=== PATIENT | female | born 1985 | race Caucasian/White ===

== ENCOUNTER → 2016-06-14 | Outpatient (CLI) | payer BC, OTHER ==
[~2016-06-14] MED LIST: ABL/5 PO; ABL10 PO; ACET-1222 PO; ADVIN50/60 INH; ALBU18002 INH; ANT25 PO; ARIP1TAB PO; ARIP1TAB15 PO; ARIP20TA4 PO; ARIP30TA3 PO; BENZ100C7 PO; BENZ100C84 PO; BND25 PO; BUSP5TAB59 PO; CGN1X PO; CHOL200010 PO; CLC/300 PO; CLON0.5T3 PO; CPR500 PO; DFL100 PO; DIPH25CA65 PO; DOCU-105 PO; DOCU100C31 PO; DOXY100C2 PO; DOXYCYLINE PO; ELET20TA PO; ERTA1INJ IV; FERR1TAB13 PO; FERR325T PO; FERR325T51 PO; FLUC100T4 PO; FLUC200T4 PO; GABA1CAP4 PO; GUAI1TAB68 PO; HYDR-3124 PO; HYDR-5688 PO; HYOS1TAB PO; INDO-22 PO; INDO1CAP34 PO; LEVAAER2 INH; LEVO25TA5 PO; LEVO50TA6 PO; LEVOPOW36 PO; LINA1CAP2 PO; LITH1TAB PO; LITH600C PO; LTH300T PO; LTHSR450 PO; MAGN1SOL7 PO; MCRB100 PO; MCRB100HP PO; MCRK20 PO; MCTP EXT; MECL1TAB42 PO; MGNO400 PO; MGRSP NAE; MICO1POW8 TOP; MISCCAP80 PO; MOMLX PO; MRLP17 PO; MTRG45 TOP; MULTTAB58 PO; NITR-5 PO; NORE-38 PO; NORE-39 PO; NORT75CA PO; NRT/25 PO; NYST100010 TOP; NYST80OI TOP; NYSTCRE11; ONDA4TAB10 SL; ONDA4TAB9 PO; POTA10CA28 PO; PROB1TAB16 PO; PRT/40 PO; RISP1TAB3 PO; RISP1TAB68 PO; RIVA1.5T PO; RSP1 PO; SENN8.6T13 PO; SNG10 PO; SYN25 PO; TOBRAMYCIN PO; TOPI1CAP3 PO; TOPI25TA99 PO; TOPI50TA16 PO; TPM25 PO; TRAM-10 PO; TRD10 PO; ULT50 PO; VNTHFA/IN INH; VST25HP PO; VTMB12 PO; WOUN1PAD EXT; XPNINS NEB; XRL10 PO; XRL15 PO; XRL20 PO; ZNT/150 PO; ZNTT/150 PO; [UNRECOGNIZED DRUG - CODE] IART; [UNRECOGNIZED DRUG - CODE] IV; [UNRECOGNIZED DRUG - CODE] IV; [UNRECOGNIZED DRUG - CODE] IV; [UNRECOGNIZED DRUG - CODE] PO
== END | disposition home or self-care (01) ==
LOC: C.FOODA 10:12
PROVIDERS: ATTEND Family Medicine
DX: E66.3 Overweight (principal)

== ENCOUNTER 2016-06-24 13:32 | Inpatient (IN) | payer BC, OTHER ==
[~2016-06-24] VITALS: Ht 119.4 cm; Wt 110.0 kg
[~2016-06-24 13:32] MED LIST changes: -ABL/5 PO; -ABL10 PO; -ADVIN50/60 INH; -ALBU18002 INH; -ARIP1TAB PO; -ARIP20TA4 PO; -ARIP30TA3 PO; -BENZ100C7 PO; -BENZ100C84 PO; -BND25 PO; -BUSP5TAB59 PO; -CGN1X PO; -CHOL200010 PO; -CLC/300 PO; -CLON0.5T3 PO; -CPR500 PO; -DFL100 PO; -DOCU100C31 PO; -DOXY100C2 PO; -DOXYCYLINE PO; -ERTA1INJ IV; -FERR1TAB13 PO; -FERR325T PO; -FLUC100T4 PO; -GABA1CAP4 PO; -GUAI1TAB68 PO; -HYDR-3124 PO; -HYDR-5688 PO; -HYOS1TAB PO; -INDO-22 PO; -INDO1CAP34 PO; -LEVO25TA5 PO; -LEVO50TA6 PO; -LEVOPOW36 PO; -LINA1CAP2 PO; -LITH1TAB PO; -LTH300T PO; -LTHSR450 PO; -MAGN1SOL7 PO; -MCRB100 PO; -MCRB100HP PO; -MCRK20 PO; -MCTP EXT; -MECL1TAB42 PO; -MGNO400 PO; -MGRSP NAE; -MICO1POW8 TOP; -MISCCAP80 PO; -MOMLX PO; -MRLP17 PO; -MTRG45 TOP; -MULTTAB58 PO; -NITR-5 PO; -NORE-38 PO; -NORE-39 PO; -NORT75CA PO; -NRT/25 PO; -NYSTCRE11; -ONDA4TAB10 SL; -POTA10CA28 PO; -PROB1TAB16 PO; -PRT/40 PO; -RISP1TAB3 PO; -RISP1TAB68 PO; -RIVA1.5T PO; -RSP1 PO; -SNG10 PO; -SYN25 PO; -TOBRAMYCIN PO; -TOPI1CAP3 PO; -TOPI25TA99 PO; -TOPI50TA16 PO; -TPM25 PO; -ULT50 PO; -VNTHFA/IN INH; -VTMB12 PO; -WOUN1PAD EXT; -XPNINS NEB; -XRL10 PO; -XRL15 PO; -XRL20 PO; -ZNT/150 PO; -[UNRECOGNIZED DRUG - CODE] IART; -[UNRECOGNIZED DRUG - CODE] IV; -[UNRECOGNIZED DRUG - CODE] IV; -[UNRECOGNIZED DRUG - CODE] IV; -[UNRECOGNIZED DRUG - CODE] PO
--- NOTE | 2016-06-24 14:54 | EMERGENCY ROOM VISIT NOTE ---
History Report prepared by James: Quita Valdez Under the Supervision of: Dr. Devin Martinez M.D. First contact with patient: 13:56 Chief Complaint: MENTAL HEALTH EVALUATION Stated Complaint: SUICIDAL THOUGHTS History of Present Illness The patient is a 31 year old female who presents to the Emergency Room for mental health evaluation. The patient has a history of mental health issues including depression. The patient notes that 6 weeks ago her [place] medication was increased to twice a day due to her depression worsening. She notes that beginning 3 days ago she began to hear voices that were telling her to hurt herself. She did see her Therapist after hearing these voices and was told to call her Psychiatrist but could not get an appointment and was told to come to the ED for inpatient care. The patient notes that she has tried to overdose before but states that she is not in danger now due to her parent's making the house very safe for her. The patient has Spina Bifida and is wheelchair bound. This week she finished a course of antibiotics for a urinary infection. The patient was an inpatient here at [facility] for mental health in July 2015. Source of History: patient Onset: 3 days SHOE SHINER Position: other (global) Quality: other (mental health evaluation) Timing: constant Note: The patient notes hearing voices, depression, and suicidal ideations. Review of Systems See HPI for pertinent positives & negatives. A total of 10 systems reviewed and were otherwise negative. Past Medical & Surgical Medical Problems: (1) Allergic reaction caused by a drug (2) Anxiety (3) Bipolar 1 disorder (4) Depression (5) Gastroparesis (6) GERD (gastroesophageal reflux disease) (7) Hydrocephalus (8) Intractable headache (9) MRSA (methicillin resistant Staphylococcus aureus) (10) Osteomyelitis (11) Shunt placement with revision x8 (12) Spina bifida (13) UTI (urinary tract infection) Surgical Problems: (1) S/P BKA (below knee amputation) bilateral Family History Cancer Diabetes mellitus Lung disease Social History Smoking Status: Never Smoker Alcohol Use: none Drug Use: none Marital Status: single Housing Status: lives with family Occupation Status: unemployed, other Current/Historical Medications Scheduled Aripiprazole (Aripiprazole), 10 MG PO QAM Cholecalciferol (Vitamin D), 2,000 INTER.UNIT PO DAILY Clonazepam (Klonopin), 0.5 MG PO BID Ferrous Sulfate (Iron Supplement), 325 MG PO HS Fluticasone Prop/Salmeterol (Advair Diskus 500/50 60 Dose), 1 PUFF INH BID Gabapentin (Gabapentin), 300 MG PO TID Hydroxyzine Hcl (Atarax), 25 MG PO QD@1200 Hyoscyamine Sulfate (Levsin), 0.125 MG PO QID Linaclotide (Linzess), 290 MCG PO DAILY [place] Carbonate ([place] Carbonate), 600 MG PO TID Multiple Vitamin (Multivitamin), 1 TAB PO DAILY Nortriptyline Hcl (Pamelor), 75 MG PO HS Pantoprazole (Pantoprazole Sodium), 40 MG PO QAM Ranitidine (Zantac), 150 MG PO HS Wound Dressings (Hydrofera Blue Foam Dress), 1 APPLN TOP DAILY Scheduled PRN Acetaminophen (Acetaminophen Extra Stren), 500-1,000 MG PO Q6H PRN for Pain Docusate Sodium (Dulcolax Stool Softener), 100 MG PO DAILY PRN for Constipation Eletriptan Hydrobromide (Relpax), 20 MG PO UD PRN for Migraine Hydroxyzine HCl (Hydroxyzine Pamoate), 25 MG PO Q8 PRN for Anxiety Ketorolac Tromethamine (Ketorolac Tromethamine), 10-20 MG PO UD PRN for Headache Meclizine HCl (Meclizine HCl), 25 MG PO Q8 PRN for Dizziness or Vertigo Nystatin (Topical) (Nystatin), 1 APPLN TOP UD PRN for Yeast Outbreaks Nystatin (Topical) (Nystop), 1 APPLN TOP UD PRN for Skin Irritation Ondansetron (Ondansetron HCl), 4 MG PO DAILY PRN for Nausea Sennosides (Senna Lax), 8.6 MG PO DAILY PRN for Constipation Tramadol (Ultram), 50 MG PO Q4H PRN for Pain Allergies Coded Allergies: Adhesives (Verified Allergy, Intermediate, TAPE- HIVES, 06/24/16) Ceftriaxone (Verified Allergy, Intermediate, rash, 06/24/16) Chlorhexidine (Verified Allergy, Intermediate, RASH, 06/24/16) Ciprofloxacin (Unverified Allergy, Intermediate, hives, 06/24/16) Latex (Verified Allergy, Intermediate, hives, 06/24/16) Levofloxacin (Verified Allergy, Intermediate, rash, 06/24/16) Linezolid (Verified Allergy, Intermediate, rash, 06/24/16) Piperacillin (Verified Allergy, Intermediate, SEVERE RASH, HIVES, 06/24/16) Tazobactam (Verified Allergy, Intermediate, SEVERE RASH, HIVES, 06/24/16) Vancomycin (Verified Allergy, Intermediate, rash, 06/24/16) Tobramycin (Verified Allergy, Mild, MILD RASH ON ARM, RED FACE, 06/24/16) IMPROVED AFTER BENADRYL, TAKING REST OF DOSE Amikacin (Verified Allergy, Unknown, PER DR ROBINS,RXN WAS TO ZOSYN NOT AMKrash;hives, 06/24/16) Sulfamethoxazole w/Trimethoprim (Unverified Allergy, Unknown, Hives, ) Can be pretreated with 10mg Zytrec 45 min prior to admin Physical Exam Vital Signs Date Time Temp Pulse Resp B/P Pulse Ox O2 Delivery O2 Flow Rate FiO2 06/24/16 19:00 90 20 126/84 99 Room Air 06/24/16 16:27 102 18 116/78 98 Room Air 06/24/16 13:38 36.6 107 18 131/84 96 Room Air Physical Exam GENERAL: Patient is in no acute distress. Meade catheter in place with clear urine draining. HEENT: No acute trauma, normocephalic atraumatic, mucous membranes moist, no nasal congestion, no scleral icterus. NECK: No stridor, no adenopathy, no meningismus, trachea is midline. LUNGS: Few scattered wheezing, no rhonchi, breath sounds are equal, no respiratory distress. HEART: Mildly tachycardic but regular, no murmur. ABDOMEN: Soft, nontender, bowel sounds positive, no hernias, no peritonitis. EXTREMITIES: No evidence of trauma to upper extremities, lower extremities consistent with wheelchair bound status. NEUROLOGIC: Awake, alert, oriented x 3. Moving upper extremities equally. Lower extremities consistent with spina bifida and wheelchair bound status. SKIN: No rash, no jaundice, no diaphoresis. PSYCH: Cooperative, voluntary, admits to suicidal thoughts but states that she does not think she could hurt herself because she is so closely watched. Medical Decision & Procedures Laboratory Results 06/24/16 17:10 06/24/16 17:10 Test 06/24/16 15:00 06/24/16 17:10 Urine Color YELLOW Urine Appearance CLEAR (CLEAR) Urine pH 7.5 (4.5-7.5) Urine Specific [place] 1.002 (1.000-1.030) Urine Protein NEG (NEG) Urine Glucose (UA) NEG (NEG) Urine Ketones NEG (NEG) Urine Occult Blood TRACE (NEG) Urine Nitrite NEG (NEG) Urine Bilirubin NEG (NEG) Urine Urobilinogen NEG (NEG) Urine Leukocyte Esterase MODERATE (NEG) Urine WBC (Auto) 10-30 /hpf (0-5) Urine RBC (Auto) 0-4 /hpf (0-4) Urine Hyaline Casts (Auto) 1-5 /lpf (0-5) Urine Epithelial Cells (Auto) 10-20 /lpf (0-5) Urine Bacteria (Auto) 1+ (NEG) Urine Opiates Screen NEG (NEG) Urine Methadone, Qualitative NEG (NEG) Urine Barbiturates NEG (NEG) Urine Phencyclidine (PCP) Level NEG (NEG) Ur Amphetamine/Methamphetamine NEG (NEG) MDMA (Ecstasy) Screen NEG (NEG) Urine Benzodiazepines Screen NEG (NEG) Urine Cocaine Metabolite NEG (NEG) Urine Marijuana (THC) NEG (NEG) Red Blood Count 4.27 M/uL (4.2-5.4) Mean Corpuscular Volume 97.4 fL (80-100) Mean Corpuscular Hemoglobin 31.1 pg (25-34) Mean Corpuscular Hemoglobin Concent 32.0 g/dl (32-36) RDW Standard Deviation 53.5 fL (36.4-46.3) RDW Coefficient of Variation 15.1 % (11.5-14.5) Mean Platelet Volume 10.7 fL (7.4-10.4) Anion Gap 11.0 mmol/L (3-11) Est Creatinine Clear Calc Drug Dose 112.8 ml/min Estimated GFR () 141.2 Estimated GFR (Non- 121.9 BUN/Creatinine Ratio 14.0 (10-20) Calcium Level 8.9 mg/dl (8.5-10.1) Total Bilirubin 0.2 mg/dl (0.2-1) Aspartate Amino Transf (AST/SGOT) 16 U/L (15-37) Alanine Aminotransferase (ALT/SGPT) 22 U/L (12-78) Alkaline Phosphatase 96 U/L (45-117) Total Protein 7.1 gm/dl (6.4-8.2) Albumin 3.2 gm/dl (3.4-5.0) Globulin 3.9 gm/dl (2.5-4.0) Albumin/Globulin Ratio 0.8 (0.9-2) Human Chorionic Gonadotropin, Qual NEG (NEG) Chemistry Specimen Hemolysis Salicylates Level < 1.7 mg/dl (2.8-20) Acetaminophen Level < 2 ug/ml (10-30) [place] Level 1.2 mMOL/L (0.6-1.2) Ethyl Alcohol mg/dL < 3.0 mg/dl (0-3) Laboratory results reviewed by me. Medications Administered Medications (Trade) Dose Ordered Sig/Brenna Route Start Time Stop Time Status Last Admin Dose Admin Gabapentin (Neurontin Cap) 300 mg NOW STAT PO 06/24/16 19:30 06/24/16 19:35 DC 06/24/16 19:48 300 MG Hyoscyamine Sulfate (Levsin Tab) 0.125 mg NOW STAT PO 06/24/16 19:30 06/24/16 19:35 DC 06/24/16 19:48 0.125 MG [place] Carbonate ([place] Carbonate Tab) 600 mg NOW ONCE PO 06/24/16 20:00 06/24/16 20:01 DC 06/24/16 20:00 600 MG ED Course 1358: The patient was evaluated in room A7. A complete history and physical exam was performed. 1821: Bed search is being done for the patient. 1929: Levsin Tab 0.125 mg PO, [place] Carbonate Tab 600 mg PO, Neurontin Cap 300 mg PO. 2104: The patient will go to [facility] as an inpatient. Medical Decision The patient is a 31 year old female who presents to the ED for mental health evaluation. Differential diagnoses considered include suicidal ideation, UTI, lithium toxicity, thyroid disorder, depression, electrolyte imbalance. . There is no leukocytosis or anemia. No significant electrolyte abnormality, kidney failure or hepatitis. Thyroid testing is still pending. testing is negative. Urinalysis shows some contamination, no obvious infection , urine culture is pending. Urine tox was negative. Alcohol level was undetectable. Aspirin and Tylenol levels were undetectable. [place] level was not toxic. The patient presents with suicidal ideation. She would like to stay in the hospital voluntarily. She has been through this type of situation before. The patient received her normal evening medications. All the meds were given orally. She has been cooperative. She was seen by the [facility]. psychiatric services, the patient will be brought in to this hospital's psychiatric facility. I was asked to order a MRSA nasal swab, this was done, the result is pending. I did feel the patient was medically clear for a psychiatric admission. Impression Primary Impression: Suicidal ideation Scribe Attestation The scribe's documentation has been prepared under my direction and personally reviewed by me in its entirety. I confirm that the note above accurately reflects all work, treatment, procedures, and medical decision making performed by me. Departure Information Dispostion Mental Health Acute Care Referrals Darvin Lea D.O.Int.Med. (PCP) Patient Instructions My [facility]
[2016-06-24 15:22] LABS: URINE APPEARANCE CLEAR (CLEAR); URINE BILIRUBIN NEG (NEG); URINE COLOR YELLOW; URINE NITRITE NEG (NEG); URINE PH 7.5 (4.5-7.5); URINE SPECIFIC GRAVITY 1.002 (1.000-1.030); UROBILINOGEN NEG (NEG); ZZURINE CULT IF INDIC CATH YES
[2016-06-24 15:28] LABS: MANUAL MICROSCOPIC REQUIRED? NO; REVIEW REQ? NO
[2016-06-24 15:48] LABS: BENZODIAZEPINE, URINE NEG (NEG); COCAINE,URINE NEG (NEG); PHENCYCLIDINE, URINE NEG (NEG)
[2016-06-24 17:34] LABS: HEMATOCRIT 41.6 % (37-47); MEAN CELL VOLUME 97.4 fL (80-100); MEAN CORPUSCULAR HEMOGLOBIN 31.1 pg (25-34); MEAN PLATELET VOLUME 10.7 fL (7.4-10.4); PLATELET COUNT 203 K/uL (130-400); RED BLOOD COUNT 4.27 M/uL (4.2-5.4); WHITE BLOOD COUNT 9.87 K/uL (4.8-10.8)
[2016-06-24 18:02] LABS: PREG INTERNAL NEGATIVE QC NEG CLEAR BACKGROUND; PREG INTERNAL POSITIVE QC POS CONTROL LINE
[2016-06-24 18:04] LABS: ACETAMINOPHEN < 2 ug/ml (10-30); ALB/GLOB RATIO 0.8 (0.9-2); CALCIUM 8.9 mg/dl (8.5-10.1); CREATININE 0.62 mg/dl (0.60-1.20); LITHIUM 1.2 mMOL/L (0.6-1.2); POTASSIUM 4.1 mmol/L (3.5-5.1)
[2016-06-24] MEDS ORDERED: LITHIUM CARBONATE 300 MG TAB PO STA (19:30)
[2016-06-24] MEDS ORDERED: GABAPENTIN 300 MG CAP PO STA (19:30)
[2016-06-24] MEDS ORDERED: HYOSCYAMINE SULFATE 0.125 MG SL TAB PO STA (19:30)
[2016-06-24] MEDS ORDERED: LITHIUM CARBONATE 300 MG TAB PO ONE (20:00)
[2016-06-24 21:34] VITALS: O2SAT 97
[2016-06-24] MEDS ORDERED: TRAMADOL HCL 50 MG TAB PO PRN (21:45)
[2016-06-24] MEDS ORDERED: NYSTATIN POWDER 15GM BTL EXT PRN (21:45)
[2016-06-24] MEDS ORDERED: ALUMINUM/MAGNESIUM SUSP 30 ML UDC PO PRN (21:45)
[2016-06-24] MEDS ORDERED: BISMUTH SUBSALICYLATE PER ML OMNICELL CHARGE PO PRN (21:45)
[2016-06-24] MEDS ORDERED: ACETAMINOPHEN 500 MG TAB PO PRN (21:45)
[2016-06-24] MEDS ORDERED: hydrOXYzine HCL 25 MG TAB PO PRN ×2 (21:45)
[2016-06-24] MEDS ORDERED: SENNA 8.6 MG TAB PO PRN (21:45)
[2016-06-24] MEDS ORDERED: KETOROLAC TROMETHAMINE 10 MG TAB PO PRN (21:45)
[2016-06-24] MEDS ORDERED: MECLIZINE HCL 25 MG TAB PO PRN (21:45)
[2016-06-24] MEDS ORDERED: DOCUSATE SODIUM 100 MG CAP PO PRN (21:45)
[2016-06-24] MEDS ORDERED: ONDANSETRON 4 MG TAB PO PRN (21:45)
[2016-06-24] MEDS ORDERED: NYSTATIN OINT 15 GM TUBE EXT PRN (21:45)
[2016-06-24] MEDS ORDERED: MAGNESIUM HYDROXIDE SUSP 30 ML UDC PO PRN (21:45)
[2016-06-24] MEDS ORDERED: SODIUM CHLORIDE 0.65% NA SOLN 45 ML (OCEAN) PRN (21:45)
[2016-06-24 22:02] VITALS: BP 136/89; PULSE 92; TEMP 36.5; Ht 119.4 cm; Wt 110.0 kg
[2016-06-24 22:20] LABS: THYROID STIMULATING HORMONE 6.55 uIu/ml (0.300-4.500)
[2016-06-24] MEDS ORDERED: NURSING VERBAL MED ORDER ONE ×2 (22:45→23:00)
[2016-06-24] MEDS ORDERED: NORTRIPTYLINE HCL 25 MG CAP PO SCH (23:00)
[2016-06-24] MEDS ORDERED: CLONAZEPAM 0.5 MG TAB PO ONE (23:00)
[2016-06-24] MEDS: FLUTICASONE/SALMETEROL (ADVAIR) 500/50 INH 14 PUFF INH SCH (23:50)
[2016-06-24] MEDS: NORTRIPTYLINE HCL 25 MG CAP PO SCH (23:56)
[2016-06-24] MEDS: HYOSCYAMINE SULFATE 0.125 MG SL TAB PO SCH (23:57)
[2016-06-25 06:52] VITALS: BP 118/75; PULSE 98; TEMP 36.5
[2016-06-25] MEDS ORDERED: LITHIUM CARBONATE 300 MG TAB PO SCH (09:00)
[2016-06-25] MEDS ORDERED: ARIPIprazole TAB 10 MG TAB PO SCH (09:00)
[2016-06-25] MEDS: LINACLOTIDE 290 MCG CAP PO SCH ×2 (09:00→09:09)
[2016-06-25] MEDS: FERROUS SULFATE 325 MG TAB PO SCH ×2 (09:07→17:15)
[2016-06-25] MEDS: CLONAZEPAM 0.5 MG TAB PO SCH ×2 (09:08→20:59)
[2016-06-25] MEDS: HYOSCYAMINE SULFATE 0.125 MG SL TAB PO SCH ×4 (09:08→20:59)
[2016-06-25] MEDS: LITHIUM CARBONATE 300 MG TAB PO SCH ×2 (09:09→21:00)
[2016-06-25] MEDS: MULTIVITAMIN TAB PO SCH (09:09)
[2016-06-25] MEDS: GABAPENTIN 300 MG CAP PO SCH ×3 (09:09→21:00)
[2016-06-25] MEDS: CHOLECALCIFEROL 1000 INTER.UNIT TAB PO SCH (09:10)
[2016-06-25] MEDS: PANTOprazole SOD 40 MG TAB PO SCH (09:10)
[2016-06-25] MEDS: FLUTICASONE/SALMETEROL (ADVAIR) 500/50 INH 14 PUFF INH SCH (09:26)
[2016-06-25] MEDS: ARIPIprazole TAB 5 MG TAB PO SCH (09:42)
--- NOTE | 2016-06-25 10:01 | Psych Management Progress Note ---
Psychiatry Miscellaneous Date of Service: Jun 25, 2016. Patient seen, MS assessed. Rates mood as 3. Cooperative with care and treatment plan as outlined by NATURAL RESOURCES PROFESSOR. Encouraged participation in therapeutic activities. Patient overwhelmed today, notes stressor of living with mother and dealing with anger. Amenable to family meeting. She is engaging in group activities.
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
[2016-06-25] MEDS: hydrOXYzine HCL 25 MG TAB PO SCH (11:52)
[2016-06-25] MEDS: RANITIDINE HCL 150 MG TAB PO SCH ×2 (20:59→21:02)
[2016-06-25] MEDS: NORTRIPTYLINE HCL 25 MG CAP PO SCH (21:00)
[2016-06-25] MEDS ORDERED: NORTRIPTYLINE HCL 25 MG CAP PO SCH (21:00)
[2016-06-26 07:02] VITALS: BP 125/77; PULSE 103; TEMP 36.6
[2016-06-26 07:19] LABS: CHOLESTEROL/HDL RATIO 3.6; THYROID STIMULATING HORMONE 8.07 uIu/ml (0.300-4.500)
[2016-06-26] MEDS: FLUTICASONE/SALMETEROL (ADVAIR) 500/50 INH 14 PUFF INH SCH (08:24)
[2016-06-26] MEDS: ARIPIprazole TAB 5 MG TAB PO SCH (08:28)
[2016-06-26] MEDS: FERROUS SULFATE 325 MG TAB PO SCH (08:29)
[2016-06-26] MEDS: HYOSCYAMINE SULFATE 0.125 MG SL TAB PO SCH ×2 (08:30→11:58)
[2016-06-26] MEDS: CLONAZEPAM 0.5 MG TAB PO SCH (08:30)
[2016-06-26] MEDS: GABAPENTIN 300 MG CAP PO SCH ×2 (08:31→13:43)
[2016-06-26] MEDS: PANTOprazole SOD 40 MG TAB PO SCH (08:31)
[2016-06-26] MEDS: CHOLECALCIFEROL 1000 INTER.UNIT TAB PO SCH (08:31)
[2016-06-26] MEDS: MULTIVITAMIN TAB PO SCH (08:31)
[2016-06-26] MEDS: LINACLOTIDE 290 MCG CAP PO SCH (08:32)
[2016-06-26] MEDS ORDERED: VNTHFA/IN INH (08:36)
[2016-06-26] MEDS: LITHIUM CARBONATE 300 MG TAB PO SCH (08:39)
--- NOTE | 2016-06-26 09:33 | Psychiatric Progress Notes ---
Progress Note Date of Service Jun 26, 2016. Interval History 31 yo female admitted voluntarily on 06/25/16 with depression and command hallucinations to kill herself. Stressors include ongoing strife with mother who is her primary caregiver, and of dog in May. Chief Complaint "I'm in a bad mood. ". Subjective Patient was seen & assessed interval progress reviewed with nursing. The patient says that she awoke at 0430 today and could not get back to sleep. Her mood is "grumpy". She says that she continues to her noises "like beeps, and a phone ringing" that are as real to her as my voice is, and occur when she is awake and alert. She admits to fleeting SI this AM when she awoke "but I said ' No way, that ain't happening'.". She was assisted to wash her hair yesterday and change the dressing on her catheter. She denies visual experiences. Nursing reports that she has been quite social with peers, laughing, and described her as childlike. Review of Systems Constitutional: + fatigue (with DILIA) ENT: No dental problems, No hearing loss, No nasal symptoms, No problem reported, No sore throat, No tinnitus, No trouble swallowing, No unusual epistaxis Respiratory: No cough, No dyspnea at rest, No dyspnea on exertion, No hemoptysis, No problem reported, No shortness of breath, No sputum, No wheezing Cardiovascular: No PND, No chest pain, No claudication, No edema, No orthopnea , No palpitations, No problem reported Abdomen: No GI bleeding, No constipation, No diarrhea, No nausea, No pain, No problem reported, No vomiting Musculoskeletal: No calf pain, No joint pain, No muscle pain, No problem reported, No swelling Neurologic: No balance problems, No memory loss, No numbness/tingling, No paralysis, No problem reported, No vertigo, No weakness Psychiatric: + depression symptoms (with auditory hallucinations), + insomnia, + problem reported (irritablity) Sleep Information Total Hours of Sleep: 6.00 Meal Information Percent of Breakfast Consumed: 90 Percent of Dinner Consumed: 50 Mental Status Exam During interview pt is: alert and oriented, cooperative Appearance: appropriately dressed, disheveled Eye contact is: good Motor behavior is: no abnormal motor movements Speech: normal in rate, rhythm & volume Affect: blunted Mood is: depressed, irritable Thought process: goal directed Thought content: other (hallucinations of noises like beeps and phones ringing) Suicidal thought are: present Homicidal thoughts are: denied Hallucinations: denies auditory, denies visual Impression Adjusting well to the structure and support of the milieu. Able to be happy and laugh with her peers. Continues to report hallucinations and poor mood with fleeting SI. Abilify increased yesterday. Will arrange family meeting with mother since much of her unhappiness lies in their dysfunctional relationship and her desire to be more independent, issues that they have struggles with for a long time. UA cultured out pseudomonas and there are no PO sensitive ABX that she can take. Will consult [facility] hospitalists to evaluate. If IV ABX needed, will require transfer to the medical floor. Apollo level also elevated 1.3. Will hold AM dose and restart tonight 300 mg. AM and 600 mg. HS, with another level in 5 days. Plan (1) Migraines (2) Schizoaffective disorder, bipolar type 06/26 - Continue Abilify 12.5 mg daily - Apollo level elevated at 1.3 today. Will reduce dose to 300 mg. AM and 600 mg HS, and hold AM dose today. - Repeat lithium level in 5 days on 07/02 - Q 15 min checks for safety - Reality orientation - Arrange family meeting for tomorrow - Encourage participation in group and individual counseling - Obtain OP records from current providers, and coordinate care - (3) Spina bifida 06/26 - Assist the patient with ADL's as needed - Patient has suprapubic catheter. Change dressing and irrigate daily as per OP routine - Patient has FRIED's associated with hydrocephalus. Continue tramadol and tylenol prn (4) UTI (urinary tract infection) 06/26 - Culture growing pseudomonas, but she is resistant or allergic to available PO ABX. May need IV ABX - Consult [facility] hospitalists to evaluate - Pharmacy is suggesting cefapime 1 gm q 12 hrs Discharge / Aftercare Planning Psychiatrist: Name: Dr. Amanda Date of Appointment: Jun 28, 2016 Therapist: Name: Sandra Baker; [facility] Date of Appointment: Jun 28, 2016 Systems Requirements Planner: Name: Theresa Culp Visit Code E&M Code: 67629 Risk Factors Assessment : Yes /single/: Yes Higher / Fall in social status: No Access to guns: No Health problems: Yes Mental Health Diagnoses: Yes Substance use disorders: No Previous attempt: Yes Previous psychiatric stay: Yes Smoker: No Protective Factors Assessment Adventism beliefs: Yes : No Responsible for young children: No Employed: No Stable relationships: Yes Supportive family: Yes Data Vital Signs Last 24 Hrs: Date Time Temp Pulse Resp B/P Pulse Ox O2 Delivery O2 Flow Rate FiO2 06/26/16 07:02 36.6 103 16 125/77 Meds Administered Last 24 Hrs: Meds Administered (Past 24Hrs) Medications (Trade) Dose Ordered Sig/Brenna Route Start Time Stop Time Status Last Admin Dose Admin Gabapentin (Neurontin Cap) 300 mg NOW STAT PO 06/24/16 19:30 06/24/16 19:35 DC 06/24/16 19:48 300 MG Hyoscyamine Sulfate (Levsin Tab) 0.125 mg NOW STAT PO 06/24/16 19:30 06/24/16 19:35 DC 06/24/16 19:48 0.125 MG Apollo Carbonate (Apollo Carbonate Tab) 600 mg NOW ONCE PO 06/24/16 20:00 06/24/16 20:01 DC 06/24/16 20:00 600 MG Hydroxyzine HCl (Vistaril Tab) 25 mg Q4H PRN PO 06/24/16 21:45 07/24/16 21:44 06/25/16 05:05 25 MG Clonazepam (Klonopin Tab) 0.5 mg BID PO 06/25/16 09:00 07/25/16 08:59 06/26/16 08:30 0.5 MG Salmeterol Xinafoate/ Fluticasone (Advair Diskus 500/50 Inh) 1 puff BID INH 06/25/16 09:00 07/25/16 08:59 06/26/16 08:24 1 PUFF Gabapentin (Neurontin Cap) 300 mg TID PO 06/25/16 09:00 07/25/16 08:59 06/26/16 08:31 300 MG Hydroxyzine HCl (Vistaril Tab) 25 mg QD@1200 PO 06/25/16 12:00 07/25/16 11:59 06/25/16 11:52 25 MG Hyoscyamine Sulfate (Levsin Tab) 0.125 mg QID PO 06/25/16 09:00 07/25/16 08:59 06/26/16 08:30 0.125 MG Multivitamins (Multivitamin Tab) 1 tab DAILY PO 06/25/16 09:00 07/25/16 08:59 06/26/16 08:31 1 TAB Pantoprazole Sodium (Protonix Tab) 40 mg QAM PO 06/25/16 09:00 07/25/16 08:59 06/26/16 08:31 40 MG Ranitidine HCl (zANTac TAB) 150 mg HS PO 06/25/16 21:00 07/25/16 20:59 06/25/16 20:59 150 MG Cholecalciferol (Vitamin D Tab) 2,000 inter.unit DAILY PO 06/25/16 09:00 07/25/16 08:59 06/26/16 08:31 2,000 INTER.UNIT Ferrous Sulfate (Feosol Tab) 325 mg BIDM PO 06/25/16 09:00 07/25/16 08:59 06/26/16 08:29 325 MG Apollo Carbonate (Apollo Carbonate Tab) 600 mg BID PO 06/25/16 09:00 07/25/16 08:59 06/25/16 21:00 600 MG Nortriptyline HCl (Pamelor Cap) 100 mg HS PO 06/24/16 23:00 07/24/16 22:59 06/25/16 21:00 100 MG Clonazepam (Klonopin Tab) 0.5 mg ONE ONCE PO 06/24/16 23:00 06/24/16 23:01 DC 06/24/16 23:55 0.5 MG Aripiprazole (Abilify Tab) 12.5 mg QAM PO 06/25/16 09:00 07/25/16 08:59 06/26/16 08:28 12.5 MG Lab Results Last 24 Hrs: Last 24 Hours Test 06/26/16 06:20 Fasting Glucose 95 mg/dl Triglycerides Level 135 mg/dl Cholesterol Level 190 mg/dl HDL Cholesterol 53 mg/dl LDL Cholesterol, Calculated 110 mg/dl VLDL Cholesterol, Calculated 27 mg/dl Cholesterol/HDL Ratio 3.6 Thyroid Stimulating Hormone (TSH) 8.070 uIu/ml Apollo Level 1.3 mMOL/L Problem Qualifiers (1) Spina bifida: Presence of hydrocephalus: with hydrocephalus
[2016-06-26] MEDS: hydrOXYzine HCL 25 MG TAB PO SCH (11:58)
[2016-06-26] MEDS ORDERED: LTH300T PO ×2 (13:57)
[2016-06-26] MEDS ORDERED: ABL/5 PO (13:57)
--- NOTE | 2016-06-26 13:59 | Discharge Instructions ---
Discharge Instructions Admission Reason for Admission: Major Depression With Psychotic Features Discharge Discharge Diagnosis / Problem: Schizoaffective disorder, bipolar type, depressed Discharge Goals Goal(s): Decrease discomfort Activity Recommendations Activity Limitations: resume your previous activity . Instructions / Follow-Up Instructions / Follow-Up . SPECIAL CARE INSTRUCTIONS: 1. Follow through with your scheduled aftercare appointments. If unable to keep an appointment, please call to reschedule. 2. Take your medication only as prescribed. Medication should not be changed or stopped without the approval of your doctor. In the event of worsening symptoms or concerns about side effects, contact your doctor immediately. 3. Utilize new healthy coping skills, anger management skills, and stress management skills learned during your hospitalization. Journal feelings and process them with a support person. Identify stressors or situations that may result in relapse, deterioration or inappropriate behaviors and develop a plan to deal with those issues. 4. If your coping skills are ineffective and you are in crisis, contact your outpatient providers for direction. If unable to reach your providers, please call the CAN HELP LINE AT or go to the closest Emergency Room. 5. Avoid alcohol and un-prescribed drugs. 6. You have been provided with the Mental Health Advance Directives Pamphlet for your review. AFTERCARE APPOINTMENTS: * Please call your insurance company prior to your scheduled appointment to confirm your aftercare providers are covered. Take your insurance information to your appointments. . Diet Recommendations Diet(s): Regular Diet Laboratory Results Hemoglobin A1c Test 05/04/16 09:15 Range/Units Estimated Average Glucose 88 mg/dl Hemoglobin A1c 4.7 4.5-5.6 % Lipid Panel Test 06/26/16 06:20 Range/Units Triglycerides Level 135 0-150 mg/dl Cholesterol Level 190 0-200 mg/dl HDL Cholesterol 53 mg/dl Cholesterol/HDL Ratio 3.6 LDL Cholesterol, Calculated 110 mg/dl Medical Emergencies . Who to Call and When: Medical Emergencies: If at any time you feel your situation is an emergency, please call 911 immediately. . . "Provider Documentation" section prepared by Lisa Granger. VTE Core Measure Inpt VTE Proph given/why not?: Treatment not indicated [place] Drug Monitoring Program Drug Monitoring Findings: Patient has a UTI, and being transferred to the medical floor for IV antibiotics
[2016-06-26 14:47] VITALS: BP 125/77; PULSE 103; TEMP 36.6; O2SAT 97
[2016-06-26] MEDS ORDERED: LITHIUM CARBONATE 300 MG TAB PO SCH (22:00)
[2016-06-27] MEDS ORDERED: LITHIUM CARBONATE 300 MG TAB PO SCH (09:00)
--- NOTE | 2016-06-27 11:45 | Discharge Summary ---
Discharge Summary Dates / Dispostion Admission Date / Time: Jun 24, 2016 at 21:09 Discharge Date: Jun 26, 2016 Discharge Disposition: Acute care facility Principal Diagnosis (1) Schizoaffective disorder, bipolar type Problem List (1) Migraines (2) Hydrocephalus (3) Spina bifida (4) UTI (urinary tract infection) Consultations Dr. Everette Butler to manage UTI with treatment resistance Discharge / Aftercare Planning Psychiatrist: Name: Dr. Amanda Date of Appointment: Jun 28, 2016 Therapist: Name: Sandra Baker; [facility] Date of Appointment: Jun 28, 2016 Geotechnical Field Technician: Name: Theresa Culp Medication Reconciliation New Medications: [place] Carbonate ([place] Carbonate) 300 Mg Tab 300 MG PO QAM, #1 TAB [place] Carbonate ([place] Carbonate) 300 Mg Tab 600 MG PO HS, #1 TAB Changed Medications: Aripiprazole (Abilify) 5 Mg Tab 12.5 MG PO DAILY for 30 Days, #75 TAB 1 Refill (Changed from: Aripiprazole 10 Mg Tab 10 Mg PO QAM) Continued Medications: Acetaminophen (Acetaminophen Extra Stren) 500 Mg Tab 500-1000 MG PO Q6H PRN for Pain Albuterol Hfa (Ventolin Hfa) 200 Puffs/30143 Mcg Aers 2 PUFFS INH Q4 PRN for Shortness of Breath, #1 INHALER 0 Refills Cholecalciferol (Vitamin D) 2,000 Unit Cap 2000 INTER.UNIT PO DAILY Clonazepam (Klonopin) 0.5 Mg Tab 0.5 MG PO BID, TAB Docusate Sodium (Dulcolax Stool Softener) 100 Mg Cap 100 MG PO DAILY PRN for Constipation Eletriptan Hydrobromide (Relpax) 20 Mg Tab 20 MG PO UD PRN for Migraine TAKE 1 TABLET AT ONSET OF MIGRAINE, MAY REPEAT ONCE AFTER 2 HOURS. MAXIMUM 2 DOSES/24 HOURS. Ferrous Sulfate (Iron Supplement) 325 Mg Tab 325 MG PO BIDM Fluticasone Prop/Salmeterol (Advair Diskus 500/50 60 Dose) 1 Ea Aerp 1 PUFF INH BID, INHALER Gabapentin (Gabapentin) 300 Mg Cap 300 MG PO TID Hydroxyzine HCl (Hydroxyzine Pamoate) 25 Mg Tab 25 MG PO Q8 PRN for Anxiety Hydroxyzine Hcl (Atarax) 25 Mg Tab 25 MG PO QD@1200, TAB Hyoscyamine Sulfate (Levsin) 0.125 Mg Tab 0.125 MG PO QID Ketorolac Tromethamine (Ketorolac Tromethamine) 10 Mg Tab 10-20 MG PO UD PRN for Headache TAKE 1 TO 2 TABLETS TWICE A DAY NEEDED FOR HEADACHE/SEVERE PAIN, MAXIMUM 2 DOSES 3 DAYS PER WEEK Linaclotide (Linzess) 290 Mcg Cap 290 MCG PO DAILY Meclizine HCl (Meclizine HCl) 25 Mg Tab 25 MG PO Q8 PRN for Dizziness or Vertigo Multiple Vitamin (Multivitamin) 1 Tab Tab 1 TAB PO DAILY, TAB Nortriptyline Hcl (Pamelor) 75 Mg Cap 100 MG PO HS, CAP TAKE THIS MEDICATION 2 TO 3 HOURS BEFORE BEDTIME Nystatin (Topical) (Nystatin) 100,000 Unit/Gm Oin 1 APPLN TOP UD PRN for Yeast Outbreaks, GM Nystatin (Topical) (Nystop) 100,000 Unit/Gm Pow 1 APPLN TOP UD PRN for Skin Irritation APPLY DIRECTED Ondansetron (Ondansetron HCl) 4 Mg Tab 4 MG PO DAILY PRN for Nausea Pantoprazole (Pantoprazole Sodium) 40 Mg Tab 40 MG PO QAM Ranitidine (Zantac) 150 Mg Tab 150 MG PO HS, TAB Sennosides (Senna Lax) 8.6 Mg Tab 8.6 MG PO DAILY PRN for Constipation Tramadol (Ultram) 50 Mg Tab 50 MG PO Q4H PRN for Pain, TAB Wound Dressings (Hydrofera Blue Foam Dress) 1 Pad Pad 1 APPLN TOP DAILY 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 Discontinued Medications: [place] Carbonate ([place] Carbonate) 600 Mg Cap 600 MG PO BID, CAP Admission HPI Per the Admitting provider: Please see attached H&P Hospital Course (1) Migraines (2) Schizoaffective disorder, bipolar type 06/26 - Continue Abilify 12.5 mg daily - [place] level elevated at 1.3 today. Will reduce dose to 300 mg. AM and 600 mg HS, and hold AM dose today. - Repeat lithium level in 5 days on 07/02 - Q 15 min checks for safety - Reality orientation - Arrange family meeting for tomorrow - Encourage participation in group and individual counseling - Obtain OP records from current providers, and coordinate care - (3) Spina bifida 06/26 - Assist the patient with ADL's as needed - Patient has suprapubic catheter. Change dressing and irrigate daily as per OP routine - Patient has FRIED's associated with hydrocephalus. Continue tramadol and tylenol prn (4) UTI (urinary tract infection) 06/26 - Culture growing pseudomonas, but she is resistant or allergic to available PO ABX. May need IV ABX - Consult [facility] hospitalists to evaluate - Pharmacy is suggesting cefapime 1 gm q 12 hrs Risk Factors Assessment : Yes /single/: Yes Higher / Fall in social status: No Access to guns: No Health problems: Yes Mental Health Diagnoses: Yes Substance use disorders: No Previous attempt: Yes Previous psychiatric stay: Yes Smoker: No Protective Factors Assessment Bahai beliefs: Yes : No Responsible for young children: No Employed: No Stable relationships: Yes Supportive family: Yes Day of Discharge Assessment COURSE OF HOSPITALIZATION: The patient was on our unit for 2 days, having been admitted with depressed mood and auditory hallucinations commanding her to hurt herself. Abilify was adjusted upwardly to 12.5 mg. daily. UA/culture on admission grew out pseudomonas, and all sensitive ABX were unavailable to her due to allergies. Dr. Everette Reza was consulted in view of possible need for ABX. He determined that she would need the IV ABX and so she was discharged from our unit to the medical floor for IV's. DAY OF DISCHARGE ASSESSMENT: Please refer to the daily progress note dated . Total Time Total Time Spent (min): Less than 30 minutes Total Time Included: discharge planning, medication reconciliation, communication with other providers Discharge Instructions Activity Recommendations: resume regular activity Tobacco Cessation at Discharge FDA approved Prescription: non-smoker
[2016-07-08] MEDS ORDERED: DOCU-105 PO (10:17)
[2016-07-08] MEDS ORDERED: LTH300T PO (10:17)
[2016-07-08] MEDS ORDERED: ABL10 PO (10:17)
[2016-07-08] MEDS ORDERED: SENN8.6T13 PO (10:17)
[2016-07-08] MEDS ORDERED: MAGN1SOL7 PO (10:17)
[2016-07-08] MEDS ORDERED: MRLP17 PO (10:17)
[2016-07-08] MEDS ORDERED: MOMLX PO (10:17)
[2016-07-08] MEDS ORDERED: MCTP EXT (10:17)
[2016-07-08] MEDS ORDERED: SYN25 PO (10:17)
[2016-07-08] MEDS ORDERED: LITH1TAB PO (11:02)
[2016-07-08] MEDS ORDERED: ARIP20TA4 PO (11:02)
[2016-07-08] MEDS ORDERED: LEVOPOW36 PO (15:52)
[2016-09-02] MEDS ORDERED: CLC/300 PO (07:49)
[2016-09-23] MEDS ORDERED: TOPI50TA16 PO (10:28)
[2016-09-23] MEDS ORDERED: INDO-22 PO (10:28)
[2016-09-23] MEDS ORDERED: ARIP30TA3 PO (10:28)
[2016-09-26] MEDS ORDERED: ERTA1INJ IV (15:06)
[2016-10-26] MEDS ORDERED: [UNRECOGNIZED DRUG - CODE] IV (15:52)
[2016-10-26] MEDS ORDERED: MCRK20 PO (16:06)
[2016-11-17] MEDS ORDERED: BND25 PO (14:33)
[2016-11-18] MEDS ORDERED: CPR500 PO (10:36)
[2016-11-18] MEDS ORDERED: XRL10 PO (10:36)
[2016-12-28] MEDS ORDERED: DFL100 PO (10:32)
[2017-01-11] MEDS ORDERED: LEVO25TA5 PO (13:23)
[2017-01-11] MEDS ORDERED: BENZ100C84 PO (16:58)
[2017-01-11] MEDS ORDERED: XPNINS NEB (17:08)
[2017-01-14] MEDS ORDERED: [UNRECOGNIZED DRUG - CODE] IART (10:53)
[2017-01-14] MEDS ORDERED: RIVA1.5T PO (12:41)
[2017-02-10] MEDS ORDERED: CHOL200010 PO (13:04)
[2017-02-10] MEDS ORDERED: ADVIN50/60 INH (13:04)
[2017-02-10] MEDS ORDERED: NRT/25 PO (13:23)
[2017-02-10] MEDS ORDERED: MECL1TAB42 PO (13:52)
[2017-02-10] MEDS ORDERED: MGRSP NAE (13:52)
[2017-02-10] MEDS ORDERED: WOUN1PAD EXT (13:52)
[2017-02-10] MEDS ORDERED: VTMB12 PO (15:08)
[2017-02-10] MEDS ORDERED: HYOS1TAB PO (16:40)
[2017-02-10] MEDS ORDERED: GABA1CAP4 PO (16:40)
[2017-02-10] MEDS ORDERED: PRT/40 PO (16:40)
[2017-02-10] MEDS ORDERED: LINA1CAP2 PO (16:40)
[2017-02-10] MEDS ORDERED: RSP1 PO (16:58)
[2017-02-10] MEDS ORDERED: SNG10 PO (16:58)
[2017-02-10] MEDS ORDERED: INDO1CAP34 PO (16:58)
[2017-02-10] MEDS ORDERED: LITH1TAB PO (16:58)
[2017-02-10] MEDS ORDERED: ULT50 PO (17:26)
[2017-02-10] MEDS ORDERED: ONDA4TAB10 SL (17:26)
[2017-02-10] MEDS ORDERED: FERR325T PO (17:26)
[2017-02-10] MEDS ORDERED: CLON0.5T3 PO (17:27)
[2017-02-10] MEDS ORDERED: SENN8.6T13 PO (17:28)
[2017-02-10] MEDS ORDERED: DOCU-105 PO (17:35)
[2017-02-10] MEDS ORDERED: MULTTAB58 PO (18:07)
[2017-02-10] MEDS ORDERED: LEVO50TA6 PO (18:32)
[2017-02-10] MEDS ORDERED: NORT75CA PO (18:38)
[2017-02-10] MEDS ORDERED: VST25HP PO (18:40)
[2017-02-10] MEDS ORDERED: [UNRECOGNIZED DRUG - CODE] PO (19:25)
[2017-02-10] MEDS ORDERED: MISCCAP80 PO (20:28)
[2017-02-10] MEDS ORDERED: TOPI1CAP3 PO (20:28)
[2017-02-10] MEDS ORDERED: NYST100010 TOP (20:28)
[2017-02-10] MEDS ORDERED: LITH600C PO (22:29)
[2017-02-10] MEDS ORDERED: ALBU18002 INH (22:29)
[2017-02-10] MEDS ORDERED: CGN1X PO (22:29)
[2017-02-14] MEDS ORDERED: XRL20 PO (15:35)
[2017-02-14] MEDS ORDERED: MTRG45 TOP (15:35)
[2017-02-14] MEDS ORDERED: PRT/40 PO (15:35)
[2017-02-14] MEDS ORDERED: [UNRECOGNIZED DRUG - CODE] IV (15:35)
[2017-02-14] MEDS ORDERED: POTA10CA28 PO (16:29)
[2017-02-14] MEDS ORDERED: MGNO400 PO (16:29)
== END 2016-06-26 15:55 | disposition admitted as inpatient to this hospital (09) | DRG 885 ==
LOC: ENRESERVTM → ENRESERVDT → C.EDB 13:33 → C.MHU 21:09
PROVIDERS: ADMIT Psychiatry & Neurology Child & Adolescent Psychiatry; ATTEND Psychiatry & Neurology Child & Adolescent Psychiatry
DX: F25.0 Schizoaffective disorder, bipolar type (principal); N39.0 Urinary tract infection, site not specified; R45.851 Suicidal ideations; F41.9 Anxiety disorder, unspecified; F32.9 Major depressive disorder, single episode, unspecified; G43.909 Migraine, unspecified, not intractable, without status migrainosus; N31.9 Neuromuscular dysfunction of bladder, unspecified; Q05.9 Spina bifida, unspecified; B96.5 Pseudomonas (aeruginosa) (mallei) (pseudomallei) as the cause of diseases classified elsewhere; D64.9 Anemia, unspecified; Z89.512 Acquired absence of left leg below knee; Z89.511 Acquired absence of right leg below knee; Z96.0 Presence of urogenital implants; Z98.2 Presence of cerebrospinal fluid drainage device; Z86.14 Personal history of Methicillin resistant Staphylococcus aureus infection; Z79.51 Long term (current) use of inhaled steroids; Z79.891 Long term (current) use of opiate analgesic; Z79.899 Other long term (current) drug therapy

== ENCOUNTER 2016-06-26 15:55 | Inpatient (IN) | payer BC, OTHER ==
[~2016-06-26] VITALS: Ht 119.4 cm; Wt 90.7 kg
[~2016-06-26 15:55] MED LIST changes: +ABL/5 PO; -DIPH25CA65 PO; -FLUC200T4 PO; -LEVAAER2 INH; +LTH300T PO; +VNTHFA/IN INH
[2016-06-26 16:15] VITALS: BP 129/79; PULSE 102; TEMP 36.4; O2SAT 95; O2SAT 98; Ht 119.4 cm; Wt 90.7 kg
[2016-06-26] MEDS ORDERED: ALUMINUM/MAGNESIUM/SIMETH (MAALOX MAX) 30 ML UDC PO PRN (17:30)
[2016-06-26] MEDS ORDERED: ZOLPIDEM TARTRATE 5 MG TAB PO PRN (17:30)
[2016-06-26] MEDS ORDERED: POLYETHYLENE (MIRALAX) 17 GM PACK PO PRN (17:30)
[2016-06-26] MEDS ORDERED: MAGNESIUM HYDROXIDE SUSP 30 ML UDC PO PRN (17:30)
--- NOTE | 2016-06-26 17:45 | History and Physical ---
History & Physical Date & Time of Service: Jun 26, 2016 at 17:25 Chief Complaint: Iv For Uti Infection Primary Care Physician: Darvin Lea D.O.Int.Med. History of Present Illness Source: patient, clinic records Connie Chairez is a pleasant 31-year-old female with a history of spina bifida, hydrocephalus S/P BINDERY CUTTER OPERATOR shunt with multiple revisions,also has psychiatric disorder and recently suicidal ideation. she is admitted to psych unit. complained of suprapubic pain. she said that although she has suprapubic catheter she feels burning sensation and discomfort until the urine comes out from the catheter, urine culture was sent and showed pseudomonas resistant to carbapenem/levofloxacin and cipro. she has a Port-A-Cath inserted for administration of outpatient intravenous antibiotics/meds. she also has a BINDERY CUTTER OPERATOR shunt. which all can be a nidus for seeding of any bacteria if she gets bacteremic. for that she will be transferred to medicine and treated aggressively with IV Abx Past Medical/Surgical History Medical Problems: (1) Anxiety Status: Chronic (2) Bipolar 1 disorder Status: Chronic (3) Depression Status: Chronic (4) Gastroparesis Status: Chronic (5) GERD (gastroesophageal reflux disease) Status: Chronic (6) Hydrocephalus Status: Chronic (7) MRSA (methicillin resistant Staphylococcus aureus) Status: Resolved (8) Osteomyelitis Status: Resolved (9) Spina bifida Permanent Comment: Status: Chronic Family History Cancer Diabetes mellitus Lung disease Dyslipidemia both parents thyroid disease in the mother Social History Smoking Status: Never Smoker Drug Use: none Marital Status: single Housing status: lives with family Occupational Status: unemployed, other 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 Allergies Coded Allergies: Adhesives (Verified Allergy, Intermediate, TAPE- HIVES, 06/24/16) Ceftriaxone (Verified Allergy, Intermediate, rash, 06/24/16) Chlorhexidine (Verified Allergy, Intermediate, RASH, 06/24/16) Ciprofloxacin (Unverified Allergy, Intermediate, hives, 06/24/16) Latex (Verified Allergy, Intermediate, hives, 06/24/16) Levofloxacin (Verified Allergy, Intermediate, rash, 06/24/16) Linezolid (Verified Allergy, Intermediate, rash, 06/24/16) Piperacillin (Verified Allergy, Intermediate, SEVERE RASH, HIVES, 06/24/16) Tazobactam (Verified Allergy, Intermediate, SEVERE RASH, HIVES, 06/24/16) Vancomycin (Verified Allergy, Intermediate, rash, 06/24/16) Tobramycin (Verified Allergy, Mild, MILD RASH ON ARM, RED FACE, 06/24/16) IMPROVED AFTER BENADRYL, TAKING REST OF DOSE Amikacin (Verified Allergy, Unknown, PER DR ROBINS,RXN WAS TO ZOSYN NOT AMKrash;hives, 06/24/16) Sulfamethoxazole w/Trimethoprim (Unverified Allergy, Unknown, Hives, ) Can be pretreated with 10mg Zytrec 45 min prior to admin Home Medications Scheduled Aripiprazole (Abilify), 12.5 MG PO DAILY Cholecalciferol (Vitamin D), 2,000 INTER.UNIT PO DAILY Clonazepam (Klonopin), 0.5 MG PO BID Ferrous Sulfate (Iron Supplement), 325 MG PO BIDM Fluticasone Prop/Salmeterol (Advair Diskus 500/50 60 Dose), 1 PUFF INH BID Gabapentin (Gabapentin), 300 MG PO TID Hydroxyzine Hcl (Atarax), 25 MG PO QD@1200 Hyoscyamine Sulfate (Levsin), 0.125 MG PO QID Linaclotide (Linzess), 290 MCG PO DAILY [place] Carbonate (T[place] Carbonate), 300 MG PO QAM [place] Carbonate ([place] Carbonate), 600 MG PO HS Multiple Vitamin (Multivitamin), 1 TAB PO DAILY Nortriptyline Hcl (Pamelor), 100 MG PO HS Pantoprazole (Pantoprazole Sodium), 40 MG PO QAM Ranitidine (Zantac), 150 MG PO HS Wound Dressings (Hydrofera Blue Foam Dress), 1 APPLN TOP DAILY Scheduled PRN Acetaminophen (Acetaminophen Extra Stren), 500-1,000 MG PO Q6H PRN for Pain Albuterol Hfa (Ventolin Hfa), 2 PUFFS INH Q4 PRN for Shortness of Breath Docusate Sodium (Dulcolax Stool Softener), 100 MG PO DAILY PRN for Constipation Eletriptan Hydrobromide (Relpax), 20 MG PO UD PRN for Migraine Hydroxyzine HCl (Hydroxyzine Pamoate), 25 MG PO Q8 PRN for Anxiety Ketorolac Tromethamine (Ketorolac Tromethamine), 10-20 MG PO UD PRN for Headache Meclizine HCl (Meclizine HCl), 25 MG PO Q8 PRN for Dizziness or Vertigo Nystatin (Topical) (Nystatin), 1 APPLN TOP UD PRN for Yeast Outbreaks Nystatin (Topical) (Nystop), 1 APPLN TOP UD PRN for Skin Irritation Ondansetron (Ondansetron HCl), 4 MG PO DAILY PRN for Nausea Sennosides (Senna Lax), 8.6 MG PO DAILY PRN for Constipation Tramadol (Ultram), 50 MG PO Q4H PRN for Pain Review of Systems Constitutional: No chills, No fatigue, No fever, No problem reported, No sweats , No weakness, No weight loss Eyes: No diplopia, No discharge, No eye pain, No problem reported, No redness, No worsening of vision ENT: No dental problems, No hearing loss, No nasal symptoms, No problem reported, No sore throat, No tinnitus, No trouble swallowing, No unusual epistaxis Respiratory: No cough, No dyspnea at rest, No dyspnea on exertion, No hemoptysis, No problem reported, No shortness of breath, No sputum, No wheezing Cardiovascular: No PND, No chest pain, No claudication, No edema, No orthopnea , No palpitations, No problem reported Abdomen: No GI bleeding, No constipation, No diarrhea, No nausea, No pain, No problem reported, No vomiting Musculoskeletal: No calf pain, No joint pain, No muscle pain, No problem reported, No swelling Genitourinary - Female: + dysuria Neurologic: No balance problems, No memory loss, No numbness/tingling, No paralysis, No problem reported, No vertigo, No weakness Psychiatric: + anxiety, + depression symptoms Hematologic / Lymphatic: No abnormal bleeding/bruising, No clotting problems, No night sweats, No problem reported, No swollen lymph nodes Integumentary: No bleeding, No color change, No itch, No new/changing skin lesions, No problem reported, No rash Allergic / Immunologic: No environmental allergies, No food allergies, No frequent infections, No hives, No pet sensitivities, No poor healing, No problem reported, No prolonged convalescence, No seasonal allergies Physical Exam Vital Signs Date Time Temp Pulse Resp B/P Pulse Ox O2 Delivery O2 Flow Rate FiO2 06/26/16 16:15 36.4 102 16 129/79 98 Room Air General Appearance: no apparent distress, + obese Head: normocephalic, atraumatic Eyes: normal inspection, PERRL, EOMI ENT: normal ENT inspection, hearing grossly normal Neck: supple Respiratory/Chest: chest non-tender, lungs clear, normal breath sounds, no respiratory distress, no accessory muscle use Cardiovascular: regular rate, rhythm, no edema, no gallop, no JVD, no murmur Abdomen/GI: normal bowel sounds, non tender, soft, no pulsatile mass Genitourinary - Female: + pertinent finding (supra pubic tenderness / SP arango catheter) Back: normal inspection Extremities/Musculoskelatal: normal inspection, + pertinent finding (B/L BKA) 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 order cefepime 2G /12hr (with steroids) consult ID order US R/O pyelonephritis / obstructive uropathy although clinical picture is not suggestive of that Spina Bifida / Hydrocephalus / BINDERY CUTTER OPERATOR shunt with multiple revisions and hydrocephalus. At this time, appears stable Bipolar , Anxiety, schizoaffective disorder with suicidal ideation on admission to psych unit consult psych continue her current psych meds Asthma. Continue her on her current medications / inhalers DVT : Enoxaparin 40 mg subcutaneous daily. Full code Advanced Directives Existing Advance Directive: No Existing Living Will: No Existing Power of Field Sales Engineer: No VTE Prophylaxis VTE Risk Assessment Done? Y/N: Yes Risk Level: Low
[2016-06-26] MEDS ORDERED: ALBUTEROL HFA 8 GM INHALER INH PRN (18:00)
[2016-06-26] MEDS ORDERED: NYSTATIN OINT 15 GM TUBE EXT PRN (18:00)
[2016-06-26] MEDS ORDERED: ONDANSETRON 4 MG TAB PO PRN (18:00)
[2016-06-26] MEDS ORDERED: hydrOXYzine HCL 25 MG TAB PO PRN (18:00)
[2016-06-26] MEDS: METHYLPREDNISOLONE IV 20 MG in SYRINGE 0 ML IV SCH (18:05)
[2016-06-26] MEDS: CEFEPIME IV 2,000 MG in DEXTROSE 5% 100ML 100 ML IV SCH (18:05)
[2016-06-26] MEDS: SALMETEROL INH SCH (20:31)
[2016-06-26] MEDS: FLUTICASONE INH SCH (20:31)
[2016-06-26] MEDS: NORTRIPTYLINE HCL 25 MG CAP PO SCH (20:32)
[2016-06-26] MEDS: GABAPENTIN 300 MG CAP PO SCH (20:32)
[2016-06-26] MEDS: RANITIDINE HCL 150 MG TAB PO SCH (20:32)
[2016-06-26] MEDS: HYOSCYAMINE SULFATE 0.125 MG SL TAB PO SCH (20:32)
[2016-06-26] MEDS: LITHIUM CARBONATE 300 MG TAB PO SCH (20:33)
[2016-06-26] MEDS: CLONAZEPAM 0.5 MG TAB PO SCH (20:34)
[2016-06-26] MEDS: ENOXAPARIN 40 MG/0.4 ML SYR SQ SCH (20:40)
[2016-06-26 23:25] VITALS: BP 117/76; PULSE 104; TEMP 36.6; O2SAT 94
[2016-06-26] MEDS: TRAMADOL HCL 50 MG TAB PO PRN (23:38)
[2016-06-27] MEDS: LINACLOTIDE PO SCH (06:00)
[2016-06-27] MEDS: METHYLPREDNISOLONE IV 20 MG in SYRINGE 0 ML IV SCH ×2 (06:01→17:56)
[2016-06-27] MEDS: CEFEPIME IV 2,000 MG in DEXTROSE 5% 100ML 100 ML IV SCH ×2 (06:20→18:02)
[2016-06-27] MEDS: ONDANSETRON INJ 2 MG/ML 2 ML VIAL IV PRN (06:33)
[2016-06-27 06:58] LABS: BASO % 0.2 %; BASO ABS # 0.02 K/uL (0-0.2); COMPLETE YES; EOS % 0.3 %; HEMATOCRIT 39.5 % (37-47); IG% 0.2 %; LYMPH % 20.8 %; LYMPH ABS # 2.16 K/uL (1.2-3.4); MEAN CELL VOLUME 96.8 fL (80-100); MEAN CORPUSCULAR HEMOGLOBIN 31.1 pg (25-34); MEAN CORPUSCULAR HGB CONC 32.2 g/dl (32-36); MEAN PLATELET VOLUME 10.8 fL (7.4-10.4); NEUT % 70.5 %; PLATELET COUNT 204 K/uL (130-400); RED BLOOD COUNT 4.08 M/uL (4.2-5.4); WHITE BLOOD COUNT 10.36 K/uL (4.8-10.8)
--- NOTE | 2016-06-27 07:20 | DIAGNOSTIC IMAGING REPORT ---
RENAL ULTRASOUND HISTORY: Urinary tract infection. Assess for pyelonephritis. COMPARISON: Abdomen and pelvis CT 04/19/2016. FINDINGS: Right kidney: 8.5 cm. No hydronephrosis. Normal corticomedullary differentiation and cortical thickness. Left kidney: 9.7 cm. No hydronephrosis. Normal corticomedullary differentiation and mild cortical thinning/lobulation. Bladder: Not visualized due to the suprapubic bandage and Meade catheter. IMPRESSION: No significant change compared to the prior CT examination. No hydronephrosis. The bladder was not visualized. Electronically signed by: Edward Dixon M.D. 06/27/2016 7:18 AM Dictated Date/Time: 06/27/2016 7:16 AM
[2016-06-27 07:29] LABS: CREATININE 0.79 mg/dl (0.60-1.20); MAGNESIUM 2.3 mg/dl (1.8-2.4); POTASSIUM 3.4 mmol/L (3.5-5.1)
[2016-06-27 07:33] LABS: ALB/GLOB RATIO 0.8 (0.9-2)
[2016-06-27 07:34] VITALS: BP 128/70; PULSE 94; TEMP 36.6; O2SAT 96
[2016-06-27 08:11] LABS: ESTIMATED AVERAGE GLUCOSE 85 mg/dl; HA1C FLAG Normal (Normal)
[2016-06-27] MEDS ORDERED: WOUND DRESSINGS TOP SCH (09:00)
[2016-06-27] MEDS: FLUTICASONE INH SCH ×2 (09:09→20:40)
[2016-06-27] MEDS: SALMETEROL INH SCH ×2 (09:09→20:40)
[2016-06-27] MEDS: GABAPENTIN 300 MG CAP PO SCH ×3 (09:10→20:43)
[2016-06-27] MEDS: CLONAZEPAM 0.5 MG TAB PO SCH ×2 (09:10→20:50)
[2016-06-27] MEDS: FERROUS SULFATE 325 MG TAB PO SCH ×2 (09:11→17:57)
[2016-06-27] MEDS: ARIPIprazole TAB 5 MG TAB PO SCH (09:12)
[2016-06-27] MEDS: MULTIVITAMIN TAB PO SCH (09:12)
[2016-06-27] MEDS: CHOLECALCIFEROL 1000 INTER.UNIT TAB PO SCH (09:13)
[2016-06-27] MEDS: HYOSCYAMINE SULFATE 0.125 MG SL TAB PO SCH ×4 (09:13→20:42)
[2016-06-27] MEDS: LITHIUM CARBONATE 300 MG TAB PO SCH ×2 (09:14→20:41)
[2016-06-27] MEDS: PANTOprazole SOD 40 MG TAB PO SCH (09:14)
--- NOTE | 2016-06-27 09:37 | Psychiatric Consultation ---
Psychiatric Consultation Date of Service: Jun 27, 2016. Patient seen. MS assessed. Full consult dictated. Continue current psych meds. Will need to return to inpatient [facility] when medically able as ongoing SI and command holm.
--- NOTE | 2016-06-27 09:56 | Medical Consult ---
Consultation Date of Consultation: Jun 27, 2016. Attending Physician: Mamta Tracy DO Reason for Consultation: Complicated urinary tract infection History of Present Illness Hospital notes, including recent hospitalization on psychiatry unit, as well as previous infectious disease consultations, reviewed for this consultation. 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 She was found to have positive urine culture for quinolone resistant Pseudomonas aeruginosa, and is complaining of bladder discomfort which has associated in the past with urinary tract infections. She has not had any significant fever, flank pain, or chills. Renal ultrasound, read by me, shows no evidence of hydronephrosis or other abnormalities. She has been started on cefepime despite history of allergy to ceftriaxone, and she is tolerating this without apparent difficulty. Past Medical/Surgical History Medical Problems: (1) Acute pyelonephritis Status: Acute (2) Allergic reaction Status: Acute (3) Allergic reaction Status: Acute (4) Complicated urinary tract infection Status: Acute (5) Gabapentin overdose Status: Acute (6) Intractable headache Status: Acute (7) Low back pain Status: Acute (8) Lower abdominal pain Status: Acute (9) Nausea Status: Acute (10) Right flank pain Status: Acute (11) Right leg pain Status: Acute (12) Self-harming behavior Status: Acute (13) Shunt malfunction Status: Acute (14) Shunt malfunction Status: Acute (15) Suicidal ideation Status: Acute (16) Suicidal ideation Status: Acute (17) Suprapubic pain Status: Acute (18) Urinary tract infection Status: Acute (19) UTI (urinary tract infection) Status: Acute (20) UTI (urinary tract infection) Status: Acute Medical Problems: (1) Allergic reaction caused by a drug (2) Anxiety (3) Bipolar 1 disorder (4) Depression (5) Gastroparesis (6) GERD (gastroesophageal reflux disease) (7) Hydrocephalus (8) Intractable headache (9) Migraines (10) MRSA (methicillin resistant Staphylococcus aureus) (11) Osteomyelitis (12) Shunt placement with revision x8 (13) Spina bifida (14) UTI (urinary tract infection) Surgical Problems: (1) S/P BKA (below knee amputation) bilateral Family History Cancer Diabetes mellitus Lung disease Social History Smoking Status: Never Smoker Drug Use: none Marital Status: single Housing Status: lives with family Occupation Status: unemployed, other Allergies Coded Allergies: Adhesives (Verified Allergy, Intermediate, TAPE- HIVES, 06/24/16) Ceftriaxone (Verified Allergy, Intermediate, rash, 06/24/16) Chlorhexidine (Verified Allergy, Intermediate, RASH, 06/24/16) Ciprofloxacin (Unverified Allergy, Intermediate, hives, 06/24/16) Latex (Verified Allergy, Intermediate, hives, 06/24/16) Levofloxacin (Verified Allergy, Intermediate, rash, 06/24/16) Linezolid (Verified Allergy, Intermediate, rash, 06/24/16) Piperacillin (Verified Allergy, Intermediate, SEVERE RASH, HIVES, 06/24/16) Tazobactam (Verified Allergy, Intermediate, SEVERE RASH, HIVES, 06/24/16) Vancomycin (Verified Allergy, Intermediate, rash, 06/24/16) Tobramycin (Verified Allergy, Mild, MILD RASH ON ARM, RED FACE, 06/24/16) IMPROVED AFTER BENADRYL, TAKING REST OF DOSE Amikacin (Verified Allergy, Unknown, PER DR ROBINS,RXN WAS TO ZOSYN NOT AMKrash;hives, 06/24/16) Sulfamethoxazole w/Trimethoprim (Unverified Allergy, Unknown, Hives, ) Can be pretreated with 10mg Zytrec 45 min prior to admin Current Inpatient Medications Current Inpatient Medications Medications (Trade) Dose Ordered Sig/Brenna Route Start Time Stop Time Status Last Admin Dose Admin Enoxaparin Sodium (Lovenox Inj) 40 mg Q24H SQ 06/26/16 21:00 07/26/16 20:59 Acetaminophen (Tylenol Tab) 650 mg Q4H PRN PO 06/26/16 17:30 07/26/16 17:29 Al Hydrox/Mg Hydrox/Simethicone (Maalox Max Susp) 15 ml Q4H PRN PO 06/26/16 17:30 07/26/16 17:29 Magnesium Hydroxide (Milk Of Magnesia Susp) 30 ml Q6H PRN PO 06/26/16 17:30 07/26/16 17:29 Polyethylene (Miralax Powder Packet) 17 gm DAILY PRN PO 06/26/16 17:30 2/21/17 17:29 Zolpidem Tartrate (Ambien Tab) 5 mg HSZ PRN PO 06/26/16 17:30 07/26/16 17:29 Ondansetron HCl 4 mg 4 mg Q6H PRN IV 06/26/16 17:30 07/26/16 17:29 06/27/16 06:33 4 MG Cefepime HCl 2000 mg/Dextrose 112.5 ml @ 200 mls/hr Q12@0600,1800 IV 06/26/16 18:00 07/06/16 17:59 06/27/16 06:20 200 MLS/HR Methylprednisolone Sodium Succinate/ Syringe (Solu-Medrol IV/ Syringe) 0.32 ml @ 1.5 mls/min Q12@0540,1740 IV 06/26/16 17:40 07/26/16 17:39 06/27/16 06:01 1.5 MLS/MIN Albuterol (Ventolin Hfa Inhaler) 2 puffs Q4 PRN INH 06/26/16 18:00 07/26/16 17:59 Aripiprazole (Abilify Tab) 12.5 mg DAILY PO 06/27/16 09:00 07/27/16 08:59 06/27/16 09:12 12.5 MG Clonazepam (Klonopin Tab) 0.5 mg BID PO 06/26/16 21:00 07/26/16 20:59 06/27/16 09:10 0.5 MG Salmeterol Xinafoate/ Fluticasone (Advair Diskus 500/50 Inh) 1 puff BID INH 06/26/16 21:00 07/26/16 20:59 06/27/16 09:09 1 PUFF Gabapentin (Neurontin Cap) 300 mg TID PO 06/26/16 21:00 07/26/16 20:59 06/27/16 09:10 300 MG Hydroxyzine HCl (Vistaril Tab) 25 mg QD@1200 PO 06/27/16 12:00 07/27/16 11:59 Hyoscyamine Sulfate (Levsin Tab) 0.125 mg QID PO 06/26/16 21:00 07/26/16 20:59 06/27/16 09:13 0.125 MG Riner Carbonate (Riner Carbonate Tab) 300 mg QAM PO 06/27/16 09:00 07/27/16 08:59 06/27/16 09:14 300 MG Riner Carbonate (Riner Carbonate Tab) 600 mg HS PO 06/26/16 21:00 07/26/16 20:59 06/26/16 20:33 600 MG Meclizine HCl (Antivert Tab) 25 mg Q8 PRN PO 06/26/16 18:00 07/26/16 17:59 Multivitamins (Multivitamin Tab) 1 tab DAILY PO 06/27/16 09:00 07/27/16 08:59 06/27/16 09:12 1 TAB Nortriptyline HCl (Pamelor Cap) 100 mg HS PO 06/26/16 21:00 07/26/16 20:59 06/26/16 20:32 100 MG Nystatin (Mycostatin Oint) 1 appln UD PRN EXT 06/26/16 18:00 07/26/16 17:59 Nystatin (Mycostatin Powder) 1 appln UD PRN EXT 06/26/16 18:00 07/26/16 17:59 Ondansetron HCl (Zofran Tab) 4 mg DAILY PRN PO 06/26/16 18:00 07/26/16 17:59 Pantoprazole Sodium (Protonix Tab) 40 mg QAM PO 06/27/16 09:00 07/27/16 08:59 06/27/16 09:14 40 MG Ranitidine HCl (zANTac TAB) 150 mg HS PO 06/26/16 21:00 07/26/16 20:59 06/26/16 20:32 150 MG Senna (Senokot Tab) 8.6 mg DAILY PRN PO 06/26/16 18:00 07/26/16 17:59 Tramadol HCl (Ultram Tab) 50 mg Q4H PRN PO 06/26/16 18:00 07/26/16 17:59 06/26/16 23:38 50 MG Cholecalciferol (Vitamin D Tab) 2,000 inter.unit DAILY PO 06/27/16 09:00 07/27/16 08:59 06/27/16 09:13 2,000 INTER.UNIT Ferrous Sulfate (Feosol Tab) 325 mg BIDM PO 06/27/16 08:30 07/27/16 08:29 06/27/16 09:11 325 MG Hydroxyzine HCl (Vistaril Tab) 25 mg Q8 PRN PO 06/26/16 18:00 07/26/16 17:59 Linaclotide (Linzess) 290 mcg DAILYBB PO 06/27/16 06:00 07/27/16 05:59 06/27/16 06:00 290 MCG Heparin Sodium (Porcine) (Heparin 100 Unit/ml 5ml Flush) 5 ml PRN PRN IV 06/26/16 18:15 07/26/16 18:14 06/27/16 08:38 5 ML Review of Systems All systems were reviewed and are negative except as per HPI Physical Exam Date Time Temp Pulse Resp B/P Pulse Ox O2 Delivery O2 Flow Rate FiO2 06/27/16 07:43 Room Air 06/27/16 07:34 36.6 94 16 128/70 96 Room Air 06/26/16 23:30 Room Air 06/26/16 23:25 36.6 104 16 117/76 94 Room Air 06/26/16 16:15 36.4 102 16 129/79 98 Room Air 06/26/16 16:15 95 Room Air 06/26/16 16:15 Room Air General Appearance: WD/WN, no apparent distress, + obese Head: normocephalic, atraumatic Eyes: normal inspection, EOMI, sclerae normal ENT: normal ENT inspection, hearing grossly normal, pharynx normal Neck: supple, no adenopathy, thyroid normal, trachea midline Respiratory/Chest: chest non-tender, lungs clear, normal breath sounds, no respiratory distress Cardiovascular: regular rate, rhythm, no gallop, no murmur Abdomen/GI: normal bowel sounds, non tender, soft, no organomegaly Back: normal inspection, no CVA tenderness Extremities/Musculoskelatal: no calf tenderness, normal capillary refill Neurologic/Psych: alert, oriented x 3, + pertinent finding (Paraplegic) Skin: normal color, warm/dry, no rash Lymphatic: no adenopathy Laboratory Results RUN DATE: 06/26/16 [facility] LAB PAGE 1 RUN TIME: 914 Specimen Inquiry PATIENT: LUCERO BERRIOS [facility] [place] # : [id number] AGE/SX: 31/F ROOM: S327 REG : 06/24/[address]: Irina Colon M.D. : 1985 BED: 2 DIS : STATUS: ADM IN TLOC: SPEC #: [id number] AUGUSTUS: 06/24/16 STATUS: COMP REQ #: [id number] RECD: 06/24/[address]: Devin Martinez M.D. SOURCE: URINE CATH ENTR: 06/24/16-152 [facility] [address]: Darvin Lea D.OMikeInt.Med. SPDES: ORDERED: CULTURE UR CATH Procedure Result Verified Site URINE CULTURE Final 06/26/16-15 Organism 1 PSEUDOMONAS AERUGINOSA COLONY COUNT >100,000 CFU/ml SENS SENSITIVITY TO FOLLOW 1. PSEUDOMONAS AERUGINOSA Target Route Dose RX AB Cost M.I.C. IQ ------ ----- ------ -- ------ -------- - ------ CEFTAZIDIME S 4 CEFEPIME S 8 IMIPENEM R >8 AZTREONAM I 16 GENTAMICIN S <=4 TOBRAMYCIN S <=4 AMIKACIN S <=16 CIPROFLOXACIN R >2 LEVOFLOXACIN R >4 PIP/TAZO S <=16 S = SENSITIVE I = INTERMEDIATE R = RESISTANT Last 24 Hours Test 06/27/16 06:05 White Blood Count 10.36 K/uL Red Blood Count 4.08 M/uL Hemoglobin 12.7 g/dL Hematocrit 39.5 % Mean Corpuscular Volume 96.8 fL Mean Corpuscular Hemoglobin 31.1 pg Mean Corpuscular Hemoglobin Concent 32.2 g/dl Platelet Count 204 K/uL Mean Platelet Volume 10.8 fL Neutrophils (%) (Auto) 70.5 % Lymphocytes (%) (Auto) 20.8 % Monocytes (%) (Auto) 8.0 % Eosinophils (%) (Auto) 0.3 % Basophils (%) (Auto) 0.2 % Neutrophils # (Auto) 7.30 K/uL Lymphocytes # (Auto) 2.16 K/uL Monocytes # (Auto) 0.83 K/uL Eosinophils # (Auto) 0.03 K/uL Basophils # (Auto) 0.02 K/uL RDW Standard Deviation 52.8 fL RDW Coefficient of Variation 14.8 % Immature Granulocyte % (Auto) 0.2 % Immature Granulocyte # (Auto) 0.02 K/uL Sodium Level 143 mmol/L Potassium Level 3.4 mmol/L Chloride Level 109 mmol/L Carbon Dioxide Level 21 mmol/L Anion Gap 13.0 mmol/L Blood Urea Nitrogen 7 mg/dl Creatinine 0.79 mg/dl Est Creatinine Clear Calc Drug Dose 75.7 ml/min Estimated GFR () 117.2 Estimated GFR (Non- 101.2 BUN/Creatinine Ratio 9.0 Random Glucose 100 mg/dl Estimated Average Glucose 85 mg/dl Hemoglobin A1c 4.6 % Calcium Level 9.0 mg/dl Magnesium Level 2.3 mg/dl Total Bilirubin 0.2 mg/dl Aspartate Amino Transf (AST/SGOT) 10 U/L Alanine Aminotransferase (ALT/SGPT) 21 U/L Alkaline Phosphatase 92 U/L Total Protein 7.0 gm/dl Albumin 3.1 gm/dl Globulin 3.9 gm/dl Albumin/Globulin Ratio 0.8 Patient Name: LUCERO BERRIOS Unit Number: [id number] Dictated: 06/27/16715 Transcribed: 06/27/16715 [facility] Printed Date/Time: [~ rep prt dt]/[~ rep prt tm] [~ rep ct labl] - [~ rep ct ivnm] [facility] [place] [address] Dictated: 06/27/16715 Transcribed: 06/27/16715 [facility] Printed Date/Time: [~ rep prt dt]/[~ rep prt tm] [~ rep ct labl] - [~ rep ct ivnm] Endcc: [~ rep ct add3]] RENAL ULTRASOUND HISTORY: Urinary tract infection. Assess for pyelonephritis. COMPARISON: Abdomen and pelvis CT 04/19/2016. FINDINGS: Right kidney: 8.5 cm. No hydronephrosis. Normal corticomedullary differentiation and cortical thickness. Left kidney: 9.7 cm. No hydronephrosis. Normal corticomedullary differentiation and mild cortical thinning/lobulation. Bladder: Not visualized due to the suprapubic bandage and Meade catheter. IMPRESSION: No significant change compared to the prior CT examination. No hydronephrosis. The bladder was not visualized. Electronically signed by: Edward Dixon M.D. 06/27/2016 7:18 AM Dictated Date/Time: 06/27/2016 7:16 AM The status of this report is Signed. Draft = Not yet reviewed or approved by Radiologist. Signed = Reviewed and approved by Radiologist. <AttendingPhy>Josephine Glover MD</AttendingPhy> <FamilyPhy>Dmitry Goode M.D.</FamilyPhy> <PrimaryPhy>Darvin Lea D.O.Int.Med.</ PrimaryPhy> <UnitNumber>[id number]</UnitNumber> <VisitNumber>[id number]</ VisitNumber> <PatientName>LUCERO BERRIOS</PatientName> <DateOfBirth>1985</ DateOfBirth> <Location>C.MSN</Location> <ServiceDate></ServiceDate> <MNE>ESINDI< /MNE> <OrderingPhy>Josephine Glover MD</OrderingPhy> <OrderingPhyMNE>f rep ord dr multani</OrderingPhyMNE> <DictatingPhyMNE>f rep dict dr multani</ DictatingPhyMNE> <CCListMNE>f rep ct rangel</CCListMNE> <AdmittingPhyMNE>f pt admit dr multani</AdmittingPhyMNE> <AttendingPhyMNE>f pt attend dr multani</ AttendingPhyMNE> <ConsultingPhyMNE>f pt consult dr multani</ConsultingPhyMNE> <FamilyPhyMNE>f pt fam dr multani</FamilyPhyMNE> <OtherPhyMNE>f pt other dr multani</OtherPhyMNE> < PrimaryPhyMNE>f pt prim care dr multani</PrimaryPhyMNE> <ReferringPhyMNE>f pt referring dr multani</ReferringPhyMNE> Assessment & Plan 31-year-old female with spina bifida and paraplegia with history of recurrent urinary tract infections, now with another urinary tract infection with relatively resistant Pseudomonas aeruginosa. Appears to be tolerating cefepime well, and based on KAREEN data this should be appropriate. Recommend 7 days of treatment. We will follow.
--- NOTE | 2016-06-27 10:29 | PSYCHIATRIC CONSULTATION ---
DATE OF CONSULTATION: 06/27/2016 IDENTIFYING DATA: Connie Chairez is a 31-year-old female from [place] who was initially admitted to the behavioral health unit on 06/24/2016 on a 201 voluntary commitment for severe depression, hallucinations with auditory commands to harm herself. CHIEF COMPLAINT: "I still don't feel great." HISTORY OF PRESENT ILLNESS: Connie Chairez has below the knee amputations bilaterally, spinal bifida, normal pressure hydrocephalus, who is well known to our service for diagnosis of schizoaffective disorder, bipolar type with an anxiety. Prior to her current hospitalization, she was last hospitalized in July of 2015, and continues to follow as an outpatient with Dr. Cartagena at [facility]. She was doing well until May when her dog was diagnosed with cancer and had to be euthanized. She has been having increasing conflict with her mother at home. In that context she has been hearing voices that are increasingly destructive. Several days prior to admission voices were telling her to cut herself. She currently states she hears up to 11 different voices, sometimes they are all talking at once. She says this while smiling and continuing to report suicidal ideation. She is able to use cognitive stop techniques. She denies any intent to harm herself in the hospital. Additional labs upon admission included a urine culture which showed pseudomonas requiring IV antibiotics, which cannot be done on the inpatient mental health unit, and she was transferred to the medical floor yesterday afternoon. PAST PSYCHIATRIC HISTORY: Again outpatient psychiatrist is Sandra Armijo at [facility] is her therapist. Her spring encaser is Shashi Culp. She has had previous inpatient stays on the [facility] mental health unit. She has a history of 1 suicide attempt in the past by overdose. Prior medication trials include, but are not limited to, Prozac, Zoloft, Lexapro, Cymbalta, Risperdal, Seroquel and Geodon. She has previously been tried on higher doses of Abilify and experienced some side effects. She has been in general tolerating lithium well. ACCESS TO GUNS: Denied. ALLERGIES: EXTENSIVE, SEE EMR. PAST MEDICAL HISTORY: As above. 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 She has no history of cardiac issues, seizures or head injury. SOCIAL HISTORY: Nonsmoker. FAMILY HISTORY: No formal diagnosis. She does feel her brothers abuse alcohol. SUBSTANCE ABUSE HISTORY: She denies alcohol use in the last year. No marijuana use for at least 3 years. PERSONAL HISTORY: The patient was born in [facility], relocated to [place] 1-2 years ago. Her mother was always stayed home with her and is her primary caregiver. She is a high school graduate. 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 She has never been . Has no children. She is Synagogue. There are no legal concerns. She previously reported a [facility] she was 7 years old. MENTAL STATUS EXAMINATION: Connie remains alert and cooperative. Her eye contact is good. No psychomotor restlessness is noted. Speech is normal in rate and volume. Affect is broad. She describes her mood as depressed. Thought processes are organized and goal directed. She endorses both auditory and visual hallucinations, but did not appear to be responding to internal stimuli. She continues to endorse suicidal thoughts. No plan on the medical floor or intents. She is fully oriented. Memory seems grossly intact. Fund of knowledge is consistent with education. Insight and judgment are limited. REVIEW OF SYSTEMS: The patient continues to have suprapubic pain, as well as back pain which she attributes to her kidneys. Otherwise, she is eating and drinking, sleeping okay. She did wake up around 4:00 a.m. with a panic attack. IMPRESSION: Connie Chairez is a 31-year-old female with schizoaffective disorder, who was transferred from the behavioral health unit for IV antibiotics for pseudomonas urinary tract infection. The patient at significant risk given ventriculoperitoneal shunt. PLAN: The patient's Abilify was just increased prior to her transfer to the medical floor. As far as her psychiatric medications, she should continue Abilify 12.5 mg p.o. daily, lithium 300 mg p.o. q.a.m. and 600 mg p.o. q. h.s., with Vistaril 25 mg daily around noon, as well as q. 8 hours p.r.n. anxiety. The patient will need to continue inpatient psychiatric hospitalization when medically cleared. I do not see immediate need for 1 on 1 on the floor, as she is very cooperative with care and is able to safety plan within the structured setting of the hospital. JAVY
[2016-06-27] MEDS: TRAMADOL HCL 50 MG TAB PO PRN ×3 (10:51→16:51)
[2016-06-27] MEDS: hydrOXYzine HCL 25 MG TAB PO SCH (13:00)
[2016-06-27] MEDS ORDERED: NURSING VERBAL MED ORDER ONE (13:00)
--- NOTE | 2016-06-27 13:15 | Progress Note ---
Subjective Date of Service: Jun 27, 2016. Subjective Pt evaluation today including: conversation w/ patient Pt has not noted much improvement in her pelvic pain/burning. She was able to tolerate a diet earlier with only nausea, no emesis. Pt denies fever, SOB, chest pain, c/d, LE pain or swelling. ROS as noted above, otherwise neg. Nursing called regarding pain medications. Pt is on home dose of tramadol and does not feel this is helping her pelvic pain. Problem List Medical Problems: (1) Acute pyelonephritis Status: Acute (2) Allergic reaction Status: Acute (3) Allergic reaction Status: Acute (4) Complicated urinary tract infection Status: Acute (5) Gabapentin overdose Status: Acute (6) Intractable headache Status: Acute (7) Low back pain Status: Acute (8) Lower abdominal pain Status: Acute (9) Nausea Status: Acute (10) Right flank pain Status: Acute (11) Right leg pain Status: Acute (12) Self-harming behavior Status: Acute (13) Shunt malfunction Status: Acute (14) Shunt malfunction Status: Acute (15) Suicidal ideation Status: Acute (16) Suicidal ideation Status: Acute (17) Suprapubic pain Status: Acute (18) Urinary tract infection Status: Acute (19) UTI (urinary tract infection) Status: Acute (20) UTI (urinary tract infection) Status: Acute Objective Vital Signs Date Time Temp Pulse Resp B/P Pulse Ox O2 Delivery O2 Flow Rate FiO2 06/27/16 07:43 Room Air 06/27/16 07:34 36.6 94 16 128/70 96 Room Air 06/26/16 23:30 Room Air 06/26/16 23:25 36.6 104 16 117/76 94 Room Air 06/26/16 16:15 36.4 102 16 129/79 98 Room Air 06/26/16 16:15 95 Room Air 06/26/16 16:15 Room Air Physical Exam General Appearance: no apparent distress, + obese Respiratory/Chest: normal breath sounds, no respiratory distress Cardiovascular: regular rate, rhythm, no edema Abdomen: non tender, soft Extremities: non-tender, no pedal edema Neurologic/Psychiatric: alert, oriented x 3 Skin: normal color, warm/dry Laboratory Results Last 24 Hours Test 06/27/16 06:05 White Blood Count 10.36 K/uL Red Blood Count 4.08 M/uL Hemoglobin 12.7 g/dL Hematocrit 39.5 % Mean Corpuscular Volume 96.8 fL Mean Corpuscular Hemoglobin 31.1 pg Mean Corpuscular Hemoglobin Concent 32.2 g/dl Platelet Count 204 K/uL Mean Platelet Volume 10.8 fL Neutrophils (%) (Auto) 70.5 % Lymphocytes (%) (Auto) 20.8 % Monocytes (%) (Auto) 8.0 % Eosinophils (%) (Auto) 0.3 % Basophils (%) (Auto) 0.2 % Neutrophils # (Auto) 7.30 K/uL Lymphocytes # (Auto) 2.16 K/uL Monocytes # (Auto) 0.83 K/uL Eosinophils # (Auto) 0.03 K/uL Basophils # (Auto) 0.02 K/uL RDW Standard Deviation 52.8 fL RDW Coefficient of Variation 14.8 % Immature Granulocyte % (Auto) 0.2 % Immature Granulocyte # (Auto) 0.02 K/uL Sodium Level 143 mmol/L Potassium Level 3.4 mmol/L Chloride Level 109 mmol/L Carbon Dioxide Level 21 mmol/L Anion Gap 13.0 mmol/L Blood Urea Nitrogen 7 mg/dl Creatinine 0.79 mg/dl Est Creatinine Clear Calc Drug Dose 75.7 ml/min Estimated GFR () 117.2 Estimated GFR (Non- 101.2 BUN/Creatinine Ratio 9.0 Random Glucose 100 mg/dl Estimated Average Glucose 85 mg/dl Hemoglobin A1c 4.6 % Calcium Level 9.0 mg/dl Magnesium Level 2.3 mg/dl Total Bilirubin 0.2 mg/dl Aspartate Amino Transf (AST/SGOT) 10 U/L Alanine Aminotransferase (ALT/SGPT) 21 U/L Alkaline Phosphatase 92 U/L Total Protein 7.0 gm/dl Albumin 3.1 gm/dl Globulin 3.9 gm/dl Albumin/Globulin Ratio 0.8 Assessment and Plan 31 y/o F with Spina bifida, chronic suprapubic cath transferred from psych unit as she was found to have pseudomonal UTI complicated UTI POA reported that her allergy to cephalosporin is only mild itch and she tolerated cephalosporin in the past when premedicated with steroid prior to admin order cefepime 2G /12hr (with steroids) Renal US WNL ID c/s noted, planning for cefepime x7 days Spina Bifida / Hydrocephalus / 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 At this time, appears stable Bipolar , Anxiety, schizoaffective disorder with suicidal ideation on admission to psych unit Psych c/s noted, planning for care on psych unit once medically stable continue her current psych meds Asthma. Continue her on her current medications / inhalers DVT : Enoxaparin 40 mg subcutaneous daily. Full code
[2016-06-27 15:38] VITALS: BP 137/75; PULSE 110; TEMP 36.4; O2SAT 95
[2016-06-27] MEDS: NORTRIPTYLINE HCL 25 MG CAP PO SCH (20:40)
[2016-06-27] MEDS: RANITIDINE HCL 150 MG TAB PO SCH (20:43)
[2016-06-27] MEDS: ENOXAPARIN 40 MG/0.4 ML SYR SQ SCH (20:47)
[2016-06-27 22:53] VITALS: BP 108/65; PULSE 101; TEMP 36.7; O2SAT 93
[2016-06-28] MEDS: ONDANSETRON INJ 2 MG/ML 2 ML VIAL IV PRN ×2 (03:57→14:27)
[2016-06-28] MEDS: LINACLOTIDE PO SCH (05:47)
[2016-06-28] MEDS: CEFEPIME IV 2,000 MG in DEXTROSE 5% 100ML 100 ML IV SCH ×3 (05:48→18:03)
[2016-06-28] MEDS: METHYLPREDNISOLONE IV 20 MG in SYRINGE 0 ML IV SCH ×2 (05:52→18:19)
[2016-06-28 07:09] VITALS: BP 134/75; PULSE 71; TEMP 36.5; O2SAT 93
[2016-06-28] MEDS: TRAMADOL HCL 50 MG TAB PO PRN ×2 (07:47→16:27)
[2016-06-28] MEDS: MULTIVITAMIN TAB PO SCH (07:56)
[2016-06-28] MEDS: FERROUS SULFATE 325 MG TAB PO SCH ×2 (07:59→18:03)
[2016-06-28 08:00] VITALS: O2SAT 93
[2016-06-28] MEDS: SALMETEROL INH SCH ×2 (08:01→20:51)
[2016-06-28] MEDS: ARIPIprazole TAB 5 MG TAB PO SCH (08:01)
[2016-06-28] MEDS: FLUTICASONE INH SCH ×2 (08:01→20:51)
[2016-06-28] MEDS: CLONAZEPAM 0.5 MG TAB PO SCH ×2 (08:03→20:58)
[2016-06-28] MEDS: HYOSCYAMINE SULFATE 0.125 MG SL TAB PO SCH ×4 (08:04→20:54)
[2016-06-28] MEDS: GABAPENTIN 300 MG CAP PO SCH ×3 (08:05→20:55)
[2016-06-28] MEDS: LITHIUM CARBONATE 300 MG TAB PO SCH ×2 (08:05→20:54)
[2016-06-28] MEDS: PANTOprazole SOD 40 MG TAB PO SCH (08:06)
[2016-06-28] MEDS: CHOLECALCIFEROL 1000 INTER.UNIT TAB PO SCH (08:06)
[2016-06-28 08:38] VITALS: O2SAT 92
[2016-06-28 08:40] VITALS: BP 129/77; PULSE 96; TEMP 36.5; O2SAT 92
--- NOTE | 2016-06-28 10:00 | Infectious Disease Progress Nt ---
Progress Note Date of Service Jun 28, 2016. Subjective Pt evaluation today including: conversation w/ patient, physical exam, chart review, lab review, review of studies, conversation w/ cruise consultant, review of inpatient medication list Patient states she has pain in her kidneys, abdomen, and bladder. Remains afebrile. No problems with antibiotics as of yet. No other new complaints. All Other Systems: Reviewed and Negative Medications Current Inpatient Medications Medications (Trade) Dose Ordered Sig/Brenna Route Start Time Stop Time Status Last Admin Dose Admin Enoxaparin Sodium (Lovenox Inj) 40 mg Q24H SQ 06/26/16 21:00 07/26/16 20:59 Acetaminophen (Tylenol Tab) 650 mg Q4H PRN PO 06/26/16 17:30 07/26/16 17:29 Al Hydrox/Mg Hydrox/Simethicone (Maalox Max Susp) 15 ml Q4H PRN PO 06/26/16 17:30 07/26/16 17:29 Magnesium Hydroxide (Milk Of Magnesia Susp) 30 ml Q6H PRN PO 06/26/16 17:30 07/26/16 17:29 Polyethylene (Miralax Powder Packet) 17 gm DAILY PRN PO 06/26/16 17:30 07/26/16 17:29 Zolpidem Tartrate (Ambien Tab) 5 mg HSZ PRN PO 06/26/16 17:30 07/26/16 17:29 Ondansetron HCl 4 mg 4 mg Q6H PRN IV 06/26/16 17:30 07/26/16 17:29 06/28/16 03:57 4 MG Cefepime HCl 2000 mg/Dextrose 112.5 ml @ 200 mls/hr Q12@0600,1800 IV 06/26/16 18:00 07/06/16 17:59 06/28/16 05:57 200 MLS/HR Methylprednisolone Sodium Succinate/ Syringe (Solu-Medrol IV/ Syringe) 0.32 ml @ 1.5 mls/min Q12@0540,1740 IV 06/26/16 17:40 07/26/16 17:39 06/28/16 05:52 1.5 MLS/MIN Albuterol (Ventolin Hfa Inhaler) 2 puffs Q4 PRN INH 06/26/16 18:00 07/26/16 17:59 Aripiprazole (Abilify Tab) 12.5 mg DAILY PO 06/27/16 09:00 07/27/16 08:59 06/28/16 08:01 12.5 MG Clonazepam (Klonopin Tab) 0.5 mg BID PO 06/26/16 21:00 07/26/16 20:59 06/28/16 08:03 0.5 MG Salmeterol Xinafoate/ Fluticasone (Advair Diskus 500/50 Inh) 1 puff BID INH 06/26/16 21:00 07/26/16 20:59 06/28/16 08:01 1 PUFF Gabapentin (Neurontin Cap) 300 mg TID PO 06/26/16 21:00 07/26/16 20:59 06/28/16 08:05 300 MG Hydroxyzine HCl (Vistaril Tab) 25 mg QD@1200 PO 06/27/16 12:00 07/27/16 11:59 06/27/16 13:00 25 MG Hyoscyamine Sulfate (Levsin Tab) 0.125 mg QID PO 06/26/16 21:00 07/26/16 20:59 06/28/16 08:04 0.125 MG [place] Carbonate (Light Oak Carbonate Tab) 300 mg QAM PO 06/27/16 09:00 07/27/16 08:59 06/28/16 08:05 300 MG [place] Carbonate ([place] Carbonate Tab) 600 mg HS PO 06/26/16 21:00 07/26/16 20:59 06/27/16 20:41 600 MG Meclizine HCl (Antivert Tab) 25 mg Q8 PRN PO 06/26/16 18:00 07/26/16 17:59 Multivitamins (Multivitamin Tab) 1 tab DAILY PO 06/27/16 09:00 07/27/16 08:59 06/28/16 07:56 1 TAB Nortriptyline HCl (Pamelor Cap) 100 mg HS PO 06/26/16 21:00 07/26/16 20:59 06/27/16 20:40 100 MG Nystatin (Mycostatin Oint) 1 appln UD PRN EXT 06/26/16 18:00 07/26/16 17:59 Nystatin (Mycostatin Powder) 1 appln UD PRN EXT 06/26/16 18:00 07/26/16 17:59 Ondansetron HCl (Zofran Tab) 4 mg DAILY PRN PO 06/26/16 18:00 07/26/16 17:59 Pantoprazole Sodium (Protonix Tab) 40 mg QAM PO 06/27/16 09:00 07/27/16 08:59 06/28/16 08:06 40 MG Ranitidine HCl (zANTac TAB) 150 mg HS PO 06/26/16 21:00 07/26/16 20:59 06/27/16 20:43 150 MG Senna (Senokot Tab) 8.6 mg DAILY PRN PO 06/26/16 18:00 07/26/16 17:59 Tramadol HCl (Ultram Tab) 50 mg Q4H PRN PO 06/26/16 18:00 07/26/16 17:59 06/27/16 13:00 50 MG Cholecalciferol (Vitamin D Tab) 2,000 inter.unit DAILY PO 06/27/16 09:00 07/27/16 08:59 06/28/16 08:06 2,000 INTER.UNIT Ferrous Sulfate (Feosol Tab) 325 mg BIDM PO 06/27/16 08:30 07/27/16 08:29 06/28/16 07:59 325 MG Hydroxyzine HCl (Vistaril Tab) 25 mg Q8 PRN PO 06/26/16 18:00 07/26/16 17:59 Linaclotide (Linzess) 290 mcg DAILYBB PO 06/27/16 06:00 07/27/16 05:59 06/28/16 05:47 290 MCG Heparin Sodium (Porcine) (Heparin 100 Unit/ml 5ml Flush) 5 ml PRN PRN IV 06/26/16 18:15 07/26/16 18:14 06/28/16 06:51 5 ML Tramadol HCl (Ultram Tab) 100 mg Q4H PRN PO 06/27/16 13:15 07/27/16 13:14 06/28/16 07:47 100 MG Objective Vital Signs Date Time Temp Pulse Resp B/P Pulse Ox O2 Delivery O2 Flow Rate FiO2 06/28/16 08:40 36.5 96 18 129/77 92 Room Air 06/28/16 08:38 92 Room Air 06/28/16 08:00 93 Room Air 06/28/16 07:09 36.5 71 16 134/75 93 Room Air 06/28/16 00:20 Room Air 06/27/16 22:53 36.7 101 18 108/65 93 Room Air 06/27/16 15:38 36.4 110 18 137/75 95 Room Air Physical Exam General Appearance: WD/WN, no apparent distress, + obese Eyes: normal inspection, EOMI, sclerae normal ENT: normal ENT inspection, hearing grossly normal, pharynx normal Neck: supple, no adenopathy, trachea midline Respiratory/Chest: chest non-tender, lungs clear, normal breath sounds, no respiratory distress Cardiovascular: regular rate, rhythm, no gallop, no murmur Abdomen: normal bowel sounds, soft, no organomegaly, + tenderness Extremities: non-tender, no calf tenderness Neurologic/Psychiatric: alert, oriented x 3 Skin: normal color, warm/dry, no rash Lymphatic: no adenopathy Assessment and Plan 31-year-old female with spina bifida and paraplegia with history of recurrent urinary tract infections, now with another urinary tract infection with relatively resistant Pseudomonas aeruginosa. Recurrent symptoms despite appropriate therapy, repeat urine for urinalysis and culture ordered. I will adjust antibiotics if necessary.
[2016-06-28] MEDS: hydrOXYzine HCL 25 MG TAB PO SCH (12:00)
[2016-06-28 12:16] LABS: URINE APPEARANCE CLEAR (CLEAR); URINE BILIRUBIN NEG (NEG); URINE COLOR YELLOW; URINE EPITHELIAL CELL AUTO >30 /lpf (0-5); URINE NITRITE POS (NEG); URINE PH 7.5 (4.5-7.5); URINE SPECIFIC GRAVITY 1.004 (1.000-1.030); UROBILINOGEN NEG (NEG)
[2016-06-28 12:20] LABS: MANUAL MICROSCOPIC REQUIRED? NO; REVIEW REQ? YES
--- NOTE | 2016-06-28 13:52 | Progress Note ---
Subjective Date of Service: Jun 28, 2016. Subjective Pt evaluation today including: conversation w/ patient Pt is tolerating PO, but having more nausea today. Also with increased pelvic burning and pain is now moving superiorly into her abd. She also notes L>R back pain today. Pt states she sleeps in a hospital bed at home with a similar mattress and does not usually have back pain like this. She states diarrhea x4 days. No fever. Pt denies fever, SOB, chest pain, v/c/d, LE pain or swelling. ROS as noted above, otherwise neg. Problem List Medical Problems: (1) Acute pyelonephritis Status: Acute (2) Allergic reaction Status: Acute (3) Allergic reaction Status: Acute (4) Complicated urinary tract infection Status: Acute (5) Gabapentin overdose Status: Acute (6) Intractable headache Status: Acute (7) Low back pain Status: Acute (8) Lower abdominal pain Status: Acute (9) Nausea Status: Acute (10) Right flank pain Status: Acute (11) Right leg pain Status: Acute (12) Self-harming behavior Status: Acute (13) Shunt malfunction Status: Acute (14) Shunt malfunction Status: Acute (15) Suicidal ideation Status: Acute (16) Suicidal ideation Status: Acute (17) Suprapubic pain Status: Acute (18) Urinary tract infection Status: Acute (19) UTI (urinary tract infection) Status: Acute (20) UTI (urinary tract infection) Status: Acute Objective Vital Signs Date Time Temp Pulse Resp B/P Pulse Ox O2 Delivery O2 Flow Rate FiO2 06/28/16 08:40 36.5 96 18 129/77 92 Room Air 06/28/16 08:38 92 Room Air 06/28/16 08:00 93 Room Air 06/28/16 07:09 36.5 71 16 134/75 93 Room Air 06/28/16 00:20 Room Air 06/27/16 22:53 36.7 101 18 108/65 93 Room Air 06/27/16 15:38 36.4 110 18 137/75 95 Room Air Physical Exam Comments: General Appearance: no apparent distress, + obese Respiratory/Chest: normal breath sounds, no respiratory distress Cardiovascular: regular rate, rhythm, no edema Abdomen: mild and diffuse TTP, soft Extremities: non-tender, no pedal edema, neg for CVA TTP Neurologic/Psychiatric: alert, oriented x 3 Skin: normal color, warm/dry Laboratory Results Last 24 Hours Test 06/28/16 12:00 Urine Color YELLOW Urine Appearance CLEAR Urine pH 7.5 Urine Specific [place] 1.004 Urine Protein NEG Urine Glucose (UA) NEG Urine Ketones NEG Urine Occult Blood NEG Urine Nitrite POS Urine Bilirubin NEG Urine Urobilinogen NEG Urine Leukocyte Esterase MODERATE Urine WBC (Auto) 10-30 /hpf Urine RBC (Auto) 0-4 /hpf Urine Hyaline Casts (Auto) 1-5 /lpf Urine Epithelial Cells (Auto) >30 /lpf Urine Bacteria (Auto) 1+ Urine Renal Epithelial Cells /lpf Assessment and Plan 31 y/o F with Spina bifida, chronic suprapubic cath transferred from psych unit as she was found to have pseudomonal UTI complicated UTI POA reported that her allergy to cephalosporin is only mild itch and she tolerated cephalosporin in the past when premedicated with steroid prior to admin order cefepime 2G /12hr (with steroids) Renal US WNL ID c/s noted, planning for cefepime x7 days--concern that abx is not fully tx given what pt describes as worsening sx although cx from 06/24 listed as sensi to cefepime Repeat UA again + for UTI with cx pending ID will adjust abx if needed Spina Bifida / 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 At this time, appears stable Bipolar , Anxiety, schizoaffective disorder with suicidal ideation on admission to psych unit Psych c/s noted, planning for care on psych unit once medically stable continue her current psych meds Asthma. Continue her on her current medications / inhalers DVT : Enoxaparin 40 mg subcutaneous daily. Full code
[2016-06-28 14:59] VITALS: BP 127/78; PULSE 93; TEMP 36.6; O2SAT 95
[2016-06-28] MEDS: MECLIZINE HCL 25 MG TAB PO PRN (15:48)
[2016-06-28] MEDS: ACETAMINOPHEN 325 MG TAB PO PRN (17:06)
[2016-06-28] MEDS: RANITIDINE HCL 150 MG TAB PO SCH (20:52)
[2016-06-28] MEDS: ENOXAPARIN 40 MG/0.4 ML SYR SQ SCH ×2 (20:53→21:00)
[2016-06-28] MEDS: NORTRIPTYLINE HCL 25 MG CAP PO SCH (20:56)
[2016-06-28 23:11] VITALS: BP 107/72; PULSE 85; TEMP 36.6; O2SAT 91
[2016-06-29] MEDS: NYSTATIN EXT PRN (06:23)
[2016-06-29] MEDS: CEFEPIME IV 2,000 MG in DEXTROSE 5% 100ML 100 ML IV SCH ×2 (06:23→18:04)
[2016-06-29] MEDS: LINACLOTIDE PO SCH (06:24)
[2016-06-29] MEDS: METHYLPREDNISOLONE IV 20 MG in SYRINGE 0 ML IV SCH ×2 (06:24→17:58)
[2016-06-29 06:47] VITALS: BP 117/78; PULSE 85; TEMP 36.5; O2SAT 99
[2016-06-29 07:35] VITALS: O2SAT 99
[2016-06-29] MEDS: FERROUS SULFATE 325 MG TAB PO SCH ×2 (09:10→17:58)
[2016-06-29] MEDS: SALMETEROL INH SCH ×2 (09:11→20:30)
[2016-06-29] MEDS: FLUTICASONE INH SCH ×2 (09:11→20:30)
[2016-06-29] MEDS: ARIPIprazole TAB 5 MG TAB PO SCH (09:12)
[2016-06-29] MEDS: HYOSCYAMINE SULFATE 0.125 MG SL TAB PO SCH ×4 (09:13→20:33)
[2016-06-29] MEDS: LITHIUM CARBONATE 300 MG TAB PO SCH ×2 (09:13→20:33)
[2016-06-29] MEDS: MULTIVITAMIN TAB PO SCH (09:14)
[2016-06-29] MEDS: PANTOprazole SOD 40 MG TAB PO SCH (09:14)
[2016-06-29] MEDS: GABAPENTIN 300 MG CAP PO SCH ×3 (09:14→20:34)
[2016-06-29] MEDS: CHOLECALCIFEROL 1000 INTER.UNIT TAB PO SCH (09:15)
[2016-06-29] MEDS: CLONAZEPAM 0.5 MG TAB PO SCH ×2 (09:18→20:30)
--- NOTE | 2016-06-29 11:31 | Hospitalist Progress Note ---
Hospitalist Progress Note Date of Service Jun 29, 2016. (Nelda Lux ., JOC) Subjective Pt evaluation today including: conversation w/ patient, physical exam, chart review, lab review, review of studies, review of inpatient medication list Pain: 9/10 burning pain PO Intake: Tolerating PO diet Voiding: arango catheter in place (suprapubic catheter in place) Patient complains of a constant, 9/10 burning pain in lower abdomen. She states that if her bladder becomes full then the pain turns into a sharper pain. She states that this is improved compared to yesterday. The pain radiates to her sides and back, R>L. She also complains of intermittent nausea that does not seem to have any aggravating factors, and she denies any vomiting. The patient denies fevers, chills, sweats, chest pain, palpitations, claudication, cough, wheezing, shortness of breath, vomiting, hematuria, urinary retention, paralysis, weakness, numbness and tingling. Additional Comments: See HPI for pertinent positives and negatives. All other systems reviewed and negative. (Nelda Lux ., PA-C) Objective Vital Signs Date Time Temp Pulse Resp B/P Pulse Ox O2 Delivery O2 Flow Rate FiO2 06/29/16 07:35 99 Room Air 06/29/16 06:47 36.5 85 18 117/78 99 Room Air 06/29/16 00:10 Room Air 06/28/16 23:11 36.6 85 16 107/72 91 Room Air 06/28/16 14:59 36.6 93 16 127/78 95 Room Air 06/28/16 14:45 Room Air (Nelda Lux ., DOMINGO-C) Physical Exam General Appearance: WD/WN, no apparent distress, + obese (morbidly obese) Eyes: normal inspection, sclerae normal ENT: normal ENT inspection, hearing grossly normal, pharynx normal Neck: supple, no JVD, trachea midline Respiratory/Chest: lungs clear, normal breath sounds, no respiratory distress Cardiovascular: regular rate, rhythm, no gallop, no murmur Abdomen: normal bowel sounds, soft, + distended (RLQ and LLQ TTP), + pertinent finding (positive CVA tenderness b/l R>L) Extremities: non-tender, normal inspection, + pertinent finding (bilateral BKA) Neurologic/Psychiatric: alert, normal mood/affect, oriented x 3 Skin: normal color, warm/dry, no rash (Nelda Lux PA-C) Laboratory Results Last 24 Hours Test 06/28/16 12:00 Urine Color YELLOW Urine Appearance CLEAR Urine pH 7.5 Urine Specific [place] 1.004 Urine Protein NEG Urine Glucose (UA) NEG Urine Ketones NEG Urine Occult Blood NEG Urine Nitrite POS Urine Bilirubin NEG Urine Urobilinogen NEG Urine Leukocyte Esterase MODERATE Urine WBC (Auto) 10-30 /hpf Urine RBC (Auto) 0-4 /hpf Urine Hyaline Casts (Auto) 1-5 /lpf Urine Epithelial Cells (Auto) >30 /lpf Urine Bacteria (Auto) 1+ Urine Renal Epithelial Cells /lpf (Nelda Lux .WILLIAMS) Assessment and Plan 31 y/o female with a history of spina bifida, 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 Pt has chronic suprapubic cath. Complicated UTI POA -Urine culture from 06/24 positive for pseudomonas resistant to carbapenems, Levaquin and Cipro -Reported that her allergy to cephalosporin is only mild itch and she tolerated cephalosporin in the past when premedicated with steroid prior to admin -Continue cefepime 2 gm IV q12h, pretreat with Solu-Medrol 20 mg IV prior to administration. 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 At this time, appears stable Bipolar, Anxiety, schizoaffective disorder with suicidal ideation on admission to psych unit -Psych c/s noted, planning for care on psych unit once medically stable -continue her current psych meds Asthma -Continue her on her current medications / inhalers DVT prophylaxis -Enoxaparin 40 mg SC q24h -SUZAN muñoz and SCDs Code Status -Level I, FULL RESUSCITATION STATUS (Lux, Nelda ., PA-C) Reviewed: Pt Seen/Exam by Me (Mamta Tracy, ) History Pt still with abd/pelvic/back pain, but less than yesterday. Ongoing nausea w/ o emesis, also less than yesterday. Has been able to tolerate PO. No SOB or chest pain. Agree with HPI/ROS as noted. (Mamta Tracy, ) Comments General Appearance: no apparent distress, + obese Respiratory/Chest: normal breath sounds, no respiratory distress Cardiovascular: regular rate, rhythm, no edema Abdomen: mild and diffuse TTP, soft Extremities: non-tender, no pedal edema, neg for CVA TTP Neurologic/Psychiatric: alert, oriented x 3 Skin: normal color, warm/dry (Mamta Tracy DO) Assessment/Plan 31 y/o F with Spina bifida, chronic suprapubic cath transferred from psych unit as she was found to have pseudomonal UTI complicated UTI POA reported that her allergy to cephalosporin is only mild itch and she tolerated cephalosporin in the past when premedicated with steroid prior to admin order cefepime 2G /12hr (with steroids) Renal US WNL ID c/s noted, planning for cefepime x7 days--concern that abx is not fully tx given what pt describes as worsening sx although cx from 06/24 listed as sensi to cefepime Repeat UA again + for UTI with cx pending ID will adjust abx if needed Spina Bifida / Hydrocephalus / 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 At this time, appears stable Bipolar , Anxiety, schizoaffective disorder with suicidal ideation on admission to psych unit Psych c/s noted, planning for care on psych unit once medically stable continue her current psych meds Asthma. Continue her on her current medications / inhalers DVT : Enoxaparin 40 mg subcutaneous daily. Full code (Mamta Tracy DO)
[2016-06-29 12:10] LABS: BASO % 0.2 %; BASO ABS # 0.02 K/uL (0-0.2); COMPLETE YES; HEMATOCRIT 40.6 % (37-47); IG% 0.2 %; LYMPH % 11.5 %; LYMPH ABS # 1.19 K/uL (1.2-3.4); MEAN CELL VOLUME 99.3 fL (80-100); MEAN CORPUSCULAR HEMOGLOBIN 31.1 pg (25-34); MEAN CORPUSCULAR HGB CONC 31.3 g/dl (32-36); MEAN PLATELET VOLUME 10.3 fL (7.4-10.4); MONO % 5.7 %; NEUT % 82.4 %; PLATELET COUNT 192 K/uL (130-400); RED BLOOD COUNT 4.09 M/uL (4.2-5.4); WHITE BLOOD COUNT 10.33 K/uL (4.8-10.8)
[2016-06-29] MEDS: hydrOXYzine HCL 25 MG TAB PO SCH (12:17)
[2016-06-29 12:28] LABS: BUN/CREATININE RATIO 14.2 (10-20); CREATININE 0.77 mg/dl (0.60-1.20); POTASSIUM 3.5 mmol/L (3.5-5.1)
--- NOTE | 2016-06-29 13:50 | Psychiatric Progress Notes ---
Progress Note Date of Service Jun 29, 2016. Interval History 31 yo female with schizoaffective disorder, bipolar type, initially admitted to mental health for command hallucinations to hurt herself. Developed a pseudomonal UTI in the context of permanent suprapubic catheter and was transferred to medical for IV antibiotics. Chief Complaint "Not good. ". Subjective Patient was seen & assessed interval progress reviewed with Treatment Team. Connie reports that she continues to have auditory hallucinations telling her to hurt herself. They trouble her during the day and at night, last night not being able to sleep until 0400 or so. She does not allow herself to act on the commands, and has no plans either. Her mood is "all over the place" since she is experiencing the hallucinations and is still having bladder pain with her UTI. She denies SI however. She is trying to distract herself with books, TV/ movies, and journaling as well. Appetite is good. Review of Systems Constitutional: + fatigue ENT: No dental problems, No hearing loss, No nasal symptoms, No problem reported, No sore throat, No tinnitus, No trouble swallowing, No unusual epistaxis Respiratory: No cough, No dyspnea at rest, No dyspnea on exertion, No hemoptysis, No problem reported, No shortness of breath, No sputum, No wheezing Cardiovascular: No PND, No chest pain, No claudication, No edema, No orthopnea , No palpitations, No problem reported Abdomen: + problem reported (bladder pain with UTI) Musculoskeletal: No calf pain, No joint pain, No muscle pain, No problem reported, No swelling Neurologic: No balance problems, No memory loss, No numbness/tingling, No paralysis, No problem reported, No vertigo, No weakness Psychiatric: + anxiety, + depression symptoms, + problem reported (auditory hallucinations) Integumentary: No bleeding, No color change, No itch, No new/changing skin lesions, No problem reported, No rash Mental Status Exam During interview pt is: alert and oriented, cooperative Appearance: appropriately dressed, disheveled Eye contact is: good Motor behavior is: no abnormal motor movements Speech: normal in rate, rhythm & volume Affect: blunted Mood is: depressed Thought process: goal directed, clear, coherent Thought content: other (aud hallucinations) Suicidal thought are: denied Homicidal thoughts are: denied Hallucinations: auditory (commanding her to hurt herself. ) Cognition: memory grossly intact, attention grossly intact Intelligence estimated to be: average Insight: fair Judgement: impaired Impression Patient continues with aud hallucinations. We had increased her Abilify by 2.5 mg prior to transfer, but with little improvement. Will further titrate to 15 mg. daily to target hallucinations and mood. We will continue to follow along in the event she needs continued inpatient mental health treatment when medically cleared. Plan (1) Schizoaffective disorder, bipolar type 06/29 - Increase Abilify to 15 mg. HS - Continue other psych meds Discharge / Aftercare Planning Psychiatrist: Name: Dr. Goode Therapist: Name: Sandra at [facility] [employer] Job Titles: Name: Theresa Culp Visit Code E&M Code: 61303 Risk Factors Assessment : Yes /single/: Yes Higher / Fall in social status: No Access to guns: No Health problems: Yes Mental Health Diagnoses: Yes Substance use disorders: No Previous attempt: Yes Previous psychiatric stay: Yes Smoker: No Protective Factors Assessment Druze beliefs: No : No Responsible for young children: No Employed: No Stable relationships: Yes Supportive family: Yes Good rapport with provider: Yes Data Vital Signs Last 24 Hrs: Date Time Temp Pulse Resp B/P Pulse Ox O2 Delivery O2 Flow Rate FiO2 06/29/16 07:35 99 Room Air 06/29/16 06:47 36.5 85 18 117/78 99 Room Air 06/29/16 00:10 Room Air 06/28/16 23:11 36.6 85 16 107/72 91 Room Air 06/28/16 14:59 36.6 93 16 127/78 95 Room Air 06/28/16 14:45 Room Air Meds Administered Last 24 Hrs: Current Inpatient Medications Medications (Trade) Dose Ordered Sig/Brenna Route Start Time Stop Time Status Last Admin Dose Admin Enoxaparin Sodium (Lovenox Inj) 40 mg Q24H SQ 06/26/16 21:00 07/26/16 20:59 Acetaminophen (Tylenol Tab) 650 mg Q4H PRN PO 06/26/16 17:30 07/26/16 17:29 06/28/16 17:06 650 MG Al Hydrox/Mg Hydrox/Simethicone (Maalox Max Susp) 15 ml Q4H PRN PO 06/26/16 17:30 07/26/16 17:29 Magnesium Hydroxide (Milk Of Magnesia Susp) 30 ml Q6H PRN PO 06/26/16 17:30 07/26/16 17:29 Polyethylene (Miralax Powder Packet) 17 gm DAILY PRN PO 06/26/16 17:30 07/26/16 17:29 Zolpidem Tartrate (Ambien Tab) 5 mg HSZ PRN PO 06/26/16 17:30 07/26/16 17:29 Ondansetron HCl 4 mg 4 mg Q6H PRN IV 06/26/16 17:30 07/26/16 17:29 06/28/16 14:27 4 MG Cefepime HCl 2000 mg/Dextrose 112.5 ml @ 200 mls/hr Q12@0600,1800 IV 06/26/16 18:00 07/06/16 17:59 06/29/16 06:23 200 MLS/HR Methylprednisolone Sodium Succinate/ Syringe (Solu-Medrol IV/ Syringe) 0.32 ml @ 1.5 mls/min Q12@0540,1740 IV 06/26/16 17:40 07/26/16 17:39 06/29/16 06:24 1.5 MLS/MIN Albuterol (Ventolin Hfa Inhaler) 2 puffs Q4 PRN INH 06/26/16 18:00 07/26/16 17:59 Aripiprazole (Abilify Tab) 12.5 mg DAILY PO 06/27/16 09:00 07/27/16 08:59 06/29/16 09:12 12.5 MG Clonazepam (Klonopin Tab) 0.5 mg BID PO 06/26/16 21:00 07/26/16 20:59 06/29/16 09:18 0.5 MG Salmeterol Xinafoate/ Fluticasone (Advair Diskus 500/50 Inh) 1 puff BID INH 06/26/16 21:00 07/26/16 20:59 06/29/16 09:11 1 PUFF Gabapentin (Neurontin Cap) 300 mg TID PO 06/26/16 21:00 07/26/16 20:59 06/29/16 09:14 300 MG Hydroxyzine HCl (Vistaril Tab) 25 mg QD@1200 PO 06/27/16 12:00 07/27/16 11:59 06/29/16 12:17 25 MG Hyoscyamine Sulfate (Levsin Tab) 0.125 mg QID PO 06/26/16 21:00 07/26/16 20:59 06/29/16 12:17 0.125 MG [place] Carbonate ([place] Carbonate Tab) 300 mg QAM PO 06/27/16 09:00 07/27/16 08:59 06/29/16 09:13 300 MG [place] Carbonate ([place] Carbonate Tab) 600 mg HS PO 06/26/16 21:00 07/26/16 20:59 06/28/16 20:54 600 MG Meclizine HCl (Antivert Tab) 25 mg Q8 PRN PO 06/26/16 18:00 07/26/16 17:59 06/28/16 15:48 25 MG Multivitamins (Multivitamin Tab) 1 tab DAILY PO 06/27/16 09:00 07/27/16 08:59 06/29/16 09:14 1 TAB Nortriptyline HCl (Pamelor Cap) 100 mg HS PO 06/26/16 21:00 07/26/16 20:59 06/28/16 20:56 100 MG Nystatin (Mycostatin Oint) 1 appln UD PRN EXT 06/26/16 18:00 07/26/16 17:59 Nystatin (Mycostatin Powder) 1 appln UD PRN EXT 06/26/16 18:00 07/26/16 17:59 06/29/16 06:23 1 APPLN Ondansetron HCl (Zofran Tab) 4 mg DAILY PRN PO 06/26/16 18:00 07/26/16 17:59 Pantoprazole Sodium (Protonix Tab) 40 mg QAM PO 06/27/16 09:00 07/27/16 08:59 06/29/16 09:14 40 MG Ranitidine HCl (zANTac TAB) 150 mg HS PO 06/26/16 21:00 07/26/16 20:59 06/28/16 20:52 150 MG Senna (Senokot Tab) 8.6 mg DAILY PRN PO 06/26/16 18:00 07/26/16 17:59 Tramadol HCl (Ultram Tab) 50 mg Q4H PRN PO 06/26/16 18:00 07/26/16 17:59 06/27/16 13:00 50 MG Cholecalciferol (Vitamin D Tab) 2,000 inter.unit DAILY PO 06/27/16 09:00 07/27/16 08:59 06/29/16 09:15 2,000 INTER.UNIT Ferrous Sulfate (Feosol Tab) 325 mg BIDM PO 06/27/16 08:30 07/27/16 08:29 06/29/16 09:10 325 MG Hydroxyzine HCl (Vistaril Tab) 25 mg Q8 PRN PO 06/26/16 18:00 07/26/16 17:59 Linaclotide (Linzess) 290 mcg DAILYBB PO 06/27/16 06:00 07/27/16 05:59 06/29/16 06:24 290 MCG Heparin Sodium (Porcine) (Heparin 100 Unit/ml 5ml Flush) 5 ml PRN PRN IV 06/26/16 18:15 07/26/16 18:14 06/29/16 12:00 5 ML Tramadol HCl (Ultram Tab) 100 mg Q4H PRN PO 06/27/16 13:15 07/27/16 13:14 06/28/16 16:27 100 MG Lab Results Last 24 Hrs: Last 24 Hours Test 06/29/16 11:58 White Blood Count 10.33 K/uL Red Blood Count 4.09 M/uL Hemoglobin 12.7 g/dL Hematocrit 40.6 % Mean Corpuscular Volume 99.3 fL Mean Corpuscular Hemoglobin 31.1 pg Mean Corpuscular Hemoglobin Concent 31.3 g/dl Platelet Count 192 K/uL Mean Platelet Volume 10.3 fL Neutrophils (%) (Auto) 82.4 % Lymphocytes (%) (Auto) 11.5 % Monocytes (%) (Auto) 5.7 % Eosinophils (%) (Auto) 0.0 % Basophils (%) (Auto) 0.2 % Neutrophils # (Auto) 8.51 K/uL Lymphocytes # (Auto) 1.19 K/uL Monocytes # (Auto) 0.59 K/uL Eosinophils # (Auto) 0.00 K/uL Basophils # (Auto) 0.02 K/uL RDW Standard Deviation 54.3 fL RDW Coefficient of Variation 14.8 % Immature Granulocyte % (Auto) 0.2 % Immature Granulocyte # (Auto) 0.02 K/uL Sodium Level 142 mmol/L Potassium Level 3.5 mmol/L Chloride Level 108 mmol/L Carbon Dioxide Level 25 mmol/L Anion Gap 9.0 mmol/L Blood Urea Nitrogen 11 mg/dl Creatinine 0.77 mg/dl Est Creatinine Clear Calc Drug Dose 77.7 ml/min Estimated GFR () 120.9 Estimated GFR (Non- 104.3 BUN/Creatinine Ratio 14.2 Random Glucose 133 mg/dl Calcium Level 9.0 mg/dl
[2016-06-29 15:25] VITALS: BP 123/81; PULSE 100; TEMP 36.7; O2SAT 97
[2016-06-29] MEDS: TRAMADOL HCL 50 MG TAB PO PRN (16:46)
--- NOTE | 2016-06-29 18:44 | Infectious Disease Progress Nt ---
Progress Note Date of Service Jun 29, 2016. Subjective Pt evaluation today including: conversation w/ patient, physical exam, chart review, lab review, review of studies, conversation w/ medical consultant, review of inpatient medication list Still having hallucinations. Continues to complain of discomfort in her bladder intact. No fever. Urine cultures growing gram-negative bacilli. All Other Systems: Reviewed and Negative Medications Current Inpatient Medications Medications (Trade) Dose Ordered Sig/Brenna Route Start Time Stop Time Status Last Admin Dose Admin Enoxaparin Sodium (Lovenox Inj) 40 mg Q24H SQ 06/26/16 21:00 07/26/16 20:59 Acetaminophen (Tylenol Tab) 650 mg Q4H PRN PO 06/26/16 17:30 07/26/16 17:29 06/28/16 17:06 650 MG Al Hydrox/Mg Hydrox/Simethicone (Maalox Max Susp) 15 ml Q4H PRN PO 06/26/16 17:30 07/26/16 17:29 Magnesium Hydroxide (Milk Of Magnesia Susp) 30 ml Q6H PRN PO 06/26/16 17:30 07/26/16 17:29 Polyethylene (Miralax Powder Packet) 17 gm DAILY PRN PO 06/26/16 17:30 07/26/16 17:29 Zolpidem Tartrate (Ambien Tab) 5 mg HSZ PRN PO 06/26/16 17:30 07/26/16 17:29 Ondansetron HCl 4 mg 4 mg Q6H PRN IV 06/26/16 17:30 07/26/16 17:29 06/28/16 14:27 4 MG Cefepime HCl 2000 mg/Dextrose 112.5 ml @ 200 mls/hr Q12@0600,1800 IV 06/26/16 18:00 07/06/16 17:59 06/29/16 18:04 200 MLS/HR Methylprednisolone Sodium Succinate/ Syringe (Solu-Medrol IV/ Syringe) 0.32 ml @ 1.5 mls/min Q12@0540,1740 IV 06/26/16 17:40 07/26/16 17:39 06/29/16 17:58 1.5 MLS/MIN Albuterol (Ventolin Hfa Inhaler) 2 puffs Q4 PRN INH 06/26/16 18:00 07/26/16 17:59 Clonazepam (Klonopin Tab) 0.5 mg BID PO 06/26/16 21:00 07/26/16 20:59 06/29/16 09:18 0.5 MG Salmeterol Xinafoate/ Fluticasone (Advair Diskus 500/50 Inh) 1 puff BID INH 06/26/16 21:00 07/26/16 20:59 06/29/16 09:11 1 PUFF Gabapentin (Neurontin Cap) 300 mg TID PO 06/26/16 21:00 07/26/16 20:59 06/29/16 14:08 300 MG Hydroxyzine HCl (Vistaril Tab) 25 mg QD@1200 PO 06/27/16 12:00 07/27/16 11:59 06/29/16 12:17 25 MG Hyoscyamine Sulfate (Levsin Tab) 0.125 mg QID PO 06/26/16 21:00 07/26/16 20:59 06/29/16 16:44 0.125 MG [place] Carbonate ([place] Carbonate Tab) 300 mg QAM PO 06/27/16 09:00 07/27/16 08:59 06/29/16 09:13 300 MG [place] Carbonate ([place] Carbonate Tab) 600 mg HS PO 06/26/16 21:00 07/26/16 20:59 06/28/16 20:54 600 MG Meclizine HCl (Antivert Tab) 25 mg Q8 PRN PO 06/26/16 18:00 07/26/16 17:59 06/28/16 15:48 25 MG Multivitamins (Multivitamin Tab) 1 tab DAILY PO 06/27/16 09:00 07/27/16 08:59 06/29/16 09:14 1 TAB Nortriptyline HCl (Pamelor Cap) 100 mg HS PO 06/26/16 21:00 07/26/16 20:59 06/28/16 20:56 100 MG Nystatin (Mycostatin Oint) 1 appln UD PRN EXT 06/26/16 18:00 07/26/16 17:59 Nystatin (Mycostatin Powder) 1 appln UD PRN EXT 06/26/16 18:00 07/26/16 17:59 06/29/16 06:23 1 APPLN Ondansetron HCl (Zofran Tab) 4 mg DAILY PRN PO 06/26/16 18:00 07/26/16 17:59 Pantoprazole Sodium (Protonix Tab) 40 mg QAM PO 06/27/16 09:00 07/27/16 08:59 06/29/16 09:14 40 MG Ranitidine HCl (zANTac TAB) 150 mg HS PO 06/26/16 21:00 07/26/16 20:59 06/28/16 20:52 150 MG Senna (Senokot Tab) 8.6 mg DAILY PRN PO 06/26/16 18:00 07/26/16 17:59 Tramadol HCl (Ultram Tab) 50 mg Q4H PRN PO 06/26/16 18:00 07/26/16 17:59 06/27/16 13:00 50 MG Cholecalciferol (Vitamin D Tab) 2,000 inter.unit DAILY PO 06/27/16 09:00 07/27/16 08:59 06/29/16 09:15 2,000 INTER.UNIT Ferrous Sulfate (Feosol Tab) 325 mg BIDM PO 06/27/16 08:30 07/27/16 08:29 06/29/16 17:58 325 MG Hydroxyzine HCl (Vistaril Tab) 25 mg Q8 PRN PO 06/26/16 18:00 07/26/16 17:59 Linaclotide (Linzess) 290 mcg DAILYBB PO 06/27/16 06:00 07/27/16 05:59 06/29/16 06:24 290 MCG Heparin Sodium (Porcine) (Heparin 100 Unit/ml 5ml Flush) 5 ml PRN PRN IV 06/26/16 18:15 07/26/16 18:14 06/29/16 17:59 5 ML Tramadol HCl (Ultram Tab) 100 mg Q4H PRN PO 06/27/16 13:15 07/27/16 13:14 06/29/16 16:46 100 MG Aripiprazole (Abilify Tab) 15 mg QAM PO 06/30/16 09:00 07/30/16 08:59 Objective Vital Signs Date Time Temp Pulse Resp B/P Pulse Ox O2 Delivery O2 Flow Rate FiO2 06/29/16 17:06 Room Air 06/29/16 15:25 36.7 100 16 123/81 97 06/29/16 07:35 99 Room Air 06/29/16 06:47 36.5 85 18 117/78 99 Room Air 06/29/16 00:10 Room Air 06/28/16 23:11 36.6 85 16 107/72 91 Room Air Physical Exam General Appearance: WD/WN, no apparent distress, + obese Eyes: normal inspection, EOMI, sclerae normal ENT: normal ENT inspection, hearing grossly normal, pharynx normal Neck: supple, no adenopathy, trachea midline Respiratory/Chest: chest non-tender, lungs clear, normal breath sounds, no respiratory distress Cardiovascular: regular rate, rhythm, no gallop, no murmur Abdomen: normal bowel sounds, soft, no organomegaly, + tenderness Extremities: non-tender, no calf tenderness Neurologic/Psychiatric: alert, oriented x 3 Skin: normal color, no rash Lymphatic: no adenopathy Laboratory Results Last 24 Hours Test 06/29/16 11:58 White Blood Count 10.33 K/uL Red Blood Count 4.09 M/uL Hemoglobin 12.7 g/dL Hematocrit 40.6 % Mean Corpuscular Volume 99.3 fL Mean Corpuscular Hemoglobin 31.1 pg Mean Corpuscular Hemoglobin Concent 31.3 g/dl Platelet Count 192 K/uL Mean Platelet Volume 10.3 fL Neutrophils (%) (Auto) 82.4 % Lymphocytes (%) (Auto) 11.5 % Monocytes (%) (Auto) 5.7 % Eosinophils (%) (Auto) 0.0 % Basophils (%) (Auto) 0.2 % Neutrophils # (Auto) 8.51 K/uL Lymphocytes # (Auto) 1.19 K/uL Monocytes # (Auto) 0.59 K/uL Eosinophils # (Auto) 0.00 K/uL Basophils # (Auto) 0.02 K/uL RDW Standard Deviation 54.3 fL RDW Coefficient of Variation 14.8 % Immature Granulocyte % (Auto) 0.2 % Immature Granulocyte # (Auto) 0.02 K/uL Sodium Level 142 mmol/L Potassium Level 3.5 mmol/L Chloride Level 108 mmol/L Carbon Dioxide Level 25 mmol/L Anion Gap 9.0 mmol/L Blood Urea Nitrogen 11 mg/dl Creatinine 0.77 mg/dl Est Creatinine Clear Calc Drug Dose 77.7 ml/min Estimated GFR () 120.9 Estimated GFR (Non- 104.3 BUN/Creatinine Ratio 14.2 Random Glucose 133 mg/dl Calcium Level 9.0 mg/dl Assessment and Plan 31-year-old female with spina bifida and paraplegia with history of recurrent urinary tract infections, now with another urinary tract infection with relatively resistant Pseudomonas aeruginosa. Recurrent symptoms despite appropriate therapy, repeat urine growing GNBs. Will adjust Abx if necessary once final ID/sensitivities available.
[2016-06-29] MEDS: ENOXAPARIN 40 MG/0.4 ML SYR SQ SCH (20:34)
[2016-06-29] MEDS: NORTRIPTYLINE HCL 25 MG CAP PO SCH (20:34)
[2016-06-29] MEDS: RANITIDINE HCL 150 MG TAB PO SCH (20:34)
[2016-06-29 23:57] VITALS: BP 116/71; PULSE 105; TEMP 36.6; O2SAT 93
[2016-06-30] MEDS: MECLIZINE HCL 25 MG TAB PO PRN ×2 (03:20→18:29)
[2016-06-30 03:26] VITALS: BP 121/78; PULSE 90
[2016-06-30] MEDS: METHYLPREDNISOLONE IV 20 MG in SYRINGE 0 ML IV SCH ×2 (05:37→16:56)
[2016-06-30] MEDS: LINACLOTIDE PO SCH (05:55)
[2016-06-30 06:03] LABS: HEMATOCRIT 39.3 % (37-47); MEAN CELL VOLUME 98.7 fL (80-100); MEAN CORPUSCULAR HEMOGLOBIN 31.2 pg (25-34); MEAN CORPUSCULAR HGB CONC 31.6 g/dl (32-36); MEAN PLATELET VOLUME 10.8 fL (7.4-10.4); PLATELET COUNT 197 K/uL (130-400); RED BLOOD COUNT 3.98 M/uL (4.2-5.4)
[2016-06-30] MEDS: CEFEPIME IV 2,000 MG in DEXTROSE 5% 100ML 100 ML IV SCH ×2 (06:07→16:56)
[2016-06-30 06:30] LABS: CREATININE 0.63 mg/dl (0.60-1.20)
[2016-06-30 07:34] VITALS: BP 123/80; PULSE 79; TEMP 36.4; O2SAT 94
[2016-06-30] MEDS: CLONAZEPAM 0.5 MG TAB PO SCH ×2 (09:03→20:32)
[2016-06-30] MEDS: GABAPENTIN 300 MG CAP PO SCH ×3 (09:04→20:33)
[2016-06-30] MEDS: FERROUS SULFATE 325 MG TAB PO SCH ×2 (09:04→16:57)
[2016-06-30] MEDS: SALMETEROL INH SCH ×2 (09:04→20:32)
[2016-06-30] MEDS: FLUTICASONE INH SCH ×2 (09:04→20:32)
[2016-06-30] MEDS: LITHIUM CARBONATE 300 MG TAB PO SCH ×2 (09:04→20:33)
[2016-06-30] MEDS: PANTOprazole SOD 40 MG TAB PO SCH (09:05)
[2016-06-30] MEDS: MULTIVITAMIN TAB PO SCH (09:05)
[2016-06-30] MEDS: HYOSCYAMINE SULFATE 0.125 MG SL TAB PO SCH ×4 (09:05→20:32)
[2016-06-30] MEDS: CHOLECALCIFEROL 1000 INTER.UNIT TAB PO SCH (09:05)
[2016-06-30] MEDS: ARIPIprazole TAB 15 MG TAB PO SCH (09:06)
[2016-06-30] MEDS: hydrOXYzine HCL 25 MG TAB PO SCH (11:43)
--- NOTE | 2016-06-30 12:13 | Progress Note ---
Subjective Date of Service: Jun 30, 2016. Subjective Pt evaluation today including: conversation w/ patient Pt with continued improvement. Still with abd pain, but better. Still with R sided back pain, but better. L sided back pain is resolved. Ongoing nausea but improved. Able to tolerate PO, no emesis. Pt denies fever, SOB, chest pain , c/d, LE pain or swelling. ROS as noted above, otherwise neg. Problem List Medical Problems: (1) Acute pyelonephritis Status: Acute (2) Allergic reaction Status: Acute (3) Allergic reaction Status: Acute (4) Complicated urinary tract infection Status: Acute (5) Gabapentin overdose Status: Acute (6) Intractable headache Status: Acute (7) Low back pain Status: Acute (8) Lower abdominal pain Status: Acute (9) Nausea Status: Acute (10) Right flank pain Status: Acute (11) Right leg pain Status: Acute (12) Schizoaffective disorder, bipolar type Status: Acute (13) Self-harming behavior Status: Acute (14) Shunt malfunction Status: Acute (15) Shunt malfunction Status: Acute (16) Suicidal ideation Status: Acute (17) Suicidal ideation Status: Acute (18) Suprapubic pain Status: Acute (19) Urinary tract infection Status: Acute (20) UTI (urinary tract infection) Status: Acute (21) UTI (urinary tract infection) Status: Acute Objective Vital Signs Date Time Temp Pulse Resp B/P Pulse Ox O2 Delivery O2 Flow Rate FiO2 06/30/16 07:48 Room Air 06/30/16 07:34 36.4 79 18 123/80 94 Room Air 06/30/16 03:26 90 121/78 06/30/16 00:00 Room Air 06/29/16 23:57 36.6 105 15 116/71 93 Room Air 06/29/16 17:06 Room Air 06/29/16 15:25 36.7 100 16 123/81 97 Physical Exam Comments: General Appearance: no apparent distress, + obese Respiratory/Chest: normal breath sounds, no respiratory distress Cardiovascular: regular rate, rhythm, no edema Abdomen: nonTTP, soft Extremities: non-tender, no pedal edema Neurologic/Psychiatric: alert, oriented x 3 Skin: normal color, warm/dry Laboratory Results Last 24 Hours Test 06/30/16 05:16 White Blood Count 11.90 K/uL Red Blood Count 3.98 M/uL Hemoglobin 12.4 g/dL Hematocrit 39.3 % Mean Corpuscular Volume 98.7 fL Mean Corpuscular Hemoglobin 31.2 pg Mean Corpuscular Hemoglobin Concent 31.6 g/dl RDW Standard Deviation 53.6 fL RDW Coefficient of Variation 14.9 % Platelet Count 197 K/uL Mean Platelet Volume 10.8 fL Creatinine 0.63 mg/dl Est Creatinine Clear Calc Drug Dose 95.0 ml/min Estimated GFR () 140.5 Estimated GFR (Non- 121.2 Assessment and Plan 31 y/o F with Spina bifida, chronic suprapubic cath transferred from psych unit as she was found to have pseudomonal UTI complicated UTI POA, seems likely just delayed onset of abx effects reported that her allergy to cephalosporin is only mild itch and she tolerated cephalosporin in the past when premedicated with steroid prior to admin order cefepime 2G /12hr (with steroids) Renal US WNL ID c/s noted, planning for cefepime x7 days--concern that abx is not fully tx given what pt describes as worsening sx although cx from 06/24 listed as sensi to cefepime Repeat UA again + for UTI with cx + for pseudomonas, which is same as 06/24 cx ID will adjust abx if needed Spina Bifida / Hydrocephalus / [employer] shunt with multiple revisions and hydrocephalus. At this time, appears stable Bipolar , Anxiety, schizoaffective disorder with suicidal ideation on admission to psych unit Psych c/s noted, planning for care on psych unit once medically stable continue her current psych meds Asthma. Continue her on her current medications / inhalers DVT : Enoxaparin 40 mg subcutaneous daily. Full code
--- NOTE | 2016-06-30 13:36 | Infectious Disease Progress Nt ---
Progress Note Date of Service Jun 30, 2016. Subjective Pt evaluation today including: conversation w/ patient, physical exam, chart review, lab review, review of studies, conversation w/ law firm consultant, review of inpatient medication list Better today with less "bladder pain". No fever. Tolerating Abx. Urine still positive for Pseudomonas. Sensitivities pending. All Other Systems: Reviewed and Negative Medications Current Inpatient Medications Medications (Trade) Dose Ordered Sig/Brenna Route Start Time Stop Time Status Last Admin Dose Admin Enoxaparin Sodium (Lovenox Inj) 40 mg Q24H SQ 06/26/16 21:00 07/26/16 20:59 Acetaminophen (Tylenol Tab) 650 mg Q4H PRN PO 06/26/16 17:30 07/26/16 17:29 06/28/16 17:06 650 MG Al Hydrox/Mg Hydrox/Simethicone (Maalox Max Susp) 15 ml Q4H PRN PO 06/26/16 17:30 07/26/16 17:29 Magnesium Hydroxide (Milk Of Magnesia Susp) 30 ml Q6H PRN PO 06/26/16 17:30 07/26/16 17:29 Polyethylene (Miralax Powder Packet) 17 gm DAILY PRN PO 06/26/16 17:30 07/26/16 17:29 Zolpidem Tartrate (Ambien Tab) 5 mg HSZ PRN PO 06/26/16 17:30 07/26/16 17:29 Ondansetron HCl 4 mg 4 mg Q6H PRN IV 06/26/16 17:30 07/26/16 17:29 06/28/16 14:27 4 MG Cefepime HCl 2000 mg/Dextrose 112.5 ml @ 200 mls/hr Q12@0600,1800 IV 06/26/16 18:00 07/06/16 17:59 06/30/16 06:07 200 MLS/HR Methylprednisolone Sodium Succinate/ Syringe (Solu-Medrol IV/ Syringe) 0.32 ml @ 1.5 mls/min Q12@0540,1740 IV 06/26/16 17:40 07/26/16 17:39 06/30/16 05:37 1.5 MLS/MIN Albuterol (Ventolin Hfa Inhaler) 2 puffs Q4 PRN INH 06/26/16 18:00 07/26/16 17:59 Clonazepam (Klonopin Tab) 0.5 mg BID PO 06/26/16 21:00 07/26/16 20:59 06/30/16 09:03 0.5 MG Salmeterol Xinafoate/ Fluticasone (Advair Diskus 500/50 Inh) 1 puff BID INH 06/26/16 21:00 07/26/16 20:59 06/30/16 09:04 1 PUFF Gabapentin (Neurontin Cap) 300 mg TID PO 06/26/16 21:00 07/26/16 20:59 06/30/16 13:27 300 MG Hydroxyzine HCl (Vistaril Tab) 25 mg QD@1200 PO 06/27/16 12:00 07/27/16 11:59 06/30/16 11:43 25 MG Hyoscyamine Sulfate (Levsin Tab) 0.125 mg QID PO 06/26/16 21:00 07/26/16 20:59 06/30/16 13:27 0.125 MG [place] Carbonate ([place] Carbonate Tab) 300 mg QAM PO 06/27/16 09:00 07/27/16 08:59 06/30/16 09:04 300 MG [place] Carbonate ([place] Carbonate Tab) 600 mg HS PO 06/26/16 21:00 07/26/16 20:59 06/29/16 20:33 600 MG Meclizine HCl (Antivert Tab) 25 mg Q8 PRN PO 06/26/16 18:00 07/26/16 17:59 06/30/16 03:20 25 MG Multivitamins (Multivitamin Tab) 1 tab DAILY PO 06/27/16 09:00 07/27/16 08:59 06/30/16 09:05 1 TAB Nortriptyline HCl (Pamelor Cap) 100 mg HS PO 06/26/16 21:00 07/26/16 20:59 06/29/16 20:34 100 MG Nystatin (Mycostatin Oint) 1 appln UD PRN EXT 06/26/16 18:00 07/26/16 17:59 Nystatin (Mycostatin Powder) 1 appln UD PRN EXT 06/26/16 18:00 07/26/16 17:59 06/29/16 06:23 1 APPLN Ondansetron HCl (Zofran Tab) 4 mg DAILY PRN PO 06/26/16 18:00 07/26/16 17:59 Pantoprazole Sodium (Protonix Tab) 40 mg QAM PO 06/27/16 09:00 07/27/16 08:59 06/30/16 09:05 40 MG Ranitidine HCl (zANTac TAB) 150 mg HS PO 06/26/16 21:00 07/26/16 20:59 06/29/16 20:34 150 MG Senna (Senokot Tab) 8.6 mg DAILY PRN PO 06/26/16 18:00 07/26/16 17:59 Tramadol HCl (Ultram Tab) 50 mg Q4H PRN PO 06/26/16 18:00 07/26/16 17:59 06/27/16 13:00 50 MG Cholecalciferol (Vitamin D Tab) 2,000 inter.unit DAILY PO 06/27/16 09:00 07/27/16 08:59 06/30/16 09:05 2,000 INTER.UNIT Ferrous Sulfate (Feosol Tab) 325 mg BIDM PO 06/27/16 08:30 07/27/16 08:29 06/30/16 09:04 325 MG Hydroxyzine HCl (Vistaril Tab) 25 mg Q8 PRN PO 06/26/16 18:00 07/26/16 17:59 Linaclotide (Linzess) 290 mcg DAILYBB PO 06/27/16 06:00 07/27/16 05:59 06/29/16 06:24 290 MCG Heparin Sodium (Porcine) (Heparin 100 Unit/ml 5ml Flush) 5 ml PRN PRN IV 06/26/16 18:15 07/26/16 18:14 06/30/16 05:46 5 ML Tramadol HCl (Ultram Tab) 100 mg Q4H PRN PO 06/27/16 13:15 07/27/16 13:14 06/29/16 16:46 100 MG Aripiprazole (Abilify Tab) 15 mg QAM PO 06/30/16 09:00 07/30/16 08:59 06/30/16 09:06 15 MG Objective Vital Signs Date Time Temp Pulse Resp B/P Pulse Ox O2 Delivery O2 Flow Rate FiO2 06/30/16 07:48 Room Air 06/30/16 07:34 36.4 79 18 123/80 94 Room Air 06/30/16 03:26 90 121/78 06/30/16 00:00 Room Air 06/29/16 23:57 36.6 105 15 116/71 93 Room Air 06/29/16 17:06 Room Air 06/29/16 15:25 36.7 100 16 123/81 97 Physical Exam General Appearance: WD/WN, no apparent distress, + obese Eyes: normal inspection, sclerae normal ENT: normal ENT inspection, hearing grossly normal, pharynx normal Neck: supple, no adenopathy, thyroid normal, trachea midline Respiratory/Chest: chest non-tender, lungs clear, normal breath sounds, no respiratory distress Cardiovascular: regular rate, rhythm, no gallop, no murmur Abdomen: normal bowel sounds, soft, no organomegaly, + tenderness Extremities: non-tender, no calf tenderness Neurologic/Psychiatric: alert, oriented x 3 Skin: normal color, no rash Lymphatic: no adenopathy Laboratory Results RUN DATE: 06/30/16 [facility] LAB PAGE 1 RUN TIME: 0820 Specimen Inquiry PATIENT[id number] LOC: SERA U # : [id number] AGE/SX: 31/F ROOM: N3 REG : 06/26/[address]: Mamta Tracy, : 1985 BED: 2 DIS : STATUS: ADM IN TLOC: SPEC #: [id number] AUGUSTUS: 06/28/16-1200 STATUS: RES REQ #: [id number] RECD: 06/28/161202 [facility] DR: Sourav Sauceda MD SOURCE: URINE SUP ENTR: 06/28/16-[address]: Darvin Lea, D.O.Int.Med. [facility]: Josephine Glover MD Pell, Melissa C., Mamta Galarza , DO ORDERED: CULTURE UR CATH COMMENTS: Has Specimen Been Obtained/Collected? Y Procedure Result Verified Site URINE CULTURE Preliminary 06/30/16 Organism 1 PROBABLE PSEUDOMONAS SPECIES COLONY COUNT >100,000 CFU/ml SENS SENSITIVITY TO FOLLOW Organism 2 PROBABLE PSEUDOMONAS SPECIES#2 COLONY COUNT >100,000 CFU/ml SENS SENSITIVITY TO FOLLOW Last 24 Hours Test 06/30/16 05:16 White Blood Count 11.90 K/uL Red Blood Count 3.98 M/uL Hemoglobin 12.4 g/dL Hematocrit 39.3 % Mean Corpuscular Volume 98.7 fL Mean Corpuscular Hemoglobin 31.2 pg Mean Corpuscular Hemoglobin Concent 31.6 g/dl RDW Standard Deviation 53.6 fL RDW Coefficient of Variation 14.9 % Platelet Count 197 K/uL Mean Platelet Volume 10.8 fL Creatinine 0.63 mg/dl Est Creatinine Clear Calc Drug Dose 95.0 ml/min Estimated GFR () 140.5 Estimated GFR (Non- 121.2 Assessment and Plan 31-year-old female with spina bifida and paraplegia with history of recurrent urinary tract infections, now with another urinary tract infection with relatively resistant Pseudomonas aeruginosa. Recurrent symptoms despite appropriate therapy, repeat urine growing Pseudomonas, worried about resistant strain. Await sensitivities.
[2016-06-30 15:40] VITALS: BP 112/73; PULSE 105; TEMP 36.4; O2SAT 93
[2016-06-30] MEDS: ACETAMINOPHEN 325 MG TAB PO PRN (20:16)
[2016-06-30] MEDS: NORTRIPTYLINE HCL 25 MG CAP PO SCH (20:33)
[2016-06-30] MEDS: RANITIDINE HCL 150 MG TAB PO SCH (20:33)
[2016-06-30] MEDS: ENOXAPARIN 40 MG/0.4 ML SYR SQ SCH (20:34)
[2016-06-30 23:07] VITALS: BP 118/74; PULSE 84; TEMP 36.6; O2SAT 94
[2016-07-01] MEDS: METHYLPREDNISOLONE IV 20 MG in SYRINGE 0 ML IV SCH ×3 (05:46→19:57)
[2016-07-01] MEDS: LINACLOTIDE PO SCH (05:47)
[2016-07-01] MEDS: CEFEPIME IV 2,000 MG in DEXTROSE 5% 100ML 100 ML IV SCH (05:47)
[2016-07-01 07:26] VITALS: BP 126/73; PULSE 79; TEMP 36.5; O2SAT 94
[2016-07-01 08:39] LABS: HEMATOCRIT 42.6 % (37-47); MEAN CELL VOLUME 97.3 fL (80-100); MEAN CORPUSCULAR HEMOGLOBIN 30.6 pg (25-34); MEAN CORPUSCULAR HGB CONC 31.5 g/dl (32-36); MEAN PLATELET VOLUME 10.3 fL (7.4-10.4); PLATELET COUNT 209 K/uL (130-400); RED BLOOD COUNT 4.38 M/uL (4.2-5.4); WHITE BLOOD COUNT 11.87 K/uL (4.8-10.8)
[2016-07-01] MEDS: CLONAZEPAM 0.5 MG TAB PO SCH ×2 (08:52→21:03)
[2016-07-01] MEDS: HYOSCYAMINE SULFATE 0.125 MG SL TAB PO SCH ×4 (08:52→21:04)
[2016-07-01] MEDS: FLUTICASONE INH SCH ×2 (08:52→21:02)
[2016-07-01] MEDS: SALMETEROL INH SCH ×2 (08:52→21:02)
[2016-07-01] MEDS: PANTOprazole SOD 40 MG TAB PO SCH (08:53)
[2016-07-01] MEDS: FERROUS SULFATE 325 MG TAB PO SCH ×2 (08:53→16:52)
[2016-07-01] MEDS: CHOLECALCIFEROL 1000 INTER.UNIT TAB PO SCH (08:53)
[2016-07-01] MEDS: MULTIVITAMIN TAB PO SCH (08:54)
[2016-07-01] MEDS: LITHIUM CARBONATE 300 MG TAB PO SCH ×2 (08:54→21:04)
[2016-07-01] MEDS: ARIPIprazole TAB 15 MG TAB PO SCH (08:55)
[2016-07-01] MEDS: GABAPENTIN 300 MG CAP PO SCH ×3 (08:55→21:04)
[2016-07-01 09:04] LABS: BUN/CREATININE RATIO 26.4 (10-20); CALCIUM 8.7 mg/dl (8.5-10.1); CREATININE 0.61 mg/dl (0.60-1.20); POTASSIUM 3.9 mmol/L (3.5-5.1)
--- NOTE | 2016-07-01 10:40 | Psychiatric Progress Notes ---
Psychiatric Progress Note Date of Service Jul 01, 2016. Notes ID: Patient reviewed with liaison nurse. Interim progress reviewed. OMAR Winn increased Abilify on 06/29/16. CC: "I have a lot to keep me busy but still depressed" HPI: seen last night by liaison as still reporting 2 separate voices urging her to self injure. She denies intent or plan and continues to use stop techniques. She feels that mood tends to be more depressed since lithium increased, last level while still on unit 1.3. No subjective/objective signs/ symptoms of lithium toxicity but has been using Ultram regularly for pain which can impact levels. ROS: less suprapubic pain, denies GI side effects, no significant tremor MSE: alert, cooperative, speech clear, thoughts concrete but reality based, denies SI/HI/holm. Imp: schizoaffective disorder--ongoing depression and intermittent aud command holm Plan: continue q15 min checks lithium level in am consider Trilafon augmentation normal t3 and t4 but given reports of depression and TSH >5 could consider synthroid, may be safer alternative to augment for depression than SSRI.
--- NOTE | 2016-07-01 10:41 | Hospitalist Progress Note ---
Hospitalist Progress Note Date of Service Jul 01, 2016. (Nelda Lux ., WILLIAMS) 07/01/16 agree with PA note (Sean Carroll MD) Subjective Pt evaluation today including: conversation w/ patient, physical exam, chart review, lab review, review of inpatient medication list Pain: 4/10 aching pain in lower abdomen PO Intake: Tolerating PO diet Voiding: arango catheter in place The patient reports feeling well. She denies any burning pain but states that she still has a 4/10 aching pain in her lower abdomen. She states that she does not think it is from her bladder as it feels different than her previous pain. The patient does still complain of intermittent nausea, but she states that this is a chronic issue even when she is not sick. The patient denies fevers, chills, sweats, chest pain, palpitations, claudication, cough, wheezing , shortness of breath, vomiting, dysuria, hematuria, urinary retention, paralysis, weakness, numbness and tingling. Additional Comments: See HPI for pertinent positives and negatives. All other systems reviewed and negative. (Nelda Lux, WILLIAMS) Pt evaluation today including: conversation w/ patient, physical exam, chart review, review of studies Constitutional: No fever ENT: No hearing loss Cardiovascular: No chest pain Abdomen: No pain Psychiatric: No depression symptoms Endo: No fatigue (Sean Carroll MD) Objective Vital Signs Date Time Temp Pulse Resp B/P Pulse Ox O2 Delivery O2 Flow Rate FiO2 07/01/16 07:50 Room Air 07/01/16 07:26 36.5 79 16 126/73 94 Room Air 06/30/16 23:07 36.6 84 17 118/74 94 Room Air 06/30/16 20:10 Room Air 06/30/16 16:00 Room Air 06/30/16 15:40 36.4 105 16 112/73 93 Room Air (Nelda Lux PA-C) Physical Exam General Appearance: WD/WN, no apparent distress, + obese (morbidly obese) Eyes: normal inspection, PERRL, sclerae normal ENT: normal ENT inspection, hearing grossly normal, pharynx normal Neck: supple, no JVD, trachea midline Respiratory/Chest: lungs clear, normal breath sounds, no respiratory distress Cardiovascular: regular rate, rhythm, no gallop, no murmur Abdomen: normal bowel sounds, soft, + tenderness (suprapubic area TTP) Extremities: non-tender, normal inspection, + pertinent finding (b/l BKA) Neurologic/Psychiatric: alert, normal mood/affect, oriented x 3 Skin: normal color, warm/dry, no rash (Nelda Lux ., PA-C) General Appearance: WD/WN, no apparent distress Eyes: normal inspection, EOMI ENT: hearing grossly normal, pharynx normal Neck: supple, no JVD Respiratory/Chest: chest non-tender, normal breath sounds Cardiovascular: regular rate, rhythm, no JVD Abdomen: normal bowel sounds, soft Neurologic/Psychiatric: no motor/sensory deficits, oriented x 3 Skin: normal color, no rash (Sean Carroll MD) Laboratory Results Last 24 Hours Test 07/01/16 08:20 White Blood Count 11.87 K/uL Red Blood Count 4.38 M/uL Hemoglobin 13.4 g/dL Hematocrit 42.6 % Mean Corpuscular Volume 97.3 fL Mean Corpuscular Hemoglobin 30.6 pg Mean Corpuscular Hemoglobin Concent 31.5 g/dl RDW Standard Deviation 53.1 fL RDW Coefficient of Variation 15.0 % Platelet Count 209 K/uL Mean Platelet Volume 10.3 fL Sodium Level 141 mmol/L Potassium Level 3.9 mmol/L Chloride Level 106 mmol/L Carbon Dioxide Level 25 mmol/L Anion Gap 10.0 mmol/L Blood Urea Nitrogen 16 mg/dl Creatinine 0.61 mg/dl Est Creatinine Clear Calc Drug Dose 98.1 ml/min Estimated GFR () 142.0 Estimated GFR (Non- 122.5 BUN/Creatinine Ratio 26.4 Random Glucose 101 mg/dl Calcium Level 8.7 mg/dl (Nelda Lux ., PA-C) Assessment and Plan 31 y/o female with a history of spina bifida, hydrocephalus S/P [employer] shunt with multiple revisions, psychiatric disorder and recently suicidal ideation presented from psych unit with pseudomonal UTI. Pt has chronic suprapubic cath. Complicated UTI POA -Urine culture from 06/24 positive for pseudomonas resistant to carbapenems, Levaquin and Cipro, sensitive to cefepime -Repeat urine culture positive for pseudomonas again, sensitivities show intermediate sensitivity to cefepime. -ID consulted, appreciate recs: start Zerbaxa 1.5 g q8h x 7 days. Zosyn allergy was due to piperacillin, but will continue to pretreat with steroids -D/C cefepime 07/01 -Reported that her allergy to cephalosporin is only mild itch and she tolerated cephalosporin in the past when premedicated with steroid prior to admin -Continue to pretreat abx with Solu-Medrol 20 mg IV prior to administration q8h -Renal US WNL Spina Bifida / Hydrocephalus / [employer] shunt with multiple revisions and hydrocephalus. At this time, appears stable Bipolar, Anxiety, schizoaffective disorder with suicidal ideation on admission to psych unit -Psych c/s noted, planning for care on psych unit once medically stable -Continue Abilify 15 mg PO qd, Klonopin 0.5 mg PO BID, hydroxyzine 25 mg PO qd and q8h prn anxiety, lithium 300 mg PO qam and 600 mg PO qhs Asthma -Continue Advair 1 puff inh BID and Ventolin 2 puffs inh q4h prn SOB/wheezing DVT prophylaxis -Enoxaparin 40 mg SC q24h -SUZAN muñoz and SERGIOs Code Status -Level I, FULL RESUSCITATION STATUS (Nelda Lux ., PA-C) 31 y/o female with a history of spina bifida, hydrocephalus S/P [employer] shunt with multiple revisions, psychiatric disorder and recently suicidal ideation presented from psych unit with pseudomonal UTI. Pt has chronic suprapubic cath. Complicated UTI POA Urine culture from 06/24 positive for pseudomonas resistant to carbapenems, Levaquin and Cipro, sensitive to cefepime Repeat urine culture positive for pseudomonas again, sensitivities show intermediate sensitivity to cefepime. ID consulted and recommended Zerbaxa 1.5 grams q8h stopped cefepime today Continue to pretreat abx with Solu-Medrol 20 mg IV prior to administration q8h Renal US WNL Spina Bifida / Hydrocephalus / [employer] shunt with multiple revisions and hydrocephalus. At this time, appears stable Bipolar, Anxiety, schizoaffective disorder with suicidal ideation on admission to psych unit Psych recs noted, planning for care on psych unit once medically stable Continue Abilify 15 mg PO qd, Klonopin 0.5 mg PO BID, hydroxyzine 25 mg PO qd and q8h prn anxiety, lithium 300 mg PO qam and 600 mg PO qhs Asthma Continue Advair 1 puff inh BID and Ventolin 2 puffs inh q4h prn SOB/wheezing DVT prophylaxis Enoxaparin 40 mg SC q24h SUZAN muñoz and SCDs Code Status Level I, FULL RESUSCITATION STATUS (Sean Carroll MD)
[2016-07-01] MEDS: DEXTROSE 5% IV SCH ×2 (11:28→19:57)
[2016-07-01] MEDS: TAZOBACTAM IV SCH ×2 (11:28→19:57)
[2016-07-01] MEDS: CEFTOLOZANE IV SCH ×2 (11:28→19:57)
[2016-07-01] MEDS: hydrOXYzine HCL 25 MG TAB PO SCH (11:32)
[2016-07-01] MEDS ORDERED: METHYLPREDNISOLONE IV 20 MG in SYRINGE 0 ML IV SCH (11:40)
[2016-07-01 15:15] VITALS: O2SAT 92
[2016-07-01 15:25] VITALS: BP 114/76; PULSE 100; TEMP 36.6; O2SAT 92
[2016-07-01] MEDS: TRAMADOL HCL 50 MG TAB PO PRN (15:40)
--- NOTE | 2016-07-01 17:31 | Infectious Disease Progress Nt ---
Progress Note Date of Service Jul 01, 2016. Subjective Pt evaluation today including: conversation w/ patient, physical exam, chart review, lab review, review of studies, conversation w/ retail consultant, review of inpatient medication list Patient feels somewhat better today. Remains afebrile. Having more abdominal pain, no flank pain. Cultures now growing more resistant Pseudomonas. All Other Systems: Reviewed and Negative Medications Current Inpatient Medications Medications (Trade) Dose Ordered Sig/Brenna Route Start Time Stop Time Status Last Admin Dose Admin Enoxaparin Sodium (Lovenox Inj) 40 mg Q24H SQ 06/26/16 21:00 07/26/16 20:59 Acetaminophen (Tylenol Tab) 650 mg Q4H PRN PO 06/26/16 17:30 07/26/16 17:29 06/30/16 20:16 650 MG Al Hydrox/Mg Hydrox/Simethicone (Maalox Max Susp) 15 ml Q4H PRN PO 06/26/16 17:30 07/26/16 17:29 Magnesium Hydroxide (Milk Of Magnesia Susp) 30 ml Q6H PRN PO 06/26/16 17:30 07/26/16 17:29 Polyethylene (Miralax Powder Packet) 17 gm DAILY PRN PO 06/26/16 17:30 07/26/16 17:29 Zolpidem Tartrate (Ambien Tab) 5 mg HSZ PRN PO 06/26/16 17:30 07/26/16 17:29 Ondansetron HCl (Zofran Inj) 4 mg Q6H PRN IV 06/26/16 17:30 07/26/16 17:29 06/28/16 14:27 4 MG Albuterol (Ventolin Hfa Inhaler) 2 puffs Q4 PRN INH 06/26/16 18:00 07/26/16 17:59 Clonazepam (Klonopin Tab) 0.5 mg BID PO 06/26/16 21:00 07/26/16 20:59 07/01/16 08:52 0.5 MG Salmeterol Xinafoate/ Fluticasone (Advair Diskus 500/50 Inh) 1 puff BID INH 06/26/16 21:00 07/26/16 20:59 07/01/16 08:52 1 PUFF Gabapentin (Neurontin Cap) 300 mg TID PO 06/26/16 21:00 2/21/17 20:59 07/01/16 13:25 300 MG Hydroxyzine HCl (Vistaril Tab) 25 mg QD@1200 PO 06/27/16 12:00 07/27/16 11:59 07/01/16 11:32 25 MG Hyoscyamine Sulfate (Levsin Tab) 0.125 mg QID PO 06/26/16 21:00 07/26/16 20:59 07/01/16 16:52 0.125 MG [place] Carbonate ([place] Carbonate Tab) 300 mg QAM PO 06/27/16 09:00 07/27/16 08:59 07/01/16 08:54 300 MG [place] Carbonate ([place] Carbonate Tab) 600 mg HS PO 06/26/16 21:00 07/26/16 20:59 06/30/16 20:33 600 MG Meclizine HCl (Antivert Tab) 25 mg Q8 PRN PO 06/26/16 18:00 07/26/16 17:59 06/30/16 18:29 25 MG Multivitamins (Multivitamin Tab) 1 tab DAILY PO 06/27/16 09:00 07/27/16 08:59 07/01/16 08:54 1 TAB Nortriptyline HCl (Pamelor Cap) 100 mg HS PO 06/26/16 21:00 07/26/16 20:59 06/30/16 20:33 100 MG Nystatin (Mycostatin Oint) 1 appln UD PRN EXT 06/26/16 18:00 07/26/16 17:59 Nystatin (Mycostatin Powder) 1 appln UD PRN EXT 06/26/16 18:00 07/26/16 17:59 06/29/16 06:23 1 APPLN Ondansetron HCl (Zofran Tab) 4 mg DAILY PRN PO 06/26/16 18:00 07/26/16 17:59 Pantoprazole Sodium (Protonix Tab) 40 mg QAM PO 06/27/16 09:00 07/27/16 08:59 07/01/16 08:53 40 MG Ranitidine HCl (zANTac TAB) 150 mg HS PO 06/26/16 21:00 07/26/16 20:59 06/30/16 20:33 150 MG Senna (Senokot Tab) 8.6 mg DAILY PRN PO 06/26/16 18:00 07/26/16 17:59 Tramadol HCl (Ultram Tab) 50 mg Q4H PRN PO 06/26/16 18:00 07/26/16 17:59 06/27/16 13:00 50 MG Cholecalciferol (Vitamin D Tab) 2,000 inter.unit DAILY PO 06/27/16 09:00 07/27/16 08:59 07/01/16 08:53 2,000 INTER.UNIT Ferrous Sulfate (Feosol Tab) 325 mg BIDM PO 06/27/16 08:30 07/27/16 08:29 07/01/16 16:52 325 MG Hydroxyzine HCl (Vistaril Tab) 25 mg Q8 PRN PO 06/26/16 18:00 07/26/16 17:59 Linaclotide (Linzess) 290 mcg DAILYBB PO 06/27/16 06:00 07/27/16 05:59 07/01/16 05:47 290 MCG Heparin Sodium (Porcine) (Heparin 100 Unit/ml 5ml Flush) 5 ml PRN PRN IV 06/26/16 18:15 07/26/16 18:14 07/01/16 06:29 5 ML Tramadol HCl (Ultram Tab) 100 mg Q4H PRN PO 06/27/16 13:15 07/27/16 13:14 07/01/16 15:40 100 MG Aripiprazole 15 mg 15 mg QAM PO 06/30/16 09:00 07/30/16 08:59 07/01/16 08:55 15 MG Ceftolozane/ Tazobactam 1.5 gm/ Dextrose 111.4 ml @ 111.4 mls/ hr Q8@0400,1200,2000 IV 07/01/16 12:00 07/11/16 11:59 07/01/16 11:28 111.4 MLS/HR Methylprednisolone Sodium Succinate/ Syringe (Solu-Medrol IV/ Syringe) 0.32 ml @ 1.5 mls/min Q8@0340,1140,1940 IV 07/01/16 11:40 07/31/16 11:39 07/01/16 11:27 1.5 MLS/MIN Levothyroxine Sodium (Synthroid Tab) 25 mcg DAILYBB PO 07/02/16 06:00 08/01/16 05:59 Objective Vital Signs Date Time Temp Pulse Resp B/P Pulse Ox O2 Delivery O2 Flow Rate FiO2 07/01/16 15:25 36.6 100 18 114/76 92 Room Air 07/01/16 15:15 92 Room Air 07/01/16 07:50 Room Air 07/01/16 07:26 36.5 79 16 126/73 94 Room Air 06/30/16 23:07 36.6 84 17 118/74 94 Room Air 06/30/16 20:10 Room Air Physical Exam General Appearance: WD/WN, no apparent distress, + obese Eyes: normal inspection, EOMI, sclerae normal ENT: normal ENT inspection, pharynx normal Neck: supple, no adenopathy, trachea midline Respiratory/Chest: lungs clear, normal breath sounds, no respiratory distress Cardiovascular: regular rate, rhythm, no gallop, no murmur Abdomen: normal bowel sounds, soft, no organomegaly, + tenderness ( Minimal) Extremities: non-tender, no calf tenderness Neurologic/Psychiatric: alert, oriented x 3 Skin: normal color, no rash Lymphatic: no adenopathy Laboratory Results RUN DATE: 07/01/16 [facility] LAB PAGE 1 RUN TIME: 1117 Specimen Inquiry PATIENT: LUCERO BERRIOS LOC: SERA U # : [id number] AGE/SX: 31/F ROOM: [facility] REG : 06/26/[address]: Sean Carroll MD : 1985 BED: 2 DIS : STATUS: ADM IN TLOC: SPEC #: [id number] AUGUSTUS: 06/28/16 STATUS: COMP REQ #: [id number] RECD: 06/28/[address] [facility] [address]: Sourav Sauceda MD SOURCE: URINE SUP ENTR: 06/28/16-[address] [facility] [address]: Darvin Lea, D.O.Int.Med. SPDES: Josephine Glover, Daysi Prieto, Mamta Galarza , DO ORDERED: CULTURE UR CATH COMMENTS: Has Specimen Been Obtained/Collected? Y Procedure Result Verified Site URINE CULTURE Final 07/01/161117 Organism 1 PSEUDOMONAS AERUGINOSA COLONY COUNT >100,000 CFU/ml SENS SENSITIVITY TO FOLLOW Organism 2 PSEUDOMONAS AERUGINOSA#2 COLONY COUNT >100,000 CFU/ml SENS SENSITIVITY TO FOLLOW PSEUD AERG PSEUD AERG#2 M.I.C. RX M.I.C. RX --------- ------ --------- ------ CEFTAZIDIME 8 S 4 S CEFEPIME 16 I 8 S IMIPENEM >8 R >8 R AZTREONAM >16 R 16 I GENTAMICIN 8 I <=4 S TOBRAMYCIN <=4 S <=4 S AMIKACIN 32 I <=16 S CIPROFLOXACIN >2 R >2 R LEVOFLOXACIN >4 R >4 R PIP/TAZO <=16 S <=16 S 1. PSEUDOMONAS AERUGINOSA Target Route Dose RX AB Cost M.I.C. IQ ------ ----- ------ -- ------ -------- - ------ CEFTAZIDIME S 8 CEFEPIME I 16 IMIPENEM R >8 AZTREONAM R >16 GENTAMICIN I 8 TOBRAMYCIN S <=4 AMIKACIN I 32 CIPROFLOXACIN R >2 LEVOFLOXACIN R >4 PIP/TAZO S <=16 CONTINUED ON NEXT PAGE RUN DATE: 07/01/16 [facility] LAB PAGE 2 RUN TIME: 1117 Specimen Inquiry SPEC: [id number] PATIENT: LUCERO BERRIOS [id number] ( Continued) Procedure Result Verified Site URINE CULTURE Final (continued) 07/01/16-1117 2. PSEUDOMONAS AERUGINOSA#2 Target Route Dose RX AB Cost M.I.C. IQ ------ ----- ------ -- ------ -------- - ------ CEFTAZIDIME S 4 CEFEPIME S 8 IMIPENEM R >8 AZTREONAM I 16 GENTAMICIN S <=4 TOBRAMYCIN S <=4 AMIKACIN S <=16 CIPROFLOXACIN R >2 LEVOFLOXACIN R >4 PIP/TAZO S <=16 S = SENSITIVE I = INTERMEDIATE R = RESISTANT Last 24 Hours Test 07/01/16 08:20 White Blood Count 11.87 K/uL Red Blood Count 4.38 M/uL Hemoglobin 13.4 g/dL Hematocrit 42.6 % Mean Corpuscular Volume 97.3 fL Mean Corpuscular Hemoglobin 30.6 pg Mean Corpuscular Hemoglobin Concent 31.5 g/dl RDW Standard Deviation 53.1 fL RDW Coefficient of Variation 15.0 % Platelet Count 209 K/uL Mean Platelet Volume 10.3 fL Sodium Level 141 mmol/L Potassium Level 3.9 mmol/L Chloride Level 106 mmol/L Carbon Dioxide Level 25 mmol/L Anion Gap 10.0 mmol/L Blood Urea Nitrogen 16 mg/dl Creatinine 0.61 mg/dl Est Creatinine Clear Calc Drug Dose 98.1 ml/min Estimated GFR () 142.0 Estimated GFR (Non- 122.5 BUN/Creatinine Ratio 26.4 Random Glucose 101 mg/dl Calcium Level 8.7 mg/dl Assessment and Plan 31-year-old female with spina bifida and paraplegia with history of recurrent urinary tract infections, now with another urinary tract infection with relatively resistant Pseudomonas aeruginosa. Recurrent symptoms despite appropriate therapy, repeat urine growing more resistant Pseudomonas, and as discussed, patient will be changed to IV Zerbaxa for 7 days with concomitant steroids. Will follow.
[2016-07-01] MEDS ORDERED: NURSING VERBAL MED ORDER ONE (18:00)
[2016-07-01] MEDS ORDERED: PHENAZOPYRIDINE HCL 200 MG TAB PO PRN (18:15)
[2016-07-01] MEDS: ACETAMINOPHEN 325 MG TAB PO PRN (19:53)
[2016-07-01] MEDS: ENOXAPARIN 40 MG/0.4 ML SYR SQ SCH (21:00)
[2016-07-01] MEDS: RANITIDINE HCL 150 MG TAB PO SCH (21:03)
[2016-07-01] MEDS: NORTRIPTYLINE HCL 25 MG CAP PO SCH (21:04)
[2016-07-01] MEDS: SENNA 8.6 MG TAB PO PRN (22:31)
[2016-07-01 22:52] VITALS: BP 133/72; PULSE 84; TEMP 36.8; O2SAT 90
[2016-07-02] MEDS: DEXTROSE 5% IV SCH ×3 (04:29→19:55)
[2016-07-02] MEDS: METHYLPREDNISOLONE IV 20 MG in SYRINGE 0 ML IV SCH ×3 (04:29→19:55)
[2016-07-02] MEDS: CEFTOLOZANE IV SCH ×3 (04:29→19:55)
[2016-07-02] MEDS: TAZOBACTAM IV SCH ×3 (04:29→19:55)
[2016-07-02] MEDS: LEVOTHYROXINE 25 MCG TAB PO SCH (05:42)
[2016-07-02] MEDS: LINACLOTIDE PO SCH (05:43)
[2016-07-02 05:55] LABS: HEMATOCRIT 40.5 % (37-47); MEAN CELL VOLUME 97.1 fL (80-100); MEAN CORPUSCULAR HEMOGLOBIN 30.7 pg (25-34); MEAN CORPUSCULAR HGB CONC 31.6 g/dl (32-36); MEAN PLATELET VOLUME 10.1 fL (7.4-10.4); PLATELET COUNT 218 K/uL (130-400); RED BLOOD COUNT 4.17 M/uL (4.2-5.4); WHITE BLOOD COUNT 14.53 K/uL (4.8-10.8)
[2016-07-02 06:27] LABS: BUN/CREATININE RATIO 22.8 (10-20); CALCIUM 8.8 mg/dl (8.5-10.1); CREATININE 0.63 mg/dl (0.60-1.20); POTASSIUM 3.5 mmol/L (3.5-5.1)
[2016-07-02 07:35] VITALS: BP 111/69; PULSE 72; TEMP 36.6; O2SAT 92
[2016-07-02] MEDS: FLUTICASONE INH SCH ×2 (08:57→21:17)
[2016-07-02] MEDS: SALMETEROL INH SCH ×2 (08:57→21:17)
[2016-07-02] MEDS: HYOSCYAMINE SULFATE 0.125 MG SL TAB PO SCH ×4 (08:58→21:17)
[2016-07-02] MEDS: MULTIVITAMIN TAB PO SCH (08:59)
[2016-07-02] MEDS: LITHIUM CARBONATE 300 MG TAB PO SCH ×2 (08:59→21:18)
[2016-07-02] MEDS: ARIPIprazole TAB 15 MG TAB PO SCH (09:00)
[2016-07-02] MEDS: CHOLECALCIFEROL 1000 INTER.UNIT TAB PO SCH (09:00)
[2016-07-02] MEDS: PANTOprazole SOD 40 MG TAB PO SCH (09:01)
[2016-07-02] MEDS: GABAPENTIN 300 MG CAP PO SCH ×3 (09:02→21:20)
[2016-07-02] MEDS: CLONAZEPAM 0.5 MG TAB PO SCH ×2 (09:02→21:16)
[2016-07-02] MEDS: FERROUS SULFATE 325 MG TAB PO SCH ×2 (09:02→17:53)
[2016-07-02] MEDS: SENNA 8.6 MG TAB PO PRN (09:03)
--- NOTE | 2016-07-02 10:05 | Psychiatric Progress Notes ---
Psychiatric Progress Note Date of Service Jul 02, 2016. Notes ID: Patient reviewed with liaison nurse. Interim progress reviewed. OMAR Winn increased Abilify on 06/29/16. CC: a little dizzy yesterday, doesn't attribute to Abilify HPI: requested a visit from liaison last pm to process flashbacks, denies urge to self injure, reports voices are about the same ROS: less suprapubic pain, denies GI side effects, no significant tremor MSE: alert, cooperative, speech clear, thoughts concrete but reality based, denies SI/HI/holm currently lithium level 0.7 Imp: schizoaffective disorder--ongoing depression and intermittent aud command holm Plan: continue q15 min checks may increase am lithium to 450 mg as level lower reviewed synthroid as augmentation strategy for depression given TSH elevations consider Trilafon augmentation if unable to titrate Abilify further, currently declines split dosing of Abilify.
[2016-07-02] MEDS ORDERED: NURSING DECISION MEDICATION ORDER SCH (10:30)
[2016-07-02] MEDS ORDERED: FLUCONAZOLE 100 MG TAB PO ONE (10:45)
[2016-07-02] MEDS: MICONAZOLE NITRATE POWDER 43 GM EXT PRN (10:58)
--- NOTE | 2016-07-02 12:01 | Progress Note ---
Subjective Subjective Date of Service: Jul 02, 2016. Pt evaluation today including: conversation w/ patient, physical exam, chart review, review of studies, review of inpatient medication list Problem List Medical Problems: (1) Acute pyelonephritis Status: Acute (2) Allergic reaction Status: Acute (3) Allergic reaction Status: Acute (4) Complicated urinary tract infection Status: Acute (5) Gabapentin overdose Status: Acute (6) Intractable headache Status: Acute (7) Low back pain Status: Acute (8) Lower abdominal pain Status: Acute (9) Nausea Status: Acute (10) Right flank pain Status: Acute (11) Right leg pain Status: Acute (12) Schizoaffective disorder, bipolar type Status: Acute (13) Self-harming behavior Status: Acute (14) Shunt malfunction Status: Acute (15) Shunt malfunction Status: Acute (16) Suicidal ideation Status: Acute (17) Suicidal ideation Status: Acute (18) Suprapubic pain Status: Acute (19) Urinary tract infection Status: Acute (20) UTI (urinary tract infection) Status: Acute (21) UTI (urinary tract infection) Status: Acute Review of Systems Constitutional: No fever ENT: No hearing loss Respiratory: No cough Abdomen: No pain Female : + dysuria, + problem reported (burning on urination, redness in genital area) Neurologic: No memory loss Psychiatric: No depression symptoms Endo: No fatigue Physical Exam Vital Signs Vital Signs Past 24 Hours: Date Time Temp Pulse Resp B/P Pulse Ox O2 Delivery O2 Flow Rate FiO2 07/02/16 07:35 Room Air 07/02/16 07:35 36.6 72 18 111/69 92 Room Air 07/01/16 22:52 36.8 84 16 133/72 90 Room Air 07/01/16 22:30 Room Air 07/01/16 15:25 36.6 100 18 114/76 92 Room Air 07/01/16 15:15 92 Room Air Physical Exam: General Appearance: WD/WN, no apparent distress Eyes: bilateral eyes normal inspection ENT: hearing grossly normal, pharynx normal Neck: supple, no JVD Respiratory/Chest: chest non-tender, no respiratory distress Cardiovascular: regular rate, rhythm, no JVD Abdomen: normal bowel sounds, no organomegaly Extremities: no pedal edema Neurologic/Psychiatric: normal mood/affect Skin: no rash Medications Medications: Current Inpatient Medications Medications (Trade) Dose Ordered Sig/[place] Route Start Time Stop Time Status Last Admin Dose Admin Enoxaparin Sodium (Lovenox Inj) 40 mg Q24H SQ 06/26/16 21:00 07/26/16 20:59 Acetaminophen (Tylenol Tab) 650 mg Q4H PRN PO 06/26/16 17:30 07/26/16 17:29 07/01/16 19:53 650 MG Al Hydrox/Mg Hydrox/Simethicone (Maalox Max Susp) 15 ml Q4H PRN PO 06/26/16 17:30 07/26/16 17:29 Magnesium Hydroxide (Milk Of Magnesia Susp) 30 ml Q6H PRN PO 06/26/16 17:30 07/26/16 17:29 Polyethylene (Miralax Powder Packet) 17 gm DAILY PRN PO 06/26/16 17:30 07/26/16 17:29 Zolpidem Tartrate (Ambien Tab) 5 mg HSZ PRN PO 06/26/16 17:30 07/26/16 17:29 Ondansetron HCl (Zofran Inj) 4 mg Q6H PRN IV 06/26/16 17:30 07/26/16 17:29 06/28/16 14:27 4 MG Albuterol (Ventolin Hfa Inhaler) 2 puffs Q4 PRN INH 06/26/16 18:00 07/26/16 17:59 Clonazepam (Klonopin Tab) 0.5 mg BID PO 06/26/16 21:00 07/26/16 20:59 07/02/16 09:02 0.5 MG Salmeterol Xinafoate/ Fluticasone (Advair Diskus 500/50 Inh) 1 puff BID INH 06/26/16 21:00 07/26/16 20:59 07/02/16 08:57 1 PUFF Gabapentin (Neurontin Cap) 300 mg TID PO 06/26/16 21:00 07/26/16 20:59 07/02/16 09:02 300 MG Hydroxyzine HCl (Vistaril Tab) 25 mg QD@1200 PO 06/27/16 12:00 07/27/16 11:59 07/01/16 11:32 25 MG Hyoscyamine Sulfate (Levsin Tab) 0.125 mg QID PO 06/26/16 21:00 07/26/16 20:59 07/02/16 08:58 0.125 MG [place] Carbonate ([place] Carbonate Tab) 600 mg HS PO 06/26/16 21:00 07/26/16 20:59 07/01/16 21:04 600 MG Meclizine HCl (Antivert Tab) 25 mg Q8 PRN PO 06/26/16 18:00 07/26/16 17:59 06/30/16 18:29 25 MG Multivitamins (Multivitamin Tab) 1 tab DAILY PO 06/27/16 09:00 07/27/16 08:59 07/02/16 08:59 1 TAB Nortriptyline HCl (Pamelor Cap) 100 mg HS PO 06/26/16 21:00 07/26/16 20:59 07/01/16 21:04 100 MG Nystatin (Mycostatin Oint) 1 appln UD PRN EXT 06/26/16 18:00 07/26/16 17:59 Nystatin (Mycostatin Powder) 1 appln UD PRN EXT 06/26/16 18:00 07/26/16 17:59 06/29/16 06:23 1 APPLN Ondansetron HCl (Zofran Tab) 4 mg DAILY PRN PO 06/26/16 18:00 07/26/16 17:59 Pantoprazole Sodium (Protonix Tab) 40 mg QAM PO 06/27/16 09:00 07/27/16 08:59 07/02/16 09:01 40 MG Ranitidine HCl (zANTac TAB) 150 mg HS PO 06/26/16 21:00 07/26/16 20:59 07/01/16 21:03 150 MG Senna (Senokot Tab) 8.6 mg DAILY PRN PO 06/26/16 18:00 07/26/16 17:59 07/02/16 09:03 8.6 MG Tramadol HCl (Ultram Tab) 50 mg Q4H PRN PO 06/26/16 18:00 07/26/16 17:59 06/27/16 13:00 50 MG Cholecalciferol (Vitamin D Tab) 2,000 inter.unit DAILY PO 06/27/16 09:00 07/27/16 08:59 07/02/16 09:00 2,000 INTER.UNIT Ferrous Sulfate (Feosol Tab) 325 mg BIDM PO 06/27/16 08:30 07/27/16 08:29 07/02/16 09:02 325 MG Hydroxyzine HCl (Vistaril Tab) 25 mg Q8 PRN PO 06/26/16 18:00 07/26/16 17:59 Linaclotide (Linzess) 290 mcg DAILYBB PO 06/27/16 06:00 07/27/16 05:59 07/02/16 05:43 290 MCG Heparin Sodium (Porcine) (Heparin 100 Unit/ml 5ml Flush) 5 ml PRN PRN IV 06/26/16 18:15 07/26/16 18:14 07/02/16 06:03 5 ML Tramadol HCl (Ultram Tab) 100 mg Q4H PRN PO 06/27/16 13:15 07/27/16 13:14 07/01/16 15:40 100 MG Aripiprazole 15 mg 15 mg QAM PO 06/30/16 09:00 07/30/16 08:59 07/02/16 09:00 15 MG Ceftolozane/ Tazobactam 1.5 gm/ Dextrose 111.4 ml @ 111.4 mls/ hr Q8@0400,1200,2000 IV 07/01/16 12:00 07/11/16 11:59 07/02/16 04:29 111.4 MLS/HR Methylprednisolone Sodium Succinate/ Syringe (Solu-Medrol IV/ Syringe) 0.32 ml @ 1.5 mls/min Q8@0340,1140,1940 IV 07/01/16 11:40 07/31/16 11:39 07/02/16 04:29 1.5 MLS/MIN Levothyroxine Sodium (Synthroid Tab) 25 mcg DAILYBB PO 07/02/16 06:00 08/01/16 05:59 07/02/16 05:42 25 MCG Phenazopyridine HCl (Pyridium Tab) 200 mg Q8H PRN PO 07/01/16 18:15 07/31/16 18:14 07/01/16 18:57 200 MG Nystatin (Mycostatin Crm) 1 appln TID EXT 07/02/16 14:00 08/01/16 13:59 Miconazole Nitrate (Desenex Powder) 1 appln UD PRN EXT 07/02/16 10:45 08/01/16 10:44 07/02/16 10:58 1 APPLN [place] Carbonate ([place] Carbonate Tab) 450 mg QAM PO 07/03/16 09:00 08/02/16 08:59 Laboratory Data Labs: Last 24 Hours Test 07/02/16 05:40 White Blood Count 14.53 K/uL Red Blood Count 4.17 M/uL Hemoglobin 12.8 g/dL Hematocrit 40.5 % Mean Corpuscular Volume 97.1 fL Mean Corpuscular Hemoglobin 30.7 pg Mean Corpuscular Hemoglobin Concent 31.6 g/dl RDW Standard Deviation 52.9 fL RDW Coefficient of Variation 14.9 % Platelet Count 218 K/uL Mean Platelet Volume 10.1 fL Sodium Level 140 mmol/L Potassium Level 3.5 mmol/L Chloride Level 104 mmol/L Carbon Dioxide Level 29 mmol/L Anion Gap 7.0 mmol/L Blood Urea Nitrogen 14 mg/dl Creatinine 0.63 mg/dl Est Creatinine Clear Calc Drug Dose 95.0 ml/min Estimated GFR () 140.5 Estimated GFR (Non- 121.2 BUN/Creatinine Ratio 22.8 Random Glucose 156 mg/dl Calcium Level 8.8 mg/dl [place] Level 0.7 mMOL/L Assessment and Plan 31 y/o female with a history of spina bifida, hydrocephalus 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 Pt has chronic suprapubic cath. Complicated UTI POA Urine culture from 06/24 positive for pseudomonas resistant to carbapenems, Levaquin and Cipro, sensitive to cefepime Repeat urine culture positive for pseudomonas again, sensitivities show intermediate sensitivity to cefepime. ID consulted and recommended Zerbaxa 1.5 grams q8h stopped cefepime today Continue to pretreat abx with Solu-Medrol 20 mg IV prior to administration q8h Renal US WNL Burning on urination, Pyridium did not help, patient likely vaginal/perineal candidiasis based on symptoms, added nystatin cream and a dose of oral diflucan 200 mg Spina Bifida / Hydrocephalus / RETAIL ZONE SPECIALIST shunt with multiple revisions and hydrocephalus. At this time, appears stable Bipolar, Anxiety, schizoaffective disorder with suicidal ideation on admission to psych unit Psych recs noted, planning for care on psych unit once medically stable Continue Abilify 15 mg PO qd, Klonopin 0.5 mg PO BID, hydroxyzine 25 mg PO qd and q8h prn anxiety, lithium 300 mg PO qam and 600 mg PO qhs Asthma Continue Advair 1 puff inh BID and Ventolin 2 puffs inh q4h prn SOB/wheezing DVT prophylaxis Enoxaparin 40 mg SC q24h SUZAN muñoz and Rosalie Code Status Level I, FULL RESUSCITATION STATUS dispo: hopefully d/c to psych next 1-2 days
[2016-07-02] MEDS: hydrOXYzine HCL 25 MG TAB PO SCH (12:18)
[2016-07-02] MEDS: NYSTATIN CR 15 GM TUBE EXT SCH ×2 (13:34→21:00)
[2016-07-02 15:00] VITALS: BP 126/85; PULSE 84; TEMP 36.6; O2SAT 93
[2016-07-02] MEDS: ENOXAPARIN 40 MG/0.4 ML SYR SQ SCH (21:00)
[2016-07-02] MEDS: NORTRIPTYLINE HCL 25 MG CAP PO SCH (21:19)
[2016-07-02] MEDS: RANITIDINE HCL 150 MG TAB PO SCH (21:20)
[2016-07-02 22:48] VITALS: BP 125/77; PULSE 87; TEMP 36.4; O2SAT 94
[2016-07-02] MEDS: ACETAMINOPHEN 325 MG TAB PO PRN (22:53)
[2016-07-03] MEDS: METHYLPREDNISOLONE IV 20 MG in SYRINGE 0 ML IV SCH ×3 (03:58→19:41)
[2016-07-03] MEDS: DEXTROSE 5% IV SCH ×3 (03:58→19:43)
[2016-07-03] MEDS: CEFTOLOZANE IV SCH ×3 (03:58→19:43)
[2016-07-03] MEDS: TAZOBACTAM IV SCH ×3 (03:58→19:43)
[2016-07-03] MEDS: LINACLOTIDE PO SCH (05:41)
[2016-07-03] MEDS: LEVOTHYROXINE 25 MCG TAB PO SCH (05:41)
[2016-07-03 05:45] LABS: HEMATOCRIT 43.3 % (37-47); MEAN CORPUSCULAR HEMOGLOBIN 30.3 pg (25-34); MEAN CORPUSCULAR HGB CONC 30.9 g/dl (32-36); MEAN PLATELET VOLUME 10.1 fL (7.4-10.4); PLATELET COUNT 224 K/uL (130-400); RED BLOOD COUNT 4.42 M/uL (4.2-5.4); WHITE BLOOD COUNT 16.58 K/uL (4.8-10.8)
[2016-07-03 06:15] LABS: BUN/CREATININE RATIO 20.2 (10-20); CREATININE 0.71 mg/dl (0.60-1.20); POTASSIUM 3.4 mmol/L (3.5-5.1)
[2016-07-03 07:23] VITALS: BP 130/82; PULSE 75; TEMP 36.5; O2SAT 94
[2016-07-03] MEDS: FERROUS SULFATE 325 MG TAB PO SCH ×2 (08:44→17:34)
[2016-07-03] MEDS: SENNA 8.6 MG TAB PO PRN (08:44)
[2016-07-03] MEDS: GABAPENTIN 300 MG CAP PO SCH ×3 (08:44→21:12)
[2016-07-03] MEDS: CLONAZEPAM 0.5 MG TAB PO SCH ×2 (08:46→21:09)
[2016-07-03] MEDS: HYOSCYAMINE SULFATE 0.125 MG SL TAB PO SCH ×4 (08:46→21:09)
[2016-07-03] MEDS: LITHIUM CARBONATE 300 MG TAB PO SCH ×2 (08:46→21:12)
[2016-07-03] MEDS: ARIPIprazole TAB 15 MG TAB PO SCH (08:47)
[2016-07-03] MEDS: CHOLECALCIFEROL 1000 INTER.UNIT TAB PO SCH (08:47)
[2016-07-03] MEDS: MULTIVITAMIN TAB PO SCH (08:47)
[2016-07-03] MEDS: PANTOprazole SOD 40 MG TAB PO SCH (08:48)
[2016-07-03] MEDS: NYSTATIN CR 15 GM TUBE EXT SCH ×3 (08:49→21:00)
[2016-07-03] MEDS: FLUTICASONE/SALMETEROL (ADVAIR) 500/50 INH 14 PUFF INH SCH ×2 (10:39→21:08)
[2016-07-03] MEDS: hydrOXYzine HCL 25 MG TAB PO SCH (11:43)
--- NOTE | 2016-07-03 13:11 | Progress Note ---
Subjective Subjective Date of Service: Jul 03, 2016. Pt evaluation today including: conversation w/ patient, physical exam, chart review, review of studies, review of inpatient medication list Notes: burning urinary sensation improved Problem List Medical Problems: (1) Acute pyelonephritis Status: Acute (2) Allergic reaction Status: Acute (3) Allergic reaction Status: Acute (4) Complicated urinary tract infection Status: Acute (5) Gabapentin overdose Status: Acute (6) Intractable headache Status: Acute (7) Low back pain Status: Acute (8) Lower abdominal pain Status: Acute (9) Nausea Status: Acute (10) Right flank pain Status: Acute (11) Right leg pain Status: Acute (12) Schizoaffective disorder, bipolar type Status: Acute (13) Self-harming behavior Status: Acute (14) Shunt malfunction Status: Acute (15) Shunt malfunction Status: Acute (16) Suicidal ideation Status: Acute (17) Suicidal ideation Status: Acute (18) Suprapubic pain Status: Acute (19) Urinary tract infection Status: Acute (20) UTI (urinary tract infection) Status: Acute (21) UTI (urinary tract infection) Status: Acute Review of Systems Constitutional: No fever ENT: No hearing loss Respiratory: No cough Cardiac: No chest pain Abdomen: No pain Female : No dysuria Neurologic: No memory loss Psychiatric: No depression symptoms Endo: No fatigue Skin: No rash Physical Exam Vital Signs Vital Signs Past 24 Hours: Date Time Temp Pulse Resp B/P Pulse Ox O2 Delivery O2 Flow Rate FiO2 07/03/16 08:00 Room Air 07/03/16 07:23 36.5 75 18 130/82 94 Room Air 07/03/16 00:10 Room Air 07/02/16 22:48 36.4 87 16 125/77 94 Room Air 07/02/16 16:15 Room Air 07/02/16 15:00 36.6 84 20 126/85 93 Room Air Physical Exam: General Appearance: WD/WN, no apparent distress Eyes: bilateral eyes normal inspection ENT: hearing grossly normal Neck: supple Respiratory/Chest: chest non-tender Cardiovascular: regular rate, rhythm Abdomen: normal bowel sounds Extremities: no calf tenderness Neurologic/Psychiatric: normal mood/affect Skin: normal color Medications Medications: Current Inpatient Medications Medications (Trade) Dose Ordered Sig/[facility] Route Start Time Stop Time Status Last Admin Dose Admin Enoxaparin Sodium (Lovenox Inj) 40 mg Q24H SQ 06/26/16 21:00 07/26/16 20:59 Acetaminophen (Tylenol Tab) 650 mg Q4H PRN PO 06/26/16 17:30 07/26/16 17:29 07/02/16 22:53 650 MG Al Hydrox/Mg Hydrox/Simethicone (Maalox Max Susp) 15 ml Q4H PRN PO 06/26/16 17:30 07/26/16 17:29 Magnesium Hydroxide (Milk Of Magnesia Susp) 30 ml Q6H PRN PO 06/26/16 17:30 07/26/16 17:29 Polyethylene (Miralax Powder Packet) 17 gm DAILY PRN PO 06/26/16 17:30 07/26/16 17:29 Zolpidem Tartrate (Ambien Tab) 5 mg HSZ PRN PO 06/26/16 17:30 07/26/16 17:29 Ondansetron HCl (Zofran Inj) 4 mg Q6H PRN IV 06/26/16 17:30 07/26/16 17:29 06/28/16 14:27 4 MG Albuterol (Ventolin Hfa Inhaler) 2 puffs Q4 PRN INH 06/26/16 18:00 07/26/16 17:59 Clonazepam (Klonopin Tab) 0.5 mg BID PO 06/26/16 21:00 07/26/16 20:59 07/03/16 08:46 0.5 MG Gabapentin (Neurontin Cap) 300 mg TID PO 06/26/16 21:00 07/26/16 20:59 07/03/16 08:44 300 MG Hydroxyzine HCl (Vistaril Tab) 25 mg QD@1200 PO 06/27/16 12:00 07/27/16 11:59 07/03/16 11:43 25 MG Hyoscyamine Sulfate (Levsin Tab) 0.125 mg QID PO 06/26/16 21:00 07/26/16 20:59 07/03/16 08:46 0.125 MG [place] Carbonate ([place] Carbonate Tab) 600 mg HS PO 06/26/16 21:00 07/26/16 20:59 07/02/16 21:18 600 MG Meclizine HCl (Antivert Tab) 25 mg Q8 PRN PO 06/26/16 18:00 07/26/16 17:59 06/30/16 18:29 25 MG Multivitamins (Multivitamin Tab) 1 tab DAILY PO 06/27/16 09:00 07/27/16 08:59 07/03/16 08:47 1 TAB Nortriptyline HCl (Pamelor Cap) 100 mg HS PO 06/26/16 21:00 07/26/16 20:59 07/02/16 21:19 100 MG Nystatin (Mycostatin Oint) 1 appln UD PRN EXT 06/26/16 18:00 07/26/16 17:59 Nystatin (Mycostatin Powder) 1 appln UD PRN EXT 06/26/16 18:00 07/26/16 17:59 06/29/16 06:23 1 APPLN Ondansetron HCl (Zofran Tab) 4 mg DAILY PRN PO 06/26/16 18:00 07/26/16 17:59 Pantoprazole Sodium (Protonix Tab) 40 mg QAM PO 06/27/16 09:00 07/27/16 08:59 07/03/16 08:48 40 MG Ranitidine HCl (zANTac TAB) 150 mg HS PO 06/26/16 21:00 07/26/16 20:59 07/02/16 21:20 150 MG Senna (Senokot Tab) 8.6 mg DAILY PRN PO 06/26/16 18:00 07/26/16 17:59 07/03/16 08:44 8.6 MG Tramadol HCl (Ultram Tab) 50 mg Q4H PRN PO 06/26/16 18:00 07/26/16 17:59 06/27/16 13:00 50 MG Cholecalciferol (Vitamin D Tab) 2,000 inter.unit DAILY PO 06/27/16 09:00 07/27/16 08:59 07/03/16 08:47 2,000 INTER.UNIT Ferrous Sulfate (Feosol Tab) 325 mg BIDM PO 06/27/16 08:30 07/27/16 08:29 07/03/16 08:44 325 MG Hydroxyzine HCl (Vistaril Tab) 25 mg Q8 PRN PO 06/26/16 18:00 07/26/16 17:59 Linaclotide (Linzess) 290 mcg DAILYBB PO 06/27/16 06:00 07/27/16 05:59 07/03/16 05:41 290 MCG Heparin Sodium (Porcine) (Heparin 100 Unit/ml 5ml Flush) 5 ml PRN PRN IV 06/26/16 18:15 07/26/16 18:14 07/03/16 05:41 5 ML Tramadol HCl (Ultram Tab) 100 mg Q4H PRN PO 06/27/16 13:15 07/27/16 13:14 07/01/16 15:40 100 MG Aripiprazole 15 mg 15 mg QAM PO 06/30/16 09:00 07/30/16 08:59 07/03/16 08:47 15 MG Ceftolozane/ Tazobactam 1.5 gm/ Dextrose 111.4 ml @ 111.4 mls/ hr Q8@0400,1200,2000 IV 07/01/16 12:00 07/11/16 11:59 07/03/16 11:43 111.4 MLS/HR Methylprednisolone Sodium Succinate/ Syringe (Solu-Medrol IV/ Syringe) 0.32 ml @ 1.5 mls/min Q8@0340,1140,1940 IV 07/01/16 11:40 07/31/16 11:39 07/03/16 11:43 1.5 MLS/MIN Levothyroxine Sodium (Synthroid Tab) 25 mcg DAILYBB PO 07/02/16 06:00 08/01/16 05:59 07/03/16 05:41 25 MCG Phenazopyridine HCl (Pyridium Tab) 200 mg Q8H PRN PO 07/01/16 18:15 07/31/16 18:14 07/01/16 18:57 200 MG Nystatin (Mycostatin Crm) 1 appln TID EXT 07/02/16 14:00 08/01/16 13:59 Miconazole Nitrate (Desenex Powder) 1 appln UD PRN EXT 07/02/16 10:45 08/01/16 10:44 07/02/16 10:58 1 APPLN [place] Carbonate ([place] Carbonate Tab) 450 mg QAM PO 07/03/16 09:00 08/02/16 08:59 07/03/16 08:46 450 MG Salmeterol Xinafoate/ Fluticasone (Advair Diskus 500/50 Inh) 1 puff BID INH 07/03/16 21:00 08/02/16 20:59 07/03/16 10:39 1 PUFF Laboratory Data Labs: Last 24 Hours Test 07/03/16 05:15 White Blood Count 16.58 K/uL Red Blood Count 4.42 M/uL Hemoglobin 13.4 g/dL Hematocrit 43.3 % Mean Corpuscular Volume 98.0 fL Mean Corpuscular Hemoglobin 30.3 pg Mean Corpuscular Hemoglobin Concent 30.9 g/dl RDW Standard Deviation 52.2 fL RDW Coefficient of Variation 14.6 % Platelet Count 224 K/uL Mean Platelet Volume 10.1 fL Sodium Level 140 mmol/L Potassium Level 3.4 mmol/L Chloride Level 105 mmol/L Carbon Dioxide Level 25 mmol/L Anion Gap 10.0 mmol/L Blood Urea Nitrogen 14 mg/dl Creatinine 0.71 mg/dl Est Creatinine Clear Calc Drug Dose 84.3 ml/min Estimated GFR () 133.4 Estimated GFR (Non- 115.1 BUN/Creatinine Ratio 20.2 Random Glucose 158 mg/dl Calcium Level 9.0 mg/dl Assessment and Plan 31 y/o female with a history of spina bifida, hydrocephalus 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 Pt has chronic suprapubic cath. Complicated UTI POA Urine culture from 06/24 positive for pseudomonas resistant to carbapenems, Levaquin and Cipro, sensitive to cefepime Repeat urine culture positive for pseudomonas again, sensitivities show intermediate sensitivity to cefepime. ID consulted and recommended Zerbaxa 1.5 grams q8h Continue to pretreat abx with Solu-Medrol 20 mg IV prior to administration q8h Renal US WNL Burning on urination, Pyridium did not help, patient likely vaginal/perineal candidiasis based on symptoms, continue nystatin cream and given a dose of oral diflucan 200 mg Spina Bifida / Hydrocephalus / CUTTING DEPARTMENT SUPERVISOR shunt with multiple revisions and hydrocephalus. At this time, appears stable Bipolar, Anxiety, schizoaffective disorder with suicidal ideation on admission to psych unit Psych recs noted, planning for care on psych unit once medically stable Continue Abilify 15 mg PO qd, Klonopin 0.5 mg PO BID, hydroxyzine 25 mg PO qd and q8h prn anxiety, lithium 300 mg PO qam and 600 mg PO qhs Asthma Continue Advair 1 puff inh BID and Ventolin 2 puffs inh q4h prn SOB/wheezing DVT prophylaxis Enoxaparin 40 mg SC q24h SUZAN muñoz and Rosalie Code Status Level I, FULL RESUSCITATION STATUS dispo: hopefully d/c to psych next 1-2 days
[2016-07-03 15:40] VITALS: O2SAT 98
[2016-07-03 15:50] VITALS: BP 124/78; PULSE 87; TEMP 36.7; O2SAT 98
[2016-07-03] MEDS: TRAMADOL HCL 50 MG TAB PO PRN (19:43)
[2016-07-03] MEDS: ENOXAPARIN 40 MG/0.4 ML SYR SQ SCH (21:00)
[2016-07-03] MEDS: NORTRIPTYLINE HCL 25 MG CAP PO SCH (21:12)
[2016-07-03] MEDS: RANITIDINE HCL 150 MG TAB PO SCH (21:12)
[2016-07-03 22:58] VITALS: BP 120/75; PULSE 83; TEMP 36.6; O2SAT 94
[2016-07-04] MEDS: METHYLPREDNISOLONE IV 20 MG in SYRINGE 0 ML IV SCH ×3 (03:43→19:00)
[2016-07-04] MEDS: TAZOBACTAM IV SCH ×3 (04:05→19:59)
[2016-07-04] MEDS: CEFTOLOZANE IV SCH ×3 (04:05→19:59)
[2016-07-04] MEDS: DEXTROSE 5% IV SCH ×3 (04:05→19:59)
[2016-07-04] MEDS: LEVOTHYROXINE 25 MCG TAB PO SCH (05:34)
[2016-07-04] MEDS: LINACLOTIDE PO SCH (05:34)
[2016-07-04 06:21] LABS: HEMATOCRIT 44.4 % (37-47); MEAN CELL VOLUME 97.8 fL (80-100); MEAN CORPUSCULAR HEMOGLOBIN 30.8 pg (25-34); MEAN CORPUSCULAR HGB CONC 31.5 g/dl (32-36); MEAN PLATELET VOLUME 10.4 fL (7.4-10.4); PLATELET COUNT 211 K/uL (130-400); RED BLOOD COUNT 4.54 M/uL (4.2-5.4); WHITE BLOOD COUNT 16.54 K/uL (4.8-10.8)
[2016-07-04 06:58] LABS: CALCIUM 8.9 mg/dl (8.5-10.1); CREATININE 0.83 mg/dl (0.60-1.20); POTASSIUM 3.2 mmol/L (3.5-5.1)
[2016-07-04 07:39] VITALS: BP 119/76; PULSE 76; TEMP 36.4; O2SAT 93
[2016-07-04] MEDS: CLONAZEPAM 0.5 MG TAB PO SCH ×2 (08:43→20:07)
[2016-07-04] MEDS: GABAPENTIN 300 MG CAP PO SCH ×3 (08:44→20:00)
[2016-07-04] MEDS: FERROUS SULFATE 325 MG TAB PO SCH ×2 (08:45→18:01)
[2016-07-04] MEDS: SENNA 8.6 MG TAB PO PRN (08:45)
[2016-07-04] MEDS: HYOSCYAMINE SULFATE 0.125 MG SL TAB PO SCH ×4 (08:45→20:04)
[2016-07-04] MEDS: FLUTICASONE/SALMETEROL (ADVAIR) 500/50 INH 14 PUFF INH SCH ×2 (08:45→19:59)
[2016-07-04] MEDS: ARIPIprazole TAB 15 MG TAB PO SCH (08:47)
[2016-07-04] MEDS: MULTIVITAMIN TAB PO SCH (08:47)
[2016-07-04] MEDS: CHOLECALCIFEROL 1000 INTER.UNIT TAB PO SCH (08:47)
[2016-07-04] MEDS: PANTOprazole SOD 40 MG TAB PO SCH (08:47)
[2016-07-04] MEDS: LITHIUM CARBONATE 300 MG TAB PO SCH ×2 (08:47→20:02)
[2016-07-04] MEDS: NYSTATIN CR 15 GM TUBE EXT SCH ×3 (08:48→20:03)
[2016-07-04] MEDS: MICONAZOLE NITRATE POWDER 43 GM EXT PRN (08:51)
--- NOTE | 2016-07-04 09:00 | Psychiatric Progress Notes ---
Psychiatric Progress Note Date of Service Jul 04, 2016. Notes ID: Patient reviewed with liaison nurse. Interim progress reviewed. OMAR Winn increased Abilify on 06/29/16. CC: "more down today" HPI: fair visit with parents last pm, able to verbalize to mother when she was getting irritated. States she has a little more pain today and feels more depressed but no SI. No SIB. ROS: suprapubic pain, denies GI side effects, no significant tremor, no further dizziness MSE: alert, cooperative, speech clear, thoughts concrete but reality based, denies SI/HI, still endorsing aud command holm. lithium level 0.7 07/02/16, 150 mg of [place] reintroduced with am dose Imp: schizoaffective disorder--ongoing depression and intermittent aud command holm Plan: continue q15 min checks tolerating syndthroid agreeable to increase in Abilify to 20 mg.
[2016-07-04] MEDS: hydrOXYzine HCL 25 MG TAB PO SCH (11:45)
[2016-07-04 15:30] VITALS: BP 134/83; PULSE 88; TEMP 36.5; O2SAT 95
[2016-07-04 16:30] VITALS: O2SAT 95
[2016-07-04] MEDS ORDERED: POTASSIUM CHLORIDE 10 MEQ TABCR PO STA (17:10)
--- NOTE | 2016-07-04 17:21 | Hospitalist Progress Note ---
Hospitalist Progress Note Date of Service Jul 04, 2016. Subjective Pt evaluation today including: conversation w/ patient, conversation w/ family (Mom), physical exam, chart review, lab review, review of studies, review of inpatient medication list PO Intake: clifford po Voiding: arango catheter in place Feels like her headache is imroving, was constant (and this is how she knows she has a bladder infection) and now is coming and going; also with continued suprapubic pain but improved from previous. Urine is clear today and mom reports it looks much better. Afebrile. No BM in many days. Constitutional: No fever Respiratory: No shortness of breath Cardiovascular: No chest pain Abdomen: + constipation, + pain Psychiatric: + anxiety (but feels depression is improved) Skin: No rash All Other Systems: Reviewed and Negative Objective Vital Signs Date Time Temp Pulse Resp B/P Pulse Ox O2 Delivery O2 Flow Rate FiO2 07/04/16 15:30 36.5 88 18 134/83 95 Room Air 07/04/16 07:55 Room Air 07/04/16 07:39 36.4 76 16 119/76 93 07/03/16 23:25 Room Air 07/03/16 22:58 36.6 83 18 120/75 94 Room Air Physical Exam General Appearance: no apparent distress, + obese Eyes: normal inspection, sclerae normal ENT: hearing grossly normal Neck: trachea midline Respiratory/Chest: lungs clear, normal breath sounds, no respiratory distress, no accessory muscle use Cardiovascular: regular rate, rhythm, no edema, no gallop, no murmur Abdomen: normal bowel sounds, soft, no organomegaly, + pertinent finding (+TTP around suprapubic catheter but skin is without erythema, no drainage) Extremities: normal capillary refill (and 2+ radial pulses), + pertinent finding (bilateral BKAs) Neurologic/Psychiatric: alert, normal mood/affect, oriented x 3 Skin: no rash, + pertinent finding (white cream and powder in groin folds) Laboratory Results Last 24 Hours Test 07/04/16 05:15 White Blood Count 16.54 K/uL Red Blood Count 4.54 M/uL Hemoglobin 14.0 g/dL Hematocrit 44.4 % Mean Corpuscular Volume 97.8 fL Mean Corpuscular Hemoglobin 30.8 pg Mean Corpuscular Hemoglobin Concent 31.5 g/dl RDW Standard Deviation 52.5 fL RDW Coefficient of Variation 14.8 % Platelet Count 211 K/uL Mean Platelet Volume 10.4 fL Sodium Level 139 mmol/L Potassium Level 3.2 mmol/L Chloride Level 103 mmol/L Carbon Dioxide Level 22 mmol/L Anion Gap 14.0 mmol/L Blood Urea Nitrogen 17 mg/dl Creatinine 0.83 mg/dl Est Creatinine Clear Calc Drug Dose 72.1 ml/min Estimated GFR () 110.4 Estimated GFR (Non- 95.3 BUN/Creatinine Ratio 20.0 Random Glucose 179 mg/dl Calcium Level 8.9 mg/dl Assessment and Plan 31 y/o female with a history of spina bifida, hydrocephalus 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 Pt has chronic suprapubic cath. Complicated UTI POA Urine culture from 06/24 positive for pseudomonas resistant to carbapenems, Levaquin and Cipro, sensitive to cefepime Repeat urine culture positive for two different pseudomonas species, sensitivities show intermediate sensitivity to cefepime. ID consulted and recommended Zerbaxa 1.5 grams q8h x 7 more days (started ) Continue to pretreat abx with Solu-Medrol 20 mg IV prior to administration q8h Renal US WNL Change out suprapubic catheter q2 weeks-DUE for changeout this 07/06 and Mom is present and does it routinely at home, patient only wants her mom to do it as she is very skilled at it for many years. Burning sensation suprapubic region--> Pyridium did not help, patient treated for vaginal/perineal candidiasis based on symptoms, continue nystatin cream and received one dose of oral diflucan 200 mg Spina Bifida / Hydrocephalus / DOCUMENT CONTROL ASSOCIATE shunt with multiple revisions and hydrocephalus. At this time, appears stable Bipolar, Anxiety, schizoaffective disorder with suicidal ideation on admission to psych unit Psych recs noted, planning for care on psych unit once medically stable Continue Abilify 20 mg PO qd, Klonopin 0.5 mg PO BID, hydroxyzine 25 mg PO qd and q8h prn anxiety, lithium 450 mg PO qam and 600 mg PO qhs Asthma Continue Advair 1 puff inh BID and Ventolin 2 puffs inh q4h prn SOB/wheezing Constipation-start Miralax DVT prophylaxis Enoxaparin 40 mg SC q24h SUZAN muñoz and SCDs Code Status Level I, FULL RESUSCITATION STATUS dispo: hopefully d/c to psych on 07/07 in the evening or Fri AM after total 7 days IV abx
[2016-07-04] MEDS: POLYETHYLENE (MIRALAX) 17 GM PACK PO SCH (18:59)
[2016-07-04] MEDS: NORTRIPTYLINE HCL 25 MG CAP PO SCH (20:01)
[2016-07-04] MEDS: RANITIDINE HCL 150 MG TAB PO SCH (20:02)
[2016-07-04] MEDS: ENOXAPARIN 40 MG/0.4 ML SYR SQ SCH (20:03)
--- NOTE | 2016-07-04 20:53 | Infectious Disease Progress Nt ---
Progress Note Date of Service Jul 04, 2016. Subjective Pt evaluation today including: conversation w/ patient, physical exam, chart review, lab review, review of studies, conversation w/ groundwater consultant, review of inpatient medication list Slightly better today. Tolerating Zerbaxa. No fever. All Other Systems: Reviewed and Negative Medications Current Inpatient Medications Medications (Trade) Dose Ordered Sig/Brenna Route Start Time Stop Time Status Last Admin Dose Admin Enoxaparin Sodium (Lovenox Inj) 40 mg Q24H SQ 06/26/16 21:00 07/26/16 20:59 Acetaminophen (Tylenol Tab) 650 mg Q4H PRN PO 06/26/16 17:30 07/26/16 17:29 07/02/16 22:53 650 MG Al Hydrox/Mg Hydrox/Simethicone (Maalox Max Susp) 15 ml Q4H PRN PO 06/26/16 17:30 07/26/16 17:29 Magnesium Hydroxide (Milk Of Magnesia Susp) 30 ml Q6H PRN PO 06/26/16 17:30 07/26/16 17:29 Polyethylene (Miralax Powder Packet) 17 gm DAILY PRN PO 06/26/16 17:30 07/26/16 17:29 Zolpidem Tartrate (Ambien Tab) 5 mg HSZ PRN PO 06/26/16 17:30 07/26/16 17:29 Ondansetron HCl (Zofran Inj) 4 mg Q6H PRN IV 06/26/16 17:30 07/26/16 17:29 06/28/16 14:27 4 MG Albuterol (Ventolin Hfa Inhaler) 2 puffs Q4 PRN INH 06/26/16 18:00 07/26/16 17:59 Clonazepam (Klonopin Tab) 0.5 mg BID PO 06/26/16 21:00 07/26/16 20:59 07/04/16 20:07 0.5 MG Gabapentin (Neurontin Cap) 300 mg TID PO 06/26/16 21:00 07/26/16 20:59 07/04/16 20:00 300 MG Hydroxyzine HCl (Vistaril Tab) 25 mg QD@1200 PO 06/27/16 12:00 07/27/16 11:59 07/04/16 11:45 25 MG Hyoscyamine Sulfate (Levsin Tab) 0.125 mg QID PO 06/26/16 21:00 07/26/16 20:59 07/04/16 20:04 0.125 MG [place] Carbonate ([place] Carbonate Tab) 600 mg HS PO 06/26/16 21:00 07/26/16 20:59 07/04/16 20:02 600 MG Meclizine HCl (Antivert Tab) 25 mg Q8 PRN PO 06/26/16 18:00 07/26/16 17:59 06/30/16 18:29 25 MG Multivitamins (Multivitamin Tab) 1 tab DAILY PO 06/27/16 09:00 07/27/16 08:59 07/04/16 08:47 1 TAB Nortriptyline HCl (Pamelor Cap) 100 mg HS PO 06/26/16 21:00 07/26/16 20:59 07/04/16 20:01 100 MG Nystatin (Mycostatin Oint) 1 appln UD PRN EXT 06/26/16 18:00 07/26/16 17:59 Nystatin (Mycostatin Powder) 1 appln UD PRN EXT 06/26/16 18:00 07/26/16 17:59 06/29/16 06:23 1 APPLN Ondansetron HCl (Zofran Tab) 4 mg DAILY PRN PO 06/26/16 18:00 07/26/16 17:59 Pantoprazole Sodium (Protonix Tab) 40 mg QAM PO 06/27/16 09:00 07/27/16 08:59 07/04/16 08:47 40 MG Ranitidine HCl (zANTac TAB) 150 mg HS PO 06/26/16 21:00 07/26/16 20:59 07/04/16 20:02 150 MG Senna (Senokot Tab) 8.6 mg DAILY PRN PO 06/26/16 18:00 07/26/16 17:59 07/04/16 08:45 8.6 MG Tramadol HCl (Ultram Tab) 50 mg Q4H PRN PO 06/26/16 18:00 07/26/16 17:59 06/27/16 13:00 50 MG Cholecalciferol (Vitamin D Tab) 2,000 inter.unit DAILY PO 06/27/16 09:00 07/27/16 08:59 07/04/16 08:47 2,000 INTER.UNIT Ferrous Sulfate (Feosol Tab) 325 mg BIDM PO 06/27/16 08:30 07/27/16 08:29 07/04/16 18:01 325 MG Hydroxyzine HCl (Vistaril Tab) 25 mg Q8 PRN PO 06/26/16 18:00 07/26/16 17:59 Linaclotide (Linzess) 290 mcg DAILYBB PO 06/27/16 06:00 07/27/16 05:59 07/04/16 05:34 290 MCG Heparin Sodium (Porcine) (Heparin 100 Unit/ml 5ml Flush) 5 ml PRN PRN IV 06/26/16 18:15 07/26/16 18:14 07/04/16 13:11 5 ML Tramadol HCl 100 mg 100 mg Q4H PRN PO 06/27/16 13:15 07/27/16 13:14 07/03/16 19:43 100 MG Ceftolozane/ Tazobactam 1.5 gm/ Dextrose 111.4 ml @ 111.4 mls/ hr Q8@0400,1200,2000 IV 07/01/16 12:00 07/11/16 11:59 07/04/16 19:59 111.4 MLS/HR Methylprednisolone Sodium Succinate/ Syringe (Solu-Medrol IV/ Syringe) 0.32 ml @ 1.5 mls/min Q8@0340,1140,1940 IV 07/01/16 11:40 07/31/16 11:39 07/04/16 19:00 1.5 MLS/MIN Levothyroxine Sodium (Synthroid Tab) 25 mcg DAILYBB PO 07/02/16 06:00 08/01/16 05:59 07/04/16 05:34 25 MCG Phenazopyridine HCl (Pyridium Tab) 200 mg Q8H PRN PO 07/01/16 18:15 07/31/16 18:14 07/01/16 18:57 200 MG Nystatin (Mycostatin Crm) 1 appln TID EXT 07/02/16 14:00 08/01/16 13:59 07/04/16 20:03 1 APPLN Miconazole Nitrate (Desenex Powder) 1 appln UD PRN EXT 07/02/16 10:45 2/27/17 10:44 07/04/16 08:51 1 APPLN [place] Carbonate ([place] Carbonate Tab) 450 mg QAM PO 07/03/16 09:00 08/02/16 08:59 07/04/16 08:47 450 MG Salmeterol Xinafoate/ Fluticasone (Advair Diskus 500/50 Inh) 1 puff BID INH 07/03/16 21:00 08/02/16 20:59 07/04/16 19:59 1 PUFF Aripiprazole (Abilify Tab) 20 mg QAM PO 07/05/16 09:00 08/04/16 08:59 Polyethylene (Miralax Powder Packet) 17 gm BID PO 07/04/16 21:00 08/03/16 20:59 07/04/16 18:59 17 GM Objective Vital Signs Date Time Temp Pulse Resp B/P Pulse Ox O2 Delivery O2 Flow Rate FiO2 07/04/16 16:30 95 Room Air 07/04/16 15:30 36.5 88 18 134/83 95 Room Air 07/04/16 07:55 Room Air 07/04/16 07:39 36.4 76 16 119/76 93 07/03/16 23:25 Room Air 07/03/16 22:58 36.6 83 18 120/75 94 Room Air Physical Exam General Appearance: WD/WN, no apparent distress Eyes: normal inspection, sclerae normal ENT: normal ENT inspection, pharynx normal Neck: supple, no adenopathy, trachea midline Respiratory/Chest: lungs clear, normal breath sounds, no respiratory distress Cardiovascular: regular rate, rhythm, no gallop, no murmur Abdomen: normal bowel sounds, soft, no organomegaly, + tenderness (mild) Extremities: non-tender, no calf tenderness Neurologic/Psychiatric: alert, oriented x 3 Skin: normal color, no rash Lymphatic: no adenopathy Laboratory Results Last 24 Hours Test 07/04/16 05:15 White Blood Count 16.54 K/uL Red Blood Count 4.54 M/uL Hemoglobin 14.0 g/dL Hematocrit 44.4 % Mean Corpuscular Volume 97.8 fL Mean Corpuscular Hemoglobin 30.8 pg Mean Corpuscular Hemoglobin Concent 31.5 g/dl RDW Standard Deviation 52.5 fL RDW Coefficient of Variation 14.8 % Platelet Count 211 K/uL Mean Platelet Volume 10.4 fL Sodium Level 139 mmol/L Potassium Level 3.2 mmol/L Chloride Level 103 mmol/L Carbon Dioxide Level 22 mmol/L Anion Gap 14.0 mmol/L Blood Urea Nitrogen 17 mg/dl Creatinine 0.83 mg/dl Est Creatinine Clear Calc Drug Dose 72.1 ml/min Estimated GFR () 110.4 Estimated GFR (Non- 95.3 BUN/Creatinine Ratio 20.0 Random Glucose 179 mg/dl Calcium Level 8.9 mg/dl Assessment and Plan 31-year-old female with spina bifida and paraplegia with history of recurrent urinary tract infections, now with another urinary tract infection with relatively resistant Pseudomonas aeruginosa. Recurrent symptoms despite appropriate therapy, repeat urine growing more resistant Pseudomonas, and as discussed, patient will be continued on IV Zerbaxa for 7 days with concomitant steroids. Will follow.
[2016-07-04 23:13] VITALS: BP 106/62; PULSE 96; TEMP 36.6; O2SAT 95
[2016-07-05] MEDS: METHYLPREDNISOLONE IV 20 MG in SYRINGE 0 ML IV SCH ×3 (04:00→18:48)
[2016-07-05] MEDS: TAZOBACTAM IV SCH ×3 (04:27→20:33)
[2016-07-05] MEDS: CEFTOLOZANE IV SCH ×3 (04:27→20:33)
[2016-07-05] MEDS: DEXTROSE 5% IV SCH ×3 (04:27→20:33)
[2016-07-05] MEDS: LEVOTHYROXINE 25 MCG TAB PO SCH (05:51)
[2016-07-05] MEDS: LINACLOTIDE PO SCH (05:52)
[2016-07-05 06:11] LABS: HEMATOCRIT 42.2 % (37-47); MEAN CELL VOLUME 98.8 fL (80-100); MEAN CORPUSCULAR HEMOGLOBIN 31.4 pg (25-34); MEAN CORPUSCULAR HGB CONC 31.8 g/dl (32-36); MEAN PLATELET VOLUME 10.3 fL (7.4-10.4); PLATELET COUNT 183 K/uL (130-400); RED BLOOD COUNT 4.27 M/uL (4.2-5.4); WHITE BLOOD COUNT 14.27 K/uL (4.8-10.8)
[2016-07-05 06:37] LABS: BUN/CREATININE RATIO 25.9 (10-20); CALCIUM 8.4 mg/dl (8.5-10.1); CREATININE 0.64 mg/dl (0.60-1.20)
[2016-07-05 07:06] VITALS: BP 122/62; PULSE 84; TEMP 36.4; O2SAT 95
[2016-07-05] MEDS: NYSTATIN CR 15 GM TUBE EXT SCH ×3 (09:00→20:34)
[2016-07-05] MEDS: FLUTICASONE/SALMETEROL (ADVAIR) 500/50 INH 14 PUFF INH SCH ×2 (09:35→20:46)
[2016-07-05] MEDS: GABAPENTIN 300 MG CAP PO SCH ×3 (09:36→20:36)
[2016-07-05] MEDS: ARIPIprazole TAB 10 MG TAB PO SCH (09:36)
[2016-07-05] MEDS: POLYETHYLENE (MIRALAX) 17 GM PACK PO SCH ×2 (09:36→20:37)
[2016-07-05] MEDS: LITHIUM CARBONATE 300 MG TAB PO SCH ×2 (09:37→20:46)
[2016-07-05] MEDS: MULTIVITAMIN TAB PO SCH (09:37)
[2016-07-05] MEDS: CHOLECALCIFEROL 1000 INTER.UNIT TAB PO SCH (09:37)
[2016-07-05] MEDS: SENNA 8.6 MG TAB PO PRN (09:38)
[2016-07-05] MEDS: CLONAZEPAM 0.5 MG TAB PO SCH ×2 (09:39→20:45)
[2016-07-05] MEDS: NYSTATIN EXT PRN ×2 (09:39→14:12)
[2016-07-05] MEDS: HYOSCYAMINE SULFATE 0.125 MG SL TAB PO SCH ×4 (09:40→20:45)
[2016-07-05] MEDS: PANTOprazole SOD 40 MG TAB PO SCH (09:40)
[2016-07-05] MEDS: FERROUS SULFATE 325 MG TAB PO SCH ×2 (09:40→18:48)
[2016-07-05] MEDS: TRAMADOL HCL 50 MG TAB PO PRN (11:05)
[2016-07-05] MEDS ORDERED: MAGNESIUM CITRATE 296 ML/BTL PO ONE (14:00)
--- NOTE | 2016-07-05 14:06 | Hospitalist Progress Note ---
Hospitalist Progress Note Date of Service Jul 05, 2016. Subjective Pt evaluation today including: conversation w/ patient, conversation w/ family , physical exam, chart review, lab review, conversation w/ customer service sales consultant (ID), review of inpatient medication list PO Intake: clifford po Voiding: arango catheter in place Still with some suprapubic pain but also says she is very constipated and thinks brett of her pain is from that, feels very bloated. Also with racing thoughts but thinks mood overall is "safe." Afebrile All Other Systems: Reviewed and Negative Objective Vital Signs Date Time Temp Pulse Resp B/P Pulse Ox O2 Delivery O2 Flow Rate FiO2 07/05/16 09:00 Room Air 07/05/16 07:06 36.4 84 12 122/62 95 Room Air 07/04/16 23:55 Room Air 07/04/16 23:13 36.6 96 20 106/62 95 Room Air 07/04/16 16:30 95 Room Air 07/04/16 15:30 36.5 88 18 134/83 95 Room Air Physical Exam General Appearance: WD/WN, no apparent distress, + obese Eyes: normal inspection, sclerae normal ENT: hearing grossly normal Neck: trachea midline Respiratory/Chest: lungs clear, normal breath sounds, no respiratory distress, no accessory muscle use Cardiovascular: regular rate, rhythm, no edema, no gallop, no murmur Abdomen: normal bowel sounds, soft, + tenderness (minimal in lower abd without guarding or rebound) Extremities: non-tender, + pertinent finding (bilat BKA) Neurologic/Psychiatric: alert, normal mood/affect, oriented x 3 Skin: normal color, warm/dry, no rash (and right sided anterior chest port without surrounding erythema) Laboratory Results Last 24 Hours Test 07/05/16 05:30 White Blood Count 14.27 K/uL Red Blood Count 4.27 M/uL Hemoglobin 13.4 g/dL Hematocrit 42.2 % Mean Corpuscular Volume 98.8 fL Mean Corpuscular Hemoglobin 31.4 pg Mean Corpuscular Hemoglobin Concent 31.8 g/dl RDW Standard Deviation 54.2 fL RDW Coefficient of Variation 15.1 % Platelet Count 183 K/uL Mean Platelet Volume 10.3 fL Sodium Level 141 mmol/L Potassium Level 4.0 mmol/L Chloride Level 106 mmol/L Carbon Dioxide Level 27 mmol/L Anion Gap 8.0 mmol/L Blood Urea Nitrogen 17 mg/dl Creatinine 0.64 mg/dl Est Creatinine Clear Calc Drug Dose 93.5 ml/min Estimated GFR () 139.8 Estimated GFR (Non- 120.6 BUN/Creatinine Ratio 25.9 Random Glucose 113 mg/dl Calcium Level 8.4 mg/dl Assessment and Plan 31 y/o female with a history of spina bifida, hydrocephalus 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 Pt has chronic suprapubic cath. Complicated UTI POA Urine culture from 06/24 positive for pseudomonas resistant to carbapenems, Levaquin and Cipro, sensitive to cefepime Repeat urine culture positive for two different pseudomonas species, sensitivities show intermediate sensitivity to cefepime. ID consulted and recommended Zerbaxa 1.5 grams q8h x 7 more days (started ) Continue to pretreat abx with Solu-Medrol 20 mg IV prior to administration q8h Renal US WNL Change out suprapubic catheter q2 weeks-DUE for changeout this Wed 07/06 and Mom is present and does it routinely at home, patient only wants her mom to do it as she is very skilled at it for many years. Burning sensation suprapubic region, most likely secondary to infection--> Pyridium did not help, patient treated for vaginal/perineal candidiasis based on symptoms, continue nystatin cream and received one dose of oral diflucan 200 mg Spina Bifida / Hydrocephalus / OPHTHALMIC TECHNOLOGIST shunt with multiple revisions and hydrocephalus. At this time, appears stable. Bipolar, Anxiety, schizoaffective disorder with suicidal ideation on admission to psych unit Psych recs noted, planning for care on psych unit once medically stable Continue Abilify 20 mg PO qd, Klonopin 0.5 mg PO BID, hydroxyzine 25 mg PO qd and q8h prn anxiety, lithium 450 mg PO qam and 600 mg PO qhs Asthma Continue Advair 1 puff inh BID and Ventolin 2 puffs inh q4h prn SOB/wheezing Constipation-started Miralax -add Mag citrate today DVT prophylaxis Enoxaparin 40 mg SC q24h SUZAN muñoz and SERGIOs Code Status Level I, FULL RESUSCITATION STATUS dispo: hopefully d/c to psych on 07/07 in the evening or Mon AM after total 7 days IV abx
[2016-07-05] MEDS: hydrOXYzine HCL 25 MG TAB PO SCH (14:12)
[2016-07-05 15:40] VITALS: BP 133/79; PULSE 98; TEMP 36.5; O2SAT 93
--- NOTE | 2016-07-05 18:12 | Infectious Disease Progress Nt ---
Progress Note Date of Service Jul 05, 2016. Subjective Pt evaluation today including: conversation w/ patient, physical exam, chart review, lab review, review of studies, conversation w/ systems management consultant, review of inpatient medication list Abdominal pain somewhat better today. Remains afebrile. Continues to tolerate antibiotic without apparent difficulty. No new urinary complaints. All Other Systems: Reviewed and Negative Medications Current Inpatient Medications Medications (Trade) Dose Ordered Sig/Brenna Route Start Time Stop Time Status Last Admin Dose Admin Enoxaparin Sodium (Lovenox Inj) 40 mg Q24H SQ 06/26/16 21:00 07/26/16 20:59 Acetaminophen (Tylenol Tab) 650 mg Q4H PRN PO 06/26/16 17:30 07/26/16 17:29 07/02/16 22:53 650 MG Al Hydrox/Mg Hydrox/Simethicone (Maalox Max Susp) 15 ml Q4H PRN PO 06/26/16 17:30 07/26/16 17:29 Magnesium Hydroxide (Milk Of Magnesia Susp) 30 ml Q6H PRN PO 06/26/16 17:30 07/26/16 17:29 Polyethylene (Miralax Powder Packet) 17 gm DAILY PRN PO 06/26/16 17:30 07/26/16 17:29 Zolpidem Tartrate (Ambien Tab) 5 mg HSZ PRN PO 06/26/16 17:30 07/26/16 17:29 Ondansetron HCl (Zofran Inj) 4 mg Q6H PRN IV 06/26/16 17:30 07/26/16 17:29 06/28/16 14:27 4 MG Albuterol (Ventolin Hfa Inhaler) 2 puffs Q4 PRN INH 06/26/16 18:00 07/26/16 17:59 Clonazepam (Klonopin Tab) 0.5 mg BID PO 06/26/16 21:00 07/26/16 20:59 07/05/16 09:39 0.5 MG Gabapentin (Neurontin Cap) 300 mg TID PO 06/26/16 21:00 07/26/16 20:59 07/05/16 14:12 300 MG Hydroxyzine HCl (Vistaril Tab) 25 mg QD@1200 PO 06/27/16 12:00 07/27/16 11:59 07/05/16 14:12 25 MG Hyoscyamine Sulfate (Levsin Tab) 0.125 mg QID PO 06/26/16 21:00 07/26/16 20:59 07/05/16 17:33 0.125 MG [place] Carbonate ([place] Carbonate Tab) 600 mg HS PO 06/26/16 21:00 07/26/16 20:59 07/04/16 20:02 600 MG Meclizine HCl (Antivert Tab) 25 mg Q8 PRN PO 06/26/16 18:00 07/26/16 17:59 06/30/16 18:29 25 MG Multivitamins (Multivitamin Tab) 1 tab DAILY PO 06/27/16 09:00 07/27/16 08:59 07/05/16 09:37 1 TAB Nortriptyline HCl (Pamelor Cap) 100 mg HS PO 06/26/16 21:00 07/26/16 20:59 07/04/16 20:01 100 MG Nystatin (Mycostatin Oint) 1 appln UD PRN EXT 06/26/16 18:00 07/26/16 17:59 Nystatin (Mycostatin Powder) 1 appln UD PRN EXT 06/26/16 18:00 07/26/16 17:59 07/05/16 14:12 1 APPLN Ondansetron HCl (Zofran Tab) 4 mg DAILY PRN PO 06/26/16 18:00 07/26/16 17:59 Pantoprazole Sodium (Protonix Tab) 40 mg QAM PO 06/27/16 09:00 07/27/16 08:59 07/05/16 09:40 40 MG Ranitidine HCl (zANTac TAB) 150 mg HS PO 06/26/16 21:00 07/26/16 20:59 07/04/16 20:02 150 MG Senna (Senokot Tab) 8.6 mg DAILY PRN PO 06/26/16 18:00 07/26/16 17:59 07/05/16 09:38 8.6 MG Tramadol HCl (Ultram Tab) 50 mg Q4H PRN PO 06/26/16 18:00 07/26/16 17:59 06/27/16 13:00 50 MG Cholecalciferol (Vitamin D Tab) 2,000 inter.unit DAILY PO 06/27/16 09:00 07/27/16 08:59 07/05/16 09:37 2,000 INTER.UNIT Ferrous Sulfate (Feosol Tab) 325 mg BIDM PO 06/27/16 08:30 07/27/16 08:29 07/05/16 09:40 325 MG Hydroxyzine HCl (Vistaril Tab) 25 mg Q8 PRN PO 06/26/16 18:00 07/26/16 17:59 Linaclotide (Linzess) 290 mcg DAILYBB PO 06/27/16 06:00 07/27/16 05:59 07/05/16 05:52 290 MCG Heparin Sodium (Porcine) (Heparin 100 Unit/ml 5ml Flush) 5 ml PRN PRN IV 06/26/16 18:15 07/26/16 18:14 07/05/16 05:52 5 ML Tramadol HCl 100 mg 100 mg Q4H PRN PO 06/27/16 13:15 07/27/16 13:14 07/05/16 11:05 100 MG Ceftolozane/ Tazobactam 1.5 gm/ Dextrose 111.4 ml @ 111.4 mls/ hr Q8@0400,1200,2000 IV 07/01/16 12:00 07/11/16 11:59 07/05/16 14:14 111.4 MLS/HR Methylprednisolone Sodium Succinate/ Syringe (Solu-Medrol IV/ Syringe) 0.32 ml @ 1.5 mls/min Q8@0340,1140,1940 IV 07/01/16 11:40 07/31/16 11:39 07/05/16 14:10 1.5 MLS/MIN Levothyroxine Sodium (Synthroid Tab) 25 mcg DAILYBB PO 07/02/16 06:00 08/01/16 05:59 07/05/16 05:51 25 MCG Phenazopyridine HCl (Pyridium Tab) 200 mg Q8H PRN PO 07/01/16 18:15 07/31/16 18:14 07/01/16 18:57 200 MG Nystatin (Mycostatin Crm) 1 appln TID EXT 07/02/16 14:00 08/01/16 13:59 07/04/16 20:03 1 APPLN Miconazole Nitrate (Desenex Powder) 1 appln UD PRN EXT 07/02/16 10:45 08/01/16 10:44 07/04/16 08:51 1 APPLN [place] Carbonate ([place] Carbonate Tab) 450 mg QAM PO 07/03/16 09:00 08/02/16 08:59 07/05/16 09:37 450 MG Salmeterol Xinafoate/ Fluticasone (Advair Diskus 500/50 Inh) 1 puff BID INH 07/03/16 21:00 08/02/16 20:59 07/05/16 09:35 1 PUFF Aripiprazole (Abilify Tab) 20 mg QAM PO 07/05/16 09:00 08/04/16 08:59 07/05/16 09:36 20 MG Polyethylene (Miralax Powder Packet) 17 gm BID PO 07/04/16 21:00 08/03/16 20:59 07/05/16 09:36 17 GM Objective Vital Signs Date Time Temp Pulse Resp B/P Pulse Ox O2 Delivery O2 Flow Rate FiO2 07/05/16 15:40 36.5 98 18 133/79 93 Room Air 07/05/16 09:00 Room Air 07/05/16 07:06 36.4 84 12 122/62 95 Room Air 07/04/16 23:55 Room Air 07/04/16 23:13 36.6 96 20 106/62 95 Room Air Physical Exam General Appearance: WD/WN, no apparent distress Eyes: normal inspection, EOMI, sclerae normal ENT: normal ENT inspection, hearing grossly normal, pharynx normal Neck: supple, no adenopathy, trachea midline Respiratory/Chest: lungs clear, normal breath sounds, no respiratory distress Cardiovascular: regular rate, rhythm, no gallop, no murmur Abdomen: normal bowel sounds, non tender, soft, no organomegaly Extremities: non-tender, no calf tenderness Neurologic/Psychiatric: alert, oriented x 3 Skin: normal color, no rash Lymphatic: no adenopathy Laboratory Results Last 24 Hours Test 07/05/16 05:30 White Blood Count 14.27 K/uL Red Blood Count 4.27 M/uL Hemoglobin 13.4 g/dL Hematocrit 42.2 % Mean Corpuscular Volume 98.8 fL Mean Corpuscular Hemoglobin 31.4 pg Mean Corpuscular Hemoglobin Concent 31.8 g/dl RDW Standard Deviation 54.2 fL RDW Coefficient of Variation 15.1 % Platelet Count 183 K/uL Mean Platelet Volume 10.3 fL Sodium Level 141 mmol/L Potassium Level 4.0 mmol/L Chloride Level 106 mmol/L Carbon Dioxide Level 27 mmol/L Anion Gap 8.0 mmol/L Blood Urea Nitrogen 17 mg/dl Creatinine 0.64 mg/dl Est Creatinine Clear Calc Drug Dose 93.5 ml/min Estimated GFR () 139.8 Estimated GFR (Non- 120.6 BUN/Creatinine Ratio 25.9 Random Glucose 113 mg/dl Calcium Level 8.4 mg/dl Assessment and Plan 31-year-old female with spina bifida and paraplegia with history of recurrent urinary tract infections, now with another urinary tract infection with relatively resistant Pseudomonas aeruginosa. Recurrent symptoms despite appropriate therapy, repeat urine growing more resistant Pseudomonas, and as discussed, patient will be continued on IV Zerbaxa for 7 days with concomitant steroids. Will follow.
[2016-07-05] MEDS: RANITIDINE HCL 150 MG TAB PO SCH (20:36)
[2016-07-05] MEDS: NORTRIPTYLINE HCL 25 MG CAP PO SCH (20:36)
[2016-07-05] MEDS: ENOXAPARIN 40 MG/0.4 ML SYR SQ SCH (20:37)
[2016-07-05 23:19] VITALS: BP 138/71; PULSE 94; TEMP 36.5; O2SAT 95
[2016-07-06] MEDS: TAZOBACTAM IV SCH ×3 (04:21→20:26)
[2016-07-06] MEDS: CEFTOLOZANE IV SCH ×3 (04:21→20:26)
[2016-07-06] MEDS: DEXTROSE 5% IV SCH ×3 (04:21→20:26)
[2016-07-06] MEDS: METHYLPREDNISOLONE IV 20 MG in SYRINGE 0 ML IV SCH ×3 (04:28→18:33)
[2016-07-06] MEDS: LEVOTHYROXINE 25 MCG TAB PO SCH (05:38)
[2016-07-06] MEDS: LINACLOTIDE PO SCH (05:38)
[2016-07-06 06:33] LABS: HEMATOCRIT 42.4 % (37-47); MEAN CELL VOLUME 98.6 fL (80-100); MEAN CORPUSCULAR HEMOGLOBIN 30.9 pg (25-34); MEAN CORPUSCULAR HGB CONC 31.4 g/dl (32-36); MEAN PLATELET VOLUME 10.2 fL (7.4-10.4); PLATELET COUNT 165 K/uL (130-400); WHITE BLOOD COUNT 14.26 K/uL (4.8-10.8)
[2016-07-06 07:02] LABS: BUN/CREATININE RATIO 19.4 (10-20); CALCIUM 8.7 mg/dl (8.5-10.1); CREATININE 0.78 mg/dl (0.60-1.20); POTASSIUM 3.3 mmol/L (3.5-5.1)
[2016-07-06 07:49] VITALS: BP 127/82; PULSE 66; TEMP 36.4; O2SAT 92
[2016-07-06 08:15] VITALS: O2SAT 92
[2016-07-06] MEDS: FERROUS SULFATE 325 MG TAB PO SCH ×2 (08:55→18:32)
[2016-07-06] MEDS: ARIPIprazole TAB 10 MG TAB PO SCH (08:58)
[2016-07-06] MEDS: HYOSCYAMINE SULFATE 0.125 MG SL TAB PO SCH ×4 (08:59→20:27)
[2016-07-06] MEDS: NYSTATIN CR 15 GM TUBE EXT SCH ×3 (09:00→20:32)
[2016-07-06] MEDS: MULTIVITAMIN TAB PO SCH (09:03)
[2016-07-06] MEDS: POLYETHYLENE (MIRALAX) 17 GM PACK PO SCH ×2 (09:03→18:32)
[2016-07-06] MEDS: GABAPENTIN 300 MG CAP PO SCH ×3 (09:04→20:29)
[2016-07-06] MEDS: PANTOprazole SOD 40 MG TAB PO SCH (09:05)
[2016-07-06] MEDS: CHOLECALCIFEROL 1000 INTER.UNIT TAB PO SCH (09:08)
[2016-07-06] MEDS: NYSTATIN EXT PRN (09:09)
[2016-07-06] MEDS: CLONAZEPAM 0.5 MG TAB PO SCH ×2 (09:36→20:36)
[2016-07-06] MEDS: LITHIUM CARBONATE 300 MG TAB PO SCH ×2 (09:39→20:29)
[2016-07-06] MEDS: FLUTICASONE/SALMETEROL (ADVAIR) 500/50 INH 14 PUFF INH SCH ×2 (09:41→20:31)
[2016-07-06] MEDS ORDERED: POTASSIUM CHLORIDE 20 MEQ TABCR PO STA (11:18)
[2016-07-06] MEDS: hydrOXYzine HCL 25 MG TAB PO SCH (11:54)
[2016-07-06] MEDS: POTASSIUM CHLR 10 MEQ / WTR 10 MEQ in PREMIXED WATER 100 ML IV SCH ×2 (13:46→14:36)
[2016-07-06 15:10] VITALS: BP 125/80; PULSE 82; TEMP 36.5; O2SAT 93
[2016-07-06 16:30] VITALS: O2SAT 95
--- NOTE | 2016-07-06 20:12 | Hospitalist Progress Note ---
Hospitalist Progress Note Date of Service Jul 06, 2016. Subjective Pt evaluation today including: conversation w/ patient, physical exam, chart review, lab review, review of studies, review of inpatient medication list PO Intake: clifford po Voiding: arango catheter in place Still no BM but abd pain is resolved now. Constitutional: No fever Respiratory: No shortness of breath Cardiovascular: No chest pain Abdomen: + constipation, No pain All Other Systems: Reviewed and Negative Objective Vital Signs Date Time Temp Pulse Resp B/P Pulse Ox O2 Delivery O2 Flow Rate FiO2 07/06/16 16:30 95 Room Air 07/06/16 15:10 36.5 82 20 125/80 93 Room Air 07/06/16 08:15 92 Room Air 07/06/16 07:49 36.4 66 16 127/82 92 Room Air 07/05/16 23:45 Room Air 07/05/16 23:19 36.5 94 18 138/71 95 Room Air Physical Exam General Appearance: WD/WN, no apparent distress, + obese Eyes: normal inspection, sclerae normal Neck: trachea midline Respiratory/Chest: lungs clear, normal breath sounds, no respiratory distress, no accessory muscle use Cardiovascular: regular rate, rhythm, no gallop, no murmur Abdomen: normal bowel sounds, non tender, soft, + pertinent finding ( suprapubic catheter in place without surrounding erythema, no drainage around tube) Extremities: + pertinent finding (bilat BKAs) Neurologic/Psychiatric: alert, oriented x 3 Skin: normal color, warm/dry, no rash Laboratory Results Last 24 Hours Test 07/06/16 05:50 White Blood Count 14.26 K/uL Red Blood Count 4.30 M/uL Hemoglobin 13.3 g/dL Hematocrit 42.4 % Mean Corpuscular Volume 98.6 fL Mean Corpuscular Hemoglobin 30.9 pg Mean Corpuscular Hemoglobin Concent 31.4 g/dl RDW Standard Deviation 54.6 fL RDW Coefficient of Variation 15.1 % Platelet Count 165 K/uL Mean Platelet Volume 10.2 fL Sodium Level 141 mmol/L Potassium Level 3.3 mmol/L Chloride Level 106 mmol/L Carbon Dioxide Level 25 mmol/L Anion Gap 10.0 mmol/L Blood Urea Nitrogen 15 mg/dl Creatinine 0.78 mg/dl Est Creatinine Clear Calc Drug Dose 76.7 ml/min Estimated GFR () 119.1 Estimated GFR (Non- 102.7 BUN/Creatinine Ratio 19.4 Random Glucose 130 mg/dl Calcium Level 8.7 mg/dl Assessment and Plan 31 y/o female with a history of spina bifida, 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 Pt has chronic suprapubic cath. Complicated UTI POA Urine culture from 06/24 positive for pseudomonas resistant to carbapenems, Levaquin and Cipro, sensitive to cefepime Repeat urine culture positive for two different pseudomonas species, sensitivities show intermediate sensitivity to cefepime. ID consulted and recommended Zerbaxa 1.5 grams q8h x 7 more days (started ) Continue to pretreat abx with Solu-Medrol 20 mg IV prior to administration q8h Renal US WNL Change out suprapubic catheter q2 weeks-DUE for changeout this 07/06 and Mom is present and does it routinely at home, patient only wants her mom to do it as she is very skilled at it for many years. Burning sensation suprapubic region, most likely secondary to infection--> Pyridium did not help, patient treated for vaginal/perineal candidiasis based on symptoms, continue nystatin cream and received one dose of oral diflucan 200 mg. Pain gone now Spina Bifida / Hydrocephalus / FILM DEVELOPER shunt with multiple revisions and hydrocephalus. At this time, appears stable. Bipolar, Anxiety, schizoaffective disorder with suicidal ideation on admission to psych unit Psych recs noted, planning for care on psych unit once medically stable Continue Abilify 20 mg PO qd, Klonopin 0.5 mg PO BID, hydroxyzine 25 mg PO qd and q8h prn anxiety, lithium 450 mg PO qam and 600 mg PO qhs Asthma Continue Advair 1 puff inh BID and Ventolin 2 puffs inh q4h prn SOB/wheezing Constipation-started Miralax -add Mag citrate today DVT prophylaxis Enoxaparin 40 mg SC q24h SUZAN muñoz and Rosalie Code Status Level I, FULL RESUSCITATION STATUS dispo: hopefully d/c to psych on 07/07 in the evening or Fri AM after total 7 days IV abx
[2016-07-06] MEDS: NORTRIPTYLINE HCL 25 MG CAP PO SCH (20:30)
[2016-07-06] MEDS: RANITIDINE HCL 150 MG TAB PO SCH (20:31)
[2016-07-06] MEDS: ENOXAPARIN 40 MG/0.4 ML SYR SQ SCH (20:31)
--- NOTE | 2016-07-06 22:01 | Infectious Disease Progress Nt ---
Progress Note Date of Service Jul 06, 2016. Subjective Pt evaluation today including: conversation w/ patient, physical exam, chart review, lab review, review of studies, conversation w/ transportation consultant, review of inpatient medication list Abdominal pain better today. No new urinary complaints. Remains afebrile. All Other Systems: Reviewed and Negative Medications Current Inpatient Medications Medications (Trade) Dose Ordered Sig/Brenna Route Start Time Stop Time Status Last Admin Dose Admin Enoxaparin Sodium (Lovenox Inj) 40 mg Q24H SQ 06/26/16 21:00 07/26/16 20:59 Acetaminophen (Tylenol Tab) 650 mg Q4H PRN PO 06/26/16 17:30 07/26/16 17:29 07/02/16 22:53 650 MG Al Hydrox/Mg Hydrox/Simethicone (Maalox Max Susp) 15 ml Q4H PRN PO 06/26/16 17:30 07/26/16 17:29 Magnesium Hydroxide (Milk Of Magnesia Susp) 30 ml Q6H PRN PO 06/26/16 17:30 07/26/16 17:29 Polyethylene (Miralax Powder Packet) 17 gm DAILY PRN PO 06/26/16 17:30 07/26/16 17:29 Zolpidem Tartrate (Ambien Tab) 5 mg HSZ PRN PO 06/26/16 17:30 07/26/16 17:29 Ondansetron HCl (Zofran Inj) 4 mg Q6H PRN IV 06/26/16 17:30 07/26/16 17:29 06/28/16 14:27 4 MG Albuterol (Ventolin Hfa Inhaler) 2 puffs Q4 PRN INH 06/26/16 18:00 07/26/16 17:59 Clonazepam (Klonopin Tab) 0.5 mg BID PO 06/26/16 21:00 07/26/16 20:59 07/06/16 20:36 0.5 MG Gabapentin (Neurontin Cap) 300 mg TID PO 06/26/16 21:00 07/26/16 20:59 07/06/16 20:29 300 MG Hydroxyzine HCl (Vistaril Tab) 25 mg QD@1200 PO 06/27/16 12:00 07/27/16 11:59 07/06/16 11:54 25 MG Hyoscyamine Sulfate (Levsin Tab) 0.125 mg QID PO 06/26/16 21:00 07/26/16 20:59 07/06/16 20:27 0.125 MG [place] Carbonate ([place] Carbonate Tab) 600 mg HS PO 06/26/16 21:00 07/26/16 20:59 07/06/16 20:29 600 MG Meclizine HCl (Antivert Tab) 25 mg Q8 PRN PO 06/26/16 18:00 07/26/16 17:59 06/30/16 18:29 25 MG Multivitamins (Multivitamin Tab) 1 tab DAILY PO 06/27/16 09:00 07/27/16 08:59 07/06/16 09:03 1 TAB Nortriptyline HCl (Pamelor Cap) 100 mg HS PO 06/26/16 21:00 07/26/16 20:59 07/06/16 20:30 100 MG Nystatin (Mycostatin Oint) 1 appln UD PRN EXT 06/26/16 18:00 07/26/16 17:59 Nystatin (Mycostatin Powder) 1 appln UD PRN EXT 06/26/16 18:00 07/26/16 17:59 07/06/16 09:09 1 APPLN Ondansetron HCl (Zofran Tab) 4 mg DAILY PRN PO 06/26/16 18:00 07/26/16 17:59 Pantoprazole Sodium (Protonix Tab) 40 mg QAM PO 06/27/16 09:00 07/27/16 08:59 07/06/16 09:05 40 MG Ranitidine HCl (zANTac TAB) 150 mg HS PO 06/26/16 21:00 07/26/16 20:59 07/06/16 20:31 150 MG Senna (Senokot Tab) 8.6 mg DAILY PRN PO 06/26/16 18:00 07/26/16 17:59 07/05/16 09:38 8.6 MG Tramadol HCl (Ultram Tab) 50 mg Q4H PRN PO 06/26/16 18:00 07/26/16 17:59 06/27/16 13:00 50 MG Cholecalciferol (Vitamin D Tab) 2,000 inter.unit DAILY PO 06/27/16 09:00 07/27/16 08:59 07/06/16 09:08 2,000 INTER.UNIT Ferrous Sulfate (Feosol Tab) 325 mg BIDM PO 06/27/16 08:30 07/27/16 08:29 07/06/16 18:32 325 MG Hydroxyzine HCl (Vistaril Tab) 25 mg Q8 PRN PO 06/26/16 18:00 07/26/16 17:59 Linaclotide (Linzess) 290 mcg DAILYBB PO 06/27/16 06:00 07/27/16 05:59 07/06/16 05:38 290 MCG Heparin Sodium (Porcine) (Heparin 100 Unit/ml 5ml Flush) 5 ml PRN PRN IV 06/26/16 18:15 07/26/16 18:14 07/06/16 06:38 5 ML Tramadol HCl 100 mg 100 mg Q4H PRN PO 06/27/16 13:15 07/27/16 13:14 07/05/16 11:05 100 MG Ceftolozane/ Tazobactam 1.5 gm/ Dextrose 111.4 ml @ 111.4 mls/ hr Q8@0400,1200,2000 IV 07/01/16 12:00 07/11/16 11:59 07/06/16 20:26 111.4 MLS/HR Methylprednisolone Sodium Succinate/ Syringe (Solu-Medrol IV/ Syringe) 0.32 ml @ 1.5 mls/min Q8@0340,1140,1940 IV 07/01/16 11:40 07/31/16 11:39 07/06/16 18:33 1.5 MLS/MIN Levothyroxine Sodium (Synthroid Tab) 25 mcg DAILYBB PO 07/02/16 06:00 08/01/16 05:59 07/06/16 05:38 25 MCG Phenazopyridine HCl (Pyridium Tab) 200 mg Q8H PRN PO 07/01/16 18:15 07/31/16 18:14 07/01/16 18:57 200 MG Nystatin (Mycostatin Crm) 1 appln TID EXT 07/02/16 14:00 08/01/16 13:59 07/06/16 20:32 1 APPLN Miconazole Nitrate (Desenex Powder) 1 appln UD PRN EXT 07/02/16 10:45 08/01/16 10:44 07/04/16 08:51 1 APPLN [place] Carbonate ([place] Carbonate Tab) 450 mg QAM PO 07/03/16 09:00 08/02/16 08:59 07/06/16 09:39 450 MG Salmeterol Xinafoate/ Fluticasone (Advair Diskus 500/50 Inh) 1 puff BID INH 07/03/16 21:00 08/02/16 20:59 07/06/16 20:31 1 PUFF Aripiprazole (Abilify Tab) 20 mg QAM PO 07/05/16 09:00 08/04/16 08:59 07/06/16 08:58 20 MG Polyethylene (Miralax Powder Packet) 17 gm BID PO 07/04/16 21:00 08/03/16 20:59 07/06/16 18:32 17 GM Objective Vital Signs Date Time Temp Pulse Resp B/P Pulse Ox O2 Delivery O2 Flow Rate FiO2 07/06/16 16:30 95 Room Air 07/06/16 15:10 36.5 82 20 125/80 93 Room Air 07/06/16 08:15 92 Room Air 07/06/16 07:49 36.4 66 16 127/82 92 Room Air 07/05/16 23:45 Room Air 07/05/16 23:19 36.5 94 18 138/71 95 Room Air Physical Exam General Appearance: WD/WN, no apparent distress Eyes: normal inspection, sclerae normal ENT: normal ENT inspection, pharynx normal Neck: supple, no adenopathy, trachea midline Respiratory/Chest: chest non-tender, lungs clear, normal breath sounds, no respiratory distress Cardiovascular: regular rate, rhythm, no gallop, no murmur Abdomen: normal bowel sounds, soft, no organomegaly, + tenderness Extremities: non-tender, no calf tenderness Neurologic/Psychiatric: alert, oriented x 3 Skin: normal color, no rash Lymphatic: no adenopathy Laboratory Results Last 24 Hours Test 07/06/16 05:50 White Blood Count 14.26 K/uL Red Blood Count 4.30 M/uL Hemoglobin 13.3 g/dL Hematocrit 42.4 % Mean Corpuscular Volume 98.6 fL Mean Corpuscular Hemoglobin 30.9 pg Mean Corpuscular Hemoglobin Concent 31.4 g/dl RDW Standard Deviation 54.6 fL RDW Coefficient of Variation 15.1 % Platelet Count 165 K/uL Mean Platelet Volume 10.2 fL Sodium Level 141 mmol/L Potassium Level 3.3 mmol/L Chloride Level 106 mmol/L Carbon Dioxide Level 25 mmol/L Anion Gap 10.0 mmol/L Blood Urea Nitrogen 15 mg/dl Creatinine 0.78 mg/dl Est Creatinine Clear Calc Drug Dose 76.7 ml/min Estimated GFR () 119.1 Estimated GFR (Non- 102.7 BUN/Creatinine Ratio 19.4 Random Glucose 130 mg/dl Calcium Level 8.7 mg/dl Assessment and Plan 31-year-old female with spina bifida and paraplegia with history of recurrent urinary tract infections, now with another urinary tract infection with relatively resistant Pseudomonas aeruginosa. Recurrent symptoms despite appropriate therapy, repeat urine growing more resistant Pseudomonas, and as discussed, patient will be continued on IV Zerbaxa for 7 days with concomitant steroids. Will follow.
[2016-07-06 23:07] VITALS: BP 119/70; PULSE 106; TEMP 36.6; O2SAT 96
[2016-07-07] MEDS: LEVOTHYROXINE 25 MCG TAB PO SCH (06:00)
[2016-07-07] MEDS: LINACLOTIDE PO SCH (06:01)
[2016-07-07 06:34] LABS: MEAN CORPUSCULAR HEMOGLOBIN 31.2 pg (25-34); MEAN CORPUSCULAR HGB CONC 31.8 g/dl (32-36); MEAN PLATELET VOLUME 10.2 fL (7.4-10.4); PLATELET COUNT 165 K/uL (130-400); RED BLOOD COUNT 4.49 M/uL (4.2-5.4); WHITE BLOOD COUNT 16.83 K/uL (4.8-10.8)
[2016-07-07 07:06] LABS: BUN/CREATININE RATIO 30.7 (10-20); CALCIUM 8.7 mg/dl (8.5-10.1); CREATININE 0.56 mg/dl (0.60-1.20); MAGNESIUM 2.6 mg/dl (1.8-2.4)
[2016-07-07 07:26] VITALS: BP 131/77; PULSE 87; TEMP 36.7; O2SAT 99
[2016-07-07] MEDS: FERROUS SULFATE 325 MG TAB PO SCH ×2 (08:58→17:23)
[2016-07-07] MEDS: MULTIVITAMIN TAB PO SCH (08:59)
[2016-07-07] MEDS: ARIPIprazole TAB 10 MG TAB PO SCH (08:59)
[2016-07-07] MEDS: CHOLECALCIFEROL 1000 INTER.UNIT TAB PO SCH (09:00)
[2016-07-07] MEDS: NYSTATIN CR 15 GM TUBE EXT SCH ×3 (09:00→21:00)
[2016-07-07] MEDS: HYOSCYAMINE SULFATE 0.125 MG SL TAB PO SCH ×4 (09:00→21:02)
[2016-07-07] MEDS: PANTOprazole SOD 40 MG TAB PO SCH (09:00)
[2016-07-07] MEDS: LITHIUM CARBONATE 300 MG TAB PO SCH ×2 (09:03→21:01)
[2016-07-07] MEDS: POLYETHYLENE (MIRALAX) 17 GM PACK PO SCH ×2 (09:03→21:04)
[2016-07-07] MEDS: FLUTICASONE/SALMETEROL (ADVAIR) 500/50 INH 14 PUFF INH SCH ×2 (09:04→21:00)
[2016-07-07] MEDS: NYSTATIN EXT PRN ×2 (09:05→21:10)
[2016-07-07] MEDS: CLONAZEPAM 0.5 MG TAB PO SCH ×2 (09:10→21:09)
[2016-07-07] MEDS: GABAPENTIN 300 MG CAP PO SCH ×3 (10:46→21:05)
[2016-07-07] MEDS: METHYLPREDNISOLONE IV 20 MG in SYRINGE 0 ML IV SCH ×2 (10:50→17:23)
[2016-07-07] MEDS: TAZOBACTAM IV SCH ×2 (11:23→18:02)
[2016-07-07] MEDS: CEFTOLOZANE IV SCH ×2 (11:23→18:02)
[2016-07-07] MEDS: DEXTROSE 5% IV SCH ×2 (11:23→18:02)
[2016-07-07] MEDS: hydrOXYzine HCL 25 MG TAB PO SCH (11:25)
--- NOTE | 2016-07-07 15:27 | Hospitalist Progress Note ---
Hospitalist Progress Note Date of Service Jul 07, 2016. Subjective Pt evaluation today including: conversation w/ patient, conversation w/ family , physical exam, chart review, lab review, review of inpatient medication list Voiding: arango catheter in place Had a couple small pieces of stool come out now and mom tried to perform manual disimpaction. Pt wants to try suppository but has trouble holding it in. Afebrile. Pharmacy did run out of her abx this AM and so AM dose was delayed by 7 hrs. Spoke to methods time analysthospital nurse liaison about plan for d/c to inpt unit tomorrow. Constitutional: No fever Respiratory: No shortness of breath Cardiovascular: No chest pain Abdomen: No pain All Other Systems: Reviewed and Negative Objective Vital Signs Date Time Temp Pulse Resp B/P Pulse Ox O2 Delivery O2 Flow Rate FiO2 07/07/16 12:27 Room Air 07/07/16 07:26 36.7 87 12 131/77 99 Room Air 07/07/16 07:15 Room Air 07/07/16 00:40 Room Air 07/06/16 23:07 36.6 106 16 119/70 96 Room Air 07/06/16 16:30 95 Room Air Physical Exam General Appearance: WD/WN, no apparent distress, + obese Eyes: normal inspection, sclerae normal Respiratory/Chest: lungs clear, normal breath sounds, no respiratory distress, no accessory muscle use Cardiovascular: regular rate, rhythm, no gallop, no murmur Abdomen: normal bowel sounds, non tender, soft Neurologic/Psychiatric: alert, normal mood/affect, oriented x 3 Skin: normal color, warm/dry, no rash Laboratory Results Last 24 Hours Test 07/07/16 05:55 White Blood Count 16.83 K/uL Red Blood Count 4.49 M/uL Hemoglobin 14.0 g/dL Hematocrit 44.0 % Mean Corpuscular Volume 98.0 fL Mean Corpuscular Hemoglobin 31.2 pg Mean Corpuscular Hemoglobin Concent 31.8 g/dl RDW Standard Deviation 54.4 fL RDW Coefficient of Variation 15.2 % Platelet Count 165 K/uL Mean Platelet Volume 10.2 fL Sodium Level 140 mmol/L Potassium Level 4.0 mmol/L Chloride Level 101 mmol/L Carbon Dioxide Level 32 mmol/L Anion Gap 7.0 mmol/L Blood Urea Nitrogen 17 mg/dl Creatinine 0.56 mg/dl Est Creatinine Clear Calc Drug Dose 106.8 ml/min Estimated GFR () 146.0 Estimated GFR (Non- 126.0 BUN/Creatinine Ratio 30.7 Random Glucose 97 mg/dl Calcium Level 8.7 mg/dl Magnesium Level 2.6 mg/dl Assessment and Plan 31 y/o female with a history of spina bifida, hydrocephalus 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 Pt has chronic suprapubic cath. Complicated UTI POA Urine culture from 06/24 positive for pseudomonas resistant to carbapenems, Levaquin and Cipro, sensitive to cefepime Repeat urine culture positive for two different pseudomonas species, sensitivities show intermediate sensitivity to cefepime on one of them. ID consulted and recommended Zerbaxa 1.5 grams q8h x 7 more days (started ), last dose 10 AM on 07/08/16 Continue to pretreat abx with Solu-Medrol 20 mg IV prior to administration q8h Renal US WNL Change out suprapubic catheter q2 weeks-last changeout was 07/06 and Mom is present and does it routinely at home, patient only wants her mom to do it as she is very skilled at it for many years. 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 At this time, appears stable. Bipolar, Anxiety, schizoaffective disorder with suicidal ideation on admission to psych unit Psych recs noted, planning for care on psych unit once medically stable--> tomorrow if private room available given MRSA status Continue Abilify 20 mg PO qd, Klonopin 0.5 mg PO BID, hydroxyzine 25 mg PO qd and q8h prn anxiety, lithium 450 mg PO qam and 600 mg PO qhs Asthma Continue Advair 1 puff inh BID and Ventolin 2 puffs inh q4h prn SOB/wheezing Constipation-started Miralax bid -took Mag citrate bottle on 07/06 -try bisacodyl suppos today DVT prophylaxis Enoxaparin 40 mg SC q24h SUZAN muñoz and SCDs Code Status Level I, FULL RESUSCITATION STATUS dispo: d/c to psych on 07/08
[2016-07-07] MEDS ORDERED: BISACODYL 10 MG SUPP PR ONE (15:30)
[2016-07-07 16:28] VITALS: BP 123/77; PULSE 94; PULSE 99; TEMP 36.7; O2SAT 96
--- NOTE | 2016-07-07 19:47 | Infectious Disease Progress Nt ---
Progress Note Date of Service Jul 07, 2016. Subjective Pt evaluation today including: conversation w/ patient, physical exam, chart review, lab review, review of studies, conversation w/ franchise business consultant, review of inpatient medication list no new urinary complaints today. Remains afebrile cornel slight delay in administration of antibiotics due to availability. All Other Systems: Reviewed and Negative Medications Current Inpatient Medications Medications (Trade) Dose Ordered Sig/Brenna Route Start Time Stop Time Status Last Admin Dose Admin Enoxaparin Sodium (Lovenox Inj) 40 mg Q24H SQ 06/26/16 21:00 07/26/16 20:59 Acetaminophen (Tylenol Tab) 650 mg Q4H PRN PO 06/26/16 17:30 07/26/16 17:29 07/02/16 22:53 650 MG Al Hydrox/Mg Hydrox/Simethicone (Maalox Max Susp) 15 ml Q4H PRN PO 06/26/16 17:30 07/26/16 17:29 Magnesium Hydroxide (Milk Of Magnesia Susp) 30 ml Q6H PRN PO 06/26/16 17:30 07/26/16 17:29 Polyethylene (Miralax Powder Packet) 17 gm DAILY PRN PO 06/26/16 17:30 07/26/16 17:29 Zolpidem Tartrate (Ambien Tab) 5 mg HSZ PRN PO 06/26/16 17:30 07/26/16 17:29 Ondansetron HCl (Zofran Inj) 4 mg Q6H PRN IV 06/26/16 17:30 07/26/16 17:29 06/28/16 14:27 4 MG Albuterol (Ventolin Hfa Inhaler) 2 puffs Q4 PRN INH 06/26/16 18:00 07/26/16 17:59 Clonazepam (Klonopin Tab) 0.5 mg BID PO 06/26/16 21:00 07/26/16 20:59 07/07/16 09:10 0.5 MG Gabapentin (Neurontin Cap) 300 mg TID PO 06/26/16 21:00 07/26/16 20:59 07/07/16 12:41 300 MG Hydroxyzine HCl (Vistaril Tab) 25 mg QD@1200 PO 06/27/16 12:00 07/27/16 11:59 07/07/16 11:25 25 MG Hyoscyamine Sulfate (Levsin Tab) 0.125 mg QID PO 06/26/16 21:00 07/26/16 20:59 07/07/16 17:24 0.125 MG [place] Carbonate ([place] Carbonate Tab) 600 mg HS PO 06/26/16 21:00 07/26/16 20:59 07/06/16 20:29 600 MG Meclizine HCl (Antivert Tab) 25 mg Q8 PRN PO 06/26/16 18:00 07/26/16 17:59 06/30/16 18:29 25 MG Multivitamins (Multivitamin Tab) 1 tab DAILY PO 06/27/16 09:00 07/27/16 08:59 07/07/16 08:59 1 TAB Nortriptyline HCl (Pamelor Cap) 100 mg HS PO 06/26/16 21:00 07/26/16 20:59 07/06/16 20:30 100 MG Nystatin (Mycostatin Oint) 1 appln UD PRN EXT 06/26/16 18:00 07/26/16 17:59 Nystatin (Mycostatin Powder) 1 appln UD PRN EXT 06/26/16 18:00 07/26/16 17:59 07/07/16 09:05 1 APPLN Ondansetron HCl (Zofran Tab) 4 mg DAILY PRN PO 06/26/16 18:00 07/26/16 17:59 Pantoprazole Sodium (Protonix Tab) 40 mg QAM PO 06/27/16 09:00 07/27/16 08:59 07/07/16 09:00 40 MG Ranitidine HCl (zANTac TAB) 150 mg HS PO 06/26/16 21:00 07/26/16 20:59 07/06/16 20:31 150 MG Senna (Senokot Tab) 8.6 mg DAILY PRN PO 06/26/16 18:00 07/26/16 17:59 07/05/16 09:38 8.6 MG Tramadol HCl (Ultram Tab) 50 mg Q4H PRN PO 06/26/16 18:00 07/26/16 17:59 06/27/16 13:00 50 MG Cholecalciferol (Vitamin D Tab) 2,000 inter.unit DAILY PO 06/27/16 09:00 07/27/16 08:59 07/07/16 09:00 2,000 INTER.UNIT Ferrous Sulfate (Feosol Tab) 325 mg BIDM PO 06/27/16 08:30 07/27/16 08:29 07/07/16 17:23 325 MG Hydroxyzine HCl (Vistaril Tab) 25 mg Q8 PRN PO 06/26/16 18:00 07/26/16 17:59 Linaclotide (Linzess) 290 mcg DAILYBB PO 06/27/16 06:00 07/27/16 05:59 07/07/16 06:01 290 MCG Heparin Sodium (Porcine) (Heparin 100 Unit/ml 5ml Flush) 5 ml PRN PRN IV 06/26/16 18:15 07/26/16 18:14 07/07/16 12:43 5 ML Tramadol HCl (Ultram Tab) 100 mg Q4H PRN PO 06/27/16 13:15 07/27/16 13:14 07/05/16 11:05 100 MG Levothyroxine Sodium (Synthroid Tab) 25 mcg DAILYBB PO 07/02/16 06:00 08/01/16 05:59 07/07/16 06:00 25 MCG Phenazopyridine HCl (Pyridium Tab) 200 mg Q8H PRN PO 07/01/16 18:15 07/31/16 18:14 07/01/16 18:57 200 MG Nystatin (Mycostatin Crm) 1 appln TID EXT 07/02/16 14:00 08/01/16 13:59 07/06/16 20:32 1 APPLN Miconazole Nitrate (Desenex Powder) 1 appln UD PRN EXT 07/02/16 10:45 08/01/16 10:44 07/04/16 08:51 1 APPLN [place] Carbonate ([place] Carbonate Tab) 450 mg QAM PO 07/03/16 09:00 08/02/16 08:59 07/07/16 09:03 450 MG Salmeterol Xinafoate/ Fluticasone (Advair Diskus 500/50 Inh) 1 puff BID INH 07/03/16 21:00 08/02/16 20:59 07/07/16 09:04 1 PUFF Aripiprazole (Abilify Tab) 20 mg QAM PO 07/05/16 09:00 08/04/16 08:59 07/07/16 08:59 20 MG Polyethylene 17 gm 17 gm BID PO 07/04/16 21:00 08/03/16 20:59 07/07/16 09:03 17 GM Ceftolozane/ Tazobactam 1.5 gm/ Dextrose 111.4 ml @ 111.4 mls/ hr Q8@0200,1000,1800 IV 07/07/16 10:43 07/11/16 10:42 07/07/16 18:02 111.4 MLS/HR Methylprednisolone Sodium Succinate/ Syringe (Solu-Medrol IV/ Syringe) 0.32 ml @ 1.5 mls/min Q8@0140,0940,1740 IV 07/07/16 10:45 07/11/16 10:44 07/07/16 17:23 1.5 MLS/MIN Objective Vital Signs Date Time Temp Pulse Resp B/P Pulse Ox O2 Delivery O2 Flow Rate FiO2 07/07/16 16:28 36.7 94 16 123/77 96 Room Air 07/07/16 12:27 Room Air 07/07/16 07:26 36.7 87 12 131/77 99 Room Air 07/07/16 07:15 Room Air 07/07/16 00:40 Room Air 07/06/16 23:07 36.6 106 16 119/70 96 Room Air Physical Exam General Appearance: WD/WN, no apparent distress, + obese ( a.m. the way) Eyes: normal inspection, EOMI, sclerae normal ( he has) ENT: normal ENT inspection, pharynx normal Neck: supple, no adenopathy, trachea midline Respiratory/Chest: lungs clear, normal breath sounds, no respiratory distress Cardiovascular: regular rate, rhythm, no gallop, no murmur Abdomen: normal bowel sounds, non tender, soft, no organomegaly Extremities: non-tender, no calf tenderness Neurologic/Psychiatric: alert, oriented x 3 Skin: normal color, no rash Lymphatic: no adenopathy Laboratory Results Last 24 Hours Test 07/07/16 05:55 White Blood Count 16.83 K/uL Red Blood Count 4.49 M/uL Hemoglobin 14.0 g/dL Hematocrit 44.0 % Mean Corpuscular Volume 98.0 fL Mean Corpuscular Hemoglobin 31.2 pg Mean Corpuscular Hemoglobin Concent 31.8 g/dl RDW Standard Deviation 54.4 fL RDW Coefficient of Variation 15.2 % Platelet Count 165 K/uL Mean Platelet Volume 10.2 fL Sodium Level 140 mmol/L Potassium Level 4.0 mmol/L Chloride Level 101 mmol/L Carbon Dioxide Level 32 mmol/L Anion Gap 7.0 mmol/L Blood Urea Nitrogen 17 mg/dl Creatinine 0.56 mg/dl Est Creatinine Clear Calc Drug Dose 106.8 ml/min Estimated GFR () 146.0 Estimated GFR (Non- 126.0 BUN/Creatinine Ratio 30.7 Random Glucose 97 mg/dl Calcium Level 8.7 mg/dl Magnesium Level 2.6 mg/dl Assessment and Plan 31-year-old female with spina bifida and paraplegia with history of recurrent urinary tract infections, now with another urinary tract infection with relatively resistant Pseudomonas aeruginosa. Recurrent symptoms despite appropriate therapy, repeat urine growing more resistant Pseudomonas, and as discussed, patient will be continued on IV Zerbaxa for 7 days with concomitant steroids. Will follow.
[2016-07-07] MEDS: ENOXAPARIN 40 MG/0.4 ML SYR SQ SCH (21:00)
[2016-07-07] MEDS: NORTRIPTYLINE HCL 25 MG CAP PO SCH (21:02)
[2016-07-07] MEDS: RANITIDINE HCL 150 MG TAB PO SCH (21:05)
[2016-07-07] MEDS: SENNA 8.6 MG TAB PO PRN (21:11)
[2016-07-07 22:59] VITALS: BP 121/80; PULSE 106; TEMP 36.7; O2SAT 94
[2016-07-08] MEDS: METHYLPREDNISOLONE IV 20 MG in SYRINGE 0 ML IV SCH ×2 (02:28→09:57)
[2016-07-08] MEDS: CEFTOLOZANE IV SCH ×2 (02:29→10:47)
[2016-07-08] MEDS: TAZOBACTAM IV SCH ×2 (02:29→10:47)
[2016-07-08] MEDS: DEXTROSE 5% IV SCH ×2 (02:29→10:47)
[2016-07-08] MEDS: LINACLOTIDE PO SCH (05:37)
[2016-07-08] MEDS: LEVOTHYROXINE 25 MCG TAB PO SCH (05:37)
[2016-07-08 06:31] LABS: HEMATOCRIT 45.4 % (37-47); MEAN CELL VOLUME 97.8 fL (80-100); MEAN CORPUSCULAR HGB CONC 31.7 g/dl (32-36); MEAN PLATELET VOLUME 9.9 fL (7.4-10.4); PLATELET COUNT 176 K/uL (130-400); RED BLOOD COUNT 4.64 M/uL (4.2-5.4); WHITE BLOOD COUNT 17.52 K/uL (4.8-10.8)
[2016-07-08 07:00] VITALS: BP 126/82; PULSE 70; TEMP 36.5; O2SAT 92
[2016-07-08 07:07] LABS: BUN/CREATININE RATIO 26.5 (10-20); CALCIUM 8.9 mg/dl (8.5-10.1); CREATININE 0.74 mg/dl (0.60-1.20); POTASSIUM 3.7 mmol/L (3.5-5.1)
[2016-07-08] MEDS: POLYETHYLENE (MIRALAX) 17 GM PACK PO SCH (09:21)
[2016-07-08] MEDS: CLONAZEPAM 0.5 MG TAB PO SCH (09:23)
[2016-07-08] MEDS: GABAPENTIN 300 MG CAP PO SCH ×2 (09:24→13:11)
[2016-07-08] MEDS: FERROUS SULFATE 325 MG TAB PO SCH (09:24)
[2016-07-08] MEDS: LITHIUM CARBONATE 300 MG TAB PO SCH (09:26)
[2016-07-08] MEDS: ARIPIprazole TAB 10 MG TAB PO SCH (09:27)
[2016-07-08] MEDS: MULTIVITAMIN TAB PO SCH (09:28)
[2016-07-08] MEDS: HYOSCYAMINE SULFATE 0.125 MG SL TAB PO SCH ×2 (09:28→13:11)
[2016-07-08] MEDS: PANTOprazole SOD 40 MG TAB PO SCH (09:28)
[2016-07-08] MEDS: CHOLECALCIFEROL 1000 INTER.UNIT TAB PO SCH (09:29)
[2016-07-08] MEDS: FLUTICASONE/SALMETEROL (ADVAIR) 500/50 INH 14 PUFF INH SCH (09:30)
[2016-07-08] MEDS ORDERED: ABL10 PO (10:17)
[2016-07-08] MEDS ORDERED: MCTP EXT (10:17)
[2016-07-08] MEDS ORDERED: MOMLX PO (10:17)
[2016-07-08] MEDS ORDERED: LTH300T PO (10:17)
[2016-07-08] MEDS ORDERED: MAGN1SOL7 PO (10:17)
[2016-07-08] MEDS ORDERED: DOCU-105 PO (10:17)
[2016-07-08] MEDS ORDERED: SYN25 PO (10:17)
[2016-07-08] MEDS ORDERED: MRLP17 PO (10:17)
[2016-07-08] MEDS ORDERED: SENN8.6T13 PO (10:17)
--- NOTE | 2016-07-08 10:20 | Discharge Instructions ---
Discharge Instructions Admission Reason for Admission: UTI Discharge Discharge Diagnosis / Problem: Complicated UTI Discharge Goals Goal(s): Improve disease control, Therapeutic intervention Activity Recommendations Activity Limitations: resume your previous activity . Instructions / Follow-Up Instructions / Follow-Up You were admitted with a resistant UTI due to your indwelling suprapubic [place] catheter. You were treated with IV antibiotics for 7 days. You no longer need antibiotics. Your Meade catheter should continue to be changed out every 2 weeks with the next change out due on Mon07/21/16. You are being discharged to home as you have been improving from a Mental Health perspective as well. Please follow up with Dr. Lea, your PCP, within 1 week after discharge. Please follow up with your Mental Health Providers as scheduled as well. Current Hospital Diet Patient's current hospital diet: Regular Diet Discharge Diet Recommended Diet: Regular Diet Procedures Procedures Performed: Renal Ultrasound Pending Studies Studies pending at discharge: no Laboratory Results Hemoglobin A1c Test 06/27/16 06:05 Range/Units Estimated Average Glucose 85 mg/dl Hemoglobin A1c 4.6 4.5-5.6 % Lipid Panel Test 06/26/16 06:20 Range/Units Triglycerides Level 135 0-150 mg/dl Cholesterol Level 190 0-200 mg/dl HDL Cholesterol 53 mg/dl Cholesterol/HDL Ratio 3.6 LDL Cholesterol, Calculated 110 mg/dl Medical Emergencies . Who to Call and When: Medical Emergencies: If at any time you feel your situation is an emergency, please call 911 immediately. . Non-Emergent Contact Non-Emergency issues call your: Primary Care Provider Call Non-Emergent contact if: you have a fever, your pain is not controlled, your pain is worsening, your pain is unusual for you, your pain is concerning you, you have any medication questions . . "Provider Documentation" section prepared by Cheryle Masterson. VTE Core Measure Inpt VTE Proph given/why not?: Enoxaparin (Lovenox)SQ
[2016-07-08] MEDS ORDERED: ARIP20TA4 PO (11:02)
[2016-07-08] MEDS ORDERED: LITH1TAB PO (11:02)
--- NOTE | 2016-07-08 12:02 | Psychiatric Progress Notes ---
Psychiatric Progress Note Date of Service Jul 08, 2016. Notes ID: Patient reviewed with liaison nurse. Interim progress reviewed. CC: "I'm ready to go home" HPI: denies urges to self injure, feels her mood has dramatically improved over past 24-48 hours, she credits synthroid for helping her energy and reports that her aud holm are at baseline meaning intermittent mumbling but no command holm and they are not distressing to her. She has multiple plans on how to cope with them. She states yesterday was a good day and she did not experience SI. ROS: constipation MSE: alert, cooperative, speech clear, thoughts concrete but reality based, denies SI/HI, denies holm and did not appear to be responding to internal stimuli lithium level 0.7 07/02/16, 150 mg of [place] added back to am dose Imp: schizoaffective disorder--stable for discharge to outpatient level of care Plan: case reviewed with Dr. Masterson, liaison to confirm f/u appts continue Abilify 20 mg daily and lithium 450 mg am and 600 mg hs (only gave rx for am dose of lithium as pm dose unchanged), 2 new psych meds sent electronically synthroid script appears to have been printed by Dr. Masterson
[2016-07-08] MEDS: hydrOXYzine HCL 25 MG TAB PO SCH (13:12)
[2016-07-08 14:47] VITALS: BP 126/82; PULSE 70; TEMP 36.5; O2SAT 92
[2016-07-08] MEDS ORDERED: LEVOPOW36 PO (15:52)
--- NOTE | 2016-07-08 15:59 | Infectious Disease Progress Nt ---
Progress Note Date of Service Jul 08, 2016. Subjective Pt evaluation today including: conversation w/ patient, physical exam, chart review, lab review, review of studies, conversation w/ organizational research consultant, review of inpatient medication list Patient has completed a planned course of IV therapy for her Pseudomonas urinary tract infection. No new urinary complaints. Anticipating discharge. Remains afebrile. All Other Systems: Reviewed and Negative Medications Current Inpatient Medications Medications (Trade) Dose Ordered Sig/Brenna Route Start Time Stop Time Status Last Admin Dose Admin Enoxaparin Sodium (Lovenox Inj) 40 mg Q24H SQ 06/26/16 21:00 07/26/16 20:59 Acetaminophen (Tylenol Tab) 650 mg Q4H PRN PO 06/26/16 17:30 07/26/16 17:29 07/02/16 22:53 650 MG Al Hydrox/Mg Hydrox/Simethicone (Maalox Max Susp) 15 ml Q4H PRN PO 06/26/16 17:30 07/26/16 17:29 Magnesium Hydroxide (Milk Of Magnesia Susp) 30 ml Q6H PRN PO 06/26/16 17:30 07/26/16 17:29 Polyethylene (Miralax Powder Packet) 17 gm DAILY PRN PO 06/26/16 17:30 07/26/16 17:29 Zolpidem Tartrate (Ambien Tab) 5 mg HSZ PRN PO 06/26/16 17:30 07/26/16 17:29 Ondansetron HCl (Zofran Inj) 4 mg Q6H PRN IV 06/26/16 17:30 07/26/16 17:29 06/28/16 14:27 4 MG Albuterol (Ventolin Hfa Inhaler) 2 puffs Q4 PRN INH 06/26/16 18:00 07/26/16 17:59 Clonazepam (Klonopin Tab) 0.5 mg BID PO 06/26/16 21:00 07/26/16 20:59 07/08/16 09:23 0.5 MG Gabapentin (Neurontin Cap) 300 mg TID PO 06/26/16 21:00 07/26/16 20:59 07/08/16 13:11 300 MG Hydroxyzine HCl (Vistaril Tab) 25 mg QD@1200 PO 06/27/16 12:00 07/27/16 11:59 2/3/17 13:12 25 MG Hyoscyamine Sulfate (Levsin Tab) 0.125 mg QID PO 06/26/16 21:00 07/26/16 20:59 07/08/16 13:11 0.125 MG [place] Carbonate ([place] Carbonate Tab) 600 mg HS PO 06/26/16 21:00 07/26/16 20:59 07/07/16 21:01 600 MG Meclizine HCl (Antivert Tab) 25 mg Q8 PRN PO 06/26/16 18:00 07/26/16 17:59 06/30/16 18:29 25 MG Multivitamins (Multivitamin Tab) 1 tab DAILY PO 06/27/16 09:00 07/27/16 08:59 07/08/16 09:28 1 TAB Nortriptyline HCl (Pamelor Cap) 100 mg HS PO 06/26/16 21:00 07/26/16 20:59 07/07/16 21:02 100 MG Nystatin (Mycostatin Oint) 1 appln UD PRN EXT 06/26/16 18:00 07/26/16 17:59 Nystatin (Mycostatin Powder) 1 appln UD PRN EXT 06/26/16 18:00 07/26/16 17:59 07/07/16 21:10 1 APPLN Ondansetron HCl (Zofran Tab) 4 mg DAILY PRN PO 06/26/16 18:00 07/26/16 17:59 Pantoprazole Sodium (Protonix Tab) 40 mg QAM PO 06/27/16 09:00 07/27/16 08:59 07/08/16 09:28 40 MG Ranitidine HCl (zANTac TAB) 150 mg HS PO 06/26/16 21:00 07/26/16 20:59 07/07/16 21:05 150 MG Senna (Senokot Tab) 8.6 mg DAILY PRN PO 06/26/16 18:00 07/26/16 17:59 07/07/16 21:11 8.6 MG Tramadol HCl (Ultram Tab) 50 mg Q4H PRN PO 06/26/16 18:00 07/26/16 17:59 06/27/16 13:00 50 MG Cholecalciferol (Vitamin D Tab) 2,000 inter.unit DAILY PO 06/27/16 09:00 07/27/16 08:59 07/08/16 09:29 2,000 INTER.UNIT Ferrous Sulfate (Feosol Tab) 325 mg BIDM PO 06/27/16 08:30 07/27/16 08:29 07/08/16 09:24 325 MG Hydroxyzine HCl (Vistaril Tab) 25 mg Q8 PRN PO 06/26/16 18:00 07/26/16 17:59 Linaclotide (Linzess) 290 mcg DAILYBB PO 06/27/16 06:00 07/27/16 05:59 07/08/16 05:37 290 MCG Heparin Sodium (Porcine) (Heparin 100 Unit/ml 5ml Flush) 5 ml PRN PRN IV 06/26/16 18:15 07/26/16 18:14 07/08/16 05:54 5 ML Tramadol HCl (Ultram Tab) 100 mg Q4H PRN PO 06/27/16 13:15 07/27/16 13:14 07/05/16 11:05 100 MG Levothyroxine Sodium (Synthroid Tab) 25 mcg DAILYBB PO 07/02/16 06:00 08/01/16 05:59 07/08/16 05:37 25 MCG Phenazopyridine HCl (Pyridium Tab) 200 mg Q8H PRN PO 07/01/16 18:15 07/31/16 18:14 07/01/16 18:57 200 MG Nystatin (Mycostatin Crm) 1 appln TID EXT 07/02/16 14:00 08/01/16 13:59 07/06/16 20:32 1 APPLN Miconazole Nitrate (Desenex Powder) 1 appln UD PRN EXT 07/02/16 10:45 08/01/16 10:44 07/04/16 08:51 1 APPLN [place] Carbonate ([place] Carbonate Tab) 450 mg QAM PO 07/03/16 09:00 08/02/16 08:59 07/08/16 09:26 450 MG Salmeterol Xinafoate/ Fluticasone (Advair Diskus 500/50 Inh) 1 puff BID INH 07/03/16 21:00 08/02/16 20:59 07/08/16 09:30 1 PUFF Aripiprazole (Abilify Tab) 20 mg QAM PO 07/05/16 09:00 08/04/16 08:59 07/08/16 09:27 20 MG Polyethylene 17 gm 17 gm BID PO 07/04/16 21:00 08/03/16 20:59 07/08/16 09:21 17 GM Ceftolozane/ Tazobactam 1.5 gm/ Dextrose 111.4 ml @ 111.4 mls/ hr Q8@0200,1000,1800 IV 07/07/16 10:43 07/11/16 10:42 07/08/16 10:47 111.4 MLS/HR Methylprednisolone Sodium Succinate/ Syringe (Solu-Medrol IV/ Syringe) 0.32 ml @ 1.5 mls/min Q8@0140,0940,1740 IV 07/07/16 10:45 07/11/16 10:44 07/08/16 09:57 1.5 MLS/MIN Objective Vital Signs Date Time Temp Pulse Resp B/P Pulse Ox O2 Delivery O2 Flow Rate FiO2 07/08/16 14:47 36.5 70 16 92 Room Air 07/08/16 09:30 Room Air 07/08/16 07:00 36.5 70 16 126/82 92 Room Air 07/08/16 00:30 Room Air 07/07/16 22:59 36.7 106 16 121/80 94 Room Air 07/07/16 20:00 Room Air 07/07/16 16:28 36.7 94 16 123/77 96 Room Air Physical Exam General Appearance: WD/WN, no apparent distress Eyes: normal inspection, sclerae normal ENT: normal ENT inspection, pharynx normal Neck: supple, no adenopathy, trachea midline Respiratory/Chest: lungs clear, normal breath sounds, no respiratory distress Cardiovascular: regular rate, rhythm, no gallop, no murmur Abdomen: normal bowel sounds, non tender, soft, no organomegaly Extremities: non-tender, no calf tenderness Neurologic/Psychiatric: alert, oriented x 3 Skin: normal color, no rash Laboratory Results Last 24 Hours Test 07/08/16 05:50 White Blood Count 17.52 K/uL Red Blood Count 4.64 M/uL Hemoglobin 14.4 g/dL Hematocrit 45.4 % Mean Corpuscular Volume 97.8 fL Mean Corpuscular Hemoglobin 31.0 pg Mean Corpuscular Hemoglobin Concent 31.7 g/dl RDW Standard Deviation 54.2 fL RDW Coefficient of Variation 15.3 % Platelet Count 176 K/uL Mean Platelet Volume 9.9 fL Sodium Level 141 mmol/L Potassium Level 3.7 mmol/L Chloride Level 104 mmol/L Carbon Dioxide Level 28 mmol/L Anion Gap 9.0 mmol/L Blood Urea Nitrogen 20 mg/dl Creatinine 0.74 mg/dl Est Creatinine Clear Calc Drug Dose 80.8 ml/min Estimated GFR () 126.9 Estimated GFR (Non- 109.5 BUN/Creatinine Ratio 26.5 Random Glucose 141 mg/dl Calcium Level 8.9 mg/dl Assessment and Plan 31-year-old female with spina bifida and paraplegia with history of recurrent urinary tract infections, now with another urinary tract infection with relatively resistant Pseudomonas aeruginosa. Has completed planned 7 day course of therapy with Zerbaxa with clinical resolution. Patient to be followed off antibiotics.
--- NOTE | 2016-07-08 19:38 | Discharge Summary ---
Discharge Summary Admission Date: Jun 26, 2016 at 15:55 Discharge Date: Jul 08, 2016 Discharge Disposition: Home Principal Diagnosis: Complicated UTI Problems/Secondary Diagnoses: Spina bifida H/o hydrocephalus s/p IN CLASS [employer] shunt with multiple revisions Chronic indwelling suprapubic catheter Bipolar disorder Anxiety disorder Schizoaffective disorder with suicidal ideation on admission to psych unit Constipation Asthma Procedures: RENAL ULTRASOUND HISTORY: Urinary tract infection. Assess for pyelonephritis. COMPARISON: Abdomen and pelvis CT 04/19/2016. FINDINGS: Right kidney: 8.5 cm. No hydronephrosis. Normal corticomedullary differentiation and cortical thickness. Left kidney: 9.7 cm. No hydronephrosis. Normal corticomedullary differentiation and mild cortical thinning/lobulation. Bladder: Not visualized due to the suprapubic bandage and [place] catheter. IMPRESSION: No significant change compared to the prior CT examination. No hydronephrosis. The bladder was not visualized. Consultations: Infectious Disease Psychiatry Medication Reconciliation New Medications: Levothyroxine Sodium (Bulk) (Levothyroxine Sodium) 1 Pow Pow 25 MCG PO QAM for 30 Days, #30 TAB Magnesium Citrate (Magnesium Citrate) 1.745 Gm/30 Ml Imani 296 ML PO DAILY PRN for Constipation, #296 ML Aripiprazole (Abilify) 20 Mg Tab 20 MG PO DAILY for 30 Days, #30 TAB [place] Carbonate Ext Rel (Lithobid Ext Rel) 450 Mg Tabcr 450 MG PO QAM for 30 Days, #30 TAB Magnesium Hydroxide (Milk of Magnesia) 30 Ml Susp 30 ML PO Q6H PRN for Constipation for 30 Days Miconazole Nitrate (Desenex Shake Powder) 43 Appln/43 Gm Powd 1 APPLN EXT UD PRN for Affected Skin Folds for 30 Days Polyethylene (Miralax) 17 Gm Pow 17 GM PO BID for 30 Days Changed Medications: Docusate Sodium (Dulcolax Stool Softener) 100 Mg Cap 100 MG PO BID for 30 Days (Changed from: DAILY; Removed Reason) Continued Medications: Acetaminophen (Acetaminophen Extra Stren) 500 Mg Tab 500-1000 MG PO Q6H PRN for Pain Albuterol Hfa (Ventolin Hfa) 200 Puffs/25104 Mcg Aers 2 PUFFS INH Q4 PRN for Shortness of Breath, #1 INHALER 0 Refills Cholecalciferol (Vitamin D) 2,000 Unit Cap 2000 INTER.UNIT PO DAILY Clonazepam (Klonopin) 0.5 Mg Tab 0.5 MG PO BID, TAB Eletriptan Hydrobromide (Relpax) 20 Mg Tab 20 MG PO UD PRN for Migraine TAKE 1 TABLET AT ONSET OF MIGRAINE, MAY REPEAT ONCE AFTER 2 HOURS. MAXIMUM 2 DOSES/24 HOURS. Ferrous Sulfate (Iron Supplement) 325 Mg Tab 325 MG PO BIDM Fluticasone Prop/Salmeterol (Advair Diskus 500/50 60 Dose) 1 Ea Aerp 1 PUFF INH BID, INHALER Gabapentin (Gabapentin) 300 Mg Cap 300 MG PO TID Hydroxyzine HCl (Hydroxyzine Pamoate) 25 Mg Tab 25 MG PO Q8 PRN for Anxiety Hydroxyzine Hcl (Atarax) 25 Mg Tab 25 MG PO QD@1200, TAB Hyoscyamine Sulfate (Levsin) 0.125 Mg Tab 0.125 MG PO QID Ketorolac Tromethamine (Ketorolac Tromethamine) 10 Mg Tab 10-20 MG PO UD PRN for Headache TAKE 1 TO 2 TABLETS TWICE A DAY NEEDED FOR HEADACHE/SEVERE PAIN, MAXIMUM 2 DOSES 3 DAYS PER WEEK Linaclotide (Linzess) 290 Mcg Cap 290 MCG PO DAILY [place] Carbonate ([place] Carbonate) 300 Mg Tab 600 MG PO HS, #1 TAB Meclizine HCl (Meclizine HCl) 25 Mg Tab 25 MG PO Q8 PRN for Dizziness or Vertigo Multiple Vitamin (Multivitamin) 1 Tab Tab 1 TAB PO DAILY, TAB Nortriptyline Hcl (Pamelor) 75 Mg Cap 100 MG PO HS, CAP TAKE THIS MEDICATION 2 TO 3 HOURS BEFORE BEDTIME Nystatin (Topical) (Nystatin) 100,000 Unit/Gm Oin 1 APPLN TOP UD PRN for Yeast Outbreaks, GM Nystatin (Topical) (Nystop) 100,000 Unit/Gm Pow 1 APPLN TOP UD PRN for Skin Irritation APPLY DIRECTED Ondansetron (Ondansetron HCl) 4 Mg Tab 4 MG PO DAILY PRN for Nausea Pantoprazole (Pantoprazole Sodium) 40 Mg Tab 40 MG PO QAM Ranitidine (Zantac) 150 Mg Tab 150 MG PO HS, TAB Sennosides (Senna Lax) 8.6 Mg Tab 8.6 MG PO DAILY for 30 Days (This prescription has been renewed) Tramadol (Ultram) 50 Mg Tab 50 MG PO Q4H PRN for Pain, TAB Wound Dressings (Hydrofera Blue Foam Dress) 1 Pad Pad 1 APPLN TOP DAILY 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 Discontinued Medications: Aripiprazole (Abilify) 5 Mg Tab 12.5 MG PO DAILY for 30 Days, #75 TAB 1 Refill [place] Carbonate ([place] Carbonate) 300 Mg Tab 300 MG PO QAM, #1 TAB Referrals At Discharge Follow up Referrals: Physician Referral - Within 1 Week with Darvin Lea D.O.Int.Med. Discharge Exam Pt doing well on day of discharge. No BM though in 10 days but no abdominal pain , afebrile. Now cleared from Psych perspective for discharge to home rather than plan to go back to inpatient Psych. Review of Systems: Constitutional: No chills, No fever Eyes: No problem reported ENT: No problem reported Respiratory: No shortness of breath Cardiovascular: No chest pain Abdomen: + constipation, No nausea, No pain, No vomiting Musculoskeletal: No problem reported Genitourinary - Female: No problem reported Neurologic: + numbness/tingling, + paralysis Psychiatric: No problem reported Endocrine: No problem reported Hematologic / Lymphatic: No problem reported Integumentary: No problem reported Physical Exam: General Appearance: no apparent distress, + obese Eyes: sclerae normal, + pertinent finding (esotropia OS) ENT: hearing grossly normal Neck: trachea midline Respiratory/Chest: lungs clear, normal breath sounds, no respiratory distress, no accessory muscle use Cardiovascular: regular rate, rhythm, no edema, no gallop, no murmur Abdomen / GI: normal bowel sounds, non tender, soft (and obese, suprapubic catheter in place w/o surrounding erythema) Extremities: + pertinent finding (bilateral BKAs) Neurologic/Psychiatric: alert, normal mood/affect, oriented x 3 Skin: normal color, warm/dry, no rash Hospital Course 31 y/o female with a history of spina bifida, hydrocephalus S/P IN CLASS [employer] shunt with multiple revisions, psychiatric disorder and recently suicidal ideation presented from psych unit with pseudomonal UTI. Pt has chronic suprapubic cath. Complicated UTI POA Urine culture from 06/24 positive for pseudomonas resistant to carbapenems, Levaquin and Cipro, sensitive to cefepime Repeat urine culture positive for two different pseudomonas species, sensitivities show intermediate sensitivity to cefepime on one of them. ID consulted and recommended Zerbaxa 1.5 grams q8h x 7 more days (started ), last dose 10 AM on 07/08/16 Continue to pretreat abx with Solu-Medrol 20 mg IV prior to administration q8h Renal US WNL Change out suprapubic catheter q2 weeks-last change out was 07/06 and Mom is present and does it routinely at home, patient only wants her mom to do it as she is very skilled at it for many years. -no need to repeat UA or Ur cx unless has recurrence of symptoms such as suprapubic burning or fevers Spina Bifida / Hydrocephalus / IN CLASS [employer]ER shunt with multiple revisions and hydrocephalus. At this time, appears stable. Bipolar, Anxiety, schizoaffective disorder with suicidal ideation on admission to psych unit Psych recs noted, planning for discharge to home now as pt has improved and is safe for discharge with close outpatient Psych f/u. Continue Abilify 20 mg PO qd, Klonopin 0.5 mg PO BID, hydroxyzine 25 mg PO qd and q8h prn anxiety, lithium 450 mg PO qam and 600 mg PO qhs. Also added levothyroxine 25mcg daily Asthma Continue Advair 1 puff inh BID and Ventolin 2 puffs inh q4h prn SOB/wheezing Constipation- -continue Miralax bid -took Mag citrate bottle on 07/06 and 07/08 -bisacodyl suppos given 07/07 -continue senna daily DVT prophylaxis Enoxaparin 40 mg SC q24h SUZAN muñoz and SCDs Code Status Level I, FULL RESUSCITATION STATUS Dispo to home Total Time Spent: Greater than 30 minutes This includes examination of the patient, discharge planning, medication reconciliation, and communication with other providers. Discharge Instructions Please refer to the electronic Patient Visit Report (Discharge Instructions) for additional information. Follow-Up With PCP within 1 week With Psychiatry and Therapist as scheduled within 1 week Additional Copies To Darvin Lea D.O.Int.Med.
[2016-09-02] MEDS ORDERED: CLC/300 PO (07:49)
[2016-09-23] MEDS ORDERED: INDO-22 PO (10:28)
[2016-09-23] MEDS ORDERED: ARIP30TA3 PO (10:28)
[2016-09-23] MEDS ORDERED: TOPI50TA16 PO (10:28)
[2016-09-26] MEDS ORDERED: ERTA1INJ IV (15:06)
[2016-11-17] MEDS ORDERED: BND25 PO (14:33)
[2016-11-18] MEDS ORDERED: XRL10 PO (10:36)
[2016-11-18] MEDS ORDERED: CPR500 PO (10:36)
[2016-12-28] MEDS ORDERED: DFL100 PO (10:32)
[2017-01-11] MEDS ORDERED: LEVO25TA5 PO (13:23)
[2017-01-11] MEDS ORDERED: BENZ100C84 PO (16:58)
[2017-01-11] MEDS ORDERED: XPNINS NEB (17:08)
[2017-01-14] MEDS ORDERED: [UNRECOGNIZED DRUG - CODE] IART (10:53)
[2017-01-14] MEDS ORDERED: RIVA1.5T PO (12:41)
[2017-02-10] MEDS ORDERED: CHOL200010 PO (13:04)
[2017-02-10] MEDS ORDERED: ADVIN50/60 INH (13:04)
[2017-02-10] MEDS ORDERED: NRT/25 PO (13:23)
[2017-02-10] MEDS ORDERED: WOUN1PAD EXT (13:52)
[2017-02-10] MEDS ORDERED: MECL1TAB42 PO (13:52)
[2017-02-10] MEDS ORDERED: MGRSP NAE (13:52)
[2017-02-10] MEDS ORDERED: VTMB12 PO (15:08)
[2017-02-10] MEDS ORDERED: PRT/40 PO (16:40)
[2017-02-10] MEDS ORDERED: HYOS1TAB PO (16:40)
[2017-02-10] MEDS ORDERED: LINA1CAP2 PO (16:40)
[2017-02-10] MEDS ORDERED: GABA1CAP4 PO (16:40)
[2017-02-10] MEDS ORDERED: SNG10 PO (16:58)
[2017-02-10] MEDS ORDERED: LITH1TAB PO (16:58)
[2017-02-10] MEDS ORDERED: INDO1CAP34 PO (16:58)
[2017-02-10] MEDS ORDERED: RSP1 PO (16:58)
[2017-02-10] MEDS ORDERED: FERR325T PO (17:26)
[2017-02-10] MEDS ORDERED: ULT50 PO (17:26)
[2017-02-10] MEDS ORDERED: ONDA4TAB10 SL (17:26)
[2017-02-10] MEDS ORDERED: CLON0.5T3 PO (17:27)
[2017-02-10] MEDS ORDERED: SENN8.6T13 PO (17:28)
[2017-02-10] MEDS ORDERED: DOCU-105 PO (17:35)
[2017-02-10] MEDS ORDERED: MULTTAB58 PO (18:07)
[2017-02-10] MEDS ORDERED: LEVO50TA6 PO (18:32)
[2017-02-10] MEDS ORDERED: NORT75CA PO (18:38)
[2017-02-10] MEDS ORDERED: VST25HP PO (18:40)
[2017-02-10] MEDS ORDERED: [UNRECOGNIZED DRUG - CODE] PO (19:25)
[2017-02-10] MEDS ORDERED: NYST100010 TOP (20:28)
[2017-02-10] MEDS ORDERED: MISCCAP80 PO (20:28)
[2017-02-10] MEDS ORDERED: TOPI1CAP3 PO (20:28)
[2017-02-10] MEDS ORDERED: LITH600C PO (22:29)
[2017-02-10] MEDS ORDERED: ALBU18002 INH (22:29)
[2017-02-10] MEDS ORDERED: CGN1X PO (22:29)
[2017-02-14] MEDS ORDERED: PRT/40 PO (15:35)
[2017-02-14] MEDS ORDERED: XRL20 PO (15:35)
[2017-02-14] MEDS ORDERED: MTRG45 TOP (15:35)
[2017-02-14] MEDS ORDERED: [UNRECOGNIZED DRUG - CODE] IV (15:35)
[2017-02-14] MEDS ORDERED: MGNO400 PO (16:29)
[2017-02-14] MEDS ORDERED: POTA10CA28 PO (16:29)
== END 2016-07-08 15:30 | disposition home or self-care (01) | DRG 690 ==
LOC: C.MSN 15:55
PROVIDERS: ADMIT Internal Medicine; ATTEND Family Medicine
DX: N39.0 Urinary tract infection, site not specified (principal); G82.20 Paraplegia, unspecified; Z68.44 Body mass index [BMI] 60.0-69.9, adult; Q05.4 Unspecified spina bifida with hydrocephalus; K21.9 Gastro-esophageal reflux disease without esophagitis; F41.9 Anxiety disorder, unspecified; B96.5 Pseudomonas (aeruginosa) (mallei) (pseudomallei) as the cause of diseases classified elsewhere; F25.0 Schizoaffective disorder, bipolar type; J45.909 Unspecified asthma, uncomplicated; K59.00 Constipation, unspecified; E66.01 Morbid (severe) obesity due to excess calories; G43.909 Migraine, unspecified, not intractable, without status migrainosus; R30.0 Dysuria; Z79.899 Other long term (current) drug therapy; Z86.14 Personal history of Methicillin resistant Staphylococcus aureus infection; Z91.048 Other nonmedicinal substance allergy status; Z88.8 Allergy status to other drugs, medicaments and biological substances; Z88.2 Allergy status to sulfonamides; Z91.040 Latex allergy status; Z80.9 Family history of malignant neoplasm, unspecified; Z83.3 Family history of diabetes mellitus; Z83.6 Family history of other diseases of the respiratory system; Z84.89 Family history of other specified conditions; Z98.2 Presence of cerebrospinal fluid drainage device; Z89.512 Acquired absence of left leg below knee; Z89.511 Acquired absence of right leg below knee; Z88.3 Allergy status to other anti-infective agents

== ENCOUNTER → 2016-07-14 | Outpatient (CLI) | payer BC, OTHER ==
[~2016-07-14] MED LIST changes: -ABL/5 PO; +ABL10 PO; +ADVIN50/60 INH; +ALBU18002 INH; +ARIP1TAB PO; -ARIP1TAB15 PO; +ARIP20TA4 PO; +ARIP30TA3 PO; +BENZ100C7 PO; +BENZ100C84 PO; +BND25 PO; +BUSP5TAB59 PO; +CGN1X PO; +CHOL200010 PO; +CLC/300 PO; +CLON0.5T3 PO; +CPR500 PO; +DFL100 PO; +DOCU100C31 PO; +DOXY100C2 PO; +ERTA1INJ IV; +FERR1TAB13 PO; +FERR325T PO; +FLUC100T4 PO; +GABA1CAP4 PO; +GUAI1TAB68 PO; +HYDR-3124 PO; +HYDR-5688 PO; +HYOS1TAB PO; +INDO-22 PO; +INDO1CAP34 PO; +LEVO25TA5 PO; +LEVO50TA6 PO; +LEVOPOW36 PO; +LINA1CAP2 PO; +LITH1TAB PO; +LTHSR450 PO; +MAGN1SOL7 PO; +MCRB100 PO; +MCRB100HP PO; +MCRK20 PO; +MCTP EXT; +MECL1TAB42 PO; +MGNO400 PO; +MGRSP NAE; +MICO1POW8 TOP; +MISCCAP80 PO; +MOMLX PO; +MRLP17 PO; +MTRG45 TOP; +MULTTAB58 PO; +NITR-5 PO; +NORE-38 PO; +NORE-39 PO; +NORT75CA PO; +NRT/25 PO; +NYSTCRE11; +ONDA4TAB10 SL; +POTA10CA28 PO; +PROB1TAB16 PO; +PRT/40 PO; +RISP1TAB3 PO; +RISP1TAB68 PO; +RIVA1.5T PO; +RSP1 PO; +SNG10 PO; +TOPI1CAP3 PO; +TOPI25TA99 PO; +TOPI50TA16 PO; +TPM25 PO; +ULT50 PO; +VTMB12 PO; +WOUN1PAD EXT; +XPNINS NEB; +XRL10 PO; +XRL15 PO; +XRL20 PO; +ZNT/150 PO; +[UNRECOGNIZED DRUG - CODE] IART; +[UNRECOGNIZED DRUG - CODE] IV; +[UNRECOGNIZED DRUG - CODE] IV; +[UNRECOGNIZED DRUG - CODE] IV; +[UNRECOGNIZED DRUG - CODE] PO
[2016-07-14 18:27] LABS: URINE APPEARANCE CLEAR (CLEAR); URINE BILIRUBIN NEG (NEG); URINE COLOR YELLOW; URINE EPITHELIAL CELL AUTO >30 /lpf (0-5); URINE NITRITE NEG (NEG); URINE PH 6.5 (4.5-7.5); URINE SPECIFIC GRAVITY 1.006 (1.000-1.030); UROBILINOGEN NEG (NEG)
[2016-07-14 18:32] LABS: BASO % 0.3 %; BASO ABS # 0.03 K/uL (0-0.2); COMPLETE YES; EOS % 2.7 %; HEMATOCRIT 42.7 % (37-47); IG% 0.6 %; LYMPH % 21.6 %; LYMPH ABS # 2.21 K/uL (1.2-3.4); MEAN CELL VOLUME 99.5 fL (80-100); MEAN CORPUSCULAR HEMOGLOBIN 31.5 pg (25-34); MEAN CORPUSCULAR HGB CONC 31.6 g/dl (32-36); MEAN PLATELET VOLUME 11.3 fL (7.4-10.4); MONO % 5.9 %; NEUT % 68.9 %; PLATELET COUNT 120 K/uL (130-400); RED BLOOD COUNT 4.29 M/uL (4.2-5.4); WHITE BLOOD COUNT 10.24 K/uL (4.8-10.8)
[2016-07-14 18:33] LABS: MANUAL MICROSCOPIC REQUIRED? NO; REVIEW REQ? NO
[2016-07-14 19:28] LABS: ALT/SGPT 33 U/L (12-78); AST/SGOT 11 U/L (15-37); BLOOD UREA NITROGEN 10 mg/dl (7-18); BUN/CREATININE RATIO 16.3 (10-20); CALCIUM 8.2 mg/dl (8.5-10.1); CARBON DIOXIDE 26 mmol/L (21-32); CHLORIDE 108 mmol/L (98-107); CREATININE 0.62 mg/dl (0.60-1.20); GLUCOSE 100 mg/dl (70-99); POTASSIUM 3.5 mmol/L (3.5-5.1); SODIUM 143 mmol/L (136-145)
[2016-07-14 19:30] LABS: ALB/GLOB RATIO 0.8 (0.9-2); ALKALINE PHOSPHATASE 94 U/L (45-117)
== END | disposition home or self-care (01) ==
LOC: C.LABBC 13:50
PROVIDERS: ATTEND Family Medicine
DX: N39.0 Urinary tract infection, site not specified (principal)

== ENCOUNTER 2016-07-15 13:55 | Emergency (ER) | payer BC, OTHER ==
[~2016-07-15 13:55] MED LIST changes: -ABL10 PO; -ADVIN50/60 INH; -ALBU18002 INH; -ARIP1TAB PO; -ARIP30TA3 PO; -BENZ100C7 PO; -BENZ100C84 PO; -BND25 PO; -BUSP5TAB59 PO; -CGN1X PO; -CHOL200010 PO; -CLC/300 PO; -CLON0.5T3 PO; -CPR500 PO; -DFL100 PO; -DOCU100C31 PO; -DOXY100C2 PO; -ERTA1INJ IV; -FERR1TAB13 PO; -FERR325T PO; -FLUC100T4 PO; -GABA1CAP4 PO; -GUAI1TAB68 PO; -HYDR-3124 PO; -HYDR-5688 PO; -HYOS1TAB PO; -INDO-22 PO; -INDO1CAP34 PO; -LEVO25TA5 PO; -LEVO50TA6 PO; -LINA1CAP2 PO; -LITH600C PO; -LTHSR450 PO; -MCRB100 PO; -MCRB100HP PO; -MCRK20 PO; -MECL1TAB42 PO; -MGNO400 PO; -MGRSP NAE; -MICO1POW8 TOP; -MISCCAP80 PO; -MTRG45 TOP; -MULTTAB58 PO; -NITR-5 PO; -NORE-38 PO; -NORE-39 PO; -NORT75CA PO; -NRT/25 PO; -NYSTCRE11; -ONDA4TAB10 SL; -POTA10CA28 PO; -PROB1TAB16 PO; -PRT/40 PO; -RISP1TAB3 PO; -RISP1TAB68 PO; -RIVA1.5T PO; -RSP1 PO; -SNG10 PO; -TOPI1CAP3 PO; -TOPI25TA99 PO; -TOPI50TA16 PO; -TPM25 PO; -ULT50 PO; -VTMB12 PO; -WOUN1PAD EXT; -XPNINS NEB; -XRL10 PO; -XRL15 PO; -XRL20 PO; -ZNT/150 PO; -[UNRECOGNIZED DRUG - CODE] IART; -[UNRECOGNIZED DRUG - CODE] IV; -[UNRECOGNIZED DRUG - CODE] IV; -[UNRECOGNIZED DRUG - CODE] IV; -[UNRECOGNIZED DRUG - CODE] PO
[2016-07-15 14:00] VITALS: TEMP 36.9
--- NOTE | 2016-07-15 14:22 | EMERGENCY ROOM VISIT NOTE ---
History Report prepared by James: Diana Albert Under the Supervision of: Dr. Andrew Neumann M.D. First contact with patient: 14:11 Chief Complaint: URINARY SYMPTOMS Stated Complaint: BLADDER INFECTION Nursing Triage Summary: pt here with uti sx, burning and pain at urostomy site. pt just here last week for urosepsis chronic indwelling arango History of Present Illness The patient is a 31 year old female who presents to the Emergency Room with complaints of persistent urinary symptoms that began several days ago. She currently rates her discomfort as a 10/10 in severity. The patient states that she had a urinalysis done yesterday at her PCP's office. She states that she has so many allergies to antibiotics that she always is admitted to the hospital for IV antibiotics. The patient states that she was just evaluated in the hospital for urosepsis and was discharged last Monday. She notes burning with urination and pain. The patient's mother states that the patient has been experiencing hypokalemia. The patient notes that she follows with Dr. Robins , Infectious Disease for her urinary symptoms and problems. Source of History: patient, parent (mother) Onset: several days ago Position: other (global) Symptom Intensity: 10/10 Quality: other (urinary symptoms) Timing: other (persistent) Associated Symptoms: + urinary symptoms (burning with urination) Review of Systems All systems have been listed, reviewed, and are negative other than those previously mentioned. Please see Additional Medical History Sheet. Past Medical & Surgical Medical Problems: (1) Allergic reaction caused by a drug (2) Anxiety (3) Bipolar 1 disorder (4) Depression (5) Gastroparesis (6) GERD (gastroesophageal reflux disease) (7) Hydrocephalus (8) Intractable headache (9) Migraines (10) MRSA (methicillin resistant Staphylococcus aureus) (11) Osteomyelitis (12) Shunt placement with revision x8 (13) Spina bifida (14) UTI (urinary tract infection) Surgical Problems: (1) S/P BKA (below knee amputation) bilateral Family History Cancer Diabetes mellitus Lung disease Social History Smoking Status: Never Smoker Alcohol Use: none Drug Use: none Marital Status: single Housing Status: lives with family Occupation Status: unemployed, other Current/Historical Medications Scheduled Aripiprazole (Abilify), 20 MG PO DAILY Cholecalciferol (Vitamin D), 2,000 INTER.UNIT PO DAILY Clonazepam (Klonopin), 0.5 MG PO BID Cyanocobalamin (Vitamin B-12), 1 TAB PO DAILY Docusate Sodium (Dulcolax Stool Softener), 100 MG PO BID Ferrous Sulfate (Kp Ferrous Sulfate), 1 TAB PO BIDM Fluticasone Prop/Salmeterol (Advair Diskus 500/50 60 Dose), 1 PUFF INH BID Gabapentin (Gabapentin), 300 MG PO TID Hydroxyzine Hcl (Atarax), 25 MG PO QD@1200 Hyoscyamine Sulfate (Levsin), 0.125 MG PO QID Levothyroxine Sodium (Bulk) (Levothyroxine Sodium), 25 MCG PO QAM Linaclotide (Linzess), 290 MCG PO DAILY [place] Carbonate ([place] Carbonate), 600 MG PO HS [place] Carbonate Ext Rel (Lithobid Ext Rel), 450 MG PO QAM Multiple Vitamin (Multivitamin), 1 TAB PO DAILY Nortriptyline Hcl (Pamelor), 100 MG PO HS Pantoprazole (Pantoprazole Sodium), 40 MG PO QAM Polyethylene (Miralax), 17 GM PO BID Ranitidine (Zantac), 150 MG PO HS Sennosides (Senna Lax), 8.6 MG PO DAILY Wound Dressings (Hydrofera Blue Foam Dress), 1 APPLN TOP DAILY Scheduled PRN Acetaminophen (Acetaminophen Extra Stren), 500-1,000 MG PO Q6H PRN for Pain Albuterol Hfa (Ventolin Hfa), 2 PUFFS INH Q4 PRN for Shortness of Breath Eletriptan Hydrobromide (Relpax), 20 MG PO UD PRN for Migraine Hydroxyzine HCl (Hydroxyzine Pamoate), 25 MG PO Q8 PRN for Anxiety Ketorolac Tromethamine (Ketorolac Tromethamine), 10-20 MG PO UD PRN for Headache Magnesium Citrate (Magnesium Citrate), 296 ML PO DAILY PRN for Constipation Magnesium Hydroxide (Milk of Magnesia), 30 ML PO Q6H PRN for Constipation Meclizine HCl (Meclizine HCl), 25 MG PO Q8 PRN for Dizziness or Vertigo Miconazole Nitrate (Desenex Shake Powder), 1 APPLN EXT UD PRN for Affected Skin Folds Nystatin (Topical) (Nystatin), 1 APPLN TOP UD PRN for Yeast Outbreaks Nystatin (Topical) (Nystop), 1 APPLN TOP UD PRN for Skin Irritation Ondansetron (Ondansetron HCl), 4 MG PO DAILY PRN for Nausea Tramadol (Ultram), 50 MG PO Q4H PRN for Pain Allergies Coded Allergies: Adhesives (Verified Allergy, Intermediate, TAPE- HIVES, 07/15/16) Ceftriaxone (Verified Allergy, Intermediate, rash, 07/15/16) Chlorhexidine (Verified Allergy, Intermediate, RASH, 07/15/16) Ciprofloxacin (Unverified Allergy, Intermediate, hives, 07/15/16) Latex (Verified Allergy, Intermediate, hives, 07/15/16) Levofloxacin (Verified Allergy, Intermediate, rash, 07/15/16) Linezolid (Verified Allergy, Intermediate, rash, 07/15/16) Piperacillin (Verified Allergy, Intermediate, SEVERE RASH, HIVES, 07/15/16) Tazobactam (Verified Allergy, Intermediate, SEVERE RASH, HIVES, 07/15/16) Vancomycin (Verified Allergy, Intermediate, rash, 07/15/16) Tobramycin (Verified Allergy, Mild, MILD RASH ON ARM, RED FACE, 07/15/16) IMPROVED AFTER BENADRYL, TAKING REST OF DOSE Amikacin (Verified Allergy, Unknown, PER DR ROBINS,RXN WAS TO ZOSYN NOT AMKrash;hives, 07/15/16) Sulfamethoxazole w/Trimethoprim (Unverified Allergy, Unknown, Hives, ) Can be pretreated with 10mg Zytrec 45 min prior to admin Physical Exam Vital Signs Date Time Temp Pulse Resp B/P Pulse Ox O2 Delivery O2 Flow Rate FiO2 07/15/16 17:14 100 18 120/75 98 Room Air 07/15/16 16:34 101 16 117/78 99 Room Air 07/15/16 15:22 104 18 139/89 100 Room Air 07/15/16 14:00 36.9 106 18 149/98 99 Room Air Physical Exam GENERAL: Patient awake, alert, oriented x 3. Patient follows commands. Patient does not appear toxic. Patient is adequately hydrated and well- nourished. SKIN: No erythema, pallor, cyanosis or rash HEENT: Normal head, pupils equal, reactive to light and accommodation. Ears normal. Oral cavity and posterior pharynx appear normal. Neck: Without adenopathy, no neck vein distention. LUNGS: Clear to auscultation. No wheezes, no rales, no rhonchi. HEART: No murmurs. No gallops. No rubs ABDOMEN: Obese, soft, vague suprapubic tenderness. No masses, no rebound, no hepatomegaly or splenomegaly. EXTREMITIES: Patient is paralyzed form waist down. No signs of trauma. No pedal or pretibial edema. No calf or thigh tenderness. NEUROLOGIC: Cranial nerves II-XII within normal limits. No gross motor sensory function deficits. Medical Decision & Procedures Laboratory Results 07/15/16 14:45 Red Blood Count 3.84, Mean Corpuscular Volume 98.2, Mean Corpuscular Hemoglobin 31.0, Mean Corpuscular Hemoglobin Concent 31.6, Mean Platelet Volume 10.3, Neutrophils (%) (Auto) 66.8, Lymphocytes (%) (Auto) 22.4, Monocytes (%) (Auto) 7.0, Eosinophils (%) (Auto) 3.3, Basophils (%) (Auto) 0.2, Neutrophils # (Auto) 6.65, Lymphocytes # (Auto) 2.23, Monocytes # (Auto) 0.70, Eosinophils # (Auto) 0.33, Basophils # (Auto) 0.02 07/15/16 14:45 Test 07/15/16 14:45 07/15/16 16:00 White Blood Count 9.96 K/uL (4.8-10.8) Red Blood Count 3.84 M/uL (4.2-5.4) Hemoglobin 11.9 g/dL (12.0-16.0) Hematocrit 37.7 % (37-47) Mean Corpuscular Volume 98.2 fL (80-100) Mean Corpuscular Hemoglobin 31.0 pg (25-34) Mean Corpuscular Hemoglobin Concent 31.6 g/dl (32-36) Platelet Count 119 K/uL (130-400) Mean Platelet Volume 10.3 fL (7.4-10.4) Neutrophils (%) (Auto) 66.8 % Lymphocytes (%) (Auto) 22.4 % Monocytes (%) (Auto) 7.0 % Eosinophils (%) (Auto) 3.3 % Basophils (%) (Auto) 0.2 % Neutrophils # (Auto) 6.65 K/uL (1.4-6.5) Lymphocytes # (Auto) 2.23 K/uL (1.2-3.4) Monocytes # (Auto) 0.70 K/uL (0.11-0.59) Eosinophils # (Auto) 0.33 K/uL (0-0.5) Basophils # (Auto) 0.02 K/uL (0-0.2) RDW Standard Deviation 56.3 fL (36.4-46.3) RDW Coefficient of Variation 15.6 % (11.5-14.5) Immature Granulocyte % (Auto) 0.3 % Immature Granulocyte # (Auto) 0.03 K/uL (0.00-0.02) Anion Gap 8.0 mmol/L (3-11) Estimated GFR () 147.8 Estimated GFR (Non- 127.5 BUN/Creatinine Ratio 21.1 (10-20) Lactic Acid Level 0.8 mmol/L (0.4-2.0) Calcium Level 8.4 mg/dl (8.5-10.1) Urine Color YELLOW Urine Appearance CLEAR (CLEAR) Urine pH 6.5 (4.5-7.5) Urine Specific [place] 1.018 (1.000-1.030) Urine Protein NEG (NEG) Urine Glucose (UA) NEG (NEG) Urine Ketones NEG (NEG) Urine Occult Blood NEG (NEG) Urine Nitrite NEG (NEG) Urine Bilirubin NEG (NEG) Urine Urobilinogen NEG (NEG) Urine Leukocyte Esterase TRACE (NEG) Urine WBC (Auto) 1-5 /hpf (0-5) Urine RBC (Auto) 0-4 /hpf (0-4) Urine Hyaline Casts (Auto) 5-10 /lpf (0-5) Urine Epithelial Cells (Auto) >30 /lpf (0-5) Urine Bacteria (Auto) 1+ (NEG) Laboratory results as stated above per my review. Medications Administered Medications (Trade) Dose Ordered Sig/Brenna Route Start Time Stop Time Status Last Admin Dose Admin Heparin Sodium (Porcine) (Heparin 100 Unit/ml 5ml Flush) 5 ml STK-MED ONCE .ROUTE 07/15/16 14:53 07/15/16 14:55 DC 2/10/17 14:53 5 ML Diphenhydramine HCl 25 mg 25 mg NOW STAT IV 07/15/16 15:05 07/15/16 15:06 DC 07/15/16 15:20 25 MG Tobramycin Sulfate 400 mg/ Dextrose 110 ml @ 100 mls/hr TODAY@1545 ONCE IV 07/15/16 15:45 07/15/16 16:50 DC 07/15/16 15:58 100 MLS/HR Ertapenem/Sodium Chloride (Invanz Iv/Nss Ad-Van 50ml) 50 ml @ 100 mls/hr TODAY@1545 ONCE IV 07/15/16 15:45 07/15/16 16:14 DC 07/15/16 15:58 100 MLS/HR Acetaminophen/ Hydrocodone Bitart ([place] 5/325 Tab) 1 tab ONE ONCE PO 07/15/16 16:15 07/15/16 16:16 DC 07/15/16 16:11 1 TAB Albuterol (Ventolin Hfa Inhaler) 60 puffs STK-MED ONCE INH 07/15/16 16:16 07/15/16 16:18 DC 07/15/16 16:19 2 PUFFS Heparin Sodium (Porcine) (Heparin 100 Unit/ml 5ml Flush) 5 ml STK-MED ONCE .ROUTE 07/15/16 16:59 07/15/16 17:01 DC 07/15/16 17:11 5 ML ED Course 1411: Past medical records reviewed. The patient was evaluated in room C9. A complete history and physical examination was performed. 1453: Ordered Heparin Sodium (Porcine) 5 ml .route. 1505: Ordered Benadryl Inj 25 mg IV. 1545: Ordered Ertapenem 1 gm/Sodium Chloride 50 ml @ 100 mls/hr IV, Tobramycin Sulfate 400 mg/Dextrose 110 ml @ 100 mls/hr IV. Medical Decision Nurses notes reviewed. Medical history sheet reviewed. Differential diagnosis includes but is not limited to: UTI, sepsis, pyelonephritis. The patient was sent here with a positive urine culture from 1 day ago. The patient has multiple allergies to many medications. Along with the ED pharmacist and Dr. Robins from infectious disease we elected to place the patient on Invanz and tobramycin. The patient will also receive IV medication at home. The patient's port was accessed and the port will remain accessed for home use. The patient also received a Ventolin inhaler while here and 1 [place]. Impression Primary Impression: Urinary tract infection Scribe Attestation The scribe's documentation has been prepared under my direction and personally reviewed by me in its entirety. I confirm that the note above accurately reflects all work, treatment, procedures, and medical decision making performed by me. Departure Information Dispostion Home / Self-Care Referrals Darvin Lea, D.O.Int.Med. (PCP) Patient Instructions My [facility] Additional Instructions Continue antibiotics at home as prescribed. Follow-up with Dr. Lea.
[2016-07-15 14:59] LABS: BASO % 0.2 %; BASO ABS # 0.02 K/uL (0-0.2); COMPLETE YES; EOS % 3.3 %; HEMATOCRIT 37.7 % (37-47); IG% 0.3 %; LYMPH % 22.4 %; LYMPH ABS # 2.23 K/uL (1.2-3.4); MEAN CELL VOLUME 98.2 fL (80-100); MEAN CORPUSCULAR HGB CONC 31.6 g/dl (32-36); MEAN PLATELET VOLUME 10.3 fL (7.4-10.4); NEUT % 66.8 %; PLATELET COUNT 119 K/uL (130-400); RED BLOOD COUNT 3.84 M/uL (4.2-5.4); WHITE BLOOD COUNT 9.96 K/uL (4.8-10.8)
[2016-07-15] MEDS ORDERED: DiphenhydrAMINE HCL 50 MG/ML VIAL IV STA (15:05)
[2016-07-15] MEDS ORDERED: FERR1TAB13 PO (15:08)
[2016-07-15] MEDS ORDERED: ERTAPENEM IV 1 GM in SODIUM CHLOR 0.9% AD-VAN 50ML IV ONE (15:45)
[2016-07-15] MEDS ORDERED: DEXTROSE 5% IV ONE (15:45)
[2016-07-15] MEDS ORDERED: TOBRAMYCIN SULF IV ONE (15:45)
[2016-07-15 15:49] LABS: BLOOD UREA NITROGEN 11 mg/dl (7-18); BUN/CREATININE RATIO 21.1 (10-20); CALCIUM 8.4 mg/dl (8.5-10.1); CARBON DIOXIDE 24 mmol/L (21-32); CHLORIDE 109 mmol/L (98-107); CREATININE 0.54 mg/dl (0.60-1.20); GLUCOSE 99 mg/dl (70-99); POTASSIUM 3.8 mmol/L (3.5-5.1); SODIUM 141 mmol/L (136-145)
[2016-07-15] MEDS ORDERED: HYDROCODONE/ACETAMOPHEN 5/325MG TAB PO ONE (16:15)
[2016-07-15] MEDS ORDERED: ALBUTEROL HFA 8 GM INHALER INH ONE (16:16)
--- NOTE | 2016-07-15 16:24 | Pharmacy Progress Note ---
ED Pharmacist Progress Note Date of Service: Jul 15, 2016. ED and Outpatient Antibiotic Assessment/Plan ED course * Patient with complicated infectious history followed by Dr. Charlton, ID physician. Now with GNR and Strep species growing from urine culture. * Previous cultures with multi-drug resistant Pseudomonas and very sensitive E. coli, Proteus, and Enterobacter. * Patient with multiple confirmed drug allergies. * I called Dr. Charlton and discussed a plan with her - will give both tobramycin x1 and ertapenem x1 in the ED (and pre-medicate with Benadryl 2nd previous reaction to tobramycin). Dr. Charlton was more concerned with GNR than the Strep species. Management post-ED visit * Dr. Charlton agreed that ongoing therapy (including prescription for further antibiotics and culture monitoring) will be managed by her office. * Plan is for [facility] home infusion to provide antibiotic(s) and any additional needed supplies and for patient to have her mom administer at home - ID outpatient office to manage correspondence/coordination with [facility]. * Dr. Charlton plans to continue ertapenem only for now, and re-evaluate need for Pseudomonas coverage based on culture results. * Patient completed a 7 day course of Zerbaxa for Pseudomonas UTI on 07/08/16. Patient/family communication Spoke with patient and her mom who are both aware of and agree to the plan as outlined above. They are aware that ertapenem will not cover Pseudomonas and plan to call tomorrow to see if Pseudomonas has been identified in the urine culture from 07/14/16. Repeat urine culture on 07/15/16 pending.
[2016-07-15 16:50] LABS: MANUAL MICROSCOPIC REQUIRED? NO; REVIEW REQ? NO; URINE APPEARANCE CLEAR (CLEAR); URINE BILIRUBIN NEG (NEG); URINE COLOR YELLOW; URINE EPITHELIAL CELL AUTO >30 /lpf (0-5); URINE NITRITE NEG (NEG); URINE PH 6.5 (4.5-7.5); URINE SPECIFIC GRAVITY 1.018 (1.000-1.030); UROBILINOGEN NEG (NEG); ZZURINE CULT IF INDIC CATH YES
[2016-07-15 17:14] VITALS: BP 120/75; PULSE 100; O2SAT 98
[2016-09-02] MEDS ORDERED: CLC/300 PO (07:49)
[2016-09-23] MEDS ORDERED: TOPI50TA16 PO (10:28)
[2016-09-23] MEDS ORDERED: INDO-22 PO (10:28)
[2016-09-23] MEDS ORDERED: ARIP30TA3 PO (10:28)
[2016-09-26] MEDS ORDERED: ERTA1INJ IV (15:06)
[2016-10-26] MEDS ORDERED: [UNRECOGNIZED DRUG - CODE] IV (15:52)
[2016-10-26] MEDS ORDERED: MCRK20 PO (16:06)
[2016-11-17] MEDS ORDERED: BND25 PO (14:33)
[2016-11-18] MEDS ORDERED: CPR500 PO (10:36)
[2016-11-18] MEDS ORDERED: XRL10 PO (10:36)
[2016-12-28] MEDS ORDERED: DFL100 PO (10:32)
[2017-01-11] MEDS ORDERED: LEVO25TA5 PO (13:23)
[2017-01-11] MEDS ORDERED: BENZ100C84 PO (16:58)
[2017-01-11] MEDS ORDERED: XPNINS NEB (17:08)
[2017-01-14] MEDS ORDERED: [UNRECOGNIZED DRUG - CODE] IART (10:53)
[2017-01-14] MEDS ORDERED: RIVA1.5T PO (12:41)
[2017-02-10] MEDS ORDERED: ADVIN50/60 INH (13:04)
[2017-02-10] MEDS ORDERED: CHOL200010 PO (13:04)
[2017-02-10] MEDS ORDERED: NRT/25 PO (13:23)
[2017-02-10] MEDS ORDERED: WOUN1PAD EXT (13:52)
[2017-02-10] MEDS ORDERED: MECL1TAB42 PO (13:52)
[2017-02-10] MEDS ORDERED: MGRSP NAE (13:52)
[2017-02-10] MEDS ORDERED: VTMB12 PO (15:08)
[2017-02-10] MEDS ORDERED: GABA1CAP4 PO (16:40)
[2017-02-10] MEDS ORDERED: LINA1CAP2 PO (16:40)
[2017-02-10] MEDS ORDERED: HYOS1TAB PO (16:40)
[2017-02-10] MEDS ORDERED: PRT/40 PO (16:40)
[2017-02-10] MEDS ORDERED: RSP1 PO (16:58)
[2017-02-10] MEDS ORDERED: LITH1TAB PO (16:58)
[2017-02-10] MEDS ORDERED: SNG10 PO (16:58)
[2017-02-10] MEDS ORDERED: INDO1CAP34 PO (16:58)
[2017-02-10] MEDS ORDERED: ONDA4TAB10 SL (17:26)
[2017-02-10] MEDS ORDERED: FERR325T PO (17:26)
[2017-02-10] MEDS ORDERED: ULT50 PO (17:26)
[2017-02-10] MEDS ORDERED: CLON0.5T3 PO (17:27)
[2017-02-10] MEDS ORDERED: SENN8.6T13 PO (17:28)
[2017-02-10] MEDS ORDERED: DOCU-105 PO (17:35)
[2017-02-10] MEDS ORDERED: MULTTAB58 PO (18:07)
[2017-02-10] MEDS ORDERED: LEVO50TA6 PO (18:32)
[2017-02-10] MEDS ORDERED: NORT75CA PO (18:38)
[2017-02-10] MEDS ORDERED: VST25HP PO (18:40)
[2017-02-10] MEDS ORDERED: [UNRECOGNIZED DRUG - CODE] PO (19:25)
[2017-02-10] MEDS ORDERED: NYST100010 TOP (20:28)
[2017-02-10] MEDS ORDERED: TOPI1CAP3 PO (20:28)
[2017-02-10] MEDS ORDERED: MISCCAP80 PO (20:28)
[2017-02-10] MEDS ORDERED: CGN1X PO (22:29)
[2017-02-10] MEDS ORDERED: LITH600C PO (22:29)
[2017-02-10] MEDS ORDERED: ALBU18002 INH (22:29)
[2017-02-14] MEDS ORDERED: [UNRECOGNIZED DRUG - CODE] IV (15:35)
[2017-02-14] MEDS ORDERED: PRT/40 PO (15:35)
[2017-02-14] MEDS ORDERED: XRL20 PO (15:35)
[2017-02-14] MEDS ORDERED: MTRG45 TOP (15:35)
[2017-02-14] MEDS ORDERED: POTA10CA28 PO (16:29)
[2017-02-14] MEDS ORDERED: MGNO400 PO (16:29)
== END 2016-07-15 17:19 | disposition home or self-care (01) ==
LOC: C.EDB 13:57 → C.EDC 17:19
DX: N39.0 Urinary tract infection, site not specified (principal); F41.9 Anxiety disorder, unspecified; F31.9 Bipolar disorder, unspecified; K21.9 Gastro-esophageal reflux disease without esophagitis

== ENCOUNTER 2016-07-17 13:10 | Emergency (ER) | payer BC, OTHER ==
[~2016-07-17] VITALS: Ht 119.4 cm; Wt 90.5 kg
[~2016-07-17 13:10] MED LIST changes: +FERR1TAB13 PO; -FERR325T51 PO
[2016-07-17 13:17] VITALS: TEMP 36.7; Ht 119.4 cm; Wt 90.5 kg
[2016-07-17] MEDS ORDERED: ERTA1INJ IV (14:18)
[2016-07-17 14:23] LABS: URINE APPEARANCE CLEAR (CLEAR); URINE BILIRUBIN NEG (NEG); URINE COLOR YELLOW; URINE NITRITE NEG (NEG); URINE PH 7.5 (4.5-7.5); UROBILINOGEN NEG (NEG)
[2016-07-17] MEDS ORDERED: HYDROCODONE/ACETAMOPHEN 5/325MG TAB PO PRN (14:24)
[2016-07-17 14:27] LABS: MANUAL MICROSCOPIC REQUIRED? NO; SULFASALICYLIC ACID NEG (NEG); ZZURINE CULT IF INDIC CATH NO
--- NOTE | 2016-07-17 14:29 | EMERGENCY ROOM VISIT NOTE ---
History Report prepared by James: Aixa Nielsen Under the Supervision of: Dr. Andrew Neumann M.D. First contact with patient: 14:21 Chief Complaint: URINARY SYMPTOMS Stated Complaint: BLADDER,KIDNEYS Nursing Triage Summary: pt reports recently being tx for UTI , now started with R side flank pain and kidney pain , + nausea pt has supra pubic cath in place mother also reports healing wound on R stump, no redness, drainage or swelling noted History of Present Illness The patient is a 31 year old female who presents to the Emergency Room with complaints of worsening urinary symptoms for the past 2 days. She is accompanied by her Mother. The patient was diagnosed with a bladder infection 2 days ago. She was prescribed Invanz, to be administered through her A-port and finished the 3rd dose around 1030 this morning. Today, she started experiencing worsening right sided flank pain and nausea. She has a suprapubic catheter and complains of "burning" pain in her bladder, rating the pain as a 10/10. She denies any fevers, vomiting or diarrhea. She also complains of a headache. Her Mother notes she has an ulcer at the base of her right amputation, that she is concerned about. The patient denies any pain and states she cannot feel anything below her knees. 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 Please see Additional Medical History Sheet. Past Medical & Surgical Medical Problems: (1) Allergic reaction caused by a drug (2) Anxiety (3) Bipolar 1 disorder (4) Depression (5) Gastroparesis (6) GERD (gastroesophageal reflux disease) (7) Hydrocephalus (8) Intractable headache (9) Migraines (10) MRSA (methicillin resistant Staphylococcus aureus) (11) Osteomyelitis (12) Shunt placement with revision x8 (13) Spina bifida (14) UTI (urinary tract infection) Surgical Problems: (1) S/P BKA (below knee amputation) bilateral Family History Cancer Diabetes mellitus Lung disease Social History Smoking Status: Never Smoker Alcohol Use: none Drug Use: none Marital Status: single Housing Status: lives with family Occupation Status: unemployed, other Current/Historical Medications Scheduled Aripiprazole (Abilify), 20 MG PO DAILY Cholecalciferol (Vitamin D), 2,000 INTER.UNIT PO DAILY Clonazepam (Klonopin), 0.5 MG PO BID Cyanocobalamin (Vitamin B-12), 1 TAB PO DAILY Docusate Sodium (Dulcolax Stool Softener), 100 MG PO BID Ferrous Sulfate (Kp Ferrous Sulfate), 1 TAB PO BIDM Fluticasone Prop/Salmeterol (Advair Diskus 500/50 60 Dose), 1 PUFF INH BID Gabapentin (Gabapentin), 300 MG PO TID Hydroxyzine Hcl (Atarax), 25 MG PO QD@1200 Hyoscyamine Sulfate (Levsin), 0.125 MG PO QID Levothyroxine Sodium (Bulk) (Levothyroxine Sodium), 25 MCG PO QAM Linaclotide (Linzess), 290 MCG PO DAILY Greeley Carbonate (Greeley Carbonate), 600 MG PO HS [place]ley Carbonate Ext Rel (Lithobid Ext Rel), 450 MG PO QAM Multiple Vitamin (Multivitamin), 1 TAB PO DAILY Nortriptyline Hcl (Pamelor), 100 MG PO HS Pantoprazole (Pantoprazole Sodium), 40 MG PO QAM Polyethylene (Miralax), 17 GM PO BID Ranitidine (Zantac), 150 MG PO HS Sennosides (Senna Lax), 8.6 MG PO DAILY Wound Dressings (Hydrofera Blue Foam Dress), 1 APPLN TOP DAILY Scheduled PRN Acetaminophen (Acetaminophen Extra Stren), 500-1,000 MG PO Q6H PRN for Pain Albuterol Hfa (Ventolin Hfa), 2 PUFFS INH Q4 PRN for Shortness of Breath Eletriptan Hydrobromide (Relpax), 20 MG PO UD PRN for Migraine Hydrocodone/Acetaminophen 5MG/325MG (N[place] 5MG/325MG), 1 TABLET PO Q4 PRN for Pain Hydroxyzine HCl (Hydroxyzine Pamoate), 25 MG PO Q8 PRN for Anxiety Ketorolac Tromethamine (Ketorolac Tromethamine), 10-20 MG PO UD PRN for Headache Magnesium Citrate (Magnesium Citrate), 296 ML PO DAILY PRN for Constipation Magnesium Hydroxide (Milk of Magnesia), 30 ML PO Q6H PRN for Constipation Meclizine HCl (Meclizine HCl), 25 MG PO Q8 PRN for Dizziness or Vertigo Miconazole Nitrate (Desenex Shake Powder), 1 APPLN EXT UD PRN for Affected Skin Folds Nystatin (Topical) (Nystatin), 1 APPLN TOP UD PRN for Yeast Outbreaks Nystatin (Topical) (Nystop), 1 APPLN TOP UD PRN for Skin Irritation Ondansetron (Ondansetron HCl), 4 MG PO DAILY PRN for Nausea Tramadol (Ultram), 50 MG PO Q4H PRN for Pain Miscellaneous Medications Ertapenem Sodium (Invanz), 1 GM IV Allergies Coded Allergies: Adhesives (Verified Allergy, Intermediate, TAPE- HIVES, 07/17/16) Ceftriaxone (Verified Allergy, Intermediate, rash, 07/17/16) Chlorhexidine (Verified Allergy, Intermediate, RASH, 07/17/16) Ciprofloxacin (Unverified Allergy, Intermediate, hives, 07/17/16) Latex (Verified Allergy, Intermediate, hives, 07/17/16) Levofloxacin (Verified Allergy, Intermediate, rash, 07/17/16) Linezolid (Verified Allergy, Intermediate, rash, 07/17/16) Piperacillin (Verified Allergy, Intermediate, SEVERE RASH, HIVES, 07/17/16) Tazobactam (Verified Allergy, Intermediate, SEVERE RASH, HIVES, 07/17/16) Vancomycin (Verified Allergy, Intermediate, rash, 07/17/16) Tobramycin (Verified Allergy, Mild, MILD RASH ON ARM, RED FACE, 07/17/16) IMPROVED AFTER BENADRYL, TAKING REST OF DOSE Amikacin (Verified Allergy, Unknown, PER DR ROBINS,RXN WAS TO ZOSYN NOT AMKrash;hives, 07/17/16) Sulfamethoxazole w/Trimethoprim (Unverified Allergy, Unknown, Hives, ) Can be pretreated with 10mg Zytrec 45 min prior to admin Physical Exam Vital Signs Date Time Temp Pulse Resp B/P Pulse Ox O2 Delivery O2 Flow Rate FiO2 07/17/16 17:17 101 18 113/62 97 07/17/16 16:13 100 18 112/89 98 Room Air 07/17/16 15:07 100 20 117/71 98 Room Air 07/17/16 13:17 36.7 110 20 126/70 97 Room Air Physical Exam GENERAL: Patient awake, alert, oriented x 3. She appears well. Patient follows commands. Patient does not appear toxic. Patient is adequately hydrated and well-nourished. SKIN: No erythema, pallor, cyanosis or rash HEENT: Normal head, pupils equal, reactive to light and accommodation. Ears normal. Oral cavity and posterior pharynx appear normal. Neck: Without adenopathy, no neck vein distention. LUNGS: Clear to auscultation. No wheezes, no rales, no rhonchi. HEART: No murmurs. No gallops. No rubs ABDOMEN: Abdomen is obese. Vague, suprapubic tenderness. No masses, no rebound , no hepatomegaly or splenomegaly. EXTREMITIES: Small healing wound at base of right amputation. No signs of trauma. No pedal or pretibial edema. No calf or thigh tenderness. NEUROLOGIC: Cranial nerves II-XII within normal limits. No gross motor sensory function deficits. Medical Decision & Procedures Laboratory Results 07/17/16 14:45 Red Blood Count 4.12, Mean Corpuscular Volume 96.6, Mean Corpuscular Hemoglobin 30.6, Mean Corpuscular Hemoglobin Concent 31.7, Mean Platelet Volume 10.3, Neutrophils (%) (Auto) 69.8, Lymphocytes (%) (Auto) 20.7, Monocytes (%) (Auto) 5.7, Eosinophils (%) (Auto) 3.2, Basophils (%) (Auto) 0.4, Neutrophils # (Auto) 5.63, Lymphocytes # (Auto) 1.67, Monocytes # (Auto) 0.46, Eosinophils # (Auto) 0.26, Basophils # (Auto) 0.03 07/17/16 14:45 Test 07/17/16 13:48 07/17/16 14:45 Urine Color YELLOW Urine Appearance CLEAR (CLEAR) Urine pH 7.5 (4.5-7.5) Urine Specific [place] 1.010 (1.000-1.030) Urine Protein NEG (NEG) Urine Glucose (UA) NEG (NEG) Urine Ketones NEG (NEG) Urine Occult Blood NEG (NEG) Urine Nitrite NEG (NEG) Urine Bilirubin NEG (NEG) Urine Urobilinogen NEG (NEG) Urine Leukocyte Esterase TRACE (NEG) Urine WBC (Auto) 5-10 /hpf (0-5) Urine RBC (Auto) 0-4 /hpf (0-4) Urine Hyaline Casts (Auto) 1-5 /lpf (0-5) Urine Epithelial Cells (Auto) >30 /lpf (0-5) Urine Bacteria (Auto) NEG (NEG) White Blood Count 8.07 K/uL (4.8-10.8) Red Blood Count 4.12 M/uL (4.2-5.4) Hemoglobin 12.6 g/dL (12.0-16.0) Hematocrit 39.8 % (37-47) Mean Corpuscular Volume 96.6 fL (80-100) Mean Corpuscular Hemoglobin 30.6 pg (25-34) Mean Corpuscular Hemoglobin Concent 31.7 g/dl (32-36) Platelet Count 138 K/uL (130-400) Mean Platelet Volume 10.3 fL (7.4-10.4) Neutrophils (%) (Auto) 69.8 % Lymphocytes (%) (Auto) 20.7 % Monocytes (%) (Auto) 5.7 % Eosinophils (%) (Auto) 3.2 % Basophils (%) (Auto) 0.4 % Neutrophils # (Auto) 5.63 K/uL (1.4-6.5) Lymphocytes # (Auto) 1.67 K/uL (1.2-3.4) Monocytes # (Auto) 0.46 K/uL (0.11-0.59) Eosinophils # (Auto) 0.26 K/uL (0-0.5) Basophils # (Auto) 0.03 K/uL (0-0.2) RDW Standard Deviation 54.3 fL (36.4-46.3) RDW Coefficient of Variation 15.4 % (11.5-14.5) Immature Granulocyte % (Auto) 0.2 % Immature Granulocyte # (Auto) 0.02 K/uL (0.00-0.02) Anion Gap 8.0 mmol/L (3-11) Est Creatinine Clear Calc Drug Dose 79.6 ml/min Estimated GFR () 124.8 Estimated GFR (Non- 107.7 BUN/Creatinine Ratio 10.0 (10-20) Calcium Level 8.5 mg/dl (8.5-10.1) Laboratory results as stated above per my review. Medications Administered Medications (Trade) Dose Ordered Sig/Brenna Route Start Time Stop Time Status Last Admin Dose Admin Acetaminophen/ Hydrocodone Bitart ([place] 5/325 Tab) 1 tab 1424 PRN PO 07/17/16 14:24 2 14:23 07/17/16 14:36 1 TAB Albuterol (Ventolin Hfa Inhaler) 60 puffs STK-MED ONCE INH 07/17/16 15:53 07/17/16 15:55 DC 07/17/16 15:53 2 PUFFS Heparin Sodium (Porcine) (Heparin 100 Unit/ml 5ml Flush) 5 ml STK-MED ONCE .ROUTE 07/17/16 17:14 07/17/16 17:15 DC 07/17/16 17:14 5 ML ED Course 1422: Past medical records reviewed. The patient was evaluated in room B2. A complete history and physical examination was performed. 1424: [place] 5/325 mg 1 tab PO. 1550: Nursing informed me the patient is experiencing some wheezing. I will put in orders. 1554: Albuterol 2 puffs INH. 1651: I reevaluated the patient. She is resting comfortably. I discussed her results and discharge instructions and she and her mother verbalized complete understanding and agreement. Medical Decision The differential diagnoses considered include: UTI and leg ulcer. The patient is here with pain which she believes is related to her bladder. The patient is afebrile with a normal white count. Urinalysis reveals only a few white cells and no bacteria. The patient was given one [place] for her pain and 2 puffs of Ventolin for her wheezing. I discussed options with the patient and her mother. We've agreed to continue Invanz at home. The patient is to call Dr. Robins tomorrow for further advice regarding any antibiotic changes. The patient was given 10 [place] as needed for pain [place] Drug Monitoring Program Search Results: no issues identified Impression Primary Impression: Pelvic pain Scribe Attestation The scribe's documentation has been prepared under my direction and personally reviewed by me in its entirety. I confirm that the note above accurately reflects all work, treatment, procedures, and medical decision making performed by me. Departure Information Dispostion Home / Self-Care Prescriptions Hydrocodone/Acetaminophen 5MG/325MG (N[place] 5MG/325MG) Tab 1 TABLET PO Q4 Y for Pain, #10 TAB Prov: Andrew Neumann M.D. 07/17/16 Referrals Darvin Lea D.O.Int.Med. (PCP) Patient Instructions My [facility] Additional Instructions Continue all of your current medications as prescribed. One [place] every 4-6 hours as needed for moderate to severe pain. Call Dr. Robins's office tomorrow for further advice.
[2016-07-17 14:55] LABS: BASO % 0.4 %; BASO ABS # 0.03 K/uL (0-0.2); COMPLETE YES; EOS % 3.2 %; HEMATOCRIT 39.8 % (37-47); IG% 0.2 %; LYMPH % 20.7 %; LYMPH ABS # 1.67 K/uL (1.2-3.4); MEAN CELL VOLUME 96.6 fL (80-100); MEAN CORPUSCULAR HEMOGLOBIN 30.6 pg (25-34); MEAN CORPUSCULAR HGB CONC 31.7 g/dl (32-36); MEAN PLATELET VOLUME 10.3 fL (7.4-10.4); MONO % 5.7 %; NEUT % 69.8 %; PLATELET COUNT 138 K/uL (130-400); RED BLOOD COUNT 4.12 M/uL (4.2-5.4); WHITE BLOOD COUNT 8.07 K/uL (4.8-10.8)
[2016-07-17 15:12] LABS: CALCIUM 8.5 mg/dl (8.5-10.1); CREATININE 0.75 mg/dl (0.60-1.20); POTASSIUM 3.3 mmol/L (3.5-5.1)
[2016-07-17] MEDS ORDERED: ALBUTEROL HFA 8 GM INHALER INH ONE (15:53)
[2016-07-17] MEDS ORDERED: ALBUTEROL HFA 8 GM INHALER INH STA (15:54)
[2016-07-17 16:09] LABS: REVIEW REQ? YES; URINE EPITHELIAL CELL AUTO >30 /lpf (0-5)
[2016-07-17] MEDS ORDERED: HYDR-5688 PO (17:01)
[2016-07-17 17:17] VITALS: BP 113/62; PULSE 101; O2SAT 97
--- NOTE | 2016-07-22 15:54 | Pharmacy Progress Note ---
ED Pharmacist Progress Note Date of Service: Jul 22, 2016. Received phone call from patient stating she received a message from Agnes Caicedo asking that she call her back. She was not sure what the call was regarding. The patient's last visit note was reviewed. It appears that she was dx with UTI and leg ulcer and arrangements were made for home Invanz and f/ u with Dr Charlton. The patient stated she is seeing Dr Charlton, she is no longer on the Invanz because Dr Charlton has adjusted her ABX regimen. I could not find documentation to clarify the reason for today's phone call.
[2016-09-02] MEDS ORDERED: CLC/300 PO (07:49)
[2016-09-23] MEDS ORDERED: TOPI50TA16 PO (10:28)
[2016-09-23] MEDS ORDERED: INDO-22 PO (10:28)
[2016-09-23] MEDS ORDERED: ARIP30TA3 PO (10:28)
[2016-09-26] MEDS ORDERED: ERTA1INJ IV (15:06)
[2016-10-26] MEDS ORDERED: [UNRECOGNIZED DRUG - CODE] IV (15:52)
[2016-10-26] MEDS ORDERED: MCRK20 PO (16:06)
[2016-11-17] MEDS ORDERED: BND25 PO (14:33)
[2016-11-18] MEDS ORDERED: XRL10 PO (10:36)
[2016-11-18] MEDS ORDERED: CPR500 PO (10:36)
[2016-12-28] MEDS ORDERED: DFL100 PO (10:32)
[2017-01-11] MEDS ORDERED: LEVO25TA5 PO (13:23)
[2017-01-11] MEDS ORDERED: BENZ100C84 PO (16:58)
[2017-01-11] MEDS ORDERED: XPNINS NEB (17:08)
[2017-01-14] MEDS ORDERED: [UNRECOGNIZED DRUG - CODE] IART (10:53)
[2017-01-14] MEDS ORDERED: RIVA1.5T PO (12:41)
[2017-02-10] MEDS ORDERED: CHOL200010 PO (13:04)
[2017-02-10] MEDS ORDERED: ADVIN50/60 INH (13:04)
[2017-02-10] MEDS ORDERED: NRT/25 PO (13:23)
[2017-02-10] MEDS ORDERED: MGRSP NAE (13:52)
[2017-02-10] MEDS ORDERED: MECL1TAB42 PO (13:52)
[2017-02-10] MEDS ORDERED: WOUN1PAD EXT (13:52)
[2017-02-10] MEDS ORDERED: VTMB12 PO (15:08)
[2017-02-10] MEDS ORDERED: PRT/40 PO (16:40)
[2017-02-10] MEDS ORDERED: GABA1CAP4 PO (16:40)
[2017-02-10] MEDS ORDERED: HYOS1TAB PO (16:40)
[2017-02-10] MEDS ORDERED: LINA1CAP2 PO (16:40)
[2017-02-10] MEDS ORDERED: LITH1TAB PO (16:58)
[2017-02-10] MEDS ORDERED: SNG10 PO (16:58)
[2017-02-10] MEDS ORDERED: INDO1CAP34 PO (16:58)
[2017-02-10] MEDS ORDERED: RSP1 PO (16:58)
[2017-02-10] MEDS ORDERED: ULT50 PO (17:26)
[2017-02-10] MEDS ORDERED: ONDA4TAB10 SL (17:26)
[2017-02-10] MEDS ORDERED: FERR325T PO (17:26)
[2017-02-10] MEDS ORDERED: CLON0.5T3 PO (17:27)
[2017-02-10] MEDS ORDERED: SENN8.6T13 PO (17:28)
[2017-02-10] MEDS ORDERED: DOCU-105 PO (17:35)
[2017-02-10] MEDS ORDERED: MULTTAB58 PO (18:07)
[2017-02-10] MEDS ORDERED: LEVO50TA6 PO (18:32)
[2017-02-10] MEDS ORDERED: NORT75CA PO (18:38)
[2017-02-10] MEDS ORDERED: VST25HP PO (18:40)
[2017-02-10] MEDS ORDERED: [UNRECOGNIZED DRUG - CODE] PO (19:25)
[2017-02-10] MEDS ORDERED: NYST100010 TOP (20:28)
[2017-02-10] MEDS ORDERED: MISCCAP80 PO (20:28)
[2017-02-10] MEDS ORDERED: TOPI1CAP3 PO (20:28)
[2017-02-10] MEDS ORDERED: LITH600C PO (22:29)
[2017-02-10] MEDS ORDERED: ALBU18002 INH (22:29)
[2017-02-10] MEDS ORDERED: CGN1X PO (22:29)
[2017-02-14] MEDS ORDERED: [UNRECOGNIZED DRUG - CODE] IV (15:35)
[2017-02-14] MEDS ORDERED: XRL20 PO (15:35)
[2017-02-14] MEDS ORDERED: MTRG45 TOP (15:35)
[2017-02-14] MEDS ORDERED: PRT/40 PO (15:35)
[2017-02-14] MEDS ORDERED: MGNO400 PO (16:29)
[2017-02-14] MEDS ORDERED: POTA10CA28 PO (16:29)
== END 2016-07-17 17:36 | disposition home or self-care (01) ==
LOC: C.EDB 13:12
DX: R10.2 Pelvic and perineal pain (principal); L97.919 Non-pressure chronic ulcer of unspecified part of right lower leg with unspecified severity; Q05.9 Spina bifida, unspecified; Z89.511 Acquired absence of right leg below knee; Z89.512 Acquired absence of left leg below knee; K21.9 Gastro-esophageal reflux disease without esophagitis; G43.909 Migraine, unspecified, not intractable, without status migrainosus; K31.84 Gastroparesis; F31.9 Bipolar disorder, unspecified; M86.9 Osteomyelitis, unspecified; F41.9 Anxiety disorder, unspecified; Z86.14 Personal history of Methicillin resistant Staphylococcus aureus infection; Z80.9 Family history of malignant neoplasm, unspecified; Z83.3 Family history of diabetes mellitus; Z83.6 Family history of other diseases of the respiratory system; Z79.2 Long term (current) use of antibiotics; Z79.899 Other long term (current) drug therapy

== ENCOUNTER 2016-07-24 11:04 | Emergency (ER) | payer BC, OTHER ==
[~2016-07-24] VITALS: Ht 116.8 cm; Wt 90.0 kg
[~2016-07-24 11:04] MED LIST changes: +ERTA1INJ IV; +HYDR-5688 PO
[2016-07-24 11:12] VITALS: Ht 116.8 cm; Wt 90.0 kg
[2016-07-24] MEDS ORDERED: MCRB100HP PO (11:56)
[2016-07-24] MEDS ORDERED: DOXY100C2 PO (11:56)
[2016-07-24] MEDS ORDERED: HYDROCODONE/ACETAMOPHEN 5/325MG TAB PO STA (12:19)
[2016-07-24] MEDS ORDERED: SODIUM CHLORIDE 0.9% 1000ML 1,000 ML IV STA (12:19)
--- NOTE | 2016-07-24 12:22 | EMERGENCY ROOM VISIT NOTE ---
History Report prepared by James: Benedict Maldonado Under the Supervision of: Dr. Nikolas Mejia M.D. First contact with patient: 12:10 Chief Complaint: URINARY SYMPTOMS Stated Complaint: UTI History of Present Illness The patient is a 31 year old female who presents to the Emergency Room with complaints of persistent urinary symptoms that started a month ago. She has been here 3 or 4 times for the same problem. The patient says she has a "nasty bug" in her bladder and she has excruciating pain in her lower abdomen from it. The patient states that the pain has not changed even after being on 2 antibiotics (Doxycycline and Macrobid). She takes Tramadol at home. When she was here a few days ago, she was prescribed pain medications, but it was late on a Monday night, so the pharmacy was not open, and she never got the pills. The patient says the pain today is much worse. She denies any diarrhea. The patient has been compliant with all her other medications. The patient has a port on her right side. Source of History: patient Onset: A month ago Position: other (bladder - pain) Symptom Intensity: excruciating Timing: other (persistent) Associated Symptoms: + abdominal pain, No diarrhea Note: No other associated symptoms noted. Review of Systems See HPI for pertinent positives & negatives. A total of 10 systems reviewed and were otherwise negative. Past Medical & Surgical Medical Problems: (1) Allergic reaction caused by a drug (2) Anxiety (3) Bipolar 1 disorder (4) Depression (5) Gastroparesis (6) GERD (gastroesophageal reflux disease) (7) Hydrocephalus (8) Intractable headache (9) Migraines (10) MRSA (methicillin resistant Staphylococcus aureus) (11) Osteomyelitis (12) Shunt placement with revision x8 (13) Spina bifida (14) UTI (urinary tract infection) Surgical Problems: (1) S/P BKA (below knee amputation) bilateral Family History Cancer Diabetes mellitus Lung disease Social History Smoking Status: Never Smoker Alcohol Use: none Drug Use: none Marital Status: single Housing Status: lives with family Occupation Status: unemployed, other Current/Historical Medications Scheduled Aripiprazole (Abilify), 20 MG PO DAILY Cholecalciferol (Vitamin D), 2,000 INTER.UNIT PO LUNCH Clonazepam (Klonopin), 0.5 MG PO BID Cyanocobalamin (Vitamin B-12), 1 TAB PO LUNCH Docusate Sodium (Dulcolax Stool Softener), 100 MG PO BID Doxycycline Hyclate (Vibramycin), 100 MG PO BID Ferrous Sulfate (Kp Ferrous Sulfate), 1 TAB PO BIDM Fluticasone Prop/Salmeterol (Advair Diskus 500/50 60 Dose), 1 PUFF INH BID Gabapentin (Gabapentin), 300 MG PO TID Hydroxyzine Hcl (Atarax), 25 MG PO QD@1200 Hyoscyamine Sulfate (Levsin), 0.125 MG PO QID Levothyroxine Sodium (Bulk) (Levothyroxine Sodium), 25 MCG PO QAM Linaclotide (Linzess), 290 MCG PO QAM Hailey Carbonate (Hailey Carbonate), 600 MG PO HS Hailey Carbonate Ext Rel (Lithobid Ext Rel), 450 MG PO QAM Multiple Vitamin (Multivitamin), 1 TAB PO DAILY Nitrofurantoin (Nitrofurantoin Monohydrat), 1 CAP PO BID Nortriptyline Hcl (Pamelor), 100 MG PO HS Pantoprazole (Pantoprazole Sodium), 40 MG PO QAM Polyethylene (Miralax), 17 GM PO BID Ranitidine (Zantac), 150 MG PO HS Sennosides (Senna Lax), 8.6 MG PO DAILY Wound Dressings (Hydrofera Blue Foam Dress), 1 APPLN TOP DAILY Scheduled PRN Acetaminophen (Acetaminophen Extra Stren), 500-1,000 MG PO Q6H PRN for Pain Albuterol Hfa (Ventolin Hfa), 2 PUFFS INH Q4 PRN for Shortness of Breath Eletriptan Hydrobromide (Relpax), 20 MG PO UD PRN for Migraine Hydrocodone/Acetaminophen 5MG/325MG (Sw[place] 5MG/325MG), 1 TABLET PO Q4 PRN for Pain Hydroxyzine HCl (Hydroxyzine Pamoate), 25 MG PO Q8 PRN for Anxiety Ketorolac Tromethamine (Ketorolac Tromethamine), 10-20 MG PO UD PRN for Headache Magnesium Citrate (Magnesium Citrate), 296 ML PO DAILY PRN for Constipation Magnesium Hydroxide (Milk of Magnesia), 30 ML PO Q6H PRN for Constipation Meclizine HCl (Meclizine HCl), 25 MG PO Q8 PRN for Dizziness or Vertigo Miconazole Nitrate (Desenex Shake Powder), 1 APPLN EXT UD PRN for Affected Skin Folds Nystatin (Topical) (Nystatin), 1 APPLN TOP UD PRN for Yeast Outbreaks Nystatin (Topical) (Nystop), 1 APPLN TOP UD PRN for Skin Irritation Ondansetron (Ondansetron HCl), 4 MG PO DAILY PRN for Nausea Tramadol (Ultram), 50 MG PO Q4H PRN for Pain Miscellaneous Medications Ertapenem Sodium (Invanz), 1 GM IV Allergies Coded Allergies: Adhesives (Verified Allergy, Intermediate, TAPE- HIVES, 07/24/16) Ceftriaxone (Verified Allergy, Intermediate, rash, 07/24/16) Chlorhexidine (Verified Allergy, Intermediate, RASH, 07/24/16) Ciprofloxacin (Unverified Allergy, Intermediate, hives, 07/24/16) Latex (Verified Allergy, Intermediate, hives, 07/24/16) Levofloxacin (Verified Allergy, Intermediate, rash, 07/24/16) Linezolid (Verified Allergy, Intermediate, rash, 07/24/16) Piperacillin (Verified Allergy, Intermediate, SEVERE RASH, HIVES, 07/24/16) Tazobactam (Verified Allergy, Intermediate, SEVERE RASH, HIVES, 07/24/16) Vancomycin (Verified Allergy, Intermediate, rash, 07/24/16) Tobramycin (Verified Allergy, Mild, MILD RASH ON ARM, RED FACE, 07/24/16) IMPROVED AFTER BENADRYL, TAKING REST OF DOSE Amikacin (Verified Allergy, Unknown, PER DR ROBINS,RXN WAS TO ZOSYN NOT AMKrash;hives, 07/24/16) Sulfamethoxazole w/Trimethoprim (Unverified Allergy, Unknown, Hives, ) Can be pretreated with 10mg Zytrec 45 min prior to admin Physical Exam Vital Signs Date Time Temp Pulse Resp B/P Pulse Ox O2 Delivery O2 Flow Rate FiO2 07/24/16 14:48 101 20 130/91 99 Room Air 07/24/16 12:59 97 18 103/75 98 Room Air 07/24/16 11:12 104 20 131/79 98 Room Air Physical Exam GENERAL: Patient is uncomfortable appearing and in mild distress. HEENT: No acute trauma, normocephalic atraumatic, mucous membranes moist, no nasal congestion, no scleral icterus. NECK: No stridor, no adenopathy, no meningismus, trachea is midline. LUNGS: No dyspnea. Clear to auscultation and equal bilaterally. No wheeze, no rhonchi. HEART: Regular rate and rhythm. No murmurs, rubs, gallops appreciated. ABDOMEN: Soft, nontender, bowel sounds positive, no masses appreciated, no peritonitis. Suprapubic catheter. BACK: No midline tenderness, no CVA tenderness EXTREMITIES: Bilateral lower leg amputations, moderate erythema bilaterally. Upper extremities normal. NEUROLOGIC: Alert and oriented, no acute motor or sensory deficits, no focal weakness, cranial nerves grossly intact. SKIN: No rash, no jaundice, no diaphoresis. Medical Decision & Procedures Laboratory Results 07/24/16 13:20 Red Blood Count 4.08, Mean Corpuscular Volume 97.5, Mean Corpuscular Hemoglobin 31.1, Mean Corpuscular Hemoglobin Concent 31.9, Mean Platelet Volume 10.6, Neutrophils (%) (Auto) 70.1, Lymphocytes (%) (Auto) 18.4, Monocytes (%) (Auto) 6.6, Eosinophils (%) (Auto) 4.4, Basophils (%) (Auto) 0.2, Neutrophils # (Auto) 6.38, Lymphocytes # (Auto) 1.67, Monocytes # (Auto) 0.60, Eosinophils # (Auto) 0.40, Basophils # (Auto) 0.02 07/24/16 13:20 Test 07/24/16 12:50 07/24/16 13:20 Urine Color DK YELLOW Urine Appearance CLEAR (CLEAR) Urine pH 7.5 (4.5-7.5) Urine Specific [place] 1.017 (1.000-1.030) Urine Protein NEG (NEG) Urine Glucose (UA) NEG (NEG) Urine Ketones NEG (NEG) Urine Occult Blood 1+ (NEG) Urine Nitrite NEG (NEG) Urine Bilirubin NEG (NEG) Urine Urobilinogen NEG (NEG) Urine Leukocyte Esterase MODERATE (NEG) Urine WBC (Auto) 10-30 /hpf (0-5) Urine RBC (Auto) 10-30 /hpf (0-4) Urine Hyaline Casts (Auto) 1-5 /lpf (0-5) Urine Epithelial Cells (Auto) >30 /lpf (0-5) Urine Bacteria (Auto) NEG (NEG) Urine Test NEG (NEG) White Blood Count 9.10 K/uL (4.8-10.8) Red Blood Count 4.08 M/uL (4.2-5.4) Hemoglobin 12.7 g/dL (12.0-16.0) Hematocrit 39.8 % (37-47) Mean Corpuscular Volume 97.5 fL (80-100) Mean Corpuscular Hemoglobin 31.1 pg (25-34) Mean Corpuscular Hemoglobin Concent 31.9 g/dl (32-36) Platelet Count 189 K/uL (130-400) Mean Platelet Volume 10.6 fL (7.4-10.4) Neutrophils (%) (Auto) 70.1 % Lymphocytes (%) (Auto) 18.4 % Monocytes (%) (Auto) 6.6 % Eosinophils (%) (Auto) 4.4 % Basophils (%) (Auto) 0.2 % Neutrophils # (Auto) 6.38 K/uL (1.4-6.5) Lymphocytes # (Auto) 1.67 K/uL (1.2-3.4) Monocytes # (Auto) 0.60 K/uL (0.11-0.59) Eosinophils # (Auto) 0.40 K/uL (0-0.5) Basophils # (Auto) 0.02 K/uL (0-0.2) RDW Standard Deviation 53.3 fL (36.4-46.3) RDW Coefficient of Variation 15.0 % (11.5-14.5) Immature Granulocyte % (Auto) 0.3 % Immature Granulocyte # (Auto) 0.03 K/uL (0.00-0.02) Anion Gap 11.0 mmol/L (3-11) Est Creatinine Clear Calc Drug Dose 86.0 ml/min Estimated GFR () 137.7 Estimated GFR (Non- 118.8 BUN/Creatinine Ratio 12.5 (10-20) Calcium Level 8.5 mg/dl (8.5-10.1) Magnesium Level 2.2 mg/dl (1.8-2.4) Total Bilirubin 0.3 mg/dl (0.2-1) Direct Bilirubin < 0.1 mg/dl (0-0.2) Aspartate Amino Transf (AST/SGOT) 16 U/L (15-37) Alanine Aminotransferase (ALT/SGPT) 29 U/L (12-78) Alkaline Phosphatase 92 U/L (45-117) Total Protein 6.5 gm/dl (6.4-8.2) Albumin 2.9 gm/dl (3.4-5.0) Lipase 73 U/L (73-393) Hailey Level 0.8 mMOL/L (0.6-1.2) Laboratory results as reviewed by me. Medications Administered Medications (Trade) Dose Ordered Sig/Brenna Route Start Time Stop Time Status Last Admin Dose Admin Sodium Chloride (Nss 1000ml) 1,000 ml @ 999 mls/hr Q1H1M STAT IV 07/24/16 12:19 07/24/16 13:19 DC 07/24/16 12:19 999 MLS/HR Acetaminophen/ Hydrocodone Bitart ([place] 5/325 Tab) 1 tab NOW STAT PO 07/24/16 12:19 07/24/16 12:21 DC 07/24/16 12:58 1 TAB Acetaminophen/ Hydrocodone Bitart ([place] 5/325mg Home Pack) 1 homepack UD ONCE PO 07/24/16 14:45 07/24/16 14:46 DC 07/24/16 14:48 1 HOMEPACK ED Course 1212: The patient was evaluated in room C2B. A complete history and physical exam was performed. 1219: Ordered Sw[place] 5/325 Tab 1 tab PO, NSS 1000 ml @ 999 mls/hr IV. 1439: I reevaluated the patient and he would like to go home. He will follow up with his primary care physician. The patient verbally expressed understanding and agreement of the treatment plan. The patient will be discharged. 1445: Ordered [place] 5/325mg Home Pack 1 homepack PO. Medical Decision Differential: UTI, Urethritis, Pyelonephritis, Yeast, Sepsis, amongst other pathologies entertained. 31 yr old female with several weeks pelvic discomfort being treated for UTI. Previous CT a few months ago for similar. Known MDR UTI on several abx over last few weeks. No fevers, WBC normal, not vomiting and not septic appearing. No Bacteria in Urine but is a bit dirty. Will send culture though hold on changing abx given her many allergies. She is tolerating PO and in really minimal distress. Will follow up with PCP. Discussed symptoms requiring RTED. Stable at discharge. Impression Primary Impression: Lower abdominal pain Scribe Attestation The scribe's documentation has been prepared under my direction and personally reviewed by me in its entirety. I confirm that the note above accurately reflects all work, treatment, procedures, and medical decision making performed by me. Departure Information Dispostion Home / Self-Care Referrals Darvin Lea D.O.Int.Med. (PCP) Patient Instructions Abdominal Pain - [facility], My [facility] Additional Instructions You have received a narcotic pain medication. These medications may cause drowsiness and should not be used with other sedative medications. Do not drive , drink alcohol, perform dangerous activities, nor make important decisions after taking these medications. truck terminal manager use or inappropriate use may lead to addiction.
[2016-07-24 13:04] LABS: URINE APPEARANCE CLEAR (CLEAR); URINE BILIRUBIN NEG (NEG); URINE COLOR DK YELLOW; URINE EPITHELIAL CELL AUTO >30 /lpf (0-5); URINE NITRITE NEG (NEG); URINE PH 7.5 (4.5-7.5); URINE SPECIFIC GRAVITY 1.017 (1.000-1.030); UROBILINOGEN NEG (NEG); ZZUR CULT IF INDIC CLEAN CATCH YES
[2016-07-24 13:07] LABS: MANUAL MICROSCOPIC REQUIRED? NO; REVIEW REQ? NO
[2016-07-24 13:30] LABS: BASO % 0.2 %; BASO ABS # 0.02 K/uL (0-0.2); COMPLETE YES; EOS % 4.4 %; HEMATOCRIT 39.8 % (37-47); IG% 0.3 %; LYMPH % 18.4 %; LYMPH ABS # 1.67 K/uL (1.2-3.4); MEAN CELL VOLUME 97.5 fL (80-100); MEAN CORPUSCULAR HEMOGLOBIN 31.1 pg (25-34); MEAN CORPUSCULAR HGB CONC 31.9 g/dl (32-36); MEAN PLATELET VOLUME 10.6 fL (7.4-10.4); MONO % 6.6 %; NEUT % 70.1 %; PLATELET COUNT 189 K/uL (130-400); RED BLOOD COUNT 4.08 M/uL (4.2-5.4)
[2016-07-24 13:52] LABS: ALT/SGPT 29 U/L (12-78); AST/SGOT 16 U/L (15-37); BLOOD UREA NITROGEN 8 mg/dl (7-18); BUN/CREATININE RATIO 12.5 (10-20); CALCIUM 8.5 mg/dl (8.5-10.1); CARBON DIOXIDE 26 mmol/L (21-32); CHLORIDE 110 mmol/L (98-107); CREATININE 0.67 mg/dl (0.60-1.20); GLUCOSE 116 mg/dl (70-99); MAGNESIUM 2.2 mg/dl (1.8-2.4); POTASSIUM 3.1 mmol/L (3.5-5.1); SODIUM 147 mmol/L (136-145)
[2016-07-24 13:55] LABS: ALKALINE PHOSPHATASE 92 U/L (45-117)
[2016-07-24] MEDS ORDERED: NORCO 5/325MG HOME PACK PO ONE (14:45)
[2016-07-24 14:48] VITALS: BP 130/91; PULSE 101; O2SAT 99
[2016-09-02] MEDS ORDERED: CLC/300 PO (07:49)
[2016-09-23] MEDS ORDERED: TOPI50TA16 PO (10:28)
[2016-09-23] MEDS ORDERED: ARIP30TA3 PO (10:28)
[2016-09-23] MEDS ORDERED: INDO-22 PO (10:28)
[2016-09-26] MEDS ORDERED: ERTA1INJ IV (15:06)
[2016-10-26] MEDS ORDERED: [UNRECOGNIZED DRUG - CODE] IV (15:52)
[2016-10-26] MEDS ORDERED: MCRK20 PO (16:06)
[2016-11-17] MEDS ORDERED: BND25 PO (14:33)
[2016-11-18] MEDS ORDERED: CPR500 PO (10:36)
[2016-11-18] MEDS ORDERED: XRL10 PO (10:36)
[2016-12-28] MEDS ORDERED: DFL100 PO (10:32)
[2017-01-11] MEDS ORDERED: LEVO25TA5 PO (13:23)
[2017-01-11] MEDS ORDERED: BENZ100C84 PO (16:58)
[2017-01-11] MEDS ORDERED: XPNINS NEB (17:08)
[2017-01-14] MEDS ORDERED: [UNRECOGNIZED DRUG - CODE] IART (10:53)
[2017-01-14] MEDS ORDERED: RIVA1.5T PO (12:41)
[2017-02-10] MEDS ORDERED: ADVIN50/60 INH (13:04)
[2017-02-10] MEDS ORDERED: CHOL200010 PO (13:04)
[2017-02-10] MEDS ORDERED: NRT/25 PO (13:23)
[2017-02-10] MEDS ORDERED: WOUN1PAD EXT (13:52)
[2017-02-10] MEDS ORDERED: MECL1TAB42 PO (13:52)
[2017-02-10] MEDS ORDERED: MGRSP NAE (13:52)
[2017-02-10] MEDS ORDERED: VTMB12 PO (15:08)
[2017-02-10] MEDS ORDERED: HYOS1TAB PO (16:40)
[2017-02-10] MEDS ORDERED: GABA1CAP4 PO (16:40)
[2017-02-10] MEDS ORDERED: PRT/40 PO (16:40)
[2017-02-10] MEDS ORDERED: LINA1CAP2 PO (16:40)
[2017-02-10] MEDS ORDERED: INDO1CAP34 PO (16:58)
[2017-02-10] MEDS ORDERED: SNG10 PO (16:58)
[2017-02-10] MEDS ORDERED: RSP1 PO (16:58)
[2017-02-10] MEDS ORDERED: LITH1TAB PO (16:58)
[2017-02-10] MEDS ORDERED: FERR325T PO (17:26)
[2017-02-10] MEDS ORDERED: ULT50 PO (17:26)
[2017-02-10] MEDS ORDERED: ONDA4TAB10 SL (17:26)
[2017-02-10] MEDS ORDERED: CLON0.5T3 PO (17:27)
[2017-02-10] MEDS ORDERED: SENN8.6T13 PO (17:28)
[2017-02-10] MEDS ORDERED: DOCU-105 PO (17:35)
[2017-02-10] MEDS ORDERED: MULTTAB58 PO (18:07)
[2017-02-10] MEDS ORDERED: LEVO50TA6 PO (18:32)
[2017-02-10] MEDS ORDERED: NORT75CA PO (18:38)
[2017-02-10] MEDS ORDERED: VST25HP PO (18:40)
[2017-02-10] MEDS ORDERED: [UNRECOGNIZED DRUG - CODE] PO (19:25)
[2017-02-10] MEDS ORDERED: MISCCAP80 PO (20:28)
[2017-02-10] MEDS ORDERED: NYST100010 TOP (20:28)
[2017-02-10] MEDS ORDERED: TOPI1CAP3 PO (20:28)
[2017-02-10] MEDS ORDERED: CGN1X PO (22:29)
[2017-02-10] MEDS ORDERED: LITH600C PO (22:29)
[2017-02-10] MEDS ORDERED: ALBU18002 INH (22:29)
[2017-02-14] MEDS ORDERED: XRL20 PO (15:35)
[2017-02-14] MEDS ORDERED: PRT/40 PO (15:35)
[2017-02-14] MEDS ORDERED: [UNRECOGNIZED DRUG - CODE] IV (15:35)
[2017-02-14] MEDS ORDERED: MTRG45 TOP (15:35)
[2017-02-14] MEDS ORDERED: MGNO400 PO (16:29)
[2017-02-14] MEDS ORDERED: POTA10CA28 PO (16:29)
== END 2016-07-24 14:50 | disposition home or self-care (01) ==
LOC: C.EDB 11:06 → C.EDC 14:50
DX: R10.30 Lower abdominal pain, unspecified (principal); F31.9 Bipolar disorder, unspecified; F41.9 Anxiety disorder, unspecified; K21.9 Gastro-esophageal reflux disease without esophagitis; Z79.899 Other long term (current) drug therapy; Z88.1 Allergy status to other antibiotic agents; Z88.2 Allergy status to sulfonamides; Z88.8 Allergy status to other drugs, medicaments and biological substances; Z91.040 Latex allergy status; Z86.14 Personal history of Methicillin resistant Staphylococcus aureus infection; Z87.19 Personal history of other diseases of the digestive system; Z87.440 Personal history of urinary (tract) infections; Z89.511 Acquired absence of right leg below knee; Z89.512 Acquired absence of left leg below knee; Z83.3 Family history of diabetes mellitus; Z83.6 Family history of other diseases of the respiratory system

== ENCOUNTER → 2016-07-30 | Outpatient (CLI) | payer BC, OTHER ==
[~2016-07-30] MED LIST changes: +ABL10 PO; +ADVIN50/60 INH; +ALBU18002 INH; +ARIP1TAB PO; +ARIP30TA3 PO; +BENZ100C7 PO; +BENZ100C84 PO; +BND25 PO; +BUSP5TAB59 PO; +CGN1X PO; +CHOL200010 PO; +CLC/300 PO; +CLON0.5T3 PO; +CPR500 PO; +DFL100 PO; +DOCU100C31 PO; +DOXY100C2 PO; +FERR325T PO; +FLUC100T4 PO; +GABA1CAP4 PO; +GUAI1TAB68 PO; +HYDR-3124 PO; +HYOS1TAB PO; +INDO-22 PO; +INDO1CAP34 PO; +LEVO25TA5 PO; +LEVO50TA6 PO; +LINA1CAP2 PO; +LITH600C PO; +LTHSR450 PO; +MCRB100 PO; +MCRB100HP PO; +MCRK20 PO; +MECL1TAB42 PO; +MGNO400 PO; +MGRSP NAE; +MICO1POW8 TOP; +MISCCAP80 PO; +MTRG45 TOP; +MULTTAB58 PO; +NITR-5 PO; +NORE-38 PO; +NORE-39 PO; +NORT75CA PO; +NRT/25 PO; +NYSTCRE11; +ONDA4TAB10 SL; +POTA10CA28 PO; +PROB1TAB16 PO; +PRT/40 PO; +RISP1TAB3 PO; +RISP1TAB68 PO; +RIVA1.5T PO; +RSP1 PO; +SNG10 PO; +TOPI1CAP3 PO; +TOPI25TA99 PO; +TOPI50TA16 PO; +TPM25 PO; +ULT50 PO; +VTMB12 PO; +WOUN1PAD EXT; +XPNINS NEB; +XRL10 PO; +XRL15 PO; +XRL20 PO; +ZNT/150 PO; +[UNRECOGNIZED DRUG - CODE] IART; +[UNRECOGNIZED DRUG - CODE] IV; +[UNRECOGNIZED DRUG - CODE] IV; +[UNRECOGNIZED DRUG - CODE] IV; +[UNRECOGNIZED DRUG - CODE] PO
[2016-07-30 13:32] LABS: URINE APPEARANCE CLEAR (CLEAR); URINE BILIRUBIN NEG (NEG); URINE COLOR YELLOW; URINE NITRITE NEG (NEG); URINE PH 8.5 (4.5-7.5); URINE SPECIFIC GRAVITY 1.008 (1.000-1.030); UROBILINOGEN NEG (NEG)
[2016-07-30 13:42] LABS: BLOOD UREA NITROGEN 16 mg/dl (7-18); BUN/CREATININE RATIO 20.3 (10-20); CALCIUM 9.4 mg/dl (8.5-10.1); CARBON DIOXIDE 33 mmol/L (21-32); CHLORIDE 102 mmol/L (98-107); CREATININE 0.81 mg/dl (0.60-1.20); GLUCOSE 98 mg/dl (70-99); POTASSIUM 4.1 mmol/L (3.5-5.1); SODIUM 141 mmol/L (136-145)
[2016-07-30 13:45] LABS: MANUAL MICROSCOPIC REQUIRED? NO; REVIEW REQ? YES
== END | disposition home or self-care (01) ==
LOC: C.LABBC 10:13
PROVIDERS: ATTEND Internal Medicine Geriatric Medicine
DX: N39.0 Urinary tract infection, site not specified (principal); E87.6 Hypokalemia

== ENCOUNTER 2016-08-05 15:51 | Inpatient (IN) | payer BC, OTHER ==
[~2016-08-05] VITALS: Ht 119.4 cm; Wt 87.0 kg
[~2016-08-05 15:51] MED LIST changes: -ABL10 PO; -ADVIN50/60 INH; -ALBU18002 INH; -ARIP1TAB PO; -ARIP30TA3 PO; -BENZ100C7 PO; -BENZ100C84 PO; -BND25 PO; -BUSP5TAB59 PO; -CGN1X PO; -CHOL200010 PO; -CLC/300 PO; -CLON0.5T3 PO; -CPR500 PO; -DFL100 PO; -DOCU100C31 PO; -DOXY100C2 PO; -ERTA1INJ IV; -FERR325T PO; -FLUC100T4 PO; -GABA1CAP4 PO; -GUAI1TAB68 PO; -HYDR-3124 PO; -HYOS1TAB PO; -INDO-22 PO; -INDO1CAP34 PO; -LEVO25TA5 PO; -LEVO50TA6 PO; -LINA1CAP2 PO; -LITH600C PO; -LTHSR450 PO; -MCRB100 PO; -MCRK20 PO; -MECL1TAB42 PO; -MGNO400 PO; -MGRSP NAE; -MICO1POW8 TOP; -MISCCAP80 PO; -MTRG45 TOP; -MULTTAB58 PO; -NITR-5 PO; -NORE-38 PO; -NORE-39 PO; -NORT75CA PO; -NRT/25 PO; -NYST100010 TOP; -NYSTCRE11; -ONDA4TAB10 SL; -POTA10CA28 PO; -PROB1TAB16 PO; -PRT/40 PO; -RISP1TAB3 PO; -RISP1TAB68 PO; -RIVA1.5T PO; -RSP1 PO; -SNG10 PO; -TOPI1CAP3 PO; -TOPI25TA99 PO; -TOPI50TA16 PO; -TPM25 PO; -ULT50 PO; -VTMB12 PO; -WOUN1PAD EXT; -XPNINS NEB; -XRL10 PO; -XRL15 PO; -XRL20 PO; -ZNT/150 PO; -[UNRECOGNIZED DRUG - CODE] IART; -[UNRECOGNIZED DRUG - CODE] IV; -[UNRECOGNIZED DRUG - CODE] IV; -[UNRECOGNIZED DRUG - CODE] IV; -[UNRECOGNIZED DRUG - CODE] PO
[2016-08-05] MEDS ORDERED: SODIUM CHLORIDE 0.9% 500ML 500 ML IV STA (16:21)
[2016-08-05] MEDS ORDERED: MoRPHine SULFATE 4 MG/ML 1 ML CARP\\VIAL IV STA ×2 (16:26→18:19)
[2016-08-05] MEDS ORDERED: ONDANSETRON INJ 2 MG/ML 2 ML VIAL IV STA (16:26)
--- NOTE | 2016-08-05 16:30 | EMERGENCY ROOM VISIT NOTE ---
History Report prepared by James: Dariana Albert Under the Supervision of: Dr. Caity Moreno D.O. First contact with patient: 16:16 Chief Complaint: HEADACHE Stated Complaint: SHUNT HEADACHE History of Present Illness The patient is a 31 year old female who presents to the Emergency Room with complaints of a persistent, worsening headache that began today. She currently rates her discomfort as a 10/10 in severity. The patient states that she started with what seemed to be a Migraine-headache today and states that she took Tramadol around 1330 which helped her pain. She states that her headache has worsened and states that it now feels that something feels abnormal with her shunt. The patient states that her last shunt revision was done in March at [place], and states that she has had over 5 revisions. She additionally associates nausea with her symptoms today. The patient's mother states that the patient has had several UTIs recently and states that the patient is on Diflucan daily. Source of History: patient Onset: today Position: head Symptom Intensity: 10/10 Timing: worsening, other (persistent) Associated Symptoms: + nausea Review of Systems See HPI for pertinent positives & negatives. A total of 10 systems reviewed and were otherwise negative. Past Medical & Surgical Medical Problems: (1) Allergic reaction caused by a drug (2) Anxiety (3) Bipolar 1 disorder (4) Depression (5) Gastroparesis (6) GERD (gastroesophageal reflux disease) (7) Hydrocephalus (8) Intractable headache (9) Migraines (10) MRSA (methicillin resistant Staphylococcus aureus) (11) Osteomyelitis (12) Shunt placement with revision x8 (13) Spina bifida (14) UTI (urinary tract infection) Surgical Problems: (1) S/P BKA (below knee amputation) bilateral Family History Cancer Diabetes mellitus Lung disease Social History Smoking Status: Never Smoker Alcohol Use: none Drug Use: none Marital Status: single Housing Status: lives with family Occupation Status: disabled Current/Historical Medications Scheduled Aripiprazole (Abilify), 20 MG PO DAILY Cholecalciferol (Vitamin D), 2,000 INTER.UNIT PO LUNCH Clonazepam (Klonopin), 0.5 MG PO BID Cyanocobalamin (Vitamin B-12), 1 TAB PO LUNCH Docusate Sodium (Dulcolax Stool Softener), 100 MG PO BID Ferrous Sulfate (Kp Ferrous Sulfate), 1 TAB PO BIDM Fluconazole (Diflucan), 100 MG PO DAILY Fluticasone Prop/Salmeterol (Advair Diskus 500/50 60 Dose), 1 PUFF INH BID Gabapentin (Gabapentin), 300 MG PO TID Hydroxyzine Hcl (Atarax), 25 MG PO QD@1200 Hyoscyamine Sulfate (Levsin), 0.125 MG PO QID Levothyroxine Sodium (Bulk) (Levothyroxine Sodium), 25 MCG PO QAM Linaclotide (Linzess), 290 MCG PO QAM Mendes Carbonate (Mendes Carbonate), 600 MG PO HS Mendes Carbonate Ext Rel (Lithobid Ext Rel), 450 MG PO QAM Multiple Vitamin (Multivitamin), 1 TAB PO DAILY Nortriptyline Hcl (Pamelor), 100 MG PO HS Pantoprazole (Pantoprazole Sodium), 40 MG PO QAM Polyethylene (Miralax), 17 GM PO BID Ranitidine (Zantac), 150 MG PO HS Sennosides (Senna Lax), 8.6 MG PO DAILY Wound Dressings (Hydrofera Blue Foam Dress), 1 APPLN TOP DAILY Scheduled PRN Acetaminophen (Acetaminophen Extra Stren), 500-1,000 MG PO Q6H PRN for Pain Albuterol Hfa (Ventolin Hfa), 2 PUFFS INH Q4 PRN for Shortness of Breath Eletriptan Hydrobromide (Relpax), 20 MG PO UD PRN for Migraine Hydrocodone/Acetaminophen 5MG/325MG (Brooker 5MG/325MG), 1 TABLET PO Q4 PRN for Pain Hydroxyzine HCl (Hydroxyzine Pamoate), 25 MG PO Q8 PRN for Anxiety Ketorolac Tromethamine (Ketorolac Tromethamine), 10-20 MG PO UD PRN for Headache Magnesium Citrate (Magnesium Citrate), 296 ML PO DAILY PRN for Constipation Magnesium Hydroxide (Milk of Magnesia), 30 ML PO Q6H PRN for Constipation Meclizine HCl (Meclizine HCl), 25 MG PO Q8 PRN for Dizziness or Vertigo Miconazole Nitrate (Desenex Shake Powder), 1 APPLN EXT UD PRN for Affected Skin Folds Nystatin (Topical) (Nystatin), 1 APPLN TOP UD PRN for Yeast Outbreaks Ondansetron (Ondansetron HCl), 4 MG PO DAILY PRN for Nausea Tramadol (Ultram), 50 MG PO Q4H PRN for Pain Allergies Coded Allergies: Adhesives (Verified Allergy, Intermediate, TAPE- HIVES, 08/05/16) Ceftriaxone (Verified Allergy, Intermediate, rash, 08/05/16) Chlorhexidine (Verified Allergy, Intermediate, RASH, 08/05/16) Ciprofloxacin (Unverified Allergy, Intermediate, hives, 08/05/16) Latex (Verified Allergy, Intermediate, hives, 08/05/16) Levofloxacin (Verified Allergy, Intermediate, rash, 08/05/16) Linezolid (Verified Allergy, Intermediate, rash, 08/05/16) Piperacillin (Verified Allergy, Intermediate, SEVERE RASH, HIVES, 08/05/16) Tazobactam (Verified Allergy, Intermediate, SEVERE RASH, HIVES, 08/05/16) Vancomycin (Verified Allergy, Intermediate, rash, 08/05/16) Tobramycin (Verified Allergy, Mild, MILD RASH ON ARM, RED FACE, 08/05/16) IMPROVED AFTER BENADRYL, TAKING REST OF DOSE Amikacin (Verified Allergy, Unknown, PER DR ROBINS,RXN WAS TO ZOSYN NOT AMKrash;hives, 08/05/16) Sulfamethoxazole w/Trimethoprim (Unverified Allergy, Unknown, Hives, ) Can be pretreated with 10mg Zytrec 45 min prior to admin Physical Exam Vital Signs Date Time Temp Pulse Resp B/P Pulse Ox O2 Delivery O2 Flow Rate FiO2 08/05/16 22:10 101 22 113/89 96 Room Air 08/05/16 20:40 104 22 107/75 100 Room Air 08/05/16 19:43 85 20 120/70 95 08/05/16 19:05 95 20 121/70 95 08/05/16 15:55 36.4 115 20 116/72 96 Room Air Physical Exam General: Patient appears pale. HEENT: Head - normocephalic and atraumatic. Pupils are equal, round, and reactive to light. Extraocular eye muscles are intact and sclera are anicteric. Ears - bilaterally patent canals with noninjected tympanic membranes and no evidence of hemotympanum. Nose - moist nasal mucosa without discharge. Mouth - moist buccal mucosa. Oropharynx is nonerythematous and there is no tonsillar exudate or edema noted. Neck: Supple; no JVD, nuchal rigidity, cervical lymphadenopathy. Heart: Tachycardic rate and regular rhythm. There is a normal S1 and S2 with no murmurs, clicks, or gallops appreciated. Lungs: Clear to auscultation bilaterally with no wheezes, rales, or rhonchi. Abdomen: Soft, completely nontender, nondistended, with good bowel sounds. There are no palpable pulsatile masses or hepatosplenomegaly. There is no guarding, rigidity, or rebound noted. Extremities: Bilateral BKA. No evidence of cyanosis, clubbing, or edema. There are easily palpable peripheral pulses. Neuro:The patient is awake and alert, oriented to day, time, and place. Muscle strength is 5/5 in upper extremities. 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 Patient flexes at both hips. There are no cerebellar signs. Medical Decision & Procedures ER Provider Diagnostic Interpretation: CT results as stated below per my review and radiologist interpretation: HEAD CT NONCONTRAST CT DOSE: 1473.09 mGy.cm HISTORY: Mental status change eval for shunt failure TECHNIQUE: Multiaxial CT images of the head were performed without the use of intravenous contrast. Comparison: 05/09/2016 Findings: The paranasal sinuses and mastoid air cells are clear. Shunt placement remains unaltered. No evidence for hydrocephalus. Congenital anomalies should been previous described are stable. Shunt catheter appears to be intact. No evidence for parenchymal hemorrhage or midline shift. Impression: Acceptable shunt catheter position with no evidence for hydrocephalus. No change from the prior study. Electronically signed by: Werner Mcmahon M.D. 08/05/2016 5:49 PM Dictated Date/Time: 08/05/2016 5:47 PM Laboratory Results 08/05/16 18:15 Red Blood Count 4.25, Mean Corpuscular Volume 95.5, Mean Corpuscular Hemoglobin 30.6, Mean Corpuscular Hemoglobin Concent 32.0, Mean Platelet Volume 10.4, Neutrophils (%) (Auto) 73.5, Lymphocytes (%) (Auto) 18.0, Monocytes (%) (Auto) 5.6, Eosinophils (%) (Auto) 2.4, Basophils (%) (Auto) 0.2, Neutrophils # (Auto) 10.42, Lymphocytes # (Auto) 2.55, Monocytes # (Auto) 0.80, Eosinophils # (Auto) 0.34, Basophils # (Auto) 0.03 08/05/16 18:15 Test 08/05/16 18:15 White Blood Count 14.18 K/uL (4.8-10.8) Red Blood Count 4.25 M/uL (4.2-5.4) Hemoglobin 13.0 g/dL (12.0-16.0) Hematocrit 40.6 % (37-47) Mean Corpuscular Volume 95.5 fL (80-100) Mean Corpuscular Hemoglobin 30.6 pg (25-34) Mean Corpuscular Hemoglobin Concent 32.0 g/dl (32-36) Platelet Count 220 K/uL (130-400) Mean Platelet Volume 10.4 fL (7.4-10.4) Neutrophils (%) (Auto) 73.5 % Lymphocytes (%) (Auto) 18.0 % Monocytes (%) (Auto) 5.6 % Eosinophils (%) (Auto) 2.4 % Basophils (%) (Auto) 0.2 % Neutrophils # (Auto) 10.42 K/uL (1.4-6.5) Lymphocytes # (Auto) 2.55 K/uL (1.2-3.4) Monocytes # (Auto) 0.80 K/uL (0.11-0.59) Eosinophils # (Auto) 0.34 K/uL (0-0.5) Basophils # (Auto) 0.03 K/uL (0-0.2) RDW Standard Deviation 54.0 fL (36.4-46.3) RDW Coefficient of Variation 15.5 % (11.5-14.5) Immature Granulocyte % (Auto) 0.3 % Immature Granulocyte # (Auto) 0.04 K/uL (0.00-0.02) Anion Gap 6.0 mmol/L (3-11) Est Creatinine Clear Calc Drug Dose 69.7 ml/min Estimated GFR () 110.4 Estimated GFR (Non- 95.3 BUN/Creatinine Ratio 12.1 (10-20) Calcium Level 8.3 mg/dl (8.5-10.1) Laboratory results per my review. Medications Administered Medications (Trade) Dose Ordered Sig/Brenna Route Start Time Stop Time Status Last Admin Dose Admin Sodium Chloride (Nss 500ml) 500 ml @ 999 mls/hr Q31M STAT IV 08/05/16 16:21 08/05/16 16:51 DC 08/05/16 17:07 999 MLS/HR Ondansetron HCl (Zofran Inj) 4 mg NOW STAT IV 08/05/16 16:26 08/05/16 16:27 DC 08/05/16 17:07 4 MG Morphine Sulfate (MoRPHine SULFATE INJ) 4 mg NOW STAT IV 08/05/16 16:26 08/05/16 16:27 DC 08/05/16 17:08 4 MG Morphine Sulfate (MoRPHine SULFATE INJ) 4 mg NOW STAT IV 08/05/16 18:19 08/05/16 18:20 DC 08/05/16 18:38 4 MG Diphenhydramine HCl (Benadryl Inj) 25 mg NOW STAT IV 08/05/16 19:10 08/05/16 19:11 DC 08/05/16 19:21 25 MG Ketorolac Tromethamine (Toradol Inj) 30 mg NOW STAT IV 08/05/16 19:10 08/05/16 19:11 DC 08/05/16 19:22 30 MG Hydromorphone HCl 2 mg 2 mg NOW STAT IV 08/05/16 19:39 08/05/16 19:41 DC 08/05/16 19:54 2 MG Methylprednisolone Sodium Succinate/ Dextrose (Solu-Medrol IV/ D5 250ml) 258 ml @ 258 mls/hr TODAY@2100 IV 08/05/16 21:00 08/05/16 23:59 08/05/16 21:14 258 MLS/HR Procedure The patient was treated with Sodium Chloride 500 ml @ 999 mls/hr IV, Morphine Sulfate 4 mg IV, Zofran Inj 4 mg IV, Morphine Sulfate 4 mg IV, Toradol Inj 30 mg IV, Benadryl Inj 25 mg IV, Dilaudid Inj 2 mg IV, Methylprednisolone Sodium Succinate 500 mg/Dextrose 258 ml @ 258 mls/hr IV. ED Course 1619: Past medical records reviewed. The patient was evaluated in room B11B. A complete history and physical exam was performed. Her port was accessed. Laboratory studies were drawn as above. 1621: Ordered Sodium Chloride 500 ml @ 999 mls/hr IV. 1626: Ordered Morphine Sulfate 4 mg IV, Zofran Inj 4 mg IV. The patient went for CT scan of the brain to evaluate her shunt. 1818: I reevaluated the patient and her nausea is better, but her head pain continues. She just had her labs drawn. Ordered Morphine Sulfate 4 mg IV. 1852: The patient is not feeling better. She is going to get more medications. 0: Ordered Toradol Inj 30 mg IV, Benadryl Inj 25 mg IV. 1937: I reevaluated the patient and she still had no relief. She states that sometimes I have to stay due to her persistent headaches, but sometimes she goes home with her headache. 1938: Ordered Dilaudid Inj 2 mg IV. 2016: I reevaluated the patient and she feels no better. The patient wishes to stay for further treatment and evaluation, but the patients mother wants to take her home. We are going to consult her neurologist. 2044: I discussed the patients case with Dr. Chirinos, Neurology. She states that the patient should try 500 mg of IV site Medrol and if that does not help, the patient should be evaluated for intractable pain. If the patient were to be admitted, she recommended Depakote-500 mg IV twice a day; Solu Medrol-500 mg IV twice a day; Phenergan-25 mg 3 times a day 2048: I reevaluated the patient and she states that she is willing to try the steroids. 2099: Ordered Methylprednisolone Sodium Succinate 500 mg/Dextrose 258 ml @ 258 mls/hr IV. 2149: I reevaluated the patient and she is no better. I discussed the treatment plan with her. She will be evaluated for further treatment. []: I discussed the patient's case with Dr. Brewer, [facility] [place] He is going to evaluate the patient for further treatment. Medical Decision The patient is a 31 year old female who presents to the ED with a headache. Differential diagnosis includes shunt failure, migraine, tension headache, sepsis. Lab interpretation: white count 14.1, stable H&H, normal renal function and glucose. This is a 31-year-old female patient with a history of hydrocephalus he has a RESIDENTIAL PLUMBER shunt in place. The shunt appears to be functioning normally on CT scan as there is no evidence of hydrocephalus. The patient has had multiple doses of IV analgesia without any relief of her symptoms. She is still rating her pain as a 10/10 although she was eating a family and drinking without any difficulty. She had no vomiting while here in the ER. I did discuss the case with her neurologist. She recommended IV Solu-Medrol. There is no improvement with this measure, she recommended admission to the hospital on a regimen of medications as described above. I reviewed this plan with the patient and her mother. The patient got no relief from the IV Solu Medrol and will be evaluated by the [facility] Hospitalist. Consults Time Called: 2018 Consulting Physician: Dr. Chirinos, Neurology Returned Call: [phone] I discussed the patients case with Dr. Chirinos, Neurology. She states that the patient should try some IV steroids and if that does not help, the patient should be evaluated for intractable pain. Additional Consults: Time Called: 2150 Consulted Physician: RADHA Cervantes Returned Call: [phone] Additional Comments: I discussed the patient's case with RADHA Cervantes. He is going to evaluate the patient for further treatment. Impression Primary Impression: Intractable pain Additional Impression: Headache Scribe Attestation The scribe's documentation has been prepared under my direction and personally reviewed by me in its entirety. I confirm that the note above accurately reflects all work, treatment, procedures, and medical decision making performed by me. Departure Information Dispostion Being Evaluated By Hospitalist Referrals Darvin Lea D.O.Int.Med. (PCP) Problem Qualifiers
--- NOTE | 2016-08-05 17:51 | DIAGNOSTIC IMAGING REPORT ---
HEAD CT NONCONTRAST CT DOSE: 1473.09 mGy.cm HISTORY: Mental status change eval for shunt failure TECHNIQUE: Multiaxial CT images of the head were performed without the use of intravenous contrast. Comparison: 05/09/2016 Findings: The paranasal sinuses and mastoid air cells are clear. Shunt placement remains unaltered. No evidence for hydrocephalus. Congenital anomalies should been previous described are stable. Shunt catheter appears to be intact. No evidence for parenchymal hemorrhage or midline shift. Impression: Acceptable shunt catheter position with no evidence for hydrocephalus. No change from the prior study. Electronically signed by: Werner Mcmahon M.D. 08/05/2016 5:49 PM Dictated Date/Time: 08/05/2016 5:47 PM
[2016-08-05 18:23] LABS: BASO % 0.2 %; BASO ABS # 0.03 K/uL (0-0.2); COMPLETE YES; EOS % 2.4 %; HEMATOCRIT 40.6 % (37-47); IG% 0.3 %; LYMPH ABS # 2.55 K/uL (1.2-3.4); MEAN CELL VOLUME 95.5 fL (80-100); MEAN CORPUSCULAR HEMOGLOBIN 30.6 pg (25-34); MEAN PLATELET VOLUME 10.4 fL (7.4-10.4); MONO % 5.6 %; NEUT % 73.5 %; PLATELET COUNT 220 K/uL (130-400); RED BLOOD COUNT 4.25 M/uL (4.2-5.4); WHITE BLOOD COUNT 14.18 K/uL (4.8-10.8)
[2016-08-05 18:41] LABS: BUN/CREATININE RATIO 12.1 (10-20); CALCIUM 8.3 mg/dl (8.5-10.1); CREATININE 0.83 mg/dl (0.60-1.20); POTASSIUM 3.9 mmol/L (3.5-5.1)
[2016-08-05] MEDS ORDERED: FLUC100T4 PO (18:56)
[2016-08-05] MEDS ORDERED: DiphenhydrAMINE HCL 50 MG/ML VIAL IV STA (19:10)
[2016-08-05] MEDS ORDERED: KETOROLAC TROMETHAMINE 30 MG/ML VIAL IV STA (19:10)
[2016-08-05] MEDS ORDERED: HYDROmorphone INJ 2 MG/ML SYR/VIAL IV STA (19:39)
[2016-08-05] MEDS ORDERED: METHYLPREDNISOLONE 1000 MG/16 ML IV STA (20:50)
[2016-08-05] MEDS ORDERED: METHYLPREDNISOLONE IV 500 MG in DEXTROSE 5% 250ML 250 ML IV SCH (21:00)
[2016-08-05] MEDS ORDERED: hydrOXYzine HCL 25 MG TAB PO PRN (22:30)
[2016-08-05] MEDS ORDERED: HYDROmorphone INJ 0.5 MG/0.5 ML SYR IV PRN (22:30)
[2016-08-05] MEDS ORDERED: MECLIZINE HCL 25 MG TAB PO PRN (22:30)
[2016-08-05] MEDS ORDERED: ONDANSETRON INJ 2 MG/ML 2 ML VIAL IV PRN (22:45)
[2016-08-05] MEDS ORDERED: POLYETHYLENE (MIRALAX) 17 GM PACK PO PRN (22:45)
[2016-08-05] MEDS ORDERED: MAGNESIUM HYDROXIDE SUSP 30 ML UDC PO PRN (22:45)
[2016-08-05] MEDS ORDERED: ACETAMINOPHEN 325 MG TAB PO PRN (22:45)
[2016-08-05] MEDS ORDERED: ALUMINUM/MAGNESIUM/SIMETH (MAALOX MAX) 30 ML UDC PO PRN (22:45)
--- NOTE | 2016-08-05 23:18 | History and Physical ---
History & Physical Date & Time of Service: Aug 05, 2016 at 22:55 Chief Complaint: Shunt Headache Primary Care Physician: Darvin Lea D.O.Int.Med. 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 Pt presented with a severe generalized intractable FRIED which did not respond to her home medications. She was treated with multiple modalities in the ER and had only marginal relief. The neurology service was contacted and advised treatment with Keppra and IV steroids. She is admitted therefore with intractable migraine. A CT of the brain was was obtained which did not show any acute change in her shunt. She has not had fevers, visual disturbances, nausea or vomiting. Pt has a history of depression and bipolar disorder - she was recently admitted to psychiatry for suicidal ideation. Past Medical/Surgical History Medical Problems: (1) Anxiety Status: Chronic (2) Bipolar 1 disorder Status: Chronic (3) Depression Status: Chronic (4) Gastroparesis Status: Chronic (5) GERD (gastroesophageal reflux disease) Status: Chronic (6) Hydrocephalus Status: Chronic (7) MRSA (methicillin resistant Staphylococcus aureus) Status: Resolved (8) Osteomyelitis Status: Resolved (9) Spina bifida Permanent Comment: Status: Chronic 10) Suprapubic catheter - recurrent UTIs 11) Chronic interstitial cystitis Family History Cancer Diabetes mellitus Lung disease Social History Smoking Status: Never Smoker Drug Use: none Marital Status: single Housing status: lives with family Occupational Status: disabled 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 Allergies Coded Allergies: Adhesives (Verified Allergy, Intermediate, TAPE- HIVES, 08/05/16) Ceftriaxone (Verified Allergy, Intermediate, rash, 08/05/16) Chlorhexidine (Verified Allergy, Intermediate, RASH, 08/05/16) Ciprofloxacin (Unverified Allergy, Intermediate, hives, 08/05/16) Latex (Verified Allergy, Intermediate, hives, 08/05/16) Levofloxacin (Verified Allergy, Intermediate, rash, 08/05/16) Linezolid (Verified Allergy, Intermediate, rash, 08/05/16) Piperacillin (Verified Allergy, Intermediate, SEVERE RASH, HIVES, 08/05/16) Tazobactam (Verified Allergy, Intermediate, SEVERE RASH, HIVES, 08/05/16) Vancomycin (Verified Allergy, Intermediate, rash, 08/05/16) Tobramycin (Verified Allergy, Mild, MILD RASH ON ARM, RED FACE, 08/05/16) IMPROVED AFTER BENADRYL, TAKING REST OF DOSE Amikacin (Verified Allergy, Unknown, PER DR ROBINS,RXN WAS TO ZOSYN NOT AMKrash;hives, 08/05/16) Sulfamethoxazole w/Trimethoprim (Unverified Allergy, Unknown, Hives, ) Can be pretreated with 10mg Zytrec 45 min prior to admin Home Medications Scheduled Aripiprazole (Abilify), 20 MG PO DAILY Cholecalciferol (Vitamin D), 2,000 INTER.UNIT PO LUNCH Clonazepam (Klonopin), 0.5 MG PO BID Cyanocobalamin (Vitamin B-12), 1 TAB PO LUNCH Docusate Sodium (Dulcolax Stool Softener), 100 MG PO BID Ferrous Sulfate (Kp Ferrous Sulfate), 1 TAB PO BIDM Fluconazole (Diflucan), 100 MG PO DAILY Fluticasone Prop/Salmeterol (Advair Diskus 500/50 60 Dose), 1 PUFF INH BID Gabapentin (Gabapentin), 300 MG PO TID Hydroxyzine Hcl (Atarax), 25 MG PO QD@1200 Hyoscyamine Sulfate (Levsin), 0.125 MG PO QID Levothyroxine Sodium (Bulk) (Levothyroxine Sodium), 25 MCG PO QAM Linaclotide (Linzess), 290 MCG PO QAM Orinda Carbonate (Orinda Carbonate), 600 MG PO HS Orinda Carbonate Ext Rel (Lithobid Ext Rel), 450 MG PO QAM Multiple Vitamin (Multivitamin), 1 TAB PO DAILY Nortriptyline Hcl (Pamelor), 100 MG PO HS Pantoprazole (Pantoprazole Sodium), 40 MG PO QAM Polyethylene (Miralax), 17 GM PO BID Ranitidine (Zantac), 150 MG PO HS Sennosides (Senna Lax), 8.6 MG PO DAILY Wound Dressings (Hydrofera Blue Foam Dress), 1 APPLN TOP DAILY Scheduled PRN Acetaminophen (Acetaminophen Extra Stren), 500-1,000 MG PO Q6H PRN for Pain Albuterol Hfa (Ventolin Hfa), 2 PUFFS INH Q4 PRN for Shortness of Breath Eletriptan Hydrobromide (Relpax), 20 MG PO UD PRN for Migraine Hydrocodone/Acetaminophen 5MG/325MG (Calpine 5MG/325MG), 1 TABLET PO Q4 PRN for Pain Hydroxyzine HCl (Hydroxyzine Pamoate), 25 MG PO Q8 PRN for Anxiety Ketorolac Tromethamine (Ketorolac Tromethamine), 10-20 MG PO UD PRN for Headache Magnesium Citrate (Magnesium Citrate), 296 ML PO DAILY PRN for Constipation Magnesium Hydroxide (Milk of Magnesia), 30 ML PO Q6H PRN for Constipation Meclizine HCl (Meclizine HCl), 25 MG PO Q8 PRN for Dizziness or Vertigo Miconazole Nitrate (Desenex Shake Powder), 1 APPLN EXT UD PRN for Affected Skin Folds Nystatin (Topical) (Nystatin), 1 APPLN TOP UD PRN for Yeast Outbreaks Ondansetron (Ondansetron HCl), 4 MG PO DAILY PRN for Nausea Tramadol (Ultram), 50 MG PO Q4H PRN for Pain Review of Systems Constitutional: No chills, No fever, No sweats Eyes: No eye pain, No worsening of vision ENT: No hearing loss, No nasal symptoms, No unusual epistaxis Respiratory: No cough, No sputum, No wheezing Cardiovascular: No PND, No chest pain, No orthopnea Abdomen: No nausea, No pain, No vomiting Musculoskeletal: No joint pain, No muscle pain Genitourinary - Female: + problem reported (chronic cystitis - bladder pain) Neurologic: No memory loss, No paralysis, No weakness Psychiatric: No depression symptoms Endocrine: No fatigue Hematologic / Lymphatic: No abnormal bleeding/bruising Integumentary: No rash Allergic / Immunologic: No environmental allergies Physical Exam Vital Signs Date Time Temp Pulse Resp B/P Pulse Ox O2 Delivery O2 Flow Rate FiO2 08/05/16 22:10 101 22 113/89 96 Room Air 08/05/16 20:40 104 22 107/75 100 Room Air 08/05/16 19:43 85 20 120/70 95 08/05/16 19:05 95 20 121/70 95 08/05/16 15:55 36.4 115 20 116/72 96 Room Air General Appearance: WD/WN, no apparent distress, + pertinent finding (Pleasant overweight young female) Head: normocephalic, atraumatic Eyes: normal inspection, PERRL, EOMI ENT: normal ENT inspection, hearing grossly normal, TMs normal, pharynx normal Neck: supple, no adenopathy, thyroid normal, no JVD Respiratory/Chest: chest non-tender, lungs clear, normal breath sounds, no respiratory distress, no accessory muscle use Cardiovascular: regular rate, rhythm, no edema, no gallop, no JVD, no murmur, normal peripheral pulses Abdomen/GI: normal bowel sounds, non tender, soft Back: normal inspection, no CVA tenderness Extremities/Musculoskelatal: + pertinent finding (Small ulcer at post surface of RLE - appears to be healing) Neurologic/Psych: 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, no motor/sensory deficits, alert, normal mood/affect, oriented x 3 Skin: normal color, warm/dry, no rash Diagnostics Laboratory Results Results Past 24 Hours Test 08/05/16 18:15 08/05/16 22:46 Range/Units White Blood Count 14.18 4.8-10.8 K/uL Red Blood Count 4.25 4.2-5.4 M/uL Hemoglobin 13.0 12.0-16.0 g/dL Hematocrit 40.6 37-47 % Mean Corpuscular Volume 95.5 80-100 fL Mean Corpuscular Hemoglobin 30.6 25-34 pg Mean Corpuscular Hemoglobin Concent 32.0 32-36 g/dl Platelet Count 220 130-400 K/uL Mean Platelet Volume 10.4 7.4-10.4 fL Neutrophils (%) (Auto) 73.5 % Lymphocytes (%) (Auto) 18.0 % Monocytes (%) (Auto) 5.6 % Eosinophils (%) (Auto) 2.4 % Basophils (%) (Auto) 0.2 % Neutrophils # (Auto) 10.42 1.4-6.5 K/uL Lymphocytes # (Auto) 2.55 1.2-3.4 K/uL Monocytes # (Auto) 0.80 0.11-0.59 K/uL Eosinophils # (Auto) 0.34 0-0.5 K/uL Basophils # (Auto) 0.03 0-0.2 K/uL RDW Standard Deviation 54.0 36.4-46.3 fL RDW Coefficient of Variation 15.5 11.5-14.5 % Immature Granulocyte % (Auto) 0.3 % Immature Granulocyte # (Auto) 0.04 0.00-0.02 K/uL Sodium Level 142 136-145 mmol/L Potassium Level 3.9 3.5-5.1 mmol/L Chloride Level 107 98-107 mmol/L Carbon Dioxide Level 29 21-32 mmol/L Anion Gap 6.0 3-11 mmol/L Blood Urea Nitrogen 10 7-18 mg/dl Creatinine 0.83 0.60-1.20 mg/dl Est Creatinine Clear Calc Drug Dose 69.7 ml/min Estimated GFR () 110.4 Estimated GFR (Non- 95.3 BUN/Creatinine Ratio 12.1 10-20 Random Glucose 84 70-99 mg/dl Calcium Level 8.3 8.5-10.1 mg/dl Diagnostic Radiology Acceptable shunt catheter position with no evidence for hydrocephalus. No change from the prior study. Impression Assessment and Plan 31 y/o F w/Hx Spina bifida, [employer] shunt at - 12 revisions, osteomyelitis leading to B/L LE BKA, recent bacterial and candidal UTI, chronic migraines. Pt presented with a severe intractable FRIED which did not respond to her home medications. She was treated with multiple modalities in the ER and had only marginal relief. The neurology service was contacted and advised treatment with Keppra and IV steroids. She is admitted therefore with intractable migraine. A CT of the brain was was obtained which did not show any acute change in her shunt. She has not had fevers, visual disturbances, nausea or vomiting. 1) Intractable migraine - Pt will be treated with Analgesics as needed - Keppra and Methylprednisolone per neurology recommendation - IVF - neurology consult requested. 2) Melida UTI - cont Diflucan 3) Ulcer on LE - healing with current treatment per pts mother 4) Bipolar - recent admit with suicidal ideation - cont home meds - Clonazepam, Abilify Heparin prophylaxis - Full code Total time for this admit including review of extensive records, labs, meds, imaging - discussion with ER attending and pt/family - 41 min Level of Care Med/Surg Resuscitation Status FULL RESUSCITATION VTE Prophylaxis VTE Risk Assessment Done? Y/N: Yes Risk Level: Moderate Given or contraindicated: Unfractionated heparin SQ
[2016-08-05 23:58] LABS: INR 1.2 (0.9-1.1); PARTIAL THROMBOPLASTIN RATIO 1.1; PROTHROMBIN TIME (PATIENT) 12.5 SECONDS (9.0-12.0)
[2016-08-06] VITALS (8 sets, daily range): BP systolic 118–134; BP diastolic 64–86; PULSE 90–118; TEMP 36.3–36.8; O2SAT 92–95; Ht 119.4 cm; Wt 87.0 kg
[2016-08-06] MEDS ORDERED: D5NSS + 20MEQ KCL 1,000 ML IV SCH (00:30)
[2016-08-06] MEDS ORDERED: METHYLPREDNISOLONE IV 500 MG in DEXTROSE 5% 250ML 250 ML IV ONE (01:00)
[2016-08-06] MEDS: RANITIDINE HCL 150 MG TAB PO SCH ×2 (01:18→21:00)
[2016-08-06] MEDS: NORTRIPTYLINE HCL 25 MG CAP PO SCH ×2 (01:18→21:00)
[2016-08-06] MEDS: LITHIUM CARBONATE 300 MG TAB PO SCH ×2 (01:18→20:59)
[2016-08-06] MEDS: GABAPENTIN 300 MG CAP PO SCH ×4 (01:19→21:00)
[2016-08-06] MEDS: DOCUSATE SODIUM 100 MG CAP PO SCH ×3 (01:19→20:58)
[2016-08-06] MEDS: CLONAZEPAM 0.5 MG TAB PO SCH ×3 (01:42→20:58)
[2016-08-06] MEDS ORDERED: CLONAZEPAM 0.5 MG TAB PO ONE (01:45)
[2016-08-06] MEDS: ALBUTEROL HFA 8 GM INHALER INH PRN ×3 (03:58→19:03)
[2016-08-06] MEDS: LEVOTHYROXINE 25 MCG TAB PO SCH (05:37)
[2016-08-06] MEDS: LINACLOTIDE 290 MCG CAP PO SCH (05:38)
[2016-08-06] MEDS: HEPARIN SOD 5000 UNIT/0.5 ML CARP SQ SCH ×3 (05:38→21:55)
[2016-08-06] MEDS: FLUTICASONE/SALMETEROL (ADVAIR) 500/50 INH 14 PUFF INH SCH ×2 (08:45→20:58)
[2016-08-06] MEDS: ARIPIprazole TAB 10 MG TAB PO SCH (08:46)
[2016-08-06] MEDS: HYOSCYAMINE SULFATE 0.125 MG SL TAB PO SCH ×4 (08:46→20:59)
[2016-08-06] MEDS: SENNA 8.6 MG TAB PO SCH (08:46)
[2016-08-06] MEDS: PANTOprazole SOD 40 MG TAB PO SCH (08:47)
[2016-08-06] MEDS: LITHIUM CARBONATE 450 MG TABCR PO SCH (08:47)
[2016-08-06] MEDS: FLUCONAZOLE 100 MG TAB PO SCH (08:47)
[2016-08-06] MEDS: CYANOCOBALAMIN 500 MCG TAB (VIT B-12) PO SCH (08:47)
[2016-08-06] MEDS ORDERED: LINACLOTIDE 290 MCG CAP PO SCH (09:00)
[2016-08-06] MEDS ORDERED: LEVETIRACETAM 250 MG TAB PO SCH (09:00)
--- NOTE | 2016-08-06 09:50 | Progress Note ---
Subjective Date of Service: Aug 06, 2016. Subjective she reports double vision with her headaches, not uncommon for her during acute migraine flares. diffuse, severe headache, no photophobia. no vertigo but does report lightheadedness. Problem List Medical Problems: (1) Acute pyelonephritis Status: Acute (2) Allergic reaction Status: Acute (3) Allergic reaction Status: Acute (4) Complicated urinary tract infection Status: Acute (5) Gabapentin overdose Status: Acute (6) Headache Status: Acute (7) Intractable headache Status: Acute (8) Intractable pain Status: Acute (9) Low back pain Status: Acute (10) Lower abdominal pain Status: Acute (11) Lower abdominal pain Status: Acute (12) Nausea Status: Acute (13) Pelvic pain Status: Acute (14) Right flank pain Status: Acute (15) Right leg pain Status: Acute (16) Self-harming behavior Status: Acute (17) Shunt malfunction Status: Acute (18) Shunt malfunction Status: Acute (19) Suicidal ideation Status: Acute (20) Suicidal ideation Status: Acute (21) Suprapubic pain Status: Acute (22) Urinary tract infection Status: Acute (23) Urinary tract infection Status: Acute (24) UTI (urinary tract infection) Status: Acute (25) UTI (urinary tract infection) Status: Acute Review of Systems All Other Systems: Reviewed and Negative Objective Vital Signs Date Time Temp Pulse Resp B/P Pulse Ox O2 Delivery O2 Flow Rate FiO2 08/06/16 07:27 36.7 96 19 126/80 94 Room Air 08/06/16 00:18 36.3 97 18 125/86 92 Room Air 08/06/16 00:00 36.3 97 18 125/86 92 Room Air 08/06/16 00:00 Room Air 08/05/16 23:44 92 20 116/84 98 08/05/16 22:10 101 22 113/89 96 Room Air 08/05/16 20:40 104 22 107/75 100 Room Air 08/05/16 19:43 85 20 120/70 95 08/05/16 19:05 95 20 121/70 95 08/05/16 15:55 36.4 115 20 116/72 96 Room Air Physical Exam Comments: nad, aox3 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 did not adduct when tested for convergence, otherwise other EOMI, no nystagmus noted BLE BKA s1 s2 rrr, no murmurs appreciated but distant heart sounds d/t body habitus ctab no wheezing appreciated but difficult with body habitus as well abd soft, nt nd +BS Laboratory Results Last 24 Hours Test 08/05/16 18:15 White Blood Count 14.18 K/uL Red Blood Count 4.25 M/uL Hemoglobin 13.0 g/dL Hematocrit 40.6 % Mean Corpuscular Volume 95.5 fL Mean Corpuscular Hemoglobin 30.6 pg Mean Corpuscular Hemoglobin Concent 32.0 g/dl Platelet Count 220 K/uL Mean Platelet Volume 10.4 fL Neutrophils (%) (Auto) 73.5 % Lymphocytes (%) (Auto) 18.0 % Monocytes (%) (Auto) 5.6 % Eosinophils (%) (Auto) 2.4 % Basophils (%) (Auto) 0.2 % Neutrophils # (Auto) 10.42 K/uL Lymphocytes # (Auto) 2.55 K/uL Monocytes # (Auto) 0.80 K/uL Eosinophils # (Auto) 0.34 K/uL Basophils # (Auto) 0.03 K/uL RDW Standard Deviation 54.0 fL RDW Coefficient of Variation 15.5 % Immature Granulocyte % (Auto) 0.3 % Immature Granulocyte # (Auto) 0.04 K/uL Prothrombin Time 12.5 SECONDS Prothromb Time International Ratio 1.2 Activated Partial Thromboplast Time 28.0 SECONDS Partial Thromboplastin Ratio 1.1 Sodium Level 142 mmol/L Potassium Level 3.9 mmol/L Chloride Level 107 mmol/L Carbon Dioxide Level 29 mmol/L Anion Gap 6.0 mmol/L Blood Urea Nitrogen 10 mg/dl Creatinine 0.83 mg/dl Est Creatinine Clear Calc Drug Dose 69.7 ml/min Estimated GFR () 110.4 Estimated GFR (Non- 95.3 BUN/Creatinine Ratio 12.1 Random Glucose 84 mg/dl Calcium Level 8.3 mg/dl Assessment and Plan 1. Acute migraine - neurology consulted - on solu-medrol/phenergan/depakote - pain meds prn - CT head without acute pathology 2. Yeast in the urine, ?UTI - was started on macrobid outpatient and was to continue until Monday - on prophylactic fluconazole? daily 3. Constipation - will institute aggressive bowel regimen 4. Bipolar - recent admit with suicidal ideation - cont home meds - Clonazepam, Abilify dvt ppx
[2016-08-06] MEDS: PROMETHAZINE HCL INJ 25 MG in SODIUM CHLORIDE 0.9% 50ML 50 ML IV SCH ×2 (10:16→17:39)
[2016-08-06] MEDS: METHYLPREDNISOLONE IV 500 MG in DEXTROSE 5% 250ML 250 ML IV SCH ×2 (10:16→20:53)
--- NOTE | 2016-08-06 11:04 | Neurology Consultation ---
Neurology Consultation Date of Consultation: Aug 06, 2016. Attending Physician: Tej Brewer MD Primary Care Physician: Darvin Lea, D.O.Int.Med. Reason for Consultation: Consultation for headaches History of Present Illness Source: patient, clinic records, hospital records This is a 31-year-old female who is known to myself and followed in my neurology clinic. She has a significant history for chronic mixed migraine type headaches with a DIRECTOR OF [employer]CHIT[employer] shunt. Patient presented yesterday for sudden worsening of headaches. She reports that for the last couple week she's been having daily mild headaches for which she has not needed to take any medication for. She reports that yesterday she had sudden worsening of headaches. [place] that it was wakes failure of previous DIRECTOR OF ARCHIT[employer] shunt. Reports that if she lays down or has her head down for too long it makes the headache much worse. Reports the headache is all over and feels like her head is going to explode. She reports blurry and double vision since yesterday. She has to keep her self an upright position to feel more comfortable. She denies any sick symptoms or fevers. Morphine and ketorolac was tried in the emergency room without any relief. Patient's last shunt evaluation by neurosurgery at [facility] was May 2016 and was functioning properly at that time. At that time she was admitted for intractable headache and was given a course of IV DHE and what sounds like a cocktail of Depakote, steroids, and Phenergan without relief. CT of the head reported images were reviewed and unremarkable. That being said, the patient often has no major changes on imaging with past shunt failures. Patient has had episodes of both under shunting and over shunting contributing to headaches in the past. Headache history: History of frequent headaches with shunt failure. Patient does have a DIRECTOR OF ARCHIT[employer] shunt for hydrocephalus and congenital malformations with spina bifida. Patient has had 9-10 or more shunt revisions in the past. She describes them as an all over pain often times made worse with position changes. She describes quality as tight, throbbing, pressure, like her head is a good explode. She has light sensitivity. No sound sensitivity. She is very nauseous with her headaches. She does have Zofran prescription but has not been taking it because she was concerned about taking too much. She reports brief blurry vision when she sits up. She denies any neck pain in the past. She does have some back pain around her scar with no radiating pain. Activity makes her headaches worse. There is no caffeine overuse. Past therapeutic trials: Injections have worked in the past for occipital neuralgia [place] physical therapy which has helped. Patient continues to do exercises at home steroids including Medrol dosepak and IV Solu-Medrol Depakote Excedrin and NSAIDs, Percocet, Imitrex, Maxalt, Relpax, naratriptan, ketorolac, Fioricet, Migranal nasal spray without good result. Compazine helps with nausea but not headaches gabapentin with significant side effects of weight gain tramadol seems to help the best nortriptyline Patient reports being on Topamax for 1 week when she was a teenager. She doesn' t remember any side effects and is uncertain why it was discontinued. Recent IV DHE and IV Depakote/Solu-Medrol/Phenergan was not effective Past Medical/Surgical History Medical Problems: (1) Acute pyelonephritis Status: Acute (2) Allergic reaction Status: Acute (3) Allergic reaction Status: Acute (4) Complicated urinary tract infection Status: Acute (5) Gabapentin overdose Status: Acute (6) Headache Status: Acute (7) Intractable headache Status: Acute (8) Intractable pain Status: Acute (9) Low back pain Status: Acute (10) Lower abdominal pain Status: Acute (11) Lower abdominal pain Status: Acute (12) Nausea Status: Acute (13) Pelvic pain Status: Acute (14) Right flank pain Status: Acute (15) Right leg pain Status: Acute (16) Self-harming behavior Status: Acute (17) Shunt malfunction Status: Acute (18) Shunt malfunction Status: Acute (19) Suicidal ideation Status: Acute (20) Suicidal ideation Status: Acute (21) Suprapubic pain Status: Acute (22) Urinary tract infection Status: Acute (23) Urinary tract infection Status: Acute (24) UTI (urinary tract infection) Status: Acute (25) UTI (urinary tract infection) Status: Acute Hydrocephalus status post [employer]OR OF [employer] shunt any revisions Spina bifida 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 Normally independent in activities of daily living. She is in a wheelchair secondary to bilateral lower extremity amputation No smoking or alcohol use. No illegal drug use. Drug Use: none Marital Status: single Housing Status: lives with family Occupation Status: disabled Allergies Coded Allergies: Adhesives (Verified Allergy, Intermediate, TAPE- HIVES, 08/05/16) Ceftriaxone (Verified Allergy, Intermediate, rash, 08/05/16) Chlorhexidine (Verified Allergy, Intermediate, RASH, 08/05/16) Ciprofloxacin (Unverified Allergy, Intermediate, hives, 08/05/16) Latex (Verified Allergy, Intermediate, hives, 08/05/16) Levofloxacin (Verified Allergy, Intermediate, rash, 08/05/16) Linezolid (Verified Allergy, Intermediate, rash, 08/05/16) Piperacillin (Verified Allergy, Intermediate, SEVERE RASH, HIVES, 08/05/16) Tazobactam (Verified Allergy, Intermediate, SEVERE RASH, HIVES, 08/05/16) Vancomycin (Verified Allergy, Intermediate, rash, 08/05/16) Tobramycin (Verified Allergy, Mild, MILD RASH ON ARM, RED FACE, 08/05/16) IMPROVED AFTER BENADRYL, TAKING REST OF DOSE Amikacin (Verified Allergy, Unknown, PER DR ROBINS,RXN WAS TO ZOSYN NOT AMKrash;hives, 08/05/16) Sulfamethoxazole w/Trimethoprim (Unverified Allergy, Unknown, Hives, ) Can be pretreated with 10mg Zytrec 45 min prior to admin Current Inpatient Medications Current Inpatient Medications Medications (Trade) Dose Ordered Sig/[place] Route Start Time Stop Time Status Last Admin Dose Admin Albuterol (Ventolin Hfa Inhaler) 2 puffs Q4 PRN INH 08/05/16 22:30 09/04/16 22:29 08/06/16 03:58 2 PUFFS Aripiprazole (Abilify Tab) 20 mg DAILY PO 08/06/16 09:00 09/05/16 08:59 08/06/16 08:46 20 MG Clonazepam (Klonopin Tab) 0.5 mg BID PO 08/06/16 09:00 09/05/16 08:59 08/06/16 01:42 0.5 MG Cyanocobalamin (Vitamin B-12 Tab) 500 mcg DAILY PO 08/06/16 09:00 09/05/16 08:59 08/06/16 08:47 500 MCG Docusate Sodium (coLACE CAP) 100 mg BID PO 08/06/16 09:00 09/05/16 08:59 08/06/16 01:19 100 MG Fluconazole (Diflucan Tab) 100 mg DAILY PO 08/06/16 09:00 08/09/16 23:59 08/06/16 08:47 100 MG Salmeterol Xinafoate/ Fluticasone (Advair Diskus 500/50 Inh) 1 puff BID INH 08/06/16 09:00 09/05/16 08:59 08/06/16 08:45 1 PUFF Gabapentin (Neurontin Cap) 300 mg TID PO 08/06/16 09:00 09/05/16 08:59 08/06/16 08:46 300 MG Hydroxyzine HCl (Vistaril Tab) 25 mg QD@1200 PO 08/06/16 12:00 09/05/16 11:59 Hyoscyamine Sulfate (Levsin Tab) 0.125 mg QID PO 08/06/16 09:00 09/05/16 08:59 08/06/16 08:46 0.125 MG [place] Carbonate ([place] Carbonate Tab) 600 mg HS PO 08/06/16 21:00 09/05/16 20:59 08/06/16 01:18 600 MG [place] Carbonate (Eskalith Cr Tab) 450 mg QAM PO 08/06/16 09:00 09/05/16 08:59 08/06/16 08:47 450 MG Meclizine HCl (Antivert Tab) 25 mg Q8 PRN PO 08/05/16 22:30 09/04/16 22:29 Nortriptyline HCl (Pamelor Cap) 100 mg HS PO 08/06/16 21:00 09/05/16 20:59 08/06/16 01:18 100 MG Pantoprazole Sodium (Protonix Tab) 40 mg QAM PO 08/06/16 09:00 09/05/16 08:59 08/06/16 08:47 40 MG Ranitidine HCl (zANTac TAB) 150 mg HS PO 08/06/16 21:00 09/05/16 20:59 08/06/16 01:18 150 MG Senna (Senokot Tab) 8.6 mg DAILY PO 08/06/16 09:00 09/05/16 08:59 08/06/16 08:46 8.6 MG Hydroxyzine HCl (Vistaril Tab) 25 mg Q8 PRN PO 08/05/16 22:30 09/04/16 22:29 Levothyroxine Sodium (Synthroid Tab) 25 mcg DAILYBB PO 08/06/16 06:00 09/05/16 06:59 08/06/16 05:37 25 MCG Hydromorphone HCl (Dilaudid Inj) 0.5 mg Q3H PRN IV 08/05/16 22:30 08/19/16 22:29 Heparin Sodium (Porcine) (Heparin Sq 5000 Unit/0.5ml) 5,000 unit Q8H SQ 08/06/16 06:00 09/05/16 05:59 Acetaminophen (Tylenol Tab) 650 mg Q4H PRN PO 08/05/16 22:45 09/04/16 22:44 Al Hydrox/Mg Hydrox/Simethicone (Maalox Max Susp) 15 ml Q4H PRN PO 08/05/16 22:45 09/04/16 22:44 Magnesium Hydroxide (Milk Of Magnesia Susp) 30 ml Q6H PRN PO 08/05/16 22:45 09/04/16 22:44 Polyethylene (Miralax Powder Packet) 17 gm DAILY PRN PO 08/05/16 22:45 09/04/16 22:44 Ondansetron HCl (Zofran Inj) 4 mg Q6H PRN IV 08/05/16 22:45 09/04/16 22:44 Linaclotide 290 mcg 290 mcg DAILYBB PO 08/06/16 06:00 09/05/16 05:59 08/06/16 05:38 290 MCG Valproate Sodium 500 mg/Dextrose 55 ml @ 55 mls/hr Q12 IV 08/06/16 09:30 09/05/16 09:29 Methylprednisolone Sodium Succinate 500 mg/Dextrose 258 ml @ 250 mls/hr Q12 IV 08/06/16 09:30 08/09/16 04:44 Promethazine HCl/ Sodium Chloride (Phenergan Inj/ Nss 50ml) 51 ml @ 204 mls/hr Q8@0200,1000,1800 IV 08/06/16 09:30 09/05/16 09:29 Review of Systems Complete review of systems otherwise negative except for the above noted in history of present illness Physical Exam Vital Signs (Past 24 Hrs): Date Time Temp Pulse Resp B/P Pulse Ox O2 Delivery O2 Flow Rate FiO2 08/06/16 07:27 36.7 96 19 126/80 94 Room Air 08/06/16 00:18 36.3 97 18 125/86 92 Room Air 08/06/16 00:00 36.3 97 18 125/86 92 Room Air 08/06/16 00:00 Room Air 08/05/16 23:44 92 20 116/84 98 08/05/16 22:10 101 22 113/89 96 Room Air 08/05/16 20:40 104 22 107/75 100 Room Air 08/05/16 19:43 85 20 120/70 95 08/05/16 19:05 95 20 121/70 95 08/05/16 15:55 36.4 115 20 116/72 96 Room Air Gen.: Patient is alert and oriented line in bed in no acute distress HEENT: Normocephalic atraumatic no scleral icterus Heart: Regular rate and rhythm Extremities: No rashes noted. Bilateral amputation of lower extremities Neurological examination: Mental status: Patient is alert and oriented to person place and time. Able to give her own history in detail. Attention and concentration are normal for the situation Speech is fluent without any dysarthria or aphasia noted Cranial nerves: Funduscopic examination unremarkable. No papilledema. Pupils equally round and reactive to light. Extraocular muscles intact without nystagmus. No facial asymmetry noted. Facial sensation intact with the exception of altered sensation along the right jaw line. Hearing grossly intact to voice. Shoulder shrug bilaterally. Tongue is midline. Good palatal elevation. Strength: 5/5 both proximal and distally in upper extremities. Lower extremity hip flexion is 3/5. Sensation: Grossly intact to light touch in all extremities Coordination: Patient has good finger to nose without dysmetria Deep tendon reflexes: +1 in bilateral biceps and brachioradialis Station sitting up in bed appeared normal and stable. Laboratory Results Past 24 Hours: 08/05/16 18:15 Red Blood Count 4.25, Mean Corpuscular Volume 95.5, Mean Corpuscular Hemoglobin 30.6, Mean Corpuscular Hemoglobin Concent 32.0, Mean Platelet Volume 10.4, Neutrophils (%) (Auto) 73.5, Lymphocytes (%) (Auto) 18.0, Monocytes (%) (Auto) 5.6, Eosinophils (%) (Auto) 2.4, Basophils (%) (Auto) 0.2, Neutrophils # (Auto) 10.42, Lymphocytes # (Auto) 2.55, Monocytes # (Auto) 0.80, Eosinophils # (Auto) 0.34, Basophils # (Auto) 0.03 08/05/16 18:15 Test 08/05/16 18:15 White Blood Count 14.18 K/uL (4.8-10.8) Red Blood Count 4.25 M/uL (4.2-5.4) Hemoglobin 13.0 g/dL (12.0-16.0) Hematocrit 40.6 % (37-47) Mean Corpuscular Volume 95.5 fL (80-100) Mean Corpuscular Hemoglobin 30.6 pg (25-34) Mean Corpuscular Hemoglobin Concent 32.0 g/dl (32-36) Platelet Count 220 K/uL (130-400) Mean Platelet Volume 10.4 fL (7.4-10.4) Neutrophils (%) (Auto) 73.5 % Lymphocytes (%) (Auto) 18.0 % Monocytes (%) (Auto) 5.6 % Eosinophils (%) (Auto) 2.4 % Basophils (%) (Auto) 0.2 % Neutrophils # (Auto) 10.42 K/uL (1.4-6.5) Lymphocytes # (Auto) 2.55 K/uL (1.2-3.4) Monocytes # (Auto) 0.80 K/uL (0.11-0.59) Eosinophils # (Auto) 0.34 K/uL (0-0.5) Basophils # (Auto) 0.03 K/uL (0-0.2) RDW Standard Deviation 54.0 fL (36.4-46.3) RDW Coefficient of Variation 15.5 % (11.5-14.5) Immature Granulocyte % (Auto) 0.3 % Immature Granulocyte # (Auto) 0.04 K/uL (0.00-0.02) Prothrombin Time 12.5 SECONDS (9.0-12.0) Prothromb Time International Ratio 1.2 (0.9-1.1) Activated Partial Thromboplast Time 28.0 SECONDS (21.0-31.0) Partial Thromboplastin Ratio 1.1 Anion Gap 6.0 mmol/L (3-11) Est Creatinine Clear Calc Drug Dose 69.7 ml/min Estimated GFR () 110.4 Estimated GFR (Non- 95.3 BUN/Creatinine Ratio 12.1 (10-20) Calcium Level 8.3 mg/dl (8.5-10.1) Imaging As noted above in history of present illness Impression This is a 31-year-old female with chronic mixed migrainous type headaches with a history of worsening headaches sometimes associated with DIRECTOR OF ARCHITECT[employer] shunt failure, over or under shunting. Patient presents with sudden worsening of headaches yesterday compared to her baseline. Does have a strong component of increased intracranial pressure with symptoms of sudden worsening of headache when laying down or having her head in a down position, which may suggest under shunting of her DIRECTOR OF [employer]CHIT[employer] shunt. Plan There is no indication for Keppra for treatment of headaches, and was not what I had recommended over the phone last night to the emergency room, so I have discontinued this. Trial of IV Depakote/Solu-Medrol/Phenergan migraine cocktail (I have ordered this). If ineffective by Monday afternoon/Monday morning, would recommend evaluation with neurosurgery at [facility] to evaluate her DIRECTOR OF [employer] shunt. Continue IV ketorolac, Maxalt, tramadol, diclofenac, and Zofran as needed. Continue home prophylactic agents of gabapentin and nortriptyline. Patient was previously referred to pain management for Botox therapy for chronic migraine, and should follow up with pain management as an outpatient If no improvement by tomorrow, could consider starting Topamax 25 mg daily at bedtime for additional headache prophylaxis (although this will take time to take effect and would be titrated up as an outpatient.) Follow-up in neurology clinic as previously scheduled August 17. Thank you for allowing me to participate in this patient's care. If there is any questions or concerns, feel free to call/page me.
[2016-08-06] MEDS: hydrOXYzine HCL 25 MG TAB PO SCH (13:24)
[2016-08-06] MEDS: VALPROATE SOD IV 500 MG in DEXTROSE 5% 50ML 50 ML IV SCH ×2 (14:27→21:56)
--- NOTE | 2016-08-06 14:28 | DIAGNOSTIC IMAGING REPORT ---
TWO VIEW CHEST CLINICAL HISTORY: Dyspnea. FINDINGS: AP and lateral chest radiographs are compared to study dated 04/16/2016. The examination is severely degraded by large body habitus, as well as apical lordotic positioning and patient rotation on the AP view. A left subclavian central venous infusion port has been removed. A right subclavian central venous infusion port is new from previous. A ventriculostomy catheter traverses the right chest. The cardiomediastinal silhouette is stable. There is no radiographic evidence of congestive failure. There are low lung volumes and bibasilar atelectasis. No airspace consolidation is seen typical for pneumonia and there is no large pleural effusion. There is no pneumothorax. The bony thorax is grossly intact. Cholecystectomy clips are seen in the right upper quadrant. IMPRESSION: 1. Low lung volumes and bibasilar atelectasis with no acute cardiopulmonary abnormality. 2. A right subclavian central venous infusion port is new from previous. The left subclavian central venous infusion port identified on 04/16/2016 has been removed. Electronically signed by: Devin Dacosta M.D. 08/06/2016 2:27 PM Dictated Date/Time: 08/06/2016 2:24 PM
[2016-08-06] MEDS: NITROFURANTOIN MONOHYDRATE 100 MG CAP PO SCH (15:30)
[2016-08-06] MEDS: ALBUT/IPRATROP 3MG/0.5MG NEB 3 ML VIAL INH PRN (16:13)
[2016-08-07] MEDS: PROMETHAZINE HCL INJ 25 MG in SODIUM CHLORIDE 0.9% 50ML 50 ML IV SCH ×3 (02:02→17:34)
[2016-08-07 05:48] LABS: BASO % 0.1 %; BASO ABS # 0.01 K/uL (0-0.2); COMPLETE YES; HEMATOCRIT 36.4 % (37-47); IG% 0.5 %; LYMPH % 10.3 %; LYMPH ABS # 1.57 K/uL (1.2-3.4); MEAN CELL VOLUME 96.3 fL (80-100); MEAN CORPUSCULAR HGB CONC 32.1 g/dl (32-36); MEAN PLATELET VOLUME 10.9 fL (7.4-10.4); MONO % 2.2 %; NEUT % 86.9 %; PLATELET COUNT 195 K/uL (130-400); RED BLOOD COUNT 3.78 M/uL (4.2-5.4)
[2016-08-07] MEDS: LINACLOTIDE 290 MCG CAP PO SCH (06:00)
[2016-08-07] MEDS: HEPARIN SOD 5000 UNIT/0.5 ML CARP SQ SCH ×3 (06:00→22:26)
[2016-08-07] MEDS: LEVOTHYROXINE 25 MCG TAB PO SCH (06:00)
[2016-08-07 07:10] VITALS: BP 119/73; PULSE 96; TEMP 36.4; O2SAT 97
[2016-08-07] MEDS: FLUTICASONE/SALMETEROL (ADVAIR) 500/50 INH 14 PUFF INH SCH ×2 (07:17→20:35)
[2016-08-07] MEDS: ALBUTEROL HFA 8 GM INHALER INH PRN (07:17)
[2016-08-07] MEDS: LITHIUM CARBONATE 450 MG TABCR PO SCH (08:51)
[2016-08-07] MEDS: CLONAZEPAM 0.5 MG TAB PO SCH ×2 (08:51→20:36)
[2016-08-07] MEDS: DOCUSATE SODIUM 100 MG CAP PO SCH ×2 (08:51→20:37)
[2016-08-07] MEDS: METHYLPREDNISOLONE IV 500 MG in DEXTROSE 5% 250ML 250 ML IV SCH ×2 (08:51→21:35)
[2016-08-07] MEDS: HYOSCYAMINE SULFATE 0.125 MG SL TAB PO SCH ×4 (08:51→20:37)
[2016-08-07] MEDS: ARIPIprazole TAB 10 MG TAB PO SCH (08:52)
[2016-08-07] MEDS: CYANOCOBALAMIN 500 MCG TAB (VIT B-12) PO SCH (08:52)
[2016-08-07] MEDS: FLUCONAZOLE 100 MG TAB PO SCH (08:52)
[2016-08-07] MEDS: GABAPENTIN 300 MG CAP PO SCH ×3 (08:52→20:37)
[2016-08-07] MEDS: SENNA 8.6 MG TAB PO SCH (08:53)
[2016-08-07] MEDS: NITROFURANTOIN MONOHYDRATE 100 MG CAP PO SCH ×2 (08:53→20:37)
[2016-08-07] MEDS: PANTOprazole SOD 40 MG TAB PO SCH (08:53)
[2016-08-07] MEDS: VALPROATE SOD IV 500 MG in DEXTROSE 5% 50ML 50 ML IV SCH ×2 (08:53→20:13)
--- NOTE | 2016-08-07 09:06 | Progress Note ---
Subjective Date of Service: Aug 07, 2016. Subjective Pt evaluation today including: conversation w/ patient, physical exam, lab review, review of inpatient medication list Patient still c/o 9/10 headache. No fevers. No nausea/vomiting Apparently, she slept well but kept waking up bec of the headache. Breathing is improving slightly with nebs. OTherwise, good appetite. Problem List Medical Problems: (1) Acute pyelonephritis Status: Acute (2) Allergic reaction Status: Acute (3) Allergic reaction Status: Acute (4) Complicated urinary tract infection Status: Acute (5) Gabapentin overdose Status: Acute (6) Headache Status: Acute (7) Intractable headache Status: Acute (8) Intractable pain Status: Acute (9) Low back pain Status: Acute (10) Lower abdominal pain Status: Acute (11) Lower abdominal pain Status: Acute (12) Nausea Status: Acute (13) Pelvic pain Status: Acute (14) Right flank pain Status: Acute (15) Right leg pain Status: Acute (16) Self-harming behavior Status: Acute (17) Shunt malfunction Status: Acute (18) Shunt malfunction Status: Acute (19) Suicidal ideation Status: Acute (20) Suicidal ideation Status: Acute (21) Suprapubic pain Status: Acute (22) Urinary tract infection Status: Acute (23) Urinary tract infection Status: Acute (24) UTI (urinary tract infection) Status: Acute (25) UTI (urinary tract infection) Status: Acute Review of Systems All Other Systems: Reviewed and Negative Medications Acetaminophen (Tylenol Tab) 650 mg Q4H PRN PO Last administered on 08/06/16 18 :26; Admin Dose 650 MG; Start 08/05/16 at 22:45; Stop 09/04/16 at 22:44 Al Hydrox/Mg Hydrox/Simethicone (Maalox Max Susp) 15 ml Q4H PRN PO; Start at 22:45; Stop 09/04/16 at 22:44 Albuterol (Ventolin Hfa Inhaler) 2 puffs Q4 PRN INH Last administered on 07:17; Admin Dose 2 PUFFS; Start 08/05/16 at 22:30; Stop 09/04/16 at 22:29 Albuterol/ Ipratropium (Duoneb) 3 ml Q4H PRN INH Last administered on 08/06/16 16:13; Admin Dose 3 ML; Start 08/06/16 at 12:00; Stop 09/05/16 at 11:59 Aripiprazole (Abilify Tab) 20 mg DAILY PO Last administered on 08/07/16 08:52; Admin Dose 20 MG; Start 08/06/16 at 09:00; Stop 09/05/16 at 08:59 Clonazepam (Klonopin Tab) 0.5 mg BID PO Last administered on 08/07/16 08:51; Admin Dose 0.5 MG; Start 08/06/16 at 09:00; Stop 09/05/16 at 08:59 Cyanocobalamin (Vitamin B-12 Tab) 500 mcg DAILY PO Last administered on 08:52; Admin Dose 500 MCG; Start 08/06/16 at 09:00; Stop 09/05/16 at 08:59 Docusate Sodium (coLACE CAP) 100 mg BID PO Last administered on 08/07/16 08:51; Admin Dose 100 MG; Start 08/06/16 at 09:00; Stop 09/05/16 at 08:59 Fluconazole (Diflucan Tab) 100 mg DAILY PO Last administered on 08/07/16 08:52; Admin Dose 100 MG; Start 08/06/16 at 09:00; Stop 08/09/16 at 23:59 Gabapentin (Neurontin Cap) 300 mg TID PO Last administered on 08/07/16 08:52; Admin Dose 300 MG; Start 08/06/16 at 09:00; Stop 09/05/16 at 08:59 Heparin Sodium (Porcine) (Heparin 100 Unit/ml 5ml Flush) 5 ml PRN PRN IV Last administered on 08/07/16 05:43; Admin Dose 5 ML; Start 08/06/16 at 14:00; Stop at 13:59 Heparin Sodium (Porcine) (Heparin Sq 5000 Unit/0.5ml) 5,000 unit Q8H SQ Last administered on 08/06/16 21:55; Admin Dose 5,000 UNIT; Start 08/06/16 at 06:00; Stop 09/05/16 at 05:59 Hydromorphone HCl (Dilaudid Inj) 0.5 mg Q3H PRN IV; Start 08/05/16 at 22:30; Stop 08/19/16 at 22:29 Hydroxyzine HCl (Vistaril Tab) 25 mg Q8 PRN PO Last administered on 08/06/16 19 :09; Admin Dose 25 MG; Start 08/05/16 at 22:30; Stop 09/04/16 at 22:29 Hydroxyzine HCl (Vistaril Tab) 25 mg QD@1200 PO Last administered on 08/06/16 13 :24; Admin Dose 25 MG; Start 08/06/16 at 12:00; Stop 09/05/16 at 11:59 Hyoscyamine Sulfate (Levsin Tab) 0.125 mg QID PO Last administered on 08/07/16 08:51; Admin Dose 0.125 MG; Start 08/06/16 at 09:00; Stop 09/05/16 at 08:59 Levothyroxine Sodium (Synthroid Tab) 25 mcg DAILYBB PO Last administered on 06:00; Admin Dose 25 MCG; Start 08/06/16 at 06:00; Stop 09/05/16 at 06:59 Linaclotide 290 mcg 290 mcg DAILYBB PO Last administered on 08/07/16 06:00; Admin Dose 290 MCG; Start 08/06/16 at 06:00; Stop 09/05/16 at 05:59 [place] Carbonate (Eskal[place] Cr Tab) 450 mg QAM PO Last administered on 08/07/16 08:51; Admin Dose 450 MG; Start 08/06/16 at 09:00; Stop 09/05/16 at 08:59 [place] Carbonate ([place] Carbonate Tab) 600 mg HS PO Last administered on 20:59; Admin Dose 600 MG; Start 08/06/16 at 21:00; Stop 09/05/16 at 20:59 Magnesium Hydroxide (Milk Of Magnesia Susp) 30 ml Q6H PRN PO Last administered on 08/06/16 22:17; Admin Dose 30 ML; Start 08/05/16 at 22:45; Stop 09/04/16 at 22: 44 Meclizine HCl (Antivert Tab) 25 mg Q8 PRN PO; Start 08/05/16 at 22:30; Stop 09/04 at 22:29 Methylprednisolone Sodium Succinate 500 mg/Dextrose 258 ml @ 250 mls/hr Q12 IV Last administered on 08/07/16 08:51; Admin Dose 250 MLS/HR; Start 08/06/16 at 09: 30; Stop 08/09/16 at 04:44 Nitrofurantoin Macrocrystals (Macrobid Cap) 100 mg BID PO Last administered on 08:53; Admin Dose 100 MG; Start 08/06/16 at 16:00; Stop 08/11/16 at 15:59 Nortriptyline HCl (Pamelor Cap) 100 mg HS PO Last administered on 08/06/16 21:00 ; Admin Dose 100 MG; Start 08/06/16 at 21:00; Stop 09/05/16 at 20:59 Ondansetron HCl (Zofran Inj) 4 mg Q6H PRN IV; Start 08/05/16 at 22:45; Stop 09/04 at 22:44 Pantoprazole Sodium (Protonix Tab) 40 mg QAM PO Last administered on 08/07/16 08 :53; Admin Dose 40 MG; Start 08/06/16 at 09:00; Stop 09/05/16 at 08:59 Polyethylene (Miralax Powder Packet) 17 gm DAILY PRN PO; Start 08/05/16 at 22:45 ; Stop 09/04/16 at 22:44 Promethazine HCl/ Sodium Chloride (Phenergan Inj/ Nss 50ml) 51 ml @ 204 mls/hr Q8@0200,1000,1800 IV Last administered on 08/07/16 02:02; Admin Dose 204 MLS/HR ; Start 08/06/16 at 09:30; Stop 09/05/16 at 09:29 Ranitidine HCl (zANTac TAB) 150 mg HS PO Last administered on 08/06/16 21:00; Admin Dose 150 MG; Start 08/06/16 at 21:00; Stop 09/05/16 at 20:59 Salmeterol Xinafoate/ Fluticasone (Advair Diskus 500/50 Inh) 1 puff BID INH Last administered on 08/07/16 07:17; Admin Dose 1 PUFF; Start 08/06/16 at 09:00; Stop 09/05/16 at 08:59 Senna (Senokot Tab) 8.6 mg DAILY PO Last administered on 08/07/16 08:53; Admin Dose 8.6 MG; Start 08/06/16 at 09:00; Stop 09/05/16 at 08:59 Valproate Sodium 500 mg/Dextrose 55 ml @ 55 mls/hr Q12 IV Last administered on 08:53; Admin Dose 55 MLS/HR; Start 08/06/16 at 09:30; Stop 09/05/16 at 09: 29 Objective Vital Signs Date Time Temp Pulse Resp B/P Pulse Ox O2 Delivery O2 Flow Rate FiO2 08/07/16 07:10 36.4 96 20 119/73 97 Room Air 08/07/16 07:10 97 Room Air 08/06/16 23:47 Nasal Cannula 2.0 08/06/16 22:52 36.8 107 20 134/78 94 Room Air 08/06/16 21:34 104 08/06/16 18:53 36.8 116 22 118/64 95 Nasal Cannula 2.0 118 08/06/16 16:15 95 18 95 Room Air 08/06/16 15:15 Nasal Cannula 2.0 08/06/16 15:02 36.8 114 20 118/66 95 Nasal Cannula 2.0 90 Physical Exam Comments: nad, aox3 unchanged neuro exam s1 s2 rrr, no murmurs appreciated ctab no w/r/r but limited due to body habitus abd obese, soft, nt/nd +BS ble bka Laboratory Results Last 24 Hours Test 08/07/16 05:28 White Blood Count 15.30 K/uL Red Blood Count 3.78 M/uL Hemoglobin 11.7 g/dL Hematocrit 36.4 % Mean Corpuscular Volume 96.3 fL Mean Corpuscular Hemoglobin 31.0 pg Mean Corpuscular Hemoglobin Concent 32.1 g/dl Platelet Count 195 K/uL Mean Platelet Volume 10.9 fL Neutrophils (%) (Auto) 86.9 % Lymphocytes (%) (Auto) 10.3 % Monocytes (%) (Auto) 2.2 % Eosinophils (%) (Auto) 0.0 % Basophils (%) (Auto) 0.1 % Neutrophils # (Auto) 13.30 K/uL Lymphocytes # (Auto) 1.57 K/uL Monocytes # (Auto) 0.34 K/uL Eosinophils # (Auto) 0.00 K/uL Basophils # (Auto) 0.01 K/uL RDW Standard Deviation 53.9 fL RDW Coefficient of Variation 15.3 % Immature Granulocyte % (Auto) 0.5 % Immature Granulocyte # (Auto) 0.08 K/uL Assessment and Plan 1. Acute migraine - neurology consulted, appreciate input - if pain does not improve today, would need to be transferred to [place] for further mgt of her headache and evaluation of her shunt - on solu-medrol/phenergan/depakote - pain meds prn - CT head without acute pathology 2. Yeast in the urine, ?UTI - was started on macrobid outpatient and was to continue until Monday - on prophylactic fluconazole? daily - f/u UA 3. Constipation - will institute aggressive bowel regimen and prn meds 4. Bipolar - recent admit with suicidal ideation - cont home meds - Clonazepam, Abilify 5. SOB - CXR with no e/o pneumonia - IS for atelectasis - prn nebs dvt ppx
--- NOTE | 2016-08-07 11:18 | Neurology Progress Notes ---
Neurology Progress Note Date of Service Aug 07, 2016. Subjective Patient denies any improvement of headaches. No worsening as well. Patient reports that she still is unable to lay flat due to worsening of headaches when laying flat. is sleeping sitting up. Reports that her speech seems a little bit more slurred today than normal. No other new neurological symptoms otherwise. Still has blurred and double vision. No medication side effects reported except for maybe some swelling in her hands from steroids which she has had in the past. Objective Date Time Temp Pulse Resp B/P Pulse Ox O2 Delivery O2 Flow Rate FiO2 08/07/16 07:10 36.4 96 20 119/73 97 Room Air 08/07/16 07:10 97 Room Air 08/06/16 23:47 Nasal Cannula 2.0 08/06/16 22:52 36.8 107 20 134/78 94 Room Air 08/06/16 21:34 104 08/06/16 18:53 36.8 116 22 118/64 95 Nasal Cannula 2.0 118 08/06/16 16:15 95 18 95 Room Air 08/06/16 15:15 Nasal Cannula 2.0 08/06/16 15:02 36.8 114 20 118/66 95 Nasal Cannula 2.0 90 Last 24 Hours Test 08/07/16 05:28 White Blood Count 15.30 K/uL Red Blood Count 3.78 M/uL Hemoglobin 11.7 g/dL Hematocrit 36.4 % Mean Corpuscular Volume 96.3 fL Mean Corpuscular Hemoglobin 31.0 pg Mean Corpuscular Hemoglobin Concent 32.1 g/dl Platelet Count 195 K/uL Mean Platelet Volume 10.9 fL Neutrophils (%) (Auto) 86.9 % Lymphocytes (%) (Auto) 10.3 % Monocytes (%) (Auto) 2.2 % Eosinophils (%) (Auto) 0.0 % Basophils (%) (Auto) 0.1 % Neutrophils # (Auto) 13.30 K/uL Lymphocytes # (Auto) 1.57 K/uL Monocytes # (Auto) 0.34 K/uL Eosinophils # (Auto) 0.00 K/uL Basophils # (Auto) 0.01 K/uL RDW Standard Deviation 53.9 fL RDW Coefficient of Variation 15.3 % Immature Granulocyte % (Auto) 0.5 % Immature Granulocyte # (Auto) 0.08 K/uL Exam: Gen.: Patient is alert and oriented lying in bed in no acute distress. Does appear uncomfortable HEENT: Normocephalic atraumatic no scleral icterus Heart: Regular rate and rhythm Extremities: No rashes noted. Bilateral amputation of lower extremities Neurological examination: Mental status: Patient is alert and oriented to person place and time. Able to give her own history in detail. Attention and concentration are normal for the situation Speech speech is fluent but does sound more slurred than baseline. Cranial nerves: No facial asymmetry noted. Hearing grossly intact to voice. Strength: 5/5 both proximal and distally in upper extremities. Lower extremity hip flexion is 3/5. Station sitting up in bed appeared normal and stable. Current Inpatient Medications Medications (Trade) Dose Ordered Sig/Brenna Route Start Time Stop Time Status Last Admin Dose Admin Albuterol (Ventolin Hfa Inhaler) 2 puffs Q4 PRN INH 08/05/16 22:30 09/04/16 22:29 08/07/16 07:17 2 PUFFS Aripiprazole (Abilify Tab) 20 mg DAILY PO 08/06/16 09:00 09/05/16 08:59 08/07/16 08:52 20 MG Clonazepam (Klonopin Tab) 0.5 mg BID PO 08/06/16 09:00 09/05/16 08:59 08/07/16 08:51 0.5 MG Cyanocobalamin (Vitamin B-12 Tab) 500 mcg DAILY PO 08/06/16 09:00 09/05/16 08:59 08/07/16 08:52 500 MCG Docusate Sodium (coLACE CAP) 100 mg BID PO 08/06/16 09:00 09/05/16 08:59 08/07/16 08:51 100 MG Fluconazole (Diflucan Tab) 100 mg DAILY PO 08/06/16 09:00 08/09/16 23:59 08/07/16 08:52 100 MG Salmeterol Xinafoate/ Fluticasone (Advair Diskus 500/50 Inh) 1 puff BID INH 08/06/16 09:00 09/05/16 08:59 08/07/16 07:17 1 PUFF Gabapentin (Neurontin Cap) 300 mg TID PO 08/06/16 09:00 09/05/16 08:59 08/07/16 08:52 300 MG Hydroxyzine HCl (Vistaril Tab) 25 mg QD@1200 PO 08/06/16 12:00 09/05/16 11:59 08/06/16 13:24 25 MG Hyoscyamine Sulfate (Levsin Tab) 0.125 mg QID PO 08/06/16 09:00 09/05/16 08:59 08/07/16 08:51 0.125 MG [place] Carbonate ([place] Carbonate Tab) 600 mg HS PO 08/06/16 21:00 09/05/16 20:59 08/06/16 20:59 600 MG [place] Carbonate (Eskalith Cr Tab) 450 mg QAM PO 08/06/16 09:00 09/05/16 08:59 08/07/16 08:51 450 MG Meclizine HCl (Antivert Tab) 25 mg Q8 PRN PO 08/05/16 22:30 09/04/16 22:29 Nortriptyline HCl (Pamelor Cap) 100 mg HS PO 08/06/16 21:00 09/05/16 20:59 08/06/16 21:00 100 MG Pantoprazole Sodium (Protonix Tab) 40 mg QAM PO 08/06/16 09:00 09/05/16 08:59 08/07/16 08:53 40 MG Ranitidine HCl (zANTac TAB) 150 mg HS PO 08/06/16 21:00 09/05/16 20:59 08/06/16 21:00 150 MG Senna (Senokot Tab) 8.6 mg DAILY PO 08/06/16 09:00 09/05/16 08:59 08/07/16 08:53 8.6 MG Hydroxyzine HCl (Vistaril Tab) 25 mg Q8 PRN PO 08/05/16 22:30 09/04/16 22:29 08/06/16 19:09 25 MG Levothyroxine Sodium (Synthroid Tab) 25 mcg DAILYBB PO 08/06/16 06:00 09/05/16 06:59 08/07/16 06:00 25 MCG Hydromorphone HCl (Dilaudid Inj) 0.5 mg Q3H PRN IV 08/05/16 22:30 08/19/16 22:29 Heparin Sodium (Porcine) (Heparin Sq 5000 Unit/0.5ml) 5,000 unit Q8H SQ 08/06/16 06:00 09/05/16 05:59 08/06/16 21:55 5,000 UNIT Acetaminophen (Tylenol Tab) 650 mg Q4H PRN PO 08/05/16 22:45 09/04/16 22:44 08/06/16 18:26 650 MG Al Hydrox/Mg Hydrox/Simethicone (Maalox Max Susp) 15 ml Q4H PRN PO 08/05/16 22:45 09/04/16 22:44 Magnesium Hydroxide (Milk Of Magnesia Susp) 30 ml Q6H PRN PO 08/05/16 22:45 09/04/16 22:44 08/06/16 22:17 30 ML Polyethylene (Miralax Powder Packet) 17 gm DAILY PRN PO 08/05/16 22:45 09/04/16 22:44 Ondansetron HCl (Zofran Inj) 4 mg Q6H PRN IV 08/05/16 22:45 09/04/16 22:44 Linaclotide 290 mcg 290 mcg DAILYBB PO 08/06/16 06:00 09/05/16 05:59 08/07/16 06:00 290 MCG Valproate Sodium 500 mg/Dextrose 55 ml @ 55 mls/hr Q12 IV 08/06/16 09:30 09/05/16 09:29 08/07/16 08:53 55 MLS/HR Methylprednisolone Sodium Succinate 500 mg/Dextrose 258 ml @ 250 mls/hr Q12 IV 08/06/16 09:30 08/09/16 04:44 08/07/16 08:51 250 MLS/HR Promethazine HCl/ Sodium Chloride (Phenergan Inj/ Nss 50ml) 51 ml @ 204 mls/hr Q8@0200,1000,1800 IV 08/06/16 09:30 09/05/16 09:29 08/07/16 09:58 204 MLS/HR Albuterol/ Ipratropium (Duoneb) 3 ml Q4H PRN INH 08/06/16 12:00 09/05/16 11:59 08/06/16 16:13 3 ML Heparin Sodium (Porcine) (Heparin 100 Unit/ml 5ml Flush) 5 ml PRN PRN IV 08/06/16 14:00 09/05/16 13:59 08/07/16 10:35 5 ML Nitrofurantoin Macrocrystals (Macrobid Cap) 100 mg BID PO 08/06/16 16:00 08/11/16 15:59 08/07/16 08:53 100 MG Impression This is a 31-year-old female with chronic mixed migrainous type headaches with a history of worsening headaches sometimes associated with 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 Patient presents with sudden worsening of headaches Monday compared to her baseline. I'm concerned that her sudden worsening of headaches could be secondary to under shunting of her GRAPPLE SKIDDER OPERATOR shunt with symptoms of increased intracranial pressure since she is unable to lay flat due to worsening headaches. No improvement with IV Depakote, Solu-Medrol, and Phenergan. Only medication side effect reported is some swelling of hands due to steroids. Plan May continue IV Depakote/Solu-Medrol/Phenergan migraine cocktail for 1 more day. If no improvement would discontinue Monday with an oral Medrol Dosepak taper. If no improvement of headaches by Monday afternoon/Monday morning, would recommend evaluation with neurosurgery at [facility] to evaluate her GRAPPLE SKIDDER OPERATOR shunt, since I'm concerned that there is a component of increased intracranial pressure to her current headaches. Continue IV ketorolac, Maxalt, tramadol, diclofenac, and Zofran as needed. Continue home prophylactic agents of gabapentin and nortriptyline. Patient was previously referred to pain management for Botox therapy for chronic migraine, and should follow up with pain management as an outpatient I will order Topamax 25 mg daily at bedtime for additional headache prophylaxis starting (although this will take time to take effect and would be titrated up as an outpatient.) Common side effects of Topamax is numbness and tingling of extremities, and cognitive side effects (mental slowing and word finding). Rarely Topamax can cause kidney stones. Follow-up in neurology clinic as previously scheduled August 17. Thank you for allowing me to participate in this patient's care. If there is any questions or concerns, feel free to call/page me. Strongly recommend GRAPPLE SKIDDER OPERATOR shunt evaluation by neurosurgery Monday if no improvement.
[2016-08-07] MEDS: hydrOXYzine HCL 25 MG TAB PO SCH (12:59)
[2016-08-07 15:10] VITALS: BP_SYST 121; BP_SYST 128; BP_DIAS 72; BP_DIAS 82; PULSE 108; PULSE 81; TEMP 36.7; TEMP 37.3; O2SAT 96; O2SAT 97
[2016-08-07 17:00] VITALS: PULSE 100
[2016-08-07 17:12] LABS: URINE APPEARANCE CLOUDY (CLEAR); URINE BILIRUBIN NEG (NEG); URINE COLOR YELLOW; URINE NITRITE POS (NEG); UROBILINOGEN NEG (NEG)
[2016-08-07 17:14] LABS: MANUAL MICROSCOPIC REQUIRED? NO; REVIEW REQ? NO
[2016-08-07 19:12] VITALS: PULSE 111; O2SAT 100
[2016-08-07] MEDS: ALBUT/IPRATROP 3MG/0.5MG NEB 3 ML VIAL INH PRN (19:12)
[2016-08-07] MEDS: LITHIUM CARBONATE 300 MG TAB PO SCH (20:36)
[2016-08-07] MEDS: NORTRIPTYLINE HCL 25 MG CAP PO SCH (20:36)
[2016-08-07] MEDS: RANITIDINE HCL 150 MG TAB PO SCH (20:37)
[2016-08-07] MEDS ORDERED: TOPIRAMATE 25 MG TAB PO SCH (21:00)
[2016-08-07 22:50] VITALS: BP 113/65; PULSE 101; TEMP 36.5; O2SAT 98
[2016-08-08] MEDS: PROMETHAZINE HCL INJ 25 MG in SODIUM CHLORIDE 0.9% 50ML 50 ML IV SCH ×2 (02:04→11:01)
[2016-08-08] MEDS: LINACLOTIDE 290 MCG CAP PO SCH (05:54)
[2016-08-08] MEDS: LEVOTHYROXINE 25 MCG TAB PO SCH (05:54)
[2016-08-08] MEDS: HEPARIN SOD 5000 UNIT/0.5 ML CARP SQ SCH (05:58)
[2016-08-08 06:17] LABS: BASO % 0.1 %; BASO ABS # 0.01 K/uL (0-0.2); COMPLETE YES; EOS % 0.1 %; IG% 0.5 %; LYMPH % 10.6 %; MEAN CELL VOLUME 97.6 fL (80-100); MEAN CORPUSCULAR HEMOGLOBIN 30.6 pg (25-34); MEAN CORPUSCULAR HGB CONC 31.4 g/dl (32-36); MEAN PLATELET VOLUME 11.1 fL (7.4-10.4); MONO % 2.1 %; NEUT % 86.6 %; PLATELET COUNT 209 K/uL (130-400); RED BLOOD COUNT 3.79 M/uL (4.2-5.4); WHITE BLOOD COUNT 14.19 K/uL (4.8-10.8)
[2016-08-08 07:56] VITALS: BP 112/70; PULSE 88; TEMP 36.4; O2SAT 94
--- NOTE | 2016-08-08 07:57 | Neurology Progress Notes ---
Neurology Progress Note Date of Service Aug 08, 2016. Subjective Patient continues to have a generalized headache rated 9 out of 10. It is worse on the right than the left side. It is a squeezing pulsating pain worse when she is up and a little better when she is lying down. She has some blurry and double vision at times. Objective Date Time Temp Pulse Resp B/P Pulse Ox O2 Delivery O2 Flow Rate FiO2 08/08/16 00:30 Room Air 08/08/16 00:30 18 Room Air 08/07/16 22:50 36.5 101 22 113/65 98 Nasal Cannula 2.0 08/07/16 19:12 111 16 100 Nasal Cannula 2.0 08/07/16 17:00 100 08/07/16 15:15 Nasal Cannula 2.0 08/07/16 15:10 36.7 108 18 121/72 96 Nasal Cannula 4.0 Last 24 Hours Test 08/08/16 05:55 White Blood Count 14.19 K/uL Red Blood Count 3.79 M/uL Hemoglobin 11.6 g/dL Hematocrit 37.0 % Mean Corpuscular Volume 97.6 fL Mean Corpuscular Hemoglobin 30.6 pg Mean Corpuscular Hemoglobin Concent 31.4 g/dl Platelet Count 209 K/uL Mean Platelet Volume 11.1 fL Neutrophils (%) (Auto) 86.6 % Lymphocytes (%) (Auto) 10.6 % Monocytes (%) (Auto) 2.1 % Eosinophils (%) (Auto) 0.1 % Basophils (%) (Auto) 0.1 % Neutrophils # (Auto) 12.30 K/uL Lymphocytes # (Auto) 1.50 K/uL Monocytes # (Auto) 0.30 K/uL Eosinophils # (Auto) 0.01 K/uL Basophils # (Auto) 0.01 K/uL RDW Standard Deviation 56.3 fL RDW Coefficient of Variation 15.9 % Immature Granulocyte % (Auto) 0.5 % Immature Granulocyte # (Auto) 0.07 K/uL Exam: She is awake and alert. Speech is normal without aphasia. There is some hesitancy to her speech but no obvious dysarthria. Extraocular eye muscles are intact without nystagmus. Pupils are 5 mm bilaterally and reactive to light. Tongue is midline. There is no facial droop. Neck is supple. Arm movement is normal and symmetrical. Current Inpatient Medications Medications (Trade) Dose Ordered Sig/Brenna Route Start Time Stop Time Status Last Admin Dose Admin Albuterol (Ventolin Hfa Inhaler) 2 puffs Q4 PRN INH 08/05/16 22:30 09/04/16 22:29 08/07/16 07:17 2 PUFFS Aripiprazole (Abilify Tab) 20 mg DAILY PO 08/06/16 09:00 09/05/16 08:59 08/07/16 08:52 20 MG Clonazepam (Klonopin Tab) 0.5 mg BID PO 08/06/16 09:00 09/05/16 08:59 08/07/16 20:36 0.5 MG Cyanocobalamin (Vitamin B-12 Tab) 500 mcg DAILY PO 08/06/16 09:00 09/05/16 08:59 08/07/16 08:52 500 MCG Docusate Sodium (coLACE CAP) 100 mg BID PO 08/06/16 09:00 09/05/16 08:59 08/07/16 20:37 100 MG Fluconazole (Diflucan Tab) 100 mg DAILY PO 08/06/16 09:00 08/09/16 23:59 08/07/16 08:52 100 MG Salmeterol Xinafoate/ Fluticasone (Advair Diskus 500/50 Inh) 1 puff BID INH 08/06/16 09:00 09/05/16 08:59 08/07/16 20:35 1 PUFF Gabapentin (Neurontin Cap) 300 mg TID PO 08/06/16 09:00 09/05/16 08:59 08/07/16 20:37 300 MG Hydroxyzine HCl (Vistaril Tab) 25 mg QD@1200 PO 08/06/16 12:00 09/05/16 11:59 08/07/16 12:59 25 MG Hyoscyamine Sulfate (Levsin Tab) 0.125 mg QID PO 08/06/16 09:00 09/05/16 08:59 08/07/16 20:37 0.125 MG [place] Carbonate ([place] Carbonate Tab) 600 mg HS PO 08/06/16 21:00 09/05/16 20:59 08/07/16 20:36 600 MG [place] Carbonate (Eskalith Cr Tab) 450 mg QAM PO 08/06/16 09:00 09/05/16 08:59 08/07/16 08:51 450 MG Meclizine HCl (Antivert Tab) 25 mg Q8 PRN PO 08/05/16 22:30 09/04/16 22:29 Nortriptyline HCl (Pamelor Cap) 100 mg HS PO 08/06/16 21:00 09/05/16 20:59 08/07/16 20:36 100 MG Pantoprazole Sodium (Protonix Tab) 40 mg QAM PO 08/06/16 09:00 09/05/16 08:59 08/07/16 08:53 40 MG Ranitidine HCl (zANTac TAB) 150 mg HS PO 08/06/16 21:00 09/05/16 20:59 08/07/16 20:37 150 MG Senna (Senokot Tab) 8.6 mg DAILY PO 08/06/16 09:00 09/05/16 08:59 08/07/16 08:53 8.6 MG Hydroxyzine HCl (Vistaril Tab) 25 mg Q8 PRN PO 08/05/16 22:30 09/04/16 22:29 08/06/16 19:09 25 MG Levothyroxine Sodium (Synthroid Tab) 25 mcg DAILYBB PO 08/06/16 06:00 09/05/16 06:59 08/08/16 05:54 25 MCG Hydromorphone HCl (Dilaudid Inj) 0.5 mg Q3H PRN IV 08/05/16 22:30 08/19/16 22:29 Heparin Sodium (Porcine) (Heparin Sq 5000 Unit/0.5ml) 5,000 unit Q8H SQ 08/06/16 06:00 09/05/16 05:59 08/08/16 05:58 5,000 UNIT Acetaminophen (Tylenol Tab) 650 mg Q4H PRN PO 08/05/16 22:45 09/04/16 22:44 08/06/16 18:26 650 MG Al Hydrox/Mg Hydrox/Simethicone (Maalox Max Susp) 15 ml Q4H PRN PO 08/05/16 22:45 09/04/16 22:44 Magnesium Hydroxide (Milk Of Magnesia Susp) 30 ml Q6H PRN PO 08/05/16 22:45 09/04/16 22:44 08/06/16 22:17 30 ML Polyethylene (Miralax Powder Packet) 17 gm DAILY PRN PO 08/05/16 22:45 09/04/16 22:44 Ondansetron HCl (Zofran Inj) 4 mg Q6H PRN IV 08/05/16 22:45 09/04/16 22:44 Linaclotide 290 mcg 290 mcg DAILYBB PO 08/06/16 06:00 09/05/16 05:59 08/08/16 05:54 290 MCG Valproate Sodium 500 mg/Dextrose 55 ml @ 55 mls/hr Q12 IV 08/06/16 09:30 09/05/16 09:29 08/07/16 20:13 55 MLS/HR Methylprednisolone Sodium Succinate 500 mg/Dextrose 258 ml @ 250 mls/hr Q12 IV 08/06/16 09:30 08/09/16 04:44 08/07/16 21:35 250 MLS/HR Promethazine HCl/ Sodium Chloride (Phenergan Inj/ Nss 50ml) 51 ml @ 204 mls/hr Q8@0200,1000,1800 IV 08/06/16 09:30 09/05/16 09:29 08/08/16 02:04 204 MLS/HR Albuterol/ Ipratropium (Duoneb) 3 ml Q4H PRN INH 08/06/16 12:00 09/05/16 11:59 08/07/16 19:12 3 ML Heparin Sodium (Porcine) (Heparin 100 Unit/ml 5ml Flush) 5 ml PRN PRN IV 08/06/16 14:00 09/05/16 13:59 08/08/16 02:47 5 ML Nitrofurantoin Macrocrystals (Macrobid Cap) 100 mg BID PO 08/06/16 16:00 08/11/16 15:59 08/07/16 20:37 100 MG Topiramate (Topamax Tab) 25 mg QPM PO 08/07/16 21:00 09/06/16 20:59 08/07/16 20:36 25 MG Impression 1. Hydrocephalus and spina bifida with shunted placement with recent shunt revision in the fall of 2015. 2. Long-standing history of intermittent mixed and migrainous headaches failing multiple treatments. The patient is refractory to medication treatment and the plan was to send her to the neurosurgeons at [facility] if she did not make any improvements. Plan 1. I no further neurologic treatment recommendations to make at this time. 2. Refer to [facility] neurosurgery for evaluation. Please contact me if I can be of further assistance. I spoke with Dr. Lynch regarding this case.
[2016-08-08] MEDS: VALPROATE SOD IV 500 MG in DEXTROSE 5% 50ML 50 ML IV SCH (08:49)
[2016-08-08] MEDS: LITHIUM CARBONATE 450 MG TABCR PO SCH (08:52)
[2016-08-08] MEDS: CYANOCOBALAMIN 500 MCG TAB (VIT B-12) PO SCH (08:52)
[2016-08-08] MEDS: NITROFURANTOIN MONOHYDRATE 100 MG CAP PO SCH (08:52)
[2016-08-08] MEDS: DOCUSATE SODIUM 100 MG CAP PO SCH (08:52)
[2016-08-08] MEDS: HYOSCYAMINE SULFATE 0.125 MG SL TAB PO SCH (08:52)
[2016-08-08] MEDS: CLONAZEPAM 0.5 MG TAB PO SCH (08:52)
[2016-08-08] MEDS: PANTOprazole SOD 40 MG TAB PO SCH (08:53)
[2016-08-08] MEDS: SENNA 8.6 MG TAB PO SCH (08:53)
[2016-08-08] MEDS: GABAPENTIN 300 MG CAP PO SCH (08:53)
[2016-08-08] MEDS: FLUCONAZOLE 100 MG TAB PO SCH (08:53)
[2016-08-08] MEDS: ARIPIprazole TAB 10 MG TAB PO SCH (08:53)
[2016-08-08] MEDS: FLUTICASONE/SALMETEROL (ADVAIR) 500/50 INH 14 PUFF INH SCH (08:54)
[2016-08-08 08:57] VITALS: O2SAT 94
[2016-08-08] MEDS ORDERED: MCRB100 PO (09:09)
[2016-08-08] MEDS ORDERED: ABL10 PO (09:09)
[2016-08-08] MEDS ORDERED: LTHSR450 PO (09:09)
[2016-08-08] MEDS ORDERED: TPM25 PO (09:09)
[2016-08-08 09:28] VITALS: BP 112/70; PULSE 88; TEMP 36.4; O2SAT 94
--- NOTE | 2016-08-08 09:28 | Discharge Instructions ---
Discharge Instructions Admission Reason for Admission: Migraine Discharge Discharge Diagnosis / Problem: Intractable headache Discharge Goals Goal(s): Decrease discomfort, Improve function, Increase independence, Improve disease control, Learn about illness, Diagnostic testing, Prevent Disease Progression Activity Recommendations Activity Limitations: resume your previous activity Per [place] recommendations . 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 for pain management Patient is aware of this plan Current Hospital Diet Patient's current hospital diet: Regular Diet Discharge Diet Recommended Diet: Regular Diet Pending Studies Studies pending at discharge: no Laboratory Results Hemoglobin A1c Test 06/27/16 06:05 Range/Units Estimated Average Glucose 85 mg/dl Hemoglobin A1c 4.6 4.5-5.6 % Lipid Panel Test 06/26/16 06:20 Range/Units Triglycerides Level 135 0-150 mg/dl Cholesterol Level 190 0-200 mg/dl HDL Cholesterol 53 mg/dl Cholesterol/HDL Ratio 3.6 LDL Cholesterol, Calculated 110 mg/dl Medical Emergencies . Who to Call and When: Medical Emergencies: If at any time you feel your situation is an emergency, please call 911 immediately. . Non-Emergent Contact Non-Emergency issues call your: Primary Care Provider Call Non-Emergent contact if: you have a fever, your pain is worsening . . "Provider Documentation" section prepared by Riki Lynch. VTE Core Measure Inpt VTE Proph given/why not?: Unfractionated heparin SQ
[2016-08-08] MEDS: METHYLPREDNISOLONE IV 500 MG in DEXTROSE 5% 250ML 250 ML IV SCH (09:57)
--- NOTE | 2016-08-08 12:01 | Discharge Summary ---
Discharge Summary Date of Service Aug 08, 2016. 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 Consultations: Neurology Medication Reconciliation New Medications: Aripiprazole (Abilify) 10 Mg Tab 20 MG PO DAILY for 30 Days, #30 TAB [place] Carbonate ([place] Carbonate ER) 450 Mg Tabcr 450 MG PO QAM for 30 Days, #30 Nitrofurantoin Monohyd Macrocr (Nitrofurantoin Monohydrat) 100 Mg Cap 100 MG PO BID for 7 Days, #14 CAP Topiramate (Topiramate) 25 Mg Tab 25 MG PO QPM for 30 Days, #30 TAB Continued Medications: Acetaminophen (Acetaminophen Extra Stren) 500 Mg Tab 500-1000 MG PO Q6H PRN for Pain Albuterol Hfa (Ventolin Hfa) 200 Puffs/67145 Mcg Aers 2 PUFFS INH Q4 PRN for Shortness of Breath, #1 INHALER 0 Refills Cholecalciferol (Vitamin D) 2,000 Unit Cap 2000 INTER.UNIT PO LUNCH Clonazepam (Klonopin) 0.5 Mg Tab 0.5 MG PO BID, TAB Cyanocobalamin (Vitamin B-12) 500 Mcg Tab 1 TAB PO LUNCH Docusate Sodium (Dulcolax Stool Softener) 100 Mg Cap 100 MG PO BID for 30 Days Eletriptan Hydrobromide (Relpax) 20 Mg Tab 20 MG PO UD PRN for Migraine TAKE 1 TABLET AT ONSET OF MIGRAINE, MAY REPEAT ONCE AFTER 2 HOURS. MAXIMUM 2 DOSES/24 HOURS. Ferrous Sulfate (Kp Ferrous Sulfate) 325 Mg Tab 1 TAB PO BIDM for 30 Days, #60 TAB 3 Refills Fluconazole (Diflucan) 100 Mg Tab 100 MG PO DAILY, TAB Fluticasone Prop/Salmeterol (Advair Diskus 500/50 60 Dose) 1 Ea Aerp 1 PUFF INH BID, INHALER Gabapentin (Gabapentin) 300 Mg Cap 300 MG PO TID Hydrocodone/Acetaminophen 5MG/325MG (Coggon 5MG/325MG) Tab 1 TABLET PO Q4 PRN for Pain, #10 TAB Hydroxyzine HCl (Hydroxyzine Pamoate) 25 Mg Tab 25 MG PO Q8 PRN for Anxiety Hydroxyzine Hcl (Atarax) 25 Mg Tab 25 MG PO QD@1200, TAB Hyoscyamine Sulfate (Levsin) 0.125 Mg Tab 0.125 MG PO QID Ketorolac Tromethamine (Ketorolac Tromethamine) 10 Mg Tab 10-20 MG PO UD PRN for Headache TAKE 1 TO 2 TABLETS TWICE A DAY NEEDED FOR HEADACHE/SEVERE PAIN, MAXIMUM 2 DOSES 3 DAYS PER WEEK Levothyroxine Sodium (Bulk) (Levothyroxine Sodium) 1 Pow Pow 25 MCG PO QAM for 30 Days, #30 TAB Linaclotide (Linzess) 290 Mcg Cap 290 MCG PO QAM 30 MINUTES BEFORE BREAKFAST [place] Carbonate ([place] Carbonate) 300 Mg Tab 600 MG PO HS, #1 TAB Magnesium Citrate (Magnesium Citrate) 1.745 Gm/30 Ml Imani 296 ML PO DAILY PRN for Constipation, #296 ML Magnesium Hydroxide (Milk of Magnesia) 30 Ml Susp 30 ML PO Q6H PRN for Constipation for 30 Days Meclizine HCl (Meclizine HCl) 25 Mg Tab 25 MG PO Q8 PRN for Dizziness or Vertigo Miconazole Nitrate (Desenex Shake Powder) 43 Appln/43 Gm Powd 1 APPLN EXT UD PRN for Affected Skin Folds for 30 Days Multiple Vitamin (Multivitamin) 1 Tab Tab 1 TAB PO DAILY, TAB Nortriptyline Hcl (Pamelor) 75 Mg Cap 100 MG PO HS, CAP TAKE THIS MEDICATION 2 TO 3 HOURS BEFORE BEDTIME Nystatin (Topical) (Nystatin) 100,000 Unit/Gm Oin 1 APPLN TOP UD PRN for Yeast Outbreaks, GM Ondansetron (Ondansetron HCl) 4 Mg Tab 4 MG PO DAILY PRN for Nausea Pantoprazole (Pantoprazole Sodium) 40 Mg Tab 40 MG PO QAM Polyethylene (Miralax) 17 Gm Pow 17 GM PO BID for 30 Days Ranitidine (Zantac) 150 Mg Tab 150 MG PO HS, TAB Sennosides (Senna Lax) 8.6 Mg Tab 8.6 MG PO DAILY for 30 Days Tramadol (Ultram) 50 Mg Tab 50 MG PO Q4H PRN for Pain, TAB Wound Dressings (Hydrofera Blue Foam Dress) 1 Pad Pad 1 APPLN TOP DAILY 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 Discharge Exam Review of Systems: Constitutional: + fatigue, No chills, No fever Eyes: No eye pain, No worsening of vision Respiratory: No cough, No dyspnea at rest, No dyspnea on exertion, No sputum Cardiovascular: No chest pain, No orthopnea Abdomen: No nausea, No pain, No vomiting Musculoskeletal: No joint pain, No muscle pain, No swelling Genitourinary - Female: No dysuria, No urinary frequency, No urinary urgency Neurologic: No paralysis, No weakness Psychiatric: No anhedonism, No depression symptoms Physical Exam: General Appearance: WD/WN, + mild distress Eyes: PERRL, EOMI Neck: supple, no adenopathy Respiratory/Chest: chest non-tender, lungs clear Cardiovascular: no edema, no gallop Abdomen / GI: non tender, soft Neurologic/Psychiatric: alert, oriented x 3 Hospital Course 1. Acute intractable headache - initial CT head w/o contrast neg for acute etiology - neurology consulted, appreciate input started on solu-medrol/phenergan/ depakote - No improvement in pain, would need to be transferred to [facility] for further mgt of her headache and evaluation of her shunt - If r/o shunt pathology will send back to [facility] for pain management 2. Yeast in the urine, ?UTI - was started on macrobid outpatient and was to continue until Monday - on prophylactic fluconazole? daily - f/u UA 3. Constipation - will institute aggressive bowel regimen and prn meds 4. Bipolar - recent admit with suicidal ideation - cont home meds - Clonazepam, Abilify 5. SOB - CXR with no e/o pneumonia - IS for atelectasis - prn nebs dvt ppx Total Time Spent: Greater than 30 minutes This includes examination of the patient, discharge planning, medication reconciliation, and communication with other providers. Discharge Instructions Please refer to the electronic Patient Visit Report (Discharge Instructions) for additional information. Additional Copies To Darvin Lea D.O.Int.Med.
[2016-09-02] MEDS ORDERED: CLC/300 PO (07:49)
[2016-09-23] MEDS ORDERED: ARIP30TA3 PO (10:28)
[2016-09-23] MEDS ORDERED: INDO-22 PO (10:28)
[2016-09-23] MEDS ORDERED: TOPI50TA16 PO (10:28)
[2016-09-26] MEDS ORDERED: ERTA1INJ IV (15:06)
[2016-10-26] MEDS ORDERED: [UNRECOGNIZED DRUG - CODE] IV (15:52)
[2016-10-26] MEDS ORDERED: MCRK20 PO (16:06)
[2016-11-17] MEDS ORDERED: BND25 PO (14:33)
[2016-11-18] MEDS ORDERED: CPR500 PO (10:36)
[2016-11-18] MEDS ORDERED: XRL10 PO (10:36)
[2016-12-28] MEDS ORDERED: DFL100 PO (10:32)
[2017-01-11] MEDS ORDERED: LEVO25TA5 PO (13:23)
[2017-01-11] MEDS ORDERED: BENZ100C84 PO (16:58)
[2017-01-11] MEDS ORDERED: XPNINS NEB (17:08)
[2017-01-14] MEDS ORDERED: [UNRECOGNIZED DRUG - CODE] IART (10:53)
[2017-01-14] MEDS ORDERED: RIVA1.5T PO (12:41)
[2017-02-10] MEDS ORDERED: ADVIN50/60 INH (13:04)
[2017-02-10] MEDS ORDERED: CHOL200010 PO (13:04)
[2017-02-10] MEDS ORDERED: NRT/25 PO (13:23)
[2017-02-10] MEDS ORDERED: WOUN1PAD EXT (13:52)
[2017-02-10] MEDS ORDERED: MGRSP NAE (13:52)
[2017-02-10] MEDS ORDERED: MECL1TAB42 PO (13:52)
[2017-02-10] MEDS ORDERED: VTMB12 PO (15:08)
[2017-02-10] MEDS ORDERED: PRT/40 PO (16:40)
[2017-02-10] MEDS ORDERED: LINA1CAP2 PO (16:40)
[2017-02-10] MEDS ORDERED: HYOS1TAB PO (16:40)
[2017-02-10] MEDS ORDERED: GABA1CAP4 PO (16:40)
[2017-02-10] MEDS ORDERED: INDO1CAP34 PO (16:58)
[2017-02-10] MEDS ORDERED: SNG10 PO (16:58)
[2017-02-10] MEDS ORDERED: RSP1 PO (16:58)
[2017-02-10] MEDS ORDERED: LITH1TAB PO (16:58)
[2017-02-10] MEDS ORDERED: FERR325T PO (17:26)
[2017-02-10] MEDS ORDERED: ONDA4TAB10 SL (17:26)
[2017-02-10] MEDS ORDERED: ULT50 PO (17:26)
[2017-02-10] MEDS ORDERED: CLON0.5T3 PO (17:27)
[2017-02-10] MEDS ORDERED: SENN8.6T13 PO (17:28)
[2017-02-10] MEDS ORDERED: DOCU-105 PO (17:35)
[2017-02-10] MEDS ORDERED: MULTTAB58 PO (18:07)
[2017-02-10] MEDS ORDERED: LEVO50TA6 PO (18:32)
[2017-02-10] MEDS ORDERED: NORT75CA PO (18:38)
[2017-02-10] MEDS ORDERED: VST25HP PO (18:40)
[2017-02-10] MEDS ORDERED: [UNRECOGNIZED DRUG - CODE] PO (19:25)
[2017-02-10] MEDS ORDERED: MISCCAP80 PO (20:28)
[2017-02-10] MEDS ORDERED: NYST100010 TOP (20:28)
[2017-02-10] MEDS ORDERED: TOPI1CAP3 PO (20:28)
[2017-02-10] MEDS ORDERED: LITH600C PO (22:29)
[2017-02-10] MEDS ORDERED: CGN1X PO (22:29)
[2017-02-10] MEDS ORDERED: ALBU18002 INH (22:29)
[2017-02-14] MEDS ORDERED: MTRG45 TOP (15:35)
[2017-02-14] MEDS ORDERED: XRL20 PO (15:35)
[2017-02-14] MEDS ORDERED: [UNRECOGNIZED DRUG - CODE] IV (15:35)
[2017-02-14] MEDS ORDERED: PRT/40 PO (15:35)
[2017-02-14] MEDS ORDERED: POTA10CA28 PO (16:29)
[2017-02-14] MEDS ORDERED: MGNO400 PO (16:29)
[2017-03-09] MEDS ORDERED: TOBRAMYCIN PO (12:59)
[2017-03-09] MEDS ORDERED: DOXYCYLINE PO (12:59)
== END 2016-08-08 12:00 | disposition short-term general hospital (02) | DRG 103 ==
LOC: ENRESERVDT → ENRESERVTM → C.EDB 15:52 → C.MSN 22:37
PROVIDERS: ADMIT Internal Medicine; ATTEND Internal Medicine
DX: G43.919 Migraine, unspecified, intractable, without status migrainosus (principal); B37.41 Candidal cystitis and urethritis; L97.919 Non-pressure chronic ulcer of unspecified part of right lower leg with unspecified severity; Q05.4 Unspecified spina bifida with hydrocephalus; Z98.2 Presence of cerebrospinal fluid drainage device; H53.2 Diplopia; K59.00 Constipation, unspecified; F31.9 Bipolar disorder, unspecified; Z96.0 Presence of urogenital implants; Z89.511 Acquired absence of right leg below knee; Z89.512 Acquired absence of left leg below knee; Z86.14 Personal history of Methicillin resistant Staphylococcus aureus infection; Z79.51 Long term (current) use of inhaled steroids; Z79.891 Long term (current) use of opiate analgesic; Z79.899 Other long term (current) drug therapy

== ENCOUNTER 2016-08-27 12:24 | Emergency (ER) | payer BC, OTHER ==
[~2016-08-27 12:24] MED LIST changes: +ABL10 PO; -ARIP20TA4 PO; +FLUC100T4 PO; -LITH1TAB PO; +LTHSR450 PO; +MCRB100 PO; -MCRB100HP PO; +TPM25 PO
[2016-08-27 12:27] VITALS: TEMP 36.6; Ht 119.4 cm
[2016-08-27] MEDS ORDERED: SODIUM CHLORIDE 0.9% 1000ML 1,000 ML IV STA (12:44)
[2016-08-27] MEDS ORDERED: KETOROLAC TROMETHAMINE 30 MG/ML VIAL IV STA ×2 (12:44→17:37)
[2016-08-27] MEDS ORDERED: DiphenhydrAMINE HCL 50 MG/ML VIAL IV STA (12:44)
[2016-08-27] MEDS ORDERED: PROCHLORPERAZINE 5 MG/ML 2 ML VIAL IV STA (12:44)
[2016-08-27] MEDS ORDERED: DEXAMETHASONE SOD INJ 10 MG/ML VIAL IV ONE (12:45)
--- NOTE | 2016-08-27 13:12 | EMERGENCY ROOM VISIT NOTE ---
History Report prepared by James: Lena Bansal Under the Supervision of: Dr. Himanshu Chery M.D. 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 The patient currently rates the pain at a 9/10 in severity. The patient states that she has a shunt in place and states she had it evaluated by her [place] neurologist and had the pressures check without problem a few weeks ago. The patient states her headache feels similar to headaches she has had in the past. She states nothing makes the headache worse or better and that movement does not worsen the headache. The patient states the pain radiates all over her head. The patient states she took a tramadol for the pain but it did not improve. The patient denies any nausea or vomiting. 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 A total of 10 systems reviewed and were otherwise negative. Past Medical & Surgical Medical Problems: (1) Allergic reaction caused by a drug (2) Anxiety (3) Bipolar 1 disorder (4) Depression (5) Gastroparesis (6) GERD (gastroesophageal reflux disease) (7) Hydrocephalus (8) Intractable headache (9) Migraines (10) MRSA (methicillin resistant Staphylococcus aureus) (11) Osteomyelitis (12) Shunt placement with revision x8 (13) Spina bifida (14) UTI (urinary tract infection) Surgical Problems: (1) S/P BKA (below knee amputation) bilateral Family History Cancer Diabetes mellitus Lung disease Social History Smoking Status: Never Smoker Alcohol Use: none Drug Use: none Marital Status: single Housing Status: lives with family Occupation Status: disabled Current/Historical Medications Scheduled Aripiprazole (Abilify), 20 MG PO DAILY Cholecalciferol (Vitamin D), 2,000 INTER.UNIT PO LUNCH Clonazepam (Klonopin), 0.5 MG PO BID Cyanocobalamin (Vitamin B-12), 1 TAB PO LUNCH Docusate Sodium (Dulcolax Stool Softener), 100 MG PO BID Ferrous Sulfate (Kp Ferrous Sulfate), 1 TAB PO BIDM Fluticasone Prop/Salmeterol (Advair Diskus 500/50 60 Dose), 1 PUFF INH BID Gabapentin (Gabapentin), 300 MG PO TID Hydroxyzine Hcl (Atarax), 25 MG PO QD@1200 Hyoscyamine Sulfate (Levsin), 0.125 MG PO QID Levothyroxine Sodium (Levothyroxine Sodium), 25 MG PO DAILY Linaclotide (Linzess), 290 MCG PO QAM [place] Carbonate ([place] Carbonate), 600 MG PO HS [place] Carbonate ([place] Carbonate ER), 450 MG PO QAM Multiple Vitamin (Multivitamin), 1 TAB PO DAILY Nortriptyline Hcl (Pamelor), 75 MG PO HS Nortriptyline Hcl (Pamelor), 25 MG PO HS Pantoprazole (Pantoprazole Sodium), 40 MG PO QAM Polyethylene (Miralax), 17 GM PO BID Ranitidine (Zantac), 150 MG PO HS Sennosides (Senna Lax), 8.6 MG PO DAILY Topiramate (Topiramate), 25 MG PO QPM Wound Dressings (Hydrofera Blue Foam Dress), 1 APPLN TOP DAILY Scheduled PRN Acetaminophen (Acetaminophen Extra Stren), 500-1,000 MG PO Q6H PRN for Pain Albuterol Hfa (Ventolin Hfa), 2 PUFFS INH Q4 PRN for Shortness of Breath Eletriptan Hydrobromide (Relpax), 20 MG PO UD PRN for Migraine Hydrocodone/Acetaminophen 5MG/325MG (Pax 5MG/325MG), 1 TABLET PO Q4 PRN for Pain Hydroxyzine HCl (Hydroxyzine Pamoate), 25 MG PO Q8 PRN for Anxiety Ketorolac Tromethamine (Ketorolac Tromethamine), 10-20 MG PO UD PRN for Headache Magnesium Citrate (Magnesium Citrate), 296 ML PO DAILY PRN for Constipation Magnesium Hydroxide (Milk of Magnesia), 30 ML PO Q6H PRN for Constipation Meclizine HCl (Meclizine HCl), 25 MG PO Q8 PRN for Dizziness or Vertigo Ondansetron (Ondansetron HCl), 4 MG PO DAILY PRN for Nausea Tramadol (Ultram), 50 MG PO Q4H PRN for Pain Allergies Coded Allergies: Adhesives (Verified Allergy, Intermediate, TAPE- HIVES, 08/05/16) Ceftriaxone (Verified Allergy, Intermediate, rash, 08/05/16) Chlorhexidine (Verified Allergy, Intermediate, RASH, 08/05/16) Ciprofloxacin (Verified Allergy, Intermediate, hives, 08/27/16) Latex (Verified Allergy, Intermediate, hives, 08/05/16) Levofloxacin (Verified Allergy, Intermediate, rash, 08/05/16) Linezolid (Verified Allergy, Intermediate, rash, 08/05/16) Piperacillin (Verified Allergy, Intermediate, SEVERE RASH, HIVES, 08/05/16) Tazobactam (Verified Allergy, Intermediate, SEVERE RASH, HIVES, 08/05/16) Vancomycin (Verified Allergy, Intermediate, rash, 08/05/16) Tobramycin (Verified Allergy, Mild, MILD RASH ON ARM, RED FACE, 08/05/16) IMPROVED AFTER BENADRYL, TAKING REST OF DOSE Amikacin (Verified Allergy, Unknown, PER DR ROBINS,RXN WAS TO ZOSYN NOT AMKrash;hives, 08/05/16) Sulfamethoxazole w/Trimethoprim (Verified Allergy, Unknown, Hives, 08/27/16 ) Can be pretreated with 10mg Zytrec 45 min prior to admin Physical Exam Vital Signs Date Time Temp Pulse Resp B/P Pulse Ox O2 Delivery O2 Flow Rate FiO2 08/27/16 19:23 79 18 113/73 96 08/27/16 17:58 84 16 109/77 92 Room Air 08/27/16 16:47 89 18 124/98 93 Room Air 08/27/16 15:08 66 144/79 99 Room Air 08/27/16 12:27 36.6 85 18 141/76 93 Room Air Physical Exam GENERAL: Patient is a healthy-appearing well-nourished HEAD: Normocephalic atraumatic EYES: Ocular movements intact pupils equal and react to light OROPHARYNX mucous membranes are moist no exudates present no erythema or edema present NECK: Supple no nuchal rigidity, no evidence of meningitis or encephalitis. CHEST: Good equal expansion LUNGS: Clear and equal to auscultation CARDIAC: Normal S1 and S2 ABDOMEN: Soft nontender no guarding BACK: No CVA tenderness EXTREMITIES: No pain upon palpation normal muscle strength in all groups no clubbing cyanosis or edema. Below the knee amputation bilaterally. NEURO: Patient is following commands is answering questions appropriately. Alert and oriented x3 Cranial Nerves 2-12 grossly intact Medical Decision & Procedures Laboratory Results 08/27/16 13:40 Red Blood Count 4.02, Mean Corpuscular Volume 95.5, Mean Corpuscular Hemoglobin 31.3, Mean Corpuscular Hemoglobin Concent 32.8, Mean Platelet Volume 10.2, Neutrophils (%) (Auto) 71.7, Lymphocytes (%) (Auto) 17.9, Monocytes (%) (Auto) 6.9, Eosinophils (%) (Auto) 2.9, Basophils (%) (Auto) 0.3, Neutrophils # (Auto) 9.53, Lymphocytes # (Auto) 2.38, Monocytes # (Auto) 0.92, Eosinophils # (Auto) 0.38, Basophils # (Auto) 0.04 08/27/16 13:40 Test 08/27/16 00:00 08/27/16 13:40 Urine Color YELLOW Urine Appearance CLOUDY (CLEAR) Urine pH 6.5 (4.5-7.5) Urine Specific [place] 1.007 (1.000-1.030) Urine Protein NEG (NEG) Urine Glucose (UA) NEG (NEG) Urine Ketones NEG (NEG) Urine Occult Blood 1+ (NEG) Urine Nitrite NEG (NEG) Urine Bilirubin NEG (NEG) Urine Urobilinogen NEG (NEG) Urine Leukocyte Esterase LARGE (NEG) Urine WBC (Auto) >30 /hpf (0-5) Urine RBC (Auto) 0-4 /hpf (0-4) Urine Hyaline Casts (Auto) 1-5 /lpf (0-5) Urine Epithelial Cells (Auto) >30 /lpf (0-5) Urine Bacteria (Auto) 4+ (NEG) White Blood Count 13.29 K/uL (4.8-10.8) Red Blood Count 4.02 M/uL (4.2-5.4) Hemoglobin 12.6 g/dL (12.0-16.0) Hematocrit 38.4 % (37-47) Mean Corpuscular Volume 95.5 fL (80-100) Mean Corpuscular Hemoglobin 31.3 pg (25-34) Mean Corpuscular Hemoglobin Concent 32.8 g/dl (32-36) Platelet Count 242 K/uL (130-400) Mean Platelet Volume 10.2 fL (7.4-10.4) Neutrophils (%) (Auto) 71.7 % Lymphocytes (%) (Auto) 17.9 % Monocytes (%) (Auto) 6.9 % Eosinophils (%) (Auto) 2.9 % Basophils (%) (Auto) 0.3 % Neutrophils # (Auto) 9.53 K/uL (1.4-6.5) Lymphocytes # (Auto) 2.38 K/uL (1.2-3.4) Monocytes # (Auto) 0.92 K/uL (0.11-0.59) Eosinophils # (Auto) 0.38 K/uL (0-0.5) Basophils # (Auto) 0.04 K/uL (0-0.2) RDW Standard Deviation 54.2 fL (36.4-46.3) RDW Coefficient of Variation 15.5 % (11.5-14.5) Immature Granulocyte % (Auto) 0.3 % Immature Granulocyte # (Auto) 0.04 K/uL (0.00-0.02) Anion Gap 6.0 mmol/L (3-11) Estimated GFR () 147.8 Estimated GFR (Non- 127.5 BUN/Creatinine Ratio 26.9 (10-20) Calcium Level 8.7 mg/dl (8.5-10.1) Total Bilirubin 0.4 mg/dl (0.2-1) Direct Bilirubin 0.1 mg/dl (0-0.2) Aspartate Amino Transf (AST/SGOT) 8 U/L (15-37) Alanine Aminotransferase (ALT/SGPT) 22 U/L (12-78) Alkaline Phosphatase 89 U/L (45-117) Total Protein 6.9 gm/dl (6.4-8.2) Albumin 3.1 gm/dl (3.4-5.0) Lipase 88 U/L (73-393) [place] Level 1.1 mMOL/L (0.6-1.2) Labs reviewed by ED physician. Medications Administered Medications (Trade) Dose Ordered Sig/Brenna Route Start Time Stop Time Status Last Admin Dose Admin Sodium Chloride (Nss 1000ml) 1,000 ml @ 999 mls/hr Q1H1M STAT IV 08/27/16 12:44 08/27/16 13:44 DC 08/27/16 12:44 999 MLS/HR Ketorolac Tromethamine (Toradol Inj) 30 mg NOW STAT IV 08/27/16 12:44 08/27/16 12:49 DC 08/27/16 13:42 30 MG Diphenhydramine HCl (Benadryl Inj) 50 mg NOW STAT IV 08/27/16 12:44 08/27/16 12:49 DC 08/27/16 13:41 50 MG Prochlorperazine Edisylate (Compazine Inj) 10 mg NOW STAT IV 08/27/16 12:44 08/27/16 12:49 DC 08/27/16 13:42 10 MG Dexamethasone Sodium Phosphate (Decadron Inj) 10 mg NOW ONCE IV 08/27/16 12:45 08/27/16 12:49 DC 08/27/16 13:41 10 MG Hydromorphone HCl (Dilaudid Inj) 1 mg NOW STAT IV 08/27/16 14:15 08/27/16 14:16 DC 08/27/16 14:42 1 MG Magnesium Sulfate 1 gm 1 gm NOW STAT IV 08/27/16 14:15 08/27/16 14:16 DC 08/27/16 14:34 1 GM Promethazine HCl/ Sodium Chloride (Phenergan Inj/ Nss 50ml) 51 ml @ 204 mls/hr NOW STAT IV 08/27/16 14:19 08/27/16 14:33 DC 08/27/16 14:33 204 MLS/HR Hydromorphone HCl (Dilaudid Inj) 1 mg NOW STAT IV 08/27/16 14:52 08/27/16 14:54 DC 08/27/16 15:21 1 MG Ondansetron HCl (Zofran Inj) 4 mg NOW STAT IV 08/27/16 14:52 08/27/16 14:54 DC 08/27/16 15:21 4 MG Haloperidol Lactate (Haldol Inj) 5 mg NOW STAT IV 08/27/16 16:16 08/27/16 16:18 DC 08/27/16 16:46 5 MG Benztropine Mesylate (Cogentin Inj) 1 mg NOW STAT IV 08/27/16 16:16 08/27/16 16:18 DC 08/27/16 16:46 1 MG Acetaminophen (Tylenol Tab) 1,000 mg NOW STAT PO 08/27/16 17:37 08/27/16 17:39 DC 08/27/16 18:01 1,000 MG Ketorolac Tromethamine (Toradol Inj) 30 mg NOW STAT IV 08/27/16 17:37 08/27/16 17:39 DC 08/27/16 18:02 30 MG Magnesium Sulfate (Magnesium Sulfate) 1 gm NOW STAT IV 08/27/16 17:39 08/27/16 17:40 DC 08/27/16 18:02 1 GM Heparin Sodium (Porcine) (Heparin 100 Unit/ml 5ml Flush) 5 ml STK-MED ONCE .ROUTE 08/27/16 19:06 08/27/16 19:10 DC 08/27/16 19:06 5 ML ED Course 1241: Past medical records reviewed. The patient was evaluated in room C10. A complete history and physical examination was performed. 1244: Ordered Compazine Inj 10 mg IV, Benadryl Inj 50 mg IV, Toradol Inj, Sodium Chloride 1,000 ml @ 999 mls/hr IV. 1245: Ordered Decadron Inj 10 mg IV. 1415: Ordered Magnesium Sulfate 1 gm IV, Dilaudid Inj 1 mg IV. 1419: Ordered Promethazine HCl 25 mg/Sodium Chloride 51 mg @ 204 mls/hr IV. 1450: I reevaluated the patient and she was hemodynamically stable but states she still has a headache. 1452: Ordered Zofran Inj 4 mg IV, Dilaudid Inj 1 mg IV. 1610: I reevaluated the patient and she states that her pain is still the same and has not yet been resolved. 1616: Ordered Cogentin Inj 1 mg IV, Haldol Inj 5 mg IV. 1735; I reevaluated the patient and she was sleeping soundly. Once i was able to wake her she stated that she was still in the same amount of pain. 1737: Ordered Toradol Inj 30 mg IV, Tylenol Tab 1,000 mg PO. 1739: Ordered Magnesium Sulfate 1 gm IV. 1842: Upon reexamination the patient is hemodynamically stable. I discussed results and treatment plan with the patient. She verbalizes agreement and understanding. The patient is ready for discharge. Medical Decision Prior records/ancillary studies reviewed. Additional history obtained from father. Triage Nursing notes reviewed. The patient's history was concerning for headache. Differential diagnosis: Etiologies such as migraine headache, meningitis, sinusitis, CO exposure, ICH, SAH, infection, tumor, headache, sinus thrombosis, arterial dissection, as well as others were entertained. Physical examination findings: As above. Non-focal. This is a 31-year-old female who presents emergency department complaining of a headache. The patient reports she has had a headache in the past and feels that this is not related to her shunt. The patient has followed up with her [facility] neurosurgeon for headaches like this in the past and does not believe that this is being caused by her shunt. She does have a slight elevation in her white blood count however has no evidence of meningitis encephalitis on examination. The patient's ports was accessed and the patient was given IV Toradol, Compazine, Benadryl, Decadron. In addition the patient was also given Dilaudid 2, Haldol, Cogentin. The patient was observed for a large period of time in the emergency department as she reports no improvement in her headache symptoms however she is asleep on multiple reexaminations. The patient was then given an additional dose of Toradol as well as Tylenol and given magnesium. After sometime the patient wished to go home. I do believe the patient does not have any evidence of meningitis encephalitis I stressed the need for follow-up with pain management with [place]. Patient and mother were in agreement with the treatment plan. Impression Primary Impression: Headache Scribe Attestation The scribe's documentation has been prepared under my direction and personally reviewed by me in its entirety. I confirm that the note above accurately reflects all work, treatment, procedures, and medical decision making performed by me. Departure Information Dispostion Home / Self-Care Referrals Darvin Lea D.O.Int.Med. (PCP) Forms HOME CARE DOCUMENTATION FORM, IMPORTANT VISIT INFORMATION Patient Instructions My [facility] Additional Instructions You have been examined and treated today on an emergency basis only. This is not a substitute for, or an effort to provide, complete comprehensive medical care. It is impossible to recognize and treat all injuries or illnesses in a single emergency department visit. It is therefore important that you follow up closely with Dr Lea. Call as soon as possible for an appointment. Thank you for your time and consideration. I look forward to speaking with you again soon. Please don't hesitate to call us if you have any questions. Problem Qualifiers Primary Impression: Headache Headache type: tension-type Headache chronicity pattern: acute headache Intractability: intractable Qualified Codes: G44.201 - Tension-type headache , unspecified, intractable
[2016-08-27 13:52] LABS: BASO % 0.3 %; BASO ABS # 0.04 K/uL (0-0.2); COMPLETE YES; EOS % 2.9 %; HEMATOCRIT 38.4 % (37-47); IG% 0.3 %; LYMPH % 17.9 %; LYMPH ABS # 2.38 K/uL (1.2-3.4); MEAN CELL VOLUME 95.5 fL (80-100); MEAN CORPUSCULAR HEMOGLOBIN 31.3 pg (25-34); MEAN CORPUSCULAR HGB CONC 32.8 g/dl (32-36); MEAN PLATELET VOLUME 10.2 fL (7.4-10.4); MONO % 6.9 %; NEUT % 71.7 %; PLATELET COUNT 242 K/uL (130-400); RED BLOOD COUNT 4.02 M/uL (4.2-5.4); WHITE BLOOD COUNT 13.29 K/uL (4.8-10.8)
[2016-08-27 14:12] LABS: ALT/SGPT 22 U/L (12-78); AST/SGOT 8 U/L (15-37); BLOOD UREA NITROGEN 15 mg/dl (7-18); BUN/CREATININE RATIO 26.9 (10-20); CALCIUM 8.7 mg/dl (8.5-10.1); CARBON DIOXIDE 27 mmol/L (21-32); CHLORIDE 109 mmol/L (98-107); CREATININE 0.54 mg/dl (0.60-1.20); GLUCOSE 86 mg/dl (70-99); POTASSIUM 3.7 mmol/L (3.5-5.1); SODIUM 142 mmol/L (136-145)
[2016-08-27 14:14] LABS: ALKALINE PHOSPHATASE 89 U/L (45-117)
[2016-08-27] MEDS ORDERED: HYDROmorphone INJ 1 MG/ML SYR IV STA ×2 (14:15→14:52)
[2016-08-27] MEDS ORDERED: MAGNESIUM SULFATE 1GM / D5W 1 GM BAG IV STA ×2 (14:15→17:39)
[2016-08-27] MEDS ORDERED: PROMETHAZINE HCL INJ 25 MG in SODIUM CHLORIDE 0.9% 50ML 50 ML IV STA (14:19)
[2016-08-27] MEDS ORDERED: ONDANSETRON INJ 2 MG/ML 2 ML VIAL IV STA (14:52)
[2016-08-27] MEDS ORDERED: BENZTROPINE MESYLATE 1 MG/ML 2 ML AMP IV STA (16:16)
[2016-08-27] MEDS ORDERED: HALOPERIDOL LACTATE 5 MG/ML 1 ML VIAL IV STA (16:16)
[2016-08-27 17:09] LABS: URINE APPEARANCE CLOUDY (CLEAR); URINE BILIRUBIN NEG (NEG); URINE COLOR YELLOW; URINE EPITHELIAL CELL AUTO >30 /lpf (0-5); URINE NITRITE NEG (NEG); URINE PH 6.5 (4.5-7.5); URINE SPECIFIC GRAVITY 1.007 (1.000-1.030); UROBILINOGEN NEG (NEG)
[2016-08-27 17:13] LABS: MANUAL MICROSCOPIC REQUIRED? NO; REVIEW REQ? NO
[2016-08-27] MEDS ORDERED: ACETAMINOPHEN 500 MG TAB PO STA (17:37)
[2016-08-27 19:23] VITALS: BP 113/73; PULSE 79; O2SAT 96
[2016-09-02] MEDS ORDERED: CLC/300 PO (07:49)
[2016-09-23] MEDS ORDERED: INDO-22 PO (10:28)
[2016-09-23] MEDS ORDERED: TOPI50TA16 PO (10:28)
[2016-09-23] MEDS ORDERED: ARIP30TA3 PO (10:28)
[2016-09-26] MEDS ORDERED: ERTA1INJ IV (15:06)
[2016-10-26] MEDS ORDERED: [UNRECOGNIZED DRUG - CODE] IV (15:52)
[2016-10-26] MEDS ORDERED: MCRK20 PO (16:06)
[2016-11-17] MEDS ORDERED: BND25 PO (14:33)
[2016-11-18] MEDS ORDERED: XRL10 PO (10:36)
[2016-11-18] MEDS ORDERED: CPR500 PO (10:36)
[2016-12-28] MEDS ORDERED: DFL100 PO (10:32)
[2017-01-11] MEDS ORDERED: LEVO25TA5 PO (13:23)
[2017-01-11] MEDS ORDERED: BENZ100C84 PO (16:58)
[2017-01-11] MEDS ORDERED: XPNINS NEB (17:08)
[2017-01-14] MEDS ORDERED: [UNRECOGNIZED DRUG - CODE] IART (10:53)
[2017-01-14] MEDS ORDERED: RIVA1.5T PO (12:41)
[2017-02-10] MEDS ORDERED: CHOL200010 PO (13:04)
[2017-02-10] MEDS ORDERED: ADVIN50/60 INH (13:04)
[2017-02-10] MEDS ORDERED: NRT/25 PO (13:23)
[2017-02-10] MEDS ORDERED: MGRSP NAE (13:52)
[2017-02-10] MEDS ORDERED: WOUN1PAD EXT (13:52)
[2017-02-10] MEDS ORDERED: MECL1TAB42 PO (13:52)
[2017-02-10] MEDS ORDERED: VTMB12 PO (15:08)
[2017-02-10] MEDS ORDERED: LINA1CAP2 PO (16:40)
[2017-02-10] MEDS ORDERED: HYOS1TAB PO (16:40)
[2017-02-10] MEDS ORDERED: PRT/40 PO (16:40)
[2017-02-10] MEDS ORDERED: GABA1CAP4 PO (16:40)
[2017-02-10] MEDS ORDERED: SNG10 PO (16:58)
[2017-02-10] MEDS ORDERED: LITH1TAB PO (16:58)
[2017-02-10] MEDS ORDERED: INDO1CAP34 PO (16:58)
[2017-02-10] MEDS ORDERED: RSP1 PO (16:58)
[2017-02-10] MEDS ORDERED: ONDA4TAB10 SL (17:26)
[2017-02-10] MEDS ORDERED: FERR325T PO (17:26)
[2017-02-10] MEDS ORDERED: ULT50 PO (17:26)
[2017-02-10] MEDS ORDERED: CLON0.5T3 PO (17:27)
[2017-02-10] MEDS ORDERED: SENN8.6T13 PO (17:28)
[2017-02-10] MEDS ORDERED: DOCU-105 PO (17:35)
[2017-02-10] MEDS ORDERED: MULTTAB58 PO (18:07)
[2017-02-10] MEDS ORDERED: LEVO50TA6 PO (18:32)
[2017-02-10] MEDS ORDERED: NORT75CA PO (18:38)
[2017-02-10] MEDS ORDERED: VST25HP PO (18:40)
[2017-02-10] MEDS ORDERED: [UNRECOGNIZED DRUG - CODE] PO (19:25)
[2017-02-10] MEDS ORDERED: TOPI1CAP3 PO (20:28)
[2017-02-10] MEDS ORDERED: MISCCAP80 PO (20:28)
[2017-02-10] MEDS ORDERED: NYST100010 TOP (20:28)
[2017-02-10] MEDS ORDERED: ALBU18002 INH (22:29)
[2017-02-10] MEDS ORDERED: CGN1X PO (22:29)
[2017-02-10] MEDS ORDERED: LITH600C PO (22:29)
[2017-02-14] MEDS ORDERED: [UNRECOGNIZED DRUG - CODE] IV (15:35)
[2017-02-14] MEDS ORDERED: XRL20 PO (15:35)
[2017-02-14] MEDS ORDERED: PRT/40 PO (15:35)
[2017-02-14] MEDS ORDERED: MTRG45 TOP (15:35)
[2017-02-14] MEDS ORDERED: MGNO400 PO (16:29)
[2017-02-14] MEDS ORDERED: POTA10CA28 PO (16:29)
== END 2016-08-27 19:24 | disposition home or self-care (01) ==
LOC: C.EDB 12:25 → C.EDC 19:24
DX: G44.201 Tension-type headache, unspecified, intractable (principal); F31.9 Bipolar disorder, unspecified; F41.9 Anxiety disorder, unspecified; K21.9 Gastro-esophageal reflux disease without esophagitis; Z87.440 Personal history of urinary (tract) infections; Z86.14 Personal history of Methicillin resistant Staphylococcus aureus infection; Z89.512 Acquired absence of left leg below knee; Z89.511 Acquired absence of right leg below knee; Z98.890 Other specified postprocedural states; Z79.899 Other long term (current) drug therapy

== ENCOUNTER → 2016-09-05 | Outpatient (CLI) | payer BC, OTHER ==
[~2016-09-05] MED LIST changes: +ADVIN50/60 INH; +ALBU18002 INH; +ARIP1TAB PO; +ARIP30TA3 PO; +ATR25 PO; +BENZ-88 PO; +BENZ100C7 PO; +BENZ100C84 PO; +BUSP5TAB59 PO; +CEFE2INJ2; +CHOL200010 PO; +CLC/300 PO; +CLON0.5T3 PO; +CPR500 PO; +DAPT500I IV; +DFL100 PO; +DIPH25CA5 PO; +DOCU100C31 PO; +DOXYCYLINE PO; +ERTA1INJ IV; +FERR1TAB62 PO; +GABA1CAP4 PO; +GENTAMYCIN PO; +GUAI1TAB68 PO; +HYDR-3124 PO; +HYOS1TAB PO; +INDO-22 PO; +INDO1CAP34 PO; +LEVO25TA5 PO; +LEVO50TA6 PO; +LEVO75TA PO; -LEVOPOW36 PO; +LINA1CAP2 PO; +LITH1TAB PO; +LITH600C PO; -MCRB100 PO; +MCRK20 PO; -MCTP EXT; +MECL1TAB42 PO; +METR-162 PO; +METR0.7527 TOP; +MGNO400 PO; +MGRSP NAE; +MICO1POW8 TOP; +MISCCAP80 PO; +MTRCR45 TP; +MTRG45 TOP; +MULTTAB58 PO; +NITR-5 PO; +NORE-38 PO; +NORE-39 PO; +NORT75CA PO; +NRT/25 PO; +NYST100010 TOP; -NYST80OI TOP; +NYSTCRE11; +ONDA4TAB10 SL; +OXYC-57 PO; +PANT40TA PO; +PANT40TA2 PO; +POTA10CA28 PO; +PROB1TAB16 PO; +RISP1TAB3 PO; +RISP1TAB68 PO; +RIVA1.5T PO; +RIVA1TAB4 PO; +RSP1 PO; +RXC5 PO; +SENN1TAB80 PO; -SENN8.6T13 PO; +SNG10 PO; +TOBRAMYCIN PO; +TOPI1CAP12 PO; +TOPI1CAP3 PO; +TOPI25TA99 PO; +TOPI50TA16 PO; +ULT50 PO; +VENL37.593 PO; +VTMB12 PO; +WOUN1PAD EXT; +XPNINS NEB; +XRL10 PO; +XRL15 PO; +XRL20 PO; +ZNT/150 PO; +ZOLM1TAB3 PO; +[UNRECOGNIZED DRUG - CODE] IART; +[UNRECOGNIZED DRUG - CODE] IV; +[UNRECOGNIZED DRUG - CODE] IV; +[UNRECOGNIZED DRUG - CODE] IV; +[UNRECOGNIZED DRUG - CODE] IV; +[UNRECOGNIZED DRUG - CODE] PO
== END | disposition home or self-care (01) ==
LOC: C.PAPS 07:49
PROVIDERS: ATTEND Obstetrics & Gynecology
DX: Z12.4 Encounter for screening for malignant neoplasm of cervix (principal)

== ENCOUNTER → 2016-10-03 | Outpatient (CLI) | payer BC, OTHER ==
[~2016-10-03] MED LIST changes: -ABL10 PO; -ANT25 PO; -CLC/300 PO; +MRLP17X PO; +ZFRI4 IV
--- NOTE | 2016-10-04 06:00 | PAP/PSG TECHNICIAN REPORT ---
[facility] Melt Supervisor Polysomnogram Report Study name: None Report date: 10/04/2016 Study date: 10/03/2016 Referring Physician: Thierno jennings M.D. Name: LUCERO CHAIREZ Interpreting Physician: Amish Castaneda D.O. Date of : 1985 Melt Supervisor: Fallon Phillips [facility]. Sex: Female Age: 31 StudyType: PSG Weight: 235 lbs Height: 31 years, Height 3' 11" Neck Circum:17.5inches BMI: 74.79 Medications: Acetaminophen EX 500-1000mg, Advair, Aripiprazole Abilify 20mg, Cholecalcifferrol Vit D 2000iu, Clonazepam .5mg, Diclofenac 50mg, Dihydroergotamine Mesviate nasal spray, ducolax, Ferrous Sulfate 325mg, Gabapentin 300mg, Hydrofera Dressing, Hydroxyzine 25mg, Hyscomine Sulf 0.125mg, Ketorolac, Levothyroxine 25mg, Linzess 290mcg, [place] Walk 600mg and 450mg, Meclizine 25mg, Nortriptyline 25mg, Nystatin Ointment, Zofran 4mg, Protonix 40mg, ProAir HFA, Probiotic, Ranitidine 150mgRizatriptan 10mg, Senna Laxative, Tramadol 50mg Patient History Study started on room air with ETCO2 monitoring in room #8. 31 yr old female here tonight for a diagnostic psg. She has a history of spina bifida, shunted hydrocephalus, schizoaffective disorder, bipolar disorder, anxiety, neurogenic bladder and asthma. She snores and has headaches. She has had both feet amputated. She is in a wheelchair and sleeps slightly elevated in a hospital bed at home. Her ESS=7/21([address]). Neck circ=17.5inches. Parameters Monitored NPSG: E1-M2, E2-M1, Fp1-M2, Fp2-M1, F3-M2, F4-M2, F4-M1, C3-M2, C4-M2, C4-M1, O1-M2, O2-M2, O2-M1, T3-M2, T4-M1, P3-M2, P4-M1, CHIN1, CHIN2, HR, EKG, Legs, PFLOW, SNOR, FLOW, CFLOW, Tidal Volume, THOR, ABDO, SpO2, PLTH, CPRESS, ETCO2 Wave, ETCO2, pH Sleep Architecture Sleep Stages Time at Lights Off 9:06:07 PM STAGES Time (min.) TST (%) Time at Lights On 5:18:37 AM Wake 61.5 -- Total Recording Time (TRT) 492.50 min. N1 18.0 4 Total Sleep Period (TSP) 441.5 min. N2 292.0 68 Total Sleep Time (TST) 431.0min. N3 108.0 25 Awake Time 61.5 min. REM 13.0 3 Wake after Sleep Onset 30.0 min. Sleep Efficiency (SE) 88 % Sleep Onset Latency (IAN) 31.5 min. Number of Stage 1 Shifts None Awakenings 7 Stage Changes 30 Number of REM periods 2 REM 13.0 3 REM Latency 412.0 min. NREM 418.0 97 Body Position Analysis Supine Right Left Side Prone Vertical Total Sleep Time (min.) 150.1 0.0 323.0 323.00 0.0 0.0 Total Sleep Time (%) 25% 0% 75% 75 0% N/A% Total Sleep Time REM (min.) 13.0 0.0 0.0 None 0.0 0.0 Total Sleep Time NREM (min.) 95.0 0.0 323.0 None 0.0 0.0 Intermittent Wake (min.) 42.1 0.0 19.4 None 0.0 0.0 Total Sleep Period (%) 26% None None None None None Arousals Myoclonus (PLM) * Events Count Index Events Count Index Spontaneous 14 2 Events Awake (PLMW) 34 33.2 Respiratory 0 0.0 Events Asleep w/ Arousal (PLMA) 0 0.0 PLM 0 0 Events Asleep w/o Arousal (PLMS) 8 1.1 Snoring 1 0 Total Asleep 8 1.1 Total 15 2 Total 42 5 Respiratory Analysis * CA OA MA CH H RERA Total Count 1 1 0 0 1 0 3 Index 0.1 0.1 0.0 0 0.1 0 0.4 Mean Duration 10.7 10.0 0.0 0.00 12.9 0.0 11.2 Longest Duration 10.7 10.0 0.0 0.00 0.0 0.0 12.9 Respiratory Event Summary Total Supine ~Supine Right Left Prone REM NREM Apneas Count 2 1 1 N/A 1 N/A 0 2 Index 0.3 1 0 N/A 0.2 N/A 0 0 Hypopneas (4% Desat) Count 1 1 0 N/A 0 N/A 0 1 Index 0.1 0.6 0 N/A 0.0 N/A 0.0 0.1 Apneas & All Hypopneas Count 3 2 1 N/A 1 N/A 0 3 Index 0.4 1 0 N/A 0 N/A 0.0 0.4 Respiratory Events ([employer]+All Hyp+RERA) Count 3 2 1 N/A 1 N/A 0 3 Index 0.4 1 0 N/A 0.2 N/A 0.0 0.4 Respiratory Related Arousal Count 0 2 0 N/A 0 N/A 0 0 Index 0.0 0 0 N/A 0 N/A 0 0 Snoring Analysis Supine Right Left Prone REM NREM Total Snore duration 2.3 min Snores count 8 N/A 113 N/A 1 120 121 Snore mean duration 1.1 Sec Snores index 4 N/A 21 N/A 4.6 17.2 16.8 TST with snoring (%) 0.5% SpO2 Analysis Total REM NREM Awake <50% 0.0 min. 0.0 min. 0.0 min. 0.0 min. 51 - 60% 0.0 min. 0.0 min. 0.0 min. 0.0 min. 61 - 70% 0.0 min. 0.0 min. 0.0 min. 0.0 min. 71 - 80% 0.0 min. 0.0 min. 0.0 min. 0.0 min. 81 - 90% 0.2 min. 0.0 min. 0.0 min. 0.1 min. 91 - 100% 491.1 min. 13.0 min. 417.9 min. 60.2 min. Average 93 94 92 94 Minimum SpO2 89 92 90 89 Desaturation Event Index 1.1 0.0 1.0 2.0 # Desat. Events below 89% N/A N/A N/A N/A Time(%) with Saturation below 89% 0.0 0.0 0.0 0.0 Time(min.) with Saturation below 89% 0.0 0.0 0.0 0.0 Heart Rate Analysis End Tidal CO2 Analysis Min (bpm) Max (bpm) Average (bpm) TSP (mins) % of TSP Awake 91 112 103 Above 55 mmHg 0.0 0.0 NREM 91 109 103 50-55 mmHg 0.0 0.0 REM 91 100 95 45-50 mmHg 0.0 0.0 Overall 91 109 102 40-45 mmHg 0.0 0.0 35-40 mmHg 0.0 0.0 30-35 mmHg 303.9 70.5 Average ETCO2 0.0 Supplemental O2 Values Minimum O2 level: None Value Start Time End Time Melt Supervisor Comments Ms. Chairez slept in the left and supine positions with the head of her bed slightly elevated. Some tachycardia noted. No PLM's noted. No bruxism noted. Snoring was noted and scored as a 1 on a scale of 1 through 5. (0=no snoring, 5=snoring loud enough to be heard through a closed door or down the [address] way) She did not use the restroom during the night. She stated that she slept about the same as when at home. The final report will be interpreted and signed by a sleep physician. The completed physician report will then be placed in the patient medical record. Therapy (cm H2O) 0 TIB (min.) 492.5 TST (min.) 431.0 Sleep Onset (min.) 31.5 REM Onset From Sleep (min.) 412.0 Sleep Efficiency % 88 Wakefulness (%) 12 Wakefulness (min.) 61.5 NREM 1 (%) 4 NREM 1 (min.) 18.0 NREM 2 (%) 68 NREM 2 (min.) 292.0 NREM 3 (%) 25 NREM 3 (min.) 108.0 REM (%) 3 REM (min.) 13.0 # Arousals 15 Arousal Index 2 # Snore 121 Snore Index 16.8 AHI 0.4 AHI Supine 1 AHI Non-Supine 0 NREM AHI 0.4 REM AHI 0.0 RDI 0.4 # Obstructive Apnea 1 # Central Apnea 1 # Mixed Apnea 0 # Hypopneas 1 RERAs 0 Total Respiratory Events 3 Time Below SpO2 89% (min.) 0.0 Mean NREM SpO2 (%) 92 Mean REM SpO2 (%) 94 Mean Sleep SpO2 (%) 93 Min NREM SpO2 (%) 90 Min REM SpO2 (%) 92 Position Supine (min.) 150.1 Position Non-supine (min.) 323.0 LM Index Sleep 1.1 LM Index NREM 1.0 LM Index REM 4.6 Mean Heart Rate (bpm) 102 Min Heart Rate (bpm) 91
--- NOTE | 2016-10-05 08:51 | POLYSOMNOGRAPH REPORT ---
CLINICAL DATA: The patient is a 31-year-old female who has a history of snoring and severe headaches. She has spina bifida. She has a history of shunted hydrocephalus. She had a recent hospital stay at [facility] for severe headaches. Sleep apnea is to be excluded. Her BMI is severely elevated at 74.79. It should be noted she is a bilateral amputate. Her [place] score is 7 out of a possible 24. SLEEP ARCHITECTURE: The total sleep period was 441.5 minutes. The total sleep time was 431.0 minutes. The sleep efficiency was 88%. The sleep onset latency was 31.5 minutes. Wake after sleep onset was 30.0 minutes. The REM latency was severely prolonged to 412 minutes. Sleep consisted of stage N1 4%, stage N2 68%, stage N3 25%, and stage REM 3%. AROUSAL DATA: The patient had a total of 15 arousals including 14 spontaneous and one snoring arousal. The arousal index was 2. PERIODIC LIMB MOVEMENTS DATA: The patient had a total of 8 periodic limb movements for an index of 1.1. RESPIRATORY DATA: The patient had a total of 3 respiratory events including 1 central apnea, 1 obstructive apnea, and 1 hypopnea. The apnea-hypopnea index was normal at 0.4 events per hour. This would indicate no significant sleep apnea. The longest apnea was 10.7 seconds. OXIMETRY DATA: The average saturation throughout the night was 93%. The minimum saturation was 89%. EKG: The patient's rhythm was normal sinus to borderline sinus tachycardia. The cardiac rates ranged from 91-109. There was no cardiac arrhythmia seen. RV REPAIRER'S RV REPAIRER COMMENTS: The patient slept in the left and supine positions with the head of her bed slightly elevated. No bruxism noted. Snoring was noted and scored as a 1 on a scale of 1 through 5. The patient indicated that she slept about the same as when at home. IMPRESSION: 1. Primary snoring -- mild. 2. History of headaches. 3. No evidence of obstructive sleep apnea. COMMENTS: The patient had a near normal sleep efficiency. Sleep architecture showed a decrease in REM sleep. This may be related to certain medicines that she is taking. Nortriptyline may significantly decrease and suppress REM sleep. Her oxygenation was essentially normal. She had no significant sleep apnea. RECOMMENDATIONS: Follow up is deferred to her primary doctor and her neurosurgeons. MARICARMEND
== END | disposition home or self-care (01) ==
LOC: C.NEUR 20:00
PROVIDERS: ATTEND Student in an Organized Health Care Education/Training Program
DX: R06.83 Snoring (principal); Q05.9 Spina bifida, unspecified; Z98.2 Presence of cerebrospinal fluid drainage device; F25.0 Schizoaffective disorder, bipolar type; N31.9 Neuromuscular dysfunction of bladder, unspecified

== ENCOUNTER 2016-10-08 12:35 | Emergency (ER) | payer BC, OTHER ==
[~2016-10-08] VITALS: Ht 119.4 cm; Wt 60.0 kg
[~2016-10-08 12:35] MED LIST changes: -ADVIN50/60 INH; -ALBU18002 INH; -ARIP1TAB PO; -ATR25 PO; -BENZ-88 PO; -BENZ100C7 PO; -BENZ100C84 PO; -BUSP5TAB59 PO; -CEFE2INJ2; -CHOL200010 PO; -CLON0.5T3 PO; -CPR500 PO; -DAPT500I IV; -DFL100 PO; -DIPH25CA5 PO; -DOCU100C31 PO; -DOXYCYLINE PO; -FERR1TAB62 PO; -FLUC100T4 PO; -GABA1CAP4 PO; -GENTAMYCIN PO; -GUAI1TAB68 PO; -HYDR-3124 PO; -HYOS1TAB PO; -INDO1CAP34 PO; -LEVO25TA5 PO; -LEVO50TA6 PO; -LEVO75TA PO; -LINA1CAP2 PO; -LITH1TAB PO; -LITH600C PO; -MCRK20 PO; -MECL1TAB42 PO; -METR-162 PO; -METR0.7527 TOP; -MGNO400 PO; -MGRSP NAE; -MICO1POW8 TOP; -MISCCAP80 PO; -MRLP17X PO; -MTRCR45 TP; -MTRG45 TOP; -MULTTAB58 PO; -NITR-5 PO; -NORE-38 PO; -NORE-39 PO; -NORT75CA PO; -NRT/25 PO; -NYST100010 TOP; -NYSTCRE11; -ONDA4TAB10 SL; -OXYC-57 PO; -PANT40TA PO; -PANT40TA2 PO; -POTA10CA28 PO; -PROB1TAB16 PO; -RISP1TAB3 PO; -RISP1TAB68 PO; -RIVA1.5T PO; -RIVA1TAB4 PO; -RSP1 PO; -RXC5 PO; -SNG10 PO; -TOBRAMYCIN PO; -TOPI1CAP12 PO; -TOPI1CAP3 PO; -TOPI25TA99 PO; -TPM25 PO; -ULT50 PO; -VENL37.593 PO; -VTMB12 PO; -WOUN1PAD EXT; -XPNINS NEB; -XRL10 PO; -XRL15 PO; -XRL20 PO; -ZFRI4 IV; -ZNT/150 PO; -ZOLM1TAB3 PO; -[UNRECOGNIZED DRUG - CODE] IART; -[UNRECOGNIZED DRUG - CODE] IV; -[UNRECOGNIZED DRUG - CODE] IV; -[UNRECOGNIZED DRUG - CODE] IV; -[UNRECOGNIZED DRUG - CODE] IV; -[UNRECOGNIZED DRUG - CODE] PO
[2016-10-08 12:40] VITALS: TEMP 36.6; Ht 119.4 cm; Wt 60.0 kg
[2016-10-08] MEDS ORDERED: PROB1TAB16 PO (13:52)
[2016-10-08] MEDS ORDERED: NORE-38 PO (13:52)
[2016-10-08] MEDS ORDERED: TOPI25TA99 PO (13:52)
[2016-10-08] MEDS ORDERED: NYSTCRE11 (13:52)
[2016-10-08] MEDS ORDERED: BUSP5TAB59 PO (13:52)
[2016-10-08] MEDS ORDERED: NYST100010 TOP (13:52)
[2016-10-08] MEDS ORDERED: DOCU100C31 PO (13:52)
--- NOTE | 2016-10-08 13:59 | EMERGENCY ROOM VISIT NOTE ---
"History Report prepared by James: Jessica Funes Under the Supervision of: Dr. Himanshu Chery M.D. First contact with patient: 13:40 Chief Complaint: MENTAL HEALTH EVALUATION Stated Complaint: HEARING VOICES History of Present Illness The patient is a 31 year old female who presents to the Emergency Room with complaints of persistent auditory hallucinations starting a couple days ago. She has been hearing voices. Her mom states she has been hearing arguments that are not happening. She has recent had medication changes. Her Abilify and topiramate were increased 3 weeks ago and topiramate was added 2 weeks ago. She also has been feeling physically unwell. She is receiving daily doses of IV ertapenem for a UTI. She has two wounds on her feet which are healing well. Source of History: patient, parent Onset: couple days ago Position: other (mental health) Quality: other (auditory hallucinations) Timing: other (persistent) Review of Systems See HPI for pertinent positives & negatives. A total of 10 systems reviewed and were otherwise negative. Past Medical & Surgical Medical Problems: (1) Allergic reaction caused by a drug (2) Anxiety (3) Bipolar 1 disorder (4) Depression (5) Gastroparesis (6) GERD (gastroesophageal reflux disease) (7) Hydrocephalus (8) Intractable headache (9) Migraines (10) MRSA (methicillin resistant Staphylococcus aureus) (11) Osteomyelitis (12) Shunt placement with revision x8 (13) Spina bifida (14) UTI (urinary tract infection) Surgical Problems: (1) S/P BKA (below knee amputation) bilateral Family History Cancer Diabetes mellitus Lung disease Social History Smoking Status: Never Smoker Alcohol Use: none Drug Use: none Marital Status: single Housing Status: lives with family Occupation Status: disabled Current/Historical Medications Scheduled Aripiprazole (Abilify), 1 TAB PO DAILY Buspirone Hcl (Buspirone Hcl), 1 TAB PO BID Cholecalciferol (Vitamin D), 2,000 INTER.UNIT PO DAILY Clonazepam (Klonopin), 0.5 MG PO BID Cyanocobalamin (Vitamin B-12), 500 MG PO BID Docusate Sodium (Dulcolax Stool Softener), 100 MG PO BID Docusate Sodium (Docusate Sodium), 1 CAP PO BID Ertapenem Sodium (Invanz), 1 GM IV DAILY Ethinyl Estradiol/Norethindr (Loestrin 1.5/30-21 1.5-30 mg-Mcg), 1 TAB PO DAILY Ferrous Sulfate (Kp Ferrous Sulfate), 1 TAB PO BIDM Fluticasone Prop/Salmeterol (Advair Diskus 500/50 60 Dose), 1 PUFF INH BID Gabapentin (Gabapentin), 300 MG PO TID Hydroxyzine Hcl (Atarax), 25 MG PO QD@1200 Hyoscyamine Sulfate (Levsin), 0.125 MG PO QID Levothyroxine Sodium (Levothyroxine Sodium), 25 MG PO DAILY Linaclotide (Linzess), 290 MCG PO QAM Floral Carbonate (Floral Carbonate), 600 MG PO HS Floral Carbonate (Floral Carbonate ER), 450 MG PO QAM Meclizine Hcl (Meclizine Hcl), 1 TAB PO TID Multiple Vitamin (Multivitamin), 1 TAB PO DAILY Nortriptyline Hcl (Pamelor), 75 MG PO HS Nortriptyline Hcl (Pamelor), 25 MG PO HS Pantoprazole (Pantoprazole Sodium), 40 MG PO QAM Probiotic Product (Probiotic), 1 TAB PO BID Ranitidine (Zantac), 150 MG PO HS Sennosides (Senna Lax), 8.6 MG PO DAILY Topiramate (Topamax ), 75 MG PO BID Wound Dressings (Hydrofera Blue Foam Dress), 1 APPLN TOP DAILY Scheduled PRN Acetaminophen (Acetaminophen Extra Stren), 500-1,000 MG PO Q6H PRN for Pain Albuterol Hfa (Ventolin Hfa), 2 PUFFS INH Q4 PRN for Shortness of Breath Dihydroergotamine Mesylate (Migranal), 4 MG NA UD PRN for Migraine Hydroxyzine HCl (Hydroxyzine Pamoate), 25 MG PO Q8 PRN for Anxiety Indomethacin (Indocin), 25 MG PO TID PRN for Headache Ketorolac Tromethamine (Ketorolac Tromethamine), 10-20 MG PO UD PRN for Headache Nystatin (Topical) (Nystop), 1 APPL TOP UD PRN for SKIN IMPAIRMENT Ondansetron (Ondansetron HCl), 4 MG PO DAILY PRN for Nausea Tramadol (Ultram), 50 MG PO Q4H PRN for Pain Miscellaneous Medications Nystatin/Triamcinolone (Mycolog ||) Allergies Coded Allergies: Adhesives (Verified Allergy, Intermediate, TAPE- HIVES, 10/08/16) Ceftriaxone (Verified Allergy, Intermediate, rash, 10/08/16) Chlorhexidine (Verified Allergy, Intermediate, RASH, 10/08/16) Ciprofloxacin (Verified Allergy, Intermediate, hives, 10/08/16) Latex (Verified Allergy, Intermediate, hives, 09/29/16) Levofloxacin (Verified Allergy, Intermediate, rash, 10/08/16) Linezolid (Verified Allergy, Intermediate, rash, 10/08/16) Piperacillin (Verified Allergy, Intermediate, SEVERE RASH, HIVES, 09/29/16) Tazobactam (Verified Allergy, Intermediate, SEVERE RASH, HIVES, 10/08/16) Vancomycin (Verified Allergy, Intermediate, rash, 10/08/16) Tobramycin (Verified Allergy, Mild, MILD RASH ON ARM, RED FACE, 10/08/16) IMPROVED AFTER BENADRYL, TAKING REST OF DOSE Amikacin (Verified Allergy, Unknown, PER DR ROBINS,RXN WAS TO ZOSYN NOT AMKrash;hives, 10/08/16) Sulfamethoxazole w/Trimethoprim (Verified Allergy, Unknown, Hives, 10/08/16) Can be pretreated with 10mg Zytrec 45 min prior to admin Physical Exam Vital Signs Date Time Temp Pulse Resp B/P Pulse Ox O2 Delivery O2 Flow Rate FiO2 10/08/16 15:04 102 14 103/66 94 10/08/16 12:40 36.6 103 20 137/94 100 Room Air Physical Exam GENERAL: Patient is a healthy-appearing well-nourished HEAD: Normocephalic atraumatic EYES: Ocular movements intact pupils equal and react to light OROPHARYNX mucous membranes are moist no exudates present no erythema or edema present NECK: Supple no nuchal rigidity CHEST: Good equal expansion, port in place. LUNGS: Clear and equal to auscultation CARDIAC: Normal S1 and S2 ABDOMEN: Soft nontender no guarding BACK: No CVA tenderness EXTREMITIES: No pain upon palpation normal muscle strength in all groups no clubbing cyanosis or edema, bilateral AKA. NEURO: Patient is following commands is answering questions appropriately. Alert and oriented x3 Cranial Nerves 2-12 grossly intact Medical Decision & Procedures Laboratory Results 10/08/16 14:00 Red Blood Count 4.44, Mean Corpuscular Volume 96.2, Mean Corpuscular Hemoglobin 29.5, Mean Corpuscular Hemoglobin Concent 30.7, Mean Platelet Volume 9.8, Neutrophils (%) (Auto) 73.6, Lymphocytes (%) (Auto) 19.1, Monocytes (%) (Auto) 4.6, Eosinophils (%) (Auto) 1.8, Basophils (%) (Auto) 0.5, Neutrophils # (Auto) 7.73, Lymphocytes # (Auto) 2.01, Monocytes # (Auto) 0.48, Eosinophils # (Auto) 0.19, Basophils # (Auto) 0.05 10/08/16 14:00 Test 10/08/16 14:00 10/08/16 14:10 White Blood Count 10.50 K/uL (4.8-10.8) Red Blood Count 4.44 M/uL (4.2-5.4) Hemoglobin 13.1 g/dL (12.0-16.0) Hematocrit 42.7 % (37-47) Mean Corpuscular Volume 96.2 fL (80-100) Mean Corpuscular Hemoglobin 29.5 pg (25-34) Mean Corpuscular Hemoglobin Concent 30.7 g/dl (32-36) Platelet Count 250 K/uL (130-400) Mean Platelet Volume 9.8 fL (7.4-10.4) Neutrophils (%) (Auto) 73.6 % Lymphocytes (%) (Auto) 19.1 % Monocytes (%) (Auto) 4.6 % Eosinophils (%) (Auto) 1.8 % Basophils (%) (Auto) 0.5 % Neutrophils # (Auto) 7.73 K/uL (1.4-6.5) Lymphocytes # (Auto) 2.01 K/uL (1.2-3.4) Monocytes # (Auto) 0.48 K/uL (0.11-0.59) Eosinophils # (Auto) 0.19 K/uL (0-0.5) Basophils # (Auto) 0.05 K/uL (0-0.2) RDW Standard Deviation 49.1 fL (36.4-46.3) RDW Coefficient of Variation 13.9 % (11.5-14.5) Immature Granulocyte % (Auto) 0.4 % Immature Granulocyte # (Auto) 0.04 K/uL (0.00-0.02) Anion Gap 12.0 mmol/L (3-11) Est Creatinine Clear Calc Drug Dose 78.1 ml/min Estimated GFR () 146.0 Estimated GFR (Non- 126.0 BUN/Creatinine Ratio 33.5 (10-20) Calcium Level 8.7 mg/dl (8.5-10.1) Total Bilirubin 0.2 mg/dl (0.2-1) Direct Bilirubin < 0.1 mg/dl (0-0.2) Aspartate Amino Transf (AST/SGOT) 11 U/L (15-37) Alanine Aminotransferase (ALT/SGPT) 18 U/L (12-78) Alkaline Phosphatase 68 U/L (45-117) Total Protein 7.5 gm/dl (6.4-8.2) Albumin 3.0 gm/dl (3.4-5.0) Thyroid Stimulating Hormone (TSH) 2.300 uIu/ml (0.300-4.500) Floral Level 0.9 mMOL/L (0.6-1.2) Ethyl Alcohol mg/dL < 3.0 mg/dl (0-3) Urine Color YELLOW Urine Appearance CLEAR (CLEAR) Urine pH 8.5 (4.5-7.5) Urine Specific Varney 1.012 (1.000-1.030) Urine Protein NEG (NEG) Urine Glucose (UA) NEG (NEG) Urine Ketones NEG (NEG) Urine Occult Blood 1+ (NEG) Urine Nitrite NEG (NEG) Urine Bilirubin NEG (NEG) Urine Urobilinogen NEG (NEG) Urine Leukocyte Esterase TRACE (NEG) Urine WBC (Auto) 1-5 /hpf (0-5) Urine RBC (Auto) 5-10 /hpf (0-4) Urine Hyaline Casts (Auto) 1-5 /lpf (0-5) Urine Epithelial Cells (Auto) >30 /lpf (0-5) Urine Bacteria (Auto) NEG (NEG) Labs reviewed by ED physician. Medications Administered Medications (Trade) Dose Ordered Sig/Brenna Route Start Time Stop Time Status Last Admin Dose Admin Heparin Sodium (Porcine) (Heparin 10 Unit/ ml 5 ml Flush) 5 ml STK-MED ONCE .ROUTE 10/08/16 15:09 10/08/16 15:10 DC 10/08/16 15:14 5 ML ED Course 1345: Past medical records reviewed. The patient was evaluated in room B7. A complete history and physical examination was performed. 1458: Upon reexamination the patient is resting comfortably. I discussed results and treatment plan with the patient and her mother. They verbalize agreement and understanding. The patient is ready for discharge. 1509: Heparin Sodium (Porcine) 5 ml IV. Medical Decision Prior records/ancillary studies reviewed. Triage Nursing notes reviewed. Additional history obtained from family. The patient's history was concerning for possible psychiatric disturbance. Differential diagnosis: Etiologies such as mood disorder, infection, hypoglycemia, electrolyte abnormalities, cardiac sources, intracerebral event, toxicologic, neurologic, as well as others were entertained. This is a 31-year-old female who presents emergency department complaining of hearing voices. The patient denies being suicidal or homicidal. This patient is well-known to me and has been assessed multiple times in the emergency department. She is on IV antibiotics for chronic UTIs as well as sees wound clinic. Per her mother the patient's wounds are healing very well. She recently had changes in her psychiatric medications. I recommended that the patient stop taking BuSpar as that is when her hallucinations began. Patient and mother were in agreement with the treatment plan and do not feel that they need inpatient treatment. They will follow up with her outpatient psychiatrist or will return if symptoms worsen. Impression Primary Impression: Mood disorder Scribe Attestation The scribe's documentation has been prepared under my direction and personally reviewed by me in its entirety. I confirm that the note above accurately reflects all work, treatment, procedures, and medical decision making performed by me. Departure Information Dispostion Home / Self-Care Referrals Darvin Lea D.O.Int.Med. (PCP) Forms HOME CARE DOCUMENTATION FORM, IMPORTANT VISIT INFORMATION Patient Instructions My [facility] Additional Instructions STOP taking Buspar Continue other medications You have been examined and treated today on an emergency basis only. This is not a substitute for, or an effort to provide, complete comprehensive medical care. It is impossible to recognize and treat all injuries or illnesses in a single emergency department visit. It is therefore important that you follow up closely with Dr Lea. Call as soon as possible for an appointment. Thank you for your time and consideration. I look forward to speaking with you again soon. Please don't hesitate to call us if you have any questions."
[2016-10-08 14:17] LABS: HEMATOCRIT 42.7 % (37-47); MEAN CELL VOLUME 96.2 fL (80-100); MEAN CORPUSCULAR HEMOGLOBIN 29.5 pg (25-34); MEAN CORPUSCULAR HGB CONC 30.7 g/dl (32-36); MEAN PLATELET VOLUME 9.8 fL (7.4-10.4); PLATELET COUNT 250 K/uL (130-400); RED BLOOD COUNT 4.44 M/uL (4.2-5.4)
[2016-10-08 14:36] LABS: ALT/SGPT 18 U/L (12-78); AST/SGOT 11 U/L (15-37); BLOOD UREA NITROGEN 19 mg/dl (7-18); BUN/CREATININE RATIO 33.5 (10-20); CALCIUM 8.7 mg/dl (8.5-10.1); CARBON DIOXIDE 21 mmol/L (21-32); CREATININE 0.56 mg/dl (0.60-1.20); GLUCOSE 97 mg/dl (70-99)
[2016-10-08 14:42] LABS: BASO % 0.5 %; BASO ABS # 0.05 K/uL (0-0.2); COMPLETE YES; EOS % 1.8 %; IG% 0.4 %; LYMPH % 19.1 %; LYMPH ABS # 2.01 K/uL (1.2-3.4); MONO % 4.6 %; NEUT % 73.6 %
[2016-10-08 14:47] LABS: ALKALINE PHOSPHATASE 68 U/L (45-117); CHLORIDE 111 mmol/L (98-107); POTASSIUM 3.9 mmol/L (3.5-5.1); SODIUM 144 mmol/L (136-145)
[2016-10-08 14:57] LABS: URINE APPEARANCE CLEAR (CLEAR); URINE BILIRUBIN NEG (NEG); URINE COLOR YELLOW; URINE EPITHELIAL CELL AUTO >30 /lpf (0-5); URINE NITRITE NEG (NEG); URINE PH 8.5 (4.5-7.5); URINE SPECIFIC GRAVITY 1.012 (1.000-1.030); UROBILINOGEN NEG (NEG); ZZURINE CULT IF INDIC CATH NO
[2016-10-08 15:00] LABS: MANUAL MICROSCOPIC REQUIRED? NO; REVIEW REQ? NO
[2016-10-08 15:04] VITALS: BP 103/66; PULSE 102; O2SAT 94
[2016-10-26] MEDS ORDERED: [UNRECOGNIZED DRUG - CODE] IV (15:52)
[2016-10-26] MEDS ORDERED: MCRK20 PO (16:06)
[2016-11-18] MEDS ORDERED: CPR500 PO (10:36)
[2016-11-18] MEDS ORDERED: XRL10 PO (10:36)
[2016-12-28] MEDS ORDERED: DFL100 PO (10:32)
[2017-01-11] MEDS ORDERED: LEVO25TA5 PO (13:23)
[2017-01-11] MEDS ORDERED: BENZ100C84 PO (16:58)
[2017-01-11] MEDS ORDERED: XPNINS NEB (17:08)
[2017-01-14] MEDS ORDERED: [UNRECOGNIZED DRUG - CODE] IART (10:53)
[2017-01-14] MEDS ORDERED: RIVA1.5T PO (12:41)
[2017-02-10] MEDS ORDERED: PANT40TA2 PO (16:40)
[2017-02-14] MEDS ORDERED: [UNRECOGNIZED DRUG - CODE] IV (15:35)
[2017-02-14] MEDS ORDERED: XRL20 PO (15:35)
[2017-02-14] MEDS ORDERED: PANT40TA2 PO (15:35)
[2017-02-14] MEDS ORDERED: MTRG45 TOP (15:35)
[2017-02-14] MEDS ORDERED: MGNO400 PO (16:29)
[2017-02-14] MEDS ORDERED: POTA10CA28 PO (16:29)
[2017-03-09] MEDS ORDERED: TOBRAMYCIN PO (12:59)
[2017-03-09] MEDS ORDERED: DOXYCYLINE PO (12:59)
[2017-03-15] MEDS ORDERED: CHOL200010 PO (13:04)
[2017-03-15] MEDS ORDERED: ADVIN50/60 INH (13:04)
[2017-03-15] MEDS ORDERED: NRT/25 PO (13:23)
[2017-03-15] MEDS ORDERED: MGRSP NAE (13:52)
[2017-03-15] MEDS ORDERED: MECL1TAB42 PO (13:52)
[2017-03-15] MEDS ORDERED: WOUN1PAD EXT (13:52)
[2017-03-15] MEDS ORDERED: VTMB12 PO (15:08)
[2017-03-15] MEDS ORDERED: GABA1CAP4 PO (16:40)
[2017-03-15] MEDS ORDERED: LINA1CAP2 PO (16:40)
[2017-03-15] MEDS ORDERED: HYOS1TAB PO (16:40)
[2017-03-15] MEDS ORDERED: FERR1TAB62 PO (17:26)
[2017-03-15] MEDS ORDERED: SENN1TAB80 PO (17:28)
[2017-03-15] MEDS ORDERED: [UNRECOGNIZED DRUG - CODE] PO (19:25)
[2017-03-15] MEDS ORDERED: BENZ-88 PO (22:29)
[2017-04-05] MEDS ORDERED: TOPI1CAP12 PO (13:18)
[2017-04-10] MEDS ORDERED: GENTAMYCIN PO (12:44)
[2017-04-12] MEDS ORDERED: DAPT500I IV (14:52)
[2017-04-12] MEDS ORDERED: OXYC-57 PO (14:52)
[2017-04-20] MEDS ORDERED: METR-162 PO (14:31)
[2017-04-24] MEDS ORDERED: ATR25 PO (14:58)
[2017-04-24] MEDS ORDERED: VENL37.593 PO (14:58)
[2017-04-24] MEDS ORDERED: ZOLM1TAB3 PO (14:58)
[2017-04-24] MEDS ORDERED: CEFE2INJ2 (14:58)
[2017-04-24] MEDS ORDERED: RISP1TAB68 PO (14:58)
[2017-04-24] MEDS ORDERED: LEVO75TA PO (14:58)
[2017-05-11] MEDS ORDERED: SENN1TAB80 PO (13:46)
[2017-05-11] MEDS ORDERED: DAPT500I IV (13:46)
[2017-05-11] MEDS ORDERED: MRLP17X PO (13:46)
[2017-05-11] MEDS ORDERED: [UNRECOGNIZED DRUG - CODE] IV (13:46)
[2017-05-11] MEDS ORDERED: ZFRI4 IV (14:18)
[2017-05-11] MEDS ORDERED: RXC5 PO (14:18)
[2017-05-11] MEDS ORDERED: RISP1TAB68 PO (14:18)
== END 2016-10-08 15:15 | disposition home or self-care (01) ==
LOC: C.EDB 12:36 → C.EDA 15:15
DX: F39 Unspecified mood [affective] disorder (principal); Z83.3 Family history of diabetes mellitus

== ENCOUNTER 2016-10-10 15:42 | Emergency (ER) | payer BC, OTHER ==
[~2016-10-10 15:42] MED LIST changes: +BUSP5TAB59 PO; +DOCU100C31 PO; -ELET20TA PO; -HYDR-5688 PO; -MAGN1SOL7 PO; -MOMLX PO; -MRLP17 PO; +NORE-38 PO; +NYST100010 TOP; +NYSTCRE11; +PROB1TAB16 PO; +TOPI25TA99 PO; -TOPI50TA16 PO
[2016-10-10 15:47] VITALS: TEMP 36.3; Ht 119.4 cm
--- NOTE | 2016-10-10 17:29 | EMERGENCY ROOM VISIT NOTE ---
"History Report prepared by James: Flako Pereira Under the Supervision of: Dr. Imelda Ortega M.D. First contact with patient: 17:15 Chief Complaint: OTHER COMPLAINT Stated Complaint: SHUNT FAILURE History of Present Illness The patient is a 31 year old female who presents to the Emergency Room with complaints of a persistent possible shunt malfunction beginning two days prior to arrival. She currently rates her discomfort as a 9/10 in severity. The patient also complains of a headache, persistently leaning to her right, and difficulty speaking with today's symptoms. She states she does not notice that she is leaning, but her mother will tell her to stop leaning over. The patient notes she called her doctor's office in [place], and they referred the patient to the ED for a CT. She states she is currently being treated for a UTI through her port. The patient notes she went through a 10 days course, and was placed on another 7 days. 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 Review of Systems See HPI for pertinent positives & negatives. A total of 10 systems reviewed and were otherwise negative. Past Medical & Surgical Medical Problems: (1) Allergic reaction caused by a drug (2) Anxiety (3) Bipolar 1 disorder (4) Depression (5) Gastroparesis (6) GERD (gastroesophageal reflux disease) (7) Hydrocephalus (8) Intractable headache (9) Migraines (10) MRSA (methicillin resistant Staphylococcus aureus) (11) Osteomyelitis (12) Shunt placement with revision x8 (13) Spina bifida (14) UTI (urinary tract infection) Surgical Problems: (1) S/P BKA (below knee amputation) bilateral Family History Cancer Diabetes mellitus Lung disease Social History Smoking Status: Never Smoker Alcohol Use: none Drug Use: none Marital Status: single Housing Status: lives with family Occupation Status: disabled Current/Historical Medications Scheduled Aripiprazole (Abilify), 1 TAB PO DAILY Cholecalciferol (Vitamin D), 2,000 INTER.UNIT PO DAILY Clonazepam (Klonopin), 0.5 MG PO BID Cyanocobalamin (Vitamin B-12), 500 MG PO BID Docusate Sodium (Dulcolax Stool Softener), 100 MG PO BID Docusate Sodium (Docusate Sodium), 1 CAP PO BID Ertapenem Sodium (Invanz), 1 GM IV DAILY Ethinyl Estradiol/Norethindr (Loestrin 1.5/30-21 1.5-30 mg-Mcg), 1 TAB PO DAILY Ferrous Sulfate (Kp Ferrous Sulfate), 1 TAB PO BIDM Fluticasone Prop/Salmeterol (Advair Diskus 500/50 60 Dose), 1 PUFF INH BID Gabapentin (Gabapentin), 300 MG PO TID Hydroxyzine Hcl (Atarax), 25 MG PO QD@1200 Hyoscyamine Sulfate (Levsin), 0.125 MG PO QID Levothyroxine Sodium (Levothyroxine Sodium), 25 MG PO DAILY Linaclotide (Linzess), 290 MCG PO QAM Ecorse Carbonate (Ecorse Carbonate), 600 MG PO HS Ecorse Carbonate (Ecorse Carbonate ER), 450 MG PO QAM Meclizine Hcl (Meclizine Hcl), 1 TAB PO TID Multiple Vitamin (Multivitamin), 1 TAB PO DAILY Nortriptyline Hcl (Pamelor), 75 MG PO HS Nortriptyline Hcl (Pamelor), 25 MG PO HS Pantoprazole (Pantoprazole Sodium), 40 MG PO QAM Probiotic Product (Probiotic), 1 TAB PO BID Ranitidine (Zantac), 150 MG PO HS Sennosides (Senna Lax), 8.6 MG PO DAILY Topiramate (Topamax ), 75 MG PO BID Wound Dressings (Hydrofera Blue Foam Dress), 1 APPLN TOP DAILY Scheduled PRN Acetaminophen (Acetaminophen Extra Stren), 500-1,000 MG PO Q6H PRN for Pain Albuterol Hfa (Ventolin Hfa), 2 PUFFS INH Q4 PRN for Shortness of Breath Dihydroergotamine Mesylate (Migranal), 4 MG NA UD PRN for Migraine Hydroxyzine HCl (Hydroxyzine Pamoate), 25 MG PO Q8 PRN for Anxiety Indomethacin (Indocin), 25 MG PO TID PRN for Headache Ketorolac Tromethamine (Ketorolac Tromethamine), 10-20 MG PO UD PRN for Headache Nystatin (Topical) (Nystop), 1 APPL TOP UD PRN for SKIN IMPAIRMENT Ondansetron (Ondansetron HCl), 4 MG PO DAILY PRN for Nausea Tramadol (Ultram), 50 MG PO Q4H PRN for Pain Miscellaneous Medications Nystatin/Triamcinolone (Mycolog ||) Allergies Coded Allergies: Adhesives (Verified Allergy, Intermediate, TAPE- HIVES, 10/08/16) Ceftriaxone (Verified Allergy, Intermediate, rash, 10/08/16) Chlorhexidine (Verified Allergy, Intermediate, RASH, 10/08/16) Ciprofloxacin (Verified Allergy, Intermediate, hives, 10/08/16) Latex (Verified Allergy, Intermediate, hives, 09/29/16) Levofloxacin (Verified Allergy, Intermediate, rash, 10/08/16) Linezolid (Verified Allergy, Intermediate, rash, 10/08/16) Piperacillin (Verified Allergy, Intermediate, SEVERE RASH, HIVES, 09/29/16) Tazobactam (Verified Allergy, Intermediate, SEVERE RASH, HIVES, 10/08/16) Vancomycin (Verified Allergy, Intermediate, rash, 10/08/16) Tobramycin (Verified Allergy, Mild, MILD RASH ON ARM, RED FACE, 10/08/16) IMPROVED AFTER BENADRYL, TAKING REST OF DOSE Amikacin (Verified Allergy, Unknown, PER DR ROBINS,RXN WAS TO ZOSYN NOT AMKrash;hives, 10/08/16) Sulfamethoxazole w/Trimethoprim (Verified Allergy, Unknown, Hives, 10/08/16) Can be pretreated with 10mg Zytrec 45 min prior to admin Physical Exam Vital Signs Date Time Temp Pulse Resp B/P Pulse Ox O2 Delivery O2 Flow Rate FiO2 10/10/16 18:41 90 16 116/70 98 10/10/16 17:56 90 16 118/74 95 10/10/16 15:47 36.3 106 22 109/65 98 Room Air Physical Exam Vital signs reviewed. General: Chronically ill-appearing female, in no significant distress. HEENT: No scleral icterus, PERRLA, neck supple. Atraumatic. Cardiovascular: Regular rate and rhythm, no extra sounds. Pulmonary: Clear to auscultation bilaterally, normal work of breathing. Abdomen: Soft, nontender, nondistended, positive bowel sounds. Musculoskeletal: Chronic atrophy to the bilateral lower extremities. Neurologic: Some slurred speech. Cranial nerves 2 through 12 grossly intact. 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 Alert and oriented. Skin: Warm, dry, no rash Medical Decision & Procedures ER Provider Diagnostic Interpretation: CT results as stated below per my review and radiologist interpretation: HEAD CT NONCONTRAST CT DOSE: 601.98 mGy.cm HISTORY: Headache. Mental status change. shunt eval, FRIED TECHNIQUE: Multiaxial CT images of the head were performed without the use of intravenous contrast. Comparison: 08/05/2016 Findings: The paranasal sinuses and mastoid air cells are clear. Shunt is unchanged in position. Ventricular system is unchanged in configuration. No significant hydrocephalus. No new or interval process. No acute intracranial hemorrhage. Impression: Chronic and stable postoperative change. No acute process. No evidence for hemorrhage or hydrocephalus Electronically signed by: Werner Mcmahon M.D. 10/10/2016 5:51 PM ED Course 1721: Past medical records reviewed. The patient was evaluated in room C9. A complete history and physical examination was performed. 1821: Upon reevaluation, the patient appeared to have improvement of her symptoms. I discussed findings with her. She verbalized agreement of the treatment plan. The patient was discharged home. Medical Decision Differential Diagnoses: Intracranial hemorrhage, intracranial mass, migraine headache, tension headache , sinusitis, meningitis, hydrocephalus, shunt failure. This patient was evaluated and appeared to be in no significant distress. Physical examination is consistent with her chronic illness. There is no focal neurologic deficit. The patient is actively being treated with IV antibiotics for UTI. Head CT was performed and is negative for acute intracranial abnormality. There is no evidence of hydrocephalus at this time. I have low suspicion for a shunt malfunction. The patient and laboratory work done 2 days ago. I suspect she is stable for discharge and will be discharged in care of her family. She will continue treatments as previously prescribed and will return to the ER for worsening of symptoms or any medical concerns. Impression Primary Impression: Weakness Scribe Attestation The scribe's documentation has been prepared under my direction and personally reviewed by me in its entirety. I confirm that the note above accurately reflects all work, treatment, procedures, and medical decision making performed by me. Departure Information Dispostion Home / Self-Care Referrals Darvin Lea D.O.Int.Med. (PCP) Forms HOME CARE DOCUMENTATION FORM, IMPORTANT VISIT INFORMATION, WORK / SCHOOL INSTRUCTIONS Patient Instructions My [facility] Additional Instructions Diagnosis: Weakness Continue your IV antibiotics as prescribed. Follow-up with your primary care physician this week for reevaluation. Follow-up with your neurosurgeon if symptoms continue. Return to the ER for worsening of symptoms or any medical concerns."
--- NOTE | 2016-10-10 17:53 | DIAGNOSTIC IMAGING REPORT ---
HEAD CT NONCONTRAST CT DOSE: 601.98 mGy.cm HISTORY: Headache. Mental status change. shunt eval, FRIED TECHNIQUE: Multiaxial CT images of the head were performed without the use of intravenous contrast. Comparison: 08/05/2016 Findings: The paranasal sinuses and mastoid air cells are clear. Shunt is unchanged in position. Ventricular system is unchanged in configuration. No significant hydrocephalus. No new or interval process. No acute intracranial hemorrhage. Impression: Chronic and stable postoperative change. No acute process. No evidence for hemorrhage or hydrocephalus Electronically signed by: Werner Mcmahon M.D. 10/10/2016 5:51 PM Dictated Date/Time: 10/10/2016 5:50 PM
[2016-10-10 18:41] VITALS: BP 116/70; PULSE 90; O2SAT 98
[2016-10-26] MEDS ORDERED: [UNRECOGNIZED DRUG - CODE] IV (15:52)
[2016-10-26] MEDS ORDERED: MCRK20 PO (16:06)
[2016-11-18] MEDS ORDERED: XRL10 PO (10:36)
[2016-11-18] MEDS ORDERED: CPR500 PO (10:36)
[2016-12-28] MEDS ORDERED: DFL100 PO (10:32)
[2017-01-11] MEDS ORDERED: LEVO25TA5 PO (13:23)
[2017-01-11] MEDS ORDERED: BENZ100C84 PO (16:58)
[2017-01-11] MEDS ORDERED: XPNINS NEB (17:08)
[2017-01-14] MEDS ORDERED: [UNRECOGNIZED DRUG - CODE] IART (10:53)
[2017-01-14] MEDS ORDERED: RIVA1.5T PO (12:41)
[2017-02-10] MEDS ORDERED: PANT40TA2 PO (16:40)
[2017-02-14] MEDS ORDERED: MTRG45 TOP (15:35)
[2017-02-14] MEDS ORDERED: PANT40TA2 PO (15:35)
[2017-02-14] MEDS ORDERED: XRL20 PO (15:35)
[2017-02-14] MEDS ORDERED: [UNRECOGNIZED DRUG - CODE] IV (15:35)
[2017-02-14] MEDS ORDERED: POTA10CA28 PO (16:29)
[2017-02-14] MEDS ORDERED: MGNO400 PO (16:29)
[2017-03-09] MEDS ORDERED: TOBRAMYCIN PO (12:59)
[2017-03-09] MEDS ORDERED: DOXYCYLINE PO (12:59)
[2017-03-15] MEDS ORDERED: CHOL200010 PO (13:04)
[2017-03-15] MEDS ORDERED: ADVIN50/60 INH (13:04)
[2017-03-15] MEDS ORDERED: NRT/25 PO (13:23)
[2017-03-15] MEDS ORDERED: MGRSP NAE (13:52)
[2017-03-15] MEDS ORDERED: WOUN1PAD EXT (13:52)
[2017-03-15] MEDS ORDERED: MECL1TAB42 PO (13:52)
[2017-03-15] MEDS ORDERED: VTMB12 PO (15:08)
[2017-03-15] MEDS ORDERED: GABA1CAP4 PO (16:40)
[2017-03-15] MEDS ORDERED: HYOS1TAB PO (16:40)
[2017-03-15] MEDS ORDERED: LINA1CAP2 PO (16:40)
[2017-03-15] MEDS ORDERED: FERR1TAB62 PO (17:26)
[2017-03-15] MEDS ORDERED: SENN1TAB80 PO (17:28)
[2017-03-15] MEDS ORDERED: [UNRECOGNIZED DRUG - CODE] PO (19:25)
[2017-03-15] MEDS ORDERED: BENZ-88 PO (22:29)
[2017-04-05] MEDS ORDERED: TOPI1CAP12 PO (13:18)
[2017-04-10] MEDS ORDERED: GENTAMYCIN PO (12:44)
[2017-04-12] MEDS ORDERED: DAPT500I IV (14:52)
[2017-04-12] MEDS ORDERED: OXYC-57 PO (14:52)
[2017-04-20] MEDS ORDERED: METR-162 PO (14:31)
[2017-04-24] MEDS ORDERED: VENL37.593 PO (14:58)
[2017-04-24] MEDS ORDERED: LEVO75TA PO (14:58)
[2017-04-24] MEDS ORDERED: RISP1TAB68 PO (14:58)
[2017-04-24] MEDS ORDERED: ATR25 PO (14:58)
[2017-04-24] MEDS ORDERED: ZOLM1TAB3 PO (14:58)
[2017-04-24] MEDS ORDERED: CEFE2INJ2 (14:58)
[2017-05-11] MEDS ORDERED: MRLP17X PO (13:46)
[2017-05-11] MEDS ORDERED: SENN1TAB80 PO (13:46)
[2017-05-11] MEDS ORDERED: [UNRECOGNIZED DRUG - CODE] IV (13:46)
[2017-05-11] MEDS ORDERED: DAPT500I IV (13:46)
[2017-05-11] MEDS ORDERED: RXC5 PO (14:18)
[2017-05-11] MEDS ORDERED: ZFRI4 IV (14:18)
[2017-05-11] MEDS ORDERED: RISP1TAB68 PO (14:18)
== END 2016-10-10 18:42 | disposition home or self-care (01) ==
LOC: C.EDB 15:43 → C.EDC 18:42
DX: R53.1 Weakness (principal); F41.9 Anxiety disorder, unspecified; F31.9 Bipolar disorder, unspecified; F32.9 Major depressive disorder, single episode, unspecified; K31.84 Gastroparesis; K21.9 Gastro-esophageal reflux disease without esophagitis; M86.9 Osteomyelitis, unspecified; Q05.4 Unspecified spina bifida with hydrocephalus; Z86.14 Personal history of Methicillin resistant Staphylococcus aureus infection; Z89.511 Acquired absence of right leg below knee; Z89.512 Acquired absence of left leg below knee; Z80.9 Family history of malignant neoplasm, unspecified; Z83.3 Family history of diabetes mellitus; Z83.6 Family history of other diseases of the respiratory system; Z79.899 Other long term (current) drug therapy

== ENCOUNTER → 2016-10-11 | Outpatient (CLI) | payer BC, OTHER ==
[~2016-10-11] MED LIST changes: +ADVIN50/60 INH; +ALBU18002 INH; +ARIP1TAB PO; +BENZ100C7 PO; +BENZ100C84 PO; +BND25 PO; -BUSP5TAB59 PO; +CGN1X PO; +CHOL200010 PO; +CLON0.5T3 PO; +CPR500 PO; +DFL100 PO; +DOXYCYLINE PO; +FERR325T PO; +FLUC100T4 PO; +GABA1CAP4 PO; +GUAI1TAB68 PO; +HYDR-3124 PO; +HYOS1TAB PO; +INDO1CAP34 PO; +LEVO25TA5 PO; +LEVO50TA6 PO; +LINA1CAP2 PO; +LITH1TAB PO; +LITH600C PO; +MCRK20 PO; +MECL1TAB42 PO; +METR0.7527 TOP; +MGNO400 PO; +MGRSP NAE; +MICO1POW8 TOP; +MISCCAP80 PO; +MTRCR45 TP; +MTRG45 TOP; +MULTTAB58 PO; +NITR-5 PO; +NORE-39 PO; +NORT75CA PO; +NRT/25 PO; +ONDA4TAB10 SL; +PANT40TA PO; +POTA10CA28 PO; +PRT/40 PO; +RISP1TAB3 PO; +RISP1TAB68 PO; +RIVA1.5T PO; +RIVA1TAB4 PO; +RSP1 PO; -SENN1TAB80 PO; +SENN8.6T13 PO; +SNG10 PO; +TOBRAMYCIN PO; +TOPI1CAP3 PO; +TPM25 PO; +ULT50 PO; +VTMB12 PO; +WOUN1PAD EXT; +XPNINS NEB; +XRL10 PO; +XRL15 PO; +XRL20 PO; +ZNT/150 PO; +[UNRECOGNIZED DRUG - CODE] IART; +[UNRECOGNIZED DRUG - CODE] IV; +[UNRECOGNIZED DRUG - CODE] IV; +[UNRECOGNIZED DRUG - CODE] IV; +[UNRECOGNIZED DRUG - CODE] PO
[2016-10-11 17:41] LABS: BASO % 0.3 %; BASO ABS # 0.03 K/uL (0-0.2); COMPLETE YES; HEMATOCRIT 43.9 % (37-47); IG% 0.2 %; LYMPH % 17.8 %; LYMPH ABS # 1.77 K/uL (1.2-3.4); MEAN CELL VOLUME 96.5 fL (80-100); MEAN CORPUSCULAR HGB CONC 32.1 g/dl (32-36); MEAN PLATELET VOLUME 10.5 fL (7.4-10.4); MONO % 6.5 %; NEUT % 73.2 %; PLATELET COUNT 236 K/uL (130-400); RED BLOOD COUNT 4.55 M/uL (4.2-5.4); WHITE BLOOD COUNT 9.96 K/uL (4.8-10.8)
[2016-10-11 18:48] LABS: ALT/SGPT 19 U/L (12-78); BLOOD UREA NITROGEN 14 mg/dl (7-18); CALCIUM 8.7 mg/dl (8.5-10.1); CARBON DIOXIDE 21 mmol/L (21-32); CHLORIDE 114 mmol/L (98-107); CREATININE 0.77 mg/dl (0.60-1.20); GLUCOSE 97 mg/dl (70-99); POTASSIUM 3.8 mmol/L (3.5-5.1); SODIUM 146 mmol/L (136-145)
[2016-10-11 18:57] LABS: ALB/GLOB RATIO 0.7 (0.9-2); ALKALINE PHOSPHATASE 70 U/L (45-117); AST/SGOT 6 U/L (15-37)
--- NOTE | 2016-12-02 07:41 | CODING QUERY NO DIAGNOSIS ---
TREATMENT RENDERED WITHOUT A DIAGNOSIS To promote full compliance with coding requirements relating to patient care, physician participation is requested in all cases of scheduling agent uncertainty. Please assist us with providing a diagnosis/symptom for the test(s) below: A diagnosis/symptom was not documented on your Order. A valid diagnosis/symptom is required to bill all insurances. Please remember that we are unable to code a diagnosis of rule out, probable, possible, questionable, or suspected. Tests that require a diagnosis: * CBC W/ AUTO DIFF DIAGNOSIS: * CMP DIAGNOSIS: Provider Signature: Date: Thank you Mamta Willoughby [employer] Information Management Once completed, please kindly fax back to [phone] For questions please call [phone]
== END | disposition home or self-care (01) ==
LOC: C.LABSPEC 16:20
PROVIDERS: ATTEND Family Medicine
DX: Z01.89 Encounter for other specified special examinations (principal)

== ENCOUNTER 2016-10-17 16:16 | Emergency (ER) | payer BC, OTHER ==
[~2016-10-17] VITALS: Ht 119.4 cm; Wt 105.5 kg
[~2016-10-17 16:16] MED LIST changes: -ADVIN50/60 INH; -ALBU18002 INH; -ARIP1TAB PO; -BENZ100C7 PO; -BENZ100C84 PO; -BND25 PO; -CGN1X PO; -CHOL200010 PO; -CLON0.5T3 PO; -CPR500 PO; -DFL100 PO; -DOXYCYLINE PO; -FERR325T PO; -FLUC100T4 PO; -GABA1CAP4 PO; -GUAI1TAB68 PO; -HYDR-3124 PO; -HYOS1TAB PO; -INDO1CAP34 PO; -LEVO25TA5 PO; -LEVO50TA6 PO; -LINA1CAP2 PO; -LITH1TAB PO; -LITH600C PO; -MCRK20 PO; -MECL1TAB42 PO; -METR0.7527 TOP; -MGNO400 PO; -MGRSP NAE; -MICO1POW8 TOP; -MISCCAP80 PO; -MTRCR45 TP; -MTRG45 TOP; -MULTTAB58 PO; -NITR-5 PO; -NORE-39 PO; -NORT75CA PO; -NRT/25 PO; -ONDA4TAB10 SL; -PANT40TA PO; -POTA10CA28 PO; -PRT/40 PO; -RISP1TAB3 PO; -RISP1TAB68 PO; -RIVA1.5T PO; -RIVA1TAB4 PO; -RSP1 PO; +SENN1TAB80 PO; -SENN8.6T13 PO; -SNG10 PO; -TOBRAMYCIN PO; -TOPI1CAP3 PO; -TPM25 PO; -ULT50 PO; -VTMB12 PO; -WOUN1PAD EXT; -XPNINS NEB; -XRL10 PO; -XRL15 PO; -XRL20 PO; -ZNT/150 PO; -[UNRECOGNIZED DRUG - CODE] IART; -[UNRECOGNIZED DRUG - CODE] IV; -[UNRECOGNIZED DRUG - CODE] IV; -[UNRECOGNIZED DRUG - CODE] IV; -[UNRECOGNIZED DRUG - CODE] PO
[2016-10-17 16:21] VITALS: TEMP 37; Ht 119.4 cm; Wt 105.5 kg
--- NOTE | 2016-10-17 16:56 | EMERGENCY ROOM VISIT NOTE ---
"History Report prepared by James: Dariana Albert Under the Supervision of: Dr. Himanshu Chery M.D. First contact with patient: 16:26 Chief Complaint: MENTAL HEALTH EVALUATION Stated Complaint: SUICIDAL History of Present Illness The patient is a 31 year old female who presents to the Emergency Room with complaints of persistent auditory hallucinations over the 10 days. The patient' s mother notes that the patient was evaluated in the emergency department 10 days ago for similar symptoms. At that time, she states that the patient was told to decrease her dose of her new medication. The patient states that she has been feeling very paranoid. She states that the hallucinations have worsened. The patient's mother states that the patient is no longer on IV antibiotics. She states that 7 days ago the patient saw her therapist and 5 days ago she was seen in [place]. The patient's mother states that the patient called 911 today due to her hallucinations and went to see her psychiatrist Dr. Loza. The patient states that she was instructed to come to the emergency department by Dr. Loza to have her lithium level checked and to be evaluated further for her mental health. The patient states that she sees her therapist twice per week. The patient's mother notes that the patient additionally called 911 two nights ago due to her hallucinations. Source of History: patient, parent (mother) Onset: 10 days ago Position: other (global) Quality: other (auditory hallucinations) Timing: worsening, other (persistent) Review of Systems See HPI for pertinent positives & negatives. A total of 10 systems reviewed and were otherwise negative. Past Medical & Surgical Medical Problems: (1) Allergic reaction caused by a drug (2) Anxiety (3) Bipolar 1 disorder (4) Depression (5) Gastroparesis (6) GERD (gastroesophageal reflux disease) (7) Hydrocephalus (8) Intractable headache (9) Migraines (10) MRSA (methicillin resistant Staphylococcus aureus) (11) Osteomyelitis (12) Shunt placement with revision x8 (13) Spina bifida (14) UTI (urinary tract infection) Surgical Problems: (1) S/P BKA (below knee amputation) bilateral Family History Cancer Diabetes mellitus Lung disease Social History Smoking Status: Never Smoker Alcohol Use: none Drug Use: none Marital Status: single Housing Status: lives with family Occupation Status: disabled Current/Historical Medications Scheduled Aripiprazole (Abilify), 1 TAB PO DAILY Cholecalciferol (Vitamin D), 2,000 INTER.UNIT PO DAILY Clonazepam (Klonopin), 0.5 MG PO BID Cyanocobalamin (Vitamin B-12), 500 MG PO BID Docusate Sodium (Dulcolax Stool Softener), 100 MG PO BID Docusate Sodium (Docusate Sodium), 1 CAP PO BID Ethinyl Estradiol/Norethindr (Loestrin 1.5/30-21 1.5-30 mg-Mcg), 1 TAB PO DAILY Ferrous Sulfate (Kp Ferrous Sulfate), 1 TAB PO BIDM Fluticasone Prop/Salmeterol (Advair Diskus 500/50 60 Dose), 1 PUFF INH BID Gabapentin (Gabapentin), 300 MG PO TID Hydroxyzine Hcl (Atarax), 25 MG PO QD@1200 Hyoscyamine Sulfate (Levsin), 0.125 MG PO QID Levothyroxine Sodium (Levothyroxine Sodium), 25 MG PO DAILY Linaclotide (Linzess), 290 MCG PO QAM [place] Carbonate ([place] Carbonate), 600 MG PO HS [place] Carbonate ([place] Carbonate ER), 450 MG PO QAM Meclizine Hcl (Meclizine Hcl), 1 TAB PO TID Multiple Vitamin (Multivitamin), 1 TAB PO DAILY Nortriptyline Hcl (Pamelor), 75 MG PO HS Nortriptyline Hcl (Pamelor), 25 MG PO HS Pantoprazole (Pantoprazole Sodium), 40 MG PO QAM Probiotic Product (Probiotic), 1 TAB PO BID Ranitidine (Zantac), 150 MG PO HS Sennosides (Senna Lax), 8.6 MG PO DAILY Topiramate (Topamax ), 75 MG PO BID Wound Dressings (Hydrofera Blue Foam Dress), 1 APPLN TOP DAILY Scheduled PRN Acetaminophen (Acetaminophen Extra Stren), 500-1,000 MG PO Q6H PRN for Pain Albuterol Hfa (Ventolin Hfa), 2 PUFFS INH Q4 PRN for Shortness of Breath Dihydroergotamine Mesylate (Migranal), 4 MG NA UD PRN for Migraine Hydroxyzine HCl (Hydroxyzine Pamoate), 25 MG PO Q8 PRN for Anxiety Indomethacin (Indocin), 25 MG PO TID PRN for Headache Ketorolac Tromethamine (Ketorolac Tromethamine), 10-20 MG PO UD PRN for Headache Nystatin (Topical) (Nystop), 1 APPL TOP UD PRN for SKIN IMPAIRMENT Ondansetron (Ondansetron HCl), 4 MG PO DAILY PRN for Nausea Tramadol (Ultram), 50 MG PO Q4H PRN for Pain Miscellaneous Medications Nystatin/Triamcinolone (Mycolog ||) Allergies Coded Allergies: Adhesives (Verified Allergy, Intermediate, TAPE- HIVES, 10/08/16) Ceftriaxone (Verified Allergy, Intermediate, rash, 10/08/16) Chlorhexidine (Verified Allergy, Intermediate, RASH, 10/08/16) Ciprofloxacin (Verified Allergy, Intermediate, hives, 10/08/16) Latex (Verified Allergy, Intermediate, hives, 09/29/16) Levofloxacin (Verified Allergy, Intermediate, rash, 10/08/16) Linezolid (Verified Allergy, Intermediate, rash, 10/08/16) Piperacillin (Verified Allergy, Intermediate, SEVERE RASH, HIVES, 09/29/16) Tazobactam (Verified Allergy, Intermediate, SEVERE RASH, HIVES, 10/08/16) Vancomycin (Verified Allergy, Intermediate, rash, 10/08/16) Tobramycin (Verified Allergy, Mild, MILD RASH ON ARM, RED FACE, 10/08/16) IMPROVED AFTER BENADRYL, TAKING REST OF DOSE Amikacin (Verified Allergy, Unknown, PER DR ROBINS,RXN WAS TO ZOSYN NOT AMKrash;hives, 10/08/16) Sulfamethoxazole w/Trimethoprim (Verified Allergy, Unknown, Hives, 10/08/16) Can be pretreated with 10mg Zytrec 45 min prior to admin Physical Exam Vital Signs Date Time Temp Pulse Resp B/P Pulse Ox O2 Delivery O2 Flow Rate FiO2 10/17/16 19:16 99 20 131/84 100 10/17/16 16:21 37.0 118 20 126/81 99 Physical Exam GENERAL: Patient is a healthy-appearing well-nourished HEAD: Normocephalic atraumatic EYES: Ocular movements intact pupils equal and react to light OROPHARYNX mucous membranes are moist no exudates present no erythema or edema present NECK: Supple no nuchal rigidity CHEST: Good equal expansion, port in place. LUNGS: Clear and equal to auscultation CARDIAC: Normal S1 and S2 ABDOMEN: Soft nontender no guarding BACK: No CVA tenderness EXTREMITIES: No pain upon palpation normal muscle strength in all groups no clubbing cyanosis or edema, bilateral AKA. NEURO: Patient is following commands is answering questions appropriately. Alert and oriented x3 Cranial Nerves 2-12 grossly intact Medical Decision & Procedures Laboratory Results 10/17/16 17:58 Red Blood Count 4.88, Mean Corpuscular Volume 95.5, Mean Corpuscular Hemoglobin 30.9, Mean Corpuscular Hemoglobin Concent 32.4, Mean Platelet Volume 10.3, Neutrophils (%) (Auto) 77.7, Lymphocytes (%) (Auto) 13.9, Monocytes (%) (Auto) 5.5, Eosinophils (%) (Auto) 2.5, Basophils (%) (Auto) 0.2, Neutrophils # (Auto) 11.07, Lymphocytes # (Auto) 1.98, Monocytes # (Auto) 0.78, Eosinophils # (Auto) 0.36, Basophils # (Auto) 0.03 10/17/16 17:58 Test 10/17/16 17:20 10/17/16 17:42 10/17/16 17:58 Urine Color YELLOW Urine Appearance CLEAR (CLEAR) Urine pH 7.5 (4.5-7.5) Urine Specific [place] 1.011 (1.000-1.030) Urine Protein NEG (NEG) Urine Glucose (UA) NEG (NEG) Urine Ketones NEG (NEG) Urine Occult Blood 1+ (NEG) Urine Nitrite NEG (NEG) Urine Bilirubin NEG (NEG) Urine Urobilinogen NEG (NEG) Urine Leukocyte Esterase TRACE (NEG) Urine WBC (Auto) 1-5 /hpf (0-5) Urine RBC (Auto) 5-10 /hpf (0-4) Urine Hyaline Casts (Auto) 1-5 /lpf (0-5) Urine Epithelial Cells (Auto) >30 /lpf (0-5) Urine Bacteria (Auto) NEG (NEG) Urine Opiates Screen NEG (NEG) Urine Methadone, Qualitative NEG (NEG) Urine Barbiturates NEG (NEG) Urine Phencyclidine (PCP) Level NEG (NEG) Ur Amphetamine/Methamphetamine NEG (NEG) MDMA (Ecstasy) Screen NEG (NEG) Urine Benzodiazepines Screen NEG (NEG) Urine Cocaine Metabolite NEG (NEG) Urine Marijuana (THC) NEG (NEG) Bedside Glucose 112 mg/dl (70-90) White Blood Count 14.25 K/uL (4.8-10.8) Red Blood Count 4.88 M/uL (4.2-5.4) Hemoglobin 15.1 g/dL (12.0-16.0) Hematocrit 46.6 % (37-47) Mean Corpuscular Volume 95.5 fL (80-100) Mean Corpuscular Hemoglobin 30.9 pg (25-34) Mean Corpuscular Hemoglobin Concent 32.4 g/dl (32-36) Platelet Count 200 K/uL (130-400) Mean Platelet Volume 10.3 fL (7.4-10.4) Neutrophils (%) (Auto) 77.7 % Lymphocytes (%) (Auto) 13.9 % Monocytes (%) (Auto) 5.5 % Eosinophils (%) (Auto) 2.5 % Basophils (%) (Auto) 0.2 % Neutrophils # (Auto) 11.07 K/uL (1.4-6.5) Lymphocytes # (Auto) 1.98 K/uL (1.2-3.4) Monocytes # (Auto) 0.78 K/uL (0.11-0.59) Eosinophils # (Auto) 0.36 K/uL (0-0.5) Basophils # (Auto) 0.03 K/uL (0-0.2) RDW Standard Deviation 48.3 fL (36.4-46.3) RDW Coefficient of Variation 13.8 % (11.5-14.5) Immature Granulocyte % (Auto) 0.2 % Immature Granulocyte # (Auto) 0.03 K/uL (0.00-0.02) Anion Gap 7.0 mmol/L (3-11) Est Creatinine Clear Calc Drug Dose 86.6 ml/min Estimated GFR () 119.1 Estimated GFR (Non- 102.7 BUN/Creatinine Ratio 14.3 (10-20) Calcium Level 8.9 mg/dl (8.5-10.1) Total Bilirubin 0.2 mg/dl (0.2-1) Direct Bilirubin < 0.1 mg/dl (0-0.2) Aspartate Amino Transf (AST/SGOT) 9 U/L (15-37) Alanine Aminotransferase (ALT/SGPT) 21 U/L (12-78) Alkaline Phosphatase 80 U/L (45-117) Total Protein 8.1 gm/dl (6.4-8.2) Albumin 3.2 gm/dl (3.4-5.0) Thyroid Stimulating Hormone (TSH) 2.520 uIu/ml (0.300-4.500) [place] Level 0.8 mMOL/L (0.6-1.2) Ethyl Alcohol mg/dL < 3.0 mg/dl (0-3) Labs reviewed by ED physician. ED Course 1646: Past medical records reviewed. The patient was evaluated in room A6. A complete history and physical examination was performed. 1899: I reevaluated the patient and she is resting comfortably. I discussed the exam findings and I discussed the treatment plan. She verbalized complete understanding and agreement. She is ready to go home. Medical Decision Differential diagnosis: Etiologies such as mood disorder, infection, hypoglycemia, electrolyte abnormalities, cardiac sources, intracerebral event, toxicologic, neurologic, as well as others were entertained. This is a 31-year-old female who presents emergency Department with complaints of hearing voices. The patient has had an ongoing issue with this. Her medication was recently adjusted. Her urinary tract infection has cleared up and the patient is no longer receiving IV antibiotics. In addition the patient' s leg wounds are healing well. I do believe she is medically clear. She does have a slight elevation in her white blood count however this is been elevated in the past. I did discuss the case with case management who interviewed the patient. They felt that the patient was well enough to be discharged home patient was in agreement with treatment plan. Impression Primary Impression: Mood disorder Scribe Attestation The scribe's documentation has been prepared under my direction and personally reviewed by me in its entirety. I confirm that the note above accurately reflects all work, treatment, procedures, and medical decision making performed by me. Departure Information Dispostion Home / Self-Care Referrals Darvin Lea D.O.[facility]. (PCP) Forms HOME CARE DOCUMENTATION FORM, IMPORTANT VISIT INFORMATION, School Instructions, Work Instructions Patient Instructions My [facility] Additional Instructions You have been examined and treated today on an emergency basis only. This is not a substitute for, or an effort to provide, complete comprehensive medical care. It is impossible to recognize and treat all injuries or illnesses in a single emergency department visit. It is therefore important that you follow up closely with Dr Lea. Call as soon as possible for an appointment. Thank you for your time and consideration. I look forward to speaking with you again soon. Please don't hesitate to call us if you have any questions."
[2016-10-17 17:43] LABS: MANUAL MICROSCOPIC REQUIRED? NO; REVIEW REQ? NO; URINE APPEARANCE CLEAR (CLEAR); URINE BILIRUBIN NEG (NEG); URINE COLOR YELLOW; URINE EPITHELIAL CELL AUTO >30 /lpf (0-5); URINE NITRITE NEG (NEG); URINE PH 7.5 (4.5-7.5); URINE SPECIFIC GRAVITY 1.011 (1.000-1.030); UROBILINOGEN NEG (NEG)
[2016-10-17 18:08] LABS: BASO % 0.2 %; BASO ABS # 0.03 K/uL (0-0.2); COMPLETE YES; EOS % 2.5 %; HEMATOCRIT 46.6 % (37-47); IG% 0.2 %; LYMPH % 13.9 %; LYMPH ABS # 1.98 K/uL (1.2-3.4); MEAN CELL VOLUME 95.5 fL (80-100); MEAN CORPUSCULAR HEMOGLOBIN 30.9 pg (25-34); MEAN CORPUSCULAR HGB CONC 32.4 g/dl (32-36); MEAN PLATELET VOLUME 10.3 fL (7.4-10.4); MONO % 5.5 %; NEUT % 77.7 %; PLATELET COUNT 200 K/uL (130-400); RED BLOOD COUNT 4.88 M/uL (4.2-5.4); WHITE BLOOD COUNT 14.25 K/uL (4.8-10.8)
[2016-10-17 18:22] LABS: BENZODIAZEPINE, URINE NEG (NEG); COCAINE,URINE NEG (NEG); PHENCYCLIDINE, URINE NEG (NEG)
[2016-10-17 18:33] LABS: ALT/SGPT 21 U/L (12-78); AST/SGOT 9 U/L (15-37); BLOOD UREA NITROGEN 11 mg/dl (7-18); BUN/CREATININE RATIO 14.3 (10-20); CALCIUM 8.9 mg/dl (8.5-10.1); CARBON DIOXIDE 23 mmol/L (21-32); CHLORIDE 110 mmol/L (98-107); CREATININE 0.78 mg/dl (0.60-1.20); GLUCOSE 95 mg/dl (70-99); POTASSIUM 3.2 mmol/L (3.5-5.1); SODIUM 140 mmol/L (136-145)
[2016-10-17 18:44] LABS: ALKALINE PHOSPHATASE 80 U/L (45-117)
[2016-10-17 19:16] VITALS: BP 131/84; PULSE 99; O2SAT 100
[2016-10-26] MEDS ORDERED: [UNRECOGNIZED DRUG - CODE] IV (15:52)
[2016-10-26] MEDS ORDERED: MCRK20 PO (16:06)
[2016-11-18] MEDS ORDERED: XRL10 PO (10:36)
[2016-11-18] MEDS ORDERED: CPR500 PO (10:36)
[2016-12-28] MEDS ORDERED: DFL100 PO (10:32)
[2017-01-11] MEDS ORDERED: LEVO25TA5 PO (13:23)
[2017-01-11] MEDS ORDERED: BENZ100C84 PO (16:58)
[2017-01-11] MEDS ORDERED: XPNINS NEB (17:08)
[2017-01-14] MEDS ORDERED: [UNRECOGNIZED DRUG - CODE] IART (10:53)
[2017-01-14] MEDS ORDERED: RIVA1.5T PO (12:41)
[2017-02-10] MEDS ORDERED: PANT40TA2 PO (16:40)
[2017-02-14] MEDS ORDERED: XRL20 PO (15:35)
[2017-02-14] MEDS ORDERED: MTRG45 TOP (15:35)
[2017-02-14] MEDS ORDERED: [UNRECOGNIZED DRUG - CODE] IV (15:35)
[2017-02-14] MEDS ORDERED: PANT40TA2 PO (15:35)
[2017-02-14] MEDS ORDERED: POTA10CA28 PO (16:29)
[2017-02-14] MEDS ORDERED: MGNO400 PO (16:29)
[2017-03-09] MEDS ORDERED: TOBRAMYCIN PO (12:59)
[2017-03-09] MEDS ORDERED: DOXYCYLINE PO (12:59)
[2017-03-15] MEDS ORDERED: ADVIN50/60 INH (13:04)
[2017-03-15] MEDS ORDERED: CHOL200010 PO (13:04)
[2017-03-15] MEDS ORDERED: NRT/25 PO (13:23)
[2017-03-15] MEDS ORDERED: MECL1TAB42 PO (13:52)
[2017-03-15] MEDS ORDERED: WOUN1PAD EXT (13:52)
[2017-03-15] MEDS ORDERED: MGRSP NAE (13:52)
[2017-03-15] MEDS ORDERED: VTMB12 PO (15:08)
[2017-03-15] MEDS ORDERED: HYOS1TAB PO (16:40)
[2017-03-15] MEDS ORDERED: GABA1CAP4 PO (16:40)
[2017-03-15] MEDS ORDERED: LINA1CAP2 PO (16:40)
[2017-03-15] MEDS ORDERED: FERR1TAB62 PO (17:26)
[2017-03-15] MEDS ORDERED: SENN1TAB80 PO (17:28)
[2017-03-15] MEDS ORDERED: [UNRECOGNIZED DRUG - CODE] PO (19:25)
[2017-03-15] MEDS ORDERED: BENZ-88 PO (22:29)
[2017-04-05] MEDS ORDERED: TOPI1CAP12 PO (13:18)
[2017-04-10] MEDS ORDERED: GENTAMYCIN PO (12:44)
[2017-04-12] MEDS ORDERED: OXYC-57 PO (14:52)
[2017-04-12] MEDS ORDERED: DAPT500I IV (14:52)
[2017-04-20] MEDS ORDERED: METR-162 PO (14:31)
[2017-04-24] MEDS ORDERED: LEVO75TA PO (14:58)
[2017-04-24] MEDS ORDERED: CEFE2INJ2 (14:58)
[2017-04-24] MEDS ORDERED: VENL37.593 PO (14:58)
[2017-04-24] MEDS ORDERED: ATR25 PO (14:58)
[2017-04-24] MEDS ORDERED: RISP1TAB68 PO (14:58)
[2017-04-24] MEDS ORDERED: ZOLM1TAB3 PO (14:58)
[2017-05-11] MEDS ORDERED: SENN1TAB80 PO (13:46)
[2017-05-11] MEDS ORDERED: DAPT500I IV (13:46)
[2017-05-11] MEDS ORDERED: [UNRECOGNIZED DRUG - CODE] IV (13:46)
[2017-05-11] MEDS ORDERED: MRLP17X PO (13:46)
[2017-05-11] MEDS ORDERED: ZFRI4 IV (14:18)
[2017-05-11] MEDS ORDERED: RISP1TAB68 PO (14:18)
[2017-05-11] MEDS ORDERED: RXC5 PO (14:18)
== END 2016-10-17 19:17 | disposition home or self-care (01) ==
LOC: C.EDB 16:18 → C.EDA 19:17
DX: F39 Unspecified mood [affective] disorder (principal); R44.0 Auditory hallucinations; F41.9 Anxiety disorder, unspecified; F31.9 Bipolar disorder, unspecified; K31.84 Gastroparesis; K21.9 Gastro-esophageal reflux disease without esophagitis; G91.9 Hydrocephalus, unspecified; M86.9 Osteomyelitis, unspecified; Q05.9 Spina bifida, unspecified; Z86.14 Personal history of Methicillin resistant Staphylococcus aureus infection; Z98.2 Presence of cerebrospinal fluid drainage device; Z89.511 Acquired absence of right leg below knee; Z89.512 Acquired absence of left leg below knee; Z83.3 Family history of diabetes mellitus

== ENCOUNTER 2016-10-20 14:59 | Inpatient (IN) | payer BC, OTHER ==
[~2016-10-20] VITALS: Ht 119.4 cm; Wt 110.6 kg
[~2016-10-20 14:59] MED LIST changes: -ERTA1INJ IV
[2016-10-20 16:00] LABS: MEAN CELL VOLUME 93.8 fL (80-100); MEAN CORPUSCULAR HEMOGLOBIN 29.7 pg (25-34); MEAN CORPUSCULAR HGB CONC 31.7 g/dl (32-36); MEAN PLATELET VOLUME 10.1 fL (7.4-10.4); PLATELET COUNT 190 K/uL (130-400); RED BLOOD COUNT 4.48 M/uL (4.2-5.4); WHITE BLOOD COUNT 10.63 K/uL (4.8-10.8)
[2016-10-20 16:19] LABS: ALT/SGPT 24 U/L (12-78); AST/SGOT 12 U/L (15-37); BLOOD UREA NITROGEN 11 mg/dl (7-18); BUN/CREATININE RATIO 13.8 (10-20); CALCIUM 8.4 mg/dl (8.5-10.1); CARBON DIOXIDE 20 mmol/L (21-32); CHLORIDE 115 mmol/L (98-107); GLUCOSE 117 mg/dl (70-99); POTASSIUM 2.9 mmol/L (3.5-5.1); SODIUM 144 mmol/L (136-145)
--- NOTE | 2016-10-20 16:22 | EMERGENCY ROOM VISIT NOTE ---
"History Report prepared by James: Dariana Albert Under the Supervision of: Dr. Paul Suárez D.O. First contact with patient: 15:10 Chief Complaint: MENTAL HEALTH EVALUATION Stated Complaint: BAD HALLUCINATIONS History of Present Illness The patient is a 31 year old female who presents to the Emergency Room with complaints of persistent hallucinations over the past several weeks. Per the psych insurance case manager, the patient was at her therapist today and noted increased hallucinations. The psych insurance case manager states that she spoke to the patient's therapist and the plan was to set the patient up with an outpatient insurance case manager to obtain more services. She notes that it was decided to not have the patient sent to the emergency department today. The patient's mother states that the patient saw her therapist today, but spoke to her psychiatrist, who encouraged the patient to come to the emergency department for further treatment. The patient states that her hallucinations feel more real and states that she sees people hurting her family and people yelling a lot. She denies any homicidal or suicidal ideation. The patient's mother states that she does not believe the patient can be left alone because she calls 911 every time that she is. She states that the patient has a hard time the real from the unreal. The patient's mother reports that the patient was recently taken off a medication and has two foot wounds that are healing. The patient notes that her urine has been becoming more cloudy and has noticed more tenderness around her catheter site. Pt denies headache, change in vision, fevers, chest pain, shortness of breath, nausea, vomiting, diarrhea, and melena. Source of History: patient Onset: past several weeks Position: other (global) Quality: other (hallucinations) Timing: other (persistent) Associated Symptoms: + urinary symptoms (cloudy urine) Note: Associated Symptoms: Visual hallucinations. Review of Systems See HPI for pertinent positives & negatives. A total of 10 systems reviewed and were otherwise negative. Past Medical & Surgical Medical Problems: (1) Allergic reaction caused by a drug (2) Anxiety (3) Bipolar 1 disorder (4) Depression (5) Gastroparesis (6) GERD (gastroesophageal reflux disease) (7) Hydrocephalus (8) Intractable headache (9) Migraines (10) MRSA (methicillin resistant Staphylococcus aureus) (11) Osteomyelitis (12) Shunt placement with revision x8 (13) Spina bifida (14) UTI (urinary tract infection) Surgical Problems: (1) S/P BKA (below knee amputation) bilateral Family History Cancer Diabetes mellitus Lung disease Social History Smoking Status: Never Smoker Alcohol Use: none Drug Use: none Marital Status: single Housing Status: lives with family Occupation Status: disabled Current/Historical Medications Scheduled Aripiprazole (Abilify), 1 TAB PO DAILY Cholecalciferol (Vitamin D), 2,000 INTER.UNIT PO DAILY Clonazepam (Klonopin), 0.5 MG PO BID Cyanocobalamin (Vitamin B-12), 500 MG PO BID Docusate Sodium (Dulcolax Stool Softener), 100 MG PO BID Docusate Sodium (Docusate Sodium), 1 CAP PO BID Ethinyl Estradiol/Norethindr (Loestrin 1.5/30-21 1.5-30 mg-Mcg), 1 TAB PO DAILY Ferrous Sulfate (Kp Ferrous Sulfate), 1 TAB PO BIDM Fluticasone Prop/Salmeterol (Advair Diskus 500/50 60 Dose), 1 PUFF INH BID Gabapentin (Gabapentin), 300 MG PO TID Hydroxyzine Hcl (Atarax), 25 MG PO QD@1200 Hyoscyamine Sulfate (Levsin), 0.125 MG PO QID Levothyroxine Sodium (Levothyroxine Sodium), 25 MG PO DAILY Linaclotide (Linzess), 290 MCG PO QAM Mckay Carbonate (Mckay Carbonate), 600 MG PO HS Mckay Carbonate (Mckay Carbonate ER), 450 MG PO QAM Meclizine Hcl (Meclizine Hcl), 1 TAB PO TID Multiple Vitamin (Multivitamin), 1 TAB PO DAILY Nortriptyline Hcl (Pamelor), 75 MG PO HS Nortriptyline Hcl (Pamelor), 25 MG PO HS Pantoprazole (Pantoprazole Sodium), 40 MG PO QAM Probiotic Product (Probiotic), 1 TAB PO BID Ranitidine (Zantac), 150 MG PO HS Sennosides (Senna Lax), 8.6 MG PO DAILY Topiramate (Topamax ), 75 MG PO BID Wound Dressings (Hydrofera Blue Foam Dress), 1 APPLN TOP DAILY Scheduled PRN Acetaminophen (Acetaminophen Extra Stren), 500-1,000 MG PO Q6H PRN for Pain Albuterol Hfa (Ventolin Hfa), 2 PUFFS INH Q4 PRN for Shortness of Breath Dihydroergotamine Mesylate (Migranal), 4 MG NA UD PRN for Migraine Hydroxyzine HCl (Hydroxyzine Pamoate), 25 MG PO Q8 PRN for Anxiety Indomethacin (Indocin), 25 MG PO TID PRN for Headache Ketorolac Tromethamine (Ketorolac Tromethamine), 10-20 MG PO UD PRN for Headache Nystatin (Topical) (Nystop), 1 APPL TOP UD PRN for SKIN IMPAIRMENT Ondansetron (Ondansetron HCl), 4 MG PO DAILY PRN for Nausea Tramadol (Ultram), 50 MG PO Q4H PRN for Pain Miscellaneous Medications Nystatin/Triamcinolone (Mycolog ||) Allergies Coded Allergies: Adhesives (Verified Allergy, Intermediate, TAPE- HIVES, 10/20/16) Ceftriaxone (Verified Allergy, Intermediate, rash, 10/20/16) Chlorhexidine (Verified Allergy, Intermediate, RASH, 10/20/16) Ciprofloxacin (Verified Allergy, Intermediate, hives, 10/20/16) Latex (Verified Allergy, Intermediate, hives, 09/29/16) Levofloxacin (Verified Allergy, Intermediate, rash, 10/20/16) Linezolid (Verified Allergy, Intermediate, rash, 10/20/16) Piperacillin (Verified Allergy, Intermediate, SEVERE RASH, HIVES, 09/29/16) Tazobactam (Verified Allergy, Intermediate, SEVERE RASH, HIVES, 10/20/16) Vancomycin (Verified Allergy, Intermediate, rash, 10/20/16) Tobramycin (Verified Allergy, Mild, MILD RASH ON ARM, RED FACE, 10/20/16) IMPROVED AFTER BENADRYL, TAKING REST OF DOSE Amikacin (Verified Allergy, Unknown, PER DR ROBINS,RXN WAS TO ZOSYN NOT AMKrash;hives, 10/20/16) Sulfamethoxazole w/Trimethoprim (Verified Allergy, Unknown, Hives, 10/20/16 ) Can be pretreated with 10mg Zytrec 45 min prior to admin Physical Exam Vital Signs Date Time Temp Pulse Resp B/P Pulse Ox O2 Delivery O2 Flow Rate FiO2 10/20/16 18:55 103 22 150/104 97 Room Air 10/20/16 16:56 105 24 149/101 100 Room Air 10/20/16 15:02 36.8 102 20 126/76 96 Room Air Physical Exam GENERAL: Sitting up in wheelchair, disheveled, alert, well appearing, well nourished, no distress, non-toxic EYE EXAM: normal conjunctiva. OROPHARYNX: no exudate, no erythema, lips, buccal mucosa, and tongue normal and mucous membranes are moist NECK: supple, no nuchal rigidity, no adenopathy, non-tender LUNGS: Clear to auscultation. Normal chest wall mechanics HEART: no murmurs, S1 normal and S2 normal ABDOMEN: Suprapubic catheter in place, abdomen soft, non-tender, normo-active bowel sounds, no masses, no rebound or guarding. BACK: Back is symmetrical on inspection and there is no deformity, no midline tenderness, no CVA tenderness. SKIN: no rashes and no bruising UPPER EXTREMITIES: upper extremities are grossly normal. LOWER EXTREMITIES: Bilateral BKA with 2 small bandages placed on the base of amputations. NEURO EXAM: Awake, alert, oriented to person, place, and time, cranial nerves II -XII grossly intact, normal speech, no gross weakness of arms, able to slightly flex hips, at baseline per patient. PSYCH: Denies suicidal ideation or homicidal ideation, admits to visual hallucinations. Medical Decision & Procedures Laboratory Results 10/20/16 15:44 Red Blood Count 4.48, Mean Corpuscular Volume 93.8, Mean Corpuscular Hemoglobin 29.7, Mean Corpuscular Hemoglobin Concent 31.7, Mean Platelet Volume 10.1, Neutrophils (%) (Auto) 70.2, Lymphocytes (%) (Auto) 20.0, Monocytes (%) (Auto) 6.7, Eosinophils (%) (Auto) 2.4, Basophils (%) (Auto) 0.4, Neutrophils # (Auto) 7.46, Lymphocytes # (Auto) 2.13, Monocytes # (Auto) 0.71, Eosinophils # (Auto) 0.26, Basophils # (Auto) 0.04 10/20/16 15:44 Test 10/20/16 15:32 10/20/16 15:44 10/20/16 16:10 10/20/16 16:35 Bedside Glucose 128 mg/dl (70-90) White Blood Count 10.63 K/uL (4.8-10.8) Red Blood Count 4.48 M/uL (4.2-5.4) Hemoglobin 13.3 g/dL (12.0-16.0) Hematocrit 42.0 % (37-47) Mean Corpuscular Volume 93.8 fL (80-100) Mean Corpuscular Hemoglobin 29.7 pg (25-34) Mean Corpuscular Hemoglobin Concent 31.7 g/dl (32-36) Platelet Count 190 K/uL (130-400) Mean Platelet Volume 10.1 fL (7.4-10.4) Neutrophils (%) (Auto) 70.2 % Lymphocytes (%) (Auto) 20.0 % Monocytes (%) (Auto) 6.7 % Eosinophils (%) (Auto) 2.4 % Basophils (%) (Auto) 0.4 % Neutrophils # (Auto) 7.46 K/uL (1.4-6.5) Lymphocytes # (Auto) 2.13 K/uL (1.2-3.4) Monocytes # (Auto) 0.71 K/uL (0.11-0.59) Eosinophils # (Auto) 0.26 K/uL (0-0.5) Basophils # (Auto) 0.04 K/uL (0-0.2) RDW Standard Deviation 47.4 fL (36.4-46.3) RDW Coefficient of Variation 13.8 % (11.5-14.5) Immature Granulocyte % (Auto) 0.3 % Immature Granulocyte # (Auto) 0.03 K/uL (0.00-0.02) Red Blood Cell Morphology Unremarkable Anion Gap 9.0 mmol/L (3-11) Estimated GFR () 115.5 Estimated GFR (Non- 99.6 BUN/Creatinine Ratio 13.8 (10-20) Calcium Level 8.4 mg/dl (8.5-10.1) Total Bilirubin 0.2 mg/dl (0.2-1) Direct Bilirubin < 0.1 mg/dl (0-0.2) Aspartate Amino Transf (AST/SGOT) 12 U/L (15-37) Alanine Aminotransferase (ALT/SGPT) 24 U/L (12-78) Alkaline Phosphatase 78 U/L (45-117) Total Protein 7.3 gm/dl (6.4-8.2) Albumin 2.9 gm/dl (3.4-5.0) Thyroid Stimulating Hormone (TSH) 2.940 uIu/ml (0.300-4.500) Mckay Level 1.1 mMOL/L (0.6-1.2) Ethyl Alcohol mg/dL < 3.0 mg/dl (0-3) Urine Color YELLOW Urine Appearance CLOUDY (CLEAR) Urine pH 7.5 (4.5-7.5) Urine Specific [place] 1.012 (1.000-1.030) Urine Protein NEG (NEG) Urine Glucose (UA) NEG (NEG) Urine Ketones NEG (NEG) Urine Occult Blood 3+ (NEG) Urine Nitrite POS (NEG) Urine Bilirubin NEG (NEG) Urine Urobilinogen NEG (NEG) Urine Leukocyte Esterase MODERATE (NEG) Urine WBC (Auto) 10-30 /hpf (0-5) Urine RBC (Auto) >30 /hpf (0-4) Urine Hyaline Casts (Auto) 5-10 /lpf (0-5) Urine Epithelial Cells (Auto) >30 /lpf (0-5) Urine Bacteria (Auto) 4+ (NEG) Urine Opiates Screen NEG (NEG) Urine Methadone, Qualitative NEG (NEG) Urine Barbiturates NEG (NEG) Urine Phencyclidine (PCP) Level NEG (NEG) Ur Amphetamine/Methamphetamine NEG (NEG) MDMA (Ecstasy) Screen NEG (NEG) Urine Benzodiazepines Screen NEG (NEG) Urine Cocaine Metabolite NEG (NEG) Urine Marijuana (THC) NEG (NEG) Laboratory results per my review. Medications Administered Medications (Trade) Dose Ordered Sig/Brenna Route Start Time Stop Time Status Last Admin Dose Admin Potassium Chloride (Klor-Con M10) 40 meq NOW STAT PO 10/20/16 16:35 10/20/16 16:37 DC 10/20/16 16:46 40 MEQ Ertapenem (Invanz Iv) 1 gm ONE STAT IV 10/20/16 18:22 10/20/16 18:28 DC 10/20/16 19:17 1 GM ED Course ED COURSE: Vital signs were reviewed and showed tachycardic The patients medical record was reviewed The above diagnostic studies were performed and reviewed. ED treatments and interventions as stated above. 1513: The patient was evaluated in room A6. A complete history and physical examination was performed. 1635: Ordered Potassium Chloride 40 meq PO. 1819: Upon reevaluation, the patient is resting comfortably.I discussed my findings with the patient and she understands and agrees with the treatment plan. Based on the patients age, coexisting illnesses, exam and lab findings the decision to treat as an inpatient was made. The patient remained stable while under my care. The patient will be evaluated for further management. 1821: Ordered Ertapenem 1 gm IV. 1826: I discussed the patients case with RADHA Cervantes. He is going to evaluate the patient for further treatment. Medical Decision Differential diagnosis: Etiologies such as mood disorder, infection, hypoglycemia, electrolyte abnormalities, cardiac sources, intracerebral event, toxicologic, neurologic, as well as others were entertained. Patient is a 31-year-old female who presents to the ER referred in by her psychiatrist again for delusions and paranoia. This is her fourth visit this month. She denies any suicidal or homicidal ideations. She does complain of pain around her catheter associated with a cloudy urine. Vitals show a mild tachycardia. No fever. CBC is unremarkable. Potassium is low at 2.9. LFTs bilirubin and TSH were normal. UA has positive nitrates, leuks, white cells along with +4 bacteria. There was greater than 30 epithelial cells. This was taken off of the suprapubic catheter. Tox was negative. Alcohol was negative. Patient was evaluated by our psychiatric critical care physician assistant. With her UA and previous review of her cultures it showed Escherichia coli and Klebsiella that were ESBL along with a pseudomonas that was fairly resistant on previous cultures. Upon review of her allergies there is no medications that can be given orally. I did give her dose of ertapenem which will cover her Escherichia coli and Klebsiella. She has not grown out pseudomonas since June. We will await cultures. Discussed with internal medicine and they will evaluated for admission/possible observation for her UTI. Potassium was repleted orally. Consults Time Called: 1823 Consulting Physician: RADHA Cervantes Returned Call: [phone] I discussed the patients case with RADHA Cervantes. He is going to evaluate the patient for further treatment. Impression Primary Impression: UTI (urinary tract infection) Additional Impressions: Hypokalemia Paranoia Delusions Scribe Attestation The scribe's documentation has been prepared under my direction and personally reviewed by me in its entirety. I confirm that the note above accurately reflects all work, treatment, procedures, and medical decision making performed by me. Departure Information Dispostion Being Evaluated By Hospitalist Referrals Darvin Lea D.O.Int.Med. (PCP) Problem Qualifiers Primary Impression: UTI (urinary tract infection) Urinary tract infection type: catheter-associated UTI Indwelling urinary catheter type: unspecified Encounter type: initial encounter Qualified Codes : T83.511A - Infection and inflammatory reaction due to indwelling urethral catheter, initial encounter; N39.0 - Urinary tract infection, site not specified"
[2016-10-20 16:30] LABS: ALKALINE PHOSPHATASE 78 U/L (45-117)
[2016-10-20] MEDS ORDERED: POTASSIUM CHLORIDE 10 MEQ TABCR PO STA (16:35)
[2016-10-20 16:47] LABS: URINE APPEARANCE CLOUDY (CLEAR); URINE BILIRUBIN NEG (NEG); URINE COLOR YELLOW; URINE EPITHELIAL CELL AUTO >30 /lpf (0-5); URINE NITRITE POS (NEG); URINE PH 7.5 (4.5-7.5); URINE SPECIFIC GRAVITY 1.012 (1.000-1.030); UROBILINOGEN NEG (NEG)
[2016-10-20 16:50] LABS: MANUAL MICROSCOPIC REQUIRED? NO; REVIEW REQ? NO
[2016-10-20 16:55] LABS: BASO % 0.4 %; BASO ABS # 0.04 K/uL (0-0.2); COMPLETE YES; EOS % 2.4 %; IG% 0.3 %; LYMPH ABS # 2.13 K/uL (1.2-3.4); MONO % 6.7 %; NEUT % 70.2 %
[2016-10-20 17:04] LABS: BENZODIAZEPINE, URINE NEG (NEG); COCAINE,URINE NEG (NEG); PHENCYCLIDINE, URINE NEG (NEG)
[2016-10-20] MEDS ORDERED: ERTAPENEM 1 GM ADDVIAL IV STA (18:22)
--- NOTE | 2016-10-20 20:34 | History and Physical ---
"History & Physical Date & Time of Service: October 20, 2016 at 20:09 Chief Complaint: Bad Hallucinations Primary Care Physician: Darvin Lea D.O.Int.Med. History of Present Illness Source: patient 31 y/o F w/Hx Spina bifida, HEAVY THREADER shunt at - 12 revisions, osteomyelitis leading to B/L LE BKA, chronic migraines, depression and bipolar disorder with psychotic features. She has a history of suprapubic catheter placement with recurrent UTIs and recent resistant infections. She was treated with an 18 day course of Ertapenem as an outpatient due to an E coli and Klebsiella UTI in conjunction with her multiple medication allergies. The pt presented today at the behest of her psychiatrist due to persistent hallucinations. When evaluated in the ER however she complained of burning around her suprapubic catheter and a UA proved +. She has not had fevers, rigors or acute back pain. She does have a headache which is more or less chronic and has had persistent wheezing recently as well due to her asthma and seasonal sensitivities. She was initially slated for the mental health unit however due to her recent history of resistant UTIs she will be treated with with IV antibiotics on the medical floor pending culture results. Past Medical/Surgical History Medical Problems: (1) Anxiety Status: Chronic (2) Bipolar 1 disorder Status: Chronic (3) Depression Status: Chronic (4) Gastroparesis Status: Chronic (5) GERD (gastroesophageal reflux disease) Status: Chronic (6) Hydrocephalus Status: Chronic (7) MRSA (methicillin resistant Staphylococcus aureus) Status: Resolved (8) Osteomyelitis Status: Resolved (9) Spina bifida Permanent Comment: Status: Chronic Family History Cancer Diabetes mellitus Lung disease Social History Smoking Status: Never Smoker Drug Use: none Marital Status: single Housing status: lives with family Occupational Status: disabled 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 Allergies Coded Allergies: Adhesives (Verified Allergy, Intermediate, TAPE- HIVES, 10/20/16) Ceftriaxone (Verified Allergy, Intermediate, rash, 10/20/16) Chlorhexidine (Verified Allergy, Intermediate, RASH, 10/20/16) Ciprofloxacin (Verified Allergy, Intermediate, hives, 10/20/16) Latex (Verified Allergy, Intermediate, hives, 09/29/16) Levofloxacin (Verified Allergy, Intermediate, rash, 10/20/16) Linezolid (Verified Allergy, Intermediate, rash, 10/20/16) Piperacillin (Verified Allergy, Intermediate, SEVERE RASH, HIVES, 09/29/16) Tazobactam (Verified Allergy, Intermediate, SEVERE RASH, HIVES, 10/20/16) Vancomycin (Verified Allergy, Intermediate, rash, 10/20/16) Tobramycin (Verified Allergy, Mild, MILD RASH ON ARM, RED FACE, 10/20/16) IMPROVED AFTER BENADRYL, TAKING REST OF DOSE Amikacin (Verified Allergy, Unknown, PER DR ROBINS,RXN WAS TO ZOSYN NOT AMKrash;hives, 10/20/16) Sulfamethoxazole w/Trimethoprim (Verified Allergy, Unknown, Hives, 10/20/16 ) Can be pretreated with 10mg Zytrec 45 min prior to admin Home Medications Scheduled Aripiprazole (Abilify), 1 TAB PO DAILY Cholecalciferol (Vitamin D), 2,000 INTER.UNIT PO DAILY Clonazepam (Klonopin), 0.5 MG PO BID Cyanocobalamin (Vitamin B-12), 500 MG PO BID Docusate Sodium (Dulcolax Stool Softener), 100 MG PO BID Docusate Sodium (Docusate Sodium), 1 CAP PO BID Ethinyl Estradiol/Norethindr (Loestrin 1.5/30-21 1.5-30 mg-Mcg), 1 TAB PO DAILY Ferrous Sulfate (Kp Ferrous Sulfate), 1 TAB PO BIDM Fluticasone Prop/Salmeterol (Advair Diskus 500/50 60 Dose), 1 PUFF INH BID Gabapentin (Gabapentin), 300 MG PO TID Hydroxyzine Hcl (Atarax), 25 MG PO QD@1200 Hyoscyamine Sulfate (Levsin), 0.125 MG PO QID Levothyroxine Sodium (Levothyroxine Sodium), 25 MG PO DAILY Linaclotide (Linzess), 290 MCG PO QAM Revloc Carbonate (Revloc Carbonate), 600 MG PO HS Revloc Carbonate (Revloc Carbonate ER), 450 MG PO QAM Meclizine Hcl (Meclizine Hcl), 1 TAB PO TID Multiple Vitamin (Multivitamin), 1 TAB PO DAILY Nortriptyline Hcl (Pamelor), 75 MG PO HS Nortriptyline Hcl (Pamelor), 25 MG PO HS Pantoprazole (Pantoprazole Sodium), 40 MG PO QAM Probiotic Product (Probiotic), 1 TAB PO BID Ranitidine (Zantac), 150 MG PO HS Sennosides (Senna Lax), 8.6 MG PO DAILY Topiramate (Topamax ), 75 MG PO BID Wound Dressings (Hydrofera Blue Foam Dress), 1 APPLN TOP DAILY Scheduled PRN Acetaminophen (Acetaminophen Extra Stren), 500-1,000 MG PO Q6H PRN for Pain Albuterol Hfa (Ventolin Hfa), 2 PUFFS INH Q4 PRN for Shortness of Breath Dihydroergotamine Mesylate (Migranal), 4 MG NA UD PRN for Migraine Hydroxyzine HCl (Hydroxyzine Pamoate), 25 MG PO Q8 PRN for Anxiety Indomethacin (Indocin), 25 MG PO TID PRN for Headache Ketorolac Tromethamine (Ketorolac Tromethamine), 10-20 MG PO UD PRN for Headache Nystatin (Topical) (Nystop), 1 APPL TOP UD PRN for SKIN IMPAIRMENT Ondansetron (Ondansetron HCl), 4 MG PO DAILY PRN for Nausea Tramadol (Ultram), 50 MG PO Q4H PRN for Pain Miscellaneous Medications Nystatin/Triamcinolone (Mycolog ||) Review of Systems Constitutional: No chills, No fever, No sweats Eyes: No eye pain, No worsening of vision ENT: No hearing loss, No nasal symptoms, No unusual epistaxis Respiratory: + wheezing, No cough, No sputum Cardiovascular: No PND, No chest pain, No orthopnea Abdomen: No nausea, No pain, No vomiting Musculoskeletal: No joint pain, No muscle pain Genitourinary - Female: + dysuria, No urinary frequency, No urinary incontinence, No urinary retention, No urinary urgency Neurologic: No memory loss, No paralysis, No weakness Psychiatric: No depression symptoms Endocrine: No fatigue Hematologic / Lymphatic: No abnormal bleeding/bruising Integumentary: No rash Allergic / Immunologic: + environmental allergies, + seasonal allergies Physical Exam Vital Signs Date Time Temp Pulse Resp B/P Pulse Ox O2 Delivery O2 Flow Rate FiO2 10/20/16 18:55 103 22 150/104 97 Room Air 10/20/16 16:56 105 24 149/101 100 Room Air 10/20/16 15:02 36.8 102 20 126/76 96 Room Air General Appearance: + pertinent finding (Obese young female - pleasant and in no distress) Head: normocephalic, atraumatic Eyes: normal inspection, PERRL, EOMI ENT: normal ENT inspection, hearing grossly normal, pharynx normal Neck: supple, no JVD Respiratory/Chest: chest non-tender, no respiratory distress, no accessory muscle use, + wheezing, + pertinent finding (Port is present) Cardiovascular: regular rate, rhythm, no edema, no gallop, no JVD, no murmur, normal peripheral pulses Abdomen/GI: normal bowel sounds, non tender, soft, + pertinent finding (No infalmmation noted around suprapubic cath site) Back: normal inspection, no CVA tenderness Extremities/Musculoskelatal: + pertinent finding 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, alert, oriented x 3 Skin: normal color, warm/dry, + pertinent finding (Chronic LE skin changes - no acute cellulitis) Diagnostics Laboratory Results Results Past 24 Hours Test 10/20/16 15:32 10/20/16 15:44 10/20/16 16:10 10/20/16 16:35 Range/Units Bedside Glucose 128 70-90 mg/dl White Blood Count 10.63 4.8-10.8 K/uL Red Blood Count 4.48 4.2-5.4 M/uL Hemoglobin 13.3 12.0-16.0 g/dL Hematocrit 42.0 37-47 % Mean Corpuscular Volume 93.8 80-100 fL Mean Corpuscular Hemoglobin 29.7 25-34 pg Mean Corpuscular Hemoglobin Concent 31.7 32-36 g/dl Platelet Count 190 130-400 K/uL Mean Platelet Volume 10.1 7.4-10.4 fL Neutrophils (%) (Auto) 70.2 % Lymphocytes (%) (Auto) 20.0 % Monocytes (%) (Auto) 6.7 % Eosinophils (%) (Auto) 2.4 % Basophils (%) (Auto) 0.4 % Neutrophils # (Auto) 7.46 1.4-6.5 K/uL Lymphocytes # (Auto) 2.13 1.2-3.4 K/uL Monocytes # (Auto) 0.71 0.11-0.59 K/uL Eosinophils # (Auto) 0.26 0-0.5 K/uL Basophils # (Auto) 0.04 0-0.2 K/uL RDW Standard Deviation 47.4 36.4-46.3 fL RDW Coefficient of Variation 13.8 11.5-14.5 % Immature Granulocyte % (Auto) 0.3 % Immature Granulocyte # (Auto) 0.03 0.00-0.02 K/uL Red Blood Cell Morphology Unremarkable Sodium Level 144 136-145 mmol/L Potassium Level 2.9 3.5-5.1 mmol/L Chloride Level 115 98-107 mmol/L Carbon Dioxide Level 20 21-32 mmol/L Anion Gap 9.0 3-11 mmol/L Blood Urea Nitrogen 11 7-18 mg/dl Creatinine 0.80 0.60-1.20 mg/dl Estimated GFR () 115.5 Estimated GFR (Non- 99.6 BUN/Creatinine Ratio 13.8 10-20 Random Glucose 117 70-99 mg/dl Calcium Level 8.4 8.5-10.1 mg/dl Total Bilirubin 0.2 0.2-1 mg/dl Direct Bilirubin < 0.1 0-0.2 mg/dl Aspartate Amino Transf (AST/SGOT) 12 15-37 U/L Alanine Aminotransferase (ALT/SGPT) 24 12-78 U/L Alkaline Phosphatase 78 45-117 U/L Total Protein 7.3 6.4-8.2 gm/dl Albumin 2.9 3.4-5.0 gm/dl Thyroid Stimulating Hormone (TSH) 2.940 0.300-4.500 uIu/ml Revloc Level 1.1 0.6-1.2 mMOL/L Ethyl Alcohol mg/dL < 3.0 0-3 mg/dl Urine Color YELLOW Urine Appearance CLOUDY CLEAR Urine pH 7.5 4.5-7.5 Urine Specific [place] 1.012 1.000-1.030 Urine Protein NEG NEG Urine Glucose (UA) NEG NEG Urine Ketones NEG NEG Urine Occult Blood 3+ NEG Urine Nitrite POS NEG Urine Bilirubin NEG NEG Urine Urobilinogen NEG NEG Urine Leukocyte Esterase MODERATE NEG Urine WBC (Auto) 10-30 0-5 /hpf Urine RBC (Auto) >30 0-4 /hpf Urine Hyaline Casts (Auto) 5-10 0-5 /lpf Urine Epithelial Cells (Auto) >30 0-5 /lpf Urine Bacteria (Auto) 4+ NEG Urine Opiates Screen NEG NEG Urine Methadone, Qualitative NEG NEG Urine Barbiturates NEG NEG Urine Phencyclidine (PCP) Level NEG NEG Ur Amphetamine/Methamphetamine NEG NEG MDMA (Ecstasy) Screen NEG NEG Urine Benzodiazepines Screen NEG NEG Urine Cocaine Metabolite NEG NEG Urine Marijuana (THC) NEG NEG Impression Assessment and Plan 31 y/o F w/Hx Spina bifida, HEAVY THREADER shunt at - 12 revisions, osteomyelitis leading to B/L LE BKA, chronic migraines, depression and bipolar disorder with psychotic features. She has a history of suprapubic catheter placement with recurrent UTIs and recent resistant infections. She was treated with an 18 day course of Ertapenem as an outpatient due to an E coli and Klebsiella UTI in conjunction with her multiple medication allergies. The pt presented today at the behest of her psychiatrist due to persistent hallucinations. When evaluated in the ER however she complained of burning around her suprapubic catheter and a UA proved +. She has not had fevers, rigors or acute back pain. She does have a headache which is more or less chronic and has had persistent wheezing recently as well due to her asthma and seasonal sensitivities. She was initially slated for the mental health unit however due to her recent history of resistant UTIs she will be treated with with IV antibiotics on the medical floor pending culture results. 1) Hallucinations - will continue her current psychoactive meds pending reevaluation by her psychiatrist for possible adjustment - consider transfer to mental health if urine culture negative or easily treated - cont Abilify, check Revloc levels, 2) UTI - started back on Ertapenem pending culture results due to extensive allergies - she recently was OKd to use PCN-based antibiotics in conjunction with Zyrtec per her MD at [facility] although we would want to verify this 3) Asthma / wheezing - Albuterol provided - can start on a course of steroids if needed but may exacerbate her psychosis 4) Migraines - chronic - cont Topamax - responds to NSAIDS - does not prefer narcotics Full code - Heparin prophylaxis Total time for this admit including review of extensive records, labs, meds - discussion with ER attending and pt / mother - 45 min Level of Care Med/Surg Resuscitation Status FULL RESUSCITATION VTE Prophylaxis Given or contraindicated: Unfractionated heparin SQ"
[2016-10-20] MEDS ORDERED: ALBUTEROL 0.083% NEBU SOLN 3 ML VIAL INH ONE (20:41)
[2016-10-20] MEDS ORDERED: ALBUTEROL 0.083% NEBU SOLN 3 ML VIAL INH PRN (20:45)
[2016-10-20] MEDS ORDERED: INDOMETHACIN 25 MG CAP PO PRN (20:45)
[2016-10-20] MEDS: FLUTICASONE/SALMETEROL (ADVAIR) 500/50 INH 14 PUFF INH SCH (21:40)
[2016-10-20] MEDS: DOCUSATE SODIUM 100 MG CAP PO SCH (21:40)
[2016-10-20] MEDS: GABAPENTIN 300 MG CAP PO SCH (21:41)
[2016-10-20] MEDS: LACTOBACILLUS ACIDOPHILUS (FLORANEX) TAB PO SCH (21:41)
[2016-10-20] MEDS: CLONAZEPAM 0.5 MG TAB PO SCH (21:41)
[2016-10-20] MEDS: RANITIDINE HCL 150 MG TAB PO SCH (21:41)
[2016-10-20] MEDS ORDERED: NURSING VERBAL MED ORDER ONE (22:00)
[2016-10-20 22:20] VITALS: BP 139/84; PULSE 101; TEMP 36.5; O2SAT 98; Ht 119.4 cm; Wt 110.6 kg
[2016-10-20] MEDS ORDERED: TOPIRAMATE 25 MG TAB PO ONE (22:30)
[2016-10-20] MEDS ORDERED: HYOSCYAMINE SULFATE 0.125 MG SL TAB PO ONE (22:30)
[2016-10-20] MEDS ORDERED: NORTRIPTYLINE HCL 25 MG CAP PO ONE (22:30)
[2016-10-20] MEDS: LITHIUM CARBONATE 300 MG TAB PO SCH (23:21)
[2016-10-20] MEDS: LINZESS~ORDER AWAITING ACTION SCH (23:32)
[2016-10-21] MEDS: LEVOTHYROXINE 25 MCG TAB PO SCH (05:46)
[2016-10-21 07:42] VITALS: BP 83/52; PULSE 98; TEMP 36.5; O2SAT 96
[2016-10-21] MEDS ORDERED: LITHIUM CARBONATE 450 MG TABCR PO SCH (08:00)
[2016-10-21] MEDS ORDERED: MAGNESIUM SULFATE 1GM / D5W 1 GM in PREMIXED IN D5W 100 ML IV ONE (08:30)
[2016-10-21] MEDS: FLUTICASONE/SALMETEROL (ADVAIR) 500/50 INH 14 PUFF INH SCH ×2 (08:45→21:09)
[2016-10-21] MEDS: MECLIZINE HCL 12.5 MG TAB PO SCH ×3 (09:01→21:14)
[2016-10-21] MEDS: ARIPIprazole TAB 15 MG TAB PO SCH (09:01)
[2016-10-21] MEDS: FERROUS SULFATE 325 MG TAB PO SCH ×2 (09:02→17:02)
[2016-10-21] MEDS: TOPIRAMATE 25 MG TAB PO SCH ×2 (09:02→21:12)
[2016-10-21] MEDS: CHOLECALCIFEROL 1000 INTER.UNIT TAB PO SCH (09:03)
[2016-10-21] MEDS: PANTOprazole SOD 40 MG TAB PO SCH (09:03)
[2016-10-21] MEDS: DOCUSATE SODIUM 100 MG CAP PO SCH ×2 (09:03→21:13)
[2016-10-21] MEDS: HYOSCYAMINE SULFATE 0.125 MG SL TAB PO SCH ×4 (09:03→21:11)
[2016-10-21] MEDS: SENNA 8.6 MG TAB PO SCH (09:04)
[2016-10-21] MEDS: GABAPENTIN 300 MG CAP PO SCH ×3 (09:04→21:13)
[2016-10-21] MEDS: LACTOBACILLUS ACIDOPHILUS (FLORANEX) TAB PO SCH ×2 (09:04→21:14)
[2016-10-21] MEDS: LINZESS~ORDER AWAITING ACTION SCH ×2 (09:05→15:38)
[2016-10-21] MEDS: CYANOCOBALAMIN 500 MCG TAB (VIT B-12) PO SCH ×2 (09:06→21:15)
[2016-10-21] MEDS: CLONAZEPAM 0.5 MG TAB PO SCH ×2 (09:19→21:22)
[2016-10-21] MEDS: POTASSIUM CHLR 10 MEQ / WTR 10 MEQ in PREMIXED WATER 100 ML IV SCH ×3 (09:20→12:10)
[2016-10-21 10:06] VITALS: BP 122/78; PULSE 98
[2016-10-21] MEDS: hydrOXYzine HCL 25 MG TAB PO SCH (12:11)
[2016-10-21 12:16] LABS: BUN/CREATININE RATIO 16.9 (10-20); CALCIUM 8.7 mg/dl (8.5-10.1); CREATININE 0.63 mg/dl (0.60-1.20)
[2016-10-21] MEDS: ACETAMINOPHEN 500 MG TAB PO PRN (12:30)
[2016-10-21] MEDS ORDERED: KETOROLAC TROMETHAMINE 30 MG/ML VIAL IV STA (12:47)
[2016-10-21] MEDS ORDERED: MoRPHine SULFATE 2 MG/ML CARP IV PRN (13:00)
[2016-10-21] MEDS ORDERED: MoRPHine SULFATE 4 MG/ML 1 ML CARP\\VIAL IV PRN (13:00)
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
[2016-10-21 15:00] VITALS: BP 116/73; PULSE 107; TEMP 36.4; O2SAT 97
--- NOTE | 2016-10-21 15:36 | Progress Note ---
Subjective Date of Service: October 21, 2016. Subjective pt states she was having visual hallucinations last evening but no longer, complaints of dull ache pain in her suprapubic area worse with movement and palpation, 6/10 Problem List Medical Problems: (1) Acute pyelonephritis Status: Acute (2) Allergic reaction Status: Acute (3) Allergic reaction Status: Acute (4) Complicated urinary tract infection Status: Acute (5) Delusions Status: Acute (6) Gabapentin overdose Status: Acute (7) Hypokalemia Status: Acute (8) Intractable headache Status: Acute (9) Low back pain Status: Acute (10) Lower abdominal pain Status: Acute (11) Lower abdominal pain Status: Acute (12) Mood disorder Status: Acute (13) Mood disorder Status: Acute (14) Nausea Status: Acute (15) Paranoia Status: Acute (16) Pelvic pain Status: Acute (17) Right flank pain Status: Acute (18) Right leg pain Status: Acute (19) Self-harming behavior Status: Acute (20) Shunt malfunction Status: Acute (21) Shunt malfunction Status: Acute (22) Suicidal ideation Status: Acute (23) Suicidal ideation Status: Acute (24) Suprapubic pain Status: Acute (25) Urinary tract infection Status: Acute (26) Urinary tract infection Status: Acute (27) UTI (urinary tract infection) Status: Acute (28) UTI (urinary tract infection) Status: Acute (29) Weakness Status: Acute Review of Systems Constitutional: + weakness, No chills, No fever Eyes: No eye pain, No worsening of vision ENT: No hearing loss, No unusual epistaxis Respiratory: No cough, No dyspnea on exertion, No shortness of breath Cardiac: No chest pain, No edema Abdomen: + pain, No constipation, No diarrhea, No nausea, No vomiting Neurologic: + weakness, No memory loss, No paralysis Psychiatric: + anxiety, + depression symptoms, + problem reported ( hallucinations) Objective Vital Signs Date Time Temp Pulse Resp B/P Pulse Ox O2 Delivery O2 Flow Rate FiO2 10/21/16 07:42 36.5 98 22 83/52 96 Room Air 10/20/16 22:20 36.5 101 20 139/84 98 Room Air 10/20/16 22:09 106 20 97 10/20/16 20:57 106 22 134/100 97 Room Air 10/20/16 18:55 103 22 150/104 97 Room Air 10/20/16 16:56 105 24 149/101 100 Room Air 10/20/16 15:02 36.8 102 20 126/76 96 Room Air Physical Exam General Appearance: + moderate distress, + obese Eyes: PERRL, EOMI Neck: supple, no JVD Respiratory/Chest: chest non-tender, lungs clear, normal breath sounds Cardiovascular: regular rate, rhythm, no JVD, no murmur Abdomen: normal bowel sounds, soft, + abnormal bowel sounds, + guarding, + tenderness Neurologic/Psychiatric: alert, oriented x 3 Skin: normal color, warm/dry, no rash Laboratory Results Last 24 Hours Test 10/20/16 15:32 10/20/16 15:44 10/20/16 16:10 10/20/16 16:35 Bedside Glucose 128 mg/dl White Blood Count 10.63 K/uL Red Blood Count 4.48 M/uL Hemoglobin 13.3 g/dL Hematocrit 42.0 % Mean Corpuscular Volume 93.8 fL Mean Corpuscular Hemoglobin 29.7 pg Mean Corpuscular Hemoglobin Concent 31.7 g/dl Platelet Count 190 K/uL Mean Platelet Volume 10.1 fL Neutrophils (%) (Auto) 70.2 % Lymphocytes (%) (Auto) 20.0 % Monocytes (%) (Auto) 6.7 % Eosinophils (%) (Auto) 2.4 % Basophils (%) (Auto) 0.4 % Neutrophils # (Auto) 7.46 K/uL Lymphocytes # (Auto) 2.13 K/uL Monocytes # (Auto) 0.71 K/uL Eosinophils # (Auto) 0.26 K/uL Basophils # (Auto) 0.04 K/uL RDW Standard Deviation 47.4 fL RDW Coefficient of Variation 13.8 % Immature Granulocyte % (Auto) 0.3 % Immature Granulocyte # (Auto) 0.03 K/uL Red Blood Cell Morphology Unremarkable Sodium Level 144 mmol/L Potassium Level 2.9 mmol/L Chloride Level 115 mmol/L Carbon Dioxide Level 20 mmol/L Anion Gap 9.0 mmol/L Blood Urea Nitrogen 11 mg/dl Creatinine 0.80 mg/dl Estimated GFR () 115.5 Estimated GFR (Non- 99.6 BUN/Creatinine Ratio 13.8 Random Glucose 117 mg/dl Calcium Level 8.4 mg/dl Total Bilirubin 0.2 mg/dl Direct Bilirubin < 0.1 mg/dl Aspartate Amino Transf (AST/SGOT) 12 U/L Alanine Aminotransferase (ALT/SGPT) 24 U/L Alkaline Phosphatase 78 U/L Total Protein 7.3 gm/dl Albumin 2.9 gm/dl Thyroid Stimulating Hormone (TSH) 2.940 uIu/ml [place] Level 1.1 mMOL/L Ethyl Alcohol mg/dL < 3.0 mg/dl Urine Color YELLOW Urine Appearance CLOUDY Urine pH 7.5 Urine Specific [place] 1.012 Urine Protein NEG Urine Glucose (UA) NEG Urine Ketones NEG Urine Occult Blood 3+ Urine Nitrite POS Urine Bilirubin NEG Urine Urobilinogen NEG Urine Leukocyte Esterase MODERATE Urine WBC (Auto) 10-30 /hpf Urine RBC (Auto) >30 /hpf Urine Hyaline Casts (Auto) 5-10 /lpf Urine Epithelial Cells (Auto) >30 /lpf Urine Bacteria (Auto) 4+ Urine Opiates Screen NEG Urine Methadone, Qualitative NEG Urine Barbiturates NEG Urine Phencyclidine (PCP) Level NEG Ur Amphetamine/Methamphetamine NEG MDMA (Ecstasy) Screen NEG Urine Benzodiazepines Screen NEG Urine Cocaine Metabolite NEG Urine Marijuana (THC) NEG Assessment and Plan 31 y/o F w/Hx Spina bifida, [employer] shunt at - encephalopathy with psychotic features, found to have uti associated with suprapubic catheter poa Encephalopathy, Hallucinations - will continue her current psychoactive meds - consider transfer to mental health if urine culture negative or easily treated - cont Abilify, [place] levels, UTI - started on Ertapenem supropubic pain maybe from this Asthma no clinical wheezing- Albuterol Migraines - chronic mild and persistent- cont Topamax Full code - Heparin prophylaxis
[2016-10-21] MEDS ORDERED: NURSING VERBAL MED ORDER ONE (19:00)
[2016-10-21] MEDS: ONDANSETRON INJ 2 MG/ML 2 ML VIAL IV PRN (19:49)
[2016-10-21] MEDS ORDERED: ERTAPENEM IV 1 GM in SODIUM CHLOR 0.9% AD-VAN 50ML 50 ML IV SCH (20:00)
[2016-10-21] MEDS: NORTRIPTYLINE HCL 25 MG CAP PO SCH (21:10)
[2016-10-21] MEDS: RANITIDINE HCL 150 MG TAB PO SCH (21:10)
[2016-10-21] MEDS: LITHIUM CARBONATE 300 MG TAB PO SCH (21:11)
[2016-10-22 00:16] VITALS: BP 119/75; PULSE 87; TEMP 36.4; O2SAT 96
[2016-10-22] MEDS: LEVOTHYROXINE 25 MCG TAB PO SCH (06:15)
[2016-10-22 07:12] LABS: BUN/CREATININE RATIO 13.4 (10-20); CREATININE 0.62 mg/dl (0.60-1.20); POTASSIUM 4.2 mmol/L (3.5-5.1)
[2016-10-22 07:16] VITALS: BP 107/71; PULSE 90; TEMP 36.5; O2SAT 98
[2016-10-22] MEDS: FLUTICASONE/SALMETEROL (ADVAIR) 500/50 INH 14 PUFF INH SCH ×2 (07:54→21:00)
[2016-10-22] MEDS: HYOSCYAMINE SULFATE 0.125 MG SL TAB PO SCH ×4 (07:55→21:03)
[2016-10-22] MEDS: CYANOCOBALAMIN 500 MCG TAB (VIT B-12) PO SCH ×2 (07:55→21:04)
[2016-10-22] MEDS: FERROUS SULFATE 325 MG TAB PO SCH ×2 (07:56→17:06)
[2016-10-22] MEDS: PANTOprazole SOD 40 MG TAB PO SCH (07:56)
[2016-10-22] MEDS: TOPIRAMATE 25 MG TAB PO SCH ×2 (07:56→21:04)
[2016-10-22] MEDS: GABAPENTIN 300 MG CAP PO SCH ×3 (07:56→21:04)
[2016-10-22] MEDS: SENNA 8.6 MG TAB PO SCH (07:57)
[2016-10-22] MEDS: MECLIZINE HCL 12.5 MG TAB PO SCH ×3 (07:57→21:03)
[2016-10-22] MEDS: CHOLECALCIFEROL 1000 INTER.UNIT TAB PO SCH (07:57)
[2016-10-22] MEDS: LACTOBACILLUS ACIDOPHILUS (FLORANEX) TAB PO SCH ×2 (07:58→21:03)
[2016-10-22] MEDS: ARIPIprazole TAB 15 MG TAB PO SCH (07:58)
[2016-10-22] MEDS: DOCUSATE SODIUM 100 MG CAP PO SCH ×2 (08:00→21:03)
[2016-10-22] MEDS ORDERED: LINACLOTIDE 290 MCG PO SCH (08:00)
[2016-10-22] MEDS: CLONAZEPAM 0.5 MG TAB PO SCH ×2 (08:04→21:11)
[2016-10-22] MEDS ORDERED: NURSING DECISION MEDICATION ORDER SCH (11:45)
[2016-10-22] MEDS: hydrOXYzine HCL 25 MG TAB PO SCH (12:20)
[2016-10-22 15:02] VITALS: BP 112/71; PULSE 93; TEMP 36.5; O2SAT 100
--- NOTE | 2016-10-22 16:10 | Progress Note ---
Subjective Date of Service: October 22, 2016. Subjective this pt is still having visual hallucinations at night of bugs crawling on [place] and a waterfall in place of the TV, during the day she is without these issues, still with some lower abdominal pain, dull 2/10 worse with movement or with exam, otherwise doing well with exception of minor constipation and feeling of bloating Problem List Medical Problems: (1) Acute pyelonephritis Status: Acute (2) Allergic reaction Status: Acute (3) Allergic reaction Status: Acute (4) Complicated urinary tract infection Status: Acute (5) Delusions Status: Acute (6) Gabapentin overdose Status: Acute (7) Hypokalemia Status: Acute (8) Intractable headache Status: Acute (9) Low back pain Status: Acute (10) Lower abdominal pain Status: Acute (11) Lower abdominal pain Status: Acute (12) Mood disorder Status: Acute (13) Mood disorder Status: Acute (14) Nausea Status: Acute (15) Paranoia Status: Acute (16) Pelvic pain Status: Acute (17) Right flank pain Status: Acute (18) Right leg pain Status: Acute (19) Self-harming behavior Status: Acute (20) Shunt malfunction Status: Acute (21) Shunt malfunction Status: Acute (22) Suicidal ideation Status: Acute (23) Suicidal ideation Status: Acute (24) Suprapubic pain Status: Acute (25) Urinary tract infection Status: Acute (26) Urinary tract infection Status: Acute (27) UTI (urinary tract infection) Status: Acute (28) UTI (urinary tract infection) Status: Acute (29) Weakness Status: Acute Review of Systems Constitutional: No chills, No fever Respiratory: No cough, No shortness of breath Cardiac: No chest pain, No edema Abdomen: + constipation, + pain, No diarrhea, No nausea, No vomiting Female : No dysuria, No hematuria Psychiatric: + anxiety, + depression symptoms Objective Vital Signs Date Time Temp Pulse Resp B/P Pulse Ox O2 Delivery O2 Flow Rate FiO2 10/22/16 07:16 36.5 90 20 107/71 98 Room Air 10/22/16 00:16 36.4 87 20 119/75 96 Room Air 10/22/16 00:00 Room Air 10/21/16 20:00 Room Air 10/21/16 16:00 Room Air 10/21/16 15:00 36.4 107 20 116/73 97 Room Air 10/21/16 10:06 98 122/78 10/21/16 09:00 Room Air 10/21/16 07:42 36.5 98 22 83/52 96 Room Air Physical Exam General Appearance: + mild distress, + obese Eyes: PERRL, EOMI Neck: supple, thyroid normal Respiratory/Chest: chest non-tender, lungs clear, normal breath sounds Cardiovascular: regular rate, rhythm, no JVD Abdomen: normal bowel sounds, soft, + guarding, + tenderness Neurologic/Psychiatric: alert, oriented x 3 Laboratory Results Last 24 Hours Test 10/21/16 09:28 10/22/16 06:00 Sodium Level 144 mmol/L 143 mmol/L Potassium Level 4.0 mmol/L 4.2 mmol/L Chloride Level 114 mmol/L 114 mmol/L Carbon Dioxide Level 24 mmol/L 22 mmol/L Anion Gap 6.0 mmol/L 7.0 mmol/L Blood Urea Nitrogen 11 mg/dl 8 mg/dl Creatinine 0.63 mg/dl 0.62 mg/dl Est Creatinine Clear Calc Drug Dose 111.5 ml/min 113.3 ml/min Estimated GFR () 140.5 141.2 Estimated GFR (Non- 121.2 121.9 BUN/Creatinine Ratio 16.9 13.4 Random Glucose 97 mg/dl 84 mg/dl Calcium Level 8.7 mg/dl 8.0 mg/dl [place] Level 1.1 mMOL/L Chemistry Specimen Hemolysis Assessment and Plan 31 y/o F w/Hx Spina bifida, [employer] shunt at - encephalopathy with psychotic features, found to have uti associated with suprapubic catheter poa Encephalopathy, Hallucinations - will continue her current psychoactive meds increase night time- consider transfer to mental health if urine culture negative or easily treated - cont Abilify, [place] levels, UTI - started on Ertapenem suprapubic pain maybe from this, initially pseudomonas in past resistnet to imipenem, was sensitive to ceftazidime will change until cultures back, in the past used Zerbaxa 1.5 gms iv q 8, will await sensitivities before having ID consult Asthma no sob- Albuterol Migraines - resolved 10/22- cont Topamax Full code - Heparin prophylaxis
[2016-10-22] MEDS: TRAMADOL HCL 50 MG TAB PO PRN (17:06)
[2016-10-22] MEDS: CEFTAZIDIME IV 1 GM in DEXTROSE 5% ADD-VANTAGE 50ML 50 ML IV SCH ×2 (17:08→23:28)
[2016-10-22] MEDS: LITHIUM CARBONATE 300 MG TAB PO SCH (21:04)
[2016-10-22] MEDS: NORTRIPTYLINE HCL 25 MG CAP PO SCH (21:05)
[2016-10-22] MEDS: RANITIDINE HCL 150 MG TAB PO SCH (21:05)
[2016-10-22 23:35] VITALS: BP 99/67; PULSE 100; TEMP 36.4; O2SAT 97
[2016-10-23] MEDS: LEVOTHYROXINE 25 MCG TAB PO SCH (06:12)
[2016-10-23 07:16] VITALS: BP 113/75; PULSE 87; TEMP 36.5; O2SAT 100
[2016-10-23] MEDS: LINACLOTIDE 290 MCG PO SCH (07:33)
[2016-10-23] MEDS: LACTOBACILLUS ACIDOPHILUS (FLORANEX) TAB PO SCH ×2 (07:35→19:07)
[2016-10-23] MEDS: FLUTICASONE/SALMETEROL (ADVAIR) 500/50 INH 14 PUFF INH SCH ×2 (07:35→20:00)
[2016-10-23] MEDS: CEFTAZIDIME IV 1 GM in DEXTROSE 5% ADD-VANTAGE 50ML 50 ML IV SCH (07:35)
[2016-10-23] MEDS: GABAPENTIN 300 MG CAP PO SCH ×3 (07:35→19:08)
[2016-10-23] MEDS: PANTOprazole SOD 40 MG TAB PO SCH (07:36)
[2016-10-23] MEDS: TOPIRAMATE 25 MG TAB PO SCH ×2 (07:36→19:09)
[2016-10-23] MEDS: MECLIZINE HCL 12.5 MG TAB PO SCH ×3 (07:36→19:05)
[2016-10-23] MEDS: HYOSCYAMINE SULFATE 0.125 MG SL TAB PO SCH ×4 (07:37→19:07)
[2016-10-23] MEDS: FERROUS SULFATE 325 MG TAB PO SCH ×2 (07:37→17:16)
[2016-10-23] MEDS: CYANOCOBALAMIN 500 MCG TAB (VIT B-12) PO SCH ×2 (07:37→19:09)
[2016-10-23] MEDS: SENNA 8.6 MG TAB PO SCH (07:37)
[2016-10-23] MEDS: ARIPIprazole TAB 15 MG TAB PO SCH (07:38)
[2016-10-23] MEDS: CHOLECALCIFEROL 1000 INTER.UNIT TAB PO SCH (07:38)
[2016-10-23] MEDS: NORETHINDRONE PO SCH (07:39)
[2016-10-23] MEDS: ETHINYL ESTRAD PO SCH (07:39)
[2016-10-23] MEDS: DOCUSATE SODIUM 100 MG CAP PO SCH ×2 (07:39→19:06)
[2016-10-23] MEDS: CLONAZEPAM 0.5 MG TAB PO SCH ×2 (07:41→19:11)
--- NOTE | 2016-10-23 08:55 | Progress Note ---
Subjective Date of Service: October 23, 2016. Subjective this pt continues to have hallucinations at night, she sees bugs crawling on wall, she has multidrug resistant pseudomonas, she is feeling otherwise without much distress, she seems to be coping with her hallucinations Problem List Medical Problems: (1) Acute pyelonephritis Status: Acute (2) Allergic reaction Status: Acute (3) Allergic reaction Status: Acute (4) Complicated urinary tract infection Status: Acute (5) Delusions Status: Acute (6) Gabapentin overdose Status: Acute (7) Hypokalemia Status: Acute (8) Intractable headache Status: Acute (9) Low back pain Status: Acute (10) Lower abdominal pain Status: Acute (11) Lower abdominal pain Status: Acute (12) Mood disorder Status: Acute (13) Mood disorder Status: Acute (14) Nausea Status: Acute (15) Paranoia Status: Acute (16) Pelvic pain Status: Acute (17) Right flank pain Status: Acute (18) Right leg pain Status: Acute (19) Self-harming behavior Status: Acute (20) Shunt malfunction Status: Acute (21) Shunt malfunction Status: Acute (22) Suicidal ideation Status: Acute (23) Suicidal ideation Status: Acute (24) Suprapubic pain Status: Acute (25) Urinary tract infection Status: Acute (26) Urinary tract infection Status: Acute (27) UTI (urinary tract infection) Status: Acute (28) UTI (urinary tract infection) Status: Acute (29) Weakness Status: Acute Review of Systems Constitutional: No chills, No fever Eyes: No eye pain, No worsening of vision Respiratory: No cough, No shortness of breath Cardiac: No chest pain, No edema Abdomen: No constipation, No diarrhea, No nausea, No pain, No vomiting Musculoskeletal: No joint pain, No muscle pain, No swelling Objective Vital Signs Date Time Temp Pulse Resp B/P Pulse Ox O2 Delivery O2 Flow Rate FiO2 10/23/16 08:00 Room Air 10/23/16 07:16 36.5 87 18 113/75 100 10/23/16 00:00 Room Air 10/22/16 23:35 36.4 100 20 99/67 97 Room Air 10/22/16 15:55 Room Air 10/22/16 15:02 36.5 93 18 112/71 100 Room Air Physical Exam General Appearance: + mild distress, + obese Neck: supple, no JVD Respiratory/Chest: chest non-tender, lungs clear, normal breath sounds Cardiovascular: regular rate, rhythm, no murmur Abdomen: normal bowel sounds, non tender, soft Extremities: no pedal edema, no calf tenderness Neurologic/Psychiatric: alert, oriented x 3 Assessment and Plan 31 y/o F w/Hx Spina bifida, [employer] shunt at - encephalopathy with psychotic features, found to have uti associated with suprapubic catheter poa Encephalopathy, Hallucinations - will continue her current psychoactive meds increase night time- consider transfer to mental health if urine culture negative or easily treated - cont Abilify, [place] levels, UTI - started on Ertapenem suprapubic pain maybe from this, MDR pseudomonas, in the past used Zerbaxa 1.5 gms iv q 8, will start pending ID consult Asthma quiescent Albuterol Migraines - minor - cont Topamax Full code - Heparin prophylaxis
[2016-10-23] MEDS ORDERED: [UNRECOGNIZED DRUG - OTHER] PRN (09:45)
[2016-10-23] MEDS: TAZOBACTAM IV SCH ×2 (10:24→18:37)
[2016-10-23] MEDS: CEFTOLOZANE IV SCH ×2 (10:24→18:37)
[2016-10-23] MEDS: DEXTROSE 5% IV SCH ×2 (10:24→18:37)
[2016-10-23] MEDS: ONDANSETRON INJ 2 MG/ML 2 ML VIAL IV PRN (11:30)
[2016-10-23] MEDS: hydrOXYzine HCL 25 MG TAB PO SCH (11:34)
[2016-10-23 14:52] VITALS: BP 103/70; PULSE 101; TEMP 36.5; O2SAT 96
[2016-10-23] MEDS: ACETAMINOPHEN 500 MG TAB PO PRN (15:15)
[2016-10-23] MEDS: hydrOXYzine HCL 25 MG TAB PO PRN (19:10)
[2016-10-23] MEDS: LITHIUM CARBONATE 300 MG TAB PO SCH (19:58)
[2016-10-23] MEDS: RANITIDINE HCL 150 MG TAB PO SCH (19:59)
[2016-10-23] MEDS: NORTRIPTYLINE HCL 25 MG CAP PO SCH (19:59)
--- NOTE | 2016-10-23 21:43 | Medical Consult ---
Consultation Date of Consultation: October 23, 2016. Attending Physician: George Powell M.D. Reason for Consultation: Resistant Pseudomonas History of Present Illness 31-year-old female well known to the Infectious Disease service, with history of spina bifida, indwelling Meade catheter with recurrent urinary tract infections with multi-drug resistant organisms, status post recent treatment with ertapenem for another urinary tract infection, was referred for admission by Psychiatry because of hallucinations. Upon further workup, she was found to have evidence of recurrent urinary tract infection, and urine culture now growing highly resistant Pseudomonas aeruginosa. She has been started on IV Zerbaxa which she has been tolerating thus far. No report of significant fever chills or urinary complaints. Past Medical/Surgical History Medical Problems: (1) Acute pyelonephritis Status: Acute (2) Allergic reaction Status: Acute (3) Allergic reaction Status: Acute (4) Complicated urinary tract infection Status: Acute (5) Delusions Status: Acute (6) Gabapentin overdose Status: Acute (7) Hypokalemia Status: Acute (8) Intractable headache Status: Acute (9) Low back pain Status: Acute (10) Lower abdominal pain Status: Acute (11) Lower abdominal pain Status: Acute (12) Mood disorder Status: Acute (13) Mood disorder Status: Acute (14) Nausea Status: Acute (15) Paranoia Status: Acute (16) Pelvic pain Status: Acute (17) Right flank pain Status: Acute (18) Right leg pain Status: Acute (19) Self-harming behavior Status: Acute (20) Shunt malfunction Status: Acute (21) Shunt malfunction Status: Acute (22) Suicidal ideation Status: Acute (23) Suicidal ideation Status: Acute (24) Suprapubic pain Status: Acute (25) Urinary tract infection Status: Acute (26) Urinary tract infection Status: Acute (27) UTI (urinary tract infection) Status: Acute (28) UTI (urinary tract infection) Status: Acute (29) Weakness Status: Acute Medical Problems: (1) Allergic reaction caused by a drug (2) Anxiety (3) Bipolar 1 disorder (4) Depression (5) Gastroparesis (6) GERD (gastroesophageal reflux disease) (7) Hydrocephalus (8) Intractable headache (9) Migraines (10) MRSA (methicillin resistant Staphylococcus aureus) (11) Osteomyelitis (12) Shunt placement with revision x8 (13) Spina bifida (14) UTI (urinary tract infection) Surgical Problems: (1) S/P BKA (below knee amputation) bilateral Family History Cancer Diabetes mellitus Lung disease Social History Smoking Status: Never Smoker Drug Use: none Marital Status: single Housing Status: lives with family Occupation Status: disabled Allergies Coded Allergies: Adhesives (Verified Allergy, Intermediate, TAPE- HIVES, 10/20/16) Ceftriaxone (Verified Allergy, Intermediate, rash, 10/20/16) Chlorhexidine (Verified Allergy, Intermediate, RASH, 10/20/16) Ciprofloxacin (Verified Allergy, Intermediate, hives, 10/20/16) Latex (Verified Allergy, Intermediate, hives, 09/29/16) Levofloxacin (Verified Allergy, Intermediate, rash, 10/20/16) Linezolid (Verified Allergy, Intermediate, rash, 10/20/16) Piperacillin (Verified Allergy, Intermediate, SEVERE RASH, HIVES, 09/29/16) Tazobactam (Verified Allergy, Intermediate, SEVERE RASH, HIVES, 10/20/16) Vancomycin (Verified Allergy, Intermediate, rash, 10/20/16) Tobramycin (Verified Allergy, Mild, MILD RASH ON ARM, RED FACE, 10/20/16) IMPROVED AFTER BENADRYL, TAKING REST OF DOSE Amikacin (Verified Allergy, Unknown, PER DR ROBINS,RXN WAS TO ZOSYN NOT AMKrash;hives, 10/20/16) Sulfamethoxazole w/Trimethoprim (Verified Allergy, Unknown, Hives, 10/20/16 ) Can be pretreated with 10mg Zytrec 45 min prior to admin Current Inpatient Medications Current Inpatient Medications Medications (Trade) Dose Ordered Sig/Brenna Route Start Time Stop Time Status Last Admin Dose Admin Aripiprazole (Abilify Tab) 30 mg DAILY PO 10/21/16 08:00 11/20/16 08:59 10/23/16 07:38 30 MG Clonazepam (Klonopin Tab) 0.5 mg BID PO 10/20/16 21:00 11/19/16 20:59 10/23/16 19:11 0.5 MG Cyanocobalamin (Vitamin B-12 Tab) 250 mcg BID PO 10/20/16 21:00 11/19/16 20:59 10/23/16 19:09 250 MCG Docusate Sodium (coLACE CAP) 100 mg BID PO 10/20/16 21:00 11/19/16 20:59 10/23/16 19:06 100 MG Salmeterol Xinafoate/ Fluticasone (Advair Diskus 500/50 Inh) 1 puff BID INH 10/20/16 21:00 11/19/16 20:59 10/23/16 07:35 1 PUFF Gabapentin (Neurontin Cap) 300 mg TID PO 10/20/16 21:00 11/19/16 20:59 10/23/16 19:08 300 MG Hydroxyzine HCl (Vistaril Tab) 25 mg QD@1200 PO 10/21/16 12:00 11/20/16 11:59 10/23/16 11:34 25 MG Hyoscyamine Sulfate (Levsin Tab) 0.125 mg QID PO 10/21/16 08:00 11/20/16 08:59 10/23/16 19:07 0.125 MG Indomethacin (Indocin Cap) 25 mg TID PRN PO 10/20/16 20:45 11/19/16 20:44 10/23/16 19:59 25 MG Levothyroxine Sodium (Synthroid Tab) 25 mcg DAILYBB PO 10/21/16 06:30 11/20/16 06:59 10/23/16 06:12 25 MCG [place] Carbonate (Dugger Carbonate Tab) 600 mg HS PO 10/20/16 21:00 11/19/16 20:59 10/23/16 19:58 600 MG [place] Carbonate (Eskalith Cr Tab) 450 mg QAM PO 10/21/16 08:00 11/20/16 08:59 Future Hold Meclizine HCl (Antivert Tab) 25 mg TID PO 10/20/16 21:00 11/19/16 20:59 10/23/16 19:05 25 MG Pantoprazole Sodium (Protonix Tab) 40 mg QAM PO 10/21/16 08:00 11/20/16 08:59 10/23/16 07:36 40 MG Ranitidine HCl (zANTac TAB) 150 mg HS PO 10/20/16 21:00 11/19/16 20:59 10/23/16 19:59 150 MG Senna (Senokot Tab) 8.6 mg DAILY PO 10/21/16 08:00 11/20/16 08:59 10/23/16 07:37 8.6 MG Topiramate (Topamax Tab) 75 mg BID PO 10/21/16 08:00 11/20/16 07:59 10/23/16 19:09 75 MG Tramadol HCl (Ultram Tab) 50 mg Q4H PRN PO 10/20/16 20:45 11/19/16 20:44 10/22/16 17:06 50 MG Cholecalciferol (Vitamin D Tab) 2,000 inter.unit DAILY PO 10/21/16 08:00 11/20/16 08:59 10/23/16 07:38 2,000 INTER.UNIT Ferrous Sulfate (Feosol Tab) 325 mg BIDM PO 10/21/16 08:00 11/20/16 07:59 10/23/16 17:16 325 MG Hydroxyzine HCl (Vistaril Tab) 25 mg Q8 PRN PO 10/20/16 20:45 11/19/16 20:44 10/23/16 19:10 25 MG Lactobacillus Acidophilus (Floranex Tab) 4 tab BID PO 10/20/16 21:00 11/19/16 20:59 10/23/16 19:07 4 TAB Albuterol Sulfate (Ventolin 0.083% 2.5MG/3ML Neb) 2.5 mg Q4H PRN INH 10/20/16 20:45 11/19/16 20:44 Nortriptyline HCl (Pamelor Cap) 100 mg HS PO 10/21/16 21:00 11/20/16 20:59 10/23/16 19:59 100 MG Heparin Sodium (Porcine) (Heparin 100 Unit/ml 5ml Flush) 5 ml PRN PRN IV 10/21/16 02:30 11/20/16 02:29 10/23/16 00:18 5 ML Acetaminophen (Tylenol Tab) 1,000 mg Q6H PRN PO 10/21/16 11:45 11/20/16 11:44 10/23/16 15:15 1,000 MG Morphine Sulfate (MoRPHine SULFATE INJ) 4 mg Q4H PRN IV 10/21/16 13:00 11/04/16 12:59 Morphine Sulfate (MoRPHine SULFATE INJ) 2 mg Q4H PRN IV 10/21/16 13:00 6/2/17 12:59 10/21/16 15:45 2 MG Ondansetron HCl (Zofran Inj) 4 mg Q6H PRN IV 10/21/16 19:15 11/20/16 19:14 10/23/16 11:30 4 MG Linaclotide (Linzess) 290 mcg DAILY@0730 PO 10/23/16 07:30 11/22/16 07:29 10/23/16 07:33 290 MCG Ethinyl Estradiol/ Norethindrone (Junel 1.11/01 (21 Day)) 1 tab DAILY PO 10/23/16 08:00 11/22/16 07:59 10/23/16 07:39 1 TAB Miscellaneous Information 1 ea 1 ea UD PRN N/A 10/23/16 09:45 11/22/16 09:44 Ceftolozane/ Tazobactam/ Dextrose (Zerbaxa Iv/D5 100ml) 111.4 ml @ 111.4 mls/ hr Q8H IV 10/23/16 10:00 11/02/16 09:59 10/23/16 18:37 111.4 MLS/HR Review of Systems Constitutional: No chills, No fever Eyes: No problem reported ENT: No problem reported Respiratory: No problem reported Cardiovascular: No problem reported Abdomen: No problem reported Musculoskeletal: No problem reported Genitourinary - Female: + problem reported ( See HPI) Neurologic: No problem reported Psychiatric: + problem reported ( hallucinations) Endocrine: No problem reported Hematologic / Lymphatic: No problem reported Integumentary: No problem reported Physical Exam Date Time Temp Pulse Resp B/P Pulse Ox O2 Delivery O2 Flow Rate FiO2 10/23/16 20:00 Room Air 10/23/16 15:15 Room Air 10/23/16 14:52 36.5 101 18 103/70 96 Room Air 10/23/16 08:00 Room Air 10/23/16 07:16 36.5 87 18 113/75 100 10/23/16 00:00 Room Air 10/22/16 23:35 36.4 100 20 99/67 97 Room Air General Appearance: WD/WN, no apparent distress, + obese Head: normocephalic, atraumatic Eyes: normal inspection, EOMI, sclerae normal ENT: normal ENT inspection, pharynx normal Neck: supple, no adenopathy, thyroid normal, trachea midline Respiratory/Chest: chest non-tender, lungs clear, normal breath sounds, no respiratory distress Cardiovascular: regular rate, rhythm, no gallop, no murmur Abdomen/GI: normal bowel sounds, non tender, soft, no organomegaly Back: normal inspection, no CVA tenderness Extremities/Musculoskelatal: non-tender, + pertinent finding ( bilateral AKAs) Neurologic/Psych: alert, oriented x 3 Skin: normal color, warm/dry, no rash Lymphatic: no adenopathy Laboratory Results RUN DATE: 10/23/16 [facility] LAB PAGE 1 RUN TIME: 832 Specimen Inquiry PATIENT: LUCERO BERRIOS LOC: Ang # : [id number] AGE/SX: 31/F ROOM: [facility] REG : 10/20/[address]: George Powell M : 1985 BED: 1 DIS : STATUS: ADM IN TLOC: SPEC #: [id number] AUGUSTUS: 10/21/16 STATUS: COMP REQ #: [id number] RECD: 10/21/[address] [facility] [address]: Goerge Powell M.D. SOURCE: URINE SUP ENTR: 10/21/16-[address] [facility] [address]: Irina Colon [facility]D. [facility] Darvin Lea D.O.Int.Med. Tej Brewer MD ORDERED: CULTURE UR CATH COMMENTS: Has Specimen Been Obtained/Collected? Y Procedure Result Verified Site URINE CULTURE Final 10/23/16 Organism 1 PSEUDOMONAS AERUGINOSA COLONY COUNT >100,000 CFU/ml SENS SENSITIVITY TO FOLLOW 1. PSEUDOMONAS AERUGINOSA Target Route Dose RX AB Cost M.I.C. IQ ------ ----- ------ -- ------ -------- - ------ CEFTAZIDIME R >16 CEFEPIME I 16 IMIPENEM R >8 AZTREONAM R >16 GENTAMICIN I 8 TOBRAMYCIN S <=4 AMIKACIN I 32 CIPROFLOXACIN R >2 LEVOFLOXACIN R >4 PIP/TAZO R >64 S = SENSITIVE I = INTERMEDIATE R = RESISTANT Assessment & Plan 31-year-old female with history of spina bifida, chronic indwelling Meade catheter, with recurrent urinary tract infections, now with apparent 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 Agree with use of Zerbaxa and likely will require in the range of 7 days of therapy. We will continue to follow during hospitalization.
[2016-10-23 23:39] VITALS: BP 109/74; PULSE 97; TEMP 36.4; O2SAT 95
[2016-10-24] MEDS: TAZOBACTAM IV SCH ×3 (01:48→18:30)
[2016-10-24] MEDS: DEXTROSE 5% IV SCH ×3 (01:48→18:30)
[2016-10-24] MEDS: CEFTOLOZANE IV SCH ×3 (01:48→18:30)
[2016-10-24] MEDS: LEVOTHYROXINE 25 MCG TAB PO SCH (05:55)
[2016-10-24] MEDS: LINACLOTIDE 290 MCG PO SCH (05:56)
[2016-10-24 06:50] LABS: BUN/CREATININE RATIO 18.7 (10-20); CREATININE 0.61 mg/dl (0.60-1.20); POTASSIUM 3.7 mmol/L (3.5-5.1)
[2016-10-24 07:36] VITALS: BP 105/67; PULSE 87; TEMP 36.5; O2SAT 99
[2016-10-24] MEDS: FERROUS SULFATE 325 MG TAB PO SCH ×2 (09:10→16:50)
[2016-10-24] MEDS: CLONAZEPAM 0.5 MG TAB PO SCH ×2 (09:10→19:51)
[2016-10-24] MEDS: FLUTICASONE/SALMETEROL (ADVAIR) 500/50 INH 14 PUFF INH SCH ×2 (09:10→19:51)
[2016-10-24] MEDS: ARIPIprazole TAB 15 MG TAB PO SCH (09:11)
[2016-10-24] MEDS: TOPIRAMATE 25 MG TAB PO SCH ×2 (09:11→19:55)
[2016-10-24] MEDS: DOCUSATE SODIUM 100 MG CAP PO SCH ×2 (09:12→19:52)
[2016-10-24] MEDS: CYANOCOBALAMIN 500 MCG TAB (VIT B-12) PO SCH ×2 (09:12→19:56)
[2016-10-24] MEDS: HYOSCYAMINE SULFATE 0.125 MG SL TAB PO SCH ×4 (09:13→19:54)
[2016-10-24] MEDS: GABAPENTIN 300 MG CAP PO SCH ×3 (09:13→19:54)
[2016-10-24] MEDS: LACTOBACILLUS ACIDOPHILUS (FLORANEX) TAB PO SCH ×2 (09:14→19:53)
[2016-10-24] MEDS: PANTOprazole SOD 40 MG TAB PO SCH (09:14)
[2016-10-24] MEDS: MECLIZINE HCL 12.5 MG TAB PO SCH ×3 (09:15→19:53)
[2016-10-24] MEDS: CHOLECALCIFEROL 1000 INTER.UNIT TAB PO SCH (09:15)
[2016-10-24] MEDS: SENNA 8.6 MG TAB PO SCH (09:16)
[2016-10-24] MEDS: NORETHINDRONE PO SCH (09:17)
[2016-10-24] MEDS: ETHINYL ESTRAD PO SCH (09:17)
--- NOTE | 2016-10-24 10:14 | Infectious Disease Progress Nt ---
Progress Note Date of Service October 24, 2016. Subjective Pt evaluation today including: conversation w/ patient, physical exam, chart review, lab review, review of studies, conversation w/ hr shared services consultant, review of inpatient medication list Still with some abdominal pain. No fever. Tolerating Zerbaxa without apparent difficulty. Still having hallucinations. All Other Systems: Reviewed and Negative Medications Current Inpatient Medications Medications (Trade) Dose Ordered Sig/Brenna Route Start Time Stop Time Status Last Admin Dose Admin Aripiprazole (Abilify Tab) 30 mg DAILY PO 10/21/16 08:00 11/20/16 08:59 10/24/16 09:11 30 MG Clonazepam (Klonopin Tab) 0.5 mg BID PO 10/20/16 21:00 11/19/16 20:59 10/24/16 09:10 0.5 MG Cyanocobalamin (Vitamin B-12 Tab) 250 mcg BID PO 10/20/16 21:00 11/19/16 20:59 10/24/16 09:12 250 MCG Docusate Sodium (coLACE CAP) 100 mg BID PO 10/20/16 21:00 11/19/16 20:59 10/24/16 09:12 100 MG Salmeterol Xinafoate/ Fluticasone (Advair Diskus 500/50 Inh) 1 puff BID INH 10/20/16 21:00 11/19/16 20:59 10/24/16 09:10 1 PUFF Gabapentin (Neurontin Cap) 300 mg TID PO 10/20/16 21:00 11/19/16 20:59 10/24/16 09:13 300 MG Hydroxyzine HCl (Vistaril Tab) 25 mg QD@1200 PO 10/21/16 12:00 11/20/16 11:59 10/23/16 11:34 25 MG Hyoscyamine Sulfate (Levsin Tab) 0.125 mg QID PO 10/21/16 08:00 11/20/16 08:59 10/24/16 09:13 0.125 MG Indomethacin (Indocin Cap) 25 mg TID PRN PO 10/20/16 20:45 11/19/16 20:44 10/23/16 19:59 25 MG Levothyroxine Sodium (Synthroid Tab) 25 mcg DAILYBB PO 10/21/16 06:30 11/20/16 06:59 10/24/16 05:55 25 MCG [place] Carbonate ([place] Carbonate Tab) 600 mg HS PO 10/20/16 21:00 11/19/16 20:59 10/23/16 19:58 600 MG [place] Carbonate (Eskalith Cr Tab) 450 mg QAM PO 10/21/16 08:00 11/20/16 08:59 Future Hold Meclizine HCl (Antivert Tab) 25 mg TID PO 10/20/16 21:00 11/19/16 20:59 10/24/16 09:15 25 MG Pantoprazole Sodium (Protonix Tab) 40 mg QAM PO 10/21/16 08:00 11/20/16 08:59 10/24/16 09:14 40 MG Ranitidine HCl (zANTac TAB) 150 mg HS PO 10/20/16 21:00 11/19/16 20:59 10/23/16 19:59 150 MG Senna (Senokot Tab) 8.6 mg DAILY PO 10/21/16 08:00 11/20/16 08:59 10/24/16 09:16 8.6 MG Topiramate (Topamax Tab) 75 mg BID PO 10/21/16 08:00 11/20/16 07:59 10/24/16 09:11 75 MG Tramadol HCl (Ultram Tab) 50 mg Q4H PRN PO 10/20/16 20:45 11/19/16 20:44 10/22/16 17:06 50 MG Cholecalciferol (Vitamin D Tab) 2,000 inter.unit DAILY PO 10/21/16 08:00 11/20/16 08:59 10/24/16 09:15 2,000 INTER.UNIT Ferrous Sulfate (Feosol Tab) 325 mg BIDM PO 10/21/16 08:00 11/20/16 07:59 10/24/16 09:10 325 MG Hydroxyzine HCl (Vistaril Tab) 25 mg Q8 PRN PO 10/20/16 20:45 11/19/16 20:44 10/23/16 19:10 25 MG Lactobacillus Acidophilus (Floranex Tab) 4 tab BID PO 10/20/16 21:00 11/19/16 20:59 10/24/16 09:14 4 TAB Albuterol Sulfate (Ventolin 0.083% 2.5MG/3ML Neb) 2.5 mg Q4H PRN INH 10/20/16 20:45 11/19/16 20:44 Nortriptyline HCl (Pamelor Cap) 100 mg HS PO 10/21/16 21:00 11/20/16 20:59 10/23/16 19:59 100 MG Heparin Sodium (Porcine) (Heparin 100 Unit/ml 5ml Flush) 5 ml PRN PRN IV 10/21/16 02:30 11/20/16 02:29 10/24/16 05:38 5 ML Acetaminophen (Tylenol Tab) 1,000 mg Q6H PRN PO 10/21/16 11:45 11/20/16 11:44 10/23/16 15:15 1,000 MG Morphine Sulfate (MoRPHine SULFATE INJ) 4 mg Q4H PRN IV 10/21/16 13:00 11/04/16 12:59 Morphine Sulfate (MoRPHine SULFATE INJ) 2 mg Q4H PRN IV 10/21/16 13:00 11/04/16 12:59 10/21/16 15:45 2 MG Ondansetron HCl (Zofran Inj) 4 mg Q6H PRN IV 10/21/16 19:15 11/20/16 19:14 10/23/16 11:30 4 MG Linaclotide (Linzess) 290 mcg DAILY@0730 PO 10/23/16 07:30 11/22/16 07:29 10/24/16 05:56 290 MCG Ethinyl Estradiol/ Norethindrone (Junel (21 Day)) 1 tab DAILY PO 10/23/16 08:00 11/22/16 07:59 10/24/16 09:17 1 TAB Miscellaneous Information 1 ea 1 ea UD PRN N/A 10/23/16 09:45 11/22/16 09:44 Ceftolozane/ Tazobactam/ Dextrose (Zerbaxa Iv/D5 100ml) 111.4 ml @ 111.4 mls/ hr Q8H IV 10/23/16 10:00 11/02/16 09:59 10/24/16 01:48 111.4 MLS/HR Objective Vital Signs Date Time Temp Pulse Resp B/P Pulse Ox O2 Delivery O2 Flow Rate FiO2 5/22/17 07:36 36.5 87 19 105/67 99 Room Air 10/24/16 00:00 Room Air 10/23/16 23:39 36.4 97 19 109/74 95 Room Air 10/23/16 20:00 Room Air 10/23/16 15:15 Room Air 10/23/16 14:52 36.5 101 18 103/70 96 Room Air Physical Exam General Appearance: WD/WN, no apparent distress, + obese Eyes: normal inspection, EOMI, sclerae normal ENT: normal ENT inspection, pharynx normal Neck: supple, no adenopathy, thyroid normal, trachea midline Respiratory/Chest: chest non-tender, lungs clear, normal breath sounds, no respiratory distress Cardiovascular: regular rate, rhythm, no gallop, no murmur Abdomen: normal bowel sounds, non tender, soft, no organomegaly Extremities: non-tender, + pertinent finding (bilateral AKAs) Neurologic/Psychiatric: alert, oriented x 3 Lymphatic: no adenopathy Laboratory Results Last 24 Hours Test 10/24/16 05:40 Sodium Level 146 mmol/L Potassium Level 3.7 mmol/L Chloride Level 115 mmol/L Carbon Dioxide Level 24 mmol/L Anion Gap 7.0 mmol/L Blood Urea Nitrogen 11 mg/dl Creatinine 0.61 mg/dl Est Creatinine Clear Calc Drug Dose 115.1 ml/min Estimated GFR () 142.0 Estimated GFR (Non- 122.5 BUN/Creatinine Ratio 18.7 Random Glucose 88 mg/dl Calcium Level 8.0 mg/dl Assessment and Plan 31-year-old female with history of spina bifida, chronic indwelling Meade catheter, with recurrent urinary tract infections, now with apparent 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 Should continue Zerbaxa and likely will require in the range of 7 days of therapy. We will continue to follow during hospitalization.
[2016-10-24] MEDS: hydrOXYzine HCL 25 MG TAB PO SCH (11:52)
[2016-10-24] MEDS: ONDANSETRON INJ 2 MG/ML 2 ML VIAL IV PRN ×2 (12:36→19:11)
[2016-10-24] MEDS: ACETAMINOPHEN 500 MG TAB PO PRN (16:07)
[2016-10-24 16:09] VITALS: BP 114/78; PULSE 97; TEMP 36.6; O2SAT 97
--- NOTE | 2016-10-24 20:36 | Hospitalist Progress Note ---
Hospitalist Progress Note Date of Service October 24, 2016. Subjective Pt evaluation today including: conversation w/ patient, conversation w/ family Voiding: arango catheter in place Feeling ok, mom reports pt still not back to her baseline, still a bit confused at times. Pt reports auditory and visual hallucinations continue. Constitutional: No fever Respiratory: No shortness of breath Cardiovascular: No chest pain Abdomen: + pain (chronic) All Other Systems: Reviewed and Negative Objective Vital Signs Date Time Temp Pulse Resp B/P Pulse Ox O2 Delivery O2 Flow Rate FiO2 10/24/16 16:09 36.6 97 18 114/78 97 10/24/16 16:00 Room Air 10/24/16 09:15 Room Air 10/24/16 07:36 36.5 87 19 105/67 99 Room Air 10/24/16 00:00 Room Air 10/23/16 23:39 36.4 97 19 109/74 95 Room Air Physical Exam General Appearance: WD/WN, no apparent distress, + obese Eyes: normal inspection, sclerae normal ENT: hearing grossly normal Neck: trachea midline Respiratory/Chest: lungs clear, normal breath sounds, no respiratory distress, no accessory muscle use Cardiovascular: regular rate, rhythm, no edema, no gallop, no murmur Abdomen: normal bowel sounds, soft, + pertinent finding (suprapubic catheter in place) Extremities: non-tender, no pedal edema, no calf tenderness, + pertinent finding (bilateral AKAs) Neurologic/Psychiatric: alert, normal mood/affect, + pertinent finding ( cheerful, full affect, answers all questions appropriately) Skin: normal color, warm/dry, no rash Laboratory Results Last 24 Hours Test 10/24/16 05:40 Sodium Level 146 mmol/L Potassium Level 3.7 mmol/L Chloride Level 115 mmol/L Carbon Dioxide Level 24 mmol/L Anion Gap 7.0 mmol/L Blood Urea Nitrogen 11 mg/dl Creatinine 0.61 mg/dl Est Creatinine Clear Calc Drug Dose 115.1 ml/min Estimated GFR () 142.0 Estimated GFR (Non- 122.5 BUN/Creatinine Ratio 18.7 Random Glucose 88 mg/dl Calcium Level 8.0 mg/dl Assessment and Plan 31 y/o F w/Hx Spina bifida, E[employer] shunt at - encephalopathy with psychotic features, found to have uti associated with suprapubic catheter poa Encephalopathy, Hallucinations, UTI - likely worsened recently by UTI above her baseline psychosis; not improved yet but just started on Zerbaxa yesterday as has MDR Pseudomonas -continue treatment of UTI with total 7 days Zerbaxa (today day #2) -continue home Psych meds and appreciate Psychiatry following. -appreciate ID consult -changed out suprapubic catheter on 10/23/16 (mom performs this) Schizoaffective bipolar disorder- as above Asthma quiescent -continue Albuterol Migraines - minor - cont Topamax Full code - Heparin prophylaxis
[2016-10-24] MEDS: NORTRIPTYLINE HCL 25 MG CAP PO SCH (21:00)
[2016-10-24] MEDS: RANITIDINE HCL 150 MG TAB PO SCH (21:00)
[2016-10-24] MEDS: LITHIUM CARBONATE 300 MG TAB PO SCH (21:01)
[2016-10-24] MEDS: hydrOXYzine HCL 25 MG TAB PO PRN (22:11)
--- NOTE | 2016-10-24 22:13 | DIAGNOSTIC IMAGING REPORT ---
RENAL ULTRASOUND HISTORY: Infection recurrent UTIs,suprapubic catheter, please include bladder COMPARISON: 06/26/2016 FINDINGS: Right kidney: Maximum dimension 7.7 cm. No evidence for hydronephrosis. Mild cortical thinning Normal corticomedullary differentiation and cortical thickness. Left kidney: Maximum dimension left 8.4 cm. 4 visibility due to patient body habitus. Moderate cortical thinning Bladder: Poorly seen due to body habitus considerations. Catheter is in position within the bladder. IMPRESSION: Suboptimal exam due to body habitus and patient ability to cooperate. 2. No evidence hydronephrosis. 3. Mild atrophic change of the kidneys bilaterally with no evidence for hydronephrosis. 4. Poor visibility of the bladder Electronically signed by: Werner Mcmahon M.D. 10/24/2016 10:12 PM Dictated Date/Time: 10/24/2016 10:08 PM
[2016-10-25 00:29] VITALS: BP 124/80; PULSE 112; TEMP 36.6; O2SAT 98
[2016-10-25] MEDS: DEXTROSE 5% IV SCH ×3 (02:14→17:41)
[2016-10-25] MEDS: CEFTOLOZANE IV SCH ×3 (02:14→17:41)
[2016-10-25] MEDS: TAZOBACTAM IV SCH ×3 (02:14→17:41)
[2016-10-25] MEDS: LEVOTHYROXINE 25 MCG TAB PO SCH (06:25)
[2016-10-25 07:21] VITALS: BP 113/74; PULSE 97; TEMP 36.7; O2SAT 100
[2016-10-25] MEDS: LACTOBACILLUS ACIDOPHILUS (FLORANEX) TAB PO SCH ×2 (07:53→19:44)
[2016-10-25] MEDS: CHOLECALCIFEROL 1000 INTER.UNIT TAB PO SCH (07:53)
[2016-10-25] MEDS: DOCUSATE SODIUM 100 MG CAP PO SCH ×2 (07:54→19:44)
[2016-10-25] MEDS: CYANOCOBALAMIN 500 MCG TAB (VIT B-12) PO SCH ×2 (07:54→19:44)
[2016-10-25] MEDS: MECLIZINE HCL 12.5 MG TAB PO SCH ×3 (07:54→19:44)
[2016-10-25] MEDS: LINACLOTIDE 290 MCG PO SCH (07:54)
[2016-10-25] MEDS: PANTOprazole SOD 40 MG TAB PO SCH (07:55)
[2016-10-25] MEDS: SENNA 8.6 MG TAB PO SCH (07:55)
[2016-10-25] MEDS: ARIPIprazole TAB 15 MG TAB PO SCH (07:55)
[2016-10-25] MEDS: HYOSCYAMINE SULFATE 0.125 MG SL TAB PO SCH ×4 (07:55→19:44)
[2016-10-25] MEDS: GABAPENTIN 300 MG CAP PO SCH ×3 (07:55→19:44)
[2016-10-25] MEDS: TOPIRAMATE 25 MG TAB PO SCH ×2 (07:56→19:43)
[2016-10-25] MEDS: ETHINYL ESTRAD PO SCH (07:57)
[2016-10-25] MEDS: FERROUS SULFATE 325 MG TAB PO SCH ×2 (07:57→17:38)
[2016-10-25] MEDS: NORETHINDRONE PO SCH (07:57)
[2016-10-25] MEDS: CLONAZEPAM 0.5 MG TAB PO SCH ×2 (07:57→19:47)
[2016-10-25] MEDS: FLUTICASONE/SALMETEROL (ADVAIR) 500/50 INH 14 PUFF INH SCH ×2 (07:57→19:39)
[2016-10-25 09:24] LABS: HEMATOCRIT 39.2 % (37-47); MEAN CELL VOLUME 95.8 fL (80-100); MEAN CORPUSCULAR HEMOGLOBIN 30.3 pg (25-34); MEAN CORPUSCULAR HGB CONC 31.6 g/dl (32-36); MEAN PLATELET VOLUME 9.5 fL (7.4-10.4); PLATELET COUNT 193 K/uL (130-400); RED BLOOD COUNT 4.09 M/uL (4.2-5.4); WHITE BLOOD COUNT 9.31 K/uL (4.8-10.8)
[2016-10-25 09:43] LABS: BASO % 0.3 %; BASO ABS # 0.03 K/uL (0-0.2); COMPLETE YES; EOS % 3.1 %; IG% 0.2 %; LYMPH % 20.2 %; LYMPH ABS # 1.88 K/uL (1.2-3.4); MONO % 6.6 %; NEUT % 69.6 %
[2016-10-25 09:59] LABS: BUN/CREATININE RATIO 13.6 (10-20); CREATININE 0.76 mg/dl (0.60-1.20); MAGNESIUM 2.4 mg/dl (1.8-2.4); POTASSIUM 3.4 mmol/L (3.5-5.1)
[2016-10-25 10:01] LABS: CALCIUM 8.6 mg/dl (8.5-10.1)
[2016-10-25] MEDS ORDERED: POTASSIUM CHLORIDE 10 MEQ TABCR PO STA (11:13)
--- NOTE | 2016-10-25 11:25 | Hospitalist Progress Note ---
Hospitalist Progress Note Date of Service October 25, 2016. Subjective Pt evaluation today including: conversation w/ patient says her hallucinations are worse, abd pain is less and moved her bowels, afebrile. Also reports 2 decub ulcers opened up on buttocks All Other Systems: Reviewed and Negative Objective Vital Signs Date Time Temp Pulse Resp B/P Pulse Ox O2 Delivery O2 Flow Rate FiO2 10/25/16 07:50 Room Air 10/25/16 07:21 36.7 97 18 113/74 100 Room Air 10/25/16 00:29 36.6 112 18 124/80 98 10/25/16 00:00 Room Air 10/24/16 16:09 36.6 97 18 114/78 97 10/24/16 16:00 Room Air Physical Exam General Appearance: WD/WN, no apparent distress, + obese Eyes: normal inspection, sclerae normal ENT: hearing grossly normal Neck: trachea midline Respiratory/Chest: no respiratory distress, no accessory muscle use Cardiovascular: regular rate, rhythm, no edema, no gallop, no murmur Abdomen: normal bowel sounds, non tender, soft Extremities: non-tender, + pertinent finding (bilat AKAs) Neurologic/Psychiatric: alert, normal mood/affect, oriented x 3 Skin: normal color, warm/dry, + pertinent finding (superior buttocks bilaterally with small open wounds without surrounding erythema, no drainage, stage 2 decubitus ulcers) Laboratory Results Last 24 Hours Test 10/25/16 09:14 White Blood Count 9.31 K/uL Red Blood Count 4.09 M/uL Hemoglobin 12.4 g/dL Hematocrit 39.2 % Mean Corpuscular Volume 95.8 fL Mean Corpuscular Hemoglobin 30.3 pg Mean Corpuscular Hemoglobin Concent 31.6 g/dl Platelet Count 193 K/uL Mean Platelet Volume 9.5 fL Neutrophils (%) (Auto) 69.6 % Lymphocytes (%) (Auto) 20.2 % Monocytes (%) (Auto) 6.6 % Eosinophils (%) (Auto) 3.1 % Basophils (%) (Auto) 0.3 % Neutrophils # (Auto) 6.48 K/uL Lymphocytes # (Auto) 1.88 K/uL Monocytes # (Auto) 0.61 K/uL Eosinophils # (Auto) 0.29 K/uL Basophils # (Auto) 0.03 K/uL RDW Standard Deviation 50.9 fL RDW Coefficient of Variation 14.5 % Immature Granulocyte % (Auto) 0.2 % Immature Granulocyte # (Auto) 0.02 K/uL Sodium Level 144 mmol/L Potassium Level 3.4 mmol/L Chloride Level 114 mmol/L Carbon Dioxide Level 20 mmol/L Anion Gap 10.0 mmol/L Blood Urea Nitrogen 10 mg/dl Creatinine 0.76 mg/dl Est Creatinine Clear Calc Drug Dose 92.4 ml/min Estimated GFR () 122.9 Estimated GFR (Non- 106.0 BUN/Creatinine Ratio 13.6 Random Glucose 111 mg/dl Calcium Level 8.6 mg/dl Magnesium Level 2.4 mg/dl Assessment and Plan 31 y/o F w/Hx Spina bifida, 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 -if hallucinations not improving with tx of UTI, suspect from Psych issues -appreciate ID consult -changed out suprapubic catheter on 10/23/16 (mom performs this) Schizoaffective bipolar disorder- as above Asthma quiescent -continue Albuterol Migraines - minor - cont Topamax Decubitus ulcers buttocks bilaterally stage 2, not POA -special effects designer consult, covered with Optifoam for now Full code - Heparin prophylaxis
[2016-10-25] MEDS ORDERED: POTASSIUM CHLR 20 MEQ / WTR 20 MEQ in PREMIXED WATER 100 ML IV ONE (12:00)
[2016-10-25] MEDS: hydrOXYzine HCL 25 MG TAB PO SCH (12:10)
--- NOTE | 2016-10-25 14:46 | Infectious Disease Progress Nt ---
Progress Note Date of Service October 25, 2016. Subjective Pt evaluation today including: conversation w/ patient, physical exam, chart review, lab review, review of studies, conversation w/ decorator consultant, review of inpatient medication list Patient continues with hallucinations, may be slightly worse. Remains afebrile. No worsening abdominal pain. No dysuria. All Other Systems: Reviewed and Negative Medications Current Inpatient Medications Medications (Trade) Dose Ordered Sig/Brenna Route Start Time Stop Time Status Last Admin Dose Admin Aripiprazole (Abilify Tab) 30 mg DAILY PO 10/21/16 08:00 11/20/16 08:59 10/25/16 07:55 30 MG Clonazepam (Klonopin Tab) 0.5 mg BID PO 10/20/16 21:00 11/19/16 20:59 10/25/16 07:57 0.5 MG Cyanocobalamin (Vitamin B-12 Tab) 250 mcg BID PO 10/20/16 21:00 11/19/16 20:59 10/25/16 07:54 250 MCG Docusate Sodium (coLACE CAP) 100 mg BID PO 10/20/16 21:00 11/19/16 20:59 10/25/16 07:54 100 MG Salmeterol Xinafoate/ Fluticasone (Advair Diskus 500/50 Inh) 1 puff BID INH 10/20/16 21:00 11/19/16 20:59 10/25/16 07:57 1 PUFF Gabapentin (Neurontin Cap) 300 mg TID PO 10/20/16 21:00 11/19/16 20:59 10/25/16 14:16 300 MG Hydroxyzine HCl (Vistaril Tab) 25 mg QD@1200 PO 10/21/16 12:00 11/20/16 11:59 10/25/16 12:10 25 MG Hyoscyamine Sulfate (Levsin Tab) 0.125 mg QID PO 10/21/16 08:00 11/20/16 08:59 10/25/16 12:11 0.125 MG Indomethacin (Indocin Cap) 25 mg TID PRN PO 10/20/16 20:45 11/19/16 20:44 10/23/16 19:59 25 MG Levothyroxine Sodium (Synthroid Tab) 25 mcg DAILYBB PO 10/21/16 06:30 11/20/16 06:59 10/25/16 06:25 25 MCG Dulac Carbonate (Dulac Carbonate Tab) 600 mg HS PO 10/20/16 21:00 11/19/16 20:59 10/24/16 21:01 600 MG Dulac Carbonate (Eskalith Cr Tab) 450 mg QAM PO 10/21/16 08:00 11/20/16 08:59 Future Hold Meclizine HCl (Antivert Tab) 25 mg TID PO 10/20/16 21:00 11/19/16 20:59 10/25/16 14:17 25 MG Pantoprazole Sodium (Protonix Tab) 40 mg QAM PO 10/21/16 08:00 11/20/16 08:59 10/25/16 07:55 40 MG Ranitidine HCl (zANTac TAB) 150 mg HS PO 10/20/16 21:00 11/19/16 20:59 10/24/16 21:00 150 MG Senna (Senokot Tab) 8.6 mg DAILY PO 10/21/16 08:00 11/20/16 08:59 10/24/16 09:16 8.6 MG Topiramate (Topamax Tab) 75 mg BID PO 10/21/16 08:00 11/20/16 07:59 10/25/16 07:56 75 MG Tramadol HCl (Ultram Tab) 50 mg Q4H PRN PO 10/20/16 20:45 11/19/16 20:44 10/22/16 17:06 50 MG Cholecalciferol (Vitamin D Tab) 2,000 inter.unit DAILY PO 10/21/16 08:00 11/20/16 08:59 10/25/16 07:53 2,000 INTER.UNIT Ferrous Sulfate (Feosol Tab) 325 mg BIDM PO 10/21/16 08:00 11/20/16 07:59 10/25/16 07:57 325 MG Hydroxyzine HCl (Vistaril Tab) 25 mg Q8 PRN PO 10/20/16 20:45 11/19/16 20:44 10/24/16 22:11 25 MG Lactobacillus Acidophilus (Floranex Tab) 4 tab BID PO 10/20/16 21:00 11/19/16 20:59 10/25/16 07:53 4 TAB Albuterol Sulfate (Ventolin 0.083% 2.5MG/3ML Neb) 2.5 mg Q4H PRN INH 10/20/16 20:45 11/19/16 20:44 Nortriptyline HCl (Pamelor Cap) 100 mg HS PO 10/21/16 21:00 11/20/16 20:59 10/24/16 21:00 100 MG Heparin Sodium (Porcine) (Heparin 100 Unit/ml 5ml Flush) 5 ml PRN PRN IV 10/21/16 02:30 11/20/16 02:29 10/25/16 14:15 5 ML Acetaminophen (Tylenol Tab) 1,000 mg Q6H PRN PO 10/21/16 11:45 11/20/16 11:44 10/24/16 16:07 1,000 MG Morphine Sulfate (MoRPHine SULFATE INJ) 4 mg Q4H PRN IV 10/21/16 13:00 11/04/16 12:59 10/24/16 17:20 4 MG Morphine Sulfate (MoRPHine SULFATE INJ) 2 mg Q4H PRN IV 10/21/16 13:00 11/04/16 12:59 10/21/16 15:45 2 MG Ondansetron HCl (Zofran Inj) 4 mg Q6H PRN IV 10/21/16 19:15 11/20/16 19:14 10/24/16 19:11 4 MG Linaclotide (Linzess) 290 mcg DAILY@0730 PO 10/23/16 07:30 11/22/16 07:29 10/25/16 07:54 290 MCG Ethinyl Estradiol/ Norethindrone (Junel (21 Day)) 1 tab DAILY PO 10/23/16 08:00 11/22/16 07:59 10/25/16 07:57 1 TAB Miscellaneous Information 1 ea 1 ea UD PRN N/A 10/23/16 09:45 11/22/16 09:44 Ceftolozane/ Tazobactam/ Dextrose (Zerbaxa Iv/D5 100ml) 111.4 ml @ 111.4 mls/ hr Q8H IV 10/23/16 10:00 11/02/16 09:59 10/25/16 10:52 111.4 MLS/HR Objective Vital Signs Date Time Temp Pulse Resp B/P Pulse Ox O2 Delivery O2 Flow Rate FiO2 10/25/16 07:50 Room Air 10/25/16 07:21 36.7 97 18 113/74 100 Room Air 10/25/16 00:29 36.6 112 18 124/80 98 10/25/16 00:00 Room Air 10/24/16 16:09 36.6 97 18 114/78 97 10/24/16 16:00 Room Air Physical Exam General Appearance: WD/WN, no apparent distress, + obese Eyes: normal inspection, sclerae normal ENT: normal ENT inspection, pharynx normal Neck: supple, no adenopathy, trachea midline Respiratory/Chest: chest non-tender, lungs clear, normal breath sounds, no respiratory distress Cardiovascular: regular rate, rhythm, no gallop, no murmur Abdomen: normal bowel sounds, soft, no organomegaly, + tenderness (Mild) Extremities: non-tender, + pertinent finding (Bilateral AKAs) Neurologic/Psychiatric: alert, oriented x 3 Skin: normal color, warm/dry, no rash, + pertinent finding (Small stage II buttock ulcers) Lymphatic: no adenopathy Laboratory Results Last 24 Hours Test 10/25/16 09:14 White Blood Count 9.31 K/uL Red Blood Count 4.09 M/uL Hemoglobin 12.4 g/dL Hematocrit 39.2 % Mean Corpuscular Volume 95.8 fL Mean Corpuscular Hemoglobin 30.3 pg Mean Corpuscular Hemoglobin Concent 31.6 g/dl Platelet Count 193 K/uL Mean Platelet Volume 9.5 fL Neutrophils (%) (Auto) 69.6 % Lymphocytes (%) (Auto) 20.2 % Monocytes (%) (Auto) 6.6 % Eosinophils (%) (Auto) 3.1 % Basophils (%) (Auto) 0.3 % Neutrophils # (Auto) 6.48 K/uL Lymphocytes # (Auto) 1.88 K/uL Monocytes # (Auto) 0.61 K/uL Eosinophils # (Auto) 0.29 K/uL Basophils # (Auto) 0.03 K/uL RDW Standard Deviation 50.9 fL RDW Coefficient of Variation 14.5 % Immature Granulocyte % (Auto) 0.2 % Immature Granulocyte # (Auto) 0.02 K/uL Sodium Level 144 mmol/L Potassium Level 3.4 mmol/L Chloride Level 114 mmol/L Carbon Dioxide Level 20 mmol/L Anion Gap 10.0 mmol/L Blood Urea Nitrogen 10 mg/dl Creatinine 0.76 mg/dl Est Creatinine Clear Calc Drug Dose 92.4 ml/min Estimated GFR () 122.9 Estimated GFR (Non- 106.0 BUN/Creatinine Ratio 13.6 Random Glucose 111 mg/dl Calcium Level 8.6 mg/dl Magnesium Level 2.4 mg/dl Assessment and Plan 31-year-old female with history of spina bifida, chronic indwelling Meade catheter, with recurrent urinary tract infections, now with apparent 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 Should continue Zerbaxa andwill give 7 days of therapy. We will continue to follow during hospitalization.
[2016-10-25 16:19] VITALS: BP 98/67; PULSE 98; TEMP 36.6; O2SAT 100
[2016-10-25] MEDS: TRAMADOL HCL 50 MG TAB PO PRN (18:29)
[2016-10-25] MEDS: ONDANSETRON INJ 2 MG/ML 2 ML VIAL IV PRN (18:29)
[2016-10-25] MEDS: LITHIUM CARBONATE 300 MG TAB PO SCH (19:43)
[2016-10-25] MEDS: NORTRIPTYLINE HCL 25 MG CAP PO SCH (19:44)
[2016-10-25] MEDS: RANITIDINE HCL 150 MG TAB PO SCH (19:45)
[2016-10-25 23:43] VITALS: BP 109/67; PULSE 97; TEMP 36.8; O2SAT 94
[2016-10-26] MEDS: DEXTROSE 5% IV SCH ×2 (01:38→11:16)
[2016-10-26] MEDS: TAZOBACTAM IV SCH ×2 (01:38→11:16)
[2016-10-26] MEDS: CEFTOLOZANE IV SCH ×2 (01:38→11:16)
[2016-10-26] MEDS: ACETAMINOPHEN 500 MG TAB PO PRN (05:17)
[2016-10-26] MEDS: LEVOTHYROXINE 25 MCG TAB PO SCH (05:17)
[2016-10-26 06:33] LABS: BUN/CREATININE RATIO 15.4 (10-20); CREATININE 0.68 mg/dl (0.60-1.20); POTASSIUM 3.7 mmol/L (3.5-5.1)
[2016-10-26 07:37] VITALS: BP 124/73; PULSE 85; TEMP 36.6; O2SAT 100
[2016-10-26] MEDS: ARIPIprazole TAB 15 MG TAB PO SCH (07:40)
[2016-10-26] MEDS: CLONAZEPAM 0.5 MG TAB PO SCH (07:40)
[2016-10-26] MEDS: CHOLECALCIFEROL 1000 INTER.UNIT TAB PO SCH (07:41)
[2016-10-26] MEDS: PANTOprazole SOD 40 MG TAB PO SCH (07:41)
[2016-10-26] MEDS: HYOSCYAMINE SULFATE 0.125 MG SL TAB PO SCH ×2 (07:42→12:22)
[2016-10-26] MEDS: TOPIRAMATE 25 MG TAB PO SCH (07:42)
[2016-10-26] MEDS: FERROUS SULFATE 325 MG TAB PO SCH (07:42)
[2016-10-26] MEDS: GABAPENTIN 300 MG CAP PO SCH ×2 (07:43→13:00)
[2016-10-26] MEDS: FLUTICASONE/SALMETEROL (ADVAIR) 500/50 INH 14 PUFF INH SCH (07:43)
[2016-10-26] MEDS: LINACLOTIDE 290 MCG PO SCH (07:43)
[2016-10-26] MEDS: SENNA 8.6 MG TAB PO SCH (07:43)
[2016-10-26] MEDS: CYANOCOBALAMIN 500 MCG TAB (VIT B-12) PO SCH (07:44)
[2016-10-26] MEDS: LACTOBACILLUS ACIDOPHILUS (FLORANEX) TAB PO SCH (07:45)
[2016-10-26] MEDS: ETHINYL ESTRAD PO SCH (07:47)
[2016-10-26] MEDS: MECLIZINE HCL 12.5 MG TAB PO SCH ×2 (07:47→12:59)
[2016-10-26] MEDS: DOCUSATE SODIUM 100 MG CAP PO SCH (07:47)
[2016-10-26] MEDS: NORETHINDRONE PO SCH (07:47)
[2016-10-26] MEDS ORDERED: POTASSIUM CHLR 20 MEQ / WTR 20 MEQ in PREMIXED WATER 100 ML IV ONE (08:30)
--- NOTE | 2016-10-26 09:42 | Psychiatric Progress Notes ---
Psychiatric Progress Note Date of Service October 26, 2016. Notes 10/26/16 31 yo female with schizoaffective disorder, admitted to the medical floor for UTI. Consult for hallucinations. S: The patient says that she has been having some hallucinations that are "annoying", but not problematic. She is able to understand that they aren't real and reality tests them by asking others if they hear or see them. Her mood has been "up and down, but mostly up". She denies SI. She does not think that she needs a mental health hospitalization, and is forward thinking, talking about training her dog and doing things with her mother. Is denying pain or symptoms of UTI. O: Casually and appropriately dressed and groomed. Eye contact is good. Affect is smiling and mood congruent. Speech is of normal rate, volume and tone. Thoughts are organized, goal directed. She does not appear to be responding to internal stimuli. Recent/remote memory intact per conversation. Intelligence estimated to be average. Insight and judgment are fair. A: We understand from her primary team, that they may consider discharge to home for remainder of ABX. Her hallucinations are approaching baseline, without SI and from a psychiatric standpoint, can be discharged home with follow up with Dr. Goode her OP psychiatrist. She has an appt in November, but says that she has an agreement with him that if she needs to be seen sooner, she can walk in. we changed no meds during her stay and so will require no new rx. P: OK for discharge home from psych stand point.
[2016-10-26] MEDS: hydrOXYzine HCL 25 MG TAB PO SCH (12:22)
--- NOTE | 2016-10-26 13:57 | Infectious Disease Progress Nt ---
Progress Note Date of Service October 26, 2016. Subjective Pt evaluation today including: conversation w/ patient, physical exam, chart review, lab review, review of studies, conversation w/ regulatory services consultant, review of inpatient medication list Still with hallucination. Otherwise no new complaints. Abdominal pain tolerable. No fever. All Other Systems: Reviewed and Negative Medications Current Inpatient Medications Medications (Trade) Dose Ordered Sig/Brenna Route Start Time Stop Time Status Last Admin Dose Admin Aripiprazole (Abilify Tab) 30 mg DAILY PO 10/21/16 08:00 11/20/16 08:59 10/26/16 07:40 30 MG Clonazepam (Klonopin Tab) 0.5 mg BID PO 10/20/16 21:00 11/19/16 20:59 10/26/16 07:40 0.5 MG Cyanocobalamin (Vitamin B-12 Tab) 250 mcg BID PO 10/20/16 21:00 11/19/16 20:59 10/26/16 07:44 250 MCG Docusate Sodium (coLACE CAP) 100 mg BID PO 10/20/16 21:00 11/19/16 20:59 10/26/16 07:47 100 MG Salmeterol Xinafoate/ Fluticasone (Advair Diskus 500/50 Inh) 1 puff BID INH 10/20/16 21:00 11/19/16 20:59 10/26/16 07:43 1 PUFF Gabapentin (Neurontin Cap) 300 mg TID PO 10/20/16 21:00 11/19/16 20:59 10/26/16 13:00 300 MG Hydroxyzine HCl (Vistaril Tab) 25 mg QD@1200 PO 10/21/16 12:00 11/20/16 11:59 10/26/16 12:22 25 MG Hyoscyamine Sulfate (Levsin Tab) 0.125 mg QID PO 10/21/16 08:00 11/20/16 08:59 10/26/16 12:22 0.125 MG Indomethacin (Indocin Cap) 25 mg TID PRN PO 10/20/16 20:45 11/19/16 20:44 10/23/16 19:59 25 MG Levothyroxine Sodium (Synthroid Tab) 25 mcg DAILYBB PO 10/21/16 06:30 11/20/16 06:59 10/26/16 05:17 25 MCG Lykens Carbonate (Lykens Carbonate Tab) 600 mg HS PO 10/20/16 21:00 11/19/16 20:59 10/25/16 19:43 600 MG Lykens Carbonate (Eskalith Cr Tab) 450 mg QAM PO 10/21/16 08:00 11/20/16 08:59 Future Hold Meclizine HCl (Antivert Tab) 25 mg TID PO 10/20/16 21:00 11/19/16 20:59 10/26/16 12:59 25 MG Pantoprazole Sodium (Protonix Tab) 40 mg QAM PO 10/21/16 08:00 11/20/16 08:59 10/26/16 07:41 40 MG Ranitidine HCl (zANTac TAB) 150 mg HS PO 10/20/16 21:00 11/19/16 20:59 10/25/16 19:45 150 MG Senna (Senokot Tab) 8.6 mg DAILY PO 10/21/16 08:00 11/20/16 08:59 10/26/16 07:43 8.6 MG Topiramate (Topamax Tab) 75 mg BID PO 10/21/16 08:00 11/20/16 07:59 10/26/16 07:42 75 MG Tramadol HCl (Ultram Tab) 50 mg Q4H PRN PO 10/20/16 20:45 11/19/16 20:44 10/25/16 18:29 50 MG Cholecalciferol (Vitamin D Tab) 2,000 inter.unit DAILY PO 10/21/16 08:00 11/20/16 08:59 10/26/16 07:41 2,000 INTER.UNIT Ferrous Sulfate (Feosol Tab) 325 mg BIDM PO 10/21/16 08:00 11/20/16 07:59 10/26/16 07:42 325 MG Hydroxyzine HCl (Vistaril Tab) 25 mg Q8 PRN PO 10/20/16 20:45 11/19/16 20:44 10/24/16 22:11 25 MG Lactobacillus Acidophilus (Floranex Tab) 4 tab BID PO 10/20/16 21:00 11/19/16 20:59 10/26/16 07:45 4 TAB Albuterol Sulfate (Ventolin 0.083% 2.5MG/3ML Neb) 2.5 mg Q4H PRN INH 10/20/16 20:45 11/19/16 20:44 Nortriptyline HCl (Pamelor Cap) 100 mg HS PO 10/21/16 21:00 11/20/16 20:59 10/25/16 19:44 100 MG Heparin Sodium (Porcine) (Heparin 100 Unit/ml 5ml Flush) 5 ml PRN PRN IV 10/21/16 02:30 11/20/16 02:29 10/26/16 12:59 5 ML Acetaminophen (Tylenol Tab) 1,000 mg Q6H PRN PO 10/21/16 11:45 11/20/16 11:44 10/26/16 05:17 1,000 MG Morphine Sulfate (MoRPHine SULFATE INJ) 4 mg Q4H PRN IV 10/21/16 13:00 11/04/16 12:59 10/24/16 17:20 4 MG Morphine Sulfate (MoRPHine SULFATE INJ) 2 mg Q4H PRN IV 10/21/16 13:00 11/04/16 12:59 10/21/16 15:45 2 MG Ondansetron HCl (Zofran Inj) 4 mg Q6H PRN IV 10/21/16 19:15 11/20/16 19:14 10/25/16 18:29 4 MG Linaclotide (Linzess) 290 mcg DAILY@0730 PO 10/23/16 07:30 11/22/16 07:29 10/26/16 07:43 290 MCG Ethinyl Estradiol/ Norethindrone (Junel (21 Day)) 1 tab DAILY PO 10/23/16 08:00 11/22/16 07:59 10/26/16 07:47 1 TAB Miscellaneous Information 1 ea 1 ea UD PRN N/A 10/23/16 09:45 11/22/16 09:44 Ceftolozane/ Tazobactam/ Dextrose (Zerbaxa Iv/D5 100ml) 111.4 ml @ 111.4 mls/ hr Q8H IV 10/23/16 10:00 11/02/16 09:59 10/26/16 11:16 111.4 MLS/HR Objective Vital Signs Date Time Temp Pulse Resp B/P Pulse Ox O2 Delivery O2 Flow Rate FiO2 10/26/16 07:40 Room Air 10/26/16 07:37 36.6 85 16 124/73 100 Room Air 10/26/16 00:00 Room Air 10/25/16 23:43 36.8 97 16 109/67 94 Nasal Cannula 10/25/16 20:00 Room Air 10/25/16 16:19 36.6 98 18 98/67 100 Room Air 10/25/16 15:02 Room Air Physical Exam General Appearance: WD/WN, no apparent distress Eyes: normal inspection, sclerae normal ENT: normal ENT inspection, pharynx normal Neck: supple, no adenopathy, trachea midline Respiratory/Chest: chest non-tender, lungs clear, normal breath sounds, no respiratory distress Cardiovascular: regular rate, rhythm, no gallop, no murmur Abdomen: normal bowel sounds, non tender, soft, no organomegaly Extremities: non-tender, + pertinent finding (bilateral AKAs) Neurologic/Psychiatric: alert, oriented x 3 Skin: normal color, warm/dry, no rash Lymphatic: no adenopathy Laboratory Results Last 24 Hours Test 10/26/16 05:20 Sodium Level 146 mmol/L Potassium Level 3.7 mmol/L Chloride Level 116 mmol/L Carbon Dioxide Level 23 mmol/L Anion Gap 7.0 mmol/L Blood Urea Nitrogen 10 mg/dl Creatinine 0.68 mg/dl Est Creatinine Clear Calc Drug Dose 103.3 ml/min Estimated GFR () 137.0 Estimated GFR (Non- 118.2 BUN/Creatinine Ratio 15.4 Random Glucose 78 mg/dl Calcium Level 8.0 mg/dl Assessment and Plan 31-year-old female with history of spina bifida, chronic indwelling Meade catheter, with recurrent urinary tract infections, now with 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 Should continue Zerbaxa for 7 days of therapy. See no obvious contraindication to outpatient therapy if can be arranged.We will continue to follow during hospitalization.
[2016-10-26 14:58] VITALS: BP 129/78; PULSE 99; TEMP 36.4; O2SAT 100
[2016-10-26] MEDS ORDERED: [UNRECOGNIZED DRUG - CODE] IV (15:52)
[2016-10-26] MEDS ORDERED: MCRK20 PO (16:06)
--- NOTE | 2016-10-26 16:14 | Discharge Instructions ---
Discharge Instructions Date of Service October 26, 2016. Admission Reason for Admission: UTI Discharge Discharge Diagnosis / Problem: UTI Discharge Goals Goal(s): Improve disease control, Therapeutic intervention Activity Recommendations Activity Limitations: resume your previous activity . Instructions / Follow-Up Instructions / Follow-Up You were admitted for IV antibiotics for a highly resistant bacterial infection in your bladder. You were also having an increase in your hallucinations which improved with treatment of your UTI. You will finish out a 7 day course of antibiotics at home with IV Zerbaxa. Please follow up with Dr. Lea within 1 week. Of note, you did have low potassium upon admission that required almost daily replacement. There is a chance this might be related to a recent increase in your topiramate. Please take an oral potassium supplement daily and speak to your Neurologist about possibly decreasing the dose of your topiramate if desired. Current Hospital Diet Patient's current hospital diet: Regular Diet Discharge Diet Recommended Diet: Regular Diet Pending Studies Studies pending at discharge: no Medical Emergencies . Who to Call and When: Medical Emergencies: If at any time you feel your situation is an emergency, please call 911 immediately. . Non-Emergent Contact Non-Emergency issues call your: Primary Care Provider Call Non-Emergent contact if: you have a fever, your pain is not controlled, your pain is worsening, you have any medication questions . . "Provider Documentation" section prepared by Cheryle Masterson. . VTE Core Measure Inpt VTE Proph given/why not?: Unfractionated heparin SQ
[2016-10-26 16:22] VITALS: BP 129/78; PULSE 99; TEMP 36.4; O2SAT 100
--- NOTE | 2016-10-26 22:04 | Discharge Summary ---
"Discharge Summary Date of Service October 26, 2016. Discharge Summary Admission Date: October 20, 2016 at 21:30 Discharge Date: October 26, 2016 Discharge Disposition: Home with services Principal Diagnosis: UTI Problems/Secondary Diagnoses: Acute metabolic encephalopathy Psychosis Spina bifida History of BACKEND PYTHON DEVELOPER shunt Neurogenic bladder Chronic indwelling suprapubic catheter Schizoaffective bipolar disorder Asthma Obesity Hypokalemia Migraines Decubitus ulcers buttocks bilaterally stage 2, not POA Chronic constipation Procedures: RENAL ULTRASOUND HISTORY: Infection recurrent UTIs,suprapubic catheter, please include bladder COMPARISON: 06/26/2016 FINDINGS: Right kidney: Maximum dimension 7.7 cm. No evidence for hydronephrosis. Mild cortical thinning Normal corticomedullary differentiation and cortical thickness. Left kidney: Maximum dimension left 8.4 cm. 4 visibility due to patient body habitus. Moderate cortical thinning Bladder: Poorly seen due to body habitus considerations. Catheter is in position within the bladder. IMPRESSION: Suboptimal exam due to body habitus and patient ability to cooperate. 2. No evidence hydronephrosis. 3. Mild atrophic change of the kidneys bilaterally with no evidence for hydronephrosis. 4. Poor visibility of the bladder Consultations: Infectious disease Psychiatry Medication Reconciliation New Medications: Ceftolozane Sulfate-Tazobactam (Zerbaxa 1-0.5 gm) 1 Inj Inj 1.5 GM IV Q8H for 4 Days, #12 VIAL Potassium Chloride (Klor-Con M20) 20 Meq Tabcr 20 MEQ PO DAILY for 30 Days, #30 TAB Continued Medications: Acetaminophen (Acetaminophen Extra Stren) 500 Mg Tab 500-1000 MG PO Q6H PRN for Pain Albuterol Hfa (Ventolin Hfa) 200 Puffs/89253 Mcg Aers 2 PUFFS INH Q4 PRN for Shortness of Breath, #1 INHALER 0 Refills Aripiprazole (Abilify) 30 Mg Tab 1 TAB PO DAILY for 30 Days, #30 TAB 2 Refills Cholecalciferol (Vitamin D) 2,000 Unit Cap 2000 INTER.UNIT PO DAILY Clonazepam (Klonopin) 0.5 Mg Tab 0.5 MG PO BID, TAB Cyanocobalamin (Vitamin B-12) 500 Mcg Tab 500 MG PO BID Dihydroergotamine Mesylate (Migranal) 4 Mg/Ml Kathryn 4 MG NA UD PRN for Migraine Docusate Sodium (Dulcolax Stool Softener) 100 Mg Cap 100 MG PO BID for 30 Days Docusate Sodium (Docusate Sodium) 100 Mg Cap 1 CAP PO BID for 7 Days, #14 CAP Ethinyl Estradiol/Norethindr (Loestrin 1.5/30-21 1.5-30 mg-Mcg) 1 Ea Tab 1 TAB PO DAILY for 28 Days, #28 TAB 11 Refills Ferrous Sulfate (Kp Ferrous Sulfate) 325 Mg Tab 1 TAB PO BIDM for 30 Days, #60 TAB 3 Refills Fluticasone Prop/Salmeterol (Advair Diskus 500/50 60 Dose) 1 Ea Aerp 1 PUFF INH BID, INHALER Gabapentin (Gabapentin) 300 Mg Cap 300 MG PO TID Hydroxyzine HCl (Hydroxyzine Pamoate) 25 Mg Tab 25 MG PO Q8 PRN for Anxiety Hydroxyzine Hcl (Atarax) 25 Mg Tab 25 MG PO QD@1200, TAB Hyoscyamine Sulfate (Levsin) 0.125 Mg Tab 0.125 MG PO QID Indomethacin (Indocin) 25 Mg Cap 25 MG PO TID PRN for Headache, CAP Ketorolac Tromethamine (Ketorolac Tromethamine) 10 Mg Tab 10-20 MG PO UD PRN for Headache TAKE 1 TO 2 TABLETS TWICE A DAY NEEDED FOR HEADACHE/SEVERE PAIN, MAXIMUM 2 DOSES 3 DAYS PER WEEK Levothyroxine Sodium (Levothyroxine Sodium) 25 Mcg Tab 25 MG PO DAILY, #30 Linaclotide (Linzess) 290 Mcg Cap 290 MCG PO QAM 30 MINUTES BEFORE BREAKFAST [place] Carbonate ([place] Carbonate) 300 Mg Tab 600 MG PO HS, #1 TAB [place] Carbonate ([place] Carbonate ER) 450 Mg Tabcr 450 MG PO QAM for 30 Days, #30 Meclizine Hcl (Meclizine Hcl) 25 Mg Tab 1 TAB PO TID for 10 Days, #30 TAB Multiple Vitamin (Multivitamin) 1 Tab Tab 1 TAB PO DAILY, TAB Nortriptyline Hcl (Pamelor) 75 Mg Cap 75 MG PO HS, CAP Nortriptyline Hcl (Pamelor) 25 Mg Cap 25 MG PO HS, #30 Nystatin (Topical) (Nystop) 100,000 Unit/Gm Pow 1 APPL TOP UD PRN for SKIN IMPAIRMENT Nystatin/Triamcinolone (Mycolog ||) Cr Ondansetron (Ondansetron HCl) 4 Mg Tab 4 MG PO DAILY PRN for Nausea Pantoprazole (Pantoprazole Sodium) 40 Mg Tab 40 MG PO QAM Probiotic Product (Probiotic) 1 Tab Tab 1 TAB PO BID Ranitidine (Zantac) 150 Mg Tab 150 MG PO HS, TAB Sennosides (Senna Lax) 8.6 Mg Tab 8.6 MG PO DAILY for 30 Days Topiramate (Topamax ) 25 Mg Tab 75 MG PO BID, TAB Tramadol (Ultram) 50 Mg Tab 50 MG PO Q4H PRN for Pain, TAB Wound Dressings (Hydrofera Blue Foam Dress) 1 Pad Pad 1 APPLN TOP DAILY 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 Referrals At Discharge Follow up Referrals: Physician Referral - Within 1-2 Weeks with Darvin Lea D.O.Int.Med. Discharge Exam Feeling much better on the day of discharge. Reports that her hallucinations are much improved Physical Exam General Appearance: WD/WN, no apparent distress, + obese Eyes: normal inspection, sclerae normal ENT: hearing grossly normal Neck: trachea midline Respiratory/Chest: no respiratory distress, no accessory muscle use Cardiovascular: regular rate, rhythm, no edema, no gallop, no murmur Abdomen: normal bowel sounds, non tender, soft Extremities: non-tender, + pertinent finding (bilat AKAs) Neurologic/Psychiatric: alert, normal mood/affect, oriented x 3 Skin: normal color, warm/dry, + pertinent finding (superior buttocks bilaterally with small open wounds without surrounding erythema, no drainage, stage 2 decubitus ulcers) Review of Systems: Constitutional: No fever Eyes: No problem reported ENT: No problem reported Respiratory: No shortness of breath Cardiovascular: No problem reported Abdomen: No problem reported Musculoskeletal: No problem reported Genitourinary - Female: No problem reported Neurologic: No problem reported Psychiatric: + anxiety, + problem reported (hallucinations) Endocrine: No problem reported Hematologic / Lymphatic: No problem reported Integumentary: No problem reported Hospital Course 31 y/o F w/Hx Spina bifida, BACKEND PYTHON DEVELOPER shunt at - encephalopathy with psychotic features, found to have uti associated with suprapubic catheter poa Acute metabolic Encephalopathy, Hallucinations, UTI - likely worsened recently by UTI above her baseline psychosis; not improved yet but only on Zerbaxa for 2 days as has MDR Pseudomonas -continue treatment of UTI with total 7 days Zerbaxa (today day #4)-will return home and receive remaining antibiotics with home health -continue home Psych meds and appreciate Psychiatry following-she does not require inpatient stay from a psychiatric standpoint -appreciate ID consult -changed out suprapubic catheter on 10/23/16 (mom performs this) Schizoaffective bipolar disorder- as above Asthma quiescent -continue Albuterol Hypokalemia-potassium 2.9 on admission and replaced almost daily. Potassium was 3.7 on the day of discharge. Review of labs shows potassium worsened when Topamax dose was increased. -Continue potassium chloride 20 mEq by mouth once daily after discharge Migraines -much improved since increasing her Topamax dose. Follows with neurology cont Topamax but consider decreasing dose as may be causing her hypokalemia Decubitus ulcers buttocks bilaterally stage 2, not POA -labor custodian consult, covered with Optifoam for now Full code - Heparin prophylaxis Total Time Spent: Greater than 30 minutes This includes examination of the patient, discharge planning, medication reconciliation, and communication with other providers. Discharge Instructions Please refer to the electronic Patient Visit Report (Discharge Instructions) for additional information. Follow-Up With PCP within one week Additional Copies To Darvin Lea D.O.Int.Med."
[2016-11-18] MEDS ORDERED: XRL10 PO (10:36)
[2016-11-18] MEDS ORDERED: CPR500 PO (10:36)
[2016-12-28] MEDS ORDERED: DFL100 PO (10:32)
[2017-01-11] MEDS ORDERED: LEVO25TA5 PO (13:23)
[2017-01-11] MEDS ORDERED: BENZ100C84 PO (16:58)
[2017-01-11] MEDS ORDERED: XPNINS NEB (17:08)
[2017-01-14] MEDS ORDERED: [UNRECOGNIZED DRUG - CODE] IART (10:53)
[2017-01-14] MEDS ORDERED: RIVA1.5T PO (12:41)
[2017-02-10] MEDS ORDERED: PANT40TA2 PO (16:40)
[2017-02-14] MEDS ORDERED: MTRG45 TOP (15:35)
[2017-02-14] MEDS ORDERED: [UNRECOGNIZED DRUG - CODE] IV (15:35)
[2017-02-14] MEDS ORDERED: PANT40TA2 PO (15:35)
[2017-02-14] MEDS ORDERED: XRL20 PO (15:35)
[2017-02-14] MEDS ORDERED: POTA10CA28 PO (16:29)
[2017-02-14] MEDS ORDERED: MGNO400 PO (16:29)
[2017-03-09] MEDS ORDERED: DOXYCYLINE PO (12:59)
[2017-03-09] MEDS ORDERED: TOBRAMYCIN PO (12:59)
[2017-03-15] MEDS ORDERED: CHOL200010 PO (13:04)
[2017-03-15] MEDS ORDERED: ADVIN50/60 INH (13:04)
[2017-03-15] MEDS ORDERED: NRT/25 PO (13:23)
[2017-03-15] MEDS ORDERED: MGRSP NAE (13:52)
[2017-03-15] MEDS ORDERED: MECL1TAB42 PO (13:52)
[2017-03-15] MEDS ORDERED: WOUN1PAD EXT (13:52)
[2017-03-15] MEDS ORDERED: VTMB12 PO (15:08)
[2017-03-15] MEDS ORDERED: LINA1CAP2 PO (16:40)
[2017-03-15] MEDS ORDERED: GABA1CAP4 PO (16:40)
[2017-03-15] MEDS ORDERED: HYOS1TAB PO (16:40)
[2017-03-15] MEDS ORDERED: FERR1TAB62 PO (17:26)
[2017-03-15] MEDS ORDERED: SENN1TAB80 PO (17:28)
[2017-03-15] MEDS ORDERED: [UNRECOGNIZED DRUG - CODE] PO (19:25)
[2017-03-15] MEDS ORDERED: BENZ-88 PO (22:29)
[2017-04-05] MEDS ORDERED: TOPI1CAP12 PO (13:18)
[2017-04-10] MEDS ORDERED: GENTAMYCIN PO (12:44)
[2017-04-12] MEDS ORDERED: DAPT500I IV (14:52)
[2017-04-12] MEDS ORDERED: OXYC-57 PO (14:52)
[2017-04-20] MEDS ORDERED: METR-162 PO (14:31)
[2017-04-24] MEDS ORDERED: CEFE2INJ2 (14:58)
[2017-04-24] MEDS ORDERED: VENL37.593 PO (14:58)
[2017-04-24] MEDS ORDERED: ZOLM1TAB3 PO (14:58)
[2017-04-24] MEDS ORDERED: LEVO75TA PO (14:58)
[2017-04-24] MEDS ORDERED: ATR25 PO (14:58)
[2017-04-24] MEDS ORDERED: RISP1TAB68 PO (14:58)
[2017-05-11] MEDS ORDERED: SENN1TAB80 PO (13:46)
[2017-05-11] MEDS ORDERED: DAPT500I IV (13:46)
[2017-05-11] MEDS ORDERED: MRLP17X PO (13:46)
[2017-05-11] MEDS ORDERED: [UNRECOGNIZED DRUG - CODE] IV (13:46)
[2017-05-11] MEDS ORDERED: RISP1TAB68 PO (14:18)
[2017-05-11] MEDS ORDERED: RXC5 PO (14:18)
[2017-05-11] MEDS ORDERED: ZFRI4 IV (14:18)
== END 2016-10-26 17:07 | disposition home health service (06) | DRG 689 ==
LOC: ENRESERVDT → ENRESERVTM → C.EDB 15:00 → C.4E 21:30 → EDBEDREQ 21:34
PROVIDERS: ADMIT Internal Medicine; ATTEND Family Medicine
DX: N10 Acute pyelonephritis (principal); G93.41 Metabolic encephalopathy; G91.9 Hydrocephalus, unspecified; Q05.4 Unspecified spina bifida with hydrocephalus; F41.9 Anxiety disorder, unspecified; K31.84 Gastroparesis; Z98.2 Presence of cerebrospinal fluid drainage device; K21.9 Gastro-esophageal reflux disease without esophagitis; E87.6 Hypokalemia; F22 Delusional disorders; G43.909 Migraine, unspecified, not intractable, without status migrainosus; Z88.2 Allergy status to sulfonamides; J45.909 Unspecified asthma, uncomplicated; F29 Unspecified psychosis not due to a substance or known physiological condition; K59.00 Constipation, unspecified; L89.322 Pressure ulcer of left buttock, stage 2; L89.312 Pressure ulcer of right buttock, stage 2; Z87.440 Personal history of urinary (tract) infections; B96.5 Pseudomonas (aeruginosa) (mallei) (pseudomallei) as the cause of diseases classified elsewhere; Z16.35 Resistance to multiple antimicrobial drugs; Z89.511 Acquired absence of right leg below knee; Z89.512 Acquired absence of left leg below knee

== ENCOUNTER → 2016-10-27 | Outpatient (CLI) | payer BC, OTHER ==
[~2016-10-27] MED LIST changes: +ADVIN50/60 INH; +ALBU18002 INH; +ARIP1TAB PO; +ATR25 PO; +BENZ-88 PO; +BENZ100C7 PO; +BENZ100C84 PO; +CEFE2INJ2; +CHOL200010 PO; +CLON0.5T3 PO; +CPR500 PO; +DAPT500I IV; +DFL100 PO; +DIPH25CA5 PO; +DOXYCYLINE PO; +FERR1TAB62 PO; +FLUC100T4 PO; +GABA1CAP4 PO; +GENTAMYCIN PO; +GUAI1TAB68 PO; +HYDR-3124 PO; +HYOS1TAB PO; +INDO1CAP34 PO; +LEVO25TA5 PO; +LEVO50TA6 PO; +LEVO75TA PO; +LINA1CAP2 PO; +LITH1TAB PO; +LITH600C PO; +MCRK20 PO; +MECL1TAB42 PO; +METR-162 PO; +METR0.7527 TOP; +MGNO400 PO; +MGRSP NAE; +MICO1POW8 TOP; +MISCCAP80 PO; +MRLP17X PO; +MTRCR45 TP; +MTRG45 TOP; +MULTTAB58 PO; +NITR-5 PO; +NORE-39 PO; +NORT75CA PO; +NRT/25 PO; +ONDA4TAB10 SL; +OXYC-57 PO; +PANT40TA PO; +PANT40TA2 PO; +POTA10CA28 PO; +RISP1TAB3 PO; +RISP1TAB68 PO; +RIVA1.5T PO; +RIVA1TAB4 PO; +RSP1 PO; +RXC5 PO; +SNG10 PO; +TOBRAMYCIN PO; +TOPI1CAP12 PO; +TOPI1CAP3 PO; +TPM25 PO; +ULT50 PO; +VENL37.593 PO; +VTMB12 PO; +WOUN1PAD EXT; +XPNINS NEB; +XRL10 PO; +XRL15 PO; +XRL20 PO; +ZFRI4 IV; +ZNT/150 PO; +ZOLM1TAB3 PO; +[UNRECOGNIZED DRUG - CODE] IART; +[UNRECOGNIZED DRUG - CODE] IV; +[UNRECOGNIZED DRUG - CODE] IV; +[UNRECOGNIZED DRUG - CODE] IV; +[UNRECOGNIZED DRUG - CODE] IV; +[UNRECOGNIZED DRUG - CODE] PO
[2016-10-27 12:19] LABS: HEMATOCRIT 38.5 % (37-47); MEAN CELL VOLUME 94.4 fL (80-100); MEAN CORPUSCULAR HEMOGLOBIN 29.7 pg (25-34); MEAN CORPUSCULAR HGB CONC 31.4 g/dl (32-36); MEAN PLATELET VOLUME 10.2 fL (7.4-10.4); PLATELET COUNT 190 K/uL (130-400); RED BLOOD COUNT 4.08 M/uL (4.2-5.4); WHITE BLOOD COUNT 10.72 K/uL (4.8-10.8)
[2016-10-27 12:52] LABS: ALT/SGPT 18 U/L (12-78); BLOOD UREA NITROGEN 12 mg/dl (7-18); BUN/CREATININE RATIO 19.7 (10-20); CARBON DIOXIDE 21 mmol/L (21-32); CHLORIDE 114 mmol/L (98-107); CREATININE 0.62 mg/dl (0.60-1.20); GLUCOSE 91 mg/dl (70-99); POTASSIUM 3.7 mmol/L (3.5-5.1); SODIUM 142 mmol/L (136-145)
[2016-10-27 12:55] LABS: ALB/GLOB RATIO 0.6 (0.9-2); ALKALINE PHOSPHATASE 70 U/L (45-117); AST/SGOT 10 U/L (15-37)
[2016-10-27 12:58] LABS: CALCIUM 8.6 mg/dl (8.5-10.1)
== END | disposition home or self-care (01) ==
LOC: C.LABSPEC 11:41
PROVIDERS: ATTEND Internal Medicine Infectious Disease
DX: N39.0 Urinary tract infection, site not specified (principal)

== ENCOUNTER 2016-10-30 15:16 | Emergency (ER) | payer BC, OTHER ==
[~2016-10-30] VITALS: Ht 119.4 cm; Wt 106.0 kg
[~2016-10-30 15:16] MED LIST changes: -ADVIN50/60 INH; -ALBU18002 INH; -ARIP1TAB PO; -ATR25 PO; -BENZ-88 PO; -BENZ100C7 PO; -BENZ100C84 PO; -CEFE2INJ2; -CHOL200010 PO; -CLON0.5T3 PO; -CPR500 PO; -DAPT500I IV; -DFL100 PO; -DIPH25CA5 PO; -DOXYCYLINE PO; -FERR1TAB62 PO; -FLUC100T4 PO; -GABA1CAP4 PO; -GENTAMYCIN PO; -GUAI1TAB68 PO; -HYDR-3124 PO; -HYOS1TAB PO; -INDO1CAP34 PO; -LEVO25TA5 PO; -LEVO50TA6 PO; -LEVO75TA PO; -LINA1CAP2 PO; -LITH1TAB PO; -LITH600C PO; -MECL1TAB42 PO; -METR-162 PO; -METR0.7527 TOP; -MGNO400 PO; -MGRSP NAE; -MICO1POW8 TOP; -MISCCAP80 PO; -MRLP17X PO; -MTRCR45 TP; -MTRG45 TOP; -MULTTAB58 PO; -NITR-5 PO; -NORE-39 PO; -NORT75CA PO; -NRT/25 PO; -ONDA4TAB10 SL; -OXYC-57 PO; -PANT40TA PO; -PANT40TA2 PO; -POTA10CA28 PO; -RISP1TAB3 PO; -RISP1TAB68 PO; -RIVA1.5T PO; -RIVA1TAB4 PO; -RSP1 PO; -RXC5 PO; -SNG10 PO; -TOBRAMYCIN PO; -TOPI1CAP12 PO; -TOPI1CAP3 PO; -TPM25 PO; -ULT50 PO; -VENL37.593 PO; -VTMB12 PO; -WOUN1PAD EXT; -XPNINS NEB; -XRL10 PO; -XRL15 PO; -XRL20 PO; -ZFRI4 IV; -ZNT/150 PO; -ZOLM1TAB3 PO; -[UNRECOGNIZED DRUG - CODE] IART; -[UNRECOGNIZED DRUG - CODE] IV; -[UNRECOGNIZED DRUG - CODE] IV; -[UNRECOGNIZED DRUG - CODE] IV; -[UNRECOGNIZED DRUG - CODE] PO
[2016-10-30 15:17] VITALS: TEMP 36.4; Ht 119.4 cm; Wt 106.0 kg
[2016-10-30] MEDS ORDERED: METHYLPREDNISOLONE 125 MG VIAL IV STA (15:43)
[2016-10-30] MEDS ORDERED: SODIUM CHLORIDE 0.9% 1000ML 1,000 ML IV STA (15:43)
[2016-10-30] MEDS ORDERED: ALBUT/IPRATROP 3MG/0.5MG NEB 3 ML VIAL INH STA (15:43)
[2016-10-30] MEDS ORDERED: LORAZEPAM 2 MG/ML 1 ML VIAL IV STA (15:43)
--- NOTE | 2016-10-30 15:50 | EMERGENCY ROOM VISIT NOTE ---
"History Report prepared by James: Conner Hensley Under the Supervision of: Dr. Eloy Haile D.O. First contact with patient: 15:30 Chief Complaint: SHORTNESS OF BREATH Stated Complaint: ASTHMA, SOB Nursing Triage Summary: pt with hx of asthma increased sob today rescue inhalers and neb tx no help ,pt currently has implanted port accessed DT recieving abx at home History of Present Illness The patient is a 31 year old female who presents to the Emergency Room with complaints of worsening shortness of breath that began shortly prior to arrival. The patient states that she was feeling fine this morning, but began to get significantly short of breath after eating lunch today. She used her inhaler twice and had one nebulizer treatment since her symptoms onset. The patient has a history of asthma, as well as spina bifida. 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 A total of 10 systems reviewed and were otherwise negative. Past Medical & Surgical Medical Problems: (1) Allergic reaction caused by a drug (2) Anxiety (3) Bipolar 1 disorder (4) Depression (5) Gastroparesis (6) GERD (gastroesophageal reflux disease) (7) Hydrocephalus (8) Intractable headache (9) Migraines (10) MRSA (methicillin resistant Staphylococcus aureus) (11) Osteomyelitis (12) Shunt placement with revision x8 (13) Spina bifida (14) UTI (urinary tract infection) Surgical Problems: (1) S/P BKA (below knee amputation) bilateral Family History Cancer Diabetes mellitus Lung disease Social History Smoking Status: Never Smoker Alcohol Use: none Drug Use: none Marital Status: single Housing Status: lives with family Occupation Status: disabled Current/Historical Medications Scheduled Aripiprazole (Abilify), 1 TAB PO DAILY Ceftolozane Sulfate-Tazobactam (Zerbaxa 1-0.5 gm), 1.5 GM IV Q8H Cholecalciferol (Vitamin D), 2,000 INTER.UNIT PO DAILY Clonazepam (Klonopin), 0.5 MG PO BID Cyanocobalamin (Vitamin B-12), 500 MG PO BID Docusate Sodium (Dulcolax Stool Softener), 100 MG PO BID Docusate Sodium (Docusate Sodium), 1 CAP PO BID Ethinyl Estradiol/Norethindr (Loestrin 1.5/30-21 1.5-30 mg-Mcg), 1 TAB PO DAILY Ferrous Sulfate (Kp Ferrous Sulfate), 1 TAB PO BIDM Fluticasone Prop/Salmeterol (Advair Diskus 500/50 60 Dose), 1 PUFF INH BID Gabapentin (Gabapentin), 300 MG PO TID Hydroxyzine Hcl (Atarax), 25 MG PO QD@1200 Hyoscyamine Sulfate (Levsin), 0.125 MG PO QID Levothyroxine Sodium (Levothyroxine Sodium), 25 MG PO DAILY Linaclotide (Linzess), 290 MCG PO QAM [place] Carbonate ([place] Carbonate), 600 MG PO HS [place] Carbonate ([place] Carbonate ER), 450 MG PO QAM Multiple Vitamin (Multivitamin), 1 TAB PO DAILY Nortriptyline Hcl (Pamelor), 75 MG PO HS Nortriptyline Hcl (Pamelor), 25 MG PO HS Pantoprazole (Pantoprazole Sodium), 40 MG PO QAM Potassium Chloride (Klor-Con M20), 20 MEQ PO DAILY Probiotic Product (Probiotic), 1 TAB PO BID Ranitidine (Zantac), 150 MG PO HS Sennosides (Senna Lax), 8.6 MG PO DAILY Topiramate (Topamax ), 75 MG PO BID Wound Dressings (Hydrofera Blue Foam Dress), 1 APPLN TOP DAILY Scheduled PRN Acetaminophen (Acetaminophen Extra Stren), 500-1,000 MG PO Q6H PRN for Pain Albuterol Hfa (Ventolin Hfa), 2 PUFFS INH Q4 PRN for Shortness of Breath Dihydroergotamine Mesylate (Migranal), 4 MG NA UD PRN for Migraine Hydroxyzine HCl (Hydroxyzine Pamoate), 25 MG PO Q8 PRN for Anxiety Indomethacin (Indocin), 25 MG PO TID PRN for Headache Ketorolac Tromethamine (Ketorolac Tromethamine), 10-20 MG PO UD PRN for Headache Meclizine Hcl (Meclizine Hcl), 1 TAB PO TID PRN for Dizziness or Vertigo Nystatin (Topical) (Nystop), 1 APPL TOP UD PRN for SKIN IMPAIRMENT Ondansetron (Ondansetron HCl), 4 MG PO DAILY PRN for Nausea Tramadol (Ultram), 50 MG PO Q4H PRN for Pain Miscellaneous Medications Nystatin/Triamcinolone (Mycolog ||) Allergies Coded Allergies: Adhesives (Verified Allergy, Intermediate, TAPE- HIVES, 10/20/16) Ceftriaxone (Verified Allergy, Intermediate, rash, 10/20/16) Chlorhexidine (Verified Allergy, Intermediate, RASH, 10/20/16) Ciprofloxacin (Verified Allergy, Intermediate, hives, 10/20/16) Latex (Verified Allergy, Intermediate, hives, 09/29/16) Levofloxacin (Verified Allergy, Intermediate, rash, 10/20/16) Linezolid (Verified Allergy, Intermediate, rash, 10/20/16) Piperacillin (Verified Allergy, Intermediate, SEVERE RASH, HIVES, 09/29/16) Tazobactam (Verified Allergy, Intermediate, SEVERE RASH, HIVES, 10/20/16) Vancomycin (Verified Allergy, Intermediate, rash, 10/20/16) Tobramycin (Verified Allergy, Mild, MILD RASH ON ARM, RED FACE, 10/20/16) IMPROVED AFTER BENADRYL, TAKING REST OF DOSE Amikacin (Verified Allergy, Unknown, PER DR ROBINS,RXN WAS TO ZOSYN NOT AMKrash;hives, 10/20/16) Sulfamethoxazole w/Trimethoprim (Verified Allergy, Unknown, Hives, 10/20/16 ) Can be pretreated with 10mg Zytrec 45 min prior to admin Physical Exam Vital Signs Date Time Temp Pulse Resp B/P Pulse Ox O2 Delivery O2 Flow Rate FiO2 10/30/16 20:29 110 18 122/78 97 10/30/16 17:13 112 20 124/88 98 Room Air 10/30/16 15:39 115 10/30/16 15:17 36.4 130 30 125/74 95 Room Air Physical Exam GENERAL: Patient is awake, alert, and mildly anxious appearing, but comfortable. EYES: The conjunctivae are clear. The pupils are round and reactive. EARS, NOSE, MOUTH AND THROAT: The nose is without any evidence of any deformity. Mucous membranes are dry tongue is midline NECK: The neck is nontender and supple. RESPIRATORY: Breath sounds are diminished throughout, expiratory wheezing noted , mild tachypnea noted, no conversational dyspnea. CARDIOVASCULAR: Tachycardiac rate and rhythm noted there no murmurs rubs or gallops to auscultation normal S1 normal S2 GASTROINTESTINAL: The abdomen is soft. Bowel sounds are present in all quadrants. Abdomen is nontender MUSCULOSKELETAL/EXTREMITIES: Bilateral lower extremity amputations noted. SKIN: There is no obvious evidence of any rash. There are no petechiae, pallor or cyanosis noted. NEUROLOGIC: Patient is awake alert and oriented x3. Medical Decision & Procedures ER Provider Diagnostic Interpretation: Radiology results as stated below per my review and radiologist interpretation: CHEST ONE VIEW PORTABLE HISTORY: EVALUATE RESPIRATORY DISTRESS.DYSPNEA COMPARISON: Chest 08/06/2016. FINDINGS: Low lung volumes. No pneumothorax. There is a right-sided shunt catheter, unchanged. Right jugular central venous catheter terminates in the right atrium. This is also unchanged. Bibasilar linear densities suggest subsegmental atelectasis. No new focal lung consolidations. No evidence for pulmonary edema. The heart remains borderline enlarged. IMPRESSION: No change compared to the prior study. Low lung volumes and bibasilar subsegmental atelectasis persist. Electronically signed by: Edward Dixon M.D. 10/30/2016 4:43 PM Dictated Date/Time: 10/30/2016 4:41 PM Laboratory Results 10/30/16 16:07 Red Blood Count 4.46, Mean Corpuscular Volume 94.6, Mean Corpuscular Hemoglobin 28.3, Mean Corpuscular Hemoglobin Concent 29.9, Mean Platelet Volume 9.8, Neutrophils (%) (Auto) 70.1, Lymphocytes (%) (Auto) 18.7, Monocytes (%) (Auto) 6.7, Eosinophils (%) (Auto) 4.0, Basophils (%) (Auto) 0.3, Neutrophils # (Auto) 6.97, Lymphocytes # (Auto) 1.86, Monocytes # (Auto) 0.67, Eosinophils # (Auto) 0.40, Basophils # (Auto) 0.03 10/30/16 16:07 Test 10/30/16 16:07 10/30/16 17:00 White Blood Count 9.95 K/uL (4.8-10.8) Red Blood Count 4.46 M/uL (4.2-5.4) Hemoglobin 12.6 g/dL (12.0-16.0) Hematocrit 42.2 % (37-47) Mean Corpuscular Volume 94.6 fL (80-100) Mean Corpuscular Hemoglobin 28.3 pg (25-34) Mean Corpuscular Hemoglobin Concent 29.9 g/dl (32-36) Platelet Count 178 K/uL (130-400) Mean Platelet Volume 9.8 fL (7.4-10.4) Neutrophils (%) (Auto) 70.1 % Lymphocytes (%) (Auto) 18.7 % Monocytes (%) (Auto) 6.7 % Eosinophils (%) (Auto) 4.0 % Basophils (%) (Auto) 0.3 % Neutrophils # (Auto) 6.97 K/uL (1.4-6.5) Lymphocytes # (Auto) 1.86 K/uL (1.2-3.4) Monocytes # (Auto) 0.67 K/uL (0.11-0.59) Eosinophils # (Auto) 0.40 K/uL (0-0.5) Basophils # (Auto) 0.03 K/uL (0-0.2) RDW Standard Deviation 50.2 fL (36.4-46.3) RDW Coefficient of Variation 14.5 % (11.5-14.5) Immature Granulocyte % (Auto) 0.2 % Immature Granulocyte # (Auto) 0.02 K/uL (0.00-0.02) Prothrombin Time 12.1 SECONDS (9.0-12.0) Prothromb Time International Ratio 1.1 (0.9-1.1) Activated Partial Thromboplast Time 27.8 SECONDS (21.0-31.0) Partial Thromboplastin Ratio 1.1 Venous Blood pH 7.35 (7.36-7.41) Venous Blood Partial Pressure CO2 31 mmHg (38.0-50.0) Venous Blood Partial Pressure O2 44 mmHg Venous Blood HCO3 17 mmol/L Venous Blood Oxygen Saturation 76.1 % Venous Blood Base Excess -7.8 mmol/L Anion Gap 10.0 mmol/L (3-11) Est Creatinine Clear Calc Drug Dose 87.0 ml/min Estimated GFR () 119.1 Estimated GFR (Non- 102.7 BUN/Creatinine Ratio 8.8 (10-20) Calcium Level 8.2 mg/dl (8.5-10.1) Total Bilirubin 0.1 mg/dl (0.2-1) Aspartate Amino Transf (AST/SGOT) 9 U/L (15-37) Alanine Aminotransferase (ALT/SGPT) 21 U/L (12-78) Alkaline Phosphatase 82 U/L (45-117) Troponin I < 0.015 ng/ml (0-0.045) Total Protein 7.1 gm/dl (6.4-8.2) Albumin 2.8 gm/dl (3.4-5.0) Globulin 4.3 gm/dl (2.5-4.0) Albumin/Globulin Ratio 0.7 (0.9-2) Urine Color YELLOW Urine Appearance CLOUDY (CLEAR) Urine pH 6.0 (4.5-7.5) Urine Specific [place] 1.007 (1.000-1.030) Urine Protein NEG (NEG) Urine Glucose (UA) NEG (NEG) Urine Ketones NEG (NEG) Urine Occult Blood 1+ (NEG) Urine Nitrite NEG (NEG) Urine Bilirubin NEG (NEG) Urine Urobilinogen NEG (NEG) Urine Leukocyte Esterase MODERATE (NEG) Urine WBC (Auto) 10-30 /hpf (0-5) Urine RBC (Auto) 0-4 /hpf (0-4) Urine Hyaline Casts (Auto) 5-10 /lpf (0-5) Urine Epithelial Cells (Auto) >30 /lpf (0-5) Urine Bacteria (Auto) NEG (NEG) Urine Yeast (Auto) BUD W/ HYPHAE (NONE PRSENT) Laboratory results per my review. Medications Administered Medications (Trade) Dose Ordered Sig/Brenna Route Start Time Stop Time Status Last Admin Dose Admin Sodium Chloride (Nss 1000ml) 1,000 ml @ 999 mls/hr Q1H1M STAT IV 10/30/16 15:43 10/30/16 16:43 DC 10/30/16 16:09 999 MLS/HR Methylprednisolone Sodium Succinate (Solu-Medrol IV) 125 mg NOW STAT IV 10/30/16 15:43 10/30/16 15:45 DC 10/30/16 16:07 125 MG Lorazepam (Ativan Inj) 1 mg NOW STAT IV 10/30/16 15:43 10/30/16 15:45 DC 10/30/16 16:07 1 MG Albuterol/ Ipratropium (Duoneb) 3 ml NOW STAT INH 10/30/16 15:43 10/30/16 15:45 DC 10/30/16 16:07 3 ML ECG Indication: SOB/dyspnea Rate (beats per minute): 113 Rhythm: sinus tachycardia Findings: no acute ischemic change, no ectopy Comparison ECG Date: 06/12/2015 Change: no significant change ED Course 1530: The patient was evaluated in room A12. A complete history and physical examination were performed. 1542: Ordered Duoneb 3 mL INH, Ativan 1 mg IV, Solu-Medrol 125 mg IV, Sodium Chloride 1000 mL @ 999 mL/hr IV. 1943: I reevaluated the patient at this time. She was improved. 2020: Upon reevaluation, the patient is resting in bed. I discussed the results and treatment plan with her. She verbalized agreement of the treatment plan. The patient was discharged home. Medical Decision Blood pressure screening: Patient was found to have an elevated blood pressure and was referred to their primary doctor for recheck and further treatment. Medication Reconciliation: I attest that I have personally reviewed the patient' s current medications list. Differential diagnosis: Etiologies such as infections, reactive airway disease, pneumonia, pneumothorax , COPD, CHF, cardiac ischemia, pulmonary embolism, musculoskeletal, gastrointestinal, as well as others were entertained. The patient is a 31-year-old female who presented to the emergency department for an evaluation of asthma exacerbation. The patient also has significant anxiety. The patient was treated with bronchodilators IV steroids as well as IV fluids. She was also given medications for anxiety. She was reevaluated multiple times. On subsequent reevaluation she was feeling much better. She also received her home dose of antibiotics for persistent urinary tract infection. She was also encouraged to continue to follow-up with her primary care physician. A urine specimen was sent for culture today. She was encouraged to follow-up with her family doctor soon as possible but return to the emergency department immediately if symptoms change worsen or the need arises. Impression Primary Impression: Asthma with exacerbation Additional Impression: Chronic UTI (urinary tract infection) Scribe Attestation The scribe's documentation has been prepared under my direction and personally reviewed by me in its entirety. I confirm that the note above accurately reflects all work, treatment, procedures, and medical decision making performed by me. Departure Information Dispostion Home / Self-Care Referrals Lea, Darvin T., D.O.Int.Med. (PCP) Forms HOME CARE DOCUMENTATION FORM, IMPORTANT VISIT INFORMATION Patient Instructions My [employer] Additional Instructions Rest and avoid any strenuous activity. Follow-up with your family doctor soon as possible. Continue all medications as prescribed. Problem Qualifiers Primary Impression: Asthma with exacerbation Asthma severity: unspecified severity Qualified Codes: J45.901 - Unspecified asthma with (acute) exacerbation"
[2016-10-30 16:13] LABS: HEMATOCRIT 42.2 % (37-47); MEAN CELL VOLUME 94.6 fL (80-100); MEAN CORPUSCULAR HEMOGLOBIN 28.3 pg (25-34); MEAN CORPUSCULAR HGB CONC 29.9 g/dl (32-36); MEAN PLATELET VOLUME 9.8 fL (7.4-10.4); PLATELET COUNT 178 K/uL (130-400); RED BLOOD COUNT 4.46 M/uL (4.2-5.4); VEN BLD GAS O2 SATURATION 76.1 %; VEN BLOOD GAS BASE EXCESS -7.8 mmol/L; WHITE BLOOD COUNT 9.95 K/uL (4.8-10.8)
[2016-10-30 16:23] LABS: INR 1.1 (0.9-1.1); PARTIAL THROMBOPLASTIN RATIO 1.1; PROTHROMBIN TIME (PATIENT) 12.1 SECONDS (9.0-12.0)
[2016-10-30 16:31] LABS: ALT/SGPT 21 U/L (12-78); AST/SGOT 9 U/L (15-37); BLOOD UREA NITROGEN 7 mg/dl (7-18); BUN/CREATININE RATIO 8.8 (10-20); CALCIUM 8.2 mg/dl (8.5-10.1); CARBON DIOXIDE 19 mmol/L (21-32); CHLORIDE 116 mmol/L (98-107); CREATININE 0.78 mg/dl (0.60-1.20); GLUCOSE 133 mg/dl (70-99); SODIUM 145 mmol/L (136-145)
[2016-10-30 16:32] LABS: BASO % 0.3 %; BASO ABS # 0.03 K/uL (0-0.2); COMPLETE YES; IG% 0.2 %; LYMPH % 18.7 %; LYMPH ABS # 1.86 K/uL (1.2-3.4); MONO % 6.7 %; NEUT % 70.1 %
[2016-10-30 16:35] LABS: ALB/GLOB RATIO 0.7 (0.9-2); ALKALINE PHOSPHATASE 82 U/L (45-117)
--- NOTE | 2016-10-30 16:44 | DIAGNOSTIC IMAGING REPORT ---
CHEST ONE VIEW PORTABLE HISTORY: EVALUATE RESPIRATORY DISTRESS.DYSPNEA COMPARISON: Chest 08/06/2016. FINDINGS: Low lung volumes. No pneumothorax. There is a right-sided shunt catheter, unchanged. Right jugular central venous catheter terminates in the right atrium. This is also unchanged. Bibasilar linear densities suggest subsegmental atelectasis. No new focal lung consolidations. No evidence for pulmonary edema. The heart remains borderline enlarged. IMPRESSION: No change compared to the prior study. Low lung volumes and bibasilar subsegmental atelectasis persist. Electronically signed by: Edward Dixon M.D. 10/30/2016 4:43 PM Dictated Date/Time: 10/30/2016 4:41 PM
[2016-10-30 17:30] LABS: MANUAL MICROSCOPIC REQUIRED? NO; REVIEW REQ? YES; URINE APPEARANCE CLOUDY (CLEAR); URINE BILIRUBIN NEG (NEG); URINE COLOR YELLOW; URINE EPITHELIAL CELL AUTO >30 /lpf (0-5); URINE NITRITE NEG (NEG); URINE SPECIFIC GRAVITY 1.007 (1.000-1.030); UROBILINOGEN NEG (NEG)
[2016-10-30 20:29] VITALS: BP 122/78; PULSE 110; O2SAT 97
[2016-11-18] MEDS ORDERED: CPR500 PO (10:36)
[2016-11-18] MEDS ORDERED: XRL10 PO (10:36)
[2016-12-28] MEDS ORDERED: DFL100 PO (10:32)
[2017-01-11] MEDS ORDERED: LEVO25TA5 PO (13:23)
[2017-01-11] MEDS ORDERED: BENZ100C84 PO (16:58)
[2017-01-11] MEDS ORDERED: XPNINS NEB (17:08)
[2017-01-14] MEDS ORDERED: [UNRECOGNIZED DRUG - CODE] IART (10:53)
[2017-01-14] MEDS ORDERED: RIVA1.5T PO (12:41)
[2017-02-10] MEDS ORDERED: PANT40TA2 PO (16:40)
[2017-02-14] MEDS ORDERED: PANT40TA2 PO (15:35)
[2017-02-14] MEDS ORDERED: MTRG45 TOP (15:35)
[2017-02-14] MEDS ORDERED: XRL20 PO (15:35)
[2017-02-14] MEDS ORDERED: [UNRECOGNIZED DRUG - CODE] IV (15:35)
[2017-02-14] MEDS ORDERED: MGNO400 PO (16:29)
[2017-02-14] MEDS ORDERED: POTA10CA28 PO (16:29)
[2017-03-09] MEDS ORDERED: TOBRAMYCIN PO (12:59)
[2017-03-09] MEDS ORDERED: DOXYCYLINE PO (12:59)
[2017-03-15] MEDS ORDERED: CHOL200010 PO (13:04)
[2017-03-15] MEDS ORDERED: ADVIN50/60 INH (13:04)
[2017-03-15] MEDS ORDERED: NRT/25 PO (13:23)
[2017-03-15] MEDS ORDERED: MECL1TAB42 PO (13:52)
[2017-03-15] MEDS ORDERED: MGRSP NAE (13:52)
[2017-03-15] MEDS ORDERED: WOUN1PAD EXT (13:52)
[2017-03-15] MEDS ORDERED: VTMB12 PO (15:08)
[2017-03-15] MEDS ORDERED: HYOS1TAB PO (16:40)
[2017-03-15] MEDS ORDERED: LINA1CAP2 PO (16:40)
[2017-03-15] MEDS ORDERED: GABA1CAP4 PO (16:40)
[2017-03-15] MEDS ORDERED: FERR1TAB62 PO (17:26)
[2017-03-15] MEDS ORDERED: SENN1TAB80 PO (17:28)
[2017-03-15] MEDS ORDERED: [UNRECOGNIZED DRUG - CODE] PO (19:25)
[2017-03-15] MEDS ORDERED: BENZ-88 PO (22:29)
[2017-04-05] MEDS ORDERED: TOPI1CAP12 PO (13:18)
[2017-04-10] MEDS ORDERED: GENTAMYCIN PO (12:44)
[2017-04-12] MEDS ORDERED: DAPT500I IV (14:52)
[2017-04-12] MEDS ORDERED: OXYC-57 PO (14:52)
[2017-04-20] MEDS ORDERED: METR-162 PO (14:31)
[2017-04-24] MEDS ORDERED: LEVO75TA PO (14:58)
[2017-04-24] MEDS ORDERED: ATR25 PO (14:58)
[2017-04-24] MEDS ORDERED: VENL37.593 PO (14:58)
[2017-04-24] MEDS ORDERED: ZOLM1TAB3 PO (14:58)
[2017-04-24] MEDS ORDERED: RISP1TAB68 PO (14:58)
[2017-04-24] MEDS ORDERED: CEFE2INJ2 (14:58)
[2017-05-11] MEDS ORDERED: SENN1TAB80 PO (13:46)
[2017-05-11] MEDS ORDERED: MRLP17X PO (13:46)
[2017-05-11] MEDS ORDERED: DAPT500I IV (13:46)
[2017-05-11] MEDS ORDERED: [UNRECOGNIZED DRUG - CODE] IV (13:46)
[2017-05-11] MEDS ORDERED: RISP1TAB68 PO (14:18)
[2017-05-11] MEDS ORDERED: ZFRI4 IV (14:18)
[2017-05-11] MEDS ORDERED: RXC5 PO (14:18)
== END 2016-10-30 20:34 | disposition home or self-care (01) ==
LOC: C.EDB 15:18 → C.EDA 20:34
DX: J45.901 Unspecified asthma with (acute) exacerbation (principal); N39.0 Urinary tract infection, site not specified; F41.9 Anxiety disorder, unspecified; F31.9 Bipolar disorder, unspecified; F32.9 Major depressive disorder, single episode, unspecified; K21.9 Gastro-esophageal reflux disease without esophagitis; Q05.9 Spina bifida, unspecified; K31.84 Gastroparesis; M86.9 Osteomyelitis, unspecified; Z89.511 Acquired absence of right leg below knee; Z89.512 Acquired absence of left leg below knee; Z80.9 Family history of malignant neoplasm, unspecified; Z83.3 Family history of diabetes mellitus; Z83.6 Family history of other diseases of the respiratory system; Z79.899 Other long term (current) drug therapy

== ENCOUNTER → 2016-11-01 | Outpatient (CLI) | payer BC, OTHER ==
[~2016-11-01] MED LIST changes: +ADVIN50/60 INH; +ALBU18002 INH; +ARIP1TAB PO; +ATR25 PO; +BENZ-88 PO; +BENZ100C7 PO; +BENZ100C84 PO; +CEFE2INJ2; +CHOL200010 PO; +CLON0.5T3 PO; +CPR500 PO; +DAPT500I IV; +DFL100 PO; +DIPH25CA5 PO; +DOXYCYLINE PO; +FERR1TAB62 PO; +FLUC100T4 PO; +GABA1CAP4 PO; +GENTAMYCIN PO; +GUAI1TAB68 PO; +HYDR-3124 PO; +HYOS1TAB PO; +INDO1CAP34 PO; +LEVO25TA5 PO; +LEVO50TA6 PO; +LEVO75TA PO; +LINA1CAP2 PO; +LITH1TAB PO; +LITH600C PO; +MECL1TAB42 PO; +METR-162 PO; +METR0.7527 TOP; +MGNO400 PO; +MGRSP NAE; +MICO1POW8 TOP; +MISCCAP80 PO; +MRLP17X PO; +MTRCR45 TP; +MTRG45 TOP; +MULTTAB58 PO; +NITR-5 PO; +NORE-39 PO; +NORT75CA PO; +NRT/25 PO; +ONDA4TAB10 SL; +OXYC-57 PO; +PANT40TA PO; +PANT40TA2 PO; +POTA10CA28 PO; +RISP1TAB3 PO; +RISP1TAB68 PO; +RIVA1.5T PO; +RIVA1TAB4 PO; +RSP1 PO; +RXC5 PO; +SNG10 PO; +TOBRAMYCIN PO; +TOPI1CAP12 PO; +TOPI1CAP3 PO; +TPM25 PO; +ULT50 PO; +VENL37.593 PO; +VTMB12 PO; +WOUN1PAD EXT; +XPNINS NEB; +XRL10 PO; +XRL15 PO; +XRL20 PO; +ZFRI4 IV; +ZNT/150 PO; +ZOLM1TAB3 PO; +[UNRECOGNIZED DRUG - CODE] IART; +[UNRECOGNIZED DRUG - CODE] IV; +[UNRECOGNIZED DRUG - CODE] IV; +[UNRECOGNIZED DRUG - CODE] IV; +[UNRECOGNIZED DRUG - CODE] PO
[2016-11-01 17:10] LABS: URINE APPEARANCE CLEAR (CLEAR); URINE BILIRUBIN NEG (NEG); URINE COLOR YELLOW; URINE NITRITE NEG (NEG); URINE SPECIFIC GRAVITY 1.008 (1.000-1.030); UROBILINOGEN NEG (NEG); ZZURINE CULT IF INDIC CATH YES
[2016-11-01 17:12] LABS: MANUAL MICROSCOPIC REQUIRED? NO; REVIEW REQ? YES
== END | disposition home or self-care (01) ==
LOC: C.LABBC 13:47
PROVIDERS: ATTEND Internal Medicine Infectious Disease
DX: N31.9 Neuromuscular dysfunction of bladder, unspecified (principal); N39.0 Urinary tract infection, site not specified

== ENCOUNTER 2016-11-13 19:28 | Inpatient (IN) | payer BC, OTHER ==
[~2016-11-13] VITALS: Ht 157.5 cm; Wt 105.0 kg
[~2016-11-13 19:28] MED LIST changes: -ADVIN50/60 INH; -ALBU18002 INH; -ARIP1TAB PO; -ATR25 PO; -BENZ-88 PO; -BENZ100C7 PO; -BENZ100C84 PO; -CEFE2INJ2; -CHOL200010 PO; -CLON0.5T3 PO; -CPR500 PO; -DAPT500I IV; -DFL100 PO; -DIPH25CA5 PO; -DOXYCYLINE PO; -FERR1TAB62 PO; -FLUC100T4 PO; -GABA1CAP4 PO; -GENTAMYCIN PO; -GUAI1TAB68 PO; -HYDR-3124 PO; -HYOS1TAB PO; -INDO1CAP34 PO; -LEVO25TA5 PO; -LEVO50TA6 PO; -LEVO75TA PO; -LINA1CAP2 PO; -LITH1TAB PO; -LITH600C PO; -MECL1TAB42 PO; -METR-162 PO; -METR0.7527 TOP; -MGNO400 PO; -MGRSP NAE; -MICO1POW8 TOP; -MISCCAP80 PO; -MRLP17X PO; -MTRCR45 TP; -MTRG45 TOP; -MULTTAB58 PO; -NITR-5 PO; -NORE-39 PO; -NORT75CA PO; -NRT/25 PO; -ONDA4TAB10 SL; -OXYC-57 PO; -PANT40TA PO; -PANT40TA2 PO; -POTA10CA28 PO; -RISP1TAB3 PO; -RISP1TAB68 PO; -RIVA1.5T PO; -RIVA1TAB4 PO; -RSP1 PO; -RXC5 PO; -SNG10 PO; -TOBRAMYCIN PO; -TOPI1CAP12 PO; -TOPI1CAP3 PO; -TPM25 PO; -ULT50 PO; -VENL37.593 PO; -VTMB12 PO; -WOUN1PAD EXT; -XPNINS NEB; -XRL10 PO; -XRL15 PO; -XRL20 PO; -ZFRI4 IV; -ZNT/150 PO; -ZOLM1TAB3 PO; -[UNRECOGNIZED DRUG - CODE] IART; -[UNRECOGNIZED DRUG - CODE] IV; -[UNRECOGNIZED DRUG - CODE] IV; -[UNRECOGNIZED DRUG - CODE] IV; -[UNRECOGNIZED DRUG - CODE] IV; -[UNRECOGNIZED DRUG - CODE] PO
[2016-11-13] MEDS ORDERED: ALBUTEROL 0.083% NEBU SOLN 3 ML VIAL INH STA (19:56)
[2016-11-13] MEDS ORDERED: METHYLPREDNISOLONE 125 MG VIAL IV STA (19:56)
[2016-11-13 21:06] LABS: HEMATOCRIT 41.4 % (37-47); MEAN CELL VOLUME 92.8 fL (80-100); MEAN CORPUSCULAR HEMOGLOBIN 28.9 pg (25-34); MEAN CORPUSCULAR HGB CONC 31.2 g/dl (32-36); MEAN PLATELET VOLUME 10.1 fL (7.4-10.4); PLATELET COUNT 214 K/uL (130-400); RED BLOOD COUNT 4.46 M/uL (4.2-5.4); WHITE BLOOD COUNT 19.13 K/uL (4.8-10.8)
[2016-11-13 21:19] LABS: BUN/CREATININE RATIO 10.6 (10-20); CALCIUM 8.2 mg/dl (8.5-10.1); CREATININE 0.79 mg/dl (0.60-1.20); POTASSIUM 3.3 mmol/L (3.5-5.1)
[2016-11-13 21:33] LABS: BASO % 0.2 %; BASO ABS # 0.04 K/uL (0-0.2); COMPLETE YES; EOS % 1.5 %; IG% 0.4 %; LYMPH % 15.7 %; LYMPH ABS # 3.01 K/uL (1.2-3.4); MONO % 5.9 %; NEUT % 76.3 %
--- NOTE | 2016-11-13 21:46 | DIAGNOSTIC IMAGING REPORT ---
CHEST 2 VIEWS ROUTINE CLINICAL HISTORY: cough and sob COMPARISON STUDY: 10/22/2016 FINDINGS: There are very low lung volumes. The heart is mildly enlarged. There is a right internal jugular central venous catheter. A ventriculoperitoneal shunt catheter is visualized. There is no focal pulmonary consolidation.[ There is basilar atelectasis. IMPRESSION: Low lung volumes with hypoventilatory changes at the lung bases. Electronically signed by: Yair Morrison M.D. 11/13/2016 9:45 PM Dictated Date/Time: 11/13/2016 9:43 PM
[2016-11-13] MEDS ORDERED: AZITHROMYCIN 250 MG TAB PO STA (21:58)
[2016-11-13] MEDS ORDERED: ALBUT/IPRATROP 3MG/0.5MG NEB 3 ML VIAL INH STA ×2 (21:58)
[2016-11-13] MEDS ORDERED: NORE-39 PO (22:29)
[2016-11-13 22:32] LABS: VEN BLD GAS O2 SATURATION 73.9 %; VEN BLOOD GAS BASE EXCESS -7.3 mmol/L
[2016-11-13] MEDS ORDERED: BENZONATATE 100MG CAP PO ONE (23:15)
[2016-11-14] VITALS (11 sets, daily range): BP systolic 100–119; BP diastolic 63–79; PULSE 83–111; TEMP 36.5–36.8; O2SAT 96–100; Ht 157.5 cm; Wt 105.0 kg
[2016-11-14] MEDS ORDERED: NYSTATIN POWDER 15GM BTL EXT PRN (00:15)
[2016-11-14] MEDS ORDERED: INDOMETHACIN 25 MG CAP PO PRN (00:15)
[2016-11-14] MEDS ORDERED: TRAMADOL HCL 50 MG TAB PO PRN (00:15)
[2016-11-14] MEDS ORDERED: MECLIZINE HCL 25 MG TAB PO PRN (00:15)
[2016-11-14] MEDS ORDERED: POLYETHYLENE (MIRALAX) 17 GM PACK PO PRN (00:15)
[2016-11-14] MEDS ORDERED: ACETAMINOPHEN 325 MG TAB PO PRN (00:15)
[2016-11-14] MEDS ORDERED: ALUMINUM/MAGNESIUM/SIMETH (MAALOX MAX) 30 ML UDC PO PRN (00:15)
[2016-11-14] MEDS ORDERED: MAGNESIUM HYDROXIDE SUSP 30 ML UDC PO PRN (00:15)
--- NOTE | 2016-11-14 00:41 | History and Physical ---
History & Physical Date & Time of Service: Nov 14, 2016 at 00:20 Chief Complaint: Asthma Cant Breathe After Neb Treatment Primary Care Physician: Darvin Lea D.O.Int.Med. History of Present Illness Source: patient 31 y/o F w/Hx Spina bifida, MILLER HEAD shunt at - 12 revisions, 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 Pt presents with progressive SOB a persistent dry cough and wheezing which is not responding well to her home inhalers. She had multiple respiratory treatments in the ER to minimal effect and continues to exhibit poor air movement. Initial labs are notable for Leukocytosis. She is afebrile and her CXR is not consistent with acute PNM. Past Medical/Surgical History Medical Problems: (1) Anxiety Status: Chronic (2) Bipolar 1 disorder Status: Chronic (3) Depression Status: Chronic (4) Gastroparesis Status: Chronic (5) GERD (gastroesophageal reflux disease) Status: Chronic (6) Hydrocephalus Status: Chronic (7) MRSA (methicillin resistant Staphylococcus aureus) Status: Resolved (8) Osteomyelitis Status: Resolved (9) Spina bifida Permanent Comment: Status: Chronic Family History Cancer Diabetes mellitus Lung disease Social History Smoking Status: Never Smoker Drug Use: none Marital Status: single Housing status: lives with family Occupational Status: disabled 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 Allergies Coded Allergies: Adhesives (Verified Allergy, Intermediate, TAPE- HIVES, 10/20/16) Ceftriaxone (Verified Allergy, Intermediate, rash, 10/20/16) Chlorhexidine (Verified Allergy, Intermediate, RASH, 10/20/16) Ciprofloxacin (Verified Allergy, Intermediate, hives, 10/20/16) Latex (Verified Allergy, Intermediate, hives, 09/29/16) Levofloxacin (Verified Allergy, Intermediate, rash, 10/20/16) Linezolid (Verified Allergy, Intermediate, rash, 10/20/16) Piperacillin (Verified Allergy, Intermediate, SEVERE RASH, HIVES, 09/29/16) Tazobactam (Verified Allergy, Intermediate, SEVERE RASH, HIVES, 10/20/16) Vancomycin (Verified Allergy, Intermediate, rash, 10/20/16) Tobramycin (Verified Allergy, Mild, MILD RASH ON ARM, RED FACE, 5/18/17) IMPROVED AFTER BENADRYL, TAKING REST OF DOSE Amikacin (Verified Allergy, Unknown, PER DR ROBINS,RXN WAS TO ZOSYN NOT AMKrash;hives, 10/20/16) Sulfamethoxazole w/Trimethoprim (Verified Allergy, Unknown, Hives, 10/20/16 ) Can be pretreated with 10mg Zytrec 45 min prior to admin Home Medications Scheduled Albuterol Sulfate (Proair Respiclick), 2 PUFFS INH TID Aripiprazole (Abilify), 1 TAB PO DAILY Benztropine Mesylate (Benztropine Mesylate), 1 MG PO BID Cholecalciferol (Vitamin D), 2,000 INTER.UNIT PO DAILY Clonazepam (Klonopin), 0.5 MG PO BID Cyanocobalamin (Vitamin B-12), 500 MG PO BID Docusate Sodium (Dulcolax Stool Softener), 100 MG PO BID Ethinyl Estradiol/Norethindr (Loestrin Fe 1.5/30), 1 TAB PO DAILY Ferrous Sulfate (Kp Ferrous Sulfate), 1 TAB PO BIDM Fluticasone Prop/Salmeterol (Advair Diskus 500/50 60 Dose), 1 PUFF INH BID Gabapentin (Gabapentin), 300 MG PO TID Hydroxyzine Hcl (Atarax), 25 MG PO QD@1200 Hyoscyamine Sulfate (Levsin), 0.125 MG PO QID Levothyroxine Sodium (Levothyroxine Sodium), 25 MG PO DAILY Linaclotide (Linzess), 290 MCG PO QAM Salvisa Carbonate (Salvisa Carbonate ER), 450 MG PO QAM Salvisa Carbonate (Salvisa Carbonate), 600 MG PO QPM Multiple Vitamin (Multivitamin), 1 TAB PO DAILY Nortriptyline Hcl (Pamelor), 75 MG PO HS Nortriptyline Hcl (Pamelor), 25 MG PO HS Pantoprazole (Pantoprazole Sodium), 40 MG PO QAM Probiotic Product (Probiotic), 1 TAB PO BID Ranitidine (Zantac), 150 MG PO HS Sennosides (Senna Lax), 8.6 MG PO DAILY Topiramate (Topamax ), 75 MG PO BID Wound Dressings (Hydrofera Blue Foam Dress), 1 APPLN TOP DAILY Scheduled PRN Acetaminophen (Acetaminophen Extra Stren), 500-1,000 MG PO Q6H PRN for Pain Dihydroergotamine Mesylate (Migranal), 4 MG NA UD PRN for Migraine Indomethacin (Indocin), 25 MG PO TID PRN for Headache Ketorolac Tromethamine (Ketorolac Tromethamine), 10-20 MG PO UD PRN for Headache Meclizine Hcl (Meclizine Hcl), 1 TAB PO TID PRN for Dizziness or Vertigo Nystatin (Topical) (Nystop), 1 APPL TOP UD PRN for SKIN IMPAIRMENT Ondansetron (Ondansetron HCl), 4 MG PO DAILY PRN for Nausea Tramadol (Ultram), 50 MG PO Q4H PRN for Pain Review of Systems Constitutional: No fever, No chills, No sweats Eyes: No worsening of vision, No eye pain ENT: No hearing loss, No unusual epistaxis, No nasal symptoms Respiratory: + cough, + wheezing, + shortness of breath, + dyspnea on exertion , + dyspnea at rest Cardiovascular: No chest pain, No orthopnea, No PND Abdomen: No pain, No nausea, No vomiting Musculoskeletal: No joint pain, No muscle pain Genitourinary - Female: No dysuria Neurologic: No memory loss, No paralysis Psychiatric: No depression symptoms Endocrine: No fatigue Hematologic / Lymphatic: No abnormal bleeding/bruising Integumentary: No rash Physical Exam Vital Signs Date Time Temp Pulse Resp B/P (MAP) Pulse Ox O2 Delivery O2 Flow Rate FiO2 11/13/16 23:57 112 20 98 Room Air 11/13/16 22:40 110 20 99 Room Air 11/13/16 21:21 110 24 136/89 100 Room Air 11/13/16 19:32 37.0 120 22 127/79 97 Room Air General Appearance: WD/WN, no apparent distress Head: normocephalic, atraumatic Eyes: normal inspection, EOMI ENT: normal ENT inspection, pharynx normal Neck: supple, no JVD Respiratory/Chest: chest non-tender, normal breath sounds, no respiratory distress, + decreased breath sounds, + pertinent finding (coughing several times during exam) Cardiovascular: regular rate, rhythm, no edema, no gallop, no JVD, no murmur, normal peripheral pulses Abdomen/GI: normal bowel sounds, non tender, soft Back: normal inspection, no CVA tenderness, no muscle spasm, normal range of motion Extremities/Musculoskelatal: + pertinent finding (B/L BKA ) 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, no motor/sensory deficits, alert, normal mood/affect, oriented x 3 Skin: normal color, warm/dry, no rash Diagnostics Laboratory Results Results Past 24 Hours Test 11/13/16 20:50 11/13/16 22:17 Range/Units White Blood Count 19.13 4.8-10.8 K/uL Red Blood Count 4.46 4.2-5.4 M/uL Hemoglobin 12.9 12.0-16.0 g/dL Hematocrit 41.4 37-47 % Mean Corpuscular Volume 92.8 80-100 fL Mean Corpuscular Hemoglobin 28.9 25-34 pg Mean Corpuscular Hemoglobin Concent 31.2 32-36 g/dl Platelet Count 214 130-400 K/uL Mean Platelet Volume 10.1 7.4-10.4 fL Neutrophils (%) (Auto) 76.3 % Lymphocytes (%) (Auto) 15.7 % Monocytes (%) (Auto) 5.9 % Eosinophils (%) (Auto) 1.5 % Basophils (%) (Auto) 0.2 % Neutrophils # (Auto) 14.59 1.4-6.5 K/uL Lymphocytes # (Auto) 3.01 1.2-3.4 K/uL Monocytes # (Auto) 1.13 0.11-0.59 K/uL Eosinophils # (Auto) 0.29 0-0.5 K/uL Basophils # (Auto) 0.04 0-0.2 K/uL RDW Standard Deviation 49.9 36.4-46.3 fL RDW Coefficient of Variation 14.6 11.5-14.5 % Immature Granulocyte % (Auto) 0.4 % Immature Granulocyte # (Auto) 0.07 0.00-0.02 K/uL Sodium Level 140 136-145 mmol/L Potassium Level 3.3 3.5-5.1 mmol/L Chloride Level 110 98-107 mmol/L Carbon Dioxide Level 18 21-32 mmol/L Anion Gap 12.0 3-11 mmol/L Blood Urea Nitrogen 8 7-18 mg/dl Creatinine 0.79 0.60-1.20 mg/dl Est Creatinine Clear Calc Drug Dose 85.2 ml/min Estimated GFR () 117.2 Estimated GFR (Non- 101.2 BUN/Creatinine Ratio 10.6 10-20 Random Glucose 159 70-99 mg/dl Calcium Level 8.2 8.5-10.1 mg/dl Salvisa Level 0.8 0.6-1.2 mMOL/L Venous Blood pH 7.34 7.36-7.41 Venous Blood Partial Pressure CO2 34 38.0-50.0 mmHg Venous Blood Partial Pressure O2 39 mmHg Venous Blood HCO3 18 mmol/L Venous Blood Oxygen Saturation 73.9 % Venous Blood Base Excess -7.3 mmol/L Diagnostic Radiology CXR: Low lung volumes with hypoventilatory changes at the lung bases. Impression Assessment and Plan 31 y/o F w/Hx Spina bifida, MILLER HEAD shunt at - 12 revisions, 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 Pt presents with progressive SOB a persistent dry cough and wheezing which is not responding well to her home inhalers. She had multiple respiratory treatments in the ER to minimal effect and continues to exhibit poor air movement. Initial labs are notable for Leukocytosis. She is afebrile and her CXR is not consistent with acute PNM. 1) Status asthmaticus - Pt placed on scheduled albuterol, IV Solumedrol and Zithromax due to her Leukocytosis. 2) Leukocytosis - She has a history of suprapubic catheter placement with recurrent UTIs and recent resistant E. coli and Klebsiella infections. She recently completed a course of Diflucan for yeast in her urine. She may have a URI although there is no evidence of pneumonia and she has not received recent steroids. She is afebrile. We will check a UA and would consult ID and consider restarting Ertapenem if positive. We will trend her CBC. 3) Bipolar disease with psychosis - recent admission with hallucinations - stable - cont current, extensive psychoactive regimen. Full code - Heparin prophylaxis Total time for this admit including review of extensive records, meds, imaging - discussion with pt and ER attending - 45 min Level of Care Med/Surg Resuscitation Status FULL RESUSCITATION VTE Prophylaxis VTE Risk Assessment Done? Y/N: Yes Risk Level: Moderate Given or contraindicated: Unfractionated heparin SQ
--- NOTE | 2016-11-14 01:39 | EMERGENCY ROOM VISIT NOTE ---
History Report prepared by James: Jessica Funes Under the Supervision of: Dr. Paul Suárez D.O. 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 The patient has been coughing for the past 2 days. Her cough is productive of a yellow sputum. She also has a sore throat. She saw her PCP 2 days ago and she was negative for strep. Since then her cough has worsened. Her cough has caused her to become SOB. She has some chest pain with coughing. She denies any ear pain, rhinorrhea, nausea, vomiting, or diarrhea. She has had asthma since she was 20. Her symptoms feel consistent with her asthma. She has inhalers and nebulizers at home which have not helped her. She denies any history of blood clots and is not on any blood thinners. 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 Review of Systems See HPI for pertinent positives & negatives. A total of 10 systems reviewed and were otherwise negative. Past Medical & Surgical Medical Problems: (1) Allergic reaction caused by a drug (2) Anxiety (3) Asthma exacerbation (4) Bipolar 1 disorder (5) Depression (6) Gastroparesis (7) GERD (gastroesophageal reflux disease) (8) Hydrocephalus (9) Intractable headache (10) Migraines (11) MRSA (methicillin resistant Staphylococcus aureus) (12) Osteomyelitis (13) Shunt placement with revision x8 (14) Spina bifida (15) UTI (urinary tract infection) Surgical Problems: (1) S/P BKA (below knee amputation) bilateral Family History Cancer Diabetes mellitus Lung disease Social History Smoking Status: Never Smoker Alcohol Use: none Drug Use: none Marital Status: single Housing Status: lives with family Occupation Status: disabled Current/Historical Medications Scheduled Albuterol Sulfate (Proair Respiclick), 2 PUFFS INH TID Aripiprazole (Abilify), 1 TAB PO DAILY Benztropine Mesylate (Benztropine Mesylate), 1 MG PO BID Cholecalciferol (Vitamin D), 2,000 INTER.UNIT PO DAILY Clonazepam (Klonopin), 0.5 MG PO BID Cyanocobalamin (Vitamin B-12), 500 MG PO BID Docusate Sodium (Dulcolax Stool Softener), 100 MG PO BID Ethinyl Estradiol/Norethindr (Loestrin Fe 1.5/30), 1 TAB PO DAILY Ferrous Sulfate (Kp Ferrous Sulfate), 1 TAB PO BIDM Fluticasone Prop/Salmeterol (Advair Diskus 500/50 60 Dose), 1 PUFF INH BID Gabapentin (Gabapentin), 300 MG PO TID Hydroxyzine Hcl (Atarax), 25 MG PO QD@1200 Hyoscyamine Sulfate (Levsin), 0.125 MG PO QID Levothyroxine Sodium (Levothyroxine Sodium), 25 MG PO DAILY Linaclotide (Linzess), 290 MCG PO QAM Marlette Carbonate (Marlette Carbonate ER), 450 MG PO QAM Marlette Carbonate (Marlette Carbonate), 600 MG PO QPM Multiple Vitamin (Multivitamin), 1 TAB PO DAILY Nortriptyline Hcl (Pamelor), 75 MG PO HS Nortriptyline Hcl (Pamelor), 25 MG PO HS Pantoprazole (Pantoprazole Sodium), 40 MG PO QAM Probiotic Product (Probiotic), 1 TAB PO BID Ranitidine (Zantac), 150 MG PO HS Sennosides (Senna Lax), 8.6 MG PO DAILY Topiramate (Topamax ), 75 MG PO BID Wound Dressings (Hydrofera Blue Foam Dress), 1 APPLN TOP DAILY Scheduled PRN Acetaminophen (Acetaminophen Extra Stren), 500-1,000 MG PO Q6H PRN for Pain Dihydroergotamine Mesylate (Migranal), 4 MG NA UD PRN for Migraine Indomethacin (Indocin), 25 MG PO TID PRN for Headache Ketorolac Tromethamine (Ketorolac Tromethamine), 10-20 MG PO UD PRN for Headache Meclizine Hcl (Meclizine Hcl), 1 TAB PO TID PRN for Dizziness or Vertigo Nystatin (Topical) (Nystop), 1 APPL TOP UD PRN for SKIN IMPAIRMENT Ondansetron (Ondansetron HCl), 4 MG PO DAILY PRN for Nausea Tramadol (Ultram), 50 MG PO Q4H PRN for Pain Allergies Coded Allergies: Adhesives (Verified Allergy, Intermediate, TAPE- HIVES, 10/20/16) Ceftriaxone (Verified Allergy, Intermediate, rash, 10/20/16) Chlorhexidine (Verified Allergy, Intermediate, RASH, 10/20/16) Ciprofloxacin (Verified Allergy, Intermediate, hives, 10/20/16) Latex (Verified Allergy, Intermediate, hives, 09/29/16) Levofloxacin (Verified Allergy, Intermediate, rash, 10/20/16) Linezolid (Verified Allergy, Intermediate, rash, 10/20/16) Piperacillin (Verified Allergy, Intermediate, SEVERE RASH, HIVES, 09/29/16) Tazobactam (Verified Allergy, Intermediate, SEVERE RASH, HIVES, 10/20/16) Vancomycin (Verified Allergy, Intermediate, rash, 10/20/16) Tobramycin (Verified Allergy, Mild, MILD RASH ON ARM, RED FACE, 10/20/16) IMPROVED AFTER BENADRYL, TAKING REST OF DOSE Amikacin (Verified Allergy, Unknown, PER DR ROBINS,RXN WAS TO ZOSYN NOT AMKrash;hives, 10/20/16) Sulfamethoxazole w/Trimethoprim (Verified Allergy, Unknown, Hives, 10/20/16 ) Can be pretreated with 10mg Zytrec 45 min prior to admin Physical Exam Vital Signs Date Time Temp Pulse Resp B/P (MAP) Pulse Ox O2 Delivery O2 Flow Rate FiO2 11/13/16 23:57 112 20 98 Room Air 11/13/16 22:40 110 20 99 Room Air 11/13/16 21:21 110 24 136/89 100 Room Air 11/13/16 19:32 37.0 120 22 127/79 97 Room Air Physical Exam GENERAL: sitting up in bed, disheveled, chronically ill appearing, dyspneic on conversation EYE EXAM: normal conjunctiva OROPHARYNX: no exudate, no erythema, lips, buccal mucosa, and tongue normal and mucous membranes are moist NECK: supple, no nuchal rigidity, no adenopathy, non-tender, no JVD LUNGS: Diffuse wheezes bilaterally. Normal chest wall mechanics HEART: tachycardic, no murmurs, S1 normal and S2 normal ABDOMEN: abdomen soft, non-tender, normo-active bowel sounds, no masses, no rebound or guarding. BACK: Back is symmetrical on inspection and there is no deformity, no midline tenderness, no CVA tenderness. SKIN: no rashes and no bruising UPPER EXTREMITIES: upper extremities are grossly normal. LOWER EXTREMITIES: faint pitting edema bilaterally, chronic Meade in place, b/l bka NEURO EXAM: Normal sensorium, cranial nerves II-XII grossly intact, normal speech, no gross weakness of arms. Medical Decision & Procedures ER Provider Diagnostic Interpretation: Xray results as stated below per my and the radiologist's interpretation: CHEST 2 VIEWS ROUTINE CLINICAL HISTORY: cough and sob COMPARISON STUDY: 10/22/2016 FINDINGS: There are very low lung volumes. The heart is mildly enlarged. There is a right internal jugular central venous catheter. A ventriculoperitoneal shunt catheter is visualized. There is no focal pulmonary consolidation.[ There is basilar atelectasis. IMPRESSION: Low lung volumes with hypoventilatory changes at the lung bases. Electronically signed by: Yair Morrison M.D. 11/13/2016 9:45 PM Dictated Date/Time: 11/13/2016 9:43 PM Laboratory Results 11/13/16 20:50 Red Blood Count 4.46, Mean Corpuscular Volume 92.8, Mean Corpuscular Hemoglobin 28.9, Mean Corpuscular Hemoglobin Concent 31.2, Mean Platelet Volume 10.1, Neutrophils (%) (Auto) 76.3, Lymphocytes (%) (Auto) 15.7, Monocytes (%) (Auto) 5.9, Eosinophils (%) (Auto) 1.5, Basophils (%) (Auto) 0.2, Neutrophils # (Auto) 14.59, Lymphocytes # (Auto) 3.01, Monocytes # (Auto) 1.13, Eosinophils # (Auto) 0.29, Basophils # (Auto) 0.04 11/13/16 20:50 Test 11/13/16 20:50 11/13/16 22:17 White Blood Count 19.13 K/uL (4.8-10.8) Red Blood Count 4.46 M/uL (4.2-5.4) Hemoglobin 12.9 g/dL (12.0-16.0) Hematocrit 41.4 % (37-47) Mean Corpuscular Volume 92.8 fL (80-100) Mean Corpuscular Hemoglobin 28.9 pg (25-34) Mean Corpuscular Hemoglobin Concent 31.2 g/dl (32-36) Platelet Count 214 K/uL (130-400) Mean Platelet Volume 10.1 fL (7.4-10.4) Neutrophils (%) (Auto) 76.3 % Lymphocytes (%) (Auto) 15.7 % Monocytes (%) (Auto) 5.9 % Eosinophils (%) (Auto) 1.5 % Basophils (%) (Auto) 0.2 % Neutrophils # (Auto) 14.59 K/uL (1.4-6.5) Lymphocytes # (Auto) 3.01 K/uL (1.2-3.4) Monocytes # (Auto) 1.13 K/uL (0.11-0.59) Eosinophils # (Auto) 0.29 K/uL (0-0.5) Basophils # (Auto) 0.04 K/uL (0-0.2) RDW Standard Deviation 49.9 fL (36.4-46.3) RDW Coefficient of Variation 14.6 % (11.5-14.5) Immature Granulocyte % (Auto) 0.4 % Immature Granulocyte # (Auto) 0.07 K/uL (0.00-0.02) Anion Gap 12.0 mmol/L (3-11) Est Creatinine Clear Calc Drug Dose 85.2 ml/min Estimated GFR () 117.2 Estimated GFR (Non- 101.2 BUN/Creatinine Ratio 10.6 (10-20) Calcium Level 8.2 mg/dl (8.5-10.1) Marlette Level 0.8 mMOL/L (0.6-1.2) Venous Blood pH 7.34 (7.36-7.41) Venous Blood Partial Pressure CO2 34 mmHg (38.0-50.0) Venous Blood Partial Pressure O2 39 mmHg Venous Blood HCO3 18 mmol/L Venous Blood Oxygen Saturation 73.9 % Venous Blood Base Excess -7.3 mmol/L Laboratory results per my review. Medications Administered Medications (Trade) Dose Ordered Sig/Brenna Route Start Time Stop Time Status Last Admin Dose Admin Albuterol Sulfate (Ventolin 0.083% 2.5MG/3ML Neb) 5 mg NOW STAT INH 11/13/16 19:56 11/13/16 19:58 DC 6/11/17 20:08 5 MG Methylprednisolone Sodium Succinate (Solu-Medrol IV) 125 mg NOW STAT IV 11/13/16 19:56 11/13/16 19:58 DC 11/13/16 20:49 125 MG Azithromycin (Zithromax Tab) 500 mg NOW STAT PO 11/13/16 21:58 11/13/16 22:01 DC 11/13/16 22:38 500 MG Albuterol/ Ipratropium (Duoneb) 3 ml NOW STAT INH 11/13/16 21:58 11/13/16 22:01 DC 11/13/16 22:38 3 ML Albuterol/ Ipratropium (Duoneb) 3 ml NOW STAT INH 11/13/16 21:58 11/13/16 22:01 DC 11/13/16 21:58 3 ML Benzonatate (Tessalon Perles Cap) 100 mg NOW ONCE PO 11/13/16 23:15 11/13/16 23:16 DC 11/13/16 23:35 100 MG ECG Indication: SOB/dyspnea Rate (beats per minute): 114 Rhythm: sinus tachycardia Findings: other (normal axis, low voltage, poor baseline) ED Course ED COURSE: Vital signs were reviewed and showed tachycardia, tachypnea. The patients medical record was reviewed The above diagnostic studies were performed and reviewed. ED treatments and interventions as stated above. 1952: The patient was evaluated in room B3B. A complete history and physical examination was performed. 1955: Solu-Medrol IV 125 mg IV, Albuterol Sulfate 5 mg INH. 2154: I reevaluated the patient. She is still SOB. 2157: Duoneb 3 ml INH, Duoneb 3 ml INH, Azithromycin 500 mg PO. 2307: Upon reevaluation, the patient is still SOB.I discussed my findings with the patient and her mother and they understand and agree with the treatment plan. Based on the patients age, coexisting illnesses, exam and lab findings the decision to treat as an inpatient was made. The patient remained stable while under my care. The patient will be evaluated for further management. 2309: I reviewed the patient's case with Dr. Brewer, [facility] [place]. He will evaluate the patient for further management. 5: Benzonatate 100 mg PO. Medical Decision Differential diagnoses includes but is not limited to pneumonia, bronchitis, COPD/Asthma exacerbation, pneumothorax, pulmonary embolism, congestive heart failure, acute coronary syndrome Medication Reconciliation: I attest that I have personally reviewed the patient' s current medication list. Blood pressure screening: Patient was found to have normal blood pressure on screening and does not require follow-up. Patient is a 31-year-old female who presents the ER with a cough and shortness of breath. She does have a history of asthma since she was 21. She notes that she has become more and more short of breath that improvement of her inhalers. Labs were obtained and show a leukocytosis of 19,000, CO2 of 18 and a pH of 7.34. Patient was given one albuterol and 2 DuoNeb's with minimal improvement. She did have wheezing bilaterally. She was given steroids and azithromycin. She was admitted to internal medicine with an asthma exacerbation. Consults Time Called: [phone] Consulting Physician: Dr. Brewer [facility] [place] service Returned Call: [phone] I reviewed the patient's case with him. He will evaluate the patient for further management. Impression Primary Impression: Asthma exacerbation Scribe Attestation The scribe's documentation has been prepared under my direction and personally reviewed by me in its entirety. I confirm that the note above accurately reflects all work, treatment, procedures, and medical decision making performed by me. Departure Information Dispostion Being Evaluated By Hospitalist Referrals Darvin Lea D.O.Int.Med. (PCP) Patient Instructions Asthma - [facility], COPD - [facility], Croup - [facility], My [facility]
[2016-11-14] MEDS ORDERED: NSS + 20MEQ KCL 1000ML 1,000 ML IV SCH (02:15)
[2016-11-14] MEDS: LINZESS~ORDER AWAITING ACTION SCH ×3 (02:30→16:00)
[2016-11-14] MEDS: METHYLPREDNISOLONE IV 60 MG in SYRINGE 0 ML IV SCH ×4 (02:33→20:47)
[2016-11-14 02:54] LABS: INR 1.1 (0.9-1.1); PROTHROMBIN TIME (PATIENT) 12.2 SECONDS (9.0-12.0)
[2016-11-14 03:02] LABS: URINE APPEARANCE CLEAR (CLEAR); URINE BILIRUBIN NEG (NEG); URINE COLOR YELLOW; URINE EPITHELIAL CELL AUTO >30 /lpf (0-5); URINE NITRITE NEG (NEG); URINE PH 7.5 (4.5-7.5); URINE SPECIFIC GRAVITY 1.006 (1.000-1.030); UROBILINOGEN NEG (NEG)
[2016-11-14 03:15] LABS: MANUAL MICROSCOPIC REQUIRED? NO; REVIEW REQ? NO
[2016-11-14] MEDS: ALBUTEROL 0.083% NEBU SOLN 3 ML VIAL INH SCH ×6 (04:08→23:31)
[2016-11-14] MEDS: HEPARIN SOD 5000 UNIT/0.5 ML CARP SQ SCH ×3 (05:56→21:40)
[2016-11-14] MEDS: LEVOTHYROXINE 25 MCG TAB PO SCH (05:56)
[2016-11-14 06:12] LABS: HEMATOCRIT 38.4 % (37-47); MEAN CELL VOLUME 92.8 fL (80-100); MEAN CORPUSCULAR HEMOGLOBIN 29.5 pg (25-34); MEAN CORPUSCULAR HGB CONC 31.8 g/dl (32-36); MEAN PLATELET VOLUME 10.1 fL (7.4-10.4); PLATELET COUNT 181 K/uL (130-400); RED BLOOD COUNT 4.14 M/uL (4.2-5.4); WHITE BLOOD COUNT 16.99 K/uL (4.8-10.8)
[2016-11-14 06:48] LABS: CALCIUM 8.2 mg/dl (8.5-10.1); CREATININE 0.64 mg/dl (0.60-1.20); MAGNESIUM 2.4 mg/dl (1.8-2.4)
[2016-11-14] MEDS: FLUTICASONE/SALMETEROL (ADVAIR) 500/50 INH 14 PUFF INH SCH ×2 (07:38→20:41)
--- NOTE | 2016-11-14 08:32 | Hospitalist Progress Note ---
Hospitalist Progress Note Date of Service Nov 14, 2016. (Cris Vasquez PA-C) Subjective Pt evaluation today including: conversation w/ patient, physical exam, chart review, lab review, review of studies Pain: None PO Intake: Good Voiding: arango catheter in place The patient was seen and examined this morning. Pt reports feeling a little better this morning, she still has a heaviness/pressure sensation over her chest. She has coughing fits and is occasionally bringing up white/clear mucous. She had tried not wearing supplemental O2 this morning, but felt like she was working to breath so put it back on. At baseline, she doesn't require O2. She denies any fever, chills or sweats. Constitutional: No fever, No chills, No sweats Eyes: No discharge, No diplopia ENT: No nasal symptoms, No sore throat Respiratory: + cough, + sputum, No wheezing, No shortness of breath Cardiovascular: No chest pain, No palpitations Abdomen: No pain, No nausea, No vomiting, No diarrhea, No constipation Musculoskeletal: No joint pain, No muscle pain, No swelling Skin: No rash, No itch (Cris Vasquez PA-C) Objective Vital Signs Date Time Temp Pulse Resp B/P (MAP) Pulse Ox O2 Delivery O2 Flow Rate FiO2 11/14/16 07:03 85 18 98 Nasal Cannula 2.0 11/14/16 06:45 36.6 85 21 108/70 (83) 98 Nasal Cannula 2.0 11/14/16 04:08 83 18 96 Nasal Cannula 2.0 11/14/16 01:40 Nasal Cannula 2.0 11/14/16 01:40 36.8 105 18 119/73 96 Nasal Cannula 2.0 11/14/16 01:19 111 20 114/75 96 Room Air 11/13/16 23:57 112 20 98 Room Air 11/13/16 22:40 110 20 99 Room Air 11/13/16 21:21 110 24 136/89 100 Room Air 11/13/16 19:32 37.0 120 22 127/79 97 Room Air (Cris Vasquez PA-C) Physical Exam General Appearance: WD/WN, + mild distress, + obese Eyes: PERRL, EOMI ENT: hearing grossly normal, pharynx normal Neck: supple, no JVD Respiratory/Chest: chest non-tender, no respiratory distress, no accessory muscle use, + pertinent finding (On 2 L via NC, Breath sounds are decreased on the L compared to the right, + cough, no wheezing, rales or rhonchi) Cardiovascular: regular rate, rhythm, no murmur Abdomen: normal bowel sounds, non tender, soft, + pertinent finding (Arango cath in place draining clear yellow urine. ) Extremities: non-tender, + pertinent finding (Bilateral BKA, stumps intact with waffle boots underneath. ) Neurologic/Psychiatric: alert, normal mood/affect, oriented x 3 Skin: normal color, warm/dry (Cris Vasquez, WILLIAMS) Laboratory Results Last 24 Hours Test 11/13/16 20:50 11/13/16 20:52 11/13/16 22:17 11/14/16 02:40 White Blood Count 19.13 K/uL Red Blood Count 4.46 M/uL Hemoglobin 12.9 g/dL Hematocrit 41.4 % Mean Corpuscular Volume 92.8 fL Mean Corpuscular Hemoglobin 28.9 pg Mean Corpuscular Hemoglobin Concent 31.2 g/dl Platelet Count 214 K/uL Mean Platelet Volume 10.1 fL Neutrophils (%) (Auto) 76.3 % Lymphocytes (%) (Auto) 15.7 % Monocytes (%) (Auto) 5.9 % Eosinophils (%) (Auto) 1.5 % Basophils (%) (Auto) 0.2 % Neutrophils # (Auto) 14.59 K/uL Lymphocytes # (Auto) 3.01 K/uL Monocytes # (Auto) 1.13 K/uL Eosinophils # (Auto) 0.29 K/uL Basophils # (Auto) 0.04 K/uL RDW Standard Deviation 49.9 fL RDW Coefficient of Variation 14.6 % Immature Granulocyte % (Auto) 0.4 % Immature Granulocyte # (Auto) 0.07 K/uL Sodium Level 140 mmol/L Potassium Level 3.3 mmol/L Chloride Level 110 mmol/L Carbon Dioxide Level 18 mmol/L Anion Gap 12.0 mmol/L Blood Urea Nitrogen 8 mg/dl Creatinine 0.79 mg/dl Est Creatinine Clear Calc Drug Dose 85.2 ml/min Estimated GFR () 117.2 Estimated GFR (Non- 101.2 BUN/Creatinine Ratio 10.6 Random Glucose 159 mg/dl Calcium Level 8.2 mg/dl [place] Level 0.8 mMOL/L Prothrombin Time 12.2 SECONDS Prothromb Time International Ratio 1.1 Venous Blood pH 7.34 Venous Blood Partial Pressure CO2 34 mmHg Venous Blood Partial Pressure O2 39 mmHg Venous Blood HCO3 18 mmol/L Venous Blood Oxygen Saturation 73.9 % Venous Blood Base Excess -7.3 mmol/L Urine Color YELLOW Urine Appearance CLEAR Urine pH 7.5 Urine Specific Miles 1.006 Urine Protein NEG Urine Glucose (UA) TRACE Urine Ketones NEG Urine Occult Blood TRACE Urine Nitrite NEG Urine Bilirubin NEG Urine Urobilinogen NEG Urine Leukocyte Esterase SMALL Urine WBC (Auto) 1-5 /hpf Urine RBC (Auto) 0-4 /hpf Urine Hyaline Casts (Auto) 1-5 /lpf Urine Epithelial Cells (Auto) >30 /lpf Urine Bacteria (Auto) 3+ Test 11/14/16 05:53 White Blood Count 16.99 K/uL Red Blood Count 4.14 M/uL Hemoglobin 12.2 g/dL Hematocrit 38.4 % Mean Corpuscular Volume 92.8 fL Mean Corpuscular Hemoglobin 29.5 pg Mean Corpuscular Hemoglobin Concent 31.8 g/dl RDW Standard Deviation 49.5 fL RDW Coefficient of Variation 14.5 % Platelet Count 181 K/uL Mean Platelet Volume 10.1 fL Sodium Level 143 mmol/L Potassium Level 4.0 mmol/L Chloride Level 114 mmol/L Carbon Dioxide Level 18 mmol/L Anion Gap 11.0 mmol/L Blood Urea Nitrogen 8 mg/dl Creatinine 0.64 mg/dl Est Creatinine Clear Calc Drug Dose 105.2 ml/min Estimated GFR () 139.8 Estimated GFR (Non- 120.6 BUN/Creatinine Ratio 12.0 Random Glucose 198 mg/dl Calcium Level 8.2 mg/dl Magnesium Level 2.4 mg/dl (Cris Vasquez PA-C) Assessment and Plan 31 y/o F w PMHx Spina bifida, 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 Pt presents with progressive SOB a persistent dry cough and wheezing which is not responding well to her home inhalers. She had multiple respiratory treatments in the ER to minimal effect and continues to exhibit poor air movement. Status asthmaticus - Pt placed on scheduled albuterol, IV Solumedrol 60 mg Q12H and Zithromax due to her Leukocytosis of 19K -->17K, will follow with am labs - afebrile and her CXR is not consistent with acute PNM. - Still requiring supplemental O2 @ 2L, wean as able Leukocytosis - - She has a history of suprapubic catheter placement with recurrent UTIs and recent resistant E. coli and Klebsiella infections. Pt recently completed a course of Diflucan for yeast in her urine. She may have a URI although there is no evidence of pneumonia. She is afebrile. - UA completed with 3+ bacteria and trace esterase, will send for culture. - Consider ID and restarting Ertapenem if she does not respond with zithromax for URI. - Follow am CBC. Bipolar disease with psychosis - recent admission with hallucinations - stable - cont current, extensive psychoactive regimen with lithium 450 mg QAM and 600 mg QPM, aripiprazole 30 mg daily, topirimate 75 mg BID DVT ppx: heparin q8h sq CODE STATUS: FULL CODE Disposition: From home, discharge when medically stable, in 1-2 days (Cris Vasquez, WILLIAMS) PA Physician Supervision Note: I interviewed and examined the patient. Discussed with Maria A Vasquez PAC and agree with findings and plan as documented in the note. Any exceptions or clarifications are listed here: None Pt here with asthma exacerbation, still with some shortness of breath. vitals stable not hypoxic lungs exp wheezing R>L asthma exacerbation, steroids, nebs and anxiolytic meds Documented By: George Powell (George Powell M.D.)
[2016-11-14] MEDS: SENNA 8.6 MG TAB PO SCH (09:00)
[2016-11-14] MEDS ORDERED: CYANOCOBALAMIN 500 MCG TAB (VIT B-12) PO SCH (09:00)
[2016-11-14] MEDS ORDERED: ARIPIprazole TAB 15 MG TAB PO SCH (09:00)
[2016-11-14] MEDS ORDERED: NON-FORMULARY MEDICATION (Probiotic Product (Probiotic) 1 TAB) PO SCH (09:00)
[2016-11-14] MEDS ORDERED: BENZTROPINE MESYLATE 1 MG TAB PO SCH (09:00)
[2016-11-14] MEDS ORDERED: WOUND DRESSINGS TOP SCH (09:00)
[2016-11-14] MEDS: FERROUS SULFATE 325 MG TAB PO SCH ×2 (09:10→18:44)
[2016-11-14] MEDS: CLONAZEPAM 0.5 MG TAB PO SCH ×2 (09:10→20:46)
[2016-11-14] MEDS: DOCUSATE SODIUM 100 MG CAP PO SCH ×2 (09:11→20:43)
[2016-11-14] MEDS: GABAPENTIN 300 MG CAP PO SCH ×3 (09:13→20:48)
[2016-11-14] MEDS: HYOSCYAMINE SULFATE 0.125 MG SL TAB PO SCH ×4 (09:13→20:43)
[2016-11-14] MEDS: TOPIRAMATE 25 MG TAB PO SCH ×2 (09:13→20:47)
[2016-11-14] MEDS: LITHIUM CARBONATE 450 MG TABCR PO SCH (09:14)
[2016-11-14] MEDS: PANTOprazole SOD 40 MG TAB PO SCH (09:14)
[2016-11-14] MEDS: CHOLECALCIFEROL 1000 INTER.UNIT TAB PO SCH (09:14)
[2016-11-14] MEDS: ARIPIprazole TAB 5 MG TAB PO SCH (10:59)
[2016-11-14] MEDS: BENZTROPINE MESYLATE 1 MG TAB PO SCH (11:03)
[2016-11-14] MEDS: hydrOXYzine HCL 25 MG TAB PO SCH (13:13)
[2016-11-14] MEDS ORDERED: ALBUTEROL 0.083% NEBU SOLN 3 ML VIAL INH PRN (14:00)
[2016-11-14] MEDS: MICONAZOLE NITRATE POWDER 43 GM EXT PRN (17:04)
[2016-11-14] MEDS: CYANOCOBALAMIN 500 MCG TAB (VIT B-12) PO SCH (20:45)
[2016-11-14] MEDS: LITHIUM CARBONATE 300 MG TAB PO SCH (20:46)
[2016-11-14] MEDS: RANITIDINE HCL 150 MG TAB PO SCH (20:49)
[2016-11-14] MEDS: NORTRIPTYLINE HCL 25 MG CAP PO SCH (20:49)
[2016-11-14] MEDS ORDERED: NORTRIPTYLINE HCL 25 MG CAP PO SCH (21:00)
[2016-11-14] MEDS: AZITHROMYCIN IV 500 MG in DEXTROSE 5% 250ML 250 ML IV SCH (21:44)
[2016-11-15] VITALS (8 sets, daily range): BP systolic 100–116; BP diastolic 64–75; PULSE 72–107; TEMP 36.7; O2SAT 92–99
[2016-11-15] MEDS: METHYLPREDNISOLONE IV 60 MG in SYRINGE 0 ML IV SCH ×4 (02:06→21:10)
[2016-11-15] MEDS: ALBUTEROL 0.083% NEBU SOLN 3 ML VIAL INH SCH ×4 (03:34→14:22)
[2016-11-15] MEDS: HEPARIN SOD 5000 UNIT/0.5 ML CARP SQ SCH ×2 (05:43→13:17)
[2016-11-15] MEDS: LEVOTHYROXINE 25 MCG TAB PO SCH (05:50)
[2016-11-15] MEDS: LITHIUM CARBONATE 450 MG TABCR PO SCH (08:03)
[2016-11-15] MEDS: BENZTROPINE MESYLATE 1 MG TAB PO SCH ×2 (08:03→21:13)
[2016-11-15] MEDS: HYOSCYAMINE SULFATE 0.125 MG SL TAB PO SCH ×4 (08:03→21:10)
[2016-11-15] MEDS: CLONAZEPAM 0.5 MG TAB PO SCH ×2 (08:03→21:24)
[2016-11-15] MEDS: FLUTICASONE/SALMETEROL (ADVAIR) 500/50 INH 14 PUFF INH SCH ×2 (08:05→21:09)
[2016-11-15] MEDS: FERROUS SULFATE 325 MG TAB PO SCH ×2 (08:54→17:54)
[2016-11-15] MEDS: GABAPENTIN 300 MG CAP PO SCH ×3 (08:54→21:11)
[2016-11-15] MEDS: PANTOprazole SOD 40 MG TAB PO SCH (08:55)
[2016-11-15] MEDS: TOPIRAMATE 25 MG TAB PO SCH ×2 (08:55→21:14)
[2016-11-15] MEDS: CHOLECALCIFEROL 1000 INTER.UNIT TAB PO SCH (08:55)
[2016-11-15] MEDS: CYANOCOBALAMIN 500 MCG TAB (VIT B-12) PO SCH ×2 (08:55→21:11)
[2016-11-15] MEDS: SENNA 8.6 MG TAB PO SCH (08:56)
[2016-11-15] MEDS: LINZESS~ORDER AWAITING ACTION SCH ×4 (08:56→23:43)
[2016-11-15] MEDS: DOCUSATE SODIUM 100 MG CAP PO SCH ×2 (08:56→21:00)
[2016-11-15] MEDS: ARIPIprazole TAB 5 MG TAB PO SCH (08:56)
--- NOTE | 2016-11-15 10:00 | Hospitalist Progress Note ---
Hospitalist Progress Note Date of Service Nov 15, 2016. (Cris Vasquez PA-C) Subjective Pt evaluation today including: conversation w/ patient, physical exam, chart review, lab review, review of studies Pain: None PO Intake: Good Voiding: arango catheter in place The patient was seen and examined this morning. Pt reports she had a panic attack this morning due to respiratory therapist telling her she didn't need O2 and took it off. She was sleeping with it overnight at 2L and her sats were adequate. She reports increased cough, with white and clear mucous. She felt febrile overnight with some chills, but did not have a temperature when her vitals were checked. She also reports having a headache yesterday. Additional Comments: ROS: 6 point ROS reviewed and otherwise negative. (Cris Vasquez PA-C) Objective Vital Signs Date Time Temp Pulse Resp B/P (MAP) Pulse Ox O2 Delivery O2 Flow Rate FiO2 11/15/16 07:50 36.7 96 26 113/73 (86) 96 Nasal Cannula 2.0 11/15/16 07:21 72 16 95 Room Air 11/15/16 03:34 93 16 98 Nasal Cannula 3.0 11/14/16 23:50 Nasal Cannula 3.0 11/14/16 23:32 111 16 98 Room Air 11/14/16 22:54 36.5 97 20 117/79 (92) 98 Nasal Cannula 3.0 11/14/16 19:04 99 16 97 Nasal Cannula 2.0 11/14/16 16:26 Nasal Cannula 3.0 11/14/16 15:59 36.5 105 20 100/63 (75) 100 Nasal Cannula 3.0 11/14/16 14:11 103 16 96 Nasal Cannula 3.0 11/14/16 13:59 107 20 116/71 (86) 99 Nasal Cannula 3.0 11/14/16 11:08 98 16 98 Nasal Cannula 2.0 (Cris Vasquez PA-C) Physical Exam Notes: General Appearance: WD/WN, + mild distress, + obese Eyes: PERRL, EOMI ENT: hearing grossly normal, pharynx normal Neck: supple, no JVD Respiratory/Chest: chest non-tender, no respiratory distress, no accessory muscle use, + pertinent finding (On 2 L via NC, Breath sounds are decreased on the L compared to the right but improved today compared to yesterday, + cough, no wheezing, rales or rhonchi) Cardiovascular: regular rate, rhythm, no murmur Abdomen: normal bowel sounds, non tender, soft, + pertinent finding (Arango cath in place draining clear yellow urine. ) Extremities: non-tender, + pertinent finding (Bilateral BKA, stumps intact with waffle boots underneath. 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 Pt presents with progressive SOB a persistent dry cough and wheezing which is not responding well to her home inhalers. She had multiple respiratory treatments in the ER to minimal effect and continues to exhibit poor air movement. Status asthmaticus - Pt placed on scheduled albuterol, IV Solumedrol 60 mg Q12H and Zithromax due to her Leukocytosis of 19K -->17K, will follow with am labs - afebrile and her CXR is not consistent with acute PNM. - Still requiring supplemental O2 @ 2L, wean as able, pt with improved breath sounds today - Encourage incentive spirometry, will order on Mucinex and tesalon pearls Leukocytosis - She has a history of suprapubic catheter placement with recurrent UTIs and recent resistant E. coli and Klebsiella infections. Pt recently completed a course of Diflucan for yeast in her urine. She may have a URI although there is no evidence of pneumonia. She is afebrile. - UA completed with 3+ bacteria and trace esterase, will send for culture. - Consider ID and restarting Ertapenem if she does not respond with zithromax for URI. - Follow am CBC Bipolar disease with psychosis - recent admission with hallucinations - stable - cont current, extensive psychoactive regimen with lithium 450 mg QAM and 600 mg QPM, aripiprazole 30 mg daily, topirimate 75 mg BID DVT ppx: heparin q8h sq CODE STATUS: FULL CODE Disposition: From home, discharge when medically stable, in 1-2 days (Cris Vasquez, WILLIAMS) PA Physician Supervision Note: I interviewed and examined the patient. Discussed with Maria A Vasquez PAC and agree with findings and plan as documented in the note. Any exceptions or clarifications are listed here: None Pt here with asthma exacerbation, still with some shortness of breath, more right sided decrease breath sounds vitals stable not hypoxic lungs exp wheezing persists R>L asthma exacerbation, pulmonary consult requests CTA, continue steroids, nebs and anxiolytic meds Documented By: George Powell (George Powell M.D.)
[2016-11-15] MEDS ORDERED: FORMOTEROL FUMA NEBULIZER SOLN 20 MCG/2 ML VIAL INH SCH ×2 (12:00→20:00)
[2016-11-15] MEDS: GUAIFENESIN 200 MG TAB PO SCH ×4 (13:16→23:42)
[2016-11-15] MEDS: BENZONATATE 100MG CAP PO SCH ×2 (13:16→21:14)
[2016-11-15] MEDS: hydrOXYzine HCL 25 MG TAB PO SCH (13:16)
[2016-11-15] MEDS: MICONAZOLE NITRATE POWDER 43 GM EXT PRN (13:49)
[2016-11-15] MEDS ORDERED: LEVALBUTEROL 0.63MG/3 ML NEB INH PRN (17:00)
--- NOTE | 2016-11-15 18:28 | PULMONARY CONSULTATION ---
DATE OF CONSULTATION: 11/15/2016 TIME: 04:30 p.m. HISTORY OF PRESENT ILLNESS: The patient was seen in room 388, bed 2. She is a 31-year-old female who states she has a history of asthma since age 20. She states usually she would only have asthma symptoms during the winter months. This past winter, however, she did not have any problems. She started with shortness of breath about 2 days prior to this admission, which would mean it started on November 11. Since then, she has been wheezing and tight in the chest. She does not describe any chest pain. She has a cough. It has been productive of yellow sputum. There has been no hemoptysis. She has a husky voice, which she states began with this exacerbation. She has had no chest pains, chills, fevers, or sweats. She admits that her dad has been sick for about 2 months with a respiratory tract infection, but she is not that much exposed to him. The patient states she has never had allergy testing. She does not think her asthma is worse with external allergies. The patient has never smoked and she does not drink alcohol. She has no history of blood clots and she is not on any blood thinners. PAST SURGICAL HISTORY: 1. PHARMACIST INTERN shunt with 8 or more revisions of the shunt. 2. Status post bilateral below knee amputations, which she states were done because of a MRSA infection and osteomyelitis. PAST MEDICAL HISTORY: 1. Asthma. 2. Anxiety. 3. Bipolar disease. 4. Gastroparesis. 5. Gastroesophageal reflux. 6. Hydrocephalus. 7. Chronic migraines. 8. Spina bifida. 9. Urinary tract infections with the most recent being a hospital stay in October of this year. 10. Osteomyelitis. FAMILY HISTORY: Mother living, high cholesterol and thyroid problems. Father living, age 62, prediabetic and high cholesterol. Maternal grandfather has lung cancer. Paternal grandfather has diabetes. ALLERGIES: THERE ARE LISTED ALLERGIES TO NUMEROUS MEDICINES INCLUDING CEFTRIAXONE, CHLORHEXIDINE, CIPROFLOXACIN, LATEX, LEVOFLOXACIN, LINEZOLID, PIPERACILLIN, TAZOBACTAM, VANCOMYCIN, TOBRAMYCIN, AMIKACIN, AND SULFA. MEDICATIONS: At home, 1. ProAir 2 puffs usually taken b.i.d. 2. Advair 500/50 one puff b.i.d. 3. Nebulizer treatments, which she usually takes about 2 times per day and she thinks it has levalbuterol. 4. Abilify 1 tab daily. 5. Benztropine 1 mg b.i.d. 6. Vitamin D 2000 units daily. 7. Clonazepam 0.5 b.i.d. 8. Vitamin B12 at 500 mg b.i.d. 9. Docusate 100 mg b.i.d. 10. Loestrin Fe 1.5/30 one tab daily. 11. Ferrous sulfate b.i.d. 12. Gabapentin 300 mg t.i.d. 13. Hydroxyzine 25 mg daily. 14. Hyoscyamine 0.125 mg q.i.d. 15. Levothyroxine 25 mcg daily. 16. Linzess 290 mcg daily. 17. [place] 450 mg in the morning and 600 mg in the evening. 18. Nortriptyline 75 mg and 25 mg at bedtime. 19. Pantoprazole 40 mg daily. 20. Probiotic b.i.d. 21. Zantac 150 mg at bedtime. 22. Senna daily. 23. Topamax 75 mg b.i.d. 24. Dihydroergotamine mesylate 4 mg p.r.n. 25. Indomethacin p.r.n. 26. Ketorolac 10-20 mg p.r.n. headache. 27. Nystatin p.r.n. skin irritation. 28. Ondansetron 4 mg daily p.r.n. nausea. 29. Tramadol 50 mg q. 4 hours p.r.n. pain. REVIEW OF SYSTEMS: Negative, except as noted in the history of present illness. Ten systems reviewed. PHYSICAL EXAMINATION: GENERAL: The patient is a pleasant 31-year-old female who was cooperative, alert and oriented. She did not appear in distress. Weight was 105 kilograms. HEENT: Pupils were reactive to light and equal in size. Nares were clear. Mouth exam showed a Mallampati grade 2 pharynx. NECK: She has a very large neck. No lymphadenopathy was palpable. CHEST: Shows somewhat diminished excursions. VITAL SIGNS: Heart rate was 110 per minute. The rhythm was regular. Blood pressure was 100/64. Saturation was 99% on 2 liters. LUNGS: Lung [place] were clear bilaterally. She seemed to have no wheezing, but she did have a respiratory rate of 24 breaths per minute. There was no use of accessory muscles. ABDOMEN: Obese. She has a large scar from prior surgery. A suprapubic catheter is in place. She has some skin changes within the skin folds. EXTREMITIES: Revealed bilateral below knee amputations. There was no cyanosis or clubbing. LABORATORY DATA: Today's white count 16.99. Admission white count was 19.13. Hemoglobin today is 12.2. Platelets are 181,000. INR is 1.1. Urinalysis showed 3+ urine bacteria. There was only 1-5 WBC. Venous blood gas done 2 days ago showed a pH of 7.34 with a pCO2 of 34 and a pO2 of 39. Electrolytes done yesterday show sodium 143, potassium 4.0, chloride 114, and bicarbonate 18. This could suggest some degree of metabolic acidosis. The BUN was 8 with a creatinine of 0.64. Random sugar was 198. Chest x-ray showed significant hypoventilatory changes at the lung bases and this reflects worsening compared with the prior study done on 10/22/2016. There is a right internal jugular central venous catheter. Ventriculoperitoneal shunt catheter is visualized. The hypoventilatory changes likely reflect atelectasis. EKG done on the showed a sinus tachycardia with a rate of 114. There were nonspecific ST and T-wave changes. Fish Protector reported cannot exclude anterior infarct. There was reported no significant change compared with the prior study done on 10/30/2016. IMPRESSIONS: 1. Asthma with exacerbation. 2. Bibasilar atelectasis and hypoventilatory changes. 3. Obesity. 4. Leukocytosis. 5. Spina bifida. COMMENTS AND RECOMMENDATIONS: The patient sounded better on examination than what I expected. I did not hear any wheezing, although she just had a breathing treatment prior to my exam. Her heart rate was elevated, but it had been an elevated at the time of admission as well. She has an abnormal EKG. I would have some concerns about the possibility of thromboembolic disease. Her medication list does suggest that she is on hormone therapy. I believe she should have a D-dimer done. If this is significantly abnormal, she should then have a CT angio of the chest. From a breathing perspective, her medications include formoterol q. 12 hours by nebulizer, Tessalon Perles, guaifenesin, azithromycin, neb treatments p.r.n. with albuterol, Advair 500/50 one puff b.i.d., pantoprazole 40 mg for reflux, subQ heparin every 8 hours, neb treatments with albuterol every 4 hours, methylprednisolone 60 mg q. 6 hours, as well as her other usual medicines. Her heart rate is elevated. This could be because of her underlying disease, but could be exacerbated by her medications. I think it might make more sense to change the neb treatments to levalbuterol plus ipratropium every 6 hours and p.r.n. Would try to taper the methylprednisolone soon in light of the elevated blood sugars. She will need a followup x-ray regarding the hypoventilatory changes. JAVY
[2016-11-15] MEDS: IPRATROPIUM BROMIDE NEB SOLN 0.02% 2.5 ML VIAL INH SCH (19:53)
[2016-11-15] MEDS: LEVALBUTEROL 1.25MG/0.5ML NEB INH SCH (19:53)
[2016-11-15] MEDS ORDERED: OPTIRAY 320 IV PRN (20:00)
--- NOTE | 2016-11-15 20:14 | DIAGNOSTIC IMAGING REPORT ---
CT ANGIOGRAM OF THE CHEST CLINICAL HISTORY: Atypical chest pain COMPARISON STUDY: 02/14/2015 TECHNIQUE: Following the IV administration of 87 mL of Optiray-320, CT angiogram of the thorax was performed from the thoracic inlet to the lung bases utilizing the pulmonary embolus protocol. Images are reviewed in the axial, sagittal, and coronal planes. IV contrast was administered without complication. MIP imaging was performed. CT DOSE: 701.55 mGy.cm FINDINGS: No pathologically enlarged axillary mediastinal or hilar lymph nodes were visualized. There was no evidence of thoracic aortic dilatation. There are right lower lobe pulmonary artery filling defects consistent with pulmonary embolism. These are age-indeterminate. There is a ventriculostomy catheter which terminates in the right pleural space. There is trace right pleural fluid. There are bibasilar opacities, likely atelectatic. IMPRESSION: 1. Right lower lobe pulmonary filling defects consistent with pulmonary embolism. These are age-indeterminate 2. Ventricular pleural shunt catheter. 3. Low lung volumes with bibasilar opacities likely atelectatic 4. Trace right pleural effusion Electronically signed by: Yair Morrison M.D. 11/15/2016 8:12 PM Dictated Date/Time: 11/15/2016 8:08 PM
[2016-11-15] MEDS ORDERED: NURSING VERBAL MED ORDER ONE (20:30)
[2016-11-15] MEDS ORDERED: LEVALBUTEROL/IPRATROPIUM NEB INH SCH (21:00)
[2016-11-15] MEDS: RANITIDINE HCL 150 MG TAB PO SCH (21:12)
[2016-11-15] MEDS: NORTRIPTYLINE HCL 25 MG CAP PO SCH (21:12)
[2016-11-15] MEDS: LITHIUM CARBONATE 300 MG TAB PO SCH (21:15)
[2016-11-15] MEDS: ENOXAPARIN 100 MG/1ML SYR SQ SCH (21:16)
[2016-11-15] MEDS: AZITHROMYCIN IV 500 MG in DEXTROSE 5% 250ML 250 ML IV SCH (21:25)
[2016-11-15] MEDS: ONDANSETRON INJ 2 MG/ML 2 ML VIAL IV PRN (21:25)
[2016-11-16 01:36] VITALS: PULSE 84; O2SAT 96
[2016-11-16] MEDS: LEVALBUTEROL 1.25MG/0.5ML NEB INH SCH ×4 (01:36→19:03)
[2016-11-16] MEDS: IPRATROPIUM BROMIDE NEB SOLN 0.02% 2.5 ML VIAL INH SCH ×4 (01:36→19:03)
[2016-11-16] MEDS: METHYLPREDNISOLONE IV 60 MG in SYRINGE 0 ML IV SCH ×3 (02:02→18:25)
[2016-11-16] MEDS: GUAIFENESIN 200 MG TAB PO SCH ×6 (04:01→23:51)
[2016-11-16] MEDS: LEVOTHYROXINE 25 MCG TAB PO SCH (05:25)
[2016-11-16 07:10] VITALS: BP 112/66; PULSE 82; PULSE 90; TEMP 36.6; O2SAT 98
--- NOTE | 2016-11-16 07:44 | Hospitalist Progress Note ---
Hospitalist Progress Note Date of Service Nov 16, 2016. (Cris Vasquez PA-C) Subjective Pt evaluation today including: conversation w/ patient, conversation w/ family , physical exam, chart review, lab review Pain: None PO Intake: Good Voiding: arango catheter in place The patient was seen and examined this morning. Pt reports feeling about the same as yesterday. Her mother Nata, is present at bedside. Pt reports her coughing comes in fits and that she is bringing up clear mucous moreso now, likely with the addition of guiafenisin. She is not wearing supplemental O2 this morning because respiratory therapy told her she didn't need it again today. She reports feeling like she needs it, but her sats are in the high 90s. Discussion was held regarding the CTA and finding of a right sided PE. Pt is on lo-estrin for excessive bleeding with menstrual periods, where she was having heavy periods for almost 3 weeks. She previously had a Mirena IUD x 5 years, and then needed it replaced. Attempt to replace this was done 3x by Dr. Grover whom the pt follows in clinic, however was unsuccessful, therefore she was started on oral contraceptive for this. She actually has an appointment with her next week on Monday for routine follow up. Discussion was held regarding anticoagulation with PE, and they are agreeable to Xarelto. Constitutional: No fever, No chills, No sweats, No fatigue Eyes: No redness, No diplopia ENT: No nasal symptoms, No sore throat, No trouble swallowing Respiratory: + cough, + sputum, + dyspnea on exertion (moving from chair to bed), No shortness of breath, No dyspnea at rest Cardiovascular: No chest pain, No palpitations Abdomen: No pain, No vomiting, No diarrhea, No constipation Musculoskeletal: No muscle pain, No swelling Neurologic: No weakness, No numbness/tingling (Cris Vasquez, WILLIAMS ) Objective Vital Signs Date Time Temp Pulse Resp B/P (MAP) Pulse Ox O2 Delivery O2 Flow Rate FiO2 11/16/16 07:10 82 16 98 Nasal Cannula 2.0 11/16/16 07:10 36.6 90 21 112/66 (81) 98 Nasal Cannula 2.0 11/16/16 01:36 84 16 96 Nasal Cannula 2.0 11/15/16 23:45 Nasal Cannula 2.0 11/15/16 22:55 36.7 84 20 116/75 (89) 96 Nasal Cannula 2.0 11/15/16 16:24 36.7 102 20 100/64 (76) 92 11/15/16 16:15 Nasal Cannula 1.0 11/15/16 14:22 107 16 99 Nasal Cannula 2.0 11/15/16 11:36 72 16 95 Room Air 11/15/16 10:39 96 Room Air 11/15/16 07:50 36.7 96 26 113/73 (86) 96 Nasal Cannula 2.0 11/15/16 07:45 Room Air (Cris Vasquez PA-C) Physical Exam Notes: Notes: General Appearance: WD/WN, NAD, + obese Eyes: PERRL, EOMI ENT: hearing grossly normal, pharynx normal Neck: supple, no JVD Respiratory/Chest: chest non-tender, no respiratory distress, no accessory muscle use, + pertinent finding (On room air, Breath sounds are clear throughout , + cough with clear mucous production, no wheezing, rales or rhonchi, + accessed mediport in R chest wall) Cardiovascular: regular rate, rhythm, no murmur Abdomen: normal bowel sounds, non tender, soft, + pertinent finding (Arango cath in place draining clear yellow urine. ) Extremities: non-tender, + pertinent finding (Bilateral BKA, stumps intact with waffle boots underneath. 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 Pt presents with progressive SOB a persistent dry cough and wheezing which is not responding well to her home inhalers. She had multiple respiratory treatments in the ER to minimal effect and continues to exhibit poor air movement. R Pulmonary embolus, age indeterminate - CTA completed last evening for elevated d-dimer with pt's hx of being on Lo- estrin control as as outpatient. Pt is on lo-estrin for excessive bleeding with menstrual periods, where she was having heavy periods for almost 3 weeks. She previously had a Mirena IUD x 5 years, and then needed it replaced. Attempt to replace this was done 3x by Dr. Valladares whom the pt follows in clinic, however was unsuccessful, therefore she was started on oral contraceptive for this. She has an outpt appointment scheduled on December 13. - Stop lo-estrin : discussed with Dr. Valladares, will plan to decide on other forms of control at f/u appt. - D/c lovenox 1mg/kg, will plan starting xarelto today after discussion with pt and her mother. Risks and possible adverse effects were discussed with both of them at bedside. Status asthmaticus - Pt placed on scheduled ipatroprium albuterol, IV Solumedrol 60 mg decreased to Q8H, likely can transition to a short prednisone taper - Zithromax stopped since uCx positive, afebrile and her CXR is not consistent with acute PNM. - Weaned off supplemental O2, clear breath sounds today - Encourage incentive spirometry, cont Mucinex and tessalon pearls Klebsiella pneumonia UTI - UCx with + klebsiella pneumonia - will start cipro 500 mg BID x 7 more days, and d/c azithromycin - She has a history of suprapubic catheter placement with recurrent UTIs and recent resistant E. coli and Klebsiella infections. Pt recently completed a course of Diflucan for yeast in her urine. - Leukocytosis is 14 K today, also likely partially reactive with PE as noted above. Bipolar disease with psychosis - recent admission with hallucinations - stable - cont current, extensive psychoactive regimen with lithium 450 mg QAM and 600 mg QPM, topirimate 75 mg BID. - Abilify has been titrated down and now stopped per pt. Her psychiatrist has started her on Risperdol 1 mg BID so will order this for inpatient. DVT ppx: heparin q8h sq CODE STATUS: FULL CODE Disposition: From home, discharge when medically stable, likely within 1 day (Cris Vasquez, WILLIAMS) [place] Physician Supervision Note: I interviewed and examined the patient. Discussed with Maria A Vasquez PAC and agree with findings and plan as documented in the note. Any exceptions or clarifications are listed here: None Pt initially thought to have asthma exacerbation, CT scan confirms right sided PE, associated with estrogen therapy vitals stable not hypoxic lungs exp wheezing persists R>L, did improve somewhat with heparin use, pt agrees to xarelto after discharge asthma exacerbation, pulmonary orders CTA, steroids, nebs and anxiolytic meds (George Powell M.D.)
[2016-11-16] MEDS: SENNA 8.6 MG TAB PO SCH (09:00)
[2016-11-16] MEDS: ARIPIprazole TAB 5 MG TAB PO SCH (09:00)
[2016-11-16] MEDS: FLUTICASONE/SALMETEROL (ADVAIR) 500/50 INH 14 PUFF INH SCH ×2 (09:07→20:52)
[2016-11-16] MEDS: GABAPENTIN 300 MG CAP PO SCH ×3 (09:07→20:53)
[2016-11-16] MEDS: CLONAZEPAM 0.5 MG TAB PO SCH ×2 (09:07→21:33)
[2016-11-16] MEDS: BENZTROPINE MESYLATE 1 MG TAB PO SCH ×2 (09:07→20:51)
[2016-11-16] MEDS: ENOXAPARIN 100 MG/1ML SYR SQ SCH (09:08)
[2016-11-16] MEDS: LITHIUM CARBONATE 450 MG TABCR PO SCH (09:08)
[2016-11-16] MEDS: PANTOprazole SOD 40 MG TAB PO SCH (09:09)
[2016-11-16] MEDS: CHOLECALCIFEROL 1000 INTER.UNIT TAB PO SCH (09:09)
[2016-11-16] MEDS: BENZONATATE 100MG CAP PO SCH ×3 (09:09→20:51)
[2016-11-16] MEDS: TOPIRAMATE 25 MG TAB PO SCH ×2 (09:10→20:50)
[2016-11-16] MEDS: FERROUS SULFATE 325 MG TAB PO SCH ×2 (09:10→18:25)
[2016-11-16] MEDS: HYOSCYAMINE SULFATE 0.125 MG SL TAB PO SCH ×4 (09:10→20:47)
[2016-11-16] MEDS: LINZESS~ORDER AWAITING ACTION SCH ×3 (09:11→23:46)
[2016-11-16] MEDS: CYANOCOBALAMIN 500 MCG TAB (VIT B-12) PO SCH ×2 (09:11→20:54)
[2016-11-16] MEDS: DOCUSATE SODIUM 100 MG CAP PO SCH ×2 (09:11→20:53)
--- NOTE | 2016-11-16 09:25 | Pulmonology Progress Note ---
Pulmonary Progress Note Date of Service Nov 16, 2016. Attending Dr. Castaneda Subjective Slept well overnight. Appetite is improving. States reflux is well controlled. Denies pain. Continued cough productive of clear/yellow sputum. No hemoptysis. Objective 31-yo female admitted through [facility] ER 11/13/16 with h/o cough, chest pain and dyspnea. Prior records were reviewed. PMHx includes: spina bifida, BP shunt - s/p multiple revisions, recurrent UTI, bilateral BKA s/p bilateral osteomyelitis, migraine headache, gastric ulcer, anemia, wound- MRSA, BiPolar 1, GERD, and asthma. In the ER labs notable for leukocytosis. She was treated with bronchodilators, Solu-medrol, and azithromycin. D-dimer elevated and subsequent CTA (as below) consistent with pulmonary emboli. Enoxaparin initiated. CT Angiogram 11/15/16: RLL pulmonary filling defects consistent with pulmonary embolism. Ventricular pleural shunt catheter. Low lung volumes with bibasilar opacities - likely atelectatic. Trace right pleural effusion. Vital Signs: - Afebrile. HD stable. 96-98% - 2LPM -weaned to RA today - Urine Culture: GN bacilli Physical Exam: Constitutional: Obese female lying in bed. Alert. No acute distress HEENT: + facial symmetry. EOMi, PERRLA. Moist mucous membranes Respiratory: non-labored respirations. No wheeze, rales or rhonchi CV: Rapid rate, regular rhythm. No MRG appreciated. Abdomen: Soft active bowel sounds GI: Me[place] draining translucent yellow urine MSK/Extremities: Bilateral BKA, no edema. UE moving symmetrically. Assessment & Plan 31-yo female admitted with pulmonary embolism and cough: risk for PE include hormone replacement (for h/o menorrhagia), stasis, and neural tube defect 1. Echocardiogram 2. Protein C, Protein S, Factor V, II, CRP, antithrombin III, homocysteine, B12 , B6, Folate, antiphospholipid AB/aPL 3. Recommend discontinuation of hormone replacement if able with coordination with gynecology with h/o menorrhagia 4. Transition to Xarelto post echocardiogram Data Medications: Current Inpatient Medications Medications (Trade) Dose Ordered Sig/Brenna Route Start Time Stop Time Status Last Admin Dose Admin Acetaminophen (Tylenol Tab) 650 mg Q4H PRN PO 11/14/16 00:15 12/14/16 00:14 Al Hydrox/Mg Hydrox/Simethicone (Maalox Max Susp) 15 ml Q4H PRN PO 11/14/16 00:15 12/14/16 00:14 Magnesium Hydroxide (Milk Of Magnesia Susp) 30 ml Q6H PRN PO 11/14/16 00:15 12/14/16 00:14 Polyethylene (Miralax Powder Packet) 17 gm DAILY PRN PO 11/14/16 00:15 12/14/16 00:14 Ondansetron HCl (Zofran Inj) 4 mg Q6H PRN IV 11/14/16 00:15 12/14/16 00:14 11/15/16 21:25 4 MG Clonazepam (Klonopin Tab) 0.5 mg BID PO 11/14/16 09:00 12/14/16 08:59 11/16/16 09:07 0.5 MG Docusate Sodium (coLACE CAP) 100 mg BID PO 11/14/16 09:00 12/14/16 08:59 11/16/16 09:11 100 MG Salmeterol Xinafoate/ Fluticasone (Advair Diskus 500/50 Inh) 1 puff BID INH 11/14/16 09:00 12/14/16 08:59 11/16/16 09:07 1 PUFF Gabapentin (Neurontin Cap) 300 mg TID PO 11/14/16 09:00 12/14/16 08:59 11/16/16 09:07 300 MG Hydroxyzine HCl (Vistaril Tab) 25 mg QD@1200 PO 11/14/16 12:00 12/14/16 11:59 11/15/16 13:16 25 MG Hyoscyamine Sulfate (Levsin Tab) 0.125 mg QID PO 11/14/16 09:00 12/14/16 08:59 11/16/16 09:10 0.125 MG Indomethacin (Indocin Cap) 25 mg TID PRN PO 11/14/16 00:15 12/14/16 00:14 Levothyroxine Sodium (Synthroid Tab) 25 mcg DAILYBB PO 11/14/16 06:00 12/14/16 05:59 11/16/16 05:25 25 MCG [place] Carbonate (Eskalith Cr Tab) 450 mg QAM PO 11/14/16 09:00 12/14/16 08:59 11/16/16 09:08 450 MG Meclizine HCl (Antivert Tab) 25 mg TID PRN PO 11/14/16 00:15 12/14/16 00:14 Nortriptyline HCl (Pamelor Cap) 100 mg HS PO 11/14/16 21:00 12/14/16 20:59 11/15/16 21:12 100 MG Nystatin (Mycostatin Powder) 1 appln UD PRN EXT 11/14/16 00:15 12/14/16 00:14 Pantoprazole Sodium (Protonix Tab) 40 mg QAM PO 11/14/16 09:00 12/14/16 08:59 11/16/16 09:09 40 MG Ranitidine HCl (zANTac TAB) 150 mg HS PO 11/14/16 21:00 12/14/16 20:59 11/15/16 21:12 150 MG Senna (Senokot Tab) 8.6 mg DAILY PO 11/14/16 09:00 12/14/16 08:59 Topiramate (Topamax Tab) 75 mg BID PO 11/14/16 09:00 12/14/16 08:59 11/16/16 09:10 75 MG Tramadol HCl (Ultram Tab) 50 mg Q4H PRN PO 11/14/16 00:15 12/14/16 00:14 Cholecalciferol (Vitamin D Tab) 2,000 inter.unit DAILY PO 11/14/16 09:00 12/14/16 08:59 11/16/16 09:09 2,000 INTER.UNIT Miscellaneous Information (Order Awaiting Action) 1 ea QS N/A 11/14/16 02:30 12/14/16 02:29 Ferrous Sulfate (Feosol Tab) 325 mg BIDM PO 11/14/16 08:30 12/14/16 08:29 11/16/16 09:10 325 MG Miscellaneous Information (Order Awaiting Action) 1 ea QS N/A 11/14/16 02:30 12/14/16 02:29 [place] Carbonate ([place] Carbonate Tab) 600 mg QPM PO 11/14/16 21:00 12/14/16 20:59 11/15/16 21:15 600 MG Azithromycin 500 mg/Dextrose 255 ml @ 125 mls/hr Q24H IV 11/14/16 22:00 11/21/16 21:59 11/15/16 21:25 125 MLS/HR Aripiprazole (Abilify Tab) 5 mg DAILY PO 11/14/16 10:00 12/14/16 09:59 11/14/16 10:59 5 MG Cyanocobalamin (Vitamin B-12 Tab) 500 mcg BID PO 11/14/16 21:00 12/14/16 08:59 11/16/16 09:11 500 MCG Benztropine Mesylate (Cogentin Tab) 1 mg BID PO 11/14/16 21:00 12/14/16 10:44 11/16/16 09:07 1 MG Heparin Sodium (Porcine) (Heparin 10 Unit/ ml 5 ml Flush) 5 ml PRN PRN FLUSH 11/14/16 13:00 12/14/16 12:59 11/15/16 23:51 5 ML Miconazole Nitrate (Desenex Powder) 1 appln BID PRN EXT 11/14/16 15:15 12/14/16 15:14 11/15/16 13:49 1 APPLN Guaifenesin (Organidin Nr Tab) 200 mg Q4H PO 11/15/16 12:00 12/15/16 11:59 11/16/16 09:10 200 MG Benzonatate (Tessalon Perles Cap) 100 mg TID PO 11/15/16 14:00 12/15/16 13:59 11/16/16 09:09 100 MG Levalbuterol (Xopenex 0.63 Mg/ 3 Ml Neb) 0.63 mg Q4 PRN INH 11/15/16 17:00 12/15/16 16:59 Ipratropium Eldred (Atrovent 0.02% 0.5MG/2.5ML Neb) 0.5 mg Q6R INH 11/15/16 21:00 12/15/16 20:59 11/16/16 01:36 0.5 MG Levalbuterol (Xopenex 1.25MG/ 0.5ML Neb) 1.25 mg Q6R INH 11/15/16 21:00 12/15/16 20:59 11/16/16 01:36 1.25 MG Ioversol (Optiray 320) 111 ml UD PRN IV 11/15/16 20:00 11/19/16 19:59 Enoxaparin Sodium (Lovenox Inj) 100 mg Q12 SQ 11/15/16 21:00 12/15/16 20:59 11/16/16 09:08 100 MG Methylprednisolone Sodium Succinate 60 mg/Syringe 0.96 ml @ 1.5 mls/min Q8H IV 11/16/16 10:00 12/14/16 01:59 Vital Signs: Date Time Temp Pulse Resp B/P (MAP) Pulse Ox O2 Delivery O2 Flow Rate FiO2 11/16/16 07:10 82 16 98 Nasal Cannula 2.0 11/16/16 07:10 36.6 90 21 112/66 (81) 98 Nasal Cannula 2.0 11/16/16 01:36 84 16 96 Nasal Cannula 2.0 11/15/16 23:45 Nasal Cannula 2.0 11/15/16 22:55 36.7 84 20 116/75 (89) 96 Nasal Cannula 2.0 11/15/16 16:24 36.7 102 20 100/64 (76) 92 11/15/16 16:15 Nasal Cannula 1.0 11/15/16 14:22 107 16 99 Nasal Cannula 2.0 11/15/16 11:36 72 16 95 Room Air 11/15/16 10:39 96 Room Air Laboratory Results: Last 24 Hours Test 11/15/16 17:28 D-Dimer 1790 ug/L U
[2016-11-16 11:51] LABS: MEAN CELL VOLUME 95.2 fL (80-100); MEAN CORPUSCULAR HEMOGLOBIN 29.8 pg (25-34); MEAN CORPUSCULAR HGB CONC 31.3 g/dl (32-36); MEAN PLATELET VOLUME 10.3 fL (7.4-10.4); PLATELET COUNT 205 K/uL (130-400); RED BLOOD COUNT 3.99 M/uL (4.2-5.4); WHITE BLOOD COUNT 14.27 K/uL (4.8-10.8)
[2016-11-16 12:15] LABS: BUN/CREATININE RATIO 14.8 (10-20); CALCIUM 8.5 mg/dl (8.5-10.1); CREATININE 0.76 mg/dl (0.60-1.20); POTASSIUM 3.4 mmol/L (3.5-5.1)
[2016-11-16] MEDS: hydrOXYzine HCL 25 MG TAB PO SCH (12:22)
--- NOTE | 2016-11-16 13:01 | Clinical Documentation Query ---
SHLOMO Barillas : CLINICAL DOCUMENTATION QUERY Patient is a 31 year old female presenting with progressive SOB and persistent dry cough and wheezing, unresponsive to inhalers. Minimal improvement noted with multiple respiratory treatments. Pulmonary systems consultant raised concern for thromboembolic disease. Elevated d-dimer value prompted a CT scan of the chest which demonstrated RLL pulmonary emboli that are age indeterminate. Please explicitly specify your clinical opinion regarding the POA status of this important clinical diagnosis In your clinical opinion is this patient being managed for: (xx ) Right pulmonary embolism, (likely) POA ( ) Other explanation of clinical findings (Please Explain) ( ) Unable to determine (Please Define) ( ) Need to Discuss ( ) Not Agree The medical record reflects the following clinical findings, treatment, and risk factors. Clinical Indicators: As above Treatment: Lovenox with transition to Xarelto, hypercoagulation workup Risk Factors:Obesity, physical inactivity, hormone replacement Please clarify and document your clinical opinion in the progress notes and discharge summary. Terms such as "probable", "suspected", "likely", "questionable", "possible", or "still to be ruled out" are acceptable. IF IN AGREEMENT, YOU MUST DOCUMENT ABOVE DIAGNOSTIC STATEMENT IN DAILY PROGRESS NOTES AND DISCHARGE SUMMARY. This document is not part of the patient's record. Thank You, Jad Arias, XAVIER [phone]
--- NOTE | 2016-11-16 13:02 | Clinical Documentation Query ---
Ms. BROWNHILARY : CLINICAL DOCUMENTATION QUERY Patient is a 31 year old female presenting with progressive SOB and persistent dry cough and wheezing, unresponsive to inhalers. Minimal improvement noted with multiple respiratory treatments. Pulmonary protection consultant raised concern for thromboembolic disease. Elevated d-dimer value prompted a CT scan of the chest which demonstrated RLL pulmonary emboli that are age indeterminate. Please explicitly specify your clinical opinion regarding the POA status of this important clinical diagnosis In your clinical opinion is this patient being managed for: ( ) Right pulmonary embolism, (likely) POA ( ) Other explanation of clinical findings (Please Explain) ( ) Unable to determine (Please Define) ( ) Need to Discuss ( ) Not Agree The medical record reflects the following clinical findings, treatment, and risk factors. Clinical Indicators: As above Treatment: Lovenox with transition to Xarelto, hypercoagulation workup Risk Factors:Obesity, physical inactivity, hormone replacement Please clarify and document your clinical opinion in the progress notes and discharge summary. Terms such as "probable", "suspected", "likely", "questionable", "possible", or "still to be ruled out" are acceptable. IF IN AGREEMENT, YOU MUST DOCUMENT ABOVE DIAGNOSTIC STATEMENT IN DAILY PROGRESS NOTES AND DISCHARGE SUMMARY. This document is not part of the patient's record. Thank You, Jad Arias RN [phone]
[2016-11-16] MEDS: RISPERIDONE 1 MG TAB PO SCH ×2 (13:15→20:51)
[2016-11-16 14:07] VITALS: PULSE 101; O2SAT 97
[2016-11-16] MEDS: CIPROFLOXACIN 500 MG TAB PO SCH ×2 (14:47→20:52)
[2016-11-16 15:00] VITALS: BP 100/65; PULSE 79; TEMP 36.6; O2SAT 93
[2016-11-16 15:04] LABS: PARTIAL THROMBOPLASTIN RATIO 1.1
[2016-11-16] MEDS: ONDANSETRON INJ 2 MG/ML 2 ML VIAL IV PRN (18:26)
[2016-11-16 19:05] VITALS: PULSE 110; O2SAT 96
[2016-11-16] MEDS: LITHIUM CARBONATE 300 MG TAB PO SCH (20:47)
[2016-11-16] MEDS: RIVAROXABAN TAB 15 MG TAB PO SCH (20:48)
[2016-11-16] MEDS: NORTRIPTYLINE HCL 25 MG CAP PO SCH (20:49)
[2016-11-16] MEDS: RANITIDINE HCL 150 MG TAB PO SCH (20:54)
[2016-11-16] MEDS: MICONAZOLE NITRATE POWDER 43 GM EXT PRN (21:34)
[2016-11-16 23:05] VITALS: BP 106/67; PULSE 96; TEMP 36.8; O2SAT 92
[2016-11-17] VITALS (8 sets, daily range): BP systolic 103–118; BP diastolic 65–77; PULSE 79–105; TEMP 36.5–36.7; O2SAT 92–94
[2016-11-17] MEDS: IPRATROPIUM BROMIDE NEB SOLN 0.02% 2.5 ML VIAL INH SCH ×3 (01:47→14:33)
[2016-11-17] MEDS: LEVALBUTEROL 1.25MG/0.5ML NEB INH SCH ×3 (01:47→14:33)
[2016-11-17] MEDS: METHYLPREDNISOLONE IV 60 MG in SYRINGE 0 ML IV SCH ×2 (01:53→10:00)
[2016-11-17] MEDS: GUAIFENESIN 200 MG TAB PO SCH ×5 (03:56→20:37)
[2016-11-17] MEDS: LEVOTHYROXINE 25 MCG TAB PO SCH (05:30)
[2016-11-17 05:51] LABS: HEMATOCRIT 38.1 % (37-47); MEAN CELL VOLUME 95.3 fL (80-100); MEAN CORPUSCULAR HEMOGLOBIN 29.5 pg (25-34); MEAN PLATELET VOLUME 10.2 fL (7.4-10.4); PLATELET COUNT 203 K/uL (130-400); WHITE BLOOD COUNT 10.73 K/uL (4.8-10.8)
[2016-11-17] MEDS: RIVAROXABAN TAB 15 MG TAB PO SCH ×2 (08:29→20:41)
[2016-11-17] MEDS: LITHIUM CARBONATE 450 MG TABCR PO SCH (08:29)
[2016-11-17] MEDS: FLUTICASONE/SALMETEROL (ADVAIR) 500/50 INH 14 PUFF INH SCH ×2 (08:29→20:38)
[2016-11-17] MEDS: BENZONATATE 100MG CAP PO SCH ×3 (08:30→20:44)
[2016-11-17] MEDS: BENZTROPINE MESYLATE 1 MG TAB PO SCH ×2 (08:30→20:40)
[2016-11-17] MEDS: HYOSCYAMINE SULFATE 0.125 MG SL TAB PO SCH ×4 (08:30→20:46)
[2016-11-17] MEDS: RISPERIDONE 1 MG TAB PO SCH ×2 (08:30→20:42)
[2016-11-17] MEDS: FERROUS SULFATE 325 MG TAB PO SCH ×2 (08:31→18:17)
[2016-11-17] MEDS: CHOLECALCIFEROL 1000 INTER.UNIT TAB PO SCH (08:31)
[2016-11-17] MEDS: CYANOCOBALAMIN 500 MCG TAB (VIT B-12) PO SCH ×2 (08:31→20:47)
[2016-11-17] MEDS: DOCUSATE SODIUM 100 MG CAP PO SCH ×2 (08:31→20:46)
[2016-11-17] MEDS: TOPIRAMATE 25 MG TAB PO SCH ×2 (08:31→20:44)
[2016-11-17] MEDS: PANTOprazole SOD 40 MG TAB PO SCH (08:31)
[2016-11-17] MEDS: SENNA 8.6 MG TAB PO SCH (08:32)
[2016-11-17] MEDS: CIPROFLOXACIN 500 MG TAB PO SCH ×2 (08:32→21:39)
[2016-11-17] MEDS: ARIPIprazole TAB 5 MG TAB PO SCH (08:32)
[2016-11-17] MEDS: CLONAZEPAM 0.5 MG TAB PO SCH ×2 (08:32→21:38)
[2016-11-17] MEDS: LINZESS~ORDER AWAITING ACTION SCH ×3 (08:33→23:10)
[2016-11-17] MEDS: GABAPENTIN 300 MG CAP PO SCH ×3 (08:33→20:42)
[2016-11-17] MEDS ORDERED: PERFLUTREN LIPID MICROSPHERE (DEFINITY) IV ONE (09:55)
--- NOTE | 2016-11-17 10:43 | Pulmonology Progress Note ---
Pulmonary Progress Note Date of Service Nov 17, 2016. Attending Dr. Castaneda Subjective Reports continued episodic cough and intermittent wheeze. Single episode of productive blood streaked sputum yesterday. Episode of epistaxis last night - resolved quickly. Reports continued sensation of dyspnea. No chest pain. Appetite in-tact. Slept well over the night. Objective 31-yo female admitted through [facility] ER 11/13/16 with h/o cough, chest pain and dyspnea. Prior records were reviewed. PMHx includes: spina bifida, BP shunt - s/p multiple revisions, recurrent UTI, bilateral BKA s/p bilateral osteomyelitis, migraine headache, gastric ulcer, anemia, wound- MRSA, BiPolar 1, GERD, and asthma. In the ER labs notable for leukocytosis. She was treated with bronchodilators, methylprednisolone, and initially azithromycin. D-dimer elevated and subsequent CTA (as below) consistent with pulmonary emboli. Enoxaparin initiated then transitioned to Xarelto 15mg BID. Urine + klebsiella and antimicrobial therapy transitioned to Ciprofloxacin. CT Angiogram 11/15/16: RLL pulmonary filling defects consistent with pulmonary embolism. Ventricular pleural shunt catheter. Low lung volumes with bibasilar opacities - likely atelectatic. Trace right pleural effusion. Vital Signs: - Afebrile. HD stable. 96-98%: RA - Urine Culture: quinolone sensitive klebsiella pneumoniae - WBC: 10.73 (resolved) - Hgb/Hct/Plts: 11.8/38.1/203 Physical Exam: Constitutional: Obese female lying in bed. Alert. No acute distress HEENT: + facial symmetry. EOMi, PERRLA. Moist mucous membranes. Scant dark sputum adherent to the soft palate. Respiratory: non-labored respirations. Diminished movement at bases. No wheeze CV: Rapid rate, regular rhythm. No MRG appreciated. Abdomen: Soft active bowel sounds GI: [place] draining translucent yellow urine MSK/Extremities: Bilateral BKA, no edema. UE moving symmetrically. Assessment & Plan 31-yo female admitted with pulmonary embolism, asthma exacerbation, and klebsiella UTI: risk for PE include hormone replacement (for h/o menorrhagia), stasis, and neural tube defect 1. Pulmonary embolism: - off hormone replacement - anticoagulation x 3-months minimum and follow pending labs 2. Exacerbation of asthma: - No significant bronchospasm on exam - Wean methylprednisolone to 50mg BID, continue scheduled nebulizer and Advair Discussed with Dr. Castaneda Data Medications: Current Inpatient Medications Medications (Trade) Dose Ordered Sig/Brenna Route Start Time Stop Time Status Last Admin Dose Admin Acetaminophen (Tylenol Tab) 650 mg Q4H PRN PO 11/14/16 00:15 12/14/16 00:14 Al Hydrox/Mg Hydrox/Simethicone (Maalox Max Susp) 15 ml Q4H PRN PO 11/14/16 00:15 12/14/16 00:14 Magnesium Hydroxide (Milk Of Magnesia Susp) 30 ml Q6H PRN PO 11/14/16 00:15 12/14/16 00:14 Polyethylene (Miralax Powder Packet) 17 gm DAILY PRN PO 11/14/16 00:15 12/14/16 00:14 Ondansetron HCl (Zofran Inj) 4 mg Q6H PRN IV 11/14/16 00:15 12/14/16 00:14 11/16/16 18:26 4 MG Clonazepam (Klonopin Tab) 0.5 mg BID PO 11/14/16 09:00 12/14/16 08:59 11/17/16 08:32 0.5 MG Docusate Sodium (coLACE CAP) 100 mg BID PO 11/14/16 09:00 12/14/16 08:59 11/17/16 08:31 100 MG Salmeterol Xinafoate/ Fluticasone (Advair Diskus 500/50 Inh) 1 puff BID INH 11/14/16 09:00 12/14/16 08:59 11/17/16 08:29 1 PUFF Gabapentin (Neurontin Cap) 300 mg TID PO 11/14/16 09:00 12/14/16 08:59 11/17/16 08:33 300 MG Hydroxyzine HCl (Vistaril Tab) 25 mg QD@1200 PO 11/14/16 12:00 12/14/16 11:59 11/16/16 12:22 25 MG Hyoscyamine Sulfate (Levsin Tab) 0.125 mg QID PO 11/14/16 09:00 12/14/16 08:59 11/17/16 08:30 0.125 MG Indomethacin (Indocin Cap) 25 mg TID PRN PO 11/14/16 00:15 12/14/16 00:14 Levothyroxine Sodium (Synthroid Tab) 25 mcg DAILYBB PO 11/14/16 06:00 12/14/16 05:59 11/17/16 05:30 25 MCG [place] Carbonate (Eskalith Cr Tab) 450 mg QAM PO 11/14/16 09:00 12/14/16 08:59 11/17/16 08:29 450 MG Meclizine HCl (Antivert Tab) 25 mg TID PRN PO 11/14/16 00:15 12/14/16 00:14 Nortriptyline HCl (Pamelor Cap) 100 mg HS PO 11/14/16 21:00 12/14/16 20:59 11/16/16 20:49 100 MG Nystatin (Mycostatin Powder) 1 appln UD PRN EXT 11/14/16 00:15 12/14/16 00:14 Pantoprazole Sodium (Protonix Tab) 40 mg QAM PO 11/14/16 09:00 12/14/16 08:59 11/17/16 08:31 40 MG Ranitidine HCl (zANTac TAB) 150 mg HS PO 11/14/16 21:00 12/14/16 20:59 11/16/16 20:54 150 MG Senna (Senokot Tab) 8.6 mg DAILY PO 11/14/16 09:00 12/14/16 08:59 11/17/16 08:32 8.6 MG Topiramate (Topamax Tab) 75 mg BID PO 11/14/16 09:00 12/14/16 08:59 11/17/16 08:31 75 MG Tramadol HCl (Ultram Tab) 50 mg Q4H PRN PO 11/14/16 00:15 12/14/16 00:14 Cholecalciferol (Vitamin D Tab) 2,000 inter.unit DAILY PO 11/14/16 09:00 12/14/16 08:59 11/17/16 08:31 2,000 INTER.UNIT Miscellaneous Information (Order Awaiting Action) 1 ea QS N/A 11/14/16 02:30 12/14/16 02:29 Ferrous Sulfate (Feosol Tab) 325 mg BIDM PO 11/14/16 08:30 12/14/16 08:29 11/17/16 08:31 325 MG Miscellaneous Information (Order Awaiting Action) 1 ea QS N/A 11/14/16 02:30 12/14/16 02:29 [place] Carbonate ([place] Carbonate Tab) 600 mg QPM PO 11/14/16 21:00 12/14/16 20:59 11/16/16 20:47 600 MG Aripiprazole (Abilify Tab) 5 mg DAILY PO 11/14/16 10:00 12/14/16 09:59 11/14/16 10:59 5 MG Cyanocobalamin (Vitamin B-12 Tab) 500 mcg BID PO 11/14/16 21:00 12/14/16 08:59 11/17/16 08:31 500 MCG Benztropine Mesylate (Cogentin Tab) 1 mg BID PO 11/14/16 21:00 12/14/16 10:44 11/17/16 08:30 1 MG Miconazole Nitrate (Desenex Powder) 1 appln BID PRN EXT 11/14/16 15:15 12/14/16 15:14 11/16/16 21:34 1 APPLN Guaifenesin (Organidin Nr Tab) 200 mg Q4H PO 11/15/16 12:00 12/15/16 11:59 11/17/16 08:32 200 MG Benzonatate (Tessalon Perles Cap) 100 mg TID PO 11/15/16 14:00 12/15/16 13:59 11/17/16 08:30 100 MG Levalbuterol (Xopenex 0.63 Mg/ 3 Ml Neb) 0.63 mg Q4 PRN INH 11/15/16 17:00 12/15/16 16:59 Ipratropium [place] (Atrovent 0.02% 0.5MG/2.5ML Neb) 0.5 mg Q6R INH 11/15/16 21:00 12/15/16 20:59 11/17/16 07:09 0.5 MG Levalbuterol (Xopenex 1.25MG/ 0.5ML Neb) 1.25 mg Q6R INH 11/15/16 21:00 12/15/16 20:59 11/17/16 07:09 1.25 MG Ioversol (Optiray 320) 111 ml UD PRN IV 11/15/16 20:00 11/19/16 19:59 Methylprednisolone Sodium Succinate 60 mg/Syringe 0.96 ml @ 1.5 mls/min Q8H IV 11/16/16 10:00 12/14/16 01:59 11/17/16 10:00 1.5 MLS/MIN Ciprofloxacin (Cipro Tab) 500 mg BID PO 11/16/16 12:15 11/21/16 12:14 11/17/16 08:32 500 MG Rivaroxaban (Xarelto Tab) 15 mg BID PO 11/16/16 21:00 12/07/16 09:01 11/17/16 08:29 15 MG Miscellaneous Information (Pending Order) 1 ea QS N/A 12/08/16 00:00 01/07/17 00:00 Risperidone (Risperdal Tab) 1 mg BID PO 11/16/16 13:15 12/16/16 13:14 11/17/16 08:30 1 MG Diphenhydramine HCl (Benadryl Cap) 25 mg BID@0830,2030 PO 11/16/16 12:15 11/21/16 12:14 11/17/16 08:33 25 MG Heparin Sodium (Porcine) (Heparin 100 Unit/ml 5ml Flush) 5 ml PRN PRN IV 11/17/16 02:00 12/17/16 01:59 11/17/16 10:01 5 ML Vital Signs: Date Time Temp Pulse Resp B/P (MAP) Pulse Ox O2 Delivery O2 Flow Rate FiO2 11/17/16 08:45 94 Room Air 11/17/16 07:55 36.5 93 20 117/75 (89) 94 Room Air 11/17/16 07:10 79 16 92 Room Air 11/17/16 01:47 96 16 92 Room Air 11/17/16 00:15 Room Air 11/16/16 23:05 36.8 96 16 106/67 (80) 92 Room Air 11/16/16 19:05 110 16 96 Room Air 11/16/16 17:04 Room Air 11/16/16 15:00 36.6 79 18 100/65 (77) 93 Room Air 11/16/16 14:07 101 16 97 Room Air Laboratory Results: Last 24 Hours Test 11/16/16 11:33 11/16/16 14:06 11/17/16 05:30 White Blood Count 14.27 K/uL 10.73 K/uL Red Blood Count 3.99 M/uL 4.00 M/uL Hemoglobin 11.9 g/dL 11.8 g/dL Hematocrit 38.0 % 38.1 % Mean Corpuscular Volume 95.2 fL 95.3 fL Mean Corpuscular Hemoglobin 29.8 pg 29.5 pg Mean Corpuscular Hemoglobin Concent 31.3 g/dl 31.0 g/dl RDW Standard Deviation 51.7 fL 51.8 fL RDW Coefficient of Variation 14.9 % 14.9 % Platelet Count 205 K/uL 203 K/uL Mean Platelet Volume 10.3 fL 10.2 fL Sodium Level 147 mmol/L Potassium Level 3.4 mmol/L Chloride Level 116 mmol/L Carbon Dioxide Level 21 mmol/L Anion Gap 10.0 mmol/L Blood Urea Nitrogen 11 mg/dl Creatinine 0.76 mg/dl Est Creatinine Clear Calc Drug Dose 124.2 ml/min Estimated GFR () 122.9 Estimated GFR (Non- 106.0 BUN/Creatinine Ratio 14.8 Random Glucose 169 mg/dl Calcium Level 8.5 mg/dl Activated Partial Thromboplast Time 29.5 SECONDS Partial Thromboplastin Ratio 1.1 Vitamin B12 Level > 2000 pg/mL Folate 9.69 ng/mL
[2016-11-17] MEDS: hydrOXYzine HCL 25 MG TAB PO SCH (11:37)
--- NOTE | 2016-11-17 13:26 | ECHOCARDIOGRAM REPORT ---
*NOTICE TO RECEIVING LIBERTARIAN AGENCY This information is strictly Confidential and protected under [place] law. [place] law prohibits you from making any further disclosure of this information unless further disclosure is expressly permitted by the written consent of the person to whom it pertains or is authorized by law. A general authorization for the release of medical or other information is not sufficient for this purpose. Hospital accepts no responsibility if the information is made available to any other person, INCLUDING THE PATIENT. Interpretation Summary * Name: LUCERO BERRIOS Study Date: 11/17/2016 09:34 AM BP: 112/66 mmHg * Patient Location: C.MSN\S\N388\S\2 HR: 101 * : 1985 (M/d/yyyy) Gender: Female Height: 62 in * Age: 31 yrs Ethnicity: CA Weight: 231 lb * Ordering Physician: Mamta Villavicencio * Referring Physician: No Doctor, Assigned * Performed By: Stephanie Dickerson RDCS * * Reason For Study: Pulmonary embolism * BSA: 2.0 m2 * -- Conclusions -- * 1. Normal left ventricular size and hyperdynamic systolic function. EF > 70%. No regional wall motion abnormalities. No left ventricular hypertrophy. * 2. No significant valvular abnormalities visualized (valve not well seen). * 3. Mildly elevated right ventricular systolic pressure; 41mmHg. * 4. Technically difficult study, enhanced with IV Definity. * 5. No prior study available for comparison. Procedure Details * A complete two-dimensional transthoracic echocardiogram was performed (2D, M-mode, Doppler and color flow Doppler). * A contrast injection of Definity was performed to improve assessment of LV function. * Contrast was injected into an intravenous site in the central line. * One vial of Definity ultrasound contrast was diluted in normal saline to a total volume of 10 ml. A total of '3' ml of solution was administered during imaging. * Lot # [id number] of Definity utilized for procedure. * Expiration date NOV 20. * The attending nurse who injected the contrast agent was Yessica Christianson RN. Left Ventricle * Normal left ventricular size and hyperdynamic systolic function. EF > 70%. No regional wall motion abnormalities. No left ventricular hypertrophy. Right Ventricle * The right ventricle is not well visualized. * The right ventricle is grossly normal size. Atria * The left atrial size is normal. * Right atrium not well visualized. * Interatrial septum is not well visualized. Mitral Valve * The mitral valve is not well visualized. * There is no mitral valve stenosis. * There is trace mitral regurgitation. Tricuspid Valve * The tricuspid valve is not well visualized. * There is no tricuspid stenosis. * Significant tricuspid regurgitation is absent. Aortic Valve * The aortic valve is not well visualized. * No hemodynamically significant valvular aortic stenosis. * There is no significant aortic regurgitation. Pulmonic Valve * The pulmonary valve is inadequately visualized, but the Doppler data is adequate for interpretation. * There is no pulmonic valvular stenosis. * There is no significant pulmonary regurgitation. Great Vessels * The aortic root is normal size. * Ascending aorta of normal dimension Pericardium/Pleural * There is no pericardial effusion. Great Vessels * Top normal IVC size with reduced inspiratory collapse. MMode 2D Measurements and Calculations IVSd 1.1 cm LVIDd 4.4 cm LVIDs 2.9 cm LVPWd 0.85 cm IVS/LVPW 1.3 FS 35.7 % EDV(Teich) 89.4 ml ESV(Teich) 31.0 ml EF(Teich) 65.4 % EDV(cubed) 87.4 ml ESV(cubed) 23.3 ml EF(cubed) 73.4 % LV mass(C)d 146.2 grams LV mass(C)dI 72.0 grams/m\S\2 SV(Teich) 58.5 ml SI(Teich) 28.8 ml/m\S\2 SV(cubed) 64.1 ml SI(cubed) 31.5 ml/m\S\2 Ao root diam 3.0 cm Ao root area 7.1 cm\S\2 ACS 2.1 cm asc Aorta Diam 2.5 cm LVAd ap4 29.7 cm\S\2 LVLd ap4 7.8 cm EDV(MOD-sp4) 94.3 ml EDV(sp4-el) 96.4 ml LVAs ap4 14.1 cm\S\2 LVLs ap4 6.0 cm ESV(MOD-sp4) 27.3 ml ESV(sp4-el) 27.9 ml EF(MOD-sp4) 71.1 % EF(sp4-el) 71.0 % LVAd ap2 19.3 cm\S\2 LVLd ap2 7.0 cm EDV(MOD-sp2) 43.4 ml EDV(sp2-el) 45.3 ml LVAs ap2 9.2 cm\S\2 LVLs ap2 5.9 cm ESV(MOD-sp2) 11.8 ml ESV(sp2-el) 12.2 ml EF(MOD-sp2) 72.9 % EF(sp2-el) 73.1 % LVLd %diff -11.14 % EDV(MOD-bp) 66.3 ml LVLs %diff -3.09 % ESV(MOD-bp) 18.1 ml EF(MOD-bp) 72.7 % SV(MOD-sp4) 67.0 ml SI(MOD-sp4) 33.0 ml/m\S\2 SV(MOD-sp2) 31.6 ml SI(MOD-sp2) 15.6 ml/m\S\2 SV(MOD-bp) 48.2 ml SI(MOD-bp) 23.7 ml/m\S\2 SV(sp4-el) 68.5 ml SI(sp4-el) 33.7 ml/m\S\2 SV(sp2-el) 33.1 ml SI(sp2-el) 16.3 ml/m\S\2 Doppler Measurements and Calculations MV E max gerardo 122.4 cm/sec MV A max gerardo 85.9 cm/sec MV E/A 1.4 MV dec time 0.22 sec Ao V2 max 145.2 cm/sec Ao max PG 8.4 mmHg Ao max PG (full) 4.6 mmHg LV V1 max PG 3.8 mmHg LV V1 max 97.7 cm/sec PA V2 max 160.2 cm/sec PA max PG 10.3 mmHg TR max gerardo 285.0 cm/sec RVSP(TR) 40.5 mmHg RAP systole 8.0 mmHg
--- NOTE | 2016-11-17 14:26 | Hospitalist Progress Note ---
Hospitalist Progress Note Date of Service Nov 17, 2016. (Cris Vasquez PA-C) Subjective Pt evaluation today including: conversation w/ patient, physical exam, chart review, lab review, review of studies Pain: None PO Intake: Good Voiding: arango catheter in place The patient was seen and examined this morning. Pt reports she is still coughing , and feels slightly short of breath. He reports bringing up some mucus overnight and have a blood tinge spot in one of her sputum samples. She has not required supplemental O2 overnight. She is taking Tessalon Perles and guaifenesin which seemed to be working for her. Patient had an echocardiogram completed this morning. Denies any other acute complaints Additional Comments: Constitutional: No fever, sweats or chills Eyes: No diplopia, no worsening or blurred vision ENT: normal hearing, no trouble swallowing Respiratory: See HPI. Cardiovascular: No chest pain, tightness or palpitations Abdomen: No pain, nausea, vomiting, diarrhea or constipation, + bowel are slower today but moved last evening. Musculoskeletal: No joint pain, no peripheral edema. Neurologic: No weakness, numbness/tingling, or balance problems Psychiatric: No anxiety or depression Skin: No rash or itch (Cris Vasquez PA-C) Objective Vital Signs Date Time Temp Pulse Resp B/P (MAP) Pulse Ox O2 Delivery O2 Flow Rate FiO2 11/17/16 08:45 94 Room Air 11/17/16 08:00 Room Air 11/17/16 07:55 36.5 93 20 117/75 (89) 94 Room Air 11/17/16 07:10 79 16 92 Room Air 11/17/16 01:47 96 16 92 Room Air 11/17/16 00:15 Room Air 11/16/16 23:05 36.8 96 16 106/67 (80) 92 Room Air 11/16/16 19:05 110 16 96 Room Air 11/16/16 17:04 Room Air 11/16/16 15:00 36.6 79 18 100/65 (77) 93 Room Air (Cris Vasquez PA-C) Physical Exam Notes: General Appearance: WD/WN, NAD, + obese Eyes: PERRL, EOMI ENT: hearing grossly normal, pharynx normal Neck: supple, no JVD Respiratory/Chest: chest non-tender, no respiratory distress, no accessory muscle use, + pertinent finding (On room air, Breath sounds are clear throughout , + cough, no wheezing, rales or rhonchi, + accessed mediport in R chest wall) Cardiovascular: regular rhythm,slightly tachycardic with SE=231, no murmur, Abdomen: normal bowel sounds, non tender, soft, + pertinent finding (Arango cath in place draining clear yellow urine. ) Extremities: non-tender, + pertinent finding (Bilateral BKA, stumps intact with waffle boots underneath. R stump with small scabbed over, healing wound, ~ 0.5 cm in diameter ) Neurologic/Psychiatric: alert, normal mood/affect, oriented x 3 Skin: normal color, warm/dry (Cris Vasquez, WILLIAMS) Laboratory Results Last 24 Hours Test 11/17/16 05:30 White Blood Count 10.73 K/uL Red Blood Count 4.00 M/uL Hemoglobin 11.8 g/dL Hematocrit 38.1 % Mean Corpuscular Volume 95.3 fL Mean Corpuscular Hemoglobin 29.5 pg Mean Corpuscular Hemoglobin Concent 31.0 g/dl RDW Standard Deviation 51.8 fL RDW Coefficient of Variation 14.9 % Platelet Count 203 K/uL Mean Platelet Volume 10.2 fL Vitamin B12 Level > 2000 pg/mL Folate 9.69 ng/mL (Cris Vasquez, JOC) Assessment and Plan 31 y/o F w PMHx Spina bifida, PATHOLOGY TRANSCRIPTIONIST shunt at - 12 revisions, 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 Pt presents with progressive SOB a persistent dry cough and wheezing which is not responding well to her home inhalers. She had multiple respiratory treatments in the ER to minimal effect and continues to exhibit poor air movement. R Pulmonary embolus, age indeterminate - CTA completed d/t elevated d-dimer with pt's hx of being on Lo-estrin control and poor mobility status. Pt is on lo-estrin for excessive bleeding with menstrual periods, where she was having heavy periods for almost 3 weeks. She previously had a Mirena IUD x 5 years, and then needed it replaced. Attempt to replace this was done 3x by Dr. Valladares whom the pt follows in clinic, however was unsuccessful, therefore she was started on oral contraceptive for this. She has an outpt appointment scheduled on December 13. - Stop lo-estrin : discussed with Dr. Valladares, will plan to decide on other forms of control at f/u appt. in the meantime no other form of control or menorrhagia control needed. - Continue xarelto Status asthmaticus - Pt placed on scheduled ipatroprium albuterol, IV Solumedrol 60 mg decreased to Q8H, likely can transition to a short prednisone taper - Zithromax stopped since uCx positive, afebrile and her CXR is not consistent with acute PNM. - Weaned off supplemental O2, clear breath sounds today - Encourage incentive spirometry, cont Mucinex and tessalon pearls Klebsiella pneumonia UTI - UCx with + klebsiella pneumonia - will start cipro 500 mg BID x 6 more days, and d/c azithromycin - She has a history of suprapubic catheter placement with recurrent UTIs and recent resistant E. coli and Klebsiella infections. Pt recently completed a course of Diflucan for yeast in her urine. - Leukocytosis is 14 K today, also likely partially reactive with PE as noted above. Bipolar disease with psychosis - recent admission with hallucinations - stable - cont current, extensive psychoactive regimen with lithium 450 mg QAM and 600 mg QPM, topirimate 75 mg BID. - Abilify has been titrated down and now stopped per pt. Her psychiatrist has started her on Risperdol 1 mg BID so will order this for inpatient. DVT ppx: Xarelto CODE STATUS: FULL CODE Disposition: From home, discharge when medically stable, likely within 24 hrs (Cris Vasquez PA-C) [place] Physician Supervision Note: I interviewed and examined the patient. Discussed with Maria A Vasquez PAC and agree with findings and plan as documented in the note. Any exceptions or clarifications are listed here: None Pt initially thought to have asthma exacerbation, CT scan confirms right sided PE, associated with estrogen therapy vitals stable not hypoxic, pt states she just doesnt feel good, increased coughing lungs wheezing did resolve, some rhonchi, planning on xarelto after discharge asthma exacerbation, pulmonary discovered PE on CTA, reduced steroids to try to help with anxiety, limit nebs to prn to also help (George Powell M.D.)
[2016-11-17] MEDS ORDERED: DIPH25CA5 PO (14:33)
[2016-11-17] MEDS ORDERED: CPR500 PO (14:33)
[2016-11-17] MEDS ORDERED: BENZ100C7 PO (14:33)
[2016-11-17] MEDS ORDERED: XRL15 PO (14:33)
[2016-11-17] MEDS ORDERED: GUAI1TAB68 PO (14:33)
[2016-11-17] MEDS ORDERED: RISP1TAB3 PO (14:35)
--- NOTE | 2016-11-17 14:37 | Discharge Instructions ---
Discharge Instructions Date of Service Nov 17, 2016. Admission Reason for Admission: Asthma Exacerbation Discharge Discharge Diagnosis / Problem: RLL pulmonary embolism and asthma exacerbation Discharge Goals Goal(s): Decrease discomfort, Improve function, Increase independence, Improve disease control Activity Recommendations Activity Limitations: resume your previous activity Lifting Limitations: no more than 25 pounds Exercise/Sports Limitations: rest today, gradually increase as tolerated Shower/Bathe: no limitations Driving or Machine Use: DO NOT DRIVE . Instructions / Follow-Up Instructions / Follow-Up You were admitted to [facility] with acute asthma exacerbation and diagnosed with acute asthma exacerbation and a Right lower lobe pulmonary embolism (blood clot) . - During your stay here you were treated with intravenous steroids, breathing treatments, antibiotics and then started on a blood thinner, xarelto for the blood clot. . Imaging studies which were completed include: Echocardiogram which was negative for any acute findings and a normally functioning heart. A chest x ray was done at time of admission and repeated which showed improvement. Continue taking all medications as prescribed Follow up: Follow up with your PCP within 1-2 weeks - please discuss xarelto and the need for dosage adjustment in 3 weeks, and to determine the length of time your on a blood thinner. Follow up with [facility] on as already scheduled. Current Hospital Diet Patient's current hospital diet: Regular Diet Discharge Diet Recommended Diet: Regular Diet Procedures Procedures Performed: Echocardiogram: Normal findings on 11/17/16 Pending Studies Studies pending at discharge: no Medical Emergencies . Who to Call and When: Medical Emergencies: If at any time you feel your situation is an emergency, please call 911 immediately. . Non-Emergent Contact Non-Emergency issues call your: Primary Care Provider Call Non-Emergent contact if: you have a fever, temperature is above 100.5, your pain is not controlled, you have any medication questions feel more short of breath, develope worsening cough, chest pain, palpitations, or if you have other concerns with your health. . Past History Medical & Surgical History: (1) Pulmonary embolism (2) Asthma exacerbation (3) Spina bifida (4) GERD (gastroesophageal reflux disease) (5) Anxiety (6) Depression (7) Bipolar 1 disorder . "Provider Documentation" section prepared by Maria A Vasquez. . VTE Core Measure Inpt VTE Proph given/why not?: Other Anticoagulation
--- NOTE | 2016-11-17 14:38 | DIAGNOSTIC IMAGING REPORT ---
CHEST ONE VIEW PORTABLE CLINICAL HISTORY: Assess RLL dyspnea COMPARISON STUDY: 11/13/2016 FINDINGS: Improved pulmonary aeration. Small residual parenchymal infiltrate medial left as well as right base. Diaphragms smooth. Costophrenic angles are sharp. IMPRESSION: Improved aeration both lung bases with minimal residual atelectatic and/or infiltrative change. Electronically signed by: Werner Mcmahon M.D. 11/17/2016 2:37 PM Dictated Date/Time: 11/17/2016 2:34 PM
[2016-11-17] MEDS: LITHIUM CARBONATE 300 MG TAB PO SCH (20:39)
[2016-11-17] MEDS: NORTRIPTYLINE HCL 25 MG CAP PO SCH (20:42)
[2016-11-17] MEDS: RANITIDINE HCL 150 MG TAB PO SCH (20:43)
[2016-11-17] MEDS ORDERED: IPRATROPIUM BROMIDE NEB SOLN 0.02% 2.5 ML VIAL INH PRN (21:00)
[2016-11-17] MEDS: METHYLPREDNISOLONE IV 40 MG in SYRINGE 0 ML IV SCH (21:39)
[2016-11-18] MEDS: GUAIFENESIN 200 MG TAB PO SCH ×4 (00:07→12:17)
[2016-11-18 00:15] VITALS: O2SAT 94
[2016-11-18] MEDS: LEVOTHYROXINE 25 MCG TAB PO SCH (05:31)
[2016-11-18 05:36] LABS: HEMATOCRIT 41.2 % (37-47); MEAN CELL VOLUME 95.4 fL (80-100); MEAN CORPUSCULAR HEMOGLOBIN 29.2 pg (25-34); MEAN CORPUSCULAR HGB CONC 30.6 g/dl (32-36); MEAN PLATELET VOLUME 10.1 fL (7.4-10.4); PLATELET COUNT 231 K/uL (130-400); RED BLOOD COUNT 4.32 M/uL (4.2-5.4); WHITE BLOOD COUNT 16.22 K/uL (4.8-10.8)
[2016-11-18 06:08] LABS: CREATININE 0.75 mg/dl (0.60-1.20)
[2016-11-18 07:36] VITALS: BP 108/71; PULSE 80; TEMP 36.6; O2SAT 96
[2016-11-18] MEDS: LINZESS~ORDER AWAITING ACTION SCH (07:54)
[2016-11-18] MEDS: FLUTICASONE/SALMETEROL (ADVAIR) 500/50 INH 14 PUFF INH SCH (07:56)
[2016-11-18] MEDS: ARIPIprazole TAB 5 MG TAB PO SCH (09:00)
[2016-11-18] MEDS: CIPROFLOXACIN 500 MG TAB PO SCH (09:03)
[2016-11-18] MEDS: LITHIUM CARBONATE 450 MG TABCR PO SCH (09:03)
[2016-11-18] MEDS: PANTOprazole SOD 40 MG TAB PO SCH (09:03)
[2016-11-18] MEDS: CLONAZEPAM 0.5 MG TAB PO SCH (09:03)
[2016-11-18] MEDS: HYOSCYAMINE SULFATE 0.125 MG SL TAB PO SCH ×2 (09:04→12:49)
[2016-11-18] MEDS: RISPERIDONE 1 MG TAB PO SCH (09:04)
[2016-11-18] MEDS: BENZTROPINE MESYLATE 1 MG TAB PO SCH (09:04)
[2016-11-18] MEDS: CHOLECALCIFEROL 1000 INTER.UNIT TAB PO SCH (09:04)
[2016-11-18] MEDS: RIVAROXABAN TAB 15 MG TAB PO SCH (09:04)
[2016-11-18] MEDS: CYANOCOBALAMIN 500 MCG TAB (VIT B-12) PO SCH (09:05)
[2016-11-18] MEDS: DOCUSATE SODIUM 100 MG CAP PO SCH (09:05)
[2016-11-18] MEDS: TOPIRAMATE 25 MG TAB PO SCH (09:05)
[2016-11-18] MEDS: FERROUS SULFATE 325 MG TAB PO SCH (09:05)
[2016-11-18] MEDS: GABAPENTIN 300 MG CAP PO SCH (09:05)
[2016-11-18] MEDS: SENNA 8.6 MG TAB PO SCH (09:05)
[2016-11-18] MEDS: BENZONATATE 100MG CAP PO SCH (09:05)
[2016-11-18] MEDS: METHYLPREDNISOLONE IV 40 MG in SYRINGE 0 ML IV SCH (09:06)
[2016-11-18] MEDS: MICONAZOLE NITRATE POWDER 43 GM EXT PRN (09:06)
[2016-11-18] MEDS ORDERED: XRL10 PO (10:36)
[2016-11-18] MEDS ORDERED: CPR500 PO (10:36)
[2016-11-18 11:55] VITALS: BP 108/71; PULSE 80; TEMP 36.6; O2SAT 96
[2016-11-18] MEDS: hydrOXYzine HCL 25 MG TAB PO SCH (12:49)
--- NOTE | 2016-11-18 16:32 | Discharge Summary ---
Discharge Summary Date of Service Nov 18, 2016. Discharge Summary Admission Date: Nov 14, 2016 at 00:07 Discharge Date: Nov 18, 2016 Discharge Disposition: Home Principal Diagnosis: pulmonary embolism while on hormone (estrogen) therapy Procedures: did have drug resistant Klebsiella uti Medication Reconciliation New Medications: Ciprofloxacin (Ciprofloxacin HCl) 500 Mg Tab 500 MG PO BID, #8 Rivaroxaban (Xarelto) 10 Mg Tab 2 TAB PO DAILY for 30 Days, #60 TAB begin after the 15 mg bid 3 week dosing may substitute 20 mg pill if available Benzonatate (Benzonatate) 100 Mg Cap 100 MG PO TID for 15 Days, #45 CAP Diphenhydramine Hcl (Benadryl) 25 Mg Cap 25 MG PO BID@0830,2030 for 6 Days, #12 CAP Take 30 minutes prior to Cipro Guaifenesin (Organ-I Nr) 200 Mg Tab 200 MG PO Q4H for 15 Days, #60 TAB Rivaroxaban (Xarelto) 15 Mg Tab 15 MG PO BID for 20 Days, #40 TAB Continued Medications: Acetaminophen (Acetaminophen Extra Stren) 500 Mg Tab 500-1000 MG PO Q6H PRN for Pain Albuterol Sulfate (Proair Respiclick) 108 Mcg/Act Aer 2 PUFFS INH TID Benztropine Mesylate (Benztropine Mesylate) 1 Mg Tab 1 MG PO BID Cholecalciferol (Vitamin D) 2,000 Unit Cap 2000 INTER.UNIT PO DAILY Clonazepam (Klonopin) 0.5 Mg Tab 0.5 MG PO BID, TAB Cyanocobalamin (Vitamin B-12) 500 Mcg Tab 500 MG PO BID Dihydroergotamine Mesylate (Migranal) 4 Mg/Ml Lasara 4 MG NA UD PRN for Migraine Docusate Sodium (Dulcolax Stool Softener) 100 Mg Cap 100 MG PO BID for 30 Days Ferrous Sulfate (Kp Ferrous Sulfate) 325 Mg Tab 1 TAB PO BIDM for 30 Days, #60 TAB 3 Refills Fluticasone Prop/Salmeterol (Advair Diskus 500/50 60 Dose) 1 Ea Aerp 1 PUFF INH BID, INHALER Gabapentin (Gabapentin) 300 Mg Cap 300 MG PO TID Hydroxyzine Hcl (Atarax) 25 Mg Tab 25 MG PO QD@1200, TAB Hyoscyamine Sulfate (Levsin) 0.125 Mg Tab 0.125 MG PO QID Indomethacin (Indocin) 25 Mg Cap 25 MG PO TID PRN for Headache, CAP Ketorolac Tromethamine (Ketorolac Tromethamine) 10 Mg Tab 10-20 MG PO UD PRN for Headache TAKE 1 TO 2 TABLETS TWICE A DAY NEEDED FOR HEADACHE/SEVERE PAIN, MAXIMUM 2 DOSES 3 DAYS PER WEEK Levothyroxine Sodium (Levothyroxine Sodium) 25 Mcg Tab 25 MG PO DAILY, #30 Linaclotide (Linzess) 290 Mcg Cap 290 MCG PO QAM 30 MINUTES BEFORE BREAKFAST [place] Carbonate ([place] Carbonate ER) 450 Mg Tabcr 450 MG PO QAM for 30 Days, #30 [place] Carbonate ([place] Carbonate) 600 Mg Cap 600 MG PO QPM, CAP Meclizine Hcl (Meclizine Hcl) 25 Mg Tab 1 TAB PO TID PRN for Dizziness or Vertigo for 10 Days, #30 TAB Multiple Vitamin (Multivitamin) 1 Tab Tab 1 TAB PO DAILY, TAB Nortriptyline Hcl (Pamelor) 75 Mg Cap 75 MG PO HS, CAP Nortriptyline Hcl (Pamelor) 25 Mg Cap 25 MG PO HS, #30 Nystatin (Topical) (Nystop) 100,000 Unit/Gm Pow 1 APPL TOP UD PRN for SKIN IMPAIRMENT Ondansetron (Ondansetron HCl) 4 Mg Tab 4 MG PO DAILY PRN for Nausea Pantoprazole (Pantoprazole Sodium) 40 Mg Tab 40 MG PO QAM Probiotic Product (Probiotic) 1 Tab Tab 1 TAB PO BID Ranitidine (Zantac) 150 Mg Tab 150 MG PO HS, TAB Risperidone (Risperdal) 1 Mg Tab 1 TAB PO BID for 30 Days, #30 TAB Sennosides (Senna Lax) 8.6 Mg Tab 8.6 MG PO DAILY for 30 Days Topiramate (Topamax ) 25 Mg Tab 75 MG PO BID, TAB Tramadol (Ultram) 50 Mg Tab 50 MG PO Q4H PRN for Pain, TAB Wound Dressings (Hydrofera Blue Foam Dress) 1 Pad Pad 1 APPLN TOP DAILY 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 Discontinued Medications: Aripiprazole (Abilify) 30 Mg Tab 1 TAB PO DAILY CURRENTLY TAPERING DOWN DOSE 11/13/16 Ethinyl Estradiol/Norethindr (Loestrin Fe 1.11/01) 1 Tab Tab 1 TAB PO DAILY for 28 Days, #28 TAB 11 Refills Discharge Exam Review of Systems: Constitutional: No fever, No chills, No sweats Respiratory: + cough, + dyspnea on exertion, No sputum, No wheezing, No shortness of breath, No dyspnea at rest Cardiovascular: No chest pain, No orthopnea Physical Exam: General Appearance: WD/WN, no apparent distress Neck: supple, no JVD Respiratory/Chest: lungs clear, + decreased breath sounds, + accessory muscle use Cardiovascular: regular rate, rhythm, no murmur Abdomen / GI: normal bowel sounds, non tender, soft Hospital Course 31 y/o F w PMHx Spina bifida, 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 Pt presents with progressive SOB a persistent dry cough and wheezing initially felt to be asthma, but found to be PE R Pulmonary embolus, age indeterminate - CTA completed d/t elevated d-dimer with pt's hx of being on Lo-estrin control and poor mobility status. Lo-estrin was stopped and She has an outpt appointment with gyne scheduled on December 13. - Continue xarelto Status asthmaticus likely not the issue once PE was discovered - Weaned off supplemental O2, clear breath sounds Klebsiella pneumonia UTI - UCx with + klebsiella pneumonia - cipro 500 mg BID given sensitivities and allergies, will need to take with benadryl Bipolar disease with psychosis - recent admission with hallucinations lithium 450 mg QAM and 600 mg QPM, topirimate 75 mg BID. - Abilify has been titrated down and now stopped per pt. Her psychiatrist has started her on Risperdol 1 mg BID DVT ppx: Xarelto CODE STATUS: FULL CODE Total Time Spent: Greater than 30 minutes This includes examination of the patient, discharge planning, medication reconciliation, and communication with other providers. Discharge Instructions Please refer to the electronic Patient Visit Report (Discharge Instructions) for additional information.
[2016-11-23 13:02] LABS: PROTEIN C ACTIVITY** TC 1777X >200 % (70-180); PROTEIN S ACT(FUNCT)**1779X 83 % (60-140)
[2016-12-28] MEDS ORDERED: DFL100 PO (10:32)
[2017-01-11] MEDS ORDERED: LEVO25TA5 PO (13:23)
[2017-01-11] MEDS ORDERED: BENZ100C84 PO (16:58)
[2017-01-11] MEDS ORDERED: XPNINS NEB (17:08)
[2017-01-14] MEDS ORDERED: [UNRECOGNIZED DRUG - CODE] IART (10:53)
[2017-01-14] MEDS ORDERED: RIVA1.5T PO (12:41)
[2017-02-10] MEDS ORDERED: PANT40TA2 PO (16:40)
[2017-02-14] MEDS ORDERED: MTRG45 TOP (15:35)
[2017-02-14] MEDS ORDERED: XRL20 PO (15:35)
[2017-02-14] MEDS ORDERED: PANT40TA2 PO (15:35)
[2017-02-14] MEDS ORDERED: [UNRECOGNIZED DRUG - CODE] IV (15:35)
[2017-02-14] MEDS ORDERED: POTA10CA28 PO (16:29)
[2017-02-14] MEDS ORDERED: MGNO400 PO (16:29)
[2017-03-09] MEDS ORDERED: DOXYCYLINE PO (12:59)
[2017-03-09] MEDS ORDERED: TOBRAMYCIN PO (12:59)
[2017-03-15] MEDS ORDERED: ADVIN50/60 INH (13:04)
[2017-03-15] MEDS ORDERED: CHOL200010 PO (13:04)
[2017-03-15] MEDS ORDERED: NRT/25 PO (13:23)
[2017-03-15] MEDS ORDERED: MGRSP NAE (13:52)
[2017-03-15] MEDS ORDERED: MECL1TAB42 PO (13:52)
[2017-03-15] MEDS ORDERED: WOUN1PAD EXT (13:52)
[2017-03-15] MEDS ORDERED: VTMB12 PO (15:08)
[2017-03-15] MEDS ORDERED: HYOS1TAB PO (16:40)
[2017-03-15] MEDS ORDERED: LINA1CAP2 PO (16:40)
[2017-03-15] MEDS ORDERED: GABA1CAP4 PO (16:40)
[2017-03-15] MEDS ORDERED: FERR1TAB62 PO (17:26)
[2017-03-15] MEDS ORDERED: SENN1TAB80 PO (17:28)
[2017-03-15] MEDS ORDERED: [UNRECOGNIZED DRUG - CODE] PO (19:25)
[2017-03-15] MEDS ORDERED: BENZ-88 PO (22:29)
[2017-04-05] MEDS ORDERED: TOPI1CAP12 PO (13:18)
[2017-04-10] MEDS ORDERED: GENTAMYCIN PO (12:44)
[2017-04-12] MEDS ORDERED: DAPT500I IV (14:52)
[2017-04-12] MEDS ORDERED: OXYC-57 PO (14:52)
[2017-04-20] MEDS ORDERED: METR-162 PO (14:31)
[2017-04-24] MEDS ORDERED: CEFE2INJ2 (14:58)
[2017-04-24] MEDS ORDERED: ATR25 PO (14:58)
[2017-04-24] MEDS ORDERED: VENL37.593 PO (14:58)
[2017-04-24] MEDS ORDERED: ZOLM1TAB3 PO (14:58)
[2017-04-24] MEDS ORDERED: LEVO75TA PO (14:58)
[2017-04-24] MEDS ORDERED: RISP1TAB68 PO (14:58)
== END 2016-11-18 13:59 | disposition home or self-care (01) | DRG 176 ==
LOC: C.EDB 19:29 → C.MSN 11-14 00:07 → ENRESERV 11-14 01:05
PROVIDERS: ADMIT Internal Medicine; ATTEND Internal Medicine
DX: I26.99 Other pulmonary embolism without acute cor pulmonale (principal); F41.9 Anxiety disorder, unspecified; J98.11 Atelectasis; N39.0 Urinary tract infection, site not specified; F31.9 Bipolar disorder, unspecified; K21.9 Gastro-esophageal reflux disease without esophagitis; K31.84 Gastroparesis; Z86.14 Personal history of Methicillin resistant Staphylococcus aureus infection; Z98.2 Presence of cerebrospinal fluid drainage device; Z89.511 Acquired absence of right leg below knee; Z89.512 Acquired absence of left leg below knee; Q05.9 Spina bifida, unspecified; G43.909 Migraine, unspecified, not intractable, without status migrainosus; B96.1 Klebsiella pneumoniae [K. pneumoniae] as the cause of diseases classified elsewhere; Z79.818 Long term (current) use of other agents affecting estrogen receptors and estrogen levels

== ENCOUNTER → 2016-11-28 | Outpatient (CLI) | payer BC, OTHER ==
[~2016-11-28] MED LIST changes: +ADVIN50/60 INH; +ALBU18002 INH; +ARIP1TAB PO; -ARIP30TA3 PO; +ATR25 PO; +BENZ-88 PO; +BENZ100C7 PO; +BENZ100C84 PO; +CEFE2INJ2; +CHOL200010 PO; +CLON0.5T3 PO; +DAPT500I IV; +DFL100 PO; +DIPH25CA5 PO; -DOCU100C31 PO; +DOXYCYLINE PO; +FERR1TAB62 PO; +FLUC100T4 PO; +GABA1CAP4 PO; +GENTAMYCIN PO; +GUAI1TAB68 PO; +HYDR-3124 PO; +HYOS1TAB PO; +INDO1CAP34 PO; +LEVO25TA5 PO; +LEVO50TA6 PO; +LEVO75TA PO; +LINA1CAP2 PO; +LITH1TAB PO; +LITH600C PO; -LTH300T PO; -MCRK20 PO; +MECL1TAB42 PO; +METR-162 PO; +METR0.7527 TOP; +MGNO400 PO; +MGRSP NAE; +MICO1POW8 TOP; +MISCCAP80 PO; +MRLP17X PO; +MTRCR45 TP; +MTRG45 TOP; +MULTTAB58 PO; +NITR-5 PO; -NORE-38 PO; +NORT75CA PO; +NRT/25 PO; -NYSTCRE11; +ONDA4TAB10 SL; +OXYC-57 PO; +PANT40TA PO; +PANT40TA2 PO; +POTA10CA28 PO; +RISP1TAB3 PO; +RISP1TAB68 PO; +RIVA1.5T PO; +RIVA1TAB4 PO; +RSP1 PO; +RXC5 PO; +SNG10 PO; +TOBRAMYCIN PO; +TOPI1CAP12 PO; +TOPI1CAP3 PO; +TPM25 PO; +ULT50 PO; +VENL37.593 PO; -VNTHFA/IN INH; +VTMB12 PO; +WOUN1PAD EXT; +XPNINS NEB; +XRL10 PO; +XRL15 PO; +XRL20 PO; +ZFRI4 IV; +ZNT/150 PO; +ZOLM1TAB3 PO; +[UNRECOGNIZED DRUG - CODE] IART; +[UNRECOGNIZED DRUG - CODE] IV; +[UNRECOGNIZED DRUG - CODE] IV; +[UNRECOGNIZED DRUG - CODE] IV; +[UNRECOGNIZED DRUG - CODE] PO
[2016-11-28 15:28] LABS: BLOOD UREA NITROGEN 9 mg/dl (7-18); BUN/CREATININE RATIO 11.1 (10-20); CALCIUM 9.2 mg/dl (8.5-10.1); CARBON DIOXIDE 23 mmol/L (21-32); CHLORIDE 111 mmol/L (98-107); CREATININE 0.83 mg/dl (0.60-1.20); GLUCOSE 114 mg/dl (70-99); MAGNESIUM 2.8 mg/dl (1.8-2.4); SODIUM 142 mmol/L (136-145)
== END | disposition home or self-care (01) ==
LOC: C.LABBC 10:47
PROVIDERS: ATTEND Physician Assistant Medical
DX: E87.6 Hypokalemia (principal)

== ENCOUNTER 2016-12-08 15:49 | Emergency (ER) | payer BC, OTHER ==
[~2016-12-08 15:49] MED LIST changes: -ADVIN50/60 INH; -ALBU18002 INH; -ARIP1TAB PO; -ATR25 PO; -BENZ-88 PO; -BENZ100C84 PO; +BND25 PO; -CEFE2INJ2; -CHOL200010 PO; -CLON0.5T3 PO; -DAPT500I IV; -DFL100 PO; -DIPH25CA5 PO; -DOXYCYLINE PO; -FERR1TAB62 PO; -FLUC100T4 PO; -GABA1CAP4 PO; -GENTAMYCIN PO; -HYDR-3124 PO; -HYOS1TAB PO; -INDO1CAP34 PO; -LEVO25TA5 PO; -LEVO50TA6 PO; -LEVO75TA PO; -LINA1CAP2 PO; -LITH1TAB PO; -LITH600C PO; -MECL1TAB42 PO; -METR-162 PO; -METR0.7527 TOP; -MGNO400 PO; -MGRSP NAE; -MICO1POW8 TOP; -MISCCAP80 PO; -MRLP17X PO; -MTRCR45 TP; -MTRG45 TOP; -MULTTAB58 PO; -NITR-5 PO; -NORT75CA PO; -NRT/25 PO; -ONDA4TAB10 SL; -OXYC-57 PO; -PANT40TA PO; -PANT40TA2 PO; -POTA10CA28 PO; -RISP1TAB68 PO; -RIVA1.5T PO; -RIVA1TAB4 PO; -RSP1 PO; -RXC5 PO; -SENN1TAB80 PO; +SENN8.6T13 PO; -SNG10 PO; -TOBRAMYCIN PO; -TOPI1CAP12 PO; -TOPI1CAP3 PO; -TPM25 PO; -ULT50 PO; -VENL37.593 PO; -VST25HP PO; -VTMB12 PO; -WOUN1PAD EXT; -XPNINS NEB; -XRL20 PO; -ZFRI4 IV; -ZNT/150 PO; -ZOLM1TAB3 PO; -[UNRECOGNIZED DRUG - CODE] IART; -[UNRECOGNIZED DRUG - CODE] IV; -[UNRECOGNIZED DRUG - CODE] IV; -[UNRECOGNIZED DRUG - CODE] IV; -[UNRECOGNIZED DRUG - CODE] PO
[2016-12-08 15:55] VITALS: TEMP 36.7; Ht 119.4 cm
[2016-12-08] MEDS ORDERED: LIDOCAINE/EPINEPHRINE 1% 20 ML VIAL ONE (16:01)
--- NOTE | 2016-12-08 16:40 | EMERGENCY ROOM VISIT NOTE ---
ED Visit Note First contact with patient: 15:56 Chief Complaint: "Laceration-patient is on blood thinners". History of Present Illness: This patient is a 31-year-old female who presents to the Emergency Department via private vehicle for evaluation of their left leg laceration. Patient sustained the laceration while in her wheelchair at [facility] 20 minutes prior to arrival, when she accidentally struck a post with the left lower leg. They report a moderate amount of bleeding initially. The patient is unable to feel the affected region secondary to her underlying comorbidities. Patient is currently on Xarelto for pulmonary embolism. There is no discomfort. Patient's Tetanus status is currently up-to-date. Medications: As noted below Allergies: As noted below PMH: As noted below SHx: Patient lives locally with family ROS: All pertinent positive and negative review of systems are appropriately documented in the History of Present Illness. Physical Exam: VITAL SIGNS - Vital signs and nursing notes were reviewed. Stable. GENERAL -31 year old female appearing her stated age who is in no acute distress. Communicates well with provider and answers questions appropriately. SKIN - There is a 9 cm long L-shaped laceration noted at the distal region of the left leg at the location of the previous amputation. The edges gape apart with traction. No foreign bodies appreciated. Upon further examination there are no deep structures including vessel, tendon, or bony structures appreciated. There is no active bleeding noted. MUSCULOSKELETAL -there is minimal range of motion of this region secondary to underlying chronic, rigidity NEUROLOGIC - there is no sensation in this region. VASCULAR - Capillary refill was brisk. ED Course: Patient was seen and evaluated by myself. Risks and benefits of performing primary wound closure versus no repair were discussed with the patient who verbalizes understanding. Verbal consent was obtained prior to performing the procedure. 5 cc of 1% buffered lidocaine was used to anesthetize the 9 cm laceration. The wound was cleansed and prepped in the typical sterile fashion utilizing normal saline and Betadine. The wound was sterilely draped. Once proper anesthetization was established, the wound was further examined and demonstrated a superficial laceration that would require repair without bony involvement. The wound was copiously irrigated with normal saline and Betadine. The wound was closed using 17 simple, 4-0 nylon sutures with the wound edges being well approximated. Patient tolerated the procedure well. No complications were met. The wound was cleansed and dressed with a Bacitracin dressing with Telfa an abdominal pad to collect minimal drainage. Patient educated on worrisome symptoms for return visit to the Emergency Department. Patient discharged to home in good condition. In the evaluation and treatment of this patient following differential diagnoses were entertained: Left lower extremity laceration, uncontrolled bleeding, among others. Problem List Medical Problems: (1) Anxiety Status: Chronic (2) Bipolar 1 disorder Status: Chronic (3) Depression Status: Chronic (4) Gastroparesis Status: Chronic (5) GERD (gastroesophageal reflux disease) Status: Chronic (6) Hydrocephalus Status: Chronic (7) MRSA (methicillin resistant Staphylococcus aureus) Status: Resolved (8) Osteomyelitis Status: Resolved (9) Spina bifida Permanent Comment: Status: Chronic Current/Historical Medications Scheduled Aripiprazole (Aripiprazole), 30 MG PO DAILY Benztropine Mesylate (Benztropine Mesylate), 1 MG PO BID Cholecalciferol (Vitamin D), 2,000 INTER.UNIT PO DAILY Clonazepam (Klonopin), 0.5 MG PO BID Cyanocobalamin (Vitamin B-12), 500 MCG PO DAILY Ferrous Sulfate (Ferrous Sulfate), 325 MG PO BID Fluticasone Prop/Salmeterol (Advair Diskus 500/50 60 Dose), 1 PUFF INH BID Gabapentin (Gabapentin), 300 MG PO TID Hydroxyzine Hcl (Atarax), 25 MG PO QD@1200 Hyoscyamine Sulfate (Levsin), 0.125 MG PO QID Levothyroxine Sodium (Levothyroxine Sodium), 25 MCG PO DAILY Linaclotide (Linzess), 290 MCG PO QAM Hallett Carbonate (Hallett Carbonate), 600 MG PO QPM Hallett Carbonate Er (Lithobid Ext Rel), 450 MG PO QAM Montelukast Sod (Montelukast Sodium), 10 MG PO HS Multiple Vitamin (Multivitamin), 1 TAB PO DAILY Nortriptyline Hcl (Pamelor), 75 MG PO HS Nortriptyline Hcl (Pamelor), 25 MG PO HS Pantoprazole (Pantoprazole Sodium), 40 MG PO QAM Ranitidine Hcl (Zantac), 150 MG PO HS Risperidone (Risperidone), 1 MG PO QAM Risperidone (Risperdal), 2 MG PO QPM Rivaroxaban (Xarelto), 20 MG PO UD Rivaroxaban (Xarelto), 15 MG PO BID Sennosides (Senna Lax), 8.6 MG PO DAILY Wound Dressings (Hydrofera Blue Foam Dress), 1 EA EXT UD Scheduled PRN Albuterol Sulfate (Proair Respiclick), 2 PUFFS INH Q4-6HRS PRN for SOB/Wheezing Benzonatate (Tessalon Perles), 100 MG PO TID PRN for Cough Dihydroergotamine Mesylate (Migranal), 1 SPRAY EDIE UD PRN for Migraine Docusate Sodium (Dulcolax Stool Softener), 100 MG PO BID PRN for Constipation Hydroxyzine HCl (Hydroxyzine Pamoate), 25 MG PO Q8 PRN for Anxiety Indomethacin (Indomethacin), 25 MG PO TID PRN for Headache Levalbuterol (Levalbuterol HCl), 3 ML NEB Q6-8HRS PRN for Shortness of Breath Meclizine Hcl (Meclizine Hcl), 25 MG PO TID PRN for Dizziness or Vertigo Miconazole Nitrate (Topical) (Miconazole Nitrate), 1 APPLN TOP TID PRN for Rash Ondasetron Odt (Zofran Odt), 4 MG SL Q8 PRN for Nausea Topiramate (Topiramate), 75 MG PO BID PRN for Headache Tramadol HCl (Tramadol HCl), 50 MG PO TID PRN for Pain Allergies Coded Allergies: Adhesives (Verified Allergy, Intermediate, TAPE- HIVES, 10/20/16) Ceftriaxone (Verified Allergy, Intermediate, rash, 10/20/16) Chlorhexidine (Verified Allergy, Intermediate, RASH, 10/20/16) Ciprofloxacin (Verified Allergy, Intermediate, hives, 10/20/16) Latex (Verified Allergy, Intermediate, hives, 09/29/16) Levofloxacin (Verified Allergy, Intermediate, rash, 10/20/16) Linezolid (Verified Allergy, Intermediate, rash, 10/20/16) Piperacillin (Verified Allergy, Intermediate, SEVERE RASH, HIVES, 09/29/16) Tazobactam (Verified Allergy, Intermediate, SEVERE RASH, HIVES, 10/20/16) Vancomycin (Verified Allergy, Intermediate, rash, 10/20/16) Tobramycin (Verified Allergy, Mild, MILD RASH ON ARM, RED FACE, 10/20/16) IMPROVED AFTER BENADRYL, TAKING REST OF DOSE Amikacin (Verified Allergy, Unknown, PER DR ROBINS,RXN WAS TO ZOSYN NOT AMKrash;hives, 10/20/16) Sulfamethoxazole w/Trimethoprim (Verified Allergy, Unknown, Hives, 10/20/16 ) Can be pretreated with 10mg Zytrec 45 min prior to admin Vital Signs Date Time Temp Pulse Resp B/P (MAP) Pulse Ox O2 Delivery O2 Flow Rate FiO2 12/08/16 16:52 100 18 118/80 97 12/08/16 15:55 36.7 112 18 122/78 96 Departure Information Impression Primary Impression: Laceration Dispostion Home / Self-Care Condition GOOD Referrals No Doctor, Assigned (PCP) Patient Instructions [facility] Additional Instructions Discharge Instructions: You have received 17 sutures on your left leg. These sutures are NOT dissolvable and WILL need to be removed by a health care provider in 12-14 days. You can return to the Emergency Department or contact your Primary Care Provider to have the sutures removed. Proper wound care is essential for adequate wound healing and infection prevention. You can shower and clean the wound with soap and water. Do not scour over the wound, pat dry with a towel. Do not submerse the wound (i.e. bathe or dish wash) until the sutures have been removed. You can use an antibiotic ointment with a dressing over the wound for the next 3-4 days. After this time you may leave the wound dry and open to the air. If crust develops over the wound you can use a Q-tip to apply a 1:1 peroxide:water solution to clean the wound. Look for signs of infection of the wound including: increased pain, swelling, foul discharge, streaking, or increased temperature. If any of these are noticed you should return to the Emergency Department for further assessment and treatment. As with any laceration you may have received nerve damage to the surrounding tissues. This damage may or may not be permanent. You should keep the area covered with sunscreen for the first 6 months to 1 year when at risk for exposure to help minimize scarring. Please follow-up with the wound care center on your scheduled appointment. If bleeding persists please return immediately. Please change the bandage once daily. Please do not leave the bacitracin on there for more than just a few days. If the bacitracin or any creams on the area for 2 long it will breakdown in the skin. You may then use a dry dressing on the region until the stitches are removed. Return to the emergency department if your symptoms worsen despite treatment course outlined above.
[2016-12-08 16:52] VITALS: BP 118/80; PULSE 100; O2SAT 97
[2016-12-08] MEDS ORDERED: VST25HP PO (16:58)
[2016-12-08] MEDS ORDERED: RISP1TAB68 PO (16:58)
[2016-12-08] MEDS ORDERED: TPM25 PO (17:08)
[2016-12-08] MEDS ORDERED: ARIP1TAB PO (17:08)
[2016-12-08] MEDS ORDERED: XRL20 PO (17:26)
[2016-12-08] MEDS ORDERED: RIVA1.5T PO (17:32)
[2016-12-08] MEDS ORDERED: MICO1POW8 TOP (17:35)
[2016-12-08] MEDS ORDERED: HYDR-3124 PO (18:36)
[2016-12-28] MEDS ORDERED: DFL100 PO (10:32)
[2017-01-11] MEDS ORDERED: LEVO25TA5 PO (13:23)
[2017-01-11] MEDS ORDERED: BENZ100C84 PO (16:58)
[2017-01-11] MEDS ORDERED: XPNINS NEB (17:08)
[2017-01-14] MEDS ORDERED: [UNRECOGNIZED DRUG - CODE] IART (10:53)
[2017-01-14] MEDS ORDERED: RIVA1.5T PO (12:41)
[2017-02-10] MEDS ORDERED: PRT/40 PO (16:40)
[2017-02-14] MEDS ORDERED: MTRG45 TOP (15:35)
[2017-02-14] MEDS ORDERED: PRT/40 PO (15:35)
[2017-02-14] MEDS ORDERED: XRL20 PO (15:35)
[2017-02-14] MEDS ORDERED: [UNRECOGNIZED DRUG - CODE] IV (15:35)
[2017-02-14] MEDS ORDERED: POTA10CA28 PO (16:29)
[2017-02-14] MEDS ORDERED: MGNO400 PO (16:29)
[2017-03-09] MEDS ORDERED: TOBRAMYCIN PO (12:59)
[2017-03-09] MEDS ORDERED: DOXYCYLINE PO (12:59)
[2017-03-15] MEDS ORDERED: CHOL200010 PO (13:04)
[2017-03-15] MEDS ORDERED: ADVIN50/60 INH (13:04)
[2017-03-15] MEDS ORDERED: NRT/25 PO (13:23)
[2017-03-15] MEDS ORDERED: MECL1TAB42 PO (13:52)
[2017-03-15] MEDS ORDERED: WOUN1PAD EXT (13:52)
[2017-03-15] MEDS ORDERED: MGRSP NAE (13:52)
[2017-03-15] MEDS ORDERED: VTMB12 PO (15:08)
[2017-03-15] MEDS ORDERED: GABA1CAP4 PO (16:40)
[2017-03-15] MEDS ORDERED: HYOS1TAB PO (16:40)
[2017-03-15] MEDS ORDERED: LINA1CAP2 PO (16:40)
== END 2016-12-08 16:54 | disposition home or self-care (01) ==
LOC: C.EDB 15:50 → C.EDD 16:54
DX: S81.812A Laceration without foreign body, left lower leg, initial encounter (principal); W22.8XXA Striking against or struck by other objects, initial encounter; K21.9 Gastro-esophageal reflux disease without esophagitis; F31.9 Bipolar disorder, unspecified; F41.9 Anxiety disorder, unspecified; Q05.9 Spina bifida, unspecified; Z86.711 Personal history of pulmonary embolism; Z86.14 Personal history of Methicillin resistant Staphylococcus aureus infection; Z79.01 Long term (current) use of anticoagulants; Z79.899 Other long term (current) drug therapy

== ENCOUNTER → 2016-12-09 | Outpatient (CLI) | payer BC, OTHER ==
[~2016-12-09] MED LIST changes: -ACET-1222 PO; +ADVIN50/60 INH; +ALBU18002 INH; +ARIP1TAB PO; -BENZ100C7 PO; +BENZ100C84 PO; -BND25 PO; +CGN1X PO; +CHOL200010 PO; +CLON0.5T3 PO; +DFL100 PO; +DOXYCYLINE PO; -FERR1TAB13 PO; +FERR325T PO; +FLUC100T4 PO; +GABA1CAP4 PO; -GUAI1TAB68 PO; +HYDR-3124 PO; +HYOS1TAB PO; -INDO-22 PO; +INDO1CAP34 PO; +LEVO25TA5 PO; +LEVO50TA6 PO; +LINA1CAP2 PO; +LITH1TAB PO; +LITH600C PO; -LTHSR450 PO; +MECL1TAB42 PO; +METR0.7527 TOP; +MGNO400 PO; +MGRSP NAE; +MICO1POW8 TOP; +MISCCAP80 PO; +MTRCR45 TP; +MTRG45 TOP; +MULTTAB58 PO; +NITR-5 PO; +NORT75CA PO; +NRT/25 PO; +ONDA4TAB10 SL; -ONDA4TAB9 PO; +PANT40TA PO; +POTA10CA28 PO; -PROB1TAB16 PO; +PRT/40 PO; -RISP1TAB3 PO; +RISP1TAB68 PO; +RIVA1.5T PO; +RIVA1TAB4 PO; +RSP1 PO; +SNG10 PO; +TOBRAMYCIN PO; +TOPI1CAP3 PO; -TOPI25TA99 PO; +TPM25 PO; -TRAM-10 PO; -TRD10 PO; +ULT50 PO; +VST25HP PO; +VTMB12 PO; +WOUN1PAD EXT; +XPNINS NEB; -XRL10 PO; -XRL15 PO; +XRL20 PO; +ZNT/150 PO; -ZNTT/150 PO; +[UNRECOGNIZED DRUG - CODE] IART; +[UNRECOGNIZED DRUG - CODE] IV; +[UNRECOGNIZED DRUG - CODE] IV; +[UNRECOGNIZED DRUG - CODE] PO
[2016-12-09 13:51] LABS: URINE APPEARANCE CLEAR (CLEAR); URINE BILIRUBIN NEG (NEG); URINE COLOR YELLOW; URINE NITRITE POS (NEG); URINE PH 8.5 (4.5-7.5); URINE SPECIFIC GRAVITY 1.013 (1.000-1.030); UROBILINOGEN NEG (NEG)
[2016-12-09 13:59] LABS: MANUAL MICROSCOPIC REQUIRED? NO; REVIEW REQ? NO
== END | disposition home or self-care (01) ==
LOC: C.LABBC 12:07
PROVIDERS: ATTEND Physician Assistant Medical
DX: N31.9 Neuromuscular dysfunction of bladder, unspecified (principal)

== ENCOUNTER 2016-12-14 10:49 | Inpatient (IN) | payer BC, OTHER ==
[~2016-12-14] VITALS: Ht 119.4 cm; Wt 105.0 kg
[~2016-12-14 10:49] MED LIST changes: -DFL100 PO; -DOXYCYLINE PO; -FLUC100T4 PO; -LEVO50TA6 PO; -METR0.7527 TOP; -MGNO400 PO; -MISCCAP80 PO; -MTRCR45 TP; -MTRG45 TOP; -NITR-5 PO; -NYST100010 TOP; -PANT40TA PO; -POTA10CA28 PO; -RIVA1TAB4 PO; -TOBRAMYCIN PO; -TOPI1CAP3 PO; -[UNRECOGNIZED DRUG - CODE] IART; -[UNRECOGNIZED DRUG - CODE] IV; -[UNRECOGNIZED DRUG - CODE] IV; -[UNRECOGNIZED DRUG - CODE] PO
[2016-12-14] MEDS ORDERED: SODIUM CHLORIDE 0.9% 1000ML 1,000 ML IV STA (11:13)
[2016-12-14] MEDS ORDERED: DAPTOmycin IV 625 MG in SODIUM CHLORIDE 0.9% 50ML 50 ML IV STA (11:46)
[2016-12-14] MEDS ORDERED: DEXTROSE 5% IV STA (11:56)
[2016-12-14] MEDS ORDERED: TAZOBACTAM IV STA (11:56)
[2016-12-14] MEDS ORDERED: CEFTOLOZANE IV STA (11:56)
--- NOTE | 2016-12-14 11:57 | EMERGENCY ROOM VISIT NOTE ---
History First contact with patient: 10:58 Chief Complaint: WOUND INFECTION Stated Complaint: STITCHES POSSIBLY INFECTED Nursing Triage Summary: Patient c/o possible infection to left stump. History of Present Illness The patient is a 31 year old female who presents to the Emergency Room with complaints of possible infected laceration to left leg. The patient was seen here 6 days ago and had sutures placed to her left stump at the site of her left below the knee amputation. The patient and her mother states that there has been increasing redness surrounding the sutures. The patient rates her discomfort an 8/10. She has not had any fevers or vomiting. The patient's mother states that she has been more lethargic over the last week. The patient' s mother states that she has also been leaning to the right more but has been evaluated by her neurologist for this. She has also recently had her psychiatric medications changed. The patient has a history of spina bifida, MEDICAL TECH shunt with 12 revisions. She is currently on Xarelto for pulmonary embolus. 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 The patient has also been recently diagnosed with a urinary tract infection. She has been in consult with infectious disease but an antibiotic has not yet been started. She does have an indwelling Meade catheter. The patient has not had any fevers or vomiting. She has not had any chest pain or trouble breathing. She has not had any significant pain in her legs but states that she does not have sensation in the areas of the stumps. Review of Systems A 10 system review of systems was completed with positives and pertinent negatives listed in the HPI. Past Medical/Surgical History Medical Problems: (1) Allergic reaction caused by a drug (2) Anxiety (3) Asthma exacerbation (4) Bipolar 1 disorder (5) Cellulitis (6) Depression (7) Gastroparesis (8) GERD (gastroesophageal reflux disease) (9) Hydrocephalus (10) Intractable headache (11) Migraines (12) MRSA (methicillin resistant Staphylococcus aureus) (13) Osteomyelitis (14) Pulmonary embolism (15) Shunt placement with revision x8 (16) Spina bifida (17) UTI (urinary tract infection) Surgical Problems: (1) S/P BKA (below knee amputation) bilateral Family History Cancer Diabetes mellitus Lung disease Social History Smoking Status: Never Smoker Alcohol Use: none Drug Use: none Marital Status: single Housing Status: lives with family Occupation Status: disabled Current/Historical Medications Scheduled Benztropine Mesylate (Benztropine Mesylate), 1 MG PO BID Cholecalciferol (Vitamin D), 2,000 INTER.UNIT PO DAILY Clonazepam (Klonopin), 0.5 MG PO BID Cyanocobalamin (Vitamin B-12), 500 MCG PO DAILY Ferrous Sulfate (Ferrous Sulfate), 325 MG PO BID Fluticasone Prop/Salmeterol (Advair Diskus 500/50 60 Dose), 1 PUFF INH BID Gabapentin (Gabapentin), 300 MG PO TID Hydroxyzine Hcl (Atarax), 25 MG PO QD@1200 Hyoscyamine Sulfate (Levsin), 0.125 MG PO QID Levothyroxine Sodium (Levothyroxine Sodium), 25 MCG PO DAILY Linaclotide (Linzess), 290 MCG PO QAM [place] Carbonate ([place] Carbonate), 600 MG PO QPM [place] Carbonate Er (Lithobid Ext Rel), 450 MG PO QAM Montelukast Sod (Montelukast Sodium), 10 MG PO HS Multiple Vitamin (Multivitamin), 1 TAB PO DAILY Nortriptyline Hcl (Pamelor), 75 MG PO HS Nortriptyline Hcl (Pamelor), 25 MG PO HS Pantoprazole (Pantoprazole Sodium), 40 MG PO QAM Ranitidine Hcl (Zantac), 150 MG PO HS Risperidone (Risperidone), 1 MG PO QAM Risperidone (Risperdal), 2 MG PO QPM Rivaroxaban (Xarelto), 20 MG PO UD Sennosides (Senna Lax), 8.6 MG PO DAILY Wound Dressings (Hydrofera Blue Foam Dress), 1 EA EXT UD Scheduled PRN Albuterol Sulfate (Proair Respiclick), 2 PUFFS INH Q4-6HRS PRN for SOB/Wheezing Benzonatate (Tessalon Perles), 100 MG PO TID PRN for Cough Dihydroergotamine Mesylate (Migranal), 1 SPRAY EDIE UD PRN for Migraine Docusate Sodium (Dulcolax Stool Softener), 100 MG PO BID PRN for Constipation Hydroxyzine HCl (Hydroxyzine Pamoate), 25 MG PO Q8 PRN for Anxiety Indomethacin (Indomethacin), 25 MG PO TID PRN for Headache Levalbuterol (Levalbuterol HCl), 3 ML NEB Q6-8HRS PRN for Shortness of Breath Meclizine Hcl (Meclizine Hcl), 25 MG PO TID PRN for Dizziness or Vertigo Miconazole Nitrate (Topical) (Miconazole Nitrate), 1 APPLN TOP TID PRN for Rash Ondasetron Odt (Zofran Odt), 4 MG SL Q8 PRN for Nausea Topiramate (Topiramate), 75 MG PO BID PRN for Headache Tramadol HCl (Tramadol HCl), 50 MG PO TID PRN for Pain Allergies Coded Allergies: Adhesives (Verified Allergy, Intermediate, TAPE- HIVES, 12/14/16) Ceftriaxone (Verified Allergy, Intermediate, rash, 12/14/16) Chlorhexidine (Verified Allergy, Intermediate, RASH, 12/14/16) Ciprofloxacin (Verified Allergy, Intermediate, hives, 12/14/16) Latex (Verified Allergy, Intermediate, hives, 12/14/16) Levofloxacin (Verified Allergy, Intermediate, rash, 12/14/16) Linezolid (Verified Allergy, Intermediate, rash, 12/14/16) Piperacillin (Verified Allergy, Intermediate, SEVERE RASH, HIVES, 12/14/16) Tazobactam (Verified Allergy, Intermediate, SEVERE RASH, HIVES, 12/14/16) Vancomycin (Verified Allergy, Intermediate, rash, 12/14/16) Tobramycin (Verified Allergy, Mild, MILD RASH ON ARM, RED FACE, 12/14/16) IMPROVED AFTER BENADRYL, TAKING REST OF DOSE Amikacin (Verified Allergy, Unknown, PER DR ROBINS,RXN WAS TO ZOSYN NOT AMKrash;hives, 12/14/16) Sulfamethoxazole w/Trimethoprim (Verified Allergy, Unknown, Hives, 12/14/16 ) Can be pretreated with 10mg Zytrec 45 min prior to admin Physical Exam Vital Signs Date Time Temp Pulse Resp B/P (MAP) Pulse Ox O2 Delivery O2 Flow Rate FiO2 12/14/16 14:22 99 18 104/67 97 Room Air 12/14/16 12:33 93 18 116/71 97 Room Air 12/14/16 10:52 36.6 103 18 111/76 94 Room Air Physical Exam VITALS: Vitals are noted on the nurse's note and reviewed by myself. Vital signs stable. The patient is afebrile. GENERAL: This is a 31-year-old female, in no acute distress, nondiaphoretic, well-developed well-nourished. SKIN: The patient has bilateral [id number]-[id number]-[id number] amputations. There is a sutured wound on the left stump. There is moderate surrounding erythema. There is no purulent drainage. There is no lymphangitic streaking. There is minimal warmth. The patient has a port present in the right anterior chest. There is no tenting of the skin. Capillary reflex less than 2 seconds. HEAD: Normocephalic atraumatic. EARS: External auditory canals clear, tympanic membranes pearly benson without erythema or effusion bilaterally. EYES: Pupils equal round and reactive to light and accommodation. Conjunctivae without injection, sclerae without icterus. Extraocular movements intact. NOSE: Patent, turbinates without inflammation or discharge. MOUTH: Mucous membranes moist. Tonsils are not enlarged. Pharynx without erythema or exudate. Uvula midline. Airway patent. Tongue does not deviate. NECK: Supple without nuchal rigidity. No JVD. HEART: Regular rate and rhythm without murmurs gallops or rubs. LUNGS: Clear to auscultation bilaterally without wheezes, rales or rhonchi. No retractions or accessory muscle use. MUSCULOSKELETAL: The patient has several areas of ecchymosis over the upper extremities. She has bilateral [id number]-rav-[id number] amputations. The left leg is as above with mild cellulitis surrounding the sutured wound. The patient has full range of motion to the bilateral upper extremities. NEURO: Patient was alert and oriented to person place and time. The patient does close her eyes and seems sleepy but is able to stay awake and answer questions when conversing with her. Medical Decision & Procedures ER Provider Diagnostic Interpretation: CT SCAN OF THE BRAIN WITHOUT IV CONTRAST CLINICAL HISTORY: Fatigue. COMPARISON STUDY: Prior CT scans of the brain, most recently dated 10/10/2016 TECHNIQUE: Unenhanced axial CT scan of the brain is performed from the vertex to the skull base. 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 There is cortical atrophy of the occipital lobes out of proportion to the remainder of the brain parenchyma. There is no hemorrhage, mass effect, or evidence of acute territorial ischemia by CT criteria. Benson-white matter is preserved. No extra-axial fluid collection is seen. Scattered parenchymal calcifications are noted. There is mild encephalomalacia in the right occipital lobe at the site of the previous catheter. Ventricles, sulci, cisterns: The ventricles are slitlike, and a right frontal approach ventricular catheter is unchanged in position, terminating in the frontal horn of the right ventricle. Ventricular caliber is unchanged from previous. There is prominence of the occipital cortical sulci, likely related to parenchymal atrophy. Intracranial vascular: The visualized intracranial vasculature at the skull base is normal in appearance. Calvarium: There are right frontal and right occipital dianne holes. Dolichocephaly is noted. Sinuses and mastoids: The visualized paranasal sinuses are clear. The mastoid air cells are well pneumatized. Orbits: The bony orbits are grossly intact. IMPRESSION: 1. 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 There is no acute intracranial abnormality. 2. A right frontal approach ventricular shunt catheter is unchanged in position. There has been no significant change in ventricular caliber from 10/10/2016. LEFT KNEE 1 OR 2 VIEWS ROUTINE HISTORY:31 yearsFemalepossibly infected stitches prior left below the knee amputation. COMPARISON: None available TECHNIQUE: Portable AP and crosstable lateral views of the left lower leg FINDINGS: Prior left below the knee amputation. The bones are moderately demineralized with partial bony fusion of the distal most tibia and fibula. Small bone fragments are seen adjacent to the osseous amputation site, likely heterotopic ossifications. No erosive changes are seen to suggest osteomyelitis. There is mild stranding and prominence of the soft tissues without subcutaneous emphysema or other radiopaque foreign body. IMPRESSION: 1. Prior left lower extremity below the knee amputation without evidence of osteomyelitis or fracture. 2. Mild prominence of the amputation stump soft tissues. Laboratory Results 12/14/16 12:06 Red Blood Count 3.73, Mean Corpuscular Volume 95.4, Mean Corpuscular Hemoglobin 29.8, Mean Corpuscular Hemoglobin Concent 31.2, Mean Platelet Volume 9.6, Neutrophils (%) (Auto) 68.7, Lymphocytes (%) (Auto) 19.4, Monocytes (%) (Auto) 8.7, Eosinophils (%) (Auto) 2.7, Basophils (%) (Auto) 0.2, Neutrophils # (Auto) 6.01, Lymphocytes # (Auto) 1.70, Monocytes # (Auto) 0.76, Eosinophils # (Auto) 0.24, Basophils # (Auto) 0.02 12/14/16 12:06 Test 12/14/16 12:06 12/14/16 12:14 12/14/16 12:15 White Blood Count 8.76 K/uL (4.8-10.8) Red Blood Count 3.73 M/uL (4.2-5.4) Hemoglobin 11.1 g/dL (12.0-16.0) Hematocrit 35.6 % (37-47) Mean Corpuscular Volume 95.4 fL (80-100) Mean Corpuscular Hemoglobin 29.8 pg (25-34) Mean Corpuscular Hemoglobin Concent 31.2 g/dl (32-36) Platelet Count 236 K/uL (130-400) Mean Platelet Volume 9.6 fL (7.4-10.4) Neutrophils (%) (Auto) 68.7 % Lymphocytes (%) (Auto) 19.4 % Monocytes (%) (Auto) 8.7 % Eosinophils (%) (Auto) 2.7 % Basophils (%) (Auto) 0.2 % Neutrophils # (Auto) 6.01 K/uL (1.4-6.5) Lymphocytes # (Auto) 1.70 K/uL (1.2-3.4) Monocytes # (Auto) 0.76 K/uL (0.11-0.59) Eosinophils # (Auto) 0.24 K/uL (0-0.5) Basophils # (Auto) 0.02 K/uL (0-0.2) RDW Standard Deviation 58.1 fL (36.4-46.3) RDW Coefficient of Variation 16.7 % (11.5-14.5) Immature Granulocyte % (Auto) 0.3 % Immature Granulocyte # (Auto) 0.03 K/uL (0.00-0.02) Prothrombin Time 13.6 SECONDS (9.0-12.0) Prothromb Time International Ratio 1.3 (0.9-1.1) Activated Partial Thromboplast Time 22.2 SECONDS (21.0-31.0) Partial Thromboplastin Ratio 0.9 Anion Gap 7.0 mmol/L (3-11) Est Creatinine Clear Calc Drug Dose 96.2 ml/min Estimated GFR () 135.7 Estimated GFR (Non- 117.1 BUN/Creatinine Ratio 10.2 (10-20) Calcium Level 8.6 mg/dl (8.5-10.1) Total Bilirubin 0.3 mg/dl (0.2-1) Aspartate Amino Transf (AST/SGOT) 10 U/L (15-37) Alanine Aminotransferase (ALT/SGPT) 25 U/L (12-78) Alkaline Phosphatase 98 U/L (45-117) Total Protein 6.2 gm/dl (6.4-8.2) Albumin 2.7 gm/dl (3.4-5.0) Globulin 3.5 gm/dl (2.5-4.0) Albumin/Globulin Ratio 0.8 (0.9-2) Bedside Lactic Acid Venous 1.16 mmol/L (0.90-1.70) Urine Color YELLOW Urine Appearance CLEAR (CLEAR) Urine pH 8.0 (4.5-7.5) Urine Specific [place] 1.012 (1.000-1.030) Urine Protein NEG (NEG) Urine Glucose (UA) NEG (NEG) Urine Ketones NEG (NEG) Urine Occult Blood NEG (NEG) Urine Nitrite POS (NEG) Urine Bilirubin NEG (NEG) Urine Urobilinogen NEG (NEG) Urine Leukocyte Esterase SMALL (NEG) Urine WBC (Auto) 1-5 /hpf (0-5) Urine RBC (Auto) 0-4 /hpf (0-4) Urine Hyaline Casts (Auto) 0 /lpf (0-5) Urine Epithelial Cells (Auto) 10-20 /lpf (0-5) Urine Bacteria (Auto) 1+ (NEG) Medications Administered Medications (Trade) Dose Ordered Sig/Brenna Route Start Time Stop Time Status Last Admin Dose Admin Sodium Chloride 1,000 ml @ 250 mls/hr Q4H STAT IV 12/14/16 11:13 12/14/16 15:19 DC 12/14/16 12:28 250 MLS/HR Daptomycin 625 mg/ Sodium Chloride 62.5 ml @ 100 mls/hr ONE STAT IV 12/14/16 11:46 12/14/16 12:23 DC 12/14/16 12:28 100 MLS/HR Ceftolozane/ Tazobactam 1.5 gm/ Dextrose 111.4 ml @ 111.4 mls/ hr NOW STAT IV 12/14/16 11:56 12/14/16 12:55 DC 12/14/16 13:20 111.4 MLS/HR Sodium Chloride 1,000 ml @ 100 mls/hr Q10H IV 12/14/16 14:30 01/13/17 14:29 12/14/16 17:16 100 MLS/HR ED Course The patient was seen and examined. Previous visits were reviewed. The patient does not have a fever or leukocytosis. She has a mild anemia. She is a mild hypokalemia. She does not have any significant electrolyte abnormalities otherwise. Lactic acid is not elevated. INR is 1.3. Urinalysis suggests possible contamination versus urinary tract infection. The patient was hydrated with normal saline She was given IV daptomycin She was given IV Zerbaxa The patient presents to the ER with cellulitis to the left lower extremity at the site of the aohvt-wnv-btty amputation. She had sutures placed 6 days ago. There is no purulent drainage, fluctuance or lymphangitic streaking. She is afebrile and does not have a leukocytosis. Additionally, the patient has been diagnosed with a multidrug resistant urinary tract infection. Infectious disease has been contacted by the family but they have not decided on antibiotic at this time. The patient has also had some change in mental status. The patient's mother states that she is falling asleep more easily and seems to be leaning to the right more. She is not certain if this could be attributed to change in her psychiatric medications but certainly an infectious process would be considered as well. A CT scan of the brain was negative for significant change in the MEDICAL TECH shunt. I discussed the case with infectious disease, Dr. Sauceda as above. The patient will require further evaluation and management in the hospital. The case was discussed with the [facility] physician group hospitalist service and they will evaluate the patient. The case was also discussed with Dr. Cheng who agrees with the assessment and treatment plan. Medical Decision The differential diagnosis includes sepsis, cellulitis, urinary tract infection , MEDICAL TECH shunt malfunction, among others Consults Time Called: 1130 Consulting Physician: dr. sauceda The patient currently has a multidrug resistant Pseudomonas urinary tract infection. She has an indwelling Meade. She also appears to have cellulitis to the left lower stump. The patient has multiple drug allergies. Dr. Sauceda states that she has done well with Zerbaxa in the past and recommends this for the urinary tract infection and recommends daptomycin for the skin infection. Impression Primary Impression: Multiple drug resistant organism (MDRO) culture positive Additional Impressions: Urinary tract infection Cellulitis Departure Information Dispostion Admitted as an inpatient Referrals Laura GonzalezPMikeA. (PCP) Patient Instructions My [facility] Problem Qualifiers
[2016-12-14 12:35] LABS: HEMATOCRIT 35.6 % (37-47); MEAN CELL VOLUME 95.4 fL (80-100); MEAN CORPUSCULAR HEMOGLOBIN 29.8 pg (25-34); MEAN CORPUSCULAR HGB CONC 31.2 g/dl (32-36); MEAN PLATELET VOLUME 9.6 fL (7.4-10.4); PLATELET COUNT 236 K/uL (130-400); RED BLOOD COUNT 3.73 M/uL (4.2-5.4); WHITE BLOOD COUNT 8.76 K/uL (4.8-10.8)
[2016-12-14 12:45] LABS: INR 1.3 (0.9-1.1); PARTIAL THROMBOPLASTIN RATIO 0.9; PROTHROMBIN TIME (PATIENT) 13.6 SECONDS (9.0-12.0)
[2016-12-14 12:55] LABS: BUN/CREATININE RATIO 10.2 (10-20); CALCIUM 8.6 mg/dl (8.5-10.1); CREATININE 0.7 mg/dl (0.60-1.20); POTASSIUM 3.1 mmol/L (3.5-5.1)
[2016-12-14 12:58] LABS: ALB/GLOB RATIO 0.8 (0.9-2)
[2016-12-14 13:01] LABS: BASO % 0.2 %; BASO ABS # 0.02 K/uL (0-0.2); COMPLETE YES; EOS % 2.7 %; IG% 0.3 %; LYMPH % 19.4 %; MONO % 8.7 %; NEUT % 68.7 %
--- NOTE | 2016-12-14 13:05 | DIAGNOSTIC IMAGING REPORT ---
CT SCAN OF THE BRAIN WITHOUT IV CONTRAST CLINICAL HISTORY: Fatigue. COMPARISON STUDY: Prior CT scans of the brain, most recently dated 10/10/2016 TECHNIQUE: Unenhanced axial CT scan of the brain is performed from the vertex to the skull base. 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 There is cortical atrophy of the occipital lobes out of proportion to the remainder of the brain parenchyma. There is no hemorrhage, mass effect, or evidence of acute territorial ischemia by CT criteria. Benson-white matter is preserved. No extra-axial fluid collection is seen. Scattered parenchymal calcifications are noted. There is mild encephalomalacia in the right occipital lobe at the site of the previous catheter. Ventricles, sulci, cisterns: The ventricles are slitlike, and a right frontal approach ventricular catheter is unchanged in position, terminating in the frontal horn of the right ventricle. Ventricular caliber is unchanged from previous. There is prominence of the occipital cortical sulci, likely related to parenchymal atrophy. Intracranial vascular: The visualized intracranial vasculature at the skull base is normal in appearance. Calvarium: There are right frontal and right occipital dianne holes. Dolichocephaly is noted. Sinuses and mastoids: The visualized paranasal sinuses are clear. The mastoid air cells are well pneumatized. Orbits: The bony orbits are grossly intact. IMPRESSION: 1. 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 There is no acute intracranial abnormality. 2. A right frontal approach ventricular shunt catheter is unchanged in position. There has been no significant change in ventricular caliber from 10/10/2016. Electronically signed by: Devin Dacosta M.D. 12/14/2016 1:04 PM Dictated Date/Time: 12/14/2016 1:01 PM
[2016-12-14 13:34] LABS: URINE APPEARANCE CLEAR (CLEAR); URINE BILIRUBIN NEG (NEG); URINE COLOR YELLOW; URINE NITRITE POS (NEG); URINE SPECIFIC GRAVITY 1.012 (1.000-1.030); UROBILINOGEN NEG (NEG); ZZURINE CULT IF INDIC CATH YES
[2016-12-14 13:37] LABS: MANUAL MICROSCOPIC REQUIRED? NO; REVIEW REQ? NO
--- NOTE | 2016-12-14 14:10 | DIAGNOSTIC IMAGING REPORT ---
LEFT KNEE 1 OR 2 VIEWS ROUTINE HISTORY:31 yearsFemalepossibly infected stitches prior left below the knee amputation. COMPARISON: None available TECHNIQUE: Portable AP and crosstable lateral views of the left lower leg FINDINGS: Prior left below the knee amputation. The bones are moderately demineralized with partial bony fusion of the distal most tibia and fibula. Small bone fragments are seen adjacent to the osseous amputation site, likely heterotopic ossifications. No erosive changes are seen to suggest osteomyelitis. There is mild stranding and prominence of the soft tissues without subcutaneous emphysema or other radiopaque foreign body. IMPRESSION: 1. Prior left lower extremity below the knee amputation without evidence of osteomyelitis or fracture. 2. Mild prominence of the amputation stump soft tissues. The above report was generated using voice recognition software. It may contain grammatical, syntax or spelling errors. Electronically signed by: Bob Martino M.D. 12/14/2016 2:09 PM Dictated Date/Time: 12/14/2016 2:05 PM
[2016-12-14] MEDS ORDERED: TOPIRAMATE 25 MG TAB PO PRN (14:30)
[2016-12-14] MEDS ORDERED: MECLIZINE HCL 12.5 MG TAB PO PRN (14:30)
[2016-12-14] MEDS ORDERED: BENZONATATE 100MG CAP PO PRN (14:30)
[2016-12-14] MEDS ORDERED: MAGNESIUM HYDROXIDE SUSP 30 ML UDC PO PRN (14:30)
[2016-12-14] MEDS ORDERED: ALUMINUM/MAGNESIUM/SIMETH (MAALOX MAX) 30 ML UDC PO PRN (14:30)
[2016-12-14] MEDS ORDERED: ACETAMINOPHEN 325 MG TAB PO PRN (14:30)
[2016-12-14] MEDS ORDERED: POLYETHYLENE (MIRALAX) 17 GM PACK PO PRN (14:30)
--- NOTE | 2016-12-14 15:12 | History and Physical ---
History & Physical Date & Time of Service: Dec 14, 2016 at 14:40 Chief Complaint: Stitches Possibly Infected Primary Care Physician: Laura Gonzalez P.A. History of Present Illness Source: patient, family Ms. 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 Patient was in the ED on December 08 for a laceration of the L stump and had stitches placed. She bumped her leg at [place] while in her wheelchair. Since placement of the stitches she reports the erythema, edema, and purulent drainage increased. She denies pain directly at the site but reports L upper leg pain that has been ongoing since this laceration. Over the past few days she reports increasing fatigue and R sided leaning. This right sided leaning is concerning for the patient and mother who have seen neurology about this and no definitive answers. This complaint is not a new finding. She also reports recent changes in psychiatric medications by Dr. Goode including stopping Abilify, adding Benztropine, changing Atarax to the AM instead of noon, and changing Risperidone to 1 mg in AM and 2 mg in PM. Patient reports that she has had ongoing issues with hallucinations that are still present. She has had an ongoing issues with MDR Pseudomonas UTI with chronic suprapubic catheter. Last catheter change was December 11 and it gets changed every other week. She also utilizes nightly saline flushes. Mother notes she has had multiple bouts of diarrhea and patient reporting suprapubic pain and back pain. She was recently admitted for PE and reports chronic SOB that has not worsened. She also has a history of asthma and states she hasn't had to use her inhalers. She utilizes Tessalon perles for her cough that gives relief. She denies fevers (states she does not register fevers ) but reports intermittent chills. She denies CP, N/V, constipation, melena/ hematochezia. Past Medical/Surgical History Medical Problems: (1) Anxiety Status: Chronic (2) Bipolar 1 disorder Status: Chronic (3) Depression Status: Chronic (4) Gastroparesis Status: Chronic (5) GERD (gastroesophageal reflux disease) Status: Chronic (6) Hydrocephalus Status: Chronic (7) MRSA (methicillin resistant Staphylococcus aureus) Status: Resolved (8) Osteomyelitis Status: Resolved (9) Spina bifida Permanent Comment: Status: Chronic Family History Cancer Diabetes mellitus Lung disease Social History Smoking Status: Never Smoker Smokeless Tobacco Use: No Alcohol Use: none Drug Use: none Marital Status: single Housing status: lives with family Occupational Status: disabled 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 Allergies Coded Allergies: Adhesives (Verified Allergy, Intermediate, TAPE- HIVES, 12/14/16) Ceftriaxone (Verified Allergy, Intermediate, rash, 12/14/16) Chlorhexidine (Verified Allergy, Intermediate, RASH, 12/14/16) Ciprofloxacin (Verified Allergy, Intermediate, hives, 12/14/16) Latex (Verified Allergy, Intermediate, hives, 12/14/16) Levofloxacin (Verified Allergy, Intermediate, rash, 12/14/16) Linezolid (Verified Allergy, Intermediate, rash, 12/14/16) Piperacillin (Verified Allergy, Intermediate, SEVERE RASH, HIVES, 12/14/16) Tazobactam (Verified Allergy, Intermediate, SEVERE RASH, HIVES, 12/14/16) Vancomycin (Verified Allergy, Intermediate, rash, 12/14/16) Tobramycin (Verified Allergy, Mild, MILD RASH ON ARM, RED FACE, 12/14/16) IMPROVED AFTER BENADRYL, TAKING REST OF DOSE Amikacin (Verified Allergy, Unknown, PER DR ROBINS,RXN WAS TO ZOSYN NOT AMKrash;hives, 12/14/16) Sulfamethoxazole w/Trimethoprim (Verified Allergy, Unknown, Hives, 12/14/16 ) Can be pretreated with 10mg Zytrec 45 min prior to admin Home Medications Scheduled Benztropine Mesylate (Benztropine Mesylate), 1 MG PO BID Cholecalciferol (Vitamin D), 2,000 INTER.UNIT PO DAILY Clonazepam (Klonopin), 0.5 MG PO BID Cyanocobalamin (Vitamin B-12), 500 MCG PO DAILY Ferrous Sulfate (Ferrous Sulfate), 325 MG PO BID Fluticasone Prop/Salmeterol (Advair Diskus 500/50 60 Dose), 1 PUFF INH BID Gabapentin (Gabapentin), 300 MG PO TID Hydroxyzine Hcl (Atarax), 25 MG PO QD@1200 Hyoscyamine Sulfate (Levsin), 0.125 MG PO QID Levothyroxine Sodium (Levothyroxine Sodium), 25 MCG PO DAILY Linaclotide (Linzess), 290 MCG PO QAM [place] Carbonate ([place] Carbonate), 600 MG PO QPM [place] Carbonate Er (Lithobid Ext Rel), 450 MG PO QAM Montelukast Sod (Montelukast Sodium), 10 MG PO HS Multiple Vitamin (Multivitamin), 1 TAB PO DAILY Nortriptyline Hcl (Pamelor), 75 MG PO HS Nortriptyline Hcl (Pamelor), 25 MG PO HS Pantoprazole (Pantoprazole Sodium), 40 MG PO QAM Ranitidine Hcl (Zantac), 150 MG PO HS Risperidone (Risperidone), 1 MG PO QAM Risperidone (Risperdal), 2 MG PO QPM Rivaroxaban (Xarelto), 20 MG PO UD Sennosides (Senna Lax), 8.6 MG PO DAILY Wound Dressings (Hydrofera Blue Foam Dress), 1 EA EXT UD Scheduled PRN Albuterol Sulfate (Proair Respiclick), 2 PUFFS INH Q4-6HRS PRN for SOB/Wheezing Benzonatate (Tessalon Perles), 100 MG PO TID PRN for Cough Dihydroergotamine Mesylate (Migranal), 1 SPRAY EDIE UD PRN for Migraine Docusate Sodium (Dulcolax Stool Softener), 100 MG PO BID PRN for Constipation Hydroxyzine HCl (Hydroxyzine Pamoate), 25 MG PO Q8 PRN for Anxiety Indomethacin (Indomethacin), 25 MG PO TID PRN for Headache Levalbuterol (Levalbuterol HCl), 3 ML NEB Q6-8HRS PRN for Shortness of Breath Meclizine Hcl (Meclizine Hcl), 25 MG PO TID PRN for Dizziness or Vertigo Miconazole Nitrate (Topical) (Miconazole Nitrate), 1 APPLN TOP TID PRN for Rash Ondasetron Odt (Zofran Odt), 4 MG SL Q8 PRN for Nausea Topiramate (Topiramate), 75 MG PO BID PRN for Headache Tramadol HCl (Tramadol HCl), 50 MG PO TID PRN for Pain Review of Systems Constitutional: + chills, + weakness (generalizes), + fatigue, No fever Eyes: No worsening of vision ENT: No nasal symptoms, No sore throat, No trouble swallowing Respiratory: + cough, + shortness of breath (chronic), No sputum, No wheezing Cardiovascular: No chest pain, No palpitations Abdomen: + diarrhea, No pain, No nausea, No vomiting, No constipation Musculoskeletal: + swelling (L stump), + problem reported (dull/ache in L upper thigh; no sensation at amputation site; back pain and lower abdominal pain ) Neurologic: + problem reported (chronic R sided leaning) Hematologic / Lymphatic: + problem reported (easy bruisnig) Integumentary: + new/changing skin lesions (erythema and edema of LLE at site of trauma at amputation stump), No rash Physical Exam Vital Signs Date Time Temp Pulse Resp B/P (MAP) Pulse Ox O2 Delivery O2 Flow Rate FiO2 12/14/16 12:33 93 18 116/71 97 Room Air 12/14/16 10:52 36.6 103 18 111/76 94 Room Air General Appearance: WD/WN, no apparent distress Head: normocephalic, atraumatic Eyes: sclerae normal ENT: hearing grossly normal Neck: supple, no JVD, trachea midline Respiratory/Chest: lungs clear, normal breath sounds, no respiratory distress, no accessory muscle use Cardiovascular: regular rate, rhythm, no gallop, no murmur Abdomen/GI: normal bowel sounds, non tender, soft Genitourinary - Female: + pertinent finding (suprapubic catheter) Extremities/Musculoskelatal: + pertinent finding (bilateral amputations at level of knee with well-healed incisions; new traumatic C-shaped laceration of the L amputation site with intact sutures; No drainage noted with blacked skin around sutures; with diffuse erythema and edema) Neurologic/Psych: alert, oriented x 3 Skin: normal color, warm/dry Diagnostics Laboratory Results Results Past 24 Hours Test 12/14/16 12:06 12/14/16 12:14 12/14/16 12:15 Range/Units White Blood Count 8.76 4.8-10.8 K/uL Red Blood Count 3.73 4.2-5.4 M/uL Hemoglobin 11.1 12.0-16.0 g/dL Hematocrit 35.6 37-47 % Mean Corpuscular Volume 95.4 80-100 fL Mean Corpuscular Hemoglobin 29.8 25-34 pg Mean Corpuscular Hemoglobin Concent 31.2 32-36 g/dl Platelet Count 236 130-400 K/uL Mean Platelet Volume 9.6 7.4-10.4 fL Neutrophils (%) (Auto) 68.7 % Lymphocytes (%) (Auto) 19.4 % Monocytes (%) (Auto) 8.7 % Eosinophils (%) (Auto) 2.7 % Basophils (%) (Auto) 0.2 % Neutrophils # (Auto) 6.01 1.4-6.5 K/uL Lymphocytes # (Auto) 1.70 1.2-3.4 K/uL Monocytes # (Auto) 0.76 0.11-0.59 K/uL Eosinophils # (Auto) 0.24 0-0.5 K/uL Basophils # (Auto) 0.02 0-0.2 K/uL RDW Standard Deviation 58.1 36.4-46.3 fL RDW Coefficient of Variation 16.7 11.5-14.5 % Immature Granulocyte % (Auto) 0.3 % Immature Granulocyte # (Auto) 0.03 0.00-0.02 K/uL Prothrombin Time 13.6 9.0-12.0 SECONDS Prothromb Time International Ratio 1.3 0.9-1.1 Activated Partial Thromboplast Time 22.2 21.0-31.0 SECONDS Partial Thromboplastin Ratio 0.9 Sodium Level 146 136-145 mmol/L Potassium Level 3.1 3.5-5.1 mmol/L Chloride Level 114 98-107 mmol/L Carbon Dioxide Level 25 21-32 mmol/L Anion Gap 7.0 3-11 mmol/L Blood Urea Nitrogen 7 7-18 mg/dl Creatinine 0.70 0.60-1.20 mg/dl Est Creatinine Clear Calc Drug Dose 96.2 ml/min Estimated GFR () 135.7 Estimated GFR (Non- 117.1 BUN/Creatinine Ratio 10.2 10-20 Random Glucose 108 70-99 mg/dl Calcium Level 8.6 8.5-10.1 mg/dl Total Bilirubin 0.3 0.2-1 mg/dl Aspartate Amino Transf (AST/SGOT) 10 15-37 U/L Alanine Aminotransferase (ALT/SGPT) 25 12-78 U/L Alkaline Phosphatase 98 45-117 U/L Total Protein 6.2 6.4-8.2 gm/dl Albumin 2.7 3.4-5.0 gm/dl Globulin 3.5 2.5-4.0 gm/dl Albumin/Globulin Ratio 0.8 0.9-2 Bedside Lactic Acid Venous 1.16 0.90-1.70 mmol/L Urine Color YELLOW Urine Appearance CLEAR CLEAR Urine pH 8.0 4.5-7.5 Urine Specific [place] 1.012 1.000-1.030 Urine Protein NEG NEG Urine Glucose (UA) NEG NEG Urine Ketones NEG NEG Urine Occult Blood NEG NEG Urine Nitrite POS NEG Urine Bilirubin NEG NEG Urine Urobilinogen NEG NEG Urine Leukocyte Esterase SMALL NEG Urine WBC (Auto) 1-5 0-5 /hpf Urine RBC (Auto) 0-4 0-4 /hpf Urine Hyaline Casts (Auto) 0 0-5 /lpf Urine Epithelial Cells (Auto) 10-20 0-5 /lpf Urine Bacteria (Auto) 1+ NEG Microbiology Results 12/14/16 Blood Culture, Received Pending 12/14/16 Blood Culture, Received Pending 12/14/16 Urine Culture, Received Pending Diagnostic Radiology LEFT KNEE 1 OR 2 VIEWS ROUTINE FINDINGS: Prior left below the knee amputation. The bones are moderately demineralized with partial bony fusion of the distal most tibia and fibula. Small bone fragments are seen adjacent to the osseous amputation site, likely heterotopic ossifications. No erosive changes are seen to suggest osteomyelitis. There is mild stranding and prominence of the soft tissues without subcutaneous emphysema or other radiopaque foreign body. IMPRESSION: 1. Prior left lower extremity below the knee amputation without evidence of osteomyelitis or fracture. 2. Mild prominence of the amputation stump soft tissues. CT SCAN OF THE BRAIN WITHOUT IV CONTRAST FINDINGS: Brain parenchyma: Congenital abnormalities of the brain parenchyma are similar to previous. 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 There is cortical atrophy of the occipital lobes out of proportion to the remainder of the brain parenchyma. There is no hemorrhage, mass effect, or evidence of acute territorial ischemia by CT criteria. Benson-white matter is preserved. No extra-axial fluid collection is seen. Scattered parenchymal calcifications are noted. There is mild encephalomalacia in the right occipital lobe at the site of the previous catheter. Ventricles, sulci, cisterns: The ventricles are slitlike, and a right frontal approach ventricular catheter is unchanged in position, terminating in the frontal horn of the right ventricle. Ventricular caliber is unchanged from previous. There is prominence of the occipital cortical sulci, likely related to parenchymal atrophy. Intracranial vascular: The visualized intracranial vasculature at the skull base is normal in appearance. Calvarium: There are right frontal and right occipital dianne holes. Dolichocephaly is noted. Sinuses and mastoids: The visualized paranasal sinuses are clear. The mastoid air cells are well pneumatized. Orbits: The bony orbits are grossly intact. IMPRESSION: 1. 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 There is no acute intracranial abnormality. 2. A right frontal approach ventricular shunt catheter is unchanged in position. There has been no significant change in ventricular caliber from 10/10/2016. Impression Assessment and Plan Ms. 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 Stitches placed for a traumatic laceration on December 08 L Amputation Stump Cellulitis S/P Laceration (December 08): - XR without evidence of bony involvement - Daptomycin at 6 mg/kg daily until BCx resulted then can change to 4 mg/kg or per discretion of ID - Consult ID - recommendations for dosing and duration for leg and MDR UTI - Consult wound MDR Pseudomonas UTI with Suprapubic Catheter: - Zerbaxa 1.5 g IV Q8H Diarrhea: - Will check for C. diff if episode occurs and start probiotics Pulmonary Embolism: STABLE - Tessalon perles PRN and Xarelto 20 mg HS Asthma without Exacerbation: STABLE - Inhalers and Nebs PRN - Singulair 10 mg daily Spina Bifida/Neurogenic Bowel and Bladder S/P Suprapubic Catheter: - Levsin 0.125 mg QID - Mother does nightly saline flushes and plans to bring in supplies and dressings for suprapubic catheter Hydrocephalus S/P PROGRAM ASSOCIATE Shunt: - CT without evidence of acute changes Bipolar Disorder with Psychotic Features: STABLE - Reports continued intermittent hallucinations - follows with Dr. Goode with recent med changes - Cogentin 1 mg BID, [place] 250 mg AM and 600 PM, Pamelor 100 mg HS, Risperidone 1 mg AM and 2 mg PM - Mother reports Hydroxyzine 25 mg in AM and 2 tabs PM instead of at noon then PRN - left medication as in our record as I did discuss this with the mother but would like to verify this is correct before implementing Hypothyroidism: Synthroid 25 mcg daily DVT Prophylaxis: Xarelto Code Status: FULL RESUSCITATION Disposition: Lives at home with mother; ambulates with wheelchair; Has [facility] Resident Physician Supervision Note: Pt seen/examined independently. I discussed the PA and agree with the findings and plan as documented in the note. Any exceptions or clarifications are listed here: 31 y/o F with complex med Hx - spina bifida, L BKA, chronic cellulitis and recurrent resistant UTIs, recent PE presenting with cellulitis and a UTI - admitted at request of ID as she requires broad spectrum IV antbiotics. She also c/o a tendency to lean R over the last few months - has not been able to obtain a diagnosis. OE AAO x 3 S1,2 R CTAB NT, ND inflammation over LLE distally P: Started on Zerbaxa per ID Cont Xarelto for PEs Cont additional home meds as prescribed Above discussed with pot and daughter B Documented By: Tej Brewer Level of Care Med/Surg Resuscitation Status FULL RESUSCITATION VTE Prophylaxis VTE Risk Assessment Done? Y/N: Yes Risk Level: Moderate Given or contraindicated: Other Anticoagulation (Xarelto)
[2016-12-14] MEDS ORDERED: LEVALBUTEROL/IPRATROPIUM NEB INH PRN (15:15)
[2016-12-14] MEDS ORDERED: ALBUTEROL HFA 8 GM INHALER INH PRN (15:15)
[2016-12-14] MEDS ORDERED: hydrOXYzine HCL 25 MG TAB PO PRN (15:15)
[2016-12-14] MEDS ORDERED: MICONAZOLE NITRATE POWDER 43 GM EXT PRN (15:15)
[2016-12-14] MEDS ORDERED: POTASSIUM CHLORIDE 10 MEQ TABCR PO STA (15:34)
[2016-12-14] MEDS ORDERED: LEVALBUTEROL 1.25MG/0.5ML NEB INH PRN (15:45)
[2016-12-14] MEDS ORDERED: IPRATROPIUM BROMIDE NEB SOLN 0.02% 2.5 ML VIAL INH PRN (15:45)
[2016-12-14 15:51] VITALS: Ht 119.4 cm; Wt 105.0 kg
--- NOTE | 2016-12-14 16:01 | Medical Consult ---
Consultation Date of Consultation: Dec 14, 2016. Attending Physician: Reason for Consultation: MDR UTI and LLE cellulitis. Duration of Abx. History of Present Illness 31-year-old female well known to the Infectious Disease service with history of spina bifida,bilateral BKAs, indwelling suprapubic catheter with recurrent urinary tract infections, who suffered laceration of her left stump approximately 6 days ago, which was sutured in the emergency department. Now with 1-2 day history of progressively worsening swelling and erythema around the area of laceration. Also has had some clouding of her urine and recent urine culture growing multi-drug resistant Pseudomonas aeruginosa. Has had low- grade fever and weakness. As discussed with emergency department physician, patient has been started on combination of daptomycin and Zerbaxa. cultures are pending. Past Medical/Surgical History Medical Problems: (1) Acute pyelonephritis Status: Acute (2) Allergic reaction Status: Acute (3) Allergic reaction Status: Acute (4) Asthma with exacerbation Status: Acute (5) Chronic UTI (urinary tract infection) Status: Acute (6) Complicated urinary tract infection Status: Acute (7) Delusions Status: Acute (8) Gabapentin overdose Status: Acute (9) Hypokalemia Status: Acute (10) Intractable headache Status: Acute (11) Laceration Status: Acute (12) Low back pain Status: Acute (13) Lower abdominal pain Status: Acute (14) Lower abdominal pain Status: Acute (15) Mood disorder Status: Acute (16) Mood disorder Status: Acute (17) Nausea Status: Acute (18) Paranoia Status: Acute (19) Pelvic pain Status: Acute (20) Right flank pain Status: Acute (21) Right leg pain Status: Acute (22) Self-harming behavior Status: Acute (23) Shunt malfunction Status: Acute (24) Shunt malfunction Status: Acute (25) Suicidal ideation Status: Acute (26) Suicidal ideation Status: Acute (27) Suprapubic pain Status: Acute (28) Urinary tract infection Status: Acute (29) Urinary tract infection Status: Acute (30) UTI (urinary tract infection) Status: Acute (31) UTI (urinary tract infection) Status: Acute (32) Weakness Status: Acute Medical Problems: (1) Allergic reaction caused by a drug (2) Anxiety (3) Asthma exacerbation (4) Bipolar 1 disorder (5) Cellulitis (6) Depression (7) Gastroparesis (8) GERD (gastroesophageal reflux disease) (9) Hydrocephalus (10) Intractable headache (11) Migraines (12) MRSA (methicillin resistant Staphylococcus aureus) (13) Osteomyelitis (14) Pulmonary embolism (15) Shunt placement with revision x8 (16) Spina bifida (17) UTI (urinary tract infection) Surgical Problems: (1) S/P BKA (below knee amputation) bilateral Family History Cancer Diabetes mellitus Lung disease Social History Smoking Status: Never Smoker Smokeless Tobacco Use: No Alcohol Use: none Drug Use: none Marital Status: single Housing Status: lives with family Occupation Status: disabled Allergies Coded Allergies: Adhesives (Verified Allergy, Intermediate, TAPE- HIVES, 12/14/16) Ceftriaxone (Verified Allergy, Intermediate, rash, 12/14/16) Chlorhexidine (Verified Allergy, Intermediate, RASH, 12/14/16) Ciprofloxacin (Verified Allergy, Intermediate, hives, 12/14/16) Latex (Verified Allergy, Intermediate, hives, 12/14/16) Levofloxacin (Verified Allergy, Intermediate, rash, 12/14/16) Linezolid (Verified Allergy, Intermediate, rash, 12/14/16) Piperacillin (Verified Allergy, Intermediate, SEVERE RASH, HIVES, 12/14/16) Tazobactam (Verified Allergy, Intermediate, SEVERE RASH, HIVES, 12/14/16) Vancomycin (Verified Allergy, Intermediate, rash, 12/14/16) Tobramycin (Verified Allergy, Mild, MILD RASH ON ARM, RED FACE, 12/14/16) IMPROVED AFTER BENADRYL, TAKING REST OF DOSE Amikacin (Verified Allergy, Unknown, PER DR ROBINS,RXN WAS TO ZOSYN NOT AMKrash;hives, 12/14/16) Sulfamethoxazole w/Trimethoprim (Verified Allergy, Unknown, Hives, 12/14/16 ) Can be pretreated with 10mg Zytrec 45 min prior to admin Current Inpatient Medications Current Inpatient Medications Medications (Trade) Dose Ordered Sig/Brenna Route Start Time Stop Time Status Last Admin Dose Admin Acetaminophen (Tylenol Tab) 650 mg Q4H PRN PO 12/14/16 14:30 01/13/17 14:29 Al Hydrox/Mg Hydrox/Simethicone (Maalox Max Susp) 15 ml Q4H PRN PO 12/14/16 14:30 01/13/17 14:29 Magnesium Hydroxide (Milk Of Magnesia Susp) 30 ml Q6H PRN PO 12/14/16 14:30 01/13/17 14:29 Polyethylene (Miralax Powder Packet) 17 gm DAILY PRN PO 12/14/16 14:30 01/13/17 14:29 Ondansetron HCl (Zofran Inj) 4 mg Q6H PRN IV 12/14/16 14:30 01/13/17 14:29 Benzonatate (Tessalon Perles Cap) 100 mg TID PRN PO 12/14/16 14:30 01/13/17 14:29 Clonazepam (Klonopin Tab) 0.5 mg BID PO 12/14/16 21:00 01/13/17 20:59 Cyanocobalamin (Vitamin B-12 Tab) 500 mcg DAILY PO 12/15/16 09:00 01/14/17 08:59 Salmeterol Xinafoate/ Fluticasone (Advair Diskus 500/50 Inh) 1 puff BID INH 12/14/16 21:00 01/13/17 20:59 Gabapentin (Neurontin Cap) 300 mg TID PO 12/14/16 21:00 01/13/17 20:59 Hydroxyzine HCl (Vistaril Tab) 25 mg QD@1200 PO 12/15/16 12:00 01/14/17 11:59 Hyoscyamine Sulfate (Levsin Tab) 0.125 mg QID PO 12/14/16 17:00 01/13/17 16:59 Levothyroxine Sodium (Synthroid Tab) 25 mcg DAILYBB PO 12/15/16 07:00 01/14/17 06:59 [place] Carbonate (Eskalith Cr Tab) 450 mg QAM PO 12/15/16 09:00 01/14/17 08:59 Meclizine HCl (Antivert Tab) 25 mg TID PRN PO 12/14/16 14:30 01/13/17 14:29 Montelukast Sodium (Singulair Tab) 10 mg HS PO 12/14/16 21:00 01/13/17 20:59 Nortriptyline HCl (Pamelor Cap) 100 mg HS PO 12/14/16 21:00 01/13/17 20:59 Ranitidine HCl (zANTac TAB) 150 mg HS PO 12/14/16 21:00 01/13/17 20:59 Risperidone (Risperdal Tab) 1 mg QAM PO 12/15/16 09:00 01/14/17 08:59 Risperidone (Risperdal Tab) 2 mg QPM PO 12/14/16 21:00 01/13/17 20:59 Rivaroxaban (Xarelto Tab) 20 mg HS PO 12/14/16 21:00 01/13/17 20:59 Topiramate (Topamax Tab) 75 mg BID PRN PO 12/14/16 14:30 01/13/17 14:29 Tramadol HCl (Ultram Tab) 50 mg TID PRN PO 12/14/16 14:30 01/13/17 14:29 Albuterol (Ventolin Hfa Inhaler) 2 puffs Q4H PRN INH 12/14/16 15:15 01/13/17 15:14 Cholecalciferol (Vitamin D Tab) 2,000 inter.unit DAILY PO 12/15/16 09:00 01/14/17 08:59 Miscellaneous Information (Order Awaiting Action) 1 ea QS N/A 12/14/16 16:00 01/13/17 15:59 Ferrous Sulfate (Feosol Tab) 325 mg BIDM PO 12/14/16 18:00 01/13/17 17:59 Hydroxyzine HCl (Vistaril Tab) 25 mg Q8H PRN PO 12/14/16 15:15 01/13/17 15:14 [place] Carbonate ([place] Carbonate Tab) 600 mg QDD PO 12/14/16 18:00 01/13/17 17:59 Miconazole Nitrate (Desenex Powder) 1 appln TID PRN EXT 12/14/16 15:15 01/13/17 15:14 Sodium Chloride 1,000 ml @ 100 mls/hr Q10H IV 12/14/16 14:30 01/13/17 14:29 UNV Daptomycin 630 mg/ Sodium Chloride 62.6 ml @ 100 mls/hr DAILY IV 12/15/16 09:00 12/25/16 08:59 UNV Lactobacillus Acidophilus (Floranex Tab) 4 tab TIDM PO 12/14/16 18:00 01/13/17 17:59 Ceftolozane/ Tazobactam 1.5 gm/ Dextrose 111.4 ml @ 111.4 mls/ hr Q8H IV 12/14/16 22:00 12/24/16 13:59 Benztropine Mesylate (Cogentin Tab) 1 mg BID PO 12/14/16 21:00 01/13/17 20:59 Ipratropium [place] (Atrovent 0.02% 0.5MG/2.5ML Neb) 0.5 mg Q2H PRN INH 12/14/16 15:45 01/13/17 15:44 Levalbuterol (Xopenex 1.25MG/ 0.5ML Neb) 1.25 mg Q2H PRN INH 12/14/16 15:45 01/13/17 15:44 Review of Systems Constitutional: + weakness, + fatigue, No fever Eyes: No problem reported Respiratory: + shortness of breath Cardiovascular: No problem reported Abdomen: + diarrhea Musculoskeletal: + muscle pain, + swelling Genitourinary - Female: + problem reported (see HPI) Neurologic: + weakness, + balance problems Psychiatric: No problem reported Hematologic / Lymphatic: + abnormal bleeding/bruising Integumentary: + new/changing skin lesions Physical Exam Date Time Temp Pulse Resp B/P (MAP) Pulse Ox O2 Delivery O2 Flow Rate FiO2 12/14/16 15:37 100 18 94/64 98 12/14/16 14:22 99 18 104/67 97 Room Air 12/14/16 12:33 93 18 116/71 97 Room Air 12/14/16 10:52 36.6 103 18 111/76 94 Room Air General Appearance: WD/WN, no apparent distress Head: normocephalic, atraumatic Eyes: normal inspection, EOMI, sclerae normal ENT: normal ENT inspection, pharynx normal Neck: supple, no adenopathy, trachea midline Respiratory/Chest: chest non-tender, lungs clear, normal breath sounds, no respiratory distress Cardiovascular: regular rate, rhythm, no gallop, no murmur Abdomen/GI: normal bowel sounds, non tender, soft, no organomegaly Genitourinary - Female: + pertinent finding ([place] in place) Extremities/Musculoskelatal: no calf tenderness, + pertinent finding (bilat BKAs, LL stump with erythema and induration) Neurologic/Psych: alert, oriented x 3 Skin: normal color, no rash, + pertinent finding (erythema and swelling around left stump laceration) Lymphatic: no adenopathy Laboratory Results Date/Time Source Procedure Growth Status 12/14/16 12:06 Blood Blood Culture Pending Received 12/14/16 11:24 Blood Blood Culture Pending Received 12/14/16 12:15 Urine,Catheterized Urine Culture Pending Received Last 24 Hours Test 12/14/16 12:06 12/14/16 12:14 12/14/16 12:15 White Blood Count 8.76 K/uL Red Blood Count 3.73 M/uL Hemoglobin 11.1 g/dL Hematocrit 35.6 % Mean Corpuscular Volume 95.4 fL Mean Corpuscular Hemoglobin 29.8 pg Mean Corpuscular Hemoglobin Concent 31.2 g/dl Platelet Count 236 K/uL Mean Platelet Volume 9.6 fL Neutrophils (%) (Auto) 68.7 % Lymphocytes (%) (Auto) 19.4 % Monocytes (%) (Auto) 8.7 % Eosinophils (%) (Auto) 2.7 % Basophils (%) (Auto) 0.2 % Neutrophils # (Auto) 6.01 K/uL Lymphocytes # (Auto) 1.70 K/uL Monocytes # (Auto) 0.76 K/uL Eosinophils # (Auto) 0.24 K/uL Basophils # (Auto) 0.02 K/uL RDW Standard Deviation 58.1 fL RDW Coefficient of Variation 16.7 % Immature Granulocyte % (Auto) 0.3 % Immature Granulocyte # (Auto) 0.03 K/uL Prothrombin Time 13.6 SECONDS Prothromb Time International Ratio 1.3 Activated Partial Thromboplast Time 22.2 SECONDS Partial Thromboplastin Ratio 0.9 Sodium Level 146 mmol/L Potassium Level 3.1 mmol/L Chloride Level 114 mmol/L Carbon Dioxide Level 25 mmol/L Anion Gap 7.0 mmol/L Blood Urea Nitrogen 7 mg/dl Creatinine 0.70 mg/dl Est Creatinine Clear Calc Drug Dose 96.2 ml/min Estimated GFR () 135.7 Estimated GFR (Non- 117.1 BUN/Creatinine Ratio 10.2 Random Glucose 108 mg/dl Calcium Level 8.6 mg/dl Total Bilirubin 0.3 mg/dl Aspartate Amino Transf (AST/SGOT) 10 U/L Alanine Aminotransferase (ALT/SGPT) 25 U/L Alkaline Phosphatase 98 U/L Total Protein 6.2 gm/dl Albumin 2.7 gm/dl Globulin 3.5 gm/dl Albumin/Globulin Ratio 0.8 Bedside Lactic Acid Venous 1.16 mmol/L Urine Color YELLOW Urine Appearance CLEAR Urine pH 8.0 Urine Specific [place] 1.012 Urine Protein NEG Urine Glucose (UA) NEG Urine Ketones NEG Urine Occult Blood NEG Urine Nitrite POS Urine Bilirubin NEG Urine Urobilinogen NEG Urine Leukocyte Esterase SMALL Urine WBC (Auto) 1-5 /hpf Urine RBC (Auto) 0-4 /hpf Urine Hyaline Casts (Auto) 0 /lpf Urine Epithelial Cells (Auto) 10-20 /lpf Urine Bacteria (Auto) 1+ LEFT KNEE 1 OR 2 VIEWS ROUTINE HISTORY:31 yearsFemalepossibly infected stitches prior left below the knee amputation. COMPARISON: None available TECHNIQUE: Portable AP and crosstable lateral views of the left lower leg FINDINGS: Prior left below the knee amputation. The bones are moderately demineralized with partial bony fusion of the distal most tibia and fibula. Small bone fragments are seen adjacent to the osseous amputation site, likely heterotopic ossifications. No erosive changes are seen to suggest osteomyelitis. There is mild stranding and prominence of the soft tissues without subcutaneous emphysema or other radiopaque foreign body. IMPRESSION: 1. Prior left lower extremity below the knee amputation without evidence of osteomyelitis or fracture. 2. Mild prominence of the amputation stump soft tissues. The above report was generated using voice recognition software. It may contain grammatical, syntax or spelling errors. Assessment & Plan Infection at LLE laceration site as well as UTI with MDR Pseudomonas. As discussed with ER, patient to be treated with daptomycin and ceftolozone- tazobactam, likely in range of 7 days. Await blood and urine culture. Will follow.
[2016-12-14 16:17] VITALS: BP 115/72; PULSE 92; TEMP 36.7; O2SAT 95
[2016-12-14] MEDS: SODIUM CHLORIDE 0.9% 1000ML 1,000 ML IV SCH (17:16)
[2016-12-14] MEDS: LITHIUM CARBONATE 300 MG TAB PO SCH (17:18)
[2016-12-14] MEDS: FERROUS SULFATE 325 MG TAB PO SCH (17:19)
[2016-12-14] MEDS: HYOSCYAMINE SULFATE 0.125 MG SL TAB PO SCH ×2 (17:21→21:06)
[2016-12-14] MEDS: LACTOBACILLUS ACIDOPHILUS (FLORANEX) TAB PO SCH (17:22)
[2016-12-14] MEDS ORDERED: BENZTROPINE MESYLATE 1 MG TAB PO SCH (21:00)
[2016-12-14] MEDS ORDERED: NORTRIPTYLINE HCL 25 MG CAP PO SCH (21:00)
[2016-12-14] MEDS: FLUTICASONE/SALMETEROL (ADVAIR) 500/50 INH 14 PUFF INH SCH (21:02)
[2016-12-14] MEDS: CLONAZEPAM 0.5 MG TAB PO SCH (21:02)
[2016-12-14] MEDS: NORTRIPTYLINE HCL 25 MG CAP PO SCH (21:03)
[2016-12-14] MEDS: RIVAROXABAN 20 MG TAB PO SCH (21:04)
[2016-12-14] MEDS: RANITIDINE HCL 150 MG TAB PO SCH (21:04)
[2016-12-14] MEDS: RISPERIDONE 1 MG TAB PO SCH (21:05)
[2016-12-14] MEDS: MONTELUKAST SOD 10 MG TAB PO SCH (21:06)
[2016-12-14] MEDS: BENZTROPINE MESYLATE 1 MG TAB PO SCH (21:07)
[2016-12-14] MEDS: GABAPENTIN 300 MG CAP PO SCH (21:07)
[2016-12-14] MEDS: CEFTOLOZANE IV SCH (21:23)
[2016-12-14] MEDS: TAZOBACTAM IV SCH (21:23)
[2016-12-14] MEDS: DEXTROSE 5% IV SCH (21:23)
[2016-12-15] MEDS: SODIUM CHLORIDE 0.9% 1000ML 1,000 ML IV SCH ×3 (00:04→20:49)
[2016-12-15 00:27] VITALS: BP 93/63; PULSE 94; TEMP 36.8; O2SAT 92
[2016-12-15] MEDS: DEXTROSE 5% IV SCH ×3 (06:05→21:39)
[2016-12-15] MEDS: TAZOBACTAM IV SCH ×3 (06:05→21:39)
[2016-12-15] MEDS: CEFTOLOZANE IV SCH ×3 (06:05→21:39)
[2016-12-15] MEDS: LEVOTHYROXINE 25 MCG TAB PO SCH (06:06)
[2016-12-15 07:06] VITALS: BP 120/81; PULSE 87; TEMP 36.9; O2SAT 96
[2016-12-15] MEDS: CHOLECALCIFEROL 1000 INTER.UNIT TAB PO SCH (07:40)
[2016-12-15] MEDS: GABAPENTIN 300 MG CAP PO SCH ×3 (07:40→20:51)
[2016-12-15] MEDS: CYANOCOBALAMIN 500 MCG TAB (VIT B-12) PO SCH (07:40)
[2016-12-15] MEDS: FLUTICASONE/SALMETEROL (ADVAIR) 500/50 INH 14 PUFF INH SCH ×2 (07:40→20:50)
[2016-12-15] MEDS: RISPERIDONE 1 MG TAB PO SCH ×2 (07:40→20:52)
--- NOTE | 2016-12-15 07:40 | Clinical Documentation Query ---
CLINICAL DOCUMENTATION QUERY 31 year old female who presents with cellulitis to laceration involving her left BKA stump. In your clinical opinion is this patient being managed for: ( x ) Stump complication presenting as cellulitis requiring treatment with IV Vancomycin and excisional debridement ( ) Other explanation of clinical findings (Please Explain) ( ) Unable to determine (Please Define) ( ) Need to Discuss ( ) Not Agree The medical record reflects the following clinical findings, treatment, and risk factors. Clinical Indicators: ED history and assessment states, "The patient was seen here 6 days ago and had sutures placed to her left stump at the site of her left below the knee amputation. The patient and her mother states that there has been increasing redness surrounding the sutures. The patient rates her discomfort an 8/10. There is a sutured wound on the left stump. There is moderate surrounding erythema. There is no purulent drainage. There is no lymphangitic streaking. There is minimal warmth." Treatment: ID consult, IV Daptomycin, IV Zerbaxa, WOCN consult Risk Factors: Cellulitis to stump 2/2 Laceration. Please clarify and document your clinical opinion in the progress notes and discharge summary. Terms such as "probable", "suspected", "likely", "questionable", "possible", or "still to be ruled out" are acceptable. IF IN AGREEMENT, YOU MUST DOCUMENT ABOVE DIAGNOSTIC STATEMENT IN DAILY PROGRESS NOTES AND DISCHARGE SUMMARY. This document is not part of the patient's record. Thank You, Christiano Carlisle RN [phone]
[2016-12-15] MEDS: CLONAZEPAM 0.5 MG TAB PO SCH ×2 (07:41→20:50)
[2016-12-15] MEDS: HYOSCYAMINE SULFATE 0.125 MG SL TAB PO SCH ×4 (07:41→20:55)
[2016-12-15] MEDS: LITHIUM CARBONATE 450 MG TABCR PO SCH (07:41)
[2016-12-15] MEDS: BENZTROPINE MESYLATE 1 MG TAB PO SCH ×2 (07:41→20:59)
[2016-12-15] MEDS: LACTOBACILLUS ACIDOPHILUS (FLORANEX) TAB PO SCH ×3 (07:41→17:08)
[2016-12-15] MEDS: FERROUS SULFATE 325 MG TAB PO SCH ×2 (07:42→17:08)
[2016-12-15 09:20] LABS: HEMATOCRIT 34.1 % (37-47); MEAN CELL VOLUME 95.5 fL (80-100); MEAN CORPUSCULAR HEMOGLOBIN 29.4 pg (25-34); MEAN CORPUSCULAR HGB CONC 30.8 g/dl (32-36); MEAN PLATELET VOLUME 9.3 fL (7.4-10.4); PLATELET COUNT 237 K/uL (130-400); RED BLOOD COUNT 3.57 M/uL (4.2-5.4); WHITE BLOOD COUNT 8.92 K/uL (4.8-10.8)
[2016-12-15 09:47] LABS: BUN/CREATININE RATIO 9.6 (10-20); CALCIUM 8.4 mg/dl (8.5-10.1); CREATININE 0.64 mg/dl (0.60-1.20); MAGNESIUM 2.1 mg/dl (1.8-2.4); POTASSIUM 3.7 mmol/L (3.5-5.1)
[2016-12-15] MEDS: hydrOXYzine HCL 25 MG TAB PO SCH (11:56)
[2016-12-15] MEDS: SODIUM CHLORIDE 0.9% IV SCH (11:56)
[2016-12-15] MEDS: DAPTOMYCIN IV SCH (11:56)
--- NOTE | 2016-12-15 12:46 | Hospitalist Progress Note ---
Hospitalist Progress Note Date of Service Dec 15, 2016. Subjective Pt evaluation today including: conversation w/ patient, physical exam, chart review, lab review, review of studies, review of inpatient medication list Patient states she is feeling well. +fever/chills overnight. +decreased appetite: ate a little of breakfast this AM. Patient denies any sweats, lightheadedness, dizziness, vision changes, CP, palpitations, edema, SOB, wheezing, cough, abdominal pain, nausea, vomiting, diarrhea, urinary symptoms, melena, numbness/tingling, weakness, muscle/joint pain, anxiety/depression, active bleeding. Medications Current Inpatient Medications Medications (Trade) Dose Ordered Sig/Brenna Route Start Time Stop Time Status Last Admin Dose Admin Acetaminophen (Tylenol Tab) 650 mg Q4H PRN PO 12/14/16 14:30 01/13/17 14:29 Al Hydrox/Mg Hydrox/Simethicone (Maalox Max Susp) 15 ml Q4H PRN PO 12/14/16 14:30 01/13/17 14:29 Magnesium Hydroxide (Milk Of Magnesia Susp) 30 ml Q6H PRN PO 12/14/16 14:30 01/13/17 14:29 Polyethylene (Miralax Powder Packet) 17 gm DAILY PRN PO 12/14/16 14:30 01/13/17 14:29 Ondansetron HCl (Zofran Inj) 4 mg Q6H PRN IV 12/14/16 14:30 01/13/17 14:29 Benzonatate (Tessalon Perles Cap) 100 mg TID PRN PO 12/14/16 14:30 01/13/17 14:29 Clonazepam (Klonopin Tab) 0.5 mg BID PO 12/14/16 21:00 01/13/17 20:59 12/15/16 07:41 0.5 MG Cyanocobalamin (Vitamin B-12 Tab) 500 mcg DAILY PO 12/15/16 09:00 01/14/17 08:59 12/15/16 07:40 500 MCG Salmeterol Xinafoate/ Fluticasone (Advair Diskus 500/50 Inh) 1 puff BID INH 12/14/16 21:00 01/13/17 20:59 12/15/16 07:40 1 PUFF Gabapentin (Neurontin Cap) 300 mg TID PO 12/14/16 21:00 01/13/17 20:59 12/15/16 07:40 300 MG Hydroxyzine HCl (Vistaril Tab) 25 mg QD@1200 PO 12/15/16 12:00 01/14/17 11:59 12/15/16 11:56 25 MG Hyoscyamine Sulfate (Levsin Tab) 0.125 mg QID PO 12/14/16 17:00 01/13/17 16:59 12/15/16 11:56 0.125 MG Levothyroxine Sodium (Synthroid Tab) 25 mcg DAILYBB PO 12/15/16 06:30 01/14/17 06:59 12/15/16 06:06 25 MCG [place] Carbonate (Eskalith Cr Tab) 450 mg QAM PO 12/15/16 09:00 01/14/17 08:59 12/15/16 07:41 450 MG Meclizine HCl (Antivert Tab) 25 mg TID PRN PO 12/14/16 14:30 01/13/17 14:29 Montelukast Sodium (Singulair Tab) 10 mg HS PO 12/14/16 21:00 01/13/17 20:59 12/14/16 21:06 10 MG Nortriptyline HCl (Pamelor Cap) 100 mg HS PO 12/14/16 21:00 01/13/17 20:59 12/14/16 21:03 100 MG Ranitidine HCl (zANTac TAB) 150 mg HS PO 12/14/16 21:00 01/13/17 20:59 12/14/16 21:04 150 MG Risperidone (Risperdal Tab) 1 mg QAM PO 12/15/16 09:00 01/14/17 08:59 12/15/16 07:40 1 MG Risperidone (Risperdal Tab) 2 mg QPM PO 12/14/16 21:00 01/13/17 20:59 12/14/16 21:05 2 MG Rivaroxaban (Xarelto Tab) 20 mg HS PO 12/14/16 21:00 01/13/17 20:59 12/14/16 21:04 20 MG Topiramate (Topamax Tab) 75 mg BID PRN PO 12/14/16 14:30 01/13/17 14:29 Tramadol HCl (Ultram Tab) 50 mg TID PRN PO 12/14/16 14:30 01/13/17 14:29 Albuterol (Ventolin Hfa Inhaler) 2 puffs Q4H PRN INH 12/14/16 15:15 01/13/17 15:14 Cholecalciferol (Vitamin D Tab) 2,000 inter.unit DAILY PO 12/15/16 09:00 01/14/17 08:59 12/15/16 07:40 2,000 INTER.UNIT Miscellaneous Information (Order Awaiting Action) 1 ea QS N/A 12/14/16 16:00 01/13/17 15:59 Ferrous Sulfate (Feosol Tab) 325 mg BIDM PO 12/14/16 17:00 01/13/17 17:59 12/15/16 07:42 325 MG Hydroxyzine HCl (Vistaril Tab) 25 mg Q8H PRN PO 12/14/16 15:15 01/13/17 15:14 [place] Carbonate ([place] Carbonate Tab) 600 mg QDD PO 12/14/16 17:00 01/13/17 17:59 12/14/16 17:18 600 MG Miconazole Nitrate (Desenex Powder) 1 appln TID PRN EXT 12/14/16 15:15 01/13/17 15:14 12/14/16 21:02 1 APPLN Sodium Chloride 1,000 ml @ 100 mls/hr Q10H IV 12/14/16 14:30 01/13/17 14:29 12/15/16 10:47 100 MLS/HR Daptomycin 630 mg/ Sodium Chloride 62.6 ml @ 100 mls/hr Q24H IV 12/15/16 12:00 12/25/16 11:59 12/15/16 11:56 100 MLS/HR Lactobacillus Acidophilus (Floranex Tab) 4 tab TIDM PO 12/14/16 17:00 01/13/17 17:59 12/15/16 11:57 4 TAB Ceftolozane/ Tazobactam 1.5 gm/ Dextrose 111.4 ml @ 111.4 mls/ hr Q8H IV 12/14/16 22:00 12/24/16 13:59 12/15/16 06:05 111.4 MLS/HR Benztropine Mesylate (Cogentin Tab) 1 mg BID PO 12/14/16 21:00 01/13/17 20:59 12/15/16 07:41 1 MG Ipratropium [place] (Atrovent 0.02% 0.5MG/2.5ML Neb) 0.5 mg Q2H PRN INH 12/14/16 15:45 01/13/17 15:44 Levalbuterol (Xopenex 1.25MG/ 0.5ML Neb) 1.25 mg Q2H PRN INH 12/14/16 15:45 01/13/17 15:44 Objective Vital Signs Date Time Temp Pulse Resp B/P (MAP) Pulse Ox O2 Delivery O2 Flow Rate FiO2 12/15/16 08:00 Room Air 12/15/16 07:06 36.9 87 18 120/81 (94) 96 Room Air 12/15/16 00:30 Room Air 12/15/16 00:27 36.8 94 18 93/63 (73) 92 Room Air 12/14/16 19:24 Room Air 12/14/16 16:17 36.7 92 20 115/72 (86) 95 Room Air 12/14/16 15:37 100 18 94/64 98 12/14/16 14:22 99 18 104/67 97 Room Air 12/14/16 12:33 93 18 116/71 97 Room Air Physical Exam General Appearance: no apparent distress, + obese Eyes: normal inspection, PERRL ENT: hearing grossly normal Neck: supple Respiratory/Chest: lungs clear, no respiratory distress, no accessory muscle use Cardiovascular: regular rate, rhythm Abdomen: normal bowel sounds, non tender, soft Extremities: + pertinent finding (bilateral BKA; right stump wound dressed in clean dressing; left stump wound w/ sutures intact, noted bruising and erythema around wound site) Neurologic/Psychiatric: alert, normal mood/affect, oriented x 3 Skin: normal color, warm/dry, no rash Laboratory Results Last 24 Hours Test 12/15/16 08:48 White Blood Count 8.92 K/uL Red Blood Count 3.57 M/uL Hemoglobin 10.5 g/dL Hematocrit 34.1 % Mean Corpuscular Volume 95.5 fL Mean Corpuscular Hemoglobin 29.4 pg Mean Corpuscular Hemoglobin Concent 30.8 g/dl RDW Standard Deviation 59.1 fL RDW Coefficient of Variation 17.0 % Platelet Count 237 K/uL Mean Platelet Volume 9.3 fL Sodium Level 145 mmol/L Potassium Level 3.7 mmol/L Chloride Level 118 mmol/L Carbon Dioxide Level 23 mmol/L Anion Gap 4.0 mmol/L Blood Urea Nitrogen 6 mg/dl Creatinine 0.64 mg/dl Est Creatinine Clear Calc Drug Dose 105.2 ml/min Estimated GFR () 139.8 Estimated GFR (Non- 120.6 BUN/Creatinine Ratio 9.6 Random Glucose 116 mg/dl Calcium Level 8.4 mg/dl Magnesium Level 2.1 mg/dl Assessment and Plan Ms. 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 Stitches placed for a traumatic laceration on December 08 L Amputation Stump Cellulitis S/P Laceration (December 08): - XR without evidence of bony involvement - Daptomycin at 6 mg/kg daily (started on 12/14) - BCx pending - Consult ID - recommendations for dosing and duration for leg and MDR UTI - Consult wound, appreciate recommendations -- Xeroform and dry dressing changes daily -- f/u w/ Dr. Pak next week MDR Pseudomonas UTI with Suprapubic Catheter: - UCx- probable pseudomonas species- pending final cultures and sensitives - Zerbaxa 1.5 g IV Q8H (started on 12/14) per ID recommendations Hypokalemia- RESOLVED: Replaced w/ 40 mEq KCL x1 Pulmonary Embolism- STABLE: Tessalon perles PRN and Xarelto 20 mg HS Asthma without Exacerbation- STABLE: Inhalers and Nebs PRN, Singulair 10 mg daily Spina Bifida/Neurogenic Bowel and Bladder S/P Suprapubic Catheter: - Levsin 0.125 mg QID - Per patient does, does daily saline flushes w/ 500 cc- nursing staff made aware and order placed Hydrocephalus S/P PHYSICIAN LIAISON Shunt: CT without evidence of acute changes Bipolar Disorder with Psychotic Features: STABLE - Reports continued intermittent hallucinations - follows with Dr. Goode with recent med changes - Cogentin 1 mg BID, [place] 250 mg AM and 600 PM, Pamelor 100 mg HS, Risperidone 1 mg AM and 2 mg PM, Hydroxyzine 25 mg @1200 and q8 hrs PRN Hypothyroidism: Synthroid 25 mcg daily GI Prophylaxis: Protonix 40 mg daily DVT Prophylaxis: Xarelto Code Status: LEVEL I, FULL Dispo: From home, lives w/ mother- social studies teacher consulted
[2016-12-15] MEDS: TRAMADOL HCL 50 MG TAB PO PRN ×2 (13:07→20:51)
[2016-12-15 15:17] VITALS: BP 115/77; PULSE 100; TEMP 36.4; O2SAT 97
[2016-12-15 16:20] VITALS: PULSE 92; O2SAT 98
[2016-12-15] MEDS: LITHIUM CARBONATE 300 MG TAB PO SCH (17:09)
[2016-12-15 19:00] VITALS: O2SAT 98
--- NOTE | 2016-12-15 20:36 | Infectious Disease Progress Nt ---
Progress Note Date of Service Dec 15, 2016. Subjective Pt evaluation today including: conversation w/ patient, physical exam, chart review, lab review, review of studies, conversation w/ weight loss sales consultant, review of inpatient medication list Had fever overnight, temp down this morning. Feeling somewhat better. Able to eat small amount of breakfast. No new specific complaints. All Other Systems: Reviewed and Negative Medications ----- RUN DATE: 12/15/16 [facility] PAGE 1 RUN TIME: 0837 Specimen Inquiry PATIENT: LUCERO BERRIOS LOC: C.MS2W U # : [id number] AGE/SX: 31/F ROOM: [facility] REG : 12/14/[address]: Rudy Vazquez D.OMike : 1985 BED: 2 DIS : STATUS: ADM IN TLOC: SPEC #: [id number] AUGUSTUS: 12/14/16-1214 STATUS: RES REQ #: [id number] RECD: 12/14/[address]: Dariana Swift PA-C SOURCE: URINE CATH ENTR: 12/14/16-1336 [facility] DR: George Cheng M.D. SPDESC: Tej Brewer M.D. Mattern, Laura Daley, P.A. ORDERED: CULTURE UR CATH Procedure Result Verified Site URINE CULTURE Preliminary 12/15/16-37 Organism 1 PROBABLE PSEUDOMONAS SPECIES COLONY COUNT >100,000 CFU/ml SENS SENSITIVITY TO FOLLOW Current Inpatient Medications Medications (Trade) Dose Ordered Sig/Brenna Route Start Time Stop Time Status Last Admin Dose Admin Acetaminophen (Tylenol Tab) 650 mg Q4H PRN PO 12/14/16 14:30 01/13/17 14:29 Al Hydrox/Mg Hydrox/Simethicone (Maalox Max Susp) 15 ml Q4H PRN PO 12/14/16 14:30 01/13/17 14:29 Magnesium Hydroxide (Milk Of Magnesia Susp) 30 ml Q6H PRN PO 12/14/16 14:30 01/13/17 14:29 Polyethylene (Miralax Powder Packet) 17 gm DAILY PRN PO 12/14/16 14:30 01/13/17 14:29 Ondansetron HCl (Zofran Inj) 4 mg Q6H PRN IV 12/14/16 14:30 01/13/17 14:29 Benzonatate (Tessalon Perles Cap) 100 mg TID PRN PO 12/14/16 14:30 01/13/17 14:29 Clonazepam (Klonopin Tab) 0.5 mg BID PO 12/14/16 21:00 01/13/17 20:59 12/15/16 07:41 0.5 MG Cyanocobalamin (Vitamin B-12 Tab) 500 mcg DAILY PO 12/15/16 09:00 01/14/17 08:59 12/15/16 07:40 500 MCG Salmeterol Xinafoate/ Fluticasone (Advair Diskus 500/50 Inh) 1 puff BID INH 12/14/16 21:00 01/13/17 20:59 12/15/16 07:40 1 PUFF Gabapentin (Neurontin Cap) 300 mg TID PO 12/14/16 21:00 01/13/17 20:59 12/15/16 13:08 300 MG Hydroxyzine HCl (Vistaril Tab) 25 mg QD@1200 PO 12/15/16 12:00 01/14/17 11:59 12/15/16 11:56 25 MG Hyoscyamine Sulfate (Levsin Tab) 0.125 mg QID PO 12/14/16 17:00 01/13/17 16:59 12/15/16 17:09 0.125 MG Levothyroxine Sodium (Synthroid Tab) 25 mcg DAILYBB PO 12/15/16 06:30 01/14/17 06:59 12/15/16 06:06 25 MCG [place]man Carbonate (Eskalith Cr Tab) 450 mg QAM PO 12/15/16 09:00 01/14/17 08:59 12/15/16 07:41 450 MG Meclizine HCl (Antivert Tab) 25 mg TID PRN PO 12/14/16 14:30 01/13/17 14:29 Montelukast Sodium (Singulair Tab) 10 mg HS PO 12/14/16 21:00 01/13/17 20:59 12/14/16 21:06 10 MG Nortriptyline HCl (Pamelor Cap) 100 mg HS PO 12/14/16 21:00 01/13/17 20:59 12/14/16 21:03 100 MG Ranitidine HCl (zANTac TAB) 150 mg HS PO 12/14/16 21:00 01/13/17 20:59 12/14/16 21:04 150 MG Risperidone (Risperdal Tab) 1 mg QAM PO 12/15/16 09:00 01/14/17 08:59 12/15/16 07:40 1 MG Risperidone (Risperdal Tab) 2 mg QPM PO 12/14/16 21:00 01/13/17 20:59 12/14/16 21:05 2 MG Rivaroxaban (Xarelto Tab) 20 mg HS PO 12/14/16 21:00 01/13/17 20:59 12/14/16 21:04 20 MG Topiramate (Topamax Tab) 75 mg BID PRN PO 12/14/16 14:30 01/13/17 14:29 Tramadol HCl (Ultram Tab) 50 mg TID PRN PO 12/14/16 14:30 01/13/17 14:29 12/15/16 13:07 50 MG Albuterol (Ventolin Hfa Inhaler) 2 puffs Q4H PRN INH 12/14/16 15:15 01/13/17 15:14 Cholecalciferol (Vitamin D Tab) 2,000 inter.unit DAILY PO 12/15/16 09:00 01/14/17 08:59 12/15/16 07:40 2,000 INTER.UNIT Miscellaneous Information (Order Awaiting Action) 1 ea QS N/A 12/14/16 16:00 01/13/17 15:59 Ferrous Sulfate (Feosol Tab) 325 mg BIDM PO 12/14/16 17:00 01/13/17 17:59 12/15/16 17:08 325 MG Hydroxyzine HCl (Vistaril Tab) 25 mg Q8H PRN PO 12/14/16 15:15 01/13/17 15:14 Buckman Carbonate (Buckman Carbonate Tab) 600 mg QDD PO 12/14/16 17:00 01/13/17 17:59 12/15/16 17:09 600 MG Miconazole Nitrate (Desenex Powder) 1 appln TID PRN EXT 12/14/16 15:15 01/13/17 15:14 12/14/16 21:02 1 APPLN Sodium Chloride 1,000 ml @ 100 mls/hr Q10H IV 12/14/16 14:30 01/13/17 14:29 12/15/16 10:47 100 MLS/HR Daptomycin 630 mg/ Sodium Chloride 62.6 ml @ 100 mls/hr Q24H IV 12/15/16 12:00 12/25/16 11:59 12/15/16 11:56 100 MLS/HR Lactobacillus Acidophilus (Floranex Tab) 4 tab TIDM PO 12/14/16 17:00 01/13/17 17:59 12/15/16 17:08 4 TAB Ceftolozane/ Tazobactam 1.5 gm/ Dextrose 111.4 ml @ 111.4 mls/ hr Q8H IV 12/14/16 22:00 12/24/16 13:59 12/15/16 14:05 111.4 MLS/HR Benztropine Mesylate (Cogentin Tab) 1 mg BID PO 12/14/16 21:00 01/13/17 20:59 12/15/16 07:41 1 MG Ipratropium [place] (Atrovent 0.02% 0.5MG/2.5ML Neb) 0.5 mg Q2H PRN INH 12/14/16 15:45 01/13/17 15:44 12/15/16 16:43 0.5 MG Levalbuterol (Xopenex 1.25MG/ 0.5ML Neb) 1.25 mg Q2H PRN INH 12/14/16 15:45 01/13/17 15:44 12/15/16 16:43 1.25 MG Pantoprazole Sodium (Protonix Tab) 40 mg QAM PO 12/16/16 09:00 01/15/17 08:59 Objective Vital Signs Date Time Temp Pulse Resp B/P (MAP) Pulse Ox O2 Delivery O2 Flow Rate FiO2 12/15/16 19:00 98 Room Air 12/15/16 16:20 92 16 98 Room Air 12/15/16 16:00 Room Air 12/15/16 15:17 36.4 100 20 115/77 (90) 97 Room Air 12/15/16 08:00 Room Air 12/15/16 07:06 36.9 87 18 120/81 (94) 96 Room Air 12/15/16 00:30 Room Air 12/15/16 00:27 36.8 94 18 93/63 (69) 92 Room Air Physical Exam General Appearance: WD/WN, no apparent distress, + obese Eyes: normal inspection, sclerae normal ENT: normal ENT inspection, pharynx normal Neck: supple, no adenopathy, trachea midline Respiratory/Chest: lungs clear, normal breath sounds, no respiratory distress Cardiovascular: regular rate, rhythm, no gallop, no murmur Abdomen: normal bowel sounds, non tender, soft, no organomegaly Extremities: non-tender, no calf tenderness Neurologic/Psychiatric: alert, oriented x 3 Skin: normal color, no rash, + pertinent finding (Erythema around the laceration left stump) Lymphatic: no adenopathy Laboratory Results --------- RUN DATE: 12/16/16 [facility] LAB PAGE 1 RUN TIME: 658 Specimen Inquiry PATIENT: LUCERO BERRIOS LOC: EdiMS2W U # : [id number] AGE/SX: 31/F ROOM: [facility] REG : 12/14/[address]: Rduy Vazquez D.O. : 1985 BED: 2 DIS : STATUS: ADM IN TLOC: SPEC #: [id number] AUGUSTUS: 12/14/16-1215 STATUS: RES REQ #: [id number] RECD: 12/14/16-[address]: Dariana Swift PA-C SOURCE: URINE CATH ENTR: 12/14/16-[address]: George Cheng M.D. [facility]: Tej Brewer M.D. Mattern, Joy C., P.AMike ORDERED: CULTURE UR CATH Procedure Result Verified Site URINE CULTURE Preliminary 12/16/16-0659 Organism 1 PSEUDOMONAS AERUGINOSA COLONY COUNT >100,000 CFU/ml SENS SENSITIVITY TO FOLLOW 1. PSEUDOMONAS AERUGINOSA Target Route Dose RX AB Cost M.I.C. IQ ------ ----- ------ -- ------ -------- - ------ CEFTAZIDIME S 8 CEFEPIME S 8 IMIPENEM R >8 AZTREONAM R >16 GENTAMICIN I 8 TOBRAMYCIN S <=4 AMIKACIN S <=16 CIPROFLOXACIN R >2 LEVOFLOXACIN R >4 PIP/TAZO S <=16 S = SENSITIVE I = INTERMEDIATE R = RESISTANT END OF REPORT Last 24 Hours Test 12/15/16 08:48 White Blood Count 8.92 K/uL Red Blood Count 3.57 M/uL Hemoglobin 10.5 g/dL Hematocrit 34.1 % Mean Corpuscular Volume 95.5 fL Mean Corpuscular Hemoglobin 29.4 pg Mean Corpuscular Hemoglobin Concent 30.8 g/dl RDW Standard Deviation 59.1 fL RDW Coefficient of Variation 17.0 % Platelet Count 237 K/uL Mean Platelet Volume 9.3 fL Sodium Level 145 mmol/L Potassium Level 3.7 mmol/L Chloride Level 118 mmol/L Carbon Dioxide Level 23 mmol/L Anion Gap 4.0 mmol/L Blood Urea Nitrogen 6 mg/dl Creatinine 0.64 mg/dl Est Creatinine Clear Calc Drug Dose 105.2 ml/min Estimated GFR () 139.8 Estimated GFR (Non- 120.6 BUN/Creatinine Ratio 9.6 Random Glucose 116 mg/dl Calcium Level 8.4 mg/dl Magnesium Level 2.1 mg/dl Assessment and Plan Infection at LLE laceration site as well as UTI with MDR Pseudomonas. As discussed, patient to be treated with daptomycin and ceftolozone-tazobactam, likely in range of 7 days. Await final blood culture. Will follow.
[2016-12-15] MEDS: RIVAROXABAN 20 MG TAB PO SCH (20:53)
[2016-12-15] MEDS: NORTRIPTYLINE HCL 25 MG CAP PO SCH (20:56)
[2016-12-15] MEDS: RANITIDINE HCL 150 MG TAB PO SCH (20:56)
[2016-12-15] MEDS: MONTELUKAST SOD 10 MG TAB PO SCH (20:56)
[2016-12-15 23:07] VITALS: BP 103/69; PULSE 99; TEMP 36.8; O2SAT 98
[2016-12-16] MEDS: LEVOTHYROXINE 25 MCG TAB PO SCH (06:36)
[2016-12-16] MEDS: DEXTROSE 5% IV SCH ×3 (06:36→22:34)
[2016-12-16] MEDS: TAZOBACTAM IV SCH ×3 (06:36→22:34)
[2016-12-16] MEDS: CEFTOLOZANE IV SCH ×3 (06:36→22:34)
[2016-12-16] MEDS: SODIUM CHLORIDE 0.9% 1000ML 1,000 ML IV SCH (06:36)
[2016-12-16 07:13] VITALS: BP 96/54; PULSE 88; TEMP 36.8; O2SAT 97
[2016-12-16] MEDS: LITHIUM CARBONATE 450 MG TABCR PO SCH (07:47)
[2016-12-16] MEDS: FERROUS SULFATE 325 MG TAB PO SCH ×2 (07:47→17:38)
[2016-12-16] MEDS: GABAPENTIN 300 MG CAP PO SCH ×3 (07:48→20:58)
[2016-12-16] MEDS: CHOLECALCIFEROL 1000 INTER.UNIT TAB PO SCH (07:48)
[2016-12-16] MEDS: RISPERIDONE 1 MG TAB PO SCH ×2 (07:49→20:56)
[2016-12-16] MEDS: BENZTROPINE MESYLATE 1 MG TAB PO SCH ×2 (07:49→20:55)
[2016-12-16] MEDS: CYANOCOBALAMIN 500 MCG TAB (VIT B-12) PO SCH (07:49)
[2016-12-16] MEDS: HYOSCYAMINE SULFATE 0.125 MG SL TAB PO SCH ×4 (07:50→21:00)
[2016-12-16] MEDS: PANTOprazole SOD 40 MG TAB PO SCH (07:50)
[2016-12-16] MEDS: FLUTICASONE/SALMETEROL (ADVAIR) 500/50 INH 14 PUFF INH SCH ×2 (07:51→20:54)
[2016-12-16] MEDS: LACTOBACILLUS ACIDOPHILUS (FLORANEX) TAB PO SCH ×3 (07:51→17:40)
[2016-12-16] MEDS: CLONAZEPAM 0.5 MG TAB PO SCH ×2 (07:56→20:54)
[2016-12-16 08:20] LABS: HEMATOCRIT 35.7 % (37-47); MEAN CELL VOLUME 95.7 fL (80-100); MEAN CORPUSCULAR HEMOGLOBIN 29.8 pg (25-34); MEAN CORPUSCULAR HGB CONC 31.1 g/dl (32-36); MEAN PLATELET VOLUME 9.5 fL (7.4-10.4); PLATELET COUNT 258 K/uL (130-400); RED BLOOD COUNT 3.73 M/uL (4.2-5.4); WHITE BLOOD COUNT 8.87 K/uL (4.8-10.8)
[2016-12-16 08:50] LABS: BUN/CREATININE RATIO 6.5 (10-20); CALCIUM 8.6 mg/dl (8.5-10.1); CREATININE 0.68 mg/dl (0.60-1.20); MAGNESIUM 2.3 mg/dl (1.8-2.4); POTASSIUM 3.8 mmol/L (3.5-5.1)
[2016-12-16] MEDS ORDERED: MoRPHine SULFATE 4 MG/ML 1 ML CARP IV PRN (11:00)
[2016-12-16] MEDS ORDERED: MoRPHine SULFATE 2 MG/ML CARP IV PRN (11:00)
--- NOTE | 2016-12-16 12:59 | Wound Consultation: Inpatient ---
Wound Consultation Date of Consultation: Dec 15, 2016. Attending Physician: Rudy Vazquez D.O. Reason for Consultation: Cellulitis left lower extremity amputation site Past Medical/Surgical History Patient states she lacerated the amputation site on her left lower extremity approximately 6 days ago. Patient states that she's had increased swelling and redness and pain in the area over the past 48 hours. She currently denies any fever chills or night sweats patient denies any chest pain shortness of breath abdominal discomfort nausea or vomiting. Patient is a patient of the wound center for a stage II pressure ulcer to the right amputation site region. Denies any problems with this area. Family History Cancer Diabetes mellitus Lung disease Social History Smoking Status: Never Smoker Smokeless Tobacco Use: No Alcohol Use: none Drug Use: none Marital Status: single Housing Status: lives with family Occupation Status: disabled Allergies Coded Allergies: Adhesives (Verified Allergy, Intermediate, TAPE- HIVES, 12/14/16) Ceftriaxone (Verified Allergy, Intermediate, rash, 12/14/16) Chlorhexidine (Verified Allergy, Intermediate, RASH, 12/14/16) Ciprofloxacin (Verified Allergy, Intermediate, hives, 12/14/16) Latex (Verified Allergy, Intermediate, hives, 12/14/16) Levofloxacin (Verified Allergy, Intermediate, rash, 12/14/16) Linezolid (Verified Allergy, Intermediate, rash, 12/14/16) Piperacillin (Verified Allergy, Intermediate, SEVERE RASH, HIVES, 12/14/16) Tazobactam (Verified Allergy, Intermediate, SEVERE RASH, HIVES, 12/14/16) Vancomycin (Verified Allergy, Intermediate, rash, 12/14/16) Tobramycin (Verified Allergy, Mild, MILD RASH ON ARM, RED FACE, 12/14/16) IMPROVED AFTER BENADRYL, TAKING REST OF DOSE Amikacin (Verified Allergy, Unknown, PER DR ROBINS,RXN WAS TO ZOSYN NOT AMKrash;hives, 12/14/16) Sulfamethoxazole w/Trimethoprim (Verified Allergy, Unknown, Hives, 12/14/16 ) Can be pretreated with 10mg Zytrec 45 min prior to admin Home Medications Scheduled Benztropine Mesylate (Benztropine Mesylate), 1 MG PO BID Cholecalciferol (Vitamin D), 2,000 INTER.UNIT PO DAILY Clonazepam (Klonopin), 0.5 MG PO BID Cyanocobalamin (Vitamin B-12), 500 MCG PO DAILY Ferrous Sulfate (Ferrous Sulfate), 325 MG PO BID Fluticasone Prop/Salmeterol (Advair Diskus 500/50 60 Dose), 1 PUFF INH BID Gabapentin (Gabapentin), 300 MG PO TID Hydroxyzine Hcl (Atarax), 25 MG PO QD@1200 Hyoscyamine Sulfate (Levsin), 0.125 MG PO QID Levothyroxine Sodium (Levothyroxine Sodium), 25 MCG PO DAILY Linaclotide (Linzess), 290 MCG PO QAM Diamond Carbonate (Diamond Carbonate), 600 MG PO QPM Diamond Carbonate Er (Lithobid Ext Rel), 450 MG PO QAM Montelukast Sod (Montelukast Sodium), 10 MG PO HS Multiple Vitamin (Multivitamin), 1 TAB PO DAILY Nortriptyline Hcl (Pamelor), 75 MG PO HS Nortriptyline Hcl (Pamelor), 25 MG PO HS Pantoprazole (Pantoprazole Sodium), 40 MG PO QAM Ranitidine Hcl (Zantac), 150 MG PO HS Risperidone (Risperidone), 1 MG PO QAM Risperidone (Risperdal), 2 MG PO QPM Rivaroxaban (Xarelto), 20 MG PO UD Sennosides (Senna Lax), 8.6 MG PO DAILY Wound Dressings (Hydrofera Blue Foam Dress), 1 EA EXT UD Scheduled PRN Albuterol Sulfate (Proair Respiclick), 2 PUFFS INH Q4-6HRS PRN for SOB/Wheezing Benzonatate (Tessalon Perles), 100 MG PO TID PRN for Cough Dihydroergotamine Mesylate (Migranal), 1 SPRAY EDIE UD PRN for Migraine Docusate Sodium (Dulcolax Stool Softener), 100 MG PO BID PRN for Constipation Hydroxyzine HCl (Hydroxyzine Pamoate), 25 MG PO Q8 PRN for Anxiety Indomethacin (Indomethacin), 25 MG PO TID PRN for Headache Levalbuterol (Levalbuterol HCl), 3 ML NEB Q6-8HRS PRN for Shortness of Breath Meclizine Hcl (Meclizine Hcl), 25 MG PO TID PRN for Dizziness or Vertigo Miconazole Nitrate (Topical) (Miconazole Nitrate), 1 APPLN TOP TID PRN for Rash Ondasetron Odt (Zofran Odt), 4 MG SL Q8 PRN for Nausea Topiramate (Topiramate), 75 MG PO BID PRN for Headache Tramadol HCl (Tramadol HCl), 50 MG PO TID PRN for Pain Inpatient Medications Current Inpatient Medications Medications (Trade) Dose Ordered Sig/Brenna Route Start Time Stop Time Status Last Admin Dose Admin Acetaminophen (Tylenol Tab) 650 mg Q4H PRN PO 12/14/16 14:30 01/13/17 14:29 Al Hydrox/Mg Hydrox/Simethicone (Maalox Max Susp) 15 ml Q4H PRN PO 12/14/16 14:30 01/13/17 14:29 Magnesium Hydroxide (Milk Of Magnesia Susp) 30 ml Q6H PRN PO 12/14/16 14:30 01/13/17 14:29 Polyethylene (Miralax Powder Packet) 17 gm DAILY PRN PO 12/14/16 14:30 01/13/17 14:29 Ondansetron HCl (Zofran Inj) 4 mg Q6H PRN IV 12/14/16 14:30 01/13/17 14:29 Benzonatate (Tessalon Perles Cap) 100 mg TID PRN PO 12/14/16 14:30 01/13/17 14:29 Clonazepam (Klonopin Tab) 0.5 mg BID PO 12/14/16 21:00 01/13/17 20:59 12/16/16 07:56 0.5 MG Cyanocobalamin (Vitamin B-12 Tab) 500 mcg DAILY PO 12/15/16 09:00 01/14/17 08:59 12/16/16 07:49 500 MCG Salmeterol Xinafoate/ Fluticasone (Advair Diskus 500/50 Inh) 1 puff BID INH 12/14/16 21:00 01/13/17 20:59 12/16/16 07:51 1 PUFF Gabapentin (Neurontin Cap) 300 mg TID PO 12/14/16 21:00 01/13/17 20:59 12/16/16 07:48 300 MG Hydroxyzine HCl (Vistaril Tab) 25 mg QD@1200 PO 12/15/16 12:00 01/14/17 11:59 12/15/16 11:56 25 MG Hyoscyamine Sulfate (Levsin Tab) 0.125 mg QID PO 12/14/16 17:00 01/13/17 16:59 12/16/16 07:50 0.125 MG Levothyroxine Sodium (Synthroid Tab) 25 mcg DAILYBB PO 12/15/16 06:30 01/14/17 06:59 12/16/16 06:36 25 MCG Diamond Carbonate (Eskalith Cr Tab) 450 mg QAM PO 12/15/16 09:00 01/14/17 08:59 12/16/16 07:47 450 MG Meclizine HCl (Antivert Tab) 25 mg TID PRN PO 12/14/16 14:30 01/13/17 14:29 Montelukast Sodium (Singulair Tab) 10 mg HS PO 12/14/16 21:00 01/13/17 20:59 12/15/16 20:56 10 MG Nortriptyline HCl (Pamelor Cap) 100 mg HS PO 12/14/16 21:00 01/13/17 20:59 12/15/16 20:56 100 MG Ranitidine HCl (zANTac TAB) 150 mg HS PO 12/14/16 21:00 01/13/17 20:59 12/15/16 20:56 150 MG Risperidone (Risperdal Tab) 1 mg QAM PO 12/15/16 09:00 01/14/17 08:59 12/16/16 07:49 1 MG Risperidone (Risperdal Tab) 2 mg QPM PO 12/14/16 21:00 01/13/17 20:59 12/15/16 20:52 2 MG Rivaroxaban (Xarelto Tab) 20 mg HS PO 12/14/16 21:00 01/13/17 20:59 12/15/16 20:53 20 MG Topiramate (Topamax Tab) 75 mg BID PRN PO 12/14/16 14:30 01/13/17 14:29 12/15/16 22:42 75 MG Tramadol HCl (Ultram Tab) 50 mg TID PRN PO 12/14/16 14:30 01/13/17 14:29 12/15/16 20:51 50 MG Albuterol (Ventolin Hfa Inhaler) 2 puffs Q4H PRN INH 12/14/16 15:15 01/13/17 15:14 Cholecalciferol (Vitamin D Tab) 2,000 inter.unit DAILY PO 12/15/16 09:00 01/14/17 08:59 12/16/16 07:48 2,000 INTER.UNIT Miscellaneous Information (Order Awaiting Action) 1 ea QS N/A 12/14/16 16:00 01/13/17 15:59 Ferrous Sulfate (Feosol Tab) 325 mg BIDM PO 12/14/16 17:00 01/13/17 17:59 12/16/16 07:47 325 MG Hydroxyzine HCl (Vistaril Tab) 25 mg Q8H PRN PO 12/14/16 15:15 01/13/17 15:14 12/15/16 23:28 25 MG Diamond Carbonate (Diamond Carbonate Tab) 600 mg QDD PO 12/14/16 17:00 01/13/17 17:59 12/15/16 17:09 600 MG Miconazole Nitrate (Desenex Powder) 1 appln TID PRN EXT 12/14/16 15:15 01/13/17 15:14 12/14/16 21:02 1 APPLN Daptomycin 630 mg/ Sodium Chloride 62.6 ml @ 100 mls/hr Q24H IV 12/15/16 12:00 12/25/16 11:59 12/15/16 11:56 100 MLS/HR Lactobacillus Acidophilus (Floranex Tab) 4 tab TIDM PO 12/14/16 17:00 01/13/17 17:59 12/16/16 07:51 4 TAB Ceftolozane/ Tazobactam 1.5 gm/ Dextrose 111.4 ml @ 111.4 mls/ hr Q8H IV 12/14/16 22:00 12/24/16 13:59 12/16/16 06:36 111.4 MLS/HR Benztropine Mesylate (Cogentin Tab) 1 mg BID PO 12/14/16 21:00 01/13/17 20:59 12/16/16 07:49 1 MG Ipratropium [place] (Atrovent 0.02% 0.5MG/2.5ML Neb) 0.5 mg Q2H PRN INH 12/14/16 15:45 01/13/17 15:44 12/15/16 16:43 0.5 MG Levalbuterol (Xopenex 1.25MG/ 0.5ML Neb) 1.25 mg Q2H PRN INH 12/14/16 15:45 01/13/17 15:44 12/15/16 16:43 1.25 MG Pantoprazole Sodium (Protonix Tab) 40 mg QAM PO 12/16/16 09:00 01/15/17 08:59 12/16/16 07:50 40 MG Morphine Sulfate (MoRPHine SULFATE INJ) 2 mg Q4 PRN IV 12/16/16 11:00 12/30/16 10:59 Morphine Sulfate (MoRPHine SULFATE INJ) 4 mg Q4 PRN IV 12/16/16 11:00 12/30/16 10:59 Review of Systems General: The patient is sitting in a hospital bed in no distress. Alert, cooperative and appropriate to all questions. HEENT: Pupils equal and reactive to light. Sclera clear, EOM intact. Neck: Supple, No JVD noted Chest: CTA in all [place]. No deformity Heart: RRR without murmurs, S3, S4, thrills, rubs or heaves Extremities: The sutured laceration site on the left lower extremity amputation site region shows the presence of some central black and necrotic area. There is also surrounding erythema present no active drainage or odor noted no palpable fluctuance. Minimal tenderness noted in the periphery. Neurological: Alert and oriented x3. No focal deficits. Skin: No rashes, papules, vesicles, excoriations Physical Exam Date Time Temp Pulse Resp B/P (MAP) Pulse Ox O2 Delivery O2 Flow Rate FiO2 12/16/16 08:00 Room Air 12/16/16 07:13 36.8 88 18 96/54 (68) 97 Room Air 12/16/16 00:00 Room Air 12/15/16 23:07 36.8 99 20 103/69 (80) 98 Room Air 12/15/16 19:00 98 Room Air 12/15/16 16:20 92 16 98 Room Air 12/15/16 16:00 Room Air 12/15/16 15:17 36.4 100 20 115/77 (90) 97 Room Air Laboratory Results Last 24 Hours Test 12/16/16 08:02 White Blood Count 8.87 K/uL Red Blood Count 3.73 M/uL Hemoglobin 11.1 g/dL Hematocrit 35.7 % Mean Corpuscular Volume 95.7 fL Mean Corpuscular Hemoglobin 29.8 pg Mean Corpuscular Hemoglobin Concent 31.1 g/dl RDW Standard Deviation 59.4 fL RDW Coefficient of Variation 17.2 % Platelet Count 258 K/uL Mean Platelet Volume 9.5 fL Sodium Level 145 mmol/L Potassium Level 3.8 mmol/L Chloride Level 114 mmol/L Carbon Dioxide Level 23 mmol/L Anion Gap 8.0 mmol/L Blood Urea Nitrogen 4 mg/dl Creatinine 0.68 mg/dl Est Creatinine Clear Calc Drug Dose 99.0 ml/min Estimated GFR () 137.0 Estimated GFR (Non- 118.2 BUN/Creatinine Ratio 6.5 Random Glucose 93 mg/dl Calcium Level 8.6 mg/dl Magnesium Level 2.3 mg/dl Assessment & Plan Assessment: Cellulitis with associated laceration of the left lower extremity amputation site Plan: At this time no debridement is indicated. The site will be dressed with Xeroform and gauze change daily . Patient will continue to be monitored during hospitalization and followed up in the outpatient environment.
[2016-12-16] MEDS: SODIUM CHLORIDE 0.9% IV SCH (13:13)
[2016-12-16] MEDS: DAPTOMYCIN IV SCH (13:13)
[2016-12-16] MEDS: hydrOXYzine HCL 25 MG TAB PO SCH (13:13)
[2016-12-16 14:26] VITALS: BP 98/62; PULSE 106; TEMP 36.5; O2SAT 92
--- NOTE | 2016-12-16 14:59 | Progress Note ---
Subjective Date of Service: Dec 16, 2016. Subjective Pt evaluation today including: conversation w/ patient, physical exam, lab review, conversation w/ commercial sales consultant, review of inpatient medication list Pain: left stump pain, controlled PO Intake: appetite improving Voiding: arango catheter in place patient notes that pain in left stump still there has some swelling in left hand that concerns her had a headache earlier but resolved discussed plan to continue antibiotics and follow up blood culture appreciate recommendations from Dr. Pak and Dr. Sauceda Problem List Medical Problems: (1) Acute pyelonephritis Status: Acute (2) Allergic reaction Status: Acute (3) Allergic reaction Status: Acute (4) Asthma with exacerbation Status: Acute (5) Chronic UTI (urinary tract infection) Status: Acute (6) Complicated urinary tract infection Status: Acute (7) Delusions Status: Acute (8) Gabapentin overdose Status: Acute (9) Hypokalemia Status: Acute (10) Intractable headache Status: Acute (11) Laceration Status: Acute (12) Low back pain Status: Acute (13) Lower abdominal pain Status: Acute (14) Lower abdominal pain Status: Acute (15) Mood disorder Status: Acute (16) Mood disorder Status: Acute (17) Multiple drug resistant organism (MDRO) culture positive Status: Acute (18) Nausea Status: Acute (19) Paranoia Status: Acute (20) Pelvic pain Status: Acute (21) Right flank pain Status: Acute (22) Right leg pain Status: Acute (23) Self-harming behavior Status: Acute (24) Shunt malfunction Status: Acute (25) Shunt malfunction Status: Acute (26) Suicidal ideation Status: Acute (27) Suicidal ideation Status: Acute (28) Suprapubic pain Status: Acute (29) Urinary tract infection Status: Acute (30) Urinary tract infection Status: Acute (31) Urinary tract infection Status: Acute (32) UTI (urinary tract infection) Status: Acute (33) UTI (urinary tract infection) Status: Acute (34) Weakness Status: Acute Review of Systems Constitutional: + weakness, + fatigue Cardiac: + edema (left hand) Musculoskeletal: + joint pain (left stump) All Other Systems: Reviewed and Negative Medications Current Inpatient Medications Medications (Trade) Dose Ordered Sig/Brenna Route Start Time Stop Time Status Last Admin Dose Admin Acetaminophen (Tylenol Tab) 650 mg Q4H PRN PO 12/14/16 14:30 01/13/17 14:29 Al Hydrox/Mg Hydrox/Simethicone (Maalox Max Susp) 15 ml Q4H PRN PO 12/14/16 14:30 01/13/17 14:29 Magnesium Hydroxide (Milk Of Magnesia Susp) 30 ml Q6H PRN PO 12/14/16 14:30 01/13/17 14:29 Polyethylene (Miralax Powder Packet) 17 gm DAILY PRN PO 12/14/16 14:30 01/13/17 14:29 Ondansetron HCl (Zofran Inj) 4 mg Q6H PRN IV 12/14/16 14:30 01/13/17 14:29 Benzonatate (Tessalon Perles Cap) 100 mg TID PRN PO 12/14/16 14:30 01/13/17 14:29 Clonazepam (Klonopin Tab) 0.5 mg BID PO 12/14/16 21:00 01/13/17 20:59 12/16/16 07:56 0.5 MG Cyanocobalamin (Vitamin B-12 Tab) 500 mcg DAILY PO 12/15/16 09:00 01/14/17 08:59 12/16/16 07:49 500 MCG Salmeterol Xinafoate/ Fluticasone (Advair Diskus 500/50 Inh) 1 puff BID INH 12/14/16 21:00 01/13/17 20:59 12/16/16 07:51 1 PUFF Gabapentin (Neurontin Cap) 300 mg TID PO 12/14/16 21:00 01/13/17 20:59 12/16/16 13:19 300 MG Hydroxyzine HCl (Vistaril Tab) 25 mg QD@1200 PO 12/15/16 12:00 01/14/17 11:59 12/16/16 13:13 25 MG Hyoscyamine Sulfate (Levsin Tab) 0.125 mg QID PO 12/14/16 17:00 01/13/17 16:59 12/16/16 13:13 0.125 MG Levothyroxine Sodium (Synthroid Tab) 25 mcg DAILYBB PO 12/15/16 06:30 01/14/17 06:59 12/16/16 06:36 25 MCG [place] Carbonate (Eskalith Cr Tab) 450 mg QAM PO 12/15/16 09:00 01/14/17 08:59 12/16/16 07:47 450 MG Meclizine HCl (Antivert Tab) 25 mg TID PRN PO 12/14/16 14:30 01/13/17 14:29 Montelukast Sodium (Singulair Tab) 10 mg HS PO 12/14/16 21:00 01/13/17 20:59 12/15/16 20:56 10 MG Nortriptyline HCl (Pamelor Cap) 100 mg HS PO 12/14/16 21:00 01/13/17 20:59 12/15/16 20:56 100 MG Ranitidine HCl (zANTac TAB) 150 mg HS PO 12/14/16 21:00 01/13/17 20:59 12/15/16 20:56 150 MG Risperidone (Risperdal Tab) 1 mg QAM PO 12/15/16 09:00 01/14/17 08:59 12/16/16 07:49 1 MG Risperidone (Risperdal Tab) 2 mg QPM PO 12/14/16 21:00 01/13/17 20:59 12/15/16 20:52 2 MG Rivaroxaban (Xarelto Tab) 20 mg HS PO 12/14/16 21:00 01/13/17 20:59 12/15/16 20:53 20 MG Topiramate (Topamax Tab) 75 mg BID PRN PO 12/14/16 14:30 01/13/17 14:29 12/15/16 22:42 75 MG Tramadol HCl (Ultram Tab) 50 mg TID PRN PO 12/14/16 14:30 01/13/17 14:29 12/15/16 20:51 50 MG Albuterol (Ventolin Hfa Inhaler) 2 puffs Q4H PRN INH 12/14/16 15:15 01/13/17 15:14 Cholecalciferol (Vitamin D Tab) 2,000 inter.unit DAILY PO 12/15/16 09:00 01/14/17 08:59 12/16/16 07:48 2,000 INTER.UNIT Miscellaneous Information (Order Awaiting Action) 1 ea QS N/A 12/14/16 16:00 01/13/17 15:59 Ferrous Sulfate (Feosol Tab) 325 mg BIDM PO 12/14/16 17:00 01/13/17 17:59 12/16/16 07:47 325 MG Hydroxyzine HCl (Vistaril Tab) 25 mg Q8H PRN PO 12/14/16 15:15 01/13/17 15:14 12/15/16 23:28 25 MG [place] Carbonate ([place] Carbonate Tab) 600 mg QDD PO 12/14/16 17:00 01/13/17 17:59 12/15/16 17:09 600 MG Miconazole Nitrate (Desenex Powder) 1 appln TID PRN EXT 12/14/16 15:15 01/13/17 15:14 12/14/16 21:02 1 APPLN Daptomycin 630 mg/ Sodium Chloride 62.6 ml @ 100 mls/hr Q24H IV 12/15/16 12:00 12/25/16 11:59 12/16/16 13:13 100 MLS/HR Lactobacillus Acidophilus (Floranex Tab) 4 tab TIDM PO 12/14/16 17:00 01/13/17 17:59 12/16/16 13:13 4 TAB Ceftolozane/ Tazobactam 1.5 gm/ Dextrose 111.4 ml @ 111.4 mls/ hr Q8H IV 12/14/16 22:00 12/24/16 13:59 12/16/16 13:19 111.4 MLS/HR Benztropine Mesylate (Cogentin Tab) 1 mg BID PO 12/14/16 21:00 01/13/17 20:59 12/16/16 07:49 1 MG Ipratropium [place] (Atrovent 0.02% 0.5MG/2.5ML Neb) 0.5 mg Q2H PRN INH 12/14/16 15:45 01/13/17 15:44 12/15/16 16:43 0.5 MG Levalbuterol (Xopenex 1.25MG/ 0.5ML Neb) 1.25 mg Q2H PRN INH 12/14/16 15:45 01/13/17 15:44 12/15/16 16:43 1.25 MG Pantoprazole Sodium (Protonix Tab) 40 mg QAM PO 12/16/16 09:00 01/15/17 08:59 12/16/16 07:50 40 MG Morphine Sulfate (MoRPHine SULFATE INJ) 2 mg Q4 PRN IV 12/16/16 11:00 12/30/16 10:59 Morphine Sulfate (MoRPHine SULFATE INJ) 4 mg Q4 PRN IV 12/16/16 11:00 12/30/16 10:59 Objective Vital Signs Date Time Temp Pulse Resp B/P (MAP) Pulse Ox O2 Delivery O2 Flow Rate FiO2 12/16/16 14:26 36.5 106 20 98/62 (74) 92 12/16/16 08:00 Room Air 12/16/16 07:13 36.8 88 18 96/54 (68) 97 Room Air 12/16/16 00:00 Room Air 12/15/16 23:07 36.8 99 20 103/69 (80) 98 Room Air 12/15/16 19:00 98 Room Air 12/15/16 16:20 92 16 98 Room Air 12/15/16 16:00 Room Air 12/15/16 15:17 36.4 100 20 115/77 (90) 97 Room Air Physical Exam General Appearance: no apparent distress, + obese Eyes: normal inspection, EOMI, sclerae normal ENT: normal ENT inspection, hearing grossly normal, pharynx normal Neck: supple, no adenopathy, no JVD, trachea midline Respiratory/Chest: chest non-tender, lungs clear, normal breath sounds, no respiratory distress, no accessory muscle use Cardiovascular: regular rate, rhythm, no gallop, no JVD, no murmur Abdomen: normal bowel sounds, non tender, soft, no organomegaly Extremities: non-tender, no pedal edema, no calf tenderness, pelvis stable, + pertinent finding (bilateral LE amputations, left hand and arm swelling, mild) Neurologic/Psychiatric: teacher citizenship II-XII nml as tested, alert, normal mood/affect, oriented x 3 Skin: normal color, warm/dry, no rash, + pertinent finding (left leg stump wrapped, dressing clean) Laboratory Results Last 24 Hours Test 12/16/16 08:02 White Blood Count 8.87 K/uL Red Blood Count 3.73 M/uL Hemoglobin 11.1 g/dL Hematocrit 35.7 % Mean Corpuscular Volume 95.7 fL Mean Corpuscular Hemoglobin 29.8 pg Mean Corpuscular Hemoglobin Concent 31.1 g/dl RDW Standard Deviation 59.4 fL RDW Coefficient of Variation 17.2 % Platelet Count 258 K/uL Mean Platelet Volume 9.5 fL Sodium Level 145 mmol/L Potassium Level 3.8 mmol/L Chloride Level 114 mmol/L Carbon Dioxide Level 23 mmol/L Anion Gap 8.0 mmol/L Blood Urea Nitrogen 4 mg/dl Creatinine 0.68 mg/dl Est Creatinine Clear Calc Drug Dose 99.0 ml/min Estimated GFR () 137.0 Estimated GFR (Non- 118.2 BUN/Creatinine Ratio 6.5 Random Glucose 93 mg/dl Calcium Level 8.6 mg/dl Magnesium Level 2.3 mg/dl Assessment and Plan Ms. 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 Stitches placed for a traumatic laceration on December 08 L Amputation Stump Cellulitis S/P Laceration (December 08): - XR without evidence of bony involvement - Daptomycin at 6 mg/kg daily (started on 12/14) - BCx still pending, follow up final results - Consult ID - recommendations for dosing and duration for leg and MDR UTI - Consult wound, appreciate recommendations -- Xeroform and dry dressing changes daily, no need for debridement at this point -- f/u w/ Dr. Pak next week in clinic MDR Pseudomonas UTI with Suprapubic Catheter: - UCx- Pseudomonas, resistant to quinolones, aztreonam and imipenem - Zerbaxa 1.5 g IV Q8H (started on 12/14) per ID recommendations Hypokalemia- resolved after replacement Left hand swelling: will stop IV fluids and monitor, cannot have diuretics with her shunt Pulmonary Embolism- continue Xarelto Asthma without Exacerbation- STABLE: Inhalers and Nebs PRN, Singulair 10 mg daily Spina Bifida/Neurogenic Bowel and Bladder S/P Suprapubic Catheter: - Levsin 0.125 mg QID - Per patient does, does daily saline flushes w/ 500 cc- nursing staff made aware and order placed Hydrocephalus S/P INFORMATION STRATEGIST Shunt: CT without evidence of acute changes Bipolar Disorder with Psychotic Features: STABLE - Reports continued intermittent hallucinations - follows with Dr. Goode with recent med changes - Cogentin 1 mg BID, [place] 250 mg AM and 600 PM, Pamelor 100 mg HS, Risperidone 1 mg AM and 2 mg PM, Hydroxyzine 25 mg @1200 and q8 hrs PRN Hypothyroidism: Synthroid 25 mcg daily GI Prophylaxis: Protonix 40 mg daily DVT Prophylaxis: Xarelto Code Status: LEVEL I, FULL Dispo: From home, lives w/ mother- oncology social worker consulted
--- NOTE | 2016-12-16 15:22 | Infectious Disease Progress Nt ---
Progress Note Date of Service Dec 16, 2016. Subjective Pt evaluation today including: conversation w/ patient, physical exam, chart review, lab review, review of studies, conversation w/ fundraising consultant, review of inpatient medication list C/O pain left stump and left hand swelling. Remains afebrile. Tolerating antibiotics. All Other Systems: Reviewed and Negative Medications Current Inpatient Medications Medications (Trade) Dose Ordered Sig/Brenna Route Start Time Stop Time Status Last Admin Dose Admin Acetaminophen (Tylenol Tab) 650 mg Q4H PRN PO 12/14/16 14:30 01/13/17 14:29 Al Hydrox/Mg Hydrox/Simethicone (Maalox Max Susp) 15 ml Q4H PRN PO 12/14/16 14:30 01/13/17 14:29 Magnesium Hydroxide (Milk Of Magnesia Susp) 30 ml Q6H PRN PO 12/14/16 14:30 01/13/17 14:29 Polyethylene (Miralax Powder Packet) 17 gm DAILY PRN PO 12/14/16 14:30 01/13/17 14:29 Ondansetron HCl (Zofran Inj) 4 mg Q6H PRN IV 12/14/16 14:30 01/13/17 14:29 Benzonatate (Tessalon Perles Cap) 100 mg TID PRN PO 12/14/16 14:30 01/13/17 14:29 Clonazepam (Klonopin Tab) 0.5 mg BID PO 12/14/16 21:00 01/13/17 20:59 12/16/16 07:56 0.5 MG Cyanocobalamin (Vitamin B-12 Tab) 500 mcg DAILY PO 12/15/16 09:00 01/14/17 08:59 12/16/16 07:49 500 MCG Salmeterol Xinafoate/ Fluticasone (Advair Diskus 500/50 Inh) 1 puff BID INH 12/14/16 21:00 01/13/17 20:59 12/16/16 07:51 1 PUFF Gabapentin (Neurontin Cap) 300 mg TID PO 12/14/16 21:00 01/13/17 20:59 12/16/16 13:19 300 MG Hydroxyzine HCl (Vistaril Tab) 25 mg QD@1200 PO 12/15/16 12:00 01/14/17 11:59 12/16/16 13:13 25 MG Hyoscyamine Sulfate (Levsin Tab) 0.125 mg QID PO 12/14/16 17:00 01/13/17 16:59 12/16/16 13:13 0.125 MG Levothyroxine Sodium (Synthroid Tab) 25 mcg DAILYBB PO 12/15/16 06:30 01/14/17 06:59 12/16/16 06:36 25 MCG [place] Carbonate (Eskalith Cr Tab) 450 mg QAM PO 12/15/16 09:00 01/14/17 08:59 12/16/16 07:47 450 MG Meclizine HCl (Antivert Tab) 25 mg TID PRN PO 12/14/16 14:30 01/13/17 14:29 Montelukast Sodium (Singulair Tab) 10 mg HS PO 12/14/16 21:00 01/13/17 20:59 12/15/16 20:56 10 MG Nortriptyline HCl (Pamelor Cap) 100 mg HS PO 12/14/16 21:00 01/13/17 20:59 12/15/16 20:56 100 MG Ranitidine HCl (zANTac TAB) 150 mg HS PO 12/14/16 21:00 01/13/17 20:59 12/15/16 20:56 150 MG Risperidone (Risperdal Tab) 1 mg QAM PO 12/15/16 09:00 01/14/17 08:59 12/16/16 07:49 1 MG Risperidone (Risperdal Tab) 2 mg QPM PO 12/14/16 21:00 01/13/17 20:59 12/15/16 20:52 2 MG Rivaroxaban (Xarelto Tab) 20 mg HS PO 12/14/16 21:00 01/13/17 20:59 12/15/16 20:53 20 MG Topiramate (Topamax Tab) 75 mg BID PRN PO 12/14/16 14:30 01/13/17 14:29 12/15/16 22:42 75 MG Tramadol HCl (Ultram Tab) 50 mg TID PRN PO 12/14/16 14:30 01/13/17 14:29 12/15/16 20:51 50 MG Albuterol (Ventolin Hfa Inhaler) 2 puffs Q4H PRN INH 12/14/16 15:15 01/13/17 15:14 Cholecalciferol (Vitamin D Tab) 2,000 inter.unit DAILY PO 12/15/16 09:00 01/14/17 08:59 12/16/16 07:48 2,000 INTER.UNIT Miscellaneous Information (Order Awaiting Action) 1 ea QS N/A 12/14/16 16:00 01/13/17 15:59 Ferrous Sulfate (Feosol Tab) 325 mg BIDM PO 12/14/16 17:00 01/13/17 17:59 12/16/16 07:47 325 MG Hydroxyzine HCl (Vistaril Tab) 25 mg Q8H PRN PO 12/14/16 15:15 01/13/17 15:14 12/15/16 23:28 25 MG [place] Carbonate ([place] Carbonate Tab) 600 mg QDD PO 12/14/16 17:00 01/13/17 17:59 12/15/16 17:09 600 MG Miconazole Nitrate (Desenex Powder) 1 appln TID PRN EXT 12/14/16 15:15 01/13/17 15:14 12/14/16 21:02 1 APPLN Daptomycin 630 mg/ Sodium Chloride 62.6 ml @ 100 mls/hr Q24H IV 12/15/16 12:00 12/25/16 11:59 12/16/16 13:13 100 MLS/HR Lactobacillus Acidophilus (Floranex Tab) 4 tab TIDM PO 12/14/16 17:00 01/13/17 17:59 12/16/16 13:13 4 TAB Ceftolozane/ Tazobactam 1.5 gm/ Dextrose 111.4 ml @ 111.4 mls/ hr Q8H IV 12/14/16 22:00 12/24/16 13:59 12/16/16 13:19 111.4 MLS/HR Benztropine Mesylate (Cogentin Tab) 1 mg BID PO 12/14/16 21:00 01/13/17 20:59 12/16/16 07:49 1 MG Ipratropium [place] (Atrovent 0.02% 0.5MG/2.5ML Neb) 0.5 mg Q2H PRN INH 12/14/16 15:45 01/13/17 15:44 12/15/16 16:43 0.5 MG Levalbuterol (Xopenex 1.25MG/ 0.5ML Neb) 1.25 mg Q2H PRN INH 12/14/16 15:45 01/13/17 15:44 12/15/16 16:43 1.25 MG Pantoprazole Sodium (Protonix Tab) 40 mg QAM PO 12/16/16 09:00 01/15/17 08:59 12/16/16 07:50 40 MG Morphine Sulfate (MoRPHine SULFATE INJ) 2 mg Q4 PRN IV 12/16/16 11:00 12/30/16 10:59 Morphine Sulfate (MoRPHine SULFATE INJ) 4 mg Q4 PRN IV 12/16/16 11:00 12/30/16 10:59 Objective Vital Signs Date Time Temp Pulse Resp B/P (MAP) Pulse Ox O2 Delivery O2 Flow Rate FiO2 12/16/16 14:26 36.5 106 20 98/62 (74) 92 12/16/16 08:00 Room Air 12/16/16 07:13 36.8 88 18 96/54 (68) 97 Room Air 12/16/16 00:00 Room Air 12/15/16 23:07 36.8 99 20 103/69 (80) 98 Room Air 12/15/16 19:00 98 Room Air 12/15/16 16:20 92 16 98 Room Air 12/15/16 16:00 Room Air Physical Exam General Appearance: WD/WN, no apparent distress, + obese Eyes: normal inspection, sclerae normal ENT: normal ENT inspection, pharynx normal Neck: supple, no adenopathy, trachea midline Respiratory/Chest: lungs clear, normal breath sounds, no respiratory distress Cardiovascular: regular rate, rhythm, no gallop, no murmur Abdomen: normal bowel sounds, non tender, soft, no organomegaly Extremities: non-tender, no calf tenderness, + pertinent finding (mild left hand swelling) Neurologic/Psychiatric: alert, oriented x 3 Skin: normal color, no rash, + pertinent finding (left LE dressing intact) Lymphatic: no adenopathy Laboratory Results Last 24 Hours Test 12/16/16 08:02 White Blood Count 8.87 K/uL Red Blood Count 3.73 M/uL Hemoglobin 11.1 g/dL Hematocrit 35.7 % Mean Corpuscular Volume 95.7 fL Mean Corpuscular Hemoglobin 29.8 pg Mean Corpuscular Hemoglobin Concent 31.1 g/dl RDW Standard Deviation 59.4 fL RDW Coefficient of Variation 17.2 % Platelet Count 258 K/uL Mean Platelet Volume 9.5 fL Sodium Level 145 mmol/L Potassium Level 3.8 mmol/L Chloride Level 114 mmol/L Carbon Dioxide Level 23 mmol/L Anion Gap 8.0 mmol/L Blood Urea Nitrogen 4 mg/dl Creatinine 0.68 mg/dl Est Creatinine Clear Calc Drug Dose 99.0 ml/min Estimated GFR () 137.0 Estimated GFR (Non- 118.2 BUN/Creatinine Ratio 6.5 Random Glucose 93 mg/dl Calcium Level 8.6 mg/dl Magnesium Level 2.3 mg/dl Assessment and Plan Infection at LLE laceration site as well as UTI with MDR Pseudomonas. As discussed, patient to be treated with daptomycin and ceftolozone-tazobactam, likely in range of 7 days. Blood cultures remain negative. Will follow.
[2016-12-16] MEDS: LITHIUM CARBONATE 300 MG TAB PO SCH (17:40)
[2016-12-16] MEDS: RANITIDINE HCL 150 MG TAB PO SCH (20:56)
[2016-12-16] MEDS: RIVAROXABAN 20 MG TAB PO SCH (20:57)
[2016-12-16] MEDS: MONTELUKAST SOD 10 MG TAB PO SCH (20:59)
[2016-12-16] MEDS: NORTRIPTYLINE HCL 25 MG CAP PO SCH (20:59)
[2016-12-16] MEDS: ONDANSETRON INJ 2 MG/ML 2 ML VIAL IV PRN (23:07)
[2016-12-16 23:13] VITALS: BP 122/76; PULSE 108; TEMP 37; O2SAT 96
[2016-12-17] MEDS: DEXTROSE 5% IV SCH ×3 (05:25→21:38)
[2016-12-17] MEDS: CEFTOLOZANE IV SCH ×3 (05:25→21:38)
[2016-12-17] MEDS: TAZOBACTAM IV SCH ×3 (05:25→21:38)
[2016-12-17 06:10] LABS: HEMATOCRIT 35.3 % (37-47); MEAN CORPUSCULAR HEMOGLOBIN 30.2 pg (25-34); MEAN CORPUSCULAR HGB CONC 31.2 g/dl (32-36); MEAN PLATELET VOLUME 9.6 fL (7.4-10.4); PLATELET COUNT 243 K/uL (130-400); RED BLOOD COUNT 3.64 M/uL (4.2-5.4); WHITE BLOOD COUNT 8.37 K/uL (4.8-10.8)
[2016-12-17] MEDS: LEVOTHYROXINE 25 MCG TAB PO SCH (06:29)
[2016-12-17 06:45] LABS: BUN/CREATININE RATIO 9.7 (10-20); CALCIUM 8.5 mg/dl (8.5-10.1); CREATININE 0.63 mg/dl (0.60-1.20); MAGNESIUM 2.3 mg/dl (1.8-2.4); POTASSIUM 3.7 mmol/L (3.5-5.1)
[2016-12-17 07:19] VITALS: BP 94/71; PULSE 95; TEMP 36.4; O2SAT 96
[2016-12-17] MEDS: CYANOCOBALAMIN 500 MCG TAB (VIT B-12) PO SCH (08:14)
[2016-12-17] MEDS: LITHIUM CARBONATE 450 MG TABCR PO SCH (08:14)
[2016-12-17] MEDS: HYOSCYAMINE SULFATE 0.125 MG SL TAB PO SCH ×4 (08:14→21:12)
[2016-12-17] MEDS: GABAPENTIN 300 MG CAP PO SCH ×3 (08:14→21:14)
[2016-12-17] MEDS: PANTOprazole SOD 40 MG TAB PO SCH (08:14)
[2016-12-17] MEDS: LACTOBACILLUS ACIDOPHILUS (FLORANEX) TAB PO SCH ×3 (08:15→16:56)
[2016-12-17] MEDS: FERROUS SULFATE 325 MG TAB PO SCH ×2 (08:15→16:55)
[2016-12-17] MEDS: CHOLECALCIFEROL 1000 INTER.UNIT TAB PO SCH (08:15)
[2016-12-17] MEDS: FLUTICASONE/SALMETEROL (ADVAIR) 500/50 INH 14 PUFF INH SCH ×2 (08:16→21:11)
[2016-12-17] MEDS: RISPERIDONE 1 MG TAB PO SCH ×2 (08:16→21:16)
[2016-12-17] MEDS: BENZTROPINE MESYLATE 1 MG TAB PO SCH ×2 (08:16→21:15)
[2016-12-17] MEDS: CLONAZEPAM 0.5 MG TAB PO SCH ×2 (08:17→21:12)
[2016-12-17] MEDS ORDERED: RIZATRIPTAN BENZOATE 10 MG TAB PO ONE (11:00)
[2016-12-17] MEDS: SODIUM CHLORIDE 0.9% IV SCH (11:32)
[2016-12-17] MEDS: DAPTOMYCIN IV SCH (11:32)
[2016-12-17] MEDS: hydrOXYzine HCL 25 MG TAB PO SCH (11:33)
--- NOTE | 2016-12-17 13:44 | Progress Note ---
Subjective Date of Service: Dec 17, 2016. Subjective Pt evaluation today including: conversation w/ patient, physical exam, review of inpatient medication list Pain: headache today PO Intake: adequate Voiding: arango catheter in place patient with worsening headache today, requesting something stronger discussed using Maxalt and then Morphine less swelling today cultures still negative Problem List Medical Problems: (1) Acute pyelonephritis Status: Acute (2) Allergic reaction Status: Acute (3) Allergic reaction Status: Acute (4) Asthma with exacerbation Status: Acute (5) Chronic UTI (urinary tract infection) Status: Acute (6) Complicated urinary tract infection Status: Acute (7) Delusions Status: Acute (8) Gabapentin overdose Status: Acute (9) Hypokalemia Status: Acute (10) Intractable headache Status: Acute (11) Laceration Status: Acute (12) Low back pain Status: Acute (13) Lower abdominal pain Status: Acute (14) Lower abdominal pain Status: Acute (15) Mood disorder Status: Acute (16) Mood disorder Status: Acute (17) Multiple drug resistant organism (MDRO) culture positive Status: Acute (18) Nausea Status: Acute (19) Paranoia Status: Acute (20) Pelvic pain Status: Acute (21) Right flank pain Status: Acute (22) Right leg pain Status: Acute (23) Self-harming behavior Status: Acute (24) Shunt malfunction Status: Acute (25) Shunt malfunction Status: Acute (26) Suicidal ideation Status: Acute (27) Suicidal ideation Status: Acute (28) Suprapubic pain Status: Acute (29) Urinary tract infection Status: Acute (30) Urinary tract infection Status: Acute (31) Urinary tract infection Status: Acute (32) UTI (urinary tract infection) Status: Acute (33) UTI (urinary tract infection) Status: Acute (34) Weakness Status: Acute Review of Systems Constitutional: + weakness, + fatigue Cardiac: + edema (arms, less than yesterday) Neurologic: + problem reported (headache, migraine) All Other Systems: Reviewed and Negative Medications Current Inpatient Medications Medications (Trade) Dose Ordered Sig/Brenna Route Start Time Stop Time Status Last Admin Dose Admin Acetaminophen (Tylenol Tab) 650 mg Q4H PRN PO 12/14/16 14:30 01/13/17 14:29 Al Hydrox/Mg Hydrox/Simethicone (Maalox Max Susp) 15 ml Q4H PRN PO 12/14/16 14:30 01/13/17 14:29 Magnesium Hydroxide (Milk Of Magnesia Susp) 30 ml Q6H PRN PO 12/14/16 14:30 01/13/17 14:29 Polyethylene (Miralax Powder Packet) 17 gm DAILY PRN PO 12/14/16 14:30 01/13/17 14:29 Ondansetron HCl (Zofran Inj) 4 mg Q6H PRN IV 12/14/16 14:30 01/13/17 14:29 12/16/16 23:07 4 MG Benzonatate (Tessalon Perles Cap) 100 mg TID PRN PO 12/14/16 14:30 01/13/17 14:29 Clonazepam (Klonopin Tab) 0.5 mg BID PO 12/14/16 21:00 01/13/17 20:59 12/17/16 08:17 0.5 MG Cyanocobalamin (Vitamin B-12 Tab) 500 mcg DAILY PO 12/15/16 09:00 01/14/17 08:59 12/17/16 08:14 500 MCG Salmeterol Xinafoate/ Fluticasone (Advair Diskus 500/50 Inh) 1 puff BID INH 12/14/16 21:00 01/13/17 20:59 12/17/16 08:16 1 PUFF Gabapentin (Neurontin Cap) 300 mg TID PO 12/14/16 21:00 01/13/17 20:59 12/17/16 08:14 300 MG Hydroxyzine HCl (Vistaril Tab) 25 mg QD@1200 PO 12/15/16 12:00 01/14/17 11:59 12/17/16 11:33 25 MG Hyoscyamine Sulfate (Levsin Tab) 0.125 mg QID PO 12/14/16 17:00 01/13/17 16:59 12/17/16 12:57 0.125 MG Levothyroxine Sodium (Synthroid Tab) 25 mcg DAILYBB PO 12/15/16 06:30 01/14/17 06:59 12/17/16 06:29 25 MCG [place] Carbonate (Eskalith Cr Tab) 450 mg QAM PO 12/15/16 09:00 01/14/17 08:59 12/17/16 08:14 450 MG Meclizine HCl (Antivert Tab) 25 mg TID PRN PO 12/14/16 14:30 01/13/17 14:29 Montelukast Sodium (Singulair Tab) 10 mg HS PO 12/14/16 21:00 01/13/17 20:59 12/16/16 20:59 10 MG Nortriptyline HCl (Pamelor Cap) 100 mg HS PO 12/14/16 21:00 01/13/17 20:59 12/16/16 20:59 100 MG Ranitidine HCl (zANTac TAB) 150 mg HS PO 12/14/16 21:00 01/13/17 20:59 12/16/16 20:56 150 MG Risperidone (Risperdal Tab) 1 mg QAM PO 12/15/16 09:00 01/14/17 08:59 12/17/16 08:16 1 MG Risperidone (Risperdal Tab) 2 mg QPM PO 12/14/16 21:00 01/13/17 20:59 12/16/16 20:56 2 MG Rivaroxaban (Xarelto Tab) 20 mg HS PO 12/14/16 21:00 01/13/17 20:59 12/16/16 20:57 20 MG Topiramate (Topamax Tab) 75 mg BID PRN PO 12/14/16 14:30 01/13/17 14:29 12/15/16 22:42 75 MG Tramadol HCl (Ultram Tab) 50 mg TID PRN PO 12/14/16 14:30 01/13/17 14:29 12/15/16 20:51 50 MG Albuterol (Ventolin Hfa Inhaler) 2 puffs Q4H PRN INH 12/14/16 15:15 01/13/17 15:14 Cholecalciferol (Vitamin D Tab) 2,000 inter.unit DAILY PO 12/15/16 09:00 01/14/17 08:59 12/17/16 08:15 2,000 INTER.UNIT Miscellaneous Information (Order Awaiting Action) 1 ea QS N/A 12/14/16 16:00 01/13/17 15:59 Ferrous Sulfate (Feosol Tab) 325 mg BIDM PO 12/14/16 17:00 01/13/17 17:59 12/17/16 08:15 325 MG Hydroxyzine HCl (Vistaril Tab) 25 mg Q8H PRN PO 12/14/16 15:15 01/13/17 15:14 12/15/16 23:28 25 MG [place] Carbonate ([place] Carbonate Tab) 600 mg QDD PO 12/14/16 17:00 01/13/17 17:59 12/16/16 17:40 600 MG Miconazole Nitrate (Desenex Powder) 1 appln TID PRN EXT 12/14/16 15:15 01/13/17 15:14 12/14/16 21:02 1 APPLN Daptomycin 630 mg/ Sodium Chloride 62.6 ml @ 100 mls/hr Q24H IV 12/15/16 12:00 12/25/16 11:59 12/17/16 11:32 100 MLS/HR Lactobacillus Acidophilus (Floranex Tab) 4 tab TIDM PO 12/14/16 17:00 01/13/17 17:59 12/17/16 11:33 4 TAB Ceftolozane/ Tazobactam 1.5 gm/ Dextrose 111.4 ml @ 111.4 mls/ hr Q8H IV 12/14/16 22:00 12/24/16 13:59 12/17/16 05:25 111.4 MLS/HR Benztropine Mesylate (Cogentin Tab) 1 mg BID PO 12/14/16 21:00 01/13/17 20:59 12/17/16 08:16 1 MG Ipratropium [place] (Atrovent 0.02% 0.5MG/2.5ML Neb) 0.5 mg Q2H PRN INH 12/14/16 15:45 01/13/17 15:44 12/15/16 16:43 0.5 MG Levalbuterol (Xopenex 1.25MG/ 0.5ML Neb) 1.25 mg Q2H PRN INH 12/14/16 15:45 01/13/17 15:44 12/15/16 16:43 1.25 MG Pantoprazole Sodium (Protonix Tab) 40 mg QAM PO 12/16/16 09:00 01/15/17 08:59 12/17/16 08:14 40 MG Morphine Sulfate (MoRPHine SULFATE INJ) 2 mg Q4 PRN IV 12/16/16 11:00 12/30/16 10:59 Morphine Sulfate (MoRPHine SULFATE INJ) 4 mg Q4 PRN IV 12/16/16 11:00 12/30/16 10:59 12/16/16 23:01 4 MG Heparin Sodium (Porcine) (Heparin 100 Unit/ml 5ml Flush) 5 ml PRN PRN IV 12/16/16 23:45 01/15/17 23:44 12/17/16 05:21 5 ML Objective Vital Signs Date Time Temp Pulse Resp B/P (MAP) Pulse Ox O2 Delivery O2 Flow Rate FiO2 12/17/16 08:00 Room Air 12/17/16 07:19 36.4 95 20 94/71 (79) 96 12/17/16 00:00 Room Air 12/16/16 23:13 37.0 108 18 122/76 (91) 96 Room Air 12/16/16 20:00 Room Air 12/16/16 16:00 Room Air 12/16/16 14:26 36.5 106 20 98/62 (74) 92 Physical Exam General Appearance: no apparent distress, + obese Eyes: normal inspection, EOMI, sclerae normal Neck: supple, no adenopathy, no JVD, trachea midline Respiratory/Chest: chest non-tender, lungs clear, normal breath sounds, no respiratory distress, no accessory muscle use Cardiovascular: regular rate, rhythm, no gallop, no JVD, no murmur Abdomen: normal bowel sounds, non tender, soft, no organomegaly Extremities: normal range of motion, non-tender, no calf tenderness, pelvis stable, + pedal edema (arms and hands bilaterally, less than yesterday), + pertinent finding (bilateral BKA) Neurologic/Psychiatric: capacity planning engineer II-XII nml as tested, no motor/sensory deficits, alert, normal mood/affect, oriented x 3 Skin: normal color, warm/dry, no rash Laboratory Results Last 24 Hours Test 12/17/16 05:25 White Blood Count 8.37 K/uL Red Blood Count 3.64 M/uL Hemoglobin 11.0 g/dL Hematocrit 35.3 % Mean Corpuscular Volume 97.0 fL Mean Corpuscular Hemoglobin 30.2 pg Mean Corpuscular Hemoglobin Concent 31.2 g/dl RDW Standard Deviation 60.4 fL RDW Coefficient of Variation 17.1 % Platelet Count 243 K/uL Mean Platelet Volume 9.6 fL Sodium Level 145 mmol/L Potassium Level 3.7 mmol/L Chloride Level 113 mmol/L Carbon Dioxide Level 26 mmol/L Anion Gap 6.0 mmol/L Blood Urea Nitrogen 6 mg/dl Creatinine 0.63 mg/dl Est Creatinine Clear Calc Drug Dose 106.8 ml/min Estimated GFR () 140.5 Estimated GFR (Non- 121.2 BUN/Creatinine Ratio 9.7 Random Glucose 84 mg/dl Calcium Level 8.5 mg/dl Magnesium Level 2.3 mg/dl Assessment and Plan Ms. 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 Stitches placed for a traumatic laceration on December 08 L Amputation Stump Cellulitis S/P Laceration (December 08): - XR without evidence of bony involvement - Daptomycin at 6 mg/kg daily (started on 12/14) - BCx no growth to date - Consult ID - recommendations for dosing and duration for leg and MDR UTI - Consult wound, appreciate recommendations -- Xeroform and dry dressing changes daily, no need for debridement at this point -- f/u w/ Dr. Pak next week in clinic MDR Pseudomonas UTI with Suprapubic Catheter: - UCx- Pseudomonas, resistant to quinolones, aztreonam and imipenem - Zerbaxa 1.5 g IV Q8H (started on 12/14) per ID recommendations Hypokalemia- resolved after replacement Left hand swelling: less swelling today with stopping IV fluids Migraine headache: use Maxalt, Morphine if needed Pulmonary Embolism- continue Xarelto Asthma without Exacerbation- STABLE: Inhalers and Nebs PRN, Singulair 10 mg daily Spina Bifida/Neurogenic Bowel and Bladder S/P Suprapubic Catheter: - Levsin 0.125 mg QID - Per patient does, does daily saline flushes w/ 500 cc- nursing staff made aware and order placed Hydrocephalus S/P TIPPLE REPAIRER Shunt: CT without evidence of acute changes Bipolar Disorder with Psychotic Features: STABLE - Reports continued intermittent hallucinations - follows with Dr. Goode with recent med changes - Cogentin 1 mg BID, [place] 250 mg AM and 600 PM, Pamelor 100 mg HS, Risperidone 1 mg AM and 2 mg PM, Hydroxyzine 25 mg @1200 and q8 hrs PRN Hypothyroidism: Synthroid 25 mcg daily GI Prophylaxis: Protonix 40 mg daily DVT Prophylaxis: Xarelto Code Status: LEVEL I, FULL Dispo: From home, lives w/ mother- social director consulted
[2016-12-17 15:30] VITALS: BP 122/81; PULSE 91; TEMP 36.6; O2SAT 99
[2016-12-17] MEDS: LITHIUM CARBONATE 300 MG TAB PO SCH (16:55)
[2016-12-17] MEDS: ONDANSETRON INJ 2 MG/ML 2 ML VIAL IV PRN (18:42)
[2016-12-17] MEDS: MONTELUKAST SOD 10 MG TAB PO SCH (21:13)
[2016-12-17] MEDS: RANITIDINE HCL 150 MG TAB PO SCH (21:14)
[2016-12-17] MEDS: NORTRIPTYLINE HCL 25 MG CAP PO SCH (21:14)
[2016-12-17] MEDS: RIVAROXABAN 20 MG TAB PO SCH (21:15)
[2016-12-17 22:42] VITALS: BP 111/74; PULSE 100; TEMP 37; O2SAT 97
[2016-12-18] MEDS: TAZOBACTAM IV SCH ×3 (05:33→22:22)
[2016-12-18] MEDS: CEFTOLOZANE IV SCH ×3 (05:33→22:22)
[2016-12-18] MEDS: DEXTROSE 5% IV SCH ×3 (05:33→22:22)
[2016-12-18] MEDS: LEVOTHYROXINE 25 MCG TAB PO SCH (06:24)
[2016-12-18 07:27] VITALS: BP 98/68; PULSE 91; TEMP 36.5; O2SAT 95
[2016-12-18] MEDS: GABAPENTIN 300 MG CAP PO SCH ×3 (08:26→20:50)
[2016-12-18] MEDS: CLONAZEPAM 0.5 MG TAB PO SCH ×2 (08:26→20:47)
[2016-12-18] MEDS: LACTOBACILLUS ACIDOPHILUS (FLORANEX) TAB PO SCH ×3 (08:27→17:18)
[2016-12-18] MEDS: BENZTROPINE MESYLATE 1 MG TAB PO SCH ×2 (08:27→20:49)
[2016-12-18] MEDS: FERROUS SULFATE 325 MG TAB PO SCH ×2 (08:27→17:17)
[2016-12-18] MEDS: PANTOprazole SOD 40 MG TAB PO SCH (08:28)
[2016-12-18] MEDS: HYOSCYAMINE SULFATE 0.125 MG SL TAB PO SCH ×4 (08:28→20:48)
[2016-12-18] MEDS: CYANOCOBALAMIN 500 MCG TAB (VIT B-12) PO SCH (08:28)
[2016-12-18] MEDS: CHOLECALCIFEROL 1000 INTER.UNIT TAB PO SCH (08:28)
[2016-12-18] MEDS: FLUTICASONE/SALMETEROL (ADVAIR) 500/50 INH 14 PUFF INH SCH ×2 (08:29→20:47)
[2016-12-18] MEDS: RISPERIDONE 1 MG TAB PO SCH ×2 (08:29→20:48)
[2016-12-18] MEDS: LITHIUM CARBONATE 450 MG TABCR PO SCH (08:29)
[2016-12-18] MEDS: DAPTOMYCIN IV SCH (11:54)
[2016-12-18] MEDS: SODIUM CHLORIDE 0.9% IV SCH (11:54)
[2016-12-18] MEDS: hydrOXYzine HCL 25 MG TAB PO SCH (11:55)
--- NOTE | 2016-12-18 12:26 | Progress Note ---
Subjective Date of Service: Dec 18, 2016. Subjective Pt evaluation today including: conversation w/ patient, physical exam, lab review, review of inpatient medication list Pain: headache, moderate to severe PO Intake: adequate Voiding: arango catheter in place still with headache, Maxalt only provided mild relief, not interested in narcotics discussed using Solu Medrol, Phenergan and an additional dose of Maxalt, she agreed discussed plans for discharge, apparently due to some construction issues at her home, cannot go until Monday should be fine, would probably not need any more antibiotics on discharge Problem List Medical Problems: (1) Acute pyelonephritis Status: Acute (2) Allergic reaction Status: Acute (3) Allergic reaction Status: Acute (4) Asthma with exacerbation Status: Acute (5) Chronic UTI (urinary tract infection) Status: Acute (6) Complicated urinary tract infection Status: Acute (7) Delusions Status: Acute (8) Gabapentin overdose Status: Acute (9) Hypokalemia Status: Acute (10) Intractable headache Status: Acute (11) Laceration Status: Acute (12) Low back pain Status: Acute (13) Lower abdominal pain Status: Acute (14) Lower abdominal pain Status: Acute (15) Mood disorder Status: Acute (16) Mood disorder Status: Acute (17) Multiple drug resistant organism (MDRO) culture positive Status: Acute (18) Nausea Status: Acute (19) Paranoia Status: Acute (20) Pelvic pain Status: Acute (21) Right flank pain Status: Acute (22) Right leg pain Status: Acute (23) Self-harming behavior Status: Acute (24) Shunt malfunction Status: Acute (25) Shunt malfunction Status: Acute (26) Suicidal ideation Status: Acute (27) Suicidal ideation Status: Acute (28) Suprapubic pain Status: Acute (29) Urinary tract infection Status: Acute (30) Urinary tract infection Status: Acute (31) Urinary tract infection Status: Acute (32) UTI (urinary tract infection) Status: Acute (33) UTI (urinary tract infection) Status: Acute (34) Weakness Status: Acute Review of Systems Constitutional: + fatigue, + problem reported (headache) Cardiac: + edema All Other Systems: Reviewed and Negative Medications Current Inpatient Medications Medications (Trade) Dose Ordered Sig/Brenna Route Start Time Stop Time Status Last Admin Dose Admin Acetaminophen (Tylenol Tab) 650 mg Q4H PRN PO 12/14/16 14:30 01/13/17 14:29 Al Hydrox/Mg Hydrox/Simethicone (Maalox Max Susp) 15 ml Q4H PRN PO 12/14/16 14:30 01/13/17 14:29 Magnesium Hydroxide (Milk Of Magnesia Susp) 30 ml Q6H PRN PO 12/14/16 14:30 01/13/17 14:29 Polyethylene (Miralax Powder Packet) 17 gm DAILY PRN PO 12/14/16 14:30 01/13/17 14:29 Ondansetron HCl (Zofran Inj) 4 mg Q6H PRN IV 12/14/16 14:30 01/13/17 14:29 12/17/16 18:42 4 MG Benzonatate (Tessalon Perles Cap) 100 mg TID PRN PO 12/14/16 14:30 01/13/17 14:29 Clonazepam (Klonopin Tab) 0.5 mg BID PO 12/14/16 21:00 01/13/17 20:59 12/18/16 08:26 0.5 MG Cyanocobalamin (Vitamin B-12 Tab) 500 mcg DAILY PO 12/15/16 09:00 01/14/17 08:59 12/18/16 08:28 500 MCG Salmeterol Xinafoate/ Fluticasone (Advair Diskus 500/50 Inh) 1 puff BID INH 12/14/16 21:00 01/13/17 20:59 12/18/16 08:29 1 PUFF Gabapentin (Neurontin Cap) 300 mg TID PO 12/14/16 21:00 01/13/17 20:59 12/18/16 08:26 300 MG Hydroxyzine HCl (Vistaril Tab) 25 mg QD@1200 PO 12/15/16 12:00 01/14/17 11:59 12/18/16 11:55 25 MG Hyoscyamine Sulfate (Levsin Tab) 0.125 mg QID PO 12/14/16 17:00 01/13/17 16:59 12/18/16 11:55 0.125 MG Levothyroxine Sodium (Synthroid Tab) 25 mcg DAILYBB PO 12/15/16 06:30 01/14/17 06:59 12/18/16 06:24 25 MCG [place] Carbonate (Eskalith Cr Tab) 450 mg QAM PO 12/15/16 09:00 01/14/17 08:59 12/18/16 08:29 450 MG Meclizine HCl (Antivert Tab) 25 mg TID PRN PO 12/14/16 14:30 01/13/17 14:29 Montelukast Sodium (Singulair Tab) 10 mg HS PO 12/14/16 21:00 01/13/17 20:59 12/17/16 21:13 10 MG Nortriptyline HCl (Pamelor Cap) 100 mg HS PO 12/14/16 21:00 01/13/17 20:59 12/17/16 21:14 100 MG Ranitidine HCl (zANTac TAB) 150 mg HS PO 12/14/16 21:00 01/13/17 20:59 12/17/16 21:14 150 MG Risperidone (Risperdal Tab) 1 mg QAM PO 12/15/16 09:00 01/14/17 08:59 12/18/16 08:29 1 MG Risperidone (Risperdal Tab) 2 mg QPM PO 12/14/16 21:00 01/13/17 20:59 12/17/16 21:16 2 MG Rivaroxaban (Xarelto Tab) 20 mg HS PO 12/14/16 21:00 01/13/17 20:59 12/17/16 21:15 20 MG Topiramate (Topamax Tab) 75 mg BID PRN PO 12/14/16 14:30 01/13/17 14:29 12/15/16 22:42 75 MG Tramadol HCl (Ultram Tab) 50 mg TID PRN PO 12/14/16 14:30 01/13/17 14:29 12/15/16 20:51 50 MG Albuterol (Ventolin Hfa Inhaler) 2 puffs Q4H PRN INH 12/14/16 15:15 01/13/17 15:14 Cholecalciferol (Vitamin D Tab) 2,000 inter.unit DAILY PO 12/15/16 09:00 01/14/17 08:59 12/18/16 08:28 2,000 INTER.UNIT Miscellaneous Information (Order Awaiting Action) 1 ea QS N/A 12/14/16 16:00 01/13/17 15:59 Ferrous Sulfate (Feosol Tab) 325 mg BIDM PO 12/14/16 17:00 01/13/17 17:59 12/18/16 08:27 325 MG Hydroxyzine HCl (Vistaril Tab) 25 mg Q8H PRN PO 12/14/16 15:15 01/13/17 15:14 12/15/16 23:28 25 MG [place] Carbonate ([place] Carbonate Tab) 600 mg QDD PO 12/14/16 17:00 01/13/17 17:59 12/17/16 16:55 600 MG Miconazole Nitrate (Desenex Powder) 1 appln TID PRN EXT 12/14/16 15:15 01/13/17 15:14 12/14/16 21:02 1 APPLN Daptomycin 630 mg/ Sodium Chloride 62.6 ml @ 100 mls/hr Q24H IV 12/15/16 12:00 12/25/16 11:59 12/18/16 11:54 100 MLS/HR Lactobacillus Acidophilus (Floranex Tab) 4 tab TIDM PO 12/14/16 17:00 01/13/17 17:59 12/18/16 11:55 4 TAB Ceftolozane/ Tazobactam 1.5 gm/ Dextrose 111.4 ml @ 111.4 mls/ hr Q8H IV 12/14/16 22:00 12/24/16 13:59 12/18/16 05:33 111.4 MLS/HR Benztropine Mesylate (Cogentin Tab) 1 mg BID PO 12/14/16 21:00 01/13/17 20:59 12/18/16 08:27 1 MG Ipratropium [place] (Atrovent 0.02% 0.5MG/2.5ML Neb) 0.5 mg Q2H PRN INH 12/14/16 15:45 01/13/17 15:44 12/15/16 16:43 0.5 MG Levalbuterol (Xopenex 1.25MG/ 0.5ML Neb) 1.25 mg Q2H PRN INH 12/14/16 15:45 01/13/17 15:44 12/15/16 16:43 1.25 MG Pantoprazole Sodium (Protonix Tab) 40 mg QAM PO 12/16/16 09:00 01/15/17 08:59 12/18/16 08:28 40 MG Morphine Sulfate (MoRPHine SULFATE INJ) 2 mg Q4 PRN IV 12/16/16 11:00 12/30/16 10:59 Morphine Sulfate (MoRPHine SULFATE INJ) 4 mg Q4 PRN IV 12/16/16 11:00 12/30/16 10:59 12/16/16 23:01 4 MG Heparin Sodium (Porcine) (Heparin 100 Unit/ml 5ml Flush) 5 ml PRN PRN IV 12/16/16 23:45 01/15/17 23:44 12/18/16 07:12 5 ML Objective Vital Signs Date Time Temp Pulse Resp B/P (MAP) Pulse Ox O2 Delivery O2 Flow Rate FiO2 12/18/16 08:00 Room Air 12/18/16 07:27 36.5 91 18 98/68 (78) 95 12/18/16 00:00 Room Air 12/17/16 22:42 37.0 100 18 111/74 (86) 97 Room Air 12/17/16 20:00 Room Air 12/17/16 16:00 Room Air 12/17/16 15:30 36.6 91 16 122/81 (95) 99 Physical Exam General Appearance: no apparent distress, + obese Eyes: normal inspection, EOMI, sclerae normal ENT: normal ENT inspection, hearing grossly normal, pharynx normal Neck: supple, no adenopathy, no JVD Respiratory/Chest: chest non-tender, lungs clear, normal breath sounds, no respiratory distress, no accessory muscle use Cardiovascular: regular rate, rhythm, no gallop, no JVD, no murmur Abdomen: normal bowel sounds, non tender, soft, no organomegaly Extremities: normal range of motion, non-tender, no calf tenderness, pelvis stable, + pedal edema (mild edema in hands), + pertinent finding (bilateral lower leg amputation) Neurologic/Psychiatric: clinical operations consultant II-XII nml as tested, alert, normal mood/affect, oriented x 3 Skin: normal color, warm/dry, no rash Assessment and Plan Ms. 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 Stitches placed for a traumatic laceration on December 08 L Amputation Stump Cellulitis S/P Laceration (December 08): - XR without evidence of bony involvement - Daptomycin at 6 mg/kg daily (started on 12/14) - BCx no growth to date - Consult ID - recommendations for dosing and duration for leg and MDR UTI - Consult wound, appreciate recommendations -- Xeroform and dry dressing changes daily, no need for debridement at this point -- f/u w/ Dr. Pak next week in clinic MDR Pseudomonas UTI with Suprapubic Catheter: - UCx- Pseudomonas, resistant to quinolones, aztreonam and imipenem - Zerbaxa 1.5 g IV Q8H (started on 12/14) per ID recommendations Hypokalemia- resolved after replacement Left hand swelling: going down daily Migraine headache: did not respond to Maxalt alone will try Solu Medrol, phenergan, Maxalt today patient refuses narcotics Pulmonary Embolism- continue Xarelto Asthma without Exacerbation- STABLE: Inhalers and Nebs PRN, Singulair 10 mg daily Spina Bifida/Neurogenic Bowel and Bladder S/P Suprapubic Catheter: - Levsin 0.125 mg QID - Per patient does, does daily saline flushes w/ 500 cc- nursing staff made aware and order placed 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 Goode with recent med changes - Cogentin 1 mg BID, [place] 250 mg AM and 600 PM, Pamelor 100 mg HS, Risperidone 1 mg AM and 2 mg PM, Hydroxyzine 25 mg @1200 and q8 hrs PRN check lithium level tomorrow Hypothyroidism: Synthroid 25 mcg daily GI Prophylaxis: Protonix 40 mg daily DVT Prophylaxis: Xarelto Code Status: LEVEL I, FULL Dispo: From home, lives w/ mother- social worker consulted per patient's mom, cannot go home until Monday due to construction issues
[2016-12-18] MEDS ORDERED: PROMETHAZINE HCL INJ 25 MG in SODIUM CHLORIDE 0.9% 50ML 50 ML IV ONE (12:45)
[2016-12-18] MEDS ORDERED: RIZATRIPTAN BENZOATE 10 MG TAB PO ONE (12:45)
[2016-12-18] MEDS ORDERED: METHYLPREDNISOLONE IV 40 MG in SYRINGE 0 ML IV ONE (12:45)
[2016-12-18 15:32] VITALS: BP 116/74; PULSE 105; TEMP 37.2
[2016-12-18] MEDS: LITHIUM CARBONATE 300 MG TAB PO SCH (17:19)
[2016-12-18] MEDS: RIVAROXABAN 20 MG TAB PO SCH (20:49)
[2016-12-18] MEDS: RANITIDINE HCL 150 MG TAB PO SCH (20:50)
[2016-12-18] MEDS: NORTRIPTYLINE HCL 25 MG CAP PO SCH (20:51)
[2016-12-18] MEDS: MONTELUKAST SOD 10 MG TAB PO SCH (20:51)
[2016-12-18 23:15] VITALS: BP 96/62; PULSE 109; TEMP 37; O2SAT 87
[2016-12-19] MEDS: DEXTROSE 5% IV SCH ×4 (00:14→23:30)
[2016-12-19] MEDS: TAZOBACTAM IV SCH ×4 (00:14→23:30)
[2016-12-19] MEDS: CEFTOLOZANE IV SCH ×4 (00:14→23:30)
[2016-12-19] MEDS: LEVOTHYROXINE 25 MCG TAB PO SCH (06:26)
[2016-12-19 07:32] VITALS: BP 105/72; PULSE 81; TEMP 36.4; O2SAT 92
--- NOTE | 2016-12-19 08:46 | Hospitalist Progress Note ---
Hospitalist Progress Note Date of Service Dec 19, 2016. Subjective Pt evaluation today including: conversation w/ patient, conversation w/ family , physical exam, chart review, lab review, review of studies, conversation w/ industrial methods consultant (Dr. Charlton - [facility]), review of inpatient medication list Patient seen and evaluated with mother at bedside. Patient is feeling well and migraine resolved. Reports she did have worsening of her psych complaints likely from Phenergan. Other than this she states she feels great but hasn't had great sleep. Eager to return home. No longer having leg pain. They are working on the sidewalk to their home and therefore cannot safely get her inside. Constitutional: No fever, No chills Eyes: No worsening of vision ENT: No unusual epistaxis, No nasal symptoms, No trouble swallowing Respiratory: No cough, No shortness of breath Cardiovascular: No chest pain, No palpitations Abdomen: No pain, No nausea, No vomiting Musculoskeletal: No joint pain, No muscle pain Medications Current Inpatient Medications Medications (Trade) Dose Ordered Sig/Brenna Route Start Time Stop Time Status Last Admin Dose Admin Acetaminophen (Tylenol Tab) 650 mg Q4H PRN PO 12/14/16 14:30 01/13/17 14:29 Al Hydrox/Mg Hydrox/Simethicone (Maalox Max Susp) 15 ml Q4H PRN PO 12/14/16 14:30 01/13/17 14:29 Magnesium Hydroxide (Milk Of Magnesia Susp) 30 ml Q6H PRN PO 12/14/16 14:30 01/13/17 14:29 Polyethylene (Miralax Powder Packet) 17 gm DAILY PRN PO 12/14/16 14:30 01/13/17 14:29 Ondansetron HCl (Zofran Inj) 4 mg Q6H PRN IV 12/14/16 14:30 01/13/17 14:29 12/17/16 18:42 4 MG Benzonatate (Tessalon Perles Cap) 100 mg TID PRN PO 12/14/16 14:30 01/13/17 14:29 Clonazepam (Klonopin Tab) 0.5 mg BID PO 12/14/16 21:00 01/13/17 20:59 12/18/16 20:47 0.5 MG Cyanocobalamin (Vitamin B-12 Tab) 500 mcg DAILY PO 12/15/16 09:00 01/14/17 08:59 12/18/16 08:28 500 MCG Salmeterol Xinafoate/ Fluticasone (Advair Diskus 500/50 Inh) 1 puff BID INH 12/14/16 21:00 01/13/17 20:59 12/18/16 20:47 1 PUFF Gabapentin (Neurontin Cap) 300 mg TID PO 12/14/16 21:00 01/13/17 20:59 12/18/16 20:50 300 MG Hydroxyzine HCl (Vistaril Tab) 25 mg QD@1200 PO 12/15/16 12:00 01/14/17 11:59 12/18/16 11:55 25 MG Hyoscyamine Sulfate (Levsin Tab) 0.125 mg QID PO 12/14/16 17:00 01/13/17 16:59 12/18/16 20:48 0.125 MG Levothyroxine Sodium (Synthroid Tab) 25 mcg DAILYBB PO 12/15/16 06:30 01/14/17 06:59 12/19/16 06:26 25 MCG [place] Carbonate (Eskalith Cr Tab) 450 mg QAM PO 12/15/16 09:00 01/14/17 08:59 12/18/16 08:29 450 MG Meclizine HCl (Antivert Tab) 25 mg TID PRN PO 12/14/16 14:30 01/13/17 14:29 Montelukast Sodium (Singulair Tab) 10 mg HS PO 12/14/16 21:00 01/13/17 20:59 12/18/16 20:51 10 MG Nortriptyline HCl (Pamelor Cap) 100 mg HS PO 12/14/16 21:00 01/13/17 20:59 12/18/16 20:51 100 MG Ranitidine HCl (zANTac TAB) 150 mg HS PO 12/14/16 21:00 01/13/17 20:59 12/18/16 20:50 150 MG Risperidone (Risperdal Tab) 1 mg QAM PO 12/15/16 09:00 01/14/17 08:59 12/18/16 08:29 1 MG Risperidone (Risperdal Tab) 2 mg QPM PO 12/14/16 21:00 01/13/17 20:59 12/18/16 20:48 2 MG Rivaroxaban (Xarelto Tab) 20 mg HS PO 12/14/16 21:00 01/13/17 20:59 12/18/16 20:49 20 MG Topiramate (Topamax Tab) 75 mg BID PRN PO 12/14/16 14:30 01/13/17 14:29 12/15/16 22:42 75 MG Tramadol HCl (Ultram Tab) 50 mg TID PRN PO 12/14/16 14:30 01/13/17 14:29 12/15/16 20:51 50 MG Albuterol (Ventolin Hfa Inhaler) 2 puffs Q4H PRN INH 12/14/16 15:15 01/13/17 15:14 Cholecalciferol (Vitamin D Tab) 2,000 inter.unit DAILY PO 12/15/16 09:00 01/14/17 08:59 12/18/16 08:28 2,000 INTER.UNIT Miscellaneous Information (Order Awaiting Action) 1 ea QS N/A 12/14/16 16:00 01/13/17 15:59 Ferrous Sulfate (Feosol Tab) 325 mg BIDM PO 12/14/16 17:00 01/13/17 17:59 12/18/16 17:17 325 MG Hydroxyzine HCl (Vistaril Tab) 25 mg Q8H PRN PO 12/14/16 15:15 01/13/17 15:14 12/15/16 23:28 25 MG [place] Carbonate ([place] Carbonate Tab) 600 mg QDD PO 12/14/16 17:00 01/13/17 17:59 12/18/16 17:19 600 MG Miconazole Nitrate (Desenex Powder) 1 appln TID PRN EXT 12/14/16 15:15 01/13/17 15:14 12/14/16 21:02 1 APPLN Daptomycin 630 mg/ Sodium Chloride 62.6 ml @ 100 mls/hr Q24H IV 12/15/16 12:00 12/25/16 11:59 12/18/16 11:54 100 MLS/HR Lactobacillus Acidophilus (Floranex Tab) 4 tab TIDM PO 12/14/16 17:00 8/11/17 17:59 12/18/16 17:18 4 TAB Benztropine Mesylate (Cogentin Tab) 1 mg BID PO 12/14/16 21:00 01/13/17 20:59 12/18/16 20:49 1 MG Ipratropium [place] (Atrovent 0.02% 0.5MG/2.5ML Neb) 0.5 mg Q2H PRN INH 12/14/16 15:45 01/13/17 15:44 12/15/16 16:43 0.5 MG Levalbuterol (Xopenex 1.25MG/ 0.5ML Neb) 1.25 mg Q2H PRN INH 12/14/16 15:45 01/13/17 15:44 12/15/16 16:43 1.25 MG Pantoprazole Sodium (Protonix Tab) 40 mg QAM PO 12/16/16 09:00 01/15/17 08:59 12/18/16 08:28 40 MG Morphine Sulfate (MoRPHine SULFATE INJ) 2 mg Q4 PRN IV 12/16/16 11:00 12/30/16 10:59 Morphine Sulfate (MoRPHine SULFATE INJ) 4 mg Q4 PRN IV 12/16/16 11:00 12/30/16 10:59 12/16/16 23:01 4 MG Heparin Sodium (Porcine) (Heparin 100 Unit/ml 5ml Flush) 5 ml PRN PRN IV 12/16/16 23:45 01/15/17 23:44 12/19/16 05:40 5 ML Ceftolozane/ Tazobactam 1.5 gm/ Dextrose 111.4 ml @ 111.4 mls/ hr Q8H IV 12/19/16 00:00 12/24/16 13:59 12/19/16 00:14 111.4 MLS/HR Objective Vital Signs Date Time Temp Pulse Resp B/P (MAP) Pulse Ox O2 Delivery O2 Flow Rate FiO2 12/19/16 07:32 36.4 81 16 105/72 (83) 92 12/19/16 00:00 Room Air 12/18/16 23:15 37.0 109 20 96/62 (73) 87 Room Air 12/18/16 20:00 Room Air 12/18/16 16:00 Room Air 12/18/16 15:32 37.2 105 16 116/74 (88) Physical Exam General Appearance: WD/WN, no apparent distress Eyes: sclerae normal ENT: hearing grossly normal Neck: supple, no JVD, trachea midline Respiratory/Chest: lungs clear, normal breath sounds, no respiratory distress, no accessory muscle use Cardiovascular: regular rate, rhythm, no gallop, no murmur Abdomen: normal bowel sounds, non tender, soft Extremities: + pertinent finding (L laceration intact with some bruised/ blackened area around sutures; no erythema of surrounding skin) Neurologic/Psychiatric: alert, oriented x 3 Skin: normal color, warm/dry Laboratory Results Last 24 Hours Test 12/19/16 05:38 [place] Level 0.9 mMOL/L Assessment and Plan Ms. 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 Stitches placed for a traumatic laceration on December 08 L Amputation Stump Cellulitis S/P Laceration (December 08): - XR without evidence of bony involvement - Daptomycin at 6 mg/kg daily - DAY #11/09 - ID Following - plan for likely 7 day course - Wound following -- Xeroform and dry dressing changes daily, no need for debridement at this point -- F/U w/ Dr. Pak next week in clinic MDR Pseudomonas UTI with Suprapubic Catheter: - UCx- Pseudomonas, resistant to quinolones, aztreonam and imipenem - Zerbaxa 1.5 g IV Q8H (started on 12/14) per ID recommendations - DAY #67 Migraine Headache: - Did not respond to Maxalt alone - attempted Solu-Medrol, Phenergan, and Maxalt - she does not want narcotics L Hand Swelling: IMPROVING - continue to monitor Hypokalemia: RESOLVED Pulmonary Embolism - Xarelto 20 mg daily Asthma without Exacerbation: STABLE - Inhalers and Nebs PRN, Singulair 10 mg daily Spina Bifida/Neurogenic Bowel and Bladder S/P Suprapubic Catheter: - Levsin 0.125 mg QID - Daily saline flushes w/ 500 cc- nursing staff made aware and order placed Hydrocephalus S/P MICROGRAPHICS SERVICES SUPERVISOR Shunt: CT without evidence of acute changes Bipolar Disorder with Psychotic Features: STABLE - Reports continued intermittent hallucinations - follows with Dr. Goode with recent med changes - Cogentin 1 mg BID, [place] 250 mg AM and 600 PM, Pamelor 100 mg HS, Risperidone 1 mg AM and 2 mg PM, Hydroxyzine 25 mg @1200 and q8 hrs PRN - [place] level - 0.9 Hypothyroidism: Synthroid 25 mcg daily GI Prophylaxis: Protonix 40 mg daily DVT Prophylaxis: Xarelto Code Status: LEVEL I, FULL Dispo: From home, lives w/ mother - Cannot return home until Monday due to construction - will likely finish antibiotics tomorrow with no need for home infusions - Will plan for Zerbaxa at 0800 and Dapto at 0900 to infuse until approx. 10 - plan to D/C first thing in AM so patient can attend outpatient mental health appointment -- No further antibiotics will be necessary - discussed with ID Continued [facility] stay due to: multiple IV medications needed Discharge planning: home with home health
[2016-12-19] MEDS: FERROUS SULFATE 325 MG TAB PO SCH ×2 (08:53→17:45)
[2016-12-19] MEDS: BENZTROPINE MESYLATE 1 MG TAB PO SCH ×2 (08:54→21:28)
[2016-12-19] MEDS: LACTOBACILLUS ACIDOPHILUS (FLORANEX) TAB PO SCH ×3 (08:54→17:46)
[2016-12-19] MEDS: FLUTICASONE/SALMETEROL (ADVAIR) 500/50 INH 14 PUFF INH SCH ×2 (08:54→21:31)
[2016-12-19] MEDS: CLONAZEPAM 0.5 MG TAB PO SCH ×2 (08:55→21:27)
[2016-12-19] MEDS: PANTOprazole SOD 40 MG TAB PO SCH (08:55)
[2016-12-19] MEDS: RISPERIDONE 1 MG TAB PO SCH ×2 (08:55→21:28)
[2016-12-19] MEDS: HYOSCYAMINE SULFATE 0.125 MG SL TAB PO SCH ×4 (08:55→21:27)
[2016-12-19] MEDS: CHOLECALCIFEROL 1000 INTER.UNIT TAB PO SCH (08:55)
[2016-12-19] MEDS: GABAPENTIN 300 MG CAP PO SCH ×3 (08:55→21:29)
[2016-12-19] MEDS: CYANOCOBALAMIN 500 MCG TAB (VIT B-12) PO SCH (08:55)
[2016-12-19] MEDS: LITHIUM CARBONATE 450 MG TABCR PO SCH (08:57)
[2016-12-19] MEDS: DAPTOMYCIN IV SCH (12:33)
[2016-12-19] MEDS: SODIUM CHLORIDE 0.9% IV SCH (12:33)
[2016-12-19] MEDS: hydrOXYzine HCL 25 MG TAB PO SCH (12:33)
[2016-12-19] MEDS ORDERED: DiphenhydrAMINE HCL 50 MG/ML VIAL ONE (13:24)
[2016-12-19] MEDS ORDERED: NURSING VERBAL MED ORDER ONE ×2 (13:30→19:00)
[2016-12-19 15:04] VITALS: BP 81/48; PULSE 106; TEMP 36.4; O2SAT 99
--- NOTE | 2016-12-19 15:21 | Discharge Instructions ---
Discharge Instructions Date of Service Dec 19, 2016. Admission Reason for Admission: Cellulitis Discharge Discharge Diagnosis / Problem: Cellulitis Discharge Goals Goal(s): Decrease discomfort, Improve function, Increase independence Activity Recommendations Activity Limitations: resume your previous activity . Instructions / Follow-Up Instructions / Follow-Up L Amputation Stump Cellulitis with Laceration (December 08): - XRay did not show involvement of underlying bone infection - You have finished a 7 day course of antibiotics and will need to follow-up with wound care as an outpatient this week - Recommend removal of stitches in 14 days from time of placement or per instructions from wound care. MDR Pseudomonas UTI with Suprapubic Catheter: - You have received a 7 day course of antibiotics for this as well and will not need to go home with any - Continue to flush and change catheter as you previously did Home Medications: - Continue your home medications as previously prescribed Disposition: - Keep all outpatient appointments and recommend seeing your family doctor in 7- 10 days Current Hospital Diet Patient's current hospital diet: Regular Diet Discharge Diet Recommended Diet: Regular Diet Pending Studies Studies pending at discharge: no Medical Emergencies . Who to Call and When: Medical Emergencies: If at any time you feel your situation is an emergency, please call 911 immediately. . Non-Emergent Contact Non-Emergency issues call your: Primary Care Provider Call Non-Emergent contact if: you have a fever, your pain is concerning you, you have any medication questions . . "Provider Documentation" section prepared by Nelly Carlisle. . VTE Core Measure Inpt VTE Proph given/why not?: Other Anticoagulation (Xarelto)
[2016-12-19 16:10] VITALS: O2SAT 99
[2016-12-19] MEDS: LITHIUM CARBONATE 300 MG TAB PO SCH (17:47)
[2016-12-19 18:37] VITALS: BP 90/62; PULSE 101
[2016-12-19] MEDS ORDERED: DiphenhydrAMINE HCL 50 MG/ML VIAL IV ONE (19:00)
[2016-12-19] MEDS: RIVAROXABAN 20 MG TAB PO SCH (21:27)
[2016-12-19 21:30] VITALS: BP 115/70
[2016-12-19] MEDS: MONTELUKAST SOD 10 MG TAB PO SCH (21:30)
[2016-12-19] MEDS: RANITIDINE HCL 150 MG TAB PO SCH (21:30)
[2016-12-19] MEDS: NORTRIPTYLINE HCL 25 MG CAP PO SCH (21:31)
[2016-12-20 00:06] VITALS: BP 102/66; PULSE 98; TEMP 36.6; O2SAT 91
[2016-12-20] MEDS: LEVOTHYROXINE 25 MCG TAB PO SCH (06:13)
[2016-12-20 07:19] VITALS: BP 115/70; PULSE 94; TEMP 36.7; O2SAT 92
[2016-12-20] MEDS: DEXTROSE 5% IV SCH (07:38)
[2016-12-20] MEDS: CEFTOLOZANE IV SCH (07:38)
[2016-12-20] MEDS: TAZOBACTAM IV SCH (07:38)
[2016-12-20] MEDS: LACTOBACILLUS ACIDOPHILUS (FLORANEX) TAB PO SCH (07:43)
[2016-12-20] MEDS: FLUTICASONE/SALMETEROL (ADVAIR) 500/50 INH 14 PUFF INH SCH (07:43)
[2016-12-20] MEDS: FERROUS SULFATE 325 MG TAB PO SCH (07:43)
[2016-12-20] MEDS: CLONAZEPAM 0.5 MG TAB PO SCH (07:44)
[2016-12-20] MEDS: RISPERIDONE 1 MG TAB PO SCH (07:44)
[2016-12-20] MEDS: HYOSCYAMINE SULFATE 0.125 MG SL TAB PO SCH (07:44)
[2016-12-20] MEDS: GABAPENTIN 300 MG CAP PO SCH (07:44)
[2016-12-20] MEDS: LITHIUM CARBONATE 450 MG TABCR PO SCH (07:44)
[2016-12-20] MEDS: BENZTROPINE MESYLATE 1 MG TAB PO SCH (07:44)
[2016-12-20] MEDS: PANTOprazole SOD 40 MG TAB PO SCH (07:44)
[2016-12-20] MEDS: CHOLECALCIFEROL 1000 INTER.UNIT TAB PO SCH (07:45)
[2016-12-20] MEDS ORDERED: NURSING VERBAL MED ORDER ONE (09:30)
[2016-12-20] MEDS ORDERED: DiphenhydrAMINE HCL 50 MG/ML VIAL ONE (09:31)
[2016-12-20] MEDS: CYANOCOBALAMIN 500 MCG TAB (VIT B-12) PO SCH (09:35)
[2016-12-20] MEDS: SODIUM CHLORIDE 0.9% IV SCH (09:35)
[2016-12-20] MEDS: DAPTOMYCIN IV SCH (09:35)
[2016-12-20] MEDS ORDERED: DiphenhydrAMINE HCL 50 MG/ML VIAL IV ONE (09:45)
[2016-12-20 10:05] VITALS: BP 115/70; PULSE 94; TEMP 36.7; O2SAT 92
--- NOTE | 2016-12-20 14:18 | Discharge Summary ---
Discharge Summary Date of Service Dec 20, 2016. Discharge Summary Admission Date: Dec 14, 2016 at 14:33 Discharge Date: Dec 20, 2016 Discharge Disposition: Home with services Principal Diagnosis: LLE Cellulitis and MDR Pseudomonas UTI Problems/Secondary Diagnoses: 1. Myelominingocele/Spina Bifida 2. Neurogenic Bowel/Bladder S/P Suprapubic Catheter 3. Hydrocephalus S/P CROSSBAR SWITCH ADJUSTER Shunt 4. Asthma 5. Pulmonary Embolism 6. Bipolar Disorder with Psychotic Features 7. BANDAR 8. 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 There is cortical atrophy of the occipital lobes out of proportion to the remainder of the brain parenchyma. There is no hemorrhage, mass effect, or evidence of acute territorial ischemia by CT criteria. Benson-white matter is preserved. No extra-axial fluid collection is seen. Scattered parenchymal calcifications are noted. There is mild encephalomalacia in the right occipital lobe at the site of the previous catheter. Ventricles, sulci, cisterns: The ventricles are slitlike, and a right frontal approach ventricular catheter is unchanged in position, terminating in the frontal horn of the right ventricle. Ventricular caliber is unchanged from previous. There is prominence of the occipital cortical sulci, likely related to parenchymal atrophy. Intracranial vascular: The visualized intracranial vasculature at the skull base is normal in appearance. Calvarium: There are right frontal and right occipital dianne holes. Dolichocephaly is noted. Sinuses and mastoids: The visualized paranasal sinuses are clear. The mastoid air cells are well pneumatized. Orbits: The bony orbits are grossly intact. IMPRESSION: 1. 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 There is no acute intracranial abnormality. 2. A right frontal approach ventricular shunt catheter is unchanged in position. There has been no significant change in ventricular caliber from 10/10/2016. LEFT KNEE 1 OR 2 VIEWS ROUTINE FINDINGS: Prior left below the knee amputation. The bones are moderately demineralized with partial bony fusion of the distal most tibia and fibula. Small bone fragments are seen adjacent to the osseous amputation site, likely heterotopic ossifications. No erosive changes are seen to suggest osteomyelitis. There is mild stranding and prominence of the soft tissues without subcutaneous emphysema or other radiopaque foreign body. IMPRESSION: 1. Prior left lower extremity below the knee amputation without evidence of osteomyelitis or fracture. 2. Mild prominence of the amputation stump soft tissues. Consultations: 1. Infectious Disease 2. Wound Care Medication Reconciliation Continued Medications: Albuterol Sulfate (Proair Respiclick) 108 Mcg/Act Aer 2 PUFFS INH Q4-6HRS PRN for SOB/Wheezing Benzonatate (Tessalon Perles) 100 Mg Cap 100 MG PO TID PRN for Cough, CAP Benztropine Mesylate (Benztropine Mesylate) 1 Mg Tab 1 MG PO BID Cholecalciferol (Vitamin D) 2,000 Unit Cap 2000 INTER.UNIT PO DAILY Clonazepam (Klonopin) 0.5 Mg Tab 0.5 MG PO BID, TAB Cyanocobalamin (Vitamin B-12) 500 Mcg Tab 500 MCG PO DAILY Dihydroergotamine Mesylate (Migranal) 4 Mg/Ml [place] 1 SPRAY EDIE UD PRN for Migraine ONE SPRAY IN EACH NOSTRIL, REPEAT DOSE AFTER 15 MINUTES IF NEEDED. MAXIMUM 2 DOSES IN 24 HOURS AND 4 DOSES PER 7 DAYS. Docusate Sodium (Dulcolax Stool Softener) 100 Mg Cap 100 MG PO BID PRN for Constipation Ferrous Sulfate (Ferrous Sulfate) 325 Mg Tab 325 MG PO BID Fluticasone Prop/Salmeterol (Advair Diskus 500/50 60 Dose) 1 Ea Aerp 1 PUFF INH BID, INHALER Gabapentin (Gabapentin) 300 Mg Cap 300 MG PO TID Hydroxyzine Hcl (Atarax) 25 Mg Tab 25 MG PO QD@1200, TAB Hydroxyzine HCl (Hydroxyzine Pamoate) 25 Mg Tab 25 MG PO Q8 PRN for Anxiety Hyoscyamine Sulfate (Levsin) 0.125 Mg Tab 0.125 MG PO QID Indomethacin (Indomethacin) 25 Mg Cap 25 MG PO TID PRN for Headache TAKE THIS MEDICATION WITH FOOD Levalbuterol (Levalbuterol HCl) 0.63 Mg/3 Ml Nebu 3 ML NEB Q6-8HRS PRN for Shortness of Breath Levothyroxine Sodium (Levothyroxine Sodium) 25 Mcg Tab 25 MCG PO DAILY Linaclotide (Linzess) 290 Mcg Cap 290 MCG PO QAM [place] Carbonate ([place] Carbonate) 600 Mg Cap 600 MG PO QPM, CAP TAKE THIS MEDICATION WITH EVENING MEAL [place] Carbonate Er (Lithobid Ext Rel) 450 Mg Tab 450 MG PO QAM Meclizine Hcl (Meclizine Hcl) 25 Mg Tab 25 MG PO TID PRN for Dizziness or Vertigo, TAB Miconazole Nitrate (Topical) (Miconazole Nitrate) 1 Pow Pow 1 APPLN TOP TID PRN for Rash Montelukast Sod (Montelukast Sodium) 10 Mg Tab 10 MG PO HS Multiple Vitamin (Multivitamin) 1 Tab Tab 1 TAB PO DAILY, TAB Nortriptyline Hcl (Pamelor) 75 Mg Cap 75 MG PO HS, CAP TAKE ONE 75 MG CAPSULE ALONG WITH ONE 25 MG CAPSULE TO EQUAL BEDTIME DOSE OF 100 MG Nortriptyline Hcl (Pamelor) 25 Mg Cap 25 MG PO HS TAKE ONE 25 MG CAPSULE ALONG WITH ONE 75 MG CAPSULE TO EQUAL BEDTIME DOSE OF 100 MG Ondasetron Odt (Zofran Odt) 4 Mg Tab 4 MG SL Q8 PRN for Nausea, TAB Pantoprazole (Pantoprazole Sodium) 40 Mg Tab 40 MG PO QAM TAKE THIS MEDICATION ONCE DAILY 30 MINUTES BEFORE BREAKFAST Ranitidine Hcl (Zantac) 150 Mg Tab 150 MG PO HS, TAB Risperidone (Risperidone) 1 Mg Tab 1 MG PO QAM Risperidone (Risperdal) 1 Mg Tab 2 MG PO QPM, TAB Rivaroxaban (Xarelto) 20 Mg Tab 20 MG PO UD Sennosides (Senna Lax) 8.6 Mg Tab 8.6 MG PO DAILY Topiramate (Topiramate) 25 Mg Tab 75 MG PO BID PRN for Headache Tramadol HCl (Tramadol HCl) 50 Mg Tab 50 MG PO TID PRN for Pain Wound Dressings (Hydrofera Blue Foam Dress) 1 Pad Pad 1 EA EXT UD 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 Discharge Exam Review of Systems: Constitutional: No fever, No chills Eyes: No worsening of vision ENT: No nasal symptoms, No sore throat, No trouble swallowing Respiratory: No cough, No shortness of breath Cardiovascular: No chest pain, No palpitations Abdomen: No pain, No nausea, No vomiting Genitourinary - Female: No dysuria Hematologic / Lymphatic: No abnormal bleeding/bruising Integumentary: + problem reported (intermittent rash improved with Benadryl) , No rash, No itch Physical Exam: General Appearance: WD/WN, no apparent distress Eyes: sclerae normal ENT: hearing grossly normal Neck: supple, no JVD, trachea midline Respiratory/Chest: lungs clear, normal breath sounds, no respiratory distress, no accessory muscle use Cardiovascular: regular rate, rhythm, no gallop, no murmur Abdomen / GI: normal bowel sounds, non tender, soft Extremities: + pertinent finding (laceration that is well-approximated to L stump without overlying erythema of skin) Neurologic/Psychiatric: alert, oriented x 3 Skin: normal color, warm/dry Hospital Course ADMISSION: Ms. 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 Patient was in the ED on December 08 for a laceration of the L stump and had stitches placed. She bumped her leg at [place] while in her wheelchair. Since placement of the stitches she reports the erythema, edema, and purulent drainage increased. She denies pain directly at the site but reports L upper leg pain that has been ongoing since this laceration. Over the past few days she reports increasing fatigue and R sided leaning. This right sided leaning is concerning for the patient and mother who have seen neurology about this and no definitive answers. This complaint is not a new finding. She also reports recent changes in psychiatric medications by Dr. Goode including stopping Abilify, adding Benztropine, changing Atarax to the AM instead of noon, and changing Risperidone to 1 mg in AM and 2 mg in PM. Patient reports that she has had ongoing issues with hallucinations that are still present. She has had an ongoing issues with MDR Pseudomonas UTI with chronic suprapubic catheter. Last catheter change was December 11 and it gets changed every other week. She also utilizes nightly saline flushes. Mother notes she has had multiple bouts of diarrhea and patient reporting suprapubic pain and back pain. She was recently admitted for PE and reports chronic SOB that has not worsened. She also has a history of asthma and states she hasn't had to use her inhalers. She utilizes Tessalon perles for her cough that gives relief. She denies fevers (states she does not register fevers ) but reports intermittent chills. She denies CP, N/V, constipation, melena/ hematochezia. HOSPITAL COURSE: Ms. Chairez was admitted for L amputation stump cellulitis due to a laceration on December 08 and MDR Pseudomonas UTI. She was placed on Daptomycin for skin and Zerbaxa for UTI due to resistance and allergies. Patient noted to get minimal hives from Zerbaxa but tolerated with Benadryl administration. She completed a 7 day course while admitted and does not need continued upon discharge. Plan for F/U with wound and ID in the next few days. A few sutures were removed with plans to remove the remaining sutures in the next couple days as well. Cellulitis improved and denies urinary symptoms. She will continue with suprapubic catheter changes and daily flushes. Patient is hemodynamically stable and suitable for discharge home with [facility]. Total Time Spent: Greater than 30 minutes This includes examination of the patient, discharge planning, medication reconciliation, and communication with other providers. Discharge Instructions Please refer to the electronic Patient Visit Report (Discharge Instructions) for additional information. Additional Copies To Laura Gonzalez PAC
== END 2016-12-20 11:40 | disposition home health service (06) | DRG 565 ==
LOC: C.EDB 10:49 → C.MS2W 14:33 → ENRESERV 14:54
PROVIDERS: ADMIT Internal Medicine; ATTEND Hospitalist
DX: T87.44 Infection of amputation stump, left lower extremity (principal); N39.0 Urinary tract infection, site not specified; K59.2 Neurogenic bowel, not elsewhere classified; Z68.45 Body mass index [BMI] 70 or greater, adult; B96.5 Pseudomonas (aeruginosa) (mallei) (pseudomallei) as the cause of diseases classified elsewhere; R19.7 Diarrhea, unspecified; K31.84 Gastroparesis; E03.9 Hypothyroidism, unspecified; N31.9 Neuromuscular dysfunction of bladder, unspecified; F31.9 Bipolar disorder, unspecified; E87.6 Hypokalemia; G43.909 Migraine, unspecified, not intractable, without status migrainosus; Z89.512 Acquired absence of left leg below knee; Z89.511 Acquired absence of right leg below knee; J45.909 Unspecified asthma, uncomplicated; F41.9 Anxiety disorder, unspecified; Z79.01 Long term (current) use of anticoagulants; Z79.899 Other long term (current) drug therapy; E66.9 Obesity, unspecified; Z98.2 Presence of cerebrospinal fluid drainage device; Z86.711 Personal history of pulmonary embolism; Z86.14 Personal history of Methicillin resistant Staphylococcus aureus infection; K21.9 Gastro-esophageal reflux disease without esophagitis; Z91.040 Latex allergy status; Z88.3 Allergy status to other anti-infective agents; Z88.2 Allergy status to sulfonamides; Z88.8 Allergy status to other drugs, medicaments and biological substances; Z80.9 Family history of malignant neoplasm, unspecified; Z83.3 Family history of diabetes mellitus; Z83.6 Family history of other diseases of the respiratory system

== ENCOUNTER 2017-01-11 18:53 | Emergency (ER) | payer BC, OTHER ==
[~2017-01-11 18:53] MED LIST changes: -ADVIN50/60 INH; -ALBU18002 INH; -ARIP1TAB PO; -CGN1X PO; -CHOL200010 PO; -CLON0.5T3 PO; +DFL100 PO; -DOCU-105 PO; -FERR325T PO; -GABA1CAP4 PO; -HYOS1TAB PO; -INDO1CAP34 PO; -LINA1CAP2 PO; -LITH1TAB PO; -LITH600C PO; -MECL1TAB42 PO; -MGRSP NAE; -MULTTAB58 PO; -NORT75CA PO; -NRT/25 PO; -ONDA4TAB10 SL; -PRT/40 PO; -RIVA1.5T PO; -RSP1 PO; -SENN8.6T13 PO; -SNG10 PO; -ULT50 PO; -VTMB12 PO; -WOUN1PAD EXT; -ZNT/150 PO
[2017-01-11 18:56] VITALS: Ht 119.4 cm
[2017-01-11] MEDS ORDERED: FLUC100T4 PO (19:25)
[2017-01-11] MEDS ORDERED: MoRPHine SULFATE 4 MG/ML 1 ML CARP\\VIAL IV STA (19:29)
[2017-01-11] MEDS ORDERED: ONDANSETRON INJ 2 MG/ML 2 ML VIAL IV STA (19:29)
[2017-01-11] MEDS ORDERED: SODIUM CHLORIDE 0.9% 1000ML 1,000 ML IV SCH (19:30)
--- NOTE | 2017-01-11 20:27 | DIAGNOSTIC IMAGING REPORT ---
CT HEAD WITHOUT CONTRAST (CT) CLINICAL HISTORY: Headache. Ventricular shunt. COMPARISON STUDY: 12/14/2016 TECHNIQUE: Axial CT of the brain is performed from the vertex to the skull base. IV contrast was not administered for this examination. A dose lowering technique was utilized adhering to the principles of ALARA. CT DOSE: 537.48 mGy.cm FINDINGS: No intra or extra-axial mass lesions are visualized. There is a right frontal shallow catheter which terminates in the region of the septum pellucidum. This remains unchanged. There is no hydrocephalus. The ventricles are diminutive. There is stable fullness at the level the foramen magnum. A Chiari malformation cannot be excluded. There is parasagittal posterior parietal occipital lobe atrophy. There is no acute hemorrhage. 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 No change in the position of the right frontal ventricular shunt catheter. No change in ventricular size. No evidence of hydrocephalus. Electronically signed by: Yair Morrison M.D. 01/11/2017 8:25 PM Dictated Date/Time: 01/11/2017 8:20 PM
[2017-01-11] MEDS ORDERED: RIVA1.5T PO (20:28)
--- NOTE | 2017-01-11 20:34 | EMERGENCY ROOM VISIT NOTE ---
History First contact with patient: 19:15 Chief Complaint: HEADACHE Stated Complaint: SHUNT ISSUES History of Present Illness The patient is a 31 year old female who presents to the Emergency Room with complaints of severe headache for approximately 1 week. It is an all over throbbing sensation. She also reports nausea without vomiting. She denies any changes in vision. She denies any neck pain. No fever or chills. No recent illnesses. The patient has a history of chronic migraines. She also has a history of congenital defects including spina bifida. She has had several CAR PORTER shunts placed. The last one was placed in March 2016. The patient says that when she has problems with her shunt, she has similar symptoms and she is experiencing today. The patient has tried her perception medications including Ultram with minimal relief. The patient was seen by neurology 2 weeks ago. She had a CT of the head. It was reportedly normal. The patient follows with Dr. Garrett from [place] Review of Systems 10 system review performed and negative unless noted in HPI or below Past Medical/Surgical History Medical Problems: (1) Allergic reaction caused by a drug (2) Anxiety (3) Asthma exacerbation (4) Bipolar 1 disorder (5) Cellulitis (6) Depression (7) Gastroparesis (8) GERD (gastroesophageal reflux disease) (9) Hydrocephalus (10) Intractable headache (11) Migraines (12) MRSA (methicillin resistant Staphylococcus aureus) (13) Osteomyelitis (14) Pulmonary embolism (15) Shunt placement with revision x8 (16) Spina bifida (17) UTI (urinary tract infection) Surgical Problems: (1) S/P BKA (below knee amputation) bilateral Family History Cancer Diabetes mellitus Lung disease Social History Smoking Status: Never Smoker Alcohol Use: none Drug Use: none Marital Status: single Housing Status: lives with family Occupation Status: disabled Current/Historical Medications Scheduled Benztropine Mesylate (Benztropine Mesylate), 1 MG PO BID Cholecalciferol (Vitamin D), 2,000 INTER.UNIT PO DAILY Clonazepam (Klonopin), 0.5 MG PO BID Cyanocobalamin (Vitamin B-12), 500 MCG PO DAILY Ergotamine Tartrate (Ergomar), 2 MG PO UD Ferrous Sulfate (Ferrous Sulfate), 325 MG PO BID Fluticasone Prop/Salmeterol (Advair Diskus 500/50 60 Dose), 1 PUFF INH BID Gabapentin (Gabapentin), 300 MG PO TID Hydroxyzine Hcl (Atarax), 50 MG PO HS Hyoscyamine Sulfate (Levsin), 0.125 MG PO TID Levothyroxine Sodium (Levothyroxine Sodium), 25 MCG PO DAILY Linaclotide (Linzess), 290 MCG PO QAM [place] Carbonate ([place]ridge Carbonate), 600 MG PO QPM [place] Carbonate Er (Lithobid Ext Rel), 450 MG PO QAM Montelukast Sod (Montelukast Sodium), 10 MG PO HS Multiple Vitamin (Multivitamin), 1 TAB PO DAILY Nitrofurantoin Monohyd Macrocr (Macrobid), 100 MG PO BID Nortriptyline Hcl (Pamelor), 75 MG PO HS Nortriptyline Hcl (Pamelor), 25 MG PO HS Nystatin (Topical) (Nystop), 1 APPLN TOP PRN Pantoprazole (Pantoprazole Sodium), 40 MG PO QAM Probiotic Product (Probiotic), 1 CAP PO DAILY Ranitidine Hcl (Zantac), 150 MG PO HS Risperidone (Risperidone), 1 MG PO BID Rivaroxaban (Xarelto), 15 MG PO BID Sennosides (Senna Lax), 8.6 MG PO DAILY Topiramate (Trokendi Xr), 100 MG PO BID Wound Dressings (Hydrofera Blue Foam Dress), 1 EA EXT UD Scheduled PRN Albuterol Sulfate (Proair Respiclick), 2 PUFFS INH Q4-6HRS PRN for SOB/Wheezing Benzonatate (Tessalon Perles), 100 MG PO TID PRN for Cough Dihydroergotamine Mesylate (Migranal), 1 SPRAY EDIE UD PRN for Migraine Docusate Sodium (Dulcolax Stool Softener), 100 MG PO BID PRN for Constipation Indomethacin (Indomethacin), 25 MG PO 2XWK PRN for Headache Levalbuterol (Levalbuterol HCl), 3 ML NEB Q6-8HRS PRN for Shortness of Breath Meclizine Hcl (Meclizine Hcl), 25 MG PO TID PRN for Dizziness or Vertigo Ondasetron Odt (Zofran Odt), 4 MG SL Q8 PRN for Nausea Tramadol HCl (Tramadol HCl), 50 MG PO Q4 PRN for Pain Physical Exam Vital Signs Date Time Temp Pulse Resp B/P (MAP) Pulse Ox O2 Delivery O2 Flow Rate FiO2 01/12/17 00:18 75 20 126/78 99 Room Air 01/11/17 21:33 92 01/11/17 21:06 91 20 113/60 97 Room Air 01/11/17 18:56 36.4 97 20 119/80 98 Room Air Physical Exam VITALS: Vitals are noted on the nurse's note and reviewed by myself. Vital signs stable. GENERAL: 31-year-old female, obese in a wheelchair, SKIN: The skin was warm and dry HEAD: Normocephalic atraumatic. EARS: External auditory canals clear, tympanic membranes pearly olivo without erythema or effusion bilaterally. EYES: Pupils are dilated, equal round and reactive to light and accommodation. Conjunctivae without injection, sclerae without icterus. MOUTH: Mucous membranes somewhat dry. NECK: Supple without nuchal rigidity.. Cervical spine is nontender. No JVD. HEART: Regular rate and rhythm without murmurs gallops or rubs. LUNGS: Clear to auscultation bilaterally without wheezes, rales or rhonchi. No accessory muscle use. ABDOMEN: Positive bowel sounds x 4.Soft, nontender, without organomegaly. No guarding or rebound tenderness. MUSCULOSKELETAL: No muscle atrophy, erythema, or edema noted. Dressings to the bilateral stumps. NEURO: Patient was alert and oriented to person place and time. . Speech is slurred. Slow to answer some questions, however answering appropriately. Cranial nerves grossly appear intact. Slight right sided weakness of the right upper and right lower extremity at 4/5 noted when compared to the left upper and left lower extremity. (Reportedly chronic). Cerebellar function intact. Medical Decision & Procedures ER Provider Diagnostic Interpretation: CT HEAD WITHOUT CONTRAST (CT) CLINICAL HISTORY: Headache. Ventricular shunt. COMPARISON STUDY: 12/14/2016 TECHNIQUE: Axial CT of the brain is performed from the vertex to the skull base. IV contrast was not administered for this examination. A dose lowering technique was utilized adhering to the principles of ALARA. CT DOSE: 537.48 mGy.cm FINDINGS: No intra or extra-axial mass lesions are visualized. There is a right frontal shallow catheter which terminates in the region of the septum pellucidum. This remains unchanged. There is no hydrocephalus. The ventricles are diminutive. There is stable fullness at the level the foramen magnum. A Chiari malformation cannot be excluded. There is parasagittal posterior parietal occipital lobe atrophy. There is no acute hemorrhage. 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 No change in the position of the right frontal ventricular shunt catheter. No change in ventricular size. No evidence of hydrocephalus. Electronically signed by: Yair Morrison M.D. 01/11/2017 8:25 PM Dictated Date/Time: 01/11/2017 8:20 PM The status of this report is Signed. Draft = Not yet reviewed or approved by Radiologist. Signed = Reviewed and approved by Radiologist. Laboratory Results 01/11/17 21:41 Red Blood Count 4.03, Mean Corpuscular Volume 96.0, Mean Corpuscular Hemoglobin 30.0, Mean Corpuscular Hemoglobin Concent 31.3, Mean Platelet Volume 9.7, Neutrophils (%) (Auto) 67.1, Lymphocytes (%) (Auto) 21.2, Monocytes (%) (Auto) 6.7, Eosinophils (%) (Auto) 4.2, Basophils (%) (Auto) 0.5, Neutrophils # (Auto) 6.65, Lymphocytes # (Auto) 2.10, Monocytes # (Auto) 0.66, Eosinophils # (Auto) 0.42, Basophils # (Auto) 0.05 01/11/17 21:41 Test 01/11/17 20:08 01/11/17 21:41 Urine Color YELLOW Urine Appearance CLOUDY (CLEAR) Urine pH 6.0 (4.5-7.5) Urine Specific [place] 1.013 (1.000-1.030) Urine Protein TRACE (NEG) Urine Glucose (UA) NEG (NEG) Urine Ketones NEG (NEG) Urine Occult Blood 2+ (NEG) Urine Nitrite POS (NEG) Urine Bilirubin NEG (NEG) Urine Urobilinogen NEG (NEG) Urine Leukocyte Esterase LARGE (NEG) Urine WBC (Auto) >30 /hpf (0-5) Urine RBC (Auto) 10-30 /hpf (0-4) Urine Hyaline Casts (Auto) 1-5 /lpf (0-5) Urine Epithelial Cells (Auto) >30 /lpf (0-5) Urine Bacteria (Auto) 4+ (NEG) Urine Test NEG (NEG) White Blood Count 9.91 K/uL (4.8-10.8) Red Blood Count 4.03 M/uL (4.2-5.4) Hemoglobin 12.1 g/dL (12.0-16.0) Hematocrit 38.7 % (37-47) Mean Corpuscular Volume 96.0 fL (80-100) Mean Corpuscular Hemoglobin 30.0 pg (25-34) Mean Corpuscular Hemoglobin Concent 31.3 g/dl (32-36) Platelet Count 302 K/uL (130-400) Mean Platelet Volume 9.7 fL (7.4-10.4) Neutrophils (%) (Auto) 67.1 % Lymphocytes (%) (Auto) 21.2 % Monocytes (%) (Auto) 6.7 % Eosinophils (%) (Auto) 4.2 % Basophils (%) (Auto) 0.5 % Neutrophils # (Auto) 6.65 K/uL (1.4-6.5) Lymphocytes # (Auto) 2.10 K/uL (1.2-3.4) Monocytes # (Auto) 0.66 K/uL (0.11-0.59) Eosinophils # (Auto) 0.42 K/uL (0-0.5) Basophils # (Auto) 0.05 K/uL (0-0.2) RDW Standard Deviation 53.8 fL (36.4-46.3) RDW Coefficient of Variation 15.3 % (11.5-14.5) Immature Granulocyte % (Auto) 0.3 % Immature Granulocyte # (Auto) 0.03 K/uL (0.00-0.02) Red Blood Cell Morphology Unremarkable Anion Gap 7.0 mmol/L (3-11) Estimated GFR () 141.2 Estimated GFR (Non- 121.9 BUN/Creatinine Ratio 11.9 (10-20) Calcium Level 8.8 mg/dl (8.5-10.1) Magnesium Level 2.2 mg/dl (1.8-2.4) Total Bilirubin 0.3 mg/dl (0.2-1) Aspartate Amino Transf (AST/SGOT) 12 U/L (15-37) Alanine Aminotransferase (ALT/SGPT) 24 U/L (12-78) Alkaline Phosphatase 108 U/L (45-117) Ammonia 12.0 umol/L (11-32) Total Protein 6.9 gm/dl (6.4-8.2) Albumin 2.8 gm/dl (3.4-5.0) Globulin 4.1 gm/dl (2.5-4.0) Albumin/Globulin Ratio 0.7 (0.9-2) Medications Administered Medications (Trade) Dose Ordered Sig/Brenna Route Start Time Stop Time Status Last Admin Dose Admin Morphine Sulfate (MoRPHine SULFATE INJ) 4 mg ONE STAT IV 01/11/17 19:29 01/11/17 19:33 DC 01/11/17 21:47 4 MG Ondansetron HCl (Zofran Inj) 4 mg NOW STAT IV 01/11/17 19:29 01/11/17 19:33 DC 01/11/17 21:47 4 MG Sodium Chloride 1,000 ml @ 200 mls/hr Q5H IV 01/11/17 19:30 02/10/17 19:29 01/11/17 21:52 200 MLS/HR Potassium Chloride (Kcl 10 Meq / Wtr) 10 meq NOW STAT IV 01/11/17 22:45 01/11/17 23:03 DC 01/11/17 23:23 10 MEQ Nitrofurantoin Macrocrystals (Macrobid Cap) 100 mg NOW STAT PO 01/12/17 00:04 01/12/17 00:05 DC 01/12/17 00:20 100 MG Morphine Sulfate (MoRPHine SULFATE INJ) 4 mg ONE STAT IV 01/12/17 00:05 01/12/17 00:06 DC 01/12/17 00:21 4 MG ED Course Patient was seen and examined Vital signs including blood pressure were reviewed medications list was verified with patient Labs were obtained, and a saline lock was established The patient was given morphine 4 mg IV and Zofran 4 mg IV. She was hydrated with 1 L of normal saline. Imaging was performed and reviewed The patient was reassessed. She was still complaining of some pain. She was given an additional dose of morphine 4 mg IV. The case was discussed with the neurosurgery team at [facility]. They did not recommend any further imaging. She will follow-up with her neurosurgeon in the next 1-2 weeks. The case was discussed with the [facility] hospitalist team personally evaluated the patient. They do not feel that the patient meets criteria for admission. They recommended possibly starting the patient on Macrobid, sending a urine culture and discharging her home. The patient is in agreement with this plan. Medical Decision Differential includes: Hydrocephalus, Acute intracranial bleed, trauma, meningitis, encephalitis, increased intracranial pressure, mass or mass effect, facial or dental infection, temporal arteritis, CVA, TIA, acute hypertensive emergency, sinusitis, carbon monoxide exposure, UTI, sepsis, This patient is a 31-year-old female suffers from congenital abnormalities including hydrocephalus, spina bifida and has a CAR PORTER shunt. She is complaining of a headache but does not feel like her typical migraine. She says that this is a typical headache that she gets when she has problems with her shunt. A CT scan was done and compared to the previous CT done a few weeks ago. No acute abnormalities were noted. There is no change in the size of the ventricles. The CAR PORTER shunt is in good position. Her urinalysis does appear to be positive for a UTI. The case was also discussed with hospitalist. Given the fact that she is afebrile and does not have a white count, they do not feel that she needs to be admitted. They recommended treating her with possibly Macrobid, sending a urine culture, and discharge her home. The patient did have slurred speech on exam. I would however likely treat this to polypharmacy. The patient was discharged with a prescription for Macrobid. She was instructed to continue her pain medications as prescribed. She was given a home pack of Teller for additional pain relief overnight. She will follow-up with her primary care physician in addition to her neurosurgeon. She was urged to return to the emergency department with any new or worsening symptoms. Medication Reconcilliation Current Medication List: was personally reviewed by me Blood Pressure Screening Patient's blood pressure: Normal blood pressure Impression Primary Impression: Headache Additional Impressions: Hypokalemia UTI (urinary tract infection) Departure Information Dispostion Home / Self-Care Condition FAIR Prescriptions Nitrofurantoin Monohyd Macrocr (Macrobid) 100 Mg Cap 100 MG PO BID, #20 TAB Prov: Hailee Vásquez PA-C 01/12/17 Referrals Laura Gonzalez,P.A. (PCP) Patient Instructions Headache Pain, My [facility] Additional Instructions You had been evaluated in the emergency department for a headache and associated symptoms such as slurred speech and nausea. A CT scan of your head was performed. No abnormalities were noted with your CAR PORTER shunt. Your potassium was slightly low. This was replaced in the emergency department. It was also noted that you appear to have a UTI. You had been given a prescription for Macrobid. This is to be taken twice daily. A urine culture was also sent. This should be back within the next 48 hours. If there is any need to change your medications, you will be notified by phone. Please continue your other medications as prescribed. You have been provided a home pack of hydrocodone. You may take 1-2 pills every 4 hours tonight as needed for headache. Please follow-up with your primary care physician within the next 3-5 days. Please also follow up with your neurosurgeon within the next 1-2 weeks. Please return to the emergency department with any new or worsening symptoms. Problem Qualifiers
[2017-01-11 20:55] LABS: URINE APPEARANCE CLOUDY (CLEAR); URINE BILIRUBIN NEG (NEG); URINE COLOR YELLOW; URINE EPITHELIAL CELL AUTO >30 /lpf (0-5); URINE NITRITE POS (NEG); URINE SPECIFIC GRAVITY 1.013 (1.000-1.030); UROBILINOGEN NEG (NEG)
[2017-01-11 20:56] LABS: MANUAL MICROSCOPIC REQUIRED? NO; REVIEW REQ? NO
[2017-01-11 21:05] LABS: PREG INTERNAL NEGATIVE QC NEG CLEAR BACKGROUND; PREG INTERNAL POSITIVE QC POS CONTROL LINE
[2017-01-11 21:58] LABS: HEMATOCRIT 38.7 % (37-47); MEAN CORPUSCULAR HGB CONC 31.3 g/dl (32-36); MEAN PLATELET VOLUME 9.7 fL (7.4-10.4); PLATELET COUNT 302 K/uL (130-400); RED BLOOD COUNT 4.03 M/uL (4.2-5.4); WHITE BLOOD COUNT 9.91 K/uL (4.8-10.8)
[2017-01-11 22:08] LABS: ALT/SGPT 24 U/L (12-78); BLOOD UREA NITROGEN 7 mg/dl (7-18); BUN/CREATININE RATIO 11.9 (10-20); CALCIUM 8.8 mg/dl (8.5-10.1); CARBON DIOXIDE 25 mmol/L (21-32); CHLORIDE 109 mmol/L (98-107); CREATININE 0.62 mg/dl (0.60-1.20); GLUCOSE 110 mg/dl (70-99); MAGNESIUM 2.2 mg/dl (1.8-2.4); POTASSIUM 3.1 mmol/L (3.5-5.1); SODIUM 141 mmol/L (136-145)
[2017-01-11 22:11] LABS: ALB/GLOB RATIO 0.7 (0.9-2); ALKALINE PHOSPHATASE 108 U/L (45-117); AST/SGOT 12 U/L (15-37)
[2017-01-11] MEDS ORDERED: NSS + 20MEQ KCL 1000ML 1,000 ML IV SCH (22:45)
[2017-01-11] MEDS ORDERED: POTASSIUM CHLORIDE 10 MEQ / 100ML WTR IV STA (22:45)
[2017-01-11 23:08] LABS: BASO % 0.5 %; BASO ABS # 0.05 K/uL (0-0.2); COMPLETE YES; EOS % 4.2 %; IG% 0.3 %; LYMPH % 21.2 %; MONO % 6.7 %; NEUT % 67.1 %
[2017-01-12] MEDS ORDERED: NITROFURANTOIN MONOHYDRATE 100 MG CAP PO STA (00:04)
[2017-01-12] MEDS ORDERED: MoRPHine SULFATE 4 MG/ML 1 ML CARP\\VIAL IV STA (00:05)
[2017-01-12] MEDS ORDERED: NITR-5 PO (00:14)
[2017-01-12] MEDS ORDERED: MOTRIN HOME PACK 600 MG (4)BTL PO ONE (00:15)
[2017-01-12 01:10] VITALS: BP 126/78; PULSE 74; TEMP 36.4; O2SAT 99
--- NOTE | 2017-01-12 02:26 | Medical Consult ---
Consultation Date of Consultation: Jan 12, 2017. Attending Physician: Reason for Consultation: Questions regarding headache and interpretation of a urinalysis History of Present Illness Ms. 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 Patient was convinced that this was due to her [employer] shunt. Her neurosurgery team from [place] was called by the ED team and they did not feel she required further workup beyond her CT head. They will be following up with her in 2 weeks. The patient reports that this is happening in the past, her last checkup with him was a month ago and she denied any changes. We discussed that we were consulted to admit her to the hospital for UTI. She was recently treated for UTI with a 5th-generation cephalosporin due to her urine cultures demonstrating resistance to multiple medications, and the patient 's multiple drug allergies. She denied any hematuria, dysuria, but did report urinary frequency. She does have an indwelling suprapubic catheter. She reports that the sample obtained with a likely dirty because it was taken from different port than usual, and there was some difficulty obtaining it. She reports she normally takes Macrobid at home for UTI only when it is proven by culture. She is able to tolerate PO food and liquids. She denies any CVA tenderness. Past Medical/Surgical History Medical Problems: (1) Acute pyelonephritis Status: Acute (2) Allergic reaction Status: Acute (3) Allergic reaction Status: Acute (4) Asthma with exacerbation Status: Acute (5) Chronic UTI (urinary tract infection) Status: Acute (6) Complicated urinary tract infection Status: Acute (7) Delusions Status: Acute (8) Gabapentin overdose Status: Acute (9) Headache Status: Acute (10) Hypokalemia Status: Acute (11) Hypokalemia Status: Acute (12) Intractable headache Status: Acute (13) Laceration Status: Acute (14) Low back pain Status: Acute (15) Lower abdominal pain Status: Acute (16) Lower abdominal pain Status: Acute (17) Mood disorder Status: Acute (18) Mood disorder Status: Acute (19) Multiple drug resistant organism (MDRO) culture positive Status: Acute (20) Nausea Status: Acute (21) Paranoia Status: Acute (22) Pelvic pain Status: Acute (23) Right flank pain Status: Acute (24) Right leg pain Status: Acute (25) Self-harming behavior Status: Acute (26) Shunt malfunction Status: Acute (27) Shunt malfunction Status: Acute (28) Suicidal ideation Status: Acute (29) Suicidal ideation Status: Acute (30) Suprapubic pain Status: Acute (31) Urinary tract infection Status: Acute (32) Urinary tract infection Status: Acute (33) Urinary tract infection Status: Acute (34) UTI (urinary tract infection) Status: Acute (35) UTI (urinary tract infection) Status: Acute (36) Weakness Status: Acute Family History Cancer Diabetes mellitus Lung disease Social History Smoking Status: Never Smoker Smokeless Tobacco Use: No Alcohol Use: none Drug Use: none Marital Status: single Housing Status: lives with family Occupation Status: disabled Allergies Coded Allergies: Adhesives (Verified Allergy, Intermediate, TAPE- HIVES, 12/14/16) Ceftriaxone (Verified Allergy, Intermediate, rash, 12/14/16) Chlorhexidine (Verified Allergy, Intermediate, RASH, 12/14/16) Ciprofloxacin (Verified Allergy, Intermediate, hives, 12/14/16) Latex (Verified Allergy, Intermediate, hives, 12/14/16) Levofloxacin (Verified Allergy, Intermediate, rash, 12/14/16) Linezolid (Verified Allergy, Intermediate, rash, 12/14/16) Piperacillin (Verified Allergy, Intermediate, SEVERE RASH, HIVES, 12/14/16) Tazobactam (Verified Allergy, Intermediate, SEVERE RASH, HIVES, 12/14/16) Vancomycin (Verified Allergy, Intermediate, rash, 12/14/16) Tobramycin (Verified Allergy, Mild, MILD RASH ON ARM, RED FACE, 12/14/16) IMPROVED AFTER BENADRYL, TAKING REST OF DOSE Amikacin (Verified Allergy, Unknown, PER DR ROBINS,RXN WAS TO ZOSYN NOT AMKrash;hives, 12/14/16) Sulfamethoxazole w/Trimethoprim (Verified Allergy, Unknown, Hives, 12/14/16 ) Can be pretreated with 10mg Zytrec 45 min prior to admin Home Medications Reported Home Medications Medications Dose Route/Sig Max Daily Dose Days Date Category Dose Instructions Macrobid (Nitrofurantoin Macrocrystals) 100 Mg Cap 100 Mg PO BID 01/12/17 Rx Trokendi Xr (Topiramate) 100 Mg Cap 100 Mg PO BID 01/11/17 Reported Xarelto (Rivaroxaban) 15 Mg Tab 15 Mg PO BID 01/11/17 Reported Probiotic (Probiotic Product) 1 Cap Cap 1 Cap PO DAILY 01/11/17 Reported Nystop (Nystatin (Topical)) 100,000 Unit/Gm Pow 1 Appln TOP PRN 01/11/17 Reported Ergomar (Ergotamine Tartrate) 2 Mg Sub 2 Mg PO UD 01/11/17 Reported Dulcolax Stool Softener (Docusate Sodium) 100 Mg Cap 100 Mg PO BID PRN 12/08/16 Reported Senna Lax (Sennosides) 8.6 Mg Tab 8.6 Mg PO DAILY 12/08/16 Reported Zantac (Ranitidine Hcl) 150 Mg Tab 150 Mg PO HS 12/08/16 Reported Tramadol HCl 50 Mg Tab 50 Mg PO Q4 PRN 12/08/16 Reported Ferrous Sulfate 325 Mg Tab 325 Mg PO BID 12/08/16 Reported Zofran Odt (Ondansetron HCl) 4 Mg Tab 4 Mg SL Q8 PRN 12/08/16 Reported Levalbuterol HCl (Levalbuterol) 0.63 Mg/3 Ml Nebu 3 Ml NEB Q6-8HRS PRN 12/08/16 Reported Lithobid Ext Rel ([place] Carbonate) 450 Mg Tab 450 Mg PO QAM 12/08/16 Reported Indomethacin 25 Mg Cap 25 Mg PO 2XWK PRN 12/08/16 Reported TAKE THIS MEDICATION WITH FOOD Risperidone 1 Mg Tab 1 Mg PO BID 12/08/16 Reported Montelukast Sodium (Montelukast Sod) 10 Mg Tab 10 Mg PO HS 12/08/16 Reported Tessalon Perles (Benzonatate) 100 Mg Cap 100 Mg PO TID PRN 12/08/16 Reported Proair Respiclick (Albuterol Sulfate) 108 Mcg/Act Aer 2 Puffs INH Q4-6HRS PRN 11/13/16 Reported [place] Carbonate 600 Mg Cap 600 Mg PO QPM 11/13/16 Reported TAKE THIS MEDICATION WITH EVENING MEAL Benztropine Mesylate 1 Mg Tab 1 Mg PO BID 11/13/16 Reported Meclizine Hcl 25 Mg Tab 25 Mg PO TID PRN 10/08/16 Reported Migranal (Dihydroergotamine Mesylate) 4 Mg/Ml Rogers 1 [place] EDIE UD PRN 10/08/16 Reported ONE SPRAY IN EACH NOSTRIL, REPEAT DOSE AFTER 15 MINUTES IF NEEDED. MAXIMUM 2 DOSES IN 24 HOURS AND 4 DOSES PER 7 DAYS. Pamelor (Nortriptyline Hcl) 25 Mg Cap 25 Mg PO HS 08/27/16 Reported TAKE ONE 25 MG CAPSULE ALONG WITH ONE 75 MG CAPSULE TO EQUAL BEDTIME DOSE OF 100 MG Levothyroxine Sodium 25 Mcg Tab 25 Mcg PO DAILY 08/27/16 Reported Vitamin B-12 (Cyanocobalamin) 500 Mcg Tab 500 Mcg PO DAILY 07/15/16 Reported Pamelor (Nortriptyline Hcl) 75 Mg Cap 75 Mg PO HS 03/25/16 Reported TAKE ONE 75 MG CAPSULE ALONG WITH ONE 25 MG CAPSULE TO EQUAL BEDTIME DOSE OF 100 MG Atarax (Hydroxyzine Hcl) 25 Mg Tab 50 Mg PO HS 03/25/16 Reported Multivitamin (Multiple Vitamin) 1 Tab Tab 1 Tab PO DAILY 03/25/16 Reported Levsin (Hyoscyamine Sulfate) 0.125 Mg Tab 0.125 Mg PO TID 02/09/16 Reported Pantoprazole Sodium (Pantoprazole) 40 Mg Tab 40 Mg PO QAM 02/09/16 Reported TAKE THIS MEDICATION ONCE DAILY 30 MINUTES BEFORE BREAKFAST Linzess (Linaclotide) 290 Mcg Cap 290 Mcg PO QAM 02/09/16 Reported Gabapentin 300 Mg Cap 300 Mg PO TID 02/09/16 Reported Klonopin (Clonazepam) 0.5 Mg Tab 0.5 Mg PO BID 11/08/15 Reported Hydrofera Blue Foam Dress (Wound Dressings) 1 Pad Pad 1 Ea EXT UD 05/10/15 Reported 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 Advair Diskus 500/50 60 Dose (Fluticasone Prop/Salmeterol) 1 Ea Aerp 1 Puff INH BID 11/19/14 Reported Vitamin D (Cholecalciferol) 2,000 Unit Cap 2,000 Inter.unit PO DAILY 11/19/14 Reported Current Inpatient Medications As noted in medical record. Review of Systems See HPI for pertinent positives & negatives. A total of 10 systems reviewed and were otherwise negative. Physical Exam Date Time Temp Pulse Resp B/P (MAP) Pulse Ox O2 Delivery O2 Flow Rate FiO2 01/12/17 01:10 36.4 74 20 126/78 99 01/12/17 00:46 74 01/12/17 00:18 75 20 126/78 99 Room Air 01/11/17 21:33 92 01/11/17 21:06 91 20 113/60 97 Room Air 01/11/17 18:56 36.4 97 20 119/80 98 Room Air General Appearance: WD/WN, no apparent distress (Was using her phone w/out difficulty) Head: normocephalic, atraumatic Eyes: normal inspection ENT: normal ENT inspection, hearing grossly normal Neck: supple, no JVD Respiratory/Chest: lungs clear, normal breath sounds, no respiratory distress Cardiovascular: regular rate, rhythm, no murmur, normal peripheral pulses Abdomen/GI: non tender, soft, + pertinent finding (no suprapubic tenderness, indwelling catheter present) Back: normal inspection, no muscle spasm Extremities/Musculoskelatal: + pertinent finding (bilateral BKA) Neurologic/Psych: alert, normal mood/affect, oriented x 3 Skin: no rash Laboratory Results Last 24 Hours Test 01/11/17 20:08 01/11/17 21:41 Urine Color YELLOW Urine Appearance CLOUDY Urine pH 6.0 Urine Specific [place] 1.013 Urine Protein TRACE Urine Glucose (UA) NEG Urine Ketones NEG Urine Occult Blood 2+ Urine Nitrite POS Urine Bilirubin NEG Urine Urobilinogen NEG Urine Leukocyte Esterase LARGE Urine WBC (Auto) >30 /hpf Urine RBC (Auto) 10-30 /hpf Urine Hyaline Casts (Auto) 1-5 /lpf Urine Epithelial Cells (Auto) >30 /lpf Urine Bacteria (Auto) 4+ Urine Test NEG White Blood Count 9.91 K/uL Red Blood Count 4.03 M/uL Hemoglobin 12.1 g/dL Hematocrit 38.7 % Mean Corpuscular Volume 96.0 fL Mean Corpuscular Hemoglobin 30.0 pg Mean Corpuscular Hemoglobin Concent 31.3 g/dl Platelet Count 302 K/uL Mean Platelet Volume 9.7 fL Neutrophils (%) (Auto) 67.1 % Lymphocytes (%) (Auto) 21.2 % Monocytes (%) (Auto) 6.7 % Eosinophils (%) (Auto) 4.2 % Basophils (%) (Auto) 0.5 % Neutrophils # (Auto) 6.65 K/uL Lymphocytes # (Auto) 2.10 K/uL Monocytes # (Auto) 0.66 K/uL Eosinophils # (Auto) 0.42 K/uL Basophils # (Auto) 0.05 K/uL RDW Standard Deviation 53.8 fL RDW Coefficient of Variation 15.3 % Immature Granulocyte % (Auto) 0.3 % Immature Granulocyte # (Auto) 0.03 K/uL Red Blood Cell Morphology Unremarkable Sodium Level 141 mmol/L Potassium Level 3.1 mmol/L Chloride Level 109 mmol/L Carbon Dioxide Level 25 mmol/L Anion Gap 7.0 mmol/L Blood Urea Nitrogen 7 mg/dl Creatinine 0.62 mg/dl Estimated GFR () 141.2 Estimated GFR (Non- 121.9 BUN/Creatinine Ratio 11.9 Random Glucose 110 mg/dl Calcium Level 8.8 mg/dl Magnesium Level 2.2 mg/dl Total Bilirubin 0.3 mg/dl Aspartate Amino Transf (AST/SGOT) 12 U/L Alanine Aminotransferase (ALT/SGPT) 24 U/L Alkaline Phosphatase 108 U/L Ammonia 12.0 umol/L Total Protein 6.9 gm/dl Albumin 2.8 gm/dl Globulin 4.1 gm/dl Albumin/Globulin Ratio 0.7 Assessment & Plan 31 yo F with multiple co-morbidities and drug resistant UTIs, who initially presented with a headache. Her urinalysis had greater than 30 epithelial cells , so I do not believe it is a clean catheter specimen. She is also afebrile, and does not have a elevated white count, or suprapubic tenderness. She does not demonstrate any signs of pyelonephritis. I do not believe she meets criteria for inpatient admission. Our recommendation is that the patient be discharged home with close outpatient follow-up. If her culture does grow out an organism, she can be treated for that at that time. Management of her headache as per the ED team, who was reassured that her she neurosurgery that she could be followed up as an outpatient. Thank you for this consultation. Attending Addendum: I have physically seen and examined this patient, have supervised the medical residents activities, and agree with the H&P as noted above with the following exceptions: NONE The patient is awake, alert and oriented 3, lying in bed and in no acute distress. HEENT--PERRL, EOMI, mucous membranes and oropharynx dry. Neck--supple, no JVD or bruits, thyroid normal, trachea midline, no adenopathy. Heart--normal S1 and S2, no extra beats, no murmurs, rubs or gallops. Lungs--clear bilaterally with good air movement, no respiratory distress, no accessory muscle use. Abdomen--normal bowel sounds and soft, nontender and nondistended, no hernias or masses, no organomegaly. Extremities--bilateral BKA Dermatologic--normal skin turgor, normal color, warm and dry, no abnormal lymph nodes, no rash. Neurologic--cranial nerves II through XII grossly intact, motor and sensory examination normal. Rheumatologic--normal range of motion, nontender, muscles and joints. Psychiatric--normal affect. Assessment and Plan: 1. The patient initially reported a headache, which she usually does when she presents emergency department. There was then a question regarding possible UTI based on the urinalysis that was contaminated. We have seen this patient several times before, and she appears better baseline. I would not treat a contaminated urine for concerns regarding potentiating resistance to a probable colonized specimen. Her neurosurgeon at [facility] was comfortable with a normal CT scan of the head in reference to her shunt properly functioning. Agree the patient should be discharged to home. Additional Copies To Laura Gonzalez P.A. Resident Tracking Resident Involvement: Resident Care Provided Care Provided: Adult [facility]
[2017-01-14] MEDS ORDERED: [UNRECOGNIZED DRUG - CODE] IART (10:53)
[2017-01-14] MEDS ORDERED: RIVA1.5T PO (12:41)
[2017-02-10] MEDS ORDERED: PRT/40 PO (16:40)
[2017-02-14] MEDS ORDERED: XRL20 PO (15:35)
[2017-02-14] MEDS ORDERED: MTRG45 TOP (15:35)
[2017-02-14] MEDS ORDERED: PRT/40 PO (15:35)
[2017-02-14] MEDS ORDERED: [UNRECOGNIZED DRUG - CODE] IV (15:35)
[2017-02-14] MEDS ORDERED: POTA10CA28 PO (16:29)
[2017-02-14] MEDS ORDERED: MGNO400 PO (16:29)
[2017-03-09] MEDS ORDERED: TOBRAMYCIN PO (12:59)
[2017-03-09] MEDS ORDERED: DOXYCYLINE PO (12:59)
[2017-03-15] MEDS ORDERED: ADVIN50/60 INH (13:04)
[2017-03-15] MEDS ORDERED: CHOL200010 PO (13:04)
[2017-03-15] MEDS ORDERED: NRT/25 PO (13:23)
[2017-03-15] MEDS ORDERED: MGRSP NAE (13:52)
[2017-03-15] MEDS ORDERED: WOUN1PAD EXT (13:52)
[2017-03-15] MEDS ORDERED: MECL1TAB42 PO (13:52)
[2017-03-15] MEDS ORDERED: VTMB12 PO (15:08)
[2017-03-15] MEDS ORDERED: LINA1CAP2 PO (16:40)
[2017-03-15] MEDS ORDERED: HYOS1TAB PO (16:40)
[2017-03-15] MEDS ORDERED: GABA1CAP4 PO (16:40)
== END 2017-01-12 01:10 | disposition home or self-care (01) ==
LOC: C.EDB 18:54 → C.EDC 01-12 01:10
DX: R51 Headache (principal); Q05.9 Spina bifida, unspecified; N39.0 Urinary tract infection, site not specified; E87.6 Hypokalemia; Z98.2 Presence of cerebrospinal fluid drainage device; N31.9 Neuromuscular dysfunction of bladder, unspecified; F31.9 Bipolar disorder, unspecified; Z89.512 Acquired absence of left leg below knee; Z89.511 Acquired absence of right leg below knee; Z79.899 Other long term (current) drug therapy; Z86.14 Personal history of Methicillin resistant Staphylococcus aureus infection; Z88.3 Allergy status to other anti-infective agents; L89.893 Pressure ulcer of other site, stage 3; S81.802A Unspecified open wound, left lower leg, initial encounter; X58.XXXA Exposure to other specified factors, initial encounter; J45.909 Unspecified asthma, uncomplicated; K31.84 Gastroparesis; K21.9 Gastro-esophageal reflux disease without esophagitis; Z90.49 Acquired absence of other specified parts of digestive tract; E03.9 Hypothyroidism, unspecified; F20.9 Schizophrenia, unspecified; Z91.5 Personal history of self-harm; Z83.6 Family history of other diseases of the respiratory system; Z83.3 Family history of diabetes mellitus

== ENCOUNTER 2017-01-13 16:38 | Observation (INO) | payer BC, OTHER ==
[~2017-01-13] VITALS: Ht 119.4 cm; Wt 110.0 kg
[~2017-01-13 16:38] MED LIST changes: -DFL100 PO; -MICO1POW8 TOP; +NITR-5 PO; -RISP1TAB68 PO; +RIVA1.5T PO; -TPM25 PO; -VST25HP PO; -XRL20 PO
[2017-01-13] MEDS ORDERED: SODIUM CHLORIDE 0.9% 500ML 500 ML IV STA (18:33)
[2017-01-13] MEDS ORDERED: PIPERACILLIN/TAZOBACTAM 4.5 GM/100ML D5W IV STA (18:33)
[2017-01-13] MEDS ORDERED: DiphenhydrAMINE HCL 50 MG/ML VIAL IV STA (18:33)
[2017-01-13] MEDS ORDERED: SODIUM CHLORIDE 0.9% 1000ML 1,000 ML IV STA (18:33)
--- NOTE | 2017-01-13 18:45 | EMERGENCY ROOM VISIT NOTE ---
History Report prepared by James: Dariana Albert Under the Supervision of: Dr. Devin Martinez M.D. First contact with patient: 18:30 Chief Complaint: URINARY SYMPTOMS Stated Complaint: UTI Nursing Triage Summary: Patient presents to triage via her own wheelchair. Mother states "We were here on Monday night and she was diagnosed with a UTI. She was put on Macrobid and sent home. Her urine cultures grew pseudamonas and we are back to see if we can somehow get home health set up for home IV antibiotics. She has an implanted port to the right chest wall." Patient was diagnosed with a PE in November and is on zarelto for the clot. Patient's mother reports that she is lethargic, sleeping all of the time, confused. History of Present Illness The patient is a 31 year old female who presents to the Emergency Room with complaints of persistent urinary symptoms that began 5 days ago. She currently rates her discomfort as an 8/10 in severity. The patient's mother reports that the patient was evaluated in the emergency department on Monday for a headache, pain in her bladder, loss of energy, and loss of appetite. She states that the patient had a workup done that revealed a urinary tract infection. The patient's mother states that the patient was placed on Macrobid and sent home. She states that the patient's urine cultures came back today and revealed pseudomonas. The patient's mother states that the patient was instructed today to come to the emergency department for IV antibiotics. She states that the patient has had a decrease in strength, and has been increasingly fatigued. The patient states that she has a suprapubic catheter. She states that she has been feeling dehydrated. The patient states that she has had a decrease in fluid intake and appetite. She denies any fever or vomiting. Source of History: patient, parent (mother) Onset: 5 days ago Position: other (global) Symptom Intensity: 8/10 Quality: other (urinary symptoms) Timing: other (persistent) Associated Symptoms: + headache, + fatigue Note: Associated Symptoms: pain in bladder, loss of energy, loss of appetite, dehydrated, decrease in fluid intake Review of Systems See HPI for pertinent positives & negatives. A total of 10 systems reviewed and were otherwise negative. Past Medical & Surgical Medical Problems: (1) Allergic reaction caused by a drug (2) Anxiety (3) Asthma exacerbation (4) Bipolar 1 disorder (5) Cellulitis (6) Depression (7) Gastroparesis (8) GERD (gastroesophageal reflux disease) (9) Hydrocephalus (10) Intractable headache (11) Migraines (12) MRSA (methicillin resistant Staphylococcus aureus) (13) Osteomyelitis (14) Pulmonary embolism (15) Shunt placement with revision x8 (16) Spina bifida (17) UTI (urinary tract infection) Surgical Problems: (1) S/P BKA (below knee amputation) bilateral Family History Cancer Diabetes mellitus Lung disease Social History Smoking Status: Never Smoker Alcohol Use: none Drug Use: none Marital Status: single Housing Status: lives with family Occupation Status: disabled Current/Historical Medications Scheduled Benztropine Mesylate (Benztropine Mesylate), 1 MG PO BID Cholecalciferol (Vitamin D), 2,000 INTER.UNIT PO DAILY Clonazepam (Klonopin), 0.5 MG PO BID Cyanocobalamin (Vitamin B-12), 500 MCG PO DAILY Ergotamine Tartrate (Ergomar), 2 MG PO UD Ferrous Sulfate (Ferrous Sulfate), 325 MG PO BID Fluticasone Prop/Salmeterol (Advair Diskus 500/50 60 Dose), 1 PUFF INH BID Gabapentin (Gabapentin), 300 MG PO TID Hydroxyzine Hcl (Atarax), 50 MG PO HS Hyoscyamine Sulfate (Levsin), 0.125 MG PO TID Levothyroxine Sodium (Levothyroxine Sodium), 25 MCG PO DAILY Linaclotide (Linzess), 290 MCG PO QAM [place] Carbonate ([place] Carbonate), 600 MG PO QPM [place] Carbonate Er (Lithobid Ext Rel), 450 MG PO QAM Montelukast Sod (Montelukast Sodium), 10 MG PO HS Multiple Vitamin (Multivitamin), 1 TAB PO DAILY Nitrofurantoin Monohyd Macrocr (Macrobid), 100 MG PO BID Nortriptyline Hcl (Pamelor), 75 MG PO HS Nortriptyline Hcl (Pamelor), 25 MG PO HS Nystatin (Topical) (Nystop), 1 APPLN TOP PRN Pantoprazole (Pantoprazole Sodium), 40 MG PO QAM Probiotic Product (Probiotic), 1 CAP PO DAILY Ranitidine Hcl (Zantac), 150 MG PO HS Risperidone (Risperidone), 1 MG PO BID Rivaroxaban (Xarelto), 15 MG PO BID Sennosides (Senna Lax), 8.6 MG PO DAILY Topiramate (Trokendi Xr), 100 MG PO BID Wound Dressings (Hydrofera Blue Foam Dress), 1 EA EXT UD Scheduled PRN Albuterol Sulfate (Proair Respiclick), 2 PUFFS INH Q4-6HRS PRN for SOB/Wheezing Benzonatate ([place] Perles), 100 MG PO TID PRN for Cough Dihydroergotamine Mesylate (Migranal), 1 SPRAY EDIE UD PRN for Migraine Docusate Sodium (Dulcolax Stool Softener), 100 MG PO BID PRN for Constipation Indomethacin (Indomethacin), 25 MG PO 2XWK PRN for Headache Levalbuterol (Levalbuterol HCl), 3 ML NEB Q6-8HRS PRN for Shortness of Breath Meclizine Hcl (Meclizine Hcl), 25 MG PO TID PRN for Dizziness or Vertigo Ondasetron Odt (Zofran Odt), 4 MG SL Q8 PRN for Nausea Tramadol HCl (Tramadol HCl), 50 MG PO Q4 PRN for Pain Allergies Coded Allergies: Adhesives (Verified Allergy, Intermediate, TAPE- HIVES, 01/13/17) Ceftriaxone (Verified Allergy, Intermediate, rash, 01/13/17) Chlorhexidine (Verified Allergy, Intermediate, RASH, 01/13/17) Ciprofloxacin (Verified Allergy, Intermediate, hives, 01/13/17) Latex (Verified Allergy, Intermediate, hives, 01/13/17) Levofloxacin (Verified Allergy, Intermediate, rash, 01/13/17) Linezolid (Verified Allergy, Intermediate, rash, 01/13/17) Piperacillin (Verified Allergy, Intermediate, SEVERE RASH, HIVES, 01/13/17) Tazobactam (Verified Allergy, Intermediate, SEVERE RASH, HIVES, 01/13/17) Vancomycin (Verified Allergy, Intermediate, rash, 01/13/17) Tobramycin (Verified Allergy, Mild, MILD RASH ON ARM, RED FACE, 01/13/17) IMPROVED AFTER BENADRYL, TAKING REST OF DOSE Amikacin (Verified Allergy, Unknown, PER DR ROBINS,RXN WAS TO ZOSYN NOT AMKrash;hives, 01/13/17) Sulfamethoxazole w/Trimethoprim (Verified Allergy, Unknown, Hives, 01/13/17 ) Can be pretreated with 10mg Zytrec 45 min prior to admin Physical Exam Vital Signs Date Time Temp Pulse Resp B/P (MAP) Pulse Ox O2 Delivery O2 Flow Rate FiO2 01/13/17 18:32 91 19 137/93 99 Room Air 01/13/17 16:51 36.4 95 20 118/82 96 Room Air Physical Exam GENERAL: Patient is in no acute distress. HEENT: No acute trauma, normocephalic atraumatic, mucous membranes dry, no nasal congestion, no scleral icterus. NECK: No stridor, no adenopathy, no meningismus, trachea is midline. LUNGS: Clear to auscultation bilaterally, no wheeze, no rhonchi, breath sounds equal. HEART: Without murmurs gallops or rubs, regular rate and rhythm. ABDOMEN: Soft, nontender, bowel sounds positive, no hernias, no peritonitis. EXTREMITIES: Distal leg amputations bilaterally, no signs of cellulitis, no significant edema. NEUROLOGIC: Speech slur noted which is baseline. Oriented x 3, no acute motor or sensory deficits, no focal weakness. SKIN: No rash, no jaundice, no diaphoresis. Medical Decision & Procedures Laboratory Results Laboratory results reviewed by me. Medications Administered Medications (Trade) Dose Ordered Sig/Brenna Route Start Time Stop Time Status Last Admin Dose Admin Sodium Chloride 500 ml @ 999 mls/hr Q31M STAT IV 01/13/17 18:33 01/13/17 19:03 DC 01/13/17 20:05 999 MLS/HR Sodium Chloride 1,000 ml @ 125 mls/hr Q8H STAT IV 01/13/17 18:33 01/13/17 21:52 DC 01/13/17 20:05 125 MLS/HR ED Course 1830: The patient was evaluated in room A10. A complete history and physical exam was performed. 1832: Ordered Zosyn IV 4.5 gm IV, Sodium Chloride 1000 ml @ 125 mls/hr IV, Sodium Chloride 500 ml @ 999 mls/hr IV, Benadryl Inj 25 mg IV. 1920: I discussed the patients case with Dr. Gan, [facility] Resident. He is going to evaluate the patient for further treatment. 1928: I reevaluated the patient and she is resting comfortably. I discussed the exam findings with her and her mother and I discussed the treatment plan. They verbalized complete understanding and agreement. The patient is going to be evaluated for further treatment. Medical Decision The patient is a 31 year old female who presents to the ED with complaints of urinary symptoms. Differential diagnoses considered include failed outpatient treatment, sepsis, bacteremia, dehydration, electrolyte imbalance, UTI, renal failure. There is no leukocytosis or concerning anemia. Renal panel testing shows the potassium to be slightly low, no kidney failure. No hepatitis. Lactic acid level is not elevated making severe sepsis less likely. Blood cultures are pending. Urine culture from a few days ago shows pseudomonas which is resistant except to IV medications. Amikacin, Tobramycin and Zosyn were the only meds that showed sensitivity. The patient received IV saline, I had ordered for IV Benadryl with IV Zosyn- despite her allergy, she has done well with Zosyn in the past when Benadryl was used as a premedication. The patient though never received the Zosyn as the on- call hospitalist decided to use a different antibiotic. I talked to the patient and case management. I talked to the patient's mother. Hospitalization is required for IV antibiotic therapy. Consults Time Called: 1914 Consulting Physician: [facility] Valerio Returned Call: 1920 I discussed the patients case with Dr. Gan, [facility] Resident. He is going to evaluate the patient for further treatment. Impression Primary Impression: Failure of outpatient treatment Additional Impressions: Dehydration UTI (urinary tract infection) Scribe Attestation The scribe's documentation has been prepared under my direction and personally reviewed by me in its entirety. I confirm that the note above accurately reflects all work, treatment, procedures, and medical decision making performed by me. Departure Information Dispostion Being Evaluated By Hospitalist Referrals Laura Gonzalez P.A. (PCP) Problem Qualifiers
--- NOTE | 2017-01-13 19:34 | History and Physical ---
History & Physical Date & Time of Service: Jan 13, 2017 at 19:30 Chief Complaint: UTI Primary Care Physician: Laura Gonzalez P.A. History of Present Illness Source: patient, parent This is a 31 year old female with a complex medical history. She complains of severe pain and headaches. She complains of pain in the lower abdomen. She has a sensation of urgency, despite having a suprapubic catheter. Urine has been more cloudy and has had a foul smell. She denies any flank pain. She has had a poor appetite. She is nauseous but is not vomiting. She denies fevers but has had chills and nightsweats. She denies any chest pain, shortness of breath. She has asthma but is not wheezing at this time. She seen in the ED 2 days ago for malaise and headache. A CT at that time was negative. She did have urine culture done and pending results, she was started on Macrobid. Today, cultures were positive for Pseudomonas with resistance or oral agents so she was informed to come to the ED for IV antibiotics. Connie does have a patient port which she can use for vascular access. She is noted to have multiple allergies. Mother notes she has been tested and does have a penicillin allergy that can apparently be averted with Pre- treatment with Benadryl. Past Medical/Surgical History Medical Problems: History of DVT PE, on Xarelto (1) Anxiety Status: Chronic (2) Bipolar 1 disorder / Schizoaffective Disorder Status: Chronic (3) Depression Status: Chronic (4) Gastroparesis Status: Chronic (5) GERD (gastroesophageal reflux disease) Status: Chronic (6) Hydrocephalus Status: Chronic (7) MRSA (methicillin resistant Staphylococcus aureus) Status: Resolved (8) Osteomyelitis Status: Resolved (9) Spina bifida Permanent Comment: Status: Chronic Family History Cancer Diabetes mellitus Lung disease Social History Smoking Status: Never Smoker Smokeless Tobacco Use: No Alcohol Use: none Drug Use: none Marital Status: single Housing status: lives with family Occupational Status: disabled Immunizations History of Influenza Vaccine: Unknown History of Tetanus Vaccine?: Unknown History of Pneumococcal: Unknown History of Hepatitis B Vaccine: Unknown 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 Type of MDRO: MRSA Allergies Coded Allergies: Adhesives (Verified Allergy, Intermediate, TAPE- HIVES, 01/13/17) Ceftriaxone (Verified Allergy, Intermediate, rash, 01/13/17) Chlorhexidine (Verified Allergy, Intermediate, RASH, 01/13/17) Ciprofloxacin (Verified Allergy, Intermediate, hives, 01/13/17) Latex (Verified Allergy, Intermediate, hives, 01/13/17) Levofloxacin (Verified Allergy, Intermediate, rash, 01/13/17) Linezolid (Verified Allergy, Intermediate, rash, 01/13/17) Piperacillin (Verified Allergy, Intermediate, SEVERE RASH, HIVES, 01/13/17) Tazobactam (Verified Allergy, Intermediate, SEVERE RASH, HIVES, 01/13/17) Vancomycin (Verified Allergy, Intermediate, rash, 01/13/17) Tobramycin (Verified Allergy, Mild, MILD RASH ON ARM, RED FACE, 01/13/17) IMPROVED AFTER BENADRYL, TAKING REST OF DOSE Amikacin (Verified Allergy, Unknown, PER DR ROBINS,RXN WAS TO ZOSYN NOT AMKrash;hives, 01/13/17) Sulfamethoxazole w/Trimethoprim (Verified Allergy, Unknown, Hives, 01/13/17 ) Can be pretreated with 10mg Zytrec 45 min prior to admin Home Medications Scheduled Benztropine Mesylate (Benztropine Mesylate), 1 MG PO BID Cholecalciferol (Vitamin D), 2,000 INTER.UNIT PO DAILY Clonazepam (Klonopin), 0.5 MG PO BID Cyanocobalamin (Vitamin B-12), 500 MCG PO DAILY Ergotamine Tartrate (Ergomar), 2 MG PO UD Ferrous Sulfate (Ferrous Sulfate), 325 MG PO BID Fluticasone Prop/Salmeterol (Advair Diskus 500/50 60 Dose), 1 PUFF INH BID Gabapentin (Gabapentin), 300 MG PO TID Hydroxyzine Hcl (Atarax), 50 MG PO HS Hyoscyamine Sulfate (Levsin), 0.125 MG PO TID Levothyroxine Sodium (Levothyroxine Sodium), 25 MCG PO DAILY Linaclotide (Linzess), 290 MCG PO QAM [place] Carbonate ([place] Carbonate), 600 MG PO QPM [place] Carbonate Er (Lithobid Ext Rel), 450 MG PO QAM Montelukast Sod (Montelukast Sodium), 10 MG PO HS Multiple Vitamin (Multivitamin), 1 TAB PO DAILY Nitrofurantoin Monohyd Macrocr (Macrobid), 100 MG PO BID Nortriptyline Hcl (Pamelor), 75 MG PO HS Nortriptyline Hcl (Pamelor), 25 MG PO HS Nystatin (Topical) (Nystop), 1 APPLN TOP PRN Pantoprazole (Pantoprazole Sodium), 40 MG PO QAM Probiotic Product (Probiotic), 1 CAP PO DAILY Ranitidine Hcl (Zantac), 150 MG PO HS Risperidone (Risperidone), 1 MG PO BID Rivaroxaban (Xarelto), 15 MG PO BID Sennosides (Senna Lax), 8.6 MG PO DAILY Topiramate (Trokendi Xr), 100 MG PO BID Wound Dressings (Hydrofera Blue Foam Dress), 1 EA EXT UD Scheduled PRN Albuterol Sulfate (Proair Respiclick), 2 PUFFS INH Q4-6HRS PRN for SOB/Wheezing Benzonatate (Tessalon Perles), 100 MG PO TID PRN for Cough Dihydroergotamine Mesylate (Migranal), 1 SPRAY EDIE UD PRN for Migraine Docusate Sodium (Dulcolax Stool Softener), 100 MG PO BID PRN for Constipation Indomethacin (Indomethacin), 25 MG PO 2XWK PRN for Headache Levalbuterol (Levalbuterol HCl), 3 ML NEB Q6-8HRS PRN for Shortness of Breath Meclizine Hcl (Meclizine Hcl), 25 MG PO TID PRN for Dizziness or Vertigo Ondasetron Odt (Zofran Odt), 4 MG SL Q8 PRN for Nausea Tramadol HCl (Tramadol HCl), 50 MG PO Q4 PRN for Pain Review of Systems A 10 point review of systems was negative unless stated above. Physical Exam Vital Signs Date Time Temp Pulse Resp B/P (MAP) Pulse Ox O2 Delivery O2 Flow Rate FiO2 01/13/17 18:32 91 19 137/93 99 Room Air 01/13/17 16:51 36.4 95 20 118/82 96 Room Air General Appearance: WD/WN, + mild distress, + obese, + pertinent finding ( mildly diaphorectic) Head: normocephalic, atraumatic Eyes: normal inspection, EOMI ENT: hearing grossly normal, pharynx normal Neck: supple, no adenopathy, no JVD Respiratory/Chest: lungs clear, no respiratory distress, + pertinent finding ( right sided port under skin; overlying skin dry and intact) Cardiovascular: regular rate, rhythm, no gallop, no murmur Abdomen/GI: normal bowel sounds, non tender, soft Genitourinary - Female: + pertinent finding (suprapubic catheter draining clear yellow urine) Back: no CVA tenderness, no muscle spasm Extremities/Musculoskelatal: + pertinent finding (lower extremity AKA bilaterally) Neurologic/Psych: alert, normal mood/affect, oriented x 3 Skin: normal color, warm/dry, no rash Lymphatic: no adenopathy Diagnostics Laboratory Results Last 24 Hours Test 01/13/17 20:01 White Blood Count 9.05 K/uL Red Blood Count 3.96 M/uL Hemoglobin 11.8 g/dL Hematocrit 38.1 % Mean Corpuscular Volume 96.2 fL Mean Corpuscular Hemoglobin 29.8 pg Mean Corpuscular Hemoglobin Concent 31.0 g/dl Platelet Count 319 K/uL Mean Platelet Volume 9.7 fL RDW Standard Deviation 54.1 fL RDW Coefficient of Variation 15.4 % Results Past 24 Hours Test 01/13/17 18:33 Range/Units Microbiology Results 01/13/17 Blood Culture, Ordered Pending 01/13/17 Blood Culture, Ordered Pending Impression Assessment and Plan 31 year old female with complex medical history who presents with Pseudomonas on urine culture. She is in and out of hospital and medical facilities so it is unclear as to whether this Pseudomonas is colonization vs. active infection but given symptoms we will treat as such. She is noted to have multiple allergies to PO and IV antibiotics. She has been treated previous with Zerbaxa. Our plan for her is as follows: Presumed Pseudomonas UTI - Zerbaxa 1.5 g q8 hours for 7 days ID consulted as this medication is not for routine use - The patient has right-sided port which can be accessed so 7 day course can be done as outpatient if needed - Will hydrate gently overnight with NSS + 20KCl at 100 ml/hr and encourage PO hydration - Monitor clinically for response. History of PE/DVT - Continue Xarelto - SCD to Thigh Schzoaffective Disorder - Continue [place] - Continue Risperidone Anxiety - Continue Clonazepam Asthma - Continue Xopenex PRN - Continue Advair Hypothyroid - Continue Levothyroxine Chronic Neuropathic Pain, otherwise unspecified - Continue Nortriptyline - Continue Gabapentin GERD - Continue Protonix - Continue Ranitidine DVT Prophylaxis - Xarelto - SCD Code Status - Level I Disposition - Med/Surg - PT evaluation while in patient per mother's request - Anticipate arrangements for home IV antibiotics Attending Addendum: I have physically seen and examined this patient, have supervised the medical residents activities, and agree with the H&P as noted above with the following exceptions as noted. The patient denies chest pain, palpitations, shortness of breath, cough, vision change, hearing change, sore throat, fevers, chills, sweats, fatigue, nausea, vomiting, abdominal pain, blood in urine or stool, dysuria, urinary frequency or urgency, lightheadedness, dizziness, headache, memory loss, rash, abnormal bruising or bleeding, focal or generalized weakness, numbness or tingling in arms, generalized arthralgias or myalgias, back or neck pain, or allergy symptoms. The review of systems is otherwise negative other than for that already noted above, and at least 10 systems have been reviewed. The patient is awake, well-developed and adequately nourished, alert and oriented 3, normocephalic and atraumatic, looks mildly diaphoretic, lying in bed and in no acute distress. HEENT--PERRL, EOMI, mucous membranes and oropharynx dry. Neck--supple, no JVD or bruits, thyroid normal, trachea midline, no adenopathy. Heart--normal S1 and S2, no extra beats, no murmurs, rubs or gallops. Lungs--clear bilaterally with decreased breath sounds throughout, no respiratory distress, no accessory muscle use. Abdomen--normal bowel sounds and soft, generalized mild tenderness. Nondistended. Suprapubic catheter in place. No organomegaly, and obese. Extremities--no cyanosis or clubbing. Status post bilateral AKA Dermatologic--skin mildly clammy and diaphoretic, no rash. Neurologic--cranial nerves II through XII grossly intact. Rheumatologic--limited exam. Psychiatric--normal affect. Assessment and Plan: 1. Pseudomonas urine culture--the patient had had urine culture performed when she was at the ED tonight's ago, which today returned positive. Patient has multiple allergies and sensitivities antibiotics. She had Pseudomonas UTI in October, and was treated in the hospital at that time including with Dr. Sauceda from infectious disease. She was Zerbaxa. She'll be placed on Zerbaxa 1.5 g IV every 8 hours for 7 days. Gently hydrate with IV fluids. Follow serial CBC with differential, chemistry profile and magnesium level. Consult infectious disease Dr. Sauceda. We'll consult manager social work. 2. PE/DVT--continue Xarelto. 3. Schizoaffective disorder/anxiety--continue lithium, risperidone and clonazepam. 4. GERD--continue Protonix and ranitidine. 5. Chronic Neuropathy Pain--continue gabapentin and nortriptyline. Level of Care Med/Surg Advanced Directives Existing Advance Directive: No Existing Living Will: No Existing Power of Botany Teacher: No Resuscitation Status FULL RESUSCITATION VTE Prophylaxis Risk Level: Moderate Given or contraindicated: Other Anticoagulation (Xarelto)
[2017-01-13] MEDS ORDERED: DOCUSATE SODIUM 100 MG CAP PO PRN (19:45)
[2017-01-13] MEDS ORDERED: TRAMADOL HCL 50 MG TAB PO PRN (19:45)
[2017-01-13] MEDS ORDERED: DIHYDROERGOTAMINE MESYLATE NAE PRN (19:45)
[2017-01-13] MEDS ORDERED: NYSTATIN POWDER 15GM BTL EXT PRN (19:45)
[2017-01-13] MEDS ORDERED: ALUMINUM/MAGNESIUM/SIMETH (MAALOX MAX) 30 ML UDC PO PRN (19:45)
[2017-01-13] MEDS ORDERED: ACETAMINOPHEN 325 MG TAB PO PRN (19:45)
[2017-01-13] MEDS ORDERED: BENZONATATE 100MG CAP PO PRN (19:45)
[2017-01-13] MEDS ORDERED: LEVALBUTEROL 0.63MG/3 ML NEB INH PRN (19:45)
[2017-01-13] MEDS ORDERED: ONDANSETRON INJ 2 MG/ML 2 ML VIAL IV PRN (19:45)
[2017-01-13] MEDS ORDERED: POLYETHYLENE (MIRALAX) 17 GM PACK PO PRN (19:45)
[2017-01-13] MEDS ORDERED: ALBUTEROL HFA 8 GM INHALER INH PRN (19:45)
[2017-01-13] MEDS ORDERED: WOUND DRESSINGS EXT SCH (19:45)
[2017-01-13] MEDS ORDERED: MAGNESIUM HYDROXIDE SUSP 30 ML UDC PO PRN (19:45)
[2017-01-13] MEDS ORDERED: MECLIZINE HCL 25 MG TAB PO PRN (19:45)
[2017-01-13] MEDS ORDERED: ONDANSETRON 4MG OD TAB SL PRN (19:45)
[2017-01-13] MEDS ORDERED: IV FLUIDS COMPLETED PRN ×2 (20:00→20:45)
[2017-01-13 20:24] LABS: HEMATOCRIT 38.1 % (37-47); MEAN CELL VOLUME 96.2 fL (80-100); MEAN CORPUSCULAR HEMOGLOBIN 29.8 pg (25-34); MEAN PLATELET VOLUME 9.7 fL (7.4-10.4); PLATELET COUNT 319 K/uL (130-400); RED BLOOD COUNT 3.96 M/uL (4.2-5.4); WHITE BLOOD COUNT 9.05 K/uL (4.8-10.8)
[2017-01-13] MEDS ORDERED: TAZOBACTAM IV ONE (20:30)
[2017-01-13] MEDS ORDERED: [UNRECOGNIZED DRUG - OTHER] PRN (20:30)
[2017-01-13] MEDS ORDERED: CEFTOLOZANE IV ONE (20:30)
[2017-01-13] MEDS ORDERED: DEXTROSE 5% IV ONE (20:30)
[2017-01-13 20:41] LABS: BUN/CREATININE RATIO 7.8 (10-20); CALCIUM 8.4 mg/dl (8.5-10.1); CREATININE 0.61 mg/dl (0.60-1.20); POTASSIUM 2.9 mmol/L (3.5-5.1)
[2017-01-13 20:44] LABS: ALB/GLOB RATIO 0.7 (0.9-2)
[2017-01-13 20:51] LABS: BASO % 0.4 %; BASO ABS # 0.04 K/uL (0-0.2); COMPLETE YES; EOS % 3.5 %; IG% 0.3 %; LYMPH ABS # 2.26 K/uL (1.2-3.4); MONO % 9.2 %; NEUT % 61.6 %
[2017-01-13] MEDS ORDERED: RANITIDINE HCL 150 MG TAB PO SCH (21:00)
[2017-01-13] MEDS ORDERED: hydrOXYzine HCL 25 MG TAB PO SCH (21:00)
[2017-01-13] MEDS ORDERED: NORTRIPTYLINE HCL 25 MG CAP PO SCH ×2 (21:00)
[2017-01-13] MEDS ORDERED: MONTELUKAST SOD 10 MG TAB PO SCH (21:00)
[2017-01-13] MEDS ORDERED: NON-FORMULARY MEDICATION (Lithium Carbonate 600 MG) PO SCH (21:00)
[2017-01-13 22:05] VITALS: BP 125/79; PULSE 90; TEMP 36.4; Ht 119.4 cm; Wt 110.0 kg
[2017-01-13] MEDS: NSS + 20MEQ KCL 1000ML 1,000 ML IV SCH (22:27)
[2017-01-13] MEDS: CLONAZEPAM 0.5 MG TAB PO SCH (22:39)
[2017-01-13] MEDS: FLUTICASONE/SALMETEROL (ADVAIR) 500/50 INH 14 PUFF INH SCH (22:40)
[2017-01-13] MEDS: RISPERIDONE 1 MG TAB PO SCH (22:41)
[2017-01-13] MEDS: FERROUS SULFATE 325 MG TAB PO SCH (22:41)
[2017-01-13] MEDS: HYOSCYAMINE SULFATE 0.125 MG SL TAB PO SCH (22:42)
[2017-01-13] MEDS: BENZTROPINE MESYLATE 1 MG TAB PO SCH (22:43)
[2017-01-13] MEDS: RIVAROXABAN TAB 15 MG TAB PO SCH (22:44)
[2017-01-13] MEDS: GABAPENTIN 300 MG CAP PO SCH (22:45)
[2017-01-13 23:53] VITALS: BP 126/74; PULSE 90; TEMP 36.9; O2SAT 97
[2017-01-14] MEDS: DEXTROSE 5% IV SCH ×2 (04:09→11:32)
[2017-01-14] MEDS: TAZOBACTAM IV SCH ×2 (04:09→11:32)
[2017-01-14] MEDS: CEFTOLOZANE IV SCH ×2 (04:09→11:32)
[2017-01-14] MEDS: NSS + 20MEQ KCL 1000ML 1,000 ML IV SCH (06:11)
[2017-01-14] MEDS ORDERED: LEVOTHYROXINE 25 MCG TAB PO SCH (06:30)
[2017-01-14] MEDS: LINZESS~ORDER AWAITING ACTION SCH ×2 (06:58)
[2017-01-14 07:28] VITALS: BP 110/73; PULSE 86; TEMP 36.8; O2SAT 95
[2017-01-14 08:00] VITALS: O2SAT 95
[2017-01-14] MEDS ORDERED: LACTOBACILLUS ACIDOPHILUS (FLORANEX) TAB PO SCH (08:00)
[2017-01-14] MEDS ORDERED: LITHIUM CARBONATE 450 MG TABCR PO SCH (08:00)
[2017-01-14] MEDS ORDERED: MULTIVITAMIN TAB PO SCH (08:00)
[2017-01-14] MEDS ORDERED: CYANOCOBALAMIN 500 MCG TAB (VIT B-12) PO SCH (08:00)
[2017-01-14] MEDS ORDERED: PANTOprazole SOD 40 MG TAB PO SCH (08:00)
[2017-01-14] MEDS ORDERED: SENNA 8.6 MG TAB PO SCH (08:00)
[2017-01-14] MEDS ORDERED: CHOLECALCIFEROL 1000 INTER.UNIT TAB PO SCH (08:00)
[2017-01-14] MEDS: CLONAZEPAM 0.5 MG TAB PO SCH (08:55)
[2017-01-14] MEDS: FLUTICASONE/SALMETEROL (ADVAIR) 500/50 INH 14 PUFF INH SCH (08:55)
[2017-01-14] MEDS: GABAPENTIN 300 MG CAP PO SCH ×2 (08:56→13:07)
[2017-01-14] MEDS: FERROUS SULFATE 325 MG TAB PO SCH (08:56)
[2017-01-14] MEDS: RIVAROXABAN TAB 15 MG TAB PO SCH (08:56)
[2017-01-14] MEDS: RISPERIDONE 1 MG TAB PO SCH (08:57)
[2017-01-14] MEDS: HYOSCYAMINE SULFATE 0.125 MG SL TAB PO SCH ×2 (08:57→13:07)
[2017-01-14] MEDS: BENZTROPINE MESYLATE 1 MG TAB PO SCH (08:57)
[2017-01-14 08:58] LABS: BASO % 0.3 %; BASO ABS # 0.02 K/uL (0-0.2); COMPLETE YES; EOS % 4.6 %; HEMATOCRIT 36.1 % (37-47); IG% 0.3 %; LYMPH % 24.3 %; LYMPH ABS # 1.69 K/uL (1.2-3.4); MEAN CELL VOLUME 96.8 fL (80-100); MEAN PLATELET VOLUME 9.6 fL (7.4-10.4); MONO % 7.9 %; NEUT % 62.6 %; PLATELET COUNT 281 K/uL (130-400); RED BLOOD COUNT 3.73 M/uL (4.2-5.4); WHITE BLOOD COUNT 6.96 K/uL (4.8-10.8)
[2017-01-14 09:22] LABS: BUN/CREATININE RATIO 7.7 (10-20); CALCIUM 8.4 mg/dl (8.5-10.1); CREATININE 0.56 mg/dl (0.60-1.20); POTASSIUM 3.3 mmol/L (3.5-5.1)
[2017-01-14 10:37] VITALS: BP 110/73; PULSE 86; TEMP 36.8; O2SAT 95
[2017-01-14] MEDS ORDERED: [UNRECOGNIZED DRUG - CODE] IART ×2 (10:53)
--- NOTE | 2017-01-14 10:55 | Discharge Instructions ---
Discharge Instructions Date of Service Jan 14, 2017. Admission Reason for Admission: UTI Discharge Discharge Diagnosis / Problem: Complicated UTI Discharge Goals Goal(s): Decrease discomfort, Increase independence, Improve disease control Activity Recommendations Activity Limitations: resume your previous activity . Instructions / Follow-Up Instructions / Follow-Up You are admitted to the hospital because of UT. Urine culture showed bacteria in your urine (pseudomanias). You are been treated with IV antibiotics for the UTI. Blood culture didn't grow any organism to date You have to take the antibiotics for total 7 days. Please follow up with your primary doctor in 1-2 weeks. Current Hospital Diet Patient's current hospital diet: Regular Diet Discharge Diet Recommended Diet: Regular Diet Pending Studies Studies pending at discharge: no List of pending studies: blood culture, no growth no date Medical Emergencies . Who to Call and When: Medical Emergencies: If at any time you feel your situation is an emergency, please call 911 immediately. . Non-Emergent Contact Non-Emergency issues call your: Primary Care Provider . . "Provider Documentation" section prepared by Dick Antonio. . VTE Core Measure Inpt VTE Proph given/why not?: Other Anticoagulation (Xarelto)
--- NOTE | 2017-01-14 11:49 | Discharge Summary ---
Discharge Summary Date of Service Jan 14, 2017. (Dick Antonio MD) Discharge Summary Admission Date: Jan 13, 2017 at 19:38 Discharge Date: Jan 14, 2017 Discharge Disposition: Home Principal Diagnosis: UTI Immunizations: Have You Had Influenza Vaccine: Unknown History of Tetanus Vaccine?: Unknown History of Pneumococcal: Unknown History of Hepatitis B Vaccine: Unknown (Dick Antonio MD) Medication Reconciliation New Medications: Ceftolozane Sulfate-Tazobactam (Zerbaxa 1-0.5 gm) 1 Inj Inj 1.5 GM IART Q8H for 6 Days, BTL Changed Medications: Rivaroxaban (Xarelto) 15 Mg Tab 20 MG PO DAILY for 30 Days, TAB (Changed from: 15 MG; BID) Continued Medications: Albuterol Sulfate (Proair Respiclick) 108 Mcg/Act Aer 2 PUFFS INH Q4-6HRS PRN for SOB/Wheezing Benzonatate (Tessalon Perles) 100 Mg Cap 100 MG PO TID PRN for Cough, CAP Benztropine Mesylate (Benztropine Mesylate) 1 Mg Tab 1 MG PO BID Cholecalciferol (Vitamin D) 2,000 Unit Cap 2000 INTER.UNIT PO DAILY Clonazepam (Klonopin) 0.5 Mg Tab 0.5 MG PO BID, TAB Cyanocobalamin (Vitamin B-12) 500 Mcg Tab 500 MCG PO DAILY Dihydroergotamine Mesylate (Migranal) 4 Mg/Ml [place] 1 SPRAY EDIE UD PRN for Migraine ONE SPRAY IN EACH NOSTRIL, REPEAT DOSE AFTER 15 MINUTES IF NEEDED. MAXIMUM 2 DOSES IN 24 HOURS AND 4 DOSES PER 7 DAYS. Docusate Sodium (Dulcolax Stool Softener) 100 Mg Cap 100 MG PO BID PRN for Constipation Ergotamine Tartrate (Ergomar) 2 Mg Sub 2 MG PO UD, #8 Ferrous Sulfate (Ferrous Sulfate) 325 Mg Tab 325 MG PO BID Fluticasone Prop/Salmeterol (Advair Diskus 500/50 60 Dose) 1 Ea Aerp 1 PUFF INH BID, INHALER Gabapentin (Gabapentin) 300 Mg Cap 300 MG PO TID Hydroxyzine Hcl (Atarax) 25 Mg Tab 50 MG PO HS, TAB Hyoscyamine Sulfate (Levsin) 0.125 Mg Tab 0.125 MG PO TID Indomethacin (Indomethacin) 25 Mg Cap 25 MG PO 2XWK PRN for Headache TAKE THIS MEDICATION WITH FOOD Levalbuterol (Levalbuterol HCl) 0.63 Mg/3 Ml Nebu 3 ML NEB Q6-8HRS PRN for Shortness of Breath Levothyroxine Sodium (Levothyroxine Sodium) 25 Mcg Tab 25 MCG PO DAILY Linaclotide (Linzess) 290 Mcg Cap 290 MCG PO QAM [place] Carbonate ([place] Carbonate) 600 Mg Cap 600 MG PO QPM, CAP TAKE THIS MEDICATION WITH EVENING MEAL [place] Carbonate Er (Lithobid Ext Rel) 450 Mg Tab 450 MG PO QAM Meclizine Hcl (Meclizine Hcl) 25 Mg Tab 25 MG PO TID PRN for Dizziness or Vertigo, TAB Montelukast Sod (Montelukast Sodium) 10 Mg Tab 10 MG PO HS Multiple Vitamin (Multivitamin) 1 Tab Tab 1 TAB PO DAILY, TAB Nortriptyline Hcl (Pamelor) 75 Mg Cap 75 MG PO HS, CAP TAKE ONE 75 MG CAPSULE ALONG WITH ONE 25 MG CAPSULE TO EQUAL BEDTIME DOSE OF 100 MG Nortriptyline Hcl (Pamelor) 25 Mg Cap 25 MG PO HS TAKE ONE 25 MG CAPSULE ALONG WITH ONE 75 MG CAPSULE TO EQUAL BEDTIME DOSE OF 100 MG Nystatin (Topical) (Nystop) 100,000 Unit/Gm Pow 1 APPLN TOP PRN Ondasetron Odt (Zofran Odt) 4 Mg Tab 4 MG SL Q8 PRN for Nausea, TAB Pantoprazole (Pantoprazole Sodium) 40 Mg Tab 40 MG PO QAM TAKE THIS MEDICATION ONCE DAILY 30 MINUTES BEFORE BREAKFAST Probiotic Product (Probiotic) 1 Cap Cap 1 CAP PO DAILY Ranitidine Hcl (Zantac) 150 Mg Tab 150 MG PO HS, TAB Risperidone (Risperidone) 1 Mg Tab 1 MG PO BID Sennosides (Senna Lax) 8.6 Mg Tab 8.6 MG PO DAILY Topiramate (Trokendi Xr) 100 Mg Cap 100 MG PO BID, #60 Tramadol HCl (Tramadol HCl) 50 Mg Tab 50 MG PO Q4 PRN for Pain Wound Dressings (Hydrofera Blue Foam Dress) 1 Pad Pad 1 EA EXT UD 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 Discontinued Medications: Nitrofurantoin Monohyd Macrocr (Macrobid) 100 Mg Cap 100 MG PO BID, #20 TAB Discharge Exam Patient was seen at the bedside. She was comfortably lying down on her bed. She complains lower abdominal pain, which is going for past 5 days. She states that it is better than before. Also complains of urinary urgency and burning sensation. Denies nausea, vomiting or fever. Review of Systems: Constitutional: No fever Respiratory: No cough, No wheezing, No shortness of breath Abdomen: + pain (lower abdominal pain, improving), No nausea, No vomiting Genitourinary - Female: + urinary urgency Integumentary: No rash Physical Exam: General Appearance: WD/WN, no apparent distress, + obese Neck: supple, trachea midline Respiratory/Chest: chest non-tender, lungs clear, normal breath sounds, no respiratory distress, no accessory muscle use Cardiovascular: regular rate, rhythm Abdomen / GI: normal bowel sounds, non tender, soft Extremities: + pertinent finding (b/l below knee amputation) Neurologic/Psychiatric: alert, normal mood/affect Skin: normal color, warm/dry, no rash (Dick Antonio MD) Review of Systems: Constitutional: No fever Respiratory: No shortness of breath Cardiovascular: No chest pain Abdomen: No pain Genitourinary - Female: + dysuria Endocrine: No fatigue Physical Exam: General Appearance: no apparent distress Respiratory/Chest: lungs clear, no respiratory distress Cardiovascular: regular rate, rhythm Abdomen / GI: normal bowel sounds, non tender, soft Neurologic/Psychiatric: alert, oriented x 3 Skin: warm/dry (Tanya Kennedy M.D.) Hospital Course This is a 31 y/o female with PMHx of spina bifida, hydrocephalus, 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 Her urine was taken 2 days ago when she presented to the ED for headache. ID was consulted and patient was admitted to the floor for further management. UTI - Urine culture showed MDR pseudomonas. She is also allergic to multiple antibiotics. ID was consulted. Patient has suprapubic catheter. In October she was admitted to the hospital for UTI and was treatment with Zerbaxa and patient symptoms improved. Patient was started on IV Zerbaxa 1.5gm IV q8h X7days. Case management was on board. She spoke with [facility] and they said patient can be discharge home after her afternoon dose. [facility] will have 2000dose available at home. Patient stated that she has had antibiotics in the past and her mother and her feel comfortable with administration. maintenance electrician was deferred to [facility]. Patient was stable to be discharge home on Zerbaxa 1.5gm for total 7 days course. Xarelto dose needs to be clarified with the primary doctor. It was report on the chart that she take 15mg BID; however pharmacist informed me that she supposed to take it 20mg daily. Total Time Spent: Greater than 30 minutes This includes examination of the patient, discharge planning, medication reconciliation, and communication with other providers. (Dick Antonio MD) Resident Physician Supervision Note: I was present with Dr. Antonio in bedside. I verified the canales history and physical , reviewed labs and image studies, discussed the case with the resident and agree with the findings and care plan. Total Time Spent: Greater than 30 minutes (35) (Tanya Kennedy M.D.) Discharge Instructions Please refer to the electronic Patient Visit Report (Discharge Instructions) for additional information. (Dick Antonio MD) Additional Copies To Laura Gonzalez P.A.
[2017-01-14] MEDS ORDERED: RIVA1.5T PO ×2 (12:41)
[2017-01-14] MEDS ORDERED: LITHIUM CARBONATE 300 MG TAB PO SCH (17:00)
--- NOTE | 2017-01-20 10:31 | Medical Consult ---
Consultation Note Date of Service Jan 20, 2017. Consultation Note This patient was admitted and discharged the following morning, before Infectious Disease could see patient, therefore no Infectious Disease consultation was performed.
[2017-02-10] MEDS ORDERED: PRT/40 PO ×2 (16:40)
[2017-02-10] MEDS ORDERED: ZNT/150 PO ×2 (17:28)
[2017-02-14] MEDS ORDERED: PRT/40 PO (15:35)
[2017-02-14] MEDS ORDERED: [UNRECOGNIZED DRUG - CODE] IV (15:35)
[2017-02-14] MEDS ORDERED: MTRG45 TOP (15:35)
[2017-02-14] MEDS ORDERED: XRL20 PO (15:35)
[2017-02-14] MEDS ORDERED: POTA10CA28 PO (16:29)
[2017-02-14] MEDS ORDERED: MGNO400 PO (16:29)
[2017-03-09] MEDS ORDERED: DOXYCYLINE PO (12:59)
[2017-03-09] MEDS ORDERED: TOBRAMYCIN PO (12:59)
[2017-03-15] MEDS ORDERED: CHOL200010 PO ×2 (13:04)
[2017-03-15] MEDS ORDERED: ADVIN50/60 INH ×2 (13:04)
[2017-03-15] MEDS ORDERED: NRT/25 PO ×2 (13:23)
[2017-03-15] MEDS ORDERED: MGRSP NAE ×2 (13:52)
[2017-03-15] MEDS ORDERED: WOUN1PAD EXT ×2 (13:52)
[2017-03-15] MEDS ORDERED: MECL1TAB42 PO ×2 (13:52)
[2017-03-15] MEDS ORDERED: VTMB12 PO ×2 (15:08)
[2017-03-15] MEDS ORDERED: GABA1CAP4 PO ×2 (16:40)
[2017-03-15] MEDS ORDERED: LINA1CAP2 PO ×2 (16:40)
[2017-03-15] MEDS ORDERED: HYOS1TAB PO ×2 (16:40)
[2017-03-15] MEDS ORDERED: INDO1CAP34 PO ×2 (16:58)
[2017-03-15] MEDS ORDERED: LITH1TAB PO ×2 (16:58)
[2017-03-15] MEDS ORDERED: RSP1 PO ×2 (16:58)
[2017-03-15] MEDS ORDERED: SNG10 PO ×2 (16:58)
[2017-03-15] MEDS ORDERED: FERR325T PO ×2 (17:26)
[2017-03-15] MEDS ORDERED: ONDA4TAB10 SL ×2 (17:26)
[2017-03-15] MEDS ORDERED: ULT50 PO ×2 (17:26)
[2017-03-15] MEDS ORDERED: CLON0.5T3 PO ×2 (17:27)
[2017-03-15] MEDS ORDERED: SENN8.6T13 PO ×2 (17:28)
[2017-03-15] MEDS ORDERED: DOCU-105 PO ×2 (17:35)
[2017-03-15] MEDS ORDERED: MULTTAB58 PO ×2 (18:07)
[2017-03-15] MEDS ORDERED: NORT75CA PO ×2 (18:38)
[2017-03-15] MEDS ORDERED: [UNRECOGNIZED DRUG - CODE] PO ×2 (19:25)
[2017-03-15] MEDS ORDERED: NYST100010 TOP ×2 (20:28)
[2017-03-15] MEDS ORDERED: MISCCAP80 PO ×2 (20:28)
[2017-03-15] MEDS ORDERED: TOPI1CAP3 PO ×2 (20:28)
[2017-03-15] MEDS ORDERED: CGN1X PO ×2 (22:29)
[2017-03-15] MEDS ORDERED: LITH600C PO ×2 (22:29)
[2017-03-15] MEDS ORDERED: ALBU18002 INH ×2 (22:29)
== END 2017-01-14 13:43 | disposition home health service (06) ==
LOC: C.EDB 16:39 → UNDOADMOB 19:38 → C.4E 19:38 → EDBEDREQ 20:08 → ENRESERV 20:12
PROVIDERS: ADMIT Student in an Organized Health Care Education/Training Program; ATTEND Family Medicine
DX: N39.0 Urinary tract infection, site not specified (principal); E86.0 Dehydration; F31.9 Bipolar disorder, unspecified; F25.9 Schizoaffective disorder, unspecified; K31.84 Gastroparesis; K21.9 Gastro-esophageal reflux disease without esophagitis; J45.909 Unspecified asthma, uncomplicated; Z79.01 Long term (current) use of anticoagulants; Z86.718 Personal history of other venous thrombosis and embolism; Z86.711 Personal history of pulmonary embolism; Z89.512 Acquired absence of left leg below knee; Z89.511 Acquired absence of right leg below knee; Z83.3 Family history of diabetes mellitus

== ENCOUNTER → 2017-01-18 | Outpatient (CLI) | payer BC, OTHER ==
[~2017-01-18] MED LIST changes: +ADVIN50/60 INH; +ALBU18002 INH; +CGN1X PO; +CHOL200010 PO; +CLON0.5T3 PO; +DOCU-105 PO; +DOXYCYLINE PO; +FERR325T PO; +GABA1CAP4 PO; +HYOS1TAB PO; +INDO1CAP34 PO; +LEVO50TA6 PO; +LINA1CAP2 PO; +LITH1TAB PO; +LITH600C PO; +MECL1TAB42 PO; +METR0.7527 TOP; +MGNO400 PO; +MGRSP NAE; +MISCCAP80 PO; +MTRCR45 TP; +MTRG45 TOP; +MULTTAB58 PO; +NORT75CA PO; +NRT/25 PO; +NYST100010 TOP; +ONDA4TAB10 SL; +PANT40TA PO; +POTA10CA28 PO; +PRT/40 PO; +RIVA1TAB4 PO; +RSP1 PO; +SENN8.6T13 PO; +SNG10 PO; +TOBRAMYCIN PO; +TOPI1CAP3 PO; +ULT50 PO; +VST25HP PO; +VTMB12 PO; +WOUN1PAD EXT; +XRL20 PO; +ZNT/150 PO; +[UNRECOGNIZED DRUG - CODE] IART; +[UNRECOGNIZED DRUG - CODE] IV; +[UNRECOGNIZED DRUG - CODE] IV; +[UNRECOGNIZED DRUG - CODE] PO
[2017-01-18 13:57] LABS: URINE APPEARANCE CLEAR (CLEAR); URINE BILIRUBIN NEG (NEG); URINE COLOR COLORLESS; URINE NITRITE NEG (NEG); URINE SPECIFIC GRAVITY <= 1.005 (1.000-1.030); UROBILINOGEN NEG (NEG)
[2017-01-18 14:07] LABS: MANUAL MICROSCOPIC REQUIRED? YES; REVIEW REQ? NO
[2017-01-18 14:20] LABS: URINE EPITHELIAL CELL AUTO 0-5 /lpf (0-5)
[2017-01-18 19:45] LABS: URINE BACTERIA NEG (NEG); URINE RBC 0-4 /hpf (0-4); URINE WBC 0 /hpf (0-5)
== END | disposition home or self-care (01) ==
LOC: C.LABBC 11:58
PROVIDERS: ATTEND Physician Assistant Medical
DX: N39.0 Urinary tract infection, site not specified (principal); E03.9 Hypothyroidism, unspecified; L89.893 Pressure ulcer of other site, stage 3; S81.802A Unspecified open wound, left lower leg, initial encounter; X58.XXXA Exposure to other specified factors, initial encounter; J45.909 Unspecified asthma, uncomplicated; K31.84 Gastroparesis; K21.9 Gastro-esophageal reflux disease without esophagitis; Z90.49 Acquired absence of other specified parts of digestive tract; F31.9 Bipolar disorder, unspecified; F20.9 Schizophrenia, unspecified; Q05.9 Spina bifida, unspecified; Z91.5 Personal history of self-harm; Z89.511 Acquired absence of right leg below knee; Z86.14 Personal history of Methicillin resistant Staphylococcus aureus infection; Z83.6 Family history of other diseases of the respiratory system; Z83.3 Family history of diabetes mellitus

== ENCOUNTER → 2017-01-20 | Outpatient (CLI) | payer BC, OTHER ==
[~2017-01-20] MED LIST changes: -NITR-5 PO
[2017-01-20 13:56] LABS: PHOSPHORUS 2.9 mg/dl (2.5-4.9); THYROID STIMULATING HORMONE 6.31 uIu/ml (0.300-4.500)
== END | disposition home or self-care (01) ==
LOC: C.LABBC 10:56
PROVIDERS: ATTEND Psychiatry & Neurology Neurology
DX: R41.82 Altered mental status, unspecified (principal)

== ENCOUNTER 2017-01-23 12:00 | Emergency (ER) | payer BC, OTHER ==
[~2017-01-23] VITALS: Ht 119.4 cm; Wt 118.5 kg
[~2017-01-23 12:00] MED LIST changes: -ADVIN50/60 INH; -ALBU18002 INH; -CGN1X PO; -CHOL200010 PO; -CLON0.5T3 PO; -DOCU-105 PO; -DOXYCYLINE PO; -FERR325T PO; -GABA1CAP4 PO; -HYOS1TAB PO; -INDO1CAP34 PO; -LEVO50TA6 PO; -LINA1CAP2 PO; -LITH1TAB PO; -LITH600C PO; -MECL1TAB42 PO; -METR0.7527 TOP; -MGNO400 PO; -MGRSP NAE; -MISCCAP80 PO; -MTRCR45 TP; -MTRG45 TOP; -MULTTAB58 PO; -NORT75CA PO; -NRT/25 PO; -NYST100010 TOP; -ONDA4TAB10 SL; -PANT40TA PO; -POTA10CA28 PO; -PRT/40 PO; -RIVA1TAB4 PO; -RSP1 PO; -SENN8.6T13 PO; -SNG10 PO; -TOBRAMYCIN PO; -TOPI1CAP3 PO; -ULT50 PO; -VST25HP PO; -VTMB12 PO; -WOUN1PAD EXT; -XRL20 PO; -ZNT/150 PO; -[UNRECOGNIZED DRUG - CODE] IV; -[UNRECOGNIZED DRUG - CODE] IV; -[UNRECOGNIZED DRUG - CODE] PO
[2017-01-23 12:08] VITALS: TEMP 36.4
[2017-01-23] MEDS ORDERED: MoRPHine SULFATE 4 MG/ML 1 ML CARP\\VIAL IV STA (13:44)
[2017-01-23 13:52] VITALS: Ht 119.4 cm; Wt 118.5 kg
--- NOTE | 2017-01-23 15:30 | DIAGNOSTIC IMAGING REPORT ---
VENOUS DOPPLER LWR EXT BILA CLINICAL HISTORY: 31 years-old Female presenting with b/l stump pain, hx clots. TECHNIQUE: Real-time grayscale and color and spectral Doppler ultrasound imaging of the veins of the bilateral lower extremities was performed. Compression and augmentation were also utilized. COMPARISON: 05/09/2016. FINDINGS: Right: Common femoral vein: Patent. Femoral vein: Patent. Greater saphenous vein: Patent. Popliteal vein: Patent. Left: Common femoral vein: Patent. Femoral vein: Patent. Greater saphenous vein: Patent. Popliteal vein: Patent. Other: Bilateral below the knee after indications reported. IMPRESSION: No evidence of deep venous thrombosis. Electronically signed by: Chris Blanco M.D. 01/23/2017 3:28 PM Dictated Date/Time: 01/23/2017 3:28 PM
[2017-01-23 15:59] LABS: BASO % 0.4 %; BASO ABS # 0.03 K/uL (0-0.2); COMPLETE YES; EOS % 4.5 %; HEMATOCRIT 38.2 % (37-47); IG% 0.4 %; LYMPH % 25.5 %; LYMPH ABS # 2.15 K/uL (1.2-3.4); MEAN CELL VOLUME 96.2 fL (80-100); MEAN CORPUSCULAR HEMOGLOBIN 30.2 pg (25-34); MEAN CORPUSCULAR HGB CONC 31.4 g/dl (32-36); MEAN PLATELET VOLUME 9.5 fL (7.4-10.4); MONO % 6.4 %; NEUT % 62.8 %; PLATELET COUNT 230 K/uL (130-400); RED BLOOD COUNT 3.97 M/uL (4.2-5.4); WHITE BLOOD COUNT 8.42 K/uL (4.8-10.8)
[2017-01-23 16:09] LABS: INR 1.2 (0.9-1.1)
[2017-01-23 16:31] LABS: BUN/CREATININE RATIO 14.1 (10-20); CALCIUM 8.9 mg/dl (8.5-10.1); CREATININE 0.56 mg/dl (0.60-1.20); POTASSIUM 3.6 mmol/L (3.5-5.1)
--- NOTE | 2017-01-23 17:16 | EMERGENCY ROOM VISIT NOTE ---
History First contact with patient: 13:22 Chief Complaint: LEG PAIN,LEG INJURY Stated Complaint: PAIN IN LEGS History of Present Illness The patient is a 31 year old female who presents to the Emergency Room with complaints of bilateral leg pain. The patient states that over the past 3-4 days, she has had severe pain in both of her legs. The patient has bilateral below-knee amputations secondary to osteomyelitis. She states there is a wound on the left stump which she has been following with the wound clinic for. Mother reports that the wound has been gradually improving. She's been taking tramadol and Tylenol at home for the pain without relief. She has a history of pulmonary embolism and currently takes her alto. She states the pain is from her knees up and does not seem to be phantom pain. She rates her overall discomfort a 9/10. She denies any fevers/chills, numbness or weakness. Review of Systems A complete 10 point review of systems was reviewed with the patient with pertinent positives and negatives as per history of present illness. All else were negative. Past Medical/Surgical History Medical Problems: (1) Allergic reaction caused by a drug (2) Anxiety (3) Asthma (4) Asthma exacerbation (5) Bipolar 1 disorder (6) Cellulitis (7) Depression (8) Gastroparesis (9) GERD (gastroesophageal reflux disease) (10) Hydrocephalus (11) Intractable headache (12) Migraines (13) MRSA (methicillin resistant Staphylococcus aureus) (14) Osteomyelitis (15) Pulmonary embolism (16) Shunt placement with revision x8 (17) Spina bifida (18) UTI (urinary tract infection) Surgical Problems: (1) S/P BKA (below knee amputation) bilateral Family History Cancer Diabetes mellitus Lung disease Social History Smoking Status: Never Smoker Alcohol Use: none Drug Use: none Marital Status: single Housing Status: lives with family Occupation Status: disabled Current/Historical Medications Scheduled Benztropine Mesylate (Benztropine Mesylate), 1 MG PO BID Ceftolozane Sulfate-Tazobactam (Zerbaxa 1-0.5 gm), 1.5 GM IART Q8H Cholecalciferol (Vitamin D), 2,000 INTER.UNIT PO DAILY Clonazepam (Klonopin), 0.5 MG PO BID Cyanocobalamin (Vitamin B-12), 500 MCG PO DAILY Ergotamine Tartrate (Ergomar), 2 MG PO UD Ferrous Sulfate (Ferrous Sulfate), 325 MG PO BID Fluticasone Prop/Salmeterol (Advair Diskus 500/50 60 Dose), 1 PUFF INH BID Gabapentin (Gabapentin), 300 MG PO TID Hydroxyzine Hcl (Atarax), 50 MG PO HS Hyoscyamine Sulfate (Levsin), 0.125 MG PO TID Levothyroxine Sodium (Levothyroxine Sodium), 50 MCG PO DAILY Linaclotide (Linzess), 290 MCG PO QAM Eolia Carbonate (Eolia Carbonate), 600 MG PO QPM Eolia Carbonate Er (Lithobid Ext Rel), 450 MG PO QAM Montelukast Sod (Montelukast Sodium), 10 MG PO HS Multiple Vitamin (Multivitamin), 1 TAB PO DAILY Nortriptyline Hcl (Pamelor), 75 MG PO HS Nortriptyline Hcl (Pamelor), 25 MG PO HS Nystatin (Topical) (Nystop), 1 APPLN TOP PRN Pantoprazole (Pantoprazole Sodium), 40 MG PO QAM Probiotic Product (Probiotic), 1 CAP PO DAILY Ranitidine Hcl (Zantac), 150 MG PO HS Risperidone (Risperidone), 1 MG PO BID Rivaroxaban (Xarelto), 20 MG PO DAILY Sennosides (Senna Lax), 8.6 MG PO DAILY Topiramate (Trokendi Xr), 100 MG PO BID Wound Dressings (Hydrofera Blue Foam Dress), 1 EA EXT UD Scheduled PRN Albuterol Sulfate (Proair Respiclick), 2 PUFFS INH Q4-6HRS PRN for SOB/Wheezing Benzonatate (Tessalon Perles), 100 MG PO TID PRN for Cough Dihydroergotamine Mesylate (Migranal), 1 SPRAY EDIE UD PRN for Migraine Docusate Sodium (Dulcolax Stool Softener), 100 MG PO BID PRN for Constipation Indomethacin (Indomethacin), 25 MG PO 2XWK PRN for Headache Levalbuterol (Levalbuterol HCl), 3 ML NEB Q6-8HRS PRN for Shortness of Breath Meclizine Hcl (Meclizine Hcl), 25 MG PO TID PRN for Dizziness or Vertigo Ondasetron Odt (Zofran Odt), 4 MG SL Q8 PRN for Nausea Tramadol HCl (Tramadol HCl), 50 MG PO Q4 PRN for Pain Physical Exam Vital Signs Date Time Temp Pulse Resp B/P (MAP) Pulse Ox O2 Delivery O2 Flow Rate FiO2 01/23/17 17:52 90 17 93/68 97 01/23/17 15:35 82 18 112/59 93 Room Air 01/23/17 13:57 84 18 128/83 95 Room Air 01/23/17 12:08 36.4 91 22 157/83 98 Room Air Physical Exam VITALS: Vitals are noted on the nurse's note and reviewed by myself. Vital signs stable. GENERAL: This is a 31-year-old female, in no acute distress, nondiaphoretic, well-developed well-nourished. SKIN: There is a pressure ulcer to the left stump with a small amount of serous drainage. No surrounding erythema or induration. EYES: Pupils equal round and reactive to light and accommodation. MOUTH: Mucous membranes moist. NECK: Supple without nuchal rigidity. HEART: Regular rate and rhythm without murmurs gallops or rubs. LUNGS: Clear to auscultation bilaterally without wheezes, rales or rhonchi. MUSCULOSKELETAL: No tenderness to palpation of the legs. NEURO: Speech is slightly slurred, patient slow to answer questions but does answer appropriately. Medical Decision & Procedures ER Provider Diagnostic Interpretation: VENOUS DOPPLER LWR EXT BILA CLINICAL HISTORY: 31 years-old Female presenting with b/l stump pain, hx clots. TECHNIQUE: Real-time grayscale and color and spectral Doppler ultrasound imaging of the veins of the bilateral lower extremities was performed. Compression and augmentation were also utilized. COMPARISON: 05/09/2016. FINDINGS: Right: Common femoral vein: Patent. Femoral vein: Patent. Greater saphenous vein: Patent. Popliteal vein: Patent. Left: Common femoral vein: Patent. Femoral vein: Patent. Greater saphenous vein: Patent. Popliteal vein: Patent. Other: Bilateral below the knee after indications reported. IMPRESSION: No evidence of deep venous thrombosis. Laboratory Results 01/23/17 15:50 Red Blood Count 3.97, Mean Corpuscular Volume 96.2, Mean Corpuscular Hemoglobin 30.2, Mean Corpuscular Hemoglobin Concent 31.4, Mean Platelet Volume 9.5, Neutrophils (%) (Auto) 62.8, Lymphocytes (%) (Auto) 25.5, Monocytes (%) (Auto) 6.4, Eosinophils (%) (Auto) 4.5, Basophils (%) (Auto) 0.4, Neutrophils # (Auto) 5.29, Lymphocytes # (Auto) 2.15, Monocytes # (Auto) 0.54, Eosinophils # (Auto) 0.38, Basophils # (Auto) 0.03 01/23/17 15:50 Test 01/23/17 15:50 White Blood Count 8.42 K/uL (4.8-10.8) Red Blood Count 3.97 M/uL (4.2-5.4) Hemoglobin 12.0 g/dL (12.0-16.0) Hematocrit 38.2 % (37-47) Mean Corpuscular Volume 96.2 fL (80-100) Mean Corpuscular Hemoglobin 30.2 pg (25-34) Mean Corpuscular Hemoglobin Concent 31.4 g/dl (32-36) Platelet Count 230 K/uL (130-400) Mean Platelet Volume 9.5 fL (7.4-10.4) Neutrophils (%) (Auto) 62.8 % Lymphocytes (%) (Auto) 25.5 % Monocytes (%) (Auto) 6.4 % Eosinophils (%) (Auto) 4.5 % Basophils (%) (Auto) 0.4 % Neutrophils # (Auto) 5.29 K/uL (1.4-6.5) Lymphocytes # (Auto) 2.15 K/uL (1.2-3.4) Monocytes # (Auto) 0.54 K/uL (0.11-0.59) Eosinophils # (Auto) 0.38 K/uL (0-0.5) Basophils # (Auto) 0.03 K/uL (0-0.2) RDW Standard Deviation 54.3 fL (36.4-46.3) RDW Coefficient of Variation 15.4 % (11.5-14.5) Immature Granulocyte % (Auto) 0.4 % Immature Granulocyte # (Auto) 0.03 K/uL (0.00-0.02) Prothrombin Time 13.0 SECONDS (9.0-12.0) Prothromb Time International Ratio 1.2 (0.9-1.1) Activated Partial Thromboplast Time 27.1 SECONDS (21.0-31.0) Partial Thromboplastin Ratio 1.0 Anion Gap 6.0 mmol/L (3-11) Est Creatinine Clear Calc Drug Dose 132.8 ml/min Estimated GFR () 146.0 Estimated GFR (Non- 126.0 BUN/Creatinine Ratio 14.1 (10-20) Calcium Level 8.9 mg/dl (8.5-10.1) Medications Administered Medications (Trade) Dose Ordered Sig/Brenna Route Start Time Stop Time Status Last Admin Dose Admin Morphine Sulfate (MoRPHine SULFATE INJ) 4 mg NOW STAT IV 01/23/17 13:44 01/23/17 13:46 DC 01/23/17 14:27 4 MG ED Course The patient was evaluated as above. Labs were drawn and IV access was obtained. Patient was medicated with 4 mg morphine IV. Venous US was performed and read by radiology as above. Patient was reevaluated and findings were discussed with the patient and her mother. Discharge instructions were reviewed with the patient. The patient verbalized understanding of my assessment and treatment plan and was discharged home in good condition. Medical Decision Differential diagnosis includes DVT, superficial thrombosis, infection, electrolyte abnormality, muscular pain, phantom limb pain, among others. The patient is a 31-year-old female who presents today complaining of bilateral leg pain. Patient has bilateral amputations. There is no evidence of osteomyelitis or worsening infection from the pressure ulcer of her left stump at this time. Labs revealed no leukocytosis. Ultrasound of bilateral legs was performed and showed no evidence of DVT. I am unsure of the cause of the patient's pain. She has had pain intermittently for a few weeks and states she has mentioned it to her primary care provider. She was provided with 1 dose of morphine here and encouraged to continue the pain medication at home and follow- up with her primary care provider for further evaluation. She asked about changing the dose of tramadol and I recommended that she bring this up with her PCP. Based on the patient's presentation and work up, I feel the patient is stable for outpatient treatment. The patient was educated to return to the emergency department for any worsening of their current condition or new/concerning symptoms. She will follow up with her PCP. The patient's case was reviewed with Dr. Nevarez, ED attending physician, who agreed with my assessment and treatment plan. Medication Reconcilliation Current Medication List: was personally reviewed by me Blood Pressure Screening Patient's blood pressure: Normal blood pressure Impression Primary Impression: Bilateral leg pain Departure Information Dispostion Home / Self-Care Condition GOOD Referrals Laura GonzalezPMikeA. (PCP) Patient Instructions My [facility] Additional Instructions Continue the tramadol and Tylenol at home as needed for pain. Follow-up with the primary care provider and neurologist for further evaluation and treatment.
[2017-01-23 17:52] VITALS: BP 93/68; PULSE 90; O2SAT 97
[2017-02-10] MEDS ORDERED: PRT/40 PO (16:40)
[2017-02-14] MEDS ORDERED: [UNRECOGNIZED DRUG - CODE] IV (15:35)
[2017-02-14] MEDS ORDERED: MTRG45 TOP (15:35)
[2017-02-14] MEDS ORDERED: PRT/40 PO (15:35)
[2017-02-14] MEDS ORDERED: XRL20 PO (15:35)
[2017-02-14] MEDS ORDERED: MGNO400 PO (16:29)
[2017-02-14] MEDS ORDERED: POTA10CA28 PO (16:29)
[2017-03-09] MEDS ORDERED: DOXYCYLINE PO (12:59)
[2017-03-09] MEDS ORDERED: TOBRAMYCIN PO (12:59)
[2017-03-15] MEDS ORDERED: ADVIN50/60 INH (13:04)
[2017-03-15] MEDS ORDERED: CHOL200010 PO (13:04)
[2017-03-15] MEDS ORDERED: NRT/25 PO (13:23)
[2017-03-15] MEDS ORDERED: WOUN1PAD EXT (13:52)
[2017-03-15] MEDS ORDERED: MECL1TAB42 PO (13:52)
[2017-03-15] MEDS ORDERED: MGRSP NAE (13:52)
[2017-03-15] MEDS ORDERED: VTMB12 PO (15:08)
[2017-03-15] MEDS ORDERED: LINA1CAP2 PO (16:40)
[2017-03-15] MEDS ORDERED: HYOS1TAB PO (16:40)
[2017-03-15] MEDS ORDERED: GABA1CAP4 PO (16:40)
== END 2017-01-23 18:00 | disposition home or self-care (01) ==
LOC: C.EDB 12:01 → C.EDC 18:00
DX: M79.604 Pain in right leg (principal); M79.605 Pain in left leg; S88.012A Complete traumatic amputation at knee level, left lower leg, initial encounter; S88.011A Complete traumatic amputation at knee level, right lower leg, initial encounter; F41.9 Anxiety disorder, unspecified; J45.909 Unspecified asthma, uncomplicated; F31.9 Bipolar disorder, unspecified; F32.9 Major depressive disorder, single episode, unspecified; K21.9 Gastro-esophageal reflux disease without esophagitis; M86.9 Osteomyelitis, unspecified; Z83.3 Family history of diabetes mellitus

== ENCOUNTER → 2017-01-25 | Outpatient (CLI) | payer BC, OTHER ==
[~2017-01-25] MED LIST changes: +ADVIN50/60 INH; +ALBU18002 INH; +CGN1X PO; +CHOL200010 PO; +CLON0.5T3 PO; +DOCU-105 PO; +DOXYCYLINE PO; +FERR325T PO; +GABA1CAP4 PO; +HYOS1TAB PO; +INDO1CAP34 PO; +LEVO50TA6 PO; +LINA1CAP2 PO; +LITH1TAB PO; +LITH600C PO; +MECL1TAB42 PO; +METR0.7527 TOP; +MGNO400 PO; +MGRSP NAE; +MISCCAP80 PO; +MTRCR45 TP; +MTRG45 TOP; +MULTTAB58 PO; +NORT75CA PO; +NRT/25 PO; +NYST100010 TOP; +ONDA4TAB10 SL; +PANT40TA PO; +POTA10CA28 PO; +PRT/40 PO; +RIVA1TAB4 PO; +RSP1 PO; +SENN8.6T13 PO; +SNG10 PO; +TOBRAMYCIN PO; +TOPI1CAP3 PO; +ULT50 PO; +VST25HP PO; +VTMB12 PO; +WOUN1PAD EXT; +XRL20 PO; +ZNT/150 PO; +[UNRECOGNIZED DRUG - CODE] IV; +[UNRECOGNIZED DRUG - CODE] IV; +[UNRECOGNIZED DRUG - CODE] PO
[2017-01-25 17:49] LABS: BENZODIAZEPINE, URINE NEG (NEG); COCAINE,URINE NEG (NEG); PHENCYCLIDINE, URINE NEG (NEG)
== END | disposition home or self-care (01) ==
LOC: C.LABBC 12:54
PROVIDERS: ATTEND Internal Medicine Infectious Disease
DX: N39.0 Urinary tract infection, site not specified (principal); L89.893 Pressure ulcer of other site, stage 3; S81.802A Unspecified open wound, left lower leg, initial encounter; X58.XXXA Exposure to other specified factors, initial encounter; J45.909 Unspecified asthma, uncomplicated; K31.84 Gastroparesis; K21.9 Gastro-esophageal reflux disease without esophagitis; Z90.49 Acquired absence of other specified parts of digestive tract; E03.9 Hypothyroidism, unspecified; F31.9 Bipolar disorder, unspecified; F20.9 Schizophrenia, unspecified; Q05.9 Spina bifida, unspecified; Z91.5 Personal history of self-harm; Z89.511 Acquired absence of right leg below knee; Z86.14 Personal history of Methicillin resistant Staphylococcus aureus infection; Z83.6 Family history of other diseases of the respiratory system; Z83.3 Family history of diabetes mellitus

== ENCOUNTER → 2017-01-27 | Outpatient (CLI) | payer BC, OTHER ==
[~2017-01-27] MED LIST changes: +OPTIRAY 320 IV PRN
--- NOTE | 2017-01-27 13:20 | DIAGNOSTIC IMAGING REPORT ---
LEFT LOWER LEG CT CT DOSE: 349.48 mGy.cm HISTORY: Left LEG PAIN SWELLING TECHNIQUE: Multiaxial CT images of the left lower leg were performed and reformatted in the sagittal and coronal plane without the use of contrast. A dose lowering technique was utilized adhering to the principles of ALARA. COMPARISON: Left knee 12/14/2016. FINDINGS: Patient is status post below the knee amputation. This is at the mid tibial/fibular shafts. There is no cortical destruction or erosions to suggest osteomyelitis at this time. The bones are osteopenic. No acute fracture or dislocation. Subcutaneous edema throughout the residual lower leg. There is also mild skin thickening at the stump. Irregular and linear areas of soft tissue extending from the resected distal ends of the tibia/fibula to the skin surface at the stump. There is also associated soft tissue edema at this location. No definite loculated fluid collections to suggest an abscess at this time. Diffuse and complete muscle fatty atrophy. The arteries are hypoplastic. Small bone infarct within the proximal tibia. There is also groundglass opacity within the posterior aspect of the medial femoral condyle. This also represents a bone infarct/avascular necrosis. IMPRESSION: 1. Bone infarct within the proximal tibia. 2. Heterogeneous groundglass area within the posterior aspect of the medial femoral condyle. This is consistent with a bone infarct/avascular necrosis. 3. Trace knee effusion. 4. Status post below the knee amputation. No areas of cortical destruction or erosion within the visualized osseous structures to suggest osteomyelitis at this time. 3. Irregular soft tissue extending from the resected distal tibia/fibula to the skin surface of the stump. This favors scarring. There is also soft tissue edema at this location. However, no loculated fluid collections to suggest an abscess. 6. Diffuse skin thickening and subcutaneous edema within the lower leg. This may represent a cellulitis. Electronically signed by: Edward Dixon M.D. 01/27/2017 1:18 PM Dictated Date/Time: 01/27/2017 1:10 PM
== END | disposition home or self-care (01) ==
LOC: C.CTS 12:08
PROVIDERS: ATTEND Physician Assistant
DX: M79.605 Pain in left leg (principal); M79.89 Other specified soft tissue disorders; Z89.512 Acquired absence of left leg below knee; M25.462 Effusion, left knee

== ENCOUNTER 2017-02-03 13:46 | Emergency (ER) | payer BC, OTHER ==
[~2017-02-03] VITALS: Ht 119.4 cm; Wt 113.5 kg
[~2017-02-03 13:46] MED LIST changes: -ADVIN50/60 INH; -ALBU18002 INH; -CGN1X PO; -CHOL200010 PO; -CLON0.5T3 PO; -DOCU-105 PO; -DOXYCYLINE PO; -FERR325T PO; -GABA1CAP4 PO; -HYOS1TAB PO; -INDO1CAP34 PO; -LEVO50TA6 PO; -LINA1CAP2 PO; -LITH1TAB PO; -LITH600C PO; -MECL1TAB42 PO; -METR0.7527 TOP; -MGNO400 PO; -MGRSP NAE; -MISCCAP80 PO; -MTRCR45 TP; -MTRG45 TOP; -MULTTAB58 PO; -NORT75CA PO; -NRT/25 PO; -NYST100010 TOP; -ONDA4TAB10 SL; -OPTIRAY 320 IV PRN; -PANT40TA PO; -POTA10CA28 PO; -PRT/40 PO; -RIVA1TAB4 PO; -RSP1 PO; -SENN8.6T13 PO; -SNG10 PO; -TOBRAMYCIN PO; -TOPI1CAP3 PO; -ULT50 PO; -VST25HP PO; -VTMB12 PO; -WOUN1PAD EXT; -XRL20 PO; -ZNT/150 PO; -[UNRECOGNIZED DRUG - CODE] IV; -[UNRECOGNIZED DRUG - CODE] IV; -[UNRECOGNIZED DRUG - CODE] PO
[2017-02-03 13:49] VITALS: TEMP 36.6; Ht 119.4 cm; Wt 113.5 kg
[2017-02-03] MEDS ORDERED: SODIUM CHLORIDE 0.9% 1000ML 1,000 ML IV STA (14:37)
[2017-02-03] MEDS ORDERED: ONDANSETRON 8 MG/54 ML D5W IV STA (14:37)
[2017-02-03] MEDS ORDERED: KETOROLAC TROMETHAMINE 30 MG/ML VIAL IV STA (14:37)
[2017-02-03] MEDS ORDERED: [UNRECOGNIZED DRUG - CODE] IV (14:51)
[2017-02-03 15:09] LABS: BASO % 0.7 %; BASO ABS # 0.05 K/uL (0-0.2); COMPLETE YES; EOS % 5.6 %; HEMATOCRIT 40.1 % (37-47); IG% 0.1 %; LYMPH % 25.4 %; LYMPH ABS # 1.85 K/uL (1.2-3.4); MEAN CELL VOLUME 95.9 fL (80-100); MEAN CORPUSCULAR HEMOGLOBIN 29.9 pg (25-34); MEAN CORPUSCULAR HGB CONC 31.2 g/dl (32-36); MEAN PLATELET VOLUME 9.8 fL (7.4-10.4); NEUT % 61.2 %; PLATELET COUNT 273 K/uL (130-400); RED BLOOD COUNT 4.18 M/uL (4.2-5.4); WHITE BLOOD COUNT 7.27 K/uL (4.8-10.8)
[2017-02-03 15:17] LABS: INR 1.2 (0.9-1.1); PARTIAL THROMBOPLASTIN RATIO 1.2; PROTHROMBIN TIME (PATIENT) 13.3 SECONDS (9.0-12.0)
[2017-02-03 15:21] LABS: ALT/SGPT 22 U/L (12-78); BLOOD UREA NITROGEN 6 mg/dl (7-18); CALCIUM 8.8 mg/dl (8.5-10.1); CARBON DIOXIDE 25 mmol/L (21-32); CHLORIDE 110 mmol/L (98-107); CREATININE 0.58 mg/dl (0.60-1.20); GLUCOSE 95 mg/dl (70-99); MAGNESIUM 2.4 mg/dl (1.8-2.4); POTASSIUM 3.5 mmol/L (3.5-5.1); SODIUM 142 mmol/L (136-145)
--- NOTE | 2017-02-03 15:25 | DIAGNOSTIC IMAGING REPORT ---
CHEST ONE VIEW PORTABLE HISTORY: 31 years-old Female EVALUATE ALTERED MENTAL STATUS/WEAKNESS COMPARISON: Portable chest radiograph 11/17/2016 TECHNIQUE: Portable upright AP view of the chest FINDINGS: Ventriculoperitoneal shunt catheter is again seen. Right subclavian [id number]-u-[id number] catheter is present with distal tip likely within the region of the right atrium. Cardiac silhouette is mildly enlarged. Lungs are hypoinflated with mild left hemidiaphragmatic elevation. No pneumothorax or large pleural effusion. Linear subsegmental bibasilar opacities suggest atelectasis. Patient obesity noted. Bones are grossly intact. IMPRESSION: 1. Linear subsegmental bibasilar opacities suggest atelectasis with persistent left hemidiaphragmatic elevation. 2. Hypoinflation. The above report was generated using voice recognition software. It may contain grammatical, syntax or spelling errors. Electronically signed by: Bob Martino M.D. 02/03/2017 3:23 PM Dictated Date/Time: 02/03/2017 3:22 PM
[2017-02-03 15:30] LABS: ALKALINE PHOSPHATASE 114 U/L (45-117); AST/SGOT 11 U/L (15-37)
--- NOTE | 2017-02-03 15:53 | DIAGNOSTIC IMAGING REPORT ---
HEAD WITHOUT CONTRAST (CT) CLINICAL HISTORY: 31 years-old Female presenting with EVALUATE ALTERED MENTAL STATUS/WEAKNESS. TECHNIQUE: Multidetector CT imaging of the head was performed without the use of intravenous contrast. IV contrast: None. A dose lowering technique was used consistent with the principles of ALARA (as low as reasonably achievable). COMPARISON: 01/11/2017. CT DOSE (mGy.cm): The estimated cumulative dose is 614.27 mGy.cm. FINDINGS: Ball Racker topogram: Unremarkable. The patient is dolichocephalic. A dianne hole is also noted in the right a subtle region. Right transverse frontal ventricular shunt catheter terminates in the region of the right foramen of Monro, unchanged. Ventricular system decompressed. Persistent fullness at the foramen magnum. 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 Chronic encephalomalacia/atrophy of the paramedian occipital lobes, right greater than left, with associated ex vacuo dilatation of the subcortical horn of the right lateral ventricle. No mass effect or midline shift. No hemorrhage or acute territorial infarct. No extra-axial fluid collection. Paranasal sinuses and mastoid air cells clear. Calvarium intact. IMPRESSION: 1. Ventricular shunt catheter in place with appropriate ventricular decompression. No acute intracranial pathology. 2. Congenital anomalies as above. Electronically signed by: Chris Blanco M.D. 02/03/2017 3:52 PM Dictated Date/Time: 02/03/2017 3:46 PM
[2017-02-03 16:34] LABS: URINE APPEARANCE CLEAR (CLEAR); URINE BILIRUBIN NEG (NEG); URINE COLOR YELLOW; URINE NITRITE POS (NEG); URINE PH 6.5 (4.5-7.5); URINE SPECIFIC GRAVITY 1.019 (1.000-1.030); UROBILINOGEN NEG (NEG); ZZURINE CULT IF INDIC CATH YES
[2017-02-03 16:35] LABS: MANUAL MICROSCOPIC REQUIRED? NO; REVIEW REQ? NO
--- NOTE | 2017-02-03 17:11 | EMERGENCY ROOM VISIT NOTE ---
History Report prepared by James: Sagar Avitia Under the Supervision of: Dr. Himanshu Lyman D.O. First contact with patient: 14:07 Chief Complaint: HEADACHE Stated Complaint: HEADACHE History of Present Illness The patient is a 31 year old female who presents to the Emergency Room with complaints of a constant headache for the past few days. The patient states that she feels like her shunt is not working properly. The patient states that she has been having slurred speech, difficulty with word retrieval, and she is having difficulty with her vision. The patient has been taking extra strength Tylenol and tramadol, and she has not had very much appetite recently, and she has been tired. The patient takes Xarelto for blood clots in her lungs, and antibiotics for a UTI. She states that she has had her shunt fixed nine or ten times, and the last time it was fixed was May. Source of History: patient Onset: few days ago Position: head Quality: ache Timing: constant Note: Associated symptoms: Slurred speech, difficulty with word retrieval, and vision problems Review of Systems See HPI for pertinent positives & negatives. A total of 10 systems reviewed and were otherwise negative. Past Medical & Surgical Medical Problems: (1) Allergic reaction caused by a drug (2) Anxiety (3) Asthma (4) Asthma exacerbation (5) Bipolar 1 disorder (6) Cellulitis (7) Depression (8) Gastroparesis (9) GERD (gastroesophageal reflux disease) (10) Hydrocephalus (11) Intractable headache (12) Migraines (13) MRSA (methicillin resistant Staphylococcus aureus) (14) Osteomyelitis (15) Pulmonary embolism (16) Shunt placement with revision x8 (17) Spina bifida (18) UTI (urinary tract infection) Surgical Problems: (1) S/P BKA (below knee amputation) bilateral Family History Cancer Diabetes mellitus Lung disease Social History Smoking Status: Never Smoker Alcohol Use: none Drug Use: none Marital Status: single Housing Status: lives with family Occupation Status: disabled Current/Historical Medications Scheduled Benztropine Mesylate (Benztropine Mesylate), 1 MG PO BID Cholecalciferol (Vitamin D), 2,000 INTER.UNIT PO DAILY Clonazepam (Klonopin), 0.5 MG PO BID Cyanocobalamin (Vitamin B-12), 500 MCG PO DAILY Ergotamine Tartrate (Ergomar), 2 MG PO UD Ferrous Sulfate (Ferrous Sulfate), 325 MG PO BID Fluticasone Prop/Salmeterol (Advair Diskus 500/50 60 Dose), 1 PUFF INH BID Gabapentin (Gabapentin), 300 MG PO TID Hydroxyzine Hcl (Atarax), 50 MG PO HS Hyoscyamine Sulfate (Levsin), 0.125 MG PO TID Levothyroxine Sodium (Levothyroxine Sodium), 50 MCG PO DAILY Linaclotide (Linzess), 290 MCG PO QAM [place] Carbonate ([place] Carbonate), 600 MG PO QPM [place] Carbonate Er (Lithobid Ext Rel), 450 MG PO QAM Montelukast Sod (Montelukast Sodium), 10 MG PO HS Multiple Vitamin (Multivitamin), 1 TAB PO DAILY Nortriptyline Hcl (Pamelor), 75 MG PO HS Nortriptyline Hcl (Pamelor), 25 MG PO HS Nystatin (Topical) (Nystop), 1 APPLN TOP PRN Pantoprazole (Pantoprazole Sodium), 40 MG PO QAM Probiotic Product (Probiotic), 1 CAP PO DAILY Ranitidine Hcl (Zantac), 150 MG PO HS Risperidone (Risperidone), 1 MG PO BID Rivaroxaban (Xarelto), 20 MG PO DAILY Sennosides (Senna Lax), 8.6 MG PO DAILY Tobramycin Sulf (Tobramycin Sulfate), Unknown Dose IV DAILY Topiramate (Trokendi Xr), 100 MG PO BID Wound Dressings (Hydrofera Blue Foam Dress), 1 EA EXT UD Scheduled PRN Albuterol Sulfate (Proair Respiclick), 2 PUFFS INH Q4-6HRS PRN for SOB/Wheezing Dihydroergotamine Mesylate (Migranal), 1 SPRAY EDIE UD PRN for Migraine Docusate Sodium (Dulcolax Stool Softener), 100 MG PO BID PRN for Constipation Indomethacin (Indomethacin), 25 MG PO 2XWK PRN for Headache Meclizine Hcl (Meclizine Hcl), 25 MG PO TID PRN for Dizziness or Vertigo Ondasetron Odt (Zofran Odt), 4 MG SL Q8 PRN for Nausea Tramadol HCl (Tramadol HCl), 50 MG PO Q4 PRN for Pain Allergies Coded Allergies: Adhesives (Verified Allergy, Intermediate, TAPE- HIVES, 01/13/17) Ceftriaxone (Verified Allergy, Intermediate, rash, 01/13/17) Chlorhexidine (Verified Allergy, Intermediate, RASH, 01/13/17) Ciprofloxacin (Verified Allergy, Intermediate, hives, 01/13/17) Latex (Verified Allergy, Intermediate, hives, 01/13/17) Levofloxacin (Verified Allergy, Intermediate, rash, 01/13/17) Linezolid (Verified Allergy, Intermediate, rash, 01/13/17) Piperacillin (Verified Allergy, Intermediate, SEVERE RASH, HIVES, 01/13/17) Tazobactam (Verified Allergy, Intermediate, SEVERE RASH, HIVES, 01/13/17) Vancomycin (Verified Allergy, Intermediate, rash, 01/13/17) Tobramycin (Verified Allergy, Mild, MILD RASH ON ARM, RED FACE, 01/13/17) IMPROVED AFTER BENADRYL, TAKING REST OF DOSE Amikacin (Verified Allergy, Unknown, PER DR ROBINS,RXN WAS TO ZOSYN NOT AMKrash;hives, 01/13/17) Sulfamethoxazole w/Trimethoprim (Verified Allergy, Unknown, Hives, 01/13/17 ) Can be pretreated with 10mg Zytrec 45 min prior to admin Physical Exam Vital Signs Date Time Temp Pulse Resp B/P (MAP) Pulse Ox O2 Delivery O2 Flow Rate FiO2 02/03/17 16:09 79 02/03/17 15:49 81 105/63 97 02/03/17 13:49 36.6 99 20 156/90 100 Room Air Physical Exam CONSTITUTIONAL/VITAL SIGNS: Reviewed / noted above. GENERAL: Drowsy, non-toxic in appearance. INTEGUMENTARY: Warm, dry, and [place]. HEAD: Normocephalic. EYES: without scleral icterus or trauma. ENT/OROPHARYNX: clear and moist. LYMPHADENOPATHY/NECK: Is supple without lymphadenopathy or meningismus. RESPIRATORY: Lungs clear and equal. CARDIOVASCULAR: Regular rate and rhythm. GI/ABDOMEN: Soft and nontender. No organomegaly or pulsatile mass. No rebound or guarding. Normal bowel sounds. EXTREMITIES: Bilateral BKA. Small wound on the left leg that is unchanged in appearance from baseline per mother. Warm and well perfused. BACK: No CVA tenderness. NEUROLOGICAL: Intact without focal deficits. PSYCHIATRIC: normal affect. MUSCULOSKELETAL: Normally developed with good muscle tone. Medical Decision & Procedures ER Provider Diagnostic Interpretation: Radiology results as stated below per my review and radiologist interpretation: HEAD WITHOUT CONTRAST (CT) CLINICAL HISTORY: 31 years-old Female presenting with EVALUATE ALTERED MENTAL STATUS/WEAKNESS. TECHNIQUE: Multidetector CT imaging of the head was performed without the use of intravenous contrast. IV contrast: None. A dose lowering technique was used consistent with the principles of ALARA (as low as reasonably achievable). COMPARISON: 01/11/2017. CT DOSE (mGy.cm): The estimated cumulative dose is 614.27 mGy.cm. FINDINGS: Title Curative Specialist topogram: Unremarkable. The patient is dolichocephalic. A dianne hole is also noted in the right a subtle region. Right transverse frontal ventricular shunt catheter terminates in the region of the right foramen of [place], unchanged. Ventricular system decompressed. Persistent fullness at the foramen magnum. 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 Chronic encephalomalacia/atrophy of the paramedian occipital lobes, right greater than left, with associated ex vacuo dilatation of the subcortical horn of the right lateral ventricle. No mass effect or midline shift. No hemorrhage or acute territorial infarct. No extra-axial fluid collection. Paranasal sinuses and mastoid air cells clear. Calvarium intact. IMPRESSION: 1. Ventricular shunt catheter in place with appropriate ventricular decompression. No acute intracranial pathology. 2. Congenital anomalies as above. Electronically signed by: Chris Blanco M.D. 02/03/2017 3:52 PM Dictated Date/Time: 02/03/2017 3:46 PM CHEST ONE VIEW PORTABLE HISTORY: 31 years-old Female EVALUATE ALTERED MENTAL STATUS/WEAKNESS COMPARISON: Portable chest radiograph 11/17/2016 TECHNIQUE: Portable upright AP view of the chest FINDINGS: Ventriculoperitoneal shunt catheter is again seen. Right subclavian [id number] catheter is present with distal tip likely within the region of the right atrium. Cardiac silhouette is mildly enlarged. Lungs are hypoinflated with mild left hemidiaphragmatic elevation. No pneumothorax or large pleural effusion. Linear subsegmental bibasilar opacities suggest atelectasis. Patient obesity noted. Bones are grossly intact. IMPRESSION: 1. Linear subsegmental bibasilar opacities suggest atelectasis with persistent left hemidiaphragmatic elevation. 2. Hypoinflation. The above report was generated using voice recognition software. It may contain grammatical, syntax or spelling errors. Electronically signed by: Bob Martino M.D. 02/03/2017 3:23 PM Dictated Date/Time: 02/03/2017 3:22 PM Laboratory Results 02/03/17 15:00 Red Blood Count 4.18, Mean Corpuscular Volume 95.9, Mean Corpuscular Hemoglobin 29.9, Mean Corpuscular Hemoglobin Concent 31.2, Mean Platelet Volume 9.8, Neutrophils (%) (Auto) 61.2, Lymphocytes (%) (Auto) 25.4, Monocytes (%) (Auto) 7.0, Eosinophils (%) (Auto) 5.6, Basophils (%) (Auto) 0.7, Neutrophils # (Auto) 4.44, Lymphocytes # (Auto) 1.85, Monocytes # (Auto) 0.51, Eosinophils # (Auto) 0.41, Basophils # (Auto) 0.05 02/03/17 15:00 Test 02/03/17 15:00 02/03/17 16:20 White Blood Count 7.27 K/uL (4.8-10.8) Red Blood Count 4.18 M/uL (4.2-5.4) Hemoglobin 12.5 g/dL (12.0-16.0) Hematocrit 40.1 % (37-47) Mean Corpuscular Volume 95.9 fL (80-100) Mean Corpuscular Hemoglobin 29.9 pg (25-34) Mean Corpuscular Hemoglobin Concent 31.2 g/dl (32-36) Platelet Count 273 K/uL (130-400) Mean Platelet Volume 9.8 fL (7.4-10.4) Neutrophils (%) (Auto) 61.2 % Lymphocytes (%) (Auto) 25.4 % Monocytes (%) (Auto) 7.0 % Eosinophils (%) (Auto) 5.6 % Basophils (%) (Auto) 0.7 % Neutrophils # (Auto) 4.44 K/uL (1.4-6.5) Lymphocytes # (Auto) 1.85 K/uL (1.2-3.4) Monocytes # (Auto) 0.51 K/uL (0.11-0.59) Eosinophils # (Auto) 0.41 K/uL (0-0.5) Basophils # (Auto) 0.05 K/uL (0-0.2) RDW Standard Deviation 53.5 fL (36.4-46.3) RDW Coefficient of Variation 15.3 % (11.5-14.5) Immature Granulocyte % (Auto) 0.1 % Immature Granulocyte # (Auto) 0.01 K/uL (0.00-0.02) Prothrombin Time 13.3 SECONDS (9.0-12.0) Prothromb Time International Ratio 1.2 (0.9-1.1) Activated Partial Thromboplast Time 31.4 SECONDS (21.0-31.0) Partial Thromboplastin Ratio 1.2 Anion Gap 7.0 mmol/L (3-11) Est Creatinine Clear Calc Drug Dose 123.7 ml/min Estimated GFR () 144.4 Estimated GFR (Non- 124.6 BUN/Creatinine Ratio 11.0 (10-20) Calcium Level 8.8 mg/dl (8.5-10.1) Magnesium Level 2.4 mg/dl (1.8-2.4) Total Bilirubin 0.2 mg/dl (0.2-1) Direct Bilirubin < 0.1 mg/dl (0-0.2) Aspartate Amino Transf (AST/SGOT) 11 U/L (15-37) Alanine Aminotransferase (ALT/SGPT) 22 U/L (12-78) Alkaline Phosphatase 114 U/L (45-117) Total Creatine Kinase 15 U/L (26-192) Creatine Kinase MB < 0.5 ng/ml (0.5-3.6) Creatine Kinase MB Ratio (0-3.0) Troponin I < 0.015 ng/ml (0-0.045) Total Protein 6.9 gm/dl (6.4-8.2) Albumin 2.9 gm/dl (3.4-5.0) Lipase 82 U/L (73-393) Thyroid Stimulating Hormone (TSH) 6.760 uIu/ml (0.300-4.500) Urine Color YELLOW Urine Appearance CLEAR (CLEAR) Urine pH 6.5 (4.5-7.5) Urine Specific [place] 1.019 (1.000-1.030) Urine Protein NEG (NEG) Urine Glucose (UA) NEG (NEG) Urine Ketones NEG (NEG) Urine Occult Blood 2+ (NEG) Urine Nitrite POS (NEG) Urine Bilirubin NEG (NEG) Urine Urobilinogen NEG (NEG) Urine Leukocyte Esterase MODERATE (NEG) Urine WBC (Auto) 10-30 /hpf (0-5) Urine RBC (Auto) >30 /hpf (0-4) Urine Hyaline Casts (Auto) 1-5 /lpf (0-5) Urine Epithelial Cells (Auto) 10-20 /lpf (0-5) Urine Bacteria (Auto) NEG (NEG) Laboratory results as stated above per my review. Medications Administered Medications (Trade) Dose Ordered Sig/Brenna Route Start Time Stop Time Status Last Admin Dose Admin Sodium Chloride 1,000 ml @ 999 mls/hr Q1H1M STAT IV 02/03/17 14:37 02/03/17 15:37 DC 02/03/17 15:03 999 MLS/HR Ondansetron HCl (Zofran 8mg Iv) 8 mg NOW STAT IV 02/03/17 14:37 02/03/17 14:47 DC 02/03/17 15:03 8 MG Ketorolac Tromethamine (Toradol Inj) 30 mg NOW STAT IV 02/03/17 14:37 02/03/17 14:48 DC 02/03/17 15:04 30 MG ECG Indication: other (headache) Rate (beats per minute): 83 Rhythm: normal sinus Findings: no ectopy, other (no injury ) ED Course 1407: Previous medical records were reviewed. The patient was evaluated in room C4. A complete history and physical examination was performed. 1437: Toradol Inj 30mg IV, Zofran 8mg IV, Sodium Chloride 1000 ml @ 999 mls/hr IV. 1715: On reevaluation, the patient is feeling well. I discussed the results and findings with the patient. She verbalized agreement of the treatment plan. She was discharged home. Medical Decision Differential includes acute coronary syndrome, myocardial infarction, CVA, TIA, anemia, infection, pneumonia, UTI, pyelonephritis, poor nutrition, dehydration, electrolyte disturbance, hypoglycemia, shunt malfunction. This is a 31-year-old female who presents to the ED with a chief complaint of a headache. The patient has history of cerebral palsy. She has a HEALTH CARE SPECIALIST shunt and she states that her symptoms feel similar to that which she experiences when she has a HEALTH CARE SPECIALIST shunt malfunction. She is experiencing a headache for which she has tried tramadol and Tylenol. She also states that she is more sleepy and tired than usual, has nausea and her speech is a little slurred. The patient is currently on tobramycin for a UTI. Her physical exam reveals no acute distress. She appears to be somewhat drowsy. She has bilateral lower extremity BKA's and there is a small chronic wound in the left distal extremity. This is unchanged from baseline, per mom. Exam is otherwise unremarkable. A chest x-ray did not show acute disease. A CT scan of the brain did not show any evidence of acute disease, intracranial bleed or shunt malfunction. CBC is normal, complete metabolic panel was unremarkable, troponin is negative, urine reveals positive nitrite and negative bacteria. The patient is currently on tobramycin for UTI. The patient was treated IV Toradol, IV fluids and IV Zofran. She is felt to be stable for discharge and outpatient follow-up. Medication Reconcilliation Current Medication List: was personally reviewed by me Blood Pressure Screening Patient's blood pressure: Normal blood pressure Impression Primary Impression: Headache Additional Impressions: Drowsiness Nausea Scribe Attestation The scribe's documentation has been prepared under my direction and personally reviewed by me in its entirety. I confirm that the note above accurately reflects all work, treatment, procedures, and medical decision making performed by me. Departure Information Dispostion Home / Self-Care Referrals Laura Gonzalez P.A. (PCP) Forms HOME CARE DOCUMENTATION FORM, IMPORTANT VISIT INFORMATION Patient Instructions My [facility] Additional Instructions Your test results did not show any evidence of shunt malfunction. Follow-up with your doctor for further care and evaluation in 3-5 days if symptoms persist. Return to the emergency department for worsening or new symptoms or any concerns. You have been examined and treated today on an emergency basis only. This is not a substitute for, or an effort to provide, complete comprehensive medical care. It is impossible to recognize and treat all injuries or illnesses in a single emergency department visit. It is therefore important that you follow up closely with your doctor. Call as soon as possible for an appointment. Problem Qualifiers
[2017-02-03 17:38] VITALS: BP 105/75; PULSE 78; O2SAT 98
[2017-02-10] MEDS ORDERED: PRT/40 PO (16:40)
[2017-02-14] MEDS ORDERED: PRT/40 PO (15:35)
[2017-02-14] MEDS ORDERED: [UNRECOGNIZED DRUG - CODE] IV (15:35)
[2017-02-14] MEDS ORDERED: MTRG45 TOP (15:35)
[2017-02-14] MEDS ORDERED: XRL20 PO (15:35)
[2017-02-14] MEDS ORDERED: MGNO400 PO (16:29)
[2017-02-14] MEDS ORDERED: POTA10CA28 PO (16:29)
[2017-03-09] MEDS ORDERED: TOBRAMYCIN PO (12:59)
[2017-03-09] MEDS ORDERED: DOXYCYLINE PO (12:59)
[2017-03-15] MEDS ORDERED: CHOL200010 PO (13:04)
[2017-03-15] MEDS ORDERED: ADVIN50/60 INH (13:04)
[2017-03-15] MEDS ORDERED: NRT/25 PO (13:23)
[2017-03-15] MEDS ORDERED: WOUN1PAD EXT (13:52)
[2017-03-15] MEDS ORDERED: MGRSP NAE (13:52)
[2017-03-15] MEDS ORDERED: MECL1TAB42 PO (13:52)
[2017-03-15] MEDS ORDERED: VTMB12 PO (15:08)
[2017-03-15] MEDS ORDERED: LINA1CAP2 PO (16:40)
[2017-03-15] MEDS ORDERED: GABA1CAP4 PO (16:40)
[2017-03-15] MEDS ORDERED: HYOS1TAB PO (16:40)
== END 2017-02-03 18:05 | disposition home or self-care (01) ==
LOC: C.EDB 13:47 → C.EDC 18:05
DX: R51 Headache (principal); R40.0 Somnolence; R11.0 Nausea; G80.9 Cerebral palsy, unspecified; Z98.2 Presence of cerebrospinal fluid drainage device; G91.9 Hydrocephalus, unspecified; Z86.711 Personal history of pulmonary embolism; M86.9 Osteomyelitis, unspecified; F32.9 Major depressive disorder, single episode, unspecified; F41.9 Anxiety disorder, unspecified; J45.909 Unspecified asthma, uncomplicated; K21.9 Gastro-esophageal reflux disease without esophagitis; Z87.440 Personal history of urinary (tract) infections; K31.84 Gastroparesis; Z80.9 Family history of malignant neoplasm, unspecified; Z83.3 Family history of diabetes mellitus; Z83.6 Family history of other diseases of the respiratory system; Z79.01 Long term (current) use of anticoagulants; Z79.2 Long term (current) use of antibiotics; Z79.899 Other long term (current) drug therapy

== ENCOUNTER → 2017-02-07 | Outpatient (CLI) | payer BC, OTHER ==
[~2017-02-07] MED LIST changes: +ADVIN50/60 INH; +ALBU18002 INH; -BENZ100C84 PO; +CGN1X PO; +CHOL200010 PO; +CLON0.5T3 PO; +DOCU-105 PO; +DOXYCYLINE PO; +FERR325T PO; +GABA1CAP4 PO; +HYOS1TAB PO; +INDO1CAP34 PO; +LEVO50TA6 PO; +LINA1CAP2 PO; +LITH1TAB PO; +LITH600C PO; +MECL1TAB42 PO; +METR0.7527 TOP; +MGNO400 PO; +MGRSP NAE; +MISCCAP80 PO; +MTRCR45 TP; +MTRG45 TOP; +MULTTAB58 PO; +NORT75CA PO; +NRT/25 PO; +NYST100010 TOP; +ONDA4TAB10 SL; +PANT40TA PO; +POTA10CA28 PO; +PRT/40 PO; +RIVA1TAB4 PO; +RSP1 PO; +SENN8.6T13 PO; +SNG10 PO; +TOBRAMYCIN PO; +TOPI1CAP3 PO; +ULT50 PO; +VST25HP PO; +VTMB12 PO; +WOUN1PAD EXT; -XPNINS NEB; +XRL20 PO; +ZNT/150 PO; -[UNRECOGNIZED DRUG - CODE] IART; +[UNRECOGNIZED DRUG - CODE] IV; +[UNRECOGNIZED DRUG - CODE] IV; +[UNRECOGNIZED DRUG - CODE] PO
[2017-02-07 17:09] LABS: URINE APPEARANCE CLEAR (CLEAR); URINE BILIRUBIN NEG (NEG); URINE COLOR YELLOW; URINE EPITHELIAL CELL AUTO >30 /lpf (0-5); URINE NITRITE NEG (NEG); URINE SPECIFIC GRAVITY 1.013 (1.000-1.030); UROBILINOGEN NEG (NEG)
[2017-02-07 17:10] LABS: MANUAL MICROSCOPIC REQUIRED? NO; REVIEW REQ? YES
== END | disposition home or self-care (01) ==
LOC: C.LABBC 13:40
PROVIDERS: ATTEND Internal Medicine Infectious Disease
DX: N39.0 Urinary tract infection, site not specified (principal)

== ENCOUNTER 2017-02-10 17:02 | Inpatient (IN) | payer BC, OTHER ==
[~2017-02-10] VITALS: Ht 119.4 cm; Wt 118.6 kg
[~2017-02-10 17:02] MED LIST changes: -ADVIN50/60 INH; -ALBU18002 INH; -CGN1X PO; -CHOL200010 PO; -CLON0.5T3 PO; -DOCU-105 PO; -DOXYCYLINE PO; -FERR325T PO; -GABA1CAP4 PO; -HYOS1TAB PO; -INDO1CAP34 PO; -LEVO50TA6 PO; -LINA1CAP2 PO; -LITH1TAB PO; -LITH600C PO; -MECL1TAB42 PO; -METR0.7527 TOP; -MGNO400 PO; -MGRSP NAE; -MISCCAP80 PO; -MTRCR45 TP; -MTRG45 TOP; -MULTTAB58 PO; -NORT75CA PO; -NRT/25 PO; -NYST100010 TOP; -ONDA4TAB10 SL; -PANT40TA PO; -POTA10CA28 PO; -RIVA1TAB4 PO; -RSP1 PO; -SENN8.6T13 PO; -SNG10 PO; -TOBRAMYCIN PO; -TOPI1CAP3 PO; -ULT50 PO; -VST25HP PO; -VTMB12 PO; -WOUN1PAD EXT; -XRL20 PO; -ZNT/150 PO; -[UNRECOGNIZED DRUG - CODE] IV; -[UNRECOGNIZED DRUG - CODE] PO
[2017-02-10] MEDS ORDERED: ZNT/150 PO (17:28)
[2017-02-10 18:27] LABS: URINE APPEARANCE CLOUDY (CLEAR); URINE BILIRUBIN NEG (NEG); URINE COLOR YELLOW; URINE EPITHELIAL CELL AUTO >30 /lpf (0-5); URINE NITRITE POS (NEG); URINE SPECIFIC GRAVITY 1.006 (1.000-1.030); UROBILINOGEN NEG (NEG); ZZUR CULT IF INDIC CLEAN CATCH NO
[2017-02-10 18:28] LABS: MANUAL MICROSCOPIC REQUIRED? NO; REVIEW REQ? YES
[2017-02-10] MEDS ORDERED: XRL20 PO (18:34)
[2017-02-10] MEDS ORDERED: MECLIZINE HCL 25 MG TAB PO PRN (20:15)
[2017-02-10] MEDS ORDERED: DOCUSATE SODIUM 100 MG CAP PO PRN (20:15)
[2017-02-10 20:46] LABS: HEMATOCRIT 39.7 % (37-47); MEAN CELL VOLUME 95.7 fL (80-100); MEAN CORPUSCULAR HEMOGLOBIN 29.9 pg (25-34); MEAN CORPUSCULAR HGB CONC 31.2 g/dl (32-36); MEAN PLATELET VOLUME 9.7 fL (7.4-10.4); PLATELET COUNT 264 K/uL (130-400); RED BLOOD COUNT 4.15 M/uL (4.2-5.4); WHITE BLOOD COUNT 9.99 K/uL (4.8-10.8)
[2017-02-10 21:07] LABS: ALT/SGPT 25 U/L (12-78); AST/SGOT 12 U/L (15-37); BLOOD UREA NITROGEN 5 mg/dl (7-18); BUN/CREATININE RATIO 7.5 (10-20); CALCIUM 8.8 mg/dl (8.5-10.1); CARBON DIOXIDE 24 mmol/L (21-32); CHLORIDE 110 mmol/L (98-107); CREATININE 0.67 mg/dl (0.60-1.20); GLUCOSE 111 mg/dl (70-99); POTASSIUM 3.3 mmol/L (3.5-5.1); SODIUM 141 mmol/L (136-145)
[2017-02-10 21:09] LABS: ALKALINE PHOSPHATASE 124 U/L (45-117)
[2017-02-10] MEDS ORDERED: IMIPENEM/CILASTATIN CONSULT ACTIVE PRN (21:15)
--- NOTE | 2017-02-10 21:17 | History and Physical ---
History & Physical Date & Time of Service: Feb 10, 2017 at 20:29 Chief Complaint: Uti,Needs Iv Antibiotics Primary Care Physician: Laura GonzalezPMikeAMike History of Present Illness Source: patient, family, parent This is 31 yo F w/ hx of Spina Bifida w/ [employer] Shunt, hx Osteomyelitis brooklynn LE s/p Bilateral below the knee amputations, Neurogenic bladder with chronic suprapubic catheter complicated by recurrent UTI . She is currently being followed by Dr. Sauceda in ID. For the last month patient has experienced intermittent bladder pain and was was being treated for UTI most recently with Tobramycin x 5 days preceded by 7 day course of an abx patient does not recall. Patient was seen in ED 02/03 and was and UA was consistent with UTI. No change was made to anc and her last dose of Tobramycin was on 02/04. Urine culture came back today showing STENOTROPHOMONAS MALTOPHILIA . Patient was advised by ID to come into ED for IV abx treatment . Currently patient reports ongoing bladder pain and reports hematuria with clots a few days ago from catheter that has since resolved. SHe denies fever, chills. She reports longstanding nausea without vomiting. She denies abdominal pain, flank pain. Patient is afebrile, VSS, Initial CBC on arrival was without leukocytosis. Patient has LLE wound followed by wound care. Past Medical/Surgical History Medical Problems: (1) Anxiety Status: Chronic (2) Asthma Status: Chronic (3) Bipolar 1 disorder Status: Chronic (4) Depression Status: Chronic (5) Gastroparesis Status: Chronic (6) GERD (gastroesophageal reflux disease) Status: Chronic (7) Hydrocephalus Status: Chronic (8) MRSA (methicillin resistant Staphylococcus aureus) Status: Resolved (9) Osteomyelitis Status: Resolved (10) Spina bifida Permanent Comment: Status: Chronic Family History Cancer Diabetes mellitus Lung disease Social History Smoking Status: Never Smoker Smokeless Tobacco Use: No Drug Use: none Marital Status: single Housing status: lives with family Occupational Status: disabled Immunizations History of Influenza Vaccine: Unknown History of Tetanus Vaccine?: Unknown History of Pneumococcal: Unknown History of Hepatitis B Vaccine: Unknown 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 Type of MDRO: MRSA Allergies Coded Allergies: Adhesives (Verified Allergy, Intermediate, TAPE- HIVES, 01/13/17) Ceftriaxone (Verified Allergy, Intermediate, rash, 01/13/17) Chlorhexidine (Verified Allergy, Intermediate, RASH, 01/13/17) Ciprofloxacin (Verified Allergy, Intermediate, hives, 01/13/17) Imipenem (Verified Allergy, Intermediate, PT REPORTS ITCHING, 02/11/17) Latex (Verified Allergy, Intermediate, hives, 01/13/17) Levofloxacin (Verified Allergy, Intermediate, rash, 01/13/17) Linezolid (Verified Allergy, Intermediate, rash, 01/13/17) Piperacillin (Verified Allergy, Intermediate, SEVERE RASH, HIVES, 01/13/17) Tazobactam (Verified Allergy, Intermediate, SEVERE RASH, HIVES, 01/13/17) Vancomycin (Verified Allergy, Intermediate, rash, 01/13/17) Tobramycin (Verified Allergy, Mild, MILD RASH ON ARM, RED FACE, 01/13/17) IMPROVED AFTER BENADRYL, TAKING REST OF DOSE Amikacin (Verified Allergy, Unknown, PER DR ROBINS,RXN WAS TO ZOSYN NOT AMKrash;hives, 01/13/17) Sulfamethoxazole w/Trimethoprim (Verified Allergy, Unknown, Hives, 01/13/17 ) Can be pretreated with 10mg Zytrec 45 min prior to admin Home Medications Scheduled Benztropine Mesylate (Benztropine Mesylate), 1 MG PO BID Cholecalciferol (Vitamin D), 2,000 INTER.UNIT PO DAILY Clonazepam (Klonopin), 0.5 MG PO BID Cyanocobalamin (Vitamin B-12), 500 MCG PO DAILY Ergotamine Tartrate (Ergomar), 2 MG PO 2XWK Ferrous Sulfate (Ferrous Sulfate), 325 MG PO BID Fluticasone Prop/Salmeterol (Advair Diskus 500/50 60 Dose), 1 PUFF INH BID Gabapentin (Gabapentin), 300 MG PO TID Hydroxyzine HCl (Hydroxyzine Pamoate), 50 MG PO HS Hyoscyamine Sulfate (Levsin), 0.125 MG PO TID Levothyroxine Sodium (Levothyroxine Sodium), 50 MCG PO DAILY Linaclotide (Linzess), 290 MCG PO QAM [place] Carbonate ([place] Carbonate), 600 MG PO QPM [place] Carbonate Er (Lithobid Ext Rel), 450 MG PO QAM Montelukast Sod (Montelukast Sodium), 10 MG PO HS Multiple Vitamin (Multivitamin), 1 TAB PO DAILY Nortriptyline Hcl (Pamelor), 75 MG PO HS Nortriptyline Hcl (Pamelor), 25 MG PO HS Nystatin (Topical) (Nystop), 1 APPLN TOP UD Pantoprazole (Pantoprazole Sodium), 40 MG PO QAM Probiotic Product (Probiotic), 1 CAP PO DAILY Ranitidine Hcl (Zantac), 150 MG PO HS Risperidone (Risperidone), 1 MG PO BID Rivaroxaban (Xarelto), 20 MG PO DAILY Sennosides (Senna Lax), 8.6 MG PO DAILY Topiramate (Trokendi Xr), 100 MG PO BID Wound Dressings (Hydrofera Blue Foam Dress), 1 EA EXT UD Scheduled PRN Albuterol Sulfate (Proair Respiclick), 2 PUFFS INH Q4-6HRS PRN for SOB/Wheezing Dihydroergotamine Mesylate (Migranal), 1 SPRAY EDIE UD PRN for Migraine Docusate Sodium (Dulcolax Stool Softener), 100 MG PO BID PRN for Constipation Indomethacin (Indomethacin), 25 MG PO 2XWK PRN for Headache Meclizine Hcl (Meclizine Hcl), 25 MG PO TID PRN for Dizziness or Vertigo Ondasetron Odt (Zofran Odt), 4 MG SL Q8 PRN for Nausea Tramadol HCl (Tramadol HCl), 50 MG PO Q4H PRN for Pain Review of Systems Constitutional: No fever, No chills Respiratory: No cough, No shortness of breath Cardiovascular: No chest pain, No edema, No palpitations Abdomen: + nausea, No pain, No vomiting, No diarrhea Genitourinary - Female: + dysuria, + hematuria (resolved), + problem reported ( suprapubic catheter(chronic)) Neurologic: + problem reported (Headache) Hematologic / Lymphatic: + clotting problems (Hx of PE,on xarelto) Integumentary: No rash, No itch Physical Exam Vital Signs Date Time Temp Pulse Resp B/P (MAP) Pulse Ox O2 Delivery O2 Flow Rate FiO2 02/10/17 19:04 98 18 128/94 97 Room Air 02/10/17 17:04 36.5 89 22 98 Room Air General Appearance: WD/WN, no apparent distress, + obese Head: normocephalic, atraumatic, + pertinent finding ([employer] shunt in place) Eyes: normal inspection, PERRL Neck: supple, no adenopathy, no carotid bruits Respiratory/Chest: chest non-tender, lungs clear, normal breath sounds Cardiovascular: regular rate, rhythm, no edema, no murmur Abdomen/GI: normal bowel sounds, non tender, soft Back: normal inspection, no CVA tenderness Extremities/Musculoskelatal: normal inspection (s/p Brooklynn btk amputation, LLE wound) Neurologic/Psych: alert, normal mood/affect, oriented x 3 Skin: normal color, warm/dry Diagnostics Laboratory Results Results Past 24 Hours Test 02/10/17 18:14 02/10/17 19:25 Range/Units Urine Color YELLOW Urine Appearance CLOUDY CLEAR Urine pH 7.0 4.5-7.5 Urine Specific [place] 1.006 1.000-1.030 Urine Protein NEG NEG Urine Glucose (UA) NEG NEG Urine Ketones NEG NEG Urine Occult Blood NEG NEG Urine Nitrite POS NEG Urine Bilirubin NEG NEG Urine Urobilinogen NEG NEG Urine Leukocyte Esterase MODERATE NEG Urine WBC (Auto) 5-10 0-5 /hpf Urine RBC (Auto) 0-4 0-4 /hpf Urine Hyaline Casts (Auto) 1-5 0-5 /lpf Urine Epithelial Cells (Auto) >30 0-5 /lpf Urine Bacteria (Auto) NEG NEG Urine Renal Epithelial Cells 10-20 0-5 /lpf Urine Test NEG NEG Diagnostic Radiology 31 yo F w/ hx of Spina Bifida w/ [employer] Shunt, hx Osteomyelitis brooklynn LE s/p Bilateral below the knee amputations, Neurogenic bladder with chronic suprapubic catheter complicated by recurrent UTI presenting with Urine cx positive for STENOTROPHOMONAS MALTOPHILIA Recurrent UTI - chronic suprapubic catheter likely contributor - Urine cx positive for STENOTROPHOMONAS MALTOPHILIA - Case discussed with Dr. Sauceda. - Starting Tigecycline 100 mg IV loading dose, 50 mg IV q12 Hx PE,/DVT Prophylaxis - Continue Xarelto Asthma -cont Singulair Hypothyroidism -cont Synthroid Nausea -prn zofran -continue Antivert FRIED -PRN Tylenol Full code Impression Assessment and Plan Attending Addendum: I have physically seen and examined this patient, have directed the resident's medical activities, and agree with the H&P as noted above with the following exceptions as noted. The patient is awake, and alert, lying in bed and in no acute distress. HEENT--PERRL, EOMI, mucous membranes and oropharynx dry. Neck--supple, no JVD or bruits, thyroid normal, trachea midline, no adenopathy. Heart--normal S1 and S2, no extra beats, no murmurs, rubs or gallops. Lungs--clear bilaterally with good air movement, no respiratory distress, no accessory muscle use. Abdomen--normal bowel sounds and soft, nontender and nondistended, no hernias or masses, no organomegaly. Extremities--no cyanosis, clubbing or edema. There are good distal pulses b/l. Dermatologic--normal skin turgor, normal color, warm and dry, no abnormal lymph nodes, no rash. Neurologic--cranial nerves II through XII grossly intact, motor and sensory examination normal. Rheumatologic--bilateral BKA. Psychiatric--normal affect. Assessment and Plan: Neurogenic bladder/Recurrent UTI history/chronic suprapubic catheter/ Stenotrophomonas maltophilia/referred by infectious disease Dr. Sauceda for IV antibiotics-- Tigecycline 100 mg IV now, then 50 mg IV every [address] Sauceda. Spina bifida with [employer] shunt/bipolar disorder-- Continue usual medications of: Benztropine, clonazepam, gabapentin, hydroxyzine, Levsin, Linzess, lithium, nortriptyline, risperidone, topiramate, Xarelto. GERD--continue pantoprazole and ranitidine. Hypothyroidism--continue levothyroxine sodium. Asthma--continue Advair discus, montelukast sodium. Level of Care Med/Surg Advanced Directives Existing Advance Directive: No Existing Living Will: No Existing Power of Abrasive Grinder: No Resuscitation Status FULL RESUSCITATION VTE Prophylaxis VTE Risk Assessment Done? Y/N: Yes Risk Level: High Given or contraindicated: Other Anticoagulation (already on Xarelto) Note Total Time: Critical Care 30 - 74 minutes
[2017-02-10 21:28] LABS: BASO % 0.3 %; BASO ABS # 0.03 K/uL (0-0.2); COMPLETE YES; IG% 0.3 %; LYMPH % 22.1 %; LYMPH ABS # 2.21 K/uL (1.2-3.4); MONO % 7.3 %
[2017-02-10] MEDS ORDERED: IMIPENEM/CILASTATIN IV 500 MG in D5W 100ML IV SCH (22:00)
[2017-02-10 22:16] VITALS: BP 118/78; PULSE 93; TEMP 36.8; Ht 119.4 cm; Wt 118.6 kg
[2017-02-10 22:18] VITALS: O2SAT 97
[2017-02-10] MEDS: CLONAZEPAM 0.5 MG TAB PO SCH (22:33)
[2017-02-10] MEDS: FLUTICASONE/SALMETEROL (ADVAIR) 500/50 INH 14 PUFF INH SCH (22:33)
[2017-02-10] MEDS: BENZTROPINE MESYLATE 1 MG TAB PO SCH (22:34)
[2017-02-10] MEDS: RANITIDINE HCL 150 MG TAB PO SCH (22:34)
[2017-02-10] MEDS: HYOSCYAMINE SULFATE 0.125 MG SL TAB PO SCH (22:35)
[2017-02-10] MEDS: GABAPENTIN 300 MG CAP PO SCH (22:35)
[2017-02-10] MEDS: MONTELUKAST SOD 10 MG TAB PO SCH (22:35)
[2017-02-10] MEDS: NORTRIPTYLINE HCL 25 MG CAP PO SCH ×2 (22:35→22:36)
[2017-02-10] MEDS: RISPERIDONE 1 MG TAB PO SCH (22:37)
--- NOTE | 2017-02-10 23:09 | EMERGENCY ROOM VISIT NOTE ---
History First contact with patient: 17:54 Chief Complaint: URINARY SYMPTOMS Stated Complaint: UTI History of Present Illness The patient is a 31 year old female, history of spina bifida, neurogenic bladder and suprapubic catheter with history of recurrent UTIs, who presents to the Emergency Room with complaints of "bladder pain". The patient is currently under the care of Dr. Sauceda for her infections. The patient was recently treated with IV tobramycin. She was seen in the emergency department one week ago with similar symptoms. No additional treatment was provided given her concurrent tobramycin treatment. She had cultures on that visit, showing stenotrophomonas maltophilia. She had a repeat culture performed on 02/07 showing the same organism. Her sensitivity studies showed resistance to ceftazidime, and susceptibility to levofloxacin and trimethoprim/ sulfamethoxazole. The patient reports that she spoke with Dr. Sauceda today and was referred to the emergency department for admission and IV antibiotic treatment. The patient reports that she has an allergy to multiple antibiotics. She reports that she developed hives, blisters, rash another significant allergic condition with Levaquin. The patient reports that she has a lesser reaction to Bactrim, but has also had problems with Bactrim as well. The patient has not had any fevers or chills. She has not noticed any bloody drainage from her catheter. She rates her discomfort a 10 out of 10. Review of Systems 10 system review was performed and was negative except for pertinent positives and negatives as indicated in history of present illness Past Medical/Surgical History Medical Problems: (1) Allergic reaction caused by a drug (2) Anxiety (3) Asthma (4) Asthma exacerbation (5) Bipolar 1 disorder (6) Cellulitis (7) Depression (8) Gastroparesis (9) GERD (gastroesophageal reflux disease) (10) Hydrocephalus (11) Intractable headache (12) Migraines (13) MRSA (methicillin resistant Staphylococcus aureus) (14) Osteomyelitis (15) Pulmonary embolism (16) Shunt placement with revision x8 (17) Spina bifida (18) UTI (urinary tract infection) Surgical Problems: (1) S/P BKA (below knee amputation) bilateral Family History Cancer Diabetes mellitus Lung disease Social History Smoking Status: Never Smoker Smokeless Tobacco Use: No Alcohol Use: none Drug Use: none Marital Status: single Housing Status: lives with family Occupation Status: disabled Current/Historical Medications Scheduled Benztropine Mesylate (Benztropine Mesylate), 1 MG PO BID Cholecalciferol (Vitamin D), 2,000 INTER.UNIT PO DAILY Clonazepam (Klonopin), 0.5 MG PO BID Cyanocobalamin (Vitamin B-12), 500 MCG PO DAILY Ergotamine Tartrate (Ergomar), 2 MG PO 2XWK Ferrous Sulfate (Ferrous Sulfate), 325 MG PO BID Fluticasone Prop/Salmeterol (Advair Diskus 500/50 60 Dose), 1 PUFF INH BID Gabapentin (Gabapentin), 300 MG PO TID Hydroxyzine HCl (Hydroxyzine Pamoate), 50 MG PO HS Hyoscyamine Sulfate (Levsin), 0.125 MG PO TID Levothyroxine Sodium (Levothyroxine Sodium), 50 MCG PO DAILY Linaclotide (Linzess), 290 MCG PO QAM [place] Carbonate ([place] Carbonate), 600 MG PO QPM [place] Carbonate Er (Lithobid Ext Rel), 450 MG PO QAM Montelukast Sod (Montelukast Sodium), 10 MG PO HS Multiple Vitamin (Multivitamin), 1 TAB PO DAILY Nortriptyline Hcl (Pamelor), 75 MG PO HS Nortriptyline Hcl (Pamelor), 25 MG PO HS Nystatin (Topical) (Nystop), 1 APPLN TOP UD Pantoprazole (Pantoprazole Sodium), 40 MG PO QAM Probiotic Product (Probiotic), 1 CAP PO DAILY Ranitidine Hcl (Zantac), 150 MG PO HS Risperidone (Risperidone), 1 MG PO BID Rivaroxaban (Xarelto), 20 MG PO DAILY Sennosides (Senna Lax), 8.6 MG PO DAILY Topiramate (Trokendi Xr), 100 MG PO BID Wound Dressings (Hydrofera Blue Foam Dress), 1 EA EXT UD Scheduled PRN Albuterol Sulfate (Proair Respiclick), 2 PUFFS INH Q4-6HRS PRN for SOB/Wheezing Dihydroergotamine Mesylate (Migranal), 1 SPRAY EDIE UD PRN for Migraine Docusate Sodium (Dulcolax Stool Softener), 100 MG PO BID PRN for Constipation Indomethacin (Indomethacin), 25 MG PO 2XWK PRN for Headache Meclizine Hcl (Meclizine Hcl), 25 MG PO TID PRN for Dizziness or Vertigo Ondasetron Odt (Zofran Odt), 4 MG SL Q8 PRN for Nausea Tramadol HCl (Tramadol HCl), 50 MG PO Q4H PRN for Pain Physical Exam Vital Signs Date Time Temp Pulse Resp B/P (MAP) Pulse Ox O2 Delivery O2 Flow Rate FiO2 02/10/17 19:04 98 18 128/94 97 Room Air 02/10/17 17:04 36.5 89 22 98 Room Air Pain Rating (0-10): 9.0 Physical Exam CONSTITUTIONAL: Healthy and well nourished. Alert and oriented X 3 with positive affect. Patient does not appear acutely ill or toxic, nor does she appear in any acute distress or discomfort. HEENT: Normocephalic, atraumatic. Pupils equal, round and reactive. No scleral icterus or conjunctival injection. NECK: Full active range of motion without discomfort. RESPIRATORY: Clear to auscultation bilaterally with no wheezing, crackles, rhonchi or stridor. CARDIOVASCULAR: Regular rate and rhythm with no murmurs, rubs or gallops. GASTROINTESTINAL: Bowel sounds present in all quadrants. Soft and nontender to palpation without any obvious erythema or drainage around the suprapubic catheter site. MUSCULOSKELETAL: Examination shows bilateral lower extremity amputations. INTEGUMENTARY: No rash or other significant dermatologic conditions noted. NEUROLOGIC: No focal neurologic deficits noted. Medical Decision & Procedures Laboratory Results Test 02/10/17 18:14 Urine Color YELLOW Urine Appearance CLOUDY (CLEAR) Urine pH 7.0 (4.5-7.5) Urine Specific [place] 1.006 (1.000-1.030) Urine Protein NEG (NEG) Urine Glucose (UA) NEG (NEG) Urine Ketones NEG (NEG) Urine Occult Blood NEG (NEG) Urine Nitrite POS (NEG) Urine Bilirubin NEG (NEG) Urine Urobilinogen NEG (NEG) Urine Leukocyte Esterase MODERATE (NEG) Urine WBC (Auto) 5-10 /hpf (0-5) Urine RBC (Auto) 0-4 /hpf (0-4) Urine Hyaline Casts (Auto) 1-5 /lpf (0-5) Urine Epithelial Cells (Auto) >30 /lpf (0-5) Urine Bacteria (Auto) NEG (NEG) Urine Renal Epithelial Cells 10-20 /lpf (0-5) Urine Test NEG (NEG) Urinalysis results were reviewed, suggestive of infection. Cultures are pending. ED Course Patient history and physical exam were performed. Nurse's notes were reviewed. Vital signs were reviewed and were normal. The patient indicates that she was sent here by Dr. Sauceda for admission for IV antibiotics. I did review the patient's culture results and sensitivities. I asked the patient if she has taken oral Bactrim DS in the past. The patient reports that she reports for her to have IV treatment instead. Because she was sent here for admission for IV antibiotics, I then further discussed the case with Dr. Martinez, ED attending physician, and Dr. Galvan, [facility] hospitalist. I paged Dr. Sauceda to discuss his preference for IV antibiotic preference. Dr. Galvan actually spoke with him to discuss appropriate antibiotic treatment. Please see his dictation for further discussion of the selected antibiotic treatment. Labs were ordered and reviewed, with urinalysis results suggesting infection. Urine cultures are pending. The patient is afebrile and has no leukocytosis. Medical Decision Patient presents for treatment of recurrent UTI with history of multiple various culture results and resistances. Her case is also complicated with a history of multiple antibiotic allergies. The patient does not appear septic, is afebrile and has no leukocytosis. Her clinical exam is not suggestive of a surgical abdomen. Medication Reconcilliation Current Medication List: was personally reviewed by pr Blood Pressure Screening Patient's blood pressure: Normal blood pressure Impression Primary Impression: UTI (urinary tract infection) Departure Information Dispostion Admitted as an inpatient Condition GOOD Referrals Laura Gonzalez,P.A. (PCP) Forms HOME CARE DOCUMENTATION FORM, IMPORTANT VISIT INFORMATION Patient Instructions My [facility] Problem Qualifiers Primary Impression: UTI (urinary tract infection) Urinary tract infection type: catheter-associated UTI Indwelling urinary catheter type: cystostomy catheter Encounter type: initial encounter Qualified Codes: T83.510A - Infection and inflammatory reaction due to cystostomy catheter, initial encounter; N39.0 - Urinary tract infection, site not specified
[2017-02-11] VITALS: O2SAT 97
[2017-02-11] MEDS ORDERED: NURSING VERBAL MED ORDER ONE (00:30)
[2017-02-11] MEDS ORDERED: TIGEcycline INJ 100 MG in DEXTROSE 5% 100ML 100 ML IV STA (00:42)
[2017-02-11] MEDS ORDERED: NURSING VERBAL MED ORDER STA (04:26)
[2017-02-11] MEDS ORDERED: KETOROLAC TROMETHAMINE 30 MG/ML VIAL IV. STA (04:50)
[2017-02-11] MEDS: LEVOTHYROXINE 50 MCG TAB PO SCH (05:01)
[2017-02-11 07:56] VITALS: BP 108/71; PULSE 92; TEMP 36.9; O2SAT 94
[2017-02-11 08:00] VITALS: O2SAT 94
[2017-02-11] MEDS: CYANOCOBALAMIN 500 MCG TAB (VIT B-12) PO SCH (08:06)
[2017-02-11] MEDS: BENZTROPINE MESYLATE 1 MG TAB PO SCH ×2 (08:06→20:39)
[2017-02-11] MEDS: PANTOprazole SOD 40 MG TAB PO SCH (08:06)
[2017-02-11] MEDS: FLUTICASONE/SALMETEROL (ADVAIR) 500/50 INH 14 PUFF INH SCH ×2 (08:06→20:40)
[2017-02-11] MEDS: GABAPENTIN 300 MG CAP PO SCH ×3 (08:07→20:38)
[2017-02-11] MEDS: HYOSCYAMINE SULFATE 0.125 MG SL TAB PO SCH ×3 (08:07→20:38)
[2017-02-11] MEDS: RIVAROXABAN 20 MG TAB PO SCH (08:07)
[2017-02-11] MEDS: SENNA 8.6 MG TAB PO SCH (08:08)
[2017-02-11] MEDS: RISPERIDONE 1 MG TAB PO SCH ×2 (08:08→20:38)
[2017-02-11] MEDS: LITHIUM CARBONATE 450 MG TABCR PO SCH (08:08)
[2017-02-11] MEDS: CLONAZEPAM 0.5 MG TAB PO SCH ×2 (08:10→20:38)
[2017-02-11] MEDS: TIGEcycline INJ 50 MG in DEXTROSE 5% 100ML 100 ML IV SCH (12:25)
--- NOTE | 2017-02-11 14:43 | Progress Note ---
Subjective Date of Service: Feb 11, 2017. Subjective Pt evaluation today including: conversation w/ patient, physical exam, lab review, review of inpatient medication list Pain: mild pain PO Intake: adequate Voiding: arango catheter in place patient was tried on Primaxin last night, bad reaction d/w pharmacy, go with Tigecyline today patient feels like her shunt needs replaced/fixed by neurosurgery her neurosurgeon wants to wait one week until done with Xarelto currently she is feeling slow, speech slurred Problem List Medical Problems: (1) Acute pyelonephritis Status: Acute (2) Allergic reaction Status: Acute (3) Allergic reaction Status: Acute (4) Asthma with exacerbation Status: Acute (5) Chronic UTI (urinary tract infection) Status: Acute (6) Complicated urinary tract infection Status: Acute (7) Dehydration Status: Acute (8) Delusions Status: Acute (9) Drowsiness Status: Acute (10) Failure of outpatient treatment Status: Acute (11) Gabapentin overdose Status: Acute (12) Hypokalemia Status: Acute (13) Hypokalemia Status: Acute (14) Intractable headache Status: Acute (15) Laceration Status: Acute (16) Low back pain Status: Acute (17) Lower abdominal pain Status: Acute (18) Lower abdominal pain Status: Acute (19) Mood disorder Status: Acute (20) Mood disorder Status: Acute (21) Multiple drug resistant organism (MDRO) culture positive Status: Acute (22) Nausea Status: Acute (23) Nausea Status: Acute (24) Paranoia Status: Acute (25) Pelvic pain Status: Acute (26) Right flank pain Status: Acute (27) Right leg pain Status: Acute (28) Self-harming behavior Status: Acute (29) Shunt malfunction Status: Acute (30) Shunt malfunction Status: Acute (31) Suicidal ideation Status: Acute (32) Suicidal ideation Status: Acute (33) Suprapubic pain Status: Acute (34) Urinary tract infection Status: Acute (35) Urinary tract infection Status: Acute (36) Urinary tract infection Status: Acute (37) UTI (urinary tract infection) Status: Acute (38) UTI (urinary tract infection) Status: Acute (39) Weakness Status: Acute Review of Systems Constitutional: + weakness, + fatigue Musculoskeletal: + joint pain Neurologic: + weakness All Other Systems: Reviewed and Negative Medications Current Inpatient Medications Medications (Trade) Dose Ordered Sig/Brenna Route Start Time Stop Time Status Last Admin Dose Admin Ondansetron HCl (Zofran Inj) 4 mg Q6H PRN IV 02/10/17 20:15 03/12/17 20:14 Benztropine Mesylate (Cogentin Tab) 1 mg BID PO 02/10/17 21:00 03/12/17 20:59 02/11/17 08:06 1 MG Clonazepam (Klonopin Tab) 0.5 mg BID PO 02/10/17 21:00 03/12/17 20:59 02/11/17 08:10 0.5 MG Cyanocobalamin (Vitamin B-12 Tab) 500 mcg DAILY PO 02/11/17 09:00 03/13/17 08:59 02/11/17 08:06 500 MCG Docusate Sodium (coLACE CAP) 100 mg BID PRN PO 02/10/17 20:15 03/12/17 20:14 Salmeterol Xinafoate/ Fluticasone (Advair Diskus 500/50 Inh) 1 puff BID INH 02/10/17 21:00 03/12/17 20:59 02/11/17 08:06 1 PUFF Gabapentin (Neurontin Cap) 300 mg TID PO 02/10/17 21:00 03/12/17 20:59 02/11/17 12:36 300 MG Hyoscyamine Sulfate (Levsin Tab) 0.125 mg TID PO 02/10/17 21:00 03/12/17 20:59 02/11/17 12:36 0.125 MG Levothyroxine Sodium (Synthroid Tab) 50 mcg DAILYBB PO 02/11/17 06:30 03/13/17 06:59 02/11/17 05:01 50 MCG [employer] Carbonate (Eskalith Cr Tab) 450 mg QAM PO 02/11/17 09:00 03/13/17 08:59 02/11/17 08:08 450 MG Meclizine HCl (Antivert Tab) 25 mg TID PRN PO 02/10/17 20:15 03/12/17 20:14 Montelukast Sodium (Singulair Tab) 10 mg HS PO 02/10/17 21:00 03/12/17 20:59 02/10/17 22:35 10 MG Nortriptyline HCl (Pamelor Cap) 25 mg HS PO 02/10/17 21:00 03/12/17 20:59 02/10/17 22:35 25 MG Nortriptyline HCl (Pamelor Cap) 75 mg HS PO 02/10/17 21:00 03/12/17 20:59 02/10/17 22:36 75 MG Pantoprazole Sodium (Protonix Tab) 40 mg QAM PO 02/11/17 09:00 03/13/17 08:59 02/11/17 08:06 40 MG Ranitidine HCl (zANTac TAB) 150 mg HS PO 02/10/17 21:00 03/12/17 20:59 02/10/17 22:34 150 MG Risperidone (Risperdal Tab) 1 mg BID PO 02/10/17 21:00 03/12/17 20:59 02/11/17 08:08 1 MG Rivaroxaban (Xarelto Tab) 20 mg DAILY PO 02/11/17 09:00 03/13/17 08:59 02/11/17 08:07 20 MG Senna (Senokot Tab) 8.6 mg DAILY PO 02/11/17 09:00 03/13/17 08:59 Heparin Sodium (Porcine) (Heparin 100 Unit/ml 5ml Flush) 5 ml PRN PRN IV 02/10/17 22:45 03/12/17 22:44 02/11/17 12:36 5 ML Tigecycline 50 mg/ Dextrose 105 ml @ 200 mls/hr Q12H IV 02/11/17 12:00 02/21/17 11:59 02/11/17 12:25 200 MLS/HR Objective Vital Signs Date Time Temp Pulse Resp B/P (MAP) Pulse Ox O2 Delivery O2 Flow Rate FiO2 02/11/17 08:00 94 Room Air 02/11/17 07:56 36.9 92 18 108/71 (83) 94 Room Air 02/11/17 00:00 97 Room Air 02/10/17 22:18 97 Room Air 02/10/17 22:16 36.8 93 16 118/78 02/10/17 21:15 90 18 127/84 98 02/10/17 21:05 90 18 127/84 98 Room Air 02/10/17 19:04 98 18 128/94 97 Room Air 02/10/17 17:04 36.5 89 22 98 Room Air Physical Exam General Appearance: no apparent distress, + obese Eyes: normal inspection, EOMI, sclerae normal ENT: normal ENT inspection, hearing grossly normal, pharynx normal Neck: supple, no adenopathy, no JVD, trachea midline Respiratory/Chest: chest non-tender, lungs clear, normal breath sounds, no respiratory distress, no accessory muscle use Cardiovascular: regular rate, rhythm, no edema, no gallop, no JVD, no murmur Abdomen: normal bowel sounds, non tender, soft, no organomegaly Neurologic/Psychiatric: 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 shortage 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-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 nml as tested, alert, oriented x 3, + motor weakness, + depressed affect Skin: normal color, warm/dry, no rash Laboratory Results Last 24 Hours Test 02/10/17 18:14 02/10/17 20:30 Urine Color YELLOW Urine Appearance CLOUDY Urine pH 7.0 Urine Specific [place] 1.006 Urine Protein NEG Urine Glucose (UA) NEG Urine Ketones NEG Urine Occult Blood NEG Urine Nitrite POS Urine Bilirubin NEG Urine Urobilinogen NEG Urine Leukocyte Esterase MODERATE Urine WBC (Auto) 5-10 /hpf Urine RBC (Auto) 0-4 /hpf Urine Hyaline Casts (Auto) 1-5 /lpf Urine Epithelial Cells (Auto) >30 /lpf Urine Bacteria (Auto) NEG Urine Renal Epithelial Cells 10-20 /lpf Urine Test NEG White Blood Count 9.99 K/uL Red Blood Count 4.15 M/uL Hemoglobin 12.4 g/dL Hematocrit 39.7 % Mean Corpuscular Volume 95.7 fL Mean Corpuscular Hemoglobin 29.9 pg Mean Corpuscular Hemoglobin Concent 31.2 g/dl Platelet Count 264 K/uL Mean Platelet Volume 9.7 fL Neutrophils (%) (Auto) 66.0 % Lymphocytes (%) (Auto) 22.1 % Monocytes (%) (Auto) 7.3 % Eosinophils (%) (Auto) 4.0 % Basophils (%) (Auto) 0.3 % Neutrophils # (Auto) 6.59 K/uL Lymphocytes # (Auto) 2.21 K/uL Monocytes # (Auto) 0.73 K/uL Eosinophils # (Auto) 0.40 K/uL Basophils # (Auto) 0.03 K/uL RDW Standard Deviation 52.9 fL RDW Coefficient of Variation 15.1 % Immature Granulocyte % (Auto) 0.3 % Immature Granulocyte # (Auto) 0.03 K/uL Sodium Level 141 mmol/L Potassium Level 3.3 mmol/L Chloride Level 110 mmol/L Carbon Dioxide Level 24 mmol/L Anion Gap 7.0 mmol/L Blood Urea Nitrogen 5 mg/dl Creatinine 0.67 mg/dl Estimated GFR () 137.7 Estimated GFR (Non- 118.8 BUN/Creatinine Ratio 7.5 Random Glucose 111 mg/dl Calcium Level 8.8 mg/dl Total Bilirubin 0.2 mg/dl Direct Bilirubin < 0.1 mg/dl Aspartate Amino Transf (AST/SGOT) 12 U/L Alanine Aminotransferase (ALT/SGPT) 25 U/L Alkaline Phosphatase 124 U/L Total Protein 6.8 gm/dl Albumin 2.8 gm/dl Lipase 81 U/L Assessment and Plan 31 yo F w/ hx of Spina Bifida w/ DINING SERVICES DIRECTOR Shunt, hx Osteomyelitis brooklynn LE s/p Bilateral below the knee amputations, Neurogenic bladder with chronic suprapubic catheter complicated by recurrent UTI presenting with Urine cx positive for STENOTROPHOMONAS MALTOPHILIA Recurrent UTI secondary to chronic suprapubic catheter - Urine cx positive for STENOTROPHOMONAS MALTOPHILIA - Tigecycline 100 mg IV loading dose, 50 mg IV q12 - Dr. Sauceda following, will give final recommendations Hx PE,/DVT Prophylaxis - Continue Xarelto, done with treatment on Monday Spina bifida: patient feels DINING SERVICES DIRECTOR shunt needs corrected, replaced - follows with neurosurgeon at [place] - they will see her one week after Xarelto stopped Asthma -cont Singulair Hypothyroidism -cont Synthroid Nausea -prn zofran -continue Antivert FRIED -PRN Tylenol Full code
[2017-02-11] MEDS: MoRPHine SULFATE 2 MG/ML CARP IV PRN ×2 (15:54→21:45)
[2017-02-11 16:03] VITALS: BP 138/76; PULSE 96; TEMP 36.8; O2SAT 95
[2017-02-11] MEDS ORDERED: LITHIUM CARBONATE 300 MG TAB PO ONE (17:00)
[2017-02-11] MEDS: ONDANSETRON INJ 2 MG/ML 2 ML VIAL IV PRN (19:06)
[2017-02-11] MEDS: MONTELUKAST SOD 10 MG TAB PO SCH (20:39)
[2017-02-11] MEDS: RANITIDINE HCL 150 MG TAB PO SCH (20:39)
[2017-02-11] MEDS: NORTRIPTYLINE HCL 25 MG CAP PO SCH ×2 (20:40)
[2017-02-11 23:33] VITALS: BP 113/71; PULSE 90; TEMP 36.4; O2SAT 94
[2017-02-12] MEDS: TIGEcycline INJ 50 MG in DEXTROSE 5% 100ML 100 ML IV SCH ×3 (00:18→23:41)
[2017-02-12] MEDS: LEVOTHYROXINE 50 MCG TAB PO SCH (05:16)
[2017-02-12] MEDS: ONDANSETRON INJ 2 MG/ML 2 ML VIAL IV PRN ×2 (05:24→18:05)
[2017-02-12] MEDS: MoRPHine SULFATE 2 MG/ML CARP IV PRN ×4 (05:25→20:00)
[2017-02-12 07:38] VITALS: BP 100/66; PULSE 77; TEMP 36.5; O2SAT 95
[2017-02-12 08:00] VITALS: O2SAT 94
[2017-02-12] MEDS: FLUTICASONE/SALMETEROL (ADVAIR) 500/50 INH 14 PUFF INH SCH ×2 (08:51→19:59)
[2017-02-12] MEDS: PANTOprazole SOD 40 MG TAB PO SCH (08:52)
[2017-02-12] MEDS: RIVAROXABAN 20 MG TAB PO SCH (08:52)
[2017-02-12] MEDS: GABAPENTIN 300 MG CAP PO SCH ×3 (08:52→19:59)
[2017-02-12] MEDS: CYANOCOBALAMIN 500 MCG TAB (VIT B-12) PO SCH (08:52)
[2017-02-12] MEDS: RISPERIDONE 1 MG TAB PO SCH ×2 (08:52→20:01)
[2017-02-12] MEDS: BENZTROPINE MESYLATE 1 MG TAB PO SCH ×2 (08:52→20:00)
[2017-02-12] MEDS: LITHIUM CARBONATE 450 MG TABCR PO SCH (08:52)
[2017-02-12] MEDS: HYOSCYAMINE SULFATE 0.125 MG SL TAB PO SCH ×3 (08:53→20:01)
[2017-02-12] MEDS: SENNA 8.6 MG TAB PO SCH (08:53)
[2017-02-12] MEDS: CLONAZEPAM 0.5 MG TAB PO SCH ×2 (08:56→19:59)
--- NOTE | 2017-02-12 14:14 | Progress Note ---
Subjective Date of Service: Feb 12, 2017. Subjective Pt evaluation today including: conversation w/ patient, physical exam, review of inpatient medication list Pain: mild headache PO Intake: adequate Voiding: arango catheter in place no issues overnight headache relieved with Morphine IV stable on antibiotics discussed Xarelto, will stop after tomorrow AM Problem List Medical Problems: (1) Acute pyelonephritis Status: Acute (2) Allergic reaction Status: Acute (3) Allergic reaction Status: Acute (4) Asthma with exacerbation Status: Acute (5) Chronic UTI (urinary tract infection) Status: Acute (6) Complicated urinary tract infection Status: Acute (7) Dehydration Status: Acute (8) Delusions Status: Acute (9) Drowsiness Status: Acute (10) Failure of outpatient treatment Status: Acute (11) Gabapentin overdose Status: Acute (12) Hypokalemia Status: Acute (13) Hypokalemia Status: Acute (14) Intractable headache Status: Acute (15) Laceration Status: Acute (16) Low back pain Status: Acute (17) Lower abdominal pain Status: Acute (18) Lower abdominal pain Status: Acute (19) Mood disorder Status: Acute (20) Mood disorder Status: Acute (21) Multiple drug resistant organism (MDRO) culture positive Status: Acute (22) Nausea Status: Acute (23) Nausea Status: Acute (24) Paranoia Status: Acute (25) Pelvic pain Status: Acute (26) Right flank pain Status: Acute (27) Right leg pain Status: Acute (28) Self-harming behavior Status: Acute (29) Shunt malfunction Status: Acute (30) Shunt malfunction Status: Acute (31) Suicidal ideation Status: Acute (32) Suicidal ideation Status: Acute (33) Suprapubic pain Status: Acute (34) Urinary tract infection Status: Acute (35) Urinary tract infection Status: Acute (36) Urinary tract infection Status: Acute (37) UTI (urinary tract infection) Status: Acute (38) UTI (urinary tract infection) Status: Acute (39) Weakness Status: Acute Review of Systems Constitutional: + weakness, + problem reported (headache) All Other Systems: Reviewed and Negative Medications Current Inpatient Medications Medications (Trade) Dose Ordered Sig/Brenna Route Start Time Stop Time Status Last Admin Dose Admin Ondansetron HCl (Zofran Inj) 4 mg Q6H PRN IV 02/10/17 20:15 03/12/17 20:14 02/12/17 05:24 4 MG Benztropine Mesylate (Cogentin Tab) 1 mg BID PO 02/10/17 21:00 03/12/17 20:59 02/12/17 08:52 1 MG Clonazepam (Klonopin Tab) 0.5 mg BID PO 02/10/17 21:00 03/12/17 20:59 02/12/17 08:56 0.5 MG Cyanocobalamin (Vitamin B-12 Tab) 500 mcg DAILY PO 02/11/17 09:00 03/13/17 08:59 02/12/17 08:52 500 MCG Docusate Sodium (coLACE CAP) 100 mg BID PRN PO 02/10/17 20:15 03/12/17 20:14 Salmeterol Xinafoate/ Fluticasone (Advair Diskus 500/50 Inh) 1 puff BID INH 02/10/17 21:00 03/12/17 20:59 02/12/17 08:51 1 PUFF Gabapentin (Neurontin Cap) 300 mg TID PO 02/10/17 21:00 03/12/17 20:59 02/12/17 12:49 300 MG Hyoscyamine Sulfate (Levsin Tab) 0.125 mg TID PO 02/10/17 21:00 03/12/17 20:59 02/12/17 12:49 0.125 MG Levothyroxine Sodium (Synthroid Tab) 50 mcg DAILYBB PO 02/11/17 06:30 03/13/17 06:59 02/12/17 05:16 50 MCG Adrian Carbonate (Eskalith Cr Tab) 450 mg QAM PO 02/11/17 09:00 03/13/17 08:59 02/12/17 08:52 450 MG Meclizine HCl (Antivert Tab) 25 mg TID PRN PO 02/10/17 20:15 03/12/17 20:14 Montelukast Sodium (Singulair Tab) 10 mg HS PO 02/10/17 21:00 03/12/17 20:59 02/11/17 20:39 10 MG Nortriptyline HCl (Pamelor Cap) 25 mg HS PO 02/10/17 21:00 03/12/17 20:59 02/11/17 20:40 25 MG Nortriptyline HCl (Pamelor Cap) 75 mg HS PO 02/10/17 21:00 03/12/17 20:59 02/11/17 20:40 75 MG Pantoprazole Sodium (Protonix Tab) 40 mg QAM PO 02/11/17 09:00 03/13/17 08:59 02/12/17 08:52 40 MG Ranitidine HCl (zANTac TAB) 150 mg HS PO 02/10/17 21:00 03/12/17 20:59 02/11/17 20:39 150 MG Risperidone (Risperdal Tab) 1 mg BID PO 02/10/17 21:00 03/12/17 20:59 02/12/17 08:52 1 MG Rivaroxaban (Xarelto Tab) 20 mg DAILY PO 02/11/17 09:00 02/13/17 10:00 02/12/17 08:52 20 MG Senna (Senokot Tab) 8.6 mg DAILY PO 02/11/17 09:00 03/13/17 08:59 Heparin Sodium (Porcine) (Heparin 100 Unit/ml 5ml Flush) 5 ml PRN PRN IV 02/10/17 22:45 03/12/17 22:44 02/12/17 12:48 5 ML Tigecycline 50 mg/ Dextrose 105 ml @ 200 mls/hr Q12H IV 02/11/17 12:00 02/21/17 11:59 02/12/17 11:53 200 MLS/HR Adrian Carbonate (Adrian Carbonate Tab) 600 mg DAILY@1700 PO 02/12/17 17:00 03/14/17 16:59 Morphine Sulfate (MoRPHine SULFATE INJ) 2 mg Q4 PRN IV 02/12/17 12:00 02/25/17 14:44 02/12/17 11:59 2 MG Objective Vital Signs Date Time Temp Pulse Resp B/P (MAP) Pulse Ox O2 Delivery O2 Flow Rate FiO2 02/12/17 08:00 94 Room Air 02/12/17 07:38 36.5 77 18 100/66 (77) 95 Room Air 02/12/17 00:00 Room Air 02/11/17 23:33 36.4 90 20 113/71 (85) 94 Room Air 02/11/17 16:03 36.8 96 18 138/76 (96) 95 Room Air 02/11/17 16:00 Room Air Physical Exam General Appearance: no apparent distress, + obese Eyes: normal inspection, EOMI, sclerae normal Neck: supple, no adenopathy, no JVD, trachea midline Respiratory/Chest: chest non-tender, lungs clear, normal breath sounds, no respiratory distress, no accessory muscle use Cardiovascular: regular rate, rhythm, no edema, no gallop, no JVD, no murmur Abdomen: normal bowel sounds, non tender, soft, no organomegaly Extremities: no pedal edema, no calf tenderness, pelvis stable Neurologic/Psychiatric: event sales manager II-XII nml as tested, no motor/sensory deficits, alert, normal mood/affect, oriented x 3 Skin: normal color, warm/dry, no rash Assessment and Plan 31 yo F w/ hx of Spina Bifida w/ TOOL CHECKER Shunt, hx Osteomyelitis brooklynn LE s/p Bilateral below the knee amputations, Neurogenic bladder with chronic suprapubic catheter complicated by recurrent UTI presenting with Urine cx positive for STENOTROPHOMONAS MALTOPHILIA Recurrent UTI secondary to chronic suprapubic catheter - Urine cx positive for STENOTROPHOMONAS MALTOPHILIA - Tigecycline 50 mg IV q12 - consult Dr. Sauceda for final recommendations Hx PE,/DVT Prophylaxis - Continue Xarelto, done with treatment on Monday, stop order placed for tomorrow Spina bifida: patient feels TOOL CHECKER shunt needs corrected, replaced - follows with neurosurgeon at [place] - they will see her one week after Xarelto stopped Asthma -cont Singulair Hypothyroidism -cont Synthroid Nausea -prn zofran -continue Antivert FRIED -PRN Tylenol Full code
[2017-02-12 15:59] VITALS: BP 123/81; PULSE 101; TEMP 36.5; O2SAT 98
[2017-02-12] MEDS: LITHIUM CARBONATE 300 MG TAB PO SCH (17:13)
[2017-02-12 18:42] VITALS: BP 120/82; PULSE 107; TEMP 36.8; O2SAT 99
[2017-02-12] MEDS: NORTRIPTYLINE HCL 25 MG CAP PO SCH ×2 (20:00→20:01)
[2017-02-12] MEDS: MONTELUKAST SOD 10 MG TAB PO SCH (20:00)
[2017-02-12] MEDS: RANITIDINE HCL 150 MG TAB PO SCH (20:01)
[2017-02-13] MEDS: MoRPHine SULFATE 2 MG/ML CARP IV PRN ×2 (00:34→04:59)
[2017-02-13 00:45] VITALS: BP 158/61; PULSE 69; TEMP 36.3; O2SAT 98
[2017-02-13 00:47] VITALS: BP 116/74; PULSE 97; TEMP 36.6; O2SAT 97
[2017-02-13 05:16] LABS: BUN/CREATININE RATIO 23.1 (10-20); CALCIUM 8.1 mg/dl (8.5-10.1); CREATININE 0.66 mg/dl (0.60-1.20); POTASSIUM 3.5 mmol/L (3.5-5.1)
[2017-02-13] MEDS: LEVOTHYROXINE 50 MCG TAB PO SCH (05:50)
[2017-02-13 07:50] VITALS: BP 107/70; PULSE 93; TEMP 36.7; O2SAT 98
[2017-02-13 08:00] VITALS: O2SAT 98
[2017-02-13] MEDS: BENZTROPINE MESYLATE 1 MG TAB PO SCH ×2 (08:15→21:14)
[2017-02-13] MEDS: CYANOCOBALAMIN 500 MCG TAB (VIT B-12) PO SCH (08:15)
[2017-02-13] MEDS: CLONAZEPAM 0.5 MG TAB PO SCH ×2 (08:15→21:09)
[2017-02-13] MEDS: PANTOprazole SOD 40 MG TAB PO SCH (08:16)
[2017-02-13] MEDS: HYOSCYAMINE SULFATE 0.125 MG SL TAB PO SCH ×3 (08:16→21:10)
[2017-02-13] MEDS: FLUTICASONE/SALMETEROL (ADVAIR) 500/50 INH 14 PUFF INH SCH ×2 (08:17→21:09)
[2017-02-13] MEDS: RISPERIDONE 1 MG TAB PO SCH ×2 (08:17→21:13)
[2017-02-13] MEDS: SENNA 8.6 MG TAB PO SCH ×2 (08:18→21:10)
[2017-02-13] MEDS: GABAPENTIN 300 MG CAP PO SCH ×3 (08:18→21:13)
[2017-02-13] MEDS: ONDANSETRON INJ 2 MG/ML 2 ML VIAL IV PRN ×2 (08:31→17:19)
--- NOTE | 2017-02-13 10:45 | Progress Note ---
Progress Note Date of Service Feb 13, 2017. Progress Note ID Consult Dictated #[id number] A/P: 1. UTI - stenotrophomonas 2. Multiple abx allergies -Agree with course of tigecycline due to multiple allergies, would give 7 days total -Ok for d/c when otherwise stable, could complete course as outpt -thank you
[2017-02-13] MEDS ORDERED: DIHYDROERGOTAMINE MESYLATE 1 MG/ML VIAL SQ ONE (12:30)
--- NOTE | 2017-02-13 12:42 | INFECT. DISEASE CONSULTATION ---
DATE OF CONSULTATION: 02/13/2017 REQUESTING PHYSICIAN: Dr. Vazquez. HISTORY OF PRESENT ILLNESS: This is a 31-year-old female with multiple admissions for urinary tract infection. She recently had an outpatient urine culture which grew Stenotrophomonas; however, she is allergic to both Levaquin and Bactrim and she was subsequently admitted to the hospital to undergo therapy with IV tetracycline. She was started on this upon admission and is tolerating this well. She has been afebrile since admission to the hospital. Her urinalysis had only 5-10 WBCs and no bacteria. Her white blood cell count has been within normal limits. She appears to be tolerating medications well. On my examination, she is resting comfortably; however, when I entered the room, she begins to cry out that she is in pain and is requesting additional pain medication. She does have a chronic indwelling Meade catheter that she states that her urine has been clear. She does have questions regarding her anticoagulation therapy. Otherwise, she offers no complaints. All remaining review of systems is reviewed and is unremarkable. PAST MEDICAL HISTORY: Significant for anxiety, asthma, bipolar disorder, depression, gastroparesis, GERD, hydrocephalus, osteomyelitis and spina bifida. PAST SURGICAL HISTORY: Significant for suprapubic catheter and bilateral foot amputations. FAMILY HISTORY: Noncontributory. SOCIAL HISTORY: Negative for tobacco use, alcohol use or drug use. ALLERGIES: SHE HAS MULTIPLE ALLERGIES INCLUDING CEFTRIAXONE, CHLORHEXIDINE, CIPRO, IMIPENEM, LATEX, LEVAQUIN, LINEZOLID, ZOSYN, TAZOBACTAM, VANCOMYCIN, TOBRAMYCIN, AMIKACIN AND BACTRIM. CURRENT MEDICATIONS: Include lithium, morphine, tetracycline, vitamin B12, Protonix, Senokot, Synthroid, subQ heparin, Cogentin, Klonopin, Advair, Neurontin, Levsin, Singulair, nortriptyline, Zantac, risperidone, Zofran, Colace, Antivert. PHYSICAL EXAMINATION: VITAL SIGNS: She is afebrile, pulse 93, respiratory rate is 20, blood pressure is 107/70, and oxygen saturation is 98% on room air. GENERAL: She is awake, alert and oriented x3. She is in no acute distress. HEENT: Mucous membranes are moist. Extraocular muscles are intact. HEART: Regular. LUNGS: Clear bilaterally. ABDOMEN: Soft, nontender, nondistended. There is a suprapubic catheter in place with yellow urine that is clear. There is no edema. SKIN: Without rash. LABORATORY STUDIES: CBC reveals a white blood cell count of 9.9, hemoglobin 12.5 and platelets are 264. Chemistry panel reveals sodium of 140, potassium 3.5, chloride 109, bicarbonate 26, BUN 15, creatinine 0.6, glucose 93. LFTs are within normal limits. Urinalysis on the 8th had 5-10 WBCs and no bacteria. There is no micro to review from this admission. There is no imaging to review from this admission. ASSESSMENT AND PLAN: Urinary tract infection with Stenotrophomonas and multiple allergies. She will be continued on tigecycline. This can be completed after a 7-day course. She does have a port in place and certainly her antibiotics could be transitioned to home if she is otherwise medically stable for discharge. Thank you for this consultation.
[2017-02-13] MEDS: LITHIUM CARBONATE 450 MG TABCR PO SCH (13:25)
[2017-02-13] MEDS: RIVAROXABAN 20 MG TAB PO SCH (13:25)
[2017-02-13] MEDS: TIGEcycline INJ 50 MG in DEXTROSE 5% 100ML 100 ML IV SCH (13:28)
[2017-02-13 16:55] VITALS: BP 132/82; PULSE 102; TEMP 36.4; O2SAT 100
[2017-02-13] MEDS: LITHIUM CARBONATE 300 MG TAB PO SCH (17:23)
[2017-02-13] MEDS ORDERED: ENOXAPARIN 40 MG/0.4 ML SYR SQ ONE (18:45)
--- NOTE | 2017-02-13 18:48 | Progress Note ---
Subjective Date of Service: Feb 13, 2017. Subjective Pt evaluation today including: conversation w/ patient, physical exam, chart review, lab review Pain: headache and buttock pain PO Intake: fair at best Voiding: arango catheter in place main complaint is that of headache which she thinks is due to her GLAZIER HELPER shunt takes ergotamine at home prn she has been receiving IV morphine here due to her headache and buttock pain, however she overall feels "ok" but very tired Problem List Medical Problems: (1) Acute pyelonephritis Status: Acute (2) Allergic reaction Status: Acute (3) Allergic reaction Status: Acute (4) Asthma with exacerbation Status: Acute (5) Chronic UTI (urinary tract infection) Status: Acute (6) Complicated urinary tract infection Status: Acute (7) Dehydration Status: Acute (8) Delusions Status: Acute (9) Drowsiness Status: Acute (10) Failure of outpatient treatment Status: Acute (11) Gabapentin overdose Status: Acute (12) Hypokalemia Status: Acute (13) Hypokalemia Status: Acute (14) Intractable headache Status: Acute (15) Laceration Status: Acute (16) Low back pain Status: Acute (17) Lower abdominal pain Status: Acute (18) Lower abdominal pain Status: Acute (19) Mood disorder Status: Acute (20) Mood disorder Status: Acute (21) Multiple drug resistant organism (MDRO) culture positive Status: Acute (22) Nausea Status: Acute (23) Nausea Status: Acute (24) Paranoia Status: Acute (25) Pelvic pain Status: Acute (26) Right flank pain Status: Acute (27) Right leg pain Status: Acute (28) Self-harming behavior Status: Acute (29) Shunt malfunction Status: Acute (30) Shunt malfunction Status: Acute (31) Suicidal ideation Status: Acute (32) Suicidal ideation Status: Acute (33) Suprapubic pain Status: Acute (34) Urinary tract infection Status: Acute (35) Urinary tract infection Status: Acute (36) Urinary tract infection Status: Acute (37) UTI (urinary tract infection) Status: Acute (38) UTI (urinary tract infection) Status: Acute (39) Weakness Status: Acute Review of Systems Constitutional: No fever, No chills Respiratory: No shortness of breath Cardiac: No chest pain Abdomen: No pain Neurologic: + weakness (legs) Objective Vital Signs Date Time Temp Pulse Resp B/P (MAP) Pulse Ox O2 Delivery O2 Flow Rate FiO2 02/13/17 16:55 36.4 102 18 132/82 (99) 100 Room Air 02/13/17 08:00 98 Room Air 02/13/17 07:50 36.7 93 20 107/70 (82) 98 Room Air 02/13/17 00:47 36.6 97 16 116/74 (88) 97 Room Air 02/13/17 00:45 36.3 69 18 158/61 (93) 98 Room Air 02/12/17 23:45 Room Air 02/12/17 18:42 36.8 107 19 120/82 (95) 99 Room Air Physical Exam General Appearance: no apparent distress, + obese, + pertinent finding (sleepy but able to carry on a conversation ) ENT: pharynx normal Neck: no JVD Respiratory/Chest: lungs clear, no respiratory distress, no accessory muscle use Cardiovascular: regular rate, rhythm, no gallop, no murmur Abdomen: normal bowel sounds, non tender, soft, no organomegaly Extremities: + pertinent finding (b/l BKA) Skin: + pertinent finding (ulceration of left BKA stump, clean - no significant drainage ) Comments: a-port, right upper chest - clean, intact, nontender Laboratory Results Last 24 Hours Test 02/13/17 04:27 D-Dimer 760 ug/L FEU Sodium Level 140 mmol/L Potassium Level 3.5 mmol/L Chloride Level 109 mmol/L Carbon Dioxide Level 26 mmol/L Anion Gap 5.0 mmol/L Blood Urea Nitrogen 15 mg/dl Creatinine 0.66 mg/dl Est Creatinine Clear Calc Drug Dose 112.8 ml/min Estimated GFR () 138.4 Estimated GFR (Non- 119.4 BUN/Creatinine Ratio 23.1 Random Glucose 93 mg/dl Calcium Level 8.1 mg/dl Assessment and Plan 31yo female with: 1. complicated UTI 2nd to stenotrophomonas maltophilia - has chronic suprapubic catheter due to neurogenic bladder. Has had frequent UTIs with MDR pathogens. Numerous antibiotic allergies. Day #3 of tigecycline. Plan 7-day course of such. Appreciate ID consult. 2. headache - migraine - DHE SQ x 1 now. 3. spina bifida with GLAZIER HELPER shunt and paraplegic status - noted. 4. lethargy - due to morphine? other? stop IV morphine tramadol prn pain follow mental status 5. at risk of LIZBETH due to obesity and snoring - overnight oximetry study. 6. b/l BKA due to previous osteomyelitis - noted. 7. h/o DVT/PE - previously on xarelto; this was held starting today due to ? of GLAZIER HELPER shunt revision next week in [place]. Lovenox 40mg daily while off xarelto. 8. asthma - no exacerbation at this time. 9. hypothyroidism - cont synthroid spoke with SW - IV antibiotics to be secured for home usage anticipate d/c home tomorrow Continued [facility] stay due to: multiple IV medications needed, other (migraine headache) Discharge planning: home with home health
[2017-02-13] MEDS: MONTELUKAST SOD 10 MG TAB PO SCH (21:11)
[2017-02-13] MEDS: RANITIDINE HCL 150 MG TAB PO SCH (21:11)
[2017-02-13] MEDS: NORTRIPTYLINE HCL 25 MG CAP PO SCH ×2 (21:14→21:15)
[2017-02-13] MEDS: TRAMADOL/ACETAMINOPHEN 37.5/325MG TAB PO PRN (23:56)
[2017-02-14] VITALS: BP 111/69; PULSE 94; TEMP 36.8; O2SAT 95
[2017-02-14] MEDS: ONDANSETRON INJ 2 MG/ML 2 ML VIAL IV PRN
[2017-02-14] MEDS: TIGEcycline INJ 50 MG in DEXTROSE 5% 100ML 100 ML IV SCH ×2 (00:02→11:24)
[2017-02-14 05:49] VITALS: O2SAT 95
[2017-02-14] MEDS: LEVOTHYROXINE 50 MCG TAB PO SCH (05:53)
[2017-02-14 07:46] VITALS: BP 133/80; PULSE 83; TEMP 36.8; O2SAT 95
[2017-02-14 08:00] VITALS: O2SAT 95
[2017-02-14] MEDS: TRAMADOL/ACETAMINOPHEN 37.5/325MG TAB PO PRN (08:03)
[2017-02-14] MEDS: CLONAZEPAM 0.5 MG TAB PO SCH (08:03)
[2017-02-14] MEDS: RISPERIDONE 1 MG TAB PO SCH (08:04)
[2017-02-14] MEDS: GABAPENTIN 300 MG CAP PO SCH ×2 (08:04→14:19)
[2017-02-14] MEDS: CYANOCOBALAMIN 500 MCG TAB (VIT B-12) PO SCH (08:04)
[2017-02-14] MEDS: BENZTROPINE MESYLATE 1 MG TAB PO SCH (08:04)
[2017-02-14] MEDS: LITHIUM CARBONATE 450 MG TABCR PO SCH (08:04)
[2017-02-14] MEDS: PANTOprazole SOD 40 MG TAB PO SCH (08:04)
[2017-02-14] MEDS: SENNA 8.6 MG TAB PO SCH (08:05)
[2017-02-14] MEDS: HYOSCYAMINE SULFATE 0.125 MG SL TAB PO SCH ×2 (08:05→14:19)
[2017-02-14] MEDS: FLUTICASONE/SALMETEROL (ADVAIR) 500/50 INH 14 PUFF INH SCH (08:06)
--- NOTE | 2017-02-14 09:50 | DIAGNOSTIC IMAGING REPORT ---
KUB CLINICAL HISTORY: Nausea, constipation. COMPARISON STUDY: 03/25/2016 FINDINGS: There are surgical clips in the right upper quadrant consistent with a prior cholecystectomy. There is bilateral hip dysplasia with superior lateral subluxation of both femoral heads. There are no transition zones indicate bowel obstruction. There is evidence for a ventriculoperitoneal shunt. There is moderate stool within the colon. There is evidence for spinal dysraphism. IMPRESSION: 1. Mild fecal retention 2. No evidence of bowel obstruction. 3. Evidence for spinal dysraphism, and congenital hip dysplasia. Electronically signed by: Yair Morrison M.D. 02/14/2017 9:49 AM Dictated Date/Time: 02/14/2017 9:43 AM
[2017-02-14] MEDS ORDERED: METRONIDAZOLE 0.75% TOPICAL GEL 45 GM TUBE TOP SCH (13:45)
[2017-02-14 14:08] LABS: BASO % 0.6 %; BASO ABS # 0.05 K/uL (0-0.2); COMPLETE YES; HEMATOCRIT 39.4 % (37-47); IG% 0.2 %; LYMPH % 26.5 %; LYMPH ABS # 2.28 K/uL (1.2-3.4); MEAN CELL VOLUME 96.3 fL (80-100); MEAN CORPUSCULAR HEMOGLOBIN 29.8 pg (25-34); MEAN PLATELET VOLUME 9.7 fL (7.4-10.4); MONO % 7.9 %; NEUT % 61.8 %; PLATELET COUNT 287 K/uL (130-400); RED BLOOD COUNT 4.09 M/uL (4.2-5.4); WHITE BLOOD COUNT 8.61 K/uL (4.8-10.8)
[2017-02-14] MEDS ORDERED: [UNRECOGNIZED DRUG - CODE] IV (15:35)
[2017-02-14] MEDS ORDERED: MTRG45 TOP (15:35)
[2017-02-14] MEDS ORDERED: PRT/40 PO (15:35)
[2017-02-14] MEDS ORDERED: XRL20 PO (15:35)
--- NOTE | 2017-02-14 15:40 | Discharge Instructions ---
Discharge Instructions Date of Service Feb 14, 2017. Admission Reason for Admission: UTI Discharge Discharge Diagnosis / Problem: Urinary Tract Infection, Migraine Headache Discharge Goals Goal(s): Learn about illness, Diagnostic testing, Therapeutic intervention Activity Recommendations Activity Limitations: resume your previous activity (as tolerated) . Instructions / Follow-Up Instructions / Follow-Up From Dr. Farmer - 1. you will complete 7 more days of your IV antibiotic tigecycline through your port. Start this TONIGHT. 2. I would recommend resuming your xarelto once daily as you are at high risk of blood clots while off of it. Only stop it once the surgeons at [place] tell you to go off of it for certain. 3. increase your pantoprazole (protonix) to 40mg twice daily for your heartburn. I would recommend stopping the night-time zantac (ranitidine) since you are increasing the protonix. 4. for possible rosacea on your face/chin you can use metronidazole gel up to twice daily in thin amounts to the red spots. 5. see your family doctor within 1 week. 6. see the surgeons at [place] within 1-2 weeks as scheduled. 7. return to [facility] if - * you have fever over 100.4 degrees * worsening headaches, worsening abdominal pain * inability to eat or drink * any other concerns 8. constipation - I would increase your senna to 2 tablets daily to help your constipation and keep your bowels more regular. Current Hospital Diet Patient's current hospital diet: Regular Diet Discharge Diet Recommended Diet: Regular Diet Procedures Procedures Performed: x-ray of abdomen showing moderate constipation Pending Studies Studies pending at discharge: no Medical Emergencies . Who to Call and When: Medical Emergencies: If at any time you feel your situation is an emergency, please call 911 immediately. . Non-Emergent Contact Non-Emergency issues call your: Primary Care Provider Call Non-Emergent contact if: temperature is above 100.5, your pain is not controlled, your pain is worsening, your pain is unusual for you, your pain is concerning you, you have any medication questions . . "Provider Documentation" section prepared by Nasir Farmer. . VTE Core Measure Inpt VTE Proph given/why not?: Other Anticoagulation (already on Xarelto)
[2017-02-14 16:04] VITALS: BP 133/80; PULSE 83; TEMP 36.8; O2SAT 95
[2017-02-14] MEDS ORDERED: POTA10CA28 PO (16:29)
[2017-02-14] MEDS ORDERED: MGNO400 PO (16:29)
[2017-02-14 17:19] VITALS: BP 109/69; PULSE 94; TEMP 36.8; O2SAT 91
[2017-02-14] MEDS: LITHIUM CARBONATE 300 MG TAB PO SCH (17:50)
--- NOTE | 2017-02-21 11:43 | Discharge Summary ---
Discharge Summary Date of Service Feb 21, 2017. Discharge Summary Admission Date: Feb 10, 2017 at 20:23 Discharge Date: Feb 14, 2017 Discharge Disposition: Home with services Principal Diagnosis: complicated UTI Problems/Secondary Diagnoses: 1. migraine headache 2. 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 history of osteomyelitis bilateral legs s/p bilateral below the knee amputations 5. neurogenic bladder with chronic suprapubic catheter complicated by recurrent UTIs 6. anxiety 7. asthma 8. bipolar type 1 9. depression 10. GERD 11. h/o gastroparesis 12. constipation 13. hypokalemia 14. hypothyroidism 15. h/o PEs Immunizations: Have You Had Influenza Vaccine: Unknown History of Tetanus Vaccine?: Unknown History of Pneumococcal: Unknown History of Hepatitis B Vaccine: Unknown Procedures: 1. KUB x-ray with moderate constipation 2. overnight oximetry study showing no need for night-time O2 Consultations: infectious disease - Connie Charlton, DO Medication Reconciliation New Medications: Magnesium Oxide (Magnesium-Oxide) 400 Mg Tab 400 MG PO DAILY, #30 TABS 2 Refills Potassium Chloride (Micro-K Ext Rel) 10 Meq Capcr 10 MEQ PO DAILY, #30 CAP 2 Refills Tigecycline (Tygacil) 50 Mg Inj 50 MG IV Q12H for 7 Days, VIAL 0 Refills Metronidazole HCl (Metronidazole) 135 Appln/45 Gm Gel 1 APPLN TOP BID, #45 GM 1 Refill apply in thin amounts to red areas on face twice a day Changed Medications: Pantoprazole (Pantoprazole Sodium) 40 Mg Tab 40 MG PO BID, #60 TABS 1 Refill (Changed from: QAM; Refills: ; TAKE THIS MEDICATION ONCE DAILY 30 MINUTES BEFORE BREAKFAST) TAKE THIS MEDICATION 30 MINUTES BEFORE BREAKFAST and at bedtime. Continued Medications: Albuterol Sulfate (Proair Respiclick) 108 Mcg/Act Aer 2 PUFFS INH Q4-6HRS PRN for SOB/Wheezing Benztropine Mesylate (Benztropine Mesylate) 1 Mg Tab 1 MG PO BID Cholecalciferol (Vitamin D) 2,000 Unit Cap 2000 INTER.UNIT PO DAILY Clonazepam (Klonopin) 0.5 Mg Tab 0.5 MG PO BID, TAB Cyanocobalamin (Vitamin B-12) 500 Mcg Tab 500 MCG PO DAILY Dihydroergotamine Mesylate (Migranal) 4 Mg/Ml [place] 1 SPRAY EDIE UD PRN for Migraine ONE SPRAY IN EACH NOSTRIL, REPEAT DOSE AFTER 15 MINUTES IF NEEDED. MAXIMUM 2 DOSES IN 24 HOURS AND 4 DOSES PER 7 DAYS. Docusate Sodium (Dulcolax Stool Softener) 100 Mg Cap 100 MG PO BID PRN for Constipation Ergotamine Tartrate (Ergomar) 2 Mg Sub 2 MG PO 2XWK Ferrous Sulfate (Ferrous Sulfate) 325 Mg Tab 325 MG PO BID Fluticasone Prop/Salmeterol (Advair Diskus 500/50 60 Dose) 1 Ea Aerp 1 PUFF INH BID, INHALER Gabapentin (Gabapentin) 300 Mg Cap 300 MG PO TID Hydroxyzine HCl (Hydroxyzine Pamoate) 25 Mg Tab 50 MG PO HS Hyoscyamine Sulfate (Levsin) 0.125 Mg Tab 0.125 MG PO TID Indomethacin (Indomethacin) 25 Mg Cap 25 MG PO 2XWK PRN for Headache TAKE THIS MEDICATION WITH FOOD Levothyroxine Sodium (Levothyroxine Sodium) 50 Mcg Tab 50 MCG PO DAILY Linaclotide (Linzess) 290 Mcg Cap 290 MCG PO QAM [place] Carbonate ([place] Carbonate) 600 Mg Cap 600 MG PO QPM, CAP TAKE THIS MEDICATION WITH EVENING MEAL [place] Carbonate Er (Lithobid Ext Rel) 450 Mg Tab 450 MG PO QAM Meclizine Hcl (Meclizine Hcl) 25 Mg Tab 25 MG PO TID PRN for Dizziness or Vertigo, TAB Montelukast Sod (Montelukast Sodium) 10 Mg Tab 10 MG PO HS Multiple Vitamin (Multivitamin) 1 Tab Tab 1 TAB PO DAILY, TAB Nortriptyline Hcl (Pamelor) 75 Mg Cap 75 MG PO HS, CAP TAKE ONE 75 MG CAPSULE ALONG WITH ONE 25 MG CAPSULE TO EQUAL BEDTIME DOSE OF 100 MG Nortriptyline Hcl (Pamelor) 25 Mg Cap 25 MG PO HS TAKE ONE 25 MG CAPSULE ALONG WITH ONE 75 MG CAPSULE TO EQUAL BEDTIME DOSE OF 100 MG Nystatin (Topical) (Nystop) 100,000 Unit/Gm Pow 1 APPLN TOP UD Ondasetron Odt (Zofran Odt) 4 Mg Tab 4 MG SL Q8 PRN for Nausea, TAB Probiotic Product (Probiotic) 1 Cap Cap 1 CAP PO DAILY Risperidone (Risperidone) 1 Mg Tab 1 MG PO BID Rivaroxaban (Xarelto) 20 Mg Tab 20 MG PO DAILY, #30 TABS 3 Refills (This prescription has been renewed) Sennosides (Senna Lax) 8.6 Mg Tab 8.6 MG PO DAILY Topiramate (Trokendi Xr) 100 Mg Cap 100 MG PO BID Tramadol HCl (Tramadol HCl) 50 Mg Tab 50 MG PO Q4H PRN for Pain Wound Dressings (Hydrofera Blue Foam Dress) 1 Pad Pad 1 EA EXT UD 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 Discontinued Medications: Ranitidine Hcl (Zantac) 150 Mg Tab 150 MG PO HS, TAB Discharge Exam Physical Exam: General Appearance: no apparent distress, + pertinent finding (speech is slow but fluent and patient is oriented x 3) ENT: pharynx normal, + pertinent finding (singh facies) Neck: no JVD Respiratory/Chest: lungs clear, no respiratory distress, no accessory muscle use Cardiovascular: regular rate, rhythm, no gallop, no murmur, normal peripheral pulses Abdomen / GI: normal bowel sounds, non tender, soft, no organomegaly Extremities: + pertinent finding (b/l BKAs) Neurologic/Psychiatric: oriented x 3 Skin: + pertinent finding (rosacea type findings on face, forehead) Hospital Course HISTORY OF PRESENT ILLNESS: This is 31yo female with history of Spina Bifida, 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 She is currently being followed by Dr. Sauceda in [place]. For the last month patient has experienced intermittent bladder pain and was was being treated for UTI most recently with Tobramycin x 5 days preceded by 7 day course of an antibiotics patient does not recall. Patient was seen in the [facility] ED on and UA was consistent with UTI. No change was made to her antibiotics at that time. Last dose of tobramycin was on Urine culture came back today (day of admission) showing STENOTROPHOMONAS MALTOPHILIA . Patient was advised by Dr Sauceda to come into ED for IV antibiotc treatment . Currently patient reports ongoing bladder pain and reports hematuria with clots a few days ago from catheter that has since resolved. She denies fever, chills. She reports longstanding nausea without vomiting. She denies abdominal pain, flank pain. Patient has LLE wound followed by wound care. HOSPITAL COURSE: The patient's complicated UTI 2nd to stenotrophomonas maltophilia was treated with IV tigecycline while hospitalized. She remained hemodynamically stable during her hospitalization. Her stay was complicated by migraine headache requiring parenteral ergotamine treatment and IV narcotics. She will complete several more days of IV tigecycline at home via her a-port. Her xarelto was continued for her PEs which were diagnosed in November of 2016. All other medical problems remained stable while hospitalized. She has scheduled follow-up with [facility] to discuss revision of her WELLNESS PROGRAM ADMINISTRATOR shunt. Total Time Spent: Greater than 30 minutes This includes examination of the patient, discharge planning, medication reconciliation, and communication with other providers. Discharge Instructions Please refer to the electronic Patient Visit Report (Discharge Instructions) for additional information. Follow-Up see Dr. Boone within 1 week of discharge see [facility] - neurosurgery - as scheduled within 1-2 weeks Additional Copies To Gela Boone M.D.; Alisha Crane, DO
[2017-03-09] MEDS ORDERED: TOBRAMYCIN PO (12:59)
[2017-03-09] MEDS ORDERED: DOXYCYLINE PO (12:59)
[2017-03-15] MEDS ORDERED: ADVIN50/60 INH (13:04)
[2017-03-15] MEDS ORDERED: CHOL200010 PO (13:04)
[2017-03-15] MEDS ORDERED: NRT/25 PO (13:23)
[2017-03-15] MEDS ORDERED: MECL1TAB42 PO (13:52)
[2017-03-15] MEDS ORDERED: MGRSP NAE (13:52)
[2017-03-15] MEDS ORDERED: WOUN1PAD EXT (13:52)
[2017-03-15] MEDS ORDERED: VTMB12 PO (15:08)
[2017-03-15] MEDS ORDERED: LINA1CAP2 PO (16:40)
[2017-03-15] MEDS ORDERED: GABA1CAP4 PO (16:40)
[2017-03-15] MEDS ORDERED: HYOS1TAB PO (16:40)
== END 2017-02-14 17:30 | disposition home health service (06) | DRG 699 ==
LOC: C.EDB 17:03 → C.MS2W 20:23 → ENRESERV 20:43
PROVIDERS: ADMIT Hospitalist; ATTEND Internal Medicine
DX: T83.510A Infection and inflammatory reaction due to cystostomy catheter, initial encounter (principal); N10 Acute pyelonephritis; Q05.4 Unspecified spina bifida with hydrocephalus; T85.09XA Other mechanical complication of ventricular intracranial (communicating) shunt, initial encounter; J45.909 Unspecified asthma, uncomplicated; Z89.512 Acquired absence of left leg below knee; N31.9 Neuromuscular dysfunction of bladder, unspecified; Z93.59 Other cystostomy status; F31.9 Bipolar disorder, unspecified; K31.84 Gastroparesis; K21.9 Gastro-esophageal reflux disease without esophagitis; R11.0 Nausea; B96.89 Other specified bacterial agents as the cause of diseases classified elsewhere; Z89.511 Acquired absence of right leg below knee; Y92.019 Unspecified place in single-family (private) house as the place of occurrence of the external cause; Y83.1 Surgical operation with implant of artificial internal device as the cause of abnormal reaction of the patient, or of later complication, without mention of misadventure at the time of the procedure; E86.0 Dehydration; Z86.14 Personal history of Methicillin resistant Staphylococcus aureus infection; Z98.2 Presence of cerebrospinal fluid drainage device; Y75.2 Prosthetic and other implants, materials and neurological devices associated with adverse incidents; E03.9 Hypothyroidism, unspecified

== ENCOUNTER → 2017-03-09 | Outpatient (CLI) | payer BC, OTHER ==
[~2017-03-09] MED LIST changes: +ADVIN50/60 INH; +ALBU18002 INH; +CGN1X PO; +CHOL200010 PO; +CLON0.5T3 PO; +DOCU-105 PO; +DOXYCYLINE PO; +FERR325T PO; +GABA1CAP4 PO; -HYDR-3124 PO; +HYOS1TAB PO; +INDO1CAP34 PO; -LEVO25TA5 PO; +LEVO50TA6 PO; +LINA1CAP2 PO; +LITH1TAB PO; +LITH600C PO; +MECL1TAB42 PO; +METR0.7527 TOP; +MGNO400 PO; +MGRSP NAE; +MISCCAP80 PO; +MTRCR45 TP; +MTRG45 TOP; +MULTTAB58 PO; +NORT75CA PO; +NRT/25 PO; +NYST100010 TOP; +ONDA4TAB10 SL; +PANT40TA PO; +POTA10CA28 PO; -RIVA1.5T PO; +RIVA1TAB4 PO; +RSP1 PO; +SENN8.6T13 PO; +SNG10 PO; +TOBRAMYCIN PO; +TOPI1CAP3 PO; +ULT50 PO; +VST25HP PO; +VTMB12 PO; +WOUN1PAD EXT; +XRL20 PO; +[UNRECOGNIZED DRUG - CODE] IV; -[UNRECOGNIZED DRUG - CODE] IV; +[UNRECOGNIZED DRUG - CODE] PO
[2017-03-09 11:39] LABS: HEMATOCRIT 39.1 % (37-47); MEAN CELL VOLUME 95.4 fL (80-100); MEAN CORPUSCULAR HEMOGLOBIN 29.3 pg (25-34); MEAN CORPUSCULAR HGB CONC 30.7 g/dl (32-36); MEAN PLATELET VOLUME 10.6 fL (7.4-10.4); PLATELET COUNT 292 K/uL (130-400); WHITE BLOOD COUNT 9.79 K/uL (4.8-10.8)
[2017-03-09 11:47] LABS: ALT/SGPT 28 U/L (12-78); AST/SGOT 11 U/L (15-37); BLOOD UREA NITROGEN 11 mg/dl (7-18); BUN/CREATININE RATIO 18.3 (10-20); CALCIUM 9.4 mg/dl (8.5-10.1); CARBON DIOXIDE 22 mmol/L (21-32); CHLORIDE 110 mmol/L (98-107); CREATININE 0.58 mg/dl (0.60-1.20); GLUCOSE 104 mg/dl (70-99); POTASSIUM 3.5 mmol/L (3.5-5.1); SODIUM 141 mmol/L (136-145)
[2017-03-09 11:50] LABS: ALB/GLOB RATIO 0.7 (0.9-2); ALKALINE PHOSPHATASE 101 U/L (45-117)
--- NOTE | 2017-03-13 15:41 | CODING QUERY NO DIAGNOSIS ---
TREATMENT RENDERED WITHOUT A DIAGNOSIS To promote full compliance with coding requirements relating to patient care, physician participation is requested in all cases of reporter anchor uncertainty. Please assist us with providing a diagnosis/symptom for the test(s) below: A diagnosis/symptom was not documented on your Order. A valid diagnosis/symptom is required to bill all insurances. Please remember that we are unable to code a diagnosis of rule out, probable, possible, questionable, or suspected. Tests that require a diagnosis: * CMP DIAGNOSIS: * CBC W/O DIFF DIAGNOSIS: Provider Signature: Date: Thank you Mamta Willoughby [place] Information Management Once completed, please kindly fax back to [phone] For questions please call [phone]
== END | disposition home or self-care (01) ==
LOC: C.LABSPEC 11:29
PROVIDERS: ATTEND Neurological Surgery
DX: Q05.9 Spina bifida, unspecified (principal)

== ENCOUNTER 2017-03-15 16:43 | Emergency (ER) | payer BC, OTHER ==
[~2017-03-15] VITALS: Ht 119.4 cm; Wt 118.0 kg
[~2017-03-15 16:43] MED LIST changes: -ALBU18002 INH; -CGN1X PO; -CLON0.5T3 PO; -DOCU-105 PO; -FERR325T PO; -INDO1CAP34 PO; -LEVO50TA6 PO; -LITH1TAB PO; -LITH600C PO; -METR0.7527 TOP; -MISCCAP80 PO; -MTRCR45 TP; -MULTTAB58 PO; -NORT75CA PO; -NYST100010 TOP; -ONDA4TAB10 SL; -PANT40TA PO; -RIVA1TAB4 PO; -RSP1 PO; -SENN8.6T13 PO; -SNG10 PO; -TOPI1CAP3 PO; -ULT50 PO; -VST25HP PO; -[UNRECOGNIZED DRUG - CODE] PO
[2017-03-15 16:45] VITALS: TEMP 36.9; Ht 119.4 cm; Wt 118.0 kg
[2017-03-15] MEDS ORDERED: SNG10 PO (16:58)
[2017-03-15] MEDS ORDERED: INDO1CAP34 PO (16:58)
[2017-03-15] MEDS ORDERED: LITH1TAB PO (16:58)
[2017-03-15] MEDS ORDERED: RSP1 PO (16:58)
[2017-03-15] MEDS ORDERED: ULT50 PO (17:26)
[2017-03-15] MEDS ORDERED: ONDA4TAB10 SL (17:26)
[2017-03-15] MEDS ORDERED: FERR325T PO (17:26)
[2017-03-15] MEDS ORDERED: CLON0.5T3 PO (17:27)
[2017-03-15] MEDS ORDERED: SENN8.6T13 PO (17:28)
[2017-03-15] MEDS ORDERED: DiphenhydrAMINE HCL 50 MG/ML VIAL IV STA (17:29)
[2017-03-15] MEDS ORDERED: PROCHLORPERAZINE 5 MG/ML 2 ML VIAL IV STA (17:29)
[2017-03-15] MEDS ORDERED: ACETAMINOPHEN 500 MG TAB PO STA (17:29)
[2017-03-15] MEDS ORDERED: DEXAMETHASONE SOD INJ 10 MG/ML VIAL IV ONE (17:30)
[2017-03-15] MEDS ORDERED: DOCU-105 PO (17:35)
[2017-03-15] MEDS ORDERED: RIVA1TAB4 PO (17:42)
[2017-03-15] MEDS ORDERED: PANT40TA PO (17:42)
[2017-03-15] MEDS ORDERED: MTRCR45 TP (17:42)
[2017-03-15] MEDS ORDERED: METR0.7527 TOP (17:45)
[2017-03-15 18:00] LABS: HEMATOCRIT 35.4 % (37-47); MEAN CELL VOLUME 92.2 fL (80-100); MEAN CORPUSCULAR HEMOGLOBIN 29.2 pg (25-34); MEAN CORPUSCULAR HGB CONC 31.6 g/dl (32-36); MEAN PLATELET VOLUME 9.9 fL (7.4-10.4); PLATELET COUNT 385 K/uL (130-400); RED BLOOD COUNT 3.84 M/uL (4.2-5.4); WHITE BLOOD COUNT 10.48 K/uL (4.8-10.8)
[2017-03-15] MEDS ORDERED: MULTTAB58 PO (18:07)
[2017-03-15 18:19] LABS: BASO % 0.4 %; BASO ABS # 0.04 K/uL (0-0.2); COMPLETE YES; EOS % 6.3 %; IG% 0.3 %; LYMPH % 21.7 %; LYMPH ABS # 2.27 K/uL (1.2-3.4); MONO % 6.8 %; NEUT % 64.5 %
[2017-03-15 18:22] LABS: INR 1.2 (0.9-1.1); PARTIAL THROMBOPLASTIN RATIO 3.2; PROTHROMBIN TIME (PATIENT) 12.9 SECONDS (9.0-12.0)
[2017-03-15 18:26] LABS: BUN/CREATININE RATIO 18.3 (10-20); CALCIUM 9.1 mg/dl (8.5-10.1); CREATININE 0.71 mg/dl (0.60-1.20); POTASSIUM 3.4 mmol/L (3.5-5.1)
[2017-03-15] MEDS ORDERED: LEVO50TA6 PO (18:32)
[2017-03-15] MEDS ORDERED: NORT75CA PO (18:38)
[2017-03-15] MEDS ORDERED: VST25HP PO (18:40)
--- NOTE | 2017-03-15 18:52 | DIAGNOSTIC IMAGING REPORT ---
CT HEAD WITHOUT CONTRAST (CT) CLINICAL HISTORY: Severe headache COMPARISON STUDY: 02/03/2017 TECHNIQUE: Axial CT of the brain is performed from the vertex to the skull base. IV contrast was not administered for this examination. A dose lowering technique was utilized adhering to the principles of ALARA. CT DOSE: 614.27 mGy.cm FINDINGS: No intra or extra-axial mass lesions are visualized. 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 There is a right frontal ventriculostomy catheter which appears to terminate in the region of the anterior horn the right lateral ventricle. The ventricular system remains decompressed. There are prominent interhemispheric occipital sulci. There is no acute hemorrhage. There is persistent fullness the level the foramen magnum. A Chiari malformation cannot be excluded. There is a right occipital calvarial defect, likely secondary to a prior dianne hole from a shunt. There is no evidence of acute sinusitis IMPRESSION: 1. 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 Right frontal ventriculostomy catheter unchanged in position. The ventricles remain decompressed. 3. No evidence of acute hemorrhage. No acute findings. Electronically signed by: Yair Morrison M.D. 03/15/2017 6:51 PM Dictated Date/Time: 03/15/2017 6:44 PM
[2017-03-15 18:59] LABS: LYME DISEASE AB IGM NEG (NEG)
[2017-03-15 19:09] LABS: LYME DISEASE AB IGG POS (NEG)
[2017-03-15] MEDS ORDERED: [UNRECOGNIZED DRUG - CODE] PO (19:25)
--- NOTE | 2017-03-15 19:30 | DIAGNOSTIC IMAGING REPORT ---
SKULL <4 VIEWS CLINICAL HISTORY: shunt series COMPARISON STUDY: 03/25/2016 FINDINGS: There is a right frontal ventriculostomy catheter. No shunt tubing discontinuity is visualized. The previous occipital shunt catheter has been removed. IMPRESSION: Interval removal of the occipital shunt catheter and placement of a frontal shunt catheter. No evidence of shunt tubing discontinuity. Electronically signed by: Yair Morrison M.D. 03/15/2017 7:28 PM Dictated Date/Time: 03/15/2017 7:27 PM
--- NOTE | 2017-03-15 19:31 | DIAGNOSTIC IMAGING REPORT ---
SOFT TISSUE NECK CLINICAL HISTORY: shunt series COMPARISON STUDY: 03/25/2016 FINDINGS: The study is limited from a technical standpoint due to the patient's large body habitus. There is no shunt tubing discontinuity identified. The prevertebral soft tissues appear normal as visualized. The epiglottis appears normal. IMPRESSION: No evidence of shunt tubing discontinuity. Electronically signed by: Yair Morrison M.D. 03/15/2017 7:30 PM Dictated Date/Time: 03/15/2017 7:29 PM
--- NOTE | 2017-03-15 19:33 | DIAGNOSTIC IMAGING REPORT ---
CHEST 2 VIEWS ROUTINE CLINICAL HISTORY: Shunt series. COMPARISON STUDY: Chest radiograph February 03, [address] November 15, 2016. FINDINGS: A right subclavian [id number] is in place. A ventriculopleural shunt catheter is noted. This is located within the right anterolateral chest wall and terminates within the right pleural space. Visualized portions of the catheter are intact. Lung volumes are diminished. This is unchanged. There is no evidence of pulmonary edema. No consolidation is identified. Cardiomediastinal silhouette is stable. An old MECHANICAL EQUIPMENT TEST ENGINEER shunt catheter is noted. IMPRESSION: 1. Visualized portions of the right ventriculopleural shunt catheter intact. 2. No acute cardiopulmonary findings. Electronically signed by: Ryan Boone M.D. 03/15/2017 7:31 PM Dictated Date/Time: 03/15/2017 7:28 PM
--- NOTE | 2017-03-15 19:33 | DIAGNOSTIC IMAGING REPORT ---
ABDOMEN 2 VIEWS CLINICAL HISTORY: shunt series COMPARISON STUDY: No previous studies for comparison. FINDINGS: The examination is limited from a technical standpoint. 2 right abdominal shunt catheters are visualized. There are surgical clips within the right upper quadrant consistent with a prior cholecystectomy. There is evidence for spinal dysraphism. There is evidence for hip subluxation. There is fecal retention. IMPRESSION: 1. 2 right-sided shunt catheters are visualized 2. Spinal dysraphism 3. Fecal retention Electronically signed by: Yair Morrison M.D. 03/15/2017 7:32 PM Dictated Date/Time: 03/15/2017 7:30 PM
[2017-03-15 19:48] LABS: URINE APPEARANCE CLOUDY (CLEAR); URINE BILIRUBIN NEG (NEG); URINE COLOR YELLOW; URINE EPITHELIAL CELL AUTO >30 /lpf (0-5); URINE NITRITE NEG (NEG); URINE SPECIFIC GRAVITY 1.018 (1.000-1.030); UROBILINOGEN NEG (NEG); ZZURINE CULT IF INDIC CATH YES
[2017-03-15 19:52] LABS: MANUAL MICROSCOPIC REQUIRED? NO; REVIEW REQ? YES
[2017-03-15] MEDS ORDERED: TOPI1CAP3 PO (20:28)
[2017-03-15] MEDS ORDERED: NYST100010 TOP (20:28)
[2017-03-15] MEDS ORDERED: MISCCAP80 PO (20:28)
[2017-03-15] MEDS ORDERED: MoRPHine SULFATE 4 MG/ML 1 ML CARP\\VIAL IV STA (20:35)
--- NOTE | 2017-03-15 20:37 | EMERGENCY ROOM VISIT NOTE ---
History Report prepared by James: Edu Villarreal Under the Supervision of: Dr. Earl Rawls M.D. First contact with patient: 17:01 Chief Complaint: HEADACHE Stated Complaint: SEVERE HEADACHE History of Present Illness The patient is a 32 year old white female with a past medical history of spina bifida and osteomyelitis who presents to the ED with a cc of persistent headache beginning six weeks ago. Has [employer] shunt in place. Seen in [place] for her symptoms a few weeks ago. Has taken Oxycodone for her pain, but nothing has improved her symptoms. Recently started on Xarelto for PE. Positive foul smelling urine. Recently on antibiotics for a UTI. Recently developed cellulitis of the left breast. She finished her treatment of Tobramycin five days ago. Source of History: patient Onset: Six weeks ago Position: head Timing: other (persistent) Modifying Factors (Relieving): other (none) Associated Symptoms: + urinary symptoms (foul smelling urine) Review of Systems See HPI for pertinent positives and negatives. A total of ten systems were reviewed and were otherwise negative. Past Medical & Surgical Medical Problems: (1) Allergic reaction caused by a drug (2) Anxiety (3) Asthma (4) Asthma exacerbation (5) Bipolar 1 disorder (6) Cellulitis (7) Depression (8) Gastroparesis (9) GERD (gastroesophageal reflux disease) (10) Hydrocephalus (11) Intractable headache (12) Migraines (13) MRSA (methicillin resistant Staphylococcus aureus) (14) Osteomyelitis (15) Pulmonary embolism (16) Shunt placement with revision x8 (17) Spina bifida (18) UTI (urinary tract infection) Surgical Problems: (1) S/P BKA (below knee amputation) bilateral Family History Cancer Diabetes mellitus Lung disease Social History Smoking Status: Never Smoker Alcohol Use: none Drug Use: none Marital Status: single Housing Status: lives with family Occupation Status: disabled Current/Historical Medications Scheduled Benztropine Mesylate (Benztropine Mesylate), 1 MG PO BID Cholecalciferol (Vitamin D), 2,000 INTER.UNIT PO DAILY Clonazepam (Klonopin), 0.5 MG PO BID Cyanocobalamin (Vitamin B-12), 500 MCG PO DAILY Ergotamine Tartrate (Ergomar), 2 MG PO 2XWK Ferrous Sulfate (Ferrous Sulfate), 325 MG PO BID Fluticasone Prop/Salmeterol (Advair Diskus 500/50 60 Dose), 1 PUFF INH BID Gabapentin (Gabapentin), 300 MG PO TID Hydroxyzine HCl (Hydroxyzine Pamoate), 50 MG PO HS Hyoscyamine Sulfate (Levsin), 0.125 MG PO TID Levothyroxine Sodium (Levothyroxine Sodium), 50 MCG PO DAILY Linaclotide (Linzess), 290 MCG PO QAM [place] Carbonate ([place] Carbonate), 600 MG PO QPM [place] Carbonate Er (Lithobid Ext Rel), 450 MG PO QAM Metronidazole (Topical) (Metrogel), 1 APPLN TOP BID Montelukast Sod (Montelukast Sodium), 10 MG PO HS Multiple Vitamin (Multivitamin), 1 TAB PO DAILY Nortriptyline Hcl (Pamelor), 75 MG PO HS Nortriptyline Hcl (Pamelor), 25 MG PO HS Nystatin (Topical) (Nystop), 1 APPLN TOP UD Pantoprazole (Protonix), 40 MG PO DAILY Probiotic Product (Probiotic), 1 CAP PO DAILY Risperidone (Risperidone), 1 MG PO BID Rivaroxaban (Xarelto), 20 MG PO DAILY Sennosides (Senna Lax), 8.6 MG PO DAILY Topiramate (Trokendi Xr), 100 MG PO BID Wound Dressings (Hydrofera Blue Foam Dress), 1 EA EXT UD Scheduled PRN Albuterol Sulfate (Proair Respiclick), 2 PUFFS INH Q4-6HRS PRN for SOB/Wheezing Dihydroergotamine Mesylate (Migranal), 1 SPRAY EDIE UD PRN for Migraine Docusate Sodium (Dulcolax Stool Softener), 100 MG PO BID PRN for Constipation Indomethacin (Indomethacin), 25 MG PO 2XWK PRN for Headache Meclizine Hcl (Meclizine Hcl), 25 MG PO TID PRN for Dizziness or Vertigo Ondasetron Odt (Zofran Odt), 4 MG SL Q8 PRN for Nausea Tramadol HCl (Tramadol HCl), 50 MG PO Q4H PRN for Pain Allergies Coded Allergies: Adhesives (Verified Allergy, Intermediate, TAPE- HIVES, 02/17/17) Ceftriaxone (Verified Allergy, Intermediate, rash, 02/17/17) Chlorhexidine (Verified Allergy, Intermediate, RASH, 02/17/17) Ciprofloxacin (Verified Allergy, Intermediate, hives, 02/17/17) Imipenem (Verified Allergy, Intermediate, PT REPORTS ITCHING, 02/17/17) Latex (Verified Allergy, Intermediate, hives, 02/17/17) Levofloxacin (Verified Allergy, Intermediate, rash, 02/17/17) Linezolid (Verified Allergy, Intermediate, rash, 02/17/17) Piperacillin (Verified Allergy, Intermediate, SEVERE RASH, HIVES, 02/17/17) Tazobactam (Verified Allergy, Intermediate, SEVERE RASH, HIVES, 02/17/17) Vancomycin (Verified Allergy, Intermediate, rash, 02/17/17) Tobramycin (Verified Allergy, Mild, MILD RASH ON ARM, RED FACE, 02/17/17) IMPROVED AFTER BENADRYL, TAKING REST OF DOSE Amikacin (Verified Allergy, Unknown, PER DR ROBINS,RXN WAS TO ZOSYN NOT AMKrash;hives, 02/17/17) Sulfamethoxazole w/Trimethoprim (Verified Allergy, Unknown, Hives, 02/17/17 ) Can be pretreated with 10mg Zytrec 45 min prior to admin Physical Exam Vital Signs Date Time Temp Pulse Resp B/P (MAP) Pulse Ox O2 Delivery O2 Flow Rate FiO2 03/15/17 20:53 95 18 108/65 98 Room Air 03/15/17 19:37 85 18 101/64 98 Room Air 03/15/17 18:06 83 20 148/88 98 Room Air 03/15/17 16:45 36.9 96 18 124/75 94 Room Air Physical Exam GENERAL: Awake, alert, well-appearing, NAD HENT: Normocephalic, atraumatic. Prior incisional surgical scars over the right frontotemporal area with shunt in place. EYES: Normal conjunctiva. Sclera non-icteric. NECK: Supple. No nuchal rigidity. FROM. RESPIRATORY: CTAB, no rhonchi, wheezing, crackles CARDIAC: RRR, no MRG ABDOMEN: Soft, NTND, BS+. Suprapubic catheter in place without erythema or calor. MSK: No chest wall TTP. Bilateral BKA. NEURO: GCS 15, CN 2-12 intact, moves all 4s on command. Good finger to nose. No dysmetria. No drift. 5/5 UE and LE strength bilaterally. No sensory deficit. SKIN: No rash or jaundice noted. Medical Decision & Procedures ER Provider Diagnostic Interpretation: Radiology results as stated below per my review and radiologist interpretation: SOFT TISSUE NECK FINDINGS: The study is limited from a technical standpoint due to the patient's large body habitus. There is no shunt tubing discontinuity identified. The prevertebral soft tissues appear normal as visualized. The epiglottis appears normal. IMPRESSION: No evidence of shunt tubing discontinuity. Electronically signed by: Yair Morrison M.D. 03/15/2017 7:30 PM SKULL <4 VIEWS FINDINGS: There is a right frontal ventriculostomy catheter. No shunt tubing discontinuity is visualized. The previous occipital shunt catheter has been removed. IMPRESSION: Interval removal of the occipital shunt catheter and placement of a frontal shunt catheter. No evidence of shunt tubing discontinuity. Electronically signed by: Yair Morrison M.D. 03/15/2017 7:28 PM ABDOMEN 2 VIEWS FINDINGS: The examination is limited from a technical standpoint. 2 right abdominal shunt catheters are visualized. There are surgical clips within the right upper quadrant consistent with a prior cholecystectomy. There is evidence for spinal dysraphism. There is evidence for hip subluxation. There is fecal retention. IMPRESSION: 1. 2 right-sided shunt catheters are visualized 2. Spinal dysraphism 3. Fecal retention Electronically signed by: Yair Morrison M.D. 03/15/2017 7:32 PM CHEST 2 VIEWS ROUTINE FINDINGS: A right subclavian Oqfana-x-Dfud is in place. A ventriculopleural shunt catheter is noted. This is located within the right anterolateral chest wall and terminates within the right pleural space. Visualized portions of the catheter are intact. Lung volumes are diminished. This is unchanged. There is no evidence of pulmonary edema. No consolidation is identified. Cardiomediastinal silhouette is stable. An old [employer] shunt catheter is noted. IMPRESSION: 1. Visualized portions of the right ventriculopleural shunt catheter intact. 2. No acute cardiopulmonary findings. Electronically signed by: Ryan Boone M.D. 03/15/2017 7:[address] HEAD WITHOUT CONTRAST (CT) FINDINGS: No intra or extra-axial mass lesions are visualized. 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 There is a right frontal ventriculostomy catheter which appears to terminate in the region of the anterior horn the right lateral ventricle. The ventricular system remains decompressed. There are prominent interhemispheric occipital sulci. There is no acute hemorrhage. There is persistent fullness the level the foramen magnum. A Chiari malformation cannot be excluded. There is a right occipital calvarial defect, likely secondary to a prior dianne hole from a shunt. There is no evidence of acute sinusitis IMPRESSION: 1. 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 Right frontal ventriculostomy catheter unchanged in position. The ventricles remain decompressed. 3. No evidence of acute hemorrhage. No acute findings. Electronically signed by: Yair Morrison M.D. 03/15/2017 6:51 PM Laboratory Results 03/15/17 17:50 Red Blood Count 3.84, Mean Corpuscular Volume 92.2, Mean Corpuscular Hemoglobin 29.2, Mean Corpuscular Hemoglobin Concent 31.6, Mean Platelet Volume 9.9, Neutrophils (%) (Auto) 64.5, Lymphocytes (%) (Auto) 21.7, Monocytes (%) (Auto) 6.8, Eosinophils (%) (Auto) 6.3, Basophils (%) (Auto) 0.4, Neutrophils # (Auto) 6.77, Lymphocytes # (Auto) 2.27, Monocytes # (Auto) 0.71, Eosinophils # (Auto) 0.66, Basophils # (Auto) 0.04 03/15/17 17:50 Test 03/15/17 17:50 03/15/17 18:45 White Blood Count 10.48 K/uL (4.8-10.8) Red Blood Count 3.84 M/uL (4.2-5.4) Hemoglobin 11.2 g/dL (12.0-16.0) Hematocrit 35.4 % (37-47) Mean Corpuscular Volume 92.2 fL (80-100) Mean Corpuscular Hemoglobin 29.2 pg (25-34) Mean Corpuscular Hemoglobin Concent 31.6 g/dl (32-36) Platelet Count 385 K/uL (130-400) Mean Platelet Volume 9.9 fL (7.4-10.4) Neutrophils (%) (Auto) 64.5 % Lymphocytes (%) (Auto) 21.7 % Monocytes (%) (Auto) 6.8 % Eosinophils (%) (Auto) 6.3 % Basophils (%) (Auto) 0.4 % Neutrophils # (Auto) 6.77 K/uL (1.4-6.5) Lymphocytes # (Auto) 2.27 K/uL (1.2-3.4) Monocytes # (Auto) 0.71 K/uL (0.11-0.59) Eosinophils # (Auto) 0.66 K/uL (0-0.5) Basophils # (Auto) 0.04 K/uL (0-0.2) RDW Standard Deviation 50.4 fL (36.4-46.3) RDW Coefficient of Variation 14.9 % (11.5-14.5) Immature Granulocyte % (Auto) 0.3 % Immature Granulocyte # (Auto) 0.03 K/uL (0.00-0.02) Prothrombin Time 12.9 SECONDS (9.0-12.0) Prothromb Time International Ratio 1.2 (0.9-1.1) Activated Partial Thromboplast Time 82.6 SECONDS (21.0-31.0) Partial Thromboplastin Ratio 3.2 Anion Gap 8.0 mmol/L (3-11) Est Creatinine Clear Calc Drug Dose 103.5 ml/min Estimated GFR () 132.5 Estimated GFR (Non- 114.3 BUN/Creatinine Ratio 18.3 (10-20) Calcium Level 9.1 mg/dl (8.5-10.1) Lyme Disease IgG Antibody POS (NEG) Urine Color YELLOW Urine Appearance CLOUDY (CLEAR) Urine pH 6.0 (4.5-7.5) Urine Specific [place] 1.018 (1.000-1.030) Urine Protein TRACE (NEG) Urine Glucose (UA) NEG (NEG) Urine Ketones NEG (NEG) Urine Occult Blood 2+ (NEG) Urine Nitrite NEG (NEG) Urine Bilirubin NEG (NEG) Urine Urobilinogen NEG (NEG) Urine Leukocyte Esterase MODERATE (NEG) Urine WBC (Auto) >30 /hpf (0-5) Urine RBC (Auto) 10-30 /hpf (0-4) Urine Hyaline Casts (Auto) 10-30 /lpf (0-5) Urine Epithelial Cells (Auto) >30 /lpf (0-5) Urine Bacteria (Auto) NEG (NEG) Urine Renal Epithelial Cells 0-5 /lpf (0-5) Urine Test NEG (NEG) Laboratory results reviewed by me Medications Administered Medications (Trade) Dose Ordered Sig/Brenna Route Start Time Stop Time Status Last Admin Dose Admin Dexamethasone Sodium Phosphate (Decadron Inj) 10 mg NOW ONCE IV 03/15/17 17:30 03/15/17 17:34 DC 03/15/17 17:57 10 MG Diphenhydramine HCl (Benadryl Inj) 25 mg NOW STAT IV 03/15/17 17:29 03/15/17 17:34 DC 03/15/17 17:56 25 MG Prochlorperazine Edisylate (Compazine Inj) 10 mg NOW STAT IV 03/15/17 17:29 03/15/17 17:34 DC 03/15/17 17:56 10 MG Acetaminophen (Tylenol Tab) 1,000 mg NOW STAT PO 03/15/17 17:29 03/15/17 17:34 DC 03/15/17 17:58 1,000 MG Morphine Sulfate (MoRPHine SULFATE INJ) 4 mg NOW STAT IV 03/15/17 20:35 03/15/17 20:36 DC 03/15/17 20:47 4 MG Heparin Sodium (Porcine) (Heparin 100 Unit/ml 5ml Flush) 5 ml STK-MED ONCE .ROUTE 03/15/17 20:50 03/15/17 20:51 DC 03/15/17 20:50 5 ML ECG Indication: other (headache) Rate (beats per minute): 86 Rhythm: normal sinus Findings: other (Normal intervals. Normal axis. T-wave flattening in V2 and V3. no other STS changes or TWI. ) ED Course 1719: The patient was evaluated in room B12B. A complete history and physical exam was performed. 1729: Ordered Tylenol [id number] mg PO, Compazine Inj 10 mg IV, Benadryl Inj 25 mg IV. 1730 :Ordered Decadron Inj 10 mg IV. 2030: I reevaluated the patient. Discussed results and discharge instructions: she verbalized understanding and agreement. The patient is ready for discharge. Medical Decision The patient is a 32 year old white female with a past medical history of spina bifida and osteomyelitis who presents to the ED with a cc of persistent headache beginning six weeks ago. Differential diagnosis includes etiologies such as migraine headache, meningitis, sinusitis, CO exposure, ICH, SAH, infection, tumor, headache, sinus thrombosis, arterial dissection, as well as others were entertained. MRI MRV completed February 20 and was negative. Evaluated at bedside. Patient w/ complaint of migraine prior to MRI/MRV and prior to stay at [facility] under care of multiple specialists. Patient w/o acute neuro deficits. FRIED not helped w/ at home meds but has not tried tramadol, motrin , tylenol; only oxy tonight. Patient had blood work, UA, CT, and shunt series completed. Blood work farily unremarkable. Patient did have + IgG for lymes which was pending confirmatory testing. No recent outdoor activity. UA unlikely infected at this time. CT neg. Shunt intact. I did page and speak w/ Dr. Gato HAWKINS at [facility] who agreed w/ POC. Patient was offered a number of additional FRIED medications for home but declined. Patient comfortable w/ going home at this time. Do not believe she needs additional imaging or procedures to test for SAH or things like idiopathic intracranial HTN given patient's FRIED is similar although ?worse last couple of days but given recent stay and significant workup at [facility] w/ neg MRI/MRV, patient and mother agreed w/ plan. Patient informed of findings, given f/u, d/c and return precautions. Agreed w/ POC and was d/c'ed to home. Medication Reconcilliation Current Medication List: was personally reviewed by me Blood Pressure Screening Patient's blood pressure: Elevated blood pressure Blood pressure disposition: Elevated BP felt to be situational Consults Time Called: 1955 Consulting Physician: Dr. Hoskins -Neurosurgery Returned Call: 2023 Discussed the patient's case. Dr. Hoskins agrees with the treatment plan and recommends outpatient follow-up. Impression Primary Impression: Chronic headache Scribe Attestation The scribe's documentation has been prepared under my direction and personally reviewed by me in its entirety. I confirm that the note above accurately reflects all work, treatment, procedures, and medical decision making performed by me. Departure Information Dispostion Home / Self-Care Referrals No Doctor, Assigned (PCP) Patient Instructions Headache Pain, My [facility] Additional Instructions Please return to the emergency department if you have worsening or recurrent symptoms not amenable to at-home treatment. Please call for a follow-up appointment with her primary care physician. Please take your medications as prescribed. If you have other concerns and/or complaints please feel free to also call your primary care physician's office or return the ED for further evaluation, management, and treatment. You received narcotic or benzodiazepene medication while in the emergency room today. This is an addictive medication that may cause drowziness as well as constipation. Do not drive, operate heavy machinery, or drink alcohol under the influence of this medication. You may take 600 mg Ibuprofen every 6 hours as needed for pain with food for no more than 2 consecutive days. You may take tylenol 1000mg every 6 hours as needed for pain. You may take motrin and tylenol separately or at the same time. Take tramadol for breakthrough pain. You have been examined and treated today on an emergency basis only. This is not a substitute for, or an effort to provide, complete comprehensive medical care. It is impossible to recognize and treat all injuries or illnesses in a single emergency department visit. It is therefore important that you follow up closely with [facility]. Call as soon as possible for an appointment. Thank you for your time and consideration. I look forward to speaking with you again soon. Please don't hesitate to call us if you have any questions. Problem Qualifiers Primary Impression: Chronic headache Headache type: unspecified Intractability: intractable Qualified Codes: R51 - Headache
[2017-03-15 20:53] VITALS: BP 108/65; PULSE 95; O2SAT 98
[2017-03-15] MEDS ORDERED: LITH600C PO (22:29)
[2017-03-15] MEDS ORDERED: CGN1X PO (22:29)
[2017-03-15] MEDS ORDERED: ALBU18002 INH (22:29)
== END 2017-03-15 21:02 | disposition home or self-care (01) ==
LOC: C.EDB 16:44
DX: R51 Headache (principal); G89.29 Other chronic pain; Q05.9 Spina bifida, unspecified; M86.9 Osteomyelitis, unspecified; F41.9 Anxiety disorder, unspecified; J45.909 Unspecified asthma, uncomplicated; F31.9 Bipolar disorder, unspecified; F32.9 Major depressive disorder, single episode, unspecified; K21.9 Gastro-esophageal reflux disease without esophagitis; Z79.01 Long term (current) use of anticoagulants; Z86.711 Personal history of pulmonary embolism; Z98.2 Presence of cerebrospinal fluid drainage device; Z87.440 Personal history of urinary (tract) infections; Z89.511 Acquired absence of right leg below knee; Z89.512 Acquired absence of left leg below knee; Z83.3 Family history of diabetes mellitus

== ENCOUNTER → 2017-03-15 | Outpatient (CLI) | payer BC, OTHER ==
[2017-03-15 11:13] LABS: URINE APPEARANCE CLEAR (CLEAR); URINE BILIRUBIN NEG (NEG); URINE COLOR YELLOW; URINE EPITHELIAL CELL AUTO >30 /lpf (0-5); URINE NITRITE NEG (NEG); URINE PH 8.5 (4.5-7.5); UROBILINOGEN NEG (NEG)
[2017-03-15 11:14] LABS: MANUAL MICROSCOPIC REQUIRED? NO; REVIEW REQ? YES
[2017-03-15 11:28] LABS: URINE PATH CASTS 0-3 GRANULAR CASTS /lpf (0)
== END | disposition home or self-care (01) ==
LOC: C.LABBC 08:50
PROVIDERS: ATTEND Internal Medicine Infectious Disease
DX: N39.0 Urinary tract infection, site not specified (principal)

== ENCOUNTER → 2017-03-17 | Outpatient (CLI) | payer BC, OTHER ==
[~2017-03-17] MED LIST changes: +ALBU18002 INH; +CGN1X PO; +CLON0.5T3 PO; +DOCU-105 PO; +FERR325T PO; +INDO1CAP34 PO; +LEVO50TA6 PO; +LITH1TAB PO; +LITH600C PO; +METR0.7527 TOP; +MISCCAP80 PO; +MTRCR45 TP; +MULTTAB58 PO; +NORT75CA PO; +NYST100010 TOP; +ONDA4TAB10 SL; +PANT40TA PO; +RIVA1TAB4 PO; +RSP1 PO; +SENN8.6T13 PO; +SNG10 PO; +TOPI1CAP3 PO; +ULT50 PO; +VST25HP PO; +[UNRECOGNIZED DRUG - CODE] PO
[2017-03-17 14:10] LABS: ALB/GLOB RATIO 0.7 (0.9-2); ALKALINE PHOSPHATASE 91 U/L (45-117); ALT/SGPT 22 U/L (12-78); AST/SGOT 8 U/L (15-37); BLOOD UREA NITROGEN 13 mg/dl (7-18); BUN/CREATININE RATIO 18.2 (10-20); CALCIUM 8.9 mg/dl (8.5-10.1); CARBON DIOXIDE 21 mmol/L (21-32); CHLORIDE 113 mmol/L (98-107); CREATININE 0.71 mg/dl (0.60-1.20); GLUCOSE 83 mg/dl (70-99); HDL CHOLESTEROL 51 mg/dl; POTASSIUM 3.7 mmol/L (3.5-5.1); SODIUM 143 mmol/L (136-145)
[2017-03-17 14:11] LABS: ESTIMATED AVERAGE GLUCOSE 100 mg/dl; HA1C FLAG Normal (Normal)
[2017-03-17 14:23] LABS: CHOLESTEROL 207 mg/dl (0-200); CHOLESTEROL/HDL RATIO 4.1; LDL CHOLESTEROL CALCULATED 124 mg/dl; TRIGLYCERIDES 161 mg/dl (0-150); VERY LOW DENSITY LIPOPROT CALC 32 mg/dl
== END | disposition home or self-care (01) ==
LOC: C.LABBC 10:35
PROVIDERS: ATTEND Physician Assistant Medical
DX: I26.99 Other pulmonary embolism without acute cor pulmonale (principal); E55.9 Vitamin D deficiency, unspecified; D50.9 Iron deficiency anemia, unspecified; E66.01 Morbid (severe) obesity due to excess calories; E03.9 Hypothyroidism, unspecified; E87.6 Hypokalemia

== ENCOUNTER → 2017-03-27 | Outpatient (CLI) | payer BC, OTHER ==
[~2017-03-27] MED LIST changes: +BENZ-88 PO; -CGN1X PO; +DAPT500I; -DOXYCYLINE PO; +FERR1TAB62 PO; -FERR325T PO; +GENTAMYCIN PO; -MGNO400 PO; -MTRCR45 TP; -MTRG45 TOP; +OXYC-57 PO; -POTA10CA28 PO; -PRT/40 PO; +SENN1TAB80 PO; -SENN8.6T13 PO; -TOBRAMYCIN PO; +TOPI1CAP12 PO; -XRL20 PO; -[UNRECOGNIZED DRUG - CODE] IV; +[UNRECOGNIZED DRUG - CODE] PO; -[UNRECOGNIZED DRUG - CODE] PO
--- NOTE | 2017-03-27 16:43 | DIAGNOSTIC IMAGING REPORT ---
AP CHEST WITH ABDOMINAL SERIES CLINICAL HISTORY: Generalized abdominal pain. Constipation. FINDINGS: An AP chest radiograph is compared to study dated 03/15/2017. The examination is severely compromised by large body habitus. A right subclavian central venous infusion port is unchanged in position. A ventriculostomy catheter traverses the right hemithorax. This is coiled projecting over the right lower chest. Heart is normal for projection. The pulmonary vascular structures noncongested. There are low lung volumes with bibasilar atelectasis. The lungs and pleural spaces are otherwise grossly clear. No pneumothorax is seen. The skeletal structures appear osteopenic. The bony thorax is grossly intact. Supine and decubitus abdominal radiographs are compared to study dated 02/14/2017. Correlation is able abdominal CT dated 04/19/2016. The examination is severely compromised by large body habitus. A catheter projects over the right upper quadrant. Additional tubing projects over the mid abdomen. Cholecystectomy clips are noted. There is a nonobstructed abdominal bowel gas pattern. There is moderate to severe constipation. No evidence of intraperitoneal free air is seen. There are no abnormal abdominal calcifications. The lumbosacral spine and bony pelvis appear intact. IMPRESSION: 1. The examination is degraded by large body habitus. 2. Low lung volumes and bibasilar atelectasis. The lungs are otherwise clear as imaged. 3. Nonobstructed abdominal bowel gas pattern noting moderate to severe constipation. 4. A ventriculostomy catheter is noted. The catheter and its course are not well evaluated. Electronically signed by: Devin Dacosta M.D. 03/27/2017 4:42 PM Dictated Date/Time: 03/27/2017 4:36 PM
== END | disposition home or self-care (01) ==
LOC: C.RAD 15:25
PROVIDERS: ATTEND Physician Assistant
DX: K59.00 Constipation, unspecified (principal); J98.11 Atelectasis; Z98.890 Other specified postprocedural states

== ENCOUNTER → 2017-04-03 | Outpatient (CLI) | payer BC, OTHER ==
[2017-04-03 16:22] LABS: MANUAL MICROSCOPIC REQUIRED? NO; REVIEW REQ? NO; URINE APPEARANCE TURBID (CLEAR); URINE BILIRUBIN NEG (NEG); URINE COLOR YELLOW; URINE EPITHELIAL CELL AUTO >30 /lpf (0-5); URINE NITRITE POS (NEG); URINE PH 5.5 (4.5-7.5); URINE SPECIFIC GRAVITY 1.015 (1.000-1.030); UROBILINOGEN NEG (NEG)
== END | disposition home or self-care (01) ==
LOC: C.LAB 15:13
PROVIDERS: ATTEND Internal Medicine Infectious Disease
DX: N39.0 Urinary tract infection, site not specified (principal)

== ENCOUNTER → 2017-04-24 | Outpatient (CLI) | payer BC, OTHER ==
[~2017-04-24] MED LIST changes: +ATR25 PO; +CEFE2INJ2; -DAPT500I; +DAPT500I IV; +FLUC200T4 PO; +LEVO75TA PO; +METR-162 PO; +MRLP17X PO; -NORT75CA PO; -NRT/25 PO; +RISP1TAB68 PO; +RXC5 PO; -TOPI1CAP3 PO; +VENL37.593 PO; +ZFRI4 IV; +ZOLM1TAB3 PO; +[UNRECOGNIZED DRUG - CODE] IV
[2017-04-24 13:57] LABS: BASO % 0.4 %; BASO ABS # 0.04 K/uL (0-0.2); COMPLETE YES; EOS % 5.9 %; HEMATOCRIT 38.5 % (37-47); IG% 0.3 %; LYMPH % 15.1 %; LYMPH ABS # 1.54 K/uL (1.2-3.4); MEAN CELL VOLUME 94.4 fL (80-100); MEAN CORPUSCULAR HEMOGLOBIN 29.4 pg (25-34); MEAN CORPUSCULAR HGB CONC 31.2 g/dl (32-36); MEAN PLATELET VOLUME 10.3 fL (7.4-10.4); MONO % 6.9 %; NEUT % 71.4 %; PLATELET COUNT 305 K/uL (130-400); RED BLOOD COUNT 4.08 M/uL (4.2-5.4); WHITE BLOOD COUNT 10.18 K/uL (4.8-10.8)
[2017-04-24 14:29] LABS: ALT/SGPT 22 U/L (12-78); BLOOD UREA NITROGEN 14 mg/dl (7-18); BUN/CREATININE RATIO 13.5 (10-20); CALCIUM 8.9 mg/dl (8.5-10.1); CARBON DIOXIDE 21 mmol/L (21-32); CHLORIDE 109 mmol/L (98-107); CREATININE 1.01 mg/dl (0.60-1.20); GLUCOSE 137 mg/dl (70-99); SODIUM 140 mmol/L (136-145)
[2017-04-24 14:36] LABS: ALB/GLOB RATIO 0.7 (0.9-2); ALKALINE PHOSPHATASE 94 U/L (45-117); AST/SGOT 11 U/L (15-37)
== END | disposition home or self-care (01) ==
LOC: C.LABSPEC 13:27
PROVIDERS: ATTEND Internal Medicine Infectious Disease
DX: N39.0 Urinary tract infection, site not specified (principal)

== ENCOUNTER 2017-04-26 14:12 | Inpatient (IN) | payer BC, OTHER ==
[~2017-04-26] VITALS: Ht 119.4 cm; Wt 110.0 kg
[~2017-04-26 14:12] MED LIST changes: -FLUC200T4 PO; -GENTAMYCIN PO; -LEVO50TA6 PO; -METR0.7527 TOP; -MRLP17X PO; -OXYC-57 PO; -RXC5 PO; -ZFRI4 IV; -[UNRECOGNIZED DRUG - CODE] IV
[2017-04-26 15:00] VITALS: BP 124/85; PULSE 76; TEMP 36.5; O2SAT 98
[2017-04-26 16:00] VITALS: BP 109/48; PULSE 85; TEMP 36.5; O2SAT 99; Ht 119.4 cm; Wt 110.0 kg
--- NOTE | 2017-04-26 16:44 | History and Physical ---
History & Physical Date & Time of Service: Apr 26, 2017 at 16:44 Chief Complaint: Infected Thigh Wound Primary Care Physician: Gela Boone M.D. History of Present Illness Source: patient, family 32 y/o F who was sent here as a direct [facility] by Dr. Singh for nonhealing pressure ulcer. Pt apparently fell in March and has been working with [facility] and [place] for an ulceration that occurred during this fall. Pt was started on dapto/cefepime last Monday for a 2 week course to be re -evaluated next to determine if ongoing abx would be needed. She was seen in the [facility] today and it was felt that this ulceration is not healing well, and in fact getting worse with necrotic tissue noted. Dr. Singh is concerned that this may need a surgical debridement. Pt states she has a lot of pain and swelling to the R thigh that has been worsening. Mother states that dressing was changed at the [facility], but that it had been quite bloody prior. Pt states she has started to have auditory hallucinations since starting the abx. She is aware that this may be related to the abx and does not want her psych meds changed as she can be redirected with this. She gets a lot of itching with the abx as well, so she has been taking zyrtec once daily pre-administration and this helps. Pt states she has no other new issues. She has been nauseated, but this is her usual and zofran helps. She has had a good appetite and tolerating PO. Pt denies fever, SOB, chest pain, abd pain, v/c/d. Pt was seen in the ED recently and dx with cellulitis of her R breast. Her port was d/c'd and this is resolving quite well per both pt and her mother. She now has a mid-line. Pt's mother reports that IV abx were delivered to their home this AM. She would like to use these if possible as they have a short shelf life. Pt has a suprapubic catheter in place and no issues with this. Past Medical/Surgical History Medical Problems: (1) Anxiety Status: Chronic (2) Asthma Status: Chronic (3) Bipolar 1 disorder Status: Chronic (4) Depression Status: Chronic (5) Gastroparesis Status: Chronic (6) GERD (gastroesophageal reflux disease) Status: Chronic (7) Hydrocephalus Status: Chronic (8) MRSA (methicillin resistant Staphylococcus aureus) Status: Resolved (9) Osteomyelitis Status: Resolved (10) Spina bifida Permanent Comment: Status: Chronic Family History Family history was reviewed; no changes noted. Social History Smoking Status: Never Smoker Alcohol Use: none Drug Use: none Marital Status: single Housing status: lives with family Occupational Status: disabled Immunizations History of Influenza Vaccine: Unknown History of Tetanus Vaccine?: Unknown History of Pneumococcal: Unknown History of Hepatitis B Vaccine: Unknown 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 Type of MDRO: MRSA Allergies Coded Allergies: Adhesives (Verified Allergy, Intermediate, TAPE- HIVES, 04/24/17) Ceftriaxone (Verified Allergy, Intermediate, rash, 04/24/17) Chlorhexidine (Verified Allergy, Intermediate, RASH, 04/24/17) Ciprofloxacin (Verified Allergy, Intermediate, hives, 04/24/17) Imipenem (Verified Allergy, Intermediate, PT REPORTS ITCHING, 04/24/17) Latex (Verified Allergy, Intermediate, hives, 04/24/17) Levofloxacin (Verified Allergy, Intermediate, rash, 04/24/17) Linezolid (Verified Allergy, Intermediate, rash, 04/24/17) Piperacillin (Verified Allergy, Intermediate, SEVERE RASH, HIVES, 04/24/17 ) Tazobactam (Verified Allergy, Intermediate, SEVERE RASH, HIVES, 04/24/17) Vancomycin (Verified Allergy, Intermediate, rash, 04/24/17) Tobramycin (Verified Allergy, Mild, MILD RASH ON ARM, RED FACE, 04/24/17) IMPROVED AFTER BENADRYL, TAKING REST OF DOSE Amikacin (Verified Allergy, Unknown, PER DR ROBINS,RXN WAS TO ZOSYN NOT AMKrash;hives, 04/24/17) Sulfamethoxazole w/Trimethoprim (Verified Allergy, Unknown, Hives, ) Can be pretreated with 10mg Zytrec 45 min prior to admin Home Medications Scheduled Benztropine Mesylate (Benztropine Mesylate), 1 MG PO BID Cholecalciferol (Vitamin D), 2,000 INTER.UNIT PO BID Clonazepam (Klonopin), 0.5 MG PO HS Cyanocobalamin (Vitamin B-12), 500 MCG PO DAILY Ergotamine Tartrate (Ergomar), 2 MG PO 2XWK Ferrous Sulfate (Ferrous Sulfate), 325 MG PO BID Fluticasone Prop/Salmeterol (Advair Diskus 500/50 60 Dose), 1 PUFF INH BID Gabapentin (Gabapentin), 300 MG PO TID Hydroxyzine HCl (Hydroxyzine Pamoate), 50 MG PO HS Hydroxyzine HCl (Hydroxyzine HCl), 25 MG PO QAM Hyoscyamine Sulfate (Levsin), 0.125 MG PO TID Levothyroxine Sodium (Synthroid), 75 MCG PO DAILY Linaclotide (Linzess), 290 MCG PO QAM [place] Carbonate ([place] Carbonate), 600 MG PO QPM [place] Carbonate Er (Lithobid Ext Rel), 450 MG PO QAM Metronidazole (Flagyl), 500 MG PO TID Montelukast Sod (Montelukast Sodium), 10 MG PO HS Multiple Vitamin (Multivitamin), 1 TAB PO DAILY Nystatin (Topical) (Nystop), 1 APPLN TOP UD Pantoprazole (Protonix), 40 MG PO AMHS Probiotic Product (Probiotic), 1 CAP PO TID Risperidone (Risperidone), 1 MG PO QAM Risperidone (Risperdal), 2 MG PO HS Rivaroxaban (Xarelto), 20 MG PO DAILY Topiramate (Qudexy Xr), 100 MG PO BID Venlafaxine Hcl (Venlafaxine Extended Rel), 37.5 MG PO DAILY Wound Dressings (Hydrofera Blue Foam Dress), 1 EA EXT UD Scheduled PRN Albuterol Sulfate (Proair Respiclick), 2 PUFFS INH Q4-6HRS PRN for SOB/Wheezing Dihydroergotamine Mesylate (Migranal), 1 SPRAY EDIE UD PRN for Migraine Docusate Sodium (Dulcolax Stool Softener), 100 MG PO BID PRN for Constipation Indomethacin (Indomethacin), 25 MG PO 2XWK PRN for Headache Meclizine Hcl (Meclizine Hcl), 25 MG PO TID PRN for Dizziness or Vertigo Ondasetron Odt (Zofran Odt), 4 MG SL Q8 PRN for Nausea Sennosides (Senna Lax), 8.6 MG PO DAILY PRN for Constipation Tramadol HCl (Tramadol HCl), 50 MG PO Q4H PRN for Pain Zolmitriptan (Zomig), 5 MG PO PRN PRN for PRN Miscellaneous Medications Cefepime Hcl (Cefepime) Daptomycin (Daptomycin), 700 MG IV Review of Systems Pertinent positives and negatives reviewed in HPI--all others negative Physical Exam Vital Signs Date Time Temp Pulse Resp B/P (MAP) Pulse Ox O2 Delivery O2 Flow Rate FiO2 04/26/17 15:00 36.5 76 18 124/85 (98) 98 Room Air General Appearance: no apparent distress, + obese Head: normocephalic, atraumatic Eyes: normal inspection, EOMI Respiratory/Chest: normal breath sounds, no respiratory distress Cardiovascular: regular rate, rhythm, no murmur Abdomen/GI: non tender, soft Extremities/Musculoskelatal: + swelling (of R thigh, TTP) Neurologic/Psych: alert, oriented x 3 Skin: warm/dry, + pertinent finding (R posterior thigh with peeling and red skin that is a normal temp to the touch, dressing in place that is clean and dry ) Diagnostics Laboratory Results Results Past 24 Hours Test 04/26/17 16:31 Range/Units Impression Assessment and Plan 32 y/o F who was a direct admission from [facility] for nonhealing and necrotic R posterior thigh wound. Thigh wound: has been working with [facility] and [place] as outpt Continue dapto/cefepime/flagyl for now with ID c/s pending WC c/s pending Gen surg c/s pending CBC, PRP pending LE US pending given redness, swelling, and baseline immobility status Asthma: stable, continue inhalers as at home Anxiety/depression/bipolar: continue home meds Pt reports auditory hallucinations since starting abx She is aware that this is temporary and does not wish to have her baseline psych meds changed as she is on a combination that works well for her generally GERD: continue home meds Other: Reg diet Holding rx DVT proph given likely OR status Level of Care Med/Surg VTE Prophylaxis VTE Risk Assessment Done? Y/N: Yes Risk Level: Low
[2017-04-26] MEDS ORDERED: SENNA 8.6 MG TAB PO PRN (16:45)
[2017-04-26] MEDS ORDERED: INDOMETHACIN 25 MG CAP PO PRN (16:45)
[2017-04-26] MEDS ORDERED: NON-FORMULARY MEDICATION SCH (16:45)
[2017-04-26] MEDS ORDERED: DOCUSATE SODIUM 100 MG CAP PO PRN (16:45)
[2017-04-26] MEDS ORDERED: MECLIZINE HCL 25 MG TAB PO PRN (16:45)
[2017-04-26] MEDS ORDERED: ALBUTEROL HFA 8 GM INHALER INH PRN (16:45)
[2017-04-26] MEDS ORDERED: WOUND DRESSINGS EXT SCH (16:45)
[2017-04-26] MEDS ORDERED: ACETAMINOPHEN 325 MG TAB PO PRN (16:45)
[2017-04-26] MEDS ORDERED: ONDANSETRON INJ 2 MG/ML 2 ML VIAL IV PRN (16:45)
[2017-04-26] MEDS ORDERED: ONDANSETRON 4MG OD TAB SL PRN (16:45)
[2017-04-26] MEDS ORDERED: MAGNESIUM HYDROXIDE SUSP 30 ML UDC PO PRN (16:45)
[2017-04-26 17:06] LABS: HEMATOCRIT 37.5 % (37-47); MEAN CELL VOLUME 92.4 fL (80-100); MEAN CORPUSCULAR HGB CONC 32.5 g/dl (32-36); PLATELET COUNT 266 K/uL (130-400); RED BLOOD COUNT 4.06 M/uL (4.2-5.4); WHITE BLOOD COUNT 10.45 K/uL (4.8-10.8)
[2017-04-26 17:45] LABS: CALCIUM 8.7 mg/dl (8.5-10.1); CREATININE 0.72 mg/dl (0.60-1.20); POTASSIUM 3.2 mmol/L (3.5-5.1)
--- NOTE | 2017-04-26 18:11 | DIAGNOSTIC IMAGING REPORT ---
ULTRASOUND RIGHT LOWER EXTREMITY VENOUS CLINICAL HISTORY: Right thigh pain. COMPARISON STUDY: Right lower extremity venous ultrasound dated 05/09/2016 TECHNIQUE: Real-time, grayscale, and color Doppler sonography of the deep veins of the right lower extremity was performed from the inguinal crease to the calf. Compression and augmentation were utilized. FINDINGS: There is no sonographic evidence of deep venous thrombosis identified in the right lower extremity. The common femoral, superficial femoral, and popliteal veins are patent and normally compressible. The greater saphenous vein and the profunda femoris vein at the junction with the common femoral vein are clear. The visualized infrapopliteal veins are patent noting below-knee amputation. Prominent regular lymph nodes are likely reactive basis and measure up to 9 mm in short axis. IMPRESSION: There is no sonographic evidence of deep venous thrombosis identified in the right lower extremity. Electronically signed by: Devin Dacosta M.D. 04/26/2017 6:09 PM Dictated Date/Time: 04/26/2017 6:08 PM
[2017-04-26] MEDS: HYDROCODONE/ACETAMOPHEN 5/325MG TAB PO PRN (18:32)
[2017-04-26 19:39] VITALS: BP 122/81; PULSE 81; TEMP 36.6; O2SAT 92
[2017-04-26] MEDS ORDERED: NURSING VERBAL MED ORDER ONE (20:15)
[2017-04-26] MEDS: TRAMADOL HCL 50 MG TAB PO PRN (20:20)
[2017-04-26] MEDS: FLUTICASONE/SALMETEROL (ADVAIR) 500/50 INH 14 PUFF INH SCH (20:22)
[2017-04-26] MEDS: ALBUTEROL HFA 8 GM INHALER INH SCH (20:22)
[2017-04-26] MEDS: CHOLECALCIFEROL 1000 INTER.UNIT TAB PO SCH (20:23)
[2017-04-26] MEDS: hydrOXYzine HCL 25 MG TAB PO SCH (20:24)
[2017-04-26] MEDS: FERROUS SULFATE 325 MG TAB PO SCH (20:29)
[2017-04-26] MEDS: LACTOBACILLUS ACIDOPHILUS (FLORANEX) TAB PO SCH (20:29)
[2017-04-26] MEDS: HYOSCYAMINE SULFATE 0.125 MG SL TAB PO SCH (20:29)
[2017-04-26] MEDS: BENZTROPINE MESYLATE 1 MG TAB PO SCH (20:29)
[2017-04-26] MEDS: PANTOprazole SOD 40 MG TAB PO SCH (20:30)
[2017-04-26] MEDS: LITHIUM CARBONATE 300 MG TAB PO SCH (20:30)
[2017-04-26] MEDS: MONTELUKAST SOD 10 MG TAB PO SCH (20:30)
[2017-04-26] MEDS: METRONIDAZOLE 500 MG TAB PO SCH (20:30)
[2017-04-26] MEDS: GABAPENTIN 300 MG CAP PO SCH (20:30)
[2017-04-26] MEDS: RISPERIDONE 1 MG TAB PO SCH (20:30)
[2017-04-26] MEDS: CLONAZEPAM 0.5 MG TAB PO SCH (20:34)
[2017-04-26] MEDS: CEFEPIME IV 2000 MG in DEXTROSE 5% 100ML IV SCH (20:46)
[2017-04-26] MEDS ORDERED: CEFEPIME IV 2,000 MG in SYRINGE 7.5 ML IV SCH (21:00)
[2017-04-26] MEDS ORDERED: CEFEPIME 2 GM VIAL IV SCH (21:00)
[2017-04-26] MEDS ORDERED: FLUTICASONE/SALMETEROL (ADVAIR) 500/50 INH 14 PUFF INH SCH (21:00)
[2017-04-26] MEDS: NYSTATIN POWDER 15GM BTL EXT PRN (21:38)
[2017-04-26 22:58] VITALS: BP 115/70; PULSE 106; TEMP 36.6; O2SAT 94
[2017-04-27] MEDS: LEVOTHYROXINE 75 MCG TAB PO SCH (05:47)
--- NOTE | 2017-04-27 07:22 | Pre-Operative Consultation ---
History General Date of Service: Apr 27, 2017. HPI HPI: The patient is a 32 year old female being seen for a right thigh decubitus ulcer. She is treated in wound clinic for this nonhealing pressure ulcer. The wound occurred in March and has been debrideed and treated with a wound vac, She was started on with a course of dapto/cefepime for a presumed infection. mine if ongoing abx would be needed. She was seen in the wound clinic and necrotic tissue noted. She has a lot of pain associated with the ulcer although she has lost most sensation due to spina bifida and is s/p bilateral BKAs. Historian: patient Procedure Urgency: Acute Risk Assessment Daily beta yolanda use?: No Problem List Medical Problems: (1) Acute mastitis of right breast Status: Acute (2) Acute pyelonephritis Status: Acute (3) Allergic reaction Status: Acute (4) Allergic reaction Status: Acute (5) Asthma with exacerbation Status: Acute (6) Cellulitis of right buttock Status: Acute (7) Chronic headache Status: Acute (8) Chronic UTI (urinary tract infection) Status: Acute (9) Complicated urinary tract infection Status: Acute (10) Dehydration Status: Acute (11) Delusions Status: Acute (12) Drowsiness Status: Acute (13) Failure of outpatient treatment Status: Acute (14) Gabapentin overdose Status: Acute (15) Hypokalemia Status: Acute (16) Hypokalemia Status: Acute (17) Intractable headache Status: Acute (18) Laceration Status: Acute (19) Low back pain Status: Acute (20) Lower abdominal pain Status: Acute (21) Lower abdominal pain Status: Acute (22) Mood disorder Status: Acute (23) Mood disorder Status: Acute (24) Multiple drug resistant organism (MDRO) culture positive Status: Acute (25) Nausea Status: Acute (26) Nausea Status: Acute (27) Paranoia Status: Acute (28) Pelvic pain Status: Acute (29) Right flank pain Status: Acute (30) Right leg pain Status: Acute (31) Self-harming behavior Status: Acute (32) Shunt malfunction Status: Acute (33) Shunt malfunction Status: Acute (34) Suicidal ideation Status: Acute (35) Suicidal ideation Status: Acute (36) Suprapubic pain Status: Acute (37) Urinary tract infection Status: Acute (38) Urinary tract infection Status: Acute (39) Urinary tract infection Status: Acute (40) UTI (urinary tract infection) Status: Acute (41) UTI (urinary tract infection) Status: Acute (42) Weakness Status: Acute Medical & Surgical History Past Medical History: anxiety, asthma, bipolar disorder, depression, GERD, other (spina bifida) Past Surgical History: other (B BKA due to chronic wounds and subsequent osteomyelitis) Family History Family History: no pertinent family hx Social History Hx Tobacco Use In Past Year?: No Smoking Status: Never Smoker Alcohol: none Drug Use: none Marital status: single Housing status: lives with family Occupation status: disabled Immunizations Have You Had Influenza Vaccine: Unknown Have You Had Tetanus Vaccine: Unknown History of Pneumococcal: Unknown History Hepatitis B Vaccine: Unknown History of MDRO History of MDRO?: MRSA Allergies Allergies: Coded Allergies: Adhesives (Verified Allergy, Intermediate, TAPE- HIVES, 04/24/17) Ceftriaxone (Verified Allergy, Intermediate, rash, 04/24/17) Chlorhexidine (Verified Allergy, Intermediate, RASH, 04/24/17) Ciprofloxacin (Verified Allergy, Intermediate, hives, 04/24/17) Imipenem (Verified Allergy, Intermediate, PT REPORTS ITCHING, 04/24/17) Latex (Verified Allergy, Intermediate, hives, 04/24/17) Levofloxacin (Verified Allergy, Intermediate, rash, 04/24/17) Linezolid (Verified Allergy, Intermediate, rash, 04/24/17) Piperacillin (Verified Allergy, Intermediate, SEVERE RASH, HIVES, 04/24/17 ) Tazobactam (Verified Allergy, Intermediate, SEVERE RASH, HIVES, 04/24/17) Vancomycin (Verified Allergy, Intermediate, rash, 04/24/17) Tobramycin (Verified Allergy, Mild, MILD RASH ON ARM, RED FACE, 04/24/17) IMPROVED AFTER BENADRYL, TAKING REST OF DOSE Amikacin (Verified Allergy, Unknown, PER DR ROBINS,RXN WAS TO ZOSYN NOT AMKrash;hives, 04/24/17) Sulfamethoxazole w/Trimethoprim (Verified Allergy, Unknown, Hives, ) Can be pretreated with 10mg Zytrec 45 min prior to admin Medications Current Inpatient Medications Current Inpatient Medications Medications (Trade) Dose Ordered Sig/Brenna Route Start Time Stop Time Status Last Admin Dose Admin Acetaminophen (Tylenol Tab) 650 mg Q4H PRN PO 04/26/17 16:45 05/26/17 16:44 Magnesium Hydroxide (Milk Of Magnesia Susp) 30 ml Q6H PRN PO 04/26/17 16:45 05/26/17 16:44 Ondansetron HCl (Zofran Inj) 4 mg Q6H PRN IV 04/26/17 16:45 05/26/17 16:44 Benztropine Mesylate (Cogentin Tab) 1 mg BID PO 04/26/17 21:00 05/26/17 20:59 04/26/17 20:29 1 MG Clonazepam (Klonopin Tab) 0.5 mg HS PO 04/26/17 21:00 05/26/17 20:59 04/26/17 20:34 0.5 MG Cyanocobalamin (Vitamin B-12 Tab) 500 mcg DAILY PO 04/27/17 09:00 05/27/17 08:59 Docusate Sodium (coLACE CAP) 100 mg BID PRN PO 04/26/17 16:45 05/26/17 16:44 Salmeterol Xinafoate/ Fluticasone (Advair Diskus 500/50 Inh) 1 puff BID INH 04/26/17 21:00 05/26/17 20:59 04/26/17 20:22 1 PUFF Gabapentin (Neurontin Cap) 300 mg TID PO 04/26/17 21:00 05/26/17 20:59 04/26/17 20:30 300 MG Hydroxyzine HCl (Vistaril Tab) 25 mg QAM PO 04/27/17 09:00 05/27/17 08:59 Hyoscyamine Sulfate (Levsin Tab) 0.125 mg TID PO 04/26/17 21:00 05/26/17 20:59 04/26/17 20:29 0.125 MG Indomethacin (Indocin Cap) 25 mg DAILY PRN PO 04/26/17 16:45 05/26/17 16:44 Levothyroxine Sodium (Synthroid Tab) 75 mcg DAILYBB PO 04/27/17 06:00 05/27/17 05:59 04/27/17 05:47 75 MCG [place] Carbonate (Eskalith Cr Tab) 450 mg QAM PO 04/27/17 09:00 05/27/17 08:59 Meclizine HCl (Antivert Tab) 25 mg TID PRN PO 04/26/17 16:45 05/26/17 16:44 Metronidazole (Flagyl Tab) 500 mg TID PO 04/26/17 21:00 05/06/17 20:59 04/26/17 20:30 500 MG Montelukast Sodium (Singulair Tab) 10 mg HS PO 04/26/17 21:00 05/26/17 20:59 04/26/17 20:30 10 MG Multivitamins (Multivitamin Tab) 1 tab DAILY PO 04/27/17 09:00 05/27/17 08:59 Nystatin (Mycostatin Powder) 1 appln UD PRN EXT 04/26/17 16:45 05/26/17 16:44 04/26/17 21:38 1 APPLN Ondansetron HCl (Zofran Odt) 4 mg Q8 PRN SL 04/26/17 16:45 05/26/17 16:44 Pantoprazole Sodium (Protonix Tab) 40 mg AMHS PO 04/26/17 21:00 05/26/17 20:59 04/26/17 20:30 40 MG Risperidone (Risperdal Tab) 1 mg QAM PO 04/27/17 09:00 05/27/17 08:59 Risperidone (Risperdal Tab) 2 mg HS PO 04/26/17 21:00 05/26/17 20:59 04/26/17 20:30 2 MG Rivaroxaban (Xarelto Tab) 20 mg DAILY PO 04/27/17 09:00 05/27/17 08:59 Senna (Senokot Tab) 8.6 mg DAILY PRN PO 04/26/17 16:45 05/26/17 16:44 Tramadol HCl (Ultram Tab) 50 mg Q4H PRN PO 04/26/17 16:45 05/26/17 16:44 04/26/17 20:20 50 MG Venlafaxine HCl (effeXOR EXTENDED REL CAP) 37.5 mg DAILY PO 04/27/17 09:00 05/27/17 08:59 Albuterol (Ventolin Hfa Inhaler) 2 puffs Q4H PRN INH 04/26/17 16:45 05/26/17 16:44 Cholecalciferol (Vitamin D Tab) 2,000 inter.unit BID PO 04/26/17 21:00 05/26/17 20:59 04/26/17 20:23 2,000 INTER.UNIT Miscellaneous Information (Order Awaiting Action) 1 ea QS N/A 04/26/17 16:45 05/26/17 16:44 Miscellaneous Information (Order Awaiting Action) 1 ea QS N/A 04/26/17 16:45 05/26/17 16:44 Ferrous Sulfate (Feosol Tab) 325 mg BID PO 04/26/17 21:00 05/26/17 20:59 04/26/17 20:29 325 MG Hydroxyzine HCl (Vistaril Tab) 50 mg HS PO 04/26/17 21:00 05/26/17 20:59 04/26/17 20:24 50 MG Miscellaneous Information (Order Awaiting Action) 1 ea QS N/A 04/26/17 17:00 05/26/17 16:59 [place] Carbonate ([place] Carbonate Tab) 600 mg QPM PO 04/26/17 21:00 05/26/17 20:59 04/26/17 20:30 600 MG Lactobacillus Acidophilus (Floranex Tab) 1 tab TID PO 04/26/17 21:00 05/26/17 20:59 04/26/17 20:29 1 TAB Miscellaneous Information (Order Awaiting Action) 1 ea QS PO 04/26/17 17:00 05/26/17 16:59 Miscellaneous Information (Order Awaiting Action) 1 ea QS N/A 04/27/17 00:00 05/27/17 00:00 Cetirizine HCl (zyrTEC TAB) 10 mg QAM PO 04/27/17 09:00 05/27/17 08:59 Acetaminophen/ Hydrocodone Bitart (Retsof 5/325 Tab) 1 tab Q6H PRN PO 04/26/17 16:45 05/10/17 16:44 04/26/17 18:32 1 TAB Albuterol (Ventolin Hfa Inhaler) 2 puffs BID INH 04/26/17 21:00 05/26/17 20:59 04/26/17 20:22 2 PUFFS Heparin Sodium (Porcine) (Heparin 10 Unit/ ml 5 ml Flush) 5 ml PRN PRN FLUSH 04/26/17 19:30 05/26/17 19:29 04/26/17 21:54 5 ML Diphenhydramine HCl (Benadryl Cap) 50 mg HS PRN PO 04/26/17 20:15 05/26/17 20:14 04/26/17 20:20 50 MG Daptomycin 700 mg/ Sodium Chloride 64 ml @ 50 mls/hr DAILY@0900 IV 04/27/17 09:00 05/07/17 08:59 Cefepime HCl 2000 mg/Dextrose 112.5 ml @ 100 mls/hr BID IV 04/26/17 21:00 05/06/17 20:59 04/26/17 20:46 100 MLS/HR Miscellaneous Information (Pending Order) 1 ea DAILY@10 N/A 04/27/17 10:00 05/27/17 09:59 Review of Systems Review of Systems Constitutional: denies chills, denies diaphoresis, denies fever, weakness Eyes: reports: no symptoms ENT: reports: no symptoms reported Cardiovascular: denies: chest pain, chest tightness, chest pressure, palpitations Respiratory: denies: cough, short of breath, stridor, cyanosis Gastrointestinal: denies abdominal pain, denies constipation, denies diarrhea, nausea, denies vomiting Genitourinary - Female: reports: no symptoms Musculoskeletal: denies joint pain, denies joint swelling, muscle stiffness Integumentary: other (right thigh chronic ulcer) Neurologic: reports: pre-existing deficit, general weakness Psychiatric: reports: anxiety, depression, auditory hallucinations, denies: alcohol abuse Endocrine: no symptoms Hematologic / Lymphatic: no symptoms Allergic / Immunologic: no symptoms Physical Exam Physical Exam General Appearance: + WD/WN, No distress, No ill appearance Ears, Nose, Throat: + normal ENT inspection Neck: No abnormal inspection, No tracheal deviation, No lymphadenophy, No stiffness, No tenderness Respiratory: No chest tenderness, No accessory muscle use, No decreased breath sounds, No rhonchi, No respiratory distress, No stridor, No wheezing Cardiovascular: No tachycardia, No gallop/S3, No diastolic murmur, No gallop/S4 , No bradycardia, No systolic murmur Abdomen: No rebound, No tenderness, No distension, No hernia, No organomegaly, No guarding Extremities: + deformity (B BKA), + swelling, + other (12 cm right thigh decubitus ulcer with necrotic central portion) Neurologic/Psychiatric: + motor deficit/weakness, + sensory deficit, No decreased LOC, No disorientation Skin Characteristics: No abnormal color, No diaphoresis, No pallor, No jaundice , No rash Diagnostics Labs Labs Results Past 24 Hours Test 04/26/17 16:53 Range/Units White Blood Count 10.45 4.8-10.8 K/uL Red Blood Count 4.06 4.2-5.4 M/uL Hemoglobin 12.2 12.0-16.0 g/dL Hematocrit 37.5 37-47 % Mean Corpuscular Volume 92.4 80-100 fL Mean Corpuscular Hemoglobin 30.0 25-34 pg Mean Corpuscular Hemoglobin Concent 32.5 32-36 g/dl RDW Standard Deviation 57.1 36.4-46.3 fL RDW Coefficient of Variation 16.9 11.5-14.5 % Platelet Count 266 130-400 K/uL Mean Platelet Volume 10.0 7.4-10.4 fL Sodium Level 140 136-145 mmol/L Potassium Level 3.2 3.5-5.1 mmol/L Chloride Level 110 98-107 mmol/L Carbon Dioxide Level 23 21-32 mmol/L Anion Gap 7.0 3-11 mmol/L Blood Urea Nitrogen 17 7-18 mg/dl Creatinine 0.72 0.60-1.20 mg/dl Est Creatinine Clear Calc Drug Dose 96.3 ml/min Estimated GFR () 130.2 Estimated GFR (Non- 112.4 BUN/Creatinine Ratio 23.0 10-20 Random Glucose 114 70-99 mg/dl Calcium Level 8.7 8.5-10.1 mg/dl Impression Assessment and Plan Assessment and Plan Right thigh decubitus ulcer -no active infection obvous -central portion with necrotic tissue that will need to be debrided -con't dressings and off-loading
[2017-04-27] MEDS: HYDROCODONE/ACETAMOPHEN 5/325MG TAB PO PRN ×2 (07:27→14:12)
[2017-04-27] MEDS ORDERED: DAPTOmycin IV 700 MG in SYRINGE 0 ML IV SCH (09:00)
[2017-04-27] MEDS ORDERED: DAPTOmycin 500 MG VIAL IV SCH (09:00)
[2017-04-27] MEDS: FLUTICASONE/SALMETEROL (ADVAIR) 500/50 INH 14 PUFF INH SCH ×2 (09:20→20:25)
[2017-04-27] MEDS: LACTOBACILLUS ACIDOPHILUS (FLORANEX) TAB PO SCH ×3 (09:21→20:29)
[2017-04-27] MEDS: CYANOCOBALAMIN 500 MCG TAB (VIT B-12) PO SCH (09:21)
[2017-04-27] MEDS: HYOSCYAMINE SULFATE 0.125 MG SL TAB PO SCH ×3 (09:22→20:27)
[2017-04-27] MEDS: FERROUS SULFATE 325 MG TAB PO SCH ×2 (09:22→20:26)
[2017-04-27] MEDS: CETIRIZINE HCL 10 MG TAB PO SCH (09:22)
[2017-04-27] MEDS: METRONIDAZOLE 500 MG TAB PO SCH ×2 (09:23→14:13)
[2017-04-27] MEDS: RIVAROXABAN 10 MG TAB PO SCH (09:23)
[2017-04-27] MEDS: BENZTROPINE MESYLATE 1 MG TAB PO SCH ×2 (09:23→20:30)
[2017-04-27] MEDS: RISPERIDONE 1 MG TAB PO SCH ×2 (09:24→20:30)
[2017-04-27] MEDS: LITHIUM CARBONATE 450 MG TABCR PO SCH (09:24)
[2017-04-27] MEDS: GABAPENTIN 300 MG CAP PO SCH ×3 (09:25→20:26)
[2017-04-27] MEDS: PANTOprazole SOD 40 MG TAB PO SCH ×2 (09:25→20:31)
[2017-04-27] MEDS: MULTIVITAMIN TAB PO SCH (09:25)
[2017-04-27] MEDS: CHOLECALCIFEROL 1000 INTER.UNIT TAB PO SCH ×2 (09:26→20:26)
[2017-04-27] MEDS: hydrOXYzine HCL 25 MG TAB PO SCH ×2 (09:26→20:26)
[2017-04-27] MEDS: VENLAFAXINE HCL XR 37.5 MG CAPXR PO SCH (09:27)
[2017-04-27] MEDS: ALBUTEROL HFA 8 GM INHALER INH SCH ×2 (09:27→20:25)
[2017-04-27] MEDS: DAPTOMYCIN IV 500 MG in NSS 50ML IV SCH (09:28)
[2017-04-27] MEDS: CEFEPIME IV 2000 MG in DEXTROSE 5% 100ML IV SCH (09:28)
[2017-04-27] MEDS: TRAMADOL HCL 50 MG TAB PO PRN ×2 (12:02→16:46)
[2017-04-27 15:19] VITALS: BP 125/71; PULSE 95; TEMP 36.6; O2SAT 96
--- NOTE | 2017-04-27 17:53 | Medical Consult ---
Consultation Date of Consultation: Apr 27, 2017. Attending Physician: Mamta Tracy DO Reason for Consultation: Nonhealing left leg wound History of Present Illness 32-year-old female well known to the Infectious Disease service with history of spina bifida, history of recurrent urinary tract infections in the setting of neurogenic bladder and indwelling Meade, severe leg infections leading to bilateral BKA s, who has been [facility] recently for large nonhealing open wound of her right upper leg.Most recent culture was positive for enterococcus faecalis. Patient was started last week on daptomycin and cefepime, apparently has been having hallucinations and itching with medications. She was seen yesterday at the [facility] and was referred for admission for worsening of her leg wound. She has had low-grade fever, no shortness of breath. Currently on daptomycin. Past Medical/Surgical History Medical Problems: (1) Acute mastitis of right breast Status: Acute (2) Acute pyelonephritis Status: Acute (3) Allergic reaction Status: Acute (4) Allergic reaction Status: Acute (5) Asthma with exacerbation Status: Acute (6) Cellulitis of right buttock Status: Acute (7) Chronic headache Status: Acute (8) Chronic UTI (urinary tract infection) Status: Acute (9) Complicated urinary tract infection Status: Acute (10) Dehydration Status: Acute (11) Delusions Status: Acute (12) Drowsiness Status: Acute (13) Failure of outpatient treatment Status: Acute (14) Gabapentin overdose Status: Acute (15) Hypokalemia Status: Acute (16) Hypokalemia Status: Acute (17) Intractable headache Status: Acute (18) Laceration Status: Acute (19) Low back pain Status: Acute (20) Lower abdominal pain Status: Acute (21) Lower abdominal pain Status: Acute (22) Mood disorder Status: Acute (23) Mood disorder Status: Acute (24) Multiple drug resistant organism (MDRO) culture positive Status: Acute (25) Nausea Status: Acute (26) Nausea Status: Acute (27) Paranoia Status: Acute (28) Pelvic pain Status: Acute (29) Right flank pain Status: Acute (30) Right leg pain Status: Acute (31) Self-harming behavior Status: Acute (32) Shunt malfunction Status: Acute (33) Shunt malfunction Status: Acute (34) Suicidal ideation Status: Acute (35) Suicidal ideation Status: Acute (36) Suprapubic pain Status: Acute (37) Urinary tract infection Status: Acute (38) Urinary tract infection Status: Acute (39) Urinary tract infection Status: Acute (40) UTI (urinary tract infection) Status: Acute (41) UTI (urinary tract infection) Status: Acute (42) Weakness Status: Acute Medical Problems: (1) Allergic reaction caused by a drug (2) Anxiety (3) Asthma (4) Asthma exacerbation (5) Bipolar 1 disorder (6) Cellulitis (7) Depression (8) Gastroparesis (9) GERD (gastroesophageal reflux disease) (10) Hydrocephalus (11) Intractable headache (12) Migraines (13) MRSA (methicillin resistant Staphylococcus aureus) (14) Nonhealing nonsurgical wound with necrosis of muscle (15) Osteomyelitis (16) Pulmonary embolism (17) Shunt placement with revision x8 (18) Spina bifida (19) UTI (urinary tract infection) Surgical Problems: (1) S/P BKA (below knee amputation) bilateral Family History Cancer Diabetes mellitus Lung disease Social History Smoking Status: Never Smoker Alcohol Use: none Drug Use: none Marital Status: single Housing Status: lives with family Occupation Status: disabled Allergies Coded Allergies: Adhesives (Verified Allergy, Intermediate, TAPE- HIVES, 04/24/17) Ceftriaxone (Verified Allergy, Intermediate, rash, 04/24/17) Chlorhexidine (Verified Allergy, Intermediate, RASH, 04/24/17) Ciprofloxacin (Verified Allergy, Intermediate, hives, 04/24/17) Imipenem (Verified Allergy, Intermediate, PT REPORTS ITCHING, 04/24/17) Latex (Verified Allergy, Intermediate, hives, 04/24/17) Levofloxacin (Verified Allergy, Intermediate, rash, 04/24/17) Linezolid (Verified Allergy, Intermediate, rash, 04/24/17) Piperacillin (Verified Allergy, Intermediate, SEVERE RASH, HIVES, 04/24/17 ) Tazobactam (Verified Allergy, Intermediate, SEVERE RASH, HIVES, 04/24/17) Vancomycin (Verified Allergy, Intermediate, rash, 04/24/17) Tobramycin (Verified Allergy, Mild, MILD RASH ON ARM, RED FACE, 04/24/17) IMPROVED AFTER BENADRYL, TAKING REST OF DOSE Amikacin (Verified Allergy, Unknown, PER DR ROBINS,RXN WAS TO ZOSYN NOT AMKrash;hives, 04/24/17) Sulfamethoxazole w/Trimethoprim (Verified Allergy, Unknown, Hives, ) Can be pretreated with 10mg Zytrec 45 min prior to admin Current Inpatient Medications Current Inpatient Medications Medications (Trade) Dose Ordered Sig/Brenna Route Start Time Stop Time Status Last Admin Dose Admin Acetaminophen (Tylenol Tab) 650 mg Q4H PRN PO 04/26/17 16:45 05/26/17 16:44 Magnesium Hydroxide (Milk Of Magnesia Susp) 30 ml Q6H PRN PO 04/26/17 16:45 05/26/17 16:44 Ondansetron HCl (Zofran Inj) 4 mg Q6H PRN IV 04/26/17 16:45 05/26/17 16:44 Benztropine Mesylate (Cogentin Tab) 1 mg BID PO 04/26/17 21:00 05/26/17 20:59 04/27/17 09:23 1 MG Clonazepam (Klonopin Tab) 0.5 mg HS PO 04/26/17 21:00 05/26/17 20:59 04/26/17 20:34 0.5 MG Cyanocobalamin (Vitamin B-12 Tab) 500 mcg DAILY PO 04/27/17 09:00 05/27/17 08:59 04/27/17 09:21 500 MCG Docusate Sodium (coLACE CAP) 100 mg BID PRN PO 04/26/17 16:45 05/26/17 16:44 Salmeterol Xinafoate/ Fluticasone (Advair Diskus 500/50 Inh) 1 puff BID INH 04/26/17 21:00 05/26/17 20:59 04/27/17 09:20 1 PUFF Gabapentin (Neurontin Cap) 300 mg TID PO 04/26/17 21:00 05/26/17 20:59 04/27/17 14:09 300 MG Hydroxyzine HCl (Vistaril Tab) 25 mg QAM PO 04/27/17 09:00 05/27/17 08:59 04/27/17 09:26 25 MG Hyoscyamine Sulfate (Levsin Tab) 0.125 mg TID PO 04/26/17 21:00 05/26/17 20:59 04/27/17 14:09 0.125 MG Indomethacin (Indocin Cap) 25 mg DAILY PRN PO 04/26/17 16:45 05/26/17 16:44 Levothyroxine Sodium (Synthroid Tab) 75 mcg DAILYBB PO 04/27/17 06:00 05/27/17 05:59 04/27/17 05:47 75 MCG [place] Carbonate (Eskalith Cr Tab) 450 mg QAM PO 04/27/17 09:00 05/27/17 08:59 04/27/17 09:24 450 MG Meclizine HCl (Antivert Tab) 25 mg TID PRN PO 04/26/17 16:45 05/26/17 16:44 Metronidazole (Flagyl Tab) 500 mg TID PO 04/26/17 21:00 05/06/17 20:59 04/27/17 14:13 500 MG Montelukast Sodium (Singulair Tab) 10 mg HS PO 04/26/17 21:00 05/26/17 20:59 04/26/17 20:30 10 MG Multivitamins (Multivitamin Tab) 1 tab DAILY PO 04/27/17 09:00 05/27/17 08:59 04/27/17 09:25 1 TAB Nystatin (Mycostatin Powder) 1 appln UD PRN EXT 04/26/17 16:45 05/26/17 16:44 04/26/17 21:38 1 APPLN Ondansetron HCl (Zofran Odt) 4 mg Q8 PRN SL 04/26/17 16:45 05/26/17 16:44 04/27/17 09:46 4 MG Pantoprazole Sodium (Protonix Tab) 40 mg AMHS PO 04/26/17 21:00 05/26/17 20:59 04/27/17 09:25 40 MG Risperidone (Risperdal Tab) 1 mg QAM PO 04/27/17 09:00 05/27/17 08:59 04/27/17 09:24 1 MG Risperidone (Risperdal Tab) 2 mg HS PO 04/26/17 21:00 05/26/17 20:59 04/26/17 20:30 2 MG Rivaroxaban (Xarelto Tab) 20 mg DAILY PO 04/27/17 09:00 05/27/17 08:59 04/27/17 09:23 20 MG Senna (Senokot Tab) 8.6 mg DAILY PRN PO 04/26/17 16:45 05/26/17 16:44 04/27/17 09:25 8.6 MG Tramadol HCl (Ultram Tab) 50 mg Q4H PRN PO 04/26/17 16:45 05/26/17 16:44 04/27/17 16:46 50 MG Venlafaxine HCl (effeXOR EXTENDED REL CAP) 37.5 mg DAILY PO 04/27/17 09:00 05/27/17 08:59 04/27/17 09:27 37.5 MG Albuterol (Ventolin Hfa Inhaler) 2 puffs Q4H PRN INH 04/26/17 16:45 05/26/17 16:44 Cholecalciferol (Vitamin D Tab) 2,000 inter.unit BID PO 04/26/17 21:00 05/26/17 20:59 04/27/17 09:26 2,000 INTER.UNIT Miscellaneous Information (Order Awaiting Action) 1 ea QS N/A 04/26/17 16:45 05/26/17 16:44 Miscellaneous Information (Order Awaiting Action) 1 ea QS N/A 04/26/17 16:45 05/26/17 16:44 Ferrous Sulfate (Feosol Tab) 325 mg BID PO 04/26/17 21:00 05/26/17 20:59 04/27/17 09:22 325 MG Hydroxyzine HCl (Vistaril Tab) 50 mg HS PO 04/26/17 21:00 05/26/17 20:59 04/26/17 20:24 50 MG [place] Carbonate ([place] Carbonate Tab) 600 mg QPM PO 04/26/17 21:00 05/26/17 20:59 04/26/17 20:30 600 MG Lactobacillus Acidophilus (Floranex Tab) 1 tab TID PO 04/26/17 21:00 05/26/17 20:59 04/27/17 14:08 1 TAB Miscellaneous Information (Order Awaiting Action) 1 ea QS N/A 04/27/17 00:00 05/27/17 00:00 Cetirizine HCl (zyrTEC TAB) 10 mg QAM PO 04/27/17 09:00 12/23/17 08:59 04/27/17 09:22 10 MG Acetaminophen/ Hydrocodone Bitart (Pratt 5/325 Tab) 1 tab Q6H PRN PO 04/26/17 16:45 05/10/17 16:44 04/27/17 14:12 1 TAB Albuterol (Ventolin Hfa Inhaler) 2 puffs BID INH 04/26/17 21:00 05/26/17 20:59 04/27/17 09:27 2 PUFFS Heparin Sodium (Porcine) (Heparin 10 Unit/ ml 5 ml Flush) 5 ml PRN PRN FLUSH 04/26/17 19:30 05/26/17 19:29 04/27/17 11:28 5 ML Diphenhydramine HCl (Benadryl Cap) 50 mg HS PRN PO 04/26/17 20:15 05/26/17 20:14 04/27/17 09:21 50 MG Daptomycin 700 mg/ Sodium Chloride 64 ml @ 50 mls/hr DAILY@0900 IV 04/27/17 09:00 05/07/17 08:59 04/27/17 09:28 50 MLS/HR Cefepime HCl 2000 mg/Dextrose 112.5 ml @ 100 mls/hr BID IV 04/26/17 21:00 05/06/17 20:59 04/27/17 09:28 100 MLS/HR Miscellaneous Information (Pending Order) 1 ea DAILY@10 N/A 04/27/17 10:00 05/27/17 09:59 04/27/17 09:30 1 EA Non-Formulary Medication (Non-Formulary Patient'S Own Med) 1 ea BID PO 04/27/17 21:00 05/27/17 20:59 Linaclotide (Linzess) 290 mcg DAILYBB PO 04/28/17 06:00 05/28/17 05:59 Review of Systems All systems were reviewed and are negative except as per HPI Physical Exam Date Time Temp Pulse Resp B/P (MAP) Pulse Ox O2 Delivery O2 Flow Rate FiO2 04/27/17 15:19 36.6 95 18 125/71 (89) 96 Room Air 04/27/17 15:10 Room Air 04/27/17 07:35 Room Air 04/26/17 23:30 Room Air 04/26/17 22:58 36.6 106 17 115/70 (85) 94 Room Air 04/26/17 19:39 36.6 81 16 122/81 (95) 92 Room Air General Appearance: WD/WN, no apparent distress Head: normocephalic, atraumatic Eyes: normal inspection, EOMI, sclerae normal ENT: normal ENT inspection, pharynx normal Neck: supple, no adenopathy, thyroid normal, trachea midline Respiratory/Chest: chest non-tender, lungs clear, normal breath sounds, no respiratory distress Cardiovascular: regular rate, rhythm, no gallop, no murmur Abdomen/GI: normal bowel sounds, non tender, soft, no organomegaly Genitourinary - Female: + pertinent finding (Meade catheter) Back: normal inspection, no CVA tenderness Extremities/Musculoskelatal: + inflammation (Right leg), + swelling (Right leg) Neurologic/Psych: alert, oriented x 3 Skin: normal color, no rash, + pertinent finding (Large open wound right posterior thigh with necrotic fat and surrounding erythema) Lymphatic: no adenopathy Laboratory Results White count 10,450 Creat 0.72 Assessment & Plan Worsening right leg infection with large nonhealing ulcer in patient with multiple antibiotic allergies. Given potential reaction to cefepime, patient will be treated with combination of daptomycin, aztreonam, metronidazole, pending further culture results. Surgery following for need for further debridement. Will follow.
--- NOTE | 2017-04-27 18:35 | Progress Note ---
Subjective Date of Service: Apr 27, 2017. Subjective Pt evaluation today including: conversation w/ patient, conversation w/ family , physical exam, chart review, lab review, review of inpatient medication list pain reasonable no f/c/s for OR tomorrow notes anxiety - requests meds institution director to OR seems reasonable Problem List Medical Problems: (1) Acute mastitis of right breast Status: Acute (2) Acute pyelonephritis Status: Acute (3) Allergic reaction Status: Acute (4) Allergic reaction Status: Acute (5) Asthma with exacerbation Status: Acute (6) Cellulitis of right buttock Status: Acute (7) Chronic headache Status: Acute (8) Chronic UTI (urinary tract infection) Status: Acute (9) Complicated urinary tract infection Status: Acute (10) Dehydration Status: Acute (11) Delusions Status: Acute (12) Drowsiness Status: Acute (13) Failure of outpatient treatment Status: Acute (14) Gabapentin overdose Status: Acute (15) Hypokalemia Status: Acute (16) Hypokalemia Status: Acute (17) Intractable headache Status: Acute (18) Laceration Status: Acute (19) Low back pain Status: Acute (20) Lower abdominal pain Status: Acute (21) Lower abdominal pain Status: Acute (22) Mood disorder Status: Acute (23) Mood disorder Status: Acute (24) Multiple drug resistant organism (MDRO) culture positive Status: Acute (25) Nausea Status: Acute (26) Nausea Status: Acute (27) Paranoia Status: Acute (28) Pelvic pain Status: Acute (29) Right flank pain Status: Acute (30) Right leg pain Status: Acute (31) Self-harming behavior Status: Acute (32) Shunt malfunction Status: Acute (33) Shunt malfunction Status: Acute (34) Suicidal ideation Status: Acute (35) Suicidal ideation Status: Acute (36) Suprapubic pain Status: Acute (37) Urinary tract infection Status: Acute (38) Urinary tract infection Status: Acute (39) Urinary tract infection Status: Acute (40) UTI (urinary tract infection) Status: Acute (41) UTI (urinary tract infection) Status: Acute (42) Weakness Status: Acute Review of Systems all other ROS otherwise negative except for as above Objective Vital Signs Date Time Temp Pulse Resp B/P (MAP) Pulse Ox O2 Delivery O2 Flow Rate FiO2 04/27/17 15:19 36.6 95 18 125/71 (89) 96 Room Air 04/27/17 15:10 Room Air 04/27/17 07:35 Room Air 04/26/17 23:30 Room Air 04/26/17 22:58 36.6 106 17 115/70 (85) 94 Room Air 04/26/17 19:39 36.6 81 16 122/81 (95) 92 Room Air Physical Exam General Appearance: no apparent distress Eyes: EOMI ENT: hearing grossly normal Neck: trachea midline Respiratory/Chest: no respiratory distress, no accessory muscle use Extremities: + pertinent finding (absent BKA b/l, no erythema) Neurologic/Psychiatric: 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
[2017-04-27] MEDS: HYDROmorphone INJ 0.5 MG/0.5 ML SYR IV PRN (18:41)
[2017-04-27] MEDS: AZTREONAM IV 2,000 MG in DEXTROSE 5% 100ML 100 ML IV SCH (20:23)
[2017-04-27] MEDS: CLONAZEPAM 0.5 MG TAB PO SCH (20:26)
[2017-04-27] MEDS: MONTELUKAST SOD 10 MG TAB PO SCH (20:27)
[2017-04-27] MEDS: LITHIUM CARBONATE 300 MG TAB PO SCH (20:30)
[2017-04-27] MEDS: TOPIRAMATE 100 MG PO SCH (20:31)
[2017-04-27] MEDS: NYSTATIN POWDER 15GM BTL EXT PRN (21:01)
[2017-04-27] MEDS: METRONIDAZOLE / NSS 500 MG in PREMIXED NSS 100 ML IV SCH (21:58)
[2017-04-27 23:00] VITALS: BP 111/72; PULSE 100; TEMP 36.6; O2SAT 94
[2017-04-28] MEDS: AZTREONAM IV 2,000 MG in DEXTROSE 5% 100ML 100 ML IV SCH ×2 (04:06→11:46)
[2017-04-28] MEDS: METRONIDAZOLE / NSS 500 MG in PREMIXED NSS 100 ML IV SCH (05:42)
[2017-04-28] MEDS: LINACLOTIDE 290 MCG CAP PO SCH ×2 (05:43→05:46)
[2017-04-28] MEDS: LEVOTHYROXINE 75 MCG TAB PO SCH ×2 (05:43→05:46)
[2017-04-28] MEDS ORDERED: LINACLOTIDE 290 MCG CAP PO SCH (06:00)
[2017-04-28] MEDS: ALBUTEROL HFA 8 GM INHALER INH SCH (07:28)
[2017-04-28] MEDS: FLUTICASONE/SALMETEROL (ADVAIR) 500/50 INH 14 PUFF INH SCH (07:28)
[2017-04-28 07:33] VITALS: BP 111/66; PULSE 94; TEMP 36.9; O2SAT 97
[2017-04-28] MEDS: HYDROmorphone INJ 0.5 MG/0.5 ML SYR IV PRN (08:52)
[2017-04-28] MEDS ORDERED: LIDOCAINE HCL 1% 20 ML VIAL ONE (09:00)
[2017-04-28] MEDS ORDERED: LORAZEPAM INJ 0.5 MG in SYRINGE 0.25 ML IV SCH (09:00)
[2017-04-28] MEDS: DAPTOMYCIN IV 500 MG in NSS 50ML IV SCH (09:35)
[2017-04-28] MEDS: VENLAFAXINE HCL XR 37.5 MG CAPXR PO SCH (09:36)
[2017-04-28] MEDS: CYANOCOBALAMIN 500 MCG TAB (VIT B-12) PO SCH (09:37)
[2017-04-28] MEDS: HYOSCYAMINE SULFATE 0.125 MG SL TAB PO SCH (09:37)
[2017-04-28] MEDS: CHOLECALCIFEROL 1000 INTER.UNIT TAB PO SCH (09:37)
--- NOTE | 2017-04-28 09:37 | Surgery Progress Note ---
Surgery Progress Note Date of Service Apr 28, 2017. Subjective pt was admitted to hospital for debridement right thigh ulcer, pt is stable, no C/O. pt denies fever, Objective Vital Signs: Date Time Temp Pulse Resp B/P (MAP) Pulse Ox O2 Delivery O2 Flow Rate FiO2 04/28/17 07:40 Room Air 04/28/17 07:33 36.9 94 18 111/66 (81) 97 Room Air 04/27/17 23:30 Room Air 04/27/17 23:00 36.6 100 17 111/72 (85) 94 Room Air 04/27/17 19:30 Room Air 04/27/17 15:19 36.6 95 18 125/71 (89) 96 Room Air 04/27/17 15:10 Room Air General Appearance: WD/WN, no apparent distress Head: normocephalic Neck: supple, no JVD Respiratory/Chest: chest non-tender, lungs clear Cardiovascular: regular rate, rhythm, no edema Abdomen: normal bowel sounds, non tender, non distended Extremities: non-tender (bilt BKA, [id number] chronic ulcer on right thigh, some necrotic tissue on [place], ) Assessment & Plan Assessment: pt is a 32 years old female who was admitted to hospital for debridement right thigh ulcer, base on H/P, I recommend to do debridement right thigh ulcer at bedside, to avoid general anesthesia risks, D/W benefits, risks and alternatives of the procedure with pt and her parents, the risks- infection , bleeding, they understood, they agree with the plan, under local anesthesia, the debridement right thigh ulcer done, pt tolerated the procedure well, the instruction of post-op care was given, wet to dry change dressing once a day, F/U wound care on Monday for wound vac, they understood, I answered all questions, pt can be D/C home today, please call me any questions,
[2017-04-28] MEDS: PANTOprazole SOD 40 MG TAB PO SCH (09:38)
[2017-04-28] MEDS: CETIRIZINE HCL 10 MG TAB PO SCH (09:38)
[2017-04-28] MEDS: BENZTROPINE MESYLATE 1 MG TAB PO SCH (09:38)
[2017-04-28] MEDS: MULTIVITAMIN TAB PO SCH (09:38)
[2017-04-28] MEDS: RISPERIDONE 1 MG TAB PO SCH (09:39)
[2017-04-28] MEDS: RIVAROXABAN 10 MG TAB PO SCH (09:39)
[2017-04-28] MEDS: FERROUS SULFATE 325 MG TAB PO SCH (09:40)
[2017-04-28] MEDS: GABAPENTIN 300 MG CAP PO SCH (09:40)
[2017-04-28] MEDS: hydrOXYzine HCL 25 MG TAB PO SCH (09:40)
[2017-04-28] MEDS: LITHIUM CARBONATE 450 MG TABCR PO SCH (09:40)
[2017-04-28] MEDS: LACTOBACILLUS ACIDOPHILUS (FLORANEX) TAB PO SCH (09:41)
[2017-04-28] MEDS: TOPIRAMATE 100 MG PO SCH (09:41)
[2017-04-28] MEDS ORDERED: NURSING VERBAL MED ORDER ONE (10:00)
--- NOTE | 2017-04-28 10:28 | OPERATIVE REPORT ---
DATE OF OPERATION: 04/28/2017 PREOPERATIVE DIAGNOSIS: Right thigh chronic ulcer. POSTOPERATIVE DIAGNOSIS: Same. PROCEDURE: Debridement right thigh chronic ulcer at the bedside. SURGEON: Dr. Selene Pacheco. ANESTHESIA: Local. ESTIMATED BLOOD LOSS: About 0.5 mL. FINDINGS: Chronic ulcer. COMPLICATIONS: None. INDICATIONS FOR THE PROCEDURE: This is a 32-year-old female who was admitted to hospital for debridement of right thigh chronic ulcer. The patient developed an ulcer last month and patient required to do the debridement based on the chronic tissue on the center of the ulcer. I did talk to the patient and the patient's parents about the benefit and risk, alternate procedure. I indicated the risks may include but not limited such as bleeding and infection. They understand. The patient's parents signed informed consent and I answered all questions. DETAILS OF PROCEDURE: We did the procedure at the bedside, the patient's area on the right thigh was prepped and draped in routine sterile fashion. After a timeout mean we reexamined the wound showing the wound is 12 x 10 cm size and deep to the muscle layer. There was some necrosis tissues on the center so we used 1% lidocaine infiltrate around the thigh tissue and then I used sharp scissors remove the necrosis type tissue. Hemostasis obtained. Also we send the wound culture and then we put the dressing on. The patient tolerated the procedure well. After the procedure, I gave patient and patient's parents about the postop care, they understand. I attest to the content of the Intraoperative Record and any orders documented therein. Any exception s are noted below.
[2017-04-28] MEDS ORDERED: [UNRECOGNIZED DRUG - CODE] IV (11:22)
[2017-04-28] MEDS ORDERED: RXC5 PO (11:22)
--- NOTE | 2017-04-28 11:27 | Discharge Instructions ---
Discharge Instructions Date of Service Apr 28, 2017. Admission Reason for Admission: Infected Thigh Wound Discharge Discharge Diagnosis / Problem: infected thigh wound, improving Discharge Goals Goal(s): Diagnostic testing, Therapeutic intervention Activity Recommendations Activity Limitations: resume your previous activity . Instructions / Follow-Up Instructions / Follow-Up there is only one major change to your antibiotics: we're stopping the cefepime , and adding instead aztreonam 2 grams IV every eight hours - presumably for two weeks (total duration to be determined by Dr Sauceda in follow up). we'll have you continue the daptomycin and flagyl as you were taking before there is also one change to pain medications - we'll give a trial of oxycodone instead of tramadol or hydrocodone. you can take a dose up to every 6 hours -- one pill for moderate pain, two for severe. obviously don't take it along with the tramadol or hydrocodone you previously had -- the risks of oversedation would be fairly large. Current Hospital Diet Patient's current hospital diet: Regular Diet Discharge Diet Recommended Diet: Regular Diet Pending Studies Studies pending at discharge: no Laboratory Results Hemoglobin A1c Test 03/17/17 10:40 Range/Units Estimated Average Glucose 100 mg/dl Hemoglobin A1c 5.1 4.5-5.6 % Lipid Panel Test 03/17/17 10:40 Range/Units Triglycerides Level 161 H 0-150 mg/dl Cholesterol Level 207 H 0-200 mg/dl HDL Cholesterol 51 mg/dl Cholesterol/HDL Ratio 4.1 LDL Cholesterol, Calculated 124 mg/dl Medical Emergencies . Who to Call and When: Medical Emergencies: If at any time you feel your situation is an emergency, please call 911 immediately. . Non-Emergent Contact Non-Emergency issues call your: Primary Care Provider . . "Provider Documentation" section prepared by Paul Cabrales. . VTE Core Measure Inpt VTE Proph given/why not?: Other Anticoagulation [place] Drug Monitoring Program Search Results: patient reviewed within database, no issues identified
[2017-04-28 12:33] VITALS: BP 111/66; PULSE 94; TEMP 36.9; O2SAT 97
--- NOTE | 2017-04-28 17:48 | Discharge Summary ---
Discharge Summary Date of Service Apr 28, 2017. Discharge Summary Admission Date: Apr 26, 2017 at 16:17 Discharge Date: Apr 28, 2017 Discharge Disposition: Home with services Principal Diagnosis: infected thigh wound Immunizations: Have You Had Influenza Vaccine: Unknown History of Tetanus Vaccine?: Unknown History of Pneumococcal: Unknown History of Hepatitis B Vaccine: Unknown Procedures: DICTATED BY: Selene Pacheco MD DATE OF OPERATION: 04/28/2017 PREOPERATIVE DIAGNOSIS: Right thigh chronic ulcer. POSTOPERATIVE DIAGNOSIS: Same. PROCEDURE: Debridement right thigh chronic ulcer at the bedside. SURGEON: Dr. Selene Pacheco. ANESTHESIA: Local. ESTIMATED BLOOD LOSS: About 0.5 mL. FINDINGS: Chronic ulcer. COMPLICATIONS: None. INDICATIONS FOR THE PROCEDURE: This is a 32-year-old female who was admitted to hospital for debridement of right thigh chronic ulcer. The patient developed an ulcer last month and patient required to do the debridement based on the chronic tissue on the center of the ulcer. I did talk to the patient and the patient's parents about the benefit and risk, alternate procedure. I indicated the risks may include but not limited such as bleeding and infection. They understand. The patient's parents signed informed consent and I answered all questions. DETAILS OF PROCEDURE: We did the procedure at the bedside, the patient's area on the right thigh was prepped and draped in routine sterile fashion. After a timeout mean we reexamined the wound showing the wound is 12 x 10 cm size and deep to the muscle layer. There was some necrosis tissues on the center so we used 1% lidocaine infiltrate around the thigh tissue and then I used sharp scissors remove the necrosis type tissue. Hemostasis obtained. Also we send the wound culture and then we put the dressing on. The patient tolerated the procedure well. After the procedure, I gave patient and patient's parents about the postop care, they understand. I attest to the content of the Intraoperative Record and any orders documented therein. Any exceptions are noted below. Dictated: 04/28/17 0943 Transcribed: 04/28/17 1027 <Electronically signed by Selene Pacheco MD> Signed: 04/28/17 1029 ES Selene Pacheco MD Consultations: general surgery ID Medication Reconciliation New Medications: Aztreonam (Aztreonam) 2 Gm Inj 2 GM IV Q8 for 14 Days Oxycodone HCl (Oxycodone HCl) 5 Mg Tab 1 TAB PO QID PRN for Pain, #30 TAB take 1 pill for moderate pain, 2 for severe pain do not take with tramadol or hydrocodone Continued Medications: Albuterol Sulfate (Proair Respiclick) 108 Mcg/Act Aer 2 PUFFS INH Q4-6HRS PRN for SOB/Wheezing Benztropine Mesylate (Benztropine Mesylate) 1 Mg Tab 1 MG PO BID Cholecalciferol (Vitamin D) 2,000 Unit Cap 2000 INTER.UNIT PO BID Clonazepam (Klonopin) 0.5 Mg Tab 0.5 MG PO HS Cyanocobalamin (Vitamin B-12) 500 Mcg Tab 500 MCG PO DAILY Daptomycin (Daptomycin) 500 Mg Inj 700 MG IV Dihydroergotamine Mesylate (Migranal) 4 Mg/Ml Drewsey 1 SPRAY EDIE UD PRN for Migraine ONE SPRAY IN EACH NOSTRIL, REPEAT DOSE AFTER 15 MINUTES IF NEEDED. MAXIMUM 2 DOSES IN 24 HOURS AND 4 DOSES PER 7 DAYS. Docusate Sodium (Dulcolax Stool Softener) 100 Mg Cap 100 MG PO BID PRN for Constipation Ergotamine Tartrate (Ergomar) 2 Mg Sub 2 MG PO 2XWK Ferrous Sulfate (Ferrous Sulfate) 325 Mg Tab 325 MG PO BID Fluticasone Prop/Salmeterol (Advair Diskus 500/50 60 Dose) 1 Ea Aerp 1 PUFF INH BID, INHALER Gabapentin (Gabapentin) 300 Mg Cap 300 MG PO TID Hydroxyzine HCl (Hydroxyzine Pamoate) 25 Mg Tab 50 MG PO HS Hydroxyzine HCl (Hydroxyzine HCl) 25 Mg Tab 25 MG PO QAM Hyoscyamine Sulfate (Levsin) 0.125 Mg Tab 0.125 MG PO TID Indomethacin (Indomethacin) 25 Mg Cap 25 MG PO 2XWK PRN for Headache TAKE THIS MEDICATION WITH FOOD Levothyroxine Sodium (Synthroid) 75 Mcg Tab 75 MCG PO DAILY 1/2 HOUR BEFORE BREAKFAST Linaclotide (Linzess) 290 Mcg Cap 290 MCG PO QAM Hiddenite Carbonate (Hiddenite Carbonate) 600 Mg Cap 600 MG PO QPM, CAP TAKE THIS MEDICATION WITH EVENING MEAL Hidden[place] Carbonate Er (Lithobid Ext Rel) 450 Mg Tab 450 MG PO QAM Meclizine Hcl (Meclizine Hcl) 25 Mg Tab 25 MG PO TID PRN for Dizziness or Vertigo, TAB Metronidazole (Flagyl) 500 Mg Tab 500 MG PO TID for 30 Days, #90 TAB 2 Refills Montelukast Sod (Montelukast Sodium) 10 Mg Tab 10 MG PO HS Multiple Vitamin (Multivitamin) 1 Tab Tab 1 TAB PO DAILY, TAB Nystatin (Topical) (Nystop) 100,000 Unit/Gm Pow 1 APPLN TOP UD Ondasetron Odt (Zofran Odt) 4 Mg Tab 4 MG SL Q8 PRN for Nausea, TAB Pantoprazole (Protonix) 40 Mg Tab 40 MG PO AMHS TAKE THIS MEDICATION ONCE DAILY 30 MINUTES BEFORE BREALFAST Probiotic Product (Probiotic) 1 Cap Cap 1 CAP PO TID Risperidone (Risperidone) 1 Mg Tab 1 MG PO QAM Risperidone (Risperdal) 1 Mg Tab 2 MG PO HS TWO 1 MG TABLETS Rivaroxaban (Xarelto) 20 Mg Tab 20 MG PO DAILY, TAB Sennosides (Senna Lax) 8.6 Mg Tab 8.6 MG PO DAILY PRN for Constipation Topiramate (Qudexy Xr) 100 Mg Cap 100 MG PO BID Venlafaxine Hcl (Venlafaxine Extended Rel) 37.5 Mg Cap 37.5 MG PO DAILY STARTED 04/12/17 Wound Dressings (Hydrofera Blue Foam Dress) 1 Pad Pad 1 EA EXT UD 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 Zolmitriptan (Zomig) 5 Mg Tab 5 MG PO PRN PRN for PRN Discontinued Medications: Cefepime Hcl (Cefepime) 2 Gm Inj Tramadol HCl (Tramadol HCl) 50 Mg Tab 50 MG PO Q4H PRN for Pain Discharge Exam Physical Exam: General Appearance: no apparent distress Eyes: EOMI ENT: hearing grossly normal Neck: trachea midline Respiratory/Chest: no respiratory distress, no accessory muscle use 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 Discharge Instructions Please refer to the electronic Patient Visit Report (Discharge Instructions) for additional information. Additional Copies To Sourav Sauceda MD
== END 2017-04-28 14:11 | disposition home health service (06) | DRG 580 ==
LOC: C.MSW 16:17
PROVIDERS: ADMIT Family Medicine; ATTEND Family Medicine
PROC: 0KBQ0ZZ Excision of Right Upper Leg Muscle, Open Approach (ICD-10-PCS; principal; 2017-04-28)
DX: L89.899 Pressure ulcer of other site, unspecified stage (principal); R44.3 Hallucinations, unspecified; F31.9 Bipolar disorder, unspecified; K21.9 Gastro-esophageal reflux disease without esophagitis; J45.909 Unspecified asthma, uncomplicated; Q05.9 Spina bifida, unspecified; N31.9 Neuromuscular dysfunction of bladder, unspecified; L29.9 Pruritus, unspecified; T36.95XA Adverse effect of unspecified systemic antibiotic, initial encounter; Z79.01 Long term (current) use of anticoagulants; Z79.2 Long term (current) use of antibiotics; Z79.899 Other long term (current) drug therapy; Z88.1 Allergy status to other antibiotic agents; Z88.2 Allergy status to sulfonamides; Z89.511 Acquired absence of right leg below knee; Z89.512 Acquired absence of left leg below knee; Z91.040 Latex allergy status

== ENCOUNTER → 2017-05-01 | Outpatient (CLI) | payer BC, OTHER ==
[~2017-05-01] MED LIST changes: +AMOX500C3 PO; +AMOX875T PO; +CEFE1INJ3 IV; -CEFE2INJ2; +CEFE2INJ2 IV; +CEFT600I IV; +CETI10TA84 PO; -CLON0.5T3 PO; +CRFL PO; +DIHY1INJ2 INJ; +DIPH25CA5 PO; +DOCU-94 PO; +DOXY-300 PO; +EFF/375 PO; +EFFSR150 PO; +EFFSR75 PO; +FAMO40TA6 PO; +FLUC100T4 PO; +FLUC200T4 PO; +FNTTP50 TD; +GABA-1219 PO; -GABA1CAP4 PO; +KLN/5 PO; +LEVO75TA5 PO; +LEVO88TA3 PO; +MCRK/20 PO; +MENTOIN TOP; +MENTPOW4 TOP; +METO-157 PO; +MGRIN; +MRLP17X PO; +MTR500 PO; +MXT150 PO; +NALT1TAB14 PO; +OXYC-609 PO; +PANT40TA2 PO; +POLY335019 PO; +POTA-639 PO; +POTA-65 PO; +PRENTAB26 PO; +RISP2TAB22 PO; +RISP3TAB12 PO; +RSP2 PO; +RXC5 PO; +SENN-61 PO; +TOBRAMYCIN; +TRAZ50TA35 PO; -ULT50 PO; +VENL150C2 PO; -WOUN1PAD EXT; +XPNINS NEB; +XRL20 PO; +ZFRI4 IV; +ZYR10 PO; +[UNRECOGNIZED DRUG - CODE]; +[UNRECOGNIZED DRUG - CODE] EXT; +[UNRECOGNIZED DRUG - CODE] IV; +[UNRECOGNIZED DRUG - CODE] IV; +[UNRECOGNIZED DRUG - CODE] IV; +[UNRECOGNIZED DRUG - CODE] PO; +[UNRECOGNIZED DRUG - CODE] TOP
[2017-05-01 14:23] LABS: HEMATOCRIT 37.8 % (37-47); HEMOGLOBIN 11.8 g/dL (12.0-16.0); MEAN CELL VOLUME 95.5 fL (80-100); MEAN CORPUSCULAR HEMOGLOBIN 29.8 pg (25-34); MEAN CORPUSCULAR HGB CONC 31.2 g/dl (32-36); MEAN PLATELET VOLUME 10.3 fL (7.4-10.4); PLATELET COUNT 278 K/uL (130-400); RED CELL DISTRIBUTION WIDTH CV 17.5 % (11.5-14.5); RED CELL DISTRIBUTION WIDTH SD 60.6 fL (36.4-46.3); WHITE BLOOD COUNT 8.65 K/uL (4.8-10.8)
[2017-05-01 14:33] LABS: ALBUMIN 2.7 gm/dl (3.4-5.0); ALT/SGPT 22 U/L (12-78); BLOOD UREA NITROGEN 13 mg/dl (7-18); CALCIUM 8.6 mg/dl (8.5-10.1); CARBON DIOXIDE 23 mmol/L (21-32); GLUCOSE 107 mg/dl (70-99); SODIUM 142 mmol/L (136-145)
[2017-05-01 14:36] LABS: ALKALINE PHOSPHATASE 86 U/L (45-117); AST/SGOT 16 U/L (15-37); TOTAL PROTEIN 6.8 gm/dl (6.4-8.2)
[2017-05-01 14:49] LABS: BASO % 0.8 %; BASO ABS # 0.07 K/uL (0-0.2); EOS % 5.9 %; EOS ABS # 0.51 K/uL (0-0.5); IG# 0.02 K/uL (0.00-0.02); LYMPH % 26.6 %; MONO % 6.6 %; MONO ABS # 0.57 K/uL (0.11-0.59); NEUT % 59.9 %; NEUT ABS # 5.18 K/uL (1.4-6.5)
== END | disposition home or self-care (01) ==
LOC: C.LABSPEC 13:59
PROVIDERS: ATTEND Internal Medicine Infectious Disease
DX: N39.0 Urinary tract infection, site not specified (principal)

== ENCOUNTER 2017-05-04 15:23 | Inpatient (IN) | payer BC, OTHER ==
[~2017-05-04] VITALS: Ht 119.4 cm; Wt 110.0 kg
[~2017-05-04 15:23] MED LIST changes: -ADVIN50/60 INH; -ALBU18002 INH; -AMOX500C3 PO; -AMOX875T PO; -ATR25 PO; -BENZ-88 PO; -CEFE1INJ3 IV; -CEFE2INJ2 IV; -CEFT600I IV; -CETI10TA84 PO; -CHOL200010 PO; -CRFL PO; -DIHY1INJ2 INJ; -DIPH25CA5 PO; -DOCU-105 PO; -DOCU-94 PO; -DOXY-300 PO; -EFF/375 PO; -EFFSR150 PO; -EFFSR75 PO; -FAMO40TA6 PO; -FERR1TAB62 PO; -FLUC100T4 PO; -FLUC200T4 PO; -FNTTP50 TD; -GABA-1219 PO; -HYOS1TAB PO; -INDO1CAP34 PO; -KLN/5 PO; -LEVO75TA5 PO; -LEVO88TA3 PO; -LINA1CAP2 PO; -LITH1TAB PO; -LITH600C PO; -MCRK/20 PO; -MECL1TAB42 PO; -MENTOIN TOP; -MENTPOW4 TOP; -METO-157 PO; -MGRIN; -MGRSP NAE; -MISCCAP80 PO; -MRLP17X PO; -MTR500 PO; -MULTTAB58 PO; -MXT150 PO; -NALT1TAB14 PO; -NYST100010 TOP; -ONDA4TAB10 SL; -OXYC-609 PO; -PANT40TA2 PO; -POLY335019 PO; -POTA-639 PO; -POTA-65 PO; -PRENTAB26 PO; -RISP2TAB22 PO; -RISP3TAB12 PO; -RSP1 PO; -RSP2 PO; -SENN-61 PO; -SNG10 PO; -TOBRAMYCIN; -TOPI1CAP12 PO; -TRAZ50TA35 PO; -VENL150C2 PO; -VST25HP PO; -VTMB12 PO; -XPNINS NEB; -XRL20 PO; -ZFRI4 IV; -ZOLM1TAB3 PO; -ZYR10 PO; -[UNRECOGNIZED DRUG - CODE]; -[UNRECOGNIZED DRUG - CODE] EXT; -[UNRECOGNIZED DRUG - CODE] IV; -[UNRECOGNIZED DRUG - CODE] IV; -[UNRECOGNIZED DRUG - CODE] PO; -[UNRECOGNIZED DRUG - CODE] PO; -[UNRECOGNIZED DRUG - CODE] TOP
[2017-05-04 16:00] VITALS: BP 132/82; PULSE 93; TEMP 36.5; O2SAT 99; Ht 119.4 cm; Wt 110.0 kg
[2017-05-04] MEDS ORDERED: MECLIZINE HCL 25 MG TAB PO PRN (16:45)
[2017-05-04] MEDS ORDERED: DOCUSATE SODIUM 100 MG CAP PO PRN (16:45)
[2017-05-04] MEDS ORDERED: INDOMETHACIN 25 MG CAP PO PRN (16:45)
[2017-05-04] MEDS ORDERED: SENNA 8.6 MG TAB PO PRN (16:45)
--- NOTE | 2017-05-04 16:57 | History and Physical ---
History & Physical Date & Time of Service: May 04, 2017 at 16:34 Chief Complaint: Left Thigh Wound Primary Care Physician: Gela Boone M.D. 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 Multiple recent admission - most recently due to nonhealing ulcer on her R hip with associated cellulitis. She had undergone debridement and is currently followed at the wound care clinic. The pt was evaluated at the clinic today and sent into the ER due to worsening of her wound and associated cellulitis. She has not complained of fevers or rigors. She does have excessive pain at the site. She is on an extensive antibiotic regimen including Daptomycin, Flagyl, Aztreonam. A recent wound culture 05/02 is growing Corynebacterium - sensitivities are not yet available. Prior wound cultures had grown Enterococcus Faecalis which was pansensitive, however, she has multiple antibiotic allergies. 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 PHOTOGRAPHER shunt - multiple revisions Family History Cancer Diabetes mellitus Lung disease Social History Smoking Status: Never Smoker Drug Use: none Marital Status: single Housing status: lives with family Occupational Status: disabled Immunizations History of Influenza Vaccine: Unknown History of Tetanus Vaccine?: Unknown History of Pneumococcal: Unknown History of Hepatitis B Vaccine: Unknown 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 Type of MDRO: MRSA, other Allergies Coded Allergies: Adhesives (Verified Allergy, Intermediate, TAPE- HIVES, 04/24/17) Ceftriaxone (Verified Allergy, Intermediate, rash, 04/24/17) Chlorhexidine (Verified Allergy, Intermediate, RASH, 04/24/17) Ciprofloxacin (Verified Allergy, Intermediate, hives, 04/24/17) Imipenem (Verified Allergy, Intermediate, PT REPORTS ITCHING, 04/24/17) Latex (Verified Allergy, Intermediate, hives, 04/24/17) Levofloxacin (Verified Allergy, Intermediate, rash, 04/24/17) Linezolid (Verified Allergy, Intermediate, rash, 04/24/17) Piperacillin (Verified Allergy, Intermediate, SEVERE RASH, HIVES, 04/24/17 ) Tazobactam (Verified Allergy, Intermediate, SEVERE RASH, HIVES, 04/24/17) Vancomycin (Verified Allergy, Intermediate, rash, 04/24/17) Tobramycin (Verified Allergy, Mild, MILD RASH ON ARM, RED FACE, 04/24/17) IMPROVED AFTER BENADRYL, TAKING REST OF DOSE Amikacin (Verified Allergy, Unknown, PER DR ROBINS,RXN WAS TO ZOSYN NOT AMKrash;hives, 04/24/17) Sulfamethoxazole w/Trimethoprim (Verified Allergy, Unknown, Hives, ) Can be pretreated with 10mg Zytrec 45 min prior to admin Home Medications Scheduled Aztreonam (Aztreonam), 2 GM IV Q8 Benztropine Mesylate (Benztropine Mesylate), 1 MG PO BID Cholecalciferol (Vitamin D), 2,000 INTER.UNIT PO BID Clonazepam (Klonopin), 0.5 MG PO HS Cyanocobalamin (Vitamin B-12), 500 MCG PO DAILY Ergotamine Tartrate (Ergomar), 2 MG PO 2XWK Ferrous Sulfate (Ferrous Sulfate), 325 MG PO BID Fluticasone Prop/Salmeterol (Advair Diskus 500/50 60 Dose), 1 PUFF INH BID Gabapentin (Gabapentin), 300 MG PO TID Hydroxyzine HCl (Hydroxyzine Pamoate), 50 MG PO HS Hydroxyzine HCl (Hydroxyzine HCl), 25 MG PO QAM Hyoscyamine Sulfate (Levsin), 0.125 MG PO TID Levothyroxine Sodium (Synthroid), 75 MCG PO DAILY Linaclotide (Linzess), 290 MCG PO QAM [place] Carbonate ([place] Carbonate), 600 MG PO QPM [place] Carbonate Er (Lithobid Ext Rel), 450 MG PO QAM Metronidazole (Flagyl), 500 MG PO TID Montelukast Sod (Montelukast Sodium), 10 MG PO HS Multiple Vitamin (Multivitamin), 1 TAB PO DAILY Nystatin (Topical) (Nystop), 1 APPLN TOP UD Pantoprazole (Protonix), 40 MG PO AMHS Probiotic Product (Probiotic), 1 CAP PO TID Risperidone (Risperidone), 1 MG PO QAM Risperidone (Risperdal), 2 MG PO HS Rivaroxaban (Xarelto), 20 MG PO DAILY Topiramate (Qudexy Xr), 100 MG PO BID Venlafaxine Hcl (Venlafaxine Extended Rel), 37.5 MG PO DAILY Wound Dressings (Hydrofera Blue Foam Dress), 1 EA EXT UD Scheduled PRN Albuterol Sulfate (Proair Respiclick), 2 PUFFS INH Q4-6HRS PRN for SOB/Wheezing Dihydroergotamine Mesylate (Migranal), 1 SPRAY EDIE UD PRN for Migraine Docusate Sodium (Dulcolax Stool Softener), 100 MG PO BID PRN for Constipation Indomethacin (Indomethacin), 25 MG PO 2XWK PRN for Headache Meclizine Hcl (Meclizine Hcl), 25 MG PO TID PRN for Dizziness or Vertigo Ondasetron Odt (Zofran Odt), 4 MG SL Q8 PRN for Nausea Oxycodone HCl (Oxycodone HCl), 1 TAB PO QID PRN for Pain Sennosides (Senna Lax), 8.6 MG PO DAILY PRN for Constipation Zolmitriptan (Zomig), 5 MG PO PRN PRN for PRN Miscellaneous Medications Daptomycin (Daptomycin), 700 MG IV Review of Systems Constitutional: No fever, No chills, No sweats Eyes: No worsening of vision ENT: No hearing loss, No nasal symptoms Respiratory: No cough, No sputum, No wheezing Cardiovascular: No chest pain, No orthopnea, No PND Abdomen: No pain, No vomiting Musculoskeletal: + problem reported (R hip ulcer reported), No joint pain Genitourinary - Female: No dysuria, No urinary frequency Neurologic: + weakness, No memory loss, No paralysis Endocrine: No fatigue Hematologic / Lymphatic: No abnormal bleeding/bruising Integumentary: + problem reported (R hip ulcer reported) Allergic / Immunologic: No environmental allergies Physical Exam Vital Signs Date Time Temp Pulse Resp B/P (MAP) Pulse Ox O2 Delivery O2 Flow Rate FiO2 11/30/17 16:00 36.5 93 20 132/82 (99) 99 Room Air General Appearance: + pertinent finding (Overweight, young F - no distress - AAO x 3) Head: normocephalic Eyes: normal inspection ENT: normal ENT inspection, pharynx normal Neck: supple, no JVD Respiratory/Chest: chest non-tender, lungs clear, normal breath sounds Cardiovascular: regular rate, rhythm, no edema Abdomen/GI: normal bowel sounds, non tender, soft Back: normal inspection, no CVA tenderness Extremities/Musculoskelatal: + pertinent finding (B/L BKA - no skin breakdown at stumps) Neurologic/Psych: 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 Multiple recent admission - most recently due to a large nonhealing ulcer on her R hip with associated cellulitis. She had undergone debridement and is currently followed at the wound care clinic. The pt was evaluated at the clinic today and sent into the ER due to worsening of her wound and associated cellulitis. She has not complained of fevers or rigors. She does have excessive pain at the site. She is on an extensive antibiotic regimen including Daptomycin, Flagyl, Aztreonam. A recent wound culture 05/02 is growing Corynebacterium - sensitivities are not yet available. Prior wound cultures had grown Enterococcus Faecalis which was pansensitive, however, she has multiple antibiotic allergies. 1) Large, nonhealing ulcer, cellulitis and necrosis - Pt will remain on her current antibiotics. ID is consulted - surgery to evaluate for further debridement - may need vac or ultimately grafting. 2) DVT/PE - Xarelto is held - restart when possible after discussion with surgery 3) Chronic migraines - PRN meds available - may want to avoid vasoconstrictors at present - She is not c/o FRIED on admission 4) Asthma - no evidence of exacerbation - cont prescribed inhalers 5) Bipolar disease - cont [place]oree Full code - Xarelto prophylaxis (held) Total time for this admit including review of labs, meds, imaging - discussion with pt and ER attending - 38 min Level of Care Med/Surg Resuscitation Status FULL RESUSCITATION VTE Prophylaxis Given or contraindicated: Other Anticoagulation
[2017-05-04] MEDS ORDERED: POLYETHYLENE (MIRALAX) 17 GM PACK PO PRN (17:00)
[2017-05-04] MEDS ORDERED: MAGNESIUM HYDROXIDE SUSP 30 ML UDC PO PRN (17:00)
[2017-05-04] MEDS ORDERED: ALUMINUM/MAGNESIUM/SIMETH (MAALOX MAX) 30 ML UDC PO PRN (17:00)
[2017-05-04] MEDS ORDERED: NURSING VERBAL MED ORDER ONE ×2 (18:00→21:15)
[2017-05-04] MEDS: LACTOBACILLUS ACIDOPHILUS (FLORANEX) TAB PO SCH (18:35)
[2017-05-04] MEDS: FERROUS SULFATE 325 MG TAB PO SCH (18:35)
[2017-05-04] MEDS: OXYCODONE HCL IR 5 MG TAB (IMMEDIATE RELEASE) PO PRN (19:54)
[2017-05-04] MEDS: CLONAZEPAM 0.5 MG TAB PO SCH (20:55)
[2017-05-04] MEDS: FLUTICASONE/SALMETEROL (ADVAIR) 500/50 INH 14 PUFF INH SCH (20:56)
[2017-05-04] MEDS: QUDEXY PO SCH (20:57)
[2017-05-04] MEDS: RISPERIDONE 1 MG TAB PO SCH (20:58)
[2017-05-04] MEDS: GABAPENTIN 300 MG CAP PO SCH (20:58)
[2017-05-04] MEDS: LITHIUM CARBONATE 300 MG TAB PO SCH (20:59)
[2017-05-04] MEDS: HYOSCYAMINE SULFATE 0.125 MG SL TAB PO SCH (21:00)
[2017-05-04] MEDS: METRONIDAZOLE 500 MG TAB PO SCH (21:00)
[2017-05-04] MEDS: PANTOprazole SOD 40 MG TAB PO SCH (21:00)
[2017-05-04] MEDS ORDERED: LITHIUM CARBONATE 300 MG TAB PO SCH (21:00)
[2017-05-04] MEDS: hydrOXYzine HCL 25 MG TAB PO SCH (21:01)
[2017-05-04] MEDS: MONTELUKAST SOD 10 MG TAB PO SCH (21:02)
[2017-05-04] MEDS: BENZTROPINE MESYLATE 1 MG TAB PO SCH (21:02)
[2017-05-04] MEDS: MoRPHine SULFATE 2 MG/ML CARP IV PRN ×2 (21:36→22:07)
[2017-05-04] MEDS: AZTREONAM 2000 MG in DEXTROSE 5% 100 ML IV SCH (21:36)
[2017-05-04] MEDS ORDERED: AZTREONAM IV SCH (22:00)
[2017-05-04] MEDS: ONDANSETRON INJ 2 MG/ML 2 ML VIAL IV PRN (23:06)
[2017-05-04 23:09] VITALS: BP 116/71; PULSE 93; TEMP 36.9; O2SAT 99
[2017-05-05] MEDS ORDERED: LINZESS~ORDER AWAITING ACTION SCH
[2017-05-05] MEDS: LEVOTHYROXINE 75 MCG TAB PO SCH (05:32)
[2017-05-05] MEDS: AZTREONAM 2000 MG in DEXTROSE 5% 100 ML IV SCH ×3 (05:32→22:15)
[2017-05-05] MEDS: LINACLOTIDE 290 MCG CAP PO SCH (05:32)
[2017-05-05] MEDS: MoRPHine SULFATE 2 MG/ML CARP IV PRN ×2 (06:09→12:08)
[2017-05-05] MEDS: OXYCODONE HCL IR 5 MG TAB (IMMEDIATE RELEASE) PO PRN ×2 (07:42→13:35)
[2017-05-05] MEDS: FLUTICASONE/SALMETEROL (ADVAIR) 500/50 INH 14 PUFF INH SCH ×2 (08:37→22:10)
[2017-05-05] MEDS: QUDEXY PO SCH ×2 (08:37→22:14)
[2017-05-05] MEDS: BENZTROPINE MESYLATE 1 MG TAB PO SCH ×2 (08:39→22:12)
[2017-05-05] MEDS: LACTOBACILLUS ACIDOPHILUS (FLORANEX) TAB PO SCH ×3 (08:39→18:16)
[2017-05-05] MEDS: CYANOCOBALAMIN 500 MCG TAB (VIT B-12) PO SCH (08:39)
[2017-05-05] MEDS: FERROUS SULFATE 325 MG TAB PO SCH ×2 (08:39→18:16)
[2017-05-05] MEDS: MULTIVITAMIN TAB PO SCH (08:39)
[2017-05-05] MEDS: PANTOprazole SOD 40 MG TAB PO SCH ×2 (08:40→22:11)
[2017-05-05] MEDS: VENLAFAXINE HCL XR 37.5 MG CAPXR PO SCH (08:40)
[2017-05-05] MEDS: HYOSCYAMINE SULFATE 0.125 MG SL TAB PO SCH ×3 (08:40→22:10)
[2017-05-05] MEDS: LITHIUM CARBONATE 450 MG TABCR PO SCH (08:40)
[2017-05-05] MEDS: METRONIDAZOLE 500 MG TAB PO SCH ×3 (08:40→22:11)
[2017-05-05] MEDS: RISPERIDONE 1 MG TAB PO SCH ×2 (08:40→22:11)
[2017-05-05] MEDS: hydrOXYzine HCL 25 MG TAB PO SCH ×2 (08:41→22:11)
[2017-05-05] MEDS: GABAPENTIN 300 MG CAP PO SCH ×3 (08:41→22:11)
[2017-05-05 08:57] LABS: HEMATOCRIT 38.7 % (37-47); HEMOGLOBIN 12.1 g/dL (12.0-16.0); MEAN CELL VOLUME 96.5 fL (80-100); MEAN CORPUSCULAR HEMOGLOBIN 30.2 pg (25-34); MEAN CORPUSCULAR HGB CONC 31.3 g/dl (32-36); MEAN PLATELET VOLUME 9.9 fL (7.4-10.4); PLATELET COUNT 263 K/uL (130-400); RED CELL DISTRIBUTION WIDTH CV 17.3 % (11.5-14.5); RED CELL DISTRIBUTION WIDTH SD 61.8 fL (36.4-46.3); WHITE BLOOD COUNT 9.77 K/uL (4.8-10.8)
[2017-05-05] MEDS ORDERED: DAPTOmycin 500 MG VIAL IV SCH (09:00)
[2017-05-05 09:03] LABS: INR 1.3 (0.9-1.1)
[2017-05-05 09:04] VITALS: O2SAT 100
[2017-05-05 09:06] VITALS: BP 129/67; PULSE 98; TEMP 36.9; O2SAT 100
[2017-05-05 09:24] LABS: CREATININE 0.68 mg/dl (0.60-1.20); POTASSIUM 3.1 mmol/L (3.5-5.1)
[2017-05-05] MEDS ORDERED: POTASSIUM CHLORIDE 20 MEQ TABCR PO ONE ×2 (10:00→13:00)
[2017-05-05] MEDS ORDERED: NURSING VERBAL MED ORDER ONE ×2 (12:30→12:45)
[2017-05-05] MEDS ORDERED: WATER, STERILE FOR INJ 10 ML VIAL IV ONE (12:45)
[2017-05-05] MEDS ORDERED: ALTEPLASE, RECOMBINANT 1 MG/ML 2 ML VIAL IV ONE ×2 (12:45→15:30)
[2017-05-05 13:35] VITALS: BP 129/73; PULSE 93; TEMP 36.7; O2SAT 96
--- NOTE | 2017-05-05 14:55 | Medical Consult ---
Consultation Date of Consultation: May 05, 2017. Attending Physician: Nasir Farmer MD Reason for Consultation: Resistance cellulitis History of Present Illness 32-year-old female well known to the Infectious Disease service with history of spina bifida, paraplegia, status post bilateral lower extremity BKAs, DVT/PE on Xarelto, who [facility] worsening right posterior thigh with large amount of necrotic fat being treated with IV antibiotics with aztreonam, vancomycin, and oral metronidazole along with wound VAC, was seen yesterday with evidence of worsening infection with cornel wound cellulitis. She has been admitted to the hospital and now irrigating wound VAC has been placed. She appears more comfortable although complaints of pain, 8/ 10 in intensity. No report of fever. Past Medical/Surgical History Medical Problems: (1) Acute mastitis of right breast Status: Acute (2) Acute pyelonephritis Status: Acute (3) Allergic reaction Status: Acute (4) Allergic reaction Status: Acute (5) Asthma with exacerbation Status: Acute (6) Cellulitis of right buttock Status: Acute (7) Chronic headache Status: Acute (8) Chronic UTI (urinary tract infection) Status: Acute (9) Complicated urinary tract infection Status: Acute (10) Dehydration Status: Acute (11) Delusions Status: Acute (12) Drowsiness Status: Acute (13) Failure of outpatient treatment Status: Acute (14) Gabapentin overdose Status: Acute (15) Hypokalemia Status: Acute (16) Hypokalemia Status: Acute (17) Intractable headache Status: Acute (18) Laceration Status: Acute (19) Low back pain Status: Acute (20) Lower abdominal pain Status: Acute (21) Lower abdominal pain Status: Acute (22) Mood disorder Status: Acute (23) Mood disorder Status: Acute (24) Multiple drug resistant organism (MDRO) culture positive Status: Acute (25) Nausea Status: Acute (26) Nausea Status: Acute (27) Paranoia Status: Acute (28) Pelvic pain Status: Acute (29) Right flank pain Status: Acute (30) Right leg pain Status: Acute (31) Self-harming behavior Status: Acute (32) Shunt malfunction Status: Acute (33) Shunt malfunction Status: Acute (34) Suicidal ideation Status: Acute (35) Suicidal ideation Status: Acute (36) Suprapubic pain Status: Acute (37) Urinary tract infection Status: Acute (38) Urinary tract infection Status: Acute (39) Urinary tract infection Status: Acute (40) UTI (urinary tract infection) Status: Acute (41) UTI (urinary tract infection) Status: Acute (42) Weakness Status: Acute Medical Problems: (1) Allergic reaction caused by a drug (2) Anxiety (3) Asthma (4) Asthma exacerbation (5) Bipolar 1 disorder (6) Cellulitis (7) Cellulitis of hip, right (8) Depression (9) Gastroparesis (10) GERD (gastroesophageal reflux disease) (11) Hydrocephalus (12) Intractable headache (13) Migraines (14) MRSA (methicillin resistant Staphylococcus aureus) (15) Nonhealing nonsurgical wound with necrosis of muscle (16) Osteomyelitis (17) Pulmonary embolism (18) Shunt placement with revision x8 (19) Spina bifida (20) UTI (urinary tract infection) Surgical Problems: (1) S/P BKA (below knee amputation) bilateral Family History Cancer Diabetes mellitus Lung disease Social History Smoking Status: Never Smoker Drug Use: none Marital Status: single Housing Status: lives with family Occupation Status: disabled Allergies Coded Allergies: Adhesives (Verified Allergy, Intermediate, TAPE- HIVES, 04/24/17) Ceftriaxone (Verified Allergy, Intermediate, rash, 04/24/17) Chlorhexidine (Verified Allergy, Intermediate, RASH, 04/24/17) Ciprofloxacin (Verified Allergy, Intermediate, hives, 04/24/17) Imipenem (Verified Allergy, Intermediate, PT REPORTS ITCHING, 04/24/17) Latex (Verified Allergy, Intermediate, hives, 04/24/17) Levofloxacin (Verified Allergy, Intermediate, rash, 04/24/17) Linezolid (Verified Allergy, Intermediate, rash, 04/24/17) Piperacillin (Verified Allergy, Intermediate, SEVERE RASH, HIVES, 04/24/17 ) Tazobactam (Verified Allergy, Intermediate, SEVERE RASH, HIVES, 04/24/17) Vancomycin (Verified Allergy, Intermediate, rash, 04/24/17) Tobramycin (Verified Allergy, Mild, MILD RASH ON ARM, RED FACE, 04/24/17) IMPROVED AFTER BENADRYL, TAKING REST OF DOSE Amikacin (Verified Allergy, Unknown, PER DR ROBINS,RXN WAS TO ZOSYN NOT AMKrash;hives, 04/24/17) Sulfamethoxazole w/Trimethoprim (Verified Allergy, Unknown, Hives, ) Can be pretreated with 10mg Zytrec 45 min prior to admin Current Inpatient Medications Current Inpatient Medications Medications (Trade) Dose Ordered Sig/Brenna Route Start Time Stop Time Status Last Admin Dose Admin Benztropine Mesylate (Cogentin Tab) 1 mg BID PO 05/04/17 21:00 06/03/17 20:59 05/05/17 08:39 1 MG Clonazepam (Klonopin Tab) 0.5 mg HS PO 05/04/17 21:00 06/03/17 20:59 05/04/17 20:55 0.5 MG Cyanocobalamin (Vitamin B-12 Tab) 500 mcg DAILY PO 05/05/17 09:00 06/04/17 08:59 05/05/17 08:39 500 MCG Docusate Sodium (coLACE CAP) 100 mg BID PRN PO 05/04/17 16:45 06/03/17 16:44 Salmeterol Xinafoate/ Fluticasone (Advair Diskus 500/50 Inh) 1 puff BID INH 05/04/17 21:00 06/03/17 20:59 05/05/17 08:37 1 PUFF Gabapentin (Neurontin Cap) 300 mg TID PO 05/04/17 21:00 06/03/17 20:59 05/05/17 13:35 300 MG Hydroxyzine HCl (Vistaril Tab) 25 mg QAM PO 05/05/17 09:00 06/04/17 08:59 05/05/17 08:41 25 MG Hyoscyamine Sulfate (Levsin Tab) 0.125 mg TID PO 05/04/17 21:00 06/03/17 20:59 05/05/17 13:36 0.125 MG Indomethacin (Indocin Cap) 25 mg Q12H PRN PO 05/04/17 16:45 06/03/17 16:44 Levothyroxine Sodium (Synthroid Tab) 75 mcg DAILYBB PO 05/05/17 06:00 06/04/17 05:59 05/05/17 05:32 75 MCG Loris Carbonate (Eskalith Cr Tab) 450 mg QAM PO 05/05/17 09:00 06/04/17 08:59 12/1/17 08:40 450 MG Meclizine HCl (Antivert Tab) 25 mg TID PRN PO 05/04/17 16:45 06/03/17 16:44 Metronidazole (Flagyl Tab) 500 mg TID PO 05/04/17 21:00 05/14/17 20:59 05/05/17 13:35 500 MG Montelukast Sodium (Singulair Tab) 10 mg HS PO 05/04/17 21:00 06/03/17 20:59 05/04/17 21:02 10 MG Multivitamins (Multivitamin Tab) 1 tab DAILY PO 05/05/17 09:00 06/04/17 08:59 05/05/17 08:39 1 TAB Ondansetron HCl (Zofran Odt) 4 mg Q8 PRN SL 05/04/17 16:45 06/03/17 16:44 Oxycodone HCl (Roxicodone Immediate Rel Tab) 5 mg QID PRN PO 05/04/17 16:45 05/18/17 16:44 05/05/17 13:35 5 MG Pantoprazole Sodium (Protonix Tab) 40 mg AMHS PO 05/04/17 21:00 06/03/17 20:59 05/05/17 08:40 40 MG Risperidone (Risperdal Tab) 1 mg QAM PO 05/05/17 09:00 06/04/17 08:59 05/05/17 08:40 1 MG Risperidone (Risperdal Tab) 2 mg HS PO 05/04/17 21:00 06/03/17 20:59 05/04/17 20:58 2 MG Senna (Senokot Tab) 8.6 mg DAILY PRN PO 05/04/17 16:45 06/03/17 16:44 Venlafaxine HCl (effeXOR EXTENDED REL CAP) 37.5 mg DAILY PO 05/05/17 09:00 06/04/17 08:59 05/05/17 08:40 37.5 MG Albuterol (Ventolin Hfa Inhaler) 2 puffs Q4H PRN INH 05/04/17 17:15 06/03/17 17:14 Miscellaneous Information (Order Awaiting Action) 1 ea QS N/A 05/05/17 00:00 06/04/17 00:00 Ferrous Sulfate (Feosol Tab) 325 mg BIDM PO 05/04/17 17:45 06/03/17 17:44 05/05/17 08:39 325 MG Hydroxyzine HCl (Vistaril Tab) 50 mg HS PO 05/04/17 21:00 06/03/17 20:59 05/04/17 21:01 50 MG Lactobacillus Acidophilus (Floranex Tab) 4 tab TIDM PO 05/04/17 17:45 06/03/17 17:44 05/05/17 12:15 4 TAB Acetaminophen (Tylenol Tab) 650 mg Q4H PRN PO 05/04/17 17:00 06/03/17 16:59 Al Hydrox/Mg Hydrox/Simethicone (Maalox Max Susp) 15 ml Q4H PRN PO 05/04/17 17:00 06/03/17 16:59 Magnesium Hydroxide (Milk Of Magnesia Susp) 30 ml Q6H PRN PO 05/04/17 17:00 06/03/17 16:59 Polyethylene (Miralax Powder Packet) 17 gm DAILY PRN PO 05/04/17 17:00 06/03/17 16:59 Ondansetron HCl (Zofran Inj) 4 mg Q6H PRN IV 05/04/17 17:00 06/03/17 16:59 05/04/17 23:06 4 MG Non-Formulary Medication (Non-Formulary Patient'S Own Med) 1 ea BID PO 05/04/17 21:00 06/03/17 20:59 05/05/17 08:37 1 EA Linaclotide (Linzess) 290 mcg DAILYBB PO 05/05/17 06:00 06/04/17 05:59 05/05/17 05:32 290 MCG Aztreonam 2000 mg/ Dextrose 110 ml @ 110 mls/hr Q8H IV 05/04/17 22:00 05/11/17 23:59 05/05/17 13:55 110 MLS/HR Daptomycin 700 mg/ Sodium Chloride 64 ml @ 120 mls/hr Q24H IV 05/05/17 16:00 05/15/17 15:59 Loris Carbonate (Loris Carbonate Tab) 600 mg HS PO 05/04/17 21:00 06/03/17 20:59 05/04/17 20:59 600 MG Heparin Sodium (Porcine) (Heparin 10 Unit/ ml 5 ml Flush) 5 ml PRN PRN FLUSH 05/04/17 20:00 06/03/17 19:59 05/05/17 12:13 5 ML Morphine Sulfate (MoRPHine SULFATE INJ) 4 mg Q4H PRN IV 05/04/17 21:15 05/18/17 21:14 Morphine Sulfate (MoRPHine SULFATE INJ) 2 mg Q4H PRN IV 05/04/17 21:15 05/18/17 21:14 05/05/17 12:08 2 MG Enteral Nutritional Formula (Boost Breeze Nutritional Drink) 1 box DAILY PO 05/06/17 09:00 06/05/17 08:59 Review of Systems All systems were reviewed and are negative except as per HPI Physical Exam Date Time Temp Pulse Resp B/P (MAP) Pulse Ox O2 Delivery O2 Flow Rate FiO2 05/05/17 13:35 36.7 93 19 129/73 (91) 96 Room Air 05/05/17 09:06 36.9 98 19 129/67 (87) 100 Room Air 05/05/17 09:04 100 Room Air 05/05/17 07:50 Room Air 05/05/17 00:05 Room Air 05/04/17 23:09 36.9 93 18 116/71 (86) 99 Room Air 05/04/17 16:00 36.5 93 20 132/82 (99) 99 Room Air 05/04/17 16:00 Room Air General Appearance: WD/WN, + mild distress, + obese Head: normocephalic, atraumatic Eyes: normal inspection, EOMI, sclerae normal ENT: normal ENT inspection, hearing grossly normal, pharynx normal Neck: supple, no adenopathy, thyroid normal, trachea midline Respiratory/Chest: chest non-tender, lungs clear, normal breath sounds, no respiratory distress Cardiovascular: regular rate, rhythm, no gallop, no murmur Abdomen/GI: normal bowel sounds, non tender, soft, no organomegaly Back: normal inspection, no CVA tenderness Extremities/Musculoskelatal: normal capillary refill, + pertinent finding ( Bilateral BK amputations) Neurologic/Psych: alert, oriented x 3 Skin: normal color, no rash, + pertinent finding (Wound VAC in place right posterior thigh, some cornel VAC erythema) Lymphatic: no adenopathy Laboratory Results Last 24 Hours Test 05/05/17 08:44 White Blood Count 9.77 K/uL Red Blood Count 4.01 M/uL Hemoglobin 12.1 g/dL Hematocrit 38.7 % Mean Corpuscular Volume 96.5 fL Mean Corpuscular Hemoglobin 30.2 pg Mean Corpuscular Hemoglobin Concent 31.3 g/dl RDW Standard Deviation 61.8 fL RDW Coefficient of Variation 17.3 % Platelet Count 263 K/uL Mean Platelet Volume 9.9 fL Prothrombin Time 14.0 SECONDS Prothromb Time International Ratio 1.3 Sodium Level 139 mmol/L Potassium Level 3.1 mmol/L Chloride Level 105 mmol/L Carbon Dioxide Level 23 mmol/L Anion Gap 11.0 mmol/L Blood Urea Nitrogen 11 mg/dl Creatinine 0.68 mg/dl Est Creatinine Clear Calc Drug Dose 101.9 ml/min Estimated GFR () 136.0 Estimated GFR (Non- 117.4 BUN/Creatinine Ratio 15.8 Random Glucose 137 mg/dl Calcium Level 9.0 mg/dl Magnesium Level 2.3 mg/dl Assessment & Plan Infected right thigh wound with previous cultures growing corynebacterium, repeat cultures are pending. Patient be continued on broad-spectrum antibiotics with daptomycin, aztreonam, and metronidazole given her multiple allergies. Continue with irrigating wound VAC. Will follow.
[2017-05-05 15:01] VITALS: BP 116/77; PULSE 101; TEMP 36.8; O2SAT 94
[2017-05-05] MEDS ORDERED: FAMOTIDINE IV INJ 20 MG in DEXTROSE 5% 100ML 100 ML IV SCH (15:30)
[2017-05-05] MEDS: SENNA 8.6 MG TAB PO SCH (16:30)
[2017-05-05] MEDS: MoRPHine SULFATE 4 MG/ML 1 ML CARP\\VIAL IV PRN (16:52)
[2017-05-05] MEDS: FAMOTIDINE IV INJ 20 MG in SYRINGE 3 ML IV SCH (17:09)
[2017-05-05] MEDS: DAPTOmycin IV 700 MG in SODIUM CHLORIDE 0.9% 50ML 50 ML IV SCH (17:09)
[2017-05-05] MEDS: ONDANSETRON 4MG OD TAB SL PRN (18:24)
[2017-05-05] MEDS: CLONAZEPAM 0.5 MG TAB PO SCH (22:10)
[2017-05-05] MEDS: CHOLECALCIFEROL 1000 INTER.UNIT TAB PO SCH (22:10)
[2017-05-05] MEDS: MONTELUKAST SOD 10 MG TAB PO SCH (22:11)
[2017-05-05] MEDS: DOCUSATE SODIUM 100 MG CAP PO SCH (22:12)
[2017-05-05] MEDS: LITHIUM CARBONATE 300 MG TAB PO SCH (22:14)
[2017-05-05 22:48] VITALS: BP 153/72; PULSE 104; TEMP 37; O2SAT 94
--- NOTE | 2017-05-05 23:49 | Progress Note ---
Subjective Date of Service: May 05, 2017. Subjective Pt evaluation today including: conversation w/ patient, conversation w/ family (mother at bedside), physical exam, chart review, lab review, review of inpatient medication list Pain: right leg - worst area is around the wound vac itself PO Intake: normal Voiding: arango catheter in place patient recounts details of hospitalization at [facility] earlier this fall to r/o [employer] shunt malfunction. Intra-cranial pressure monitor was placed and it was found the [employer] shunt was indeed working. her stay was complicated by what sounds like UTI and ?cellulitis of right breast vs mastitis vs central a-port infiltration. she reports ongoing issues with GERD, ongoing issues with right leg pain, desire for bowel regimen. mother requests arango catheter is flushed at least daily. Problem List Medical Problems: (1) Acute mastitis of right breast Status: Acute (2) Acute pyelonephritis Status: Acute (3) Allergic reaction Status: Acute (4) Allergic reaction Status: Acute (5) Asthma with exacerbation Status: Acute (6) Cellulitis of right buttock Status: Acute (7) Chronic headache Status: Acute (8) Chronic UTI (urinary tract infection) Status: Acute (9) Complicated urinary tract infection Status: Acute (10) Dehydration Status: Acute (11) Delusions Status: Acute (12) Drowsiness Status: Acute (13) Failure of outpatient treatment Status: Acute (14) Gabapentin overdose Status: Acute (15) Hypokalemia Status: Acute (16) Hypokalemia Status: Acute (17) Intractable headache Status: Acute (18) Laceration Status: Acute (19) Low back pain Status: Acute (20) Lower abdominal pain Status: Acute (21) Lower abdominal pain Status: Acute (22) Mood disorder Status: Acute (23) Mood disorder Status: Acute (24) Multiple drug resistant organism (MDRO) culture positive Status: Acute (25) Nausea Status: Acute (26) Nausea Status: Acute (27) Paranoia Status: Acute (28) Pelvic pain Status: Acute (29) Right flank pain Status: Acute (30) Right leg pain Status: Acute (31) Self-harming behavior Status: Acute (32) Shunt malfunction Status: Acute (33) Shunt malfunction Status: Acute (34) Suicidal ideation Status: Acute (35) Suicidal ideation Status: Acute (36) Suprapubic pain Status: Acute (37) Urinary tract infection Status: Acute (38) Urinary tract infection Status: Acute (39) Urinary tract infection Status: Acute (40) UTI (urinary tract infection) Status: Acute (41) UTI (urinary tract infection) Status: Acute (42) Weakness Status: Acute Review of Systems Constitutional: No fever, No chills Respiratory: No shortness of breath Cardiac: No chest pain Abdomen: No pain Objective Vital Signs Date Time Temp Pulse Resp B/P (MAP) Pulse Ox O2 Delivery O2 Flow Rate FiO2 05/05/17 16:52 Room Air 05/05/17 15:01 36.8 101 16 116/77 (90) 94 Room Air 05/05/17 13:35 36.7 93 19 129/73 (91) 96 Room Air 05/05/17 09:06 36.9 98 19 129/67 (87) 100 Room Air 05/05/17 09:04 100 Room Air 05/05/17 07:50 Room Air 05/05/17 00:05 Room Air 05/04/17 23:09 36.9 93 18 116/71 (86) 99 Room Air Physical Exam General Appearance: no apparent distress, + obese ENT: pharynx normal Neck: no JVD Respiratory/Chest: lungs clear, no respiratory distress, no accessory muscle use Cardiovascular: regular rate, rhythm, no gallop, no murmur Abdomen: normal bowel sounds, non tender, soft, no organomegaly Extremities: + pertinent finding (b/l BKAs) Neurologic/Psychiatric: alert Skin: + pertinent finding (posterior right leg, distal -- wound vac in place; significant tenderness to the skin/tissue immediately adjacent to the wound vac but no obvious cellulitis; there is an area of irritated, dry, erythematous skin laterally on the distal right leg ) Comments: right arm PICC clean; no erythema, no drainage Laboratory Results Last 24 Hours Test 05/05/17 08:44 White Blood Count 9.77 K/uL Red Blood Count 4.01 M/uL Hemoglobin 12.1 g/dL Hematocrit 38.7 % Mean Corpuscular Volume 96.5 fL Mean Corpuscular Hemoglobin 30.2 pg Mean Corpuscular Hemoglobin Concent 31.3 g/dl RDW Standard Deviation 61.8 fL RDW Coefficient of Variation 17.3 % Platelet Count 263 K/uL Mean Platelet Volume 9.9 fL Prothrombin Time 14.0 SECONDS Prothromb Time International Ratio 1.3 Sodium Level 139 mmol/L Potassium Level 3.1 mmol/L Chloride Level 105 mmol/L Carbon Dioxide Level 23 mmol/L Anion Gap 11.0 mmol/L Blood Urea Nitrogen 11 mg/dl Creatinine 0.68 mg/dl Est Creatinine Clear Calc Drug Dose 101.9 ml/min Estimated GFR () 136.0 Estimated GFR (Non- 117.4 BUN/Creatinine Ratio 15.8 Random Glucose 137 mg/dl Calcium Level 9.0 mg/dl Magnesium Level 2.3 mg/dl Assessment and Plan 32yo female - 1. traumatic wound to the right leg with resulting ulceration, s/p multiple debridements, now with application of wound vac today by enterostomy. ID has seen, has recommended ongoing use of IV daptomycin, aztreonam, and flagyl. Recent culture from the wound care center on 05/02 and 05/04 are both growing corynebacterium. Pain control is a problem - will adjust meds - see below. 2. pain, right leg - increase oxycodone to 10mg prn, add toradol prn, and make IV meds available as well. 3. constipation - continue senna, colace, and linzess. 4. spina bifida - noted. 5. morbid obesity w/ BMI 77 6. b/l BKA status - noted. 7. h/o VTE - continue xarelto. 8. GERD - cont PPI, add H2 yolanda IV. 9. chronic urinary retention 2nd to spina bifida - arango exchange [id number]. Flush arango daily. 10. bipolar d/o - continue home meds as previous. 11. DVT proph - xarelto. 12. hypothyroidism - cont synthroid, most recent TSH compensated. 13. asthma - stable at this time with no significant symptoms. 14. hypokalemia - replace, repeat level in am. mother updated Continued [facility] stay due to: inadequate oral pain control, ambulation difficulties, multiple IV medications needed Discharge planning: home with home health, home with IV medication
[2017-05-06] MEDS: MoRPHine SULFATE 4 MG/ML 1 ML CARP\\VIAL IV PRN ×3 (00:03→15:44)
[2017-05-06] MEDS: FAMOTIDINE IV INJ 20 MG in SYRINGE 3 ML IV SCH ×2 (05:33→18:53)
[2017-05-06] MEDS: AZTREONAM 2000 MG in DEXTROSE 5% 100 ML IV SCH ×3 (05:43→21:18)
[2017-05-06] MEDS: LINACLOTIDE 290 MCG CAP PO SCH (05:45)
[2017-05-06] MEDS: LEVOTHYROXINE 75 MCG TAB PO SCH (05:45)
[2017-05-06 07:13] VITALS: BP 97/56; PULSE 94; TEMP 37; O2SAT 97
[2017-05-06] MEDS: LACTOBACILLUS ACIDOPHILUS (FLORANEX) TAB PO SCH ×3 (08:36→18:55)
[2017-05-06] MEDS: MULTIVITAMIN TAB PO SCH (08:37)
[2017-05-06] MEDS: FERROUS SULFATE 325 MG TAB PO SCH ×2 (08:37→18:54)
[2017-05-06] MEDS: PANTOprazole SOD 40 MG TAB PO SCH ×2 (08:37→21:15)
[2017-05-06] MEDS: METRONIDAZOLE 500 MG TAB PO SCH ×3 (08:37→21:15)
[2017-05-06] MEDS: DOCUSATE SODIUM 100 MG CAP PO SCH ×2 (08:37→21:16)
[2017-05-06] MEDS: CYANOCOBALAMIN 500 MCG TAB (VIT B-12) PO SCH (08:38)
[2017-05-06] MEDS: CHOLECALCIFEROL 1000 INTER.UNIT TAB PO SCH ×2 (08:38→21:16)
[2017-05-06] MEDS: LITHIUM CARBONATE 450 MG TABCR PO SCH (08:38)
[2017-05-06] MEDS: GABAPENTIN 300 MG CAP PO SCH ×3 (08:39→21:16)
[2017-05-06] MEDS: BENZTROPINE MESYLATE 1 MG TAB PO SCH ×2 (08:39→21:15)
[2017-05-06] MEDS: hydrOXYzine HCL 25 MG TAB PO SCH ×2 (08:40→21:15)
[2017-05-06] MEDS: HYOSCYAMINE SULFATE 0.125 MG SL TAB PO SCH ×3 (08:40→21:16)
[2017-05-06] MEDS: SENNA 8.6 MG TAB PO SCH (08:40)
[2017-05-06] MEDS: VENLAFAXINE HCL XR 37.5 MG CAPXR PO SCH (08:41)
[2017-05-06] MEDS: FLUTICASONE/SALMETEROL (ADVAIR) 500/50 INH 14 PUFF INH SCH ×2 (08:41→21:15)
[2017-05-06] MEDS: RISPERIDONE 1 MG TAB PO SCH ×2 (08:42→21:15)
[2017-05-06] MEDS: QUDEXY PO SCH ×2 (08:42→21:16)
[2017-05-06] MEDS: BOOST BREEZE NUTRITION DRINK 1 BOX PO SCH (08:43)
[2017-05-06] MEDS ORDERED: POTASSIUM CHLORIDE 10 MEQ TABCR PO STA (09:12)
[2017-05-06] MEDS: OXYCODONE HCL IR 5 MG TAB (IMMEDIATE RELEASE) PO PRN (10:13)
[2017-05-06] MEDS ORDERED: OPTIRAY 320 IV PRN (13:00)
[2017-05-06] MEDS ORDERED: POTASSIUM CHLORIDE 20 MEQ TABCR PO SCH (14:00)
[2017-05-06 15:21] VITALS: BP 117/80; PULSE 96; TEMP 36.8; O2SAT 92
[2017-05-06] MEDS: DAPTOmycin IV 700 MG in SODIUM CHLORIDE 0.9% 50ML 50 ML IV SCH (15:37)
[2017-05-06] MEDS ORDERED: CLONAZEPAM 1 MG TAB PO ONE (15:45)
--- NOTE | 2017-05-06 17:39 | DIAGNOSTIC IMAGING REPORT ---
R LOWER EXTREMITY WITH HISTORY: 32 years-old Female large ulcer posterior right thigh acute right thigh ulcer COMPARISON: CT abdomen and pelvis 04/19/2016 TECHNIQUE: Multiple axial CT images of the right lower extremity were obtained following the intravenous administration of 92 mL Optiray 320. A dose lowering technique was used consistent with the principals of ÁNGEL. FINDINGS: No acute intrapelvic abnormality identified. There is moderate volume of formed colonic suggesting constipation. A suprapubic catheter is present within the urinary bladder lumen. Uterus and adnexa are unremarkable. There is severe atrophy of the iliacus and thigh musculature bilaterally. Mildly prominent right inguinal lymph nodes are seen measuring up to 1.8 x 1.1 cm. There is a large ulcer of the posterior aspect of the proximal right thigh measuring approximately 9.2 x 9.8 x 6.9 cm with moderate amount of associated subcutaneous edema and skin thickening suggesting associated cellulitis. Mild stranding extends towards the mid shaft right femur. No abscess or drainable fluid collection. The bones are moderately demineralized and demonstrate no acute fracture or dislocation. No erosive changes to suggest osteomyelitis. There is superior subluxation of the bilateral femora relation to the acetabular fossa with associated remodeling changes. Incomplete posterior bony fusion of the sacrum is noted compatible with spinal dysraphism. IMPRESSION: 1. Large soft tissue ulcer of the proximal posterior right thigh measuring up to 9.2 cm with associated cellulitis changes. No abscess or drainable fluid collection. 2. Moderately demineralized appearance of the bones without acute bony abnormality or erosive changes to suggest osteomyelitis. 3. Mild right inguinal adenopathy, likely reactive. 4. Suggested constipation. 5. Severe muscular atrophy and remodeling changes of the hips compatible with non-ambulatory state. The above report was generated using voice recognition software. It may contain grammatical, syntax or spelling errors. Electronically signed by: Bob Martino M.D. 05/06/2017 5:38 PM Dictated Date/Time: 05/06/2017 5:26 PM
--- NOTE | 2017-05-06 17:59 | Progress Note ---
Subjective Date of Service: May 06, 2017. Subjective Pt evaluation today including: conversation w/ patient, physical exam, chart review, lab review, review of studies (CT right leg), review of inpatient medication list Pain: right leg, severe - WORSE than at admission PO Intake: improved, more comfortable today Voiding: arango catheter in place patient w/ complaints of right leg pain her GERD is better with IV H2 yolanda no fever Problem List Medical Problems: (1) Acute mastitis of right breast Status: Acute (2) Acute pyelonephritis Status: Acute (3) Allergic reaction Status: Acute (4) Allergic reaction Status: Acute (5) Asthma with exacerbation Status: Acute (6) Cellulitis of right buttock Status: Acute (7) Chronic headache Status: Acute (8) Chronic UTI (urinary tract infection) Status: Acute (9) Complicated urinary tract infection Status: Acute (10) Dehydration Status: Acute (11) Delusions Status: Acute (12) Drowsiness Status: Acute (13) Failure of outpatient treatment Status: Acute (14) Gabapentin overdose Status: Acute (15) Hypokalemia Status: Acute (16) Hypokalemia Status: Acute (17) Intractable headache Status: Acute (18) Laceration Status: Acute (19) Low back pain Status: Acute (20) Lower abdominal pain Status: Acute (21) Lower abdominal pain Status: Acute (22) Mood disorder Status: Acute (23) Mood disorder Status: Acute (24) Multiple drug resistant organism (MDRO) culture positive Status: Acute (25) Nausea Status: Acute (26) Nausea Status: Acute (27) Paranoia Status: Acute (28) Pelvic pain Status: Acute (29) Right flank pain Status: Acute (30) Right leg pain Status: Acute (31) Self-harming behavior Status: Acute (32) Shunt malfunction Status: Acute (33) Shunt malfunction Status: Acute (34) Suicidal ideation Status: Acute (35) Suicidal ideation Status: Acute (36) Suprapubic pain Status: Acute (37) Urinary tract infection Status: Acute (38) Urinary tract infection Status: Acute (39) Urinary tract infection Status: Acute (40) UTI (urinary tract infection) Status: Acute (41) UTI (urinary tract infection) Status: Acute (42) Weakness Status: Acute Review of Systems Constitutional: No fever, No chills Respiratory: No shortness of breath, No dyspnea at rest Cardiac: No chest pain Abdomen: No pain Objective Vital Signs Date Time Temp Pulse Resp B/P (MAP) Pulse Ox O2 Delivery O2 Flow Rate FiO2 05/06/17 15:21 36.8 96 17 117/80 (92) 92 Room Air 05/06/17 15:15 Room Air 05/06/17 07:50 Room Air 05/06/17 07:13 37.0 94 19 97/56 (70) 97 Room Air 05/06/17 00:00 Room Air 05/05/17 22:48 37.0 104 18 153/72 (99) 94 Room Air Physical Exam General Appearance: no apparent distress, + obese ENT: pharynx normal Neck: no JVD Respiratory/Chest: lungs clear, no respiratory distress, no accessory muscle use, + decreased breath sounds (bases) Cardiovascular: regular rate, rhythm, no gallop, no murmur Abdomen: normal bowel sounds, non tender, soft, no organomegaly Extremities: + pertinent finding (b/l BKA's) Neurologic/Psychiatric: alert, oriented x 3 Skin: + pertinent finding (right posterior thigh -- large ulcer covered w/ wound vac; mild amount of surrounding erythema - no change from yesterday's exam ; area of erythematous skin - contact dermatitis - on right lateral thigh; she is tender when palpation the skin just adjacent to the wound vac; no crepitus ) Laboratory Results Last 24 Hours Test 05/06/17 06:47 Potassium Level 3.3 mmol/L Assessment and Plan 32yo female - 1. traumatic wound to the right leg with resulting ulceration, s/p multiple debridements, now with application of wound vac by enterostomy. ID has seen, has recommended ongoing use of IV daptomycin, aztreonam, and flagyl. Recent culture from the wound care center on 05/02 and 05/04 both grew corynebacterium with no additional pathogens. Pain is worse than at admission; CT leg w/ contrast obtained today to r/o nec fasc, abscess, etc -- negative for such. Cont pain control, IV abx, wound vac. 2. pain, right leg - cont oxycodone 10mg prn, toradol prn, IV morphine prn. 3. constipation - continue senna, colace, and linzess. 4. spina bifida - chronic. 5. morbid obesity w/ BMI 77 6. b/l BKA status 7. h/o VTE - continue xarelto. 8. GERD - cont PPI, add H2 yolanda IV. Improved. Change to PO H2 yolanda tomorrow. 9. chronic urinary retention 2nd to spina bifida - arango exchange [id number]. Flush arango daily. 10. bipolar d/o - continue home meds as previous. 11. DVT proph - xarelto. 12. hypothyroidism - cont synthroid, most recent TSH compensated. 13. asthma - stable at this time and w/o exacerbation. 14. hypokalemia - replaced but still low; replace again, repeat K in am. PT, OT evals Continued [facility] stay due to: inadequate oral pain control, ambulation difficulties, multiple IV medications needed Discharge planning: home with home health, home with IV medication
[2017-05-06] MEDS: CLONAZEPAM 0.5 MG TAB PO SCH (21:15)
[2017-05-06] MEDS: MONTELUKAST SOD 10 MG TAB PO SCH (21:15)
[2017-05-06] MEDS: LITHIUM CARBONATE 300 MG TAB PO SCH (21:16)
[2017-05-06 22:45] VITALS: BP 122/71; PULSE 94; TEMP 36.7; O2SAT 94
[2017-05-07] MEDS: MoRPHine SULFATE 4 MG/ML 1 ML CARP\\VIAL IV PRN ×2 (00:07→11:28)
[2017-05-07] MEDS: LINACLOTIDE 290 MCG CAP PO SCH (05:38)
[2017-05-07] MEDS: LEVOTHYROXINE 75 MCG TAB PO SCH (05:38)
[2017-05-07] MEDS: AZTREONAM 2000 MG in DEXTROSE 5% 100 ML IV SCH ×3 (05:39→21:52)
[2017-05-07] MEDS: FAMOTIDINE IV INJ 20 MG in SYRINGE 3 ML IV SCH ×2 (05:39→17:35)
[2017-05-07 07:19] VITALS: BP 98/64; PULSE 95; TEMP 36.9; O2SAT 95
[2017-05-07] MEDS: SENNA 8.6 MG TAB PO SCH (08:24)
[2017-05-07] MEDS: CYANOCOBALAMIN 500 MCG TAB (VIT B-12) PO SCH (08:25)
[2017-05-07] MEDS: VENLAFAXINE HCL XR 37.5 MG CAPXR PO SCH (08:25)
[2017-05-07] MEDS: METRONIDAZOLE 500 MG TAB PO SCH ×3 (08:25→20:49)
[2017-05-07] MEDS: CHOLECALCIFEROL 1000 INTER.UNIT TAB PO SCH ×2 (08:25→20:49)
[2017-05-07] MEDS: BENZTROPINE MESYLATE 1 MG TAB PO SCH ×2 (08:26→20:49)
[2017-05-07] MEDS: LITHIUM CARBONATE 450 MG TABCR PO SCH (08:26)
[2017-05-07] MEDS: MULTIVITAMIN TAB PO SCH (08:26)
[2017-05-07] MEDS: DOCUSATE SODIUM 100 MG CAP PO SCH ×2 (08:26→20:49)
[2017-05-07] MEDS: GABAPENTIN 300 MG CAP PO SCH ×3 (08:27→20:48)
[2017-05-07] MEDS: LACTOBACILLUS ACIDOPHILUS (FLORANEX) TAB PO SCH ×3 (08:27→17:35)
[2017-05-07] MEDS: HYOSCYAMINE SULFATE 0.125 MG SL TAB PO SCH ×3 (08:28→20:48)
[2017-05-07] MEDS: hydrOXYzine HCL 25 MG TAB PO SCH ×2 (08:28→20:48)
[2017-05-07] MEDS: FLUTICASONE/SALMETEROL (ADVAIR) 500/50 INH 14 PUFF INH SCH ×2 (08:29→20:47)
[2017-05-07] MEDS: QUDEXY PO SCH ×2 (08:29→20:50)
[2017-05-07] MEDS: RISPERIDONE 1 MG TAB PO SCH ×2 (08:29→20:50)
[2017-05-07] MEDS: BOOST BREEZE NUTRITION DRINK 1 BOX PO SCH (08:29)
[2017-05-07] MEDS: FERROUS SULFATE 325 MG TAB PO SCH ×2 (08:30→17:35)
[2017-05-07] MEDS: PANTOprazole SOD 40 MG TAB PO SCH ×2 (08:31→20:48)
[2017-05-07 10:47] LABS: CALCIUM 9.1 mg/dl (8.5-10.1); CREATININE 0.68 mg/dl (0.60-1.20); POTASSIUM 2.9 mmol/L (3.5-5.1)
[2017-05-07] MEDS: POTASSIUM CHLORIDE 20 MEQ TABCR PO SCH ×3 (13:56→20:48)
[2017-05-07 14:51] VITALS: BP 116/72; PULSE 112; TEMP 36.4; O2SAT 98
[2017-05-07] MEDS: ONDANSETRON INJ 2 MG/ML 2 ML VIAL IV PRN (15:50)
[2017-05-07] MEDS: DAPTOmycin IV 700 MG in SODIUM CHLORIDE 0.9% 50ML 50 ML IV SCH (15:52)
[2017-05-07 16:00] VITALS: O2SAT 98
[2017-05-07] MEDS: CLONAZEPAM 0.5 MG TAB PO SCH (20:48)
[2017-05-07] MEDS: MONTELUKAST SOD 10 MG TAB PO SCH (20:48)
[2017-05-07] MEDS: LITHIUM CARBONATE 300 MG TAB PO SCH (20:49)
[2017-05-07 22:56] VITALS: BP 106/69; PULSE 113; TEMP 36.9; O2SAT 93
[2017-05-08] MEDS: LINACLOTIDE 290 MCG CAP PO SCH (05:36)
[2017-05-08] MEDS: LEVOTHYROXINE 75 MCG TAB PO SCH (05:37)
[2017-05-08] MEDS: AZTREONAM 2000 MG in DEXTROSE 5% 100 ML IV SCH ×3 (05:37→21:36)
[2017-05-08] MEDS: FAMOTIDINE IV INJ 20 MG in SYRINGE 3 ML IV SCH (05:38)
--- NOTE | 2017-05-08 05:47 | Progress Note ---
Subjective Date of Service: late entry for visit May 07, 2017. Subjective Pt evaluation today including: conversation w/ patient, physical exam, chart review, lab review, review of studies (CT leg) Pain: right leg but manageable today PO Intake: fair Voiding: arango catheter in place patient having copious liquid stool per staff - has had at least 10 episodes of liquid bowel movement she also reports having visual and auditory hallucinations when I asked her what day it was she said Monday Problem List Medical Problems: (1) Acute mastitis of right breast Status: Acute (2) Acute pyelonephritis Status: Acute (3) Allergic reaction Status: Acute (4) Allergic reaction Status: Acute (5) Asthma with exacerbation Status: Acute (6) Cellulitis of right buttock Status: Acute (7) Chronic headache Status: Acute (8) Chronic UTI (urinary tract infection) Status: Acute (9) Complicated urinary tract infection Status: Acute (10) Dehydration Status: Acute (11) Delusions Status: Acute (12) Drowsiness Status: Acute (13) Failure of outpatient treatment Status: Acute (14) Gabapentin overdose Status: Acute (15) Hypokalemia Status: Acute (16) Hypokalemia Status: Acute (17) Intractable headache Status: Acute (18) Laceration Status: Acute (19) Low back pain Status: Acute (20) Lower abdominal pain Status: Acute (21) Lower abdominal pain Status: Acute (22) Mood disorder Status: Acute (23) Mood disorder Status: Acute (24) Multiple drug resistant organism (MDRO) culture positive Status: Acute (25) Nausea Status: Acute (26) Nausea Status: Acute (27) Paranoia Status: Acute (28) Pelvic pain Status: Acute (29) Right flank pain Status: Acute (30) Right leg pain Status: Acute (31) Self-harming behavior Status: Acute (32) Shunt malfunction Status: Acute (33) Shunt malfunction Status: Acute (34) Suicidal ideation Status: Acute (35) Suicidal ideation Status: Acute (36) Suprapubic pain Status: Acute (37) Urinary tract infection Status: Acute (38) Urinary tract infection Status: Acute (39) Urinary tract infection Status: Acute (40) UTI (urinary tract infection) Status: Acute (41) UTI (urinary tract infection) Status: Acute (42) Weakness Status: Acute Review of Systems Constitutional: No fever Respiratory: No wheezing, No shortness of breath Cardiac: No chest pain Abdomen: + diarrhea, No pain Objective Vital Signs Date Time Temp Pulse Resp B/P (MAP) Pulse Ox O2 Delivery O2 Flow Rate FiO2 05/08/17 00:05 Room Air 05/07/17 22:56 36.9 113 20 106/69 (81) 93 Room Air 05/07/17 16:00 98 Room Air 05/07/17 14:51 36.4 112 16 116/72 (87) 98 Room Air 05/07/17 08:10 Room Air 05/07/17 07:19 36.9 95 18 98/64 (75) 95 Room Air Physical Exam General Appearance: no apparent distress, + obese ENT: pharynx normal Neck: no JVD Respiratory/Chest: lungs clear, no respiratory distress, no accessory muscle use Cardiovascular: no gallop, no murmur, + tachycardia Abdomen: normal bowel sounds, non tender, no organomegaly, + distended Extremities: no pedal edema, + pertinent finding (b/l BKA) Neurologic/Psychiatric: alert, + disoriented Skin: + pertinent finding (right posterior thigh ulcer - aquacel in place; wound bed pink with some exudate; no odor; edges with granulation) Laboratory Results Last 24 Hours Test 05/07/17 09:59 Sodium Level 141 mmol/L Potassium Level 2.9 mmol/L Chloride Level 107 mmol/L Carbon Dioxide Level 25 mmol/L Anion Gap 9.0 mmol/L Blood Urea Nitrogen 11 mg/dl Creatinine 0.68 mg/dl Est Creatinine Clear Calc Drug Dose 101.9 ml/min Estimated GFR () 136.0 Estimated GFR (Non- 117.4 BUN/Creatinine Ratio 15.6 Random Glucose 144 mg/dl Calcium Level 9.1 mg/dl Assessment and Plan 32yo female - 1. traumatic wound to the right leg with resulting ulceration, s/p multiple debridements, now with application of wound vac by enterostomy. ID has seen, has recommended ongoing use of IV daptomycin, aztreonam, and flagyl. Recent culture from the wound care center on 05/02 and 05/04 both grew corynebacterium with no additional pathogens. CT leg w/ contrast w/o nec fasc, abscess, etc Cont pain control, IV abx, wound vac. 2. pain, right leg - cont oxycodone 10mg prn, toradol prn, IV morphine prn. 3. constipation - resolved, now with severe diarrhea necessitating use of rectal tube; c. diff toxin sent and was negative. Cont lactinex TID. 4. spina bifida - chronic. 5. morbid obesity w/ BMI 77 6. b/l BKA status 7. h/o VTE - continue xarelto. 8. GERD - cont PPI, added H2 yolanda IV. Improved. Change to PO H2 yolanda tomorrow. 9. chronic urinary retention 2nd to spina bifida - arango exchange [id number]. Flush arango daily. 10. bipolar d/o - continue home meds as previous. Psych consult due to hallucinations. I cannot be sure the hallucinations are from her bipolar or due to hospital psychosis or from encephalopathy from infection vs other. 11. DVT proph - xarelto. 12. hypothyroidism - cont synthroid, most recent TSH compensated. 13. asthma - stable at this time and w/o exacerbation. 14. hypokalemia - still low, likely from diarrhea. replace K recheck K and mag in AM PT, OT evals Continued [facility] stay due to: inadequate oral pain control, ambulation difficulties, multiple IV medications needed Discharge planning: home with home health, home with IV medication
[2017-05-08 06:53] LABS: CALCIUM 8.1 mg/dl (8.5-10.1); CREATININE 0.65 mg/dl (0.60-1.20); POTASSIUM 4.1 mmol/L (3.5-5.1)
[2017-05-08] MEDS: CYANOCOBALAMIN 500 MCG TAB (VIT B-12) PO SCH (08:04)
[2017-05-08] MEDS: QUDEXY PO SCH ×2 (08:06→22:00)
[2017-05-08] MEDS: BENZTROPINE MESYLATE 1 MG TAB PO SCH ×2 (08:08→21:59)
[2017-05-08] MEDS: FLUTICASONE/SALMETEROL (ADVAIR) 500/50 INH 14 PUFF INH SCH ×2 (08:08→21:56)
[2017-05-08] MEDS: METRONIDAZOLE 500 MG TAB PO SCH ×3 (08:10→21:56)
[2017-05-08] MEDS: LACTOBACILLUS ACIDOPHILUS (FLORANEX) TAB PO SCH ×3 (08:11→17:49)
[2017-05-08] MEDS: PANTOprazole SOD 40 MG TAB PO SCH ×2 (08:12→21:58)
[2017-05-08] MEDS: VENLAFAXINE HCL XR 37.5 MG CAPXR PO SCH (08:12)
[2017-05-08] MEDS: hydrOXYzine HCL 25 MG TAB PO SCH ×2 (08:12→21:59)
[2017-05-08] MEDS: FERROUS SULFATE 325 MG TAB PO SCH ×2 (08:12→17:49)
[2017-05-08] MEDS: SENNA 8.6 MG TAB PO SCH (08:12)
[2017-05-08] MEDS: GABAPENTIN 300 MG CAP PO SCH ×3 (08:13→21:58)
[2017-05-08] MEDS: HYOSCYAMINE SULFATE 0.125 MG SL TAB PO SCH ×3 (08:14→21:58)
[2017-05-08] MEDS: CHOLECALCIFEROL 1000 INTER.UNIT TAB PO SCH ×2 (08:14→22:00)
[2017-05-08] MEDS: MULTIVITAMIN TAB PO SCH (08:15)
[2017-05-08] MEDS: LITHIUM CARBONATE 450 MG TABCR PO SCH (08:15)
[2017-05-08] MEDS: RISPERIDONE 1 MG TAB PO SCH ×2 (08:16→21:57)
[2017-05-08] MEDS: POTASSIUM CHLORIDE 20 MEQ TABCR PO SCH (08:17)
[2017-05-08] MEDS: DOCUSATE SODIUM 100 MG CAP PO SCH ×2 (08:20→21:00)
[2017-05-08] MEDS: BOOST BREEZE NUTRITION DRINK 1 BOX PO SCH (08:21)
[2017-05-08 08:29] VITALS: BP 142/77; PULSE 83; TEMP 36.7; O2SAT 96
[2017-05-08 08:38] VITALS: O2SAT 96
[2017-05-08] MEDS: MoRPHine SULFATE 2 MG/ML CARP IV PRN (09:22)
--- NOTE | 2017-05-08 11:53 | Clinical Documentation Query ---
CLINICAL DOCUMENTATION QUERY The patient has 42 "acute" problems. Coders currently ignore this problem lists because it is assumed "irrelevant" and not substantiated in the record. However several diagnoses on problem list appear to be treated that are not addressed in "Assessment and Plan" section of progress note. On the flip side, several "acute" conditions mentioned in problem list appear not to be of clinical significance and not substantiated in "Assessment and Plan." Please update problem list to more accurately define patient's acute, chronic, and resolved conditions. Please clarify and document your clinical opinion in the progress notes and discharge summary. Terms such as "probable", "suspected", "likely", "questionable", "possible", or "still to be ruled out" are acceptable. IF IN AGREEMENT, YOU MUST DOCUMENT ABOVE DIAGNOSTIC STATEMENT IN DAILY PROGRESS NOTES AND DISCHARGE SUMMARY. This document is not part of the patient's record. Thank You, Christiano Carlisle, RN [phone]
[2017-05-08 13:37] VITALS: BP 132/72; PULSE 92; TEMP 36.8; O2SAT 95
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
[2017-05-08 15:02] VITALS: BP 105/71; PULSE 87; TEMP 36.9; O2SAT 97
[2017-05-08] MEDS: DAPTOmycin IV 700 MG in SODIUM CHLORIDE 0.9% 50ML 50 ML IV SCH (17:49)
--- NOTE | 2017-05-08 20:43 | Infectious Disease Progress Nt ---
Progress Note Date of Service May 08, 2017. Subjective Pt evaluation today including: conversation w/ patient, physical exam, chart review, lab review, review of studies, conversation w/ [employer] hyperion consultant, review of inpatient medication list Patient having hallucinations. Complaining of severe pain right leg. Remains afebrile. All Other Systems: Reviewed and Negative Medications RUN DATE: 05/07/17 [facility] LAB PAGE 1 RUN TIME: 1190 Specimen Inquiry PATIENT: LUCERO BERRIOS LOC: [facility] U # : [id number] AGE/SX: 32/F ROOM: [facility] REG : 05/04/[address]: Nasir Farmer MD : [id number] BED: 2 DIS : STATUS: ADM IN TLOC: SPEC #: [id number] AUGUSTUS: 05/07/17-1220 STATUS: COMP REQ #: [id number] RECD: 05/07/[address]: Nasir Farmer MD SOURCE: STOOL ENTR: 05/07/17-1253 [facility] DR: Gela Boone M.D. SPDESC: Sourav Sauceda MD, Roy ., M.D. ORDERED: CDIFF TOXIN B COMMENTS: Has Specimen Been Obtained/Collected? Y Procedure Result Verified Site CDIFF TOXIN B GENE*(2 YR OR >) Final 05/07/17-1439 No C. difficile toxin B gene detected Current Inpatient Medications Medications (Trade) Dose Ordered Sig/Brenna Route Start Time Stop Time Status Last Admin Dose Admin Benztropine Mesylate (Cogentin Tab) 1 mg BID PO 05/04/17 21:00 06/03/17 20:59 05/08/17 08:08 1 MG Clonazepam (Klonopin Tab) 0.5 mg HS PO 05/04/17 21:00 06/03/17 20:59 05/07/17 20:48 0.5 MG Cyanocobalamin (Vitamin B-12 Tab) 500 mcg DAILY PO 05/05/17 09:00 06/04/17 08:59 05/08/17 08:04 500 MCG Docusate Sodium (coLACE CAP) 100 mg BID PRN PO 05/04/17 16:45 06/03/17 16:44 Salmeterol Xinafoate/ Fluticasone (Advair Diskus 500/50 Inh) 1 puff BID INH 05/04/17 21:00 06/03/17 20:59 05/08/17 08:08 1 PUFF Gabapentin (Neurontin Cap) 300 mg TID PO 05/04/17 21:00 06/03/17 20:59 05/08/17 13:45 300 MG Hydroxyzine HCl (Vistaril Tab) 25 mg QAM PO 05/05/17 09:00 06/04/17 08:59 05/08/17 08:12 25 MG Hyoscyamine Sulfate (Levsin Tab) 0.125 mg TID PO 05/04/17 21:00 06/03/17 20:59 05/08/17 13:45 0.125 MG Indomethacin (Indocin Cap) 25 mg Q12H PRN PO 05/04/17 16:45 06/03/17 16:44 Levothyroxine Sodium (Synthroid Tab) 75 mcg DAILYBB PO 05/05/17 06:00 06/04/17 05:59 05/08/17 05:37 75 MCG Metuchen Carbonate (Eskalith Cr Tab) 450 mg QAM PO 05/05/17 09:00 06/04/17 08:59 05/08/17 08:15 450 MG Meclizine HCl (Antivert Tab) 25 mg TID PRN PO 05/04/17 16:45 06/03/17 16:44 Metronidazole (Flagyl Tab) 500 mg TID PO 05/04/17 21:00 05/14/17 20:59 05/08/17 13:45 500 MG Montelukast Sodium (Singulair Tab) 10 mg HS PO 05/04/17 21:00 06/03/17 20:59 05/07/17 20:48 10 MG Multivitamins (Multivitamin Tab) 1 tab DAILY PO 05/05/17 09:00 06/04/17 08:59 05/08/17 08:15 1 TAB Ondansetron HCl (Zofran Odt) 4 mg Q8 PRN SL 05/04/17 16:45 06/03/17 16:44 05/05/17 18:24 4 MG Pantoprazole Sodium (Protonix Tab) 40 mg AMHS PO 05/04/17 21:00 06/03/17 20:59 05/08/17 08:12 40 MG Risperidone (Risperdal Tab) 1 mg QAM PO 05/05/17 09:00 06/04/17 08:59 05/08/17 08:16 1 MG Senna (Senokot Tab) 8.6 mg DAILY PRN PO 05/04/17 16:45 06/03/17 16:44 Venlafaxine HCl (effeXOR EXTENDED REL CAP) 37.5 mg DAILY PO 05/05/17 09:00 06/04/17 08:59 05/08/17 08:12 37.5 MG Albuterol (Ventolin Hfa Inhaler) 2 puffs Q4H PRN INH 05/04/17 17:15 06/03/17 17:14 Miscellaneous Information (Order Awaiting Action) 1 ea QS N/A 05/05/17 00:00 06/04/17 00:00 Ferrous Sulfate (Feosol Tab) 325 mg BIDM PO 05/04/17 17:45 06/03/17 17:44 05/08/17 17:49 325 MG Hydroxyzine HCl (Vistaril Tab) 50 mg HS PO 05/04/17 21:00 06/03/17 20:59 05/07/17 20:48 50 MG Lactobacillus Acidophilus (Floranex Tab) 4 tab TIDM PO 05/04/17 17:45 06/03/17 17:44 05/08/17 17:49 4 TAB Acetaminophen (Tylenol Tab) 650 mg Q4H PRN PO 05/04/17 17:00 06/03/17 16:59 Al Hydrox/Mg Hydrox/Simethicone (Maalox Max Susp) 15 ml Q4H PRN PO 05/04/17 17:00 06/03/17 16:59 Magnesium Hydroxide (Milk Of Magnesia Susp) 30 ml Q6H PRN PO 05/04/17 17:00 06/03/17 16:59 Polyethylene (Miralax Powder Packet) 17 gm DAILY PRN PO 05/04/17 17:00 06/03/17 16:59 Ondansetron HCl (Zofran Inj) 4 mg Q6H PRN IV 05/04/17 17:00 06/03/17 16:59 05/07/17 15:50 4 MG Non-Formulary Medication (Non-Formulary Patient'S Own Med) 1 ea BID PO 05/04/17 21:00 06/03/17 20:59 05/08/17 08:06 1 EA Linaclotide (Linzess) 290 mcg DAILYBB PO 05/05/17 06:00 06/04/17 05:59 05/07/17 05:38 290 MCG Aztreonam 2000 mg/ Dextrose 110 ml @ 110 mls/hr Q8H IV 05/04/17 22:00 05/11/17 23:59 05/08/17 14:00 110 MLS/HR Daptomycin 700 mg/ Sodium Chloride 64 ml @ 120 mls/hr Q24H IV 05/05/17 16:00 05/15/17 15:59 05/08/17 17:49 120 MLS/HR Metuchen Carbonate (Metuchen Carbonate Tab) 600 mg HS PO 05/04/17 21:00 06/03/17 20:59 05/07/17 20:49 600 MG Heparin Sodium (Porcine) (Heparin 10 Unit/ ml 5 ml Flush) 5 ml PRN PRN FLUSH 05/04/17 20:00 06/03/17 19:59 05/08/17 19:48 5 ML Morphine Sulfate (MoRPHine SULFATE INJ) 4 mg Q4H PRN IV 05/04/17 21:15 05/18/17 21:14 05/07/17 11:28 4 MG Morphine Sulfate (MoRPHine SULFATE INJ) 2 mg Q4H PRN IV 05/04/17 21:15 05/18/17 21:14 05/08/17 09:22 2 MG Enteral Nutritional Formula (Boost Breeze Nutritional Drink) 1 box DAILY PO 05/06/17 09:00 06/05/17 08:59 Oxycodone HCl (Roxicodone Immediate Rel Tab) 10 mg Q6H PRN PO 05/05/17 15:30 05/18/17 16:44 05/06/17 10:13 10 MG Ketorolac Tromethamine (Toradol Inj) 30 mg Q6H PRN IV 05/05/17 15:30 05/10/17 15:29 Docusate Sodium (coLACE CAP) 100 mg BID PO 05/05/17 21:00 06/04/17 20:59 05/07/17 20:49 100 MG Senna (Senokot Tab) 17.2 mg QAM PO 05/05/17 16:30 06/04/17 16:29 05/07/17 08:24 17.2 MG Cholecalciferol (Vitamin D Tab) 2,000 inter.unit BID PO 05/05/17 21:00 06/04/17 20:59 05/08/17 08:14 2,000 INTER.UNIT Ioversol (Optiray 320) 100 ml UD PRN IV 05/06/17 13:00 05/10/17 12:59 Potassium Chloride (Klor-Con Tab) 40 meq QAM PO 05/09/17 09:00 06/06/17 11:59 Famotidine (Pepcid Tab) 20 mg BID PO 05/08/17 21:00 06/07/17 20:59 Risperidone (Risperdal Tab) 2.5 mg HS PO 05/08/17 21:00 06/07/17 20:59 Objective Vital Signs Date Time Temp Pulse Resp B/P (MAP) Pulse Ox O2 Delivery O2 Flow Rate FiO2 05/08/17 16:25 Room Air 05/08/17 15:02 36.9 87 20 105/71 (82) 97 Room Air 05/08/17 13:37 36.8 92 22 132/72 (92) 95 Room Air 05/08/17 08:38 96 Room Air 05/08/17 08:29 36.7 83 22 142/77 (98) 96 Room Air 05/08/17 08:00 Room Air 05/08/17 00:05 Room Air 05/07/17 22:56 36.9 113 20 106/69 (81) 93 Room Air Physical Exam General Appearance: WD/WN, + mild distress Eyes: normal inspection, sclerae normal ENT: normal ENT inspection, pharynx normal Neck: supple, no adenopathy, trachea midline Respiratory/Chest: chest non-tender, lungs clear, normal breath sounds, no respiratory distress Cardiovascular: regular rate, rhythm, no gallop, no murmur Abdomen: normal bowel sounds, non tender, soft, no organomegaly Extremities: normal capillary refill, + pertinent finding (Wound VAC in place right thigh) Neurologic/Psychiatric: alert, oriented x 3 Skin: normal color, no rash, + pertinent finding (No worsening cellulitis right leg) Lymphatic: no adenopathy Laboratory Results Last 24 Hours Test 05/08/17 06:20 Sodium Level 141 mmol/L Potassium Level 4.1 mmol/L Chloride Level 113 mmol/L Carbon Dioxide Level 20 mmol/L Anion Gap 8.0 mmol/L Blood Urea Nitrogen 7 mg/dl Creatinine 0.65 mg/dl Est Creatinine Clear Calc Drug Dose 106.6 ml/min Estimated GFR () 138.1 Estimated GFR (Non- 119.1 BUN/Creatinine Ratio 10.6 Random Glucose 144 mg/dl Calcium Level 8.1 mg/dl Magnesium Level 2.0 mg/dl Assessment and Plan Infected right thigh wound with previous cultures growing corynebacterium, repeat cultures are pending. Patient be continued on broad-spectrum antibiotics with daptomycin, aztreonam, and metronidazole given her multiple allergies. Continue with irrigating wound VAC. Will follow.
[2017-05-08] MEDS: MONTELUKAST SOD 10 MG TAB PO SCH (21:56)
[2017-05-08] MEDS: CLONAZEPAM 0.5 MG TAB PO SCH (21:56)
[2017-05-08] MEDS: LITHIUM CARBONATE 300 MG TAB PO SCH (21:59)
[2017-05-08] MEDS: FAMOTIDINE 20 MG TAB PO SCH (22:00)
--- NOTE | 2017-05-08 22:07 | Progress Note ---
Subjective Date of Service: May 08, 2017. Subjective Pt evaluation today including: conversation w/ patient, conversation w/ family (mother by phone), physical exam, chart review, lab review, review of inpatient medication list Pain: thigh but no worse than previous PO Intake: normal Voiding: arango catheter in place no issues overnight GERD symptoms resolved stool output via the rectal tube much improved no abdominal pain still hearing voices and seeing things in the room Problem List Medical Problems: (1) Acute mastitis of right breast Status: Acute (2) Acute pyelonephritis Status: Acute (3) Allergic reaction Status: Acute (4) Allergic reaction Status: Acute (5) Asthma with exacerbation Status: Acute (6) Cellulitis of right buttock Status: Acute (7) Chronic headache Status: Acute (8) Chronic UTI (urinary tract infection) Status: Acute (9) Complicated urinary tract infection Status: Acute (10) Dehydration Status: Acute (11) Delusions Status: Acute (12) Drowsiness Status: Acute (13) Failure of outpatient treatment Status: Acute (14) Gabapentin overdose Status: Acute (15) Hypokalemia Status: Acute (16) Hypokalemia Status: Acute (17) Intractable headache Status: Acute (18) Laceration Status: Acute (19) Low back pain Status: Acute (20) Lower abdominal pain Status: Acute (21) Lower abdominal pain Status: Acute (22) Mood disorder Status: Acute (23) Mood disorder Status: Acute (24) Multiple drug resistant organism (MDRO) culture positive Status: Acute (25) Nausea Status: Acute (26) Nausea Status: Acute (27) Paranoia Status: Acute (28) Pelvic pain Status: Acute (29) Right flank pain Status: Acute (30) Right leg pain Status: Acute (31) Self-harming behavior Status: Acute (32) Shunt malfunction Status: Acute (33) Shunt malfunction Status: Acute (34) Suicidal ideation Status: Acute (35) Suicidal ideation Status: Acute (36) Suprapubic pain Status: Acute (37) Urinary tract infection Status: Acute (38) Urinary tract infection Status: Acute (39) Urinary tract infection Status: Acute (40) UTI (urinary tract infection) Status: Acute (41) UTI (urinary tract infection) Status: Acute (42) Weakness Status: Acute Review of Systems Constitutional: No fever Respiratory: No shortness of breath Cardiac: No chest pain Abdomen: No pain Objective Vital Signs Date Time Temp Pulse Resp B/P (MAP) Pulse Ox O2 Delivery O2 Flow Rate FiO2 05/08/17 16:25 Room Air 05/08/17 15:02 36.9 87 20 105/71 (82) 97 Room Air 05/08/17 13:37 36.8 92 22 132/72 (92) 95 Room Air 05/08/17 08:38 96 Room Air 05/08/17 08:29 36.7 83 22 142/77 (98) 96 Room Air 05/08/17 08:00 Room Air 05/08/17 00:05 Room Air 05/07/17 22:56 36.9 113 20 106/69 (81) 93 Room Air Physical Exam General Appearance: no apparent distress, + obese ENT: pharynx normal Neck: no JVD Respiratory/Chest: lungs clear, no respiratory distress, no accessory muscle use Cardiovascular: regular rate, rhythm, no gallop, no murmur Abdomen: normal bowel sounds, non tender, soft, no organomegaly Extremities: + pertinent finding (b/l BKA) Neurologic/Psychiatric: alert, + disoriented (thinks it is Monday but knows she is in the hospital ) Skin: + pertinent finding (woundvac in place, right posterior thigh; mild dry skin on lateral aspect of right thigh ) Laboratory Results Last 24 Hours Test 05/08/17 06:20 Sodium Level 141 mmol/L Potassium Level 4.1 mmol/L Chloride Level 113 mmol/L Carbon Dioxide Level 20 mmol/L Anion Gap 8.0 mmol/L Blood Urea Nitrogen 7 mg/dl Creatinine 0.65 mg/dl Est Creatinine Clear Calc Drug Dose 106.6 ml/min Estimated GFR () 138.1 Estimated GFR (Non- 119.1 BUN/Creatinine Ratio 10.6 Random Glucose 144 mg/dl Calcium Level 8.1 mg/dl Magnesium Level 2.0 mg/dl Assessment and Plan 32yo female - 1. traumatic wound to the right leg with resulting ulceration, s/p multiple debridements, now with application of wound vac by enterostomy. ID has seen, has recommended ongoing use of IV daptomycin, aztreonam, and flagyl. Recent cultures from the wound care center on 05/02 and 05/04 both grew corynebacterium with no additional pathogens. CT leg w/ contrast w/o nec fasc, abscess, etc Cont pain control, IV abx, wound vac. Dr. Pak to reevaluate the wound on Monday of this week. 2. pain, right leg - cont oxycodone 10mg prn, toradol prn, IV morphine prn. 3. constipation - resolved, now with severe diarrhea necessitating use of rectal tube; c. diff toxin sent and was negative. Cont lactinex TID. Leave rectal tube until output has slowed considerably. High chance of spillage of stool into her wound if diarrhea persists. 4. spina bifida - chronic. 5. morbid obesity w/ BMI 77 6. b/l BKA status 7. 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 Resume xarelto 20mg daily. 8. GERD - improved. cont PPI and H2 yolanda. 9. chronic urinary retention 2nd to spina bifida - arango exchange [id number]. Flush arango daily. 10. bipolar d/o - continue home meds as previous. Psych consult for hallucinations appreciated. I cannot be sure the hallucinations are from her bipolar or due to hospital psychosis or from encephalopathy from infection vs other. At any rate psych has increased her risperdal at HS. 11. DVT proph - resume xarelto. 12. hypothyroidism - cont synthroid, most recent TSH compensated. 13. asthma - stable at this time and w/o exacerbation. 14. hypokalemia - resolved. cut back potassium dose to once daily. recheck BMP am PT, OT jolynn mother updated 05/08/17 Continued [facility] stay due to: multiple IV medications needed, other (wound care, righ thigh ) Discharge planning: home with home health, home with IV medication
[2017-05-08] MEDS ORDERED: RIVAROXABAN 20 MG TAB PO ONE (23:00)
[2017-05-09 00:44] VITALS: BP 103/64; PULSE 87; TEMP 36.8; O2SAT 97
[2017-05-09] MEDS: OXYCODONE HCL IR 5 MG TAB (IMMEDIATE RELEASE) PO PRN ×2 (00:46→16:34)
[2017-05-09] MEDS: LINACLOTIDE 290 MCG CAP PO SCH (06:00)
[2017-05-09] MEDS: LEVOTHYROXINE 75 MCG TAB PO SCH (06:00)
[2017-05-09] MEDS: AZTREONAM 2000 MG in DEXTROSE 5% 100 ML IV SCH ×3 (06:01→21:46)
[2017-05-09 07:00] VITALS: BP 108/66; PULSE 90; TEMP 36.8; O2SAT 91
[2017-05-09] MEDS: GABAPENTIN 300 MG CAP PO SCH ×3 (08:42→21:45)
[2017-05-09] MEDS: ACETAMINOPHEN 325 MG TAB PO PRN (08:42)
[2017-05-09] MEDS: LACTOBACILLUS ACIDOPHILUS (FLORANEX) TAB PO SCH ×3 (08:43→17:30)
[2017-05-09] MEDS: CYANOCOBALAMIN 500 MCG TAB (VIT B-12) PO SCH (08:44)
[2017-05-09] MEDS: CHOLECALCIFEROL 1000 INTER.UNIT TAB PO SCH (08:44)
[2017-05-09] MEDS: HYOSCYAMINE SULFATE 0.125 MG SL TAB PO SCH ×3 (08:44→21:43)
[2017-05-09] MEDS: BENZTROPINE MESYLATE 1 MG TAB PO SCH ×2 (08:44→21:44)
[2017-05-09] MEDS: FAMOTIDINE 20 MG TAB PO SCH ×2 (08:44→21:44)
[2017-05-09] MEDS: METRONIDAZOLE 500 MG TAB PO SCH ×3 (08:45→21:43)
[2017-05-09] MEDS: FLUTICASONE/SALMETEROL (ADVAIR) 500/50 INH 14 PUFF INH SCH ×2 (08:45→21:45)
[2017-05-09] MEDS: TRIAMCINOLONE ACET 0.1% CR 80 GM TUBE EXT SCH ×3 (08:45→21:46)
[2017-05-09] MEDS: ALBUTEROL HFA 8 GM INHALER INH PRN (08:45)
[2017-05-09] MEDS: MULTIVITAMIN TAB PO SCH (08:46)
[2017-05-09] MEDS: FERROUS SULFATE 325 MG TAB PO SCH ×2 (08:46→17:30)
[2017-05-09] MEDS: DOCUSATE SODIUM 100 MG CAP PO SCH ×2 (08:46→21:00)
[2017-05-09] MEDS: BOOST BREEZE NUTRITION DRINK 1 BOX PO SCH (08:46)
[2017-05-09] MEDS: RISPERIDONE 1 MG TAB PO SCH ×2 (08:47→21:45)
[2017-05-09] MEDS: LITHIUM CARBONATE 450 MG TABCR PO SCH (08:47)
[2017-05-09] MEDS: POTASSIUM CHLORIDE 20 MEQ TABCR PO SCH (08:48)
[2017-05-09] MEDS: hydrOXYzine HCL 25 MG TAB PO SCH ×2 (08:48→21:43)
[2017-05-09] MEDS: SENNA 8.6 MG TAB PO SCH (08:49)
[2017-05-09] MEDS: VENLAFAXINE HCL XR 37.5 MG CAPXR PO SCH (08:49)
[2017-05-09] MEDS: PANTOprazole SOD 40 MG TAB PO SCH ×2 (08:50→21:42)
[2017-05-09] MEDS: QUDEXY PO SCH ×2 (08:55→21:46)
[2017-05-09 09:20] LABS: HEMATOCRIT 35.9 % (37-47); HEMOGLOBIN 10.9 g/dL (12.0-16.0); MEAN CELL VOLUME 97.3 fL (80-100); MEAN CORPUSCULAR HEMOGLOBIN 29.5 pg (25-34); MEAN CORPUSCULAR HGB CONC 30.4 g/dl (32-36); MEAN PLATELET VOLUME 9.8 fL (7.4-10.4); PLATELET COUNT 263 K/uL (130-400); RED CELL DISTRIBUTION WIDTH CV 17.5 % (11.5-14.5); RED CELL DISTRIBUTION WIDTH SD 62.4 fL (36.4-46.3); WHITE BLOOD COUNT 7.54 K/uL (4.8-10.8)
[2017-05-09 09:52] LABS: CALCIUM 8.8 mg/dl (8.5-10.1); CREATININE 0.56 mg/dl (0.60-1.20); POTASSIUM 3.4 mmol/L (3.5-5.1)
[2017-05-09] MEDS ORDERED: RISPERIDONE 0.5 MG TAB PO PRN (10:45)
[2017-05-09] MEDS: ONDANSETRON 4MG OD TAB SL PRN (11:47)
[2017-05-09] MEDS ORDERED: ONDANSETRON 4MG OD TAB SL PRN (13:00)
[2017-05-09] MEDS: NYSTATIN POWDER 15GM BTL EXT SCH ×2 (14:08→21:46)
[2017-05-09] MEDS: DAPTOmycin IV 700 MG in SODIUM CHLORIDE 0.9% 50ML 50 ML IV SCH (15:48)
[2017-05-09 15:54] VITALS: BP 108/62; PULSE 64; TEMP 36.5; O2SAT 95
[2017-05-09] MEDS: RIVAROXABAN 20 MG TAB PO SCH (17:30)
[2017-05-09] MEDS: KETOROLAC TROMETHAMINE 30 MG/ML VIAL IV PRN (17:39)
--- NOTE | 2017-05-09 17:41 | Progress Note ---
Subjective Date of Service: May 09, 2017. Subjective pt is lethargic but did have a night without much sleep, hallucinations are improved today, mom and dad are at bedside and updated Problem List Medical Problems: (1) Acute mastitis of right breast Status: Acute (2) Acute pyelonephritis Status: Acute (3) Allergic reaction Status: Acute (4) Allergic reaction Status: Acute (5) Asthma with exacerbation Status: Acute (6) Cellulitis of right buttock Status: Acute (7) Chronic headache Status: Acute (8) Chronic UTI (urinary tract infection) Status: Acute (9) Complicated urinary tract infection Status: Acute (10) Dehydration Status: Acute (11) Delusions Status: Acute (12) Drowsiness Status: Acute (13) Failure of outpatient treatment Status: Acute (14) Gabapentin overdose Status: Acute (15) Hypokalemia Status: Acute (16) Hypokalemia Status: Acute (17) Intractable headache Status: Acute (18) Laceration Status: Acute (19) Low back pain Status: Acute (20) Lower abdominal pain Status: Acute (21) Lower abdominal pain Status: Acute (22) Mood disorder Status: Acute (23) Mood disorder Status: Acute (24) Multiple drug resistant organism (MDRO) culture positive Status: Acute (25) Nausea Status: Acute (26) Nausea Status: Acute (27) Paranoia Status: Acute (28) Pelvic pain Status: Acute (29) Right flank pain Status: Acute (30) Right leg pain Status: Acute (31) Self-harming behavior Status: Acute (32) Shunt malfunction Status: Acute (33) Shunt malfunction Status: Acute (34) Suicidal ideation Status: Acute (35) Suicidal ideation Status: Acute (36) Suprapubic pain Status: Acute (37) Urinary tract infection Status: Acute (38) Urinary tract infection Status: Acute (39) Urinary tract infection Status: Acute (40) UTI (urinary tract infection) Status: Acute (41) UTI (urinary tract infection) Status: Acute (42) Weakness Status: Acute Review of Systems Constitutional: No fever, No chills Respiratory: No cough, No sputum Cardiac: No chest pain, No orthopnea Abdomen: No pain, No nausea, No vomiting, No diarrhea Musculoskeletal: No joint pain, No muscle pain, No swelling Neurologic: + weakness Objective Vital Signs Date Time Temp Pulse Resp B/P (MAP) Pulse Ox O2 Delivery O2 Flow Rate FiO2 05/09/17 15:54 36.5 64 18 108/62 (77) 95 Room Air 05/09/17 08:30 Room Air 05/09/17 07:00 36.8 90 20 108/66 (80) 91 Room Air 05/09/17 00:44 36.8 87 20 103/64 (77) 97 Room Air 05/09/17 00:40 Room Air Physical Exam General Appearance: + mild distress (lethargic), + obese Eyes: PERRL, EOMI Respiratory/Chest: + decreased breath sounds, + accessory muscle use Cardiovascular: regular rate, rhythm, no murmur Abdomen: normal bowel sounds, non tender, soft Extremities: + pertinent finding (b/l amputee, wound with vac in place right posterior thigh, surrounding redness) Neurologic/Psychiatric: alert, oriented x 3 Laboratory Results Last 24 Hours Test 05/09/17 08:56 White Blood Count 7.54 K/uL Red Blood Count 3.69 M/uL Hemoglobin 10.9 g/dL Hematocrit 35.9 % Mean Corpuscular Volume 97.3 fL Mean Corpuscular Hemoglobin 29.5 pg Mean Corpuscular Hemoglobin Concent 30.4 g/dl RDW Standard Deviation 62.4 fL RDW Coefficient of Variation 17.5 % Platelet Count 263 K/uL Mean Platelet Volume 9.8 fL Sodium Level 140 mmol/L Potassium Level 3.4 mmol/L Chloride Level 110 mmol/L Carbon Dioxide Level 22 mmol/L Anion Gap 8.0 mmol/L Blood Urea Nitrogen 8 mg/dl Creatinine 0.56 mg/dl Est Creatinine Clear Calc Drug Dose 123.7 ml/min Estimated GFR () 145.0 Estimated GFR (Non- 125.1 BUN/Creatinine Ratio 13.3 Random Glucose 136 mg/dl Calcium Level 8.8 mg/dl Assessment and Plan 32yo female -traumatic posterior right thigh wound with history of multiple drug resistant infections in the past Traumatic wound to the right leg with resulting ulceration, s/p debridement, application of wound vac by wound care team ID has seen, has recommended ongoing use of IV daptomycin, aztreonam, and flagyl. Recent cultures from the wound care center on 05/02 and 05/04 both grew corynebacterium with no additional pathogens. CT leg w/ contrast w/o nec fasc, abscess, etc Dr. Pak to reevaluate the wound on 05/10 pain, right leg - oxycodone 10mg prn, toradol prn, IV morphine prn has good control constipation - resolved, now with severe diarrhea necessitating use of rectal tube; negative C Diff spina bifida - chronic. morbid obesity w/ BMI 77, affects wound care and pressure, complicated by b/l BKA status h/o VTE - Resume xarelto 20mg daily, this serves as prophylaxis also GERD -no symptoms, cont PPI and H2 yolanda. chronic urinary retention 2nd to spina bifida - arango exchange [id number]. Flush arango daily. this has been her typical portal of infection, now urine is clear bipolar d/o - continue home meds as previous. Psych consult is following for hallucinations and has increased her risperdal at HS, continuing am and prn doses, is somewhat more tired 05/09 hypothyroidism - cont synthroid, most recent TSH compensated. asthma - stable at this time and w/o exacerbation. PT, OT evals Continued [facility] stay due to: multiple IV medications needed, other (wound care, righ thigh ) Discharge planning: home with home health, home with IV medication
[2017-05-09] MEDS: MoRPHine SULFATE 2 MG/ML CARP IV PRN (18:47)
[2017-05-09] MEDS: MONTELUKAST SOD 10 MG TAB PO SCH (21:42)
[2017-05-09] MEDS: LITHIUM CARBONATE 300 MG TAB PO SCH (21:44)
[2017-05-09] MEDS: CLONAZEPAM 0.5 MG TAB PO SCH (21:45)
[2017-05-09 23:27] VITALS: BP 92/56; PULSE 85; TEMP 36.6; O2SAT 95
[2017-05-10] MEDS: LEVOTHYROXINE 75 MCG TAB PO SCH (05:43)
[2017-05-10] MEDS: LINACLOTIDE 290 MCG CAP PO SCH (05:45)
[2017-05-10] MEDS: AZTREONAM 2000 MG in DEXTROSE 5% 100 ML IV SCH ×3 (05:46→21:08)
[2017-05-10 08:25] VITALS: BP 129/72; PULSE 85; TEMP 36.8; O2SAT 95
[2017-05-10 08:47] VITALS: O2SAT 95
[2017-05-10] MEDS: PANTOprazole SOD 40 MG TAB PO SCH ×2 (10:09→21:00)
[2017-05-10] MEDS: SENNA 8.6 MG TAB PO SCH (10:10)
[2017-05-10] MEDS: MULTIVITAMIN TAB PO SCH (10:11)
[2017-05-10] MEDS: POTASSIUM CHLORIDE 20 MEQ TABCR PO SCH (10:11)
[2017-05-10] MEDS: QUDEXY PO SCH ×2 (10:13→20:59)
[2017-05-10] MEDS: CHOLECALCIFEROL 1000 INTER.UNIT TAB PO SCH (10:14)
[2017-05-10] MEDS: LACTOBACILLUS ACIDOPHILUS (FLORANEX) TAB PO SCH ×3 (10:14→17:41)
[2017-05-10] MEDS: DOCUSATE SODIUM 100 MG CAP PO SCH ×2 (10:15→21:00)
[2017-05-10] MEDS: NYSTATIN POWDER 15GM BTL EXT SCH ×3 (10:15→21:10)
[2017-05-10] MEDS: hydrOXYzine HCL 25 MG TAB PO SCH ×2 (10:17→20:59)
[2017-05-10] MEDS: RISPERIDONE 1 MG TAB PO SCH ×2 (10:18→21:04)
[2017-05-10] MEDS: LITHIUM CARBONATE 450 MG TABCR PO SCH (10:19)
[2017-05-10] MEDS: FERROUS SULFATE 325 MG TAB PO SCH ×2 (10:20→17:41)
[2017-05-10] MEDS: CYANOCOBALAMIN 500 MCG TAB (VIT B-12) PO SCH (10:20)
[2017-05-10] MEDS: GABAPENTIN 300 MG CAP PO SCH ×3 (10:20→21:00)
[2017-05-10] MEDS: VENLAFAXINE HCL XR 37.5 MG CAPXR PO SCH (10:20)
[2017-05-10] MEDS: BENZTROPINE MESYLATE 1 MG TAB PO SCH ×2 (10:20→20:59)
[2017-05-10] MEDS: METRONIDAZOLE 500 MG TAB PO SCH ×3 (10:21→20:59)
[2017-05-10] MEDS: HYOSCYAMINE SULFATE 0.125 MG SL TAB PO SCH ×3 (10:21→21:00)
[2017-05-10] MEDS: FAMOTIDINE 20 MG TAB PO SCH ×2 (10:21→21:00)
[2017-05-10] MEDS: TRIAMCINOLONE ACET 0.1% CR 80 GM TUBE EXT SCH ×3 (10:22→21:09)
[2017-05-10] MEDS: FLUTICASONE/SALMETEROL (ADVAIR) 500/50 INH 14 PUFF INH SCH ×2 (10:22→20:53)
[2017-05-10] MEDS: BOOST BREEZE NUTRITION DRINK 1 BOX PO SCH (10:24)
[2017-05-10 11:28] VITALS: BP 114/67; PULSE 88; TEMP 36.5; O2SAT 95
[2017-05-10] MEDS: KETOROLAC TROMETHAMINE 30 MG/ML VIAL IV PRN (11:34)
[2017-05-10] MEDS: OXYCODONE HCL IR 5 MG TAB (IMMEDIATE RELEASE) PO PRN ×2 (13:52→19:56)
[2017-05-10] MEDS: MoRPHine SULFATE 2 MG/ML CARP IV PRN ×2 (14:35→21:09)
[2017-05-10 15:21] VITALS: BP 97/61; PULSE 103; TEMP 36.6; O2SAT 95
[2017-05-10] MEDS ORDERED: LORAZEPAM INJ 1 MG in SYRINGE 0.5 ML IV PRN (16:15)
[2017-05-10] MEDS ORDERED: LORAZEPAM 2 MG/ML 1 ML VIAL IV PRN (16:15)
--- NOTE | 2017-05-10 16:21 | Progress Note ---
Subjective Date of Service: May 10, 2017. Subjective this pt is feeling much better today, but is anxious about removing rectal tube , she has no other issues at this time. for a wound vac removal and revision today Problem List Medical Problems: (1) Acute mastitis of right breast Status: Acute (2) Acute pyelonephritis Status: Acute (3) Allergic reaction Status: Acute (4) Allergic reaction Status: Acute (5) Asthma with exacerbation Status: Acute (6) Cellulitis of right buttock Status: Acute (7) Chronic headache Status: Acute (8) Chronic UTI (urinary tract infection) Status: Acute (9) Complicated urinary tract infection Status: Acute (10) Dehydration Status: Acute (11) Delusions Status: Acute (12) Drowsiness Status: Acute (13) Failure of outpatient treatment Status: Acute (14) Gabapentin overdose Status: Acute (15) Hypokalemia Status: Acute (16) Hypokalemia Status: Acute (17) Intractable headache Status: Acute (18) Laceration Status: Acute (19) Low back pain Status: Acute (20) Lower abdominal pain Status: Acute (21) Lower abdominal pain Status: Acute (22) Mood disorder Status: Acute (23) Mood disorder Status: Acute (24) Multiple drug resistant organism (MDRO) culture positive Status: Acute (25) Nausea Status: Acute (26) Nausea Status: Acute (27) Paranoia Status: Acute (28) Pelvic pain Status: Acute (29) Right flank pain Status: Acute (30) Right leg pain Status: Acute (31) Self-harming behavior Status: Acute (32) Shunt malfunction Status: Acute (33) Shunt malfunction Status: Acute (34) Suicidal ideation Status: Acute (35) Suicidal ideation Status: Acute (36) Suprapubic pain Status: Acute (37) Urinary tract infection Status: Acute (38) Urinary tract infection Status: Acute (39) Urinary tract infection Status: Acute (40) UTI (urinary tract infection) Status: Acute (41) UTI (urinary tract infection) Status: Acute (42) Weakness Status: Acute Review of Systems Constitutional: No fever, No chills Respiratory: No cough, No shortness of breath Cardiac: No chest pain, No edema Abdomen: No pain, No nausea, No vomiting Neurologic: + memory loss, + weakness Objective Vital Signs Date Time Temp Pulse Resp B/P (MAP) Pulse Ox O2 Delivery O2 Flow Rate FiO2 12/6/17 15:21 36.6 103 18 97/61 (73) 95 Room Air 05/10/17 11:28 36.5 88 28 114/67 (83) 95 Room Air 05/10/17 08:47 95 Room Air 05/10/17 08:25 36.8 85 26 129/72 (91) 95 Room Air 05/10/17 00:30 Room Air 05/09/17 23:27 36.6 85 16 92/56 (68) 95 Room Air Physical Exam General Appearance: + mild distress, + obese Eyes: PERRL, EOMI Respiratory/Chest: chest non-tender, lungs clear, normal breath sounds Cardiovascular: regular rate, rhythm, no murmur Abdomen: normal bowel sounds, non tender, soft Neurologic/Psychiatric: alert, oriented x 3 Laboratory Results Last 24 Hours Test 05/10/17 08:33 [place] Level 0.9 mMOL/L Assessment and Plan 32yo female -traumatic posterior right thigh wound with history of multiple drug resistant infections in the past, wound vac in place, wound care physician revision 05/10 Traumatic wound to the right leg with resulting ulceration, s/p debridement, application of wound vac by wound care team ID has seen, has recommended ongoing use of IV daptomycin, aztreonam, and flagyl. Recent cultures from the wound care center on 05/02 and 05/04 both grew corynebacterium with no additional pathogens. CT leg w/ contrast w/o nec fasc, abscess, etc Dr. Pak to reevaluate the wound on 05/10 pain, right leg - oxycodone 10mg prn, toradol prn, IV morphine prn has good control constipation - resolved, previously with severe diarrhea necessitating use of rectal tube; negative C Diff, will remove rectal tube spina bifida - chronic. morbid obesity w/ BMI 77, affects wound care and pressure, complicated by b/l BKA status h/o VTE - Resume xarelto 20mg daily, this serves as prophylaxis also GERD -no symptoms, cont PPI and H2 yolanda. chronic urinary retention 2nd to spina bifida - arango exchange [id number]. Flush arango daily. this has been her typical portal of infection, now urine is clear bipolar d/o - continue home meds as previous. Psych consult is following for hallucinations and has increased her risperdal at HS, continuing am and prn doses, is somewhat more tired 05/09 hypothyroidism - cont Synthroid, most recent TSH compensated. asthma - stable at this time and w/o exacerbation. PT, OT Continued [facility] stay due to: multiple IV medications needed, other (wound care, righ thigh ) Discharge planning: home with home health, home with IV medication
[2017-05-10] MEDS: DAPTOmycin IV 700 MG in SODIUM CHLORIDE 0.9% 50ML 50 ML IV SCH (16:38)
[2017-05-10] MEDS: RIVAROXABAN 20 MG TAB PO SCH (17:40)
[2017-05-10] MEDS: MONTELUKAST SOD 10 MG TAB PO SCH (21:00)
[2017-05-10] MEDS: LITHIUM CARBONATE 300 MG TAB PO SCH (21:00)
[2017-05-10] MEDS: CLONAZEPAM 0.5 MG TAB PO SCH (21:06)
[2017-05-10] MEDS: ACETAMINOPHEN 325 MG TAB PO PRN (21:47)
[2017-05-10 23:40] VITALS: BP 115/72; PULSE 107; TEMP 36.7; O2SAT 92
[2017-05-11] MEDS: AZTREONAM 2000 MG in DEXTROSE 5% 100 ML IV SCH ×2 (05:39→13:53)
[2017-05-11] MEDS: LINACLOTIDE 290 MCG CAP PO SCH (05:39)
[2017-05-11] MEDS: LEVOTHYROXINE 75 MCG TAB PO SCH (05:43)
[2017-05-11 06:33] LABS: CALCIUM 8.6 mg/dl (8.5-10.1); CREATININE 0.59 mg/dl (0.60-1.20); POTASSIUM 3.9 mmol/L (3.5-5.1)
[2017-05-11 07:32] VITALS: BP 126/70; PULSE 101; TEMP 36.7; O2SAT 93
[2017-05-11] MEDS: NYSTATIN POWDER 15GM BTL EXT SCH ×2 (07:54→14:00)
[2017-05-11] MEDS: TRIAMCINOLONE ACET 0.1% CR 80 GM TUBE EXT SCH ×2 (07:54→13:54)
[2017-05-11] MEDS: FERROUS SULFATE 325 MG TAB PO SCH (07:56)
[2017-05-11] MEDS: LACTOBACILLUS ACIDOPHILUS (FLORANEX) TAB PO SCH ×2 (07:56→12:04)
[2017-05-11] MEDS: BOOST BREEZE NUTRITION DRINK 1 BOX PO SCH (07:57)
[2017-05-11] MEDS: OXYCODONE HCL IR 5 MG TAB (IMMEDIATE RELEASE) PO PRN (08:51)
[2017-05-11] MEDS: VENLAFAXINE HCL XR 37.5 MG CAPXR PO SCH (08:52)
[2017-05-11] MEDS: MULTIVITAMIN TAB PO SCH (08:52)
[2017-05-11] MEDS: FLUTICASONE/SALMETEROL (ADVAIR) 500/50 INH 14 PUFF INH SCH (08:52)
[2017-05-11] MEDS: SENNA 8.6 MG TAB PO SCH (08:52)
[2017-05-11] MEDS: PANTOprazole SOD 40 MG TAB PO SCH (08:52)
[2017-05-11] MEDS: CHOLECALCIFEROL 1000 INTER.UNIT TAB PO SCH (08:52)
[2017-05-11] MEDS: DOCUSATE SODIUM 100 MG CAP PO SCH (08:52)
[2017-05-11] MEDS: LITHIUM CARBONATE 450 MG TABCR PO SCH (08:53)
[2017-05-11] MEDS: BENZTROPINE MESYLATE 1 MG TAB PO SCH (08:53)
[2017-05-11] MEDS: CYANOCOBALAMIN 500 MCG TAB (VIT B-12) PO SCH (08:53)
[2017-05-11] MEDS: hydrOXYzine HCL 25 MG TAB PO SCH (08:53)
[2017-05-11] MEDS: POTASSIUM CHLORIDE 20 MEQ TABCR PO SCH (08:53)
[2017-05-11] MEDS: GABAPENTIN 300 MG CAP PO SCH ×2 (08:55→13:59)
[2017-05-11] MEDS: HYOSCYAMINE SULFATE 0.125 MG SL TAB PO SCH ×2 (08:55→13:59)
[2017-05-11] MEDS: QUDEXY PO SCH (08:55)
[2017-05-11] MEDS: METRONIDAZOLE 500 MG TAB PO SCH ×2 (08:56→13:59)
[2017-05-11] MEDS: FAMOTIDINE 20 MG TAB PO SCH (08:57)
[2017-05-11] MEDS: RISPERIDONE 1 MG TAB PO SCH (08:57)
[2017-05-11] MEDS: ALBUTEROL HFA 8 GM INHALER INH PRN (09:05)
[2017-05-11] MEDS: MoRPHine SULFATE 2 MG/ML CARP IV PRN (09:47)
--- NOTE | 2017-05-11 13:30 | Wound Progress Note: Inpatient ---
Wound Progress Note Date of Service May 11, 2017. Subjective Pt evaluation today including: conversation w/ patient, conversation w/ family , physical exam, review of studies Patient is seen today for follow-up evaluation after admission for an extensive traumatic ulceration to the right lower extremity which has been managed in the outpatient environment prior. Patient denies any significant increased pain swelling or redness. Patient denies any fever chills or night sweats. Patient denies any chest pain shortness of breath. Patient has been tolerating the irrigating VAC without difficulty. Objective Vital Signs Date Time Temp Pulse Resp B/P (MAP) Pulse Ox O2 Delivery O2 Flow Rate FiO2 05/11/17 07:45 Room Air 05/11/17 07:32 36.7 101 18 126/70 (88) 93 Room Air 05/10/17 23:55 Room Air 05/10/17 23:40 36.7 107 16 115/72 (86) 92 Room Air 05/10/17 16:40 Room Air 05/10/17 15:21 36.6 103 18 97/61 (73) 95 Room Air Physical Exam Notes: Patient is currently lying in a hospital bed in no acute distress. Patients vital signs were reviewed and found to be unremarkable. Patient is afebrile the ulcerative site in the right posterior thigh region measures 8 x 10.5 x 2 cm. There is no significant central slough noted there is some scattered granulation tissue is evolving in the periphery. Underlying fat tissue is exposed. No periwound erythema or active drainage or odor present at this time. No pain to palpation or fluctuance noted. Laboratory Results Last 24 Hours Test 05/11/17 05:26 Sodium Level 140 mmol/L Potassium Level 3.9 mmol/L Chloride Level 112 mmol/L Carbon Dioxide Level 23 mmol/L Anion Gap 5.0 mmol/L Blood Urea Nitrogen 10 mg/dl Creatinine 0.59 mg/dl Est Creatinine Clear Calc Drug Dose 117.4 ml/min Estimated GFR () 142.5 Estimated GFR (Non- 123.0 BUN/Creatinine Ratio 17.7 Random Glucose 105 mg/dl Calcium Level 8.6 mg/dl Assessment and Plan Assessment: Traumatic wound with resolving cellulitis right lower extremity Plan: At this time no debridement is indicated. He regained VAC will be discontinued and a conventional wound VAC will be applied black foam 125 mm of negative pressure wound VAC change 3 times weekly. At this time the patient could be discharged from the hospital regarding the wound care management and followed up in the outpatient clinic next week. Further infectious disease management will be continued by ID.
[2017-05-11] MEDS ORDERED: [UNRECOGNIZED DRUG - CODE] IV (13:46)
[2017-05-11] MEDS ORDERED: DAPT500I IV (13:46)
[2017-05-11] MEDS ORDERED: SENN1TAB80 PO (13:46)
[2017-05-11] MEDS ORDERED: MRLP17X PO (13:46)
[2017-05-11] MEDS: ONDANSETRON INJ 2 MG/ML 2 ML VIAL IV PRN (13:53)
--- NOTE | 2017-05-11 13:57 | Discharge Instructions ---
Discharge Instructions Date of Service May 11, 2017. Admission Reason for Admission: Right Thigh Wound, Cellulitis Of Right Hip Discharge Discharge Diagnosis / Problem: right posterior thigh wound with surgical debridement Discharge Goals Goal(s): Diagnostic testing, Therapeutic intervention Activity Recommendations Activity Limitations: resume your previous activity . Instructions / Follow-Up Instructions / Follow-Up The big things in flux at discharge: In the hospital you had your Risperdal increased at night from 2 mg to 2.5. we did change RX at discharge hoping a return to your home may help, if hallucinations return consider increasing the dose by 0.5 mg and when you follow up with your prescribing doctor in a week or so, have the RX changed if needed. Your wound will need continued care at the wound care center, there infectious disease can also follow your antibiotics. Your stool regimen has been adjusted, however sometimes returning to home routine and diet will also affect stool patterns, please call if advice is needed to make stool more or less frequent. Consider substituting a vitamin with iron for you multiple vitamin and minerals, I would continue to recommend taking vitamin D in addition to the vitamin with regard to your low levels Current Hospital Diet Patient's current hospital diet: Regular Diet Discharge Diet Recommended Diet: Regular Diet Pending Studies Studies pending at discharge: no Laboratory Results Hemoglobin A1c Test 03/17/17 10:40 Range/Units Estimated Average Glucose 100 mg/dl Hemoglobin A1c 5.1 4.5-5.6 % Lipid Panel Test 03/17/17 10:40 Range/Units Triglycerides Level 161 H 0-150 mg/dl Cholesterol Level 207 H 0-200 mg/dl HDL Cholesterol 51 mg/dl Cholesterol/HDL Ratio 4.1 LDL Cholesterol, Calculated 124 mg/dl Medical Emergencies . Who to Call and When: Medical Emergencies: If at any time you feel your situation is an emergency, please call 911 immediately. . Non-Emergent Contact Non-Emergency issues call your: Primary Care Provider, Specialist (wound care center) Call Non-Emergent contact if: temperature is above 101, your pain is unusual for you . . "Provider Documentation" section prepared by George Powell. . VTE Core Measure Inpt VTE Proph given/why not?: Other Anticoagulation
[2017-05-11] MEDS ORDERED: RXC5 PO (14:18)
[2017-05-11] MEDS ORDERED: RISP1TAB68 PO (14:18)
[2017-05-11] MEDS ORDERED: ZFRI4 IV (14:18)
[2017-05-11 14:39] VITALS: BP 126/70; PULSE 101; TEMP 36.7; O2SAT 93
--- NOTE | 2017-05-11 14:49 | Discharge Summary ---
Discharge Summary Date of Service May 11, 2017. Discharge Summary Admission Date: May 04, 2017 at 16:14 Discharge Date: May 11, 2017 Discharge Disposition: Home with services Principal Diagnosis: right posterior thigh decubitus poa, psychosis Immunizations: Have You Had Influenza Vaccine: Unknown History of Tetanus Vaccine?: Unknown History of Pneumococcal: Unknown History of Hepatitis B Vaccine: Unknown Procedures: surgical debridement of thigh wound Consultations: DR Valderrama from Psychiatry did see and increased risperdal Medication Reconciliation New Medications: Oxycodone HCl (Oxycodone HCl) 5 Mg Tab 10-15 MG PO Q6H, #60 TAB Ondansetron (Ondansetron Hcl) 2 Mg/Ml Inj 4 MG IV Q6H PRN for Nausea, #30 DOSE Polyethylene (Miralax) 17 Gm Pow 17 GM PO DAILY, #60 DOSE Changed Medications: Daptomycin (Daptomycin) 500 Mg Inj 700 MG IV Q24H, #11 DOSE (Medication details modified) Risperidone (Risperdal) 1 Mg Tab 2.5 MG PO HS, #90 DOSE (Changed from: 2 MG; TWO 1 MG TABLETS) TWO and one half 1 MG TABLETS Sennosides (Senna Lax) 8.6 Mg Tab 17.2 MG PO DAILY, #90 DOSE (Changed from: 8.6 MG; Removed Reason) Continued Medications: Albuterol Sulfate (Proair Respiclick) 108 Mcg/Act Aer 2 PUFFS INH Q4-6HRS PRN for SOB/Wheezing Aztreonam (Aztreonam) 2 Gm Inj 2 GM IV Q8 for 14 Days, #33 DOSE (This prescription has been renewed) Benztropine Mesylate (Benztropine Mesylate) 1 Mg Tab 1 MG PO BID Cholecalciferol (Vitamin D) 2,000 Unit Cap 2000 INTER.UNIT PO BID Clonazepam (Klonopin) 0.5 Mg Tab 0.5 MG PO HS Cyanocobalamin (Vitamin B-12) 500 Mcg Tab 500 MCG PO DAILY Dihydroergotamine Mesylate (Migranal) 4 Mg/Ml [place] 1 SPRAY EDIE UD PRN for Migraine ONE SPRAY IN EACH NOSTRIL, REPEAT DOSE AFTER 15 MINUTES IF NEEDED. MAXIMUM 2 DOSES IN 24 HOURS AND 4 DOSES PER 7 DAYS. Docusate Sodium (Dulcolax Stool Softener) 100 Mg Cap 100 MG PO BID PRN for Constipation Ergotamine Tartrate (Ergomar) 2 Mg Sub 2 MG PO 2XWK Ferrous Sulfate (Ferrous Sulfate) 325 Mg Tab 325 MG PO BID Fluticasone Prop/Salmeterol (Advair Diskus 500/50 60 Dose) 1 Ea Aerp 1 PUFF INH BID, INHALER Gabapentin (Gabapentin) 300 Mg Cap 300 MG PO TID Hydroxyzine HCl (Hydroxyzine Pamoate) 25 Mg Tab 50 MG PO HS Hydroxyzine HCl (Hydroxyzine HCl) 25 Mg Tab 25 MG PO QAM Hyoscyamine Sulfate (Levsin) 0.125 Mg Tab 0.125 MG PO TID Indomethacin (Indomethacin) 25 Mg Cap 25 MG PO 2XWK PRN for Headache TAKE THIS MEDICATION WITH FOOD Levothyroxine Sodium (Synthroid) 75 Mcg Tab 75 MCG PO DAILY 1/2 HOUR BEFORE BREAKFAST Linaclotide (Linzess) 290 Mcg Cap 290 MCG PO QAM [place] Carbonate ([place] Carbonate) 600 Mg Cap 600 MG PO QPM, CAP TAKE THIS MEDICATION WITH EVENING MEAL [place] Carbonate Er (Lithobid Ext Rel) 450 Mg Tab 450 MG PO QAM Meclizine Hcl (Meclizine Hcl) 25 Mg Tab 25 MG PO TID PRN for Dizziness or Vertigo, TAB Metronidazole (Flagyl) 500 Mg Tab 500 MG PO TID for 30 Days, #90 TAB 2 Refills Montelukast Sod (Montelukast Sodium) 10 Mg Tab 10 MG PO HS Multiple Vitamin (Multivitamin) 1 Tab Tab 1 TAB PO DAILY, TAB Nystatin (Topical) (Nystop) 100,000 Unit/Gm Pow 1 APPLN TOP UD Ondasetron Odt (Zofran Odt) 4 Mg Tab 4 MG SL Q8 PRN for Nausea, TAB Oxycodone HCl (Oxycodone HCl) 5 Mg Tab 1 TAB PO QID PRN for Pain, #30 TAB take 1 pill for moderate pain, 2 for severe pain do not take with tramadol or hydrocodone Pantoprazole (Protonix) 40 Mg Tab 40 MG PO AMHS TAKE THIS MEDICATION ONCE DAILY 30 MINUTES BEFORE BREALFAST Probiotic Product (Probiotic) 1 Cap Cap 1 CAP PO TID Risperidone (Risperidone) 1 Mg Tab 1 MG PO QAM Rivaroxaban (Xarelto) 20 Mg Tab 20 MG PO DAILY, TAB Topiramate (Qudexy Xr) 100 Mg Cap 100 MG PO BID Venlafaxine Hcl (Venlafaxine Extended Rel) 37.5 Mg Cap 37.5 MG PO DAILY STARTED 04/12/17 Wound Dressings (Hydrofera Blue Foam Dress) 1 Pad Pad 1 EA EXT UD 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 Zolmitriptan (Zomig) 5 Mg Tab 5 MG PO PRN PRN for PRN Discharge Exam Review of Systems: Constitutional: No fever, No chills Respiratory: No cough, No sputum Cardiovascular: No chest pain, No orthopnea Abdomen: No pain, No nausea, No vomiting Integumentary: + new/changing skin lesions, + problem reported Physical Exam: General Appearance: WD/WN, + obese Respiratory/Chest: chest non-tender, lungs clear Cardiovascular: regular rate, rhythm, no murmur Abdomen / GI: normal bowel sounds, non tender, soft Extremities: + pertinent finding (large posterior full thickness) Hospital Course 32yo female -traumatic posterior right thigh wound with 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 Recent cultures from the wound care center on 05/02 and 05/04 both grew corynebacterium with no additional pathogens. CT leg w/ contrast w/o nec fasc, abscess, etc Dr. Pak to reevaluate the wound on 05/11, changed to non irrigating wound vac, will follow in clinic pain, right leg - oxycodone 15mg prn with RX, will consider pain management after discussion with PCP as outpt constipation - resolved, previously with severe diarrhea necessitating use of rectal tube; negative C Diff, rectal exam without impacted stool 05/11 spina bifida - chronic, has supportive care and assitant devices at home. morbid obesity w/ BMI 77, affects wound care and pressure, complicated by b/l BKA status h/o VTE - Resume xarelto 20mg daily, this serves as prophylaxis also GERD -no symptoms, cont PPI and H2 yolanda. chronic urinary retention 2nd to spina bifida - arango exchange [id number]. Flush arango daily. this has been her typical portal of infection, now urine is clear bipolar d/o - continue home meds as previous. Psych consult is following for hallucinations and has increased her risperdal at HS, continuing am and prn doses, hypothyroidism - cont Synthroid, most recent TSH compensated. asthma - stable at this time and w/o exacerbation. Total Time Spent: Greater than 30 minutes This includes examination of the patient, discharge planning, medication reconciliation, and communication with other providers. Discharge Instructions Please refer to the electronic Patient Visit Report (Discharge Instructions) for additional information.
[2017-05-11] MEDS: DAPTOmycin IV 700 MG in SODIUM CHLORIDE 0.9% 50ML 50 ML IV SCH (15:18)
--- NOTE | 2017-05-15 13:06 | EDITING REQUIRED CODING QUERY ---
CODING QUERY To promote full compliance with coding requirements relating to patient care, provider participation is requested in all cases of customer operations intern uncertainty. Please assist us with the question(s) below: Coding Question(s): Spina Bifida patient admitted with cellulitis of right thigh . Regarding the right thigh wound, progress mention that this is a result of trauma. Discharge Summary mentions posterior thigh decubitus ulcer. Please check below the diagnosis that describes what you were treating. Thanks for your help! NOEL Whitehead [facility] Physician's Response(s): posterior thigh decubitus ulcer chronic nonpressure ulcer complicated posttraumatic wound Other/ please document: Principal Diagnosis: "_that condition established after study, to be chiefly responsible for occasioning the admission of the patient to the hospital for care." Co-Existing Principal Diagnosis: "_when two or more diagnoses equally meet the criteria for principal diagnosis as determined by the circumstances of admission, diagnostic work up, and/or therapy provided, and the Alphabetic Index, Tabular List, or another coding guideline does not provide sequencing direction, any one of the diagnoses may be sequenced first." "When the physician has documented what appears to be a current diagnosis in the body of the record, but has not included the diagnosis in the final diagnostic statement, the physician should be asked whether the diagnosis should be added." (Source [facility] 2 QTR90. p3-4)
--- NOTE | 2017-05-15 13:28 | EDITING REQUIRED CODING QUERY ---
CODING QUERY To promote full compliance with coding requirements relating to patient care, provider participation is requested in all cases of manager oracle database uncertainty. Please assist us with the question(s) below: Coding Question(s): Patient with Spina Bifida , bilateral BKA's admitted with celluliis and wound, right upper thigh. Discharge Summary documents Thigh decubitus ulcer ; progress notes mention traumatic posterior thigh wound. Please check below the diagnosis you were treating. Thanks for your help! NOEL Whitehead [facility] Physician's Response(s): Posterior Thigh Decubitus Ulcer xx then was open area after debridement____ Posterior Thigh Traumatic Wound Chronic Non-pressure Ulcer Other/ Please document: Principal Diagnosis: "_that condition established after study, to be chiefly responsible for occasioning the admission of the patient to the hospital for care." Co-Existing Principal Diagnosis: "_when two or more diagnoses equally meet the criteria for principal diagnosis as determined by the circumstances of admission, diagnostic work up, and/or therapy provided, and the Alphabetic Index, Tabular List, or another coding guideline does not provide sequencing direction, any one of the diagnoses may be sequenced first." "When the physician has documented what appears to be a current diagnosis in the body of the record, but has not included the diagnosis in the final diagnostic statement, the physician should be asked whether the diagnosis should be added." (Source [facility]oding [facility] 2 QTR90. p3-4)
[2017-05-19] MEDS ORDERED: FLUC200T4 PO (10:55)
[2017-05-25] MEDS ORDERED: CHOL200010 PO (13:04)
[2017-05-25] MEDS ORDERED: ADVIN50/60 INH (13:04)
[2017-05-25] MEDS ORDERED: TOPI1CAP12 PO (13:18)
[2017-05-25] MEDS ORDERED: MECL1TAB42 PO (13:52)
[2017-05-25] MEDS ORDERED: WOUN1PAD EXT (13:52)
[2017-05-25] MEDS ORDERED: MGRSP NAE (13:52)
[2017-05-25] MEDS ORDERED: ZOLM1TAB3 PO (14:58)
[2017-05-25] MEDS ORDERED: ATR25 PO (14:58)
[2017-05-25] MEDS ORDERED: VTMB12 PO (15:08)
[2017-05-25] MEDS ORDERED: GABA1CAP4 PO (16:40)
[2017-05-25] MEDS ORDERED: HYOS1TAB PO (16:40)
[2017-05-25] MEDS ORDERED: LINA1CAP2 PO (16:40)
[2017-05-25] MEDS ORDERED: RSP1 PO (16:58)
[2017-05-25] MEDS ORDERED: INDO1CAP34 PO (16:58)
[2017-05-25] MEDS ORDERED: LITH1TAB PO (16:58)
[2017-05-25] MEDS ORDERED: SNG10 PO (16:58)
[2017-05-25] MEDS ORDERED: ONDA4TAB10 SL (17:26)
[2017-05-25] MEDS ORDERED: FERR1TAB62 PO (17:26)
[2017-05-25] MEDS ORDERED: CLON0.5T3 PO (17:27)
[2017-05-25] MEDS ORDERED: DOCU-105 PO (17:35)
[2017-06-15] MEDS ORDERED: RISP2TAB22 PO (14:48)
[2017-06-30] MEDS ORDERED: RISP3TAB12 PO (13:26)
== END 2017-05-11 17:15 | disposition home health service (06) | DRG 592 ==
LOC: C.MSW 16:14
PROVIDERS: ADMIT Internal Medicine; ATTEND Internal Medicine
DX: L97.112 Non-pressure chronic ulcer of right thigh with fat layer exposed (principal); G93.40 Encephalopathy, unspecified; L03.115 Cellulitis of right lower limb; S71.101A Unspecified open wound, right thigh, initial encounter; T81.89XA Other complications of procedures, not elsewhere classified, initial encounter; Q05.4 Unspecified spina bifida with hydrocephalus; I96 Gangrene, not elsewhere classified; G82.20 Paraplegia, unspecified; Z68.45 Body mass index [BMI] 70 or greater, adult; Z89.511 Acquired absence of right leg below knee; Z89.512 Acquired absence of left leg below knee; G43.909 Migraine, unspecified, not intractable, without status migrainosus; F31.9 Bipolar disorder, unspecified; J45.909 Unspecified asthma, uncomplicated; K21.9 Gastro-esophageal reflux disease without esophagitis; K31.84 Gastroparesis; Z86.718 Personal history of other venous thrombosis and embolism; Z83.3 Family history of diabetes mellitus; Z86.14 Personal history of Methicillin resistant Staphylococcus aureus infection; Z88.2 Allergy status to sulfonamides; F25.0 Schizoaffective disorder, bipolar type; K59.00 Constipation, unspecified; R33.9 Retention of urine, unspecified; E03.9 Hypothyroidism, unspecified; Z87.440 Personal history of urinary (tract) infections; E87.6 Hypokalemia; E66.01 Morbid (severe) obesity due to excess calories; X58.XXXA Exposure to other specified factors, initial encounter

== ENCOUNTER → 2017-05-15 | Outpatient (CLI) | payer BC, OTHER ==
[~2017-05-15] MED LIST changes: +ADVIN50/60 INH; +ALBU18002 INH; +ATR25 PO; +BENZ-88 PO; +CHOL200010 PO; +CLON0.5T3 PO; +CRFL PO; +DOCU-105 PO; +DOCU-94 PO; +EFF/375 PO; +EFFSR75 PO; +FAMO40TA6 PO; +FERR1TAB62 PO; +FLUC200T4 PO; +FNTTP50 TD; +GABA-1219 PO; +HYOS1TAB PO; +INDO1CAP34 PO; +LEVO75TA5 PO; +LINA1CAP2 PO; +LITH1TAB PO; +LITH600C PO; +MECL1TAB42 PO; +MENTOIN TOP; +MGRSP NAE; +MISCCAP80 PO; +MRLP17X PO; +MTR500 PO; +MULTTAB58 PO; +NYST100010 TOP; +ONDA4TAB10 SL; +OXYC-609 PO; +PANT40TA2 PO; +POLY335019 PO; +POTA-65 PO; +RISP2TAB22 PO; +RISP3TAB12 PO; +RSP1 PO; +RSP2 PO; +SENN-61 PO; +SNG10 PO; +TOPI1CAP12 PO; +VST25HP PO; +VTMB12 PO; +WOUN1PAD EXT; +XPNINS NEB; +XRL20 PO; +ZFRI4 IV; +ZOLM1TAB3 PO; +[UNRECOGNIZED DRUG - CODE] PO
[2017-05-15 19:31] LABS: HEMATOCRIT 35.5 % (37-47); MEAN CELL VOLUME 97.8 fL (80-100); MEAN CORPUSCULAR HEMOGLOBIN 30.3 pg (25-34); MEAN PLATELET VOLUME 9.6 fL (7.4-10.4); PLATELET COUNT 312 K/uL (130-400); RED CELL DISTRIBUTION WIDTH CV 17.3 % (11.5-14.5); RED CELL DISTRIBUTION WIDTH SD 61.8 fL (36.4-46.3); WHITE BLOOD COUNT 9.61 K/uL (4.8-10.8)
[2017-05-15 19:53] LABS: ALBUMIN 2.4 gm/dl (3.4-5.0); ALT/SGPT 19 U/L (12-78); AST/SGOT 14 U/L (15-37); BLOOD UREA NITROGEN 9 mg/dl (7-18); CALCIUM 8.5 mg/dl (8.5-10.1); CARBON DIOXIDE 27 mmol/L (21-32); CREATININE 0.56 mg/dl (0.60-1.20); GLUCOSE 101 mg/dl (70-99); POTASSIUM 3.2 mmol/L (3.5-5.1); SODIUM 141 mmol/L (136-145)
[2017-05-15 19:56] LABS: ALKALINE PHOSPHATASE 95 U/L (45-117); TOTAL PROTEIN 6.4 gm/dl (6.4-8.2)
[2017-05-15 20:12] LABS: BASO % 0.2 %; BASO ABS # 0.02 K/uL (0-0.2); EOS % 5.3 %; EOS ABS # 0.51 K/uL (0-0.5); IG# 0.02 K/uL (0.00-0.02); LYMPH % 17.5 %; LYMPH ABS # 1.68 K/uL (1.2-3.4); MONO % 6.8 %; MONO ABS # 0.65 K/uL (0.11-0.59); NEUT ABS # 6.73 K/uL (1.4-6.5)
== END | disposition home or self-care (01) ==
LOC: C.LABSPEC 18:50
PROVIDERS: ATTEND Internal Medicine
DX: N39.0 Urinary tract infection, site not specified (principal)

== ENCOUNTER → 2017-05-22 | Outpatient (CLI) | payer BC, OTHER ==
[~2017-05-22] MED LIST changes: -GABA-1219 PO; +GABA1CAP4 PO; -RISP3TAB12 PO
[2017-05-22 11:13] LABS: BASO ABS # 0.07 K/uL (0-0.2); EOS % 5.1 %; EOS ABS # 0.36 K/uL (0-0.5); HEMATOCRIT 38.2 % (37-47); HEMOGLOBIN 11.9 g/dL (12.0-16.0); IG# 0.01 K/uL (0.00-0.02); LYMPH % 16.6 %; LYMPH ABS # 1.18 K/uL (1.2-3.4); MEAN CELL VOLUME 98.2 fL (80-100); MEAN CORPUSCULAR HEMOGLOBIN 30.6 pg (25-34); MEAN CORPUSCULAR HGB CONC 31.2 g/dl (32-36); MEAN PLATELET VOLUME 10.1 fL (7.4-10.4); MONO % 7.9 %; MONO ABS # 0.56 K/uL (0.11-0.59); NEUT % 69.3 %; NEUT ABS # 4.92 K/uL (1.4-6.5); PLATELET COUNT 345 K/uL (130-400); RED CELL DISTRIBUTION WIDTH CV 17.1 % (11.5-14.5); RED CELL DISTRIBUTION WIDTH SD 61.3 fL (36.4-46.3)
[2017-05-22 11:24] LABS: ALBUMIN 2.5 gm/dl (3.4-5.0); ALT/SGPT 16 U/L (12-78); BLOOD UREA NITROGEN 9 mg/dl (7-18); CALCIUM 8.8 mg/dl (8.5-10.1); CARBON DIOXIDE 24 mmol/L (21-32); CREATININE 0.59 mg/dl (0.60-1.20); GLUCOSE 108 mg/dl (70-99); POTASSIUM 3.5 mmol/L (3.5-5.1); SODIUM 142 mmol/L (136-145)
[2017-05-22 11:27] LABS: ALKALINE PHOSPHATASE 92 U/L (45-117); AST/SGOT 13 U/L (15-37); TOTAL PROTEIN 6.5 gm/dl (6.4-8.2)
--- NOTE | 2017-06-17 09:27 | CODING QUERY NO DIAGNOSIS ---
TREATMENT RENDERED WITHOUT A DIAGNOSIS : 87 To promote full compliance with coding requirements relating to patient care, physician participation is requested in all cases of medical coder uncertainty. Please assist us with providing a diagnosis/symptom for the test(s) below: A diagnosis/symptom was not documented on your Order. A valid diagnosis/symptom is required to bill all insurances. Please remember that we are unable to code a diagnosis of rule out, probable, possible, questionable, or suspected. Tests that require a diagnosis: DOS: 05/22/17 * COMPREHENSIVE METABO DIAGNOSIS: * CREATINE PHOSPHOKINASE DIAGNOSIS: * CBC WITH AUTO DIFFER DIAGNOSIS: * ERYTHROCYTE SEDIMENT DIAGNOSIS: Provider Signature: Date: Thank you Emily Reyes Health Information Management Once completed, please kindly fax back to [phone] For questions please call [phone]
== END | disposition home or self-care (01) ==
LOC: C.LABSPEC 10:36
PROVIDERS: ATTEND Internal Medicine Infectious Disease
DX: L02.415 Cutaneous abscess of right lower limb (principal)

== ENCOUNTER 2017-05-25 17:50 | Emergency (ER) | payer BC, OTHER ==
[~2017-05-25] VITALS: Ht 119.4 cm; Wt 110.0 kg
[~2017-05-25 17:50] MED LIST changes: -ALBU18002 INH; -BENZ-88 PO; -CRFL PO; -DOCU-94 PO; -EFF/375 PO; -EFFSR75 PO; -FAMO40TA6 PO; -FNTTP50 TD; -LEVO75TA5 PO; -LITH600C PO; -MENTOIN TOP; -MISCCAP80 PO; -MTR500 PO; -MULTTAB58 PO; -NYST100010 TOP; -OXYC-609 PO; -PANT40TA2 PO; -POLY335019 PO; -POTA-65 PO; -RSP2 PO; -SENN-61 PO; -VST25HP PO; -XPNINS NEB; -XRL20 PO; -[UNRECOGNIZED DRUG - CODE] PO
[2017-05-25 17:53] VITALS: Ht 119.4 cm; Wt 110.0 kg
[2017-05-25] MEDS ORDERED: MULTTAB58 PO (18:07)
[2017-05-25] MEDS ORDERED: ONDANSETRON INJ 2 MG/ML 2 ML VIAL IV STA (18:15)
[2017-05-25] MEDS ORDERED: HYDROmorphone INJ 1 MG/ML SYR IV STA ×3 (18:15→21:25)
[2017-05-25] MEDS ORDERED: KETOROLAC TROMETHAMINE 30 MG/ML VIAL IV STA (18:15)
--- NOTE | 2017-05-25 18:22 | EMERGENCY ROOM VISIT NOTE ---
History Report prepared by James: Seng Welsh Under the Supervision of: Dr. Himanshu Chery M.D. First contact with patient: 17:56 Chief Complaint: URINARY SYMPTOMS Stated Complaint: BLADDER PAIN AND RT LEG PAIN Nursing Triage Summary: pt took a UA and stool sample in to clinic today and has not heard from dr art office with results so they came here History of Present Illness The patient is a 32 year old female who presents to the Emergency Room with complaints of constant right lower extremity pain that began 7 weeks ago. She rates her pain as a 10/10 in severity. The patient states that about 7 weeks ago she fell over an electrical outlet while building a house. She reports that she fell out of her chair and hit her leg, which resulted in a black aleena on her right leg. The patient states that the aleena turned into a blister, which eventually popped. She states that she went to wound care where she had a wound vac. The patient states that she was released form the hospital on May 07 and has been using the wound vac. The patient states that she last changed her wound vac yesterday. She states that she has been using Daptomycin, Flagyl, and Aztreonam, which was prescribed by Dr. Sauceda. The patient reports that she has also been experiencing abdominal pain and is concerned that she has another bladder infection. She states that she dropped off a urine and stool sample at the clinic today, but denies any results, which is why she came to the ED. The patient reports that she takes a blood thinner. Source of History: patient Onset: 7 weeks ago Position: leg (right) Symptom Intensity: 10/10 Timing: constant Associated Symptoms: + abdominal pain Review of Systems See HPI for pertinent positives & negatives. A total of 10 systems reviewed and were otherwise negative. 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 (16) Osteomyelitis (17) Pulmonary embolism (18) Shunt placement with revision x8 (19) Spina bifida (20) UTI (urinary tract infection) Surgical Problems: (1) S/P BKA (below knee amputation) bilateral Family History Cancer Diabetes mellitus Lung disease Social History Smoking Status: Never Smoker Alcohol Use: none Drug Use: none Marital Status: single Housing Status: lives with family Occupation Status: disabled Current/Historical Medications Scheduled Aztreonam (Aztreonam), 2 GM IV Q8 Benztropine Mesylate (Benztropine Mesylate), 1 MG PO BID Cholecalciferol (Vitamin D), 2,000 INTER.UNIT PO BID Clonazepam (Klonopin), 0.5 MG PO HS Cyanocobalamin (Vitamin B-12), 500 MCG PO DAILY Daptomycin (Daptomycin), 700 MG IV Q24H Ergotamine Tartrate (Ergomar), 2 MG PO 2XWK Famotidine (Pepcid), 40 MG PO DAILY Fentanyl (Duragesic), 50 MCG TD CQ72HR Ferrous Sulfate (Ferrous Sulfate), 325 MG PO BID Fluconazole (Diflucan), 200 MG PO DAILY Fluticasone Prop/Salmeterol (Advair Diskus 500/50 60 Dose), 1 PUFF INH BID Gabapentin (Gabapentin), 300 MG PO TID Hydroxyzine HCl (Hydroxyzine Pamoate), 50 MG PO HS Hydroxyzine HCl (Hydroxyzine HCl), 25 MG PO QAM Hyoscyamine Sulfate (Levsin), 0.125 MG PO TID Levothyroxine Sodium (Levothyroxine Sodium), 75 MCG PO QAM Linaclotide (Linzess), 290 MCG PO QAM [place] Carbonate ([place] Carbonate), 600 MG PO QPM [place] Carbonate Er (Lithobid Ext Rel), 450 MG PO QAM Metronidazole (Metronidazole), 500 MG PO TID Montelukast Sod (Montelukast Sodium), 10 MG PO HS Multiple Vitamin (Multivitamin), 1 TAB PO DAILY Nystatin (Topical) (Nystop), 1 APPLN TOP UD Pantoprazole (Pantoprazole Sodium), 40 MG PO QAM Polyethylene (Miralax), 17 GM PO DAILY Potassium Chloride (Potassium Chloride ER), 20 MEQ PO BID Probiotic Product (Probiotic), 1 CAP PO TID Risperidone (Risperidone), 1 MG PO QAM Risperidone (Risperdal), 2.5 MG PO HS Rivaroxaban (Xarelto), 20 MG PO DAILY Sennosides (Senna Lax), 17.2 MG PO DAILY Sucralfate (Carafate), 10 ML PO QID Topiramate (Qudexy Xr), 100 MG PO BID Venlafaxine Hcl (Effexor), 37.5 MG PO DAILY Wound Dressings (Hydrofera Blue Foam Dress), 1 EA EXT UD Scheduled PRN Albuterol Sulfate (Proair Respiclick), 2 PUFFS INH Q4-6HRS PRN for SOB/Wheezing Dihydroergotamine Mesylate (Migranal), 1 SPRAY EDIE UD PRN for Migraine Docusate Sodium (Dulcolax Stool Softener), 100 MG PO BID PRN for Constipation Indomethacin (Indomethacin), 25 MG PO 2XWK PRN for Headache Meclizine Hcl (Meclizine Hcl), 25 MG PO TID PRN for Dizziness or Vertigo Ondansetron (Ondansetron Hcl), 4 MG IV Q6H PRN for Nausea Ondasetron Odt (Zofran Odt), 4 MG SL Q8 PRN for Nausea Oxycodone HCl (Oxycodone HCl), 5-10 MG PO Q8 PRN for Pain Zolmitriptan (Zomig), 5 MG PO UD PRN for PRN Allergies Coded Allergies: Adhesives (Verified Allergy, Intermediate, TAPE- HIVES, 04/24/17) Ceftriaxone (Verified Allergy, Intermediate, rash, 04/24/17) Chlorhexidine (Verified Allergy, Intermediate, RASH, 04/24/17) Ciprofloxacin (Verified Allergy, Intermediate, hives, 04/24/17) Imipenem (Verified Allergy, Intermediate, PT REPORTS ITCHING, 04/24/17) Latex (Verified Allergy, Intermediate, hives, 04/24/17) Levofloxacin (Verified Allergy, Intermediate, rash, 04/24/17) Linezolid (Verified Allergy, Intermediate, rash, 04/24/17) Piperacillin (Verified Allergy, Intermediate, SEVERE RASH, HIVES, 04/24/17 ) Tazobactam (Verified Allergy, Intermediate, SEVERE RASH, HIVES, 04/24/17) Vancomycin (Verified Allergy, Intermediate, rash, 04/24/17) Tobramycin (Verified Allergy, Mild, MILD RASH ON ARM, RED FACE, 04/24/17) IMPROVED AFTER BENADRYL, TAKING REST OF DOSE Amikacin (Verified Allergy, Unknown, PER DR ROBINS,RXN WAS TO ZOSYN NOT AMKrash;hives, 04/24/17) Sulfamethoxazole w/Trimethoprim (Verified Allergy, Unknown, Hives, ) Can be pretreated with 10mg Zytrec 45 min prior to admin Physical Exam Vital Signs Date Time Temp Pulse Resp B/P (MAP) Pulse Ox O2 Delivery O2 Flow Rate FiO2 05/25/17 22:45 91 18 103/80 94 Room Air 05/25/17 21:04 36.7 84 18 107/66 98 Room Air 05/25/17 18:48 98 05/25/17 17:53 36.7 104 20 114/77 98 Room Air Physical Exam GENERAL: Patient is a healthy-appearing well-nourished 32 year old female HEAD: Normocephalic atraumatic EYES: Ocular movements intact pupils equal and react to light OROPHARYNX mucous membranes are moist no exudates present no erythema or edema present NECK: Supple no nuchal rigidity CHEST: Good equal expansion LUNGS: Clear and equal to auscultation CARDIAC: Normal S1 and S2 ABDOMEN: Soft nontender no guarding BACK: No CVA tenderness EXTREMITIES: No pain upon palpation normal muscle strength in all groups no clubbing cyanosis or edema. Bilateral BKAs. PICC Line in place in right upper extremity. Wound vac in place in right lower extremity. Cellulitis surrounding wound vac. NEURO: Patient is following commands and answering questions appropriately. Alert and oriented x3 Cranial Nerves 2-12 grossly intact Medical Decision & Procedures ER Provider Diagnostic Interpretation: Radiology results as stated below per my review and radiologist interpretation:' RIGHT LOWER EXTREMITY VENOUS DOPPLER HISTORY: Right leg pain. COMPARISON STUDY: Venous Doppler 04/26/2017. FINDINGS: The patient is status post below the knee and dilatation. The common femoral vein and proximal to mid superficial femoral vein are patent. The distal superficial femoral vein and popliteal veins are not well visualized but also likely patent. IMPRESSION: No DVT within the right lower extremity. Electronically signed by: Edward Dixon M.D. 05/25/2017 8:32 PM Dictated Date/Time: 05/25/2017 8:31 PM Laboratory Results 05/25/17 18:28 Red Blood Count 4.08, Mean Corpuscular Volume 98.0, Mean Corpuscular Hemoglobin 30.6, Mean Corpuscular Hemoglobin Concent 31.3, Mean Platelet Volume 10.1, Neutrophils (%) (Auto) 59.9, Lymphocytes (%) (Auto) 26.5, Monocytes (%) (Auto) 7.6, Eosinophils (%) (Auto) 5.2, Basophils (%) (Auto) 0.6, Neutrophils # (Auto) 5.05, Lymphocytes # (Auto) 2.23, Monocytes # (Auto) 0.64, Eosinophils # (Auto) 0.44, Basophils # (Auto) 0.05 05/25/17 18:28 Test 05/25/17 18:28 05/25/17 20:00 White Blood Count 8.43 K/uL (4.8-10.8) Red Blood Count 4.08 M/uL (4.2-5.4) Hemoglobin 12.5 g/dL (12.0-16.0) Hematocrit 40.0 % (37-47) Mean Corpuscular Volume 98.0 fL (80-100) Mean Corpuscular Hemoglobin 30.6 pg (25-34) Mean Corpuscular Hemoglobin Concent 31.3 g/dl (32-36) Platelet Count 337 K/uL (130-400) Mean Platelet Volume 10.1 fL (7.4-10.4) Neutrophils (%) (Auto) 59.9 % Lymphocytes (%) (Auto) 26.5 % Monocytes (%) (Auto) 7.6 % Eosinophils (%) (Auto) 5.2 % Basophils (%) (Auto) 0.6 % Neutrophils # (Auto) 5.05 K/uL (1.4-6.5) Lymphocytes # (Auto) 2.23 K/uL (1.2-3.4) Monocytes # (Auto) 0.64 K/uL (0.11-0.59) Eosinophils # (Auto) 0.44 K/uL (0-0.5) Basophils # (Auto) 0.05 K/uL (0-0.2) RDW Standard Deviation 60.7 fL (36.4-46.3) RDW Coefficient of Variation 16.9 % (11.5-14.5) Immature Granulocyte % (Auto) 0.2 % Immature Granulocyte # (Auto) 0.02 K/uL (0.00-0.02) Erythrocyte Sedimentation Rate 43 mm/hr (0-21) Prothrombin Time 14.0 SECONDS (9.0-12.0) Prothromb Time International Ratio 1.3 (0.9-1.1) Anion Gap 6.0 mmol/L (3-11) Est Creatinine Clear Calc Drug Dose 115.5 ml/min Estimated GFR () 141.8 Estimated GFR (Non- 122.3 BUN/Creatinine Ratio 12.9 (10-20) Calcium Level 8.4 mg/dl (8.5-10.1) Total Bilirubin 0.1 mg/dl (0.2-1) Direct Bilirubin < 0.1 mg/dl (0-0.2) Aspartate Amino Transf (AST/SGOT) 14 U/L (15-37) Alanine Aminotransferase (ALT/SGPT) 19 U/L (12-78) Alkaline Phosphatase 103 U/L (45-117) C-Reactive Protein 2.16 mg/dl (0-0.29) Total Protein 6.9 gm/dl (6.4-8.2) Albumin 2.7 gm/dl (3.4-5.0) Lipase 125 U/L (73-393) Urine Color YELLOW Urine Appearance CLOUDY (CLEAR) Urine pH 6.5 (4.5-7.5) Urine Specific [place] 1.015 (1.000-1.030) Urine Protein NEG (NEG) Urine Glucose (UA) NEG (NEG) Urine Ketones NEG (NEG) Urine Occult Blood 2+ (NEG) Urine Nitrite NEG (NEG) Urine Bilirubin NEG (NEG) Urine Urobilinogen NEG (NEG) Urine Leukocyte Esterase LARGE (NEG) Urine WBC (Auto) >30 /hpf (0-5) Urine RBC (Auto) >30 /hpf (0-4) Urine Hyaline Casts (Auto) 1-5 /lpf (0-5) Urine Epithelial Cells (Auto) 10-20 /lpf (0-5) Urine Bacteria (Auto) NEG (NEG) Labs reviewed by ED physician. Medications Administered Medications (Trade) Dose Ordered Sig/Brenna Route Start Time Stop Time Status Last Admin Dose Admin Ketorolac Tromethamine (Toradol Inj) 30 mg NOW STAT IV 05/25/17 18:15 05/25/17 18:17 DC 05/25/17 18:39 30 MG Hydromorphone HCl (Dilaudid Inj) 1 mg NOW STAT IV 05/25/17 18:15 05/25/17 18:17 DC 05/25/17 18:40 1 MG Ondansetron HCl (Zofran Inj) 4 mg NOW STAT IV 05/25/17 18:15 05/25/17 18:18 DC 05/25/17 18:38 4 MG Potassium Chloride (Joi [place]iel Elix) 40 meq NOW STAT PO 05/25/17 19:17 05/25/17 19:18 DC 05/25/17 19:48 40 MEQ Potassium Chloride (Joi C[place] Elix) 40 meq NOW STAT PO 05/25/17 20:16 05/25/17 20:17 DC 05/25/17 20:39 40 MEQ Hydromorphone HCl (Dilaudid Inj) 1 mg NOW STAT IV 05/25/17 21:25 05/25/17 21:26 DC 05/25/17 21:36 1 MG Ondansetron HCl (Zofran Inj) 4 mg STK-MED ONCE .ROUTE 05/25/17 21:50 05/25/17 21:51 DC 05/25/17 21:54 4 MG Fentanyl (Duragesic Patch) 50 mcg NOW STAT TD 05/25/17 22:03 05/25/17 22:05 DC 05/25/17 22:34 50 MCG Heparin Sodium (Porcine) (Heparin 10 Unit/ ml 5 ml Flush) 5 ml STK-MED ONCE .ROUTE 05/25/17 22:38 05/25/17 22:39 DC 05/25/17 22:41 5 ML ED Course 1800: Past medical records reviewed. The patient was evaluated in room B12B. A complete history and physical examination was performed. 1814: Ordered Zofran Injection 4 mg IV, Dilaudid Injection 1 mg IV, Toradol Injection 30 mg IV. 1916: Ordered Potassium Chloride 40 meq PO. 2015: Ordered Potassium Chloride 40 meq PO. 2124: Ordered Dilaudid Injection 1 mg IV. 2129: I discussed the patients case with Dr. Guevara, [facility] Hospitalist. She understands the patients condition and agrees to accept the patient. The patient will be further evaluated. 2149: Ordered Zofran Injection 4 mg IV. 2158: I discussed the patient's case with Dr. Brewer [facility] Hospitalist. He refuses to further evaluate the patient. 2202: Ordered Fentanyl 50 mcg TD. 2212: Upon reexamination the patient is resting comfortably. I discussed results and treatment plan with the patient. She verbalizes agreement and understanding. The patient is ready for discharge. Medical Decision Differential diagnosis: Etiologies such as cellulitis, abscess, MRSA infection, DVT, necrotizing fasciitis, dermatitis, drug eruption, as well as others were entertained. This is a 32-year-old female who presents emergency department complaining of right leg pain. The patient has a wound VAC in place and the wound to me appears to be healing well. The patient is early on daptomycin as well as aztreonam and Flagyl. She was sent for an ultrasound leg which did not show any evidence of DVT. The patient was given multiple rounds of Dilaudid in the emergency department as well as Toradol. Repeat examination revealed improvement patient's symptoms. I did discuss the case with the hospitalist service who did not wish to admit the patient I therefore stressed to both patient and mother that they need follow-up with wound care as well as pain management. I will trial the patient on a fentanyl patch for her pain until she can follow-up with pain management. Patient and mother were in agreement with the treatment plan. Medication Reconcilliation Current Medication List: was personally reviewed by me Blood Pressure Screening Patient's blood pressure: Normal blood pressure Consults Time Called: 2129 Consulting Physician: Dr. Guevara [facility] Hospitalist Returned Call: 2129 I discussed the patients case with Dr. Guevara [facility] Hospitalist. She understands the patients condition and agrees to accept the patient. The patient will be further evaluated. Additional Consults: Time Called: 2158 Consulted Physician: Dr. Brewer [facility] Hospitalist Returned Call: 2158 Additional Comments: I discussed the patient's case with Dr. Brewer [facility] Hospitalist. He refuses to further evaluate the patient. Impression Primary Impression: Intractable pain Scribe Attestation The scribe's documentation has been prepared under my direction and personally reviewed by me in its entirety. I confirm that the note above accurately reflects all work, treatment, procedures, and medical decision making performed by me. Departure Information Dispostion Home / Self-Care Prescriptions Fentanyl (DURAGESIC) 50 Mcg Tdsy 50 MCG TD CQ72HR, #2 PATCH Prov: Himanshu Chery MD 05/25/17 Referrals Gela Boone M.D. (PCP) Forms HOME CARE DOCUMENTATION FORM, IMPORTANT VISIT INFORMATION Patient Instructions My [facility], fentanyl skin patch Additional Instructions NEED follow up with pain management Need follow up with wound care Take 1000 mg Tylenol every 6 hours Take oxy as needed for breakthrough pain You received narcotic or benzodiazepene medication while in the emergency room today. This is an addictive medication that may cause drowziness as well as constipation. Do not drive, operate heavy machinery, or drink alcohol under the influence of this medication. You have been examined and treated today on an emergency basis only. This is not a substitute for, or an effort to provide, complete comprehensive medical care. It is impossible to recognize and treat all injuries or illnesses in a single emergency department visit. It is therefore important that you follow up closely with Dr Boone. Call as soon as possible for an appointment. Thank you for your time and consideration. I look forward to speaking with you again soon. Please don't hesitate to call us if you have any question
[2017-05-25] MEDS ORDERED: OXYC-609 PO (18:25)
[2017-05-25] MEDS ORDERED: EFF/375 PO (18:25)
[2017-05-25] MEDS ORDERED: CRFL PO (18:25)
[2017-05-25] MEDS ORDERED: LEVO75TA5 PO (18:25)
[2017-05-25] MEDS ORDERED: FAMO40TA6 PO (18:25)
[2017-05-25] MEDS ORDERED: MTR500 PO (18:25)
[2017-05-25] MEDS ORDERED: POTA-65 PO (18:25)
[2017-05-25] MEDS ORDERED: FLUC200T4 PO (18:25)
[2017-05-25] MEDS ORDERED: SENN1TAB80 PO (18:30)
[2017-05-25] MEDS ORDERED: PANT40TA2 PO (18:30)
[2017-05-25] MEDS ORDERED: XRL20 PO (18:35)
[2017-05-25] MEDS ORDERED: VST25HP PO (18:40)
[2017-05-25 18:54] LABS: BASO % 0.6 %; BASO ABS # 0.05 K/uL (0-0.2); COMPLETE YES; EOS % 5.2 %; IG% 0.2 %; LYMPH % 26.5 %; LYMPH ABS # 2.23 K/uL (1.2-3.4); MEAN CORPUSCULAR HEMOGLOBIN 30.6 pg (25-34); MEAN CORPUSCULAR HGB CONC 31.3 g/dl (32-36); MEAN PLATELET VOLUME 10.1 fL (7.4-10.4); MONO % 7.6 %; NEUT % 59.9 %; PLATELET COUNT 337 K/uL (130-400); RED BLOOD COUNT 4.08 M/uL (4.2-5.4); WHITE BLOOD COUNT 8.43 K/uL (4.8-10.8)
[2017-05-25 19:04] LABS: INR 1.3 (0.9-1.1)
[2017-05-25 19:16] LABS: ALT/SGPT 19 U/L (12-78); BLOOD UREA NITROGEN 8 mg/dl (7-18); BUN/CREATININE RATIO 12.9 (10-20); C-REACTIVE PROTEIN 2.16 mg/dl (0-0.29); CALCIUM 8.4 mg/dl (8.5-10.1); CARBON DIOXIDE 23 mmol/L (21-32); CHLORIDE 113 mmol/L (98-107); GLUCOSE 118 mg/dl (70-99); POTASSIUM 3.1 mmol/L (3.5-5.1); SODIUM 142 mmol/L (136-145)
[2017-05-25] MEDS ORDERED: POTASSIUM CHLORIDE 20 MEQ/15 ML UDC PO STA ×2 (19:17→20:16)
[2017-05-25 19:19] LABS: ALKALINE PHOSPHATASE 103 U/L (45-117); AST/SGOT 14 U/L (15-37)
[2017-05-25] MEDS ORDERED: [UNRECOGNIZED DRUG - CODE] PO (19:25)
[2017-05-25 20:11] LABS: URINE APPEARANCE CLOUDY (CLEAR); URINE BILIRUBIN NEG (NEG); URINE COLOR YELLOW; URINE NITRITE NEG (NEG); URINE PH 6.5 (4.5-7.5); URINE SPECIFIC GRAVITY 1.015 (1.000-1.030); UROBILINOGEN NEG (NEG)
[2017-05-25 20:13] LABS: MANUAL MICROSCOPIC REQUIRED? NO; REVIEW REQ? NO
[2017-05-25] MEDS ORDERED: MISCCAP80 PO (20:28)
[2017-05-25] MEDS ORDERED: NYST100010 TOP (20:28)
--- NOTE | 2017-05-25 20:34 | DIAGNOSTIC IMAGING REPORT ---
RIGHT LOWER EXTREMITY VENOUS DOPPLER HISTORY: Right leg pain. COMPARISON STUDY: Venous Doppler 04/26/2017. FINDINGS: The patient is status post below the knee and dilatation. The common femoral vein and proximal to mid superficial femoral vein are patent. The distal superficial femoral vein and popliteal veins are not well visualized but also likely patent. IMPRESSION: No DVT within the right lower extremity. Electronically signed by: Edward Dixon M.D. 05/25/2017 8:32 PM Dictated Date/Time: 05/25/2017 8:31 PM
[2017-05-25 21:04] VITALS: TEMP 36.7
[2017-05-25] MEDS ORDERED: ONDANSETRON INJ 2 MG/ML 2 ML VIAL ONE (21:50)
[2017-05-25] MEDS ORDERED: FENTANYL 50 MCG/HR TDSY TD STA (22:03)
[2017-05-25] MEDS ORDERED: FNTTP50 TD (22:07)
[2017-05-25] MEDS ORDERED: LITH600C PO (22:29)
[2017-05-25] MEDS ORDERED: ALBU18002 INH (22:29)
[2017-05-25] MEDS ORDERED: BENZ-88 PO (22:29)
[2017-05-25 22:45] VITALS: BP 103/80; PULSE 91; O2SAT 94
== END 2017-05-25 23:01 | disposition home or self-care (01) ==
LOC: C.EDB 17:51
DX: S81.801D Unspecified open wound, right lower leg, subsequent encounter (principal); R10.9 Unspecified abdominal pain; W01.0XXD Fall on same level from slipping, tripping and stumbling without subsequent striking against object, subsequent encounter; F41.9 Anxiety disorder, unspecified; J45.909 Unspecified asthma, uncomplicated; F31.9 Bipolar disorder, unspecified; K31.84 Gastroparesis; K21.9 Gastro-esophageal reflux disease without esophagitis; Q05.9 Spina bifida, unspecified; G43.909 Migraine, unspecified, not intractable, without status migrainosus; Z98.2 Presence of cerebrospinal fluid drainage device; Z79.51 Long term (current) use of inhaled steroids; Z79.01 Long term (current) use of anticoagulants; Z86.711 Personal history of pulmonary embolism; Z89.511 Acquired absence of right leg below knee; Z89.512 Acquired absence of left leg below knee; Z80.9 Family history of malignant neoplasm, unspecified; Z83.3 Family history of diabetes mellitus

== ENCOUNTER → 2017-05-25 | Outpatient (CLI) | payer BC, OTHER ==
[~2017-05-25] MED LIST changes: -RISP2TAB22 PO
[2017-05-25 17:00] LABS: URINE APPEARANCE CLEAR (CLEAR); URINE BILIRUBIN NEG (NEG); URINE COLOR YELLOW; URINE NITRITE NEG (NEG); URINE SPECIFIC GRAVITY 1.011 (1.000-1.030); UROBILINOGEN NEG (NEG)
[2017-05-25 17:03] LABS: MANUAL MICROSCOPIC REQUIRED? YES; REVIEW REQ? NO
[2017-05-25 17:13] LABS: URINE BACTERIA NEG (NEG); URINE RBC 0-4 /hpf (0-4)
== END | disposition home or self-care (01) ==
LOC: C.LABBC 13:27
PROVIDERS: ATTEND Internal Medicine Infectious Disease
DX: R19.7 Diarrhea, unspecified (principal); N39.0 Urinary tract infection, site not specified

== ENCOUNTER 2017-05-29 14:38 | Emergency (ER) | payer BC, OTHER ==
[~2017-05-29] VITALS: Ht 119.4 cm; Wt 108.0 kg
[~2017-05-29 14:38] MED LIST changes: +ALBU18002 INH; +BENZ-88 PO; +CRFL PO; +EFF/375 PO; +FAMO40TA6 PO; +FNTTP50 TD; +LEVO75TA5 PO; +LITH600C PO; +MISCCAP80 PO; +MTR500 PO; +MULTTAB58 PO; +NYST100010 TOP; +OXYC-609 PO; +PANT40TA2 PO; +POTA-65 PO; +VST25HP PO; +XRL20 PO; +[UNRECOGNIZED DRUG - CODE] PO
[2017-05-29 14:42] VITALS: Ht 119.4 cm; Wt 108.0 kg
--- NOTE | 2017-05-29 15:01 | EMERGENCY ROOM VISIT NOTE ---
History Report prepared by James: Jim Alejandre Under the Supervision of: Dr. Imelda Ortega M.D. First contact with patient: 14:52 Chief Complaint: LEG PAIN,LEG INJURY Stated Complaint: PAIN RIGHT THIGH History of Present Illness The patient is a 32 year old female who presents to the Emergency Room with complaints of a worsening, severe, wound to the back of the right upper leg beginning a few weeks ago after a fall. The patient's mother states the patient has been bed ridden for the past two weeks because of her wound. She reports the patient has a home health nurse that has been taking care of her wound. The mother notes the patient has been using Wound V.A.C. until this morning when her doctor told her to stop using it. She states the Wound V.A.C. is not sticking and loses pressure when the patient moves. The mother reports the patient is being evaluated by a wound clinic, but they are away for the next two weeks. She notes the nurse at home has tried wet to dry treatment, antifungal powder, and draping over the wound. The mother states nothing is sticking to the wound or helping it. Source of History: patient, parent (mother) Onset: few weeks ago Position: leg (back of right upper leg) Symptom Intensity: severe Quality: other (wound) Timing: worsening Review of Systems See HPI for pertinent positives & negatives. A total of 10 systems reviewed and were otherwise negative. 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 (16) Osteomyelitis (17) Pulmonary embolism (18) Shunt placement with revision x8 (19) Spina bifida (20) UTI (urinary tract infection) Surgical Problems: (1) S/P BKA (below knee amputation) bilateral Family History Cancer Diabetes mellitus Lung disease Social History Smoking Status: Never Smoker Alcohol Use: none Drug Use: none Marital Status: single Housing Status: lives with family Occupation Status: disabled Current/Historical Medications Scheduled Aztreonam (Aztreonam), 2 GM IV Q8 Benztropine Mesylate (Benztropine Mesylate), 1 MG PO BID Cholecalciferol (Vitamin D), 2,000 INTER.UNIT PO BID Clonazepam (Klonopin), 0.5 MG PO HS Cyanocobalamin (Vitamin B-12), 500 MCG PO DAILY Daptomycin (Daptomycin), 700 MG IV Q24H Ergotamine Tartrate (Ergomar), 2 MG PO 2XWK Famotidine (Pepcid), 40 MG PO DAILY Fentanyl (Duragesic), 50 MCG TD [id number] Ferrous Sulfate (Ferrous Sulfate), 325 MG PO BID Fluconazole (Diflucan), 200 MG PO DAILY Fluticasone Prop/Salmeterol (Advair Diskus 500/50 60 Dose), 1 PUFF INH BID Gabapentin (Gabapentin), 300 MG PO TID Hydroxyzine HCl (Hydroxyzine Pamoate), 50 MG PO HS Hydroxyzine HCl (Hydroxyzine HCl), 25 MG PO QAM Hyoscyamine Sulfate (Levsin), 0.125 MG PO TID Levothyroxine Sodium (Levothyroxine Sodium), 75 MCG PO QAM Linaclotide (Linzess), 290 MCG PO QAM Deville Carbonate (Deville Carbonate), 600 MG PO QPM Deville Carbonate Er (Lithobid Ext Rel), 450 MG PO QAM Metronidazole (Metronidazole), 500 MG PO TID Montelukast Sod (Montelukast Sodium), 10 MG PO HS Multiple Vitamin (Multivitamin), 1 TAB PO DAILY Nystatin (Topical) (Nystop), 1 APPLN TOP UD Pantoprazole (Pantoprazole Sodium), 40 MG PO QAM Polyethylene (Miralax), 17 GM PO DAILY Potassium Chloride (Potassium Chloride ER), 20 MEQ PO BID Probiotic Product (Probiotic), 1 CAP PO TID Risperidone (Risperidone), 1 MG PO QAM Risperidone (Risperdal), 2.5 MG PO HS Rivaroxaban (Xarelto), 20 MG PO DAILY Sennosides (Senna Lax), 17.2 MG PO DAILY Sucralfate (Carafate), 10 ML PO QID Topiramate (Qudexy Xr), 100 MG PO BID Venlafaxine Hcl (Effexor), 37.5 MG PO DAILY Wound Dressings (Hydrofera Blue Foam Dress), 1 EA EXT UD Scheduled PRN Albuterol Sulfate (Proair Respiclick), 2 PUFFS INH Q4-6HRS PRN for SOB/Wheezing Dihydroergotamine Mesylate (Migranal), 1 SPRAY EDIE UD PRN for Migraine Docusate Sodium (Dulcolax Stool Softener), 100 MG PO BID PRN for Constipation Indomethacin (Indomethacin), 25 MG PO 2XWK PRN for Headache Meclizine Hcl (Meclizine Hcl), 25 MG PO TID PRN for Dizziness or Vertigo Ondansetron (Ondansetron Hcl), 4 MG IV Q6H PRN for Nausea Ondasetron Odt (Zofran Odt), 4 MG SL Q8 PRN for Nausea Oxycodone HCl (Oxycodone HCl), 5-10 MG PO Q8 PRN for Pain Zolmitriptan (Zomig), 5 MG PO UD PRN for PRN Allergies Coded Allergies: Adhesives (Verified Allergy, Intermediate, TAPE- HIVES, 04/24/17) Ceftriaxone (Verified Allergy, Intermediate, rash, 04/24/17) Chlorhexidine (Verified Allergy, Intermediate, RASH, 04/24/17) Ciprofloxacin (Verified Allergy, Intermediate, hives, 04/24/17) Imipenem (Verified Allergy, Intermediate, PT REPORTS ITCHING, 04/24/17) Latex (Verified Allergy, Intermediate, hives, 04/24/17) Levofloxacin (Verified Allergy, Intermediate, rash, 04/24/17) Linezolid (Verified Allergy, Intermediate, rash, 04/24/17) Piperacillin (Verified Allergy, Intermediate, SEVERE RASH, HIVES, 04/24/17 ) Tazobactam (Verified Allergy, Intermediate, SEVERE RASH, HIVES, 04/24/17) Vancomycin (Verified Allergy, Intermediate, rash, 04/24/17) Tobramycin (Verified Allergy, Mild, MILD RASH ON ARM, RED FACE, 04/24/17) IMPROVED AFTER BENADRYL, TAKING REST OF DOSE Amikacin (Verified Allergy, Unknown, PER DR ROBINS,RXN WAS TO ZOSYN NOT AMKrash;hives, 04/24/17) Sulfamethoxazole w/Trimethoprim (Verified Allergy, Unknown, Hives, ) Can be pretreated with 10mg Zytrec 45 min prior to admin Physical Exam Vital Signs Date Time Temp Pulse Resp B/P (MAP) Pulse Ox O2 Delivery O2 Flow Rate FiO2 05/29/17 17:48 37.0 88 16 100/51 97 05/29/17 17:47 88 16 100/51 97 Room Air 05/29/17 15:22 93 16 105/56 97 Room Air 05/29/17 14:42 37.0 105 18 131/83 98 Room Air Physical Exam Vital signs reviewed. General: Chronically ill-appearing, morbidly obese, 32 year old female in no significant distress. HEENT: No scleral icterus, PERRLA, neck supple. Atraumatic. Cardiovascular: Regular rate and rhythm, no extra sounds. Pulmonary: Clear to auscultation bilaterally, normal work of breathing. Abdomen: Soft, nontender, nondistended, positive bowel sounds. Musculoskeletal: Atrophy of the bilateral lower extremities. 4cm wound to the posterior right thigh that is circular with a large area of surrounding dermatitis. No purulence or foul odor. No lymphatic streaking or drainage. Neurologic: Patient awake alert and oriented x 3 Skin: Warm, dry, skin changes as described above. Medical Decision & Procedures Medications Administered Medications (Trade) Dose Ordered Sig/Brenna Route Start Time Stop Time Status Last Admin Dose Admin Nystatin (Mycostatin Crm) 1 appln NOW STAT EXT 05/29/17 15:35 05/29/17 15:37 DC 05/29/17 16:08 1 APPLN Oxycodone HCl (Roxicodone Immediate Rel Tab) 10 mg NOW STAT PO 05/29/17 15:35 05/29/17 15:37 DC 05/29/17 16:09 10 MG ED Course 1524: Past medical records reviewed. The patient was evaluated in room B09. A complete history and physical examination was performed. 1535: Ordered Oxycodone HCl 10mg PO, Nystatin 1appln EXT 1715: Upon reevaluation, the patient appeared to have improvement of her symptoms. I discussed findings with her and her mother. They verbalized agreement of the treatment plan. The patient was discharged home. Medical Decision Differential diagnosis: Etiologies such as cellulitis, abscess, MRSA infection, DVT, necrotizing fasciitis, dermatitis, contact dermatitis, chronic decubitus ulcer, drug eruption, as well as others were entertained. This patient was evaluated and appeared to be in some discomfort. She was given 2 OxyIR tablets and the wound was packed with wet-to-dry gauze and secured with nonadhesive dressing. The surrounding skin to the decubitus ulcer appears to have a very large area of dermatitis. This is probably a combination of yeast and contact dermatitis. Nystatin cream was applied to the surrounding area. Mother was instructed to use oxycodone sparingly as needed for pain and to continue wet-to-dry dressings and nystatin cream until they're able to see the wound clinic this week. The patient does not appear to be septic nor does it appear to be an acute cellulitis. They're comfortable with this plan of treatment and will return to the ER for worsening of symptoms or any medical concerns. Impression Primary Impression: Decubitus ulcer of right leg, stage 4 Additional Impression: Yeast dermatitis Scribe Attestation The scribe's documentation has been prepared under my direction and personally reviewed by me in its entirety. I confirm that the note above accurately reflects all work, treatment, procedures, and medical decision making performed by me. Departure Information Dispostion Home / Self-Care Referrals Gela Boone M.D. (PCP) Forms HOME CARE DOCUMENTATION FORM, IMPORTANT VISIT INFORMATION Patient Instructions My [facility] Additional Instructions Diagnosis: Pressure ulceration, dermatitis Continue wet-to-dry packing and nystatin cream to the skin surrounding the wound. Apply a dry dressing and use a nonadhesive Curlex or Shaq wrap to attach the dressing. Follow-up with the wound care clinic as soon as possible. Return to the emergency department for worsening of symptoms or any medical concerns. Problem Qualifiers
[2017-05-29] MEDS ORDERED: OXYCODONE HCL IR 5 MG TAB (IMMEDIATE RELEASE) PO STA (15:35)
[2017-05-29] MEDS ORDERED: NYSTATIN CR 15 GM TUBE EXT STA (15:35)
[2017-05-29 17:48] VITALS: BP 100/51; PULSE 88; TEMP 37; O2SAT 97
== END 2017-05-29 17:49 | disposition home or self-care (01) ==
LOC: C.EDB 14:39
DX: L89.894 Pressure ulcer of other site, stage 4 (principal); B37.9 Candidiasis, unspecified; L30.9 Dermatitis, unspecified; K31.84 Gastroparesis; K21.9 Gastro-esophageal reflux disease without esophagitis; F31.9 Bipolar disorder, unspecified; F41.9 Anxiety disorder, unspecified; J45.909 Unspecified asthma, uncomplicated; M86.9 Osteomyelitis, unspecified; Z86.711 Personal history of pulmonary embolism; Z87.440 Personal history of urinary (tract) infections; Z86.14 Personal history of Methicillin resistant Staphylococcus aureus infection; Z86.19 Personal history of other infectious and parasitic diseases; Z89.512 Acquired absence of left leg below knee; Z89.511 Acquired absence of right leg below knee; Z79.899 Other long term (current) drug therapy; Z88.2 Allergy status to sulfonamides; Z88.8 Allergy status to other drugs, medicaments and biological substances; Z80.9 Family history of malignant neoplasm, unspecified; Z83.3 Family history of diabetes mellitus

== ENCOUNTER → 2017-05-31 | Outpatient (CLI) | payer BC, OTHER ==
[~2017-05-31] MED LIST changes: +AMOX500C3 PO; +AMOX875T PO; +CEFE1INJ3 IV; +CEFE2INJ2 IV; +CEFT600I IV; +CETI10TA84 PO; -CLON0.5T3 PO; +DIHY1INJ2 INJ; +DIPH25CA5 PO; +DOCU-94 PO; +DOXY-300 PO; +EFFSR150 PO; +EFFSR75 PO; +FLUC100T4 PO; +GABA-1219 PO; -GABA1CAP4 PO; +KLN/5 PO; -LEVO75TA PO; +LEVO88TA3 PO; +MCRK/20 PO; +MENTOIN TOP; +MENTPOW4 TOP; +METO-157 PO; -METR-162 PO; +MGRIN; +MXT150 PO; +NALT1TAB14 PO; +POLY335019 PO; +POTA-639 PO; +PRENTAB26 PO; +RISP2TAB22 PO; +RISP3TAB12 PO; -RIVA1TAB4 PO; +RSP2 PO; -RXC5 PO; +SENN-61 PO; +TOBRAMYCIN; +TRAZ50TA35 PO; +VENL150C2 PO; -VENL37.593 PO; -WOUN1PAD EXT; +XPNINS NEB; +ZYR10 PO; +[UNRECOGNIZED DRUG - CODE]; +[UNRECOGNIZED DRUG - CODE] EXT; +[UNRECOGNIZED DRUG - CODE] IV; +[UNRECOGNIZED DRUG - CODE] IV; +[UNRECOGNIZED DRUG - CODE] PO; +[UNRECOGNIZED DRUG - CODE] TOP
[2017-05-31 14:08] LABS: BASO % 0.5 %; BASO ABS # 0.04 K/uL (0-0.2); EOS ABS # 0.61 K/uL (0-0.5); HEMOGLOBIN 11.6 g/dL (12.0-16.0); IG# 0.02 K/uL (0.00-0.02); LYMPH % 22.5 %; LYMPH ABS # 1.72 K/uL (1.2-3.4); MEAN CELL VOLUME 98.2 fL (80-100); MEAN CORPUSCULAR HGB CONC 30.5 g/dl (32-36); MEAN PLATELET VOLUME 10.3 fL (7.4-10.4); MONO % 9.8 %; MONO ABS # 0.75 K/uL (0.11-0.59); NEUT % 58.9 %; NEUT ABS # 4.49 K/uL (1.4-6.5); PLATELET COUNT 279 K/uL (130-400); RED CELL DISTRIBUTION WIDTH CV 16.2 % (11.5-14.5); RED CELL DISTRIBUTION WIDTH SD 58.4 fL (36.4-46.3); WHITE BLOOD COUNT 7.63 K/uL (4.8-10.8)
[2017-05-31 14:18] LABS: ALBUMIN 2.2 gm/dl (3.4-5.0); ALT/SGPT 21 U/L (12-78); AST/SGOT 18 U/L (15-37); BLOOD UREA NITROGEN 8 mg/dl (7-18); CALCIUM 8.6 mg/dl (8.5-10.1); CARBON DIOXIDE 25 mmol/L (21-32); CREATININE 0.56 mg/dl (0.60-1.20); GLUCOSE 94 mg/dl (70-99); POTASSIUM 3.6 mmol/L (3.5-5.1); SODIUM 142 mmol/L (136-145)
[2017-05-31 14:20] LABS: ALKALINE PHOSPHATASE 139 U/L (45-117); TOTAL PROTEIN 6.2 gm/dl (6.4-8.2)
== END | disposition home or self-care (01) ==
LOC: C.LABSPEC 13:51
PROVIDERS: ATTEND Internal Medicine Infectious Disease
DX: M81.0 Age-related osteoporosis without current pathological fracture (principal)

== ENCOUNTER 2017-06-06 16:52 | Inpatient (IN) | payer BC, OTHER ==
[~2017-06-06] VITALS: Ht 119.4 cm; Wt 108.0 kg
[~2017-06-06 16:52] MED LIST changes: -AMOX500C3 PO; -AMOX875T PO; -CEFE1INJ3 IV; -CEFE2INJ2 IV; -CEFT600I IV; -CETI10TA84 PO; +CLON0.5T3 PO; -DIHY1INJ2 INJ; -DIPH25CA5 PO; -DOCU-94 PO; -DOXY-300 PO; -EFFSR150 PO; -EFFSR75 PO; -FLUC100T4 PO; -GABA-1219 PO; +GABA1CAP4 PO; -KLN/5 PO; -LEVO75TA PO; -LEVO88TA3 PO; -MCRK/20 PO; -MENTOIN TOP; -MENTPOW4 TOP; -METO-157 PO; -METR-162 PO; -MGRIN; -MXT150 PO; -NALT1TAB14 PO; -PANT40TA PO; -POLY335019 PO; -POTA-639 PO; -PRENTAB26 PO; -RISP2TAB22 PO; -RISP3TAB12 PO; -RIVA1TAB4 PO; -RSP2 PO; -RXC5 PO; -SENN-61 PO; -TOBRAMYCIN; -TRAZ50TA35 PO; -VENL150C2 PO; -VENL37.593 PO; +WOUN1PAD EXT; -XPNINS NEB; -ZYR10 PO; -[UNRECOGNIZED DRUG - CODE]; -[UNRECOGNIZED DRUG - CODE] EXT; -[UNRECOGNIZED DRUG - CODE] IV; -[UNRECOGNIZED DRUG - CODE] IV; -[UNRECOGNIZED DRUG - CODE] PO; -[UNRECOGNIZED DRUG - CODE] TOP
--- NOTE | 2017-06-06 18:00 | EMERGENCY ROOM VISIT NOTE ---
History Report prepared by James: Radha Huang Under the Supervision of: Dr. Eloy Haile D.O. First contact with patient: 17:41 Chief Complaint: MENTAL HEALTH EVALUATION Stated Complaint: SUICIDAL THOUGHTS History of Present Illness The patient is a 32 year old female who presents to the Emergency Room for a mental health evaluation. The patient states "my voices have been very active and been telling me not to eat". The patient has been on bed rest for 4 weeks. She states being on bedrest has made "go crazy" and feel depressed. The patient has a history of a eating disorders. Presently, the patient is having suicidal thoughts with a plan to cut herself. The patient does not currently have a woundvac. She is following up with wound care. Per mother, the patient's wound is looking better. She denies any fevers or vomiting, Source of History: patient Position: other (generalized) Quality: other (mental health evaluation) Modifying Factors (Relieving): other (none) Associated Symptoms: No fevers, No vomiting Review of Systems See HPI for pertinent positives & negatives. A total of 10 systems reviewed and were otherwise negative. 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 (14) Osteomyelitis (15) Pulmonary embolism (16) Shunt placement with revision x8 (17) Spina bifida (18) UTI (urinary tract infection) Surgical Problems: (1) S/P BKA (below knee amputation) bilateral Family History Cancer Diabetes mellitus Lung disease Social History Smoking Status: Never Smoker Alcohol Use: none Drug Use: none Marital Status: single Housing Status: lives with family Occupation Status: disabled Current/Historical Medications Scheduled Benztropine Mesylate (Benztropine Mesylate), 1 MG PO BID Cholecalciferol (Vitamin D), 2,000 INTER.UNIT PO BID Clonazepam (Klonopin), 0.5 MG PO HS Cyanocobalamin (Vitamin B-12), 500 MCG PO DAILY Docusate Sodium (Colace), 1 CAP PO BID Famotidine (Pepcid), 40 MG PO DAILY Ferrous Sulfate (Ferrous Sulfate), 325 MG PO BID Fluticasone Prop/Salmeterol (Advair Diskus 500/50 60 Dose), 1 PUFF INH BID Gabapentin (Gabapentin), 300 MG PO BID Hydroxyzine HCl (Hydroxyzine Pamoate), 50 MG PO HS Hydroxyzine HCl (Hydroxyzine HCl), 25 MG PO QAM Hyoscyamine Sulfate (Levsin), 0.125 MG PO TID Levothyroxine Sodium (Levothyroxine Sodium), 75 MCG PO QAM Linaclotide (Linzess), 290 MCG PO QAM Caribou Carbonate (Caribou Carbonate), 600 MG PO QPM Caribou Carbonate Er (Lithobid Ext Rel), 450 MG PO QAM Metronidazole (Metronidazole), 500 MG PO TID Montelukast Sod (Montelukast Sodium), 10 MG PO HS Multiple Vitamin (Multivitamin), 1 TAB PO DAILY Nystatin (Topical) (Nystop), 1 APPLN TOP UD Pantoprazole (Protonix), 40 MG PO DAILY Potassium Chloride (Potassium Chloride ER), 20 MEQ PO BID Probiotic Product (Probiotic), 1 CAP PO TID Risperidone (Risperidone), 1 MG PO QAM Risperidone (Risperdal), 2.5 MG PO HS Rivaroxaban (Xarelto), 20 MG PO DAILY Senna (Senokot), 1 TAB PO BID Sennosides (Senna Lax), 17.2 MG PO DAILY Sucralfate (Carafate), 10 ML PO QID Topiramate (Qudexy Xr), 1 TAB PO BID Venlafaxine Hcl (Effexor Extended Rel), 75 MG PO DAILY Wound Dressings (Hydrofera Blue Foam Dress), 1 EA EXT UD Scheduled PRN Albuterol Sulfate (Proair Respiclick), 2 PUFFS INH TID PRN for SOB/Wheezing Levalbuterol (Levalbuterol HCl), 3 ML NEB Q4 PRN for Shortness of Breath Meclizine Hcl (Meclizine Hcl), 25 MG PO TID PRN for Dizziness or Vertigo Menthol-Zinc Oxide (Calmoseptine), 1 DOSE TOP DAILY PRN for PRN Ondansetron (Ondansetron Hcl), 4 MG IV Q6H PRN for Nausea Ondasetron Odt (Zofran Odt), 4 MG SL Q8 PRN for Nausea Oxycodone HCl (Oxycodone HCl), 5-10 MG PO Q8 PRN for Pain Polyethylene Glycol 3350 (Miralax), 17 GM PO DAILY PRN for Constipation Allergies Coded Allergies: Adhesives (Verified Allergy, Intermediate, TAPE- HIVES, 06/06/17) Ceftriaxone (Verified Allergy, Intermediate, rash, 06/06/17) Chlorhexidine (Verified Allergy, Intermediate, RASH, 06/06/17) Ciprofloxacin (Verified Allergy, Intermediate, hives, 06/06/17) Imipenem (Verified Allergy, Intermediate, PT REPORTS ITCHING, 06/06/17) Latex (Verified Allergy, Intermediate, hives, 06/06/17) Levofloxacin (Verified Allergy, Intermediate, rash, 06/06/17) Linezolid (Verified Allergy, Intermediate, rash, 06/06/17) Piperacillin (Verified Allergy, Intermediate, SEVERE RASH, HIVES, 06/06/17) Tazobactam (Verified Allergy, Intermediate, SEVERE RASH, HIVES, 06/06/17) Vancomycin (Verified Allergy, Intermediate, rash, 06/06/17) Tobramycin (Verified Allergy, Mild, MILD RASH ON ARM, RED FACE, 06/06/17) IMPROVED AFTER BENADRYL, TAKING REST OF DOSE Amikacin (Verified Allergy, Unknown, PER DR ROBINS,RXN WAS TO ZOSYN NOT AMKrash;hives, 06/06/17) Sulfamethoxazole w/Trimethoprim (Verified Allergy, Unknown, Hives, 06/06/17) Can be pretreated with 10mg Zytrec 45 min prior to admin Physical Exam Vital Signs Date Time Temp Pulse Resp B/P (MAP) Pulse Ox O2 Delivery O2 Flow Rate FiO2 06/07/17 11:56 60 18 123/74 93 06/07/17 07:29 80 16 123/73 99 Room Air 06/06/17 21:44 98 18 122/77 97 Room Air 06/06/17 19:13 64 20 104/54 95 Room Air 06/06/17 17:13 36.6 82 20 132/82 100 Room Air Physical Exam GENERAL: Patient is awake, alert, and in no acute distress. Patient is resting comfortably and showing no signs of anxiety EYES: The conjunctivae are clear. The pupils are round and reactive. EARS, NOSE, MOUTH AND THROAT: The nose is without any evidence of any deformity. Mucous membranes are moist tongue is midline NECK: The neck is nontender and supple. RESPIRATORY: Normal respiratory effort is noted there is no evidence of wheezing rhonchi or rales CARDIOVASCULAR: Regular rate and rhythm noted there no murmurs rubs or gallops normal S1 normal S2 GASTROINTESTINAL: The abdomen is soft. Bowel sounds are present in all quadrants. Abdomen is nontender MUSCULOSKELETAL/EXTREMITIES: Bilateral lower extremity amputation note. SKIN: Skin pressure ulcer in posterior right thigh, granulation tissue noted, wound dressing in place. NEUROLOGIC: Patient is awake alert and oriented x3 PSYCH: Admits to suicidal ideation with plan to cut herself. The patient also notes auditory hallucination Medical Decision & Procedures Laboratory Results 06/06/17 19:21 Red Blood Count 3.78, Mean Corpuscular Volume 97.9, Mean Corpuscular Hemoglobin 30.4, Mean Corpuscular Hemoglobin Concent 31.1, Mean Platelet Volume 10.1, Neutrophils (%) (Auto) 59.4, Lymphocytes (%) (Auto) 25.6, Monocytes (%) (Auto) 7.1, Eosinophils (%) (Auto) 7.0, Basophils (%) (Auto) 0.4, Neutrophils # (Auto) 4.82, Lymphocytes # (Auto) 2.08, Monocytes # (Auto) 0.58, Eosinophils # (Auto) 0.57, Basophils # (Auto) 0.03 06/06/17 19:21 Test 06/06/17 17:51 06/06/17 19:21 Urine Color YELLOW Urine Appearance CLEAR (CLEAR) Urine pH 6.0 (4.5-7.5) Urine Specific Amigo 1.010 (1.000-1.030) Urine Protein NEG (NEG) Urine Glucose (UA) NEG (NEG) Urine Ketones NEG (NEG) Urine Occult Blood NEG (NEG) Urine Nitrite POS (NEG) Urine Bilirubin NEG (NEG) Urine Urobilinogen NEG (NEG) Urine Leukocyte Esterase SMALL (NEG) Urine WBC (Auto) 5-10 /hpf (0-5) Urine RBC (Auto) 0-4 /hpf (0-4) Urine Hyaline Casts (Auto) 1-5 /lpf (0-5) Urine Epithelial Cells (Auto) >30 /lpf (0-5) Urine Bacteria (Auto) NEG (NEG) Urine Test NEG (NEG) Urine Opiates Screen NEG (NEG) Urine Methadone, Qualitative NEG (NEG) Urine Barbiturates NEG (NEG) Urine Phencyclidine (PCP) Level NEG (NEG) Ur Amphetamine/Methamphetamine NEG (NEG) MDMA (Ecstasy) Screen NEG (NEG) Urine Benzodiazepines Screen NEG (NEG) Urine Cocaine Metabolite NEG (NEG) Urine Marijuana (THC) NEG (NEG) White Blood Count 8.12 K/uL (4.8-10.8) Red Blood Count 3.78 M/uL (4.2-5.4) Hemoglobin 11.5 g/dL (12.0-16.0) Hematocrit 37.0 % (37-47) Mean Corpuscular Volume 97.9 fL (80-100) Mean Corpuscular Hemoglobin 30.4 pg (25-34) Mean Corpuscular Hemoglobin Concent 31.1 g/dl (32-36) Platelet Count 270 K/uL (130-400) Mean Platelet Volume 10.1 fL (7.4-10.4) Neutrophils (%) (Auto) 59.4 % Lymphocytes (%) (Auto) 25.6 % Monocytes (%) (Auto) 7.1 % Eosinophils (%) (Auto) 7.0 % Basophils (%) (Auto) 0.4 % Neutrophils # (Auto) 4.82 K/uL (1.4-6.5) Lymphocytes # (Auto) 2.08 K/uL (1.2-3.4) Monocytes # (Auto) 0.58 K/uL (0.11-0.59) Eosinophils # (Auto) 0.57 K/uL (0-0.5) Basophils # (Auto) 0.03 K/uL (0-0.2) RDW Standard Deviation 58.4 fL (36.4-46.3) RDW Coefficient of Variation 16.3 % (11.5-14.5) Immature Granulocyte % (Auto) 0.5 % Immature Granulocyte # (Auto) 0.04 K/uL (0.00-0.02) Anion Gap 6.0 mmol/L (3-11) Est Creatinine Clear Calc Drug Dose 142.2 ml/min Estimated GFR () > 150.0 Estimated GFR (Non- 131.6 BUN/Creatinine Ratio 20.7 (10-20) Calcium Level 8.8 mg/dl (8.5-10.1) Total Bilirubin 0.2 mg/dl (0.2-1) Direct Bilirubin < 0.1 mg/dl (0-0.2) Aspartate Amino Transf (AST/SGOT) 14 U/L (15-37) Alanine Aminotransferase (ALT/SGPT) 16 U/L (12-78) Alkaline Phosphatase 123 U/L (45-117) Total Protein 6.4 gm/dl (6.4-8.2) Albumin 2.4 gm/dl (3.4-5.0) Thyroid Stimulating Hormone (TSH) 2.790 uIu/ml (0.300-4.500) Salicylates Level < 1.7 mg/dl (2.8-20) Acetaminophen Level 4 ug/ml (10-30) Laboratory results per my review. Medications Administered Medications (Trade) Dose Ordered Sig/Brenna Route Start Time Stop Time Status Last Admin Dose Admin Heparin Sodium (Porcine) (Heparin 10 Unit/ ml 5 ml Flush) 5 ml STK-MED ONCE .ROUTE 06/06/17 18:08 06/06/17 18:09 DC 06/06/17 18:14 5 ML Oxycodone HCl (Roxicodone Immediate Rel Tab) 5 mg NOW STAT PO 06/06/17 19:58 06/06/17 19:59 DC 06/06/17 20:04 5 MG Oxycodone HCl (Roxicodone Immediate Rel Tab) 5 mg NOW STAT PO 06/06/17 21:20 06/06/17 21:21 DC 06/06/17 21:44 5 MG Lorazepam (Ativan Tab) 1 mg NOW STAT PO 06/06/17 22:33 06/06/17 22:34 DC 06/06/17 22:44 1 MG Benztropine Mesylate (Cogentin Tab) 1 mg NOW STAT PO 06/06/17 23:14 06/06/17 23:17 DC 06/07/17 01:16 1 MG Clonazepam (Klonopin Tab) 0.5 mg NOW STAT PO 06/06/17 23:14 06/06/17 23:17 DC 06/07/17 01:16 0.5 MG Gabapentin (Neurontin Tab) 300 mg NOW STAT PO 06/06/17 23:14 06/06/17 23:17 DC 06/07/17 01:17 300 MG Hydroxyzine HCl (Vistaril Tab) 50 mg NOW STAT PO 06/06/17 23:14 06/06/17 23:17 DC 06/07/17 01:18 50 MG Risperidone (Risperdal Tab) 2.5 mg NOW ONCE PO 06/06/17 23:15 06/06/17 23:17 DC 06/07/17 01:18 2.5 MG Metronidazole (Flagyl Tab) 500 mg NOW STAT PO 06/07/17 00:31 06/07/17 00:33 DC 06/07/17 01:18 500 MG Caribou Carbonate (Caribou Carbonate Tab) 600 mg ONE STAT PO 06/07/17 00:31 06/07/17 00:33 DC 06/07/17 01:19 600 MG Rivaroxaban (Xarelto Tab) 20 mg ONE STAT PO 06/07/17 00:59 06/07/17 01:00 DC 06/07/17 01:19 20 MG Gabapentin (Neurontin Cap) 300 mg ONE ONCE PO 06/07/17 11:45 06/07/17 11:46 DC 06/07/17 15:13 300 MG Hydroxyzine HCl (Vistaril Tab) 25 mg ONE ONCE PO 06/07/17 11:30 06/07/17 11:31 DC 06/07/17 15:11 25 MG Levothyroxine Sodium (Synthroid Tab) 75 mcg ONE ONCE PO 06/07/17 11:45 06/07/17 11:46 DC 06/07/17 15:13 75 MCG Caribou Carbonate (Eskalith Cr Tab) 450 mg ONE ONCE PO 06/07/17 11:45 06/07/17 11:46 DC 06/07/17 15:12 450 MG Multivitamins (Multivitamin Tab) 1 tab ONE ONCE PO 06/07/17 11:45 06/07/17 11:46 DC 06/07/17 15:12 1 TAB Pantoprazole Sodium (Protonix Tab) 40 mg ONE ONCE PO 06/07/17 11:30 06/07/17 11:31 DC 06/07/17 15:36 40 MG Potassium Chloride (Klor-Con Tab) 20 meq ONE ONCE PO 06/07/17 11:45 06/07/17 11:46 DC 06/07/17 15:12 20 MEQ Senna (Senokot Tab) 17.2 mg ONE ONCE PO 06/07/17 11:45 06/07/17 11:46 DC 06/07/17 15:13 17.2 MG Venlafaxine HCl (effeXOR TAB) 75 mg ONE ONCE PO 06/07/17 12:00 06/07/17 12:01 DC 06/07/17 15:13 75 MG Risperidone (Risperdal Tab) 1 mg ONE ONCE PO 06/07/17 11:30 06/07/17 11:31 DC 06/07/17 15:37 1 MG Benztropine Mesylate (Cogentin Tab) 1 mg TODAY@1130 PO 06/07/17 11:30 06/07/17 16:00 DC 06/07/17 15:36 1 MG ED Course 1750: The patient was evaluated in room A8. A complete history and physical examination were performed. 1807: Ordered heparin Sodium 5 ml .ROUTE. 1957: Ordered Oxycodone HCl 5 mg PO. 2101: The patient will be brought upstairs to [facility]. 2119: Ordered Oxycodone HCl 5 mg PO. 3: Ordered Lorazepam 1 mg PO. 2314: Ordered Vistaril Tab 50 mg PO, Gabapentin 300 mg PO, Clonazepam 0.5 mg Po , Cogentin Tab 1 mg PO. 2315: Ordered Risperidone 2.5 mg PO. 2326: [facility] evaluated the patient with the emergency department mental health rifle case repairer. They do not feel she is a good candidate for their inpatient unit because the patient currently is receiving IV antibiotics. Will try to safety plan the patient and her mother. This was unsuccessful so a bed search is currently underway. 0030: The patient was signed out to Dr. Freeman at the change of shifts. Pending bed search. Medical Decision Differential diagnosis: Etiologies such as mood disorder, infection, hypoglycemia, electrolyte abnormalities, cardiac sources, intracerebral event, toxicologic, neurologic, as well as others were entertained. Additional history was obtained from the patient's mother. The patient is a 32-year-old female who has multiple problems including a wound in her right side which she is currently receiving antibiotic for as well as chronic urinary tract infections and pain. The patient started having problems with her mental health today. She was sent to the emergency department by her primary therapist for an evaluation of possible admission. The patient was medically cleared in the emergency department. She was not felt to be a good candidate for inpatient management our facility because of her medical needs. A bed search was underway. The patient was treated with her usual medications. The patient was signed out to the nightclub manager physician pending bed search. Please see his note for continuation of care and final plan. Medication Reconcilliation Current Medication List: was personally reviewed by me Blood Pressure Screening Patient's blood pressure: Normal blood pressure Impression Primary Impression: Depression Additional Impressions: Suicidal ideation chronic right thigh pressure sore Scribe Attestation The scribe's documentation has been prepared under my direction and personally reviewed by me in its entirety. I confirm that the note above accurately reflects all work, treatment, procedures, and medical decision making performed by me. Departure Information Referrals Gela Boone M.D. (PCP) Patient Instructions My [facility] Problem Qualifiers Primary Impression: Depression Depression Type: unspecified Qualified Codes: F32.9 - Major depressive disorder, single episode, unspecified
[2017-06-06] MEDS ORDERED: MENTOIN TOP (18:13)
[2017-06-06] MEDS ORDERED: XPNINS NEB (18:14)
[2017-06-06 19:36] LABS: BASO % 0.4 %; BASO ABS # 0.03 K/uL (0-0.2); EOS ABS # 0.57 K/uL (0-0.5); HEMOGLOBIN 11.5 g/dL (12.0-16.0); IG# 0.04 K/uL (0.00-0.02); LYMPH % 25.6 %; LYMPH ABS # 2.08 K/uL (1.2-3.4); MEAN CELL VOLUME 97.9 fL (80-100); MEAN CORPUSCULAR HEMOGLOBIN 30.4 pg (25-34); MEAN CORPUSCULAR HGB CONC 31.1 g/dl (32-36); MEAN PLATELET VOLUME 10.1 fL (7.4-10.4); MONO % 7.1 %; MONO ABS # 0.58 K/uL (0.11-0.59); NEUT % 59.4 %; NEUT ABS # 4.82 K/uL (1.4-6.5); PLATELET COUNT 270 K/uL (130-400); RED CELL DISTRIBUTION WIDTH CV 16.3 % (11.5-14.5); RED CELL DISTRIBUTION WIDTH SD 58.4 fL (36.4-46.3); WHITE BLOOD COUNT 8.12 K/uL (4.8-10.8)
[2017-06-06 19:58] LABS: ALBUMIN 2.4 gm/dl (3.4-5.0); ALT/SGPT 16 U/L (12-78); AST/SGOT 14 U/L (15-37); BLOOD UREA NITROGEN 10 mg/dl (7-18); CALCIUM 8.8 mg/dl (8.5-10.1); CARBON DIOXIDE 24 mmol/L (21-32); CREATININE 0.48 mg/dl (0.60-1.20); GLUCOSE 93 mg/dl (70-99); POTASSIUM 3.8 mmol/L (3.5-5.1); SODIUM 140 mmol/L (136-145)
[2017-06-06] MEDS ORDERED: OXYCODONE HCL IR 5 MG TAB (IMMEDIATE RELEASE) PO STA ×2 (19:58→21:20)
[2017-06-06 20:05] LABS: ALKALINE PHOSPHATASE 123 U/L (45-117); TOTAL PROTEIN 6.4 gm/dl (6.4-8.2)
[2017-06-06] MEDS ORDERED: LORAZEPAM 1 MG TAB PO STA (22:33)
[2017-06-06] MEDS ORDERED: GABAPENTIN 600 MG TAB PO STA (23:14)
[2017-06-06] MEDS ORDERED: CLONAZEPAM 0.5 MG TAB PO STA (23:14)
[2017-06-06] MEDS ORDERED: hydrOXYzine HCL 25 MG TAB PO STA (23:14)
[2017-06-06] MEDS ORDERED: BENZTROPINE MESYLATE 1 MG TAB PO STA (23:14)
[2017-06-06] MEDS ORDERED: RISPERIDONE 1 MG TAB PO ONE (23:15)
[2017-06-07] MEDS ORDERED: LITHIUM CARBONATE 300 MG TAB PO STA (00:31)
[2017-06-07] MEDS ORDERED: RIVAROXABAN TAB 15 MG TAB PO STA (00:31)
[2017-06-07] MEDS ORDERED: METRONIDAZOLE 250 MG TAB PO STA (00:31)
[2017-06-07] MEDS ORDERED: RIVAROXABAN 10 MG TAB PO STA (00:59)
--- NOTE | 2017-06-07 06:59 | EMERGENCY ROOM VISIT NOTE ---
ED Visit Note First contact with patient: 01:29 32 yr old female signed out to me by Dr Haile awaiting bed placement on [facility] basis due to hearing increased voices telling her to cut herself and stop eating. Prolonged attempt overnight to place but due to chronic leg wound on IV abx difficulty finding place in night. Search postponed until am and patient signed out to Dr Lyman awaiting placement.
[2017-06-07] MEDS ORDERED: NURSING VERBAL MED ORDER ONE ×2 (11:00→16:30)
[2017-06-07] MEDS ORDERED: ONDANSETRON INJ 2 MG/ML 2 ML VIAL IV PRN (11:30)
[2017-06-07] MEDS ORDERED: hydrOXYzine HCL 25 MG TAB PO ONE (11:30)
[2017-06-07] MEDS ORDERED: BENZTROPINE MESYLATE 1 MG TAB PO SCH (11:30)
[2017-06-07] MEDS ORDERED: ONDANSETRON 4MG OD TAB SL PRN (11:30)
[2017-06-07] MEDS ORDERED: WOUND DRESSINGS EXT SCH (11:30)
[2017-06-07] MEDS ORDERED: MECLIZINE HCL 12.5 MG TAB PO PRN (11:30)
[2017-06-07] MEDS ORDERED: ALBUTEROL HFA 8 GM INHALER INH PRN (11:30)
[2017-06-07] MEDS ORDERED: ALUMINUM/MAGNESIUM SUSP 30 ML UDC PO PRN (11:30)
[2017-06-07] MEDS ORDERED: MAGNESIUM HYDROXIDE SUSP 30 ML UDC PO PRN (11:30)
[2017-06-07] MEDS ORDERED: SODIUM CHLORIDE 0.65% NA SOLN 45 ML (OCEAN) PRN (11:30)
[2017-06-07] MEDS ORDERED: BENZTROPINE MESYLATE 1 MG TAB PO ONE (11:30)
[2017-06-07] MEDS ORDERED: hydrOXYzine HCL 25 MG TAB PO PRN ×2 (11:30)
[2017-06-07] MEDS ORDERED: LEVALBUTEROL 0.63MG/3 ML NEB INH PRN (11:30)
[2017-06-07] MEDS ORDERED: DOCUSATE SODIUM 100 MG CAP PO PRN (11:30)
[2017-06-07] MEDS ORDERED: MENTHOL-ZINC OXIDE 360 APPLN/120 GM TUBE EXT PRN (11:30)
[2017-06-07] MEDS ORDERED: RISPERIDONE 1 MG TAB PO ONE (11:30)
[2017-06-07] MEDS ORDERED: BISMUTH SUBSALICYLATE PER ML OMNICELL CHARGE PO PRN (11:30)
[2017-06-07] MEDS ORDERED: PANTOprazole SOD 40 MG TAB PO ONE (11:30)
[2017-06-07] MEDS ORDERED: HYOSCYAMINE SULFATE 0.125 MG SL TAB PO ONE (11:45)
[2017-06-07] MEDS ORDERED: MULTIVITAMIN TAB PO ONE (11:45)
[2017-06-07] MEDS ORDERED: GABAPENTIN 300 MG CAP PO ONE (11:45)
[2017-06-07] MEDS ORDERED: SENNA 8.6 MG TAB PO ONE (11:45)
[2017-06-07] MEDS ORDERED: LEVOTHYROXINE 75 MCG TAB PO ONE (11:45)
[2017-06-07] MEDS ORDERED: POTASSIUM CHLORIDE 20 MEQ TABCR PO ONE (11:45)
[2017-06-07] MEDS ORDERED: LITHIUM CARBONATE 450 MG TABCR PO ONE (11:45)
--- NOTE | 2017-06-07 11:53 | EMERGENCY ROOM VISIT NOTE ---
ED Visit Note First contact with patient: 07:08 Patient was signed out to me awaiting placement. Daily medicines been ordered. Patient was accepted at [address] Sauceda, discontinue PICC line and IV antibiotics.
[2017-06-07 11:56] VITALS: O2SAT 93
[2017-06-07] MEDS ORDERED: VENLAFAXINE HCL 37.5 MG TAB PO ONE (12:00)
[2017-06-07] MEDS ORDERED: FERROUS SULFATE 325 MG TAB PO ONE (12:30)
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
[2017-06-07] MEDS ORDERED: EFFSR75 PO (13:36)
[2017-06-07] MEDS ORDERED: PANT40TA PO (13:43)
[2017-06-07 13:47] VITALS: BMI 75.8
[2017-06-07] MEDS ORDERED: NON-FORMULARY MEDICATION (Probiotic Product (Probiotic) 1 CAP) PO SCH (14:00)
[2017-06-07] MEDS ORDERED: LINZESS~ORDER AWAITING ACTION SCH (14:00)
[2017-06-07] MEDS ORDERED: DOCU-94 PO (14:09)
[2017-06-07] MEDS ORDERED: SENN-61 PO (14:09)
[2017-06-07] MEDS ORDERED: POLY335019 PO (14:10)
[2017-06-07] MEDS ORDERED: TOPI1CAP12 PO (14:13)
[2017-06-07 14:23] VITALS: BP 123/74; TEMP 36.6; Ht 119.4 cm; Wt 108.0 kg
[2017-06-07] MEDS: HYOSCYAMINE SULFATE 0.125 MG SL TAB PO SCH ×2 (15:13→21:54)
[2017-06-07] MEDS: OXYCODONE HCL IR 5 MG TAB (IMMEDIATE RELEASE) PO PRN (15:14)
[2017-06-07] MEDS: LITHIUM CARBONATE 300 MG TAB PO SCH (17:36)
[2017-06-07] MEDS: SUCRALFATE 1 GM/10 ML UDC PO SCH ×2 (17:36→21:54)
[2017-06-07] MEDS: FERROUS SULFATE 325 MG TAB PO SCH (17:37)
[2017-06-07] MEDS: POTASSIUM CHLORIDE 20 MEQ TABCR PO SCH (17:38)
[2017-06-07] MEDS ORDERED: PANTOprazole SOD 40 MG TAB PO SCH (21:00)
[2017-06-07] MEDS: BENZTROPINE MESYLATE 1 MG TAB PO SCH (21:54)
[2017-06-07] MEDS: DOCUSATE SODIUM 100 MG CAP PO SCH (21:54)
[2017-06-07] MEDS: GABAPENTIN 300 MG CAP PO SCH (21:54)
[2017-06-07] MEDS: FLUTICASONE/SALMETEROL (ADVAIR) 500/50 INH 14 PUFF INH SCH (21:54)
[2017-06-07] MEDS: QUDEXY PO SCH (21:55)
[2017-06-07] MEDS: RISPERIDONE 1 MG TAB PO SCH (21:56)
[2017-06-07] MEDS: CHOLECALCIFEROL 1000 INTER.UNIT TAB PO SCH (21:57)
[2017-06-07] MEDS: MONTELUKAST SOD 10 MG TAB PO SCH (21:57)
[2017-06-07] MEDS: SENNA 8.6 MG TAB PO SCH (21:57)
[2017-06-07] MEDS: hydrOXYzine HCL 25 MG TAB PO SCH (21:57)
[2017-06-08 06:47] VITALS: BP 96/61; PULSE 72; TEMP 36.3
[2017-06-08] MEDS: SUCRALFATE 1 GM/10 ML UDC PO SCH ×5 (08:00→20:57)
[2017-06-08] MEDS ORDERED: LINACLOTIDE 290 MCG CAP PO SCH (08:00)
[2017-06-08] MEDS: PANTOprazole SOD 40 MG TAB PO SCH (09:00)
[2017-06-08] MEDS: POLYETHYLENE (MIRALAX) 17 GM PACK PO SCH (09:00)
[2017-06-08] MEDS ORDERED: SENNA 8.6 MG TAB PO SCH (09:00)
[2017-06-08] MEDS: FERROUS SULFATE 325 MG TAB PO SCH ×2 (11:20→17:25)
[2017-06-08] MEDS: FLUTICASONE/SALMETEROL (ADVAIR) 500/50 INH 14 PUFF INH SCH ×2 (11:20→20:56)
[2017-06-08] MEDS: BENZTROPINE MESYLATE 1 MG TAB PO SCH ×2 (11:20→20:57)
[2017-06-08] MEDS: HYOSCYAMINE SULFATE 0.125 MG SL TAB PO SCH ×3 (11:20→20:59)
[2017-06-08] MEDS: LINACLOTIDE 290 MCG CAP PO SCH (11:20)
[2017-06-08] MEDS: POTASSIUM CHLORIDE 20 MEQ TABCR PO SCH ×2 (11:20→17:26)
[2017-06-08] MEDS: DOCUSATE SODIUM 100 MG CAP PO SCH ×2 (11:20→20:58)
[2017-06-08] MEDS: LEVOTHYROXINE 75 MCG TAB PO SCH (11:20)
[2017-06-08] MEDS: LITHIUM CARBONATE 450 MG TABCR PO SCH (11:20)
[2017-06-08] MEDS: VENLAFAXINE HCL XR 75 MG CAPXR PO SCH (11:20)
[2017-06-08] MEDS: CHOLECALCIFEROL 1000 INTER.UNIT TAB PO SCH ×2 (11:21→21:00)
[2017-06-08] MEDS: hydrOXYzine HCL 25 MG TAB PO SCH ×2 (11:21→21:01)
[2017-06-08] MEDS: QUDEXY PO SCH ×2 (11:21→20:59)
[2017-06-08] MEDS: RIVAROXABAN 20 MG TAB PO SCH (11:21)
[2017-06-08] MEDS: MULTIVITAMIN TAB PO SCH (11:21)
[2017-06-08] MEDS: GABAPENTIN 300 MG CAP PO SCH ×2 (11:21→20:59)
[2017-06-08] MEDS: FAMOTIDINE 20 MG TAB PO SCH (11:21)
[2017-06-08] MEDS: SENNA 8.6 MG TAB PO SCH (11:21)
[2017-06-08] MEDS: CYANOCOBALAMIN 500 MCG TAB (VIT B-12) PO SCH (11:21)
[2017-06-08] MEDS: RISPERIDONE 1 MG TAB PO SCH ×2 (11:21→21:00)
--- NOTE | 2017-06-08 11:24 | Psychiatric Progress Notes ---
Progress Note Date of Service Jun 08, 2017. Interval History Connie Chairez is a 32-year-old female admitted on 06/07/17 who currently lives in [place] with her mother, has a history of schizoaffective disorder, bipolar type and multiple medical problems, and presented to the emergency room with suicidal ideation and a plan to cut her wrist. She was was admitted on a 201 voluntary commitment. Chief Complaint "Eh...I want to ". Subjective Patient was seen & assessed interval progress reviewed with Nursing. - wound care consult ordered - stressors of moving to new house, difficulty being on bed rest Pt was seen today to asses progress since admission. Pt reports mood as "eh". She indicates early in interview that she has "given up", stating "I want to ". Pt states initially that she has been "starving myself because I know that will work, but it's not quick". Pt clarifies that due to dietary changes deemed necessary for wound healing, she has had to change eating habits. She states food now makes her nauseous and prevents her from eating. Pt continues to endorse SI with plan to either continue to starve or cut herself. Pt states urges to cut continue while on the unit. Pt reports she misses her emotional support dog and has been informed by her parents that the dog misses her, causing her to feel "guilty". Pt states she feels less sedated since yesterday and can think more clearly. She states she continues to be frustrated that she is on bed rest, stating she is ordered to not be in her wheelchair for prolonged periods as they feel that contributed to her leg wound's inability to heal. Pt continues to endorse auditory hallucinations saying she hears 11 voices in her head. Pt states Why is the most beneficial medication she has been on for mood stabilization and she is happy that she is beginning to receive it again after her recent hospitalization on the medical floor. No reported concerns for medication side effects. Review of Systems Psych: denies symptoms other than stated above Constitutional: denied Cardiovascular: denied GI: denied Musculoskeletal: periodic pain due to leg wound Neurologic: denied Remainder of 10 body systems also reviewed and denied other than noted above. Sleep Information Total Hours of Sleep: 7.25 Meal Information Percent of Lunch Consumed: 50 Percent of Dinner Consumed: 25 Mental Status Exam During interview pt is: alert and oriented, cooperative Appearance: appropriately dressed, disheveled, other (obese, laying in bed dressed in nightgown.) Eye contact is: good Motor behavior is: no abnormal motor movements Speech: normal in rate, rhythm & volume Affect: depressed Mood is: depressed Thought process: goal directed, clear, coherent Thought content: reality based without delusions Suicidal thought are: present, Plan: present (cutting wrist deeply or starving herself), Intent: denied (Cannot contract for safety outside the hospital) Homicidal thoughts are: denied Hallucinations: auditory Cognition: attention grossly intact, language grossly intact Intelligence estimated to be: average Insight: impaired Judgement: impaired Impression 32-year-old single white female who lives with her parents in [place], has a history of multiple medical problems, is wheelchair bound, schizoaffective disorder bipolar type (and remote history of dissociative identity disorder and bulimia), who is admitted voluntarily with command auditory hallucinations to commit suicide and not to eat, and a plan to cut her wrists. She requires inpatient treatment due to the severity of her symptoms and risk for suicide if discharged. In review of her past history here, she demonstrates multiple borderline personality traits, and suspect there is a significant Boone II component to her presentation as well. Plan (1) Suicidal ideation Every 15 minute checks for safety. Encourage group attendance and participation , work on healthy coping skills and discharge safety plan. Review safety plan with parents, specifically ensuring no access to guns and plan to restrict her access to large amounts of pills given her history of multiple overdoses. She states her mother has already removed also chart objects from the home due to her ongoing urges to cut and suicidal thoughts to slit her wrists. 06/08/17 - SI ongoing with urges to cut wrist. Pt states she refuses to eat, questionable starvation versus tolerability issues as she reports frequent nausea with eating. (2) Schizoaffective disorder, bipolar type -Coordinate care with outpatient psychiatric PA, Ольга Quinones, at [facility]. -Continue home dose of risperidone 1 mg every morning and 2.5 mg daily at bedtime, benztropine 1 mg twice a day, lithium 450 mg every morning and 600 mg every afternoon, and venlafaxine XR 75 mg daily. Hold clonazepam for now, as the patient is sedated and slurring her speech after getting clonazepam and oxycodone in the emergency room, and indicates that she has been sedated at home as well and the clonazepam was being tapered off. -We will need to check a lithium trough, but the patient did not receive her medication in the ER, so we will wait until she has been placed back on the correct dose before ordering it. -Fasting lipid profile from 03/17/2017 was notable for elevated cholesterol 207 and elevated triglycerides 161. Hemoglobin A1c was 5.1, with an estimated average glucose of 100. /09/20 - Continue medications as above. Will assess patient's response to restarting lithium along with the discontinuation of clonazepam to assess level of anxiety and mood symptoms with prescribed medications. Pt given first dose of Why 600mg last PM and first AM dose of Eskalith 450mg this morning. Will need to check Why trough levels when appropriate. Pt appears much less sedated with discontinuation of clonazepam. 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 Continue oxycodone 5 mg twice a day when necessary while in the hospital, but monitor for oversedation as she is on numerous sedating medications. Medically necessary private room due to need for specialized mattress, wound VAC , and extent of medical care needed. (4) GERD (gastroesophageal reflux disease) Continue home dose of Pepcid. (5) Hypothyroidism Continue home dose of levothyroxine. (6) Asthma Continue home dose of Advair, Singulair, and albuterol. Discharge / Aftercare Planning Primary Care Physician: Name: Gela Boone MD Therapist: Name: Sandra Baker [facility]" Date of Appointment: Jun 13, 2017 Time of Appointment: 2:00 pm Appointment Notes: [id number] [facility] [place] [address] Qc Chemist: Name: Rosanne Visit Code E&M Code: 34386 Inventory Assets Strengths: Seeking help, supportive family, has housing, has outpatient providers Needs: Improved coping skills, increased support Risk Factors Assessment : Yes /single/: Yes Higher / Fall in social status: No Health problems: Yes Mental Health Diagnoses: Yes Substance use disorders: No Previous attempt: Yes Previous psychiatric stay: Yes Hopelessness: Yes Smoker: No Protective Factors Assessment Denominational beliefs: Yes : No Responsible for young children: No Employed: No Stable relationships: No Supportive family: Yes Good rapport with provider: Yes Data Vital Signs Last 24 Hrs: Date Time Temp Pulse Resp B/P (MAP) Pulse Ox O2 Delivery O2 Flow Rate FiO2 06/08/17 06:47 36.3 72 16 96/61 06/07/17 14:23 36.6 18 123/74 06/07/17 11:56 60 18 123/74 93 Meds Administered Last 24 Hrs: Meds Administered (Past 24Hrs) Medications (Trade) Dose Ordered Sig/Brenna Route Start Time Stop Time Status Last Admin Dose Admin Heparin Sodium (Porcine) (Heparin 10 Unit/ ml 5 ml Flush) 5 ml STK-MED ONCE .ROUTE 06/06/17 18:08 06/06/17 18:09 DC 06/06/17 18:14 5 ML Oxycodone HCl (Roxicodone Immediate Rel Tab) 5 mg NOW STAT PO 06/06/17 19:58 06/06/17 19:59 DC 06/06/17 20:04 5 MG Oxycodone HCl (Roxicodone Immediate Rel Tab) 5 mg NOW STAT PO 06/06/17 21:20 06/06/17 21:21 DC 06/06/17 21:44 5 MG Lorazepam (Ativan Tab) 1 mg NOW STAT PO 06/06/17 22:33 06/06/17 22:34 DC 06/06/17 22:44 1 MG Benztropine Mesylate (Cogentin Tab) 1 mg NOW STAT PO 06/06/17 23:14 06/06/17 23:17 DC 06/07/17 01:16 1 MG Clonazepam (Klonopin Tab) 0.5 mg NOW STAT PO 06/06/17 23:14 06/06/17 23:17 DC 06/07/17 01:16 0.5 MG Gabapentin (Neurontin Tab) 300 mg NOW STAT PO 06/06/17 23:14 06/06/17 23:17 DC 06/07/17 01:17 300 MG Hydroxyzine HCl (Vistaril Tab) 50 mg NOW STAT PO 06/06/17 23:14 06/06/17 23:17 DC 06/07/17 01:18 50 MG Risperidone (Risperdal Tab) 2.5 mg NOW ONCE PO 06/06/17 23:15 06/06/17 23:17 DC 06/07/17 01:18 2.5 MG Metronidazole (Flagyl Tab) 500 mg NOW STAT PO 06/07/17 00:31 06/07/17 00:33 DC 06/07/17 01:18 500 MG Why Carbonate (Why Carbonate Tab) 600 mg ONE STAT PO 06/07/17 00:31 06/07/17 00:33 DC 06/07/17 01:19 600 MG Rivaroxaban (Xarelto Tab) 20 mg ONE STAT PO 06/07/17 00:59 06/07/17 01:00 DC 06/07/17 01:19 20 MG Ferrous Sulfate (Feosol Tab) 325 mg ONE ONCE PO 06/07/17 12:30 06/07/17 12:31 DC 06/07/17 15:13 325 MG Gabapentin (Neurontin Cap) 300 mg ONE ONCE PO 06/07/17 11:45 06/07/17 11:46 DC 06/07/17 15:13 300 MG Hydroxyzine HCl (Vistaril Tab) 25 mg ONE ONCE PO 06/07/17 11:30 06/07/17 11:31 DC 06/07/17 15:11 25 MG Levothyroxine Sodium (Synthroid Tab) 75 mcg ONE ONCE PO 06/07/17 11:45 06/07/17 11:46 DC 06/07/17 15:13 75 MCG Why Carbonate (Eskalith Cr Tab) 450 mg ONE ONCE PO 06/07/17 11:45 06/07/17 11:46 DC 06/07/17 15:12 450 MG Multivitamins (Multivitamin Tab) 1 tab ONE ONCE PO 06/07/17 11:45 06/07/17 11:46 DC 06/07/17 15:12 1 TAB Pantoprazole Sodium (Protonix Tab) 40 mg ONE ONCE PO 06/07/17 11:30 06/07/17 11:31 DC 06/07/17 15:36 40 MG Potassium Chloride (Klor-Con Tab) 20 meq ONE ONCE PO 06/07/17 11:45 06/07/17 11:46 DC 06/07/17 15:12 20 MEQ Senna (Senokot Tab) 17.2 mg ONE ONCE PO 06/07/17 11:45 06/07/17 11:46 DC 06/07/17 15:13 17.2 MG Venlafaxine HCl (effeXOR TAB) 75 mg ONE ONCE PO 06/07/17 12:00 06/07/17 12:01 DC 06/07/17 15:13 75 MG Risperidone (Risperdal Tab) 1 mg ONE ONCE PO 06/07/17 11:30 06/07/17 11:31 DC 06/07/17 15:37 1 MG Benztropine Mesylate (Cogentin Tab) 1 mg BID PO 06/07/17 21:00 07/07/17 20:59 06/07/17 21:54 1 MG Salmeterol Xinafoate/ Fluticasone (Advair Diskus 500/50 Inh) 1 puff BID INH 06/07/17 21:00 07/07/17 20:59 06/07/17 21:54 1 PUFF Gabapentin (Neurontin Cap) 300 mg BID PO 06/07/17 21:00 07/07/17 20:59 06/07/17 21:54 300 MG Hyoscyamine Sulfate (Levsin Tab) 0.125 mg TID PO 06/07/17 14:00 07/07/17 13:59 06/07/17 21:54 0.125 MG Montelukast Sodium (Singulair Tab) 10 mg HS PO 06/07/17 21:00 07/07/17 20:59 06/07/17 21:57 10 MG Risperidone (Risperdal Tab) 2.5 mg HS PO 06/07/17 21:00 07/07/17 20:59 06/07/17 21:56 2.5 MG Sucralfate (Carafate Susp) 1 gm ACHS PO 06/07/17 17:15 07/07/17 17:14 06/07/17 21:54 1 GM Cholecalciferol (Vitamin D Tab) 2,000 inter.unit BID PO 06/07/17 21:00 07/07/17 20:59 06/07/17 21:57 2,000 INTER.UNIT Ferrous Sulfate (Feosol Tab) 325 mg BIDM PO 06/07/17 17:45 07/07/17 17:44 06/07/17 17:37 325 MG Hydroxyzine HCl (Vistaril Tab) 50 mg HS PO 06/07/17 21:00 07/07/17 20:59 06/07/17 21:57 50 MG Why Carbonate (Why Carbonate Tab) 600 mg PM PO 06/07/17 17:00 07/07/17 16:59 06/07/17 17:36 600 MG Potassium Chloride (Klor-Con Tab) 20 meq BIDM PO 06/07/17 17:45 07/07/17 17:44 06/07/17 17:38 20 MEQ Oxycodone HCl (Roxicodone Immediate Rel Tab) 5 mg BID PRN PO 06/07/17 13:00 06/21/17 12:59 06/07/17 15:14 5 MG Docusate Sodium (coLACE CAP) 100 mg BID PO 06/07/17 22:00 07/07/17 21:59 06/07/17 21:54 100 MG Senna (Senokot Tab) 8.6 mg BID PO 06/07/17 22:00 07/07/17 21:59 06/07/17 21:57 8.6 MG Benztropine Mesylate (Cogentin Tab) 1 mg TODAY@1130 PO 06/07/17 11:30 06/07/17 16:00 DC 06/07/17 15:36 1 MG Non-Formulary Medication (Non-Formulary Patient'S Own Med) 1 ea BID PO 06/07/17 22:00 07/07/17 21:59 06/07/17 21:55 1 EA
--- NOTE | 2017-06-08 14:39 | Wound Progress Note: Inpatient ---
Wound Progress Note Date of Service Jun 08, 2017. Subjective Pt evaluation today including: conversation w/ patient, physical exam, chart review Patient was recently admitted to [facility] for further psychiatric evaluation and treatment. Patient has been long-standing patient at the wound center. There is no new or specific complaints related to the wound on the right leg at this time. Objective Vital Signs Date Time Temp Pulse Resp B/P (MAP) Pulse Ox O2 Delivery O2 Flow Rate FiO2 06/08/17 06:47 36.3 72 16 96/61 Physical Exam Notes: Patients vital signs were reviewed and found to be unremarkable patient is afebrile. Patient appears to be in no pain and is interactive today. The wound site on the posterior aspect of the right leg measures 6 x 9.7 x 2.5 cm with some undermining between 2 and 3:00 1.5 cm. Granulation tissue is evolving at the base. There is no significant central slough active drainage or odor present there is no periwound erythema or excoriation noted. Assessment and Plan Assessment: Traumatic wound right leg Plan: At this time no debridement is indicated. The site will be dressed today with Aquacel Ag and gauze tomorrow the dressings will be changed to a wound VAC black foam 125 mm of negative pressure wound VAC change Monday. Patient will continue to be monitored during her hospital course and reevaluated as needed. Patient will also be followed in the outpatient clinic upon discharge.
[2017-06-08] MEDS: LITHIUM CARBONATE 300 MG TAB PO SCH (17:09)
[2017-06-08] MEDS: MONTELUKAST SOD 10 MG TAB PO SCH (21:00)
[2017-06-09 06:39] VITALS: BP 92/53; PULSE 68; TEMP 36.5
[2017-06-09] MEDS: LINACLOTIDE 290 MCG CAP PO SCH (08:00)
[2017-06-09] MEDS ORDERED: SENNA 8.6 MG TAB PO SCH (09:00)
[2017-06-09] MEDS ORDERED: DOCUSATE SODIUM 100 MG CAP PO SCH (09:00)
[2017-06-09] MEDS: POLYETHYLENE (MIRALAX) 17 GM PACK PO SCH (09:00)
[2017-06-09] MEDS: VENLAFAXINE HCL XR 75 MG CAPXR PO SCH (09:08)
[2017-06-09] MEDS: FLUTICASONE/SALMETEROL (ADVAIR) 500/50 INH 14 PUFF INH SCH ×2 (09:08→20:37)
[2017-06-09] MEDS: SUCRALFATE 1 GM/10 ML UDC PO SCH ×4 (09:08→20:38)
[2017-06-09] MEDS: BENZTROPINE MESYLATE 1 MG TAB PO SCH ×2 (09:08→20:38)
[2017-06-09] MEDS: LEVOTHYROXINE 75 MCG TAB PO SCH (09:08)
[2017-06-09] MEDS: MULTIVITAMIN TAB PO SCH (09:09)
[2017-06-09] MEDS: LITHIUM CARBONATE 450 MG TABCR PO SCH (09:09)
[2017-06-09] MEDS: PANTOprazole SOD 40 MG TAB PO SCH (09:09)
[2017-06-09] MEDS: HYOSCYAMINE SULFATE 0.125 MG SL TAB PO SCH ×3 (09:09→20:40)
[2017-06-09] MEDS: FERROUS SULFATE 325 MG TAB PO SCH ×2 (09:09→17:21)
[2017-06-09] MEDS: GABAPENTIN 300 MG CAP PO SCH ×2 (09:09→20:41)
[2017-06-09] MEDS: POTASSIUM CHLORIDE 20 MEQ TABCR PO SCH ×2 (09:09→17:21)
[2017-06-09] MEDS: CYANOCOBALAMIN 500 MCG TAB (VIT B-12) PO SCH (09:10)
[2017-06-09] MEDS: CHOLECALCIFEROL 1000 INTER.UNIT TAB PO SCH ×2 (09:10→20:41)
[2017-06-09] MEDS: RISPERIDONE 1 MG TAB PO SCH ×2 (09:10→20:38)
[2017-06-09] MEDS: FAMOTIDINE 20 MG TAB PO SCH (09:11)
[2017-06-09] MEDS: RIVAROXABAN 20 MG TAB PO SCH (09:11)
[2017-06-09] MEDS: hydrOXYzine HCL 25 MG TAB PO SCH ×2 (09:13→20:40)
[2017-06-09] MEDS: QUDEXY PO SCH (09:13)
--- NOTE | 2017-06-09 11:20 | Psychiatric Progress Notes ---
Progress Note Date of Service Jun 09, 2017. Interval History Connie Chairez is a 32-year-old female admitted on 06/07/17 who currently lives in [place] with her mother, has a history of schizoaffective disorder, bipolar type and multiple medical problems, and presented to the emergency room with suicidal ideation and a plan to cut her wrist. She was was admitted on a 201 voluntary commitment. Chief Complaint "Cruddy.". Subjective Patient was seen & assessed interval progress reviewed with Treatment Team. The patient is feeling physically and mentally unwell today. She is now having incontinent liquid stools, and nursing reports more skin breakdown. She has not been out of bed to participate in programming since yesterday AM. She reports depressed mood related to voices that she says are nonstop. She continues to say that she hears 11 distinct voices, usually 1-2 at a time, telling her to kill herself. She says she goes to bed with them and wakes with them and feels that if she killed herself "then the voices would go away". they are also telling her not to eat, drink or do anything. She knows that the voices aren't real but still finds it hard to resist their instructions. Physically, she reports pain in her head, stomach and leg. She feels both pain and nausea as well as GI unrest. She says that she is able to keep herself safe in the hospital and is not at risk of attempting. 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) Psychiatric: + depression symptoms (with hallucinations) Sleep Information Total Hours of Sleep: 6.75 Meal Information Percent of Breakfast Consumed: 10 Percent of Lunch Consumed: 0 Percent of Dinner Consumed: 10 Mental Status Exam During interview pt is: alert and oriented, cooperative Appearance: appropriately dressed (in gowns), disheveled Eye contact is: fair Motor behavior is: no abnormal motor movements Speech: normal in rate, rhythm & volume Affect: depressed Mood is: depressed Thought process: goal directed, clear, coherent Thought content: reality based without delusions Suicidal thought are: present, Plan: denied Homicidal thoughts are: denied Hallucinations: auditory, denies visual Cognition: attention grossly intact, language grossly intact Intelligence estimated to be: average Insight: impaired Judgement: impaired Impression Not able to participate in programming due to diarrhea, wound vac. C-diff sent , results pending. Have talked with [facility] hospitalists who agree to move to medical floor if C-diff positive, otherwise will continue to manage here if condition allows. Will increase Risperdal to 2 mg AM and 2.5 mg. HS Plan (1) Suicidal ideation Every 15 minute checks for safety. Encourage group attendance and participation , work on healthy coping skills and discharge safety plan. Review safety plan with parents, specifically ensuring no access to guns and plan to restrict her access to large amounts of pills given her history of multiple overdoses. She states her mother has already removed also chart objects from the home due to her ongoing urges to cut and suicidal thoughts to slit her wrists. 06/08/17 - SI ongoing with urges to cut wrist. Pt states she refuses to eat, questionable starvation versus tolerability issues as she reports frequent nausea with eating. (2) Schizoaffective disorder, bipolar type -Coordinate care with outpatient psychiatric PA, Ольга Quinones, at [place]. -Continue home dose of risperidone 1 mg every morning and 2.5 mg daily at bedtime, benztropine 1 mg twice a day, lithium 450 mg every morning and 600 mg every afternoon, and venlafaxine XR 75 mg daily. Hold clonazepam for now, as the patient is sedated and slurring her speech after getting clonazepam and oxycodone in the emergency room, and indicates that she has been sedated at home as well and the clonazepam was being tapered off. -We will need to check a lithium trough, but the patient did not receive her medication in the ER, so we will wait until she has been placed back on the correct dose before ordering it. -Fasting lipid profile from 03/17/2017 was notable for elevated cholesterol 207 and elevated triglycerides 161. Hemoglobin A1c was 5.1, with an estimated average glucose of 100. /09/20 - Continue medications as above. Will assess patient's response to restarting lithium along with the discontinuation of clonazepam to assess level of anxiety and mood symptoms with prescribed medications. Pt given first dose of [place] 600mg last PM and first AM dose of [place] 450mg this morning. Will need to check [place] trough levels when appropriate. Pt appears much less sedated with discontinuation of clonazepam. 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 Continue oxycodone 5 mg twice a day when necessary while in the hospital, but monitor for oversedation as she is on numerous sedating medications. Medically necessary private room due to need for specialized mattress, wound VAC , and extent of medical care needed. (4) GERD (gastroesophageal reflux disease) Continue home dose of Pepcid. (5) Hypothyroidism Continue home dose of levothyroxine. (6) Asthma Continue home dose of Advair, Singulair, and albuterol. (7) Diarrhea /5 - C-dff sent - Protect from skin breakdown Discharge / Aftercare Planning Primary Care Physician: Name: Gela Boone MD Psychiatrist: Name: Abelardo Power Date of Appointment: Jun 19, 2017 Time of Appointment: 9:00 am Appointment Notes: [id number] [place] [id number] Therapist: Name: Sandra Baker "[facility]" Date of Appointment: Jun 13, 2017 Time of Appointment: 2:00 pm Appointment Notes: [address] [place] [address] Group Sales Coordinator: Name: Rosanne Visit Code E&M Code: 78484 Inventory Assets Strengths: Seeking help, supportive family, has housing, has outpatient providers Needs: Improved coping skills, increased support Risk Factors Assessment : Yes /single/: Yes Higher / Fall in social status: No Health problems: Yes Mental Health Diagnoses: Yes Substance use disorders: No Previous attempt: Yes Previous psychiatric stay: Yes Hopelessness: Yes Smoker: No Protective Factors Assessment Sabianist beliefs: Yes : No Responsible for young children: No Employed: No Stable relationships: No Supportive family: Yes Good rapport with provider: Yes Data Vital Signs Last 24 Hrs: Date Time Temp Pulse Resp B/P (MAP) Pulse Ox O2 Delivery O2 Flow Rate FiO2 06/09/17 06:39 36.5 68 18 92/53 Meds Administered Last 24 Hrs: Meds Administered (Past 24Hrs) Medications (Trade) Dose Ordered Sig/Brenna Route Start Time Stop Time Status Last Admin Dose Admin Ferrous Sulfate (Feosol Tab) 325 mg ONE ONCE PO 06/07/17 12:30 06/07/17 12:31 DC 06/07/17 15:13 325 MG Gabapentin (Neurontin Cap) 300 mg ONE ONCE PO 06/07/17 11:45 06/07/17 11:46 DC 06/07/17 15:13 300 MG Hydroxyzine HCl (Vistaril Tab) 25 mg ONE ONCE PO 06/07/17 11:30 06/07/17 11:31 DC 06/07/17 15:11 25 MG Levothyroxine Sodium (Synthroid Tab) 75 mcg ONE ONCE PO 06/07/17 11:45 06/07/17 11:46 DC 06/07/17 15:[address] [place] Carbonate (Eskalith Cr Tab) 450 mg ONE ONCE PO 06/07/17 11:45 06/07/17 11:46 DC 06/07/17 15:12 450 MG Multivitamins (Multivitamin Tab) 1 tab ONE ONCE PO 06/07/17 11:45 06/07/17 11:46 DC 06/07/17 15:12 1 TAB Pantoprazole Sodium (Protonix Tab) 40 mg ONE ONCE PO 06/07/17 11:30 06/07/17 11:31 DC 06/07/17 15:36 40 MG Potassium Chloride (Klor-Con Tab) 20 meq ONE ONCE PO 06/07/17 11:45 06/07/17 11:46 DC 06/07/17 15:12 20 MEQ Senna (Senokot Tab) 17.2 mg ONE ONCE PO 06/07/17 11:45 06/07/17 11:46 DC 06/07/17 15:13 17.2 MG Venlafaxine HCl (effeXOR TAB) 75 mg ONE ONCE PO 06/07/17 12:00 06/07/17 12:01 DC 06/07/17 15:13 75 MG Risperidone (Risperdal Tab) 1 mg ONE ONCE PO 06/07/17 11:30 06/07/17 11:31 DC 06/07/17 15:37 1 MG Benztropine Mesylate (Cogentin Tab) 1 mg BID PO 06/07/17 21:00 07/07/17 20:59 06/09/17 09:08 1 MG Cyanocobalamin (Vitamin B-12 Tab) 500 mcg DAILY PO 06/08/17 09:00 07/08/17 08:59 06/09/17 09:10 500 MCG Famotidine (Pepcid Tab) 40 mg DAILY PO 06/08/17 09:00 07/08/17 08:59 06/09/17 09:11 40 MG Salmeterol Xinafoate/ Fluticasone (Advair Diskus 500/50 Inh) 1 puff BID INH 06/07/17 21:00 07/07/17 20:59 06/09/17 09:08 1 PUFF Gabapentin (Neurontin Cap) 300 mg BID PO 06/07/17 21:00 07/07/17 20:59 06/09/17 09:09 300 MG Hydroxyzine HCl (Vistaril Tab) 25 mg QAM PO 06/08/17 09:00 07/08/17 08:59 06/09/17 09:13 25 MG Hyoscyamine Sulfate (Levsin Tab) 0.125 mg TID PO 06/07/17 14:00 07/07/17 13:59 06/09/17 09:09 0.125 MG Levothyroxine Sodium (Synthroid Tab) 75 mcg DAILYBB PO 06/08/17 08:00 07/08/17 07:59 06/09/17 09:[address] [place] Carbonate (Eskalith Cr Tab) 450 mg QAM PO 06/08/17 09:00 07/08/17 08:59 06/09/17 09:09 450 MG Montelukast Sodium (Singulair Tab) 10 mg HS PO 06/07/17 21:00 07/07/17 20:59 06/08/17 21:00 10 MG Multivitamins (Multivitamin Tab) 1 tab DAILY PO 06/08/17 09:00 07/08/17 08:59 06/09/17 09:09 1 TAB Risperidone (Risperdal Tab) 1 mg QAM PO 06/08/17 09:00 07/08/17 08:59 06/09/17 09:10 1 MG Risperidone (Risperdal Tab) 2.5 mg HS PO 06/07/17 21:00 07/07/17 20:59 06/08/17 21:00 2.5 MG Rivaroxaban (Xarelto Tab) 20 mg DAILY PO 06/08/17 09:00 07/08/17 08:59 06/09/17 09:11 20 MG Sucralfate (Carafate Susp) 1 gm ACHS PO 06/07/17 17:15 07/07/17 17:14 06/09/17 09:08 1 GM Venlafaxine HCl (effeXOR EXTENDED REL CAP) 75 mg DAILY PO 06/08/17 09:00 07/08/17 08:59 06/09/17 09:08 75 MG Cholecalciferol (Vitamin D Tab) 2,000 inter.unit BID PO 06/07/17 21:00 07/07/17 20:59 06/09/17 09:10 2,000 INTER.UNIT Ferrous Sulfate (Feosol Tab) 325 mg BIDM PO 06/07/17 17:45 07/07/17 17:44 06/09/17 09:09 325 MG Hydroxyzine HCl (Vistaril Tab) 50 mg HS PO 06/07/17 21:00 07/07/17 20:59 06/08/17 21:[address] [place] Carbonate ([place] Carbonate Tab) 600 mg PM PO 06/07/17 17:00 07/07/17 16:59 06/08/17 17:09 600 MG Potassium Chloride (Klor-Con Tab) 20 meq BIDM PO 06/07/17 17:45 07/07/17 17:44 06/09/17 09:09 20 MEQ Oxycodone HCl (Roxicodone Immediate Rel Tab) 5 mg BID PRN PO 06/07/17 13:00 06/21/17 12:59 06/07/17 15:14 5 MG Docusate Sodium (coLACE CAP) 100 mg BID PO 06/07/17 22:00 06/09/17 08:27 DC 06/08/17 11:20 100 MG Pantoprazole Sodium (Protonix Tab) 40 mg DAILY PO 06/08/17 09:00 07/08/17 08:59 06/09/17 09:09 40 MG Senna (Senokot Tab) 8.6 mg BID PO 06/07/17 22:00 06/08/17 13:51 DC 06/08/17 11:21 8.6 MG Benztropine Mesylate (Cogentin Tab) 1 mg TODAY@1130 PO 06/07/17 11:30 06/07/17 16:00 DC 06/07/17 15:36 1 MG Linaclotide (Linzess) 290 mcg DAILYBB PO 06/08/17 08:00 07/08/17 07:59 06/08/17 11:20 290 MCG Non-Formulary Medication (Non-Formulary Patient'S Own Med) 1 ea BID PO 06/07/17 22:00 07/07/17 21:59 06/09/17 09:13 1 EA Lab Results Last 24 Hrs: 06/06/17 19:21 Red Blood Count 3.78, Mean Corpuscular Volume 97.9, Mean Corpuscular Hemoglobin 30.4, Mean Corpuscular Hemoglobin Concent 31.1, Mean Platelet Volume 10.1, Neutrophils (%) (Auto) 59.4, Lymphocytes (%) (Auto) 25.6, Monocytes (%) (Auto) 7.1, Eosinophils (%) (Auto) 7.0, Basophils (%) (Auto) 0.4, Neutrophils # (Auto) 4.82, Lymphocytes # (Auto) 2.08, Monocytes # (Auto) 0.58, Eosinophils # (Auto) 0.57, Basophils # (Auto) 0.03 06/06/17 19:21 Test 06/06/17 17:51 06/06/17 19:21 Urine Color YELLOW Urine Appearance CLEAR (CLEAR) Urine pH 6.0 (4.5-7.5) Urine Specific [place] 1.010 (1.000-1.030) Urine Protein NEG (NEG) Urine Glucose (UA) NEG (NEG) Urine Ketones NEG (NEG) Urine Occult Blood NEG (NEG) Urine Nitrite POS (NEG) Urine Bilirubin NEG (NEG) Urine Urobilinogen NEG (NEG) Urine Leukocyte Esterase SMALL (NEG) Urine WBC (Auto) 5-10 /hpf (0-5) Urine RBC (Auto) 0-4 /hpf (0-4) Urine Hyaline Casts (Auto) 1-5 /lpf (0-5) Urine Epithelial Cells (Auto) >30 /lpf (0-5) Urine Bacteria (Auto) NEG (NEG) Urine Test NEG (NEG) Urine Opiates Screen NEG (NEG) Urine Methadone, Qualitative NEG (NEG) Urine Barbiturates NEG (NEG) Urine Phencyclidine (PCP) Level NEG (NEG) Ur Amphetamine/Methamphetamine NEG (NEG) MDMA (Ecstasy) Screen NEG (NEG) Urine Benzodiazepines Screen NEG (NEG) Urine Cocaine Metabolite NEG (NEG) Urine Marijuana (THC) NEG (NEG) White Blood Count 8.12 K/uL (4.8-10.8) Red Blood Count 3.78 M/uL (4.2-5.4) Hemoglobin 11.5 g/dL (12.0-16.0) Hematocrit 37.0 % (37-47) Mean Corpuscular Volume 97.9 fL (80-100) Mean Corpuscular Hemoglobin 30.4 pg (25-34) Mean Corpuscular Hemoglobin Concent 31.1 g/dl (32-36) Platelet Count 270 K/uL (130-400) Mean Platelet Volume 10.1 fL (7.4-10.4) Neutrophils (%) (Auto) 59.4 % Lymphocytes (%) (Auto) 25.6 % Monocytes (%) (Auto) 7.1 % Eosinophils (%) (Auto) 7.0 % Basophils (%) (Auto) 0.4 % Neutrophils # (Auto) 4.82 K/uL (1.4-6.5) Lymphocytes # (Auto) 2.08 K/uL (1.2-3.4) Monocytes # (Auto) 0.58 K/uL (0.11-0.59) Eosinophils # (Auto) 0.57 K/uL (0-0.5) Basophils # (Auto) 0.03 K/uL (0-0.2) RDW Standard Deviation 58.4 fL (36.4-46.3) RDW Coefficient of Variation 16.3 % (11.5-14.5) Immature Granulocyte % (Auto) 0.5 % Immature Granulocyte # (Auto) 0.04 K/uL (0.00-0.02) Anion Gap 6.0 mmol/L (3-11) Est Creatinine Clear Calc Drug Dose 142.2 ml/min Estimated GFR () > 150.0 Estimated GFR (Non- 131.6 BUN/Creatinine Ratio 20.7 (10-20) Calcium Level 8.8 mg/dl (8.5-10.1) Total Bilirubin 0.2 mg/dl (0.2-1) Direct Bilirubin < 0.1 mg/dl (0-0.2) Aspartate Amino Transf (AST/SGOT) 14 U/L (15-37) Alanine Aminotransferase (ALT/SGPT) 16 U/L (12-78) Alkaline Phosphatase 123 U/L (45-117) Total Protein 6.4 gm/dl (6.4-8.2) Albumin 2.4 gm/dl (3.4-5.0) Thyroid Stimulating Hormone (TSH) 2.790 uIu/ml (0.300-4.500) Salicylates Level < 1.7 mg/dl (2.8-20) Acetaminophen Level 4 ug/ml (10-30) Date/Time Source Procedure Growth Status 06/09/17 08:55 Stool C.difficile Toxin B Gene (PCR) Pending Received 06/06/17 17:51 Urine,Catheterized Urine Culture - Preliminary Stenotrophomonas Maltophilia Resulted
[2017-06-09] MEDS: ACETAMINOPHEN 325 MG TAB PO PRN ×2 (12:19→21:52)
--- NOTE | 2017-06-09 15:21 | Medical Consult ---
Consultation Date of Consultation: Jun 09, 2017. Attending Physician: Daysi Valderrama MD Reason for Consultation: Urinary tract infection History of Present Illness 32-year-old female well known to the Infectious Disease service with history of spina bifida, severe lower extremity infections requiring bilateral BK amputations, recurrent urinary tract infections, being treated for large open wound of right leg being treated with IV antibiotics and wound care and wound VAC. Was planned to be seen yesterday at the [facility] for possible discontinuation of antibiotics, but developed significant hallucinations and suicidal ideation and so has been admitted to the psychiatry unit for further management. She has had positive urine cultures for stenotrophomonas, but currently denying any significant symptoms consistent with prior urinary tract infections, and urinalysis has shown only 5-10 white blood cells per high-power field. She has not had any reported fever. Urine has not become more cloudy, no flank pain. Has some chronic abdominal pain and nausea, also with diarrhea. She has been seen by wound care and replacement of wound VAC planned. Has had some diarrhea but C difficile PCR negative. Past Medical/Surgical History Medical Problems: (1) Acute mastitis of right breast Status: Acute (2) Acute pyelonephritis Status: Acute (3) Allergic reaction Status: Acute (4) Allergic reaction Status: Acute (5) Asthma with exacerbation Status: Acute (6) Cellulitis of right buttock Status: Acute (7) Chronic headache Status: Acute (8) Chronic UTI (urinary tract infection) Status: Acute (9) Complicated urinary tract infection Status: Acute (10) Decubitus ulcer of right leg, stage 4 Status: Acute (11) Dehydration Status: Acute (12) Delusions Status: Acute (13) Diarrhea Status: Acute (14) Drowsiness Status: Acute (15) Failure of outpatient treatment Status: Acute (16) Gabapentin overdose Status: Acute (17) Hypokalemia Status: Acute (18) Hypokalemia Status: Acute (19) Intractable headache Status: Acute (20) Laceration Status: Acute (21) Leg pain, right Status: Acute (22) Low back pain Status: Acute (23) Lower abdominal pain Status: Acute (24) Lower abdominal pain Status: Acute (25) Mood disorder Status: Acute (26) Mood disorder Status: Acute (27) Multiple drug resistant organism (MDRO) culture positive Status: Acute (28) Nausea Status: Acute (29) Nausea Status: Acute (30) Paranoia Status: Acute (31) Pelvic pain Status: Acute (32) Right flank pain Status: Acute (33) Right leg pain Status: Acute (34) Self-harming behavior Status: Acute (35) Shunt malfunction Status: Acute (36) Shunt malfunction Status: Acute (37) Suicidal ideation Status: Acute (38) Suicidal ideation Status: Acute (39) Suicidal ideation Status: Acute (40) Suprapubic pain Status: Acute (41) Urinary tract infection Status: Acute (42) Urinary tract infection Status: Acute (43) Urinary tract infection Status: Acute (44) UTI (urinary tract infection) Status: Acute (45) UTI (urinary tract infection) Status: Acute (46) Weakness Status: Acute (47) Yeast dermatitis Status: Acute Medical Problems: (1) Allergic reaction caused by a drug (2) Anxiety (3) Asthma (4) Asthma exacerbation (5) Cellulitis (6) Cellulitis of hip, right (7) Gastroparesis (8) GERD (gastroesophageal reflux disease) (9) Hydrocephalus (10) Hypothyroidism (11) Migraines (12) MRSA (methicillin resistant Staphylococcus aureus) (13) Nonhealing nonsurgical wound with necrosis of muscle (14) Osteomyelitis (15) Pulmonary embolism (16) Shunt placement with revision x8 (17) Spina bifida (18) UTI (urinary tract infection) Surgical Problems: (1) S/P BKA (below knee amputation) bilateral Family History Cancer Diabetes mellitus Lung disease Social History Smoking Status: Never Smoker Drug Use: none Marital Status: single Housing Status: lives with family Occupation Status: disabled Allergies Coded Allergies: Adhesives (Verified Allergy, Intermediate, TAPE- HIVES, 06/06/17) Ceftriaxone (Verified Allergy, Intermediate, rash, 06/06/17) Chlorhexidine (Verified Allergy, Intermediate, RASH, 06/06/17) Ciprofloxacin (Verified Allergy, Intermediate, hives, 06/06/17) Imipenem (Verified Allergy, Intermediate, PT REPORTS ITCHING, 06/06/17) Latex (Verified Allergy, Intermediate, hives, 06/06/17) Levofloxacin (Verified Allergy, Intermediate, rash, 06/06/17) Linezolid (Verified Allergy, Intermediate, rash, 06/06/17) Piperacillin (Verified Allergy, Intermediate, SEVERE RASH, HIVES, 06/06/17) Tazobactam (Verified Allergy, Intermediate, SEVERE RASH, HIVES, 06/06/17) Vancomycin (Verified Allergy, Intermediate, rash, 06/06/17) Tobramycin (Verified Allergy, Mild, MILD RASH ON ARM, RED FACE, 06/06/17) IMPROVED AFTER BENADRYL, TAKING REST OF DOSE Amikacin (Verified Allergy, Unknown, PER DR ROBINS,RXN WAS TO ZOSYN NOT AMKrash;hives, 06/06/17) Sulfamethoxazole w/Trimethoprim (Verified Allergy, Unknown, Hives, 06/06/17) Can be pretreated with 10mg Zytrec 45 min prior to admin Current Inpatient Medications Current Inpatient Medications Medications (Trade) Dose Ordered Sig/Brenna Route Start Time Stop Time Status Last Admin Dose Admin Benztropine Mesylate (Cogentin Tab) 1 mg BID PO 06/07/17 21:00 07/07/17 20:59 06/09/17 09:08 1 MG Cyanocobalamin (Vitamin B-12 Tab) 500 mcg DAILY PO 06/08/17 09:00 07/08/17 08:59 06/09/17 09:10 500 MCG Docusate Sodium (coLACE CAP) 100 mg BID PRN PO 06/07/17 11:30 07/07/17 11:29 Famotidine (Pepcid Tab) 40 mg DAILY PO 06/08/17 09:00 07/08/17 08:59 06/09/17 09:11 40 MG Salmeterol Xinafoate/ Fluticasone (Advair Diskus 500/50 Inh) 1 puff BID INH 06/07/17 21:00 07/07/17 20:59 06/09/17 09:08 1 PUFF Gabapentin (Neurontin Cap) 300 mg BID PO 06/07/17 21:00 07/07/17 20:59 06/09/17 09:09 300 MG Hydroxyzine HCl (Vistaril Tab) 25 mg QAM PO 06/08/17 09:00 07/08/17 08:59 06/09/17 09:13 25 MG Hyoscyamine Sulfate (Levsin Tab) 0.125 mg TID PO 06/07/17 14:00 07/07/17 13:59 06/09/17 14:01 0.125 MG Levalbuterol (Xopenex 0.63 Mg/ 3 Ml Neb) 0.63 mg Q4 PRN INH 06/07/17 11:30 07/07/17 11:29 Levothyroxine Sodium (Synthroid Tab) 75 mcg DAILYBB PO 06/08/17 08:00 07/08/17 07:59 06/09/17 09:08 75 MCG [place] Carbonate (Eskalith Cr Tab) 450 mg QAM PO 06/08/17 09:00 07/08/17 08:59 06/09/17 09:09 450 MG Meclizine HCl (Antivert Tab) 25 mg TID PRN PO 06/07/17 11:30 07/07/17 11:29 Menthol/Zinc Oxide (Calmoseptine Oint) 1 appln DAILY PRN EXT 06/07/17 11:30 07/07/17 11:29 Montelukast Sodium (Singulair Tab) 10 mg HS PO 06/07/17 21:00 07/07/17 20:59 06/08/17 21:00 10 MG Multivitamins (Multivitamin Tab) 1 tab DAILY PO 06/08/17 09:00 07/08/17 08:59 06/09/17 09:09 1 TAB Miscellaneous Information (Order Awaiting Action) 1 ea QS N/A 06/07/17 13:45 07/07/17 13:44 Ondansetron HCl (Zofran Inj) 4 mg Q6H PRN IV 06/07/17 11:30 07/07/17 11:29 Ondansetron HCl (Zofran Odt) 4 mg Q8 PRN SL 06/07/17 11:30 07/07/17 11:29 Polyethylene (Miralax Powder Packet) 17 gm DAILY PO 06/08/17 09:00 07/08/17 08:59 Risperidone (Risperdal Tab) 2.5 mg HS PO 06/07/17 21:00 07/07/17 20:59 06/08/17 21:00 2.5 MG Rivaroxaban (Xarelto Tab) 20 mg DAILY PO 06/08/17 09:00 07/08/17 08:59 06/09/17 09:11 20 MG Sucralfate (Carafate Susp) 1 gm ACHS PO 06/07/17 17:15 07/07/17 17:14 06/09/17 12:19 1 GM Venlafaxine HCl (effeXOR EXTENDED REL CAP) 75 mg DAILY PO 06/08/17 09:00 07/08/17 08:59 06/09/17 09:08 75 MG Albuterol (Ventolin Hfa Inhaler) 2 puffs TID PRN INH 06/07/17 11:30 07/07/17 11:29 Cholecalciferol (Vitamin D Tab) 2,000 inter.unit BID PO 06/07/17 21:00 07/07/17 20:59 06/09/17 09:10 2,000 INTER.UNIT Miscellaneous Information (Order Awaiting Action) 1 ea QS N/A 06/07/17 14:00 07/07/17 13:59 Ferrous Sulfate (Feosol Tab) 325 mg BIDM PO 06/07/17 17:45 07/07/17 17:44 06/09/17 09:09 325 MG Hydroxyzine HCl (Vistaril Tab) 50 mg HS PO 06/07/17 21:00 07/07/17 20:59 06/08/17 21:01 50 MG Bluewell Carbonate (Bluewell Carbonate Tab) 600 mg PM PO 06/07/17 17:00 07/07/17 16:59 06/08/17 17:09 600 MG Potassium Chloride (Klor-Con Tab) 20 meq BIDM PO 06/07/17 17:45 07/07/17 17:44 06/09/17 09:09 20 MEQ Miscellaneous Information (Order Awaiting Action) 1 ea QS N/A 06/07/17 14:00 07/07/17 13:59 Acetaminophen (Tylenol Tab) 650 mg Q4H PRN PO 06/07/17 11:30 07/07/17 11:29 06/09/17 12:19 650 MG Bismuth Subsalicylate (Kaopectate Liqd) 15 ml PRN PRN PO 06/07/17 11:30 07/07/17 11:29 Al Hydroxide/Mg Hydroxide (Maalox Susp) 30 ml Q4H PRN PO 06/07/17 11:30 07/07/17 11:29 Magnesium Hydroxide (Milk Of Magnesia Susp) 30 ml DAILY PRN PO 06/07/17 11:30 2/2/18 11:29 Sodium Chloride ([place] Nasal [place]) PRN PRN NA 06/07/17 11:30 07/07/17 11:29 Hydroxyzine HCl (Vistaril Tab) 50 mg HSZ PRN PO 06/07/17 11:30 07/07/17 11:29 Hydroxyzine HCl (Vistaril Tab) 25 mg Q4H PRN PO 06/07/17 11:30 07/07/17 11:29 Oxycodone HCl (Roxicodone Immediate Rel Tab) 5 mg BID PRN PO 06/07/17 13:00 06/21/17 12:59 06/07/17 15:14 5 MG Pantoprazole Sodium (Protonix Tab) 40 mg DAILY PO 06/08/17 09:00 07/08/17 08:59 06/09/17 09:09 40 MG Risperidone (Risperdal Tab) 2 mg QAM PO 06/10/17 09:00 07/10/17 08:59 Topiramate (Qudexy Xr) 100 mg BID PO 06/09/17 22:00 07/07/17 21:59 Review of Systems Constitutional: + weakness, + fatigue, No fever Eyes: No problem reported ENT: No problem reported Respiratory: No problem reported Cardiovascular: No problem reported Abdomen: + pain, + nausea, + diarrhea Musculoskeletal: + muscle pain Genitourinary - Female: + problem reported (Indwelling Meade catheter) Neurologic: + weakness Psychiatric: + problem reported (Hallucinations) Endocrine: No problem reported Hematologic / Lymphatic: No problem reported Allergic / Immunologic: No problem reported Physical Exam Date Time Temp Pulse Resp B/P (MAP) Pulse Ox O2 Delivery O2 Flow Rate FiO2 06/09/17 06:39 36.5 68 18 92/53 General Appearance: WD/WN, no apparent distress Head: normocephalic, atraumatic Eyes: normal inspection, EOMI, sclerae normal ENT: normal ENT inspection, hearing grossly normal, pharynx normal Neck: supple, no adenopathy, thyroid normal, trachea midline Respiratory/Chest: chest non-tender, lungs clear, normal breath sounds, no respiratory distress Cardiovascular: regular rate, rhythm, no gallop, no murmur Abdomen/GI: normal bowel sounds, non tender, soft, no organomegaly Genitourinary - Female: + pertinent finding (Meade catheter draining clear urine) Back: normal inspection, no CVA tenderness Extremities/Musculoskelatal: normal capillary refill, + pertinent finding ( Dressing in place right thigh) Neurologic/Psych: alert, oriented x 3 Skin: normal color, no rash Lymphatic: no adenopathy Laboratory Results RUN DATE: 06/09/17 [facility] LAB PAGE 1 RUN TIME: 1149 Specimen Inquiry PATIENT: LUCERO BERRIOS [facility] # : [id number] AGE/SX: 32/F ROOM: [facility] REG : 06/07/[address]: Daysi Valderrama MD : [id number] BED: 2 DIS : STATUS: ADM IN TLOC: SPEC #: [id number] AUGUSTUS: 06/06/17 STATUS: COMP REQ #: [id number] RECD: 06/06/[address]: Eloy Haile DO SOURCE: URINE CATH ENTR: 06/06/[address] [facility] [address]: [facility]one [facility]: CULTURE UR CATH COMMENTS: Has Specimen Been Obtained/Collected? Y Procedure Result Verified Site URINE CULTURE Final 06/09/17-1149 Organism 1 STENOTROPHOMONAS MALTOPHILIA COLONY COUNT >100,000 CFU/ml SENS SENSITIVITY TO FOLLOW 1. STENOTROPHOMONAS MALTOPHILIA Target Route Dose RX AB Cost M.I.C. IQ ------ ----- ------ -- ------ -------- - ------ TRIMET/SULFA S <=2/38 CEFTAZIDIME R >16 LEVOFLOXACIN S <=2 S = SENSITIVE I = INTERMEDIATE R = RESISTANT END OF REPORT Assessment & Plan Patient with positive urine culture for stenotrophomonas in the setting of indwelling Meade catheter, but no obvious evidence of urinary tract infection and urinalysis not consistent with this diagnosis. For now, I would recommend changing her Meade catheter and holding further antibiotics and follow clinical response. Will discuss further wound management with Dr. Pak.
[2017-06-09] MEDS: LITHIUM CARBONATE 300 MG TAB PO SCH (17:21)
[2017-06-09] MEDS: MONTELUKAST SOD 10 MG TAB PO SCH (20:40)
[2017-06-09] MEDS: TOPIRAMATE 100 MG PO SCH (20:42)
[2017-06-09] MEDS: OXYCODONE HCL IR 5 MG TAB (IMMEDIATE RELEASE) PO PRN (22:58)
[2017-06-10 06:40] VITALS: BP 107/67; PULSE 57; TEMP 36.4
--- NOTE | 2017-06-10 07:35 | Medical Consult ---
History General Date of Service: Jun 10, 2017. Stated Complaint: Schizoeffective Disorder HPI The patient is a 32 year old female who presents to [facility] with complaints of Schizoeffective Disorder. The patient's primary care provider is Gela Boone M.D.. Pt has been in behavior health as treatment for hallucinations and She has suffered from spina bifida and due to recurrent infections of her lower extremity due to mobility issues has suffered B/L BKA, she most recently has been treated acutely for a large posterior thigh wound that required surgical debridement, this transiently improved but has worsened while on behavioral health with a wound consult and wound vac placement. She also has stenotrophomonas uti that ID feels is a contaminant and not an active infection requiring treatment. 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, will have CT head to compare to previous head CT Review of Systems Constitutional: denies: chills, diaphoresis Eyes: reports: other (headache), denies: eye pain, visual changes, blurred vision Cardiovascular: denies: chest pain, chest pressure Respiratory: denies: cough, orthopnea Gastrointestinal: denies: abdominal pain, constipation Genitourinary - Female: denies: dysuria, hematuria Musculoskeletal: denies: back pain, joint pain Integumentary: denies: rash, redness Neurologic: denies: headache, dizziness Psychiatric: reports: anxiety, depression, visual hallucinations (less) Past Medical History Past Medical History: anxiety, asthma, bipolar disorder, other Past Surgical History: cholecystectomy, other Family History Cancer Diabetes mellitus Lung disease Social History Hx Tobacco Use In Past Year?: No Smoking Status: Never Smoker Alcohol: occasional Drug Use: none Marital status: single Housing status: lives with family Occupational Status: disabled Immunizations History of Influenza Vaccine: Unknown History of Tetanus Vaccine?: Unknown History of Pneumococcal: Unknown History of Hepatitis B Vaccine: Unknown History of MDRO History of MDRO: Yes Type of MDRO: MRSA, other Allergies Coded Allergies: Adhesives (Verified Allergy, Intermediate, TAPE- HIVES, 06/06/17) Ceftriaxone (Verified Allergy, Intermediate, rash, 06/06/17) Chlorhexidine (Verified Allergy, Intermediate, RASH, 06/06/17) Ciprofloxacin (Verified Allergy, Intermediate, hives, 06/06/17) Imipenem (Verified Allergy, Intermediate, PT REPORTS ITCHING, 06/06/17) Latex (Verified Allergy, Intermediate, hives, 06/06/17) Levofloxacin (Verified Allergy, Intermediate, rash, 06/06/17) Linezolid (Verified Allergy, Intermediate, rash, 06/06/17) Piperacillin (Verified Allergy, Intermediate, SEVERE RASH, HIVES, 06/06/17) Tazobactam (Verified Allergy, Intermediate, SEVERE RASH, HIVES, 06/06/17) Vancomycin (Verified Allergy, Intermediate, rash, 06/06/17) Tobramycin (Verified Allergy, Mild, MILD RASH ON ARM, RED FACE, 06/06/17) IMPROVED AFTER BENADRYL, TAKING REST OF DOSE Amikacin (Verified Allergy, Unknown, PER DR ROBINS,RXN WAS TO ZOSYN NOT AMKrash;hives, 06/06/17) Sulfamethoxazole w/Trimethoprim (Verified Allergy, Unknown, Hives, 06/06/17) Can be pretreated with 10mg Zytrec 45 min prior to admin Current Medications Reported Home Medications Medications Dose Route/Sig Max Daily Dose Days Date Category Dose Instructions Qudexy Xr (Topiramate) 100 Mg Cap 1 Tab PO BID 06/07/17 Reported Miralax (Polyethylene Glycol 3350) 1 Pow Pow 17 Gm PO DAILY PRN 06/07/17 Reported Senokot (Senna) 8.6 Mg Tab 1 Tab PO BID 06/07/17 Reported Colace (Docusate Sodium) 100 Mg Cap 1 Cap PO BID 06/07/17 Reported Protonix (Pantoprazole Sodium) 40 Mg Tab 40 Mg PO DAILY 06/07/17 Reported Effexor Extended Rel (Venlafaxine Hcl) 75 Mg Capcr 75 Mg PO DAILY 06/07/17 Reported Levalbuterol HCl (Levalbuterol) 0.63 Mg/3 Ml Nebu 3 Ml NEB Q4 PRN 06/06/17 Reported Calmoseptine (Menthol-Zinc Oxide) 1 Oin Oin 1 Dose TOP DAILY PRN 06/06/17 Reported Xarelto (Rivaroxaban) 20 Mg Tab 20 Mg PO DAILY 05/25/17 Reported Senna Lax (Sennosides) 8.6 Mg Tab 17.2 Mg PO DAILY 05/25/17 Reported Levothyroxine Sodium 75 Mcg Tab 75 Mcg PO QAM 05/25/17 Reported TAKE THIS MEDICATION ONCE DAILY 30 MINUTES BEFORE BREAKFAST OR ANY OTHER MEDICATION Potassium Chloride ER (Potassium Chloride) 20 Meq Tab 20 Meq PO BID 05/25/17 Reported Oxycodone HCl 5 Mg Tab 5-10 Mg PO Q8 PRN 05/25/17 Reported Carafate (Sucralfate) 1 Gm/10 Ml Gloria 10 Ml PO QID 05/25/17 Reported Pepcid (Famotidine) 40 Mg Tab 40 Mg PO DAILY 05/25/17 Reported Metronidazole 500 Mg Tab 500 Mg PO TID 05/25/17 Reported Ondansetron Hcl (Ondansetron HCl) 2 Mg/Ml Inj 4 Mg IV Q6H PRN 05/11/17 Rx Risperdal (Risperidone) 1 Mg Tab 2.5 Mg PO HS 05/11/17 Rx TWO and one half 1 MG TABLETS Hydroxyzine HCl 25 Mg Tab 25 Mg PO QAM 04/24/17 Reported Hydroxyzine Pamoate (Hydroxyzine HCl) 25 Mg Tab 50 Mg PO HS 02/10/17 Reported Probiotic (Probiotic Product) 1 Cap Cap 1 Cap PO TID 01/11/17 Reported Nystop (Nystatin (Topical)) 100,000 Unit/Gm Pow 1 Appln TOP UD 01/11/17 Reported Ferrous Sulfate 325 Mg Tab 325 Mg PO BID 12/08/16 Reported Zofran Odt (Ondansetron HCl) 4 Mg Tab 4 Mg SL Q8 PRN 12/08/16 Reported Lithobid Ext Rel (Knierim Carbonate) 450 Mg Tab 450 Mg PO QAM 12/08/16 Reported Risperidone 1 Mg Tab 1 Mg PO QAM 12/08/16 Reported Montelukast Sodium (Montelukast Sod) 10 Mg Tab 10 Mg PO HS 12/08/16 Reported Proair Respiclick (Albuterol Sulfate) 108 Mcg/Act Aer 2 Puffs INH TID PRN 11/13/16 Reported USE PRN ALSO Knierim Carbonate 600 Mg Cap 600 Mg PO QPM 11/13/16 Reported TAKE THIS MEDICATION WITH EVENING MEAL Benztropine Mesylate 1 Mg Tab 1 Mg PO BID 11/13/16 Reported Meclizine Hcl 25 Mg Tab 25 Mg PO TID PRN 10/08/16 Reported Vitamin B-12 (Cyanocobalamin) 500 Mcg Tab 500 Mcg PO DAILY 07/15/16 Reported Multivitamin (Multiple Vitamin) 1 Tab Tab 1 Tab PO DAILY 03/25/16 Reported Levsin (Hyoscyamine Sulfate) 0.125 Mg Tab 0.125 Mg PO TID 02/09/16 Reported Linzess (Linaclotide) 290 Mcg Cap 290 Mcg PO QAM 02/09/16 Reported Gabapentin 300 Mg Cap 300 Mg PO BID 02/09/16 Reported Klonopin (Clonazepam) 0.5 Mg Tab 0.5 Mg PO HS 11/08/15 Reported Hydrofera Blue Foam Dress (Wound Dressings) 1 Pad Pad 1 Ea EXT UD 05/10/15 Reported 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 Advair Diskus 500/50 60 Dose (Fluticasone Prop/Salmeterol) 1 Ea Aerp 1 Puff INH BID 11/19/14 Reported Vitamin D (Cholecalciferol) 2,000 Unit Cap 2,000 Inter.unit PO BID 11/19/14 Reported Physical Physical Exam Vital Signs: Date Time Temp Pulse Resp B/P (MAP) Pulse Ox O2 Delivery O2 Flow Rate FiO2 06/10/17 06:40 36.4 57 16 107/67 General Appearance: WD/WN, uncomfortable, mild distress Head: NORMOCEPHALIC, ATRAUMATIC, other ([employer] shunt is not tender and overly firm) Eyes: PERRLA, EOMI Neck: TRACHEA MIDLINE, SUPPLE Respiratory: BREATH SOUNDS NORMAL, CLEAR TO AUSCULTATION, CLEAR TO PERCUSSION Cardiovasular: NORMAL S1S2, NO MURMUR Abdomen: NON TENDER, NORMAL BOWEL SOUNDS, NO REBOUND Upper Extremities: NO EDEMA, NORMAL ROM Lower Extremities: NO EDEMA, other (wound with wound vac) Neuro: ALERT, ORIENTED x 3 Psychiatric: NORMAL AFFECT, NO SUICIDAL IDEATION Diagnostics Labs Microbiology Results 06/09/17 C.difficile Toxin B Gene (PCR) - Final, Complete No C. difficile toxin B gene detected Impression Assessment and Plan 32 F with bipolar disorder with hallucinations, she has pre existing posterior thigh wound and had recent diarrhea, there was concern for C Diff but negative. Thigh wound, wound care has placed wound vacc, will continue to evaluate Diarrhea, negative C diff, will evaluate if persists and consider anti diarrheals Stenotrophomonas cultured in urine, ID feels a contaminant, and wound not recommend treatment unless fevers or other clinical signs, recommend changing arango C/o headache, will check CT for hypodrocephalus Asthma, will continue xopenex, advair and levabuterol bipolar disorder will continue treatment by primary team History of VTE, will have continued xarelto
[2017-06-10] MEDS: LEVOTHYROXINE 75 MCG TAB PO SCH (07:37)
[2017-06-10] MEDS: SUCRALFATE 1 GM/10 ML UDC PO SCH ×4 (07:37→21:17)
[2017-06-10] MEDS: BENZTROPINE MESYLATE 1 MG TAB PO SCH ×2 (08:33→21:17)
[2017-06-10] MEDS: FLUTICASONE/SALMETEROL (ADVAIR) 500/50 INH 14 PUFF INH SCH ×2 (08:33→21:17)
[2017-06-10] MEDS: POLYETHYLENE (MIRALAX) 17 GM PACK PO SCH (08:34)
[2017-06-10] MEDS: VENLAFAXINE HCL XR 75 MG CAPXR PO SCH (08:34)
[2017-06-10] MEDS: POTASSIUM CHLORIDE 20 MEQ TABCR PO SCH ×2 (08:34→17:28)
[2017-06-10] MEDS: FERROUS SULFATE 325 MG TAB PO SCH ×2 (08:34→17:26)
[2017-06-10] MEDS: HYOSCYAMINE SULFATE 0.125 MG SL TAB PO SCH ×3 (08:34→21:18)
[2017-06-10] MEDS: LITHIUM CARBONATE 450 MG TABCR PO SCH (08:34)
[2017-06-10] MEDS: RISPERIDONE 2 MG TAB PO SCH (08:35)
[2017-06-10] MEDS: MULTIVITAMIN TAB PO SCH (08:35)
[2017-06-10] MEDS: GABAPENTIN 300 MG CAP PO SCH ×2 (08:35→21:18)
[2017-06-10] MEDS: FAMOTIDINE 20 MG TAB PO SCH (08:35)
[2017-06-10] MEDS: PANTOprazole SOD 40 MG TAB PO SCH (08:35)
[2017-06-10] MEDS: TOPIRAMATE 100 MG PO SCH ×2 (08:35→21:18)
[2017-06-10] MEDS: CHOLECALCIFEROL 1000 INTER.UNIT TAB PO SCH ×2 (08:37→21:20)
[2017-06-10] MEDS: RIVAROXABAN 20 MG TAB PO SCH (08:37)
[2017-06-10] MEDS: hydrOXYzine HCL 25 MG TAB PO SCH ×2 (08:37→21:20)
[2017-06-10] MEDS: CYANOCOBALAMIN 500 MCG TAB (VIT B-12) PO SCH (08:37)
--- NOTE | 2017-06-10 12:13 | Psychiatric Progress Notes ---
Progress Note Date of Service Jun 10, 2017. (Cheryle Brody, WILLIAMS) Interval History Connie Chairez is a 32-year-old female admitted on 06/07/17 who currently lives in [place] with her mother, has a history of schizoaffective disorder, bipolar type and multiple medical problems, and presented to the emergency room with suicidal ideation and a plan to cut her wrist. She was was admitted on a 201 voluntary commitment. (Cheryle Brody, WILLIAMS) Chief Complaint "I'm feeling conflicted". (Cheryle Brody, WILLIAMS) Subjective Patient was seen & assessed interval progress reviewed with Nursing. - positive family meeting yesterday, both parents and Heaven feel she is improving and working toward discharge - suprapubic catheter changed per ID recommendations Pt was seen today along with weekend rounding psychiatrist, Dr. Oseguera. Pt states she is "feeling conflicted" as her stomach hurts, but she is hungry. Pt desires to eat food, but is unsure of her ability to tolerate it at this time. She states "I want to go home". Pt reports a positive meeting with her parents last evening and she feels she has made considerable progress. Pt reports the "voices are quieter" since increasing Risperdal. She feels that the voices are more easy to resist and feels she is better able to "tell them to shut up". Pt states she feels she will be able to continue to resist the voices at this level once she returns home. Pt is optimistic for discharge soon, but is understandable to the process and need for sustained improvement. She denies SI /HI, and visual hallucinations. (Cheryle Brody, JOC) Review of Systems Psych: denies symptoms other than stated above Constitutional: denied Cardiovascular: denied GI: nausea Neurologic: denied Remainder of 10 body systems also reviewed and denied other than noted above. (Cheryle Brody, JOC) Sleep Information Total Hours of Sleep: 5.50 (Cheryle Brody, JOC) Meal Information Percent of Breakfast Consumed: 0 Percent of Lunch Consumed: 10 Percent of Dinner Consumed: 50 (Cheryle Brody, DOMINGO-C) Mental Status Exam During interview pt is: alert and oriented, cooperative, other (lying in bed) Appearance: appropriately dressed (covered by multiple blankets), disheveled Eye contact is: fair Motor behavior is: no abnormal motor movements Speech: normal in rate, rhythm & volume Affect: euthymic Mood is: other ("cheery") Thought process: goal directed, clear, coherent Thought content: reality based without delusions Suicidal thought are: present, Plan: denied Homicidal thoughts are: denied Hallucinations: auditory (reduced in volume, "manageable"), denies visual Cognition: attention grossly intact, language grossly intact Intelligence estimated to be: average Insight: impaired Judgement: impaired (Cheryle Brody, WILLIAMS) Impression Pt continues to be unable to ambulate and therefore participate in programming while on the unit. Has had multiple medical consults yesterday due to diarrhea. Pt was seen by ID who recommended no need for ABX and replacement of suprapubic catheter which was done. C-diff returned negative and digni-shield is still in place as ongoing monitoring for resolution of diarrhea. Pt reports improvement in volume of the voices since increased dose of Risperdal. She is feeling optimistic for discharge and reports state parents are comfortable with her progress as well. Pt seems to have turned around after family meeting with her parents yesterday afternoon. Will need to ensure appropriate medical aftercare considering placement of wound vac and digni-shield while on the unit. Will consider discharge once medical aftercare has been confirmed and patient is able to show sustained improvement. (Cheryle Brody, WILLIAMS) Plan (1) Suicidal ideation Every 15 minute checks for safety. Encourage group attendance and participation , work on healthy coping skills and discharge safety plan. Review safety plan with parents, specifically ensuring no access to guns and plan to restrict her access to large amounts of pills given her history of multiple overdoses. She states her mother has already removed also chart objects from the home due to her ongoing urges to cut and suicidal thoughts to slit her wrists. 06/08/17 - SI ongoing with urges to cut wrist. Pt states she refuses to eat, questionable starvation versus tolerability issues as she reports frequent nausea with eating. 06/10 - Pt denies SI today and states she feels she is better able to control the voices now that they are at a lower volume. Pt appears much more cheerful and optimistic. She voices desire to consider discharge and appears to have resolved things with her parents during a family meeting yesterday. (2) Schizoaffective disorder, bipolar type -Coordinate care with outpatient psychiatric PA, Ольга Quinones, at [place]. -Continue home dose of risperidone 1 mg every morning and 2.5 mg daily at bedtime, benztropine 1 mg twice a day, lithium 450 mg every morning and 600 mg every afternoon, and venlafaxine XR 75 mg daily. Hold clonazepam for now, as the patient is sedated and slurring her speech after getting clonazepam and oxycodone in the emergency room, and indicates that she has been sedated at home as well and the clonazepam was being tapered off. -We will need to check a lithium trough, but the patient did not receive her medication in the ER, so we will wait until she has been placed back on the correct dose before ordering it. -Fasting lipid profile from 03/17/2017 was notable for elevated cholesterol 207 and elevated triglycerides 161. Hemoglobin A1c was 5.1, with an estimated average glucose of 100. 06/08/17 - Continue medications as above. Will assess patient's response to restarting lithium along with the discontinuation of clonazepam to assess level of anxiety and mood symptoms with prescribed medications. Pt given first dose of Amberley 600mg last PM and first AM dose of Eskalith 450mg this morning. Will need to check Amberley trough levels when appropriate. Pt appears much less sedated with discontinuation of clonazepam. 06/09 - Increase risperdal to 2 mg AM and 2.5 mg HS 06/10 - Continue medications as above. Pt reports decreased volume of voices since increased dose of Risperdal. She feels she is more able to resist them. Pt is optimistic for discharge, but is understanding that medical aftercare needs to be confirmed due to the placement of the wound vac and digni-shield while on the unit. Pt appears to have resolved issues with parents who are agreeable to discharge soon. Will review medical aftercare and assess for sustained improvement as we assess discharge in the near future. (3) Nonhealing nonsurgical wound with necrosis of muscle Wound care consult requested, OMERO reyna ordered. Continue oxycodone 5 mg twice a day when necessary while in the hospital, but monitor for oversedation as she is on numerous sedating medications. Medically necessary private room due to need for specialized mattress, wound VAC , and extent of medical care needed. 06/10 - will need to assess medical aftercare to ensure there is a plan in place to monitor wound vac once discharged. (4) GERD (gastroesophageal reflux disease) Continue home dose of Pepcid. (5) Hypothyroidism Continue home dose of levothyroxine. (6) Asthma Continue home dose of Advair, Singulair, and albuterol. (7) Diarrhea 06/09 - C-dff sent - Protect from skin breakdown 06/10 - C-diff negative - Digni-shield in place, ongoing monitoring for resolution of diarrhea (Cheryle Brody PA-C) Pt was seen for face to face examination with Cheryle Brody PA-C and I am in agreement with her assessment and plan as above. Pt demonstrating a quick flight to health and denying SI today. Tolerating increased risperdal well. Discharge planning in process but requires evidence of sustained resolution of SI. (Julio Oseguera MD) Discharge / Aftercare Planning Primary Care Physician: Name: Gela Boone MD Psychiatrist: Name: Abelardo Power Date of Appointment: Jun 19, 2017 Time of Appointment: 9:00 am Appointment Notes: [id number] [facility] [id number] Therapist: Name: Sandra Baker "[facility]" Date of Appointment: Jun 13, 2017 Time of Appointment: 2:00 pm Appointment Notes: [address] [facility] [id number] [place] Administrator: Name: Cheryle Lang PA-C) Visit Code E&M Code: 34082 (Cheryle Brody PA-C) Inventory Assets Strengths: Seeking help, supportive family, has housing, has outpatient providers Needs: Improved coping skills, increased support (Cheryle Brody PA-C) Risk Factors Assessment : Yes /single/: Yes Higher / Fall in social status: No Health problems: Yes Mental Health Diagnoses: Yes Substance use disorders: No Previous attempt: Yes Previous psychiatric stay: Yes Hopelessness: Yes Smoker: No (Cheryle Brody PA-C) Protective Factors Assessment Congregational beliefs: Yes : No Responsible for young children: No Employed: No Stable relationships: No Supportive family: Yes Good rapport with provider: Yes (Cheryle Brody PA-C) Data Vital Signs Last 24 Hrs: Date Time Temp Pulse Resp B/P (MAP) Pulse Ox O2 Delivery O2 Flow Rate FiO2 06/10/17 06:40 36.4 57 16 107/67 Meds Administered Last 24 Hrs: Meds Administered (Past 24Hrs) Medications (Trade) Dose Ordered Sig/Brenna Route Start Time Stop Time Status Last Admin Dose Admin Risperidone (Risperdal Tab) 2 mg QAM PO 06/10/17 09:00 07/10/17 08:59 06/10/17 08:35 2 MG Topiramate (Qudexy Xr) 100 mg BID PO 06/09/17 22:00 07/07/17 21:59 06/10/17 08:35 100 MG (Cheryle Brody PA-C)
--- NOTE | 2017-06-10 14:44 | DIAGNOSTIC IMAGING REPORT ---
CT HEAD WITHOUT CONTRAST (CT) CLINICAL HISTORY: Headache. Possible shunt malfunction. COMPARISON STUDY: 03/15/2017 TECHNIQUE: Axial CT of the brain is performed from the vertex to the skull base. IV contrast was not administered for this examination. A dose lowering technique was utilized adhering to the principles of ALARA. CT DOSE: 614.27 mGy.cm FINDINGS: No intra or extra-axial mass lesions are visualized. 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 There is a right frontal ventriculostomy catheter which appears to terminate in the region of the anterior horn the right lateral ventricle. The ventricular system remains decompressed. Prominent interhemispheric occipital sulci remain stable. There is no acute hemorrhage. There is persistent fullness the level the foramen magnum. A Chiari malformation cannot be excluded. A right occipital calvarial defect, is likely secondary to a prior shunt dianne hole. There is no evidence of acute sinusitis. IMPRESSION: 1. 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 Right frontal ventriculostomy catheter, unchanged in position. The ventricles remain decompressed. 3. No evidence of acute hemorrhage. No acute findings. Electronically signed by: Yair Morrison M.D. 06/10/2017 2:43 PM Dictated Date/Time: 06/10/2017 2:40 PM
[2017-06-10] MEDS: ACETAMINOPHEN 325 MG TAB PO PRN (16:27)
[2017-06-10] MEDS: LITHIUM CARBONATE 300 MG TAB PO SCH (17:26)
[2017-06-10] MEDS: RISPERIDONE 1 MG TAB PO SCH (21:19)
[2017-06-10] MEDS: MONTELUKAST SOD 10 MG TAB PO SCH (21:19)
[2017-06-11 06:57] VITALS: BP 119/76; PULSE 75; TEMP 36.8
[2017-06-11] MEDS: SUCRALFATE 1 GM/10 ML UDC PO SCH ×2 (07:49→11:51)
[2017-06-11] MEDS: LEVOTHYROXINE 75 MCG TAB PO SCH (07:49)
[2017-06-11] MEDS: BENZTROPINE MESYLATE 1 MG TAB PO SCH (08:47)
[2017-06-11] MEDS: VENLAFAXINE HCL XR 75 MG CAPXR PO SCH (08:47)
[2017-06-11] MEDS: FLUTICASONE/SALMETEROL (ADVAIR) 500/50 INH 14 PUFF INH SCH (08:47)
[2017-06-11] MEDS: LITHIUM CARBONATE 450 MG TABCR PO SCH (08:48)
[2017-06-11] MEDS: HYOSCYAMINE SULFATE 0.125 MG SL TAB PO SCH (08:49)
[2017-06-11] MEDS: FERROUS SULFATE 325 MG TAB PO SCH (08:49)
[2017-06-11] MEDS: POTASSIUM CHLORIDE 20 MEQ TABCR PO SCH (08:49)
[2017-06-11] MEDS: MULTIVITAMIN TAB PO SCH (08:49)
[2017-06-11] MEDS: PANTOprazole SOD 40 MG TAB PO SCH (08:50)
[2017-06-11] MEDS: FAMOTIDINE 20 MG TAB PO SCH (08:50)
[2017-06-11] MEDS: GABAPENTIN 300 MG CAP PO SCH (08:50)
[2017-06-11] MEDS: CYANOCOBALAMIN 500 MCG TAB (VIT B-12) PO SCH (08:51)
[2017-06-11] MEDS: RISPERIDONE 2 MG TAB PO SCH (08:51)
[2017-06-11] MEDS: TOPIRAMATE 100 MG PO SCH (08:51)
[2017-06-11] MEDS: hydrOXYzine HCL 25 MG TAB PO SCH (08:51)
[2017-06-11] MEDS: RIVAROXABAN 20 MG TAB PO SCH (08:52)
[2017-06-11] MEDS: CHOLECALCIFEROL 1000 INTER.UNIT TAB PO SCH (08:52)
[2017-06-11] MEDS: ACETAMINOPHEN 325 MG TAB PO PRN (10:43)
[2017-06-11] MEDS ORDERED: RSP2 PO (12:44)
--- NOTE | 2017-06-11 12:53 | Discharge Instructions ---
Discharge Information Report Includes Report will include the: Discharge Instructions & Summary Admission Admission Date / Time: Jun 07, 2017 at 12:15 Reason for Admission: Schizoeffective Disorder Discharge Discharge Diagnosis / Problem: hallucinations and SI Condition at Discharge: improved Discharge Goals Goal(s): Decrease discomfort, Specific goals Activity Recommendations Activity Limitations: resume your previous activity . Instructions / Follow-Up Instructions / Follow-Up . SPECIAL CARE INSTRUCTIONS: 1. Follow through with your scheduled aftercare appointments. If unable to keep an appointment, please call to reschedule. 2. Take your medication only as prescribed. Medication should not be changed or stopped without the approval of your doctor. In the event of worsening symptoms or concerns about side effects, contact your doctor immediately. 3. Utilize new healthy coping skills, anger management skills, and stress management skills learned during your hospitalization. Journal feelings and process them with a support person. Identify stressors or situations that may result in relapse, deterioration or inappropriate behaviors and develop a plan to deal with those issues. 4. If your coping skills are ineffective and you are in crisis, contact your outpatient providers for direction. If unable to reach your providers, please call the CAN HELP LINE AT or go to the closest Emergency Room. 5. Avoid alcohol and un-prescribed drugs. 6. You have been provided with the Mental Health Advance Directives Pamphlet for your review. AFTERCARE APPOINTMENTS: * Please call your insurance company prior to your scheduled appointment to confirm your aftercare providers are covered. Take your insurance information to your appointments. . Discharge / Aftercare Planning Primary Care Physician: Name: Gela Boone MD Psychiatrist: Name: Abelardo Power Date of Appointment: Jun 19, 2017 Time of Appointment: 9:00 am Appointment Notes: [address] [facility] [place] [address] Therapist: Name Of Therapist: Sandra Baker "[facility]" Date of Appointment: Jun 13, 2017 Time of Appointment: 2:00 pm Appointment Comments: [id number] [place] [id number] Capacity Planning Engineer: Name: Rosanne Specialist: Name: [facility] Date of Appointment: Jun 14, 2017 Time of Appointment: 1200 Other: Name of Appointment #1: [facility] . Please call to schedule follow-up at the wound clinic as we discussed Follow-Up Care Plan for Follow-Up Care: As above Current Hospital Diet Patient's current hospital diet: Regular Diet Discharge Diet Recommended Diet: Regular Diet Procedures Procedures Performed: Yes List Procedure(s) Performed: Head CT on 06/10/2017 showed no acute process Pending Studies Pending Studies at Discharge: No Medical Emergencies . Who to Call and When: Medical Emergencies: For questions or emergencies related to your hospital stay, please contact the Inpatient Behavioral Health Unit at [phone]. A accounts administrator is on-call 26/12 for the Behavioral Health Unit for emergencies At any time you feel your situation is an emergency, you may also call 911 immediately. . Non-Emergent Contact Non-Emergency issues call your: Primary Care Provider, Psychiatrist Advance Directives Do You Have an Existing Mental: No Existing Living Will: No Existing Power of Aircraft Pneudraulics Repairer: No Advance Directives Info Given: To Pt/S.O. Advance Directives Reason: Declines as Mental Health Visit. Discharge Summary Admission HPI Per the Admitting provider: The patient is known to us from multiple previous admissions to our unit and consultations when admitted medically. She was last on our unit in June 2016 for 2 days for depression and command auditory hallucinations. Her aripiprazole was increased to 12.5 mg daily, and she was discharged to the medical floor as she had a UTI requiring IV antibiotics. She was following with Dr. Goode and Sandra Baker for therapy. In the past year, she has had 9 medical admissions and has been seen by the psychiatry consultation service. She presented to the emergency room last evening reporting suicidal ideation with a plan to cut herself and command auditory hallucinations telling her not to eat. She has also been struggling with a nonhealing wound, is supposed to have a wound VAC placed and was on IV antibiotics, so initially could not be admitted to our behavioral health unit. ER staff were not able to secure placement to another psychiatric facility, and the emergency room psychiatric case managers met with her multiple times to try to devise a safety plan and discharge to the community, but she continued to report suicidal ideation and inability to contract for safety outside of the hospital. She said mood had worsened in the context of being "on bedrest" for 6 weeks, and being "isolated from the world." She stated that if she went home, she would "find the pulse in my wrist and cut deep enough so that I bleed out and ." Today she was assessed by Dr. Sauceda, who determined that she no longer needed IV antibiotics, so they were discontinued and her PICC line was pulled. She was also seen by the wound care nurse, who assessed her right thigh wound, and stated that it was stable and the periwound breakdown has resolved. The wound was cleaned and dressing changed this morning, and she recommended pressure redistribution mattress, every 2 turns and wound VAC replacement after debridement of right posterior leg ulcer. This physician spoke with the emergency room physician, and agreed that we could accept her on now that she is no longer requiring IV antibiotics. On my assessment today, she was seen with DOMINGO Black. She states she's been stressed by the family's recent move, the of her dog last February, thinking that her parents are fighting when they say they aren't and she is hallucinating it, and problems with her brother. She reports worsening AH of voices telling her to kill herself by finding the pulse in her wrist, and cutting as deep as she can. She says her therapist also thinks she is hallucinating in session, as she "thinks things happened, but then they didn't. " She says she thought her therapist told her her new dog could come with her to appointments, but she never actually said that. She has thought she heard her father tell her she has to find a new place to live, but her mother tells her that is not true. She also thinks that other people, even ones she doesn't know, are talking about her. She reports 11 voices, both male and female, which she has had for years, and although they decrease at times, they never go away completely. She notes once they went away for a whole day and "it freaked me out , there's nothing in my head, it scared me." She reports worsening mood and AH for several weeks, with suicidal thoughts and plans to cut her wrists or throat. She denies that she acted on these thoughts, but says it is only because she has been on bed rest for 3 weeks so hasn't had access to anything she could use to cut her wrists. She says Dr. Sauceda told her she can be out of bed for 3-5 hours a day. She reports mood was high during the summer, but around the time of her birthday in Feb. she became more depressed. She states the voices also tell her not to eat, and that if she is skinny, then she will be loved. She is eating less, and thinks she has lost weight, as she has gone down 2 sizes in 2 weeks, but doesn't know how much weight she's lost as she doesn't weigh herself. Sleep is variable, good at times, and decreased at times to 4 hours/night. She endorses anxiety with racing thoughts and shortness of breath, feels out of control, which occurs "all the time, I've been panicking every other second, like right now." She reports "panic attacks" where "I talk too much and I can't catch my breath." Breathing techniques and meditation are helpful. She doesn't know if her medications have been adjusted recently, saying her mother manages her meds. She saw her psychiatric PA and therapist yesterday and says they referred her here. She initially didn't want to come, as she didn't want to be away from her dog, but ultimately agreed as she didn't want to be involuntarily committed. She admits to ongoing urges cut, but hasn't acted on it as her parents removed all sharp objects. She restricts her oral intake in part as a way to harm herself, and because "it's the only thing in this world I can control." Her admission med rec includes oxycodone and clonazepam, but drug screen was negative for both of these substances. Review of the PDMP shows that she last filled a clonazepam prescription on 04/19/2017 for #30 0.5 mg tablets prescribed by Ольга Quinones. She states she has been taking it twice a day, and hasn't filled it in a while because she has been in the hospital. She says her mother gives her all of her meds, "I'm not allowed." She has filled several 3- 10 day supply prescriptions for hydrocodone and oxycodone, the last one on 05/19 for a 10 day supply (5 mg of oxycodone #60) from Dr. Gela Boone. She states she takes "oxy" at home, and tries to limit herself to one a day at bedtime, but sometimes takes more. She admits they make her sedated. She no longer has a case managers, as "I don't like, it's like adult daycare...my mom just does all that." When she is feeling well, she spends her time training her dog, doing an anxiety workbook, goes to the library or to lunch with her mother , drawing, and watching TV with her parents. She notes she recently switched from Dr. Goode to Ольга Quinones at the recommendation of her therapist, as she was sedated on her meds. She states she is being weaned off "anxiety meds," which she doesn't necessarily like, but says she understands why. Consultations Medical consultation performed by Dr. Moreno, infectious disease consultation by Dr. Sauceda, [facility] consultation Hospital Course (1) Suicidal ideation Every 15 minute checks for safety. Encourage group attendance and participation , work on healthy coping skills and discharge safety plan. Review safety plan with parents, specifically ensuring no access to guns and plan to restrict her access to large amounts of pills given her history of multiple overdoses. She states her mother has already removed also chart objects from the home due to her ongoing urges to cut and suicidal thoughts to slit her wrists. 06/08/17 - SI ongoing with urges to cut wrist. Pt states she refuses to eat, questionable starvation versus tolerability issues as she reports frequent nausea with eating. 06/10 - Pt denies SI today and states she feels she is better able to control the voices now that they are at a lower volume. Pt appears much more cheerful and optimistic. She voices desire to consider discharge and appears to have resolved things with her parents during a family meeting yesterday. 06/11 - Suicidal ideation remains resolved today. Able to convincingly contract for safety. Patient interviewed with mother at bedside who expresses comfortability with discharge today (2) Schizoaffective disorder, bipolar type -Coordinate care with outpatient psychiatric PA, Ольга Quinones, at [facility]. -Continue home dose of risperidone 1 mg every morning and 2.5 mg daily at bedtime, benztropine 1 mg twice a day, lithium 450 mg every morning and 600 mg every afternoon, and venlafaxine XR 75 mg daily. Hold clonazepam for now, as the patient is sedated and slurring her speech after getting clonazepam and oxycodone in the emergency room, and indicates that she has been sedated at home as well and the clonazepam was being tapered off. -We will need to check a lithium trough, but the patient did not receive her medication in the ER, so we will wait until she has been placed back on the correct dose before ordering it. -Fasting lipid profile from 03/17/2017 was notable for elevated cholesterol 207 and elevated triglycerides 161. Hemoglobin A1c was 5.1, with an estimated average glucose of 100. 06/08/17 - Continue medications as above. Will assess patient's response to restarting lithium along with the discontinuation of clonazepam to assess level of anxiety and mood symptoms with prescribed medications. Pt given first dose of [place] 600mg last PM and first AM dose of [place] 450mg this morning. Will need to check [place] trough levels when appropriate. Pt appears much less sedated with discontinuation of clonazepam. 06/09 - Increase risperdal to 2 mg AM and 2.5 mg HS 06/10 - Continue medications as above. Pt reports decreased volume of voices since increased dose of Risperdal. She feels she is more able to resist them. Pt is optimistic for discharge, but is understanding that medical aftercare needs to be confirmed due to the placement of the wound vac and digni-shield while on the unit. Pt appears to have resolved issues with parents who are agreeable to discharge soon. Will review medical aftercare and assess for sustained improvement as we assess discharge in the near future. 06/11 - Auditory hallucinations dramatically reduced today. Denies any concern for side effects and increased Risperdal. Expresses desire for discharge. 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 Continue oxycodone 5 mg twice a day when necessary while in the hospital, but monitor for oversedation as she is on numerous sedating medications. Medically necessary private room due to need for specialized mattress, wound VAC , and extent of medical care needed. 06/10 - will need to assess medical aftercare to ensure there is a plan in place to monitor wound vac once discharged. 06/11 - We were unable to make an appointment at the wound clinic as it is Monday but patient's mother expressed familiarity with the clinic and I am informed that the patient is an active patient there and mother will call tomorrow to schedule follow-up for the wound VAC. (4) GERD (gastroesophageal reflux disease) Continue home dose of Pepcid. (5) Hypothyroidism Continue home dose of levothyroxine. (6) Asthma Continue home dose of Advair, Singulair, and albuterol. (7) Diarrhea 06/09 - C-dff sent - Protect from skin breakdown 06/10 - C-diff negative - Digni-shield in place, ongoing monitoring for resolution of diarrhea 06/11 - Dignishield will be removed prior to discharge Risk Factors Assessment : Yes /single/: Yes Higher / Fall in social status: No Health problems: Yes Mental Health Diagnoses: Yes Substance use disorders: No Previous attempt: Yes Previous psychiatric stay: Yes Hopelessness: Yes Smoker: No Protective Factors Assessment Synagogue beliefs: Yes : No Responsible for young children: No Employed: No Stable relationships: No Supportive family: Yes Good rapport with provider: Yes Day of Discharge Assessment At time of discharge patient is denying any residual suicidal ideation. She endorses no thoughts of harm to herself or any other persons. She is tolerating dose escalation of Risperdal and discontinuation of clonazepam without difficulty and expresses desire to discharge to home. Mother interviewed at bedside who is in agreement with this plan as above. She is in NAD with a logical thought process and not demonstrating evidence of ongoing hallucinations. She describes mood as "great" and affect is cheerful but childlike. Laboratory Refer to printed laboratory reports Test 06/06/17 17:51 06/06/17 19:21 06/11/17 06:14 Urine Color YELLOW Urine Appearance CLEAR Urine pH 6.0 Urine Specific [place] 1.010 Urine Protein NEG Urine Glucose (UA) NEG Urine Ketones NEG Urine Occult Blood NEG Urine Nitrite POS Urine Bilirubin NEG Urine Urobilinogen NEG Urine Leukocyte Esterase SMALL Urine WBC (Auto) 5-10 Urine RBC (Auto) 0-4 Urine Hyaline Casts (Auto) 1-5 Urine Epithelial Cells (Auto) >30 Urine Bacteria (Auto) NEG Urine Test NEG Urine Opiates Screen NEG Urine Methadone, Qualitative NEG Urine Barbiturates NEG Urine Phencyclidine (PCP) Level NEG Ur Amphetamine/Methamphetamine NEG MDMA (Ecstasy) Screen NEG Urine Benzodiazepines Screen NEG Urine Cocaine Metabolite NEG Urine Marijuana (THC) NEG White Blood Count 8.12 Red Blood Count 3.78 Hemoglobin 11.5 Hematocrit 37.0 Mean Corpuscular Volume 97.9 Mean Corpuscular Hemoglobin 30.4 Mean Corpuscular Hemoglobin Concent 31.1 Platelet Count 270 Mean Platelet Volume 10.1 Neutrophils (%) (Auto) 59.4 Lymphocytes (%) (Auto) 25.6 Monocytes (%) (Auto) 7.1 Eosinophils (%) (Auto) 7.0 Basophils (%) (Auto) 0.4 Neutrophils # (Auto) 4.82 Lymphocytes # (Auto) 2.08 Monocytes # (Auto) 0.58 Eosinophils # (Auto) 0.57 Basophils # (Auto) 0.03 RDW Standard Deviation 58.4 RDW Coefficient of Variation 16.3 Immature Granulocyte % (Auto) 0.5 Immature Granulocyte # (Auto) 0.04 Sodium Level 140 Potassium Level 3.8 Chloride Level 110 Carbon Dioxide Level 24 Anion Gap 6.0 Blood Urea Nitrogen 10 Creatinine 0.48 Est Creatinine Clear Calc Drug Dose 142.2 Estimated GFR () > 150.0 Estimated GFR (Non- 131.6 BUN/Creatinine Ratio 20.7 Random Glucose 93 Calcium Level 8.8 Total Bilirubin 0.2 Direct Bilirubin < 0.1 Aspartate Amino Transferase (AST) 14 Alanine Aminotransferase (ALT) 16 Alkaline Phosphatase 123 Total Protein 6.4 Albumin 2.4 Thyroid Stimulating Hormone (TSH) 2.790 Salicylates Level < 1.7 Acetaminophen Level 4 [place] Level 0.9 Total Time Total Time Spent (min): Greater than 30 minutes Total Time Included: examination of the patient, discharge planning, medication reconciliation Tobacco Cessation at Discharge Smoking Status: Never Smoker FDA approved Prescription: non-smoker
== END 2017-06-11 14:00 | disposition home or self-care (01) | DRG 885 ==
LOC: C.EDB 16:53 → C.MHU 06-07 12:15
PROVIDERS: ADMIT Psychiatry & Neurology Psychiatry; ATTEND Psychiatry & Neurology Psychiatry
DX: F25.0 Schizoaffective disorder, bipolar type (principal); R45.851 Suicidal ideations; S71.101D Unspecified open wound, right thigh, subsequent encounter; J45.909 Unspecified asthma, uncomplicated; K21.9 Gastro-esophageal reflux disease without esophagitis; E03.9 Hypothyroidism, unspecified; R19.7 Diarrhea, unspecified; Q05.9 Spina bifida, unspecified; Z79.01 Long term (current) use of anticoagulants; Z79.899 Other long term (current) drug therapy; Z88.2 Allergy status to sulfonamides; Z91.040 Latex allergy status; Z88.1 Allergy status to other antibiotic agents; Z91.5 Personal history of self-harm; Z89.511 Acquired absence of right leg below knee; Z89.512 Acquired absence of left leg below knee; Z81.8 Family history of other mental and behavioral disorders; Z99.3 Dependence on wheelchair; X58.XXXD Exposure to other specified factors, subsequent encounter

== ENCOUNTER → 2017-06-06 | Outpatient (CLI) | payer BC, OTHER ==
[~2017-06-06] MED LIST changes: +LEVO75TA PO; +METR-162 PO; +RIVA1TAB4 PO; +RXC5 PO; +VENL37.593 PO
[2017-06-06 10:45] LABS: HEMATOCRIT 36.6 % (37-47); HEMOGLOBIN 11.2 g/dL (12.0-16.0); MEAN CELL VOLUME 99.2 fL (80-100); MEAN CORPUSCULAR HEMOGLOBIN 30.4 pg (25-34); MEAN CORPUSCULAR HGB CONC 30.6 g/dl (32-36); MEAN PLATELET VOLUME 10.3 fL (7.4-10.4); PLATELET COUNT 264 K/uL (130-400); RED CELL DISTRIBUTION WIDTH CV 16.1 % (11.5-14.5); RED CELL DISTRIBUTION WIDTH SD 58.4 fL (36.4-46.3); WHITE BLOOD COUNT 7.95 K/uL (4.8-10.8)
[2017-06-06 10:54] LABS: ALBUMIN 2.2 gm/dl (3.4-5.0); ALT/SGPT 17 U/L (12-78); AST/SGOT 18 U/L (15-37); BLOOD UREA NITROGEN 11 mg/dl (7-18); CALCIUM 8.5 mg/dl (8.5-10.1); CARBON DIOXIDE 24 mmol/L (21-32); CREATININE 0.58 mg/dl (0.60-1.20); GLUCOSE 126 mg/dl (70-99); POTASSIUM 3.7 mmol/L (3.5-5.1); SODIUM 140 mmol/L (136-145)
[2017-06-06 10:57] LABS: ALKALINE PHOSPHATASE 121 U/L (45-117); TOTAL PROTEIN 6.3 gm/dl (6.4-8.2)
[2017-06-06 11:09] LABS: BASO % 0.3 %; BASO ABS # 0.02 K/uL (0-0.2); EOS % 6.2 %; EOS ABS # 0.49 K/uL (0-0.5); IG# 0.01 K/uL (0.00-0.02); LYMPH % 16.6 %; LYMPH ABS # 1.32 K/uL (1.2-3.4); MONO % 4.8 %; MONO ABS # 0.38 K/uL (0.11-0.59); NEUT ABS # 5.73 K/uL (1.4-6.5)
== END | disposition home or self-care (01) ==
LOC: C.LABSPEC 10:26
PROVIDERS: ATTEND Internal Medicine Infectious Disease
DX: N39.0 Urinary tract infection, site not specified (principal)

== ENCOUNTER → 2017-06-26 | Outpatient (CLI) | payer BC, OTHER ==
[~2017-06-26] MED LIST changes: -CLON0.5T3 PO; -DAPT500I IV; -DOCU-105 PO; +DOCU-94 PO; -EFF/375 PO; +EFFSR75 PO; -FLUC200T4 PO; -FNTTP50 TD; -INDO1CAP34 PO; +MENTOIN TOP; -MGRSP NAE; -MRLP17X PO; +PANT40TA PO; -PANT40TA2 PO; +POLY335019 PO; +RISP2TAB22 PO; -RSP1 PO; +SENN-61 PO; +XPNINS NEB; -ZOLM1TAB3 PO; -[UNRECOGNIZED DRUG - CODE] IV; -[UNRECOGNIZED DRUG - CODE] PO
== END | disposition home or self-care (01) ==
LOC: C.LABSPEC 16:50
PROVIDERS: ATTEND Internal Medicine Infectious Disease
DX: N39.0 Urinary tract infection, site not specified (principal)

== ENCOUNTER → 2017-06-30 | Day surgery (SDC) | payer BC, OTHER ==
[~2017-06-30] VITALS: Ht 119.4 cm; Wt 107.7 kg
[~2017-06-30] MED LIST changes: +RISP3TAB12 PO; +TOBRAMYCIN SULF INJ 420 MG in DEXTROSE 5% 100ML 100 ML IV SCH
[2017-06-30 13:21] VITALS: BP 118/72; PULSE 90; TEMP 36.8; O2SAT 97; Ht 119.4 cm; Wt 107.7 kg
--- NOTE | 2017-07-07 07:59 | EDITING REQUIRED CODING QUERY ---
TREATMENT RENDERED WITHOUT A DIAGNOSIS To promote full compliance with coding requirements relating to patient care, physician participation is requested in all cases of clinical coder uncertainty. Please assist us with the question(s) below: Coding Question: The patient is receiving IV TOBRAMYCIN SULF., as noted in the ORDER HISTORY of the record. Please document the diagnosis that is being addressed by the medication/treatment. Provider Response: Urinary tract infection Thank you Jahaira Rossi
== END | disposition home or self-care (01) ==
LOC: C.MTU 12:50
PROVIDERS: ATTEND Internal Medicine Infectious Disease
DX: N39.0 Urinary tract infection, site not specified (principal)

== ENCOUNTER → 2017-07-01 | Outpatient (CLI) | payer BC, OTHER ==
[~2017-07-01] MED LIST changes: -RISP1TAB68 PO; -TOBRAMYCIN SULF INJ 420 MG in DEXTROSE 5% 100ML 100 ML IV SCH
[2017-07-01 16:32] LABS: BLOOD UREA NITROGEN 13 mg/dl (7-18); CALCIUM 8.9 mg/dl (8.5-10.1); CARBON DIOXIDE 25 mmol/L (21-32); CREATININE 0.73 mg/dl (0.60-1.20); GLUCOSE 120 mg/dl (70-99); POTASSIUM 3.2 mmol/L (3.5-5.1); SODIUM 139 mmol/L (136-145)
== END | disposition home or self-care (01) ==
LOC: C.LABSPEC 13:20
PROVIDERS: ATTEND Internal Medicine Infectious Disease
DX: N39.0 Urinary tract infection, site not specified (principal); Z88.0 Allergy status to penicillin; Z88.1 Allergy status to other antibiotic agents; Z88.8 Allergy status to other drugs, medicaments and biological substances; Z88.2 Allergy status to sulfonamides

== ENCOUNTER 2017-07-07 17:36 | Emergency (ER) | payer BC, OTHER ==
[2017-07-07 17:44] VITALS: TEMP 36.7
[2017-07-07 18:45] LABS: BASO % 0.4 %; BASO ABS # 0.03 K/uL (0-0.2); EOS % 6.4 %; HEMATOCRIT 36.5 % (37-47); HEMOGLOBIN 11.6 g/dL (12.0-16.0); IG# 0.01 K/uL (0.00-0.02); LYMPH ABS # 2.51 K/uL (1.2-3.4); MEAN CELL VOLUME 97.9 fL (80-100); MEAN CORPUSCULAR HEMOGLOBIN 31.1 pg (25-34); MEAN CORPUSCULAR HGB CONC 31.8 g/dl (32-36); MEAN PLATELET VOLUME 9.8 fL (7.4-10.4); MONO ABS # 0.55 K/uL (0.11-0.59); NEUT % 54.1 %; NEUT ABS # 4.25 K/uL (1.4-6.5); PLATELET COUNT 260 K/uL (130-400); RED CELL DISTRIBUTION WIDTH CV 14.3 % (11.5-14.5); RED CELL DISTRIBUTION WIDTH SD 51.7 fL (36.4-46.3); WHITE BLOOD COUNT 7.85 K/uL (4.8-10.8)
[2017-07-07] MEDS ORDERED: ONDANSETRON INJ 2 MG/ML 2 ML VIAL IV STA (18:48)
[2017-07-07] MEDS ORDERED: SODIUM CHLORIDE 0.9% 500ML 500 ML IV STA (18:48)
[2017-07-07 18:53] LABS: ALBUMIN 2.8 gm/dl (3.4-5.0); ALT/SGPT 22 U/L (12-78); BLOOD UREA NITROGEN 10 mg/dl (7-18); CALCIUM 8.7 mg/dl (8.5-10.1); CARBON DIOXIDE 23 mmol/L (21-32); GLUCOSE 98 mg/dl (70-99); POTASSIUM 3.3 mmol/L (3.5-5.1); SODIUM 139 mmol/L (136-145)
[2017-07-07 18:56] LABS: ALKALINE PHOSPHATASE 97 U/L (45-117); AST/SGOT 10 U/L (15-37); TOTAL PROTEIN 6.6 gm/dl (6.4-8.2)
--- NOTE | 2017-07-07 18:57 | EMERGENCY ROOM VISIT NOTE ---
History First contact with patient: 18:04 Chief Complaint: ABDOMINAL PAIN Stated Complaint: BLADDER PAIN,ABD PAIN,HEADACHE Nursing Triage Summary: pt state she had uti for week and on abx. c/o continued pain. pt gave urine culture on . states increased pain and sent to ER. History of Present Illness The patient is a 32 year old female who presents to the Emergency Room with complaints of severe lower abdominal pain radiating to her right flank. The patient has had a UTI for 2 weeks. She is being treated with tobramycin. The tobramycin was stopped 3 days ago. Her symptoms returned 2 days ago. She describes as a sharp, stabbing sensation that is constant. The patient has a history of a chronic indwelling suprapubic catheter. She is also had nausea with no vomiting. She has felt feverish. She took her temperature at home. It was normal. The patient has been taking oxycodone and Zofran for her symptoms with minimal relief. She is followed by infectious disease. She reportedly had a repeat urinalysis 2 days ago. 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 (14) Osteomyelitis (15) Pulmonary embolism (16) Shunt placement with revision x8 (17) Spina bifida (18) UTI (urinary tract infection) Surgical Problems: (1) S/P BKA (below knee amputation) bilateral Family History Cancer Diabetes mellitus Lung disease Social History Smoking Status: Never Smoker Alcohol Use: none Drug Use: none Marital Status: single Housing Status: lives with family Occupation Status: disabled Current/Historical Medications Scheduled Benztropine Mesylate (Benztropine Mesylate), 1 MG PO BID Cholecalciferol (Vitamin D), 2,000 INTER.UNIT PO BID Cyanocobalamin (Vitamin B-12), 500 MCG PO DAILY Docusate Sodium (Colace), 1 CAP PO BID Famotidine (Pepcid), 40 MG PO DAILY Ferrous Sulfate (Ferrous Sulfate), 325 MG PO BID Fluticasone Prop/Salmeterol (Advair Diskus 500/50 60 Dose), 1 PUFF INH BID Gabapentin (Gabapentin), 300 MG PO BID Hydroxyzine HCl (Hydroxyzine Pamoate), 50 MG PO HS Hydroxyzine HCl (Hydroxyzine HCl), 25 MG PO QAM Hyoscyamine Sulfate (Levsin), 0.125 MG PO TID Levothyroxine Sodium (Levothyroxine Sodium), 75 MCG PO QAM Linaclotide (Linzess), 290 MCG PO QAM Rex Carbonate (Rex Carbonate), 600 MG PO QPM Rex Carbonate Er (Lithobid Ext Rel), 450 MG PO QAM Metronidazole (Metronidazole), 500 MG PO TID Montelukast Sod (Montelukast Sodium), 10 MG PO HS Multiple Vitamin (Multivitamin), 1 TAB PO DAILY Nystatin (Topical) (Nystop), 1 APPLN TOP UD Pantoprazole (Protonix), 40 MG PO DAILY Potassium Chloride (Potassium Chloride ER), 20 MEQ PO BID Probiotic Product (Probiotic), 1 CAP PO TID Risperidone (Risperdal), 2 MG PO in the morning Risperidone (Risperdal), 3 MG PO HS Rivaroxaban (Xarelto), 20 MG PO DAILY Senna (Senokot), 1 TAB PO BID Sennosides (Senna Lax), 17.2 MG PO DAILY Sucralfate (Carafate), 10 ML PO QID Topiramate (Qudexy Xr), 1 TAB PO BID Venlafaxine Hcl (Effexor Extended Rel), 75 MG PO DAILY Wound Dressings (Hydrofera Blue Foam Dress), 1 EA EXT UD Scheduled PRN Albuterol Sulfate (Proair Respiclick), 2 PUFFS INH TID PRN for SOB/Wheezing Levalbuterol (Levalbuterol HCl), 3 ML NEB Q4 PRN for Shortness of Breath Meclizine Hcl (Meclizine Hcl), 25 MG PO TID PRN for Dizziness or Vertigo Menthol-Zinc Oxide (Calmoseptine), 1 DOSE TOP DAILY PRN for PRN Ondansetron (Ondansetron Hcl), 4 MG IV Q6H PRN for Nausea Ondasetron Odt (Zofran Odt), 4 MG SL Q8 PRN for Nausea Oxycodone HCl (Oxycodone HCl), 5-10 MG PO Q8 PRN for Pain Polyethylene Glycol 3350 (Miralax), 17 GM PO DAILY PRN for Constipation Physical Exam Vital Signs Date Time Temp Pulse Resp B/P (MAP) Pulse Ox O2 Delivery O2 Flow Rate FiO2 07/07/17 20:57 85 20 110/52 99 Room Air 07/07/17 19:04 81 20 94/44 97 Room Air 07/07/17 17:44 36.7 90 20 133/86 98 Room Air Physical Exam GENERAL: 32-year-old female, obese, in no acute distress, in no acute distress, nondiaphoretic, well-developed well-nourished. SKIN: The skin was without rashes, erythema, edema, or bruising. There is no tenting of the skin. Capillary reflex less than 2 seconds. HEAD: Normocephalic atraumatic. MOUTH: Mucous membranes slightly dry NECK: Supple without nuchal rigidity. No lymphadenopathy. Cervical spine is nontender. No JVD. HEART: Regular rate and rhythm without murmurs gallops or rubs. LUNGS: Clear to auscultation bilaterally without wheezes, rales or rhonchi. No accessory muscle use. ABDOMEN: Positive bowel sounds x 4.Soft, mild tenderness in the suprapubic region., without organomegaly. No guarding or rebound tenderness. Right-sided CVA tenderness noted. MUSCULOSKELETAL: Bilateral BKA noted. Wound VAC in place in the posterior right thigh. NEURO: Patient was alert and oriented to person place and time. Medical Decision & Procedures ER Provider Diagnostic Interpretation: Retroperitoneal ultrasound IMPRESSION: 1. Limited examination. Grossly normal though minimally atrophic right kidney by size. No hydronephrosis. Electronically signed by: Chris Blacno M.D. 07/07/2017 9:48 PM Dictated Date/Time: 07/07/2017 9:45 PM The status of this report is Signed. Draft = Not yet reviewed or approved by Radiologist. Signed = Reviewed and approved by Radiologist. <AttendingPhy></AttendingPhy> <FamilyPhy>Gela Boone M.D.</FamilyPhy > <PrimaryPhy>Paolo, Gela D., M.D.</PrimaryPhy> <UnitNumber>[id number]</ UnitNumber> <VisitNumber>[id number]</VisitNumber> Laboratory Results 07/07/17 18:28 Red Blood Count 3.73, Mean Corpuscular Volume 97.9, Mean Corpuscular Hemoglobin 31.1, Mean Corpuscular Hemoglobin Concent 31.8, Mean Platelet Volume 9.8, Neutrophils (%) (Auto) 54.1, Lymphocytes (%) (Auto) 32.0, Monocytes (%) (Auto) 7.0, Eosinophils (%) (Auto) 6.4, Basophils (%) (Auto) 0.4, Neutrophils # (Auto) 4.25, Lymphocytes # (Auto) 2.51, Monocytes # (Auto) 0.55, Eosinophils # (Auto) 0.50, Basophils # (Auto) 0.03 07/07/17 18:28 Test 07/07/17 18:00 07/07/17 18:28 Urine Color YELLOW Urine Appearance CLEAR (CLEAR) Urine pH 7.0 (4.5-7.5) Urine Specific [place] 1.008 (1.000-1.030) Urine Protein NEG (NEG) Urine Glucose (UA) NEG (NEG) Urine Ketones NEG (NEG) Urine Occult Blood 2+ (NEG) Urine Nitrite NEG (NEG) Urine Bilirubin NEG (NEG) Urine Urobilinogen NEG (NEG) Urine Leukocyte Esterase MODERATE (NEG) Urine WBC (Auto) 10-30 /hpf (0-5) Urine RBC (Auto) 5-10 /hpf (0-4) Urine Hyaline Casts (Auto) 1-5 /lpf (0-5) Urine Epithelial Cells (Auto) >30 /lpf (0-5) Urine Bacteria (Auto) NEG (NEG) Urine Test NEG (NEG) White Blood Count 7.85 K/uL (4.8-10.8) Red Blood Count 3.73 M/uL (4.2-5.4) Hemoglobin 11.6 g/dL (12.0-16.0) Hematocrit 36.5 % (37-47) Mean Corpuscular Volume 97.9 fL (80-100) Mean Corpuscular Hemoglobin 31.1 pg (25-34) Mean Corpuscular Hemoglobin Concent 31.8 g/dl (32-36) Platelet Count 260 K/uL (130-400) Mean Platelet Volume 9.8 fL (7.4-10.4) Neutrophils (%) (Auto) 54.1 % Lymphocytes (%) (Auto) 32.0 % Monocytes (%) (Auto) 7.0 % Eosinophils (%) (Auto) 6.4 % Basophils (%) (Auto) 0.4 % Neutrophils # (Auto) 4.25 K/uL (1.4-6.5) Lymphocytes # (Auto) 2.51 K/uL (1.2-3.4) Monocytes # (Auto) 0.55 K/uL (0.11-0.59) Eosinophils # (Auto) 0.50 K/uL (0-0.5) Basophils # (Auto) 0.03 K/uL (0-0.2) RDW Standard Deviation 51.7 fL (36.4-46.3) RDW Coefficient of Variation 14.3 % (11.5-14.5) Immature Granulocyte % (Auto) 0.1 % Immature Granulocyte # (Auto) 0.01 K/uL (0.00-0.02) Anion Gap 7.0 mmol/L (3-11) Estimated GFR () 141.8 Estimated GFR (Non- 122.3 BUN/Creatinine Ratio 17.0 (10-20) Calcium Level 8.7 mg/dl (8.5-10.1) Total Bilirubin 0.2 mg/dl (0.2-1) Aspartate Amino Transf (AST/SGOT) 10 U/L (15-37) Alanine Aminotransferase (ALT/SGPT) 22 U/L (12-78) Alkaline Phosphatase 97 U/L (45-117) Total Protein 6.6 gm/dl (6.4-8.2) Albumin 2.8 gm/dl (3.4-5.0) Globulin 3.8 gm/dl (2.5-4.0) Albumin/Globulin Ratio 0.7 (0.9-2) Medications Administered Medications (Trade) Dose Ordered Sig/Brenna Route Start Time Stop Time Status Last Admin Dose Admin Hydromorphone HCl (Dilaudid Inj) 1 mg ONE ONCE IV 07/07/17 19:00 07/07/17 19:01 DC 07/07/17 18:54 1 MG Ondansetron HCl (Zofran Inj) 4 mg NOW STAT IV 07/07/17 18:48 07/07/17 18:49 DC 07/07/17 18:54 4 MG Sodium Chloride 500 ml @ 999 mls/hr Q31M STAT IV 07/07/17 18:48 07/07/17 19:18 DC 07/07/17 18:48 999 MLS/HR Ketorolac Tromethamine (Toradol Inj) 30 mg NOW STAT IV 07/07/17 19:51 07/07/17 19:52 DC 07/07/17 19:56 30 MG Hydromorphone HCl (Dilaudid Inj) 1 mg ONE ONCE IV 07/07/17 22:00 07/07/17 22:01 DC 07/07/17 22:09 1 MG Phenazopyridine HCl (Pyridium Tab) 200 mg NOW STAT PO 07/07/17 22:01 07/07/17 22:02 DC 07/07/17 22:12 200 MG ED Course Patient was seen and examined Vital signs including blood pressure were reviewed medications list was verified with patient Labs were obtained, her PICC was accessed The patient was given Dilaudid and Zofran for her symptoms. She was hydrated with 500 mL normal saline. The patient required an additional dose of Dilaudid and Toradol for her symptoms. She was also ordered Pyridium 200 mg I thoroughly discussed the results of the workup with the patient and the patient's mother. They voiced understanding. She is complaining of a migraine headache. She was given 1 dose of Benadryl 12.5 g IV and Compazine 5 mg IV. She was also given a home pack of oxycodone. I reviewed discharge instructions the patient. They voiced understanding and had no further questions. Medical Decision Differential diagnosis: UTI, pyelonephritis, sepsis, chronic pain This patient is a 32-year-old female with a history of disability and chronic suprapubic catheter that presents with suprapubic pain and right flank pain. On exam, she was uncomfortable in appearance. Her workup reveals no leukocytosis. She is afebrile. Renal function is intact. Her urinalysis shows 10-30 white blood cells. Given her chronic suprapubic catheter, this could be colonization. A urine culture was sent. A retroperitoneal ultrasound was performed. No signs of pyelonephritis were found. I believe she is stable to be discharged home. It should be noted that I have a very high suspicion of drug seeking behavior. The patient was encouraged to follow-up with her primary care physician for further pain control in addition to her infectious disease specialist. The patient and the patient's mother were comfortable with this plan. She will return with any worsening symptoms. This chart was completed in part utilizing [employer] Speech Voice Recognition software. Attempts were made to minimize the grammatical errors, random word insertions, pronoun errors and incomplete sentences. Any formal questions or concerns about the content, text or information contained within the body of this dictation should be directly addressed to the provider for clarification. Medication Reconcilliation Current Medication List: was personally reviewed by me Blood Pressure Screening Patient's blood pressure: Normal blood pressure Impression Primary Impression: Abdominal pain Departure Information Dispostion Home / Self-Care Condition GOOD Referrals Gela Boone M.D. (PCP) Jennifer. Charlton D.O. Patient Instructions My [facility] Additional Instructions You have been evaluated in the emergency department for lower abdominal pain and flank pain. There are no convincing signs of an infection. A urine culture was sent and should be back within 48-72 hours. Oxycodone Immediate Release (OxyIR) 5mg: Take 1-2 pills every four hours for pain. Avoid alcohol, operating machinery or dangerous equipment, working on ladders or roofs, DRIVING, or situations where being under the influence may be dangerous. It is recommended to use an [id number] stool softener such as Colace, 100mg twice daily while taking this medication to avoid constipation. Continue other medications as prescribed It was a pleasure participating in your care You have been examined and treated today on an emergency basis only. This is not a substitute for, or an effort to provide, complete comprehensive medical care. It is impossible to recognize and treat all injuries or illnesses in a single emergency department visit. It is therefore important that you follow up closely with [facility], your PCP, and/or your specialist(s). Call as soon as possible for an appointment. Do not hesitate to return for worsening symptoms such as fever
[2017-07-07] MEDS ORDERED: HYDROmorphone INJ 1 MG/ML SYR IV ONE ×2 (19:00→22:00)
[2017-07-07] MEDS ORDERED: KETOROLAC TROMETHAMINE 30 MG/ML VIAL IV STA (19:51)
--- NOTE | 2017-07-07 21:49 | DIAGNOSTIC IMAGING REPORT ---
(RENAL)RETROPERITON COMP CLINICAL HISTORY: 32 years-old Female presenting with R flank pain ? pyleo. TECHNIQUE: Real-time grayscale and limited color Doppler ultrasound imaging of the kidneys and bladder was performed. COMPARISON: 10/24/[address] from 04/19/2016. FINDINGS: Right kidney: Normal echogenicity. Right kidney measures 8.7 cm. No hydronephrosis. No convincing evidence of calculus or mass. Normal perfusion. Left kidney: Extremely limited sonographic window. Nonvisualization of the left kidney. Bladder: Suprapubic catheter is in place. Other: None. IMPRESSION: 1. Limited examination. Grossly normal though minimally atrophic right kidney by size. No hydronephrosis. Electronically signed by: Chris Blanco M.D. 07/07/2017 9:48 PM Dictated Date/Time: 07/07/2017 9:45 PM
[2017-07-07] MEDS ORDERED: PHENAZOPYRIDINE HCL 200 MG TAB PO STA (22:01)
[2017-07-07] MEDS ORDERED: PROCHLORPERAZINE 5 MG/ML 2 ML VIAL IV STA (22:19)
[2017-07-07] MEDS ORDERED: DiphenhydrAMINE HCL 50 MG/ML VIAL IV STA (22:19)
[2017-07-07] MEDS ORDERED: OXYCODONE IR HOME PACK PO ONE (22:30)
[2017-07-07 22:50] VITALS: BP 118/70; PULSE 88; O2SAT 98
== END 2017-07-07 22:52 | disposition home or self-care (01) ==
LOC: C.EDB 17:37 → C.EDC 22:52
DX: R10.30 Lower abdominal pain, unspecified (principal); F41.9 Anxiety disorder, unspecified; J45.909 Unspecified asthma, uncomplicated; K21.9 Gastro-esophageal reflux disease without esophagitis; K31.84 Gastroparesis; E03.9 Hypothyroidism, unspecified; G43.909 Migraine, unspecified, not intractable, without status migrainosus; Z86.14 Personal history of Methicillin resistant Staphylococcus aureus infection; Z86.711 Personal history of pulmonary embolism; Q05.9 Spina bifida, unspecified; Z87.440 Personal history of urinary (tract) infections; Z89.512 Acquired absence of left leg below knee; Z89.511 Acquired absence of right leg below knee; Z80.9 Family history of malignant neoplasm, unspecified; Z83.3 Family history of diabetes mellitus; Z83.6 Family history of other diseases of the respiratory system; Z79.01 Long term (current) use of anticoagulants; Z79.899 Other long term (current) drug therapy

== ENCOUNTER → 2017-07-14 | Outpatient (CLI) | payer BC, OTHER ==
[~2017-07-14] MED LIST changes: +CLON0.5T3 PO; +DAPT500I IV; +DOCU-105 PO; +EFF/375 PO; +FLUC200T4 PO; +FNTTP50 TD; +GABA-1219 PO; -GABA1CAP4 PO; +INDO1CAP34 PO; +LEVO75TA PO; +METR-162 PO; +MGRSP NAE; +MRLP17X PO; +PANT40TA2 PO; +RISP1TAB68 PO; +RIVA1TAB4 PO; +RSP1 PO; +RSP2 PO; +RXC5 PO; +VENL37.593 PO; +ZOLM1TAB3 PO; +[UNRECOGNIZED DRUG - CODE] IV; +[UNRECOGNIZED DRUG - CODE] PO
== END | disposition home or self-care (01) ==
LOC: C.LABSPEC 12:06
PROVIDERS: ATTEND Internal Medicine Infectious Disease
DX: N39.0 Urinary tract infection, site not specified (principal)

== ENCOUNTER 2017-07-18 14:13 | Inpatient (IN) | payer BC, OTHER ==
[~2017-07-18] VITALS: Ht 119.4 cm; Wt 107.0 kg
[~2017-07-18 14:13] MED LIST changes: -ALBU18002 INH; -ATR25 PO; -BENZ-88 PO; -CLON0.5T3 PO; -CRFL PO; -DAPT500I IV; -DOCU-105 PO; -EFF/375 PO; -FAMO40TA6 PO; -FERR1TAB62 PO; -FLUC200T4 PO; -FNTTP50 TD; -GABA-1219 PO; -HYOS1TAB PO; -INDO1CAP34 PO; -LEVO75TA PO; -LEVO75TA5 PO; -LINA1CAP2 PO; -LITH1TAB PO; -LITH600C PO; -MENTOIN TOP; -METR-162 PO; -MGRSP NAE; -MISCCAP80 PO; -MRLP17X PO; -MTR500 PO; -MULTTAB58 PO; -NYST100010 TOP; -ONDA4TAB10 SL; -OXYC-609 PO; -PANT40TA2 PO; -POTA-65 PO; -RISP1TAB68 PO; -RISP2TAB22 PO; -RIVA1TAB4 PO; -RSP1 PO; -RSP2 PO; -RXC5 PO; -SENN1TAB80 PO; -SNG10 PO; -VENL37.593 PO; -VST25HP PO; -VTMB12 PO; -XPNINS NEB; -XRL20 PO; -ZOLM1TAB3 PO; -[UNRECOGNIZED DRUG - CODE] IV; -[UNRECOGNIZED DRUG - CODE] PO
[2017-07-18] MEDS ORDERED: RISP2TAB22 PO ×2 (14:48)
[2017-07-18] MEDS ORDERED: ATR25 PO ×2 (14:58)
[2017-07-18] MEDS ORDERED: VTMB12 PO ×2 (15:08)
--- NOTE | 2017-07-18 15:12 | DIAGNOSTIC IMAGING REPORT ---
CHEST ONE VIEW PORTABLE HISTORY: 32 years-old Female eval for pna acute cough COMPARISON: Chest radiograph 04/24/2017 TECHNIQUE: Portable AP view of the chest FINDINGS: Cardiac silhouette is upper limits of normal in size. Right subclavian Diaxij-p-Whev catheter is unchanged with distal tip in the region of the right atrium. Coiled catheter device projecting over the right neck and right chest is again seen suggesting a ventricular shunt which is also unchanged. There is no pneumothorax or pleural effusion. Linear subsegmental right greater than left bibasilar opacities are noted with mild hypoinflation. The bones appear grossly intact. IMPRESSION: Mild subsegmental bibasilar atelectasis without acute process. The above report was generated using voice recognition software. It may contain grammatical, syntax or spelling errors. Electronically signed by: Bob Martino M.D. 07/18/2017 3:10 PM Dictated Date/Time: 07/18/2017 3:06 PM
[2017-07-18] MEDS ORDERED: RSP2 PO ×2 (15:48)
[2017-07-18] MEDS ORDERED: PANT40TA2 PO ×2 (15:48)
[2017-07-18] MEDS ORDERED: ZFRI4 IV (15:58)
[2017-07-18] MEDS ORDERED: GABA-1219 PO ×2 (16:40)
[2017-07-18] MEDS ORDERED: HYOS1TAB PO ×2 (16:40)
[2017-07-18] MEDS ORDERED: LINA1CAP2 PO ×2 (16:40)
[2017-07-18] MEDS ORDERED: SNG10 PO ×2 (16:58)
[2017-07-18] MEDS ORDERED: LITH1TAB PO ×2 (16:58)
[2017-07-18 17:23] LABS: HEMATOCRIT 38.7 % (37-47); HEMOGLOBIN 12.4 g/dL (12.0-16.0); MEAN CELL VOLUME 95.3 fL (80-100); MEAN CORPUSCULAR HEMOGLOBIN 30.5 pg (25-34); MEAN PLATELET VOLUME 9.8 fL (7.4-10.4); PLATELET COUNT 311 K/uL (130-400); RED CELL DISTRIBUTION WIDTH SD 48.5 fL (36.4-46.3); WHITE BLOOD COUNT 8.87 K/uL (4.8-10.8)
[2017-07-18] MEDS ORDERED: ONDA4TAB10 SL ×2 (17:26)
[2017-07-18] MEDS ORDERED: FERR1TAB62 PO ×2 (17:26)
[2017-07-18 17:32] LABS: INR 1.2 (0.9-1.1); PTT PATIENT 24.9 SECONDS (21.0-31.0)
[2017-07-18 17:44] LABS: ALBUMIN 3.1 gm/dl (3.4-5.0); ALT/SGPT 19 U/L (12-78); BLOOD UREA NITROGEN 12 mg/dl (7-18); CALCIUM 8.8 mg/dl (8.5-10.1); CARBON DIOXIDE 19 mmol/L (21-32); CREATININE 0.61 mg/dl (0.60-1.20); GLUCOSE 110 mg/dl (70-99); POTASSIUM 3.1 mmol/L (3.5-5.1); SODIUM 139 mmol/L (136-145)
[2017-07-18 17:47] LABS: ALKALINE PHOSPHATASE 100 U/L (45-117); AST/SGOT 7 U/L (15-37)
[2017-07-18 17:58] LABS: BASO % 0.6 %; BASO ABS # 0.05 K/uL (0-0.2); EOS % 3.2 %; EOS ABS # 0.28 K/uL (0-0.5); IG# 0.02 K/uL (0.00-0.02); LYMPH ABS # 2.04 K/uL (1.2-3.4); MONO % 7.4 %; MONO ABS # 0.66 K/uL (0.11-0.59); NEUT % 65.6 %; NEUT ABS # 5.82 K/uL (1.4-6.5)
[2017-07-18] MEDS ORDERED: MULTTAB58 PO ×2 (18:07)
[2017-07-18] MEDS ORDERED: MENTOIN TOP ×2 (18:13)
[2017-07-18] MEDS ORDERED: XPNINS NEB ×2 (18:14)
--- NOTE | 2017-07-18 18:21 | EMERGENCY ROOM VISIT NOTE ---
History Report prepared by James: Edu Villarreal Under the Supervision of: Dr. George Cheng M.D. First contact with patient: 14:30 Chief Complaint: WOUND INFECTION Stated Complaint: WOUND INFECTION, BLADDER PAIN WITH BLEEDING Nursing Triage Summary: Right thigh wound "very smelly and hurts like crazy". Possible UTI as well. History of Present Illness The patient is a 32 year old female who presents to the Emergency Room with complaints of a worsening wound infection beginning five months ago (March 2017). The patient localizes the wound to her posterior right thigh. She states that her pain increased a few weeks ago. She has noticed a "strong smell" as well. The patient spoke with her infectious disease Dr. about her symptoms and was told to present to the ED for admission to the hospital for IV antibiotics. She notes that she has had urinary symptoms as well and had a urinalysis with her DrMike recently, but has not heard her results. The patient was on Daptomycin two weeks ago for a UTI. She is not currently on any antibiotics. She also complains of nausea. The patient had a PICC line removed last week. She denies fevers, vomiting, or cough. She states "I never get fevers when I get sick anymore". She states that when she feels ill she gets nausea and a loss of appetite. Source of History: patient Onset: Five months ago Position: leg (right posterior thigh) Quality: other (wound infection) Timing: worsening Associated Symptoms: + nausea, + urinary symptoms, No fevers, No cough, No vomiting Review of Systems See HPI for pertinent positives & negatives. A total of 10 systems reviewed and were otherwise negative. 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 (14) Osteomyelitis (15) Pulmonary embolism (16) Shunt placement with revision x8 (17) Spina bifida (18) UTI (urinary tract infection) Surgical Problems: (1) S/P BKA (below knee amputation) bilateral Family History Cancer Diabetes mellitus Lung disease Social History Smoking Status: Never Smoker Alcohol Use: none Drug Use: none Marital Status: single Housing Status: lives with family Occupation Status: disabled Current/Historical Medications Scheduled Benztropine Mesylate (Benztropine Mesylate), 1 MG PO BID Cholecalciferol (Vitamin D), 2,000 INTER.UNIT PO BID Cyanocobalamin (Vitamin B-12), 500 MCG PO DAILY Docusate Sodium (Colace), 100 MG PO BID Famotidine (Pepcid), 40 MG PO DAILY Ferrous Sulfate (Ferrous Sulfate), 325 MG PO BID Fluticasone Prop/Salmeterol (Advair Diskus 500/50 60 Dose), 1 PUFF INH BID Gabapentin (Gabapentin), 300 MG PO BID Hydroxyzine HCl (Hydroxyzine Pamoate), 50 MG PO HS Hydroxyzine HCl (Hydroxyzine HCl), 25 MG PO QAM Hyoscyamine Sulfate (Levsin), 0.125 MG PO TID Levothyroxine Sodium (Levothyroxine Sodium), 75 MCG PO QAM Linaclotide (Linzess), 290 MCG PO QAM [place] Carbonate ([place] Carbonate), 600 MG PO QPM [place] Carbonate Er (Lithobid Ext Rel), 450 MG PO QAM Montelukast Sod (Montelukast Sodium), 10 MG PO HS Multiple Vitamin (Multivitamin), 1 TAB PO DAILY Nystatin (Topical) (Nystop), 1 APPLN TOP UD Pantoprazole (Pantoprazole Sodium), 40 MG PO DAILY Potassium Chloride (Potassium Chloride ER), 20 MEQ PO BID Probiotic Product (Probiotic), 1 CAP PO TID Risperidone (Risperdal), 2 MG PO QAM Risperidone (Risperidone), 3 MG PO HS Rivaroxaban (Xarelto), 20 MG PO DAILY Senna (Senokot), 8.6 MG PO BID Sennosides (Senna Lax), 17.2 MG PO DAILY Sucralfate (Carafate), 10 ML PO QID Topiramate (Qudexy Xr), 100 MG PO BID Venlafaxine Hcl (Effexor Extended Rel), 75 MG PO DAILY Wound Dressings (Hydrofera Blue Foam Dress), 1 EA EXT UD Scheduled PRN Albuterol Sulfate (Proair Respiclick), 2 PUFFS INH TID PRN for SOB/Wheezing Levalbuterol (Levalbuterol HCl), 3 ML NEB Q4H PRN for Shortness of Breath Meclizine Hcl (Meclizine Hcl), 25 MG PO TID PRN for Dizziness or Vertigo Menthol-Zinc Oxide (Calmoseptine), 1 APPLN TOP DAILY PRN for Skin Irritation Ondansetron (Ondansetron Hcl), 4 MG IV Q6H PRN for Nausea Ondasetron Odt (Zofran Odt), 4 MG SL Q8 PRN for Nausea Oxycodone HCl (Oxycodone HCl), 5-10 MG PO Q8 PRN for Pain Polyethylene Glycol 3350 (Miralax), 17 GM PO DAILY PRN for Constipation Allergies Coded Allergies: Adhesives (Verified Allergy, Intermediate, TAPE- HIVES, 06/30/17) Ceftriaxone (Verified Allergy, Intermediate, rash, 06/30/17) Chlorhexidine (Verified Allergy, Intermediate, RASH, 06/30/17) Ciprofloxacin (Verified Allergy, Intermediate, hives, 06/30/17) Imipenem (Verified Allergy, Intermediate, PT REPORTS ITCHING, 06/30/17) Latex (Verified Allergy, Intermediate, hives, 06/30/17) Levofloxacin (Verified Allergy, Intermediate, rash, 06/30/17) Linezolid (Verified Allergy, Intermediate, rash, 06/30/17) Piperacillin (Verified Allergy, Intermediate, SEVERE RASH, HIVES, 06/30/17) Tazobactam (Verified Allergy, Intermediate, SEVERE RASH, HIVES, 06/30/17) Vancomycin (Verified Allergy, Intermediate, rash, 06/30/17) Tobramycin (Verified Allergy, Mild, MILD RASH ON ARM, RED FACE, 06/30/17) IMPROVED AFTER BENADRYL, TAKING REST OF DOSE Amikacin (Verified Allergy, Unknown, PER DR ROBINS,RXN WAS TO ZOSYN NOT AMKrash;hives, 06/30/17) Sulfamethoxazole w/Trimethoprim (Verified Allergy, Unknown, Hives, 06/30/17 ) Can be pretreated with 10mg Zytrec 45 min prior to admin Physical Exam Vital Signs Date Time Temp Pulse Resp B/P (MAP) Pulse Ox O2 Delivery O2 Flow Rate FiO2 07/18/17 16:55 73 18 122/70 100 Room Air 07/18/17 15:26 80 07/18/17 15:00 88 15 124/77 98 Room Air 07/18/17 14:25 36.8 97 20 132/73 99 Room Air Physical Exam Constitutional: Vital signs reviewed. Eyes: Pupils are equal round reactive to light. Conjunctiva are noninjected. ENT: Pharynx is clear without erythema or exudate. Mucous membranes are moist. Neck supple without meningeal signs. Respiratory: Clear to auscultation bilaterally. Breath sounds are equal bilaterally. Cardiovascular: Regular rate and rhythm. No rubs or gallops. GI: Soft, nondistended and nontender. Bowel sounds are present. Musculoskeletal: Bilateral lower extremity amputations. There is a wound VAC in the right thigh with surrounding erythema and tenderness. Integumentary: No cyanosis. Neurological: The patient is awake and alert. Wheelchair-bound. Psychiatric: Normal affect. Medical Decision & Procedures ER Provider Diagnostic Interpretation: Radiology results as stated below per my review and the radiologist's interpretation: CHEST ONE VIEW PORTABLE FINDINGS: Cardiac silhouette is upper limits of normal in size. Right subclavian Kkhsmz-[id number]-Ufto catheter is unchanged with distal tip in the region of the right atrium. Coiled catheter device projecting over the right neck and right chest is again seen suggesting a ventricular shunt which is also unchanged. There is no pneumothorax or pleural effusion. Linear subsegmental right greater than left bibasilar opacities are noted with mild hypoinflation. The bones appear grossly intact. IMPRESSION: Mild subsegmental bibasilar atelectasis without acute process. The above report was generated using voice recognition software. It may contain grammatical, syntax or spelling errors. Electronically signed by: Bob Martino M.D. 07/18/2017 3:10 PM Laboratory Results 07/18/17 16:55 Red Blood Count 4.06, Mean Corpuscular Volume 95.3, Mean Corpuscular Hemoglobin 30.5, Mean Corpuscular Hemoglobin Concent 32.0, Mean Platelet Volume 9.8, Neutrophils (%) (Auto) 65.6, Lymphocytes (%) (Auto) 23.0, Monocytes (%) (Auto) 7.4, Eosinophils (%) (Auto) 3.2, Basophils (%) (Auto) 0.6, Neutrophils # (Auto) 5.82, Lymphocytes # (Auto) 2.04, Monocytes # (Auto) 0.66, Eosinophils # (Auto) 0.28, Basophils # (Auto) 0.05 07/18/17 16:55 Test 07/18/17 16:25 07/18/17 16:55 Urine Color YELLOW Urine Appearance CLOUDY (CLEAR) Urine pH 7.5 (4.5-7.5) Urine Specific [place] 1.006 (1.000-1.030) Urine Protein NEG (NEG) Urine Glucose (UA) NEG (NEG) Urine Ketones NEG (NEG) Urine Occult Blood TRACE (NEG) Urine Nitrite NEG (NEG) Urine Bilirubin NEG (NEG) Urine Urobilinogen NEG (NEG) Urine Leukocyte Esterase LARGE (NEG) Urine WBC (Auto) >30 /hpf (0-5) Urine RBC (Auto) 0-4 /hpf (0-4) Urine Hyaline Casts (Auto) 5-10 /lpf (0-5) Urine Epithelial Cells (Auto) >30 /lpf (0-5) Urine Bacteria (Auto) 2+ (NEG) White Blood Count 8.87 K/uL (4.8-10.8) Red Blood Count 4.06 M/uL (4.2-5.4) Hemoglobin 12.4 g/dL (12.0-16.0) Hematocrit 38.7 % (37-47) Mean Corpuscular Volume 95.3 fL (80-100) Mean Corpuscular Hemoglobin 30.5 pg (25-34) Mean Corpuscular Hemoglobin Concent 32.0 g/dl (32-36) Platelet Count 311 K/uL (130-400) Mean Platelet Volume 9.8 fL (7.4-10.4) Neutrophils (%) (Auto) 65.6 % Lymphocytes (%) (Auto) 23.0 % Monocytes (%) (Auto) 7.4 % Eosinophils (%) (Auto) 3.2 % Basophils (%) (Auto) 0.6 % Neutrophils # (Auto) 5.82 K/uL (1.4-6.5) Lymphocytes # (Auto) 2.04 K/uL (1.2-3.4) Monocytes # (Auto) 0.66 K/uL (0.11-0.59) Eosinophils # (Auto) 0.28 K/uL (0-0.5) Basophils # (Auto) 0.05 K/uL (0-0.2) RDW Standard Deviation 48.5 fL (36.4-46.3) RDW Coefficient of Variation 14.0 % (11.5-14.5) Immature Granulocyte % (Auto) 0.2 % Immature Granulocyte # (Auto) 0.02 K/uL (0.00-0.02) Prothrombin Time 12.4 SECONDS (9.0-12.0) Prothromb Time International Ratio 1.2 (0.9-1.1) Activated Partial Thromboplast Time 24.9 SECONDS (21.0-31.0) Partial Thromboplastin Ratio 1.0 Anion Gap 9.0 mmol/L (3-11) Est Creatinine Clear Calc Drug Dose 111.1 ml/min Estimated GFR () 141.0 Estimated GFR (Non- 121.7 BUN/Creatinine Ratio 19.6 (10-20) Calcium Level 8.8 mg/dl (8.5-10.1) Total Bilirubin 0.2 mg/dl (0.2-1) Direct Bilirubin < 0.1 mg/dl (0-0.2) Aspartate Amino Transf (AST/SGOT) 7 U/L (15-37) Alanine Aminotransferase (ALT/SGPT) 19 U/L (12-78) Alkaline Phosphatase 100 U/L (45-117) Total Protein 7.0 gm/dl (6.4-8.2) Albumin 3.1 gm/dl (3.4-5.0) Laboratory results as reviewed by me. ED Course 1434: The patient was evaluated in room B6. A complete history and physical exam was performed. 1520: The patient and family are refusing an IV. The patient states that she would like a PICC line placed instead. 1552: Upon reevaluation, the patient is resting comfortably. I discussed jewellight 's findings with her and her family. They verbalized agreement of the treatment plan. The patient will be evaluated for further management. Medical Decision This is a 32-year-old female with a history of osteomyelitis presenting for admission for IV antibiotics. She called her infectious disease doctor and was told to come here for hospitalization. I did perform a limited focused review of portions of the patient's old chart on the electronic medical record. The patient was here for abdominal pain on July 07. She had an retroperitoneal ultrasound which was unremarkable. She was diagnosed with abdominal pain. Clinician was concerned with drug seeking behavior. Note by Dr. Sauceda from July 07 said patient is on IV Tobramycin for UTI. Urine culture from July 14 shows multi-resistant pseudomonas. I did evaluate the patient as noted above. IV access was established. I did order and personally review the patient's urinalysis as described above. I did order and review the patient's blood work as noted in the electronic medical record. She does have hypokalemia. I did discuss case with Dr. Sauceda who stated that he wanted her admitted to the hospital so that she can receive IV antibiotics for her multidrug-resistant Pseudomonas. This was based on a urine culture drawn yesterday. I did discuss this with the patient and her mother. I did discuss this with the hospitalist and business case analyst. Medication Reconcilliation Current Medication List: was personally reviewed by me Blood Pressure Screening Patient's blood pressure: Elevated blood pressure Blood pressure disposition: Referred to PCP Consults Time Called: 1545 Consulting Physician: Dr. Fritz - [facility] Hospitalist Returned Call: [address] Fritz of [facility]. We discussed the patient and her results. The patient will be further evaluated by [facility]. Additional Consults: Time Called: 1538 Consulted Physician: Dr. Sourav Sauceda - Infectious Disease Returned Call: 1542 Additional Comments: I spoke with Dr. Sauceda of Infectious Disease. He would like the patient to be admitted to the hospital for Zobuxa treatment due to resistant pseudomonas in her urine. Impression Primary Impression: UTI (urinary tract infection) Additional Impressions: Infection due to highly antibiotic-resistant Pseudomonas Hypokalemia Scribe Attestation The scribe's documentation has been prepared under my direct and personally reviewed by me in its entirety. I confirm that the note above accurately reflects all work, treatment, procedures, and medical decision making performed by me. Departure Information Dispostion Being Evaluated By Hospitalist Referrals Gela Boone M.D. (PCP) Patient Instructions My [facility] Problem Qualifiers Primary Impression: UTI (urinary tract infection) Urinary tract infection type: catheter-associated UTI Indwelling urinary catheter type: unspecified Encounter type: subsequent encounter Qualified Codes: T83.511D - Infection and inflammatory reaction due to indwelling urethral catheter, subsequent encounter; N39.0 - Urinary tract infection, site not specified
[2017-07-18] MEDS ORDERED: LEVO75TA5 PO ×2 (18:25)
[2017-07-18] MEDS ORDERED: OXYC-609 PO ×2 (18:25)
[2017-07-18] MEDS ORDERED: CRFL PO ×2 (18:25)
[2017-07-18] MEDS ORDERED: MTR500 PO (18:25)
[2017-07-18] MEDS ORDERED: POTA-65 PO (18:25)
[2017-07-18] MEDS ORDERED: FAMO40TA6 PO ×2 (18:25)
[2017-07-18] MEDS ORDERED: ALUMINUM/MAGNESIUM/SIMETH (MAALOX MAX) 30 ML UDC PO PRN (18:30)
[2017-07-18] MEDS ORDERED: SENN1TAB80 PO ×2 (18:30)
[2017-07-18] MEDS ORDERED: NON-FORMULARY MEDICATION SCH (18:30)
[2017-07-18] MEDS ORDERED: ONDANSETRON INJ 2 MG/ML 2 ML VIAL IV PRN (18:30)
[2017-07-18] MEDS ORDERED: ACETAMINOPHEN 325 MG TAB PO PRN (18:30)
[2017-07-18] MEDS ORDERED: MAGNESIUM HYDROXIDE SUSP 30 ML UDC PO PRN (18:30)
[2017-07-18] MEDS ORDERED: POLYETHYLENE (MIRALAX) 17 GM PACK PO PRN ×2 (18:30→19:15)
[2017-07-18] MEDS ORDERED: ZOLPIDEM TARTRATE 5 MG TAB PO PRN ×2 (18:30)
[2017-07-18] MEDS ORDERED: XRL20 PO ×2 (18:35)
[2017-07-18] MEDS ORDERED: VST25HP PO ×2 (18:40)
--- NOTE | 2017-07-18 19:02 | History and Physical ---
History & Physical Date & Time of Service: Jul 18, 2017 at 18:34 Chief Complaint: Wound Infection, Bladder Pain With Bleeding Primary Care Physician: Gela Boone M.D. History of Present Illness Source: patient, family, hospital records 32 year old female with spina bifida currently wheelchair-bound, morbid obesity , suprapubic catheter with recurrent UTI, history of DVT on Xarelto, bipolar d/ o and hypothyroidism. she has been having recurrent resistant infections and recently had a traumatic wound to right leg s/p debridement. Patient said that recently she has been having some occasional blood clots in urine coming through the suprapubic catheter. Also she noticed her urine to have very bad smell and change in color. She also reported that she had very bad smell and her right thigh wound that was noticed while they were changing on her wound VAC. Urine culture was ordered as an outpatient grew multidrug resistant Pseudomonas UTI she was sent from Dr. Hawk office for IV abx, Also her right thigh wound is possibly infected. Denies any fever or chills, denies any change in mental status. But she stated that usually when she gets UTIs she does not get any other symptoms rather than what she has now. Past Medical/Surgical History Medical Problems: (1) Anxiety Status: Chronic (2) Asthma Status: Chronic (3) Gastroparesis Status: Chronic (4) GERD (gastroesophageal reflux disease) Status: Chronic (5) Hydrocephalus Status: Chronic (6) MRSA (methicillin resistant Staphylococcus aureus) Status: Resolved (7) Osteomyelitis Status: Resolved (8) Spina bifida Permanent Comment: Status: Chronic Family History Cancer Diabetes mellitus Lung disease Social History Smoking Status: Never Smoker Drug Use: none Marital Status: single Housing status: lives with family Occupational Status: disabled Immunizations History of Influenza Vaccine: Unknown History of Tetanus Vaccine?: Unknown History of Pneumococcal: Unknown History of Hepatitis B Vaccine: Unknown 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 Type of MDRO: MRSA, other Allergies Coded Allergies: Adhesives (Verified Allergy, Intermediate, TAPE- HIVES, 06/30/17) Ceftriaxone (Verified Allergy, Intermediate, rash, 07/18/17) Has tolerated cefepime and Zerbaxa Chlorhexidine (Verified Allergy, Intermediate, RASH, 06/30/17) Ciprofloxacin (Verified Allergy, Intermediate, hives, 06/30/17) Imipenem (Verified Allergy, Intermediate, PT REPORTS ITCHING, 06/30/17) Latex (Verified Allergy, Intermediate, hives, 06/30/17) Levofloxacin (Verified Allergy, Intermediate, rash, 06/30/17) Linezolid (Verified Allergy, Intermediate, rash, 06/30/17) Piperacillin (Verified Allergy, Intermediate, SEVERE RASH, HIVES, 06/30/17) Tazobactam (Verified Allergy, Intermediate, SEVERE RASH, HIVES, 06/30/17) Vancomycin (Verified Allergy, Intermediate, rash, 06/30/17) Tobramycin (Verified Allergy, Mild, MILD RASH ON ARM, RED FACE, 06/30/17) IMPROVED AFTER BENADRYL, TAKING REST OF DOSE Amikacin (Verified Allergy, Unknown, PER DR ROBINS,RXN WAS TO ZOSYN NOT AMKrash;hives, 06/30/17) Sulfamethoxazole w/Trimethoprim (Verified Allergy, Unknown, Hives, 06/30/17 ) Can be pretreated with 10mg Zytrec 45 min prior to admin Home Medications Scheduled Benztropine Mesylate (Benztropine Mesylate), 1 MG PO BID Cholecalciferol (Vitamin D), 2,000 INTER.UNIT PO BID Cyanocobalamin (Vitamin B-12), 500 MCG PO DAILY Docusate Sodium (Colace), 100 MG PO BID Famotidine (Pepcid), 40 MG PO DAILY Ferrous Sulfate (Ferrous Sulfate), 325 MG PO BID Fluticasone Prop/Salmeterol (Advair Diskus 500/50 60 Dose), 1 PUFF INH BID Gabapentin (Gabapentin), 300 MG PO BID Hydroxyzine HCl (Hydroxyzine Pamoate), 50 MG PO HS Hydroxyzine HCl (Hydroxyzine HCl), 25 MG PO QAM Hyoscyamine Sulfate (Levsin), 0.125 MG PO TID Levothyroxine Sodium (Levothyroxine Sodium), 75 MCG PO QAM Linaclotide (Linzess), 290 MCG PO QAM Nixon Carbonate (Nixon Carbonate), 600 MG PO QPM Nixon Carbonate Er (Lithobid Ext Rel), 450 MG PO QAM Montelukast Sod (Montelukast Sodium), 10 MG PO HS Multiple Vitamin (Multivitamin), 1 TAB PO DAILY Nystatin (Topical) (Nystop), 1 APPLN TOP UD Pantoprazole (Pantoprazole Sodium), 40 MG PO DAILY Potassium Chloride (Potassium Chloride ER), 20 MEQ PO BID Probiotic Product (Probiotic), 1 CAP PO TID Risperidone (Risperdal), 2 MG PO QAM Risperidone (Risperidone), 3 MG PO HS Rivaroxaban (Xarelto), 20 MG PO DAILY Senna (Senokot), 8.6 MG PO BID Sennosides (Senna Lax), 17.2 MG PO DAILY Sucralfate (Carafate), 10 ML PO QID Topiramate (Qudexy Xr), 100 MG PO BID Venlafaxine Hcl (Effexor Extended Rel), 75 MG PO DAILY Wound Dressings (Hydrofera Blue Foam Dress), 1 EA EXT UD Scheduled PRN Albuterol Sulfate (Proair Respiclick), 2 PUFFS INH TID PRN for SOB/Wheezing Levalbuterol (Levalbuterol HCl), 3 ML NEB Q4H PRN for Shortness of Breath Meclizine Hcl (Meclizine Hcl), 25 MG PO TID PRN for Dizziness or Vertigo Menthol-Zinc Oxide (Calmoseptine), 1 APPLN TOP DAILY PRN for Skin Irritation Ondansetron (Ondansetron Hcl), 4 MG IV Q6H PRN for Nausea Ondasetron Odt (Zofran Odt), 4 MG SL Q8 PRN for Nausea Oxycodone HCl (Oxycodone HCl), 5-10 MG PO Q8 PRN for Pain Polyethylene Glycol 3350 (Miralax), 17 GM PO DAILY PRN for Constipation Review of Systems Constitutional: No fever, No chills, No sweats, No weight loss, No weakness, No fatigue, No problem reported Eyes: No worsening of vision, No eye pain, No redness, No discharge, No diplopia, No problem reported ENT: No hearing loss, No unusual epistaxis, No nasal symptoms, No sore throat, No tinnitus, No dental problems, No trouble swallowing, No problem reported Respiratory: No cough, No sputum, No wheezing, No shortness of breath, No dyspnea on exertion, No dyspnea at rest, No hemoptysis, No problem reported Cardiovascular: No chest pain, No orthopnea, No PND, No edema, No claudication , No palpitations, No problem reported Abdomen: No pain, No nausea, No vomiting, No diarrhea, No constipation, No GI bleeding, No problem reported Musculoskeletal: No joint pain, No muscle pain, No swelling, No calf pain, No problem reported Genitourinary - Female: + problem reported (urine has bad smell) Neurologic: No memory loss, No paralysis, No weakness, No numbness/tingling, No vertigo, No balance problems, No problem reported Psychiatric: No depression symptoms, No anhedonism, No anxiety, No insomnia, No substance abuse, No problem reported Endocrine: No fatigue, No excessive thirst, No excessive urination, No problem reported Hematologic / Lymphatic: No abnormal bleeding/bruising, No clotting problems, No swollen lymph nodes, No night sweats, No problem reported Integumentary: No rash, No itch, No new/changing skin lesions, No color change , No bleeding, No problem reported Allergic / Immunologic: No environmental allergies, No seasonal allergies, No pet sensitivities, No food allergies, No hives, No frequent infections, No poor healing, No prolonged convalescence, No problem reported Physical Exam Vital Signs Date Time Temp Pulse Resp B/P (MAP) Pulse Ox O2 Delivery O2 Flow Rate FiO2 07/18/17 18:17 80 18 107/89 99 Room Air 07/18/17 16:55 73 18 122/70 100 Room Air 07/18/17 15:26 80 07/18/17 15:00 88 15 124/77 98 Room Air 07/18/17 14:25 36.8 97 20 132/73 99 Room Air General Appearance: WD/WN, + obese Head: normocephalic, atraumatic Eyes: normal inspection, EOMI ENT: normal ENT inspection, hearing grossly normal Neck: supple Respiratory/Chest: chest non-tender, lungs clear, normal breath sounds, no respiratory distress, no accessory muscle use Cardiovascular: regular rate, rhythm, no edema, no gallop, no JVD, no murmur Abdomen/GI: normal bowel sounds, non tender, soft, no organomegaly, no pulsatile mass Genitourinary - Female: + pertinent finding (suprapubic cath has some erythema around it, Candidal intertrigo is noticed) Back: normal inspection, no CVA tenderness, no muscle spasm Extremities/Musculoskelatal: normal inspection, no calf tenderness, + pertinent finding (right thigh has a wound vac, erythema around the wound vac is noticed) Neurologic/Psych: micro paleontologist II-XII nml as tested, no motor/sensory deficits, alert, normal mood/affect, oriented x 3, + pertinent finding (lower ext weakness) Skin: normal color, warm/dry, no rash Diagnostics Laboratory Results Results Past 24 Hours Test 07/18/17 16:25 07/18/17 16:55 Range/Units Urine Color YELLOW Urine Appearance CLOUDY CLEAR Urine pH 7.5 4.5-7.5 Urine Specific [place] 1.006 1.000-1.030 Urine Protein NEG NEG Urine Glucose (UA) NEG NEG Urine Ketones NEG NEG Urine Occult Blood TRACE NEG Urine Nitrite NEG NEG Urine Bilirubin NEG NEG Urine Urobilinogen NEG NEG Urine Leukocyte Esterase LARGE NEG Urine WBC (Auto) >30 0-5 /hpf Urine RBC (Auto) 0-4 0-4 /hpf Urine Hyaline Casts (Auto) 5-10 0-5 /lpf Urine Epithelial Cells (Auto) >30 0-5 /lpf Urine Bacteria (Auto) 2+ NEG White Blood Count 8.87 4.8-10.8 K/uL Red Blood Count 4.06 4.2-5.4 M/uL Hemoglobin 12.4 12.0-16.0 g/dL Hematocrit 38.7 37-47 % Mean Corpuscular Volume 95.3 80-100 fL Mean Corpuscular Hemoglobin 30.5 25-34 pg Mean Corpuscular Hemoglobin Concent 32.0 32-36 g/dl Platelet Count 311 130-400 K/uL Mean Platelet Volume 9.8 7.4-10.4 fL Neutrophils (%) (Auto) 65.6 % Lymphocytes (%) (Auto) 23.0 % Monocytes (%) (Auto) 7.4 % Eosinophils (%) (Auto) 3.2 % Basophils (%) (Auto) 0.6 % Neutrophils # (Auto) 5.82 1.4-6.5 K/uL Lymphocytes # (Auto) 2.04 1.2-3.4 K/uL Monocytes # (Auto) 0.66 0.11-0.59 K/uL Eosinophils # (Auto) 0.28 0-0.5 K/uL Basophils # (Auto) 0.05 0-0.2 K/uL RDW Standard Deviation 48.5 36.4-46.3 fL RDW Coefficient of Variation 14.0 11.5-14.5 % Immature Granulocyte % (Auto) 0.2 % Immature Granulocyte # (Auto) 0.02 0.00-0.02 K/uL Prothrombin Time 12.4 9.0-12.0 SECONDS Prothromb Time International Ratio 1.2 0.9-1.1 Activated Partial Thromboplast Time 24.9 21.0-31.0 SECONDS Partial Thromboplastin Ratio 1.0 Sodium Level 139 136-145 mmol/L Potassium Level 3.1 3.5-5.1 mmol/L Chloride Level 111 98-107 mmol/L Carbon Dioxide Level 19 21-32 mmol/L Anion Gap 9.0 3-11 mmol/L Blood Urea Nitrogen 12 7-18 mg/dl Creatinine 0.61 0.60-1.20 mg/dl Est Creatinine Clear Calc Drug Dose 111.1 ml/min Estimated GFR () 141.0 Estimated GFR (Non- 121.7 BUN/Creatinine Ratio 19.6 10-20 Random Glucose 110 70-99 mg/dl Calcium Level 8.8 8.5-10.1 mg/dl Total Bilirubin 0.2 0.2-1 mg/dl Direct Bilirubin < 0.1 0-0.2 mg/dl Aspartate Amino Transf (AST/SGOT) 7 15-37 U/L Alanine Aminotransferase (ALT/SGPT) 19 12-78 U/L Alkaline Phosphatase 100 45-117 U/L Total Protein 7.0 6.4-8.2 gm/dl Albumin 3.1 3.4-5.0 gm/dl Microbiology Results 07/18/17 Blood Culture, Received Pending 07/18/17 Blood Culture, Received Pending Impression Assessment and Plan 32 year old female with spina bifida currently wheelchair-bound, morbid obesity , suprapubic catheter with recurrent UTI, history of DVT on Xarelto, bipolar d/ o and hypothyroidism. she has been having recurrent resistant infections and recently had a traumatic wound to right leg s/p debridement. she was sent from Dr. Hawk office for IV abx, outpatient urine cultures grew multidrug resistant Pseudomonas UTI Also her right thigh wound is possibly infected. Assessment Complicated UTI likely related to suprapubic catheter, present on admission Infected Traumatic wound in her right thigh status post previous debridement, currently has a wound VAC, questionable recurrent infection Spina bifida wheelchair-bound Candidal intertrigo is noticed under her abdominal Morbid obesity Chronic urinary retention secondary to spina bifida status post suprapubic catheter Hypothyroidism Bipolar disorder GERD Asthma / stable Plan Patient was sent from Dr. hawk office to receive Zerbaxa IV for complicated pseudomonal UTI as per outpatient cultures Consult Dr. Sauceda Obtain blood cultures. Urine culture Start patient on lactobacillus Patient also complained of foul smell in her right thigh wound that didn't exist before, she noticed that while they're changing her wound VAC, order wound care consult with wound cultures with next VAC change, will leave the decision to cover potential MRSA and her right thigh wound with broad-spectrum antibiotics up to Dr. Sauceda Continue all her home medications, including pain meds, mood stabilizers, PPI and Xarelto No DVT prophylaxis required as patient will be on Xarelto Nystatin powder on her skin creases Resuscitation Status FULL RESUSCITATION VTE Prophylaxis VTE Risk Assessment Done? Y/N: Yes Risk Level: Moderate Given or contraindicated: Other Anticoagulation
[2017-07-18] MEDS ORDERED: WOUND DRESSINGS EXT SCH (19:15)
[2017-07-18] MEDS ORDERED: MENTHOL-ZINC OXIDE 360 APPLN/120 GM TUBE EXT PRN (19:15)
[2017-07-18] MEDS ORDERED: ALBUTEROL HFA 8 GM INHALER INH PRN (19:15)
[2017-07-18] MEDS ORDERED: LEVALBUTEROL 0.63MG/3 ML NEB INH PRN (19:15)
[2017-07-18] MEDS ORDERED: MISCCAP80 PO ×2 (20:28)
[2017-07-18] MEDS ORDERED: NYST100010 TOP ×2 (20:28)
[2017-07-18 21:30] VITALS: BP 99/66; PULSE 88; TEMP 36.4; BMI 75.1
[2017-07-18] MEDS: OXYCODONE HCL IR 5 MG TAB (IMMEDIATE RELEASE) PO PRN (21:56)
[2017-07-18] MEDS: SUCRALFATE 1 GM/10 ML UDC PO SCH (21:57)
[2017-07-18] MEDS: NYSTATIN POWDER 15GM BTL EXT SCH (21:57)
[2017-07-18] MEDS: FLUTICASONE/SALMETEROL (ADVAIR) 500/50 INH 14 PUFF INH SCH (21:57)
[2017-07-18] MEDS: BENZTROPINE MESYLATE 1 MG TAB PO SCH (21:58)
[2017-07-18] MEDS: VENLAFAXINE HCL XR 75 MG CAPXR PO SCH (21:59)
[2017-07-18] MEDS: FERROUS GLUCONATE 324 MG TAB PO SCH (22:00)
[2017-07-18] MEDS: HYOSCYAMINE SULFATE 0.125 MG SL TAB PO SCH (22:02)
[2017-07-18] MEDS: GABAPENTIN 300 MG CAP PO SCH (22:03)
[2017-07-18] MEDS: TOPIRAMATE 100 MG PO SCH (22:04)
[2017-07-18] MEDS: RISPERIDONE 1 MG TAB PO SCH (22:04)
[2017-07-18] MEDS: DOCUSATE SODIUM 100 MG CAP PO SCH (22:05)
[2017-07-18] MEDS: SENNA 8.6 MG TAB PO SCH (22:05)
[2017-07-18] MEDS: MONTELUKAST SOD 10 MG TAB PO SCH (22:06)
[2017-07-18] MEDS: CHOLECALCIFEROL 1000 INTER.UNIT TAB PO SCH (22:07)
[2017-07-18] MEDS: hydrOXYzine HCL 25 MG TAB PO SCH (22:08)
[2017-07-18] MEDS: TAZOBACTAM IV SCH (22:21)
[2017-07-18] MEDS: CEFTOLOZANE IV SCH (22:21)
[2017-07-18] MEDS: DEXTROSE 5% IV SCH (22:21)
[2017-07-18] MEDS: POTASSIUM CHLORIDE 20 MEQ TABCR PO SCH (22:26)
[2017-07-18] MEDS: LITHIUM CARBONATE 300 MG TAB PO SCH (22:26)
[2017-07-18] MEDS: LACTOBACILLUS ACIDOPHILUS (FLORANEX) TAB PO SCH (22:27)
[2017-07-18] MEDS ORDERED: BENZ-88 PO ×2 (22:29)
[2017-07-18] MEDS ORDERED: LITH600C PO ×2 (22:29)
[2017-07-18] MEDS ORDERED: ALBU18002 INH ×2 (22:29)
[2017-07-18] MEDS ORDERED: DiphenhydrAMINE HCL 50 MG/ML VIAL IV ONE (23:45)
[2017-07-19] MEDS ORDERED: HYDROmorphone INJ 0.5 MG/0.5 ML SYR IV STA (00:06)
[2017-07-19 00:57] VITALS: BP 109/67; PULSE 87; TEMP 36.8; O2SAT 94
[2017-07-19] MEDS: CETIRIZINE HCL 10 MG TAB PO SCH (05:39)
[2017-07-19] MEDS: LEVOTHYROXINE 75 MCG TAB PO SCH (05:39)
[2017-07-19 07:32] VITALS: BP 113/75; PULSE 92; TEMP 36.8; O2SAT 96
[2017-07-19] MEDS: CEFTOLOZANE IV SCH ×2 (08:37→16:31)
[2017-07-19] MEDS: DEXTROSE 5% IV SCH ×2 (08:37→16:31)
[2017-07-19] MEDS: TAZOBACTAM IV SCH ×2 (08:37→16:31)
[2017-07-19] MEDS: FLUTICASONE/SALMETEROL (ADVAIR) 500/50 INH 14 PUFF INH SCH ×2 (08:38→21:03)
[2017-07-19] MEDS: SUCRALFATE 1 GM/10 ML UDC PO SCH ×4 (08:38→21:03)
[2017-07-19] MEDS: POTASSIUM CHLORIDE 20 MEQ TABCR PO SCH ×3 (08:39→21:05)
[2017-07-19] MEDS: NYSTATIN POWDER 15GM BTL EXT SCH ×2 (08:40→21:15)
[2017-07-19] MEDS: LACTOBACILLUS ACIDOPHILUS (FLORANEX) TAB PO SCH ×3 (08:40→21:10)
[2017-07-19] MEDS: hydrOXYzine HCL 25 MG TAB PO SCH ×2 (08:41→21:12)
[2017-07-19] MEDS: CYANOCOBALAMIN 500 MCG TAB (VIT B-12) PO SCH (08:42)
[2017-07-19] MEDS: RISPERIDONE 2 MG TAB PO SCH (08:43)
[2017-07-19] MEDS: SENNA 8.6 MG TAB PO SCH ×2 (08:43→21:06)
[2017-07-19] MEDS: GABAPENTIN 300 MG CAP PO SCH ×2 (08:44→21:13)
[2017-07-19] MEDS: CHOLECALCIFEROL 1000 INTER.UNIT TAB PO SCH ×2 (08:44→21:12)
[2017-07-19] MEDS: LITHIUM CARBONATE 450 MG TABCR PO SCH (08:44)
[2017-07-19] MEDS: FERROUS GLUCONATE 324 MG TAB PO SCH ×2 (08:45→21:09)
[2017-07-19] MEDS: HYOSCYAMINE SULFATE 0.125 MG SL TAB PO SCH ×3 (08:45→21:04)
[2017-07-19] MEDS: VENLAFAXINE HCL XR 75 MG CAPXR PO SCH ×2 (08:45→21:11)
[2017-07-19] MEDS: FAMOTIDINE 20 MG TAB PO SCH (08:46)
[2017-07-19] MEDS: DOCUSATE SODIUM 100 MG CAP PO SCH ×2 (08:46→21:09)
[2017-07-19] MEDS: BENZTROPINE MESYLATE 1 MG TAB PO SCH ×2 (08:46→21:04)
[2017-07-19] MEDS: TOPIRAMATE 100 MG PO SCH ×2 (08:49→21:13)
[2017-07-19] MEDS: OXYCODONE HCL IR 5 MG TAB (IMMEDIATE RELEASE) PO PRN ×2 (08:59→13:38)
[2017-07-19] MEDS ORDERED: LINACLOTIDE 290 MCG CAP PO SCH (09:00)
[2017-07-19] MEDS ORDERED: SENNA 8.6 MG TAB PO SCH (09:00)
[2017-07-19] MEDS ORDERED: MULTIVITAMIN TAB PO SCH (09:00)
[2017-07-19 09:32] LABS: HEMATOCRIT 39.9 % (37-47); HEMOGLOBIN 12.7 g/dL (12.0-16.0); MEAN CELL VOLUME 95.2 fL (80-100); MEAN CORPUSCULAR HEMOGLOBIN 30.3 pg (25-34); MEAN CORPUSCULAR HGB CONC 31.8 g/dl (32-36); MEAN PLATELET VOLUME 9.9 fL (7.4-10.4); PLATELET COUNT 311 K/uL (130-400); RED CELL DISTRIBUTION WIDTH CV 14.3 % (11.5-14.5); RED CELL DISTRIBUTION WIDTH SD 50.1 fL (36.4-46.3); WHITE BLOOD COUNT 7.37 K/uL (4.8-10.8)
[2017-07-19 09:37] LABS: CALCIUM 9.3 mg/dl (8.5-10.1); CREATININE 0.84 mg/dl (0.60-1.20); TOTAL PROTEIN 7.3 gm/dl (6.4-8.2)
[2017-07-19 09:57] LABS: BASO % 0.5 %; BASO ABS # 0.04 K/uL (0-0.2); EOS % 4.2 %; EOS ABS # 0.31 K/uL (0-0.5); IG# 0.01 K/uL (0.00-0.02); LYMPH % 28.5 %; MONO % 7.5 %; MONO ABS # 0.55 K/uL (0.11-0.59); NEUT % 59.2 %; NEUT ABS # 4.36 K/uL (1.4-6.5)
--- NOTE | 2017-07-19 11:14 | INFECT. DISEASE CONSULTATION ---
DATE OF CONSULTATION: 07/19/2017 HISTORY OF PRESENT ILLNESS: This is a 32-year-old female who was sent in by the infectious diseases office after recent urine culture on an outpatient basis grew a sandoval resistant pseudomonas and Stenotrophomonas sensitive to Levaquin and Bactrim. She is allergic to both of these antibiotics. She was placed on Zerbaxa and admitted to the hospital. Her UA in the Emergency Room had greater than 30 WBCs and 2+ bacteria. Repeat urine culture and blood culture are pending. She does not have a leukocytosis. She has been afebrile since admission. On my examination this morning, she is being evaluated by the wound care team as well for a VAC change. She denies any abdominal pain, fevers or chills. Currently, she has no chest pain or shortness of breath. She does admit to generalized fatigue. Her remaining review of systems is unremarkable. PAST MEDICAL HISTORY: Significant for anxiety, asthma, gastroparesis, GERD, hydrocephalus, osteomyelitis, spina bifida, morbid obesity, suprapubic catheter, history of DVT, bipolar disorder, hypothyroidism, chronic suprapubic catheter wound on her right lower extremity with a VAC in place. PAST SURGICAL HISTORY: Also includes bilateral lower extremity amputations. FAMILY HISTORY: Noncontributory. SOCIAL HISTORY: Negative for tobacco use, alcohol use or drug use. ALLERGIES: SHE HAS MULTIPLE ALLERGIES INCLUDING ADHESIVE TAPE, ROCEPHIN, CHLORHEXIDINE, CIPROFLOXACIN, IMIPENEM, LATEX, LINEZOLID, ZOSYN, VANCOMYCIN, TOBRAMYCIN, AMIKACIN AND BACTRIM. CURRENT MEDICATIONS: Include Xarelto, vitamin B12, Pepcid, Vistaril, lithium, multivitamins, risperidone, Linzess, Synthroid, Zyrtec, Zerbaxa, Cogentin, Effexor, nystatin, Colace, Advair, Neurontin, ergotamine, Singulair, Senna, Carafate, vitamin D, iron, Vistaril, potassium, Floranex, Qudexy, Xopenex, meclizine, albuterol, MiraLax, Roxicodone, Tylenol, Maalox, milk of magnesia, MiraLax and Ambien. PHYSICAL EXAMINATION: VITAL SIGNS: She is afebrile, pulse is 92, respiratory rate 18, blood pressure 113/75, oxygen saturation is 96% on room air. GENERAL: She is awake, alert and oriented x3. She is in no acute distress. HEENT: Mucous membranes are moist. Extraocular muscles are intact. HEART: Regular. LUNGS: Clear. ABDOMEN: Soft. Bilateral lower extremity stumps are clean, dry and intact. VAC is in place on the right hip. There is no surrounding induration, fluctuance or erythema. Suprapubic catheter is in place. LABORATORY STUDIES: CBC today reveals a white blood cell count of 7.3, hemoglobin 12.7 and platelets are 311. Chemistry panel reveals a sodium of 140, potassium 3, chloride 111, bicarbonate 18, BUN 11, creatinine 0.8, glucose is 125. LFTs are normal. Urinalysis is as above. Micro is as above. Chest x-ray was unremarkable in the ER. ASSESSMENT AND PLAN: Urinary tract infection. She will continue on Zerbaxa. Tetracycline will be added for the Stenotrophomonas. She will likely need 7 days total of antibiotics. Thank you for this consultation.
--- NOTE | 2017-07-19 11:22 | Progress Note ---
Progress Note Date of Service Jul 19, 2017. Progress Note ID Consult Dictated #[id number] A/P: 1. UTI -Continue zerbaxa, add tigecycline -7days total -Continue wound care -Thank you
[2017-07-19] MEDS ORDERED: TIGEcycline INJ 100 MG in DEXTROSE 5% 100ML 100 ML IV ONE (12:45)
[2017-07-19] MEDS ORDERED: CLONAZEPAM 0.5 MG TAB PO PRN (13:00)
[2017-07-19] MEDS ORDERED: PRENATAL VITAMIN TAB PO ONE (13:15)
[2017-07-19] MEDS ORDERED: NURSING VERBAL MED ORDER ONE (14:00)
[2017-07-19] MEDS ORDERED: DiphenhydrAMINE HCL 50 MG/ML VIAL IV ONE (14:15)
[2017-07-19 15:07] VITALS: BP 136/82; PULSE 108; TEMP 36.3; O2SAT 95
[2017-07-19] MEDS: RIVAROXABAN 20 MG TAB PO SCH (16:34)
--- NOTE | 2017-07-19 20:37 | Progress Note ---
Subjective Date of Service: Jul 19, 2017. Subjective Pt evaluation today including: conversation w/ patient, conversation w/ family (mother at bedside), physical exam, chart review, lab review, review of studies (cultures ), review of inpatient medication list Pain: none reported during my visit PO Intake: normal Voiding: arango catheter in place (suprapubic cath) patient c/o severe insomnia despite all of her normal psych meds (only slept 2 hrs last pm) otherwise feeling ok mother reports that wound on right thigh has had foul odor for about 1 week with that said the wound has been getting smaller with use of wound vac mother asks about "pretreating" w/ antihistamines prior to use of IV abx no fevers Problem List Medical Problems: (1) Abdominal pain Status: Acute (2) Acute mastitis of right breast Status: Acute (3) Acute pyelonephritis Status: Acute (4) Allergic reaction Status: Acute (5) Allergic reaction Status: Acute (6) Asthma with exacerbation Status: Acute (7) Cellulitis of right buttock Status: Acute (8) Chronic headache Status: Acute (9) Chronic UTI (urinary tract infection) Status: Acute (10) Complicated urinary tract infection Status: Acute (11) Decubitus ulcer of right leg, stage 4 Status: Acute (12) Dehydration Status: Acute (13) Delusions Status: Acute (14) Diarrhea Status: Acute (15) Drowsiness Status: Acute (16) Failure of outpatient treatment Status: Acute (17) Gabapentin overdose Status: Acute (18) Hypokalemia Status: Acute (19) Hypokalemia Status: Acute (20) Hypokalemia Status: Acute (21) Infection due to highly antibiotic-resistant Pseudomonas Status: Acute (22) Intractable headache Status: Acute (23) Laceration Status: Acute (24) Leg pain, right Status: Acute (25) Low back pain Status: Acute (26) Lower abdominal pain Status: Acute (27) Lower abdominal pain Status: Acute (28) Mood disorder Status: Acute (29) Mood disorder Status: Acute (30) Multiple drug resistant organism (MDRO) culture positive Status: Acute (31) Nausea Status: Acute (32) Nausea Status: Acute (33) Paranoia Status: Acute (34) Pelvic pain Status: Acute (35) Right flank pain Status: Acute (36) Right leg pain Status: Acute (37) Self-harming behavior Status: Acute (38) Shunt malfunction Status: Acute (39) Shunt malfunction Status: Acute (40) Suicidal ideation Status: Acute (41) Suicidal ideation Status: Acute (42) Suicidal ideation Status: Acute (43) Suprapubic pain Status: Acute (44) Urinary tract infection Status: Acute (45) Urinary tract infection Status: Acute (46) Urinary tract infection Status: Acute (47) UTI (urinary tract infection) Status: Acute (48) UTI (urinary tract infection) Status: Acute (49) Weakness Status: Acute (50) Yeast dermatitis Status: Acute Review of Systems Constitutional: No fever, No chills Respiratory: No shortness of breath Cardiac: No chest pain Abdomen: No pain Objective Vital Signs Date Time Temp Pulse Resp B/P (MAP) Pulse Ox O2 Delivery O2 Flow Rate FiO2 07/19/17 16:00 Room Air 07/19/17 15:07 36.3 108 18 136/82 (100) 95 Room Air 07/19/17 08:00 Room Air 07/19/17 07:32 36.8 92 18 113/75 (88) 96 Room Air 07/19/17 00:57 36.8 87 20 109/67 (81) 94 Room Air 07/19/17 00:30 Room Air 07/18/17 21:30 36.4 88 20 99/66 Room Air Physical Exam General Appearance: no apparent distress, + obese ENT: pharynx normal Neck: no JVD Respiratory/Chest: lungs clear, no respiratory distress, no accessory muscle use, + decreased breath sounds (bases) Cardiovascular: regular rate, rhythm, no gallop, no murmur Abdomen: normal bowel sounds, non tender, soft, no organomegaly Extremities: + pertinent finding (b/l BKA) Neurologic/Psychiatric: alert, oriented x 3 Skin: no rash, + pertinent finding (wound vac in place, right thigh) Laboratory Results Last 24 Hours Test 07/19/17 07:50 07/19/17 08:36 07/19/17 10:00 07/19/17 11:23 Bedside Glucose 119 mg/dl 84 mg/dl White Blood Count 7.37 K/uL Red Blood Count 4.19 M/uL Hemoglobin 12.7 g/dL Hematocrit 39.9 % Mean Corpuscular Volume 95.2 fL Mean Corpuscular Hemoglobin 30.3 pg Mean Corpuscular Hemoglobin Concent 31.8 g/dl Platelet Count 311 K/uL Mean Platelet Volume 9.9 fL Neutrophils (%) (Auto) 59.2 % Lymphocytes (%) (Auto) 28.5 % Monocytes (%) (Auto) 7.5 % Eosinophils (%) (Auto) 4.2 % Basophils (%) (Auto) 0.5 % Neutrophils # (Auto) 4.36 K/uL Lymphocytes # (Auto) 2.10 K/uL Monocytes # (Auto) 0.55 K/uL Eosinophils # (Auto) 0.31 K/uL Basophils # (Auto) 0.04 K/uL RDW Standard Deviation 50.1 fL RDW Coefficient of Variation 14.3 % Immature Granulocyte % (Auto) 0.1 % Immature Granulocyte # (Auto) 0.01 K/uL Sodium Level 140 mmol/L Potassium Level mmol/L 3.0 mmol/L Chloride Level 111 mmol/L Carbon Dioxide Level 18 mmol/L Anion Gap 11.0 mmol/L Blood Urea Nitrogen 11 mg/dl Creatinine 0.84 mg/dl Est Creatinine Clear Calc Drug Dose 80.7 ml/min Estimated GFR () 108.1 Estimated GFR (Non- 93.3 BUN/Creatinine Ratio 12.7 Random Glucose 125 mg/dl Calcium Level 9.3 mg/dl Magnesium Level mg/dl 2.4 mg/dl Total Bilirubin 0.5 mg/dl Aspartate Amino Transf (AST/SGOT) U/L 5 U/L Alanine Aminotransferase (ALT/SGPT) 22 U/L Alkaline Phosphatase 99 U/L Total Protein 7.3 gm/dl Albumin 3.0 gm/dl Globulin 4.3 gm/dl Albumin/Globulin Ratio 0.7 Assessment and Plan 32yo female - 1. possible complicated UTI 2nd to sandoval-resistant pseudomonas & stenotrophamonas - zerbaxa & tigecycline. I question if the pseudomonas is truly pathogenic or colonizer as this organism has grown on numerous old urine cultures. Appreciate ID consultation. 2. possible superimposed infection of chronic right thigh wound - culture pending. Apparently has had foul odor x 1 week. Await culture. Appreciate wound care team and replacement of wound vac today. 3. neurogenic bladder 2nd to spina bifida with suprapubic catheter in place - due to be exchanged on Monday; mother performs this procedure. 4. morbid obesity - BMI 75 5. spina bifida with paraplegic status 6. asthma - not in exacerbation 7. hypokalemia - increase K supplementation; BMP in am. Mag was normal. 8. DVT proph - xarelto. 9. h/o V-P shunt with multiple revisions - noted; mental status is at baseline today. 10. RLE pain - oxycodone 5-10mg prn 11. anxiety - clonazepam 0.25mg q12h prn cautiously 12. bipolar type 1 d/o - psych consult to assist with severe insomnia ( multiple medications for her bipolar - defer management to psych) 13. h/o PEs - xarelto 14. hypothyroidism - TSH compensated as of 06/2017; cont synthroid Continued [facility] stay due to: multiple IV medications needed
[2017-07-19] MEDS: LITHIUM CARBONATE 300 MG TAB PO SCH (21:05)
[2017-07-19] MEDS: RISPERIDONE 1 MG TAB PO SCH (21:08)
[2017-07-19] MEDS: MONTELUKAST SOD 10 MG TAB PO SCH (21:11)
[2017-07-19 23:25] VITALS: BP_SYST 184; BP_SYST 99; BP_DIAS 62; PULSE 63; PULSE 94; TEMP 36.6; TEMP 36.8; O2SAT 94; O2SAT 96
[2017-07-20] MEDS: DiphenhydrAMINE HCL 50 MG/ML VIAL IV PRN ×4 (00:19→23:50)
[2017-07-20] MEDS: TIGEcycline INJ 50 MG in DEXTROSE 5% 100ML 100 ML IV SCH ×3 (00:23→23:53)
[2017-07-20] MEDS: CEFTOLOZANE IV SCH ×3 (00:59→16:54)
[2017-07-20] MEDS: TAZOBACTAM IV SCH ×3 (00:59→16:54)
[2017-07-20] MEDS: DEXTROSE 5% IV SCH ×3 (00:59→16:54)
[2017-07-20] MEDS: LEVOTHYROXINE 75 MCG TAB PO SCH (06:45)
[2017-07-20] MEDS: LINACLOTIDE 290 MCG CAP PO SCH (06:45)
[2017-07-20 07:16] VITALS: BP 116/70; PULSE 75; TEMP 36.5; O2SAT 93
[2017-07-20] MEDS: FLUTICASONE/SALMETEROL (ADVAIR) 500/50 INH 14 PUFF INH SCH ×2 (07:51→20:44)
[2017-07-20] MEDS: SUCRALFATE 1 GM/10 ML UDC PO SCH ×4 (07:51→20:45)
[2017-07-20] MEDS: PRENATAL VITAMIN TAB PO SCH (07:52)
[2017-07-20] MEDS: FAMOTIDINE 20 MG TAB PO SCH (07:52)
[2017-07-20] MEDS: FERROUS GLUCONATE 324 MG TAB PO SCH ×2 (07:52→20:47)
[2017-07-20] MEDS: LACTOBACILLUS ACIDOPHILUS (FLORANEX) TAB PO SCH ×3 (07:53→20:47)
[2017-07-20] MEDS: RISPERIDONE 2 MG TAB PO SCH (07:53)
[2017-07-20] MEDS: HYOSCYAMINE SULFATE 0.125 MG SL TAB PO SCH ×3 (07:53→20:46)
[2017-07-20] MEDS: BENZTROPINE MESYLATE 1 MG TAB PO SCH ×2 (07:53→20:52)
[2017-07-20] MEDS: SENNA 8.6 MG TAB PO SCH ×2 (07:54→20:48)
[2017-07-20] MEDS: LITHIUM CARBONATE 450 MG TABCR PO SCH (07:54)
[2017-07-20] MEDS: GABAPENTIN 300 MG CAP PO SCH ×2 (07:55→20:47)
[2017-07-20] MEDS: DOCUSATE SODIUM 100 MG CAP PO SCH ×2 (07:55→20:46)
[2017-07-20] MEDS: CHOLECALCIFEROL 1000 INTER.UNIT TAB PO SCH ×2 (07:55→20:46)
[2017-07-20] MEDS: POTASSIUM CHLORIDE 20 MEQ TABCR PO SCH ×4 (07:55→22:26)
[2017-07-20] MEDS: CYANOCOBALAMIN 500 MCG TAB (VIT B-12) PO SCH (07:55)
[2017-07-20] MEDS: VENLAFAXINE HCL XR 75 MG CAPXR PO SCH (07:55)
[2017-07-20] MEDS: hydrOXYzine HCL 25 MG TAB PO SCH ×2 (07:56→20:50)
[2017-07-20] MEDS: TOPIRAMATE 100 MG PO SCH ×2 (07:57→20:53)
[2017-07-20] MEDS: NYSTATIN POWDER 15GM BTL EXT SCH ×2 (07:58→20:44)
[2017-07-20] MEDS: CETIRIZINE HCL 10 MG TAB PO SCH (07:58)
--- NOTE | 2017-07-20 08:50 | Progress Note ---
Subjective Date of Service: Jul 20, 2017. Subjective tolerating abx. no overnight events. urine culture with gnr, previous cultures with pseudomonas and stenotrophomonas. afebrile overnight. s/p change wound vac yesterday, wound culture obtained Problem List Medical Problems: (1) Abdominal pain Status: Acute (2) Acute mastitis of right breast Status: Acute (3) Acute pyelonephritis Status: Acute (4) Allergic reaction Status: Acute (5) Allergic reaction Status: Acute (6) Asthma with exacerbation Status: Acute (7) Cellulitis of right buttock Status: Acute (8) Chronic headache Status: Acute (9) Chronic UTI (urinary tract infection) Status: Acute (10) Complicated urinary tract infection Status: Acute (11) Decubitus ulcer of right leg, stage 4 Status: Acute (12) Dehydration Status: Acute (13) Delusions Status: Acute (14) Diarrhea Status: Acute (15) Drowsiness Status: Acute (16) Failure of outpatient treatment Status: Acute (17) Gabapentin overdose Status: Acute (18) Hypokalemia Status: Acute (19) Hypokalemia Status: Acute (20) Hypokalemia Status: Acute (21) Infection due to highly antibiotic-resistant Pseudomonas Status: Acute (22) Intractable headache Status: Acute (23) Laceration Status: Acute (24) Leg pain, right Status: Acute (25) Low back pain Status: Acute (26) Lower abdominal pain Status: Acute (27) Lower abdominal pain Status: Acute (28) Mood disorder Status: Acute (29) Mood disorder Status: Acute (30) Multiple drug resistant organism (MDRO) culture positive Status: Acute (31) Nausea Status: Acute (32) Nausea Status: Acute (33) Paranoia Status: Acute (34) Pelvic pain Status: Acute (35) Right flank pain Status: Acute (36) Right leg pain Status: Acute (37) Self-harming behavior Status: Acute (38) Shunt malfunction Status: Acute (39) Shunt malfunction Status: Acute (40) Suicidal ideation Status: Acute (41) Suicidal ideation Status: Acute (42) Suicidal ideation Status: Acute (43) Suprapubic pain Status: Acute (44) Urinary tract infection Status: Acute (45) Urinary tract infection Status: Acute (46) Urinary tract infection Status: Acute (47) UTI (urinary tract infection) Status: Acute (48) UTI (urinary tract infection) Status: Acute (49) Weakness Status: Acute (50) Yeast dermatitis Status: Acute Objective Vital Signs Date Time Temp Pulse Resp B/P (MAP) Pulse Ox O2 Delivery O2 Flow Rate FiO2 07/20/17 07:16 36.5 75 20 116/70 (85) 93 Room Air 07/20/17 00:40 Room Air 07/19/17 23:25 36.6 94 20 99/62 (74) 96 Nasal Cannula 07/19/17 16:00 Room Air 07/19/17 15:07 36.3 108 18 136/82 (100) 95 Room Air Laboratory Results Item Value Date Time Urine Culture - Preliminary Resulted 12/13/15 0000 Urine,Catheterized Gram Negative Bacilli Urine Culture - Final Complete 12/04/15 1410 Urine,Catheterized Pseudomonas Aeruginosa Urine Culture - Preliminary Resulted 12/13/15 0000 Urine,Catheterized Pseudomonas Aeruginosa Urine Culture - Final Complete 04/19/162009 Urine,Catheterized NO GROWTH - LESS THAN 1,000 COLONIES/ML Blood Culture - Preliminary Resulted 07/18/17 1655 Blood NO GROWTH TO DATE. Urine Culture - Preliminary Resulted 07/19/17 0000 Urine,Catheterized Gram Negative Bacilli Last 24 Hours Test 07/19/17 10:00 07/19/17 11:23 07/20/17 07:46 Potassium Level 3.0 mmol/L Magnesium Level 2.4 mg/dl Aspartate Amino Transf (AST/SGOT) 5 U/L Bedside Glucose 84 mg/dl Assessment and Plan (1) UTI (urinary tract infection) Assessment & Plan: continue abx, follow culture Continued [facility] stay due to: multiple IV medications needed Problem Qualifiers (1) UTI (urinary tract infection): Urinary tract infection type: catheter-associated UTI Indwelling urinary catheter type: unspecified Encounter type: subsequent encounter Qualified Codes: T83.511D - Infection and inflammatory reaction due to indwelling urethral catheter, subsequent encounter; N39.0 - Urinary tract infection, site not specified
[2017-07-20 09:53] LABS: CALCIUM 9.1 mg/dl (8.5-10.1); CREATININE 0.76 mg/dl (0.60-1.20); POTASSIUM 3.9 mmol/L (3.5-5.1)
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
[2017-07-20] MEDS: OXYCODONE HCL IR 5 MG TAB (IMMEDIATE RELEASE) PO PRN (16:09)
[2017-07-20] MEDS: RIVAROXABAN 20 MG TAB PO SCH (16:10)
[2017-07-20 16:13] VITALS: BP 113/70; PULSE 98; TEMP 36.7; O2SAT 96
[2017-07-20] MEDS: ONDANSETRON 4MG OD TAB SL PRN (17:30)
[2017-07-20] MEDS ORDERED: NURSING VERBAL MED ORDER ONE ×2 (18:00)
[2017-07-20] MEDS: MONTELUKAST SOD 10 MG TAB PO SCH (20:48)
[2017-07-20] MEDS: LITHIUM CARBONATE 300 MG TAB PO SCH (20:49)
[2017-07-20] MEDS: RISPERIDONE 1 MG TAB PO SCH (20:51)
--- NOTE | 2017-07-20 21:03 | Progress Note ---
Subjective Date of Service: Jul 20, 2017. Subjective Pt evaluation today including: conversation w/ patient, conversation w/ family (mother at bedside), physical exam, chart review, lab review, review of inpatient medication list Pain: bladder spasms but declines antispasmodic (like ditropan) PO Intake: she reports poor appetite, but staff state she is eating everything Voiding: arango catheter in place (suprapubic) only complaint is that of bladder spasm declines Rx for such slept better last pm suprapubic catheter is due to exchange tomorrow - mother to perform such no fevers or chills Problem List Medical Problems: (1) Abdominal pain Status: Acute (2) Acute mastitis of right breast Status: Acute (3) Acute pyelonephritis Status: Acute (4) Allergic reaction Status: Acute (5) Allergic reaction Status: Acute (6) Asthma with exacerbation Status: Acute (7) Cellulitis of right buttock Status: Acute (8) Chronic headache Status: Acute (9) Chronic UTI (urinary tract infection) Status: Acute (10) Complicated urinary tract infection Status: Acute (11) Decubitus ulcer of right leg, stage 4 Status: Acute (12) Dehydration Status: Acute (13) Delusions Status: Acute (14) Diarrhea Status: Acute (15) Drowsiness Status: Acute (16) Failure of outpatient treatment Status: Acute (17) Gabapentin overdose Status: Acute (18) Hypokalemia Status: Acute (19) Hypokalemia Status: Acute (20) Hypokalemia Status: Acute (21) Infection due to highly antibiotic-resistant Pseudomonas Status: Acute (22) Intractable headache Status: Acute (23) Laceration Status: Acute (24) Leg pain, right Status: Acute (25) Low back pain Status: Acute (26) Lower abdominal pain Status: Acute (27) Lower abdominal pain Status: Acute (28) Mood disorder Status: Acute (29) Mood disorder Status: Acute (30) Multiple drug resistant organism (MDRO) culture positive Status: Acute (31) Nausea Status: Acute (32) Nausea Status: Acute (33) Paranoia Status: Acute (34) Pelvic pain Status: Acute (35) Right flank pain Status: Acute (36) Right leg pain Status: Acute (37) Self-harming behavior Status: Acute (38) Shunt malfunction Status: Acute (39) Shunt malfunction Status: Acute (40) Suicidal ideation Status: Acute (41) Suicidal ideation Status: Acute (42) Suicidal ideation Status: Acute (43) Suprapubic pain Status: Acute (44) Urinary tract infection Status: Acute (45) Urinary tract infection Status: Acute (46) Urinary tract infection Status: Acute (47) UTI (urinary tract infection) Status: Acute (48) UTI (urinary tract infection) Status: Acute (49) Weakness Status: Acute (50) Yeast dermatitis Status: Acute Review of Systems Constitutional: No fever, No chills Respiratory: No cough, No shortness of breath Cardiac: No chest pain Abdomen: + nausea (occasional ), No vomiting, No constipation Objective Vital Signs Date Time Temp Pulse Resp B/P (MAP) Pulse Ox O2 Delivery O2 Flow Rate FiO2 07/20/17 16:13 36.7 98 18 113/70 (84) 96 Room Air 07/20/17 16:00 Room Air 07/20/17 08:00 Room Air 07/20/17 07:16 36.5 75 20 116/70 (85) 93 Room Air 07/20/17 00:40 Room Air 07/19/17 23:25 36.6 94 20 99/62 (74) 96 Nasal Cannula Physical Exam General Appearance: no apparent distress, + obese ENT: pharynx normal Neck: no JVD Respiratory/Chest: lungs clear, no respiratory distress, no accessory muscle use Cardiovascular: regular rate, rhythm, no gallop, no murmur Abdomen: normal bowel sounds, non tender, soft, no organomegaly Extremities: + pertinent finding (b/l BKA) Neurologic/Psychiatric: alert, oriented x 3 Laboratory Results Last 24 Hours Test 07/20/17 08:46 Sodium Level 138 mmol/L Potassium Level 3.9 mmol/L Chloride Level 110 mmol/L Carbon Dioxide Level 21 mmol/L Anion Gap 7.0 mmol/L Blood Urea Nitrogen 16 mg/dl Creatinine 0.76 mg/dl Est Creatinine Clear Calc Drug Dose 89.1 ml/min Estimated GFR () 122.0 Estimated GFR (Non- 105.3 BUN/Creatinine Ratio 21.1 Random Glucose 120 mg/dl Calcium Level 9.1 mg/dl Assessment and Plan 32yo female - 1. possible complicated UTI 2nd to sandoval-resistant pseudomonas & stenotrophamonas - zerbaxa & tigecycline. I question if the pseudomonas is truly pathogenic or colonizer as this organism has grown on numerous old urine cultures. Appreciate ID consultation. A repeat urine cx is thus far growing a GNR - suspect it will be the pseudomonas. Vitals & CBC remain normal. 2. possible superimposed infection of chronic right thigh wound - culture pending. Apparently has had foul odor x 1 week. Await culture. Appreciate wound care team and replacement of wound vac. 3. neurogenic bladder 2nd to spina bifida with suprapubic catheter in place - due to be exchanged on Monday; mother performs this procedure. Staff aware. 4. morbid obesity - BMI 75 5. spina bifida with paraplegic status 6. asthma - not in exacerbation 7. hypokalemia - resolved. Cut dose of supplement back to 40meq BID. Repeat BMP am. 8. DVT proph - xarelto. 9. h/o V-P shunt with multiple revisions - noted; mental status is at baseline once again today. 10. RLE pain - oxycodone 5-10mg prn 11. anxiety - psych recommending d/c of clonazepam. 12. bipolar type 1 d/o - psych consult appreciated. They have changed her effexor to 150mg qam. 13. h/o PEs - xarelto 14. hypothyroidism - TSH compensated as of 06/2017; cont synthroid mother updated at bedside Continued [facility] stay due to: multiple IV medications needed Discharge planning: home with home health
[2017-07-21] MEDS: TAZOBACTAM IV SCH ×3 (00:30→15:52)
[2017-07-21] MEDS: DEXTROSE 5% IV SCH ×3 (00:30→15:52)
[2017-07-21] MEDS: CEFTOLOZANE IV SCH ×3 (00:30→15:52)
[2017-07-21 00:39] VITALS: BP 117/75; PULSE 89; TEMP 36.5; O2SAT 95
[2017-07-21] MEDS: LINACLOTIDE 290 MCG CAP PO SCH (06:07)
[2017-07-21] MEDS: LEVOTHYROXINE 75 MCG TAB PO SCH (06:07)
[2017-07-21 07:23] LABS: CREATININE 0.78 mg/dl (0.60-1.20)
[2017-07-21 07:24] LABS: CALCIUM 8.9 mg/dl (8.5-10.1); POTASSIUM 4.5 mmol/L (3.5-5.1)
[2017-07-21 08:36] VITALS: BP 125/75; PULSE 75; TEMP 37.1; O2SAT 95
[2017-07-21] MEDS: DiphenhydrAMINE HCL 50 MG/ML VIAL IV PRN ×3 (08:55→22:44)
[2017-07-21] MEDS: TOPIRAMATE 100 MG PO SCH ×2 (08:56→20:55)
[2017-07-21] MEDS: FAMOTIDINE 20 MG TAB PO SCH (08:57)
[2017-07-21] MEDS: POTASSIUM CHLORIDE 20 MEQ TABCR PO SCH ×2 (08:57→15:56)
[2017-07-21] MEDS: CETIRIZINE HCL 10 MG TAB PO SCH (08:57)
[2017-07-21] MEDS: VENLAFAXINE HCL XR 150 MG CAPXR PO SCH (08:58)
[2017-07-21] MEDS: CYANOCOBALAMIN 500 MCG TAB (VIT B-12) PO SCH (08:58)
[2017-07-21] MEDS: hydrOXYzine HCL 25 MG TAB PO SCH ×2 (08:58→20:51)
[2017-07-21] MEDS: RISPERIDONE 2 MG TAB PO SCH (08:59)
[2017-07-21] MEDS: BENZTROPINE MESYLATE 1 MG TAB PO SCH ×2 (08:59→20:50)
[2017-07-21] MEDS: LITHIUM CARBONATE 450 MG TABCR PO SCH (08:59)
[2017-07-21] MEDS: SUCRALFATE 1 GM/10 ML UDC PO SCH ×5 (08:59→20:56)
[2017-07-21] MEDS: SENNA 8.6 MG TAB PO SCH ×3 (09:00→21:00)
[2017-07-21] MEDS: FLUTICASONE/SALMETEROL (ADVAIR) 500/50 INH 14 PUFF INH SCH ×2 (09:00→20:47)
[2017-07-21] MEDS: CHOLECALCIFEROL 1000 INTER.UNIT TAB PO SCH ×2 (09:01→20:54)
[2017-07-21] MEDS: GABAPENTIN 300 MG CAP PO SCH ×2 (09:01→20:49)
[2017-07-21] MEDS: PRENATAL VITAMIN TAB PO SCH (09:01)
[2017-07-21] MEDS: FERROUS GLUCONATE 324 MG TAB PO SCH ×2 (09:01→20:48)
[2017-07-21] MEDS: LACTOBACILLUS ACIDOPHILUS (FLORANEX) TAB PO SCH ×3 (09:01→20:49)
[2017-07-21] MEDS: HYOSCYAMINE SULFATE 0.125 MG SL TAB PO SCH ×3 (09:02→20:51)
[2017-07-21] MEDS: NYSTATIN POWDER 15GM BTL EXT SCH ×2 (09:02→20:47)
[2017-07-21] MEDS: DOCUSATE SODIUM 100 MG CAP PO SCH ×3 (09:02→21:00)
--- NOTE | 2017-07-21 10:42 | Progress Note ---
Subjective Date of Service: Jul 21, 2017. Subjective tolerating abx, afebrile. urine with pseudomonas again, sandoval R and 2nd gnr. blood cultures negative. wound culture with skin luis. wbc nml. Problem List Medical Problems: (1) Abdominal pain Status: Acute (2) Acute mastitis of right breast Status: Acute (3) Acute pyelonephritis Status: Acute (4) Allergic reaction Status: Acute (5) Allergic reaction Status: Acute (6) Asthma with exacerbation Status: Acute (7) Cellulitis of right buttock Status: Acute (8) Chronic headache Status: Acute (9) Chronic UTI (urinary tract infection) Status: Acute (10) Complicated urinary tract infection Status: Acute (11) Decubitus ulcer of right leg, stage 4 Status: Acute (12) Dehydration Status: Acute (13) Delusions Status: Acute (14) Diarrhea Status: Acute (15) Drowsiness Status: Acute (16) Failure of outpatient treatment Status: Acute (17) Gabapentin overdose Status: Acute (18) Hypokalemia Status: Acute (19) Hypokalemia Status: Acute (20) Hypokalemia Status: Acute (21) Infection due to highly antibiotic-resistant Pseudomonas Status: Acute (22) Intractable headache Status: Acute (23) Laceration Status: Acute (24) Leg pain, right Status: Acute (25) Low back pain Status: Acute (26) Lower abdominal pain Status: Acute (27) Lower abdominal pain Status: Acute (28) Mood disorder Status: Acute (29) Mood disorder Status: Acute (30) Multiple drug resistant organism (MDRO) culture positive Status: Acute (31) Nausea Status: Acute (32) Nausea Status: Acute (33) Paranoia Status: Acute (34) Pelvic pain Status: Acute (35) Right flank pain Status: Acute (36) Right leg pain Status: Acute (37) Self-harming behavior Status: Acute (38) Shunt malfunction Status: Acute (39) Shunt malfunction Status: Acute (40) Suicidal ideation Status: Acute (41) Suicidal ideation Status: Acute (42) Suicidal ideation Status: Acute (43) Suprapubic pain Status: Acute (44) Urinary tract infection Status: Acute (45) Urinary tract infection Status: Acute (46) Urinary tract infection Status: Acute (47) UTI (urinary tract infection) Status: Acute (48) UTI (urinary tract infection) Status: Acute (49) Weakness Status: Acute (50) Yeast dermatitis Status: Acute Objective Vital Signs Date Time Temp Pulse Resp B/P (MAP) Pulse Ox O2 Delivery O2 Flow Rate FiO2 07/21/17 08:36 37.1 75 18 125/75 (92) 95 Room Air 07/21/17 00:39 36.5 89 18 117/75 (89) 95 Room Air 07/21/17 00:30 Room Air 07/20/17 20:20 Room Air 07/20/17 16:13 36.7 98 18 113/70 (84) 96 Room Air 07/20/17 16:00 Room Air Laboratory Results Item Value Date Time Urine Culture - Preliminary Resulted 07/19/17 0000 Urine,Catheterized Pseudomonas Aeruginosa Blood Culture - Preliminary Resulted 07/18/17 1703 Blood NO GROWTH TO DATE. Blood Culture - Preliminary Resulted 07/18/17 1655 Blood NO GROWTH TO DATE. Last 24 Hours Test 07/21/17 06:24 Sodium Level 139 mmol/L Potassium Level 4.5 mmol/L Chloride Level 110 mmol/L Carbon Dioxide Level 23 mmol/L Anion Gap 6.0 mmol/L Blood Urea Nitrogen 17 mg/dl Creatinine 0.78 mg/dl Est Creatinine Clear Calc Drug Dose 86.9 ml/min Estimated GFR () 118.2 Estimated GFR (Non- 102.0 BUN/Creatinine Ratio 22.2 Random Glucose 91 mg/dl Calcium Level 8.9 mg/dl Assessment and Plan (1) UTI (urinary tract infection) Permanent Comment: with suprapubic catheter Last Edited By: Lisa Granger on Jun 26, 2016 09:31 Assessment & Plan: continue abx, follow culture. wound culture likely skin colonization, no change to abx at this time. Continued [facility] stay due to: multiple IV medications needed Discharge planning: home with home health Problem Qualifiers (1) UTI (urinary tract infection): Urinary tract infection type: catheter-associated UTI Indwelling urinary catheter type: unspecified Encounter type: subsequent encounter Qualified Codes: T83.511D - Infection and inflammatory reaction due to indwelling urethral catheter, subsequent encounter; N39.0 - Urinary tract infection, site not specified
[2017-07-21] MEDS: TIGEcycline INJ 50 MG in DEXTROSE 5% 100ML 100 ML IV SCH ×2 (12:32→23:39)
[2017-07-21 15:03] VITALS: BP 128/74; PULSE 98; TEMP 36.4; O2SAT 98
[2017-07-21] MEDS: RIVAROXABAN 20 MG TAB PO SCH (15:56)
[2017-07-21] MEDS: OXYCODONE HCL IR 5 MG TAB (IMMEDIATE RELEASE) PO PRN (18:19)
[2017-07-21] MEDS: ONDANSETRON INJ 2 MG/ML 2 ML VIAL IV PRN (20:05)
[2017-07-21] MEDS: ONDANSETRON 4MG OD TAB SL PRN (20:09)
[2017-07-21] MEDS: LITHIUM CARBONATE 300 MG TAB PO SCH (20:50)
[2017-07-21] MEDS: RISPERIDONE 1 MG TAB PO SCH (20:52)
[2017-07-21] MEDS: MONTELUKAST SOD 10 MG TAB PO SCH (20:53)
--- NOTE | 2017-07-21 22:38 | Hospitalist Progress Note ---
Hospitalist Progress Note Date of Service Jul 21, 2017. Subjective Pt evaluation today including: conversation w/ patient, conversation w/ family , conversation w/ travel sales consultant (Infectious disease) Voiding: arango catheter in place Patient's mother changed out her suprapubic catheter today and that went well. She denies any abdominal pain. No confusion or hallucinations like she has had in the past with infections. She denies any other concerns. Her wound VAC was changed today and the wound apparently looks much improved as per the mother and the patient All Other Systems: Reviewed and Negative Objective Vital Signs Date Time Temp Pulse Resp B/P (MAP) Pulse Ox O2 Delivery O2 Flow Rate FiO2 07/21/17 16:00 Room Air 07/21/17 15:03 36.4 98 20 128/74 (92) 98 Room Air 07/21/17 08:45 Room Air 07/21/17 08:36 37.1 75 18 125/75 (92) 95 Room Air 07/21/17 00:39 36.5 89 18 117/75 (89) 95 Room Air 07/21/17 00:30 Room Air Physical Exam General Appearance: WD/WN, no apparent distress, + obese Eyes: normal inspection, sclerae normal ENT: hearing grossly normal Neck: trachea midline Respiratory/Chest: lungs clear, normal breath sounds, no respiratory distress, no accessory muscle use Cardiovascular: regular rate, rhythm, no edema, no gallop, no murmur Abdomen: normal bowel sounds, non tender, soft (And morbidly obese) Extremities: + pertinent finding (Bilateral BKA's, right posterior thigh with wound VAC in place without surrounding erythema) Neurologic/Psychiatric: alert, normal mood/affect, oriented x 3 Skin: warm/dry, no rash Laboratory Results Last 24 Hours Test 07/21/17 06:24 Sodium Level 139 mmol/L Potassium Level 4.5 mmol/L Chloride Level 110 mmol/L Carbon Dioxide Level 23 mmol/L Anion Gap 6.0 mmol/L Blood Urea Nitrogen 17 mg/dl Creatinine 0.78 mg/dl Est Creatinine Clear Calc Drug Dose 86.9 ml/min Estimated GFR () 118.2 Estimated GFR (Non- 102.0 BUN/Creatinine Ratio 22.2 Random Glucose 91 mg/dl Calcium Level 8.9 mg/dl Assessment and Plan This patient is a 32yo female with a history of spina bifida, neurogenic bladder with chronic suprapubic catheter, recurrent resistant UTIs, morbid obesity, anxiety disorder, schizoaffective disorder-bipolar type, with psychotic features, asthma, history of PE on Xarelto, here with recurrent resistant UTI- 1. Complicated UTI 2nd to sandoval-resistant pseudomonas & stenotrophamonas from outpatient urine culture zerbaxa & tigecycline. I question if the pseudomonas is truly pathogenic or colonizer as this organism has grown on numerous old urine cultures. However, patient does report she had significant abdominal pain generalized malaise when the infection began Appreciate ID consultation. -Plan for PICC line placement tomorrow and could discharge to home with a total of 7 days of antibiotics A repeat urine cx is thus far growing Pseudomonas and a GNR -awaiting final culture results Vitals & CBC remain normal. 2. possible superimposed infection of chronic right thigh wound - culture pending. Apparently has had foul odor x 1 week prior to admission. Pictures of wounds look great today Wound culture with growth of corynebacterium species-skin species and will not be treated as per ID Appreciate wound care team and replacement of wound vac and continue follow-up once weekly in the wound care clinic 3. neurogenic bladder 2nd to spina bifida with suprapubic catheter in place - exchanged on 07/21 4. morbid obesity - BMI 75 5. spina bifida with paraplegic status 6. asthma - not in exacerbation 7. hypokalemia - resolved. Cut dose of supplement back to 40meq BID. Repeat BMP am shows normal potassium level 8. DVT proph - xarelto but has completed 7-8 months of therapy-patient reports she is likely going to stop it in the future, but is awaiting further evaluation 9. h/o V-P shunt with multiple revisions - noted; mental status is at baseline once again today. 10. RLE pain - oxycodone 5-10mg prn 11. anxiety - psych recommending d/c of clonazepam. 12. bipolar type 1 d/o - psych consult appreciated. They have changed her effexor to 150mg qam. Also recommended stopping clonazepam which has been completed 13. h/o PEs -provoked by combined estrogen/progesterone OCPs, on Xarelto as above 14. hypothyroidism - TSH compensated as of 06/2017; cont synthroid Disposition-likely to home tomorrow if IV antibiotics approved and after PICC line placed
[2017-07-21] MEDS: MECLIZINE HCL 25 MG TAB PO PRN (22:43)
[2017-07-22 00:12] VITALS: BP 105/62; PULSE 89; TEMP 37; O2SAT 94
[2017-07-22] MEDS: TAZOBACTAM IV SCH ×3 (00:17→17:33)
[2017-07-22] MEDS: DEXTROSE 5% IV SCH ×3 (00:17→17:33)
[2017-07-22] MEDS: CEFTOLOZANE IV SCH ×3 (00:17→17:33)
[2017-07-22] MEDS: LEVOTHYROXINE 75 MCG TAB PO SCH (06:42)
[2017-07-22] MEDS: LINACLOTIDE 290 MCG CAP PO SCH (06:42)
[2017-07-22 07:20] VITALS: BP 110/71; PULSE 79; TEMP 36.5; O2SAT 96
[2017-07-22] MEDS: DiphenhydrAMINE HCL 50 MG/ML VIAL IV PRN ×3 (07:30→23:56)
[2017-07-22 08:30] VITALS: O2SAT 96
[2017-07-22] MEDS: POTASSIUM CHLORIDE 20 MEQ TABCR PO SCH ×2 (08:31→17:34)
[2017-07-22] MEDS: FLUTICASONE/SALMETEROL (ADVAIR) 500/50 INH 14 PUFF INH SCH ×2 (08:31→20:35)
[2017-07-22] MEDS: SENNA 8.6 MG TAB PO SCH ×2 (08:31→20:40)
[2017-07-22] MEDS: SUCRALFATE 1 GM/10 ML UDC PO SCH ×4 (08:31→20:35)
[2017-07-22] MEDS: NYSTATIN POWDER 15GM BTL EXT SCH ×2 (08:31→20:35)
[2017-07-22] MEDS: DOCUSATE SODIUM 100 MG CAP PO SCH ×2 (08:31→20:39)
[2017-07-22] MEDS: LACTOBACILLUS ACIDOPHILUS (FLORANEX) TAB PO SCH ×3 (08:32→20:42)
[2017-07-22] MEDS: CHOLECALCIFEROL 1000 INTER.UNIT TAB PO SCH ×2 (08:32→20:41)
[2017-07-22] MEDS: CETIRIZINE HCL 10 MG TAB PO SCH (08:32)
[2017-07-22] MEDS: PRENATAL VITAMIN TAB PO SCH (08:32)
[2017-07-22] MEDS: LITHIUM CARBONATE 450 MG TABCR PO SCH (08:32)
[2017-07-22] MEDS: VENLAFAXINE HCL XR 150 MG CAPXR PO SCH (08:33)
[2017-07-22] MEDS: HYOSCYAMINE SULFATE 0.125 MG SL TAB PO SCH ×3 (08:33→20:36)
[2017-07-22] MEDS: GABAPENTIN 300 MG CAP PO SCH ×2 (08:33→20:42)
[2017-07-22] MEDS: hydrOXYzine HCL 25 MG TAB PO SCH ×2 (08:33→20:37)
[2017-07-22] MEDS: FERROUS GLUCONATE 324 MG TAB PO SCH ×2 (08:33→20:41)
[2017-07-22] MEDS: BENZTROPINE MESYLATE 1 MG TAB PO SCH ×2 (08:33→20:38)
[2017-07-22] MEDS: FAMOTIDINE 20 MG TAB PO SCH (08:34)
[2017-07-22] MEDS: RISPERIDONE 2 MG TAB PO SCH (08:35)
[2017-07-22] MEDS: TOPIRAMATE 100 MG PO SCH ×2 (08:36→20:44)
[2017-07-22] MEDS: CYANOCOBALAMIN 500 MCG TAB (VIT B-12) PO SCH (08:41)
[2017-07-22] MEDS ORDERED: ZYR10 PO ×2 (10:37)
[2017-07-22] MEDS ORDERED: [UNRECOGNIZED DRUG - CODE] IV ×2 (10:37)
[2017-07-22] MEDS ORDERED: EFFSR150 PO ×2 (10:37)
[2017-07-22] MEDS ORDERED: [UNRECOGNIZED DRUG - CODE] IV ×2 (10:37)
[2017-07-22] MEDS ORDERED: POTA-65 PO ×2 (10:37)
[2017-07-22 11:04] VITALS: Ht 119.4 cm; Wt 107.0 kg
[2017-07-22] MEDS: TIGEcycline INJ 50 MG in DEXTROSE 5% 100ML 100 ML IV SCH ×2 (12:46→23:56)
[2017-07-22] MEDS: OXYCODONE HCL IR 5 MG TAB (IMMEDIATE RELEASE) PO PRN (15:33)
[2017-07-22 15:41] VITALS: BP 125/73; PULSE 84; TEMP 36.9; O2SAT 100
[2017-07-22] MEDS: RIVAROXABAN 20 MG TAB PO SCH (17:35)
[2017-07-22] MEDS: RISPERIDONE 1 MG TAB PO SCH (20:37)
[2017-07-22] MEDS: LITHIUM CARBONATE 300 MG TAB PO SCH (20:39)
[2017-07-22] MEDS: MONTELUKAST SOD 10 MG TAB PO SCH (20:42)
--- NOTE | 2017-07-22 23:43 | Hospitalist Progress Note ---
Hospitalist Progress Note Date of Service Jul 22, 2017. Subjective Pt evaluation today including: conversation w/ patient, conversation w/ application security consultant (Infectious disease) Patient feeling great, no abdominal pain. PICC line was placed today. She was to be discharged, but her insurance is not open on the weekends to see about getting her IV antibiotics for at home approved All Other Systems: Reviewed and Negative Objective Vital Signs Date Time Temp Pulse Resp B/P (MAP) Pulse Ox O2 Delivery O2 Flow Rate FiO2 07/22/17 16:00 Room Air 07/22/17 15:41 36.9 84 18 125/73 (90) 100 Room Air 07/22/17 08:30 96 Room Air 07/22/17 07:20 36.5 79 18 110/71 (84) 96 Room Air 07/22/17 00:12 37.0 89 20 105/62 (76) 94 Room Air Physical Exam General Appearance: no apparent distress, + obese Eyes: normal inspection, sclerae normal ENT: hearing grossly normal Neck: trachea midline Respiratory/Chest: lungs clear, normal breath sounds, no respiratory distress, no accessory muscle use Cardiovascular: regular rate, rhythm, no edema, no murmur Abdomen: normal bowel sounds, non tender, soft, + pertinent finding ( Suprapubic catheter in place) Extremities: + pertinent finding (Bilateral BKA's) Neurologic/Psychiatric: alert Skin: normal color, warm/dry Assessment and Plan This patient is a 32yo female with a history of spina bifida, neurogenic bladder with chronic suprapubic catheter, recurrent resistant UTIs, morbid obesity, anxiety disorder, schizoaffective disorder-bipolar type, with psychotic features, asthma, history of PE on Xarelto, here with recurrent resistant UTI- 1. Complicated UTI 2nd to sandoval-resistant pseudomonas & stenotrophamonas from outpatient urine culture zerbaxa & tigecycline. I question if the pseudomonas is truly pathogenic or colonizer as this organism has grown on numerous old urine cultures. However, patient does report she had significant abdominal pain generalized malaise when the infection began Appreciate ID consultation. - PICC line placement today and awaiting approval of home IV antibiotics prior to discharge to home with a total of 7 days of antibiotics-today's day #4/7 A repeat urine cx is thus far growing Pseudomonas and a GNR -awaiting final culture results should be back tomorrow Remains afebrile 2. possible superimposed infection of chronic right thigh wound - culture with corynebacterium, Peptostreptococcus, and Bacteroides-all skin luis. Apparently has had foul odor x 1 week prior to admission. Pictures of wounds look great here-skin species and will not be treated as per ID Appreciate wound care team and replacement of wound vac and continue follow-up once weekly in the wound care clinic 3. neurogenic bladder 2nd to spina bifida with suprapubic catheter in place - exchanged on 07/21 4. morbid obesity - BMI 75 but not likely accurate as her height is likely estimated due to bilateral BKA's 5. spina bifida with paraplegic status 6. asthma - not in exacerbation 7. hypokalemia - resolved. Cut dose of supplement back to 40meq in the morning and 20 mEq in the afternoon. Repeat BMP am shows normal potassium level 8. DVT proph - xarelto but has completed 7-8 months of therapy-patient reports she is likely going to stop it in the future, but is awaiting further evaluation 9. h/o V-P shunt with multiple revisions - noted; mental status is at baseline once again today. 10. RLE pain - oxycodone 5-10mg prn 11. anxiety - psych recommending d/c of clonazepam. 12. bipolar type 1 d/o - psych consult appreciated. They have changed her effexor to 150mg qam. Also recommended stopping clonazepam which has been completed 13. h/o PEs -provoked by combined estrogen/progesterone OCPs, on Xarelto as above 14. hypothyroidism - TSH compensated as of 06/2017; cont synthroid Disposition-likely to home on Monday if IV antibiotics approved
[2017-07-23] MEDS: CEFTOLOZANE IV SCH ×3 (00:38→16:19)
[2017-07-23] MEDS: DEXTROSE 5% IV SCH ×3 (00:38→16:19)
[2017-07-23] MEDS: TAZOBACTAM IV SCH ×3 (00:38→16:19)
[2017-07-23 00:55] VITALS: BP 131/77; PULSE 97; TEMP 36.9; O2SAT 97
[2017-07-23 05:35] LABS: HEMATOCRIT 37.6 % (37-47); MEAN CELL VOLUME 94.9 fL (80-100); MEAN CORPUSCULAR HEMOGLOBIN 30.3 pg (25-34); MEAN CORPUSCULAR HGB CONC 31.9 g/dl (32-36); MEAN PLATELET VOLUME 9.7 fL (7.4-10.4); PLATELET COUNT 230 K/uL (130-400); RED CELL DISTRIBUTION WIDTH CV 14.6 % (11.5-14.5); WHITE BLOOD COUNT 8.52 K/uL (4.8-10.8)
[2017-07-23 06:05] LABS: ALBUMIN 2.6 gm/dl (3.4-5.0); ALKALINE PHOSPHATASE 124 U/L (45-117); ALT/SGPT 20 U/L (12-78); AST/SGOT 11 U/L (15-37); BLOOD UREA NITROGEN 17 mg/dl (7-18); CALCIUM 8.4 mg/dl (8.5-10.1); CARBON DIOXIDE 23 mmol/L (21-32); CREATININE 0.66 mg/dl (0.60-1.20); GLUCOSE 100 mg/dl (70-99); POTASSIUM 3.7 mmol/L (3.5-5.1); SODIUM 138 mmol/L (136-145); TOTAL PROTEIN 6.3 gm/dl (6.4-8.2)
[2017-07-23 06:34] LABS: BASO % 0.6 %; BASO ABS # 0.05 K/uL (0-0.2); EOS % 4.7 %; IG# 0.01 K/uL (0.00-0.02); LYMPH % 14.9 %; LYMPH ABS # 1.27 K/uL (1.2-3.4); MONO % 9.3 %; MONO ABS # 0.79 K/uL (0.11-0.59); NEUT % 70.4 %
[2017-07-23] MEDS: LEVOTHYROXINE 75 MCG TAB PO SCH (06:45)
[2017-07-23] MEDS: LINACLOTIDE 290 MCG CAP PO SCH (06:45)
[2017-07-23 07:03] VITALS: BP 144/76; PULSE 88; TEMP 36.8; O2SAT 94
[2017-07-23] MEDS: DiphenhydrAMINE HCL 50 MG/ML VIAL IV PRN ×2 (07:27→15:33)
[2017-07-23 08:15] VITALS: O2SAT 96
[2017-07-23] MEDS: SUCRALFATE 1 GM/10 ML UDC PO SCH ×3 (08:50→17:00)
[2017-07-23] MEDS: NYSTATIN POWDER 15GM BTL EXT SCH (08:51)
[2017-07-23] MEDS: FLUTICASONE/SALMETEROL (ADVAIR) 500/50 INH 14 PUFF INH SCH (08:51)
[2017-07-23] MEDS: TOPIRAMATE 100 MG PO SCH (08:52)
[2017-07-23] MEDS: BENZTROPINE MESYLATE 1 MG TAB PO SCH (08:53)
[2017-07-23] MEDS: HYOSCYAMINE SULFATE 0.125 MG SL TAB PO SCH ×2 (08:53→14:31)
[2017-07-23] MEDS: FAMOTIDINE 20 MG TAB PO SCH (08:53)
[2017-07-23] MEDS: CYANOCOBALAMIN 500 MCG TAB (VIT B-12) PO SCH (08:53)
[2017-07-23] MEDS: PRENATAL VITAMIN TAB PO SCH (08:53)
[2017-07-23] MEDS: hydrOXYzine HCL 25 MG TAB PO SCH (08:53)
[2017-07-23] MEDS: RISPERIDONE 2 MG TAB PO SCH (08:53)
[2017-07-23] MEDS: LACTOBACILLUS ACIDOPHILUS (FLORANEX) TAB PO SCH ×2 (08:54→14:31)
[2017-07-23] MEDS: GABAPENTIN 300 MG CAP PO SCH (08:54)
[2017-07-23] MEDS: DOCUSATE SODIUM 100 MG CAP PO SCH (08:55)
[2017-07-23] MEDS: VENLAFAXINE HCL XR 150 MG CAPXR PO SCH (08:55)
[2017-07-23] MEDS: SENNA 8.6 MG TAB PO SCH (08:55)
[2017-07-23] MEDS: FERROUS GLUCONATE 324 MG TAB PO SCH (08:55)
[2017-07-23] MEDS: CETIRIZINE HCL 10 MG TAB PO SCH (08:55)
[2017-07-23] MEDS: CHOLECALCIFEROL 1000 INTER.UNIT TAB PO SCH (08:55)
[2017-07-23] MEDS: LITHIUM CARBONATE 450 MG TABCR PO SCH (08:56)
[2017-07-23] MEDS ORDERED: POTASSIUM CHLORIDE 20 MEQ TABCR PO SCH (09:00)
[2017-07-23] MEDS: OXYCODONE HCL IR 5 MG TAB (IMMEDIATE RELEASE) PO PRN (11:22)
[2017-07-23] MEDS: ONDANSETRON INJ 2 MG/ML 2 ML VIAL IV PRN (12:05)
[2017-07-23] MEDS: TIGEcycline INJ 50 MG in DEXTROSE 5% 100ML 100 ML IV SCH (12:05)
[2017-07-23] MEDS: MECLIZINE HCL 25 MG TAB PO PRN (12:05)
[2017-07-23 14:51] VITALS: BP 113/61; PULSE 115; TEMP 37.2; O2SAT 91
--- NOTE | 2017-07-23 14:51 | Discharge Instructions ---
Discharge Instructions Date of Service Jul 23, 2017. Admission Reason for Admission: Complicated Uti Discharge Discharge Diagnosis / Problem: Complicated UTI Discharge Goals Goal(s): Improve disease control, Diagnostic testing, Therapeutic intervention Activity Recommendations Activity Limitations: resume your previous activity . Instructions / Follow-Up Instructions / Follow-Up Please continue the IV antibiotics for 3-4 more days for UTI. Please continue to follow up in the wound care clinic for your thigh wound. You can also follow -up with infectious disease there. Please follow-up with your PCP within 1-2 weeks. Current Hospital Diet Patient's current hospital diet: Regular Diet Discharge Diet Recommended Diet: Regular Diet Pending Studies Studies pending at discharge: no Laboratory Results Last 24 Hours Test 07/23/17 05:09 White Blood Count 8.52 K/uL Red Blood Count 3.96 M/uL Hemoglobin 12.0 g/dL Hematocrit 37.6 % Mean Corpuscular Volume 94.9 fL Mean Corpuscular Hemoglobin 30.3 pg Mean Corpuscular Hemoglobin Concent 31.9 g/dl Platelet Count 230 K/uL Mean Platelet Volume 9.7 fL Neutrophils (%) (Auto) 70.4 % Lymphocytes (%) (Auto) 14.9 % Monocytes (%) (Auto) 9.3 % Eosinophils (%) (Auto) 4.7 % Basophils (%) (Auto) 0.6 % Neutrophils # (Auto) 6.00 K/uL Lymphocytes # (Auto) 1.27 K/uL Monocytes # (Auto) 0.79 K/uL Eosinophils # (Auto) 0.40 K/uL Basophils # (Auto) 0.05 K/uL RDW Standard Deviation 51.0 fL RDW Coefficient of Variation 14.6 % Immature Granulocyte % (Auto) 0.1 % Immature Granulocyte # (Auto) 0.01 K/uL Sodium Level 138 mmol/L Potassium Level 3.7 mmol/L Chloride Level 107 mmol/L Carbon Dioxide Level 23 mmol/L Anion Gap 8.0 mmol/L Blood Urea Nitrogen 17 mg/dl Creatinine 0.66 mg/dl Est Creatinine Clear Calc Drug Dose 102.6 ml/min Estimated GFR () 137.4 Estimated GFR (Non- 118.5 BUN/Creatinine Ratio 25.6 Random Glucose 100 mg/dl Calcium Level 8.4 mg/dl Magnesium Level 2.4 mg/dl Total Bilirubin 0.4 mg/dl Direct Bilirubin < 0.1 mg/dl Aspartate Amino Transf (AST/SGOT) 11 U/L Alanine Aminotransferase (ALT/SGPT) 20 U/L Alkaline Phosphatase 124 U/L Total Protein 6.3 gm/dl Albumin 2.6 gm/dl Medical Emergencies . Who to Call and When: Medical Emergencies: If at any time you feel your situation is an emergency, please call 911 immediately. . Non-Emergent Contact Non-Emergency issues call your: Primary Care Provider, Specialist (Infectious disease) Call Non-Emergent contact if: temperature is above 101, your pain is not controlled, your pain is worsening, your pain is unusual for you, your pain is concerning you, wound has increased drainage, wound has increased redness, wound has increased pain, you have any medication questions . . "Provider Documentation" section prepared by Cheryle Masterson. . VTE Core Measure Inpt VTE Proph given/why not?: Other Anticoagulation
--- NOTE | 2017-07-23 15:13 | Discharge Summary ---
Discharge Summary Date of Service Jul 23, 2017. Discharge Summary Admission Date: Jul 18, 2017 at 18:29 Discharge Date: Jul 23, 2017 Discharge Disposition: Home with services Principal Diagnosis: Complicated UTI Problems/Secondary Diagnoses: Spina bifida w/ paraplegic status Neurogenic bladder with chronic suprapubic catheter Recurrent resistant UTIs morbid obesity anxiety disorder schizoaffective disorder-bipolar type, with psychotic features asthma history of PE on Xarelto chronic right thigh wound hypokalemia h/o V-P shunt with multiple revisions Hypothyroidism Immunizations: Have You Had Influenza Vaccine: Unknown History of Tetanus Vaccine?: Unknown History of Pneumococcal: Unknown History of Hepatitis B Vaccine: Unknown Procedures: PICC line placement CXR Consultations: Infectious Disease Medication Reconciliation New Medications: Ceftolozane Sulfate-Tazobactam (Zerbaxa 1-0.5 gm) 1 Inj Inj 1.5 GM IV Q8 for 4 Days Tigecycline (Tygacil) 50 Mg Inj 50 MG IV Q12 for 4 Days Cetirizine HCl (All Day Allergy) 10 Mg Tab 10 MG PO DAILY for 30 Days, #30 TAB Venlafaxine Hcl (Effexor Extended Rel) 150 Mg Capcr 150 MG PO QAM for 30 Days, #30 CAP Changed Medications: Potassium Chloride (Potassium Chloride ER) 20 Meq Tab 40 MEQ PO QAM for 30 Days, #60 TAB (Changed from: 20 MEQ; BID) AND 20mg qPM Continued Medications: Albuterol Sulfate (Proair Respiclick) 108 Mcg/Act Aer 2 PUFFS INH TID PRN for SOB/Wheezing Benztropine Mesylate (Benztropine Mesylate) 1 Mg Tab 1 MG PO BID Cholecalciferol (Vitamin D) 2,000 Unit Cap 2000 INTER.UNIT PO BID Cyanocobalamin (Vitamin B-12) 500 Mcg Tab 500 MCG PO DAILY Docusate Sodium (Colace) 100 Mg Cap 100 MG PO BID Famotidine (Pepcid) 40 Mg Tab 40 MG PO DAILY Ferrous Sulfate (Ferrous Sulfate) 325 Mg Tab 325 MG PO BID Fluticasone Prop/Salmeterol (Advair Diskus 500/50 60 Dose) 1 Ea Aerp 1 PUFF INH BID, INHALER Gabapentin (Gabapentin) 300 Mg Cap 300 MG PO BID Hydroxyzine HCl (Hydroxyzine Pamoate) 25 Mg Tab 50 MG PO HS Hydroxyzine HCl (Hydroxyzine HCl) 25 Mg Tab 25 MG PO QAM Hyoscyamine Sulfate (Levsin) 0.125 Mg Tab 0.125 MG PO TID Levalbuterol (Levalbuterol HCl) 0.63 Mg/3 Ml Nebu 3 ML NEB Q4H PRN for Shortness of Breath Levothyroxine Sodium (Levothyroxine Sodium) 75 Mcg Tab 75 MCG PO QAM TAKE THIS MEDICATION ONCE DAILY 30 MINUTES BEFORE BREAKFAST OR ANY OTHER MEDICATION Linaclotide (Linzess) 290 Mcg Cap 290 MCG PO QAM [place] Carbonate ([place] Carbonate) 600 Mg Cap 600 MG PO QPM, CAP TAKE THIS MEDICATION WITH EVENING MEAL [place] Carbonate Er (Lithobid Ext Rel) 450 Mg Tab 450 MG PO QAM Meclizine Hcl (Meclizine Hcl) 25 Mg Tab 25 MG PO TID PRN for Dizziness or Vertigo, TAB Menthol-Zinc Oxide (Calmoseptine) 1 Oin Oin 1 APPLN TOP DAILY PRN for Skin Irritation Montelukast Sod (Montelukast Sodium) 10 Mg Tab 10 MG PO HS Multiple Vitamin (Multivitamin) 1 Tab Tab 1 TAB PO DAILY, TAB Nystatin (Topical) (Nystop) 100,000 Unit/Gm Pow 1 APPLN TOP UD Ondasetron Odt (Zofran Odt) 4 Mg Tab 4 MG SL Q8 PRN for Nausea, TAB Oxycodone HCl (Oxycodone HCl) 5 Mg Tab 5-10 MG PO Q8 PRN for Pain Pantoprazole (Pantoprazole Sodium) 40 Mg Tab 40 MG PO DAILY Polyethylene Glycol 3350 (Miralax) 1 Pow Pow 17 GM PO DAILY PRN for Constipation Probiotic Product (Probiotic) 1 Cap Cap 1 CAP PO TID Risperidone (Risperdal) 2 Mg Tab 2 MG PO QAM, TAB Risperidone (Risperidone) 2 Mg Tab 3 MG PO HS Rivaroxaban (Xarelto) 20 Mg Tab 20 MG PO DAILY Senna (Senokot) 8.6 Mg Tab 8.6 MG PO BID Sennosides (Senna Lax) 8.6 Mg Tab 17.2 MG PO DAILY Sucralfate (Carafate) 1 Gm/10 Ml Gloria 10 ML PO QID Topiramate (Qudexy Xr) 100 Mg Cap 100 MG PO BID Wound Dressings (Hydrofera Blue Foam Dress) 1 Pad Pad 1 EA EXT UD 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 Discontinued Medications: Ondansetron (Ondansetron Hcl) 2 Mg/Ml Inj 4 MG IV Q6H PRN for Nausea, EA Venlafaxine Hcl (Effexor Extended Rel) 75 Mg Capcr 75 MG PO DAILY Discharge Exam Pt feeling well. Has developed a little bit of a nonproductive cough but afebrile, no abd pain. Physical Exam Vitals reviewed General Appearance: no apparent distress, + obese Eyes: normal inspection, sclerae normal ENT: hearing grossly normal Neck: trachea midline Respiratory/Chest: lungs clear, normal breath sounds, no respiratory distress, no accessory muscle use Cardiovascular: regular rate, rhythm, no edema, no murmur Abdomen: normal bowel sounds, non tender, soft, + pertinent finding ( Suprapubic catheter in place) Extremities: + pertinent finding (Bilateral BKA's), wound vac in place posterior rt thigh, RUE with PICC line in place without surrounding erythema Neurologic/Psychiatric: alert Skin: normal color, warm/dry Review of Systems: Constitutional: No fever Eyes: No problem reported ENT: No problem reported Respiratory: + cough, No sputum, No wheezing Cardiovascular: No problem reported Abdomen: No problem reported Musculoskeletal: No problem reported Genitourinary - Female: No problem reported Neurologic: No problem reported Psychiatric: No problem reported Endocrine: No problem reported Hematologic / Lymphatic: No problem reported Integumentary: No problem reported Hospital Course This patient is a 32yo female with a history of spina bifida, neurogenic bladder with chronic suprapubic catheter, recurrent resistant UTIs, morbid obesity, anxiety disorder, schizoaffective disorder-bipolar type, with psychotic features, asthma, history of PE on Xarelto, here with recurrent resistant UTI- 1. Complicated UTI 2nd to sandoval-resistant pseudomonas & stenotrophamonas from outpatient urine culture zerbaxa & tigecycline. I question if the pseudomonas is truly pathogenic or colonizer as this organism has grown on numerous old urine cultures. However, patient does report she had significant abdominal pain generalized malaise when the infection began Appreciate ID consultation. - PICC line placed and will go home with IV antibiotics for a total of 7 days of antibiotics-today's day #5/7 A repeat urine cx is again growing Pseudomonas and Stenotrophomonas Remains afebrile f/u with ID this week May want to leave PICC line in until has port-a-cath removed/replaced for improved access-discussed risks vs benefits and advised she discuss further with ID at her f/u visit 2. Suspected but ruled out superimposed infection of chronic right thigh wound - culture with corynebacterium, Peptostreptococcus, and Bacteroides-all skin luis. Apparently has had foul odor x 1 week prior to admission. Pictures of wounds look great here-skin species and will not be treated as per ID Appreciate wound care team and replacement of wound vac and continue follow-up once weekly in the wound care clinic 3. neurogenic bladder 2nd to spina bifida with suprapubic catheter in place - exchanged on 07/21 4. morbid obesity - BMI 75 but not likely accurate as her height is likely estimated due to bilateral BKA's 5. spina bifida with paraplegic status 6. asthma - not in exacerbation 7. hypokalemia - resolved. Cut dose of supplement back to 40meq in the morning and 20 mEq in the afternoon. Repeat BMP am shows normal potassium level 8. DVT proph - xarelto but has completed 7-8 months of therapy-patient reports she is likely going to stop it in the future, but is awaiting further evaluation 9. h/o V-P shunt with multiple revisions - noted; mental status is at baseline once again today. 10. RLE pain - oxycodone 5-10mg prn 11. anxiety - psych recommending d/c of clonazepam. 12. bipolar type 1 d/o - psych consult appreciated. They have changed her effexor to 150mg qam. Also recommended stopping clonazepam which has been completed 13. h/o PEs -provoked by combined estrogen/progesterone OCPs, on Xarelto as above 14. hypothyroidism - TSH compensated as of 06/2017; cont synthroid Disposition-stable for dc to home today Total Time Spent: Greater than 30 minutes This includes examination of the patient, discharge planning, medication reconciliation, and communication with other providers. Discharge Instructions Please refer to the electronic Patient Visit Report (Discharge Instructions) for additional information. Follow-Up PCP within 1-2 weeks ID in 3-4 days Additional Copies To Gela Boone M.D.; Sourav Sauceda MD
[2017-07-23] MEDS: RIVAROXABAN 20 MG TAB PO SCH (17:02)
[2017-07-23 17:14] VITALS: BP 113/61; PULSE 115; TEMP 37.2; O2SAT 91
== END 2017-07-23 18:20 | disposition home or self-care (01) | DRG 699 ==
LOC: C.EDB 14:14 → C.MS2W 18:29 → UNDOADMIN 18:29 → ENRESERV 19:02
PROVIDERS: ADMIT Internal Medicine; ATTEND Family Medicine
DX: T83.511A Infection and inflammatory reaction due to indwelling urethral catheter, initial encounter (principal); Z68.45 Body mass index [BMI] 70 or greater, adult; B37.2 Candidiasis of skin and nail; Q05.9 Spina bifida, unspecified; N39.0 Urinary tract infection, site not specified; J45.909 Unspecified asthma, uncomplicated; K21.9 Gastro-esophageal reflux disease without esophagitis; E03.9 Hypothyroidism, unspecified; F41.9 Anxiety disorder, unspecified; Z91.040 Latex allergy status; E87.6 Hypokalemia; Z99.3 Dependence on wheelchair; E66.01 Morbid (severe) obesity due to excess calories; F31.9 Bipolar disorder, unspecified; S71.101D Unspecified open wound, right thigh, subsequent encounter; N31.9 Neuromuscular dysfunction of bladder, unspecified; F25.0 Schizoaffective disorder, bipolar type; Z86.711 Personal history of pulmonary embolism; Z86.14 Personal history of Methicillin resistant Staphylococcus aureus infection; Z87.440 Personal history of urinary (tract) infections; Z89.512 Acquired absence of left leg below knee; Z88.2 Allergy status to sulfonamides; Z89.511 Acquired absence of right leg below knee; Z80.9 Family history of malignant neoplasm, unspecified; Z88.8 Allergy status to other drugs, medicaments and biological substances; Z83.3 Family history of diabetes mellitus; Z83.6 Family history of other diseases of the respiratory system

== ENCOUNTER → 2017-07-26 | Outpatient (CLI) | payer BC, OTHER ==
[~2017-07-26] MED LIST changes: +ALBU18002 INH; +ATR25 PO; +BENZ-88 PO; +CRFL PO; +EFFSR150 PO; +FAMO40TA6 PO; +FERR1TAB62 PO; +GABA-1219 PO; +HYOS1TAB PO; +LEVO75TA5 PO; +LINA1CAP2 PO; +LITH1TAB PO; +LITH600C PO; +MENTOIN TOP; +MISCCAP80 PO; +MTR500 PO; +MULTTAB58 PO; +NYST100010 TOP; +ONDA4TAB10 SL; +OXYC-609 PO; +PANT40TA2 PO; +POTA-65 PO; +RISP2TAB22 PO; +RSP2 PO; +SENN1TAB80 PO; +SNG10 PO; +VST25HP PO; +VTMB12 PO; +XPNINS NEB; +XRL20 PO; +ZYR10 PO; +[UNRECOGNIZED DRUG - CODE] IV; +[UNRECOGNIZED DRUG - CODE] IV
[2017-07-26 12:04] LABS: HEMATOCRIT 38.5 % (37-47); MEAN CELL VOLUME 95.3 fL (80-100); MEAN CORPUSCULAR HEMOGLOBIN 29.7 pg (25-34); MEAN CORPUSCULAR HGB CONC 31.2 g/dl (32-36); PLATELET COUNT 215 K/uL (130-400); RED CELL DISTRIBUTION WIDTH CV 14.7 % (11.5-14.5); RED CELL DISTRIBUTION WIDTH SD 51.8 fL (36.4-46.3); WHITE BLOOD COUNT 4.57 K/uL (4.8-10.8)
[2017-07-26 12:19] LABS: ALBUMIN 2.5 gm/dl (3.4-5.0); BLOOD UREA NITROGEN 17 mg/dl (7-18); CALCIUM 8.3 mg/dl (8.5-10.1); CARBON DIOXIDE 22 mmol/L (21-32); CREATININE 0.73 mg/dl (0.60-1.20); GLUCOSE 94 mg/dl (70-99); POTASSIUM 3.4 mmol/L (3.5-5.1); SODIUM 142 mmol/L (136-145)
[2017-07-26 12:22] LABS: ALKALINE PHOSPHATASE 149 U/L (45-117); ALT/SGPT 27 U/L (12-78); AST/SGOT 18 U/L (15-37); TOTAL PROTEIN 6.3 gm/dl (6.4-8.2)
== END | disposition home or self-care (01) ==
LOC: C.LABSPEC 11:34
PROVIDERS: ATTEND Internal Medicine Infectious Disease
DX: T83.511D Infection and inflammatory reaction due to indwelling urethral catheter, subsequent encounter (principal); N39.0 Urinary tract infection, site not specified; Q05.9 Spina bifida, unspecified

== ENCOUNTER → 2017-08-01 | Outpatient (CLI) | payer BC, OTHER ==
[~2017-08-01] MED LIST changes: -EFFSR75 PO; +MCRK/20 PO; -MTR500 PO; -PANT40TA PO; -RISP3TAB12 PO; +VENL150C PO; -ZFRI4 IV; -[UNRECOGNIZED DRUG - CODE] IV; -[UNRECOGNIZED DRUG - CODE] IV
[2017-08-01 17:50] LABS: BASO % 0.7 %; BASO ABS # 0.04 K/uL (0-0.2); EOS % 6.7 %; EOS ABS # 0.37 K/uL (0-0.5); HEMATOCRIT 42.1 % (37-47); HEMOGLOBIN 13.1 g/dL (12.0-16.0); IG# 0.01 K/uL (0.00-0.02); LYMPH % 34.2 %; LYMPH ABS # 1.88 K/uL (1.2-3.4); MEAN CELL VOLUME 97.2 fL (80-100); MEAN CORPUSCULAR HEMOGLOBIN 30.3 pg (25-34); MEAN CORPUSCULAR HGB CONC 31.1 g/dl (32-36); MEAN PLATELET VOLUME 10.8 fL (7.4-10.4); MONO % 7.6 %; MONO ABS # 0.42 K/uL (0.11-0.59); NEUT % 50.6 %; NEUT ABS # 2.78 K/uL (1.4-6.5); PLATELET COUNT 227 K/uL (130-400); RED CELL DISTRIBUTION WIDTH CV 14.9 % (11.5-14.5); RED CELL DISTRIBUTION WIDTH SD 53.6 fL (36.4-46.3)
[2017-08-01 18:24] LABS: ALBUMIN 2.8 gm/dl (3.4-5.0); ALKALINE PHOSPHATASE 131 U/L (45-117); ALT/SGPT 26 U/L (12-78); AST/SGOT 17 U/L (15-37); BLOOD UREA NITROGEN 12 mg/dl (7-18); CARBON DIOXIDE 24 mmol/L (21-32); CREATININE 0.86 mg/dl (0.60-1.20); GLUCOSE 114 mg/dl (70-99); POTASSIUM 3.5 mmol/L (3.5-5.1); SODIUM 139 mmol/L (136-145); TOTAL PROTEIN 7.5 gm/dl (6.4-8.2)
== END | disposition home or self-care (01) ==
LOC: C.LABBFT 14:03
PROVIDERS: ATTEND Internal Medicine
DX: E03.9 Hypothyroidism, unspecified (principal); E87.6 Hypokalemia; E83.42 Hypomagnesemia; N39.0 Urinary tract infection, site not specified

== ENCOUNTER 2017-08-07 15:59 | Emergency (ER) | payer BC, OTHER ==
[~2017-08-07] VITALS: Ht 119.4 cm; Wt 107.0 kg
[~2017-08-07 15:59] MED LIST changes: -MCRK/20 PO; -VENL150C PO
[2017-08-07 16:18] VITALS: TEMP 36.8; Ht 119.4 cm; Wt 107.0 kg
[2017-08-07] MEDS ORDERED: SODIUM CHLORIDE 0.9% 1000ML 1,000 ML IV STA (17:41)
--- NOTE | 2017-08-07 17:41 | EMERGENCY ROOM VISIT NOTE ---
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 The headache has been constant and progressively getting worse, involving her whole head, throbbing and stabbing, 03/14. States this feels like a "shunt headache." Follows with [facility] neurosurgery and spina bifida clinic. She states that she had Botox injections on 07/28 for chronic headache management, she is concerned that they may have caused a problem with the shunt. She states she has been taking Tylenol with no relief, no other meds attempted for pain. Has associated blurred vision that is a little worse from baseline, but not unusual for her. Denies nausea or vomiting. Has recently had URI symptoms with a cough, but no fever or chills, and her mother is sick with similar symptoms. She denies any neck pain, chest pain, shortness of breath, dizziness or syncope, abdominal pain, diarrhea, urinary symptoms, or rash. She states that she was recently treated for UTI, and just completed treatment for a wound infection of her leg. REVIEW OF SYSTEMS: A complete 10 point review of systems was reviewed with the patient with pertinent positives and negatives as per history of present illness. All else were negative. PAST MEDICAL HISTORY: Reviewed in the chart. SOCIAL HISTORY: Lives at home with family. She is not a smoker. ALLERGIES: Reviewed in the chart. PHYSICAL EXAM: CONSTITUTIONAL: Pleasant and cooperative. No acute distress. Obese, bilateral amputee and wheelchair-bound. Mildly dehydrated, but otherwise well appearing and well nourished. HEENT: Normocephalic, atraumatic. Pupils equal, round and reactive to light, EOMI. TMs normal. Pharynx normal. Tacky mucous membranes. NECK: Supple, full active range of motion without discomfort. RESPIRATORY: Clear to auscultation bilaterally with no wheezing, crackles, rhonchi or stridor. Equal expansion bilaterally. CARDIOVASCULAR: Regular rate and rhythm with no murmurs, rubs or gallops. Normal peripheral perfusion. No edema. GASTROINTESTINAL: Soft, nontender, nondistended. No palpable masses or HSM. Bowel sounds present in all quadrants. MUSCULOSKELETAL: Full range of motion of all joints without discomfort. INTEGUMENTARY: No rash or other significant dermatologic conditions noted. NEUROLOGIC: Alert and oriented X 4 with normal affect. Cranial nerves II-XII grossly intact, no facial droop. Negative pronator drift. No focal neurologic deficits noted. Normal strength and sensation in extremities. Normal speech. ED COURSE AND MEDICAL DECISION MAKING: CC: Patient presenting with complaint of headache DIFFERENTIAL DIAGNOSIS: Includes, but not limited to MARKETING WRITER shunt malformation, hydrocephalus, acute intracranial bleed, meningitis, encephalitis, mass or mass effect, sinusitis, infection, tumor, headache, migraine, among others. INTERPRETATION OF LABS: No leukocytosis, no anemia, no significant electrolyte abnormalities, normal renal function, normal liver enzymes. UA appears to be contaminated, will send for culture for confirmation. Negative urine . IMAGING: HEAD WITHOUT CONTRAST (CT) CT DOSE: 1305.31 mGy.cm HISTORY: eval MARKETING WRITER shunt TECHNIQUE: Multiaxial CT images of the head were performed without the use of intravenous contrast. A dose lowering technique was utilized adhering to the principles of ALARA. Comparison: 06/10/2017 Findings: Moderate mucosal thickening and fluid within the maxillary and ethmoid sinuses. Shunt catheter remains within the right lateral ventricular system. No evidence for hydrocephalus. Parenchymal density characteristics show no acute process. Impression: 1. No acute intracranial abnormality. 2. The shunt catheter appears to be in good position and is unchanged. 3. Interval development of sinusitis involving the maxillary and ethmoid regions. ----- Patient x-ray series was performed with images of the skull, soft tissue neck, chest and abdomen. These were reviewed by myself and radiologist, there is no evidence of kinking or malfunction of the shunt, and it appears to be in a good position by my interpretation. MEDICATION RECONCILIATION: I attest that I have personally reviewed the patient 's current medication list. INITIAL VITAL SIGNS REVIEW: I reviewed the patient's initial vital signs and interpret them as follows: T: Afebrile; BP: Normotensive; HR: Within normal limits; RR: Within normal limits; Pulse Ox: Within normal limits on room air. Blood pressure screening: The patient was found to have normal blood pressure on screening and does not require follow-up for repeat blood pressure check. SUMMARY: Patient was evaluated at bedside, history and physical exam performed. Patient is alert and oriented, in no acute distress, resting calmly in her wheelchair. Neurologic exam is intact with no focal deficits. Patient is her baseline cognitive function per mother. I did review the patient's chart, as well as documentation provided by her mother. She most recently had her MARKETING WRITER shunt adjusted in May 2017. Orders were placed at bedside for labs, urinalysis, IV fluids for hydration, Zofran and oxycodone for headache, shunt series and head CT to evaluate for MARKETING WRITER shunt malformation. Patient discussed with Dr. Lyman, who agrees with my assessment and plan. Labs and imaging reviewed as above, the patient appears to be normal with no sign of hydrocephalus or shunt dysfunction. Note is made of minimal infiltrative/atelectatic change left base on chest x-ray , patient states she has had a cough but no fevers or chills, SOB or chest pain. Note is also made of sinusitis on head CT. Patient denies any nasal congestion or drainage, or tenderness of the sinuses. Will hold off on treating the sinusitis for now and she was encouraged to follow closely with her primary care provider regarding this. Patient reassessed multiple times throughout ED stay, she reports her nausea is gone and she has some improvement after the oxycodone. She is requesting something more for her headache. The patient was given IV Dilaudid, which brought her headache down to a 6/10 and she appears much more comfortable. She is requesting something to eat, she was provided with a box lunch, which she is tolerating well. Patient was updated on all results and plan for discharge, she was encouraged to follow-up with her headache specialist regarding ongoing management. Patient was also given strict return precautions should her symptoms worsen, she verbalized understanding. Patient was discharged home in stable condition and ambulatory. Problem List Medical Problems: (1) Anxiety Status: Chronic (2) Asthma Status: Chronic (3) Gastroparesis Status: Chronic (4) GERD (gastroesophageal reflux disease) Status: Chronic (5) Hydrocephalus Status: Chronic (6) MRSA (methicillin resistant Staphylococcus aureus) Status: Resolved (7) Osteomyelitis Status: Resolved (8) Schizoaffective disorder, bipolar type Status: Chronic (9) Spina bifida Permanent Comment: Status: Chronic Current/Historical Medications Scheduled Benztropine Mesylate (Benztropine Mesylate), 1 MG PO BID Cholecalciferol (Vitamin D), 2,000 INTER.UNIT PO BID Cyanocobalamin (Vitamin B-12), 500 MCG PO DAILY Docusate Sodium (Colace), 100 MG PO BID Famotidine (Pepcid), 40 MG PO DAILY Ferrous Sulfate (Ferrous Sulfate), 325 MG PO BID Fluticasone Prop/Salmeterol (Advair Diskus 500/50 60 Dose), 1 PUFF INH BID Gabapentin (Gabapentin), 300 MG PO BID Hydroxyzine HCl (Hydroxyzine Pamoate), 50 MG PO HS Hydroxyzine HCl (Hydroxyzine HCl), 25 MG PO QAM Hyoscyamine Sulfate (Levsin), 0.125 MG PO TID Levothyroxine Sodium (Levothyroxine Sodium), 75 MCG PO QAM Linaclotide (Linzess), 290 MCG PO QAM Goodman Carbonate (Goodman Carbonate), 600 MG PO QPM Goodman Carbonate Er (Lithobid Ext Rel), 450 MG PO QAM Montelukast Sod (Montelukast Sodium), 10 MG PO HS Multiple Vitamin (Multivitamin), 1 TAB PO DAILY Nystatin (Topical) (Nystop), 1 APPLN TOP UD Pantoprazole (Pantoprazole Sodium), 40 MG PO DAILY Potassium Chloride (Potassium Chloride ER), 40 MEQ PO AMPM Probiotic Product (Probiotic), 1 CAP PO TID Risperidone (Risperdal), 2 MG PO QAM Risperidone (Risperidone), 3 MG PO HS Senna (Senokot), 8.6 MG PO BID Sucralfate (Carafate), 10 ML PO QID Topiramate (Qudexy Xr), 100 MG PO BID Venlafaxine Hcl (Effexor Xr), 150 MG PO QAM Scheduled PRN Albuterol Sulfate (Proair Respiclick), 2 PUFFS INH TID PRN for SOB/Wheezing Levalbuterol (Levalbuterol HCl), 3 ML NEB Q4H PRN for Shortness of Breath Meclizine Hcl (Meclizine Hcl), 25 MG PO TID PRN for Dizziness or Vertigo Menthol-Zinc Oxide (Calmoseptine), 1 APPLN TOP DAILY PRN for Skin Irritation Ondasetron Odt (Zofran Odt), 4 MG SL Q8 PRN for Nausea Oxycodone HCl (Oxycodone HCl), 5-10 MG PO Q8 PRN for Pain Polyethylene Glycol 3350 (Miralax), 17 GM PO DAILY PRN for Constipation Allergies Coded Allergies: Adhesives (Verified Allergy, Intermediate, TAPE- HIVES, 06/30/17) Ceftriaxone (Verified Allergy, Intermediate, rash, 07/18/17) Has tolerated cefepime and Zerbaxa Chlorhexidine (Verified Allergy, Intermediate, RASH, 06/30/17) Ciprofloxacin (Verified Allergy, Intermediate, hives, 06/30/17) Imipenem (Verified Allergy, Intermediate, PT REPORTS ITCHING, 06/30/17) Latex (Verified Allergy, Intermediate, hives, 06/30/17) Levofloxacin (Verified Allergy, Intermediate, rash, 06/30/17) Linezolid (Verified Allergy, Intermediate, rash, 06/30/17) Piperacillin (Verified Allergy, Intermediate, SEVERE RASH, HIVES, 06/30/17) Tazobactam (Verified Allergy, Intermediate, SEVERE RASH, HIVES, 06/30/17) Vancomycin (Verified Allergy, Intermediate, rash, 06/30/17) Tobramycin (Verified Allergy, Mild, MILD RASH ON ARM, RED FACE, 06/30/17) IMPROVED AFTER BENADRYL, TAKING REST OF DOSE Amikacin (Verified Allergy, Unknown, PER DR ROBINS,RXN WAS TO ZOSYN NOT AMKrash;hives, 06/30/17) Sulfamethoxazole w/Trimethoprim (Verified Allergy, Unknown, Hives, 06/30/17 ) Can be pretreated with 10mg Zytrec 45 min prior to admin Vital Signs Date Time Temp Pulse Resp B/P (MAP) Pulse Ox O2 Delivery O2 Flow Rate FiO2 08/07/17 22:51 96 18 111/59 93 08/07/17 21:54 99 18 130/70 95 Room Air 08/07/17 20:00 81 18 110/71 98 Room Air 08/07/17 18:15 89 18 122/75 96 Room Air 08/07/17 16:18 36.8 87 16 122/70 97 Room Air Laboratory Results 08/07/17 18:45 Red Blood Count 4.55, Mean Corpuscular Volume 95.8, Mean Corpuscular Hemoglobin 30.5, Mean Corpuscular Hemoglobin Concent 31.9, Mean Platelet Volume 10.0, Neutrophils (%) (Auto) 68.7, Lymphocytes (%) (Auto) 20.6, Monocytes (%) (Auto) 6.4, Eosinophils (%) (Auto) 3.6, Basophils (%) (Auto) 0.4, Neutrophils # (Auto) 6.96, Lymphocytes # (Auto) 2.09, Monocytes # (Auto) 0.65, Eosinophils # (Auto) 0.36, Basophils # (Auto) 0.04 08/07/17 18:45 08/07/17 19:56 Test 08/07/17 18:45 08/07/17 19:56 White Blood Count 10.13 K/uL (4.8-10.8) Red Blood Count 4.55 M/uL (4.2-5.4) Hemoglobin 13.9 g/dL (12.0-16.0) Hematocrit 43.6 % (37-47) Mean Corpuscular Volume 95.8 fL (80-100) Mean Corpuscular Hemoglobin 30.5 pg (25-34) Mean Corpuscular Hemoglobin Concent 31.9 g/dl (32-36) Platelet Count 294 K/uL (130-400) Mean Platelet Volume 10.0 fL (7.4-10.4) Neutrophils (%) (Auto) 68.7 % Lymphocytes (%) (Auto) 20.6 % Monocytes (%) (Auto) 6.4 % Eosinophils (%) (Auto) 3.6 % Basophils (%) (Auto) 0.4 % Neutrophils # (Auto) 6.96 K/uL (1.4-6.5) Lymphocytes # (Auto) 2.09 K/uL (1.2-3.4) Monocytes # (Auto) 0.65 K/uL (0.11-0.59) Eosinophils # (Auto) 0.36 K/uL (0-0.5) Basophils # (Auto) 0.04 K/uL (0-0.2) RDW Standard Deviation 52.2 fL (36.4-46.3) RDW Coefficient of Variation 14.9 % (11.5-14.5) Immature Granulocyte % (Auto) 0.3 % Immature Granulocyte # (Auto) 0.03 K/uL (0.00-0.02) Urine Color YELLOW Urine Appearance CLOUDY (CLEAR) Urine pH 5.0 (4.5-7.5) Urine Specific Hilbert 1.019 (1.000-1.030) Urine Protein NEG (NEG) Urine Glucose (UA) NEG (NEG) Urine Ketones NEG (NEG) Urine Occult Blood 1+ (NEG) Urine Nitrite NEG (NEG) Urine Bilirubin NEG (NEG) Urine Urobilinogen NEG (NEG) Urine Leukocyte Esterase MODERATE (NEG) Urine WBC (Auto) >30 /hpf (0-5) Urine RBC (Auto) 10-30 /hpf (0-4) Urine Hyaline Casts (Auto) 10-30 /lpf (0-5) Urine Epithelial Cells (Auto) >30 /lpf (0-5) Urine Bacteria (Auto) NEG (NEG) Urine Yeast (Auto) PRESENT (NONE PRSENT) Urine Test NEG (NEG) Anion Gap 6.0 mmol/L (3-11) Est Creatinine Clear Calc Drug Dose 91.6 ml/min Estimated GFR () 126.0 Estimated GFR (Non- 108.7 BUN/Creatinine Ratio 15.6 (10-20) Calcium Level 9.0 mg/dl (8.5-10.1) Total Bilirubin 0.4 mg/dl (0.2-1) Alanine Aminotransferase (ALT/SGPT) 41 U/L (12-78) Alkaline Phosphatase 118 U/L (45-117) Total Protein 8.6 gm/dl (6.4-8.2) Albumin 3.2 gm/dl (3.4-5.0) Globulin 5.4 gm/dl (2.5-4.0) Albumin/Globulin Ratio 0.6 (0.9-2) Aspartate Amino Transf (AST/SGOT) 15 U/L (15-37) Medications Administered Medications (Trade) Dose Ordered Sig/Brenna Route Start Time Stop Time Status Last Admin Dose Admin Sodium Chloride 1,000 ml @ 999 mls/hr Q1H1M STAT IV 08/07/17 17:41 08/07/17 18:41 DC 08/07/17 18:57 999 MLS/HR Ondansetron HCl (Zofran Odt) 4 mg ONE ONCE PO 08/07/17 20:30 08/07/17 20:31 DC 08/07/17 20:43 4 MG Oxycodone HCl (Roxicodone Immediate Rel Tab) 5 mg NOW STAT PO 08/07/17 20:23 08/07/17 20:25 DC 08/07/17 20:43 5 MG Hydromorphone HCl (Dilaudid Inj) 1 mg NOW STAT IV 08/07/17 21:30 08/07/17 21:32 DC 08/07/17 21:52 1 MG Departure Information Impression Primary Impression: Headache Dispostion Home / Self-Care Condition GOOD Referrals No Doctor, Assigned (PCP) Patient Instructions ED Headache Migraine, My [facility] Additional Instructions You were evaluated and treated in the emergency department today for your headache. CT and x-ray imaging showed that your MARKETING WRITER shunt appears to be working properly. DO NOT drive, drink alcohol, operate machinery, or perform dangerous activities today. You were given medications in the ER that can affect your ability to safely function or operate a vehicle. Rest today in a quiet, peaceful, dark environment and get a full 8-10 hrs of sleep tonight. Avoid loud noises, smoke/smoking, alcohol, bright lights, stress, or physical exertion today to minimize the chance the headache may return. Continue your current medications as prescribed. Acetaminophen(Tylenol) may be used for headaches. Use 1000mg every 8 hours as needed. Avoid using more than 3000 mg in a 24 hour period. Return to the ER for passing out, worsening headache, vision problems, neck stiffness/pain, fevers, vomiting, worsening of your condition, or as needed. Follow up with your primary care provider in 2-3 days for a recheck of your current condition. Call your doctors in [place] and at [place] to follow up regarding your headaches. Problem Qualifiers Primary Impression: Headache Headache type: unspecified Headache chronicity pattern: unspecified pattern Intractability: not intractable Qualified Codes: R51 - Headache
[2017-08-07] MEDS ORDERED: MCRK/20 PO (18:21)
[2017-08-07] MEDS ORDERED: VENL150C PO (18:25)
[2017-08-07 19:02] LABS: BASO % 0.4 %; BASO ABS # 0.04 K/uL (0-0.2); EOS % 3.6 %; EOS ABS # 0.36 K/uL (0-0.5); HEMATOCRIT 43.6 % (37-47); HEMOGLOBIN 13.9 g/dL (12.0-16.0); IG# 0.03 K/uL (0.00-0.02); LYMPH % 20.6 %; LYMPH ABS # 2.09 K/uL (1.2-3.4); MEAN CELL VOLUME 95.8 fL (80-100); MEAN CORPUSCULAR HEMOGLOBIN 30.5 pg (25-34); MEAN CORPUSCULAR HGB CONC 31.9 g/dl (32-36); MONO % 6.4 %; MONO ABS # 0.65 K/uL (0.11-0.59); NEUT % 68.7 %; NEUT ABS # 6.96 K/uL (1.4-6.5); PLATELET COUNT 294 K/uL (130-400); RED CELL DISTRIBUTION WIDTH CV 14.9 % (11.5-14.5); RED CELL DISTRIBUTION WIDTH SD 52.2 fL (36.4-46.3); WHITE BLOOD COUNT 10.13 K/uL (4.8-10.8)
[2017-08-07 19:32] LABS: ALBUMIN 3.2 gm/dl (3.4-5.0); CREATININE 0.74 mg/dl (0.60-1.20); TOTAL PROTEIN 8.6 gm/dl (6.4-8.2)
--- NOTE | 2017-08-07 19:34 | DIAGNOSTIC IMAGING REPORT ---
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 A dose lowering technique was utilized adhering to the principles of ALARA. Comparison: 06/10/2017 Findings: Moderate mucosal thickening and fluid within the maxillary and ethmoid sinuses. Shunt catheter remains within the right lateral ventricular system. No evidence for hydrocephalus. Parenchymal density characteristics show no acute process. Impression: 1. No acute intracranial abnormality. 2. The shunt catheter appears to be in good position and is unchanged. 3. Interval development of sinusitis involving the maxillary and ethmoid regions. The above report was generated using voice recognition software. It may contain grammatical, syntax or spelling errors. Electronically signed by: Werner Mcmahon M.D. 08/07/2017 7:33 PM Dictated Date/Time: 08/07/2017 7:31 PM
--- NOTE | 2017-08-07 20:01 | DIAGNOSTIC IMAGING REPORT ---
SKULL <4 VIEWS CLINICAL HISTORY: eval shunt tube position COMPARISON STUDY: 03/15/2017 FINDINGS: right frontal shunt catheter appears to be unchanged in location. It appears continuous. Between the port and proximal aspect of the drainage catheter is a lucency of several centimeters. Review of patient's prior CT study as well as current exam and prior shunt series shows this to be pre-existing and most likely relates to the connection itself. IMPRESSION: No evidence for change in catheter location. Shunt catheter is felt to be continuous. The above report was generated using voice recognition software. It may contain grammatical, syntax or spelling errors. Electronically signed by: Werner Mcmahon M.D. 08/07/2017 8:00 PM Dictated Date/Time: 08/07/2017 7:55 PM
--- NOTE | 2017-08-07 20:02 | DIAGNOSTIC IMAGING REPORT ---
CHEST 2 VIEWS ROUTINE CLINICAL HISTORY: shunt eval mental status change COMPARISON STUDY: 07/18/2017 FINDINGS: The bones soft tissues and hemidiaphragms are normal. The cardiomediastinal silhouette is normal. Slight infiltrative change left lung base. The patient's shunt catheter appears to be intact. The pulmonary vasculature is normal. IMPRESSION: Minimal infiltrative/atelectatic change left base. The shunt catheter appears to be intact. The above report was generated using voice recognition software. It may contain grammatical, syntax or spelling errors. Electronically signed by: Werner Mcmahon M.D. 08/07/2017 8:01 PM Dictated Date/Time: 08/07/2017 8:00 PM
--- NOTE | 2017-08-07 20:03 | DIAGNOSTIC IMAGING REPORT ---
SOFT TISSUE NECK TECHNIQUE: AP and lateral soft tissue neck FINDINGS: Unremarkable shunt evaluation of the soft tissue neck. The patient's shunt catheter appears to be intact. The radiopaque marker show no evidence for discontinuous change. IMPRESSION: Normal since series of the soft tissue neck. The above report was generated using voice recognition software. It may contain grammatical, syntax or spelling errors. Electronically signed by: Werner Mcmahon M.D. 08/07/2017 8:02 PM Dictated Date/Time: 08/07/2017 8:02 PM
--- NOTE | 2017-08-07 20:10 | DIAGNOSTIC IMAGING REPORT ---
ABDOMEN 2 VIEWS CLINICAL HISTORY: eval shunt tube position COMPARISON STUDY: 03/27/2017 FINDINGS: The distal aspect of the patient's shunt catheter now appears to be localized within the subcutaneous fat of the right lateral abdomen. This appears to be to be old back as compared to its prior position. IMPRESSION: Distal aspect of the catheter now appears to terminate within the subcutaneous fat extrinsic to the lateral upper right abdominal wall. This appears to have been pulled back from its previous position. The above report was generated using voice recognition software. It may contain grammatical, syntax or spelling errors. Electronically signed by: Werner Mcmahon M.D. 08/07/2017 8:09 PM Dictated Date/Time: 08/07/2017 8:06 PM
[2017-08-07 20:17] LABS: POTASSIUM 3.4 mmol/L (3.5-5.1)
[2017-08-07] MEDS ORDERED: OXYCODONE HCL IR 5 MG TAB (IMMEDIATE RELEASE) PO STA (20:23)
[2017-08-07] MEDS ORDERED: ONDANSETRON 4MG OD TAB PO ONE (20:30)
[2017-08-07] MEDS ORDERED: HYDROmorphone INJ 0.5 MG/0.5 ML SYR IV STA (21:30)
[2017-08-07 22:51] VITALS: BP 111/59; PULSE 96; O2SAT 93
== END 2017-08-07 22:52 | disposition home or self-care (01) ==
LOC: C.EDB 16:00
DX: R51 Headache (principal); F41.9 Anxiety disorder, unspecified; J45.909 Unspecified asthma, uncomplicated; K21.9 Gastro-esophageal reflux disease without esophagitis; F25.0 Schizoaffective disorder, bipolar type; Z88.8 Allergy status to other drugs, medicaments and biological substances

== ENCOUNTER → 2017-08-21 | Outpatient (CLI) | payer BC, OTHER ==
[~2017-08-21] MED LIST changes: +AMOX875T PO; +CETI10TA84 PO; +DOXY-300 PO; -EFFSR150 PO; +MCRK/20 PO; -POTA-65 PO; -SENN1TAB80 PO; +TRAZ50TA35 PO; +VENL150C PO; -WOUN1PAD EXT; -XRL20 PO; -ZYR10 PO
--- NOTE | 2017-08-21 15:02 | DIAGNOSTIC IMAGING REPORT ---
ABDOMEN 2VIEW W/PA CHEST RTN CLINICAL HISTORY: 32 years-old Female presenting with R10.9 Left sided abdominal pain. TECHNIQUE: PA view of the chest and supine and upright views of the abdomen were obtained. COMPARISON: Chest x-ray from 08/07/2017 and abdominal radiograph from 08/07/2017. FINDINGS: Evaluation degraded by patient body habitus. Ventriculopleural shunt is looped in the right pleural space. Cardiomediastinal silhouette top normal in size. Mildly low lung volumes unchanged. Elevation of the left hemidiaphragm unchanged. No new focal opacity. No large effusion or pneumothorax. Right internal jugular Mediport terminates in the right atrium. Cholecystectomy clips noted. Moderate stool burden in the left colon to the level of the rectum. Gaseous distention of transverse colon. No convincing evidence of bowel obstruction. No gross pneumoperitoneum. A pleuroperitoneal shunt may also be present but is poorly assessed. Osseous structures normal. IMPRESSION: 1. Limited assessment secondary to patient body habitus. 2. Mildly low lung volumes with hypoventilatory changes. 3. Findings consistent with constipation in the left colon to the rectum. 4. No bowel obstruction or free air. 5. Ventriculopleural and pleuroperitoneal shunts likely in place, evaluation limited due to body habitus. Electronically signed by: Chris Blanco M.D. 08/21/2017 3:00 PM Dictated Date/Time: 08/21/2017 2:56 PM
== END | disposition home or self-care (01) ==
LOC: C.RAD 14:03
PROVIDERS: ATTEND Physician Assistant
DX: R10.9 Unspecified abdominal pain (principal)

== ENCOUNTER 2017-08-27 19:21 | Emergency (ER) | payer BC, OTHER ==
[~2017-08-27] VITALS: Ht 119.4 cm; Wt 107.0 kg
[~2017-08-27 19:21] MED LIST changes: -AMOX875T PO; -CETI10TA84 PO
[2017-08-27 19:26] VITALS: Ht 119.4 cm; Wt 107.0 kg
[2017-08-27] MEDS ORDERED: DEXAMETHASONE INJ 10 MG in SYRINGE 0 ML IV STA (19:44)
[2017-08-27] MEDS ORDERED: PROCHLORPERAZINE 5 MG/ML 2 ML VIAL IV STA (19:44)
[2017-08-27] MEDS ORDERED: DiphenhydrAMINE HCL 50 MG/ML VIAL IV STA (19:44)
[2017-08-27] MEDS ORDERED: CETI10TA84 PO (19:58)
[2017-08-27] MEDS ORDERED: DEXAMETHASONE **PF** INJ 10 MG/ML VIAL ONE (20:02)
[2017-08-27 20:17] LABS: BASO % 0.4 %; BASO ABS # 0.03 K/uL (0-0.2); EOS ABS # 0.34 K/uL (0-0.5); HEMATOCRIT 43.6 % (37-47); HEMOGLOBIN 13.4 g/dL (12.0-16.0); IG# 0.01 K/uL (0.00-0.02); LYMPH % 28.3 %; LYMPH ABS # 2.39 K/uL (1.2-3.4); MEAN CELL VOLUME 96.7 fL (80-100); MEAN CORPUSCULAR HEMOGLOBIN 29.7 pg (25-34); MEAN CORPUSCULAR HGB CONC 30.7 g/dl (32-36); MONO % 7.5 %; MONO ABS # 0.63 K/uL (0.11-0.59); NEUT % 59.7 %; NEUT ABS # 5.04 K/uL (1.4-6.5); PLATELET COUNT 245 K/uL (130-400); RED CELL DISTRIBUTION WIDTH CV 15.1 % (11.5-14.5); RED CELL DISTRIBUTION WIDTH SD 53.5 fL (36.4-46.3); WHITE BLOOD COUNT 8.44 K/uL (4.8-10.8)
[2017-08-27 20:51] LABS: CALCIUM 8.7 mg/dl (8.5-10.1); CREATININE 0.78 mg/dl (0.60-1.20)
--- NOTE | 2017-08-27 21:01 | DIAGNOSTIC IMAGING REPORT ---
HEAD WITHOUT CONTRAST (CT) CLINICAL HISTORY: 32 years-old Female presenting with eval for hydrocephalus, worsening headache. TECHNIQUE: Multidetector CT imaging of the head was performed without the use of intravenous contrast. IV contrast: None. A dose lowering technique was used consistent with the principles of ALARA (as low as reasonably achievable). COMPARISON: 08/07/2017. CT DOSE (mGy.cm): The estimated cumulative dose is 712.55 mGy.cm. FINDINGS: Adult And Pediatric Neurologist topogram: Unremarkable. Right transfrontal ventriculostomy shunt catheter terminates near the foramen of Monro. Congenitally absent corpus callosum suggested. Chronic ventricular decompression. Cystic encephalomalacia in the paramedian right is simple lobe, unchanged. Brain parenchyma normal in appearance with preserved olivo-white differentiation. No mass effect or midline shift. No hemorrhage or acute territorial infarct. No extra-axial fluid collection. Layering fluid in the left maxillary sinus with aerated secretions. Calvarium intact apart from postsurgical change in the right frontal and right parietal regions. IMPRESSION: 1. Chronic ventricular decompression. No hydrocephalus. 2. Findings suggest acute sinusitis in the left maxillary sinus. Electronically signed by: Chris Blanco M.D. 08/27/2017 8:59 PM Dictated Date/Time: 08/27/2017 8:55 PM
--- NOTE | 2017-08-27 21:04 | DIAGNOSTIC IMAGING REPORT ---
CHEST 2 VIEWS ROUTINE CLINICAL HISTORY: 32 years-old Female presenting with eval shunt. TECHNIQUE: AP and crosstable lateral views of the chest were obtained. COMPARISON: 08/21/2017. FINDINGS: Evaluation degraded by patient body habitus. Ventriculopleural catheter loosely looped in the right pleural space. Right internal jugular Mediport terminates in the right atrium. Additional catheter projects over the right hemithorax. No evidence of kink or discontinuity . Cardiomediastinal silhouette normal. Lungs and pleural spaces clear. Osseous structures normal. Cholecystectomy clips noted. IMPRESSION: 1. No gross evidence of discontinuity or kink of the shunt catheters. 2. No acute cardiopulmonary disease. Electronically signed by: Chris Balnco M.D. 08/27/2017 9:03 PM Dictated Date/Time: 08/27/2017 8:59 PM
--- NOTE | 2017-08-27 21:10 | DIAGNOSTIC IMAGING REPORT ---
ABDOMEN 2 VIEWS CLINICAL HISTORY: 32 years-old Female presenting with eval shunt. TECHNIQUE: Single supine view of the abdomen was obtained. COMPARISON: 08/21/2017. FINDINGS: Evaluation degraded by patient body habitus. The second, abandoned shunt catheter descends to the right lower quadrant. On prior CT of abdomen pelvis from 04/19/[address] from 11/15/2016, this shunt is demonstrated to be contained within the subcutaneous fat and not draining into the peritoneal space and not connected to a ventriculostomy shunt catheter superiorly. Cholecystectomy clips noted. Nonobstructive bowel gas pattern. No gross pneumoperitoneum. Osseous structures normal. IMPRESSION: Abandoned ventriculoperitoneal shunt catheter. On prior CT of abdomen pelvis from 04/19/[address] from 11/15/2016, this shunt is demonstrated to be contained within the subcutaneous fat and not draining into the peritoneal space and not connected to a ventriculostomy shunt catheter superiorly. The functional catheter is a ventriculopleural catheter. Electronically signed by: Chris Blanco M.D. 08/27/2017 9:09 PM Dictated Date/Time: 08/27/2017 9:06 PM
[2017-08-27] MEDS ORDERED: MoRPHine SULFATE 10 MG/ML CARP/VIAL IV STA (21:12)
--- NOTE | 2017-08-27 21:12 | DIAGNOSTIC IMAGING REPORT ---
CERVICAL SPINE 2 OR 3 VIEWS CLINICAL HISTORY: 32 years-old Female presenting with eval shunt. TECHNIQUE: Frontal and crosstable lateral views of the cervical spine were obtained. COMPARISON: 08/07/2017. FINDINGS: Evaluation degraded by patient body habitus. Partially visualized right internal jugular Mediport. A ventriculopleural shunt catheter descends along the right posterior lateral neck and is intact along the visualized course. Additional abandoned ventriculoperitoneal catheter terminates in the subcutaneous tissue of the right chest wall as demonstrated on prior chest CT from 11/15/2016. Cervical spine grossly normal in appearance allowing for limited image quality. IMPRESSION: Grossly intact ventriculopleural shunt catheter. Electronically signed by: Chris Blanco M.D. 08/27/2017 9:11 PM Dictated Date/Time: 08/27/2017 9:09 PM
[2017-08-27] MEDS ORDERED: AMOXICILLIN/CLAVULANATE TAB 875 MG TAB PO ONE (21:30)
[2017-08-27] MEDS ORDERED: SODIUM CHLORIDE 0.9% 500ML 500 ML IV STA (21:32)
[2017-08-27] MEDS ORDERED: AMOX875T PO (22:14)
[2017-08-27 22:31] VITALS: BP 136/77; PULSE 78; TEMP 36.9; O2SAT 96
--- NOTE | 2017-08-27 23:23 | EMERGENCY ROOM VISIT NOTE ---
History Report prepared by James: Conner Hensley Under the Supervision of: Dr. George Cheng M.D. First contact with patient: 19:35 Chief Complaint: HEADACHE Stated Complaint: SEVERE FRIED History of Present Illness The patient is a 32 year old female who presents to the Emergency Room with complaints of a gradually worsening headache that began this morning, several hours ago. The patient describes her pain as a "pressure," which is "severe." She denies any numbness or weakness in her arms. She has not had any fevers or vomiting episodes, but she was nauseous earlier this morning and felt like she could vomit. The patient has a history of headaches and follows with the [facility] in [place]. She has received a Botox injection for her headache at the clinic, and will continue to receive them in the future. She follows with Dr. Wise for migraines and is commonly treated with a cocktail of Compazine, Benadryl, and a steroid. She does have a shunt in place which was last revised a year ago. The family member at bedside noted that she may have a UTI and is currently being treated with Doxycycline for MRSA. She states that the headache feels like something between a migraine and a shunt malfunction. Source of History: patient, family Onset: Several hours ago, this morning Position: head Symptom Intensity: severe Quality: pressure Timing: worsening (gradually) Associated Symptoms: + nausea, No fevers, No vomiting, No weakness, No numbness Review of Systems See HPI for pertinent positives & negatives. A total of 10 systems reviewed and were otherwise negative. Past Medical & Surgical Medical Problems: (1) Allergic reaction caused by a drug (2) Anxiety (3) Asthma (4) Asthma exacerbation (5) Cellulitis (6) Cellulitis of hip, right (7) Complicated UTI (urinary tract infection) (8) Gastroparesis (9) GERD (gastroesophageal reflux disease) (10) Hydrocephalus (11) Hypothyroidism (12) Migraines (13) MRSA (methicillin resistant Staphylococcus aureus) (14) Nonhealing nonsurgical wound with necrosis of muscle (15) Osteomyelitis (16) Pulmonary embolism (17) Schizoaffective disorder, bipolar type (18) Shunt placement with revision x8 (19) Spina bifida (20) UTI (urinary tract infection) Surgical Problems: (1) S/P BKA (below knee amputation) bilateral Family History Cancer Diabetes mellitus Lung disease Social History Smoking Status: Never Smoker Alcohol Use: none Drug Use: none Marital Status: single Housing Status: lives with family Occupation Status: disabled Current/Historical Medications Scheduled Amoxicillin & Pot Clavulanate (Augmentin 875-125 mg), 875 MG PO BID Benztropine Mesylate (Benztropine Mesylate), 1 MG PO BID Cetirizine (Zyrtec), 10 MG PO DAILY Cholecalciferol (Vitamin D), 2,000 INTER.UNIT PO BID Cyanocobalamin (Vitamin B-12), 500 MCG PO DAILY Docusate Sodium (Colace), 100 MG PO BID Doxycycline (Monohydrate) (Doxycycline), 100 MG PO BID Famotidine (Pepcid), 40 MG PO DAILY Ferrous Sulfate (Ferrous Sulfate), 325 MG PO BID Fluticasone Prop/Salmeterol (Advair Diskus 500/50 60 Dose), 1 PUFF INH BID Gabapentin (Gabapentin), 300 MG PO BID Hydroxyzine HCl (Hydroxyzine Pamoate), 50 MG PO HS Hydroxyzine HCl (Hydroxyzine HCl), 25 MG PO QAM Hyoscyamine Sulfate (Levsin), 0.125 MG PO TID Levothyroxine Sodium (Levothyroxine Sodium), 75 MCG PO QAM Linaclotide (Linzess), 290 MCG PO QAM Trinity Carbonate (Trinity Carbonate), 600 MG PO QPM Trinity Carbonate Er (Lithobid Ext Rel), 450 MG PO QAM Montelukast Sod (Montelukast Sodium), 10 MG PO HS Multiple Vitamin (Multivitamin), 1 TAB PO DAILY Nystatin (Topical) (Nystop), 1 APPLN TOP UD Pantoprazole (Pantoprazole Sodium), 40 MG PO DAILY Potassium Chloride (Potassium Chloride ER), 40 MEQ PO AMPM Probiotic Product (Probiotic), 1 CAP PO TID Senna (Senokot), 8.6 MG PO BID Sucralfate (Carafate), 10 ML PO QID Topiramate (Qudexy Xr), 100 MG PO BID Trazodone Hcl (Trazodone), 50 MG PO HS Venlafaxine Hcl (Effexor Xr), 150 MG PO QAM Scheduled PRN Albuterol Sulfate (Proair Respiclick), 2 PUFFS INH TID PRN for SOB/Wheezing Levalbuterol (Levalbuterol HCl), 3 ML NEB Q4H PRN for Shortness of Breath Meclizine Hcl (Meclizine Hcl), 25 MG PO TID PRN for Dizziness or Vertigo Menthol-Zinc Oxide (Calmoseptine), 1 APPLN TOP DAILY PRN for Skin Irritation Ondasetron Odt (Zofran Odt), 4 MG SL Q8 PRN for Nausea Oxycodone HCl (Oxycodone HCl), 5-10 MG PO Q8 PRN for Pain Polyethylene Glycol 3350 (Miralax), 17 GM PO DAILY PRN for Constipation Allergies Coded Allergies: Adhesives (Verified Allergy, Intermediate, TAPE- HIVES, 08/27/17) Ceftriaxone (Verified Allergy, Intermediate, rash, 08/27/17) Has tolerated cefepime and Zerbaxa Chlorhexidine (Verified Allergy, Intermediate, RASH, 08/27/17) Ciprofloxacin (Verified Allergy, Intermediate, hives, 08/27/17) Imipenem (Verified Allergy, Intermediate, PT REPORTS ITCHING, 08/27/17) Latex (Verified Allergy, Intermediate, hives, 08/27/17) Levofloxacin (Verified Allergy, Intermediate, rash, 06/30/17) Linezolid (Verified Allergy, Intermediate, rash, 06/30/17) Piperacillin (Verified Allergy, Intermediate, SEVERE RASH, HIVES, 06/30/17) Tazobactam (Verified Allergy, Intermediate, SEVERE RASH, HIVES, 06/30/17) Vancomycin (Verified Allergy, Intermediate, rash, 06/30/17) Tobramycin (Verified Allergy, Mild, MILD RASH ON ARM, RED FACE, 06/30/17) IMPROVED AFTER BENADRYL, TAKING REST OF DOSE Amikacin (Verified Allergy, Unknown, PER DR ROBINS,RXN WAS TO ZOSYN NOT AMKrash;hives, 06/30/17) Sulfamethoxazole w/Trimethoprim (Verified Allergy, Unknown, Hives, 06/30/17 ) Can be pretreated with 10mg Zytrec 45 min prior to admin Physical Exam Vital Signs Date Time Temp Pulse Resp B/P (MAP) Pulse Ox O2 Delivery O2 Flow Rate FiO2 08/27/17 22:31 36.9 78 24 136/77 96 3/25/18 21:51 136/77 08/27/17 21:13 78 24 99/77 96 Room Air 08/27/17 19:26 36.9 97 18 139/95 98 Room Air Physical Exam Constitutional: Vital signs reviewed. Eyes: Pupils are equal round reactive to light. Conjunctiva are noninjected. ENT: Pharynx is clear without erythema or exudate. Mucous membranes are moist. Neck supple without meningeal signs.There is a shunt to the right side of the skull. Respiratory: Clear to auscultation bilaterally. Breath sounds are equal bilaterally. Cardiovascular: Regular rate and rhythm. No rubs or gallops. GI: Soft, nondistended and nontender. Bowel sounds are present. Musculoskeletal: Bilateral lower extremity amputations. Integumentary: No cyanosis. Neurological: The patient is awake and alert. Patient is a paraplegic. She has normal strength in upper extremities. Cranial nerves intact except for diminished sensation to the right side of her face. Diminished sensation in the RUE, which is chronic per patient. Psychiatric: Normal affect. Medical Decision & Procedures ER Provider Diagnostic Interpretation: Radiology results as stated below per my review and the radiologist's interpretation: ABDOMEN 2 VIEWS CLINICAL HISTORY: 32 years-old Female presenting with eval shunt. TECHNIQUE: Single supine view of the abdomen was obtained. COMPARISON: 08/21/2017. FINDINGS: Evaluation degraded by patient body habitus. The second, abandoned shunt catheter descends to the right lower quadrant. On prior CT of abdomen pelvis from 04/19/[address] from 11/15/2016, this shunt is demonstrated to be contained within the subcutaneous fat and not draining into the peritoneal space and not connected to a ventriculostomy shunt catheter superiorly. Cholecystectomy clips noted. Nonobstructive bowel gas pattern. No gross pneumoperitoneum. Osseous structures normal. IMPRESSION: Abandoned ventriculoperitoneal shunt catheter. On prior CT of abdomen pelvis from 04/19/[address] from 11/15/2016, this shunt is demonstrated to be contained within the subcutaneous fat and not draining into the peritoneal space and not connected to a ventriculostomy shunt catheter superiorly. The functional catheter is a ventriculopleural catheter. Electronically signed by: Chris Blanco M.D. 08/27/2017 9:09 PM Dictated Date/Time: 08/27/2017 9:06 PM CERVICAL SPINE 2 OR 3 VIEWS CLINICAL HISTORY: 32 years-old Female presenting with eval shunt. TECHNIQUE: Frontal and crosstable lateral views of the cervical spine were obtained. COMPARISON: 08/07/2017. FINDINGS: Evaluation degraded by patient body habitus. Partially visualized right internal jugular Mediport. A ventriculopleural shunt catheter descends along the right posterior lateral neck and is intact along the visualized course. Additional abandoned ventriculoperitoneal catheter terminates in the subcutaneous tissue of the right chest wall as demonstrated on prior chest CT from 11/15/2016. Cervical spine grossly normal in appearance allowing for limited image quality. IMPRESSION: Grossly intact ventriculopleural shunt catheter. Electronically signed by: Chris Blanco M.D. 08/27/2017 9:11 PM Dictated Date/Time: 08/27/2017 9:09 PM CHEST 2 VIEWS ROUTINE CLINICAL HISTORY: 32 years-old Female presenting with eval shunt. TECHNIQUE: AP and crosstable lateral views of the chest were obtained. COMPARISON: 08/21/2017. FINDINGS: Evaluation degraded by patient body habitus. Ventriculopleural catheter loosely looped in the right pleural space. Right internal jugular Mediport terminates in the right atrium. Additional catheter projects over the right hemithorax. No evidence of kink or discontinuity . Cardiomediastinal silhouette normal. Lungs and pleural spaces clear. Osseous structures normal. Cholecystectomy clips noted. IMPRESSION: 1. No gross evidence of discontinuity or kink of the shunt catheters. 2. No acute cardiopulmonary disease. Electronically signed by: Chris Blanco M.D. 08/27/2017 9:03 PM Dictated Date/Time: 08/27/2017 8:59 PM HEAD WITHOUT CONTRAST (CT) CLINICAL HISTORY: 32 years-old Female presenting with eval for hydrocephalus, worsening headache. TECHNIQUE: Multidetector CT imaging of the head was performed without the use of intravenous contrast. IV contrast: None. A dose lowering technique was used consistent with the principles of ALARA (as low as reasonably achievable). COMPARISON: 08/07/2017. CT DOSE (mGy.cm): The estimated cumulative dose is 712.55 mGy.cm. FINDINGS: Training Executive topogram: Unremarkable. Right transfrontal ventriculostomy shunt catheter terminates near the foramen of Monro. Congenitally absent corpus callosum suggested. Chronic ventricular decompression. Cystic encephalomalacia in the paramedian right is simple lobe, unchanged. Brain parenchyma normal in appearance with preserved olivo-white differentiation. No mass effect or midline shift. No hemorrhage or acute territorial infarct. No extra-axial fluid collection. Layering fluid in the left maxillary sinus with aerated secretions. Calvarium intact apart from postsurgical change in the right frontal and right parietal regions. IMPRESSION: 1. Chronic ventricular decompression. No hydrocephalus. 2. Findings suggest acute sinusitis in the left maxillary sinus. Electronically signed by: Chris Blanco M.D. 08/27/2017 8:59 PM Dictated Date/Time: 08/27/2017 8:55 PM Laboratory Results 08/27/17 20:05 Red Blood Count 4.51, Mean Corpuscular Volume 96.7, Mean Corpuscular Hemoglobin 29.7, Mean Corpuscular Hemoglobin Concent 30.7, Mean Platelet Volume 10.0, Neutrophils (%) (Auto) 59.7, Lymphocytes (%) (Auto) 28.3, Monocytes (%) (Auto) 7.5, Eosinophils (%) (Auto) 4.0, Basophils (%) (Auto) 0.4, Neutrophils # (Auto) 5.04, Lymphocytes # (Auto) 2.39, Monocytes # (Auto) 0.63, Eosinophils # (Auto) 0.34, Basophils # (Auto) 0.03 08/27/17 20:05 Test 08/27/17 20:05 08/27/17 20:59 White Blood Count 8.44 K/uL (4.8-10.8) Red Blood Count 4.51 M/uL (4.2-5.4) Hemoglobin 13.4 g/dL (12.0-16.0) Hematocrit 43.6 % (37-47) Mean Corpuscular Volume 96.7 fL (80-100) Mean Corpuscular Hemoglobin 29.7 pg (25-34) Mean Corpuscular Hemoglobin Concent 30.7 g/dl (32-36) Platelet Count 245 K/uL (130-400) Mean Platelet Volume 10.0 fL (7.4-10.4) Neutrophils (%) (Auto) 59.7 % Lymphocytes (%) (Auto) 28.3 % Monocytes (%) (Auto) 7.5 % Eosinophils (%) (Auto) 4.0 % Basophils (%) (Auto) 0.4 % Neutrophils # (Auto) 5.04 K/uL (1.4-6.5) Lymphocytes # (Auto) 2.39 K/uL (1.2-3.4) Monocytes # (Auto) 0.63 K/uL (0.11-0.59) Eosinophils # (Auto) 0.34 K/uL (0-0.5) Basophils # (Auto) 0.03 K/uL (0-0.2) RDW Standard Deviation 53.5 fL (36.4-46.3) RDW Coefficient of Variation 15.1 % (11.5-14.5) Immature Granulocyte % (Auto) 0.1 % Immature Granulocyte # (Auto) 0.01 K/uL (0.00-0.02) Anion Gap 5.0 mmol/L (3-11) Est Creatinine Clear Calc Drug Dose 86.9 ml/min Estimated GFR () 118.2 Estimated GFR (Non- 102.0 BUN/Creatinine Ratio 17.7 (10-20) Calcium Level 8.7 mg/dl (8.5-10.1) Trinity Level 1.1 mMOL/L (0.6-1.2) Urine Color YELLOW Urine Appearance CLEAR (CLEAR) Urine pH 6.5 (4.5-7.5) Urine Specific [place] 1.008 (1.000-1.030) Urine Protein NEG (NEG) Urine Glucose (UA) NEG (NEG) Urine Ketones NEG (NEG) Urine Occult Blood TRACE (NEG) Urine Nitrite NEG (NEG) Urine Bilirubin NEG (NEG) Urine Urobilinogen NEG (NEG) Urine Leukocyte Esterase MODERATE (NEG) Urine WBC (Auto) 5-10 /hpf (0-5) Urine RBC (Auto) 0-4 /hpf (0-4) Urine Hyaline Casts (Auto) 1-5 /lpf (0-5) Urine Epithelial Cells (Auto) >30 /lpf (0-5) Urine Bacteria (Auto) 1+ (NEG) Laboratory results as reviewed by me. Medications Administered Medications (Trade) Dose Ordered Sig/Brenna Route Start Time Stop Time Status Last Admin Dose Admin Prochlorperazine Edisylate (Compazine Inj) 10 mg NOW STAT IV 08/27/17 19:44 08/27/17 19:49 DC 08/27/17 19:44 10 MG Diphenhydramine HCl (Benadryl Inj) 50 mg NOW STAT IV 08/27/17 19:44 08/27/17 19:49 DC 08/27/17 19:44 50 MG Dexamethasone Sodium Phosphate 10 mg/Syringe 2.5 ml @ 1 mls/min NOW STAT IV 08/27/17 19:44 08/27/17 19:49 DC 08/27/17 19:44 1 MLS/MIN Morphine Sulfate (MoRPHine SULFATE INJ) 6 mg NOW STAT IV 08/27/17 21:12 08/27/17 21:17 DC 08/27/17 21:12 6 MG Amoxicillin/ Clavulanate Potassium (Augmentin Tab) 875 mg ONE ONCE PO 08/27/17 21:30 08/27/17 21:31 DC 08/27/17 21:29 875 MG Sodium Chloride 500 ml @ 999 mls/hr Q31M STAT IV 08/27/17 21:32 08/27/17 22:02 DC 08/27/17 21:32 999 MLS/HR ED Course 1936: The patient was evaluated in room C2B. A complete history and physical exam was performed. 1943: Ordered Dexamethasone Sodium Phosphate 10 mg/Syringe 2.5 mL @ 1 mL/min IV , Benadryl 50 mg IV, Compazine 10 mg IV. 2110: I checked on the patient at this time. She states that her headache is unchanged. Her blood work for her potassium is hemolyzed, but she refuses a re- stick. I suggested that we re-draw as she commonly has low potassium. 2111: Ordered Morphine Sulfate 6 mg IV. 2116: I spoke with the patient again. She states that she has taken Augmentin before, even though that she is allergic to Zosyn. 2129: Ordered Augmentin 875 mg PO. 2131: Ordered Sodium Chloride 500 mL @ 999 mL/hr IV. 2210: I checked with the patient at this time. Her headache is now gone, and she wants to go home. The patient will be discharged. Medical Decision This is a 32-year-old female who presents with headache. Differential diagnosis includes migraine headache, tension headache, shunt malfunction, hydrocephalus, intracranial hemorrhage. I did perform a limited focused review of portions of the patient's old chart on the electronic medical record. The [facility] the of this month for a right thigh wound. I did evaluate the patient as noted above. Patient is presenting with a headache. She does have a history of migraines but she also has a history of TUBE TESTER shunt. Her mom was also concerned about a potential UTI. IV access was established. I did treat the patient with IV Compazine, Benadryl and Decadron. I did order and personally review the patient's urinalysis as described above. A urine culture was sent. I did order and review the patient's blood work as noted in the electronic medical record. Her white blood cell count is not elevated. The patient's potassium was hemolyzed. I did recommend recheck but the patient did not wish to have another blood draw. I did order a CT of the head. I did review the images myself as well as the radiology report as described above. There is no evidence of hydrocephalus. She does have left maxillary sinusitis. Her shunt series was obtained which showed the shunt was intact. I did reassess patient. She states that she has no improvement of her headache. She was given morphine 6 mg IV. Blood pressure did drop somewhat and she was given some normal saline and her blood pressure did rebound. On reassessment she states that her headache is completely gone. I did discuss the test results with the patient and her mother. She was discharged in good condition with a prescription for Augmentin. The patient states he is not allergic to Augmentin despite her allergy to Zosyn. She states she has had it in the past. Medication Reconcilliation Current Medication List: was personally reviewed by me Blood Pressure Screening Patient's blood pressure: Normal blood pressure Impression Primary Impression: Headache Additional Impressions: UTI (urinary tract infection) Acute sinusitis Scribe Attestation The scribe's documentation has been prepared under my direct and personally reviewed by me in its entirety. I confirm that the note above accurately reflects all work, treatment, procedures, and medical decision making performed by me. Departure Information Dispostion Home / Self-Care Prescriptions Amoxicillin & Pot Clavulanate (Augmentin 875-125 mg) 1 Tab Tab 875 MG PO BID for 10 Days, #20 TAB Prov: George Cheng M.D. 08/27/17 Referrals Gela Boone M.D. (PCP) Forms HOME CARE DOCUMENTATION FORM, IMPORTANT VISIT INFORMATION Patient Instructions My [facility] Additional Instructions You have been examined and treated today on an emergency basis only. This is not a substitute for, or an effort to provide, complete comprehensive medical care. It is impossible to recognize and treat all injuries or illnesses in a single emergency department visit. It is therefore important that you follow up closely with your physician. Call as soon as possible for an appointment. Return for worsening symptoms or if you develop fever, numbness or weakness on one side of your body, difficulties with your speech or walking, or any other concerning symptoms. Problem Qualifiers Primary Impression: Headache Headache type: unspecified Headache chronicity pattern: acute headache Intractability: not intractable Qualified Codes: R51 - Headache Additional Impressions: UTI (urinary tract infection) Urinary tract infection type: catheter-associated UTI Indwelling urinary catheter type: indwelling urethral catheter Encounter type: initial encounter Qualified Codes: T83.511A - Infection and inflammatory reaction due to indwelling urethral catheter, initial encounter; N39.0 - Urinary tract infection, site not specified Acute sinusitis Sinusitis location: maxillary Recurrence: non-recurrent Qualified Codes: J01.00 - Acute maxillary sinusitis, unspecified
--- NOTE | 2017-08-30 15:44 | Pharmacy Progress Note ---
ED Pharmacist Culture FollowUp Date of Service: Aug 30, 2017. Patient with history of UTI and suprapubic catheter growing pseudomonas and serratia in the blood. Patient presented to the ED 3 days ago afebrile, with worsening headache. I attempted to contact multiple outpatient providers as susceptibilities are limited, the patient's allergy list is extensive, and most of the agents available are intravenous. I first attempted to contact the patient's PCP, Dr. Glea Boone. However, she was unavailable and I was transferred to a PA from the office. The PA did not feel like she could significantly help as she had never seen the patient. She did provide me with the name of the patient's urologist, Dr. Jayson Sahu with whom the patient recently visited. I called Dr. Sahu office and he felt the patient should be treated. He first suggested oral fosfomycin. I explained that we have had issues in the past finding an outpatient pharmacy that carried the medication. He then advised me to contact infectious disease for further recommendations on agents and product availability. I saw in past notes that the patient is known to Dr. Sauceda and thus called his office. I spoke with a liaison for Dr. Sauceda, Stephania, who after consulting with Dr. Sauceda stated that he recommended cefepime 2g q8h X 7 days. I confirmed with Stephania that she and Dr. Sauceda's office would assume responsibility for coordinating outpatient IV antibiotic treatment with the patient. I also discussed this entire plan with Dr. Mendoza.
== END 2017-08-27 22:32 | disposition home or self-care (01) ==
LOC: C.EDB 19:21 → C.EDC 22:32
DX: R51 Headache (principal); N39.0 Urinary tract infection, site not specified; J01.00 Acute maxillary sinusitis, unspecified; B95.62 Methicillin resistant Staphylococcus aureus infection as the cause of diseases classified elsewhere; J45.909 Unspecified asthma, uncomplicated; F41.9 Anxiety disorder, unspecified; E03.9 Hypothyroidism, unspecified; K21.9 Gastro-esophageal reflux disease without esophagitis; K31.84 Gastroparesis; F25.0 Schizoaffective disorder, bipolar type; Z98.2 Presence of cerebrospinal fluid drainage device; Z91.048 Other nonmedicinal substance allergy status; Z88.8 Allergy status to other drugs, medicaments and biological substances; Z88.1 Allergy status to other antibiotic agents; Z88.0 Allergy status to penicillin; Z88.2 Allergy status to sulfonamides; Z91.040 Latex allergy status; Z83.3 Family history of diabetes mellitus; Z83.6 Family history of other diseases of the respiratory system

== ENCOUNTER 2017-09-01 13:07 | Emergency (ER) | payer BC, OTHER ==
[~2017-09-01] VITALS: Ht 119.4 cm; Wt 115.9 kg
[~2017-09-01 13:07] MED LIST changes: +AMOX875T PO; +CETI10TA84 PO; -RISP2TAB22 PO; -RSP2 PO
[2017-09-01 13:11] VITALS: Ht 119.4 cm; Wt 115.9 kg
--- NOTE | 2017-09-01 13:54 | EMERGENCY ROOM VISIT NOTE ---
History First contact with patient: 13:18 Chief Complaint: NEED IV START Stated Complaint: COULDN'T GET PIC LINE IN History of Present Illness The patient is a 32 year old female who presents to the Emergency Room with complaints of needing a PICC line for UTI. The patient was [facility] IV team tried to place a PICC numerous times and were unsuccessful. He then tried to place a peripheral IV. Again, they were unsuccessful. The patient was sent to the emergency department for further treatment. She currently denies any symptoms such as fever, vomiting or abdominal pain Review of Systems 6 system review negative. Please see pertinent positives in the history of present illness section. 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 (15) Osteomyelitis (16) Pulmonary embolism (17) Schizoaffective disorder, bipolar type (18) Shunt placement with revision x8 (19) Spina bifida (20) UTI (urinary tract infection) Surgical Problems: (1) S/P BKA (below knee amputation) bilateral Family History Cancer Diabetes mellitus Lung disease Social History Smoking Status: Never Smoker Alcohol Use: none Drug Use: none Marital Status: single Housing Status: lives with family Occupation Status: disabled Current/Historical Medications Scheduled Amoxicillin & Pot Clavulanate (Augmentin 875-125 mg), 875 MG PO BID Benztropine Mesylate (Benztropine Mesylate), 1 MG PO BID Cetirizine (Zyrtec), 10 MG PO DAILY Cholecalciferol (Vitamin D), 2,000 INTER.UNIT PO BID Cyanocobalamin (Vitamin B-12), 500 MCG PO DAILY Docusate Sodium (Colace), 100 MG PO BID Doxycycline (Monohydrate) (Doxycycline), 100 MG PO BID Famotidine (Pepcid), 40 MG PO DAILY Ferrous Sulfate (Ferrous Sulfate), 325 MG PO BID Fluticasone Prop/Salmeterol (Advair Diskus 500/50 60 Dose), 1 PUFF INH BID Gabapentin (Gabapentin), 300 MG PO BID Hydroxyzine HCl (Hydroxyzine Pamoate), 50 MG PO HS Hydroxyzine HCl (Hydroxyzine HCl), 25 MG PO QAM Hyoscyamine Sulfate (Levsin), 0.125 MG PO TID Levothyroxine Sodium (Levothyroxine Sodium), 75 MCG PO QAM Linaclotide (Linzess), 290 MCG PO QAM [place] Carbonate ([place] Carbonate), 600 MG PO QPM [place] Carbonate Er (Lithobid Ext Rel), 450 MG PO QAM Montelukast Sod (Montelukast Sodium), 10 MG PO HS Multiple Vitamin (Multivitamin), 1 TAB PO DAILY Nystatin (Topical) (Nystop), 1 APPLN TOP UD Pantoprazole (Pantoprazole Sodium), 40 MG PO DAILY Potassium Chloride (Potassium Chloride ER), 40 MEQ PO AMPM Probiotic Product (Probiotic), 1 CAP PO TID Senna (Senokot), 8.6 MG PO BID Sucralfate (Carafate), 10 ML PO QID Topiramate (Qudexy Xr), 100 MG PO BID Trazodone Hcl (Trazodone), 150 MG PO HS Venlafaxine Hcl (Effexor Xr), 150 MG PO QAM Scheduled PRN Albuterol Sulfate (Proair Respiclick), 2 PUFFS INH TID PRN for SOB/Wheezing Levalbuterol (Levalbuterol HCl), 3 ML NEB Q4H PRN for Shortness of Breath Meclizine Hcl (Meclizine Hcl), 25 MG PO TID PRN for Dizziness or Vertigo Menthol-Zinc Oxide (Calmoseptine), 1 APPLN TOP DAILY PRN for Skin Irritation Ondasetron Odt (Zofran Odt), 4 MG SL Q8 PRN for Nausea Oxycodone HCl (Oxycodone HCl), 5-10 MG PO Q8 PRN for Pain Polyethylene Glycol 3350 (Miralax), 17 GM PO DAILY PRN for Constipation Physical Exam Vital Signs Date Time Temp Pulse Resp B/P (MAP) Pulse Ox O2 Delivery O2 Flow Rate FiO2 09/01/17 16:29 36.9 81 20 111/71 100 09/01/17 16:02 81 20 111/71 100 Room Air 3/30/18 15:04 81 20 116/74 100 Room Air 09/01/17 14:01 86 20 111/77 100 Room Air 09/01/17 13:11 36.9 85 20 116/74 100 Room Air Physical Exam VITALS: Vitals are noted on the nurse's note and reviewed by myself. Vital signs stable. GENERAL: 32-year-old female, in no acute distress SKIN: The skin was warm and dry HEAD: Normocephalic atraumatic. HEART: Regular rate and rhythm without murmurs gallops or rubs. LUNGS: Clear to auscultation bilaterally without wheezes, rales or rhonchi. No accessory muscle use. ABDOMEN: Positive bowel sounds x 4.Soft, MUSCULOSKELETAL: Bilateral BKA noted NEURO: Patient was alert and oriented to person place and time. Medical Decision & Procedures Medications Administered Medications (Trade) Dose Ordered Sig/Brenna Route Start Time Stop Time Status Last Admin Dose Admin Cefepime HCl 2000 mg/Dextrose 112.5 ml @ 200 mls/hr ONE STAT IV 09/01/17 15:18 09/01/17 15:51 DC 09/01/17 15:27 200 MLS/HR ED Course The patient was seen and examined The RN was able to get an 18-gauge in the upper right arm. There was good blood return. It flushed well. The patient was given her dose of cefepime 2 g IV I discussed the case with my supervising physician and Dr. Sauceda from infectious disease Discharge instructions were reviewed, and she was discharged in good condition Medical Decision Differential diagnosis: Poor venous access, UTI, sepsis This patient is a 32-year-old female that was sent to the emergency department [facility] because the patient has a UTI and needs to be treated with antibiotics. A PICC line was ordered. They were unable to place the PICC or a peripheral IV in the [facility] unit. She was sent here for venous access. On exam, the patient was nontoxic in appearance. I discussed the case with Dr. Sauceda from infectious disease. He informed us that she will need to be treated with cefepime for 7 days. Fortunately, the RN was able to get an 18-gauge in her right upper extremity. This was also discussed with pharmacy. The patient will be discharged home with the peripheral IV receiving cefepime twice daily. She was also informed that this may be given intramuscularly if need be. Patient and the patient's mother voiced understanding, and she was discharged in good condition This chart was completed in part utilizing [employer] Speech Voice Recognition software. Attempts were made to minimize the grammatical errors, random word insertions, pronoun errors and incomplete sentences. Any formal questions or concerns about the content, text or information contained within the body of this dictation should be directly addressed to the provider for clarification. Consults Consulting Physician: Dr. Sauceda Impression Primary Impression: UTI (urinary tract infection) Departure Information Dispostion Home / Self-Care Condition GOOD Referrals Gela Boone M.D. (PCP) Sourav Sauceda MD Patient Instructions My [facility] Additional Instructions You have been seen in the emergency department for difficulty obtaining IV access. There is an 18-gauge saline flush in your right upper arm. This needs to be changed in 3 days. If IV access is lost, Cefepime may be given as intramuscular injection. Please follow-up with infectious disease in addition to your primary care physician Do not hesitate to return to the ER with new or concerning symptom
[2017-09-01] MEDS ORDERED: CEFEPIME IV 2,000 MG in DEXTROSE 5% 100ML 100 ML IV STA (15:18)
[2017-09-01] MEDS ORDERED: CEFE2INJ2 IV (15:46)
[2017-09-01 16:29] VITALS: BP 111/71; PULSE 81; TEMP 36.9; O2SAT 100
[2017-09-07] MEDS ORDERED: FLUC100T4 PO (15:09)
== END 2017-09-01 16:29 | disposition home or self-care (01) ==
LOC: EDSEX 13:07 → EDBD 13:07 → C.EDC 13:08
DX: N39.0 Urinary tract infection, site not specified (principal); J45.909 Unspecified asthma, uncomplicated; Q05.4 Unspecified spina bifida with hydrocephalus; K31.84 Gastroparesis; K21.9 Gastro-esophageal reflux disease without esophagitis; E03.9 Hypothyroidism, unspecified; F25.0 Schizoaffective disorder, bipolar type; F41.9 Anxiety disorder, unspecified; G43.909 Migraine, unspecified, not intractable, without status migrainosus; Z89.511 Acquired absence of right leg below knee; Z89.512 Acquired absence of left leg below knee; Z86.14 Personal history of Methicillin resistant Staphylococcus aureus infection; Z86.711 Personal history of pulmonary embolism

== ENCOUNTER 2017-09-03 15:25 | Observation (INO) | payer BC, OTHER ==
[~2017-09-03] VITALS: Ht 119.4 cm; Wt 115.0 kg
[~2017-09-03 15:25] MED LIST changes: +CEFE2INJ2 IV
--- NOTE | 2017-09-03 15:44 | EMERGENCY ROOM VISIT NOTE ---
History Report prepared by James: Seng Welsh Under the Supervision of: Dr. Dex Reyes M.D. First contact with patient: 15:37 Chief Complaint: NEED IV START Stated Complaint: IV ACCESS DOESNT WORK History of Present Illness The patient is a 32 year old female who presents to the Emergency Room with a constant need for an IV replacement beginning at 0600 this morning. The patient states that she has been placed on IV antibiotics for cellulitis a couple of days ago by Dr. Sauceda. She reports that she came to the ED for a PICC Line, but reports that she was not able to. The patient states that 0600 this morning her IV for her antibiotics "blew". She reports she called home health care who put another IV in for the 1400 dose. The patient reports that the area for the IV has been hurting and red and the IV is not working. She reports that even a saline flush has been causing pain. Source of History: patient Onset: 0600 Position: other (global) Timing: constant Note: Associated symptoms: left arm pain and erythema. Review of Systems See HPI for pertinent positives and negatives. A total of ten systems were reviewed and were otherwise negative. 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 (16) Osteomyelitis (17) Pulmonary embolism (18) Schizoaffective disorder, bipolar type (19) Shunt placement with revision x8 (20) Spina bifida (21) UTI (urinary tract infection) Surgical Problems: (1) S/P BKA (below knee amputation) bilateral Family History Cancer Diabetes mellitus Lung disease Social History Smoking Status: Never Smoker Alcohol Use: none Drug Use: none Marital Status: single Housing Status: lives with family Occupation Status: disabled Current/Historical Medications Scheduled Amoxicillin & Pot Clavulanate (Augmentin 875-125 mg), 875 MG PO BID Benztropine Mesylate (Benztropine Mesylate), 1 MG PO BID Cefepime Hcl (Cefepime), 2 GM IV TID Cetirizine (Zyrtec), 10 MG PO DAILY Cholecalciferol (Vitamin D), 2,000 INTER.UNIT PO BID Cyanocobalamin (Vitamin B-12), 500 MCG PO DAILY Docusate Sodium (Colace), 100 MG PO BID Doxycycline (Monohydrate) (Doxycycline), 100 MG PO BID Famotidine (Pepcid), 40 MG PO DAILY Ferrous Sulfate (Ferrous Sulfate), 325 MG PO BID Fluticasone Prop/Salmeterol (Advair Diskus 500/50 60 Dose), 1 PUFF INH BID Gabapentin (Gabapentin), 300 MG PO BID Hydroxyzine HCl (Hydroxyzine Pamoate), 50 MG PO HS Hydroxyzine HCl (Hydroxyzine HCl), 25 MG PO QAM Hyoscyamine Sulfate (Levsin), 0.125 MG PO TID Levothyroxine Sodium (Levothyroxine Sodium), 75 MCG PO QAM Linaclotide (Linzess), 290 MCG PO QAM [place] Carbonate ([place] Carbonate), 600 MG PO QPM [place] Carbonate Er (Lithobid Ext Rel), 450 MG PO QAM Montelukast Sod (Montelukast Sodium), 10 MG PO HS Multiple Vitamin (Multivitamin), 1 TAB PO DAILY Nystatin (Topical) (Nystop), 1 APPLN TOP UD Pantoprazole (Pantoprazole Sodium), 40 MG PO DAILY Potassium Chloride (Potassium Chloride ER), 40 MEQ PO AMPM Probiotic Product (Probiotic), 1 CAP PO TID Senna (Senokot), 8.6 MG PO BID Sucralfate (Carafate), 10 ML PO QID Topiramate (Qudexy Xr), 100 MG PO BID Trazodone Hcl (Trazodone), 150 MG PO HS Venlafaxine Hcl (Effexor Xr), 150 MG PO QAM Scheduled PRN Albuterol Sulfate (Proair Respiclick), 2 PUFFS INH TID PRN for SOB/Wheezing Levalbuterol (Levalbuterol HCl), 3 ML NEB Q4H PRN for Shortness of Breath Meclizine Hcl (Meclizine Hcl), 25 MG PO TID PRN for Dizziness or Vertigo Menthol-Zinc Oxide (Calmoseptine), 1 APPLN TOP DAILY PRN for Skin Irritation Ondasetron Odt (Zofran Odt), 4 MG SL Q8 PRN for Nausea Oxycodone HCl (Oxycodone HCl), 5-10 MG PO Q8 PRN for Pain Polyethylene Glycol 3350 (Miralax), 17 GM PO DAILY PRN for Constipation Allergies Coded Allergies: Adhesives (Verified Allergy, Intermediate, TAPE- HIVES, 09/03/17) Ceftriaxone (Verified Allergy, Intermediate, rash, 09/03/17) Has tolerated cefepime and Zerbaxa Chlorhexidine (Verified Allergy, Intermediate, RASH, 09/03/17) Ciprofloxacin (Verified Allergy, Intermediate, hives, 09/03/17) Imipenem (Verified Allergy, Intermediate, PT REPORTS ITCHING, 09/03/17) Latex (Verified Allergy, Intermediate, hives, 09/03/17) Levofloxacin (Verified Allergy, Intermediate, rash, 09/03/17) Linezolid (Verified Allergy, Intermediate, rash, 09/03/17) Piperacillin (Verified Allergy, Intermediate, SEVERE RASH, HIVES, 09/03/17) Tazobactam (Verified Allergy, Intermediate, SEVERE RASH, HIVES, 09/03/17) Vancomycin (Verified Allergy, Intermediate, rash, 09/03/17) Tobramycin (Verified Allergy, Mild, MILD RASH ON ARM, RED FACE, 09/03/17) IMPROVED AFTER BENADRYL, TAKING REST OF DOSE Amikacin (Verified Allergy, Unknown, PER DR ROBINS,RXN WAS TO ZOSYN NOT AMKrash;hives, 09/03/17) Sulfamethoxazole w/Trimethoprim (Verified Allergy, Unknown, Hives, 09/03/17) Can be pretreated with 10mg Zytrec 45 min prior to admin Buspirone (Verified Adverse Reaction, Severe, HALLUCINATIONS, 09/03/17) Physical Exam Vital Signs Date Time Temp Pulse Resp B/P (MAP) Pulse Ox O2 Delivery O2 Flow Rate FiO2 09/03/17 17:18 94 18 119/81 98 Room Air 09/03/17 15:31 36.8 100 22 115/73 96 Room Air Physical Exam Physical Exam GENERAL: She is oriented to person, place, and time. She appears well- developed and well-nourished. She does not appear distressed. ____ HENT: Exam performed. Head: Normocephalic and atraumatic. Right Ear: External ear normal. No mastoid tenderness. Left Ear: External ear normal. No mastoid tenderness. Mouth/Throat: The oropharynx is clear and moist. No trismus in the jaw. No dental abscesses or uvula swelling. No oropharyngeal exudate or tonsillar abscesses. ____ EYES: Conjunctivae and EOM are normal. Pupils are equal, round, and reactive to light. Right eye exhibits no discharge. Left eye exhibits no discharge. No scleral icterus. ____ NECK: Normal range of motion. Neck supple. No JVD present. No spinous process tenderness present. No carotid bruit present. No rigidity. No tracheal deviation and normal range of motion present. No Brudzinski's sign and no Kernig 's sign noted. ____ CV: Normal rate, regular rhythm, normal heart sounds and intact distal pulses. There is no peripheral edema. Palpable radial pulses bue. ____ PULM/CHEST: Effort normal and breath sounds normal. No respiratory distress. No stridor. She has no wheezes. She has no rales. Chest Wall: She exhibits no tenderness. ____ ABD: The abdomen is soft. Bowel sounds are normal. She has no distension. No mass is present. There is no tenderness. There is no rebound, no guarding, no Stewart's sign and no tenderness at McBurney's point. Rovsig negative NEURO: She is alert and oriented to person, place, and time. She has normal strength. No cranial nerve deficit or sensory deficit. Coordination and gait normal. GCS eye subscore is 4. GCS verbal subscore is 5. GCS motor subscore is 6. Cerebellar tests wnl. ____ PSYCH: She has a normal mood and affect. Her behavior is normal. Judgment and thought content normal. ____ Medical Decision & Procedures Laboratory Results 09/03/17 16:28 Red Blood Count 4.38, Mean Corpuscular Volume 95.7, Mean Corpuscular Hemoglobin 31.3, Mean Corpuscular Hemoglobin Concent 32.7, Mean Platelet Volume 10.1, Neutrophils (%) (Auto) 66.9, Lymphocytes (%) (Auto) 21.7, Monocytes (%) (Auto) 6.8, Eosinophils (%) (Auto) 4.1, Basophils (%) (Auto) 0.3, Neutrophils # (Auto) 5.94, Lymphocytes # (Auto) 1.93, Monocytes # (Auto) 0.60, Eosinophils # (Auto) 0.36, Basophils # (Auto) 0.03 09/03/17 16:28 Test 09/03/17 16:28 09/03/17 16:34 White Blood Count 8.88 K/uL (4.8-10.8) Red Blood Count 4.38 M/uL (4.2-5.4) Hemoglobin 13.7 g/dL (12.0-16.0) Hematocrit 41.9 % (37-47) Mean Corpuscular Volume 95.7 fL (80-100) Mean Corpuscular Hemoglobin 31.3 pg (25-34) Mean Corpuscular Hemoglobin Concent 32.7 g/dl (32-36) Platelet Count 233 K/uL (130-400) Mean Platelet Volume 10.1 fL (7.4-10.4) Neutrophils (%) (Auto) 66.9 % Lymphocytes (%) (Auto) 21.7 % Monocytes (%) (Auto) 6.8 % Eosinophils (%) (Auto) 4.1 % Basophils (%) (Auto) 0.3 % Neutrophils # (Auto) 5.94 K/uL (1.4-6.5) Lymphocytes # (Auto) 1.93 K/uL (1.2-3.4) Monocytes # (Auto) 0.60 K/uL (0.11-0.59) Eosinophils # (Auto) 0.36 K/uL (0-0.5) Basophils # (Auto) 0.03 K/uL (0-0.2) RDW Standard Deviation 53.2 fL (36.4-46.3) RDW Coefficient of Variation 15.0 % (11.5-14.5) Immature Granulocyte % (Auto) 0.2 % Immature Granulocyte # (Auto) 0.02 K/uL (0.00-0.02) Anion Gap 10.0 mmol/L (3-11) Est Creatinine Clear Calc Drug Dose 94.6 ml/min Estimated GFR () 122.0 Estimated GFR (Non- 105.3 BUN/Creatinine Ratio 18.7 (10-20) Calcium Level 8.9 mg/dl (8.5-10.1) Bedside Lactic Acid Venous 1.86 mmol/L (0.90-1.70) Laboratory results reviewed by me Medications Administered Medications (Trade) Dose Ordered Sig/Brenna Route Start Time Stop Time Status Last Admin Dose Admin Cefepime HCl 2000 mg/Dextrose 122 ml @ 200 mls/hr NOW STAT IV 09/03/17 16:37 09/03/17 17:13 DC 09/03/17 17:09 200 MLS/HR ED Course 1552: The patient was evaluated in room C06. A complete history and physical exam was performed. 1559: I discussed the patients case with Dr. Sauceda, [facility] Infectious Disease. She cannot get Cefepime IM and has to get it intravenously. 1605: I discussed the patients case with the IV Team. They report they were unsuccessful with PICC line two days ago and are not comfortable trying today. 1637: Peripheral IV placed by nursing. Ordered Cefepime HCl 2000 mg/Dextrose 122 ml @ 200 mls/hr IV. 1708: Vital signs stable. Labs within normal limits. I discussed with a long time with the patient and family member at bedside, explained to them that it would be best if the patient had a PICC line, however I explained to them that we were unable to place one here in the IV team did not feel that he would be able to place one. I discussed the possibility of a port with the patient, they state that the patient does have a port however they state that they are unable to use the port because she gets recurrent cellulitis in her breast when infusions are given through the port. I discussed with the patient and family member at bedside that I do not feel comfortable discharging them with a peripheral IV in place and would be best if she was placed in the hospital for her to obtain proper venous access whether be via port or PICC line. I discussed the patients case with Dr. Alaniz, [facility] Hospitalist. She understands the patients condition and agrees to accept the patient. The patient will be further evaluated. Medical Decision Vital signs stable. Labs within normal limits. I discussed with a long time with the patient and family member at bedside, explained to them that it would be best if the patient had a PICC line, however I explained to them that we were unable to place one here in the IV team did not feel that he would be able to place one. I discussed the possibility of a port with the patient, they state that the patient does have a port however they state that they are unable to use the port because she gets recurrent cellulitis in her breast when infusions are given through the port. I discussed with the patient and family member at bedside that I do not feel comfortable discharging them with a peripheral IV in place and would be best if she was placed in the hospital for her to obtain proper venous access whether be via port or PICC line. I discussed the patients case with Dr. Alaniz [facility] Hospitalist. She understands the patients condition and agrees to accept the patient. The patient will be further evaluated. Medication Reconcilliation Current Medication List: was personally reviewed by me Blood Pressure Screening Patient's blood pressure: Normal blood pressure Consults Time Called: 1556 Consulting Physician: Dr. Sauceda [facility] Infectious Disease Returned Call: 1559 I discussed the patients case with Dr. Sauceda [facility] Infectious Disease. She cannot get Cephapene IM and has to get it intravenously. Additional Consults: Time Called: 1708 Consulted Physician: Dr. Alaniz [facility] Hospitalist Returned Call: 1708 Additional Comments: I discussed the patients case with Dr. Alaniz [facility] Hospitalist. She understands the patients condition and agrees to accept the patient. The patient will be further evaluated. Impression Primary Impression: UTI (urinary tract infection) Additional Impression: Failure of outpatient treatment Scribe Attestation The scribe's documentation has been prepared under my direction and personally reviewed by me in its entirety. I confirm that the note above accurately reflects all work, treatment, procedures, and medical decision making performed by me. The chart was completed utilizing [employer] Speech voice recognition software. Grammatical errors, random word insertions, pronoun errors, and incomplete sentences are an occasional consequence of this system due to software limitations, ambient noise, and hardware issues. Any formal questions or concerns about the content, text, or information contained within the body of this dictation should be directly addressed to the physician for clarification. Departure Information Dispostion Being Evaluated By Hospitalist Referrals Gela Boone M.D. (PCP) Patient Instructions My [facility] Problem Qualifiers Primary Impression: UTI (urinary tract infection) Urinary tract infection type: site unspecified Hematuria presence: without hematuria Qualified Codes: N39.0 - Urinary tract infection, site not specified
[2017-09-03] MEDS ORDERED: CEFEPIME IV 2,000 MG in DEXTROSE 5% 100ML 100 ML IV STA (16:37)
[2017-09-03 16:38] LABS: BASO % 0.3 %; BASO ABS # 0.03 K/uL (0-0.2); EOS % 4.1 %; EOS ABS # 0.36 K/uL (0-0.5); HEMATOCRIT 41.9 % (37-47); HEMOGLOBIN 13.7 g/dL (12.0-16.0); IG# 0.02 K/uL (0.00-0.02); LYMPH % 21.7 %; LYMPH ABS # 1.93 K/uL (1.2-3.4); MEAN CELL VOLUME 95.7 fL (80-100); MEAN CORPUSCULAR HEMOGLOBIN 31.3 pg (25-34); MEAN CORPUSCULAR HGB CONC 32.7 g/dl (32-36); MEAN PLATELET VOLUME 10.1 fL (7.4-10.4); MONO % 6.8 %; NEUT % 66.9 %; NEUT ABS # 5.94 K/uL (1.4-6.5); PLATELET COUNT 233 K/uL (130-400); RED CELL DISTRIBUTION WIDTH SD 53.2 fL (36.4-46.3); WHITE BLOOD COUNT 8.88 K/uL (4.8-10.8)
[2017-09-03 17:05] LABS: CALCIUM 8.9 mg/dl (8.5-10.1); CREATININE 0.76 mg/dl (0.60-1.20); POTASSIUM 3.7 mmol/L (3.5-5.1)
[2017-09-03] MEDS ORDERED: ONDANSETRON 4MG OD TAB SL PRN (17:45)
[2017-09-03] MEDS ORDERED: POLYETHYLENE (MIRALAX) 17 GM PACK PO PRN (17:45)
[2017-09-03] MEDS ORDERED: CEFEPIME IV 2,000 MG in DEXTROSE 5% 100ML 100 ML IV SCH (17:45)
[2017-09-03] MEDS ORDERED: ONDANSETRON INJ 2 MG/ML 2 ML VIAL IV PRN (17:45)
[2017-09-03] MEDS ORDERED: ACETAMINOPHEN 325 MG TAB PO PRN (17:45)
[2017-09-03] MEDS ORDERED: MAGNESIUM HYDROXIDE SUSP 30 ML UDC PO PRN (17:45)
[2017-09-03] MEDS ORDERED: MECLIZINE HCL 25 MG TAB PO PRN (17:45)
[2017-09-03] MEDS ORDERED: ALBUTEROL HFA INHALER 8.5 GM INH PRN (17:45)
[2017-09-03] MEDS ORDERED: MENTHOL-ZINC OXIDE 360 APPLN/120 GM TUBE EXT PRN (17:45)
[2017-09-03] MEDS ORDERED: LEVALBUTEROL 0.63MG/3 ML NEB INH PRN (17:45)
--- NOTE | 2017-09-03 18:04 | History and Physical ---
History & Physical Date & Time of Service: Sep 03, 2017 at 17:51 Chief Complaint: Iv Access Doesnt Work Primary Care Physician: Gela Boone M.D. History of Present Illness Source: patient, family 32 y/o F c/o loss of IV access. Pt was seen by Dr. Sauceda last week and it was determined that she had a UTI via UA and + cx. She has hx of recurrent UTI due to catheter status and he recommended a course of cefepime 2g Q8h x7 days for this. A PICC was attempted on Monday as an outpt, however they were unable to place this. She was sent home with a peripheral, which she was able to use until they attempted her AM dosing today. Home Health was contacted and came to their home. They were able to place a new peripheral line and pt received her AM dose. Prior to getting her 2pm dose, her new peripheral was lost. was again called, however they told her they would not be able to get to pt's home until 5p and she should come to the ED. In the ED, further attempts were made and pt does have a peripheral near the wrist, however it's durability is questionably. She was able to get her afternoon dose of cefepime around 5p today. Pt does have a port in place, however due to recent R breast cellulitis and its proximity to that area, it cannot be used. Surgery is waiting for thigh cellulitis to clear prior to placing a new port. Pt otherwise feels at her usual. She has a R posterior thigh cellulitis that has been present since March and she and her mother feel it is much improved. Her wound vac was recently d/c'd and she follows with [facility] closely. She has daily dressing changes. She was also recently started on augmentin for a sinus infection after c/o migraine. She tolerates PO, although her mother reports that her appetite has been down with less fluid intake than usual. Pt has chronic nausea and this is at her baseline. Pt denies fever, SOB, chest pain, abd pain, v/c/d, LE pain or swelling. Past Medical/Surgical History Medical Problems: (1) Abdominal pain (2) Acute mastitis of right breast (3) Acute pyelonephritis (4) Acute sinusitis (5) Allergic reaction (6) Allergic reaction (7) Allergic reaction caused by a drug (8) Anxiety (9) Asthma (10) Asthma exacerbation (11) Asthma with exacerbation (12) Bilateral leg pain (13) Cellulitis (14) Cellulitis of hip, right (15) Cellulitis of right buttock (16) Chronic headache (17) Chronic UTI (urinary tract infection) (18) Complicated urinary tract infection (19) Complicated UTI (urinary tract infection) (20) Decubitus ulcer of right leg, stage 4 (21) Dehydration (22) Delusions (23) Diarrhea (24) Diplopia (25) Drowsiness (26) Encounter for care related to vascular access port (27) Failure of outpatient treatment (28) Gabapentin overdose (29) Gastroparesis (30) GERD (gastroesophageal reflux disease) (31) Headache (32) Headache (33) Hydrocephalus (34) Hypokalemia (35) Hypokalemia (36) Hypokalemia (37) Hypothyroidism (38) Infection due to highly antibiotic-resistant Pseudomonas (39) Intractable headache (40) Intractable pain (41) Laceration (42) Leg pain, right (43) Low back pain (44) Lower abdominal pain (45) Lower abdominal pain (46) Migraines (47) Mood disorder (48) Mood disorder (49) MRSA (methicillin resistant Staphylococcus aureus) (50) Multiple drug resistant organism (MDRO) culture positive (51) Nausea (52) Nausea (53) Need for intravenous access (54) Nonhealing nonsurgical wound with necrosis of muscle (55) Occipital neuralgia of right side (56) Osteomyelitis (57) Paranoia (58) Pelvic pain (59) Pulmonary embolism (60) Right flank pain (61) Right leg pain (62) Right upper quadrant abdominal pain (63) Right-sided chest wall pain (64) Schizoaffective disorder, bipolar type (65) Self-harming behavior (66) Shunt malfunction (67) Shunt malfunction (68) Shunt placement with revision x8 (69) Spina bifida (70) Suicidal ideation (71) Suicidal ideation (72) Suicidal ideation (73) Suprapubic catheter (74) Suprapubic pain (75) Urinary tract infection (76) Urinary tract infection (77) Urinary tract infection (78) UTI (urinary tract infection) (79) UTI (urinary tract infection) (80) UTI (urinary tract infection) (81) Weakness (82) Yeast dermatitis Surgical Problems: (1) S/P BKA (below knee amputation) bilateral Family History Cancer Diabetes mellitus Lung disease Social History Smoking Status: Never Smoker Alcohol Use: none Drug Use: none Marital Status: single Housing status: lives with family Occupational Status: disabled Immunizations History of Influenza Vaccine: Unknown History of Tetanus Vaccine?: Unknown History of Pneumococcal: Unknown History of Hepatitis B Vaccine: Unknown Allergies Coded Allergies: Adhesives (Verified Allergy, Intermediate, TAPE- HIVES, 09/03/17) Ceftriaxone (Verified Allergy, Intermediate, rash, 09/03/17) Has tolerated cefepime and Zerbaxa Chlorhexidine (Verified Allergy, Intermediate, RASH, 09/03/17) Ciprofloxacin (Verified Allergy, Intermediate, hives, 09/03/17) Imipenem (Verified Allergy, Intermediate, PT REPORTS ITCHING, 09/03/17) Latex (Verified Allergy, Intermediate, hives, 09/03/17) Levofloxacin (Verified Allergy, Intermediate, rash, 09/03/17) Linezolid (Verified Allergy, Intermediate, rash, 09/03/17) Piperacillin (Verified Allergy, Intermediate, SEVERE RASH, HIVES, 09/03/17) Tazobactam (Verified Allergy, Intermediate, SEVERE RASH, HIVES, 09/03/17) Vancomycin (Verified Allergy, Intermediate, rash, 09/03/17) Tobramycin (Verified Allergy, Mild, MILD RASH ON ARM, RED FACE, 09/03/17) IMPROVED AFTER BENADRYL, TAKING REST OF DOSE Amikacin (Verified Allergy, Unknown, PER DR ROBINS,RXN WAS TO ZOSYN NOT AMKrash;hives, 09/03/17) Sulfamethoxazole w/Trimethoprim (Verified Allergy, Unknown, Hives, 09/03/17) Can be pretreated with 10mg Zytrec 45 min prior to admin Buspirone (Verified Adverse Reaction, Severe, HALLUCINATIONS, 09/03/17) Home Medications Scheduled Amoxicillin & Pot Clavulanate (Augmentin 875-125 mg), 875 MG PO BID Benztropine Mesylate (Benztropine Mesylate), 1 MG PO BID Cefepime Hcl (Cefepime), 2 GM IV TID Cetirizine (Zyrtec), 10 MG PO DAILY Cholecalciferol (Vitamin D), 2,000 INTER.UNIT PO BID Cyanocobalamin (Vitamin B-12), 500 MCG PO DAILY Docusate Sodium (Colace), 100 MG PO BID Doxycycline (Monohydrate) (Doxycycline), 100 MG PO BID Famotidine (Pepcid), 40 MG PO DAILY Ferrous Sulfate (Ferrous Sulfate), 325 MG PO BID Fluticasone Prop/Salmeterol (Advair Diskus 500/50 60 Dose), 1 PUFF INH BID Gabapentin (Gabapentin), 300 MG PO BID Hydroxyzine HCl (Hydroxyzine Pamoate), 50 MG PO HS Hydroxyzine HCl (Hydroxyzine HCl), 25 MG PO QAM Hyoscyamine Sulfate (Levsin), 0.125 MG PO TID Levothyroxine Sodium (Levothyroxine Sodium), 75 MCG PO QAM Linaclotide (Linzess), 290 MCG PO QAM Starrucca Carbonate (Starrucca Carbonate), 600 MG PO QPM Starrucca Carbonate Er (Lithobid Ext Rel), 450 MG PO QAM Montelukast Sod (Montelukast Sodium), 10 MG PO HS Multiple Vitamin (Multivitamin), 1 TAB PO DAILY Nystatin (Topical) (Nystop), 1 APPLN TOP UD Pantoprazole (Pantoprazole Sodium), 40 MG PO DAILY Potassium Chloride (Potassium Chloride ER), 40 MEQ PO AMPM Probiotic Product (Probiotic), 1 CAP PO TID Senna (Senokot), 8.6 MG PO BID Sucralfate (Carafate), 10 ML PO QID Topiramate (Qudexy Xr), 100 MG PO BID Trazodone Hcl (Trazodone), 150 MG PO HS Venlafaxine Hcl (Effexor Xr), 150 MG PO QAM Scheduled PRN Albuterol Sulfate (Proair Respiclick), 2 PUFFS INH TID PRN for SOB/Wheezing Levalbuterol (Levalbuterol HCl), 3 ML NEB Q4H PRN for Shortness of Breath Meclizine Hcl (Meclizine Hcl), 25 MG PO TID PRN for Dizziness or Vertigo Menthol-Zinc Oxide (Calmoseptine), 1 APPLN TOP DAILY PRN for Skin Irritation Ondasetron Odt (Zofran Odt), 4 MG SL Q8 PRN for Nausea Oxycodone HCl (Oxycodone HCl), 5-10 MG PO Q8 PRN for Pain Polyethylene Glycol 3350 (Miralax), 17 GM PO DAILY PRN for Constipation Review of Systems Pertinent positives and negatives reviewed in HPI--all others negative Physical Exam Vital Signs Date Time Temp Pulse Resp B/P (MAP) Pulse Ox O2 Delivery O2 Flow Rate FiO2 09/03/17 17:18 94 18 119/81 98 Room Air 09/03/17 15:31 36.8 100 22 115/73 96 Room Air General Appearance: no apparent distress, + obese Head: normocephalic, atraumatic Eyes: normal inspection, sclerae normal Respiratory/Chest: normal breath sounds, no respiratory distress Cardiovascular: regular rate, rhythm, no edema Abdomen/GI: non tender, soft Extremities/Musculoskelatal: no pedal edema, + pertinent finding (neg LE TTP) Neurologic/Psych: alert, oriented x 3 Skin: normal color, warm/dry Diagnostics Laboratory Results Results Past 24 Hours Test 09/03/17 16:28 09/03/17 16:34 Range/Units White Blood Count 8.88 4.8-10.8 K/uL Red Blood Count 4.38 4.2-5.4 M/uL Hemoglobin 13.7 12.0-16.0 g/dL Hematocrit 41.9 37-47 % Mean Corpuscular Volume 95.7 80-100 fL Mean Corpuscular Hemoglobin 31.3 25-34 pg Mean Corpuscular Hemoglobin Concent 32.7 32-36 g/dl Platelet Count 233 130-400 K/uL Mean Platelet Volume 10.1 7.4-10.4 fL Neutrophils (%) (Auto) 66.9 % Lymphocytes (%) (Auto) 21.7 % Monocytes (%) (Auto) 6.8 % Eosinophils (%) (Auto) 4.1 % Basophils (%) (Auto) 0.3 % Neutrophils # (Auto) 5.94 1.4-6.5 K/uL Lymphocytes # (Auto) 1.93 1.2-3.4 K/uL Monocytes # (Auto) 0.60 0.11-0.59 K/uL Eosinophils # (Auto) 0.36 0-0.5 K/uL Basophils # (Auto) 0.03 0-0.2 K/uL RDW Standard Deviation 53.2 36.4-46.3 fL RDW Coefficient of Variation 15.0 11.5-14.5 % Immature Granulocyte % (Auto) 0.2 % Immature Granulocyte # (Auto) 0.02 0.00-0.02 K/uL Sodium Level 139 136-145 mmol/L Potassium Level 3.7 3.5-5.1 mmol/L Chloride Level 108 98-107 mmol/L Carbon Dioxide Level 21 21-32 mmol/L Anion Gap 10.0 3-11 mmol/L Blood Urea Nitrogen 14 7-18 mg/dl Creatinine 0.76 0.60-1.20 mg/dl Est Creatinine Clear Calc Drug Dose 94.6 ml/min Estimated GFR () 122.0 Estimated GFR (Non- 105.3 BUN/Creatinine Ratio 18.7 10-20 Random Glucose 120 70-99 mg/dl Calcium Level 8.9 8.5-10.1 mg/dl Bedside Lactic Acid Venous 1.86 0.90-1.70 mmol/L Impression Assessment and Plan 32 y/o F who was admitted for observation for failed outpt IV access. Failed IV access: as noted in HPI PICC consent on chart UTI: hx of complicated UTIs due to indwelling arango Able to get 2nd dose around 5p, which is about 3 hours after it was due Family has dosing at home and would prefer to use this as they have already paid for it To bring in later tonight Asthma: stable, continue home meds R posterior thigh wound: continue dressing changes QD as at home follows with [facility] if needed Sinus infection: continue augmentin Paraplegia: stable Other: Full code Pt is at her baseline mobility status, which is bedridden. Will not order rx DVT proph to avoid bleeding issues give no change from her usual ambulation status and likely DC in AM s/p PICC placement Reg diet Resuscitation Status VTE Prophylaxis Will order VTE Prophylaxis: No Reason for no VTE drug order: Treatment not indicated Reason no Mechanical VTE Order: Treatment not tolerated
[2017-09-03 18:54] VITALS: O2SAT 99
[2017-09-03] MEDS ORDERED: NON-FORMULARY MEDICATION (Probiotic Product (Probiotic) 1 CAP) PO SCH (20:00)
[2017-09-03 20:02] VITALS: BP 117/78; PULSE 89; TEMP 36.4; O2SAT 100
[2017-09-03] MEDS ORDERED: MoRPHine SULFATE 4 MG/ML 1 ML CARP\\VIAL IV PRN (20:15)
[2017-09-03] MEDS ORDERED: PROCHLORPERAZINE INJ 5 MG in SYRINGE 4 ML IV PRN (20:15)
[2017-09-03] MEDS ORDERED: PROCHLORPERAZINE INJ 5 MG in SYRINGE 4 ML IV ONE (20:15)
[2017-09-03] MEDS ORDERED: LITHIUM CARBONATE 300 MG TAB PO SCH (21:00)
[2017-09-03] MEDS: SODIUM CHLORIDE 0.9% 1000ML 1,000 ML IV SCH (21:37)
[2017-09-03] MEDS: DOXYCYCLINE HYCLATE 100 MG CAP PO SCH (21:38)
[2017-09-03] MEDS: DOCUSATE SODIUM 100 MG CAP PO SCH (21:39)
[2017-09-03] MEDS: GABAPENTIN 300 MG CAP PO SCH (21:40)
[2017-09-03] MEDS: SUCRALFATE 1 GM/10 ML UDC PO SCH (21:40)
[2017-09-03] MEDS: SENNA 8.6 MG TAB PO SCH (21:41)
[2017-09-03] MEDS: POTASSIUM CHLORIDE 20 MEQ TABCR PO SCH (21:41)
[2017-09-03] MEDS: FERROUS SULFATE 325 MG TAB PO SCH (21:42)
[2017-09-03] MEDS: AMOXICILLIN/CLAVULANATE TAB 875 MG TAB PO SCH (21:43)
[2017-09-03] MEDS: BENZTROPINE MESYLATE 1 MG TAB PO SCH (21:43)
[2017-09-03] MEDS: HYOSCYAMINE SULFATE 0.125 MG SL TAB PO SCH (21:44)
[2017-09-03] MEDS: FLUTICASONE/SALMETEROL (ADVAIR) 500/50 INH 14 PUFF INH SCH (21:45)
[2017-09-03] MEDS: CHOLECALCIFEROL 1000 INTER.UNIT TAB PO SCH (21:45)
[2017-09-03] MEDS ORDERED: hydrOXYzine HCL 25 MG TAB PO SCH (22:00)
[2017-09-03] MEDS ORDERED: MONTELUKAST SOD 10 MG TAB PO SCH (22:00)
[2017-09-03] MEDS ORDERED: TRAZODONE HCL 50 MG TAB PO SCH (22:00)
[2017-09-03] MEDS ORDERED: NURSING VERBAL MED ORDER ONE (22:15)
[2017-09-03 23:14] VITALS: BP 93/55; PULSE 101; TEMP 36.8; O2SAT 94
[2017-09-03] MEDS ORDERED: IV FLUIDS COMPLETED PRN (23:15)
[2017-09-03 23:51] VITALS: BP 95/55; PULSE 101; TEMP 36.8; Ht 119.4 cm; Wt 115.0 kg
[2017-09-04] MEDS ORDERED: MoRPHine SULFATE 2 MG/ML CARP IV STA (00:18)
[2017-09-04] MEDS ORDERED: ONDANSETRON 4MG OD TAB PO PRN (00:30)
[2017-09-04] MEDS: CEFEPIME 2 GM VIAL IV SCH ×3 (01:17→14:51)
[2017-09-04] MEDS ORDERED: LEVOTHYROXINE 75 MCG TAB PO SCH (06:30)
[2017-09-04] MEDS: MoRPHine SULFATE 2 MG/ML CARP IV PRN ×2 (06:47→09:58)
[2017-09-04 07:22] VITALS: BP 112/69; PULSE 89; TEMP 36.7; O2SAT 95
[2017-09-04] MEDS ORDERED: PANTOprazole SOD 40 MG TAB PO SCH (08:00)
[2017-09-04] MEDS ORDERED: LITHIUM CARBONATE 450 MG TABCR PO SCH (08:00)
[2017-09-04] MEDS ORDERED: FAMOTIDINE 20 MG TAB PO SCH (08:00)
[2017-09-04] MEDS ORDERED: MULTIVITAMIN TAB PO SCH (08:00)
[2017-09-04] MEDS ORDERED: CYANOCOBALAMIN 500 MCG TAB (VIT B-12) PO SCH (08:00)
[2017-09-04] MEDS ORDERED: CETIRIZINE HCL 10 MG TAB PO SCH (08:00)
[2017-09-04] MEDS ORDERED: hydrOXYzine HCL 25 MG TAB PO SCH (08:00)
[2017-09-04] MEDS ORDERED: NYSTATIN POWDER 15GM BTL EXT SCH (08:00)
[2017-09-04] MEDS ORDERED: VENLAFAXINE HCL XR 150 MG CAPXR PO SCH (08:00)
[2017-09-04] MEDS: FLUTICASONE/SALMETEROL (ADVAIR) 500/50 INH 14 PUFF INH SCH (09:06)
[2017-09-04] MEDS: AMOXICILLIN/CLAVULANATE TAB 875 MG TAB PO SCH (09:06)
[2017-09-04] MEDS: FERROUS SULFATE 325 MG TAB PO SCH (09:06)
[2017-09-04] MEDS: HYOSCYAMINE SULFATE 0.125 MG SL TAB PO SCH ×2 (09:07→13:41)
[2017-09-04] MEDS: CHOLECALCIFEROL 1000 INTER.UNIT TAB PO SCH (09:07)
[2017-09-04] MEDS: DOCUSATE SODIUM 100 MG CAP PO SCH (09:08)
[2017-09-04] MEDS: DOXYCYCLINE HYCLATE 100 MG CAP PO SCH (09:08)
[2017-09-04] MEDS: GABAPENTIN 300 MG CAP PO SCH (09:08)
[2017-09-04] MEDS: SUCRALFATE 1 GM/10 ML UDC PO SCH ×2 (09:09→13:41)
[2017-09-04] MEDS: BENZTROPINE MESYLATE 1 MG TAB PO SCH (09:09)
[2017-09-04] MEDS: SENNA 8.6 MG TAB PO SCH (09:10)
[2017-09-04] MEDS: POTASSIUM CHLORIDE 20 MEQ TABCR PO SCH (09:11)
--- NOTE | 2017-09-04 14:50 | Discharge Instructions ---
Discharge Instructions Date of Service Sep 04, 2017. Admission Reason for Admission: Need For Intravenous Access Discharge Discharge Diagnosis / Problem: Lost IV access Discharge Goals Goal(s): Decrease discomfort, Improve function, Increase independence Activity Recommendations Activity Limitations: resume your previous activity . Instructions / Follow-Up Instructions / Follow-Up Dr. Sauceda as scheduled prior Current Hospital Diet Patient's current hospital diet: Regular Diet Discharge Diet Recommended Diet: Regular Diet Pending Studies Studies pending at discharge: no Medical Emergencies . Who to Call and When: Medical Emergencies: If at any time you feel your situation is an emergency, please call 911 immediately. . Non-Emergent Contact Non-Emergency issues call your: Primary Care Provider . . "Provider Documentation" section prepared by Mamta Tracy. .
--- NOTE | 2017-09-04 14:51 | Discharge Summary ---
Discharge Summary Date of Service Sep 04, 2017. Discharge Summary Admission Date: Sep 03, 2017 at 17:44 Discharge Date: Sep 04, 2017 Discharge Disposition: Home with services Principal Diagnosis: Lost IV access Immunizations: Have You Had Influenza Vaccine: Unknown History of Tetanus Vaccine?: Unknown History of Pneumococcal: Unknown History of Hepatitis B Vaccine: Unknown Hospital Course 32 y/o F who was admitted for observation for failed outpt IV access. Failed IV access: as noted in [facility] PICC consent on chart UTI: hx of complicated UTIs due to indwelling arango Able to get 2nd dose around 5p, which is about 3 hours after it was due Family has dosing at home and would prefer to use this as they have already paid for it To bring in later tonight Asthma: stable, continue home meds R posterior thigh wound: continue dressing changes QD as at home follows with [facility] if needed Sinus infection: continue augmentin Paraplegia: stable Other: Full code Pt is at her baseline mobility status, which is bedridden. Will not order rx DVT proph to avoid bleeding issues give no change from her usual ambulation status and likely DC in AM s/p PICC placement Reg diet Total Time Spent: Greater than 30 minutes This includes examination of the patient, discharge planning, medication reconciliation, and communication with other providers. Discharge Instructions Please refer to the electronic Patient Visit Report (Discharge Instructions) for additional information. Follow-Up Dr. Sauceda as scheduled prior Additional Copies To Gela Boone M.D. Reviewed: Pt Seen/Exam by Me History Pt is doing well today. PICC was inserted and used without issue. She would like to go home. She has her baseline nausea but has tolerated PO without issue. Pt denies fever, SOB, chest pain, abd pain, v/c/d, LE pain or swelling. General Appearance: no apparent distress, obese Eye Exam: bilateral eye normal inspection, bilateral eye other (nml sclera) Respiratory: normal breath sounds, no respiratory distress Cardiovascular: normal peripheral pulses, regular rate, rhythm Gastrointestinal: non tender, soft Extremities: non-tender, no pedal edema Neurologic/Psychiatric: alert, oriented x 3 Skin Characteristics: normal color, warm/dry Assessment/Plan 32 y/o F who was admitted for observation for failed outpt IV access. Failed IV access: as noted in [facility] PICC placed today and utilized without issue UTI: hx of complicated UTIs due to indwelling arango Continue abx as prior Asthma: stable, continue home meds R posterior thigh wound: continue dressing changes QD as at home follows with [facility] if needed Sinus infection: continue augmentin Paraplegia: stable
[2017-09-04 16:08] VITALS: BP 112/69; PULSE 89; TEMP 36.7; O2SAT 95
[2017-09-04] MEDS: SODIUM CHLORIDE 0.9% 1000ML 1,000 ML IV SCH (16:30)
[2017-09-07] MEDS ORDERED: FLUC100T4 PO (15:09)
== END 2017-09-04 16:55 | disposition home health service (06) ==
LOC: C.EDB 15:26 → UNDOADMOB 17:44 → C.MS4W 17:44 → ENRESERV 18:33
PROVIDERS: ADMIT Family Medicine; ATTEND Family Medicine
DX: T83.511A Infection and inflammatory reaction due to indwelling urethral catheter, initial encounter (principal); N39.0 Urinary tract infection, site not specified; Y84.6 Urinary catheterization as the cause of abnormal reaction of the patient, or of later complication, without mention of misadventure at the time of the procedure; J45.909 Unspecified asthma, uncomplicated; E03.9 Hypothyroidism, unspecified; K21.9 Gastro-esophageal reflux disease without esophagitis; F25.0 Schizoaffective disorder, bipolar type; Z86.14 Personal history of Methicillin resistant Staphylococcus aureus infection; Z87.440 Personal history of urinary (tract) infections; Z86.711 Personal history of pulmonary embolism; Z89.511 Acquired absence of right leg below knee; Z89.512 Acquired absence of left leg below knee; Z91.040 Latex allergy status; Z88.2 Allergy status to sulfonamides; Z88.1 Allergy status to other antibiotic agents; Z83.3 Family history of diabetes mellitus; Z82.5 Family history of asthma and other chronic lower respiratory diseases

== ENCOUNTER → 2017-09-11 | Outpatient (CLI) | payer BC, OTHER ==
[~2017-09-11] MED LIST changes: -AMOX875T PO; -CEFE2INJ2 IV; +FLUC100T4 PO; +LEVO88TA3 PO; +PRENTAB26 PO; +RISP2TAB22 PO
--- NOTE | 2017-09-20 09:22 | CODING QUERY NO DIAGNOSIS ---
Valid Physician Order Needed A valid physician order must be submitted in order to properly bill for the service(s) provided, including date of service(s), valid diagnosis, and physician signature. If these tests are done on a recurring basis the original physician order must be submitted in order to code and bill for the service(s) provided. Please fax us the original, signed physician order so that we may expedite billing to [phone] DOS 09/11/2017 * URINE CULTURE * URINE M.I.C. SENSITIVITY * ID, URINE CULTURE ISOLATE * URINALYSIS WITH MICROSCOPY Thank you [facility] Information Management
== END | disposition home or self-care (01) ==
LOC: C.LABSPEC 11:46
PROVIDERS: ATTEND Internal Medicine Infectious Disease
DX: Z01.89 Encounter for other specified special examinations (principal)

== ENCOUNTER 2017-09-16 07:15 | Emergency (ER) | payer BC, OTHER ==
[~2017-09-16 07:15] MED LIST changes: -LEVO88TA3 PO; -PRENTAB26 PO; -RISP2TAB22 PO
[2017-09-16 07:18] VITALS: TEMP 36.7; Ht 119.4 cm
[2017-09-16] MEDS ORDERED: PROCHLORPERAZINE 5 MG/ML 2 ML VIAL IV STA (07:34)
[2017-09-16] MEDS ORDERED: DiphenhydrAMINE HCL 50 MG/ML VIAL IV STA (07:34)
[2017-09-16] MEDS ORDERED: SODIUM CHLORIDE 0.9% 1000ML 1,000 ML IV STA (07:34)
[2017-09-16] MEDS ORDERED: DEXAMETHASONE SOD INJ 4 MG/ML VIAL IV STA (07:34)
[2017-09-16] MEDS ORDERED: MoRPHine SULFATE 10 MG/ML CARP/VIAL IV STA (07:34)
--- NOTE | 2017-09-16 08:04 | EMERGENCY ROOM VISIT NOTE ---
ED Visit Note First contact with patient: 07:22 CHIEF COMPLAINT: Headache, concern for shunt malfunction HISTORY OF PRESENTING ILLNESS: This is a 32-year-old female with past medical history of spina bifida, wheelchair-bound, with a BINDER AND BOX BUILDER shunt for hydrocephalus, chronic migraines, suprapubic catheter with frequent UTIs, who presents to the emergency department with complaint of severe headache for the past 1-1/2 weeks got significantly worse last night, is constant, worse with lying flat, better with sitting up, 10/10. She has been taking her prescribed oxycodone without improvement. She has associated nausea and photophobia, denies any fevers/chills , vomiting, vision changes, neck pain/stiffness, chest pain, SOB, abdominal pain , back pain, foul smelling urine, or unusual rash. She is concerned that her shunt is malfunctioning, states this headache feels different from her migraines. She has a programmable shunt, it was last replaced two years ago by Dr. Hoskins at [facility], and has been functioning well. She was recently treated for a multi-drug resistant UTI with IV antibiotics, still has a PICC line in place, and is currently on Doxycycline to treat skin wounds on her right leg that are followed by the wound clinic. REVIEW OF SYSTEMS: A complete 10 point review of systems was reviewed with the patient with pertinent positives and negatives as per history of present illness. All else were negative. PAST MEDICAL HISTORY: Reviewed in chart. SOCIAL HISTORY: Lives at home with family. Denies tobacco, alcohol, recreational drug use. ALLERGIES: Reviewed in chart. PHYSICAL EXAM: CONSTITUTIONAL: Pleasant and cooperative. No acute distress. Moderately dehydrated. Obese. HEENT: Normocephalic, atraumatic. Pupils equal, round and reactive to light, EOMI. TMs normal. Pharynx normal. Dry mucus membranes. NECK: Supple, full active range of motion without discomfort. No cervical adenopathy. RESPIRATORY: Clear to auscultation bilaterally with no wheezing, crackles, rhonchi or stridor. Equal expansion bilaterally. CARDIOVASCULAR: Regular rate and rhythm with no murmurs, rubs or gallops. Normal peripheral perfusion. No edema. GASTROINTESTINAL: Soft, nontender, nondistended, obese. No rebound tenderness or guarding. No palpable masses or HSM. Bowel sounds present in all quadrants. MUSCULOSKELETAL: Full range of motion of all joints without discomfort. Bilateral below knee amputations. INTEGUMENTARY: No rash or other significant dermatologic conditions noted. NEUROLOGIC: Alert and oriented X 4 with normal affect. Cranial nerves II-XII grossly intact, no facial droop. No pronator drift. No focal neurologic deficits noted. Strength and sensation intact in all four extremities. Normal speech. ED COURSE AND MEDICAL DECISION MAKING: CC: Patient presenting with complaint of headache DIFFERENTIAL DIAGNOSIS: Includes, but not limited to BINDER AND BOX BUILDER shunt malfunction, acute intracranial bleed, migraine, tension headache, sinus infection, meningitis, encephalitis, mass or mass effect, dehydration, infection, among others. INTERPRETATION OF LABS: No leukocytosis, no anemia, no significant electrolyte abnormalities, normal renal function, normal liver enzymes. Elevated TSH. Supratherapeutic lithium level. UA appears dirty, culture pending for confirmation. EKG INTERPRETATION: Shows normal sinus rhythm with a rate of 80 bpm, no acute ischemic changes noted, no ectopy, no significant changes noted when compared to previous EKG from 03/15/2017 by my interpretation. IMAGING: CT HEAD WITHOUT CONTRAST (CT) CLINICAL HISTORY: Severe headache, nausea, dizziness, double vision, possible shunt dysfunction COMPARISON STUDY: 08/27/2017 TECHNIQUE: Axial CT of the brain is performed from the vertex to the skull base. IV contrast was not administered for this examination. A dose lowering technique was utilized adhering to the principles of ALARA. CT DOSE: 537.48 mGy.cm FINDINGS: No intra or extra-axial mass lesions are visualized. There is no CT evidence of acute cortical infarction. There is no evidence of midline shift. There is no acute hemorrhage. No calvarial fractures are visualized. There is a right frontal shunt catheter present. There is no ventricular dilatation. The frontal horns remain slit like. There is an old right occipital dianne hole. Prominent interhemispheric occipital and posterior parietal sulci remain stable. There is fullness at the level of the foramen magnum. A Chiari malformation cannot be excluded. There is persistent mucosal fluid/thickening within the left maxillary sinus. There are opacified left ethmoid air cells. There is trace fluid within a hypoplastic left frontal sinus. There is stable calvarial thickening IMPRESSION: 1. Inflammatory changes in the left paranasal sinuses 2. No change in the position of the right frontal shunt catheter. No hydrocephalus. The frontal horns remain slitlike. 3. 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 MEDICATION RECONCILIATION: I attest that I have personally reviewed the patient 's current medication list. INITIAL VITAL SIGNS REVIEW: I reviewed the patient's initial vital signs and interpret them as follows: T: Afebrile; BP: Normotensive; HR: Within normal limits; RR: Mildly tachypneic; Pulse Ox: Within normal limits on room air. Blood pressure screening: The patient was found to have normal blood pressure on screening and does not require follow-up for repeat blood pressure check. SUMMARY: Patient was evaluated at bedside, history and physical exam performed. Patient is alert and oriented, in no acute distress, sitting calmly in her wheelchair in the exam room. She is accompanied by her mother. Neurologic exam is intact with no focal deficits appreciated. Patient is complaining of 10/10 headache which she states has not been improved with her oxycodone. Patient is in no acute distress, and is in good spirits, laughing and talkative. She appears moderately dehydrated, and is noted to be afebrile and not tachycardic. Orders were placed at bedside for labs, UA and urine culture, IV fluids and migraine cocktail of Compazine, Benadryl, Decadron, and morphine, and CT head to evaluate for BINDER AND BOX BUILDER shunt malfunction. Patient discussed with Dr. Lyman, who agrees with my assessment and plan. Labs and imaging reviewed as above, noting mildly supratherapeutic lithium level and elevated TSH, I recommended the patient hold her lithium dose today and discuss adjustment of her medications with her PCP. UA appears dirty, I suspect patient is colonized due to her suprapubic catheter. Urine culture pending for confirmation. No other objective findings concerning for infection. CT of the head is unremarkable, specifically no evidence of BINDER [employer] BOX BUILDER shunt malfunction. Patient reassessed multiple times throughout ED stay, she appears more comfortable, and states her headache is a little bit better after treatment. Patient was updated on all results and plan for discharge, she was encouraged to follow-up with her PCP, neurosurgeon, and headache specialist for ongoing management of her headaches. Patient and her mother were also given strict return precautions should her symptoms worsen, they verbalized understanding. Patient was discharged home in stable condition and ambulatory. Problem List Medical Problems: (1) Anxiety Status: Chronic (2) Asthma Status: Chronic (3) Gastroparesis Status: Chronic (4) GERD (gastroesophageal reflux disease) Status: Chronic (5) Hydrocephalus Status: Chronic (6) MRSA (methicillin resistant Staphylococcus aureus) Status: Resolved (7) Osteomyelitis Status: Resolved (8) Schizoaffective disorder, bipolar type Status: Chronic (9) Spina bifida Permanent Comment: Status: Chronic Current/Historical Medications Scheduled Benztropine Mesylate (Benztropine Mesylate), 1 MG PO BID Cetirizine (Zyrtec), 10 MG PO DAILY Cholecalciferol (Vitamin D), 2,000 INTER.UNIT PO BID Cyanocobalamin (Vitamin B-12), 500 MCG PO DAILY Docusate Sodium (Colace), 100 MG PO BID Doxycycline (Monohydrate) (Doxycycline), 100 MG PO BID Famotidine (Pepcid), 40 MG PO DAILY Ferrous Sulfate (Ferrous Sulfate), 325 MG PO BID Fluconazole (Diflucan), 100 MG PO DAILY Fluticasone Prop/Salmeterol (Advair Diskus 500/50 60 Dose), 1 PUFF INH BID Gabapentin (Gabapentin), 300 MG PO BID Hydroxyzine HCl (Hydroxyzine Pamoate), 50 MG PO HS Hydroxyzine HCl (Hydroxyzine HCl), 25 MG PO QAM Hyoscyamine Sulfate (Levsin), 0.125 MG PO TID Levothyroxine Sodium (Levothyroxine Sodium), 75 MCG PO QAM Linaclotide (Linzess), 290 MCG PO QAM [place] Carbonate ([place] Carbonate), 600 MG PO QPM [place] Carbonate Er (Lithobid Ext Rel), 450 MG PO QAM Montelukast Sod (Montelukast Sodium), 10 MG PO HS Multiple Vitamin (Multivitamin), 1 TAB PO DAILY Nystatin (Topical) (Nystop), 1 APPLN TOP UD Pantoprazole (Pantoprazole Sodium), 40 MG PO DAILY Potassium Chloride (Potassium Chloride ER), 40 MEQ PO AMPM Probiotic Product (Probiotic), 1 CAP PO TID Senna (Senokot), 8.6 MG PO BID Sucralfate (Carafate), 10 ML PO QID Topiramate (Qudexy Xr), 100 MG PO BID Trazodone Hcl (Trazodone), 150 MG PO HS Venlafaxine Hcl (Effexor Xr), 150 MG PO QAM Scheduled PRN Albuterol Sulfate (Proair Respiclick), 2 PUFFS INH TID PRN for SOB/Wheezing Levalbuterol (Levalbuterol HCl), 3 ML NEB Q4H PRN for Shortness of Breath Meclizine Hcl (Meclizine Hcl), 25 MG PO TID PRN for Dizziness or Vertigo Menthol-Zinc Oxide (Calmoseptine), 1 APPLN TOP DAILY PRN for Skin Irritation Ondasetron Odt (Zofran Odt), 4 MG SL Q8 PRN for Nausea Oxycodone HCl (Oxycodone HCl), 5-10 MG PO Q8 PRN for Pain Polyethylene Glycol 3350 (Miralax), 17 GM PO DAILY PRN for Constipation Allergies Coded Allergies: Adhesives (Verified Allergy, Intermediate, TAPE- HIVES, 09/16/17) Ceftriaxone (Verified Allergy, Intermediate, rash, 09/16/17) Has tolerated cefepime and Zerbaxa Chlorhexidine (Verified Allergy, Intermediate, RASH, 09/16/17) Ciprofloxacin (Verified Allergy, Intermediate, hives, 09/16/17) Imipenem (Verified Allergy, Intermediate, PT REPORTS ITCHING, 09/16/17) Latex (Verified Allergy, Intermediate, hives, 09/16/17) Levofloxacin (Verified Allergy, Intermediate, rash, 09/16/17) Linezolid (Verified Allergy, Intermediate, rash, 09/16/17) Piperacillin (Verified Allergy, Intermediate, SEVERE RASH, HIVES, 09/16/17) Tazobactam (Verified Allergy, Intermediate, SEVERE RASH, HIVES, 09/16/17) Vancomycin (Verified Allergy, Intermediate, rash, 09/16/17) Tobramycin (Verified Allergy, Mild, MILD RASH ON ARM, RED FACE, 09/16/17) IMPROVED AFTER BENADRYL, TAKING REST OF DOSE Amikacin (Verified Allergy, Unknown, PER DR ROBINS,RXN WAS TO ZOSYN NOT AMKrash;hives, 09/16/17) Sulfamethoxazole w/Trimethoprim (Verified Allergy, Unknown, Hives, 09/16/17 ) Can be pretreated with 10mg Zytrec 45 min prior to admin Buspirone (Verified Adverse Reaction, Severe, HALLUCINATIONS, 09/16/17) Vital Signs Date Time Temp Pulse Resp B/P (MAP) Pulse Ox O2 Delivery O2 Flow Rate FiO2 09/16/17 12:42 78 18 96 09/16/17 11:24 74 18 135/85 94 Room Air 09/16/17 10:07 79 18 106/71 93 Room Air 09/16/17 08:35 80 20 125/68 97 Room Air 09/16/17 07:18 36.7 87 22 100 Room Air Laboratory Results 09/16/17 07:55 Red Blood Count 4.20, Mean Corpuscular Volume 95.7, Mean Corpuscular Hemoglobin 30.0, Mean Corpuscular Hemoglobin Concent 31.3, Mean Platelet Volume 10.2, Neutrophils (%) (Auto) 61.9, Lymphocytes (%) (Auto) 22.5, Monocytes (%) (Auto) 8.9, Eosinophils (%) (Auto) 5.8, Basophils (%) (Auto) 0.6, Neutrophils # (Auto) 4.41, Lymphocytes # (Auto) 1.60, Monocytes # (Auto) 0.63, Eosinophils # (Auto) 0.41, Basophils # (Auto) 0.04 09/16/17 07:55 Test 09/16/17 07:55 09/16/17 08:45 White Blood Count 7.11 K/uL (4.8-10.8) Red Blood Count 4.20 M/uL (4.2-5.4) Hemoglobin 12.6 g/dL (12.0-16.0) Hematocrit 40.2 % (37-47) Mean Corpuscular Volume 95.7 fL (80-100) Mean Corpuscular Hemoglobin 30.0 pg (25-34) Mean Corpuscular Hemoglobin Concent 31.3 g/dl (32-36) Platelet Count 207 K/uL (130-400) Mean Platelet Volume 10.2 fL (7.4-10.4) Neutrophils (%) (Auto) 61.9 % Lymphocytes (%) (Auto) 22.5 % Monocytes (%) (Auto) 8.9 % Eosinophils (%) (Auto) 5.8 % Basophils (%) (Auto) 0.6 % Neutrophils # (Auto) 4.41 K/uL (1.4-6.5) Lymphocytes # (Auto) 1.60 K/uL (1.2-3.4) Monocytes # (Auto) 0.63 K/uL (0.11-0.59) Eosinophils # (Auto) 0.41 K/uL (0-0.5) Basophils # (Auto) 0.04 K/uL (0-0.2) RDW Standard Deviation 54.7 fL (36.4-46.3) RDW Coefficient of Variation 15.5 % (11.5-14.5) Immature Granulocyte % (Auto) 0.3 % Immature Granulocyte # (Auto) 0.02 K/uL (0.00-0.02) Anion Gap 5.0 mmol/L (3-11) Estimated GFR () 132.5 Estimated GFR (Non- 114.3 BUN/Creatinine Ratio 18.8 (10-20) Calcium Level 8.8 mg/dl (8.5-10.1) Total Bilirubin 0.4 mg/dl (0.2-1) Aspartate Amino Transf (AST/SGOT) 13 U/L (15-37) Alanine Aminotransferase (ALT/SGPT) 20 U/L (12-78) Alkaline Phosphatase 91 U/L (45-117) Total Protein 7.3 gm/dl (6.4-8.2) Albumin 3.1 gm/dl (3.4-5.0) Globulin 4.2 gm/dl (2.5-4.0) Albumin/Globulin Ratio 0.7 (0.9-2) Thyroid Stimulating Hormone (TSH) 7.160 uIu/ml (0.300-4.500) [place] Level 1.4 mMOL/L (0.6-1.2) Urine Color YELLOW Urine Appearance CLOUDY (CLEAR) Urine pH 6.5 (4.5-7.5) Urine Specific [place] 1.016 (1.000-1.030) Urine Protein NEG (NEG) Urine Glucose (UA) NEG (NEG) Urine Ketones NEG (NEG) Urine Occult Blood 1+ (NEG) Urine Nitrite POS (NEG) Urine Bilirubin NEG (NEG) Urine Urobilinogen NEG (NEG) Urine Leukocyte Esterase LARGE (NEG) Urine WBC (Auto) >30 /hpf (0-5) Urine RBC (Auto) 5-10 /hpf (0-4) Urine Hyaline Casts (Auto) 5-10 /lpf (0-5) Urine Epithelial Cells (Auto) >30 /lpf (0-5) Urine Bacteria (Auto) 2+ (NEG) Urine Test NEG (NEG) Medications Administered Medications (Trade) Dose Ordered Sig/Brenna Route Start Time Stop Time Status Last Admin Dose Admin Prochlorperazine Edisylate (Compazine Inj) 10 mg NOW STAT IV 09/16/17 07:34 09/16/17 07:43 DC 09/16/17 08:24 10 MG Sodium Chloride 1,000 ml @ 999 mls/hr Q1H1M STAT IV 09/16/17 07:34 09/16/17 08:34 DC 09/16/17 08:26 999 MLS/HR Morphine Sulfate (MoRPHine SULFATE INJ) 4 mg NOW STAT IV 09/16/17 07:34 09/16/17 07:43 DC 09/16/17 07:34 4 MG Diphenhydramine HCl (Benadryl Inj) 25 mg NOW STAT IV 09/16/17 07:34 09/16/17 07:43 DC 09/16/17 08:25 25 MG Dexamethasone Sodium Phosphate (Decadron Inj) 10 mg NOW STAT IV 09/16/17 07:34 09/16/17 07:44 DC 09/16/17 08:26 10 MG Ondansetron HCl (Zofran Inj) 4 mg NOW STAT IV 09/16/17 11:53 09/16/17 11:54 DC 09/16/17 12:12 4 MG Departure Information Impression Primary Impression: Elevated lithium level Additional Impression: Headache Dispostion Home / Self-Care Condition GOOD Referrals Gela Boone M.D. (PCP) Patient Instructions ED Headache Migraine, My [facility] Additional Instructions You have been evaluated and treated in the emergency department for your headache. La CT imaging study has ruled out any evidence of a BINDER AND BOX BUILDER shunt failure. On lab work today, your lithium level is mildly elevated and your TSH (thyroid level) was also elevated. Do not take your lithium today, and call your primary care provider for possible adjustment of medications. Rest today in a quiet, peaceful, dark environment and get a full 8-10 hrs of sleep tonight. Avoid loud noises, smoke/smoking, alcohol, bright lights, stress, or physical exertion today to minimize the chance the headache may return. Continue your current medications as prescribed. Return to the ER for passing out, worsening headache, vision problems, neck stiffness/pain, fevers, vomiting, worsening of your condition, or as needed. Follow up with your primary care provider in 2-3 days for a recheck of your current condition. You should also touch base with your neurosurgeon and headache specialist regarding your ongoing headache issues. Problem Qualifiers Additional Impression: Headache Headache type: unspecified Headache chronicity pattern: unspecified pattern Intractability: not intractable Qualified Codes: R51 - Headache
[2017-09-16 08:05] LABS: BASO % 0.6 %; BASO ABS # 0.04 K/uL (0-0.2); EOS % 5.8 %; EOS ABS # 0.41 K/uL (0-0.5); HEMATOCRIT 40.2 % (37-47); HEMOGLOBIN 12.6 g/dL (12.0-16.0); IG# 0.02 K/uL (0.00-0.02); LYMPH % 22.5 %; MEAN CELL VOLUME 95.7 fL (80-100); MEAN CORPUSCULAR HGB CONC 31.3 g/dl (32-36); MEAN PLATELET VOLUME 10.2 fL (7.4-10.4); MONO % 8.9 %; MONO ABS # 0.63 K/uL (0.11-0.59); NEUT % 61.9 %; NEUT ABS # 4.41 K/uL (1.4-6.5); PLATELET COUNT 207 K/uL (130-400); RED CELL DISTRIBUTION WIDTH CV 15.5 % (11.5-14.5); RED CELL DISTRIBUTION WIDTH SD 54.7 fL (36.4-46.3); WHITE BLOOD COUNT 7.11 K/uL (4.8-10.8)
[2017-09-16] MEDS ORDERED: MoRPHine SULFATE 4 MG/ML 1 ML CARP\\VIAL ONE (08:06)
[2017-09-16 08:29] LABS: ALBUMIN 3.1 gm/dl (3.4-5.0); ALT/SGPT 20 U/L (12-78); AST/SGOT 13 U/L (15-37); BLOOD UREA NITROGEN 13 mg/dl (7-18); CALCIUM 8.8 mg/dl (8.5-10.1); CARBON DIOXIDE 26 mmol/L (21-32); CREATININE 0.71 mg/dl (0.60-1.20); GLUCOSE 95 mg/dl (70-99); POTASSIUM 3.7 mmol/L (3.5-5.1); SODIUM 139 mmol/L (136-145)
[2017-09-16 08:40] LABS: ALKALINE PHOSPHATASE 91 U/L (45-117); TOTAL PROTEIN 7.3 gm/dl (6.4-8.2)
--- NOTE | 2017-09-16 08:57 | DIAGNOSTIC IMAGING REPORT ---
CT HEAD WITHOUT CONTRAST (CT) CLINICAL HISTORY: Severe headache, nausea, dizziness, double vision, possible shunt dysfunction COMPARISON STUDY: 08/27/2017 TECHNIQUE: Axial CT of the brain is performed from the vertex to the skull base. IV contrast was not administered for this examination. A dose lowering technique was utilized adhering to the principles of ALARA. CT DOSE: 537.48 mGy.cm FINDINGS: No intra or extra-axial mass lesions are visualized. There is no CT evidence of acute cortical infarction. There is no evidence of midline shift. There is no acute hemorrhage. No calvarial fractures are visualized. There is a right frontal shunt catheter present. There is no ventricular dilatation. The frontal horns remain slit like. There is an old right occipital dianne hole. Prominent interhemispheric occipital and posterior parietal sulci remain stable. There is fullness at the level of the foramen magnum. A Chiari malformation cannot be excluded. There is persistent mucosal fluid/thickening within the left maxillary sinus. There are opacified left ethmoid air cells. There is trace fluid within a hypoplastic left frontal sinus. There is stable calvarial thickening IMPRESSION: 1. Inflammatory changes in the left paranasal sinuses 2. No change in the position of the right frontal shunt catheter. No hydrocephalus. The frontal horns remain slitlike. 3. 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 Electronically signed by: Yair Morrison M.D. 09/16/2017 8:56 AM Dictated Date/Time: 09/16/2017 8:50 AM
[2017-09-16 11:24] VITALS: BP 135/85
[2017-09-16] MEDS ORDERED: ONDANSETRON INJ 2 MG/ML 2 ML VIAL IV STA (11:53)
[2017-09-16 12:42] VITALS: PULSE 78; O2SAT 96
--- NOTE | 2017-09-18 15:18 | Pharmacy Progress Note ---
ED Pharmacist Culture FollowUp Date of Service: Sep 18, 2017. Patient with complicated medical history and frequent UTI followed by ID. 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 Spoke w Dr. Sauceda - he is familiar with the patient case and is attempting to minimize exposure to antimicrobials for this patient as isolation of pathogens does not always warrant treatment and she has a significant complicated medical history. He recommended the following: * No antibiotics required at this time * Changing out Meade more frequently (minimum of once per week) * Return to ED with any questions/concerns I called the patient and spoke with her r/e the above plan. Of note, she stated they usually change her Meade every other week. She acknowledged understanding of the above 3 bullet points and expressed comfort with the plan.
== END 2017-09-16 12:43 | disposition home or self-care (01) ==
LOC: C.EDB 07:17
DX: R78.89 Finding of other specified substances, not normally found in blood (principal); R51 Headache; Q05.9 Spina bifida, unspecified; J45.909 Unspecified asthma, uncomplicated; F41.8 Other specified anxiety disorders; F25.0 Schizoaffective disorder, bipolar type; K31.84 Gastroparesis; K21.9 Gastro-esophageal reflux disease without esophagitis; Z98.2 Presence of cerebrospinal fluid drainage device; Z79.891 Long term (current) use of opiate analgesic; Z95.9 Presence of cardiac and vascular implant and graft, unspecified; Z79.899 Other long term (current) drug therapy; Z91.048 Other nonmedicinal substance allergy status; Z88.8 Allergy status to other drugs, medicaments and biological substances; Z88.1 Allergy status to other antibiotic agents; Z88.2 Allergy status to sulfonamides

== ENCOUNTER → 2017-09-19 | Outpatient (CLI) | payer BC, OTHER ==
[~2017-09-19] MED LIST changes: +LEVO88TA3 PO; +RISP2TAB22 PO
--- NOTE | 2017-09-19 15:23 | DIAGNOSTIC IMAGING REPORT ---
CHEST 2 VIEWS ROUTINE HISTORY: 32 years-old Female R05 Cough acute cough COMPARISON: Chest radiograph 08/27/2017 TECHNIQUE: AP and lateral views of the chest FINDINGS: Study is limited secondary to hypoinflation and patient body habitus. Cardiac silhouette appears mildly enlarged. Bronchovascular crowding with subsegmental bibasilar opacities. No pneumothorax, large pleural effusion or overt pulmonary edema. Right subclavian [id number]-[id number]-Vndc catheter is unchanged. Right-sided PICC is noted with distal tip terminating in the expected region of the mid SVC. Ventriculoperitoneal shunt catheter also noted. Bones of the chest appear grossly intact. IMPRESSION: Hypoinflation with bronchovascular crowding and subsegmental bibasilar opacities suggesting atelectasis. Superimposed pneumonia would be difficult to exclude however is felt to be less likely. The above report was generated using voice recognition software. It may contain grammatical, syntax or spelling errors. Electronically signed by: Bob Martino M.D. 09/19/2017 3:21 PM Dictated Date/Time: 09/19/2017 3:16 PM
== END | disposition home or self-care (01) ==
LOC: C.RAD 14:41
PROVIDERS: ATTEND Physician Assistant Medical
DX: R05 Cough (principal)

== ENCOUNTER 2017-09-21 20:46 | Emergency (ER) | payer BC, OTHER ==
[~2017-09-21 20:46] MED LIST changes: -LEVO88TA3 PO; -RISP2TAB22 PO
[2017-09-21 20:52] VITALS: TEMP 36.6
[2017-09-21] MEDS ORDERED: PROCHLORPERAZINE 5 MG/ML 2 ML VIAL IV STA (21:53)
[2017-09-21] MEDS ORDERED: DiphenhydrAMINE HCL 50 MG/ML VIAL IV STA (21:53)
[2017-09-21] MEDS ORDERED: SODIUM CHLORIDE 0.9% 1000ML 1,000 ML IV ONE (22:00)
[2017-09-21] MEDS ORDERED: DEXAMETHASONE **PF** INJ 10 MG/ML VIAL IV ONE (22:00)
[2017-09-21] MEDS ORDERED: ACETAMINOPHEN IV 1,000 MG in EMPTY BAG 0 ML IV ONE (22:00)
[2017-09-21] MEDS ORDERED: ACETAMINOPHEN 1000 MG/100 ML IV IV ONE (22:15)
--- NOTE | 2017-09-21 22:54 | DIAGNOSTIC IMAGING REPORT ---
HEAD WITHOUT CONTRAST (CT) CLINICAL HISTORY: 32 years-old Female with Headache. Has CUT IN WORKER shunt.. Acute headache with ventriculoperitoneal shunt catheter TECHNIQUE: Multiple axial CT images of the head were obtained without contrast. A dose lowering technique was utilized adhering to the principles of ALARA. CT DOSE: 614.27 mGy.cm COMPARISON: CT head 09/16/2017. FINDINGS: Right frontal ventriculoperitoneal shunt catheter appears unchanged in positioning. The frontal horns of the lateral ventricles, third and fourth ventricle again remain decompressed. Mild asymmetric prominence of the atria and posterior horn right lateral ventricle is unchanged. There is no evidence of hydrocephalus, acute intracranial hemorrhage, midline shift, abnormal extra-axial collections, or territorial ischemia. A normal-appearing corpus callosum is not identified and there is noted be prominence of the anterior hemispheric sulci compatible with congenital anomaly. Cerebellar tonsillar ectopia redemonstrated. Remote dianne hole of the right occipital bone. Near complete opacification of the left maxillary sinus with severe ethmoid and mild to moderate right maxillary and moderate sphenoid sinus disease. Hypoplasia of the frontal sinuses. Mastoid air cells are clear. 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 IMPRESSION: 1. No acute intracranial abnormality identified. 2. Unchanged positioning of the right frontal ventriculoperitoneal shunt catheter with continued decompression of the ventricles. No evidence of hydrocephalus. 3. Chronic changes as above. The above report was generated using voice recognition software. It may contain grammatical, syntax or spelling errors. Electronically signed by: Bob Martino M.D. 09/21/2017 10:53 PM Dictated Date/Time: 09/21/2017 10:45 PM
[2017-09-21] MEDS ORDERED: DOXY-300 PO (23:06)
[2017-09-21] MEDS ORDERED: LEVO88TA3 PO (23:09)
[2017-09-21] MEDS ORDERED: RISP2TAB22 PO (23:18)
[2017-09-22 01:04] VITALS: BP 125/72; PULSE 84; O2SAT 94
--- NOTE | 2017-09-22 04:18 | EMERGENCY ROOM VISIT NOTE ---
History First contact with patient: 21:36 Chief Complaint: OTHER COMPLAINT Stated Complaint: SHUNT FAILURE POSSIBLY History of Present Illness The patient is a 32 year old female who presents to the Emergency Room with complaints of headache that has been ongoing for the past 3 or 4 weeks. The patient states the pain is worse today despite taking oxycodone at home. The patient has a history of hydrocephalus and UX RESEARCHER shunt placement. The patient is concerned that her shunt is failing, as this has occurred in the past, and feels similar. The patient has not had fever or chills. No altered mental status according to the mother who is the primary caregiver. The patient has been eating, drinking, and using the bathroom is normal for her. The patient is not photophobic. She has been nauseated without vomiting. She rates her current discomfort a 7/10. They do follow with [facility], Dr Hoskins , and evidently have an appointment in 4 days with them. The patient does not identify aggravating or alleviating factors. Review of Systems More than 10 systems were reviewed and otherwise negative with the exception of history of present illness. 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 (16) Osteomyelitis (17) Pulmonary embolism (18) Schizoaffective disorder, bipolar type (19) Shunt placement with revision x8 (20) Spina bifida (21) UTI (urinary tract infection) Surgical Problems: (1) S/P BKA (below knee amputation) bilateral Family History Cancer Diabetes mellitus Lung disease Social History Smoking Status: Never Smoker Alcohol Use: none Drug Use: none Marital Status: single Housing Status: lives with family Occupation Status: disabled Current/Historical Medications Scheduled Benztropine Mesylate (Benztropine Mesylate), 1 MG PO BID Cetirizine (Zyrtec), 10 MG PO DAILY Cholecalciferol (Vitamin D), 2,000 INTER.UNIT PO BID Cyanocobalamin (Vitamin B-12), 500 MCG PO DAILY Docusate Sodium (Colace), 100 MG PO BID Doxycycline (Monohydrate) (Doxycycline), 100 MG PO BID Famotidine (Pepcid), 40 MG PO DAILY Ferrous Sulfate (Ferrous Sulfate), 325 MG PO BID Fluconazole (Diflucan), 100 MG PO DAILY Fluticasone Prop/Salmeterol (Advair Diskus 500/50 60 Dose), 1 PUFF INH BID Gabapentin (Gabapentin), 300 MG PO BID Hydroxyzine HCl (Hydroxyzine Pamoate), 50 MG PO HS Hydroxyzine HCl (Hydroxyzine HCl), 25 MG PO QAM Hyoscyamine Sulfate (Levsin), 0.125 MG PO TID Levothyroxine Sodium (Levothyroxine Sodium), 88 MCG PO DAILY Linaclotide (Linzess), 290 MCG PO QAM [place] Carbonate ([place] Carbonate), 600 MG PO QPM [place] Carbonate Er (Lithobid Ext Rel), 450 MG PO QAM Montelukast Sod (Montelukast Sodium), 10 MG PO HS Multiple Vitamin (Multivitamin), 1 TAB PO DAILY Nystatin (Topical) (Nystop), 1 APPLN TOP UD Pantoprazole (Pantoprazole Sodium), 40 MG PO DAILY Potassium Chloride (Potassium Chloride ER), 40 MEQ PO AMPM Probiotic Product (Probiotic), 1 CAP PO TID Risperidone (Risperdal), 2 MG PO DIRECTED Senna (Senokot), 8.6 MG PO BID Sucralfate (Carafate), 10 ML PO QID Topiramate (Qudexy Xr), 100 MG PO BID Trazodone Hcl (Trazodone), 150 MG PO HS Venlafaxine Hcl (Effexor Xr), 150 MG PO QAM Scheduled PRN Albuterol Sulfate (Proair Respiclick), 2 PUFFS INH TID PRN for SOB/Wheezing Levalbuterol (Levalbuterol HCl), 3 ML NEB Q4H PRN for Shortness of Breath Meclizine Hcl (Meclizine Hcl), 25 MG PO TID PRN for Dizziness or Vertigo Menthol-Zinc Oxide (Calmoseptine), 1 APPLN TOP DAILY PRN for Skin Irritation Ondasetron Odt (Zofran Odt), 4 MG SL Q8 PRN for Nausea Oxycodone HCl (Oxycodone HCl), 5-10 MG PO Q8 PRN for Pain Polyethylene Glycol 3350 (Miralax), 17 GM PO DAILY PRN for Constipation Physical Exam Vital Signs Date Time Temp Pulse Resp B/P (MAP) Pulse Ox O2 Delivery O2 Flow Rate FiO2 09/22/17 01:04 84 22 125/72 94 Room Air 09/21/17 23:24 82 20 107/74 93 Room Air 09/21/17 21:30 90 20 118/77 96 Room Air 09/21/17 20:52 36.6 108 20 118/72 95 Room Air Physical Exam VITALS: Vitals are noted on the nurse's note and reviewed by myself. Vital signs stable. GENERAL: Obese female who is at her baseline health. She is cooperative with the examination. NECK: Supple without nuchal rigidity. No lymphadenopathy. No thyromegaly. Cervical spine is nontender. No meningismus. HEART: Regular rate and rhythm without murmurs gallops or rubs. LUNGS: Clear to auscultation bilaterally without wheezes, rales or rhonchi. No retractions or accessory muscle use. MUSCULOSKELETAL: No muscle atrophy, erythema, or edema noted. NEURO: Patient was alert and oriented to person place and time. CN II through XII grossly intact. No focal neurological deficits. Deep tendon reflexes 2+ throughout. SKIN: The skin was without rashes, erythema, edema, or bruising. Medical Decision & Procedures ER Provider Diagnostic Interpretation: HEAD WITHOUT CONTRAST (CT) CLINICAL HISTORY: 32 years-old Female with Headache. Has UX RESEARCHER shunt.. Acute headache with ventriculoperitoneal shunt catheter TECHNIQUE: Multiple axial CT images of the head were obtained without contrast. A dose lowering technique was utilized adhering to the principles of ALARA. CT DOSE: 614.27 mGy.cm COMPARISON: CT head 09/16/2017. FINDINGS: Right frontal ventriculoperitoneal shunt catheter appears unchanged in positioning. The frontal horns of the lateral ventricles, third and fourth ventricle again remain decompressed. Mild asymmetric prominence of the atria and posterior horn right lateral ventricle is unchanged. There is no evidence of hydrocephalus, acute intracranial hemorrhage, midline shift, abnormal extra-axial collections, or territorial ischemia. A normal-appearing corpus callosum is not identified and there is noted be prominence of the anterior hemispheric sulci compatible with congenital anomaly. Cerebellar tonsillar ectopia redemonstrated. Remote dianne hole of the right occipital bone. Near complete opacification of the left maxillary sinus with severe ethmoid and mild to moderate right maxillary and moderate sphenoid sinus disease. Hypoplasia of the frontal sinuses. Mastoid air cells are clear. 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 IMPRESSION: 1. No acute intracranial abnormality identified. 2. Unchanged positioning of the right frontal ventriculoperitoneal shunt catheter with continued decompression of the ventricles. No evidence of hydrocephalus. 3. Chronic changes as above. Laboratory Results Test 09/21/17 22:10 09/21/17 22:11 [place] Level < 0.2 mMOL/L (0.6-1.2) Urine Color YELLOW Urine Appearance CLOUDY (CLEAR) Urine pH 6.0 (4.5-7.5) Urine Specific [place] 1.017 (1.000-1.030) Urine Protein NEG (NEG) Urine Glucose (UA) NEG (NEG) Urine Ketones NEG (NEG) Urine Occult Blood NEG (NEG) Urine Nitrite POS (NEG) Urine Bilirubin NEG (NEG) Urine Urobilinogen NEG (NEG) Urine Leukocyte Esterase MODERATE (NEG) Urine WBC (Auto) 10-30 /hpf (0-5) Urine RBC (Auto) 0-4 /hpf (0-4) Urine Hyaline Casts (Auto) 1-5 /lpf (0-5) Urine Epithelial Cells (Auto) >30 /lpf (0-5) Urine Bacteria (Auto) NEG (NEG) Urine Opiates Screen POS (NEG) Urine Methadone, Qualitative NEG (NEG) Urine Barbiturates NEG (NEG) Urine Phencyclidine (PCP) Level NEG (NEG) Ur Amphetamine/Methamphetamine NEG (NEG) MDMA (Ecstasy) Screen NEG (NEG) Urine Benzodiazepines Screen NEG (NEG) Urine Cocaine Metabolite NEG (NEG) Urine Marijuana (THC) NEG (NEG) Medications Administered Medications (Trade) Dose Ordered Sig/Brenna Route Start Time Stop Time Status Last Admin Dose Admin Diphenhydramine HCl (Benadryl Inj) 50 mg NOW STAT IV 09/21/17 21:53 09/21/17 21:57 DC 09/21/17 22:20 50 MG Prochlorperazine Edisylate (Compazine Inj) 10 mg NOW STAT IV 09/21/17 21:53 09/21/17 21:57 DC 09/21/17 22:20 10 MG Dexamethasone Sodium Phosphate (Dexamethasone Inj Pf) 10 mg NOW ONCE IV 09/21/17 22:00 09/21/17 22:01 DC 09/21/17 22:20 10 MG Sodium Chloride 1,000 ml @ 999 mls/hr Q1H1M ONCE IV 09/21/17 22:00 09/21/17 23:00 DC 09/21/17 22:21 999 MLS/HR Acetaminophen (Ofirmev Iv) 1,000 mg STK-MED ONCE IV 09/21/17 22:15 09/21/17 22:16 DC 09/21/17 22:20 1,000 MG Heparin Sodium (Porcine) (Heparin 10 Unit/ ml 5 ml Flush) 5 ml STK-MED ONCE .ROUTE 09/22/17 00:48 09/22/17 00:49 DC 09/22/17 01:04 5 ML ED Course Physical exam and history were performed. Nursing notes, EMR, and Medication List were personally reviewed. Patient appears to have headache symptoms not relieved with oxycodone at home. The patient does have a shunt, and is concerned that it may be malfunctioning. The patient has been seen several times over the past few weeks with similar complaints. We did access her port and she was hydrated and medicated as above. CT scan of the head was performed as well as a UX RESEARCHER shunt series of plain films. Urine was collected. The patient's CT scan is as above and does not show hydrocephalus or disruption of her shunt. The x-ray series was extensively reviewed by myself and my attending physician, Dr. Martinez, and appears similar to previous series. Of note the official radiology read is pending at the time of this dictation. The patient's urine is without obvious infection. On reevaluation the patient was sleeping quite comfortably in her ER bed. The patient's mother is concerned due to the frequency of these headaches, and inability at home to keep the patient comfortable. Because of the frequency of visits and complicated nature of the patient's past, I did contact neurosurgery at [facility], and did speak directly with Dr Hoskins, the patient's specialist. Dr. Gato stated that he will have the office contact the patient directly in about 7 hours when the office opens, and have her seen later today. She does not need emergent transfer at this time, but should have close follow-up. The family and patient were very pleased with this plan, and are comfortable with discharge home as the patient feels much better. The family was thoroughly invited back to the ER with any new, worsening, or concerning symptoms. The chart was completed utilizing [employer] Speech Voice Recognition Software. Grammatical errors, random word insertions, pronoun errors, and incomplete sentences are an occasional consequence of this system due to software limitations, ambient noise, and hardware issues. Any formal questions or concerns about the content, text, or information contained within the body of this dictation should be directly addressed to the provider for clarification. . Medical Decision The differential diagnosis includes, but is not limited to: shunt malfunction, acute intracranial bleed, meningitis, encephalitis, mass or mass effect, sinusitis, infection, tumor, headache, temporal arteritis and carbon monoxide exposure, and migraine. Impression Primary Impression: Headache Additional Impression: UX RESEARCHER (ventriculoperitoneal) shunt status Departure Information Dispostion Home / Self-Care Condition GOOD Forms HOME CARE DOCUMENTATION FORM, IMPORTANT VISIT INFORMATION Patient Instructions My [facility] Additional Instructions You were seen and evaluated today on an emergency basis only. This is not a substitute for, or an effort to provide, complete comprehensive medical care. It is not possible to recognize and treat all injuries or illnesses in a single emergency department visit. For this reason it is recommended that you followup with your neurosurgeon later today for recheck. They are aware of your visit to the ER today and should be contacting you first thing in the morning to arrange your appointment. Continue your at-home medications. You are welcome to return to the emergency department anytime with new, worsening, or concerning symptoms. Problem Qualifiers
--- NOTE | 2017-09-22 07:18 | DIAGNOSTIC IMAGING REPORT ---
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 TECHNIQUE: Crosstable lateral and frontal views of the cervical spine were obtained. COMPARISON: 08/27/2017. FINDINGS: Markedly degraded examination due to patient body habitus. The inferior half of the cervical spine is not visualized. Grossly normal cervical spine. A ventriculoperitoneal shunt descends along the right posterior aspect of the neck and is intact along the visualized course. Multiple additional catheters are partially visualized in the right upper chest and right hemithorax. IMPRESSION: 1. Allowing for degraded image quality, grossly intact ventriculoperitoneal shunt along the visualized course. 2. Multiple additional catheters in the right upper chest/right hemithorax. Electronically signed by: Chris Blanco M.D. 09/22/2017 7:16 AM Dictated Date/Time: 09/22/2017 7:15 AM
--- NOTE | 2017-09-22 07:21 | DIAGNOSTIC IMAGING REPORT ---
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 TECHNIQUE: Supine and crosstable lateral views of the abdomen were obtained. COMPARISON: 08/27/2017 FINDINGS: Markedly degraded examination secondary to patient body habitus. This limits diagnostic sensitivity the exam. A catheter is noted descending along the right anterior abdomen, with the radiopaque portion terminating in the subcutaneous tissue of the right anterior abdominal wall. The catheter is intact along the visualized course. An additional catheter descends along the right lateral chest wall and projects over the right upper quadrant, somewhat tightly looped. No evidence of breakage though a kink is difficult to exclude. Marked stool burden throughout the colon. No gross pneumoperitoneum allowing for supine technique and degraded image quality. Cholecystectomy clips noted. Limited evaluation of the osseous structures due to patient body habitus. IMPRESSION: 1. Degraded examination secondary to patient body habitus. This limits diagnostic sensitivity. 2. Allowing for this, tightly looped catheter projecting over the right upper quadrant. A kink in the coiled portion is difficult to exclude. Cross-sectional imaging could be obtained if clinically indicated. 3. Marked stool burden consistent with constipation. Electronically signed by: Chris Blanco M.D. 09/22/2017 7:20 AM Dictated Date/Time: 09/22/2017 7:16 AM
--- NOTE | 2017-09-22 07:27 | DIAGNOSTIC IMAGING REPORT ---
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 TECHNIQUE: AP and crosstable lateral views of the chest were obtained. COMPARISON: 09/19/2017. FINDINGS: Ventricular shunt catheter descends along the right neck and right lateral chest wall, projecting over the right upper quadrant and right posterior costophrenic angle. The catheter is somewhat tightly looped. A kink in this region is difficult to exclude. An additional right upper extremity PICC terminates at the superior cavoatrial junction. A right internal jugular Mediport terminates in the right atrium. Another catheter projects over the right hemithorax. This does not appear to connect to anything along the superior portion similar to the lack of a radiopaque connection more distally seen on abdominal radiographs. This may represent an abandoned shunt. Mildly low lung volumes. Resulting prominence of the cardiac mediastinal silhouette. No focal opacity. No large effusion or pneumothorax. Osseous structures normal. Cholecystectomy clips noted. Marked stool burden. IMPRESSION: 1. Ventricular shunt catheter is tightly looped and may terminate in the right posterior costophrenic sulcus (ventriculopleural catheter). A kink within the looped portion is difficult to exclude. 2. Mildly low lung volumes without convincing evidence of acute cardiopulmonary disease. 3. Marked stool burden consistent with constipation. Electronically signed by: Chris Blanco M.D. 09/22/2017 7:26 AM Dictated Date/Time: 09/22/2017 7:20 AM
== END 2017-09-22 01:01 | disposition home or self-care (01) ==
LOC: C.EDB 20:48
DX: R51 Headache (principal); Z98.2 Presence of cerebrospinal fluid drainage device; G91.9 Hydrocephalus, unspecified; F41.9 Anxiety disorder, unspecified; J45.909 Unspecified asthma, uncomplicated; K21.9 Gastro-esophageal reflux disease without esophagitis; E03.9 Hypothyroidism, unspecified; Z86.711 Personal history of pulmonary embolism; Z79.899 Other long term (current) drug therapy

== ENCOUNTER → 2017-10-02 | Outpatient (CLI) | payer BC, OTHER ==
[~2017-10-02] MED LIST changes: -LEVO75TA5 PO; +LEVO88TA3 PO; +PRENTAB26 PO; +RISP2TAB22 PO
[2017-10-02 13:51] LABS: BASO % 0.4 %; BASO ABS # 0.03 K/uL (0-0.2); EOS % 3.1 %; EOS ABS # 0.22 K/uL (0-0.5); HEMATOCRIT 37.8 % (37-47); HEMOGLOBIN 11.8 g/dL (12.0-16.0); IG# 0.01 K/uL (0.00-0.02); LYMPH % 25.7 %; LYMPH ABS # 1.84 K/uL (1.2-3.4); MEAN CELL VOLUME 94.3 fL (80-100); MEAN CORPUSCULAR HEMOGLOBIN 29.4 pg (25-34); MEAN CORPUSCULAR HGB CONC 31.2 g/dl (32-36); MEAN PLATELET VOLUME 10.4 fL (7.4-10.4); MONO % 8.8 %; MONO ABS # 0.63 K/uL (0.11-0.59); NEUT % 61.9 %; NEUT ABS # 4.42 K/uL (1.4-6.5); PLATELET COUNT 202 K/uL (130-400); RED CELL DISTRIBUTION WIDTH CV 15.3 % (11.5-14.5); RED CELL DISTRIBUTION WIDTH SD 53.3 fL (36.4-46.3); WHITE BLOOD COUNT 7.15 K/uL (4.8-10.8)
[2017-10-02 15:53] LABS: ALBUMIN 2.9 gm/dl (3.4-5.0); ALT/SGPT 23 U/L (12-78); AST/SGOT 13 U/L (15-37); BLOOD UREA NITROGEN 16 mg/dl (7-18); CALCIUM 8.6 mg/dl (8.5-10.1); CARBON DIOXIDE 26 mmol/L (21-32); CREATININE 0.53 mg/dl (0.60-1.20); GLUCOSE 92 mg/dl (70-99); POTASSIUM 3.9 mmol/L (3.5-5.1); SODIUM 140 mmol/L (136-145)
[2017-10-02 15:56] LABS: ALKALINE PHOSPHATASE 92 U/L (45-117)
--- NOTE | 2017-10-18 06:21 | CODING QUERY NO DIAGNOSIS ---
Valid Physician Order Needed A valid physician order must be submitted in order to properly bill for the service(s) provided, including date of service(s), valid diagnosis, and physician signature. If these tests are done on a recurring basis the original physician order must be submitted in order to code and bill for the service(s) provided. Please fax us the original, signed physician order so that we may expedite billing to [phone] DOS 10/02/17 * CBC W/AUTO DIFF * SED RATE AUTOMATED * CMP Thank you Ram[facility] Information Management
== END | disposition home or self-care (01) ==
LOC: C.LABSPEC 13:11
PROVIDERS: ATTEND Internal Medicine Infectious Disease
DX: N39.0 Urinary tract infection, site not specified (principal); Z88.0 Allergy status to penicillin; Z88.1 Allergy status to other antibiotic agents; Z91.040 Latex allergy status; Z91.09 Other allergy status, other than to drugs and biological substances

== ENCOUNTER → 2017-10-04 | Outpatient (CLI) | payer BC, OTHER ==
[~2017-10-04] MED LIST changes: -PRENTAB26 PO
--- NOTE | 2017-10-04 13:51 | DIAGNOSTIC IMAGING REPORT ---
RENAL ULTRASOUND CLINICAL HISTORY: NEUROGENIC BLADDER COMPARISON STUDY: Renal ultrasound July 07, 2017. FINDINGS: This exam is significantly compromised due to suboptimal penetration related to body habitus. The left kidney was not visualized due to suboptimal penetration. There is no right hydronephrosis. There is mild right renal cortical thinning. The bladder is decompressed. IMPRESSION: 1. No right hydronephrosis. 2. Exam significantly compromised by suboptimal penetration related to body habitus. Nonvisualization of the left kidney. Electronically signed by: Ryan Boone M.D. 10/04/2017 1:50 PM Dictated Date/Time: 10/04/2017 1:46 PM
== END | disposition home or self-care (01) ==
LOC: C.ULTR 12:58
PROVIDERS: ATTEND Nurse Practitioner
DX: N31.9 Neuromuscular dysfunction of bladder, unspecified (principal)

== ENCOUNTER 2017-10-12 12:47 | Emergency (ER) | payer BC, OTHER ==
[2017-10-12 13:06] VITALS: TEMP 36.3; Ht 119.4 cm
[2017-10-12] MEDS ORDERED: KETOROLAC TROMETHAMINE 30 MG/ML VIAL IV STA (13:33)
[2017-10-12] MEDS ORDERED: DiphenhydrAMINE HCL 50 MG/ML VIAL IV STA (13:33)
[2017-10-12] MEDS ORDERED: SODIUM CHLORIDE 0.9% 500ML 500 ML IV STA (13:33)
[2017-10-12] MEDS ORDERED: RISP2TAB22 PO ×2 (13:49)
[2017-10-12] MEDS ORDERED: PRENTAB26 PO (13:49)
[2017-10-12 14:11] LABS: BASO % 0.5 %; BASO ABS # 0.04 K/uL (0-0.2); EOS % 2.5 %; EOS ABS # 0.22 K/uL (0-0.5); HEMATOCRIT 40.9 % (37-47); HEMOGLOBIN 13.2 g/dL (12.0-16.0); IG# 0.02 K/uL (0.00-0.02); LYMPH % 25.6 %; LYMPH ABS # 2.26 K/uL (1.2-3.4); MEAN CORPUSCULAR HEMOGLOBIN 30.3 pg (25-34); MEAN CORPUSCULAR HGB CONC 32.3 g/dl (32-36); MEAN PLATELET VOLUME 10.7 fL (7.4-10.4); MONO % 7.4 %; MONO ABS # 0.65 K/uL (0.11-0.59); NEUT % 63.8 %; NEUT ABS # 5.64 K/uL (1.4-6.5); PLATELET COUNT 200 K/uL (130-400); RED CELL DISTRIBUTION WIDTH CV 14.7 % (11.5-14.5); RED CELL DISTRIBUTION WIDTH SD 50.3 fL (36.4-46.3); WHITE BLOOD COUNT 8.83 K/uL (4.8-10.8)
--- NOTE | 2017-10-12 14:40 | DIAGNOSTIC IMAGING REPORT ---
HEAD CT NONCONTRAST CT DOSE: 638.56 mGycm HISTORY: Headache. TECHNIQUE: Multiaxial CT images of the head were performed without the use of intravenous contrast. Automated exposure control was utilized for this study. A dose lowering technique was utilized adhering to the principles of ALARA. Comparison: Head CT 09/21/2017. Findings: Mild mucosal thickening within the left maxillary sinus. The mastoid air cells are clear. No fractures within the calvarium. The right frontal approach ventriculostomy catheter the tip terminating near the midline of the lateral ventricles. This remains unchanged. There is an old dianne hole within the left frontal bone and right occipital bone. There is no hematoma, midline shift, mass, acute infarct. The lateral and third ventricles remain unchanged and are almost completely decompressed. The fourth ventricle is stable in size. 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 There appears to be fenestration of the posterior falx with interdigitating of the gyri. 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 Impression: 1. No significant change compared to the prior study. No acute intracranial abnormality. 2. Right frontal ventriculostomy catheter remains unchanged position. There is near complete decompression of the lateral and third ventricles which is also stable. 3. Congenital abnormalities as described above. Electronically signed by: Edward Dixon M.D. 10/12/2017 2:39 PM Dictated Date/Time: 10/12/2017 2:27 PM
--- NOTE | 2017-10-12 14:51 | DIAGNOSTIC IMAGING REPORT ---
CHEST 1 VW FRONT-NOT PORTABLE CLINICAL HISTORY: SEVER PAIN ALL OVER COMPARISON STUDY: 09/21/2017 FINDINGS: There is a right-sided A-Port catheter present. A right-sided ventriculopleural shunt is visualized. The heart is mildly enlarged. There is no failure. There is no focal pulmonary consolidation. There are no pleural effusions.[ IMPRESSION: No active disease in the chest. Electronically signed by: Yair Morrison M.D. 10/12/2017 2:50 PM Dictated Date/Time: 10/12/2017 2:48 PM
--- NOTE | 2017-10-12 14:52 | DIAGNOSTIC IMAGING REPORT ---
SOFT TISSUE NECK TECHNIQUE: AP and lateral soft tissue neck FINDINGS: Normal prevertebral soft tissues. No distention of the hypopharynx. The epiglottis is normal. IMPRESSION: Normal study. The above report was generated using voice recognition software. It may contain grammatical, syntax or spelling errors. Electronically signed by: Werner Mcmahon M.D. 10/12/2017 2:51 PM Dictated Date/Time: 10/12/2017 2:50 PM
--- NOTE | 2017-10-12 14:54 | DIAGNOSTIC IMAGING REPORT ---
R TIBIA/FIBULA 2 VIEWS ROUTINE CLINICAL HISTORY: RLE WOUND ?OSTEO infection COMPARISON: None. DISCUSSION: Evidence for below knee amputation. There is fusion of the distal aspects of the residual tibia and fibula. The mid fibular shaft shows a somewhat coarsened/irregular trabecular pattern with potential abnormal depressed reaction at its margin. Possibility of osteomyelitis is considered. Mild soft tissue edema is present. There is no evidence for soft tissue swelling. IMPRESSION: 1. Cortical irregularity mid fibular shaft medially superior to the amputation site. 2. Associated soft tissue edema. 3. Possibility of developing osteomyelitis is considered. The above report was generated using voice recognition software. It may contain grammatical, syntax or spelling errors. Electronically signed by: Werner Mcmahon M.D. 10/12/2017 2:53 PM Dictated Date/Time: 10/12/2017 2:51 PM
[2017-10-12 15:01] LABS: ALBUMIN 2.9 gm/dl (3.4-5.0); ALT/SGPT 23 U/L (12-78); AST/SGOT 11 U/L (15-37); BLOOD UREA NITROGEN 18 mg/dl (7-18); CALCIUM 8.3 mg/dl (8.5-10.1); CARBON DIOXIDE 22 mmol/L (21-32); CREATININE 0.86 mg/dl (0.60-1.20); GLUCOSE 158 mg/dl (70-99); LIPASE 119 U/L (73-393); POTASSIUM 3.2 mmol/L (3.5-5.1); SODIUM 142 mmol/L (136-145)
[2017-10-12 15:04] LABS: ALKALINE PHOSPHATASE 110 U/L (45-117); TOTAL PROTEIN 7.5 gm/dl (6.4-8.2)
[2017-10-12 17:08] VITALS: BP 122/74; PULSE 94; O2SAT 98
--- NOTE | 2017-10-12 17:37 | EMERGENCY ROOM VISIT NOTE ---
History Report prepared by Sherylibveronica: Edu Villarreal Under the Supervision of: Dr. Paul Suárez D.O. First contact with patient: 13:11 Chief Complaint: PAIN (GENERALIZED) Stated Complaint: SEVERE PAIN ALL OVER BODY History of Present Illness The patient is a 32 year old female who presents to the Emergency Room with complaints of constant generalized body pain beginning today. She states "everything hurts, my entire body". The patient states that her head hurts the worst. She notes that she has a history of migraines, but states that her current headache feels worse (but in the same location - generalized), though not the worst she has had in her life. She states "I feel like I have an infection somewhere that I can't find". The patient was placed on Macrobid prophylactically last week, and developed a rash following this. She took two days of the Macrobid, and her rash has improved since stopping. She is currently on Doxycycline by wound care. The patient has a suprapubic catheter in place. She states that her aid noticed some pus around the entry site of the catheter today which was new. She has known open wounds on her right thigh (x1 month, appears same as normal) which are followed up wound-care. Pt denies change in vision, fevers, shortness of breath, new nausea, vomiting, diarrhea, and melena. She notes that she is constipated. Her last normal bowel movement was a few days ago. Source of History: patient Onset: Today Position: other (generalized) Timing: constant Associated Symptoms: + headache, No nausea, No vomiting, No melena, No diarrhea Note: Positive: constipation. Review of Systems See HPI for pertinent positives & negatives. A total of 10 systems reviewed and were otherwise negative. 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 (16) Osteomyelitis (17) Pulmonary embolism (18) Schizoaffective disorder, bipolar type (19) Shunt placement with revision x8 (20) Spina bifida (21) UTI (urinary tract infection) Surgical Problems: (1) S/P BKA (below knee amputation) bilateral Family History Cancer Diabetes mellitus Lung disease Social History Smoking Status: Never Smoker Alcohol Use: none Drug Use: none Marital Status: single Housing Status: lives with family Occupation Status: disabled Current/Historical Medications Scheduled Benztropine Mesylate (Benztropine Mesylate), 1 MG PO BID Cetirizine (Zyrtec), 10 MG PO DAILY Cholecalciferol (Vitamin D), 2,000 INTER.UNIT PO BID Cyanocobalamin (Vitamin B-12), 500 MCG PO DAILY Docusate Sodium (Colace), 100 MG PO BID Doxycycline (Monohydrate) (Doxycycline), 100 MG PO BID Famotidine (Pepcid), 40 MG PO DAILY Ferrous Sulfate (Ferrous Sulfate), 325 MG PO BID Fluticasone Prop/Salmeterol (Advair Diskus 500/50 60 Dose), 1 PUFF INH BID Gabapentin (Gabapentin), 300 MG PO BID Hydroxyzine HCl (Hydroxyzine Pamoate), 50 MG PO HS Hydroxyzine HCl (Hydroxyzine HCl), 25 MG PO QAM Hyoscyamine Sulfate (Levsin), 0.125 MG PO TID Levothyroxine Sodium (Levothyroxine Sodium), 88 MCG PO DAILY Montelukast Sod (Montelukast Sodium), 10 MG PO HS Multivit/Min/Iron/Fol Ac/Pren ( Vitamin), 1 TAB PO DAILY Nystatin (Topical) (Nystop), 1 APPLN TOP UD Pantoprazole (Pantoprazole Sodium), 40 MG PO DAILY Probiotic Product (Probiotic), 1 CAP PO TID Risperidone (Risperdal), 2 MG PO QAM Risperidone (Risperdal), 4 MG PO HS Senna (Senokot), 8.6 MG PO BID Sucralfate (Carafate), 10 ML PO QID Topiramate (Qudexy Xr), 100 MG PO BID Trazodone Hcl (Trazodone), 150 MG PO HS Venlafaxine Hcl (Effexor Xr), 150 MG PO QAM Scheduled PRN Albuterol Sulfate (Proair Respiclick), 2 PUFFS INH TID PRN for SOB/Wheezing Levalbuterol (Levalbuterol HCl), 3 ML NEB Q4H PRN for Shortness of Breath Meclizine Hcl (Meclizine Hcl), 25 MG PO TID PRN for Dizziness or Vertigo Menthol-Zinc Oxide (Calmoseptine), 1 APPLN TOP DAILY PRN for Skin Irritation Ondasetron Odt (Zofran Odt), 4 MG SL Q8 PRN for Nausea Oxycodone HCl (Oxycodone HCl), 10-20 MG PO Q8 PRN for Pain Polyethylene Glycol 3350 (Miralax), 17 GM PO DAILY PRN for Constipation Allergies Coded Allergies: Adhesives (Verified Allergy, Intermediate, TAPE- HIVES, 10/12/17) Ceftriaxone (Verified Allergy, Intermediate, rash, 10/12/17) Has tolerated cefepime and Zerbaxa Chlorhexidine (Verified Allergy, Intermediate, RASH, 10/12/17) Ciprofloxacin (Verified Allergy, Intermediate, hives, 10/12/17) Imipenem (Verified Allergy, Intermediate, PT REPORTS ITCHING, 10/12/17) Latex (Verified Allergy, Intermediate, hives, 10/12/17) Levofloxacin (Verified Allergy, Intermediate, rash, 10/12/17) Linezolid (Verified Allergy, Intermediate, rash, 10/12/17) Nitrofurantoin (Verified Allergy, Intermediate, rash and hives, 10/12/17) Piperacillin (Verified Allergy, Intermediate, SEVERE RASH, HIVES, 10/12/17) Tazobactam (Verified Allergy, Intermediate, SEVERE RASH, HIVES, 10/12/17) Vancomycin (Verified Allergy, Intermediate, rash, 10/12/17) Tobramycin (Verified Allergy, Mild, MILD RASH ON ARM, RED FACE, 10/12/17) IMPROVED AFTER BENADRYL, TAKING REST OF DOSE Amikacin (Verified Allergy, Unknown, PER DR ROBINS,RXN WAS TO ZOSYN NOT AMKrash;hives, 10/12/17) Sulfamethoxazole w/Trimethoprim (Verified Allergy, Unknown, Hives, 10/12/17 ) Can be pretreated with 10mg Zytrec 45 min prior to admin Buspirone (Verified Adverse Reaction, Severe, HALLUCINATIONS, 10/12/17) Physical Exam Vital Signs Date Time Temp Pulse Resp B/P (MAP) Pulse Ox O2 Delivery O2 Flow Rate FiO2 10/12/17 17:08 94 18 122/74 98 10/12/17 13:06 36.3 96 20 138/82 100 Room Air Physical Exam GENERAL: Sitting up in bed, disheveled, no distress, non-toxic EYE EXAM: normal conjunctiva. PERRL and EOM's intact. OROPHARYNX: no exudate, no erythema, lips, buccal mucosa, and tongue normal and mucous membranes are moist NECK: supple, no nuchal rigidity, no adenopathy, non-tender LUNGS: Clear to auscultation. Normal chest wall mechanics HEART: no murmurs, S1 normal and S2 normal ABDOMEN: abdomen soft, non-tender, normo-active bowel sounds, no masses, no rebound or guarding. Suprapubic catheter in place with 1 cm of surrounding erythema. BACK: Back is symmetrical on inspection and there is no deformity, no midline tenderness, no CVA tenderness. SKIN: no rashes and no bruising UPPER EXTREMITIES: upper extremities are grossly normal. LOWER EXTREMITIES: Amputations just distal to the knees. Right proximal tibia on lateral aspect with a 3 by 3 cm hole with faint erythema tracking down to muscle. No drainage. Granulation tissue present. No drainage. No bone involvement. NEURO EXAM: Normal sensorium, cranial nerves II-XII intact, normal speech, no weakness of arms. No drift. Finger to nose intact. Gross sensation intact. Medical Decision & Procedures ER Provider Diagnostic Interpretation: Radiology results as stated below per my review and the radiologist's interpretation: CHEST 1 VW FRONT-NOT PORTABLE FINDINGS: There is a right-sided A-Port catheter present. A right-sided ventriculopleural shunt is visualized. The heart is mildly enlarged. There is no failure. There is no focal pulmonary consolidation. There are no pleural effusions.[ IMPRESSION: No active disease in the chest. Electronically signed by: Yair Morrison M.D. 10/12/2017 2:50 PM R TIBIA/FIBULA 2 VIEWS ROUTINE DISCUSSION: Evidence for below knee amputation. There is fusion of the distal aspects of the residual tibia and fibula. The mid fibular shaft shows a somewhat coarsened/irregular trabecular pattern with potential abnormal depressed reaction at its margin. Possibility of osteomyelitis is considered. Mild soft tissue edema is present. There is no evidence for soft tissue swelling. IMPRESSION: 1. Cortical irregularity mid fibular shaft medially superior to the amputation site. 2. Associated soft tissue edema. 3. Possibility of developing osteomyelitis is considered. The above report was generated using voice recognition software. It may contain grammatical, syntax or spelling errors. Electronically signed by: Werner Mcmahon M.D. 10/12/2017 2:53 PM SOFT TISSUE NECK FINDINGS: Normal prevertebral soft tissues. No distention of the hypopharynx. The epiglottis is normal. IMPRESSION: Normal study. The above report was generated using voice recognition software. It may contain grammatical, syntax or spelling errors. Electronically signed by: Werner Mcmahon M.D. 10/12/2017 2:[address] NONCONTRAST Findings: Mild mucosal thickening within the left maxillary sinus. The mastoid air cells are clear. No fractures within the calvarium. The right frontal approach ventriculostomy catheter the tip terminating near the midline of the lateral ventricles. This remains unchanged. There is an old dianne hole within the left frontal bone and right occipital bone. There is no hematoma, midline shift, mass, acute infarct. The lateral and third ventricles remain unchanged and are almost completely decompressed. The fourth ventricle is stable in size. 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 There appears to be fenestration of the posterior falx with interdigitating of the gyri. 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 Impression: 1. No significant change compared to the prior study. No acute intracranial abnormality. 2. Right frontal ventriculostomy catheter remains unchanged position. There is near complete decompression of the lateral and third ventricles which is also stable. 3. Congenital abnormalities as described above. Electronically signed by: Edward Dixon M.D. 10/12/2017 2:39 PM Laboratory Results 10/12/17 14:00 Red Blood Count 4.35, Mean Corpuscular Volume 94.0, Mean Corpuscular Hemoglobin 30.3, Mean Corpuscular Hemoglobin Concent 32.3, Mean Platelet Volume 10.7, Neutrophils (%) (Auto) 63.8, Lymphocytes (%) (Auto) 25.6, Monocytes (%) (Auto) 7.4, Eosinophils (%) (Auto) 2.5, Basophils (%) (Auto) 0.5, Neutrophils # (Auto) 5.64, Lymphocytes # (Auto) 2.26, Monocytes # (Auto) 0.65, Eosinophils # (Auto) 0.22, Basophils # (Auto) 0.04 10/12/17 14:00 Test 10/12/17 14:00 10/12/17 15:13 White Blood Count 8.83 K/uL (4.8-10.8) Red Blood Count 4.35 M/uL (4.2-5.4) Hemoglobin 13.2 g/dL (12.0-16.0) Hematocrit 40.9 % (37-47) Mean Corpuscular Volume 94.0 fL (80-100) Mean Corpuscular Hemoglobin 30.3 pg (25-34) Mean Corpuscular Hemoglobin Concent 32.3 g/dl (32-36) Platelet Count 200 K/uL (130-400) Mean Platelet Volume 10.7 fL (7.4-10.4) Neutrophils (%) (Auto) 63.8 % Lymphocytes (%) (Auto) 25.6 % Monocytes (%) (Auto) 7.4 % Eosinophils (%) (Auto) 2.5 % Basophils (%) (Auto) 0.5 % Neutrophils # (Auto) 5.64 K/uL (1.4-6.5) Lymphocytes # (Auto) 2.26 K/uL (1.2-3.4) Monocytes # (Auto) 0.65 K/uL (0.11-0.59) Eosinophils # (Auto) 0.22 K/uL (0-0.5) Basophils # (Auto) 0.04 K/uL (0-0.2) RDW Standard Deviation 50.3 fL (36.4-46.3) RDW Coefficient of Variation 14.7 % (11.5-14.5) Immature Granulocyte % (Auto) 0.2 % Immature Granulocyte # (Auto) 0.02 K/uL (0.00-0.02) Anion Gap 10.0 mmol/L (3-11) Estimated GFR () 105.1 Estimated GFR (Non- 90.7 BUN/Creatinine Ratio 20.8 (10-20) Calcium Level 8.3 mg/dl (8.5-10.1) Total Bilirubin 0.2 mg/dl (0.2-1) Direct Bilirubin < 0.1 mg/dl (0-0.2) Aspartate Amino Transf (AST/SGOT) 11 U/L (15-37) Alanine Aminotransferase (ALT/SGPT) 23 U/L (12-78) Alkaline Phosphatase 110 U/L (45-117) Total Protein 7.5 gm/dl (6.4-8.2) Albumin 2.9 gm/dl (3.4-5.0) Lipase 119 U/L (73-393) Urine Color YELLOW Urine Appearance CLOUDY (CLEAR) Urine pH 5.5 (4.5-7.5) Urine Specific [place] 1.013 (1.000-1.030) Urine Protein NEG (NEG) Urine Glucose (UA) NEG (NEG) Urine Ketones NEG (NEG) Urine Occult Blood NEG (NEG) Urine Nitrite POS (NEG) Urine Bilirubin NEG (NEG) Urine Urobilinogen NEG (NEG) Urine Leukocyte Esterase TRACE (NEG) Urine WBC (Auto) 1-5 /hpf (0-5) Urine RBC (Auto) 0-4 /hpf (0-4) Urine Hyaline Casts (Auto) 1-5 /lpf (0-5) Urine Epithelial Cells (Auto) >30 /lpf (0-5) Urine Bacteria (Auto) NEG (NEG) Urine Test NEG (NEG) Laboratory results per my review. Medications Administered Medications (Trade) Dose Ordered Sig/Brenna Route Start Time Stop Time Status Last Admin Dose Admin Sodium Chloride 500 ml @ 999 mls/hr Q31M STAT IV 10/12/17 13:33 10/12/17 14:03 DC 10/12/17 14:47 999 MLS/HR Ketorolac Tromethamine (Toradol Inj) 30 mg NOW STAT IV 10/12/17 13:33 10/12/17 13:36 DC 10/12/17 14:10 30 MG Diphenhydramine HCl (Benadryl Inj) 50 mg NOW STAT IV 10/12/17 13:33 10/12/17 13:36 DC 10/12/17 14:10 50 MG Heparin Sodium (Porcine) (Heparin 100 Unit/ml 5ml Flush) 5 ml STK-MED ONCE .ROUTE 10/12/17 16:43 10/12/17 16:44 DC 10/12/17 17:07 5 ML ED Course ED COURSE: Vital signs were reviewed and showed normal vitals. The patients medical record was reviewed The above diagnostic studies were performed and reviewed. ED treatments and interventions as stated above. 1322: The patient was evaluated in room B9. A complete history and physical examination was performed. 1333: Ordered Benadryl Inj 50 mg IV, Toradol Inj 30 mg IV, Sodium Chloride 500 ml @ 999 mls/hr IV. 1635: Upon reevaluation, the patient is resting comfortably. I discussed my findings with the patient and she understands and agrees with the treatment plan. Based on the patients age, coexisting illnesses, exam and lab findings the decision to treat as an outpatient was made. The patient remained stable while under my care. The patient appeared well at the time of discharge. Medical Decision Differential Diagnosis includes but is not limited to dehydration, stroke, anemia, hypoglycemia, hyponatremia, hypernatremia, urinary tract infection, pneumonia, bronchitis, sepsis, gastroenteritis, additional abdominal pathology, metabolic abnormalities and infections. Patient is a 32-year-old female that presents the ER with a past medical history of spina bifida and neurogenic bladder for diffuse myalgias and arthralgias. No recorded fevers. She also admits to a headache as well. This is consistent with her previous migraines and unchanged in any way. She is neurologically intact. CBC unremarkable. BMP shows a mild hypokalemia. LFTs, bilirubin lipase is normal. UA with nitrates trace leuks and greater than 30 epithelial cells. Discussed with infectious disease and urology at [facility]. Both were in agreement with culturing. X-ray of the right stump with questionable osteo-. Did discuss with Dr. Sauceda of infectious disease. He favors that the bone deformity is likely from the recent amputation which is reasonable as the wound does not go down to the bone and is improving per mom and appears to be consistent with recent pictures taken at wound care. Unable to contact the wound care clinic. We will continue doxycycline prophylaxis. Patient was given fluids. Patient was also given Toradol and Benadryl. Updated at bedside. Discharge follow-up PCP as an outpatient. Discussed with Pt concerning signs and symptoms to watch out for. Pt was instructed to follow up with their PCP and discussed with the patient their option to return to the ED at anytime for persistent or worsening symptoms. The appropriate anticipatory guidance and out-patient management, including indications for return to the emergency department, were explained at length to the patient and understood. Medication Reconcilliation Current Medication List: was personally reviewed by me Blood Pressure Screening Patient's blood pressure: Elevated blood pressure Blood pressure disposition: Elevated BP felt to be situational Consults Time Called: [id number] Consulting Physician: Dr. Sauceda - Infectious Disease Returned Call: [phone] I reviewed the patient's case with Dr. Sauceda. He recommends urine culture and holding on new antibiotics. Additional Consults: Time Called: 1622 Consulted Physician: [facility] Returned Call: [phone] Additional Comments: I reviewed the patient's case with [facility]. They agree with urine culture, and will follow up with the patient this week. Impression Primary Impression: Myalgia Additional Impressions: Ulcer Hypokalemia Scribe Attestation The scribe's documentation has been prepared under my direction and personally reviewed by me in its entirety. I confirm that the note above accurately reflects all work, treatment, procedures, and medical decision making performed by me. Departure Information Dispostion Home / Self-Care Referrals Gela Boone M.D. (PCP) Forms HOME CARE DOCUMENTATION FORM, IMPORTANT VISIT INFORMATION, WORK / SCHOOL INSTRUCTIONS Patient Instructions ED Muscle Aching, [facility] Additional Instructions Please follow up with your primary care doctor with in the next 24 hours. Any worsening of your symptoms, please return to the ED immediately. This includes any fevers greater than 100.4, worsening pain, chest pain, shortness breath, persistent nausea, vomiting, unable to eat or drink, or any other concerning signs or symptoms from your standpoint. Please make sure that you follow-up with wound care clinic within 24-48 hours. Please continue your doxycycline. Problem Qualifiers
== END 2017-10-12 16:48 | disposition home or self-care (01) ==
LOC: C.EDB 12:48
DX: M79.1 Myalgia (principal); L97.319 Non-pressure chronic ulcer of right ankle with unspecified severity; E87.6 Hypokalemia; Z89.511 Acquired absence of right leg below knee; F41.9 Anxiety disorder, unspecified; Z89.512 Acquired absence of left leg below knee; Q05.9 Spina bifida, unspecified; J45.909 Unspecified asthma, uncomplicated; K31.84 Gastroparesis; K21.9 Gastro-esophageal reflux disease without esophagitis; E03.9 Hypothyroidism, unspecified; Z86.711 Personal history of pulmonary embolism; F25.9 Schizoaffective disorder, unspecified; Z79.899 Other long term (current) drug therapy; Z91.048 Other nonmedicinal substance allergy status; Z88.1 Allergy status to other antibiotic agents; Z88.8 Allergy status to other drugs, medicaments and biological substances; Z88.2 Allergy status to sulfonamides

== ENCOUNTER 2017-12-26 14:49 | Emergency (ER) | payer BC, OTHER ==
[~2017-12-26 14:49] MED LIST changes: +DAPT500I IV; -DOXY-300 PO; -FLUC100T4 PO; -LINA1CAP2 PO; -LITH1TAB PO; -LITH600C PO; -MCRK/20 PO; -MENTOIN TOP; +MENTPOW4 TOP; -MULTTAB58 PO; +NALT1TAB14 PO; +POTA-639 PO; +PRENTAB26 PO; -VENL150C PO; +VENL150C71 PO; +[UNRECOGNIZED DRUG - CODE] TOP
[2017-12-26 14:52] VITALS: TEMP 36.4; Ht 119.4 cm
[2017-12-26] MEDS ORDERED: CETIRIZINE HCL 10 MG TAB PO STA (15:50)
[2017-12-26] MEDS ORDERED: CEFTAROLINE FOSAMIL INJ 600 MG in SODIUM CHLORIDE 0.9% 250ML 250 ML IV STA (15:54)
--- NOTE | 2017-12-26 16:01 | EMERGENCY ROOM VISIT NOTE ---
ED Visit Note First contact with patient: 14:57 CHIEF COMPLAINT: Hallucinations from IV antibiotics HISTORY OF PRESENT ILLNESS: This 32-year-old female patient, significant past medical history of spina bifida, currently being treated with IV daptomycin for MRSA of the right lower extremity and Pseudomonas in the urine, presents to the emergency department via wheelchair with her mother, complaining of hallucinations since starting on the IV daptomycin. The patient has been treated for 8 days with this medication and has been having intermittent hallucinations since that time. Over the past 2 days, the hallucinations have become worse, and the patient has been concerned for her mother leaving her not returning as well as seeing people out in the yard who were not there. The patient is having difficulty sleeping due to the hallucinations. She states she contacted Dr. Sauceda's office today, and spoke with a nurse, Mignon, who recommended she come to the emergency department for evaluation. The patient states she is to be treated with the daptomycin for 14 days, followed by 3-5 days without the medication and have a repeat culture at that point. She states she has not had any repeat testing done. Her mother reports feeling that the urine continues to have sediment in it and she may continue to be experiencing an infection related to the catheter. This is not the primary complaint, however they state the patient has generally improved much faster while on antibiotics then she has this episode. The patient did have an endoscopy this morning, so has been a little more fatigued than normal. Patient denies any fevers. She does have a wound VAC on the right lower extremity. She has been seeing the wound center regularly, denies any worsening redness, swelling, or pain of that extremity. REVIEW OF SYSTEMS: A 10 system review of systems was performed with positives and pertinent negatives listed in the history of present illness. All other systems were reviewed and are negative. PMH: Spina bifida, MRSA skin infection, Pseudomonas UTI, chronic pain, asthma, migraines, GERD, hypothyroidism, SOCIAL HISTORY: The patient lives locally with family. She denies drug, alcohol , tobacco use. PHYSICAL EXAM: VITALS: Vitals are noted on the nurse's note and reviewed by myself. Vital signs stable. GENERAL: This is a 32-year-old white female, wheelchair bound, bilateral lower extremity amputee, in no acute distress, nondiaphoretic, well-developed well- nourished. SKIN: Wound VAC in place in the right lower extremity. The skin was otherwise without rashes, erythema, edema, or bruising. There is no tenting of the skin. Capillary reflex less than 2 seconds. HEAD: Normocephalic atraumatic. EARS: External auditory canals clear, tympanic membranes pearly olivo without erythema or effusion bilaterally. EYES: Pupils equal round and reactive to light and accommodation. Conjunctivae without injection, sclerae without icterus. Extraocular movements intact. NOSE: Patent, turbinates without inflammation or discharge. No sinus tenderness. MOUTH: Mucous membranes moist. Tonsils are not enlarged. Pharynx without erythema or exudate. Uvula midline. Airway patent. Tongue does not deviate. NECK: Supple without nuchal rigidity. No lymphadenopathy. No thyromegaly. Cervical spine is nontender. No JVD. HEART: Regular rate and rhythm without murmurs gallops or rubs. LUNGS: Clear to auscultation bilaterally without wheezes, rales or rhonchi. No dullness to percussion. No retractions or accessory muscle use. ABDOMEN: Suprapubic catheter in place. Positive bowel sounds x 4. Normal tympanic percussion. Soft, nontender, without masses or organomegaly. Stewart sign negative. No guarding or rebound tenderness. MUSCULOSKELETAL: No muscle atrophy, erythema, or edema noted. Full range of motion without joint tenderness in all extremities. No tenderness to palpation. Normal gait. Strength 5/5 throughout. NEURO: Patient was alert and oriented to person place and time. Normal sensation to light and sharp touch. Deep tendon reflexes 2+ throughout. No focal neurological deficits. EMERGENCY DEPARTMENT COURSE: The patient was seen and evaluated as above. Previous medical records reviewed. Urinalysis and culture obtained from the patient's catheter and sent to lab for testing. I consulted with Dr. Sauceda, who recommended switching the patient from the daptomycin to ceftaroline IV at this time. The patient did request received the first dose here in the emergency department. The patient was given her first dose of ceftaroline here in the ED after being treated with 10 mg Zyrtec. The patient complained of bilateral arm pain and possible rash about fdc through the IV infusion. The IV antibiotic was discontinued and the patient was given 50 mg Benadryl. She began feeling better, so the IV infusion was completed. There were no hives or rash noted, and the patient's arm pain I suspect was unrelated to the IV port infusion. I did recommend that she pretreat with Benadryl in the future for possible allergic reaction. She was encouraged to follow-up closely with Dr. Sauceda. All questions answered to the patient and her mother's satisfaction. She was given strict return precautions. Discharge instructions reviewed. The patient was discharged home in good condition. I attest that I have personally reviewed the patient's current medication list. Patient was found to have normal blood pressure on screening and does not require follow-up. Differential diagnosis includes allergic reaction, hallucinations, psychological condition, appropriate response to antibiotics, malignancy, and others. DIAGNOSIS: Adverse reaction to antibiotics The chart was completed utilizing lettrs voice recognition software. Grammatical errors, random word insertions, pronoun errors, and incomplete sentences are an occasional consequence of this system due to software limitations, ambient noise, and hardware issues. Any formal questions or concerns about the content, text, or information contained within the body of this dictation should be directly addressed to the provider for clarification. Problem List Medical Problems: (1) Anxiety Status: Chronic (2) Asthma Status: Chronic (3) Gastroparesis Status: Chronic (4) GERD (gastroesophageal reflux disease) Status: Chronic (5) Hydrocephalus Status: Chronic (6) MRSA (methicillin resistant Staphylococcus aureus) Status: Resolved (7) Osteomyelitis Status: Resolved (8) Schizoaffective disorder, bipolar type Status: Chronic (9) Spina bifida Permanent Comment: Status: Chronic Current/Historical Medications Scheduled Benztropine Mesylate (Benztropine Mesylate), 1 MG PO BID Ceftaroline Fosamil (Teflaro), 600 MG IV Q12 Cholecalciferol (Vitamin D), 2,000 INTER.UNIT PO BID Cyanocobalamin (Vitamin B-12), 500 MCG PO QAM Daptomycin (Daptomycin), 500 MG IV QPM Docusate Sodium (Colace), 100 MG PO BID Famotidine (Pepcid), 40 MG PO HS Ferrous Sulfate (Ferrous Sulfate), 325 MG PO BID Fluticasone Prop/Salmeterol (Advair Diskus 500/50 60 Dose), 1 PUFF INH BID Gabapentin (Gabapentin), 300 MG PO BID Hydroxyzine HCl (Hydroxyzine Pamoate), 50 MG PO HS Hydroxyzine HCl (Hydroxyzine HCl), 25 MG PO QAM Hyoscyamine Sulfate (Levsin), 0.125 MG PO TID Levothyroxine Sodium (Levothyroxine Sodium), 88 MCG PO QAM Montelukast Sod (Montelukast Sodium), 10 MG PO HS Multivit/Min/Iron/Fol Ac/Pren ( Vitamin), 1 TAB PO NOON Naltrexone HCl-Bupropion HCl (Contrave 8-90 mg), 2 TAB PO BID Nystatin (Topical) (Nystop), 1 APPLN TOP UD Pantoprazole (Pantoprazole Sodium), 40 MG PO QAM Probiotic Product (Probiotic), 1 CAP PO TID Risperidone (Risperdal), 2 MG PO QAM Risperidone (Risperdal), 4 MG PO HS Senna (Senokot), 8.6 MG PO BID Topiramate (Qudexy Xr), 100 MG PO BID Trazodone Hcl (Trazodone), 150 MG PO HS Venlafaxine Hcl (Effexor Xr), 150 MG PO QAM Wound Dressings (Hydrofera Blue Foam Dress), 1 PATCH TOP BID Scheduled PRN Albuterol Sulfate (Proair Respiclick), 2 PUFFS INH TID PRN for SOB/Wheezing Cetirizine (Zyrtec), 10 MG PO DAILY PRN for Antibiotics Levalbuterol (Levalbuterol HCl), 3 ML NEB Q4H PRN for Shortness of Breath Meclizine Hcl (Meclizine Hcl), 25 MG PO TID PRN for Dizziness or Vertigo Menthol-Zinc Oxide (Gold Nayak), 1 APPLN TOP DAILY PRN for Affected Skin Folds Ondasetron Odt (Zofran Odt), 4 MG SL Q8 PRN for Nausea Oxycodone HCl (Oxycodone HCl), 10-20 MG PO Q8 PRN for Pain Polyethylene Glycol 3350 (Miralax), 17 GM PO DAILY PRN for Constipation Potassium Ext Rel (Klor-Con), 20 MEQ PO DAILY PRN for POTASSIUM LEVELS Sucralfate (Carafate), 10 ML PO QID PRN for PRN Allergies Coded Allergies: Adhesives (Verified Allergy, Intermediate, TAPE- HIVES, 12/25/17) Ceftriaxone (Verified Allergy, Intermediate, rash, Has tolerated cefepime and Zerbaxa, 12/25/17) Chlorhexidine (Verified Allergy, Intermediate, RASH, 12/25/17) Ciprofloxacin (Verified Allergy, Intermediate, hives, 12/25/17) Imipenem (Verified Allergy, Intermediate, PT REPORTS ITCHING, 12/25/17) Latex (Verified Allergy, Intermediate, hives, 12/25/17) Levofloxacin (Verified Allergy, Intermediate, rash,HEARD VOICES, 12/25/17) Linezolid (Verified Allergy, Intermediate, rash, 12/25/17) Nitrofurantoin (Verified Allergy, Intermediate, rash and hives, 12/25/17) Piperacillin (Verified Allergy, Intermediate, SEVERE RASH, HIVES, 12/25/17) Tazobactam (Verified Allergy, Intermediate, SEVERE RASH, HIVES, 12/25/17) Vancomycin (Verified Allergy, Intermediate, rash, 12/25/17) Tobramycin (Verified Allergy, Mild, MILD RASH ON ARM, RED FACE, 12/25/17) IMPROVED AFTER BENADRYL, TAKING REST OF DOSE Amikacin (Verified Allergy, Unknown, PER DR ROBINS,RXN WAS TO ZOSYN NOT AMKrash;hives, 12/25/17) Sulfamethoxazole w/Trimethoprim (Verified Allergy, Unknown, Hives, 12/25/17 ) Can be pretreated with 10mg Zytrec 45 min prior to admin Buspirone (Verified Adverse Reaction, Severe, HALLUCINATIONS, 12/25/17) Vital Signs Date Time Temp Pulse Resp B/P (MAP) Pulse Ox O2 Delivery O2 Flow Rate FiO2 12/26/17 16:36 93 20 160/89 97 Room Air 12/26/17 14:52 36.4 93 18 119/89 97 Room Air Laboratory Results Test 12/26/17 16:35 Urine Color YELLOW Urine Appearance TURBID (CLEAR) Urine pH 7.5 (4.5-7.5) Urine Specific Robert 1.014 (1.000-1.030) Urine Protein NEG (NEG) Urine Glucose (UA) NEG (NEG) Urine Ketones NEG (NEG) Urine Occult Blood NEG (NEG) Urine Nitrite POS (NEG) Urine Bilirubin NEG (NEG) Urine Urobilinogen NEG (NEG) Urine Leukocyte Esterase LARGE (NEG) Urine WBC (Auto) >30 /hpf (0-5) Urine RBC (Auto) 0-4 /hpf (0-4) Urine Hyaline Casts (Auto) 1-5 /lpf (0-5) Urine Epithelial Cells (Auto) 10-20 /lpf (0-5) Urine Bacteria (Auto) 4+ (NEG) Medications Administered Medications (Trade) Dose Ordered Sig/Brenna Route Start Time Stop Time Status Last Admin Dose Admin Cetirizine HCl (zyrTEC TAB) 10 mg NOW STAT PO 12/26/17 15:50 12/26/17 15:52 DC 12/26/17 16:30 10 MG Ceftaroline Fosamil 600 mg/ Sodium Chloride 270 ml @ 250 mls/hr NOW STAT IV 12/26/17 15:54 12/26/17 16:58 DC 12/26/17 16:54 250 MLS/HR Diphenhydramine HCl (Benadryl Inj) 50 mg NOW STAT IV 12/26/17 17:46 12/26/17 17:47 DC 12/26/17 17:59 50 MG Heparin Sodium (Porcine) (Heparin 100 Unit/ml 5ml Flush) 5 ml STK-MED ONCE .ROUTE 12/26/17 18:38 12/26/17 18:39 DC 12/26/17 18:38 5 ML Departure Information Impression Primary Impression: Adverse reaction to antibiotic Additional Impressions: MRSA infection Pseudomonas infection Dispostion Home / Self-Care Condition GOOD Prescriptions Ceftaroline Fosamil (TEFLARO) 600 Mg Inj 600 MG IV Q12 for 7 Days, #14 DOSE Prov: Nelda Dang, WILLIAMS 12/26/17 Referrals Gela Boone M.D. (PCP) Sourav Sauceda MD Patient Instructions ED Drug React Adverse Other, [facility] Additional Instructions You were seen in the emergency department today for an adverse reaction to you you should discontinue the IV daptomycin and start IV ceftaroline every 12 hours for the next 7 days. Urine culture was sent to the lab for testing. Dr. Sauceda will follow up with this. You may wish to pretreat with Zyrtec as you normally do due to previous reaction to ceftriaxone. Please continue to follow-up with Dr. Sauceda, your infectious disease specialist. Please continue to follow-up with the wound clinic regarding the wound on your right lower extremity. Return to the emergency department for any significantly worsening adverse reactions, pain, fevers, swelling, or other concerning symptoms. Problem Qualifiers
[2017-12-26] MEDS ORDERED: CEFT600I IV (17:02)
[2017-12-26] MEDS ORDERED: DiphenhydrAMINE HCL 50 MG/ML VIAL IV STA (17:46)
[2017-12-26 18:40] VITALS: BP 102/80; PULSE 100; O2SAT 96
--- NOTE | 2017-12-28 15:03 | Pharmacy Progress Note ---
ED Pharmacist Culture FollowUp Date of Service: Dec 28, 2017. Patient growing a mostly sandoval-sensitive klebsiella and proteus in the urine. The patient was recently switched to teflaro IV for skin infection, which should cover these organisms as well. This was discussed with Dr. Sauceda, who follows the patient, and it was agreed that no further intervention was needed.
== END 2017-12-26 18:40 | disposition home or self-care (01) ==
LOC: C.EDB 14:51
DX: R44.2 Other hallucinations (principal); T36.8X5A Adverse effect of other systemic antibiotics, initial encounter; B95.62 Methicillin resistant Staphylococcus aureus infection as the cause of diseases classified elsewhere; A49.8 Other bacterial infections of unspecified site; Q05.9 Spina bifida, unspecified; J45.909 Unspecified asthma, uncomplicated; M86.9 Osteomyelitis, unspecified; K21.9 Gastro-esophageal reflux disease without esophagitis; F41.9 Anxiety disorder, unspecified; F25.0 Schizoaffective disorder, bipolar type; Z79.899 Other long term (current) drug therapy; Z88.1 Allergy status to other antibiotic agents; Z88.8 Allergy status to other drugs, medicaments and biological substances

== ENCOUNTER → 2018-01-01 | Outpatient (CLI) | payer BC, OTHER ==
[~2018-01-01] MED LIST changes: +CEFT600I IV; +DIHY1INJ2 INJ; +DIPH25CA5 PO; +METO-157 PO; +MGRIN; +MXT150 PO; +VENL150C2 PO; -VENL150C71 PO; +ZOLM1TAB3 PO; +[UNRECOGNIZED DRUG - CODE]; +[UNRECOGNIZED DRUG - CODE] IV; +[UNRECOGNIZED DRUG - CODE] PO
[2018-01-01 14:35] LABS: HEMATOCRIT 39.2 % (37-47); HEMOGLOBIN 12.1 g/dL (12.0-16.0); MEAN CELL VOLUME 94.5 fL (80-100); MEAN CORPUSCULAR HEMOGLOBIN 29.2 pg (25-34); MEAN CORPUSCULAR HGB CONC 30.9 g/dl (32-36); MEAN PLATELET VOLUME 11.3 fL (7.4-10.4); PLATELET COUNT 218 K/uL (130-400); RED CELL DISTRIBUTION WIDTH CV 16.4 % (11.5-14.5); RED CELL DISTRIBUTION WIDTH SD 56.7 fL (36.4-46.3); WHITE BLOOD COUNT 6.77 K/uL (4.8-10.8)
[2018-01-01 14:50] LABS: ALBUMIN 2.9 gm/dl (3.4-5.0); ALKALINE PHOSPHATASE 95 U/L (45-117); ALT/SGPT 24 U/L (12-78); AST/SGOT 11 U/L (15-37); BLOOD UREA NITROGEN 12 mg/dl (7-18); CALCIUM 8.8 mg/dl (8.5-10.1); CARBON DIOXIDE 26 mmol/L (21-32); CREATININE 0.58 mg/dl (0.60-1.20); GLUCOSE 96 mg/dl (70-99); POTASSIUM 3.6 mmol/L (3.5-5.1); SODIUM 140 mmol/L (136-145); TOTAL PROTEIN 7.5 gm/dl (6.4-8.2)
== END | disposition home or self-care (01) ==
LOC: C.LABSPEC 14:13
PROVIDERS: ATTEND Internal Medicine Infectious Disease
DX: L03.90 Cellulitis, unspecified (principal)

== ENCOUNTER 2018-01-07 10:37 | Emergency (ER) | payer BC, OTHER ==
[~2018-01-07] VITALS: Ht 119.4 cm; Wt 120.0 kg
[~2018-01-07 10:37] MED LIST changes: -DAPT500I IV; -DIHY1INJ2 INJ; -DIPH25CA5 PO; -METO-157 PO; -MGRIN; -MXT150 PO; -VENL150C2 PO; +VENL150C71 PO; -ZOLM1TAB3 PO; -[UNRECOGNIZED DRUG - CODE]; -[UNRECOGNIZED DRUG - CODE] IV; -[UNRECOGNIZED DRUG - CODE] PO
[2018-01-07 10:43] VITALS: TEMP 36.6; Ht 119.4 cm; Wt 120.0 kg
[2018-01-07] MEDS ORDERED: DiphenhydrAMINE HCL 50 MG/ML VIAL IV STA (11:15)
[2018-01-07] MEDS ORDERED: KETOROLAC TROMETHAMINE 30 MG/ML VIAL IV STA (11:15)
[2018-01-07] MEDS ORDERED: ONDANSETRON INJ 2 MG/ML 2 ML VIAL IV STA (11:15)
[2018-01-07] MEDS ORDERED: DEXAMETHASONE **PF** INJ 10 MG/ML VIAL IV ONE (11:15)
[2018-01-07] MEDS ORDERED: SODIUM CHLORIDE 0.9% 1000ML 1,000 ML IV STA (11:15)
[2018-01-07 11:41] LABS: BASO % 0.5 %; BASO ABS # 0.03 K/uL (0-0.2); EOS ABS # 0.25 K/uL (0-0.5); HEMATOCRIT 39.2 % (37-47); HEMOGLOBIN 12.3 g/dL (12.0-16.0); IG# 0.01 K/uL (0.00-0.02); LYMPH % 19.7 %; LYMPH ABS # 1.24 K/uL (1.2-3.4); MEAN CELL VOLUME 93.3 fL (80-100); MEAN CORPUSCULAR HEMOGLOBIN 29.3 pg (25-34); MEAN CORPUSCULAR HGB CONC 31.4 g/dl (32-36); MEAN PLATELET VOLUME 10.4 fL (7.4-10.4); MONO ABS # 0.57 K/uL (0.11-0.59); NEUT % 66.6 %; PLATELET COUNT 201 K/uL (130-400); RED CELL DISTRIBUTION WIDTH CV 16.3 % (11.5-14.5); RED CELL DISTRIBUTION WIDTH SD 55.5 fL (36.4-46.3)
[2018-01-07 11:59] LABS: CALCIUM 8.8 mg/dl (8.5-10.1); CREATININE 0.66 mg/dl (0.60-1.20); POTASSIUM 3.9 mmol/L (3.5-5.1)
--- NOTE | 2018-01-07 12:10 | DIAGNOSTIC IMAGING REPORT ---
HEAD WITHOUT CONTRAST (CT) CT DOSE: 1855.44 mGycm HISTORY: Mental status change pabon/ pt with shunt TECHNIQUE: Multiaxial CT images of the head were performed without the use of intravenous contrast. A dose lowering technique was utilized adhering to the principles of ALARA. Comparison: 10/12/2017 Findings: The paranasal sinuses and mastoid air cells are clear. The Calvarium and Skull Base Are Intact. The Ventricles and Sulci Are within Normal Limits. There Is No Mass, Hematoma, Midline Shift, or Acute Infarct.S, the patient's ventriculoperitoneal shunt catheter appears to be aligned appropriately. No evidence for ventricular distention. 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 There is no evidence for acute intracranial hemorrhage. There is no evidence for hydrocephalus. Impression: 1. 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 2. No acute intracranial abnormality within limitations of patient motion. 3. Shunt catheter in stable position. The above report was generated using voice recognition software. It may contain grammatical, syntax or spelling errors. Electronically signed by: Werner Mcmahon M.D. 01/07/2018 12:09 PM Dictated Date/Time: 01/07/2018 12:07 PM
[2018-01-07] MEDS ORDERED: MoRPHine SULFATE 10 MG/ML CARP/VIAL IV STA (12:35)
[2018-01-07 12:41] VITALS: BP 93/52; PULSE 64; O2SAT 97
--- NOTE | 2018-01-07 12:51 | EMERGENCY ROOM VISIT NOTE ---
History First contact with patient: 11:07 Chief Complaint: OTHER COMPLAINT Stated Complaint: SHUNT PROBLEMS POSSIBLY History of Present Illness The patient is a 32 year old female who is well-known to the emergency room presents today with her mother with possible shunt problems. The patient states that she has had a headache over the past 2 days. She has been taking Tylenol in addition to her OxyContin which is 20 mg with minimal relief of her headache. She states it feels like "a knife is through her head". She states the pain is all over. She states the pain is constant. She states that she gets blurred vision and feels dizzy and is a little nauseous over the past 2 days as well. The patient is currently being seen by the wound clinic and is on IV antibiotics for chronic wound care. She is followed closely by Dr. Sauceda. Review of Systems 10 system review was performed and was negative unless stated otherwise history of present illness. 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 (16) Osteomyelitis (17) Pulmonary embolism (18) Schizoaffective disorder, bipolar type (19) Shunt placement with revision x8 (20) Spina bifida (21) UTI (urinary tract infection) Surgical Problems: (1) S/P BKA (below knee amputation) bilateral Family History Cancer Diabetes mellitus Lung disease Social History Smoking Status: Never Smoker Alcohol Use: none Drug Use: none Marital Status: single Housing Status: lives with family Occupation Status: disabled Current/Historical Medications Scheduled Benztropine Mesylate (Benztropine Mesylate), 1 MG PO BID Ceftaroline Fosamil (Teflaro), 600 MG IV Q12 Cholecalciferol (Vitamin D), 2,000 INTER.UNIT PO BID Cyanocobalamin (Vitamin B-12), 500 MCG PO QAM Docusate Sodium (Colace), 100 MG PO BID Famotidine (Pepcid), 40 MG PO HS Ferrous Sulfate (Ferrous Sulfate), 325 MG PO BID Gabapentin (Gabapentin), 300 MG PO BID Hydroxyzine HCl (Hydroxyzine Pamoate), 50 MG PO HS Hydroxyzine HCl (Hydroxyzine HCl), 25 MG PO QAM Hyoscyamine Sulfate (Levsin), 0.125 MG PO TID Levothyroxine Sodium (Levothyroxine Sodium), 88 MCG PO QAM Montelukast Sod (Montelukast Sodium), 10 MG PO HS Multivit/Min/Iron/Fol Ac/Pren ( Vitamin), 1 TAB PO NOON Naltrexone HCl-Bupropion HCl (Contrave 8-90 mg), 2 TAB PO BID Nystatin (Topical) (Nystop), 1 APPLN TOP UD Pantoprazole (Pantoprazole Sodium), 40 MG PO QAM Probiotic Product (Probiotic), 1 CAP PO TID Risperidone (Risperdal), 2 MG PO QAM Risperidone (Risperdal), 4 MG PO HS Senna (Senokot), 8.6 MG PO BID Topiramate (Qudexy Xr), 100 MG PO BID Trazodone Hcl (Trazodone), 150 MG PO HS Venlafaxine Hcl (Effexor Xr), 150 MG PO QAM Wound Dressings (Hydrofera Blue Foam Dress), 1 PATCH TOP BID Scheduled PRN Albuterol Sulfate (Proair Respiclick), 2 PUFFS INH TID PRN for SOB/Wheezing Cetirizine (Zyrtec), 10 MG PO DAILY PRN for Antibiotics Levalbuterol (Levalbuterol HCl), 3 ML NEB Q4H PRN for Shortness of Breath Meclizine Hcl (Meclizine Hcl), 25 MG PO TID PRN for Dizziness or Vertigo Menthol-Zinc Oxide (Gold Nayak), 1 APPLN TOP DAILY PRN for Affected Skin Folds Ondasetron Odt (Zofran Odt), 4 MG SL Q8 PRN for Nausea Oxycodone HCl (Oxycodone HCl), 10-20 MG PO Q8 PRN for Pain Polyethylene Glycol 3350 (Miralax), 17 GM PO DAILY PRN for Constipation Potassium Ext Rel (Klor-Con), 20 MEQ PO DAILY PRN for POTASSIUM LEVELS Sucralfate (Carafate), 10 ML PO QID PRN for PRN Physical Exam Vital Signs Date Time Temp Pulse Resp B/P (MAP) Pulse Ox O2 Delivery O2 Flow Rate FiO2 01/07/18 12:41 64 20 93/52 97 Room Air 01/07/18 10:43 36.6 77 20 117/72 95 Room Air Physical Exam GENERAL: 32-year-old white female appears in no acute distress she is sitting in her handicap chair. MENTAL Status: Alert and oriented 3. HEAD: Atraumatic, nontender to palpation. EYES: PERRLA. EOMs intact. EARS: Canals clear. TMs without fluid level noted. NECK: Supple, no lymphadenopathy noted. No carotid bruits noted. LUNGS: Clear auscultation without wheezes rales or rhonchi. CARDIAC: Regular rate and rhythm without murmur. Pulses is full and equal throughout. NEURO:Cranial nerves two through 12 intact. Cerebellar function intact with [id number]. Fine motor intact with alternating finger motions. Medical Decision & Procedures ER Provider Diagnostic Interpretation: HEAD WITHOUT CONTRAST (CT) CT DOSE: 1855.44 mGycm HISTORY: Mental status change pbaon/ pt with shunt TECHNIQUE: Multiaxial CT images of the head were performed without the use of intravenous contrast. A dose lowering technique was utilized adhering to the principles of ALARA. Comparison: 10/12/2017 Findings: The paranasal sinuses and mastoid air cells are clear. The Calvarium and Skull Base Are Intact. The Ventricles and Sulci Are within Normal Limits. There Is No Mass, Hematoma, Midline Shift, or Acute Infarct.S, the patient's ventriculoperitoneal shunt catheter appears to be aligned appropriately. No evidence for ventricular distention. 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 There is no evidence for acute intracranial hemorrhage. There is no evidence for hydrocephalus. Impression: 1. 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 2. No acute intracranial abnormality within limitations of patient motion. 3. Shunt catheter in stable position. The above report was generated using voice recognition software. It may contain grammatical, syntax or spelling errors. Electronically signed by: Werner Mcmahon M.D. 01/07/2018 12:09 PM Laboratory Results 01/07/18 11:30 Red Blood Count 4.20, Mean Corpuscular Volume 93.3, Mean Corpuscular Hemoglobin 29.3, Mean Corpuscular Hemoglobin Concent 31.4, Mean Platelet Volume 10.4, Neutrophils (%) (Auto) 66.6, Lymphocytes (%) (Auto) 19.7, Monocytes (%) (Auto) 9.0, Eosinophils (%) (Auto) 4.0, Basophils (%) (Auto) 0.5, Neutrophils # (Auto) 4.20, Lymphocytes # (Auto) 1.24, Monocytes # (Auto) 0.57, Eosinophils # (Auto) 0.25, Basophils # (Auto) 0.03 01/07/18 11:30 Test 01/07/18 11:30 White Blood Count 6.30 K/uL (4.8-10.8) Red Blood Count 4.20 M/uL (4.2-5.4) Hemoglobin 12.3 g/dL (12.0-16.0) Hematocrit 39.2 % (37-47) Mean Corpuscular Volume 93.3 fL (80-100) Mean Corpuscular Hemoglobin 29.3 pg (25-34) Mean Corpuscular Hemoglobin Concent 31.4 g/dl (32-36) Platelet Count 201 K/uL (130-400) Mean Platelet Volume 10.4 fL (7.4-10.4) Neutrophils (%) (Auto) 66.6 % Lymphocytes (%) (Auto) 19.7 % Monocytes (%) (Auto) 9.0 % Eosinophils (%) (Auto) 4.0 % Basophils (%) (Auto) 0.5 % Neutrophils # (Auto) 4.20 K/uL (1.4-6.5) Lymphocytes # (Auto) 1.24 K/uL (1.2-3.4) Monocytes # (Auto) 0.57 K/uL (0.11-0.59) Eosinophils # (Auto) 0.25 K/uL (0-0.5) Basophils # (Auto) 0.03 K/uL (0-0.2) RDW Standard Deviation 55.5 fL (36.4-46.3) RDW Coefficient of Variation 16.3 % (11.5-14.5) Immature Granulocyte % (Auto) 0.2 % Immature Granulocyte # (Auto) 0.01 K/uL (0.00-0.02) Anion Gap 6.0 mmol/L (3-11) Est Creatinine Clear Calc Drug Dose 112.9 ml/min Estimated GFR () 137.4 Estimated GFR (Non- 118.5 BUN/Creatinine Ratio 22.4 (10-20) Calcium Level 8.8 mg/dl (8.5-10.1) Medications Administered Medications (Trade) Dose Ordered Sig/Brenna Route Start Time Stop Time Status Last Admin Dose Admin Sodium Chloride 1,000 ml @ 999 mls/hr Q1H1M STAT IV 01/07/18 11:15 01/07/18 12:15 DC 01/07/18 11:36 999 MLS/HR Diphenhydramine HCl (Benadryl Inj) 50 mg NOW STAT IV 01/07/18 11:15 01/07/18 11:19 DC 01/07/18 11:36 50 MG Dexamethasone Sodium Phosphate (Dexamethasone Inj Pf) 10 mg NOW ONCE IV 01/07/18 11:15 01/07/18 11:19 DC 01/07/18 11:36 10 MG Ketorolac Tromethamine (Toradol Inj) 30 mg NOW STAT IV 01/07/18 11:15 01/07/18 11:19 DC 01/07/18 11:36 30 MG Ondansetron HCl (Zofran Inj) 4 mg NOW STAT IV 01/07/18 11:15 01/07/18 11:19 DC 01/07/18 11:36 4 MG ED Course The patient was evaluated. Patient's EMR medication list were reviewed. IV access was obtained. The patient was given 1 L of normal saline wide open. She was given Benadryl 50 mg IV, Decadron 10 mg IV, Toradol 30 mg IV and Zofran 4 mg IV push for her headache and nausea. A CT of the head was ordered and interpreted by the radiologist as above. CBC differential and renal profile was also ordered. Labs are reviewed around her workable. The patient was reevaluated and stated that she still had a headache her blood pressure was too low to give her additional narcotics. The patient verbalized understanding was discharged home with her father driving. Medical Decision Differential diagnosis include hydrocephalus, subarachnoid hemorrhage, intracranial bleed, tension headache [place] Drug Monitoring Program Search Results: patient reviewed within database Medication Reconcilliation Current Medication List: was personally reviewed by me Blood Pressure Screening Patient's blood pressure: Normal blood pressure Impression Primary Impression: Headache Departure Information Dispostion Home / Self-Care Condition GOOD Referrals No Doctor, Assigned (PCP) Forms HOME CARE DOCUMENTATION FORM, IMPORTANT VISIT INFORMATION, WORK / SCHOOL INSTRUCTIONS Patient Instructions My [email or web address] Additional Instructions Do not take any additional oxycodone for an additional 4 hours. Tylenol as needed for headache. If symptoms persist, follow-up with your family doctor for reevaluation. Problem Qualifiers Primary Impression: Headache Headache type: unspecified Headache chronicity pattern: acute headache Intractability: not intractable Qualified Codes: R51 - Headache
== END 2018-01-07 12:57 | disposition home or self-care (01) ==
LOC: C.EDB 10:38 → C.EDC 12:57
DX: R51 Headache (principal); F41.9 Anxiety disorder, unspecified; J45.909 Unspecified asthma, uncomplicated; Z87.440 Personal history of urinary (tract) infections; K31.84 Gastroparesis; K21.9 Gastro-esophageal reflux disease without esophagitis; E03.9 Hypothyroidism, unspecified; Z86.14 Personal history of Methicillin resistant Staphylococcus aureus infection; Z86.711 Personal history of pulmonary embolism; F25.0 Schizoaffective disorder, bipolar type; Q05.9 Spina bifida, unspecified; Z89.511 Acquired absence of right leg below knee; Z89.512 Acquired absence of left leg below knee; Z80.9 Family history of malignant neoplasm, unspecified; Z83.3 Family history of diabetes mellitus; Z83.6 Family history of other diseases of the respiratory system; Z79.899 Other long term (current) drug therapy

== ENCOUNTER → 2018-01-08 | Outpatient (CLI) | payer BC, OTHER ==
[~2018-01-08] MED LIST changes: -ADVIN50/60 INH; +DIPH25CA5 PO; +VENL150C2 PO; -VENL150C71 PO
[2018-01-08 14:45] LABS: HEMATOCRIT 39.5 % (37-47); HEMOGLOBIN 11.9 g/dL (12.0-16.0); MEAN CELL VOLUME 95.6 fL (80-100); MEAN CORPUSCULAR HEMOGLOBIN 28.8 pg (25-34); MEAN CORPUSCULAR HGB CONC 30.1 g/dl (32-36); MEAN PLATELET VOLUME 11.2 fL (7.4-10.4); PLATELET COUNT 221 K/uL (130-400); RED CELL DISTRIBUTION WIDTH CV 16.6 % (11.5-14.5); RED CELL DISTRIBUTION WIDTH SD 57.8 fL (36.4-46.3); WHITE BLOOD COUNT 6.93 K/uL (4.8-10.8)
[2018-01-08 14:58] LABS: ALBUMIN 2.9 gm/dl (3.4-5.0); ALKALINE PHOSPHATASE 98 U/L (45-117); ALT/SGPT 21 U/L (12-78); AST/SGOT 7 U/L (15-37); BLOOD UREA NITROGEN 14 mg/dl (7-18); CALCIUM 8.3 mg/dl (8.5-10.1); CARBON DIOXIDE 22 mmol/L (21-32); CREATININE 0.66 mg/dl (0.60-1.20); GLUCOSE 119 mg/dl (70-99); POTASSIUM 3.4 mmol/L (3.5-5.1); SODIUM 141 mmol/L (136-145); TOTAL PROTEIN 7.5 gm/dl (6.4-8.2)
== END | disposition home or self-care (01) ==
LOC: C.LABSPEC 13:54
PROVIDERS: ATTEND Internal Medicine Infectious Disease
DX: L03.90 Cellulitis, unspecified (principal)

== ENCOUNTER 2018-01-11 16:29 | Emergency (ER) | payer BC, OTHER ==
[~2018-01-11 16:29] MED LIST changes: -DIPH25CA5 PO
[2018-01-11 16:47] VITALS: TEMP 36.5; Ht 119.4 cm
[2018-01-11] MEDS ORDERED: DEXAMETHASONE SOD INJ 4 MG/ML VIAL IV STA (17:20)
[2018-01-11] MEDS ORDERED: DiphenhydrAMINE HCL 50 MG/ML VIAL IV STA (17:20)
[2018-01-11] MEDS ORDERED: FAMOTIDINE 20MG/5ML IV PUSH IV STA (17:20)
[2018-01-11] MEDS ORDERED: DIPH25CA5 PO (17:34)
[2018-01-11] MEDS ORDERED: [UNRECOGNIZED DRUG - CODE] TOP (17:50)
[2018-01-11 17:54] VITALS: O2SAT 98
[2018-01-11 18:40] VITALS: BP 120/86; PULSE 73; O2SAT 98
--- NOTE | 2018-01-11 23:12 | EMERGENCY ROOM VISIT NOTE ---
History Report prepared by James: Huong Ac Under the Supervision of: Dr. Kaleb Bethea M.D. First contact with patient: 17:11 Chief Complaint: ALLERGIC REACTION Stated Complaint: ALLERGIC REACTION History of Present Illness The patient is a 32 year old female who presents to the Emergency Room with complaints of a worsening allergic reaction that onset today at 1400. Per mother , the patient was at a GI appointment when she first noticed the redness. She notes that the patient recently started taking a new medication and thinks that this might be an allergic reaction. The patient notes that her upper back, hands , and face are red. The patient notes that the areas started out as itchy and are now painful and burning. The patient complains of swelling in her cheeks, lips, and hands. She also complains of redness in her face, hands, upper back, and arms, as well as trouble breathing. The patient states that she has asthma. The patient denies taking any medications to reduce the redness or swelling. Source of History: patient Onset: Today at 1400 Position: lip, hand (bilateral) Quality: burning Timing: worsening Associated Symptoms: + SOB Note: The patient complains of swelling in her cheeks, lips, and hands. She also complains of redness in her face, hands, upper back, and arms. Review of Systems See HPI for pertinent positives and negatives. A total of ten systems were reviewed and were otherwise negative. 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 (16) Osteomyelitis (17) Pulmonary embolism (18) Schizoaffective disorder, bipolar type (19) Shunt placement with revision x8 (20) Spina bifida (21) UTI (urinary tract infection) Surgical Problems: (1) S/P BKA (below knee amputation) bilateral Family History Cancer Diabetes mellitus Lung disease Social History Smoking Status: Never Smoker Alcohol Use: none Drug Use: none Marital Status: single Housing Status: lives with family Occupation Status: disabled Current/Historical Medications Scheduled Benztropine Mesylate (Benztropine Mesylate), 1 MG PO BID Ceftaroline Fosamil (Teflaro), 600 MG IV Q12 Cholecalciferol (Vitamin D), 2,000 INTER.UNIT PO BID Cyanocobalamin (Vitamin B-12), 500 MCG PO QAM Docusate Sodium (Colace), 100 MG PO BID Famotidine (Pepcid), 40 MG PO HS Ferrous Sulfate (Ferrous Sulfate), 325 MG PO DAILY Gabapentin (Gabapentin), 300 MG PO BID Hydroxyzine HCl (Hydroxyzine Pamoate), 50 MG PO HS Hydroxyzine HCl (Hydroxyzine HCl), 25 MG PO QAM Hyoscyamine Sulfate (Levsin), 0.125 MG PO BID Levothyroxine Sodium (Levothyroxine Sodium), 88 MCG PO QAM Montelukast Sod (Montelukast Sodium), 10 MG PO HS Multivit/Min/Iron/Fol Ac/Pren ( Vitamin), 1 TAB PO NOON Naltrexone HCl-Bupropion HCl (Contrave 8-90 mg), 1 TAB PO BID Nystatin (Topical) (Nystop), 1 APPLN TOP UD Pantoprazole (Pantoprazole Sodium), 40 MG PO BID Probiotic Product (Probiotic), 1 CAP PO TID Risperidone (Risperdal), 2 MG PO QAM Risperidone (Risperdal), 4 MG PO HS Senna (Senokot), 8.6 MG PO BID Topiramate (Qudexy Xr), 100 MG PO BID Trazodone Hcl (Trazodone), 150 MG PO HS Venlafaxine Hcl (Effexor Xr), 150 MG PO QAM Wound Dressings (Hydrofera Blue Foam Dress), 1 PATCH TOP BID Scheduled PRN Albuterol Sulfate (Proair Respiclick), 2 PUFFS INH TID PRN for SOB/Wheezing Cetirizine (Zyrtec), 10 MG PO DAILY PRN for Antibiotics Diphenhydramine Hcl (Benadryl), 50 MG PO DAILY PRN for Allergic Reaction Levalbuterol (Levalbuterol HCl), 3 ML NEB Q4H PRN for Shortness of Breath Meclizine Hcl (Meclizine Hcl), 25 MG PO TID PRN for Dizziness or Vertigo Ondasetron Odt (Zofran Odt), 4 MG SL Q8 PRN for Nausea Oxycodone HCl (Oxycodone HCl), 10-20 MG PO Q8 PRN for Pain Polyethylene Glycol 3350 (Miralax), 17 GM PO q6-q8 PRN for Constipation Sucralfate (Carafate), 10 ML PO QID PRN for PRN Allergies Coded Allergies: Adhesives (Verified Allergy, Intermediate, TAPE- HIVES, 01/11/18) Ceftriaxone (Verified Allergy, Intermediate, rash, Has tolerated cefepime and Zerbaxa, 01/11/18) Chlorhexidine (Verified Allergy, Intermediate, RASH, 01/11/18) Ciprofloxacin (Verified Allergy, Intermediate, hives, 01/11/18) Imipenem (Verified Allergy, Intermediate, PT REPORTS ITCHING, 01/11/18) Latex (Verified Allergy, Intermediate, hives, 01/11/18) Levofloxacin (Verified Allergy, Intermediate, rash,HEARD VOICES, 01/11/18) Linezolid (Verified Allergy, Intermediate, rash, 01/11/18) Nitrofurantoin (Verified Allergy, Intermediate, rash and hives, 01/11/18) Piperacillin (Verified Allergy, Intermediate, SEVERE RASH, HIVES, 01/11/18) Tazobactam (Verified Allergy, Intermediate, SEVERE RASH, HIVES, 01/11/18) Vancomycin (Verified Allergy, Intermediate, rash, 01/11/18) Tobramycin (Verified Allergy, Mild, MILD RASH ON ARM, RED FACE, 01/11/18) IMPROVED AFTER BENADRYL, TAKING REST OF DOSE Amikacin (Verified Allergy, Unknown, PER DR ROBINS,RXN WAS TO ZOSYN NOT AMKrash;hives, 01/11/18) Sulfamethoxazole w/Trimethoprim (Verified Allergy, Unknown, Hives, 01/11/18) Can be pretreated with 10mg Zytrec 45 min prior to admin Buspirone (Verified Adverse Reaction, Severe, HALLUCINATIONS, 01/11/18) Physical Exam Vital Signs Date Time Temp Pulse Resp B/P (MAP) Pulse Ox O2 Delivery O2 Flow Rate FiO2 01/11/18 18:40 73 16 120/86 98 Room Air 01/11/18 17:54 98 Room Air 01/11/18 17:39 84 01/11/18 16:47 36.5 86 22 123/79 94 Room Air Physical Exam GENERAL: Awake, alert, well-appearing, in no distress HENT: Normocephalic, atraumatic. Oropharynx unremarkable. EYES: Normal conjunctiva. Sclera non-icteric. NECK: Supple. No nuchal rigidity. RESPIRATORY: Clear to auscultation. No wheezes. Normal respiratory effort. CARDIAC: Normal rate. Normal rhythm. Extremities warm and well perfused. GI: Soft, non-distended. No tenderness to palpation. No rebound or guarding. No masses. RECTAL: Deferred. MUSCULOSKELETAL: Atraumatic. Chest examination reveals no tenderness. There is no CVA tenderness to palpation. Right upper chest wall port. UPPER EXTREMITIES: Slight palm erythema. LOWER EXTREMITIES: Wound vac on right AKA. Intact left AKA. NEURO: Normal sensorium. No sensory or motor deficits noted. No facial droop. SKIN: Warm and dry. Macular, papular rash on chest, upper back, and shoulders. Medical Decision & Procedures Medications Administered Medications (Trade) Dose Ordered Sig/Brenna Route Start Time Stop Time Status Last Admin Dose Admin Diphenhydramine HCl (Benadryl Inj) 25 mg NOW STAT IV 01/11/18 17:20 01/11/18 17:22 DC 01/11/18 17:44 25 MG Dexamethasone Sodium Phosphate (Decadron Inj) 10 mg NOW STAT IV 01/11/18 17:20 01/11/18 17:22 DC 01/11/18 17:44 10 MG Famotidine (Pepcid 20mg Iv Push) 20 mg ONE STAT IV 01/11/18 17:20 01/11/18 17:22 DC 01/11/18 17:44 20 MG Heparin Sodium (Porcine) (Heparin 10 Unit/ ml 5 ml Flush) 5 ml STK-MED ONCE .ROUTE 01/11/18 18:02 01/11/18 18:03 DC 01/11/18 18:02 5 ML ED Course 1715: The patient was evaluated in room C12B. A complete history and physical exam was performed. 1720: Ordered Famotidine 20 mg IV, Decadron Inj 10 mg IV, Benadryl Ink 25 mg IV. 1756: I paged Infectious disease and did not hear back within an hour. 1801: Ordered Heparin Sodium (Porcine) 5 ml .route. 1853: I reevaluated the patient. Her rash is improving. Discussed results and discharge instructions: she verbalized understanding and agreement. The patient is ready for discharge. Medical Decision Differential diagnosis: Etiologies such as allergic reaction, anaphylaxis, urticaria, Tracy-Hugo syndrome, toxic epidermal necrolysis, erythema multiforme, cellulitis, as well as others were entertained. Patient presents several hours with onset of rash across her chest and upper shoulders and back with pruritic changes. Also states her hands feel more swollen and red in her face is more red. Denies significant changes shortness of breath. Denies throat closing sensation. No abdominal discomfort. Patient has history of multiple allergies and currently on long-term antibiotics secondary to wound infection of her amputated leg. Recently started 3 days ago on doxycycline. Did not take any medicine prior to arrival. Given steroids, Benadryl and Pepcid. Does not appear acutely septic or anaphylactic. Patient with multiple allergies and followed closely by infectious disease. Did place a call into infectious disease group to discuss options regarding antibiotic selection as this appears likely the doxycycline having a delayed reaction. After 1 hour we were unable to contact them. Symptoms improving for here on re- eval. Feel that as the patient is not grossly ill recommending that she follow- up with her regular infectious disease doctor for further antibiotic choice in the next several days and stop the doxycycline. Discussed return criteria feel she is stable for discharge. Recommend continued Benadryl for symptoms next 2- 3 days. Medication Reconcilliation Current Medication List: was personally reviewed by me Blood Pressure Screening Patient's blood pressure: Normal blood pressure Impression Primary Impression: Allergic reaction Scribe Attestation The scribe's documentation has been prepared under my direction and personally reviewed by me in its entirety. I confirm that the note above accurately reflects all work, treatment, procedures, and medical decision making performed by me. Departure Information Dispostion Home / Self-Care Forms HOME CARE DOCUMENTATION FORM, IMPORTANT VISIT INFORMATION Patient Instructions My [facility] Additional Instructions Please stop using her doxycycline at this time. Please call and follow closely with your infectious disease group over the next 1-2 days. Utilize Benadryl to assist with any pruritus and rash symptoms. Pleas avoid itching your rash as able. If you experience significant worsening of your shortness of breath difficulty breathing or throat closing symptoms please feel free to return here at any time. Problem Qualifiers Primary Impression: Allergic reaction Encounter type: initial encounter Qualified Codes: T78.40XA - Allergy, unspecified, initial encounter
== END 2018-01-11 19:08 | disposition home or self-care (01) ==
LOC: C.EDB 16:30 → C.EDC 19:08
DX: T78.40XA Allergy, unspecified, initial encounter (principal); J45.909 Unspecified asthma, uncomplicated; F41.9 Anxiety disorder, unspecified; E03.9 Hypothyroidism, unspecified; F25.0 Schizoaffective disorder, bipolar type; Q05.4 Unspecified spina bifida with hydrocephalus; Z98.2 Presence of cerebrospinal fluid drainage device; Z86.711 Personal history of pulmonary embolism; Z89.511 Acquired absence of right leg below knee; Z89.512 Acquired absence of left leg below knee; Z79.899 Other long term (current) drug therapy; Z91.048 Other nonmedicinal substance allergy status; Z88.1 Allergy status to other antibiotic agents; Z91.040 Latex allergy status; Z88.2 Allergy status to sulfonamides; Z88.8 Allergy status to other drugs, medicaments and biological substances

== ENCOUNTER 2018-01-29 13:24 | Emergency (ER) | payer BC, OTHER ==
[~2018-01-29 13:24] MED LIST changes: -ATR25 PO; -CEFT600I IV; +DIPH25CA5 PO; -DOCU-94 PO; -MENTPOW4 TOP; +METO-157 PO; +MGRIN; -OXYC-609 PO; -POTA-639 PO; -SENN-61 PO; -VST25HP PO; +ZOLM1TAB3 PO; +[UNRECOGNIZED DRUG - CODE]; +[UNRECOGNIZED DRUG - CODE] PO; -[UNRECOGNIZED DRUG - CODE] TOP
[2018-01-29 13:27] VITALS: TEMP 37
[2018-01-29] MEDS ORDERED: MXT150 PO (13:59)
[2018-01-29] MEDS ORDERED: NALT1TAB14 PO (13:59)
[2018-01-29] MEDS ORDERED: DIHY1INJ2 INJ (13:59)
[2018-01-29] MEDS ORDERED: [UNRECOGNIZED DRUG - CODE] IV (13:59)
[2018-01-29] MEDS ORDERED: DAPTOmycin IV 600 MG in SYRINGE 0 ML IV ONE (14:15)
--- NOTE | 2018-01-29 14:49 | EMERGENCY ROOM VISIT NOTE ---
History Report prepared by James: Miah Boswell Under the Supervision of: Dr. Himanshu Lyman D.O. First contact with patient: 13:39 Chief Complaint: WOUND INFECTION Stated Complaint: SWOLLEN, INFECTED RIGHT FOOT History of Present Illness The patient is a 32 year old female who presents to the Emergency Room with complaints of a constant wound infection beginning a few days ago. The patient states that her right leg is amputated below the knee. She notes that she has a wound on the end of her limp that is becoming deeper very quickly. She reports that the redness on her leg is becoming redder, which she attributes to her tape sensitivity. The patient states that her wound is draining, but she notes that she has a wound vac attached to the wound site. She also complains of a worsening rash on her chest. She reports that she had MRSA two weeks ago and she states that she is currently on Zerbaxa for a UTI. She notes that she is on day eight of fourteen of her antibiotics. Source of History: patient Onset: a few days ago Position: leg (right) Quality: other (infection) Timing: constant Associated Symptoms: + rash Note: The patient states that the wound on her leg is getting deeper. She notes that her leg is becoming more red and she reports that her wound is draining. Review of Systems See HPI for pertinent positives & negatives. A total of 10 systems reviewed and were otherwise negative. 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 (16) Osteomyelitis (17) Pulmonary embolism (18) Schizoaffective disorder, bipolar type (19) Shunt placement with revision x8 (20) Spina bifida (21) UTI (urinary tract infection) Surgical Problems: (1) S/P BKA (below knee amputation) bilateral Family History Cancer Diabetes mellitus Lung disease Social History Smoking Status: Never Smoker Alcohol Use: none Drug Use: none Marital Status: single Housing Status: lives with family Occupation Status: disabled Current/Historical Medications Scheduled Benztropine Mesylate (Benztropine Mesylate), 1 MG PO BID Ceftolozane Sulfate-Tazobactam (Zerbaxa 1-0.5 gm), 1.5 GM IV Q8 Cholecalciferol (Vitamin D), 2,000 INTER.UNIT PO BID Cyanocobalamin (Vitamin B-12), 500 MCG PO QAM Dihydroergotamine Mesylate (Migranal), 4 MG NA 2XWK Dihydroergotamine Mesylate (Dihydroergotamine Mesylat), 1 MG INJ BID Famotidine (Pepcid), 40 MG PO HS Ferrous Sulfate (Ferrous Sulfate), 325 MG PO DAILY Gabapentin (Gabapentin), 300 MG PO BID Hyoscyamine Sulfate (Levsin), 0.125 MG PO BID Ketamine HCl-Sodium Chloride (Ketamine HCl 100-0.9 mg/10Ml-%), 1 NA max 20 per day Levothyroxine Sodium (Levothyroxine Sodium), 88 MCG PO QAM Mexiletine Hcl (Mexiletine Hcl), 150 MG PO TID Montelukast Sod (Montelukast Sodium), 10 MG PO HS Multivit/Min/Iron/Fol Ac/Pren ( Vitamin), 1 TAB PO NOON Naltrexone HCl-Bupropion HCl (Contrave 8-90 mg), 2 TAB PO QAM Naltrexone HCl-Bupropion HCl (Contrave 8-90 mg), 1 TAB PO HS Nystatin (Topical) (Nystop), 1 APPLN TOP UD Pantoprazole (Pantoprazole Sodium), 40 MG PO BID Polyethylene Glycol 3350 (Miralax), 17 GM PO TID Probiotic Product (Probiotic), 1 CAP PO TID Risperidone (Risperdal), 2 MG PO BID Topiramate (Qudexy Xr), 100 MG PO BID Trazodone Hcl (Trazodone), 150 MG PO HS Venlafaxine Hcl (Effexor Xr), 150 MG PO QAM Scheduled PRN Albuterol Sulfate (Proair Respiclick), 2 PUFFS INH TID PRN for SOB/Wheezing Cetirizine (Zyrtec), 10 MG PO DAILY PRN for Antibiotics Diphenhydramine Hcl (Benadryl), 50 MG PO DAILY PRN for Allergic Reaction Levalbuterol (Levalbuterol HCl), 3 ML NEB Q4H PRN for Shortness of Breath Meclizine Hcl (Meclizine Hcl), 25 MG PO TID PRN for Dizziness or Vertigo Metoclopramide (Reglan), 10 MG PO BID PRN for Migraine Ondasetron Odt (Zofran Odt), 4 MG SL Q8 PRN for Nausea Sucralfate (Carafate), 10 ML PO QID PRN for PRN Zolmitriptan (Zomig), 5 MG PO 3XWK PRN for Migraine Allergies Coded Allergies: Adhesives (Verified Allergy, Intermediate, TAPE- HIVES, 01/29/18) Ceftriaxone (Verified Allergy, Intermediate, rash, Has tolerated cefepime and Zerbaxa, 01/29/18) Chlorhexidine (Verified Allergy, Intermediate, RASH, 01/29/18) Ciprofloxacin (Verified Allergy, Intermediate, hives, 01/29/18) Imipenem (Verified Allergy, Intermediate, PT REPORTS ITCHING, 01/29/18) Latex (Verified Allergy, Intermediate, hives, 01/29/18) Levofloxacin (Verified Allergy, Intermediate, rash,HEARD VOICES, 01/29/18) Linezolid (Verified Allergy, Intermediate, rash, 01/29/18) Nitrofurantoin (Verified Allergy, Intermediate, rash and hives, 01/29/18) Piperacillin (Verified Allergy, Intermediate, SEVERE RASH, HIVES, 01/29/18) Tazobactam (Verified Allergy, Intermediate, SEVERE RASH, HIVES, 01/29/18) Vancomycin (Verified Allergy, Intermediate, rash, 01/29/18) Tobramycin (Verified Allergy, Mild, MILD RASH ON ARM, RED FACE, 01/29/18) IMPROVED AFTER BENADRYL, TAKING REST OF DOSE Amikacin (Verified Allergy, Unknown, PER DR ROBINS,RXN WAS TO ZOSYN NOT AMKrash;hives, 01/29/18) Sulfamethoxazole w/Trimethoprim (Verified Allergy, Unknown, Hives, 01/29/18 ) Can be pretreated with 10mg Zytrec 45 min prior to admin Buspirone (Verified Adverse Reaction, Severe, HALLUCINATIONS, 01/29/18) Physical Exam Vital Signs Date Time Temp Pulse Resp B/P (MAP) Pulse Ox O2 Delivery O2 Flow Rate FiO2 01/29/18 13:27 37.0 93 18 120/81 96 Room Air Physical Exam CONSTITUTIONAL/VITAL SIGNS: Reviewed / noted above. GENERAL: Non-toxic in appearance. INTEGUMENTARY: Warm, dry, and [place]. HEAD: Normocephalic. EYES: without scleral icterus or trauma. ENT/OROPHARYNX: clear and moist. LYMPHADENOPATHY/NECK: Is supple without lymphadenopathy or meningismus. RESPIRATORY: Lungs clear and equal. CARDIOVASCULAR: Regular rate and rhythm. GI/ABDOMEN: Soft and nontender. No organomegaly or pulsatile mass. No rebound or guarding. Normal bowel sounds. EXTREMITIES: Well perfused. Erythema noted to distal right stump surrounding the wound vac, warmth to area, small amount of discharge noted under dressing. BACK: No CVA tenderness. NEUROLOGICAL: Intact without focal deficits. PSYCHIATRIC: normal affect. MUSCULOSKELETAL: Normally developed with good muscle tone. Medical Decision & Procedures Medications Administered Medications (Trade) Dose Ordered Sig/Brenna Route Start Time Stop Time Status Last Admin Dose Admin Daptomycin 600 mg/ Syringe 12 ml @ 6 mls/min NOW ONCE IV 01/29/18 14:15 01/29/18 14:16 DC 01/29/18 14:26 6 MLS/MIN Heparin Sodium (Porcine) (Heparin 100 Unit/ml 5ml Flush) 5 ml STK-MED ONCE .ROUTE 01/29/18 14:10 01/29/18 14:11 DC 01/29/18 14:10 5 ML ED Course 1340: Previous medical records were reviewed. The patient was evaluated in room B5. A complete history and physical examination was performed. 1410: Heparin Sodium (Porcine) 5ml IV 1355: I discussed the patient's case with Dr. Sauceda - Infectious Diseases, [facility] [place] 1415: Daptomycin 600 mg/Syringe 12 ml @ 6 mls/min Protocol IV 1440: On reevaluation, the patient is stable. I discussed the results and findings with the patient. She verbalized agreement of the treatment plan. The patient was discharged home. Medical Decision Differential diagnosis: Etiologies such as cellulitis, abscess, MRSA infection, DVT, necrotizing fasciitis, dermatitis, drug eruption, as well as others were entertained. This is a 32-year-old female who presents to the ED with a chief complaint of concerns for recurrent infection of the right leg stump. The patient has a wound VAC in place at this time. It has been change this morning. According to the mother, the depth of the wound was 5 mm deeper than previously measured. The mother also reports that the patient has developed redness in and around the wound that was not present earlier today. There is also some discharge from the wound which is continuing to be present from previous. The patient's exam reveals erythema to the right lateral stump surrounding the wound VAC. This is approximately the size of an adult hand. There is some increased warmth in the area. After evaluating the patient and talking with Dr. Sauceda, he recommended the patient be started on daptomycin. She does have follow-up in 2 days with wound care clinic. She was given a dose of IV daptomycin here and arrangements were made for the patient to receive IV daptomycin at home. She was felt to be stable for discharge. Medication Reconcilliation Current Medication List: was personally reviewed by me Blood Pressure Screening Patient's blood pressure: Normal blood pressure Blood pressure disposition: Did not require urgent referral Consults Time Called: 1351 Consulting Physician: Dr. Sauceda - Infectious Diseases, [facility] [place] Returned Call: [phone] I discussed the patient's case with Dr. Sauceda. Impression Primary Impression: Cellulitis of leg without foot, right Scribe Attestation The scribe's documentation has been prepared under my direction and personally reviewed by me in its entirety. I confirm that the note above accurately reflects all work, treatment, procedures, and medical decision making performed by me. Departure Information Dispostion Home / Self-Care Referrals No Doctor, Assigned (PCP) Forms HOME CARE DOCUMENTATION FORM, IMPORTANT VISIT INFORMATION, WORK / SCHOOL INSTRUCTIONS Patient Instructions My [facility] Additional Instructions Daptomycin should be delivered to your home tomorrow. Follow-up with wound care clinic on Monday as scheduled. Contact Dr. Sauceda for any additional advice or concerns.
[2018-01-29 14:59] VITALS: BP 140/90; PULSE 91; O2SAT 97
[2018-01-31] MEDS ORDERED: DAPT500I IV (13:59)
== END 2018-01-29 15:00 | disposition home or self-care (01) ==
LOC: C.EDB 13:26
DX: T87.43 Infection of amputation stump, right lower extremity (principal); Y83.5 Amputation of limb(s) as the cause of abnormal reaction of the patient, or of later complication, without mention of misadventure at the time of the procedure; Z89.511 Acquired absence of right leg below knee; Z86.14 Personal history of Methicillin resistant Staphylococcus aureus infection; N39.0 Urinary tract infection, site not specified; F41.9 Anxiety disorder, unspecified; J45.909 Unspecified asthma, uncomplicated; K31.84 Gastroparesis; K21.9 Gastro-esophageal reflux disease without esophagitis; E03.9 Hypothyroidism, unspecified; Z86.711 Personal history of pulmonary embolism; F25.0 Schizoaffective disorder, bipolar type; Q05.9 Spina bifida, unspecified; Z98.2 Presence of cerebrospinal fluid drainage device; Z89.512 Acquired absence of left leg below knee; Z88.1 Allergy status to other antibiotic agents; Z88.2 Allergy status to sulfonamides; Z88.3 Allergy status to other anti-infective agents; Z88.8 Allergy status to other drugs, medicaments and biological substances; Z91.048 Other nonmedicinal substance allergy status; Z79.899 Other long term (current) drug therapy; Z91.040 Latex allergy status; Z88.0 Allergy status to penicillin; Z80.9 Family history of malignant neoplasm, unspecified; Z83.3 Family history of diabetes mellitus; Z83.6 Family history of other diseases of the respiratory system

== ENCOUNTER 2018-10-13 16:51 | Observation (INO) ==
[2018-10-13] MEDS ORDERED: SODIUM CHLORIDE 0.9% 1000ML 1,000 ML IV SCH (17:15)
[2018-10-13] MEDS ORDERED: DAPTOmycin 375 MG in SYRINGE 0 ML IV ONE (17:30)
[2018-10-13 17:53] LABS: Basophils # (auto) 0.04 K/uL (0-0.2); Basophils % (auto) 0.7 %; Eosinophils # (auto) 0.17 K/uL (0-0.5); Eosinophils % (auto) 2.8 %; Hematocrit (blood only) 43.4 % (37-47); Hemoglobin 14.2 g/dL (12.0-16.0); Immature Granulocytes # (auto) 0.01 K/uL (0.00-0.02); Immature Granulocytes % (auto) 0.2 %; Lymphocytes # (auto) 1.93 K/uL (1.2-3.4); Lymphocytes % (auto) 32.3 %; Mean Corpuscular Hgb Conc 32.7 g/dL (32-36); Mean Corpuscular Volume 97.1 fL (80-100); Mean Platelet Volume 10.6 fL (7.4-10.4); Monocytes # (auto) 0.63 K/uL (0.11-0.59); Monocytes % (auto) 10.6 %; Neutrophils # (auto) 3.19 K/uL (1.4-6.5); Neutrophils % (auto) 53.4 %; Platelet Count 245 K/uL (130-400); RDW Coefficient of Variation 15.7 % (11.5-14.5); RDW Standard Deviation 55.6 fL (36.4-46.3); Red Blood Count 4.47 M/uL (4.2-5.4); White Blood Count 5.97 K/uL (4.8-10.8)
[2018-10-13 18:13] LABS: Alanine Aminotransferase 73 U/L (12-78); Albumin Level 3.2 gm/dl (3.4-5.0); Aspartate Aminotransferase 42 U/L (15-37); BUN Creatinine Ratio 13.1 (10-20); Blood Urea Nitrogen 9 mg/dl (7-18); Carbon Dioxide 24 mmol/L (21-32); Chloride 108 mmol/L (98-107); Est GFR (African American) 135.1; Est GFR (Non-African American) 116.6; Glucose 95 mg/dl (70-99); Potassium 3.5 mmol/L (3.5-5.1); Sodium 140 mmol/L (136-145)
[2018-10-13 18:16] LABS: Albumin Globulin Ratio 0.8 (0.9-2); Alkaline Phosphatase 94 U/L (45-117); Bilirubin,Total 0.3 mg/dl (0.2-1); Globulin 4.1 gm/dl (2.5-4.0); Total Protein 7.3 gm/dl (6.4-8.2)
--- NOTE | 2018-10-13 18:53 | History & Physical Report ---
Date of Service October 13, 2018 Assessment & Plan (1) UTI (urinary tract infection) due to urinary indwelling catheter: The patient will receive intravenous daptomycin today and tomorrow and then be set up for outpatient antibiotic therapy starting on Monday Present on Admission?: Yes (2) Volume depletion: IV fluids. Monitor intake and output Present on Admission?: Yes (3) MRSA infection: Daptomycin therapy Present on Admission?: Yes (4) Spina bifida: Provide supportive care Present on Admission?: Yes (5) Morbid obesity: BMI greater than 40 Present on Admission?: Yes History of Present Illness Chief Complaint: MRSA UTI secondary to chronic suprapubic catheter. Patient allergic to multiple p.o. antibiotics. Primary Care Provider: Gela Boone MD 33-year-old female with a history of spina bifida and neurogenic bladder with a chronic suprapubic catheter in place. She has chronic UTIs. Most recent culture grew MRSA. She is allergic to multiple antibiotics and needs IV antibiotic therapy. She will be placed on observation over the weekend for daily dosing of daptomycin which then can be administered as an outpatient starting on Monday. The patient feels as if she is mildly volume depleted due to poor oral intake over the past several days. She is hemodynamically stable and alert. She is not septic Allergies Allergy/AdvReac Type Severity Reaction Status Date / Time chlorhexidine Allergy Severe Rash Verified 10/13/18 18:14 adhesive Allergy Intermediate TAPE- HIVES Verified 10/13/18 18:14 ceftriaxone Allergy Intermediate rash, Has Verified 10/13/18 18:14 tolerated cefepime and Zerbaxa Cipro Allergy Intermediate hives Verified 01/11/18 17:31 ciprofloxacin Allergy Intermediate hives Verified 10/13/18 18:14 imipenem Allergy Intermediate PT REPORTS Verified 10/13/18 18:14 ITCHING latex Allergy Intermediate hives Verified 10/13/18 18:14 levofloxacin Allergy Intermediate rash,HEARD Verified 10/13/18 18:14 VOICES linezolid Allergy Intermediate rash Verified 10/13/18 18:14 morphine Allergy Intermediate Rash Verified 10/13/18 18:14 nitrofurantoin Allergy Intermediate rash and Verified 10/13/18 18:14 hives piperacillin Allergy Intermediate SEVERE Verified 10/13/18 18:14 RASH, HIVES tazobactam Allergy Intermediate SEVERE Verified 10/13/18 18:14 RASH, HIVES trimethoprim Allergy Intermediate Hives Verified 10/13/18 18:14 vancomycin Allergy Intermediate rash Verified 10/13/18 18:14 amikacin Allergy Unknown PER Verified 10/13/18 18:14 ROBINS,RXN WAS TO ZOSYN NOT AMKrash;hives Bactrim Allergy Unknown Hives Verified 01/11/18 17:31 sulfamethoxazole Allergy Unknown Hives Verified 10/13/18 18:14 dextrose 5 % in water Allergy Hives Verified 10/13/18 18:14 [From Zyvox] buspirone AdvReac Severe HALLUCINATI Verified 10/13/18 18:14 ONS Home Medications Home Medications Medication Instructions Recorded Confirmed Type Multi 1 tab PO DAILY 02/17/18 10/11/18 History Probiotic 1 cap PO TID 02/17/18 10/11/18 History albuterol sulfate [ProAir HFA] 2 puff INHALATION DAILY PRN 02/17/18 10/13/18 History cyanocobalamin (vitamin B-12) 500 mcg PO QAM 02/17/18 10/13/18 History dihydroergotamine [D.H.E.45] 1 mg IM UD PRN 02/17/18 10/13/18 History famotidine 40 mg PO HS 02/17/18 10/13/18 History furosemide 20 tab PO BID PRN 02/17/18 10/13/18 History hyoscyamine sulfate [Levsin] 0.125 mg PO TIDM 02/17/18 10/13/18 History ketamine 1 - 2 spray INTRANASAL DIRECTED 02/17/18 10/13/18 History PRN MDD 20 levothyroxine 88 mcg PO DAILYBB 02/17/18 10/13/18 History metoclopramide HCl [Reglan] 10 mg PO BID 02/17/18 10/11/18 History mexiletine 300 mg PO TID 02/17/18 10/11/18 History montelukast 10 mg PO DAILY 02/17/18 10/11/18 History ondansetron 4 mg PO Q6 PRN 02/17/18 10/11/18 History pantoprazole 40 mg PO BID 02/17/18 10/11/18 History polyethylene glycol 3350 17 g PO TID 02/17/18 10/11/18 History trazodone 150 mg PO HS 02/17/18 10/11/18 History venlafaxine 150 mg PO QAM 02/17/18 10/11/18 History Botox 1 dose IM Q90D 04/20/18 10/13/18 History haloperidol 2 mg PO Q12 PRN 07/11/18 10/13/18 History topiramate [Qudexy XR] 200 mg PO DIRECTED 07/11/18 10/11/18 History metformin 500 mg PO QPM 08/24/18 10/13/18 History cetirizine [Zyrtec] 10 mg PO DAILY PRN 08/28/18 10/13/18 History nystatin 1 appln TOP BID #15 gm 09/26/18 10/11/18 Rx chromium picolinate 200 mcg tablet 200 mcg PO TID tab 10/05/18 10/13/18 History potassium chloride ER 20 mEq 20 meq PO UD PRN 10/05/18 10/11/18 History tablet,extended release(part/cryst) benztropine 1 mg IM BID 10/11/18 10/13/18 History brexpiprazole [Rexulti] 2 mg PO QAM 10/11/18 10/13/18 History bupropion HCl 100 mg PO QAM 10/11/18 10/13/18 History fluconazole 100 mg PO PM 10/11/18 10/13/18 History fluticasone propion-salmeterol 1 inh INHALATION BID 10/11/18 10/13/18 History [Advair Diskus] levalbuterol HCl [Xopenex] 0.63 mg INHALATION TID PRN 10/11/18 10/13/18 History lubiprostone [Amitiza] 24 mcg PO BID 10/11/18 10/13/18 History Past Med/Surg History Social History Preferred Language: Yi Communication Ability: Effective Visual Impairment: No Limitations Hearing Ability: Normal Beliefs That Will Affect Care: Yarsani Yarsani Beliefs: Alevism marital status: Single Current Living Situation: Family current occupational status: disabled Feels Safe at Home: Yes Smoking Status: Never smoker Second Hand Exposure: No Hx Alcohol Use: No Hx Substance Use: No Review of Systems 2 Review of Systems: All systems reviewed & are unremarkable except as noted in HPI & below Physical Exam Constitutional: + morbidly obese; not ill appearing and no altered mental status Eyes: PERRL, conjunctivae normal, anicteric sclerae ENMT: external ear and nose normal, oropharynx normal Neck: trachea midline, no thyromegaly Respiratory: normal respiratory effort, lungs clear to auscultation Cardiovascular: RRR, no murmur, no edema Gastrointestinal (Abdomen): normal bowel sounds, soft, nontender, no hepatosplenomegaly Musculoskeletal: Status post bilateral BKA Skin: no rashes, warm and dry Neurologic: CN's II-XI intact bilaterally and moves all extremities; no focal motor deficits Results & Data Vital Signs (Past 12 Hours) Vital Signs Temp Pulse Resp BP Pulse Ox 10/13/18 16:53 36.8 C 111 H 18 145/101 H 94 Laboratory Results 10/13/18 17:40 10/13/18 17:40
[2018-10-13] MEDS ORDERED: HALOPERIDOL 1 MG TAB PO PRN (19:54)
[2018-10-13] MEDS ORDERED: ACETAMINOPHEN 325 MG TAB PO PRN (19:54)
[2018-10-13] MEDS ORDERED: LEVALBUTEROL HCL 0.63 MG/3 ML NEB INH PRN (19:54)
[2018-10-13] MEDS ORDERED: POLYETHYLENE (MIRALAX) 17 GM PACK PO PRN (19:54)
[2018-10-13] MEDS ORDERED: FUROSEMIDE 20 MG TAB PO PRN (19:54)
[2018-10-13] MEDS ORDERED: CETIRIZINE HCL 10 MG TABLET PO PRN (19:54)
[2018-10-13] MEDS: SODIUM CHLORIDE 0.9% 1000ML 1,000 ML IV SCH (20:00)
[2018-10-13] MEDS ORDERED: NON-FORMULARY MEDICATION (Chromium Picolinate 200 MCG) PO SCH (21:00)
[2018-10-13] MEDS ORDERED: METOCLOPRAMIDE HCL 10 MG TABLET PO PRN (21:00)
[2018-10-13 21:17] LABS: INR 1.2 (0.9-1.1); Partial Thromboplastin Time 27.6 Seconds (21.0-31.0); Prothrombin Time 11.9 Seconds (9.0-12.0)
[2018-10-13] MEDS ORDERED: ALBUTEROL HFA 8 GM INHALER INH PRN (21:45)
[2018-10-13] MEDS: ONDANSETRON INJ 2 MG/ML 2 ML VIAL IV PRN (21:47)
[2018-10-13] MEDS: OXYCODONE HCL IR 5 MG TAB (IMMEDIATE RELEASE) PO PRN (21:47)
[2018-10-13] MEDS: FLUTICASONE/SALMETEROL (ADVAIR) 500/50 INH 14 PUFF INH SCH (21:51)
[2018-10-13] MEDS: PANTOprazole 40 MG TAB PO SCH (21:52)
[2018-10-13] MEDS: TRAZODONE HCL 50 MG TAB PO SCH (21:52)
[2018-10-13] MEDS: LUBIPROSTONE 8 MCG CAP PO SCH (21:53)
[2018-10-13] MEDS: FAMOTIDINE 20 MG TAB PO SCH (21:53)
[2018-10-13] MEDS: ENOXAPARIN INJ 40 MG/0.4 ML SYR SQ SCH (22:06)
[2018-10-14] MEDS: OXYCODONE HCL IR 5 MG TAB (IMMEDIATE RELEASE) PO PRN ×2 (02:22→21:40)
[2018-10-14] MEDS: ONDANSETRON INJ 2 MG/ML 2 ML VIAL IV PRN ×2 (03:30→09:33)
[2018-10-14] MEDS: SODIUM CHLORIDE 0.9% 1000ML 1,000 ML IV SCH ×2 (04:29→16:52)
[2018-10-14 06:37] LABS: Basophils # (auto) 0.03 K/uL (0-0.2); Basophils % (auto) 0.6 %; Eosinophils # (auto) 0.23 K/uL (0-0.5); Eosinophils % (auto) 4.3 %; Hematocrit (blood only) 39.5 % (37-47); Hemoglobin 12.6 g/dL (12.0-16.0); Immature Granulocytes # (auto) 0.02 K/uL (0.00-0.02); Immature Granulocytes % (auto) 0.4 %; Lymphocytes # (auto) 1.89 K/uL (1.2-3.4); Mean Corpuscular Hgb Conc 31.9 g/dL (32-36); Mean Corpuscular Volume 98.5 fL (80-100); Mean Platelet Volume 11.1 fL (7.4-10.4); Monocytes # (auto) 0.66 K/uL (0.11-0.59); Monocytes % (auto) 12.2 %; Neutrophils # (auto) 2.57 K/uL (1.4-6.5); Neutrophils % (auto) 47.5 %; Platelet Count 222 K/uL (130-400); RDW Coefficient of Variation 15.9 % (11.5-14.5); RDW Standard Deviation 57.7 fL (36.4-46.3); Red Blood Count 4.01 M/uL (4.2-5.4)
[2018-10-14 07:10] LABS: BUN Creatinine Ratio 14.6 (10-20); Calcium 8.5 mg/dl (8.5-10.1); Est GFR (African American) 135.1; Est GFR (Non-African American) 116.6; Potassium 3.1 mmol/L (3.5-5.1)
[2018-10-14] MEDS: LEVOTHYROXINE SODIUM 88 MCG TABLET PO SCH (07:16)
[2018-10-14] MEDS: buPROPion HCl 100 MG TABLET PO SCH (07:57)
[2018-10-14] MEDS: PRENATAL VITAMIN 1 TAB PO SCH (07:58)
[2018-10-14] MEDS: LACTOBACILLUS ACIDOPHILUS (FLORANEX) TAB PO SCH ×3 (07:58→20:34)
[2018-10-14] MEDS: VENLAFAXINE HCL XR 150 MG CAPXR PO SCH (08:04)
[2018-10-14] MEDS: FLUTICASONE/SALMETEROL (ADVAIR) 500/50 INH 14 PUFF INH SCH ×2 (08:04→20:39)
[2018-10-14] MEDS: FLUCONAZOLE 100 MG TAB PO SCH (08:04)
[2018-10-14] MEDS: PANTOprazole 40 MG TAB PO SCH ×2 (08:04→20:35)
[2018-10-14] MEDS: CYANOCOBALAMIN 500 MCG TABLET (VITAMIN B-12) PO SCH (08:05)
[2018-10-14] MEDS: QUDEXY PO SCH (08:08)
[2018-10-14] MEDS: MEXILETINE HCL PO SCH ×3 (08:08→16:56)
[2018-10-14] MEDS: LUBIPROSTONE 8 MCG CAP PO SCH ×2 (08:09→20:32)
[2018-10-14] MEDS ORDERED: REXULTI PO SCH (09:00)
[2018-10-14] MEDS: POTASSIUM CHLORIDE 20 MEQ TABCR PO SCH ×3 (11:53→20:43)
[2018-10-14] MEDS ORDERED: MICONAZOLE NITRATE POWDER 43 GM ONE (13:48)
[2018-10-14] MEDS ORDERED: NURSING DECISION MEDICATION ONE (14:01)
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
[2018-10-14] MEDS ORDERED: MICONAZOLE NITRATE POWDER 43 GM EXT PRN (14:10)
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
[2018-10-14] MEDS ORDERED: MONTELUKAST SODIUM 10 MG TABLET PO SCH (16:30)
[2018-10-14] MEDS ORDERED: METFORMIN HCL 500 MG TAB PO SCH (16:30)
[2018-10-14] MEDS ORDERED: DAPTOmycin 375 MG in SYRINGE 0 ML IV SCH (17:00)
[2018-10-14] MEDS: HEPARIN 100 UNIT/ML 5ML FLUSH FLUSH PRN (17:57)
--- NOTE | 2018-10-14 19:32 | Hospitalist Progress Note ---
Date of Service October 14, 2018 Assessment & Plan (1) UTI (urinary tract infection) due to urinary indwelling catheter: Complicated/catheter associated. 2nd to MRSA. day #2 of IV daptomycin. consult social work on Monday to arrange home IV dapto to complete her course. plan 7 days in total. Present on Admission?: Yes (2) Abdominal pain, chronic, right upper quadrant: 5 CTs since May 2019 each only showing constipation upper GI series (normal) abdominal u/s (normal) numerous x-rays (constipation) EGD - 2016 - gastritis only prior gastric emptying study - mildly abnormal, already has dx of gastroparesis recommend outpatient MRCP - this would have to be arranged for [facility] follows with Dr Aceves continue constipation regimen Present on Admission?: Yes (3) Constipation: cont bowel regimen Present on Admission?: Yes (4) Chronic suprapubic catheter: mother flushes this at home need to check with mother to see when catheter was last changed Present on Admission?: Yes (5) S/P bilateral BKA (below knee amputation): (6) Spina bifida: with resulting acquired paraplegic status and numerous skin complications from such Present on Admission?: Yes (7) Morbid obesity: BMI 78 Present on Admission?: Yes (8) Asthma: no issues no flare at this time cont advair BID Present on Admission?: No (9) GERD (gastroesophageal reflux disease): cont PPI Present on Admission?: Yes (10) 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 PC 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: no issues Present on Admission?: No (11) Hypothyroid: TSH 04/2018 wnl cont synthroid Present on Admission?: Yes (12) Schizoaffective disorder, bipolar type: seen by psych as pt was telling staff she was feeling unsafe this am placed briefly on 1:1 she denied any suicidal or homicidal ideation psych confirms she was recently weaned off her antipsychotics since she is not reporting any psychotic symptoms she will remain off those meds all other meds to be continued Present on Admission?: Yes (13) Vaginitis: reports white, pruritic d/c for several weeks currently on daily fluconazole she asks for vaginal insert miconazole applicator daily ordered either she has fluconazole-resistant jose vaginitis or BV if she fails to improve she would need nuclear plant instrument technician consult for exam and swabs for confirmation (14) DVT prophylaxis: lovenox 40mg daily spoke with mom/dad reviewed plan of care re: RUQ abd pain in light of significant testing over last few months without a cause (see HPI) I recommended an MRCP (she is s/p lap bull) she would need to have this done at [facility] as her PC NETWORK TECHNICIAN Shunt needs to be reprogrammed after the MRI hopefully home tomorrow once IV daptomycin is set up (would need 4 or 5 more daily doses) Subjective I saw Cnonie in the afternoon. This was following her psych consult. Immediately upon entering her room she stated "I feel safe now." She denied any suicidal ideation. Denied any hallucinations. Main complaint was that of RUQ abdominal pain. Present for 1-2 months. Worsened by eating. Happens within 20 minutes of eating. Associated with nausea. Has had 5 CTs, upper GI series, abd u/s, and multiple xrays since 2018 roughly. Review of Systems Constitutional: no fever, no chills and no anorexia Respiratory: no dyspnea Cardiovascular: no chest pain Gastrointestinal: as per Subjective / HPI, + abdominal pain, + nausea and + constipation; no vomiting and no diarrhea/loose stools Physical Exam Constitutional: + morbidly obese; no acute distress and no altered mental status ENMT: external ear and nose normal, oropharynx normal Respiratory: normal respiratory effort, lungs clear to auscultation Auscultation: + diminished lung sounds (bases) Cardiovascular: Rate/Rhythm: regular rhythm and + tachycardic Heart Sounds: normal S1 and normal S2; no murmur Vessels: no JVD Gastrointestinal (Abdomen): Inspection/Auscultation: normal bowel sounds Percussion/Palpation: + abdomen tender (RUQ (mild)) and abdomen soft; no hepatosplenomegaly Musculoskeletal: amputations b/l legs (short stumps only) Psychiatric: Orientation: alert and oriented x 3 Mood: no depressed mood and no anxious mood Results & Data Vital Signs (Past 12 Hours) Vital Signs Temp Pulse Resp BP Pulse Ox 10/14/18 15:14 36.5 C 112 H 20 114/74 95 10/14/18 12:12 36.4 C L 106 H 20 123/80 95 Laboratory Results Laboratory Results - last 24 hr 10/14/18 10/14/18 05:50 05:50 WBC 5.40 RBC 4.01 L Hgb 12.6 Hct 39.5 MCV 98.5 MCH 31.4 MCHC 31.9 L RDW Std Deviation 57.7 H RDW Coeff of Neda 15.9 H Plt Count 222 MPV 11.1 H Immature Gran % (Auto) 0.4 Neut % (Auto) 47.5 Lymph % (Auto) 35.0 Izard % (Auto) 12.2 Eos % (Auto) 4.3 Baso % (Auto) 0.6 Immature Gran # (Auto) 0.02 Neut # (Auto) 2.57 Lymph # (Auto) 1.89 Izard # (Auto) 0.66 H Eos # (Auto) 0.23 Baso # (Auto) 0.03 Sodium 144 Potassium 3.1 L Chloride 111 H Carbon Dioxide 25 Anion Gap 8.0 BUN 10 Creatinine 0.68 Est Cr Clr Drug Dosing 102.0 Est GFR ( Amer) 135.1 Est GFR (Non-Af Amer) 116.6 BUN/Creatinine Ratio 14.6 Glucose 122 H Calcium 8.5 Diagnostic Findings 10/10/18 urine cx with MRSA (final resulted on 10/13/18) (1) UTI (urinary tract infection) due to urinary indwelling catheter Indwelling urinary catheter type: cystostomy catheter Encounter type: subsequent encounter Qualified Code(s): T83.510D - Infection and inflammatory reaction due to cystostomy catheter, subsequent encounter; N39.0 - Urinary tract infection, site not specified (2) Constipation Constipation type: unspecified constipation type Qualified Code(s): K59.00 - Constipation, unspecified (3) Spina bifida Spinal region: unspecified Presence of hydrocephalus: unspecified hydrocephalus presence Qualified Code(s): Q05.9 - Spina bifida, unspecified (4) Asthma Asthma severity: unspecified severity Asthma persistence: unspecified Asthma complication type: uncomplicated Qualified Code(s): J45.909 - Unspecified asthma, uncomplicated (5) GERD (gastroesophageal reflux disease) Esophagitis presence: esophagitis presence not specified Qualified Code(s): K21.9 - Gastro-esophageal reflux disease without esophagitis (6) Hypothyroid Hypothyroidism type: acquired Qualified Code(s): E03.9 - Hypothyroidism, unspecified (7) Vaginitis Chronicity: acute Qualified Code(s): N76.0 - Acute vaginitis
[2018-10-14] MEDS: ECONAZOLE NITRATE 1% CRM 15 GM TUBE EXT SCH (20:31)
[2018-10-14] MEDS: TRAZODONE HCL 50 MG TAB PO SCH (20:33)
[2018-10-14] MEDS: FAMOTIDINE 20 MG TAB PO SCH (20:38)
[2018-10-14] MEDS: ENOXAPARIN INJ 40 MG/0.4 ML SYR SQ SCH (20:39)
[2018-10-14] MEDS ORDERED: QUDEXY PO SCH (21:00)
[2018-10-14] MEDS ORDERED: MICONAZOLE NITRATE 2% VAG CR 45 GM TUBE PV SCH (21:00)
[2018-10-15] MEDS: HEPARIN 100 UNIT/ML 5ML FLUSH FLUSH PRN ×2 (05:41→14:37)
[2018-10-15] MEDS: LEVOTHYROXINE SODIUM 88 MCG TABLET PO SCH (06:25)
[2018-10-15 06:38] LABS: Basophils # (auto) 0.03 K/uL (0-0.2); Basophils % (auto) 0.5 %; Eosinophils # (auto) 0.23 K/uL (0-0.5); Hemoglobin 12.2 g/dL (12.0-16.0); Immature Granulocytes # (auto) 0.02 K/uL (0.00-0.02); Immature Granulocytes % (auto) 0.3 %; Lymphocytes # (auto) 2.32 K/uL (1.2-3.4); Lymphocytes % (auto) 40.1 %; Mean Corpuscular Hgb Conc 32.1 g/dL (32-36); Mean Corpuscular Volume 98.4 fL (80-100); Mean Platelet Volume 10.4 fL (7.4-10.4); Monocytes # (auto) 0.67 K/uL (0.11-0.59); Monocytes % (auto) 11.6 %; Neutrophils # (auto) 2.51 K/uL (1.4-6.5); Neutrophils % (auto) 43.5 %; Platelet Count 209 K/uL (130-400); RDW Coefficient of Variation 16.2 % (11.5-14.5); RDW Standard Deviation 57.9 fL (36.4-46.3); Red Blood Count 3.86 M/uL (4.2-5.4); White Blood Count 5.78 K/uL (4.8-10.8)
[2018-10-15 07:20] LABS: BUN Creatinine Ratio 14.5 (10-20); Calcium 8.5 mg/dl (8.5-10.1); Creatinine Clr Calc Pharmacy 126.2 ml/min; Est GFR (African American) 144.9; Potassium 3.7 mmol/L (3.5-5.1)
[2018-10-15] MEDS: LACTOBACILLUS ACIDOPHILUS (FLORANEX) TAB PO SCH ×2 (08:21→14:33)
[2018-10-15] MEDS: LUBIPROSTONE 8 MCG CAP PO SCH (08:21)
[2018-10-15] MEDS: PRENATAL VITAMIN 1 TAB PO SCH (08:21)
[2018-10-15] MEDS: POTASSIUM CHLORIDE 20 MEQ TABCR PO SCH ×2 (08:21→14:33)
[2018-10-15] MEDS: CYANOCOBALAMIN 500 MCG TABLET (VITAMIN B-12) PO SCH (08:21)
[2018-10-15] MEDS: buPROPion HCl 100 MG TABLET PO SCH (08:21)
[2018-10-15] MEDS: PANTOprazole 40 MG TAB PO SCH (08:21)
[2018-10-15] MEDS: VENLAFAXINE HCL XR 150 MG CAPXR PO SCH (08:21)
[2018-10-15] MEDS: FLUTICASONE/SALMETEROL (ADVAIR) 500/50 INH 14 PUFF INH SCH (08:22)
[2018-10-15] MEDS: QUDEXY PO SCH (08:23)
[2018-10-15] MEDS: MEXILETINE HCL PO SCH ×2 (08:23→11:28)
[2018-10-15] MEDS: ECONAZOLE NITRATE 1% CRM 15 GM TUBE EXT SCH (08:24)
[2018-10-15] MEDS: FLUCONAZOLE 100 MG TAB PO SCH (08:24)
--- NOTE | 2018-10-15 13:19 | Discharge Summary ---
Date of Service October 15, 2018 Admission HPI Per Admitting Provider Connie is a 33-year-old female with a history of spina bifida and neurogenic bladder with a chronic suprapubic catheter in place. She has chronic UTIs with most recent culture grew MRSA. She is allergic to multiple antibiotics and needs IV antibiotic therapy leading to this medical admission for starting daily dosing of daptomycin which then can be converted to outpt care through her port. admitted 10/13/18 Connie is well known to the psychiatric service, and psychiatrically has been fairly stable for the past year months. She shared with creative services writer that her outpt psychiatric provider has recently wean her off Rexulti over concerns of it adding to her wt gain trend and that perhaps pt might not need this medication at this time. Pt denied AH and endorsed intrusive thoughts when emotionally distressed (baseline concern). These included self harming without SI and pt did use her cutlery from her meal to superficially scratch her self this morning to help numb her emotional tensions. She felt her mind was racing as she felt emotional distressed and felt sad and lonely and frustrated over mother not being present at that time. Psychiatric nurse liaison further assessed her again just after this superficial SIB and creative services writer assessed her shortly after that. Pt indicated she would feel safer with her belongings being secure by the hospital which was done. Pt reports longstanding issues with sleep with her viewing trazodone as limited in its effectiveness and that she obtains 5 or so hours of sleep a night by having her service dog with her while at home. Pt denied any SI and reports feeling safe to be discharged home when medically cleared. Pt tends to seek contact from mother and/or staff while at the hospital. denied manic symptoms, endorsed tendency to feel sad or angry and how finds those feelings are told not occur and she feels its difficult to contain the feelings and thus prefers to try to numb them. takes Contrave (low dose wellbutrin/naltrexone) effexor, trazodone, also on topamax and gabapentin weaned rexulti dose and then been off it for past 2 weeks per pt. pt indicated that dx is in process of being changed from schizoaffective b/p type to MDD per pt report Admission Exam Per Admitting Provider Physical Exam Constitutional: + morbidly obese; not ill appearing and no altered mental status Eyes: PERRL, conjunctivae normal, anicteric sclerae ENMT: external ear and nose normal, oropharynx normal Neck: trachea midline, no thyromegaly Respiratory: normal respiratory effort, lungs clear to auscultation Cardiovascular: RRR, no murmur, no edema Gastrointestinal (Abdomen): normal bowel sounds, soft, nontender, no hepatosplenomegaly Musculoskeletal: Status post bilateral BKA Skin: no rashes, warm and dry Neurologic: CN's II-XI intact bilaterally and moves all extremities; no focal motor deficits Principal Diagnosis MRSA UTI Discharge Exam Constitutional WD/WN, vitals as above + obese Eyes PERRL, conjunctivae normal, anicteric sclerae ENMT external ear and nose normal, oropharynx normal Neck trachea midline, no thyromegaly Respiratory normal respiratory effort, lungs clear to auscultation Cardiovascular RRR, no murmur, no edema Gastrointestinal (Abdomen) normal bowel sounds, soft, nontender, no hepatosplenomegaly Musculoskeletal Head/Neck/Chest: normocephalic and head atraumatic Spine: + limited thoraco-lumbar ROM Extremities: + limited ROM of extremities, + abnormal strength (weak in legs) and + muscle atrophy (legs) Skin no rashes, warm and dry Neurologic patellar DTR's 2+ bilat, sensation intact and PERRL, EOMI, accommodation nl, no face palsy, no dysarthria Psychiatric A+Ox3, euthymic affect Lymphatic no cervical or axillary lymphadenopathy Discharge Data Allergies Allergy/AdvReac Type Severity Reaction Status Date / Time chlorhexidine Allergy Severe Rash Verified 10/13/18 18:14 adhesive Allergy Intermediate TAPE- HIVES Verified 10/13/18 18:14 ceftriaxone Allergy Intermediate rash, Has Verified 10/13/18 18:14 tolerated cefepime and Zerbaxa Cipro Allergy Intermediate hives Verified 01/11/18 17:31 ciprofloxacin Allergy Intermediate hives Verified 10/13/18 18:14 imipenem Allergy Intermediate PT REPORTS Verified 10/13/18 18:14 ITCHING latex Allergy Intermediate hives Verified 10/13/18 18:14 levofloxacin Allergy Intermediate rash,HEARD Verified 10/13/18 18:14 VOICES linezolid Allergy Intermediate rash Verified 10/13/18 18:14 morphine Allergy Intermediate Rash Verified 10/13/18 18:14 nitrofurantoin Allergy Intermediate rash and Verified 10/13/18 18:14 hives piperacillin Allergy Intermediate SEVERE Verified 10/13/18 18:14 RASH, HIVES tazobactam Allergy Intermediate SEVERE Verified 10/13/18 18:14 RASH, HIVES trimethoprim Allergy Intermediate Hives Verified 10/13/18 18:14 vancomycin Allergy Intermediate rash Verified 10/13/18 18:14 amikacin Allergy Unknown PER DR Verified 10/13/18 18:14 ROBINS,RXN WAS TO ZOSYN NOT AMKrash;hives Bactrim Allergy Unknown Hives Verified 01/11/18 17:31 sulfamethoxazole Allergy Unknown Hives Verified 10/13/18 18:14 dextrose 5 % in water Allergy Hives Verified 10/13/18 18:14 [From Zyvox] buspirone AdvReac Severe HALLUCINATI Verified 10/13/18 18:14 ONS Consultations 10/13/18 20:52 Consult Psychiatry Routine Hospital Course (1) UTI (urinary tract infection) due to urinary indwelling catheter: Complicated/catheter associated. 2nd to MRSA. day #3 of IV daptomycin. no fever, normal WBC, vitals stable arrange for 4 more days of Daptomycin at home has a port (2) Abdominal pain, chronic, right upper quadrant: 5 CTs since May 2019 each only showing constipation upper GI series (normal) abdominal u/s (normal) numerous x-rays (constipation) EGD - 2016 - gastritis only prior gastric emptying study - mildly abnormal, already has dx of gastroparesis recommend outpatient MRCP - this would have to be arranged for [facility] provided with script for MRCP, sent to [place], she requires conscious sedation and needs her shunt turned off temporarily (3) Constipation: cont bowel regimen (4) Chronic suprapubic catheter: mother flushes this at home need to check with mother to see when catheter was last changed (5) S/P bilateral BKA (below knee amputation): (6) Spina bifida: with resulting acquired paraplegic status and numerous skin complications from such (7) Morbid obesity: BMI 78 (8) Asthma: no issues no flare at this time cont advair BID (9) GERD (gastroesophageal reflux disease): cont PPI (10) S/P CARDIOTHORACIC PHYSIOTHERAPIST shunt: no issues (11) Hypothyroid: TSH 04/2018 wnl cont synthroid (12) Schizoaffective disorder, bipolar type: seen by psych as pt was telling staff she was feeling unsafe this am placed briefly on 1:1 she denied any suicidal or homicidal ideation psych confirms she was recently weaned off her antipsychotics since she is not reporting any psychotic symptoms she will remain off those meds all other meds to be continued (13) Vaginitis: reports white, pruritic d/c for several weeks currently on daily fluconazole miconazole applicator daily ordered either she has fluconazole-resistant jose vaginitis or BV referred to see Gynecology on 10/[address] Hawk (14) DVT prophylaxis: lovenox 40mg daily spoke with mom/dad reviewed plan of care re: RUQ abd pain in light of significant testing over last few months without a cause (see HPI) I recommended an MRCP (she is s/p lap bull) she would need to have this done at [facility] [place] as her CARDIOTHORACIC PHYSIOTHERAPIST Shunt needs to be reprogrammed after the MRI hopefully home tomorrow once IV daptomycin is set up (would need 4 or 5 more daily doses) Total Time Total Time Spent Total Time Spent (In Minutes): 32 minutes Total Time Includes: Examination of the Patient, Discharge Planning, Medication Reconciliation and Communication With Other Providers Discharge Plan Discharge Items Patient Disposition: Home - Home Health Services Reason For Visit: MRSA UTI Discharge Diagnosis: MRSA UTI Condition: Good Discharge Goals: Diagnostic testing and Improve disease control Activity: Resume your previous activity Non-emergency contact: Primary Care Provider Call non-emergency contact if: you have any medication questions, your symptoms worsen and you have a fever Follow-up/Referrals: Mamta Hawk MD [Physician] - 10/18/18 3:45 pm (Please, follow up at [facility] Gynecology Office with Dr. Mamta Hawk on October 18 at 3:45 pm. *The office is located in [address] of [facility]. This is the big building located next to this [facility]. If you need to change this appointment, call the office at [phone].) Gela Boone MD [Primary Care Provider] - 10/24/18 3:00 pm (Please, follow up at Dr. Boone's office with her catering administrative assistant, Sharon Johnson PA-C, on MondayOctober 24 at 3:00 pm. *If you need to change this appointment, call the office at [phone].) Diet: Regular Addtl Provider Instructions: Medications: - DAPTOMYCIN: 375mg IV every 24 hours for 4 more days MRSA UTI: sensitive to Daptomycin, complete IV treatment at home Vaginal discharge: since there is no response to Fluconazole, will set up outpatient appt with gynecology will see Dr. Hawk on 10/17 for exam and testing Chronic abdominal pain several CAT scans since June, no obvious pathology consider MRCP at [place] as outpatient would likely need to be approved by insurance prior to testing will provide with script for MRCP and defer to PCP this is not an urgent test Prescriptions: New hydroxyzine HCl 25 mg Tablet 25 mg PO TID PRN (Reason: anxiety) 14 Days Qty: 45 RF: 0 Continued chromium picolinate 200 mcg tablet 200 mcg PO TID RF: 0 polyethylene glycol 3350 17 gram powder in packet 17 g PO TID RF: 0 famotidine 40 mg tablet 40 mg PO HS RF: 0 venlafaxine 150 mg capsule,extended release 24hr 150 mg PO QAM RF: 0 dihydroergotamine [D.H.E.45] 1 mg/mL solution 1 mg IM UD PRN (Reason: Migraine Headache) RF: 0 levothyroxine 88 mcg tablet 88 mcg PO DAILYBB RF: 0 cyanocobalamin (vitamin B-12) 500 mcg Tablet 500 mcg PO QAM RF: 0 mexiletine 150 mg capsule 300 mg PO TID RF: 0 pantoprazole 40 mg tablet,delayed release (DR/EC) 40 mg PO BID RF: 0 hyoscyamine sulfate [Levsin] 0.125 mg tablet 0.125 mg PO TIDM RF: 0 trazodone 150 mg tablet 150 mg PO HS RF: 0 montelukast 10 mg tablet 10 mg PO DAILY RF: 0 furosemide 20 mg tablet 20 tab PO BID PRN (Reason: Edema) RF: 0 albuterol sulfate [ProAir HFA] 90 mcg/actuation Hfa Aerosol Inhaler 2 puff INHALATION DAILY PRN (Reason: Shortness Of Breath Or Wheezing) RF: 0 ondansetron 4 mg tablet,disintegrating 4 mg PO Q6 PRN (Reason: Nausea And Vomiting) RF: 0 metoclopramide HCl [Reglan] 10 mg tablet 10 mg PO BID RF: 0 ketamine 100 mg/mL Solution 1 - 2 spray Intranasal DIRECTED MDD 20 PRN (Reason: Migraine Headache) RF: 0 Probiotic 3 billion cell Capsule 1 cap PO TID RF: 0 Multi 27-800 mg-mcg Tablet 1 tab PO DAILY RF: 0 potassium chloride 20 mEq tablet,ER particles/crystals 20 meq PO UD PRN (Reason: prn) RF: 0 Botox 100 unit Recon Soln 1 dose IM Q90D RF: 0 nystatin 100,000 unit/gram ointment 1 appln TOP BID PRN (Reason: Skin Irritation) RF: 0 Ajovy 1 dose INJ MONTHLY RF: 0 gabapentin 100 mg Capsule 100 mg PO TID RF: 0 haloperidol 2 mg tablet 2 mg PO Q12 PRN (Reason: PRN) RF: 0 topiramate [Qudexy XR] 100 mg capsule,sprinkle,ER 24hr 200 mg PO DIRECTED RF: 0 metformin 500 mg Tablet 500 mg PO QPM RF: 0 cetirizine [Zyrtec] 10 mg Tablet 10 mg PO DAILY PRN (Reason: while on antibiotic) RF: 0 fluticasone propion-salmeterol [Advair Diskus] 500-50 mcg/dose Blister With Device 1 inh INHALATION BID RF: 0 Amitiza 24 mcg Capsule 24 mcg PO BID RF: 0 benztropine 2 mg/2 mL Solution 1 mg IM BID RF: 0 Rexulti 2 mg Tablet 2 mg PO QAM RF: 0 levalbuterol HCl [Xopenex] 0.63 mg/3 mL Solution For Nebulization 0.63 mg INHALATION TID PRN (Reason: sob) RF: 0 bupropion HCl 100 mg Tablet 100 mg PO QAM RF: 0 fluconazole 100 mg Tablet 100 mg PO PM RF: 0 Stand-Alone Forms: [facility] Discharge Orders: Discharge Order (Routine); Ordered 10/15/18 Ordered By: Rudy Vazquez Admission Data Admit Date/Time: 10/13/18 18:49 Attending Provider: Rudy Vazquez Admit Provider: Rocael Cullen Primary Care Provider: Gela Boone Other Providers: Daysi Valderrama Service: Medical Other Interventions: Discharge Summary Assessment (RN) Last Done: 10/15/18 15:30 DC Date/Time DO NOT enter until pt leaves facility: 10/15/18 16:47
[2018-10-15] MEDS ORDERED: DAPTOmycin 375 MG in SYRINGE 0 ML IV SCH (15:00)
== END 2018-10-15 16:47 | disposition home health service (06) ==
LOC: 4E 16:51 → ED 16:51 → SUATTDRO 18:49 → 4E 19:32

== ENCOUNTER 2018-10-31 19:28 | Observation (INO) ==
[2018-10-31] MEDS ORDERED: SODIUM CHLORIDE 0.9% 1000ML 1,000 ML IV ONE (20:42)
--- NOTE | 2018-10-31 21:12 | XRay Report ---
XR chest 1V portable HISTORY: Sepsis COMPARISON: Chest 09/08/2018. FINDINGS: There are low lung volumes. No pneumothorax. No pleural effusions. The cardiac silhouette i s normal in size. Bibasilar linear densities persist. The upper lung zones remain clear. No evidence for pulmonary edema. Right subclavian Port-A-Cath terminates at the distal SVC. A right-sided shunt c atheter appears unchanged. IMPRESSION: No significant change compared to the prior study. No acute process. Low lung volumes with bibasilar linear densities suggesting subsegmental atelectasis. Electronically signed by: Edward Dixon M.D. 10/31/2018 9:10 PM
[2018-10-31 21:32] LABS: Basophils # (auto) 0.02 K/uL (0-0.2); Basophils % (auto) 0.2 %; Eosinophils # (auto) 0.07 K/uL (0-0.5); Eosinophils % (auto) 0.7 %; Hematocrit (blood only) 41.1 % (37-47); Hemoglobin 13.5 g/dL (12.0-16.0); Immature Granulocytes # (auto) 0.06 K/uL (0.00-0.02); Immature Granulocytes % (auto) 0.6 %; Lymphocytes # (auto) 0.56 K/uL (1.2-3.4); Lymphocytes % (auto) 5.2 %; Mean Corpuscular Hgb Conc 32.8 g/dL (32-36); Mean Corpuscular Volume 96.3 fL (80-100); Mean Platelet Volume 10.6 fL (7.4-10.4); Monocytes # (auto) 0.53 K/uL (0.11-0.59); Monocytes % (auto) 4.9 %; Neutrophils # (auto) 9.49 K/uL (1.4-6.5); Neutrophils % (auto) 88.4 %; Platelet Count 213 K/uL (130-400); RDW Coefficient of Variation 15.5 % (11.5-14.5); RDW Standard Deviation 54.2 fL (36.4-46.3); Red Blood Count 4.27 M/uL (4.2-5.4); White Blood Count 10.73 K/uL (4.8-10.8)
[2018-10-31 21:42] LABS: INR 1.2 (0.9-1.1); Partial Thromboplastin Ratio 0.9; Partial Thromboplastin Time 24.4 Seconds (21.0-31.0); Prothrombin Time 12.1 Seconds (9.0-12.0)
[2018-10-31 21:56] LABS: BUN Creatinine Ratio 9.5 (10-20); Calcium 9.1 mg/dl (8.5-10.1); Creatinine Clr Calc Pharmacy 88.8 ml/min; Est GFR (African American) 104.3; Potassium 2.9 mmol/L (3.5-5.1)
[2018-10-31 21:59] LABS: Albumin Globulin Ratio 0.7 (0.9-2); Bilirubin,Total 0.4 mg/dl (0.2-1); Globulin 4.4 gm/dl (2.5-4.0); Total Protein 7.4 gm/dl (6.4-8.2)
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
[2018-11-01] MEDS ORDERED: ALBUTEROL HFA 8 GM INHALER INH PRN (01:39)
[2018-11-01] MEDS ORDERED: GLUCAGON FOR INJ 1 MG VIAL SQ PRN (01:39)
[2018-11-01] MEDS ORDERED: DEXTROSE 50% 50 ML SYRINGE IV PRN (01:39)
[2018-11-01] MEDS ORDERED: CARBOHYDRATES FOR HYPOGLYCEMIA PO PRN (01:39)
[2018-11-01] MEDS ORDERED: ONDANSETRON 4 MG OD TAB PO PRN (01:39)
[2018-11-01] MEDS ORDERED: GLUCOSE 10 TABS/TUBE PO PRN (01:39)
[2018-11-01] MEDS ORDERED: NYSTATIN OINT 15 GM TUBE PRN (01:39)
[2018-11-01] MEDS ORDERED: MAGNESIUM HYDROXIDE SUSP 30 ML UDC PO PRN (01:39)
[2018-11-01] MEDS ORDERED: GLUCOSE 40% GEL 15 GM TUBE PO PRN (01:39)
[2018-11-01] MEDS ORDERED: HALOPERIDOL 1 MG TAB PO PRN (01:39)
[2018-11-01] MEDS ORDERED: ALUMINUM/MAGNESIUM SUSP 30 ML UDC PO PRN (01:39)
[2018-11-01] MEDS ORDERED: CETIRIZINE HCL 10 MG TABLET PO PRN (01:39)
[2018-11-01] MEDS ORDERED: LEVALBUTEROL HCL 0.63 MG/3 ML NEB INH PRN (01:39)
[2018-11-01] MEDS ORDERED: DIHYDROERGOTAMINE MESYLATE 1 MG/ML VIAL IM PRN (01:39)
[2018-11-01] MEDS: METOCLOPRAMIDE HCL 10 MG TABLET PO SCH ×3 (03:48→21:18)
[2018-11-01] MEDS: BENZTROPINE MESYLATE 1 MG/ML 2 ML AMP IM SCH ×3 (03:49→21:19)
[2018-11-01] MEDS: PANTOprazole 40 MG TAB PO SCH ×3 (03:49→21:21)
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
[2018-11-01] MEDS: CEFTOLOZANE IV SCH ×3 (06:24→22:10)
[2018-11-01] MEDS: LEVOTHYROXINE SODIUM 88 MCG TABLET PO SCH (06:24)
[2018-11-01] MEDS: TAZOBACTAM IV SCH ×3 (06:24→22:10)
[2018-11-01 06:28] LABS: Estimated Average Glucose 120 mg/dl
[2018-11-01] MEDS ORDERED: NON-FORMULARY MEDICATION (Chromium Picolinate 200 MCG) PO SCH (09:00)
[2018-11-01] MEDS: MONTELUKAST SODIUM 10 MG TABLET PO SCH (09:06)
[2018-11-01] MEDS: VENLAFAXINE HCL XR 150 MG CAPXR PO SCH (09:06)
[2018-11-01] MEDS: CYANOCOBALAMIN 500 MCG TABLET (VITAMIN B-12) PO SCH (09:08)
[2018-11-01] MEDS: FLUTICASONE/SALMETEROL (ADVAIR) 500/50 INH 14 PUFF INH SCH ×2 (09:08→21:25)
[2018-11-01] MEDS: buPROPion HCl 100 MG TABLET PO SCH (09:08)
[2018-11-01] MEDS: HYOSCYAMINE SULFATE 0.125 MG TAB PO SCH ×3 (09:09→17:30)
[2018-11-01] MEDS: HEPARIN SOD 5,000 UNIT/0.5 ML VIAL SQ SCH ×3 (09:10→21:35)
[2018-11-01] MEDS: PRENATAL VITAMIN 1 TAB PO SCH (09:11)
[2018-11-01] MEDS: POLYETHYLENE (MIRALAX) 17 GM PACK PO SCH ×3 (09:11→21:28)
[2018-11-01] MEDS: FLUCONAZOLE 50 MG TAB PO SCH (09:12)
[2018-11-01] MEDS: QUDEXY PO SCH ×2 (09:14→21:24)
[2018-11-01] MEDS: AMITIZA PO SCH ×2 (09:15→21:22)
[2018-11-01] MEDS: REXULTI PO SCH (09:16)
[2018-11-01] MEDS: MEXILETINE HCL PO SCH ×3 (09:16→21:22)
[2018-11-01] MEDS: INSULIN ASPART 100 UNITS/ML 3 ML PEN SC SCH ×4 (09:21→21:21)
[2018-11-01] MEDS: ONDANSETRON INJ 2 MG/ML 2 ML VIAL IV PRN (10:23)
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
[2018-11-01] MEDS: ACETAMINOPHEN 325 MG TAB PO PRN (16:40)
--- NOTE | 2018-11-01 17:06 | Hospitalist Progress Note ---
Date of Service November 01, 2018 Assessment & Plan (1) UTI (urinary tract infection): She was started on Zerbexa by Dr. Sauceda from infectious disease as outpatient on 10/30, which has been continued. - Continue Zerbexa - Follow urine culture and sensitivity. - Consult Dr. Sauceda - Appreciate recs (2) Sepsis: With borderline hypotension, tachycarida, and fever at home. Resolved by 11/01. - As above. (3) Vaginitis: Patient has been recently diagnosed with yeast vaginitis, but her mother reports he had not been able to get the pharmacy to get the Diflucan started. - Continue Diflucan 150 mg p.o. daily. (4) Schizoaffective disorder: Appears to be at baseline mental status. - Continue usual medications. (5) Spina bifida: - Continue usual medications and supports. (6) Morbid obesity: Noted. (7) Chronic suprapubic catheter: Serves as a source of her recurrent urinary tract infections. (8) Hypothyroid: TSH was 2.4 in 2018. No signs/symptoms of hypo-/hyperthyroidism. - Continue levothyroxine sodium 80 mcg PO (9) DVT prophylaxis: Heparin 5000 units Q12h Subjective Headache and some nausea. Also with some mild suprapubic pain. Review of Systems Review of Systems: All systems reviewed & are unremarkable except as noted in HPI & below Physical Exam Constitutional: WD/WN, vitals as above + morbidly obese; no acute distress Eyes: PERRL, conjunctivae normal, anicteric sclerae ENMT: external ear and nose normal, oropharynx normal Neck: trachea midline, no thyromegaly Respiratory: normal respiratory effort, lungs clear to auscultation no respiratory distress Cardiovascular: RRR, no murmur, no edema Heart Sounds: no gallop and no cardiac rub Gastrointestinal (Abdomen): Inspection/Auscultation: abdomen normal to inspection and normal bowel sounds Percussion/Palpation: + abdomen tender (Lower quadrant); no hepatosplenomegaly and no abdominal mass Musculoskeletal: Head/Neck/Chest: normocephalic and neck supple Skin: no rashes, warm and dry Neurologic: moves all extremities; no focal motor deficits Psychiatric: A+Ox3, euthymic affect Results & Data Vital Signs (Past 12 Hours) Vital Signs Temp Pulse Resp BP Pulse Ox 11/01/18 15:40 37.3 C 105 H 20 104/73 97 11/01/18 07:44 36.7 C 104 H 22 120/72 93 (1) UTI (urinary tract infection) Encounter type: subsequent encounter Indwelling urinary catheter type: unspecified Urinary tract infection type: catheter-associated UTI Qualified Code(s): T83.511D - Infection and inflammatory reaction due to indwelling urethral catheter, subsequent encounter; N39.0 - Urinary tract infection, site not specified (2) Sepsis Sepsis type: sepsis due to unspecified organism Qualified Code(s): A41.9 - Sepsis, unspecified organism (3) Vaginitis Chronicity: acute Qualified Code(s): N76.0 - Acute vaginitis (4) Spina bifida Spinal region: unspecified Presence of hydrocephalus: unspecified hydrocephalus presence Qualified Code(s): Q05.9 - Spina bifida, unspecified (5) Hypothyroid Hypothyroidism type: acquired Qualified Code(s): E03.9 - Hypothyroidism, unspecified
[2018-11-01] MEDS: FAMOTIDINE 20 MG TAB PO SCH (21:17)
[2018-11-01] MEDS: TRAZODONE HCL 50 MG TAB PO SCH (21:21)
[2018-11-01] MEDS: GABAPENTIN 300 MG CAP PO SCH (21:31)
[2018-11-01] MEDS: HEPARIN 100 UNIT/ML 5ML FLUSH FLUSH PRN (23:19)
[2018-11-02] MEDS: ONDANSETRON INJ 2 MG/ML 2 ML VIAL IV PRN (02:58)
[2018-11-02] MEDS: HEPARIN 100 UNIT/ML 5ML FLUSH FLUSH PRN ×5 (03:01→23:19)
[2018-11-02] MEDS: CEFTOLOZANE IV SCH ×3 (06:08→22:11)
[2018-11-02] MEDS: TAZOBACTAM IV SCH ×3 (06:08→22:11)
[2018-11-02] MEDS: LEVOTHYROXINE SODIUM 88 MCG TABLET PO SCH (06:08)
[2018-11-02 08:14] LABS: Hematocrit (blood only) 35.7 % (37-47); Hemoglobin 11.4 g/dL (12.0-16.0); Mean Corpuscular Hgb Conc 31.9 g/dL (32-36); Mean Corpuscular Volume 96.5 fL (80-100); Mean Platelet Volume 10.4 fL (7.4-10.4); Platelet Count 217 K/uL (130-400); RDW Coefficient of Variation 15.7 % (11.5-14.5); RDW Standard Deviation 55.1 fL (36.4-46.3); White Blood Count 5.43 K/uL (4.8-10.8)
[2018-11-02] MEDS: INSULIN ASPART 100 UNITS/ML 3 ML PEN SC SCH ×4 (08:43→21:17)
[2018-11-02 08:46] LABS: BUN Creatinine Ratio 14.5 (10-20); Calcium 8.5 mg/dl (8.5-10.1); Creatinine Clr Calc Pharmacy 127.7 ml/min; Est GFR (Non-African American) 120.8; Magnesium 1.9 mg/dl (1.8-2.4); Potassium 2.8 mmol/L (3.5-5.1)
[2018-11-02] MEDS: POLYETHYLENE (MIRALAX) 17 GM PACK PO SCH ×3 (08:46→21:16)
[2018-11-02] MEDS: PRENATAL VITAMIN 1 TAB PO SCH (08:48)
[2018-11-02] MEDS: CYANOCOBALAMIN 500 MCG TABLET (VITAMIN B-12) PO SCH (08:48)
[2018-11-02] MEDS: PANTOprazole 40 MG TAB PO SCH ×2 (08:48→21:13)
[2018-11-02] MEDS: VENLAFAXINE HCL XR 150 MG CAPXR PO SCH (08:48)
[2018-11-02] MEDS: HYOSCYAMINE SULFATE 0.125 MG TAB PO SCH ×3 (08:48→17:42)
[2018-11-02] MEDS: MONTELUKAST SODIUM 10 MG TABLET PO SCH (08:48)
[2018-11-02] MEDS: FLUCONAZOLE 50 MG TAB PO SCH (08:49)
[2018-11-02] MEDS: METOCLOPRAMIDE HCL 10 MG TABLET PO SCH ×2 (08:49→21:13)
[2018-11-02] MEDS: GABAPENTIN 300 MG CAP PO SCH ×3 (08:50→21:13)
[2018-11-02] MEDS: FLUTICASONE/SALMETEROL (ADVAIR) 500/50 INH 14 PUFF INH SCH ×2 (08:51→21:14)
[2018-11-02] MEDS: HEPARIN SOD 5,000 UNIT/0.5 ML VIAL SQ SCH ×2 (08:51→21:26)
[2018-11-02] MEDS: QUDEXY PO SCH ×2 (08:51→21:22)
[2018-11-02] MEDS: BENZTROPINE MESYLATE 1 MG/ML 2 ML AMP IM SCH ×2 (08:51→21:15)
[2018-11-02] MEDS: MEXILETINE HCL PO SCH ×3 (08:51→21:19)
[2018-11-02] MEDS: REXULTI PO SCH (08:52)
[2018-11-02] MEDS: AMITIZA PO SCH ×2 (08:52→21:18)
[2018-11-02] MEDS: buPROPion HCl 100 MG TABLET PO SCH (08:53)
[2018-11-02] MEDS ORDERED: HALOPERIDOL 1 MG TAB PO PRN (10:39)
[2018-11-02] MEDS ORDERED: POTASSIUM CHLORIDE PWD 20 MEQ PACK PO SCH (13:00)
[2018-11-02] MEDS: FUROSEMIDE 20 MG TAB PO SCH ×2 (13:20→17:42)
[2018-11-02] MEDS ORDERED: Nursing to Pharmacy Communication ONE (13:41)
[2018-11-02] MEDS: POTASSIUM CHLORIDE 20 MEQ TABCR PO SCH (14:02)
--- NOTE | 2018-11-02 14:03 | Hospitalist Progress Note ---
Date of Service November 02, 2018 Assessment & Plan (1) UTI (urinary tract infection): She was started on Zerbexa by Dr. Sauceda from infectious disease as outpatient on 10/30, which has been continued. - Continue Zerbexa - Follow blood cultures - Consulted Dr. Sauceda - Appreciate recs - 10-days Zerbaxa and 1 week of fluconazole (2) Sepsis: With borderline hypotension, tachycarida, and fever at home. Resolved by 11/01. - As above. (3) Vaginitis: Patient has been recently diagnosed with yeast vaginitis, but her mother reports she had not been able to get the pharmacy to get the Diflucan started. - Continue Diflucan 150 mg p.o. daily. - Discussed with Dr. Sauceda - 1 week total course. (4) Schizoaffective disorder: Appears to be at baseline mental status. - Continue usual medications. (5) Spina bifida: - Continue usual medications and supports. (6) Morbid obesity: Noted. (7) Chronic suprapubic catheter: Serves as a source of her recurrent urinary tract infections. (8) Hypothyroid: TSH was 2.4 in 2018. No signs/symptoms of hypo-/hyperthyroidism. - Continue levothyroxine sodium 80 mcg PO (9) DVT prophylaxis: Heparin 5000 units Q12h Subjective Reports feeling the same as yesterday. Sitll with headache and some dysuria. Review of Systems Review of Systems: All systems reviewed & are unremarkable except as noted in HPI & below Physical Exam Constitutional: WD/WN, vitals as above + morbidly obese; no acute distress Eyes: PERRL, conjunctivae normal, anicteric sclerae ENMT: external ear and nose normal, oropharynx normal Neck: trachea midline, no thyromegaly Respiratory: normal respiratory effort, lungs clear to auscultation no respiratory distress Cardiovascular: RRR, no murmur, no edema Heart Sounds: no gallop and no cardiac rub Gastrointestinal (Abdomen): Inspection/Auscultation: abdomen normal to inspection and normal bowel sounds Percussion/Palpation: + abdomen tender (Lower quadrant); no hepatosplenomegaly and no abdominal mass Musculoskeletal: Head/Neck/Chest: normocephalic and neck supple Skin: no rashes, warm and dry Neurologic: moves all extremities; no focal motor deficits Psychiatric: A+Ox3, euthymic affect Results & Data Vital Signs (Past 12 Hours) Vital Signs Temp Pulse Resp BP Pulse Ox 11/02/18 07:26 36.6 C 95 H 20 129/78 95 (1) UTI (urinary tract infection) Encounter type: subsequent encounter Indwelling urinary catheter type: unspecified Urinary tract infection type: catheter-associated UTI Qualified Code(s): T83.511D - Infection and inflammatory reaction due to indwelling urethral catheter, subsequent encounter; N39.0 - Urinary tract infection, site not specified (2) Sepsis Sepsis type: sepsis due to unspecified organism Qualified Code(s): A41.9 - Sepsis, unspecified organism (3) Vaginitis Chronicity: acute Qualified Code(s): N76.0 - Acute vaginitis (4) Spina bifida Spinal region: unspecified Presence of hydrocephalus: unspecified hydrocephalus presence Qualified Code(s): Q05.9 - Spina bifida, unspecified (5) Hypothyroid Hypothyroidism type: acquired Qualified Code(s): E03.9 - Hypothyroidism, unspecified
[2018-11-02] MEDS: PHENAZOPYRIDINE HCL 100 MG TAB PO SCH ×2 (14:04→21:13)
--- NOTE | 2018-11-02 16:23 | Infectious Disease Progress Nt ---
Date of Service November 02, 2018 Assessment & Plan (1) UTI (urinary tract infection): Patient with urinary tract infection associated with indwelling suprapubic catheter with highly resistant pseudomonas aeruginosa. Patient to be treated with IV Zerbaxa for 10-day course. Would recommend fluconazole orally for Melida vaginitis. Will follow. (2) Pseudomonas aeruginosa infection: (3) Melida vaginitis: Subjective Patient seen in follow-up for Pseudomonas urinary tract infection. Continues to complain of mild lower quadrant abdominal pain. Remains afebrile. No other new complaints. Review of Systems Review of Systems: All systems reviewed & are unremarkable except as noted in HPI & below Physical Exam Constitutional: WD/WN, vitals as above + morbidly obese; no acute distress Eyes: PERRL, conjunctivae normal, anicteric sclerae ENMT: external ear and nose normal, oropharynx normal Neck: trachea midline, no thyromegaly Respiratory: normal respiratory effort, lungs clear to auscultation no respiratory distress Cardiovascular: RRR, no murmur, no edema Heart Sounds: no gallop and no cardiac rub Gastrointestinal (Abdomen): Inspection/Auscultation: abdomen normal to inspection and normal bowel sounds Percussion/Palpation: + abdomen tender (Lower quadrant); no hepatosplenomegaly and no abdominal mass Musculoskeletal: Head/Neck/Chest: normocephalic and neck supple Skin: no rashes, warm and dry Neurologic: moves all extremities; no focal motor deficits Psychiatric: A+Ox3, euthymic affect Results & Data Vital Signs (Past 12 Hours) Vital Signs Temp Pulse Resp BP Pulse Ox 11/02/18 15:37 36.6 C 103 H 22 138/80 96 11/02/18 07:26 36.6 C 95 H 20 129/78 95 Laboratory Results Short CBC 11/02/18 Range/Units 07:51 WBC 5.43 (4.8-10.8) K/uL Hgb 11.4 L (12.0-16.0) g/dL Hct 35.7 L (37-47) % Plt Count 217 (130-400) K/uL BMP 11/02/18 07:51 Sodium 143 Potassium 2.8 L Chloride 109 H Carbon Dioxide 26 BUN 9 Creatinine 0.61 Glucose 139 H Calcium 8.5 Diagnostic Findings Microbiology 10/31/18 20:59 Blood Aerobic Blood Culture - Preliminary No growth in Aerobic bottle after 24 hours. 10/31/18 20:59 Blood Anaerobic Blood Culture - Final 10/31/18 21:18 Blood Aerobic Blood Culture - Preliminary No growth in Aerobic bottle after 24 hours. 10/31/18 21:18 Blood Anaerobic Blood Culture - Preliminary No growth in Anaerobic bottle after 24 hours. (1) UTI (urinary tract infection) Encounter type: subsequent encounter Indwelling urinary catheter type: unspecified Urinary tract infection type: catheter-associated UTI Qualified Code(s): T83.511D - Infection and inflammatory reaction due to indwelling urethral catheter, subsequent encounter; N39.0 - Urinary tract infection, site not specified
[2018-11-02] MEDS: ACETAMINOPHEN 325 MG TAB PO PRN (21:12)
[2018-11-02] MEDS: TRAZODONE HCL 50 MG TAB PO SCH (21:13)
[2018-11-02] MEDS: FAMOTIDINE 20 MG TAB PO SCH (21:16)
[2018-11-03] MEDS: ONDANSETRON INJ 2 MG/ML 2 ML VIAL IV PRN (05:38)
[2018-11-03] MEDS: CEFTOLOZANE IV SCH (06:09)
[2018-11-03] MEDS: TAZOBACTAM IV SCH (06:09)
[2018-11-03] MEDS: LEVOTHYROXINE SODIUM 88 MCG TABLET PO SCH (06:10)
[2018-11-03 07:11] LABS: Calcium 8.4 mg/dl (8.5-10.1); Creatinine Clr Calc Pharmacy 123.6 ml/min; Est GFR (African American) 138.5; Est GFR (Non-African American) 119.5; Potassium 3.3 mmol/L (3.5-5.1)
[2018-11-03] MEDS: HEPARIN 100 UNIT/ML 5ML FLUSH FLUSH PRN (07:16)
[2018-11-03] MEDS: ACETAMINOPHEN 325 MG TAB PO PRN (07:16)
[2018-11-03] MEDS: FLUTICASONE/SALMETEROL (ADVAIR) 500/50 INH 14 PUFF INH SCH (07:27)
[2018-11-03] MEDS: HYOSCYAMINE SULFATE 0.125 MG TAB PO SCH (07:27)
[2018-11-03] MEDS: GABAPENTIN 300 MG CAP PO SCH (07:28)
[2018-11-03] MEDS: buPROPion HCl 100 MG TABLET PO SCH (07:28)
[2018-11-03] MEDS: FUROSEMIDE 20 MG TAB PO SCH (07:28)
[2018-11-03] MEDS: MONTELUKAST SODIUM 10 MG TABLET PO SCH (07:29)
[2018-11-03] MEDS: VENLAFAXINE HCL XR 150 MG CAPXR PO SCH (07:29)
[2018-11-03] MEDS: CYANOCOBALAMIN 500 MCG TABLET (VITAMIN B-12) PO SCH (07:29)
[2018-11-03] MEDS: POTASSIUM CHLORIDE 20 MEQ TABCR PO SCH (07:29)
[2018-11-03] MEDS: METOCLOPRAMIDE HCL 10 MG TABLET PO SCH (07:29)
[2018-11-03] MEDS: PRENATAL VITAMIN 1 TAB PO SCH (07:29)
[2018-11-03] MEDS: PANTOprazole 40 MG TAB PO SCH (07:29)
[2018-11-03] MEDS: PHENAZOPYRIDINE HCL 100 MG TAB PO SCH (07:30)
[2018-11-03] MEDS: BENZTROPINE MESYLATE 1 MG/ML 2 ML AMP IM SCH (07:31)
[2018-11-03] MEDS: HEPARIN SOD 5,000 UNIT/0.5 ML VIAL SQ SCH (07:31)
[2018-11-03 07:32] VITALS: BP 108/74; PULSE 89; TEMP 97.5; O2SAT 96
[2018-11-03] MEDS: QUDEXY PO SCH (07:33)
[2018-11-03] MEDS: REXULTI PO SCH (07:33)
[2018-11-03] MEDS: AMITIZA PO SCH (07:33)
[2018-11-03] MEDS: MEXILETINE HCL PO SCH (07:34)
[2018-11-03] MEDS: POLYETHYLENE (MIRALAX) 17 GM PACK PO SCH (07:34)
[2018-11-03] MEDS: INSULIN ASPART 100 UNITS/ML 3 ML PEN SC SCH (08:39)
[2018-11-03] MEDS ORDERED: MICONAZOLE NITRATE POWDER 43 GM ONE (08:43)
[2018-11-03] MEDS ORDERED: MICONAZOLE NITRATE POWDER 43 GM EXT PRN (08:59)
[2018-11-03] MEDS ORDERED: FLUCONAZOLE 50 MG TAB PO SCH (09:00)
--- NOTE | 2018-11-03 13:12 | Discharge Summary ---
Date of Service November 03, 2018 Admission HPI Per Admitting Provider The patient is a 33-year-old female with a past medical history including spina bifida, morbid obesity, schizoaffective disorder, chronic suprapubic catheter and frequent UTIs, who presents to the emergency department after being instructed to do so by Dr. Sauceda from infectious disease. Principal Diagnosis Urinary tract infection Discharge Exam Constitutional WD/WN, vitals as above + morbidly obese; no acute distress Eyes PERRL, conjunctivae normal, anicteric sclerae ENMT external ear and nose normal, oropharynx normal Neck trachea midline, no thyromegaly Respiratory normal respiratory effort, lungs clear to auscultation no respiratory distress Cardiovascular RRR, no murmur, no edema Heart Sounds: no gallop and no cardiac rub Gastrointestinal (Abdomen) Inspection/Auscultation: abdomen normal to inspection and normal bowel sounds Percussion/Palpation: + abdomen tender (Lower quadrant); no hepatosplenomegaly and no abdominal mass Musculoskeletal Head/Neck/Chest: normocephalic and neck supple Skin no rashes, warm and dry Neurologic moves all extremities; no focal motor deficits Psychiatric A+Ox3, euthymic affect Discharge Data Allergies Allergy/AdvReac Type Severity Reaction Status Date / Time chlorhexidine Allergy Severe Rash Verified 10/31/18 23:39 adhesive Allergy Intermediate TAPE- HIVES Verified 10/31/18 23:39 ceftriaxone Allergy Intermediate rash, Has Verified 10/31/18 23:39 tolerated cefepime and Zerbaxa Cipro Allergy Intermediate hives Verified 01/11/18 17:31 ciprofloxacin Allergy Intermediate hives Verified 10/31/18 23:39 imipenem Allergy Intermediate PT REPORTS Verified 10/31/18 23:39 ITCHING latex Allergy Intermediate hives Verified 10/31/18 23:39 levofloxacin Allergy Intermediate rash,HEARD Verified 10/31/18 23:39 VOICES linezolid Allergy Intermediate rash Verified 10/31/18 23:39 morphine Allergy Intermediate Rash Verified 10/31/18 23:39 nitrofurantoin Allergy Intermediate rash and Verified 10/27/18 14:27 hives piperacillin Allergy Intermediate SEVERE Verified 10/27/18 14:27 RASH, HIVES tazobactam Allergy Intermediate SEVERE Verified 10/27/18 14:27 RASH, HIVES trimethoprim Allergy Intermediate Hives Verified 10/27/18 14:27 vancomycin Allergy Intermediate rash Verified 10/27/18 14:27 amikacin Allergy Unknown PER DR Verified 10/27/18 14:27 ROBINS,RXN WAS TO ZOSYN NOT AMKrash;hives Bactrim Allergy Unknown Hives Verified 01/11/18 17:31 sulfamethoxazole Allergy Unknown Hives Verified 10/27/18 14:27 dextrose 5 % in water Allergy Hives Verified 10/27/18 14:27 [From Zyvox] buspirone AdvReac Severe HALLUCINATI Verified 10/27/18 14:27 ONS Consultations 10/31/18 22:26 ED Decision to Admit Stat 11/01/18 01:39 Consult Infectious Diseases Routine Hospital Course (1) UTI (urinary tract infection): She was started on Zerbexa by Dr. Sauceda from infectious disease as outpatient on 10/30, which has been continued. - Continued Zerbexa - Blood cultures from 10/31 were negative. - While admitted, she had no fevers, no leukocytosis. - Consulted Dr. Sauceda - Appreciate recs - 10-days Zerbaxa and 1 week of fluconazole - Discharged to continue the Zerbaxa at home. Follow up with Dr. Sauceda outpatient. (2) Vaginitis: Patient has been recently diagnosed with yeast vaginitis, but her mother reports she had not been able to get the pharmacy to get the Diflucan started. - Started Diflucan while inpatient - Discussed with Dr. Sauceda - 1 week total course. - Given script for 4 more days to finish course. Will follow with Dr. Sauceda. (3) Schizoaffective disorder: Appears to be at baseline mental status. - Continue usual medications. (4) Spina bifida: - Continue usual medications and supports. (5) Morbid obesity: Noted. (6) Chronic suprapubic catheter: Serves as a source of her recurrent urinary tract infections. (7) Hypothyroid: TSH was 2.4 in 2018. No signs/symptoms of hypo-/hyperthyroidism. - Continue levothyroxine sodium 80 mcg PO (8) DVT prophylaxis: Heparin 5000 units Q12h Total Time Total Time Spent Total Time Spent (In Minutes): 35 Total Time Includes: Examination of the Patient and Communication With Other Providers Discharge Plan Discharge Items Patient Disposition: Home - Self-Care Reason For Visit: UTI,SEPSIS Discharge Diagnosis: Urinary tract infection Discharge Goals: Decrease discomfort and Improve disease control Activity: Resume your previous activity Non-emergency contact: Primary Care Provider and Specialist Call non-emergency contact if: your temperature is above 100.5 Follow-up/Referrals: Sourav Sauceda MD [Family Provider] - (Please see Dr. Sauceda at the end of your antibiotic course.) Gela Boone MD [Primary Care Provider] - Diet: Regular Addtl Provider Instructions: Ms. Chairez, You were admitted for a urinary tract infection. You were treated with the home antibiotics you were on. Please keep taking these until they are gone. Please see Dr. Sauceda. Please take the fluconazole for 4 more days. This will be a total of a week course. This is what Dr. Sauceda recommended. Please call him with any further issues. Prescriptions: New phenazopyridine [Pyridium] 100 mg tablet 100 mg PO TID Qty: 6 RF: 0 fluconazole 100 mg tablet 100 mg PO DAILY Qty: 4 RF: 0 Continued chromium picolinate 200 mcg tablet 200 mcg PO TID RF: 0 polyethylene glycol 3350 17 gram powder in packet 17 g PO TID RF: 0 famotidine 40 mg tablet 40 mg PO HS RF: 0 venlafaxine 150 mg capsule,extended release 24hr 150 mg PO QAM RF: 0 dihydroergotamine [D.H.E.45] 1 mg/mL solution 1 mg IM UD PRN (Reason: Migraine Headache) RF: 0 levothyroxine 88 mcg tablet 88 mcg PO DAILYBB RF: 0 cyanocobalamin (vitamin B-12) 500 mcg Tablet 500 mcg PO QAM RF: 0 mexiletine 150 mg capsule 300 mg PO TID RF: 0 pantoprazole 40 mg tablet,delayed release (DR/EC) 40 mg PO BID RF: 0 hyoscyamine sulfate [Levsin] 0.125 mg tablet 0.125 mg PO TIDM RF: 0 trazodone 150 mg tablet 150 mg PO HS RF: 0 montelukast 10 mg tablet 10 mg PO DAILY RF: 0 furosemide 20 mg tablet 20 tab PO BID PRN (Reason: Edema) RF: 0 albuterol sulfate [ProAir HFA] 90 mcg/actuation Hfa Aerosol Inhaler 2 puff INHALATION DAILY PRN (Reason: Shortness Of Breath Or Wheezing) RF: 0 ondansetron 4 mg tablet,disintegrating 4 mg PO Q6 PRN (Reason: Nausea And Vomiting) RF: 0 metoclopramide HCl [Reglan] 10 mg tablet 10 mg PO BID RF: 0 ketamine 100 mg/mL Solution 1 - 2 spray Intranasal DIRECTED MDD 20 PRN (Reason: Migraine Headache) RF: 0 Probiotic 3 billion cell Capsule 1 cap PO TID RF: 0 Multi 27-800 mg-mcg Tablet 1 tab PO DAILY RF: 0 potassium chloride 20 mEq tablet,ER particles/crystals 20 meq PO BID PRN (Reason: prn) RF: 0 Botox 100 unit Recon Soln 1 dose IM Q90D RF: 0 nystatin 100,000 unit/gram ointment 1 appln TOP BID PRN (Reason: Skin Irritation) RF: 0 Ajovy 1 dose INJ MONTHLY RF: 0 gabapentin 100 mg Capsule 300 mg PO TID RF: 0 haloperidol 2 mg tablet 2 mg PO Q12 PRN (Reason: PRN) RF: 0 topiramate [Qudexy XR] 100 mg capsule,sprinkle,ER 24hr 200 mg PO DIRECTED RF: 0 metformin 500 mg Tablet 500 mg PO QPM RF: 0 cetirizine [Zyrtec] 10 mg Tablet 10 mg PO DAILY PRN (Reason: while on antibiotic) RF: 0 fluticasone propion-salmeterol [Advair Diskus] 500-50 mcg/dose Blister With Device 1 inh INHALATION BID RF: 0 Amitiza 24 mcg Capsule 24 mcg PO BID RF: 0 benztropine 2 mg/2 mL Solution 1 mg IM BID RF: 0 Rexulti 2 mg Tablet 2 mg PO QAM RF: 0 levalbuterol HCl [Xopenex] 0.63 mg/3 mL Solution For Nebulization 0.63 mg INHALATION TID PRN (Reason: sob) RF: 0 bupropion HCl 100 mg Tablet 100 mg PO QAM RF: 0 ceftolozane-tazobactam 1.5 gram Recon Soln 1.5 g IV DIRECTED RF: 0 hydroxyzine HCl 25 mg tablet 25 mg PO QID RF: 0 Stand-Alone Forms: [facility] Discharge Orders: Discharge Order (Routine); Ordered 11/03/18 Ordered By: Missael Washington Admission Data Admit Date/Time: 11/01/18 00:56 Attending Provider: Missael Washington Admit Provider: Nav Galvan Primary Care Provider: Gela Boone Other Providers: Sourav Sauceda ; Missael Washington Service: Medical Other Interventions: Discharge Summary Assessment (RN) Last Done: 11/03/18 10:58 DC Date/Time DO NOT enter until pt leaves facility: 11/03/18 11:39
== END 2018-11-03 11:39 | disposition home health service (06) ==
LOC: ED 19:28 → 4E 19:28 → SUATTDRO 11-01 00:56 → 4E 11-01 01:19

== ENCOUNTER 2018-11-09 08:36 | Observation (INO) ==
[2018-11-09] MEDS ORDERED: MoRPHine SULFATE 4 MG/ML 1 ML CARP\\VIAL IV STA ×2 (09:04→10:39)
[2018-11-09] MEDS ORDERED: ONDANSETRON INJ 2 MG/ML 2 ML VIAL IV STA (09:04)
[2018-11-09] MEDS ORDERED: SODIUM CHLORIDE 0.9% 1000ML 500 ML IV ONE (09:04)
--- NOTE | 2018-11-09 09:25 | XRay Report ---
XR chest 1V portable CLINICAL HISTORY: epigastric pain that radiates to head COMPARISON STUDY: Chest radiograph October 31, 2018. FINDINGS: A right ventriculopleural shunt catheter is partially imaged. An old shunt catheter is note d. This is unchanged. Lung volumes are mildly diminished. This is also unchanged. No pneumothorax or pleural effusion is noted. Cardiomediastinal silhouette is stable. Appearance of the chest is unchang ed. IMPRESSION: No acute cardiopulmonary findings. No change in appearance of the chest. Electronically signed by: Ryan Boone M.D. 11/09/2018 9:23 AM
[2018-11-09 10:10] LABS: Basophils # (auto) 0.02 K/uL (0-0.2); Basophils % (auto) 0.3 %; Eosinophils # (auto) 0.24 K/uL (0-0.5); Eosinophils % (auto) 3.9 %; Hematocrit (blood only) 38.5 % (37-47); Hemoglobin 12.1 g/dL (12.0-16.0); Immature Granulocytes # (auto) 0.01 K/uL (0.00-0.02); Immature Granulocytes % (auto) 0.2 %; Lymphocytes # (auto) 1.84 K/uL (1.2-3.4); Lymphocytes % (auto) 30.2 %; Mean Corpuscular Hgb Conc 31.4 g/dL (32-36); Mean Corpuscular Volume 98.7 fL (80-100); Mean Platelet Volume 10.1 fL (7.4-10.4); Monocytes % (auto) 9.9 %; Neutrophils # (auto) 3.38 K/uL (1.4-6.5); Neutrophils % (auto) 55.5 %; Platelet Count 266 K/uL (130-400); RDW Standard Deviation 57.4 fL (36.4-46.3); White Blood Count 6.09 K/uL (4.8-10.8)
[2018-11-09 10:27] LABS: Alanine Aminotransferase 53 U/L (12-78); Albumin Level 2.9 gm/dl (3.4-5.0); Aspartate Aminotransferase 32 U/L (15-37); BUN Creatinine Ratio 15.2 (10-20); Blood Urea Nitrogen 10 mg/dl (7-18); Calcium 8.7 mg/dl (8.5-10.1); Carbon Dioxide 27 mmol/L (21-32); Chloride 108 mmol/L (98-107); Est GFR (African American) 137.1; Est GFR (Non-African American) 118.3; Glucose 137 mg/dl (70-99); Magnesium 1.9 mg/dl (1.8-2.4); Potassium 3.7 mmol/L (3.5-5.1); Sodium 140 mmol/L (136-145)
[2018-11-09 10:32] LABS: Albumin Globulin Ratio 0.7 (0.9-2); Alkaline Phosphatase 96 U/L (45-117); Bilirubin,Total 0.3 mg/dl (0.2-1); Globulin 4.2 gm/dl (2.5-4.0); Total Protein 7.1 gm/dl (6.4-8.2); Troponin I < 0.015 ng/ml (0-0.045)
[2018-11-09 10:42] LABS: Appearance Urine Clear (Clear); Bacteria Urine Automated Negative (Negative); Bilirubin Urine Negative (Negative); Blood Urine Negative (Negative); Color Urine Yellow; Epithelial Cell Urine Auto >30 /lpf (0-5); Glucose Urine UA Negative (Negative); Ketones Urine Negative (Negative); Leukocyte Esterase Urine 2+ (Negative); Nitrite Urine Negative (Negative); Protein Urine Negative (Negative); RBC Urine Automated 0-4 /hpf (0-4); Specific Gravity Urine 1.015 (1.000-1.030); Urobilinogen Urine Negative (Negative)
[2018-11-09] MEDS ORDERED: OPTIRAY 320 125ml IV PRN (13:02)
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
--- NOTE | 2018-11-09 13:14 | CT Scan Report ---
CT angio chest PE protocol CLINICAL HISTORY: 33 years-old Female presenting with atypical chest pain, epigastric discomfort, his tory of pulmonary embolus. TECHNIQUE: Multidetector CT angiography of the chest was performed after administration of intravenou s contrast. 3-D volumetric and/or maximum intensity projection (MIP) images were subsequently reconst ructed for review. IV contrast: 93 mL of Optiray 320. One or more dose lowering techniques were used consistent with the principles of ALARA (as low as reasonably achievable), including automatic exposu re control, mA or kV adjustment to individual patient size, and/or use of iterative reconstruction. COMPARISON: 05/07/2018. CT DOSE (mGy.cm): The estimated cumulative dose is 894.20 mGy.cm. 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 Cholecystectomy clips noted. Pulmonary vasculature: The study is suboptimal for the assessment of the pulmonary vascular tree secondary to timing of the contrast bolus and respiratory motion artifact. Acute pulmonary embolus in the lobar artery to the li ngula and subsegmental lingular pulmonary arteries. Allowing for image quality, no additional embolus is evident. Main pulmonary artery is not enlarged. No flattening of the interventricular septum. No intracardiac filling defect. Reflux of contrast into the IVC and hepatic veins. This likely indicates elevated right heart pressure. Remaining chest: Soft tissues: Normal thyroid. A ventriculopleural catheter descends along the right chest wall and te rminates in the posterior right costophrenic sulcus. Right internal jugular Mediport terminates at th e superior cavoatrial junction. No axillary, supraclavicular, mediastinal, or hilar lymphadenopathy. Normal aorta. Normal heart size. Small right pleural effusion related to the ventriculopleural cathet er. Hyperdensity within the gastric fundus likely medication administration (series 4 image 26). Lungs and airways: No pneumothorax. Central airways patent. Pulmonary arteries are not significantly enlarged relative to adjacent bronchi. No interlobular septal thickening. Bandlike and dependent cornel bronchovascular consolidation and mild volume loss in the right lower lobe as well as in the left low er lobe to a lesser extent. No other focal nodule or infiltrate. Musculoskeletal: Normal osseous structures. IMPRESSION: 1. Acute pulmonary embolus in the lobar and subsegmental pulmonary arteries to the lingula. No CT ev idence of right heart strain. 2. However, there is evidence of elevated right heart pressure evidenced by reflux of contrast into the IVC and hepatic veins. 3. Small right pleural effusion and extensive right basilar atelectasis likely related to the ventri culopleural catheter. The report will be called/faxed according to standard departmental protocol for a critical finding. Electronically signed by: Chris Blanco M.D. 11/09/2018 1:12 PM
[2018-11-09 13:45] LABS: INR 1.1 (0.9-1.1); Partial Thromboplastin Time 27.9 Seconds (21.0-31.0); Prothrombin Time 11.4 Seconds (9.0-12.0)
--- NOTE | 2018-11-09 14:24 | History & Physical Report ---
Date of Service November 09, 2018 Assessment & Plan (1) Pulmonary embolism: Patient with a pulmonary embolism with a previous history of the same initially at that time felt to be from control pills at that time treated with Xarelto. No signs of right heart strain we will institute Eliquis therapy as the patient states she cannot remember why but she did not like Xarelto at the time she is not hypoxic (2) Pseudomonas aeruginosa infection: Multiple recurrent urinary tract infections associate with chronic indwelling urinary catheter she is completing cephalization-tazobactam, this was ordered by infectious disease she reportedly has 3 additional doses left (3) Schizoaffective disorder: Patient is maintained on benztropine bupropion gabapentin, Haldol hydroxyzine ketamine nasal spray for headaches facility topiramate trazodone venlafaxine, Connie is slightly sedated but she seems like her mood is stable (4) HTN (hypertension): His hypertension is unusual in my recollection for this patient will continue to follow and not institute therapy unless she is endorgan complaints (5) Neurogenic bladder: Patient is a chronic indwelling catheter due to neurogenic bladder from spina bifida she currently is on antibiotic therapy. Likely wondering about therapy is complete which will be 3days her catheter will be changed. History of Present Illness Primary Care Provider: Gela Boone MD he patient is a 33-year-old female with a past medical history including spina bifida, morbid obesity, schizoaffective disorder, chronic suprapubic catheter and frequent UTIs including pseudomonas MRSA and Citrobacter species, currently on home treatment of iv antibiotics via port for multidrug resistent uti who presentes with lethargy and fatigue after discharge on 11/03/18. she is found to have acute pulmonary embolus in the lobar and subsegmental pulmonary arteries in the lingula no evidence of right heart strain elevated right heart pressures small right pleural effusion and extensive basilar atelectasis. Patient is tolerated Xarelto in the past however wishes to be on a different agent which is Eliquis therapy to initiate treatment. The patient does have a family engagement and wishes to hopefully have this be a short hospital stay if things are stable Allergies Allergy/AdvReac Type Severity Reaction Status Date / Time chlorhexidine Allergy Severe Rash Verified 11/09/18 09:13 adhesive Allergy Intermediate TAPE- HIVES Verified 11/09/18 09:13 ceftriaxone Allergy Intermediate rash, Has Verified 11/09/18 09:13 tolerated cefepime and Zerbaxa Cipro Allergy Intermediate hives Verified 01/11/18 17:31 ciprofloxacin Allergy Intermediate hives Verified 11/09/18 09:13 imipenem Allergy Intermediate PT REPORTS Verified 11/09/18 09:13 ITCHING latex Allergy Intermediate hives Verified 11/09/18 09:13 levofloxacin Allergy Intermediate rash,HEARD Verified 11/09/18 09:13 VOICES linezolid Allergy Intermediate rash Verified 11/09/18 09:13 morphine Allergy Intermediate Rash Verified 11/09/18 09:13 nitrofurantoin Allergy Intermediate rash and Verified 11/09/18 09:13 hives piperacillin Allergy Intermediate SEVERE Verified 11/09/18 09:13 RASH, HIVES tazobactam Allergy Intermediate SEVERE Verified 11/09/18 09:13 RASH, HIVES trimethoprim Allergy Intermediate Hives Verified 11/09/18 09:13 vancomycin Allergy Intermediate rash Verified 11/09/18 09:13 amikacin Allergy Unknown PER DR Verified 11/09/18 09:13 JULIENNE,RXN WAS TO ZOSYN NOT AMKrash;hives Bactrim Allergy Unknown Hives Verified 01/11/18 17:31 sulfamethoxazole Allergy Unknown Hives Verified 11/09/18 09:13 dextrose 5 % in water Allergy Hives Verified 11/09/18 09:13 [From Zyvox] buspirone AdvReac Severe HALLUCINATI Verified 11/09/18 09:13 ONS Home Medications Home Medications Medication Instructions Recorded Confirmed Type Multi 1 tab PO DAILY 02/17/18 11/09/18 History Probiotic 1 cap PO TID 02/17/18 11/09/18 History albuterol sulfate [ProAir HFA] 2 puff INHALATION DAILY PRN 02/17/18 11/09/18 History cyanocobalamin (vitamin B-12) 500 mcg PO QAM 02/17/18 11/09/18 History dihydroergotamine [D.H.E.45] 1 mg IM UD PRN 02/17/18 11/09/18 History famotidine 40 mg PO HS 02/17/18 11/09/18 History furosemide 20 tab PO BID PRN 02/17/18 11/09/18 History hyoscyamine sulfate [Levsin] 0.125 mg PO TIDM 02/17/18 11/09/18 History ketamine 1 - 2 spray INTRANASAL DIRECTED 02/17/18 11/09/18 History PRN MDD 20 levothyroxine 88 mcg PO DAILYBB 02/17/18 11/09/18 History metoclopramide HCl [Reglan] 10 mg PO BID 02/17/18 11/09/18 History mexiletine 300 mg PO TID 02/17/18 11/09/18 History montelukast 10 mg PO DAILY 02/17/18 11/09/18 History ondansetron 4 mg PO Q6 PRN 02/17/18 11/09/18 History pantoprazole 40 mg PO BID 02/17/18 11/09/18 History polyethylene glycol 3350 17 g PO TID 02/17/18 11/09/18 History trazodone 150 mg PO HS 02/17/18 11/09/18 History venlafaxine 150 mg PO QAM 02/17/18 11/09/18 History Botox 1 dose IM Q90D 04/20/18 11/09/18 History haloperidol 2 mg PO Q12 PRN 07/11/18 11/09/18 History topiramate [Qudexy XR] 200 mg PO DIRECTED 07/11/18 11/09/18 History metformin 500 mg PO QPM 08/24/18 11/09/18 History cetirizine [Zyrtec] 10 mg PO DAILY PRN 08/28/18 11/09/18 History chromium picolinate 200 mcg tablet 200 mcg PO TID tab 10/05/18 11/09/18 History potassium chloride ER 20 mEq 20 meq PO BID PRN 10/05/18 11/09/18 History tablet,extended release(part/cryst) Amitiza 24 mcg PO BID 10/11/18 11/09/18 History Rexulti 2 mg PO QAM 10/11/18 11/09/18 History benztropine 1 mg IM BID 10/11/18 11/09/18 History bupropion HCl 100 mg PO QAM 10/11/18 11/09/18 History fluticasone propion-salmeterol 1 inh INHALATION BID 10/11/18 11/09/18 History [Advair Diskus] levalbuterol HCl [Xopenex] 0.63 mg INHALATION TID PRN 10/11/18 11/09/18 History Ajovy 1 dose INJ MONTHLY 10/13/18 11/09/18 History gabapentin 300 mg PO TID 10/13/18 11/09/18 History nystatin 1 appln TOP BID PRN 10/13/18 11/09/18 History ceftolozane-tazobactam 1.5 g IV DIRECTED 10/31/18 11/09/18 History hydroxyzine HCl 25 mg PO QID 11/01/18 11/09/18 History Past Med/Surg History Social History Preferred Language: Lithuanian Communication Ability: Effective Visual Impairment: No Limitations Hearing Ability: Normal Beliefs That Will Affect Care: None marital status: Single Current Living Situation: Family current occupational status: disabled Feels Safe at Home: Yes Smoking Status: Never smoker Second Hand Exposure: No Hx Alcohol Use: No Hx Substance Use: No Review of Systems Review of Systems: ROS: well nourished well developed. No double vision blurry vision No problems with speech or swallowing No palpitations, chest pain or pressure Feels short of breath but he cannot take a deep breath No abdominal pain nausea vomiting diarrhea changes in appetite or weight No burning urine urine frequency or changes in color has a chronic indwelling catheter No focal joint pain or muscle pain bilateral below-knee amputations No skin rashes or oral lesions No unusual bruising or bleeding No focused back pain or numbness or loss of strength No changes in memory or confusion, due to her polypharmacy she is always slightly sedate Physical Exam Physical Exam: The patient appeared chronically ill but in her usual state Vital signs as documented. Blood pressure is elevated on intake we will continue to follow Head exam is unremarkable. normocephalic, atraumatic Neck is without jugular venous distension, trachea is midline she has no lymphademopathy Lungs are clear but decreased excursion due to body habitus no rubs are heard Cardiac exam reveals Rhythm is regular. First and second heart sounds normal. Abdominal exam reveals normal bowel sounds, no masses, she is dull not tympanitic Extremities are bilateral BKA's they are well-healed with no signs of skin irritation Neurologic exam is A&Ox3, no focal deficits Psychologically seems medicated Skin is warm / Dry Results & Data Vital Signs (Past 12 Hours) Vital Signs Temp Pulse Pulse Resp BP BP Pulse Ox 11/09/18 13:35 93 H 20 143/91 H 94 11/09/18 11:56 90 22 140/85 95 11/09/18 11:03 94 H 24 133/84 94 11/09/18 09:58 94 H 20 103/79 97 11/09/18 08:41 36.6 C 97 H 16 132/84 95 CTA 1. Acute pulmonary embolus in the lobar and subsegmental pulmonary arteries to the lingula. No CT evidence of right heart strain. 2. However, there is evidence of elevated right heart pressure evidenced by reflux of contrast into the IVC and hepatic veins. 3. Small right pleural effusion and extensive right basilar atelectasis likely related to the ventriculopleural catheter.
[2018-11-09] MEDS: APIXABAN 5 MG TABLET PO SCH ×3 (15:53→22:46)
[2018-11-09] MEDS ORDERED: APIXABAN 2.5 MG TAB PO ONE (15:54)
[2018-11-09] MEDS ORDERED: FUROSEMIDE 40 MG TAB PO PRN (17:22)
[2018-11-09] MEDS ORDERED: NON-FORMULARY MEDICATION (Chromium Picolinate 200 MCG) PO SCH (17:22)
[2018-11-09] MEDS ORDERED: CETIRIZINE HCL 10 MG TABLET PO PRN (17:22)
[2018-11-09] MEDS ORDERED: LEVALBUTEROL HCL 0.63 MG/3 ML NEB INH PRN (17:22)
[2018-11-09] MEDS ORDERED: HYDROmorphone INJ 0.5 MG/0.5 ML SYR IV PRN (17:22)
[2018-11-09] MEDS ORDERED: DIHYDROERGOTAMINE MESYLATE 1 MG/ML VIAL IM PRN (17:22)
[2018-11-09] MEDS ORDERED: ONDANSETRON 4 MG OD TAB PO PRN (17:22)
[2018-11-09] MEDS ORDERED: HydrALAZINE HCL 20 MG/ML VIAL IV PRN (17:22)
[2018-11-09] MEDS ORDERED: NYSTATIN OINT 15 GM TUBE EXT PRN (17:22)
[2018-11-09] MEDS ORDERED: ACETAMINOPHEN 325 MG TAB PO PRN (17:22)
[2018-11-09] MEDS ORDERED: BOTULINUM TOXIN TYPE A 100 UNIT VIAL IM SCH (17:22)
[2018-11-09] MEDS ORDERED: HALOPERIDOL 1 MG TAB PO PRN (17:22)
[2018-11-09] MEDS ORDERED: ALBUTEROL HFA 8 GM INHALER INH PRN (17:22)
[2018-11-09] MEDS ORDERED: [UNRECOGNIZED DRUG - OTHER] PRN (19:36)
[2018-11-09] MEDS ORDERED: METFORMIN HCL 500 MG TAB PO SCH (21:00)
[2018-11-09] MEDS: ONDANSETRON INJ 2 MG/ML 2 ML VIAL IV PRN (22:28)
[2018-11-09] MEDS ORDERED: CEFTOLOZANE IV SCH (22:30)
[2018-11-09] MEDS ORDERED: TAZOBACTAM IV SCH (22:30)
[2018-11-09] MEDS: TAZOBACTAM IV SCH (22:39)
[2018-11-09] MEDS: CEFTOLOZANE IV SCH (22:39)
[2018-11-09] MEDS: AMITIZA PO SCH (22:47)
[2018-11-09] MEDS: PANTOprazole 40 MG TAB PO SCH (22:48)
[2018-11-09] MEDS: METOCLOPRAMIDE HCL 10 MG TABLET PO SCH (22:48)
[2018-11-09] MEDS: FAMOTIDINE 20 MG TAB PO SCH (22:48)
[2018-11-09] MEDS: GABAPENTIN 300 MG CAP PO SCH (22:49)
[2018-11-09] MEDS: INSULIN ASPART 100 UNITS/ML 3 ML PEN SC SCH (22:49)
[2018-11-09] MEDS: TRAZODONE HCL 50 MG TAB PO SCH (22:50)
[2018-11-09] MEDS: POLYETHYLENE (MIRALAX) 17 GM PACK PO SCH (22:50)
[2018-11-09] MEDS: MEXILETINE HCL PO SCH (22:50)
[2018-11-09] MEDS: BENZTROPINE MESYLATE 1 MG/ML 2 ML AMP IM SCH (22:52)
[2018-11-09] MEDS: FLUTICASONE/SALMETEROL (ADVAIR) 500/50 INH 14 PUFF INH SCH (22:52)
[2018-11-09] MEDS: HYOSCYAMINE SULFATE 0.125 MG TAB PO SCH (22:53)
[2018-11-09] MEDS: LACTOBACILLUS ACIDOPHILUS (FLORANEX) TAB PO SCH ×2 (22:53→23:48)
[2018-11-09] MEDS: [UNRECOGNIZED DRUG - REMARK] SCH (23:49)
[2018-11-10] MEDS: LEVOTHYROXINE SODIUM 88 MCG TABLET PO SCH (06:18)
[2018-11-10] MEDS: TAZOBACTAM IV SCH (06:34)
[2018-11-10] MEDS: CEFTOLOZANE IV SCH (06:34)
[2018-11-10] MEDS: [UNRECOGNIZED DRUG - REMARK] SCH (07:27)
[2018-11-10] MEDS: AMITIZA PO SCH ×2 (07:27→21:10)
[2018-11-10] MEDS: TOPIRAMATE 100 MG PO SCH (07:27)
[2018-11-10 07:39] LABS: Hematocrit (blood only) 36.5 % (37-47); Hemoglobin 11.2 g/dL (12.0-16.0); Mean Corpuscular Hgb Conc 30.7 g/dL (32-36); Mean Corpuscular Volume 98.9 fL (80-100); Platelet Count 233 K/uL (130-400); RDW Coefficient of Variation 16.1 % (11.5-14.5); Red Blood Count 3.69 M/uL (4.2-5.4); White Blood Count 5.78 K/uL (4.8-10.8)
[2018-11-10] MEDS: ONDANSETRON INJ 2 MG/ML 2 ML VIAL IV PRN (08:08)
[2018-11-10 08:09] LABS: BUN Creatinine Ratio 14.8 (10-20); Creatinine Clr Calc Pharmacy 113.6 ml/min; Est GFR (African American) 137.8; Est GFR (Non-African American) 118.9; Potassium 3.2 mmol/L (3.5-5.1)
[2018-11-10] MEDS: FLUTICASONE/SALMETEROL (ADVAIR) 500/50 INH 14 PUFF INH SCH ×2 (08:09→21:14)
[2018-11-10] MEDS: MONTELUKAST SODIUM 10 MG TABLET PO SCH (08:10)
[2018-11-10] MEDS: VENLAFAXINE HCL XR 150 MG CAPXR PO SCH (08:10)
[2018-11-10] MEDS: PRENATAL VITAMIN 1 TAB PO SCH (08:10)
[2018-11-10] MEDS: LACTOBACILLUS ACIDOPHILUS (FLORANEX) TAB PO SCH ×3 (08:11→21:06)
[2018-11-10] MEDS: POLYETHYLENE (MIRALAX) 17 GM PACK PO SCH ×3 (08:11→18:46)
[2018-11-10] MEDS: HYOSCYAMINE SULFATE 0.125 MG TAB PO SCH ×3 (08:12→16:51)
[2018-11-10] MEDS: APIXABAN 5 MG TABLET PO SCH ×2 (08:13→21:05)
[2018-11-10] MEDS: BENZTROPINE MESYLATE 1 MG/ML 2 ML AMP IM SCH ×2 (08:14→21:16)
[2018-11-10] MEDS: CYANOCOBALAMIN 500 MCG TABLET (VITAMIN B-12) PO SCH (08:15)
[2018-11-10] MEDS: GABAPENTIN 300 MG CAP PO SCH ×3 (08:15→21:08)
[2018-11-10] MEDS: BuPROPion SR 100 MG TABCR PO SCH (08:15)
[2018-11-10] MEDS: MEXILETINE HCL PO SCH ×3 (08:16→21:10)
[2018-11-10] MEDS: PANTOprazole 40 MG TAB PO SCH ×2 (08:16→21:06)
[2018-11-10] MEDS: METOCLOPRAMIDE HCL 10 MG TABLET PO SCH ×2 (08:17→21:13)
[2018-11-10] MEDS: INSULIN ASPART 100 UNITS/ML 3 ML PEN SC SCH ×4 (08:19→21:20)
[2018-11-10] MEDS ORDERED: Nursing to Pharmacy Communication ONE (09:17)
[2018-11-10] MEDS ORDERED: PHENAZOPYRIDINE HCL 200 MG TAB PO PRN (09:19)
[2018-11-10] MEDS: HYDROCODONE/ACETAMOPHEN 5/325MG TAB PO PRN ×3 (09:36→23:40)
[2018-11-10] MEDS: POTASSIUM CHLORIDE 20 MEQ TABCR PO SCH ×3 (09:37→22:06)
[2018-11-10] MEDS: REXULTI 2 MG PO SCH (14:25)
[2018-11-10] MEDS ORDERED: PERFLUTREN LIPID MICROSPHERE (DEFINITY) IV ONE (14:58)
--- NOTE | 2018-11-10 16:26 | Ultrasound Report ---
US venous doppler LE CLINICAL HISTORY: 33 years-old Female presenting with PEs, history of bilateral below the knee amputa tions. TECHNIQUE: Real-time grayscale and color and spectral Doppler ultrasound imaging of the veins of the bilateral lower extremities was performed. Compression and augmentation were also utilized. COMPARISON: None. FINDINGS: Patient related factors limited evaluation. RIGHT: Common femoral vein: Patent. Greater saphenous vein (superficial): Patent. Deep femoral vein: Patent. Femoral vein: Patent. Popliteal vein: Poorly evaluated though grossly patent. Calf veins: Proximal portions grossly patent. LEFT: Common femoral vein: Patent. Greater saphenous vein (superficial): Patent. Deep femoral vein: Patent. Femoral vein: Patent. Popliteal vein: Grossly patent. Calf veins: Proximal portions grossly patent. Other: None. IMPRESSION: Allowing for patient related factors and suboptimal image quality, no evidence of deep venous thrombo sis. Electronically signed by: Chris Blanco M.D. 11/10/2018 4:24 PM
--- NOTE | 2018-11-10 16:40 | CT Scan Report ---
CT abd pelvis wo con CLINICAL HISTORY: 33 years-old Female presenting with recurrent UTIs, h/o stones; eval for stones, et c. TECHNIQUE: Multidetector CT of the abdomen and pelvis was performed without the use of intravenous co ntrast. IV contrast: None. One or more dose lowering techniques were used consistent with the princip les of ALA (as low as reasonably achievable), including automatic exposure control, mA or kV adjust ment to individual patient size, and/or use of iterative reconstruction. COMPARISON: 09/04/2018. CT DOSE (mGy.cm): The estimated cumulative dose is 3567.61 mGy.cm. FINDINGS: Second Chef topogram: Cholecystectomy clips. Lung bases: Tip of a central venous catheter noted in the right atrium. Ventricular pleural drain pos itioned in the right posterior costophrenic sulcus. Trace right pleural fluid. Dependent bandlike opa cities at the lung bases likely atelectasis. Liver: Normal morphology. Normal density. Biliary: No intrahepatic or extrahepatic biliary ductal dilatation. Gallbladder surgically absent. Pancreas: Normal noncontrast appearance. Spleen: Normal. Adrenal glands: Normal. Kidneys and ureters: Punctate nonobstructing left renal calculus. Cortical atrophy associated with pa renchymal calcification in the posterior aspect of the interpolar region of the left kidney. Overall diffuse left renal atrophy is also noted. No hydronephrosis. Mild left urothelial thickening with a m inimally flaccid left renal collecting system. Ureters nondistended. Bladder: Decompressed with a suprapubic catheter. Pelvic organs: Normal noncontrast appearance. Bowel: Moderate stool burden throughout mildly distended colon involving the ascending through the de scending colon. The appendix is normal. No bowel obstruction. Peritoneal cavity: No free fluid or intraperitoneal gas. Lymph nodes: No gross lymphadenopathy allowing for noncontrast technique. Vasculature: Normal noncontrast appearance. Abdominal wall: Subcutaneous course of the ventricular pleural catheter intact. Additional catheter c ourses along the anterior subcutaneous tissue of the chest and upper abdominal wall. This terminates in the subcutaneous tissue. This may represent an abandoned catheter. Musculoskeletal: Diffuse muscle atrophy. Suggest neurologic disease. Chronic dislocation of the hips. Congenital spina bifida in the lower lumbar spine with herniation of the thecal sac as on prior exam . IMPRESSION: 1. Moderate stool burden throughout the right and through the left colon suggests constipation. No b owel obstruction or other evidence of acute intra-abdominal pathology. 2. Chronic left urothelial thickening. No convincing evidence on the current exam for cystitis or up per tract infection allowing for noncontrast technique. 3. Punctate nonobstructing left renal calculus. 4. Left renal atrophy. Electronically signed by: Chris Blanco M.D. 11/10/2018 4:37 PM
--- NOTE | 2018-11-10 18:51 | Hospitalist Progress Note ---
Date of Service November 10, 2018 Assessment & Plan (1) Pulmonary embolism: 2017 had PEs - treated 6-9 months w/ xarelto w/o difficulty. Now with recurrent PEs. Echo pending to assess right heart pressures. Risk factors - prior VTE event. Bed-bound status. Recurrent hospital stays. Admitting MD placed her on eliquis 10mg BID. Do this for 1 week then 5mg BID thereafter. Lifelong anticoagulation in light of bed-bound status and recurrent VTE? Dopplers of legs obtained today - negative for any DVT. Present on Admission?: Yes (2) Pseudomonas aeruginosa infection: Complicated/catheter-associated. Multiple recurrent urinary tract infections associated with chronic indwelling urinary catheter. Finished 10-day course of zerbaxa. I ordered CT abd/pelvis to r/o stones, etc. She has left-sided stone in the renal pelvis. No other obstructing lesions. (3) Schizoaffective disorder: Cont all home meds (4) HTN (hypertension): BPs controlled at this time (5) Neurogenic bladder: Chronic indwelling catheter due to neurogenic bladder from spina bifida. Has suprapubic catheter. 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 Suspect some element of constipation contributing. Bowel regimen. MRCP coming up at [facility] [place] to r/o biliary tract disease as cause of pain. Has had extensive w/u for this by GI otherwise. Asked case management to do pharmacy check on cost of eliquis hopefully home tomorrow Subjective patient reports poor appetite, fatigue, fever (1 week ago) also w/ abdominal pain - present for months, worsened by eating no chest symptoms really no dyspnea mother continues to swap suprapubic catheter at least once weekly scheduled for MRCP later this summer in [place] due to ongoing abd pain remains on zerbaxa for pseudomonas UTI Review of Systems Constitutional: + fatigue and + anorexia; no fever and no chills Respiratory: no cough, no dyspnea and no pain on inspiration Cardiovascular: no chest pain and no orthopnea Gastrointestinal: + abdominal pain, + nausea and + constipation; no vomiting and no diarrhea/loose stools Physical Exam Constitutional: + morbidly obese; no acute distress and no altered mental status ENMT: external ear and nose normal, oropharynx normal Respiratory: normal respiratory effort, lungs clear to auscultation Cardiovascular: Rate/Rhythm: regular rate and regular rhythm Heart Sounds: normal S1 and normal S2; no murmur Vessels: posterior tibial pulses present and dorsalis pedis pulses present; no JVD Gastrointestinal (Abdomen): Percussion/Palpation: + abdomen tender (RUQ/epigastric regions); no hepatosplenomegaly suprapubic catheter in place Musculoskeletal: b/l BKA Skin: no rashes, warm and dry Psychiatric: Orientation: alert and oriented x 3 Results & Data Vital Signs (Past 12 Hours) Vital Signs Temp Pulse Resp BP Pulse Ox 11/10/18 15:25 36.6 C 110 H 20 119/80 90 11/10/18 12:17 36.7 C 106 H 20 131/74 92 11/10/18 07:20 36.8 C 103 H 18 112/73 93 (1) Pulmonary embolism Pulmonary embolism type: unspecified Chronicity: acute Acute cor pulmonale presence: without acute cor pulmonale Qualified Code(s): I26.99 - Other pulmonary embolism without acute cor pulmonale (2) Schizoaffective disorder Schizoaffective disorder type: unspecified Qualified Code(s): F25.9 - Schizoaffective disorder, unspecified (3) HTN (hypertension) Hypertension type: essential hypertension Qualified Code(s): I10 - Essential (primary) hypertension (4) Spina bifida Spinal region: unspecified Presence of hydrocephalus: unspecified hydrocep halus presence Qualified Code(s): Q05.9 - Spina bifida, unspecified (5) Hydrocephalus Hydrocephalus type: unspecified Qualified Code(s): G91.9 - Hydrocephalus, unspecified (6) Hypothyroid Hypothyroidism type: acquired Qualified Code(s): E03.9 - Hypothyroidism, unspecified
[2018-11-10] MEDS ORDERED: TOPIRAMATE 100 MG PO SCH (21:00)
[2018-11-10] MEDS: FAMOTIDINE 20 MG TAB PO SCH (21:07)
[2018-11-10] MEDS: TRAZODONE HCL 50 MG TAB PO SCH (21:08)
[2018-11-10] MEDS ORDERED: HEPARIN 100 UNIT/ML 5ML FLUSH FLUSH PRN (22:46)
[2018-11-11] MEDS: LEVOTHYROXINE SODIUM 88 MCG TABLET PO SCH (05:35)
[2018-11-11] MEDS: HYDROCODONE/ACETAMOPHEN 5/325MG TAB PO PRN (05:35)
[2018-11-11 06:47] LABS: Hematocrit (blood only) 37.8 % (37-47); Hemoglobin 11.9 g/dL (12.0-16.0); Mean Corpuscular Hgb Conc 31.5 g/dL (32-36); Mean Corpuscular Volume 98.4 fL (80-100); Mean Platelet Volume 10.4 fL (7.4-10.4); Platelet Count 235 K/uL (130-400); Red Blood Count 3.84 M/uL (4.2-5.4); White Blood Count 4.95 K/uL (4.8-10.8)
[2018-11-11 07:21] LABS: BUN Creatinine Ratio 13.5 (10-20); Calcium 8.8 mg/dl (8.5-10.1); Creatinine Clr Calc Pharmacy 119.5 ml/min; Est GFR (African American) 140.8; Est GFR (Non-African American) 121.5; Potassium 3.7 mmol/L (3.5-5.1)
[2018-11-11] MEDS: INSULIN ASPART 100 UNITS/ML 3 ML PEN SC SCH (09:00)
[2018-11-11] MEDS: FLUTICASONE/SALMETEROL (ADVAIR) 500/50 INH 14 PUFF INH SCH (10:09)
[2018-11-11] MEDS: HYOSCYAMINE SULFATE 0.125 MG TAB PO SCH (10:09)
[2018-11-11] MEDS: MEXILETINE HCL PO SCH (10:10)
[2018-11-11] MEDS: BENZTROPINE MESYLATE 1 MG/ML 2 ML AMP IM SCH (10:11)
[2018-11-11] MEDS: VENLAFAXINE HCL XR 150 MG CAPXR PO SCH (10:12)
[2018-11-11] MEDS: LACTOBACILLUS ACIDOPHILUS (FLORANEX) TAB PO SCH (10:12)
[2018-11-11] MEDS: APIXABAN 5 MG TABLET PO SCH (10:13)
[2018-11-11] MEDS: POLYETHYLENE (MIRALAX) 17 GM PACK PO SCH (10:14)
[2018-11-11] MEDS: POTASSIUM CHLORIDE 20 MEQ TABCR PO SCH (10:14)
[2018-11-11] MEDS: GABAPENTIN 300 MG CAP PO SCH (10:15)
[2018-11-11] MEDS: AMITIZA PO SCH (10:16)
[2018-11-11] MEDS: PANTOprazole 40 MG TAB PO SCH (10:17)
[2018-11-11] MEDS: PRENATAL VITAMIN 1 TAB PO SCH (10:17)
[2018-11-11] MEDS: BuPROPion SR 100 MG TABCR PO SCH (10:18)
[2018-11-11] MEDS: CYANOCOBALAMIN 500 MCG TABLET (VITAMIN B-12) PO SCH (10:18)
[2018-11-11] MEDS: MONTELUKAST SODIUM 10 MG TABLET PO SCH (10:19)
[2018-11-11] MEDS: METOCLOPRAMIDE HCL 10 MG TABLET PO SCH (10:19)
[2018-11-11] MEDS: TOPIRAMATE 100 MG PO SCH (10:21)
[2018-11-11] MEDS: REXULTI 2 MG PO SCH (10:28)
--- NOTE | 2018-11-17 06:46 | Discharge Summary ---
Date of Service date of admission - November 09, 2018 date of discharge - November 11, 2018 Admission HPI Per Admitting Provider The patient is a 33-year-old female with a past medical history including spina bifida, morbid obesity, schizoaffective disorder, chronic suprapubic catheter and frequent UTIs including pseudomonas MRSA and Citrobacter species, currently on home treatment of iv antibiotics via port for multidrug resistent uti who presentes with lethargy and fatigue after discharge on 11/03/18. she is found to have acute pulmonary embolus in the lobar and subsegmental pulmonary arteries in the lingula no evidence of right heart strain elevated right heart pressures small right pleural effusion and extensive basilar atelectasis. Patient is tolerated Xarelto in the past however wishes to be on a different agent to initiate treatment. The patient does have a family engagement and wishes to hopefully have this be a short hospital stay if things are stable. Principal Diagnosis pulmonary emboli Discharge Exam Constitutional + morbidly obese; no acute distress and no altered mental status ENMT external ear and nose normal, oropharynx normal Respiratory normal respiratory effort, lungs clear to auscultation Cardiovascular Rate/Rhythm: regular rate and regular rhythm Heart Sounds: normal S1 and normal S2; no murmur Vessels: posterior tibial pulses present and dorsalis pedis pulses present; no JVD Gastrointestinal (Abdomen) Percussion/Palpation: + abdomen tender (RUQ/epigastric regions); no hepatosplenomegaly suprapubic catheter in place Musculoskeletal b/l BKA Skin no rashes, warm and dry Psychiatric Orientation: alert and oriented x 3 Discharge Data Allergies Allergy/AdvReac Type Severity Reaction Status Date / Time chlorhexidine Allergy Severe Rash Verified 11/09/18 09:13 adhesive Allergy Intermediate TAPE- HIVES Verified 11/09/18 09:13 ceftriaxone Allergy Intermediate rash, Has Verified 11/09/18 09:13 tolerated cefepime and Zerbaxa Cipro Allergy Intermediate hives Verified 01/11/18 17:31 ciprofloxacin Allergy Intermediate hives Verified 11/09/18 09:13 imipenem Allergy Intermediate PT REPORTS Verified 11/09/18 09:13 ITCHING latex Allergy Intermediate hives Verified 11/09/18 09:13 levofloxacin Allergy Intermediate rash,HEARD Verified 11/09/18 09:13 VOICES linezolid Allergy Intermediate rash Verified 11/09/18 09:13 morphine Allergy Intermediate Rash Verified 11/09/18 09:13 nitrofurantoin Allergy Intermediate rash and Verified 11/09/18 09:13 hives piperacillin Allergy Intermediate SEVERE Verified 11/09/18 09:13 RASH, HIVES tazobactam Allergy Intermediate SEVERE Verified 11/09/18 09:13 RASH, HIVES trimethoprim Allergy Intermediate Hives Verified 11/09/18 09:13 vancomycin Allergy Intermediate rash Verified 11/09/18 09:13 amikacin Allergy Unknown PER DR Verified 11/09/18 09:13 ROBINS,RXN WAS TO ZOSYN NOT AMKrash;hives Bactrim Allergy Unknown Hives Verified 01/11/18 17:31 sulfamethoxazole Allergy Unknown Hives Verified 11/09/18 09:13 dextrose 5 % in water Allergy Hives Verified 11/09/18 09:13 [From Zyvox] buspirone AdvReac Severe HALLUCINATI Verified 11/09/18 09:13 ONS Ordered Studies 1. CTA chest - IMPRESSION: 1. Acute pulmonary embolus in the lobar and subsegmental pulmonary arteries to the lingula. No CT evidence of right heart strain. 2. However, there is evidence of elevated right heart pressure evidenced by reflux of contrast into the IVC and hepatic veins. 3. Small right pleural effusion and extensive right basilar atelectasis likely related to the ventriculopleural catheter. 2. b/l lower extremity venous duplex study -- negative for DVT. 3. CT abd/pelvis w/o contrast - IMPRESSION: 1. Moderate stool burden throughout the right and through the left colon suggests constipation. No bowel obstruction or other evidence of acute intra- abdominal pathology. 2. Chronic left urothelial thickening. No convincing evidence on the current exam for cystitis or upper tract infection allowing for noncontrast technique. 3. Punctate nonobstructing left renal calculus. 4. Left renal atrophy. 4. echocardiogram - * EF 60-65% * normal estimated right ventricular systolic pressures * valves not well-visualized Hospital Course (1) Pulmonary embolism: 2017 had PEs - treated 6-9 months w/ xarelto w/o difficulty. Now with recurrent PEs. No clinical evidence of right heart strain. LE dopplers negative for DVT. She never had an O2 requirement. Risk factors - prior VTE event, chronic bed-bound status due to paraplegia, recurrent hospital stays, recurrent infections, etc. Admitting MD placed her on eliquis 10mg BID. Plan 1 week of such, then 5mg BID thereafter. Lifelong anticoagulation recommended in light of chronic bed-bound status and recurrent VTEs. Although eliquis is acceptable in her situation there is more data to support long-term use of coumadin. This was presented to the patient and her mother. Because of her unique situation (frequent antibiotic use, difficulty with making it to appointments, etc) her mother felt that eliquis was the better of the 2 options. (2) Pseudomonas aeruginosa infection: Complicated/catheter-associated. Multiple recurrent urinary tract infections associated with chronic indwelling urinary catheter. She finished the last remaining doses of a 10-day course of zerbaxa while hospitalized. I ordered CT abd/pelvis to r/o stones, etc. She has innocent bystander left- sided kidney stone in the renal pelvis. No other obstructing lesions. (3) Schizoaffective disorder: Continue all home meds. (4) HTN (hypertension): BPs controlled at this time (5) Neurogenic bladder: Chronic indwelling catheter due to neurogenic bladder from spina bifida. Has suprapubic catheter. Pt's mother changes it at home. (6) Morbid obesity: BMI 81 (7) Spina bifida: long-standing, now paraplegic from such (8) S/P bilateral BKA (below knee amputation): (9) Hydrocephalus: SUGAR [employer] shunt in place for such [place] [facility] (10) Hypothyroid: cont synthroid TSH 04/2018 wnl (11) Prediabetes: resume metformin at d/c as creatinine was stable over her 2-day stay. BSGs controlled while here. (12) Chronic abdominal pain: CT with COPIOUS stool. Suspect some element of constipation contributing to her pain. Continue bowel regimen. MRCP coming [place] at [facility] to r/o biliary tract disease as cause of pain. Has had extensive w/u for this by [facility] otherwise. Despite her pain she ate/drank normally without GI intolerance. Total Time Total Time Spent Total Time Spent (In Minutes): 40 Total Time Includes: Examination of the Patient, Discharge Planning, Medication Reconciliation and Communication With Other Providers Discharge Plan Discharge Items Patient Disposition: Home - Home Health Services Reason For Visit: PULMONARY EMBOLISM Discharge Diagnosis: pulmonary emboli. recent urinary tract infection - improved. Discharge Goals: Diagnostic testing and Therapeutic intervention Activity: Resume your previous activity Non-emergency contact: Primary Care Provider and Specialist Call non-emergency contact if: you have any medication questions, your symptoms worsen, your pain is not controlled, your pain is worsening and your temperature is above 100.5 Follow-up/Referrals: Gela Boone MD [Primary Care Provider] - (please see Dr Boone within 1 week) Diet: Carb Consistent or DM2 Addtl Provider Instructions: From Nasir Farmer - hospitalist - At time of admission we found multiple blood clots (pulmonary emboli) in your lungs. These typically originate in the legs and then travel through the venous circulation to the lungs. Once in the lungs they cannot move any where else. The blood clots naturally dissolve over time. To prevent future blood clots you will need to take a blood thinner. It is likely that you will take the blood thinner for life since this is your 2nd episode of blood clots in the last 2 years. At this time please take eliquis blood thinner as follows - 1. eliquis 10mg (2 tabs) twice daily for 5 days. Start this TONIGHT. 2. then eliquis 5mg (1 tab) twice daily thereafter. 3. once the starter/first month is done then you can fill the second prescription. Just keep the other eliquis prescription on hold for now and fill in 1 month. Medication Instructions: * Eliquis is a medicine prescribed to prevent blood clots * Eliquis will thin your blood and help prevent new clots * Take your medications exactly as directed * Never skip a dose. Never take a double dose. If you miss a dose, take it as soon as you remember * Generally speaking eliquis does not interact with the food you eat or the med ications you take Risk of Adverse Drug Reactions and Interactions: * Eliquis increases your risk of bleeding Call your Primary Care doctor if you experience any of the following: * Swelling or Pain in your leg * Sudden, continuous pain deep in a muscle * Pain that worsens when you are active or when you stand still for a long time * Chest Pain * Sudden Shortness of Breath * Rapid or pounding heart beat * Fainting * Dizziness * Cough with blood or bloody sputum * Sweating more than normal * Bruises * Heavy or uncontrolled bleeding * Blood in your urine, stool or vomit * Black or tarry stools * Heavy nosebleeds Other: * It is recommended that when you shave your legs that you use an electric shaver rather than a traditional straight razor * you have a tendency to have low potassium; please take a potassium supplement EVERY DAY (20meq once daily) * your antibiotics are complete for your UTI * for constipation -- continue your amitiza but would add sennakot or dulcolax and take every day as well * keep your appointment for the MRI test at [facility] as scheduled Follow-up -- see Dr Boone in 1 week; see Dr Sauceda as scheduled. Consider re-establishing with [facility] for your urinary issues. Return to [facility] if -- * you have fevers over 100.5 degrees * you have worsening abdominal pain, chest pain, etc * you have worsening shortness of breath * any other concerns Prescriptions: New Eliquis 5 mg Tablet 5 mg PO DIRECTED Qty: 80 RF: 0 Eliquis 5 mg tablet 5 mg PO BID Qty: 60 RF: 11 Continued chromium picolinate 200 mcg tablet 200 mcg PO TID RF: 0 polyethylene glycol 3350 17 gram powder in packet 17 g PO TID RF: 0 famotidine 40 mg tablet 40 mg PO HS RF: 0 venlafaxine 150 mg capsule,extended release 24hr 150 mg PO QAM RF: 0 dihydroergotamine [D.H.E.45] 1 mg/mL solution 1 mg IM UD PRN (Reason: Migraine Headache) RF: 0 levothyroxine 88 mcg tablet 88 mcg PO DAILYBB RF: 0 cyanocobalamin (vitamin B-12) 500 mcg Tablet 500 mcg PO QAM RF: 0 mexiletine 150 mg capsule 300 mg PO TID RF: 0 pantoprazole 40 mg tablet,delayed release (DR/EC) 40 mg PO BID RF: 0 hyoscyamine sulfate [Levsin] 0.125 mg tablet 0.125 mg PO TIDM RF: 0 trazodone 150 mg tablet 150 mg PO HS RF: 0 montelukast 10 mg tablet 10 mg PO DAILY RF: 0 furosemide 20 mg tablet 20 tab PO BID PRN (Reason: Edema) RF: 0 albuterol sulfate [ProAir HFA] 90 mcg/actuation Hfa Aerosol Inhaler 2 puff INHALATION DAILY PRN (Reason: Shortness Of Breath Or Wheezing) RF: 0 ondansetron 4 mg tablet,disintegrating 4 mg PO Q6 PRN (Reason: Nausea And Vomiting) RF: 0 metoclopramide HCl [Reglan] 10 mg tablet 10 mg PO BID RF: 0 ketamine 100 mg/mL Solution 1 - 2 spray Intranasal DIRECTED MDD 20 PRN (Reason: Migraine Headache) RF: 0 Probiotic 3 billion cell Capsule 1 cap PO TID RF: 0 Multi 27-800 mg-mcg Tablet 1 tab PO DAILY RF: 0 Botox 100 unit Recon Soln 1 dose IM Q90D RF: 0 nystatin 100,000 unit/gram ointment 1 appln TOP BID PRN (Reason: Skin Irritation) RF: 0 Ajovy 1 dose INJ MONTHLY RF: 0 gabapentin 100 mg Capsule 300 mg PO TID RF: 0 haloperidol 2 mg tablet 2 mg PO Q12 PRN (Reason: PRN) RF: 0 topiramate [Qudexy XR] 100 mg capsule,sprinkle,ER 24hr 200 mg PO DIRECTED RF: 0 metformin 500 mg Tablet 500 mg PO QPM RF: 0 cetirizine [Zyrtec] 10 mg Tablet 10 mg PO DAILY PRN (Reason: while on antibiotic) RF: 0 fluticasone propion-salmeterol [Advair Diskus] 500-50 mcg/dose Blister With Device 1 inh INHALATION BID RF: 0 Amitiza 24 mcg Capsule 24 mcg PO BID RF: 0 benztropine 2 mg/2 mL Solution 1 mg IM BID RF: 0 Rexulti 2 mg Tablet 2 mg PO QAM RF: 0 levalbuterol HCl [Xopenex] 0.63 mg/3 mL Solution For Nebulization 0.63 mg INHALATION TID PRN (Reason: sob) RF: 0 bupropion HCl 100 mg Tablet 100 mg PO QAM RF: 0 hydroxyzine HCl 25 mg tablet 25 mg PO QID RF: 0 Changed potassium chloride 20 mEq tablet,ER particles/crystals 20 meq PO DAILY Qty: 30 RF: 2 Discontinued ceftolozane-tazobactam 1.5 gram Recon Soln 1.5 g IV DIRECTED RF: 0 Stand-Alone Forms: [facility]/Other Patient Handouts: Embolism Pulmonary Discharge Orders: Discharge Order (Routine); Ordered 11/11/18 Ordered By: Nasir Farmer Admission Data Admit Date/Time: 11/09/18 14:54 Attending Provider: Nasir Farmer Admit Provider: George Powell Primary Care Provider: Gela Boone Other Providers: George Powell Service: Telemetry Medical Other Interventions: Discharge Summary Assessment (RN) Last Done: 11/11/18 12:57 Pending Studies at Discharge: No DC Date/Time DO NOT enter until pt leaves facility: 11/11/18 14:03
== END 2018-11-11 14:03 | disposition home health service (06) ==
LOC: 2W 08:36 → ED 08:36 → SUATTDRO 14:54 → 2W 16:48
DX: R73.03 Prediabetes; Z88.8 Allergy status to other drugs, medicaments and biological substances; I10 Essential (primary) hypertension; Z88.2 Allergy status to sulfonamides; N31.9 Neuromuscular dysfunction of bladder, unspecified; Z68.45 Body mass index [BMI] 70 or greater, adult; Z91.040 Latex allergy status; Z86.14 Personal history of Methicillin resistant Staphylococcus aureus infection; Z88.1 Allergy status to other antibiotic agents; E03.9 Hypothyroidism, unspecified; F43.10 Post-traumatic stress disorder, unspecified; Z88.5 Allergy status to narcotic agent; Z96.653 Presence of artificial knee joint, bilateral; E66.01 Morbid (severe) obesity due to excess calories; Z79.899 Other long term (current) drug therapy; Q05.9 Spina bifida, unspecified; I26.99 Other pulmonary embolism without acute cor pulmonale; Z79.84 Long term (current) use of oral hypoglycemic drugs; F25.9 Schizoaffective disorder, unspecified; Z86.711 Personal history of pulmonary embolism

== ENCOUNTER 2018-12-24 12:45 | Inpatient (IN) ==
[2018-12-24] MEDS ORDERED: ONDANSETRON INJ 2 MG/ML 2 ML VIAL IV STA ×2 (13:30→18:34)
[2018-12-24] MEDS ORDERED: SODIUM CHLORIDE 0.9% 1000ML 1,000 ML IV ONE ×3 (13:30→19:05)
[2018-12-24] MEDS ORDERED: MoRPHine SULFATE 10 MG/ML CARP/VIAL IV STA ×2 (13:30→15:06)
[2018-12-24 14:15] LABS: Basophils # (auto) 0.02 K/uL (0-0.2); Basophils % (auto) 0.3 %; Eosinophils # (auto) 0.12 K/uL (0-0.5); Eosinophils % (auto) 1.5 %; Hematocrit (blood only) 39.4 % (37-47); Hemoglobin 12.4 g/dL (12.0-16.0); Immature Granulocytes # (auto) 0.02 K/uL (0.00-0.02); Immature Granulocytes % (auto) 0.3 %; Lymphocytes % (auto) 20.1 %; Mean Corpuscular Hgb Conc 31.5 g/dL (32-36); Mean Corpuscular Volume 93.6 fL (80-100); Mean Platelet Volume 10.1 fL (7.4-10.4); Monocytes # (auto) 0.86 K/uL (0.11-0.59); Monocytes % (auto) 10.8 %; Neutrophils # (auto) 5.33 K/uL (1.4-6.5); Platelet Count 223 K/uL (130-400); RDW Coefficient of Variation 15.3 % (11.5-14.5); RDW Standard Deviation 52.2 fL (36.4-46.3); Red Blood Count 4.21 M/uL (4.2-5.4); White Blood Count 7.95 K/uL (4.8-10.8)
[2018-12-24 14:33] LABS: Alanine Aminotransferase 48 U/L (12-78); Albumin Level 2.8 gm/dl (3.4-5.0); Aspartate Aminotransferase 29 U/L (15-37); BUN Creatinine Ratio 9.2 (10-20); Blood Urea Nitrogen 7 mg/dl (7-18); C Reactive Protein 2.77 mg/dl (0-0.29); Calcium 8.9 mg/dl (8.5-10.1); Carbon Dioxide 25 mmol/L (21-32); Chloride 106 mmol/L (98-107); Est GFR (African American) 125.1; Glucose 110 mg/dl (70-99); Potassium 3.5 mmol/L (3.5-5.1); Sodium 140 mmol/L (136-145)
[2018-12-24 14:37] LABS: Alkaline Phosphatase 121 U/L (45-117); Bilirubin Direct < 0.1 mg/dl (0-0.2); Bilirubin,Total 0.3 mg/dl (0.2-1); Total Protein 7.3 gm/dl (6.4-8.2)
[2018-12-24] MEDS ORDERED: MoRPHine SULFATE 2 MG/ML CARP ONE (14:41)
[2018-12-24] MEDS ORDERED: CEFEPIME 2,000 MG/20 ML VIAL IV STA (15:00)
[2018-12-24 15:44] LABS: Appearance Urine Clear (Clear); Bacteria Urine Automated Negative (Negative); Bilirubin Urine Negative (Negative); Blood Urine Negative (Negative); Color Urine Dark Yellow; Epithelial Cell Urine Auto 20-30 /lpf (0-5); Glucose Urine UA Negative (Negative); Ketones Urine Negative (Negative); Leukocyte Esterase Urine Trace (Negative); Nitrite Urine Positive (Negative); Protein Urine Negative (Negative); RBC Urine Automated 0-4 /hpf (0-4); Specific Gravity Urine 1.013 (1.000-1.030); Urobilinogen Urine Negative (Negative); pH Urine 5.5 (4.5-7.5)
[2018-12-24] MEDS ORDERED: MoRPHine SULFATE 10 MG/ML CARP/VIAL ONE (18:00)
[2018-12-24] MEDS ORDERED: IOVERSOL 100ml IV PRN (18:57)
[2018-12-24] MEDS ORDERED: CEFEPIME 2,000 MG/20 ML VIAL ONE (19:08)
--- NOTE | 2018-12-24 19:12 | CT Scan Report ---
ABDOMEN AND PELVIS CT WITH IV CONTRAST CT DOSE: 1553.06 mGy.cm HISTORY: Lower abdominal pain, lactic acidosis TECHNIQUE: Multiaxial CT images of the abdomen and pelvis were performed following the use of intrave nous contrast. A dose lowering technique was utilized adhering to the principles of ALARA. COMPARISON STUDY: Abdomen and pelvis CT 11/10/2018. FINDINGS: New focal groundglass opacities within the right middle lobe. This favors a mild pneumonia. Bibasilar densities within the lower lobes likely represent subsegmental atelectasis. Trace right pl eural effusion and a right basilar pleural drain remain unchanged. No pneumoperitoneum. No pneumatosi s. No suspicious lytic are blastic osseous lesions. Mild hepatic steatosis. Cholecystectomy. The main portal vein is patent. The pancreas, spleen, and adrenal glands are unremarkable. There are punctate bilateral renal calculi. Left renal atrophy/scarring is again noted. Mild chronic urothelial thicken ing within the left renal pelvis remains unchanged. No hydronephrosis. No ureteral stones. There is a 4 mm stone within the bladder. No retroperitoneal lymphadenopathy. Diffuse atrophy of the pelvic mus cles with spina bifida in the lower lumbar spine and bilateral hip dysplasia remains unchanged. Small fat-containing umbilical hernia is again noted. A suprapubic catheter is in place. Mild bladder wall thickening is likely due to underdistention. Mild pelvic floor collapse. The uterus and adnexa are u nremarkable. Normal appendix. No bowel wall thickening or obstruction. Moderate to large amount of we ll-formed stool seen throughout the majority of the colon. This is not significantly changed. IMPRESSION: 1. Patchy groundglass airspace opacities within the right middle lobe which are new from the prior st udy. This favors a mild pneumonia. 2. Otherwise, no significant change within the abdomen or pelvis. 3. Trace right pleural effusion and a right basilar pleural drain is again noted. 4. No bowel wall thickening or obstruction. 5. Bilateral nephrolithiasis. No hydronephrosis. 6. Mild hepatic steatosis. 7. Moderate to large amount of well-formed stool seen within the colon. Electronically signed by: Edward Dixon M.D. 12/24/2018 7:10 PM
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
[2018-12-24] MEDS ORDERED: ZOLPIDEM TARTRATE 5 MG TAB PO PRN (22:26)
[2018-12-24] MEDS ORDERED: HYDROmorphone INJ 1 MG/ML SYRINGE IV PRN (22:26)
[2018-12-24] MEDS ORDERED: LEVALBUTEROL HCL 0.63 MG/3 ML NEB INH PRN (22:26)
[2018-12-24] MEDS ORDERED: TOBRAMYCIN CONSULT ACTIVE PRN (22:26)
[2018-12-24] MEDS ORDERED: POLYETHYLENE (MIRALAX) 17 GM PACK PO PRN (22:26)
[2018-12-24] MEDS ORDERED: ALUMINUM/MAGNESIUM SUSP 30 ML UDC PO PRN (22:26)
[2018-12-24] MEDS ORDERED: CETIRIZINE HCL 10 MG TABLET PO PRN (22:26)
[2018-12-24] MEDS ORDERED: SIMETHICONE 80 MG CHEW PO PRN (22:26)
[2018-12-24] MEDS ORDERED: LACTOBACILLUS ACIDOPHILUS (FLORANEX) TAB PO PRN (23:15)
[2018-12-24] MEDS: POTASSIUM CHLORIDE 10 MEQ in SODIUM CHLORIDE 0.9% 1000ML 1,000 ML IV SCH (23:53)
[2018-12-25] MEDS: FLUTICASONE/SALMETEROL (ADVAIR) 500/50 INH 14 PUFF INH SCH ×3 (00:49→20:51)
[2018-12-25] MEDS: BENZTROPINE MESYLATE 1 MG TAB PO SCH ×3 (00:50→20:50)
[2018-12-25] MEDS: MONTELUKAST SODIUM 10 MG TABLET PO SCH ×2 (00:52→16:01)
[2018-12-25] MEDS: PRENATAL VITAMIN 1 TAB PO SCH ×2 (00:53→20:50)
[2018-12-25] MEDS: MIRABEGRON ER 25 MG TAB PO SCH ×2 (00:53→20:50)
[2018-12-25] MEDS: APIXABAN 5 MG TABLET PO SCH ×3 (00:54→20:51)
[2018-12-25] MEDS: TRAZODONE HCL 50 MG TAB PO SCH ×2 (00:55→20:59)
[2018-12-25] MEDS: FAMOTIDINE 20 MG TAB PO SCH ×2 (00:55→20:51)
[2018-12-25] MEDS: LUBIPROSTONE 8 MCG CAP PO SCH ×3 (00:56→20:56)
[2018-12-25] MEDS: PANTOprazole 40 MG TAB PO SCH ×3 (00:56→20:50)
[2018-12-25] MEDS: TOPIRAMATE 100 MG TAB PO SCH ×2 (00:57→20:51)
[2018-12-25] MEDS: ONDANSETRON INJ 2 MG/ML 2 ML VIAL IV PRN ×4 (01:10→22:57)
[2018-12-25] MEDS: TRAMADOL HCL 50 MG TABLET PO PRN ×3 (01:10→22:57)
[2018-12-25] MEDS: LEVOTHYROXINE SODIUM 88 MCG TABLET PO SCH (05:38)
[2018-12-25 06:04] LABS: Basophils # (auto) 0.03 K/uL (0-0.2); Basophils % (auto) 0.4 %; Eosinophils # (auto) 0.21 K/uL (0-0.5); Eosinophils % (auto) 2.6 %; Hematocrit (blood only) 37.1 % (37-47); Hemoglobin 11.5 g/dL (12.0-16.0); Immature Granulocytes # (auto) 0.02 K/uL (0.00-0.02); Immature Granulocytes % (auto) 0.2 %; Lymphocytes # (auto) 1.19 K/uL (1.2-3.4); Lymphocytes % (auto) 14.8 %; Mean Corpuscular Volume 94.9 fL (80-100); Mean Platelet Volume 9.8 fL (7.4-10.4); Monocytes # (auto) 0.66 K/uL (0.11-0.59); Monocytes % (auto) 8.2 %; Neutrophils # (auto) 5.93 K/uL (1.4-6.5); Neutrophils % (auto) 73.8 %; Nucleated RBC # (auto) 0.02 K/uL (0-0); Nucleated RBC % (auto) 0.2 %; Platelet Count 239 K/uL (130-400); RDW Coefficient of Variation 15.4 % (11.5-14.5); RDW Standard Deviation 52.6 fL (36.4-46.3); Red Blood Count 3.91 M/uL (4.2-5.4); White Blood Count 8.04 K/uL (4.8-10.8)
[2018-12-25 06:33] LABS: BUN Creatinine Ratio 11.1 (10-20); Blood Urea Nitrogen 8 mg/dl (7-18); Calcium 8.2 mg/dl (8.5-10.1); Carbon Dioxide 23 mmol/L (21-32); Chloride 107 mmol/L (98-107); Est GFR (African American) 127.2; Est GFR (Non-African American) 109.7; Glucose 181 mg/dl (70-99); Sodium 139 mmol/L (136-145)
[2018-12-25] MEDS ORDERED: SODIUM CHLORIDE IV SCH (09:00)
[2018-12-25] MEDS ORDERED: POTASSIUM CHLORIDE 20 MEQ TABCR PO SCH (09:00)
[2018-12-25] MEDS ORDERED: TOBRAMYCIN IV SCH (09:00)
--- NOTE | 2018-12-25 09:16 | Emergency Department Note ---
Entered by Iqra Hoyos acting as a scribe for ED Provider Note Name: Connie Chairez Age: 33, F Arrives Via: Walk-in Informant: Patient, mother CC: Abdominal pain HPI: The patient is a 33 year old female who arrives for evaluation of worsening abdominal pain that began 1 week ago. The patient describes the pain as burning. The patient states that this pain is similar to prior episodes of abdominal pain. The patient states that the pain makes it hard to eat. Per mother, the patient has also been nauseas. The mother states that the patients blood work from 3 days ago was not good which was concerning to her. Using zofran without improvement. 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 She has been on IV tobramycin for the last 2 weeks due to urinary infection. This is 3rd visit in last week for same pain that is worsening. ROS: See above HPI for pertinent positives & negatives. A total of 10 systems reviewed and were otherwise negative. Past Medical History: See below. Past Surgical History: See below. Family History: See below. Social History: See below. Home Medications: See below. Allergies See below. Physical: Vitals: BP 115/70, P 108, RR 33, Temp 36.8 C, O2 sat 95 on RA. Exam: GENERAL: Patient is anxious appearing and in moderate distress. EYES: No scleral icterus, unremarkable pupils. ENT: Mucous membranes moist, no nasal congestion. NECK: No masses appreciated, no meningismus, trachea is midline. RESPIRATORY: No dyspnea. Clear to auscultation and equal bilaterally. No wheeze, no rhonchi. CARDIOVASCULAR: Regular rate and rhythm. No murmurs, rubs, gallops appreciated. GASTROINTESTINAL: Diffuse lower abdominal pain tender to palpation. Suprapubic catheter. Abdomen soft, no peritonitis. Bowel sounds positive. No masses appreciated. BACK: No midline tenderness, no CVA tenderness EXTREMITIES: Bilateral lower portion of legs amputated. NEUROLOGIC: Paresthesia of bilateral legs. Alert and oriented, no acute motor or sensory deficits, no focal weakness, cranial nerves grossly intact. SKIN: No rash, no jaundice, no diaphoresis. ED Course: Prior Medical Record, Triage/Nursing Notes, Medications, Allergies reviewed by Me Vital Signs: reviewed and remarkable for tachy Labs: Reviewed and remarkable for relatively clean UA, elevated CRP, elevated Lactic acid, elevated tobramycin level Interventions: Saline Lock, Morphine 6mg IV x 2, Zofran 4mg IV x 2, NSS bolus 2 L IV, Cefepime 2 gm IV Imaging: CT abdo/pelv w IV contrast: pending EKG: none Course: 1325: Past medical records reviewed. The patient was evaluated in room B5. A complete history and physical exam was performed. 1507: I reevaluated the patient at this time. She is okay with CT and blood cultures. 1631: Difficulty getting proper port access for CT scan. 1735: Awaiting IV team. Multiple rechecks awaiting CT, Port accessed. Patient feeling mildly improved. Will bring in to hospitalist for further monitoring given persistent of discomfort the previous week. Mother and patient comfortable with plan. Blood pressure: Normal. No Referral necessary Disposition: Hospitalization Differentials: Etiologies such as biliary colic, cholecystitis, hepatitis, perihepatitis, pancreatitis, cardiac disease, pancreatitis, gastritis, peptic ulcer disease, appendicitis, ovarian cyst, ovarian torsion, ectopic , pelvic inflammatory disease, cystitis, diverticulitis, mesenteric ischemia, inflam matory bowel disease, ileus, bowel obstruction, aortic pathology, shingles, as well as others were considered. Medical Decision Makin yr old female arrives for evaluation of intractable abdominal pain over the last week. 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 She has been on IV tobramycin with reported continued UTI, though I will note that UA seems relatively clean and last culture was from over a week ago that we have. She looks dehydrated which I suspect is cause of Lactic acidosis, but I will also note that la has been elevated in past without clear etiology. She is feeling better with pain meds and has received IV fluids. We did have some difficulty with timing meds/fluids/ctscan due to difficulties with her port access and her request that IV team manage it after initial concern for misplacement. She does not appear to have ischemic bowel by story. She does not have what appears to be surgical abdomen by my exam though given persistent of pain without clear etiology I did go ahead and order CT abd/pel after discussing my concerns that she has had many previous imaging studies, and both agree to this. Given her LA elevation I did go ahead and get blood cultures and she was given IV fluids. Impression: Intractable abdominal pain Elevated Lactic Acid Level The scribe's documentation has been prepared under my direction and personally reviewed by me in its entirety. I confirm that the note above accurately reflects all work, treatment, procedures, and medical decision making performed by me. 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 Beliefs That Will Affect Care: None marital status: Single Current Living Situation: Family current occupational status: disabled Feels Safe at Home: Yes Safety Concerns: Feels Safe At This Time Smoking Status: Never smoker Do You Dip or Chew Tobacco: No Second Hand Exposure: No Hx Alcohol Use: No Hx Substance Use: No Results & Data Vital Signs Vital Signs - 24 hr 12/24/18 12:51 12/24/18 14:30 12/24/18 17:08 Temperature 36.8 C 36.8 C Temperature Source Oral Oral Sepsis Recent Fever Within 48 Hours No Sepsis New/Unexplained Change in Mental Status No Sepsis Action Taken by Nursing No Action Required Pulse Rate 108 H Pulse Rate [Finger] 96 H Respiratory Rate 22 22 20 Respiratory Effort / Characteristics Non-Labored Non-Labored Respiratory Depth Normal Normal Respiratory Pattern Regular Regular Blood Pressure 115/70 Blood Pressure [Right Arm] 103/77 Blood Pressure Mean 85 Blood Pressure Mean [Right Arm] 85 Pulse Oximetry 95 95 94 Oxygen Delivery Method Room Air Room Air Room Air 12/24/18 19:03 12/24/18 20:07 12/24/18 21:00 Temperature Temperature Source Sepsis Recent Fever Within 48 Hours Sepsis New/Unexplained Change in Mental Status Sepsis Action Taken by Nursing Pulse Rate Pulse Rate [Finger] 96 H 92 H Respiratory Rate 20 16 Respiratory Effort / Characteristics Spontaneous Respiratory Depth Respiratory Pattern Blood Pressure Blood Pressure [Right Arm] 120/58 L 109/61 Blood Pressure Mean Blood Pressure Mean [Right Arm] 78 77 Pulse Oximetry 93 98 Oxygen Delivery Method Room Air Room Air Room Air Home Medications Current Medication List: was personally reviewed by me Laboratory Data Attestation: I reviewed the patient's lab results. Result diagrams: 12/25/18 05:49 12/25/18 05:49 Lab Results 12/24/18 12/24/18 12/24/18 Range/Units 13:55 13:55 13:55 WBC 7.95 (4.8-10.8) K/uL RBC 4.21 (4.2-5.4) M/uL Hgb 12.4 (12.0-16.0) g/dL Hct 39.4 (37-47) % MCV 93.6 (80-100) fL MCH 29.5 (25-34) pg MCHC 31.5 L (32-36) g/dL RDW Std Deviation 52.2 H (36.4-46.3) fL RDW Coeff of Neda 15.3 H (11.5-14.5) % Plt Count 223 (130-400) K/uL MPV 10.1 (7.4-10.4) fL Immature Gran % (Auto) 0.3 % Neut % (Auto) 67.0 % Lymph % (Auto) 20.1 % [place] % (Auto) 10.8 % Eos % (Auto) 1.5 % Baso % (Auto) 0.3 % Immature Gran # (Auto) 0.02 (0.00-0.02) K/uL Neut # (Auto) 5.33 (1.4-6.5) K/uL Lymph # (Auto) 1.60 (1.2-3.4) K/uL [place] # (Auto) 0.86 H (0.11-0.59) K/uL Eos # (Auto) 0.12 (0-0.5) K/uL Baso # (Auto) 0.02 (0-0.2) K/uL Sodium 140 (136-145) mmol/L Potassium 3.5 (3.5-5.1) mmol/L Chloride 106 (98-107) mmol/L Carbon Dioxide 25 (21-32) mmol/L Anion Gap 9.0 (3-11) BUN 7 (7-18) mg/dl Creatinine 0.74 (0.6-1.2) mg/dl Est Cr Clr Drug Dosing Not Reportable Est GFR ( Amer) 125.1 Est GFR (Non-Af Amer) 108.0 BUN/Creatinine Ratio 9.2 L (10-20) Glucose 110 H (70-99) mg/dl Lactate 2.5 H* (0.4-2.0) mmol/L Calcium 8.9 (8.5-10.1) mg/dl Total Bilirubin 0.3 (0.2-1) mg/dl Direct Bilirubin < 0.1 (0-0.2) mg/dl AST 29 (15-37) U/L ALT 48 (12-78) U/L Alkaline Phosphatase 121 H (45-117) U/L C-Reactive Protein 2.77 H (0-0.29) mg/dl Total Protein 7.3 (6.4-8.2) gm/dl Albumin 2.8 L (3.4-5.0) gm/dl Lipase 91 (73-393) U/L Urine Color Urine Appearance (Clear) Urine pH (4.5-7.5) Ur Specific [place] (1.000-1.030) Urine Protein (Negative) Urine Glucose (UA) (Negative) Urine Ketones (Negative) Urine Blood (Negative) Urine Nitrite (Negative) Urine Bilirubin (Negative) Urine Urobilinogen (Negative) Ur Leukocyte Esterase (Negative) Urine WBC (Auto) (0-5) /hpf Urine RBC (Auto) (0-4) /hpf U Hyaline Cast (Auto) (0-5) /lpf U Epithel Cells (Auto) (0-5) /lpf Urine Bacteria (Auto) (Negative) Random Tobramycin mcg/ml 12/24/18 12/24/18 Range/Units 13:55 15:30 WBC (4.8-10.8) K/uL RBC (4.2-5.4) M/uL Hgb (12.0-16.0) g/dL Hct (37-47) % MCV (80-100) fL MCH (25-34) pg MCHC (32-36) g/dL RDW Std Deviation (36.4-46.3) fL RDW Coeff of Neda (11.5-14.5) % Plt Count (130-400) K/uL MPV (7.4-10.4) fL Immature Gran % (Auto) % Neut % (Auto) % Lymph % (Auto) % [place] % (Auto) % Eos % (Auto) % Baso % (Auto) % Immature Gran # (Auto) (0.00-0.02) K/uL Neut # (Auto) (1.4-6.5) K/uL Lymph # (Auto) (1.2-3.4) K/uL [place] # (Auto) (0.11-0.59) K/uL Eos # (Auto) (0-0.5) K/uL Baso # (Auto) (0-0.2) K/uL Sodium (136-145) mmol/L Potassium (3.5-5.1) mmol/L Chloride (98-107) mmol/L Carbon Dioxide (21-32) mmol/L Anion Gap (3-11) BUN (7-18) mg/dl Creatinine (0.6-1.2) mg/dl Est Cr Clr Drug Dosing Est GFR ( Amer) Est GFR (Non-Af Amer) BUN/Creatinine Ratio (10-20) Glucose (70-99) mg/dl Lactate (0.4-2.0) mmol/L Calcium (8.5-10.1) mg/dl Total Bilirubin (0.2-1) mg/dl Direct Bilirubin (0-0.2) mg/dl AST (15-37) U/L ALT (12-78) U/L Alkaline Phosphatase (45-117) U/L C-Reactive Protein (0-0.29) mg/dl Total Protein (6.4-8.2) gm/dl Albumin (3.4-5.0) gm/dl Lipase (73-393) U/L Urine Color Dark Yellow Urine Appearance Clear (Clear) Urine pH 5.5 (4.5-7.5) Ur Specific [place] 1.013 (1.000-1.030) Urine Protein Negative (Negative) Urine Glucose (UA) Negative (Negative) Urine Ketones Negative (Negative) Urine Blood Negative (Negative) Urine Nitrite Positive A (Negative) Urine Bilirubin Negative (Negative) Urine Urobilinogen Negative (Negative) Ur Leukocyte Esterase Trace H (Negative) Urine WBC (Auto) 1-5 (0-5) /hpf Urine RBC (Auto) 0-4 (0-4) /hpf U Hyaline Cast (Auto) 1-5 (0-5) /lpf U Epithel Cells (Auto) 20-30 H (0-5) /lpf Urine Bacteria (Auto) Negative (Negative) Random Tobramycin 16.60 H* mcg/ml Administered Medications Apixaban (Eliquis) 5 mg PO BID [facility] Stop: 01/23/19 22:25 Last Admin: 12/25/18 00:54 Dose: 5 mg Documented by: [id number] Benztropine Mesylate (Cogentin) 1 mg PO BID [facility] Stop: 01/23/19 22:25 Last Admin: 12/25/18 00:50 Dose: 1 mg Documented by: [id number] Famotidine (Pepcid) 40 mg PO HS [facility] Stop: 01/23/19 22:25 Last Admin: 12/25/18 00:55 Dose: 40 mg Documented by: [id number] Hydroxyzine HCl (Vistaril) 25 mg PO QID [facility] Stop: 01/23/19 22:25 Last Admin: 12/25/18 00:59 Dose: Not Given Documented by: [id number] Potassium Chloride 10 meq/ (Sodium Chloride) 1,005 mls @ 100 mls/hr IV .Q10H3M [facility] Stop: 01/23/19 22:25 Last Admin: 12/24/18 23:53 Dose: 100 mls/hr Documented by: [id number] Levothyroxine Sodium (Synthroid) 88 mcg PO DAILYBB [facility] Stop: 01/24/19 06:29 Last Admin: 12/25/18 05:38 Dose: 88 mcg Documented by: [id number] Lubiprostone (Amitiza) 24 mcg PO BID [facility] Stop: 01/23/19 23:14 Last Admin: 12/25/18 00:56 Dose: 24 mcg Documented by: [id number] Mirabegron (Myrbetriq Er) 25 mg PO PM [facility] Stop: 01/23/19 22:25 Last Admin: 12/25/18 00:53 Dose: 25 mg Documented by: [id number] Montelukast Sodium (Singulair) 10 mg PO QDD [facility] Stop: 01/23/19 22:25 Last Admin: 12/25/18 00:52 Dose: 10 mg Documented by: [id number] Ondansetron HCl (Zofran) 4 mg IV Q4H PRN PRN Reason: Nausea Stop: 01/23/19 22:25 Last Admin: 12/25/18 01:10 Dose: 4 mg Documented by: [id number] Pantoprazole Sodium (Protonix) 40 mg PO BID [facility] Stop: 01/23/19 22:25 Last Admin: 12/25/18 00:56 Dose: 40 mg Documented by: [id number] Prenat Multivit/[place]/Iron/Folic Ac ( Vitamin) 1 tab PO PM [facility] Stop: 01/23/19 22:25 Last Admin: 12/25/18 00:53 Dose: 1 tab Documented by: [id number] Fluticasone/Salmeterol (Advair Diskus 500/50) 1 puffs INH BID [facility] Stop: 01/23/19 22:25 Last Admin: 12/25/18 00:49 Dose: 1 puffs Documented by: [id number] Topiramate (Topamax) 100 mg PO HS [facility] Stop: 01/23/19 22:59 Last Admin: 12/25/18 00:57 Dose: 100 mg Documented by: [id number] Tramadol HCl (Ultram) 50 mg PO TID PRN PRN Reason: headache Stop: 01/23/19 22:25 Last Admin: 12/25/18 01:10 Dose: 50 mg Documented by: [id number] Trazodone HCl (Desyrel) 150 mg PO HS [facility] Stop: 01/23/19 22:25 Last Admin: 12/25/18 00:55 Dose: 150 mg Documented by: [id number] Zolpidem Tartrate (Ambien) 5 mg PO HS PRN PRN Reason: Sleep Stop: 01/23/19 22:25 Last Admin: 12/25/18 02:05 Dose: 5 mg Documented by: [id number] Discontinued Medications Cefepime HCl (Maxipime) Confirm Administered Dose 2,000 mg .ROUTE .STK-MED ONE Stop: 12/24/18 19:09 Last Admin: 12/24/18 19:11 Dose: Not Given Documented by: [id number] Hydroxyzine HCl (Vistaril) Confirm Administered Dose 25 mg .ROUTE .STK-MED ONE Stop: 12/24/18 21:26 Last Admin: 12/24/18 21:26 Dose: 25 mg Documented by: [id number] Sodium Chloride (Nss 1000ml) 1,000 mls @ 999 mls/hr IV .Q1H1M ONE Stop: 12/24/18 14:30 Last Infusion: 12/24/18 18:50 Dose: 0 mls/hr Documented by: [id number] Admin: 12/24/18 14:48 Dose: 999 mls/hr Documented by: [id number] Sodium Chloride (Nss 1000ml) 1,000 mls @ 999 mls/hr IV .Q1H1M ONE Stop: 12/24/18 15:58 Last Infusion: 12/24/18 20:10 Dose: 0 mls/hr Documented by: [id number] Admin: 12/24/18 19:09 Dose: 999 mls/hr Documented by: [id number] Cefepime HCl (Maxipime) 2,000 mg in 20 mls @ 5 mls/min IV NOW STA; Protocol Stop: 12/24/18 15:03 Last Admin: 12/24/18 19:09 Dose: 5 mls/min Documented by: [id number] Sodium Chloride (Nss 1000ml) 1,000 mls @ 999 mls/hr IV .Q1H1M ONE Stop: 12/24/18 20:05 Last Infusion: 12/24/18 22:23 Dose: 0 mls/hr Documented by: [id number] Admin: 12/24/18 22:23 Dose: 999 mls/hr Documented by: [id number] Ioversol (Optiray 320 100ml) 91 ml IV ONCE PRN PRN Reason: Interaction Checking Stop: 12/28/18 18:56 Last Admin: 12/24/18 18:57 Dose: 91 ml Documented by: [id number] Morphine Sulfate (Morphine Sulfate) 6 mg IV NOW STA Stop: 12/24/18 13:31 Last Admin: 12/24/18 14:48 Dose: 6 mg Documented by: [id number] Morphine Sulfate (Morphine Sulfate) Confirm Administered Dose 6 mg .ROUTE .STK- MED ONE Stop: 12/24/18 14:42 Last Admin: 12/24/18 14:48 Dose: Not Given Documented by: [id number] Morphine Sulfate (Morphine Sulfate) 6 mg IV NOW STA Stop: 12/24/18 15:07 Last Admin: 12/24/18 18:03 Dose: 6 mg Documented by: [id number] Morphine Sulfate (Morphine Sulfate) Confirm Administered Dose 10 mg .ROUTE .STK- MED ONE Stop: 12/24/18 18:01 Last Admin: 12/24/18 18:56 Dose: Not Given Documented by: [id number] Ondansetron HCl (Zofran) 4 mg IV NOW STA Stop: 12/24/18 13:31 Last Admin: 12/24/18 14:48 Dose: 4 mg Documented by: [id number] Ondansetron HCl (Zofran) 4 mg IV NOW STA Stop: 12/24/18 18:35 Last Admin: 12/24/18 19:11 Dose: 4 mg Documented by: [id number] Blood Pressure Blood Pressure Findings: Normal blood pressure Blood Pressure Disposition: did not require urgent referral Discharge Plan Visit Data *Final* Discharge Date/Time: 12/24/18 22:21 Chief Complaint: Abdominal Pain Stated Complaint: PAIN BLADDER,STOMACH ED Provider: Nikolas Mejia Discharge Problem: Intractable abdominal pain, Elevated lactic acid level Patient Disposition: Admitted As Inpatient Discharge Instructions Interventions: ED Discharge Assessment Last Done: 12/24/18 22:21 The scribe's documentation has been prepared under my direction and personally reviewed by me in its entirety. I confirm that the note above accurately reflects all work, treatment, procedures, and medical decision making performed by me.
[2018-12-25] MEDS: PATIENT'S HEIGHT AND/OR WEIGHT NEEDED SCH ×2 (09:18→09:25)
[2018-12-25] MEDS: POLYETHYLENE (MIRALAX) 17 GM PACK PO SCH ×2 (09:21→13:04)
[2018-12-25] MEDS: VENLAFAXINE HCL XR 150 MG CAPXR PO SCH (09:22)
[2018-12-25] MEDS: CYANOCOBALAMIN 500 MCG TABLET (VITAMIN B-12) PO SCH (09:24)
[2018-12-25] MEDS: HYOSCYAMINE SULFATE 0.125 MG TAB PO SCH ×3 (09:25→16:01)
[2018-12-25] MEDS: BuPROPion SR 100 MG TABCR PO SCH (09:25)
[2018-12-25] MEDS: POTASSIUM CHLORIDE 10 MEQ in SODIUM CHLORIDE 0.9% 1000ML 1,000 ML IV SCH ×2 (09:26→20:41)
[2018-12-25] MEDS: BREXPIPRAZOLE PO SCH (09:27)
[2018-12-25] MEDS: MEXILETINE HCL PO SCH ×3 (09:29→20:52)
[2018-12-25] MEDS: DOCUSATE SODIUM/SENNA 50/8.6MG TAB PO SCH (09:30)
[2018-12-25] MEDS ORDERED: VANCOMYCIN CONSULT ACTIVE PRN (09:31)
[2018-12-25] MEDS: TOPIRAMATE PO SCH (09:31)
[2018-12-25] MEDS: CEFEPIME 2,000 MG in SYRINGE 7.5 ML IV SCH ×2 (10:47→18:05)
[2018-12-25] MEDS ORDERED: TOBRAMYCIN SULFATE IV ONE (11:00)
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
--- NOTE | 2018-12-25 12:08 | Pharmacy Report ---
Pharmacy Abx Initial Consult - Date of Service December 25, 2018 - Pharmacy Dosing Scope Date of Consult: 12/25/18 Consultation requested by: Dr. Joseph Pharmacy is consulted to initiate Tobramycin IV dosing therapy, order appropriate labs and adjust drug dose/frequency. - Subjective The patient is a 33 year old F admitted on 12/24/18 21:50. - Objective Height: 3 ft 11 in Weight: 116.1 kg Vital Signs (Past 12hrs): Vital Signs Temp Pulse Resp BP Pulse Ox 12/25/18 07:27 36.7 C 111 H 22 123/77 91 Lab Results (24hrs): Laboratory Tests (24 Hours) 12/25/18 12/25/18 12/25/18 05:49 05:49 05:49 WBC 8.04 Neut # (Auto) 5.93 Creatinine 0.73 Est Cr Clr Drug Dosing Not Reportable C-Reactive Protein Random Tobramycin 1.50 12/24/18 12/24/18 12/24/18 13:55 13:55 13:55 WBC 7.95 Neut # (Auto) 5.33 Creatinine 0.74 Est Cr Clr Drug Dosing Not Reportable C-Reactive Protein 2.77 H Random Tobramycin 16.60 H* Micro Results: Microbiology 12/24/18 15:36 Blood Aerobic Blood Culture - Preliminary 12/24/18 15:36 Blood Anaerobic Blood Culture - Preliminary Gram negative bacilli Gram negative bacilli Gram positive cocci in chains - Risk Factors for Resistance * History of infection with a multidrug-resistant organism: P. aeruginosa in urine culture multiple times (most recent resistant to FQs and Gent); MRSA in urine culture; Citrobacter in urine culture * Antimicrobial use within the last 90 days: Tobramycin prior to admission - Assessment & Plan Assessment 33 year old F admitted for sepsis secondary to Gram-negative and Gram-positive bacteria in blood cultures Patient started on IV Cefepime in addition to her current home dose of IV Tobramycin Currently on Tobramycin 585 mg (5 mg/kg of Actual Body Weight) IV every 24 hours outpatient per ID physician (Day # 12/09) Patient does have a PMHx significant for multiple, recurrent UTIs (most recently, Pseudomonas aeruginosa which is being treated outpatient with Tobramycin) Patient has many antibiotic allergies Random Tobramycin level this morning was 1.50 mcg/mL (compared to 16.60 mcg/mL upon admission yesterday) Plan IV Tobramycin for treatment of UTI/Gram-negative bacteremia Tobramycin * Patient will be dosed as she was on outpatient basis per ID physician * Dose: 585 mg (5 mg/kg) IV every 24 hours * Dosage based on actual body weight per ID physician * No levels will be ordered at this time as patient is on Day #7/7 of tobramycin therapy IV Cefepime to be continued per ID Pharmacy will continue to follow and will adjust dose/frequency as necessary. Thank you.
[2018-12-25] MEDS ORDERED: FLUCONAZOLE 50 MG TAB PO ONE (16:32)
[2018-12-25] MEDS ORDERED: POLYETHYLENE (MIRALAX) 17 GM PACK PO ONE (16:38)
[2018-12-25] MEDS: POTASSIUM CHLORIDE 20 MEQ TABCR PO SCH ×2 (17:55→20:51)
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
[2018-12-25] MEDS: ALBUTEROL HFA 8 GM INHALER INH PRN (20:49)
[2018-12-25] MEDS: BISACODYL 5 MG TABEC PO SCH (21:04)
[2018-12-26] MEDS: CEFEPIME 2,000 MG in SYRINGE 7.5 ML IV SCH ×3 (01:38→18:20)
[2018-12-26] MEDS: POTASSIUM CHLORIDE 10 MEQ in SODIUM CHLORIDE 0.9% 1000ML 1,000 ML IV SCH (05:12)
[2018-12-26] MEDS: LEVOTHYROXINE SODIUM 88 MCG TABLET PO SCH (06:59)
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
[2018-12-26] MEDS: HYOSCYAMINE SULFATE 0.125 MG TAB PO SCH ×3 (07:57→18:15)
[2018-12-26 08:12] LABS: Basophils # (auto) 0.02 K/uL (0-0.2); Basophils % (auto) 0.4 %; Eosinophils # (auto) 0.22 K/uL (0-0.5); Eosinophils % (auto) 4.2 %; Hematocrit (blood only) 35.1 % (37-47); Hemoglobin 10.8 g/dL (12.0-16.0); Immature Granulocytes # (auto) 0.02 K/uL (0.00-0.02); Immature Granulocytes % (auto) 0.4 %; Lymphocytes # (auto) 1.29 K/uL (1.2-3.4); Lymphocytes % (auto) 24.9 %; Mean Corpuscular Hgb Conc 30.8 g/dL (32-36); Mean Corpuscular Volume 94.6 fL (80-100); Mean Platelet Volume 9.9 fL (7.4-10.4); Monocytes # (auto) 0.55 K/uL (0.11-0.59); Monocytes % (auto) 10.6 %; Neutrophils # (auto) 3.08 K/uL (1.4-6.5); Neutrophils % (auto) 59.5 %; Platelet Count 207 K/uL (130-400); RDW Coefficient of Variation 15.6 % (11.5-14.5); RDW Standard Deviation 53.9 fL (36.4-46.3); Red Blood Count 3.71 M/uL (4.2-5.4); White Blood Count 5.18 K/uL (4.8-10.8)
[2018-12-26 08:59] LABS: BUN Creatinine Ratio 9.6 (10-20); Calcium 8.3 mg/dl (8.5-10.1); Creatinine Clr Calc Pharmacy 112.2 ml/min; Est GFR (African American) 137.8; Est GFR (Non-African American) 118.9; Potassium 3.6 mmol/L (3.5-5.1)
[2018-12-26] MEDS ORDERED: POLYETHYLENE (MIRALAX) 17 GM PACK PO SCH (09:00)
[2018-12-26] MEDS: CYANOCOBALAMIN 500 MCG TABLET (VITAMIN B-12) PO SCH (10:18)
[2018-12-26] MEDS: BuPROPion SR 100 MG TABCR PO SCH (10:18)
[2018-12-26] MEDS: FLUTICASONE/SALMETEROL (ADVAIR) 500/50 INH 14 PUFF INH SCH ×2 (10:19→20:33)
[2018-12-26] MEDS: DOCUSATE SODIUM/SENNA 50/8.6MG TAB PO SCH (10:19)
[2018-12-26] MEDS: PANTOprazole 40 MG TAB PO SCH ×2 (10:19→20:35)
[2018-12-26] MEDS: BENZTROPINE MESYLATE 1 MG TAB PO SCH ×2 (10:19→20:36)
[2018-12-26] MEDS: POTASSIUM CHLORIDE 20 MEQ TABCR PO SCH ×4 (10:19→20:35)
[2018-12-26] MEDS: VENLAFAXINE HCL XR 150 MG CAPXR PO SCH (10:19)
[2018-12-26] MEDS: LUBIPROSTONE 8 MCG CAP PO SCH ×2 (10:19→20:38)
[2018-12-26] MEDS: BREXPIPRAZOLE PO SCH (10:20)
[2018-12-26] MEDS: APIXABAN 5 MG TABLET PO SCH ×2 (10:20→20:34)
[2018-12-26] MEDS: MEXILETINE HCL PO SCH ×3 (10:21→20:33)
[2018-12-26] MEDS: TOPIRAMATE PO SCH (10:22)
[2018-12-26] MEDS: POLYETHYLENE (MIRALAX) 17 GM PACK PO SCH ×2 (12:55→20:36)
[2018-12-26] MEDS: MONTELUKAST SODIUM 10 MG TABLET PO SCH (15:51)
[2018-12-26] MEDS: HEPARIN 100 UNIT/ML 5ML FLUSH FLUSH PRN (18:20)
[2018-12-26] MEDS: ALBUTEROL HFA 8 GM INHALER INH PRN (20:32)
[2018-12-26] MEDS: TOPIRAMATE 100 MG TAB PO SCH (20:34)
[2018-12-26] MEDS: MIRABEGRON ER 25 MG TAB PO SCH (20:34)
[2018-12-26] MEDS: BISACODYL 5 MG TABEC PO SCH (20:35)
[2018-12-26] MEDS: PRENATAL VITAMIN 1 TAB PO SCH (20:36)
[2018-12-26] MEDS: FAMOTIDINE 20 MG TAB PO SCH (20:37)
[2018-12-26] MEDS: TRAZODONE HCL 50 MG TAB PO SCH (20:38)
[2018-12-26] MEDS: NYSTATIN CR 15 GM TUBE EXT PRN (22:11)
--- NOTE | 2018-12-26 23:20 | Infectious Disease Progress Nt ---
Date of Service December 26, 2018 Assessment & Plan (1) Gram negative sepsis: 33-year-old female with recurrent urinary tract infections in the setting of suprapubic catheter, recently treated with tobramycin for pseudomonal infection, now presents with sepsis with gram-negative bacteria and blood cultures. Second set with gram-positive cocci, likely latter is not a significant pathogen. Patient to receive additional dose of tobramycin today and continue on cefepime pending final identification and sensitivities. Will follow. (2) Urinary tract infection: Subjective patient is resting comfortably in bed. states that despite several BMs passed last night, her abdominal pain is unchanged. She continues to endorse nausea, but is eating solid food. She continues to have burning with urination. Review of Systems Review of Systems: All systems reviewed & are unremarkable except as noted in HPI & below Physical Exam Constitutional: WD/WN, vitals as above + obese; no acute distress Eyes: PERRL, conjunctivae normal, anicteric sclerae ENMT: external ear and nose normal, oropharynx normal Neck: trachea midline, no thyromegaly Respiratory: normal respiratory effort, lungs clear to auscultation Cardiovascular: RRR, no murmur, no edema Heart Sounds: no gallop and no cardiac rub Gastrointestinal (Abdomen): normal bowel sounds, soft, nontender, no hepatosplenomegaly Musculoskeletal: Head/Neck/Chest: normocephalic and head atraumatic Skin: no rashes, warm and dry Neurologic: awake; no meningeal signs Psychiatric: A+Ox3, euthymic affect Lymphatic: no cervical or axillary lymphadenopathy no inguinal lymphadenopathy Results & Data Vital Signs (Past 12 Hours) Vital Signs Temp Pulse Pulse Resp BP Pulse Ox 12/26/18 23:13 36.6 C 111 H 16 114/74 95 12/26/18 15:00 36.7 C 107 H 20 108/67 97 Laboratory Results Short CBC 12/26/18 Range/Units 07:56 WBC 5.18 (4.8-10.8) K/uL Hgb 10.8 L (12.0-16.0) g/dL Hct 35.1 L (37-47) % Plt Count 207 (130-400) K/uL BMP 12/26/18 07:56 Sodium 143 Potassium 3.6 D Chloride 112 H Carbon Dioxide 23 BUN 6 L Creatinine 0.64 Glucose 125 H Calcium 8.3 L Diagnostic Findings Microbiology 12/24/18 15:20 Blood Aerobic Blood Culture - Preliminary No growth in Aerobic bottle after 48 hours. 12/24/18 15:20 Blood Anaerobic Blood Culture - Preliminary No growth in Anaerobic bottle after 48 hours. 12/24/18 15:36 Blood Aerobic Blood Culture - Preliminary Gram negative bacilli 12/24/18 15:36 Blood Anaerobic Blood Culture - Preliminary Gram negative bacilli Gram positive cocci in chains (1) Urinary tract infection Hematuria presence: without hematuria Urinary tract infection type: site unspecified Qualified Code(s): N39.0 - Urinary tract infection, site not specified
[2018-12-27] MEDS: CEFEPIME 2,000 MG in SYRINGE 7.5 ML IV SCH ×3 (01:38→16:37)
[2018-12-27] MEDS: HEPARIN 100 UNIT/ML 5ML FLUSH FLUSH PRN ×3 (01:38→16:56)
[2018-12-27] MEDS: LEVOTHYROXINE SODIUM 88 MCG TABLET PO SCH (05:33)
[2018-12-27] MEDS: CYANOCOBALAMIN 500 MCG TABLET (VITAMIN B-12) PO SCH (09:51)
[2018-12-27] MEDS: BuPROPion SR 100 MG TABCR PO SCH (09:51)
[2018-12-27] MEDS: LUBIPROSTONE 8 MCG CAP PO SCH ×2 (09:52→22:53)
[2018-12-27] MEDS: BENZTROPINE MESYLATE 1 MG TAB PO SCH ×2 (09:52→22:01)
[2018-12-27] MEDS: HYOSCYAMINE SULFATE 0.125 MG TAB PO SCH ×3 (09:52→16:34)
[2018-12-27] MEDS: APIXABAN 5 MG TABLET PO SCH ×2 (09:52→22:03)
[2018-12-27] MEDS: FLUTICASONE/SALMETEROL (ADVAIR) 500/50 INH 14 PUFF INH SCH ×2 (09:52→21:58)
[2018-12-27] MEDS: PANTOprazole 40 MG TAB PO SCH ×2 (09:52→22:04)
[2018-12-27] MEDS: VENLAFAXINE HCL XR 150 MG CAPXR PO SCH (09:52)
[2018-12-27] MEDS: BREXPIPRAZOLE PO SCH (09:53)
[2018-12-27] MEDS: MEXILETINE HCL PO SCH ×3 (09:53→22:03)
[2018-12-27] MEDS: DOCUSATE SODIUM/SENNA 50/8.6MG TAB PO SCH (09:53)
[2018-12-27] MEDS: POLYETHYLENE (MIRALAX) 17 GM PACK PO SCH ×3 (09:54→22:03)
[2018-12-27] MEDS: TOPIRAMATE PO SCH (09:54)
[2018-12-27] MEDS: MONTELUKAST SODIUM 10 MG TABLET PO SCH (16:35)
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
[2018-12-27] MEDS: ONDANSETRON INJ 2 MG/ML 2 ML VIAL IV PRN (17:16)
[2018-12-27] MEDS: NYSTATIN CR 15 GM TUBE EXT PRN (21:59)
[2018-12-27] MEDS: TRAZODONE HCL 50 MG TAB PO SCH (22:02)
[2018-12-27] MEDS: BISACODYL 5 MG TABEC PO SCH (22:02)
[2018-12-27] MEDS: MIRABEGRON ER 25 MG TAB PO SCH (22:03)
[2018-12-27] MEDS: PRENATAL VITAMIN 1 TAB PO SCH (22:04)
[2018-12-27] MEDS: FAMOTIDINE 20 MG TAB PO SCH (22:04)
[2018-12-27] MEDS: TOPIRAMATE 100 MG TAB PO SCH (22:05)
[2018-12-28] MEDS: CEFEPIME 2,000 MG in SYRINGE 7.5 ML IV SCH ×2 (01:58→10:29)
[2018-12-28] MEDS: HEPARIN 100 UNIT/ML 5ML FLUSH FLUSH PRN ×3 (05:29→14:30)
[2018-12-28] MEDS: LEVOTHYROXINE SODIUM 88 MCG TABLET PO SCH (06:08)
[2018-12-28 06:37] LABS: Basophils # (auto) 0.04 K/uL (0-0.2); Basophils % (auto) 0.7 %; Eosinophils # (auto) 0.21 K/uL (0-0.5); Eosinophils % (auto) 3.6 %; Hematocrit (blood only) 36.4 % (37-47); Hemoglobin 11.4 g/dL (12.0-16.0); Immature Granulocytes # (auto) 0.04 K/uL (0.00-0.02); Immature Granulocytes % (auto) 0.7 %; Lymphocytes # (auto) 1.79 K/uL (1.2-3.4); Lymphocytes % (auto) 30.7 %; Mean Corpuscular Hgb Conc 31.3 g/dL (32-36); Mean Corpuscular Volume 94.3 fL (80-100); Mean Platelet Volume 9.9 fL (7.4-10.4); Monocytes # (auto) 0.68 K/uL (0.11-0.59); Monocytes % (auto) 11.7 %; Neutrophils # (auto) 3.07 K/uL (1.4-6.5); Neutrophils % (auto) 52.6 %; Platelet Count 269 K/uL (130-400); RDW Coefficient of Variation 15.9 % (11.5-14.5); RDW Standard Deviation 53.7 fL (36.4-46.3); Red Blood Count 3.86 M/uL (4.2-5.4); White Blood Count 5.83 K/uL (4.8-10.8)
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
[2018-12-28] MEDS: HYOSCYAMINE SULFATE 0.125 MG TAB PO SCH ×2 (07:36→12:14)
[2018-12-28] MEDS: FLUTICASONE/SALMETEROL (ADVAIR) 500/50 INH 14 PUFF INH SCH (09:06)
[2018-12-28] MEDS: LUBIPROSTONE 8 MCG CAP PO SCH (09:07)
[2018-12-28] MEDS: BREXPIPRAZOLE PO SCH (09:08)
[2018-12-28] MEDS: VENLAFAXINE HCL XR 150 MG CAPXR PO SCH (09:09)
[2018-12-28] MEDS: BENZTROPINE MESYLATE 1 MG TAB PO SCH (09:09)
[2018-12-28] MEDS: MEXILETINE HCL PO SCH ×2 (09:10→13:39)
[2018-12-28] MEDS: APIXABAN 5 MG TABLET PO SCH (09:10)
[2018-12-28] MEDS: DOCUSATE SODIUM/SENNA 50/8.6MG TAB PO SCH (09:11)
[2018-12-28] MEDS: PANTOprazole 40 MG TAB PO SCH (09:11)
[2018-12-28] MEDS: TOPIRAMATE PO SCH (09:13)
[2018-12-28] MEDS: POLYETHYLENE (MIRALAX) 17 GM PACK PO SCH ×2 (09:14→14:30)
[2018-12-28] MEDS: CYANOCOBALAMIN 500 MCG TABLET (VITAMIN B-12) PO SCH (09:15)
[2018-12-28] MEDS: BuPROPion SR 100 MG TABCR PO SCH (09:15)
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
[2018-12-28] MEDS ORDERED: cefTRIAXone SODIUM 2,000 MG in DEXTROSE 5% 50 ML IV ONE (12:15)
--- NOTE | 2019-01-07 07:22 | Coding Query ---
SEPSIS To promote full compliance with coding requirements relating to patient care, physician participation is requested in all cases of remote medical coder uncertainty. Please assist us with the question(s) below: In responding to this query, please exercise your independent professional judgement. The fact that a question is asked does not imply that any particular answer is desired or expected. We appreciate your clarification on this issue. Throughout the medical record, you have clearly documented a localized infection and your patient has clinical evidence of a generalized sepsis or severe sepsis. The term urosepsis is a nonspecific entity and is coded as an UTI. If the patient has sepsis, severe sepsis, from an urinary source or some other source, please clarify in your response below. The medical record reflects the following clinical findings: Patient admitted with mdr uti d/t suprapubic catheter. Infectious disease and Urology progress notes document sepsis. Family Medicine notes document gram negative sepsis. Please check below the diagnosis that was treated during this inpatient stay. Thank you ! Shashi White [facility] ____ ( )Bacteremia (Nonspecific laboratory finding of bacteria in the blood) Specify Organism ( x) Present on Admission ( ) Not present on admission ( ) Unable to clinically determine () Septicemia (Systemic disease associated with the presence of pathogenic microorganisms in the blood): Specify Organism ( ) Present on Admission ( x) Not present on admission ( ) Unable to clinically determine ( ) Sepsis Specify Organism Specify Associated Condition/Diagnosis ( ) Present on Admission ( x) Not present on admission ( ) Unable to clinically determine ( ) Severe Sepsis (Sepsis associated with acute organ dysfunction) Specify Organism Specify Associated Condition/Diagnosis ( ) Present on Admission ( x) Not present on admission ( ) Unable to clinically determine ( ) Septic Shock (Severe sepsis with acute circulatory failure, unexplained by other causes) ( ) Present on Admission (x ) Not present on admission ( ) Unable to clinically determine ( ) Other, patient has: MTDD
== END 2018-12-28 14:50 | disposition home health service (06) | DRG 699 ==
LOC: 3W 12:45 → ED 12:45 → 3W 22:21 → SUATTDRO 12-26 09:48

== ENCOUNTER 2019-02-05 16:55 | Inpatient (IN) ==
[2019-02-05] MEDS ORDERED: DIHYDROERGOTAMINE MESYLATE 1 MG/ML VIAL IM PRN (17:47)
[2019-02-05] MEDS ORDERED: POLYETHYLENE (MIRALAX) 17 GM PACK PO PRN (17:47)
[2019-02-05] MEDS ORDERED: METOCLOPRAMIDE HCL 10 MG TABLET PO PRN (17:47)
[2019-02-05] MEDS ORDERED: ACETAMINOPHEN 325 MG TAB PO PRN (17:47)
[2019-02-05] MEDS ORDERED: BOTULINUM TOXIN TYPE A 100 UNIT VIAL IM SCH (17:47)
[2019-02-05] MEDS ORDERED: METHYLENE BLUE TOP SCH (17:47)
[2019-02-05] MEDS ORDERED: FREMANEZUMAB VFRM 225 MG SQ SCH (17:47)
[2019-02-05] MEDS ORDERED: HALOPERIDOL 1 MG TAB PO PRN (17:47)
[2019-02-05] MEDS ORDERED: LEVALBUTEROL HCL 0.63 MG/3 ML NEB INH PRN (17:47)
[2019-02-05] MEDS ORDERED: ONDANSETRON 8MG OD TAB PO PRN (17:47)
[2019-02-05] MEDS ORDERED: PROMETHAZINE HCL 25 MG TAB PO PRN (17:47)
[2019-02-05] MEDS ORDERED: KETAMINE INTNAS PRN (17:47)
[2019-02-05] MEDS ORDERED: GENTIAN VIOLET TOP SCH (17:47)
[2019-02-05] MEDS ORDERED: TRAMADOL HCL 50 MG TABLET PO PRN (17:47)
[2019-02-05] MEDS ORDERED: POLYVINYL ALCOHOL TOP SCH (17:47)
[2019-02-05] MEDS ORDERED: ALUMINUM/MAGNESIUM SUSP 30 ML UDC PO PRN (17:47)
[2019-02-05] MEDS ORDERED: ALBUTEROL HFA 8 GM INHALER INH PRN (19:00)
[2019-02-05] MEDS: HEPARIN 100 UNIT/ML 5ML FLUSH FLUSH PRN (19:55)
[2019-02-05] MEDS ORDERED: AMPHOTERICIN B 50 MG in WATER, STERILE 1,000 ML IR SCH (20:00)
[2019-02-05] MEDS: OXYCODONE HCL IR 5 MG TAB (IMMEDIATE RELEASE) PO PRN (20:12)
[2019-02-05] MEDS ORDERED: EUCERIN CR 120 GM JAR EXT PRN (20:14)
[2019-02-05] MEDS ORDERED: TOPIRAMATE 100 MG PO SCH (21:00)
[2019-02-05] MEDS: PENTOSAN POLYSULFATE SODIUM 100 MG CAP PO SCH (21:34)
[2019-02-05] MEDS: FLUTICASONE/SALMETEROL (ADVAIR) 500/50 INH 14 PUFF INH SCH (21:34)
[2019-02-05] MEDS: PRENATAL VITAMIN 1 TAB PO SCH (21:35)
[2019-02-05] MEDS: TRAZODONE HCL 50 MG TAB PO SCH (21:35)
[2019-02-05] MEDS: BENZTROPINE MESYLATE 1 MG TAB PO SCH (21:35)
[2019-02-05] MEDS: PANTOprazole 40 MG TAB PO SCH (21:36)
[2019-02-05] MEDS: MIRABEGRON ER 25 MG TAB PO SCH (21:37)
[2019-02-05] MEDS: TRIAMCINOLONE ACET 0.1% CR 80 GM TUBE TOP SCH (21:37)
[2019-02-05] MEDS: APIXABAN 5 MG TABLET PO SCH (21:37)
[2019-02-05] MEDS: CETIRIZINE HCL 10 MG TABLET PO SCH (21:38)
[2019-02-05] MEDS: POLYETHYLENE (MIRALAX) 17 GM PACK PO SCH (21:39)
[2019-02-05] MEDS: POTASSIUM CHLORIDE 20 MEQ TABCR PO SCH (21:39)
[2019-02-05] MEDS: LACTOBACILLUS ACIDOPHILUS (FLORANEX) TAB PO SCH (21:40)
[2019-02-05] MEDS: SILVER SULFADIAZINE 1% CR 50 GM JAR TOP SCH (21:40)
[2019-02-05] MEDS: WATER IR SCH (22:00)
[2019-02-05] MEDS: STERILE IR SCH (22:00)
[2019-02-05] MEDS: AMPHOTERICIN B IR SCH (22:00)
[2019-02-05] MEDS: MEXILETINE HCL PO SCH (22:01)
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
[2019-02-05 23:36] LABS: Basophils # (auto) 0.04 K/uL (0-0.2); Basophils % (auto) 0.7 %; Eosinophils # (auto) 0.31 K/uL (0-0.5); Eosinophils % (auto) 5.2 %; Hematocrit (blood only) 34.8 % (37-47); Hemoglobin 10.8 g/dL (12.0-16.0); Immature Granulocytes # (auto) 0.01 K/uL (0.00-0.02); Immature Granulocytes % (auto) 0.2 %; Lymphocytes % (auto) 42.1 %; Mean Platelet Volume 9.8 fL (7.4-10.4); Monocytes # (auto) 0.74 K/uL (0.11-0.59); Monocytes % (auto) 12.5 %; Neutrophils # (auto) 2.34 K/uL (1.4-6.5); Neutrophils % (auto) 39.3 %; Platelet Count 213 K/uL (130-400); RDW Coefficient of Variation 15.6 % (11.5-14.5); RDW Standard Deviation 53.1 fL (36.4-46.3); Red Blood Count 3.74 M/uL (4.2-5.4); White Blood Count 5.94 K/uL (4.8-10.8)
[2019-02-05 23:56] LABS: Albumin Level 2.7 gm/dl (3.4-5.0); Calcium 8.3 mg/dl (8.5-10.1); Creatinine Clr Calc Pharmacy 115.3 ml/min; Est GFR (African American) 108.9; Potassium 3.4 mmol/L (3.5-5.1)
[2019-02-06] LABS: Albumin Globulin Ratio 0.7 (0.9-2); Bilirubin,Total 0.2 mg/dl (0.2-1); Globulin 3.9 gm/dl (2.5-4.0); Total Protein 6.6 gm/dl (6.4-8.2)
[2019-02-06] MEDS ORDERED: SODIUM CHLORIDE 0.9% 1000ML 250 ML IV ONE (00:46)
[2019-02-06 01:27] LABS: Appearance Urine Cloudy (Clear); Bacteria Urine Automated 1+ (Negative); Bilirubin Urine Negative (Negative); Blood Urine 2+ (Negative); Color Urine Yellow; Epithelial Cell Urine Auto >30 /lpf (0-5); Glucose Urine UA Negative (Negative); Ketones Urine Negative (Negative); Leukocyte Esterase Urine 3+ (Negative); Nitrite Urine Positive (Negative); Protein Urine Negative (Negative); RBC Urine Automated 0-4 /hpf (0-4); Specific Gravity Urine 1.012 (1.000-1.030); Urobilinogen Urine Negative (Negative); WBC Urine Automated >30 /hpf (0-5); pH Urine 5.5 (4.5-7.5)
[2019-02-06] MEDS: AMPHOTERICIN B IR SCH ×6 (02:01→21:56)
[2019-02-06] MEDS: STERILE IR SCH ×6 (02:01→21:56)
[2019-02-06] MEDS: WATER IR SCH ×6 (02:01→21:56)
[2019-02-06] MEDS: HEPARIN 100 UNIT/ML 5ML FLUSH FLUSH PRN ×2 (02:59→05:45)
[2019-02-06 06:07] LABS: Basophils # (auto) 0.03 K/uL (0-0.2); Basophils % (auto) 0.6 %; Eosinophils # (auto) 0.38 K/uL (0-0.5); Hematocrit (blood only) 33.8 % (37-47); Hemoglobin 10.5 g/dL (12.0-16.0); Immature Granulocytes # (auto) 0.01 K/uL (0.00-0.02); Immature Granulocytes % (auto) 0.2 %; Lymphocytes # (auto) 2.35 K/uL (1.2-3.4); Lymphocytes % (auto) 49.6 %; Mean Corpuscular Hgb Conc 31.1 g/dL (32-36); Mean Corpuscular Volume 93.6 fL (80-100); Mean Platelet Volume 10.2 fL (7.4-10.4); Monocytes # (auto) 0.52 K/uL (0.11-0.59); Neutrophils # (auto) 1.45 K/uL (1.4-6.5); Neutrophils % (auto) 30.6 %; Platelet Count 201 K/uL (130-400); RDW Coefficient of Variation 15.5 % (11.5-14.5); RDW Standard Deviation 53.3 fL (36.4-46.3); Red Blood Count 3.61 M/uL (4.2-5.4); White Blood Count 4.74 K/uL (4.8-10.8)
[2019-02-06] MEDS: SILVER SULFADIAZINE 1% CR 50 GM JAR TOP SCH ×4 (06:15→21:40)
[2019-02-06] MEDS: LEVOTHYROXINE SODIUM 88 MCG TABLET PO SCH (06:17)
[2019-02-06 06:50] LABS: Albumin Level 2.6 gm/dl (3.4-5.0); BUN Creatinine Ratio 11.4 (10-20); Calcium 8.7 mg/dl (8.5-10.1); Creatinine Clr Calc Pharmacy 125.2 ml/min; Est GFR (African American) 117.4; Est GFR (Non-African American) 101.3; Potassium 3.4 mmol/L (3.5-5.1)
[2019-02-06 06:52] LABS: Albumin Globulin Ratio 0.7 (0.9-2); Bilirubin,Total 0.2 mg/dl (0.2-1); Globulin 3.8 gm/dl (2.5-4.0); Total Protein 6.4 gm/dl (6.4-8.2)
[2019-02-06] MEDS ORDERED: POTASSIUM CHLORIDE 20 MEQ TABCR PO STA (08:03)
[2019-02-06] MEDS: HYOSCYAMINE SULFATE 0.125 MG TAB PO SCH ×3 (08:27→17:37)
[2019-02-06] MEDS: CETIRIZINE HCL 10 MG TABLET PO SCH ×2 (08:27→21:56)
[2019-02-06] MEDS: TAMSULOSIN HCL 0.4 MG CAP PO SCH (08:27)
[2019-02-06] MEDS: PENTOSAN POLYSULFATE SODIUM 100 MG CAP PO SCH ×3 (08:27→21:37)
[2019-02-06] MEDS: CYANOCOBALAMIN 500 MCG TABLET (VITAMIN B-12) PO SCH (08:27)
[2019-02-06] MEDS: VENLAFAXINE HCL XR 150 MG CAPXR PO SCH (08:27)
[2019-02-06] MEDS: BuPROPion SR 100 MG TABCR PO SCH (08:27)
[2019-02-06] MEDS: FLUTICASONE/SALMETEROL (ADVAIR) 500/50 INH 14 PUFF INH SCH ×2 (08:28→21:44)
[2019-02-06] MEDS: MAGNESIUM OXIDE 400 MG TAB PO SCH (08:28)
[2019-02-06] MEDS: POTASSIUM CHLORIDE 20 MEQ TABCR PO SCH ×2 (08:28→21:37)
[2019-02-06] MEDS: REXULTI 3 MG PO SCH (08:29)
[2019-02-06] MEDS: MEXILETINE HCL PO SCH ×3 (08:30→21:37)
[2019-02-06] MEDS: BENZTROPINE MESYLATE 1 MG TAB PO SCH ×2 (08:30→21:36)
[2019-02-06] MEDS: TRIAMCINOLONE ACET 0.1% CR 80 GM TUBE TOP SCH ×3 (08:30→21:45)
[2019-02-06] MEDS: POLYETHYLENE (MIRALAX) 17 GM PACK PO SCH ×3 (08:32→21:38)
[2019-02-06] MEDS: PANTOprazole 40 MG TAB PO SCH ×2 (08:32→21:36)
[2019-02-06] MEDS ORDERED: KETOCONAZOLE 2% CR 15 GM TUBE EXT SCH (09:00)
[2019-02-06] MEDS ORDERED: REXULTI 3 MG PO SCH (09:00)
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
[2019-02-06] MEDS: APIXABAN 5 MG TABLET PO SCH ×2 (11:36→21:36)
[2019-02-06] MEDS: KETOCONAZOLE 2% CR 15 GM TUBE EXT PRN ×3 (14:19→23:02)
[2019-02-06] MEDS: NYSTATIN POWDER 15GM BTL EXT PRN (14:22)
[2019-02-06] MEDS: OXYCODONE HCL IR 5 MG TAB (IMMEDIATE RELEASE) PO PRN (16:29)
--- NOTE | 2019-02-06 19:28 | Hospitalist Progress Note ---
Date of Service February 06, 2019 Assessment & Plan (1) Candidal urinary tract infection: Suprapubic catheter candidal UTI present on admission Antifungal/antibiotics per infectious disease and urology. Fortunately does not appear to be septic. (2) Open wound of perineum: Wound care (3) Sleep apnea: CPAP at bedtime (4) Hypothyroidism: Continue Synthroid (5) Anxiety: Offered reassurance, empathy and compassion. Patient was laughing and smiling with me when I was in the room. In regards to insomnia, a low dose of Seroquel at bedtime in the hospital does appear to be reasonable, especially given that she is been on it in the past and it has helped. Later I am informed that she is expressing suicidality. Will investigate further, but given the complexity of her psychiatric history, and her expressed suicidality, will need to formally consult psychiatry because of the circumstances (6) Spina bifida: Paraplegia due to spina bifida (7) Morbid obesity: (8) DVT prophylaxis: anticoagulated Subjective Feeling okay whenever I saw her. No acute complaints. Awaiting input from urology and infectious disease. She notes she had a rough time sleeping last night and was very anxious. She notes before Seroquel at bedtime has helped. She notes that having her mom present helps with her anxiety a lot. Review of Systems Review of Systems: All systems reviewed & are unremarkable except as noted in HPI & below Physical Exam Physical Exam: In general she is awake and alert pleasant no distress. HEENT normocephalic atraumatic mucous members moist. Breathing unlabored no accessory muscle use good effort. Skin shows no rashes no pallor or icterus. Neuro shows no focal deficits. Results & Data Vital Signs (Past 12 Hours) Vital Signs Temp Pulse Pulse Resp BP Pulse Ox 02/06/19 15:34 98.2 F 108 H 24 128/93 89 L 02/06/19 13:27 97.5 F L 107 H 107 H 17 141/85 H 97 02/06/19 11:18 97.9 F 106 H 17 115/75 93 PG Care Time/CCT Total # of Minutes Spent Total Time Spent with Patient: Total time spent is greater than 50% in coordination of care (as documented) at patient's floor/unit and/or counseling patient: (1) Spina bifida Spinal region: unspecified Presence of hydrocephalus: with hydrocephalus Qualified Code(s): Q05.4 - Unspecified spina bifida with hydrocephalus
[2019-02-06] MEDS ORDERED: QUETIAPINE FUMARATE 25 MG TABLET PO SCH (21:00)
[2019-02-06] MEDS ORDERED: TOPIRAMATE 100 MG PO SCH (21:00)
[2019-02-06] MEDS: LACTOBACILLUS ACIDOPHILUS (FLORANEX) TAB PO SCH (21:35)
[2019-02-06] MEDS: PRENATAL VITAMIN 1 TAB PO SCH (21:36)
[2019-02-06] MEDS: MIRABEGRON ER 25 MG TAB PO SCH (21:36)
[2019-02-06] MEDS: TRAZODONE HCL 50 MG TAB PO SCH (21:36)
[2019-02-06] MEDS: TOPIRAMATE 100 MG PO SCH (21:40)
[2019-02-07] MEDS: LEVOTHYROXINE SODIUM 88 MCG TABLET PO SCH (06:20)
[2019-02-07] MEDS: SILVER SULFADIAZINE 1% CR 50 GM JAR TOP SCH ×2 (06:20→13:18)
--- NOTE | 2019-02-07 08:41 | Hospitalist Progress Note ---
Date of Service February 07, 2019 Assessment & Plan (1) Candidal urinary tract infection: Suprapubic catheter candidal UTI present on admission Antifungal/antibiotics per infectious disease and urology. Fortunately does not appear (2) Open wound of perineum: Wound care (3) Sleep apnea: CPAP at bedtime (4) Hypothyroidism: Continue Synthroid (5) Anxiety: Offered reassurance, empathy and compassion. Patient was laughing and smiling with me when I was in the room. In regards to insomnia, a low dose of Seroquel at bedtime in the hospital does appear to be reasonable, especially given that she is been on it in the past and it has helped. Later I am informed that she is expressing suicidality. Will investigate f marcither, but given the complexity of her psychiatric history, and her expressed suicidality, will need to formally consult psychiatry because of the circumstances (6) Spina bifida: Paraplegia due to spina bifida (7) Morbid obesity: (8) DVT prophylaxis: anticoagulated (9) Discharge planning issues: Results & Data Vital Signs (Past 12 Hours) Vital Signs Temp Pulse Resp BP Pulse Ox 02/07/19 07:43 98.4 F 94 H 20 128/80 96 02/06/19 23:13 97.9 F 104 H 20 112/74 92 PG Care Time/CCT Total # of Minutes Spent Total Time Spent with Patient: Total time spent is greater than 50% in coordination of care (as documented) at patient's floor/unit and/or counseling patient: (1) Spina bifida Spinal region: unspecified Presence of hydrocephalus: with hydrocephalus Qualified Code(s): Q05.4 - Unspecified spina bifida with hydrocephalus
[2019-02-07] MEDS ORDERED: QUDEXY PO SCH ×2 (09:00)
[2019-02-07] MEDS: BENZTROPINE MESYLATE 1 MG TAB PO SCH ×2 (09:08→20:30)
[2019-02-07] MEDS: POTASSIUM CHLORIDE 20 MEQ TABCR PO SCH ×2 (09:08→20:32)
[2019-02-07] MEDS: APIXABAN 5 MG TABLET PO SCH ×2 (09:08→20:31)
[2019-02-07] MEDS: CETIRIZINE HCL 10 MG TABLET PO SCH ×2 (09:08→20:37)
[2019-02-07] MEDS: PANTOprazole 40 MG TAB PO SCH ×2 (09:08→20:36)
[2019-02-07] MEDS: BuPROPion SR 100 MG TABCR PO SCH (09:09)
[2019-02-07] MEDS: CYANOCOBALAMIN 500 MCG TABLET (VITAMIN B-12) PO SCH (09:09)
[2019-02-07] MEDS: FLUTICASONE/SALMETEROL (ADVAIR) 500/50 INH 14 PUFF INH SCH ×2 (09:09→20:28)
[2019-02-07] MEDS: TAMSULOSIN HCL 0.4 MG CAP PO SCH (09:09)
[2019-02-07] MEDS: HYOSCYAMINE SULFATE 0.125 MG TAB PO SCH ×3 (09:10→17:20)
[2019-02-07] MEDS: REXULTI 3 MG PO SCH (09:11)
[2019-02-07] MEDS: MEXILETINE HCL PO SCH ×3 (09:11→20:33)
[2019-02-07] MEDS: QUDEXY PO SCH (09:12)
[2019-02-07] MEDS: POLYETHYLENE (MIRALAX) 17 GM PACK PO SCH ×3 (09:12→20:34)
[2019-02-07] MEDS: PENTOSAN POLYSULFATE SODIUM 100 MG CAP PO SCH (09:13)
[2019-02-07] MEDS: TRIAMCINOLONE ACET 0.1% CR 80 GM TUBE TOP SCH ×3 (09:14→20:29)
[2019-02-07] MEDS: VENLAFAXINE HCL XR 150 MG CAPXR PO SCH (10:56)
[2019-02-07] MEDS: STERILE IR SCH ×4 (10:57→22:15)
[2019-02-07] MEDS: WATER IR SCH ×4 (10:57→22:15)
[2019-02-07] MEDS: AMPHOTERICIN B IR SCH ×4 (10:57→22:15)
[2019-02-07] MEDS: MAGNESIUM OXIDE 400 MG TAB PO SCH (10:59)
[2019-02-07] MEDS ORDERED: Nursing to Pharmacy Communication ONE (11:39)
[2019-02-07] MEDS ORDERED: AJOVY SC ONE (12:15)
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
[2019-02-07] MEDS: CEFEPIME 2,000 MG in SYRINGE 7.5 ML IV SCH (17:18)
[2019-02-07] MEDS: HEPARIN 100 UNIT/ML 5ML FLUSH FLUSH PRN (17:22)
--- NOTE | 2019-02-07 19:16 | Hospitalist Progress Note ---
Date of Service February 07, 2019 Assessment & Plan (1) Candidal urinary tract infection: Suprapubic catheter candidal UTI present on admission Antifungal/antibiotics per infectious disease and urology. No appearance of sepsis. Continue supportive care. (2) Open wound of perineum: Wound care ongoing (3) Sleep apnea: CPAP at bedtime (4) Hypothyroidism: Continue Synthroid (5) Anxiety: With suicidality, asked for assistance from psych, given the complexity of her psychiatric history. I do suspect it is more of a situational anxiety resulting in suicidal ideation, as she seems to immediately come down whenever her mother is present. That said obviously we need to keep her safe, and certainly should continue close observation, and keep awareness of where she is at with her suicidal thoughts. (6) Spina bifida: Paraplegia due to spina bifida (7) Morbid obesity: (8) DVT prophylaxis: anticoagulated (9) Discharge planning issues: Subjective Feeling okay now does not seem to be actively suicidal. Mom notes that meds may not be correctwe discussed. Discussed case with nursing. No other new issues. Tile Mechanic input appreciated. Review of Systems Review of Systems: All systems reviewed & are unremarkable except as noted in HPI & below Physical Exam Physical Exam: General she is awake and alert pleasant no distress. HEENTnormocephalic atraumatic mucous membranes moist. Breathing unlabored no accessory muscle use good effort. Skin shows no rashes no pallor or icterus. Neuro shows no new focal deficits. Results & Data Vital Signs (Past 12 Hours) Vital Signs Temp Pulse Resp BP Pulse Ox 02/07/19 07:43 98.4 F 94 H 20 128/80 96 02/06/19 23:13 97.9 F 104 H 20 112/74 92 PG Care Time/CCT Total # of Minutes Spent Total Time Spent with Patient: Total time spent is greater than 50% in community education coordinator rdination of care (as documented) at patient's floor/unit and/or counseling patient: (1) Spina bifida Spinal region: unspecified Presence of hydrocephalus: with hydrocephalus Qualified Code(s): Q05.4 - Unspecified spina bifida with hydrocephalus
[2019-02-07] MEDS: LACTOBACILLUS ACIDOPHILUS (FLORANEX) TAB PO SCH (20:31)
[2019-02-07] MEDS: MIRABEGRON ER 25 MG TAB PO SCH (20:34)
[2019-02-07] MEDS: TOPIRAMATE 100 MG PO SCH (20:35)
[2019-02-07] MEDS: PRENATAL VITAMIN 1 TAB PO SCH (20:36)
[2019-02-07] MEDS: TRAZODONE HCL 50 MG TAB PO SCH (21:57)
[2019-02-07] MEDS: QUETIAPINE FUMARATE 25 MG TABLET PO PRN (21:58)
[2019-02-08] MEDS: SILVER SULFADIAZINE 1% CR 50 GM JAR TOP SCH ×4 (00:29→21:39)
[2019-02-08] MEDS: TRAZODONE HCL 50 MG TAB PO SCH ×2 (00:54→20:35)
[2019-02-08] MEDS: HEPARIN 100 UNIT/ML 5ML FLUSH FLUSH PRN ×3 (04:02→15:18)
[2019-02-08] MEDS: CEFEPIME 2,000 MG in SYRINGE 7.5 ML IV SCH ×2 (04:02→15:18)
[2019-02-08] MEDS: LEVOTHYROXINE SODIUM 88 MCG TABLET PO SCH (06:01)
[2019-02-08] MEDS: HYOSCYAMINE SULFATE 0.125 MG TAB PO SCH ×3 (08:39→17:04)
[2019-02-08] MEDS: FLUTICASONE/SALMETEROL (ADVAIR) 500/50 INH 14 PUFF INH SCH ×2 (08:55→20:33)
[2019-02-08] MEDS: TRIAMCINOLONE ACET 0.1% CR 80 GM TUBE TOP SCH ×3 (08:56→20:49)
[2019-02-08] MEDS: BENZTROPINE MESYLATE 1 MG TAB PO SCH ×2 (08:56→20:38)
[2019-02-08] MEDS: APIXABAN 5 MG TABLET PO SCH ×2 (08:58→20:36)
[2019-02-08] MEDS: VENLAFAXINE HCL XR 150 MG CAPXR PO SCH (08:58)
[2019-02-08] MEDS: VENLAFAXINE HCL XR 37.5 MG CAPXR PO SCH (08:58)
[2019-02-08] MEDS: TAMSULOSIN HCL 0.4 MG CAP PO SCH (08:59)
[2019-02-08] MEDS: POTASSIUM CHLORIDE 20 MEQ TABCR PO SCH ×2 (08:59→20:41)
[2019-02-08] MEDS: MAGNESIUM OXIDE 400 MG TAB PO SCH (09:00)
[2019-02-08] MEDS: MEXILETINE HCL PO SCH ×3 (09:01→20:45)
[2019-02-08] MEDS: POLYETHYLENE (MIRALAX) 17 GM PACK PO SCH ×3 (09:02→20:45)
[2019-02-08] MEDS: QUDEXY PO SCH (09:03)
[2019-02-08] MEDS: REXULTI 3 MG PO SCH (09:06)
[2019-02-08] MEDS: PANTOprazole 40 MG TAB PO SCH ×2 (09:07→20:42)
[2019-02-08] MEDS: CYANOCOBALAMIN 500 MCG TABLET (VITAMIN B-12) PO SCH (09:07)
[2019-02-08] MEDS: CETIRIZINE HCL 10 MG TABLET PO SCH ×2 (09:08→20:39)
[2019-02-08] MEDS: BuPROPion SR 100 MG TABCR PO SCH (09:08)
[2019-02-08] MEDS: WATER IR SCH ×4 (09:29→20:45)
[2019-02-08] MEDS: STERILE IR SCH ×4 (09:29→20:45)
[2019-02-08] MEDS: AMPHOTERICIN B IR SCH ×4 (09:29→20:45)
[2019-02-08] MEDS: NYSTATIN POWDER 15GM BTL EXT PRN (10:29)
--- NOTE | 2019-02-08 13:20 | Infectious Disease Progress Nt ---
Date of Service February 08, 2019 Assessment & Plan (1) Candidal urinary tract infection: continue bladder irrigation x 5 days. will continue cefepime x 5 days as well Subjective continues with bladder irrigation and IV cefepime, tolerating well. afebrile. urine culture growing pseudomonas, sensitive to cefepime and c. glabrate. urology following. Results & Data Vital Signs (Past 12 Hours) Vital Signs Temp Pulse Resp BP Pulse Ox 02/08/19 07:00 36.7 C 93 H 18 113/74 91 Laboratory Results Microbiology 02/06/19 01:00 Urine,Straight Cath Urine Culture - Final Pseudomonas aeruginosa PG Care Time/CCT Total # of Minutes Spent Total Time Spent with Patient: Total time spent is greater than 50% in coordination of care (as documented) at patient's floor/unit and/or counseling patient:
--- NOTE | 2019-02-08 19:31 | Hospitalist Progress Note ---
Date of Service February 08, 2019 Assessment & Plan (1) Candidal urinary tract infection: Suprapubic catheter candidal UTI present on admission Antifungal/antibiotics per infectious disease and urology (anticipate 5 days of treatment). No appearance of sepsis. Continue supportive care. (2) Open wound of perineum: Wound care ongoing, appreciate wound care input (3) Sleep apnea: CPAP at bedtime (4) Hypothyroidism: Continue Synthroid (5) Anxiety: Somewhat erratic and labile mood, currently not suicidal, contracted for safety, continue meds as per psychiatry. Continue close observation. (6) Spina bifida: Paraplegia due to spina bifida (7) Morbid obesity: (8) DVT prophylaxis: anticoagulated (9) Discharge planning issues: Subjective Feeling better, mood is up and down, but no active suicidality. She notes that she would be open and honest if she was feeling that way. She notes that obviously her mood is much better whenever her mother is present, and she is much more stressed otherwise. She notes she actually slept fairly well last night. The bladder irrigation is uncomfortable but she is tolerating it. Review of Systems Review of Systems: All systems reviewed & are unremarkable except as noted in HPI & below Physical Exam Physical Exam: General she is awake and alert pleasant no distress. She is happy, bubbly, and laughing. HEENT normal cephalic atraumatic mucous members moist. Breathing unlabored no accessory muscle use good effort. Skin shows no rashes no pallor or icterus. Neuro shows no new focal deficits. Results & Data Vital Signs (Past 12 Hours) Vital Signs Temp Pulse Resp BP Pulse Ox 02/08/19 15:15 97.7 F 106 H 19 131/77 94 PG Care Time/CCT Total # of Minutes Spent Total Time Spent with Patient: Total time spent is greater than 50% in coordination of care (as documented) at patient's floor/unit and/or counseling patient: (1) Spina bifida Spinal region: unspecified Presence of hydrocephalus: with hydrocephalus Qualified Code(s): Q05.4 - Unspecified spina bifida with hydrocephalus
[2019-02-08] MEDS: LACTOBACILLUS ACIDOPHILUS (FLORANEX) TAB PO SCH (20:37)
[2019-02-08] MEDS: MIRABEGRON ER 25 MG TAB PO SCH (20:39)
[2019-02-08] MEDS: PRENATAL VITAMIN 1 TAB PO SCH (20:40)
[2019-02-08] MEDS: TOPIRAMATE 100 MG PO SCH (20:44)
[2019-02-08] MEDS: QUETIAPINE FUMARATE 25 MG TABLET PO PRN (21:39)
[2019-02-09] MEDS: CEFEPIME 2,000 MG in SYRINGE 7.5 ML IV SCH ×2 (04:48→17:02)
[2019-02-09] MEDS: SILVER SULFADIAZINE 1% CR 50 GM JAR TOP SCH ×3 (05:38→21:08)
[2019-02-09] MEDS: LEVOTHYROXINE SODIUM 88 MCG TABLET PO SCH (05:38)
[2019-02-09] MEDS: BuPROPion SR 100 MG TABCR PO SCH (08:38)
[2019-02-09] MEDS: CYANOCOBALAMIN 500 MCG TABLET (VITAMIN B-12) PO SCH (08:38)
[2019-02-09] MEDS: VENLAFAXINE HCL XR 150 MG CAPXR PO SCH (08:38)
[2019-02-09] MEDS: PANTOprazole 40 MG TAB PO SCH ×2 (08:38→21:06)
[2019-02-09] MEDS: FLUTICASONE/SALMETEROL (ADVAIR) 500/50 INH 14 PUFF INH SCH ×2 (08:39→20:57)
[2019-02-09] MEDS: CETIRIZINE HCL 10 MG TABLET PO SCH ×2 (08:39→21:07)
[2019-02-09] MEDS: POTASSIUM CHLORIDE 20 MEQ TABCR PO SCH ×2 (08:39→21:04)
[2019-02-09] MEDS: HYOSCYAMINE SULFATE 0.125 MG TAB PO SCH ×3 (08:40→17:03)
[2019-02-09] MEDS: TAMSULOSIN HCL 0.4 MG CAP PO SCH (08:40)
[2019-02-09] MEDS: APIXABAN 5 MG TABLET PO SCH ×2 (08:40→21:01)
[2019-02-09] MEDS: MAGNESIUM OXIDE 400 MG TAB PO SCH (08:40)
[2019-02-09] MEDS: BENZTROPINE MESYLATE 1 MG TAB PO SCH ×2 (08:40→20:59)
[2019-02-09] MEDS: MEXILETINE HCL PO SCH ×3 (08:41→21:04)
[2019-02-09] MEDS: VENLAFAXINE HCL XR 37.5 MG CAPXR PO SCH (08:41)
[2019-02-09] MEDS: REXULTI 3 MG PO SCH (08:42)
[2019-02-09] MEDS: TRIAMCINOLONE ACET 0.1% CR 80 GM TUBE TOP SCH ×3 (08:43→20:58)
[2019-02-09] MEDS: QUDEXY PO SCH (08:43)
[2019-02-09] MEDS: POLYETHYLENE (MIRALAX) 17 GM PACK PO SCH ×3 (08:44→21:05)
[2019-02-09] MEDS: STERILE IR SCH ×4 (09:29→21:02)
[2019-02-09] MEDS: WATER IR SCH ×4 (09:29→21:02)
[2019-02-09] MEDS: AMPHOTERICIN B IR SCH ×4 (09:29→21:02)
[2019-02-09] MEDS: ONDANSETRON HCL 8 MG in DEXTROSE 5% 50 ML IV PRN (13:27)
[2019-02-09] MEDS: HEPARIN 100 UNIT/ML 5ML FLUSH FLUSH PRN ×2 (14:27→17:20)
--- NOTE | 2019-02-09 15:46 | Family Medicine Progress Note ---
Date of Service February 09, 2019 Assessment & Plan (1) Candidal urinary tract infection: 33-year-old female was admitted on 05 February 2019 with concerns for diaper rash around her perineal area. Candidal urinary tract infection in the setting of Chronic indwelling suprapubic catheter due to paraplegia from spina bifida, neurogenic bladder. See related ID and urology recommendations. 04Sep UCx grew MDR Pseudomonas. Prior 29Aug UCx positive for Melida glabrata as well. 05Sep started cefepime IV. 04Sep also on amphotericin B as bladder irrigation. Planned 5-day course for both. On Flomax. Open wound on perineum: Wound care ongoing. Silver Silvadene and triamcinolone TID. Anxiety, suicidal ideation: See related psychiatry note. Increased dose of venlafaxine XR. Today (07Sep) patient noted increased auditory hallucinations reported as the voices of her parents arguing in the room (although they were physically at home). She already has a pending outpatient appointment with her own psychiatrist for Monday afternoon. - Will see if patient psych liaison can revisit with patient acutely. Ongoing medical issues: - Sleep apnea: Continue home CPAP. - Hypothyroidism: Continue home Synthroid. - Chronic anemia: Admit hemoglobin 12.5, down to 10.5. Monitoring. - Spina bifida, paraplegia, morbid obesity. - Asthma: Continue home Advair and as needed albuterol. - Insomnia: Continue home Vistaril - GERD: Continue home Protonix. - History of pulmonary embolism: On Eliquis at home. Code status: Full code. Diet: Regular. DVT prophy: Eliquis. PT/OT: Deferred. Disbo: Admit to [facility] with telemetry. Case management on board, although patient's mother is quite versed in outpatient care. Highly unlikely that her outpatient medications can be arranged over the weekend. Hopefully will be able to complete 5-day antibiotic course and discharge on Monday. (2) Neurogenic bladder: (3) Open wound of perineum: (4) Anxiety: (5) Suicidal ideation: (6) Sleep apnea: (7) Hypothyroidism: (8) Chronic anemia: (9) Spina bifida: (10) Paraplegia: (11) Morbid obesity: (12) Asthma: (13) Insomnia: (14) GERD (gastroesophageal reflux disease): (15) History of pulmonary embolus (PE): Supervising Physician Co-Signing Physician Notes Resident Physician Supervision Note: I independently interviewed and examined the patient and verified the canales history and physical, reviewed labs and image studies, discussed the case with the resident Dr. Ortega and agree with the findings and care plan. Subjective Found patient resting very comfortably earlier this morning. Overall she said that she felt quite well and denied any acute concerns. Her only request was that her Zofran be transitioned from p.o. to IV as she states that it seems more efficacious this way. Spoke with patient and her mother at bedside later in the morning. Her mother relates that she is quite versed in the patient's outpatient care. We discussed that it would be very difficult for her to get access to her current IV antibiotics over the weekend. Overall, the goal is to complete her IV antibiotics while an inpatient and discharge early on Monday morning. Mother notes that the patient has a pending psychiatry appointment for Monday afternoon as well as multiple other subspecialty appointments later in the week. Review of Systems Review of Systems: ROS per HPI. Physical Exam Physical Exam: General Appearance: Awake, alert & oriented, comfortable in general, NAD. Seems rather upbeat. CV: +S1S2 RRR, no murmur. Right upper chest Mediport accessed. Pulm: Clear to auscultation throughout. Abdomen: +BS, soft, non-tender, non-distended. BMI 77. Extremities: Bilateral leg paraplegic. Neuro: No gross neuro deficits. Psych: Seems rather upbeat, perhaps a bit excessively so. She reports episodes of auditory hallucinations of her parents arguing as if they were in the room. The patient acutely addressed this by calling her mother on the phone and talki ng things through with her. Results & Data Vital Signs (Past 12 Hours) Vital Signs Temp Pulse Resp BP Pulse Ox 02/09/19 15:12 36.5 C 108 H 18 114/58 L 99 02/09/19 08:00 36.7 C 101 H 16 116/74 94 Medications Administered Current Inpatient Medications Acetaminophen (Tylenol) 650 mg PO Q4H PRN PRN Reason: Pain or Fever Stop: 03/07/19 17:46 Al Hydrox/Mg Hydrox/Simethicone (Maalox) 15 ml PO Q4H PRN PRN Reason: Dyspepsia Stop: 03/07/19 17:46 Albuterol (Ventolin Hfa) 2 puffs INH Q4H PRN PRN Reason: SOB/WHEEZING Stop: 03/07/19 18:59 Apixaban (Eliquis) 5 mg PO BID [facility] Stop: 03/07/19 20:59 Last Admin: 02/09/19 08:40 Dose: 5 mg Documented by: Benztropine Mesylate (Cogentin) 1 mg PO BID [facility] Stop: 03/07/19 20:59 Last Admin: 02/09/19 08:40 Dose: 1 mg Documented by: Bupropion HCl (Wellbutrin-Sr) 100 mg PO DAILY [facility] Stop: 03/08/19 08:59 Last Admin: 02/09/19 08:38 Dose: 100 mg Documented by: Cetirizine HCl (Zyrtec) 10 mg PO BID [facility] Stop: 03/07/19 20:59 Last Admin: 02/09/19 08:39 Dose: 10 mg Documented by: Cyanocobalamin (Vitamin B-12) 500 mcg PO QAM [facility] Stop: 03/08/19 08:59 Last Admin: 02/09/19 08:38 Dose: 500 mcg Documented by: Haloperidol (Haldol) 2 mg PO Q12 PRN PRN Reason: PRN Stop: 03/07/19 17:46 Heparin Sodium (Porcine) (Heparin Sod 100 Unit/Ml Flush) 5 ml FLUSH PRN PRN PRN Reason: Flush Stop: 03/07/19 19:44 Last Admin: 02/09/19 14:27 Dose: 5 ml Documented by: Hydroxyzine HCl (Vistaril) 25 mg PO QID [facility] Stop: 03/07/19 20:59 Last Admin: 02/09/19 12:55 Dose: 25 mg Documented by: Hyoscyamine (Levsin) 0.125 mg PO TIDM [facility] Stop: 03/08/19 07:59 Last Admin: 02/09/19 12:55 Dose: 0.125 mg Documented by: Amphotericin B 50 mg/ Sterile (Water) 1,000 mls @ 41.667 mls/hr IR Q24H [facility] Stop: 02/15/19 19:59 Last Admin: 02/07/19 13:15 Dose: Not Given Documented by: Amphotericin B 12.5 mg/ (Sterile Water) 250 mls @ 0 mls/hr IR QID [facility] Stop: 02/15/19 20:59 Last Admin: 02/09/19 12:54 Dose: 1 mls/hr Documented by: Cefepime HCl 2,000 mg/ Syringe 20 mls @ 5 mls/min IV Q12H [facility]; Protocol Stop: 02/17/19 15:59 Last Admin: 02/09/19 04:48 Dose: 5 mls/min Documented by: Ondansetron HCl 8 mg/ Dextrose 54 mls @ 200 mls/hr IV Q8H PRN PRN Reason: Nausea And Vomiting Stop: 03/11/19 09:53 Last Infusion: 02/09/19 14:36 Dose: Infused Documented by: Ketoconazole (Nizoral 2%) 1 appln EXT DAILY PRN PRN Reason: Affected Skin Folds Stop: 02/15/19 20:23 Last Admin: 02/06/19 23:02 Dose: 1 appln Documented by: Lactobacillus Acidophilus (Floranex) 4 tab PO HS [facility] Stop: 03/07/19 20:59 Last Admin: 02/08/19 20:37 Dose: 4 tab Documented by: Levalbuterol HCl (Xopenex 0.63 Mg/3 Ml Neb) 0.63 mg INH TID PRN PRN Reason: sob Stop: 03/07/19 17:46 Levothyroxine Sodium (Synthroid) 88 mcg PO DAILYBB [facility] Stop: 03/08/19 06:29 Last Admin: 02/09/19 05:38 Dose: 88 mcg Documented by: Magnesium Oxide (Mag-Ox) 400 mg PO DAILY [facility] Stop: 03/08/19 08:59 Last Admin: 02/09/19 08:40 Dose: 400 mg Documented by: Metoclopramide HCl (Reglan) 10 mg PO BID PRN PRN Reason: acute headaches Stop: 03/07/19 17:46 Mexiletine HCl (Mexiletine Hcl) 2 ea PO TID [facility] Stop: 03/07/19 20:59 Last Admin: 02/09/19 12:57 Dose: 2 ea Documented by: Mirabegron (Myrbetriq Er) 25 mg PO PM [facility] Stop: 03/07/19 20:59 Last Admin: 02/08/19 20:39 Dose: 25 mg Documented by: Miscellaneous (Non-Formulary Medication) 1 ea PO QPM [facility] Stop: 03/08/19 20:59 Last Admin: 02/08/19 20:44 Dose: 1 ea Documented by: Miscellaneous (Non-Formulary Medication) 2 ea PO QAM [facility] Stop: 03/09/19 08:59 Last Admin: 02/09/19 08:43 Dose: 2 ea Documented by: Multi-Ingredient Cream (Hydrocerin) 1 appln EXT DAILY PRN PRN Reason: DRY SKIN Stop: 03/07/19 20:13 Last Admin: 02/08/19 09:28 Dose: 1 appln Documented by: Carlos Eduardo 3 Mg: Non- Formulary Patient's Own Med 1 ea PO DAILY [facility] Stop: 03/08/19 08:59 Last Admin: 02/09/19 08:42 Dose: 2 tab Documented by: Nystatin (Mycostatin) 1 appln EXT DAILY PRN PRN Reason: Affected Skin Folds Stop: 03/07/19 20:23 Last Admin: 02/08/19 10:29 Dose: 1 appln Documented by: Oxycodone HCl (Roxicodone Immediate Rel) 5 mg PO Q6H PRN PRN Reason: Pain Stop: 02/19/19 18:46 Last Admin: 02/06/19 16:29 Dose: 5 mg Documented by: Pantoprazole Sodium (Protonix) 40 mg PO BID [facility] Stop: 03/07/19 20:59 Last Admin: 02/09/19 08:38 Dose: 40 mg Documented by: Polyethylene Glycol (Miralax Powder Packet) 17 gm PO TID [facility] Stop: 03/07/19 20:59 Last Admin: 02/09/19 12:56 Dose: Not Given Documented by: Polyethylene Glycol (Miralax Powder Packet) 17 gm PO DAILY PRN PRN Reason: Constipation Stop: 03/07/19 17:46 Potassium Chloride (Klor-Con M20) 20 meq PO BID [facility] Stop: 03/07/19 20:59 Last Admin: 02/09/19 08:39 Dose: 20 meq Documented by: Prenat Multivit/Bystrom/Iron/Folic Ac ( Vitamin) 1 tab PO QPM [facility] Stop: 03/07/19 20:59 Last Admin: 02/08/19 20:40 Dose: 1 tab Documented by: Promethazine HCl (Phenergan) 12.5 mg PO Q6H PRN PRN Reason: allergy symptoms Stop: 03/07/19 17:46 Quetiapine Fumarate (Seroquel) 25 mg PO HS PRN PRN Reason: sleep Stop: 03/08/19 20:59 Last Admin: 02/08/19 21:39 Dose: 25 mg Documented by: Fluticasone/Salmeterol (Advair Diskus 500/50) 1 puffs INH BID [facility] Stop: 03/07/19 20:59 Last Admin: 02/09/19 08:39 Dose: 1 puffs Documented by: Silver Sulfadiazine (Silvadene 1% 50gm) 1 appln TOP Q8 [facility] Stop: 03/07/19 21:59 Last Admin: 02/09/19 12:57 Dose: Not Given Documented by: Tamsulosin HCl (Flomax) 0.4 mg PO DAILY [facility] Stop: 03/08/19 08:59 Last Admin: 02/09/19 08:40 Dose: 0.4 mg Documented by: Tramadol HCl (Ultram) 50 mg PO TID PRN PRN Reason: headache Stop: 03/07/19 17:46 Last Admin: 02/05/19 21:33 Dose: 50 mg Documented by: Trazodone HCl (Desyrel) 150 mg PO HS [facility] Stop: 03/07/19 20:59 Last Admin: 02/08/19 20:35 Dose: 150 mg Documented by: Triamcinolone Acetonide (Aristocort 0.1%) 1 appln TOP TID [facility] Stop: 03/07/19 20:59 Last Admin: 02/09/19 12:58 Dose: 1 appln Documented by: Venlafaxine HCl (Effexor Extended Release) 150 mg PO QAM [facility] Stop: 03/10/19 08:59 Last Admin: 02/09/19 08:38 Dose: 150 mg Documented by: Venlafaxine HCl (Effexor Extended Release) 37.5 mg PO QAM [facility] Stop: 03/10/19 08:59 Last Admin: 02/09/19 08:41 Dose: 37.5 mg Documented by: PG Care Time/CCT Total # of Minutes Spent Total Time Spent with Patient: Total time spent is greater than 50% in coordination of care (as documented) at patient's floor/unit and/or counseling patient: Resident Activity Tracking Resident Involvement: Resident Care Provided Care Provided: Adult Hospital Medicine (1) Spina bifida Presence of hydrocephalus: with hydrocephalus Spinal region: unspecified Qualified Code(s): Q05.4 - Unspecified spina bifida with hydrocephalus
[2019-02-09] MEDS: TRAZODONE HCL 50 MG TAB PO SCH (21:01)
[2019-02-09] MEDS: LACTOBACILLUS ACIDOPHILUS (FLORANEX) TAB PO SCH (21:02)
[2019-02-09] MEDS: TOPIRAMATE 100 MG PO SCH (21:05)
[2019-02-09] MEDS: MIRABEGRON ER 25 MG TAB PO SCH (21:05)
[2019-02-09] MEDS: PRENATAL VITAMIN 1 TAB PO SCH (21:06)
[2019-02-10] MEDS: CEFEPIME 2,000 MG in SYRINGE 7.5 ML IV SCH ×2 (04:37→16:04)
[2019-02-10] MEDS: SILVER SULFADIAZINE 1% CR 50 GM JAR TOP SCH ×3 (05:08→21:23)
[2019-02-10] MEDS: ONDANSETRON HCL 8 MG in DEXTROSE 5% 50 ML IV PRN (05:14)
[2019-02-10] MEDS: LEVOTHYROXINE SODIUM 88 MCG TABLET PO SCH (05:36)
[2019-02-10] MEDS: HEPARIN 100 UNIT/ML 5ML FLUSH FLUSH PRN ×3 (05:36→21:23)
[2019-02-10 06:09] LABS: Basophils # (auto) 0.03 K/uL (0-0.2); Basophils % (auto) 0.5 %; Eosinophils # (auto) 0.46 K/uL (0-0.5); Eosinophils % (auto) 8.3 %; Hematocrit (blood only) 33.9 % (37-47); Hemoglobin 10.5 g/dL (12.0-16.0); Immature Granulocytes # (auto) 0.01 K/uL (0.00-0.02); Immature Granulocytes % (auto) 0.2 %; Lymphocytes # (auto) 2.05 K/uL (1.2-3.4); Mean Corpuscular Volume 93.6 fL (80-100); Mean Platelet Volume 9.8 fL (7.4-10.4); Monocytes # (auto) 0.59 K/uL (0.11-0.59); Monocytes % (auto) 10.6 %; Neutrophils % (auto) 43.4 %; Platelet Count 218 K/uL (130-400); RDW Coefficient of Variation 16.1 % (11.5-14.5); Red Blood Count 3.62 M/uL (4.2-5.4); White Blood Count 5.54 K/uL (4.8-10.8)
[2019-02-10 06:44] LABS: Calcium 8.7 mg/dl (8.5-10.1); Creatinine Clr Calc Pharmacy 86.1 ml/min; Est GFR (African American) 107.3; Est GFR (Non-African American) 92.6; Potassium 3.6 mmol/L (3.5-5.1)
[2019-02-10] MEDS: TAMSULOSIN HCL 0.4 MG CAP PO SCH (08:15)
[2019-02-10] MEDS: CYANOCOBALAMIN 500 MCG TABLET (VITAMIN B-12) PO SCH (08:15)
[2019-02-10] MEDS: BuPROPion SR 100 MG TABCR PO SCH (08:15)
[2019-02-10] MEDS: PANTOprazole 40 MG TAB PO SCH ×2 (08:15→21:20)
[2019-02-10] MEDS: FLUTICASONE/SALMETEROL (ADVAIR) 500/50 INH 14 PUFF INH SCH ×2 (08:15→21:15)
[2019-02-10] MEDS: POTASSIUM CHLORIDE 20 MEQ TABCR PO SCH ×2 (08:16→21:19)
[2019-02-10] MEDS: CETIRIZINE HCL 10 MG TABLET PO SCH ×2 (08:16→21:21)
[2019-02-10] MEDS: VENLAFAXINE HCL XR 150 MG CAPXR PO SCH (08:16)
[2019-02-10] MEDS: VENLAFAXINE HCL XR 37.5 MG CAPXR PO SCH (08:16)
[2019-02-10] MEDS: MAGNESIUM OXIDE 400 MG TAB PO SCH (08:16)
[2019-02-10] MEDS: HYOSCYAMINE SULFATE 0.125 MG TAB PO SCH ×3 (08:16→17:10)
[2019-02-10] MEDS: TRIAMCINOLONE ACET 0.1% CR 80 GM TUBE TOP SCH ×3 (08:17→21:15)
[2019-02-10] MEDS: BENZTROPINE MESYLATE 1 MG TAB PO SCH ×2 (08:17→21:16)
[2019-02-10] MEDS: APIXABAN 5 MG TABLET PO SCH ×2 (08:17→21:24)
[2019-02-10] MEDS: QUDEXY PO SCH (08:18)
[2019-02-10] MEDS: MEXILETINE HCL PO SCH ×3 (08:18→21:19)
[2019-02-10] MEDS: POLYETHYLENE (MIRALAX) 17 GM PACK PO SCH ×3 (08:18→21:23)
[2019-02-10] MEDS: REXULTI 3 MG PO SCH (08:19)
[2019-02-10] MEDS: WATER IR SCH ×4 (09:44→21:18)
[2019-02-10] MEDS: STERILE IR SCH ×4 (09:44→21:18)
[2019-02-10] MEDS: AMPHOTERICIN B IR SCH ×4 (09:44→21:18)
--- NOTE | 2019-02-10 11:39 | Family Medicine Progress Note ---
Date of Service February 10, 2019 Assessment & Plan (1) Candidal urinary tract infection: 33-year-old female was admitted on 05 February 2019 with concerns for diaper rash around her perineal area. Candidal urinary tract infection, neurogenic bladder: Has an indwelling suprapubic catheter due to paraplegia from spina bifida. See related ID and urology recommendations. 04Sep UCx grew MDR Pseudomonas. Prior 29Aug UCx positive for Melida glabrata as well. 05Sep started cefepime IV. 04Sep also on amphotericin B as bladder irrigation. Planned 5-day course for both. On Flomax. Open wound on perineum: Wound care ongoing. Silver Silvadene and triamcinolone TID. Anxiety, suicidal ideation: See related psychiatry note. Increased dose of venlafaxine XR. Some episodes of auditory hallucinations as inpatient. She is pending an outpatient appointment with her own psychiatrist for Monday (Se) afternoon. Ongoing medical issues: - Sleep apnea: Continue home CPAP. - Hypothyroidism: Continue home Synthroid. - Chronic anemia: Admit hemoglobin 12.5, now stable around 10s. Monitoring. - Spina bifida, paraplegia, morbid obesity. - Asthma: Continue home Advair and as needed albuterol. - Insomnia: Continue home Vistaril - GERD: Continue home Protonix. - History of pulmonary embolism: On Eliquis at home. Code status: Full code. Diet: Regular. DVT prophy: Eliquis. PT/OT: Deferred. Disbo: Admit to [facility] with telemetry. Case management on board, although patient's mother is quite versed in outpatient care. Highly unlikely that her outpatient medications can be arranged over the weekend. Hopefully will be able to complete 5-day antibiotic course and discharge on Monday. (2) Neurogenic bladder: (3) Open wound of perineum: (4) Anxiety: (5) Suicidal ideation: (6) Sleep apnea: (7) Hypothyroidism: (8) Chronic anemia: (9) Spina bifida: (10) Paraplegia: (11) Morbid obesity: (12) Asthma: (13) Insomnia: (14) GERD (gastroesophageal reflux disease): (15) History of pulmonary embolus (PE): Supervising Physician Co-Signing Physician Notes Resident Physician Supervision Note: I independently interviewed and examined the patient and verified the canales history and physical, reviewed labs and image studies, discussed the case with the resident Dr. Ortega and agree with the findings and care plan. Subjective Found patient resting comfortably once again this morning. She said that her night was very bad because she had multiple panic attacks. She says that she was told by her nurse that psychiatry recommends that she see her own psychiatry physician as scheduled for tomorrow for ongoing management of the symptoms. At present, she says that she feels okay and relatively upbeat about the current plan for antibiotics and hopefully discharge home next day or so. Patient denies any physical complaints or other acute concerns. Review of Systems Review of Systems: ROS per HPI. Physical Exam Physical Exam: General Appearance: Awake, alert & oriented, comfortable in general, NAD. CV: +S1S2 RRR, no murmur. Right upper chest Mediport accessed. Pulm: Clear to auscultation throughout. Abdomen: +BS, soft, non-tender, non-distended. BMI 77. Suprapubic catheter in place. Extremities: Bilateral leg paraplegic. Neuro: No gross neuro deficits. Psych: A bit emotionally labile, at times but excessively upbeat but then at other times within a second or 2 discussion will seem more sad on recalling her overnight self-described panic attacks. At present denies any auditory hallucinations. Results & Data Vital Signs (Past 12 Hours) Vital Signs Temp Pulse Resp BP Pulse Ox 02/10/19 08:11 36.6 C 94 H 16 108/69 95 02/09/19 23:44 36.6 C 97 H 15 109/71 96 Laboratory Results 02/10/19 02/10/19 Range/Units 05:50 05:50 WBC 5.54 (4.8-10.8) K/uL RBC 3.62 L (4.2-5.4) M/uL Hgb 10.5 L (12.0-16.0) g/dL Hct 33.9 L (37-47) % MCV 93.6 (80-100) fL MCH 29.0 (25-34) pg MCHC 31.0 L (32-36) g/dL RDW Std Deviation 55.0 H (36.4-46.3) fL RDW Coeff of Neda 16.1 H (11.5-14.5) % Plt Count 218 (130-400) K/uL MPV 9.8 (7.4-10.4) fL Immature Gran % (Auto) 0.2 % Neut % (Auto) 43.4 % Lymph % (Auto) 37.0 % [place]ois % (Auto) 10.6 % Eos % (Auto) 8.3 % Baso % (Auto) 0.5 % Immature Gran # (Auto) 0.01 (0.00-0.02) K/uL Neut # (Auto) 2.40 (1.4-6.5) K/uL Lymph # (Auto) 2.05 (1.2-3.4) K/uL [place] # (Auto) 0.59 (0.11-0.59) K/uL Eos # (Auto) 0.46 (0-0.5) K/uL Baso # (Auto) 0.03 (0-0.2) K/uL Sodium 141 (136-145) mmol/L Potassium 3.6 (3.5-5.1) mmol/L Chloride 110 H (98-107) mmol/L Carbon Dioxide 24 (21-32) mmol/L Anion Gap 7.0 (3-11) BUN 9 (7-18) mg/dl Creatinine 0.84 (0.6-1.2) mg/dl Est Cr Clr Drug Dosing 86.1 ml/min Est GFR ( Amer) 107.3 Est GFR (Non-Af Amer) 92.6 BUN/Creatinine Ratio 11.0 (10-20) Glucose 169 H (70-99) mg/dl Calcium 8.7 (8.5-10.1) mg/dl Medications Administered Current Inpatient Medications Acetaminophen (Tylenol) 650 mg PO Q4H PRN PRN Reason: Pain or Fever Stop: 03/07/19 17:46 Al Hydrox/Mg Hydrox/Simethicone (Maalox) 15 ml PO Q4H PRN PRN Reason: Dyspepsia Stop: 03/07/19 17:46 Albuterol (Ventolin Hfa) 2 puffs INH Q4H PRN PRN Reason: SOB/WHEEZING Stop: 03/07/19 18:59 Apixaban (Eliquis) 5 mg PO BID [facility]INO Stop: 03/07/19 20:59 Last Admin: 02/10/19 08:17 Dose: 5 mg Documented by: Benztropine Mesylate (Cogentin) 1 mg PO BID CATALINO Stop: 03/07/19 20:59 Last Admin: 02/10/19 08:17 Dose: 1 mg Documented by: Bupropion HCl (Wellbutrin-Sr) 100 mg PO DAILY CAT[place]INO Stop: 03/08/19 08:59 Last Admin: 02/10/19 08:15 Dose: 100 mg Documented by: Cetirizine HCl (Zyrtec) 10 mg PO BID [place] Stop: 03/07/19 20:59 Last Admin: 02/10/19 08:16 Dose: 10 mg Documented by: Cyanocobalamin (Vitamin B-12) 500 mcg PO QAM [facility] Stop: 03/08/19 08:59 Last Admin: 02/10/19 08:15 Dose: 500 mcg Documented by: Haloperidol (Haldol) 2 mg PO Q12 PRN PRN Reason: PRN Stop: 03/07/19 17:46 Last Admin: 02/10/19 09:48 Dose: 2 mg Documented by: Heparin Sodium (Porcine) (Heparin Sod 100 Unit/Ml Flush) 5 ml FLUSH PRN PRN PRN Reason: Flush Stop: 03/07/19 19:44 Last Admin: 02/10/19 05:36 Dose: 5 ml Documented by: Hydroxyzine HCl (Vistaril) 25 mg PO QID [place] Stop: 03/07/19 20:59 Last Admin: 02/10/19 08:15 Dose: 25 mg Documented by: Hyoscyamine (Levsin) 0.125 mg PO TIDM [facility] Stop: 03/08/19 07:59 Last Admin: 02/10/19 08:16 Dose: 0.125 mg Documented by: Amphotericin B 50 mg/ Sterile (Water) 1,000 mls @ 41.667 mls/hr IR Q24H [facility] Stop: 02/15/19 19:59 Last Admin: 02/07/19 13:15 Dose: Not Given Documented by: Amphotericin B 12.5 mg/ (Sterile Water) 250 mls @ 0 mls/hr IR QID [facility] Stop: 02/15/19 20:59 Last Admin: 02/10/19 09:44 Dose: 1 mls/hr Documented by: Cefepime HCl 2,000 mg/ Syringe 20 mls @ 5 mls/min IV Q12H CATALINO; Protocol Stop: 02/17/19 15:59 Last Admin: 02/10/19 04:37 Dose: 5 mls/min Documented by: Ondansetron HCl 8 mg/ Dextrose 54 mls @ 200 mls/hr IV Q8H PRN PRN Reason: Nausea And Vomiting Stop: 03/11/19 09:53 Last Infusion: 02/10/19 05:31 Dose: Infused Documented by: Ketoconazole (Nizoral 2%) 1 appln EXT DAILY PRN PRN Reason: Affected Skin Folds Stop: 02/15/19 20:23 Last Admin: 02/06/19 23:02 Dose: 1 appln Documented by: Lactobacillus Acidophilus (Floranex) 4 tab PO HS [facility] Stop: 03/07/19 20:59 Last Admin: 02/09/19 21:02 Dose: 4 tab Documented by: Levalbuterol HCl (Xopenex 0.63 Mg/3 Ml Neb) 0.63 mg INH TID PRN PRN Reason: sob Stop: 03/07/19 17:46 Levothyroxine Sodium (Synthroid) 88 mcg PO DAILYBB [facility] Stop: 03/08/19 06:29 Last Admin: 02/10/19 05:36 Dose: 88 mcg Documented by: Magnesium Oxide (Mag-Ox) 400 mg PO DAILY [facility] Stop: 03/08/19 08:59 Last Admin: 02/10/19 08:16 Dose: 400 mg Documented by: Metoclopramide HCl (Reglan) 10 mg PO BID PRN PRN Reason: acute headaches Stop: 03/07/19 17:46 Mexiletine HCl (Mexiletine Hcl) 2 ea PO TID [facility] Stop: 03/07/19 20:59 Last Admin: 02/10/19 08:18 Dose: 2 ea Documented by: Mirabegron (Myrbetriq Er) 25 mg PO PM [facility] Stop: 03/07/19 20:59 Last Admin: 02/09/19 21:05 Dose: 25 mg Documented by: Miscellaneous (Non-Formulary Medication) 1 ea PO QPM [facility] Stop: 03/08/19 20:59 Last Admin: 02/09/19 21:05 Dose: 1 ea Documented by: Miscellaneous (Non-Formulary Medication) 2 ea PO QAM [facility] Stop: 03/09/19 08:59 Last Admin: 02/10/19 08:18 Dose: 2 ea Documented by: Multi-Ingredient Cream (Hydrocerin) 1 appln EXT DAILY PRN PRN Reason: DRY SKIN Stop: 03/07/19 20:13 Last Admin: 02/08/19 09:28 Dose: 1 appln Documented by: Carlos Eduardo 3 Mg: Non- Formulary Patient's Own Med 1 ea PO DAILY [facility] Stop: 03/08/19 08:59 Last Admin: 02/10/19 08:19 Dose: 2 tab Documented by: Nystatin (Mycostatin) 1 appln EXT DAILY PRN PRN Reason: Affected Skin Folds Stop: 03/07/19 20:23 Last Admin: 02/08/19 10:29 Dose: 1 appln Documented by: Oxycodone HCl (Roxicodone Immediate Rel) 5 mg PO Q6H PRN PRN Reason: Pain Stop: 02/19/19 18:46 Last Admin: 02/06/19 16:29 Dose: 5 mg Documented by: Pantoprazole Sodium (Protonix) 40 mg PO BID [facility] Stop: 03/07/19 20:59 Last Admin: 02/10/19 08:15 Dose: 40 mg Documented by: Polyethylene Glycol (Miralax Powder Packet) 17 gm PO TID [facility] Stop: 03/07/19 20:59 Last Admin: 02/10/19 08:18 Dose: Not Given Documented by: Polyethylene Glycol (Miralax Powder Packet) 17 gm PO DAILY PRN PRN Reason: Constipation Stop: 03/07/19 17:46 Potassium Chloride (Klor-Con M20) 20 meq PO BID [facility] Stop: 03/07/19 20:59 Last Admin: 02/10/19 08:16 Dose: 20 meq Documented by: Prenat Multivit/[place]/Iron/Folic Ac ( Vitamin) 1 tab PO QPM [facility] Stop: 03/07/19 20:59 Last Admin: 02/09/19 21:06 Dose: 1 tab Documented by: Promethazine HCl (Phenergan) 12.5 mg PO Q6H PRN PRN Reason: allergy symptoms Stop: 03/07/19 17:46 Quetiapine Fumarate (Seroquel) 25 mg PO HS PRN PRN Reason: sleep Stop: 03/08/19 20:59 Last Admin: 02/08/19 21:39 Dose: 25 mg Documented by: Fluticasone/Salmeterol (Advair Diskus 500/50) 1 puffs INH BID [place] Stop: 03/07/19 20:59 Last Admin: 02/10/19 08:15 Dose: 1 puffs Documented by: Silver Sulfadiazine (Silvadene 1% 50gm) 1 appln TOP Q8 [facility] Stop: 03/07/19 21:59 Last Admin: 02/10/19 05:08 Dose: Not Given Documented by: Tamsulosin HCl (Flomax) 0.4 mg PO DAILY [facility] Stop: 03/08/19 08:59 Last Admin: 02/10/19 08:15 Dose: 0.4 mg Documented by: Tramadol HCl (Ultram) 50 mg PO TID PRN PRN Reason: headache Stop: 03/07/19 17:46 Last Admin: 02/05/19 21:33 Dose: 50 mg Documented by: Trazodone HCl (Desyrel) 150 mg PO HS [facility] Stop: 03/07/19 20:59 Last Admin: 02/09/19 21:01 Dose: 150 mg Documented by: Triamcinolone Acetonide (Aristocort 0.1%) 1 appln TOP TID [facility] Stop: 03/07/19 20:59 Last Admin: 02/10/19 08:17 Dose: 1 appln Documented by: Venlafaxine HCl (Effexor Extended Release) 150 mg PO QAM [facility] Stop: 03/10/19 08:59 Last Admin: 02/10/19 08:16 Dose: 150 mg Documented by: Venlafaxine HCl (Effexor Extended Release) 37.5 mg PO QAM [facility] Stop: 03/10/19 08:59 Last Admin: 02/10/19 08:16 Dose: 37.5 mg Documented by: PG Care Time/CCT Total # of Minutes Spent Total Time Spent with Patient: Total time spent is greater than 50% in coordination of care (as documented) at patient's floor/unit and/or counseling patient: Resident Activity Tracking Resident Involvement: Resident Care Provided Care Provided: Adult Hospital Medicine (1) Spina bifida Presence of hydrocephalus: with hydrocephalus Spinal region: unspecified Qualified Code(s): Q05.4 - Unspecified spina bifida with hydrocephalus
[2019-02-10] MEDS ORDERED: DiphenhydrAMINE HCL 50 MG/ML VIAL IV PRN (16:51)
[2019-02-10] MEDS ORDERED: DiphenhydrAMINE HCL 50 MG/ML VIAL IV ONE (20:14)
[2019-02-10] MEDS: TRAZODONE HCL 50 MG TAB PO SCH (21:16)
[2019-02-10] MEDS: LACTOBACILLUS ACIDOPHILUS (FLORANEX) TAB PO SCH (21:17)
[2019-02-10] MEDS: TOPIRAMATE 100 MG PO SCH (21:19)
[2019-02-10] MEDS: PRENATAL VITAMIN 1 TAB PO SCH (21:20)
[2019-02-10] MEDS: MIRABEGRON ER 25 MG TAB PO SCH (21:20)
[2019-02-10] MEDS: QUETIAPINE FUMARATE 25 MG TABLET PO PRN (21:24)
[2019-02-11] MEDS ORDERED: EUCERIN CR 120 GM JAR EXT PRN (00:11)
[2019-02-11] MEDS: SILVER SULFADIAZINE 1% CR 50 GM JAR TOP SCH ×2 (05:29→14:14)
[2019-02-11] MEDS: CEFEPIME 2,000 MG in SYRINGE 7.5 ML IV SCH (05:29)
[2019-02-11] MEDS: HEPARIN 100 UNIT/ML 5ML FLUSH FLUSH PRN ×2 (05:29→12:11)
[2019-02-11] MEDS: LEVOTHYROXINE SODIUM 88 MCG TABLET PO SCH (05:31)
[2019-02-11] MEDS: PANTOprazole 40 MG TAB PO SCH (08:23)
[2019-02-11] MEDS: APIXABAN 5 MG TABLET PO SCH (08:24)
[2019-02-11] MEDS: MAGNESIUM OXIDE 400 MG TAB PO SCH (08:24)
[2019-02-11] MEDS: HYOSCYAMINE SULFATE 0.125 MG TAB PO SCH ×2 (08:24→12:09)
[2019-02-11] MEDS: VENLAFAXINE HCL XR 150 MG CAPXR PO SCH (08:24)
[2019-02-11] MEDS: CETIRIZINE HCL 10 MG TABLET PO SCH (08:24)
[2019-02-11] MEDS: TAMSULOSIN HCL 0.4 MG CAP PO SCH (08:25)
[2019-02-11] MEDS: BuPROPion SR 100 MG TABCR PO SCH (08:25)
[2019-02-11] MEDS: CYANOCOBALAMIN 500 MCG TABLET (VITAMIN B-12) PO SCH (08:25)
[2019-02-11] MEDS: VENLAFAXINE HCL XR 37.5 MG CAPXR PO SCH (08:25)
[2019-02-11] MEDS: TRIAMCINOLONE ACET 0.1% CR 80 GM TUBE TOP SCH ×2 (08:26→14:13)
[2019-02-11] MEDS: FLUTICASONE/SALMETEROL (ADVAIR) 500/50 INH 14 PUFF INH SCH (08:26)
[2019-02-11] MEDS: BENZTROPINE MESYLATE 1 MG TAB PO SCH (08:26)
[2019-02-11] MEDS: POTASSIUM CHLORIDE 20 MEQ TABCR PO SCH (08:27)
[2019-02-11] MEDS: POLYETHYLENE (MIRALAX) 17 GM PACK PO SCH ×2 (08:27→14:14)
[2019-02-11] MEDS: MEXILETINE HCL PO SCH ×2 (08:27→14:13)
[2019-02-11] MEDS: QUDEXY PO SCH (08:27)
[2019-02-11] MEDS: REXULTI 3 MG PO SCH (08:28)
--- NOTE | 2019-02-11 09:56 | Discharge Summary ---
Date of Service February 11, 2019 Admission HPI Per Admitting Provider Patient is a 33-year-old single female with a past medical history of hydrocephalus, spina bifida, neurogenic bladder, chronic suprapubic catheter, GERD, hypothyroidism, sleep apnea, S/P [employer] shunt, bilateral BKA, history of pulmonary embolism on apixaban, and a psychiatric history of anxiety, PTSD, and anxiety who was sent in from Dr. Sauceda's office for treatment of urinary tract infection with amphotericin irrigation. Psychiatry was consulted after she made suicidal statements. She is known to me from previous inpatient psychiatric hospitalizations. She was seen with her mother in the room with her permission. She states that she became distressed yesterday because her mother left for the evening, she was feeling lonely, and frustrated at being in the hospital. She notes that the evenings are the hardest time for her, and that she typically has passive suicidal thoughts every night. At home, it helps to have her emotional support dog with her, and the dog sleeps with her as well. She denies that she ever had any plan or intent to harm herself, and states that today the suicidal thoughts have resolved, mood is good and at baseline. She is looking forward to a visit from her dog today, and is hopeful she will be able to go home after a few more days of treatment. She notes she had poor sleep 2 nights ago, and thinks that contributed to her state of mind last night. Last night, her sleep was much better, and she would like to have quetiapine available as needed for sleep while she is here in the hospital. She reports that anxiety has been higher recently, is a daily issue, with excessive worry and racing thoughts. She follows with OMAR Peña, at [facility], and her mother has a list of her home medications, some of which were recently adjusted. They deny any further psychiatric needs, and denies acute safety concerns. She is willing to go to staff if she feels unsafe at any time. Principal Diagnosis Candidial UTI Discharge Exam Constitutional cooperative and comfortable; no acute distress ENMT external ear and nose normal, oropharynx normal Neck normal visual inspection Respiratory normal respiratory effort, lungs clear to auscultation Cardiovascular Rate/Rhythm: regular rate and regular rhythm Gastrointestinal (Abdomen) Percussion/Palpation: abdomen nontender Neurologic awake Psychiatric Orientation: alert and oriented x 3 Discharge Data Allergies Allergy/AdvReac Type Severity Reaction Status Date / Time chlorhexidine Allergy Severe Rash Verified 02/05/19 15:57 adhesive Allergy Intermediate TAPE- HIVES Verified 02/05/19 15:57 ceftriaxone Allergy Intermediate rash, Has Verified 02/05/19 15:57 tolerated cefepime and Zerbaxa Cipro Allergy Intermediate hives Verified 01/11/18 17:31 ciprofloxacin Allergy Intermediate hives Verified 02/05/19 15:57 imipenem Allergy Intermediate PT REPORTS Verified 02/05/19 15:57 ITCHING levofloxacin Allergy Intermediate rash,HEARD Verified 02/05/19 15:57 VOICES linezolid Allergy Intermediate rash Verified 02/05/19 15:57 nitrofurantoin Allergy Intermediate rash and Verified 02/05/19 15:57 hives piperacillin Allergy Intermediate SEVERE Verified 02/05/19 15:57 RASH, HIVES tazobactam Allergy Intermediate SEVERE Verified 02/05/19 15:57 RASH, HIVES trimethoprim Allergy Intermediate Hives Verified 02/05/19 15:57 vancomycin Allergy Intermediate rash Verified 02/05/19 15:57 amikacin Allergy Unknown PER DR Verified 02/05/19 15:57 ROBINS,RXN WAS TO ZOSYN NOT AMKrash;hives Bactrim Allergy Unknown Hives Verified 01/11/18 17:31 sulfamethoxazole Allergy Unknown Hives Verified 02/05/19 15:57 buspirone AdvReac Severe HALLUCINATI Verified 02/05/19 15:57 ONS latex AdvReac Unknown Verified 02/05/19 15:57 Consultations 02/05/19 19:46 Consult Urology Routine 02/06/19 14:01 Consult Infectious Diseases Routine 02/06/19 18:57 Consult Behavioral Health Liaison Stat 02/06/19 19:19 Consult Psychiatry Routine Hospital Course (1) Candidal urinary tract infection: 33-year-old female was admitted on 05 February 2019 with concerns for diaper rash around her perineal area. Candidal urinary tract infection, neurogenic bladder: Has an indwelling suprapubic catheter due to paraplegia from spina bifida. See related ID and urology recommendations. 04Sep UCx grew MDR Pseudomonas. Prior 29Aug UCx positive for Melida glabrata as well. 05Sep started cefepime IV. 04Sep also on amphotericin B as bladder irrigation. Planned 5-day course for both. On Flomax. At time of dischage, she requries one more dose of Cefepime to complete 5 day course. She will return to [facility] for last dose of Cefepime tomorrow AM and is agreeable to this plan. Open wound on perineum: Wound care ongoing. Silver Silvadene and triamcinolone TID. Anxiety, suicidal ideation: See related psychiatry note. Increased dose of venlafaxine XR. Some episodes of auditory hallucinations as inpatient. She is pending an outpatient appointment with her own psychiatrist for Monday (09Sep) afternoon. Ongoing medical issues: - Sleep apnea: Continue home CPAP. - Hypothyroidism: Continue home Synthroid. - Chronic anemia: Admit hemoglobin 12.5, now stable around 10s. Monitoring. - Spina bifida, paraplegia, morbid obesity. - Asthma: Continue home Advair and as needed albuterol. - Insomnia: Continue home Vistaril - GERD: Continue home Protonix. - History of pulmonary embolism: On Eliquis at home. Code status: Full code. Diet: Regular. DVT prophy: Eliquis. PT/OT: Deferred. [facility]. Case management on board, although patient's mother is quite versed in outpatient care. Was able to get discharged today so she could make psych appt. (2) Neurogenic bladder: (3) Open wound of perineum: (4) Anxiety: (5) Suicidal ideation: (6) Sleep apnea: (7) Hypothyroidism: (8) Chronic anemia: (9) Spina bifida: (10) Paraplegia: (11) Morbid obesity: (12) Asthma: (13) Insomnia: (14) GERD (gastroesophageal reflux disease): (15) History of pulmonary embolus (PE): Total Time Total Time Spent Total Time Spent (In Minutes): 45 Total Time Includes: Examination of the Patient, Discharge Planning, Medication Reconciliation and Communication With Other Providers Discharge Plan Discharge Items Patient Disposition: Home - Home Health Services Reason For Visit: UTI, BLADDER IRRIGATION Discharge Diagnosis: Candidal urinary tract infection, neurogenic bladder Discharge Goals: Therapeutic intervention Activity: Resume your previous activity Non-emergency contact: Primary Care Provider Call non-emergency contact if: you have any medication questions and your symptoms worsen Follow-up/Referrals: Glea Boone MD [Primary Care Provider] - 02/19/19 2:00 pm (Please, follow up with Dr. Boone on MondayFebruary 19 at 2:00 pm. *If you need to change this appointment, call the office at [phone].) Diet: Regular Addtl Provider Instructions: You were treated for Candidal urinary tract infection with a neurogenic bladder. You were treated with Amphotericin B bladder irrigation which is an anti- fungal. You were also treated with Cefepime, a 5 day course. You will need two more doses of Cefepime at home to complete the 5 day course. Please follow up with your psychiatrist to discuss concerns with mood. Please follow up with your primary care physician for hospital follow up for next available appointment. Prescriptions: Continued silver sulfadiazine [Silvadene] 1 % cream 1 appln TOP Q8H Qty: 25 RF: 2 potassium chloride 20 mEq tablet,ER particles/crystals 20 meq PO BID RF: 0 lubiprostone [Amitiza] 24 mcg capsule See Rx Instructions .ROUTE .COMPLEX Qty: 60 RF: 3 oxycodone 5 mg capsule 5 mg PO Q6H PRN (Reason: pain) Qty: 28 RF: 0 famotidine 40 mg tablet See Rx Instructions .ROUTE .COMPLEX Qty: 30 RF: 11 bupropion HCl 100 mg tablet sustained-release 12 hr 100 mg PO DAILY Qty: 30 RF: 0 cetirizine [Zyrtec] 10 mg tablet 10 mg PO BID Qty: 60 RF: 0 magnesium oxide 400 mg magnesium capsule 400 mg PO DAILY Qty: 30 RF: 0 ketoconazole 2 % shampoo See Patient Comments appln TOP Q2D RF: 0 Eucerin Calming Itch-Relief 0.1 % lotion 0.1 % TOP UD RF: 0 acetaminophen 500 mg tablet 1,000 mg PO Q6H PRN (Reason: fever or pain) RF: 0 Hydrofera Blue 4 X 4 " bandage 1 ea TOP UD RF: 0 triamcinolone acetonide 0.1 % cream 1 appln topical TID RF: 0 nystatin-triamcinolone 100,000-0.1 unit/gram-% ointment 1 appln topical TID PRN (Reason: AFFECTED SKIN) Qty: 1 RF: 0 dihydroergotamine 0.5 mg/pump act. (4 mg/mL) spray,non-aerosol See Patient Comments intranasal .COMPLEX RF: 0 Eliquis 5 mg tablet 5 mg PO BID Qty: 90 RF: 1 tramadol 50 mg tablet 50 mg PO TID PRN (Reason: headache) Qty: 30 RF: 0 miscellaneous medical supply misc .ROUTE .MEDSUPPLY Qty: 1 RF: 0 venlafaxine 150 mg capsule,extended release 24hr 150 mg PO QAM RF: 0 cyanocobalamin (vitamin B-12) 500 mcg Tablet 500 mcg PO QAM RF: 0 mexiletine 150 mg capsule 300 mg PO TID RF: 0 pantoprazole 40 mg tablet,delayed release (DR/EC) 40 mg PO BID RF: 0 hyoscyamine sulfate [Levsin] 0.125 mg tablet 0.125 mg PO TIDM RF: 0 trazodone 150 mg tablet 150 mg PO HS RF: 0 metoclopramide HCl [Reglan] 10 mg tablet 10 mg PO BID PRN (Reason: acute headaches) RF: 0 ketamine 100 mg/mL Solution 1 - 2 spray Intranasal DIRECTED MDD 20 PRN (Reason: Migraine Headache) RF: 0 Multi 27-800 mg-mcg Tablet 1 tab PO PM RF: 0 dihydroergotamine [D.H.E.45] 1 mg/mL solution 1 mg IM .COMPLEX PRN (Reason: Migraine Headache) RF: 0 albuterol sulfate [ProAir HFA] 90 mcg/actuation HFA aerosol inhaler 2 puff INHALATION Q4H PRN (Reason: Shortness Of Breath Or Wheezing) RF: 0 Probiotic 3 billion cell capsule 3,000 mmu cells PO PM PRN (Reason: W ANTIBIOTIC) RF: 0 Botox 100 unit Recon Soln 1 dose IM Q90D RF: 0 benztropine 1 mg tablet 1 mg PO BID RF: 0 topiramate 100 mg Capsule,Sprinkle,Er 24hr 100 mg PO HS RF: 0 levothyroxine 88 mcg tablet 88 mcg PO QAM RF: 0 tamsulosin [Flomax] 0.4 mg Capsule 0.4 mg PO DAILY RF: 0 haloperidol 2 mg tablet 2 mg PO Q12 PRN (Reason: PRN) RF: 0 topiramate [Qudexy XR] 100 mg capsule,sprinkle,ER 24hr 200 mg PO QAM RF: 0 fluticasone propion-salmeterol [Advair Diskus] 500-50 mcg/dose Blister With Device 1 inh INHALATION BID RF: 0 levalbuterol HCl [Xopenex] 0.63 mg/3 mL Solution For Nebulization 0.63 mg INHALATION TID PRN (Reason: sob) RF: 0 Rexulti 2 mg tablet 6 mg PO QAM RF: 0 hydroxyzine HCl 25 mg tablet 25 mg PO QID RF: 0 Ajovy 225 mg/1.5 mL syringe 225 mg subcut MONTHLY RF: 0 mirabegron 25 mg Tablet Extended Release 24 Hr 25 mg PO PM RF: 0 ondansetron 8 mg tablet,disintegrating 8 mg PO TID PRN (Reason: Nausea) RF: 0 polyethylene glycol 3350 [Miralax] 17 gram Powder In Packet 17 g PO TID 60 Days Qty: 60 RF: 0 Elmiron 100 mg capsule 100 mg PO TID Qty: 30 RF: 0 promethazine 12.5 mg tablet 12.5 mg PO Q6H PRN (Reason: allergy symptoms) Qty: 20 RF: 0 hydrocortisone 1 % cream 1 appln TOP BID PRN (Reason: rash) Qty: 14.2 RF: 0 Stand-Alone Forms: [facility] Discharge Orders: Discharge Order (Routine); Ordered 02/11/19 Ordered By: Ramon Nieves Admission Data Admit Date/Time: 02/05/19 17:28 Attending Provider: Vinicius Pelayo Admit Provider: Keiry Reddy Primary Care Provider: Gela Boone Other Providers: Keiry Reddy ; Mariano Washington I. ; Sourav Sauceda ; Irina Colon ; Paul Cabrales Service: Medical Other Interventions: Discharge Summary Assessment (RN) Last Done: 02/11/19 13:31 DC Date/Time DO NOT enter until pt leaves facility: 02/11/19 14:45 Supervising Physician Co-Signing Physician Notes Attending attestation Pt seen and examined in concert with Dr. Nieves. In agreement with the documented findings as noted in the resident documentation with any exceptions or additions as noted here. UTI, candidal, in the setting of neurogenic bladder w/ indwelling cath - ID and Urology consultation - Complete course of IV Cefepime at [facility] tomorrow. Completed course of amphotericin B per ID recommendations. Continue tamsulosin. Perineal open wound - continue wound care as outpatient w/ HH as noted Anxiety - tolerating increased venlafaxine dose well. Continue remaining regimen. F/U with psychiatry at 1600 today. Else see resident documentation as noted. Resident Activity Tracking Resident Involvement: Resident Care Provided Care Provided: Adult Hospital Medicine
[2019-02-11] MEDS: AMPHOTERICIN B IR SCH ×2 (10:00→13:52)
[2019-02-11] MEDS: STERILE IR SCH ×2 (10:00→13:52)
[2019-02-11] MEDS: WATER IR SCH ×2 (10:00→13:52)
[2019-02-11] MEDS ORDERED: CEFEPIME 2,000 MG in SYRINGE 7.5 ML IV ONE (12:00)
== END 2019-02-11 14:45 | disposition home health service (06) | DRG 699 ==
LOC: 2W 17:28 → SUATTDRO 17:28 → 3W 02-06 13:07

== ENCOUNTER 2019-02-18 14:49 | Inpatient (IN) ==
[2019-02-18] MEDS ORDERED: IBUPROFEN 600 MG TAB PO STA (16:30)
[2019-02-18] MEDS ORDERED: SODIUM CHLORIDE 0.9% 1000ML 1,000 ML IV ONE ×3 (17:13→18:45)
[2019-02-18] MEDS ORDERED: DiphenhydrAMINE HCL 50 MG/ML VIAL IV STA (17:27)
[2019-02-18] MEDS ORDERED: PIPERACILLIN/TAZOBACTAM 4.5 GM/120 ML BAG IV ONE (17:28)
[2019-02-18] MEDS ORDERED: PIPERACILL/TAZOBAC CONSULT ACTIVE PRN (17:28)
--- NOTE | 2019-02-18 17:38 | XRay Report ---
XR chest 1V portable CLINICAL HISTORY: Sepsis COMPARISON STUDY: Chest CT November 09, 2018. Chest radiograph January 17, 2019. FINDINGS: Lung volumes are diminished. This is unchanged. A right ventriculopleural shunt catheter is noted. A right internal jugular [id number] is in place. There is no evidence for pulmonary edema. Mild bibasilar opacities favor atelectasis. Cardiomegaly is unchanged. There is no evidence for pulm onary edema. IMPRESSION: No change in appearance of the chest. Low lung volumes with bibasilar opacities suggesti ve of atelectasis. Electronically signed by: Ryan Boone M.D. 02/18/2019 5:37 PM
[2019-02-18 17:58] LABS: Basophils # (auto) 0.01 K/uL (0-0.2); Basophils % (auto) 0.1 %; Eosinophils # (auto) 0.03 K/uL (0-0.5); Eosinophils % (auto) 0.2 %; Hemoglobin 11.2 g/dL (12.0-16.0); Immature Granulocytes # (auto) 0.02 K/uL (0.00-0.02); Immature Granulocytes % (auto) 0.2 %; Lymphocytes # (auto) 1.07 K/uL (1.2-3.4); Lymphocytes % (auto) 8.8 %; Mean Corpuscular Hemoglobin 28.9 pg (25-34); Mean Corpuscular Hgb Conc 31.1 g/dL (32-36); Mean Platelet Volume 10.2 fL (7.4-10.4); Monocytes # (auto) 0.63 K/uL (0.11-0.59); Monocytes % (auto) 5.2 %; Neutrophils # (auto) 10.36 K/uL (1.4-6.5); Neutrophils % (auto) 85.5 %; Platelet Count 210 K/uL (130-400); RDW Coefficient of Variation 16.3 % (11.5-14.5); RDW Standard Deviation 55.4 fL (36.4-46.3); Red Blood Count 3.87 M/uL (4.2-5.4); White Blood Count 12.12 K/uL (4.8-10.8)
[2019-02-18 18:12] LABS: INR 1.3 (0.9-1.1); Partial Thromboplastin Ratio 1.5; Partial Thromboplastin Time 39.8 Seconds (21.0-31.0); Prothrombin Time 13.2 Seconds (9.0-12.0)
[2019-02-18 18:17] LABS: Albumin Level 2.7 gm/dl (3.4-5.0); BUN Creatinine Ratio 12.6 (10-20); Calcium 8.7 mg/dl (8.5-10.1); Creatinine Clr Calc Pharmacy 92.5 ml/min; Est GFR (African American) 117.4; Est GFR (Non-African American) 101.3; Potassium 3.3 mmol/L (3.5-5.1)
[2019-02-18 18:20] LABS: Albumin Globulin Ratio 0.6 (0.9-2); Bilirubin,Total 0.3 mg/dl (0.2-1); Globulin 4.7 gm/dl (2.5-4.0); Total Protein 7.4 gm/dl (6.4-8.2)
[2019-02-18 18:28] LABS: Appearance Urine Cloudy (Clear); Bilirubin Urine Negative (Negative); Blood Urine Negative (Negative); Color Urine Dark Yellow; Glucose Urine UA Negative (Negative); Ketones Urine Negative (Negative); Leukocyte Esterase Urine Trace (Negative); Nitrite Urine Positive (Negative); Protein Urine Negative (Negative); Urobilinogen Urine Negative (Negative)
[2019-02-18 18:58] LABS: Bacteria Urine Automated 2+ (Negative); Cast Urine Automated 0 /lpf (0-5); Epithelial Cell Urine Auto >30 /lpf (0-5); RBC Urine Automated 0-4 /hpf (0-4)
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
[2019-02-18] MEDS ORDERED: PROMETHAZINE HCL 25 MG TAB PO PRN (22:45)
[2019-02-18] MEDS ORDERED: LEVALBUTEROL HCL 0.63 MG/3 ML NEB INH PRN (22:45)
[2019-02-18] MEDS ORDERED: METOCLOPRAMIDE HCL 10 MG TABLET PO PRN (22:45)
[2019-02-18] MEDS ORDERED: DIHYDROERGOTAMINE MESYLATE 1 MG/ML VIAL IM PRN (22:45)
[2019-02-18] MEDS ORDERED: ACETAMINOPHEN 500 MG TAB PO PRN (22:45)
[2019-02-18] MEDS ORDERED: ONDANSETRON 8MG OD TAB PO PRN (22:45)
[2019-02-18] MEDS ORDERED: NYSTATIN/TRIAMCIN OINT 15 GM TUBE EXT PRN (22:45)
[2019-02-18] MEDS ORDERED: ALBUTEROL HFA 8 GM INHALER INH PRN (22:45)
[2019-02-18] MEDS ORDERED: HYDROCORTISONE 1% CRM 30 GM TUBE EXT PRN (22:45)
[2019-02-19] MEDS: NSS + 20MEQ KCL 20 MEQ/1,000 ML BAG IV SCH ×3 (00:11→15:36)
[2019-02-19] MEDS: PIPERACILLIN/TAZOBACTAM 3.375 GM in DEXTROSE 5% 100 ML IV SCH ×4 (01:15→23:30)
[2019-02-19] MEDS: LEVOTHYROXINE SODIUM 88 MCG TABLET PO SCH (05:45)
[2019-02-19] MEDS: TOPIRAMATE PO SCH (07:24)
[2019-02-19] MEDS: REXULTI PO SCH (07:25)
[2019-02-19] MEDS: MEXILETINE HCL 150 MG PO SCH ×3 (07:26→21:41)
[2019-02-19] MEDS: POTASSIUM CHLORIDE 20 MEQ TABCR PO SCH ×2 (07:27→16:37)
[2019-02-19] MEDS: LUBIPROSTONE PO SCH ×2 (07:27→16:38)
[2019-02-19] MEDS: VENLAFAXINE HCL XR 37.5 MG CAPXR PO SCH (07:28)
[2019-02-19] MEDS: POLYETHYLENE (MIRALAX) 17 GM PACK PO SCH ×3 (07:28→21:42)
[2019-02-19] MEDS: PANTOprazole 40 MG TAB PO SCH ×2 (07:28→21:42)
[2019-02-19] MEDS: APIXABAN 5 MG TABLET PO SCH ×2 (07:28→21:40)
[2019-02-19] MEDS: FUROSEMIDE 20 MG TAB PO SCH ×2 (07:29→16:37)
[2019-02-19] MEDS: BuPROPion SR 100 MG TABCR PO SCH (07:29)
[2019-02-19] MEDS: MIRABEGRON ER 25 MG TAB PO SCH (07:29)
[2019-02-19] MEDS: VENLAFAXINE HCL XR 150 MG CAPXR PO SCH (07:29)
[2019-02-19] MEDS: FLUTICASONE/SALMETEROL (ADVAIR) 500/50 INH 14 PUFF INH SCH ×2 (07:30→21:39)
--- NOTE | 2019-02-19 08:43 | Urology Progress Note ---
Date of Service February 19, 2019 Assessment & Plan (1) Sepsis due to urinary tract infection: 33 YO female with indwelling SP tube and recurrent UTI. Infectious disease consult pending. Patient reports that she is due for her weekly SP tube change today, to be completed by her mother. Her tube appears to be draining appropriately and her amount of sediment looks improved, has actually decreased from her baseline. Patient inquires about URO intervention ie. cysto while in house - I explained that this cannot be completed while she is acutely infected. Has outpatient follow up pending with Dr. Washington. Continue hand irrigation with sterile water. Please contact our service if we can be of further assistance during hospitalization. (2) Chronic suprapubic catheter: Subjective 33 YO female, known to our service with indwelling SP tube and recurrent UTI. Patient reports worsening abdominal pain, fever bringing her to the hospital yesterday. She was admitted for sepsis. Infectious disease consult pending as patient was recently treated for C Glabrata. Reports feeling okay this morning, resting comfortably. SP remains patent draining yellow urine. Intermittently febrile. No nausea. Review of Systems Review of Systems: Per HPI. Physical Exam Physical Exam: NAD. Resp effort normal. No JVD. Abd soft, nontender. : SP patent draining yellow urine. A&Ox3, appropriate affect. Results & Data Vital Signs (Past 12 Hours) Vital Signs Temp Pulse Pulse Resp BP Pulse Ox 02/19/19 07:43 37.8 C H 102 H 18 114/67 94 02/19/19 03:31 36.6 C 94 H 24 100/70 97 02/18/19 22:47 96 H 02/18/19 22:45 36.8 C 96 H 19 105/58 L 96 02/18/19 21:54 89 18 124/64 94 02/18/19 20:57 90 18 95/62 L 98
[2019-02-19] MEDS ORDERED: MEXILETINE HCL 150 MG CAPSULE PO SCH (09:00)
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
--- NOTE | 2019-02-19 10:22 | Family Medicine Progress Note ---
Date of Service February 19, 2019 Assessment & Plan (1) Pseudomonas aeruginosa infection: - long hx of complicated UTIs from fungi and bacteria - suprapubic catheter in place - Urine culture 02/16 grew P. Aeruginosa - awaiting sensitivities - covering with Pip/Tazo per ID recommendations - Urology on board; appreciate recommendations regarding prevention of recurrent infections (2) Hypokalemia: - taking home dose K pills - 20 mEq K riders with fluids (3) History of pulmonary embolus (PE): - continuing home eliquis Supervising Physician Co-Signing Physician Notes I personally examined the patient and verified all canales points of history and exam, discussed case, and agree with decision making with Dr Simon. Still feeling somewhat feverish although her temperature is normalized. Extensive discussions on possible methods to cut down on her recurrent urinary tract infections. She requests Seroquel at bedtime for sleep while in the hospital. She also notes that infectious disease had actually already gotten Zosyn set up for home but it was not able to arrive until today. Vitals noted, in general she is awake and alert pleasant no distress. HEENT normocephalic atraumatic mucous membranes moist. Breathing unlabored no accessory muscle use good effort. Skin shows no rashes no pallor or icterus. Recurrent urinary tract infection associated with chronic suprapubic catheterthe concern is that she has now had multiple infections leading to hospitalizations almost continuously since December. Treating the infection seems to be fairly easy to get her better, but then she has very fast recurrences. Appreciate urology thoughts on the catheterization, whether or not something such as a silver impregnated catheter may reduce infection (although thus far the best I can find in the literature is that its main benefit would be in short-term catheterization only), possibly a skin decontamination planned such as what is sometimes utilized with MRSA colonized patients (in this case discussed something along the lines of a Betadine wash of her pelvic region possibly weekly to reduce colonization of bacteria), and discussed strict elimination of her sugary/carb laden drinks (as she had a soda and Gatorade on her nightstand as we were having a conversation) given that glucosuria can correlate with infections. We discussed that obviously no solution is going to be perfect, but we need to improve "her law of averages" Stable for [facility] Subjective 33 yo F with extensive PMH of UTI and cystitis, BL BKA, here for fever at home and abdominal pain. Urine culture from 02/16 grew pseudomonas aeurginosa. Pt attests to nausea on a daily basis, no vomiting/diarrhea/constipation. Has a suprapubic catheter that she drains twice a day. Daily SOB but none greater than normal. Denies CP. Review of Systems Constitutional: + fever, + chills and + sweats; no fatigue and no increased appetite Respiratory: no cough, no dyspnea and no pain on inspiration Cardiovascular: no chest pain and no palpitations Gastrointestinal: + abdominal pain and + nausea; no vomiting and no change in bowel habits Genitourinary: + vaginal itching; no dysuria Physical Exam Constitutional: + morbidly obese, cooperative and comfortable Respiratory: normal respiratory effort; no respiratory distress Auscultation: lungs clear to auscultation bilaterally and + wheezes; no cr ackles, no rales and no rhonchi Cardiovascular: Rate/Rhythm: regular rate and regular rhythm Heart Sounds: no click, no gallop and no murmur Results & Data Vital Signs (Past 12 Hours) Vital Signs Temp Pulse Pulse Resp BP Pulse Ox 02/19/19 08:00 102 H 02/19/19 07:43 37.8 C H 102 H 18 114/67 94 02/19/19 03:31 36.6 C 94 H 24 100/70 97 02/18/19 22:47 96 H 02/18/19 22:45 36.8 C 96 H 19 105/58 L 96 Laboratory Results WBC 12.12 K/uL (4.8-10.8) H 02/18/19 17:42 RBC 3.87 M/uL (4.2-5.4) L 02/18/19 17:42 Hgb 11.2 g/dL (12.0-16.0) L 02/18/19 17:42 Hct 36.0 % (37-47) L 02/18/19 17:42 MCV 93.0 fL (80-100) 02/18/19 17:42 MCH 28.9 pg (25-34) 02/18/19 17:42 MCHC 31.1 g/dL (32-36) L 02/18/19 17:42 RDW Std Deviation 55.4 fL (36.4-46.3) H 02/18/19 17:42 RDW Coeff of Neda 16.3 % (11.5-14.5) H 02/18/19 17:42 Plt Count 210 K/uL (130-400) 02/18/19 17:42 MPV 10.2 fL (7.4-10.4) 02/18/19 17:42 Immature Gran % (Auto) 0.2 % 02/18/19 17:42 Neut % (Auto) 85.5 % 02/18/19 17:42 Lymph % (Auto) 8.8 % 02/18/19 17:42 [facility] % (Auto) 5.2 % 02/18/19 17:42 Eos % (Auto) 0.2 % 02/18/19 17:42 Baso % (Auto) 0.1 % 02/18/19 17:42 Immature Gran # (Auto) 0.02 K/uL (0.00-0.02) 02/18/19 17:42 Neut # (Auto) 10.36 K/uL (1.4-6.5) H 02/18/19 17:42 Lymph # (Auto) 1.07 K/uL (1.2-3.4) L 02/18/19 17:42 [facility] # (Auto) 0.63 K/uL (0.11-0.59) H 02/18/19 17:42 Eos # (Auto) 0.03 K/uL (0-0.5) 02/18/19 17:42 Baso # (Auto) 0.01 K/uL (0-0.2) 02/18/19 17:42 PT 13.2 Seconds (9.0-12.0) H 02/18/19 17:42 INR 1.3 (0.9-1.1) H 02/18/19 17:42 APTT 39.8 Seconds (21.0-31.0) H 02/18/19 17:42 PTT Ratio 1.5 02/18/19 17:42 Sodium 138 mmol/L (136-145) 02/18/19 17:42 Potassium 3.3 mmol/L (3.5-5.1) L 02/18/19 17:42 Chloride 105 mmol/L (98-107) 02/18/19 17:42 Carbon Dioxide 22 mmol/L (21-32) 02/18/19 17:42 Anion Gap 11.0 (3-11) 02/18/19 17:42 BUN 10 mg/dl (7-18) 02/18/19 17:42 Creatinine 0.78 mg/dl (0.6-1.2) 02/18/19 17:42 Est Cr Clr Drug Dosing 92.5 ml/min 02/18/19 17:42 Est GFR ( Amer) 117.4 02/18/19 17:42 Est GFR (Non-Af Amer) 101.3 02/18/19 17:42 BUN/Creatinine Ratio 12.6 (10-20) 02/18/19 17:42 Glucose 144 mg/dl (70-99) H 02/18/19 17:42 Lactate 2.5 mmol/L (0.4-2.0) H* 02/18/19 17:42 Calcium 8.7 mg/dl (8.5-10.1) 02/18/19 17:42 Total Bilirubin 0.3 mg/dl (0.2-1) 02/18/19 17:42 AST 14 U/L (15-37) L 02/18/19 17:42 ALT 41 U/L (12-78) 02/18/19 17:42 Alkaline Phosphatase 103 U/L (45-117) 02/18/19 17:42 Total Protein 7.4 gm/dl (6.4-8.2) 02/18/19 17:42 Albumin 2.7 gm/dl (3.4-5.0) L 02/18/19 17:42 Globulin 4.7 gm/dl (2.5-4.0) H 02/18/19 17:42 Albumin/Globulin Ratio 0.6 (0.9-2) L 02/18/19 17:42 Urine Color Dark Yellow 02/18/19 17:44 Urine Appearance Cloudy (Clear) A 02/18/19 17:44 Urine pH 6.0 (4.5-7.5) 02/18/19 17:44 Ur Specific [place] 1.010 (1.000-1.030) 02/18/19 17:44 Urine Protein Negative (Negative) 02/18/19 17:44 Urine Glucose (UA) Negative (Negative) 02/18/19 17:44 Urine Ketones Negative (Negative) 02/18/19 17:44 Urine Blood Negative (Negative) 02/18/19 17:44 Urine Nitrite Positive (Negative) A 02/18/19 17:44 Urine Bilirubin Negative (Negative) 02/18/19 17:44 Urine Urobilinogen Negative (Negative) 02/18/19 17:44 Ur Leukocyte Esterase Trace (Negative) H 02/18/19 17:44 Urine WBC (Auto) 1-5 /hpf (0-5) 02/18/19 17:44 Urine RBC (Auto) 0-4 /hpf (0-4) 02/18/19 17:44 U Hyaline Cast (Auto) 0 /lpf (0-5) 02/18/19 17:44 U Epithel Cells (Auto) >30 /lpf (0-5) H 02/18/19 17:44 Urine Bacteria (Auto) 2+ (Negative) H 02/18/19 17:44 PG Care Time/CCT Total # of Minutes Spent Total Time Spent with Patient: Total time spent is greater than 50% in coordination of care (as documented) at patient's floor/unit and/or counseling patient: Resident Activity Tracking Resident Involvement: Resident Care Provided Care Provided: Adult Hospital Medicine
[2019-02-19] MEDS: TRAZODONE HCL 50 MG TAB PO SCH (21:40)
[2019-02-19] MEDS: TOPIRAMATE 100 MG TAB PO SCH (21:43)
[2019-02-19] MEDS: QUETIAPINE FUMARATE 25 MG TABLET PO SCH (21:49)
[2019-02-19] MEDS: HEPARIN 100 UNIT/ML 5ML FLUSH FLUSH PRN (21:53)
[2019-02-19] MEDS: HALOPERIDOL 1 MG TAB PO PRN (23:29)
[2019-02-20] MEDS: HEPARIN 100 UNIT/ML 5ML FLUSH FLUSH PRN ×2 (05:33→13:39)
[2019-02-20] MEDS: LEVOTHYROXINE SODIUM 88 MCG TABLET PO SCH (05:58)
[2019-02-20 07:13] LABS: Creatinine Clr Calc Pharmacy 121.6 ml/min; Est GFR (African American) 141.6; Est GFR (Non-African American) 122.1
[2019-02-20] MEDS: POLYETHYLENE (MIRALAX) 17 GM PACK PO SCH ×3 (09:24→21:00)
[2019-02-20] MEDS: TOPIRAMATE PO SCH (09:25)
[2019-02-20] MEDS: LUBIPROSTONE PO SCH ×2 (09:25→16:12)
[2019-02-20] MEDS: REXULTI PO SCH (09:25)
[2019-02-20] MEDS: APIXABAN 5 MG TABLET PO SCH ×2 (09:26→21:23)
[2019-02-20] MEDS: VENLAFAXINE HCL XR 150 MG CAPXR PO SCH (09:26)
[2019-02-20] MEDS: VENLAFAXINE HCL XR 37.5 MG CAPXR PO SCH (09:26)
[2019-02-20] MEDS: POTASSIUM CHLORIDE 20 MEQ TABCR PO SCH ×2 (09:26→16:23)
[2019-02-20] MEDS: FUROSEMIDE 20 MG TAB PO SCH ×2 (09:26→16:24)
[2019-02-20] MEDS: PANTOprazole 40 MG TAB PO SCH ×2 (09:26→21:23)
[2019-02-20] MEDS: BuPROPion SR 100 MG TABCR PO SCH (09:26)
[2019-02-20] MEDS: MEXILETINE HCL 150 MG PO SCH ×3 (09:26→21:23)
[2019-02-20] MEDS: FLUTICASONE/SALMETEROL (ADVAIR) 500/50 INH 14 PUFF INH SCH ×2 (09:27→21:19)
[2019-02-20] MEDS: PIPERACILLIN/TAZOBACTAM 3.375 GM in DEXTROSE 5% 100 ML IV SCH (09:34)
[2019-02-20] MEDS: MIRABEGRON ER 25 MG TAB PO SCH (09:53)
--- NOTE | 2019-02-20 14:32 | Infectious Disease Progress Nt ---
Date of Service February 20, 2019 Assessment & Plan (1) Acute UTI: Patient with recurrent urinary tract infection in the setting of indwelling suprapubic catheter with pseudomonas aeruginosa. As discussed, patient to be treated with IV Zosyn, likely in the range of 10 days total. Given multiple recurrences, would think that further urologic evaluation in order. Neurology to consider further intervention once infection adequately treated. Will follow. (2) Pseudomonas aeruginosa infection: Subjective Patient seen in follow-up for pseudomonal urinary tract today, less abdominal pain. Remains afebrile. Review of Systems Review of Systems: All systems reviewed & are unremarkable except as noted in HPI & below Physical Exam Constitutional: WD/WN, vitals as above + obese Eyes: PERRL, conjunctivae normal, anicteric sclerae ENMT: external ear and nose normal, oropharynx normal Neck: trachea midline, no thyromegaly neck nontender Respiratory: normal respiratory effort, lungs clear to auscultation Cardiovascular: RRR, no murmur, no edema Heart Sounds: no gallop and no cardiac rub Gastrointestinal (Abdomen): normal bowel sounds, soft, nontender, no hepatosplenomegaly Musculoskeletal: Head/Neck/Chest: normocephalic, head atraumatic and neck supple Skin: normal turgor and + erythema (Buttock and vulvar area) Neurologic: moves all extremities and awake; no meningeal signs Psychiatric: A+Ox3, euthymic affect Lymphatic: no cervical or axillary lymphadenopathy no inguinal lymphadenopathy Results & Data Vital Signs (Past 12 Hours) Vital Signs Temp Pulse BP Pulse Ox 02/20/19 09:21 37 C 111 H 129/90 96 Laboratory Results [facility] 02/20/19 05:26 Creatinine 0.59 L Diagnostic Findings Microbiology 02/18/19 17:44 Urine,Straight Cath Urine Culture - Final Pseudomonas aeruginosa 02/18/19 17:42 Blood Aerobic Blood Culture - Preliminary No growth in Aerobic bottle after 24 hours. 02/18/19 17:42 Blood Anaerobic Blood Culture - Preliminary No growth in Anaerobic bottle after 24 hours. 02/18/19 17:42 Blood Aerobic Blood Culture - Preliminary No growth in Aerobic bottle after 24 hours. 02/18/19 17:42 Blood Anaerobic Blood Culture - Preliminary No growth in Anaerobic bottle after 24 hours. PG Care Time/CCT Total # of Minutes Spent Total Time Spent with Patient: Total time spent is greater than 50% in coordination of care (as documented) at patient's floor/unit and/or counseling patient:
[2019-02-20] MEDS ORDERED: DiphenhydrAMINE HCL 50 MG/ML VIAL IV STA (15:38)
[2019-02-20] MEDS: CEFEPIME 2,000 MG in SYRINGE 7.5 ML IV SCH (16:01)
--- NOTE | 2019-02-20 17:47 | Family Medicine Progress Note ---
Date of Service February 20, 2019 Assessment & Plan (1) Pseudomonas aeruginosa infection: - long hx of complicated UTIs from fungi and bacteria - suprapubic catheter in place - Urine culture 02/16 grew P. Aeruginosa - awaiting sensitivities - covering with Pip/Tazo per ID recommendations - Urology on board; appreciate recommendations regarding prevention of recurrent infections - ordered silicone silver alloy coated urinary catheter to specialized home pharmacy to attempt to decrease number of future infections - should be stable to d/c home tomorrow (2) Hypokalemia: - taking home dose K pills - 20 mEq K riders with fluids (3) History of pulmonary embolus (PE): - continuing home eliquis Supervising Physician Co-Signing Physician Notes I personally examined the patient and verified all canales points of history and exam, discussed case, and agree with decision making with Dr Simon. Seen after mid afternoon dose of Zosyn. Patient and mom noted that she abruptly turned red and got itchy. Vitals noted, in general she is awake and alert pleasant no distress. HEENT normocephalic atraumatic mucous membranes moist. Breathing unlabored no accessory muscle use good effort. Skin with a diffuse flat macular redness, it is somewhat warm. No wheals no high places. Recurrent urinary tract infection associated with chronic suprapubic catheterpossible sepsis present on admission (heart rate, respiratory rate, temperature)improving on Zosyn, unfortunately developed what appears to be a drug rash. We will switch out Zosyn for cefepime given that is sensitive to that as well, and will need to re-address home antibiotics given that Zosyn had been set up, but now will need to be cefepime. Will give trial to marco hayes, also to Betadine pelvic washes, and she is already gotten away from sugary drinks. Drug rashstop Zosyn, Benadryl as needed. Hopefully home tomorrow, otherwise as above. Subjective Feeling unwell today. Complains of continuing bladder pain and nausea. Discussed using silver coated suprapubic catheter to try and reduce number of infections. Review of Systems Constitutional: no fever, no chills and no increased appetite Respiratory: + wheezing; no cough and no dyspnea Cardiovascular: no chest pain Gastrointestinal: + abdominal pain and + nausea; no vomiting, no cramping, no constipation and no diarrhea/loose stools Physical Exam Constitutional: + morbidly obese, cooperative and comfortable Respiratory: normal respiratory effort; no respiratory distress Auscultation: lungs clear to auscultation bilaterally and + wheezes; no crackles, no rales and no rhonchi Cardiovascular: Rate/Rhythm: regular rate and regular rhythm Heart Sounds: no click, no gallop and no murmur Gastrointestinal (Abdomen): Inspection/Auscultation: + abdomen distended Percussion/Palpation: + abdomen tender, abdomen soft and + tympanic to percussion; no guarding and abdomen not rigid Results & Data Vital Signs (Past 12 Hours) Vital Signs Temp Pulse Resp BP Pulse Ox 02/20/19 16:12 36.8 C 97 H 18 111/72 97 02/20/19 15:51 36.8 C 111 H 18 142/78 H 96 02/20/19 09:21 37 C 111 H 129/90 96 Laboratory Results WBC 12.12 K/uL (4.8-10.8) H 02/18/19 17:42 RBC 3.87 M/uL (4.2-5.4) L 02/18/19 17:42 Hgb 11.2 g/dL (12.0-16.0) L 02/18/19 17:42 Hct 36.0 % (37-47) L 02/18/19 17:42 MCV 93.0 fL (80-100) 02/18/19 17:42 MCH 28.9 pg (25-34) 02/18/19 17:42 MCHC 31.1 g/dL (32-36) L 02/18/19 17:42 RDW Std Deviation 55.4 fL (36.4-46.3) H 02/18/19 17:42 RDW Coeff of Neda 16.3 % (11.5-14.5) H 02/18/19 17:42 Plt Count 210 K/uL (130-400) 02/18/19 17:42 MPV 10.2 fL (7.4-10.4) 02/18/19 17:42 Immature Gran % (Auto) 0.2 % 02/18/19 17:42 Neut % (Auto) 85.5 % 02/18/19 17:42 Lymph % (Auto) 8.8 % 02/18/19 17:42 [place] % (Auto) 5.2 % 02/18/19 17:42 Eos % (Auto) 0.2 % 02/18/19 17:42 Baso % (Auto) 0.1 % 02/18/19 17:42 Immature Gran # (Auto) 0.02 K/uL (0.00-0.02) 02/18/19 17:42 Neut # (Auto) 10.36 K/uL (1.4-6.5) H 02/18/19 17:42 Lymph # (Auto) 1.07 K/uL (1.2-3.4) L 02/18/19 17:42 [place] # (Auto) 0.63 K/uL (0.11-0.59) H 02/18/19 17:42 Eos # (Auto) 0.03 K/uL (0-0.5) 02/18/19 17:42 Baso # (Auto) 0.01 K/uL (0-0.2) 02/18/19 17:42 PT 13.2 Seconds (9.0-12.0) H 02/18/19 17:42 INR 1.3 (0.9-1.1) H 02/18/19 17:42 APTT 39.8 Seconds (21.0-31.0) H 02/18/19 17:42 PTT Ratio 1.5 02/18/19 17:42 Sodium 138 mmol/L (136-145) 02/18/19 17:42 Potassium 3.3 mmol/L (3.5-5.1) L 02/18/19 17:42 Chloride 105 mmol/L (98-107) 02/18/19 17:42 Carbon Dioxide 22 mmol/L (21-32) 02/18/19 17:42 Anion Gap 11.0 (3-11) 02/18/19 17:42 BUN 10 mg/dl (7-18) 02/18/19 17:42 Creatinine 0.59 mg/dl (0.6-1.2) L 02/20/19 05:26 Est Cr Clr Drug Dosing 121.6 ml/min 02/20/19 05:26 Est GFR ( Amer) 141.6 02/20/19 05:26 Est GFR (Non-Af Amer) 122.1 02/20/19 05:26 BUN/Creatinine Ratio 12.6 (10-20) 02/18/19 17:42 Glucose 144 mg/dl (70-99) H 02/18/19 17:42 Lactate 2.5 mmol/L (0.4-2.0) H* 02/18/19 17:42 Calcium 8.7 mg/dl (8.5-10.1) 02/18/19 17:42 Total Bilirubin 0.3 mg/dl (0.2-1) 02/18/19 17:42 AST 14 U/L (15-37) L 02/18/19 17:42 ALT 41 U/L (12-78) 02/18/19 17:42 Alkaline Phosphatase 103 U/L (45-117) 02/18/19 17:42 Total Protein 7.4 gm/dl (6.4-8.2) 02/18/19 17:42 Albumin 2.7 gm/dl (3.4-5.0) L 02/18/19 17:42 Globulin 4.7 gm/dl (2.5-4.0) H 02/18/19 17:42 Albumin/Globulin Ratio 0.6 (0.9-2) L 02/18/19 17:42 Urine Color Dark Yellow 02/18/19 17:44 Urine Appearance Cloudy (Clear) A 02/18/19 17:44 Urine pH 6.0 (4.5-7.5) 02/18/19 17:[address] 1.010 (1.000-1.030) 02/18/19 17:44 Urine Protein Negative (Negative) 02/18/19 17:44 Urine Glucose (UA) Negative (Negative) 02/18/19 17:44 Urine Ketones Negative (Negative) 02/18/19 17:44 Urine Blood Negative (Negative) 02/18/19 17:44 Urine Nitrite Positive (Negative) A 02/18/19 17:44 Urine Bilirubin Negative (Negative) 02/18/19 17:44 Urine Urobilinogen Negative (Negative) 02/18/19 17:44 Ur Leukocyte Esterase Trace (Negative) H 02/18/19 17:44 Urine WBC (Auto) 1-5 /hpf (0-5) 02/18/19 17:44 Urine RBC (Auto) 0-4 /hpf (0-4) 02/18/19 17:44 U Hyaline Cast (Auto) 0 /lpf (0-5) 02/18/19 17:44 U Epithel Cells (Auto) >30 /lpf (0-5) H 02/18/19 17:44 Urine Bacteria (Auto) 2+ (Negative) H 02/18/19 17:44 PG Care Time/CCT Total # of Minutes Spent Total Time Spent with Patient: Total time spent is greater than 50% in coordination of care (as documented) at patient's floor/unit and/or counseling patient: Resident Activity Tracking Resident Involvement: Resident Care Provided Care Provided: Adult Hospital Medicine
[2019-02-20] MEDS ORDERED: CETIRIZINE HCL 10 MG TABLET PO ONE (21:11)
[2019-02-20] MEDS: TOPIRAMATE 100 MG TAB PO SCH (21:39)
[2019-02-20] MEDS: QUETIAPINE FUMARATE 25 MG TABLET PO SCH (21:40)
[2019-02-20] MEDS: TRAZODONE HCL 50 MG TAB PO SCH (21:40)
[2019-02-20] MEDS: HALOPERIDOL 1 MG TAB PO PRN (22:39)
[2019-02-21] MEDS: CEFEPIME 2,000 MG in SYRINGE 7.5 ML IV SCH (05:00)
[2019-02-21] MEDS: LEVOTHYROXINE SODIUM 88 MCG TABLET PO SCH (05:00)
[2019-02-21] MEDS: HEPARIN 100 UNIT/ML 5ML FLUSH FLUSH PRN ×2 (05:05→05:48)
[2019-02-21 06:58] LABS: Creatinine Clr Calc Pharmacy 123.7 ml/min; Est GFR (African American) 142.4; Est GFR (Non-African American) 122.8
[2019-02-21] MEDS: VENLAFAXINE HCL XR 150 MG CAPXR PO SCH (08:35)
[2019-02-21] MEDS: PANTOprazole 40 MG TAB PO SCH (08:35)
[2019-02-21] MEDS: VENLAFAXINE HCL XR 37.5 MG CAPXR PO SCH (08:35)
[2019-02-21] MEDS: BuPROPion SR 100 MG TABCR PO SCH (08:35)
[2019-02-21] MEDS: MIRABEGRON ER 25 MG TAB PO SCH (08:35)
[2019-02-21] MEDS: REXULTI PO SCH (08:36)
[2019-02-21] MEDS: FUROSEMIDE 20 MG TAB PO SCH (08:36)
[2019-02-21] MEDS: MEXILETINE HCL 150 MG PO SCH (08:36)
[2019-02-21] MEDS: POTASSIUM CHLORIDE 20 MEQ TABCR PO SCH (08:36)
[2019-02-21] MEDS: TOPIRAMATE PO SCH (08:37)
[2019-02-21] MEDS: APIXABAN 5 MG TABLET PO SCH (08:37)
[2019-02-21] MEDS: FLUTICASONE/SALMETEROL (ADVAIR) 500/50 INH 14 PUFF INH SCH (08:37)
[2019-02-21] MEDS: LUBIPROSTONE PO SCH (08:37)
[2019-02-21] MEDS: POLYETHYLENE (MIRALAX) 17 GM PACK PO SCH (08:38)
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
== END 2019-02-21 12:35 | disposition home or self-care (01) | DRG 698 ==
LOC: ED 14:49 → 2E 14:49 → SUATTDRO 21:43 → OBSVTOIN 21:43 → 2E 22:15 → 3N 02-19 18:16

== ENCOUNTER 2019-03-26 20:58 | Inpatient (IN) ==
[2019-03-26] MEDS ORDERED: SODIUM CHLORIDE 0.9% 1000ML 1,000 ML IV SCH (21:30)
[2019-03-26 21:58] LABS: Basophils # (auto) 0.11 K/uL (0-0.2); Basophils % (auto) 1.3 %; Eosinophils % (auto) 5.7 %; Hematocrit (blood only) 40.3 % (37-47); Hemoglobin 13.6 g/dL (12.0-16.0); Immature Granulocytes # (auto) 0.02 K/uL (0.00-0.02); Immature Granulocytes % (auto) 0.2 %; Lymphocytes % (auto) 29.6 %; Mean Corpuscular Hemoglobin 29.6 pg (25-34); Mean Corpuscular Hgb Conc 33.7 g/dL (32-36); Mean Corpuscular Volume 87.8 fL (80-100); Mean Platelet Volume 10.2 fL (7.4-10.4); Monocytes # (auto) 0.75 K/uL (0.11-0.59); Monocytes % (auto) 8.6 %; Neutrophils # (auto) 4.79 K/uL (1.4-6.5); Neutrophils % (auto) 54.6 %; Platelet Count 346 K/uL (130-400); RDW Standard Deviation 48.2 fL (36.4-46.3); Red Blood Count 4.59 M/uL (4.2-5.4); White Blood Count 8.77 K/uL (4.8-10.8)
[2019-03-26 22:13] LABS: Glucose 156 mg/dl (70-99)
--- NOTE | 2019-03-26 22:30 | XRay Report ---
XR chest 1V portable HISTORY: weakness COMPARISON: Chest 03/17/2019. FINDINGS: There are low lung volumes. No pneumothorax. No pleural effusions. The heart is stable in s ize. No new focal lung consolidations to suggest pneumonia. No evidence for pulmonary edema. Right ju gular Port-A-Cath terminates at the right atrium. This is similar to the prior study. The visualized right-sided ventricular shunt appears intact. There is also a stable and used right-sided shunt perry ter. IMPRESSION: No significant change compared to the prior study. No acute process. Electronically signed by: Edward Dixon M.D. 03/26/2019 10:29 PM
[2019-03-26 22:33] LABS: Alanine Aminotransferase 45 U/L (12-78); Albumin Globulin Ratio 0.7 (0.9-2); Albumin Level 3.4 gm/dl (3.4-5.0); Alkaline Phosphatase 114 U/L (45-117); Aspartate Aminotransferase 22 U/L (15-37); BUN Creatinine Ratio 14.2 (10-20); Bilirubin,Total 0.3 mg/dl (0.2-1); Blood Urea Nitrogen 13 mg/dl (7-18); Calcium 9.1 mg/dl (8.5-10.1); Carbon Dioxide 20 mmol/L (21-32); Chloride 106 mmol/L (98-107); Est GFR (Non-African American) 80.3; Potassium 2.4 mmol/L (3.5-5.1); Sodium 136 mmol/L (136-145); Total Protein 8.4 gm/dl (6.4-8.2)
[2019-03-26] MEDS ORDERED: ONDANSETRON INJ 2 MG/ML 2 ML VIAL IV STA (23:16)
[2019-03-26 23:24] LABS: Magnesium 1.8 mg/dl (1.8-2.4)
[2019-03-26] MEDS: POTASSIUM CHLORIDE / WTR 10 MEQ/100 ML PLCT IV SCH (23:40)
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
[2019-03-27] MEDS ORDERED: ONDANSETRON 8MG OD TAB PO PRN (01:06)
[2019-03-27] MEDS ORDERED: LEVALBUTEROL HCL 0.63 MG/3 ML NEB INH PRN (01:06)
[2019-03-27] MEDS ORDERED: METHYLENE BLUE TOP SCH (01:06)
[2019-03-27] MEDS ORDERED: FLUOCINONIDE 0.05% OINT 15 GM TUBE EXT PRN (01:06)
[2019-03-27] MEDS ORDERED: ACETAMINOPHEN 500 MG TAB PO PRN (01:06)
[2019-03-27] MEDS ORDERED: POLYVINYL ALCOHOL TOP SCH (01:06)
[2019-03-27] MEDS ORDERED: GENTIAN VIOLET TOP SCH (01:06)
[2019-03-27] MEDS ORDERED: CETIRIZINE HCL 10 MG TABLET PO PRN (01:06)
[2019-03-27] MEDS ORDERED: POLYETHYLENE (MIRALAX) 17 GM PACK PO PRN (01:06)
[2019-03-27] MEDS ORDERED: ALBUTEROL HFA 8 GM INHALER INH PRN (01:06)
[2019-03-27] MEDS ORDERED: NYSTATIN POWDER 15GM BTL EXT PRN (01:06)
[2019-03-27] MEDS ORDERED: NYSTATIN/TRIAMCIN OINT 15 GM TUBE EXT PRN (01:06)
[2019-03-27 01:34] LABS: Phosphorus 3.4 mg/dl (2.5-4.9)
[2019-03-27] MEDS: LACTATED RINGER'S 1,000 ML IV SCH ×2 (01:39→09:24)
[2019-03-27] MEDS: POTASSIUM CHLORIDE / WTR 20 MEQ/100 ML PLCT IV SCH ×3 (01:39→05:31)
[2019-03-27] MEDS: MAGNESIUM SULFATE / D5W 1 GM/100 ML BAG IV SCH ×2 (01:40→02:42)
[2019-03-27 02:26] VITALS: PULSE 99
[2019-03-27] MEDS: PATIENT'S HEIGHT AND/OR WEIGHT NEEDED SCH ×4 (02:43→07:40)
[2019-03-27 06:09] LABS: Basophils # (auto) 0.07 K/uL (0-0.2); Basophils % (auto) 0.9 %; Eosinophils # (auto) 0.53 K/uL (0-0.5); Eosinophils % (auto) 6.8 %; Immature Granulocytes # (auto) 0.01 K/uL (0.00-0.02); Immature Granulocytes % (auto) 0.1 %; Lymphocytes # (auto) 2.29 K/uL (1.2-3.4); Lymphocytes % (auto) 29.5 %; Mean Corpuscular Hemoglobin 28.5 pg (25-34); Mean Corpuscular Hgb Conc 32.4 g/dL (32-36); Mean Corpuscular Volume 87.9 fL (80-100); Mean Platelet Volume 9.8 fL (7.4-10.4); Monocytes # (auto) 0.93 K/uL (0.11-0.59); Neutrophils # (auto) 3.94 K/uL (1.4-6.5); Neutrophils % (auto) 50.7 %; Platelet Count 267 K/uL (130-400); RDW Standard Deviation 48.3 fL (36.4-46.3); Red Blood Count 4.21 M/uL (4.2-5.4); White Blood Count 7.77 K/uL (4.8-10.8)
[2019-03-27] MEDS ORDERED: LEVOTHYROXINE SODIUM 88 MCG TABLET PO SCH (06:30)
[2019-03-27] MEDS: POTASSIUM CHLORIDE / WTR 10 MEQ/100 ML PLCT IV SCH (06:41)
[2019-03-27 06:46] LABS: BUN Creatinine Ratio 14.8 (10-20); Calcium 8.6 mg/dl (8.5-10.1); Creatinine Clr Calc Pharmacy 77.3 ml/min; Est GFR (African American) 103.6; Est GFR (Non-African American) 89.4; Magnesium 2.5 mg/dl (1.8-2.4); Potassium 3.3 mmol/L (3.5-5.1)
[2019-03-27] MEDS: MEXILETINE HCL 150 MG CAPSULE PO SCH ×2 (07:39→11:50)
[2019-03-27] MEDS: HYOSCYAMINE SULFATE 0.125 MG TAB PO SCH ×2 (07:40→11:50)
[2019-03-27] MEDS ORDERED: PANTOprazole 40 MG TAB PO SCH (08:00)
[2019-03-27] MEDS ORDERED: LUBIPROSTONE 8 MCG CAP PO SCH (08:00)
[2019-03-27] MEDS ORDERED: DAPTOmycin 500 MG in SYRINGE 0 ML IV SCH (09:00)
[2019-03-27] MEDS ORDERED: APIXABAN 5 MG TABLET PO SCH (09:00)
[2019-03-27] MEDS ORDERED: DAPTOmycin 500 MG VIAL IV SCH (09:00)
[2019-03-27] MEDS ORDERED: VENLAFAXINE HCL XR 37.5 MG CAPXR PO SCH (09:00)
[2019-03-27] MEDS ORDERED: CYANOCOBALAMIN 500 MCG TABLET (VITAMIN B-12) PO SCH (09:00)
[2019-03-27] MEDS ORDERED: FLUTICASONE/SALMETEROL (ADVAIR) 500/50 INH 14 PUFF INH SCH (09:00)
[2019-03-27] MEDS ORDERED: VENLAFAXINE HCL XR 150 MG CAPXR PO SCH (09:00)
[2019-03-27] MEDS ORDERED: TOPIRAMATE 100 MG TAB PO SCH ×2 (09:00→21:00)
[2019-03-27] MEDS ORDERED: NON-FORMULARY MEDICATION (Lactobacillus Combination No.4 [Probiotic] 3,000 mmu cells) PO SCH (11:30)
[2019-03-27] MEDS ORDERED: PRENATAL VITAMIN 1 TAB PO SCH (11:30)
[2019-03-27] MEDS ORDERED: REXULTI 4 MG PO SCH (14:00)
[2019-03-27 15:15] VITALS: BP 126/77; TEMP 98.1; O2SAT 94
[2019-03-27] MEDS ORDERED: TRAZODONE HCL 50 MG TAB PO SCH (21:00)
[2019-03-27] MEDS ORDERED: QUETIAPINE FUMARATE 25 MG TABLET PO SCH (21:00)
--- NOTE | 2019-04-02 16:50 | Discharge Summary ---
Date of Service March 27, 2019 Admission HPI Per Admitting Provider Connie Chairez is an unfortunate 34-year-old female with multiple medical problems, most notably spina bifida, hydrocephalus, neurogenic bladder with suprapubic catheter in situ, wheelchair-bound, history of PE on Eliquis anticoagulation. Patient presents today with 2 days of headache, nausea, dizziness, lightheadedness and double vision. She reports having fairly severe diarrhea 4 nights ago, at least 10 episodes of loose stool. She reports normal appetite and p.o. intake. Upon arrival to the ER she is afebrile, hemodynamically stable, no acute distress. Intake labs reveal hypokalemia with a K of 2.4. She is complaining of diffuse body pain 8 out of 10 in severity. Patient with recently diagnosed MRSA UTI (culture from 03/21/2019). She follows with Dr. Sauceda of [place] and was recently started on daptomycin 4 mg/kg infusion. She received her first treatment today at 1330. She denies fevers, chills, sweats. Her suprapubic catheter is in place with adequate output, no drainage. She reports ongoing auditory hallucinations which frequently intensify when she has an infection or is on antibiotic therapy. She denies visual hallucinations/homicidal or suicidal ideation. ER course: Zofran 4 mg, KCl 10 mEq IV, normal saline x1 L Principal Diagnosis hypokalemia Discharge Exam General: patient resting comfortably, NAD, non-toxic in appearance Skin: warm, dry, intact, slight redness surrounding suprapubic catheter with serosanguineous drainage, intertrigo HEENT: NC/AT, PERRL, EOMI, anicteric sclera, conjunctiva without injection, external ear normal to inspection and nontender, nares patent, slightly dry mucus membranes, dentition intact, no oropharyngeal lesions, neck supple, tra neil midline, no LAD, no thyromegaly, no JVD Heart: +S1/S2, regular, no m/r/g, port in right chest wall, nontender to palpation, no erythema or drainage Lungs: equal air entry bilaterally, no rales/rhonchi/wheezes, diminished in bases Abd: Obese, +BS, soft, NT/ND, no masses/organomegaly/ascites, suprapubic catheter in place Ext: Status post bilateral BKA Neuro: nonfocal, speech intact, no facial droop Discharge Data Allergies Allergy/AdvReac Type Severity Reaction Status Date / Time chlorhexidine Allergy Severe Rash Verified 03/30/19 01:18 adhesive Allergy Intermediate TAPE- HIVES Verified 03/30/19 01:18 ceftriaxone Allergy Intermediate rash, Has Verified 03/30/19 01:18 tolerated cefepime and Zerbaxa Cipro Allergy Intermediate hives Verified 01/11/18 17:31 ciprofloxacin Allergy Intermediate hives Verified 03/30/19 01:18 imipenem Allergy Intermediate PT REPORTS Verified 03/30/19 01:18 ITCHING levofloxacin Allergy Intermediate rash,HEARD Verified 03/30/19 01:18 VOICES linezolid Allergy Intermediate rash Verified 03/30/19 01:18 nitrofurantoin Allergy Intermediate rash and Verified 03/30/19 01:18 hives trimethoprim Allergy Intermediate Hives Verified 03/30/19 01:18 vancomycin Allergy Intermediate rash Verified 03/26/19 23:27 amikacin Allergy Unknown PER DR Verified 03/26/19 23:27 JULIENNE,RXN WAS TO ZOSYN NOT AMKrash;hives Bactrim Allergy Unknown Hives Verified 01/11/18 17:31 sulfamethoxazole Allergy Unknown Hives Verified 03/26/19 23:27 buspirone AdvReac Severe HALLUCINATI Verified 03/26/19 23:27 ONS piperacillin AdvReac Intermediate SEVERE Verified 03/26/19 23:27 RASH, HIVES tazobactam AdvReac Intermediate SEVERE Verified 03/26/19 23:27 RASH, HIVES latex AdvReac Unknown Verified 03/26/19 23:27 Consultations 03/26/19 23:19 ED Decision to Admit Stat Hospital Course (1) Hypokalemia: Patient with hypokalemia, K = 2.4. Recent diarrheal illness which may account for potassium losses. Magnesium = 1.8 -Patient administered 10 mEq of potassium in the ER -We will give KCl 20 mEq x 3 runs through central line -Magnesium sulfate 2 g IV -Repeat BMP and mag with a.m. labs. Patient will most likely need additional potassium repletion Later in the day, electrolytes improved. Patient no longer having diarrhea. Patient is asking for discharge. Gave patient and mother script for repeat bmp in about 5 days. Mother is in agreement with discharge. (2) UTI (urinary tract infection): Patient with MRSA UTI from catheter urine specimen collected on 03/21. She was recently started on daptomycin 4 mg/kg IV, received first infusion yesterday afternoon. She follows with Dr. Sauceda from infectious disease. Presently she is afebrile, hemodynamically stable, no leukocytosis, no evidence of sepsis. Patient recently completed a course of tobramycin for UTI -Continue daptomycin 500 mg IV daily -Check CK level -Check weight x1 -Contact precautions for MRSA -? Suprapubic catheter exchange in setting of MRSA infection -Continue daily probiotic (3) Hypothyroidism: Chronic. Stable. TSH = 3.34 on 03/26/2019 -Continue Synthroid 88 mcg daily (4) Vitamin B12 deficiency: Chronic. -Continue B12 500 mg p.o. daily (5) Sleep apnea: Patient with nocturnal hypoxia, LIZBETH. She wears 2 L of nasal cannula at night -Continue nocturnal O2 supplementation (6) Intertrigo: Patient with mild intertrigo groin folds -Keep area clean and dry -Nystatin topical powder (7) Insomnia: Chronic. Stable. -Continue home medications, trazodone 150 mg p.o. nightly and Seroquel 50 mg p.o. nightly -Delirium prevention strategy (8) History of pulmonary embolism: Patient anticoagulated on Eliquis 5 mg p.o. twice daily. No active bleeding or falls -Continue Eliquis (9) Asthma: Patient denies cough, shortness of breath or wheeze. No respiratory distress. Adequate oxygenation on room air -Continue Advair 500/50 mcg twice daily -Patient has both albuterol HFA and Xopenex nebs as home medications. -Continue Zyrtec (10) Migraines: Patient with history of migraine. She has multiple medications listed on her home list for acute headache which include Reglan, DHE injection, ketamine nasal spray and Haldol as well Ajovy and Botox injections. Presently without migraine. -We will hold these abortive medications for now -Continue Topamax 200 mg p.o. every morning and 100 mg p.o. nightly -She takes mexiletine for FRIED as well - 300mg po TID, to be continued -Patient to follow-up at [facility] for headache clinic next week (11) Schizoaffective disorder: Chronic. Patient reports ongoing auditory hallucinations. Denies suicidal or homicidal ideations -Continue Seroquel -Continue brexiprazole (Rexulti) -Continue Venlafaxine at home dosage -Hydroxyzine as needed for anxiety (12) Bipolar 1 disorder: Chronic. Stable -Continue home medications as above (13) Anxiety: Chronic. Stable -Continue Venlafaxine -Hydroxyzine PRN Total Time Total Time Spent Total Time Spent (In Minutes): 32 Total Time Includes: Examination of the Patient, Discharge Planning and Medication Reconciliation Discharge Plan Discharge Items Patient Disposition: Home - Self-Care Reason For Visit: hypokalemia Discharge Diagnosis: hypokalemia Activity: Resume your previous activity Non-emergency contact: Primary Care Provider Call non-emergency contact if: you have any medication questions Follow-up/Referrals: Gela Boone MD [Primary Care Provider] - Diet: Regular Addtl Attending Provider Instructions: recommend checking PRP in 2-3 days Pending Studies at Discharge: No Stand-Alone Forms: My [employer], Smoking Cessation Medications and DC Order Prescriptions: New potassium chloride 20 mEq/15 mL liquid 10 meq PO BID Qty: 45 RF: 0 Continued Eliquis 5 mg tablet 5 mg PO BID Qty: 180 RF: 3 cetirizine [Zyrtec] 10 mg tablet 10 mg PO DAILY PRN (Reason: Allergies or Antibiotics) Qty: 60 RF: 5 fluticasone propion-salmeterol [Advair Diskus] 500-50 mcg/dose blister with device 1 inh INHALATION BID Qty: 60 RF: 5 levalbuterol HCl [Xopenex] 0.63 mg/3 mL solution for nebulization 0.63 mg INHALATION Q6H PRN (Reason: Shortness Of Breath) Qty: 36 RF: 1 acetaminophen 500 mg tablet 1,000 mg PO Q6H PRN (Reason: fever or pain) RF: 0 Hydrofera Blue 4 X 4 " bandage 1 ea TOP UD RF: 0 triamcinolone acetonide 0.1 % cream 1 appln topical TID PRN (Reason: Itching) RF: 0 nystatin-triamcinolone 100,000-0.1 unit/gram-% ointment 1 appln topical TID PRN (Reason: AFFECTED SKIN) Qty: 1 RF: 0 promethazine 12.5 mg tablet 12.5 mg PO Q6H PRN (Reason: allergy symptoms) Qty: 20 RF: 0 venlafaxine 150 mg capsule,extended release 24hr 150 mg PO QAM RF: 0 cyanocobalamin (vitamin B-12) 500 mcg Tablet 500 mcg PO QAM RF: 0 mexiletine 150 mg capsule 300 mg PO DAILY@0800,1200,2200 RF: 0 hyoscyamine sulfate [Levsin] 0.125 mg tablet 0.125 mg PO TIDM RF: 0 trazodone 150 mg tablet 150 mg PO HS RF: 0 metoclopramide HCl [Reglan] 10 mg tablet 10 mg PO BID MDD 2x/wk PRN (Reason: acute headaches) RF: 0 ketamine 100 mg/mL Solution 1 - 2 spray Intranasal Q15M MDD 20 PRN (Reason: Migraine Headache) RF: 0 Multi 27-800 mg-mcg Tablet 1 tab PO QDL RF: 0 Probiotic 3 billion cell capsule 3,000 mmu cells PO QDL RF: 0 Botox 100 unit Recon Soln 1 dose IM Q90D RF: 0 topiramate 100 mg Capsule,Sprinkle,Er 24hr 100 mg PO HS RF: 0 quetiapine 50 mg tablet 50 mg PO HS RF: 0 albuterol sulfate [ProAir HFA] 90 mcg/actuation HFA aerosol inhaler 2 puffs INH Q6 PRN (Reason: shortness of breath or wheezing) RF: 0 topiramate 200 mg Tablet 200 mg PO QAM RF: 0 nystatin 100,000 unit/gram Powder 1 applic TOPICAL BID PRN (Reason: Skin Irritation) RF: 0 polyethylene glycol 3350 [Miralax] 17 gram/dose Powder 17 g PO TID PRN (Reason: Constipation) RF: 0 venlafaxine 37.5 mg capsule,extended release 24hr 37.5 mg PO QAM RF: 0 fluocinonide 0.05 % ointment 1 appln TOP BID PRN (Reason: Itching) RF: 0 levothyroxine 88 mcg tablet 88 mcg PO DAILYBB RF: 0 pantoprazole 40 mg tablet,delayed release (DR/EC) 40 mg PO DAILY@0800,2200 RF: 0 montelukast 10 mg tablet 10 mg PO HS PRN (Reason: Allergy Symptoms) RF: 0 haloperidol 2 mg tablet 2 mg PO Q12 MDD 2x/wk PRN (Reason: PRN) RF: 0 Rexulti 2 mg tablet 4 mg PO QAM RF: 0 hydroxyzine HCl 25 mg tablet 25 mg PO QID PRN (Reason: Anxiety) RF: 0 Ajovy 225 mg/1.5 mL syringe 225 mg subcut MONTHLY RF: 0 ondansetron 8 mg tablet,disintegrating 8 mg PO TID PRN (Reason: Nausea) RF: 0 hydrocortisone 1 % cream 1 appln TOP BID PRN (Reason: rash) Qty: 14.2 RF: 0 Amitiza 24 mcg capsule 24 mcg PO BIDM RF: 0 Discharge Orders: Discharge Order (Routine); Ordered 03/27/19 Ordered By: Israel Gonzalez Admission Data Admit Date/Time: 03/27/19 00:13 Attending Provider: Israel Gonzalez Admit Provider: Dariana Jacobo Primary Care Provider: Gela Boone Other Interventions: Discharge Summary Assessment (RN) Last Done: 03/27/19 15:26 DC Date/Time DO NOT enter until pt leaves facility: 03/27/19 16:14
== END 2019-03-27 16:14 | disposition home or self-care (01) | DRG 641 ==
LOC: ED 20:58 → 2W 03-27 00:13 → SUATTDRO 03-27 00:13 → 2W 03-27 00:49

== ENCOUNTER 2019-05-11 13:59 | Inpatient (IN) ==
[2019-05-11] MEDS ORDERED: DiphenhydrAMINE HCL 50 MG/ML VIAL IV STA (14:24)
[2019-05-11] MEDS ORDERED: MoRPHine SULFATE 4 MG/ML 1 ML CARP\\VIAL IV STA (14:24)
[2019-05-11 14:53] LABS: Basophils # (auto) 0.03 K/uL (0-0.2); Basophils % (auto) 0.4 %; Eosinophils # (auto) 0.12 K/uL (0-0.5); Eosinophils % (auto) 1.4 %; Hematocrit (blood only) 35.6 % (37-47); Hemoglobin 11.3 g/dL (12.0-16.0); Immature Granulocytes # (auto) 0.02 K/uL (0.00-0.02); Immature Granulocytes % (auto) 0.2 %; Lymphocytes # (auto) 2.39 K/uL (1.2-3.4); Lymphocytes % (auto) 28.6 %; Mean Corpuscular Hemoglobin 28.5 pg (25-34); Mean Corpuscular Hgb Conc 31.7 g/dL (32-36); Mean Corpuscular Volume 89.7 fL (80-100); Mean Platelet Volume 10.3 fL (7.4-10.4); Monocytes # (auto) 1.11 K/uL (0.11-0.59); Monocytes % (auto) 13.3 %; Neutrophils % (auto) 56.1 %; Platelet Count 212 K/uL (130-400); RDW Coefficient of Variation 15.9 % (11.5-14.5); RDW Standard Deviation 51.9 fL (36.4-46.3); Red Blood Count 3.97 M/uL (4.2-5.4); White Blood Count 8.37 K/uL (4.8-10.8)
[2019-05-11 15:09] LABS: BUN Creatinine Ratio 20.6 (10-20); Blood Urea Nitrogen 19 mg/dl (7-18); Calcium 9.1 mg/dl (8.5-10.1); Carbon Dioxide 19 mmol/L (21-32); Chloride 115 mmol/L (98-107); Est GFR (African American) 98.1; Est GFR (Non-African American) 84.6; Glucose 116 mg/dl (70-99); Potassium 3.4 mmol/L (3.5-5.1); Sodium 140 mmol/L (136-145)
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
[2019-05-11] MEDS ORDERED: ONDANSETRON INJ 2 MG/ML 2 ML VIAL ONE (17:24)
[2019-05-11] MEDS ORDERED: ONDANSETRON INJ 2 MG/ML 2 ML VIAL IV STA (17:33)
[2019-05-11] MEDS ORDERED: BENZTROPINE MESYLATE 1 MG TAB PO PRN (17:52)
[2019-05-11] MEDS ORDERED: METOCLOPRAMIDE HCL 10 MG TABLET PO PRN (17:52)
[2019-05-11] MEDS ORDERED: CETIRIZINE HCL 10 MG TABLET PO PRN (17:52)
[2019-05-11] MEDS ORDERED: ACETAMINOPHEN 325 MG TAB PO PRN (17:52)
[2019-05-11] MEDS ORDERED: LEVALBUTEROL HCL 0.63 MG/3 ML NEB INH PRN (17:52)
[2019-05-11] MEDS ORDERED: NYSTATIN POWDER 15GM BTL EXT PRN (17:52)
[2019-05-11] MEDS ORDERED: NYSTATIN/TRIAMCIN OINT 15 GM TUBE EXT PRN (17:52)
[2019-05-11] MEDS ORDERED: POLYETHYLENE (MIRALAX) 17 GM PACK PO PRN (17:52)
[2019-05-11] MEDS ORDERED: MONTELUKAST SODIUM 10 MG TABLET PO PRN (17:52)
[2019-05-11] MEDS ORDERED: ALBUTEROL HFA 8 GM INHALER INH PRN (18:08)
[2019-05-11] MEDS ORDERED: DiphenhydrAMINE HCL 50 MG/ML VIAL IV PRN (18:20)
[2019-05-11] MEDS ORDERED: haloperidoL 1 MG TAB PO PRN (18:26)
[2019-05-11] MEDS ORDERED: HYDROmorphone INJ 1 MG/ML SYRINGE IV STA (18:34)
[2019-05-11] MEDS ORDERED: DiphenhydrAMINE HCL 50 MG/ML VIAL IV ONE (18:45)
[2019-05-11] MEDS: NSS + 20MEQ KCL 20 MEQ/1,000 ML BAG IV SCH (19:37)
[2019-05-11] MEDS: ONDANSETRON 8MG OD TAB PO PRN (19:41)
[2019-05-11] MEDS ORDERED: FOAM DRESSING TOP SCH (20:00)
[2019-05-11] MEDS ORDERED: HEPARIN SOD 5,000 UNIT/0.5 ML VIAL SQ SCH (21:00)
[2019-05-11] MEDS ORDERED: QUETIAPINE FUMARATE 25 MG TABLET PO SCH (21:00)
[2019-05-11] MEDS: FLUTICASONE/SALMETEROL (ADVAIR) 500/50 INH 14 PUFF INH SCH (21:03)
[2019-05-11] MEDS: TRAZODONE HCL 100 MG TAB PO SCH (21:04)
[2019-05-11] MEDS: FAMOTIDINE 40 MG TABLET PO SCH (21:05)
[2019-05-11] MEDS: PANTOprazole 40 MG TAB PO SCH (21:05)
[2019-05-11] MEDS: TOPIRAMATE XR PO SCH (21:07)
[2019-05-11] MEDS: LACTOBACILLUS ACIDOPHILUS (FLORANEX) TAB PO SCH (21:07)
[2019-05-11] MEDS: MEXILETINE HCL 150 MG CAPSULE PO SCH (21:08)
[2019-05-11] MEDS: HYOSCYAMINE SULFATE 0.125 MG TAB PO SCH (21:08)
[2019-05-11] MEDS: APIXABAN 5 MG TABLET PO SCH (21:08)
[2019-05-11] MEDS: TRAZODONE HCL 50 MG TAB PO SCH (21:09)
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
[2019-05-11] MEDS: DiphenhydrAMINE HCL 50 MG/ML VIAL IV SCH (23:48)
[2019-05-12] MEDS ORDERED: HEPARIN 100 UNIT/ML 5ML FLUSH FLUSH PRN (00:44)
[2019-05-12] MEDS: HYDROmorphone INJ 0.5 MG/0.5 ML SYR IV PRN (01:05)
[2019-05-12] MEDS: PROMETHAZINE HCL 25 MG TAB PO PRN ×3 (01:05→23:36)
[2019-05-12 05:56] LABS: Basophils # (auto) 0.04 K/uL (0-0.2); Basophils % (auto) 0.6 %; Eosinophils # (auto) 0.22 K/uL (0-0.5); Eosinophils % (auto) 3.3 %; Hematocrit (blood only) 33.7 % (37-47); Hemoglobin 10.4 g/dL (12.0-16.0); Immature Granulocytes # (auto) 0.02 K/uL (0.00-0.02); Immature Granulocytes % (auto) 0.3 %; Lymphocytes # (auto) 2.42 K/uL (1.2-3.4); Lymphocytes % (auto) 36.3 %; Mean Corpuscular Hemoglobin 27.9 pg (25-34); Mean Corpuscular Hgb Conc 30.9 g/dL (32-36); Mean Corpuscular Volume 90.3 fL (80-100); Mean Platelet Volume 10.1 fL (7.4-10.4); Monocytes # (auto) 0.69 K/uL (0.11-0.59); Monocytes % (auto) 10.4 %; Neutrophils # (auto) 3.27 K/uL (1.4-6.5); Neutrophils % (auto) 49.1 %; Platelet Count 172 K/uL (130-400); RDW Coefficient of Variation 16.1 % (11.5-14.5); Red Blood Count 3.73 M/uL (4.2-5.4); White Blood Count 6.66 K/uL (4.8-10.8)
[2019-05-12] MEDS: ONDANSETRON 8MG OD TAB PO PRN (06:05)
[2019-05-12] MEDS: LEVOTHYROXINE SODIUM 88 MCG TABLET PO SCH (06:06)
[2019-05-12 06:26] LABS: BUN Creatinine Ratio 20.8 (10-20); Calcium 8.5 mg/dl (8.5-10.1); Creatinine Clr Calc Pharmacy 91.5 ml/min; Est GFR (African American) 108.1; Est GFR (Non-African American) 93.3; Potassium 3.3 mmol/L (3.5-5.1)
[2019-05-12] MEDS: NSS + 20MEQ KCL 20 MEQ/1,000 ML BAG IV SCH ×2 (07:59→22:13)
[2019-05-12] MEDS: DiphenhydrAMINE HCL 50 MG/ML VIAL IV SCH ×3 (08:00→23:35)
[2019-05-12] MEDS: PANTOprazole 40 MG TAB PO SCH ×2 (08:01→21:17)
[2019-05-12] MEDS: LACTOBACILLUS ACIDOPHILUS (FLORANEX) TAB PO SCH ×4 (08:01→21:13)
[2019-05-12] MEDS: MEXILETINE HCL 150 MG CAPSULE PO SCH ×3 (08:02→21:15)
[2019-05-12] MEDS: HYOSCYAMINE SULFATE 0.125 MG TAB PO SCH ×3 (08:02→21:15)
[2019-05-12] MEDS: VENLAFAXINE HCL XR 150 MG CAPXR PO SCH (08:04)
[2019-05-12] MEDS: VENLAFAXINE HCL XR 37.5 MG CAPXR PO SCH (08:04)
[2019-05-12] MEDS: BREXPIPRAZOLE PO SCH (08:05)
[2019-05-12] MEDS: CYANOCOBALAMIN 500 MCG TABLET (VITAMIN B-12) PO SCH (08:05)
[2019-05-12] MEDS: TOPIRAMATE XR PO SCH ×2 (08:06→21:19)
[2019-05-12] MEDS: VALPROATE SOD 500 MG in DEXTROSE 5% 50 ML IV SCH (08:07)
[2019-05-12] MEDS: FLUTICASONE/SALMETEROL (ADVAIR) 500/50 INH 14 PUFF INH SCH ×2 (08:08→21:17)
[2019-05-12] MEDS ORDERED: VALPROATE SOD 500 MG/5 ML IV SCH (09:00)
[2019-05-12] MEDS: APIXABAN 5 MG TABLET PO SCH ×2 (10:07→21:15)
[2019-05-12] MEDS ORDERED: PRENATAL VITAMIN 1 TAB PO SCH (11:30)
[2019-05-12] MEDS ORDERED: Nursing to Pharmacy Communication SCH (14:53)
--- NOTE | 2019-05-12 16:11 | Hospitalist Progress Note ---
Date of Service May 12, 2019 Assessment & Plan (1) Abscess of labia: Patient recently in the emergency department 05/08/2019 and the abscess was drained by Dr. jean baptiste Patient failed antibiotic therapy as an outpatient Will be brought in his admitted for IV antibiotics using ceftazidime and Daptomycin Due to MRSA and Pseudomonas, plan for ID consult No leukocytosis or lactic acidosis for two days Wound care nurse consulted, likely plan for wound provider to see this week vitals stable, no signs of sepsis (2) Chronic migraine without aura, intractable, without status migrainosus: Patient follows with clinic in [place] and was there 05/10/19 for injections including Solu-Medrol Patient was to take Solu-Medrol 40 mg, held due to infection Continue to treat headaches supportively Emgality given on 05/12 which is a once a month medication (3) Neurogenic bladder: Follows with Dr. Mariano Washington from urology Etiology for neurogenic bladder is spina bifida Patient has indwelling suprapubic catheter, exchanged by her mother on 05/12 Will flush the catheter twice daily, Ricacidin for 30 minutes every evening Strict I's and O's (4) Schizoaffective disorder: Patient is very pleasant and stable at this time Continue usual home medications Follow expectantly (5) UTI (urinary tract infection): Indwelling suprapubic catheter Patient started on ceftazidime which should cover urologic pathology Follow strict I's and O's (6) Spina bifida: Sling and a Jojo lift use at home Follow per protocol (7) History of pulmonary embolism: No acute sequela Patient is chronically anticoagulated with Eliquis Follow clinically (8) DVT prophylaxis: Chronically anticoagulated with Eliquis Chronic paraplegia secondary to spina bifida No indication for mechanical prophylaxis Please refer to Dr. Vazquez's addendum for further recommendations. (9) Insomnia: will increase Seroquel to 100mg HS Subjective patient c/o anxiety, did not sleep very well due to pain and anxiety asking if someone could stay with her at night, says she gets scared her mother at the bedside, discussed exchanging catheter today since it is due discussed using the Ricacidin for irrigating bladder every evening will give a dose of Emgality today for migraine FRIED since she is due labs reviewed, stable she is eating well c/o pain and she wants a sleep aide this evening Review of Systems Review of Systems: All systems reviewed & are unremarkable except as noted in HPI & below Physical Exam Constitutional: well nourished and + morbidly obese; not ill appearing, not in distress and not diaphoretic Eyes: PERRL, conjunctivae normal, anicteric sclerae ENMT: external ear and nose normal, oropharynx normal Neck: trachea midline, no thyromegaly Respiratory: normal respiratory effort, lungs clear to auscultation (decreased in bases) Cardiovascular: RRR, no murmur, no edema Gastrointestinal (Abdomen): normal bowel sounds, soft, nontender, no hepatosplenomegaly Musculoskeletal: no cyanosis or clubbing, 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) Skin: no rashes, warm and dry Neurologic: patellar DTR's 2+ bilat, sensation intact and PERRL, EOMI, accommodation nl, no face palsy, no dysarthria Psychiatric: Orientation: alert and oriented x 3 Affect: + anxious affect Mood: + anxious mood Lymphatic: no cervical or axillary lymphadenopathy Results & Data Vital Signs (Past 12 Hours) Vital Signs Temp Pulse Resp BP Pulse Ox 05/12/19 15:12 36.7 C 96 H 20 130/74 94 Laboratory Results Laboratory Results - last 24 hr 05/12/19 05/12/19 05:42 05:42 WBC 6.66 RBC 3.73 L Hgb 10.4 L Hct 33.7 L MCV 90.3 MCH 27.9 MCHC 30.9 L RDW Std Deviation 53.0 H RDW Coeff of Neda 16.1 H Plt Count 172 MPV 10.1 Immature Gran % (Auto) 0.3 Neut % (Auto) 49.1 Lymph % (Auto) 36.3 [place] % (Auto) 10.4 Eos % (Auto) 3.3 Baso % (Auto) 0.6 Immature Gran # (Auto) 0.02 Neut # (Auto) 3.27 Lymph # (Auto) 2.42 [place] # (Auto) 0.69 H Eos # (Auto) 0.22 Baso # (Auto) 0.04 Sodium 141 Potassium 3.3 L Chloride 114 H Carbon Dioxide 20 L Anion Gap 7.0 BUN 17 Creatinine 0.83 Est Cr Clr Drug Dosing 91.5 Est GFR ( Amer) 108.1 Est GFR (Non-Af Amer) 93.3 BUN/Creatinine Ratio 20.8 H Glucose 123 H Calcium 8.5 PG Care Time/CCT Total # of Minutes Spent Total Time Spent with Patient: Total time spent is greater than 50% in coordination of care (as documented) at patient's floor/unit and/or counseling patient: (1) UTI (urinary tract infection) Hematuria presence: without hematuria Urinary tract infection type: site unspecified Qualified Code(s): N39.0 - Urinary tract infection, site not specified (2) Schizoaffective disorder Schizoaffective disorder type: bipolar Qualified Code(s): F25.0 - Schizoaffective disorder, bipolar type (3) Spina bifida Presence of hydrocephalus: with hydrocephalus Spinal region: unspecified Qualified Code(s): Q05.4 - Unspecified spina bifida with hydrocephalus
[2019-05-12] MEDS ORDERED: EMGALITY SC ONE (16:30)
[2019-05-12] MEDS: DAPTOmycin 300 MG in SYRINGE 0 ML IV SCH (17:46)
[2019-05-12] MEDS: POLYETHYLENE (MIRALAX) 17 GM PACK PO SCH (21:13)
[2019-05-12] MEDS: FAMOTIDINE 40 MG TABLET PO SCH (21:14)
[2019-05-12] MEDS: QUETIAPINE FUMARATE 100 MG TABLET PO SCH (21:14)
[2019-05-12] MEDS: TRAZODONE HCL 100 MG TAB PO SCH (21:17)
[2019-05-12] MEDS: TRAZODONE HCL 50 MG TAB PO SCH (21:18)
[2019-05-12] MEDS ORDERED: LORazepam 1 MG/2 ML VIAL IV PRN (22:50)
[2019-05-13] MEDS: ONDANSETRON 8MG OD TAB PO PRN ×3 (05:48→20:36)
[2019-05-13] MEDS: HYDROmorphone INJ 0.5 MG/0.5 ML SYR IV PRN ×2 (05:48→19:23)
[2019-05-13] MEDS: LEVOTHYROXINE SODIUM 88 MCG TABLET PO SCH (05:49)
[2019-05-13 06:10] LABS: Basophils # (auto) 0.03 K/uL (0-0.2); Basophils % (auto) 0.5 %; Eosinophils # (auto) 0.27 K/uL (0-0.5); Eosinophils % (auto) 4.8 %; Hematocrit (blood only) 33.1 % (37-47); Hemoglobin 10.3 g/dL (12.0-16.0); Immature Granulocytes # (auto) 0.03 K/uL (0.00-0.02); Immature Granulocytes % (auto) 0.5 %; Lymphocytes # (auto) 2.19 K/uL (1.2-3.4); Lymphocytes % (auto) 38.7 %; Mean Corpuscular Hgb Conc 31.1 g/dL (32-36); Mean Corpuscular Volume 89.9 fL (80-100); Mean Platelet Volume 10.1 fL (7.4-10.4); Monocytes # (auto) 0.59 K/uL (0.11-0.59); Monocytes % (auto) 10.4 %; Neutrophils # (auto) 2.55 K/uL (1.4-6.5); Neutrophils % (auto) 45.1 %; Platelet Count 191 K/uL (130-400); RDW Coefficient of Variation 16.2 % (11.5-14.5); RDW Standard Deviation 52.5 fL (36.4-46.3); Red Blood Count 3.68 M/uL (4.2-5.4); White Blood Count 5.66 K/uL (4.8-10.8)
[2019-05-13 06:37] LABS: BUN Creatinine Ratio 17.8 (10-20); Calcium 8.8 mg/dl (8.5-10.1); Creatinine Clr Calc Pharmacy 97.4 ml/min; Est GFR (African American) 116.6; Est GFR (Non-African American) 100.6; Potassium 3.3 mmol/L (3.5-5.1)
[2019-05-13] MEDS: CYANOCOBALAMIN 500 MCG TABLET (VITAMIN B-12) PO SCH (07:55)
[2019-05-13] MEDS: APIXABAN 5 MG TABLET PO SCH ×2 (07:56→20:25)
[2019-05-13] MEDS: LACTOBACILLUS ACIDOPHILUS (FLORANEX) TAB PO SCH ×4 (07:56→20:24)
[2019-05-13] MEDS: POLYETHYLENE (MIRALAX) 17 GM PACK PO SCH ×2 (07:56→20:23)
[2019-05-13] MEDS: VENLAFAXINE HCL XR 37.5 MG CAPXR PO SCH (07:57)
[2019-05-13] MEDS: DiphenhydrAMINE HCL 50 MG/ML VIAL IV SCH ×3 (07:57→23:42)
[2019-05-13] MEDS: PANTOprazole 40 MG TAB PO SCH ×2 (07:57→20:25)
[2019-05-13] MEDS: FLUTICASONE/SALMETEROL (ADVAIR) 500/50 INH 14 PUFF INH SCH ×2 (07:58→20:21)
[2019-05-13] MEDS: MEXILETINE HCL 150 MG CAPSULE PO SCH ×3 (07:58→20:23)
[2019-05-13] MEDS: TOPIRAMATE XR PO SCH ×2 (07:58→20:26)
[2019-05-13] MEDS: HYOSCYAMINE SULFATE 0.125 MG TAB PO SCH ×3 (07:58→20:26)
[2019-05-13] MEDS: BREXPIPRAZOLE PO SCH (07:59)
[2019-05-13] MEDS: VENLAFAXINE HCL XR 150 MG CAPXR PO SCH (08:02)
[2019-05-13] MEDS: PRENATAL GUMMIES PO SCH (08:04)
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
[2019-05-13] MEDS: VALPROATE SOD 500 MG in DEXTROSE 5% 50 ML IV SCH (09:03)
[2019-05-13] MEDS: NSS + 20MEQ KCL 20 MEQ/1,000 ML BAG IV SCH ×2 (09:03→23:46)
[2019-05-13] MEDS: PROMETHAZINE HCL 25 MG TAB PO PRN (11:09)
[2019-05-13] MEDS: DAPTOmycin 300 MG in SYRINGE 0 ML IV SCH (16:45)
[2019-05-13] MEDS: LORazepam 1 MG/2 ML VIAL IV PRN (20:12)
[2019-05-13] MEDS: TRAZODONE HCL 50 MG TAB PO SCH (20:22)
[2019-05-13] MEDS: QUETIAPINE FUMARATE 100 MG TABLET PO SCH (20:24)
[2019-05-13] MEDS: TRAZODONE HCL 100 MG TAB PO SCH (20:25)
[2019-05-13] MEDS: FAMOTIDINE 40 MG TABLET PO SCH (20:25)
--- NOTE | 2019-05-13 23:18 | Hospitalist Progress Note ---
Date of Service May 13, 2019 Assessment & Plan (1) Abscess of labia: Patient recently in the emergency department 05/08/2019 and the abscess was drained by Dr. jean baptiste Patient failed antibiotic therapy as an outpatient continue on ceftazidime and Daptomycin Due to MRSA and Pseudomonas, plan for ID consult on 05/14 No leukocytosis or lactic acidosis for three days Wound care nurse consulted, likely plan for wound provider to see this week vitals stable, no signs of sepsis (2) Chronic migraine without aura, intractable, without status migrainosus: Patient follows with clinic in [place] and was there 05/10/19 for injections including Solu-Medrol Patient was to take Solu-Medrol 40 mg, held due to infection Continue to treat headaches supportively Emgality given on 05/12 which is a once a month medication (3) Neurogenic bladder: Follows with Dr. Mariano Washington from urology Etiology for neurogenic bladder is spina bifida Patient has indwelling suprapubic catheter, exchanged by her mother on 05/12 Will flush the catheter twice daily, Ricacidin for 30 minutes every evening Strict I's and O's (4) Schizoaffective disorder: Patient is very pleasant and stable at this time Continue usual home medications Follow expectantly (5) UTI (urinary tract infection): Indwelling suprapubic catheter Patient started on ceftazidime which should cover urologic pathology Follow strict I's and O's (6) Spina bifida: Sling and a Jojo lift use at home Follow per protocol (7) History of pulmonary embolism: No acute sequela Patient is chronically anticoagulated with Eliquis Follow clinically (8) DVT prophylaxis: Chronically anticoagulated with Eliquis Chronic paraplegia secondary to spina bifida No indication for mechanical prophylaxis Please refer to Dr. Vazquez's addendum for further recommendations. (9) Insomnia: will increase Seroquel to 100mg HS (10) Suicidal ideation: patient hid her knife and fork in bedding with plan to harm herself will be on one to one, suicide precautions with finger foods family at the bedside most of the day will ask psychiatry to see on 05/14 Subjective patient hid her knife and fork in her bedsheets and when they were discovered she said she wanted to harm herself she was changed to finger food diet, family was with her she admits to depression, she is miserable, no quality of life, in the hospital frequently with infections has had a difficult life with complications from her spina bifida vitals stable reviewed labs, K low, WBC normal appreciate wound care provider plan for debridement patient does report that she slept better the night prior with increased dose of Seroquel Review of Systems Review of Systems: All systems reviewed & are unremarkable except as noted in HPI & below Constitutional: no fever, no chills, no sweats and no weakness Respiratory: no cough and no dyspnea Cardiovascular: no chest pain Psychiatric: + depression, + hopelessness, + suicidal ideation and + anxiety Physical Exam Constitutional: well nourished and + morbidly obese; not ill appearing, not in distress and not diaphoretic Eyes: PERRL, conjunctivae normal, anicteric sclerae ENMT: external ear and nose normal, oropharynx normal Neck: trachea midline, no thyromegaly Respiratory: normal respiratory effort, lungs clear to auscultation (decreased in bases) Cardiovascular: RRR, no murmur, no edema Gastrointestinal (Abdomen): normal bowel sounds, soft, nontender, no hepatosplenomegaly Musculoskeletal: no cyanosis or clubbing, 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) Skin: no rashes, warm and dry Neurologic: patellar DTR's 2+ bilat, sensation intact and PERRL, EOMI, accommodation nl, no face palsy, no dysarthria Psychiatric: Orientation: alert and oriented x 3 Affect: + anxious affect Mood: + anxious mood Lymphatic: no cervical or axillary lymphadenopathy Results & Data Vital Signs (Past 12 Hours) Vital Signs Temp Pulse Resp BP Pulse Ox 05/13/19 15:07 36.5 C 94 H 19 101/67 93 Laboratory Results Laboratory Results - last 24 hr 05/13/19 05/13/19 05:48 05:48 WBC 5.66 RBC 3.68 L Hgb 10.3 L Hct 33.1 L MCV 89.9 MCH 28.0 MCHC 31.1 L RDW Std Deviation 52.5 H RDW Coeff of Neda 16.2 H Plt Count 191 MPV 10.1 Immature Gran % (Auto) 0.5 Neut % (Auto) 45.1 Lymph % (Auto) 38.7 [place] % (Auto) 10.4 Eos % (Auto) 4.8 Baso % (Auto) 0.5 Immature Gran # (Auto) 0.03 H Neut # (Auto) 2.55 Lymph # (Auto) 2.19 [place] # (Auto) 0.59 Eos # (Auto) 0.27 Baso # (Auto) 0.03 Sodium 141 Potassium 3.3 L Chloride 112 H Carbon Dioxide 22 Anion Gap 7.0 BUN 14 Creatinine 0.78 Est Cr Clr Drug Dosing 97.4 Est GFR ( Amer) 116.6 Est GFR (Non-Af Amer) 100.6 BUN/Creatinine Ratio 17.8 Glucose 123 H Calcium 8.8 Medications Administered Current Inpatient Medications Acetaminophen (Tylenol) 650 mg PO Q4H PRN PRN Reason: pain/fever Stop: 06/10/19 17:51 Albuterol (Ventolin Hfa) 2 puffs INH Q6 PRN PRN Reason: Shortness Of Breath Stop: 06/10/19 18:07 Apixaban (Eliquis) 5 mg PO BID [facility] Stop: 06/10/19 20:59 Last Admin: 05/13/19 20:25 Dose: 5 mg Documented by: Benztropine Mesylate (Cogentin) 1 mg PO TID PRN PRN Reason: Migraine Headache Stop: 06/10/19 17:51 Cetirizine HCl (Zyrtec) 10 mg PO DAILY PRN PRN Reason: Allergies or Antibiotics Stop: 06/10/19 17:51 Last Admin: 05/12/19 08:04 Dose: 10 mg Documented by: Cyanocobalamin (Vitamin B-12) 1,000 mcg PO QAM [facility] Stop: 06/11/19 08:59 Last Admin: 05/13/19 07:55 Dose: 1,000 mcg Documented by: Diphenhydramine HCl (Benadryl) 25 mg IV Q8H [facility] Stop: 06/10/19 23:29 Last Admin: 05/13/19 16:07 Dose: 25 mg Documented by: Famotidine (Pepcid) 40 mg PO HS [facility] Stop: 06/10/19 20:59 Last Admin: 05/13/19 20:25 Dose: Not Given Documented by: Haloperidol (Haldol) 2.5 mg PO Q12 PRN PRN Reason: PRN Stop: 06/10/19 18:25 Last Admin: 05/11/19 22:29 Dose: 2.5 mg Documented by: Heparin Sodium (Porcine) (Heparin Sod 100 Unit/Ml Flush) 5 ml FLUSH PRN PRN PRN Reason: Flush Stop: 06/11/19 00:44 Hydromorphone HCl (Dilaudid) 0.5 mg IV Q6 PRN PRN Reason: Pain Stop: 05/26/19 00:00 Last Admin: 05/13/19 19:23 Dose: 0.5 mg Documented by: Hydroxyzine HCl (Vistaril) 25 mg PO QID [facility] Stop: 06/11/19 16:59 Last Admin: 05/13/19 20:24 Dose: 25 mg Documented by: Hyoscyamine (Levsin) 0.125 mg PO TID [facility] Stop: 06/10/19 20:59 Last Admin: 05/13/19 20:26 Dose: 0.125 mg Documented by: Potassium Chloride/Sodium Chloride (Normal Saline W/20 Meq Kcl) 20 meq in 1,000 mls @ 80 mls/hr IV .[id number] [facility] Stop: 06/10/19 18:59 Last Admin: 05/13/19 09:03 Dose: 80 mls/hr Documented by: Ceftazidime 2,000 mg/ Dextrose 60 mls @ 100 mls/hr IV Q8H [facility]; Protocol Stop: 05/22/19 00:00 Last Infusion: 05/13/19 18:31 Dose: Infused Documented by: Valproic Acid 500 mg/ Dextrose 55 mls @ 55 mls/hr IV Q24H [facility] Stop: 06/11/19 07:59 Last Infusion: 05/13/19 10:34 Dose: Infused Documented by: Daptomycin 300 mg/ Syringe 6 mls @ 3 mls/min IV Q24H [facility]; Protocol Stop: 05/22/19 15:59 Last Admin: 05/13/19 16:45 Dose: 3 mls/min Documented by: Lorazepam (Ativan) 1 mg in 2 mls @ 2 mls/min IV Q4H PRN PRN Reason: Anxiety/Agitation Stop: 06/12/19 19:14 Last Admin: 05/13/19 20:12 Dose: 2 mls/min Documented by: Lactobacillus Acidophilus (Floranex) 4 tab PO QID [facility] Stop: 06/10/19 20:59 Last Admin: 05/13/19 20:24 Dose: 4 tab Documented by: Levalbuterol HCl (Xopenex 0.63 Mg/3 Ml Neb) 0.63 mg INH Q6H PRN PRN Reason: Shortness Of Breath Stop: 06/10/19 17:51 Levothyroxine Sodium (Synthroid) 88 mcg PO DAILYBB [facility] Stop: 06/11/19 06:29 Last Admin: 05/13/19 05:49 Dose: 88 mcg Documented by: Metoclopramide HCl (Reglan) 10 mg PO BID PRN PRN Reason: acute headaches Stop: 06/10/19 17:51 Last Admin: 05/12/19 06:05 Dose: 10 mg Documented by: Mexiletine HCl (Mexitil) 300 mg PO 0800,1200,2100 [facility] Stop: 06/10/19 20:59 Last Admin: 05/13/19 20:23 Dose: 300 mg Documented by: Montelukast Sodium (Singulair) 10 mg PO HS PRN PRN Reason: Allergy Symptoms Stop: 06/10/19 17:51 Last Admin: 05/12/19 21:16 Dose: 10 mg Documented by: Brexpiprazole: Non- Formulary Patient's Own Med 1 ea PO QAM [facility] Stop: 06/11/19 08:59 Last Admin: 05/13/19 07:59 Dose: 4 mg Documented by: Hydrofera Dressing: Non-Formulary Patient's Own Med 1 ea TOP UD [facility] Stop: 06/10/19 19:59 Gummies~Non -Formulary Patient's Own Med 1 ea PO QDL [facility] Stop: 06/12/19 11:29 Last Admin: 05/13/19 08:04 Dose: 1 ea Documented by: Nystatin (Mycostatin) 1 appln EXT TID PRN PRN Reason: Skin Irritation Stop: 06/10/19 17:51 Nystatin/Triamcinolone Acetonide (Mycolog Ii) 1 appln EXT TID PRN PRN Reason: AFFECTED SKIN Stop: 06/10/19 17:51 Ondansetron HCl (Zofran Odt) 8 mg PO Q6H PRN PRN Reason: Nausea Stop: 06/10/19 17:51 Last Admin: 05/13/19 20:36 Dose: 8 mg Documented by: Pantoprazole Sodium (Protonix) 40 mg PO BID@0730,2100 [facility] Stop: 06/10/19 20:59 Last Admin: 05/13/19 20:25 Dose: 40 mg Documented by: Polyethylene Glycol (Miralax Powder Packet) 17 gm PO BID [facility] Stop: 06/11/19 20:59 Last Admin: 05/13/19 20:23 Dose: 17 gm Documented by: Promethazine HCl (Phenergan) 12.5 mg PO Q6H PRN PRN Reason: Nausea Stop: 06/10/19 17:51 Last Admin: 05/13/19 11:09 Dose: 12.5 mg Documented by: Quetiapine Fumarate (Seroquel) 100 mg PO [facility] Stop: 06/11/19 20:59 Last Admin: 05/13/19 20:24 Dose: 100 mg Documented by: Fluticasone/Salmeterol (Advair Diskus 500/50) 1 puffs INH BID [facility] Stop: 06/10/19 20:59 Last Admin: 05/13/19 20:21 Dose: 1 puffs Documented by: Topiramate (Qudexy Xr) 2 ea PO BID [facility] Stop: 06/10/19 20:59 Last Admin: 05/13/19 20:26 Dose: 2 ea Documented by: Trazodone HCl (Desyrel) 50 mg PO [facility] Stop: 06/10/19 20:59 Last Admin: 05/13/19 20:22 Dose: 50 mg Documented by: Trazodone HCl (Desyrel) 100 mg PO [facility] Stop: 06/10/19 20:59 Last Admin: 05/13/19 20:25 Dose: 100 mg Documented by: Venlafaxine HCl (Effexor Extended Release) 37.5 mg PO QAM [facility] Stop: 06/11/19 08:59 Last Admin: 05/13/19 07:57 Dose: 37.5 mg Documented by: Venlafaxine HCl (Effexor Extended Release) 150 mg PO QAM [facility] Stop: 06/11/19 08:59 Last Admin: 05/13/19 08:02 Dose: 150 mg Documented by: PG Care Time/CCT Total # of Minutes Spent Total Time Spent with Patient: Total time spent is greater than 50% in coordination of care (as documented) at patient's floor/unit and/or counseling patient: (1) UTI (urinary tract infection) Hematuria presence: without hematuria Urinary tract infection type: site unspecified Qualified Code(s): N39.0 - Urinary tract infection, site not specified (2) Schizoaffective disorder Schizoaffective disorder type: bipolar Qualified Code(s): F25.0 - Schizoaffective disorder, bipolar type (3) Spina bifida Presence of hydrocephalus: with hydrocephalus Spinal region: unspecified Qualified Code(s): Q05.4 - Unspecified spina bifida with hydrocephalus
[2019-05-14] MEDS: LORazepam 1 MG/2 ML VIAL IV PRN ×3 (00:48→21:45)
[2019-05-14] MEDS: PROMETHAZINE HCL 25 MG TAB PO PRN (00:48)
[2019-05-14] MEDS: HYDROmorphone INJ 0.5 MG/0.5 ML SYR IV PRN (01:29)
[2019-05-14] MEDS: ONDANSETRON 8MG OD TAB PO PRN (04:47)
[2019-05-14] MEDS: LEVOTHYROXINE SODIUM 88 MCG TABLET PO SCH (06:28)
[2019-05-14] MEDS: VALPROATE SOD 500 MG in DEXTROSE 5% 50 ML IV SCH (08:01)
[2019-05-14] MEDS: DiphenhydrAMINE HCL 50 MG/ML VIAL IV SCH ×3 (08:02→23:55)
[2019-05-14] MEDS: VENLAFAXINE HCL XR 150 MG CAPXR PO SCH (08:02)
[2019-05-14] MEDS: APIXABAN 5 MG TABLET PO SCH ×2 (08:02→21:46)
[2019-05-14] MEDS: HYOSCYAMINE SULFATE 0.125 MG TAB PO SCH ×3 (08:03→21:45)
[2019-05-14] MEDS: CYANOCOBALAMIN 500 MCG TABLET (VITAMIN B-12) PO SCH (08:03)
[2019-05-14] MEDS: PANTOprazole 40 MG TAB PO SCH ×2 (08:03→21:48)
[2019-05-14] MEDS: VENLAFAXINE HCL XR 37.5 MG CAPXR PO SCH (08:03)
[2019-05-14] MEDS: LACTOBACILLUS ACIDOPHILUS (FLORANEX) TAB PO SCH ×4 (08:04→21:47)
[2019-05-14] MEDS: MEXILETINE HCL 150 MG CAPSULE PO SCH ×3 (08:04→21:46)
[2019-05-14] MEDS: FLUTICASONE/SALMETEROL (ADVAIR) 500/50 INH 14 PUFF INH SCH ×2 (08:06→21:49)
[2019-05-14] MEDS: BREXPIPRAZOLE PO SCH (08:07)
[2019-05-14] MEDS: TOPIRAMATE XR PO SCH ×2 (08:07→21:49)
[2019-05-14] MEDS: PRENATAL GUMMIES PO SCH (08:11)
[2019-05-14] MEDS: POLYETHYLENE (MIRALAX) 17 GM PACK PO SCH ×3 (08:12→21:46)
[2019-05-14 08:14] LABS: Basophils # (auto) 0.05 K/uL (0-0.2); Basophils % (auto) 0.7 %; Eosinophils # (auto) 0.37 K/uL (0-0.5); Eosinophils % (auto) 5.4 %; Hematocrit (blood only) 33.5 % (37-47); Hemoglobin 10.6 g/dL (12.0-16.0); Immature Granulocytes # (auto) 0.02 K/uL (0.00-0.02); Immature Granulocytes % (auto) 0.3 %; Lymphocytes # (auto) 2.19 K/uL (1.2-3.4); Mean Corpuscular Hemoglobin 28.4 pg (25-34); Mean Corpuscular Hgb Conc 31.6 g/dL (32-36); Mean Corpuscular Volume 89.8 fL (80-100); Mean Platelet Volume 10.3 fL (7.4-10.4); Monocytes # (auto) 0.79 K/uL (0.11-0.59); Monocytes % (auto) 11.5 %; Neutrophils # (auto) 3.43 K/uL (1.4-6.5); Neutrophils % (auto) 50.1 %; Platelet Count 206 K/uL (130-400); RDW Coefficient of Variation 16.4 % (11.5-14.5); RDW Standard Deviation 53.7 fL (36.4-46.3); Red Blood Count 3.73 M/uL (4.2-5.4); White Blood Count 6.85 K/uL (4.8-10.8)
[2019-05-14 08:44] LABS: BUN Creatinine Ratio 15.5 (10-20); Calcium 8.5 mg/dl (8.5-10.1); Creatinine Clr Calc Pharmacy 98.6 ml/min; Est GFR (African American) 118.4; Est GFR (Non-African American) 102.2; Potassium 3.3 mmol/L (3.5-5.1)
[2019-05-14] MEDS: NSS + 20MEQ KCL 20 MEQ/1,000 ML BAG IV SCH ×2 (10:24→22:37)
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
--- NOTE | 2019-05-14 15:49 | Psychiatric Consultation ---
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 05/13/19 07:57 Dose: 40 mg Documented by: [id number] Admin: 05/12/19 21:17 Dose: 40 mg Documented by: [id number] Admin: 05/12/19 08:01 Dose: 40 mg Documented by: [id number] Admin: 05/11/19 21:05 Dose: 40 mg Documented by: [id number] Polyethylene Glycol (Miralax Powder Packet) 17 gm PO BID [facility] Stop: 06/11/19 20:59 Last Admin: 05/14/19 10:24 Dose: 17 gm Documented by: [id number] Admin: 05/13/19 20:23 Dose: 17 gm Documented by: [id number] Admin: 05/13/19 07:56 Dose: 17 gm Documented by: [id number] Admin: 05/12/19 21:13 Dose: 17 gm Documented by: [id number] Promethazine HCl (Phenergan) 12.5 mg PO Q6H PRN PRN Reason: Nausea Stop: 06/10/19 17:51 Last Admin: 05/14/19 00:48 Dose: 12.5 mg Documented by: [id number] Admin: 05/13/19 11:09 Dose: 12.5 mg Documented by: [id number] Admin: 05/12/19 23:36 Dose: 12.5 mg Documented by: [id number] Admin: 05/12/19 11:46 Dose: 12.5 mg Documented by: [id number] Admin: 05/12/19 01:05 Dose: 12.5 mg Documented by: [id number] Quetiapine Fumarate (Seroquel) 100 mg PO HS [facility] Stop: 06/11/19 20:59 Last Admin: 05/13/19 20:24 Dose: 100 mg Documented by: [id number] Admin: 05/12/19 21:14 Dose: 100 mg Documented by: [id number] Fluticasone/Salmeterol (Advair Diskus 500/50) 1 puffs INH BID [facility] Stop: 06/10/19 20:59 Last Admin: 05/14/19 08:06 Dose: 1 puffs Documented by: [id number] Admin: 05/13/19 20:21 Dose: 1 puffs Documented by: [id number] Admin: 05/13/19 07:58 Dose: 1 puffs Documented by: [id number] Admin: 05/12/19 21:17 Dose: 1 puffs Documented by: [id number] Admin: 05/12/19 08:08 Dose: 1 puffs Documented by: [id number] Admin: 05/11/19 21:03 Dose: 1 puffs Documented by: [id number] Topiramate (Qudexy Xr) 2 ea PO BID [facility] Stop: 06/10/19 20:59 Last Admin: 05/14/19 08:07 Dose: 2 ea Documented by: [id number] Admin: 05/13/19 20:26 Dose: 2 ea Documented by: [id number] Admin: 05/13/19 07:58 Dose: 2 ea Documented by: [id number] Admin: 05/12/19 21:19 Dose: 2 ea Documented by: [id number] Admin: 05/12/19 08:06 Dose: 2 ea Documented by: [id number] Admin: 12/07/19 21:07 Dose: 2 ea Documented by: [id number] Trazodone HCl (Desyrel) [address] [facility] Stop: 06/10/19 20:59 Last Admin: 05/13/19 20:22 Dose: 50 mg Documented by: [id number] Admin: 05/12/19 21:18 Dose: 50 mg Documented by: [id number] Admin: 05/11/19 21:09 Dose: 50 mg Documented by: [id number] Trazodone HCl (Desyrel) [address] [facility] Stop: 06/10/19 20:59 Last Admin: 05/13/19 20:25 Dose: 100 mg Documented by: [id number] Admin: 05/12/19 21:17 Dose: 100 mg Documented by: [id number] Admin: 05/11/19 21:04 Dose: 100 mg Documented by: [id number] Venlafaxine HCl (Effexor Extended Release) 37.5 mg PO [facility] Stop: 06/11/19 08:59 Last Admin: 05/14/19 08:03 Dose: 37.5 mg Documented by: [id number] Admin: 05/13/19 07:57 Dose: 37.5 mg Documented by: [id number] Admin: 05/12/19 08:04 Dose: 37.5 mg Documented by: [id number] Venlafaxine HCl (Effexor Extended Release) 150 mg PO [facility] Stop: 06/11/19 08:59 Last Admin: 05/14/19 08:02 Dose: 150 mg Documented by: [id number] Admin: 05/13/19 08:02 Dose: 150 mg Documented by: [id number] Admin: 05/12/19 08:04 Dose: 150 mg Documented by: [id number] Coding Level of Care Code 84877 [facility] Intl Hosp Care Lvl 2 Diagnoses Suicidal ideation R45.851 Insomnia G47.00 Schizoaffective disorder F25.0 Schizoaffective disorder type: bipolar PTSD (post-traumatic stress disorder) F43.10 Anxiety F41.9
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
[2019-05-14] MEDS: DAPTOmycin 300 MG in SYRINGE 0 ML IV SCH (16:39)
[2019-05-14] MEDS: TRAZODONE HCL 50 MG TAB PO SCH (21:45)
[2019-05-14] MEDS: FAMOTIDINE 40 MG TABLET PO SCH (21:46)
[2019-05-14] MEDS: QUETIAPINE FUMARATE 100 MG TABLET PO SCH (21:48)
[2019-05-14] MEDS: TRAZODONE HCL 100 MG TAB PO SCH (21:49)
[2019-05-15] MEDS ORDERED: ZOLPIDEM TARTRATE 5 MG TAB PO ONE (01:47)
[2019-05-15] MEDS: LORazepam 1 MG/2 ML VIAL IV PRN (03:20)
[2019-05-15] MEDS: QUETIAPINE FUMARATE 25 MG TABLET PO SCH ×2 (06:30→13:27)
[2019-05-15] MEDS: LEVOTHYROXINE SODIUM 88 MCG TABLET PO SCH (06:30)
[2019-05-15] MEDS: FLUTICASONE/SALMETEROL (ADVAIR) 500/50 INH 14 PUFF INH SCH ×2 (09:03→21:19)
[2019-05-15] MEDS: DiphenhydrAMINE HCL 50 MG/ML VIAL IV SCH ×3 (09:05→23:49)
[2019-05-15] MEDS: PANTOprazole 40 MG TAB PO SCH ×2 (09:08→21:24)
[2019-05-15] MEDS: VALPROATE SOD 500 MG in DEXTROSE 5% 50 ML IV SCH (09:09)
[2019-05-15] MEDS: MEXILETINE HCL 150 MG CAPSULE PO SCH ×3 (09:10→21:25)
[2019-05-15] MEDS: VENLAFAXINE HCL XR 37.5 MG CAPXR PO SCH (09:11)
[2019-05-15] MEDS: VENLAFAXINE HCL XR 150 MG CAPXR PO SCH (09:11)
[2019-05-15] MEDS: LACTOBACILLUS ACIDOPHILUS (FLORANEX) TAB PO SCH ×4 (09:12→21:24)
[2019-05-15] MEDS: APIXABAN 5 MG TABLET PO SCH ×2 (09:12→21:22)
[2019-05-15] MEDS: HYOSCYAMINE SULFATE 0.125 MG TAB PO SCH ×3 (09:15→21:26)
[2019-05-15] MEDS: POLYETHYLENE (MIRALAX) 17 GM PACK PO SCH ×2 (09:17→21:26)
[2019-05-15] MEDS: BREXPIPRAZOLE PO SCH (09:18)
[2019-05-15] MEDS: TOPIRAMATE XR PO SCH ×2 (09:19→21:26)
[2019-05-15] MEDS: CYANOCOBALAMIN 500 MCG TABLET (VITAMIN B-12) PO SCH (09:20)
[2019-05-15] MEDS: NSS + 20MEQ KCL 20 MEQ/1,000 ML BAG IV SCH ×2 (10:33→23:48)
[2019-05-15] MEDS: PRENATAL GUMMIES PO SCH (13:22)
--- NOTE | 2019-05-15 15:47 | Hospitalist Progress Note ---
Date of Service May 15, 2019 Assessment & Plan (1) Suicidal ideation: patient hid her knife and fork in bedding with plan to harm herself will be on one to one, suicide precautions with finger foods family at the bedside most of the day Seroquel 12.5mg BID added to 100mg HS no suicidal ideation today, continue one to one will ask psych to re-evaluate tomorrow possible d/c to home if they clear her (2) Abscess of labia: Patient recently in the emergency department 05/08/2019 and the abscess was drained by Dr. jean baptiste Patient failed antibiotic therapy as an outpatient continue on ceftazidime and Daptomycin Due to MRSA and Pseudomonas, Dr. Charlton recommends 14-21 days of antibiotics No leukocytosis or lactic acidosis patient already has access chronically will ask CM to look into home IV antibiotics starting tomorrow Wound care provider evaluated wound, fortunately there is no need for debridement, pleased with how it is healing vitals stable, no signs of sepsis can follow up with wound clinic anticipate being ready for discharge tomorrow if cleared by psychiatry (3) Chronic migraine without aura, intractable, without status migrainosus: Patient follows with clinic in [place] and was there 05/10/19 for injections including Solu-Medrol Patient was to take Solu-Medrol 40 mg, held due to infection Continue to treat headaches supportively Emgality given on 05/12 which is a once a month medication no headache for a few days (4) Neurogenic bladder: Follows with Dr. Mariano Washington from urology Etiology for neurogenic bladder is spina bifida Patient has indwelling suprapubic catheter, exchanged by her mother on 05/12 (silver catheter) Will flush the catheter twice daily, Ricacidin for 30 minutes every evening Strict I's and O's (5) Schizoaffective disorder: Continue usual home medications Follow expectantly (6) UTI (urinary tract infection): Indwelling suprapubic catheter Patient started on ceftazidime which should cover urologic pathology Follow strict I's and O's (7) Spina bifida: Sling and a Jojo lift use at home Follow per protocol (8) History of pulmonary embolism: No acute sequela Patient is chronically anticoagulated with Eliquis Follow clinically (9) DVT prophylaxis: Chronically anticoagulated with Eliquis Chronic paraplegia secondary to spina bifida No indication for mechanical prophylaxis Please refer to Dr. Vazquez's addendum for further recommendations. (10) Insomnia: will increase Seroquel to 100mg HS Subjective patient feeling more upbeat today, she says that she is no longer suicidal she says she is hallucinating though, she is seeing black tar on the [place] and monkeys in her room she says that when she hurt herself it was because a voice in her head was telling her to do so, no longer hearing the voice she asked to be off the one to one, told her that perhaps tomorrow, would need to be seen by psychiatry again she says she is looking into getting a new psychiatrist no labs checked today updated her mom at the bedside she may be able to go home tomorrow if cleared by psychiatry Review of Systems Review of Systems: All systems reviewed & are unremarkable except as noted in HPI & below Constitutional: + fatigue; no fever, no chills, no sweats and no weakness Respiratory: no cough and no dyspnea Cardiovascular: no chest pain Gastrointestinal: + early satiety; no abdominal pain, no nausea, no vomiting, no constipation and no diarrhea/loose stools Psychiatric: + depression and + visual hallucinations; no suicidal ideation, no anxiety and no auditory hallucinations Physical Exam Constitutional: well nourished and + morbidly obese; not ill appearing, not in distress and not diaphoretic Eyes: PERRL, conjunctivae normal, anicteric sclerae ENMT: external ear and nose normal, oropharynx normal Neck: trachea midline, no thyromegaly Respiratory: normal respiratory effort, lungs clear to auscultation (decreased in bases) Cardiovascular: RRR, no murmur, no edema Gastrointestinal (Abdomen): normal bowel sounds, soft, nontender, no hepatosplenomegaly Musculoskeletal: no cyanosis or clubbing, 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) Skin: no rashes, warm and dry Neurologic: patellar DTR's 2+ bilat, sensation intact and PERRL, EOMI, accommodation nl, no face palsy, no dysarthria Psychiatric: Orientation: alert and oriented x 3 Affect: euthymic affect Lymphatic: no cervical or axillary lymphadenopathy Results & Data Vital Signs (Past 12 Hours) Vital Signs Temp Pulse Resp BP Pulse Ox 05/15/19 15:43 106 H 20 96 05/15/19 15:19 36.9 C 108 H 16 115/78 98 05/15/19 07:25 36.6 C 104 H 20 128/80 100 Medications Administered Current Inpatient Medications Acetaminophen (Tylenol) 650 mg PO Q4H PRN PRN Reason: pain/fever Stop: 06/10/19 17:51 Last Admin: 05/14/19 18:19 Dose: 650 mg Documented by: Albuterol (Ventolin Hfa) 2 puffs INH Q6 PRN PRN Reason: Shortness Of Breath Stop: 06/10/19 18:07 Apixaban (Eliquis) 5 mg PO BID [facility] Stop: 06/10/19 20:59 Last Admin: 05/15/19 09:12 Dose: 5 mg Documented by: Benztropine Mesylate (Cogentin) 1 mg PO TID PRN PRN Reason: Migraine Headache Stop: 06/10/19 17:51 Last Admin: 05/14/19 18:19 Dose: 1 mg Documented by: Cetirizine HCl (Zyrtec) 10 mg PO DAILY PRN PRN Reason: Allergies or Antibiotics Stop: 06/10/19 17:51 Last Admin: 05/12/19 08:04 Dose: 10 mg Documented by: Cyanocobalamin (Vitamin B-12) 1,000 mcg PO QAM [facility] Stop: 06/11/19 08:59 Last Admin: 05/15/19 09:20 Dose: 1,000 mcg Documented by: Diphenhydramine HCl (Benadryl) 25 mg IV Q8H [facility] Stop: 06/10/19 23:29 Last Admin: 05/15/19 16:02 Dose: 25 mg Documented by: Famotidine (Pepcid) 40 mg PO HS [facility] Stop: 06/10/19 20:59 Last Admin: 05/14/19 21:46 Dose: 40 mg Documented by: Haloperidol (Haldol) 2.5 mg PO Q12 PRN PRN Reason: PRN Stop: 06/10/19 18:25 Last Admin: 05/11/19 22:29 Dose: 2.5 mg Documented by: Heparin Sodium (Porcine) (Heparin Sod 100 Unit/Ml Flush) 5 ml FLUSH PRN PRN PRN Reason: Flush Stop: 06/11/19 00:44 Hydromorphone HCl (Dilaudid) 0.5 mg IV Q6 PRN PRN Reason: Pain Stop: 05/26/19 00:00 Last Admin: 05/14/19 01:29 Dose: 0.5 mg Documented by: Hydroxyzine HCl (Vistaril) 25 mg PO QID [facility] Stop: 06/11/19 16:59 Last Admin: 05/15/19 15:17 Dose: 25 mg Documented by: Hyoscyamine (Levsin) 0.125 mg PO TID [facility] Stop: 06/10/19 20:59 Last Admin: 05/15/19 13:26 Dose: 0.125 mg Documented by: Potassium Chloride/Sodium Chloride (Normal Saline W/20 Meq Kcl) 20 meq in 1,000 mls @ 80 mls/hr IV .[id number] [facility] Stop: 06/10/19 18:59 Last Admin: 05/15/19 10:33 Dose: 80 mls/hr Documented by: Ceftazidime 2,000 mg/ Dextrose 60 mls @ 100 mls/hr IV Q8H [facility]; Protocol Stop: 05/22/19 00:00 Last Infusion: 05/15/19 13:30 Dose: Infused Documented by: Valproic Acid 500 mg/ Dextrose 55 mls @ 55 mls/hr IV Q24H [facility] Stop: 06/11/19 07:59 Last Infusion: 05/15/19 10:34 Dose: Infused Documented by: Daptomycin 300 mg/ Syringe 6 mls @ 3 mls/min IV Q24H [facility]; Protocol Stop: 05/22/19 15:59 Last Admin: 05/14/19 16:39 Dose: 3 mls/min Documented by: Lorazepam (Ativan) 1 mg in 2 mls @ 2 mls/min IV Q4H PRN PRN Reason: Anxiety/Agitation Stop: 06/12/19 19:14 Last Admin: 05/15/19 03:20 Dose: 2 mls/min Documented by: Lactobacillus Acidophilus (Floranex) 4 tab PO QID [facility] Stop: 06/10/19 20:59 Last Admin: 05/15/19 13:21 Dose: 4 tab Documented by: Levalbuterol HCl (Xopenex 0.63 Mg/3 Ml Neb) 0.63 mg INH Q6H PRN PRN Reason: Shortness Of Breath Stop: 06/10/19 17:51 Last Admin: 05/15/19 15:43 Dose: 0.63 mg Documented by: Levothyroxine Sodium (Synthroid) 88 mcg PO DAILYBB [facility] Stop: 06/11/19 06:29 Last Admin: 05/15/19 06:30 Dose: 88 mcg Documented by: Metoclopramide HCl (Reglan) 10 mg PO BID PRN PRN Reason: acute headaches Stop: 06/10/19 17:51 Last Admin: 05/12/19 06:05 Dose: 10 mg Documented by: Mexiletine HCl (Mexitil) 300 mg PO 0800,1200,2100 [facility] Stop: 06/10/19 20:59 Last Admin: 05/15/19 13:20 Dose: 300 mg Documented by: Montelukast Sodium (Singulair) 10 mg PO HS PRN PRN Reason: Allergy Symptoms Stop: 06/10/19 17:51 Last Admin: 05/12/19 21:16 Dose: 10 mg Documented by: Brexpiprazole: Non- Formulary Patient's Own Med 1 ea PO QAM [facility] Stop: 06/11/19 08:59 Last Admin: 05/15/19 09:18 Dose: 4 mg Documented by: Hydrofera Dressing: Non-Formulary Patient's Own Med 1 ea TOP UD [facility] Stop: 06/10/19 19:59 Gummies~Non -Formulary Patient's Own Med 1 ea PO QDL [facility] Stop: 06/12/19 11:29 Last Admin: 05/15/19 13:22 Dose: 1 ea Documented by: Nystatin (Mycostatin) 1 appln EXT TID PRN PRN Reason: Skin Irritation Stop: 06/10/19 17:51 Nystatin/Triamcinolone Acetonide (Mycolog Ii) 1 appln EXT TID PRN PRN Reason: AFFECTED SKIN Stop: 06/10/19 17:51 Ondansetron HCl (Zofran Odt) 8 mg PO Q6H PRN PRN Reason: Nausea Stop: 06/10/19 17:51 Last Admin: 05/14/19 04:47 Dose: 8 mg Documented by: Pantoprazole Sodium (Protonix) 40 mg PO BID@0730,2100 [facility] Stop: 06/10/19 20:59 Last Admin: 05/15/19 09:08 Dose: 40 mg Documented by: Polyethylene Glycol (Miralax Powder Packet) 17 gm PO BID [facility] Stop: 06/11/19 20:59 Last Admin: 05/15/19 09:17 Dose: 17 gm Documented by: Promethazine HCl (Phenergan) 12.5 mg PO Q6H PRN PRN Reason: Nausea Stop: 06/10/19 17:51 Last Admin: 05/14/19 00:48 Dose: 12.5 mg Documented by: Quetiapine Fumarate (Seroquel) 100 mg PO [facility] Stop: 06/11/19 20:59 Last Admin: 05/14/19 21:48 Dose: 100 mg Documented by: Quetiapine Fumarate (Seroquel) 12.5 mg PO [id number] [facility] Stop: 06/14/19 06:59 Last Admin: 05/15/19 13:27 Dose: 12.5 mg Documented by: Fluticasone/Salmeterol (Advair Diskus 500/50) 1 puffs INH BID [facility] Stop: 06/10/19 20:59 Last Admin: 05/15/19 09:03 Dose: 1 puffs Documented by: Topiramate (Qudexy Xr) 2 ea PO BID [facility] Stop: 06/10/19 20:59 Last Admin: 05/15/19 09:19 Dose: 2 ea Documented by: Trazodone HCl (Desyrel) 50 mg PO [facility] Stop: 06/10/19 20:59 Last Admin: 05/14/19 21:45 Dose: 50 mg Documented by: Trazodone HCl (Desyrel) 100 mg PO [facility] Stop: 06/10/19 20:59 Last Admin: 05/14/19 21:49 Dose: 100 mg Documented by: Venlafaxine HCl (Effexor Extended Release) 37.5 mg PO QAM [facility] Stop: 06/11/19 08:59 Last Admin: 05/15/19 09:11 Dose: 37.5 mg Documented by: Venlafaxine HCl (Effexor Extended Release) 150 mg PO QAM [facility] Stop: 06/11/19 08:59 Last Admin: 05/15/19 09:11 Dose: 150 mg Documented by: PG Care Time/CCT Total # of Minutes Spent Total Time Spent with Patient: Total time spent is greater than 50% in coordination of care (as documented) at patient's floor/unit and/or counseling patient: (1) UTI (urinary tract infection) Hematuria presence: without hematuria Urinary tract infection type: site unspecified Qualified Code(s): N39.0 - Urinary tract infection, site not specified (2) Schizoaffective disorder Schizoaffective disorder type: bipolar Qualified Code(s): F25.0 - Schizoaffective disorder, bipolar type (3) Spina bifida Presence of hydrocephalus: with hydrocephalus Spinal region: unspecified Qualified Code(s): Q05.4 - Unspecified spina bifida with hydrocephalus
[2019-05-15] MEDS: DAPTOmycin 300 MG in SYRINGE 0 ML IV SCH (17:10)
[2019-05-15] MEDS: TRAZODONE HCL 50 MG TAB PO SCH (21:20)
[2019-05-15] MEDS: ONDANSETRON 8MG OD TAB PO PRN (21:20)
[2019-05-15] MEDS: FAMOTIDINE 40 MG TABLET PO SCH (21:24)
[2019-05-15] MEDS: TRAZODONE HCL 100 MG TAB PO SCH (21:25)
[2019-05-15] MEDS: QUETIAPINE FUMARATE 100 MG TABLET PO SCH (21:27)
[2019-05-15] MEDS: HYDROmorphone INJ 0.5 MG/0.5 ML SYR IV PRN (22:25)
[2019-05-16] MEDS: PROMETHAZINE HCL 25 MG TAB PO PRN (00:29)
[2019-05-16] MEDS: ONDANSETRON 8MG OD TAB PO PRN (03:40)
[2019-05-16] MEDS: LEVOTHYROXINE SODIUM 88 MCG TABLET PO SCH (06:02)
[2019-05-16] MEDS: QUETIAPINE FUMARATE 25 MG TABLET PO SCH ×2 (06:03→12:50)
[2019-05-16] MEDS: DiphenhydrAMINE HCL 50 MG/ML VIAL IV SCH ×2 (09:20→16:14)
[2019-05-16] MEDS: PANTOprazole 40 MG TAB PO SCH (09:25)
[2019-05-16] MEDS: FLUTICASONE/SALMETEROL (ADVAIR) 500/50 INH 14 PUFF INH SCH (09:27)
[2019-05-16] MEDS: MEXILETINE HCL 150 MG CAPSULE PO SCH ×2 (09:27→12:48)
[2019-05-16] MEDS: VENLAFAXINE HCL XR 37.5 MG CAPXR PO SCH (09:28)
[2019-05-16] MEDS: VENLAFAXINE HCL XR 150 MG CAPXR PO SCH (09:28)
[2019-05-16] MEDS: APIXABAN 5 MG TABLET PO SCH (09:29)
[2019-05-16] MEDS: LACTOBACILLUS ACIDOPHILUS (FLORANEX) TAB PO SCH ×2 (09:30→12:49)
[2019-05-16] MEDS: HYOSCYAMINE SULFATE 0.125 MG TAB PO SCH ×2 (09:31→12:50)
[2019-05-16] MEDS: POLYETHYLENE (MIRALAX) 17 GM PACK PO SCH (09:31)
[2019-05-16] MEDS: BREXPIPRAZOLE PO SCH (09:33)
[2019-05-16] MEDS: TOPIRAMATE XR PO SCH (09:34)
[2019-05-16] MEDS: CYANOCOBALAMIN 500 MCG TABLET (VITAMIN B-12) PO SCH (09:35)
[2019-05-16] MEDS: VALPROATE SOD 500 MG in DEXTROSE 5% 50 ML IV SCH (09:37)
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
[2019-05-16] MEDS: PRENATAL GUMMIES PO SCH (10:45)
[2019-05-16] MEDS: NSS + 20MEQ KCL 20 MEQ/1,000 ML BAG IV SCH (12:47)
[2019-05-16 15:09] LABS: Alanine Aminotransferase 37 U/L (12-78); Albumin Level 2.8 gm/dl (3.4-5.0); Alkaline Phosphatase 103 U/L (45-117); Aspartate Aminotransferase 11 U/L (15-37); Bilirubin Direct < 0.1 mg/dl (0-0.2); Bilirubin,Total 0.2 mg/dl (0.2-1); Creatine Kinase 15 U/L (26-192); Total Protein 7.2 gm/dl (6.4-8.2)
--- NOTE | 2019-05-16 16:02 | Discharge Summary ---
Date of Service May 16, 2019 Admission HPI Per Admitting Provider Is a 34-year-old female that presents with labial infection and increased pain and open sores. The patient has a complex past medical history including spina bifida, prediabetes, obesity, bilateral below the knee amputation, neurogenic bladder with suprapubic catheter, drug resistance with MRSA infection, bipolar disorder, schizoaffective disorder, dermatitis, status post [employer] shunt, chronic constipation, gastroparesis, complex migraines. The patient has paraplegia secondary to spina bifida resulting in chronic difficulty with sores. She was recently into the emergency department on 05 08 for pain and found to have an abscess. This was drained by Dr. jean baptiste in the ED and the patient was discharged home on antibiotics. The patient is here with her mother and they state that the pain has worsened to the point where she can not move or roll over in bed. She was given ceftazidime in the emergency department due to her history of MRSA and her new pseudomonal infection. The patient does have chronic migraines and was treated yesterday with typical migraine medications including Solu-Medrol. At this point she denies migraine so I have held the Solu-Medrol during this admission. The patient denies any fever, chills, sweats, rigors. She did have chills but no documented fever per the mother. She has had usual bowel movements. She has a suprapubic catheter and the urine has appeared to be as is typical for her. She does have tenderness at the site of the suprapubic catheter entry point. The catheter is in place for neurogenic bladder which is managed by Dr. Mariano Washington. The patient is alert and oriented. She has no tachycardia. She has no overt signs of sepsis. She denies nausea or vomiting. The patient uses a sling and a Jojo lift to be repositioned at home. Principal Diagnosis Labial abscess growing Pseudomonas and MRSA Discharge Exam Constitutional well nourished and + morbidly obese; not ill appearing, not in distress and not diaphoretic Eyes PERRL, conjunctivae normal, anicteric sclerae ENMT external ear and nose normal, oropharynx normal Neck trachea midline, no thyromegaly Respiratory normal respiratory effort, lungs clear to auscultation (decreased in bases) Cardiovascular RRR, no murmur, no edema Gastrointestinal (Abdomen) normal bowel sounds, soft, nontender, no hepatosplenomegaly Musculoskeletal no cyanosis or clubbing, 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) Skin no rashes, warm and dry Neurologic patellar DTR's 2+ bilat, sensation intact and PERRL, EOMI, accommodation nl, no face palsy, no dysarthria Psychiatric Orientation: alert and oriented x 3 Affect: + depressed affect Mood: + depressed mood Suicidal Thoughts: + reports suicidal thoughts, + reports suicidal plan and + reports suicidal intent Hallucinations: no visual hallucinations Cognition: recent memory grossly intact Lymphatic no cervical or axillary lymphadenopathy Discharge Data Allergies Allergy/AdvReac Type Severity Reaction Status Date / Time chlorhexidine Allergy Severe Rash Verified 05/11/19 14:56 adhesive Allergy Intermediate TAPE- HIVES Verified 05/11/19 14:56 ceftriaxone Allergy Intermediate rash, Has Verified 05/11/19 14:56 tolerated cefepime and Zerbaxa Cipro Allergy Intermediate hives Verified 01/11/18 17:31 ciprofloxacin Allergy Intermediate hives Verified 05/11/19 14:56 clindamycin Allergy Intermediate Redness/Itc Unverified 05/11/19 14:57 hiness imipenem Allergy Intermediate PT REPORTS Verified 05/11/19 14:56 ITCHING levofloxacin Allergy Intermediate rash,HEARD Verified 05/11/19 14:56 VOICES linezolid Allergy Intermediate rash Verified 05/11/19 14:56 nitrofurantoin Allergy Intermediate rash and Verified 05/11/19 14:56 hives trimethoprim Allergy Intermediate Hives Verified 05/11/19 14:56 vancomycin Allergy Intermediate rash Verified 05/11/19 14:56 amikacin Allergy Unknown PER DR Verified 05/11/19 14:56 ROBINS,RXN WAS TO ZOSYN NOT AMKrash;hives Bactrim Allergy Unknown Hives Verified 01/11/18 17:31 sulfamethoxazole Allergy Unknown Hives Verified 05/11/19 14:56 buspirone AdvReac Severe HALLUCINATI Verified 05/11/19 14:56 ONS piperacillin AdvReac Intermediate SEVERE Verified 05/11/19 14:56 RASH, HIVES tazobactam AdvReac Intermediate SEVERE Verified 05/11/19 14:56 RASH, HIVES latex AdvReac Unknown Verified 05/11/19 14:56 Consultations 05/11/19 15:44 ED Decision to Admit Stat 05/11/19 17:52 Consult Case Management - Discharge Planning Routine 05/13/19 15:24 Consult Wound Care Provider Routine 05/13/19 23:11 Consult Infectious Diseases Routine 05/14/19 09:09 Consult Psychiatry Routine Hospital Course (1) Suicidal ideation: patient hid her knife and fork in bedding with plan to harm herself will be on one to one, suicide precautions with finger foods family at the bedside most of the day Seroquel 12.5mg BID added to 100mg HS no suicidal ideation for two days, she admits that voices in her head were telling her suicide would be a good idea she is no longer hearing voices okay for discharge from psychiatric standpoint will follow up with her outpatient psychiatrist (2) Abscess of labia: Patient recently in the emergency department 05/08/2019 and the abscess was drained by Dr. jean baptiste Patient failed antibiotic therapy as an outpatient continue on ceftazidime and Daptomycin Due to MRSA and Pseudomonas, Dr. Robins recommends 14-21 days of antibiotics No leukocytosis or lactic acidosis d/c home on 14 more days of Daptomycin and Ceftazidime follow up with wound clinic and ID Wound care provider evaluated wound, fortunately there is no need for debridement, pleased with how it is healing vitals stable, no signs of sepsis can follow up with wound clinic continue to apply barrier cream BID (3) Chronic migraine without aura, intractable, without status migrainosus: Patient follows with clinic in [place] and was there 05/10/19 for injections including Solu-Medrol Patient was to take Solu-Medrol 40 mg, held due to infection Continue to treat headaches supportively Emgality given on 05/12 which is a once a month medication no headache for a few days (4) Neurogenic bladder: Follows with Dr. Mariano Washington from urology Etiology for neurogenic bladder is spina bifida Patient has indwelling suprapubic catheter, exchanged by her mother on 05/12 (silver catheter) Will flush the catheter twice daily, Ricacidin for 30 minutes every evening Strict I's and O's (5) Schizoaffective disorder: Continue usual home medications Follow expectantly (6) UTI (urinary tract infection): Indwelling suprapubic catheter Patient started on ceftazidime which should cover urologic pathology Follow strict I's and O's (7) Spina bifida: Sling and a Jojo lift use at home Follow per protocol (8) History of pulmonary embolism: No acute sequela Patient is chronically anticoagulated with Eliquis Follow clinically (9) Insomnia: will increase Seroquel to 100mg HS helping slightly Total Time Total Time Spent Total Time Spent (In Minutes): 33 minutes Total Time Includes: Examination of the Patient, Discharge Planning, Medication Reconciliation, Communication With Other Providers (psychiatry, wound care, infectious disease, pillowcase folder) and Other (discussed with patient's mother) Discharge Plan Discharge Items Patient Disposition: Home - Home Health Services Reason For Visit: INFECTION Discharge Diagnosis: Labial abscess with MRSA and Pseudomonas Anxiety and depression Neurogenic bladder with suprapubic catheter Condition on Discharge: Good Goals: complete 14 days of Daptomycin and Ceftazidime continue barrier cream twice a day to wound, follow up with wound clinic next week follow up closely with psychiatry, outpatient counselor about anxiety and depression Activity: Resume your previous activity Non-emergency contact: Primary Care Provider Call non-emergency contact if: you have any medication questions, your symptoms worsen, your pain is not controlled and you have a fever Follow-up/Referrals: Gela Boone MD [Primary Care Provider] - Diet: Regular Addtl Attending Provider Instructions: Medications: - DAPTOMYCIN and CEFTAZIDIME: complete 14 days of each for treatment of abscess - SEROQUEL: dose increased to 100mg at bedtime, take 12.5mg in the morning and afternoon for depression/anxiety Labial abscess, wound, growing MRSA and Pseudomonas Dr. Robins recommends 14 days of antibiotics wound care recommends continuing barrier cream twice a day and follow up with wound clinic next week Anxiety / depression: see the changes to Seroquel above recommend close follow up with outpatient counselor/psychiatrist Umbilical hernia: I contacted Dr. Price, he said his office will be in contact to reschedule surgery once infection clears FOLLOW UP - Dr. Boone in one week, call for appointment Pending Studies at Discharge: No Stand-Alone Forms: [employer], Smoking Cessation Medications and DC Order Prescriptions: New quetiapine 100 mg Tablet 100 mg PO HS 30 Days Qty: 30 RF: 3 quetiapine 25 mg Tablet 12.5 mg PO [id number] 30 Days Qty: 30 RF: 1 daptomycin 350 mg recon soln 300 mg IV DAILY Qty: 14 RF: 0 ceftazidime 2 gram recon soln 2 gm IV Q8H 14 Days Qty: 14 RF: 0 Continued Eliquis 5 mg tablet 5 mg PO BID Qty: 180 RF: 3 cetirizine [Zyrtec] 10 mg tablet 10 mg PO DAILY PRN (Reason: Allergies or Antibiotics) Qty: 60 RF: 5 fluticasone propion-salmeterol [Advair Diskus] 500-50 mcg/dose blister with device 1 inh INHALATION BID Qty: 60 RF: 5 levalbuterol HCl [Xopenex] 0.63 mg/3 mL solution for nebulization 0.63 mg INHALATION Q6H PRN (Reason: Shortness Of Breath) Qty: 36 RF: 1 pantoprazole 40 mg tablet,delayed release (DR/EC) See Rx Instructions .ROUTE .COMPLEX Qty: 60 RF: 1 Hydrofera Blue 4 X 4 " bandage 1 ea TOP UD RF: 0 triamcinolone acetonide 0.1 % cream 1 appln topical TID PRN (Reason: Itching) RF: 0 nystatin-triamcinolone 100,000-0.1 unit/gram-% ointment 1 appln topical TID PRN (Reason: AFFECTED SKIN) Qty: 1 RF: 0 haloperidol 2 mg tablet 2.5 mg PO Q12 MDD 2x/wk PRN (Reason: PRN) RF: 0 topiramate [Qudexy XR] 100 mg capsule,sprinkle,ER 24hr 200 mg PO BID RF: 0 venlafaxine 150 mg capsule,extended release 24hr 150 mg PO QAM RF: 0 mexiletine 150 mg capsule 300 mg PO TIDM RF: 0 trazodone 150 mg tablet 150 mg PO HS RF: 0 metoclopramide HCl [Reglan] 10 mg tablet 10 mg PO BID MDD 2x/wk PRN (Reason: acute headaches) RF: 0 Multi 27-800 mg-mcg Tablet 1 tab PO QDL RF: 0 Probiotic 3 billion cell capsule 3,000 mmu cells PO QDL RF: 0 Botox 100 unit Recon Soln 1 dose IM DIRECTED RF: 0 albuterol sulfate [ProAir HFA] 90 mcg/actuation HFA aerosol inhaler 2 puffs INH Q6 PRN (Reason: shortness of breath or wheezing) RF: 0 nystatin 100,000 unit/gram Powder 1 applic TOPICAL TID PRN (Reason: Skin Irritation) RF: 0 polyethylene glycol 3350 [Miralax] 17 gram/dose Powder 17 g PO TID PRN (Reason: Constipation) RF: 0 venlafaxine 37.5 mg capsule,extended release 24hr 37.5 mg PO QAM RF: 0 levothyroxine 88 mcg tablet 88 mcg PO DAILYBB RF: 0 montelukast [Singulair] 10 mg tablet 10 mg PO HS PRN (Reason: Allergy Symptoms) RF: 0 promethazine 12.5 mg Tablet 12.5 mg PO Q6H PRN (Reason: Nausea) RF: 0 cyanocobalamin (vitamin B-12) [Vitamin B-12] 1,000 mcg Tablet 1,000 mcg PO QAM RF: 0 dihydroergotamine [D.H.E.45] 1 mg/mL Solution 0 mg IM DIRECTED RF: 0 benztropine 1 mg Tablet 1 mg PO TID PRN (Reason: Migraine Headache) RF: 0 Emgality Pen 120 mg/mL Pen Injector 120 mg SUBCUT UD RF: 0 hyoscyamine sulfate 0.125 mg tablet 0.125 mg PO TID RF: 0 methylprednisolone sodium succ [Solu-Medrol] 1,000 mg Recon Soln 40 mg IM DAILY RF: 0 diphenhydramine HCl [Benadryl] 25 mg Capsule 25 mg PO QID PRN (Reason: Allergic Symptoms) RF: 0 valproate sodium 500 mg/5 mL (100 mg/mL) Solution 500 mg IV DAILY RF: 0 Rexulti 2 mg tablet 4 mg PO QAM RF: 0 hydroxyzine HCl 25 mg tablet 25 mg PO QID PRN (Reason: Anxiety) RF: 0 ondansetron 8 mg tablet,disintegrating 8 mg PO Q6H PRN (Reason: Nausea) RF: 0 famotidine 40 mg Tablet 40 mg PO HS RF: 0 Discontinued quetiapine [Seroquel] 50 mg tablet 50 mg PO HS RF: 0 Daptomycin Iv 4 mg IV HS RF: 0 Discharge Orders: Discharge Order (Routine); Ordered 05/16/19 Ordered By: Rudy Vazquez Admission Data Admit Date/Time: 05/11/19 16:02 Attending Provider: Rudy Vazquez Admit Provider: Rudy Vazquez Primary Care Provider: Gela Boone Other Providers: Rudy Vazquez ; [facility] ; Qamar Bauman ; Connie Robins ; Daysi Valderrama Other Interventions: Discharge Summary Assessment (RN) Last Done: 05/16/19 15:51 DC Date/Time DO NOT enter until pt leaves facility: 05/16/19 16:51
[2019-05-16] MEDS: DAPTOmycin 300 MG in SYRINGE 0 ML IV SCH (16:14)
== END 2019-05-16 16:51 | disposition home health service (06) | DRG 758 ==
LOC: ED 13:59 → 2W 16:02

== ENCOUNTER 2019-06-09 15:23 | Observation (INO) ==
[2019-06-09] MEDS ORDERED: ONDANSETRON INJ 2 MG/ML 2 ML VIAL IV STA (15:47)
[2019-06-09 16:11] LABS: Basophils # (auto) 0.03 K/uL (0-0.2); Basophils % (auto) 0.6 %; Eosinophils # (auto) 0.21 K/uL (0-0.5); Eosinophils % (auto) 4.1 %; Hematocrit (blood only) 37.3 % (37-47); Hemoglobin 11.5 g/dL (12.0-16.0); Immature Granulocytes # (auto) 0.01 K/uL (0.00-0.02); Immature Granulocytes % (auto) 0.2 %; Lymphocytes # (auto) 1.46 K/uL (1.2-3.4); Lymphocytes % (auto) 28.6 %; Mean Corpuscular Hemoglobin 28.1 pg (25-34); Mean Corpuscular Hgb Conc 30.8 g/dL (32-36); Mean Corpuscular Volume 91.2 fL (80-100); Monocytes # (auto) 0.48 K/uL (0.11-0.59); Monocytes % (auto) 9.4 %; Neutrophils # (auto) 2.91 K/uL (1.4-6.5); Neutrophils % (auto) 57.1 %; Platelet Count 251 K/uL (130-400); RDW Coefficient of Variation 16.5 % (11.5-14.5); RDW Standard Deviation 54.5 fL (36.4-46.3); Red Blood Count 4.09 M/uL (4.2-5.4)
[2019-06-09 16:30] LABS: BUN Creatinine Ratio 14.5 (10-20); Creatinine Clr Calc Pharmacy 89.4 ml/min; Est GFR (African American) 122.2; Est GFR (Non-African American) 105.5; Potassium 3.8 mmol/L (3.5-5.1)
[2019-06-09 16:51] LABS: Tobramycin Trough 2.2 mcg/ml (0-2)
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
[2019-06-09] MEDS ORDERED: TRIAMCINOLONE ACET 0.1% CR 15 GM TUBE TOP PRN (20:08)
[2019-06-09] MEDS ORDERED: ACETAMINOPHEN 325 MG TAB PO PRN (20:08)
[2019-06-09] MEDS ORDERED: LEVALBUTEROL HCL 0.63 MG/3 ML NEB INH PRN (20:08)
[2019-06-09] MEDS ORDERED: BENZTROPINE MESYLATE 1 MG/ML 2 ML AMP IM PRN (20:08)
[2019-06-09] MEDS ORDERED: NYSTATIN/TRIAMCIN OINT 15 GM TUBE EXT PRN (20:08)
[2019-06-09] MEDS ORDERED: PROMETHAZINE HCL INJ 25 MG/ML 1 ML VIAL IM PRN (20:08)
[2019-06-09] MEDS ORDERED: POLYETHYLENE (MIRALAX) 17 GM PACK PO PRN (20:08)
[2019-06-09] MEDS ORDERED: ONDANSETRON 8MG OD TAB PO PRN (20:08)
[2019-06-09] MEDS ORDERED: METOCLOPRAMIDE HCL 10 MG TABLET PO PRN (20:08)
[2019-06-09] MEDS ORDERED: ONDANSETRON INJ 2 MG/ML 2 ML VIAL IV PRN (20:08)
[2019-06-09] MEDS ORDERED: NYSTATIN/TRIAMCIN CR 15 GM TUBE EXT PRN (20:08)
[2019-06-09] MEDS ORDERED: POLYVINYL ALCOHOL TOP SCH (20:08)
[2019-06-09] MEDS ORDERED: BENZTROPINE MESYLATE 1 MG TAB PO PRN (20:08)
[2019-06-09] MEDS ORDERED: CETIRIZINE HCL 10 MG TABLET PO PRN (20:08)
[2019-06-09] MEDS ORDERED: HALOPERIDOL LACTATE 5 MG/ML 1 ML VIAL IM PRN (20:08)
[2019-06-09] MEDS ORDERED: ALBUTEROL HFA 8 GM INHALER INH PRN (20:08)
[2019-06-09] MEDS ORDERED: METHYLENE BLUE TOP SCH (20:08)
[2019-06-09] MEDS ORDERED: GENTIAN VIOLET TOP SCH (20:08)
[2019-06-09] MEDS ORDERED: BENZONATATE 100 MG CAPSULE PO PRN (20:08)
[2019-06-09] MEDS ORDERED: NYSTATIN POWDER 15GM BTL EXT PRN (20:08)
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
[2019-06-09] MEDS ORDERED: QUETIAPINE FUMARATE 100 MG TABLET PO SCH (21:00)
[2019-06-09] MEDS ORDERED: LORATADINE 10 MG TAB PO SCH (21:00)
[2019-06-09] MEDS ORDERED: FAMOTIDINE 40 MG TABLET PO SCH (21:00)
[2019-06-09] MEDS ORDERED: TRAZODONE HCL 50 MG TAB PO SCH (21:00)
[2019-06-09] MEDS: FLUTICASONE/SALMETEROL (ADVAIR) 500/50 INH 14 PUFF INH SCH (21:26)
[2019-06-09] MEDS: HYOSCYAMINE SULFATE 0.125 MG TAB PO SCH (21:26)
[2019-06-09] MEDS: TOPIRAMATE 100 MG TAB PO SCH (21:27)
[2019-06-09] MEDS: APIXABAN 5 MG TABLET PO SCH (21:27)
[2019-06-10] MEDS ORDERED: HEPARIN 100 UNIT/ML 5ML FLUSH ONE (00:14)
[2019-06-10] MEDS: HEPARIN 100 UNIT/ML 5ML FLUSH FLUSH PRN ×2 (05:50→13:55)
[2019-06-10 06:18] LABS: Hemoglobin 10.1 g/dL (12.0-16.0); Mean Corpuscular Hemoglobin 27.7 pg (25-34); Mean Corpuscular Hgb Conc 29.7 g/dL (32-36); Mean Corpuscular Volume 93.2 fL (80-100); Mean Platelet Volume 10.2 fL (7.4-10.4); Platelet Count 239 K/uL (130-400); RDW Coefficient of Variation 16.5 % (11.5-14.5); RDW Standard Deviation 56.5 fL (36.4-46.3); Red Blood Count 3.65 M/uL (4.2-5.4); White Blood Count 4.51 K/uL (4.8-10.8)
[2019-06-10] MEDS: QUETIAPINE FUMARATE 25 MG TABLET PO SCH ×2 (06:28→14:26)
[2019-06-10] MEDS ORDERED: LEVOTHYROXINE SODIUM 88 MCG TABLET PO SCH (06:30)
[2019-06-10 06:55] LABS: Albumin Level 2.7 gm/dl (3.4-5.0); BUN Creatinine Ratio 12.5 (10-20); Calcium 8.4 mg/dl (8.5-10.1); Creatinine Clr Calc Pharmacy 97.1 ml/min; Est GFR (African American) 133.5; Est GFR (Non-African American) 115.2; Potassium 3.5 mmol/L (3.5-5.1)
[2019-06-10 06:57] LABS: Albumin Globulin Ratio 0.6 (0.9-2); Bilirubin,Total 0.3 mg/dl (0.2-1); Globulin 4.2 gm/dl (2.5-4.0); Total Protein 6.9 gm/dl (6.4-8.2)
[2019-06-10 08:17] LABS: Estimated Average Glucose 128 mg/dl; Hemoglobin A1C 6.1 % (4.5-5.6)
[2019-06-10] MEDS ORDERED: PRENATAL VITAMIN SCH (09:00)
[2019-06-10] MEDS ORDERED: CYANOCOBALAMIN 500 MCG TABLET (VITAMIN B-12) PO SCH (09:00)
[2019-06-10] MEDS ORDERED: PANTOprazole 40 MG TAB PO SCH (09:00)
[2019-06-10] MEDS ORDERED: VENLAFAXINE HCL XR 150 MG CAPXR PO SCH (09:00)
[2019-06-10] MEDS ORDERED: VENLAFAXINE HCL XR 37.5 MG CAPXR PO SCH (09:00)
[2019-06-10] MEDS: MEXILETINE HCL 150 MG CAPSULE PO SCH ×2 (09:53→12:53)
[2019-06-10] MEDS: FLUTICASONE/SALMETEROL (ADVAIR) 500/50 INH 14 PUFF INH SCH (09:54)
[2019-06-10] MEDS: TOPIRAMATE 100 MG TAB PO SCH (09:56)
[2019-06-10] MEDS: HYOSCYAMINE SULFATE 0.125 MG TAB PO SCH ×2 (09:56→14:25)
[2019-06-10] MEDS: APIXABAN 5 MG TABLET PO SCH (09:56)
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
[2019-06-10] MEDS ORDERED: PRENATAL VITAMIN 1 TAB PO SCH (11:30)
[2019-06-10] MEDS ORDERED: BREXPIPRAZOLE 4 MG PO SCH (13:00)
[2019-06-10] MEDS ORDERED: [UNRECOGNIZED DRUG - OTHER] IR SCH ×2 (13:00→21:00)
--- NOTE | 2019-06-10 13:35 | Discharge Summary ---
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 The pt has paraplegia secondary to spina bifida and resulting in difficult with pressure ulcerations. She was seein in the ER 2 days ago and was discharged home with tobramycin 585 mg IV daily x 7day for multidrug resistant pseudomonas UTI. PT was set up for [facility] to have trough drawn to check for tobramycin toxicity, which was done yesterday. PHere tobramycin level is 2.20. She unfortunately is suffering from toxicity and will be admitted for further treatment and monitoring, as well as an infectious disease consultation. The patient reports that she does not feel well today. Her main complaints are involving stomach, nausea which has been ongoing throughout this afternoon. She reports that she did eat lunch without any difficulty which included a ham sandwich, chips and pickles. He has a salad sitting at the bedside but has not eaten yet. She has not used any antiemetics today. Patient also reports her head feels "fuzzy" she denies headache, migraine, changes in speech, but reports that her vision has been worsening over the past 2 to 3 days. States that it has been difficult to focus on things which are far away. She denies specific blurred vision, diplopia, reduced peripheral visual lockwood. Denies any other acute complaints currently. Principal Diagnosis Pt is still with the L sided ear fullness like she is "under water", but she overall feels better. She has eaten without issue. She would like to d/c from the hospital [facility]. She was wearing an O2 mask when I came into the room but she was taking a nap just prior and wears O2 for LIZBETH. She was not having SOB, but just forgot to take it off when she woke up. Pt has baseline nausea with PO intake, which she has today. No emesis. She has abd pain related to a hernia that she is to have repaired on as outpt. This is at its usual level. Pt denies fever, chest pain, LE pain or swelling. Discharge Exam Constitutional WD/WN, vitals as above + morbidly obese Eyes normal visual lockwood by confrontation and + anicteric sclerae Neck normal visual inspection and trachea midline Respiratory normal respiratory effort, lungs clear to auscultation Cardiovascular Rate/Rhythm: regular rate and regular rhythm Gastrointestinal (Abdomen) Inspection/Auscultation: abdomen not distended Percussion/Palpation: + abdomen tender (around umbilical hernia region) and abdomen soft Musculoskeletal Head/Neck/Chest: normocephalic and head atraumatic Skin no rashes, warm and dry Neurologic awake; not confused Speech / Cognition: normal speech Psychiatric A+Ox3, euthymic affect Discharge Data Allergies Allergy/AdvReac Type Severity Reaction Status Date / Time chlorhexidine Allergy Severe Rash Verified 06/09/19 16:36 adhesive Allergy Intermediate TAPE- HIVES Verified 06/09/19 16:36 ceftriaxone Allergy Intermediate rash, Has Verified 06/09/19 16:36 tolerated cefepime and Zerbaxa Cipro Allergy Intermediate hives Verified 01/11/18 17:31 ciprofloxacin Allergy Intermediate hives Verified 06/09/19 16:36 clindamycin Allergy Intermediate Redness/Itc Verified 06/09/19 16:36 hiness imipenem Allergy Intermediate PT REPORTS Verified 06/09/19 16:36 ITCHING levofloxacin Allergy Intermediate rash,HEARD Verified 06/09/19 16:36 VOICES linezolid Allergy Intermediate rash Verified 06/09/19 16:36 nitrofurantoin Allergy Intermediate rash and Verified 06/09/19 16:36 hives trimethoprim Allergy Intermediate Hives Verified 06/09/19 16:36 vancomycin Allergy Intermediate rash Verified 06/09/19 16:36 amikacin Allergy Unknown PER DR Verified 06/09/19 16:36 ROBINS,RXN WAS TO ZOSYN NOT AMKrash;hives Bactrim Allergy Unknown Hives Verified 01/11/18 17:31 sulfamethoxazole Allergy Unknown Hives Verified 06/09/19 16:36 buspirone AdvReac Severe HALLUCINATI Verified 06/09/19 16:36 ONS piperacillin AdvReac Intermediate SEVERE Verified 06/09/19 16:36 RASH, HIVES tazobactam AdvReac Intermediate SEVERE Verified 06/09/19 16:36 RASH, HIVES tobramycin AdvReac Unknown Unknown Verified 06/10/19 15:37 latex AdvReac Unknown Verified 06/09/19 16:36 Consultations 06/09/19 17:41 ED Decision to Admit Stat 06/09/19 20:08 Consult Case Management - Discharge Planning Routine Consult Infectious Diseases Routine Hospital Course (1) Spina bifida: - Chronic, continue sling and maddison lift - Follow (2) Neurogenic bladder: (3) Pseudomonas urinary tract infection: - Pt had been set up for at home tobramycin infusions with multidrug resistant pneudomonas UTI starting on 06/07/19. She received 3 days of treatment so far, including infusion today. Her tobramycin trough level drawn today around 1500 was elevated and she was notified via phone for toxicity with a level of 8.9 and told to come to the ER. Here her level is recorded as 2.20. - held tobramycin on admission - No WBC, afebrile other VSS. ID recs that pt had a full course of tx if this was an acute UTI. Recs for no further abx and monitor for resolution of ototoxicity - Last time chronic indwelling arango changed 06/04/2019, flush catheter BID while admitted has been doing this at home, urine appears clear with minimal sediment at this time. Pt still with complaints of discomfort. - Follows with Dr. Washington with urology as outpt--has had plans for f/u cystoscopy, however this has been put on hold several times for active infection (4) Prediabetes: - 5.8 in Spring 2018 A1c 6.1 (5) Morbid obesity: - BMI 75.8 - Significantly complicates her other comorbidities, HH diet (6) Constipation: -Patient currently having loose stools, diarrhea likely secondary to tobramycin administration, recently had issues with constipation. Regimen prn (7) Asthma: - Stable, no acute exacerbation - continue Advair, levalbuterol nebs prn (8) Anxiety: - Continue medications as above (9) Migraines: - Hx of such, continue botox, (10) Hypothyroidism: - Cont levothyroxine 88 mcg daily (11) Schizoaffective disorder: (12) Bipolar 1 disorder: - Continue Rexulti 4 mg QAM, haldol 2.5 mg BID prn, Seroquel 100 mg HS and 12.5 mg BID, topamax 200 mg BID, trazodone 150 mg HS, Effexor 187.5 mg daily, hydroxyzine 25 mg QID (13) S/P bilateral BKA (below knee amputation): - Follows with wound care as an outpatient (14) Vitamin B12 deficiency: - Continue supplementation (15) Sleep apnea: - Continue O2 via NC HS, does not use cpap (16) Iron deficiency anemia: - Hgb stable currently around her baseline, 11.5 on admission (17) History of pulmonary embolism: - Hx of such in 2016 initially then followed by one in Spring 2018. - Continue on eliquis 5 mg BID (18) Sacral decubitus ulcer: -Wound consulted, has been following as an outpatient -Attempt to keep area dry while menstruating/having issues with diarrhea (19) DVT prophylaxis: - Eliquis BID CODE: Full Total Time Total Time Spent Total Time Spent (In Minutes): >30 Discharge Plan Discharge Items Patient Disposition: Home - Home Health Services Reason For Visit: MDR UTI Discharge Diagnosis: Tobramycin toxicity Non-emergency contact: Primary Care Provider Call non-emergency contact if: your symptoms worsen, your pain is not controlled and your pain is worsening Follow-up/Referrals: Gela Boone MD [Primary Care Provider] - Diet: Heart Healthy Addtl Attending Provider Instructions: You should follow up with Dr. Robins in 2 weeks. You should follow up with Dr. Washington as we are able to schedule you. If you leave prior to case management arranging an appt for you, they will call you with that information. Call the hospital tomorrow if you have not heard back from them by tomrrow afternoon. Pending Studies at Discharge: No Stand-Alone Forms: My [facility] [employer], Smoking Cessation Medications and DC Order Prescriptions: Continued quetiapine 100 mg tablet 100 mg PO HS RF: 0 Eliquis 5 mg tablet 5 mg PO BID Qty: 180 RF: 3 fluticasone propion-salmeterol [Advair Diskus] 500-50 mcg/dose blister with device 1 inh INHALATION BID Qty: 60 RF: 5 levalbuterol HCl [Xopenex] 0.63 mg/3 mL solution for nebulization 0.63 mg INHALATION Q6H PRN (Reason: Shortness Of Breath) Qty: 36 RF: 1 topiramate 200 mg capsule,sprinkle,ER 24hr 200 mg PO BID 30 Days Qty: 60 RF: 5 nystatin-triamcinolone 100,000-0.1 unit/g-% cream 1 appln TOP TID PRN (Reason: fungal dermatitis) Qty: 15 RF: 2 miscellaneous medical supply misc 1 ea MS .COMPLEX Qty: 1 RF: 0 Hydrofera Blue 4 X 4 " bandage 1 ea TOP UD RF: 0 triamcinolone acetonide 0.1 % cream 1 appln topical TID PRN (Reason: Itching) RF: 0 nystatin-triamcinolone 100,000-0.1 unit/gram-% ointment 1 appln topical TID PRN (Reason: AFFECTED SKIN) Qty: 1 RF: 0 benzonatate 200 mg capsule 200 mg PO TID PRN (Reason: cough) Qty: 30 RF: 1 venlafaxine 150 mg capsule,extended release 24hr 150 mg PO QAM RF: 0 mexiletine 150 mg capsule 300 mg PO TIDM RF: 0 trazodone 150 mg tablet 150 mg PO HS RF: 0 metoclopramide HCl [Reglan] 10 mg tablet 10 mg PO BID MDD 2x/wk PRN (Reason: acute headaches) RF: 0 Multi 27-800 mg-mcg Tablet 1 tab PO QDL RF: 0 Botox 100 unit Recon Soln 1 dose IM DIRECTED RF: 0 albuterol sulfate [ProAir HFA] 90 mcg/actuation HFA aerosol inhaler 2 puffs INH Q6 PRN (Reason: shortness of breath or wheezing) RF: 0 nystatin 100,000 unit/gram Powder 1 applic TOPICAL TID PRN (Reason: Skin Irritation) RF: 0 polyethylene glycol 3350 [Miralax] 17 gram/dose Powder 17 g PO TID PRN (Reason: Constipation) RF: 0 venlafaxine 37.5 mg capsule,extended release 24hr 37.5 mg PO QAM RF: 0 levothyroxine 88 mcg tablet 88 mcg PO QAM RF: 0 cyanocobalamin (vitamin B-12) [Vitamin B-12] 1,000 mcg Tablet 1,000 mcg PO QAM RF: 0 dihydroergotamine [D.H.E.45] 1 mg/mL Solution 0 mg IM DIRECTED RF: 0 benztropine 1 mg Tablet 1 mg PO TID PRN (Reason: Migraine Headache) RF: 0 hyoscyamine sulfate 0.125 mg tablet 0.125 mg PO TID RF: 0 diphenhydramine HCl [Benadryl] 25 mg Capsule 25 mg PO QID PRN (Reason: Allergic Symptoms) RF: 0 Rexulti 2 mg tablet 4 mg PO QAM RF: 0 hydroxyzine HCl 25 mg tablet 25 mg PO QID PRN (Reason: Anxiety) RF: 0 ondansetron 8 mg tablet,disintegrating 8 mg PO Q6H PRN (Reason: Nausea) RF: 0 famotidine 40 mg Tablet 40 mg PO HS RF: 0 pantoprazole 40 mg tablet,delayed release (DR/EC) 40 mg PO QAM RF: 0 cetirizine [Zyrtec] 10 mg tablet 10 mg PO BID PRN (Reason: Allergies or Antibiotics) RF: 0 promethazine 25 mg/mL Solution 12.5 mg IM Q6H PRN (Reason: Nausea) RF: 0 benztropine [Cogentin] 2 mg/2 mL Solution 1 mg IM DAILY PRN (Reason: Haldol Reaction) RF: 0 haloperidol lactate 5 mg/mL Solution 2.5 mg IM BID MDD 2x/wk PRN (Reason: acute headaches) RF: 0 loratadine [Claritin] 10 mg Tablet 10 mg PO HS RF: 0 Renacidin 1,980.6 mg-59.4 mg-980.4mg/30mL solution 0 ml UD RF: 0 quetiapine 25 mg tablet 12.5 mg PO .BID @0700 AND @1400 RF: 0 Discontinued daptomycin 500 mg Recon Soln 500 mg IV DAILY RF: 0 Discharge Orders: Discharge Order (Routine); Ordered 06/10/19 Ordered By: Mamta Layton/Other Patient Handouts: A1C Admission Data Admit Date/Time: 06/09/19 18:35 Attending Provider: Mamta Tracy Admit Provider: Mamta Tracy Primary Care Provider: Gela Boone Other Providers: Mamta Tracy ; Connie Robins Other Interventions: Discharge Summary Assessment (RN) Last Done: 06/10/19 13:45 DC Date/Time DO NOT enter until pt leaves facility: 06/10/19 14:51
== END 2019-06-10 14:51 | disposition home health service (06) ==
LOC: ED 15:23 → INTOOBSV 18:25 → 3W 18:35

== ENCOUNTER 2019-06-20 14:19 | Inpatient (IN) ==
[2019-06-20] MEDS ORDERED: SODIUM CHLORIDE 0.9% 1000ML 1,000 ML IV STA (16:26)
[2019-06-20 17:30] LABS: Hematocrit (blood only) 34.7 % (37-47); Hemoglobin 10.8 g/dL (12.0-16.0); Mean Corpuscular Hemoglobin 27.9 pg (25-34); Mean Corpuscular Hgb Conc 31.1 g/dL (32-36); Mean Corpuscular Volume 89.7 fL (80-100); Mean Platelet Volume 10.2 fL (7.4-10.4); Platelet Count 216 K/uL (130-400); RDW Coefficient of Variation 16.5 % (11.5-14.5); RDW Standard Deviation 53.7 fL (36.4-46.3); Red Blood Count 3.87 M/uL (4.2-5.4); White Blood Count 7.25 K/uL (4.8-10.8)
[2019-06-20] MEDS ORDERED: DEXTROSE 5% IV ONE (17:30)
[2019-06-20] MEDS ORDERED: TOBRAMYCIN SULFATE IV ONE (17:30)
[2019-06-20] MEDS ORDERED: DAPTOmycin 425 MG in SYRINGE 0 ML IV STA (17:33)
[2019-06-20 18:03] LABS: Alanine Aminotransferase 34 U/L (12-78); Albumin Level 2.9 gm/dl (3.4-5.0); Aspartate Aminotransferase 13 U/L (15-37); Blood Urea Nitrogen 14 mg/dl (7-18); Calcium 8.8 mg/dl (8.5-10.1); Carbon Dioxide 21 mmol/L (21-32); Chloride 108 mmol/L (98-107); Est GFR (African American) 114.8; Est GFR (Non-African American) 99.1; Glucose 162 mg/dl (70-99); Potassium 3.9 mmol/L (3.5-5.1); Sodium 136 mmol/L (136-145)
[2019-06-20 18:06] LABS: Albumin Globulin Ratio 0.6 (0.9-2); Alkaline Phosphatase 121 U/L (45-117); Bilirubin,Total 0.3 mg/dl (0.2-1); Globulin 4.6 gm/dl (2.5-4.0); Total Protein 7.5 gm/dl (6.4-8.2)
[2019-06-20 18:10] LABS: Basophils # (auto) 0.02 K/uL (0-0.2); Basophils % (auto) 0.3 %; Eosinophils # (auto) 0.07 K/uL (0-0.5); Immature Granulocytes # (auto) 0.01 K/uL (0.00-0.02); Immature Granulocytes % (auto) 0.1 %; Lymphocytes # (auto) 0.41 K/uL (1.2-3.4); Lymphocytes % (auto) 5.7 %; Monocytes # (auto) 0.49 K/uL (0.11-0.59); Monocytes % (auto) 6.8 %; Neutrophils # (auto) 6.25 K/uL (1.4-6.5); Neutrophils % (auto) 86.1 %
[2019-06-20 18:28] LABS: Appearance Urine Turbid (Clear); Bacteria Urine Automated Negative (Negative); Bilirubin Urine Negative (Negative); Blood Urine 3+ (Negative); Color Urine Dark Yellow; Epithelial Cell Urine Auto >30 /lpf (0-5); Glucose Urine UA Negative (Negative); Ketones Urine Negative (Negative); Leukocyte Esterase Urine 3+ (Negative); Nitrite Urine Positive (Negative); Protein Urine 1+ (Negative); RBC Urine Automated >30 /hpf (0-4); Specific Gravity Urine 1.022 (1.000-1.030); Urobilinogen Urine Negative (Negative); WBC Urine Automated >30 /hpf (0-5); pH Urine 6.5 (4.5-7.5)
[2019-06-20] MEDS ORDERED: CETIRIZINE HCL 10 MG TABLET PO ONE (19:30)
[2019-06-20] MEDS ORDERED: ACETAMINOPHEN 325 MG TAB PO STA (19:30)
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
[2019-06-20] MEDS ORDERED: BENZONATATE 100 MG CAPSULE PO PRN (20:26)
[2019-06-20] MEDS ORDERED: POLYETHYLENE (MIRALAX) 17 GM PACK PO PRN (20:26)
[2019-06-20] MEDS ORDERED: METOCLOPRAMIDE HCL 10 MG TABLET PO PRN (20:26)
[2019-06-20] MEDS ORDERED: NYSTATIN/TRIAMCIN OINT 15 GM TUBE EXT PRN (20:26)
[2019-06-20] MEDS ORDERED: LIDOCAINE HCL 5% OINT 30 GM TUBE TOP PRN (20:26)
[2019-06-20] MEDS ORDERED: ALBUTEROL HFA 8 GM INHALER INH PRN ×2 (20:26→20:58)
[2019-06-20] MEDS ORDERED: HALOPERIDOL LACTATE 5 MG/ML 1 ML VIAL IM PRN (20:26)
[2019-06-20] MEDS ORDERED: MAGNESIUM HYDROXIDE SUSP 30 ML UDC PO PRN (20:26)
[2019-06-20] MEDS ORDERED: NYSTATIN POWDER 15GM BTL EXT PRN (20:26)
[2019-06-20] MEDS ORDERED: GLUCOSE 10 TABS/TUBE PO PRN (20:26)
[2019-06-20] MEDS ORDERED: METHYLENE BLUE TOP SCH (20:26)
[2019-06-20] MEDS ORDERED: GENTIAN VIOLET TOP SCH (20:26)
[2019-06-20] MEDS ORDERED: POLYVINYL ALCOHOL TOP SCH (20:26)
[2019-06-20] MEDS ORDERED: PROMETHAZINE HCL INJ 25 MG/ML 1 ML VIAL IM PRN (20:26)
[2019-06-20] MEDS ORDERED: GLUCAGON FOR INJ 1 MG VIAL SQ PRN (20:26)
[2019-06-20] MEDS ORDERED: CARBOHYDRATES FOR HYPOGLYCEMIA PO PRN (20:26)
[2019-06-20] MEDS ORDERED: BENZTROPINE MESYLATE 1 MG/ML 2 ML AMP IM PRN (20:26)
[2019-06-20] MEDS ORDERED: CETIRIZINE HCL 10 MG TABLET PO PRN (20:26)
[2019-06-20] MEDS ORDERED: TRIAMCINOLONE ACET 0.1% CR 15 GM TUBE TOP PRN (20:26)
[2019-06-20] MEDS ORDERED: BENZTROPINE MESYLATE 1 MG TAB PO PRN (20:26)
[2019-06-20] MEDS ORDERED: GLUCOSE 40% GEL 15 GM TUBE PO PRN (20:26)
[2019-06-20] MEDS ORDERED: DEXTROSE 50% 50 ML SYRINGE IV PRN (20:26)
[2019-06-20] MEDS ORDERED: LEVALBUTEROL HCL 0.63 MG/3 ML NEB INH PRN (20:26)
[2019-06-20] MEDS ORDERED: BOTULINUM TOXIN TYPE A 100 UNIT VIAL IM SCH (20:26)
[2019-06-20] MEDS ORDERED: TOPIRAMATE 200 MG PO SCH (21:00)
[2019-06-20] MEDS: INSULIN ASPART 100 UNITS/ML 3 ML PEN SC SCH (22:16)
[2019-06-20] MEDS: FAMOTIDINE 40 MG TABLET PO SCH (22:17)
[2019-06-20] MEDS: TRAZODONE HCL 50 MG TAB PO SCH (22:17)
[2019-06-20] MEDS: HYOSCYAMINE SULFATE 0.125 MG TAB PO SCH (22:18)
[2019-06-20] MEDS: QUETIAPINE FUMARATE 100 MG TABLET PO SCH (22:18)
[2019-06-20] MEDS: APIXABAN 5 MG TABLET PO SCH (22:18)
[2019-06-20] MEDS: LORATADINE 10 MG TAB PO SCH (22:21)
[2019-06-20] MEDS: HYDROCODONE/ACETAMOPHEN 5/325MG TAB PO PRN (23:53)
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
[2019-06-21] MEDS: LEVOTHYROXINE SODIUM 88 MCG TABLET PO SCH (04:58)
[2019-06-21] MEDS: HEPARIN 100 UNIT/ML 5ML FLUSH FLUSH PRN ×3 (05:17→09:27)
[2019-06-21 06:24] LABS: Hematocrit (blood only) 32.6 % (37-47); Hemoglobin 10.2 g/dL (12.0-16.0); Mean Corpuscular Hgb Conc 31.3 g/dL (32-36); Mean Corpuscular Volume 89.6 fL (80-100); Mean Platelet Volume 10.5 fL (7.4-10.4); Platelet Count 208 K/uL (130-400); RDW Coefficient of Variation 16.3 % (11.5-14.5); RDW Standard Deviation 53.9 fL (36.4-46.3); Red Blood Count 3.64 M/uL (4.2-5.4); White Blood Count 7.07 K/uL (4.8-10.8)
[2019-06-21 07:04] LABS: BUN Creatinine Ratio 19.9 (10-20); Calcium 7.8 mg/dl (8.5-10.1); Creatinine Clr Calc Pharmacy 94.9 ml/min; Est GFR (African American) 132.9; Est GFR (Non-African American) 114.6; Potassium 3.3 mmol/L (3.5-5.1)
[2019-06-21 07:05] LABS: Basophils # (auto) 0.03 K/uL (0-0.2); Basophils % (auto) 0.4 %; Eosinophils # (auto) 0.03 K/uL (0-0.5); Eosinophils % (auto) 0.4 %; Immature Granulocytes # (auto) 0.03 K/uL (0.00-0.02); Immature Granulocytes % (auto) 0.4 %; Lymphocytes # (auto) 0.77 K/uL (1.2-3.4); Lymphocytes % (auto) 10.9 %; Monocytes # (auto) 0.46 K/uL (0.11-0.59); Monocytes % (auto) 6.5 %; Neutrophils # (auto) 5.75 K/uL (1.4-6.5); Neutrophils % (auto) 81.4 %; Toxic Vacuolation 1+
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
[2019-06-21] MEDS: HYOSCYAMINE SULFATE 0.125 MG TAB PO SCH ×3 (09:41→20:52)
[2019-06-21] MEDS: CYANOCOBALAMIN 500 MCG TABLET (VITAMIN B-12) PO SCH (09:41)
[2019-06-21] MEDS: VENLAFAXINE HCL XR 150 MG CAPXR PO SCH (09:42)
[2019-06-21] MEDS: PANTOprazole 40 MG TAB PO SCH (09:42)
[2019-06-21] MEDS: MEXILETINE HCL 150 MG CAPSULE PO SCH ×3 (09:42→17:48)
[2019-06-21] MEDS: VENLAFAXINE HCL XR 37.5 MG CAPXR PO SCH (09:42)
[2019-06-21] MEDS: QUETIAPINE FUMARATE 25 MG TABLET PO SCH ×2 (09:43→14:39)
[2019-06-21] MEDS: APIXABAN 5 MG TABLET PO SCH ×2 (09:44→20:52)
[2019-06-21] MEDS: FLUTICASONE/VILANTEROL 200/25MCG 14 PUFFS/INHALER INH SCH (09:44)
[2019-06-21] MEDS: INSULIN ASPART 100 UNITS/ML 3 ML PEN SC SCH ×4 (09:45→20:50)
[2019-06-21] MEDS: ONDANSETRON 8MG OD TAB PO PRN (09:48)
[2019-06-21] MEDS ORDERED: POTASSIUM CHLORIDE 20 MEQ TABCR PO STA (10:50)
--- NOTE | 2019-06-21 12:23 | Hospitalist Progress Note ---
Date of Service June 21, 2019 Assessment & Plan (1) Septicemia: Patient here with fevers, tachycardia, UTI, and now with proven MRSA bacteremia -Continue daptomycin -Has been volume resuscitated and is improving Tylenol as needed for fevers Checking echo for valvular vegetation Infectious disease consultation appreciated -Follow repeat blood cultures until sterile (2) MRSA bacteremia: As above Will need prolonged antibiotics (3) Dysuria: Hx of recurrent UTI UA on 06/19 + for leuk est, neg nitrites with cx noted for 3 organisms WBC WNL, febrile, with sepsis and bacteremia as above UA abnormal here, catheter was changed in the ED upon admission and specimen drawn was from clean cath -Continue daptomycin -Follow urine culture (4) Sacral decubitus ulcer: WCC c/s appreciated-continue offloading pressure and dressings as recommended (5) History of pulmonary embolism: Continue Eliquis (6) Bipolar 1 disorder: continue home meds which include benztropine 1 mg 3 times daily, haloperidol 2.5 mg IM twice daily as needed, hydroxyzine 25 mg 4 times daily as needed, mexiletine 300 mg p.o. 3 times daily, Seroquel 100 mg p.o. nightly, Topamax twice a day, trazodone 150 mg at bedtime, and venlafaxine 187.5 mg daily (7) Schizoaffective disorder: continue home meds as above (8) Hypokalemia: Replace potassium Follow BMP (9) Hypothyroidism: TSH normal recently at 2.1 Continue home levothyroxine 88 mcg daily (10) Nocturnal hypoxemia: Continue chronic O2 at bedtime (11) Prediabetes: SSI PRN (12) PTSD (post-traumatic stress disorder): continue home meds (13) Asthma: continue home albuterol as needed, fluticasone/Vilanterol 1 puff once daily No acute exacerbation (14) Anxiety: continue home meds (15) Insomnia: continue home meds As above (16) DVT prophylaxis: Eliquis Disposition-remain hospitalized for septicemia Subjective Patient continues to have fevers and feels sweaty. She was having some heartburn later in the morning. Denies shortness of breath. Lower abdominal pain is improving now. Review of Systems Review of Systems: All systems reviewed & are unremarkable except as noted in HPI & below Physical Exam Constitutional: WD/WN, vitals as above + morbidly obese Eyes: PERRL, conjunctivae normal, anicteric sclerae ENMT: external ear and nose normal, oropharynx normal Neck: trachea midline, no thyromegaly Respiratory: normal respiratory effort, lungs clear to auscultation Auscultation: + diminished lung sounds (Diminished throughout due to body habit us) Cardiovascular: RRR, no murmur, no edema Chest (Breasts): Chest: normal inspection of chest Gastrointestinal (Abdomen): normal bowel sounds, soft, nontender, no hepatosplenomegaly Musculoskeletal: Extremities: + 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), no cyanosis and no clubbing Skin: no rashes, warm and dry Neurologic: moves all extremities and awake; no focal motor deficits Psychiatric: A+Ox3, euthymic affect Genitourinary: Suprapubic catheter in place Lymphatic: no lymphedema Results & Data Vital Signs (Past 12 Hours) Vital Signs Temp Pulse Resp BP Pulse Ox 06/21/19 07:57 37.0 C 93 H 20 103/72 96 06/21/19 04:56 37.1 C Laboratory Results Labs reviewed Blood cultures 2/2 sets with MRSA PG Care Time/CCT Total # of Minutes Spent Total Time Spent with Patient: Total time spent is greater than 50% in coordination of care (as documented) at patient's floor/unit and/or counseling patient: (1) Insomnia Insomnia type: unspecified Qualified Code(s): G47.00 - Insomnia, unspecified (2) Hypothyroidism Hypothyroidism type: unspecified Qualified Code(s): E03.9 - Hypothyroidism, unspecified (3) Schizoaffective disorder Schizoaffective disorder type: bipolar Qualified Code(s): F25.0 - Schizoaffective disorder, bipolar type (4) Asthma Asthma complication type: uncomplicated Asthma persistence: persistent Asthma severity: moderate Qualified Code(s): J45.40 - Moderate persistent asthma, uncomplicated
[2019-06-21] MEDS: PRENATAL VITAMIN 1 TAB PO SCH (12:38)
[2019-06-21] MEDS: ACETAMINOPHEN 1,000 MG/100 ML VIAL IV PRN ×2 (12:53→23:06)
[2019-06-21] MEDS ORDERED: ALUMINUM/MAGNESIUM SUSP 18 ML, LIDOCAINE HCL VISCOUS 2% 6 ML, BARCODE IDENTIFIER 1 EA PO ONE (14:18)
[2019-06-21] MEDS ORDERED: TOPIRAMATE 200 MG PO SCH (17:00)
[2019-06-21] MEDS: DAPTOmycin 425 MG in SYRINGE 0 ML IV SCH (17:47)
[2019-06-21] MEDS: TOPIRAMATE 200 MG PO SCH (18:08)
[2019-06-21] MEDS: TRAZODONE HCL 50 MG TAB PO SCH (20:52)
[2019-06-21] MEDS: QUETIAPINE FUMARATE 100 MG TABLET PO SCH (20:52)
[2019-06-21] MEDS: LORATADINE 10 MG TAB PO SCH (20:52)
[2019-06-21] MEDS: FAMOTIDINE 40 MG TABLET PO SCH (20:53)
[2019-06-21] MEDS: HYDROCODONE/ACETAMOPHEN 5/325MG TAB PO PRN (23:31)
[2019-06-22] MEDS: LEVOTHYROXINE SODIUM 88 MCG TABLET PO SCH (06:42)
[2019-06-22] MEDS: PANTOprazole 40 MG TAB PO SCH (09:05)
[2019-06-22] MEDS: APIXABAN 5 MG TABLET PO SCH ×2 (09:05→20:22)
[2019-06-22] MEDS: MEXILETINE HCL 150 MG CAPSULE PO SCH ×3 (09:05→16:22)
[2019-06-22] MEDS: QUETIAPINE FUMARATE 25 MG TABLET PO SCH ×2 (09:06→13:11)
[2019-06-22] MEDS: CYANOCOBALAMIN 500 MCG TABLET (VITAMIN B-12) PO SCH (09:06)
[2019-06-22] MEDS: VENLAFAXINE HCL XR 37.5 MG CAPXR PO SCH (09:06)
[2019-06-22] MEDS: VENLAFAXINE HCL XR 150 MG CAPXR PO SCH (09:07)
[2019-06-22] MEDS: BREXPIPRAZOLE 4 MG PO SCH (09:07)
[2019-06-22] MEDS: TOPIRAMATE 200 MG PO SCH ×2 (09:08→16:20)
[2019-06-22] MEDS: FLUTICASONE/VILANTEROL 200/25MCG 14 PUFFS/INHALER INH SCH (09:08)
[2019-06-22] MEDS: INSULIN ASPART 100 UNITS/ML 3 ML PEN SC SCH ×4 (09:10→21:05)
[2019-06-22] MEDS: HYOSCYAMINE SULFATE 0.125 MG TAB PO SCH ×3 (09:42→20:21)
[2019-06-22 10:28] LABS: Hematocrit (blood only) 31.3 % (37-47); Hemoglobin 9.9 g/dL (12.0-16.0); Mean Corpuscular Hemoglobin 28.1 pg (25-34); Mean Corpuscular Hgb Conc 31.6 g/dL (32-36); Mean Corpuscular Volume 88.9 fL (80-100); Mean Platelet Volume 10.4 fL (7.4-10.4); Platelet Count 180 K/uL (130-400); RDW Coefficient of Variation 16.5 % (11.5-14.5); RDW Standard Deviation 53.5 fL (36.4-46.3); Red Blood Count 3.52 M/uL (4.2-5.4); White Blood Count 6.58 K/uL (4.8-10.8)
[2019-06-22 10:51] LABS: Basophils # (auto) 0.02 K/uL (0-0.2); Basophils % (auto) 0.3 %; Eosinophils # (auto) 0.18 K/uL (0-0.5); Eosinophils % (auto) 2.7 %; Immature Granulocytes # (auto) 0.02 K/uL (0.00-0.02); Immature Granulocytes % (auto) 0.3 %; Lymphocytes # (auto) 0.97 K/uL (1.2-3.4); Lymphocytes % (auto) 14.7 %; Monocytes # (auto) 0.55 K/uL (0.11-0.59); Monocytes % (auto) 8.4 %; Neutrophils # (auto) 4.84 K/uL (1.4-6.5); Neutrophils % (auto) 73.6 %
[2019-06-22 10:56] LABS: Albumin Level 2.4 gm/dl (3.4-5.0); BUN Creatinine Ratio 14.3 (10-20); Calcium 8.4 mg/dl (8.5-10.1); Est GFR (African American) 111.4; Est GFR (Non-African American) 96.1; Magnesium 1.9 mg/dl (1.8-2.4); Potassium 3.2 mmol/L (3.5-5.1)
[2019-06-22 10:59] LABS: Albumin Globulin Ratio 0.5 (0.9-2); Bilirubin,Total 0.2 mg/dl (0.2-1); Globulin 4.6 gm/dl (2.5-4.0)
[2019-06-22] MEDS ORDERED: POTASSIUM CHLORIDE 20 MEQ TABCR PO STA (12:16)
[2019-06-22] MEDS: PRENATAL VITAMIN 1 TAB PO SCH (13:08)
--- NOTE | 2019-06-22 15:05 | Hospitalist Progress Note ---
Date of Service June 22, 2019 Assessment & Plan (1) Septicemia: Patient here with fevers, tachycardia, UTI, and now with proven MRSA bacteremia Repeat blood cultures persistently positive -Continue daptomycin -Has been volume resuscitated Tylenol as needed for fevers - echo for valvular vegetation-very difficult study due to body habitus-cannot rule out vegetation -May need LENNY-we will discuss with infectious disease versus treating empirically for 6 weeks -She does have a [employer] shunt in place and a right-sided Port-A-Cath which does not appear infected Infectious disease consultation appreciated -Follow repeat blood cultures until sterile (2) MRSA bacteremia: As above Will need prolonged antibiotics (3) UTI (urinary tract infection): Hx of recurrent UTI with suprapubic catheter-changed out here in the ER by her mom on the day of admission -Start home Renacidin bladder wash at bedtime and gets bladder flushes of her Meade catheter every morning UA on 06/19 + for leuk est, neg nitrites with cx noted for 3 organisms WBC WNL, febrile, with sepsis and bacteremia as above UA abnormal here, catheter was changed in the ED upon admission and specimen drawn was from clean cath -Continue daptomycin -Follow urine culture-growing MRSA and Streptococcus species (4) Dysuria: As above and UTI (5) Sacral decubitus ulcer: WCC c/s appreciated-continue offloading pressure and dressings as recommended (6) History of pulmonary embolism: Continue Eliquis (7) Bipolar 1 disorder: continue home meds which include benztropine 1 mg 3 times daily, haloperidol 2.5 mg IM twice daily as needed, hydroxyzine 25 mg 4 times daily as needed, mexiletine 300 mg p.o. 3 times daily, Seroquel 100 mg p.o. nightly, Topamax twice a day, trazodone 150 mg at bedtime, and venlafaxine 187.5 mg daily (8) Schizoaffective disorder: continue home meds as above (9) Hypokalemia: Replace potassium -Med rec from home apparently left off home potassium twice a day-Mom is unsure of dose -Add on potassium 40 mEq p.o. twice daily Follow BMP (10) Hypothyroidism: TSH normal recently at 2.1 Continue home levothyroxine 88 mcg daily (11) Nocturnal hypoxemia: Continue chronic O2 at bedtime (12) Prediabetes: Hemoglobin A1c 6.1% With hyperglycemia here Previously on metformin and went off of it due to diarrhea Patient is wanting to go on insulin at home -Consult cosmetology educator -Continue SSI PRN (13) PTSD (post-traumatic stress disorder): continue home meds (14) Asthma: continue home albuterol as needed, fluticasone/Vilanterol 1 puff once daily No acute exacerbation (15) Anxiety: continue home meds (16) Insomnia: continue home meds As above (17) DVT prophylaxis: Eliquis Disposition-remain hospitalized for septicemia Subjective Patient reports feeling shaky in the hands and lightheaded but feels that she always reports feeling lightheaded. Has no abdominal pains. Not short of breath. Afebrile. Mom relays history on the phone that the patient is supposed to be on potassium pills twice daily and this is not on her home med list. She also would like her to have her nighttime Renacidin bladder washes Review of Systems Review of Systems: All systems reviewed & are unremarkable except as noted in HPI & below Physical Exam Constitutional: WD/WN, vitals as above + morbidly obese Eyes: + anicteric sclerae ENMT: external ear and nose normal, oropharynx normal Neck: trachea midline, no thyromegaly Respiratory: normal respiratory effort, lungs clear to auscultation Auscultation: + diminished lung sounds (Diminished throughout due to body habitus) Cardiovascular: RRR, no murmur, no edema Chest (Breasts): Chest: normal inspection of chest Gastrointestinal (Abdomen): normal bowel sounds, soft, nontender, no hepatosplenomegaly Musculoskeletal: Extremities: + 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), no cyanosis and no clubbing Skin: no rashes, warm and dry Neurologic: moves all extremities and awake; no focal motor deficits Psychiatric: A+Ox3, euthymic affect Lymphatic: no lymphedema Results & Data Vital Signs (Past 12 Hours) Vital Signs Temp Pulse Resp BP Pulse Ox 06/22/19 07:45 36.4 C L 84 18 108/71 97 Laboratory Results Labs reviewed, blood cultures continue to be positive for MRSA Potassium 3.2 WBC count 6 PG Care Time/CCT Total # of Minutes Spent Total Time Spent with Patient: Total time spent is greater than 50% in coordination of care (as documented) at patient's floor/unit and/or counseling patient: (1) Insomnia Insomnia type: unspecified Qualified Code(s): G47.00 - Insomnia, unspecified (2) Hypothyroidism Hypothyroidism type: unspecified Qualified Code(s): E03.9 - Hypothyroidism, unspecified (3) Schizoaffective disorder Schizoaffective disorder type: bipolar Qualified Code(s): F25.0 - Schizoaffective disorder, bipolar type (4) Asthma Asthma complication type: uncomplicated Asthma persistence: persistent Asthma severity: moderate Qualified Code(s): J45.40 - Moderate persistent asthma, uncomplicated (5) UTI (urinary tract infection) Hematuria presence: without hematuria Urinary tract infection type: acute cystitis Qualified Code(s): N30.00 - Acute cystitis without hematuria
[2019-06-22] MEDS: ACETAMINOPHEN 500 MG TAB PO PRN (16:19)
[2019-06-22] MEDS: DAPTOmycin 425 MG in SYRINGE 0 ML IV SCH (18:12)
[2019-06-22] MEDS: HEPARIN 100 UNIT/ML 5ML FLUSH FLUSH PRN (18:13)
[2019-06-22] MEDS: POTASSIUM CHLORIDE 20 MEQ TABCR PO SCH (20:20)
[2019-06-22] MEDS: LORATADINE 10 MG TAB PO SCH (20:20)
[2019-06-22] MEDS: FAMOTIDINE 40 MG TABLET PO SCH (20:21)
[2019-06-22] MEDS: QUETIAPINE FUMARATE 100 MG TABLET PO SCH (20:23)
[2019-06-22] MEDS: TRAZODONE HCL 50 MG TAB PO SCH (20:23)
[2019-06-23] MEDS: LEVOTHYROXINE SODIUM 88 MCG TABLET PO SCH (06:03)
--- NOTE | 2019-06-23 07:58 | Infectious Disease Progress Nt ---
Date of Service June 23, 2019 Assessment & Plan (1) Febrile illness: will continue dapto, repeat cultures, gu source. due to persistent+ blood cutlures, will need prolonged course of IV abx - range of 6 weeks. Subjective pt remains with + blood cultures, 06/20 cultures growing MRSA, 06/21 S. aureus, 06/22 gpc. urine culture from admission with MRSA as well and strep species, final ID pending. she remains on dapto, wbc 6, creat 0.8, TTE done 06/21 negative for veg, but limited study. afebrile. tolerating abx. Results & Data Vital Signs (Past 12 Hours) Vital Signs Temp Pulse Resp BP Pulse Ox 06/23/19 06:14 36.7 C 89 20 107/74 95 06/22/19 23:45 36.4 C L 88 18 110/73 95 06/22/19 23:00 36.7 C 92 H 20 110/63 96 Laboratory Results Microbiology 06/21/19 09:12 Blood Aerobic Blood Culture - Preliminary Staphylococcus aureus 06/21/19 09:12 Blood Anaerobic Blood Culture - Preliminary Staphylococcus aureus 06/20/19 17:09 Blood Aerobic Blood Culture - Preliminary Staph aureus MRSA 06/20/19 17:09 Blood Anaerobic Blood Culture - Final 06/22/19 10:13 Blood Aerobic Blood Culture - Preliminary Gram positive cocci clusters 06/22/19 10:04 Blood Aerobic Blood Culture - Preliminary Gram positive cocci clusters 06/21/19 09:26 Blood Aerobic Blood Culture - Preliminary Staphylococcus aureus 06/21/19 09:26 Blood Anaerobic Blood Culture - Final 06/20/19 17:05 Blood Aerobic Blood Culture - Preliminary Staphylococcus aureus 06/20/19 17:05 Blood Anaerobic Blood Culture - Preliminary Staphylococcus aureus 06/20/19 18:05 Urine,Suprapubic Urine Culture - Preliminary Staph aureus MRSA Streptococcus species PG Care Time/CCT Total # of Minutes Spent Total Time Spent with Patient: Total time spent is greater than 50% in coordination of care (as documented) at patient's floor/unit and/or counseling patient:
[2019-06-23] MEDS: ACETAMINOPHEN 500 MG TAB PO PRN (08:50)
[2019-06-23] MEDS: CYANOCOBALAMIN 500 MCG TABLET (VITAMIN B-12) PO SCH (08:51)
[2019-06-23] MEDS: VENLAFAXINE HCL XR 150 MG CAPXR PO SCH (08:51)
[2019-06-23] MEDS: PANTOprazole 40 MG TAB PO SCH (08:51)
[2019-06-23] MEDS: VENLAFAXINE HCL XR 37.5 MG CAPXR PO SCH (08:52)
[2019-06-23] MEDS: HYOSCYAMINE SULFATE 0.125 MG TAB PO SCH ×3 (08:52→20:28)
[2019-06-23] MEDS: QUETIAPINE FUMARATE 25 MG TABLET PO SCH ×2 (08:53→12:45)
[2019-06-23] MEDS: FLUTICASONE/VILANTEROL 200/25MCG 14 PUFFS/INHALER INH SCH (08:53)
[2019-06-23] MEDS: MEXILETINE HCL 150 MG CAPSULE PO SCH ×3 (08:54→17:01)
[2019-06-23] MEDS: APIXABAN 5 MG TABLET PO SCH ×2 (08:54→20:28)
[2019-06-23] MEDS: BREXPIPRAZOLE 4 MG PO SCH (08:56)
[2019-06-23] MEDS: TOPIRAMATE 200 MG PO SCH ×2 (08:56→17:02)
[2019-06-23] MEDS: INSULIN ASPART 100 UNITS/ML 3 ML PEN SC SCH ×4 (08:57→20:47)
[2019-06-23 09:23] LABS: Basophils # (auto) 0.03 K/uL (0-0.2); Basophils % (auto) 0.5 %; Eosinophils # (auto) 0.26 K/uL (0-0.5); Eosinophils % (auto) 3.9 %; Hematocrit (blood only) 32.1 % (37-47); Hemoglobin 10.2 g/dL (12.0-16.0); Immature Granulocytes # (auto) 0.01 K/uL (0.00-0.02); Immature Granulocytes % (auto) 0.2 %; Lymphocytes # (auto) 1.78 K/uL (1.2-3.4); Mean Corpuscular Hemoglobin 28.1 pg (25-34); Mean Corpuscular Hgb Conc 31.8 g/dL (32-36); Mean Corpuscular Volume 88.4 fL (80-100); Mean Platelet Volume 10.5 fL (7.4-10.4); Monocytes # (auto) 0.59 K/uL (0.11-0.59); Neutrophils # (auto) 3.92 K/uL (1.4-6.5); Neutrophils % (auto) 59.4 %; Platelet Count 234 K/uL (130-400); RDW Coefficient of Variation 16.5 % (11.5-14.5); RDW Standard Deviation 53.7 fL (36.4-46.3); Red Blood Count 3.63 M/uL (4.2-5.4); White Blood Count 6.59 K/uL (4.8-10.8)
[2019-06-23 09:48] LABS: Albumin Level 2.6 gm/dl (3.4-5.0); BUN Creatinine Ratio 16.8 (10-20); Calcium 9.1 mg/dl (8.5-10.1); Creatinine Clr Calc Pharmacy 93.5 ml/min; Est GFR (African American) 130.6; Est GFR (Non-African American) 112.7; Magnesium 2.1 mg/dl (1.8-2.4); Potassium 3.8 mmol/L (3.5-5.1)
[2019-06-23 10:01] LABS: Albumin Globulin Ratio 0.6 (0.9-2); Bilirubin,Total 0.2 mg/dl (0.2-1); Globulin 4.6 gm/dl (2.5-4.0); Total Protein 7.2 gm/dl (6.4-8.2)
--- NOTE | 2019-06-23 12:37 | Hospitalist Progress Note ---
Date of Service June 23, 2019 Assessment & Plan (1) Septicemia: Patient here with fevers, tachycardia, UTI, and now with proven persistent MRSA bacteremia Repeat blood cultures persistently positive on 06/20, 06/21, 06/22 Fevers have resolved, tachycardia has resolved -Repeat blood cultures again on 06/23 to ensure stability -Continue daptomycin -Continue Tylenol as needed for fevers - echo for valvular vegetation-very difficult study due to body habitus-cannot rule out vegetation -May need LENNY-we will discuss with infectious disease versus treating empirically for 6 weeks-ID notes from today note prolonged course of IV antibiotics needed -She does have a MUCK B[employer] shunt in place and a right-sided Port-A-Cath which does not appear infected Infectious disease consultation appreciated -Follow repeat blood cultures until sterile (2) MRSA bacteremia: As above Will need prolonged antibiotics (3) UTI (urinary tract infection): Hx of recurrent UTI with suprapubic catheter-changed out here in the ER by her mom on the day of admission -Start home Renacidin bladder wash at bedtime and gets bladder flushes of her Meade catheter every morning UA on 06/19 collected prior to admission was contaminated and + for leuk est, neg nitrites with cx noted for 3 organisms WBC WNL, febrile, with sepsis and bacteremia as above Her suprapubic catheter was changed in the ED upon admission and specimen drawn was from clean cath UA here abnormal and urine culture growing MRSA and Streptococcus species- sensitivities pending -Continue daptomycin -Follow urine culture (4) Dysuria: As above in UTI (5) Sacral decubitus ulcer: [facility] c/s appreciated-continue offloading pressure and dressings as recommended Causing her great pain -Placed order for different type of low flow mattress (6) History of pulmonary embolism: Continue Eliquis (7) Bipolar 1 disorder: continue home meds which include benztropine 1 mg 3 times daily, haloperidol 2.5 mg IM twice daily as needed, hydroxyzine 25 mg 4 times daily as needed, mexiletine 300 mg p.o. 3 times daily, Seroquel 100 mg p.o. nightly, Topamax twice a day, trazodone 150 mg at bedtime, and venlafaxine 187.5 mg daily (8) Schizoaffective disorder: continue home meds as above (9) Hypokalemia: Replaced and resolved -Continue potassium 40 mEq p.o. twice daily Follow BMP (10) Hypothyroidism: TSH normal recently at 2.1 Continue home levothyroxine 88 mcg daily (11) Nocturnal hypoxemia: Continue chronic O2 at bedtime (12) Prediabetes: Hemoglobin A1c 6.1% With hyperglycemia here initially likely secondary to infection Previously on metformin and went off of it due to diarrhea Patient is wanting to go on insulin at home, however her hemoglobin A1c here is low and I advised her that she does not need to go on insulin at this point -Consult senior health educator -Continue SSI PRN while here (13) PTSD (post-traumatic stress disorder): continue home meds (14) Asthma: continue home albuterol as needed, fluticasone/Vilanterol 1 puff once daily No acute exacerbation (15) Anxiety: continue home meds (16) Insomnia: continue home meds As above (17) Chest pain: With recurrent, intermittent, left-sided chest wall pain that is sharp and stabbing in nature, lasting a few minutes at a time. She recently had a CT angiogram of the chest which was normal, echocardiogram without wall motion abnormalities, ECG here is normal at the time of chest pain It was not relieved with a GI cocktail -Likely secondary to musculoskeletal pain -Follow clinically (18) DVT prophylaxis: Eliquis Disposition-remain hospitalized for septicemia Subjective Patient complains of pain in her bottom at the site of her sacral wounds and requesting an air mattress-discussed with nursing. She also later in the day was complaining of left-sided sharp stabbing chest pains that come and go for many days. She has had extensive work-up for chest pain in the past including a recent CT angiogram of the chest which was negative. I gave her a GI cocktail on this did not improve the pain. Eventually just went away on its own. She complains of sweating and feeling hot and then chilled-her mom brought a box fan to the room with her. Unfortunately, blood cultures remain persistently positive. Review of Systems Review of Systems: All systems reviewed & are unremarkable except as noted in HPI & below Physical Exam Constitutional: WD/WN, vitals as above + morbidly obese Eyes: + anicteric sclerae ENMT: external ear and nose normal, oropharynx normal Neck: trachea midline, no thyromegaly Respiratory: normal respiratory effort, lungs clear to auscultation Auscultation: + diminished lung sounds (Diminished throughout due to body habitus) Cardiovascular: RRR, no murmur, no edema Chest (Breasts): Chest: normal inspection of chest Gastrointestinal (Abdomen): normal bowel sounds, soft, nontender, no hepatosplenomegaly Musculoskeletal: Extremities: + 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), no cyanosis and no clubbing Skin: no rashes, warm and dry Neurologic: moves all extremities and awake; no focal motor deficits Psychiatric: Orientation: alert, oriented to person, oriented to place, oriented to time and cooperative Speech: + loud speech Affect: euthymic affect Genitourinary: SP catheter with clear yellow urine draining Lymphatic: no lymphedema Results & Data Vital Signs (Past 12 Hours) Vital Signs Temp Pulse Resp BP Pulse Ox 06/23/19 06:14 36.7 C 89 20 107/74 95 Laboratory Results 06/23/19 06/23/19 06/23/19 Range/Units 20:24 16:35 11:38 WBC (4.8-10.8) K/uL RBC (4.2-5.4) M/uL Hgb (12.0-16.0) g/dL Hct (37-47) % MCV (80-100) fL MCH (25-34) pg MCHC (32-36) g/dL RDW Std Deviation (36.4-46.3) fL RDW Coeff of Neda (11.5-14.5) % Plt Count (130-400) K/uL MPV (7.4-10.4) fL Immature Gran % (Auto) % Neut % (Auto) % Lymph % (Auto) % [place] % (Auto) % Eos % (Auto) % Baso % (Auto) % Immature Gran # (Auto) (0.00-0.02) K/uL Neut # (Auto) (1.4-6.5) K/uL Lymph # (Auto) (1.2-3.4) K/uL [place] # (Auto) (0.11-0.59) K/uL Eos # (Auto) (0-0.5) K/uL Baso # (Auto) (0-0.2) K/uL Sodium (136-145) mmol/L Potassium (3.5-5.1) mmol/L Chloride (98-107) mmol/L Carbon Dioxide (21-32) mmol/L Anion Gap (3-11) BUN (7-18) mg/dl Creatinine (0.6-1.2) mg/dl Est Cr Clr Drug Dosing ml/min Est GFR ( Amer) Est GFR (Non-Af Amer) BUN/Creatinine Ratio (10-20) Glucose (70-99) mg/dl POC Glucose 117 H 121 H 166 H (70-99) mg/dl Calcium (8.5-10.1) mg/dl Magnesium (1.8-2.4) mg/dl Total Bilirubin (0.2-1) mg/dl AST (15-37) U/L ALT (12-78) U/L Alkaline Phosphatase (45-117) U/L Total Protein (6.4-8.2) gm/dl Albumin (3.4-5.0) gm/dl Globulin (2.5-4.0) gm/dl Albumin/Globulin Ratio (0.9-2) 06/23/19 06/23/19 06/23/19 Range/Units 09:03 09:03 07:22 WBC 6.59 (4.8-10.8) K/uL RBC 3.63 L (4.2-5.4) M/uL Hgb 10.2 L (12.0-16.0) g/dL Hct 32.1 L (37-47) % MCV 88.4 (80-100) fL MCH 28.1 (25-34) pg MCHC 31.8 L (32-36) g/dL RDW Std Deviation 53.7 H (36.4-46.3) fL RDW Coeff of Neda 16.5 H (11.5-14.5) % Plt Count 234 (130-400) K/uL MPV 10.5 H (7.4-10.4) fL Immature Gran % (Auto) 0.2 % Neut % (Auto) 59.4 % Lymph % (Auto) 27.0 % [place] % (Auto) 9.0 % Eos % (Auto) 3.9 % Baso % (Auto) 0.5 % Immature Gran # (Auto) 0.01 (0.00-0.02) K/uL Neut # (Auto) 3.92 (1.4-6.5) K/uL Lymph # (Auto) 1.78 (1.2-3.4) K/uL [place] # (Auto) 0.59 (0.11-0.59) K/uL Eos # (Auto) 0.26 (0-0.5) K/uL Baso # (Auto) 0.03 (0-0.2) K/uL Sodium 140 (136-145) mmol/L Potassium 3.8 D (3.5-5.1) mmol/L Chloride 112 H (98-107) mmol/L Carbon Dioxide 21 (21-32) mmol/L Anion Gap 6.0 (3-11) BUN 12 (7-18) mg/dl Creatinine 0.71 (0.6-1.2) mg/dl Est Cr Clr Drug Dosing 93.5 ml/min Est GFR ( Amer) 130.6 Est GFR (Non-Af Amer) 112.7 BUN/Creatinine Ratio 16.8 (10-20) Glucose 140 H (70-99) mg/dl POC Glucose 132 H (70-99) mg/dl Calcium 9.1 (8.5-10.1) mg/dl Magnesium 2.1 (1.8-2.4) mg/dl Total Bilirubin 0.2 (0.2-1) mg/dl AST 31 (15-37) U/L ALT 39 (12-78) U/L Alkaline Phosphatase 105 (45-117) U/L Total Protein 7.2 (6.4-8.2) gm/dl Albumin 2.6 L (3.4-5.0) gm/dl Globulin 4.6 H (2.5-4.0) gm/dl Albumin/Globulin Ratio 0.6 L (0.9-2) 06/22/19 06/22/19 Range/Units 22:35 10:04 WBC (4.8-10.8) K/uL RBC (4.2-5.4) M/uL Hgb (12.0-16.0) g/dL Hct (37-47) % MCV (80-100) fL MCH (25-34) pg MCHC (32-36) g/dL RDW Std Deviation (36.4-46.3) fL RDW Coeff of Neda (11.5-14.5) % Plt Count (130-400) K/uL MPV (7.4-10.4) fL Immature Gran % (Auto) % Neut % (Auto) % Lymph % (Auto) % [place] % (Auto) % Eos % (Auto) % Baso % (Auto) % Immature Gran # (Auto) (0.00-0.02) K/uL Neut # (Auto) (1.4-6.5) K/uL Lymph # (Auto) (1.2-3.4) K/uL [place] # (Auto) (0.11-0.59) K/uL Eos # (Auto) (0-0.5) K/uL Baso # (Auto) (0-0.2) K/uL Sodium 139 (136-145) mmol/L Potassium 3.2 L (3.5-5.1) mmol/L Chloride 113 H (98-107) mmol/L Carbon Dioxide 20 L (21-32) mmol/L Anion Gap 6.0 (3-11) BUN 12 (7-18) mg/dl Creatinine 0.81 (0.6-1.2) mg/dl Est Cr Clr Drug Dosing 82.0 ml/min Est GFR ( Amer) 111.4 Est GFR (Non-Af Amer) 96.1 BUN/Creatinine Ratio 14.3 (10-20) Glucose 207 H (70-99) mg/dl POC Glucose 119 H (70-99) mg/dl Calcium 8.4 L (8.5-10.1) mg/dl Magnesium 1.9 (1.8-2.4) mg/dl Total Bilirubin 0.2 (0.2-1) mg/dl AST 17 (15-37) U/L ALT 31 (12-78) U/L Alkaline Phosphatase 106 (45-117) U/L Total Protein 7.0 (6.4-8.2) gm/dl Albumin 2.4 L (3.4-5.0) gm/dl Globulin 4.6 H (2.5-4.0) gm/dl Albumin/Globulin Ratio 0.5 L (0.9-2) Blood cultures-MRSA growing on blood cultures from 06/20 06/21, gram-positive cocci in clusters growing on blood culture from 06/22 Urine culture growing MRSA and Streptococcus species PG Care Time/CCT Total # of Minutes Spent Total Time Spent with Patient: Total time spent is greater than 50% in coordi nation of care (as documented) at patient's floor/unit and/or counseling patient: (1) UTI (urinary tract infection) Hematuria presence: without hematuria Urinary tract infection type: acute cystitis Qualified Code(s): N30.00 - Acute cystitis without hematuria (2) Insomnia Insomnia type: unspecified Qualified Code(s): G47.00 - Insomnia, unspecified (3) Hypothyroidism Hypothyroidism type: unspecified Qualified Code(s): E03.9 - Hypothyroidism, unspecified (4) Schizoaffective disorder Schizoaffective disorder type: bipolar Qualified Code(s): F25.0 - Schizoaffective disorder, bipolar type (5) Asthma Asthma complication type: uncomplicated Asthma persistence: persistent Asthma severity: moderate Qualified Code(s): J45.40 - Moderate persistent asthma, uncomplicated
[2019-06-23] MEDS: POTASSIUM CHLORIDE 20 MEQ TABCR PO SCH ×2 (12:41→20:28)
[2019-06-23] MEDS: PRENATAL VITAMIN 1 TAB PO SCH (12:44)
[2019-06-23] MEDS ORDERED: ALUMINUM/MAGNESIUM SUSP 18 ML, LIDOCAINE HCL VISCOUS 2% 6 ML, BARCODE IDENTIFIER 1 EA PO ONE (17:00)
[2019-06-23] MEDS: DAPTOmycin 425 MG in SYRINGE 0 ML IV SCH (18:49)
[2019-06-23] MEDS: LORATADINE 10 MG TAB PO SCH (20:26)
[2019-06-23] MEDS: QUETIAPINE FUMARATE 100 MG TABLET PO SCH (20:29)
[2019-06-23] MEDS: FAMOTIDINE 40 MG TABLET PO SCH (20:29)
[2019-06-23] MEDS ORDERED: TRAZODONE HCL 100 MG TAB PO SCH (21:00)
[2019-06-24] MEDS: HEPARIN 100 UNIT/ML 5ML FLUSH FLUSH PRN ×3 (05:25→18:05)
[2019-06-24 05:53] LABS: Basophils # (auto) 0.04 K/uL (0-0.2); Basophils % (auto) 0.7 %; Eosinophils # (auto) 0.27 K/uL (0-0.5); Eosinophils % (auto) 4.4 %; Hematocrit (blood only) 30.4 % (37-47); Hemoglobin 9.5 g/dL (12.0-16.0); Immature Granulocytes # (auto) 0.02 K/uL (0.00-0.02); Immature Granulocytes % (auto) 0.3 %; Lymphocytes # (auto) 1.87 K/uL (1.2-3.4); Lymphocytes % (auto) 30.8 %; Mean Corpuscular Hemoglobin 27.6 pg (25-34); Mean Corpuscular Hgb Conc 31.3 g/dL (32-36); Mean Corpuscular Volume 88.4 fL (80-100); Mean Platelet Volume 10.4 fL (7.4-10.4); Monocytes # (auto) 0.75 K/uL (0.11-0.59); Monocytes % (auto) 12.4 %; Neutrophils # (auto) 3.12 K/uL (1.4-6.5); Neutrophils % (auto) 51.4 %; Platelet Count 238 K/uL (130-400); RDW Coefficient of Variation 16.6 % (11.5-14.5); RDW Standard Deviation 53.4 fL (36.4-46.3); Red Blood Count 3.44 M/uL (4.2-5.4); White Blood Count 6.07 K/uL (4.8-10.8)
[2019-06-24 06:13] LABS: Albumin Level 2.5 gm/dl (3.4-5.0); BUN Creatinine Ratio 20.5 (10-20); Calcium 8.7 mg/dl (8.5-10.1); Creatinine Clr Calc Pharmacy 103.8 ml/min; Est GFR (African American) 136.8; Est GFR (Non-African American) 118.1; Potassium 3.6 mmol/L (3.5-5.1)
[2019-06-24] MEDS: LEVOTHYROXINE SODIUM 88 MCG TABLET PO SCH (06:13)
[2019-06-24 06:16] LABS: Albumin Globulin Ratio 0.6 (0.9-2); Bilirubin,Total 0.2 mg/dl (0.2-1); Globulin 4.3 gm/dl (2.5-4.0); Total Protein 6.8 gm/dl (6.4-8.2)
[2019-06-24] MEDS: PRENATAL VITAMIN 1 TAB PO SCH (08:44)
[2019-06-24] MEDS: QUETIAPINE FUMARATE 25 MG TABLET PO SCH ×2 (08:45→13:17)
[2019-06-24] MEDS: VENLAFAXINE HCL XR 150 MG CAPXR PO SCH (08:45)
[2019-06-24] MEDS: BREXPIPRAZOLE 4 MG PO SCH (08:45)
[2019-06-24] MEDS: TOPIRAMATE 200 MG PO SCH ×2 (08:45→16:18)
[2019-06-24] MEDS: PANTOprazole 40 MG TAB PO SCH (08:46)
[2019-06-24] MEDS: HYOSCYAMINE SULFATE 0.125 MG TAB PO SCH ×3 (08:46→20:23)
[2019-06-24] MEDS: CYANOCOBALAMIN 500 MCG TABLET (VITAMIN B-12) PO SCH (08:46)
[2019-06-24] MEDS: VENLAFAXINE HCL XR 37.5 MG CAPXR PO SCH (08:46)
[2019-06-24] MEDS: POTASSIUM CHLORIDE 20 MEQ TABCR PO SCH ×2 (08:46→20:24)
[2019-06-24] MEDS: MEXILETINE HCL 150 MG CAPSULE PO SCH ×3 (08:47→16:18)
[2019-06-24] MEDS: APIXABAN 5 MG TABLET PO SCH ×2 (08:47→20:24)
[2019-06-24] MEDS: FLUTICASONE/VILANTEROL 200/25MCG 14 PUFFS/INHALER INH SCH (08:52)
[2019-06-24] MEDS: INSULIN ASPART 100 UNITS/ML 3 ML PEN SC SCH ×4 (09:01→22:21)
--- NOTE | 2019-06-24 09:54 | Infectious Disease Progress Nt ---
Date of Service June 24, 2019 Assessment & Plan (1) Febrile illness: will continue dapto, follow repeat cultures, gu source. due to persistent+ blood cultures will need prolonged course of IV abx - range of 6 weeks, if remain + would benefit from LENNY, also of concern is possibility of infected port, or vp [employer] shunt. Subjective afebrile. 06/23 cultures pending, previous cultures growing MRSA, urine culture growing MRSA and strep species, ID pending. wbc 6 tolerating Dapto. Results & Data Vital Signs (Past 12 Hours) Vital Signs Temp Pulse Resp BP Pulse Ox 06/24/19 08:02 36.5 C 82 20 102/64 98 06/23/19 23:00 36.6 C 92 H 20 101/68 97 Laboratory Results Microbiology 06/23/19 08:32 Blood Aerobic Blood Culture - Preliminary No growth in Aerobic bottle after 24 hours. 06/23/19 08:32 Blood Anaerobic Blood Culture - Preliminary No growth in Anaerobic bottle after 24 hours. 06/23/19 08:24 Blood Aerobic Blood Culture - Preliminary No growth in Aerobic bottle after 24 hours. 06/23/19 08:24 Blood Anaerobic Blood Culture - Preliminary No growth in Anaerobic bottle after 24 hours. 06/22/19 10:04 Blood Aerobic Blood Culture - Preliminary Staph aureus MRSA 06/22/19 10:04 Blood Anaerobic Blood Culture - Preliminary No growth in Anaerobic bottle after 24 hours. 06/22/19 10:13 Blood Aerobic Blood Culture - Preliminary Staph aureus MRSA 06/22/19 10:13 Blood Anaerobic Blood Culture - Preliminary No growth in Anaerobic bottle after 24 hours. 06/21/19 09:26 Blood Aerobic Blood Culture - Preliminary Staph aureus MRSA 06/21/19 09:26 Blood Anaerobic Blood Culture - Final 06/21/19 09:12 Blood Aerobic Blood Culture - Final Staph aureus MRSA 06/21/19 09:12 Blood Anaerobic Blood Culture - Final Staph aureus MRSA 06/20/19 17:05 Blood Aerobic Blood Culture - Final Staph aureus MRSA 06/20/19 17:05 Blood Anaerobic Blood Culture - Final Staph aureus MRSA 06/20/19 17:09 Blood Aerobic Blood Culture - Preliminary Staph aureus MRSA 06/20/19 17:09 Blood Anaerobic Blood Culture - Final 06/20/19 18:05 Urine,Suprapubic Urine Culture - Preliminary Staph aureus MRSA Streptococcus species PG Care Time/CCT Total # of Minutes Spent Total Time Spent with Patient: Total time spent is greater than 50% in coordination of care (as documented) at patient's floor/unit and/or counseling patient:
[2019-06-24] MEDS ORDERED: ACETAMINOPHEN 1,000 MG/100 ML VIAL IV ONE (14:45)
--- NOTE | 2019-06-24 16:14 | Hospitalist Progress Note ---
Date of Service June 24, 2019 Assessment & Plan (1) Septicemia: - Presents with fevers, tachycardia, UTI - now with confirmed MRSA Bacteremia; Afebrile since 06/20 - Multiple BCx with consistent bacteremia - most recent BCx from 06/23 NGTD prelim and will monitor for sterility - Continue Daptomycin - limitations due to resistance and allergies - Echo - difficult study due to body habitus - no vegetation seen but cannot be completely R/Od -- If consistent BCx growth may need to consider LENNY - current plan is 6 weeks Abx which should be sufficient time for endocarditis coverage - Does have a BILLPOSTER shunt and R sided port-a-cath which does not look infection - ID following - appreciate input - appreciate input (2) MRSA bacteremia: - As above; need for prolonged antibiotics (3) Recurrent UTI: - Suprapubic catheter associated UTI - causing MRSA Bacteremia - Catheter exchanged in ER by mom on day of admit - Continue Renacidin bladder wash HS and Meade catheter flushes every morning - UCx with MRSA and Enterococcus faecalis -- Biogram suggests approx. 75% cross-coverage - however all other sensitivities are patient allergies - Treatment as above (4) Sacral decubitus ulcer: - WCC following - apreciate assistance - continue to offload pressure and dressing as recommended - On low flow mattress (5) History of pulmonary embolism: - Continue Eliquis (6) Hypothyroidism: - TSH 2.1 - Continue Levothyroxine 88 mcg daily (7) Nocturnal hypoxemia: - Continue chronic O2 HS - can add humidification as she reports a nose bleed last night (8) Prediabetes: - A1c 6.1 - Hyperglycemia initially but improved - this was likely due to infection -- She states she does have higher BSGs at home and isn't eating well here due to limited options - can give a regular diet - Was on Metformin but this was stopped due to GI issues; she would like to continue insulin at home however did discuss risk of hypoglycemia as her A1c would not warrant such an aggressive approach at this current time - Did discuss at least checking her glucose as she reports dizziness at home and she feels this is related to elevated sugars - patient educator consult - appreciate discussion as mother is also interested in just better understanding of this condition -- Need Rx for accu-chek guide glucose meter, test strips for once daily check, fastclix lancets (drums) (9) Bipolar 1 disorder: - Bipolar I/Schizoaffective Disorder/Anxiety/PTSD/Insomnia - Continue Benztropine 1 mg TID, Haloperidol 2.5 mg IM BID PRN, Hydroxyzine 25 mg QID PRN, Mexiletine 300 mg TID, Seroquel 100 mg HS, Topamax BID, Trazodone 150 mg HS, and Venlafaxine 187.5 mg daily (10) Asthma: - No exacerbation at this time - Albuterol PRN; Fluticasone/Vilanterol daily (11) Chest pain: - Recurrent, intermittent, usually self-limiting L sided CP - sharp/stabbing and today more throbbing-like - CTA - normal; echocardiogram without wall motion abnormalities; EKG normal - Not relieved with GI cocktail - Does report sometimes resolves with Tylenol - so likely this is a MS pain - costochondritis? (12) DVT prophylaxis: Eliquis Disposition - Await sterile blood cultures; Will need to make sure all arrangements for IV Abx obtained which she is well established with services; hopefully D/C next 2-3 days Subjective Reports overall feeling okay today. Complains of a forehead headache today and states Tylenol normally calms this down. She is having intermittent L upper chest pain. She does state that in the past this pain would go away with Tylenol as well so likely musculoskeletal/costochondritis. She feels that the wounds on her backside are a little worse however states the new mattress and position changes are helping a lot. She is tolerating a diet but states she is just a picky eater. Glucose acceptable and will liberalize diet. Updated patient and mom at bedside. Review of Systems Constitutional: no fever, no chills and no anorexia Eyes: no worsening vision Ear, Nose, Mouth, Throat: no nasal congestion, no sore throat and no dysphagia Respiratory: no cough and no dyspnea Cardiovascular: + chest pain (L chest - throbbing); no radiating jaw, neck or arm pain, no dyspnea, no palpitations and no lightheadedness Gastrointestinal: no abdominal pain, no nausea, no vomiting, no constipation and no diarrhea/loose stools Integumentary: + sores Physical Exam Constitutional: WD/WN, vitals as above no acute distress Eyes: + anicteric sclerae ENMT: Ears: no hearing impairment Neck: trachea midline Respiratory: normal respiratory effort, lungs clear to auscultation Auscultation: + diminished lung sounds Cardiovascular: RRR, no murmur, no edema Gastrointestinal (Abdomen): Inspection/Auscultation: normal bowel sounds Percussion/Palpation: abdomen soft; abdomen nontender Musculoskeletal: Head/Neck/Chest: normocephalic and head atraumatic Extremities: + lower leg abnormality (BKA) Bilateral Skin: no rashes, warm and dry known sores on patients backside - did not move to assess Neurologic: moves all extremities Psychiatric: A+Ox3, euthymic affect Results & Data Vital Signs (Past 12 Hours) Vital Signs Temp Pulse Resp BP Pulse Ox 06/24/19 14:59 36.5 C 89 18 106/76 97 06/24/19 08:02 36.5 C 82 20 102/64 98 PG Care Time/CCT Total # of Minutes Spent Total Time Spent with Patient: Total time spent is greater than 50% in coordination of care (as documented) at patient's floor/unit and/or counseling patient: (1) Hypothyroidism Hypothyroidism type: unspecified Qualified Code(s): E03.9 - Hypothyroidism, unspecified (2) Asthma Asthma complication type: uncomplicated Asthma persistence: persistent Asthma severity: moderate Qualified Code(s): J45.40 - Moderate persistent ast hma, uncomplicated
[2019-06-24] MEDS: DAPTOmycin 425 MG in SYRINGE 0 ML IV SCH (18:05)
[2019-06-24] MEDS: ACETAMINOPHEN 500 MG TAB PO PRN (20:20)
[2019-06-24] MEDS: ONDANSETRON 8MG OD TAB PO PRN (20:20)
[2019-06-24] MEDS: QUETIAPINE FUMARATE 100 MG TABLET PO SCH (20:23)
[2019-06-24] MEDS: FAMOTIDINE 40 MG TABLET PO SCH (20:23)
[2019-06-24] MEDS: LORATADINE 10 MG TAB PO SCH (20:24)
[2019-06-24] MEDS: TRAZODONE HCL 50 MG TAB PO SCH (20:24)
--- NOTE | 2019-06-24 21:42 | Electrocardiogram Report ---
Test Reason : Blood Pressure : / mmHG Vent. Rate : 094 BPM Atrial Rate : 094 BPM P-R Int : 148 ms QRS Dur : 088 ms QT Int : 368 ms P-R-T Axes : 011 001 016 degrees QTc Int : 460 ms Normal sinus rhythm Cannot rule out Anterior infarct When compared with ECG of 19-JUN-2019 17:55, No significant change was found Confirmed by Paolo Reed ([id number]) on 06/24/2019 9:42:28 PM Referred By: REFERRED SELF Confirmed By:Paolo Reed
[2019-06-25] MEDS: LEVOTHYROXINE SODIUM 88 MCG TABLET PO SCH (06:19)
[2019-06-25] MEDS: POTASSIUM CHLORIDE 20 MEQ TABCR PO SCH ×2 (09:12→22:00)
[2019-06-25] MEDS: VENLAFAXINE HCL XR 150 MG CAPXR PO SCH (09:12)
[2019-06-25] MEDS: QUETIAPINE FUMARATE 25 MG TABLET PO SCH ×2 (09:12→16:17)
[2019-06-25] MEDS: PANTOprazole 40 MG TAB PO SCH (09:13)
[2019-06-25] MEDS: HYOSCYAMINE SULFATE 0.125 MG TAB PO SCH ×3 (09:13→22:02)
[2019-06-25] MEDS: VENLAFAXINE HCL XR 37.5 MG CAPXR PO SCH (09:13)
[2019-06-25] MEDS: MEXILETINE HCL 150 MG CAPSULE PO SCH ×3 (09:13→17:51)
[2019-06-25] MEDS: CYANOCOBALAMIN 500 MCG TABLET (VITAMIN B-12) PO SCH (09:13)
[2019-06-25] MEDS: PRENATAL VITAMIN 1 TAB PO SCH (09:14)
[2019-06-25] MEDS: FLUTICASONE/VILANTEROL 200/25MCG 14 PUFFS/INHALER INH SCH (09:14)
[2019-06-25] MEDS: TOPIRAMATE 200 MG PO SCH ×2 (09:14→17:51)
[2019-06-25] MEDS: BREXPIPRAZOLE 4 MG PO SCH (09:14)
[2019-06-25] MEDS: APIXABAN 5 MG TABLET PO SCH ×2 (09:14→21:59)
[2019-06-25] MEDS: INSULIN ASPART 100 UNITS/ML 3 ML PEN SC SCH ×4 (10:09→21:52)
--- NOTE | 2019-06-25 13:27 | Infectious Disease Progress Nt ---
Date of Service June 25, 2019 Assessment & Plan (1) Gram positive sepsis: continue dapto, repeat cultures negative to date would prefer to give longer course of abx due to port/shunt, range of 6 weeks. will need weekly cbc, cmp, esr while on abx. Subjective most recent blood cultures negative to date. previous cultures growing MRSA. tolerating dapto. afebrile. Results & Data Vital Signs (Past 12 Hours) Vital Signs Temp Pulse Resp BP Pulse Ox 06/25/19 08:10 36.6 C 80 18 101/69 99 Laboratory Results Microbiology 06/23/19 08:32 Blood Aerobic Blood Culture - Preliminary No growth in Aerobic bottle after 48 hours. 06/23/19 08:32 Blood Anaerobic Blood Culture - Preliminary No growth in Anaerobic bottle after 48 hours. 06/23/19 08:24 Blood Aerobic Blood Culture - Preliminary No growth in Aerobic bottle after 48 hours. 06/23/19 08:24 Blood Anaerobic Blood Culture - Preliminary No growth in Anaerobic bottle after 48 hours. 06/20/19 18:05 Urine,Suprapubic Urine Culture - Final Staph aureus MRSA Enterococcus faecalis 06/22/19 10:13 Blood Aerobic Blood Culture - Preliminary Staph aureus MRSA 06/22/19 10:13 Blood Anaerobic Blood Culture - Preliminary No growth in Anaerobic bottle after 48 hours. 06/22/19 10:04 Blood Aerobic Blood Culture - Preliminary Staph aureus MRSA 06/22/19 10:04 Blood Anaerobic Blood Culture - Preliminary No growth in Anaerobic bottle after 48 hours. 06/21/19 09:26 Blood Aerobic Blood Culture - Preliminary Staph aureus MRSA 06/21/19 09:26 Blood Anaerobic Blood Culture - Final 06/21/19 09:12 Blood Aerobic Blood Culture - Final Staph aureus MRSA 06/21/19 09:12 Blood Anaerobic Blood Culture - Final Staph aureus MRSA 06/20/19 17:05 Blood Aerobic Blood Culture - Final Staph aureus MRSA 06/20/19 17:05 Blood Anaerobic Blood Culture - Final Staph aureus MRSA 06/20/19 17:09 Blood Aerobic Blood Culture - Preliminary Staph aureus MRSA 06/20/19 17:09 Blood Anaerobic Blood Culture - Final PG Care Time/CCT Total # of Minutes Spent Total Time Spent with Patient: Total time spent is greater than 50% in coordi nation of care (as documented) at patient's floor/unit and/or counseling patient:
[2019-06-25] MEDS: DICLOFENAC SOD 1% GEL 100 GM TUBE EXT SCH ×2 (17:49→22:03)
[2019-06-25] MEDS: DAPTOmycin 425 MG in SYRINGE 0 ML IV SCH (17:54)
[2019-06-25] MEDS: HEPARIN 100 UNIT/ML 5ML FLUSH FLUSH PRN (18:02)
--- NOTE | 2019-06-25 18:30 | Hospitalist Progress Note ---
Date of Service June 25, 2019 Assessment & Plan (1) Septicemia: - Presents with fevers, tachycardia, UTI - now with confirmed MRSA Bacteremia; Afebrile since 06/20 - Multiple BCx with consistent bacteremia - most recent BCx from 06/23 NGTD prelim and will monitor for sterility - Continue Daptomycin - limitations due to resistance and allergies - will need weekly CBC, CMP, ESR - Echo - difficult study due to body habitus - no vegetation seen but cannot be completely R/Od -- If consistent BCx growth may need to consider LENNY - current plan is 6 weeks Abx which should be sufficient time for endocarditis coverage - 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 75% cross-coverage - however all other sensitivities are patient allergies - Treatment as above (4) Sacral decubitus ulcer: - WCC following - apreciate assistance - continue to offload pressure and dressing as recommended - On low flow mattress (5) History of pulmonary embolism: - Continue Eliquis (6) Hypothyroidism: - TSH 2.1 - Continue Levothyroxine 88 mcg daily (7) Nocturnal hypoxemia: - Continue chronic O2 HS - can add humidification as she reports a nose bleed/dry nose/mouth (8) Prediabetes: - A1c 6.1 - Hyperglycemia initially but improved - this was likely due to infection -- She states she does have higher BSGs at home and isn't eating well here due to limited options - can give a regular diet - Was on Metformin but this was stopped due to GI issues; she would like to continue insulin at home however did discuss risk of hypoglycemia as her A1c would not warrant such an aggressive approach at this current time - Did discuss at least checking her glucose as she reports dizziness at home and she feels this is related to elevated sugars - clinical educator consult - appreciate discussion as mother is also interested in just better understanding of this condition -- Need Rx for accu-chek guide glucose meter, test strips for once daily check, fastclix lancets (drums) (9) Bipolar 1 disorder: - Bipolar I/Schizoaffective Disorder/Anxiety/PTSD/Insomnia - Continue Benztropine 1 mg TID, Haloperidol 2.5 mg IM BID PRN, Hydroxyzine 25 mg QID PRN, Mexiletine 300 mg TID, Seroquel 100 mg HS, Topamax BID, Trazodone 150 mg HS, and Venlafaxine 187.5 mg daily (10) Asthma: - No exacerbation at this time - Albuterol PRN; Fluticasone/Vilanterol daily (11) Chest pain: - Recurrent, intermittent, usually self-limiting L sided CP - sharp/stabbing and today more throbbing-like - CTA - normal; echocardiogram without wall motion abnormalities; EKG normal and was repeated today - Not relieved with GI cocktail - Does report sometimes resolves with Tylenol - so likely this is a MS pain - costochondritis? -- Pain on 06/25 reproducible around old port incision - will trial Voltaren gel to this area (12) DVT prophylaxis: Eliquis Disposition - Will arrange tomorrows Dapto for around noon time as kidney function will allow; plan for D/C home tomorrow afternoon with IV Abx Subjective Patient reporting a few symptoms today on my assessment. She is reporting severe L sided chest pain located around the incision of her prior port site. She states she feels like she is having a heart attack. Pain is reproducible with palpation of the incision site. Surround sign looks good and no openings at this well-healed incision. EKG without acute changes. She also reports a sore throat and dry mouth/nose. No signs of thrush and posterior pharynx unremarkable. She states the humidified oxygen helps. She also reports a sore sensation in the R armpit which is erythematous and yeast appearing. No open sores appreciated. Tolerating diet without issue. No other complaints mentioned Review of Systems Constitutional: no fever, no chills and no anorexia Ear, Nose, Mouth, Throat: + dry mouth and + sore throat; no nasal discharge Respiratory: no cough and no dyspnea Cardiovascular: + chest pain; no radiating jaw, neck or arm pain, no palpitations, no lightheadedness and no edema Gastrointestinal: no abdominal pain, no nausea, no vomiting, no constipation and no diarrhea/loose stools Genitourinary: no dysuria Integumentary: + wounds; no rash Physical Exam Constitutional: WD/WN, vitals as above no acute distress Eyes: + anicteric sclerae ENMT: Ears: no hearing impairment Mouth: no oropharynx abnormality, no oral mucosal abnormality and oral mucous membranes not dry Neck: trachea midline Respiratory: normal respiratory effort, lungs clear to auscultation Cardiovascular: Rate/Rhythm: regular rate and regular rhythm Heart Sounds: no murmur Vessels: no JVD Chest (Breasts): Additional Comments: tenderness to palp of L upper chest around old port incision but no openings in skin, no erythema, no drainage; port in R upper chest without erythema, drainage, tenderness Gastrointestinal (Abdomen): Inspection/Auscultation: normal bowel sounds Percussion/Palpation: abdomen soft; abdomen nontender Musculoskeletal: Head/Neck/Chest: normocephalic and head atraumatic B/L BKA Skin: no rashes, warm and dry + wound (chronic - back side) Psychiatric: A+Ox3, euthymic affect Results & Data Vital Signs (Past 12 Hours) Vital Signs Temp Pulse Resp BP Pulse Ox 06/25/19 15:00 36.8 C 96 H 16 116/82 95 06/25/19 13:00 36.6 C 90 20 127/83 99 06/25/19 08:10 36.6 C 80 18 101/69 99 PG Care Time/CCT Total # of Minutes Spent Total Time Spent with Patient: Total time spent is greater than 50% in coordination of care (as documented) at patient's floor/unit and/or counseling patient: (1) Hypothyroidism Hypothyroidism type: unspecified Qualified Code(s): E03.9 - Hypothyroidism, unspecified (2) Asthma Asthma severity: moderate Asthma persistence: persistent Asthma complication type: uncomplicated Qualified Code(s): J45.40 - Moderate persistent asthma, uncomplicated
[2019-06-25] MEDS: LORATADINE 10 MG TAB PO SCH (21:58)
[2019-06-25] MEDS: TRAZODONE HCL 50 MG TAB PO SCH (21:59)
[2019-06-25] MEDS: FAMOTIDINE 40 MG TABLET PO SCH (22:01)
[2019-06-25] MEDS: QUETIAPINE FUMARATE 100 MG TABLET PO SCH (22:01)
--- NOTE | 2019-06-25 23:05 | Electrocardiogram Report ---
Test Reason : Blood Pressure : / mmHG Vent. Rate : 091 BPM Atrial Rate : 091 BPM P-R Int : 156 ms QRS Dur : 086 ms QT Int : 346 ms P-R-T Axes : 019 -01 024 degrees QTc Int : 425 ms Normal sinus rhythm Normal ECG When compared with ECG of 23-JUN-2019 16:26, No significant change was found Confirmed by Paolo Reed ([id number]) on 06/25/2019 11:05:54 PM Referred By: REFERRED SELF Confirmed By:Paolo Reed
[2019-06-26] MEDS: LEVOTHYROXINE SODIUM 88 MCG TABLET PO SCH (05:58)
[2019-06-26] MEDS: FLUTICASONE/VILANTEROL 200/25MCG 14 PUFFS/INHALER INH SCH (08:24)
[2019-06-26] MEDS: PRENATAL VITAMIN 1 TAB PO SCH (08:25)
[2019-06-26] MEDS: QUETIAPINE FUMARATE 25 MG TABLET PO SCH ×2 (08:25→15:57)
[2019-06-26] MEDS: MEXILETINE HCL 150 MG CAPSULE PO SCH ×3 (08:26→16:43)
[2019-06-26] MEDS: VENLAFAXINE HCL XR 150 MG CAPXR PO SCH (08:26)
[2019-06-26] MEDS: VENLAFAXINE HCL XR 37.5 MG CAPXR PO SCH (08:27)
[2019-06-26] MEDS: PANTOprazole 40 MG TAB PO SCH (08:27)
[2019-06-26] MEDS: APIXABAN 5 MG TABLET PO SCH ×2 (08:27→20:48)
[2019-06-26] MEDS: HYOSCYAMINE SULFATE 0.125 MG TAB PO SCH ×3 (08:27→20:43)
[2019-06-26] MEDS: POTASSIUM CHLORIDE 20 MEQ TABCR PO SCH ×2 (08:27→20:43)
[2019-06-26] MEDS: DICLOFENAC SOD 1% GEL 100 GM TUBE EXT SCH ×4 (08:28→20:49)
[2019-06-26] MEDS: BREXPIPRAZOLE 4 MG PO SCH (08:29)
[2019-06-26] MEDS: TOPIRAMATE 200 MG PO SCH ×2 (08:30→16:44)
[2019-06-26] MEDS: CYANOCOBALAMIN 500 MCG TABLET (VITAMIN B-12) PO SCH (08:30)
[2019-06-26 08:44] LABS: Hematocrit (blood only) 29.8 % (37-47); Hemoglobin 9.3 g/dL (12.0-16.0); Mean Corpuscular Hgb Conc 31.2 g/dL (32-36); Mean Corpuscular Volume 89.8 fL (80-100); Mean Platelet Volume 10.2 fL (7.4-10.4); Platelet Count 273 K/uL (130-400); RDW Coefficient of Variation 16.7 % (11.5-14.5); Red Blood Count 3.32 M/uL (4.2-5.4); White Blood Count 6.95 K/uL (4.8-10.8)
[2019-06-26 09:08] LABS: Calcium 8.9 mg/dl (8.5-10.1); Creatinine Clr Calc Pharmacy 110.7 ml/min; Est GFR (African American) 139.8; Est GFR (Non-African American) 120.6; Potassium 3.7 mmol/L (3.5-5.1)
[2019-06-26] MEDS: INSULIN ASPART 100 UNITS/ML 3 ML PEN SC SCH ×4 (09:18→20:50)
[2019-06-26] MEDS ORDERED: PHENAZOPYRIDINE HCL 200 MG TAB PO PRN (10:23)
[2019-06-26] MEDS: HEPARIN 100 UNIT/ML 5ML FLUSH FLUSH PRN (14:14)
[2019-06-26] MEDS: DAPTOmycin 425 MG in SYRINGE 0 ML IV SCH (14:14)
[2019-06-26] MEDS: ONDANSETRON INJ 2 MG/ML 2 ML VIAL IV PRN ×2 (16:44→22:11)
--- NOTE | 2019-06-26 17:16 | Hospitalist Progress Note ---
Date of Service June 26, 2019 Assessment & Plan (1) Septicemia: - Presents with fevers, tachycardia, UTI - now with confirmed MRSA Bacteremia; Afebrile since 06/20 - Multiple BCx with consistent bacteremia - most recent BCx from 06/23 now with 1 of 2 + with staph species - now again new BCx obtained on 06/26 - Continue Daptomycin - limitations due to resistance and allergies - will need weekly CBC, CMP, ESR - Echo - difficult study due to body habitus - no vegetation seen but cannot be completely R/Od -- If consistent BCx growth may need to consider LENNY - current plan is 6 weeks Abx which should be sufficient time for endocarditis coverage - Does have a NETWORK [employer] shunt and R sided port-a-cath which does not look infection - ID following - appreciate input (2) MRSA bacteremia: - As above; need for prolonged antibiotics (3) Recurrent UTI: - Suprapubic catheter associated UTI - causing MRSA Bacteremia - Catheter exchanged in ER by mom on day of admit - Continue Renacidin bladder wash HS and Meade catheter flushes every morning - UCx with MRSA and Enterococcus faecalis -- Biogram suggests approx. 75% cross-coverage with Dapto - however all other sensitivities are patient allergies - Treatment as above (4) Sacral decubitus ulcer: - WCC following - apreciate assistance - continue to offload pressure and dressing as recommended - On low flow mattress (5) History of pulmonary embolism: - Continue Eliquis (6) Hypothyroidism: - TSH 2.1 - Continue Levothyroxine 88 mcg daily (7) Nocturnal hypoxemia: - Continue chronic O2 HS - can add humidification as she reports a nose bleed/dry nose/mouth (8) Prediabetes: - A1c 6.1 - Hyperglycemia initially but improved - this was likely due to infection -- She states she does have higher BSGs at home and isn't eating well here due to limited options - can give a regular diet - Was on Metformin but this was stopped due to GI issues; she would like to continue insulin at home however did discuss risk of hypoglycemia as her A1c would not warrant such an aggressive approach at this current time - Did discuss at least checking her glucose as she reports dizziness at home and she feels this is related to elevated sugars - community health educator consult - appreciate discussion as mother is also interested in just better understanding of this condition -- Need Rx for accu-chek guide glucose meter, test strips for once daily ch stephanie, fastclix lancets (drums) (9) Bipolar 1 disorder: - Bipolar I/Schizoaffective Disorder/Anxiety/PTSD/Insomnia - Continue Benztropine 1 mg TID, Haloperidol 2.5 mg IM BID PRN, Hydroxyzine 25 mg QID PRN, Mexiletine 300 mg TID, Seroquel 100 mg HS, Topamax BID, Trazodone 150 mg HS, and Venlafaxine 187.5 mg daily (10) Asthma: - No exacerbation at this time - Albuterol PRN; Fluticasone/Vilanterol daily (11) Chest pain: - Recurrent, intermittent, usually self-limiting L sided CP - CTA - normal; echocardiogram without wall motion abnormalities; EKG normal and was repeated today - Not relieved with GI cocktail - Does report sometimes resolves with Tylenol - so likely this is a MS pain - costochondritis? -- Pain on 06/25 reproducible around old port incision - will trial Voltaren gel to this area (12) DVT prophylaxis: Eliquis Disposition - Await new cultures; D/C pending sterility Subjective Reports some increased urinary symptoms today which she states is not uncommon for her and normally takes Azo pills. She said she slept well overnight. Unfortunately the one blood culture from 06/23 now growing staphylococcus species. New Cx again now pending. Verbalizes no other complaints at this time. Review of Systems Constitutional: no fever and no chills Respiratory: no cough Cardiovascular: no chest pain, no palpitations, no lightheadedness and no edema Gastrointestinal: no abdominal pain, no nausea and no vomiting Genitourinary: + dysuria Integumentary: no rash Physical Exam Constitutional: WD/WN, vitals as above no acute distress Eyes: + anicteric sclerae ENMT: Ears: no hearing impairment Neck: trachea midline Respiratory: normal respiratory effort, lungs clear to auscultation Auscultation: + diminished lung sounds Cardiovascular: RRR, no murmur, no edema Rate/Rhythm: regular rate and regular rhythm Heart Sounds: no murmur Vessels: no JVD Gastrointestinal (Abdomen): Inspection/Auscultation: normal bowel sounds Percussion/Palpation: abdomen soft; abdomen nontender Musculoskeletal: Head/Neck/Chest: normocephalic and head atraumatic Extremities: + lower leg abnormality (BKA) Bilateral Skin: no rashes, warm and dry + wound (chronic - back side) Neurologic: moves all extremities Psychiatric: A+Ox3, euthymic affect Results & Data Vital Signs (Past 12 Hours) Vital Signs Temp Pulse Resp BP Pulse Ox 06/26/19 15:33 36.4 C L 98 H 20 120/75 96 06/26/19 08:00 36.5 C 78 20 110/71 96 PG Care Time/CCT Total # of Minutes Spent Total Time Spent with Patient: Total time spent is greater than 50% in coordination of care (as documented) at patient's floor/unit and/or counseling patient: (1) Hypothyroidism Hypothyroidism type: unspecified Qualified Code(s): E03.9 - Hypothyroidism, unspecified (2) Asthma Asthma complication type: uncomplicated Asthma persistence: persistent Asthma severity: moderate Qualified Code(s): J45.40 - Moderate persistent asthma, uncomplicated
[2019-06-26] MEDS: LORATADINE 10 MG TAB PO SCH (20:45)
[2019-06-26] MEDS: FAMOTIDINE 40 MG TABLET PO SCH (20:45)
[2019-06-26] MEDS: QUETIAPINE FUMARATE 100 MG TABLET PO SCH (20:46)
[2019-06-26] MEDS: TRAZODONE HCL 50 MG TAB PO SCH (20:48)
[2019-06-27] MEDS: ONDANSETRON INJ 2 MG/ML 2 ML VIAL IV PRN ×2 (03:59→10:50)
[2019-06-27] MEDS: HEPARIN 100 UNIT/ML 5ML FLUSH FLUSH PRN ×3 (04:05→14:13)
[2019-06-27] MEDS: LEVOTHYROXINE SODIUM 88 MCG TABLET PO SCH (06:21)
[2019-06-27 07:59] LABS: Hematocrit (blood only) 31.4 % (37-47); Hemoglobin 9.7 g/dL (12.0-16.0); Mean Corpuscular Hemoglobin 27.8 pg (25-34); Mean Corpuscular Hgb Conc 30.9 g/dL (32-36); Mean Platelet Volume 10.5 fL (7.4-10.4); Platelet Count 316 K/uL (130-400); RDW Coefficient of Variation 16.8 % (11.5-14.5); Red Blood Count 3.49 M/uL (4.2-5.4)
[2019-06-27] MEDS: MEXILETINE HCL 150 MG CAPSULE PO SCH ×3 (08:43→16:14)
[2019-06-27] MEDS: APIXABAN 5 MG TABLET PO SCH ×2 (08:44→20:59)
[2019-06-27] MEDS: VENLAFAXINE HCL XR 37.5 MG CAPXR PO SCH (08:44)
[2019-06-27] MEDS: FLUTICASONE/VILANTEROL 200/25MCG 14 PUFFS/INHALER INH SCH (08:44)
[2019-06-27] MEDS: VENLAFAXINE HCL XR 150 MG CAPXR PO SCH (08:44)
[2019-06-27] MEDS: POTASSIUM CHLORIDE 20 MEQ TABCR PO SCH ×2 (08:44→20:59)
[2019-06-27] MEDS: CYANOCOBALAMIN 500 MCG TABLET (VITAMIN B-12) PO SCH (08:45)
[2019-06-27] MEDS: QUETIAPINE FUMARATE 25 MG TABLET PO SCH ×2 (08:45→14:13)
[2019-06-27] MEDS: PANTOprazole 40 MG TAB PO SCH (08:45)
[2019-06-27] MEDS: PRENATAL VITAMIN 1 TAB PO SCH (08:45)
[2019-06-27] MEDS: HYOSCYAMINE SULFATE 0.125 MG TAB PO SCH ×3 (08:45→20:58)
[2019-06-27] MEDS: DICLOFENAC SOD 1% GEL 100 GM TUBE EXT SCH ×5 (08:46→21:00)
[2019-06-27] MEDS: HYDROCODONE/ACETAMOPHEN 5/325MG TAB PO PRN (08:46)
[2019-06-27] MEDS: BREXPIPRAZOLE 4 MG PO SCH (08:47)
[2019-06-27] MEDS: TOPIRAMATE 200 MG PO SCH ×2 (08:47→16:14)
[2019-06-27] MEDS: INSULIN ASPART 100 UNITS/ML 3 ML PEN SC SCH ×4 (09:04→21:16)
[2019-06-27] MEDS: DAPTOmycin 425 MG in SYRINGE 0 ML IV SCH (14:13)
[2019-06-27] MEDS: LORATADINE 10 MG TAB PO SCH (20:58)
[2019-06-27] MEDS: TRAZODONE HCL 50 MG TAB PO SCH (20:58)
[2019-06-27] MEDS: QUETIAPINE FUMARATE 100 MG TABLET PO SCH (20:59)
[2019-06-27] MEDS: FAMOTIDINE 40 MG TABLET PO SCH (21:00)
--- NOTE | 2019-06-27 22:12 | Hospitalist Progress Note ---
Date of Service June 27, 2019 Assessment & Plan (1) Septicemia: - Presents with fevers, tachycardia, UTI - now with confirmed MRSA Bacteremia; Afebrile since 06/20 - Multiple BCx with consistent bacteremia blood cultures 06/23 positive for MRSA blood cultures 06/26 positive for gram positive cocci, likely MRSA will repeat blood cultures on 06/28 to document clearance - Continue Daptomycin - limitations due to resistance and allergies - will need weekly CBC, CMP, ESR Dr. Charlton already recommending 6 week course unsure if LENNY would be of any benefit as it would not change the duration of therapy make NPO after midnight, will discuss with cardiology tomorrow if LENNY would be of any benefit has port in place so may be a source of persistent cultures, difficult to eradicate - Echo - difficult study due to body habitus - no vegetation seen but cannot be completely R/Od - Does have a RESERVATIONS SPECIALIST shunt and R sided port-a-cath: no signs of infection on skin (2) MRSA bacteremia: - As above plan for 6 weeks of therapy from negative cultures, still awaiting negative cultures 06/26 positive for GP cocci, repeat on 06/28 (3) Recurrent UTI: - Suprapubic catheter associated UTI - causing MRSA Bacteremia - Catheter exchanged in ER by mom on day of admit - Continue Renacidin bladder wash HS and Meade catheter flushes every morning - UCx with MRSA and Enterococcus faecalis -- Biogram suggests approx. 75% cross-coverage with Dapto - however all other sensitivities are patient allergies - Treatment as above (4) Sacral decubitus ulcer: - WCC following - apreciate assistance - continue to offload pressure and dressing as recommended - On low flow mattress (5) History of pulmonary embolism: - Continue Eliquis (6) Hypothyroidism: - TSH 2.1 - Continue Levothyroxine 88 mcg daily (7) Nocturnal hypoxemia: - Continue chronic O2 HS - can add humidification as she reports a nose bleed/dry nose/mouth (8) Prediabetes: - A1c 6.1 - Hyperglycemia initially but improved - this was likely due to infection -- She states she does have higher BSGs at home and isn't eating well here due to limited options - can give a regular diet - Was on Metformin but this was stopped due to GI issues; she would like to continue insulin at home however did discuss risk of hypoglycemia as her A1c would not warrant such an aggressive approach at this current time - Did discuss at least checking her glucose as she reports dizziness at home and she feels this is related to elevated sugars - health educator consult - appreciate discussion as mother is also interested in just better understanding of this condition -- Need Rx for accu-chek guide glucose meter, test strips for once daily check, fastclix lancets (drums) (9) Bipolar 1 disorder: - Bipolar I/Schizoaffective Disorder/Anxiety/PTSD/Insomnia - Continue Benztropine 1 mg TID, Haloperidol 2.5 mg IM BID PRN, Hydroxyzine 25 mg QID PRN, Mexiletine 300 mg TID, Seroquel 100 mg HS, Topamax BID, Trazodone 150 mg HS, and Venlafaxine 187.5 mg daily (10) Asthma: - No exacerbation at this time - Albuterol PRN; Fluticasone/Vilanterol daily (11) Chest pain: - Recurrent, intermittent, usually self-limiting L sided CP - CTA - normal; echocardiogram without wall motion abnormalities; EKG normal and was repeated today - Not relieved with GI cocktail - Does report sometimes resolves with Tylenol - so likely this is a MS pain - costochondritis? -- Pain on 06/25 reproducible around old port incision - will trial Voltaren gel to this area (12) DVT prophylaxis: Eliquis Disposition - Await new cultures; D/C pending sterility Subjective patient doing fine, no new issues she is experiencing some anxiety and difficulty sleeping she wishes her service dog could come and visit her but per policy it is not allowed she is eating okay discussed most recent blood cultures from 06/26 with a positive result of gram positive cocci discussed whether she would want a LENNY, she agreed to it if cardiology thought it was appropriate will make her NPO after midnight and ask cardiology for their opinion tomorrow Review of Systems Review of Systems: All systems reviewed & are unremarkable except as noted in HPI & below Psychiatric: + depression, + abnormal sleep pattern and + anxiety; no suicidal ideation Physical Exam Constitutional: WD/WN, vitals as above + obese Eyes: PERRL, conjunctivae normal, anicteric sclerae ENMT: external ear and nose normal, oropharynx normal Neck: trachea midline, no thyromegaly Respiratory: normal respiratory effort, lungs clear to auscultation Cardiovascular: RRR, no murmur, no edema Gastrointestinal (Abdomen): normal bowel sounds, soft, nontender, no hepatosplenomegaly Musculoskeletal: no cyanosis or clubbing, extremities motor strength 5/5 Extremities: + amputation noted (bilateral AKA) Skin: no rashes, warm and dry Neurologic: patellar DTR's 2+ bilat, sensation intact and PERRL, EOMI, accommodation nl, no face palsy, no dysarthria Psychiatric: Orientation: alert and oriented x 3 Affect: + anxious affect Lymphatic: no cervical or axillary lymphadenopathy Results & Data Vital Signs (Past 12 Hours) Vital Signs Temp Pulse Resp BP Pulse Ox 06/27/19 15:31 36.8 C 99 H 20 119/76 93 Laboratory Results Laboratory Results - last 24 hr 06/27/19 06/27/19 06/27/19 07:43 07:55 11:42 WBC 7.40 RBC 3.49 L Hgb 9.7 L Hct 31.4 L MCV 90.0 MCH 27.8 MCHC 30.9 L RDW Std Deviation 55.0 H RDW Coeff of Neda 16.8 H Plt Count 316 MPV 10.5 H POC Glucose 151 H 190 H 06/27/19 06/27/19 16:33 21:10 WBC RBC Hgb Hct MCV MCH MCHC RDW Std Deviation RDW Coeff of Neda Plt Count MPV POC Glucose 137 H 127 H Microbiology 06/26/19 08:16 Blood Aerobic Blood Culture - Preliminary Gram positive cocci clusters 06/26/19 08:16 Blood Anaerobic Blood Culture - Preliminary No growth in Anaerobic bottle after 24 hours. 06/26/19 08:24 Blood Aerobic Blood Culture - Preliminary No growth in Aerobic bottle after 24 hours. 06/26/19 08:24 Blood Anaerobic Blood Culture - Preliminary No growth in Anaerobic bottle after 24 hours. 06/23/19 08:24 Blood Aerobic Blood Culture - Preliminary Staph aureus MRSA 06/23/19 08:24 Blood Anaerobic Blood Culture - Preliminary No growth in Anaerobic bottle after 48 hours. 06/23/19 08:32 Blood Aerobic Blood Culture - Preliminary No growth in Aerobic bottle after 48 hours. 06/23/19 08:32 Blood Anaerobic Blood Culture - Preliminary No growth in Anaerobic bottle after 48 hours. 06/20/19 18:05 Urine,Suprapubic Urine Culture - Final Staph aureus MRSA Enterococcus faecalis 06/22/19 10:13 Blood Aerobic Blood Culture - Preliminary Staph aureus MRSA 06/22/19 10:13 Blood Anaerobic Blood Culture - Preliminary No growth in Anaerobic bottle after 48 hours. 06/22/19 10:04 Blood Aerobic Blood Culture - Preliminary Staph aureus MRSA 06/22/19 10:04 Blood Anaerobic Blood Culture - Preliminary No growth in Anaerobic bottle after 48 hours. 06/21/19 09:26 Blood Aerobic Blood Culture - Preliminary Staph aureus MRSA 06/21/19 09:26 Blood Anaerobic Blood Culture - Final 06/21/19 09:12 Blood Aerobic Blood Culture - Final Staph aureus MRSA 06/21/19 09:12 Blood Anaerobic Blood Culture - Final Staph aureus MRSA 06/20/19 17:05 Blood Aerobic Blood Culture - Final Staph aureus MRSA 06/20/19 17:05 Blood Anaerobic Blood Culture - Final Staph aureus MRSA 06/20/19 17:09 Blood Aerobic Blood Culture - Preliminary Staph aureus MRSA 06/20/19 17:09 Blood Anaerobic Blood Culture - Final Medications Administered Current Inpatient Medications Acetaminophen (Tylenol) 1,000 mg PO Q6H PRN PRN Reason: Fever Or Pain Stop: 07/20/19 20:25 Last Admin: 06/24/19 20:20 Dose: 1,000 mg Documented by: Hydrocodone Bitart/Acetaminophen ([place] 5/325) 1 - 2 tab PO Q4H PRN PRN Reason: Pain Stop: 07/04/19 23:41 Last Admin: 06/27/19 08:46 Dose: 2 tab Documented by: Albuterol (Ventolin Hfa) 2 puffs INH Q6 PRN PRN Reason: Shortness Of Breath Or Wheezin Stop: 07/20/19 20:57 Apixaban (Eliquis) 5 mg PO BID [facility] Stop: 07/20/19 20:59 Last Admin: 06/27/19 20:59 Dose: 5 mg Documented by: Benzonatate (Tessalon Perle) 200 mg PO TID PRN PRN Reason: Cough Stop: 07/20/19 20:25 Benztropine Mesylate (Cogentin) 1 mg PO TID PRN PRN Reason: Migraine Headache Stop: 07/20/19 20:25 Benztropine Mesylate (Cogentin) 1 mg IM DAILY PRN PRN Reason: Haldol Reaction Stop: 07/20/19 20:25 Brexpiprazole (Rexulti) 1 ea PO QAM [facility] Stop: 07/22/19 08:59 Last Admin: 06/27/19 08:47 Dose: 1 ea Documented by: Cetirizine HCl (Zyrtec) 10 mg PO BID PRN PRN Reason: Allergies or Antibiotics Stop: 07/20/19 20:25 Cyanocobalamin (Vitamin B-12) 1,000 mcg PO QAM [facility] Stop: 07/21/19 08:59 Last Admin: 06/27/19 08:45 Dose: 1,000 mcg Documented by: Dextrose (Dextrose 50%) 25 - 50 ml IV UD PRN; Protocol PRN Reason: Hypoglycemia Protocol Stop: 07/20/19 20:25 Diclofenac Sodium (Voltaren 1% Top) 4 gm EXT QID [facility] Stop: 07/25/19 16:59 Last Admin: 06/27/19 21:00 Dose: Not Given Documented by: Diphenhydramine HCl (Benadryl Capsule) 25 mg PO QID PRN PRN Reason: Allergic Symptoms Stop: 07/20/19 20:25 Last Admin: 06/27/19 10:49 Dose: 25 mg Documented by: Famotidine (Pepcid) 40 mg PO HS [facility] Stop: 07/20/19 20:59 Last Admin: 06/27/19 21:00 Dose: 40 mg Documented by: Fluticasone/Vilanterol (Breo Ellipta 200/25 Mcg Inh) 1 puffs [facility]H [facility] Stop: 07/21/19 08:59 Last Admin: 06/27/19 08:44 Dose: 1 puffs Documented by: Glucagon (Glucagen) 1 mg SQ UD PRN; Protocol PRN Reason: Hypoglycemia Protocol Stop: 07/20/19 20:25 Glucose (Dex4 Glucose) 4 - 8 tabs PO UD PRN; Protocol PRN Reason: Hypoglycemia Protocol Stop: 07/20/19 20:25 Glucose (Glucose 40%) 15 - 30 gm PO UD PRN; Protocol PRN Reason: Hypoglycemia Protocol Stop: 07/20/19 20:25 Haloperidol Lactate (Haldol) 2.5 mg IM BID PRN PRN Reason: acute headaches Stop: 07/20/19 20:25 Heparin Sodium (Porcine) (Heparin Sod 100 Unit/Ml Flush) 5 ml FLUSH PRN PRN PRN Reason: Flush Stop: 07/20/19 22:44 Last Admin: 06/27/19 14:13 Dose: 5 ml Documented by: Hydroxyzine HCl (Vistaril) 25 mg PO QID PRN PRN Reason: Anxiety Stop: 07/20/19 20:25 Last Admin: 06/27/19 12:37 Dose: 25 mg Documented by: Hyoscyamine (Levsin) 0.125 mg PO TID [facility] Stop: 07/20/19 20:59 Last Admin: 06/27/19 20:58 Dose: 0.125 mg Documented by: Daptomycin 425 mg/ Syringe 8.5 mls @ 4.25 mls/min IV Q24H [facility]; Protocol Stop: 07/04/19 17:59 Last Admin: 06/27/19 14:13 Dose: 4.25 mls/min Documented by: Insulin Aspart (Novolog Flexpen) 0 units SC ACHS [facility] Stop: 07/20/19 20:59 Last Admin: 06/27/19 21:16 Dose: Not Given Documented by: Levalbuterol HCl (Xopenex 0.63 Mg/3 Ml Neb) 0.63 mg INH Q6H PRN PRN Reason: Shortness Of Breath Stop: 07/20/19 20:25 Levothyroxine Sodium (Synthroid) 88 mcg PO DAILYBB [facility] Stop: 07/21/19 06:29 Last Admin: 06/27/19 06:21 Dose: 88 mcg Documented by: Lidocaine (Xylocaine 5% Oint) 1 appln TOP QID PRN PRN Reason: Pain Stop: 07/20/19 20:25 Loratadine (Claritin) 10 mg PO HS [facility] Stop: 07/20/19 20:59 Last Admin: 06/27/19 20:58 Dose: 10 mg Documented by: Magnesium Hydroxide (Milk Of Magnesia) 30 ml PO Q6H PRN PRN Reason: Constipation Stop: 07/20/19 20:25 Metoclopramide HCl (Reglan) 10 mg PO BID PRN PRN Reason: acute headaches Stop: 07/20/19 20:25 Mexiletine HCl (Mexitil) 300 mg PO TIDM [facility] Stop: 07/21/19 07:59 Last Admin: 06/27/19 16:14 Dose: 300 mg Documented by: Miscellaneous (Carbohydrates For Hypoglycemia) 15 - 30 gm PO UD PRN PRN Reason: Hypoglycemia Protocol Stop: 07/20/19 20:25 Nystatin (Mycostatin) 1 appln EXT TID PRN PRN Reason: Skin Irritation Stop: 07/20/19 20:25 Nystatin/Triamcinolone Acetonide (Mycolog Ii) 1 appln EXT TID PRN PRN Reason: AFFECTED SKIN Stop: 07/20/19 20:25 Ondansetron HCl (Zofran Odt) 8 mg PO Q6H PRN PRN Reason: Nausea Stop: 07/20/19 20:25 Last Admin: 06/24/19 20:20 Dose: 8 mg Documented by: Ondansetron HCl (Zofran) 4 mg IV Q6H PRN PRN Reason: Nausea Stop: 07/20/19 20:25 Last Admin: 06/27/19 10:50 Dose: 4 mg Documented by: Pantoprazole Sodium (Protonix) 40 mg PO QAM [facility] Stop: 07/21/19 08:59 Last Admin: 06/27/19 08:45 Dose: 40 mg Documented by: Phenazopyridine HCl (Pyridium) 200 mg PO TID PRN PRN Reason: Dysuria Stop: 07/26/19 10:22 Polyethylene Glycol (Miralax Powder Packet) 17 gm PO TID PRN PRN Reason: Constipation Stop: 07/20/19 20:25 Potassium Chloride (Klor-Con M20) 40 meq PO BID [facility] Stop: 07/22/19 20:59 Last Admin: 06/27/19 20:59 Dose: 40 meq Documented by: Prenat Multivit/Welder And Fitter/Iron/Folic Ac ( Vitamin) 1 tab PO DAILY [facility] Stop: 07/24/19 08:59 Last Admin: 06/27/19 08:45 Dose: 1 tab Documented by: Promethazine HCl (Phenergan) 12.5 mg IM Q6H PRN PRN Reason: Nausea Stop: 07/20/19 20:25 Quetiapine Fumarate (Seroquel) 12.5 mg PO 0900,1400 [facility] Stop: 07/21/19 08:59 Last Admin: 06/27/19 14:13 Dose: 12.5 mg Documented by: Quetiapine Fumarate (Seroquel) 100 mg PO [facility] Stop: 07/20/19 20:59 Last Admin: 06/27/19 20:59 Dose: 100 mg Documented by: Topiramate (Qudexy Xr) 1 ea PO BIDM [facility] Stop: 07/21/19 16:59 Last Admin: 06/27/19 16:14 Dose: 1 ea Documented by: Trazodone HCl (Desyrel) 150 mg PO [facility] Stop: 07/20/19 20:59 Last Admin: 06/27/19 20:58 Dose: 150 mg Documented by: Triamcinolone Acetonide (Kenalog 0.1%) 1 appln TOP TID PRN PRN Reason: Itching Stop: 07/20/19 20:25 Venlafaxine HCl (Effexor Extended Release) 37.5 mg [facility] Stop: 07/21/19 08:59 Last Admin: 06/27/19 08:44 Dose: 37.5 mg Documented by: Venlafaxine HCl (Effexor Extended Release) 150 mg [facility] Stop: 07/21/19 08:59 Last Admin: 06/27/19 08:44 Dose: 150 mg Documented by: PG Care Time/CCT Total # of Minutes Spent Total Time Spent with Patient: Total time spent is greater than 50% in coordination of care (as documented) at patient's floor/unit and/or counseling patient: Coding Level of Care Code 48674 Subseq Hosp Care Lvl 2 Diagnoses Septicemia A41.9 MRSA bacteremia R78.81 Recurrent UTI N39.0 Sacral decubitus ulcer L89.159 History of pulmonary embolism Z86.711 Hypothyroidism E03.9 Hypothyroidism type: unspecified Nocturnal hypoxemia G47.34 Prediabetes R73.03 Bipolar 1 disorder F31.9 Asthma J45.40 Asthma complication type: uncomplicated Asthma persistence: persistent Asthma severity: moderate Chest pain R07.9 DVT prophylaxis Z29.9 (1) Hypothyroidism Hypothyroidism type: unspecified Qualified Code(s): E03.9 - Hypothyroidism, unspecified (2) Asthma Asthma complication type: uncomplicated Asthma persistence: persistent Asthma severity: moderate Qualified Code(s): J45.40 - Moderate persistent asthma, uncomplicated
[2019-06-28] MEDS: HEPARIN 100 UNIT/ML 5ML FLUSH FLUSH PRN (05:20)
[2019-06-28 05:56] LABS: Creatinine Clr Calc Pharmacy 96.2 ml/min; Est GFR (African American) 133.5; Est GFR (Non-African American) 115.2
[2019-06-28] MEDS: LEVOTHYROXINE SODIUM 88 MCG TABLET PO SCH (06:03)
[2019-06-28] MEDS: INSULIN ASPART 100 UNITS/ML 3 ML PEN SC SCH ×4 (07:55→21:38)
[2019-06-28] MEDS: DICLOFENAC SOD 1% GEL 100 GM TUBE EXT SCH ×4 (09:39→21:23)
--- NOTE | 2019-06-28 10:52 | CT Scan Report ---
CT head/brain wo con CLINICAL HISTORY: 34 years-old Female with headache, patient concerned shunt not working. Acute head ache with shunt catheter TECHNIQUE: Multiple axial CT images of the head were obtained without contrast. A dose lowering tech nique was utilized adhering to the principles of ALARA. 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 Right frontal approach ventriculostomy catheter is noted with distal tip terminat ing within the frontal horn right lateral ventricle near the foramen of L. The ventricles are predomi nantly decompressed. No hydrocephalus. No acute intracranial hemorrhage, acute territorial infarct or abnormal extra axial collection. Benson-white differentiation appears preserved. No acute calvarial fr acture. The imaged ventriculostomy catheter appears intact. Mastoid air cells and paranasal sinuses a re clear. Soft tissues and orbits are unremarkable. IMPRESSION: 1. No acute intracranial abnormality. 2. Right frontal approach ventriculostomy catheter is in stable positioning. No hydrocephalus. ACT 112: Negative or not required by law. The above report was generated using voice recognition software. It may contain grammatical, syntax o r spelling errors. Electronically signed by: Bob Martino M.D. 06/28/2019 10:51 AM
[2019-06-28] MEDS: APIXABAN 5 MG TABLET PO SCH (11:24)
[2019-06-28] MEDS: MEXILETINE HCL 150 MG CAPSULE PO SCH ×3 (11:24→16:50)
[2019-06-28] MEDS: HYOSCYAMINE SULFATE 0.125 MG TAB PO SCH ×3 (11:25→21:22)
--- NOTE | 2019-06-28 11:39 | XRay Report ---
XR skull <4V CLINICAL HISTORY: Visualize Shunt tube position COMPARISON: None. DISCUSSION: Shunt tube appears to be intact. There is no evidence for discontinuity. There is no evid ence for soft tissue swelling. IMPRESSION: The ventriculoperitoneal shunt catheter is intact in the region of the skull and soft tis kenna neck. ACT 112: Negative or not required by law. The above report was generated using voice recognition software. It may contain grammatical, syntax or spelling errors. Electronically signed by: Werner Mcmahon M.D. 06/28/2019 11:38 AM
--- NOTE | 2019-06-28 11:40 | XRay Report ---
XR cervical spine 2 or 3V HISTORY: Shunt series Visualize Shunt COMPARISON: None. FINDINGSthe shunt catheter is intact within the right soft tissue cervical region. No evidence for di scontinuity. IMPRESSION: The cervical component of the shunt series shows no evidence for discontinuity of the shunt catheter ACT 112: Negative or not required by law. The above report was generated using voice recognition software. It may contain grammatical, syntax or spelling errors. Electronically signed by: Werner Mcmahon M.D. 06/28/2019 11:39 AM
--- NOTE | 2019-06-28 12:04 | XRay Report ---
XR chest 2V PA/lateral, XR abdomen min 2V HISTORY: 34 years-old Female Visualize Shunt ventricular peritoneal shunt catheter COMPARISON: Chest radiograph 06/18/2019, CT abdomen and pelvis 05/30/2019, CTA chest 06/19/2019. TECHNIQUE: PA and lateral views of the chest with 2 views of the abdomen FINDINGS: CHEST: Right IJ [id number] catheter distal tip terminates in the expected location of the right atrium. A catheter projects over the right abdomen, proximal tip within the region of the right clavicular dis tribution. A shunt catheter is noted projecting along the right neck and lateral right hemithorax, co iled about the medial right lung base with distal tip terminating within the right lung base distribu tion. Trace right pleural effusion suggest functioning catheter. No catheter discontinuity identified . Low lung volumes. Cardiac silhouette is upper limits of normal in size. No pneumothorax or overt pu lmonary edema. Cholecystectomy. Mild convex left curvature of the lower thoracic spine. KUB: Demineralized appearance the bones with spinal dysraphism of the lumbar and sacral spine. Chronic braulio earing deformities of the femoral acetabular joints suggests nonweightbearing status. Distal tip of a catheter projects over the right lower quadrant of the abdomen which appears to be intact and unchan ged from comparison CT. Moderate to extensive fecal retention. Cholecystectomy. Nonobstructive bowel gas pattern. No pneumatosis or pneumoperitoneum. IMPRESSION: 1. Ventricular pleural shunt catheter as above without evidence of catheter discontinuity or other co mplication. 2. Trace right pleural effusion suggests functioning shunt catheter. 3. Low lung volumes. 4. Moderate to extensive fecal retention with nonobstructive bowel gas pattern. ACT 112: Negative or not required by law. The above report was generated using voice recognition software. It may contain grammatical, syntax o r spelling errors. Electronically signed by: Bob Martino M.D. 06/28/2019 12:02 PM
[2019-06-28] MEDS: VENLAFAXINE HCL XR 150 MG CAPXR PO SCH (12:09)
[2019-06-28] MEDS: FLUTICASONE/VILANTEROL 200/25MCG 14 PUFFS/INHALER INH SCH (12:09)
[2019-06-28] MEDS: VENLAFAXINE HCL XR 37.5 MG CAPXR PO SCH (12:09)
[2019-06-28] MEDS: PANTOprazole 40 MG TAB PO SCH (12:10)
[2019-06-28] MEDS: QUETIAPINE FUMARATE 25 MG TABLET PO SCH ×2 (12:10→14:47)
[2019-06-28] MEDS: PRENATAL VITAMIN 1 TAB PO SCH (12:10)
[2019-06-28] MEDS: POTASSIUM CHLORIDE 20 MEQ TABCR PO SCH ×2 (12:10→21:23)
[2019-06-28] MEDS: CYANOCOBALAMIN 500 MCG TABLET (VITAMIN B-12) PO SCH (12:11)
[2019-06-28] MEDS: TOPIRAMATE 200 MG PO SCH ×2 (12:12→16:50)
[2019-06-28] MEDS: BREXPIPRAZOLE 4 MG PO SCH (12:13)
[2019-06-28] MEDS ORDERED: MIDAZOLAM HCL 1 MG/ML 2ML VIAL ONE (12:43)
[2019-06-28] MEDS ORDERED: PROPOFOL IV EMULSION 10 MG/ML 20 ML VIAL IV ONE (12:43)
[2019-06-28] MEDS ORDERED: LIDOCAINE HCL 2% 2 ML VIAL/AMP(20MG/ML) INFIL ONE (12:43)
[2019-06-28] MEDS ORDERED: fentaNYL citrate 100 MCG/2 ML VIAL ONE (12:43)
[2019-06-28] MEDS ORDERED: ONDANSETRON INJ 2 MG/ML 2 ML VIAL ONE (12:44)
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
[2019-06-28] MEDS ORDERED: LIDOCAINE/EPINEPHRINE 1% 20 ML VIAL ONE (13:07)
[2019-06-28] MEDS ORDERED: LORazepam 0.5 MG/1 ML VIAL IV STA (13:15)
[2019-06-28] MEDS ORDERED: MoRPHine SULFATE 2 MG/ML CARP IV STA (13:21)
[2019-06-28 14:04] LABS: Pregnancy Test, Serum Negative (Negative)
--- NOTE | 2019-06-28 14:04 | Infectious Disease Progress Nt ---
Date of Service June 28, 2019 Assessment & Plan (1) Gram positive sepsis: continue dapto, repeat cultures pending, will follow. port to be removed due to persistent + cultures. Subjective pt remains afebrile. on dapto. tolerating well. Pt had + blood cultures 06/20- 06/23, cultures were repeated on 06/26 - one form port one from stick, port cultures continue to grow Staph, concerning for infected port, surgery has evaluated and will be removing. repeat blood cultures pending from earlier today. Results & Data Vital Signs (Past 12 Hours) Vital Signs Temp Pulse Pulse Resp BP Pulse Ox 06/28/19 13:12 36.9 C 94 H 18 128/83 97 06/28/19 07:12 36.5 C 81 18 110/71 93 Laboratory Results Microbiology 06/23/19 08:32 Blood Aerobic Blood Culture - Final No growth in Aerobic bottle after 5 days. 06/23/19 08:32 Blood Anaerobic Blood Culture - Final No growth in Anaerobic bottle after 5 days. 06/23/19 08:24 Blood Aerobic Blood Culture - Preliminary Staph aureus MRSA 06/23/19 08:24 Blood Anaerobic Blood Culture - Final No growth in Anaerobic bottle after 5 days. 06/26/19 08:16 Blood Aerobic Blood Culture - Preliminary Staphylococcus aureus 06/26/19 08:16 Blood Anaerobic Blood Culture - Preliminary No growth in Anaerobic bottle after 48 hours. 06/26/19 08:24 Blood Aerobic Blood Culture - Preliminary No growth in Aerobic bottle after 48 hours. 06/26/19 08:24 Blood Anaerobic Blood Culture - Preliminary No growth in Anaerobic bottle after 48 hours. 06/22/19 10:13 Blood Aerobic Blood Culture - Preliminary Staph aureus MRSA 06/22/19 10:13 Blood Anaerobic Blood Culture - Final No growth in Anaerobic bottle after 5 days. 06/22/19 10:04 Blood Aerobic Blood Culture - Preliminary Staph aureus MRSA 06/22/19 10:04 Blood Anaerobic Blood Culture - Final No growth in Anaerobic bottle after 5 days. 06/20/19 18:05 Urine,Suprapubic Urine Culture - Final Staph aureus MRSA Enterococcus faecalis 06/21/19 09:26 Blood Aerobic Blood Culture - Preliminary Staph aureus MRSA 06/21/19 09:26 Blood Anaerobic Blood Culture - Final 06/21/19 09:12 Blood Aerobic Blood Culture - Final Staph aureus MRSA 06/21/19 09:12 Blood Anaerobic Blood Culture - Final Staph aureus MRSA 06/20/19 17:05 Blood Aerobic Blood Culture - Final Staph aureus MRSA 06/20/19 17:05 Blood Anaerobic Blood Culture - Final Staph aureus MRSA 06/20/19 17:09 Blood Aerobic Blood Culture - Preliminary Staph aureus MRSA 06/20/19 17:09 Blood Anaerobic Blood Culture - Final PG Care Time/CCT Total # of Minutes Spent Total Time Spent with Patient: Total time spent is greater than 50% in coordination of care (as documented) at patient's floor/unit and/or counseling patient: Coding Level of Care Code 47101 Subseq Hosp Care Lvl 1 Diagnoses Gram positive sepsis A41.89
--- NOTE | 2019-06-28 14:17 | Operative Report ---
PG Post Operative Report Pre & Post Diagnosis Operation Date: 06/28/19 18:10 Pre-Op Diagnosis: Septicemia Post-Op Diagnosis: Septicemia I identified the patient and participated in the time-out.: Yes Procedure Operation Date: 06/28/19 18:10 Actual Procedures p Port Removal(Not Applicable) - Song Bain DO, TIAGO Surgeon Song Bain DO, TIAGO [employer] Survival Technician Naheed Pack Estimated Blood Loss 2 Findings Consistent with Post-Op Diagnosis Port removed intact, tip sent for culture. Good hemostasis. Specimens Catheter tip for culture Port-A-Cath Anesthesia Type Local Complications none Disposition Accompanied Patient To Recovery: No Disposition: Recovery Room Indications 34-year-old female with multiple medical problems admitted for infection, found to have multiple positive blood cultures from her port site but not from peripheral access sites. This led us to believe that the port was a site of infection and infectious disease requested removal. Plan for port removal. The risks of the procedure were discussed, all questions were answered, and the patient agreed to proceed with surgery as planned. Description of Procedure The patient was properly identified, consented, and taken to the operating room where she was placed in the supine position. No anesthesia was induced. SCDs and a safety belt were placed. Preoperative antibiotics were administered. The patient's right chest and was prepped and draped in the standard sterile fashion. Surgical timeout was performed and all parties were in agreement that this was the correct patient and procedure to be performed and we continued as planned. Local anesthetic was injected along the skin incision. A obliquely oriented incision was made through the prior incision over lying the port and deepened down through the subcutaneous tissue with electrocautery. The capsule of the port was opened. The port was circumferentially dissected and removed. It appeared to be intact. Pressure was held on the right internal jugular vein at the access site for 2 to 3 minutes. Hemostasis appeared good. The capsule was excised. The catheter tip was sent for culture and the remainder the port was sent to pathology. The wound was irrigated and hemostasis was confirmed. The skin was closed with interrupted 3-0 Vicryl deep dermal sutures, followed by 4-0 Monocryl running subcuticular suture. Dermabond was placed over the wound. The patient was taken to recovery where she recovered without apparent incident. All sponge, instrument and needle counts were correct at the conclusion of the procedure. The patient tolerated the procedure well. The physician's assistant surveyor was present and scrubbed for the entire the case. She was critical in positioning the patient, prepping and draping, retraction and exposure, removal of the port, closure of the skin, and placement of the dressing. I attest to the content of the Intraoperative Record and any orders documented therein. Any exceptions are noted below.
[2019-06-28] MEDS: DAPTOmycin 425 MG in SYRINGE 0 ML IV SCH (15:29)
--- NOTE | 2019-06-28 15:45 | Hospitalist Progress Note ---
Date of Service June 28, 2019 Assessment & Plan (1) Septicemia: - Presents with fevers, tachycardia, UTI - now with confirmed MRSA Bacteremia; Afebrile since 06/20 - Multiple BCx with consistent bacteremia blood cultures 06/23 positive for MRSA blood cultures 06/26 positive for gram positive cocci, likely MRSA will repeat blood cultures on 06/28 to document clearance - Continue Daptomycin - limitations due to resistance and allergies - will need weekly CBC, CMP, ESR Dr. Charlton already recommending 6 week course - Echo - difficult study due to body habitus - no vegetation seen but cannot be completely R/Od repeat cultures were all positive from port, negative from peripheral draw port removed on 06/[address] Bain will repeat cultures tomorrow, if negative at 48 hours plan for PICC line Monday for the 6 week duration of treatment no fever, feeling fine (2) MRSA bacteremia: - As above plan for 6 weeks of therapy from negative cultures, still awaiting negative cultures repeat cultures on 06/29 (3) Recurrent UTI: - Suprapubic catheter associated UTI - causing MRSA Bacteremia - Catheter exchanged in ER by mom on day of admit - Continue Renacidin bladder wash HS and Meade catheter flushes every morning - UCx with MRSA and Enterococcus faecalis -- Biogram suggests approx. 75% cross-coverage with Dapto - however all other sensitivities are patient allergies - Treatment as above (4) Sacral decubitus ulcer: - WCC following - apreciate assistance - continue to offload pressure and dressing as recommended - On low flow mattress (5) History of pulmonary embolism: - Continue Eliquis (6) Hypothyroidism: - TSH 2.1 - Continue Levothyroxine 88 mcg daily (7) Nocturnal hypoxemia: - Continue chronic O2 HS - can add humidification as she reports a nose bleed/dry nose/mouth (8) Prediabetes: - A1c 6.1 - Hyperglycemia initially but improved - this was likely due to infection -- She states she does have higher BSGs at home and isn't eating well here due to limited options - can give a regular diet - Was on Metformin but this was stopped due to GI issues; she would like to continue insulin at home however did discuss risk of hypoglycemia as her A1c would not warrant such an aggressive approach at this current time - Did discuss at least checking her glucose as she reports dizziness at home and she feels this is related to elevated sugars - communications and signals supervisor consult - appreciate discussion as mother is also interested in just better understanding of this condition -- Need Rx for accu-chek guide glucose meter, test strips for once daily check, fastclix lancets (rizwana) (9) Bipolar 1 disorder: - Bipolar I/Schizoaffective Disorder/Anxiety/PTSD/Insomnia - Continue Benztropine 1 mg TID, Haloperidol 2.5 mg IM BID PRN, Hydroxyzine 25 mg QID PRN, Mexiletine 300 mg TID, Seroquel 100 mg HS, Topamax BID, Trazodone 150 mg HS, and Venlafaxine 187.5 mg daily (10) Asthma: - No exacerbation at this time - Albuterol PRN; Fluticasone/Vilanterol daily (11) Chest pain: - Recurrent, intermittent, usually self-limiting L sided CP - CTA - normal; echocardiogram without wall motion abnormalities; EKG normal and was repeated today - Not relieved with GI cocktail - Does report sometimes resolves with Tylenol - so likely this is a MS pain - costochondritis? -- Pain on 06/25 reproducible around old port incision - will trial Voltaren gel to this area (12) DVT prophylaxis: Eliquis Disposition - Await new cultures; D/C pending sterility Subjective patient had a headache this morning, she was concerned about her shunt function CT head showed shunt in good position, no hydrocephalus discussed the case with Dr. Charlton, concern about the port being infected as the positive MRSA cultures were from the port draws, not the peripheral draws discussed with Dr. Bain with surgery, agreed to d/c the port today, no complications updated patient's mom in the room saw patient afterwards, she was feeling well, no issues, she was eating her dinner discussed plan was to repeat blood cultures tomorrow, if negative then plan for PICC on Monday for 6 weeks of antibiotics Review of Systems Review of Systems: All systems reviewed & are unremarkable except as noted in HPI & below Constitutional: + fatigue and + weakness; no fever Respiratory: no cough and no dyspnea Cardiovascular: no chest pain Gastrointestinal: no abdominal pain, no nausea, no vomiting, no constipation and no diarrhea/loose stools Neurologic: + headache(s) Physical Exam Constitutional: WD/WN, vitals as above + obese Eyes: PERRL, conjunctivae normal, anicteric sclerae ENMT: external ear and nose normal, oropharynx normal Neck: trachea midline, no thyromegaly Respiratory: normal respiratory effort, lungs clear to auscultation Cardiovascular: RRR, no murmur, no edema Gastrointestinal (Abdomen): normal bowel sounds, soft, nontender, no hepatosplenomegaly Musculoskeletal: no cyanosis or clubbing, extremities motor strength 5/5 Extremities: + amputation noted (bilateral AKA) Skin: no rashes, warm and dry Neurologic: patellar DTR's 2+ bilat, sensation intact and PERRL, EOMI, accommodation nl, no face palsy, no dysarthria Psychiatric: Orientation: alert and oriented x 3 Affect: + anxious affect Lymphatic: no cervical or axillary lymphadenopathy Results & Data Vital Signs (Past 12 Hours) Vital Signs Temp Pulse Pulse Pulse Resp BP BP 06/28/19 14:55 36.7 C 95 H 18 112/76 06/28/19 14:15 95 H 18 147/75 H 06/28/19 14:10 91 H 18 137/66 06/28/19 14:05 94 H 18 144/71 H 06/28/19 14:00 92 H 18 145/73 H 06/28/19 13:55 90 18 119/81 06/28/19 13:50 86 20 124/82 06/28/19 13:12 36.9 C 94 H 18 128/83 06/28/19 07:12 36.5 C 81 18 110/71 Pulse Ox 06/28/19 14:55 95 06/28/19 14:15 99 06/28/19 14:10 95 06/28/19 14:05 99 06/28/19 14:00 100 06/28/19 13:55 100 06/28/19 13:50 100 06/28/19 13:12 97 06/28/19 07:12 93 Laboratory Results Laboratory Results - last 24 hr 06/27/19 06/27/19 06/28/19 16:33 21:10 05:19 Creatinine 0.69 Est Cr Clr Drug Dosing 96.2 Est GFR ( Amer) 133.5 Est GFR (Non-Af Amer) 115.2 POC Glucose 137 H 127 H Total Creatine Kinase 10 L HCG, Qual 06/28/19 06/28/19 06/28/19 07:50 11:49 13:06 Creatinine Est Cr Clr Drug Dosing Est GFR ( Amer) Est GFR (Non-Af Amer) POC Glucose 138 H 122 H Total Creatine Kinase HCG, Qual Negative Medications Administered Current Inpatient Medications Acetaminophen (Tylenol) 1,000 mg PO Q6H PRN PRN Reason: Fever Or Pain Stop: 07/20/19 20:25 Last Admin: 06/24/19 20:20 Dose: 1,000 mg Documented by: Hydrocodone Bitart/Acetaminophen ([place] 5/325) 1 - 2 tab PO Q4H PRN PRN Reason: Pain Stop: 07/04/19 23:41 Last Admin: 06/27/19 08:46 Dose: 2 tab Documented by: Albuterol (Ventolin Hfa) 2 puffs INH Q6 PRN PRN Reason: Shortness Of Breath Or Wheezin Stop: 07/20/19 20:57 Apixaban (Eliquis) 5 mg PO BID [facility] Stop: 07/20/19 20:59 Last Admin: 06/28/19 11:24 Dose: Not Given Documented by: Benzonatate (Tessalon Perle) 200 mg PO TID PRN PRN Reason: Cough Stop: 07/20/19 20:25 Benztropine Mesylate (Cogentin) 1 mg PO TID PRN PRN Reason: Migraine Headache Stop: 07/20/19 20:25 Benztropine Mesylate (Cogentin) 1 mg IM DAILY PRN PRN Reason: Haldol Reaction Stop: 07/20/19 20:25 Brexpiprazole (Rexulti) 1 ea PO [facility] Stop: 07/22/19 08:59 Last Admin: 06/28/19 12:13 Dose: 1 ea Documented by: Cetirizine HCl (Zyrtec) 10 mg PO BID PRN PRN Reason: Allergies or Antibiotics Stop: 07/20/19 20:25 Cyanocobalamin (Vitamin B-12) [facility] Stop: 07/21/19 08:59 Last Admin: 06/28/19 12:11 Dose: 1,000 mcg Documented by: Dextrose (Dextrose 50%) 25 - 50 ml IV UD PRN; Protocol PRN Reason: Hypoglycemia Protocol Stop: 07/20/19 20:25 Diclofenac Sodium (Voltaren 1% Top) 4 gm EXT QID [facility] Stop: 07/25/19 16:59 Last Admin: 06/28/19 12:17 Dose: Not Given Documented by: Diphenhydramine HCl (Benadryl Capsule) 25 mg PO QID PRN PRN Reason: Allergic Symptoms Stop: 07/20/19 20:25 Last Admin: 06/27/19 10:49 Dose: 25 mg Documented by: Famotidine (Pepcid) 40 mg PO HS [facility] Stop: 07/20/19 20:59 Last Admin: 06/27/19 21:00 Dose: 40 mg Documented by: Fluticasone/Vilanterol (Breo Ellipta 200/25 Mcg Inh) 1 puffs INH QAM [facility] Stop: 07/21/19 08:59 Last Admin: 06/28/19 12:09 Dose: 1 puffs Documented by: Glucagon (Glucagen) 1 mg SQ UD PRN; Protocol PRN Reason: Hypoglycemia Protocol Stop: 07/20/19 20:25 Glucose (Dex4 Glucose) 4 - 8 tabs PO UD PRN; Protocol PRN Reason: Hypoglycemia Protocol Stop: 07/20/19 20:25 Glucose (Glucose 40%) 15 - 30 gm PO UD PRN; Protocol PRN Reason: Hypoglycemia Protocol Stop: 07/20/19 20:25 Haloperidol Lactate (Haldol) 2.5 mg IM BID PRN PRN Reason: acute headaches Stop: 07/20/19 20:25 Heparin Sodium (Porcine) (Heparin Sod 100 Unit/Ml Flush) 5 ml FLUSH PRN PRN PRN Reason: Flush Stop: 07/20/19 22:44 Last Admin: 06/28/19 05:20 Dose: 5 ml Documented by: Hydroxyzine HCl (Vistaril) 25 mg PO QID PRN PRN Reason: Anxiety Stop: 07/20/19 20:25 Last Admin: 06/27/19 12:37 Dose: 25 mg Documented by: Hyoscyamine (Levsin) 0.125 mg PO TID [facility] Stop: 07/20/19 20:59 Last Admin: 06/28/19 14:47 Dose: 0.125 mg Documented by: Daptomycin 425 mg/ Syringe 8.5 mls @ 4.25 mls/min IV Q24H [facility]; Protocol Stop: 07/04/19 17:59 Last Admin: 06/28/19 15:29 Dose: 4.25 mls/min Documented by: Insulin Aspart (Novolog Flexpen) 0 units SC ACHS [facility] Stop: 07/20/19 20:59 Last Admin: 06/28/19 12:39 Dose: 3 units Documented by: Levalbuterol HCl (Xopenex 0.63 Mg/3 Ml Neb) 0.63 mg INH Q6H PRN PRN Reason: Shortness Of Breath Stop: 07/20/19 20:25 Levothyroxine Sodium (Synthroid) 88 mcg PO DAILYBB [facility] Stop: 07/21/19 06:29 Last Admin: 06/28/19 06:03 Dose: 88 mcg Documented by: Lidocaine (Xylocaine 5% Oint) 1 appln TOP QID PRN PRN Reason: Pain Stop: 07/20/19 20:25 Loratadine (Claritin) 10 mg PO HS [facility] Stop: 07/20/19 20:59 Last Admin: 06/27/19 20:58 Dose: 10 mg Documented by: Magnesium Hydroxide (Milk Of Magnesia) 30 ml PO Q6H PRN PRN Reason: Constipation Stop: 07/20/19 20:25 Metoclopramide HCl (Reglan) 10 mg PO BID PRN PRN Reason: acute headaches Stop: 07/20/19 20:25 Mexiletine HCl (Mexitil) 300 mg PO TIDM [facility] Stop: 07/21/19 07:59 Last Admin: 06/28/19 12:11 Dose: 300 mg Documented by: Miscellaneous (Carbohydrates For Hypoglycemia) 15 - 30 gm PO UD PRN PRN Reason: Hypoglycemia Protocol Stop: 07/20/19 20:25 Nystatin (Mycostatin) 1 appln EXT TID PRN PRN Reason: Skin Irritation Stop: 07/20/19 20:25 Nystatin/Triamcinolone Acetonide (Mycolog Ii) 1 appln EXT TID PRN PRN Reason: AFFECTED SKIN Stop: 07/20/19 20:25 Ondansetron HCl (Zofran Odt) 8 mg PO Q6H PRN PRN Reason: Nausea Stop: 07/20/19 20:25 Last Admin: 06/24/19 20:20 Dose: 8 mg Documented by: Ondansetron HCl (Zofran) 4 mg IV Q6H PRN PRN Reason: Nausea Stop: 07/20/19 20:25 Last Admin: 06/27/19 10:50 Dose: 4 mg Documented by: Pantoprazole Sodium (Protonix) 40 mg PO QAM [facility] Stop: 07/21/19 08:59 Last Admin: 06/28/19 12:10 Dose: 40 mg Documented by: Phenazopyridine HCl (Pyridium) 200 mg PO TID PRN PRN Reason: Dysuria Stop: 07/26/19 10:22 Polyethylene Glycol (Miralax Powder Packet) 17 gm PO TID PRN PRN Reason: Constipation Stop: 07/20/19 20:25 Potassium Chloride (Klor-Con M20) 40 meq PO BID [facility] Stop: 07/22/19 20:59 Last Admin: 06/28/19 12:10 Dose: 40 meq Documented by: Nomi Multivit/Artemus/Iron/Folic Ac ( Vitamin) 1 tab PO DAILY [facility] Stop: 07/24/19 08:59 Last Admin: 06/28/19 12:10 Dose: 1 tab Documented by: Promethazine HCl (Phenergan) 12.5 mg IM Q6H PRN PRN Reason: Nausea Stop: 07/20/19 20:25 Quetiapine Fumarate (Seroquel) 12.5 mg PO 0900,1400 [facility] Stop: 07/21/19 08:59 Last Admin: 06/28/19 14:47 Dose: 12.5 mg Documented by: Quetiapine Fumarate (Seroquel) 100 mg PO [facility] Stop: 07/20/19 20:59 Last Admin: 06/27/19 20:59 Dose: 100 mg Documented by: Topiramate (Qudexy Xr) 1 ea PO BIDM [facility] Stop: 07/21/19 16:59 Last Admin: 06/28/19 12:12 Dose: 1 ea Documented by: Trazodone HCl (Desyrel) 150 mg PO [facility] Stop: 07/20/19 20:59 Last Admin: 06/27/19 20:58 Dose: 150 mg Documented by: Triamcinolone Acetonide (Kenalog 0.1%) 1 appln TOP TID PRN PRN Reason: Itching Stop: 07/20/19 20:25 Venlafaxine HCl (Effexor Extended Release) 37.5 mg PO QAM [facility] Stop: 07/21/19 08:59 Last Admin: 06/28/19 12:09 Dose: 37.5 mg Documented by: Venlafaxine HCl (Effexor Extended Release) 150 mg PO QAM [facility] Stop: 07/21/19 08:59 Last Admin: 06/28/19 12:09 Dose: 150 mg Documented by: PG Care Time/CCT Total # of Minutes Spent Total Time Spent with Patient: Total time spent is greater than 50% in coordination of care (as documented) at patient's floor/unit and/or counseling patient: Coding Level of Care Code 39997 Subseq Hosp Care Lvl 2 Diagnoses Septicemia A41.9 MRSA bacteremia R78.81 Recurrent UTI N39.0 Sacral decubitus ulcer L89.159 History of pulmonary embolism Z86.711 Hypothyroidism E03.9 Hypothyroidism type: unspecified Nocturnal hypoxemia G47.34 Prediabetes R73.03 Bipolar 1 disorder F31.9 Asthma J45.40 Asthma severity: moderate Asthma persistence: persistent Asthma complication type: uncomplicated Chest pain R07.9 DVT prophylaxis Z29.9 (1) Hypothyroidism Hypothyroidism type: unspecified Qualified Code(s): E03.9 - Hypothyroidism, unspecified (2) Asthma Asthma severity: moderate Asthma persistence: persistent Asthma complication type: uncomplicated Qualified Code(s): J45.40 - Moderate persistent asthma, uncomplicated
[2019-06-28] MEDS: FAMOTIDINE 40 MG TABLET PO SCH (21:22)
[2019-06-28] MEDS: QUETIAPINE FUMARATE 100 MG TABLET PO SCH (21:22)
[2019-06-28] MEDS: TRAZODONE HCL 50 MG TAB PO SCH (21:23)
[2019-06-28] MEDS: LORATADINE 10 MG TAB PO SCH (21:23)
[2019-06-28] MEDS: ACETAMINOPHEN 500 MG TAB PO PRN (22:34)
[2019-06-29] MEDS: ACETAMINOPHEN 500 MG TAB PO PRN (05:31)
[2019-06-29] MEDS: LEVOTHYROXINE SODIUM 88 MCG TABLET PO SCH (05:31)
--- NOTE | 2019-06-29 09:39 | Surgery Progress Note ---
Date of Service June 29, 2019 Assessment & Plan (1) Aftercare following surgery: POD#1 port removal, cultures pending patient may shower wound instructions reviewed surgery will sign off Subjective 34 y/o female POD#1 port removal for catheter associated sepsis. Doing well, minimal pain. Physical Exam Constitutional: WD/WN, vitals as above Skin: + incision (healing well, no seroma/hematoma, no infection) Results & Data Vital Signs (Past 12 Hours) Vital Signs Temp Pulse Pulse Resp BP Pulse Ox 06/29/19 07:07 36.6 C 85 18 108/72 97 06/28/19 22:18 36.8 C 104 H 20 119/76 97 PG Care Time/CCT Total # of Minutes Spent Total Time Spent with Patient: Total time spent is greater than 50% in coordina tion of care (as documented) at patient's floor/unit and/or counseling patient: Coding Level of Care Code None Diagnoses Aftercare following surgery Z48.89
[2019-06-29 10:04] LABS: Basophils # (auto) 0.04 K/uL (0-0.2); Basophils % (auto) 0.6 %; Eosinophils # (auto) 0.33 K/uL (0-0.5); Eosinophils % (auto) 4.6 %; Hematocrit (blood only) 31.3 % (37-47); Hemoglobin 9.5 g/dL (12.0-16.0); Immature Granulocytes # (auto) 0.09 K/uL (0.00-0.02); Immature Granulocytes % (auto) 1.3 %; Lymphocytes # (auto) 1.94 K/uL (1.2-3.4); Lymphocytes % (auto) 27.1 %; Mean Corpuscular Hemoglobin 27.2 pg (25-34); Mean Corpuscular Hgb Conc 30.4 g/dL (32-36); Mean Corpuscular Volume 89.7 fL (80-100); Mean Platelet Volume 10.2 fL (7.4-10.4); Monocytes # (auto) 0.69 K/uL (0.11-0.59); Monocytes % (auto) 9.7 %; Neutrophils # (auto) 4.06 K/uL (1.4-6.5); Neutrophils % (auto) 56.7 %; Platelet Count 357 K/uL (130-400); RDW Coefficient of Variation 17.1 % (11.5-14.5); Red Blood Count 3.49 M/uL (4.2-5.4); White Blood Count 7.15 K/uL (4.8-10.8)
[2019-06-29] MEDS: QUETIAPINE FUMARATE 25 MG TABLET PO SCH ×2 (10:18→13:23)
[2019-06-29] MEDS: VENLAFAXINE HCL XR 150 MG CAPXR PO SCH (10:18)
[2019-06-29] MEDS: MEXILETINE HCL 150 MG CAPSULE PO SCH ×3 (10:19→17:12)
[2019-06-29] MEDS: HYOSCYAMINE SULFATE 0.125 MG TAB PO SCH ×3 (10:20→20:50)
[2019-06-29] MEDS: POTASSIUM CHLORIDE 20 MEQ TABCR PO SCH ×2 (10:20→20:51)
[2019-06-29] MEDS: CYANOCOBALAMIN 500 MCG TABLET (VITAMIN B-12) PO SCH (10:21)
[2019-06-29] MEDS: PANTOprazole 40 MG TAB PO SCH (10:21)
[2019-06-29] MEDS: VENLAFAXINE HCL XR 37.5 MG CAPXR PO SCH (10:21)
[2019-06-29] MEDS: FLUTICASONE/VILANTEROL 200/25MCG 14 PUFFS/INHALER INH SCH (10:22)
[2019-06-29 10:23] LABS: BUN Creatinine Ratio 20.8 (10-20); Calcium 8.8 mg/dl (8.5-10.1); Est GFR (African American) 113.1; Est GFR (Non-African American) 97.6; Potassium 3.7 mmol/L (3.5-5.1)
[2019-06-29] MEDS: TOPIRAMATE 200 MG PO SCH ×2 (10:23→17:13)
[2019-06-29] MEDS: BREXPIPRAZOLE 4 MG PO SCH (10:23)
[2019-06-29] MEDS: PRENATAL VITAMIN 1 TAB PO SCH (10:24)
[2019-06-29] MEDS: DICLOFENAC SOD 1% GEL 100 GM TUBE EXT SCH ×4 (10:25→20:02)
[2019-06-29] MEDS: INSULIN ASPART 100 UNITS/ML 3 ML PEN SC SCH ×4 (10:27→21:30)
--- NOTE | 2019-06-29 10:59 | Psychiatric Consultation ---
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 Documented by: [id number] Admin: 06/25/19 16:17 Dose: 0.125 mg Documented by: [id number] Admin: 06/25/19 09:13 Dose: 0.125 mg Documented by: [id number] Admin: 06/24/19 20:23 Dose: 0.125 mg Documented by: [id number] Admin: 06/24/19 13:17 Dose: 0.125 mg Documented by: [id number] Admin: 06/24/19 08:46 Dose: 0.125 mg Documented by: [id number] Admin: 06/23/19 20:28 Dose: 0.125 mg Documented by: [id number] Admin: 06/23/19 12:44 Dose: 0.125 mg Documented by: [id number] Admin: 06/23/19 08:52 Dose: 0.125 mg Documented by: [id number] Admin: 06/22/19 20:21 Dose: 0.125 mg Documented by: [id number] Admin: 06/22/19 13:07 Dose: 0.125 mg Documented by: [id number] Admin: 06/22/19 09:42 Dose: 0.125 mg Documented by: [id number] Admin: 06/21/19 20:52 Dose: 0.125 mg Documented by: [id number] Admin: 06/21/19 14:39 Dose: 0.125 mg Documented by: [id number] Admin: 06/21/19 09:41 Dose: 0.125 mg Documented by: [id number] Admin: 06/20/19 22:18 Dose: 0.125 mg Documented by: [id number] Daptomycin 425 mg/ Syringe 8.5 mls @ 4.25 mls/min IV Q24H [facility]; Protocol Stop: 07/04/19 17:59 Last Admin: 06/28/19 15:29 Dose: 4.25 mls/min Documented by: [id number] Admin: 06/27/19 14:13 Dose: 4.25 mls/min Documented by: [id number] Admin: 06/26/19 14:14 Dose: 4.25 mls/min Documented by: [id number] Admin: 06/25/19 17:54 Dose: 4.25 mls/min Documented by: [id number] Admin: 06/24/19 18:05 Dose: 4.25 mls/min Documented by: [id number] Admin: 06/23/19 18:49 Dose: 4.25 mls/min Documented by: [id number] Admin: 06/22/19 18:12 Dose: 4.25 mls/min Documented by: [id number] Admin: 06/21/19 17:47 Dose: 4.25 mls/min Documented by: [id number] Insulin Aspart (Novolog Flexpen) 0 units SC ACHS [facility] Stop: 07/20/19 20:59 Last Admin: 06/29/19 10:27 Dose: 4 units Documented by: [id number] Cosigned by: [id number] Admin: 06/28/19 21:38 Dose: Not Given Documented by: [id number] Cosigned by: [id number] Admin: 06/28/19 17:47 Dose: 5 units Documented by: [id number] Cosigned by: [id number] Admin: 06/28/19 12:39 Dose: 3 units Documented by: [id number] Cosigned by: [id number] Admin: 06/28/19 07:55 Dose: Not Given Documented by: [id number] Cosigned by: [id number] Admin: 06/27/19 21:16 Dose: Not Given Documented by: [id number] Cosigned by: [id number] Admin: 06/27/19 17:47 Dose: 4 units Documented by: [id number] Cosigned by: [id number] Admin: 06/27/19 12:37 Dose: 5 units Documented by: [id number] Cosigned by: [id number] Admin: 06/27/19 09:04 Dose: 4 units Documented by: [id number] Cosigned by: [id number] Admin: 06/26/19 20:50 Dose: 1 units Documented by: [id number] Cosigned by: [id number] Admin: 06/26/19 18:01 Dose: 5 units Documented by: [id number] Cosigned by: [id number] Admin: 06/26/19 12:51 Dose: 4 units Documented by: [id number] Cosigned by: [id number] Admin: 06/26/19 09:18 Dose: 1 units Documented by: [id number] Cosigned by: [id number] Admin: 06/25/19 21:52 Dose: Not Given Documented by: [id number] Cosigned by: [id number] Admin: 06/25/19 17:47 Dose: 4 units Documented by: [id number] Cosigned by: [id number] Admin: 06/25/19 13:34 Dose: 4 units Documented by: [id number] Cosigned by: [id number] Admin: 06/25/19 10:09 Dose: Not Given Documented by: [id number] Cosigned by: [id number] Admin: 06/24/19 22:21 Dose: Not Given Documented by: [id number] Cosigned by: [id number] Admin: 06/24/19 18:04 Dose: Not Given Documented by: [id number] Cosigned by: [id number] Admin: 06/24/19 13:20 Dose: 1 units Documented by: [id number] Cosigned by: [id number] Admin: 06/24/19 09:01 Dose: Not Given Documented by: [id number] Cosigned by: [id number] Admin: 06/23/19 20:47 Dose: Not Given Documented by: [id number] Cosigned by: [id number] Admin: 06/23/19 17:37 Dose: 4 units Documented by: [id number] Cosigned by: [id number] Admin: 06/23/19 12:42 Dose: 4 units Documented by: [id number] Cosigned by: [id number] Admin: 06/23/19 08:57 Dose: 2 units Documented by: [id number] Cosigned by: [id number] Admin: 06/22/19 21:05 Dose: 1 units Documented by: [id number] Cosigned by: [id number] Admin: 06/22/19 18:03 Dose: Not Given Documented by: [id number] Cosigned by: [id number] Admin: 06/22/19 13:09 Dose: 7 units Documented by: [id number] Cosigned by: [id number] Admin: 06/22/19 09:10 Dose: 5 units Documented by: [id number] Cosigned by: [id number] Admin: 06/21/19 20:50 Dose: 1 units Documented by: [id number] Cosigned by: [id number] Admin: 06/21/19 17:33 Dose: 4 units Documented by: [id number] Cosigned by: [id number] Admin: 06/21/19 12:34 Dose: 5 units Documented by: [id number] Cosigned by: [id number] Admin: 06/21/19 09:45 Dose: 3 units Documented by: [id number] Cosigned by: [id number] Admin: 06/20/19 22:16 Dose: 2 units Documented by: [id number] Cosigned by: [id number] Levothyroxine Sodium (Synthroid) 88 mcg PO DAILYBB [facility] Stop: 07/21/19 06:29 Last Admin: 06/29/19 05:31 Dose: 88 mcg Documented by: [id number] Admin: 06/28/19 06:03 Dose: 88 mcg Documented by: [id number] Admin: 06/27/19 06:21 Dose: 88 mcg Documented by: [id number] Admin: 06/26/19 05:58 Dose: 88 mcg Documented by: [id number] Admin: 06/25/19 06:19 Dose: 88 mcg Documented by: [id number] Admin: 06/24/19 06:13 Dose: 88 mcg Documented by: [id number] Admin: 06/23/19 06:03 Dose: 88 mcg Documented by: [id number] Admin: 06/22/19 06:42 Dose: 88 mcg Documented by: [id number] Admin: 06/21/19 04:58 Dose: 88 mcg Documented by: [id number] Loratadine (Claritin) 10 mg PO HS [facility] Stop: 07/20/19 20:59 Last Admin: 06/28/19 21:23 Dose: 10 mg Documented by: [id number] Admin: 06/27/19 20:58 Dose: 10 mg Documented by: [id number] Admin: 06/26/19 20:45 Dose: 10 mg Documented by: [id number] Admin: 06/25/19 21:58 Dose: 10 mg Documented by: [id number] Admin: 06/24/19 20:24 Dose: 10 mg Documented by: [id number] Admin: 06/23/19 20:26 Dose: 10 mg Documented by: [id number] Admin: 06/22/19 20:20 Dose: 10 mg Documented by: [id number] Admin: 06/21/19 20:52 Dose: 10 mg Documented by: [id number] Admin: 06/20/19 22:21 Dose: Not Given Documented by: [id number] Mexiletine HCl (Mexitil) 300 mg PO TIDM [facility] Stop: 07/21/19 07:59 Last Admin: 06/29/19 10:19 Dose: 300 mg Documented by: [id number] Admin: 06/28/19 16:50 Dose: 300 mg Documented by: [id number] Admin: 06/28/19 12:11 Dose: 300 mg Documented by: [id number] Admin: 06/28/19 11:24 Dose: Not Given Documented by: [id number] Admin: 06/27/19 16:14 Dose: 300 mg Documented by: [id number] Admin: 06/27/19 12:37 Dose: 300 mg Documented by: [id number] Admin: 06/27/19 08:43 Dose: 300 mg Documented by: [id number] Admin: 06/26/19 16:43 Dose: 300 mg Documented by: [id number] Admin: 06/26/19 12:47 Dose: 300 mg Documented by: [id number] Admin: 06/26/19 08:26 Dose: 300 mg Documented by: [id number] Admin: 06/25/19 17:51 Dose: 300 mg Documented by: [id number] Admin: 06/25/19 15:14 Dose: Not Given Documented by: [id number] Admin: 06/25/19 09:13 Dose: 300 mg Documented by: [id number] Admin: 06/24/19 16:18 Dose: 300 mg Documented by: [id number] Admin: 06/24/19 13:18 Dose: 300 mg Documented by: [id number] Admin: 06/24/19 08:47 Dose: 300 mg Documented by: [id number] Admin: 06/23/19 17:01 Dose: 300 mg Documented by: [id number] Admin: 06/23/19 12:44 Dose: 300 mg Documented by: [id number] Admin: 06/23/19 08:54 Dose: 300 mg Documented by: [id number] Admin: 06/22/19 16:22 Dose: 300 mg Documented by: [id number] Admin: 06/22/19 13:07 Dose: 300 mg Documented by: [id number] Admin: 06/22/19 09:05 Dose: 300 mg Documented by: [id number] Admin: 06/21/19 17:48 Dose: 300 mg Documented by: [id number] Admin: 06/21/19 12:39 Dose: 300 mg Documented by: [id number] Admin: 06/21/19 09:42 Dose: 300 mg Documented by: [id number] Ondansetron HCl (Zofran Odt) 8 mg PO Q6H PRN PRN Reason: Nausea Stop: 07/20/19 20:25 Last Admin: 06/24/19 20:20 Dose: 8 mg Documented by: [id number] Admin: 06/21/19 09:48 Dose: 8 mg Documented by: [id number] Ondansetron HCl (Zofran) 4 mg IV Q6H PRN PRN Reason: Nausea Stop: 07/20/19 20:25 Last Admin: 06/27/19 10:50 Dose: 4 mg Documented by: [id number] Admin: 06/27/19 03:59 Dose: 4 mg Documented by: [id number] Admin: 06/26/19 22:11 Dose: 4 mg Documented by: [id number] Admin: 06/26/19 16:44 Dose: 4 mg Documented by: [id number] Pantoprazole Sodium (Protonix) 40 mg PO QAM [facility] Stop: 07/21/19 08:59 Last Admin: 06/29/19 10:21 Dose: 40 mg Documented by: [id number] Admin: 06/28/19 12:10 Dose: 40 mg Documented by: [id number] Admin: 06/27/19 08:45 Dose: 40 mg Documented by: [id number] Admin: 06/26/19 08:27 Dose: 40 mg Documented by: [id number] Admin: 06/25/19 09:13 Dose: 40 mg Documented by: [id number] Admin: 06/24/19 08:46 Dose: 40 mg Documented by: [id number] Admin: 06/23/19 08:51 Dose: 40 mg Documented by: [id number] Admin: 06/22/19 09:05 Dose: 40 mg Documented by: [id number] Admin: 06/21/19 09:42 Dose: 40 mg Documented by: [id number] Potassium Chloride (Klor-Con M20) 40 meq PO BID [facility] Stop: 07/22/19 20:59 Last Admin: 06/29/19 10:20 Dose: 40 meq Documented by: [id number] Admin: 06/28/19 21:23 Dose: 40 meq Documented by: [id number] Admin: 06/28/19 12:10 Dose: 40 meq Documented by: [id number] Admin: 06/27/19 20:59 Dose: 40 meq Documented by: [id number] Admin: 06/27/19 08:44 Dose: 40 meq Documented by: [id number] Admin: 06/26/19 20:43 Dose: 40 meq Documented by: [id number] Admin: 06/26/19 08:27 Dose: 40 meq Documented by: [id number] Admin: 06/25/19 22:00 Dose: 40 meq Documented by: [id number] Admin: 06/25/19 09:12 Dose: 40 meq Documented by: [id number] Admin: 06/24/19 20:24 Dose: 40 meq Documented by: [id number] Admin: 06/24/19 08:46 Dose: 40 meq Documented by: [id number] Admin: 06/23/19 20:28 Dose: 40 meq Documented by: [id number] Admin: 06/23/19 12:41 Dose: 40 meq Documented by: [id number] Admin: 06/22/19 20:20 Dose: 40 meq Documented by: [id number] Prenat Multivit/[place]/Iron/Folic Ac ( Vitamin) 1 tab PO DAILY [facility] Stop: 02/19/20 08:59 Last Admin: 06/29/19 10:24 Dose: 1 tab Documented by: [id number] Admin: 06/28/19 12:10 Dose: 1 tab Documented by: [id number] Admin: 06/27/19 08:45 Dose: 1 tab Documented by: [id number] Admin: 06/26/19 08:25 Dose: 1 tab Documented by: [id number] Admin: 06/25/19 09:14 Dose: 1 tab Documented by: [id number] Admin: 06/24/19 08:44 Dose: 1 tab Documented by: [id number] Quetiapine Fumarate (Seroquel) 12.5 mg PO 0900,1400 [facility] Stop: 07/21/19 08:59 Last Admin: 06/29/19 10:18 Dose: 12.5 mg Documented by: [id number] Admin: 06/28/19 14:47 Dose: 12.5 mg Documented by: [id number] Admin: 06/28/19 12:10 Dose: 12.5 mg Documented by: [id number] Admin: 06/27/19 14:13 Dose: 12.5 mg Documented by: [id number] Admin: 06/27/19 08:45 Dose: 12.5 mg Documented by: [id number] Admin: 06/26/19 15:57 Dose: 12.5 mg Documented by: [id number] Admin: 06/26/19 08:25 Dose: 12.5 mg Documented by: [id number] Admin: 06/25/19 16:17 Dose: 12.5 mg Documented by: [id number] Admin: 06/25/19 09:12 Dose: 12.5 mg Documented by: [id number] Admin: 06/24/19 13:17 Dose: 12.5 mg Documented by: [id number] Admin: 06/24/19 08:45 Dose: 12.5 mg Documented by: [id number] Admin: 06/23/19 12:45 Dose: 12.5 mg Documented by: [id number] Admin: 06/23/19 08:53 Dose: 12.5 mg Documented by: [id number] Admin: 06/22/19 13:11 Dose: 12.5 mg Documented by: [id number] Admin: 06/22/19 09:06 Dose: 12.5 mg Documented by: [id number] Admin: 06/21/19 14:39 Dose: 12.5 mg Documented by: [id number] Admin: 06/21/19 09:43 Dose: 12.5 mg Documented by: [id number] Quetiapine Fumarate (Seroquel) 100 mg PO HS [facility] Stop: 07/20/19 20:59 Last Admin: 06/28/19 21:22 Dose: 100 mg Documented by: [id number] Admin: 06/27/19 20:59 Dose: 100 mg Documented by: [id number] Admin: 06/26/19 20:46 Dose: 100 mg Documented by: [id number] Admin: 06/25/19 22:01 Dose: 100 mg Documented by: [id number] Admin: 06/24/19 20:23 Dose: 100 mg Documented by: [id number] Admin: 06/23/19 20:29 Dose: 100 mg Documented by: [id number] Admin: 06/22/19 20:23 Dose: 100 mg Documented by: [id number] Admin: 06/21/19 20:52 Dose: 100 mg Documented by: [id number] Admin: 06/20/19 22:18 Dose: 100 mg Documented by: [id number] Topiramate (Qudexy Xr) 1 ea PO BIDM [facility] Stop: 07/21/19 16:59 Last Admin: 06/29/19 10:23 Dose: 1 ea Documented by: [id number] Admin: 06/28/19 16:50 Dose: 1 ea Documented by: [id number] Admin: 06/28/19 12:12 Dose: 1 ea Documented by: [id number] Admin: 06/27/19 16:14 Dose: 1 ea Documented by: [id number] Admin: 06/27/19 08:47 Dose: 1 ea Documented by: [id number] Admin: 06/26/19 16:44 Dose: 1 ea Documented by: [id number] Admin: 06/26/19 08:30 Dose: 1 ea Documented by: [id number] Admin: 06/25/19 17:51 Dose: 1 ea Documented by: [id number] Admin: 06/25/19 09:14 Dose: 1 ea Documented by: [id number] Admin: 06/24/19 16:18 Dose: 1 ea Documented by: [id number] Admin: 06/24/19 08:45 Dose: 1 ea Documented by: [id number] Admin: 06/23/19 17:02 Dose: 1 ea Documented by: [id number] Admin: 06/23/19 08:56 Dose: 1 ea Documented by: [id number] Admin: 06/22/19 16:20 Dose: 1 ea Documented by: [id number] Admin: 06/22/19 09:08 Dose: 1 ea Documented by: [id number] Admin: 06/21/19 18:08 Dose: 1 ea Documented by: [id number] Trazodone HCl (Desyrel) 150 mg PO HS [facility] Stop: 07/20/19 20:59 Last Admin: 06/28/19 21:23 Dose: 150 mg Documented by: [id number] Admin: 06/27/19 20:58 Dose: 150 mg Documented by: [id number] Admin: 06/26/19 20:48 Dose: 150 mg Documented by: [id number] Admin: 06/25/19 21:59 Dose: 150 mg Documented by: [id number] Admin: 06/24/19 20:24 Dose: 150 mg Documented by: [id number] Admin: 06/22/19 20:23 Dose: 150 mg Documented by: [id number] Admin: 06/21/19 20:52 Dose: 150 mg Documented by: [id number] Admin: 06/20/19 22:17 Dose: 150 mg Documented by: [id number] Venlafaxine HCl (Effexor Extended Release) 37.5 mg PO QA [facility] Stop: 07/21/19 08:59 Last Admin: 06/29/19 10:21 Dose: 37.5 mg Documented by: [id number] Admin: 06/28/19 12:09 Dose: 37.5 mg Documented by: [id number] Admin: 06/27/19 08:44 Dose: 37.5 mg Documented by: [id number] Admin: 06/26/19 08:27 Dose: 37.5 mg Documented by: [id number] Admin: 06/25/19 09:13 Dose: 37.5 mg Documented by: [id number] Admin: 06/24/19 08:46 Dose: 37.5 mg Documented by: [id number] Admin: 06/23/19 08:52 Dose: 37.5 mg Documented by: [id number] Admin: 06/22/19 09:06 Dose: 37.5 mg Documented by: [id number] Admin: 06/21/19 09:42 Dose: 37.5 mg Documented by: [id number] Venlafaxine HCl (Effexor Extended Release) 150 mg PO QAM [facility] Stop: 07/21/19 08:59 Last Admin: 06/29/19 10:18 Dose: 150 mg Documented by: [id number] Admin: 06/28/19 12:09 Dose: 150 mg Documented by: [id number] Admin: 06/27/19 08:44 Dose: 150 mg Documented by: [id number] Admin: 06/26/19 08:26 Dose: 150 mg Documented by: [id number] Admin: 06/25/19 09:12 Dose: 150 mg Documented by: [id number] Admin: 06/24/19 08:45 Dose: 150 mg Documented by: [id number] Admin: 06/23/19 08:51 Dose: 150 mg Documented by: [id number] Admin: 06/22/19 09:07 Dose: 150 mg Documented by: [id number] Admin: 06/21/19 09:42 Dose: 150 mg Documented by: [id number] Coding Level of Care Code [address] [facility] Intl Hosp Care Lvl 3
[2019-06-29] MEDS: DAPTOmycin 425 MG in SYRINGE 0 ML IV SCH (13:24)
[2019-06-29] MEDS: ACETAMINOPHEN 1,000 MG/100 ML VIAL IV PRN (16:51)
--- NOTE | 2019-06-29 17:03 | Hospitalist Progress Note ---
Date of Service June 29, 2019 Assessment & Plan (1) Septicemia: - Presents with fevers, tachycardia, UTI - now with confirmed MRSA Bacteremia; Afebrile since 06/20 - Multiple BCx with consistent bacteremia blood cultures 06/23 positive for MRSA blood cultures 06/26 positive for gram positive cocci, likely MRSA blood cultures repeated on 06/29 to document clearance - Continue Daptomycin - limitations due to resistance and allergies - will need weekly CBC, CMP, ESR Dr. Charlton already recommending 6 week course - Echo - difficult study due to body habitus - no vegetation seen but cannot be completely R/Od repeat cultures were all positive from port, negative from peripheral draw port removed on 06/[address] Bain if cultures on 06/29 negative at 48 hours plan for PICC line Monday morning for the 6 week duration of treatment no fever, feeling a lot better since port removed yesterday (2) MRSA bacteremia: - As above plan for 6 weeks of therapy from negative cultures, still awaiting negative cultures repeat cultures on 06/29 (3) Recurrent UTI: - Suprapubic catheter associated UTI - causing MRSA Bacteremia - Catheter exchanged in ER by mom on day of admit - Continue Renacidin bladder wash HS and Meade catheter flushes every morning - UCx with MRSA and Enterococcus faecalis -- Biogram suggests approx. 75% cross-coverage with Dapto - however all other sensitivities are patient allergies - Treatment as above (4) Sacral decubitus ulcer: - WCC following - apreciate assistance - continue to offload pressure and dressing as recommended - On low flow mattress (5) History of pulmonary embolism: - Continue Eliquis (6) Hypothyroidism: - TSH 2.1 - Continue Levothyroxine 88 mcg daily (7) Nocturnal hypoxemia: - Continue chronic O2 HS - can add humidification as she reports a nose bleed/dry nose/mouth (8) Prediabetes: - A1c 6.1 - Hyperglycemia initially but improved - this was likely due to infection -- She states she does have higher BSGs at home and isn't eating well here due to limited options - can give a regular diet - Was on Metformin but this was stopped due to GI issues; she would like to continue insulin at home however did discuss risk of hypoglycemia as her A1c would not warrant such an aggressive approach at this current time - Did discuss at least checking her glucose as she reports dizziness at home and she feels this is related to elevated sugars - hospice educator consult - appreciate discussion as mother is also interested in just better understanding of this condition -- Need Rx for accu-chek guide glucose meter, test strips for once daily check, fastclix lancets (drums) (9) Bipolar 1 disorder: - Bipolar I/Schizoaffective Disorder/Anxiety/PTSD/Insomnia - Continue Benztropine 1 mg TID, Haloperidol 2.5 mg IM BID PRN, Hydroxyzine 25 mg QID PRN, Mexiletine 300 mg TID, Seroquel 100 mg HS, Topamax BID, Trazodone 150 mg HS, and Venlafaxine 187.5 mg daily (10) Asthma: - No exacerbation at this time - Albuterol PRN; Fluticasone/Vilanterol daily (11) Chest pain: - Recurrent, intermittent, usually self-limiting L sided CP - CTA - normal; echocardiogram without wall motion abnormalities; EKG normal and was repeated today - Not relieved with GI cocktail - Does report sometimes resolves with Tylenol - so likely this is a MS pain - costochondritis? -- Pain on 06/25 reproducible around old port incision - will trial Voltaren gel to this area (12) DVT prophylaxis: Eliquis Disposition - Await new cultures; D/C pending sterility Subjective patient reports she is feeling much much better today ever since getting port removed she has had no headache, no chest pain, more energy discussed that it was likely a focus of infection, like draining abscess, makes sense she would feel better eating well, sleeping better appreciate psychiatry consult patient denies any suicidal thoughts, far less anxious, she is smiling today blood cultures from 06/27 and 06/28 persistently positive on review, new cultures drawn today Review of Systems Review of Systems: All systems reviewed & are unremarkable except as noted in HPI & below Constitutional: no fever, no chills and no sweats Respiratory: no cough and no dyspnea Cardiovascular: no chest pain Gastrointestinal: no abdominal pain, no nausea, no vomiting, no constipation and no diarrhea/loose stools Neurologic: no headache(s) Psychiatric: no depression, no suicidal ideation and no anxiety Physical Exam Constitutional: WD/WN, vitals as above + obese Eyes: PERRL, conjunctivae normal, anicteric sclerae ENMT: external ear and nose normal, oropharynx normal Neck: trachea midline, no thyromegaly Respiratory: normal respiratory effort, lungs clear to auscultation Cardiovascular: RRR, no murmur, no edema Gastrointestinal (Abdomen): normal bowel sounds, soft, nontender, no hepatosplenomegaly Musculoskeletal: no cyanosis or clubbing, extremities motor strength 5/5 Extremities: + amputation noted (bilateral AKA) Skin: no rashes, warm and dry Neurologic: patellar DTR's 2+ bilat, sensation intact and PERRL, EOMI, accommodation nl, no face palsy, no dysarthria Psychiatric: Orientation: alert and oriented x 3 Lymphatic: no cervical or axillary lymphadenopathy Results & Data Vital Signs (Past 12 Hours) Vital Signs Temp Pulse Pulse Resp BP Pulse Ox 06/29/19 15:19 36.9 C 94 H 20 119/70 96 06/29/19 07:07 36.6 C 85 18 108/72 97 Laboratory Results Microbiology 06/23/19 08:24 Blood Aerobic Blood Culture - Final Staph aureus MRSA 06/23/19 08:24 Blood Anaerobic Blood Culture - Final No growth in Anaerobic bottle after 5 days. 06/22/19 10:04 Blood Aerobic Blood Culture - Final Staph aureus MRSA 06/22/19 10:04 Blood Anaerobic Blood Culture - Final No growth in Anaerobic bottle after 5 days. 06/22/19 10:13 Blood Aerobic Blood Culture - Final Staph aureus MRSA 06/22/19 10:13 Blood Anaerobic Blood Culture - Final No growth in Anaerobic bottle after 5 days. 06/21/19 09:26 Blood Aerobic Blood Culture - Final Staph aureus MRSA 06/21/19 09:26 Blood Anaerobic Blood Culture - Final 06/20/19 17:09 Blood Aerobic Blood Culture - Final Staph aureus MRSA 06/20/19 17:09 Blood Anaerobic Blood Culture - Final 06/28/19 Unknown Catheter Tip, A-port Catheter Tip Culture - Preliminary Staphylococcus aureus 06/28/19 05:19 Blood Aerobic Blood Culture - Preliminary Gram positive cocci clusters 06/28/19 05:19 Blood Anaerobic Blood Culture - Preliminary No growth in Anaerobic bottle after 24 hours. 06/28/19 05:27 Blood Aerobic Blood Culture - Preliminary No growth in Aerobic bottle after 24 hours. 06/28/19 05:27 Blood Anaerobic Blood Culture - Preliminary No growth in Anaerobic bottle after 24 hours. 06/26/19 08:16 Blood Aerobic Blood Culture - Preliminary Staph aureus MRSA 06/26/19 08:16 Blood Anaerobic Blood Culture - Preliminary No growth in Anaerobic bottle after 48 hours. 06/23/19 08:32 Blood Aerobic Blood Culture - Final No growth in Aerobic bottle after 5 days. 06/23/19 08:32 Blood Anaerobic Blood Culture - Final No growth in Anaerobic bottle after 5 days. 06/26/19 08:24 Blood Aerobic Blood Culture - Preliminary No growth in Aerobic bottle after 48 hours. 06/26/19 08:24 Blood Anaerobic Blood Culture - Preliminary No growth in Anaerobic bottle after 48 hours. 06/20/19 18:05 Urine,Suprapubic Urine Culture - Final Staph aureus MRSA Enterococcus faecalis 06/21/19 09:12 Blood Aerobic Blood Culture - Final Staph aureus MRSA 06/21/19 09:12 Blood Anaerobic Blood Culture - Final Staph aureus MRSA 06/20/19 17:05 Blood Aerobic Blood Culture - Final Staph aureus MRSA 06/20/19 17:05 Blood Anaerobic Blood Culture - Final Staph aureus MRSA Medications Administered Current Inpatient Medications Acetaminophen (Tylenol) 1,000 mg PO Q6H PRN PRN Reason: Fever Or Pain Stop: 07/20/19 20:25 Last Admin: 06/29/19 05:31 Dose: 1,000 mg Documented by: Hydrocodone Bitart/Acetaminophen ([place] 5/325) 1 - 2 tab PO Q4H PRN PRN Reason: Pain Stop: 07/04/19 23:41 Last Admin: 06/27/19 08:46 Dose: 2 tab Documented by: Albuterol (Ventolin Hfa) 2 puffs INH Q6 PRN PRN Reason: Shortness Of Breath Or Wheezin Stop: 07/20/19 20:57 Apixaban (Eliquis) 5 mg PO BID [facility] Stop: 07/20/19 20:59 Last Admin: 06/28/19 11:24 Dose: Not Given Documented by: Benzonatate (Tessalon Perle) 200 mg PO TID PRN PRN Reason: Cough Stop: 07/20/19 20:25 Benztropine Mesylate (Cogentin) 1 mg PO TID PRN PRN Reason: Migraine Headache Stop: 07/20/19 20:25 Benztropine Mesylate (Cogentin) 1 mg IM DAILY PRN PRN Reason: Haldol Reaction Stop: 07/20/19 20:25 Brexpiprazole (Rexulti) 1 ea PO QAM [facility] Stop: 07/22/19 08:59 Last Admin: 06/29/19 10:23 Dose: 1 ea Documented by: Cetirizine HCl (Zyrtec) 10 mg PO BID PRN PRN Reason: Allergies or Antibiotics Stop: 07/20/19 20:25 Cyanocobalamin (Vitamin B-12) 1,000 mcg PO QAM [facility] Stop: 07/21/19 08:59 Last Admin: 06/29/19 10:21 Dose: 1,000 mcg Documented by: Dextrose (Dextrose 50%) 25 - 50 ml IV UD PRN; Protocol PRN Reason: Hypoglycemia Protocol Stop: 07/20/19 20:25 Diclofenac Sodium (Voltaren 1% Top) 4 gm EXT QID [facility] Stop: 07/25/19 16:59 Last Admin: 06/29/19 16:12 Dose: Not Given Documented by: Diphenhydramine HCl (Benadryl Capsule) 25 mg PO QID PRN PRN Reason: Allergic Symptoms Stop: 07/20/19 20:25 Last Admin: 06/27/19 10:49 Dose: 25 mg Documented by: Famotidine (Pepcid) 40 mg PO HS [facility] Stop: 07/20/19 20:59 Last Admin: 06/28/19 21:22 Dose: 40 mg Documented by: Fluticasone/Vilanterol (Breo Ellipta 200/25 Mcg Inh) [facility] [place]: 07/21/19 08:59 Last Admin: 06/29/19 10:22 Dose: 1 puffs Documented by: Glucagon (Glucagen) 1 mg SQ UD PRN; Protocol PRN Reason: Hypoglycemia Protocol Stop: 07/20/19 20:25 Glucose (Dex4 Glucose) 4 - 8 tabs PO UD PRN; Protocol PRN Reason: Hypoglycemia Protocol Stop: 07/20/19 20:25 Glucose (Glucose 40%) 15 - 30 gm PO UD PRN; Protocol PRN Reason: Hypoglycemia Protocol Stop: 07/20/19 20:25 Haloperidol Lactate (Haldol) 2.5 mg IM BID PRN PRN Reason: acute headaches Stop: 07/20/19 20:25 Heparin Sodium (Porcine) (Heparin Sod 100 Unit/Ml Flush) 5 ml FLUSH PRN PRN PRN Reason: Flush Stop: 07/20/19 22:44 Last Admin: 06/28/19 05:20 Dose: 5 ml Documented by: Hydroxyzine HCl (Vistaril) 25 mg PO QID PRN PRN Reason: Anxiety Stop: 07/20/19 20:25 Last Admin: 06/27/19 12:37 Dose: 25 mg Documented by: Hyoscyamine (Levsin) 0.125 mg PO TID [facility] Stop: 07/20/19 20:59 Last Admin: 06/29/19 13:23 Dose: 0.125 mg Documented by: Daptomycin 425 mg/ Syringe 8.5 mls @ 4.25 mls/min IV Q24H [facility]; Protocol Stop: 07/04/19 17:59 Last Admin: 06/29/19 13:24 Dose: 4.25 mls/min Documented by: Acetaminophen (Ofirmev) 1,000 mg in 100 mls @ 400 mls/hr IV Q8H PRN PRN Reason: Pain from surgical site Stop: 07/02/19 16:17 Last Admin: 06/29/19 16:51 Dose: 400 mls/hr Documented by: Insulin Aspart (Novolog Flexpen) 0 units SC [facility] Stop: 07/20/19 20:59 Last Admin: 06/29/19 13:26 Dose: 5 units Documented by: Levalbuterol HCl (Xopenex 0.63 Mg/3 Ml Neb) 0.63 mg INH Q6H PRN PRN Reason: Shortness Of Breath Stop: 07/20/19 20:25 Levothyroxine Sodium (Synthroid) 88 mcg PO DAILYBB [facility] Stop: 07/21/19 06:29 Last Admin: 06/29/19 05:31 Dose: 88 mcg Documented by: Lidocaine (Xylocaine 5% Oint) 1 appln TOP QID PRN PRN Reason: Pain Stop: 07/20/19 20:25 Loratadine (Claritin) 10 mg PO HS [facility] Stop: 07/20/19 20:59 Last Admin: 06/28/19 21:23 Dose: 10 mg Documented by: Magnesium Hydroxide (Milk Of Magnesia) 30 ml PO Q6H PRN PRN Reason: Constipation Stop: 07/20/19 20:25 Metoclopramide HCl (Reglan) 10 mg PO BID PRN PRN Reason: acute headaches Stop: 07/20/19 20:25 Mexiletine HCl (Mexitil) 300 mg PO TIDM [facility] Stop: 07/21/19 07:59 Last Admin: 06/29/19 13:22 Dose: 300 mg Documented by: Miscellaneous (Carbohydrates For Hypoglycemia) 15 - 30 gm PO UD PRN PRN Reason: Hypoglycemia Protocol Stop: 07/20/19 20:25 Nystatin (Mycostatin) 1 appln EXT TID PRN PRN Reason: Skin Irritation Stop: 07/20/19 20:25 Nystatin/Triamcinolone Acetonide (Mycolog Ii) 1 appln EXT TID PRN PRN Reason: AFFECTED SKIN Stop: 07/20/19 20:25 Ondansetron HCl (Zofran Odt) 8 mg PO Q6H PRN PRN Reason: Nausea Stop: 07/20/19 20:25 Last Admin: 06/24/19 20:20 Dose: 8 mg Documented by: Ondansetron HCl (Zofran) 4 mg IV Q6H PRN PRN Reason: Nausea Stop: 07/20/19 20:25 Last Admin: 06/27/19 10:50 Dose: 4 mg Documented by: Pantoprazole Sodium (Protonix) 40 mg PO QAM [facility] Stop: 07/21/19 08:59 Last Admin: 06/29/19 10:21 Dose: 40 mg Documented by: Phenazopyridine HCl (Pyridium) 200 mg PO TID PRN PRN Reason: Dysuria Stop: 07/26/19 10:22 Polyethylene Glycol (Miralax Powder Packet) 17 gm PO TID PRN PRN Reason: Constipation Stop: 07/20/19 20:25 Potassium Chloride (Klor-Con M20) 40 meq PO BID [facility] Stop: 07/22/19 20:59 Last Admin: 06/29/19 10:20 Dose: 40 meq Documented by: Prenat Multivit/Tray Line Worker/Iron/Folic Ac ( Vitamin) 1 tab PO DAILY [facility] Stop: 07/24/19 08:59 Last Admin: 06/29/19 10:24 Dose: 1 tab Documented by: Promethazine HCl (Phenergan) 12.5 mg IM Q6H PRN PRN Reason: Nausea Stop: 07/20/19 20:25 Quetiapine Fumarate (Seroquel) 12.5 mg PO 0900,1400 [facility] Stop: 07/21/19 08:59 Last Admin: 06/29/19 13:23 Dose: 12.5 mg Documented by: Quetiapine Fumarate (Seroquel) 100 mg PO [facility] Stop: 07/20/19 20:59 Last Admin: 06/28/19 21:22 Dose: 100 mg Documented by: Topiramate (Qudexy Xr) 1 ea PO BIDM [facility] Stop: 07/21/19 16:59 Last Admin: 06/29/19 10:23 Dose: 1 ea Documented by: Trazodone HCl (Desyrel) 150 mg PO [facility] Stop: 07/20/19 20:59 Last Admin: 06/28/19 21:23 Dose: 150 mg Documented by: Triamcinolone Acetonide (Kenalog 0.1%) 1 appln TOP TID PRN PRN Reason: Itching Stop: 07/20/19 20:25 Venlafaxine HCl (Effexor Extended Release) 37.5 mg PO QAM [facility] Stop: 07/21/19 08:59 Last Admin: 06/29/19 10:21 Dose: 37.5 mg Documented by: Venlafaxine HCl (Effexor Extended Release) [facility] [place]: 07/21/19 08:59 Last Admin: 06/29/19 10:18 Dose: 150 mg Documented by: PG Care Time/CCT Total # of Minutes Spent Total Time Spent with Patient: Total time spent is greater than 50% in coordination of care (as documented) at patient's floor/unit and/or counseling patient: Coding Level of Care Code 13260 Subseq Hosp Care Lvl 2 Diagnoses Septicemia A41.9 MRSA bacteremia R78.81 Recurrent UTI N39.0 Sacral decubitus ulcer L89.159 History of pulmonary embolism Z86.711 Hypothyroidism E03.9 Hypothyroidism type: unspecified Nocturnal hypoxemia G47.34 Prediabetes R73.03 Bipolar 1 disorder F31.9 Asthma J45.40 Asthma complication type: uncomplicated Asthma persistence: persistent Asthma severity: moderate Chest pain R07.9 DVT prophylaxis Z29.9 (1) Hypothyroidism Hypothyroidism type: unspecified Qualified Code(s): E03.9 - Hypothyroidism, unspecified (2) Asthma Asthma complication type: uncomplicated Asthma persistence: persistent Asthma severity: moderate Qualified Code(s): J45.40 - Moderate persistent asthma, uncomplicated
[2019-06-29] MEDS: ONDANSETRON INJ 2 MG/ML 2 ML VIAL IV PRN (18:19)
[2019-06-29] MEDS: TRAZODONE HCL 50 MG TAB PO SCH (20:50)
[2019-06-29] MEDS: APIXABAN 5 MG TABLET PO SCH (20:50)
[2019-06-29] MEDS: LORATADINE 10 MG TAB PO SCH (20:51)
[2019-06-29] MEDS: QUETIAPINE FUMARATE 100 MG TABLET PO SCH (20:52)
[2019-06-29] MEDS: FAMOTIDINE 40 MG TABLET PO SCH (20:52)
[2019-06-30] MEDS: ACETAMINOPHEN 1,000 MG/100 ML VIAL IV PRN ×2 (02:07→15:50)
[2019-06-30] MEDS: ONDANSETRON INJ 2 MG/ML 2 ML VIAL IV PRN ×3 (02:08→22:53)
[2019-06-30] MEDS: LEVOTHYROXINE SODIUM 88 MCG TABLET PO SCH (06:31)
[2019-06-30] MEDS: MEXILETINE HCL 150 MG CAPSULE PO SCH ×3 (10:30→16:13)
[2019-06-30] MEDS: VENLAFAXINE HCL XR 150 MG CAPXR PO SCH (10:30)
[2019-06-30] MEDS: VENLAFAXINE HCL XR 37.5 MG CAPXR PO SCH (10:31)
[2019-06-30] MEDS: QUETIAPINE FUMARATE 25 MG TABLET PO SCH ×2 (10:31→12:51)
[2019-06-30] MEDS: PANTOprazole 40 MG TAB PO SCH (10:32)
[2019-06-30] MEDS: HYOSCYAMINE SULFATE 0.125 MG TAB PO SCH ×3 (10:32→21:15)
[2019-06-30] MEDS: CYANOCOBALAMIN 500 MCG TABLET (VITAMIN B-12) PO SCH (10:32)
[2019-06-30] MEDS: FLUTICASONE/VILANTEROL 200/25MCG 14 PUFFS/INHALER INH SCH (10:33)
[2019-06-30] MEDS: POTASSIUM CHLORIDE 20 MEQ TABCR PO SCH ×2 (10:33→21:14)
[2019-06-30] MEDS: APIXABAN 5 MG TABLET PO SCH ×2 (10:33→21:14)
[2019-06-30] MEDS: BREXPIPRAZOLE 4 MG PO SCH (10:34)
[2019-06-30] MEDS: PRENATAL VITAMIN 1 TAB PO SCH (10:34)
[2019-06-30] MEDS: TOPIRAMATE 200 MG PO SCH ×2 (10:34→16:13)
[2019-06-30] MEDS: DICLOFENAC SOD 1% GEL 100 GM TUBE EXT SCH ×4 (10:35→21:18)
[2019-06-30] MEDS: INSULIN ASPART 100 UNITS/ML 3 ML PEN SC SCH ×4 (10:36→21:21)
[2019-06-30] MEDS: DAPTOmycin 425 MG in SYRINGE 0 ML IV SCH (12:50)
[2019-06-30] MEDS ORDERED: HYDROmorphone INJ 0.5 MG/0.5 ML SYR IV PRN (13:08)
--- NOTE | 2019-06-30 15:55 | Hospitalist Progress Note ---
Date of Service June 30, 2019 Assessment & Plan (1) Septicemia: - Presents with fevers, tachycardia, UTI - now with confirmed MRSA Bacteremia; Afebrile since 06/20 - Multiple BCx with consistent bacteremia blood cultures 06/23 positive for MRSA blood cultures 06/26 positive for gram positive cocci, likely MRSA culture from port positive for MRSA on 06/28 blood cultures repeated on 06/29 to document clearance - Continue Daptomycin - limitations due to resistance and allergies - will need weekly CBC, CMP, ESR Dr. Charlton already recommending 6 week course - Echo - difficult study due to body habitus - no vegetation seen but cannot be completely R/Od repeat cultures were all positive from port, negative from peripheral draw port removed on 06/[address] Bain if cultures on 06/29 negative at 48 hours plan for PICC line Monday for the 6 week duration of treatment no fever, feeling a lot better since port removed some pain at prior site (2) MRSA bacteremia: - As above plan for 6 weeks of therapy from negative cultures, still awaiting negative cultures repeat cultures on 06/29 (3) Recurrent UTI: - Suprapubic catheter associated UTI - causing MRSA Bacteremia - Catheter exchanged in ER by mom on day of admit - Continue Renacidin bladder wash HS and Meade catheter flushes every morning - UCx with MRSA and Enterococcus faecalis -- Biogram suggests approx. 75% cross-coverage with Dapto - however all other sensitivities are patient allergies - Treatment as above (4) Sacral decubitus ulcer: - WCC following - apreciate assistance - continue to offload pressure and dressing as recommended - On low flow mattress (5) History of pulmonary embolism: - Continue Eliquis (6) Hypothyroidism: - TSH 2.1 - Continue Levothyroxine 88 mcg daily (7) Nocturnal hypoxemia: - Continue chronic O2 HS - can add humidification as she reports a nose bleed/dry nose/mouth (8) Prediabetes: - A1c 6.1 - Hyperglycemia initially but improved - this was likely due to infection -- She states she does have higher BSGs at home and isn't eating well here due to limited options - can give a regular diet - Was on Metformin but this was stopped due to GI issues; she would like to continue insulin at home however did discuss risk of hypoglycemia as her A1c would not warrant such an aggressive approach at this current time - Did discuss at least checking her glucose as she reports dizziness at home and she feels this is related to elevated sugars - special education paraeducator consult - appreciate discussion as mother is also interested in just better understanding of this condition Need Rx for accu-chek guide glucose meter, test strips for once daily check, fastclix lancets (drums) (9) Bipolar 1 disorder: - Bipolar I/Schizoaffective Disorder/Anxiety/PTSD/Insomnia - Continue Benztropine 1 mg TID, Haloperidol 2.5 mg IM BID PRN, Hydroxyzine 25 mg QID PRN, Mexiletine 300 mg TID, Seroquel 100 mg HS, Topamax BID, Trazodone 150 mg HS, and Venlafaxine 187.5 mg daily (10) Asthma: - No exacerbation at this time - Albuterol PRN; Fluticasone/Vilanterol daily (11) Chest pain: - Recurrent, intermittent, usually self-limiting L sided CP - CTA - normal; echocardiogram without wall motion abnormalities; EKG normal and was repeated today - Not relieved with GI cocktail - Does report sometimes resolves with Tylenol - so likely this is a MS pain - costochondritis? (12) DVT prophylaxis: Eliquis Disposition - Await culture results from 06/29 if negative tomorrow AM it would be 48 hours can get PICC then tomorrow if negative possible d/c tomorrow evening if home IV set up recommend follow up with Dr. Charlton Subjective patient c/o pain at the site of formal port she says that the pain is excruciating, however she was able to sleep last night she is eating well, no fever/chills reviewed with her that the cultures from yesterday morning are negative so far hope to get PICC tomorrow updated her father at the bedside Review of Systems Review of Systems: All systems reviewed & are unremarkable except as noted in HPI & below Integumentary: + wounds (pain at incison site) Physical Exam Constitutional: WD/WN, vitals as above + obese Eyes: PERRL, conjunctivae normal, anicteric sclerae ENMT: external ear and nose normal, oropharynx normal Neck: trachea midline, no thyromegaly Respiratory: normal respiratory effort, lungs clear to auscultation Cardiovascular: RRR, no murmur, no edema Gastrointestinal (Abdomen): normal bowel sounds, soft, nontender, no hepatosp lenomegaly Musculoskeletal: no cyanosis or clubbing, extremities motor strength 5/5 Extremities: + amputation noted (bilateral AKA) Skin: no rashes, warm and dry + incision (clean, well intact, not hot, slightly tender) Neurologic: patellar DTR's 2+ bilat, sensation intact and PERRL, EOMI, accommodation nl, no face palsy, no dysarthria Psychiatric: Orientation: alert and oriented x 3 Affect: + anxious affect Lymphatic: no cervical or axillary lymphadenopathy Results & Data Vital Signs (Past 12 Hours) Vital Signs Temp Pulse Resp BP BP Pulse Ox 06/30/19 15:06 36.7 C 105 H 16 128/80 98 06/30/19 08:00 36.7 C 82 18 127/85 94 Laboratory Results Laboratory Results - last 24 hr 06/29/19 06/29/19 06/30/19 16:43 20:23 07:50 POC Glucose 113 H 139 H 132 H 06/30/19 11:41 POC Glucose 180 H Medications Administered Current Inpatient Medications Acetaminophen (Tylenol) 1,000 mg PO Q6H PRN PRN Reason: Fever Or Pain Stop: 07/20/19 20:25 Last Admin: 06/29/19 05:31 Dose: 1,000 mg Documented by: Hydrocodone Bitart/Acetaminophen (Talmage 5/325) 1 - 2 tab PO Q4H PRN PRN Reason: Pain Stop: 07/04/19 23:41 Last Admin: 06/27/19 08:46 Dose: 2 tab Documented by: Albuterol (Ventolin Hfa) 2 puffs INH Q6 PRN PRN Reason: Shortness Of Breath Or Wheezin Stop: 07/20/19 20:57 Apixaban (Eliquis) 5 mg PO BID [facility] Stop: 07/20/19 20:59 Last Admin: 06/30/19 10:33 Dose: 5 mg Documented by: Benzonatate (Tessalon Perle) 200 mg PO TID PRN PRN Reason: Cough Stop: 07/20/19 20:25 Benztropine Mesylate (Cogentin) 1 mg PO TID PRN PRN Reason: Migraine Headache Stop: 07/20/19 20:25 Benztropine Mesylate (Cogentin) 1 mg IM DAILY PRN PRN Reason: Haldol Reaction Stop: 07/20/19 20:25 Brexpiprazole (Rexulti) 1 ea PO [facility] Stop: 07/22/19 08:59 Last Admin: 06/30/19 10:34 Dose: 1 ea Documented by: Cetirizine HCl (Zyrtec) 10 mg PO BID PRN PRN Reason: Allergies or Antibiotics Stop: 07/20/19 20:25 Cyanocobalamin (Vitamin B-12) [facility] [place] Stop: 07/21/19 08:59 Last Admin: 06/30/19 10:32 Dose: 1,000 mcg Documented by: Dextrose (Dextrose 50%) 25 - 50 ml IV UD PRN; Protocol PRN Reason: Hypoglycemia Protocol Stop: 07/20/19 20:25 Diclofenac Sodium (Voltaren 1% Top) 4 gm EXT QID [facility] Stop: 07/25/19 16:59 Last Admin: 06/30/19 12:46 Dose: Not Given Documented by: Diphenhydramine HCl (Benadryl Capsule) 25 mg PO QID PRN PRN Reason: Allergic Symptoms Stop: 07/20/19 20:25 Last Admin: 06/27/19 10:49 Dose: 25 mg Documented by: Famotidine (Pepcid) 40 mg PO HS [facility] Stop: 07/20/19 20:59 Last Admin: 06/29/19 20:52 Dose: 40 mg Documented by: Fluticasone/Vilanterol (Breo Ellipta 200/25 Mcg Inh) 1 puffs INH [facility] Stop: 07/21/19 08:59 Last Admin: 06/30/19 10:33 Dose: 1 puffs Documented by: Glucagon (Glucagen) 1 mg SQ UD PRN; Protocol PRN Reason: Hypoglycemia Protocol Stop: 07/20/19 20:25 Glucose (Dex4 Glucose) 4 - 8 tabs PO UD PRN; Protocol PRN Reason: Hypoglycemia Protocol Stop: 07/20/19 20:25 Glucose (Glucose 40%) 15 - 30 gm PO UD PRN; Protocol PRN Reason: Hypoglycemia Protocol Stop: 07/20/19 20:25 Haloperidol Lactate (Haldol) 2.5 mg IM BID PRN PRN Reason: acute headaches Stop: 07/20/19 20:25 Heparin Sodium (Porcine) (Heparin Sod 100 Unit/Ml Flush) 5 ml FLUSH PRN PRN PRN Reason: Flush Stop: 07/20/19 22:44 Last Admin: 06/28/19 05:20 Dose: 5 ml Documented by: Hydromorphone HCl (Dilaudid) 0.5 mg IV Q12 PRN PRN Reason: Pain Stop: 07/14/19 13:07 Hydroxyzine HCl (Vistaril) 25 mg PO QID PRN PRN Reason: Anxiety Stop: 07/20/19 20:25 Last Admin: 06/27/19 12:37 Dose: 25 mg Documented by: Hyoscyamine (Levsin) 0.125 mg PO TID [place] Stop: 07/20/19 20:59 Last Admin: 06/30/19 12:52 Dose: 0.125 mg Documented by: Daptomycin 425 mg/ Syringe 8.5 mls @ 4.25 mls/min IV Q24H [facility]; Protocol Stop: 07/04/19 17:59 Last Admin: 06/30/19 12:50 Dose: 4.25 mls/min Documented by: Acetaminophen (Ofirmev) 1,000 mg in 100 mls @ 400 mls/hr IV Q8H PRN PRN Reason: Pain from surgical site Stop: 07/02/19 16:17 Last Admin: 06/30/19 15:50 Dose: 400 mls/hr Documented by: Insulin Aspart (Novolog Flexpen) 0 units SC ACHS [facility] Stop: 07/20/19 20:59 Last Admin: 06/30/19 12:48 Dose: 6 units Documented by: Levalbuterol HCl (Xopenex 0.63 Mg/3 Ml Neb) 0.63 mg INH Q6H PRN PRN Reason: Shortness Of Breath Stop: 07/20/19 20:25 Levothyroxine Sodium (Synthroid) 88 mcg PO DAILYBB [facility] Stop: 07/21/19 06:29 Last Admin: 06/30/19 06:31 Dose: 88 mcg Documented by: Lidocaine (Xylocaine 5% Oint) 1 appln TOP QID PRN PRN Reason: Pain Stop: 07/20/19 20:25 Loratadine (Claritin) 10 mg PO HS [facility] Stop: 07/20/19 20:59 Last Admin: 06/29/19 20:51 Dose: 10 mg Documented by: Magnesium Hydroxide (Milk Of Magnesia) 30 ml PO Q6H PRN PRN Reason: Constipation Stop: 07/20/19 20:25 Metoclopramide HCl (Reglan) 10 mg PO BID PRN PRN Reason: acute headaches Stop: 07/20/19 20:25 Mexiletine HCl (Mexitil) 300 mg PO TIDM [facility] Stop: 07/21/19 07:59 Last Admin: 06/30/19 12:46 Dose: 300 mg Documented by: Miscellaneous (Carbohydrates For Hypoglycemia) 15 - 30 gm PO UD PRN PRN Reason: Hypoglycemia Protocol Stop: 07/20/19 20:25 Nystatin (Mycostatin) 1 appln EXT TID PRN PRN Reason: Skin Irritation Stop: 07/20/19 20:25 Nystatin/Triamcinolone Acetonide (Mycolog Ii) 1 appln EXT TID PRN PRN Reason: AFFECTED SKIN Stop: 07/20/19 20:25 Ondansetron HCl (Zofran Odt) 8 mg PO Q6H PRN PRN Reason: Nausea Stop: 07/20/19 20:25 Last Admin: 06/24/19 20:20 Dose: 8 mg Documented by: Ondansetron HCl (Zofran) 4 mg IV Q6H PRN PRN Reason: Nausea Stop: 07/20/19 20:25 Last Admin: 06/30/19 14:20 Dose: 4 mg Documented by: Pantoprazole Sodium (Protonix) 40 mg PO QAM [facility] Stop: 07/21/19 08:59 Last Admin: 06/30/19 10:32 Dose: 40 mg Documented by: Phenazopyridine HCl (Pyridium) 200 mg PO TID PRN PRN Reason: Dysuria Stop: 07/26/19 10:22 Polyethylene Glycol (Miralax Powder Packet) 17 gm PO TID PRN PRN Reason: Constipation Stop: 07/20/19 20:25 Potassium Chloride (Klor-Con M20) 40 meq PO BID [facility] Stop: 07/22/19 20:59 Last Admin: 06/30/19 10:33 Dose: 40 meq Documented by: Prenat Multivit/Foreman/Iron/Folic Ac ( Vitamin) 1 tab PO DAILY [facility] Stop: 07/24/19 08:59 Last Admin: 06/30/19 10:34 Dose: 1 tab Documented by: Promethazine HCl (Phenergan) 12.5 mg IM Q6H PRN PRN Reason: Nausea Stop: 07/20/19 20:25 Quetiapine Fumarate (Seroquel) 12.5 mg PO 0900,1400 [facility] Stop: 07/21/19 08:59 Last Admin: 06/30/19 12:51 Dose: 12.5 mg Documented by: Quetiapine Fumarate (Seroquel) 100 mg PO [facility] Stop: 07/20/19 20:59 Last Admin: 06/29/19 20:52 Dose: 100 mg Documented by: Topiramate (Qudexy Xr) 1 ea PO BIDM [facility] Stop: 07/21/19 16:59 Last Admin: 06/30/19 10:34 Dose: 1 ea Documented by: Trazodone HCl (Desyrel) 150 mg PO [facility] Stop: 07/20/19 20:59 Last Admin: 06/29/19 20:50 Dose: 150 mg Documented by: Triamcinolone Acetonide (Kenalog 0.1%) 1 appln TOP TID PRN PRN Reason: Itching Stop: 07/20/19 20:25 Venlafaxine HCl (Effexor Extended Release) 37.5 mg PO QAM [facility] Stop: 07/21/19 08:59 Last Admin: 06/30/19 10:31 Dose: 37.5 mg Documented by: Venlafaxine HCl (Effexor Extended Release) 150 mg PO QAM [facility] Stop: 07/21/19 08:59 Last Admin: 06/30/19 10:30 Dose: 150 mg Documented by: PG Care Time/CCT Total # of Minutes Spent Total Time Spent with Patient: Total time spent is greater than 50% in coordinat ion of care (as documented) at patient's floor/unit and/or counseling patient: Coding Level of Care Code 03773 Subseq Hosp Care Lvl 2 Diagnoses Septicemia A41.9 MRSA bacteremia R78.81 Recurrent UTI N39.0 Sacral decubitus ulcer L89.159 History of pulmonary embolism Z86.711 Hypothyroidism E03.9 Hypothyroidism type: unspecified Nocturnal hypoxemia G47.34 Prediabetes R73.03 Bipolar 1 disorder F31.9 Asthma J45.40 Asthma severity: moderate Asthma persistence: persistent Asthma complication type: uncomplicated Chest pain R07.9 DVT prophylaxis Z29.9 (1) Hypothyroidism Hypothyroidism type: unspecified Qualified Code(s): E03.9 - Hypothyroidism, unspecified (2) Asthma Asthma severity: moderate Asthma persistence: persistent Asthma complication type: uncomplicated Qualified Code(s): J45.40 - Moderate persistent asthma, uncomplicated
[2019-06-30] MEDS: HYDROCODONE/ACETAMOPHEN 5/325MG TAB PO PRN (17:08)
[2019-06-30] MEDS: LORATADINE 10 MG TAB PO SCH (21:13)
[2019-06-30] MEDS: TRAZODONE HCL 50 MG TAB PO SCH (21:14)
[2019-06-30] MEDS: FAMOTIDINE 40 MG TABLET PO SCH (21:16)
[2019-06-30] MEDS: QUETIAPINE FUMARATE 100 MG TABLET PO SCH (21:18)
[2019-07-01] MEDS: LEVOTHYROXINE SODIUM 88 MCG TABLET PO SCH (06:17)
[2019-07-01] MEDS: DICLOFENAC SOD 1% GEL 100 GM TUBE EXT SCH ×3 (09:27→12:31)
[2019-07-01] MEDS: CYANOCOBALAMIN 500 MCG TABLET (VITAMIN B-12) PO SCH (09:28)
[2019-07-01] MEDS: QUETIAPINE FUMARATE 25 MG TABLET PO SCH ×2 (09:28→13:31)
[2019-07-01] MEDS: BREXPIPRAZOLE 4 MG PO SCH (09:29)
[2019-07-01] MEDS: PRENATAL VITAMIN 1 TAB PO SCH (09:29)
[2019-07-01] MEDS: PANTOprazole 40 MG TAB PO SCH (09:29)
[2019-07-01] MEDS: TOPIRAMATE 200 MG PO SCH (09:30)
[2019-07-01] MEDS: APIXABAN 5 MG TABLET PO SCH (09:30)
[2019-07-01] MEDS: FLUTICASONE/VILANTEROL 200/25MCG 14 PUFFS/INHALER INH SCH (09:30)
[2019-07-01] MEDS: POTASSIUM CHLORIDE 20 MEQ TABCR PO SCH (09:31)
[2019-07-01] MEDS: HYOSCYAMINE SULFATE 0.125 MG TAB PO SCH ×2 (09:31→13:32)
[2019-07-01] MEDS: VENLAFAXINE HCL XR 37.5 MG CAPXR PO SCH (09:31)
[2019-07-01] MEDS: VENLAFAXINE HCL XR 150 MG CAPXR PO SCH (09:31)
[2019-07-01] MEDS: INSULIN ASPART 100 UNITS/ML 3 ML PEN SC SCH ×2 (09:39→12:33)
[2019-07-01] MEDS: MEXILETINE HCL 150 MG CAPSULE PO SCH ×2 (09:46→12:32)
[2019-07-01] MEDS: DAPTOmycin 425 MG in SYRINGE 0 ML IV SCH (13:51)
--- NOTE | 2019-07-01 14:47 | Discharge Summary ---
Date of Service July 01, 2019 Admission HPI Per Admitting Provider Connie Chairez is a 34-year-old female admitted medically on 06/20/2019 after presenting to the ED with complaints of a fever. Patient is being treated for septicemia, likely resulting from recurrent UTIs. Patient has a psychiatric history of schizoaffective disorder, bipolar type. She has been seen numerous times on psychiatric consult service, and was last admitted to our unit in 06/2017 after verbalizing suicidal ideation. Patient has a history of frequent medical admissions during which she is regularly requesting psychiatric involvement, but ultimately reports feelings of loneliness and isolation. Patient does well when she has visitors present in the room; however, admits to increased anxiety and occasionally suicidal ideation when she is left alone. Psychiatric consultation was requested during this hospitalization to evaluate patient for anxiety and suicidal ideation. Patient does verbalize to this provider that she is no longer having suicidal thoughts, but is grateful for a chance to speak with this provider today. Patient makes several statements indicating that she is future oriented, most specifically stating that she has a new goal "to outlive Shanice Chun, so there's no way I could right now." Patient does admit to intermittent suicidal ideation; however, states it is "so, so easy to say 'no, go away' to the thoughts." Patient does admit to history of self-harm by cutting, and states that she does periodically continue to have urges to self-harm but ensures that she does not have access to means. Patient does spend a significant amount of time verbalizing various coping strategies she finds effective. She is reportedly proud of the progress she has been making psychiatrically. She informs this provider it has been over 2 years since she has had a psychiatric hospitalization, "I am safe, and I am not going to meet that." This provider praised the patient for her psychiatric stability; however, did address concerns that patient often requires suicide precautions and one-to-one sitters during her medical hospitalizations, due to her reports of suicidal ideation. Patient does admit to understanding as to why these interventions lead to question of her psychiatric stability. She does verbalize that she is agreeable with working on a behavioral plan that may assist her in the medical staff with more effectively managing her psychiatric needs during her hospitalizations. At this time, patient is able to contract for safety, stating she would inform staff if there was "even the tiniest inkling of self-harm thoughts." She denies other needs or concerns at this time. 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), no cyanosis and no clubbing Skin + wound (rt anterior chest wall port site c/d/i) Neurologic moves all extremities and awake; no focal motor deficits Psychiatric Orientation: alert, oriented to person, oriented to place, oriented to time and cooperative Affect: euthymic affect Genitourinary Meade catheter in suprapubic region, clear yellow urine Lymphatic no lymphedema Discharge Data Allergies Allergy/AdvReac Type Severity Reaction Status Date / Time chlorhexidine Allergy Severe Rash Verified 06/20/19 16:55 adhesive Allergy Intermediate TAPE- HIVES Verified 06/20/19 16:55 ceftriaxone Allergy Intermediate rash, Has Verified 06/20/19 16:55 tolerated cefepime and Zerbaxa Cipro Allergy Intermediate hives Verified 01/11/18 17:31 ciprofloxacin Allergy Intermediate hives Verified 06/20/19 16:55 clindamycin Allergy Intermediate Redness/Itc Verified 06/20/19 16:55 hiness imipenem Allergy Intermediate PT REPORTS Verified 06/20/19 16:55 ITCHING levofloxacin Allergy Intermediate rash,HEARD Verified 06/20/19 16:55 VOICES linezolid Allergy Intermediate rash Verified 06/20/19 16:55 nitrofurantoin Allergy Intermediate rash and Verified 06/20/19 16:55 hives trimethoprim Allergy Intermediate Hives Verified 06/20/19 16:55 vancomycin Allergy Intermediate rash Verified 06/20/19 16:55 amikacin Allergy Unknown PER DR Verified 06/20/19 16:55 ROBINS,RXN WAS TO ZOSYN NOT AMKrash;hives Bactrim Allergy Unknown Hives Verified 01/11/18 17:31 sulfamethoxazole Allergy Unknown Hives Verified 06/20/19 16:55 buspirone AdvReac Severe HALLUCINATI Verified 06/20/19 16:55 ONS piperacillin AdvReac Intermediate SEVERE Verified 06/20/19 16:55 RASH, HIVES tazobactam AdvReac Intermediate SEVERE Verified 06/20/19 16:55 RASH, HIVES tobramycin AdvReac Unknown Unknown Verified 06/20/19 16:55 latex AdvReac Unknown Verified 06/20/19 16:55 Consultations 06/20/19 18:14 ED Decision to Admit Stat 06/20/19 20:26 Consult Case Management - Discharge Planning Routine Consult Infectious Diseases Routine 06/28/19 10:12 Consult General Surgery Routine 06/28/19 19:07 Consult Psychiatry Routine Procedures Performed Operation Date: 06/28/19 18:10 Actual Procedures p Port Removal(Not Applicable) - Song Bain, , TIAGO PICC Line Placement Ordered Studies 06/28/19 09:52 CT head/brain wo con Routine Skull xray CXR C-spine xray Abdomen xray ECHO Hospital Course (1) Septicemia: - Presents with fevers, tachycardia, UTI - now with confirmed MRSA Elio teremia; Afebrile since 06/20 - Multiple BCx with consistent bacteremia blood cultures 06/23 positive for MRSA blood cultures 06/26 positive for gram positive cocci, likely MRSA culture from port positive for MRSA on 06/28 blood cultures repeated on 06/29 to document clearance-remain no growth > 48 hrs - Continue Daptomycin - limitations due to resistance and allergies - will need weekly CBC, CMP, ESR, CPK Dr. Robins recommending 6 week course - Echo - difficult study due to body habitus - no vegetation seen but cannot be completely R/Od repeat cultures were all positive from port, negative from peripheral draw port removed on 06/[address] Bain -had PICC line placed prior to discharge for the 6 week duration of treatment- could leave PICC in until new port placed Follow up with [facility] and [facility]ound Care center after discharge, Home Health (2) MRSA bacteremia: - As above plan for 6 weeks of therapy from negative cultures--Last date would be Aug 10, 2019 repeat cultures on 06/29 remain NGTD (3) Recurrent UTI: - Suprapubic catheter associated UTI - causing MRSA Bacteremia - Catheter exchanged in ER by mom on day of admit - Continue Renacidin bladder wash HS and Meade catheter flushes every morning - UCx with MRSA and Enterococcus faecalis -- Biogram suggests approx. 75% cross-coverage with Dapto - however all other sensitivities are patient allergies - Treatment as above (4) Sacral decubitus ulcer: - WCC following - apreciate assistance - continue to offload pressure and dressing as recommended - On low flow mattress (5) History of pulmonary embolism: - Continue Eliquis (6) Hypothyroidism: - TSH 2.1 - Continue Levothyroxine 88 mcg daily (7) Nocturnal hypoxemia: - Continue chronic O2 HS - can add humidification as she reports a nose bleed/dry nose/mouth (8) Prediabetes: - A1c 6.1 - Hyperglycemia initially but improved - this was likely due to infection -- She states she does have higher BSGs at home and isn't eating well here due to limited options - can give a regular diet - Was on Metformin but this was stopped due to GI issues; she would like to continue insulin at home however did discuss risk of hypoglycemia as her A1c would not warrant such an aggressive approach at this current time - Did discuss at least checking her glucose as she reports dizziness at home and she feels this is related to elevated sugars - photocopying equipment mechanic consult - appreciate discussion as mother is also interested in just better understanding of this condition Gave Rx for accu-chek guide glucose meter, test strips for once daily check, fastclix lancets (drums) (9) Bipolar 1 disorder: - Bipolar I/Schizoaffective Disorder/Anxiety/PTSD/Insomnia - Continue Benztropine 1 mg TID, Haloperidol 2.5 mg IM BID PRN, Hydroxyzine 25 mg QID PRN, Mexiletine 300 mg TID, Seroquel 100 mg HS, Topamax BID, Trazodone 150 mg HS, and Venlafaxine 187.5 mg daily (10) Asthma: - No exacerbation at this time - Albuterol PRN; Fluticasone/Vilanterol daily (11) Chest pain: - Recurrent, intermittent, usually self-limiting L sided CP - CTA - normal; echocardiogram without wall motion abnormalities; EKG normal and was repeated today - Not relieved with GI cocktail - Does report sometimes resolves with Tylenol - so likely this is a MS pain - costochondritis? (12) DVT prophylaxis: Eliquis Disposition - stable for dc to home Total Time Total Time Spent Total Time Spent (In Minutes): 35 min Total Time Includes: Examination of the Patient, Discharge Planning and Medication Reconciliation Discharge Plan Discharge Items Patient Disposition: Home - Home Health Services Reason For Visit: FEVER Discharge Diagnosis: MRSA septicemia, UTI, Port infection Condition on Discharge: Good Activity: Resume your previous activity Non-emergency contact: Primary Care Provider and Specialist Call non-emergency contact if: you have any medication questions, your symptoms worsen, your temperature is above 101, your wound has increased redness, your wound has increased drainage and your wound pain has increased Follow-up/Referrals: [facility] [place] Wound Care [Provider Group] - 07/05/19 1:30 pm (Please, follow up at [facility] on MondayJuly 05 at 1:30 pm. *If you need to change this appointment, call the clinic at [phone]. THE DRUG AND ALCOHOL TREATMENT SPECIALIST AT THE WOUND CLINIC WILL ARRANGE FOR YOU TO SEE DR. ROBINS, THE INFECTIOUS DISEASE SPECIALIST, DURING ONE OF YOUR UPCOMING WOUND CLINIC APPOINTMENTS.) Connie Robins DO [Physician] - (Please follow up within 2-3 weeks. This will be coordinated to occur while you are at the wound clinic.) Gela Boone MD [Primary Care Provider] - 07/12/19 2:00 pm (Please, follow up with Dr. Boone on MondayJuly 12 at 2:00 pm. *If you need to change this appointment, call the office at [phone].) Song Bain DO, FACS [Physician] - (Please follow up within 1 week.) Diet: Carb Consistent or DM2 Addtl Attending Provider Instructions: Continue on Daptomycin once daily through 08/10/19. You should have weekly labs drawn and results to be sent to your PCP. Please check your blood glucose 4x/day and keep a record for your PCP. Pending Studies at Discharge: Yes Studies:: Final Blood culture results from 06/29/19 Stand-Alone Forms: My [facility] [employer] Medications and DC Order Prescriptions: New diclofenac sodium [Voltaren] 1 % Gel 4 g EXT QID Qty: 100 RF: 0 potassium chloride [Klor-Con M20] 20 mEq Tablet,Er Particles/Crystals 40 meq PO BID Qty: 60 RF: 0 daptomycin 500 mg recon soln 450 mg IV DAILY 39 Days Qty: 39 RF: 0 (DME) blood-glucose meter [Accu-Chek Guide Glucose Meter] Misc See Rx Instructions .ROUTE .MEDSUPPLY Qty: 1 RF: 0 (DME) lancets [Accu-Chek Fastclix Lancet Drum] Misc See Rx Instructions .ROUTE .MEDSUPPLY Qty: 100 RF: 0 (DME) Accu-Chek Guide Strip See Rx Instructions .ROUTE .MEDSUPPLY Qty: 100 RF: 0 Continued quetiapine [Seroquel] 100 mg tablet 100 mg PO HS RF: 0 Eliquis 5 mg tablet 5 mg PO BID Qty: 180 RF: 3 fluticasone propion-salmeterol [Advair Diskus] 500-50 mcg/dose blister with device 1 inh INHALATION BID Qty: 60 RF: 5 levalbuterol HCl [Xopenex] 0.63 mg/3 mL solution for nebulization 0.63 mg INHALATION Q6H PRN (Reason: Shortness Of Breath) Qty: 36 RF: 1 Hydrofera Blue 4 X 4 " bandage 1 ea TOP UD RF: 0 triamcinolone acetonide [Triderm] 0.1 % cream 1 appln topical TID PRN (Reason: Itching) RF: 0 nystatin-triamcinolone 100,000-0.1 unit/gram-% ointment 1 appln topical TID PRN (Reason: AFFECTED SKIN) Qty: 1 RF: 0 venlafaxine [Effexor XR] 150 mg capsule,extended release 24hr 150 mg PO QAM RF: 0 mexiletine 150 mg capsule 300 mg PO TIDM RF: 0 trazodone 150 mg tablet 150 mg PO HS RF: 0 metoclopramide HCl [Reglan] 10 mg tablet 10 mg PO BID MDD 2x/wk PRN (Reason: acute headaches) RF: 0 Multi 27-800 mg-mcg Tablet 1 tab PO QDL RF: 0 Botox 100 unit Recon Soln 1 dose IM DIRECTED RF: 0 albuterol sulfate [ProAir HFA] 90 mcg/actuation HFA aerosol inhaler 2 puffs INH Q6 PRN (Reason: Shortness Of Breath Or Wheezing) RF: 0 nystatin [Nyamyc] 100,000 unit/gram Powder 1 applic TOPICAL TID PRN (Reason: Skin Irritation) RF: 0 polyethylene glycol 3350 [Miralax] 17 gram/dose Powder 17 g PO TID PRN (Reason: Constipation) RF: 0 venlafaxine [Effexor XR] 37.5 mg capsule,extended release 24hr 37.5 mg PO QAM RF: 0 levothyroxine [Synthroid] 88 mcg tablet 88 mcg PO DAILYBB RF: 0 cyanocobalamin (vitamin B-12) [Vitamin B-12] 1,000 mcg Tablet 1,000 mcg PO QAM RF: 0 dihydroergotamine [D.H.E.45] 1 mg/mL Solution 0 mg IM DIRECTED RF: 0 benztropine 1 mg Tablet 1 mg PO TID PRN (Reason: Migraine Headache) RF: 0 hyoscyamine sulfate [Levsin] 0.125 mg tablet 0.125 mg PO TID RF: 0 diphenhydramine HCl [Benadryl] 25 mg Capsule 25 mg PO QID PRN (Reason: Allergic Symptoms) RF: 0 Rexulti 2 mg tablet 4 mg PO QAM RF: 0 hydroxyzine HCl 25 mg tablet 25 mg PO QID PRN (Reason: Anxiety) RF: 0 ondansetron 8 mg tablet,disintegrating 8 mg PO Q6H PRN (Reason: Nausea) RF: 0 famotidine [Pepcid] 40 mg Tablet 40 mg PO HS RF: 0 pantoprazole [Protonix] 40 mg tablet,delayed release (DR/EC) 40 mg PO QAM RF: 0 cetirizine [Zyrtec] 10 mg tablet 10 mg PO BID PRN (Reason: Allergies or Antibiotics) RF: 0 promethazine [Phenergan] 25 mg/mL Solution 12.5 mg IM Q6H PRN (Reason: Nausea) RF: 0 benztropine [Cogentin] 2 mg/2 mL Solution 1 mg IM DAILY PRN (Reason: Haldol Reaction) RF: 0 haloperidol lactate [Haldol] 5 mg/mL Solution 2.5 mg IM BID MDD 2x/wk PRN (Reason: acute headaches) RF: 0 loratadine [Claritin] 10 mg Tablet 10 mg PO HS RF: 0 Renacidin 1,980.6 mg-59.4 mg-980.4mg/30mL solution 0 ml UD RF: 0 quetiapine [Seroquel] 25 mg tablet 12.5 mg PO AMPM RF: 0 acetaminophen [Tylenol Extra Strength] 500 mg Tablet 1,000 mg PO Q6H PRN (Reason: Fever Or Pain) RF: 0 benzonatate 200 mg capsule 200 mg PO TID PRN (Reason: Cough) RF: 0 hydrocodone-acetaminophen [[place]] 5-325 mg tablet 1 - 2 tab PO Q4H MDD 8 tabs PRN (Reason: Pain) RF: 0 lidocaine 5 % ointment 1 appln TOP QID PRN (Reason: Pain) RF: 0 topiramate [Qudexy XR] 200 mg capsule,sprinkle,ER 24hr 200 mg PO BID RF: 0 Discharge Orders: Discharge Order (Routine); Ordered 07/01/19 Ordered By: Cheryle Layton/Other Patient Handouts: Hyperglycemia, Diabetes Resources, Diabetes Healthy Meals, Diabetes Carbs, Diabetes Exercise Benefits, A1C Admission Data Admit Date/Time: 06/21/19 10:40 Attending Provider: Cheryle Masterson Admit Provider: Mamta Tracy Primary Care Provider: Gela Boone Other Providers: Mamta Tracy ; Connie Robins ; Song Bain ; Daysi Valderrama Coding Level of Care Code D/C Day Management >30 mins Diagnoses Septicemia A41.9 MRSA bacteremia R78.81 Recurrent UTI N39.0 Sacral decubitus ulcer L89.159 History of pulmonary embolism Z86.711 Hypothyroidism E03.9 Hypothyroidism type: unspecified Nocturnal hypoxemia G47.34 Prediabetes R73.03 Bipolar 1 disorder F31.9 Asthma J45.40 Asthma complication type: uncomplicated Asthma persistence: persistent Asthma severity: moderate Chest pain R07.9 DVT prophylaxis Z29.9
== END 2019-07-01 18:09 | disposition home health service (06) | DRG 314 ==
LOC: 4W 14:19 → ED 14:19 → SUATTDRO 19:35 → 4W 20:08 → SUATTDRO 06-21 10:40

== ENCOUNTER 2019-11-26 15:26 | Observation (INO) ==
[2019-11-26] MEDS ORDERED: DAPTOmycin 200 MG in SYRINGE 0 ML IV ONE (18:43)
[2019-11-26] MEDS ORDERED: DAPTOMYCIN CONSULT ACTIVE PRN ×2 (18:43→22:50)
[2019-11-26 20:05] LABS: Basophils # (auto) 0.03 K/uL (0-0.2); Basophils % (auto) 0.3 %; Eosinophils # (auto) 0.21 K/uL (0-0.5); Eosinophils % (auto) 2.3 %; Hematocrit (blood only) 40.5 % (37-47); Hemoglobin 12.2 g/dL (12.0-16.0); Immature Granulocytes # (auto) 0.03 K/uL (0.00-0.02); Immature Granulocytes % (auto) 0.3 %; Lymphocytes # (auto) 2.48 K/uL (1.2-3.4); Lymphocytes % (auto) 27.2 %; Mean Corpuscular Hemoglobin 26.2 pg (25-34); Mean Corpuscular Hgb Conc 30.1 g/dL (32-36); Mean Corpuscular Volume 86.9 fL (80-100); Mean Platelet Volume 10.4 fL (7.4-10.4); Monocytes # (auto) 0.83 K/uL (0.11-0.59); Monocytes % (auto) 9.1 %; Neutrophils # (auto) 5.55 K/uL (1.4-6.5); Neutrophils % (auto) 60.8 %; Platelet Count 263 K/uL (130-400); RDW Coefficient of Variation 20.9 % (11.5-14.5); RDW Standard Deviation 66.2 fL (36.4-46.3); Red Blood Count 4.66 M/uL (4.2-5.4); White Blood Count 9.13 K/uL (4.8-10.8)
[2019-11-26 20:21] LABS: Alanine Aminotransferase 24 U/L (12-78); Albumin Level 3.2 gm/dl (3.4-5.0); Aspartate Aminotransferase 7 U/L (15-37); BUN Creatinine Ratio 27.6 (10-20); Blood Urea Nitrogen 18 mg/dl (7-18); Calcium 9.2 mg/dl (8.5-10.1); Carbon Dioxide 26 mmol/L (21-32); Chloride 107 mmol/L (98-107); Est GFR (African American) 136.8; Est GFR (Non-African American) 118.1; Glucose 130 mg/dl (70-99); Potassium 3.6 mmol/L (3.5-5.1); Sodium 140 mmol/L (136-145)
[2019-11-26 20:24] LABS: Albumin Globulin Ratio 0.7 (0.9-2); Alkaline Phosphatase 102 U/L (45-117); Bilirubin,Total 0.2 mg/dl (0.2-1); Globulin 4.6 gm/dl (2.5-4.0); Total Protein 7.8 gm/dl (6.4-8.2)
[2019-11-26 20:25] LABS: Anisocytosis Present
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
[2019-11-26] MEDS ORDERED: ALUMINUM/MAGNESIUM SUSP 30 ML UDC PO PRN (22:30)
[2019-11-26] MEDS ORDERED: GENTAMICIN CONSULT ACTIVE PRN (22:30)
[2019-11-26] MEDS ORDERED: ACETAMINOPHEN 325 MG TAB PO PRN (22:30)
[2019-11-26] MEDS ORDERED: POLYETHYLENE (MIRALAX) 17 GM PACK PO PRN (22:30)
[2019-11-26] MEDS ORDERED: MAGNESIUM HYDROXIDE SUSP 30 ML UDC PO PRN (22:30)
[2019-11-26] MEDS ORDERED: haloperidoL 1 MG TAB PO PRN (22:30)
[2019-11-26] MEDS ORDERED: LEVALBUTEROL HCL 0.63 MG/3 ML NEB INH PRN (22:30)
[2019-11-26] MEDS ORDERED: ONDANSETRON INJ 2 MG/ML 2 ML VIAL IV PRN (22:30)
[2019-11-26] MEDS ORDERED: ALBUTEROL HFA 8 GM INHALER INH PRN (22:39)
[2019-11-26] MEDS ORDERED: PHARMACY GLYCEMIC MGMT CONSULT PRN (22:46)
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
[2019-11-27] MEDS ORDERED: PATIENT'S HEIGHT AND/OR WEIGHT NEEDED SCH (00:45)
[2019-11-27] MEDS: PATIENT'S HEIGHT AND/OR WEIGHT NEEDED SCH ×2 (00:45→00:56)
[2019-11-27] MEDS ORDERED: GENTAMICIN SULFATE 360 MG in DEXTROSE 5% 100 ML IV ONE (01:15)
[2019-11-27] MEDS ORDERED: GLUCOSE 10 TABS/TUBE PO PRN (02:30)
[2019-11-27] MEDS ORDERED: GLUCAGON FOR INJ 1 MG VIAL SQ PRN (02:30)
[2019-11-27] MEDS ORDERED: DEXTROSE 50% 50 ML SYRINGE IV PRN (02:30)
[2019-11-27] MEDS ORDERED: CARBOHYDRATES FOR HYPOGLYCEMIA PO PRN (02:30)
[2019-11-27] MEDS ORDERED: GLUCOSE 40% GEL 15 GM TUBE PO PRN (02:30)
[2019-11-27] MEDS: HEPARIN 100 UNIT/ML 5ML FLUSH FLUSH PRN ×3 (03:14→11:42)
[2019-11-27] MEDS: QUETIAPINE FUMARATE 25 MG TABLET PO SCH ×2 (05:57→14:43)
[2019-11-27 06:21] LABS: Basophils # (auto) 0.03 K/uL (0-0.2); Basophils % (auto) 0.4 %; Eosinophils # (auto) 0.37 K/uL (0-0.5); Eosinophils % (auto) 4.6 %; Hematocrit (blood only) 38.1 % (37-47); Hemoglobin 11.3 g/dL (12.0-16.0); Immature Granulocytes # (auto) 0.01 K/uL (0.00-0.02); Immature Granulocytes % (auto) 0.1 %; Lymphocytes % (auto) 31.1 %; Mean Corpuscular Hgb Conc 29.7 g/dL (32-36); Mean Corpuscular Volume 87.8 fL (80-100); Mean Platelet Volume 10.1 fL (7.4-10.4); Neutrophils # (auto) 4.32 K/uL (1.4-6.5); Neutrophils % (auto) 53.8 %; Platelet Count 250 K/uL (130-400); RDW Coefficient of Variation 20.9 % (11.5-14.5); RDW Standard Deviation 67.7 fL (36.4-46.3); Red Blood Count 4.34 M/uL (4.2-5.4); White Blood Count 8.03 K/uL (4.8-10.8)
[2019-11-27] MEDS ORDERED: LEVOTHYROXINE SODIUM 100 MCG TABLET PO SCH (06:30)
[2019-11-27 06:51] LABS: BUN Creatinine Ratio 29.4 (10-20); Calcium 8.2 mg/dl (8.5-10.1); Creatinine Clr Calc Pharmacy 104.6 ml/min; Est GFR (African American) 136.8; Est GFR (Non-African American) 118.1; Potassium 3.5 mmol/L (3.5-5.1)
[2019-11-27 06:59] LABS: RBC Morphology Unremarkable
[2019-11-27] MEDS: INSULIN ASPART 100 UNITS/ML 3 ML PEN SC SCH ×2 (08:32→12:25)
[2019-11-27] MEDS ORDERED: APIXABAN 5 MG TABLET PO SCH (09:00)
[2019-11-27] MEDS ORDERED: POTASSIUM CHLORIDE 20 MEQ TABCR PO SCH (09:00)
[2019-11-27] MEDS ORDERED: VENLAFAXINE HCL XR 75 MG CAPXR PO SCH (09:00)
[2019-11-27] MEDS ORDERED: FLUTICASONE/VILANTEROL 100/25MCG 14 PUFFS/INHALER INH SCH (09:00)
[2019-11-27] MEDS ORDERED: FERROUS SULFATE 325 MG TAB PO SCH (09:00)
[2019-11-27] MEDS ORDERED: INSULIN GLARGINE SOLOSTAR 100 UNITS/ML 3 ML PEN SC SCH (09:00)
[2019-11-27] MEDS ORDERED: POLYETHYLENE (MIRALAX) 17 GM PACK PO SCH (09:00)
[2019-11-27] MEDS ORDERED: VENLAFAXINE HCL XR 150 MG CAPXR PO SCH (09:00)
[2019-11-27] MEDS ORDERED: PANTOprazole 40 MG TAB PO SCH (09:00)
--- NOTE | 2019-11-27 10:23 | Pharmacy Report ---
Pharmacy Abx Initial Consult - Date of Service November 27, 2019 - Pharmacy Dosing Scope Date of Consult: 11/26/2019 Consultation requested by: Dr. Bull Pharmacy is consulted to initiate Daptomycin IV dosing therapy, order appropriate labs and adjust drug dose/frequency. - Subjective The patient is a 34 year old F admitted on 11/26/19 21:46. - Objective Height: 4 ft Weight: 104.4 kg Vital Signs (Past 12hrs): Vital Signs Temp Pulse Pulse Resp BP Pulse Ox 11/27/19 07:58 85 11/27/19 07:14 36.5 C 81 18 111/69 92 11/27/19 03:48 36.4 C L 79 20 114/69 96 11/27/19 01:25 78 11/26/19 22:32 36.7 C 82 18 138/70 95 Lab Results (24hrs): Laboratory Tests (24 Hours) 11/27/19 11/27/19 11/26/19 05:49 05:49 19:45 WBC 8.03 Neut # (Auto) 4.32 Creatinine 0.64 0.64 Est Cr Clr Drug Dosing 104.6 Not Reportable 11/26/19 19:45 WBC 9.13 Neut # (Auto) 5.55 Creatinine Est Cr Clr Drug Dosing Micro Results: 11/26/19 23:54 Aerobic Blood Culture - Pending Blood Anaerobic Blood Culture - Pending 11/26/19 23:51 Aerobic Blood Culture - Pending Blood Anaerobic Blood Culture - Pending Microbiology 11/22/19 Unknown Buttock,Right Gram Stain - Final 11/22/19 Unknown Buttock,Right Wound Culture - Final Pseudomonas aeruginosa Staph aureus MRSA Gamma strep not enterococcus - Risk Factors for Resistance * History of infection with a multidrug-resistant organism: * Recurrent UTIs and SSTIs that have grown MDROs such as Pseudomonas aeruginosa and MRSA * Antimicrobial use within the last 90 days: * Cephalexin, Cefdinir, Doxycycline - Assessment & Plan Assessment 34 year old F admitted secondary to worsening pain and positive wound culture from 11/21 * PMHx is significant for recurrent UTIs/SSTIs, T2DM, b/l BKA, Spina bifida, 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 Wound culture from 11/21 is growing P. aeruginosa, MRSA, and gamma strep not enterococcus * Patient started on Ceftazidime (for which the pseudomonas is sensitive to), Daptomycin (for which the MRSA is sensitive to), and Gentamicin for synergy and double pseudomonal coverage. Gentamicin was then discontinued in favor of Daptomycin and Ceftazidime which is appropriate, * Renal fxn is at baseline, No leukocytosis, afebrile * Pharmacy is consulted to dose Daptomycin Plan IV Daptomycin for treatment of Wound Infection Daptomycin * Target dose: 4 mg/kg for SSTIs * Will be based on Adjusted BW given patient's BMI > 35 * Will be dosed every 24 hours for patient's eCrCl > 100 mL/min * Daptomycin 275 mg IV every 24 hours * Will order CPK levels per protocol Ceftazidime - Pharmacy not consulted * 2 g IV every 8 hours * Appropriate per indication and renal fxn Pharmacy will continue to follow and will adjust dose/frequency as necessary. Thank you.
[2019-11-27] MEDS ORDERED: LACTOBACILLUS ACIDOPHILUS (FLORANEX) TAB PO SCH (11:30)
--- NOTE | 2019-11-27 12:22 | Pharmacy Report ---
Glycemic Control Consultation - Date of Service November 27, 2019 - Scope Scope: Glycemic Pharmacist consulted for glycemic control and to write orders per [facility] inpatient glycemic control protocol. - Objective Weight: 104.4 kg Accuchecks BSG (last 24hrs): Laboratory Data (last 24hrs): 11/26/19 11/27/19 19:45 05:49 Potassium 3.6 3.5 Carbon Dioxide 26 28 Anion Gap 6.0 6.0 Creatinine 0.64 0.64 Est Cr Clr Drug Dosing Not Reportable 104.6 - Recent Pertinent Medications Outpatient Anti-diabetic Regimen: * Lantus 20 units SQ QAM, Ozempic 0.25 mg SQ weekly (pt states she hasn't started this yet) * A1c = 6.4% from 10/03/2019 Risk Factors for Insulin Resistance: * Infection: * Wound infxn on Ceftazidime and Daptomycin * Diet: * T2DM - Assessment & Plan Assessment & Plan: ASSESSMENT: * 34 yo F admitted secondary to facial pain/swelling and for positive wound cultures * PMHx significant for T2DM, Spina Bifida, b/l BKA, 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 ADA & AACE recommend a goal blood sugar range 140-180 mg/dl for the majority of critically ill & non-critically ill patients. However, more stringent targets may be selected in individual cases. Will utilize more stringent goal of 110-140mg/dl based on patient age & comorbidities. Additionally, tighter glycemic control is warranted to facilitate wound/infection healing. * Previous admission data will be utilized to help determine regimen for this admission * A1c demonstrates excellent outpatient control * BSGs have been excellent since admission: 139 --> 121 --> 139 mg/dL PLAN FOR INPATIENT GLYCEMIC CONTROL: * Basal insulin * Lantus 10 units SQ QAM * Bolus insulin * NovoLog per scale ACHS or Q6hrs while NPO * Goal Range: Low 110 mg/dL - High 140 mg/dL * Correction Factor: 25 mg/dL/unit * Nutritional / Prandial insulin per carb ratio of 1 unit per 8 grams CHO consumed * Please note that the plan above was derived based on current level of insulin resistance and hospital stress. These recommendations are appropriate for inpatient admission only. Plan of care upon discharge will need to be reassessed to avoid potential outpatient hypo/hyperglycemia. Thank you.
--- NOTE | 2019-11-27 15:35 | Discharge Summary ---
Date of Service November 27, 2019 Admission HPI Per Admitting Provider Connie Chairez is a 34 yo F w/ complex pMHx. of obesity, DM II, sleep apnea, spina bifida, hydrocephalus, stage II pressure ulcer, MRSA carrier, hyperprolactinemia, neurogenic bladder, chronic suprapubic catheter, GERD, bi lateral BKA, H/O PE on Eliquis who is presenting today with worsening pain and positive blood cultures from wound clinic on 11/21. She has been seen in the past by infectious disease after, "debridement on 10/02 w/ wound cultures (right ischeal ulcer) that at the time grew few pseudomonas and few MRSA, both heavily resistant and many strep (no final ID done)." Dr. Nair was called by the patient on 11/22 for facial swelling and redness w/ eye pain s/p 24 hour ICP monitor and concerns from right sided ulcer. He instructed her to come to the ER to get evaluated, she was seen on that day. The swelling of the face was not thought to be cellulitis and she was sent home on Benadryl and a dose pack of Methylprednisone. Currently she was sent in with positive blood cultures from her right ischium pressure ulcer. She has had the wound for a couple months but the pain has increased over the last few days. The pain is 8/10 and constant. ED course included starting Daptomycin and Ceftazidime. mother Nata: [phone] Principal Diagnosis Abnormal lab Discharge Exam Constitutional + morbidly obese; no acute distress Eyes PERRL, conjunctivae normal, anicteric sclerae ENMT external ear and nose normal, oropharynx normal Neck normal visual inspection Respiratory normal respiratory effort, lungs clear to auscultation Cardiovascular Rate/Rhythm: regular rate and regular rhythm Heart Sounds: no gallop, no murmur and no cardiac rub Gastrointestinal (Abdomen) normal bowel sounds, soft, nontender, no hepatosplenomegaly Skin no rash, drainage, or erythema noted over sacrum or ischium Discharge Data Allergies Allergy/AdvReac Type Severity Reaction Status Date / Time chlorhexidine Allergy Severe blisters Verified 11/26/19 21:50 adhesive Allergy Intermediate TAPE- HIVES Verified 11/26/19 21:50 ceftriaxone Allergy Intermediate rash, Has Verified 11/26/19 21:50 tolerated cefepime and Zerbaxa ciprofloxacin Allergy Intermediate hives Verified 11/26/19 21:50 clindamycin Allergy Intermediate Redness/Itc Verified 11/26/19 21:50 hiness imipenem Allergy Intermediate PT REPORTS Verified 11/26/19 21:50 ITCHING levofloxacin Allergy Intermediate rash,HEARD Verified 11/26/19 21:50 VOICES linezolid Allergy Intermediate rash Verified 11/26/19 21:50 nitrofurantoin Allergy Intermediate rash and Verified 11/26/19 21:50 hives trimethoprim Allergy Intermediate Hives Verified 11/26/19 21:50 vancomycin Allergy Intermediate rash Verified 11/26/19 21:50 tobramycin Allergy Mild Hives Verified 11/26/19 21:50 amikacin Allergy Unknown PER DR Verified 11/26/19 21:50 ROBINS,RXN WAS TO ZOSYN NOT AMKrash;hives Bactrim Allergy Unknown Hives Verified 01/11/18 17:31 onabotulinumtoxinA Allergy Unknown Rash/swelling Verified 11/26/19 21:50 [From Botox] at injection site sulfamethoxazole Allergy Unknown Hives Verified 11/26/19 21:50 buspirone AdvReac Severe HALLUCINATI Verified 11/26/19 21:50 ONS piperacillin AdvReac Intermediate SEVERE Verified 11/26/19 21:50 RASH, HIVES tazobactam AdvReac Intermediate SEVERE Verified 11/26/19 21:50 RASH, HIVES latex AdvReac Rash Verified 11/26/19 21:50 Consultations 11/26/19 20:23 ED Decision to Admit Stat 11/27/19 09:08 Consult Wound Care Provider Routine Hospital Course (1) Abnormal laboratory test result: Connie Chairez is a 34 yo F w/ complex pMHx. of obesity, DM II, sleep apnea, spina bifida, hydrocephalus, stage II pressure ulcer, MRSA carrier, hyperprolactinemia, neurogenic bladder, chronic suprapubic catheter, GERD, bilateral BKA, H/O PE on Eliquis who is presenting today with worsening pain and positive blood cultures from wound clinic on 11/21. She has been seen in the past by infectious disease after, "debridement on 10/02 w/ wound cultures (right ischeal ulcer) that at the time grew few pseudomonas and few MRSA, both heavily resistant and many strep (no final ID done)." Abnormal wound cultures: - cultures demonstrated Pseudomonas, MRSA, and many Strep species - no wound of sacrum or ischium - Wound Care consulted: no evidence of current wound or drainage - given the extensive antibiotics history and infection history this patient has had, in the absence of active wound or signs of infection this wound specimen growth likely represents colonization of these bacteria in place of normal skin luis - advised patient to continue to monitor for signs of infection, and follow-up with Wound Care Clinic as previously outlined Total Time Total Time Spent Total Time Spent (In Minutes): <30 Discharge Plan Discharge Items Patient Disposition: Home - Home Health Services Reason For Visit: WOUND INFECTION Discharge Diagnosis: Abnormal lab Activity: Per Instructions section Non-emergency contact: Primary Care Provider Call non-emergency contact if: you have any medication questions, your symptoms worsen and you have a fever Follow-up/Referrals: Gela Boone MD [Primary Care Provider] - 12/06/19 11:00 am Diet: Regular Addtl Attending Provider Instructions: You were seen and admitted following having a wound culture that demonstrated some abnormal growth; however, during this admission in concert with the wound care team this was deemed unlikely to be an infection of your wound and more likely to represent changes to your normal skin bacteria that while you are not having any wounds is not concerning. Pending Studies at Discharge: No Stand-Alone Forms: [employer], Smoking Cessation Medications and DC Order Prescriptions: Continued cyanocobalamin (vitamin B-12) 1,000 mcg capsule 1,000 mcg PO Q2D RF: 0 ferrous sulfate 325 mg (65 mg iron) tablet 325 mg PO BID RF: 0 docusate sodium 100 mg capsule 100 mg PO DAILY RF: 0 fluticasone propion-salmeterol [Advair Diskus] 500-50 mcg/dose blister with device 1 inh INHALATION BID Qty: 60 RF: 5 levalbuterol HCl [Xopenex] 0.63 mg/3 mL solution for nebulization 0.63 mg INHALATION Q6H PRN (Reason: Shortness Of Breath) Qty: 36 RF: 1 hyoscyamine sulfate [Levsin] 0.125 mg tablet 0.125 mg PO TID Qty: 90 RF: 11 (DME) insulin syringe-needle U-100 [BD Insulin Syringe Ultra-Fine] 1 mL 30 gauge x 1/2" syringe See Rx Instructions .ROUTE .MEDSUPPLY Qty: 100 RF: 3 (DME) Nebulizer Qty: 1 RF: 0 atorvastatin 40 mg tablet 40 mg PO QPM Qty: 30 RF: 5 potassium chloride [Klor-Con M20] 20 mEq tablet,ER particles/crystals 40 meq PO BID Qty: 90 RF: 1 albuterol sulfate [ProAir HFA] 90 mcg/actuation HFA aerosol inhaler 2 puffs INH Q6 PRN (Reason: Shortness Of Breath Or Wheezing) Qty: 8 RF: 3 Lantus U-100 Insulin 100 unit/mL solution 20 units SQ DAILY RF: 0 Hydrofera Blue 4 X 4 " bandage 1 ea TOP BID RF: 0 (DME) Accu-Chek Guide test strips Strip See Rx Instructions .ROUTE .MEDSUPPLY Qty: 100 RF: 5 (DME) lancets [Accu-Chek Fastclix Lancet Drum] Misc See Rx Instructions .ROUTE .MEDSUPPLY Qty: 100 RF: 5 riboflavin (vitamin B2) 400 mg tablet 400 mg PO QAM RF: 0 Adult Multivitamin Gummies 200 mcg tablet,chewable 1 mcg PO QDL RF: 0 Ozempic 0.25 mg or 0.5 mg(2 mg/1.5 mL) pen injector 0.25 mg SQ WEEKLY Qty: 1.5 RF: 1 mexiletine 150 mg capsule 300 mg PO TIDM RF: 0 metoclopramide HCl [Reglan] 10 mg tablet 10 mg PO BID MDD 2x/wk PRN (Reason: acute headaches) RF: 0 polyethylene glycol 3350 [Miralax] 17 gram/dose Powder 17 g PO DAILY RF: 0 diphenhydramine HCl [Benadryl] 25 mg Capsule 25 mg PO QID PRN (Reason: Allergic Symptoms) RF: 0 magnesium 200 mg tablet 400 mg PO Q2D RF: 0 dihydroergotamine [D.H.E.45] 1 mg/mL Solution 1 mg subcut UD PRN (Reason: Headache) RF: 0 venlafaxine 75 mg capsule,extended release 24hr 75 mg PO DAILY RF: 0 quetiapine 100 mg tablet 100 mg PO HS RF: 0 haloperidol 2 mg tablet 2 mg PO BID PRN (Reason: Agitation) RF: 0 trazodone 150 mg tablet 300 mg PO HS RF: 0 levothyroxine [Synthroid] 100 mcg tablet 100 mcg PO DAILYBB RF: 0 methylprednisolone 4 mg tablets,dose pack See Rx Instructions .ROUTE .COMPLEX Qty: 21 RF: 0 Rexulti 2 mg tablet 4 mg PO QAM RF: 0 hydroxyzine HCl 25 mg tablet See Rx Instructions .ROUTE .COMPLEX RF: 0 ondansetron 8 mg tablet,disintegrating 8 mg PO Q6H PRN (Reason: Nausea) RF: 0 famotidine [Pepcid] 40 mg tablet 40 mg PO HS RF: 0 cetirizine [Zyrtec] 10 mg tablet 10 mg PO BID PRN (Reason: Allergies or Antibiotics) RF: 0 loratadine [Claritin] 10 mg Tablet 10 mg PO QAM RF: 0 Renacidin 1,980.6 mg-59.4 mg-980.4mg/30mL solution 0 ml UD RF: 0 quetiapine [Seroquel] 25 mg tablet 12.5 mg PO DAILY@0700,1400 RF: 0 acetaminophen [Tylenol Extra Strength] 500 mg Tablet 1,000 mg PO Q6H PRN (Reason: Fever Or Pain) RF: 0 (DME) blood-glucose meter [Accu-Chek Guide Glucose Meter] Misc See Rx Instructions .ROUTE .MEDSUPPLY Qty: 1 RF: 0 (DME) lancets [Accu-Chek Fastclix Lancet Drum] Misc See Rx Instructions .ROUTE .MEDSUPPLY Qty: 100 RF: 0 (DME) blood sugar diagnostic [Accu-Chek Guide test strips] Strip See Rx Instructions .ROUTE .MEDSUPPLY Qty: 100 RF: 0 promethazine 12.5 mg Tablet 12.5 mg PO Q6H PRN (Reason: Headache) RF: 0 Probiotic 100 billion cell Capsule 1 cap PO QDL RF: 0 pantoprazole 40 mg tablet,delayed release (DR/EC) 40 mg PO BID RF: 0 venlafaxine 150 mg Tablet Extended Release 24hr 150 mg PO QAM RF: 0 Eliquis 5 mg tablet 5 mg PO BID RF: 0 Discharge Orders: Discharge Order (Routine); Ordered 11/27/19 Ordered By: Akil Grier Admission Data Admit Date/Time: 11/26/19 21:46 Attending Provider: Paul Cabrales Admit Provider: Tereso Bull Primary Care Provider: Gela Boone Other Providers: Nav Galvan ; Qamar Bauman ; [place] Other Interventions: Discharge Summary Assessment (RN) Last Done: 11/27/19 15:46 DC Date/Time DO NOT enter until pt leaves facility: 11/27/19 16:19 Supervising Physician Co-Signing Physician Notes I personally examined the patient and verified all canales points of history and exam, discussed case, and agree with decision making with Dr Grier. feeling good and wants to go home. d/w wound team - wound has healed, no signs of cellulitis vitals noted nad heent nc at mmm breathing unlabored no accessory muscles skin no rashes no pallor or icterus (+) MRSA and pseudomonas skin culture - agree that without evidence of cellulitis, almost certainly just colonization. with no infection, no benefit to treating colonization (and actually with her already multi-drug resistant luis, risk significantly outweighs benefit both in terms of direct side effect AND in selecting for even harder to treat bacteria for possible future infections) otherwise as above, stable for home Resident Activity Tracking Resident Involvement: Resident Care Provided Care Provided: Adult Hospital Medicine
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
--- NOTE | 2019-11-27 16:35 | Billing Data ---
Date of Service November 27, 2019 Coding Level of Care Code D/C Day Management <30 mins
[2019-11-27] MEDS ORDERED: DAPTOmycin 275 MG in SYRINGE 0 ML IV SCH (20:00)
[2019-11-27] MEDS ORDERED: FAMOTIDINE 40 MG TABLET PO SCH (21:00)
[2019-11-27] MEDS ORDERED: QUETIAPINE FUMARATE 100 MG TABLET PO SCH (21:00)
[2019-11-27] MEDS ORDERED: TRAZODONE HCL 100 MG TAB PO SCH (21:00)
--- NOTE | 2019-11-29 04:20 | Billing Data ---
Date of Service November 29, 2019 Coding Level of Care Code 54194 Initial Inpt Care Lvl 3
== END 2019-11-27 16:19 | disposition home health service (06) ==
LOC: ED 15:26 → 2W 21:46 → SUATTDRO 21:46 → INTOOBSV 21:46 → 2W 22:09

== ENCOUNTER 2019-12-27 17:15 | Observation (INO) ==
--- NOTE | 2019-12-27 19:12 | Emergency Department Note ---
Impression & Plan Urinary tract infection ED Provider Note INFORMANT: [Patient] mother ED PROVIDER(S): Madan Nevarez MD CHIEF COMPLAINT: UTI PLAN: Disposition: Admitted Condition: [Good] MEDICAL DECISION MAKING: Patient presented by direction of infectious disease for treatment of Klebsiella UTI. Because of her allergies cefepime was recommended. She has had cefepime before with a recommendation from allergy to have Benadryl. This was administered. She has normal renal function done yesterday. Her CBC today does not show any significant leukocytosis. I did consult with infectious disease, Dr. Mckeon at [facility]. She did review the EMR and recommended every 8 cefepime dosing. Due to the time of day the patient will need to be admitted to the hospital for IV antibiotic and coordination for outpatient treatment. This was discussed with Dr. Nav Galvan of the [facility]. He evaluated the patient in the ER and treated her. Triage Nursing notes reviewed and agree them. [Additional history obtained from] patient's mother [Prior medical records reviewed] UTI revealed Pseudomonas which is colonized and a pansensitive Klebsiella except for some mild intermediate resistance to Macrobid. Vital Signs: reviewed and remarkable for [no significant abnormalities] Differential diagnosis: Etiologies such as UTI, cystitis, pyelonephritis, intra-abdominal process as well as others were entertained. Diagnostics interpreted by me: Imaging studies: Deferred Consultation(s): [facility] HPI: The patient is a 34 year old female who presents to the Emergency Room with complaints of urinary tract infection. This started one week ago and is complicated due allergies and culture results. [facility] notified the patient to come to the ER for treatment and to contact them. The patient also notes the following associated symptoms, migraine, nausea abdominal pain. The patient has not found relieving factors. Current pain is rated as 9/10. Pt denies LOC, fevers, chills, diaphoresis, visual changes, neck pain, chest pain, breathing difficulties, vomiting, back pain, melena, hematochezia, numbness, weakness, lymphadenopathy, rash, or other complaints. ROS: See above HPI for pertinent positives & negatives. A total of [10] systems reviewed and were otherwise negative. PAST MEDICAL HISTORY:[See Below] UTI, chronic migraine PAST SURGICAL HISTORY:[See Below] FAMILY HISTORY:[See Below] SOCIAL HISTORY:[See Below] lives with family HOME MEDICATIONS:[See Below] ALLERGIES:[See Below] VITALS:[See Below] PHYSICAL EXAMINATION: GENERAL: Awake, alert, well-appearing, in no distress HENT: Normocephalic, atraumatic. Oropharynx unremarkable. EYES: Normal conjunctiva. Sclera non-icteric. NECK: Inspection normal. Non-tender. Supple. No nuchal rigidity. FROM. No masses. RESPIRATORY: Clear to auscultation. No wheezes. No rales. Normal respiratory effort. CARDIAC: Normal rate. Normal rhythm. No murmurs. No rubs. Extremities warm and well perfused. Pulses equal. No JVD. GI: Soft, non-distended. Suprapubic tenderness to palpation. No rebound or guarding. No masses. RECTAL: Deferred. MUSCULOSKELETAL: Atraumatic. Chest examination reveals no tenderness. Mediport in the right upper chest. The back is symmetrical on inspection without obvious abnormality. There is no CVA tenderness to palpation. No joint edema. NEURO: Normal sensorium. No sensory deficits noted. SKIN: No rash or jaundice noted. ED COURSE: [Critical Care:] [None] Madan Nevarez MD Past Med/Surg History Social History Smoking Status: Never smoker Second Hand Exposure: No; Hx Alcohol Use: No Hx Substance Use: No Preferred Language: Ukrainian Communication Ability: Effective Visual Impairment: Limited Hearing Ability: Normal Security Inspector Required: No Beliefs That Will Affect Care: None marital status: Single Current Living Situation: Family Current Living Situation Comment: House current occupational status: disabled Feels Safe at Home: Yes during the past year weight has: remained stable Allergies Allergies Allergy/AdvReac Type Severity Reaction Status Date / Time chlorhexidine Allergy Severe blisters Verified 12/19/19 11:54 adhesive Allergy Intermediate TAPE- HIVES Verified 12/19/19 11:54 ceftriaxone Allergy Intermediate rash, Has Verified 12/19/19 11:54 tolerated cefepime and Zerbaxa ciprofloxacin Allergy Intermediate hives Verified 12/19/19 11:54 clindamycin Allergy Intermediate Redness/Itc Verified 12/19/19 11:54 hiness imipenem Allergy Intermediate PT REPORTS Verified 12/19/19 11:54 ITCHING levofloxacin Allergy Intermediate rash,HEARD Verified 12/19/19 11:54 VOICES linezolid Allergy Intermediate rash Verified 12/19/19 11:54 nitrofurantoin Allergy Intermediate rash and Verified 12/19/19 11:54 hives trimethoprim Allergy Intermediate Hives Verified 12/19/19 11:54 vancomycin Allergy Intermediate rash Verified 12/19/19 11:54 amikacin Allergy Unknown PER DR Verified 12/19/19 11:54 ROBINS,RXN WAS TO ZOSYN NOT AMKrash;hives Bactrim Allergy Unknown Hives Verified 01/11/18 17:31 onabotulinumtoxinA Allergy Unknown Rash/swelling Verified 12/19/19 11:54 [From Botox] at injection site sulfamethoxazole Allergy Unknown Hives Verified 12/19/19 11:54 buspirone AdvReac Severe HALLUCINATI Verified 12/19/19 11:54 ONS piperacillin AdvReac Intermediate SEVERE Verified 12/19/19 11:54 RASH, HIVES tazobactam AdvReac Intermediate SEVERE Verified 12/19/19 11:54 RASH, HIVES tobramycin AdvReac Mild Hives Verified 12/19/19 11:54 latex AdvReac Rash Verified 12/19/19 11:54 Home Meds Home Medications Medication Instructions Recorded Confirmed metoclopramide HCl [Reglan] 10 mg PO Q8 PRN MDD 2x/wk 02/17/18 12/17/19 mexiletine 300 mg PO TID 02/17/18 12/17/19 hydroxyzine HCl 25 - 50 mg PO QID PRN 11/01/18 12/17/19 polyethylene glycol 3350 [Miralax] 17 g PO TID PRN 03/17/19 12/17/19 loratadine [Claritin] 10 mg PO QAM 06/07/19 12/17/19 quetiapine [Seroquel] 12.5 mg PO AMPM 06/07/19 12/17/19 famotidine 40 mg tablet 40 mg PO HS tab 07/22/19 12/17/19 pantoprazole [Protonix] 40 mg PO BID 08/01/19 12/17/19 riboflavin (vitamin B2) 400 mg 400 mg PO QDD 08/02/19 12/17/19 tablet venlafaxine 150 mg PO QAM 09/24/19 12/17/19 dihydroergotamine [D.H.E.45] 1 mg SUBCUT UD PRN 09/27/19 12/17/19 haloperidol 2 mg PO BID PRN 10/12/19 12/17/19 levothyroxine [Synthroid] 100 mcg PO DAILYBB 10/12/19 12/17/19 quetiapine [Seroquel] 100 mg PO HS 10/12/19 12/17/19 trazodone 300 mg PO HS 10/12/19 12/17/19 venlafaxine [Effexor XR] 75 mg PO QAM 10/12/19 12/17/19 cyanocobalamin (vitamin B-12) 1,000 mcg PO Q2D cap 11/01/19 12/17/19 1,000 mcg capsule docusate sodium 100 mg capsule 100 mg PO QAM 11/01/19 12/17/19 ferrous sulfate 325 mg (65 mg 325 mg PO QAM tab 11/01/19 12/17/19 iron) tablet magnesium 200 mg tablet 400 mg PO Q2D tab 11/01/19 12/17/19 PNV cmb#95-ferrous fumarate-FA 1 tab PO QDL 12/07/19 12/19/19 [] acetaminophen [Tylenol Extra 500 - 1,000 mg PO UD PRN 12/07/19 12/19/19 Strength] hyoscyamine sulfate [Levsin] 0.125 mg PO TIDM 12/07/19 12/19/19 lidocaine [Lidoderm] 1 patch TOP DAILY PRN 12/07/19 12/19/19 montelukast [Singulair] 10 mg PO QAM 12/07/19 12/19/19 apixaban [Eliquis] 5 mg PO BID 12/17/19 12/19/19 atorvastatin 40 mg PO DAILY 12/17/19 12/19/19 brexpiprazole [Rexulti] 4 mg PO QAM 12/17/19 12/19/19 cetirizine 10 mg PO DAILY PRN 12/17/19 12/19/19 cyproheptadine 2 mg PO TID 12/17/19 12/19/19 semaglutide 1.25 mg SUBCUT WK ml 12/19/19 12/19/19 Previous Rx's Medication Instructions Recorded fluticasone 500 mcg-salmeterol 50 1 inh INHALATION BID #60 ea 03/25/19 mcg/dose blistr powdr for inhalation levalbuterol HCl 0.63 mg/3 mL 0.63 mg INHALATION Q6H PRN #36 ml 03/27/19 solution for nebulization blood sugar diagnostic [Accu-Chek #100 ea 07/01/19 Guide test strips] blood-glucose meter [Accu-Chek #1 ea 07/01/19 Guide Glucose Meter] lancets [Accu-Chek Fastclix Lancet #100 ea 07/01/19 Drum] blood sugar diagnostic #100 ea 07/12/19 lancets #100 ea 07/12/19 Nebulizer #1 ea 08/07/19 albuterol sulfate 90 mcg/actuation 2 puffs INH Q6 PRN #8 gm 11/11/19 aerosol inhaler insulin glargine 100 unit/mL (3 20 units SQ DAILY #15 ml 12/20/19 mL) subcutaneous pen ondansetron 8 mg disintegrating 8 mg PO Q6H PRN #120 tab 12/20/19 tablet pen needle, diabetic 29 gauge x #30 ea 12/20/1906/06" Results & Data (ED) Vital Signs Vital Signs - 24 hr 12/27/19 17:38 12/27/19 19:00 12/27/19 20:55 Temperature 36.9 C Temperature Source Oral Pulse Rate 101 H Pulse Rate [Left Finger] 93 H 109 H Pulse Rhythm Regular Pulse Strength Normal Respiratory Rate 24 18 20 Respiratory Effort / Characteristics Non-Labored Spontaneous Non-Labored Spontaneous Respiratory Depth Normal Normal Respiratory Pattern Regular Blood Pressure 126/77 Blood Pressure [Left Arm] 123/81 141/88 H Blood Pressure Mean 93 Blood Pressure Mean [Left Arm] 95 105 Blood Pressure Position Sitting Pulse Oximetry 93 96 98 Oxygen Delivery Method Room Air Room Air Room Air Sepsis Recent Fever Within 48 Hours No Sepsis New/Unexplained Change in Mental Status No Sepsis Action Taken by Nursing No Action Required Laboratory Data Result diagrams: 12/27/19 20:20 Lab Results 12/27/19 Range/Units 20:20 WBC 9.30 (4.8-10.8) K/uL RBC 4.70 (4.2-5.4) M/uL Hgb 12.9 (12.0-16.0) g/dL Hct 41.0 (37-47) % MCV 87.2 (80-100) fL MCH 27.4 (25-34) pg MCHC 31.5 L (32-36) g/dL RDW Std Deviation 56.4 H (36.4-46.3) fL RDW Coeff of Neda 17.6 H (11.5-14.5) % Plt Count 296 (130-400) K/uL MPV 9.8 (7.4-10.4) fL Immature Gran % (Auto) 0.2 % Neut % (Auto) 64.6 % Lymph % (Auto) 24.7 % [place] % (Auto) 6.9 % Eos % (Auto) 3.3 % Baso % (Auto) 0.3 % Neut # (Auto) 6.00 (1.4-6.5) K/uL Lymph # (Auto) 2.30 (1.2-3.4) K/uL [place] # (Auto) 0.64 H (0.11-0.59) K/uL Eos # (Auto) 0.31 (0-0.5) K/uL Baso # (Auto) 0.03 (0-0.2) K/uL Immature Gran # (Auto) 0.02 (0.00-0.02) K/uL Administered Medications Discontinued Medications Diphenhydramine HCl (Benadryl) 50 mg IV NOW STA Stop: 12/27/19 19:43 Last Admin: 12/27/19 20:30 Dose: 50 mg Documented by: [id number] Cefepime HCl (Maxipime) 2,000 mg in 20 mls @ 5 mls/min IV NOW STA; Protocol Stop: 12/27/19 19:45 Last Admin: 12/27/19 20:43 Dose: 5 mls/min Documented by: [id number] Morphine Sulfate (Morphine Sulfate) 4 mg IV NOW STA Stop: 12/27/19 20:51 Last Admin: 12/27/19 21:08 Dose: 4 mg Documented by: [id number] Ondansetron HCl (Zofran) 4 mg IV NOW STA Stop: 12/27/19 20:51 Last Admin: 12/27/19 21:08 Dose: 4 mg Documented by: [id number] Discharge Plan Visit Data Chief Complaint: Urinary Symptoms Stated Complaint: UTI ED Provider: Madan Nevarez Discharge Problem: Urinary tract infection Forms Stand Alone Forms: My [facility] Prescriptions Prescriptions: No Action cyanocobalamin (vitamin B-12) 1,000 mcg capsule 1,000 mcg PO Q2D RF: 0 ferrous sulfate [Iron (ferrous sulfate)] 325 mg (65 mg iron) tablet 325 mg PO QAM RF: 0 docusate sodium [Colace] 100 mg capsule 100 mg PO QAM RF: 0 fluticasone propion-salmeterol [Advair Diskus] 500-50 mcg/dose blister with device 1 inh INHALATION BID Qty: 60 RF: 5 levalbuterol HCl [Xopenex] 0.63 mg/3 mL solution for nebulization 0.63 mg INHALATION Q6H PRN (Reason: Shortness Of Breath) Qty: 36 RF: 1 (DME) Nebulizer Qty: 1 RF: 0 albuterol sulfate [ProAir HFA] 90 mcg/actuation HFA aerosol inhaler 2 puffs INH Q6 PRN (Reason: Shortness Of Breath Or Wheezing) Qty: 8 RF: 3 ondansetron 8 mg tablet,disintegrating 8 mg PO Q6H PRN (Reason: Nausea) Qty: 120 RF: 11 (DME) Accu-Chek Guide test strips Strip See Rx Instructions .ROUTE .MEDSUPPLY Qty: 100 RF: 5 (DME) lancets [Accu-Chek Fastclix Lancet Drum] Misc See Rx Instructions .ROUTE .MEDSUPPLY Qty: 100 RF: 5 riboflavin (vitamin B2) 400 mg tablet 400 mg PO QDD RF: 0 Lantus Solostar U-100 Insulin 100 unit/mL (3 mL) insulin pen 20 units SQ DAILY Qty: 15 RF: 3 (DME) pen needle, diabetic [BD Ultra-Fine Orig Pen Needle] 29 gauge x 1/2" needle See Rx Instructions .ROUTE .MEDSUPPLY Qty: 30 RF: 5 mexiletine 150 mg capsule 300 mg PO TID RF: 0 metoclopramide HCl [Reglan] 10 mg tablet 10 mg PO Q8 MDD 2x/wk PRN (Reason: acute headaches) RF: 0 polyethylene glycol 3350 [Miralax] 17 gram/dose Powder 17 g PO TID PRN (Reason: Constipation) RF: 0 magnesium 200 mg tablet 400 mg PO Q2D RF: 0 dihydroergotamine [D.H.E.45] 1 mg/mL Solution 1 mg subcut UD PRN (Reason: Headache) RF: 0 venlafaxine [Effexor XR] 75 mg capsule,extended release 24hr 75 mg PO QAM RF: 0 quetiapine [Seroquel] 100 mg tablet 100 mg PO HS RF: 0 haloperidol 2 mg tablet 2 mg PO BID PRN (Reason: Headache) RF: 0 trazodone 150 mg tablet 300 mg PO HS RF: 0 levothyroxine [Synthroid] 100 mcg tablet 100 mcg PO DAILYBB RF: 0 Ozempic 0.25 mg or 0.5 mg(2 mg/1.5 mL) pen injector 1.25 mg SUBCUT WK RF: 0 atorvastatin 40 mg tablet 40 mg PO DAILY RF: 0 cetirizine 10 mg tablet 10 mg PO DAILY PRN (Reason: Allergy Symptoms) RF: 0 Eliquis 5 mg tablet 5 mg PO BID RF: 0 cyproheptadine 4 mg tablet 2 mg PO TID RF: 0 Rexulti 4 mg tablet 4 mg PO QAM RF: 0 hydroxyzine HCl 25 mg tablet 25 - 50 mg PO QID PRN (Reason: Anxiety) RF: 0 famotidine [Pepcid] 40 mg tablet 40 mg PO HS RF: 0 loratadine [Claritin] 10 mg Tablet 10 mg PO QAM RF: 0 quetiapine [Seroquel] 25 mg tablet 12.5 mg PO AMPM RF: 0 (DME) blood-glucose meter [Accu-Chek Guide Glucose Meter] Misc See Rx Instructions .ROUTE .MEDSUPPLY Qty: 1 RF: 0 (DME) lancets [Accu-Chek Fastclix Lancet Drum] Misc See Rx Instructions .ROUTE .MEDSUPPLY Qty: 100 RF: 0 (DME) blood sugar diagnostic [Accu-Chek Guide test strips] Strip See Rx Instructions .ROUTE .MEDSUPPLY Qty: 100 RF: 0 pantoprazole [Protonix] 40 mg tablet,delayed release (DR/EC) 40 mg PO BID RF: 0 venlafaxine 150 mg Tablet Extended Release 24hr 150 mg PO QAM RF: 0 montelukast [Singulair] 10 mg Tablet 10 mg PO QAM RF: 0 PNV cmb#95-ferrous fumarate-FA [] 28 mg iron- 800 mcg Tablet 1 tab PO QDL RF: 0 hyoscyamine sulfate [Levsin] 0.125 mg tablet 0.125 mg PO TIDM RF: 0 lidocaine [Lidoderm] 5 % adhesive patch,medicated 1 patch TOP DAILY PRN (Reason: pain) RF: 0 acetaminophen [Tylenol Extra Strength] 500 mg Tablet 500 - 1,000 mg PO UD PRN (Reason: Pain) RF: 0
[2019-12-27] MEDS ORDERED: DiphenhydrAMINE HCL 50 MG/ML VIAL IV STA (19:42)
[2019-12-27] MEDS ORDERED: CEFEPIME 2,000 MG/20 ML VIAL IV STA (19:42)
[2019-12-27 20:41] LABS: Basophils # (auto) 0.03 K/uL (0-0.2); Basophils % (auto) 0.3 %; Eosinophils # (auto) 0.31 K/uL (0-0.5); Eosinophils % (auto) 3.3 %; Hemoglobin 12.9 g/dL (12.0-16.0); Immature Granulocytes # (auto) 0.02 K/uL (0.00-0.02); Immature Granulocytes % (auto) 0.2 %; Lymphocytes % (auto) 24.7 %; Mean Corpuscular Hemoglobin 27.4 pg (25-34); Mean Corpuscular Hgb Conc 31.5 g/dL (32-36); Mean Corpuscular Volume 87.2 fL (80-100); Mean Platelet Volume 9.8 fL (7.4-10.4); Monocytes # (auto) 0.64 K/uL (0.11-0.59); Monocytes % (auto) 6.9 %; Neutrophils % (auto) 64.6 %; Platelet Count 296 K/uL (130-400); RDW Coefficient of Variation 17.6 % (11.5-14.5); RDW Standard Deviation 56.4 fL (36.4-46.3)
[2019-12-27] MEDS ORDERED: ONDANSETRON INJ 2 MG/ML 2 ML VIAL IV STA (20:50)
[2019-12-27] MEDS ORDERED: MoRPHine SULFATE 4 MG/ML 1 ML CARP\\VIAL IV STA (20:50)
--- NOTE | 2019-12-27 23:20 | History & Physical Report ---
Date of Service December 27, 2019 Assessment & Plan (1) UTI due to Klebsiella species: UTI due to MDR Klebsiella/indwelling Meade catheter/recurrent UTIs- Cefepime 2 g IV every 8 hours Last transition social worker to help arrange for outpatient IV antibiotics. Patient does have a port for access. Present on Admission?: Yes (2) Infection with multi-drug resistant microorganisms: See above Present on Admission?: Yes (3) Indwelling Meade catheter present: See above Present on Admission?: Yes (4) Frequent urinary tract infections: See above Present on Admission?: Yes (5) Pressure ulcer of ischium, stage 2: Patient reports that this periodically opens up in her right pelvic area, but presently is not a concern Present on Admission?: Yes (6) Mixed hyperlipidemia: Continue atorvastatin 40 mg daily Present on Admission?: Yes (7) Type 2 diabetes mellitus: Continue glargine insulin 20 and subcu daily Placed on Accu-Cheks before meals and at bedtime with NovoLog coverage Check hemoglobin A1c Present on Admission?: Yes (8) Hypothyroidism: Continue levothyroxine 100 mcg daily with breakfast Present on Admission?: Yes (9) History of pulmonary embolism: Continue Eliquis 5 mg p.o. twice daily Present on Admission?: Yes (10) Schizoaffective disorder: Schizoaffective disorder/bipolar 1 disorder/migraine- Continue Rexulti, dihydroergotamine, cyproheptadine, haloperidol as needed, hydroxyzine as needed, Seroquel, trazodone and venlafaxine Present on Admission?: Yes (11) Bipolar 1 disorder: See above Present on Admission?: Yes History of Present Illness Chief Complaint: The patient was referred to the emergency department by infectious disease, Dr. Mckeon at [facility] in [place], for treatment of MDR Klebsiella UTI. 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 The patient was referred to the ED ji for treatment of MDR Klebsiella UTI, and specifically requested cefepime every 8 hour dosing, with plans to arrange and coordinate for outpatient IV antibiotic therapy. Allergies Allergy/AdvReac Type Severity Reaction Status Date / Time chlorhexidine Allergy Severe blisters Verified 12/19/19 11:54 adhesive Allergy Intermediate TAPE- HIVES Verified 12/19/19 11:54 ceftriaxone Allergy Intermediate rash, Has Verified 12/19/19 11:54 tolerated cefepime and Zerbaxa ciprofloxacin Allergy Intermediate hives Verified 12/19/19 11:54 clindamycin Allergy Intermediate Redness/Itc Verified 12/19/19 11:54 hiness imipenem Allergy Intermediate PT REPORTS Verified 12/19/19 11:54 ITCHING levofloxacin Allergy Intermediate rash,HEARD Verified 12/19/19 11:54 VOICES linezolid Allergy Intermediate rash Verified 12/19/19 11:54 nitrofurantoin Allergy Intermediate rash and Verified 12/19/19 11:54 hives trimethoprim Allergy Intermediate Hives Verified 12/19/19 11:54 vancomycin Allergy Intermediate rash Verified 12/19/19 11:54 amikacin Allergy Unknown PER DR Verified 12/19/19 11:54 ROBINS,RXN WAS TO ZOSYN NOT AMKrash;hives Bactrim Allergy Unknown Hives Verified 01/11/18 17:31 onabotulinumtoxinA Allergy Unknown Rash/swelling Verified 12/19/19 11:54 [From Botox] at injection site sulfamethoxazole Allergy Unknown Hives Verified 12/19/19 11:54 buspirone AdvReac Severe HALLUCINATI Verified 12/19/19 11:54 ONS piperacillin AdvReac Intermediate SEVERE Verified 12/19/19 11:54 RASH, HIVES tazobactam AdvReac Intermediate SEVERE Verified 12/19/19 11:54 RASH, HIVES tobramycin AdvReac Mild Hives Verified 12/19/19 11:54 latex AdvReac Rash Verified 12/19/19 11:54 Home Medications Home Medications Medication Instructions Recorded Confirmed Type metoclopramide HCl [Reglan] 10 mg PO Q8 PRN MDD 2x/wk 02/17/18 12/27/19 History mexiletine 300 mg PO TID 02/17/18 12/27/19 History hydroxyzine HCl 25 - 50 mg PO QID PRN 11/01/18 12/27/19 History polyethylene glycol 3350 [Miralax] 17 g PO TID PRN 03/17/19 12/27/19 History fluticasone 500 mcg-salmeterol 50 1 inh INHALATION BID #60 ea 03/25/19 12/27/19 Rx mcg/dose blistr powdr for inhalation levalbuterol HCl 0.63 mg/3 mL 0.63 mg INHALATION Q6H PRN #36 ml 03/27/19 12/27/19 Rx solution for nebulization loratadine [Claritin] 10 mg PO QAM 06/07/19 12/27/19 History quetiapine [Seroquel] 12.5 mg PO .BID/UD 06/07/19 12/27/19 History famotidine 40 mg tablet 40 mg PO HS tab 07/22/19 12/27/19 History pantoprazole [Protonix] 40 mg PO BID 08/01/19 12/27/19 History riboflavin (vitamin B2) 400 mg 400 mg PO QDD 08/02/19 12/27/19 History tablet venlafaxine 150 mg PO QAM 09/24/19 12/27/19 History dihydroergotamine [D.H.E.45] 1 mg SUBCUT UD PRN 09/27/19 12/27/19 History haloperidol 2 mg PO BID PRN 10/12/19 12/27/19 History levothyroxine [Synthroid] 100 mcg PO DAILYBB 10/12/19 12/27/19 History quetiapine [Seroquel] 200 mg PO HS 10/12/19 12/27/19 History trazodone 300 mg PO HS 10/12/19 12/27/19 History venlafaxine [Effexor XR] 75 mg PO QAM 10/12/19 12/27/19 History cyanocobalamin (vitamin B-12) 1,000 mcg PO Q2D cap 11/01/19 12/27/19 History 1,000 mcg capsule docusate sodium 100 mg capsule 100 mg PO QAM 11/01/19 12/27/19 History ferrous sulfate 325 mg (65 mg 325 mg PO QAM tab 11/01/19 12/27/19 History iron) tablet magnesium 200 mg tablet 400 mg PO Q2D tab 11/01/19 12/27/19 History albuterol sulfate 90 mcg/actuation 2 puffs INH Q6 PRN #8 gm 11/11/19 12/27/19 Rx aerosol inhaler PNV cmb#95-ferrous fumarate-FA 1 tab PO QDL 12/07/19 12/27/19 History [] acetaminophen [Tylenol Extra 500 - 1,000 mg PO UD PRN 12/07/19 12/27/19 History Strength] hyoscyamine sulfate [Levsin] 0.125 mg PO TIDM 12/07/19 12/27/19 History lidocaine [Lidoderm] 1 patch TOP DAILY PRN 12/07/19 12/27/19 History montelukast [Singulair] 10 mg PO QAM 12/07/19 12/27/19 History apixaban [Eliquis] 5 mg PO BID 12/17/19 12/27/19 History atorvastatin 40 mg PO DAILY 12/17/19 12/27/19 History brexpiprazole [Rexulti] 4 mg PO QAM 12/17/19 12/27/19 History cetirizine 10 mg PO DAILY PRN 12/17/19 12/27/19 History cyproheptadine 2 mg PO TID 12/17/19 12/27/19 History semaglutide 1.25 mg SUBCUT WK ml 12/19/19 12/27/19 History insulin glargine 100 unit/mL (3 20 units SQ DAILY #15 ml 12/20/19 12/27/19 Rx mL) subcutaneous pen ondansetron 8 mg disintegrating 8 mg PO Q6H PRN #120 tab 12/20/19 12/27/19 Rx tablet Past Med/Surg History Social History Smoking Status: Never smoker Second Hand Exposure: No; Hx Alcohol Use: No Hx Substance Use: No Preferred Language: Georgian Communication Ability: Effective Visual Impairment: Limited Hearing Ability: Normal Review Analyst Required: No Beliefs That Will Affect Care: None marital status: Single Current Living Situation: Parent and Family Current Living Situation Comment: House current occupational status: disabled Other Information That Helps Us Care for You: No Feels Safe at Home: Yes Safety Concerns: Feels Safe At This Time during the past year weight has: remained stable Review of Systems Review of Systems: The patient denies chest pain, palpitations, shortness of breath, dyspnea on exertion, cough, lower extremity swelling, sore throat, fevers, chills, sweats, nausea, vomiting, diarrhea , blood in urine or stool, lightheadedness, dizziness, headache, memory loss, loss of consciousness, rash, abnormal bruising or bleeding, generalized arthralgias or myalgias, back or neck pain, or night sweats. The review of systems is otherwise negative other than for that already noted above, and at least 10 systems have been reviewed. Physical Exam Physical Exam: The patient is awake, alert and oriented 3, well developed and well nourished, normocephalic and atraumatic, sitting upright in wheelchair and in no acute distress. HEENT--PERRL, EOMI, mucous membranes and oropharynx normal. Neck--supple. No JVD. No bruits. Thyroid normal, trachea midline, no adenopathy. Heart--normal S1 and S2. No murmurs, rubs or gallops. Lungs--clear bilaterally, no respiratory distress, no accessory muscle use. Abdomen--normal bowel sounds and soft. Nontender. Nondistended. Extremities--no cyanosis or clubbing. No edema. Dermatologic--normal skin turgor, normal color, no abnormal lymph nodes, no rash. Neurologic--cranial nerves II through XII grossly intact. Rheumatologic--limited exam Psychiatric--normal affect. Results & Data Results & Data ([facility]) Vital Signs (Past 12 Hours) Vital Signs Temp Pulse Pulse Resp BP BP Pulse Ox 12/27/19 22:52 78 18 138/80 99 12/27/19 20:55 109 H 20 141/88 H 98 12/27/19 19:00 93 H 18 123/81 96 12/27/19 17:38 98.4 F 101 H 24 126/77 93 Laboratory Results Laboratory Results WBC 9.30 K/uL (4.8-10.8) 12/27/19 20:20 RBC 4.70 M/uL (4.2-5.4) 12/27/19 20:20 Hgb 12.9 g/dL (12.0-16.0) 12/27/19 20:20 Hct 41.0 % (37-47) 12/27/19 20:20 MCV 87.2 fL (80-100) 12/27/19 20:20 MCH 27.4 pg (25-34) 12/27/19 20:20 MCHC 31.5 g/dL (32-36) L 12/27/19 20:20 RDW Std Deviation 56.4 fL (36.4-46.3) H 12/27/19 20:20 RDW Coeff of Neda 17.6 % (11.5-14.5) H 12/27/19 20:20 Plt Count 296 K/uL (130-400) 12/27/19 20:20 MPV 9.8 fL (7.4-10.4) 12/27/19 20:20 Immature Gran % (Auto) 0.2 % 12/27/19 20:20 Neut % (Auto) 64.6 % 12/27/19 20:20 Lymph % (Auto) 24.7 % 12/27/19 20:20 [place] % (Auto) 6.9 % 12/27/19 20:20 Eos % (Auto) 3.3 % 12/27/19 20:20 Baso % (Auto) 0.3 % 12/27/19 20:20 Neut # (Auto) 6.00 K/uL (1.4-6.5) 12/27/19 20:20 Lymph # (Auto) 2.30 K/uL (1.2-3.4) 12/27/19 20:20 [place] # (Auto) 0.64 K/uL (0.11-0.59) H 12/27/19 20:20 Eos # (Auto) 0.31 K/uL (0-0.5) 12/27/19 20:20 Baso # (Auto) 0.03 K/uL (0-0.2) 12/27/19 20:20 Immature Gran # (Auto) 0.02 K/uL (0.00-0.02) 12/27/19 20:20 Diagnostic Findings [facility], [place] [phone] Ultrasound Report Patient: LUCERO BERRIOS Date: 12/26/19 MR#: [id number] MARTIN Acct ID:[id number]: Date: 1985[facility] Zip: [place] [id number] Age: 34Location: ED Sex: F Room/Bed: Att Phy:Diagnosis: RIGHT KIDNEY PAIN- BLADDER PAIN Sara Phy: Gela Boone, MDService Date: 12/26/19 [facility] Phy:Interpreting Phy: Scar Martino Admit Phy: Ordering Phy: Jad Weinstein M.D. cc: ~ US renal/blad retro comp HISTORY: 34 years-old Female rt flank pain acute right-sided flank pain COMPARISON: Renal ultrasound 10/23/2019 TECHNIQUE: Multiple real-time sonographic images of the kidneys and urinary bladder were obtained assessing grayscale appearance and color flow FINDINGS: Limited exam secondary to patient body habitus. Increased echogenicity of the liver is suspicious for hepatic steatosis. The right kidney measures 8.9 cm in length and demonstrates no renal calculi or hydronephrosis. The left kidney measures 12.1 cm in length and demonstrates no renal calculi, hydronephrosis or suspicious mass lesion. Decompressed or bladder with Meade catheter. IMPRESSION: 1. Limited exam secondary to patient body habitus. 2. No renal calculi or hydronephrosis identified. 3. Decompressed urinary bladder with Meade catheter. ACT 112: Negative or not required by law. The above report was generated using voice recognition software. It may contain grammatical, syntax or spelling errors. Electronically signed by: Bob Martino M.D. 12/26/2019 6:52 PM Dictated: 12/26/191850 Transcribed: 12/26/191850 Code Status & VTE Plan Code Status Full code VTE Prophylaxis Plan VTE Prophylaxis will be ordered: Yes PG Care Time/CCT Total # of Minutes Spent Total Time Spent with Patient: Total time spent is greater than 50% in coordination of care (as documented) at patient's floor/unit and/or counseling patient: Coding Level of Care Code 85287 Initial Inpt Care Lvl 3 Diagnoses UTI due to Klebsiella species N39.0; B96.89 Infection with multi-drug resistant microorganisms Indwelling Meade catheter present Z97.8 Frequent urinary tract infections N39.0 Pressure ulcer of ischium, stage 2 L89.312 Laterality: right Mixed hyperlipidemia E78.2 Type 2 diabetes mellitus E11.9 Hypothyroidism E03.9 Hypothyroidism type: unspecified History of pulmonary embolism Z86.711 Schizoaffective disorder F25.0 Schizoaffective disorder type: bipolar Bipolar 1 disorder F31.9 (1) Pressure ulcer of ischium, stage 2 Laterality: right Qualified Code(s): L89.312 - Pressure ulcer of right buttock, stage 2 (2) Hypothyroidism Hypothyroidism type: unspecified Qualified Code(s): E03.9 - Hypothyroidism, unspecified (3) Schizoaffective disorder Schizoaffective disorder type: bipolar Qualified Code(s): F25.0 - Schizoaffective disorder, bipolar type
[2019-12-28] MEDS ORDERED: MAGNESIUM HYDROXIDE SUSP 30 ML UDC PO PRN (00:44)
[2019-12-28] MEDS ORDERED: LEVALBUTEROL HCL 0.63 MG/3 ML NEB INH PRN (00:44)
[2019-12-28] MEDS ORDERED: DEXTROSE 50% 50 ML SYRINGE IV PRN (00:44)
[2019-12-28] MEDS ORDERED: CETIRIZINE HCL 10 MG TABLET PO PRN (00:44)
[2019-12-28] MEDS ORDERED: CARBOHYDRATES FOR HYPOGLYCEMIA PO PRN (00:44)
[2019-12-28] MEDS ORDERED: ACETAMINOPHEN 325 MG TAB PO PRN (00:44)
[2019-12-28] MEDS ORDERED: GLUCOSE 40% GEL 15 GM TUBE PO PRN (00:44)
[2019-12-28] MEDS ORDERED: ALUMINUM/MAGNESIUM SUSP 30 ML UDC PO PRN (00:44)
[2019-12-28] MEDS ORDERED: ONDANSETRON INJ 2 MG/ML 2 ML VIAL IV PRN (00:44)
[2019-12-28] MEDS ORDERED: METOCLOPRAMIDE HCL 10 MG TABLET PO PRN (00:44)
[2019-12-28] MEDS ORDERED: GLUCOSE 10 TABS/TUBE PO PRN (00:44)
[2019-12-28] MEDS ORDERED: haloperidoL 1 MG TAB PO PRN (00:44)
[2019-12-28] MEDS ORDERED: DIHYDROERGOTAMINE MESYLATE 1 MG/ML VIAL SQ PRN (00:44)
[2019-12-28] MEDS ORDERED: GLUCAGON FOR INJ 1 MG VIAL SQ PRN (00:44)
[2019-12-28] MEDS: APIXABAN 5 MG TABLET PO SCH ×2 (01:49→09:16)
[2019-12-28] MEDS: CEFEPIME 2,000 MG in SYRINGE 7.5 ML IV SCH ×2 (04:28→11:50)
[2019-12-28] MEDS: ACETAMINOPHEN 325 MG TAB PO PRN ×2 (04:48→11:48)
[2019-12-28] MEDS ORDERED: LEVOTHYROXINE SODIUM 100 MCG TABLET PO SCH (06:30)
[2019-12-28] MEDS ORDERED: FERROUS SULFATE 325 MG TAB PO SCH (09:00)
[2019-12-28] MEDS ORDERED: INSULIN GLARGINE SOLOSTAR 100 UNITS/ML 3 ML PEN SQ SCH (09:00)
[2019-12-28] MEDS ORDERED: MONTELUKAST SODIUM 10 MG TABLET PO SCH (09:00)
[2019-12-28] MEDS ORDERED: PANTOprazole 40 MG TAB PO SCH (09:00)
[2019-12-28] MEDS ORDERED: VENLAFAXINE HCL XR 150 MG CAPXR PO SCH (09:00)
[2019-12-28] MEDS ORDERED: LORATADINE 10 MG TAB PO SCH (09:00)
[2019-12-28] MEDS ORDERED: MAGNESIUM OXIDE 400 MG TAB PO SCH (09:00)
[2019-12-28] MEDS ORDERED: FLUTICASONE/VILANTEROL 100/25MCG 14 PUFFS/INHALER INH SCH (09:00)
[2019-12-28] MEDS ORDERED: VENLAFAXINE HCL XR 75 MG CAPXR PO SCH (09:00)
[2019-12-28] MEDS ORDERED: ATORVASTATIN 40 MG TAB PO SCH (09:00)
[2019-12-28] MEDS ORDERED: CYANOCOBALAMIN 500 MCG TABLET (VITAMIN B-12) PO SCH (09:00)
[2019-12-28] MEDS ORDERED: DOCUSATE SODIUM 100 MG CAP PO SCH (09:00)
[2019-12-28] MEDS: MEXILETINE HCL 150 MG CAPSULE PO SCH ×2 (09:16→13:44)
[2019-12-28] MEDS: QUETIAPINE FUMARATE 25 MG TABLET PO SCH ×2 (09:17→13:45)
[2019-12-28] MEDS: HYOSCYAMINE SULFATE 0.125 MG TAB PO SCH ×3 (09:19→17:34)
[2019-12-28] MEDS: CYPROHEPTADINE HCL 4 MG TAB PO SCH ×2 (09:21→14:04)
[2019-12-28] MEDS: INSULIN ASPART 100 UNITS/ML 3 ML PEN SC SCH ×3 (09:23→17:36)
--- NOTE | 2019-12-28 09:42 | Hospitalist Progress Note ---
Date of Service December 28, 2019 Assessment & Plan (1) Urinary tract infection: Patient is a 34yo female with an indwelling Meade catheter, recurrent UTI with MDR organisms (including MRSA and Pseudomonas), DM2, neurogenic bladder, history of osteomyelitis, pressure ulcer of ischium stage II, hydrocephalus, spina bifida, mixed hyperlipidemia, obesity, chronic migraine without aura, bipolar 1 disorder, and sleep apnea who presented to the ED with burning with urination, abdominal tenderness, and bilateral flank pain. Patient was referred to our ED by Dr. Mckeon (infectious disease) at [facility] in [place] for treatment of MDR Klebsiella UTI. 1. UTI -c/w cefepime q8hr (as specified by Dr. Mckeon as noted above) -acetaminophen 500-1000mg PO -social work nurse/case management to help arrange for outpatient IV antibiotics 2. Type 2 DM -insulin glargine 20u SQ daily -c/w se -fingersticks qac and qhs -check HbA1c 3. Pressure ulcer of ischium -per admission H&P, patient reports this area periodically opens up in her right pelvis but is not presently a concern 4. Neurogenic bladder -c/w hyoscyamine sulfate 0.125mg PO tid 5. Hyperlipidemia -c/w atorvastatin 40mg PO qd 6. Bipolar 1 disorder, anorexia, bulimia -c/w brexpiprazole 4mg PO qAM -c/w haloperidol 2mg PO bid prn -c/w quetiapine 200mg PO qhs -c/w quetiapine 12.5mg PO bid 7. Hypothyroidism -synthroid 100mcg PO qd 8. History of PE -c/w Eliquis 5mg PO bid 9. Migraines without aura -c/w dihydroergotamine 10. Chronic constipation -c/w docusate sodium 100mg PO qAM -c/w magnesium oxide 400mg PO q2d -c/w miralax 17g PO tid PRN Dispo: inpatient pending coordination of outpatient IV antibiotic administration FENGI: fluids in antibiotic IV Code status: full code DVT prophylaxis: Eliquis 5mg PO bid (2) Schizoaffective disorder: (3) History of pulmonary embolism: (4) Abdominal pain, suprapubic: (5) Indwelling Meade catheter present: (6) Back pain: (7) Nausea: (8) Urinary pain: (9) Infection with multi-drug resistant microorganisms: (10) Frequent urinary tract infections: (11) Pressure ulcer of ischium, stage 2: (12) Hydrocephalus: (13) Eating disorder: (14) Spina bifida: (15) Mixed hyperlipidemia: (16) Obesity: (17) Stage II pressure ulcer of right hip: (18) Poor venous access: (19) Neurogenic bladder: Admission and Anticipated Discharge Date Admission Date: December 27, 2019 Subjective Patient was seen at bedside this morning. She reports abdominal and flank tenderness which she notes is "the exact same" as her symptoms during past UTI episodes. Patient also endorses feeling fatigued, and "not great" overall, and reports a mild headache, but is pleasant, cooperative, and optimistic regarding her treatment. Patient endorses constipation that is unchanged from her baseline. Patient had no concerns or questions. Review of Systems Constitutional: + sweats; no fever and no chills Respiratory: no cough, no chest congestion and no wheezing Cardiovascular: no chest pain, no palpitations, no syncope and no calf pain Physical Exam Constitutional: + obese; no acute distress and not ill appearing Respiratory: normal respiratory effort; no labored breathing Auscultation: lungs clear to auscultation bilaterally; no crackles, no rales and no wheezes Cardiovascular: Rate/Rhythm: regular rate and regular rhythm Heart Sounds: no murmur Gastrointestinal (Abdomen): Inspection/Auscultation: normal bowel sounds Percussion/Palpation: + abdomen tender (diffuse moderate tenderness in all four quadrants) Psychiatric: A+Ox3, euthymic affect Results & Data Results & Data ([facility]) Vital Signs (Past 12 Hours) Vital Signs Temp Pulse Pulse Resp BP BP Pulse Ox 12/28/19 07:25 36.4 C L 78 18 110/63 98 12/28/19 03:31 36.7 C 87 20 137/83 97 12/28/19 00:44 36.7 C 105 H 16 117/77 96 12/27/19 23:54 87 20 137/83 97 12/27/19 22:52 78 18 138/80 99 (1) Pressure ulcer of ischium, stage 2 Laterality: right Qualified Code(s): L89.312 - Pressure ulcer of right buttock, stage 2 (2) Back pain Back pain laterality: bilateral Back pain location: low back pain Chronicity: acute Sciatica presence: without sciatica Qualified Code(s): M54.5 - Low back pain (3) Schizoaffective disorder Schizoaffective disorder type: bipolar Qualified Code(s): F25.0 - Schizoaffective disorder, bipolar type
[2019-12-28] MEDS ORDERED: PRENATAL VITAMIN 1 TAB PO SCH (11:30)
[2019-12-28 13:21] LABS: Estimated Average Glucose 111 mg/dl; Hemoglobin A1C 5.5 % (4.5-5.6)
[2019-12-28] MEDS ORDERED: MICONAZOLE NITRATE POWDER 43 GM EXT PRN (14:59)
--- NOTE | 2019-12-28 17:38 | Discharge Summary ---
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 [facility] treatment of MDR Klebsiella UTI, and specifically requested cefepime every 8 hour dosing, with plans to arrange and coordinate for outpatient IV antibiotic therapy. Admission Exam Per Admitting Provider The patient is awake, alert and oriented 3, well developed and well nourished, normocephalic and atraumatic, sitting upright in wheelchair and in no acute distress. HEENT--PERRL, EOMI, mucous membranes and oropharynx normal. Neck--supple. No JVD. No bruits. Thyroid normal, trachea midline, no adenopathy. Heart--normal S1 and S2. No murmurs, rubs or gallops. Lungs--clear bilaterally, no respiratory distress, no accessory muscle use. Abdomen--normal bowel sounds and soft. Nontender. Nondistended. Extremities--no cyanosis or clubbing. No edema. Dermatologic--normal skin turgor, normal color, no abnormal lymph nodes, no rash. Neurologic--cranial nerves II through XII grossly intact. Rheumatologic--limited exam Psychiatric--normal affect. Principal Diagnosis Multidrug-resistant Klebsiella UTI Discharge Exam Constitutional + obese; no acute distress and not ill appearing Respiratory normal respiratory effort; no labored breathing Auscultation: lungs clear to auscultation bilaterally; no crackles, no rales and no wheezes Cardiovascular Rate/Rhythm: regular rate and regular rhythm Heart Sounds: no murmur Gastrointestinal (Abdomen) Inspection/Auscultation: normal bowel sounds Percussion/Palpation: + abdomen tender (diffuse moderate tenderness in all four quadrants) Psychiatric A+Ox3, euthymic affect Discharge Data Allergies Allergy/AdvReac Type Severity Reaction Status Date / Time chlorhexidine Allergy Severe blisters Verified 12/19/19 11:54 adhesive Allergy Intermediate TAPE- HIVES Verified 12/19/19 11:54 ceftriaxone Allergy Intermediate rash, Has Verified 12/19/19 11:54 tolerated cefepime and Zerbaxa ciprofloxacin Allergy Intermediate hives Verified 12/19/19 11:54 clindamycin Allergy Intermediate Redness/Itc Verified 12/19/19 11:54 hiness imipenem Allergy Intermediate PT REPORTS Verified 12/19/19 11:54 ITCHING levofloxacin Allergy Intermediate rash,HEARD Verified 12/19/19 11:54 VOICES linezolid Allergy Intermediate rash Verified 12/19/19 11:54 nitrofurantoin Allergy Intermediate rash and Verified 12/19/19 11:54 hives trimethoprim Allergy Intermediate Hives Verified 12/19/19 11:54 vancomycin Allergy Intermediate rash Verified 12/19/19 11:54 amikacin Allergy Unknown PER DR Verified 12/19/19 11:54 ROBINS,RXN WAS TO ZOSYN NOT AMKrash;hives Bactrim Allergy Unknown Hives Verified 01/11/18 17:31 onabotulinumtoxinA Allergy Unknown Rash/swelling Verified 12/19/19 11:54 [From Botox] at injection site sulfamethoxazole Allergy Unknown Hives Verified 12/19/19 11:54 buspirone AdvReac Severe HALLUCINATI Verified 12/19/19 11:54 ONS piperacillin AdvReac Intermediate SEVERE Verified 12/19/19 11:54 RASH, HIVES tazobactam AdvReac Intermediate SEVERE Verified 12/19/19 11:54 RASH, HIVES tobramycin AdvReac Mild Hives Verified 12/19/19 11:54 latex AdvReac Rash Verified 12/19/19 11:54 Consultations 12/27/19 21:55 ED Decision to Admit Stat 12/28/19 00:44 Consult Case Management - Discharge Planning Routine 12/28/19 08:58 Consult Case Management - Discharge Planning Routine Hospital Course (1) Urinary tract infection: Patient is a 34yo female with an indwelling Meade catheter, recurrent UTI with MDR organisms (including MRSA and Pseudomonas), DM2, neurogenic bladder, history of osteomyelitis, pressure ulcer of ischium stage II, hydrocephalus, spina bifida, mixed hyperlipidemia, obesity, chronic migraine without aura, bipolar 1 disorder, and sleep apnea who presented to the ED with burning with urination, abdominal tenderness, and bilateral flank pain. Patient was referred to our ED by Dr. Mckeon (infectious disease) at [facility] in [place] for treatment of MDR Klebsiella UTI. UTI Patient was admitted for MDR Klebsiella UTI at the request of her infectious disease specialist, Dr. Mckeon, of [facility] in [place]. Per his request, she was treated with IV cefepime in hospital until case management was able to arrange for the patient to receive IV cefepime at home through her PICC line. This was arranged on hospital day 2 and patient was discharged with the antibiotics as described above. Patient was hemodynamically stable throughout the her hospital stay. Patient was maintained on her home meds for the management of her Type 2 DM, neurogenic bladder, hyperlipidemai, bipolar 1 disorder, hypothyroidism, history of PE, migraines, and chronic constipation, none of which became a concern during her hospital stay. (2) Schizoaffective disorder: (3) History of pulmonary embolism: (4) Abdominal pain, suprapubic: (5) Indwelling Meade catheter present: (6) Back pain: (7) Nausea: (8) Urinary pain: (9) Infection with multi-drug resistant microorganisms: (10) Frequent urinary tract infections: (11) Pressure ulcer of ischium, stage 2: (12) Hydrocephalus: (13) Eating disorder: (14) Spina bifida: (15) Mixed hyperlipidemia: (16) Obesity: (17) Stage II pressure ulcer of right hip: (18) Poor venous access: (19) Neurogenic bladder: Total Time Total Time Spent Total Time Spent (In Minutes): <30 Discharge Plan Discharge Items Patient Disposition: Home - Home Health Services Reason For Visit: KLEBSIELLA MDR UTI Discharge Diagnosis: Multi-drug resistant Klebsiella UTI Activity: Resume your previous activity Non-emergency contact: Primary Care Provider Call non-emergency contact if: you have any medication questions, your symptoms worsen, your pain is worsening and your pain is unusual for you Follow-up/Referrals: Gela Boone MD [Primary Care Provider] - Diet: Regular Addtl Attending Provider Instructions: You were admitted to [facility] for a UTI, at the recommendation of your infectious disease doctor from [facility]. You were given IV fluids and IV antibiotics to help you fight your infection. Your infectious disease specialist is confident your infection can be treated at home with IV antibiotics administered through your PICC line. We have sent the antibiotics to the pharmacy, which will deliver them to you tonight. We have arranged for a nurse to be present at that time to ensure the proper setup so that you can get the IV antibiotics that you need. Please contact your PCP with any general medical questions, and if you have any worsening or concerning new symptoms, please call 911 or go to the nearest ED immediately. Pending Studies at Discharge: No Stand-Alone Forms: My [facility], Smoking Cessation Medications and DC Order Prescriptions: Continued cyanocobalamin (vitamin B-12) 1,000 mcg capsule 1,000 mcg PO Q2D RF: 0 ferrous sulfate [Iron (ferrous sulfate)] 325 mg (65 mg iron) tablet 325 mg PO QAM RF: 0 docusate sodium [Colace] 100 mg capsule 100 mg PO QAM RF: 0 fluticasone propion-salmeterol [Advair Diskus] 500-50 mcg/dose blister with device 1 inh INHALATION BID Qty: 60 RF: 5 levalbuterol HCl [Xopenex] 0.63 mg/3 mL solution for nebulization 0.63 mg INHALATION Q6H PRN (Reason: Shortness Of Breath) Qty: 36 RF: 1 albuterol sulfate [ProAir HFA] 90 mcg/actuation HFA aerosol inhaler 2 puffs INH Q6 PRN (Reason: Shortness Of Breath Or Wheezing) Qty: 8 RF: 3 ondansetron 8 mg tablet,disintegrating 8 mg PO Q6H PRN (Reason: Nausea) Qty: 120 RF: 11 riboflavin (vitamin B2) 400 mg tablet 400 mg PO QDD RF: 0 Lantus Solostar U-100 Insulin 100 unit/mL (3 mL) insulin pen 20 units SQ DAILY Qty: 15 RF: 3 mexiletine 150 mg capsule 300 mg PO TID RF: 0 metoclopramide HCl [Reglan] 10 mg tablet 10 mg PO Q8 MDD 2x/wk PRN (Reason: acute headaches) RF: 0 polyethylene glycol 3350 [Miralax] 17 gram/dose Powder 17 g PO TID PRN (Reason: Constipation) RF: 0 magnesium 200 mg tablet 400 mg PO Q2D RF: 0 dihydroergotamine [D.H.E.45] 1 mg/mL Solution 1 mg subcut UD PRN (Reason: Headache) RF: 0 venlafaxine [Effexor XR] 75 mg capsule,extended release 24hr 75 mg PO QAM RF: 0 quetiapine [Seroquel] 100 mg tablet 200 mg PO HS RF: 0 haloperidol 2 mg tablet 2 mg PO BID PRN (Reason: Headache) RF: 0 trazodone 150 mg tablet 300 mg PO HS RF: 0 levothyroxine [Synthroid] 100 mcg tablet 100 mcg PO DAILYBB RF: 0 Ozempic 0.25 mg or 0.5 mg(2 mg/1.5 mL) pen injector 1.25 mg SUBCUT WK RF: 0 atorvastatin 40 mg tablet 40 mg PO DAILY RF: 0 cetirizine 10 mg tablet 10 mg PO DAILY PRN (Reason: Allergy Symptoms) RF: 0 Eliquis 5 mg tablet 5 mg PO BID RF: 0 cyproheptadine 4 mg tablet 2 mg PO TID RF: 0 Rexulti 4 mg tablet 4 mg PO QAM RF: 0 hydroxyzine HCl 25 mg tablet 25 - 50 mg PO QID PRN (Reason: Anxiety) RF: 0 famotidine [Pepcid] 40 mg tablet 40 mg PO HS RF: 0 loratadine [Claritin] 10 mg Tablet 10 mg PO QAM RF: 0 quetiapine [Seroquel] 25 mg tablet 12.5 mg PO .BID/UD RF: 0 pantoprazole [Protonix] 40 mg tablet,delayed release (DR/EC) 40 mg PO BID RF: 0 venlafaxine 150 mg Tablet Extended Release 24hr 150 mg PO QAM RF: 0 montelukast [Singulair] 10 mg Tablet 10 mg PO QAM RF: 0 PNV cmb#95-ferrous fumarate-FA [] 28 mg iron- 800 mcg Tablet 1 tab PO QDL RF: 0 hyoscyamine sulfate [Levsin] 0.125 mg tablet 0.125 mg PO TIDM RF: 0 lidocaine [Lidoderm] 5 % adhesive patch,medicated 1 patch TOP DAILY PRN (Reason: pain) RF: 0 acetaminophen [Tylenol Extra Strength] 500 mg Tablet 500 - 1,000 mg PO UD PRN (Reason: Pain) RF: 0 Discharge Orders: Discharge Order (Routine); Ordered 12/28/19 Ordered By: Earl Carcamo Admission Data Admit Date/Time: 12/27/19 23:11 Attending Provider: Paul Cabrales Admit Provider: Nav Galvan Primary Care Provider: Gela Boone Other Providers: Nav Galvan ; Earl Carcamo ; [place] Other Interventions: Discharge Summary Assessment (RN) Last Done: 12/28/19 16:16 Supervising Physician Co-Signing Physician Notes I personally examined the patient and verified all canales points of history and exa m, discussed case, and agree with decision making with Dr Carcamo. feeling good very much wants to go home later informed that IV abx were set up for home vitals noted nad heent nc at mmm breathing unlabored no accessory muscles good effort skin no pallor MDR UTI - requiring IV abx. sent to ER to facilitate treatment - started on cefepime at ID recs. fortunately set up for home. current urine culture growing 2 different gram negative rods but she is not septic/feels better/is clinically well - so OK to go home pending final ID and S of these - if abx need modified ID physician will be able to do so. set up presumptive 10 days - likely will not need to be this long, but allows for more flexibility. Resident Activity Tracking Resident Involvement: Resident Care Provided Care Provided: Adult Hospital Medicine
--- NOTE | 2019-12-28 18:33 | Billing Data ---
Date of Service December 28, 2019 Coding Level of Care Code D/C Day Management <30 mins
[2019-12-28] MEDS ORDERED: QUETIAPINE FUMARATE 100 MG TABLET PO SCH (21:00)
[2019-12-28] MEDS ORDERED: TRAZODONE HCL 100 MG TAB PO SCH (21:00)
[2019-12-28] MEDS ORDERED: FAMOTIDINE 40 MG TABLET PO SCH (21:00)
== END 2019-12-28 17:35 | disposition home health service (06) ==
LOC: ED 17:15 → INTOOBSV 23:11 → 2W 23:11 → SUATTDRO 23:11 → 2W 23:54

== ENCOUNTER 2020-06-24 12:49 | Observation (INO) ==
[2020-06-24] MEDS ORDERED: SODIUM CHLORIDE 0.9% 1000ML 1,000 ML IV ONE (13:17)
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
--- NOTE | 2020-06-24 13:46 | XRay Report ---
XR chest 1V portable HISTORY: SEPSIS COMPARISON: Chest 06/14/2020. FINDINGS: There are low lung volumes. No pneumothorax. No pleural effusions. The heart remains border line enlarged. There is mild central pulmonary vascular congestion without overt edema. Left basilar linear densities have improved and favor resolving atelectasis. No new focal lung consolidations. Rig ht jugular Port-A-Cath terminates at the right atrium. This remains unchanged. Right-sided ventriculo pleural catheter terminates at the right lung base. IMPRESSION: 1. Satisfactory support line placement. 2. Cardiomegaly with mild central pulmonary vascular congestion without overt edema. ACT 112: Negative or not required by law. Electronically signed by: Edward Dixon M.D. 06/24/2020 1:44 PM
[2020-06-24 14:23] LABS: Basophils # (auto) 0.04 K/uL (0-0.2); Basophils % (auto) 0.5 %; Eosinophils # (auto) 0.18 K/uL (0-0.5); Eosinophils % (auto) 2.2 %; Immature Granulocytes # (auto) 0.03 K/uL (0.00-0.02); Immature Granulocytes % (auto) 0.4 %; Lymphocytes # (auto) 1.84 K/uL (1.2-3.4); Lymphocytes % (auto) 22.3 %; Mean Corpuscular Hemoglobin 27.6 pg (25-34); Mean Corpuscular Hgb Conc 30.8 g/dL (32-36); Mean Corpuscular Volume 89.9 fL (80-100); Mean Platelet Volume 10.7 fL (7.4-10.4); Monocytes % (auto) 8.5 %; Neutrophils # (auto) 5.47 K/uL (1.4-6.5); Neutrophils % (auto) 66.1 %; Platelet Count 213 K/uL (130-400); RDW Coefficient of Variation 16.7 % (11.5-14.5); RDW Standard Deviation 55.1 fL (36.4-46.3); Red Blood Count 4.34 M/uL (4.2-5.4); White Blood Count 8.26 K/uL (4.8-10.8)
[2020-06-24 14:32] LABS: INR 1.3 (0.9-1.1); Partial Thromboplastin Ratio 1.1; Partial Thromboplastin Time 30.3 Seconds (21.0-31.0); Prothrombin Time 13.5 Seconds (9.0-12.0)
[2020-06-24 14:43] LABS: Alanine Aminotransferase 23 U/L (12-78); Albumin Level 2.7 gm/dl (3.4-5.0); Aspartate Aminotransferase 7 U/L (15-37); BUN Creatinine Ratio 20.8 (10-20); Blood Urea Nitrogen 13 mg/dl (7-18); Calcium 9.1 mg/dl (8.5-10.1); Carbon Dioxide 28 mmol/L (21-32); Chloride 103 mmol/L (98-107); Est GFR (African American) 136.6; Est GFR (Non-African American) 117.9; Glucose 147 mg/dl (70-99); Magnesium 1.9 mg/dl (1.8-2.4); Potassium 4.1 mmol/L (3.5-5.1); Sodium 138 mmol/L (136-145)
[2020-06-24 14:47] LABS: Albumin Globulin Ratio 0.6 (0.9-2); Alkaline Phosphatase 117 U/L (45-117); Bilirubin,Total 0.3 mg/dl (0.2-1); Globulin 4.4 gm/dl (2.5-4.0); Total Protein 7.1 gm/dl (6.4-8.2); Troponin I < 0.015 ng/ml (0-0.045)
[2020-06-24] MEDS ORDERED: IOVERSOL 100ml IV ONE (15:11)
[2020-06-24 15:16] LABS: Appearance Urine Clear (Clear); Bacteria Urine Automated 2+ (Negative); Bilirubin Urine Negative (Negative); Blood Urine Negative (Negative); Cast Urine Automated 0 /lpf (0-5); Color Urine Dark Yellow; Epithelial Cell Urine Auto 20-30 /lpf (0-5); Glucose Urine UA Negative (Negative); Ketones Urine Negative (Negative); Leukocyte Esterase Urine 3+ (Negative); Nitrite Urine Positive (Negative); Protein Urine Negative (Negative); RBC Urine Automated 0-4 /hpf (0-4); Specific Gravity Urine 1.009 (1.000-1.030); Urobilinogen Urine Negative (Negative); WBC Urine Automated >30 /hpf (0-5); pH Urine 7.5 (4.5-7.5)
--- NOTE | 2020-06-24 15:28 | CT Scan Report ---
CT abd pelvis IV con only CLINICAL HISTORY: Diffuse abdominal pain COMPARISON STUDY: August 22, 2019 TECHNIQUE: The patient was scanned in a dynamic helical fashion during intravenous administration of 95 cc of Optiray 320 A dose lowering technique was utilized adhering to the principles of ALARA. CT DOSE: 1431.97 mGy.cm FINDINGS: Lower chest: There is a right pleural effusion with a right pleural catheter present, likely represen ting a ventricular pleural shunt.. There are dependent airspace opacities within both lower lobes, li david atelectatic. Liver: The contrast-enhanced liver is normal in size, contour, and attenuation. There is no intrahepa tic biliary ductal dilatation. The hepatic veins and portal veins are patent. Gallbladder: Surgically absent Spleen: Normal in size and attenuation. Pancreas: Unremarkable. Adrenal glands: Unremarkable. Kidneys: There are areas of left renal cortical scarring. There is mild dilatation of the left renal pelvis. Bowel: There are no transition zones to indicate bowel obstruction. There is no evidence of acute div erticulitis. The appendix appears normal. There is a moderate colonic fecal load. Peritoneum: There is no intraperitoneal free air or abdominal ascites. Vasculature: The abdominal aorta is normal in course and caliber. Adenopathy: None. Pelvic viscera: There is a suprapubic bladder catheter. There is gas within the bladder likely iatrog enic. There is a 2 mm bladder calculus. There is mild bladder wall thickening. Is a 29 mm right ovari an follicle. Skeletal structures: There are dysmorphic hips and acetabula. There is spina bifida. There is a lumba r meningocele. IMPRESSION: 1. Right-sided pleural catheter likely representing a ventricular pleural shunt 2. Small right pleural effusion 3. Bibasilar parenchymal opacities likely atelectatic 4. No evidence of bowel obstruction. No evidence of free air 5. Normal appendix. No evidence of acute diverticulitis 6. Left renal cortical scarring and mild dilatation of the left renal pelvis. 7. Spina bifida with a lumbar meningocele 8. 2 mm bladder calculus 9. Dysmorphic hips and acetabula ACT 112: Negative or not required by law. Electronically signed by: Yair Morrison M.D. 06/24/2020 3:27 PM
[2020-06-24] MEDS ORDERED: CEFEPIME 2,000 MG/20 ML VIAL IV STA (15:31)
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
[2020-06-24] MEDS ORDERED: METOCLOPRAMIDE HCL 10 MG TABLET PO PRN (21:11)
[2020-06-24] MEDS ORDERED: CETIRIZINE HCL 10 MG TABLET PO PRN (21:11)
[2020-06-24] MEDS ORDERED: LEVALBUTEROL HCL 0.63 MG/3 ML NEB INH PRN (21:11)
[2020-06-24] MEDS ORDERED: ALBUTEROL HFA 8 GM INHALER INH PRN (21:11)
[2020-06-24] MEDS ORDERED: CYCLOBENZAPRINE HCL 5 MG TAB PO PRN (21:11)
[2020-06-24] MEDS ORDERED: POLYETHYLENE (MIRALAX) 17 GM PACK PO PRN (21:11)
[2020-06-24] MEDS ORDERED: CEFEPIME CONSULT ACTIVE PRN (21:11)
[2020-06-24] MEDS ORDERED: CEFEPIME 2,000 MG in SYRINGE 0 ML IV SCH (22:00)
[2020-06-24] MEDS ORDERED: HEPARIN 100 UNIT/ML 5ML FLUSH ONE (22:08)
[2020-06-24] MEDS: APIXABAN 5 MG TABLET PO SCH (22:10)
[2020-06-24] MEDS: CYPROHEPTADINE HCL 4 MG TAB PO SCH (22:11)
[2020-06-24] MEDS: FAMOTIDINE 40 MG TABLET PO SCH (22:11)
[2020-06-24] MEDS: MIRABEGRON ER 25 MG TAB PO SCH (22:11)
[2020-06-24] MEDS: ONDANSETRON 8MG OD TAB PO PRN (22:12)
[2020-06-24] MEDS: PANTOprazole 40 MG TAB PO SCH (22:12)
[2020-06-24] MEDS: traZODone HCL 100 MG TAB PO SCH (22:13)
[2020-06-24] MEDS: QUEtiapine FUMARATE 200 MG TAB PO SCH (22:13)
[2020-06-24] MEDS: FLUTICASONE/VILANTEROL 200/25MCG 14 PUFFS/INHALER INH SCH (22:14)
--- NOTE | 2020-06-25 05:58 | Electrocardiogram Report ---
Test Reason : Blood Pressure : / mmHG Vent. Rate : 089 BPM Atrial Rate : 089 BPM P-R Int : 142 ms QRS Dur : 086 ms QT Int : 346 ms P-R-T Axes : 040 051 045 degrees QTc Int : 420 ms Normal sinus rhythm Normal ECG When compared with ECG of 14-JUN-2020 18:16, Minimal criteria for Inferior infarct are no longer Present Confirmed by Paolo Reed ([id number]) on 06/25/2020 5:58:09 AM Referred By: REFERRED SELF Confirmed By:Paolo Reed
[2020-06-25] MEDS: QUEtiapine FUMARATE 25 MG TABLET PO SCH ×2 (06:40→13:20)
[2020-06-25] MEDS: LEVOTHYROXINE SODIUM 100 MCG TABLET PO SCH (06:41)
--- NOTE | 2020-06-25 08:39 | Hospitalist Progress Note ---
Date of Service June 25, 2020 Assessment & Plan (1) Acute abdominal pain: Connie Chairez is a 35 year old female with a history of spina bifida, hydrocephalus s/p STAPLE FIBER WASHER Shunt, Asthma, Bipolar Disorder, Hypothyroidism, Sleep Apnea, PTSD, Type 2 Diabetes Mellitus, Prior Pulmonary Embolism, Bilateral BKA's, Nephrolithiasis, Neurogenic Bladder s/p Indwelling Suprapubic Catheter, and Recurrent UTI's (with MDR Klebsiella) who presents to [facility] w/ RUQ abdominal pain and R flank pain. + associated chills and 2 episodes of mild emesis of foodstuffs. RUQ abdominal pain - treating as complicated UTI for now - patient has chronic suprapubic cath, but does complain of urinary complaints - per [facility] ID, would be simple cystitis (and not pyelo) if urinary system is source of patient's abd pain, otherwise consider GI etiologies - lower suspicion for pyleo given CT abd result - negative procalc, no leukocytosis - elevated lactate, resolved 06/24/20 1358 3.0H. -> 06/24/20 1656 0.8 - Obtain UA, C&S results from [facility], obtained on 06/22/20 - 06/24/20 uc pending. + gram neg bacilli. BC pending - 05/02/20 UC pseudomonas, morganella - 03/24 klebsiella resistant to nitrofurantoin - empiric IV Cefepime 2,000 mg daily. - prn tylenol 650mg PO q6hprn for pain. will not add morphine at this time 06/25/20 [facility] ID consult recommendations (paraphrased): continue IV cefepime for now, awaiting 06/22/20 [facility] UC sensitivities. Anticipate no more than 5 days of abx therapy. The symptoms and lab findings are not typical for UTI and no clinical evidence of pyelo. It is possible the GI symptoms are not related to the urinary findings, which may be urinary colonization in setting of suprapubic cath. diabetes mellitus - 04/16/20 A1c 6.0 - continue home lantus 12u - patient also takes Ozempic every Monday Spina bifida - With neurogenic bladder s/p suprapubic catheter. bilateral above knee amputations - bilateral knee stumps, stable, see attending documentation - ongoing wound care Elevated lactic acid level - as per above, resolved Suprapubic catheter, neurogenic bladder - chronic, site appears intact and nonerythematous. 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 venlafaxine asthma - Incruse Ellipta, Breo Ellipta. albuterol inh and Xopenex neb prn FEN/GI: regular diet. no mIVF code: full dvt ppx: eliquis 5 bid dispo: med/surg, possible dispo 06/26/20, pending urine culture sensitivities which would determine appropriate IV abx regimen to dispo on Present on Admission?: Yes (2) Complicated UTI (urinary tract infection): (3) Spina bifida: (4) Elevated lactic acid level: (5) Suprapubic catheter: (6) STAPLE FIBER WASHER (ventriculoperitoneal) shunt status: (7) History of pulmonary embolism: (8) Hydrocephalus: (9) Metabolic syndrome: (10) Hypothyroidism: (11) Type 2 diabetes mellitus: (12) Migraines: (13) Asthma: Admission and Anticipated Discharge Date Admission Date: June 24, 2020 Supervising Physician Co-Signing Physician Notes I personally examined the patient and verified all canales points of history and exam, discussed case, and agree with decision making with Dr Ramirez. bladder pain and nausea feeling better than before - still present but improving vitals noted nad heent nc at mmm breathing unlabored no accessory muscles good effort skin no rashes no pallor or icterus probable R pyelonephritis / complicated UTI in the setting of suprapubic catheter - cefepime for now pending ID input and final cultures wounds - stage 3 pressure ulcer R distal stump, R proximal stump, and stage 2 pressure ulcer L stump - all recently noted by wound clinic and present on admission - ongoing wound care/healing otherwise as above Subjective 9/10 constant diffuse abd pain, radiates to R flank/back. Symptom onset 06/23/20, w/ nausea, vomiting (x2 episodes foodstuff), urinary frequency, (and some discomfort at suprapubic cath (changed a few days ago) during urination), and headache since 2 days ago. Took 2 days of Macrobid. No other symptoms/complaints Review of Systems Review of Systems: Constitutional: Denies fever. +chills Cardiovascular: Denies chest pain Respiratory: Denies shortness of breath Gastrointestinal: Denies diarrhea. See HPI, abd pain. : see HPI Musculoskeletal: Denies weakness, muscle aches/pain, joint aches/pain Neurological: Denies numbness, tingling, focal weakness Physical Exam Physical Exam: General: Grossly A&O. NAD. Cooperative. Morbidly obese habitus. HEENT: Atraumatic, normocephalic. Pulm: CTAB. -wheezes, -rales, -rhonchi. No respiratory distress. Cardiac: RRR, -mrg. R upper chest wall port site appears intact and nonerythematous. Abdominal: Soft, RUQ ttp. + R CVA tenderness. No suprapubic ttp. Suprapubic catheter site nonerythematous. Draining orange urine (takes pyridium) Results & Data Results & Data ([facility]) Vital Signs (Past 12 Hours) Vital Signs Temp Pulse Resp BP Pulse Ox 06/25/20 07:13 36.4 C L 83 16 119/69 97 06/24/20 23:11 36.5 C 90 18 109/74 97 Resident Activity Tracking Resident Involvement: Resident Care Provided Care Provided: Adult Hospital Medicine (1) Migraines Intractability: not intractable Migraine type: unspecified Status migrainosus presence: without status migrainosus Qualified Code(s): G43.909 - Migraine, unspecified, not intractable, without status migrainosus (2) Hypothyroidism Hypothyroidism type: unspecified Qualified Code(s): E03.9 - Hypothyroidism, unspecified (3) Asthma Asthma complication type: uncomplicated Asthma persistence: intermittent Ast hma severity: mild Qualified Code(s): J45.20 - Mild intermittent asthma, uncomplicated
[2020-06-25] MEDS: FERROUS SULFATE 325 MG TAB PO SCH (09:04)
[2020-06-25] MEDS: DOCUSATE SODIUM 100 MG CAP PO SCH (09:04)
[2020-06-25] MEDS: APIXABAN 5 MG TABLET PO SCH ×2 (09:04→21:47)
[2020-06-25] MEDS: HYOSCYAMINE SULFATE 0.125 MG TAB PO SCH ×3 (09:05→17:35)
[2020-06-25] MEDS: CYANOCOBALAMIN 500 MCG TABLET (VITAMIN B-12) PO SCH (09:05)
[2020-06-25] MEDS: PANTOprazole 40 MG TAB PO SCH ×2 (09:06→21:47)
[2020-06-25] MEDS: LORATADINE 10 MG TAB PO SCH (09:06)
[2020-06-25] MEDS: VENLAFAXINE HCL XR 150 MG CAPXR PO SCH (09:07)
[2020-06-25] MEDS: MAGNESIUM OXIDE 400 MG TAB PO SCH (09:07)
[2020-06-25] MEDS: VENLAFAXINE HCL XR 75 MG CAPXR PO SCH (09:07)
[2020-06-25] MEDS: UMECLIDINIUM BROMIDE 62.5MCG/BLISTER 7 PUFFS/INHALER INH SCH (09:08)
[2020-06-25] MEDS: FLUTICASONE/VILANTEROL 200/25MCG 14 PUFFS/INHALER INH SCH ×2 (09:08→21:48)
[2020-06-25] MEDS: CYPROHEPTADINE HCL 4 MG TAB PO SCH ×3 (09:08→21:47)
[2020-06-25] MEDS: CEFEPIME 2,000 MG in SYRINGE 0 ML IV SCH ×2 (11:10→17:35)
[2020-06-25] MEDS: ONDANSETRON 8MG OD TAB PO PRN ×2 (12:46→22:43)
[2020-06-25] MEDS: INSULIN GLARGINE SOLOSTAR 100 UNITS/ML 3 ML PEN SQ SCH (13:19)
[2020-06-25] MEDS: ACETAMINOPHEN 325 MG TAB PO PRN ×2 (14:05→21:47)
[2020-06-25] MEDS ORDERED: POLYETHYLENE (MIRALAX) 17 GM PACK PO STA (16:23)
[2020-06-25] MEDS ORDERED: NON-FORMULARY MEDICATION (Riboflavin (Vitamin B2) 400 mg tablet) PO SCH (16:30)
[2020-06-25] MEDS: ATORVASTATIN 40 MG TAB PO SCH (17:34)
[2020-06-25] MEDS: HEPARIN 100 UNIT/ML 5ML FLUSH FLUSH PRN (17:36)
--- NOTE | 2020-06-25 18:29 | Billing Data ---
Date of Service June 25, 2020 Coding Level of Care Code 13609 Subseq Hosp Care Lvl 3
[2020-06-25] MEDS ORDERED: MICONAZOLE NITRATE POWDER 43 GM EXT PRN (20:40)
[2020-06-25] MEDS: MIRABEGRON ER 25 MG TAB PO SCH (21:46)
[2020-06-25] MEDS: traZODone HCL 100 MG TAB PO SCH (21:46)
[2020-06-25] MEDS: FAMOTIDINE 40 MG TABLET PO SCH (21:46)
[2020-06-25] MEDS: QUEtiapine FUMARATE 200 MG TAB PO SCH (21:46)
[2020-06-25] MEDS: POLYETHYLENE (MIRALAX) 17 GM PACK PO SCH (21:48)
[2020-06-26] MEDS: HEPARIN 100 UNIT/ML 5ML FLUSH FLUSH PRN ×4 (01:10→18:43)
[2020-06-26] MEDS: CEFEPIME 2,000 MG in SYRINGE 0 ML IV SCH ×3 (01:10→18:43)
[2020-06-26] MEDS: LEVOTHYROXINE SODIUM 100 MCG TABLET PO SCH (06:06)
[2020-06-26] MEDS: QUEtiapine FUMARATE 25 MG TABLET PO SCH ×2 (06:06→13:25)
[2020-06-26 06:29] LABS: Basophils # (auto) 0.04 K/uL (0-0.2); Basophils % (auto) 0.5 %; Eosinophils # (auto) 0.19 K/uL (0-0.5); Eosinophils % (auto) 2.2 %; Hematocrit (blood only) 38.3 % (37-47); Hemoglobin 11.9 g/dL (12.0-16.0); Immature Granulocytes # (auto) 0.03 K/uL (0.00-0.02); Immature Granulocytes % (auto) 0.4 %; Lymphocytes # (auto) 2.04 K/uL (1.2-3.4); Lymphocytes % (auto) 23.9 %; Mean Corpuscular Hemoglobin 27.9 pg (25-34); Mean Corpuscular Hgb Conc 31.1 g/dL (32-36); Mean Corpuscular Volume 89.7 fL (80-100); Mean Platelet Volume 10.6 fL (7.4-10.4); Monocytes # (auto) 0.69 K/uL (0.11-0.59); Monocytes % (auto) 8.1 %; Neutrophils # (auto) 5.56 K/uL (1.4-6.5); Neutrophils % (auto) 64.9 %; Platelet Count 206 K/uL (130-400); RDW Coefficient of Variation 16.8 % (11.5-14.5); RDW Standard Deviation 54.7 fL (36.4-46.3); Red Blood Count 4.27 M/uL (4.2-5.4); White Blood Count 8.55 K/uL (4.8-10.8)
--- NOTE | 2020-06-26 06:47 | Hospitalist Progress Note ---
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 + associated chills and 2 episodes of mild emesis of foodstuffs. Upper abdominal pain - initially presented as RUQ pain, as of 06/26/20, more epigastric / LUQ. - evolving location most consistent w/ constipation (stool burden noted on CT) - continue TID miralax, BID PPI, BID h2 yolanda. - treating as complicated UTI for now - patient has chronic suprapubic cath, but does complain of urinary complaints - per [facility] ID, would be simple cystitis (and not pyelo) if urinary system is source of patient's abd pain, otherwise consider GI etiologies - lower suspicion for pyleo given CT abd result - negative procalc, no leukocytosis - elevated lactate, resolved 06/24/20 1358 3.0H. -> 06/24/20 1656 0.8 - Obtain UA, C&S results from [facility], obtained on 06/22/20 - 06/24/20 uc pending. + gram neg bacilli. BC pending - 05/02/20 UC pseudomonas, morganella - 03/24 UC klebsiella resistant to nitrofurantoin - empiric IV Cefepime 2,000 mg daily. - prn tylenol 650mg PO q6hprn for pain. will not add morphine at this time 06/25/[address] [facility] ID consult recommendations (paraphrased): continue IV cefepime for now, awaiting 06/22/[address] [facility] UC sensitivities. Anticipate no more than 5 days of abx therapy. The symptoms and lab findings are not typical for UTI and no clinical evidence of pyelo. It is possible the GI symptoms are not related to the urinary findings, which may be urinary colonization in setting of suprapubic cath. diabetes mellitus - 04/16/20 A1c 6.0 - continue home lantus 12u - patient also takes Ozempic every Monday Spina bifida - With neurogenic bladder s/p suprapubic catheter. bilateral above knee amputations - bilateral knee stumps, stable, see attending documentation - ongoing wound care Elevated lactic acid level - as per above, resolved Suprapubic catheter, neurogenic bladder - chronic, site appears intact and nonerythematous. 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 venlafaxine asthma - Incruse Ellipta, Breo Ellipta. albuterol inh and Xopenex neb prn FEN/GI: regular diet. no mIVF code: full dvt ppx: eliquis 5 bid dispo: med/surg, possible dispo 06/26/20, pending urine culture sensitivities which would determine appropriate IV abx regimen to dispo on (2) Complicated UTI (urinary tract infection): (3) Spina bifida: (4) Elevated lactic acid level: (5) Suprapubic catheter: (6) PILOT MANAGER (ventriculoperitoneal) shunt status: (7) History of pulmonary embolism: (8) Hydrocephalus: (9) Metabolic syndrome: (10) Hypothyroidism: (11) Type 2 diabetes mellitus: (12) Migraines: (13) Asthma: Admission and Anticipated Discharge Date Admission Date: June 24, 2020 Supervising Physician Co-Signing Physician Notes I personally examined the patient and verified all canales points of history and exam, discussed case, and agree with decision making with Dr Ramirez. still abdominal pain and nausea. can't really eat. vitals noted nad heent nc at mmm breathing unlabored no accessory muscles good effort skin no rashes no pallor or icterus. abd soft mod distention mild diffuse tenderness no guarding no rebound no masses questionable complicated UTI in the setting of suprapubic catheter - cefepime for now - 5 days per ID. follow clinically abdominal pain - likely a combination of constipation and indigestion - miralax and PPI/H2/zofran wounds - stage 3 pressure ulcer R distal stump, R proximal stump, and stage 2 pressure ulcer L stump - all recently noted by wound clinic and present on admission - ongoing wound care/healing otherwise as above Subjective Complaining of pain, 9/10 at abdomen, epigastric and LUQ, worse at LUQ and worse w/ eating. No appetite. +nausea. No f/c, cp. Still has urinary symptoms, frequency and dysuria-type sensation. Review of Systems Review of Systems: Constitutional: Denies fever, chills Cardiovascular: Denies chest pain Respiratory: Denies shortness of breath Gastrointestinal: See HPI Genitourinary: See HPI Neurological: No numbness/tingling Physical Exam Physical Exam: General: Grossly A&O. NAD. Cooperative. HEENT: Atraumatic, normocephalic. Pulm: CTAB. -wheezes, -rales, -rhonchi. No respiratory distress. Cardiac: RRR, -mrg. Abdominal: Diffuse upper ttp, worse at epigastrium and LUQ. Msk: bilat AKA stumps intact Results & Data Results & Data ([facility]) Vital Signs (Past 12 Hours) Vital Signs Temp Pulse Resp BP Pulse Ox 06/26/20 00:01 36.6 C 96 H 18 105/68 91 (1) Migraines Intractability: not intractable Migraine type: unspecified Status mi grainosus presence: without status migrainosus Qualified Code(s): G43.909 - Migraine, unspecified, not intractable, without status migrainosus (2) Hypothyroidism Hypothyroidism type: unspecified Qualified Code(s): E03.9 - Hypothyroidism, unspecified (3) Asthma Asthma complication type: uncomplicated Asthma persistence: intermittent Asthma severity: mild Qualified Code(s): J45.20 - Mild intermittent asthma, uncomplicated
[2020-06-26 07:00] LABS: Albumin Level 2.6 gm/dl (3.4-5.0); BUN Creatinine Ratio 23.5 (10-20); Calcium 8.8 mg/dl (8.5-10.1); Creatinine Clr Calc Pharmacy 180.7 ml/min; Est GFR (African American) 145.5; Est GFR (Non-African American) 125.5; Potassium 3.4 mmol/L (3.5-5.1)
[2020-06-26 07:02] LABS: Albumin Globulin Ratio 0.6 (0.9-2); Bilirubin,Total 0.5 mg/dl (0.2-1); Globulin 4.2 gm/dl (2.5-4.0); Total Protein 6.8 gm/dl (6.4-8.2)
[2020-06-26] MEDS: FLUTICASONE/VILANTEROL 200/25MCG 14 PUFFS/INHALER INH SCH ×2 (08:35→21:00)
[2020-06-26] MEDS: UMECLIDINIUM BROMIDE 62.5MCG/BLISTER 7 PUFFS/INHALER INH SCH (08:35)
[2020-06-26] MEDS: POLYETHYLENE (MIRALAX) 17 GM PACK PO SCH ×3 (08:36→20:58)
[2020-06-26] MEDS: CYPROHEPTADINE HCL 4 MG TAB PO SCH ×3 (08:37→20:59)
[2020-06-26] MEDS: VENLAFAXINE HCL XR 75 MG CAPXR PO SCH (08:37)
[2020-06-26] MEDS: LORATADINE 10 MG TAB PO SCH (08:37)
[2020-06-26] MEDS: HYOSCYAMINE SULFATE 0.125 MG TAB PO SCH ×3 (08:37→16:38)
[2020-06-26] MEDS: APIXABAN 5 MG TABLET PO SCH ×2 (08:37→20:59)
[2020-06-26] MEDS: PANTOprazole 40 MG TAB PO SCH ×2 (08:37→20:59)
[2020-06-26] MEDS: FERROUS SULFATE 325 MG TAB PO SCH (08:37)
[2020-06-26] MEDS: DOCUSATE SODIUM 100 MG CAP PO SCH (08:37)
[2020-06-26] MEDS: VENLAFAXINE HCL XR 150 MG CAPXR PO SCH (08:37)
[2020-06-26] MEDS: INSULIN GLARGINE SOLOSTAR 100 UNITS/ML 3 ML PEN SQ SCH (12:14)
[2020-06-26] MEDS: ATORVASTATIN 40 MG TAB PO SCH (16:39)
--- NOTE | 2020-06-26 17:43 | Billing Data ---
Date of Service June 26, 2020 Coding Level of Care Code 17311 Subseq Hosp Care Lvl 3
[2020-06-26] MEDS ORDERED: ONDANSETRON 4 MG OD TAB PO PRN (17:55)
[2020-06-26] MEDS: ONDANSETRON 8MG OD TAB PO SCH ×2 (18:43→23:15)
[2020-06-26] MEDS: traZODone HCL 100 MG TAB PO SCH (20:58)
[2020-06-26] MEDS: MIRABEGRON ER 25 MG TAB PO SCH (20:59)
[2020-06-26] MEDS: QUEtiapine FUMARATE 200 MG TAB PO SCH (20:59)
[2020-06-26] MEDS: FAMOTIDINE 20 MG TAB PO SCH (21:00)
[2020-06-27] MEDS: CEFEPIME 2,000 MG in SYRINGE 0 ML IV SCH ×3 (02:30→14:31)
[2020-06-27] MEDS: HEPARIN 100 UNIT/ML 5ML FLUSH FLUSH PRN ×2 (02:30→14:32)
[2020-06-27] MEDS: LEVOTHYROXINE SODIUM 100 MCG TABLET PO SCH (05:41)
[2020-06-27] MEDS: QUEtiapine FUMARATE 25 MG TABLET PO SCH ×2 (05:41→14:31)
[2020-06-27] MEDS: ONDANSETRON 8MG OD TAB PO SCH ×2 (05:42→11:55)
[2020-06-27 06:16] LABS: Basophils # (auto) 0.02 K/uL (0-0.2); Basophils % (auto) 0.2 %; Eosinophils # (auto) 0.23 K/uL (0-0.5); Eosinophils % (auto) 2.3 %; Hematocrit (blood only) 38.5 % (37-47); Hemoglobin 11.9 g/dL (12.0-16.0); Immature Granulocytes # (auto) 0.03 K/uL (0.00-0.02); Immature Granulocytes % (auto) 0.3 %; Lymphocytes # (auto) 2.36 K/uL (1.2-3.4); Lymphocytes % (auto) 23.5 %; Mean Corpuscular Hemoglobin 27.9 pg (25-34); Mean Corpuscular Hgb Conc 30.9 g/dL (32-36); Mean Corpuscular Volume 90.2 fL (80-100); Mean Platelet Volume 10.8 fL (7.4-10.4); Monocytes # (auto) 0.83 K/uL (0.11-0.59); Monocytes % (auto) 8.3 %; Neutrophils # (auto) 6.58 K/uL (1.4-6.5); Neutrophils % (auto) 65.4 %; Platelet Count 201 K/uL (130-400); RDW Standard Deviation 55.1 fL (36.4-46.3); Red Blood Count 4.27 M/uL (4.2-5.4); White Blood Count 10.05 K/uL (4.8-10.8)
[2020-06-27 07:02] LABS: BUN Creatinine Ratio 27.1 (10-20); Calcium 8.9 mg/dl (8.5-10.1); Creatinine Clr Calc Pharmacy 191.7 ml/min; Est GFR (African American) 148.4; Potassium 3.6 mmol/L (3.5-5.1)
[2020-06-27] MEDS: UMECLIDINIUM BROMIDE 62.5MCG/BLISTER 7 PUFFS/INHALER INH SCH (08:29)
[2020-06-27] MEDS: FLUTICASONE/VILANTEROL 200/25MCG 14 PUFFS/INHALER INH SCH ×2 (08:29→21:12)
[2020-06-27] MEDS: FAMOTIDINE 20 MG TAB PO SCH ×2 (08:30→21:13)
[2020-06-27] MEDS: VENLAFAXINE HCL XR 75 MG CAPXR PO SCH (08:31)
[2020-06-27] MEDS: VENLAFAXINE HCL XR 150 MG CAPXR PO SCH (08:31)
[2020-06-27] MEDS: DOCUSATE SODIUM 100 MG CAP PO SCH (08:31)
[2020-06-27] MEDS: LORATADINE 10 MG TAB PO SCH (08:31)
[2020-06-27] MEDS: APIXABAN 5 MG TABLET PO SCH ×2 (08:31→21:13)
[2020-06-27] MEDS: PANTOprazole 40 MG TAB PO SCH ×2 (08:32→21:14)
[2020-06-27] MEDS: CYPROHEPTADINE HCL 4 MG TAB PO SCH ×3 (08:32→21:13)
[2020-06-27] MEDS: HYOSCYAMINE SULFATE 0.125 MG TAB PO SCH ×3 (08:32→16:19)
[2020-06-27] MEDS: POLYETHYLENE (MIRALAX) 17 GM PACK PO SCH ×3 (08:32→21:13)
[2020-06-27] MEDS: MAGNESIUM OXIDE 400 MG TAB PO SCH (08:33)
[2020-06-27] MEDS: CYANOCOBALAMIN 500 MCG TABLET (VITAMIN B-12) PO SCH (08:34)
[2020-06-27] MEDS: FERROUS SULFATE 325 MG TAB PO SCH (08:34)
--- NOTE | 2020-06-27 08:48 | Hospitalist Progress Note ---
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 + associated chills and 2 episodes of mild emesis of foodstuffs. Stable. Improving. Upper abdominal pain - initially presented as RUQ pain, as of 06/26/20, more epigastric / LUQ. - evolving location most consistent w/ constipation (stool burden noted on CT) - continue TID miralax, BID PPI, BID h2 yolanda. - treating as complicated UTI for now - patient has chronic suprapubic cath, but does complain of urinary complaints - per [facility] ID, would be simple cystitis (and not pyelo) if urinary system is source of patient's abd pain, otherwise consider GI etiologies - lower suspicion for pyleo given CT abd result - negative procalc, no leukocytosis - elevated lactate, resolved 06/24/20 1358 3.0H. -> 06/24/20 1656 0.8 - Obtain UA, C&S results from [facility], obtained on 06/22/20 - 06/24/20 uc pending. + gram neg bacilli. BC pending - 05/02/20 UC pseudomonas, morganella - 03/24 UC klebsiella resistant to nitrofurantoin - prn tylenol 650mg PO q6hprn for pain. will not add morphine at this time 06/25/20 [facility] ID consult recommendations (paraphrased): continue 2g IV cefepime for now, awaiting 06/22/20 [facility] UC sensitivities. Anticipate no more than 5 days of abx therapy. The symptoms and lab findings are not typical for UTI and no clinical evidence of pyelo. It is possible the GI symptoms are not related to the urinary findings, which may be urinary colonization in setting of suprapubic cath. 06/27/20: abd pain much improved, 9->4/10 intensity. no abdominal TTP. continue bowel regimen. continue IV cefepime 2g q12h(switched from q8 to q12 scheduleing), anticipating total of 7 day course for complicated UTI. dysuria resolved, reassuring. case management will help set up home health services for IV abx at home, anticipating Monday06/29/20 dispo. - wbc 8.55->10.05 still wnl. hb 11.9 stable. electrolytes wnl. cr 0.49, stable kidney function. no tylenol requested/needed past 24 hours Acute complicated UTI - as per above, symptoms resolved 06/27/20 - symptomwise on presentation less likely involving upper urinary tract - patient has chronic suprapubic cath - continue 7 day course of IV cefepime 2g q12h as per above diabetes mellitus - 04/16/20 A1c 6.0 - continue home lantus 12u - patient also takes Ozempic every Monday Spina bifida - With neurogenic bladder s/p suprapubic catheter. bilateral above knee amputations - bilateral knee stumps, stable, see attending documentation - ongoing wound care Elevated lactic acid level - as per above, resolved Suprapubic catheter, neurogenic bladder - chronic, site appears intact and nonerythematous. 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 venlafaxine asthma - Incruse Ellipta, Breo Ellipta. albuterol inh and Xopenex neb prn FEN/GI: regular diet. no mIVF code: full dvt ppx: eliquis 5 bid dispo: med/surg, tentative dispo home w/ home health (IV cefepime) on 06/29/20 (2) Complicated UTI (urinary tract infection): (3) Spina bifida: (4) Elevated lactic acid level: (5) Suprapubic catheter: (6) QUALITY PROCESS AUDITOR (ventriculoperitoneal) shunt status: (7) History of pulmonary embolism: (8) Hydrocephalus: (9) Metabolic syndrome: (10) Hypothyroidism: (11) Type 2 diabetes mellitus: (12) Migraines: (13) Asthma: Admission and Anticipated Discharge Date Admission Date: June 24, 2020 Supervising Physician Co-Signing Physician Notes I personally examined the patient and verified all canales points of history and exam, discussed case, and agree with decision making with Dr Ramirez. bellly pain doing better, eating well. understands that insurance is closed - can't get IV abx for home yet. vitals noted nad heent nc at mmm breathing unlabored no accessory muscles good effort skin no rashes no pallor or icterus. questionable complicated UTI in the setting of suprapubic catheter - cefepime for now- improving. follow clinically abdominal pain - likely a combination of constipation and indigestion - miralax and PPI/H2/zofran --> improved and eating well wounds - stage 3 pressure ulcer R distal stump, R proximal stump, and stage 2 pressure ulcer L stump - all recently noted by wound clinic and present on admission - ongoing wound care/healing otherwise as above Subjective Feels better today, abd pain much improved. Today, it is 4/10 intensity. She feels ready for home potentially. Nausea is at baseline. No vomiting, cp, sob, f/c, pabon. Urinary symptoms have resolved. +flatus, but no BM. Denies complaints w/ port. Review of Systems Review of Systems: Constitutional: Denies fever, chills Eyes: Denies blurry vision Cardiovascular: Denies chest pain Respiratory: Denies shortness of breath Gastrointestinal: Denies abdominal pain, vomiting Genitourinary: Denies urinary symptoms including dysuria Musculoskeletal: Denies weakness, muscle aches/pain, joint aches/pain Neurological: Denies headache, numbness, tingling, focal weakness Physical Exam Physical Exam: General: Grossly A&O. NAD. Cooperative. HEENT: Atraumatic, normocephalic. Pulm: CTAB. -wheezes, -rales, -rhonchi. No respiratory distress. Cardiac: RRR, -mrg. Abdominal: Nontender, nondistended, soft. Msk: Bilateral knee stumps intact Results & Data Results & Data ([facility]) Vital Signs (Past 12 Hours) Vital Signs Temp Pulse Resp BP Pulse Ox 06/27/20 07:51 36.4 C L 79 16 117/71 95 06/26/20 23:00 36.5 C 96 H 22 102/67 96 Resident Activity Tracking Resident Involvement: Resident Care Provided Care Provided: Adult Hospital Medicine (1) Migraines Intractability: not intractable Migraine type: unspecified Status migrainosus presence: without status migrainosus Qualified Code(s): G43.909 - Migraine, unspecified, not intractable, without status migrainosus (2) Hypothyroidism Hypothyroidism type: unspecified Qualified Code(s): E03.9 - Hypothyroidism, unspecified (3) Asthma Asthma complication type: uncomplicated Asthma persistence: intermittent Asthma severity: mild Qualified Code(s): J45.20 - Mild intermittent asthma, uncomplicated
[2020-06-27] MEDS: INSULIN GLARGINE SOLOSTAR 100 UNITS/ML 3 ML PEN SQ SCH (11:54)
--- NOTE | 2020-06-27 14:20 | Billing Data ---
Date of Service June 27, 2020 Coding Level of Care Code 98708 Subseq Hosp Care Lvl 3
[2020-06-27] MEDS: ATORVASTATIN 40 MG TAB PO SCH (16:18)
[2020-06-27] MEDS: MIRABEGRON ER 25 MG TAB PO SCH (21:13)
[2020-06-27] MEDS: traZODone HCL 100 MG TAB PO SCH (21:13)
[2020-06-27] MEDS: QUEtiapine FUMARATE 200 MG TAB PO SCH (21:14)
[2020-06-28] MEDS: CEFEPIME 2,000 MG in SYRINGE 0 ML IV SCH ×2 (03:07→14:57)
[2020-06-28] MEDS: HEPARIN 100 UNIT/ML 5ML FLUSH FLUSH PRN ×2 (03:07→14:57)
[2020-06-28 06:16] LABS: Basophils # (auto) 0.02 K/uL (0-0.2); Basophils % (auto) 0.2 %; Eosinophils # (auto) 0.21 K/uL (0-0.5); Eosinophils % (auto) 2.1 %; Hemoglobin 11.7 g/dL (12.0-16.0); Immature Granulocytes # (auto) 0.04 K/uL (0.00-0.02); Immature Granulocytes % (auto) 0.4 %; Lymphocytes # (auto) 2.49 K/uL (1.2-3.4); Lymphocytes % (auto) 24.6 %; Mean Corpuscular Hemoglobin 27.7 pg (25-34); Mean Corpuscular Hgb Conc 30.8 g/dL (32-36); Mean Platelet Volume 10.8 fL (7.4-10.4); Monocytes # (auto) 0.75 K/uL (0.11-0.59); Monocytes % (auto) 7.4 %; Neutrophils % (auto) 65.3 %; Platelet Count 192 K/uL (130-400); RDW Coefficient of Variation 16.9 % (11.5-14.5); RDW Standard Deviation 55.2 fL (36.4-46.3); Red Blood Count 4.22 M/uL (4.2-5.4); White Blood Count 10.11 K/uL (4.8-10.8)
[2020-06-28] MEDS: LEVOTHYROXINE SODIUM 100 MCG TABLET PO SCH (06:21)
[2020-06-28] MEDS: QUEtiapine FUMARATE 25 MG TABLET PO SCH ×2 (06:21→14:57)
[2020-06-28 06:46] LABS: BUN Creatinine Ratio 20.6 (10-20); Calcium 8.5 mg/dl (8.5-10.1); Creatinine Clr Calc Pharmacy 180.7 ml/min; Est GFR (African American) 145.5; Est GFR (Non-African American) 125.5; Potassium 3.6 mmol/L (3.5-5.1)
--- NOTE | 2020-06-28 08:42 | Hospitalist Progress Note ---
Date of Service June 28, 2020 Assessment & Plan (1) Acute abdominal pain: Connie Chairez is a 35 year old female with a history of spina bifida, hydrocephalus s/p CONSTRUCTION TECH Shunt, Asthma, Bipolar Disorder, Hypothyroidism, Sleep Apnea, PTSD, Type 2 Diabetes Mellitus, Prior Pulmonary Embolism, Bilateral BKA's, Nephrolithiasis, Neurogenic Bladder s/p Indwelling Suprapubic Catheter, and Recurrent UTI's (with MDR Klebsiella) who presents to [facility] w/ RUQ abdominal pain and R flank pain. + associated chills and 2 episodes of mild emesis of foodstuffs. Stable. Improving. Upper abdominal pain - initially presented as RUQ pain, as of 06/26/20, more epigastric / LUQ. - evolving location most consistent w/ constipation (stool burden noted on CT) - continue TID miralax, BID PPI, BID h2 yolanda. - treating as complicated UTI for now - patient has chronic suprapubic cath, but does complain of urinary complaints - per [facility] ID, would be simple cystitis (and not pyelo) if urinary system is source of patient's abd pain, otherwise consider GI etiologies - lower suspicion for pyleo given CT abd result - negative procalc, no leukocytosis - elevated lactate, resolved 06/24/20 1358 3.0H. -> 06/24/20 1656 0.8 - Obtain UA, C&S results from [facility], obtained on 06/22/20 - 06/24/20 uc pending. + gram neg bacilli. BC pending - 05/02/20 UC pseudomonas, morganella - 03/24 UC klebsiella resistant to nitrofurantoin - prn tylenol 650mg PO q6hprn for pain. will not add morphine at this time 06/25/20 [facility] ID consult recommendations (paraphrased): continue 2g IV cefepime for now, awaiting 06/22/20 [facility] UC sensitivities. Anticipate no more than 5 days of abx therapy. The symptoms and lab findings are not typical for UTI and no clinical evidence of pyelo. It is possible the GI symptoms are not related to the urinary findings, which may be urinary colonization in setting of suprapubic cath. 06/27/20: abd pain much improved, 9->4/10 intensity. no abdominal TTP. continue bowel regimen. continue IV cefepime 2g q12h(switched from q8 to q12 scheduleing), anticipating total of 7 day course for complicated UTI. dysuria resolved, reassuring. case management will help set up home health services for IV abx at home, anticipating Monday06/29/20 dispo. - wbc 8.55->10.05 still wnl. hb 11.9 stable. electrolytes wnl. cr 0.49, stable kidney function. no tylenol requested/needed past 24 hours 06/28/20: no acute lab changes. pain controlled. plan is d/c home w/ home health 06/29/20. Patient has chest wall port. Will need to f/u whether can use this port for IV abx or needs replacement. pleuritic chest pain - likely 2/2 musculoskeletal pathology such as muscle spasm - TTP on physical exam. pain alleviated after attending performed OMM technique - no SOB. lower suspicion for PE - ecg wnl. trop x1 negative. repeat pending - will monitor for worsening/recurrence Acute complicated UTI - as per above, symptoms resolved 06/27/20 - symptomwise on presentation less likely involving upper urinary tract - patient has chronic suprapubic cath - continue 7 day course of IV cefepime 2g q12h as per above diabetes mellitus - 04/16/20 A1c 6.0 - continue home lantus 12u - patient also takes Ozempic every Monday Spina bifida - With neurogenic bladder s/p suprapubic catheter. bilateral above knee amputations - bilateral knee stumps, stable, see attending documentation - ongoing wound care Elevated lactic acid level - as per above, resolved Suprapubic catheter, neurogenic bladder - chronic, site appears intact and nonerythematous. continue routine care - continue home mirabegon 25mg qHS CONSTRUCTION TECH (ventriculoperitoneal) shunt - chronic, continue routine care History of pulmonary embolism - continue Eliquis 5 mg BID Hydrocephalus - hx of, s/p vp genetic shunt Metabolic syndrome - continue home statin Hypothyroidism - continue home Synthroid PTSD, schizoaffective disorder, depression - continue home regimen of seroquel, brexiprapazole, cyprohepadine. venlafaxine asthma - Incruse Ellipta, Breo Ellipta. albuterol inh and Xopenex neb prn FEN/GI: regular diet. no mIVF code: full dvt ppx: eliquis 5 bid dispo: med/surg, tentative dispo home w/ home health (IV cefepime) on 06/29/20 (2) Complicated UTI (urinary tract infection): (3) Spina bifida: (4) Elevated lactic acid level: (5) Suprapubic catheter: (6) CONSTRUCTION TECH (ventriculoperitoneal) shunt status: (7) History of pulmonary embolism: (8) Hydrocephalus: (9) Metabolic syndrome: (10) Hypothyroidism: (11) Type 2 diabetes mellitus: (12) Migraines: (13) Asthma: Admission and Anticipated Discharge Date Admission Date: June 24, 2020 Supervising Physician Co-Signing Physician Notes I personally examined the patient and verified all canales points of history and exam, discussed case, and agree with decision making with Dr Ramirez. L sided stabbing chest pain off and on - hurts with a deep breath, but comes and goes. vitals noted nad heent nc at mmm breathing unlabored no accessory muscles good effort skin no rashes no pallor or icterus. msk/ost - L sided intercostals and paraspinals in region of about ribs 4-6 high tone/tender/decreased ROM - direct myofascial/balanced ligamentous tension - tissue texture improved, pt tolerated well. questionable complicated UTI in the setting of suprapubic catheter - cefepime for now- improving. follow clinically - home tomorrow once cefepime can be set up for home rib pain/ rib somatic dysfunction - OMT as above. deep breathing exercises taught to stretch ribs further abdominal pain - likely a combination of constipation and indigestion - miralax and PPI/H2/zofran --> improved and eating well wounds - stage 3 pressure ulcer R distal stump, R proximal stump, and stage 2 pressure ulcer L stump - all recently noted by wound clinic and present on admission - ongoing wound care/healing otherwise as above Subjective Epigastric abd pain is 5/10. Overall pain is much better and tolerable. Tolerating regular diet. + lots of flatus, no BM. Mild intermittent dysuria and frequency. Requesting that her mother help change her suprapubic catheter (was due yesterday). No other concerns. PM update: patient complained of 20 minute episode of sharp, constant L pleuritic chest pain. Not positional, not exertional. No dyspnea, headache, diaphoresis. Some L arm numbness. Hx similar episodes for past 6 months that would present every few days and last for similar duration. Prior incidents -> normal and negative troponins Episode was preceded by pinching-type back pain at left back Review of Systems Review of Systems: Constitutional: Denies fever, chills Cardiovascular: Denies chest pain, Respiratory: Denies shortness of breath Gastrointestinal: Denies nausea, vomiting, diarrhea Genitourinary: See HPI Musculoskeletal: Denies weakness Neurological: Denies headache, tingling, focal weakness Physical Exam Physical Exam: General: Grossly A&O. NAD. Cooperative. HEENT: Atraumatic, normocephalic. Pulm: CTAB. -wheezes, -rales, -rhonchi. No respiratory distress. Cardiac: RRR, -mrg. Abdominal: Mild epigastric ttp to deep palpation, nondistended, soft. Msk: bilateral knee stumps intact. PM exam: TTP at L paraspinous muscles at mid back. No chest wall tenderness. Results & Data Results & Data ([facility]) Vital Signs (Past 12 Hours) Vital Signs Temp Pulse Resp BP Pulse Ox 06/28/20 08:00 36.3 C L 87 16 145/76 H 97 06/27/20 23:57 36.6 C 97 H 14 103/70 96 Resident Activity Tracking Resident Involvement: Resident Care Provided Care Provided: Adult Hospital Medicine (1) Migraines Intractability: not intractable Migraine type: unspecified Status migrainosus presence: without status migrainosus Qualified Code(s): G43.909 - Migraine, unspecified, not intractable, without status migrainosus (2) Hypothyroidism Hypothyroidism type: unspecified Qualified Code(s): E03.9 - Hypothyroidism, unspecified (3) Asthma Asthma complication type: uncomplicated Asthma persistence: intermittent Asthma severity: mild Qualified Code(s): J45.20 - Mild intermittent asthma, uncomplicated
[2020-06-28] MEDS: HYOSCYAMINE SULFATE 0.125 MG TAB PO SCH ×3 (08:54→16:57)
[2020-06-28] MEDS: CYPROHEPTADINE HCL 4 MG TAB PO SCH ×3 (08:54→20:43)
[2020-06-28] MEDS: PANTOprazole 40 MG TAB PO SCH ×2 (08:54→20:42)
[2020-06-28] MEDS: POLYETHYLENE (MIRALAX) 17 GM PACK PO SCH ×3 (08:54→20:42)
[2020-06-28] MEDS: FLUTICASONE/VILANTEROL 200/25MCG 14 PUFFS/INHALER INH SCH ×2 (08:55→20:41)
[2020-06-28] MEDS: VENLAFAXINE HCL XR 75 MG CAPXR PO SCH (08:55)
[2020-06-28] MEDS: APIXABAN 5 MG TABLET PO SCH ×2 (08:55→20:42)
[2020-06-28] MEDS: LORATADINE 10 MG TAB PO SCH (08:55)
[2020-06-28] MEDS: VENLAFAXINE HCL XR 150 MG CAPXR PO SCH (08:55)
[2020-06-28] MEDS: DOCUSATE SODIUM 100 MG CAP PO SCH (08:55)
[2020-06-28] MEDS: FAMOTIDINE 20 MG TAB PO SCH ×2 (08:55→20:42)
[2020-06-28] MEDS: UMECLIDINIUM BROMIDE 62.5MCG/BLISTER 7 PUFFS/INHALER INH SCH (08:56)
[2020-06-28] MEDS: FERROUS SULFATE 325 MG TAB PO SCH (09:04)
[2020-06-28] MEDS: INSULIN GLARGINE SOLOSTAR 100 UNITS/ML 3 ML PEN SQ SCH (12:07)
--- NOTE | 2020-06-28 15:36 | Billing Data ---
Date of Service June 28, 2020 Coding Level of Care Code 10131 Subseq Hosp Care Lvl 3
--- NOTE | 2020-06-28 15:37 | Hospitalist Progress Note ---
Date of Service June 28, 2020 Assessment & Plan Admission and Anticipated Discharge Date Admission Date: June 24, 2020 Results & Data Results & Data ([facility]) Vital Signs (Past 12 Hours) Vital Signs Temp Pulse Resp BP Pulse Ox 06/28/20 15:26 98.1 F 96 H 16 110/72 94 06/28/20 13:09 91 H 20 142/94 H 95 06/28/20 08:00 97.3 F L 87 16 145/76 H 97 PG Care Time/CCT Total # of Minutes Spent Total Time Spent with Patient: Total time spent is greater than 50% in coordination of care (as documented) at patient's floor/unit and/or counseling patient: Coding Level of Care Code None CPT Codes Musculoskeletal - Musculoskeletal: 00544 Osteo Rubin Tr 1-2 Body regions ([id number])
[2020-06-28] MEDS: ATORVASTATIN 40 MG TAB PO SCH (16:57)
[2020-06-28] MEDS: QUEtiapine FUMARATE 200 MG TAB PO SCH (20:42)
[2020-06-28] MEDS: traZODone HCL 100 MG TAB PO SCH (20:43)
[2020-06-28] MEDS: MIRABEGRON ER 25 MG TAB PO SCH (20:43)
[2020-06-29] MEDS: CEFEPIME 2,000 MG in SYRINGE 0 ML IV SCH ×2 (02:18→14:19)
[2020-06-29] MEDS: HEPARIN 100 UNIT/ML 5ML FLUSH FLUSH PRN ×2 (02:18→14:19)
[2020-06-29] MEDS: QUEtiapine FUMARATE 25 MG TABLET PO SCH ×2 (06:01→14:19)
[2020-06-29] MEDS: LEVOTHYROXINE SODIUM 100 MCG TABLET PO SCH (06:01)
[2020-06-29 06:33] LABS: Basophils # (auto) 0.02 K/uL (0-0.2); Basophils % (auto) 0.2 %; Eosinophils # (auto) 0.26 K/uL (0-0.5); Eosinophils % (auto) 2.6 %; Hematocrit (blood only) 37.5 % (37-47); Hemoglobin 11.6 g/dL (12.0-16.0); Immature Granulocytes # (auto) 0.02 K/uL (0.00-0.02); Immature Granulocytes % (auto) 0.2 %; Lymphocytes # (auto) 2.26 K/uL (1.2-3.4); Lymphocytes % (auto) 22.7 %; Mean Corpuscular Hgb Conc 30.9 g/dL (32-36); Mean Corpuscular Volume 90.6 fL (80-100); Mean Platelet Volume 10.7 fL (7.4-10.4); Monocytes # (auto) 0.74 K/uL (0.11-0.59); Monocytes % (auto) 7.4 %; Neutrophils # (auto) 6.67 K/uL (1.4-6.5); Neutrophils % (auto) 66.9 %; Platelet Count 201 K/uL (130-400); RDW Coefficient of Variation 17.2 % (11.5-14.5); RDW Standard Deviation 56.2 fL (36.4-46.3); Red Blood Count 4.14 M/uL (4.2-5.4); White Blood Count 9.97 K/uL (4.8-10.8)
[2020-06-29 07:05] LABS: BUN Creatinine Ratio 24.6 (10-20); Blood Urea Nitrogen 12 mg/dl (7-18); Carbon Dioxide 30 mmol/L (21-32); Chloride 105 mmol/L (98-107); Creatinine Clr Calc Pharmacy 199.9 ml/min; Est GFR (African American) > 150.0; Est GFR (Non-African American) 129.8; Glucose 147 mg/dl (70-99); Potassium 3.7 mmol/L (3.5-5.1); Sodium 139 mmol/L (136-145)
[2020-06-29] MEDS: FLUTICASONE/VILANTEROL 200/25MCG 14 PUFFS/INHALER INH SCH (08:23)
[2020-06-29] MEDS: HYOSCYAMINE SULFATE 0.125 MG TAB PO SCH ×2 (08:24→11:50)
[2020-06-29] MEDS: DOCUSATE SODIUM 100 MG CAP PO SCH (08:25)
[2020-06-29] MEDS: LORATADINE 10 MG TAB PO SCH (08:25)
[2020-06-29] MEDS: VENLAFAXINE HCL XR 75 MG CAPXR PO SCH (08:25)
[2020-06-29] MEDS: FERROUS SULFATE 325 MG TAB PO SCH (08:26)
[2020-06-29] MEDS: VENLAFAXINE HCL XR 150 MG CAPXR PO SCH (08:26)
[2020-06-29] MEDS: APIXABAN 5 MG TABLET PO SCH (08:26)
[2020-06-29] MEDS: POLYETHYLENE (MIRALAX) 17 GM PACK PO SCH ×3 (08:27→11:50)
[2020-06-29] MEDS: UMECLIDINIUM BROMIDE 62.5MCG/BLISTER 7 PUFFS/INHALER INH SCH (08:27)
[2020-06-29] MEDS: MAGNESIUM OXIDE 400 MG TAB PO SCH (08:27)
[2020-06-29] MEDS: FAMOTIDINE 20 MG TAB PO SCH (08:27)
[2020-06-29] MEDS: CYPROHEPTADINE HCL 4 MG TAB PO SCH ×2 (08:28→08:30)
[2020-06-29] MEDS: CYANOCOBALAMIN 500 MCG TABLET (VITAMIN B-12) PO SCH (08:30)
[2020-06-29] MEDS: PANTOprazole 40 MG TAB PO SCH (08:30)
[2020-06-29] MEDS ORDERED: FLUCONAZOLE 50 MG TAB PO SCH (09:00)
--- NOTE | 2020-06-29 11:14 | Electrocardiogram Report ---
Test Reason : Blood Pressure : / mmHG Vent. Rate : 085 BPM Atrial Rate : 085 BPM P-R Int : 148 ms QRS Dur : 086 ms QT Int : 346 ms P-R-T Axes : 030 022 027 degrees QTc Int : 411 ms Normal sinus rhythm Nonspecific ST abnormality When compared with ECG of 24-JUN-2020 13:31, No significant change was found Confirmed by Rudy Lazo ([id number]) on 06/29/2020 11:14:11 AM Referred By: REFERRED SELF Confirmed By:Fabian Lazo
[2020-06-29] MEDS: INSULIN GLARGINE SOLOSTAR 100 UNITS/ML 3 ML PEN SQ SCH (11:49)
--- NOTE | 2020-06-29 13:26 | Discharge Summary ---
Date of Service June 29, 2020 Admission HPI Per Admitting Provider Ms. 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 This feels like she has a urinary tract infection. She has had chills, but denies any fever. Patient is being followed by the wound clinic for wounds on her BKA stumps -- but states that these are healed up, she only has a scab on one of her stumps -- and denies any pain, redness, or drainage from this site. She met with wound clinic on 06/17/2020 and did not require any debridement. She had a Urine Analysis and Urine C&S collected at [facility] -- but we do not have any results back yet. Admission Exam Per Admitting Provider GENERAL: Patient in no acute distress. HEENT: Head is atraumatic, normocephalic. EOM's intact. Facies symmetric. No perioral cyanosis. NECK: No JVD. JVP is at the level of the clavicle sitting upright. Carotid upstrokes are + 2 bilaterally. CHEST/LUNGS: Clear to auscultation throughout all lung [place]. No wheezes, rales, or crackles. CVS: S1 and S2 are regular without obvious murmurs, gallops, or rubs. PMI is nonpalpable. No lifts, heaves, or thrills. No abdominal aortic or renal bruits. ABDOMINAL EXAM: Bowel sounds are present. No masses or organomegaly. Suprapubic catheter is in place. Right flank tender to jarring. No guarding or rebound tenderness. EXTREMITIES: Bilateral BKA's, no open areas or erythema. No clubbing or cyanosis. No edema. Intact radial pulses bilaterally. NEUROLOGIC EXAM: Patient is awake, alert, and oriented. Pleasant and cooperative. Answers questions appropriately. Speech is clear. Principal Diagnosis Complicated Urinary Tract Infection Discharge Exam General: Grossly A&O. NAD. Cooperative. HEENT: Atraumatic, normocephalic. Pulm: CTAB. -wheezes, -rales, -rhonchi. No respiratory distress. Cardiac: RRR, -mrg. Abdominal: soft, non-distended, mild TTP of lower abdominal quadrants bilaterally Msk: bilateral knee stumps intact and stable Discharge Data Allergies Allergy/AdvReac Type Severity Reaction Status Date / Time chlorhexidine Allergy Severe blisters Verified 06/14/20 19:11 adhesive Allergy Intermediate TAPE- HIVES Verified 06/14/20 19:11 ceftriaxone Allergy Intermediate rash, Has Verified 06/14/20 19:11 tolerated cefepime and Zerbaxa ciprofloxacin Allergy Intermediate hives Verified 06/14/20 19:11 clindamycin Allergy Intermediate Redness/Itc Verified 06/14/20 19:11 hiness imipenem Allergy Intermediate PT REPORTS Verified 06/14/20 19:11 ITCHING levofloxacin Allergy Intermediate rash,HEARD Verified 06/14/20 19:11 VOICES linezolid Allergy Intermediate rash Verified 06/14/20 19:11 nitrofurantoin Allergy Intermediate rash and Verified 06/14/20 19:11 hives trimethoprim Allergy Intermediate Hives Verified 06/14/20 19:11 vancomycin Allergy Intermediate rash Verified 06/14/20 19:11 amikacin Allergy Unknown PER DR Verified 06/14/20 19:11 ROBINS,RXN WAS TO ZOSYN NOT AMKrash;hives Bactrim Allergy Unknown Hives Verified 01/11/18 17:31 onabotulinumtoxinA Allergy Unknown Rash/swelling Verified 06/14/20 19:11 [From Botox] at injection site sulfamethoxazole Allergy Unknown Hives Verified 06/14/20 19:11 buspirone AdvReac Severe HALLUCINATI Verified 06/14/20 19:11 ONS piperacillin AdvReac Intermediate SEVERE Verified 06/14/20 19:11 RASH, HIVES tazobactam AdvReac Intermediate SEVERE Verified 06/14/20 19:11 RASH, HIVES tobramycin AdvReac Mild Hives Verified 06/14/20 19:11 latex AdvReac Rash Verified 06/14/20 19:11 Consultations 06/24/20 15:31 ED Decision to Admit Stat 06/24/20 21:11 Consult Infectious Diseases Routine Ordered Studies 06/24/20 13:19 CT abd pelvis IV con only Stat Hospital Course (1) Acute abdominal pain: Connei Chairez is a 35 year old female with a history of spina bifida, 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 Complicated UTI - malodorous urine, suprapubic tenderness and right-sided flank pain for several days leading up to admission - negative procalc, no leukocytosis - Urine culture showed Serratia and Klebsiella resistant to Nitrofurantoin but otherwise pansensitive - CT w/o signs of pyelonephritis - started on Cefepime 2g IV Q12H on 06/24 - ID consulted and recommended 5 days of abx - as of 06/29 patient reports resolution of malodorous urine, flank pain and suprapubic tenderness - Cefepime stopped on discharge - recommend f/u with PCP Chronic Constipation - no BM for ~1 week, throughout hospitalization - worsening abdominal fullness/tenderness due to lack of BMs - CT abd/pelv on 06/24 confirmed stool burden - started on Miralax while hospitalized - increased to QID as of 06/29 - Colace started on 06/29 as well - no BM before d/c but patient is confident she will have BM after coming home, as she usually has constipation issues while hospitalized - continue PRN Miralax/Colace after d/c until BM Diabetes - 04/16/20 A1c 6.0 - continue home lantus 12u - patient also takes Ozempic every Monday Spina bifida - With neurogenic bladder s/p suprapubic catheter. bilateral above knee amputations - bilateral knee stumps, stable, see attending documentation - ongoing wound care Suprapubic catheter, neurogenic bladder - chronic, site appears intact and nonerythematous. continue routine care - continue home mirabegon 25mg qHS History of pulmonary embolism - continue Eliquis 5 mg BID Metabolic syndrome - continue home statin Hypothyroidism - continue home Synthroid PTSD, schizoaffective disorder, depression - continue home regimen of seroquel, brexiprapazole, cyprohepadine. venlafaxine Asthma - Incruse Ellipta, Breo Ellipta. albuterol inh and Xopenex neb prn (2) Complicated UTI (urinary tract infection): (3) Spina bifida: (4) Elevated lactic acid level: (5) Suprapubic catheter: (6) CELL INSTALLER (ventriculoperitoneal) shunt status: (7) History of pulmonary embolism: (8) Hydrocephalus: (9) Metabolic syndrome: (10) Hypothyroidism: (11) Type 2 diabetes mellitus: (12) Migraines: (13) Asthma: Total Time Total Time Spent Total Time Spent (In Minutes): 30 minutes Total Time Includes: Examination of the Patient, Discharge Planning and Medication Reconciliation Discharge Plan Discharge Items Patient Disposition: Home - Home Health Services Reason For Visit: ACUTE PYELONEPHRITIS Discharge Diagnosis: UTI complicated and constipation Activity: Per Instructions section Non-emergency contact: Primary Care Provider Call non-emergency contact if: you have any medication questions, your symptoms worsen, your pain is worsening and you have a fever Follow-up/Referrals: Gela Boone MD [Primary Care Provider] - 07/06/20 10:30 am Diet: Regular Addtl Attending Provider Instructions: Mihaela, It has been our pleasure meeting and caring for you for your abdominal pain and urinary tract infection. After talking with you and examining you we feel that your urinary tract infection was likely a contributor to your abdominal pain. After consulting with our infectious disease doctors we treated you with six days of cefipime. Your urine looks clear and your symptoms appear to have partially resolved. Another reason we think contributed to your abdominal pain is your constipation. We know this is something you have dealt with for a long period of time given your spina bifida. We have tried to get your bowels moving but have been unsuccessful so far in the hospital but after discussion with you, you let us know that you are feeling well enough to go home and you are confident that you can manage the constipation at home. We will discharge you home today on no new medications. If you develop fevers, chills, sweats, or other signs of infection or UTI please return to medical care. I would also strongly recommend making a follow up appointment in the next week with your primary care provider. It was a pleasure caring for you and we wish you all the best moving forward. Pending Studies at Discharge: No Stand-Alone Forms: My [facility], Smoking Cessation Medications and DC Order Prescriptions: Continued cyanocobalamin (vitamin B-12) 1,000 mcg capsule 1,000 mcg PO Q2D RF: 0 ferrous sulfate [Iron (ferrous sulfate)] 325 mg (65 mg iron) tablet 325 mg PO QAM RF: 0 docusate sodium [Colace] 100 mg capsule 100 mg PO QAM RF: 0 fluticasone propion-salmeterol [Advair Diskus] 500-50 mcg/dose blister with device 1 inh INHALATION BID Qty: 60 RF: 5 ondansetron 8 mg tablet,disintegrating 8 mg PO Q6H PRN (Reason: Nausea) Qty: 120 RF: 11 albuterol sulfate [ProAir HFA] 90 mcg/actuation HFA aerosol inhaler 2 inh INH Q6 PRN (Reason: Shortness Of Breath Or Wheezing) Qty: 8 RF: 3 cetirizine 10 mg tablet 10 mg PO DAILY PRN (Reason: Allergy Symptoms) Qty: 30 RF: 11 levalbuterol HCl [Xopenex] 0.63 mg/3 mL solution for nebulization 0.63 mg INHALATION Q6H PRN (Reason: Shortness Of Breath) Qty: 36 RF: 1 Eliquis 5 mg tablet 5 mg PO BID Qty: 60 RF: 5 pantoprazole [Protonix] 40 mg tablet,delayed release (DR/EC) 40 mg PO BID Qty: 180 RF: 3 riboflavin (vitamin B2) 400 mg tablet 400 mg PO QDD RF: 0 diclofenac sodium 1 % gel 2 g topical QID PRN (Reason: chest wall pain) Qty: 100 RF: 1 metoclopramide HCl [Reglan] 10 mg tablet 10 mg PO Q8 PRN (Reason: Unknown) RF: 0 polyethylene glycol 3350 [Miralax] 17 gram/dose Powder 17 g PO TID PRN (Reason: Constipation) RF: 0 magnesium 200 mg tablet 400 mg PO Q2D RF: 0 venlafaxine [Effexor XR] 75 mg capsule,extended release 24hr 75 mg PO QAM RF: 0 trazodone 150 mg tablet 300 mg PO HS RF: 0 levothyroxine [Synthroid] 100 mcg tablet 100 mcg PO DAILYBB RF: 0 Rexulti 4 mg tablet 4 mg PO QAM RF: 0 cyproheptadine 4 mg tablet 4 mg PO BID RF: 0 Lantus Solostar U-100 Insulin 100 unit/mL (3 mL) insulin pen 12 unit SQ QDL RF: 0 famotidine 40 mg tablet 40 mg PO HS RF: 0 atorvastatin 40 mg tablet 40 mg PO QDD RF: 0 fluconazole [Diflucan] 150 mg tablet 150 mg PO WK RF: 0 Ozempic 0.25 mg or 0.5 mg(2 mg/1.5 mL) pen injector 1 mg SUBCUT WK RF: 0 hydroxyzine HCl 25 mg tablet 25 - 50 mg PO QID PRN (Reason: Anxiety) RF: 0 loratadine [Claritin] 10 mg Tablet 10 mg PO QAM RF: 0 quetiapine [Seroquel] 25 mg tablet 12.5 mg PO BID RF: 0 venlafaxine 150 mg Tablet Extended Release 24hr 150 mg PO QAM RF: 0 PNV cmb#95-ferrous fumarate-FA [] 28 mg iron- 800 mcg Tablet 1 tab PO QDL RF: 0 hyoscyamine sulfate [Levsin] 0.125 mg tablet 0.125 mg PO TIDM RF: 0 acetaminophen [Tylenol Extra Strength] 500 mg Tablet 500 - 1,000 mg PO DIRECTED PRN (Reason: Pain) RF: 0 quetiapine 200 mg tablet 200 mg PO HS RF: 0 Myrbetriq 25 mg tablet extended release 24 hr 25 mg PO HS RF: 0 cyclobenzaprine 5 mg tablet 5 mg PO Q8H PRN (Reason: muscle spasm) RF: 0 cyproheptadine 4 mg tablet 2 mg PO QAM RF: 0 nitrofurantoin monohyd/m-cryst 100 mg capsule 100 mg PO BID RF: 0 Spiriva Respimat 1.25 mcg/actuation mist 2 puff INHALATION QAM RF: 0 Discharge Orders: Discharge Order (Routine); Ordered 06/29/20 Ordered By: Onesimo Christine Admission Data Admit Date/Time: 06/24/20 19:46 Attending Provider: Vinicius Pelayo Admit Provider: Nasir Villegas Primary Care Provider: Gela Boone Other Providers: Nasir Villegas ; Frandy Kirk ; Brown Barrett ; Darian Jacobo I. ; Shon Chase II ; Nohemi Burgos ; Werner Almanza ; Jesus Ramirez ; [place] Other Interventions: Discharge Summary Assessment (RN) Last Done: 06/29/20 12:55 Supervising Physician Co-Signing Physician Notes Attending attestation Pt seen and examined in concert with Dr. Wall. In agreement with the documented findings as noted in the resident documentation with any exceptions or additions as noted here. Resolved suprapubic abd pain and right back pain complaints which patient associates with UTI. Ongoing abdominal pressure/discomfort from constipation which is common for patient during admission, usually treated following D/C with increasing doses of miralax/colace until resolution (usually QID). On examination, S1/S2 nl RRR no MCG. CTAB. Abd NT/ND BS+ve Cystitis, uncomplicated - completed course of IV abx while inpatient with resolution of symptoms Constipation - QID miralax with precautions re: outpatient f/u with PCP for same if no improvement. Else see resident documentation as noted. Total attending time spent on this patient on the day of discharge: 35 minutes.
== END 2020-06-29 15:30 | disposition home health service (06) ==
LOC: ED 12:49 → SUATTDRO 19:46 → INTOOBSV 19:46 → 2W 19:46

== ENCOUNTER 2022-06-26 09:27 | Inpatient (IN) ==
[2022-06-26] MEDS ORDERED: MoRPHine SULFATE 4 MG/ML 1 ML CARP\\VIAL IV STA (09:42)
[2022-06-26] MEDS ORDERED: ONDANSETRON INJ 2 MG/ML 2 ML VIAL IV STA ×2 (09:42→14:01)
[2022-06-26] MEDS ORDERED: SODIUM CHLORIDE 0.9% 500 ML IV STA (09:42)
--- NOTE | 2022-06-26 09:45 | Emergency Department Note ---
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 mcg/actuation HFA aerosol inhaler 2 inh INH Q6H PRN (Reason: Shortness Of Breath Or Wheezing) Qty: 8 3RF (DME) Hospital Bed [facility] [place] See Rx Instructions .Route Qty: 1 0RF Rx Instructions: As directed semi electric bed with side rails and mattress fluticasone propion-salmeterol [Advair Diskus] 500-50 mcg/dose blister with device 1 inh INHALATION BID Qty: 60 5RF levalbuterol HCl 0.63 mg/3 mL solution for nebulization See Rx Instructions .ROUTE .COMPLEX Qty: 90 1RF Dose Instruction: INHALE 1 VIAL VIA NEBULIZER EVERY 6 HOURS NEEDED FOR SHORTNESS OF BREATH Rx Instructions: INHALE 1 VIAL VIA NEBULIZER EVERY 6 HOURS NEEDED FOR SHORTNESS OF BREATH (DME) Mattress (Air or other) [facility] [place] See Rx Instructions .Route Qty: 1 0RF Rx Instructions: ALTERNATING PRESSURE MATTRESS FOR HOSPITAL BED Eliquis 5 mg tablet 5 mg PO BID Qty: 60 5RF famotidine 40 mg tablet 40 mg PO HS Qty: 90 3RF ondansetron 8 mg tablet,disintegrating See Rx Instructions .ROUTE .COMPLEX Qty: 120 11RF Dose Instruction: TAKE 1 TABLET SUBLINGUALLY EVERY 6 HOURS NEEDED FOR NAUSEA Rx Instructions: TAKE 1 TABLET SUBLINGUALLY EVERY 6 HOURS NEEDED FOR NAUSEA pantoprazole 40 mg tablet,delayed release (DR/EC) See Rx Instructions .ROUTE .COMPLEX Qty: 60 1RF Dose Instruction: TAKE 1 TABLET BY MOUTH TWICE A DAY Rx Instructions: TAKE 1 TABLET BY MOUTH TWICE A DAY (DME) FreeStyle Fara 2 Sensor Kit See Rx Instructions miscellaneous .MEDSUPPLY Qty: 2 11RF Rx Instructions: Change q 14 days to monitor glucose. insulin glargine [Lantus Solostar U-100 Insulin] 100 unit/mL (3 mL) insulin pen 50 unit subcut DAILY Qty: 45 2RF (DME) pen needle, diabetic [BD Ultra-Fine Mini Pen Needle] 31 gauge x 3/16" needle See Rx Instructions .ROUTE .MEDSUPPLY Qty: 200 3RF Rx Instructions: Use to inject insulin QID riboflavin (vitamin B2) 400 mg tablet 400 mg PO QAM loxapine succinate 5 mg capsule 5 mg PO QID PRN Spiriva Respimat 2.5 mcg/actuation mist 2 inh inhalation DAILY Trulicity 4.5 mg/0.5 mL pen injector 4.5 mg subcut Q7D 90 Days Qty: 6 1RF insulin lispro 100 unit/mL solution 40 unit subcut DAILY Hold Instructions: On hold due to pt not using Omnipod-plans to restart Rx Instructions: 40U daily via Omnipod insulin aspart U-100 [Novolog FlexPen U-100 Insulin] 100 unit/mL (3 mL) insulin pen 90 unit subcut DAILY Qty: 30 5RF Rx Instructions: Inject per carb ratio; TDD 90 units divalproex [Depakote] 250 mg tablet,delayed release (DR/EC) 1,500 mg PO QAM cyclobenzaprine 5 mg tablet 5 mg PO TID PRN (Reason: muscle spasm) atenolol 100 mg tablet 100 mg PO HS docusate sodium [Colace] 100 mg capsule 100 mg PO BID atorvastatin 40 mg tablet 40 mg PO QAM 90 Days Qty: 90 3RF (DME) [employer] PDM Kit (Gen 4) Misc See Rx Instructions .Route Qty: 1 0RF Rx Instructions: As directed (DME) [employer] Dash Pods (Gen 4) Cartridge See Rx Instructions .Route Qty: 15 11RF Rx Instructions: As directed to change pod every 2 days Linzess 145 mcg capsule 145 mcg PO QAM polyethylene glycol 3350 [Miralax] 17 gram/dose Powder 17 g PO TID PRN (Reason: Constipation) venlafaxine [Effexor XR] 75 mg capsule,extended release 24hr 75 mg PO QAM Rx Instructions: TAKE WITH 150MG CAPSULE = 225MG DAILY. trazodone 150 mg tablet 300 mg PO HS Rexulti 4 mg tablet 4 mg PO QAM cyproheptadine 4 mg tablet 4 mg PO TID venlafaxine 150 mg Tablet Extended Release 24hr 150 mg PO QAM Rx Instructions: TAKE WITH 75MG CAPSULE = 225MG DAILY. PNV cmb#[id number]-[id number] fumarate-FA [] 28 mg iron- 800 mcg Tablet 1 tab PO QDL acetaminophen [Tylenol Extra Strength] 500 mg Tablet 500 - 1,000 mg PO DIRECTED PRN (Reason: Pain) quetiapine 200 mg tablet 300 mg PO HS fluconazole [Diflucan] 200 mg Tablet 200 mg PO DAILY montelukast [Singulair] 10 mg tablet 10 mg PO PM levothyroxine [Synthroid] 100 mcg tablet 100 mcg PO QAM dicyclomine 10 mg Capsule 20 mg PO BID clorazepate dipotassium 3.75 mg Tablet 3.75 mg PO TID loratadine 10 mg Tablet 20 mg PO QAM (DME) Omnipod Dash Intro Kit (Gen 4) Cartridge SUBCUT furosemide 40 mg tablet 40 mg PO DAILY daptomycin 500 mg Recon Soln 500 mg IV DAILY Label Comments: 12 days left Rx Instructions: administer over 30 mins dexamethasone 6 mg tablet 6 mg PO DAILY Qty: 6 0RF Referrals Referrals: Candie Clemons MD [Primary Care Provider] - : UTI (urinary tract infection) Qualifiers: Urinary tract infection type: site unspecified Hematuria presence: with hematuria Qualified Code(s): N39.0 - Urinary tract infection, site not specified
[2022-06-26 10:19] LABS: Basophils # (auto) 0.02 K/uL (0-0.2); Basophils % (auto) 0.3 %; Eosinophils # (auto) 0.19 K/uL (0-0.50); Eosinophils % (auto) 2.6 %; Hemoglobin 11.9 g/dl (12.0-16.0); Immature Granulocytes # (auto) 0.02 K/uL (0.00-0.02); Immature Granulocytes % (auto) 0.3 %; Lymphocytes # (auto) 1.95 K/uL (1.2-3.4); Lymphocytes % (auto) 26.4 %; Mean Corpuscular Hemoglobin 31.2 pg (25.0-34.0); Mean Corpuscular Hgb Conc 31.3 g/dL (32.0-36.0); Mean Corpuscular Volume 99.5 fL (80.0-100.0); Mean Platelet Volume 10.3 fL (9.4-12.3); Monocytes # (auto) 0.39 K/uL (0.24-0.82); Monocytes % (auto) 5.3 %; Neutrophils # (auto) 4.81 K/uL (1.4-6.5); Neutrophils % (auto) 65.1 %; Platelet Count 258 K/uL (130-400); RDW Coefficient of Variation 17.8 % (11.5-14.5); RDW Standard Deviation 65.1 fL (36.4-46.3); Red Blood Count 3.82 M/uL (3.93-5.22); White Blood Count 7.38 K/ul (4.8-10.8)
[2022-06-26 10:40] LABS: Alanine Aminotransferase 13 U/L (7-52); Albumin Globulin Ratio 0.9 (0.9-2); Albumin Level 3.4 gm/dl (3.4-5.0); Alkaline Phosphatase 87 U/L (34-104); Anion Gap 7 (3-11); Aspartate Aminotransferase 14 U/L (13-39); BUN Creatinine Ratio 39.5 (10-20); Bilirubin,Total 0.4 mg/dl (0.2-1.0); Blood Urea Nitrogen 17 mg/dl (6-23); Calcium 9.2 mg/dl (8.5-10.1); Carbon Dioxide 32 mmol/L (21-32); Chloride 100 mmol/L (98-107); Est GFR (African American) > 150.0 ml/min; Est GFR (Non-African American) 131.8 ml/min; Globulin 3.9 gm/dl (2.5-4.0); Glucose 139 mg/dl (70-99(Fasting)); Lipase 25 U/L (11-82); Potassium 3.6 mmol/L (3.5-5.1); Sodium 139 mmol/L (136-145); Total Protein 7.3 gm/dl (6.0-8.3)
[2022-06-26 10:46] LABS: INR 1.2 (0.9-1.1); Prothrombin Time 12.9 Seconds (9.0-12.0)
--- NOTE | 2022-06-26 11:04 | Electrocardiogram Report ---
Test Reason : Blood Pressure : / mmHG Vent. Rate : 085 BPM Atrial Rate : 085 BPM P-R Int : 160 ms QRS Dur : 088 ms QT Int : 394 ms P-R-T Axes : 023 023 026 degrees QTc Int : 468 ms Normal sinus rhythm Early repolarization Nonspecific T wave abnormality When compared with ECG of 24-MAR-2022 14:50, Nonspecific T wave abnormality is new Confirmed by Qamar Correa ([id number]) on 06/26/2022 11:03:30 AM Referred By: REFERRED SELF Confirmed By:Qamar Correa
[2022-06-26 11:15] LABS: Appearance Urine Cloudy (Clear); Bacteria Urine Automated 2+ (Negative); Bilirubin Urine Negative (Negative); Blood Urine 1+ (Negative); Color Urine Yellow; Epithelial Cell Urine Auto 20-30 /lpf (0-5); Glucose Urine UA Negative (Negative); Ketones Urine Negative (Negative); Leukocyte Esterase Urine 3+ (Negative); Nitrite Urine Positive (Negative); Protein Urine Negative (Negative); Specific Gravity Urine 1.009 (1.000-1.030); Urobilinogen Urine Negative (Negative); WBC Urine Automated >30 /hpf (0-5); pH Urine 6.5 (4.5-7.5)
[2022-06-26 11:47] LABS: Influenza A virus by PCR Negative (Neg); Influenza B virus by PCR Negative (Neg); RSV by PCR Negative (Neg); SARS CoV2 RNA(COVID-19) Ceph NEGATIVE (Negative)
--- NOTE | 2022-06-26 13:02 | CT Scan Report ---
CT head/brain wo con CLINICAL HISTORY: 37 years-old Female with FRIED, [employer] shunt. Acute headache with a ventricular peritonea l shunt catheter TECHNIQUE: Multiple axial CT images of the head were obtained without contrast. A dose lowering tech nique was utilized adhering to the principles of ALARA. COMPARISON: Head CT 11/30/2020 FINDINGS: Midline developmental abnormalities are redemonstrated with low-lying cerebellar tonsils. Stable posi tioning of the right-sided ventriculostomy catheter with distal tip terminating within the right late ral ventricle. Decompressed ventricles. No acute intracranial hemorrhage, midline shift, abnormal ext ra axial collection, hydrocephalus or intracranial mass. No acute or subacute territorial infarct andrea ntified. 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 The calvarium is intact. Hyperostosis frontalis interna. Prior bilateral lens repair. The paranasal s inuses, mastoid air cells, and middle ear cavities are clear. IMPRESSION: 1. Stable findings as above without acute intracranial abnormality. 2. Unchanged positioning of the right frontal approach ventriculostomy catheter. 3. No hydrocephalus. ACT 112: Negative or not required by law. The above report was generated using voice recognition software. It may contain grammatical, syntax o r spelling errors. Electronically signed by: Scar Martino M.D. 06/26/2022 1:00 PM
[2022-06-26] MEDS ORDERED: LORazepam 2 MG/1 ML VIAL IV STA (13:06)
--- NOTE | 2022-06-26 13:33 | CT Scan Report ---
ABDOMEN AND PELVIS CT WITHOUT CONTRAST CT DOSE: 2853.65 mGy.cm HISTORY: Acute bilateral flank pain B/l flank pain TECHNIQUE: Multiaxial CT images of the abdomen and pelvis were performed without contrast. A dose lo wering technique was utilized adhering to the principles of ALARA. COMPARISON STUDY: 09/01/2020 FINDINGS: Chronic right pleural effusion with right pleural drainage catheter in place. Right greater left bibasilar consolidation is also similar to prior with trace left pleural effusion. No pneumatos is or pneumoperitoneum. Partially imaged catheter tip within the right atrium. The unenhanced spleen, pancreas and adrenal glands are unremarkable. Cholecystectomy. Liver is within normal limits. Mild cortical scarring of the superior pole right kidney. 4 mm nonobstructing calculu s of the inferior pole right kidney. Multifocal scarring of the left kidney with a few left-sided juliann al cysts again noted. 3 mm nonobstructing calculus of the interpolar left kidney. Mild dilation of th e left renal pelvis and proximal left ureter is similar to prior with mild urothelial thickening. Int erval postoperative changes of cystectomy with ileal conduit. IUD of the uterus. No abdominal aortic aneurysm. Prior partial colectomy with left lower quadrant colostomy. Moderate colonic fecal retentio n. Normal appendix. Prior partial small bowel resection in the abdominal right lower quadrant. No acu te fracture. 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 Demineral ized appearance the bones. Marked muscle atrophy suggestive of nonweightbearing status. IMPRESSION: 1. Bilateral nephrolithiasis without ureteral calculi. 2. Mild left-sided pelviectasis with urothelial thickening. Correlate with urinalysis to exclude infe ction. 3. No bowel obstruction or bowel wall thickening. 4. Unchanged right pleural effusion with right pleural drainage catheter and bibasilar opacities sugg estive of atelectasis. 5. Chronic and postoperative changes as above. ACT 112: Negative or not required by law. The above report was generated using voice recognition software. It may contain grammatical, syntax o r spelling errors. Electronically signed by: Scar Martino M.D. 06/26/2022 1:30 PM
[2022-06-26] MEDS ORDERED: FLUCONAZOLE 50 MG TAB PO ONE (13:38)
--- NOTE | 2022-06-26 14:30 | Pharmacy Report ---
ED Pharmacist Progress Note - ED Pharmacist Progress Note Date of Service:: June 26, 2022 Notes:: History / treatment considerations * Patient with complex PMH including but not limited to spina bifida, suprapubic catheter (previous removal of bladder), BMI of 42.4 kg/m2, and bilateral lower extremity amputation presented w concern for UTI * Patient is well-known to this institution - chronically colonized with Pseudomonas in history and [facility]. Urine samples are obtained via urine bag which is not ideal, but necessary * [facility]ached out [facility] and spoke w Dr. Weaver (simultaneously with ED provider Dr. Browning) - treatment may not be indicated based on normal WBC and absent fever, however will be dependent on results of CT scan * CT scan with possible UTI - treatment indicated Treatment options * Multiple allergies noted * Zosyn - per prior documentation, patient can tolerate Zosyn, but would need to pre-medicate with cetirizine 20 mg BID in addition to low dose prednisone, 10-20 mg/day for the duration of antibiotic course. However, I discussed allergy history with Connie and her mom, who both note that they strongly do not want steroids as her blood sugars are extraordinarily difficult to manage while on steroids. They both note she can likely tolerate Zosyn for the first ~5 days without steroids, but itchy rash may manifest after that time. This is consistent with Type IV hypersensitivity therefore avoidance if possible is reasonable. * Cefepime - Both deny a reaction history to cefepime * Tobramycin - Both note that tobramycin has been used in the past with success Assessment * High likelihood of Pseudomonas being isolated (although UA nitrite positive) and therefore with likely ongoing need to cover as an outpatient post- discharge (if admitted), in which case patient will likely need tobramycin as the only once-daily IV medication that is likely to cover * Cefepime could be considered if admitted as an initial alternative, although may complicate discharge if need to switch to tobramycin Recommendation * Duration of 7 days of effective therapy likely reasonable - will defer to ID * Outpatient - tobramycin * If admitted - cefepime or tobramycin initially. Early transition from cefepime to tobramycin recommended if Pseudomonas is isolated so level can be assessed as an inpatient prior to discharge. Will require a *minimum* of about 8 hours from tobramycin administration to earliest discharge time if level is to be assessed prior to discharge Tobramycin recommendations (if utilized) * Dosing weight considerations * Dose based on adjusted BW, which is calculated using IBW. * IBW somewhat difficult to calculate due to b/l LE amputation * Height in computer of 5'2" is estimated height prior to b/l LE amputation * Calculated IBW of 50.1 kg falsely elevated as b/l LE amputation not taken into consideration - likely lower than 50.1 kg * Calculated adjusted BW of 72.14 kg therefore also likely falsely elevated * Will estimate that true target for adjusted BW is actually closer to ~69 kg Tobramycin 480 mg IV q24h, initially * Pharmacy will follow and adjust if inpatient, but not outpatient * Initial monitoring: level 6-14 hours after the start of the first dose, assessed via Kimberly nomogram and adjusted if necessary * Ongoing monitoring: * SCr q1-3days * Repeat random tobramycin levels per above timing after any dose adjustment or if a change in renal function or change in clinical status occurs * Recheck random levels a minimum of q5-7days * Consider trough level monitoring 30 minutes prior to next scheduled dose if concerned for drug accumulation/toxicity
[2022-06-26] MEDS ORDERED: PHARMACY GLYCEMIC MGMT CONSULT PRN (15:34)
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
[2022-06-26] MEDS ORDERED: ALBUTEROL HFA 8 GM INHALER INH PRN (16:52)
[2022-06-26] MEDS ORDERED: LEVALBUTEROL HCL 0.63 MG/3 ML NEB INH PRN (16:52)
[2022-06-26] MEDS ORDERED: CETIRIZINE HCL 10 MG TABLET PO PRN (16:52)
[2022-06-26] MEDS: CEFEPIME 2,000 MG in SYRINGE 0 ML IV SCH ×2 (17:48→23:36)
[2022-06-26] MEDS: ADVANCED PROBIOTIC 1250 MG CAPSULE PO SCH (17:48)
[2022-06-26] MEDS: DAPTOmycin 500 MG in SYRINGE 0 ML IV SCH (17:49)
[2022-06-26] MEDS: INSULIN ASPART PER UNIT SC SCH ×2 (18:13→23:24)
[2022-06-26] MEDS ORDERED: GLUCOSE 40% GEL 15 GM TUBE PO PRN (18:41)
[2022-06-26] MEDS ORDERED: GLUCAGON FOR INJ 1 MG VIAL SQ PRN (18:41)
[2022-06-26] MEDS ORDERED: GLUCOSE 10 TAB/TUBE PO PRN (18:41)
[2022-06-26] MEDS ORDERED: DEXTROSE 50% 50 ML SYRINGE IV PRN (18:41)
[2022-06-26] MEDS ORDERED: CARBOHYDRATES FOR HYPOGLYCEMIA PO PRN (18:41)
[2022-06-26] MEDS: ACETAMINOPHEN 325 MG TAB PO PRN (19:12)
[2022-06-26] MEDS: clonazePAM 0.5 MG TAB PO SCH (20:48)
[2022-06-26] MEDS: DOCUSATE SODIUM 100 MG CAP PO SCH (20:50)
[2022-06-26] MEDS: FAMOTIDINE 40 MG TABLET PO SCH (20:50)
[2022-06-26] MEDS: MONTELUKAST SODIUM 10 MG TABLET PO SCH (20:50)
[2022-06-26] MEDS: CYCLOBENZAPRINE HCL 5 MG TAB PO PRN (20:50)
[2022-06-26] MEDS: PANTOprazole 40 MG TAB PO SCH (20:51)
[2022-06-26] MEDS: FLUTICASONE/VILANTEROL 200/25MCG 14 PUFFS/INHALER INH SCH (20:51)
[2022-06-26] MEDS: APIXABAN 5 MG TABLET PO SCH (20:51)
[2022-06-26] MEDS: traZODone HCL 100 MG TAB PO SCH (20:52)
[2022-06-26] MEDS: CYANOCOBALAMIN (B-12) 500 MCG TABLET PO SCH (20:52)
[2022-06-26] MEDS: DICYCLOMINE HCL 10 MG CAP PO SCH (20:53)
[2022-06-26] MEDS: ATENOLOL 50 MG TABLET PO SCH (20:54)
[2022-06-26] MEDS: CETIRIZINE HCL 10 MG TABLET PO SCH (20:54)
[2022-06-26] MEDS: NYSTATIN CR 15 GM TUBE EXT PRN (20:55)
[2022-06-26] MEDS: [UNRECOGNIZED DRUG - REMARK] PO SCH (20:56)
[2022-06-26] MEDS ORDERED: NON-FORMULARY MEDICATION (Insulin Aspart U-100 [Novolog Flexpen U-100 Insulin] 100 unit/mL SQ SCH (21:00)
[2022-06-26] MEDS ORDERED: NON-FORMULARY MEDICATION (Insulin Glargine [Lantus Solostar U-100 Insulin] 100 unit/mL (3 SQ SCH (21:00)
[2022-06-26] MEDS ORDERED: LANTUS PER UNIT CHARGE SQ SCH (21:00)
[2022-06-27] MEDS: INSULIN ASPART PER UNIT SC SCH ×4 (05:40→21:43)
[2022-06-27] MEDS: LEVOTHYROXINE SODIUM 100 MCG TABLET PO SCH (05:46)
--- NOTE | 2022-06-27 08:19 | Hospitalist Progress Note ---
Date of Service June 27, 2022 Assessment & Plan (1) UTI (urinary tract infection): Plan: 37-year-old female with complex medical hx - including history of spina bifida, bilateral below-knee amputations due to MRSA infection, wheelchair-bound, diabetes mellitus type 2, on insulin, morbid obesity, hypothyroidism, depression/bipolar disorder, chronic hypoxic hypercarbic respiratory failure, on 2 to 3 L of O2 via nasal cannula, BiPAP at night, s/p [employer] shunt , s/p cystectomy who presents with abdominal pain, flank pain. UA c/w UTI CT abd pelvis - shows urothelial thickening Patient has history of recurrent UTIs, underwent a cystectomy History of Enterococcus UTI in February 2022, patient was on daptomycin Previously history of Pseudomonas UTI Patient has allergy to multiple antibiotics Started on cefepime and daptomycin which patient reportedly does not have allergy to ID physician was contacted by ED We will follow-up on ID consult recommendation Urine culture obtained yesterday,shows 3 types of organisms - all high counts - will repeat Follow blood culture - negat. in 24 hrs Follow-up vaginal culture, patient received 1 dose of Diflucan in the ED Groin cellulitis Seen by PCP few days ago and was started on doxycycline -Hold doxycycline as patient is now on IV antibiotic -Continue to monitor, wound care nurse also consulted Loose ostomy output per patient -We will test for C. difficile - hold linzess DM2 on insulin -Lantus 50 units at bedtime, NovoLog 25 units 3 times daily -glycemic pharmacy consulted Hypothyroidism -Continue levothyroxine Chronic hypoxic, hypercarbic respiratory failure on oxygen/BiPAP at night Obesity hypoventilation syndrome, sleep apnea -Continue supplemental oxygen via nasal cannula, BiPAP at night Chronic conditions, including bipolar disorder, depression -Continue home meds Admission and Anticipated Discharge Date Admission Date: June 26, 2022 Subjective Patient seen in follow-up of her UTI Has complex medical history Urine culture obtained yesterday on admission, however high count of multiple bacteria, will repeat Currently laying in bed, in no acute distress Reports not feeling much better since yesterday Still reports abdominal/flank discomfort No fever, chills No chest pain shortness of breath, no nausea vomiting Review of Systems Review of Systems: All systems reviewed & are unremarkable except as noted in Subjective Physical Exam Physical Exam: Constitutional:L morbidly obese F i n NAD Eyes: PERRL, conjunctiva e normal, anicteri c sclerae ENMT: external ear and n ose normal, oropha rynx normal Neck: + thick neck Respiratory: normal respiratory effort, lungs faustina ar to auscultation (somewhat diminis hed breath sounds) Cardiovascular:L Rate/Rhythm: regul ar rate and regula r rhythm Chest (Breasts): Chest:+ port R upp er chest Gastrointestinal ( Abdomen): soft, obese, diffu sely mildly tender to palp., + ostom y (liquid output n oted), + urinary c atheter (yellow ur ine noted) Musculoskeletal: Extremities: + low er leg abnormality (b/l BKA) Skin: warm, dry (+ groin erythema) Neurologic: PERRL, EOMI, no fa ce palsy, no dysar thria Psychiatric: A+Ox3, euthymic af fect Genitourinary: + urinary cathete r Lymphatic: no lymphedema Results & Data Results & Data ([facility]) Vital Signs (Past 12 Hours) Vital Signs Temp Pulse Pulse Resp BP Pulse Ox O2 Del Method 06/27/22 07:27 36.5 C 85 18 109/62 91 Room Air 06/27/22 03:47 88 06/27/22 02:53 36.5 C 78 18 99/67 L 93 BiPAP 06/26/22 23:18 36.6 C 84 16 103/69 94 BiPAP Laboratory Results 06/27/22 06/27/22 06/26/22 Range/Units 07:12 05:35 23:20 WBC (4.8-10.8) K/ul RBC (3.93-5.22) M/uL Hgb (12.0-16.0) g/dl Hct (34.1-44.9) % MCV (80.0-100.0) fL MCH (25.0-34.0) pg MCHC (32.0-36.0) g/dL RDW Std Deviation (36.4-46.3) fL RDW Coeff of Neda (11.5-14.5) % Plt Count (130-400) K/uL MPV (9.4-12.3) fL Immature Gran % (Auto) % Neut % (Auto) % Lymph % (Auto) % [place] % (Auto) % Eos % (Auto) % Baso % (Auto) % Neut # (Auto) (1.4-6.5) K/uL Lymph # (Auto) (1.2-3.4) K/uL [place] # (Auto) (0.24-0.82) K/uL Eos # (Auto) (0-0.50) K/uL Baso # (Auto) (0-0.2) K/uL Immature Gran # (Auto) (0.00-0.02) K/uL PT (9.0-12.0) Seconds INR (0.9-1.1) Sodium (136-145) mmol/L Potassium (3.5-5.1) mmol/L Chloride (98-107) mmol/L Carbon Dioxide (21-32) mmol/L Anion Gap (3-11) BUN (6-23) mg/dl Creatinine (0.6-1.2) mg/dl Est Cr Clr Drug Dosing Est GFR ( Amer) ml/min Est GFR (Non-Af Amer) ml/min BUN/Creatinine Ratio (10-20) Glucose (70-99(Fasting)) mg/dl POC Glucose 197 H 161 H 185 H (70-99) mg/dl Calcium (8.5-10.1) mg/dl Total Bilirubin (0.2-1.0) mg/dl AST (13-39) U/L ALT (7-52) U/L Alkaline Phosphatase (34-104) U/L Total Protein (6.0-8.3) gm/dl Albumin (3.4-5.0) gm/dl Globulin (2.5-4.0) gm/dl Albumin/Globulin Ratio (0.9-2) Lipase (11-82) U/L Urine Color Urine Appearance (Clear) Urine pH (4.5-7.5) Ur Specific [place] (1.000-1.030) Urine Protein (Negative) Urine Glucose (UA) (Negative) Urine Ketones (Negative) Urine Blood (Negative) Urine Nitrite (Negative) Urine Bilirubin (Negative) Urine Urobilinogen (Negative) Ur Leukocyte Esterase (Negative) Urine WBC (Auto) (0-5) /hpf Urine RBC (Auto) (0-4) /hpf U Hyaline Cast (Auto) (0-5) /lpf U Epithel Cells (Auto) (0-5) /lpf Urine Bacteria (Auto) (Negative) SARS-CoV-2 (PCR) (Negative) Influenza Type A (PCR) (Neg) Influenza Type B (PCR) (Neg) RSV (RT-PCR) (Neg) 06/26/22 06/26/22 06/26/22 Range/Units 20:29 11:00 11:00 WBC (4.8-10.8) K/ul RBC (3.93-5.22) M/uL Hgb (12.0-16.0) g/dl Hct (34.1-44.9) % MCV (80.0-100.0) fL MCH (25.0-34.0) pg MCHC (32.0-36.0) g/dL RDW Std Deviation (36.4-46.3) fL RDW Coeff of Neda (11.5-14.5) % Plt Count (130-400) K/uL MPV (9.4-12.3) fL Immature Gran % (Auto) % Neut % (Auto) % Lymph % (Auto) % [place] % (Auto) % Eos % (Auto) % Baso % (Auto) % Neut # (Auto) (1.4-6.5) K/uL Lymph # (Auto) (1.2-3.4) K/uL [place] # (Auto) (0.24-0.82) K/uL Eos # (Auto) (0-0.50) K/uL Baso # (Auto) (0-0.2) K/uL Immature Gran # (Auto) (0.00-0.02) K/uL PT (9.0-12.0) Seconds INR (0.9-1.1) Sodium (136-145) mmol/L Potassium (3.5-5.1) mmol/L Chloride (98-107) mmol/L Carbon Dioxide (21-32) mmol/L Anion Gap (3-11) BUN (6-23) mg/dl Creatinine (0.6-1.2) mg/dl Est Cr Clr Drug Dosing Est GFR ( Amer) ml/min Est GFR (Non-Af Amer) ml/min BUN/Creatinine Ratio (10-20) Glucose (70-99(Fasting)) mg/dl POC Glucose 182 H (70-99) mg/dl Calcium (8.5-10.1) mg/dl Total Bilirubin (0.2-1.0) mg/dl AST (13-39) U/L ALT (7-52) U/L Alkaline Phosphatase (34-104) U/L Total Protein (6.0-8.3) gm/dl Albumin (3.4-5.0) gm/dl Globulin (2.5-4.0) gm/dl Albumin/Globulin Ratio (0.9-2) Lipase (11-82) U/L Urine Color Yellow Urine Appearance Cloudy A (Clear) Urine pH 6.5 (4.5-7.5) Ur Specific [place] 1.009 (1.000-1.030) Urine Protein Negative (Negative) Urine Glucose (UA) Negative (Negative) Urine Ketones Negative (Negative) Urine Blood 1+ H (Negative) Urine Nitrite Positive A (Negative) Urine Bilirubin Negative (Negative) Urine Urobilinogen Negative (Negative) Ur Leukocyte Esterase 3+ H (Negative) Urine WBC (Auto) >30 H (0-5) /hpf Urine RBC (Auto) 5-10 H (0-4) /hpf U Hyaline Cast (Auto) 10-30 H (0-5) /lpf U Epithel Cells (Auto) 20-30 H (0-5) /lpf Urine Bacteria (Auto) 2+ H (Negative) SARS-CoV-2 (PCR) NEGATIVE (Negative) Influenza Type A (PCR) Negative (Neg) Influenza Type B (PCR) Negative (Neg) RSV (RT-PCR) Negative (Neg) 06/26/22 06/26/22 06/26/22 Range/Units 10:10 10:10 10:10 WBC 7.38 (4.8-10.8) K/ul RBC 3.82 L (3.93-5.22) M/uL Hgb 11.9 L (12.0-16.0) g/dl Hct 38.0 (34.1-44.9) % MCV 99.5 (80.0-100.0) fL MCH 31.2 (25.0-34.0) pg MCHC 31.3 L (32.0-36.0) g/dL RDW Std Deviation 65.1 H (36.4-46.3) fL RDW Coeff of Neda 17.8 H (11.5-14.5) % Plt Count 258 (130-400) K/uL MPV 10.3 (9.4-12.3) fL Immature Gran % (Auto) 0.3 % Neut % (Auto) 65.1 % Lymph % (Auto) 26.4 % [place] % (Auto) 5.3 % Eos % (Auto) 2.6 % Baso % (Auto) 0.3 % Neut # (Auto) 4.81 (1.4-6.5) K/uL Lymph # (Auto) 1.95 (1.2-3.4) K/uL [place] # (Auto) 0.39 (0.24-0.82) K/uL Eos # (Auto) 0.19 (0-0.50) K/uL Baso # (Auto) 0.02 (0-0.2) K/uL Immature Gran # (Auto) 0.02 (0.00-0.02) K/uL PT 12.9 H (9.0-12.0) Seconds INR 1.2 H (0.9-1.1) Sodium 139 (136-145) mmol/L Potassium 3.6 (3.5-5.1) mmol/L Chloride 100 (98-107) mmol/L Carbon Dioxide 32 (21-32) mmol/L Anion Gap 7 (3-11) BUN 17 (6-23) mg/dl Creatinine 0.43 L (0.6-1.2) mg/dl Est Cr Clr Drug Dosing Not Reportable Est GFR ( Amer) > 150.0 ml/min Est GFR (Non-Af Amer) 131.8 ml/min BUN/Creatinine Ratio 39.5 H (10-20) Glucose 139 H (70-99(Fasting)) mg/dl POC Glucose (70-99) mg/dl Calcium 9.2 (8.5-10.1) mg/dl Total Bilirubin 0.4 (0.2-1.0) mg/dl AST 14 (13-39) U/L ALT 13 (7-52) U/L Alkaline Phosphatase 87 (34-104) U/L Total Protein 7.3 (6.0-8.3) gm/dl Albumin 3.4 (3.4-5.0) gm/dl Globulin 3.9 (2.5-4.0) gm/dl Albumin/Globulin Ratio 0.9 (0.9-2) Lipase 25 (11-82) U/L Urine Color Urine Appearance (Clear) Urine pH (4.5-7.5) Ur Specific [place] (1.000-1.030) Urine Protein (Negative) Urine Glucose (UA) (Negative) Urine Ketones (Negative) Urine Blood (Negative) Urine Nitrite (Negative) Urine Bilirubin (Negative) Urine Urobilinogen (Negative) Ur Leukocyte Esterase (Negative) Urine WBC (Auto) (0-5) /hpf Urine RBC (Auto) (0-4) /hpf U Hyaline Cast (Auto) (0-5) /lpf U Epithel Cells (Auto) (0-5) /lpf Urine Bacteria (Auto) (Negative) SARS-CoV-2 (PCR) (Negative) Influenza Type A (PCR) (Neg) Influenza Type B (PCR) (Neg) RSV (RT-PCR) (Neg) Medications Administered Current Inpatient Medications Acetaminophen (Acetaminophen 325 Mg Tab) 650 mg PO Q4H PRN PRN Reason: Pain or Fever Stop: 07/26/22 15:28 Last Admin: 06/26/22 19:12 Dose: 650 mg Albuterol (Albuterol Hfa 8 Gm Inhaler) 2 puffs INH Q6H PRN PRN Reason: Shortness Of Breath Or Wheezing Stop: 07/26/22 16:51 Apixaban (Apixaban 5 Mg Tablet) 5 mg PO BID [facility] Stop: 07/26/22 20:59 Last Admin: 06/26/22 20:51 Dose: 5 mg Atenolol (Atenolol 50 Mg Tablet) [address] [facility] Stop: 07/26/22 20:59 Last Admin: 06/26/22 20:54 Dose: 100 mg Cetirizine HCl (Cetirizine Hcl 10 Mg Tablet) 10 mg PO Q24H [facility] Stop: 07/26/22 22:59 Last Admin: 06/26/22 20:54 Dose: 10 mg Clonazepam (Clonazepam 0.5 Mg Tab) 0.5 mg PO [facility] Stop: 07/26/22 20:59 Last Admin: 06/26/22 20:48 Dose: 0.5 mg Cyanocobalamin (Cyanocobalamin (B-12) 500 Mcg Tablet) 1,000 mcg PO Q48H [facility] Stop: 07/26/22 08:59 Last Admin: 06/26/22 20:52 Dose: 1,000 mcg Cyclobenzaprine HCl (Cyclobenzaprine Hcl 5 Mg Tab) 5 mg PO TID PRN PRN Reason: muscle spasm Stop: 07/26/22 16:51 Last Admin: 06/26/22 20:50 Dose: 5 mg Dextrose (Dextrose 50% 50 Ml Syringe) 25 - 50 ml IV UD PRN; Protocol PRN Reason: Hypoglycemia Protocol Stop: 07/26/22 18:40 Dicyclomine HCl (Dicyclomine Hcl 10 Mg Cap) 20 mg PO BID [facility] Stop: 07/26/22 20:59 Last Admin: 06/26/22 20:53 Dose: 20 mg Divalproex Sodium (Divalproex Delay Release 500 Mg Tab) 1,500 mg PO QAM [facility] Stop: 07/27/22 08:59 Docusate Sodium (Docusate Sodium 100 Mg Cap) 100 mg PO BID [facility] Stop: 07/26/22 20:59 Last Admin: 06/26/22 20:50 Dose: 100 mg Famotidine (Famotidine 40 Mg Tablet) 40 mg PO HS [facility] Stop: 07/26/22 20:59 Last Admin: 06/26/22 20:50 Dose: 40 mg Fluticasone/Vilanterol (Fluticasone/Vilanterol 200/25mcg 14 Puffs/Inhaler) 1 puffs INH Q24H [facility]; Protocol Stop: 07/26/22 20:59 Last Admin: 06/26/22 20:51 Dose: 1 puffs Furosemide (Furosemide 40 Mg Tab) 40 mg PO QDD [facility] Stop: 07/27/22 16:29 Glucagon (Glucagon For Inj 1 Mg Vial) 1 mg SQ UD PRN; Protocol PRN Reason: Hypoglycemia Protocol Stop: 07/26/22 18:40 Glucose (Glucose 40% Gel 15 Gm Tube) 15 - 30 gm PO UD PRN; Protocol PRN Reason: Hypoglycemia Protocol Stop: 07/26/22 18:40 Glucose (Glucose 10 Tab/Tube) 4 - 8 tab PO UD PRN; Protocol PRN Reason: Hypoglycemia Treatment Stop: 07/26/22 18:40 Heparin Sodium (Porcine) (Heparin 100 Unit/Ml 5ml Flush) 5 ml FLUSH PRN PRN PRN Reason: Flush Stop: 07/27/22 00:19 Cefepime HCl 2,000 mg/ Syringe 20 mls @ 5 mls/min IV Q8H [facility]; Protocol Stop: 07/06/22 16:29 Last Admin: 06/26/22 23:36 Dose: 5 mls/min Daptomycin 500 mg/ Syringe 10 mls @ 5 mls/min IV Q24H [facility]; Protocol Stop: 07/06/22 17:29 Last Admin: 06/26/22 17:49 Dose: 5 mls/min Insulin Aspart (Insulin Aspart Per Unit) 0 units SC Q6 [facility] Stop: 07/26/22 17:59 Last Admin: 06/27/22 05:40 Dose: 2 units Insulin Glargine (Lantus Per Unit Charge) 35 units SQ ONE [facility] Stop: 07/26/22 20:59 Last Admin: 06/26/22 20:57 Dose: 35 units Lactobacillus Acidophilus (Advanced Probiotic 1250 Mg Capsule) 2 cap PO DAILY [facility] Stop: 07/26/22 16:59 Last Admin: 06/26/22 17:48 Dose: 2 cap Levalbuterol HCl (Levalbuterol Hcl 0.63 Mg/3 Ml Neb) 0.63 mg INH Q6H PRN; Protocol PRN Reason: Shortness Of Breath Or Wheezing Stop: 07/26/22 16:51 Levothyroxine Sodium (Levothyroxine Sodium 100 Mcg Tablet) 100 mcg PO DAILYBB [facility] Stop: 07/27/22 06:29 Last Admin: 06/27/22 05:46 Dose: 100 mcg Loratadine (Loratadine 10 Mg Tab) 20 mg PO QAM [facility] Stop: 07/27/22 08:59 Miscellaneous (Carbohydrates For Hypoglycemia ) 15 - 30 gm PO UD PRN PRN Reason: Hypoglycemia Protocol Stop: 07/26/22 18:40 Miscellaneous Information (Pharmacy Glycemic Mgmt Consult) 1 each N/A UD PRN; Protocol PRN Reason: Consult Stop: 07/26/22 15:33 Montelukast Sodium (Montelukast Sodium 10 Mg Tablet) 10 mg PO PM [facility] Stop: 07/26/22 20:59 Last Admin: 06/26/22 20:50 Dose: 10 mg Clorazepate [id number] Patient's Own Med 3.75 each PO TID@0700,1200,2100 [facility] Stop: 07/26/22 20:59 Last Admin: 06/26/22 20:56 Dose: 3.75 tab Brexpiprazole -Non- Form Patient's Own Med 1 each PO QAM [facility] Stop: 07/27/22 08:59 Loxapine- Non-Form (Patient's Own Med) 1 each PO QID PRN PRN Reason: Anxiety/hallucination Stop: 07/26/22 18:53 Nystatin (Nystatin Cr 15 Gm Tube) 1 appln EXT BID PRN PRN Reason: Skin Irritation Stop: 07/26/22 16:51 Last Admin: 06/26/22 20:55 Dose: 1 appln Pantoprazole Sodium (Pantoprazole 40 Mg Tab) 40 mg PO BID [facility] Stop: 07/26/22 20:59 Last Admin: 06/26/22 20:51 Dose: 40 mg Trazodone HCl (Trazodone Hcl 100 Mg Tab) 300 mg PO HS [facility] Stop: 07/26/22 20:59 Last Admin: 06/26/22 20:52 Dose: 300 mg Umeclidinium [place] (Umeclidinium [place] 62.5mcg/Blister 7 Puffs/Inhaler) [facility] [place] Protocol Stop: 07/27/22 08:59 Venlafaxine HCl (Venlafaxine Hcl Xr 75 Mg Capxr) 75 [facility] [place] Stop: 07/27/22 08:59 Venlafaxine HCl (Venlafaxine Hcl Xr 150 Mg Capxr) 150 [facility] [place] Stop: 07/27/22 08:59
[2022-06-27 08:48] LABS: Hematocrit (blood only) 35.9 % (34.1-44.9); Mean Corpuscular Hemoglobin 30.4 pg (25.0-34.0); Mean Corpuscular Hgb Conc 30.6 g/dL (32.0-36.0); Mean Corpuscular Volume 99.2 fL (80.0-100.0); Mean Platelet Volume 10.5 fL (9.4-12.3); Platelet Count 243 K/uL (130-400); RDW Coefficient of Variation 17.8 % (11.5-14.5); RDW Standard Deviation 64.9 fL (36.4-46.3); Red Blood Count 3.62 M/uL (3.93-5.22); White Blood Count 6.74 K/ul (4.8-10.8)
[2022-06-27] MEDS ORDERED: NON-FORMULARY MEDICATION (Riboflavin (Vitamin B2) 400 mg tablet) PO SCH (09:00)
[2022-06-27 09:17] LABS: Estimated Average Glucose 166 mg/dl; Hemoglobin A1C 7.4 % (4.5-5.6)
[2022-06-27] MEDS: PANTOprazole 40 MG TAB PO SCH ×2 (09:18→21:30)
[2022-06-27] MEDS: DICYCLOMINE HCL 10 MG CAP PO SCH ×2 (09:18→21:26)
[2022-06-27] MEDS: DOCUSATE SODIUM 100 MG CAP PO SCH ×2 (09:18→21:27)
[2022-06-27] MEDS: DIVALPROEX DELAY RELEASE 500 MG TAB PO SCH (09:19)
[2022-06-27] MEDS: VENLAFAXINE HCL XR 75 MG CAPXR PO SCH (09:19)
[2022-06-27] MEDS: LORATADINE 10 MG TAB PO SCH (09:19)
[2022-06-27] MEDS: VENLAFAXINE HCL XR 150 MG CAPXR PO SCH (09:19)
[2022-06-27] MEDS: UMECLIDINIUM BROMIDE 62.5MCG/BLISTER 7 PUFFS/INHALER INH SCH (09:20)
[2022-06-27] MEDS: [UNRECOGNIZED DRUG - REMARK] PO SCH (09:20)
[2022-06-27] MEDS: ADVANCED PROBIOTIC 1250 MG CAPSULE PO SCH (09:21)
[2022-06-27] MEDS: [UNRECOGNIZED DRUG - REMARK] PO SCH ×3 (09:21→21:29)
[2022-06-27] MEDS: APIXABAN 5 MG TABLET PO SCH ×2 (09:21→21:24)
[2022-06-27] MEDS: CEFEPIME 2,000 MG in SYRINGE 0 ML IV SCH ×2 (09:28→17:07)
[2022-06-27] MEDS ORDERED: Nursing to Pharmacy Communication SCH (09:30)
[2022-06-27 09:41] LABS: Alanine Aminotransferase 13 U/L (7-52); Albumin Globulin Ratio 0.9 (0.9-2); Albumin Level 3.2 gm/dl (3.4-5.0); Alkaline Phosphatase 86 U/L (34-104); Anion Gap 7 (3-11); Aspartate Aminotransferase 18 U/L (13-39); BUN Creatinine Ratio 34.1 (10-20); Bilirubin,Total 0.4 mg/dl (0.2-1.0); Blood Urea Nitrogen 15 mg/dl (6-23); Calcium 8.4 mg/dl (8.5-10.1); Carbon Dioxide 33 mmol/L (21-32); Chloride 99 mmol/L (98-107); Creatinine Clr Calc Pharmacy 211.1 ml/min; Est GFR (African American) > 150.0 ml/min; Est GFR (Non-African American) 130.8 ml/min; Globulin 3.6 gm/dl (2.5-4.0); Glucose 192 mg/dl (70-99(Fasting)); Magnesium 1.5 mg/dl (1.7-2.4); Phosphorus 4.1 mg/dl (2.5-4.9); Sodium 139 mmol/L (136-145); Total Protein 6.8 gm/dl (6.0-8.3)
--- NOTE | 2022-06-27 10:54 | Pharmacy Report ---
Pharmacy Glycemic Short Note 2 - Date of Service June 27, 2022 - Glycemic Short BSG Results (Last 24 hours): 06/26/22 06/26/22 06/27/22 20:29 23:20 05:35 Glucose POC Glucose 182 H 185 H 161 H 06/27/22 06/27/22 07:12 08:03 Glucose 192 H POC Glucose 197 H OUTPATIENT ANTIDIABETIC REGIMEN: * Lantus 50 units SC HS * Novolog 25 units SC AC * Trulicity 4.5 mg SC every * HbA1c: 7.4% (06/27/22) ASSESSMENT: * 37 yo F admitted last evening secondary to possible UTI. Pharmacy was consulted to assist with inpatient glycemic management. Patient is well known to our service. Was NPO last evening into this AM but now ordered and tolerating a diet. Currently on Cefepime + Daptomycin for UTI. * BSGs last evening were: 182-185 mg/dL. Received Novolog based on weight/stress of 2 as well as 35 units of Lantus (30% reduction from home dose). * Fasting BSG was 161 mg/dL this AM. Lunchtime BSG was 169 mg/dL. * Will tighten both carb ratio and correction factor with lunch. * Continue with current basal dosing for now. PLAN FOR INPATIENT GLYCEMIC CONTROL: * Hold outpatient Trulicity * Basal insulin * Lantus 35 units SC HS * Bolus insulin * NovoLog per scale ACHS or Q6hrs while NPO * Goal Range: Low 110 mg/dL - High 140 mg/dL * Correction Factor: 15 mg/dL/unit * Nutritional / Prandial insulin per carb ratio of 1 unit per 5 grams CHO consumed
[2022-06-27] MEDS: SODIUM CHLORIDE 0.9% 1000ML 1,000 ML IV SCH (13:34)
[2022-06-27] MEDS: MAGNESIUM OXIDE 400 MG TAB PO SCH (14:04)
[2022-06-27 14:07] LABS: Appearance Urine Cloudy (Clear); Bacteria Urine Automated Negative (Negative); Bilirubin Urine Negative (Negative); Blood Urine Negative (Negative); Color Urine Yellow; Epithelial Cell Urine Auto >30 /lpf (0-5); Glucose Urine UA Negative (Negative); Ketones Urine Negative (Negative); Leukocyte Esterase Urine 1+ (Negative); Nitrite Urine Negative (Negative); Protein Urine Negative (Negative); Specific Gravity Urine 1.013 (1.000-1.030); Urobilinogen Urine Negative (Negative)
[2022-06-27 14:21] LABS: Mucus Urine Present (None Prsent)
[2022-06-27] MEDS: DAPTOmycin 500 MG in SYRINGE 0 ML IV SCH (17:06)
[2022-06-27] MEDS: FUROSEMIDE 40 MG TAB PO SCH (18:01)
[2022-06-27 18:32] LABS: A calco-baum cmplx NotReported Not Detected (NotDetected); Bact fragilis Not Reported Not Detected (NotDetected); C auris Not Reported Not Detected (NotDetected); Calbicans Not Reported Not Detected (NotDetected); Candida glabrata Not Reported Not Detected (NotDetected); Candida krusei Not Reported Not Detected (NotDetected); Cneoformans/gatti Not Reported Not Detected (NotDetected); Cparapsilosis Not Reported Not Detected (NotDetected); Ctropicalis Not Reported Not Detected (NotDetected); E cloacae compx Not Reported Not Detected (NotDetected); Efaecalis Not Reported Not Detected (NotDetected); Efaecium Not Reported Not Detected (NotDetected); Enterobacterales Not Reported Not Detected (NotDetected); Escherichia coli Not Reported Not Detected (NotDetected); H influenzae Not Reported Not Detected (NotDetected); K aerogenes Not Reported Not Detected (NotDetected); Koxytoca Not Reported Not Detected (NotDetected); Kpneumoniae grp Not Reported Not Detected (NotDetected); Lmonocyt Not Reported Not Detected (NotDetected); N meningitidis Not Reported Not Detected (NotDetected); P aeruginosa Not Reported Not Detected (NotDetected); Proteus spp Not Reported Not Detected (NotDetected); Salmonella spp Not Reported Not Detected (NotDetected); Smarcescens Not Reported Not Detected (NotDetected); Staph lugdunensis Not Reported Not Detected (NotDetected); Staph spp. Not Reported DETECTED (NotDetected); Staphaureus Not Reported Not Detected (NotDetected); Staphepi Not Reported DETECTED (NotDetected); Stenmaltophilia Not Reported Not Detected (NotDetected); Strep agal(GrpB) Not Reported Not Detected (NotDetected); Strep pneum Not Reported Not Detected (NotDetected); Strep pyog (GrpA) Not Reported Not Detected (NotDetected); Strep spp Not Reported Not Detected (NotDetected)
[2022-06-27 19:52] LABS: Staphylococcus epidermidis DETECTED (NotDetected); Staphylococcus spp. DETECTED (NotDetected); mecAC Resistant Gene DETECTED (NotDetected)
[2022-06-27] MEDS: ATENOLOL 50 MG TABLET PO SCH (21:25)
[2022-06-27] MEDS: FAMOTIDINE 40 MG TABLET PO SCH (21:27)
[2022-06-27] MEDS: MONTELUKAST SODIUM 10 MG TABLET PO SCH (21:29)
[2022-06-27] MEDS: traZODone HCL 100 MG TAB PO SCH (21:31)
[2022-06-27] MEDS: clonazePAM 0.5 MG TAB PO SCH (21:40)
[2022-06-27] MEDS: FLUTICASONE/VILANTEROL 200/25MCG 14 PUFFS/INHALER INH SCH (21:42)
[2022-06-27] MEDS: LANTUS PER UNIT CHARGE SQ SCH (21:44)
[2022-06-27] MEDS: CETIRIZINE HCL 10 MG TABLET PO SCH (22:29)
[2022-06-28] MEDS: CEFEPIME 2,000 MG in SYRINGE 0 ML IV SCH ×4 (01:08→23:43)
[2022-06-28] MEDS: SODIUM CHLORIDE 0.9% 1000ML 1,000 ML IV SCH ×3 (01:09→23:43)
[2022-06-28] MEDS: [UNRECOGNIZED DRUG - REMARK] PO PRN ×2 (03:01→09:14)
[2022-06-28] MEDS: LEVOTHYROXINE SODIUM 100 MCG TABLET PO SCH (06:06)
[2022-06-28 06:47] LABS: Hematocrit (blood only) 33.7 % (34.1-44.9); Hemoglobin 10.4 g/dl (12.0-16.0); Mean Corpuscular Hemoglobin 30.8 pg (25.0-34.0); Mean Corpuscular Hgb Conc 30.9 g/dL (32.0-36.0); Mean Corpuscular Volume 99.7 fL (80.0-100.0); Mean Platelet Volume 10.2 fL (9.4-12.3); Platelet Count 238 K/uL (130-400); RDW Coefficient of Variation 17.6 % (11.5-14.5); Red Blood Count 3.38 M/uL (3.93-5.22); White Blood Count 5.96 K/ul (4.8-10.8)
[2022-06-28 07:34] LABS: Anion Gap 4 (3-11); Calcium 8.5 mg/dl (8.5-10.1); Carbon Dioxide 35 mmol/L (21-32); Chloride 100 mmol/L (98-107); Magnesium 1.7 mg/dl (1.7-2.4); Potassium 3.3 mmol/L (3.5-5.1); Sodium 139 mmol/L (136-145)
[2022-06-28 07:40] LABS: BUN Creatinine Ratio 31.7 (10-20); Blood Urea Nitrogen 13 mg/dl (6-23); Creatinine Clr Calc Pharmacy 229.6 ml/min; Est GFR (African American) > 150.0 ml/min; Est GFR (Non-African American) 133.9 ml/min; Glucose 147 mg/dl (70-99(Fasting)); Phosphorus 3.9 mg/dl (2.5-4.9)
[2022-06-28] MEDS ORDERED: POTASSIUM CHLORIDE PWD 20 MEQ PACK PO ONE (08:17)
--- NOTE | 2022-06-28 08:22 | Hospitalist Progress Note ---
Date of Service June 28, 2022 Assessment & Plan (1) UTI (urinary tract infection): Plan: 37 yo F with complex medical hx - including history of spina bifida, bilateral below-knee amputations due to MRSA infection, wheelchair-bound, diabetes mellitus type 2, on insulin, morbid obesity, hypothyroidism, depression/bipolar disorder, chronic hypoxic hypercarbic respiratory failure, on 2 to 3 L of O2 via nasal cannula, BiPAP at night, s/p RN DOCUMENTATION shunt , s/p cystectomy who presents with abdominal pain, flank pain. UA c/w UTI CT abd pelvis - shows urothelial thickening Patient has history of recurrent UTIs, underwent a cystectomy/Ileal conduit related UTI History of Enterococcus UTI in February 2022, patient was on daptomycin Previously history of Pseudomonas UTI Patient has allergy to multiple antibiotics Started on cefepime and daptomycin which patient reportedly does not have allergy to ID physician was contacted by ED ID consulted Urine culture obtained on admission, shows 3 types of organisms - all high counts - asked for speciation, after discussing with ID and repeated the collection Original urine cultx from admission - gram negative bacilli, probable Enterococcus Follow blood culture - 1 bottle coag negat. staph. Follow-up vaginal culture, patient received 1 dose of Diflucan in the ED Vaginal cultx -staph species ID consult (Dr. Barrett) RECOMMENDATIONS: - I agree w/ cefepime and daptomycin iv - Check CPK now and weekly while on daptomycin - Contact micro lab to speciate the multiple organisms w/ susceptibility - F/u blood cultures - Monitor patient closely. If the patient clinically deteriorates while on cefepime and daptomycin, consider switching cefepime to cefiderocol or zerbaxa. - Anticipate 10-14 days of abx therapy Groin cellulitis Seen by PCP few days ago and was started on doxycycline -Hold doxycycline as patient is now on IV antibiotic -Continue to monitor, wound care nurse also consulted Loose ostomy output per patient -test for C. difficile ordered but not collected - held linzess _> now no ostomy output -> resume linzess DM2 on insulin -Lantus 50 units at bedtime, NovoLog 25 units 3 times daily -glycemic pharmacy consulted Hypothyroidism -Continue levothyroxine Chronic hypoxic, hypercarbic respiratory failure on oxygen/BiPAP at night Obesity hypoventilation syndrome, sleep apnea -Continue supplemental oxygen via nasal cannula, BiPAP at night Chronic conditions, including bipolar disorder, depression -Continue home meds Admission and Anticipated Discharge Date Admission Date: June 26, 2022 Subjective Patient seen in follow-up of her UTI Has complex medical history Urine culture obtained on admission, - high count of multiple bacteria, asked for speciation after discussing w/ ID and also repeated the collection Currently laying in bed, in no acute distress Reports not feeling much better reports ostomy output slowed down - minimal output Still reports abdominal/flank discomfort No fever, chills No chest pain shortness of breath, no nausea vomiting Review of Systems Review of Systems: All systems reviewed & are unremarkable except as noted in Subjective Physical Exam Physical Exam: Constitutional:L morbidly obese F i n NAD Eyes: PERRL, conjunctiva e normal, anicteri c sclerae ENMT: external ear and n ose normal, oropha rynx normal Neck: + thick neck Respiratory: normal respiratory effort, lungs faustina ar to auscultation (somewhat diminis hed breath sounds) Cardiovascular:L Rate/Rhythm: regul ar rate and regula r rhythm Chest (Breasts): Chest:+ port R upp er chest Gastrointestinal ( Abdomen): soft, obese, diffu sely mildly tender to palp., + ostom y, + urinary perry ter (yellow urine noted) Musculoskeletal: Extremities: + low er leg abnormality (b/l BKA) Skin: warm, dry (+ groin erythema) Neurologic: PERRL, EOMI, no fa ce palsy, no dysar thria BPsychiatric: A+Ox3, euthymic af fect Genitourinary: + urinary cathete r Lymphatic: no lymphedema Results & Data Results & Data ([facility]) Vital Signs (Past 12 Hours) Vital Signs Temp Pulse Pulse Resp BP Pulse Ox O2 Del Method 06/28/22 04:11 36.8 C 82 20 84/54 L 94 BiPAP 06/27/22 21:00 Nasal Cannula, CPAP 06/27/22 21:56 91 H 06/27/22 22:00 36.6 C 92 H 18 90/61 L 92 BiPAP O2 Flow Rate 06/28/22 04:11 06/27/22 21:00 2 06/27/22 21:56 06/27/22 22:00 Laboratory Results 01/24/23 01/24/23 01/24/23 Range/Units 07:06 06:19 06:19 WBC 5.96 (4.8-10.8) K/ul RBC 3.38 L (3.93-5.22) M/uL Hgb 10.4 L (12.0-16.0) g/dl Hct 33.7 L (34.1-44.9) % MCV 99.7 (80.0-100.0) fL MCH 30.8 (25.0-34.0) pg MCHC 30.9 L (32.0-36.0) g/dL RDW Std Deviation 64.0 H (36.4-46.3) fL RDW Coeff of Neda 17.6 H (11.5-14.5) % Plt Count 238 (130-400) K/uL MPV 10.2 (9.4-12.3) fL Sodium 139 (136-145) mmol/L Potassium 3.3 L (3.5-5.1) mmol/L Chloride 100 (98-107) mmol/L Carbon Dioxide 35 H (21-32) mmol/L Anion Gap 4 (3-11) BUN 13 (6-23) mg/dl Creatinine 0.41 L (0.6-1.2) mg/dl Est Cr Clr Drug Dosing 229.6 ml/min Est GFR ( Amer) > 150.0 ml/min Est GFR (Non-Af Amer) 133.9 ml/min BUN/Creatinine Ratio 31.7 H (10-20) Glucose 147 H (70-99(Fasting)) mg/dl POC Glucose 148 H (70-99) mg/dl Estimat Average Glucose mg/dl Hemoglobin A1c (4.5-5.6) % Calcium 8.5 (8.5-10.1) mg/dl Phosphorus 3.9 (2.5-4.9) mg/dl Magnesium 1.7 (1.7-2.4) mg/dl Total Bilirubin (0.2-1.0) mg/dl AST (13-39) U/L ALT (7-52) U/L Alkaline Phosphatase (34-104) U/L Total Protein (6.0-8.3) gm/dl Albumin (3.4-5.0) gm/dl Globulin (2.5-4.0) gm/dl Albumin/Globulin Ratio (0.9-2) Urine Color Urine Appearance (Clear) Urine pH (4.5-7.5) Ur Specific [place] (1.000-1.030) Urine Protein (Negative) Urine Glucose (UA) (Negative) Urine Ketones (Negative) Urine Blood (Negative) Urine Nitrite (Negative) Urine Bilirubin (Negative) Urine Urobilinogen (Negative) Ur Leukocyte Esterase (Negative) Urine WBC (Auto) (0-5) /hpf Urine RBC (Auto) (0-4) /hpf U Hyaline Cast (Auto) (0-5) /lpf U Epithel Cells (Auto) (0-5) /lpf Urine Bacteria (Auto) (Negative) Ur Renal Epithelial Cell Urine Crystals Urine Mucus (None Prsent) Urine Yeast Staphylococcus sp PCR (NotDetected) mecA/C-Methicil Resis Gene (NotDetected) Staph epidermidis (PCR) (NotDetected) Bld Cult ID Panel PCR (NotDetected) 06/27/22 06/27/22 06/27/22 Range/Units 23:11 20:11 16:20 WBC (4.8-10.8) K/ul RBC (3.93-5.22) M/uL Hgb (12.0-16.0) g/dl Hct (34.1-44.9) % MCV (80.0-100.0) fL MCH (25.0-34.0) pg MCHC (32.0-36.0) g/dL RDW Std Deviation (36.4-46.3) fL RDW Coeff of Neda (11.5-14.5) % Plt Count (130-400) K/uL MPV (9.4-12.3) fL Sodium (136-145) mmol/L Potassium (3.5-5.1) mmol/L Chloride (98-107) mmol/L Carbon Dioxide (21-32) mmol/L Anion Gap (3-11) BUN (6-23) mg/dl Creatinine (0.6-1.2) mg/dl Est Cr Clr Drug Dosing ml/min Est GFR ( Amer) ml/min Est GFR (Non-Af Amer) ml/min BUN/Creatinine Ratio (10-20) Glucose (70-99(Fasting)) mg/dl POC Glucose 221 H 164 H 180 H (70-99) mg/dl Estimat Average Glucose mg/dl Hemoglobin A1c (4.5-5.6) % Calcium (8.5-10.1) mg/dl Phosphorus (2.5-4.9) mg/dl Magnesium (1.7-2.4) mg/dl Total Bilirubin (0.2-1.0) mg/dl AST (13-39) U/L ALT (7-52) U/L Alkaline Phosphatase (34-104) U/L Total Protein (6.0-8.3) gm/dl Albumin (3.4-5.0) gm/dl Globulin (2.5-4.0) gm/dl Albumin/Globulin Ratio (0.9-2) Urine Color Urine Appearance (Clear) Urine pH (4.5-7.5) Ur Specific [place] (1.000-1.030) Urine Protein (Negative) Urine Glucose (UA) (Negative) Urine Ketones (Negative) Urine Blood (Negative) Urine Nitrite (Negative) Urine Bilirubin (Negative) Urine Urobilinogen (Negative) Ur Leukocyte Esterase (Negative) Urine WBC (Auto) (0-5) /hpf Urine RBC (Auto) (0-4) /hpf U Hyaline Cast (Auto) (0-5) /lpf U Epithel Cells (Auto) (0-5) /lpf Urine Bacteria (Auto) (Negative) Ur Renal Epithelial Cell Urine Crystals Urine Mucus (None Prsent) Urine Yeast Staphylococcus sp PCR (NotDetected) mecA/C-Methicil Resis Gene (NotDetected) Staph epidermidis (PCR) (NotDetected) Bld Cult ID Panel PCR (NotDetected) 06/27/22 06/27/22 06/27/22 Range/Units 13:47 11:14 08:03 WBC (4.8-10.8) K/ul RBC (3.93-5.22) M/uL Hgb (12.0-16.0) g/dl Hct (34.1-44.9) % MCV (80.0-100.0) fL MCH (25.0-34.0) pg MCHC (32.0-36.0) g/dL RDW Std Deviation (36.4-46.3) fL RDW Coeff of Neda (11.5-14.5) % Plt Count (130-400) K/uL MPV (9.4-12.3) fL Sodium (136-145) mmol/L Potassium (3.5-5.1) mmol/L Chloride (98-107) mmol/L Carbon Dioxide (21-32) mmol/L Anion Gap (3-11) BUN (6-23) mg/dl Creatinine (0.6-1.2) mg/dl Est Cr Clr Drug Dosing ml/min Est GFR ( Amer) ml/min Est GFR (Non-Af Amer) ml/min BUN/Creatinine Ratio (10-20) Glucose (70-99(Fasting)) mg/dl POC Glucose 169 H (70-99) mg/dl Estimat Average Glucose 166 mg/dl Hemoglobin A1c 7.4 H (4.5-5.6) % Calcium (8.5-10.1) mg/dl Phosphorus (2.5-4.9) mg/dl Magnesium (1.7-2.4) mg/dl Total Bilirubin (0.2-1.0) mg/dl AST (13-39) U/L ALT (7-52) U/L Alkaline Phosphatase (34-104) U/L Total Protein (6.0-8.3) gm/dl Albumin (3.4-5.0) gm/dl Globulin (2.5-4.0) gm/dl Albumin/Globulin Ratio (0.9-2) Urine Color Yellow Urine Appearance Cloudy A (Clear) Urine pH 6.0 (4.5-7.5) Ur Specific [place] 1.013 (1.000-1.030) Urine Protein Negative (Negative) Urine Glucose (UA) Negative (Negative) Urine Ketones Negative (Negative) Urine Blood Negative (Negative) Urine Nitrite Negative (Negative) Urine Bilirubin Negative (Negative) Urine Urobilinogen Negative (Negative) Ur Leukocyte Esterase 1+ H (Negative) Urine WBC (Auto) 10-30 H (0-5) /hpf Urine RBC (Auto) 5-10 H (0-4) /hpf U Hyaline Cast (Auto) 1-5 (0-5) /lpf U Epithel Cells (Auto) >30 H (0-5) /lpf Urine Bacteria (Auto) Negative (Negative) Ur Renal Epithelial Cell Not Reportable Urine Crystals Not Reportable Urine Mucus Present A (None Prsent) Urine Yeast Not Reportable Staphylococcus sp PCR (NotDetected) mecA/C-Methicil Resis Gene (NotDetected) Staph epidermidis (PCR) (NotDetected) Bld Cult ID Panel PCR (NotDetected) 06/27/22 06/27/22 06/26/22 Range/Units 08:03 08:03 14:13 WBC 6.74 (4.8-10.8) K/ul RBC 3.62 L (3.93-5.22) M/uL Hgb 11.0 L (12.0-16.0) g/dl Hct 35.9 (34.1-44.9) % MCV 99.2 (80.0-100.0) fL MCH 30.4 (25.0-34.0) pg MCHC 30.6 L (32.0-36.0) g/dL RDW Std Deviation 64.9 H (36.4-46.3) fL RDW Coeff of Neda 17.8 H (11.5-14.5) % Plt Count 243 (130-400) K/uL MPV 10.5 (9.4-12.3) fL Sodium 139 (136-145) mmol/L Potassium 4.0 (3.5-5.1) mmol/L Chloride 99 (98-107) mmol/L Carbon Dioxide 33 H (21-32) mmol/L Anion Gap 7 (3-11) BUN 15 (6-23) mg/dl Creatinine 0.44 L (0.6-1.2) mg/dl Est Cr Clr Drug Dosing 211.1 ml/min Est GFR ( Amer) > 150.0 ml/min Est GFR (Non-Af Amer) 130.8 ml/min BUN/Creatinine Ratio 34.1 H (10-20) Glucose 192 H (70-99(Fasting)) mg/dl POC Glucose (70-99) mg/dl Estimat Average Glucose mg/dl Hemoglobin A1c (4.5-5.6) % Calcium 8.4 L (8.5-10.1) mg/dl Phosphorus 4.1 (2.5-4.9) mg/dl Magnesium 1.5 L (1.7-2.4) mg/dl Total Bilirubin 0.4 (0.2-1.0) mg/dl AST 18 (13-39) U/L ALT 13 (7-52) U/L Alkaline Phosphatase 86 (34-104) U/L Total Protein 6.8 (6.0-8.3) gm/dl Albumin 3.2 L (3.4-5.0) gm/dl Globulin 3.6 (2.5-4.0) gm/dl Albumin/Globulin Ratio 0.9 (0.9-2) Urine Color Urine Appearance (Clear) Urine pH (4.5-7.5) Ur Specific [place] (1.000-1.030) Urine Protein (Negative) Urine Glucose (UA) (Negative) Urine Ketones (Negative) Urine Blood (Negative) Urine Nitrite (Negative) Urine Bilirubin (Negative) Urine Urobilinogen (Negative) Ur Leukocyte Esterase (Negative) Urine WBC (Auto) (0-5) /hpf Urine RBC (Auto) (0-4) /hpf U Hyaline Cast (Auto) (0-5) /lpf U Epithel Cells (Auto) (0-5) /lpf Urine Bacteria (Auto) (Negative) Ur Renal Epithelial Cell Urine Crystals Urine Mucus (None Prsent) Urine Yeast Staphylococcus sp PCR DETECTED A (NotDetected) mecA/C-Methicil Resis Gene DETECTED A (NotDetected) Staph epidermidis (PCR) DETECTED A (NotDetected) Bld Cult ID Panel PCR See PCR Comment (NotDetected) Medications Administered Current Inpatient Medications Acetaminophen (Acetaminophen 325 Mg Tab) 650 mg PO Q4H PRN PRN Reason: Pain or Fever Stop: 07/26/22 15:28 Last Admin: 06/26/22 19:12 Dose: 650 mg Albuterol (Albuterol Hfa 8 Gm Inhaler) 2 puffs INH Q6H PRN PRN Reason: Shortness Of Breath Or Wheezing Stop: 07/26/22 16:51 Apixaban (Apixaban 5 Mg Tablet) 5 mg PO BID [facility] Stop: 07/26/22 20:59 Last Admin: 06/27/22 21:24 Dose: 5 mg Atenolol (Atenolol 50 Mg Tablet) 100 mg PO HS [facility] Stop: 07/26/22 20:59 Last Admin: 06/27/22 21:25 Dose: 100 mg Cetirizine HCl (Cetirizine Hcl 10 Mg Tablet) 10 mg PO Q24H [facility] Stop: 07/26/22 22:59 Last Admin: 06/27/22 22:29 Dose: 10 mg Clonazepam (Clonazepam 0.5 Mg Tab) 0.5 mg PO HS [facility] Stop: 07/26/22 20:59 Last Admin: 06/27/22 21:40 Dose: 0.5 mg Cyanocobalamin (Cyanocobalamin (B-12) 500 Mcg Tablet) 1,000 mcg PO Q48H [facility] Stop: 07/26/22 08:59 Last Admin: 06/26/22 20:52 Dose: 1,000 mcg Cyclobenzaprine HCl (Cyclobenzaprine Hcl 5 Mg Tab) 5 mg PO TID PRN PRN Reason: muscle spasm Stop: 07/26/22 16:51 Last Admin: 06/26/22 20:50 Dose: 5 mg Dextrose (Dextrose 50% 50 Ml Syringe) 25 - 50 ml IV UD PRN; Protocol PRN Reason: Hypoglycemia Protocol Stop: 07/26/22 18:40 Dicyclomine HCl (Dicyclomine Hcl 10 Mg Cap) 20 mg PO BID [facility] Stop: 07/26/22 20:59 Last Admin: 06/27/22 21:26 Dose: 20 mg Divalproex Sodium (Divalproex Delay Release 500 Mg Tab) 1,500 mg PO QAM [facility] Stop: 07/27/22 08:59 Last Admin: 06/27/22 09:19 Dose: 1,500 mg Docusate Sodium (Docusate Sodium 100 Mg Cap) 100 mg PO BID [place] Stop: 07/26/22 20:59 Last Admin: 06/27/22 21:27 Dose: 100 mg Famotidine (Famotidine 40 Mg Tablet) 40 mg PO HS [facility] Stop: 07/26/22 20:59 Last Admin: 06/27/22 21:27 Dose: 40 mg Fluticasone/Vilanterol (Fluticasone/Vilanterol 200/25mcg 14 Puffs/Inhaler) 1 puffs INH Q24H [facility]; Protocol Stop: 07/26/22 20:59 Last Admin: 06/27/22 21:42 Dose: 1 puffs Furosemide (Furosemide 40 Mg Tab) 40 mg PO QDD [facility] Stop: 07/27/22 16:29 Last Admin: 06/27/22 18:01 Dose: 40 mg Glucagon (Glucagon For Inj 1 Mg Vial) 1 mg SQ UD PRN; Protocol PRN Reason: Hypoglycemia Protocol Stop: 07/26/22 18:40 Glucose (Glucose 40% Gel 15 Gm Tube) 15 - 30 gm PO UD PRN; Protocol PRN Reason: Hypoglycemia Protocol Stop: 07/26/22 18:40 Glucose (Glucose 10 Tab/Tube) 4 - 8 tab PO UD PRN; Protocol PRN Reason: Hypoglycemia Treatment Stop: 07/26/22 18:40 Heparin Sodium (Porcine) (Heparin 100 Unit/Ml 5ml Flush) 5 ml FLUSH PRN PRN PRN Reason: Flush Stop: 07/27/22 00:19 Cefepime HCl 2,000 mg/ Syringe 20 mls @ 5 mls/min IV Q8H [facility]; Protocol Stop: 07/06/22 16:29 Last Admin: 06/28/22 01:08 Dose: 5 mls/min Daptomycin 500 mg/ Syringe 10 mls @ 5 mls/min IV Q24H [facility]; Protocol Stop: 07/06/22 17:29 Last Admin: 06/27/22 17:06 Dose: 5 mls/min Sodium Chloride (Nss 1000ml) 1,000 mls @ 80 mls/hr IV .[id number] [facility] Stop: 07/27/22 12:29 Last Admin: 06/28/22 01:09 Dose: 80 mls/hr Insulin Aspart (Insulin Aspart Per Unit) 0 units SC ACHS [facility]; Protocol Stop: 07/26/22 17:59 Last Admin: 06/27/22 21:43 Dose: 2 units Insulin Glargine (Lantus Per Unit Charge) 35 units SQ HS [facility]; Protocol Stop: 07/27/22 20:59 Last Admin: 06/27/22 21:44 Dose: 35 units Lactobacillus Acidophilus (Advanced Probiotic 1250 Mg Capsule) 2 cap PO DAILY [facility] Stop: 07/26/22 16:59 Last Admin: 06/27/22 09:21 Dose: 2 cap Levalbuterol HCl (Levalbuterol Hcl 0.63 Mg/3 Ml Neb) 0.63 mg INH Q6H PRN; Protocol PRN Reason: Shortness Of Breath Or Wheezing Stop: 07/26/22 16:51 Levothyroxine Sodium (Levothyroxine Sodium 100 Mcg Tablet) 100 mcg PO DAILYBB [facility] Stop: 07/27/22 06:29 Last Admin: 06/28/22 06:06 Dose: 100 mcg Loratadine (Loratadine 10 Mg Tab) 20 mg PO QAM [facility] Stop: 07/27/22 08:59 Last Admin: 06/27/22 09:19 Dose: 20 mg Magnesium Oxide (Magnesium Oxide 400 Mg Tab) [facility] Stop: 07/27/22 12:29 Last Admin: 06/27/22 14:04 Dose: 400 mg Miscellaneous (Carbohydrates For Hypoglycemia ) 15 - 30 gm PO UD PRN PRN Reason: Hypoglycemia Protocol Stop: 07/26/22 18:40 Miscellaneous Information (Pharmacy Glycemic Mgmt Consult) 1 each N/A UD PRN; Protocol PRN Reason: Consult Stop: 07/26/22 15:33 Montelukast Sodium (Montelukast Sodium 10 Mg Tablet) 10 mg PO PM [facility] Stop: 07/26/22 20:59 Last Admin: 06/27/22 21:29 Dose: 10 mg Clorazepate [id number] Patient's Own Med 3.75 each PO TID@0700,1200,2100 [facility] Stop: 07/26/22 20:59 Last Admin: 06/27/22 21:29 Dose: 1 tab Brexpiprazole -Non- Form Patient's Own Med 1 each PO QAM [facility] Stop: 07/27/22 08:59 Last Admin: 06/27/22 09:20 Dose: 1 tabs Loxapine- Non-Form (Patient's Own Med) 1 each PO QID PRN PRN Reason: Anxiety/hallucination Stop: 07/26/22 18:53 Last Admin: 06/28/22 03:01 Dose: 1 tab Nystatin (Nystatin Cr 15 Gm Tube) 1 appln EXT BID PRN PRN Reason: Skin Irritation Stop: 07/26/22 16:51 Last Admin: 06/26/22 20:55 Dose: 1 appln Pantoprazole Sodium (Pantoprazole 40 Mg Tab) 40 mg PO BID [facility] Stop: 07/26/22 20:59 Last Admin: 06/27/22 21:30 Dose: 40 mg Trazodone HCl (Trazodone Hcl 100 Mg Tab) 300 mg PO HS [facility] Stop: 07/26/22 20:59 Last Admin: 06/27/22 21:31 Dose: 300 mg Umeclidinium [place] (Umeclidinium [place] 62.5mcg/Blister 7 Puffs/Inhaler) [facility]; Protocol Stop: 07/27/22 08:59 Last Admin: 06/27/22 09:20 Dose: 1 puffs Venlafaxine HCl (Venlafaxine Hcl Xr 75 Mg Capxr) 75 mg PO QAM [facility] Stop: 07/27/22 08:59 Last Admin: 06/27/22 09:19 Dose: 75 mg Venlafaxine HCl (Venlafaxine Hcl Xr 150 Mg Capxr) 150 mg PO QAM [facility] Stop: 07/27/22 08:59 Last Admin: 06/27/22 09:19 Dose: 150 mg
[2022-06-28] MEDS: VENLAFAXINE HCL XR 75 MG CAPXR PO SCH (09:16)
[2022-06-28] MEDS: PANTOprazole 40 MG TAB PO SCH ×2 (09:16→19:55)
[2022-06-28] MEDS: CYANOCOBALAMIN (B-12) 500 MCG TABLET PO SCH (09:16)
[2022-06-28] MEDS: MAGNESIUM OXIDE 400 MG TAB PO SCH (09:16)
[2022-06-28] MEDS: DICYCLOMINE HCL 10 MG CAP PO SCH ×2 (09:17→19:55)
[2022-06-28] MEDS: DOCUSATE SODIUM 100 MG CAP PO SCH ×2 (09:18→19:55)
[2022-06-28] MEDS: DIVALPROEX DELAY RELEASE 500 MG TAB PO SCH (09:19)
[2022-06-28] MEDS: APIXABAN 5 MG TABLET PO SCH ×2 (09:19→19:55)
[2022-06-28] MEDS: [UNRECOGNIZED DRUG - REMARK] PO SCH (09:19)
[2022-06-28] MEDS: ADVANCED PROBIOTIC 1250 MG CAPSULE PO SCH (09:19)
[2022-06-28] MEDS: [UNRECOGNIZED DRUG - REMARK] PO SCH ×3 (09:19→19:55)
[2022-06-28] MEDS: UMECLIDINIUM BROMIDE 62.5MCG/BLISTER 7 PUFFS/INHALER INH SCH (09:20)
[2022-06-28] MEDS: INSULIN ASPART PER UNIT SC SCH ×4 (09:47→22:12)
[2022-06-28] MEDS: LORATADINE 10 MG TAB PO SCH (10:09)
[2022-06-28] MEDS: VENLAFAXINE HCL XR 150 MG CAPXR PO SCH (10:09)
[2022-06-28] MEDS: LINACLOTIDE 145 MCG CAPSULE PO SCH (12:41)
[2022-06-28] MEDS: ACETAMINOPHEN 325 MG TAB PO PRN ×2 (12:48→17:22)
[2022-06-28] MEDS ORDERED: POTASSIUM CHLORIDE CRTAB 20 MEQ TABCR PO STA (16:51)
[2022-06-28] MEDS: FUROSEMIDE 40 MG TAB PO SCH (17:12)
[2022-06-28] MEDS: DAPTOmycin 500 MG in SYRINGE 0 ML IV SCH (17:12)
[2022-06-28] MEDS: MONTELUKAST SODIUM 10 MG TABLET PO SCH (19:54)
[2022-06-28] MEDS: traZODone HCL 100 MG TAB PO SCH (19:54)
[2022-06-28] MEDS: FAMOTIDINE 40 MG TABLET PO SCH (19:55)
[2022-06-28] MEDS: ATENOLOL 50 MG TABLET PO SCH (19:55)
[2022-06-28] MEDS: clonazePAM 0.5 MG TAB PO SCH (19:55)
[2022-06-28] MEDS: CETIRIZINE HCL 10 MG TABLET PO SCH (19:55)
[2022-06-28] MEDS: FLUTICASONE/VILANTEROL 200/25MCG 14 PUFFS/INHALER INH SCH (19:58)
[2022-06-28] MEDS: LANTUS PER UNIT CHARGE SQ SCH (22:12)
[2022-06-29] MEDS: LEVOTHYROXINE SODIUM 100 MCG TABLET PO SCH (05:46)
[2022-06-29] MEDS: [UNRECOGNIZED DRUG - REMARK] PO SCH ×3 (05:46→20:53)
[2022-06-29] MEDS: UMECLIDINIUM BROMIDE 62.5MCG/BLISTER 7 PUFFS/INHALER INH SCH (08:22)
[2022-06-29 08:23] LABS: Hematocrit (blood only) 34.5 % (34.1-44.9); Hemoglobin 10.8 g/dl (12.0-16.0); Mean Corpuscular Hemoglobin 30.8 pg (25.0-34.0); Mean Corpuscular Hgb Conc 31.3 g/dL (32.0-36.0); Mean Corpuscular Volume 98.3 fL (80.0-100.0); Mean Platelet Volume 10.3 fL (9.4-12.3); Platelet Count 234 K/uL (130-400); RDW Coefficient of Variation 17.6 % (11.5-14.5); RDW Standard Deviation 64.1 fL (36.4-46.3); Red Blood Count 3.51 M/uL (3.93-5.22); White Blood Count 6.32 K/ul (4.8-10.8)
[2022-06-29] MEDS: [UNRECOGNIZED DRUG - REMARK] PO SCH (08:23)
[2022-06-29] MEDS: [UNRECOGNIZED DRUG - REMARK] PO PRN (08:23)
[2022-06-29] MEDS: NYSTATIN POWDER 15GM BTL EXT PRN (08:23)
[2022-06-29] MEDS: VENLAFAXINE HCL XR 75 MG CAPXR PO SCH (08:33)
[2022-06-29] MEDS: LINACLOTIDE 145 MCG CAPSULE PO SCH (08:33)
[2022-06-29] MEDS: VENLAFAXINE HCL XR 150 MG CAPXR PO SCH (08:33)
[2022-06-29] MEDS: DOCUSATE SODIUM 100 MG CAP PO SCH ×2 (08:33→20:58)
[2022-06-29] MEDS: MAGNESIUM OXIDE 400 MG TAB PO SCH (08:34)
[2022-06-29] MEDS: LORATADINE 10 MG TAB PO SCH (08:34)
[2022-06-29] MEDS: ADVANCED PROBIOTIC 1250 MG CAPSULE PO SCH (08:34)
[2022-06-29] MEDS: DIVALPROEX DELAY RELEASE 500 MG TAB PO SCH (08:34)
[2022-06-29] MEDS: PANTOprazole 40 MG TAB PO SCH ×2 (08:35→20:58)
[2022-06-29] MEDS: APIXABAN 5 MG TABLET PO SCH ×2 (08:35→20:58)
[2022-06-29] MEDS: DICYCLOMINE HCL 10 MG CAP PO SCH ×2 (08:35→20:58)
[2022-06-29 08:40] LABS: Anion Gap 6 (3-11); Calcium 8.9 mg/dl (8.5-10.1); Carbon Dioxide 31 mmol/L (21-32); Chloride 101 mmol/L (98-107); Creatinine Clr Calc Pharmacy 254.3 ml/min; Est GFR (African American) > 150.0 ml/min; Est GFR (Non-African American) 138.5 ml/min; Glucose 173 mg/dl (70-99(Fasting)); Potassium 3.4 mmol/L (3.5-5.1); Sodium 138 mmol/L (136-145)
[2022-06-29] MEDS: CEFEPIME 2,000 MG in SYRINGE 0 ML IV SCH ×3 (09:00→23:18)
[2022-06-29] MEDS: INSULIN ASPART PER UNIT SC SCH ×4 (09:00→20:57)
[2022-06-29 11:18] LABS: BUN Creatinine Ratio 32.4 (10-20); Blood Urea Nitrogen 12 mg/dl (6-23)
[2022-06-29 11:28] LABS: Creatine Kinase < 10 U/L (26-192)
[2022-06-29] MEDS ORDERED: POTASSIUM CHLORIDE CRTAB 20 MEQ TABCR PO ONE (12:45)
[2022-06-29] MEDS: SODIUM CHLORIDE 0.9% 1000ML 1,000 ML IV SCH ×2 (13:14→23:18)
--- NOTE | 2022-06-29 13:48 | Pharmacy Report ---
Pharmacy Glycemic Short Note 2 - Date of Service June 29, 2022 - Glycemic Short BSG Results (Last 24 hours): 06/28/22 06/28/22 06/29/22 16:27 21:35 08:04 Glucose 173 H POC Glucose 209 H 240 H 06/29/22 06/29/22 08:34 12:20 Glucose POC Glucose 179 H 219 H OUTPATIENT ANTIDIABETIC REGIMEN: * Lantus 50 units SC HS * Novolog 25 units SC AC * Trulicity 4.5 mg SC every * HbA1c: 7.4% (06/27/22) ASSESSMENT: 06/29: * Connie received a total of 90 units of insulin yesterday, 35 units basal + 55 units bolus. BSGs were [phone] mg/dL. * Fasting BSG was up to 179 mg/dL this AM. Will increase basal by 30% tonight. * Given postprandial hyperglycemia yesterday as well as today at lunch, will tighten Novolog parameters. 06/28: * 37 yo F admitted last evening secondary to possible UTI. Pharmacy was consulted to assist with inpatient glycemic management. Patient is well known to our service. Was NPO last evening into this AM but now ordered and tolerating a diet. Currently on Cefepime + Daptomycin for UTI. * BSGs last evening were: 182-185 mg/dL. Received Novolog based on weight/stress of 2 as well as 35 units of Lantus (30% reduction from home dose). * Fasting BSG was 161 mg/dL this AM. Lunchtime BSG was 169 mg/dL. * Will tighten both carb ratio and correction factor with lunch. * Continue with current basal dosing for now. PLAN FOR INPATIENT GLYCEMIC CONTROL: * Hold outpatient Trulicity * Basal insulin * Lantus 45 units SC HS * Bolus insulin * NovoLog per scale ACHS or Q6hrs while NPO * Goal Range: Low 110 mg/dL - High 140 mg/dL * Correction Factor: 12 mg/dL/unit * Nutritional / Prandial insulin per carb ratio of 1 unit per 4 grams CHO consumed
--- NOTE | 2022-06-29 15:05 | Hospitalist Progress Note ---
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 Complicated urinary tract infection-POA H/O cystectomy/Ileal conduit related UTI --CT ABD:Bilateral nephrolithiasis without ureteral calculi. Mild left-sided pe lviectasis with urothelial thickening. No bowel obstruction or bowel wall thickening. Unchanged right pleural effusion with right pleural drainage catheter and bibasilar opacities suggestive of atelectasis. Chronic and postoperative changes as above. --H/O recurrent Pseudomonal UTI -- Urine culture growing Klebsiella, Morganella, Enterococcus --Blood Culture: Negative to date --Vaginal culture: mrsa -- Continue cefepime, daptomycin --Appreciate ID input Needs 10 to 14 days of IV antibiotic therapy --Monitor CPK Groin cellulitis Seen by PCP few days ago and was started on doxycycline -Hold doxycycline -Continue IV antibiotics as above Continue Wound care Monitor DM II on insulin -Continue ISS, basal insulin --Monitor BGs -glycemic pharmacy consulted Hypothyroidism -Continue levothyroxine Chronic hypoxic, hypercarbic respiratory failure on oxygen/BiPAP at night Obesity hypoventilation syndrome, sleep apnea -Continue supplemental oxygen, BiPAP at night Bipolar disorder, depression -Continue home meds H/O spina bifida S/P ventriculoperitoneal shunt Chronic migraines Continue home medications Morbid obesity BMI 46 H/O PE On apixaban Code Status Full Code Admission and Anticipated Discharge Date Admission Date: June 26, 2022 Subjective Patient is seen and examined at bedside States having headache this morning Also reports abdominal discomfort/burning sensation at ostomy site Denies any chest pain, shortness of breath, dizziness, nausea No other complaints Review of Systems Review of Systems: All systems reviewed & are unremarkable except as noted in Subjective Physical Exam Physical Exam: Physical Exam: Vitals signs as noted above General Appearance:Morbidly Obese, no apparent distress Head: normocephalic, Atraumatic Eyes: normal inspection, EOMI Neck: supple, Trachea midline Respiratory/Chest: Normal breath sounds, CTA, No accessory muscle use Cardiovascular: S1, S2, No murmur Abdomen/GI:Soft, Non tender, +Ostomy, R groin lesion, Bowel sounds present Extremities/Musculoskeletal:normal inspection, no edema, B/L BKA Neurologic/Psych:AAOX3, grossly no focal neurological deficits Skin: normal color, warm Results & Data Results & Data ([facility]) Vital Signs (Past 12 Hours) Vital Signs Temp Pulse Pulse Resp BP BP Pulse Ox 06/29/22 11:46 36.7 C 76 18 117/69 93 06/29/22 08:00 85 06/29/22 07:04 36.6 C 73 16 111/56 L 93 06/29/22 03:35 36.8 C 78 18 118/70 93 O2 Del Method O2 Flow Rate 06/29/22 11:46 Nasal Cannula 2 06/29/22 08:00 06/29/22 07:04 BiPAP 06/29/22 03:35 BiPAP Laboratory Results Short CBC 06/29/22 Range/Units 08:04 WBC 6.32 (4.8-10.8) K/ul Hgb 10.8 L (12.0-16.0) g/dl Hct 34.5 (34.1-44.9) % Plt Count 234 (130-400) K/uL BMP 06/29/22 08:04 Sodium 138 Potassium 3.4 L Chloride 101 Carbon Dioxide 31 BUN 12 Creatinine 0.37 L Glucose 173 H Calcium 8.9 Cardiac Enzymes 06/29/22 Range/Units 08:04 Total Creatine Kinase < 10 L (26-192) U/L
[2022-06-29] MEDS: FUROSEMIDE 40 MG TAB PO SCH (15:54)
[2022-06-29] MEDS: ACETAMINOPHEN 325 MG TAB PO PRN ×2 (15:54→22:03)
[2022-06-29] MEDS: DAPTOmycin 500 MG in SYRINGE 0 ML IV SCH (15:55)
[2022-06-29] MEDS: FAMOTIDINE 40 MG TABLET PO SCH (20:58)
[2022-06-29] MEDS: ATENOLOL 50 MG TABLET PO SCH (20:58)
[2022-06-29] MEDS: MONTELUKAST SODIUM 10 MG TABLET PO SCH (20:58)
[2022-06-29] MEDS: traZODone HCL 100 MG TAB PO SCH (20:58)
[2022-06-29] MEDS: clonazePAM 0.5 MG TAB PO SCH (20:58)
[2022-06-29] MEDS: CETIRIZINE HCL 10 MG TABLET PO SCH (20:58)
[2022-06-29] MEDS: FLUTICASONE/VILANTEROL 200/25MCG 14 PUFFS/INHALER INH SCH (20:59)
[2022-06-29] MEDS ORDERED: LANTUS PER UNIT CHARGE SQ SCH (21:00)
[2022-06-29] MEDS: oxyCODONE HCL IR 5 MG TAB (IMMEDIATE RELEASE) PO PRN (23:49)
[2022-06-30] MEDS: LEVOTHYROXINE SODIUM 100 MCG TABLET PO SCH (04:58)
[2022-06-30 08:11] LABS: BUN Creatinine Ratio 18.2 (10-20); Calcium 7.9 mg/dl (8.5-10.1); Creatinine Clr Calc Pharmacy 168.7 ml/min; Est GFR (African American) 140.8 ml/min; Est GFR (Non-African American) 121.5 ml/min; Magnesium 1.5 mg/dl (1.7-2.4); Potassium 3.2 mmol/L (3.5-5.1)
[2022-06-30] MEDS: CEFEPIME 2,000 MG in SYRINGE 0 ML IV SCH ×3 (08:14→23:26)
[2022-06-30] MEDS: [UNRECOGNIZED DRUG - REMARK] PO PRN ×2 (08:30→23:26)
[2022-06-30] MEDS: [UNRECOGNIZED DRUG - REMARK] PO SCH ×3 (08:30→21:04)
[2022-06-30] MEDS: VENLAFAXINE HCL XR 150 MG CAPXR PO SCH (08:31)
[2022-06-30] MEDS: DOCUSATE SODIUM 100 MG CAP PO SCH ×2 (08:32→21:05)
[2022-06-30] MEDS: NYSTATIN POWDER 15GM BTL EXT PRN (08:32)
[2022-06-30] MEDS: PANTOprazole 40 MG TAB PO SCH ×2 (08:33→21:04)
[2022-06-30] MEDS: DICYCLOMINE HCL 10 MG CAP PO SCH ×2 (08:33→21:05)
[2022-06-30] MEDS: CYANOCOBALAMIN (B-12) 500 MCG TABLET PO SCH (08:34)
[2022-06-30] MEDS: VENLAFAXINE HCL XR 75 MG CAPXR PO SCH (08:34)
[2022-06-30] MEDS: APIXABAN 5 MG TABLET PO SCH ×2 (08:34→21:04)
[2022-06-30] MEDS: LINACLOTIDE 145 MCG CAPSULE PO SCH (08:34)
[2022-06-30] MEDS: LORATADINE 10 MG TAB PO SCH (08:34)
[2022-06-30] MEDS: DIVALPROEX DELAY RELEASE 500 MG TAB PO SCH (08:35)
[2022-06-30] MEDS: ADVANCED PROBIOTIC 1250 MG CAPSULE PO SCH (08:35)
[2022-06-30] MEDS: UMECLIDINIUM BROMIDE 62.5MCG/BLISTER 7 PUFFS/INHALER INH SCH (08:36)
[2022-06-30] MEDS: INSULIN ASPART PER UNIT SC SCH ×4 (08:37→21:48)
[2022-06-30] MEDS: [UNRECOGNIZED DRUG - REMARK] PO SCH (08:37)
[2022-06-30] MEDS ORDERED: POTASSIUM CHLORIDE CRTAB 20 MEQ TABCR PO ONE (09:25)
[2022-06-30] MEDS: MAGNESIUM SULFATE / D5W 1 GM/100 ML BAG IV SCH ×2 (10:14→12:07)
--- NOTE | 2022-06-30 10:34 | Pharmacy Report ---
Pharmacy Glycemic Short Note 2 - Date of Service June 30, 2022 - Glycemic Short BSG Results (Last 24 hours): 06/29/22 06/29/22 06/29/22 12:20 16:30 20:53 Glucose POC Glucose 219 H 213 H 260 H 06/30/22 06/30/22 06/30/22 06:17 07:24 07:40 Glucose 142 H POC Glucose 161 H 165 H OUTPATIENT ANTIDIABETIC REGIMEN: * Lantus 50 units SC HS * Novolog 25 units SC AC * Trulicity 4.5 mg SC every * HbA1c: 7.4% (06/27/22) ASSESSMENT: 06/30: * BSGs elevated 448-647-950qz/dL the last 24h. Pt received 45units of basal and 71 units of bolus insulin yesterday. * Tolerating diet and continues on antibiotics. * Given elevated fasting, will continue to titrate basal BY ~ 20% to 55 units tonight. Novolog parameters tightened d/t prandial hyperglycemia. 06/29: * Connie received a total of 90 units of insulin yesterday, 35 units basal + 55 units bolus. BSGs were 251-390-062-240 mg/dL. * Fasting BSG was up to 179 mg/dL this AM. Will increase basal by 30% tonight. * Given postprandial hyperglycemia yesterday as well as today at lunch, will tighten Novolog parameters. 06/28: * 37 yo F admitted last evening secondary to possible UTI. Pharmacy was consulted to assist with inpatient glycemic management. Patient is well known to our service. Was NPO last evening into this AM but now ordered and tolerating a diet. Currently on Cefepime + Daptomycin for UTI. * BSGs last evening were: 182-185 mg/dL. Received Novolog based on weight/stress of 2 as well as 35 units of Lantus (30% reduction from home dose). * Fasting BSG was 161 mg/dL this AM. Lunchtime BSG was 169 mg/dL. * Will tighten both carb ratio and correction factor with lunch. * Continue with current basal dosing for now. PLAN FOR INPATIENT GLYCEMIC CONTROL: * Hold outpatient Trulicity * Basal insulin * Lantus 55 units SC HS * Bolus insulin * NovoLog per scale ACHS or Q6hrs while NPO * Goal Range: Low 110 mg/dL - High 140 mg/dL * Correction Factor: 10 mg/dL/unit * Nutritional / Prandial insulin per carb ratio of 1 unit per 3.5 grams CHO consumed
--- NOTE | 2022-06-30 12:46 | CT Scan Report ---
CT abd pelvis wo con CLINICAL HISTORY: abd pain TECHNIQUE: Helical axial images of the abdomen and pelvis were obtained. Automated dose lowering tech niques and/or adjustment according to patient size were utilized for this exam. This exam was perfor med without intravenous contrast. CT DOSE: 1811.80 mGy.cm COMPARISON: Comparison is made to CT abdomen pelvis 06/26/2022 FINDINGS: Lower chest: Right pleural drainage catheter is seen. There is a [id number] right pleural eff usion with associated atelectasis. Left atelectasis is seen. Liver: Unremarkable. No focal lesions are seen. Gallbladder and biliary tree: Patient is status post cholecystectomy. No intra- or extrahepatic bilia ry ductal dilation. Pancreas: Unremarkable, no focal lesions. Spleen: Unremarkable. Adrenals: Unremarkable. Kidneys and ureters: Nonobstructive nephrolithiasis is seen. Left renal artery and cysts are again no john. Bladder: Status post cystectomy with neobladder creation. Reproductive organs: Intrauterine device is noted. Bowel: The appendix is normal. Postsurgical changes of bowel resection with Rajinder pouch formation and colectomy in the left lower quadrant. Lymph nodes Retroperitoneal: Unremarkable. Pelvic: Unremarkable. Mesenteric: Calcified calcified nodes Peritoneum: Normal. Vessels: Unremarkable. Abdominal wall: A fat-containing umbilical hernia is seen. Muscular atrophy is seen. 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 IMPRESSION: 1. No acute abnormalities are seen. 2. Chronic right pleural effusion with a drainage catheter in place, similar to prior exam. ACT 112: Negative or not required by law. Electronically signed by: Rudy Fragoso M.D. 06/30/2022 12:45 PM
--- NOTE | 2022-06-30 15:12 | Hospitalist Progress Note ---
Date of Service June 30, 2022 Assessment & Plan (1) UTI (urinary tract infection): Plan: Patient is a 37 yr female with H/O spina bifida, bilateral below-knee amputations due to MRSA infection, wheelchair-bound, diabetes mellitus type 2, on insulin, morbid obesity, hypothyroidism, depression/bipolar disorder, chronic hypoxic hypercarbic respiratory failure, on 2 to 3 L of O2 via nasal cannula, BiPAP at night, s/p SILO FILLER shunt , s/p cystectomy who presents with abdominal pain, flank pain. Complicated urinary tract infection-POA H/O cystectomy/Ileal conduit related UTI --CT ABD:Bilateral nephrolithiasis without ureteral calculi. Mild left-sided pe lviectasis with urothelial thickening. No bowel obstruction or bowel wall thickening. Unchanged right pleural effusion with right pleural drainage catheter and bibasilar opacities suggestive of atelectasis. Chronic and postoperative changes as above. --H/O recurrent Pseudomonal UTI -- Urine culture growing Klebsiella, Morganella, Enterococcus --Blood Culture: Negative to date --Vaginal culture: mrsa -- Continue cefepime, daptomycin --Appreciate ID input Needs 10 to 14 days of IV antibiotic therapy --Monitor CPK --Continue Current medications Abdominal Pain Unclear etiology --CT ABD:Bilateral nephrolithiasis without ureteral calculi. Mild left-sided pelviectasis with urothelial thickening. Correlate with urinalysis to exclude infection. No bowel obstruction or bowel wall thickening. Unchanged right pleural effusion with right pleural drainage catheter and bibasilar opacities suggestive of atelectasis. Chronic and postoperative changes as above. --Repeat CT ABD:No acute abnormalities are seen. Chronic right pleural effusion with a drainage catheter in place, similar to prior exam. -Consulted Surgery Groin cellulitis Seen by PCP few days ago and was started on doxycycline -Hold doxycycline -Continue IV antibiotics as above Continue Wound care Monitor DM II on insulin -Continue ISS, basal insulin --Monitor BGs -glycemic pharmacy consulted Hypothyroidism -Continue levothyroxine Chronic hypoxic, hypercarbic respiratory failure on oxygen/BiPAP at night Obesity hypoventilation syndrome, sleep apnea -Continue supplemental oxygen, BiPAP at night Bipolar disorder, depression -Continue home meds H/O spina bifida S/P ventriculoperitoneal shunt Chronic migraines Continue home medications Morbid obesity BMI 46 H/O PE On apixaban Code Status Full Code Admission and Anticipated Discharge Date Admission Date: June 26, 2022 Subjective Patient is seen and examined at bedside Reports persistent abdominal pain Also reports associated nausea Denies any chest pain, shortness of breath, dizziness, nausea No other complaints Review of Systems Review of Systems: All systems reviewed & are unremarkable except as noted in Subjective Physical Exam Physical Exam: Physical Exam: Vitals signs as noted above General Appearance:Morbidly Obese, no apparent distress Head: normocephalic, Atraumatic Eyes: normal inspection, EOMI Neck: supple, Trachea midline Respiratory/Chest: Normal breath sounds, CTA, No accessory muscle use Cardiovascular: S1, S2, No murmur Abdomen/GI:Soft, tender, +Ostomy, R groin lesion, Bowel sounds present Extremities/Musculoskeletal:normal inspection, no edema, B/L BKA Neurologic/Psych:AAOX3, grossly no focal neurological deficits Skin: normal color, warm Results & Data Results & Data ([facility]) Vital Signs (Past 12 Hours) Vital Signs Temp Pulse Resp BP Pulse Ox O2 Del Method O2 Flow Rate 06/30/22 11:30 36.6 C 85 17 144/89 H 92 Room Air 06/30/22 09:47 Nasal Cannula 2 06/30/22 07:22 36.7 C 79 18 97/57 L 92 Room Air Laboratory Results BMP 06/30/22 06:17 Sodium 136 Potassium 3.2 L Chloride 109 H Carbon Dioxide 29 BUN 10 Creatinine 0.55 L Glucose 142 H Calcium 7.9 L
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
[2022-06-30] MEDS: DAPTOmycin 500 MG in SYRINGE 0 ML IV SCH (16:56)
[2022-06-30] MEDS: FUROSEMIDE 40 MG TAB PO SCH (16:56)
[2022-06-30] MEDS ORDERED: LANTUS PER UNIT CHARGE SQ SCH ×2 (21:00)
[2022-06-30] MEDS: FLUTICASONE/VILANTEROL 200/25MCG 14 PUFFS/INHALER INH SCH (21:03)
[2022-06-30] MEDS: traZODone HCL 100 MG TAB PO SCH (21:04)
[2022-06-30] MEDS: CETIRIZINE HCL 10 MG TABLET PO SCH (21:04)
[2022-06-30] MEDS: MONTELUKAST SODIUM 10 MG TABLET PO SCH (21:04)
[2022-06-30] MEDS: ATENOLOL 50 MG TABLET PO SCH (21:05)
[2022-06-30] MEDS: clonazePAM 0.5 MG TAB PO SCH (21:05)
[2022-06-30] MEDS: FAMOTIDINE 40 MG TABLET PO SCH (21:05)
[2022-06-30] MEDS: ACETAMINOPHEN 325 MG TAB PO PRN (21:08)
[2022-07-01] MEDS: LEVOTHYROXINE SODIUM 100 MCG TABLET PO SCH (04:33)
[2022-07-01] MEDS ORDERED: LANTUS PER UNIT CHARGE SQ ONE (07:30)
[2022-07-01 07:55] LABS: Anion Gap 6 (3-11); Calcium 8.9 mg/dl (8.5-10.1); Carbon Dioxide 32 mmol/L (21-32); Chloride 101 mmol/L (98-107); Potassium 3.8 mmol/L (3.5-5.1); Sodium 139 mmol/L (136-145)
[2022-07-01 08:00] LABS: BUN Creatinine Ratio 40.6 (10-20); Blood Urea Nitrogen 13 mg/dl (6-23); Creatinine Clr Calc Pharmacy 286.7 ml/min; Est GFR (African American) > 150.0 ml/min; Est GFR (Non-African American) 145.2 ml/min; Glucose 180 mg/dl (70-99(Fasting))
[2022-07-01] MEDS: [UNRECOGNIZED DRUG - REMARK] PO SCH ×3 (09:12→20:31)
[2022-07-01] MEDS: [UNRECOGNIZED DRUG - REMARK] PO PRN (09:12)
[2022-07-01] MEDS: UMECLIDINIUM BROMIDE 62.5MCG/BLISTER 7 PUFFS/INHALER INH SCH (09:14)
[2022-07-01] MEDS: DOCUSATE SODIUM 100 MG CAP PO SCH ×2 (09:14→20:32)
[2022-07-01] MEDS: VENLAFAXINE HCL XR 150 MG CAPXR PO SCH (09:14)
[2022-07-01] MEDS: CYCLOBENZAPRINE HCL 5 MG TAB PO PRN (09:15)
[2022-07-01] MEDS: NYSTATIN CR 15 GM TUBE EXT PRN (09:16)
[2022-07-01] MEDS: INSULIN ASPART PER UNIT SC SCH ×4 (09:19→21:22)
[2022-07-01] MEDS: LINACLOTIDE 145 MCG CAPSULE PO SCH (09:20)
[2022-07-01] MEDS: DIVALPROEX DELAY RELEASE 500 MG TAB PO SCH (09:21)
[2022-07-01] MEDS: PANTOprazole 40 MG TAB PO SCH ×2 (09:21→20:31)
[2022-07-01] MEDS: LORATADINE 10 MG TAB PO SCH (09:21)
[2022-07-01] MEDS: ADVANCED PROBIOTIC 1250 MG CAPSULE PO SCH (09:21)
[2022-07-01] MEDS: DICYCLOMINE HCL 10 MG CAP PO SCH ×2 (09:22→20:32)
[2022-07-01] MEDS: APIXABAN 5 MG TABLET PO SCH ×2 (09:22→20:31)
[2022-07-01] MEDS: [UNRECOGNIZED DRUG - REMARK] PO SCH (09:22)
[2022-07-01] MEDS: VENLAFAXINE HCL XR 75 MG CAPXR PO SCH (09:23)
[2022-07-01] MEDS: CEFEPIME 2,000 MG in SYRINGE 0 ML IV SCH (09:25)
--- NOTE | 2022-07-01 10:32 | Pharmacy Report ---
Pharmacy Glycemic Short Note 2 - Date of Service July 01, 2022 - Glycemic Short BSG Results (Last 24 hours): 06/30/22 06/30/22 06/30/22 11:14 16:24 21:31 Glucose POC Glucose 241 H 262 H 193 H 07/01/22 07/01/22 07:13 07:13 Glucose 180 H POC Glucose 173 H OUTPATIENT ANTIDIABETIC REGIMEN: * Lantus 50 units SC HS * Novolog 25 units SC AC * Trulicity 4.5 mg SC every * HbA1c: 7.4% (06/27/22) ASSESSMENT: 07/01: * BSGs largely above goal the last 24h: 038-107-240-173mg/dL. Patient received 55 units of basal and 81 units of bolus insulin yesterday. * Continues on antibiotics and tolerating diet. * Despite a 20% increase in basal yesterday, fasting BSG actually increased this AM. Will give additional 10 units of Lantus this AM and 60 units tonight for total 70 units. Novolog parameters tightened further d/t persistent prandial hyperglycemia. 06/30: * BSGs elevated 712-218-943pg/dL the last 24h. Pt received 45units of basal and 71 units of bolus insulin yesterday. * Tolerating diet and continues on antibiotics. * Given elevated fasting, will continue to titrate basal BY ~ 20% to 55 units tonight. Novolog parameters tightened d/t prandial hyperglycemia. 06/29: * Connie received a total of 90 units of insulin yesterday, 35 units basal + 55 units bolus. BSGs were [phone] mg/dL. * Fasting BSG was up to 179 mg/dL this AM. Will increase basal by 30% tonight. * Given postprandial hyperglycemia yesterday as well as today at lunch, will tighten Novolog parameters. 06/28: * 37 yo F admitted last evening secondary to possible UTI. Pharmacy was consulted to assist with inpatient glycemic management. Patient is well known to our service. Was NPO last evening into this AM but now ordered and tolerating a diet. Currently on Cefepime + Daptomycin for UTI. * BSGs last evening were: 182-185 mg/dL. Received Novolog based on weight/stress of 2 as well as 35 units of Lantus (30% reduction from home dose). * Fasting BSG was 161 mg/dL this AM. Lunchtime BSG was 169 mg/dL. * Will tighten both carb ratio and correction factor with lunch. * Continue with current basal dosing for now. PLAN FOR INPATIENT GLYCEMIC CONTROL: * Hold outpatient Trulicity * Basal insulin * Lantus 60 units SC HS * Bolus insulin * NovoLog per scale ACHS or Q6hrs while NPO * Goal Range: Low 110 mg/dL - High 140 mg/dL * Correction Factor: 8 mg/dL/unit * Nutritional / Prandial insulin per carb ratio of 1 unit per 2.5 grams CHO consumed
--- NOTE | 2022-07-01 14:40 | Hospitalist Progress Note ---
Date of Service July 01, 2022 Assessment & Plan (1) UTI (urinary tract infection): Plan: Patient is a 37 yr female with H/O spina bifida, bilateral below-knee amputations due to MRSA infection, wheelchair-bound, diabetes mellitus type 2, on insulin, morbid obesity, hypothyroidism, depression/bipolar disorder, chronic hypoxic hypercarbic respiratory failure, on 2 to 3 L of O2 via nasal cannula, BiPAP at night, s/p WELLNESS NURSE RN shunt , s/p cystectomy who presents with abdominal pain, flank pain. Complicated urinary tract infection-POA H/O cystectomy/Ileal conduit related UTI --CT ABD:Bilateral nephrolithiasis without ureteral calculi. Mild left-sided pe lviectasis with urothelial thickening. No bowel obstruction or bowel wall thickening. Unchanged right pleural effusion with right pleural drainage catheter and bibasilar opacities suggestive of atelectasis. Chronic and postoperative changes as above. --H/O recurrent Pseudomonal UTI -- Urine culture growing Klebsiella, Morganella, Enterococcus --Blood Culture: Negative to date --Vaginal culture: mrsa --Appreciate ID input Will plan to complete 14 day course of IV antibiotic therapy --Monitor CPK -- Continue daptomycin, cefepime transition to Rocephin Abdominal Pain Unclear etiology --CT ABD:Bilateral nephrolithiasis without ureteral calculi. Mild left-sided pelviectasis with urothelial thickening. Correlate with urinalysis to exclude infection. No bowel obstruction or bowel wall thickening. Unchanged right pleural effusion with right pleural drainage catheter and bibasilar opacities suggestive of atelectasis. Chronic and postoperative changes as above. --Repeat CT ABD:No acute abnormalities are seen. Chronic right pleural effusion with a drainage catheter in place, similar to prior exam. -Appreciate Surgery Input Groin cellulitis Seen by PCP few days ago and was started on doxycycline -Hold doxycycline -Continue IV antibiotics as above Continue Wound care Monitor DM II on insulin -Continue ISS, basal insulin --Monitor BGs -glycemic pharmacy consulted Hypothyroidism -Continue levothyroxine Chronic hypoxic, hypercarbic respiratory failure on oxygen/BiPAP at night Obesity hypoventilation syndrome, sleep apnea -Continue supplemental oxygen, BiPAP at night Bipolar disorder, depression -Continue home meds H/O spina bifida S/P ventriculoperitoneal shunt Chronic migraines Continue home medications Morbid obesity BMI 46 H/O PE On apixaban Code Status Full Code Admission and Anticipated Discharge Date Admission Date: June 26, 2022 Subjective Patient is seen and examined at bedside Reports Pain at Ostomy site No new complaints Denies any chest pain, shortness of breath, dizziness, nausea Review of Systems Review of Systems: All systems reviewed & are unremarkable except as noted in Subjective Physical Exam Physical Exam: Physical Exam: Vitals signs as noted above General Appearance:Morbidly Obese, no apparent distress Head: normocephalic, Atraumatic Eyes: normal inspection, EOMI Neck: supple, Trachea midline Respiratory/Chest: Normal breath sounds, CTA, No accessory muscle use Cardiovascular: S1, S2, No murmur Abdomen/GI:Soft, tender, +Ostomy, R groin lesion, Bowel sounds present Extremities/Musculoskeletal:normal inspection, no edema, B/L BKA Neurologic/Psych:AAOX3, grossly no focal neurological deficits Skin: normal color, warm Results & Data Results & Data ([facility]) Vital Signs (Past 12 Hours) Vital Signs Temp Pulse Pulse Resp BP Pulse Ox O2 Del Method 07/01/22 08:00 Nasal Cannula 07/01/22 08:00 84 07/01/22 07:01 36.8 C 87 18 118/70 95 Nasal Cannula 07/01/22 03:45 36.9 C 87 19 117/65 93 Nasal Cannula O2 Flow Rate 07/01/22 08:00 2 07/01/22 08:00 07/01/22 07:01 07/01/22 03:45 2 Laboratory Results BMP 07/01/22 07:13 Sodium 139 Potassium 3.8 Chloride 101 Carbon Dioxide 32 BUN 13 Creatinine 0.32 L Glucose 180 H Calcium 8.9
[2022-07-01] MEDS: FUROSEMIDE 40 MG TAB PO SCH (18:02)
[2022-07-01] MEDS: cefTRIAXone SODIUM 2,000 MG in DEXTROSE 5% 50 ML IV SCH (18:03)
[2022-07-01] MEDS: DAPTOmycin 500 MG in SYRINGE 0 ML IV SCH (18:03)
[2022-07-01] MEDS: FAMOTIDINE 40 MG TABLET PO SCH (20:30)
[2022-07-01] MEDS: MONTELUKAST SODIUM 10 MG TABLET PO SCH (20:31)
[2022-07-01] MEDS: ATENOLOL 50 MG TABLET PO SCH (20:31)
[2022-07-01] MEDS: traZODone HCL 100 MG TAB PO SCH (20:31)
[2022-07-01] MEDS: clonazePAM 0.5 MG TAB PO SCH (20:31)
[2022-07-01] MEDS: FLUTICASONE/VILANTEROL 200/25MCG 14 PUFFS/INHALER INH SCH (20:33)
[2022-07-01] MEDS ORDERED: LANTUS PER UNIT CHARGE SQ SCH (21:00)
[2022-07-01] MEDS: CETIRIZINE HCL 10 MG TABLET PO SCH (22:21)
[2022-07-01] MEDS: oxyCODONE HCL IR 5 MG TAB (IMMEDIATE RELEASE) PO PRN (22:37)
[2022-07-02] MEDS: [UNRECOGNIZED DRUG - REMARK] PO PRN ×2 (00:11→09:28)
[2022-07-02] MEDS: CYCLOBENZAPRINE HCL 5 MG TAB PO PRN (00:50)
[2022-07-02] MEDS: ACETAMINOPHEN 325 MG TAB PO PRN ×2 (01:55→23:44)
[2022-07-02] MEDS ORDERED: KETOROLAC TROMETHAMINE 15 MG/ML VIAL IV ONE (02:04)
[2022-07-02] MEDS: oxyCODONE HCL IR 5 MG TAB (IMMEDIATE RELEASE) PO PRN (02:42)
[2022-07-02] MEDS ORDERED: NITROGLYCERIN SL 0.4 MG/TAB TAB SL STA (03:45)
[2022-07-02] MEDS ORDERED: oxyCODONE HCL IR 5 MG TAB (IMMEDIATE RELEASE) PO STA (04:32)
[2022-07-02] MEDS ORDERED: MoRPHine SULFATE 4 MG/ML 1 ML CARP\\VIAL IV PRN (04:33)
[2022-07-02] MEDS ORDERED: OPTIRAY 320 500ml IV ONE (04:38)
[2022-07-02 04:55] LABS: Hematocrit (blood only) 33.7 % (37.0-47.0); Hemoglobin 10.5 g/dl (12.0-16.0); Mean Corpuscular Hgb Conc 31.2 g/dL (32.0-36.0); Mean Corpuscular Volume 99.4 fL (80.0-100.0); Mean Platelet Volume 10.3 fL (9.4-12.4); Platelet Count 231 K/uL (130-400); RDW Coefficient of Variation 17.6 % (11.5-14.5); RDW Standard Deviation 64.2 fL (36.4-46.3); Red Blood Count 3.39 M/uL (4.20-5.40)
[2022-07-02 05:06] LABS: Partial Thromboplastin Time 28.8 Seconds (21.0-31.0)
[2022-07-02 05:12] LABS: Anion Gap 6 (3-11); Calcium 8.8 mg/dl (8.5-10.1); Carbon Dioxide 31 mmol/L (21-32); Chloride 98 mmol/L (98-107); Magnesium 1.7 mg/dl (1.7-2.4); Potassium 3.5 mmol/L (3.5-5.1); Sodium 135 mmol/L (136-145)
[2022-07-02 05:17] LABS: Blood Urea Nitrogen 16 mg/dl (6-23); Creatinine Clr Calc Pharmacy 228.5 ml/min; Est GFR (African American) > 150.0 ml/min; Est GFR (Non-African American) 133.9 ml/min; Glucose 195 mg/dl (70-99(Fasting))
[2022-07-02] MEDS: LEVOTHYROXINE SODIUM 100 MCG TABLET PO SCH (05:37)
--- NOTE | 2022-07-02 07:16 | Electrocardiogram Report ---
Test Reason : Blood Pressure : / mmHG Vent. Rate : 093 BPM Atrial Rate : 093 BPM P-R Int : 156 ms QRS Dur : 092 ms QT Int : 350 ms P-R-T Axes : 031 000 019 degrees QTc Int : 435 ms Normal sinus rhythm mild OH depression Abnormal ECG When compared with ECG of 26-JUN-2022 09:51, No significant change was found Confirmed by Rudy Lazo ([id number]) on 07/02/2022 7:15:54 AM Referred By: REFERRED SELF Confirmed By:Fabian Lazo
[2022-07-02] MEDS: HEPARIN 100 UNIT/ML 5ML FLUSH FLUSH PRN (07:46)
--- NOTE | 2022-07-02 07:51 | CT Scan Report ---
CT ANGIOGRAPHY OF THE CHEST, PULMONARY EMBOLUS PROTOCOL CLINICAL HISTORY: Shortness of breath. Chest pain. Evaluate for pulmonary embolus. COMPARISON STUDY: Chest CT June 14, 2020 and chest radiograph June 13, 2022. TECHNIQUE: Following IV administration of 120 mL of Optiray, helical axial images of the chest were o btained utilizing the pulmonary embolus protocol. Maximal intensity projections and sagittal and cor onal reformats were viewed on an independent 3D workstation. IV contrast was administered without co mplication. Automated exposure control was utilized for the study. A dose lowering technique was ut ilized adhering to the principles of ALARA. CT DOSE: 844.21 mGy.cm FINDINGS: No pulmonary emboli are identified. There is no thoracic dissection. No pericardial effusi on is present. Mild cardiomegaly. A small to moderate right pleural effusion has mildly increased whe n compared to prior chest CT. A right ventricular pleural catheter remains in place. Segmental right lower lobe atelectasis is noted. There is no pneumothorax. No consolidation is identified to suggest pneumonia. There is no thoracic lymphadenopathy. Portion of a previous left-sided venous catheter wit hin the left brachiocephalic vein is noted. A right internal jugular central venous catheter is in pl [place]. IMPRESSION: 1. No pulmonary emboli identified. 2. Small to moderate right pleural effusion with segmental right lower lobe atelectasis. Right ventri cular pleural shunt catheter in place. ACT 112: Negative or not required by law. Electronically signed by: Ryan Boone M.D. 07/02/2022 7:50 AM
[2022-07-02] MEDS: [UNRECOGNIZED DRUG - REMARK] PO SCH (09:28)
[2022-07-02] MEDS: [UNRECOGNIZED DRUG - REMARK] PO SCH ×3 (09:28→21:26)
[2022-07-02] MEDS: UMECLIDINIUM BROMIDE 62.5MCG/BLISTER 7 PUFFS/INHALER INH SCH (09:28)
[2022-07-02] MEDS: LORATADINE 10 MG TAB PO SCH (09:29)
[2022-07-02] MEDS: CYANOCOBALAMIN (B-12) 500 MCG TABLET PO SCH (09:29)
[2022-07-02] MEDS: VENLAFAXINE HCL XR 150 MG CAPXR PO SCH (09:29)
[2022-07-02] MEDS: DOCUSATE SODIUM 100 MG CAP PO SCH ×2 (09:29→21:28)
[2022-07-02] MEDS: DIVALPROEX DELAY RELEASE 500 MG TAB PO SCH (09:30)
[2022-07-02] MEDS: ADVANCED PROBIOTIC 1250 MG CAPSULE PO SCH (09:30)
[2022-07-02] MEDS: VENLAFAXINE HCL XR 75 MG CAPXR PO SCH (09:30)
[2022-07-02] MEDS: DICYCLOMINE HCL 10 MG CAP PO SCH ×2 (09:30→21:28)
[2022-07-02] MEDS: LINACLOTIDE 145 MCG CAPSULE PO SCH (09:30)
[2022-07-02] MEDS: PANTOprazole 40 MG TAB PO SCH ×2 (09:31→21:28)
[2022-07-02] MEDS: APIXABAN 5 MG TABLET PO SCH ×2 (09:31→21:25)
[2022-07-02] MEDS: INSULIN ASPART PER UNIT SC SCH ×4 (09:32→21:38)
[2022-07-02] MEDS: LANTUS PER UNIT CHARGE SQ SCH ×2 (13:01→21:37)
--- NOTE | 2022-07-02 13:33 | Hospitalist Progress Note ---
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 Complicated urinary tract infection-POA H/O cystectomy/Ileal conduit related UTI --CT ABD:Bilateral nephrolithiasis without ureteral calculi. Mild left-sided pe lviectasis with urothelial thickening. No bowel obstruction or bowel wall thickening. Unchanged right pleural effusion with right pleural drainage catheter and bibasilar opacities suggestive of atelectasis. Chronic and postoperative changes as above. --H/O recurrent Pseudomonal UTI -- Urine culture growing Klebsiella, Morganella, Enterococcus --Blood Culture: Negative to date --Vaginal culture: mrsa --Appreciate ID input Will plan to complete 14 day course of IV antibiotic therapy --Monitor CPK -- Continue daptomycin, cefepime transition to Rocephin --Last day of antibiotics is 07/09/22 --Plan for USD guided IV line placement as able Abdominal Pain Unclear etiology --CT ABD:Bilateral nephrolithiasis without ureteral calculi. Mild left-sided pelviectasis with urothelial thickening. Correlate with urinalysis to exclude infection. No bowel obstruction or bowel wall thickening. Unchanged right pleural effusion with right pleural drainage catheter and bibasilar opacities suggestive of atelectasis. Chronic and postoperative changes as above. --Repeat CT ABD:No acute abnormalities are seen. Chronic right pleural effusion with a drainage catheter in place, similar to prior exam. -Appreciate Surgery Input - Abd pain is better Groin cellulitis Seen by PCP few days ago and was started on doxycycline -Hold doxycycline -Continue IV antibiotics as above Continue Wound care Monitor DM II on insulin -Continue ISS, basal insulin --Monitor BGs -glycemic pharmacy consulted Hypothyroidism -Continue levothyroxine Chronic hypoxic, hypercarbic respiratory failure on oxygen/BiPAP at night Obesity hypoventilation syndrome, sleep apnea -Continue supplemental oxygen, BiPAP at night Bipolar disorder, depression -Continue home meds H/O spina bifida S/P ventriculoperitoneal shunt Chronic migraines Continue home medications Morbid obesity BMI 46 H/O PE On apixaban Code Status Full Code Admission and Anticipated Discharge Date Admission Date: June 26, 2022 Subjective Patient is seen and examined at bedside States abdominal pain is better Has chronic headache Denies any chest pain, shortness of breath, dizziness, nausea Poor sleep overnight Reports having chest pain overnight which has improved Review of Systems Review of Systems: All systems reviewed & are unremarkable except as noted in Subjective Physical Exam Physical Exam: Physical Exam: Vitals signs as noted above General Appearance:Morbidly Obese, no apparent distress Head: normocephalic, Atraumatic Eyes: normal inspection, EOMI Neck: supple, Trachea midline Respiratory/Chest: Normal breath sounds, CTA, No accessory muscle use Cardiovascular: S1, S2, No murmur Abdomen/GI:Soft, tender, +Ostomy, R groin lesion, Bowel sounds present Extremities/Musculoskeletal:normal inspection, no edema, B/L BKA Neurologic/Psych:AAOX3, grossly no focal neurological deficits Skin: normal color, warm Results & Data Results & Data ([facility]) Vital Signs (Past 12 Hours) Vital Signs Temp Pulse Resp BP Pulse Ox O2 Del Method O2 Flow Rate 07/02/22 11:15 36.6 C 86 20 106/79 90 Room Air 07/02/22 07:08 36.6 C 83 19 92/51 L 93 Nasal Cannula 1 07/02/22 02:47 36.5 C 90 18 113/73 97 BiPAP Laboratory Results Short CBC 07/02/22 Range/Units 04:46 WBC 8.00 (4.8-10.8) K/ul Hgb 10.5 L (12.0-16.0) g/dl Hct 33.7 L (37.0-47.0) % Plt Count 231 (130-400) K/uL BMP 07/02/22 04:46 Sodium 135 L Potassium 3.5 Chloride 98 Carbon Dioxide 31 BUN 16 Creatinine 0.41 L Glucose 195 H Calcium 8.8
[2022-07-02] MEDS ORDERED: KETOROLAC TROMETHAMINE 15 MG/ML VIAL IV STA (16:50)
[2022-07-02] MEDS ORDERED: PROCHLORPERAZINE 5 MG/ML 2 ML VIAL IV STA (16:50)
[2022-07-02] MEDS ORDERED: diphenhydrAMINE 50 MG/ML VIAL IV STA (16:50)
[2022-07-02] MEDS ORDERED: PROCHLORPERAZINE 10 MG in SYRINGE 8 ML IV ONE (17:00)
[2022-07-02] MEDS: FUROSEMIDE 40 MG TAB PO SCH (17:23)
[2022-07-02] MEDS: cefTRIAXone SODIUM 2,000 MG in DEXTROSE 5% 50 ML IV SCH (17:25)
[2022-07-02] MEDS: DAPTOmycin 500 MG in SYRINGE 0 ML IV SCH (17:25)
[2022-07-02] MEDS: ATENOLOL 50 MG TABLET PO SCH (21:26)
[2022-07-02] MEDS: MONTELUKAST SODIUM 10 MG TABLET PO SCH (21:28)
[2022-07-02] MEDS: FLUTICASONE/VILANTEROL 200/25MCG 14 PUFFS/INHALER INH SCH (21:29)
[2022-07-02] MEDS: FAMOTIDINE 40 MG TABLET PO SCH (21:29)
[2022-07-02] MEDS: CETIRIZINE HCL 10 MG TABLET PO SCH (21:30)
[2022-07-02] MEDS: NYSTATIN POWDER 15GM BTL EXT PRN (21:39)
[2022-07-02] MEDS: traZODone HCL 100 MG TAB PO SCH (21:39)
[2022-07-02] MEDS: clonazePAM 0.5 MG TAB PO SCH (21:39)
[2022-07-03] MEDS: LEVOTHYROXINE SODIUM 100 MCG TABLET PO SCH (05:31)
[2022-07-03 06:48] LABS: Anion Gap 6 (3-11); Calcium 8.8 mg/dl (8.5-10.1); Carbon Dioxide 31 mmol/L (21-32); Chloride 101 mmol/L (98-107); Magnesium 1.7 mg/dl (1.7-2.4); Sodium 138 mmol/L (136-145)
[2022-07-03 06:53] LABS: BUN Creatinine Ratio 46.3 (10-20); Blood Urea Nitrogen 19 mg/dl (6-23); Creatinine Clr Calc Pharmacy 224.6 ml/min; Est GFR (African American) > 150.0 ml/min; Est GFR (Non-African American) 133.9 ml/min; Glucose 171 mg/dl (70-99(Fasting))
[2022-07-03] MEDS: INSULIN ASPART PER UNIT SC SCH ×4 (09:50→20:30)
[2022-07-03] MEDS: LANTUS PER UNIT CHARGE SQ SCH ×2 (09:52→20:30)
[2022-07-03] MEDS: [UNRECOGNIZED DRUG - REMARK] PO SCH (09:57)
[2022-07-03] MEDS: [UNRECOGNIZED DRUG - REMARK] PO PRN (09:57)
[2022-07-03] MEDS: APIXABAN 5 MG TABLET PO SCH ×2 (09:58→20:35)
[2022-07-03] MEDS: UMECLIDINIUM BROMIDE 62.5MCG/BLISTER 7 PUFFS/INHALER INH SCH (09:58)
[2022-07-03] MEDS: VENLAFAXINE HCL XR 75 MG CAPXR PO SCH (09:58)
[2022-07-03] MEDS: ADVANCED PROBIOTIC 1250 MG CAPSULE PO SCH (09:58)
[2022-07-03] MEDS: VENLAFAXINE HCL XR 150 MG CAPXR PO SCH (09:58)
[2022-07-03] MEDS: [UNRECOGNIZED DRUG - REMARK] PO SCH ×3 (09:58→20:32)
[2022-07-03] MEDS: PANTOprazole 40 MG TAB PO SCH ×2 (09:59→20:36)
[2022-07-03] MEDS: DOCUSATE SODIUM 100 MG CAP PO SCH ×2 (09:59→20:33)
[2022-07-03] MEDS: LINACLOTIDE 145 MCG CAPSULE PO SCH (09:59)
[2022-07-03] MEDS: LORATADINE 10 MG TAB PO SCH (09:59)
[2022-07-03] MEDS: DICYCLOMINE HCL 10 MG CAP PO SCH ×2 (09:59→20:35)
--- NOTE | 2022-07-03 10:22 | Pharmacy Report ---
Pharmacy Glycemic Short Note 2 - Date of Service July 03, 2022 - Glycemic Short BSG Results (Last 24 hours): 07/02/22 07/02/22 07/02/22 11:18 16:06 20:45 Glucose POC Glucose 204 H 150 H 164 H 07/03/22 07/03/22 05:51 07:10 Glucose 171 H POC Glucose 177 H OUTPATIENT ANTIDIABETIC REGIMEN: * Lantus 50 units SC HS * Novolog 25 units SC AC * Trulicity 4.5 mg SC every * HbA1c: 7.4% (06/27/22) ASSESSMENT: 07/02/22 * BSGs yesterday were 180-325-020-164 mg/dL. Patient received 149 units of insulin (80 units of basal and 69 units of bolus). * Fasting today is 177 mg/dL which is trending down. Continue basal. * BSGs steady yesterday - Novolog had been tightened yesterday. Continue. 07/01: * BSGs largely above goal the last 24h: 024-411-926-173mg/dL. Patient received 55 units of basal and 81 units of bolus insulin yesterday. * Continues on antibiotics and tolerating diet. * Despite a 20% increase in basal yesterday, fasting BSG actually increased this AM. Will give additional 10 units of Lantus this AM and 60 units tonight for total 70 units. Novolog parameters tightened further d/t persistent prandial hyperglycemia. 06/30: * BSGs elevated 699-162-690jt/dL the last 24h. Pt received 45units of basal and 71 units of bolus insulin yesterday. * Tolerating diet and continues on antibiotics. * Given elevated fasting, will continue to titrate basal BY ~ 20% to 55 units tonight. Novolog parameters tightened d/t prandial hyperglycemia. 06/29: * Connie received a total of 90 units of insulin yesterday, 35 units basal + 55 units bolus. BSGs were [phone] mg/dL. * Fasting BSG was up to 179 mg/dL this AM. Will increase basal by 30% tonight. * Given postprandial hyperglycemia yesterday as well as today at lunch, will tighten Novolog parameters. 06/28: * 37 yo F admitted last evening secondary to possible UTI. Pharmacy was consulted to assist with inpatient glycemic management. Patient is well known to our service. Was NPO last evening into this AM but now ordered and tole rating a diet. Currently on Cefepime + Daptomycin for UTI. * BSGs last evening were: 182-185 mg/dL. Received Novolog based on weight/stress of 2 as well as 35 units of Lantus (30% reduction from home dose). * Fasting BSG was 161 mg/dL this AM. Lunchtime BSG was 169 mg/dL. * Will tighten both carb ratio and correction factor with lunch. * Continue with current basal dosing for now. PLAN FOR INPATIENT GLYCEMIC CONTROL: * Hold outpatient Trulicity * Basal insulin * Lantus 40 units SC BID * Bolus insulin * NovoLog per scale ACHS or Q6hrs while NPO * Goal Range: Low 110 mg/dL - High 140 mg/dL * Correction Factor: 8 mg/dL/unit * Nutritional / Prandial insulin per carb ratio of 1 unit per 2 grams CHO consumed
[2022-07-03] MEDS: DIVALPROEX DELAY RELEASE 500 MG TAB PO SCH (11:36)
[2022-07-03] MEDS: HEPARIN 100 UNIT/ML 5ML FLUSH FLUSH PRN ×2 (14:49→20:44)
--- NOTE | 2022-07-03 14:54 | Hospitalist Progress Note ---
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 Complicated urinary tract infection-POA H/O cystectomy/Ileal conduit related UTI --CT ABD:Bilateral nephrolithiasis without ureteral calculi. Mild left-sided pe lviectasis with urothelial thickening. No bowel obstruction or bowel wall thickening. Unchanged right pleural effusion with right pleural drainage catheter and bibasilar opacities suggestive of atelectasis. Chronic and postoperative changes as above. --H/O recurrent Pseudomonal UTI -- Urine culture growing Klebsiella, Morganella, Enterococcus --Blood Culture: Negative to date --Vaginal culture: mrsa --Appreciate ID input Will plan to complete 14 day course of IV antibiotic therapy --Monitor CPK -- Continue daptomycin, cefepime transition to Rocephin --Last day of antibiotics is 07/09/22 -Likely discharge tomorrow if IV Antibiotics can be arranged Abdominal Pain Unclear etiology --CT ABD:Bilateral nephrolithiasis without ureteral calculi. Mild left-sided pelviectasis with urothelial thickening. Correlate with urinalysis to exclude infection. No bowel obstruction or bowel wall thickening. Unchanged right pleural effusion with right pleural drainage catheter and bibasilar opacities suggestive of atelectasis. Chronic and postoperative changes as above. --Repeat CT ABD:No acute abnormalities are seen. Chronic right pleural effusion with a drainage catheter in place, similar to prior exam. -Appreciate Surgery Input - Abd pain pain improved Groin cellulitis Seen by PCP few days ago and was started on doxycycline -Hold doxycycline -Continue IV antibiotics as above Continue Wound care Monitor DM II on insulin -Continue ISS, basal insulin --Monitor BGs -glycemic pharmacy consulted Hypothyroidism -Continue levothyroxine Chronic hypoxic, hypercarbic respiratory failure on oxygen/BiPAP at night Obesity hypoventilation syndrome, sleep apnea -Continue supplemental oxygen, BiPAP at night Bipolar disorder, depression -Continue home meds H/O spina bifida S/P ventriculoperitoneal shunt Chronic migraines Continue home medications Advised to follow up with Neurosurgery as outpatient Morbid obesity BMI 46 H/O PE On apixaban Code Status Full Code Admission and Anticipated Discharge Date Admission Date: June 26, 2022 Subjective Patient is seen and examined at bedside Reports chronic headache No new complaints Denies any chest pain, shortness of breath, dizziness, nausea Abdominal pain much improved Discussed with patient's family over the phone Review of Systems Review of Systems: All systems reviewed & are unremarkable except as noted in Subjective Physical Exam Physical Exam: Physical Exam: Vitals signs as noted above General Appearance:Morbidly Obese, no apparent distress Head: normocephalic, Atraumatic Eyes: normal inspection, EOMI Neck: supple, Trachea midline Respiratory/Chest: Normal breath sounds, CTA, No accessory muscle use Cardiovascular: S1, S2, No murmur Abdomen/GI:Soft, tender, +Ostomy, R groin lesion, Bowel sounds present Extremities/Musculoskeletal:normal inspection, no edema, B/L BKA Neurologic/Psych:AAOX3, grossly no focal neurological deficits Skin: normal color, warm Results & Data Results & Data ([facility]) Vital Signs (Past 12 Hours) Vital Signs Temp Pulse Resp BP Pulse Ox O2 Del Method O2 Flow Rate 07/03/22 11:20 36.9 C 89 14 117/72 94 Nasal Cannula 1 07/03/22 07:05 36.7 C 85 24 132/71 90 Nasal Cannula 07/03/22 05:33 36.9 C 92 H 18 117/72 95 Room Air Laboratory Results BMP 07/03/22 05:51 Sodium 138 Potassium 4.0 Chloride 101 Carbon Dioxide 31 BUN 19 Creatinine 0.41 L Glucose 171 H Calcium 8.8
[2022-07-03] MEDS: ACETAMINOPHEN 325 MG TAB PO PRN ×2 (15:19→20:31)
[2022-07-03] MEDS ORDERED: ONDANSETRON INJ 2 MG/ML 2 ML VIAL ONE (15:46)
[2022-07-03] MEDS: FUROSEMIDE 40 MG TAB PO SCH (17:52)
[2022-07-03] MEDS: DAPTOmycin 500 MG in SYRINGE 0 ML IV SCH (17:54)
[2022-07-03] MEDS: cefTRIAXone SODIUM 2,000 MG in DEXTROSE 5% 50 ML IV SCH (17:54)
[2022-07-03] MEDS: oxyCODONE HCL IR 5 MG TAB (IMMEDIATE RELEASE) PO PRN ×2 (18:23→22:17)
[2022-07-03] MEDS: clonazePAM 0.5 MG TAB PO SCH (20:31)
[2022-07-03] MEDS: FLUTICASONE/VILANTEROL 200/25MCG 14 PUFFS/INHALER INH SCH (20:32)
[2022-07-03] MEDS: CETIRIZINE HCL 10 MG TABLET PO SCH (20:33)
[2022-07-03] MEDS: ATENOLOL 50 MG TABLET PO SCH (20:35)
[2022-07-03] MEDS: MONTELUKAST SODIUM 10 MG TABLET PO SCH (20:36)
[2022-07-03] MEDS: FAMOTIDINE 40 MG TABLET PO SCH (20:36)
[2022-07-03] MEDS: traZODone HCL 100 MG TAB PO SCH (20:36)
[2022-07-03] MEDS: MoRPHine SULFATE 2 MG/ML CARP IV PRN (22:48)
[2022-07-03] MEDS: ONDANSETRON INJ 2 MG/ML 2 ML VIAL IV PRN (23:19)
[2022-07-04] MEDS: ACETAMINOPHEN 325 MG TAB PO PRN ×2 (01:01→21:19)
[2022-07-04] MEDS: [UNRECOGNIZED DRUG - REMARK] PO PRN (01:29)
[2022-07-04] MEDS: LEVOTHYROXINE SODIUM 100 MCG TABLET PO SCH (05:35)
[2022-07-04] MEDS: INSULIN ASPART PER UNIT SC SCH ×4 (09:45→21:08)
[2022-07-04] MEDS: LANTUS PER UNIT CHARGE SQ SCH ×2 (09:45→21:08)
[2022-07-04] MEDS: oxyCODONE HCL IR 5 MG TAB (IMMEDIATE RELEASE) PO PRN ×2 (09:51→21:19)
[2022-07-04] MEDS: [UNRECOGNIZED DRUG - REMARK] PO SCH ×3 (09:51→21:20)
[2022-07-04] MEDS: DIVALPROEX DELAY RELEASE 500 MG TAB PO SCH (09:51)
[2022-07-04] MEDS: [UNRECOGNIZED DRUG - REMARK] PO SCH (09:51)
[2022-07-04] MEDS: VENLAFAXINE HCL XR 150 MG CAPXR PO SCH (09:52)
[2022-07-04] MEDS: UMECLIDINIUM BROMIDE 62.5MCG/BLISTER 7 PUFFS/INHALER INH SCH (09:52)
[2022-07-04] MEDS: LINACLOTIDE 145 MCG CAPSULE PO SCH (09:53)
[2022-07-04] MEDS: CYANOCOBALAMIN (B-12) 500 MCG TABLET PO SCH (09:53)
[2022-07-04] MEDS: DOCUSATE SODIUM 100 MG CAP PO SCH ×2 (09:53→21:17)
[2022-07-04] MEDS: VENLAFAXINE HCL XR 75 MG CAPXR PO SCH (09:53)
[2022-07-04] MEDS: PANTOprazole 40 MG TAB PO SCH ×2 (09:53→21:18)
[2022-07-04] MEDS: ADVANCED PROBIOTIC 1250 MG CAPSULE PO SCH (09:54)
[2022-07-04] MEDS: APIXABAN 5 MG TABLET PO SCH ×2 (09:54→21:16)
[2022-07-04] MEDS: DICYCLOMINE HCL 10 MG CAP PO SCH ×2 (09:54→21:17)
[2022-07-04] MEDS: LORATADINE 10 MG TAB PO SCH (09:55)
--- NOTE | 2022-07-04 12:11 | Pharmacy Report ---
Pharmacy Glycemic Short Note 2 - Date of Service July 04, 2022 - Glycemic Short BSG Results (Last 24 hours): 07/03/22 07/03/22 07/04/22 16:11 19:51 07:39 POC Glucose 159 H 214 H 167 H 07/04/22 11:26 POC Glucose 157 H OUTPATIENT ANTIDIABETIC REGIMEN: * Lantus 50 units SC HS * Novolog 25 units SC AC * Trulicity 4.5 mg SC every * HbA1c: 7.4% (06/27/22) ASSESSMENT: 07/04: * Connie received a total of 173 units of insulin yesterday, 80 units basal + 93 units bolus. BSGs were: 095-319-922-214 mg/dL. * Fasting BSG today was 167 mg/dL. Will increase basal slightly today. * Continue with current Novolog coverage. Patient remains on Daptomycin and Ceftriaxone. * Of note, spoke with RN today who states patient is difficult to cover carbs due to continuous snacking throughout the day. 07/02: * BSGs yesterday were 224-098-101-164 mg/dL. Patient received 149 units of insulin (80 units of basal and 69 units of bolus). * Fasting today is 177 mg/dL which is trending down. Continue basal. * BSGs steady yesterday - Novolog had been tightened yesterday. Continue. 07/01: * BSGs largely above goal the last 24h: 758-793-493-173mg/dL. Patient received 55 units of basal and 81 units of bolus insulin yesterday. * Continues on antibiotics and tolerating diet. * Despite a 20% increase in basal yesterday, fasting BSG actually increased this AM. Will give additional 10 units of Lantus this AM and 60 units tonight for total 70 units. Novolog parameters tightened further d/t persistent prandial hyperglycemia. PLAN FOR INPATIENT GLYCEMIC CONTROL: * Hold outpatient Trulicity * Basal insulin * Lantus 45 units SC BID * Bolus insulin * NovoLog per scale ACHS or Q6hrs while NPO * Goal Range: Low 110 mg/dL - High 140 mg/dL * Correction Factor: 8 mg/dL/unit * Nutritional / Prandial insulin per carb ratio of 1 unit per 2 grams CHO consumed
--- NOTE | 2022-07-04 15:41 | Hospitalist Progress Note ---
Date of Service July 04, 2022 Assessment & Plan (1) UTI (urinary tract infection): Plan: Patient is a 37 yr female with H/O spina bifida, bilateral below-knee amputations due to MRSA infection, wheelchair-bound, diabetes mellitus type 2, on insulin, morbid obesity, hypothyroidism, depression/bipolar disorder, chronic hypoxic hypercarbic respiratory failure, on 2 to 3 L of O2 via nasal cannula, BiPAP at night, s/p CREATIVE COORDINATOR shunt , s/p cystectomy who presents with abdominal pain, flank pain. Complicated urinary tract infection-POA H/O cystectomy/Ileal conduit related UTI --CT ABD:Bilateral nephrolithiasis without ureteral calculi. Mild left-sided pe lviectasis with urothelial thickening. No bowel obstruction or bowel wall thickening. Unchanged right pleural effusion with right pleural drainage catheter and bibasilar opacities suggestive of atelectasis. Chronic and postoperative changes as above. --H/O recurrent Pseudomonal UTI -- Urine culture growing Klebsiella, Morganella, Enterococcus --Blood Culture: Negative to date --Vaginal culture: mrsa --Appreciate ID input Will plan to complete 14 day course of IV antibiotic therapy --Monitor CPK -- Continue daptomycin, cefepime transition to Rocephin --Last day of antibiotics is 07/09/22 Plan to discharge likely tomorrow Abdominal Pain Unclear etiology --CT ABD:Bilateral nephrolithiasis without ureteral calculi. Mild left-sided pelviectasis with urothelial thickening. Correlate with urinalysis to exclude infection. No bowel obstruction or bowel wall thickening. Unchanged right pleural effusion with right pleural drainage catheter and bibasilar opacities suggestive of atelectasis. Chronic and postoperative changes as above. --Repeat CT ABD:No acute abnormalities are seen. Chronic right pleural effusion with a drainage catheter in place, similar to prior exam. -Appreciate Surgery Input - Abd pain pain resolved Groin cellulitis Seen by PCP few days ago and was started on doxycycline -Hold doxycycline -Continue IV antibiotics as above Continue Wound care Monitor DM II on insulin -Continue ISS, basal insulin --Monitor BGs -glycemic pharmacy consulted Hypothyroidism -Continue levothyroxine Chronic hypoxic, hypercarbic respiratory failure on oxygen/BiPAP at night Obesity hypoventilation syndrome, sleep apnea -Continue supplemental oxygen, BiPAP at night Bipolar disorder, depression -Continue home meds H/O spina bifida S/P ventriculoperitoneal shunt Chronic migraines Continue home medications Advised to follow up with Neurosurgery as outpatient Morbid obesity BMI 46 H/O PE On apixaban Code Status Full Code Admission and Anticipated Discharge Date Admission Date: June 26, 2022 Subjective Patient is seen and examined at bedside States having left sided flank discomfort Reports chronic headache No other complaints Denies any chest pain, shortness of breath, dizziness, nausea, abd pain Review of Systems Review of Systems: All systems reviewed & are unremarkable except as noted in Subjective Physical Exam Physical Exam: Physical Exam: Vitals signs as noted above General Appearance:Morbidly Obese, no apparent distress Head: normocephalic, Atraumatic Eyes: normal inspection, EOMI Neck: supple, Trachea midline Respiratory/Chest: Normal breath sounds, CTA, No accessory muscle use Cardiovascular: S1, S2, No murmur Abdomen/GI:Soft, tender, +Ostomy, R groin lesion, Bowel sounds present Extremities/Musculoskeletal:normal inspection, no edema, B/L BKA Neurologic/Psych:AAOX3, grossly no focal neurological deficits Skin: normal color, warm Results & Data Results & Data ([facility]) Vital Signs (Past 12 Hours) Vital Signs Temp Pulse Resp BP Pulse Ox O2 Del Method O2 Flow Rate 07/04/22 11:44 36.8 C 87 20 126/72 91 Room Air 07/04/22 07:59 36.6 C 89 20 129/76 91 Room Air 07/04/22 05:33 36.6 C 85 22 105/65 91 Nasal Cannula 2
[2022-07-04] MEDS: cefTRIAXone SODIUM 2,000 MG in DEXTROSE 5% 50 ML IV SCH (17:45)
[2022-07-04] MEDS: FUROSEMIDE 40 MG TAB PO SCH (17:45)
[2022-07-04] MEDS: DAPTOmycin 500 MG in SYRINGE 0 ML IV SCH (17:46)
[2022-07-04] MEDS: HEPARIN 100 UNIT/ML 5ML FLUSH FLUSH PRN (20:14)
[2022-07-04] MEDS: ONDANSETRON INJ 2 MG/ML 2 ML VIAL IV PRN (20:14)
[2022-07-04] MEDS: ATENOLOL 50 MG TABLET PO SCH (21:17)
[2022-07-04] MEDS: CETIRIZINE HCL 10 MG TABLET PO SCH (21:18)
[2022-07-04] MEDS: traZODone HCL 100 MG TAB PO SCH (21:18)
[2022-07-04] MEDS: MONTELUKAST SODIUM 10 MG TABLET PO SCH (21:18)
[2022-07-04] MEDS: FAMOTIDINE 40 MG TABLET PO SCH (21:18)
[2022-07-04] MEDS: FLUTICASONE/VILANTEROL 200/25MCG 14 PUFFS/INHALER INH SCH (21:21)
[2022-07-04] MEDS: clonazePAM 0.5 MG TAB PO SCH (21:28)
[2022-07-05] MEDS: MoRPHine SULFATE 2 MG/ML CARP IV PRN
[2022-07-05] MEDS: HEPARIN 100 UNIT/ML 5ML FLUSH FLUSH PRN
[2022-07-05] MEDS: ACETAMINOPHEN 325 MG TAB PO PRN (02:20)
[2022-07-05] MEDS: oxyCODONE HCL IR 5 MG TAB (IMMEDIATE RELEASE) PO PRN (02:20)
[2022-07-05] MEDS: LEVOTHYROXINE SODIUM 100 MCG TABLET PO SCH (05:39)
[2022-07-05] MEDS: [UNRECOGNIZED DRUG - REMARK] PO SCH ×2 (09:53→13:18)
[2022-07-05] MEDS: [UNRECOGNIZED DRUG - REMARK] PO PRN (09:54)
[2022-07-05] MEDS: [UNRECOGNIZED DRUG - REMARK] PO SCH (09:54)
[2022-07-05] MEDS: PANTOprazole 40 MG TAB PO SCH (09:54)
[2022-07-05] MEDS: DICYCLOMINE HCL 10 MG CAP PO SCH (09:54)
[2022-07-05] MEDS: DIVALPROEX DELAY RELEASE 500 MG TAB PO SCH (09:55)
[2022-07-05] MEDS: UMECLIDINIUM BROMIDE 62.5MCG/BLISTER 7 PUFFS/INHALER INH SCH (09:55)
[2022-07-05] MEDS: DOCUSATE SODIUM 100 MG CAP PO SCH (09:55)
[2022-07-05] MEDS: VENLAFAXINE HCL XR 150 MG CAPXR PO SCH (09:55)
[2022-07-05] MEDS: LORATADINE 10 MG TAB PO SCH (09:55)
[2022-07-05] MEDS: ADVANCED PROBIOTIC 1250 MG CAPSULE PO SCH (09:56)
[2022-07-05] MEDS: LINACLOTIDE 145 MCG CAPSULE PO SCH (09:56)
[2022-07-05] MEDS: VENLAFAXINE HCL XR 75 MG CAPXR PO SCH (09:57)
[2022-07-05] MEDS: APIXABAN 5 MG TABLET PO SCH (09:57)
[2022-07-05] MEDS: INSULIN ASPART PER UNIT SC SCH ×2 (10:04→13:17)
[2022-07-05] MEDS: LANTUS PER UNIT CHARGE SQ SCH (10:05)
--- NOTE | 2022-07-05 13:46 | Hospitalist Progress Note ---
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 Complicated urinary tract infection-POA H/O cystectomy/Ileal conduit related UTI --CT ABD:Bilateral nephrolithiasis without ureteral calculi. Mild left-sided pe lviectasis with urothelial thickening. No bowel obstruction or bowel wall thickening. Unchanged right pleural effusion with right pleural drainage catheter and bibasilar opacities suggestive of atelectasis. Chronic and postoperative changes as above. --H/O recurrent Pseudomonal UTI -- Urine culture growing Klebsiella, Morganella, Enterococcus --Blood Culture: Negative to date --Vaginal culture: mrsa --Appreciate ID input Will plan to complete 14 day course of IV antibiotic therapy --Monitor CPK -- Continue daptomycin, cefepime transition to Rocephin --Last day of antibiotics is 07/09/22 Plan to discharge home today Abdominal Pain Unclear etiology --CT ABD:Bilateral nephrolithiasis without ureteral calculi. Mild left-sided pelviectasis with urothelial thickening. Correlate with urinalysis to exclude infection. No bowel obstruction or bowel wall thickening. Unchanged right pleural effusion with right pleural drainage catheter and bibasilar opacities suggestive of atelectasis. Chronic and postoperative changes as above. --Repeat CT ABD:No acute abnormalities are seen. Chronic right pleural effusion with a drainage catheter in place, similar to prior exam. -Appreciate Surgery Input - Abd pain pain resolved Groin cellulitis Seen by PCP few days ago and was started on doxycycline -Hold doxycycline -Continue IV antibiotics as above Continue Wound care Monitor DM II on insulin -Continue ISS, basal insulin --Monitor BGs -glycemic pharmacy consulted Hypothyroidism -Continue levothyroxine Chronic hypoxic, hypercarbic respiratory failure on oxygen/BiPAP at night Obesity hypoventilation syndrome, sleep apnea -Continue supplemental oxygen, BiPAP at night Bipolar disorder, depression -Continue home meds H/O spina bifida S/P ventriculoperitoneal shunt Chronic migraines Continue home medications Advised to follow up with Neurosurgery as outpatient Morbid obesity BMI 46 H/O PE On apixaban Code Status Full Code Admission and Anticipated Discharge Date Admission Date: June 26, 2022 Subjective Patient is seen and examined at bedside Reports chronic headache otherwise feels well Denies any chest pain, shortness of breath, dizziness, nausea, abd pain Plan to discharge home today Review of Systems Review of Systems: All systems reviewed & are unremarkable except as noted in Subjective Physical Exam Physical Exam: Physical Exam: Vitals signs as noted above General Appearance:Morbidly Obese, no apparent distress Head: normocephalic, Atraumatic Eyes: normal inspection, EOMI Neck: supple, Trachea midline Respiratory/Chest: Normal breath sounds, CTA, No accessory muscle use Cardiovascular: S1, S2, No murmur Abdomen/GI:Soft, tender, +Ostomy, R groin lesion, Bowel sounds present Extremities/Musculoskeletal:normal inspection, no edema, B/L BKA Neurologic/Psych:AAOX3, grossly no focal neurological deficits Skin: normal color, warm Results & Data Results & Data ([facility]) Vital Signs (Past 12 Hours) Vital Signs Temp Pulse Resp BP Pulse Ox O2 Del Method 07/05/22 11:36 36.8 C 88 16 109/70 90 Room Air 07/05/22 08:08 36.8 C 84 18 133/81 91 Room Air 07/05/22 06:03 86 18 124/74 Room Air 07/05/22 02:57 36.9 C 91 H 20 118/73 91 Room Air
--- NOTE | 2022-07-05 14:01 | Discharge Summary ---
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 Patient lives with her mother, who is a primary caregiver. Currently in the ED also presents with mom. Reports having nausea, and vomiting cellulitis in groin area for which she has been seen at primary care office and was prescribed doxycycline. She has history of migraine headaches, and also reports history of headaches recently. Reports diffuse abdominal pain, patient has ostomy and reports loose output. Denies fever, chills, but reports weakness which she says is typical for her when she does not feel well/has infection. In the ED she was given IV fluids, and IV morphine. She has allergies to multiple antibiotics. UA was obtained and consistent with possible UTI. ED provider contacted infectious disease physician at [facility], and discussed further work-up. Recommended CT abdomen pelvis which was obtained and showed urothelial thickening. Admission Exam Per Admitting Provider Physical Exam Constitutional: WD/WN, vitals as above (morbidly obese) Eyes: PERRL, conjunctivae normal, anicteric sclerae ENMT: external ear and nose normal, oropharynx normal Neck: + thick neck Respiratory: normal respiratory effort, lungs clear to auscultation (somewhat diminished breath sounds) Cardiovascular: Rate/Rhythm: regular rate and regular rhythm Chest (Breasts): Chest: normal inspection of chest (+ port R upper chest) Gastrointestinal (Abdomen): soft, obese, diffusely mildly tender to palp., + ostomy (liquid output noted), + urinary catheter (yellow urine noted) Musculoskeletal: Extremities: + lower leg abnormality (b/l BKA) Skin: warm, dry (+ groin erythema) Neurologic: PERRL, EOMI, accommodation nl, no face palsy, no dysarthria Psychiatric: A+Ox3, euthymic affect Genitourinary: + urinary catheter Lymphatic: no lymphedema Principal Diagnosis Complicated urinary tract infection Groin Cellulitis Discharge Data Allergies Allergy/AdvReac Type Severity Reaction Status Date / Time chlorhexidine Allergy Severe blisters Verified 06/26/22 15:22 adhesive Allergy Intermediate TAPE- HIVES Verified 06/26/22 15:22 ciprofloxacin Allergy Intermediate hives Verified 06/26/22 15:22 clindamycin Allergy Intermediate Redness/Itc Verified 06/26/22 15:22 hiness imipenem Allergy Intermediate May Verified 06/26/22 15:22 use-See comment levofloxacin Allergy Intermediate rash,HEARD Verified 06/26/22 15:22 VOICES linezolid Allergy Intermediate rash Verified 06/26/22 15:22 vancomycin Allergy Intermediate May use - Verified 06/26/22 15:22 See comment piperacillin [From Zosyn] Allergy Mild may Verified 06/26/22 15:22 use-see comment tazobactam [From Zosyn] Allergy Mild See Verified 06/26/22 15:22 piperacillin comment amikacin Allergy Unknown PER DR Verified 06/26/22 15:22 ROBINS,RXN WAS TO ZOSYN NOT AMKrash;hives onabotulinumtoxinA Allergy Unknown Rash/swelling Verified 06/26/22 15:22 [From Botox] at injection site buspirone AdvReac Severe HALLUCINATI Verified 06/26/22 15:22 ONS latex AdvReac Mild Rash Verified 06/26/22 15:22 Consultations 06/26/22 14:35 ED Decision to Admit Stat 06/26/22 16:01 Consult Infectious Diseases Routine 06/30/22 15:09 Consult General Surgery Routine Procedures Performed Laboratory Results WBC 8.00 K/ul (4.8-10.8) 07/02/22 04:46 RBC 3.39 M/uL (4.20-5.40) L 07/02/22 04:46 Hgb 10.5 g/dl (12.0-16.0) L 07/02/22 04:46 Hct 33.7 % (37.0-47.0) L 07/02/22 04:46 MCV 99.4 fL (80.0-100.0) 07/02/22 04:46 MCH 31.0 pg (25.0-34.0) 07/02/22 04:46 MCHC 31.2 g/dL (32.0-36.0) L 07/02/22 04:46 RDW Std Deviation 64.2 fL (36.4-46.3) H 07/02/22 04:46 RDW Coeff of Neda 17.6 % (11.5-14.5) H 07/02/22 04:46 Plt Count 231 K/uL (130-400) 07/02/22 04:46 MPV 10.3 fL (9.4-12.4) 07/02/22 04:46 Immature Gran % (Auto) 0.3 % 06/26/22 10:10 Neut % (Auto) 65.1 % 06/26/22 10:10 Lymph % (Auto) 26.4 % 06/26/22 10:10 [place] % (Auto) 5.3 % 06/26/22 10:10 Eos % (Auto) 2.6 % 06/26/22 10:10 Baso % (Auto) 0.3 % 06/26/22 10:10 Neut # (Auto) 4.81 K/uL (1.4-6.5) 06/26/22 10:10 Lymph # (Auto) 1.95 K/uL (1.2-3.4) 06/26/22 10:10 [place] # (Auto) 0.39 K/uL (0.24-0.82) 06/26/22 10:10 Eos # (Auto) 0.19 K/uL (0-0.50) 06/26/22 10:10 Baso # (Auto) 0.02 K/uL (0-0.2) 06/26/22 10:10 Immature Gran # (Auto) 0.02 K/uL (0.00-0.02) 06/26/22 10:10 PT 12.9 Seconds (9.0-12.0) H 06/26/22 10:10 INR 1.2 (0.9-1.1) H 06/26/22 10:10 APTT 28.8 Seconds (21.0-31.0) 07/02/22 04:46 PTT Ratio 1.0 07/02/22 04:46 Sodium 138 mmol/L (136-145) 07/03/22 05:51 Potassium 4.0 mmol/L (3.5-5.1) 07/03/22 05:51 Chloride 101 mmol/L (98-107) 07/03/22 05:51 Carbon Dioxide 31 mmol/L (21-32) 07/03/22 05:51 Anion Gap 6 (3-11) 07/03/22 05:51 BUN 19 mg/dl (6-23) 07/03/22 05:51 Creatinine 0.41 mg/dl (0.6-1.2) L 07/03/22 05:51 Est Cr Clr Drug Dosing 224.6 ml/min 07/03/22 05:51 Est GFR ( Amer) > 150.0 ml/min 07/03/22 05:51 Est GFR (Non-Af Amer) 133.9 ml/min 07/03/22 05:51 BUN/Creatinine Ratio 46.3 (10-20) H 07/03/22 05:51 Glucose 171 mg/dl (70-99(Fasting)) H 07/03/22 05:51 POC Glucose 200 mg/dl (70-99) H 07/05/22 11:16 Estimat Average Glucose 166 mg/dl 06/27/22 08:03 Hemoglobin A1c 7.4 % (4.5-5.6) H 06/27/22 08:03 Calcium 8.8 mg/dl (8.5-10.1) 07/03/22 05:51 Phosphorus 3.9 mg/dl (2.5-4.9) 06/28/22 06:19 Magnesium 1.7 mg/dl (1.7-2.4) 07/03/22 05:51 Total Bilirubin 0.4 mg/dl (0.2-1.0) 06/27/22 08:03 AST 18 U/L (13-39) 06/27/22 08:03 ALT 13 U/L (7-52) 06/27/22 08:03 Alkaline Phosphatase 86 U/L (34-104) 06/27/22 08:03 Total Creatine Kinase < 10 U/L (26-192) L 06/29/22 08:04 Troponin I High Sens 3.3 pg/ml (0-14) 07/02/22 04:46 Total Protein 6.8 gm/dl (6.0-8.3) 06/27/22 08:03 Albumin 3.2 gm/dl (3.4-5.0) L 06/27/22 08:03 Globulin 3.6 gm/dl (2.5-4.0) 06/27/22 08:03 Albumin/Globulin Ratio 0.9 (0.9-2) 06/27/22 08:03 Lipase 25 U/L (11-82) 06/26/22 10:10 Urine Color Yellow 06/27/22 13:47 Urine Appearance Cloudy (Clear) A 06/27/22 13:47 Urine pH 6.0 (4.5-7.5) 06/27/22 13:47 Ur Specific [place] 1.013 (1.000-1.030) 06/27/22 13:47 Urine Protein Negative (Negative) 06/27/22 13:47 Urine Glucose (UA) Negative (Negative) 06/27/22 13:47 Urine Ketones Negative (Negative) 06/27/22 13:47 Urine Blood Negative (Negative) 06/27/22 13:47 Urine Nitrite Negative (Negative) 06/27/22 13:47 Urine Bilirubin Negative (Negative) 06/27/22 13:47 Urine Urobilinogen Negative (Negative) 06/27/22 13:47 Ur Leukocyte Esterase 1+ (Negative) H 06/27/22 13:47 Urine WBC (Auto) 10-30 /hpf (0-5) H 06/27/22 13:47 Urine RBC (Auto) 5-10 /hpf (0-4) H 06/27/22 13:47 U Hyaline Cast (Auto) 1-5 /lpf (0-5) 06/27/22 13:47 U Epithel Cells (Auto) >30 /lpf (0-5) H 06/27/22 13:47 Urine Bacteria (Auto) Negative (Negative) 06/27/22 13:47 Ur Renal Epithelial Cell Not Reportable 06/27/22 13:47 Urine Crystals Not Reportable 06/27/22 13:47 Urine Mucus Present (None Prsent) A 06/27/22 13:47 Urine Yeast Not Reportable 06/27/22 13:47 Stl C. diff Tox B Gene Negative Cdiff Gene (Neg) 06/28/22 Unknown SARS-CoV-2 (PCR) NEGATIVE (Negative) 06/26/22 11:00 Influenza Type A (PCR) Negative (Neg) 06/26/22 11:00 Influenza Type B (PCR) Negative (Neg) 06/26/22 11:00 RSV (RT-PCR) Negative (Neg) 06/26/22 11:00 Staphylococcus sp PCR DETECTED (NotDetected) A 06/26/22 14:13 mecA/C-Methicil Resis Gene DETECTED (NotDetected) A 06/26/22 14:13 Staph epidermidis (PCR) DETECTED (NotDetected) A 06/26/22 14:13 Bld Cult ID Panel PCR See PCR Comment (NotDetected) 06/26/22 14:[address] 06/26/22 10:28 CT head/brain wo con CLINICAL HISTORY: 37 years-old Female with FRIED, 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 Acute headache with a ventricular peritoneal shunt catheter TECHNIQUE: Multiple axial CT images of the head were obtained without contrast. A dose lowering technique was utilized adhering to the principles of ALARA. COMPARISON: Head CT 11/30/2020 FINDINGS: Midline developmental abnormalities are redemonstrated with low-lying cerebellar tonsils. Stable positioning of the right-sided ventriculostomy catheter with distal tip terminating within the right lateral ventricle. Decompressed ventricles. No acute intracranial hemorrhage, midline shift, abnormal extra axial collection, hydrocephalus or intracranial mass. No acute or subacute territorial infarct identified. 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 The calvarium is intact. Hyperostosis frontalis interna. Prior bilateral lens repair. The paranasal sinuses, mastoid air cells, and middle ear cavities are clear. IMPRESSION: 1. Stable findings as above without acute intracranial abnormality. 2. Unchanged positioning of the right frontal approach ventriculostomy catheter. 3. No hydrocephalus. ACT 112: Negative or not required by law. The above report was generated using voice recognition software. It may contain grammatical, syntax or spelling errors. Electronically signed by: Scar Martino M.D. 06/26/2022 1:00 PM Abdomen/Pelvis CT 06/30/22 10:39 CT abd pelvis wo con CLINICAL HISTORY: abd pain TECHNIQUE: Helical axial images of the abdomen and pelvis were obtained. Automated dose lowering techniques and/or adjustment according to patient size were utilized for this exam. This exam was performed without intravenous contrast. CT DOSE: 1811.80 mGy.cm COMPARISON: Comparison is made to CT abdomen pelvis 06/26/2022 FINDINGS: Lower chest: Right pleural drainage catheter is seen. There is a [id number] right pleural effusion with associated atelectasis. Left atelectasis is seen. Liver: Unremarkable. No focal lesions are seen. Gallbladder and biliary tree: Patient is status post cholecystectomy. No intra- or extrahepatic biliary ductal dilation. Pancreas: Unremarkable, no focal lesions. Spleen: Unremarkable. Adrenals: Unremarkable. Kidneys and ureters: Nonobstructive nephrolithiasis is seen. Left renal artery and cysts are again noted. Bladder: Status post cystectomy with neobladder creation. Reproductive organs: Intrauterine device is noted. Bowel: The appendix is normal. Postsurgical changes of bowel resection with Rajinder pouch formation and colectomy in the left lower quadrant. Lymph nodes Retroperitoneal: Unremarkable. Pelvic: Unremarkable. Mesenteric: Calcified calcified nodes Peritoneum: Normal. Vessels: Unremarkable. Abdominal wall: A fat-containing umbilical hernia is seen. Muscular atrophy is seen. 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 IMPRESSION: 1. No acute abnormalities are seen. 2. Chronic right pleural effusion with a drainage catheter in place, similar to prior exam. ACT 112: Negative or not required by law. Electronically signed by: Rudy Fragoso M.D. 06/30/2022 12:45 PM Chest CTA 07/02/22 04:09 CT ANGIOGRAPHY OF THE CHEST, PULMONARY EMBOLUS PROTOCOL CLINICAL HISTORY: Shortness of breath. Chest pain. Evaluate for pulmonary embolus. COMPARISON STUDY: Chest CT June 14, 2020 and chest radiograph June 13, 2022. TECHNIQUE: Following IV administration of 120 mL of Optiray, helical axial images of the chest were obtained utilizing the pulmonary embolus protocol. Maximal intensity projections and sagittal and coronal reformats were viewed on an independent 3D workstation. IV contrast was administered without complication. Automated exposure control was utilized for the study. A dose lowering technique was utilized adhering to the principles of ALARA. CT DOSE: 844.21 mGy.cm FINDINGS: No pulmonary emboli are identified. There is no thoracic dissection. No pericardial effusion is present. Mild cardiomegaly. A small to moderate right pleural effusion has mildly increased when compared to prior chest CT. A right ventricular pleural catheter remains in place. Segmental right lower lobe atelectasis is noted. There is no pneumothorax. No consolidation is identified to suggest pneumonia. There is no thoracic lymphadenopathy. Portion of a previous left-sided venous catheter within the left brachiocephalic vein is noted. A right internal jugular central venous catheter is in place. IMPRESSION: 1. No pulmonary emboli identified. 2. Small to moderate right pleural effusion with segmental right lower lobe atelectasis. Right ventricular pleural shunt catheter in place. ACT 112: Negative or not required by law. Electronically signed by: Ryan Boone M.D. 07/02/2022 7:50 AM Ordered Studies 06/26/22 10:28 CT head/brain wo con Stat 06/26/22 10:38 CT abd pelvis wo con Stat 06/30/22 10:39 CT Abd and Pelvis [CT abd pelvis wo con] Urgent 07/02/22 04:09 CT angio chest PE protocol Urgent Hospital Course (1) UTI (urinary tract infection): Patient is a 37 yr female with H/O spina bifida, bilateral below-knee amputations due to MRSA infection, wheelchair-bound, diabetes mellitus type 2, on insulin, morbid obesity, hypothyroidism, depression/bipolar disorder, chronic hypoxic hypercarbic respiratory failure, on 2 to 3 L of O2 via nasal cannula, BiPAP at night, 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 Complicated urinary tract infection-POA H/O cystectomy/Ileal conduit related UTI --CT ABD:Bilateral nephrolithiasis without ureteral calculi. Mild left-sided pelviectasis with urothelial thickening. No bowel obstruction or bowel wall thickening. Unchanged right pleural effusion with right pleural drainage catheter and bibasilar opacities suggestive of atelectasis. Chronic and postoperative changes as above. --H/O recurrent Pseudomonal UTI -- Urine culture growing Klebsiella, Morganella, Enterococcus --Blood Culture: Negative to date --Vaginal culture: mrsa --Appreciate ID input Will plan to complete 14 day course of IV antibiotic therapy --Monitor CPK -- Continue daptomycin, cefepime transition to Rocephin --Last day of antibiotics is 07/09/22 Plan to discharge home today Abdominal Pain Unclear etiology --CT ABD:Bilateral nephrolithiasis without ureteral calculi. Mild left-sided pelviectasis with urothelial thickening. Correlate with urinalysis to exclude infection. No bowel obstruction or bowel wall thickening. Unchanged right pleural effusion with right pleural drainage catheter and bibasilar opacities suggestive of atelectasis. Chronic and postoperative changes as above. --Repeat CT ABD:No acute abnormalities are seen. Chronic right pleural effusion with a drainage catheter in place, similar to prior exam. -Appreciate Surgery Input - Abd pain pain resolved Groin cellulitis Seen by PCP few days ago and was started on doxycycline -Hold doxycycline -Continue IV antibiotics as above Continue Wound care Monitor DM II on insulin -Continue ISS, basal insulin --Monitor BGs -glycemic pharmacy consulted Hypothyroidism -Continue levothyroxine Chronic hypoxic, hypercarbic respiratory failure on oxygen/BiPAP at night Obesity hypoventilation syndrome, sleep apnea -Continue supplemental oxygen, BiPAP at night Bipolar disorder, depression -Continue home meds H/O spina bifida S/P ventriculoperitoneal shunt Chronic migraines Continue home medications Advised to follow up with Neurosurgery as outpatient Morbid obesity BMI 46 H/O PE On apixaban Code Status Full Code Total Time Total Time Spent Total Time Spent (In Minutes): 50 minutes Discharge Plan Discharge Items Patient Disposition: Home - Self-Care Reason For Visit: ABDOMINAL PAIN, HEADACHE Discharge Diagnosis: Complicated urinary tract infection Groin Cellulitis Activity: Per Instructions section Exercise/Sports: Wait until after follow-up appointment Non-emergency contact: Primary Care Provider Call non-emergency contact if: you have any medication questions, your symptoms worsen, your pain is concerning for you and you have a fever Follow-up/Referrals: Candie Clemons MD [Primary Care Provider] - (Date & Time 07/11/2022 11:20 AM Provider Candie Clemons MD Department Family Practice [facility] ) Diet: Carb Consistent or DM2 Addtl Attending Provider Instructions: Follow-up with your primary care physician on 07/11/2022 11:20 AM -- Complete antibiotic course IV daptomycin, ceftriaxone until 07/09/22 as prescribed. Seek immediate medical attention if your symptoms reoccur or worsen Please take all medications as instructed on discharge list below. Please call if you have any questions or problems. You can reach a [facility] hospitalist on duty at [facility] 24 hours a day by calling [phone] Pending Studies at Discharge: No Stand-Alone Forms: My [facility] [employer], Smoking Cessation Medications and DC Order Prescriptions: Continued ferrous sulfate [Iron (ferrous sulfate)] 325 mg (65 mg iron) tablet 325 mg PO BID cyanocobalamin (vitamin B-12) 1,000 mcg capsule 1,000 mcg PO Q OTHER DAY Digestive Advantage Prob Gummy 250 million cell tablet,chewable 250 cell PO DAILY nystatin 100,000 unit/gram cream 1 applic topical BID PRN (Reason: Skin Irritation) magnesium sulfate 100 mg capsule 400 mg PO Q OTHER DAY (DME) Wheelchair (Powered) Device See Rx Instructions .Route Qty: 1 0RF Rx Instructions: wheelchair repair- left arm (DME) Hospital Bed Homecare Misc See Rx Instructions .Route Qty: 1 0RF Rx Instructions: REPLACEMENT HOSPITAL BED MATTRESS (DME) Powered Wheelchair Misc See Rx Instructions .Route Qty: 1 0RF Rx Instructions: REPAIR AND LABOR albuterol sulfate [ProAir HFA] 90 mcg/actuation HFA aerosol inhaler 2 inh INH Q6H PRN (Reason: Shortness Of Breath Or Wheezing) Qty: 8 3RF (DME) Hospital Bed Misc See Rx Instructions .Route Qty: 1 0RF Rx Instructions: As directed semi electric bed with side rails and mattress fluticasone propion-salmeterol [Advair Diskus] 500-50 mcg/dose blister with device 1 inh INHALATION BID Qty: 60 5RF levalbuterol HCl 0.63 mg/3 mL solution for nebulization See Rx Instructions .ROUTE .COMPLEX Qty: 90 1RF Dose Instruction: INHALE 1 VIAL VIA NEBULIZER EVERY 6 HOURS NEEDED FOR SHORTNESS OF BREATH Rx Instructions: INHALE 1 VIAL VIA NEBULIZER EVERY 6 HOURS NEEDED FOR SHORTNESS OF BREATH (DME) Mattress (Air or other) Misc See Rx Instructions .Route Qty: 1 0RF Rx Instructions: ALTERNATING PRESSURE MATTRESS FOR HOSPITAL BED Eliquis 5 mg tablet 5 mg PO BID Qty: 60 5RF famotidine 40 mg tablet 40 mg PO HS Qty: 90 3RF (DME) FreeStyle Fara 2 Sensor Kit See Rx Instructions miscellaneous .MEDSUPPLY Qty: 2 11RF Rx Instructions: Change q 14 days to monitor glucose. (DME) pen needle, diabetic [BD Ultra-Fine Mini Pen Needle] 31 gauge x 3/16" needle See Rx Instructions .ROUTE .MEDSUPPLY Qty: 200 3RF Rx Instructions: Use to inject insulin QID riboflavin (vitamin B2) 400 mg tablet 400 mg PO QAM loxapine succinate 5 mg capsule 5 mg PO QID PRN (Reason: Anxiety) Spiriva Respimat 2.5 mcg/actuation mist 2 inh inhalation DAILY Trulicity 4.5 mg/0.5 mL pen injector 4.5 mg subcut Q7D 90 Days Qty: 6 1RF Rx Instructions: PHARMACY DID NOT HAVE ON HAND----THURSDAYS divalproex [Depakote] 250 mg tablet,delayed release (DR/EC) 1,500 mg PO QAM cyclobenzaprine 5 mg tablet 5 mg PO TID PRN (Reason: muscle spasm) atenolol 100 mg tablet 100 mg PO HS docusate sodium [Colace] 100 mg capsule 100 mg PO BID (DME) [employer] PDM Kit (Gen 4) Misc See Rx Instructions .Route Qty: 1 0RF Rx Instructions: As directed (DME) Breather Pods (Gen 4) Cartridge See Rx Instructions .Route Qty: 15 11RF Rx Instructions: As directed to change pod every 2 days Linzess 145 mcg capsule 145 mcg PO QAM polyethylene glycol 3350 [Miralax] 17 gram/dose Powder 17 g PO TID PRN (Reason: Constipation) venlafaxine [Effexor XR] 75 mg capsule,extended release 24hr 75 mg PO QAM Rx Instructions: TAKE WITH 150MG CAPSULE = 225MG DAILY. trazodone 150 mg tablet 300 mg PO HS Rexulti 4 mg tablet 4 mg PO QAM venlafaxine 150 mg Tablet Extended Release 24hr 150 mg PO QAM Rx Instructions: TAKE WITH 75MG CAPSULE = 225MG DAILY. PNV cmb#95-ferrous fumarate-FA [] 28 mg iron- 800 mcg Tablet 1 tab PO QDL acetaminophen [Tylenol Extra Strength] 500 mg Tablet 500 - 1,000 mg PO DIRECTED PRN (Reason: Pain) montelukast [Singulair] 10 mg tablet 10 mg PO PM levothyroxine [Synthroid] 100 mcg tablet 100 mcg PO QAM dicyclomine 10 mg Capsule 20 mg PO BID clorazepate dipotassium 3.75 mg Tablet 3.75 mg PO TID loratadine 10 mg Tablet 20 mg PO QAM (DME) Omnipod Dash Intro Kit (Gen 4) Cartridge SUBCUT furosemide 40 mg tablet 40 mg PO QDD cetirizine 10 mg tablet 10 mg PO DAILY PRN (Reason: PRIOR TO ANTIBIOTICS) Rx Instructions: GIVE 45 MINUTES PRIOR TO ANTIBIOTICS!!!! clonazepam 0.5 mg Tablet 0.5 mg PO HS Rx Instructions: administer 30 minutes before bedtime menthol-zinc oxide [Calmoseptine] 0.44-20.6 % Ointment 1 applic TOPICAL DIRECTED PRN (Reason: UNDER XEROFOAM TO BUTTOCKS) Rx Instructions: APPLY TO SORE ON BUTTOCKS, THEN APPLY XEROFOAM TO AREA. (DME) XEROFORM Misc atorvastatin 40 mg tablet 40 mg PO QDD ondansetron 8 mg tablet,disintegrating 8 mg translingual Q6H PRN (Reason: NAUSEA/VOMITING) Rx Instructions: TAKE 1 TABLET SUBLINGUALLY EVERY 6 HOURS NEEDED FOR NAUSEA pantoprazole 40 mg tablet,delayed release (DR/EC) 40 mg PO BID Rx Instructions: TAKE 1 TABLET BY MOUTH TWICE A DAY insulin aspart U-100 [Novolog FlexPen U-100 Insulin] 100 unit/mL (3 mL) insulin pen 25 unit subcut TID Rx Instructions: DOSE 25 UNITS PLUS SLIDING SCALE WITH carb ratio insulin glargine [Lantus Solostar U-100 Insulin] 100 unit/mL (3 mL) insulin pen 50 unit subcut HS Discontinued doxycycline hyclate 100 mg Tablet 100 mg PO BID Rx Instructions: STARTED 06/23/22 FOR 10 DAYS. Discharge Orders: Discharge Order (Routine); Ordered 07/05/22 Ordered By: Grant Layton/Other Patient Handouts: Managing Type 2 Diabetes, 5 Steps for Eating Healthier Admission Data Admit Date/Time: 06/26/22 15:29 Attending Provider: Grant Rubin Admit Provider: Omar Cavazos Primary Care Provider: Candie Clemons Other Providers: Omar Cavazos ; Frandy Kirk ; Brown Barrett ; Darian Jacobo I. ; Shon Chase II ; Nohemi Burgos ; Werner Almanza ; Rocael Weaver ; Spencer Ortiz ; Jayson Washington ; Werner Melendez ; Myriam Watkins ; Naila Watts ; Sourav Ramirez ; Jean Marie Cain ; Latoya Mcgee ; Mamta Bernal ; Rocael Le Jr ; Selene Pacheco ; Benedict Rey ; Nata Barr. ; [facility] ; [facility]
[2022-07-05] MEDS ORDERED: DAPTOmycin 500 MG in SYRINGE 0 ML IV ONE (14:15)
== END 2022-07-05 17:45 | disposition home health service (06) | DRG 699 ==
LOC: ED 09:27 → 2E 15:29 → SUATTDRO 15:29 → 2E 16:33

== ENCOUNTER 2022-07-26 14:46 | Inpatient (IN) ==
[2022-07-26 16:36] LABS: Basophils # (auto) 0.02 K/uL (0-0.2); Basophils % (auto) 0.2 %; Eosinophils # (auto) 0.19 K/uL (0-0.50); Eosinophils % (auto) 1.6 %; Hematocrit (blood only) 43.7 % (37.0-47.0); Hemoglobin 13.6 g/dl (12.0-16.0); Immature Granulocytes # (auto) 0.04 K/uL (0.01-0.20); Immature Granulocytes % (auto) 0.3 %; Lymphocytes # (auto) 2.31 K/uL (1.2-3.4); Lymphocytes % (auto) 19.8 %; Mean Corpuscular Hemoglobin 30.2 pg (25.0-34.0); Mean Corpuscular Hgb Conc 31.1 g/dL (32.0-36.0); Mean Corpuscular Volume 96.9 fL (80.0-100.0); Mean Platelet Volume 10.4 fL (9.4-12.4); Monocytes # (auto) 0.81 K/uL (0.11-0.59); Monocytes % (auto) 6.9 %; Neutrophils # (auto) 8.32 K/uL (1.40-6.50); Neutrophils % (auto) 71.2 %; Platelet Count 286 K/uL (130-400); RDW Coefficient of Variation 17.2 % (11.5-14.5); RDW Standard Deviation 61.7 fL (36.4-46.3); Red Blood Count 4.51 M/uL (4.20-5.40); White Blood Count 11.69 K/ul (4.8-10.8)
[2022-07-26 16:52] LABS: Alanine Aminotransferase 14 U/L (7-52); Albumin Globulin Ratio 0.8 (0.9-2); Albumin Level 3.8 gm/dl (3.4-5.0); Alkaline Phosphatase 83 U/L (34-104); Anion Gap 9 (3-11); Aspartate Aminotransferase 15 U/L (13-39); BUN Creatinine Ratio 54.3 (10-20); Bilirubin,Total 0.3 mg/dl (0.2-1.0); Blood Urea Nitrogen 25 mg/dl (6-23); Calcium 9.1 mg/dl (8.5-10.1); Carbon Dioxide 28 mmol/L (21-32); Chloride 100 mmol/L (98-107); Est GFR (African American) 149.4 ml/min; Est GFR (Non-African American) 128.9 ml/min; Globulin 4.7 gm/dl (2.5-4.0); Glucose 160 mg/dl (70-99(Fasting)); Potassium 3.1 mmol/L (3.5-5.1); Sodium 137 mmol/L (136-145); Total Protein 8.5 gm/dl (6.0-8.3)
--- NOTE | 2022-07-26 17:07 | Emergency Department Note ---
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 08/25/22 21:42 Last Admin: 07/26/22 22:29 Dose: Not Given Documented By: SERGE Divalproex Sodium (Divalproex Extended Release 500 Mg Tab) 1,500 mg PO QAM [facility] Stop: 08/26/22 08:59 Last Admin: 07/27/22 08:36 Dose: 1,500 mg Documented By: ARY Docusate Sodium (Docusate Sodium 100 Mg Cap) 100 mg PO BID [facility] Stop: 08/25/22 21:42 Last Admin: 07/26/22 22:29 Dose: Not Given Documented By: SERGE Tobramycin Sulfate 480 mg/ (Dextrose) 112 mls @ 100 mls/hr IV Q24H [facility]; Protocol Stop: 08/05/22 17:29 Last Infusion: 07/26/22 19:33 Dose: 0 mls/hr Documented By: Admin: 07/26/22 18:05 Dose: 100 mls/hr Documented By: CURTIS Potassium Chloride/Sodium Chloride (Normal Saline W/20 Meq Kcl) 20 meq in 1,000 mls @ 80 mls/hr IV .[id number] [facility] Stop: 07/27/22 11:14 Last Infusion: 07/27/22 12:06 Dose: 0 mls/hr Documented By: Admin: 07/26/22 23:19 Dose: 80 mls/hr Documented By: SERGE Ceftazidime/Avibactam 2.5 gm/ (Sodium Chloride) 62 mls @ 31 mls/hr IV Q8H [facility] Stop: 08/06/22 13:59 Last Infusion: 07/27/22 16:35 Dose: 0 mls/hr Documented By: Admin: 07/27/22 14:31 Dose: 31 mls/hr Documented By: ARY Tobramycin Sulfate 380 mg/ (Dextrose) 109.5 mls @ 100 mls/hr IV Q24H [facility] Stop: 07/28/22 19:06 Last Infusion: 07/28/22 18:27 Dose: 0 mls/hr Documented By: Admin: 07/28/22 17:09 Dose: 100 mls/hr Documented By: Infusion: 07/27/22 19:48 Dose: 0 mls/hr Documented By: Admin: 07/27/22 18:25 Dose: 100 mls/hr Documented By: ARY Magnesium Sulfate/Dextrose (Magnesium Sulfate / D5w) 1 gm in 100 mls @ 50 mls/hr IV ONE ONE Stop: 07/28/22 10:59 Last Infusion: 07/28/22 13:07 Dose: 0 mls/hr Documented By: Admin: 07/28/22 10:13 Dose: 50 mls/hr Documented By: MAGNOLIA Insulin Glargine (Lantus Per Unit Charge) 40 units SQ ONE ONE Stop: 07/26/22 23:31 Last Admin: 07/26/22 23:37 Dose: 40 units Documented By: SERGE Co-signed By: ESTRELLA Insulin Glargine (Lantus Per Unit Charge) 40 units SQ ONE ONE Stop: 07/27/22 08:31 Last Admin: 07/27/22 09:07 Dose: 40 units Documented By: ARY Co-signed By: DODIE Insulin Glargine (Lantus Per Unit Charge) 0 units SQ HS ONE; Protocol Stop: 07/27/22 21:01 Last Admin: 07/27/22 20:47 Dose: 30 units Documented By: SERGE Co-signed By: KARMA Insulin Glargine (Lantus Per Unit Charge) 40 units SQ BID [facility] Stop: 08/27/22 08:59 Last Admin: 07/28/22 21:28 Dose: 40 units Documented By: GIRISH Co-signed By: MARY ELLEN Admin: 07/28/22 09:03 Dose: 40 units Documented By: DTT Co-signed By: DODIE Non-Formulary Medication (Clorazepate Dipotassium) 3.75 mg PO TID [facility] Stop: 08/25/22 21:42 Last Admin: 07/26/22 23:20 Dose: Not Given Documented By: SERGE Ondansetron HCl (Ondansetron Inj 2 Mg/Ml 2 Ml Vial) 4 mg IV NOW STA Stop: 07/26/22 17:31 Last Admin: 07/26/22 18:03 Dose: 4 mg Documented By: CURTIS Ondansetron HCl (Ondansetron Inj 2 Mg/Ml 2 Ml Vial) Confirm Administered Dose 4 mg .ROUTE .STK-MED ONE Stop: 07/26/22 22:09 Last Admin: 07/26/22 22:15 Dose: 4 mg Documented By: SERGE Potassium Chloride (Potassium Chloride Crtab 20 Meq Tabcr) 40 meq PO NOW STA Stop: 07/26/22 17:51 Last Admin: 07/26/22 18:02 Dose: 40 meq Documented By: CURTIS Potassium Chloride (Potassium Chloride Crtab 20 Meq Tabcr) 40 meq PO ONE ONE Stop: 07/28/22 09:01 Last Admin: 07/28/22 10:13 Dose: 40 meq Documented By: MAGNOLIA Fluticasone/Salmeterol (Fluticasone/Salmeterol (Advair) 500/50 Inh 14 Puff) 1 puffs INH BID [facility] Stop: 08/25/22 21:42 Last Admin: 07/26/22 22:43 Dose: Not Given Documented By: SERGE Discharge Plan Visit Data Chief Complaint: Urinary Symptoms Stated Complaint: BLADDER INFECTION ED Provider: Earl Rawls Discharge Problem: Complicated urinary tract infection, Nausea, Chronic indwelling Meade catheter Patient Disposition: Admitted As Inpatient Discharge Instructions Interventions: ED Discharge Assessment Last Done: 07/26/22 21:29
[2022-07-26] MEDS ORDERED: ONDANSETRON INJ 2 MG/ML 2 ML VIAL IV STA (17:30)
[2022-07-26] MEDS ORDERED: DEXTROSE 5% IV SCH (17:30)
[2022-07-26] MEDS ORDERED: TOBRAMYCIN CONSULT ACTIVE PRN ×2 (17:30→21:43)
[2022-07-26] MEDS ORDERED: TOBRAMYCIN SULFATE IV SCH (17:30)
[2022-07-26] MEDS ORDERED: POTASSIUM CHLORIDE CRTAB 20 MEQ TABCR PO STA (17:50)
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
[2022-07-26 21:12] LABS: Appearance Urine Cloudy (Clear); Bacteria Urine Automated Negative (Negative); Bilirubin Urine Negative (Negative); Blood Urine 2+ (Negative); Color Urine Yellow; Glucose Urine UA Negative (Negative); Ketones Urine Negative (Negative); Leukocyte Esterase Urine 1+ (Negative); Nitrite Urine Negative (Negative); Protein Urine Trace (Negative); Specific Gravity Urine 1.015 (1.000-1.030); Urobilinogen Urine Negative (Negative); WBC Urine Automated >30 /hpf (0-5); pH Urine 6.5 (4.5-7.5)
[2022-07-26] MEDS ORDERED: CARBOHYDRATES FOR HYPOGLYCEMIA PO PRN (21:43)
[2022-07-26] MEDS ORDERED: DEXTROSE 50% 50 ML SYRINGE IV PRN (21:43)
[2022-07-26] MEDS ORDERED: DICYCLOMINE HCL 10 MG CAP PO SCH (21:43)
[2022-07-26] MEDS ORDERED: GLUCAGON FOR INJ 1 MG VIAL SQ PRN (21:43)
[2022-07-26] MEDS ORDERED: PHARMACY GLYCEMIC MGMT CONSULT PRN (21:43)
[2022-07-26] MEDS ORDERED: FLUTICASONE/SALMETEROL (ADVAIR) 500/50 INH 14 PUFF INH SCH (21:43)
[2022-07-26] MEDS ORDERED: LEVALBUTEROL HCL 0.63 MG/3 ML NEB INH PRN (21:43)
[2022-07-26] MEDS ORDERED: GLUCOSE 40% GEL 15 GM TUBE PO PRN (21:43)
[2022-07-26] MEDS ORDERED: DOCUSATE SODIUM 100 MG CAP PO SCH (21:43)
[2022-07-26] MEDS ORDERED: ALUMINUM/MAGNESIUM SUSP 30 ML UDC PO PRN (21:43)
[2022-07-26] MEDS ORDERED: CLORAZEPATE DIPOTASSIUM 3.75 MG PO SCH (21:43)
[2022-07-26] MEDS ORDERED: GLUCOSE 10 TAB/TUBE PO PRN (21:43)
[2022-07-26] MEDS ORDERED: ACETAMINOPHEN 325 MG TAB PO PRN (21:43)
[2022-07-26] MEDS ORDERED: ONDANSETRON INJ 2 MG/ML 2 ML VIAL ONE (22:08)
[2022-07-26] MEDS: INSULIN ASPART PER UNIT SC SCH (22:39)
[2022-07-26] MEDS ORDERED: NSS + 20MEQ KCL 20 MEQ/1,000 ML BAG IV SCH (22:45)
[2022-07-26] MEDS: diazePAM 2 MG TABLET PO SCH (23:29)
[2022-07-26] MEDS: clonazePAM 0.5 MG TAB PO SCH (23:29)
[2022-07-26] MEDS ORDERED: LANTUS PER UNIT CHARGE SQ ONE (23:30)
[2022-07-26] MEDS: traZODone HCL 100 MG TAB PO SCH (23:30)
[2022-07-26] MEDS: MONTELUKAST SODIUM 10 MG TABLET PO SCH (23:31)
[2022-07-26] MEDS: PANTOprazole 40 MG TAB PO SCH (23:31)
[2022-07-26] MEDS: ATENOLOL 50 MG TABLET PO SCH (23:31)
[2022-07-26] MEDS: APIXABAN 5 MG TABLET PO SCH (23:31)
[2022-07-26] MEDS: FLUTICASONE/VILANTEROL 200/25MCG 14 PUFFS/INHALER INH SCH (23:32)
[2022-07-26] MEDS: FAMOTIDINE 40 MG TABLET PO SCH (23:32)
[2022-07-26] MEDS: NYSTATIN CR 15 GM TUBE EXT SCH (23:32)
[2022-07-26] MEDS: FERROUS SULFATE 325 MG TAB PO SCH (23:32)
[2022-07-27] MEDS: LEVOTHYROXINE SODIUM 100 MCG TABLET PO SCH (06:06)
[2022-07-27 06:35] LABS: Basophils # (auto) 0.03 K/uL (0-0.2); Basophils % (auto) 0.4 %; Eosinophils # (auto) 0.19 K/uL (0-0.50); Eosinophils % (auto) 2.5 %; Hemoglobin 11.9 g/dl (12.0-16.0); Immature Granulocytes # (auto) 0.04 K/uL (0.01-0.20); Immature Granulocytes % (auto) 0.5 %; Lymphocytes # (auto) 2.11 K/uL (1.2-3.4); Lymphocytes % (auto) 27.8 %; Mean Corpuscular Hemoglobin 29.8 pg (25.0-34.0); Mean Corpuscular Hgb Conc 30.5 g/dL (32.0-36.0); Mean Corpuscular Volume 97.7 fL (80.0-100.0); Mean Platelet Volume 10.6 fL (9.4-12.4); Monocytes # (auto) 0.63 K/uL (0.11-0.59); Monocytes % (auto) 8.3 %; Neutrophils % (auto) 60.5 %; Platelet Count 235 K/uL (130-400); RDW Standard Deviation 61.4 fL (36.4-46.3); Red Blood Count 3.99 M/uL (4.20-5.40)
[2022-07-27 07:28] LABS: Alanine Aminotransferase 12 U/L (7-52); Albumin Globulin Ratio 0.9 (0.9-2); Albumin Level 3.4 gm/dl (3.4-5.0); Alkaline Phosphatase 78 U/L (34-104); Anion Gap 5 (3-11); Aspartate Aminotransferase 10 U/L (13-39); BUN Creatinine Ratio 62.9 (10-20); Bilirubin,Total 0.3 mg/dl (0.2-1.0); Blood Urea Nitrogen 22 mg/dl (6-23); Carbon Dioxide 29 mmol/L (21-32); Chloride 104 mmol/L (98-107); Creatinine Clr Calc Pharmacy 269.2 ml/min; Est GFR (African American) > 150.0 ml/min; Globulin 3.8 gm/dl (2.5-4.0); Glucose 212 mg/dl (70-99(Fasting)); Magnesium 1.8 mg/dl (1.7-2.4); Sodium 138 mmol/L (136-145); Total Protein 7.2 gm/dl (6.0-8.3)
[2022-07-27] MEDS: INSULIN ASPART PER UNIT SC SCH ×4 (08:25→20:46)
[2022-07-27] MEDS ORDERED: LANTUS PER UNIT CHARGE SQ ONE ×2 (08:30→21:00)
[2022-07-27] MEDS: diazePAM 2 MG TABLET PO SCH ×3 (08:34→20:54)
[2022-07-27] MEDS: VENLAFAXINE HCL XR 75 MG CAPXR PO SCH (08:35)
[2022-07-27] MEDS: ADVANCED PROBIOTIC 1250 MG CAPSULE PO SCH (08:35)
[2022-07-27] MEDS: LINACLOTIDE 145 MCG CAPSULE PO SCH (08:35)
[2022-07-27] MEDS: LORATADINE 10 MG TAB PO SCH (08:36)
[2022-07-27] MEDS: VENLAFAXINE HCL XR 150 MG CAPXR PO SCH (08:36)
[2022-07-27] MEDS: UMECLIDINIUM BROMIDE 62.5MCG/BLISTER 7 PUFFS/INHALER INH SCH (08:37)
[2022-07-27] MEDS: FLUTICASONE/VILANTEROL 200/25MCG 14 PUFFS/INHALER INH SCH (08:37)
[2022-07-27] MEDS: FERROUS SULFATE 325 MG TAB PO SCH ×2 (08:38→20:59)
[2022-07-27] MEDS: APIXABAN 5 MG TABLET PO SCH ×2 (08:38→20:57)
[2022-07-27] MEDS: PANTOprazole 40 MG TAB PO SCH ×2 (08:38→20:58)
[2022-07-27] MEDS: BREXPIPRAZOLE 4 MG PO SCH (08:39)
[2022-07-27] MEDS: NYSTATIN CR 15 GM TUBE EXT SCH ×2 (08:41→20:59)
[2022-07-27] MEDS ORDERED: NON-FORMULARY MEDICATION (Tiotropium Bromide [Spiriva Respimat] 2.5 mcg/actuation mist) INH SCH (09:00)
[2022-07-27] MEDS ORDERED: NON-FORMULARY MEDICATION (Riboflavin (Vitamin B2) 400 mg tablet) PO SCH (09:00)
[2022-07-27] MEDS ORDERED: DIVALPROEX EXTENDED RELEASE 500 MG TAB PO SCH (09:00)
--- NOTE | 2022-07-27 11:33 | Pharmacy Report ---
Pharmacy Glycemic Short Note 2 - Date of Service July 27, 2022 - Glycemic Short BSG Results (Last 24 hours): 07/26/22 07/26/22 07/27/22 16:19 21:38 05:45 Glucose 160 H 212 H POC Glucose 193 H 07/27/22 07:40 Glucose POC Glucose 153 H OUTPATIENT ANTIDIABETIC REGIMEN: * Lantus 50 units HS * Novolog 25 units TID * Trulicity 4.5 mg Q7D A1C 7.4 06/27/22 ASSESSMENT: * KELLI is 37-year-old female with a history of T2DM who had a recent admission. Yesterday, she was admitted for UTI * Yesterday, BSG was 160-193 mg/dL. Received a 40 units Lantus and 4 units correctional insulin at bedtime * Today her FBSG was 153 mg/dL. Based on data from pharmacy glycemic management on past admission, started a basal of 40 units AM, and a scale for HS. Will continue NovoLog SSI PLAN FOR INPATIENT GLYCEMIC CONTROL: * Hold outpatientl diabetes medications * Basal insulin * Lantus 40 units SQ AM and /30 units scale HS * Bolus insulin * NovoLog per scale ACHS or Q6hrs while NPO * Goal Range: Low 110 mg/dL - High 140 mg/dL * Correction Factor: 12 mg/dL/unit * Nutritional / Prandial insulin per carb ratio of 1 unit per 4 grams CHO consumed
[2022-07-27] MEDS: PRENATAL VITAMIN 1 TAB PO SCH (12:00)
[2022-07-27] MEDS: HEPARIN 100 UNIT/ML 5ML FLUSH FLUSH PRN (12:09)
--- NOTE | 2022-07-27 12:17 | Hospitalist Progress Note ---
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 Complicated UTI, POA H/O Cystectomy with Ileal Conduit H/O recurrent MDRO UTI H/O recurrent Pseudomonas UTI -- Blood, urine culture pending Empirically on IV tobramycin Infectious disease consult pending Will consider CT abdomen if persistent abdominal pain Leukocytosis resolved Hypokalemia Dehydration Replace electrolytes as needed Monitor Labial/Groin wound, POA consulted wound care Follows [facility] wound clinic per mother pt was using Calmoseptine, xeroform and nystatin Previous surface culture grew MRSA contact precautions Continue wound care Vaginal discharge Recently completed a course of Diflucan Work-up pending DM II on insulin HbA1c 7.4 06/2022 Continue ISS basal insulin-Monitor BGs glycemic pharmacy consulted HTN Continue atenolol, Lasix Hypothyroidism Continue levothyroxine Chronic hypoxic, hypercarbic respiratory failure on oxygen/BiPAP at night Obesity hypoventilation syndrome, sleep apnea Continue supplemental oxygen, BiPAP at night Bipolar disorder, depression Continue home meds H/O spina bifida S/P ventriculoperitoneal shunt Chronic migraines Continue home medications Morbid obesity BMI 46 H/O PE On Apixaban Code Status FULL CODE Admission and Anticipated Discharge Date Admission Date: July 26, 2022 Subjective Patient is seen and examined at bedside States having some abdominal/Flank pain Also reports nausea but no vomiting Denies any chest pain, dyspnea, dizziness No other complaints Review of Systems Review of Systems: All systems reviewed & are unremarkable except as noted in Subjective Physical Exam Physical Exam: Physical Exam: Vitals signs as noted above General Appearance:Morbidly Obese, no apparent distress Head: normocephalic, Atraumatic Eyes: normal inspection, EOMI Neck: supple, Trachea midline Respiratory/Chest: Normal breath sounds, CTA, No accessory muscle use Cardiovascular: S1, S2, No murmur Abdomen/GI:Soft, non tender, +Ostomy, Bowel sounds present Extremities/Musculoskeletal:normal inspection, no edema, B/L BKA Neurologic/Psych:AAOX3, grossly no focal neurological deficits Skin: normal color, warm, +l multiple small skin tear Results & Data Results & Data ([facility]) Vital Signs (Past 12 Hours) Vital Signs Temp Pulse Resp BP BP Pulse Ox O2 Del Method 07/27/22 10:54 36.5 C 84 20 120/70 95 Room Air 07/27/22 10:21 Room Air 07/27/22 07:42 36.4 C L 78 121/76 96 Room Air 07/27/22 03:00 36.6 C 85 16 122/65 97 Room Air Laboratory Results Short CBC 07/26/22 07/27/22 Range/Units 16:19 05:45 WBC 11.69 H 7.60 (4.8-10.8) K/ul Hgb 13.6 11.9 L (12.0-16.0) g/dl Hct 43.7 39.0 (37.0-47.0) % Plt Count 286 235 (130-400) K/uL BMP 07/26/22 07/27/22 16:19 05:45 Sodium 137 138 Potassium 3.1 L 4.0 D Chloride 100 104 Carbon Dioxide 28 29 BUN 25 H 22 Creatinine 0.46 L 0.35 L Glucose 160 H 212 H Calcium 9.1 9.0 Liver Function 07/26/22 07/27/22 Range/Units 16:19 05:45 Total Bilirubin 0.3 0.3 (0.2-1.0) mg/dl AST 15 10 L (13-39) U/L ALT 14 12 (7-52) U/L Alkaline Phosphatase 83 78 (34-104) U/L Albumin 3.8 3.4 (3.4-5.0) gm/dl Urine 07/26/22 Range/Units 20:50 Urine Color Yellow Urine Appearance Cloudy A (Clear) Urine pH 6.5 (4.5-7.5) Ur Specific [place] 1.015 (1.000-1.030) Urine Protein Trace H (Negative) Urine Glucose (UA) Negative (Negative)
[2022-07-27] MEDS: ATORVASTATIN 40 MG TAB PO SCH (17:04)
[2022-07-27] MEDS: FUROSEMIDE 40 MG TAB PO SCH (17:04)
[2022-07-27] MEDS ORDERED: TOBRAMYCIN CONSULT ACTIVE PRN (17:26)
[2022-07-27] MEDS: ONDANSETRON INJ 2 MG/ML 2 ML VIAL IV PRN (18:25)
[2022-07-27] MEDS: oxyCODONE HCL IR 5 MG TAB (IMMEDIATE RELEASE) PO PRN (18:25)
[2022-07-27] MEDS: DEXTROSE 5% IV SCH (18:25)
[2022-07-27] MEDS: TOBRAMYCIN SULFATE IV SCH (18:25)
[2022-07-27] MEDS: DICYCLOMINE HCL 10 MG CAP PO PRN (20:54)
[2022-07-27] MEDS: clonazePAM 0.5 MG TAB PO SCH (20:54)
[2022-07-27] MEDS: traZODone HCL 100 MG TAB PO SCH (20:55)
[2022-07-27] MEDS: ATENOLOL 50 MG TABLET PO SCH (20:56)
[2022-07-27] MEDS: FAMOTIDINE 40 MG TABLET PO SCH (20:57)
[2022-07-27] MEDS: MONTELUKAST SODIUM 10 MG TABLET PO SCH (20:58)
[2022-07-27] MEDS: MICONAZOLE NITRATE POWDER 43 GM EXT SCH (20:59)
[2022-07-28] MEDS: ONDANSETRON INJ 2 MG/ML 2 ML VIAL IV PRN ×4 (00:08→17:13)
[2022-07-28] MEDS: oxyCODONE HCL IR 5 MG TAB (IMMEDIATE RELEASE) PO PRN (05:08)
[2022-07-28] MEDS: LEVOTHYROXINE SODIUM 100 MCG TABLET PO SCH (05:36)
[2022-07-28 06:40] LABS: Hematocrit (blood only) 37.3 % (37.0-47.0); Hemoglobin 11.6 g/dl (12.0-16.0); Mean Corpuscular Hemoglobin 29.7 pg (25.0-34.0); Mean Corpuscular Hgb Conc 31.1 g/dL (32.0-36.0); Mean Corpuscular Volume 95.4 fL (80.0-100.0); Mean Platelet Volume 10.7 fL (9.4-12.4); Platelet Count 227 K/uL (130-400); RDW Coefficient of Variation 16.8 % (11.5-14.5); RDW Standard Deviation 59.6 fL (36.4-46.3); Red Blood Count 3.91 M/uL (4.20-5.40); White Blood Count 8.16 K/ul (4.8-10.8)
[2022-07-28 06:47] LABS: Anion Gap 7 (3-11); BUN Creatinine Ratio 43.6 (10-20); Blood Urea Nitrogen 17 mg/dl (6-23); Calcium 8.9 mg/dl (8.5-10.1); Carbon Dioxide 29 mmol/L (21-32); Chloride 101 mmol/L (98-107); Creatinine Clr Calc Pharmacy 238.7 ml/min; Est GFR (African American) > 150.0 ml/min; Est GFR (Non-African American) 136.1 ml/min; Glucose 172 mg/dl (70-99(Fasting)); Magnesium 1.6 mg/dl (1.7-2.4); Potassium 3.3 mmol/L (3.5-5.1); Sodium 137 mmol/L (136-145)
[2022-07-28] MEDS ORDERED: MAGNESIUM SULFATE / D5W 1 GM/100 ML BAG IV ONE (09:00)
[2022-07-28] MEDS ORDERED: NON-FORMULARY MEDICATION (Fluticasone-Umeclidin-Vilanter [Trelegy Ellipta] 100-62.5-25 mcg INH SCH (09:00)
[2022-07-28] MEDS ORDERED: CYANOCOBALAMIN (B-12) 500 MCG TABLET PO SCH (09:00)
[2022-07-28] MEDS ORDERED: POTASSIUM CHLORIDE CRTAB 20 MEQ TABCR PO ONE (09:00)
[2022-07-28] MEDS: LANTUS PER UNIT CHARGE SQ SCH ×2 (09:03→21:28)
[2022-07-28] MEDS: INSULIN ASPART PER UNIT SC SCH ×4 (09:03→21:27)
[2022-07-28] MEDS: DIVALPROEX EXTENDED RELEASE 500 MG TAB PO SCH (09:04)
[2022-07-28] MEDS: PANTOprazole 40 MG TAB PO SCH ×2 (09:04→19:27)
[2022-07-28] MEDS: diazePAM 2 MG TABLET PO SCH ×3 (09:04→21:31)
[2022-07-28] MEDS: VENLAFAXINE HCL XR 150 MG CAPXR PO SCH (09:04)
[2022-07-28] MEDS: FERROUS SULFATE 325 MG TAB PO SCH ×2 (09:04→19:27)
[2022-07-28] MEDS: LINACLOTIDE 145 MCG CAPSULE PO SCH (09:04)
[2022-07-28] MEDS: APIXABAN 5 MG TABLET PO SCH ×2 (09:04→19:26)
[2022-07-28] MEDS: ADVANCED PROBIOTIC 1250 MG CAPSULE PO SCH (09:04)
[2022-07-28] MEDS: VENLAFAXINE HCL XR 75 MG CAPXR PO SCH (09:05)
[2022-07-28] MEDS: BREXPIPRAZOLE 4 MG PO SCH (09:05)
[2022-07-28] MEDS: LORATADINE 10 MG TAB PO SCH (09:05)
[2022-07-28] MEDS: NYSTATIN CR 15 GM TUBE EXT SCH ×2 (09:05→19:29)
[2022-07-28] MEDS: UMECLIDINIUM BROMIDE 62.5MCG/BLISTER 7 PUFFS/INHALER INH SCH (09:05)
[2022-07-28] MEDS: FLUTICASONE/VILANTEROL 200/25MCG 14 PUFFS/INHALER INH SCH (09:05)
[2022-07-28] MEDS: MICONAZOLE NITRATE POWDER 43 GM EXT SCH ×2 (09:06→19:29)
[2022-07-28] MEDS: PRENATAL VITAMIN 1 TAB PO SCH (12:52)
--- NOTE | 2022-07-28 13:16 | Pharmacy Report ---
Pharmacy Glycemic Short Note 2 - Date of Service July 28, 2022 - Glycemic Short BSG Results (Last 24 hours): 07/27/22 07/27/22 07/28/22 16:17 19:46 05:49 Glucose 172 H POC Glucose 259 H 232 H 07/28/22 07/28/22 07:15 11:34 Glucose POC Glucose 162 H 167 H OUTPATIENT ANTIDIABETIC REGIMEN: * Lantus 50 units HS * Novolog 25 units TID * Trulicity 4.5 mg Q7D A1C 7.4 06/27/22 ASSESSMENT: 07/28/22 * BSGs yesterday were 670-452-285-232 mg/dL. * Patient received 135 units of insulin (70 units of basal and 65 units of bolus). Fasting today is 162 mg/dL. * Will resume previous regimen - Lantus 40 units BID plus Novolog. BACKGROUND * KELLI is 37-year-old female with a history of T2DM who had a recent admission. Yesterday, she was admitted for UTI * Yesterday, BSG was 160-193 mg/dL. Received a 40 units Lantus and 4 units correctional insulin at bedtime * Today her FBSG was 153 mg/dL. Based on data from pharmacy glycemic management on past admission, started a basal of 40 units AM, and a scale for HS. Will continue NovoLog SSI PLAN FOR INPATIENT GLYCEMIC CONTROL: * Hold outpatientl diabetes medications * Basal insulin * Lantus 40 units SQ BID * Bolus insulin * NovoLog per scale ACHS or Q6hrs while NPO * Goal Range: Low 110 mg/dL - High 140 mg/dL * Correction Factor: 8 mg/dL/unit * Nutritional / Prandial insulin per carb ratio of 1 unit per 2 grams CHO consumed
[2022-07-28 13:24] LABS: Chlam trach RNA(Genit,Ureth,Ur Not Detected (NotDetected); GC(Neis gon)RNA(Genit,Ureth,Ur Not Detected (NotDetected)
[2022-07-28 13:39] LABS: Trichomonas vag RNA GenitalFem Not Detected (NotDetected)
--- NOTE | 2022-07-28 13:41 | CT Scan Report ---
CT OF THE ABDOMEN AND PELVIS WITHOUT CONTRAST CLINICAL HISTORY: Abd/flank pain R >L COMPARISON STUDY: CT of the abdomen and pelvis June 30, 2022. TECHNIQUE: Axial images of the abdomen and pelvis were obtained without IV contrast. Images were revi ewed in the axial, sagittal, and coronal planes. Automated exposure control was utilized for the sagar dy. A dose lowering technique was utilized adhering to the principles of ALARA. FINDINGS: A right ventriculopleural shunt catheter remains in place. A small right pleural effusion w ith right lower lobe airspace opacity similar to prior exam. No pneumatosis, free air or portal venou s gas is present. Evaluation of the abdomen and pelvis is suboptimal on this unenhanced exam. There i s no biliary ductal dilatation status post cholecystectomy. Liver, spleen, adrenal glands and pancrea s are unremarkable. Cystectomy with right lower quadrant urostomy is noted. Urothelial thickening is greater within the left collecting system and left ureter. This is similar to prior exams. Slight asy mmetric dilatation of the left ureter and collecting system is unchanged. There is no significant hyd ronephrosis. Small bilateral renal calculi measure up to 2 mm. There are no ureteral calculi. There i s no evidence for a bowel obstruction. No evidence for acute appendicitis. Descending colostomy is no john. Intrauterine device is in place. There is no ascites. No fluid collection is identified. 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 IMPRESSION: 1. No significant change in appearance of the abdomen or pelvis. 2. Punctate bilateral renal calculi. No ureteral calculi or hydronephrosis. No change in a lateral ur othelial thickening. 3. No bowel obstruction. No bowel wall thickening on unenhanced exam. No evidence for acute appendici tis. ACT 112: Negative or not required by law. Electronically signed by: Ryan Boone M.D. 07/28/2022 1:40 PM
[2022-07-28 14:22] LABS: Bacterial Vaginosis NEGATIVE (NEGATIVE); Candida Species DNA NOT DETECTED (NOT DETECTED); Chlamydia Trach RNA NOT DETECTED (NOT DETECTED); GC (Neis gonorrhoeae) RNA NOT DETECTED (NOT DETECTED); Trichomonas vaginalis RNA NOT DETECTED (NOT DETECTED)
--- NOTE | 2022-07-28 16:12 | Hospitalist Progress Note ---
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 Complicated UTI, POA H/O Cystectomy with Ileal Conduit H/O recurrent MDRO UTI H/O recurrent Pseudomonas UTI --CT ABD:No significant change in appearance of the abdomen or pelvis. Punctate bilateral renal calculi. No ureteral calculi or hydronephrosis. No change in a lateral urothelial thickening. No bowel obstruction. No bowel wall thickening on unenhanced exam. No evidence for acute appendicitis. -- Blood Culture: Negative to date --Urine culture from 07/23/2022: Pseudomonas, Enterobacter --Repeat urine culture negative Continue IV tobramycin for 3 days and stop Appreciate Infectious disease Input Hypokalemia Dehydration Replace electrolytes as needed Monitor Labial/Groin wound, POA consulted wound care Follows [facility] wound clinic per mother pt was using Calmoseptine, xeroform and nystatin Previous surface culture grew MRSA contact precautions Continue wound care Vaginal discharge Recently completed a course of Diflucan DM II on insulin HbA1c 7.4 06/2022 Continue ISS basal insulin-Monitor BGs glycemic pharmacy consulted HTN Continue atenolol, Lasix Hypothyroidism Continue levothyroxine Chronic hypoxic, hypercarbic respiratory failure on oxygen/BiPAP at night Obesity hypoventilation syndrome, sleep apnea Continue supplemental oxygen, BiPAP at night Bipolar disorder, depression Continue home meds H/O spina bifida S/P ventriculoperitoneal shunt Chronic migraines Continue home medications Morbid obesity BMI 46 H/O PE On Apixaban Code Status FULL CODE Admission and Anticipated Discharge Date Admission Date: July 26, 2022 Subjective Patient is seen and examined at bedside Reports persistent abdominal/Flank pain R> L associated with spasms today Has nausea but no vomiting Denies any chest pain, dyspnea, dizziness Review of Systems Review of Systems: All systems reviewed & are unremarkable except as noted in Subjective Physical Exam Physical Exam: Physical Exam: Vitals signs as noted above General Appearance:Morbidly Obese, no apparent distress Head: normocephalic, Atraumatic Eyes: normal inspection, EOMI Neck: supple, Trachea midline Respiratory/Chest: Normal breath sounds, CTA, No accessory muscle use Cardiovascular: S1, S2, No murmur Abdomen/GI:Soft, non tender, +Ostomy, Bowel sounds present Extremities/Musculoskeletal:normal inspection, no edema, B/L BKA Neurologic/Psych:AAOX3, grossly no focal neurological deficits Skin: normal color, warm, +l multiple small skin tear Results & Data Results & Data ([facility]) Vital Signs (Past 12 Hours) Vital Signs Temp Pulse Pulse Resp BP BP Pulse Ox 07/28/22 08:00 88 07/28/22 08:00 07/28/22 11:10 36.4 C L 85 16 107/74 07/28/22 07:16 36.7 C 78 18 133/76 91 O2 Del Method 07/28/22 08:00 07/28/22 08:00 Room Air 07/28/22 11:10 Room Air 07/28/22 07:16 Room Air Laboratory Results Short CBC 07/28/22 Range/Units 05:49 WBC 8.16 (4.8-10.8) K/ul Hgb 11.6 L (12.0-16.0) g/dl Hct 37.3 (37.0-47.0) % Plt Count 227 (130-400) K/uL BMP 07/28/22 05:49 Sodium 137 Potassium 3.3 L Chloride 101 Carbon Dioxide 29 BUN 17 Creatinine 0.39 L Glucose 172 H Calcium 8.9
[2022-07-28] MEDS: DEXTROSE 5% IV SCH (17:09)
[2022-07-28] MEDS: TOBRAMYCIN SULFATE IV SCH (17:09)
[2022-07-28] MEDS: ATORVASTATIN 40 MG TAB PO SCH (17:12)
[2022-07-28] MEDS: FUROSEMIDE 40 MG TAB PO SCH (17:12)
[2022-07-28] MEDS: FAMOTIDINE 40 MG TABLET PO SCH (19:26)
[2022-07-28] MEDS: clonazePAM 0.5 MG TAB PO SCH (19:26)
[2022-07-28] MEDS: ATENOLOL 50 MG TABLET PO SCH (19:27)
[2022-07-28] MEDS: traZODone HCL 100 MG TAB PO SCH (19:28)
[2022-07-28] MEDS: MONTELUKAST SODIUM 10 MG TABLET PO SCH (19:28)
[2022-07-29] MEDS: LEVOTHYROXINE SODIUM 100 MCG TABLET PO SCH (06:00)
[2022-07-29 06:03] LABS: Hematocrit (blood only) 35.3 % (37.0-47.0); Hemoglobin 11.2 g/dl (12.0-16.0); Mean Corpuscular Hemoglobin 30.2 pg (25.0-34.0); Mean Corpuscular Hgb Conc 31.7 g/dL (32.0-36.0); Mean Corpuscular Volume 95.1 fL (80.0-100.0); Mean Platelet Volume 10.6 fL (9.4-12.4); Platelet Count 217 K/uL (130-400); RDW Coefficient of Variation 16.9 % (11.5-14.5); RDW Standard Deviation 59.7 fL (36.4-46.3); Red Blood Count 3.71 M/uL (4.20-5.40); White Blood Count 8.18 K/ul (4.8-10.8)
[2022-07-29 06:17] LABS: Anion Gap 5 (3-11); BUN Creatinine Ratio 42.1 (10-20); Blood Urea Nitrogen 16 mg/dl (6-23); Calcium 9.1 mg/dl (8.5-10.1); Carbon Dioxide 31 mmol/L (21-32); Chloride 101 mmol/L (98-107); Creatinine Clr Calc Pharmacy 243.9 ml/min; Est GFR (African American) > 150.0 ml/min; Est GFR (Non-African American) 137.2 ml/min; Glucose 191 mg/dl (70-99(Fasting)); Magnesium 1.7 mg/dl (1.7-2.4); Potassium 3.3 mmol/L (3.5-5.1); Sodium 137 mmol/L (136-145)
[2022-07-29] MEDS: INSULIN ASPART PER UNIT SC SCH ×2 (08:05→11:58)
[2022-07-29] MEDS: DIVALPROEX EXTENDED RELEASE 500 MG TAB PO SCH (08:06)
[2022-07-29] MEDS: NYSTATIN CR 15 GM TUBE EXT SCH (08:07)
[2022-07-29] MEDS: LINACLOTIDE 145 MCG CAPSULE PO SCH (08:07)
[2022-07-29] MEDS: DICYCLOMINE HCL 10 MG CAP PO PRN (08:07)
[2022-07-29] MEDS: VENLAFAXINE HCL XR 150 MG CAPXR PO SCH (08:08)
[2022-07-29] MEDS: LORATADINE 10 MG TAB PO SCH (08:08)
[2022-07-29] MEDS: ADVANCED PROBIOTIC 1250 MG CAPSULE PO SCH (08:08)
[2022-07-29] MEDS: UMECLIDINIUM BROMIDE 62.5MCG/BLISTER 7 PUFFS/INHALER INH SCH (08:08)
[2022-07-29] MEDS: FLUTICASONE/VILANTEROL 200/25MCG 14 PUFFS/INHALER INH SCH (08:08)
[2022-07-29] MEDS: APIXABAN 5 MG TABLET PO SCH (08:09)
[2022-07-29] MEDS: PRENATAL VITAMIN 1 TAB PO SCH (08:09)
[2022-07-29] MEDS: FERROUS SULFATE 325 MG TAB PO SCH (08:09)
[2022-07-29] MEDS: PANTOprazole 40 MG TAB PO SCH (08:09)
[2022-07-29] MEDS: BREXPIPRAZOLE 4 MG PO SCH (08:10)
[2022-07-29] MEDS: VENLAFAXINE HCL XR 75 MG CAPXR PO SCH (08:24)
[2022-07-29] MEDS: MICONAZOLE NITRATE POWDER 43 GM EXT SCH (08:35)
[2022-07-29] MEDS: diazePAM 2 MG TABLET PO SCH (08:35)
[2022-07-29] MEDS ORDERED: LANTUS PER UNIT CHARGE SQ SCH (09:00)
[2022-07-29] MEDS ORDERED: POTASSIUM CHLORIDE CRTAB 20 MEQ TABCR PO SCH (09:00)
[2022-07-29] MEDS ORDERED: MAGNESIUM OXIDE 400 MG TAB PO SCH (10:00)
--- NOTE | 2022-07-29 10:06 | Pharmacy Report ---
Pharmacy Glycemic Short Note 2 - Date of Service July 29, 2022 - Glycemic Short BSG Results (Last 24 hours): 07/28/22 07/28/22 07/28/22 11:34 16:17 20:03 Glucose POC Glucose 167 H 183 H 198 H 07/29/22 07/29/22 05:47 07:35 Glucose 191 H POC Glucose 202 H OUTPATIENT ANTIDIABETIC REGIMEN: * Lantus 50 units HS * Novolog 25 units TID * Trulicity 4.5 mg Q7D A1C 7.4 06/27/22 ASSESSMENT: 07/29/22 * Connie received 155 units of insulin yesterday with adequate glycemic control. * 80 units of Lantus + 75 units of Novolog * Fasting BSG of 202 mg/dL is above goal. Will increase Lantus and change to dose per scale. * Post prandial BSGs are slightly elevated but acceptable. 07/28/22 * BSGs yesterday were [phone] mg/dL. * Patient received 135 units of insulin (70 units of basal and 65 units of bolus). Fasting today is 162 mg/dL. * Will resume previous regimen - Lantus 40 units BID plus Novolog. BACKGROUND * KELLI is 37-year-old female with a history of T2DM who had a recent admission. Yesterday, she was admitted for UTI * Yesterday, BSG was 160-193 mg/dL. Received a 40 units Lantus and 4 units correctional insulin at bedtime * Today her FBSG was 153 mg/dL. Based on data from pharmacy glycemic management on past admission, started a basal of 40 units AM, and a scale for HS. Will continue NovoLog SSI PLAN FOR INPATIENT GLYCEMIC CONTROL: * Hold outpatientl diabetes medications * Basal insulin * Lantus 40-45 units SQ BID (45 units for BSG 150 mg/dL or more) * Bolus insulin * NovoLog per scale ACHS or Q6hrs while NPO * Goal Range: Low 110 mg/dL - High 140 mg/dL * Correction Factor: 8 mg/dL/unit * Nutritional / Prandial insulin per carb ratio of 1 unit per 2 grams CHO consumed
[2022-07-29] MEDS ORDERED: FLUCONAZOLE 100 MG TAB PO ONE (11:54)
[2022-07-29] MEDS: HEPARIN 100 UNIT/ML 5ML FLUSH FLUSH PRN (13:30)
--- NOTE | 2022-07-29 13:51 | Hospitalist Progress Note ---
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 Complicated UTI, POA H/O Cystectomy with Ileal Conduit H/O recurrent MDRO UTI H/O recurrent Pseudomonas UTI --CT ABD:No significant change in appearance of the abdomen or pelvis. Punctate bilateral renal calculi. No ureteral calculi or hydronephrosis. No change in a lateral urothelial thickening. No bowel obstruction. No bowel wall thickening on unenhanced exam. No evidence for acute appendicitis. -- Blood Culture: Negative to date --Urine culture from 07/23/2022: Pseudomonas, Enterobacter --Repeat urine culture negative Completed IV tobramycin for 3 days as per ID Appreciate Infectious disease Input Plan to discharge home today Hypokalemia Dehydration Replace electrolytes as needed Monitor Labial/Groin wound, POA consulted wound care Follows [facility] wound clinic per mother pt was using Calmoseptine, xeroform and nystatin Previous surface culture grew MRSA contact precautions Continue wound care Vaginal discharge Recently completed a course of Diflucan advised to follow up as outpatient DM II on insulin HbA1c 7.4 06/2022 Continue ISS basal insulin-Monitor BGs glycemic pharmacy consulted HTN Continue atenolol, Lasix Hypothyroidism Continue levothyroxine Chronic hypoxic, hypercarbic respiratory failure on oxygen/BiPAP at night Obesity hypoventilation syndrome, sleep apnea Continue supplemental oxygen, BiPAP at night Bipolar disorder, depression Continue home meds H/O spina bifida S/P ventriculoperitoneal shunt Chronic migraines Continue home medications Morbid obesity BMI 46 H/O PE On Apixaban Code Status FULL CODE Admission and Anticipated Discharge Date Admission Date: July 26, 2022 Subjective Patient is seen and examined at bedside Feels tired No new complaints Abdominal pain is better Denies any chest pain, dyspnea, dizziness, nausea Review of Systems Review of Systems: All systems reviewed & are unremarkable except as noted in Subjective Physical Exam Physical Exam: Physical Exam: Vitals signs as noted above General Appearance:Morbidly Obese, no apparent distress Head: normocephalic, Atraumatic Eyes: normal inspection, EOMI Neck: supple, Trachea midline Respiratory/Chest: Normal breath sounds, CTA, No accessory muscle use Cardiovascular: S1, S2, No murmur Abdomen/GI:Soft, non tender, +Ostomy, Bowel sounds present Extremities/Musculoskeletal:normal inspection, no edema, B/L BKA Neurologic/Psych:AAOX3, grossly no focal neurological deficits Skin: normal color, warm, + multiple small skin tear sacral region Results & Data Results & Data ([facility]) Vital Signs (Past 12 Hours) Vital Signs Temp Pulse Pulse Pulse Resp BP Pulse Ox 07/29/22 12:00 36.8 C 84 18 124/76 93 07/29/22 09:00 76 07/29/22 03:09 37.0 C 75 16 112/74 93 O2 Del Method 07/29/22 12:00 Room Air 07/29/22 09:00 07/29/22 03:09 CPAP Laboratory Results Short CBC 07/29/22 Range/Units 05:47 WBC 8.18 (4.8-10.8) K/ul Hgb 11.2 L (12.0-16.0) g/dl Hct 35.3 L (37.0-47.0) % Plt Count 217 (130-400) K/uL BMP 07/29/22 05:47 Sodium 137 Potassium 3.3 L Chloride 101 Carbon Dioxide 31 BUN 16 Creatinine 0.38 L Glucose 191 H Calcium 9.1
--- NOTE | 2022-07-29 14:13 | Discharge Summary ---
Date of Service July 29, 2022 Admission HPI Per Admitting Provider This is a 37-year-old female with complex medical hx - including history of spina bifida, bilateral below-knee amputations due to MRSA infection, wheelchair-bound, diabetes mellitus type 2, on insulin, morbid obesity, hypothyroidism, depression/bipolar disorder, LIZBETH on BiPAP at night, s/p FIREWOOD CUTTER shunt , s/p cystectomy and urostomy, hx of MDRO and recurrent UTI, hx of PE on eliquis who presents with flank pain, abd pain and FRIED and abnormal urine culture. She had a urine test on Monday, 07/23 and culture came back abnormal. She also complains of FRIED, migraine, fatigue, flank pain and abd pain. Her urine culture was obtained after a new urostomy bag was placed. Pt does also have a wound that is not healing. Mother is at bedside and has pictures of wound. She complains of white vaginal discharge. Of significance urine culture in the ED revealed greater than 100,000 Pseudomonas as well as Enterobacter cloacae at 20,000. ER provider did reach out to infectious disease Dr. Weaver. Given patient's profound comorbidities it is difficult to distinguish between acute infection versus colonization. Patient does appear to be symptomatic in setting of flank pain, suprapubic pain and does have mild elevation to her white blood cell count. Was recommended patient be admitted for IV tobramycin. She does have a port in place and likely will be able to arrange treatment at [facility]. Admission Exam Per Admitting Provider PE: NAD, well developed Lungs: CTA, no wheezing or crackles, presence of port a cath on the R ant chest wall Cardiac: normal S1/S2, no murmur Abd: presence of urostomy and ostomy bags, mild TTP of the lower abd, soft MSK: b/l BKA : white vaginal discharge with b/l groin area skin erythema with superficial skin tear Psych: AAOX3, normal affect Principal Diagnosis Urinary tract infection complicated Hypokalemia Discharge Data Allergies Allergy/AdvReac Type Severity Reaction Status Date / Time chlorhexidine Allergy Severe blisters Verified 07/26/22 17:39 adhesive Allergy Intermediate TAPE- HIVES Verified 07/26/22 17:39 ciprofloxacin Allergy Intermediate hives Verified 07/26/22 17:39 clindamycin Allergy Intermediate Redness/Itc Verified 07/26/22 17:39 hiness imipenem Allergy Intermediate May Verified 07/26/22 17:39 use-See comment levofloxacin Allergy Intermediate rash,HEARD Verified 07/26/22 17:39 VOICES linezolid Allergy Intermediate rash Verified 07/26/22 17:39 vancomycin Allergy Intermediate May use - Verified 07/26/22 17:39 See comment piperacillin [From Zosyn] Allergy Mild may Verified 07/26/22 17:39 use-see comment tazobactam [From Zosyn] Allergy Mild See Verified 07/26/22 17:39 piperacillin comment amikacin Allergy Unknown PER DR Verified 07/26/22 17:39 ROBINS,RXN WAS TO ZOSYN NOT AMKrash;hives onabotulinumtoxinA Allergy Unknown Rash/swelling Verified 07/26/22 17:39 [From Botox] at injection site buspirone AdvReac Severe HALLUCINATI Verified 07/26/22 17:39 ONS latex AdvReac Mild Rash Verified 07/26/22 17:39 Consultations 07/26/22 17:30 ED Decision to Admit Stat 07/26/22 18:28 ED Decision to Admit Stat 07/26/22 18:43 Consult Infectious Diseases Routine Procedures Performed Laboratory Results WBC 8.18 K/ul (4.8-10.8) 07/29/22 05:47 RBC 3.71 M/uL (4.20-5.40) L 07/29/22 05:47 Hgb 11.2 g/dl (12.0-16.0) L 07/29/22 05:47 Hct 35.3 % (37.0-47.0) L 07/29/22 05:47 MCV 95.1 fL (80.0-100.0) 07/29/22 05:47 MCH 30.2 pg (25.0-34.0) 07/29/22 05:47 MCHC 31.7 g/dL (32.0-36.0) L 07/29/22 05:47 RDW Std Deviation 59.7 fL (36.4-46.3) H 07/29/22 05:47 RDW Coeff of Neda 16.9 % (11.5-14.5) H 07/29/22 05:47 Plt Count 217 K/uL (130-400) 07/29/22 05:47 MPV 10.6 fL (9.4-12.4) 07/29/22 05:47 Immature Gran % (Auto) 0.5 % 07/27/22 05:45 Neut % (Auto) 60.5 % 07/27/22 05:45 Lymph % (Auto) 27.8 % 07/27/22 05:45 [place] % (Auto) 8.3 % 07/27/22 05:45 Eos % (Auto) 2.5 % 07/27/22 05:45 Baso % (Auto) 0.4 % 07/27/22 05:45 Neut # (Auto) 4.60 K/uL (1.40-6.50) 07/27/22 05:45 Lymph # (Auto) 2.11 K/uL (1.2-3.4) 07/27/22 05:45 [place] # (Auto) 0.63 K/uL (0.11-0.59) H 07/27/22 05:45 Eos # (Auto) 0.19 K/uL (0-0.50) 07/27/22 05:45 Baso # (Auto) 0.03 K/uL (0-0.2) 07/27/22 05:45 Immature Gran # (Auto) 0.04 K/uL (0.01-0.20) 07/27/22 05:45 Sodium 137 mmol/L (136-145) 07/29/22 05:47 Potassium 3.3 mmol/L (3.5-5.1) L 07/29/22 05:47 Chloride 101 mmol/L (98-107) 07/29/22 05:47 Carbon Dioxide 31 mmol/L (21-32) 07/29/22 05:47 Anion Gap 5 (3-11) 07/29/22 05:47 BUN 16 mg/dl (6-23) 07/29/22 05:47 Creatinine 0.38 mg/dl (0.6-1.2) L 07/29/22 05:47 Est Cr Clr Drug Dosing 243.9 ml/min 07/29/22 05:47 Est GFR ( Amer) > 150.0 ml/min 07/29/22 05:47 Est GFR (Non-Af Amer) 137.2 ml/min 07/29/22 05:47 BUN/Creatinine Ratio 42.1 (10-20) H 07/29/22 05:47 Glucose 191 mg/dl (70-99(Fasting)) H 07/29/22 05:47 POC Glucose 214 mg/dl (70-99) H 07/29/22 11:25 Calcium 9.1 mg/dl (8.5-10.1) 07/29/22 05:47 Magnesium 1.7 mg/dl (1.7-2.4) 07/29/22 05:47 Total Bilirubin 0.3 mg/dl (0.2-1.0) 07/27/22 05:45 AST 10 U/L (13-39) L 07/27/22 05:45 ALT 12 U/L (7-52) 07/27/22 05:45 Alkaline Phosphatase 78 U/L (34-104) 07/27/22 05:45 Total Protein 7.2 gm/dl (6.0-8.3) 07/27/22 05:45 Albumin 3.4 gm/dl (3.4-5.0) 07/27/22 05:45 Globulin 3.8 gm/dl (2.5-4.0) 07/27/22 05:45 Albumin/Globulin Ratio 0.9 (0.9-2) 07/27/22 05:45 Urine Color Yellow 07/26/22 20:50 Urine Appearance Cloudy (Clear) A 07/26/22 20:50 Urine pH 6.5 (4.5-7.5) 07/26/22 20:50 Ur Specific [place] 1.015 (1.000-1.030) 07/26/22 20:50 Urine Protein Trace (Negative) H 07/26/22 20:50 Urine Glucose (UA) Negative (Negative) 07/26/22 20:50 Urine Ketones Negative (Negative) 07/26/22 20:50 Urine Blood 2+ (Negative) H 07/26/22 20:50 Urine Nitrite Negative (Negative) 07/26/22 20:50 Urine Bilirubin Negative (Negative) 07/26/22 20:50 Urine Urobilinogen Negative (Negative) 07/26/22 20:50 Ur Leukocyte Esterase 1+ (Negative) H 07/26/22 20:50 Urine WBC (Auto) >30 /hpf (0-5) H 07/26/22 20:50 Urine RBC (Auto) 10-30 /hpf (0-4) H 07/26/22 20:50 U Hyaline Cast (Auto) 5-10 /lpf (0-5) H 07/26/22 20:50 U Epithel Cells (Auto) 5-10 /lpf (0-5) H 07/26/22 20:50 Urine Bacteria (Auto) Negative (Negative) 07/26/22 20:50 Ur Renal Epithelial Cell Not Reportable 07/26/22 20:50 Vaginal Bacterial Vaginosis NEGATIVE (NEGATIVE) 07/26/22 Unknown Random Tobramycin 1.8 mg/L 07/27/22 05:45 C. glabrata (PCR) DETECTED (NOT DETECTED) A 07/26/22 Unknown Melida species NOT DETECTED (NOT DETECTED) 07/26/22 Unknown C.trachomatis RNA NOT DETECTED (NOT DETECTED) 07/26/22 Unknown C.trachomatis RNA Not Detected (NotDetected) 07/26/22 Unknown N.gonorrhoeae RNA NOT DETECTED (NOT DETECTED) 07/26/22 Unknown N.gonorrhoeae RNA Not Detected (NotDetected) 07/26/22 Unknown SARS-CoV-2, RNA, NAAT NEGATIVE (NEGATIVE) 07/26/22 19:28 T.vaginalis (Amp Det) Not Detected (NotDetected) 07/26/22 Unknown T. vaginalis Amp RNA NOT DETECTED (NOT DETECTED) 07/26/22 Unknown Impressions Abdomen/Pelvis CT 07/28/22 11:18 CT OF THE ABDOMEN AND PELVIS WITHOUT CONTRAST CLINICAL HISTORY: Abd/flank pain R >L COMPARISON STUDY: CT of the abdomen and pelvis June 30, 2022. TECHNIQUE: Axial images of the abdomen and pelvis were obtained without IV contrast. Images were reviewed in the axial, sagittal, and coronal planes. Automated exposure control was utilized for the study. A dose lowering technique was utilized adhering to the principles of ALARA. FINDINGS: A right ventriculopleural shunt catheter remains in place. A small right pleural effusion with right lower lobe airspace opacity similar to prior exam. No pneumatosis, free air or portal venous gas is present. Evaluation of the abdomen and pelvis is suboptimal on this unenhanced exam. There is no biliary ductal dilatation status post cholecystectomy. Liver, spleen, adrenal glands and pancreas are unremarkable. Cystectomy with right lower quadrant urostomy is noted. Urothelial thickening is greater within the left collecting system and left ureter. This is similar to prior exams. Slight asymmetric dilatation of the left ureter and collecting system is unchanged. There is no significant hydronephrosis. Small bilateral renal calculi measure up to 2 mm. There are no ureteral calculi. There is no evidence for a bowel obstruction. No evidence for acute appendicitis. Descending colostomy is noted. Intrauterine device is in place. There is no ascites. No fluid collection is identified. 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 IMPRESSION: 1. No significant change in appearance of the abdomen or pelvis. 2. Punctate bilateral renal calculi. No ureteral calculi or hydronephrosis. No change in a lateral urothelial thickening. 3. No bowel obstruction. No bowel wall thickening on unenhanced exam. No evidence for acute appendicitis. ACT 112: Negative or not required by law. Electronically signed by: Ryan Boone M.D. 07/28/2022 1:40 PM Ordered Studies 07/28/22 11:18 CT Abd and Pelvis [CT abd pelvis wo con] Urgent Hospital Course (1) UTI (urinary tract infection): (2) Hypokalemia: (3) Open wound of genital labia: (4) Type 2 diabetes mellitus: (5) History of pulmonary embolism: Plan Patient is a 37 yr female with H/O spina bifida, B/L BKA due to MRSA infection, wheelchair-bound, diabetes mellitus type 2, on insulin, morbid obesity, hypothyroidism, depression/bipolar disorder, LIZBETH on BiPAP at night, s/p FIREWOOD CUTTER shunt , s/p cystectomy and urostomy, hx of MDRO and recurrent UTI, hx of PE on eliquis who presents with flank pain, abd pain and FRIED and abnormal urine culture. Complicated UTI, POA H/O Cystectomy with Ileal Conduit H/O recurrent MDRO UTI H/O recurrent Pseudomonas UTI --CT ABD:No significant change in appearance of the abdomen or pelvis. Punctate bilateral renal calculi. No ureteral calculi or hydronephrosis. No change in a lateral urothelial thickening. No bowel obstruction. No bowel wall thickening on unenhanced exam. No evidence for acute appendicitis. -- Blood Culture: Negative to date --Urine culture from 07/23/2022: Pseudomonas, Enterobacter --Repeat urine culture negative Completed IV tobramycin for 3 days as per ID Appreciate Infectious disease Input Plan to discharge home today Hypokalemia Dehydration Replace electrolytes as needed Monitor Labial/Groin wound, POA consulted wound care Follows [facility] wound clinic per mother pt was using Calmoseptine, xeroform and nystatin Previous surface culture grew MRSA contact precautions Continue wound care Vaginal discharge Recently completed a course of Diflucan advised to follow up as outpatient DM II on insulin HbA1c 7.4 06/2022 Continue ISS basal insulin-Monitor BGs glycemic pharmacy consulted HTN Continue atenolol, Lasix Hypothyroidism Continue levothyroxine Chronic hypoxic, hypercarbic respiratory failure on oxygen/BiPAP at night Obesity hypoventilation syndrome, sleep apnea Continue supplemental oxygen, BiPAP at night Bipolar disorder, depression Continue home meds H/O spina bifida S/P ventriculoperitoneal shunt Chronic migraines Continue home medications Morbid obesity BMI 46 H/O PE On Apixaban Code Status FULL CODE Total Time Total Time Spent Total Time Spent (In Minutes): 45 minutes Discharge Plan Discharge Items Patient Disposition: Home - Self-Care Reason For Visit: UTI, LABIAL WOUND Discharge Diagnosis: Complicated Urinary tract infection Hypokalemia Activity: Per Instructions section Exercise/Sports: Gradually increase as tolerated Non-emergency contact: Primary Care Provider Call non-emergency contact if: you have any medication questions, your symptoms worsen, your pain is concerning for you and you have a fever Follow-up/Referrals: Candie Clemons MD [Primary Care Provider] - (Date & Time 08/03/2022 11:00 AM Provider Candie Clemons MD Department Family Practice [facility] ) Diet: Carb Consistent or DM2 Addtl Attending Provider Instructions: Follow-up with your primary care physician on 08/03/2022 11:00 AM --- Final blood cultures are pending at the time of discharge. Follow-up with your physician for results. --- Continue wound care of your Groin/sacral region -- Start taking potassium chloride 20 mEq daily for 7 days and obtain blood test (basic metabolic panel) in 1 week and follow up with your primary care physician Seek immediate medical attention if your symptoms reoccur or worsen Please take all medications as instructed on discharge list below. Please call if you have any questions or problems. You can reach a [facility] hospitalist on duty at [facility] 24 hours a day by calling [phone] Pending Studies at Discharge: Yes Studies:: Blood Culture Stand-Alone Forms: My [facility], Smoking Cessation Medications and DC Order Prescriptions: New potassium chloride 20 mEq Tablet,Er Particles/Crystals 20 meq PO DAILY Qty: 7 0RF Continued ferrous sulfate [Iron (ferrous sulfate)] 325 mg (65 mg iron) tablet 325 mg PO BID cyanocobalamin (vitamin B-12) 1,000 mcg capsule 1,000 mcg PO Q OTHER DAY Digestive Advantage Prob Gummy 250 million cell tablet,chewable 250 cell PO DAILY nystatin 100,000 unit/gram cream 1 applic topical BID PRN (Reason: Skin Irritation) magnesium sulfate 100 mg capsule 400 mg PO Q OTHER DAY (DME) Wheelchair (Powered) Device See Rx Instructions .Route Qty: 1 0RF Rx Instructions: wheelchair repair- left arm (DME) Hospital Bed Homecare Misc See Rx Instructions .Route Qty: 1 0RF Rx Instructions: REPLACEMENT HOSPITAL BED MATTRESS albuterol sulfate [ProAir HFA] 90 mcg/actuation HFA aerosol inhaler 2 inh INH Q6H PRN (Reason: Shortness Of Breath Or Wheezing) Qty: 8 3RF fluticasone propion-salmeterol [Advair Diskus] 500-50 mcg/dose blister with device 1 inh INHALATION BID Qty: 60 5RF (DME) Mattress (Air or other) Misc See Rx Instructions .Route Qty: 1 0RF Rx Instructions: ALTERNATING PRESSURE MATTRESS FOR HOSPITAL BED Eliquis 5 mg tablet 5 mg PO BID Qty: 60 5RF famotidine 40 mg tablet 40 mg PO HS Qty: 90 3RF (DME) FreeStyle Fara 2 Sensor Kit See Rx Instructions miscellaneous .MEDSUPPLY Qty: 2 11RF Rx Instructions: Change q 14 days to monitor glucose. (DME) pen needle, diabetic [BD Ultra-Fine Mini Pen Needle] 31 gauge x 3/16" needle See Rx Instructions .ROUTE .MEDSUPPLY Qty: 200 3RF Rx Instructions: Use to inject insulin QID (DME) Dexcom G6 Sensor Device See Rx Instructions .Route Qty: 3 11RF Rx Instructions: Change sensor every 10 days (DME) Dexcom G6 Transmitter Device See Rx Instructions .Route Qty: 1 3RF Rx Instructions: Change transmitter every 90 days riboflavin (vitamin B2) 400 mg tablet 400 mg PO QAM loxapine succinate 5 mg capsule 5 mg PO TID PRN (Reason: Anxiety) Spiriva Respimat 2.5 mcg/actuation mist 2 inh inhalation DAILY divalproex [Depakote] 250 mg tablet,delayed release (DR/EC) 2,000 mg PO QAM cyclobenzaprine 5 mg tablet 5 mg PO TID PRN (Reason: muscle spasm) atenolol 100 mg tablet 100 mg PO HS docusate sodium [Colace] 100 mg capsule 100 mg PO BID (DME) Loomipod DASH PDM Kit (Gen 4) Misc See Rx Instructions .Route Qty: 1 0RF Rx Instructions: As directed (DME) Omnipod Dash Pods (Gen 4) Cartridge See Rx Instructions .Route Qty: 15 11RF Rx Instructions: As directed to change pod every 2 days venlafaxine [Effexor XR] 75 mg capsule,extended release 24hr 75 mg PO QAM Rx Instructions: TAKE WITH 150MG CAPSULE = 225MG DAILY. trazodone 150 mg tablet 300 mg PO HS Rexulti 4 mg tablet 4 mg PO QAM venlafaxine 150 mg Tablet Extended Release 24hr 150 mg PO QAM Rx Instructions: TAKE WITH 75MG CAPSULE = 225MG DAILY. PNV cmb#95-ferrous fumarate-FA [] 28 mg iron- 800 mcg Tablet 1 tab PO QDL acetaminophen [Tylenol Extra Strength] 500 mg Tablet 500 - 1,000 mg PO DIRECTED PRN (Reason: Pain) Trulicity 4.5 mg/0.5 mL pen injector 4.5 mg subcut Q7D Rx Instructions: THURSDAYS levalbuterol HCl 0.63 mg/3 mL solution for nebulization See Rx Instructions .ROUTE .COMPLEX PRN (Reason: Shortness Of Breath) Rx Instructions: INHALE 1 VIAL VIA NEBULIZER EVERY 6 HOURS NEEDED FOR SHORTNESS OF BREATH Linzess 290 mcg capsule 290 mcg PO DAILY Trelegy Ellipta 100-62.5-25 mcg blister with device 1 inh INHALATION DAILY montelukast [Singulair] 10 mg tablet 10 mg PO PM levothyroxine [Synthroid] 100 mcg tablet 100 mcg PO QAM dicyclomine 10 mg Capsule 20 mg PO BID clorazepate dipotassium 3.75 mg Tablet 3.75 mg PO TID loratadine 10 mg Tablet 20 mg PO QAM (DME) Omnipod Dash Intro Kit (Gen 4) Cartridge SUBCUT furosemide 40 mg tablet 40 mg PO QDD cetirizine 10 mg tablet 10 mg PO DAILY PRN (Reason: PRIOR TO ANTIBIOTICS) Rx Instructions: GIVE 45 MINUTES PRIOR TO ANTIBIOTICS!!!! clonazepam 0.5 mg Tablet 0.5 mg PO HS Rx Instructions: administer 30 minutes before bedtime menthol-zinc oxide [Calmoseptine] 0.44-20.6 % Ointment 1 applic TOPICAL DIRECTED PRN (Reason: UNDER XEROFOAM TO BUTTOCKS) Rx Instructions: APPLY TO SORE ON BUTTOCKS, THEN APPLY XEROFOAM TO AREA. (DME) XEROFORM Misc atorvastatin 40 mg tablet 40 mg PO QDD ondansetron 8 mg tablet,disintegrating 8 mg translingual Q6H PRN (Reason: NAUSEA/VOMITING) Rx Instructions: TAKE 1 TABLET SUBLINGUALLY EVERY 6 HOURS NEEDED FOR NAUSEA pantoprazole 40 mg tablet,delayed release (DR/EC) 40 mg PO BID Rx Instructions: TAKE 1 TABLET BY MOUTH TWICE A DAY insulin aspart U-100 [Novolog FlexPen U-100 Insulin] 100 unit/mL (3 mL) insulin pen 25 unit subcut TID Rx Instructions: DOSE 25 UNITS PLUS SLIDING SCALE WITH carb ratio insulin glargine [Lantus Solostar U-100 Insulin] 100 unit/mL (3 mL) insulin pen 50 unit subcut HS oxycodone 5 mg tablet 5 mg PO Q8H PRN (Reason: pain) Qty: 12 0RF Discharge Orders: Discharge Order (Routine); Ordered 07/29/22 Ordered By: Grant Rubin Admission Data Admit Date/Time: 07/26/22 18:43 Attending Provider: Grant Rubin Admit Provider: Patricia Vigil Primary Care Provider: Candie Clemons Other Providers: Patricia iVgil ; Frandy Kirk ; Brown Barrett ; Darian Jacobo I. ; Shon Chase II ; Nohemi Burgos ; Werner Almanza ; Rocael Weaver ; Spencer Ortiz
== END 2022-07-29 14:49 | disposition home or self-care (01) | DRG 690 ==
LOC: ED 14:46 → SUATTDRO 18:43 → 2S 18:43

== ENCOUNTER 2022-09-19 20:51 | Inpatient (IN) ==
[2022-09-20 02:10] LABS: Basophils # (auto) 0.03 K/uL (0-0.2); Basophils % (auto) 0.4 %; Eosinophils # (auto) 0.09 K/uL (0-0.50); Eosinophils % (auto) 1.1 %; Hematocrit (blood only) 39.7 % (37.0-47.0); Hemoglobin 12.4 g/dl (12.0-16.0); Immature Granulocytes # (auto) 0.02 K/uL (0.01-0.20); Immature Granulocytes % (auto) 0.2 %; Lymphocytes # (auto) 2.15 K/uL (1.2-3.4); Lymphocytes % (auto) 26.1 %; Mean Corpuscular Hemoglobin 30.1 pg (25.0-34.0); Mean Corpuscular Hgb Conc 31.2 g/dL (32.0-36.0); Mean Corpuscular Volume 96.4 fL (80.0-100.0); Mean Platelet Volume 10.1 fL (9.4-12.4); Monocytes # (auto) 0.73 K/uL (0.11-0.59); Monocytes % (auto) 8.8 %; Neutrophils # (auto) 5.23 K/uL (1.40-6.50); Neutrophils % (auto) 63.4 %; Platelet Count 248 K/uL (130-400); RDW Coefficient of Variation 19.2 % (11.5-14.5); RDW Standard Deviation 67.5 fL (36.4-46.3); Red Blood Count 4.12 M/uL (4.20-5.40); White Blood Count 8.25 K/ul (4.8-10.8)
[2022-09-20] MEDS ORDERED: SODIUM CHLORIDE 0.9% 1000ML 2,000 ML IV ONE (02:15)
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
[2022-09-20 02:34] LABS: Alanine Aminotransferase 15 U/L (7-52); Albumin Globulin Ratio 0.8 (0.9-2); Albumin Level 3.3 gm/dl (3.4-5.0); Alkaline Phosphatase 81 U/L (34-104); Anion Gap 9 (3-11); Aspartate Aminotransferase 16 U/L (13-39); Bilirubin,Total 0.3 mg/dl (0.2-1.0); Blood Urea Nitrogen 16 mg/dl (6-23); Calcium 9.1 mg/dl (8.6-10.3); Carbon Dioxide 28 mmol/L (21-32); Chloride 95 mmol/L (98-107); Est GFR (African American) 145.3 ml/min; Est GFR (Non-African American) 125.4 ml/min; Globulin 4.2 gm/dl (2.5-4.0); Glucose 455 mg/dl (70-99(Fasting)); INR 1.2 (0.9-1.1); Magnesium 1.8 mg/dl (1.7-2.4); Partial Thromboplastin Time 26.8 Seconds (21.0-31.0); Potassium 3.3 mmol/L (3.5-5.1); Prothrombin Time 12.8 Seconds (9.0-12.0); Sodium 132 mmol/L (136-145); Total Protein 7.5 gm/dl (6.0-8.3); Troponin I High Sensitivity 5.3 pg/ml (0-14)
[2022-09-20] MEDS ORDERED: diphenhydrAMINE 50 MG/ML VIAL IV STA (02:39)
[2022-09-20] MEDS ORDERED: ONDANSETRON INJ 2 MG/ML 2 ML VIAL ONE (03:03)
[2022-09-20] MEDS ORDERED: ERTAPENEM SODIUM 10 ML IV STA (03:22)
[2022-09-20] MEDS ORDERED: NovoLIN-R INSULIN PER UNIT CHARGE IV STA ×2 (05:17→11:41)
[2022-09-20] MEDS ORDERED: NITROGLYCERIN SL 0.4 MG/TAB TAB SL PRN (06:59)
[2022-09-20] MEDS ORDERED: GLUCAGON FOR INJ 1 MG VIAL SQ PRN (06:59)
[2022-09-20] MEDS ORDERED: GLUCOSE 40% GEL 15 GM TUBE PO PRN (06:59)
[2022-09-20] MEDS ORDERED: DEXTROSE 50% 50 ML SYRINGE IV PRN (06:59)
[2022-09-20] MEDS ORDERED: SUCRALFATE 1 GM TAB PO PRN (06:59)
[2022-09-20] MEDS ORDERED: POLYETHYLENE (MIRALAX) 17 GM PACK PO PRN (06:59)
[2022-09-20] MEDS ORDERED: NYSTATIN CR 15 GM TUBE EXT PRN (06:59)
[2022-09-20] MEDS ORDERED: CARBOHYDRATES FOR HYPOGLYCEMIA PO PRN (06:59)
[2022-09-20] MEDS ORDERED: ALBUTEROL HFA 8 GM INHALER INH PRN (06:59)
[2022-09-20] MEDS ORDERED: PHARMACY GLYCEMIC MGMT CONSULT PRN (06:59)
[2022-09-20] MEDS ORDERED: LEVALBUTEROL HCL 0.63 MG/3 ML NEB INH PRN (06:59)
[2022-09-20] MEDS ORDERED: NON-FORMULARY MEDICATION (Riboflavin (Vitamin B2) 400 mg tablet) PO SCH (06:59)
[2022-09-20] MEDS ORDERED: CETIRIZINE HCL 10 MG TABLET PO PRN (06:59)
[2022-09-20] MEDS ORDERED: GLUCOSE 10 TAB/TUBE PO PRN (06:59)
[2022-09-20] MEDS ORDERED: SODIUM CHLORIDE 0.9% 1000ML 1,000 ML IV SCH (06:59)
[2022-09-20] MEDS ORDERED: LANTUS PER UNIT CHARGE SC ONE ×2 (07:30→18:00)
[2022-09-20] MEDS: INSULIN ASPART PER UNIT CHARGE SC SCH ×5 (08:23→23:49)
[2022-09-20] MEDS: diazePAM 2 MG TABLET PO SCH ×3 (08:27→22:19)
[2022-09-20] MEDS: VENLAFAXINE HCL XR 150 MG CAPXR PO SCH (08:28)
[2022-09-20] MEDS: ADVANCED PROBIOTIC 1250 MG CAPSULE PO SCH (08:28)
[2022-09-20] MEDS: LORATADINE 10 MG TAB PO SCH (08:28)
[2022-09-20] MEDS: LINACLOTIDE 145 MCG CAPSULE PO SCH (08:28)
[2022-09-20] MEDS: VENLAFAXINE HCL XR 75 MG CAPXR PO SCH (08:29)
[2022-09-20] MEDS: PANTOprazole 40 MG TAB PO SCH ×2 (08:29→22:19)
[2022-09-20] MEDS: DICYCLOMINE HCL 10 MG CAP PO SCH ×2 (08:29→20:10)
[2022-09-20] MEDS: LEVOTHYROXINE SODIUM 100 MCG TABLET PO SCH (08:29)
[2022-09-20] MEDS: CYANOCOBALAMIN (B-12) 500 MCG TABLET PO SCH (08:29)
[2022-09-20] MEDS: DIVALPROEX EXTENDED RELEASE 500 MG TAB PO SCH (08:29)
[2022-09-20] MEDS: APIXABAN 5 MG TABLET PO SCH ×2 (08:29→22:18)
[2022-09-20] MEDS: FERROUS SULFATE 325 MG TAB PO SCH ×2 (08:29→22:18)
[2022-09-20] MEDS: FLUTICASONE FUROATE 100MCG 14 PUFFS/INHALER INH SCH (08:30)
[2022-09-20] MEDS: UMECLIDINIUM/VILANTEROL 62.5/25MCG 7 PUFFS/INHALER INH SCH (08:30)
--- NOTE | 2022-09-20 08:52 | Pharmacy Report ---
Pharmacy Glycemic Short Note 2 - Date of Service September 20, 2022 - Glycemic Short BSG Results (Last 24 hours): 09/20/22 09/20/22 01:54 08:00 Glucose 455 H* POC Glucose 397 H* OUTPATIENT ANTIDIABETIC REGIMEN: * Stu, Lantus 50 units HS, Novolog 25 units TIDM + SSI * A1c 7.4 06/2022 ASSESSMENT: * 37 year old admitted with UTI. Has history of drug resistant organisms, follows with ID outpatient and was referred to hospital for IV antibiotics. Type 2 diabetic managed on high amounts of insulin at home. Pharmacy consulted to help with glycemic management * Patient's BSGs in 300-400s this morning - was given IV insulin bolus in ER earlier this AM prior to consult. BSGs only trending down slightly. Patient takes 50 units of basal at home, unclear if missed dose last evening. Will give 50 units x 1 this AM. Per previous admissions, patient requiring larger amounts of basal insulin during infection. Will have scale for basal at HS * Started novolog based upon stress of outpatient dose. Contacted provider to order IV Kcl as K level low this AM. Held additional IV insulin until K repleted. PLAN FOR INPATIENT GLYCEMIC CONTROL: * Hold outpatient oral diabetes medications * Basal insulin * Lantus 50 units x 1 * Lantus 10-30 units HS * Bolus insulin * NovoLog per scale ACHS or Q6hrs while NPO * Goal Range: Low 110 mg/dL - High 140 mg/dL * Correction Factor: 10 mg/dL/unit * Nutritional / Prandial insulin per carb ratio of 1 unit per 3 grams CHO consumed
[2022-09-20] MEDS ORDERED: POTASSIUM CHLORIDE CRTAB 20 MEQ TABCR PO STA (08:54)
--- NOTE | 2022-09-20 09:04 | XRay Report ---
XR chest 1V not portable HISTORY: 37 years-old Female Sepsis acute sepsis COMPARISON: Chest radiograph dated October 11, 2022 TECHNIQUE: AP view of the chest FINDINGS: Limited exam secondary to patient body habitus. Cardiomegaly. Pulmonary vascular congestion with inte rstitial coarsening. Small right and trace left pleural effusions with mild persistent bibasilar cons olidation. Catheters project over the right chest are again noted which appear intact. Bones appear u nremarkable. IMPRESSION: 1. Cardiomegaly with pulmonary vascular congestion. 2. Right greater than left pleural effusions with bibasilar consolidation, similar to prior exams. ACT 112: Negative or not required by law. The above report was generated using voice recognition software. It may contain grammatical, syntax o r spelling errors. Electronically signed by: Scar Martino M.D. 09/20/2022 8:36 AM
[2022-09-20] MEDS: POTASSIUM CHLORIDE / WTR 10 MEQ/100 ML PLCT IV SCH ×3 (09:58→12:26)
--- NOTE | 2022-09-20 10:50 | Electrocardiogram Report ---
Test Reason : Blood Pressure : / mmHG Vent. Rate : 093 BPM Atrial Rate : 093 BPM P-R Int : 150 ms QRS Dur : 086 ms QT Int : 376 ms P-R-T Axes : 025 014 022 degrees QTc Int : 467 ms Normal sinus rhythm Normal ECG When compared with ECG of 10-AUG-2022 16:30, No significant change was found Confirmed by Rudy Lazo ([id number]) on 09/20/2022 10:50:38 AM Referred By: Shon Chase Confirmed By:Fabian Lazo
--- NOTE | 2022-09-20 11:07 | History and Physical Report ---
DATE OF ADMISSION: 09/20/2022 CHIEF COMPLAINT: UTI, requiring IV antibiotics. HISTORY OF PRESENT ILLNESS: This is a 37-year-old female with past medical history significant for history of spina bifida, bilateral below-knee amputation due to MRSA infection, wheelchair bound, diabetes type 2, on insulin, morbid obesity, obstructive sleep apnea,Mother says uses her own home ventilator, hypothyroidism, depression, bipolar disorder, status post FISH BUTCHER shunt, status post colostomy and urostomy, history of multiple drug resistants recurrent UTI, history of PE, on Eliquis, chronic posttraumatic stress disorder, generalized anxiety disorder, eating disorder, ADHD, history of asthma. Lives at home with her mother, was sent in by her infectious disease doctor because her urine cultures are growing Morganella, which was sensitive to Invanz, t THE PATIENT IS ALLERGIC TO MULTIPLE MEDICATIONS. ID recommended 2 weeks of IV antibiotics and recommended Invanz 1 gram given the severity of her illness in the past, that is the reason she came to the hospital. Currently, resting comfortably, hemodynamically stable. Mother is in the room. She complains of lot of back spasms and spasms in the legs. Denies any chest pain, no shortness of breath. Has occasional cough. No runny nose. No headache, no blurred visions, no abdominal pain. Urostomy and colostomy seem to be working okay. ALLERGIES: CHLORHEXIDINE, ADHESIVES, CIPROFLOXACIN, CLINDAMYCIN, IMIPENEM, LEVAQUIN, LINEZOLID, VANCOMYCIN, ZOSYN, TAZOBACTAM, AMIKACIN, ONABOTULINUM TOXIN A FROM BOTOX, BUSPIRONE, LATEX. PAST MEDICAL HISTORY: As mentioned above. PAST SURGICAL HISTORY: Bilateral lower leg amputations at knees, colonoscopy, colostomy, EGDs, exploratory laparotomy, Mediport, cystectomy completed with ureteroileal conduit, cholecystectomy, repair of inguinal hernia, upper endoscopy. MEDICATIONS: The patient is on Tylenol Extra Strength p.r.n., albuterol 2 puffs inhalation b.i.d., atenolol 100 mg p.o. at bedtime, atorvastatin 40 mg p.o. daily,Bacillus coagulase chewable tablet a.m., cetirizine 10 mg p.o. daily p.r.n., Klonopin 0.5 mg p.o. at bedtime, clorazepate dipotassium 3.75 mg p.o. t.i.d., vitamin B12 1000 mcg p.o. daily, cyclobenzaprine 5 mg p.o. t.i.d. p.r.n., dicyclomine 20 mg p.o. b.i.d., divalproex 2000 mg p.o. a.m., Eliquis 5 mg p.o. b.i.d., famotidine 40 mg p.o. at bedtime, ferrous sulfate 325 mg p.o. b.i.d., Lasix 40 mg p.o. daily, insulin 25 units subcutaneous t.i.d. with meals, Lantus 50 units at bedtime, levalbuterol 0.63 mg inhalation q.6 hours p.r.n., levothyroxine 100 mcg p.o. daily, Linzess 290 mcg p.o. daily before breakfast, loratadine 20 mg p.o. daily, loxapine succinate 5 mg p.o. t.i.d. p.r.n. for anxiety, magnesium sulfate 400 mg p.o. daily, Calmoseptine topical p.r.n., Singulair 10 mg p.o. a.m., multivitamins with minerals gummies 1 tablet daily, nystatin topical cream b.i.d. p.r.n., Zofran 8 mg p.o. sublingual p.r.n., Protonix 40 mg p.o. b.i.d., Rexulti 4 mg p.o. daily, riboflavin 400 mg p.o. every other day, sucralfate 1 gram p.o. b.i.d. p.r.n., trazodone 300 mg p.o. at bedtime, Trelegy Ellipta 1 inhalation daily, Trulicity 4.5 mg subcutaneous q.7 days, venlafaxine 225 mg p.o. a.m. FAMILY HISTORY: Significant for mother has hyperlipidemia, thyroid disorder; father has diabetes, hyperlipidemia; maternal grandmother has colon cancer. SOCIAL HISTORY: Single, no smoking. Alcohol occasional. No drug use. REVIEW OF SYSTEMS: As per HPI. Rest of the review of systems is negative. PHYSICAL EXAMINATION: GENERAL: The patient is morbidly obese, not in acute distress. VITAL SIGNS: Temperature 36.5, pulse 93, respiratory rate 18, blood pressure 141/91, oxygen 92% on room air. HEENT: Pupils equal, round and reactive to light. Oral mucosa moist. NECK: No JVD, no neck masses. CARDIOVASCULAR: S1 and S2 heard. Regular rate and rhythm. No murmur, no gallop. RESPIRATORY SYSTEM: Normal AP diameter. No accessory muscle use. No wheezing, no crackles. ABDOMEN: Soft, bowel sounds present. Colostomy and ileostomy bag seen. CENTRAL NERVOUS SYSTEM: Alert and oriented. Speech is clear. No facial droop. Obeys simple commands. EXTREMITIES: Bilateral lower extremity below-knee amputation seen. SKIN: Decubitus ulcers seen.Ulcers in labial and groin region seen LABORATORY DATA: WBC 8.2, hemoglobin 12.4, hematocrit 39.7, platelets 248. PT 12.8, INR 1.2, APTT 26.8. Sodium 132, potassium 3.3, chloride 95, bicarbonate 28, BUN 16, creatinine 0.5. Serum glucose 455, repeat is 397. Lactate is 4, repeat is 3.1. Calcium 9.1, magnesium 1.8, total bilirubin 0.3, AST 16, ALT 15, alkaline phosphatase 81. Troponin I high sensitivity 5.3. Procalcitonin less than 0.05. SARS-CoV-2 rapid test negative. IMAGING: Chest x-ray: Poor quality, possible pulmonary congestion. ELECTROCARDIOGRAM: Normal sinus rhythm at a rate of 93, no significant change was found. ASSESSMENT AND PLAN: This is a 37-year-old female who was sent in from Infectious Disease because of urinary tract infection with Morganella. 1. Urinary tract infection with Morganella. Infectious Disease recommended Invanz for 2 weeks. She has allergies to oral antibiotics. Monitor in the hospital. 2. Diabetes with hyperglycemia. We will give a dose of IV insulin. Continue her home Lantus and insulin sliding scale. Glycemic consult. Follow closely the blood sugars. 3. Hypokalemia, we will replace. 4. Elevated lactic acid, possible ongoing infection, it is trending down. Getting fluids. We will follow the repeat lactic acid. Hemodynamically stable. 5. Obstructive sleep apnea, uses home ventilator as per the mother and they brought the ventilator. 6. History of labial and groin ulcers present on previous admission too. Continue Calmoseptine. Consult wound care. 7. Hypertension, on atenolol and Lasix. We will monitor the blood pressure. 8. Hypothyroidism, on Synthroid. 9. Chronic hypoxic hypercarbic respiratory failure, on oxygen and, using home ventilator. 10. Bipolar disorder, depression. Continue home medications. 11. History of spina bifida, status post ventriculoperitoneal shunt, chronic migraines. Continue home medications. 12. Morbid obesity. 13. History of pulmonary embolism, on Eliquis. 14. Deep venous thrombosis prophylaxis, on Eliquis. DISPOSITION: Closely monitor in the med-tele. Expect to discharge home and will follow with family doctor. Job ID: [id number] [facility] CENTERBrigid
[2022-09-20] MEDS: CYCLOBENZAPRINE HCL 5 MG TAB PO PRN ×2 (11:17→19:40)
[2022-09-20] MEDS: MAGNESIUM OXIDE 400 MG TAB PO SCH (11:17)
[2022-09-20] MEDS: MULTIVITAMIN TAB PO SCH (11:18)
[2022-09-20] MEDS: NSS + 20MEQ KCL 20 MEQ/1,000 ML BAG IV SCH ×2 (11:20→19:41)
[2022-09-20] MEDS ORDERED: oxyCODONE HCL IR 5 MG TAB (IMMEDIATE RELEASE) PO PRN (19:01)
--- NOTE | 2022-09-20 19:05 | Communication Note ---
Date of Service: September 20, 2022 The patient was seen and examined in medical floor. She has multiple medical problems as mentioned in H&P and was admitted with UTI no complaints increasing pain in the abdomen and lower back. She has been on oxycodone at home and that is being documented in epic. Please start oxycodone 5 mg every 8 hourly as needed. Full progress note will be done from tomorrow. Dr Nicole Carrion
[2022-09-20] MEDS: ATORVASTATIN 40 MG TAB PO SCH (20:10)
[2022-09-20] MEDS: FUROSEMIDE 40 MG TAB PO SCH (20:10)
[2022-09-20] MEDS: ALBUTEROL HFA 8 GM INHALER INH SCH (20:50)
[2022-09-20] MEDS ORDERED: NON-FORMULARY MEDICATION (Insulin Glargine [Lantus Solostar U-100 Insulin] 100 unit/mL (3 SQ SCH (21:00)
[2022-09-20] MEDS: ATENOLOL 50 MG TABLET PO SCH (22:18)
[2022-09-20] MEDS: clonazePAM 0.5 MG TAB PO SCH (22:18)
[2022-09-20] MEDS: MONTELUKAST SODIUM 10 MG TABLET PO SCH (22:19)
[2022-09-20] MEDS: traZODone HCL 100 MG TAB PO SCH (22:19)
[2022-09-20] MEDS: FAMOTIDINE 40 MG TABLET PO SCH (22:22)
[2022-09-20] MEDS ORDERED: diphenhydrAMINE Capsule 25 MG CAP PO ONE (22:41)
[2022-09-20 22:48] LABS: Appearance Urine Cloudy (Clear); Bacteria Urine Automated Negative (Negative); Bilirubin Urine Negative (Negative); Blood Urine 1+ (Negative); Color Urine Yellow; Epithelial Cell Urine Auto 20-30 /lpf (0-5); Glucose Urine UA Negative (Negative); Ketones Urine Negative (Negative); Leukocyte Esterase Urine 3+ (Negative); Nitrite Urine Positive (Negative); Protein Urine Negative (Negative); Urobilinogen Urine Negative (Negative); WBC Urine Automated >30 /hpf (0-5); pH Urine 6.5 (4.5-7.5)
[2022-09-21] MEDS: INSULIN ASPART PER UNIT CHARGE SC SCH ×6 (00:33→20:50)
[2022-09-21] MEDS: CYCLOBENZAPRINE HCL 5 MG TAB PO PRN (03:41)
[2022-09-21] MEDS: NSS + 20MEQ KCL 20 MEQ/1,000 ML BAG IV SCH (04:40)
[2022-09-21 06:15] LABS: A calco-baum cmplx NotReported Not Detected (NotDetected); Bact fragilis Not Reported Not Detected (NotDetected); C auris Not Reported Not Detected (NotDetected); Calbicans Not Reported Not Detected (NotDetected); Candida glabrata Not Reported Not Detected (NotDetected); Candida krusei Not Reported Not Detected (NotDetected); Cneoformans/gatti Not Reported Not Detected (NotDetected); Cparapsilosis Not Reported Not Detected (NotDetected); Ctropicalis Not Reported Not Detected (NotDetected); E cloacae compx Not Reported Not Detected (NotDetected); Efaecalis Not Reported Not Detected (NotDetected); Efaecium Not Reported Not Detected (NotDetected); Enterobacterales Not Reported Not Detected (NotDetected); Escherichia coli Not Reported Not Detected (NotDetected); H influenzae Not Reported Not Detected (NotDetected); K aerogenes Not Reported Not Detected (NotDetected); Koxytoca Not Reported Not Detected (NotDetected); Kpneumoniae grp Not Reported Not Detected (NotDetected); Lmonocyt Not Reported Not Detected (NotDetected); N meningitidis Not Reported Not Detected (NotDetected); P aeruginosa Not Reported Not Detected (NotDetected); Proteus spp Not Reported Not Detected (NotDetected); Salmonella spp Not Reported Not Detected (NotDetected); Smarcescens Not Reported Not Detected (NotDetected); Staph lugdunensis Not Reported Not Detected (NotDetected); Staph spp. Not Reported DETECTED (NotDetected); Staphaureus Not Reported Not Detected (NotDetected); Staphepi Not Reported DETECTED (NotDetected); Staphylococcus spp. DETECTED (NotDetected); Stenmaltophilia Not Reported Not Detected (NotDetected); Strep agal(GrpB) Not Reported Not Detected (NotDetected); Strep pneum Not Reported Not Detected (NotDetected); Strep pyog (GrpA) Not Reported Not Detected (NotDetected); Strep spp Not Reported Not Detected (NotDetected); mecAC Resistant Gene DETECTED (NotDetected)
[2022-09-21] MEDS: LEVOTHYROXINE SODIUM 100 MCG TABLET PO SCH (06:21)
[2022-09-21] MEDS: ERTAPENEM SODIUM 1,000 MG in SYRINGE 0 ML IV SCH (06:21)
[2022-09-21] MEDS: LINACLOTIDE 145 MCG CAPSULE PO SCH (06:21)
[2022-09-21 06:31] LABS: Staphylococcus epidermidis DETECTED (NotDetected)
[2022-09-21] MEDS: ALBUTEROL HFA 8 GM INHALER INH SCH ×2 (07:11→20:05)
[2022-09-21 07:37] LABS: Anion Gap 6 (3-11); BUN Creatinine Ratio 32.4 (10-20); Blood Urea Nitrogen 11 mg/dl (6-23); Calcium 8.5 mg/dl (8.6-10.3); Carbon Dioxide 32 mmol/L (21-32); Chloride 102 mmol/L (98-107); Creatinine Clr Calc Pharmacy 280.8 ml/min; Est GFR (African American) > 150.0 ml/min; Est GFR (Non-African American) 142.4 ml/min; Glucose 117 mg/dl (70-99(Fasting)); Magnesium 1.7 mg/dl (1.7-2.4); Potassium 3.5 mmol/L (3.5-5.1); Sodium 140 mmol/L (136-145)
[2022-09-21 07:38] LABS: Basophils # (auto) 0.02 K/uL (0-0.2); Basophils % (auto) 0.3 %; Eosinophils % (auto) 1.5 %; Hematocrit (blood only) 34.5 % (37.0-47.0); Hemoglobin 10.8 g/dl (12.0-16.0); Immature Granulocytes # (auto) 0.02 K/uL (0.01-0.20); Immature Granulocytes % (auto) 0.3 %; Lymphocytes # (auto) 1.79 K/uL (1.2-3.4); Lymphocytes % (auto) 27.1 %; Mean Corpuscular Hemoglobin 29.9 pg (25.0-34.0); Mean Corpuscular Hgb Conc 31.3 g/dL (32.0-36.0); Mean Corpuscular Volume 95.6 fL (80.0-100.0); Mean Platelet Volume 10.4 fL (9.4-12.4); Monocytes # (auto) 0.66 K/uL (0.11-0.59); Neutrophils # (auto) 4.02 K/uL (1.40-6.50); Neutrophils % (auto) 60.8 %; Platelet Count 230 K/uL (130-400); RDW Coefficient of Variation 19.4 % (11.5-14.5); RDW Standard Deviation 67.7 fL (36.4-46.3); Red Blood Count 3.61 M/uL (4.20-5.40); White Blood Count 6.61 K/ul (4.8-10.8)
[2022-09-21] MEDS ORDERED: LANTUS PER UNIT CHARGE SC SCH ×3 (09:00→21:00)
[2022-09-21] MEDS: diazePAM 2 MG TABLET PO SCH ×3 (09:07→20:39)
[2022-09-21] MEDS: CYANOCOBALAMIN (B-12) 500 MCG TABLET PO SCH (09:10)
[2022-09-21] MEDS: VENLAFAXINE HCL XR 75 MG CAPXR PO SCH (09:10)
[2022-09-21] MEDS: DIVALPROEX EXTENDED RELEASE 500 MG TAB PO SCH (09:11)
[2022-09-21] MEDS: ADVANCED PROBIOTIC 1250 MG CAPSULE PO SCH (09:11)
[2022-09-21] MEDS: LORATADINE 10 MG TAB PO SCH (09:12)
[2022-09-21 09:31] LABS: Estimated Average Glucose 180 mg/dl; Hemoglobin A1C 7.9 % (4.5-5.6)
[2022-09-21] MEDS: UMECLIDINIUM/VILANTEROL 62.5/25MCG 7 PUFFS/INHALER INH SCH (09:36)
[2022-09-21] MEDS: FLUTICASONE FUROATE 100MCG 14 PUFFS/INHALER INH SCH (09:36)
[2022-09-21] MEDS: VENLAFAXINE HCL XR 150 MG CAPXR PO SCH (09:39)
[2022-09-21] MEDS: PANTOprazole 40 MG TAB PO SCH ×2 (11:52→20:40)
[2022-09-21] MEDS: DICYCLOMINE HCL 10 MG CAP PO SCH ×2 (11:52→18:08)
[2022-09-21] MEDS: MULTIVITAMIN TAB PO SCH (11:53)
[2022-09-21] MEDS: MAGNESIUM OXIDE 400 MG TAB PO SCH (11:53)
[2022-09-21] MEDS ORDERED: CYCLOBENZAPRINE HCL 5 MG TAB PO PRN (13:21)
--- NOTE | 2022-09-21 14:21 | Pharmacy Report ---
Pharmacy Glycemic Short Note 2 - Date of Service September 21, 2022 - Glycemic Short BSG Results (Last 24 hours): 09/20/22 09/20/22 09/20/22 16:46 20:08 23:43 Glucose POC Glucose 221 H 196 H 241 H 09/21/22 09/21/22 09/21/22 04:14 06:10 07:20 Glucose 117 H POC Glucose 136 H 150 H 09/21/22 11:22 Glucose POC Glucose 220 H OUTPATIENT ANTIDIABETIC REGIMEN: * Discussed with vamp liner, patient recently transitioned to Novolog insulin pump * basal 1.3 units/hr x 24 hours (31.2 units/day) * ICR: 5 * CF: 20 * Target of 140 mg/dL * TDD: ~55 units * A1c 7.4 06/2022 ASSESSMENT: 09/21/22: * BSGs trended down throughout the day yesterday, received 217 units of insulin * Fasting BSG of 150 mg/dL this morning * Inpatient insulin needs consistently far exceed reported outpatient doses * Patient reports desire to restart own insulin pump - since basal insulin has already been given this morning, will plan to restart insulin pump tomorrow morning. 09/20/22: * 37 year old admitted with UTI. Has history of drug resistant organisms, follows with ID outpatient and was referred to hospital for IV antibiotics. Type 2 diabetic managed on high amounts of insulin at home. Pharmacy consulted to help with glycemic management * Patient's BSGs in 300-400s this morning - was given IV insulin bolus in ER earlier this AM prior to consult. BSGs only trending down slightly. Patient takes 50 units of basal at home, unclear if missed dose last evening. Will give 50 units x 1 this AM. Per previous admissions, patient requiring larger amounts of basal insulin during infection. Will have scale for basal at HS * Started novolog based upon stress of outpatient dose. Contacted provider to order IV Kcl as K level low this AM. Held additional IV insulin until K repleted. PLAN FOR INPATIENT GLYCEMIC CONTROL: * Basal insulin * Lantus 30 units SC x 1 this morning * Lantus 10-30 units SC HS x 1 * Plan to restart insulin pump in AM * Bolus insulin * NovoLog per scale ACHS or Q6hrs while NPO * Goal Range: Low 110 mg/dL - High 140 mg/dL * Correction Factor: 8 mg/dL/unit * Nutritional / Prandial insulin per carb ratio of 1 unit per 2 grams CHO c onsumed
[2022-09-21] MEDS ORDERED: FLUCONAZOLE 50 MG TAB PO ONE ×2 (15:21→15:22)
[2022-09-21] MEDS: FERROUS SULFATE 325 MG TAB PO SCH ×2 (15:25→20:40)
[2022-09-21] MEDS: APIXABAN 5 MG TABLET PO SCH ×2 (15:25→20:39)
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
[2022-09-21] MEDS: LOXAPINE SUCCINATE PO PRN (18:04)
[2022-09-21] MEDS: FUROSEMIDE 40 MG TAB PO SCH (18:06)
[2022-09-21] MEDS: ATORVASTATIN 40 MG TAB PO SCH (18:06)
--- NOTE | 2022-09-21 19:08 | Hospitalist Progress Note ---
Date of Service September 21, 2022 Assessment & Plan (1) UTI (urinary tract infection): Plan: Patient is a 37 yr female who was sent in from Infectious Disease because of urinary tract infection with Morganella. Urinary tract infection with Morganella Rule out Bacteremia UTI likely due to urostomy -- Blood culture 1/2: Gram-positive cocci in clusters; Staph epidermidis on bio fire -- Urine culture from 09/17/2022 growing Morganella -- Continue Invanz for 2 weeks as recommended by ID Will repeat blood cultures tomorrow Right labial cellulitis-POA Vaginal discharge S/P IUD H/O vaginal Melida Diflucan for 2 doses Appreciate SUPERVISOR [employer]OPELLANT [employer]GE LOADING input Continue antibiotics as above Follow-up cultures DM II HbA1c 7.9 Continue insulin per protocol Monitor blood glucose levels Appreciate glycemic pharmacy help Hypokalemia Replace and monitor Elevated lactic acid possible due to ongoing infection Improved with IV fluids Obstructive sleep apnea Obesity hypoventilation syndrome On BiPAP at night Hypertension on atenolol and Lasix Monitor Hypothyroidism on levothyroxine Chronic hypoxic hypercarbic respiratory failure Continue BiPAP, supplemental oxygen Bipolar disorder, depression Continue home medications. H/O spina bifida S/P ventriculoperitoneal shunt chronic migraines Continue home medications. Morbid obesity BMI 47 . H/O PE on Eliquis DVT Px on Eliquis. CODE STATUS Full code Admission and Anticipated Discharge Date Admission Date: September 20, 2022 Subjective Patient is seen and examined at bedside Reports abdominal, back spasms Also reports vaginal discharge since IUD placement Discussed with SUPERVISOR PROPELLANT CHARGE LOADING today Also discussed with patient's family at bedside No other complaints Review of Systems Review of Systems: All systems reviewed & are unremarkable except as noted in Subjective Physical Exam Physical Exam: Physical Exam: Vitals signs as noted above General Appearance:Morbidly Obese, no apparent distress Head: normocephalic, Atraumatic Eyes: normal inspection, EOMI Neck: supple, Trachea midline Respiratory/Chest: Normal breath sounds, CTA, No accessory muscle use Cardiovascular: S1, S2, No murmur Abdomen/GI:Soft, tender, + urostomy, colostomy Bowel sounds present : Labial swelling Extremities/Musculoskeletal:normal inspection, no edema, B/L BKA Neurologic/Psych:AAOX3, grossly no focal neurological deficits Skin: normal color, warm Results & Data Results & Data Vital Signs (Past 12 Hours) Vital Signs Temp Pulse Pulse Resp BP Pulse Ox O2 Del Method 09/21/22 11:33 36.6 C 88 18 117/68 92 Room Air 09/21/22 07:59 83 20 94 Room Air 09/21/22 07:39 73 09/21/22 07:32 36.6 C 82 18 125/76 96 Room Air Laboratory Results Short CBC 09/21/22 Range/Units 06:10 WBC 6.61 (4.8-10.8) K/ul Hgb 10.8 L (12.0-16.0) g/dl Hct 34.5 L (37.0-47.0) % Plt Count 230 (130-400) K/uL BMP 09/21/22 06:10 Sodium 140 Potassium 3.5 Chloride 102 Carbon Dioxide 32 BUN 11 Creatinine 0.34 L Glucose 117 H Calcium 8.5 L Urine 09/20/22 Range/Units 22:36 Urine Color Yellow Urine Appearance Cloudy A (Clear) Urine pH 6.5 (4.5-7.5) Ur Specific [place] 1.010 (1.000-1.030) Urine Protein Negative (Negative) Urine Glucose (UA) Negative (Negative)
[2022-09-21] MEDS: traZODone HCL 100 MG TAB PO SCH (20:39)
[2022-09-21] MEDS: clonazePAM 0.5 MG TAB PO SCH (20:39)
[2022-09-21] MEDS: MONTELUKAST SODIUM 10 MG TABLET PO SCH (20:40)
[2022-09-21] MEDS: FAMOTIDINE 40 MG TABLET PO SCH (20:41)
[2022-09-21] MEDS: ATENOLOL 50 MG TABLET PO SCH (20:41)
[2022-09-21] MEDS ORDERED: ALBUMIN 25% 100 mL 25 GM/100 ML VIAL IV ONE (21:30)
[2022-09-21] MEDS ORDERED: MAGNESIUM SULFATE / D5W 1 GM/100 ML BAG IV ONE (21:31)
[2022-09-22] MEDS: ACETAMINOPHEN 325 MG TAB PO PRN ×3 (02:53→22:01)
[2022-09-22] MEDS: LEVOTHYROXINE SODIUM 100 MCG TABLET PO SCH (06:13)
[2022-09-22] MEDS: ERTAPENEM SODIUM 1,000 MG in SYRINGE 0 ML IV SCH (06:13)
[2022-09-22] MEDS: LINACLOTIDE 145 MCG CAPSULE PO SCH (06:13)
[2022-09-22 07:48] LABS: Hematocrit (blood only) 34.5 % (37.0-47.0); Hemoglobin 10.7 g/dl (12.0-16.0); Mean Corpuscular Hemoglobin 30.2 pg (25.0-34.0); Mean Corpuscular Volume 97.5 fL (80.0-100.0); Mean Platelet Volume 10.2 fL (9.4-12.4); Platelet Count 219 K/uL (130-400); RDW Coefficient of Variation 19.7 % (11.5-14.5); RDW Standard Deviation 70.2 fL (36.4-46.3); Red Blood Count 3.54 M/uL (4.20-5.40); White Blood Count 6.77 K/ul (4.8-10.8)
[2022-09-22] MEDS: ALBUTEROL HFA 8 GM INHALER INH SCH ×2 (08:02→19:44)
[2022-09-22 08:10] LABS: Anion Gap 8 (3-11); Calcium 9.1 mg/dl (8.6-10.3); Carbon Dioxide 33 mmol/L (21-32); Chloride 98 mmol/L (98-107); Potassium 3.7 mmol/L (3.5-5.1); Sodium 139 mmol/L (136-145)
[2022-09-22 08:16] LABS: BUN Creatinine Ratio 26.7 (10-20); Blood Urea Nitrogen 12 mg/dl (6-23); Creatinine Clr Calc Pharmacy 212.8 ml/min; Est GFR (African American) > 150.0 ml/min; Est GFR (Non-African American) 129.8 ml/min; Glucose 192 mg/dl (70-99(Fasting))
[2022-09-22] MEDS: INSULIN ASPART PER UNIT CHARGE SC SCH (08:16)
[2022-09-22] MEDS ORDERED: INSULIN ASPART 100 UNITS/ML VIAL SC PRN (08:30)
[2022-09-22] MEDS: BREXPIPRAZOLE 4 MG PO SCH (09:21)
[2022-09-22] MEDS: DIVALPROEX EXTENDED RELEASE 500 MG TAB PO SCH (09:21)
[2022-09-22] MEDS: CYANOCOBALAMIN (B-12) 500 MCG TABLET PO SCH (09:21)
[2022-09-22] MEDS: PANTOprazole 40 MG TAB PO SCH ×2 (09:21→22:09)
[2022-09-22] MEDS: APIXABAN 5 MG TABLET PO SCH ×2 (09:22→22:10)
[2022-09-22] MEDS: LORATADINE 10 MG TAB PO SCH (09:22)
[2022-09-22] MEDS: DICYCLOMINE HCL 10 MG CAP PO SCH ×2 (09:22→17:09)
[2022-09-22] MEDS: VENLAFAXINE HCL XR 75 MG CAPXR PO SCH (09:22)
[2022-09-22] MEDS: VENLAFAXINE HCL XR 150 MG CAPXR PO SCH (09:22)
[2022-09-22] MEDS: FERROUS SULFATE 325 MG TAB PO SCH ×2 (09:22→22:10)
[2022-09-22] MEDS: ADVANCED PROBIOTIC 1250 MG CAPSULE PO SCH (09:22)
[2022-09-22] MEDS: INSULIN, Rapid-Acting PUMP SCH ×4 (09:24→22:29)
[2022-09-22] MEDS: FLUTICASONE FUROATE 100MCG 14 PUFFS/INHALER INH SCH (09:24)
[2022-09-22] MEDS: UMECLIDINIUM/VILANTEROL 62.5/25MCG 7 PUFFS/INHALER INH SCH (09:24)
[2022-09-22] MEDS: diazePAM 2 MG TABLET PO SCH ×3 (09:27→22:02)
--- NOTE | 2022-09-22 12:32 | Pharmacy Report ---
Pharmacy Glycemic Short Note 2 - Date of Service September 22, 2022 - Glycemic Short BSG Results (Last 24 hours): 09/21/22 09/21/22 09/22/22 16:17 20:36 07:20 Glucose 192 H POC Glucose 162 H 164 H 09/22/22 09/22/22 07:51 11:50 Glucose POC Glucose 183 H 195 H OUTPATIENT ANTIDIABETIC REGIMEN: * Discussed with nutrition educator, patient recently transitioned to Novolog insulin pump * basal 1.3 units/hr x 24 hours (31.2 units/day) * ICR: 5 * CF: 20 * Target of 140 mg/dL * TDD: ~55 units * A1c 7.4 06/2022 ASSESSMENT: 09/22/22: * Patient transitioned back to insulin pump with HERNANDEZ Jamil today with breakfast * Pharmacy to sign off of consult while on pump 09/21/22: * BSGs trended down throughout the day yesterday, received 217 units of insulin * Fasting BSG of 150 mg/dL this morning * Inpatient insulin needs consistently far exceed reported outpatient doses * Patient reports desire to restart own insulin pump - since basal insulin has already been given this morning, will plan to restart insulin pump tomorrow morning. 09/20/22: * 37 year old admitted with UTI. Has history of drug resistant organisms, follows with ID outpatient and was referred to hospital for IV antibiotics. Ty pe 2 diabetic managed on high amounts of insulin at home. Pharmacy consulted to help with glycemic management * Patient's BSGs in 300-400s this morning - was given IV insulin bolus in ER earlier this AM prior to consult. BSGs only trending down slightly. Patient takes 50 units of basal at home, unclear if missed dose last evening. Will give 50 units x 1 this AM. Per previous admissions, patient requiring larger amounts of basal insulin during infection. Will have scale for basal at HS * Started novolog based upon stress of outpatient dose. Contacted provider to order IV Kcl as K level low this AM. Held additional IV insulin until K repleted. PLAN FOR INPATIENT GLYCEMIC CONTROL: * Discontinue Lantus + NovoLog SQ * Resume home insulin pump as above with breakfast this morning * Pharmacy sign off of consult
[2022-09-22] MEDS: MAGNESIUM OXIDE 400 MG TAB PO SCH (12:51)
[2022-09-22] MEDS: MULTIVITAMIN TAB PO SCH (12:51)
--- NOTE | 2022-09-22 16:51 | Hospitalist Progress Note ---
Date of Service September 22, 2022 Assessment & Plan (1) UTI (urinary tract infection): Plan: Patient is a 37 yr female who was sent in from Infectious Disease because of urinary tract infection with Morganella. Urinary tract infection with Morganella Rule out Bacteremia UTI likely due to urostomy -- Blood culture 1/2: Gram-positive cocci in clusters; Staph epidermidis on bio fire -- Urine culture from 09/17/2022 growing Morganella -- Continue Invanz for 2 weeks as recommended by ID repeat blood cultures pending Continue current management Right labial cellulitis-POA Vaginal discharge S/P IUD H/O vaginal Melida Vulva culture growing gram negative bacilli Diflucan for 2 doses Appreciate SIGNAL ENGINEER input Continue antibiotics as above Follow-up cultures DM II HbA1c 7.9 Continue insulin per protocol Monitor blood glucose levels Appreciate glycemic pharmacy help Hypokalemia Replace and monitor Elevated lactic acid possible due to ongoing infection Improved with IV fluids Obstructive sleep apnea Obesity hypoventilation syndrome On BiPAP at night Hypertension on atenolol and Lasix Monitor Hypothyroidism on levothyroxine Chronic hypoxic hypercarbic respiratory failure Continue BiPAP, supplemental oxygen Bipolar disorder, depression Continue home medications. H/O spina bifida S/P ventriculoperitoneal shunt chronic migraines Continue home medications. Morbid obesity BMI 47 . H/O PE on Eliquis DVT Px on Eliquis. CODE STATUS Full code Admission and Anticipated Discharge Date Admission Date: September 20, 2022 Subjective Patient is seen and examined at bedside Drowsy this morning Abdominal pain, spasms better today per patient No other complaints Review of Systems Review of Systems: All systems reviewed & are unremarkable except as noted in Subjective Physical Exam Physical Exam: Physical Exam: Vitals signs as noted above General Appearance:Morbidly Obese, no apparent distress Head: normocephalic, Atraumatic Eyes: normal inspection, EOMI Neck: supple, Trachea midline Respiratory/Chest: Normal breath sounds, CTA, No accessory muscle use Cardiovascular: S1, S2, No murmur Abdomen/GI:Soft, tender, + urostomy, colostomy Bowel sounds present : Labial swelling Extremities/Musculoskeletal:normal inspection, no edema, B/L BKA Neurologic/Psych:AAOX3, grossly no focal neurological deficits Skin: normal color, warm Results & Data Results & Data Vital Signs (Past 12 Hours) Vital Signs Temp Pulse Pulse Resp BP BP Pulse Ox 09/22/22 16:41 09/22/22 14:56 36.4 C L 87 20 127/72 93 09/22/22 11:10 36.7 C 72 20 115/70 93 09/22/22 08:12 76 09/22/22 07:10 36.6 C 77 18 133/72 93 09/22/22 08:02 80 18 92 O2 Del Method 09/22/22 16:41 Room Air 09/22/22 14:56 Room Air 09/22/22 11:10 Room Air 09/22/22 08:12 09/22/22 07:10 CPAP 09/22/22 08:02 Room Air Laboratory Results Short CBC 09/22/22 Range/Units 07:20 WBC 6.77 (4.8-10.8) K/ul Hgb 10.7 L (12.0-16.0) g/dl Hct 34.5 L (37.0-47.0) % Plt Count 219 (130-400) K/uL BMP 09/22/22 07:20 Sodium 139 Potassium 3.7 Chloride 98 Carbon Dioxide 33 H BUN 12 Creatinine 0.45 L Glucose 192 H Calcium 9.1
[2022-09-22] MEDS: FUROSEMIDE 40 MG TAB PO SCH (17:10)
[2022-09-22] MEDS: ATORVASTATIN 40 MG TAB PO SCH (17:10)
[2022-09-22] MEDS: clonazePAM 0.5 MG TAB PO SCH (22:02)
[2022-09-22] MEDS: FAMOTIDINE 40 MG TABLET PO SCH (22:09)
[2022-09-22] MEDS: MONTELUKAST SODIUM 10 MG TABLET PO SCH (22:09)
[2022-09-22] MEDS: ATENOLOL 50 MG TABLET PO SCH (22:10)
[2022-09-22] MEDS: traZODone HCL 100 MG TAB PO SCH (22:10)
[2022-09-23] MEDS: CYCLOBENZAPRINE HCL 10 MG TAB PO PRN ×2 (04:30→10:36)
[2022-09-23] MEDS: LEVOTHYROXINE SODIUM 100 MCG TABLET PO SCH (05:38)
[2022-09-23] MEDS: LINACLOTIDE 145 MCG CAPSULE PO SCH (05:39)
[2022-09-23] MEDS: ERTAPENEM SODIUM 1,000 MG in SYRINGE 0 ML IV SCH (05:39)
[2022-09-23 06:31] LABS: Hematocrit (blood only) 35.2 % (37.0-47.0); Mean Corpuscular Hemoglobin 30.2 pg (25.0-34.0); Mean Corpuscular Hgb Conc 31.3 g/dL (32.0-36.0); Mean Corpuscular Volume 96.7 fL (80.0-100.0); Mean Platelet Volume 10.3 fL (9.4-12.4); Platelet Count 229 K/uL (130-400); RDW Coefficient of Variation 19.7 % (11.5-14.5); RDW Standard Deviation 69.5 fL (36.4-46.3); Red Blood Count 3.64 M/uL (4.20-5.40); White Blood Count 7.84 K/ul (4.8-10.8)
[2022-09-23 06:34] LABS: Anion Gap 7 (3-11); BUN Creatinine Ratio 33.3 (10-20); Blood Urea Nitrogen 14 mg/dl (6-23); Calcium 9.1 mg/dl (8.6-10.3); Carbon Dioxide 34 mmol/L (21-32); Chloride 97 mmol/L (98-107); Creatinine Clr Calc Pharmacy 219.8 ml/min; Est GFR (African American) > 150.0 ml/min; Est GFR (Non-African American) 132.8 ml/min; Glucose 173 mg/dl (70-99(Fasting)); Potassium 3.5 mmol/L (3.5-5.1); Sodium 138 mmol/L (136-145)
[2022-09-23] MEDS: ALBUTEROL HFA 8 GM INHALER INH SCH ×2 (07:12→19:53)
[2022-09-23] MEDS: BREXPIPRAZOLE 4 MG PO SCH (08:53)
[2022-09-23] MEDS: diazePAM 2 MG TABLET PO SCH ×3 (08:53→23:43)
[2022-09-23] MEDS: INSULIN, Rapid-Acting PUMP SCH ×4 (08:53→23:40)
[2022-09-23] MEDS: ADVANCED PROBIOTIC 1250 MG CAPSULE PO SCH (08:54)
[2022-09-23] MEDS: VENLAFAXINE HCL XR 150 MG CAPXR PO SCH (08:54)
[2022-09-23] MEDS: DIVALPROEX EXTENDED RELEASE 500 MG TAB PO SCH (08:54)
[2022-09-23] MEDS: LORATADINE 10 MG TAB PO SCH (08:54)
[2022-09-23] MEDS: VENLAFAXINE HCL XR 75 MG CAPXR PO SCH (08:54)
[2022-09-23] MEDS: DICYCLOMINE HCL 10 MG CAP PO SCH ×2 (08:54→17:28)
[2022-09-23] MEDS: PANTOprazole 40 MG TAB PO SCH ×2 (08:54→23:44)
[2022-09-23] MEDS: CYANOCOBALAMIN (B-12) 500 MCG TABLET PO SCH (08:55)
[2022-09-23] MEDS: FLUTICASONE FUROATE 100MCG 14 PUFFS/INHALER INH SCH (08:55)
[2022-09-23] MEDS: UMECLIDINIUM/VILANTEROL 62.5/25MCG 7 PUFFS/INHALER INH SCH (08:55)
[2022-09-23] MEDS: APIXABAN 5 MG TABLET PO SCH ×2 (08:55→23:46)
[2022-09-23] MEDS: FERROUS SULFATE 325 MG TAB PO SCH ×2 (08:55→23:48)
[2022-09-23] MEDS ORDERED: FLUCONAZOLE 50 MG TAB PO ONE (09:00)
[2022-09-23] MEDS: MAGNESIUM OXIDE 400 MG TAB PO SCH (11:44)
[2022-09-23] MEDS: MULTIVITAMIN TAB PO SCH (11:44)
[2022-09-23] MEDS: DAPTOmycin 450 MG in SYRINGE 0 ML IV SCH (13:51)
[2022-09-23] MEDS: FUROSEMIDE 40 MG TAB PO SCH (17:28)
[2022-09-23] MEDS: CEFEPIME 2,000 MG in SYRINGE 0 ML IV SCH (18:13)
[2022-09-23] MEDS: ACETAMINOPHEN 325 MG TAB PO PRN (18:25)
--- NOTE | 2022-09-23 18:43 | Hospitalist Progress Note ---
Date of Service September 23, 2022 Assessment & Plan (1) UTI (urinary tract infection): Plan: Patient is a 37 yr female who was sent in from Infectious Disease because of urinary tract infection with Morganella. Urinary tract infection with Morganella MRSA Bacteremia: POA UTI likely due to urostomy ? MRSA likely colonizer off IV port -- Blood culture: 06/06: Coagulase-negative staph, MRSA -- Repeat blood cultures negative to date -- Urine culture from 09/17/2022 growing Morganella -- Continue Invanz for 2 weeks as recommended by ID>> changed to cefepime on 09/23/2022 (as patient growing Pseudomonas on vaginal swab) --Started on daptomycin 09/23/[address]22 Appreciate infectious disease input CT abdomen to rule out pyelonephritis Echo ordered Currently cannot remove IV port due to access issues, plan for IV daptomycin lock therapy for the port Will need to consider to remove/replace the port eventually Right labial cellulitis-POA Vaginal discharge S/P IUD H/O vaginal Melida Vulva culture growing Pseudomonas Diflucan for 2 doses Appreciate GENERAL ENGINEER input Continue antibiotics as above Follow-up cultures DM II HbA1c 7.9 Continue insulin per protocol Monitor blood glucose levels Appreciate glycemic pharmacy help Hypokalemia Replace and monitor Elevated lactic acid possible due to ongoing infection Improved with IV fluids Obstructive sleep apnea Obesity hypoventilation syndrome On BiPAP at night Hypertension on atenolol and Lasix Monitor Hypothyroidism on levothyroxine Hyperlipidemia Hold Lipitor while on daptomycin Chronic hypoxic hypercarbic respiratory failure Continue BiPAP, supplemental oxygen Bipolar disorder, depression Continue home medications. H/O spina bifida S/P ventriculoperitoneal shunt chronic migraines Continue home medications. Morbid obesity BMI 47 . H/O PE on Eliquis DVT Px on Eliquis. CODE STATUS Full code Admission and Anticipated Discharge Date Admission Date: September 20, 2022 Subjective Patient is seen and examined at bedside States feeling better today Reports intermittent nausea but otherwise feels well More alert, awake today Abdominal pain, spasms improved Discussed with infectious disease today Review of Systems Review of Systems: All systems reviewed & are unremarkable except as noted in Subjective Physical Exam Physical Exam: Physical Exam: Vitals signs as noted above General Appearance:Morbidly Obese, no apparent distress Head: normocephalic, Atraumatic Eyes: normal inspection, EOMI Neck: supple, Trachea midline Respiratory/Chest: Normal breath sounds, CTA, No accessory muscle use Cardiovascular: S1, S2, No murmur Abdomen/GI:Soft, tender, + urostomy, colostomy Bowel sounds present : Labial swelling Extremities/Musculoskeletal:normal inspection, no edema, B/L BKA Neurologic/Psych:AAOX3, grossly no focal neurological deficits Skin: normal color, warm Results & Data Results & Data Vital Signs (Past 12 Hours) Vital Signs Temp Pulse Pulse Resp BP Pulse Ox O2 Del Method 09/23/22 16:29 96 H 09/23/22 11:39 36.6 C 83 18 119/73 95 Room Air 09/23/22 11:03 Room Air 09/23/22 07:22 73 16 94 Room Air 09/23/22 07:15 80 09/23/22 06:43 36.6 C 75 18 129/78 93 Room Air Laboratory Results Short CBC 09/23/22 Range/Units 05:49 WBC 7.84 (4.8-10.8) K/ul Hgb 11.0 L (12.0-16.0) g/dl Hct 35.2 L (37.0-47.0) % Plt Count 229 (130-400) K/uL BMP 09/23/22 05:49 Sodium 138 Potassium 3.5 Chloride 97 L Carbon Dioxide 34 H BUN 14 Creatinine 0.42 L Glucose 173 H Calcium 9.1 Cardiac Enzymes 09/23/22 Range/Units 12:15 Total Creatine Kinase < 10 L (26-192) U/L
[2022-09-23] MEDS: PROMETHAZINE HCL 6.25 MG in SODIUM CHLORIDE 0.9% 50 ML IV PRN (20:58)
[2022-09-23] MEDS ORDERED: LACTATED RINGER S IV SCH (21:00)
[2022-09-23] MEDS ORDERED: DAPTOMYCIN IV SCH (21:00)
[2022-09-23] MEDS ORDERED: HEPARIN SODIUM IV SCH (21:00)
[2022-09-23] MEDS: clonazePAM 0.5 MG TAB PO SCH (23:43)
[2022-09-23] MEDS: traZODone HCL 100 MG TAB PO SCH (23:43)
[2022-09-23] MEDS: FAMOTIDINE 40 MG TABLET PO SCH (23:45)
[2022-09-23] MEDS: MONTELUKAST SODIUM 10 MG TABLET PO SCH (23:45)
[2022-09-23] MEDS: ATENOLOL 50 MG TABLET PO SCH (23:46)
--- NOTE | 2022-09-24 00:18 | CT Scan Report ---
Exam(s): CT ABDOMEN + PELVIS Without Contrast EXAM: CT Abdomen and Pelvis Without Intravenous Contrast CLINICAL HISTORY: Reason for exam: Rule out pyelonephritis, H/O UTI, Labial Infection. TECHNIQUE: Axial computed tomography images of the abdomen and pelvis without intravenous contrast. CTDI is 35.91 mGy and DLP is 1925.24 mGy-cm. Automated exposure control was utilized for the study. A dose lowering technique was utilized adhering to the principles of ALARA. COMPARISON: Dated 07/28/22 FINDINGS: Lung bases: Unremarkable. No mass. No consolidation. ABDOMEN: Liver: Unremarkable. Gallbladder and bile ducts: Unremarkable. No calcified stones. No ductal dilation. Pancreas: Unremarkable. No ductal dilation. Spleen: Unremarkable. No splenomegaly. Adrenals: Unremarkable. No mass. Kidneys and ureters: Mild left-sided hydroureteronephrosis. There is mild left-sided urothelial thickening and periureteral stranding. Nonobstructing bilateral intrarenal calculi. Stomach and bowel: Left lower quadrant end colostomy. No obstruction. No mucosal thickening. PELVIS: Appendix: No findings to suggest acute appendicitis. Bladder: The patient is status post cystectomy with ileal conduit. Reproductive: IUD in place. ABDOMEN and PELVIS: Intraperitoneal space: Unremarkable. No free air. No significant fluid collection. Bones/joints: There is bilateral hip dysplasia. 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 No acute fracture. No dislocation. Soft tissues: Unremarkable. Vasculature: Unremarkable. No abdominal aortic aneurysm. Lymph nodes: Unremarkable. No enlarged lymph nodes. IMPRESSION: Mild left hydroureteronephrosis extending to the ileal conduit without evidence for obstructing calculus seen. Mild urothelial thickening and cornel-ureteral stranding may reflect underlying infection. Electronically signed by: Sourav Arias MD 09/24/22 00:17 AM
[2022-09-24] MEDS ORDERED: INSULIN ASPART PER UNIT CHARGE SC SCH (04:00)
[2022-09-24] MEDS ORDERED: [UNRECOGNIZED DRUG - REMARK] SCH (05:00)
[2022-09-24] MEDS: CEFEPIME 2,000 MG in SYRINGE 0 ML IV SCH ×2 (05:30→17:25)
[2022-09-24] MEDS: LEVOTHYROXINE SODIUM 100 MCG TABLET PO SCH (06:24)
[2022-09-24] MEDS: LINACLOTIDE 145 MCG CAPSULE PO SCH (06:25)
[2022-09-24] MEDS: ALBUTEROL HFA 8 GM INHALER INH SCH ×2 (06:28→20:30)
[2022-09-24] MEDS: INSULIN, Rapid-Acting PUMP SCH ×3 (09:00→17:00)
[2022-09-24] MEDS: CYANOCOBALAMIN (B-12) 500 MCG TABLET PO SCH (09:05)
[2022-09-24] MEDS: PANTOprazole 40 MG TAB PO SCH ×2 (09:05→22:02)
[2022-09-24] MEDS: LORATADINE 10 MG TAB PO SCH (09:06)
[2022-09-24] MEDS: ADVANCED PROBIOTIC 1250 MG CAPSULE PO SCH (09:06)
[2022-09-24] MEDS: DIVALPROEX EXTENDED RELEASE 500 MG TAB PO SCH (09:06)
[2022-09-24] MEDS: VENLAFAXINE HCL XR 150 MG CAPXR PO SCH (09:06)
[2022-09-24] MEDS: VENLAFAXINE HCL XR 75 MG CAPXR PO SCH (09:06)
[2022-09-24] MEDS: FERROUS SULFATE 325 MG TAB PO SCH ×2 (09:07→22:03)
[2022-09-24] MEDS: APIXABAN 5 MG TABLET PO SCH ×2 (09:07→22:03)
[2022-09-24] MEDS: DICYCLOMINE HCL 10 MG CAP PO SCH ×2 (09:07→17:24)
[2022-09-24] MEDS: BREXPIPRAZOLE 4 MG PO SCH (09:08)
[2022-09-24] MEDS: FLUTICASONE FUROATE 100MCG 14 PUFFS/INHALER INH SCH (09:08)
[2022-09-24] MEDS: UMECLIDINIUM/VILANTEROL 62.5/25MCG 7 PUFFS/INHALER INH SCH (09:09)
[2022-09-24] MEDS: diazePAM 2 MG TABLET PO SCH ×3 (09:16→22:07)
[2022-09-24] MEDS ORDERED: diphenhydrAMINE HCL 25 MG/10 ML UDC PO PRN (11:57)
[2022-09-24] MEDS ORDERED: PHARMACY GLYCEMIC MGMT CONSULT PRN ×2 (11:58→22:35)
[2022-09-24] MEDS: DAPTOmycin 450 MG in SYRINGE 0 ML IV SCH (12:43)
[2022-09-24] MEDS: MAGNESIUM OXIDE 400 MG TAB PO SCH (12:43)
[2022-09-24] MEDS: MULTIVITAMIN TAB PO SCH (12:44)
[2022-09-24] MEDS: diphenhydrAMINE Capsule 25 MG CAP PO PRN (13:58)
[2022-09-24] MEDS: FUROSEMIDE 40 MG TAB PO SCH (17:25)
--- NOTE | 2022-09-24 17:58 | Hospitalist Progress Note ---
Date of Service September 24, 2022 Assessment & Plan (1) UTI (urinary tract infection): Plan: Patient is a 37 yr female who was sent in from Infectious Disease because of urinary tract infection with Morganella. Complicated Urinary tract infection with Morganella MRSA Bacteremia: POA UTI likely due to urostomy ? MRSA likely colonizer off IV port -- Blood culture: 06/06: Coagulase-negative staph, MRSA -- Repeat blood cultures negative to date -- Urine culture from 09/17/2022 growing Morganella --CT ABD:Mild left hydroureteronephrosis extending to the ileal conduit without evidence for obstructing calculus seen. Mild urothelial thickening and cornel- ureteral stranding may reflect underlying infection. --ECHO: Technically limited study. Contrast injection of Definity was performed to improve for assessment of LV function. Left ventricle is normal in size. Normal left ventricle wall thickness. Left ventricle wall motion is normal. EF 60 to 65%. Valve structures are grossly normal. Technical limitations are insufficient for exclusion of vegetation. -- Continue Invanz for 2 weeks as recommended by ID>> changed to cefepime on 09/23/2022 (as patient growing Pseudomonas on vaginal swab) --Started on daptomycin 09/23/2022 Appreciate infectious disease input Currently cannot remove IV port due to access issues, received IV daptomycin lock therapy for the port Will need to consider to remove/replace the port eventually Continue current antibiotics--duration to be determined Right labial cellulitis-POA Vaginal discharge S/P IUD H/O vaginal Melida Vulva culture growing Pseudomonas, MRSA Diflucan for 2 doses Appreciate SPREADER input Continue antibiotics as above DM II HbA1c 7.9 Continue insulin per protocol Monitor blood glucose levels Appreciate glycemic pharmacy help Hypokalemia Replace and monitor Elevated lactic acid possible due to ongoing infection Improved with IV fluids Obstructive sleep apnea Obesity hypoventilation syndrome On BiPAP at night Hypertension on atenolol and Lasix Monitor Hypothyroidism on levothyroxine Hyperlipidemia Hold Lipitor while on daptomycin Chronic hypoxic hypercarbic respiratory failure Continue BiPAP, supplemental oxygen Bipolar disorder, depression Continue home medications. H/O spina bifida S/P ventriculoperitoneal shunt chronic migraines Continue home medications. Morbid obesity BMI 47 . H/O PE on Eliquis DVT Px on Eliquis. CODE STATUS Full code Admission and Anticipated Discharge Date Admission Date: September 20, 2022 Subjective Patient is seen and examined at bedside Reports itching this morning Abdominal spasms resolved No other complaints Denies any chest pain, dyspnea, dizziness No other complaints Review of Systems Review of Systems: All systems reviewed & are unremarkable except as noted in Subjective Physical Exam Physical Exam: Physical Exam: Vitals signs as noted above General Appearance:Morbidly Obese, no apparent distress Head: normocephalic, Atraumatic Eyes: normal inspection, EOMI Neck: supple, Trachea midline Respiratory/Chest: Normal breath sounds, CTA, No accessory muscle use Cardiovascular: S1, S2, No murmur Abdomen/GI:Soft, tender, + urostomy, colostomy Bowel sounds present : Labial swelling Extremities/Musculoskeletal:normal inspection, no edema, B/L BKA Neurologic/Psych:AAOX3, grossly no focal neurological deficits Skin: normal color, warm Results & Data Results & Data Vital Signs (Past 12 Hours) Vital Signs Temp Pulse Pulse Resp BP BP Pulse Ox 09/24/22 15:51 37.3 C 86 20 111/71 93 09/24/22 15:43 82 09/24/22 08:45 09/24/22 11:18 36.7 C 84 18 114/72 94 09/24/22 08:01 36.5 C 82 16 135/74 92 09/24/22 07:47 80 O2 Del Method 09/24/22 15:51 Room Air 09/24/22 15:43 09/24/22 08:45 Room Air 09/24/22 11:18 Room Air 09/24/22 08:01 Room Air 09/24/22 07:47
[2022-09-24] MEDS ORDERED: Nursing to Pharmacy Communication SCH (19:15)
[2022-09-24] MEDS: traZODone HCL 100 MG TAB PO SCH (22:01)
[2022-09-24] MEDS: ATENOLOL 50 MG TABLET PO SCH (22:04)
[2022-09-24] MEDS: MONTELUKAST SODIUM 10 MG TABLET PO SCH (22:04)
[2022-09-24] MEDS: clonazePAM 0.5 MG TAB PO SCH (22:07)
[2022-09-24] MEDS: FAMOTIDINE 40 MG TABLET PO SCH (22:08)
[2022-09-24] MEDS ORDERED: LANTUS PER UNIT CHARGE SC ONE (22:30)
[2022-09-24] MEDS: HEPARIN SODIUM IV SCH (22:34)
[2022-09-24] MEDS: LACTATED RINGER S IV SCH (22:34)
[2022-09-24] MEDS: DAPTOMYCIN IV SCH (22:34)
[2022-09-24] MEDS ORDERED: INSULIN ASPART PER UNIT CHARGE SC ONE (22:45)
[2022-09-24] MEDS ORDERED: [UNRECOGNIZED DRUG - REMARK] ONE (22:45)
[2022-09-25] MEDS: INSULIN, Rapid-Acting PUMP SCH (00:57)
[2022-09-25] MEDS: INSULIN ASPART PER UNIT CHARGE SC SCH ×5 (04:16→21:33)
[2022-09-25] MEDS: CEFEPIME 2,000 MG in SYRINGE 0 ML IV SCH (04:32)
[2022-09-25] MEDS ORDERED: Nursing to Pharmacy Communication SCH (04:45)
[2022-09-25] MEDS: LINACLOTIDE 145 MCG CAPSULE PO SCH (06:06)
[2022-09-25] MEDS: LEVOTHYROXINE SODIUM 100 MCG TABLET PO SCH (06:07)
[2022-09-25] MEDS: ALBUTEROL HFA 8 GM INHALER INH SCH ×2 (07:05→19:26)
[2022-09-25 08:51] LABS: Hematocrit (blood only) 36.2 % (37.0-47.0); Hemoglobin 11.2 g/dl (12.0-16.0); Mean Corpuscular Hemoglobin 29.2 pg (25.0-34.0); Mean Corpuscular Hgb Conc 30.9 g/dL (32.0-36.0); Mean Corpuscular Volume 94.3 fL (80.0-100.0); Mean Platelet Volume 10.3 fL (9.4-12.4); Platelet Count 260 K/uL (130-400); RDW Coefficient of Variation 19.4 % (11.5-14.5); RDW Standard Deviation 66.2 fL (36.4-46.3); Red Blood Count 3.84 M/uL (4.20-5.40); White Blood Count 8.35 K/ul (4.8-10.8)
[2022-09-25 08:56] LABS: Anion Gap 7 (3-11); BUN Creatinine Ratio 45.2 (10-20); Blood Urea Nitrogen 19 mg/dl (6-23); Calcium 9.3 mg/dl (8.6-10.3); Carbon Dioxide 30 mmol/L (21-32); Chloride 98 mmol/L (98-107); Creatinine Clr Calc Pharmacy 216.8 ml/min; Est GFR (African American) > 150.0 ml/min; Est GFR (Non-African American) 132.8 ml/min; Glucose 173 mg/dl (70-99(Fasting)); Potassium 3.5 mmol/L (3.5-5.1); Sodium 135 mmol/L (136-145)
[2022-09-25] MEDS: PROMETHAZINE HCL 6.25 MG in SODIUM CHLORIDE 0.9% 50 ML IV PRN (09:54)
[2022-09-25] MEDS: LORATADINE 10 MG TAB PO SCH (10:14)
[2022-09-25] MEDS: FERROUS SULFATE 325 MG TAB PO SCH ×2 (10:14→21:33)
[2022-09-25] MEDS: DICYCLOMINE HCL 10 MG CAP PO SCH ×2 (10:14→17:42)
[2022-09-25] MEDS: CYANOCOBALAMIN (B-12) 500 MCG TABLET PO SCH (10:14)
[2022-09-25] MEDS: ADVANCED PROBIOTIC 1250 MG CAPSULE PO SCH (10:14)
[2022-09-25] MEDS: VENLAFAXINE HCL XR 150 MG CAPXR PO SCH (10:14)
[2022-09-25] MEDS: VENLAFAXINE HCL XR 75 MG CAPXR PO SCH (10:14)
[2022-09-25] MEDS: DIVALPROEX EXTENDED RELEASE 500 MG TAB PO SCH (10:15)
[2022-09-25] MEDS: PANTOprazole 40 MG TAB PO SCH ×2 (10:15→21:31)
[2022-09-25] MEDS: APIXABAN 5 MG TABLET PO SCH ×2 (10:15→21:31)
[2022-09-25] MEDS: FLUTICASONE FUROATE 100MCG 14 PUFFS/INHALER INH SCH (10:16)
[2022-09-25] MEDS: UMECLIDINIUM/VILANTEROL 62.5/25MCG 7 PUFFS/INHALER INH SCH (10:16)
[2022-09-25] MEDS: BREXPIPRAZOLE 4 MG PO SCH (10:16)
[2022-09-25] MEDS: diazePAM 2 MG TABLET PO SCH ×3 (10:23→21:30)
[2022-09-25] MEDS: diphenhydrAMINE Capsule 25 MG CAP PO PRN ×2 (10:25→21:30)
[2022-09-25] MEDS: MAGNESIUM OXIDE 400 MG TAB PO SCH (10:26)
[2022-09-25] MEDS: MULTIVITAMIN TAB PO SCH (10:26)
[2022-09-25] MEDS: Cefepime 2,000 MG Extended Infusion IV SCH ×2 (12:03→21:35)
[2022-09-25] MEDS ORDERED: methylPREDNISolone 20 MG in SYRINGE 0 ML IV ONE (12:15)
[2022-09-25] MEDS ORDERED: CETIRIZINE HCL 10 MG TABLET PO SCH (12:15)
[2022-09-25] MEDS: DAPTOmycin 450 MG in SYRINGE 0 ML IV SCH (12:45)
--- NOTE | 2022-09-25 13:47 | Pharmacy Report ---
Pharmacy Glycemic Short Note 2 - Date of Service September 25, 2022 - Glycemic Short BSG Results (Last 24 hours): 09/24/22 09/24/22 09/24/22 16:23 20:46 20:58 Glucose POC Glucose 289 H 425 H* 461 H* 09/24/22 09/25/22 09/25/22 22:37 01:22 04:09 Glucose POC Glucose 410 H* 296 H 194 H 09/25/22 09/25/22 09/25/22 07:55 08:16 11:42 Glucose 173 H POC Glucose 178 H 252 H OUTPATIENT ANTIDIABETIC REGIMEN: * Discussed with health educator, patient recently transitioned to Novolog insulin pump * basal 1.3 units/hr x 24 hours (31.2 units/day) * ICR: 5 * CF: 20 * Target of 140 mg/dL * TDD: ~55 units * A1c 7.4 06/2022 ASSESSMENT: 09/25/22: * Pharmacy consult was discontinued on 09/22/22 when patient was transitioned to home insulin pump w/ help from CDE * Unfortunately, patient was unable to manage BSGs with current pump settings (BSG > 400 mg/dL), so decision was made to transition to SC basal/bolus last evening w/ pharmacy glycemic consult * Current insulin pump settings are certainly inadequate and will need to be adjusted prior to discharge w/ assistance from CDE * Will attempt to coordinate this early in the week * One dose of Solu-medrol 20 mg IV given around lunchtime 09/21/22: * BSGs trended down throughout the day yesterday, received 217 units of insulin * Fasting BSG of 150 mg/dL this morning * Inpatient insulin needs consistently far exceed reported outpatient doses * Patient reports desire to restart own insulin pump - since basal insulin has already been given this morning, will plan to restart insulin pump tomorrow morning. 09/20/22: * 37 year old admitted with UTI. Has history of drug resistant organisms, follows with ID outpatient and was referred to hospital for IV antibiotics. Type 2 diabetic managed on high amounts of insulin at home. Pharmacy consulted to help with glycemic management * Patient's BSGs in 300-400s this morning - was given IV insulin bolus in ER earlier this AM prior to consult. BSGs only trending down slightly. Patient takes 50 units of basal at home, unclear if missed dose last evening. Will give 50 units x 1 this AM. Per previous admissions, patient requiring larger amounts of basal insulin during infection. Will have scale for basal at HS * Started novolog based upon stress of outpatient dose. Contacted provider to order IV Kcl as K level low this AM. Held additional IV insulin until K repleted. PLAN FOR INPATIENT GLYCEMIC CONTROL: * Basal insulin * Lantus 50 units SC x 1 given last evening at time of pump discontinuation * Lantus 60 units SC x 1 with dinner tonight * Reassess in AM * Bolus insulin * NovoLog per scale ACHS or Q6hrs while NPO * Goal Range: Low 110 mg/dL - High 140 mg/dL * Correction Factor: 8 mg/dL/unit * Nutritional / Prandial insulin per carb ratio of 1 unit per 2 grams CHO consumed
[2022-09-25] MEDS ORDERED: LANTUS PER UNIT CHARGE SC ONE (16:30)
--- NOTE | 2022-09-25 16:41 | Hospitalist Progress Note ---
Date of Service September 25, 2022 Assessment & Plan (1) UTI (urinary tract infection): Plan: Patient is a 37 yr female who was sent in from Infectious Disease because of urinary tract infection with Morganella. Complicated Urinary tract infection with Morganella MRSA Bacteremia: POA UTI likely due to urostomy ? MRSA likely colonizer off IV port -- Blood culture: 06/06: Coagulase-negative staph, MRSA -- Repeat blood cultures negative to date -- Urine culture from 09/17/2022 growing Morganella --CT ABD:Mild left hydroureteronephrosis extending to the ileal conduit without evidence for obstructing calculus seen. Mild urothelial thickening and cornel- ureteral stranding may reflect underlying infection. --ECHO: Technically limited study. Contrast injection of Definity was performed to improve for assessment of LV function. Left ventricle is normal in size. Normal left ventricle wall thickness. Left ventricle wall motion is normal. EF 60 to 65%. Valve structures are grossly normal. Technical limitations are insufficient for exclusion of vegetation. -- Continue Invanz for 2 weeks as recommended by ID>> changed to cefepime on 09/23/2022 (as patient growing Pseudomonas on vaginal swab) --Started on daptomycin 09/23/2022 Appreciate infectious disease input Currently cannot remove IV port due to access issues, received IV daptomycin lock therapy for the port Will need to consider to remove/replace the port eventually Continue current antibiotics--duration to be determined Premedicate with Benadryl as needed if allergy symptoms persist Right labial cellulitis-POA Vaginal discharge S/P IUD H/O vaginal Melida Vulva culture growing Pseudomonas, MRSA Diflucan for 2 doses Appreciate SALES BROKER input Continue antibiotics as above DM II HbA1c 7.9 Continue insulin per protocol Monitor blood glucose levels Appreciate glycemic pharmacy help Hypokalemia Replace and monitor Elevated lactic acid possible due to ongoing infection Improved with IV fluids Obstructive sleep apnea Obesity hypoventilation syndrome On BiPAP at night Hypertension on atenolol and Lasix Monitor Hypothyroidism on levothyroxine Hyperlipidemia Hold Lipitor while on daptomycin Chronic hypoxic hypercarbic respiratory failure Continue BiPAP, supplemental oxygen Bipolar disorder, depression Continue home medications. H/O spina bifida S/P ventriculoperitoneal shunt chronic migraines Continue home medications. Morbid obesity BMI 47 . H/O PE on Eliquis DVT Px on Eliquis. CODE STATUS Full code Admission and Anticipated Discharge Date Admission Date: September 20, 2022 Subjective Patient is seen and examined at bedside Generalized itching better but still persistent Reports having poor sleep overnight States having some discomfort at urostomy site Denies any chest pain, dyspnea, dizziness Vaginal discharge much improved Review of Systems Review of Systems: All systems reviewed & are unremarkable except as noted in Subjective Physical Exam Physical Exam: Physical Exam: Vitals signs as noted above General Appearance:Morbidly Obese, no apparent distress Head: normocephalic, Atraumatic Eyes: normal inspection, EOMI Neck: supple, Trachea midline Respiratory/Chest: Normal breath sounds, CTA, No accessory muscle use Cardiovascular: S1, S2, No murmur Abdomen/GI:Soft, tender, + urostomy, colostomy Bowel sounds present : Labial swelling Extremities/Musculoskeletal:normal inspection, no edema, B/L BKA Neurologic/Psych:AAOX3, grossly no focal neurological deficits Skin: normal color, warm Results & Data Results & Data Vital Signs (Past 12 Hours) Vital Signs Temp Pulse Pulse Resp BP BP Pulse Ox 09/25/22 16:25 36.6 C 85 20 112/70 92 09/25/22 15:33 91 H 09/25/22 11:17 36.6 C 90 18 114/74 92 09/25/22 08:09 36.6 C 78 16 117/67 91 09/25/22 07:16 82 09/25/22 07:05 87 16 93 O2 Del Method 09/25/22 16:25 Room Air 09/25/22 15:33 09/25/22 11:17 Room Air 09/25/22 08:09 Room Air 09/25/22 07:16 09/25/22 07:05 Room Air Laboratory Results Short CBC 09/25/22 Range/Units 08:16 WBC 8.35 (4.8-10.8) K/ul Hgb 11.2 L (12.0-16.0) g/dl Hct 36.2 L (37.0-47.0) % Plt Count 260 (130-400) K/uL BMP 09/25/22 08:16 Sodium 135 L Potassium 3.5 Chloride 98 Carbon Dioxide 30 BUN 19 Creatinine 0.42 L Glucose 173 H Calcium 9.3
[2022-09-25] MEDS: FUROSEMIDE 40 MG TAB PO SCH (17:28)
[2022-09-25] MEDS ORDERED: LANTUS PER UNIT CHARGE SC SCH (21:00)
[2022-09-25] MEDS: clonazePAM 0.5 MG TAB PO SCH (21:30)
[2022-09-25] MEDS: MONTELUKAST SODIUM 10 MG TABLET PO SCH (21:32)
[2022-09-25] MEDS: traZODone HCL 100 MG TAB PO SCH (21:32)
[2022-09-25] MEDS: FAMOTIDINE 40 MG TABLET PO SCH (21:33)
[2022-09-25] MEDS: ATENOLOL 50 MG TABLET PO SCH (21:35)
[2022-09-25] MEDS: [UNRECOGNIZED DRUG - REMARK] SCH (21:47)
[2022-09-25] MEDS: LACTATED RINGER S IV SCH (21:49)
[2022-09-25] MEDS: DAPTOMYCIN IV SCH (21:49)
[2022-09-25] MEDS: HEPARIN SODIUM IV SCH (21:49)
[2022-09-26 00:21] LABS: A calco-baum cmplx NotReported Not Detected (NotDetected); Bact fragilis Not Reported Not Detected (NotDetected); C auris Not Reported Not Detected (NotDetected); Calbicans Not Reported Not Detected (NotDetected); Candida glabrata Not Reported Not Detected (NotDetected); Candida krusei Not Reported Not Detected (NotDetected); Cneoformans/gatti Not Reported Not Detected (NotDetected); Cparapsilosis Not Reported Not Detected (NotDetected); Ctropicalis Not Reported Not Detected (NotDetected); E cloacae compx Not Reported Not Detected (NotDetected); Efaecalis Not Reported Not Detected (NotDetected); Efaecium Not Reported Not Detected (NotDetected); Enterobacterales Not Reported Not Detected (NotDetected); Escherichia coli Not Reported Not Detected (NotDetected); H influenzae Not Reported Not Detected (NotDetected); K aerogenes Not Reported Not Detected (NotDetected); Koxytoca Not Reported Not Detected (NotDetected); Kpneumoniae grp Not Reported Not Detected (NotDetected); Lmonocyt Not Reported Not Detected (NotDetected); N meningitidis Not Reported Not Detected (NotDetected); P aeruginosa Not Reported Not Detected (NotDetected); Proteus spp Not Reported Not Detected (NotDetected); Salmonella spp Not Reported Not Detected (NotDetected); Smarcescens Not Reported Not Detected (NotDetected); Staph lugdunensis Not Reported Not Detected (NotDetected); Staph spp. Not Reported DETECTED (NotDetected); Staphaureus Not Reported Not Detected (NotDetected); Staphepi Not Reported DETECTED (NotDetected); Stenmaltophilia Not Reported Not Detected (NotDetected); Strep agal(GrpB) Not Reported Not Detected (NotDetected); Strep pneum Not Reported Not Detected (NotDetected); Strep pyog (GrpA) Not Reported Not Detected (NotDetected); Strep spp Not Reported Not Detected (NotDetected)
[2022-09-26 00:31] LABS: Staphylococcus epidermidis DETECTED (NotDetected); Staphylococcus spp. DETECTED (NotDetected); mecAC Resistant Gene DETECTED (NotDetected)
[2022-09-26] MEDS: INSULIN ASPART PER UNIT CHARGE SC SCH ×7 (00:53→22:00)
[2022-09-26] MEDS: diphenhydrAMINE Capsule 25 MG CAP PO PRN ×3 (04:05→20:22)
[2022-09-26] MEDS: Cefepime 2,000 MG Extended Infusion IV SCH ×3 (04:16→21:57)
[2022-09-26] MEDS: LEVOTHYROXINE SODIUM 100 MCG TABLET PO SCH (05:25)
[2022-09-26] MEDS: LINACLOTIDE 145 MCG CAPSULE PO SCH (05:25)
[2022-09-26] MEDS: ALBUTEROL HFA 8 GM INHALER INH SCH ×2 (07:15→19:10)
[2022-09-26] MEDS: DIVALPROEX EXTENDED RELEASE 500 MG TAB PO SCH (08:42)
[2022-09-26] MEDS: diazePAM 2 MG TABLET PO SCH ×3 (08:42→21:58)
[2022-09-26] MEDS: VENLAFAXINE HCL XR 75 MG CAPXR PO SCH (08:43)
[2022-09-26] MEDS: CYANOCOBALAMIN (B-12) 500 MCG TABLET PO SCH (08:43)
[2022-09-26] MEDS: DICYCLOMINE HCL 10 MG CAP PO SCH ×2 (08:43→17:14)
[2022-09-26] MEDS: ADVANCED PROBIOTIC 1250 MG CAPSULE PO SCH (08:44)
[2022-09-26] MEDS: PANTOprazole 40 MG TAB PO SCH ×2 (08:44→22:01)
[2022-09-26] MEDS: FLUTICASONE FUROATE 100MCG 14 PUFFS/INHALER INH SCH (08:44)
[2022-09-26] MEDS: APIXABAN 5 MG TABLET PO SCH ×2 (08:44→21:59)
[2022-09-26] MEDS: FERROUS SULFATE 325 MG TAB PO SCH ×2 (08:44→22:01)
[2022-09-26] MEDS: BREXPIPRAZOLE 4 MG PO SCH (08:45)
[2022-09-26] MEDS: UMECLIDINIUM/VILANTEROL 62.5/25MCG 7 PUFFS/INHALER INH SCH (08:45)
[2022-09-26] MEDS: VENLAFAXINE HCL XR 150 MG CAPXR PO SCH (08:45)
[2022-09-26] MEDS: MAGNESIUM OXIDE 400 MG TAB PO SCH (12:01)
[2022-09-26] MEDS: MULTIVITAMIN TAB PO SCH (12:02)
[2022-09-26] MEDS: DAPTOmycin 450 MG in SYRINGE 0 ML IV SCH (13:28)
--- NOTE | 2022-09-26 14:09 | Pharmacy Report ---
Pharmacy Glycemic Short Note 2 - Date of Service September 26, 2022 - Glycemic Short BSG Results (Last 24 hours): 09/25/22 09/25/22 09/25/22 16:45 20:20 20:22 POC Glucose 257 H 400 H* 356 H* 09/26/22 09/26/22 09/26/22 00:21 00:29 03:56 POC Glucose 403 H* 344 H* 190 H 09/26/22 09/26/22 09/26/22 07:40 11:32 12:26 POC Glucose 153 H 174 H 167 H OUTPATIENT ANTIDIABETIC REGIMEN: * Discussed with staff educator, patient recently transitioned to Novolog insulin pump * basal 1.3 units/hr x 24 hours (31.2 units/day) * ICR: 5 * CF: 20 * Target of 140 mg/dL * TDD: ~55 units * A1c 7.4 06/2022 ASSESSMENT: 09/26/22 * Patient's BSGs yesterday were elevated- [phone] and overnight were 344 -190 mg/dL. * Patient received 169 units of insulin (60 units of basal and 109 units of bolus). She received an additional 29 units overnight. * Today's BSGs are 153-174 mg/dL. * Patient started on prednisone 20 mg daily @ 1400 today. * For Lantus, will increase to lantus 70 units daily- per previous records she requires around 70-80 units. For steroids, will add NPH 15 units (0.2 units/kg of adjusted body weight). * For Novolog will tighten CR slightly since steroids started. 09/25/22: * Pharmacy consult was discontinued on 09/22/22 when patient was transitioned to home insulin pump w/ help from CDE * Unfortunately, patient was unable to manage BSGs with current pump settings (BSG > 400 mg/dL), so decision was made to transition to SC basal/bolus last evening w/ pharmacy glycemic consult * Current insulin pump settings are certainly inadequate and will need to be adjusted prior to discharge w/ assistance from CDE * Will attempt to coordinate this early in the week * One dose of Solu-medrol 20 mg IV given around lunchtime 09/21/22: * BSGs trended down throughout the day yesterday, received 217 units of insulin * Fasting BSG of 150 mg/dL this morning * Inpatient insulin needs consistently far exceed reported outpatient doses * Patient reports desire to restart own insulin pump - since basal insulin has already been given this morning, will plan to restart insulin pump tomorrow morning. 09/20/22: * 37 year old admitted with UTI. Has history of drug resistant organisms, follows with ID outpatient and was referred to hospital for IV antibiotics. Type 2 diabetic managed on high amounts of insulin at home. Pharmacy consulted to help with glycemic management * Patient's BSGs in 300-400s this morning - was given IV insulin bolus in ER earlier this AM prior to consult. BSGs only trending down slightly. Patient takes 50 units of basal at home, unclear if missed dose last evening. Will give 50 units x 1 this AM. Per previous admissions, patient requiring larger amounts of basal insulin during infection. Will have scale for basal at HS * Started novolog based upon stress of outpatient dose. Contacted provider to order IV Kcl as K level low this AM. Held additional IV insulin until K repleted. PLAN FOR INPATIENT GLYCEMIC CONTROL: * Basal insulin * Lantus 70 units SQ HS * Bolus insulin * NovoLog per scale ACHS or Q6hrs while NPO * Goal Range: Low 110 mg/dL - High 140 mg/dL * Correction Factor: 8 mg/dL/unit * Nutritional / Prandial insulin per carb ratio of 1 unit per 1.5 grams CHO consumed
[2022-09-26] MEDS ORDERED: INSULIN HUMAN NPH SC ONE (14:15)
[2022-09-26] MEDS: predniSONE 20 MG TAB PO SCH (14:53)
[2022-09-26] MEDS: FUROSEMIDE 40 MG TAB PO SCH (17:14)
--- NOTE | 2022-09-26 17:58 | Hospitalist Progress Note ---
Date of Service September 26, 2022 Assessment & Plan (1) UTI (urinary tract infection): Plan: Patient is a 37 yr female who was sent in from Infectious Disease because of urinary tract infection with Morganella. Complicated Urinary tract infection with Morganella MRSA Bacteremia: POA UTI likely due to urostomy ? MRSA likely colonizer off IV port -- Blood culture: 06/06: Coagulase-negative staph, MRSA -- Repeat blood cultures negative to date -- Urine culture from 09/17/2022 growing Morganella --CT ABD:Mild left hydroureteronephrosis extending to the ileal conduit without evidence for obstructing calculus seen. Mild urothelial thickening and cornel- ureteral stranding may reflect underlying infection. --ECHO: Technically limited study. Contrast injection of Definity was performed to improve for assessment of LV function. Left ventricle is normal in size. Normal left ventricle wall thickness. Left ventricle wall motion is normal. EF 60 to 65%. Valve structures are grossly normal. Technical limitations are insufficient for exclusion of vegetation. -- Continue Invanz for 2 weeks as recommended by ID>> changed to cefepime on 09/23/2022 (as patient growing Pseudomonas on vaginal swab) --Started on daptomycin 09/23/2022 Appreciate infectious disease input Currently cannot remove IV port due to access issues, received IV daptomycin lock therapy for the port Will need to consider to remove/replace the port eventually Continue current antibiotics--duration to be determined Premedicate with Benadryl as needed if allergy symptoms persist Also started on low-dose prednisone Repeat blood cultures pending Right labial cellulitis-POA Vaginal discharge S/P IUD H/O vaginal Melida Vulva culture growing Pseudomonas, MRSA Diflucan for 2 doses Appreciate STUDY LEAD input Continue antibiotics as above DM II HbA1c 7.9 Continue insulin per protocol Monitor blood glucose levels Appreciate glycemic pharmacy help Hypokalemia Replace and monitor Elevated lactic acid possible due to ongoing infection Improved with IV fluids Obstructive sleep apnea Obesity hypoventilation syndrome On BiPAP at night Hypertension on atenolol and Lasix Monitor Hypothyroidism on levothyroxine Hyperlipidemia Hold Lipitor while on daptomycin Chronic hypoxic hypercarbic respiratory failure Continue BiPAP, supplemental oxygen Bipolar disorder, depression Continue home medications. H/O spina bifida S/P ventriculoperitoneal shunt chronic migraines Continue home medications. Morbid obesity BMI 47 . H/O PE on Eliquis DVT Px on Eliquis. CODE STATUS Full code Admission and Anticipated Discharge Date Admission Date: September 20, 2022 Subjective Patient is seen and examined at bedside States generalized rash improved Offers no new complaints Tolerating current antibiotics with Benadryl use No issues overnight Denies any abdominal pain today Also denies any chest pain, dyspnea, dizziness Review of Systems Review of Systems: All systems reviewed & are unremarkable except as noted in Subjective Physical Exam Physical Exam: Physical Exam: Vitals signs as noted above General Appearance:Morbidly Obese, no apparent distress Head: normocephalic, Atraumatic Eyes: normal inspection, EOMI Neck: supple, Trachea midline Respiratory/Chest: Normal breath sounds, CTA, No accessory muscle use Cardiovascular: S1, S2, No murmur Abdomen/GI:Soft, tender, + urostomy, colostomy Bowel sounds present : Labial swelling Extremities/Musculoskeletal:normal inspection, no edema, B/L BKA Neurologic/Psych:AAOX3, grossly no focal neurological deficits Skin: normal color, warm Results & Data Results & Data Vital Signs (Past 12 Hours) Vital Signs Temp Pulse Pulse Resp BP Pulse Ox O2 Del Method 09/26/22 16:21 90 09/26/22 16:21 36.9 C 90 18 106/68 93 Room Air 09/26/22 12:27 36.5 C 87 12 113/73 93 Room Air 09/26/22 11:37 37.0 C 85 17 113/74 91 Room Air 09/26/22 08:45 Room Air, BiPAP 09/26/22 08:29 36.4 C L 83 17 112/72 91 Room Air 09/26/22 07:16 83 11 L 91 Room Air 09/26/22 07:12 80 FiO2 09/26/22 16:21 09/26/22 16:21 09/26/22 12:27 09/26/22 11:37 09/26/22 08:45 09/26/22 08:29 09/26/22 07:16 21 09/26/22 07:12
[2022-09-26] MEDS ORDERED: LANTUS PER UNIT CHARGE SC ONE (21:00)
[2022-09-26] MEDS: [UNRECOGNIZED DRUG - REMARK] SCH (21:21)
[2022-09-26] MEDS: DAPTOMYCIN IV SCH (21:22)
[2022-09-26] MEDS: HEPARIN SODIUM IV SCH (21:22)
[2022-09-26] MEDS: LACTATED RINGER S IV SCH (21:22)
[2022-09-26] MEDS: clonazePAM 0.5 MG TAB PO SCH (21:58)
[2022-09-26] MEDS: traZODone HCL 100 MG TAB PO SCH (21:58)
[2022-09-26] MEDS: MONTELUKAST SODIUM 10 MG TABLET PO SCH (21:59)
[2022-09-26] MEDS: ATENOLOL 50 MG TABLET PO SCH (22:00)
[2022-09-26] MEDS: FAMOTIDINE 40 MG TABLET PO SCH (22:00)
[2022-09-27] MEDS: PROMETHAZINE HCL 6.25 MG in SODIUM CHLORIDE 0.9% 50 ML IV PRN (00:56)
[2022-09-27] MEDS: diphenhydrAMINE Capsule 25 MG CAP PO PRN ×3 (03:33→21:25)
[2022-09-27] MEDS: Cefepime 2,000 MG Extended Infusion IV SCH ×3 (04:20→21:54)
[2022-09-27] MEDS: LEVOTHYROXINE SODIUM 100 MCG TABLET PO SCH (06:24)
[2022-09-27] MEDS: LINACLOTIDE 145 MCG CAPSULE PO SCH (06:24)
[2022-09-27] MEDS: ALBUTEROL HFA 8 GM INHALER INH SCH ×2 (06:56→19:00)
[2022-09-27 07:44] LABS: Hematocrit (blood only) 37.8 % (37.0-47.0); Hemoglobin 11.9 g/dl (12.0-16.0); Mean Corpuscular Hemoglobin 29.8 pg (25.0-34.0); Mean Corpuscular Hgb Conc 31.5 g/dL (32.0-36.0); Mean Corpuscular Volume 94.7 fL (80.0-100.0); Mean Platelet Volume 10.3 fL (9.4-12.4); Platelet Count 307 K/uL (130-400); RDW Coefficient of Variation 19.1 % (11.5-14.5); Red Blood Count 3.99 M/uL (4.20-5.40); White Blood Count 8.89 K/ul (4.8-10.8)
[2022-09-27 08:02] LABS: BUN Creatinine Ratio 45.7 (10-20); Calcium 9.5 mg/dl (8.6-10.3); Creatinine Clr Calc Pharmacy 202.5 ml/min; Est GFR (African American) 149.4 ml/min; Est GFR (Non-African American) 128.9 ml/min; Potassium 3.6 mmol/L (3.5-5.1)
[2022-09-27] MEDS ORDERED: INSULIN HUMAN NPH SC ONE (09:00)
[2022-09-27] MEDS ORDERED: NovoLIN-N (NPH) PER UNIT CHARGE SQ ONE (09:00)
[2022-09-27] MEDS: predniSONE 20 MG TAB PO SCH (09:05)
[2022-09-27] MEDS: APIXABAN 5 MG TABLET PO SCH ×2 (09:05→21:22)
[2022-09-27] MEDS: PANTOprazole 40 MG TAB PO SCH ×2 (09:05→21:25)
[2022-09-27] MEDS: FERROUS SULFATE 325 MG TAB PO SCH ×2 (09:05→21:24)
[2022-09-27] MEDS: CYANOCOBALAMIN (B-12) 500 MCG TABLET PO SCH (09:06)
[2022-09-27] MEDS: ADVANCED PROBIOTIC 1250 MG CAPSULE PO SCH (09:06)
[2022-09-27] MEDS: VENLAFAXINE HCL XR 150 MG CAPXR PO SCH (09:06)
[2022-09-27] MEDS: DIVALPROEX EXTENDED RELEASE 500 MG TAB PO SCH (09:06)
[2022-09-27] MEDS: VENLAFAXINE HCL XR 75 MG CAPXR PO SCH (09:07)
[2022-09-27] MEDS: DICYCLOMINE HCL 10 MG CAP PO SCH ×2 (09:07→18:15)
[2022-09-27] MEDS: BREXPIPRAZOLE 4 MG PO SCH (09:08)
[2022-09-27] MEDS: UMECLIDINIUM/VILANTEROL 62.5/25MCG 7 PUFFS/INHALER INH SCH (09:09)
[2022-09-27] MEDS: FLUTICASONE FUROATE 100MCG 14 PUFFS/INHALER INH SCH (09:09)
[2022-09-27] MEDS: LOXAPINE SUCCINATE PO PRN (09:11)
[2022-09-27] MEDS: diazePAM 2 MG TABLET PO SCH ×3 (09:15→21:22)
[2022-09-27] MEDS: INSULIN ASPART PER UNIT CHARGE SC SCH ×4 (09:21→21:24)
--- NOTE | 2022-09-27 10:02 | Hospitalist Progress Note ---
Date of Service September 27, 2022 Assessment & Plan (1) UTI (urinary tract infection): Plan: Patient is a 37 yr female who was sent in from Infectious Disease because of urinary tract infection with Morganella. Complicated Urinary tract infection with Morganella MRSA Bacteremia: POA UTI likely due to urostomy MRSA likely colonizer off IV port -- Blood culture from 09/20: 06/06: Coagulase-negative staph, MRSA --Blood cultures from 09/24:06/08: Coagulase-negative staph -- Repeat blood cultures negative to date -- Urine culture from 09/17/2022 growing Morganella --CT ABD:Mild left hydroureteronephrosis extending to the ileal conduit without evidence for obstructing calculus seen. Mild urothelial thickening and cornel- ureteral stranding may reflect underlying infection. --ECHO: Technically limited study. Contrast injection of Definity was performed to improve for assessment of LV function. Left ventricle is normal in size. Normal left ventricle wall thickness. Left ventricle wall motion is normal. EF 60 to 65%. Valve structures are grossly normal. Technical limitations are insufficient for exclusion of vegetation. -- Continue Invanz for 2 weeks as recommended by ID>> changed to cefepime on 09/23/2022 (as patient growing Pseudomonas on vaginal swab) --Started on daptomycin 09/23/2022 Appreciate infectious disease input Received IV daptomycin lock therapy for the port Continue current antibiotics--duration to be determined Premedicate with Benadryl as needed if allergy symptoms persist Also started on low-dose prednisone Repeat blood cultures pending Discussed with infectious disease today: Recommends port removal. Also recommends 14-day course of antibiotics with daptomycin, cefepime Consulted surgery for port removal Will need PICC/midline as able Right labial cellulitis-POA Vaginitis-POA Vaginal discharge S/P IUD H/O vaginal Melida Vulva culture growing Pseudomonas, MRSA Diflucan for 2 doses Appreciate MOLD CHANGER input Continue antibiotics as above DM II HbA1c 7.9 Continue insulin per protocol Monitor blood glucose levels Appreciate glycemic pharmacy help Hypokalemia Replace and monitor Elevated lactic acid possible due to ongoing infection Improved with IV fluids Obstructive sleep apnea Obesity hypoventilation syndrome On BiPAP at night Hypertension on atenolol and Lasix Monitor Hypothyroidism on levothyroxine Hyperlipidemia Hold Lipitor while on daptomycin Chronic hypoxic hypercarbic respiratory failure Continue BiPAP, supplemental oxygen Bipolar disorder, depression Continue home medications. H/O spina bifida S/P ventriculoperitoneal shunt chronic migraines Continue home medications. Morbid obesity BMI 47 . H/O PE on Eliquis DVT Px on Eliquis. CODE STATUS Full code Admission and Anticipated Discharge Date Admission Date: September 20, 2022 Subjective Patient is seen and examined at bedside States feeling well today No new complaints Discussed with patient's mother at bedside Also discussed with infectious disease Tolerating current antibiotics Rash/itching continues to improve Denies any chest pain, dyspnea, dizziness, abd pain Reports chronic nausea Review of Systems Review of Systems: All systems reviewed & are unremarkable except as noted in Subjective Physical Exam Physical Exam: Physical Exam: Vitals signs as noted above General Appearance:Morbidly Obese, no apparent distress Head: normocephalic, Atraumatic Eyes: normal inspection, EOMI Neck: supple, Trachea midline Respiratory/Chest: Normal breath sounds, CTA, No accessory muscle use Cardiovascular: S1, S2, No murmur Abdomen/GI:Soft, tender, + urostomy, colostomy Bowel sounds present : Labial swelling Extremities/Musculoskeletal:normal inspection, no edema, B/L BKA Neurologic/Psych:AAOX3, grossly no focal neurological deficits Skin: normal color, warm Results & Data Results & Data Vital Signs (Past 12 Hours) Vital Signs Temp Pulse Pulse Resp BP BP Pulse Ox 09/27/22 07:36 36.5 C 62 18 112/74 95 09/27/22 06:56 74 18 97 09/27/22 03:25 36.6 C 76 18 113/72 96 09/27/22 00:00 93 H 09/26/22 23:58 37.3 C 83 18 113/67 96 O2 Del Method 09/27/22 07:36 Room Air 09/27/22 06:56 Room Air 09/27/22 03:25 BiPAP 09/27/22 00:00 09/26/22 23:58 Room Air Laboratory Results Short CBC 09/27/22 Range/Units 07:15 WBC 8.89 (4.8-10.8) K/ul Hgb 11.9 L (12.0-16.0) g/dl Hct 37.8 (37.0-47.0) % Plt Count 307 (130-400) K/uL BMP 09/27/22 07:15 Sodium 137 Potassium 3.6 Chloride 99 Carbon Dioxide 30 BUN 21 Creatinine 0.46 L Glucose 187 H Calcium 9.5
[2022-09-27] MEDS: MULTIVITAMIN TAB PO SCH (12:20)
[2022-09-27] MEDS: MAGNESIUM OXIDE 400 MG TAB PO SCH (12:20)
[2022-09-27] MEDS: DAPTOmycin 450 MG in SYRINGE 0 ML IV SCH (13:22)
[2022-09-27] MEDS: FUROSEMIDE 40 MG TAB PO SCH (17:25)
[2022-09-27] MEDS: ATENOLOL 50 MG TABLET PO SCH (21:22)
[2022-09-27] MEDS: clonazePAM 0.5 MG TAB PO SCH (21:22)
[2022-09-27] MEDS: FAMOTIDINE 40 MG TABLET PO SCH (21:23)
[2022-09-27] MEDS: MONTELUKAST SODIUM 10 MG TABLET PO SCH (21:24)
[2022-09-27] MEDS: LANTUS PER UNIT CHARGE SC SCH (21:24)
[2022-09-27] MEDS: traZODone HCL 100 MG TAB PO SCH (21:25)
[2022-09-27] MEDS: LACTATED RINGER S IV SCH (22:09)
[2022-09-27] MEDS: DAPTOMYCIN IV SCH (22:09)
[2022-09-27] MEDS: HEPARIN SODIUM IV SCH (22:09)
[2022-09-27] MEDS: [UNRECOGNIZED DRUG - REMARK] SCH (22:35)
[2022-09-28] MEDS ORDERED: HYDROCORTISONE 2.5% CR 30 GM TUBE EXT PRN (00:07)
[2022-09-28] MEDS: PROMETHAZINE HCL 6.25 MG in SODIUM CHLORIDE 0.9% 50 ML IV PRN (00:19)
[2022-09-28] MEDS: Cefepime 2,000 MG Extended Infusion IV SCH ×2 (03:42→13:41)
[2022-09-28] MEDS: LEVOTHYROXINE SODIUM 100 MCG TABLET PO SCH (05:46)
[2022-09-28] MEDS: LINACLOTIDE 145 MCG CAPSULE PO SCH (05:46)
[2022-09-28] MEDS: ALBUTEROL HFA 8 GM INHALER INH SCH ×2 (07:31→19:20)
[2022-09-28] MEDS ORDERED: INSULIN HUMAN NPH SC ONE (09:00)
[2022-09-28] MEDS: VENLAFAXINE HCL XR 75 MG CAPXR PO SCH (10:26)
[2022-09-28] MEDS: FERROUS SULFATE 325 MG TAB PO SCH ×2 (10:27→22:11)
[2022-09-28] MEDS: PANTOprazole 40 MG TAB PO SCH ×2 (10:27→21:38)
[2022-09-28] MEDS: ADVANCED PROBIOTIC 1250 MG CAPSULE PO SCH (10:27)
[2022-09-28] MEDS: MULTIVITAMIN TAB PO SCH (10:27)
[2022-09-28] MEDS: APIXABAN 5 MG TABLET PO SCH ×2 (10:28→21:36)
[2022-09-28] MEDS: CYANOCOBALAMIN (B-12) 500 MCG TABLET PO SCH (10:28)
[2022-09-28] MEDS: DIVALPROEX EXTENDED RELEASE 500 MG TAB PO SCH (10:28)
[2022-09-28] MEDS: MAGNESIUM OXIDE 400 MG TAB PO SCH (10:28)
[2022-09-28] MEDS: predniSONE 20 MG TAB PO SCH (10:29)
[2022-09-28] MEDS: VENLAFAXINE HCL XR 150 MG CAPXR PO SCH (10:29)
[2022-09-28] MEDS: BREXPIPRAZOLE 4 MG PO SCH (10:30)
[2022-09-28] MEDS: FLUTICASONE FUROATE 100MCG 14 PUFFS/INHALER INH SCH (10:31)
[2022-09-28] MEDS: UMECLIDINIUM/VILANTEROL 62.5/25MCG 7 PUFFS/INHALER INH SCH (10:31)
[2022-09-28] MEDS: diazePAM 2 MG TABLET PO SCH ×3 (10:38→21:37)
[2022-09-28] MEDS: INSULIN ASPART PER UNIT CHARGE SC SCH ×4 (10:47→22:11)
[2022-09-28] MEDS: DICYCLOMINE HCL 10 MG CAP PO SCH ×2 (10:48→17:28)
[2022-09-28] MEDS: diphenhydrAMINE Capsule 25 MG CAP PO PRN (12:54)
[2022-09-28] MEDS: DAPTOmycin 450 MG in SYRINGE 0 ML IV SCH (12:55)
[2022-09-28] MEDS ORDERED: diphenhydrAMINE Capsule 25 MG CAP PO ONE (15:15)
--- NOTE | 2022-09-28 15:21 | Pharmacy Report ---
Pharmacy Glycemic Short Note 2 - Date of Service September 28, 2022 - Glycemic Short BSG Results (Last 24 hours): 09/27/22 09/27/22 09/28/22 16:45 20:13 07:47 POC Glucose 236 H 306 H* 155 H 09/28/22 11:47 POC Glucose 188 H OUTPATIENT ANTIDIABETIC REGIMEN: * Discussed with clinical unit educator, patient recently transitioned to Novolog insulin pump * basal 1.3 units/hr x 24 hours (31.2 units/day) * ICR: 5 * CF: 20 * Target of 140 mg/dL * TDD: ~55 units * A1c 7.4 06/2022 ASSESSMENT: 09/28/22: * BSG's yesterday [phone] mg/dL. * Patient received 90 total units of basal insulin and 158 units of bolus insulin. * Morning NPH dose increased by 30% from 20 to 26 units today, given at time of prednisone 20mg administration.Final day of prednisone tomorrow AM. * Lunchtime BSG 188 mg/dL. Will maintain NovoLog 8-1.5 parameters given improvement of lunchtime BSG with increased NOH dose, and anticipated change in steroid regimen. * Fasting BSG of 155 mg/dL acceptable in regards to goal range. Will continue with previous HS Lantus dose of 70 units. 09/26/22 * Patient's BSGs yesterday were elevated- [phone] and overnight were 344 -190 mg/dL. * Patient received 169 units of insulin (60 units of basal and 109 units of bolus). She received an additional 29 units overnight. * Today's BSGs are 153-174 mg/dL. * Patient started on prednisone 20 mg daily @ 1400 today. * For Lantus, will increase to lantus 70 units daily- per previous records she requires around 70-80 units. For steroids, will add NPH 15 units (0.2 units/kg of adjusted body weight). * For Novolog will tighten CR slightly since steroids started. 09/25/22: * Pharmacy consult was discontinued on 09/22/22 when patient was transitioned to home insulin pump w/ help from CDE * Unfortunately, patient was unable to manage BSGs with current pump settings (BSG > 400 mg/dL), so decision was made to transition to SC basal/bolus last evening w/ pharmacy glycemic consult * Current insulin pump settings are certainly inadequate and will need to be adjusted prior to discharge w/ assistance from CDE * Will attempt to coordinate this early in the week * One dose of Solu-medrol 20 mg IV given around lunchtime 09/21/22: * BSGs trended down throughout the day yesterday, received 217 units of insulin * Fasting BSG of 150 mg/dL this morning * Inpatient insulin needs consistently far exceed reported outpatient doses * Patient reports desire to restart own insulin pump - since basal insulin has already been given this morning, will plan to restart insulin pump tomorrow morning. 09/20/22: * 37 year old admitted with UTI. Has history of drug resistant organisms, follows with ID outpatient and was referred to hospital for IV antibiotics. Type 2 diabetic managed on high amounts of insulin at home. Pharmacy consulted to help with glycemic management * Patient's BSGs in 300-400s this morning - was given IV insulin bolus in ER earlier this AM prior to consult. BSGs only trending down slightly. Patient takes 50 units of basal at home, unclear if missed dose last evening. Will give 50 units x 1 this AM. Per previous admissions, patient requiring larger amounts of basal insulin during infection. Will have scale for basal at HS * Started novolog based upon stress of outpatient dose. Contacted provider to order IV Kcl as K level low this AM. Held additional IV insulin until K repleted. PLAN FOR INPATIENT GLYCEMIC CONTROL: * Basal insulin * Lantus 70 units SQ HS * NPH 26 units SQ when prednisone 20mg administered in AM * Bolus insulin * NovoLog per scale ACHS or Q6hrs while NPO * Goal Range: Low 110 mg/dL - High 140 mg/dL * Correction Factor: 8 mg/dL/unit * Nutritional / Prandial insulin per carb ratio of 1 unit per 1.5 grams CHO consumed
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
[2022-09-28] MEDS: FUROSEMIDE 40 MG TAB PO SCH (17:28)
[2022-09-28] MEDS: CETIRIZINE HCL 10 MG TABLET PO PRN (18:27)
[2022-09-28] MEDS: AZTREONAM 2,000 MG in DEXTROSE 5% 100 ML IV SCH (18:27)
--- NOTE | 2022-09-28 19:53 | Hospitalist Progress Note ---
Date of Service September 28, 2022 Assessment & Plan (1) UTI (urinary tract infection): Plan: Patient is a 37 yr female who was sent in from Infectious Disease because of urinary tract infection with Morganella. Complicated Urinary tract infection with Morganella MRSA Bacteremia: POA UTI likely due to urostomy MRSA likely colonizer off IV port -- Blood culture from 09/20: 06/06: Coagulase-negative staph, MRSA --Blood cultures from 09/24:06/08: Coagulase-negative staph -- Repeat blood cultures negative to date -- Urine culture from 09/17/2022 growing Morganella --CT ABD:Mild left hydroureteronephrosis extending to the ileal conduit without evidence for obstructing calculus seen. Mild urothelial thickening and cornel- ureteral stranding may reflect underlying infection. --ECHO: Technically limited study. Contrast injection of Definity was performed to improve for assessment of LV function. Left ventricle is normal in size. Normal left ventricle wall thickness. Left ventricle wall motion is normal. EF 60 to 65%. Valve structures are grossly normal. Technical limitations are insufficient for exclusion of vegetation. -- Continue Invanz for 2 weeks as recommended by ID>> changed to cefepime on 09/23/2022 (as patient growing Pseudomonas on vaginal swab) --Started on daptomycin 09/23/2022 Appreciate infectious disease input Received IV daptomycin lock therapy for the port Continue current antibiotics--duration to be determined Premedicate with Benadryl as needed if allergy symptoms persist Also started on low-dose prednisone Repeat blood cultures pending Discussed with infectious disease 09/27: Recommends port removal. Also recommends 14-day course of antibiotics with daptomycin, cefepime Consulted surgery for port removal Will need PICC/midline as able 09/28 - Discussed w/Dr. Barrett (ID) - plan for port removal -ok to replace port at the same time. Given mrsa bacteremia - not recommended to keep the port. Pt should then be on 2 more weeks of daptomycin after port removal (replacement). Pt having rash w/ cefepime despite benadryl - discussed as well w/Dr. Barrett - switch to Aztreonam Right labial cellulitis-POA Vaginitis-POA Vaginal discharge S/P IUD H/O vaginal Melida Vulva culture growing Pseudomonas, MRSA Diflucan for 2 doses Appreciate DELINQUENCY COUNSELOR input Continue antibiotics as above DM II HbA1c 7.9 Continue insulin per protocol Monitor blood glucose levels Appreciate glycemic pharmacy help Hypokalemia Replace and monitor Elevated lactic acid possible due to ongoing infection Improved with IV fluids Obstructive sleep apnea Obesity hypoventilation syndrome On BiPAP at night Hypertension on atenolol and Lasix Monitor Hypothyroidism on levothyroxine Hyperlipidemia Hold Lipitor while on daptomycin Chronic hypoxic hypercarbic respiratory failure Continue BiPAP, supplemental oxygen Bipolar disorder, depression Continue home medications. H/O spina bifida S/P ventriculoperitoneal shunt chronic migraines Continue home medications. Morbid obesity BMI 47 . H/O PE on Eliquis DVT Px on Eliquis. CODE STATUS Full code Admission and Anticipated Discharge Date Admission Date: September 20, 2022 Subjective Patient seen in follow up of UTI, mrsa bacteremia Laying in bed in NAD Patient's mother at bedside and updated Pt denies any chest pain, dyspnea, dizziness, abd pain Discussed over the phone this AM with Dr. Barrett (ID) and Dr. Rubin (previous hospitalist on service). Plan to remove port, ok to replace port at the same time. Given mrsa bacteremia - port can not be kept. Pt also had rash again w/ cefepime despite given benadryl - resolved on my exam however pt would like to switch Abx if possible - discussed again w/ Dr. Barrett - switch to Aztreonam. Review of Systems Review of Systems: All systems reviewed & are unremarkable except as noted in Subjective Physical Exam Physical Exam: General Appearance:Morbidly Obese F in no apparent distress Head: normocephalic, Atraumatic Eyes: normal inspection, EOMI Neck: supple Respiratory/Chest: Normal breath sounds, CTA, No accessory muscle use Cardiovascular: S1, S2, No murmur Abdomen/GI:Soft, tender, + urostomy, colostomy Bowel sounds present : Labial swelling Extremities/Musculoskeletal:normal inspection, no edema, B/L BKA Neurologic/Psych:AAOX3, grossly no focal neurological deficits Skin: normal color, warm Results & Data Results & Data Vital Signs (Past 12 Hours) Vital Signs Temp Pulse Pulse Resp BP Pulse Ox O2 Del Method 09/28/22 19:21 86 20 96 Room Air 09/28/22 14:20 92 H 09/28/22 15:05 36.8 C 81 18 108/74 97 Room Air 09/28/22 14:31 Room Air 09/28/22 11:59 36.6 C 77 20 122/71 97 Room Air Medications Administered Current Inpatient Medications Acetaminophen (Acetaminophen 325 Mg Tab) 650 mg PO Q4H PRN PRN Reason: Pain or Fever Stop: 10/20/22 06:58 Last Admin: 09/23/22 18:25 Dose: 650 mg Albuterol (Albuterol Hfa 8 Gm Inhaler) 2 puffs INH BIDR [facility] Stop: 10/20/22 18:59 Last Admin: 09/28/22 19:20 Dose: 2 puffs Albuterol (Albuterol Hfa 8 Gm Inhaler) 2 puffs INH Q6H PRN PRN Reason: Shortness Of Breath Or Wheezing Stop: 10/20/22 06:58 Last Admin: 09/20/22 11:18 Dose: 2 puffs Apixaban (Apixaban 5 Mg Tablet) 5 mg PO AMHS [facility] Stop: 10/20/22 08:59 Last Admin: 09/28/22 10:28 Dose: 5 mg Atenolol (Atenolol 50 Mg Tablet) 100 mg PO HS [facility] Stop: 10/20/22 20:59 Last Admin: 09/27/22 21:22 Dose: 100 mg Atorvastatin Calcium (Atorvastatin 40 Mg Tab) 40 mg PO QDD [facility] Stop: 10/20/22 16:29 Last Admin: 09/22/22 17:10 Dose: 40 mg Brexpiprazole (Brexpiprazole 4 Mg Tab) 4 mg PO DAILY [facility] Stop: 10/22/22 08:59 Last Admin: 09/28/22 10:30 Dose: 4 mg Cetirizine HCl (Cetirizine Hcl 10 Mg Tablet) 10 mg PO BID PRN PRN Reason: Allergic Symptoms Stop: 10/25/22 20:59 Last Admin: 09/28/22 18:27 Dose: 10 mg Clonazepam (Clonazepam 0.5 Mg Tab) 0.5 mg PO HS [facility] Stop: 10/20/22 20:59 Last Admin: 09/27/22 21:22 Dose: 0.5 mg Cyanocobalamin (Cyanocobalamin (B-12) 500 Mcg Tablet) 1,000 mcg PO DAILY [facility] Stop: 10/20/22 08:59 Last Admin: 09/28/22 10:28 Dose: 1,000 mcg Cyclobenzaprine HCl (Cyclobenzaprine Hcl 10 Mg Tab) 5 mg PO Q6H PRN PRN Reason: muscle spasm Stop: 10/20/22 06:58 Last Admin: 09/23/22 10:36 Dose: 5 mg Dextrose (Dextrose 50% 50 Ml Syringe) 25 - 50 ml IV UD PRN; Protocol PRN Reason: Hypoglycemia Protocol Stop: 10/20/22 06:58 Diazepam (Diazepam 2 Mg Tablet) 2 mg PO TID [facility] Stop: 10/20/22 08:59 Last Admin: 09/28/22 13:50 Dose: 2 mg Dicyclomine HCl (Dicyclomine Hcl 10 Mg Cap) 20 mg PO BIDM [facility] Stop: 10/20/22 07:59 Last Admin: 09/28/22 17:28 Dose: 20 mg Diphenhydramine HCl (Diphenhydramine Capsule 25 Mg Cap) 25 mg PO Q6H PRN PRN Reason: Itching Stop: 10/24/22 13:18 Last Admin: 09/28/22 12:54 Dose: 25 mg Divalproex Sodium (Divalproex Extended Release 500 Mg Tab) 2,000 mg PO QAM [facility] Stop: 10/20/22 08:59 Last Admin: 09/28/22 10:28 Dose: 2,000 mg Famotidine (Famotidine 40 Mg Tablet) 40 mg PO HS [facility] Stop: 10/20/22 20:59 Last Admin: 09/27/22 21:23 Dose: 40 mg Ferrous Sulfate (Ferrous Sulfate 325 Mg Tab) 325 mg PO BID [facility] Stop: 10/20/22 08:59 Last Admin: 09/28/22 10:27 Dose: 325 mg Fluticasone Furoate (Fluticasone Furoate 100mcg 14 Puffs/Inhaler) 1 puffs INH DAILY [facility] Stop: 10/20/22 08:59 Last Admin: 09/28/22 10:31 Dose: 1 puffs Furosemide (Furosemide 40 Mg Tab) 40 mg PO QDD [facility] Stop: 10/20/22 16:29 Last Admin: 09/28/22 17:28 Dose: 40 mg Glucagon (Glucagon For Inj 1 Mg Vial) 1 mg SQ UD PRN; Protocol PRN Reason: Hypoglycemia Protocol Stop: 10/20/22 06:58 Glucose (Glucose 10 Tab/Tube) 4 - 8 tab PO UD PRN; Protocol PRN Reason: Hypoglycemia Treatment Stop: 10/20/22 06:58 Glucose (Glucose 40% Gel 15 Gm Tube) 15 - 30 gm PO UD PRN; Protocol PRN Reason: Hypoglycemia Protocol Stop: 10/20/22 06:58 Hydrocortisone (Hydrocortisone 2.5% Cr 30 Gm Tube) 1 appln EXT BID PRN PRN Reason: rash Stop: 10/28/22 00:06 Last Admin: 09/28/22 00:39 Dose: 1 appln Promethazine HCl 6.25 mg/ (Sodium Chloride) 50.25 mls @ 201 mls/hr IV Q6H PRN PRN Reason: Nausea And Vomiting Stop: 10/23/22 18:34 Last Infusion: 09/28/22 00:46 Dose: Infused Daptomycin 4 mg/ Heparin Sodium (Porcine) 4,000 units/Lactated Ringer's 0.8 mls @ 38.4 mls/hr IV Q24H [facility]; Protocol Stop: 10/07/22 20:59 Last Admin: 09/27/22 22:09 Dose: 38.4 mls/hr Daptomycin 600 mg/ Syringe 12 mls @ 6 mls/min IV Q24H [facility]; Protocol Stop: 10/07/22 12:59 Aztreonam 2,000 mg/ Dextrose 110 mls @ 110 mls/hr IV Q8H [facility]; Protocol Stop: 10/08/22 17:59 Last Admin: 09/28/22 18:27 Dose: 110 mls/hr Insulin Aspart (Insulin Aspart Per Unit Charge) 0 units SC ACHS [facility] Stop: 10/25/22 03:59 Last Admin: 09/28/22 17:28 Dose: 57 units Insulin Glargine (Lantus Per Unit Charge) 70 units SC HS [facility] Stop: 10/27/22 20:59 Last Admin: 09/27/22 21:24 Dose: 70 units Lactobacillus Acidophilus (Advanced Probiotic 1250 Mg Capsule) 2 cap PO QAM [facility] Stop: 10/20/22 08:59 Last Admin: 09/28/22 10:27 Dose: 2 cap Levalbuterol HCl (Levalbuterol Hcl 0.63 Mg/3 Ml Neb) 0.63 mg INH Q6H PRN; Protocol PRN Reason: Shortness Of Breath Stop: 10/20/22 06:58 Levothyroxine Sodium (Levothyroxine Sodium 100 Mcg Tablet) 100 mcg PO DAILYBB [facility] Stop: 10/20/22 08:59 Last Admin: 09/28/22 05:46 Dose: 100 mcg Linaclotide (Linaclotide 145 Mcg Capsule) 290 mcg PO DAILYBB [facility] Stop: 10/20/22 08:59 Last Admin: 09/28/22 05:46 Dose: 290 mcg Loratadine (Loratadine 10 Mg Tab) 20 mg PO QAM [facility] Stop: 10/20/22 08:59 Last Admin: 09/25/22 10:14 Dose: 20 mg Loxapine Succinate (Loxapine Succinate) 1 each PO TID PRN PRN Reason: Anxiety Stop: 10/21/22 13:59 Last Admin: 09/27/22 09:11 Dose: 1 each Magnesium Oxide (Magnesium Oxide 400 Mg Tab) 400 mg PO QDL [facility] Stop: 10/20/22 11:29 Last Admin: 09/28/22 10:28 Dose: 400 mg Miscellaneous (Carbohydrates For Hypoglycemia ) 15 - 30 gm PO UD PRN PRN Reason: Hypoglycemia Protocol Stop: 10/20/22 06:58 Miscellaneous (Stop Order [Daptomycin/Heparin Antibiotic Lock]) 1 each N/A DAILY@2058 [facility] Stop: 10/25/22 20:58 Last Admin: 09/27/22 22:35 Dose: 1 each Miscellaneous Information (Pharmacy Glycemic Mgmt Consult) 1 each N/A UD PRN PRN Reason: Consult Stop: 10/24/22 22:34 Montelukast Sodium (Montelukast Sodium 10 Mg Tablet) 10 mg PO PM [facility] Stop: 10/20/22 20:59 Last Admin: 09/27/22 21:24 Dose: 10 mg Multivitamins (Multivitamin Tab) 1 tab PO QDL [facility] Stop: 10/20/22 11:29 Last Admin: 09/28/22 10:27 Dose: 1 tab Nitroglycerin (Nitroglycerin Sl 0.4 Mg/Tab Tab) 0.4 mg SL UD PRN PRN Reason: Chest Pain Stop: 10/20/22 06:58 Nystatin (Nystatin Cr 15 Gm Tube) 1 appln EXT BID PRN PRN Reason: Skin Irritation Stop: 10/20/22 06:58 Oxycodone HCl (Oxycodone Hcl Ir 5 Mg Tab (Immediate Release)) 5 mg PO Q8H PRN PRN Reason: Pain Stop: 10/04/22 19:00 Pantoprazole Sodium (Pantoprazole 40 Mg Tab) 40 mg PO BID [facility] Stop: 10/20/22 08:59 Last Admin: 09/28/22 10:27 Dose: 40 mg Polyethylene Glycol (Polyethylene (Miralax) 17 Gm Pack) 17 gm PO DAILY PRN PRN Reason: Constipation Stop: 10/20/22 06:58 Prednisone (Prednisone 20 Mg Tab) 20 mg PO DAILY [facility] Stop: 09/29/22 13:59 Last Admin: 09/28/22 10:29 Dose: 20 mg Sucralfate (Sucralfate 1 Gm Tab) 1 gm PO BID PRN PRN Reason: gastritis Stop: 10/20/22 06:58 Trazodone HCl (Trazodone Hcl 100 Mg Tab) 300 mg PO HS [facility] Stop: 10/20/22 20:59 Last Admin: 09/27/22 21:25 Dose: 300 mg Umeclidinium/Vilanterol (Umeclidinium/Vilanterol 62.5/25mcg 7 Puffs/Inhaler) 1 puffs INH QAM [facility] Stop: 10/20/22 08:59 Last Admin: 09/28/22 10:31 Dose: 1 puffs Venlafaxine HCl (Venlafaxine Hcl Xr 75 Mg Capxr) 75 mg PO QAM [facility] Stop: 10/20/22 08:59 Last Admin: 09/28/22 10:26 Dose: 75 mg Venlafaxine HCl (Venlafaxine Hcl Xr 150 Mg Capxr) 150 mg PO QAM [facility] Stop: 10/20/22 08:59 Last Admin: 09/28/22 10:29 Dose: 150 mg
[2022-09-28] MEDS: clonazePAM 0.5 MG TAB PO SCH (21:37)
[2022-09-28] MEDS: LANTUS PER UNIT CHARGE SC SCH (21:37)
[2022-09-28] MEDS: FAMOTIDINE 40 MG TABLET PO SCH (21:37)
[2022-09-28] MEDS: ATENOLOL 50 MG TABLET PO SCH (21:37)
[2022-09-28] MEDS: traZODone HCL 100 MG TAB PO SCH (21:38)
[2022-09-28] MEDS: MONTELUKAST SODIUM 10 MG TABLET PO SCH (21:38)
[2022-09-28] MEDS: DAPTOMYCIN IV SCH (22:00)
[2022-09-28] MEDS: LACTATED RINGER S IV SCH (22:00)
[2022-09-28] MEDS: HEPARIN SODIUM IV SCH (22:00)
[2022-09-28] MEDS: [UNRECOGNIZED DRUG - REMARK] SCH (22:10)
[2022-09-29] MEDS: AZTREONAM 2,000 MG in DEXTROSE 5% 100 ML IV SCH ×3 (01:22→18:04)
[2022-09-29] MEDS: diphenhydrAMINE Capsule 25 MG CAP PO PRN ×5 (01:22→18:46)
[2022-09-29] MEDS: CETIRIZINE HCL 10 MG TABLET PO PRN (01:22)
[2022-09-29] MEDS: LINACLOTIDE 145 MCG CAPSULE PO SCH (06:06)
[2022-09-29] MEDS: LOXAPINE SUCCINATE PO PRN (06:06)
[2022-09-29] MEDS: LEVOTHYROXINE SODIUM 100 MCG TABLET PO SCH (06:06)
[2022-09-29] MEDS: ALBUTEROL HFA 8 GM INHALER INH SCH ×2 (07:34→19:11)
--- NOTE | 2022-09-29 08:17 | Hospitalist Progress Note ---
Date of Service September 29, 2022 Assessment & Plan (1) UTI (urinary tract infection): Plan: Patient is a 37 yr female who was sent in from Infectious Disease because of urinary tract infection with Morganella. Complicated Urinary tract infection with Morganella MRSA Bacteremia: POA UTI likely due to urostomy MRSA likely colonizer off IV port -- Blood culture from 09/20: 1: Coagulase-negative staph, MRSA --Blood cultures from 09/24:06/08: Coagulase-negative staph -- Repeat blood cultures negative to date -- Urine culture from 09/17/2022 growing Morganella --CT ABD:Mild left hydroureteronephrosis extending to the ileal conduit without evidence for obstructing calculus seen. Mild urothelial thickening and cornel- ureteral stranding may reflect underlying infection. --ECHO: Technically limited study. Contrast injection of Definity was performed to improve for assessment of LV function. Left ventricle is normal in size. Normal left ventricle wall thickness. Left ventricle wall motion is normal. EF 60 to 65%. Valve structures are grossly normal. Technical limitations are insufficient for exclusion of vegetation. -- Continue Invanz for 2 weeks as recommended by ID>> changed to cefepime on 09/23/2022 (as patient growing Pseudomonas on vaginal swab) -> changed to aztreonam (09/28 pm) --Started on daptomycin 09/23/2022 Appreciate infectious disease input Received IV daptomycin lock therapy for the port Continue current antibiotics--duration to be determined Premedicate with Benadryl as needed if allergy symptoms persist Also started on low-dose prednisone Repeat blood cultures pending Discussed with infectious disease 09/27: Recommends port removal. Also recommends 14-day course of antibiotics with daptomycin, cefepime Consulted surgery for port removal - discussed w/ surgeon (Dr. Washington) today 09/29 - hesitant about port removal at this time - plan to re-discuss w/ ID Will need PICC/midline as able 09/28 - Discussed w/Dr. Barrett (ID) - plan for port removal -ok to replace port at the same time. Given mrsa bacteremia - not recommended to keep the port. Pt should then be on 2 more weeks of daptomycin after port removal (replacement). Pt having rash w/ cefepime despite benadryl - discussed as well w/Dr. Barrett - switched to Aztreonam 09/29- - discussed w/ surgeon (Dr. 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 H/O spina bifida S/P ventriculoperitoneal shunt chronic migraines Continue home medications. Morbid obesity BMI 47 . H/O PE on Eliquis DVT Px on Eliquis. CODE STATUS Full code Admission and Anticipated Discharge Date Admission Date: September 20, 2022 Subjective Patient seen in follow up of UTI, mrsa bacteremia Laying in bed in NAD Pt denies any chest pain, dyspnea, dizziness, abd pain Discussed over the phone yesterday AM with Dr. Barrett (ID) and Dr. Rubin (previous hospitalist on service). Plan to remove port, ok to replace port at the same time. Given mrsa bacteremia - port can not be kept. Discussed today w/ surgeon - plan to discuss again w/ ID - if possible to keep the port and monitor (as pt had this procedure done before and makes this more difficult) Review of Systems Review of Systems: All systems reviewed & are unremarkable except as noted in Subjective Physical Exam Physical Exam: General Appearance:Morbidly Obese F in no apparent distress Head: normocephalic, Atraumatic Eyes: normal inspection, EOMI Neck: supple Respiratory/Chest: Normal breath sounds, CTA, No accessory muscle use Cardiovascular: S1, S2, No murmur Abdomen/GI: Soft, tender, + urostomy, colostomy Bowel sounds present : Labial swelling Extremities/Musculoskeletal:normal inspection, no edema, B/L BKA Neurologic/Psych:AAOX3, grossly no focal neurological deficits Skin: normal color, warm Results & Data Results & Data Vital Signs (Past 12 Hours) Vital Signs Temp Pulse Pulse Resp BP BP Pulse Ox 09/29/22 08:05 36.8 C 82 16 123/80 96 09/29/22 07:35 80 20 96 09/29/22 04:00 36.6 C 77 20 105/71 96 09/28/22 23:33 99 H 09/28/22 23:33 09/28/22 22:44 37.0 C 97 H 18 108/69 94 O2 Del Method 09/29/22 08:05 Room Air 09/29/22 07:35 Room Air 09/29/22 04:00 CPAP 09/28/22 23:33 09/28/22 23:33 Room Air 09/28/22 22:44 CPAP Laboratory Results 09/29/22 09/29/22 09/29/22 Range/Units 16:46 11:29 09:19 WBC (4.8-10.8) K/ul RBC (4.20-5.40) M/uL Hgb (12.0-16.0) g/dl Hct (37.0-47.0) % MCV (80.0-100.0) fL MCH (25.0-34.0) pg MCHC (32.0-36.0) g/dL RDW Std Deviation (36.4-46.3) fL RDW Coeff of Neda (11.5-14.5) % Plt Count (130-400) K/uL MPV (9.4-12.4) fL Sodium 135 L (136-145) mmol/L Potassium 3.3 L (3.5-5.1) mmol/L Chloride 102 (98-107) mmol/L Carbon Dioxide 26 (21-32) mmol/L Anion Gap 7 (3-11) BUN 17 (6-23) mg/dl Creatinine 0.42 L (0.6-1.2) mg/dl Est Cr Clr Drug Dosing 219.8 ml/min Est GFR ( Amer) > 150.0 ml/min Est GFR (Non-Af Amer) 132.8 ml/min BUN/Creatinine Ratio 40.5 H (10-20) Glucose 266 H (70-99(Fasting)) mg/dl POC Glucose 166 H 282 H (70-99) mg/dl Calcium 9.5 (8.6-10.3) mg/dl Phosphorus 3.6 (2.5-4.9) mg/dl Magnesium 2.1 (1.7-2.4) mg/dl 09/29/22 09/29/22 09/29/22 Range/Units 09:19 07:37 07:36 WBC 9.85 (4.8-10.8) K/ul RBC 4.09 L (4.20-5.40) M/uL Hgb 12.2 (12.0-16.0) g/dl Hct 39.0 (37.0-47.0) % MCV 95.4 (80.0-100.0) fL MCH 29.8 (25.0-34.0) pg MCHC 31.3 L (32.0-36.0) g/dL RDW Std Deviation 65.6 H (36.4-46.3) fL RDW Coeff of Neda 19.0 H (11.5-14.5) % Plt Count 285 (130-400) K/uL MPV 10.3 (9.4-12.4) fL Sodium (136-145) mmol/L Potassium (3.5-5.1) mmol/L Chloride (98-107) mmol/L Carbon Dioxide (21-32) mmol/L Anion Gap (3-11) BUN (6-23) mg/dl Creatinine (0.6-1.2) mg/dl Est Cr Clr Drug Dosing ml/min Est GFR ( Amer) ml/min Est GFR (Non-Af Amer) ml/min BUN/Creatinine Ratio (10-20) Glucose (70-99(Fasting)) mg/dl POC Glucose 362 H* 350 H* (70-99) mg/dl Calcium (8.6-10.3) mg/dl Phosphorus (2.5-4.9) mg/dl Magnesium (1.7-2.4) mg/dl 09/28/22 09/28/22 Range/Units 20:30 20:28 WBC (4.8-10.8) K/ul RBC (4.20-5.40) M/uL Hgb (12.0-16.0) g/dl Hct (37.0-47.0) % MCV (80.0-100.0) fL MCH (25.0-34.0) pg MCHC (32.0-36.0) g/dL RDW Std Deviation (36.4-46.3) fL RDW Coeff of Neda (11.5-14.5) % Plt Count (130-400) K/uL MPV (9.4-12.4) fL Sodium (136-145) mmol/L Potassium (3.5-5.1) mmol/L Chloride (98-107) mmol/L Carbon Dioxide (21-32) mmol/L Anion Gap (3-11) BUN (6-23) mg/dl Creatinine (0.6-1.2) mg/dl Est Cr Clr Drug Dosing ml/min Est GFR ( Amer) ml/min Est GFR (Non-Af Amer) ml/min BUN/Creatinine Ratio (10-20) Glucose (70-99(Fasting)) mg/dl POC Glucose 366 H* 398 H* (70-99) mg/dl Calcium (8.6-10.3) mg/dl Phosphorus (2.5-4.9) mg/dl Magnesium (1.7-2.4) mg/dl Medications Administered Current Inpatient Medications Acetaminophen (Acetaminophen 325 Mg Tab) 650 mg PO Q4H PRN PRN Reason: Pain or Fever Stop: 10/20/22 06:58 Last Admin: 09/23/22 18:25 Dose: 650 mg Albuterol (Albuterol Hfa 8 Gm Inhaler) 2 puffs INH BIDR [facility] Stop: 10/20/22 18:59 Last Admin: 09/29/22 07:34 Dose: 2 puffs Albuterol (Albuterol Hfa 8 Gm Inhaler) 2 puffs INH Q6H PRN PRN Reason: Shortness Of Breath Or Wheezing Stop: 10/20/22 06:58 Last Admin: 09/20/22 11:18 Dose: 2 puffs Apixaban (Apixaban 5 Mg Tablet) 5 mg PO AMHS [facility] Stop: 10/20/22 08:59 Last Admin: 09/28/22 21:36 Dose: 5 mg Atenolol (Atenolol 50 Mg Tablet) 100 mg PO HS [facility] Stop: 10/20/22 20:59 Last Admin: 09/28/22 21:37 Dose: 100 mg Atorvastatin Calcium (Atorvastatin 40 Mg Tab) 40 mg PO QDD [facility] Stop: 10/20/22 16:29 Last Admin: 09/22/22 17:10 Dose: 40 mg Brexpiprazole (Brexpiprazole 4 Mg Tab) 4 mg PO DAILY [facility] Stop: 10/22/22 08:59 Last Admin: 09/28/22 10:30 Dose: 4 mg Cetirizine HCl (Cetirizine Hcl 10 Mg Tablet) 10 mg PO BID PRN PRN Reason: Allergic Symptoms Stop: 10/25/22 20:59 Last Admin: 09/29/22 01:22 Dose: 10 mg Clonazepam (Clonazepam 0.5 Mg Tab) 0.5 mg PO HS [facility] Stop: 10/20/22 20:59 Last Admin: 09/28/22 21:37 Dose: 0.5 mg Cyanocobalamin (Cyanocobalamin (B-12) 500 Mcg Tablet) 1,000 mcg PO DAILY [facility] Stop: 10/20/22 08:59 Last Admin: 09/28/22 10:28 Dose: 1,000 mcg Cyclobenzaprine HCl (Cyclobenzaprine Hcl 10 Mg Tab) 5 mg PO Q6H PRN PRN Reason: muscle spasm Stop: 10/20/22 06:58 Last Admin: 09/23/22 10:36 Dose: 5 mg Dextrose (Dextrose 50% 50 Ml Syringe) 25 - 50 ml IV UD PRN; Protocol PRN Reason: Hypoglycemia Protocol Stop: 10/20/22 06:58 Diazepam (Diazepam 2 Mg Tablet) 2 mg PO TID [facility] Stop: 10/20/22 08:59 Last Admin: 09/28/22 21:37 Dose: 2 mg Dicyclomine HCl (Dicyclomine Hcl 10 Mg Cap) 20 mg PO BIDM [facility] Stop: 10/20/22 07:59 Last Admin: 09/28/22 17:28 Dose: 20 mg Diphenhydramine HCl (Diphenhydramine Capsule 25 Mg Cap) 25 mg PO Q6H PRN PRN Reason: Itching Stop: 10/24/22 13:18 Last Admin: 09/29/22 01:22 Dose: 25 mg Divalproex Sodium (Divalproex Extended Release 500 Mg Tab) 2,000 mg PO QAM [facility] Stop: 10/20/22 08:59 Last Admin: 09/28/22 10:28 Dose: 2,000 mg Famotidine (Famotidine 40 Mg Tablet) 40 mg PO HS [facility] Stop: 10/20/22 20:59 Last Admin: 09/28/22 21:37 Dose: 40 mg Ferrous Sulfate (Ferrous Sulfate 325 Mg Tab) 325 mg PO BID [facility] Stop: 10/20/22 08:59 Last Admin: 09/28/22 22:11 Dose: 325 mg Fluticasone Furoate (Fluticasone Furoate 100mcg 14 Puffs/Inhaler) 1 puffs INH DAILY [facility] Stop: 10/20/22 08:59 Last Admin: 09/28/22 10:31 Dose: 1 puffs Furosemide (Furosemide 40 Mg Tab) 40 mg PO QDD [facility] Stop: 10/20/22 16:29 Last Admin: 09/28/22 17:28 Dose: 40 mg Glucagon (Glucagon For Inj 1 Mg Vial) 1 mg SQ UD PRN; Protocol PRN Reason: Hypoglycemia Protocol Stop: 10/20/22 06:58 Glucose (Glucose 10 Tab/Tube) 4 - 8 tab PO UD PRN; Protocol PRN Reason: Hypoglycemia Treatment Stop: 10/20/22 06:58 Glucose (Glucose 40% Gel 15 Gm Tube) 15 - 30 gm PO UD PRN; Protocol PRN Reason: Hypoglycemia Protocol Stop: 10/20/22 06:58 Hydrocortisone (Hydrocortisone 2.5% Cr 30 Gm Tube) 1 appln EXT BID PRN PRN Reason: rash Stop: 10/28/22 00:06 Last Admin: 09/28/22 00:39 Dose: 1 appln Promethazine HCl 6.25 mg/ (Sodium Chloride) 50.25 mls @ 201 mls/hr IV Q6H PRN PRN Reason: Nausea And Vomiting Stop: 10/23/22 18:34 Last Infusion: 09/28/22 00:46 Dose: Infused Daptomycin 4 mg/ Heparin Sodium (Porcine) 4,000 units/Lactated Ringer's 0.8 mls @ 38.4 mls/hr IV Q24H [facility]; Protocol Stop: 10/07/22 20:59 Last Admin: 09/28/22 22:00 Dose: 38.4 mls/hr Daptomycin 600 mg/ Syringe 12 mls @ 6 mls/min IV Q24H [facility]; Protocol Stop: 10/07/22 12:59 Aztreonam 2,000 mg/ Dextrose 110 mls @ 110 mls/hr IV Q8H [facility]; Protocol Stop: 10/08/22 17:59 Last Infusion: 09/29/22 03:52 Dose: Infused Insulin Aspart (Insulin Aspart Per Unit Charge) 0 units SC ACHS [facility] Stop: 10/25/22 03:59 Last Admin: 09/28/22 22:11 Dose: 29 units Insulin Glargine (Lantus Per Unit Charge) 70 units SC HS [facility] Stop: 10/27/22 20:59 Last Admin: 09/28/22 21:37 Dose: 70 units Insulin Human NPH (Insulin Human Nph) 35 units SC TODAY@0900 ONE Stop: 09/29/22 09:01 Lactobacillus Acidophilus (Advanced Probiotic 1250 Mg Capsule) 2 cap PO [place] Stop: 10/20/22 08:59 Last Admin: 09/28/22 10:27 Dose: 2 cap Levalbuterol HCl (Levalbuterol Hcl 0.63 Mg/3 Ml Neb) 0.63 mg INH Q6H PRN; Protocol PRN Reason: Shortness Of Breath Stop: 10/20/22 06:58 Levothyroxine Sodium (Levothyroxine Sodium 100 Mcg Tablet) 100 mcg PO DAILYBB [facility] Stop: 10/20/22 08:59 Last Admin: 09/29/22 06:06 Dose: 100 mcg Linaclotide (Linaclotide 145 Mcg Capsule) 290 mcg PO DAILYBB [facility] Stop: 10/20/22 08:59 Last Admin: 09/29/22 06:06 Dose: 290 mcg Loratadine (Loratadine 10 Mg Tab) 20 mg PO QAM [facility] Stop: 10/20/22 08:59 Last Admin: 09/25/22 10:14 Dose: 20 mg Loxapine Succinate (Loxapine Succinate) 1 each PO TID PRN PRN Reason: Anxiety Stop: 10/21/22 13:59 Last Admin: 09/29/22 06:06 Dose: 1 each Magnesium Oxide (Magnesium Oxide 400 Mg Tab) 400 mg PO QDL [facility] Stop: 10/20/22 11:29 Last Admin: 09/28/22 10:28 Dose: 400 mg Miscellaneous (Carbohydrates For Hypoglycemia ) 15 - 30 gm PO UD PRN PRN Reason: Hypoglycemia Protocol Stop: 10/20/22 06:58 Miscellaneous (Stop Order [Daptomycin/Heparin Antibiotic Lock]) 1 each N/A DAILY@2058 [facility] Stop: 10/25/22 20:58 Last Admin: 09/28/22 22:10 Dose: 1 each Miscellaneous Information (Pharmacy Glycemic Mgmt Consult) 1 each N/A UD PRN PRN Reason: Consult Stop: 10/24/22 22:34 Montelukast Sodium (Montelukast Sodium 10 Mg Tablet) 10 mg PO PM [facility] Stop: 10/20/22 20:59 Last Admin: 09/28/22 21:38 Dose: 10 mg Multivitamins (Multivitamin Tab) 1 tab PO QDL [facility] Stop: 10/20/22 11:29 Last Admin: 09/28/22 10:27 Dose: 1 tab Nitroglycerin (Nitroglycerin Sl 0.4 Mg/Tab Tab) 0.4 mg SL UD PRN PRN Reason: Chest Pain Stop: 10/20/22 06:58 Nystatin (Nystatin Cr 15 Gm Tube) 1 appln EXT BID PRN PRN Reason: Skin Irritation Stop: 10/20/22 06:58 Oxycodone HCl (Oxycodone Hcl Ir 5 Mg Tab (Immediate Release)) 5 mg PO Q8H PRN PRN Reason: Pain Stop: 10/04/22 19:00 Pantoprazole Sodium (Pantoprazole 40 Mg Tab) 40 mg PO BID [facility] Stop: 10/20/22 08:59 Last Admin: 09/28/22 21:38 Dose: 40 mg Polyethylene Glycol (Polyethylene (Miralax) 17 Gm Pack) 17 gm PO DAILY PRN PRN Reason: Constipation Stop: 10/20/22 06:58 Prednisone (Prednisone 20 Mg Tab) 20 mg PO DAILY [facility] Stop: 09/29/22 13:59 Last Admin: 09/28/22 10:29 Dose: 20 mg Sucralfate (Sucralfate 1 Gm Tab) 1 gm PO BID PRN PRN Reason: gastritis Stop: 10/20/22 06:58 Trazodone HCl (Trazodone Hcl 100 Mg Tab) 300 mg PO HS [facility] Stop: 10/20/22 20:59 Last Admin: 09/28/22 21:38 Dose: 300 mg Umeclidinium/Vilanterol (Umeclidinium/Vilanterol 62.5/25mcg 7 Puffs/Inhaler) 1 puffs INH QAM [facility] Stop: 10/20/22 08:59 Last Admin: 09/28/22 10:31 Dose: 1 puffs Venlafaxine HCl (Venlafaxine Hcl Xr 75 Mg Capxr) 75 mg PO QAM [facility] Stop: 10/20/22 08:59 Last Admin: 09/28/22 10:26 Dose: 75 mg Venlafaxine HCl (Venlafaxine Hcl Xr 150 Mg Capxr) 150 mg PO [place] Stop: 10/20/22 08:59 Last Admin: 09/28/22 10:29 Dose: 150 mg
--- NOTE | 2022-09-29 08:54 | Pharmacy Report ---
Pharmacy Glycemic Short Note 2 - Date of Service September 29, 2022 - Glycemic Short BSG Results (Last 24 hours): 09/28/22 09/28/22 09/28/22 11:47 16:45 20:28 POC Glucose 188 H 272 H 398 H* 09/28/22 09/29/22 09/29/22 20:30 07:36 07:37 POC Glucose 366 H* 350 H* 362 H* OUTPATIENT ANTIDIABETIC REGIMEN: * Discussed with perinatal educator, patient recently transitioned to Novolog insulin pump * basal 1.3 units/hr x 24 hours (31.2 units/day) * ICR: 5 * CF: 20 * Target of 140 mg/dL * TDD: ~55 units * A1c 7.4 06/2022 ASSESSMENT: 09/29/22: * Patient received total of 210 units of insulin yesterday, of which 70 units were basal and 26 units were NPH to help with covering steroids * Fasting BSG this AM elevated ~350s - discussed with RN and patient reports eating candy bars and popsicles overnight. RN reports patient has bag in room with snacks. RN discussed with patient the importance of not snacking throughout the day so that we can better manage blood sugars during hospital stay * Increased NPH this AM to 0.3 units/kg to help with steroid effects. Plan to give IV insulin bolus this morning since BSGs elevated. Will check K level prior to administration 09/28/22: * BSG's yesterday [phone] mg/dL. * Patient received 90 total units of basal insulin and 158 units of bolus insulin. * Morning NPH dose increased by 30% from 20 to 26 units today, given at time of prednisone 20mg administration.Final day of prednisone tomorrow AM. * Lunchtime BSG 188 mg/dL. Will maintain NovoLog 8-1.5 parameters given improvement of lunchtime BSG with increased NOH dose, and anticipated change in steroid regimen. * Fasting BSG of 155 mg/dL acceptable in regards to goal range. Will continue with previous HS Lantus dose of 70 units. 09/26/22 * Patient's BSGs yesterday were elevated- [phone] and overnight were 344 -190 mg/dL. * Patient received 169 units of insulin (60 units of basal and 109 units of bolus). She received an additional 29 units overnight. * Today's BSGs are 153-174 mg/dL. * Patient started on prednisone 20 mg daily @ 1400 today. * For Lantus, will increase to lantus 70 units daily- per previous records she requires around 70-80 units. For steroids, will add NPH 15 units (0.2 units/kg of adjusted body weight). * For Novolog will tighten CR slightly since steroids started. 09/25/22: * Pharmacy consult was discontinued on 09/22/22 when patient was transitioned to home insulin pump w/ help from CDE * Unfortunately, patient was unable to manage BSGs with current pump settings (BSG > 400 mg/dL), so decision was made to transition to SC basal/bolus last evening w/ pharmacy glycemic consult * Current insulin pump settings are certainly inadequate and will need to be adjusted prior to discharge w/ assistance from CDE * Will attempt to coordinate this early in the week * One dose of Solu-medrol 20 mg IV given around lunchtime 09/21/22: * BSGs trended down throughout the day yesterday, received 217 units of insulin * Fasting BSG of 150 mg/dL this morning * Inpatient insulin needs consistently far exceed reported outpatient doses * Patient reports desire to restart own insulin pump - since basal insulin has already been given this morning, will plan to restart insulin pump tomorrow morning. 09/20/22: * 37 year old admitted with UTI. Has history of drug resistant organisms, follows with ID outpatient and was referred to hospital for IV antibiotics. Type 2 diabetic managed on high amounts of insulin at home. Pharmacy consulted to help with glycemic management * Patient's BSGs in 300-400s this morning - was given IV insulin bolus in ER earlier this AM prior to consult. BSGs only trending down slightly. Patient takes 50 units of basal at home, unclear if missed dose last evening. Will give 50 units x 1 this AM. Per previous admissions, patient requiring larger amounts of basal insulin during infection. Will have scale for basal at HS * Started novolog based upon stress of outpatient dose. Contacted provider to order IV Kcl as K level low this AM. Held additional IV insulin until K repleted. PLAN FOR INPATIENT GLYCEMIC CONTROL: * Basal insulin * Lantus 70 units SQ HS * NPH 35 units SQ when prednisone 20mg administered in AM / steroids stopping after today's dose * Bolus insulin * NovoLog per scale ACHS or Q6hrs while NPO * Goal Range: Low 110 mg/dL - High 140 mg/dL * Correction Factor: 8 mg/dL/unit * Nutritional / Prandial insulin per carb ratio of 1 unit per 1.5 grams CHO consumed
[2022-09-29] MEDS: predniSONE 20 MG TAB PO SCH (08:59)
[2022-09-29] MEDS: PANTOprazole 40 MG TAB PO SCH ×2 (08:59→20:24)
[2022-09-29] MEDS: FERROUS SULFATE 325 MG TAB PO SCH ×2 (08:59→20:24)
[2022-09-29] MEDS: DIVALPROEX EXTENDED RELEASE 500 MG TAB PO SCH (08:59)
[2022-09-29] MEDS: VENLAFAXINE HCL XR 150 MG CAPXR PO SCH (08:59)
[2022-09-29] MEDS: ADVANCED PROBIOTIC 1250 MG CAPSULE PO SCH (08:59)
[2022-09-29] MEDS: CYANOCOBALAMIN (B-12) 500 MCG TABLET PO SCH (09:00)
[2022-09-29] MEDS: DICYCLOMINE HCL 10 MG CAP PO SCH ×2 (09:00→16:15)
[2022-09-29] MEDS: VENLAFAXINE HCL XR 75 MG CAPXR PO SCH (09:00)
[2022-09-29] MEDS ORDERED: INSULIN HUMAN NPH SC ONE (09:00)
[2022-09-29] MEDS: BREXPIPRAZOLE 4 MG PO SCH (09:01)
[2022-09-29] MEDS: UMECLIDINIUM/VILANTEROL 62.5/25MCG 7 PUFFS/INHALER INH SCH (09:01)
[2022-09-29] MEDS: FLUTICASONE FUROATE 100MCG 14 PUFFS/INHALER INH SCH (09:01)
[2022-09-29] MEDS: diazePAM 2 MG TABLET PO SCH ×3 (09:08→22:33)
[2022-09-29] MEDS: INSULIN ASPART PER UNIT CHARGE SC SCH ×4 (09:09→22:32)
[2022-09-29 09:55] LABS: Hemoglobin 12.2 g/dl (12.0-16.0); Mean Corpuscular Hemoglobin 29.8 pg (25.0-34.0); Mean Corpuscular Hgb Conc 31.3 g/dL (32.0-36.0); Mean Corpuscular Volume 95.4 fL (80.0-100.0); Mean Platelet Volume 10.3 fL (9.4-12.4); Platelet Count 285 K/uL (130-400); RDW Standard Deviation 65.6 fL (36.4-46.3); Red Blood Count 4.09 M/uL (4.20-5.40); White Blood Count 9.85 K/ul (4.8-10.8)
[2022-09-29 10:00] LABS: Anion Gap 7 (3-11); BUN Creatinine Ratio 40.5 (10-20); Blood Urea Nitrogen 17 mg/dl (6-23); Calcium 9.5 mg/dl (8.6-10.3); Carbon Dioxide 26 mmol/L (21-32); Chloride 102 mmol/L (98-107); Creatinine Clr Calc Pharmacy 219.8 ml/min; Est GFR (African American) > 150.0 ml/min; Est GFR (Non-African American) 132.8 ml/min; Glucose 266 mg/dl (70-99(Fasting)); Magnesium 2.1 mg/dl (1.7-2.4); Phosphorus 3.6 mg/dl (2.5-4.9); Potassium 3.3 mmol/L (3.5-5.1); Sodium 135 mmol/L (136-145)
[2022-09-29] MEDS ORDERED: POTASSIUM CHLORIDE CRTAB 20 MEQ TABCR PO ONE (10:15)
[2022-09-29] MEDS: MAGNESIUM OXIDE 400 MG TAB PO SCH (12:21)
[2022-09-29] MEDS: MULTIVITAMIN TAB PO SCH (12:22)
[2022-09-29] MEDS: DAPTOmycin 600 MG in SYRINGE 0 ML IV SCH (13:07)
[2022-09-29] MEDS: hydrOXYzine HCl 25 MG TAB PO PRN ×2 (14:41→18:23)
[2022-09-29] MEDS: FUROSEMIDE 40 MG TAB PO SCH (16:15)
--- NOTE | 2022-09-29 17:16 | Surgery Progress Note ---
Date of Service September 29, 2022 Assessment & Plan (1) MRSA bacteremia: Plan I long discussion with her as well as with the hospitalist about the access port. This is her third access port, and she is running out of access sites. She requires constant access for antibiotic therapy. She had 1 positive MRSA culture from the port on 09/20/2022. All subsequent blood cultures have been negative. She did not have fevers or chills. She does not have any signs of infection. Usually a port will be removed for MRSA infection, however as this is her third port, and she is running out of access sites, given that she seems to be clearing the infection with the antibiotics, I would like to hold off and redraw her cultures after she is off antibiotics. We will discussed with the infectious disease doctor tomorrow with the hospitalist. Admission and Anticipated Discharge Date Admission Date: September 20, 2022 Subjective Saw patient this afternoon. She denies any complaints currently. She denies fevers or chills. She denies pain at the port site. Physical Exam Physical Exam: A and O x3, NAD Port site with no erythema, induration, discharge Results & Data Vital Signs (Past 12 Hours) Vital Signs Temp Pulse Pulse Resp BP Pulse Ox O2 Del Method 09/29/22 16:46 101 H 09/29/22 15:28 36.9 C 96 H 16 118/68 93 Room Air 09/29/22 09:00 Room Air 09/29/22 11:54 37.1 C 98 H 16 123/77 98 Room Air 09/29/22 10:50 92 H 22 94 Room Air 09/29/22 10:42 37 C 92 H 22 110/75 97 Room Air 09/29/22 08:00 83 09/29/22 08:05 36.8 C 82 16 123/80 96 Room Air 09/29/22 07:35 80 20 96 Room Air
[2022-09-29] MEDS: traZODone HCL 100 MG TAB PO SCH (20:23)
[2022-09-29] MEDS: MONTELUKAST SODIUM 10 MG TABLET PO SCH (20:23)
[2022-09-29] MEDS: ATENOLOL 50 MG TABLET PO SCH (20:24)
[2022-09-29] MEDS: FAMOTIDINE 40 MG TABLET PO SCH (20:24)
[2022-09-29] MEDS ORDERED: LANTUS PER UNIT CHARGE SC ONE (22:30)
[2022-09-29] MEDS: CYCLOBENZAPRINE HCL 10 MG TAB PO PRN (22:33)
[2022-09-29] MEDS: clonazePAM 0.5 MG TAB PO SCH (22:33)
[2022-09-29] MEDS: ACETAMINOPHEN 325 MG TAB PO PRN (22:34)
[2022-09-29] MEDS: PROMETHAZINE HCL 6.25 MG in SODIUM CHLORIDE 0.9% 50 ML IV PRN (23:23)
[2022-09-30] MEDS: LACTATED RINGER S IV SCH (01:23)
[2022-09-30] MEDS: DAPTOMYCIN IV SCH (01:23)
[2022-09-30] MEDS: HEPARIN SODIUM IV SCH (01:23)
[2022-09-30] MEDS: AZTREONAM 2,000 MG in DEXTROSE 5% 100 ML IV SCH ×3 (02:18→18:43)
[2022-09-30] MEDS ORDERED: INSULIN ASPART PER UNIT CHARGE SC SCH ×2 (04:00)
[2022-09-30] MEDS: LEVOTHYROXINE SODIUM 100 MCG TABLET PO SCH (06:44)
[2022-09-30] MEDS: LINACLOTIDE 145 MCG CAPSULE PO SCH (06:44)
[2022-09-30] MEDS: ALBUTEROL HFA 8 GM INHALER INH SCH ×2 (07:12→19:21)
[2022-09-30] MEDS: INSULIN ASPART PER UNIT CHARGE SC SCH ×4 (08:59→21:25)
[2022-09-30] MEDS: diazePAM 2 MG TABLET PO SCH ×3 (09:08→21:10)
[2022-09-30] MEDS: PANTOprazole 40 MG TAB PO SCH ×2 (09:12→21:14)
[2022-09-30] MEDS: DICYCLOMINE HCL 10 MG CAP PO SCH ×2 (09:12→17:39)
[2022-09-30] MEDS: VENLAFAXINE HCL XR 75 MG CAPXR PO SCH (09:12)
[2022-09-30] MEDS: DIVALPROEX EXTENDED RELEASE 500 MG TAB PO SCH (09:12)
[2022-09-30] MEDS: VENLAFAXINE HCL XR 150 MG CAPXR PO SCH (09:12)
[2022-09-30] MEDS: FERROUS SULFATE 325 MG TAB PO SCH ×2 (09:12→21:17)
[2022-09-30] MEDS: ADVANCED PROBIOTIC 1250 MG CAPSULE PO SCH (09:12)
[2022-09-30] MEDS: BREXPIPRAZOLE 4 MG PO SCH (09:13)
[2022-09-30] MEDS: FLUTICASONE FUROATE 100MCG 14 PUFFS/INHALER INH SCH (09:13)
[2022-09-30] MEDS: CYANOCOBALAMIN (B-12) 500 MCG TABLET PO SCH (09:14)
[2022-09-30] MEDS: UMECLIDINIUM/VILANTEROL 62.5/25MCG 7 PUFFS/INHALER INH SCH (09:15)
[2022-09-30] MEDS: diphenhydrAMINE Capsule 25 MG CAP PO PRN ×2 (09:23→18:10)
--- NOTE | 2022-09-30 09:33 | Hospitalist Progress Note ---
Date of Service September 30, 2022 Assessment & Plan (1) UTI (urinary tract infection): Plan: Patient is a 37 yr female who was sent in from Infectious Disease because of urinary tract infection with Morganella. Complicated Urinary tract infection with Morganella MRSA Bacteremia: POA UTI likely due to urostomy MRSA likely colonizer off IV port -- Blood culture from 09/20: 06/06: Coagulase-negative staph, MRSA --Blood cultures from 09/24:06/08: Coagulase-negative staph -- Repeat blood cultures negative to date -- Urine culture from 09/17/2022 growing Morganella --CT ABD:Mild left hydroureteronephrosis extending to the ileal conduit without evidence for obstructing calculus seen. Mild urothelial thickening and cornel- ureteral stranding may reflect underlying infection. --ECHO: Technically limited study. Contrast injection of Definity was performed to improve for assessment of LV function. Left ventricle is normal in size. Normal left ventricle wall thickness. Left ventricle wall motion is normal. EF 60 to 65%. Valve structures are grossly normal. Technical limitations are insufficient for exclusion of vegetation. -- Continue Invanz for 2 weeks as recommended by ID>> changed to cefepime on 09/23/2022 (as patient growing Pseudomonas on vaginal swab) -> changed to aztreonam (09/28 pm) --Started on daptomycin 09/23/2022 Appreciate infectious disease input Received IV daptomycin lock therapy for the port Continue current antibiotics--duration to be determined Premedicate with Benadryl as needed if allergy symptoms persist Also started on low-dose prednisone Repeat blood cultures pending Discussed with infectious disease 09/27: Recommends port removal. Also recommends 14-day course of antibiotics with daptomycin, cefepime Consulted surgery for port removal - discussed w/ surgeon (Dr. Washington) 09/29 - hesitant about port removal at this time (as pt had port removed/ replaced before ) 09/28 - Discussed w/Dr. Barrett (ID) - plan for port removal -ok to replace port at the same time. Given mrsa bacteremia - not recommended to keep the port. Pt should then be on 2 more weeks of daptomycin after port removal (replacement). Pt having rash w/ cefepime despite benadryl - discussed as well w/Dr. Barrett - switched to Aztreonam 09/29- - discussed w/ surgeon (Dr. Washington) today 09/29 - hesitant about port removal at this time - (as pt had port removed/ replaced before ) -plan to re- discuss w/ ID 09/30 -discussed with infectious disease, and surgery, and decided to pursue antibiotic treatment, without port removal at this time. Plan to continue daptomycin 600 mg daily with lock-in therapy through October 19. Continue aztreonam 2 g q8hrs through October 06. Blood cultures to be checked 5-7 days after finishing treatment with Daptomycin. Right labial cellulitis-POA Vaginitis-POA Vaginal discharge S/P IUD H/O vaginal Melida Vulva culture growing Pseudomonas, MRSA Diflucan for 2 doses Appreciate [employer] input Continue antibiotics as above DM II HbA1c 7.9 Continue insulin per protocol Monitor blood glucose levels Appreciate glycemic pharmacy help Hypokalemia Replace and monitor Elevated lactic acid possible due to ongoing infection Improved with IV fluids Obstructive sleep apnea Obesity hypoventilation syndrome On BiPAP at night Hypertension on atenolol and Lasix Monitor Hypothyroidism on levothyroxine Hyperlipidemia Hold Lipitor while on daptomycin Chronic hypoxic hypercarbic respiratory failure Continue BiPAP, supplemental oxygen Bipolar disorder, depression Continue home medications. H/O spina bifida S/P ventriculoperitoneal shunt chronic migraines Continue home medications. Morbid obesity BMI 47 . H/O PE on Eliquis DVT Px on Eliquis. CODE STATUS Full code Admission and Anticipated Discharge Date Admission Date: September 20, 2022 Subjective Patient seen in follow up of UTI, mrsa bacteremia Laying in bed in NAD Pt denies any chest pain, dyspnea, dizziness, abd pain Discussed with Dr. Barrett (ID) again and w/ surgeon - given hx of port replacement before - decided to keep port and cont. w/ Abx therapy, recommendations updated Review of Systems Review of Systems: All systems reviewed & are unremarkable except as noted in Subjective Physical Exam Physical Exam: General Appearance:Morbidly Obese F in no apparent distress Head: normocephalic, Atraumatic Eyes: normal inspection, EOMI Neck: supple Respiratory/Chest: Normal breath sounds, CTA, No accessory muscle use Cardiovascular: S1, S2, No murmur Abdomen/GI: Soft, tender, + urostomy, colostomy Bowel sounds present : Labial swelling Extremities/Musculoskeletal:normal inspection, no edema, B/L BKA Neurologic/Psych:AAOX3, grossly no focal neurological deficits Skin: normal color, warm Results & Data Results & Data Vital Signs (Past 12 Hours) Vital Signs Temp Pulse Pulse Resp BP BP Pulse Ox 09/30/22 08:04 36.7 C 80 18 121/47 L 97 09/30/22 07:54 71 09/29/22 22:05 89 09/30/22 07:13 74 16 93 09/30/22 04:00 36.6 C 69 20 114/79 97 09/29/22 22:37 36.6 C 90 20 109/76 95 O2 Del Method 09/30/22 08:04 Room Air, BiPAP 09/30/22 07:54 09/29/22 22:05 09/30/22 07:13 Room Air 09/30/22 04:00 CPAP 09/29/22 22:37 Room Air Laboratory Results 09/30/22 09/30/22 09/30/22 Range/Units 07:59 07:49 04:58 WBC (4.8-10.8) K/ul RBC (4.20-5.40) M/uL Hgb (12.0-16.0) g/dl Hct (37.0-47.0) % MCV (80.0-100.0) fL MCH (25.0-34.0) pg MCHC (32.0-36.0) g/dL RDW Std Deviation (36.4-46.3) fL RDW Coeff of Neda (11.5-14.5) % Plt Count (130-400) K/uL MPV (9.4-12.4) fL Sodium (136-145) mmol/L Potassium (3.5-5.1) mmol/L Chloride (98-107) mmol/L Carbon Dioxide (21-32) mmol/L Anion Gap (3-11) BUN (6-23) mg/dl Creatinine (0.6-1.2) mg/dl Est Cr Clr Drug Dosing ml/min Est GFR ( Amer) ml/min Est GFR (Non-Af Amer) ml/min BUN/Creatinine Ratio (10-20) Glucose (70-99(Fasting)) mg/dl POC Glucose 109 H 91 (70-99) mg/dl Calcium (8.6-10.3) mg/dl Phosphorus (2.5-4.9) mg/dl Magnesium (1.7-2.4) mg/dl Total Creatine Kinase < 10 L (26-192) U/L 09/30/22 09/29/22 09/29/22 Range/Units 00:04 20:04 16:46 WBC (4.8-10.8) K/ul RBC (4.20-5.40) M/uL Hgb (12.0-16.0) g/dl Hct (37.0-47.0) % MCV (80.0-100.0) fL MCH (25.0-34.0) pg MCHC (32.0-36.0) g/dL RDW Std Deviation (36.4-46.3) fL RDW Coeff of Neda (11.5-14.5) % Plt Count (130-400) K/uL MPV (9.4-12.4) fL Sodium (136-145) mmol/L Potassium (3.5-5.1) mmol/L Chloride (98-107) mmol/L Carbon Dioxide (21-32) mmol/L Anion Gap (3-11) BUN (6-23) mg/dl Creatinine (0.6-1.2) mg/dl Est Cr Clr Drug Dosing ml/min Est GFR ( Amer) ml/min Est GFR (Non-Af Amer) ml/min BUN/Creatinine Ratio (10-20) Glucose (70-99(Fasting)) mg/dl POC Glucose 119 H 145 H 166 H (70-99) mg/dl Calcium (8.6-10.3) mg/dl Phosphorus (2.5-4.9) mg/dl Magnesium (1.7-2.4) mg/dl Total Creatine Kinase (26-192) U/L 09/29/22 09/29/22 09/29/22 Range/Units 11:29 09:19 09:19 WBC 9.85 (4.8-10.8) K/ul RBC 4.09 L (4.20-5.40) M/uL Hgb 12.2 (12.0-16.0) g/dl Hct 39.0 (37.0-47.0) % MCV 95.4 (80.0-100.0) fL MCH 29.8 (25.0-34.0) pg MCHC 31.3 L (32.0-36.0) g/dL RDW Std Deviation 65.6 H (36.4-46.3) fL RDW Coeff of Neda 19.0 H (11.5-14.5) % Plt Count 285 (130-400) K/uL MPV 10.3 (9.4-12.4) fL Sodium 135 L (136-145) mmol/L Potassium 3.3 L (3.5-5.1) mmol/L Chloride 102 (98-107) mmol/L Carbon Dioxide 26 (21-32) mmol/L Anion Gap 7 (3-11) BUN 17 (6-23) mg/dl Creatinine 0.42 L (0.6-1.2) mg/dl Est Cr Clr Drug Dosing 219.8 ml/min Est GFR ( Amer) > 150.0 ml/min Est GFR (Non-Af Amer) 132.8 ml/min BUN/Creatinine Ratio 40.5 H (10-20) Glucose 266 H (70-99(Fasting)) mg/dl POC Glucose 282 H (70-99) mg/dl Calcium 9.5 (8.6-10.3) mg/dl Phosphorus 3.6 (2.5-4.9) mg/dl Magnesium 2.1 (1.7-2.4) mg/dl Total Creatine Kinase (26-192) U/L Medications Administered Current Inpatient Medications Acetaminophen (Acetaminophen 325 Mg Tab) 650 mg PO Q4H PRN PRN Reason: Pain or Fever Stop: 10/20/22 06:58 Last Admin: 09/29/22 22:34 Dose: 650 mg Albuterol (Albuterol Hfa 8 Gm Inhaler) 2 puffs INH BIDR [facility] Stop: 10/20/22 18:59 Last Admin: 09/30/22 07:12 Dose: 2 puffs Albuterol (Albuterol Hfa 8 Gm Inhaler) 2 puffs INH Q6H PRN PRN Reason: Shortness Of Breath Or Wheezing Stop: 10/20/22 06:58 Last Admin: 09/20/22 11:18 Dose: 2 puffs Apixaban (Apixaban 5 Mg Tablet) 5 mg PO AMHS [facility] Stop: 10/20/22 08:59 Last Admin: 09/28/22 21:36 Dose: 5 mg Apixaban (Apixaban 5 Mg Tablet) 5 mg PO NOW ONE Stop: 09/30/22 09:46 Atenolol (Atenolol 50 Mg Tablet) 100 mg PO HS [facility] Stop: 10/20/22 20:59 Last Admin: 09/29/22 20:24 Dose: 100 mg Atorvastatin Calcium (Atorvastatin 40 Mg Tab) 40 mg PO QDD [facility] Stop: 10/20/22 16:29 Last Admin: 09/22/22 17:10 Dose: 40 mg Brexpiprazole (Brexpiprazole 4 Mg Tab) 4 mg PO DAILY [facility] Stop: 10/22/22 08:59 Last Admin: 09/29/22 09:01 Dose: 4 mg Cetirizine HCl (Cetirizine Hcl 10 Mg Tablet) 10 mg PO BID PRN PRN Reason: Allergic Symptoms Stop: 10/25/22 20:59 Last Admin: 09/29/22 01:22 Dose: 10 mg Clonazepam (Clonazepam 0.5 Mg Tab) 0.5 mg PO HS [facility] Stop: 10/20/22 20:59 Last Admin: 09/29/22 22:33 Dose: 0.5 mg Cyanocobalamin (Cyanocobalamin (B-12) 500 Mcg Tablet) 1,000 mcg PO DAILY [facility] Stop: 10/20/22 08:59 Last Admin: 09/29/22 09:00 Dose: 1,000 mcg Cyclobenzaprine HCl (Cyclobenzaprine Hcl 10 Mg Tab) 5 mg PO Q6H PRN PRN Reason: muscle spasm Stop: 10/20/22 06:58 Last Admin: 09/29/22 22:33 Dose: 5 mg Dextrose (Dextrose 50% 50 Ml Syringe) 25 - 50 ml IV UD PRN; Protocol PRN Reason: Hypoglycemia Protocol Stop: 10/20/22 06:58 Diazepam (Diazepam 2 Mg Tablet) 2 mg PO TID [facility] Stop: 10/20/22 08:59 Last Admin: 09/29/22 22:33 Dose: 2 mg Dicyclomine HCl (Dicyclomine Hcl 10 Mg Cap) 20 mg PO BIDM [facility] Stop: 10/20/22 07:59 Last Admin: 09/29/22 16:15 Dose: 20 mg Diphenhydramine HCl (Diphenhydramine Capsule 25 Mg Cap) 25 mg PO Q6H PRN PRN Reason: Itching Stop: 10/24/22 13:18 Last Admin: 09/29/22 18:46 Dose: 25 mg Divalproex Sodium (Divalproex Extended Release 500 Mg Tab) 2,000 mg PO QAM [facility] Stop: 10/20/22 08:59 Last Admin: 09/29/22 08:59 Dose: 2,000 mg Famotidine (Famotidine 40 Mg Tablet) 40 mg PO HS [facility] Stop: 10/20/22 20:59 Last Admin: 09/29/22 20:24 Dose: 40 mg Ferrous Sulfate (Ferrous Sulfate 325 Mg Tab) 325 mg PO BID [facility] Stop: 10/20/22 08:59 Last Admin: 09/29/22 20:24 Dose: 325 mg Fluticasone Furoate (Fluticasone Furoate 100mcg 14 Puffs/Inhaler) 1 puffs INH DAILY [facility] Stop: 10/20/22 08:59 Last Admin: 09/29/22 09:01 Dose: 1 puffs Furosemide (Furosemide 40 Mg Tab) 40 mg PO QDD [facility] Stop: 10/20/22 16:29 Last Admin: 09/29/22 16:15 Dose: 40 mg Glucagon (Glucagon For Inj 1 Mg Vial) 1 mg SQ UD PRN; Protocol PRN Reason: Hypoglycemia Protocol Stop: 10/20/22 06:58 Glucose (Glucose 10 Tab/Tube) 4 - 8 tab PO UD PRN; Protocol PRN Reason: Hypoglycemia Treatment Stop: 10/20/22 06:58 Glucose (Glucose 40% Gel 15 Gm Tube) 15 - 30 gm PO UD PRN; Protocol PRN Reason: Hypoglycemia Protocol Stop: 10/20/22 06:58 Hydrocortisone (Hydrocortisone 2.5% Cr 30 Gm Tube) 1 appln EXT BID PRN PRN Reason: rash Stop: 10/28/22 00:06 Last Admin: 09/28/22 00:39 Dose: 1 appln Hydroxyzine HCl (Hydroxyzine Hcl 25 Mg Tab) 25 mg PO Q6H PRN PRN Reason: Anxiety Stop: 10/29/22 13:09 Last Admin: 09/29/22 18:23 Dose: 25 mg Promethazine HCl 6.25 mg/ (Sodium Chloride) 50.25 mls @ 201 mls/hr IV Q6H PRN PRN Reason: Nausea And Vomiting Stop: 10/23/22 18:34 Last Infusion: 09/30/22 02:08 Dose: Infused Daptomycin 4 mg/ Heparin Sodium (Porcine) 4,000 units/Lactated Ringer's 0.8 mls @ 38.4 mls/hr IV Q24H [facility]; Protocol Stop: 10/07/22 20:59 Last Admin: 09/30/22 01:23 Dose: 38.4 mls/hr Daptomycin 600 mg/ Syringe 12 mls @ 6 mls/min IV Q24H [facility]; Protocol Stop: 10/07/22 12:59 Last Admin: 09/29/22 13:07 Dose: 6 mls/min Aztreonam 2,000 mg/ Dextrose 110 mls @ 55 mls/hr IV Q8H [facility]; Protocol Stop: 10/08/22 17:59 Last Infusion: 09/30/22 04:22 Dose: Infused Insulin Aspart (Insulin Aspart Per Unit Charge) 0 units SC ACHS [facility] Stop: 10/25/22 03:59 Last Admin: 09/30/22 08:59 Dose: 16 units Insulin Glargine (Lantus Per Unit Charge) 70 units SC HS [facility] Stop: 10/27/22 20:59 Last Admin: 09/28/22 21:37 Dose: 70 units Lactobacillus Acidophilus (Advanced Probiotic 1250 Mg Capsule) 2 cap PO QAM [facility] Stop: 10/20/22 08:59 Last Admin: 09/29/22 08:59 Dose: 2 cap Levalbuterol HCl (Levalbuterol Hcl 0.63 Mg/3 Ml Neb) 0.63 mg INH Q6H PRN; Protocol PRN Reason: Shortness Of Breath Stop: 10/20/22 06:58 Last Admin: 09/29/22 10:49 Dose: 0.63 mg Levothyroxine Sodium (Levothyroxine Sodium 100 Mcg Tablet) 100 mcg PO DAILYBB [facility] Stop: 10/20/22 08:59 Last Admin: 09/30/22 06:44 Dose: 100 mcg Linaclotide (Linaclotide 145 Mcg Capsule) 290 mcg PO DAILYBB [facility] Stop: 10/20/22 08:59 Last Admin: 09/30/22 06:44 Dose: 290 mcg Loratadine (Loratadine 10 Mg Tab) 20 mg PO QAM [facility] Stop: 10/20/22 08:59 Last Admin: 09/25/22 10:14 Dose: 20 mg Loxapine Succinate (Loxapine Succinate) 1 each PO TID PRN PRN Reason: Anxiety Stop: 10/21/22 13:59 Last Admin: 09/29/22 06:06 Dose: 1 each Magnesium Oxide (Magnesium Oxide 400 Mg Tab) 400 mg PO QDL [facility] Stop: 10/20/22 11:29 Last Admin: 09/29/22 12:21 Dose: 400 mg Miscellaneous (Carbohydrates For Hypoglycemia ) 15 - 30 gm PO UD PRN PRN Reason: Hypoglycemia Protocol Stop: 10/20/22 06:58 Miscellaneous (Stop Order [Daptomycin/Heparin Antibiotic Lock]) 1 each N/A DAILY@2058 [facility] Stop: 10/25/22 20:58 Last Admin: 09/28/22 22:10 Dose: 1 each Miscellaneous Information (Pharmacy Glycemic Mgmt Consult) 1 each N/A UD PRN PRN Reason: Consult Stop: 10/24/22 22:34 Montelukast Sodium (Montelukast Sodium 10 Mg Tablet) 10 mg PO PM [facility] Stop: 10/20/22 20:59 Last Admin: 09/29/22 20:23 Dose: 10 mg Multivitamins (Multivitamin Tab) 1 tab PO QDL [facility] Stop: 10/20/22 11:29 Last Admin: 09/29/22 12:22 Dose: 1 tab Nitroglycerin (Nitroglycerin Sl 0.4 Mg/Tab Tab) 0.4 mg SL UD PRN PRN Reason: Chest Pain Stop: 10/20/22 06:58 Nystatin (Nystatin Cr 15 Gm Tube) 1 appln EXT BID PRN PRN Reason: Skin Irritation Stop: 10/20/22 06:58 Oxycodone HCl (Oxycodone Hcl Ir 5 Mg Tab (Immediate Release)) 5 mg PO Q8H PRN PRN Reason: Pain Stop: 10/04/22 19:00 Pantoprazole Sodium (Pantoprazole 40 Mg Tab) 40 mg PO BID [facility] Stop: 10/20/22 08:59 Last Admin: 09/29/22 20:24 Dose: 40 mg Polyethylene Glycol (Polyethylene (Miralax) 17 Gm Pack) 17 gm PO DAILY PRN PRN Reason: Constipation Stop: 10/20/22 06:58 Sucralfate (Sucralfate 1 Gm Tab) 1 gm PO BID PRN PRN Reason: gastritis Stop: 10/20/22 06:58 Trazodone HCl (Trazodone Hcl 100 Mg Tab) 300 mg PO HS [facility] Stop: 10/20/22 20:59 Last Admin: 09/29/22 20:23 Dose: 300 mg Umeclidinium/Vilanterol (Umeclidinium/Vilanterol 62.5/25mcg 7 Puffs/Inhaler) 1 puffs INH QAM [facility] Stop: 10/20/22 08:59 Last Admin: 09/29/22 09:01 Dose: 1 puffs Venlafaxine HCl (Venlafaxine Hcl Xr 75 Mg Capxr) 75 mg PO QAM [facility] Stop: 10/20/22 08:59 Last Admin: 09/29/22 09:00 Dose: 75 mg Venlafaxine HCl (Venlafaxine Hcl Xr 150 Mg Capxr) [facility] Stop: 10/20/22 08:59 Last Admin: 09/29/22 08:59 Dose: 150 mg
[2022-09-30] MEDS ORDERED: APIXABAN 5 MG TABLET PO ONE (09:45)
--- NOTE | 2022-09-30 11:48 | Surgery Progress Note ---
Date of Service September 30, 2022 Assessment & Plan (1) MRSA bacteremia: Plan I had a long discussion with her yesterday as well as with the hospitalist about the access port. I spoke with the infectious disease physician by phone today. This is her third access port, and she is running out of access sites. She requires constant access for antibiotic therapy. She had 1 positive MRSA culture from the port on 09/20/2022. All subsequent blood cultures have been negative. She did not have fevers or chills. She does not have any signs of infection. Usually a port will be removed for MRSA infection, however as this is her third port, and she is running out of access sites, given that she seems to be clearing the infection with the antibiotics, I would like to hold off and redraw her cultures after she is off antibiotics. After discussion with infectious disease, the plan will be for salvage therapy. They will prolong the antibiotic course and order surveillance cultures following discontinuation of antibiotics. We will sign off for now. Please call with any questions or concerns. Admission and Anticipated Discharge Date Admission Date: September 20, 2022 Subjective No change overnight. Physical Exam Physical Exam: A and O x3, NAD Port site with no erythema, induration, discharge Results & Data Vital Signs (Past 12 Hours) Vital Signs Temp Pulse Pulse Resp BP BP Pulse Ox 09/30/22 08:04 36.7 C 80 18 121/47 L 97 09/30/22 07:54 71 09/30/22 07:13 74 16 93 09/30/22 04:00 36.6 C 69 20 114/79 97 O2 Del Method 09/30/22 08:04 Room Air, BiPAP 09/30/22 07:54 09/30/22 07:13 Room Air 09/30/22 04:00 CPAP
[2022-09-30] MEDS: MULTIVITAMIN TAB PO SCH (12:32)
[2022-09-30] MEDS: MAGNESIUM OXIDE 400 MG TAB PO SCH (12:32)
[2022-09-30] MEDS: DAPTOmycin 600 MG in SYRINGE 0 ML IV SCH (12:34)
--- NOTE | 2022-09-30 15:16 | Pharmacy Report ---
Pharmacy Glycemic Short Note 2 - Date of Service September 30, 2022 - Glycemic Short BSG Results (Last 24 hours): 09/29/22 09/29/22 09/30/22 16:46 20:04 00:04 POC Glucose 166 H 145 H 119 H 09/30/22 09/30/22 09/30/22 04:58 07:49 11:45 POC Glucose 91 109 H 138 H OUTPATIENT ANTIDIABETIC REGIMEN: * Discussed with armed security officer, patient recently transitioned to Novolog insulin pump * basal 1.3 units/hr x 24 hours (31.2 units/day) * ICR: 5 * CF: 20 * Target of 140 mg/dL * TDD: ~55 units * A1c 7.4 06/2022 ASSESSMENT: 09/30/22: * Prednisone 20mg DC'ed, NPH not given today accordingly. * NovoLog parameters loosened to 10-3; lunchtime BSG within range at 138 mg/dL. * Fasting BSG today somewhat low at 109 mg/dL. May be attributed to the fact that patient may have been snacking previous nights and did not last night. HS Lantus put on a scale to administer either 35 or 45 units. 09/29/22: * Patient received total of 210 units of insulin yesterday, of which 70 units were basal and 26 units were NPH to help with covering steroids * Fasting BSG this AM elevated ~350s - discussed with RN and patient reports eating candy bars and popsicles overnight. RN reports patient has bag in room with snacks. RN discussed with patient the importance of not snacking throughout the day so that we can better manage blood sugars during hospital stay * Increased NPH this AM to 0.3 units/kg to help with steroid effects. Plan to give IV insulin bolus this morning since BSGs elevated. Will check K level prior to administration 09/28/22: * BSG's yesterday [phone] mg/dL. * Patient received 90 total units of basal insulin and 158 units of bolus insulin. * Morning NPH dose increased by 30% from 20 to 26 units today, given at time of prednisone 20mg administration.Final day of prednisone tomorrow AM. * Lunchtime BSG 188 mg/dL. Will maintain NovoLog 8-1.5 parameters given improvement of lunchtime BSG with increased NOH dose, and anticipated change in steroid regimen. * Fasting BSG of 155 mg/dL acceptable in regards to goal range. Will continue with previous HS Lantus dose of 70 units. 09/26/22 * Patient's BSGs yesterday were elevated- [phone] and overnight were 344 -190 mg/dL. * Patient received 169 units of insulin (60 units of basal and 109 units of bolus). She received an additional 29 units overnight. * Today's BSGs are 153-174 mg/dL. * Patient started on prednisone 20 mg daily @ 1400 today. * For Lantus, will increase to lantus 70 units daily- per previous records she requires around 70-80 units. For steroids, will add NPH 15 units (0.2 units/kg of adjusted body weight). * For Novolog will tighten CR slightly since steroids started. 09/25/22: * Pharmacy consult was discontinued on 09/22/22 when patient was transitioned to home insulin pump w/ help from CDE * Unfortunately, patient was unable to manage BSGs with current pump settings (BSG > 400 mg/dL), so decision was made to transition to SC basal/bolus last evening w/ pharmacy glycemic consult * Current insulin pump settings are certainly inadequate and will need to be adjusted prior to discharge w/ assistance from CDE * Will attempt to coordinate this early in the week * One dose of Solu-medrol 20 mg IV given around lunchtime 09/21/22: * BSGs trended down throughout the day yesterday, received 217 units of insulin * Fasting BSG of 150 mg/dL this morning * Inpatient insulin needs consistently far exceed reported outpatient doses * Patient reports desire to restart own insulin pump - since basal insulin has already been given this morning, will plan to restart insulin pump tomorrow morning. 09/20/22: * 37 year old admitted with UTI. Has history of drug resistant organisms, follows with ID outpatient and was referred to hospital for IV antibiotics. Type 2 diabetic managed on high amounts of insulin at home. Pharmacy consulted to help with glycemic management * Patient's BSGs in 300-400s this morning - was given IV insulin bolus in ER earlier this AM prior to consult. BSGs only trending down slightly. Patient takes 50 units of basal at home, unclear if missed dose last evening. Will give 50 units x 1 this AM. Per previous admissions, patient requiring larger amounts of basal insulin during infection. Will have scale for basal at HS * Started novolog based upon stress of outpatient dose. Contacted provider to order IV Kcl as K level low this AM. Held additional IV insulin until K repleted. PLAN FOR INPATIENT GLYCEMIC CONTROL: * Basal insulin * Lantus 35-45 units SQ HS * Bolus insulin * NovoLog per scale ACHS or Q6hrs while NPO * Goal Range: Low 110 mg/dL - High 140 mg/dL * Correction Factor: 10 mg/dL/unit * Nutritional / Prandial insulin per carb ratio of 1 unit per 3 grams CHO consumed
[2022-09-30] MEDS: FUROSEMIDE 40 MG TAB PO SCH (17:39)
[2022-09-30] MEDS: clonazePAM 0.5 MG TAB PO SCH (21:10)
[2022-09-30] MEDS: CYCLOBENZAPRINE HCL 10 MG TAB PO PRN (21:10)
[2022-09-30] MEDS: ACETAMINOPHEN 325 MG TAB PO PRN (21:11)
[2022-09-30] MEDS: APIXABAN 5 MG TABLET PO SCH (21:15)
[2022-09-30] MEDS: ATENOLOL 50 MG TABLET PO SCH (21:15)
[2022-09-30] MEDS: FAMOTIDINE 40 MG TABLET PO SCH (21:16)
[2022-09-30] MEDS: MONTELUKAST SODIUM 10 MG TABLET PO SCH (21:16)
[2022-09-30] MEDS: traZODone HCL 100 MG TAB PO SCH (21:16)
[2022-09-30] MEDS: LANTUS PER UNIT CHARGE SC SCH (21:26)
[2022-10-01] MEDS: [UNRECOGNIZED DRUG - REMARK] SCH ×2 (00:11→23:16)
[2022-10-01] MEDS: DAPTOMYCIN IV SCH ×2 (00:14→23:17)
[2022-10-01] MEDS: HEPARIN SODIUM IV SCH ×2 (00:14→23:17)
[2022-10-01] MEDS: LACTATED RINGER S IV SCH ×2 (00:14→23:17)
[2022-10-01] MEDS: AZTREONAM 2,000 MG in DEXTROSE 5% 100 ML IV SCH ×3 (02:34→17:07)
[2022-10-01] MEDS: LINACLOTIDE 145 MCG CAPSULE PO SCH (05:46)
[2022-10-01] MEDS: LEVOTHYROXINE SODIUM 100 MCG TABLET PO SCH (05:46)
[2022-10-01] MEDS: ALBUTEROL HFA 8 GM INHALER INH SCH ×2 (07:03→18:57)
--- NOTE | 2022-10-01 09:16 | Hospitalist Progress Note ---
Date of Service October 01, 2022 Assessment & Plan (1) UTI (urinary tract infection): Plan: Patient is a 37 yr female who was sent in from Infectious Disease because of urinary tract infection with Morganella. Complicated Urinary tract infection with Morganella MRSA Bacteremia: POA UTI likely due to urostomy MRSA likely colonizer off IV port -- Blood culture from 09/20: 06/06: Coagulase-negative staph, MRSA --Blood cultures from 09/24:06/08: Coagulase-negative staph -- Repeat blood cultures negative to date -- Urine culture from 09/17/2022 growing Morganella --CT ABD:Mild left hydroureteronephrosis extending to the ileal conduit without evidence for obstructing calculus seen. Mild urothelial thickening and cornel- ureteral stranding may reflect underlying infection. --ECHO: Technically limited study. Contrast injection of Definity was performed to improve for assessment of LV function. Left ventricle is normal in size. Normal left ventricle wall thickness. Left ventricle wall motion is normal. EF 60 to 65%. Valve structures are grossly normal. Technical limitations are insufficient for exclusion of vegetation. -- Continue Invanz for 2 weeks as recommended by ID>> changed to cefepime on 09/23/2022 (as patient growing Pseudomonas on vaginal swab) -> changed to aztreonam (09/28 pm) --Started on daptomycin 09/23/2022 Appreciate infectious disease input Received IV daptomycin lock therapy for the port Continue current antibiotics--duration to be determined Premedicate with Benadryl as needed if allergy symptoms persist Also started on low-dose prednisone Repeat blood cultures pending Discussed with infectious disease 09/27: Recommends port removal. Also recommends 14-day course of antibiotics with daptomycin, cefepime Consulted surgery for port removal - discussed w/ surgeon (Dr. Washington) 09/29 - hesitant about port removal at this time (as pt had port removed/ replaced before ) 09/28 - Discussed w/Dr. Barrett (ID) - plan for port removal -ok to replace port at the same time. Given mrsa bacteremia - not recommended to keep the port. Pt should then be on 2 more weeks of daptomycin after port removal (replacement). Pt having rash w/ cefepime despite benadryl - discussed as well w/Dr. Barrett - switched to Aztreonam 09/29- - discussed w/ surgeon (Dr. Washington) today 09/29 - hesitant about port removal at this time - (as pt had port removed/ replaced before ) -plan to re- discuss w/ ID 09/30 -discussed with infectious disease, and surgery, and decided to pursue antibiotic treatment, without port removal at this time. Plan to continue daptomycin 600 mg daily with lock-in therapy through October 19. Continue aztreonam 2 g q8hrs through October 06. Blood cultures to be checked 5-7 days after finishing treatment with Daptomycin. 10/01 US guided line placed. CM involved - poss. DC w/HH Right labial cellulitis-POA Vaginitis-POA Vaginal discharge S/P IUD H/O vaginal Melida Vulva culture growing Pseudomonas, MRSA Diflucan for 2 doses Appreciate SENIOR SYSTEMS ADMINISTRATOR input Continue antibiotics as above DM II HbA1c 7.9 Continue insulin per protocol Monitor blood glucose levels Appreciate glycemic pharmacy help Hypokalemia Replace and monitor Elevated lactic acid possible due to ongoing infection Improved with IV fluids Obstructive sleep apnea Obesity hypoventilation syndrome On BiPAP at night Hypertension on atenolol and Lasix Monitor Hypothyroidism on levothyroxine Hyperlipidemia Hold Lipitor while on daptomycin Chronic hypoxic hypercarbic respiratory failure Continue BiPAP, supplemental oxygen Bipolar disorder, depression Continue home medications. H/O spina bifida S/P ventriculoperitoneal shunt chronic migraines Continue home medications. Morbid obesity BMI 47 . H/O PE on Eliquis DVT Px on Eliquis. CODE STATUS Full code Admission and Anticipated Discharge Date Admission Date: September 20, 2022 Subjective Patient seen in follow up of UTI, mrsa bacteremia Laying in bed in NAD Pt denies any chest pain, dyspnea, dizziness, abd pain Yesterday discussed with Dr. Barrett (ID) again and w/ surgeon - given hx of port replacement before - decided to keep port and cont. w/ Abx therapy, recommendations updated US guided line placed yesterday Review of Systems Review of Systems: All systems reviewed & are unremarkable except as noted in Subjective Physical Exam Physical Exam: General Appearance:Morbidly Obese F in no apparent distress Head: normocephalic, Atraumatic Eyes: normal inspection, EOMI Neck: supple Respiratory/Chest: Normal breath sounds, CTA, No accessory muscle use Cardiovascular: S1, S2, No murmur Abdomen/GI: Soft, tender, + urostomy, colostomy Bowel sounds present : Labial swelling Extremities/Musculoskeletal:normal inspection, no edema, B/L BKA Neurologic/Psych:AAOX3, grossly no focal neurological deficits Skin: normal color, warm Results & Data Results & Data Vital Signs (Past 12 Hours) Vital Signs Temp Pulse Pulse Resp BP Pulse Ox O2 Del Method 10/01/22 07:47 71 10/01/22 07:04 76 18 97 Room Air 09/30/22 22:30 87 10/01/22 03:00 36.7 C 71 18 95/57 L 94 CPAP 09/30/22 22:00 37 C 90 20 112/69 92 Room Air Laboratory Results 10/01/22 10/01/22 10/01/22 Range/Units 11:18 08:20 07:46 Sodium 140 (136-145) mmol/L Potassium 3.4 L (3.5-5.1) mmol/L Chloride 104 (98-107) mmol/L Carbon Dioxide 26 (21-32) mmol/L Anion Gap 10 (3-11) BUN 27 H (6-23) mg/dl Creatinine 0.47 L (0.6-1.2) mg/dl Est Cr Clr Drug Dosing 200.2 ml/min Est GFR ( Amer) 148.3 ml/min Est GFR (Non-Af Amer) 128.0 ml/min BUN/Creatinine Ratio 57.4 H (10-20) Glucose 134 H (70-99(Fasting)) mg/dl POC Glucose 200 H 166 H (70-99) mg/dl Calcium 9.5 (8.6-10.3) mg/dl Phosphorus 5.0 H D (2.5-4.9) mg/dl Magnesium 2.1 (1.7-2.4) mg/dl 09/30/22 09/30/22 Range/Units 20:04 16:41 Sodium (136-145) mmol/L Potassium (3.5-5.1) mmol/L Chloride (98-107) mmol/L Carbon Dioxide (21-32) mmol/L Anion Gap (3-11) BUN (6-23) mg/dl Creatinine (0.6-1.2) mg/dl Est Cr Clr Drug Dosing ml/min Est GFR ( Amer) ml/min Est GFR (Non-Af Amer) ml/min BUN/Creatinine Ratio (10-20) Glucose (70-99(Fasting)) mg/dl POC Glucose 141 H 125 H (70-99) mg/dl Calcium (8.6-10.3) mg/dl Phosphorus (2.5-4.9) mg/dl Magnesium (1.7-2.4) mg/dl Medications Administered Current Inpatient Medications Acetaminophen (Acetaminophen 325 Mg Tab) 650 mg PO Q4H PRN PRN Reason: Pain or Fever Stop: 10/20/22 06:58 Last Admin: 09/30/22 21:11 Dose: 650 mg Albuterol (Albuterol Hfa 8 Gm Inhaler) 2 puffs INH BIDR [facility] Stop: 10/20/22 18:59 Last Admin: 10/01/22 07:03 Dose: 2 puffs Albuterol (Albuterol Hfa 8 Gm Inhaler) 2 puffs INH Q6H PRN PRN Reason: Shortness Of Breath Or Wheezing Stop: 10/20/22 06:58 Last Admin: 09/20/22 11:18 Dose: 2 puffs Apixaban (Apixaban 5 Mg Tablet) 5 mg PO AMHS [facility] Stop: 10/20/22 08:59 Last Admin: 10/01/22 09:54 Dose: 5 mg Atenolol (Atenolol 50 Mg Tablet) 100 mg PO HS [facility] Stop: 10/20/22 20:59 Last Admin: 09/30/22 21:15 Dose: 100 mg Atorvastatin Calcium (Atorvastatin 40 Mg Tab) 40 mg PO QDD [facility] Stop: 10/20/22 16:29 Last Admin: 09/22/22 17:10 Dose: 40 mg Brexpiprazole (Brexpiprazole 4 Mg Tab) 4 mg PO DAILY [facility] Stop: 10/22/22 08:59 Last Admin: 10/01/22 09:57 Dose: 4 mg Cetirizine HCl (Cetirizine Hcl 10 Mg Tablet) 10 mg PO BID PRN PRN Reason: Allergic Symptoms Stop: 10/25/22 20:59 Last Admin: 09/29/22 01:22 Dose: 10 mg Clonazepam (Clonazepam 0.5 Mg Tab) 0.5 mg PO HS [facility] Stop: 10/20/22 20:59 Last Admin: 09/30/22 21:10 Dose: 0.5 mg Cyanocobalamin (Cyanocobalamin (B-12) 500 Mcg Tablet) 1,000 mcg PO DAILY [facility] Stop: 10/20/22 08:59 Last Admin: 10/01/22 09:57 Dose: 1,000 mcg Cyclobenzaprine HCl (Cyclobenzaprine Hcl 10 Mg Tab) 5 mg PO Q6H PRN PRN Reason: muscle spasm Stop: 10/20/22 06:58 Last Admin: 09/30/22 21:10 Dose: 5 mg Dextrose (Dextrose 50% 50 Ml Syringe) 25 - 50 ml IV UD PRN; Protocol PRN Reason: Hypoglycemia Protocol Stop: 10/20/22 06:58 Diazepam (Diazepam 2 Mg Tablet) 2 mg PO TID [facility] Stop: 10/20/22 08:59 Last Admin: 10/01/22 10:41 Dose: 2 mg Dicyclomine HCl (Dicyclomine Hcl 10 Mg Cap) 20 mg PO BIDM [facility] Stop: 10/20/22 07:59 Last Admin: 10/01/22 09:52 Dose: 20 mg Diphenhydramine HCl (Diphenhydramine Capsule 25 Mg Cap) 25 mg PO Q6H PRN PRN Reason: Itching Stop: 10/24/22 13:18 Last Admin: 09/30/22 18:10 Dose: 25 mg Divalproex Sodium (Divalproex Extended Release 500 Mg Tab) 2,000 mg PO QAM [facility] Stop: 10/20/22 08:59 Last Admin: 10/01/22 10:02 Dose: 2,000 mg Famotidine (Famotidine 40 Mg Tablet) 40 mg PO HS [facility] Stop: 10/20/22 20:59 Last Admin: 09/30/22 21:16 Dose: 40 mg Ferrous Sulfate (Ferrous Sulfate 325 Mg Tab) 325 mg PO BID [facility] Stop: 10/20/22 08:59 Last Admin: 10/01/22 10:04 Dose: 325 mg Fluticasone Furoate (Fluticasone Furoate 100mcg 14 Puffs/Inhaler) 1 puffs INH DAILY [facility] Stop: 10/20/22 08:59 Last Admin: 10/01/22 10:08 Dose: 14 puffs Furosemide (Furosemide 40 Mg Tab) 40 mg PO QDD [facility] Stop: 10/20/22 16:29 Last Admin: 09/30/22 17:39 Dose: 40 mg Glucagon (Glucagon For Inj 1 Mg Vial) 1 mg SQ UD PRN; Protocol PRN Reason: Hypoglycemia Protocol Stop: 10/20/22 06:58 Glucose (Glucose 10 Tab/Tube) 4 - 8 tab PO UD PRN; Protocol PRN Reason: Hypoglycemia Treatment Stop: 10/20/22 06:58 Glucose (Glucose 40% Gel 15 Gm Tube) 15 - 30 gm PO UD PRN; Protocol PRN Reason: Hypoglycemia Protocol Stop: 10/20/22 06:58 Hydrocortisone (Hydrocortisone 2.5% Cr 30 Gm Tube) 1 appln EXT BID PRN PRN Reason: rash Stop: 10/28/22 00:06 Last Admin: 09/28/22 00:39 Dose: 1 appln Hydroxyzine HCl (Hydroxyzine Hcl 25 Mg Tab) 25 mg PO Q6H PRN PRN Reason: Anxiety Stop: 10/29/22 13:09 Last Admin: 09/29/22 18:23 Dose: 25 mg Promethazine HCl 6.25 mg/ (Sodium Chloride) 50.25 mls @ 201 mls/hr IV Q6H PRN PRN Reason: Nausea And Vomiting Stop: 10/23/22 18:34 Last Infusion: 09/30/22 02:08 Dose: Infused Daptomycin 4 mg/ Heparin Sodium (Porcine) 4,000 units/Lactated Ringer's 0.8 mls @ 38.4 mls/hr IV Q24H [facility]; Protocol Stop: 10/07/22 20:59 Last Admin: 10/01/22 00:14 Dose: 38.4 mls/hr Daptomycin 600 mg/ Syringe 12 mls @ 6 mls/min IV Q24H [facility]; Protocol Stop: 10/07/22 12:59 Last Admin: 09/30/22 12:34 Dose: 6 mls/min Aztreonam 2,000 mg/ Dextrose 110 mls @ 55 mls/hr IV Q8H [facility]; Protocol Stop: 10/08/22 17:59 Last Admin: 10/01/22 12:09 Dose: 55 mls/hr Insulin Aspart (Insulin Aspart Per Unit Charge) 0 units SC ACHS [facility] Stop: 10/25/22 03:59 Last Admin: 10/01/22 12:13 Dose: 16 units Insulin Glargine (Lantus Per Unit Charge) 35 - 45 units SC HS [facility]; Protocol Stop: 10/27/22 20:59 Last Admin: 09/30/22 21:26 Dose: 35 units Lactobacillus Acidophilus (Advanced Probiotic 1250 Mg Capsule) [facility] Stop: 10/20/22 08:59 Last Admin: 10/01/22 10:08 Dose: 2 cap Levalbuterol HCl (Levalbuterol Hcl 0.63 Mg/3 Ml Neb) 0.63 mg INH Q6H PRN; Protocol PRN Reason: Shortness Of Breath Stop: 10/20/22 06:58 Last Admin: 09/29/22 10:49 Dose: 0.63 mg Levothyroxine Sodium (Levothyroxine Sodium 100 Mcg Tablet) [facility] Stop: 10/20/22 08:59 Last Admin: 10/01/22 05:46 Dose: 100 mcg Linaclotide (Linaclotide 145 Mcg Capsule) 290 [facility] Stop: 10/20/22 08:59 Last Admin: 10/01/22 05:46 Dose: 290 mcg Loratadine (Loratadine 10 Mg Tab) 20 [facility] Stop: 10/20/22 08:59 Last Admin: 09/25/22 10:14 Dose: 20 mg Loxapine Succinate (Loxapine Succinate) 1 each PO TID PRN PRN Reason: Anxiety Stop: 10/21/22 13:59 Last Admin: 09/29/22 06:06 Dose: 1 each Magnesium Oxide (Magnesium Oxide 400 Mg Tab) 400 mg PO QDL [facility] Stop: 10/20/22 11:29 Last Admin: 10/01/22 12:19 Dose: 400 mg Miscellaneous (Carbohydrates For Hypoglycemia ) 15 - 30 gm PO UD PRN PRN Reason: Hypoglycemia Protocol Stop: 10/20/22 06:58 Miscellaneous (Stop Order [Daptomycin/Heparin Antibiotic Lock]) 1 each N/A DAILY@2058 [facility] Stop: 10/25/22 20:58 Last Admin: 10/01/22 00:11 Dose: 1 each Miscellaneous Information (Pharmacy Glycemic Mgmt Consult) 1 each N/A UD PRN PRN Reason: Consult Stop: 10/24/22 22:34 Montelukast Sodium (Montelukast Sodium 10 Mg Tablet) 10 mg PO PM [facility] Stop: 10/20/22 20:59 Last Admin: 09/30/22 21:16 Dose: 10 mg Multivitamins (Multivitamin Tab) 1 tab PO QDL [facility] Stop: 10/20/22 11:29 Last Admin: 10/01/22 12:09 Dose: 1 tab Nitroglycerin (Nitroglycerin Sl 0.4 Mg/Tab Tab) 0.4 mg SL UD PRN PRN Reason: Chest Pain Stop: 10/20/22 06:58 Nystatin (Nystatin Cr 15 Gm Tube) 1 appln EXT BID PRN PRN Reason: Skin Irritation Stop: 10/20/22 06:58 Oxycodone HCl (Oxycodone Hcl Ir 5 Mg Tab (Immediate Release)) 5 mg PO Q8H PRN PRN Reason: Pain Stop: 10/04/22 19:00 Pantoprazole Sodium (Pantoprazole 40 Mg Tab) 40 mg PO BID [facility] Stop: 10/20/22 08:59 Last Admin: 10/01/22 10:09 Dose: 40 mg Polyethylene Glycol (Polyethylene (Miralax) 17 Gm Pack) 17 gm PO DAILY PRN PRN Reason: Constipation Stop: 10/20/22 06:58 Saccharomyces Boulardii (Saccharomyces Boulardii 250 Mg Cap) 250 mg PO DAILY [facility] Stop: 10/31/22 12:29 Sucralfate (Sucralfate 1 Gm Tab) 1 gm PO BID PRN PRN Reason: gastritis Stop: 10/20/22 06:58 Trazodone HCl (Trazodone Hcl 100 Mg Tab) 300 mg PO HS [facility] Stop: 10/20/22 20:59 Last Admin: 09/30/22 21:16 Dose: 300 mg Umeclidinium/Vilanterol (Umeclidinium/Vilanterol 62.5/25mcg 7 Puffs/Inhaler) 1 puffs INH QAM [facility] Stop: 10/20/22 08:59 Last Admin: 10/01/22 12:08 Dose: 1 puffs Venlafaxine HCl (Venlafaxine Hcl Xr 75 Mg Capxr) 75 mg PO QAM [facility] Stop: 10/20/22 08:59 Last Admin: 10/01/22 10:11 Dose: 75 mg Venlafaxine HCl (Venlafaxine Hcl Xr 150 Mg Capxr) 150 mg PO QAM [facility] Stop: 10/20/22 08:59 Last Admin: 10/01/22 10:12 Dose: 150 mg
[2022-10-01 09:25] LABS: BUN Creatinine Ratio 57.4 (10-20); Calcium 9.5 mg/dl (8.6-10.3); Creatinine Clr Calc Pharmacy 200.2 ml/min; Est GFR (African American) 148.3 ml/min; Magnesium 2.1 mg/dl (1.7-2.4); Potassium 3.4 mmol/L (3.5-5.1)
[2022-10-01] MEDS: INSULIN ASPART PER UNIT CHARGE SC SCH ×4 (09:47→21:07)
[2022-10-01] MEDS: DICYCLOMINE HCL 10 MG CAP PO SCH ×2 (09:52→17:05)
[2022-10-01] MEDS: APIXABAN 5 MG TABLET PO SCH ×2 (09:54→21:14)
[2022-10-01] MEDS: CYANOCOBALAMIN (B-12) 500 MCG TABLET PO SCH (09:57)
[2022-10-01] MEDS: BREXPIPRAZOLE 4 MG PO SCH (09:57)
[2022-10-01] MEDS: DIVALPROEX EXTENDED RELEASE 500 MG TAB PO SCH (10:02)
[2022-10-01] MEDS: FERROUS SULFATE 325 MG TAB PO SCH ×2 (10:04→21:13)
[2022-10-01] MEDS: ADVANCED PROBIOTIC 1250 MG CAPSULE PO SCH (10:08)
[2022-10-01] MEDS: FLUTICASONE FUROATE 100MCG 14 PUFFS/INHALER INH SCH (10:08)
[2022-10-01] MEDS: PANTOprazole 40 MG TAB PO SCH ×2 (10:09→21:11)
[2022-10-01] MEDS: VENLAFAXINE HCL XR 75 MG CAPXR PO SCH (10:11)
[2022-10-01] MEDS: VENLAFAXINE HCL XR 150 MG CAPXR PO SCH (10:12)
[2022-10-01] MEDS: diazePAM 2 MG TABLET PO SCH ×3 (10:41→21:08)
[2022-10-01] MEDS: UMECLIDINIUM/VILANTEROL 62.5/25MCG 7 PUFFS/INHALER INH SCH (12:08)
[2022-10-01] MEDS: MULTIVITAMIN TAB PO SCH (12:09)
[2022-10-01] MEDS: MAGNESIUM OXIDE 400 MG TAB PO SCH ×2 (12:09→12:19)
[2022-10-01] MEDS ORDERED: POTASSIUM CHLORIDE CRTAB 20 MEQ TABCR PO ONE (12:24)
[2022-10-01] MEDS ORDERED: SACCHAROMYCES BOULARDII 250 MG CAP PO SCH (12:30)
[2022-10-01] MEDS: DAPTOmycin 600 MG in SYRINGE 0 ML IV SCH (13:29)
[2022-10-01] MEDS: FUROSEMIDE 40 MG TAB PO SCH (17:05)
[2022-10-01] MEDS: LANTUS PER UNIT CHARGE SC SCH (21:06)
[2022-10-01] MEDS: CYCLOBENZAPRINE HCL 10 MG TAB PO PRN (21:08)
[2022-10-01] MEDS: clonazePAM 0.5 MG TAB PO SCH (21:08)
[2022-10-01] MEDS: MONTELUKAST SODIUM 10 MG TABLET PO SCH (21:12)
[2022-10-01] MEDS: traZODone HCL 100 MG TAB PO SCH (21:12)
[2022-10-01] MEDS: ATENOLOL 50 MG TABLET PO SCH (21:13)
[2022-10-01] MEDS: FAMOTIDINE 40 MG TABLET PO SCH (21:14)
[2022-10-01] MEDS: PROMETHAZINE HCL 6.25 MG in SODIUM CHLORIDE 0.9% 50 ML IV PRN (23:42)
[2022-10-02] MEDS: AZTREONAM 2,000 MG in DEXTROSE 5% 100 ML IV SCH ×2 (01:22→09:13)
[2022-10-02] MEDS: LEVOTHYROXINE SODIUM 100 MCG TABLET PO SCH (05:57)
[2022-10-02] MEDS: LINACLOTIDE 145 MCG CAPSULE PO SCH (05:57)
[2022-10-02] MEDS: ALBUTEROL HFA 8 GM INHALER INH SCH (07:04)
[2022-10-02] MEDS: DICYCLOMINE HCL 10 MG CAP PO SCH (08:21)
[2022-10-02] MEDS: APIXABAN 5 MG TABLET PO SCH (08:25)
[2022-10-02] MEDS: BREXPIPRAZOLE 4 MG PO SCH (08:26)
[2022-10-02] MEDS: CYANOCOBALAMIN (B-12) 500 MCG TABLET PO SCH (08:27)
[2022-10-02] MEDS: DIVALPROEX EXTENDED RELEASE 500 MG TAB PO SCH (08:28)
[2022-10-02] MEDS: FERROUS SULFATE 325 MG TAB PO SCH (08:28)
[2022-10-02] MEDS: FLUTICASONE FUROATE 100MCG 14 PUFFS/INHALER INH SCH (08:29)
[2022-10-02] MEDS: PANTOprazole 40 MG TAB PO SCH (08:31)
[2022-10-02] MEDS: ADVANCED PROBIOTIC 1250 MG CAPSULE PO SCH (08:31)
[2022-10-02] MEDS: UMECLIDINIUM/VILANTEROL 62.5/25MCG 7 PUFFS/INHALER INH SCH (08:32)
[2022-10-02] MEDS: VENLAFAXINE HCL XR 75 MG CAPXR PO SCH (08:32)
[2022-10-02] MEDS: diazePAM 2 MG TABLET PO SCH (08:42)
[2022-10-02] MEDS: INSULIN ASPART PER UNIT CHARGE SC SCH (09:04)
[2022-10-02] MEDS: VENLAFAXINE HCL XR 150 MG CAPXR PO SCH (09:22)
--- NOTE | 2022-10-02 10:14 | Discharge Summary ---
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 Lives at home with her mother, was sent in by her infectious disease doctor because her urine cultures are growing Morganella, which was sensitive to Invanz, t THE PATIENT IS ALLERGIC TO MULTIPLE MEDICATIONS. ID recommended 2 weeks of IV antibiotics and recommended Invanz 1 gram given the severity of her illness in the past, that is the reason she came to the hospital. Currently, resting comfortably, hemodynamically stable. Mother is in the room. She complains of lot of back spasms and spasms in the legs. Denies any chest pain, no shortness of breath. Has occasional cough. No runny nose. No headache, no blurred visions, no abdominal pain. Urostomy and colostomy seem to be working okay. Admission Exam Per Admitting Provider GENERAL: The patient is morbidly obese, not in acute distress. VITAL SIGNS: Temperature 36.5, pulse 93, respiratory rate 18, blood pressure 141/91, oxygen 92% on room air. HEENT: Pupils equal, round and reactive to light. Oral mucosa moist. NECK: No JVD, no neck masses. CARDIOVASCULAR: S1 and S2 heard. Regular rate and rhythm. No murmur, no gallop. RESPIRATORY SYSTEM: Normal AP diameter. No accessory muscle use. No wheezing, no crackles. ABDOMEN: Soft, bowel sounds present. Colostomy and ileostomy bag seen. CENTRAL NERVOUS SYSTEM: Alert and oriented. Speech is clear. No facial droop. Obeys simple commands. EXTREMITIES: Bilateral lower extremity below-knee amputation seen. SKIN: Decubitus ulcers seen.Ulcers in labial and groin region seen Principal Diagnosis UTI - Morganella Pseudomonas inf., labial cellulitis MRSA bacteremia , port infection Discharge Exam General Appearance:Morbidly Obese F in no apparent distress Head: normocephalic, Atraumatic Eyes: normal inspection, EOMI Neck: supple Respiratory/Chest: Normal breath sounds, CTA, No accessory muscle use Cardiovascular: S1, S2, No murmur Abdomen/GI: Soft, tender, + urostomy, colostomy Bowel sounds present : Labial swelling Extremities/Musculoskeletal:normal inspection, no edema, B/L BKA Neurologic/Psych:AAOX3, grossly no focal neurological deficits Skin: normal color, warm Discharge Data Allergies Allergy/AdvReac Type Severity Reaction Status Date / Time chlorhexidine Allergy Severe blisters Verified 09/17/22 17:54 adhesive Allergy Intermediate TAPE- HIVES Verified 09/17/22 17:54 ciprofloxacin Allergy Intermediate hives Verified 09/17/22 17:54 clindamycin Allergy Intermediate Redness/Itc Verified 09/17/22 17:54 hiness imipenem Allergy Intermediate May Verified 09/17/22 17:54 use-See comment levofloxacin Allergy Intermediate rash,HEARD Verified 09/17/22 17:54 VOICES linezolid Allergy Intermediate rash Verified 09/17/22 17:54 vancomycin Allergy Intermediate May use - Verified 09/17/22 17:54 See comment piperacillin [From Zosyn] Allergy Mild may Verified 09/17/22 17:54 use-see comment tazobactam [From Zosyn] Allergy Mild See Verified 09/17/22 17:54 piperacillin comment amikacin Allergy Unknown PER DR Verified 09/17/22 17:54 ROBINS,RXN WAS TO ZOSYN NOT AMKrash;hives onabotulinumtoxinA Allergy Unknown Rash/swelling Verified 09/17/22 17:54 [From Botox] at injection site cefepime Allergy rash on Verified 09/28/22 16:53 cefepime ([id number]) buspirone AdvReac Severe HALLUCINATI Verified 09/17/22 17:54 ONS latex AdvReac Mild Rash Verified 09/17/22 17:54 Consultations 09/20/22 02:40 ED Decision to Admit Stat 09/21/22 13:19 Consult Gynecology Routine 09/23/22 09:08 Consult Infectious Diseases Routine 09/27/22 16:37 Consult General Surgery Routine Ordered Studies 09/23/22 18:16 CT abd pelvis wo con Routine FINDINGS: Lung bases: Unremarkable. No mass. No consolidation. ABDOMEN: Liver: Unremarkable. Gallbladder and bile ducts: Unremarkable. No calcified stones. No ductal dilation. Pancreas: Unremarkable. No ductal dilation. Spleen: Unremarkable. No splenomegaly. Adrenals: Unremarkable. No mass. Kidneys and ureters: Mild left-sided hydroureteronephrosis. There is mild left-sided urothelial thickening and periureteral stranding. Nonobstructing bilateral intrarenal calculi. Stomach and bowel: Left lower quadrant end colostomy. No obstruction. No mucosal thickening. PELVIS: Appendix: No findings to suggest acute appendicitis. Bladder: The patient is status post cystectomy with ileal conduit. Reproductive: IUD in place. ABDOMEN and PELVIS: Intraperitoneal space: Unremarkable. No free air. No significant fluid collection. Bones/joints: There is bilateral hip dysplasia. 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 No acute fracture. No dislocation. Soft tissues: Unremarkable. Vasculature: Unremarkable. No abdominal aortic aneurysm. Lymph nodes: Unremarkable. No enlarged lymph nodes. IMPRESSION: Mild left hydroureteronephrosis extending to the ileal conduit without evidence for obstructing calculus seen. Mild urothelial thickening and cornel-ureteral stranding may reflect underlying infection. Hospital Course (1) UTI (urinary tract infection): Patient is a 37 yr female who was sent in from Infectious Disease because of urinary tract infection with Morganella. Complicated Urinary tract infection with Morganella MRSA Bacteremia: POA UTI likely due to urostomy MRSA likely colonizer off IV port -- Blood culture from 09/20: 1/2: Coagulase-negative staph, MRSA --Blood cultures from 09/24:06/08: Coagulase-negative staph -- Repeat blood cultures negative to date -- Urine culture from 09/17/2022 growing Morganella --CT ABD:Mild left hydroureteronephrosis extending to the ileal conduit without evidence for obstructing calculus seen. Mild urothelial thickening and cornel- ureteral stranding may reflect underlying infection. --ECHO: Technically limited study. Contrast injection of Definity was performed to improve for assessment of LV function. Left ventricle is normal in size. Normal left ventricle wall thickness. Left ventricle wall motion is normal. EF 60 to 65%. Valve structures are grossly normal. Technical limitations are insufficient for exclusion of vegetation. -- Continue Invanz for 2 weeks as recommended by ID>> changed to cefepime on 09/23/2022 (as patient growing Pseudomonas on vaginal swab) -> changed to aztreonam (09/28 pm) --Started on daptomycin 09/23/2022 Appreciate infectious disease input Received IV daptomycin lock therapy for the port Continue current antibiotics--duration to be determined Premedicate with Benadryl as needed if allergy symptoms persist Also started on low-dose prednisone Repeat blood cultures pending Discussed with infectious disease 09/27: Recommends port removal. Also recommends 14-day course of antibiotics with daptomycin, cefepime Consulted surgery for port removal - discussed w/ surgeon (Dr. Washington) 09/29 - hesitant about port removal at this time (as pt had port removed/ replaced before ) 09/28 - Discussed w/Dr. Barrett (ID) - plan for port removal -ok to replace port at the same time. Given mrsa bacteremia - not recommended to keep the port. Pt should then be on 2 more weeks of daptomycin after port removal (replacement). Pt having rash w/ cefepime despite benadryl - discussed as well w/Dr. Barrett - switched to Aztreonam 09/29- - discussed w/ surgeon (Dr. Washington) today 09/29 - hesitant about port removal at this time - (as pt had port removed/ replaced before ) -plan to re- discuss w/ ID 09/30 -discussed with infectious disease, and surgery, and decided to pursue antibiotic treatment, without port removal at this time. Plan to continue daptomycin 600 mg daily with lock-in therapy through October 19. Continue aztreonam 2 g q8hrs through October 06. Blood cultures to be checked 5-7 days after finishing treatment with Daptomycin. 10/01 US guided line placed. CM involved - poss. DC w/HH 10/01 - Discussed w/ ID/ pharmacy/CM. Per ID, no need for peripheral line and all the treatment can be done via port on DC. Line will ne removed. 10/02 - pt is feeling well and per CM, infusion agency and home health is set up. Plan to discharge patient today. Right labial cellulitis-POA Vaginitis-POA Vaginal discharge S/P IUD H/O vaginal Melida Vulva culture growing Pseudomonas, MRSA Diflucan for 2 doses Appreciate TIP STRETCHER input Continue antibiotics as above DM II HbA1c 7.9 Continue insulin per protocol Monitor blood glucose levels Appreciate glycemic pharmacy help Hypokalemia Replace and monitor Elevated lactic acid possible due to ongoing infection Improved with IV fluids Obstructive sleep apnea Obesity hypoventilation syndrome On BiPAP at night Hypertension on atenolol and Lasix Monitor Hypothyroidism on levothyroxine Hyperlipidemia Hold Lipitor while on daptomycin Chronic hypoxic hypercarbic respiratory failure Continue BiPAP, supplemental oxygen Bipolar disorder, depression Continue home medications. H/O spina bifida S/P ventriculoperitoneal shunt chronic migraines Continue home medications. Morbid obesity BMI 47 . H/O PE on Eliquis Total Time Total Time Spent Total Time Spent (In Minutes): 40 Discharge Plan Discharge Items Patient Disposition: Home - Home Health Services Reason For Visit: UTI Discharge Diagnosis: UTI - Morganella Pseudomonas inf., labial cellulitis MRSA bacteremia , port infection Activity: Per Instructions section Non-emergency contact: Primary Care Provider and Specialist Call non-emergency contact if: you have any medication questions and your symptoms worsen Follow-up/Referrals: Candie Clemons MD [Primary Care Provider] - (Date & Time 10/06/2022 11:20 AM Provider Candie Clemons MD Department Family [facility] ) Diet: Carb Consistent or DM2 Addtl Attending Provider Instructions: Follow-up with primary care physician, and infectious disease doctor. Continue treatment with IV antibiotics, as prescribed. - Continue IV daptomycin daily and aztreonam every 8 hours. End date for daptomycin is October 19, and end date for Aztreonam is October 06. Continue with daptomycin lock in therapy as prescribed. You will need blood work CBC, CMP, CPK weekly. You will need blood cultures to be repeated, 2 sets from periphery, 5 to 7 days after finishing daptomycin. Pending Studies at Discharge: No Stand-Alone Forms: My Verafin, Smoking Cessation Medications and DC Order Prescriptions: Continued ferrous sulfate [Iron (ferrous sulfate)] 325 mg (65 mg iron) tablet 325 mg PO BID cyanocobalamin (vitamin B-12) 1,000 mcg capsule 1,000 mcg PO DAILY Digestive Advantage Prob Gummy 250 million cell tablet,chewable 250 cell PO QAM nystatin 100,000 unit/gram cream 1 applic topical BID PRN (Reason: Skin Irritation) magnesium sulfate 100 mg capsule 400 mg PO QDL (DME) Wheelchair (Powered) Device See Rx Instructions .Route Qty: 1 0RF Rx Instructions: wheelchair repair- left arm (DME) Hospital Bed Homecare Misc See Rx Instructions .Route Qty: 1 0RF Rx Instructions: REPLACEMENT HOSPITAL BED MATTRESS albuterol sulfate [ProAir HFA] 90 mcg/actuation HFA aerosol inhaler 2 inh INH Q6H PRN (Reason: Shortness Of Breath Or Wheezing) Qty: 8 3RF (DME) Mattress (Air or other) Misc See Rx Instructions .Route Qty: 1 0RF Rx Instructions: ALTERNATING PRESSURE MATTRESS FOR HOSPITAL BED famotidine 40 mg tablet 40 mg PO HS Qty: 90 3RF (DME) pen needle, diabetic [BD Ultra-Fine Mini Pen Needle] 31 gauge x 3/16" needle See Rx Instructions .ROUTE .MEDSUPPLY Qty: 200 3RF Rx Instructions: Use to inject insulin QID ([facility]) Dexcom G6 Sensor Device See Rx Instructions .Route Qty: 3 11RF Rx Instructions: Change sensor every 10 days ([facility] [place]) Dexcom G6 Transmitter Device See Rx Instructions .Route Qty: 1 3RF Rx Instructions: Change transmitter every 90 days riboflavin (vitamin B2) 400 mg tablet 400 mg PO Q OTHER DAY Rx Instructions: every other day loxapine succinate 5 mg capsule 5 mg PO TID PRN (Reason: Anxiety) cyclobenzaprine 5 mg tablet 5 mg PO TID PRN (Reason: muscle spasm) atenolol 100 mg tablet 100 mg PO HS sucralfate [Carafate] 1 gram tablet 1 g PO BID PRN (Reason: gastritis) ([facility] [place]) Accu-Chek Guide test strips Strip See Rx Instructions .Route Qty: 400 3RF Rx Instructions: Test blood sugar four times daily venlafaxine [Effexor XR] 75 mg capsule,extended release 24hr 75 mg PO QAM Rx Instructions: TAKE WITH 150MG CAPSULE = 225MG DAILY. trazodone 150 mg tablet 300 mg PO HS Rexulti 4 mg tablet 4 mg PO QAM venlafaxine 150 mg Tablet Extended Release 24hr 150 mg PO QAM Rx Instructions: TAKE WITH 75MG CAPSULE = 225MG DAILY. acetaminophen [Tylenol Extra Strength] 500 mg Tablet 500 - 1,000 mg PO DIRECTED PRN (Reason: Pain) Trulicity 4.5 mg/0.5 mL pen injector 4.5 mg subcut Q7D Rx Instructions: THURSDAYS levalbuterol HCl 0.63 mg/3 mL solution for nebulization 0.63 mg inhalation Q6H PRN (Reason: Shortness Of Breath) Rx Instructions: INHALE 1 VIAL VIA NEBULIZER EVERY 6 HOURS NEEDED FOR SHORTNESS OF BREATH Linzess 290 mcg capsule 290 mcg PO DAILYBB Trelegy Ellipta 100-62.5-25 mcg blister with device 1 inh INHALATION QAM divalproex 500 mg tablet extended release 24 hr 2,000 mg PO QAM Eliquis 5 mg tablet 5 mg PO AMHS albuterol sulfate 90 mcg/actuation HFA aerosol inhaler 2 puff INHALATION AMHS Multivitamin Gummies 200 mcg Tablet,Chewable 1 tab PO QDL montelukast [Singulair] 10 mg tablet 10 mg PO PM levothyroxine [Synthroid] 100 mcg tablet 100 mcg PO QAM dicyclomine 10 mg Capsule 20 mg PO AMPM Rx Instructions: take with breakfast and supper clorazepate dipotassium 3.75 mg Tablet 3.75 mg PO TID loratadine 10 mg Tablet 20 mg PO QAM furosemide 40 mg tablet 40 mg PO QDD cetirizine 10 mg tablet 10 mg PO DAILY PRN (Reason: PRIOR TO ANTIBIOTICS) Rx Instructions: GIVE 45 MINUTES PRIOR TO ANTIBIOTICS!!!! clonazepam 0.5 mg Tablet 0.5 mg PO HS Rx Instructions: administer 30 minutes before bedtime menthol-zinc oxide [Calmoseptine] 0.44-20.6 % Ointment 1 applic TOPICAL DIRECTED PRN (Reason: UNDER XEROFOAM TO BUTTOCKS) Rx Instructions: APPLY TO SORE ON BUTTOCKS, THEN APPLY XEROFOAM TO AREA. (DME) XEROFORM Misc atorvastatin 40 mg tablet 40 mg PO QDD ondansetron 8 mg tablet,disintegrating 8 mg translingual Q6H PRN (Reason: NAUSEA/VOMITING) Rx Instructions: TAKE 1 TABLET SUBLINGUALLY EVERY 6 HOURS NEEDED FOR NAUSEA pantoprazole 40 mg tablet,delayed release (DR/EC) 40 mg PO BID Rx Instructions: TAKE 1 TABLET BY MOUTH TWICE A DAY insulin aspart U-100 [Novolog FlexPen U-100 Insulin] 100 unit/mL (3 mL) insulin pen 25 unit subcut TIDM Rx Instructions: sliding scale as per carb ratio insulin glargine [Lantus Solostar U-100 Insulin] 100 unit/mL (3 mL) insulin pen 50 unit subcut HS Discharge Orders: Discharge Order (Routine); Ordered 10/02/22 Ordered By: Omar Cavazos Admission Data Admit Date/Time: 09/20/22 05:11 Attending Provider: Omar Cavazos Admit Provider: Lincoln Berger Primary Care Provider: Candie Clemons Other Providers: Lincoln Berger ; Jim Blair ; Marion Grere ; Rosa Maria Sierra ; Balta Fraga ; Parveen Glasgow ; Nadir Amador ; Chung Galan ; Cheyanne Leonard ; Nai Gould V. ; Neida Weiner ; Betty Jimenez ; Deidre Cr ; Chelsea Love ; Trisha Villanueva ; Nikolas Infante ; Frandy Kirk ; Brown Barrett ; Darian Jacobo I. ; Shon Chase II ; Nohemi Burgos ; Werner Almanza ; Rocael Weaver ; Spencer Ortiz ; [facility] ; Grant Rubin ; Jayson Washington ; Werner Melendez ; Myriam Watkins ; Naila Watts ; Sourav Ramirez ; Jean Marie Cain ; Latoya Mcgee ; Mamta Bernal ; Rocael Le Jr ; Selene Pacheco ; Benedict Rey ; Nata Barr
== END 2022-10-02 11:30 | disposition home health service (06) | DRG 699 ==
LOC: ED 20:51 → EDINP 09-20 05:11 → SUATTDRO 09-20 05:11 → 2W 09-20 06:58

== ENCOUNTER 2022-10-15 14:45 | Inpatient (IN) ==
[2022-10-15] MEDS ORDERED: KETOROLAC TROMETHAMINE 15 MG/ML VIAL IV ONE (15:19)
[2022-10-15] MEDS ORDERED: MoRPHine SULFATE 4 MG/ML 1 ML CARP\\VIAL IV STA (15:19)
--- NOTE | 2022-10-15 15:23 | Emergency Department Note ---
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 3RF Rx Instructions: Use to inject insulin QID (DME) Dexcom G6 Sensor Device See Rx Instructions .Route Qty: 3 11RF Rx Instructions: Change sensor every 10 days (DME) Dexcom G6 Transmitter Device See Rx Instructions .Route Qty: 1 3RF Rx Instructions: Change transmitter every 90 days riboflavin (vitamin B2) 400 mg tablet 400 mg PO Q OTHER DAY Rx Instructions: every other day loxapine succinate 5 mg capsule 5 mg PO TID PRN (Reason: Anxiety) cyclobenzaprine 5 mg tablet 5 mg PO TID PRN (Reason: muscle spasm) atenolol 100 mg tablet 100 mg PO HS sucralfate [Carafate] 1 gram tablet 1 g PO BID PRN (Reason: gastritis) (DME) Accu-Chek Guide test strips Strip See Rx Instructions .Route Qty: 400 3RF Rx Instructions: Test blood sugar four times daily venlafaxine [Effexor XR] 75 mg capsule,extended release 24hr 75 mg PO QAM Rx Instructions: TAKE WITH 150MG CAPSULE = 225MG DAILY. trazodone 150 mg tablet 300 mg PO HS Rexulti 4 mg tablet 4 mg PO QAM venlafaxine 150 mg Tablet Extended Release 24hr 150 mg PO QAM Rx Instructions: TAKE WITH 75MG CAPSULE = 225MG DAILY. acetaminophen [Tylenol Extra Strength] 500 mg Tablet 500 - 1,000 mg PO DIRECTED PRN (Reason: Pain) Trulicity 4.5 mg/0.5 mL pen injector 4.5 mg subcut Q7D Rx Instructions: THURSDAYS levalbuterol HCl 0.63 mg/3 mL solution for nebulization 0.63 mg inhalation Q6H PRN (Reason: Shortness Of Breath) Rx Instructions: INHALE 1 VIAL VIA NEBULIZER EVERY 6 HOURS NEEDED FOR SHORTNESS OF BREATH Linzess 290 mcg capsule 290 mcg PO DAILYBB Trelegy Ellipta 100-62.5-25 mcg blister with device 1 inh INHALATION QAM divalproex 500 mg tablet extended release 24 hr 2,000 mg PO QAM Eliquis 5 mg tablet 5 mg PO AMHS albuterol sulfate 90 mcg/actuation HFA aerosol inhaler 2 puff INHALATION AMHS Multivitamin Gummies 200 mcg Tablet,Chewable 1 tab PO QDL daptomycin 500 mg recon soln 600 mg IV DAILY Qty: 17 0RF Rx Instructions: COURSE ENDS 10/19/22. administer over 30 mins clotrimazole 1 % cream 1 applic TOPICAL DIRECTED PRN (Reason: BUTTOCKS WHEN SOILED.) montelukast [Singulair] 10 mg tablet 10 mg PO PM levothyroxine [Synthroid] 100 mcg tablet 100 mcg PO QAM dicyclomine 10 mg Capsule 20 mg PO AMPM Rx Instructions: take with breakfast and supper clorazepate dipotassium 3.75 mg Tablet 3.75 mg PO TID loratadine 10 mg Tablet 20 mg PO QAM furosemide 40 mg tablet 40 mg PO QDD cetirizine 10 mg tablet 10 mg PO DAILY PRN (Reason: PRIOR TO ANTIBIOTICS) Rx Instructions: GIVE 45 MINUTES PRIOR TO ANTIBIOTICS!!!! clonazepam 0.5 mg Tablet 0.5 mg PO HS Rx Instructions: administer 30 minutes before bedtime menthol-zinc oxide [Calmoseptine] 0.44-20.6 % Ointment 1 applic TOPICAL DIRECTED PRN (Reason: UNDER XEROFOAM TO BUTTOCKS) Rx Instructions: APPLY TO SORE ON BUTTOCKS, THEN APPLY XEROFOAM TO AREA. (DME) XEROFORM Misc atorvastatin 40 mg tablet 40 mg PO QDD ondansetron 8 mg tablet,disintegrating 8 mg translingual Q6H PRN (Reason: NAUSEA/VOMITING) Rx Instructions: TAKE 1 TABLET SUBLINGUALLY EVERY 6 HOURS NEEDED FOR NAUSEA pantoprazole 40 mg tablet,delayed release (DR/EC) 40 mg PO BID Rx Instructions: TAKE 1 TABLET BY MOUTH TWICE A DAY insulin aspart U-100 [Novolog FlexPen U-100 Insulin] 100 unit/mL (3 mL) insulin pen 25 unit subcut TIDM Rx Instructions: sliding scale as per carb ratio insulin glargine [Lantus Solostar U-100 Insulin] 100 unit/mL (3 mL) insulin pe n 50 unit subcut HS Referrals Referrals: Candie Clemons MD [Primary Care Provider] -
[2022-10-15 15:57] LABS: Basophils # (auto) 0.03 K/uL (0-0.2); Basophils % (auto) 0.5 %; Eosinophils # (auto) 0.14 K/uL (0-0.50); Eosinophils % (auto) 2.3 %; Hematocrit (blood only) 39.3 % (37.0-47.0); Hemoglobin 12.4 g/dl (12.0-16.0); Immature Granulocytes # (auto) 0.01 K/uL (0.01-0.20); Immature Granulocytes % (auto) 0.2 %; Lymphocytes # (auto) 1.56 K/uL (1.2-3.4); Lymphocytes % (auto) 25.1 %; Mean Corpuscular Hemoglobin 30.6 pg (25.0-34.0); Mean Corpuscular Hgb Conc 31.6 g/dL (32.0-36.0); Monocytes # (auto) 0.41 K/uL (0.11-0.59); Monocytes % (auto) 6.6 %; Neutrophils # (auto) 4.06 K/uL (1.40-6.50); Neutrophils % (auto) 65.3 %; Platelet Count 226 K/uL (130-400); RDW Coefficient of Variation 18.6 % (11.5-14.5); RDW Standard Deviation 66.4 fL (36.4-46.3); Red Blood Count 4.05 M/uL (4.20-5.40); White Blood Count 6.21 K/ul (4.8-10.8)
[2022-10-15] MEDS ORDERED: ONDANSETRON INJ 2 MG/ML 2 ML VIAL IV STA (16:00)
[2022-10-15] MEDS ORDERED: SODIUM CHLORIDE 0.9% 1000ML 500 ML IV ONE ×3 (16:08→17:35)
[2022-10-15 16:09] LABS: Appearance Urine Clear (Clear); Bacteria Urine Automated Negative (Negative); Bilirubin Urine Negative (Negative); Blood Urine Trace (Negative); Color Urine Yellow; Glucose Urine UA 3+ (Negative); Ketones Urine Negative (Negative); Leukocyte Esterase Urine Trace (Negative); Nitrite Urine Negative (Negative); Protein Urine Negative (Negative); RBC Urine Automated 0-4 /hpf (0-4); Specific Gravity Urine 1.014 (1.000-1.030); Urobilinogen Urine Negative (Negative); pH Urine 6.5 (4.5-7.5)
[2022-10-15 16:22] LABS: Albumin Level 3.7 gm/dl (3.4-5.0); Anion Gap 12 (3-11); Bilirubin,Total 0.4 mg/dl (0.2-1.0); Calcium 8.8 mg/dl (8.6-10.3); Carbon Dioxide 23 mmol/L (21-32); Chloride 96 mmol/L (98-107); Magnesium 1.7 mg/dl (1.7-2.4); Potassium 3.6 mmol/L (3.5-5.1); Sodium 131 mmol/L (136-145)
[2022-10-15] MEDS ORDERED: NovoLIN-R INSULIN PER UNIT CHARGE IV STA (16:46)
[2022-10-15 16:48] LABS: Alanine Aminotransferase 33 U/L (7-52); Albumin Globulin Ratio 0.9 (0.9-2); Alkaline Phosphatase 87 U/L (34-104); Aspartate Aminotransferase 29 U/L (13-39); BUN Creatinine Ratio 39.6 (10-20); Blood Urea Nitrogen 19 mg/dl (6-23); Est GFR (African American) 147.3 ml/min; Est GFR (Non-African American) 127.1 ml/min; Globulin 4.1 gm/dl (2.5-4.0); Glucose 496 mg/dl (70-99(Fasting)); Lipase 52 U/L (11-82); Total Protein 7.8 gm/dl (6.0-8.3)
--- NOTE | 2022-10-15 16:50 | CT Scan Report ---
CT abd pelvis wo con CLINICAL HISTORY: flank pain TECHNIQUE: Helical axial images of the abdomen and pelvis were obtained. Automated dose lowering tech niques and/or adjustment according to patient size were utilized for this exam. This exam was perfor med without intravenous contrast. CT DOSE: 1028.93 mGy.cm COMPARISON: Comparison is made to CT abdomen pelvis 09/23/2022 FINDINGS: Lower chest: Right pleural effusion is seen with underlying atelectasis. A pleural drainage catheter is seen. Liver: Unremarkable. No focal lesions are seen. Gallbladder and biliary tree: Patient is status post cholecystectomy. No intra- or extrahepatic bilia ry ductal dilation. Pancreas: Unremarkable, no focal lesions. Spleen: Unremarkable. Adrenals: Unremarkable. Kidneys and ureters: Left greater than right hydroureter is seen. Patient is status post cystectomy w ith ileal conduit formation. Nonobstructive cholelithiasis is seen. Partially calcified lesion in the left kidney is again noted. Bladder: Status post cystectomy. Reproductive organs: Intrauterine device is noted. Bowel: Patient is status post partial colectomy with Hahn pouch formation. A left lower quadrant c olostomy is seen. The appendix is normal. Lymph nodes Retroperitoneal: Unremarkable. Pelvic: Unremarkable. Mesenteric: Unremarkable. Peritoneum: Normal. Vessels: Unremarkable. Abdominal wall: A fat-containing umbilical hernia is seen. Postsurgical changes are seen. Partial vis ualization of a right-sided shunt Bones: Chronic dysplasia of the hip joints and pelvis noted. Mild degenerative changes are seen in th e spine. IMPRESSION: 1. No acute abnormalities are seen to explain flank pain. 2. Postsurgical changes of partial colectomy with colostomy and ileal conduit formation noted. 3. Left hydroureter is physiologic and unchanged from prior exam. Nonobstructive nephrolithiasis is seen bilaterally. ACT 112: Negative or not required by law. Electronically signed by: Rudy Fragoso M.D. 10/15/2022 4:48 PM
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
[2022-10-15] MEDS ORDERED: KETOROLAC TROMETHAMINE 15 MG/ML VIAL IV PRN (18:37)
[2022-10-15] MEDS: MoRPHine SULFATE 4 MG/ML 1 ML CARP\\VIAL IV PRN (19:04)
[2022-10-15] MEDS ORDERED: LEVALBUTEROL HCL 0.63 MG/3 ML NEB INH PRN (20:24)
[2022-10-15] MEDS ORDERED: DEXTROSE 50% 50 ML SYRINGE IV PRN (20:24)
[2022-10-15] MEDS ORDERED: GLUCOSE 10 TAB/TUBE PO PRN (20:24)
[2022-10-15] MEDS ORDERED: MENTHOL-ZINC OXIDE 360 APPLN/120 GM TUBE EXT PRN (20:24)
[2022-10-15] MEDS ORDERED: CARBOHYDRATES FOR HYPOGLYCEMIA PO PRN (20:24)
[2022-10-15] MEDS ORDERED: POLYETHYLENE (MIRALAX) 17 GM PACK PO PRN (20:24)
[2022-10-15] MEDS ORDERED: GLUCAGON FOR INJ 1 MG VIAL SQ PRN (20:24)
[2022-10-15] MEDS ORDERED: GLUCOSE 40% GEL 15 GM TUBE PO PRN (20:24)
[2022-10-15] MEDS ORDERED: NON-FORMULARY MEDICATION (Riboflavin (Vitamin B2) 400 mg tablet) PO SCH (20:24)
[2022-10-15] MEDS ORDERED: SUCRALFATE 1 GM TAB PO PRN (20:24)
[2022-10-15] MEDS ORDERED: ALBUTEROL HFA 8 GM INHALER INH PRN (20:24)
[2022-10-15] MEDS ORDERED: CETIRIZINE HCL 10 MG TABLET PO PRN (20:24)
[2022-10-15] MEDS ORDERED: CLOTRIMAZOLE 1% CR 15 GM TUBE TOP PRN (20:24)
[2022-10-15] MEDS ORDERED: NYSTATIN CR 15 GM TUBE EXT PRN (20:24)
[2022-10-15] MEDS ORDERED: CLORAZEPATE DIPOTASSIUM 3.75 MG PO SCH (21:00)
[2022-10-15] MEDS ORDERED: ATENOLOL 50 MG TABLET PO SCH (21:00)
[2022-10-15] MEDS ORDERED: LANTUS PER UNIT CHARGE SQ SCH (21:00)
[2022-10-15] MEDS: MEROPENEM 500 MG in SYRINGE 0 ML IV SCH (21:24)
[2022-10-15] MEDS: ONDANSETRON INJ 2 MG/ML 2 ML VIAL IV PRN (21:25)
[2022-10-15] MEDS: ACETAMINOPHEN 325 MG TAB PO PRN (21:25)
[2022-10-15] MEDS: HEPARIN 100 UNIT/ML 5ML FLUSH FLUSH PRN (21:26)
[2022-10-15] MEDS: FAMOTIDINE 40 MG TABLET PO SCH (21:27)
[2022-10-15] MEDS: MONTELUKAST SODIUM 10 MG TABLET PO SCH (21:27)
[2022-10-15] MEDS: PANTOprazole 40 MG TAB PO SCH (21:27)
[2022-10-15] MEDS: traZODone HCL 100 MG TAB PO SCH (21:28)
[2022-10-15] MEDS: APIXABAN 5 MG TABLET PO SCH (21:28)
[2022-10-15] MEDS: clonazePAM 0.5 MG TAB PO SCH (22:03)
[2022-10-15] MEDS: INSULIN ASPART PER UNIT CHARGE SC SCH ×2 (22:03→22:20)
[2022-10-15] MEDS: ALBUTEROL HFA 8 GM INHALER INH SCH (22:18)
[2022-10-15] MEDS: [UNRECOGNIZED DRUG - OTHER] SCH (23:01)
[2022-10-16] MEDS: HEPARIN 100 UNIT/ML 5ML FLUSH FLUSH PRN (01:12)
[2022-10-16] MEDS: MEROPENEM 500 MG in SYRINGE 0 ML IV SCH ×4 (01:12→22:32)
[2022-10-16] MEDS ORDERED: PHARMACY GLYCEMIC MGMT CONSULT PRN (02:07)
[2022-10-16] MEDS: hydrOXYzine HCl 25 MG TAB PO PRN (02:14)
[2022-10-16] MEDS: LINACLOTIDE 145 MCG CAPSULE PO SCH (05:38)
[2022-10-16] MEDS: LEVOTHYROXINE SODIUM 100 MCG TABLET PO SCH (05:38)
[2022-10-16] MEDS ORDERED: OPTIRAY 320 500ml IV ONE (06:30)
--- NOTE | 2022-10-16 06:50 | Communication Note ---
Date of Service: October 16, 2022 547 AM Notified by RN of patient complaints of right-sided numbness face and right upper extremity. No weakness, no headache, no neck pain. No prior symptoms as per RN. PPE obese No facial asymmetry MMTS BUE 4/5 Stroke alert called. Laboratory Results Impressions Head CT 10/16/22 06:05 CR Exam(s): CT HEAD Without Contrast EXAM: CT Head Without Intravenous Contrast CLINICAL HISTORY: Reason for exam: stroke alert. TECHNIQUE: Axial computed tomography images of the head/brain without intravenous contrast. CTDI is 37.61 mGy and DLP is 624.41 mGy-cm. Automated exposure control was utilized for the study. A dose lowering technique was utilized adhering to the principles of ALARA. COMPARISON: CT head performed 10/12/2017 FINDINGS: No acute intracranial hemorrhage, major vascular territory infarct or midline shift. Stable right frontal approach ventricular catheter with tip in stable location. Ventricles are completely decompressed/slitlike unchanged from prior. 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 Cerebellar tonsils are low lying. No acute calvarial fracture. Bilateral lens replacements noted. The visualized paranasal sinuses and mastoid air cells clear. IMPRESSION: No acute intracranial process or significant change from 10/12/2017. If persistent clinical concern for acute stroke, MRI could further evaluate. Stable chronic findings as detailed above. Communications: Call Doctor Stroke Electronically signed by: Trenton Wayne M.D. 10/16/22 06:52 AM Head CTA 10/16/22 06:05 CR Exam(s): CTA HEAD With Contrast IV Amt: 106 ml EXAM: CT Angiography Head With Intravenous Contrast CLINICAL HISTORY: Reason for exam: stroke alert. TECHNIQUE: Axial computed tomographic angiography images of the head with intravenous contrast. CTDI is 37.61 mGy and DLP is 624.41 mGy-cm. Automated exposure control was utilized for the study. A dose lowering technique was utilized adhering to the principles of ALARA. MIP reconstructed images were created and reviewed. CONTRAST: Patient received 106 ml of IV contrast COMPARISON: Concurrent CT head. FINDINGS: Right internal carotid artery: No acute findings. Intracranial segment is patent with no significant stenosis. No aneurysm. Right anterior cerebral artery: Unremarkable. No occlusion or significant stenosis. No aneurysm. Right middle cerebral artery: Unremarkable. No occlusion or significant stenosis. No aneurysm. Right posterior cerebral artery: Unremarkable. No occlusion or significant stenosis. No aneurysm. Right vertebral artery: Unremarkable as visualized. Left internal carotid artery: No acute findings. Intracranial segment is patent with no significant stenosis. No aneurysm. Left anterior cerebral artery: Unremarkable. No occlusion or significant stenosis. No aneurysm. Left middle cerebral artery: Unremarkable. No occlusion or significant stenosis. No aneurysm. Left posterior cerebral artery: Unremarkable. No occlusion or significant stenosis. No aneurysm. Left vertebral artery: Unremarkable as visualized. Basilar artery: Unremarkable. No occlusion or significant stenosis. No aneurysm. IMPRESSION: No large vessel occlusion, significant stenosis, aneurysm or vascular malformation. Communications: Call Doctor Stroke Electronically signed by: Trenton Wayne M.D. 10/16/22 06:54 AM Neck CTA 10/16/22 06:05 CR Exam(s): CTA NECK With Contrast IV Amt: 106 ml EXAM: CT Angiography Neck With Intravenous Contrast CLINICAL HISTORY: Acute TECHNIQUE: Routine carotid CT angiography protocol was performed with intravenous contrast. NASCET criteria using the distal ICAs for comparison were used for evaluation of stenoses. CTDI is 37.61 mGy and DLP is 624.41 mGy-cm. Automated exposure control was utilized for the study. A dose lowering technique was utilized adhering to the principles of ALARA. MIP reconstructed images were created and reviewed. CONTRAST: Patient received 106 ml of IV contrast COMPARISON: None. FINDINGS: VASCULATURE: Right common carotid artery: Unremarkable. No occlusion or significant stenosis. No dissection. Right internal carotid artery: Unremarkable. Extracranial segment is patent with no occlusion or significant stenosis. No dissection. Right external carotid artery: Unremarkable. No occlusion. Right vertebral artery: Unremarkable. No occlusion or significant stenosis. No dissection. Left common carotid artery: Unremarkable. No occlusion or significant stenosis. No dissection. Left internal carotid artery: Unremarkable. Extracranial segment is patent with no occlusion or significant stenosis. No dissection. Left external carotid artery: Unremarkable. No occlusion. Left vertebral artery: Unremarkable. No occlusion or significant stenosis. No dissection. NECK: Bones/joints: Unremarkable. Soft tissues: Unremarkable. Lung apices: Clear. Pleural space: There is small right-sided pleural effusion. CAROTID STENOSIS REFERENCE USING NASCET CRITERIA: % ICA stenosis = (1 - narrowest ICA diameter/diameter of distal cervical ICA) x 100. Mild - <50% stenosis. Moderate - 50-69% stenosis. Severe - 70-94% stenosis. Near occlusion - 95-99% stenosis. Occluded - 100% stenosis. IMPRESSION: No evidence of hemodynamically significant carotid stenosis Level Communications: Call Doctor Stroke Electronically signed by: Fito Kennedy MD 10/16/22 07:03 AM Case discussed with [facility] [place] stroke specialist, Dr. Ricardo. Thrombolytic therapy contraindicated with patient Eliquis Rx for PE. Antiplatelet Rx reasonable for stroke prophylaxis. Plavix chosen given patient reluctance to take aspirin citing past interaction with her psych medications. 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 Transfer patient to [facility] telemetry.
--- NOTE | 2022-10-16 06:53 | CT Scan Report ---
Exam(s): CT HEAD Without Contrast EXAM: CT Head Without Intravenous Contrast CLINICAL HISTORY: Reason for exam: stroke alert. TECHNIQUE: Axial computed tomography images of the head/brain without intravenous contrast. CTDI is 37.61 mGy and DLP is 624.41 mGy-cm. Automated exposure control was utilized for the study. A dose lowering technique was utilized adhering to the principles of ALARA. COMPARISON: CT head performed 10/12/2017 FINDINGS: No acute intracranial hemorrhage, major vascular territory infarct or midline shift. Stable right frontal approach ventricular catheter with tip in stable location. Ventricles are completely decompressed/slitlike unchanged from prior. 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 Cerebellar tonsils are low lying. No acute calvarial fracture. Bilateral lens replacements noted. The visualized paranasal sinuses and mastoid air cells clear. IMPRESSION: No acute intracranial process or significant change from 10/12/2017. If persistent clinical concern for acute stroke, MRI could further evaluate. Stable chronic findings as detailed above. Communications: Call Doctor Stroke Electronically signed by: Trenton Wayne M.D. 10/16/22 06:52 AM
[2022-10-16 06:55] LABS: Anion Gap 7 (3-11); BUN Creatinine Ratio 35.1 (10-20); Blood Urea Nitrogen 13 mg/dl (6-23); Calcium 8.7 mg/dl (8.6-10.3); Carbon Dioxide 29 mmol/L (21-32); Chloride 99 mmol/L (98-107); Creatinine Clr Calc Pharmacy 239.8 ml/min; Est GFR (African American) > 150.0 ml/min; Est GFR (Non-African American) 138.5 ml/min; Glucose 300 mg/dl (70-99(Fasting)); Magnesium 1.6 mg/dl (1.7-2.4); Potassium 3.4 mmol/L (3.5-5.1); Sodium 135 mmol/L (136-145)
--- NOTE | 2022-10-16 06:55 | CT Scan Report ---
Exam(s): CTA HEAD With Contrast IV Amt: 106 ml EXAM: CT Angiography Head With Intravenous Contrast CLINICAL HISTORY: Reason for exam: stroke alert. TECHNIQUE: Axial computed tomographic angiography images of the head with intravenous contrast. CTDI is 37.61 mGy and DLP is 624.41 mGy-cm. Automated exposure control was utilized for the study. A dose lowering technique was utilized adhering to the principles of ALARA. MIP reconstructed images were created and reviewed. CONTRAST: Patient received 106 ml of IV contrast COMPARISON: Concurrent CT head. FINDINGS: Right internal carotid artery: No acute findings. Intracranial segment is patent with no significant stenosis. No aneurysm. Right anterior cerebral artery: Unremarkable. No occlusion or significant stenosis. No aneurysm. Right middle cerebral artery: Unremarkable. No occlusion or significant stenosis. No aneurysm. Right posterior cerebral artery: Unremarkable. No occlusion or significant stenosis. No aneurysm. Right vertebral artery: Unremarkable as visualized. Left internal carotid artery: No acute findings. Intracranial segment is patent with no significant stenosis. No aneurysm. Left anterior cerebral artery: Unremarkable. No occlusion or significant stenosis. No aneurysm. Left middle cerebral artery: Unremarkable. No occlusion or significant stenosis. No aneurysm. Left posterior cerebral artery: Unremarkable. No occlusion or significant stenosis. No aneurysm. Left vertebral artery: Unremarkable as visualized. Basilar artery: Unremarkable. No occlusion or significant stenosis. No aneurysm. IMPRESSION: No large vessel occlusion, significant stenosis, aneurysm or vascular malformation. Communications: Call Doctor Stroke Electronically signed by: Trenton Wayne M.D. 10/16/22 06:54 AM
[2022-10-16 06:57] LABS: Basophils # (auto) 0.03 K/uL (0-0.2); Basophils % (auto) 0.6 %; Eosinophils # (auto) 0.18 K/uL (0-0.50); Eosinophils % (auto) 3.4 %; Hematocrit (blood only) 38.3 % (37.0-47.0); Hemoglobin 12.1 g/dl (12.0-16.0); Immature Granulocytes # (auto) 0.01 K/uL (0.01-0.20); Immature Granulocytes % (auto) 0.2 %; Lymphocytes # (auto) 1.56 K/uL (1.2-3.4); Lymphocytes % (auto) 29.6 %; Mean Corpuscular Hemoglobin 30.1 pg (25.0-34.0); Mean Corpuscular Hgb Conc 31.6 g/dL (32.0-36.0); Mean Corpuscular Volume 95.3 fL (80.0-100.0); Monocytes # (auto) 0.56 K/uL (0.11-0.59); Monocytes % (auto) 10.6 %; Neutrophils # (auto) 2.93 K/uL (1.40-6.50); Neutrophils % (auto) 55.6 %; Platelet Count 220 K/uL (130-400); RDW Coefficient of Variation 18.2 % (11.5-14.5); RDW Standard Deviation 64.2 fL (36.4-46.3); Red Blood Count 4.02 M/uL (4.20-5.40); White Blood Count 5.27 K/ul (4.8-10.8)
[2022-10-16] MEDS ORDERED: POTASSIUM CHLORIDE CRTAB 20 MEQ TABCR PO STA (07:02)
--- NOTE | 2022-10-16 07:04 | CT Scan Report ---
Exam(s): CTA NECK With Contrast IV Amt: 106 ml EXAM: CT Angiography Neck With Intravenous Contrast CLINICAL HISTORY: Acute TECHNIQUE: Routine carotid CT angiography protocol was performed with intravenous contrast. NASCET criteria using the distal ICAs for comparison were used for evaluation of stenoses. CTDI is 37.61 mGy and DLP is 624.41 mGy-cm. Automated exposure control was utilized for the study. A dose lowering technique was utilized adhering to the principles of ALARA. MIP reconstructed images were created and reviewed. CONTRAST: Patient received 106 ml of IV contrast COMPARISON: None. FINDINGS: VASCULATURE: Right common carotid artery: Unremarkable. No occlusion or significant stenosis. No dissection. Right internal carotid artery: Unremarkable. Extracranial segment is patent with no occlusion or significant stenosis. No dissection. Right external carotid artery: Unremarkable. No occlusion. Right vertebral artery: Unremarkable. No occlusion or significant stenosis. No dissection. Left common carotid artery: Unremarkable. No occlusion or significant stenosis. No dissection. Left internal carotid artery: Unremarkable. Extracranial segment is patent with no occlusion or significant stenosis. No dissection. Left external carotid artery: Unremarkable. No occlusion. Left vertebral artery: Unremarkable. No occlusion or significant stenosis. No dissection. NECK: Bones/joints: Unremarkable. Soft tissues: Unremarkable. Lung apices: Clear. Pleural space: There is small right-sided pleural effusion. CAROTID STENOSIS REFERENCE USING NASCET CRITERIA: % ICA stenosis = (1 - narrowest ICA diameter/diameter of distal cervical ICA) x 100. Mild - <50% stenosis. Moderate - 50-69% stenosis. Severe - 70-94% stenosis. Near occlusion - 95-99% stenosis. Occluded - 100% stenosis. IMPRESSION: No evidence of hemodynamically significant carotid stenosis Communications: Call Doctor Stroke Electronically signed by: Fito Kennedy MD 10/16/22 07:03 AM
[2022-10-16] MEDS: MAGNESIUM SULFATE / D5W 1 GM/100 ML BAG IV SCH ×2 (07:10→10:34)
[2022-10-16] MEDS ORDERED: NSS + 20MEQ KCL 20 MEQ/1,000 ML BAG IV ONE (07:24)
[2022-10-16] MEDS ORDERED: CLOPIDOGREL BISULFATE 75 MG TAB PO ONE (07:30)
[2022-10-16 07:40] LABS: Partial Thromboplastin Ratio 1.9
[2022-10-16 07:41] LABS: Partial Thromboplastin Time 54.6 Seconds (21.0-31.0)
--- NOTE | 2022-10-16 08:00 | Hospitalist Progress Note ---
Date of Service October 16, 2022 Assessment & Plan (1) Bilateral flank pain: (2) MRSA bacteremia: (3) Vulvar edema: (4) Frequent urinary tract infections: (5) Insulin-requiring or dependent type II diabetes mellitus: (6) Neurogenic bladder: (7) Spina bifida: (8) Sleep apnea: Plan This is a 37yo F with a PMH of spina bifida, bilateral below-knee amputation due to MRSA infection, wheelchair bound, diabetes type 2, on insulin, morbid obesity, obstructive sleep apnea, hypothyroidism, depression, bipolar disorder, status post MEDICAL AUDITOR shunt, status post colostomy and urostomy, history of multiple drug resistants recurrent UTI, history of PE, on Eliquis, chronic posttraumatic stress disorder, generalized anxiety disorder, eating disorder, ADHD, history of asthma who presents with flank pain. Bilateral flank pain Recent MRSA bacteremia, Morganella UTI Per ID, discharged on IV Aztreonam (completed on 10/06) and Dapto (scheduled through October 19) Recurrent flank pain for 24hrs after previously feeling better - admitting team discussed abx option with pharmacy and started meropenem to cover pseudomonas, continue IV Dapto Follow urine, blood cultures Will need ID consult once cultures result Right labial cellulitis 09/21 Vulva culture growing Pseudomonas, MRSA Treated with Diflucan for 2 doses, discharged on Invanz, Dapto Continue abx as above Appreciate [employer] input Poorly controlled DM II HbA1c 7.9 Recently started on insulin pump, reports difficulty controlling bsg at home with bsg >600 x 1 week In ER BSG 496 and was given IV insulin, blood glc still not controlled Glycemic pharmacy consulted certified adapted physical educator consulted for pump Elevated lactic acid -> resolved In setting of hyperglycemia. Initially 2.2 -> 2.0 on repeat Pseudohyponatremia 2/2 hyperglycemia. Corrected sodium within range Stroke alert - this AM d/t R-sided numbness - CT/A head and neck negative - per processor solid propellant's conversation w/ stroke neurologist - recommend to repeat CT head in 24 hrs and add plavix (pt is already on eliquis) - inpt neurology consulted - consider resuming statin (on hold d/t daptomycin), obtain ck level - numbness now resolved Hypertension Continue atenolol and Lasix Obstructive sleep apnea Obesity hypoventilation syndrome On BiPAP at night Hypothyroidism on levothyroxine Hyperlipidemia Hold Lipitor while on daptomycin Chronic hypoxic hypercarbic respiratory failure Continue BiPAP, supplemental oxygen Bipolar disorder Depression Continue home medications. H/O spina bifida S/P ventriculoperitoneal shunt Chronic migraines Continue home medications. Morbid obesity BMI 47 H/O PE Continue Eliquis DVT Ppx: Eliquis Code status: FULL PCP: Dr. Clemons Dispo: med/tele Admission and Anticipated Discharge Date Admission Date: October 15, 2022 Subjective Pt seen in follow up of flank pain ? UTI, stroke alert this AM - R sided numbness CT/ A head and neck obtained and negative, per processor solid propellant's discussion w/ stroke neurologist - repeat CT head in 24 hrs, add plavix Neurology also consulted inpt here Currently laying in bed, in no acute distress. Says that her symptoms of numbness are pretty much resolved. No fevers chills chest pain shortness of breath no abdominal pain Reports flank pain, not much improved since admission Hyperglycemia, uncontrolled diabetes, per patient and her mom issues with her pump as outpatient Review of Systems Review of Systems: All systems reviewed & are unremarkable except as noted in Subjective Physical Exam Physical Exam: General: Morbidly obese young F, in NAD HEENT: EOMI, PERRL, MMM Chest: Clear breath sounds bilaterally, no wheezes or crackles CVS: Regular rate and rhythm, normal heart sounds, no murmur Abdomen: Soft, non tender, not distended, normal bowel sounds. Colostomy with stool; urostomy with clear urine in bag Neuro: Awake, alert, oriented, conversing well Extremities: Bilateral BKA : Mild CVA tenderness, + labial erythema Results & Data Results & Data Vital Signs (Past 12 Hours) Vital Signs Temp Pulse Pulse Resp BP BP Pulse Ox 10/16/22 07:15 80 18 95 10/16/22 07:10 78 20 93 10/16/22 07:05 77 16 97 10/16/22 07:02 111/72 10/16/22 07:02 79 16 91 10/16/22 07:00 77 16 96 10/16/22 06:58 77 13 96 10/16/22 05:52 36.5 C 81 16 115/76 93 10/15/22 22:18 83 18 95 O2 Del Method O2 Flow Rate 10/16/22 07:15 10/16/22 07:10 10/16/22 07:05 10/16/22 07:02 10/16/22 07:02 10/16/22 07:00 Room Air 10/16/22 06:58 Room Air 10/16/22 05:52 Room Air 10/15/22 22:18 Oxymask 3 Laboratory Results 10/16/22 10/16/22 10/16/22 Range/Units 14:18 11:49 08:45 WBC (4.8-10.8) K/ul RBC (4.20-5.40) M/uL Hgb (12.0-16.0) g/dl Hct (37.0-47.0) % MCV (80.0-100.0) fL MCH (25.0-34.0) pg MCHC (32.0-36.0) g/dL RDW Std Deviation (36.4-46.3) fL RDW Coeff of Neda (11.5-14.5) % Plt Count (130-400) K/uL MPV (9.4-12.4) fL Immature Gran % (Auto) % Neut % (Auto) % Lymph % (Auto) % Perry % (Auto) % Eos % (Auto) % Baso % (Auto) % Neut # (Auto) (1.40-6.50) K/uL Lymph # (Auto) (1.2-3.4) K/uL Perry # (Auto) (0.11-0.59) K/uL Eos # (Auto) (0-0.50) K/uL Baso # (Auto) (0-0.2) K/uL Immature Gran # (Auto) (0.01-0.20) K/uL APTT (21.0-31.0) Seconds PTT Ratio Sodium (136-145) mmol/L Potassium (3.5-5.1) mmol/L Chloride (98-107) mmol/L Carbon Dioxide (21-32) mmol/L Anion Gap (3-11) BUN (6-23) mg/dl Creatinine (0.6-1.2) mg/dl Est Cr Clr Drug Dosing Est GFR ( Amer) ml/min Est GFR (Non-Af Amer) ml/min BUN/Creatinine Ratio (10-20) Glucose (70-99(Fasting)) mg/dl POC Glucose 350 H* 430 H* 329 H* (70-99) mg/dl Lactate (0.4-2.0) mmol/L Calcium (8.6-10.3) mg/dl Magnesium (1.7-2.4) mg/dl Total Bilirubin (0.2-1.0) mg/dl AST (13-39) U/L ALT (7-52) U/L Alkaline Phosphatase (34-104) U/L Total Protein (6.0-8.3) gm/dl Albumin (3.4-5.0) gm/dl Globulin (2.5-4.0) gm/dl Albumin/Globulin Ratio (0.9-2) Lipase (11-82) U/L Urine Color Urine Appearance (Clear) Urine pH (4.5-7.5) Ur Specific [place] (1.000-1.030) Urine Protein (Negative) Urine Glucose (UA) (Negative) Urine Ketones (Negative) Urine Blood (Negative) Urine Nitrite (Negative) Urine Bilirubin (Negative) Urine Urobilinogen (Negative) Ur Leukocyte Esterase (Negative) Urine WBC (Auto) (0-5) /hpf Urine RBC (Auto) (0-4) /hpf U Hyaline Cast (Auto) (0-5) /lpf U Epithel Cells (Auto) (0-5) /lpf Urine Bacteria (Auto) (Negative) SARS-CoV-2, RNA, NAAT (NEGATIVE) 10/16/22 10/16/22 10/16/22 Range/Units 06:15 06:15 06:09 WBC 5.27 (4.8-10.8) K/ul RBC 4.02 L (4.20-5.40) M/uL Hgb 12.1 (12.0-16.0) g/dl Hct 38.3 (37.0-47.0) % MCV 95.3 (80.0-100.0) fL MCH 30.1 (25.0-34.0) pg MCHC 31.6 L (32.0-36.0) g/dL RDW Std Deviation 64.2 H (36.4-46.3) fL RDW Coeff of Neda 18.2 H (11.5-14.5) % Plt Count 220 (130-400) K/uL MPV 11.0 (9.4-12.4) fL Immature Gran % (Auto) 0.2 % Neut % (Auto) 55.6 % Lymph % (Auto) 29.6 % Perry % (Auto) 10.6 % Eos % (Auto) 3.4 % Baso % (Auto) 0.6 % Neut # (Auto) 2.93 (1.40-6.50) K/uL Lymph # (Auto) 1.56 (1.2-3.4) K/uL Perry # (Auto) 0.56 (0.11-0.59) K/uL Eos # (Auto) 0.18 (0-0.50) K/uL Baso # (Auto) 0.03 (0-0.2) K/uL Immature Gran # (Auto) 0.01 (0.01-0.20) K/uL APTT 54.6 H* (21.0-31.0) Seconds PTT Ratio 1.9 Sodium 135 L (136-145) mmol/L Potassium 3.4 L (3.5-5.1) mmol/L Chloride 99 (98-107) mmol/L Carbon Dioxide 29 (21-32) mmol/L Anion Gap 7 (3-11) BUN 13 (6-23) mg/dl Creatinine 0.37 L (0.6-1.2) mg/dl Est Cr Clr Drug Dosing 239.8 Est GFR ( Amer) > 150.0 ml/min Est GFR (Non-Af Amer) 138.5 ml/min BUN/Creatinine Ratio 35.1 H (10-20) Glucose 300 H (70-99(Fasting)) mg/dl POC Glucose (70-99) mg/dl Lactate (0.4-2.0) mmol/L Calcium 8.7 (8.6-10.3) mg/dl Magnesium 1.6 L (1.7-2.4) mg/dl Total Bilirubin (0.2-1.0) mg/dl AST (13-39) U/L ALT (7-52) U/L Alkaline Phosphatase (34-104) U/L Total Protein (6.0-8.3) gm/dl Albumin (3.4-5.0) gm/dl Globulin (2.5-4.0) gm/dl Albumin/Globulin Ratio (0.9-2) Lipase (11-82) U/L Urine Color Urine Appearance (Clear) Urine pH (4.5-7.5) Ur Specific [place] (1.000-1.030) Urine Protein (Negative) Urine Glucose (UA) (Negative) Urine Ketones (Negative) Urine Blood (Negative) Urine Nitrite (Negative) Urine Bilirubin (Negative) Urine Urobilinogen (Negative) Ur Leukocyte Esterase (Negative) Urine WBC (Auto) (0-5) /hpf Urine RBC (Auto) (0-4) /hpf U Hyaline Cast (Auto) (0-5) /lpf U Epithel Cells (Auto) (0-5) /lpf Urine Bacteria (Auto) (Negative) SARS-CoV-2, RNA, NAAT (NEGATIVE) 10/16/22 10/15/22 10/15/22 Range/Units 05:50 20:29 17:59 WBC (4.8-10.8) K/ul RBC (4.20-5.40) M/uL Hgb (12.0-16.0) g/dl Hct (37.0-47.0) % MCV (80.0-100.0) fL MCH (25.0-34.0) pg MCHC (32.0-36.0) g/dL RDW Std Deviation (36.4-46.3) fL RDW Coeff of Neda (11.5-14.5) % Plt Count (130-400) K/uL MPV (9.4-12.4) fL Immature Gran % (Auto) % Neut % (Auto) % Lymph % (Auto) % Perry % (Auto) % Eos % (Auto) % Baso % (Auto) % Neut # (Auto) (1.40-6.50) K/uL Lymph # (Auto) (1.2-3.4) K/uL Perry # (Auto) (0.11-0.59) K/uL Eos # (Auto) (0-0.50) K/uL Baso # (Auto) (0-0.2) K/uL Immature Gran # (Auto) (0.01-0.20) K/uL APTT (21.0-31.0) Seconds PTT Ratio Sodium (136-145) mmol/L Potassium (3.5-5.1) mmol/L Chloride (98-107) mmol/L Carbon Dioxide (21-32) mmol/L Anion Gap (3-11) BUN (6-23) mg/dl Creatinine (0.6-1.2) mg/dl Est Cr Clr Drug Dosing Est GFR ( Amer) ml/min Est GFR (Non-Af Amer) ml/min BUN/Creatinine Ratio (10-20) Glucose (70-99(Fasting)) mg/dl POC Glucose 266 H 365 H* 392 H* (70-99) mg/dl Lactate (0.4-2.0) mmol/L Calcium (8.6-10.3) mg/dl Magnesium (1.7-2.4) mg/dl Total Bilirubin (0.2-1.0) mg/dl AST (13-39) U/L ALT (7-52) U/L Alkaline Phosphatase (34-104) U/L Total Protein (6.0-8.3) gm/dl Albumin (3.4-5.0) gm/dl Globulin (2.5-4.0) gm/dl Albumin/Globulin Ratio (0.9-2) Lipase (11-82) U/L Urine Color Urine Appearance (Clear) Urine pH (4.5-7.5) Ur Specific [place] (1.000-1.030) Urine Protein (Negative) Urine Glucose (UA) (Negative) Urine Ketones (Negative) Urine Blood (Negative) Urine Nitrite (Negative) Urine Bilirubin (Negative) Urine Urobilinogen (Negative) Ur Leukocyte Esterase (Negative) Urine WBC (Auto) (0-5) /hpf Urine RBC (Auto) (0-4) /hpf U Hyaline Cast (Auto) (0-5) /lpf U Epithel Cells (Auto) (0-5) /lpf Urine Bacteria (Auto) (Negative) SARS-CoV-2, RNA, NAAT (NEGATIVE) 10/15/22 10/15/22 10/15/22 Range/Units 17:50 15:49 15:48 WBC (4.8-10.8) K/ul RBC (4.20-5.40) M/uL Hgb (12.0-16.0) g/dl Hct (37.0-47.0) % MCV (80.0-100.0) fL MCH (25.0-34.0) pg MCHC (32.0-36.0) g/dL RDW Std Deviation (36.4-46.3) fL RDW Coeff of Neda (11.5-14.5) % Plt Count (130-400) K/uL MPV (9.4-12.4) fL Immature Gran % (Auto) % Neut % (Auto) % Lymph % (Auto) % Perry % (Auto) % Eos % (Auto) % Baso % (Auto) % Neut # (Auto) (1.40-6.50) K/uL Lymph # (Auto) (1.2-3.4) K/uL Perry # (Auto) (0.11-0.59) K/uL Eos # (Auto) (0-0.50) K/uL Baso # (Auto) (0-0.2) K/uL Immature Gran # (Auto) (0.01-0.20) K/uL APTT (21.0-31.0) Seconds PTT Ratio Sodium (136-145) mmol/L Potassium (3.5-5.1) mmol/L Chloride (98-107) mmol/L Carbon Dioxide (21-32) mmol/L Anion Gap (3-11) BUN (6-23) mg/dl Creatinine (0.6-1.2) mg/dl Est Cr Clr Drug Dosing Est GFR ( Amer) ml/min Est GFR (Non-Af Amer) ml/min BUN/Creatinine Ratio (10-20) Glucose (70-99(Fasting)) mg/dl POC Glucose (70-99) mg/dl Lactate 2.0 (0.4-2.0) mmol/L Calcium (8.6-10.3) mg/dl Magnesium (1.7-2.4) mg/dl Total Bilirubin (0.2-1.0) mg/dl AST (13-39) U/L ALT (7-52) U/L Alkaline Phosphatase (34-104) U/L Total Protein (6.0-8.3) gm/dl Albumin (3.4-5.0) gm/dl Globulin (2.5-4.0) gm/dl Albumin/Globulin Ratio (0.9-2) Lipase (11-82) U/L Urine Color Yellow Urine Appearance Clear (Clear) Urine pH 6.5 (4.5-7.5) Ur Specific [place] 1.014 (1.000-1.030) Urine Protein Negative (Negative) Urine Glucose (UA) 3+ H (Negative) Urine Ketones Negative (Negative) Urine Blood Trace H (Negative) Urine Nitrite Negative (Negative) Urine Bilirubin Negative (Negative) Urine Urobilinogen Negative (Negative) Ur Leukocyte Esterase Trace H (Negative) Urine WBC (Auto) 10-30 H (0-5) /hpf Urine RBC (Auto) 0-4 (0-4) /hpf U Hyaline Cast (Auto) 1-5 (0-5) /lpf U Epithel Cells (Auto) 10-20 H (0-5) /lpf Urine Bacteria (Auto) Negative (Negative) SARS-CoV-2, RNA, NAAT NEGATIVE (NEGATIVE) 10/15/22 10/15/22 10/15/22 Range/Units 15:18 15:17 15:17 WBC 6.21 (4.8-10.8) K/ul RBC 4.05 L (4.20-5.40) M/uL Hgb 12.4 (12.0-16.0) g/dl Hct 39.3 (37.0-47.0) % MCV 97.0 (80.0-100.0) fL MCH 30.6 (25.0-34.0) pg MCHC 31.6 L (32.0-36.0) g/dL RDW Std Deviation 66.4 H (36.4-46.3) fL RDW Coeff of Neda 18.6 H (11.5-14.5) % Plt Count 226 (130-400) K/uL MPV 11.0 (9.4-12.4) fL Immature Gran % (Auto) 0.2 % Neut % (Auto) 65.3 % Lymph % (Auto) 25.1 % Perry % (Auto) 6.6 % Eos % (Auto) 2.3 % Baso % (Auto) 0.5 % Neut # (Auto) 4.06 (1.40-6.50) K/uL Lymph # (Auto) 1.56 (1.2-3.4) K/uL Perry # (Auto) 0.41 (0.11-0.59) K/uL Eos # (Auto) 0.14 (0-0.50) K/uL Baso # (Auto) 0.03 (0-0.2) K/uL Immature Gran # (Auto) 0.01 (0.01-0.20) K/uL APTT (21.0-31.0) Seconds PTT Ratio Sodium 131 L (136-145) mmol/L Potassium 3.6 (3.5-5.1) mmol/L Chloride 96 L (98-107) mmol/L Carbon Dioxide 23 (21-32) mmol/L Anion Gap 12 H (3-11) BUN 19 (6-23) mg/dl Creatinine 0.48 L (0.6-1.2) mg/dl Est Cr Clr Drug Dosing Not Reportable Est GFR ( Amer) 147.3 ml/min Est GFR (Non-Af Amer) 127.1 ml/min BUN/Creatinine Ratio 39.6 H (10-20) Glucose 496 H* (70-99(Fasting)) mg/dl POC Glucose (70-99) mg/dl Lactate 2.2 H* (0.4-2.0) mmol/L Calcium 8.8 (8.6-10.3) mg/dl Magnesium 1.7 (1.7-2.4) mg/dl Total Bilirubin 0.4 (0.2-1.0) mg/dl AST 29 (13-39) U/L ALT 33 (7-52) U/L Alkaline Phosphatase 87 (34-104) U/L Total Protein 7.8 (6.0-8.3) gm/dl Albumin 3.7 (3.4-5.0) gm/dl Globulin 4.1 H (2.5-4.0) gm/dl Albumin/Globulin Ratio 0.9 (0.9-2) Lipase 52 (11-82) U/L Urine Color Urine Appearance (Clear) Urine pH (4.5-7.5) Ur Specific [place] (1.000-1.030) Urine Protein (Negative) Urine Glucose (UA) (Negative) Urine Ketones (Negative) Urine Blood (Negative) Urine Nitrite (Negative) Urine Bilirubin (Negative) Urine Urobilinogen (Negative) Ur Leukocyte Esterase (Negative) Urine WBC (Auto) (0-5) /hpf Urine RBC (Auto) (0-4) /hpf U Hyaline Cast (Auto) (0-5) /lpf U Epithel Cells (Auto) (0-5) /lpf Urine Bacteria (Auto) (Negative) SARS-CoV-2, RNA, NAAT (NEGATIVE) Medications Administered Current Inpatient Medications Acetaminophen (Acetaminophen 325 Mg Tab) 650 mg PO Q4H PRN PRN Reason: Pain or Fever Stop: 11/14/22 20:23 Last Admin: 10/15/22 21:25 Dose: 650 mg Albuterol (Albuterol Hfa 8 Gm Inhaler) 2 puffs INH [facility] Stop: 11/14/22 20:59 Last Admin: 10/15/22 22:18 Dose: 2 puffs Albuterol (Albuterol Hfa 8 Gm Inhaler) 2 puffs INH Q6H PRN PRN Reason: Shortness Of Breath Or Wheezing Stop: 11/14/22 20:23 Apixaban (Apixaban 5 Mg Tablet) 5 mg PO [facility] Stop: 11/14/22 20:59 Last Admin: 10/15/22 21:28 Dose: 5 mg Atenolol (Atenolol 50 Mg Tablet) 100 mg PO [facility] Stop: 11/14/22 20:59 Last Admin: 10/15/22 21:29 Dose: 100 mg Brexpiprazole (Pt's Own Med: Brexpiprazole 4 Mg Tab) 4 mg PO [facility] Stop: 11/15/22 08:59 Calamine/Phenol (Menthol-Zinc Oxide 360 Appln/120 Gm Tube) 1 appln EXT UD PRN PRN Reason: UNDER XEROFOAM TO BUTTOCKS Stop: 11/14/22 20:23 Cetirizine HCl (Cetirizine Hcl 10 Mg Tablet) 10 mg PO DAILY PRN PRN Reason: PRIOR TO ANTIBIOTICS Stop: 11/14/22 20:23 Clonazepam (Clonazepam 0.5 Mg Tab) 0.5 mg PO [facility] Stop: 11/14/22 20:59 Last Admin: 10/15/22 22:03 Dose: 0.5 mg Clopidogrel Bisulfate (Clopidogrel Bisulfate 75 Mg Tab) 75 mg PO [facility] Stop: 11/16/22 08:59 Clotrimazole (Clotrimazole 1% Cr 15 Gm Tube) 1 appln TOP UD PRN PRN Reason: BUTTOCKS WHEN SOILED. Stop: 11/14/22 20:23 Cyanocobalamin (Cyanocobalamin (B-12) 500 Mcg Tablet) 1,000 mcg PO DAILY [facility] Stop: 11/15/22 08:59 Cyclobenzaprine HCl (Cyclobenzaprine Hcl 10 Mg Tab) 5 mg PO TID PRN PRN Reason: muscle spasm Stop: 11/14/22 20:43 Dextrose (Dextrose 50% 50 Ml Syringe) 25 - 50 ml IV UD PRN; Protocol PRN Reason: Hypoglycemia Protocol Stop: 11/14/22 20:23 Dicyclomine HCl (Dicyclomine Hcl 10 Mg Cap) 20 mg PO BIDM [facility] Stop: 11/15/22 07:59 Divalproex Sodium (Divalproex Extended Release 500 Mg Tab) 2,000 mg PO QAM [facility] Stop: 11/15/22 08:59 Famotidine (Famotidine 40 Mg Tablet) 40 mg PO HS [facility] Stop: 11/14/22 20:59 Last Admin: 10/15/22 21:27 Dose: 40 mg Ferrous Sulfate (Ferrous Sulfate 325 Mg Tab) 325 mg PO BIDM [facility] Stop: 11/15/22 07:59 Fluticasone/Vilanterol (Fluticasone/Vilanterol 100/25mcg 14 Puffs/Inhaler) 1 puffs INH QAM [facility] Stop: 11/15/22 08:59 Furosemide (Furosemide 40 Mg Tab) 40 mg PO QDD [facility] Stop: 11/15/22 16:29 Glucagon (Glucagon For Inj 1 Mg Vial) 1 mg SQ UD PRN; Protocol PRN Reason: Hypoglycemia Protocol Stop: 11/14/22 20:23 Glucose (Glucose 10 Tab/Tube) 4 - 8 tab PO UD PRN; Protocol PRN Reason: Hypoglycemia Treatment Stop: 11/14/22 20:23 Glucose (Glucose 40% Gel 15 Gm Tube) 15 - 30 gm PO UD PRN; Protocol PRN Reason: Hypoglycemia Protocol Stop: 11/14/22 20:23 Heparin Sodium (Porcine) (Heparin 100 Unit/Ml 5ml Flush) 5 ml FLUSH PRN PRN PRN Reason: Flush Stop: 11/14/22 21:16 Last Admin: 10/16/22 01:12 Dose: 5 ml Hydroxyzine HCl (Hydroxyzine Hcl 25 Mg Tab) 25 mg PO QID PRN PRN Reason: Anxiety Stop: 11/15/22 02:03 Last Admin: 10/16/22 02:14 Dose: 25 mg Meropenem 500 mg/ Syringe 10 mls @ 2 mls/min IV Q6H [facility]; Protocol Stop: 10/25/22 19:29 Last Admin: 10/16/22 01:12 Dose: 2 mls/min Daptomycin 600 mg/ Syringe 12 mls @ 6 mls/min IV DAILY [facility]; Protocol Stop: 10/19/22 23:59 Magnesium Sulfate/Dextrose (Magnesium Sulfate / D5w) 1 gm in 100 mls @ 50 mls/hr IV Q2H [facility] Stop: 10/16/22 11:14 Last Admin: 10/16/22 07:10 Dose: 50 mls/hr Potassium Chloride/Sodium Chloride (Normal Saline W/20 Meq Kcl) 20 meq in 1,000 mls @ 60 mls/hr IV .[id number]; Protocol Stop: 10/17/22 00:03 Insulin Aspart (Insulin Aspart Per Unit Charge) 0 units SC ACHS [facility] Stop: 11/14/22 20:23 Last Admin: 10/15/22 22:20 Dose: Not Given Insulin Glargine (Lantus Per Unit Charge) 35 units SQ HS [facility] Stop: 11/14/22 20:59 Last Admin: 10/15/22 22:03 Dose: 35 units Ketorolac Tromethamine (Ketorolac Tromethamine 15 Mg/Ml Vial) 15 mg IV Q6H PRN PRN Reason: Pain Stop: 10/17/22 18:36 Levalbuterol HCl (Levalbuterol Hcl 0.63 Mg/3 Ml Neb) 0.63 mg INH Q6H PRN; P rotocol PRN Reason: Shortness Of Breath Stop: 11/14/22 20:23 Levothyroxine Sodium (Levothyroxine Sodium 100 Mcg Tablet) 100 mcg PO DAILYBB [facility] Stop: 11/15/22 06:29 Last Admin: 10/16/22 05:38 Dose: 100 mcg Linaclotide (Linaclotide 145 Mcg Capsule) 290 mcg PO DAILYBB [facility] Stop: 11/15/22 06:29 Last Admin: 10/16/22 05:38 Dose: 290 mcg Loratadine (Loratadine 10 Mg Tab) 20 mg PO QAM [facility] Stop: 11/15/22 08:59 Magnesium Oxide (Magnesium Oxide 400 Mg Tab) 400 mg PO QDL [facility] Stop: 11/15/22 11:29 Miscellaneous (Carbohydrates For Hypoglycemia ) 15 - 30 gm PO UD PRN PRN Reason: Hypoglycemia Protocol Stop: 11/14/22 20:23 Miscellaneous (Loxapine: Order Awaiting Action) 1 each N/A QS [facility] Stop: 11/15/22 00:00 Last Admin: 10/15/22 23:01 Dose: Not Given Miscellaneous Information (Pharmacy Glycemic Mgmt Consult) 1 each N/A UD PRN; Protocol PRN Reason: Consult Stop: 11/15/22 02:06 Montelukast Sodium (Montelukast Sodium 10 Mg Tablet) 10 mg PO PM [facility] Stop: 11/14/22 20:59 Last Admin: 10/15/22 21:27 Dose: 10 mg Morphine Sulfate (Morphine Sulfate 4 Mg/Ml 1 Ml Carp\Vial) 4 mg IV Q6H PRN PRN Reason: Severe Pain (Scale 7, 8, 9,10) Stop: 10/29/22 18:36 Last Admin: 10/15/22 19:04 Dose: 4 mg Multivitamins/Minerals (Cerovite Adv Formula Tab) 1 tab PO QDL [facility] Stop: 11/15/22 11:29 Nystatin (Nystatin Cr 15 Gm Tube) 1 appln EXT BID PRN PRN Reason: Skin Irritation Stop: 11/14/22 20:23 Ondansetron HCl (Ondansetron Inj 2 Mg/Ml 2 Ml Vial) 4 mg IV Q6H PRN PRN Reason: Nausea Stop: 11/14/22 20:23 Last Admin: 10/15/22 21:25 Dose: 4 mg Pantoprazole Sodium (Pantoprazole 40 Mg Tab) 40 mg PO BID [facility] Stop: 11/14/22 20:59 Last Admin: 10/15/22 21:27 Dose: 40 mg Polyethylene Glycol (Polyethylene (Miralax) 17 Gm Pack) 17 gm PO DAILY PRN PRN Reason: Constipation Stop: 11/14/22 20:23 Sucralfate (Sucralfate 1 Gm Tab) 1 gm PO BID PRN PRN Reason: gastritis Stop: 11/14/22 20:23 Trazodone HCl (Trazodone Hcl 100 Mg Tab) 300 mg PO HS [facility] Stop: 11/14/22 20:59 Last Admin: 10/15/22 21:28 Dose: 300 mg Umeclidinium Treichlers (Umeclidinium Treichlers 62.5mcg/Blister 7 Puffs/Inhaler) 1 puffs INH QAM CATALINO Stop: 11/15/22 08:59 Venlafaxine HCl (Venlafaxine Hcl Xr 75 Mg Capxr) 75 mg PO QAM CATALINO Stop: 11/15/22 08:59 Venlafaxine HCl (Venlafaxine Hcl Xr 150 Mg Capxr) 150 mg PO QAM CATALINO Stop: 11/15/22 08:59 (8) Sleep apnea Sleep apnea type: obstructive Qualified Code(s): G47.33 - Obstructive sleep apnea (adult) (pediatric)
[2022-10-16] MEDS: ALBUTEROL HFA 8 GM INHALER INH SCH ×2 (08:02→19:32)
[2022-10-16] MEDS: BREXPIPRAZOLE 4 MG PO SCH (08:49)
[2022-10-16] MEDS: DICYCLOMINE HCL 10 MG CAP PO SCH ×2 (08:49→17:46)
[2022-10-16] MEDS: CYANOCOBALAMIN (B-12) 500 MCG TABLET PO SCH (08:49)
[2022-10-16] MEDS: APIXABAN 5 MG TABLET PO SCH ×2 (08:50→21:28)
[2022-10-16] MEDS: PANTOprazole 40 MG TAB PO SCH ×2 (08:50→21:32)
[2022-10-16] MEDS: VENLAFAXINE HCL XR 75 MG CAPXR PO SCH (08:50)
[2022-10-16] MEDS: FERROUS SULFATE 325 MG TAB PO SCH ×2 (08:50→17:46)
[2022-10-16] MEDS: VENLAFAXINE HCL XR 150 MG CAPXR PO SCH (08:50)
[2022-10-16] MEDS: DIVALPROEX EXTENDED RELEASE 500 MG TAB PO SCH (08:50)
[2022-10-16] MEDS: LORATADINE 10 MG TAB PO SCH (08:50)
[2022-10-16] MEDS: FLUTICASONE/VILANTEROL 100/25MCG 14 PUFFS/INHALER INH SCH (08:52)
[2022-10-16] MEDS: UMECLIDINIUM BROMIDE 62.5MCG/BLISTER 7 PUFFS/INHALER INH SCH (08:54)
[2022-10-16] MEDS ORDERED: DAPTOmycin 500 MG VIAL IV SCH (09:00)
[2022-10-16] MEDS ORDERED: LANTUS PER UNIT CHARGE SQ SCH (09:00)
[2022-10-16] MEDS: INSULIN ASPART PER UNIT CHARGE SC SCH ×5 (09:40→21:30)
[2022-10-16] MEDS: DAPTOmycin 600 MG in SYRINGE 0 ML IV SCH (10:42)
[2022-10-16] MEDS ORDERED: Nursing to Pharmacy Communication SCH (11:15)
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
[2022-10-16] MEDS ORDERED: INSULIN HUMAN REGULAR PER UNIT 10 UNITS in SYRINGE 9.9 ML IV ONE (12:15)
[2022-10-16] MEDS ORDERED: POTASSIUM CHLORIDE CRTAB 20 MEQ TABCR PO ONE (12:30)
[2022-10-16] MEDS: CEROVITE ADV FORMULA TAB PO SCH (13:06)
[2022-10-16] MEDS: [UNRECOGNIZED DRUG - OTHER] SCH (13:07)
[2022-10-16] MEDS: MAGNESIUM OXIDE 400 MG TAB PO SCH (13:07)
[2022-10-16] MEDS ORDERED: INSULIN ASPART PER UNIT CHARGE SC ONE (14:30)
--- NOTE | 2022-10-16 14:42 | Pharmacy Report ---
Pharmacy Glycemic Short Note 2 - Date of Service October 16, 2022 - Glycemic Short BSG Results (Last 24 hours): 10/15/22 10/15/22 10/15/22 15:17 17:59 20:29 Glucose 496 H* POC Glucose 392 H* 365 H* 10/16/22 10/16/22 10/16/22 05:50 06:15 08:45 Glucose 300 H POC Glucose 266 H 329 H* 10/16/22 11:49 Glucose POC Glucose 430 H* OUTPATIENT ANTIDIABETIC REGIMEN: * A1c = 7.9% * Novolog insulin pump * Basal: 1.3 units/hr * Correction factor: 20, Carb ratio: 5 ASSESSMENT: * Connie is a 37 yo poorly controlled T2DM with extensive past medical history who presented with flank pain and severe hyperglycemia. * Per H&P, patient reports recently starting on insulin pump and having difficulty controlling her BSG as an outpatient. On admission, she was converted to basal + bolus SQ insulin. * Fasting BSG of 329 mg/dL. An additional 10 units of Lantus was ordered and Novolog carb ratio was tightened. Unfortunately, due to stroke alert and patient being transferred, AM insulin was not administered until 10:30. She has received 35-90 units of basal insulin per day during previous admission (both on and off steroids) therefore very difficult to determine basal needs. * Lunch BSG of 430 mg/dL. Patient was ordered a 10 units IV regular insulin bolus with re-check in two hours. Plan discussed with provider. * Add overnight checks with coverage. PLAN FOR INPATIENT GLYCEMIC CONTROL: * Hold outpatient oral diabetes medications * Basal insulin * Lantus 10 units SQ this morning x 1 * Lantus 35-45-50 units SQ qHS * Bolus insulin * NovoLog per scale ACHS or Q6hrs while NPO * Goal Range: Low 110 mg/dL - High 140 mg/dL * Correction Factor: 10 mg/dL/unit * Nutritional / Prandial insulin per carb ratio of 1 unit per 3 grams CHO consumed
[2022-10-16] MEDS ORDERED: FUROSEMIDE 40 MG TAB PO SCH (16:30)
[2022-10-16] MEDS: LOXAPINE 5 MG PO PRN ×2 (16:32→21:34)
[2022-10-16] MEDS: CYCLOBENZAPRINE HCL 10 MG TAB PO PRN ×2 (17:38→21:33)
[2022-10-16] MEDS: ATENOLOL 25 MG TABLET PO SCH (21:29)
[2022-10-16] MEDS: clonazePAM 0.5 MG TAB PO SCH (21:30)
[2022-10-16] MEDS: FAMOTIDINE 40 MG TABLET PO SCH (21:30)
[2022-10-16] MEDS: LANTUS PER UNIT CHARGE SQ SCH (21:31)
[2022-10-16] MEDS: MONTELUKAST SODIUM 10 MG TABLET PO SCH (21:32)
[2022-10-16] MEDS: traZODone HCL 100 MG TAB PO SCH (21:33)
[2022-10-17] MEDS: INSULIN ASPART PER UNIT CHARGE SC SCH ×6 (01:39→21:17)
[2022-10-17] MEDS: MEROPENEM 500 MG in SYRINGE 0 ML IV SCH ×2 (04:57→08:39)
[2022-10-17] MEDS: LEVOTHYROXINE SODIUM 100 MCG TABLET PO SCH (06:23)
[2022-10-17] MEDS: LINACLOTIDE 145 MCG CAPSULE PO SCH (06:24)
--- NOTE | 2022-10-17 06:26 | Electrocardiogram Report ---
Test Reason : Blood Pressure : / mmHG Vent. Rate : 079 BPM Atrial Rate : 079 BPM P-R Int : 166 ms QRS Dur : 088 ms QT Int : 400 ms P-R-T Axes : 012 013 022 degrees QTc Int : 458 ms Poor data quality, interpretation may be adversely affected Normal sinus rhythm Nonspecific T wave abnormality Abnormal ECG When compared with ECG of 20-SEP-2022 01:34, No significant change was found Confirmed by Robin Andrea ([id number]) on 10/17/2022 6:25:54 AM Referred By: REFERRED SELF Confirmed By:Robin Andrea
[2022-10-17] MEDS: ALBUTEROL HFA 8 GM INHALER INH SCH ×2 (07:48→19:20)
--- NOTE | 2022-10-17 07:58 | CT Scan Report ---
CT SCAN OF THE BRAIN WITHOUT IV CONTRAST CLINICAL HISTORY: Strokelike symptoms. COMPARISON STUDY: CT of the brain dated 10/16/2022. TECHNIQUE: Unenhanced axial CT scan of the brain is performed from the vertex to the skull base. A d ose lowering technique was utilized adhering to the principles of ALARA. CT DOSE: 625.80 mGy.cm FINDINGS: Brain parenchyma: A right frontal approach ventriculostomy catheter is unchanged in position. The tip terminates in the anterior lateral ventricles. 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 Prosper ical volume loss in the right parieto-occipital region is unchanged. There is no hemorrhage, mass eff ect, or evidence of acute territorial ischemia by CT criteria. Benson-white matter differentiation is p reserved. No extra-axial fluid collection is seen. Ventricles, sulci, cisterns: Normal in configuration. Intracranial vasculature: The visualized intracranial vasculature at the skull base is normal in appe arance. Calvarium: Hydrocephalus is noted. There is a right frontal dianne hole. Chronic surgical defects are a gain seen in the left frontal and right occipital calvarium. No destructive calvarial lesion is seen. Sinuses and mastoids: The visualized paranasal sinuses are clear. The mastoid air cells are well pneu matized. Orbits: The bony orbits are grossly intact. There are bilateral ocular lens implants. IMPRESSION: 1. Chronic and postsurgical findings as above with no hemorrhage, mass effect, or evidence of acute t erritorial ischemia by CT criteria. No significant change from yesterday. 2. A ventriculostomy catheter is unchanged in position. There is no hydrocephalus. ACT 112: Negative or not required by law. Electronically signed by: Devin Dacosta M.D. 10/17/2022 7:56 AM
--- NOTE | 2022-10-17 08:05 | Hospitalist Progress Note ---
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 Bilateral flank pain Recent MRSA bacteremia, Morganella UTI Per ID, discharged on IV Aztreonam (completed on 10/06) and Dapto (scheduled through October 19) Recurrent flank pain for 24hrs after previously feeling better - admitting team discussed abx option with pharmacy and started meropenem to cover pseudomonas, continue IV Dapto 10/17 -discussed with pharmacist again this morning, she reports that Pseudomonas resistant to meropenem previously, switched to ceftazidime. Patient clinically improved. ID consulted. Follow urine, blood cultures Right labial cellulitis 09/21 Vulva culture growing Pseudomonas, MRSA Treated with Diflucan for 2 doses, discharged on Invanz, Dapto Continue abx as above Appreciate GETTER WELDER input Poorly controlled DM II HbA1c 7.9 Recently started on insulin pump, reports difficulty controlling bsg at home with bsg >600 x 1 week In ER BSG 496 and was given IV insulin, blood glc still not controlled Glycemic pharmacy consulted clinical informatics educator consulted for pump Elevated lactic acid -> resolved In setting of hyperglycemia. Initially 2.2 -> 2.0 on repeat Pseudohyponatremia 2/2 hyperglycemia. Corrected sodium within range Stroke alert - 514 AM d/t R-sided numbness - CT/A head and neck negative - per plywood patcher's conversation w/ stroke neurologist - recommend to repeat CT head in 24 hrs and add plavix (pt is already on eliquis) - CT head repeated - negative, also any symptoms of numbness resolved. - inpt neurology consulted - consider resuming statin (on hold d/t daptomycin), obtained ck level and <10, resume statin Hypertension Continue atenolol and Lasix Obstructive sleep apnea Obesity hypoventilation syndrome On BiPAP at night Hypothyroidism on levothyroxine Hyperlipidemia Hold Lipitor while on daptomycin Chronic hypoxic hypercarbic respiratory failure Continue BiPAP, supplemental oxygen Bipolar disorder Depression Continue home medications. H/O spina bifida S/P ventriculoperitoneal shunt Chronic migraines Continue home medications. Morbid obesity BMI 47 H/O PE Continue Eliquis DVT Ppx: Eliquis Code status: FULL PCP: Dr. Clemons Dispo: med/tele Admission and Anticipated Discharge Date Admission Date: October 15, 2022 Subjective Pt seen in follow up of flank pain ? UTI, stroke alert this AM - R sided numbness CT/ A head and neck obtained and negative, per plywood patcher's discussion w/ stroke neurologist - repeat CT head in 24 hrs, add plavix. Repeat CT head today negative. Neurology also consulted inpt here Currently laying in bed, in no acute distress. Says that her symptoms of numbness are resolved. Also says she feels a ton better. No fevers chills chest pain shortness of breath no abdominal pain Hyperglycemia, uncontrolled diabetes, per patient and her mom issues with her pump as outpatient. environmental educator also consulted. Discussed with pharmacist this morning, she reports that Pseudomonas was resistant to meropenem previously. We will switch to ceftazidime. Patient reports clinically improvement. ID consulted. Review of Systems Review of Systems: All systems reviewed & are unremarkable except as noted in Subjective Physical Exam Physical Exam: General: Morbidly obese young F, in NAD HEENT: EOMI, PERRL, MMM Chest: Clear breath sounds bilaterally, no wheezes or crackles CVS: Regular rate and rhythm, normal heart sounds, no murmur Abdomen: Soft, non tender, not distended, normal bowel sounds. Colostomy with stool; urostomy with clear urine in bag Neuro: Awake, alert, oriented, conversing well Extremities: Bilateral BKA : Mild CVA tenderness, + labial erythema Results & Data Results & Data Vital Signs (Past 12 Hours) Vital Signs Temp Pulse Pulse Resp BP Pulse Ox O2 Del Method 10/17/22 07:55 36.5 C 85 20 116/75 94 Nasal Cannula 10/17/22 03:46 36.6 C 84 16 122/74 93 Room Air 10/17/22 01:59 87 10/17/22 00:10 BiPAP 10/16/22 20:24 10/16/22 23:25 36.5 C 88 20 135/78 91 Room Air O2 Del Method O2 Flow Rate 10/17/22 07:55 2 10/17/22 03:46 10/17/22 01:59 10/17/22 00:10 10/16/22 20:24 Room Air 10/16/22 23:25 Laboratory Results 10/17/22 10/17/22 10/17/22 Range/Units 08:05 08:05 08:05 WBC 4.99 (4.8-10.8) K/ul RBC 3.91 L (4.20-5.40) M/uL Hgb 11.6 L (12.0-16.0) g/dl Hct 37.6 (37.0-47.0) % MCV 96.2 (80.0-100.0) fL MCH 29.7 (25.0-34.0) pg MCHC 30.9 L (32.0-36.0) g/dL RDW Std Deviation 66.1 H (36.4-46.3) fL RDW Coeff of Neda 18.7 H (11.5-14.5) % Plt Count 231 (130-400) K/uL MPV 10.4 (9.4-12.4) fL Sodium 139 (136-145) mmol/L Potassium 4.1 D (3.5-5.1) mmol/L Chloride 104 (98-107) mmol/L Carbon Dioxide 30 (21-32) mmol/L Anion Gap 5 (3-11) BUN 11 (6-23) mg/dl Creatinine 0.39 L (0.6-1.2) mg/dl Est Cr Clr Drug Dosing 171.6 ml/min Est GFR ( Amer) > 150.0 ml/min Est GFR (Non-Af Amer) 136.1 ml/min BUN/Creatinine Ratio 28.2 H (10-20) Glucose 193 H (70-99(Fasting)) mg/dl POC Glucose (70-99) mg/dl Calcium 9.3 (8.6-10.3) mg/dl Phosphorus 3.9 (2.5-4.9) mg/dl Magnesium 2.1 (1.7-2.4) mg/dl Total Creatine Kinase < 10 L (26-192) U/L Triglycerides 258 H (0-150) mg/dl Cholesterol 179 (0-200) mg/dl LDL Cholesterol, Calc 94 mg/dl VLDL Cholesterol, Calc 52 H (0-30) mg/dl HDL Cholesterol 33 mg/dl Cholesterol/HDL Ratio 5.4 H (0-5) Valproic Acid < 10 L (50-100) mcg/ml 10/17/22 10/17/22 10/17/22 Range/Units 07:53 04:46 01:32 WBC (4.8-10.8) K/ul RBC (4.20-5.40) M/uL Hgb (12.0-16.0) g/dl Hct (37.0-47.0) % MCV (80.0-100.0) fL MCH (25.0-34.0) pg MCHC (32.0-36.0) g/dL RDW Std Deviation (36.4-46.3) fL RDW Coeff of Neda (11.5-14.5) % Plt Count (130-400) K/uL MPV (9.4-12.4) fL Sodium (136-145) mmol/L Potassium (3.5-5.1) mmol/L Chloride (98-107) mmol/L Carbon Dioxide (21-32) mmol/L Anion Gap (3-11) BUN (6-23) mg/dl Creatinine (0.6-1.2) mg/dl Est Cr Clr Drug Dosing ml/min Est GFR ( Amer) ml/min Est GFR (Non-Af Amer) ml/min BUN/Creatinine Ratio (10-20) Glucose (70-99(Fasting)) mg/dl POC Glucose 196 H 185 H 190 H (70-99) mg/dl Calcium (8.6-10.3) mg/dl Phosphorus (2.5-4.9) mg/dl Magnesium (1.7-2.4) mg/dl Total Creatine Kinase (26-192) U/L Triglycerides (0-150) mg/dl Cholesterol (0-200) mg/dl LDL Cholesterol, Calc mg/dl VLDL Cholesterol, Calc (0-30) mg/dl HDL Cholesterol mg/dl Cholesterol/HDL Ratio (0-5) Valproic Acid (50-100) mcg/ml 10/16/22 10/16/22 10/16/22 Range/Units 20:15 16:53 14:18 WBC (4.8-10.8) K/ul RBC (4.20-5.40) M/uL Hgb (12.0-16.0) g/dl Hct (37.0-47.0) % MCV (80.0-100.0) fL MCH (25.0-34.0) pg MCHC (32.0-36.0) g/dL RDW Std Deviation (36.4-46.3) fL RDW Coeff of Neda (11.5-14.5) % Plt Count (130-400) K/uL MPV (9.4-12.4) fL Sodium (136-145) mmol/L Potassium (3.5-5.1) mmol/L Chloride (98-107) mmol/L Carbon Dioxide (21-32) mmol/L Anion Gap (3-11) BUN (6-23) mg/dl Creatinine (0.6-1.2) mg/dl Est Cr Clr Drug Dosing ml/min Est GFR ( Amer) ml/min Est GFR (Non-Af Amer) ml/min BUN/Creatinine Ratio (10-20) Glucose (70-99(Fasting)) mg/dl POC Glucose 268 H 301 H* 350 H* (70-99) mg/dl Calcium (8.6-10.3) mg/dl Phosphorus (2.5-4.9) mg/dl Magnesium (1.7-2.4) mg/dl Total Creatine Kinase (26-192) U/L Triglycerides (0-150) mg/dl Cholesterol (0-200) mg/dl LDL Cholesterol, Calc mg/dl VLDL Cholesterol, Calc (0-30) mg/dl HDL Cholesterol mg/dl Cholesterol/HDL Ratio (0-5) Valproic Acid (50-100) mcg/ml 10/16/22 Range/Units 11:49 WBC (4.8-10.8) K/ul RBC (4.20-5.40) M/uL Hgb (12.0-16.0) g/dl Hct (37.0-47.0) % MCV (80.0-100.0) fL MCH (25.0-34.0) pg MCHC (32.0-36.0) g/dL RDW Std Deviation (36.4-46.3) fL RDW Coeff of Neda (11.5-14.5) % Plt Count (130-400) K/uL MPV (9.4-12.4) fL Sodium (136-145) mmol/L Potassium (3.5-5.1) mmol/L Chloride (98-107) mmol/L Carbon Dioxide (21-32) mmol/L Anion Gap (3-11) BUN (6-23) mg/dl Creatinine (0.6-1.2) mg/dl Est Cr Clr Drug Dosing ml/min Est GFR ( Amer) ml/min Est GFR (Non-Af Amer) ml/min BUN/Creatinine Ratio (10-20) Glucose (70-99(Fasting)) mg/dl POC Glucose 430 H* (70-99) mg/dl Calcium (8.6-10.3) mg/dl Phosphorus (2.5-4.9) mg/dl Magnesium (1.7-2.4) mg/dl Total Creatine Kinase (26-192) U/L Triglycerides (0-150) mg/dl Cholesterol (0-200) mg/dl LDL Cholesterol, Calc mg/dl VLDL Cholesterol, Calc (0-30) mg/dl HDL Cholesterol mg/dl Cholesterol/HDL Ratio (0-5) Valproic Acid (50-100) mcg/ml Medications Administered Current Inpatient Medications Acetaminophen (Acetaminophen 325 Mg Tab) 650 mg PO Q4H PRN PRN Reason: Pain or Fever Stop: 11/14/22 20:23 Last Admin: 10/15/22 21:25 Dose: 650 mg Albuterol (Albuterol Hfa 8 Gm Inhaler) 2 puffs INH [facility] Stop: 11/14/22 20:59 Last Admin: 10/17/22 07:48 Dose: Not Given Albuterol (Albuterol Hfa 8 Gm Inhaler) 2 puffs INH Q6H PRN PRN Reason: Shortness Of Breath Or Wheezing Stop: 11/14/22 20:23 Apixaban (Apixaban 5 Mg Tablet) 5 mg PO [facility] Stop: 11/14/22 20:59 Last Admin: 10/16/22 21:28 Dose: 5 mg Atenolol (Atenolol 25 Mg Tablet) 25 mg PO HS [facility] Stop: 11/15/22 20:59 Last Admin: 10/16/22 21:29 Dose: 25 mg Brexpiprazole (Pt's Own Med: Brexpiprazole 4 Mg Tab) 4 mg PO QAM [facility] Stop: 11/15/22 08:59 Last Admin: 10/16/22 08:49 Dose: 4 mg Calamine/Phenol (Menthol-Zinc Oxide 360 Appln/120 Gm Tube) 1 appln EXT UD PRN PRN Reason: UNDER XEROFOAM TO BUTTOCKS Stop: 11/14/22 20:23 Cetirizine HCl (Cetirizine Hcl 10 Mg Tablet) 10 mg PO DAILY PRN PRN Reason: PRIOR TO ANTIBIOTICS Stop: 11/14/22 20:23 Clonazepam (Clonazepam 0.5 Mg Tab) 0.5 mg PO HS [facility] Stop: 11/14/22 20:59 Last Admin: 10/16/22 21:30 Dose: 0.5 mg Clopidogrel Bisulfate (Clopidogrel Bisulfate 75 Mg Tab) 75 mg PO QAM [facility] Stop: 11/16/22 08:59 Clotrimazole (Clotrimazole 1% Cr 15 Gm Tube) 1 appln TOP UD PRN PRN Reason: BUTTOCKS WHEN SOILED. Stop: 11/14/22 20:23 Cyanocobalamin (Cyanocobalamin (B-12) 500 Mcg Tablet) 1,000 mcg PO DAILY [facility] Stop: 11/15/22 08:59 Last Admin: 10/16/22 08:49 Dose: 1,000 mcg Cyclobenzaprine HCl (Cyclobenzaprine Hcl 10 Mg Tab) 5 mg PO TID PRN PRN Reason: muscle spasm Stop: 11/14/22 20:43 Last Admin: 10/16/22 21:33 Dose: 5 mg Dextrose (Dextrose 50% 50 Ml Syringe) 25 - 50 ml IV UD PRN; Protocol PRN Reason: Hypoglycemia Protocol Stop: 11/14/22 20:23 Dicyclomine HCl (Dicyclomine Hcl 10 Mg Cap) 20 mg PO BIDM [facility] Stop: 11/15/22 07:59 Last Admin: 10/16/22 17:46 Dose: 20 mg Divalproex Sodium (Divalproex Extended Release 500 Mg Tab) 2,000 mg PO QAM [facility] Stop: 11/15/22 08:59 Last Admin: 10/16/22 08:50 Dose: 2,000 mg Famotidine (Famotidine 40 Mg Tablet) 40 mg PO HS [facility] Stop: 11/14/22 20:59 Last Admin: 10/16/22 21:30 Dose: 40 mg Ferrous Sulfate (Ferrous Sulfate 325 Mg Tab) 325 mg PO BIDM [facility] Stop: 11/15/22 07:59 Last Admin: 10/16/22 17:46 Dose: 325 mg Fluticasone/Vilanterol (Fluticasone/Vilanterol 100/25mcg 14 Puffs/Inhaler) 1 puffs INH QAM [facility] Stop: 11/15/22 08:59 Last Admin: 10/16/22 08:52 Dose: 1 puffs Glucagon (Glucagon For Inj 1 Mg Vial) 1 mg SQ UD PRN; Protocol PRN Reason: Hypoglycemia Protocol Stop: 11/14/22 20:23 Glucose (Glucose 10 Tab/Tube) 4 - 8 tab PO UD PRN; Protocol PRN Reason: Hypoglycemia Treatment Stop: 11/14/22 20:23 Glucose (Glucose 40% Gel 15 Gm Tube) 15 - 30 gm PO UD PRN; Protocol PRN Reason: Hypoglycemia Protocol Stop: 11/14/22 20:23 Heparin Sodium (Porcine) (Heparin 100 Unit/Ml 5ml Flush) 5 ml FLUSH PRN PRN PRN Reason: Flush Stop: 11/14/22 21:16 Last Admin: 10/16/22 01:12 Dose: 5 ml Hydroxyzine HCl (Hydroxyzine Hcl 25 Mg Tab) 25 mg PO QID PRN PRN Reason: Anxiety Stop: 11/15/22 02:03 Last Admin: 10/16/22 02:14 Dose: 25 mg Meropenem 500 mg/ Syringe 10 mls @ 2 mls/min IV Q6H [facility]; Protocol Stop: 10/25/22 19:29 Last Admin: 10/17/22 04:57 Dose: 2 mls/min Daptomycin 600 mg/ Syringe 12 mls @ 6 mls/min IV DAILY [facility]; Protocol Stop: 10/19/22 23:59 Last Admin: 10/16/22 10:42 Dose: 6 mls/min Insulin Aspart (Insulin Aspart Per Unit Charge) 0 units SC ACHS [facility] Stop: 11/14/22 20:23 Last Admin: 10/16/22 21:30 Dose: 13 units Insulin Glargine (Lantus Per Unit Charge) 0 units SQ HS [facility]; Protocol Stop: 11/15/22 20:59 Last Admin: 10/16/22 21:31 Dose: 50 units Levalbuterol HCl (Levalbuterol Hcl 0.63 Mg/3 Ml Neb) 0.63 mg INH Q6H PRN; Protocol PRN Reason: Shortness Of Breath Stop: 11/14/22 20:23 Levothyroxine Sodium ([facility]ine Sodium 100 Mcg Tablet) [facility]: 11/15/22 06:29 Last Admin: 10/17/22 06:23 Dose: 100 mcg Linaclotide (Linaclotide 145 Mcg Capsule) 290 mcg PO DAILYBB [facility] Stop: 11/15/22 06:29 Last Admin: 10/17/22 06:24 Dose: 290 mcg Loratadine (Loratadine 10 Mg Tab) 20 mg PO QAM [facility] Stop: 11/15/22 08:59 Last Admin: 10/16/22 08:50 Dose: 20 mg Loxapine Succinate (Loxapine 5 Mg Capsule) 1 each PO TID PRN PRN Reason: Anxiety Stop: 11/15/22 14:59 Last Admin: 10/16/22 21:34 Dose: 1 each Magnesium Oxide (Magnesium Oxide 400 Mg Tab) 400 mg PO QDL [facility] Stop: 11/15/22 11:29 Last Admin: 10/16/22 13:07 Dose: 400 mg Miscellaneous (Carbohydrates For Hypoglycemia ) 15 - 30 gm PO UD PRN PRN Reason: Hypoglycemia Protocol Stop: 11/14/22 20:23 Miscellaneous Information (Pharmacy Glycemic Mgmt Consult) 1 each N/A UD PRN; Protocol PRN Reason: Consult Stop: 11/15/22 02:06 Montelukast Sodium (Montelukast Sodium 10 Mg Tablet) 10 mg PO PM [facility] Stop: 11/14/22 20:59 Last Admin: 10/16/22 21:32 Dose: 10 mg Morphine Sulfate (Morphine Sulfate 4 Mg/Ml 1 Ml Carp\Vial) 4 mg IV Q6H PRN PRN Reason: Severe Pain (Scale 7, 8, 9,10) Stop: 10/29/22 18:36 Last Admin: 10/15/22 19:04 Dose: 4 mg Multivitamins/Minerals (Cerovite Adv Formula Tab) 1 tab PO QDL [facility] Stop: 11/15/22 11:29 Last Admin: 10/16/22 13:06 Dose: 1 tab Nystatin (Nystatin Cr 15 Gm Tube) 1 appln EXT BID PRN PRN Reason: Skin Irritation Stop: 11/14/22 20:23 Ondansetron HCl (Ondansetron Inj 2 Mg/Ml 2 Ml Vial) 4 mg IV Q6H PRN PRN Reason: Nausea Stop: 11/14/22 20:23 Last Admin: 10/15/22 21:25 Dose: 4 mg Pantoprazole Sodium (Pantoprazole 40 Mg Tab) 40 mg PO BID [facility] Stop: 11/14/22 20:59 Last Admin: 10/16/22 21:32 Dose: 40 mg Polyethylene Glycol (Polyethylene (Miralax) 17 Gm Pack) 17 gm PO DAILY PRN PRN Reason: Constipation Stop: 11/14/22 20:23 Sucralfate (Sucralfate 1 Gm Tab) 1 gm PO BID PRN PRN Reason: gastritis Stop: 11/14/22 20:23 Trazodone HCl (Trazodone Hcl 100 Mg Tab) 300 mg PO HS [facility] Stop: 11/14/22 20:59 Last Admin: 10/16/22 21:33 Dose: 300 mg Umeclidinium [place] (Umeclidinium [place] 62.5mcg/Blister 7 Puffs/Inhaler) 1 puffs INH QAM [facility] Stop: 11/15/22 08:59 Last Admin: 10/16/22 08:54 Dose: 1 puffs Venlafaxine HCl (Venlafaxine Hcl Xr 75 Mg Capxr) 75 mg PO QAM [facility] Stop: 11/15/22 08:59 Last Admin: 10/16/22 08:50 Dose: 75 mg Venlafaxine HCl (Venlafaxine Hcl Xr 150 Mg Capxr) 150 mg PO QAM [facility] Stop: 11/15/22 08:59 Last Admin: 10/16/22 08:50 Dose: 150 mg (8) Sleep apnea Sleep apnea type: obstructive Qualified Code(s): G47.33 - Obstructive sleep apnea (adult) (pediatric)
[2022-10-17] MEDS: ACETAMINOPHEN 325 MG TAB PO PRN (08:38)
[2022-10-17] MEDS: MoRPHine SULFATE 4 MG/ML 1 ML CARP\\VIAL IV PRN (08:38)
[2022-10-17] MEDS: FERROUS SULFATE 325 MG TAB PO SCH ×2 (08:39→17:12)
[2022-10-17] MEDS: DICYCLOMINE HCL 10 MG CAP PO SCH ×2 (08:39→17:12)
[2022-10-17] MEDS: LOXAPINE 5 MG PO PRN (08:39)
[2022-10-17] MEDS: DAPTOmycin 600 MG in SYRINGE 0 ML IV SCH (08:39)
[2022-10-17] MEDS: hydrOXYzine HCl 25 MG TAB PO PRN (08:39)
[2022-10-17] MEDS: DIVALPROEX EXTENDED RELEASE 500 MG TAB PO SCH (08:40)
[2022-10-17] MEDS: CYANOCOBALAMIN (B-12) 500 MCG TABLET PO SCH (08:40)
[2022-10-17] MEDS: VENLAFAXINE HCL XR 75 MG CAPXR PO SCH (08:40)
[2022-10-17] MEDS: APIXABAN 5 MG TABLET PO SCH ×2 (08:41→21:00)
[2022-10-17] MEDS: CLOPIDOGREL BISULFATE 75 MG TAB PO SCH (08:41)
[2022-10-17] MEDS: PANTOprazole 40 MG TAB PO SCH ×2 (08:41→21:00)
[2022-10-17] MEDS: VENLAFAXINE HCL XR 150 MG CAPXR PO SCH (08:41)
[2022-10-17] MEDS: LORATADINE 10 MG TAB PO SCH (08:41)
[2022-10-17] MEDS: BREXPIPRAZOLE 4 MG PO SCH (08:42)
[2022-10-17 08:43] LABS: Hematocrit (blood only) 37.6 % (37.0-47.0); Hemoglobin 11.6 g/dl (12.0-16.0); Mean Corpuscular Hemoglobin 29.7 pg (25.0-34.0); Mean Corpuscular Hgb Conc 30.9 g/dL (32.0-36.0); Mean Corpuscular Volume 96.2 fL (80.0-100.0); Mean Platelet Volume 10.4 fL (9.4-12.4); Platelet Count 231 K/uL (130-400); RDW Coefficient of Variation 18.7 % (11.5-14.5); RDW Standard Deviation 66.1 fL (36.4-46.3); Red Blood Count 3.91 M/uL (4.20-5.40); White Blood Count 4.99 K/ul (4.8-10.8)
[2022-10-17] MEDS: UMECLIDINIUM BROMIDE 62.5MCG/BLISTER 7 PUFFS/INHALER INH SCH (08:43)
[2022-10-17] MEDS: FLUTICASONE/VILANTEROL 100/25MCG 14 PUFFS/INHALER INH SCH (08:43)
[2022-10-17 09:22] LABS: Anion Gap 5 (3-11); BUN Creatinine Ratio 28.2 (10-20); Blood Urea Nitrogen 11 mg/dl (6-23); Calcium 9.3 mg/dl (8.6-10.3); Carbon Dioxide 30 mmol/L (21-32); Chloride 104 mmol/L (98-107); Chol HDL Ratio 5.4 (0-5); Cholesterol 179 mg/dl (0-200); Creatine Kinase < 10 U/L (26-192); Creatinine Clr Calc Pharmacy 171.6 ml/min; Est GFR (African American) > 150.0 ml/min; Est GFR (Non-African American) 136.1 ml/min; Glucose 193 mg/dl (70-99(Fasting)); HDL Cholesterol 33 mg/dl; LDL Cholesterol Calculated 94 mg/dl; Magnesium 2.1 mg/dl (1.7-2.4); Phosphorus 3.9 mg/dl (2.5-4.9); Potassium 4.1 mmol/L (3.5-5.1); Sodium 139 mmol/L (136-145); Triglycerides 258 mg/dl (0-150); VLDL Cholesterol 52 mg/dl (0-30)
[2022-10-17] MEDS ORDERED: diphenhydrAMINE Capsule 25 MG CAP PO STA (09:50)
[2022-10-17] MEDS: CEROVITE ADV FORMULA TAB PO SCH (12:03)
[2022-10-17] MEDS: MAGNESIUM OXIDE 400 MG TAB PO SCH (12:03)
--- NOTE | 2022-10-17 12:07 | Pharmacy Report ---
Pharmacy Glycemic Short Note 2 - Date of Service October 17, 2022 - Glycemic Short BSG Results (Last 24 hours): 10/16/22 10/16/22 10/16/22 14:18 16:53 20:15 Glucose POC Glucose 350 H* 301 H* 268 H 10/17/22 10/17/22 10/17/22 01:32 04:46 07:53 Glucose POC Glucose 190 H 185 H 196 H 10/17/22 10/17/22 08:05 11:16 Glucose 193 H POC Glucose 221 H OUTPATIENT ANTIDIABETIC REGIMEN: * A1c = 7.9% * Novolog insulin pump * Basal: 1.3 units/hr * Correction factor: 20, Carb ratio: 5 ASSESSMENT: 10/17/22: * BSGs elevated yesterday, but improved overnight * Received 154 units of insulin (60 units of basal and 94 units of prandial/correctional bolus) * Will tighten Novolog today and allow for marginally increased basal insulin today pending BSG * Continues on broad antimicrobial therapy with daptomycin and meropenem 10/16/22: * Connie is a 37 yo poorly controlled T2DM with extensive past medical history who presented with flank pain and severe hyperglycemia. * Per H&P, patient reports recently starting on insulin pump and having difficulty controlling her BSG as an outpatient. On admission, she was converted to basal + bolus SQ insulin. * Fasting BSG of 329 mg/dL. An additional 10 units of Lantus was ordered and Novolog carb ratio was tightened. Unfortunately, due to stroke alert and patient being transferred, AM insulin was not administered until 10:30. She has received 35-90 units of basal insulin per day during previous admission (both on and off steroids) therefore very difficult to determine basal needs. * Lunch BSG of 430 mg/dL. Patient was ordered a 10 units IV regular insulin bolus with re-check in two hours. Plan discussed with provider. * Add overnight checks with coverage. PLAN FOR INPATIENT GLYCEMIC CONTROL: * Basal insulin * Lantus 45-55 units SC HS * Bolus insulin * NovoLog per scale ACHS or Q6hrs while NPO * Goal Range: Low 110 mg/dL - High 140 mg/dL * Correction Factor: 10 mg/dL/unit * Nutritional / Prandial insulin per carb ratio of 1 unit per 2 grams CHO consumed
[2022-10-17] MEDS ORDERED: BACITRACIN OINT 0.9 GM PKT EXT PRN (12:32)
[2022-10-17] MEDS: ATORVASTATIN 40 MG TAB PO SCH (17:11)
[2022-10-17] MEDS: diphenhydrAMINE Capsule 25 MG CAP PO SCH (17:11)
[2022-10-17] MEDS: traZODone HCL 100 MG TAB PO SCH (21:00)
[2022-10-17] MEDS: FAMOTIDINE 40 MG TABLET PO SCH (21:00)
[2022-10-17] MEDS: MONTELUKAST SODIUM 10 MG TABLET PO SCH (21:00)
[2022-10-17] MEDS: ATENOLOL 25 MG TABLET PO SCH (21:00)
[2022-10-17] MEDS: clonazePAM 0.5 MG TAB PO SCH (21:16)
[2022-10-17] MEDS: LANTUS PER UNIT CHARGE SQ SCH (21:16)
[2022-10-18] MEDS: diphenhydrAMINE Capsule 25 MG CAP PO SCH ×3 (01:19→17:57)
[2022-10-18] MEDS: LEVOTHYROXINE SODIUM 100 MCG TABLET PO SCH (05:54)
[2022-10-18] MEDS: LINACLOTIDE 145 MCG CAPSULE PO SCH (05:54)
[2022-10-18 07:09] LABS: Hematocrit (blood only) 36.9 % (37.0-47.0); Hemoglobin 11.3 g/dl (12.0-16.0); Mean Corpuscular Hemoglobin 30.4 pg (25.0-34.0); Mean Corpuscular Hgb Conc 30.6 g/dL (32.0-36.0); Mean Corpuscular Volume 99.2 fL (80.0-100.0); Mean Platelet Volume 10.7 fL (9.4-12.4); Platelet Count 262 K/uL (130-400); RDW Standard Deviation 69.2 fL (36.4-46.3); Red Blood Count 3.72 M/uL (4.20-5.40); White Blood Count 5.29 K/ul (4.8-10.8)
[2022-10-18 07:26] LABS: Anion Gap 7 (3-11); BUN Creatinine Ratio 33.3 (10-20); Blood Urea Nitrogen 11 mg/dl (6-23); Calcium 9.2 mg/dl (8.6-10.3); Carbon Dioxide 30 mmol/L (21-32); Chloride 102 mmol/L (98-107); Creatinine Clr Calc Pharmacy 190.5 ml/min; Est GFR (African American) > 150.0 ml/min; Est GFR (Non-African American) 143.8 ml/min; Glucose 178 mg/dl (70-99(Fasting)); Phosphorus 5.1 mg/dl (2.5-4.9); Potassium 3.7 mmol/L (3.5-5.1); Sodium 139 mmol/L (136-145)
[2022-10-18] MEDS: ALBUTEROL HFA 8 GM INHALER INH SCH ×2 (07:34→19:14)
--- NOTE | 2022-10-18 07:45 | Hospitalist Progress Note ---
Date of Service October 18, 2022 Assessment & Plan (1) Bilateral flank pain: (2) MRSA bacteremia: (3) Vulvar edema: (4) Frequent urinary tract infections: (5) Insulin-requiring or dependent type II diabetes mellitus: (6) Neurogenic bladder: (7) Spina bifida: (8) Sleep apnea: Plan This is a 37yo F with a PMH of spina bifida, bilateral below-knee amputation due to MRSA infection, wheelchair bound, diabetes type 2, on insulin, morbid obesity, obstructive sleep apnea, hypothyroidism, depression, bipolar disorder, status post BARREL SCRAPER shunt, status post colostomy and urostomy, history of multiple drug resistants recurrent UTI, history of PE, on Eliquis, chronic posttraumatic stress disorder, generalized anxiety disorder, eating disorder, ADHD, history of asthma who presents with flank pain. Bilateral flank pain Recent MRSA bacteremia, Morganella UTI Per ID, discharged on IV Aztreonam (completed on 10/06) and Dapto (scheduled through October 19) Recurrent flank pain for 24hrs after previously feeling better - admitting team discussed abx option with pharmacy and started meropenem to cover pseudomonas, continue IV Dapto 10/17 -discussed with pharmacist again this morning, she reports that Pseudomonas resistant to meropenem previously, switched to ceftazidime. Patient clinically improved. ID consulted. Follow urine, blood cultures Blood cultures so far negative, urine culture positive for gram-negative bacilli Right labial cellulitis 09/21 Vulva culture growing Pseudomonas, MRSA Treated with Diflucan for 2 doses, discharged on Invanz, Dapto Continue abx as above Appreciate FLORAL DESIGN TEACHER input Poorly controlled DM II HbA1c 7.9 Recently started on insulin pump, reports difficulty controlling bsg at home with bsg >600 x 1 week In ER BSG 496 and was given IV insulin, blood glc still not controlled next day Glycemic pharmacy consulted perioperative educator consulted for pump 10/18 -patient now back on pump, and blood sugars much better controlled. Continue to monitor closely. Elevated lactic acid -> resolved In setting of hyperglycemia. Initially 2.2 -> 2.0 on repeat Pseudohyponatremia 2/2 hyperglycemia. Corrected sodium within range Stroke alert - 5/14 AM d/t R-sided numbness - CT/A head and neck negative - per screen maker's conversation w/ stroke neurologist - recommend to repeat CT head in 24 hrs and add plavix (pt is already on eliquis) - CT head repeated - negative, also any symptoms of numbness resolved. - inpt neurology consulted - consider resuming statin (on hold d/t daptomycin), obtained ck level and <10, resume statin Hypertension Continue atenolol and Lasix Obstructive sleep apnea Obesity hypoventilation syndrome On BiPAP at night Hypothyroidism on levothyroxine Hyperlipidemia Hold Lipitor while on daptomycin Chronic hypoxic hypercarbic respiratory failure Continue BiPAP, supplemental oxygen Bipolar disorder Depression Continue home medications. H/O spina bifida S/P ventriculoperitoneal shunt Chronic migraines Continue home medications. Morbid obesity BMI 47 H/O PE Continue Eliquis DVT Ppx: Eliquis Code status: FULL PCP: Dr. Clemons Dispo: med/tele Admission and Anticipated Discharge Date Admission Date: October 16, 2022 Subjective Pt seen in follow up of flank pain ? UTI, stroke alert yesterday AM - R sided numbness CT/ A head and neck obtained and negative, per screen maker's discussion w/ stroke neurologist - repeat CT head in 24 hrs, add plavix. Repeat CT head also negative. Neurology also consulted inpt here Currently laying in bed, in no acute distress. Says that her symptoms of numbness are resolved. Also says she feels a ton better. No fevers chills chest pain shortness of breath no abdominal pain Hyperglycemia, uncontrolled diabetes, per patient and her mom issues with her pump as outpatient. art educator also consulted. Now patient back on her pump, and blood sugar seems to be much better controlled, continue to monitor blood sugar closely. Discussed with pharmacist yesterday morning, per pharmacist Pseudomonas was resistant to meropenem previously. Switched to ceftazidime. Patient reports clinically improvement. ID consulted. Review of Systems Review of Systems: All systems reviewed & are unremarkable except as noted in Subjective Physical Exam Physical Exam: General: Morbidly obese young F, in NAD HEENT: EOMI, PERRL, MMM Chest: Clear breath sounds bilaterally, no wheezes or crackles CVS: Regular rate and rhythm, normal heart sounds, no murmur Abdomen: Soft, non tender, not distended, normal bowel sounds. Colostomy with stool; urostomy with clear urine in bag Neuro: Awake, alert, oriented, conversing well Extremities: Bilateral BKA : CVA tenderness resolved, + labial erythema Results & Data Results & Data Vital Signs (Past 12 Hours) Vital Signs Temp Pulse Pulse Resp BP Pulse Ox O2 Del Method 10/18/22 07:35 86 18 91 Room Air 10/18/22 04:24 Room Air, BiPAP 10/18/22 03:14 84 18 117/76 95 Room Air, BiPAP 10/17/22 22:51 94 H 10/17/22 23:11 36.5 C 95 H 18 117/76 93 Room Air 10/17/22 20:17 36.5 C 98 H 18 108/73 96 Oxymask O2 Flow Rate 10/18/22 07:35 10/18/22 04:24 10/18/22 03:14 10/17/22 22:51 10/17/22 23:11 10/17/22 20:17 2 Laboratory Results 10/18/22 10/18/22 10/18/22 Range/Units 07:18 06:25 06:25 WBC 5.29 (4.8-10.8) K/ul RBC 3.72 L (4.20-5.40) M/uL Hgb 11.3 L (12.0-16.0) g/dl Hct 36.9 L (37.0-47.0) % MCV 99.2 (80.0-100.0) fL MCH 30.4 (25.0-34.0) pg MCHC 30.6 L (32.0-36.0) g/dL RDW Std Deviation 69.2 H (36.4-46.3) fL RDW Coeff of Neda 19.0 H (11.5-14.5) % Plt Count 262 (130-400) K/uL MPV 10.7 (9.4-12.4) fL Sodium 139 (136-145) mmol/L Potassium 3.7 (3.5-5.1) mmol/L Chloride 102 (98-107) mmol/L Carbon Dioxide 30 (21-32) mmol/L Anion Gap 7 (3-11) BUN 11 (6-23) mg/dl Creatinine 0.33 L (0.6-1.2) mg/dl Est Cr Clr Drug Dosing 190.5 ml/min Est GFR ( Amer) > 150.0 ml/min Est GFR (Non-Af Amer) 143.8 ml/min BUN/Creatinine Ratio 33.3 H (10-20) Glucose 178 H (70-99(Fasting)) mg/dl POC Glucose 193 H (70-99) mg/dl Calcium 9.2 (8.6-10.3) mg/dl Phosphorus 5.1 H (2.5-4.9) mg/dl Magnesium 2.0 (1.7-2.4) mg/dl Total Creatine Kinase (26-192) U/L Triglycerides (0-150) mg/dl Cholesterol (0-200) mg/dl LDL Cholesterol, Calc mg/dl VLDL Cholesterol, Calc (0-30) mg/dl HDL Cholesterol mg/dl Cholesterol/HDL Ratio (0-5) Valproic Acid (50-100) mcg/ml 10/17/22 10/17/22 10/17/22 Range/Units 20:19 16:43 11:16 WBC (4.8-10.8) K/ul RBC (4.20-5.40) M/uL Hgb (12.0-16.0) g/dl Hct (37.0-47.0) % MCV (80.0-100.0) fL MCH (25.0-34.0) pg MCHC (32.0-36.0) g/dL RDW Std Deviation (36.4-46.3) fL RDW Coeff of Neda (11.5-14.5) % Plt Count (130-400) K/uL MPV (9.4-12.4) fL Sodium (136-145) mmol/L Potassium (3.5-5.1) mmol/L Chloride (98-107) mmol/L Carbon Dioxide (21-32) mmol/L Anion Gap (3-11) BUN (6-23) mg/dl Creatinine (0.6-1.2) mg/dl Est Cr Clr Drug Dosing ml/min Est GFR ( Amer) ml/min Est GFR (Non-Af Amer) ml/min BUN/Creatinine Ratio (10-20) Glucose (70-99(Fasting)) mg/dl POC Glucose 163 H 156 H 221 H (70-99) mg/dl Calcium (8.6-10.3) mg/dl Phosphorus (2.5-4.9) mg/dl Magnesium (1.7-2.4) mg/dl Total Creatine Kinase (26-192) U/L Triglycerides (0-150) mg/dl Cholesterol (0-200) mg/dl LDL Cholesterol, Calc mg/dl VLDL Cholesterol, Calc (0-30) mg/dl HDL Cholesterol mg/dl Cholesterol/HDL Ratio (0-5) Valproic Acid (50-100) mcg/ml 10/17/22 10/17/22 10/17/22 Range/Units 08:05 08:05 08:05 WBC 4.99 (4.8-10.8) K/ul RBC 3.91 L (4.20-5.40) M/uL Hgb 11.6 L (12.0-16.0) g/dl Hct 37.6 (37.0-47.0) % MCV 96.2 (80.0-100.0) fL MCH 29.7 (25.0-34.0) pg MCHC 30.9 L (32.0-36.0) g/dL RDW Std Deviation 66.1 H (36.4-46.3) fL RDW Coeff of Neda 18.7 H (11.5-14.5) % Plt Count 231 (130-400) K/uL MPV 10.4 (9.4-12.4) fL Sodium 139 (136-145) mmol/L Potassium 4.1 D (3.5-5.1) mmol/L Chloride 104 (98-107) mmol/L Carbon Dioxide 30 (21-32) mmol/L Anion Gap 5 (3-11) BUN 11 (6-23) mg/dl Creatinine 0.39 L (0.6-1.2) mg/dl Est Cr Clr Drug Dosing 171.6 ml/min Est GFR ( Amer) > 150.0 ml/min Est GFR (Non-Af Amer) 136.1 ml/min BUN/Creatinine Ratio 28.2 H (10-20) Glucose 193 H (70-99(Fasting)) mg/dl POC Glucose (70-99) mg/dl Calcium 9.3 (8.6-10.3) mg/dl Phosphorus 3.9 (2.5-4.9) mg/dl Magnesium 2.1 (1.7-2.4) mg/dl Total Creatine Kinase < 10 L (26-192) U/L Triglycerides 258 H (0-150) mg/dl Cholesterol 179 (0-200) mg/dl LDL Cholesterol, Calc 94 mg/dl VLDL Cholesterol, Calc 52 H (0-30) mg/dl HDL Cholesterol 33 mg/dl Cholesterol/HDL Ratio 5.4 H (0-5) Valproic Acid < 10 L (50-100) mcg/ml 10/17/22 Range/Units 07:53 WBC (4.8-10.8) K/ul RBC (4.20-5.40) M/uL Hgb (12.0-16.0) g/dl Hct (37.0-47.0) % MCV (80.0-100.0) fL MCH (25.0-34.0) pg MCHC (32.0-36.0) g/dL RDW Std Deviation (36.4-46.3) fL RDW Coeff of Neda (11.5-14.5) % Plt Count (130-400) K/uL MPV (9.4-12.4) fL Sodium (136-145) mmol/L Potassium (3.5-5.1) mmol/L Chloride (98-107) mmol/L Carbon Dioxide (21-32) mmol/L Anion Gap (3-11) BUN (6-23) mg/dl Creatinine (0.6-1.2) mg/dl Est Cr Clr Drug Dosing ml/min Est GFR ( Amer) ml/min Est GFR (Non-Af Amer) ml/min BUN/Creatinine Ratio (10-20) Glucose (70-99(Fasting)) mg/dl POC Glucose 196 H (70-99) mg/dl Calcium (8.6-10.3) mg/dl Phosphorus (2.5-4.9) mg/dl Magnesium (1.7-2.4) mg/dl Total Creatine Kinase (26-192) U/L Triglycerides (0-150) mg/dl Cholesterol (0-200) mg/dl LDL Cholesterol, Calc mg/dl VLDL Cholesterol, Calc (0-30) mg/dl HDL Cholesterol mg/dl Cholesterol/HDL Ratio (0-5) Valproic Acid (50-100) mcg/ml Medications Administered Current Inpatient Medications Acetaminophen (Acetaminophen 325 Mg Tab) 650 mg PO Q4H PRN PRN Reason: Pain or Fever Stop: 11/14/22 20:23 Last Admin: 10/17/22 08:38 Dose: 650 mg Albuterol (Albuterol Hfa 8 Gm Inhaler) 2 puffs INH [facility] Stop: 11/14/22 20:59 Last Admin: 10/18/22 07:34 Dose: 2 puffs Albuterol (Albuterol Hfa 8 Gm Inhaler) 2 puffs INH Q6H PRN PRN Reason: Shortness Of Breath Or Wheezing Stop: 11/14/22 20:23 Apixaban (Apixaban 5 Mg Tablet) 5 mg PO [facility] Stop: 11/14/22 20:59 Last Admin: 10/17/22 21:00 Dose: 5 mg Atenolol (Atenolol 25 Mg Tablet) 25 mg PO [facility] Stop: 11/15/22 20:59 Last Admin: 10/17/22 21:00 Dose: 25 mg Atorvastatin Calcium (Atorvastatin 40 Mg Tab) 40 mg PO QDD [facility] Stop: 11/16/22 16:29 Last Admin: 10/17/22 17:11 Dose: 40 mg Bacitracin (Bacitracin Oint 0.9 Gm Pkt) 1 appln EXT BID PRN PRN Reason: Bleeding Stop: 11/16/22 12:31 Brexpiprazole (Pt's Own Med: Brexpiprazole 4 Mg Tab) [address] [facility] Stop: 11/15/22 08:59 Last Admin: 10/17/22 08:42 Dose: 4 mg Calamine/Phenol (Menthol-Zinc Oxide 360 Appln/120 Gm Tube) 1 appln EXT UD PRN PRN Reason: UNDER XEROFOAM TO BUTTOCKS Stop: 11/14/22 20:23 Cetirizine HCl (Cetirizine Hcl 10 Mg Tablet) 10 mg PO DAILY PRN PRN Reason: PRIOR TO ANTIBIOTICS Stop: 11/14/22 20:23 Clonazepam (Clonazepam 0.5 Mg Tab) 0.5 mg PO [facility] Stop: 11/14/22 20:59 Last Admin: 10/17/22 21:16 Dose: 0.5 mg Clopidogrel Bisulfate (Clopidogrel Bisulfate 75 Mg Tab) [address] [facility] Stop: 11/16/22 08:59 Last Admin: 10/17/22 08:41 Dose: 75 mg Clotrimazole (Clotrimazole 1% Cr 15 Gm Tube) 1 appln TOP UD PRN PRN Reason: BUTTOCKS WHEN SOILED. Stop: 11/14/22 20:23 Cyanocobalamin (Cyanocobalamin (B-12) 500 Mcg Tablet) 1,000 mcg PO DAILY [facility] Stop: 11/15/22 08:59 Last Admin: 10/17/22 08:40 Dose: 1,000 mcg Cyclobenzaprine HCl (Cyclobenzaprine Hcl 10 Mg Tab) 5 mg PO TID PRN PRN Reason: muscle spasm Stop: 11/14/22 20:43 Last Admin: 10/16/22 21:33 Dose: 5 mg Dextrose (Dextrose 50% 50 Ml Syringe) 25 - 50 ml IV UD PRN; Protocol PRN Reason: Hypoglycemia Protocol Stop: 11/14/22 20:23 Dicyclomine HCl (Dicyclomine Hcl 10 Mg Cap) 20 mg PO BIDM [facility] Stop: 11/15/22 07:59 Last Admin: 10/17/22 17:12 Dose: 20 mg Diphenhydramine HCl (Diphenhydramine Capsule 25 Mg Cap) 25 mg PO Q8H [facility] Stop: 11/16/22 17:29 Last Admin: 10/18/22 01:19 Dose: 25 mg Divalproex Sodium (Divalproex Extended Release 500 Mg Tab) 2,000 mg PO QAM [facility] Stop: 11/15/22 08:59 Last Admin: 10/17/22 08:40 Dose: 2,000 mg Famotidine (Famotidine 40 Mg Tablet) 40 mg PO HS [facility] Stop: 11/14/22 20:59 Last Admin: 10/17/22 21:00 Dose: 40 mg Ferrous Sulfate (Ferrous Sulfate 325 Mg Tab) 325 mg PO BIDM [facility] Stop: 11/15/22 07:59 Last Admin: 10/17/22 17:12 Dose: 325 mg Fluticasone/Vilanterol (Fluticasone/Vilanterol 100/25mcg 14 Puffs/Inhaler) 1 puffs INH QAM [facility] Stop: 11/15/22 08:59 Last Admin: 10/17/22 08:43 Dose: 1 puffs Glucagon (Glucagon For Inj 1 Mg Vial) 1 mg SQ UD PRN; Protocol PRN Reason: Hypoglycemia Protocol Stop: 11/14/22 20:23 Glucose (Glucose 10 Tab/Tube) 4 - 8 tab PO UD PRN; Protocol PRN Reason: Hypoglycemia Treatment Stop: 11/14/22 20:23 Glucose (Glucose 40% Gel 15 Gm Tube) 15 - 30 gm PO UD PRN; Protocol PRN Reason: Hypoglycemia Protocol Stop: 11/14/22 20:23 Heparin Sodium (Porcine) (Heparin 100 Unit/Ml 5ml Flush) 5 ml FLUSH PRN PRN PRN Reason: Flush Stop: 11/14/22 21:16 Last Admin: 10/16/22 01:12 Dose: 5 ml Hydroxyzine HCl (Hydroxyzine Hcl 25 Mg Tab) 25 mg PO QID PRN PRN Reason: Anxiety Stop: 11/15/22 02:03 Last Admin: 10/17/22 08:39 Dose: 25 mg Daptomycin 600 mg/ Syringe 12 mls @ 6 mls/min IV DAILY [facility]; Protocol Stop: 10/19/22 23:59 Last Admin: 10/17/22 08:39 Dose: 6 mls/min Ceftazidime 2,000 mg/ Dextrose 60 mls @ 120 mls/hr IV Q8H [facility] Stop: 10/27/22 09:59 Last Infusion: 10/18/22 02:52 Dose: Infused Insulin Aspart (Insulin Aspart Per Unit Charge) 0 units SC ACHS [facility] Stop: 11/14/22 20:23 Last Admin: 10/17/22 21:17 Dose: 3 units Insulin Glargine (Lantus Per Unit Charge) 0 units SQ HS [facility]; Protocol Stop: 11/15/22 20:59 Last Admin: 10/17/22 21:16 Dose: 50 units Levalbuterol HCl (Levalbuterol Hcl 0.63 Mg/3 Ml Neb) 0.63 mg INH Q6H PRN; Protocol PRN Reason: Shortness Of Breath Stop: 11/14/22 20:23 Levothyroxine Sodium (Levothyroxine Sodium 100 Mcg Tablet) 100 mcg PO DAILYBB [facility] Stop: 11/15/22 06:29 Last Admin: 10/18/22 05:54 Dose: 100 mcg Linaclotide (Linaclotide 145 Mcg Capsule) 290 mcg PO DAILYBB [facility] Stop: 11/15/22 06:29 Last Admin: 10/18/22 05:54 Dose: 290 mcg Loratadine (Loratadine 10 Mg Tab) 20 mg PO QAM [facility] Stop: 11/15/22 08:59 Last Admin: 10/17/22 08:41 Dose: 20 mg Loxapine Succinate (Loxapine 5 Mg Capsule) 1 each PO TID PRN PRN Reason: Anxiety Stop: 11/15/22 14:59 Last Admin: 10/17/22 08:39 Dose: 1 each Magnesium Oxide (Magnesium Oxide 400 Mg Tab) 400 mg PO QDL [facility] Stop: 11/15/22 11:29 Last Admin: 10/17/22 12:03 Dose: 400 mg Miscellaneous (Carbohydrates For Hypoglycemia ) 15 - 30 gm PO UD PRN PRN Reason: Hypoglycemia Protocol Stop: 11/14/22 20:23 Miscellaneous Information (Pharmacy Glycemic Mgmt Consult) 1 each N/A UD PRN; Protocol PRN Reason: Consult Stop: 11/15/22 02:06 Montelukast Sodium (Montelukast Sodium 10 Mg Tablet) 10 mg PO PM [facility] Stop: 11/14/22 20:59 Last Admin: 10/17/22 21:00 Dose: 10 mg Morphine Sulfate (Morphine Sulfate 4 Mg/Ml 1 Ml Carp\Vial) 4 mg IV Q6H PRN PRN Reason: Severe Pain (Scale 7, 8, 9,10) Stop: 10/29/22 18:36 Last Admin: 10/17/22 08:38 Dose: 4 mg Multivitamins/Minerals (Cerovite Adv Formula Tab) 1 tab PO QDL [facility] Stop: 11/15/22 11:29 Last Admin: 10/17/22 12:03 Dose: 1 tab Nystatin (Nystatin Cr 15 Gm Tube) 1 appln EXT BID PRN PRN Reason: Skin Irritation Stop: 11/14/22 20:23 Ondansetron HCl (Ondansetron Inj 2 Mg/Ml 2 Ml Vial) 4 mg IV Q6H PRN PRN Reason: Nausea Stop: 11/14/22 20:23 Last Admin: 10/15/22 21:25 Dose: 4 mg Pantoprazole Sodium (Pantoprazole 40 Mg Tab) 40 mg PO BID [facility] Stop: 11/14/22 20:59 Last Admin: 10/17/22 21:00 Dose: 40 mg Polyethylene Glycol (Polyethylene (Miralax) 17 Gm Pack) 17 gm PO DAILY PRN PRN Reason: Constipation Stop: 11/14/22 20:23 Sucralfate (Sucralfate 1 Gm Tab) 1 gm PO BID PRN PRN Reason: gastritis Stop: 11/14/22 20:23 Trazodone HCl (Trazodone Hcl 100 Mg Tab) 300 mg PO HS [facility] Stop: 11/14/22 20:59 Last Admin: 10/17/22 21:00 Dose: 300 mg Umeclidinium [place] (Umeclidinium [place] 62.5mcg/Blister 7 Puffs/Inhaler) 1 puffs INH QAM [facility] Stop: 11/15/22 08:59 Last Admin: 10/17/22 08:43 Dose: 1 puffs Venlafaxine HCl (Venlafaxine Hcl Xr 75 Mg Capxr) 75 mg PO QAM [facility] Stop: 11/15/22 08:59 Last Admin: 10/17/22 08:40 Dose: 75 mg Venlafaxine HCl (Venlafaxine Hcl Xr 150 Mg Capxr) 150 mg PO QAM [facility] Stop: 11/15/22 08:59 Last Admin: 10/17/22 08:41 Dose: 150 mg (8) Sleep apnea Sleep apnea type: obstructive Qualified Code(s): G47.33 - Obstructive sleep apnea (adult) (pediatric)
[2022-10-18] MEDS: INSULIN ASPART PER UNIT CHARGE SC SCH (08:14)
[2022-10-18] MEDS ORDERED: INSULIN ASPART 100 UNITS/ML VIAL SC PRN (08:30)
[2022-10-18] MEDS ORDERED: LANTUS PER UNIT CHARGE SC SCH (09:00)
[2022-10-18] MEDS: DAPTOmycin 600 MG in SYRINGE 0 ML IV SCH (10:03)
[2022-10-18] MEDS: FERROUS SULFATE 325 MG TAB PO SCH ×2 (10:12→17:57)
[2022-10-18] MEDS: LORATADINE 10 MG TAB PO SCH (10:12)
[2022-10-18] MEDS: DIVALPROEX EXTENDED RELEASE 500 MG TAB PO SCH (10:13)
[2022-10-18] MEDS: CLOPIDOGREL BISULFATE 75 MG TAB PO SCH (10:13)
[2022-10-18] MEDS: VENLAFAXINE HCL XR 75 MG CAPXR PO SCH (10:13)
[2022-10-18] MEDS: CYANOCOBALAMIN (B-12) 500 MCG TABLET PO SCH (10:14)
[2022-10-18] MEDS: APIXABAN 5 MG TABLET PO SCH ×2 (10:14→21:12)
[2022-10-18] MEDS: VENLAFAXINE HCL XR 150 MG CAPXR PO SCH (10:14)
[2022-10-18] MEDS: BREXPIPRAZOLE 4 MG PO SCH (10:15)
[2022-10-18] MEDS: UMECLIDINIUM BROMIDE 62.5MCG/BLISTER 7 PUFFS/INHALER INH SCH (10:16)
[2022-10-18] MEDS: PANTOprazole 40 MG TAB PO SCH ×2 (10:16→21:14)
[2022-10-18] MEDS: FLUTICASONE/VILANTEROL 100/25MCG 14 PUFFS/INHALER INH SCH (10:17)
[2022-10-18] MEDS: DICYCLOMINE HCL 10 MG CAP PO SCH ×2 (10:19→17:57)
[2022-10-18] MEDS: CEROVITE ADV FORMULA TAB PO SCH (13:33)
[2022-10-18] MEDS: MAGNESIUM OXIDE 400 MG TAB PO SCH (13:33)
[2022-10-18] MEDS: INSULIN, Rapid-Acting PUMP SCH ×4 (15:31→21:21)
[2022-10-18] MEDS: ATORVASTATIN 40 MG TAB PO SCH (15:45)
--- NOTE | 2022-10-18 18:29 | Progress Note ---
Date of Service October 18, 2022 Assessment & Plan (1) Vaginal discharge: Plan OPERATIONS ADMINISTRATIVE ASSISTANT Consult pt seen and examined consult dictated Admission and Anticipated Discharge Date Admission Date: October 16, 2022 Results & Data Vital Signs (Past 12 Hours) Vital Signs Temp Pulse Pulse Resp BP Pulse Ox O2 Del Method 10/18/22 14:25 115 H 10/18/22 14:52 36.8 C 109 H 20 108/71 94 Nasal Cannula 10/18/22 11:38 36.7 C 107 H 20 103/67 94 Oxymask 10/18/22 07:55 36.7 C 89 20 100/67 93 Nasal Cannula 10/18/22 07:35 86 18 91 Room Air O2 Flow Rate 10/18/22 14:25 10/18/22 14:52 2 10/18/22 11:38 2 10/18/22 07:55 2 10/18/22 07:35
[2022-10-18] MEDS: FLUCONAZOLE 50 MG TAB PO SCH (21:07)
[2022-10-18] MEDS: ATENOLOL 25 MG TABLET PO SCH (21:12)
[2022-10-18] MEDS: MONTELUKAST SODIUM 10 MG TABLET PO SCH (21:13)
[2022-10-18] MEDS: traZODone HCL 100 MG TAB PO SCH (21:13)
[2022-10-18] MEDS: FAMOTIDINE 40 MG TABLET PO SCH (21:13)
[2022-10-18] MEDS: clonazePAM 0.5 MG TAB PO SCH (21:25)
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
[2022-10-19] MEDS: diphenhydrAMINE Capsule 25 MG CAP PO SCH ×3 (01:56→16:18)
[2022-10-19] MEDS: LEVOTHYROXINE SODIUM 100 MCG TABLET PO SCH (05:44)
[2022-10-19] MEDS: LINACLOTIDE 145 MCG CAPSULE PO SCH (05:44)
[2022-10-19] MEDS: ALBUTEROL HFA 8 GM INHALER INH SCH ×2 (07:03→19:21)
[2022-10-19] MEDS: BREXPIPRAZOLE 4 MG PO SCH (08:54)
[2022-10-19] MEDS: DICYCLOMINE HCL 10 MG CAP PO SCH ×2 (08:55→16:19)
[2022-10-19] MEDS: UMECLIDINIUM BROMIDE 62.5MCG/BLISTER 7 PUFFS/INHALER INH SCH (08:55)
[2022-10-19] MEDS: DAPTOmycin 600 MG in SYRINGE 0 ML IV SCH (08:55)
[2022-10-19] MEDS: FLUTICASONE/VILANTEROL 100/25MCG 14 PUFFS/INHALER INH SCH (08:55)
[2022-10-19] MEDS: DIVALPROEX EXTENDED RELEASE 500 MG TAB PO SCH (08:56)
[2022-10-19] MEDS: APIXABAN 5 MG TABLET PO SCH ×2 (08:56→21:42)
[2022-10-19] MEDS: CLOPIDOGREL BISULFATE 75 MG TAB PO SCH (08:56)
[2022-10-19] MEDS: VENLAFAXINE HCL XR 150 MG CAPXR PO SCH (08:56)
[2022-10-19] MEDS: FERROUS SULFATE 325 MG TAB PO SCH ×2 (08:56→16:20)
[2022-10-19] MEDS: LORATADINE 10 MG TAB PO SCH (08:56)
[2022-10-19] MEDS: PANTOprazole 40 MG TAB PO SCH ×2 (08:56→21:41)
[2022-10-19] MEDS: CYANOCOBALAMIN (B-12) 500 MCG TABLET PO SCH (08:56)
[2022-10-19] MEDS: VENLAFAXINE HCL XR 75 MG CAPXR PO SCH (08:57)
[2022-10-19] MEDS: INSULIN, Rapid-Acting PUMP SCH ×4 (08:58→21:47)
[2022-10-19] MEDS: AZTREONAM 2,000 MG in DEXTROSE 5% 100 ML IV SCH ×2 (09:15→17:12)
[2022-10-19 09:43] LABS: Hematocrit (blood only) 37.7 % (37.0-47.0); Hemoglobin 11.8 g/dl (12.0-16.0); Mean Corpuscular Hemoglobin 30.6 pg (25.0-34.0); Mean Corpuscular Hgb Conc 31.3 g/dL (32.0-36.0); Mean Corpuscular Volume 97.9 fL (80.0-100.0); Mean Platelet Volume 10.8 fL (9.4-12.4); Platelet Count 302 K/uL (130-400); RDW Coefficient of Variation 19.6 % (11.5-14.5); RDW Standard Deviation 70.1 fL (36.4-46.3); Red Blood Count 3.85 M/uL (4.20-5.40); White Blood Count 6.28 K/ul (4.8-10.8)
[2022-10-19 10:11] LABS: Anion Gap 9 (3-11); BUN Creatinine Ratio 26.3 (10-20); Blood Urea Nitrogen 10 mg/dl (6-23); Calcium 9.4 mg/dl (8.6-10.3); Carbon Dioxide 28 mmol/L (21-32); Chloride 102 mmol/L (98-107); Creatinine Clr Calc Pharmacy 162.3 ml/min; Est GFR (African American) > 150.0 ml/min; Est GFR (Non-African American) 137.2 ml/min; Glucose 207 mg/dl (70-99(Fasting)); Magnesium 2.1 mg/dl (1.7-2.4); Phosphorus 5.1 mg/dl (2.5-4.9); Sodium 139 mmol/L (136-145)
[2022-10-19] MEDS: HEPARIN 100 UNIT/ML 5ML FLUSH FLUSH PRN (10:40)
[2022-10-19] MEDS: CEROVITE ADV FORMULA TAB PO SCH (12:31)
[2022-10-19] MEDS: MAGNESIUM OXIDE 400 MG TAB PO SCH (12:31)
[2022-10-19] MEDS: ATORVASTATIN 40 MG TAB PO SCH (16:20)
--- NOTE | 2022-10-19 16:44 | Hospitalist Progress Note ---
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 She is being managed for the following: Bilateral flank pain Recent MRSA bacteremia, Morganella UTI Per ID, discharged on IV Aztreonam (completed on 10/06) and Dapto (scheduled through October 19) At presentation, recurrent flank pain for 24hrs after previously feeling better ID evaled, aztreonam to replace ceftazidime. Pt done w/ Dapto course today. Urine/vaginal/blood culture reviewed. We will reach out to ID tomorrow for final recommendation on antibiotic. Blood cultures so far negative, urine culture positive for gram-negative bacilli b/l flank pain improving today. Right labial cellulitis 09/21 Vulva culture growing Pseudomonas, MRSA Treated with Diflucan for 2 doses, discharged on Invanz, Dapto Continue abx as above Appreciate MUSEUM SECURITY CHIEF input Poorly controlled DM II HbA1c 7.9 Recently started on insulin pump, reports difficulty controlling bsg at home with bsg >600 x 1 week In ER BSG 496 and was given IV insulin, blood glc still not controlled next day Glycemic pharmacy consulted, clinical staff educator consulted for pump 10/18 -patient now back on pump, and blood sugars much better controlled. Continue to monitor closely. Elevated lactic acid -> resolved In setting of hyperglycemia. Initially 2.2 -> 2.0 on repeat Pseudohyponatremia 2/2 hyperglycemia. Corrected sodium within range Stroke alert - 5/14 AM d/t R-sided numbness - CT/A head and neck negative - per para educator's conversation w/ stroke neurologist - recommend to repeat CT head in 24 hrs and add plavix (pt is already on eliquis) - CT head repeated - negative, also any symptoms of numbness resolved. - inpt neurology evaluated - consider resuming statin (on hold d/t daptomycin), obtained ck level and <10, resumed statin Hypertension: Continue atenolol and Lasix as able Obstructive sleep apnea: Obesity hypoventilation syndrome. On BiPAP at night Hypothyroidism: on levothyroxine Hyperlipidemia: c/w ator. Chronic hypoxic hypercarbic respiratory failure: Continue BiPAP, supplemental oxygen Bipolar disorder Depression Continue home medications. H/O spina bifida: S/P ventriculoperitoneal shunt Chronic migraines: Continue home medications. Morbid obesity: BMI 47 H/O PE: Continue Eliquis DVT Ppx: Eliquis Code status: FULL PCP: Dr. Clemons Dispo: med/tele Admission and Anticipated Discharge Date Admission Date: October 16, 2022 Subjective Patient seen and examined at bedside as a follow-up of bilateral flank pain, right labia cellulitis, poorly controlled diabetes type 2, stroke alert in the a.m. of 10/16. Patient was lying in bed, on room air, reports no new acute event overnight, reports eating at her baseline, denies any further abdominal pain or flank pain, reports good output by ostomy bag. Denies any fevers or chills or headache or chest pain. Physical Exam Physical Exam: General: Morbidly obese young F, in NAD HEENT: EOMI, PERRL, MMM Chest: Clear breath sounds bilaterally, no wheezes or crackles CVS: Regular rate and rhythm, normal heart sounds, no murmur Abdomen: Soft, non tender, not distended, normal bowel sounds. Colostomy with stool; urostomy with clear urine in bag Neuro: Awake, alert, oriented, conversing well Extremities: Bilateral BKA CVA tenderness resolved, + labial erythema Results & Data Results & Data Vital Signs (Past 12 Hours) Vital Signs Temp Pulse Pulse Pulse Resp BP Pulse Ox 10/19/22 15:18 36.6 C 86 20 105/71 92 10/19/22 14:07 86 10/19/22 11:30 36.8 C 88 20 110/72 94 10/19/22 08:45 10/19/22 08:07 36.5 C 83 20 95/63 L 93 10/19/22 07:03 99 H 17 91 O2 Del Method 10/19/22 15:18 Room Air 10/19/22 14:07 10/19/22 11:30 Room Air 10/19/22 08:45 Room Air 10/19/22 08:07 Room Air 10/19/22 07:03 Room Air (8) Sleep apnea Sleep apnea type: obstructive Qualified Code(s): G47.33 - Obstructive sleep apnea (adult) (pediatric)
[2022-10-19] MEDS: FLUCONAZOLE 50 MG TAB PO SCH (17:10)
[2022-10-19] MEDS: FAMOTIDINE 40 MG TABLET PO SCH (21:40)
[2022-10-19] MEDS: clonazePAM 0.5 MG TAB PO SCH (21:40)
[2022-10-19] MEDS: MONTELUKAST SODIUM 10 MG TABLET PO SCH (21:41)
[2022-10-19] MEDS: traZODone HCL 100 MG TAB PO SCH (21:41)
[2022-10-19] MEDS: ATENOLOL 25 MG TABLET PO SCH (21:41)
[2022-10-20] MEDS: diphenhydrAMINE Capsule 25 MG CAP PO SCH ×3 (00:55→20:20)
[2022-10-20] MEDS: AZTREONAM 2,000 MG in DEXTROSE 5% 100 ML IV SCH ×3 (02:01→20:17)
[2022-10-20] MEDS: LINACLOTIDE 145 MCG CAPSULE PO SCH (06:01)
[2022-10-20] MEDS: LEVOTHYROXINE SODIUM 100 MCG TABLET PO SCH (06:01)
[2022-10-20] MEDS: ALBUTEROL HFA 8 GM INHALER INH SCH ×2 (07:01→19:30)
[2022-10-20 07:29] LABS: Anion Gap 7 (3-11); BUN Creatinine Ratio 22.9 (10-20); Blood Urea Nitrogen 8 mg/dl (6-23); Calcium 9.2 mg/dl (8.6-10.3); Carbon Dioxide 29 mmol/L (21-32); Chloride 104 mmol/L (98-107); Creatinine Clr Calc Pharmacy 176.2 ml/min; Est GFR (African American) > 150.0 ml/min; Glucose 149 mg/dl (70-99(Fasting)); Phosphorus 4.5 mg/dl (2.5-4.9); Sodium 140 mmol/L (136-145)
[2022-10-20] MEDS: INSULIN, Rapid-Acting PUMP SCH ×4 (09:00→20:30)
[2022-10-20] MEDS: MAGNESIUM OXIDE 400 MG TAB PO SCH (09:59)
[2022-10-20] MEDS: VENLAFAXINE HCL XR 150 MG CAPXR PO SCH (09:59)
[2022-10-20] MEDS: CLOPIDOGREL BISULFATE 75 MG TAB PO SCH (09:59)
[2022-10-20] MEDS: FERROUS SULFATE 325 MG TAB PO SCH ×2 (09:59→17:58)
[2022-10-20] MEDS: CEROVITE ADV FORMULA TAB PO SCH (09:59)
[2022-10-20] MEDS: DIVALPROEX EXTENDED RELEASE 500 MG TAB PO SCH (09:59)
[2022-10-20] MEDS: CYANOCOBALAMIN (B-12) 500 MCG TABLET PO SCH (09:59)
[2022-10-20] MEDS: DICYCLOMINE HCL 10 MG CAP PO SCH ×2 (09:59→17:58)
[2022-10-20] MEDS: VENLAFAXINE HCL XR 75 MG CAPXR PO SCH (09:59)
[2022-10-20] MEDS: LORATADINE 10 MG TAB PO SCH (10:00)
[2022-10-20] MEDS: PANTOprazole 40 MG TAB PO SCH ×2 (10:00→20:22)
[2022-10-20] MEDS: APIXABAN 5 MG TABLET PO SCH ×2 (10:00→20:21)
[2022-10-20] MEDS: BREXPIPRAZOLE 4 MG PO SCH (10:11)
[2022-10-20] MEDS: FLUTICASONE/VILANTEROL 100/25MCG 14 PUFFS/INHALER INH SCH (10:11)
[2022-10-20] MEDS: LOXAPINE 5 MG PO PRN (10:11)
[2022-10-20] MEDS: UMECLIDINIUM BROMIDE 62.5MCG/BLISTER 7 PUFFS/INHALER INH SCH (10:12)
[2022-10-20] MEDS: ACETAMINOPHEN 325 MG TAB PO PRN (15:37)
--- NOTE | 2022-10-20 16:26 | Hospitalist Progress Note ---
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 She is being managed for the following: Bilateral flank pain Recent MRSA bacteremia, Morganella UTI Per ID, discharged on IV Aztreonam (completed on 10/06) and Dapto (scheduled through October 19) At presentation, recurrent flank pain for 24hrs after previously feeling better ID evaled, aztreonam to replace ceftazidime. Pt done w/ Dapto course 10/19. d/w ID 10/20- Aztreonam for another 10 days and fluconazole 400 mg daily for same interval. Urine/vaginal/blood culture reviewed - MDRO Ps Aeruginosa noted. Blood cultures so far negative, urine culture positive for gram-negative bacilli b/l flank pain resolved. Right labial cellulitis 09/21 Vulva culture growing Pseudomonas, MRSA Treated with Diflucan for 2 doses, discharged on Invanz, Dapto Continue abx as above Appreciate LOAD OUT WORKER input, on fluconazole Poorly controlled DM II HbA1c 7.9 Recently started on insulin pump, reports difficulty controlling bsg at home with bsg >600 x 1 week In ER BSG 496 and was given IV insulin, blood glc still not controlled next day Glycemic pharmacy consulted, matlab developer consulted for pump 10/18 -patient now back on pump, and blood sugars much better controlled. Continue to monitor closely. Elevated lactic acid -> resolved In setting of hyperglycemia. Initially 2.2 -> 2.0 on repeat Pseudohyponatremia 2/2 hyperglycemia. Corrected sodium within range Stroke alert - 14 AM d/t R-sided numbness - CT/A head and neck negative - per customer equipment engineer's conversation w/ stroke neurologist - recommend to repeat CT head in 24 hrs and add plavix (pt is already on eliquis) - CT head repeated - negative, also any symptoms of numbness resolved. - inpt neurology evaluated - consider resuming statin (on hold d/t daptomycin), obtained ck level and <10, resumed statin Hypertension: Continue atenolol and Lasix as able Obstructive sleep apnea: Obesity hypoventilation syndrome. On BiPAP at night Hypothyroidism: on levothyroxine Hyperlipidemia: c/w ator. Chronic hypoxic hypercarbic respiratory failure: Continue BiPAP, supplemental oxygen Bipolar disorder Depression Continue home medications. H/O spina bifida: S/P ventriculoperitoneal shunt Chronic migraines: Continue home medications. Morbid obesity: BMI 47 H/O PE: Continue Eliquis DVT Ppx: Eliquis Code status: FULL PCP: Dr. Clemons Dispo: med/tele, likely DC christina, on Aztreonam and fluco for 10 days. Admission and Anticipated Discharge Date Admission Date: October 16, 2022 Subjective Patient seen and examined at bedside as a follow-up of bilateral flank pain, right labia cellulitis, poorly controlled diabetes type 2, stroke alert in the a.m. of 10/16. Patient was lying in bed, on room air, reports no new acute event overnight, reports eating at her baseline, denies any further abdominal pain or flank pain, reports good output by ostomy bag. Denies any fevers or chills or headache or chest pain. Physical Exam Physical Exam: General: Morbidly obese young F, in NAD HEENT: EOMI, PERRL, MMM Chest: Clear breath sounds bilaterally, no wheezes or crackles CVS: Regular rate and rhythm, normal heart sounds, no murmur Abdomen: Soft, non tender, not distended, normal bowel sounds. Colostomy with stool; urostomy with clear urine in bag Neuro: Awake, alert, oriented, conversing well Extremities: Bilateral BKA CVA tenderness resolved, + labial erythema Results & Data Results & Data Vital Signs (Past 12 Hours) Vital Signs Temp Pulse Pulse Resp BP Pulse Ox O2 Del Method 10/20/22 14:59 36.8 C 99 H 18 138/83 94 Room Air 10/20/22 11:27 36.4 C L 94 H 18 148/79 H 94 Room Air 10/20/22 08:10 88 10/20/22 07:42 36.9 C 83 20 120/74 90 Room Air 10/20/22 07:01 83 16 95 Room Air 10/20/22 04:44 Room Air (8) Sleep apnea Sleep apnea type: obstructive Qualified Code(s): G47.33 - Obstructive sleep apnea (adult) (pediatric)
[2022-10-20] MEDS: FLUCONAZOLE 100 MG TAB PO SCH (17:58)
[2022-10-20] MEDS: ATORVASTATIN 40 MG TAB PO SCH (17:58)
[2022-10-20] MEDS: ATENOLOL 25 MG TABLET PO SCH (20:21)
[2022-10-20] MEDS: FAMOTIDINE 40 MG TABLET PO SCH (20:22)
[2022-10-20] MEDS: MONTELUKAST SODIUM 10 MG TABLET PO SCH (20:22)
[2022-10-20] MEDS: traZODone HCL 100 MG TAB PO SCH (20:23)
[2022-10-20] MEDS: clonazePAM 0.5 MG TAB PO SCH (20:32)
[2022-10-20] MEDS: ONDANSETRON INJ 2 MG/ML 2 ML VIAL IV PRN (20:32)
[2022-10-20] MEDS ORDERED: LORazepam 0.5 MG TAB PO STA (22:35)
[2022-10-20] MEDS ORDERED: Nursing to Pharmacy Communication SCH (22:45)
[2022-10-21] MEDS ORDERED: Nursing to Pharmacy Communication SCH ×3 (01:15→23:45)
[2022-10-21] MEDS: AZTREONAM 2,000 MG in DEXTROSE 5% 100 ML IV SCH (03:54)
[2022-10-21] MEDS: diphenhydrAMINE Capsule 25 MG CAP PO SCH ×3 (03:55→22:20)
[2022-10-21] MEDS: LINACLOTIDE 145 MCG CAPSULE PO SCH (06:35)
[2022-10-21] MEDS: LEVOTHYROXINE SODIUM 100 MCG TABLET PO SCH (06:35)
[2022-10-21] MEDS: HEPARIN 100 UNIT/ML 5ML FLUSH FLUSH PRN (06:35)
[2022-10-21] MEDS: ALBUTEROL HFA 8 GM INHALER INH SCH ×2 (07:52→19:29)
[2022-10-21] MEDS: DICYCLOMINE HCL 10 MG CAP PO SCH ×2 (08:49→17:00)
[2022-10-21] MEDS: MAGNESIUM OXIDE 400 MG TAB PO SCH (08:50)
[2022-10-21] MEDS: APIXABAN 5 MG TABLET PO SCH ×2 (08:50→22:22)
[2022-10-21] MEDS: CYANOCOBALAMIN (B-12) 500 MCG TABLET PO SCH (08:50)
[2022-10-21] MEDS: VENLAFAXINE HCL XR 75 MG CAPXR PO SCH (08:50)
[2022-10-21] MEDS: LORATADINE 10 MG TAB PO SCH (08:51)
[2022-10-21] MEDS: FERROUS SULFATE 325 MG TAB PO SCH ×2 (08:51→17:00)
[2022-10-21] MEDS: CEROVITE ADV FORMULA TAB PO SCH (08:51)
[2022-10-21] MEDS: CLOPIDOGREL BISULFATE 75 MG TAB PO SCH (08:51)
[2022-10-21] MEDS: VENLAFAXINE HCL XR 150 MG CAPXR PO SCH (08:51)
[2022-10-21] MEDS: FLUTICASONE/VILANTEROL 100/25MCG 14 PUFFS/INHALER INH SCH (08:52)
[2022-10-21] MEDS: DIVALPROEX EXTENDED RELEASE 500 MG TAB PO SCH (08:52)
[2022-10-21] MEDS: PANTOprazole 40 MG TAB PO SCH ×2 (08:52→22:25)
[2022-10-21] MEDS: UMECLIDINIUM BROMIDE 62.5MCG/BLISTER 7 PUFFS/INHALER INH SCH (08:52)
[2022-10-21] MEDS: LOXAPINE 5 MG PO PRN (08:53)
[2022-10-21] MEDS: INSULIN, Rapid-Acting PUMP SCH ×4 (09:00→22:23)
[2022-10-21] MEDS: BREXPIPRAZOLE 4 MG PO SCH (11:23)
[2022-10-21] MEDS: ATORVASTATIN 40 MG TAB PO SCH (17:00)
--- NOTE | 2022-10-21 17:07 | Hospitalist Progress Note ---
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 She is being managed for the following: Bilateral flank pain Recent MRSA bacteremia, Morganella UTI Per ID, discharged on IV Aztreonam (completed on 10/06) and Dapto (scheduled through October 19) At presentation, recurrent flank pain for 24hrs after previously feeling better ID evaluated, patient to be on ceftazidime and fluconazole for 10 days, patient to follow-up with ID upon discharge. Urine/vaginal/blood culture reviewed - MDRO Ps Aeruginosa noted-resistant to aztreonam as well. Blood cultures so far negative, urine culture positive for gram-negative bacilli b/l flank pain resolved. Right labial cellulitis 09/21 Vulva culture growing Pseudomonas, MRSA Treated with Diflucan for 2 doses, discharged on Invanz, Dapto Continue abx as above Appreciate NEURO OPHTHALMOLOGIST input, on fluconazole Poorly controlled DM II HbA1c 7.9 Recently started on insulin pump, reports difficulty controlling bsg at home with bsg >600 x 1 week In ER BSG 496 and was given IV insulin, blood glc still not controlled next day Glycemic pharmacy consulted, ems educator consulted for pump 10/18 -patient now back on pump, and blood sugars much better controlled. Continue to monitor closely. Elevated lactic acid -> resolved In setting of hyperglycemia. Initially 2.2 -> 2.0 on repeat Pseudohyponatremia 2/2 hyperglycemia. Corrected sodium within range Stroke alert - 5/14 AM d/t R-sided numbness - CT/A head and neck negative - per stick welder's conversation w/ stroke neurologist - recommend to repeat CT head in 24 hrs and add plavix (pt is already on eliquis) - CT head repeated - negative, also any symptoms of numbness resolved. - inpt neurology evaluated - consider resuming statin (on hold d/t daptomycin), obtained ck level and <10, resumed statin Hypertension: Continue atenolol and Lasix as able Obstructive sleep apnea: Obesity hypoventilation syndrome. On BiPAP at night Hypothyroidism: on levothyroxine Hyperlipidemia: c/w ator. Chronic hypoxic hypercarbic respiratory failure: Continue BiPAP, supplemental oxygen Bipolar disorder Depression Continue home medications. H/O spina bifida: S/P ventriculoperitoneal shunt Chronic migraines: Continue home medications. Morbid obesity: BMI 47 H/O PE: Continue Eliquis DVT Ppx: Eliquis Code status: FULL PCP: Dr. Clemons Dispo: med/tele, likely DC christina, on ceftazidime eonam and fluco for 10 days. Admission and Anticipated Discharge Date Admission Date: October 16, 2022 Subjective Patient seen and examined at bedside as a follow-up of bilateral flank pain, right labia cellulitis, poorly controlled diabetes type 2, stroke alert in the a.m. of 10/16. Patient was lying in bed, on room air, reports no new acute event overnight, reports eating at her baseline, denies any further abdominal pain or flank pain, reports good output by ostomy bag. Denies any fevers or chills or headache or chest pain. Patient's mom at bedside, updated about her current management and answered all her questions. Physical Exam Physical Exam: General: Morbidly obese young F, in NAD HEENT: EOMI, PERRL, MMM Chest: Clear breath sounds bilaterally, no wheezes or crackles CVS: Regular rate and rhythm, normal heart sounds, no murmur Abdomen: Soft, non tender, not distended, normal bowel sounds. Colostomy with stool; urostomy with clear urine in bag Neuro: Awake, alert, oriented, conversing well Extremities: Bilateral BKA CVA tenderness resolved, + labial erythema Results & Data Results & Data Vital Signs (Past 12 Hours) Vital Signs Temp Pulse Resp BP Pulse Ox O2 Del Method 10/21/22 16:46 36.8 C 81 16 113/78 93 Room Air 10/21/22 16:12 Room Air, BiPAP 10/21/22 11:45 36.5 C 87 18 125/79 94 Room Air 10/21/22 07:53 80 18 89 L Room Air 10/21/22 07:40 36.4 C L 72 18 124/78 94 Room Air (8) Sleep apnea Sleep apnea type: obstructive Qualified Code(s): G47.33 - Obstructive sleep apnea (adult) (pediatric)
[2022-10-21] MEDS: FLUCONAZOLE 100 MG TAB PO SCH (17:59)
[2022-10-21] MEDS: ONDANSETRON INJ 2 MG/ML 2 ML VIAL IV PRN (22:13)
[2022-10-21] MEDS: clonazePAM 0.5 MG TAB PO SCH (22:20)
[2022-10-21] MEDS: ATENOLOL 25 MG TABLET PO SCH (22:21)
[2022-10-21] MEDS: MONTELUKAST SODIUM 10 MG TABLET PO SCH (22:22)
[2022-10-21] MEDS: FAMOTIDINE 40 MG TABLET PO SCH (22:22)
[2022-10-21] MEDS: traZODone HCL 100 MG TAB PO SCH (22:23)
[2022-10-22] MEDS: LEVOTHYROXINE SODIUM 100 MCG TABLET PO SCH (05:37)
[2022-10-22] MEDS: diphenhydrAMINE Capsule 25 MG CAP PO SCH (05:37)
[2022-10-22] MEDS: LINACLOTIDE 145 MCG CAPSULE PO SCH (05:37)
[2022-10-22] MEDS: HEPARIN 100 UNIT/ML 5ML FLUSH FLUSH PRN (05:38)
[2022-10-22] MEDS: ONDANSETRON INJ 2 MG/ML 2 ML VIAL IV PRN (06:00)
[2022-10-22] MEDS: ALBUTEROL HFA 8 GM INHALER INH SCH (07:53)
[2022-10-22] MEDS: FERROUS SULFATE 325 MG TAB PO SCH (08:19)
[2022-10-22] MEDS: VENLAFAXINE HCL XR 150 MG CAPXR PO SCH (08:19)
[2022-10-22] MEDS: CYANOCOBALAMIN (B-12) 500 MCG TABLET PO SCH (08:19)
[2022-10-22] MEDS: LORATADINE 10 MG TAB PO SCH (08:20)
[2022-10-22] MEDS: VENLAFAXINE HCL XR 75 MG CAPXR PO SCH (08:20)
[2022-10-22] MEDS: CLOPIDOGREL BISULFATE 75 MG TAB PO SCH (08:20)
[2022-10-22] MEDS: DICYCLOMINE HCL 10 MG CAP PO SCH (08:21)
[2022-10-22] MEDS: APIXABAN 5 MG TABLET PO SCH (08:21)
[2022-10-22] MEDS: PANTOprazole 40 MG TAB PO SCH (08:21)
[2022-10-22] MEDS: UMECLIDINIUM BROMIDE 62.5MCG/BLISTER 7 PUFFS/INHALER INH SCH (08:22)
[2022-10-22] MEDS: FLUTICASONE/VILANTEROL 100/25MCG 14 PUFFS/INHALER INH SCH (08:22)
[2022-10-22] MEDS: LOXAPINE 5 MG PO PRN (08:24)
[2022-10-22] MEDS: BREXPIPRAZOLE 4 MG PO SCH (08:24)
[2022-10-22] MEDS: DIVALPROEX EXTENDED RELEASE 500 MG TAB PO SCH (08:27)
[2022-10-22] MEDS: INSULIN, Rapid-Acting PUMP SCH (08:41)
--- NOTE | 2022-10-22 10:15 | Discharge Summary ---
Date of Service October 22, 2022 Admission HPI Per Admitting Provider This is a 37yo F with a PMH of spina bifida, bilateral below-knee amputation due to MRSA infection, wheelchair bound, diabetes type 2, on insulin, morbid obesity, obstructive sleep apnea, hypothyroidism, depression, bipolar disorder, status post MANAGED SERVICES CONSULTANT shunt, status post colostomy and urostomy, history of multiple drug resistants recurrent UTI, history of PE, on Eliquis, chronic posttraumatic stress disorder, generalized anxiety disorder, eating disorder, ADHD, history of asthma who presents with flank pain. Was recently admitted for Morganella UTI treated with Aztreonam per ID as well as having a labial lesion growing pseudomonas and MRSA and MRSA bacteremia treated with IV Dapto. Was discharged home on 10/02 on Aztreonam which she completed on 10/06 and is continuing IV Dapto through 10/19. Returns with bilateral flank pain for the past 24 hours and concern for recurrent UTI. States that this is typically her first symptom when she is having a UTI. Also endorses nausea but no vomiting. Having similar discomfort at labial lesion site she was previous seen by OB for during last admission. Mom has seen some blood-tinged with dressing changes. Denies any fever, chills, lightheadedness, chest pain, shortness of breath, abdominal pain, diarrhea or constipation. Admission Exam Per Admitting Provider General: Morbidly obese, lying comfortably in bed, not in acute distress, on NC HEENT: EOMI, MEAGHAN, MMM Chest: Clear breath sounds bilaterally, no wheezes or crackles CVS: Regular rate and rhythm, normal heart sounds, no murmur Abdomen: Soft, non tender, not distended, normal bowel sounds. Colostomy with stool; urostomy with clear urine in bag Neuro: Awake, alert, oriented, conversing well, non focal Extremities: Bilateral BKA : Mild CVA tenderness Principal Diagnosis Bilateral flank pain, likely complicated UTI Right labial cellulitis Poorly controlled DM2 Discharge Exam General: Morbidly obese young F, in NAD HEENT: EOMI, PERRL, MMM Chest: Clear breath sounds bilaterally, no wheezes or crackles CVS: Regular rate and rhythm, normal heart sounds, no murmur Abdomen: Soft, non tender, not distended, normal bowel sounds. Colostomy with stool; urostomy with clear urine in bag Neuro: Awake, alert, oriented, conversing well Extremities: Bilateral BKA CVA tenderness resolved, + labial erythema Discharge Data Allergies Allergy/AdvReac Type Severity Reaction Status Date / Time chlorhexidine Allergy Severe blisters Verified 10/15/22 16:37 adhesive Allergy Intermediate TAPE- HIVES Verified 10/15/22 16:37 ciprofloxacin Allergy Intermediate hives Verified 10/15/22 16:37 clindamycin Allergy Intermediate Redness/Itc Verified 10/15/22 16:37 hiness imipenem Allergy Intermediate May Verified 10/15/22 16:37 use-See comment levofloxacin Allergy Intermediate rash,HEARD Verified 10/15/22 16:37 VOICES linezolid Allergy Intermediate rash Verified 10/15/22 16:37 vancomycin Allergy Intermediate May use - Verified 10/15/22 16:37 See comment piperacillin [From Zosyn] Allergy Mild may Verified 10/15/22 16:37 use-see comment tazobactam [From Zosyn] Allergy Mild See Verified 10/15/22 16:37 piperacillin comment amikacin Allergy Unknown PER DR Verified 10/15/22 16:37 ROBINS,RXN WAS TO ZOSYN NOT AMKrash;hives onabotulinumtoxinA Allergy Unknown Rash/swelling Verified 10/15/22 16:37 [From Botox] at injection site cefepime Allergy rash on Verified 10/15/22 16:37 cefepime ([id number]) buspirone AdvReac Severe HALLUCINATI Verified 10/15/22 16:37 ONS aspirin AdvReac Intermediate interaction Verified 10/16/22 07:38 w psych meds as per px latex AdvReac Mild Rash Verified 10/15/22 16:37 Consultations 10/15/22 17:45 ED Decision to Admit Stat 10/15/22 18:36 Consult Obstetrics Routine 10/16/22 08:04 Consult Neurology Routine 10/16/22 08:40 Consult Neurology Routine 10/17/22 09:19 Consult Infectious Diseases Routine Ordered Studies 10/15/22 15:16 CT abd pelvis wo con Stat 10/16/22 06:05 CT angio head w con Stat CT angio neck with con Stat CT head/brain wo con Stat 10/17/22 06:00 CT head/brain wo con Routine Hospital Course (1) Bilateral flank pain: (2) MRSA bacteremia: (3) Vulvar edema: (4) Frequent urinary tract infections: (5) Insulin-requiring or dependent type II diabetes mellitus: (6) Neurogenic bladder: (7) Spina bifida: (8) Sleep apnea: Plan 37yo F with a PMH of spina bifida, bilateral below-knee amputation due to MRSA infection, wheelchair bound, diabetes type 2, on insulin, morbid obesity, obstructive sleep apnea, hypothyroidism, depression, bipolar disorder, status post MANAGED SERVICES CONSULTANT shunt, status post colostomy and urostomy, history of multiple drug resistants recurrent UTI, history of PE, on Eliquis, chronic posttraumatic stress disorder, generalized anxiety disorder, eating disorder, ADHD, history of asthma who presents with flank pain. She was managed for the following: Bilateral flank pain Recent MRSA bacteremia, Morganella UTI Per ID, discharged on IV Aztreonam (completed on 10/06) and Dapto (scheduled through October 19) At presentation, recurrent flank pain for 24hrs after previously feeling better ID evaluated, patient to be on ceftazidime and fluconazole for 10 days, patient to follow-up with ID upon discharge. Urine/vaginal/blood culture reviewed - MDRO Ps Aeruginosa noted-resistant to aztreonam as well. Blood cultures so far negative, urine culture positive for gram-negative bacilli b/l flank pain resolved. Right labial cellulitis 09/21 Vulva culture growing Pseudomonas, MRSA Treated with Diflucan for 2 doses, discharged on Invanz, Dapto Continue abx as above Appreciate SUPERVISOR PASTRY input, on fluconazole Poorly controlled DM II HbA1c 7.9 Recently started on insulin pump, reports difficulty controlling bsg at home with bsg >600 x 1 week In ER BSG 496 and was given IV insulin, blood glc still not controlled next day Glycemic pharmacy consulted, clinical nurse educator consulted for pump 10/18 -patient now back on pump, and blood sugars much better controlled. Continue to monitor closely. Elevated lactic acid -> resolved In setting of hyperglycemia. Initially 2.2 -> 2.0 on repeat Pseudohyponatremia 2/2 hyperglycemia. Corrected sodium within range Stroke alert - 5/14 AM d/t R-sided numbness - CT/A head and neck negative - per warehouse foreman's conversation w/ stroke neurologist - recommend to repeat CT head in 24 hrs and add plavix (pt is already on eliquis) - CT head repeated - negative, also any symptoms of numbness resolved. - inpt neurology evaluated - consider resuming statin (on hold d/t daptomycin), obtained ck level and <10, resumed statin Hypertension: Continue atenolol and Lasix as able Obstructive sleep apnea: Obesity hypoventilation syndrome. On BiPAP at night Hypothyroidism: on levothyroxine Hyperlipidemia: c/w ator. Chronic hypoxic hypercarbic respiratory failure: Continue BiPAP, supplemental oxygen Bipolar disorder Depression Continue home medications. H/O spina bifida: S/P ventriculoperitoneal shunt Chronic migraines: Continue home medications. Morbid obesity: BMI 47 H/O PE: Continue Eliquis DVT Ppx: Eliquis Code status: FULL PCP: Dr. Clemons Dispo: med/tele, likely DC christina, on ceftazidime eonam and fluco for 10 days. Patient being discharged home with home health with following instruction at the point of discharge: Follow-up with your primary care physician within 1 week, likely you will need labs CBC/CMP/magnesium/phosphorus. Continue with IV antibiotic and fluconazole, follow-up with infectious disease doctor in 1 to 2 weeks time. Follow-up with the diabetic clinic closely for long-term management of your diabetes. Follow-up with your neurology as an outpatient. Take your medications as prescribed. Please make sure that you are able to get your medications today by calling your pharmacy before you leave the hospital so that your treatment continuity is not broken. Home Health Attestation I certify that this patient is under my care and that I, or a physicians assisted living assistant working with me, had a face to-face encounter that meets the home health dfrv-ms-oewy encounter requirements with this patient. The encounter with the patient was in whole, or in part, for the following medic al condition, which is the primary reason for home health care (list medical condition): I certify that, based on my findings, the following services are medically necessary home health services: My clinical findings support the need for the above services because: Skilled Nsg Assessment Further, I certify that my clinical findings support that this patient is homebound (i.e. absences from home require considerable and taxing effort and are for medical reasons or restorationist services or infrequently or of short dur ation when for other reasons) because: Certification for Home Health Services: Based on the above findings, I certify that this patient is confined to the home and needs intermittent penitentiary care, physical therapy and/or speech therapy or continues to need occupational therapy. The patient is under my care, and I have initiated the establishment of the plan of care. This patient will be followed by a physician who will periodically review the plan of care. Total Time Total Time Spent Total Time Spent (In Minutes): 55 Discharge Plan Discharge Items Patient Disposition: Home - Home Health Services Reason For Visit: FLANK PAIN, LABIAL LESION PAIN Discharge Diagnosis: Bilateral flank pain, likely complicated UTI Right labial cellulitis Poorly controlled DM2 Condition on Discharge: Fair Activity: Resume your previous activity Non-emergency contact: Primary Care Provider Call non-emergency contact if: you have any medication questions and your symptoms worsen Follow-up/Referrals: Candie Clemons MD [Primary Care Provider] - (Date & Time 10/27/2022 11:20 AM Provider Candie Clemons MD Department [facility] ) Diet: Carb Consistent or DM2 and Heart Healthy Addtl Attending Provider Instructions: Follow-up with your primary care physician within 1 week, likely you will need labs CBC/CMP/magnesium/phosphorus. Continue with IV antibiotic and fluconazole, follow-up with infectious disease doctor in 1 to 2 weeks time. Follow-up with the diabetic clinic closely for long-term management of your diabetes. Follow-up with your neurology as an outpatient. Take your medications as prescribed. Please make sure that you are able to get your medications today by calling your pharmacy before you leave the hospital so that your treatment continuity is not broken. Pending Studies at Discharge: No Stand-Alone Forms: [facility], Smoking Cessation Medications and DC Order Prescriptions: New fluconazole [Diflucan] 100 mg Tablet 400 mg PO Q24H 10 Days Qty: 40 0RF diphenhydramine HCl [Benadryl] 25 mg Capsule 25 mg PO Q8H 10 Days Qty: 30 0RF clopidogrel 75 mg Tablet 75 mg PO QAM Qty: 30 0RF ceftazidime 2 gram recon soln 2 g IV Q8H 10 Days Qty: 30 0RF Continued ferrous sulfate [Iron (ferrous sulfate)] 325 mg (65 mg iron) tablet 325 mg PO BID cyanocobalamin (vitamin B-12) 1,000 mcg capsule 1,000 mcg PO DAILY Digestive Advantage Prob Gummy 250 million cell tablet,chewable 250 cell PO QAM nystatin 100,000 unit/gram cream 1 applic topical BID PRN (Reason: Skin Irritation) magnesium sulfate 100 mg capsule 400 mg PO QDL (DME) Wheelchair (Powered) Device See Rx Instructions .Route Qty: 1 0RF Rx Instructions: wheelchair repair- left arm (DME) Hospital Bed Homecare Misc See Rx Instructions .Route Qty: 1 0RF Rx Instructions: REPLACEMENT HOSPITAL BED MATTRESS albuterol sulfate [ProAir HFA] 90 mcg/actuation HFA aerosol inhaler 2 inh INH Q6H PRN (Reason: Shortness Of Breath Or Wheezing) Qty: 8 3RF (DME) Mattress (Air or other) Misc See Rx Instructions .Route Qty: 1 0RF Rx Instructions: ALTERNATING PRESSURE MATTRESS FOR HOSPITAL BED famotidine 40 mg tablet 40 mg PO HS Qty: 90 3RF (DME) pen needle, diabetic [BD Ultra-Fine Mini Pen Needle] 31 gauge x 3/16" needle See Rx Instructions .ROUTE .MEDSUPPLY Qty: 200 3RF Rx Instructions: Use to inject insulin QID (DME) Dexcom G6 Sensor Device See Rx Instructions .Route Qty: 3 11RF Rx Instructions: Change sensor every [address] [place] Dexcom G6 Transmitter Device See Rx Instructions .Route Qty: 1 3RF Rx Instructions: Change transmitter every 90 days riboflavin (vitamin B2) 400 mg tablet 400 mg PO Q OTHER DAY Rx Instructions: every other day loxapine succinate 5 mg capsule 5 mg PO TID PRN (Reason: Anxiety) cyclobenzaprine 5 mg tablet 5 mg PO TID PRN (Reason: muscle spasm) sucralfate [Carafate] 1 gram tablet 1 g PO BID PRN (Reason: gastritis) (DME) Accu-Chek Guide test strips Strip See Rx Instructions .Route Qty: 400 3RF Rx Instructions: Test blood sugar four times daily venlafaxine [Effexor XR] 75 mg capsule,extended release 24hr 75 mg PO QAM Rx Instructions: TAKE WITH 150MG CAPSULE = 225MG DAILY. trazodone 150 mg tablet 300 mg PO HS Rexulti 4 mg tablet 4 mg PO QAM venlafaxine 150 mg Tablet Extended Release 24hr 150 mg PO QAM Rx Instructions: TAKE WITH 75MG CAPSULE = 225MG DAILY. acetaminophen [Tylenol Extra Strength] 500 mg Tablet 500 - 1,000 mg PO DIRECTED PRN (Reason: Pain) Trulicity 4.5 mg/0.5 mL pen injector 4.5 mg subcut Q7D Rx Instructions: THURSDAYS levalbuterol HCl 0.63 mg/3 mL solution for nebulization 0.63 mg inhalation Q6H PRN (Reason: Shortness Of Breath) Rx Instructions: INHALE 1 VIAL VIA NEBULIZER EVERY 6 HOURS NEEDED FOR SHORTNESS OF BREATH Linzess 290 mcg capsule 290 mcg PO DAILYBB Trelegy Ellipta 100-62.5-25 mcg blister with device 1 inh INHALATION QAM divalproex 500 mg tablet extended release 24 hr 2,000 mg PO QAM Eliquis 5 mg tablet 5 mg PO AMHS albuterol sulfate 90 mcg/actuation HFA aerosol inhaler 2 puff INHALATION AMHS Multivitamin Gummies 200 mcg Tablet,Chewable 1 tab PO QDL clotrimazole 1 % cream 1 applic TOPICAL DIRECTED PRN (Reason: BUTTOCKS WHEN SOILED.) montelukast [Singulair] 10 mg tablet 10 mg PO PM levothyroxine [Synthroid] 100 mcg tablet 100 mcg PO QAM dicyclomine 10 mg Capsule 20 mg PO AMPM Rx Instructions: take with breakfast and supper clorazepate dipotassium 3.75 mg Tablet 3.75 mg PO TID loratadine 10 mg Tablet 20 mg PO QAM furosemide 40 mg tablet 40 mg PO QDD cetirizine 10 mg tablet 10 mg PO DAILY PRN (Reason: PRIOR TO ANTIBIOTICS) Rx Instructions: GIVE 45 MINUTES PRIOR TO ANTIBIOTICS!!!! clonazepam 0.5 mg Tablet 0.5 mg PO HS Rx Instructions: administer 30 minutes before bedtime menthol-zinc oxide [Calmoseptine] 0.44-20.6 % Ointment 1 applic TOPICAL DIRECTED PRN (Reason: UNDER XEROFOAM TO BUTTOCKS) Rx Instructions: APPLY TO SORE ON BUTTOCKS, THEN APPLY XEROFOAM TO AREA. (DME) XEROFORM Misc atorvastatin 40 mg tablet 40 mg PO QDD ondansetron 8 mg tablet,disintegrating 8 mg translingual Q6H PRN (Reason: NAUSEA/VOMITING) Rx Instructions: TAKE 1 TABLET SUBLINGUALLY EVERY 6 HOURS NEEDED FOR NAUSEA pantoprazole 40 mg tablet,delayed release (DR/EC) 40 mg PO BID Rx Instructions: TAKE 1 TABLET BY MOUTH TWICE A DAY insulin aspart U-100 [Novolog FlexPen U-100 Insulin] 100 unit/mL (3 mL) insulin pen 25 unit subcut TIDM Rx Instructions: sliding scale as per carb ratio insulin glargine [Lantus Solostar U-100 Insulin] 100 unit/mL (3 mL) insulin pen 50 unit subcut HS Changed atenolol 100 mg tablet 50 mg PO HS Qty: 15 0RF Discontinued daptomycin 500 mg recon soln 600 mg IV DAILY Qty: 17 0RF Rx Instructions: COURSE ENDS 10/19/22. administer over 30 mins Discharge Orders: Discharge Order (Routine); Ordered 10/22/22 Ordered By: Meron Brand Admission Data Admit Date/Time: 10/16/22 12:12 Attending Provider: Meron Brand Admit Provider: Zac Reddy Primary Care Provider: Candie Clemons Other Providers: Zac Reddy ; Chung Galan Brian A. ; Enrrique Burnham ; Frandy Kirk ; Brown Barrett ; Darian Jacobo I. ; Shon Chase II ; Nohemi Burgos ; Werner Almanza ; Rocael Weaver ; Spencer Ortiz ; [facility],[place], Located Within [facility]
== END 2022-10-22 11:10 | disposition home health service (06) | DRG 690 ==
LOC: ED 14:45 → INTOOBSV 18:19 → 3E 18:19 → SUATTDRO 18:19 → 3E 19:36 → 2N 10-16 08:20 → SUATTDRO 10-16 12:12